=== PATIENT | female | born 1960 | race Caucasian/White ===

== ENCOUNTER → 2018-05-22 16:58 | Outpatient (CLI) | payer MEDICAID, SELFPAY ==
[2018-05-26 14:11] LABS: HPV APTIMA, High Risk Negative (Negative)
== END ==
PROVIDERS: Obstetrics & Gynecology; Family Provider Family Medicine; PCP Family Medicine; Referring Provider Nurse Practitioner Women's Health; Visit Provider Nurse Practitioner Women's Health
DX: N39.45 Continuous leakage (principal); Z12.4 Encounter for screening for malignant neoplasm of cervix
CPT/HCPCS: 87077; 87086; 87088; 87186; 87624; 88175; G0145

== ENCOUNTER → 2018-08-23 12:11 | Outpatient (CLI) | payer MEDICAID, SELFPAY ==
--- NOTE | 2018-08-23 12:15 | BI_ITS ---
MAMMOGRAPHY - BILATERAL SCREENING REASON FOR EXAM: Female, 58 years old. Routine annual screening examination. PERTINENT HISTORY: Sister with breast cancer. TECHNIQUE: Digital bilateral breast nathan (3D mammographic acquisition) in the CC and MLO projections. 2-D mediolateral oblique (MLO) and craniocaudad (CC) views of both breasts were obtained. CAD: Full Field Digital Mammography with Computer Added Detection was performed. COMPARISON: Comparison is made with prior study dated May 10, 2017 and November 27, 2015. FINDINGS: Breast Composition: The breasts are almost entirely fatty. There are no dominant masses or suspicious calcifications. No other significant abnormalities are identified. There has been no significant change since the prior study. BI/SCREENING MAMM (CAD), BILAT IMPRESSION: Stable bilateral screening mammogram. Yearly follow-up mammogram recommended. (A) ASSESSMENT CATEGORY: BIRADS Category 1: Negative. A letter regarding these results will be sent to the patient by the facility within 30 days. Approximately 10% of breast cancers are not detected by mammography. A normal mammogram should not delay biopsy of a clinically suspicious abnormality. [id number] Electronically Signed: Marvel Pierce MD at 14:19 EST , Service support ,
== END ==
PROVIDERS: Family Provider Family Medicine; PCP Family Medicine; Referring Provider Obstetrics & Gynecology; Visit Provider Obstetrics & Gynecology
DX: Z12.31 Encounter for screening mammogram for malignant neoplasm of breast (principal)
CPT/HCPCS: 77063; 77067

== ENCOUNTER → 2018-11-08 | Outpatient (CLI) | payer MEDICAID, SELFPAY ==
[2018-05-22 14:18] VITALS: BMI 43.9
--- NOTE | 2018-11-08 14:40 | NEURO ---
NCS and/or EMG Patient Report Ordering Doctor: Meagan Yusuf DATE OF SERVICE: 11/08/18 Alejandra Rodriguez is a 58-year-old female presents for electrodiagnostic testing of the left upper kennedy. She reports persistent pain around the left shoulder radiating to the hand. Electrodiagnostic findings: Left median motor nerve demonstrates normal distal latency, amplitude and conduction velocity. Normal left ulnar motor response. Normal left ulnar and median F wave. Sensory responses are within normal limits. Needle EMG testing shows no evidence of denervation in any muscles tested. Motor unit action potentials are of normal amplitude and duration. Electrodiagnostic assessment: This is a normal electrdiagnostic study of the left upper limb. There is no electrodiagnostic evidence for peripheral neuropathy or cervical radiculopathy.
== END | disposition home or self-care (01) ==
LOC: PSN 13:43
PROVIDERS: Family Provider Family Medicine; PCP Family Medicine; Referring Provider Physician Assistant; Visit Provider Physician Assistant
DX: R20.0 Anesthesia of skin (principal); R20.2 Paresthesia of skin
CPT/HCPCS: 95886; 95910

== ENCOUNTER → 2019-01-12 | Outpatient (CLI) | payer MEDICAID, SELFPAY ==
--- NOTE | 2019-01-12 13:46 | CT_ITS ---
STUDY: CT ABDOMEN AND PELVIS WITH AND WITHOUT CONTRAST REASON FOR EXAM: Female, 58 years old. Hematuria RADIATION DOSAGE (If Supplied By Facility): CTDIvol = ( 20.69 ) mGy, DLP = ( 2679.04 ) mGycm TECHNIQUE: Transaxial images were obtained from the dome of the diaphragm to the symphysis pubis without oral contrast. 100 IV Isovue 300 was administered. Sagittal and coronal images were reconstructed. Individualized dose optimization techniques were used for this CT. COMPARISON: None. FINDINGS: There is atelectasis noted at the lung bases. There is a trace pericardial effusion. Normal liver. There are surgical clips in the gallbladder fossa consistent with a prior cholecystectomy. Normal spleen. Normal pancreas. Normal bilateral adrenal glands. Normal right kidney. Normal left kidney. Normal visualized stomach. Normal small intestine. Normal colon. The appendix is visualized and appears normal. There is diffuse atherosclerotic calcification of the abdominal aorta, without a demonstrated aneurysm. Normal inferior vena cava. Normal retroperitoneum. Normal urinary bladder. Normal abdominal wall. Normal osseous structures. CT/CT Abd/Pelvis W/WO Contrast IMPRESSION: No cause for patient's hematuria identified on this study. Trace pericardial effusion. Atherosclerosis. Electronically Signed: Aldo Velasco, at 19:24 EDT Tel , Service support ,
[2019-01-12 14:16] LABS: CREATININE FINGERSTICK 1.2 mg/dL (0.55-1.02)
== END | disposition home or self-care (01) ==
LOC: CT 13:44
PROVIDERS: Family Provider Family Medicine; PCP Family Medicine; Referring Provider Urology; Visit Provider Urology
DX: R31.0 Gross hematuria (principal)
CPT/HCPCS: 74178; Q9967

== ENCOUNTER → 2019-08-21 | Outpatient (CLI) | payer MEDICAID, SELFPAY ==
[2019-08-21 13:50] VITALS: BMI 43.9
[2019-08-21 17:03] LABS: Chlamydia Trachomatis by PCR Negative (Negative); Neisserai gonorrhoeae by PCR Negative (Negative); Probe Check PASS; Specimen Processing Control PASS
[2019-08-21 17:04] LABS: Sample Adequacy Control PASS
== END | disposition home or self-care (01) ==
LOC: LABSPEC 15:18
PROVIDERS: PCP Family Medicine; Referring Provider Nurse Practitioner Women's Health; Visit Provider Nurse Practitioner Women's Health
DX: Z11.3 Encounter for screening for infections with a predominantly sexual mode of transmission (principal)
CPT/HCPCS: 87491; 87591

== ENCOUNTER → 2019-09-18 12:02 | Outpatient (CLI) | payer MEDICAID, SELFPAY ==
[2019-08-21 13:50] VITALS: BMI 43.9
--- NOTE | 2019-09-18 12:03 | BI_ITS ---
MAMMOGRAPHY - BILATERAL SCREENING REASON FOR EXAM: Female, 59 years old. Routine annual screening examination. PERTINENT HISTORY: Sister with breast cancer. Chronic right breast pain. TECHNIQUE: Digital bilateral breast yohannes (3D mammographic acquisition) in the CC and MLO projections. 2-D mediolateral oblique (MLO) and craniocaudad (CC) views of both breasts were obtained. CAD: Full Field Digital Mammography with Computer Added Detection was performed. COMPARISON: Comparison is made with prior study dated August 23, 2018 and May 10, 2017. FINDINGS: Breast Composition: The breasts are almost entirely fatty. There are no dominant masses or suspicious calcifications. No other significant abnormalities are identified. There has been no significant change since the prior study. BI/SCREEN MAMM (CAD) W/YOHANNES BILAT IMPRESSION: Stable bilateral screening mammogram. Yearly follow-up mammogram recommended. (A) ASSESSMENT CATEGORY: BIRADS Category 1: Negative. A letter regarding these results will be sent to the patient by the facility within 30 days. Approximately 10% of breast cancers are not detected by mammography. A normal mammogram should not delay biopsy of a clinically suspicious abnormality. [id number] Electronically Signed: Marvel Pierce, at 12:59 EST , Service support ,
== END ==
PROVIDERS: Family Provider Family Medicine; PCP Family Medicine; Referring Provider Obstetrics & Gynecology; Visit Provider Obstetrics & Gynecology
DX: Z12.31 Encounter for screening mammogram for malignant neoplasm of breast (principal)
CPT/HCPCS: 77063; 77067

== ENCOUNTER 2020-07-01 15:40 | Emergency (ER) | payer MEDICAID, SELFPAY ==
[2019-08-21 13:50] VITALS: BMI 43.9
[2020-07-01 15:41] VITALS: BP 92/68; PULSE 67; RESP 21; TEMP 36.8; O2SAT 97; BMI 44.3
--- NOTE | 2020-07-01 15:45 | EKG12_ITS ---
Test Reason : CP Blood Pressure : / mmHG Vent. Rate : 063 BPM Atrial Rate : 063 BPM P-R Int : 146 ms QRS Dur : 090 ms QT Int : 410 ms P-R-T Axes : 067 030 072 degrees QTc Int : 419 ms Normal sinus rhythm Normal ECG Confirmed by GOLDY GUSTAFSON, MARY ([id number]), index editor JIGNA TERRAZAS ([id number]) on 07/09/2020 10:02:39 AM Referred By: POLA Confirmed By:KETURAH WINSLOW MD
--- NOTE | 2020-07-01 16:09 | RAD_ITS ---
STUDY: X-RAY CHEST REASON FOR EXAM: Female, 60 years old. COUGH,ABD PAIN, BODY ACHES TECHNIQUE: Single AP portable view of the chest. COMPARISON: 07/23/2015 FINDINGS: The lungs are clear and expanded. There is no demonstrated pleural abnormality. Normal size heart. Normal mediastinum and juan josé. Normal visualized pulmonary arteries. Normal visualized aortic arch and descending thoracic aorta. Normal visualized thoracic spine. Normal visualized ribs, clavicles, and shoulders. There is no demonstrated abnormality of the visualized soft tissue structures of the upper abdomen. RAD/Chest 1 View (Portable) IMPRESSION: Normal x-ray examination of the chest. Electronically Signed: Broderick Park MD at 16:26 EST Tel , Service support ,
--- NOTE | 2020-07-01 16:34 | ED.DCSUM_ITS ---
History of Present Illness Informant: Patient Narrative: 60-year-old female with extensive past medical history including morbid obesity, hypertension, diabetes, hyperlipidemia presents with concern for feeling unwell. Patient concerned she has pneumonia. Has had intermittent cough. Denies any fever or chills. Patient has had chest pain for multiple years and being seen at urgent care was sent to the emergency department for this issue. States that her sister has similar symptoms. Denies any nausea, vomiting, diaphoresis. Denies any urinary symptoms. <Guero Lindsay - Last Filed: 07/01/20 17:31> <Fili Hill - Last Filed: 07/01/20 17:47> Chief Complaint: Chest Pain Past Medical History Prior records reviewed: Yes Past Medical History: - - HTN, DM, HLD Surgical History: adenoidectomy, cholecystectomy, rotator cuff repair, tonsillectomy, - - tubal ligation. Excision of a cyst from her L neck Lives: With Family Smoking Status: Current every day smoker Alcohol: None Drugs: None <Guero Lindsay - Last Filed: 07/01/20 17:31> <Fili Hill - Last Filed: 07/01/20 17:47> - Allergies and Home Meds Allergies/Adverse Reactions: Allergies Penicillins Allergy (Intermediate, Verified 07/01/20 15:46) Hives carbamazepine [From Tegretol] Adverse Reaction (Intermediate, Verified 07/01/20 15:46) Nausea benztropine Adverse Reaction (Verified 07/01/20 15:46) Unknown diazepam [From Valium] Adverse Reaction (Verified 07/01/20 15:46) Other Sulfa (Sulfonamide Antibiotics) Adverse Reaction (Verified 07/01/20 15:46) Nausea thioridazine Adverse Reaction (Verified 07/01/20 15:46) Nausea thioridazine HCl [From Mellaril] Adverse Reaction (Verified 07/01/20 15:46) Other Primary Care Physician: Homer Bradford MD [Primary Care Provider] - Review of Systems General: Reports: Malaise. Denies: Chills, Fever, Sweats Eyes: Denies: Visual changes - bilaterally, Diplopia ENT: Denies: Rhinorrhea, Sore throat Cardiovascular: Reports: Chest pain. Denies: Palpitations Respiratory: Reports: Cough. Denies: Dyspnea, Dyspnea on exertion Gastrointestinal: Denies: Abdominal pain, Nausea, Vomiting, Diarrhea, Melena, Hematochezia Genitourinary: Denies: Dysuria, Hematuria, Frequency Musculoskeletal: Denies: Back pain, Extremity Pain Skin: Denies: Rash, Wounds Neurological: Denies: Headache, Weakness, Numbness <Guero Lindsay - Last Filed: 07/01/20 17:31> Physical Exam Vital Signs/Narrative: Vital Signs Temp Pulse Resp BP Pulse Ox 07/01/20 15:41 98.2 F 67 21 H 92/68 97 Inital Vital Signs reviewed: Yes General: Well nourished, Well developed, No Acute Distress Head: Normocephalic, Atraumatic Eyes: Perrl, EOMI ENT: Moist mucous membranes, No rhinorrhea Neck: Supple, Nontender Cardiovascular: Regular rate, Regular rhythm, No murmurs Respiratory: No distress, CTA bilaterally, Chest nontender Abdomen: Soft, Nontender, Nondistended, Normal bowel sounds Back: Nontender, Normal Inspection Extremities: Nontender, No edema Skin: Normal color, No rash Neurological: Alert, Oriented x3, Cranial nerves II-XII grossly intact, Normal Strength, Normal Sensation Psychological: Normal affect, Normal Mood <Guero Lindsay - Last Filed: 07/01/20 17:31> Vital Signs/Narrative: Vital Signs Temp Pulse Resp BP Pulse Ox 07/01/20 17:40 57 L 16 128/77 H 95 07/01/20 15:41 98.2 F 67 21 H 92/68 97 <Fili Hill - Last Filed: 07/01/20 17:47> Diagnostic/Tx/Re-eval Chest X-Ray - ED: 1 View, Read by ED Physician, Read by Radiologist, Normal Clinical Impression(s) from Imaging Studies Chest X-Ray 07/01/20 16:09 IMPRESSION: Normal x-ray examination of the chest. Electronically Signed: Broderick Park MD at 16:26 EST Tel , Service support , Laboratory Data 07/01/20 07/01/20 07/01/20 16:20 16:20 16:20 WBC 12.9 H RBC 4.42 Hgb 14.1 Hct 43.4 MCV 98.2 MCH 31.9 MCHC 32.5 RDW Std Deviation 47.3 H RDW Coeff of Robert 13.2 Plt Count 243 MPV 10.4 Immature Gran % (Auto) 0.300 Neut % (Auto) 77.2 H Lymph % (Auto) 15.0 L Hidalgo % (Auto) 5.7 Eos % (Auto) 1.5 Baso % (Auto) 0.3 Absolute Neuts (auto) 10.0 H Absolute Lymphs (auto) 1.94 Nucleated RBC % 0 Sodium 143 Potassium 4.0 Chloride 111 H Carbon Dioxide 31.0 Anion Gap 1 L BUN 13 Creatinine 1.27 H Estim Creat Clear Calc 39.94 Est GFR (MDRD) Af Amer 56 L Est GFR (MDRD) Non-Af 46 L BUN/Creatinine Ratio 10.2 Glucose 94 Lactic Acid 0.8 Calcium 9.0 Total Bilirubin 0.30 AST 18 ALT 25 Alkaline Phosphatase 64 Troponin I < 0.015 C-React Prot Ext Range 10.30 H Total Protein 6.9 Albumin 3.4 Globulin 3.5 Albumin/Globulin Ratio 1.0 - Rhythm Strip Rhythm Strip: Sinus Rhythm Rate: 63 Ectopy: None - EKG Initial EKG Interpretation: Sinus Rhythm - Sinus rhythm at 63 bpm. OH interval of 146 ms. QTC of 418 ms. No evidence of ST elevation or depression at this time. Unchanged from previous done on 07/23/2015. - Medical Decision Making Patient appears well nontoxic. Vital signs within normal limits. Triage blood pressure of 92 systolic. Repeated on my exam and was 110 systolic. Lab work within normal limits. Chest x-ray shows no acute process. Patient given small fluid bolus. Will be signed out pending coronavirus testing at 1730. Patient stable at time of transition of care. <Guero Lindsay - Last Filed: 07/01/20 17:31> - Medical Decision Making Coronavirus test is negative. Patient will be educated on symptomatic treatment. She will be discharged home to follow-up with her PCP <Fili Hill - Last Filed: 07/01/20 17:47> ED Disposition <Guero Lindsay - Last Filed: 07/01/20 17:31> <Fili Hill - Last Filed: 07/01/20 17:47> - Plan for ED Patient: Disposition: Home or Assisted Living Diagnosis: URI (upper respiratory infection) Instructions: ED URI, Viral, No Abx (Adult) Referrals: Homer Bradford MD [Primary Care Provider] -
[2020-07-01 16:36] LABS: Absolute Lymphocyte Count 1.94 X10^3/uL (0.83-4.51); Basophil# 0.04 X10^3/uL; Basophil% 0.3 % (0-1); Eosinophil# 0.19 X10^3/uL; Eosinophils% 1.5 % (0-5); Hematocrit 43.4 % (37-47); Hemoglobin 14.1 g/dL (12.0-15.0); Lymphocyte # 1.94 X10^3/ul (4.0); Mean Corp Hgb Conc 32.5 g/dL (32-36); Mean Corpuscular Hgb 31.9 pg (27.0-32.0); Mean Corpuscular Volume 98.2 fL (81-99); Mean Platelet Vol. 10.4 fl (6.2-12.0); Monocyte# 0.73 X10^3/uL; Monocyte% 5.7 % (0-10); NRBC Flagged by Analyzer 0 % (0-5); Neutrophil # 9.98 X10^3/uL (2.7-7.7); Neutrophil % 77.2 % (47-70); Platelet Count 243 K/mm3 (150-450); RBC Distribution Width CV 13.2 % (11.6-14.6); RBC Distribution Width SD 47.3 fl (35.1-43.9); Red Blood Count 4.42 M/mm3 (4.2-5.4); White Blood Count 12.9 K/mm3 (4.4-11.0)
[2020-07-01 17:07] LABS: Lactic Acid 0.8 mmol/L (0.4-1.9)
[2020-07-01 17:15] LABS: AST(SGOT) 18 U/L (15-37); Alanine Aminotransfer ALT/SGPT 25 U/L (13-56); Albumin, Serum 3.4 g/dL (3.2-5.0); Alkaline Phosphatase 64 U/L (45-117); Anion Gap 1 (5-15); BUN 13 mg/dL (7-18); BUN/Creat Ratio 10.2 RATIO (10-20); Chloride 111 mmol/L (98-107); Creatinine, Serum 1.27 mg/dL (0.55-1.02); EST Glomerular Filtration Rate 46 mL/min (>60); Est Glom Filt Rate - Afr Amer 56 mL/min (>60); Estimated Creatinine Clearance 39.94 ml/min; Globulin 3.5 g/dL (2.2-4.2); Glucose 94 mg/dL (74-106); Protein, Total 6.9 g/dL (6.4-8.2); Sodium Level 143 mmol/L (136-145)
[2020-07-01 17:40] VITALS: BP 128/77; PULSE 57; RESP 16; O2SAT 95
[2020-07-01 17:53] VITALS: BP 119/71; PULSE 61; RESP 15; O2SAT 96
== END 2020-07-01 18:00 | disposition home or self-care (01) ==
PROVIDERS: Emergency Provider Emergency Medicine; PCP Family Medicine
DX: J06.9 Acute upper respiratory infection, unspecified (principal); I10 Essential (primary) hypertension; E11.9 Type 2 diabetes mellitus without complications; E78.5 Hyperlipidemia, unspecified; E66.01 Morbid (severe) obesity due to excess calories; Z79.82 Long term (current) use of aspirin; Z79.84 Long term (current) use of oral hypoglycemic drugs; Z79.899 Other long term (current) drug therapy
CPT/HCPCS: 71045; 80053; 83605; 84484; 85025; 86140; 87040; 87426; 93005; 96360; 99284; J7040; A4216

== ENCOUNTER 2020-08-26 05:28 | Day surgery (SDC) | payer MEDICAID, SELFPAY ==
[2020-08-26] VITALS (8 sets, daily range): BP systolic 94–120; BP diastolic 59–81; PULSE 62–86; RESP 16–18; TEMP 36.2–36.9; O2SAT 92–97; BMI 44.6
[2020-08-26] MEDS: Lactated Ringers 1,000 ML 100 ML IV (06:23)
[2020-08-26] MEDS: Vancomycin IV 1,000 MG/200 ML BAG 200 MG IV (06:24)
--- NOTE | 2020-08-26 07:30 | RAD_ITS ---
STUDY: X-RAY - PELVIS REASON FOR EXAM: Female, 60 years old. INTERSTIM THERAPY 1 TECHNIQUE: One view of the pelvis was obtained. COMPARISON: None. FINDINGS: Intraoperative imaging provided for InterStim therapy. The tip of the electrode is seen along the superior right posterior aspect of the pelvis. RAD/Pelvis 1 or 2 Views IMPRESSION: The tip of the electrode is seen in the posterior superior aspect of the right hemipelvis. Electronically Signed: Marvel Pierce MD at 13:00 EST , Service support ,
[2020-08-26] MEDS: Lidocaine 2% /Epi 1:100 (50ml) 50 ML Vial (08:00)
[2020-08-26 08:01] LABS: Bedside Glucose 124 mg/dL (70-110)
--- NOTE | 2020-08-26 08:24 | DCINST_ITS ---
Discharge Diet: No Restrictions Discharge Activity: May not drive while taking narcotic pain medications., May Not Shower May resume sexual activity in: 4 weeks Additional Activity Instructions:: Minimize lifting, pushing, pulling, turning and bending. Call your doctor if your incision/area has: Continuous Slow Oozing, Sudden Increased Bleeding, Increased Pain/ Swelling, Foul Smelling Discharge Call your doctor if you observe: Fever of 101 or Higher, Inability to urinate, Inability to have a bowel movement, Calf discomfort, Uncontrolled pain Suture Line Care: Avoid Pulling/Pushing, Avoid Pinching/Bending Cleanse incision/area with: Keep Dressing Clean & Dry Allergies/Adverse Reactions: Allergies Penicillins Allergy (Intermediate, Verified 08/26/20 06:03) Hives carbamazepine [From Tegretol] Adverse Reaction (Intermediate, Verified 08/26/20 06:03) Nausea benztropine Adverse Reaction (Verified 08/26/20 06:03) Unknown diazepam [From Valium] Adverse Reaction (Verified 08/26/20 06:03) Other Sulfa (Sulfonamide Antibiotics) Adverse Reaction (Verified 08/26/20 06:03) Nausea thioridazine Adverse Reaction (Verified 08/26/20 06:03) Nausea thioridazine HCl [From Mellaril] Adverse Reaction (Verified 08/26/20 06:03) Other Medications to take at Discharge albuterol sulfate 90 mcg/actuation aerosol inhaler 1 puff INHALATION Q6H 06/22/17 amantadine HCl 100 mg capsule 100 mg PO BID 06/22/17 aspirin 81 mg tablet,delayed release 81 mg PO QDAY 06/22/17 cholecalciferol (vitamin D3) 25 mcg (1,000 unit) capsule 1,000 unit PO ONCE 06/22/17 fludrocortisone 0.1 mg tablet 0.1 mg PO QDAY 06/22/17 hyoscyamine sulfate 0.375 mg tablet,extended release,12 hr 0.375 mg PO BID 06/22/17 lorazepam 0.5 mg tablet 0.5 mg PO BID 06/22/17 lovastatin 20 mg tablet 20 mg PO QDAY 06/22/17 melatonin 10 mg capsule 10 mg PO HS PRN 06/22/17 metformin 500 mg tablet 500 mg PO DAILY 06/22/17 metoprolol tartrate 25 mg tablet 25 mg PO BID 12/06/17 nitroglycerin 0.4 mg sublingual tablet 0.4 mg SUBLINGUAL Q5M PRN 06/22/17 omeprazole 40 mg capsule,delayed release 40 mg PO QDAY 06/22/17 quetiapine 200 mg tablet 200 mg PO BID 06/22/17 spironolactone 25 mg tablet 25 mg PO QDAY 06/22/17 sumatriptan succinate 25 mg tablet 25 mg PO ONCE 06/22/17 trazodone 100 mg tablet 100 mg PO QHS PRN 06/22/17 acetaminophen 325 mg capsule 325 mg PO Q6H 05/22/18 multivitamin,nx-flho-dcauarnv 1 tab PO DAILY 05/22/18 omega 7-hnq-akz-fish oil 1,000 mg (120 mg-180 mg) capsule 1 cap PO DAILY cap 05/22/18 oxybutynin chloride 15 mg tablet,extended release 24 hr 15 mg PO DAILY 05/22/18 Citalopram [Celexa] 10 mg PO DAILY 08/19/20 Isosorbide Mononitrate [Imdur] 30 mg PO DAILY 08/19/20 Mirabegron [Myrbetriq] 50 mg PO DAILY 08/19/20 Mometasone/Formoterol [Dulera 100 Mcg/5 Mcg Inhaler] 8.8 gm IH BID 08/19/20 Cephalexin [Keflex] 500 mg PO Q12 3 Days #6 cap 08/26/20 Oxycodone HCl/Acetaminophen [Percocet 5/325] 2 tablet PO Q8H PRN PRN 7 Days #20 tablet 08/26/20 Primary Care Physician: Homer Bradford MD [Primary Care Provider] - Test Results: Test results from this visit will be discussed in further detail at your follow- up appointment, if applicable. Please Follow Up With: Jennifer Alba MD When: as scheduled next week Proposed Discharge Date: 08/26/20
--- NOTE | 2020-08-26 08:29 | PCM.OPRPT ---
Problem List (1) Urgency of urination Status: Acute (2) Urge incontinence Status: Acute Report of Operation Date of Procedure: 08/26/20 Pre-Operative Diagnosis: Refractory urgency of urination, urge incontinence Post-Operative Diagnosis: Same Surgery/Procedure Performed:: InterStim stage I Description of Surgical Findings:: right side, S3, curved stylette, good estefani and toe response on all 4 leads. Type of Anesthesia:: MAC Estimated Blood Loss (mL): 5cc Description of Procedure: The patient is a 60-year-old female who has failed level 1 and 2 management for her urgency and urge incontinence. She has also failed PTNS as an outpatient. She now presents for trial InterStim 1 therapy. Informed consent was obtained including a discussion of the risks benefits alternatives to the procedure and the current COVID-19 virus situation. The patient was taken to the operating room and placed in a prone position on the operating room table. She was appropriately secured to the table and dependent areas were padded. Anesthesia monitored the head, neck, airway, IV access and vital signs throughout the case. Once anesthesia was appropriately administered the patient was prepped and draped in usual sterile fashion. Landmarks were identified using fluoroscopy of the pelvis. The skin above the right S3 foramen was infiltrated with 2% lidocaine with epinephrine. The needle was then inserted through the S3 foramen confirmed on lateral view of the sacrum. There was a good estefani and toe response. The guidewire was then passed through the needle and an incision was made in the skin. The dilator was then passed into appropriate position as identified on fluoroscopy. The lead was then inserted into position using the curved stylette. On stimulation all 4 leads received good estefani and toe response. The lead obturator was then removed and the dilator sheath was removed. The pocket site was identified infiltrated with lidocaine and an incision was made. The tunneling device was used to bring the lead into correct position. The tunneling device was used once again to attach to the lead extension with it exiting on the contralateral side. The lead extension was secured using Prolene suture and the lead was dried and inserted into the lead extension and secured using the torque wrench. At this time the pocket site was closed with 3-0 interrupted Vicryl followed by 4-0 subcuticular suturing. The lead insertion site was closed with 4-0 Vicryl and the lead extension exit site was also closed with 4-0 Vicryl. Skin glue was applied to the pocket site and lead insertion sites. Tegaderm was placed followed by cloth tape over the stimulator. The patient was awakened and taken to the recovery room in good condition. There were no complications during this procedure. Grafts/Implants Used: InterStim lead and lead extension - Complications None - Admit VTE Documentation VTE Present on Admission: No VTE Mechan Device Prophylaxis: None VTE Pharm Prophylaxis ordered?: No Reason prophylaxis not ordered:: Treatment Not Indicated
== END 2020-08-26 10:51 | disposition home or self-care (01) ==
LOC: SDC 05:29 → AC 05:29
PROVIDERS: PCP Family Medicine; Referring Provider Urology; Visit Provider Urology
PROC: (CPT 64581; principal; 2020-08-26 07:20)
DX: N39.41 Urge incontinence (principal); Z20.828 Contact with and (suspected) exposure to other viral communicable diseases; I10 Essential (primary) hypertension; J44.9 Chronic obstructive pulmonary disease, unspecified; K21.9 Gastro-esophageal reflux disease without esophagitis; E11.9 Type 2 diabetes mellitus without complications; F41.9 Anxiety disorder, unspecified; F32.9 Major depressive disorder, single episode, unspecified; Z86.2 Personal history of diseases of the blood and blood-forming organs and certain disorders involving the immune mechanism; Z86.73 Personal history of transient ischemic attack (TIA), and cerebral infarction without residual deficits; Z79.84 Long term (current) use of oral hypoglycemic drugs; Z79.899 Other long term (current) drug therapy
CPT/HCPCS: 00400; 64581; 64590; 72170; 76000; 82962; 87426; C9803; J7120; C1820; J2405

== ENCOUNTER 2020-09-09 05:20 | Day surgery (SDC) | payer MEDICAID, SELFPAY ==
[2020-08-26 05:59] VITALS: BMI 44.6
[2020-09-09] VITALS (8 sets, daily range): BP systolic 88–134; BP diastolic 11–73; PULSE 67–74; RESP 16–18; TEMP 36.8–37.2; O2SAT 93–97; BMI 43.6
[2020-09-09] MEDS: Vancomycin IV 1,000 MG/200 ML BAG 200 MG IV (06:14)
[2020-09-09] MEDS: Lactated Ringers 1,000 ML 100 ML IV (06:14)
--- NOTE | 2020-09-09 07:28 | PCM.OPRPT ---
Problem List (1) Urgency of urination Status: Acute (2) Urge incontinence Status: Acute Report of Operation Date of Procedure: 09/09/20 Pre-Operative Diagnosis: Urgency of urination, urge incontinence Post-Operative Diagnosis: same Surgery/Procedure Performed:: Interstim Stage 2 Type of Anesthesia:: MAC Description of Procedure: The patient is a 60-year-old female who has successfully undergone a stage I InterStim and now presents for implantation of the IPG. Informed consent was obtained including a discussion of the risks of COVID-19. She understood and agreed to proceed. The patient was taken to the operating room and placed on the operating room table in a prone position and was appropriately padded and secured to the table. Anesthesia monitored the head, neck, airway, IV access and vital signs throughout the case. Once anesthesia was appropriate ministered the patient was prepped and draped in usual sterile fashion. The lateral aspect of her incision over the pocket site was infiltrated with lidocaine. The incision was opened with a knife followed by hemostats. There is a small amount of clear serous fluid from the pocket site that did not appear infected. The lead was brought into the operative field. Using the torque wrench, the lead was released from the lead extension. The lead extension was cut and removed from the field. The pocket site was enlarged using blunt dissection and Bovie cautery. Hemostasis was achieved with cautery. Care was taken to avoid being close to the lead. The lead was dried and inserted into the IPG, and secured using the torque wrench. The IPG was placed into the pocket site and impedances were tested and found to be appropriate. The incision was closed in 2 layers using 3-0 interrupted Vicryl deep, and 4-0 subcuticular suturing on the skin. Skin glue was then applied and allowed to dry completely. The patient was then awakened and taken to the recovery room in good condition. There were no complications during the procedure. Grafts/Implants Used: IPG Interstim - Complications none - Admit VTE Documentation VTE Present on Admission: Yes VTE Mechan Device Prophylaxis: SCD's VTE Pharm Prophylaxis ordered?: No Reason prophylaxis not ordered:: Treatment Not Indicated
[2020-09-09] MEDS: Lidocaine 1% /Epi 1:100 (20ml) 20 ML Vial (07:41)
--- NOTE | 2020-09-09 08:05 | PCM.DC.URO ---
Discharge Diet: No Restrictions Discharge Activity: May not drive while taking narcotic pain medications., May Shower May resume sexual activity in: 1 week Call your doctor if your incision/area has: Continuous Slow Oozing, Sudden Increased Bleeding, Increased Pain/ Swelling, Increased Redness, Foul Smelling Discharge, Swelling at the incision site Call your doctor if you observe: Fever of 101 or Higher, Inability to urinate, Inability to have a bowel movement, Calf discomfort, Uncontrolled pain Allergies/Adverse Reactions: Allergies Penicillins Allergy (Intermediate, Verified 09/05/20 11:25) Hives carbamazepine [From Tegretol] Adverse Reaction (Intermediate, Verified 09/05/20 11:25) Nausea benztropine Adverse Reaction (Verified 09/05/20 11:25) Unknown diazepam [From Valium] Adverse Reaction (Verified 09/05/20 11:25) Other Sulfa (Sulfonamide Antibiotics) Adverse Reaction (Verified 09/05/20 11:25) Nausea thioridazine Adverse Reaction (Verified 09/05/20 11:25) Nausea thioridazine HCl [From Mellaril] Adverse Reaction (Verified 09/05/20 11:25) Other Medications to take at Discharge albuterol sulfate 90 mcg/actuation aerosol inhaler 1 puff INHALATION Q6H 06/22/17 amantadine HCl 100 mg capsule 100 mg PO BID 06/22/17 aspirin 81 mg tablet,delayed release 81 mg PO QDAY 06/22/17 cholecalciferol (vitamin D3) 25 mcg (1,000 unit) capsule 1,000 unit PO ONCE 06/22/17 fludrocortisone 0.1 mg tablet 0.1 mg PO QDAY 06/22/17 hyoscyamine sulfate 0.375 mg tablet,extended release,12 hr 0.375 mg PO BID 06/22/17 lorazepam 0.5 mg tablet 0.5 mg PO BID 06/22/17 lovastatin 20 mg tablet 20 mg PO QDAY 06/22/17 melatonin 10 mg capsule 10 mg PO HS PRN 06/22/17 metformin 500 mg tablet 500 mg PO DAILY 06/22/17 metoprolol tartrate 25 mg tablet 25 mg PO BID 06/22/17 nitroglycerin 0.4 mg sublingual tablet 0.4 mg SUBLINGUAL Q5M PRN 06/22/17 omeprazole 40 mg capsule,delayed release 40 mg PO QDAY 06/22/17 quetiapine 200 mg tablet 200 mg PO BID 06/22/17 spironolactone 25 mg tablet 25 mg PO QDAY 06/22/17 sumatriptan succinate 25 mg tablet 25 mg PO ONCE 06/22/17 trazodone 100 mg tablet 100 mg PO QHS PRN 06/22/17 acetaminophen 325 mg capsule 325 mg PO Q6H 05/22/18 multivitamin,ig-kekx-zmrcvgwi 1 tab PO DAILY 05/22/18 omega 1-oki-uyh-fish oil 1,000 mg (120 mg-180 mg) capsule 1 cap PO DAILY cap 05/22/18 oxybutynin chloride 15 mg tablet,extended release 24 hr 15 mg PO DAILY 05/22/18 Citalopram [Celexa] 10 mg PO DAILY 08/19/20 Isosorbide Mononitrate [Imdur] 30 mg PO DAILY 08/19/20 Mirabegron [Myrbetriq] 50 mg PO DAILY 08/19/20 Mometasone/Formoterol [Dulera 100 Mcg/5 Mcg Inhaler] 8.8 gm IH BID 08/19/20 Cephalexin [Keflex] 500 mg PO Q12 3 Days #6 cap 09/09/20 Oxycodone HCl/Acetaminophen [Percocet 5/325] 2 tablet PO Q8H PRN PRN 7 Days #20 tablet 09/09/20 The following prescriptions were given: Cephalexin [Keflex] 500 mg PO Q12 3 Days #6 cap Transmission Status: Pending to [place] [address] Oxycodone HCl/Acetaminophen [Percocet 5/325] 2 tablet PO Q8H PRN PRN 7 Days #20 tablet PRN Reason: Pain Transmission Status: Sent to [place] [address] Primary Care Physician: Homer Bradford MD [Primary Care Provider] - Test Results: Test results from this visit will be discussed in further detail at your follow-up appointment, if applicable. Please Follow Up With: Jennifer Alba MD When: call for appt to be seen in 2 weeks Proposed Discharge Date: 09/09/20
--- NOTE | 2020-09-09 08:31 | SUR.PREOP ---
Accucheck of 119 obtained 09/09/2020 at 0640 but did not record time correctly due to computer system update.
[2020-09-09 09:15] LABS: Bedside Glucose 119 mg/dL (70-110)
== END 2020-09-09 09:00 | disposition home or self-care (01) ==
LOC: SDC 05:20 → AC 05:21
PROVIDERS: PCP Family Medicine; Referring Provider Urology; Visit Provider Urology
PROC: (CPT 64581; principal; 2020-09-09 07:20)
DX: N39.41 Urge incontinence (principal); R35.1 Nocturia; Z20.828 Contact with and (suspected) exposure to other viral communicable diseases; I10 Essential (primary) hypertension; J44.9 Chronic obstructive pulmonary disease, unspecified; K21.9 Gastro-esophageal reflux disease without esophagitis; F41.9 Anxiety disorder, unspecified; F32.9 Major depressive disorder, single episode, unspecified; Z86.2 Personal history of diseases of the blood and blood-forming organs and certain disorders involving the immune mechanism; Z79.899 Other long term (current) drug therapy; F17.200 Nicotine dependence, unspecified, uncomplicated
CPT/HCPCS: 64581; 64590; 82962; 87426; C9803; J7120; C1767; J2405

== ENCOUNTER → 2021-06-24 07:55 | Outpatient (CLI) | payer MEDICAID, SELFPAY ==
--- NOTE | 2021-06-24 07:57 | BI_ITS ---
MAMMOGRAPHY - BILATERAL SCREENING REASON FOR EXAM: Female, 61 years old. Routine annual screening examination. PERTINENT HISTORY: Sister with breast cancer. TECHNIQUE: Digital bilateral breast yohannes (3D mammographic acquisition) in the CC and MLO projections. 2-D mediolateral oblique (MLO) and craniocaudad (CC) views of both breasts were obtained. CAD: Full Field Digital Mammography with Computer Added Detection was performed. COMPARISON: Comparison is made with prior study of 09/18/2019 and 08/23/2018. FINDINGS: Breast Composition: The breasts are almost entirely fatty. There are no dominant masses or suspicious calcifications. No other significant abnormalities are identified. There has been no significant change since the prior study. BI/SCRN MAMM (CAD)W/YOHANNES BILAT IMPRESSION: Stable bilateral screening mammogram. Yearly follow-up mammogram recommended. (A) ASSESSMENT CATEGORY: BIRADS Category 1: Negative. A letter regarding these results will be sent to the patient by the facility within 30 days. Approximately 10% of breast cancers are not detected by mammography. A normal mammogram should not delay biopsy of a clinically suspicious abnormality. [id number] Electronically Signed: Marvel Pierce MD at 11:11 EST , Service support ,
== END ==
PROVIDERS: PCP Family Medicine; Visit Provider Obstetrics & Gynecology
DX: Z12.31 Encounter for screening mammogram for malignant neoplasm of breast (principal)
CPT/HCPCS: 77063; 77067

== ENCOUNTER 2021-08-25 15:42 | Inpatient (IN) | payer MEDICAID, SELFPAY ==
[2021-08-25] VITALS (20 sets, daily range): BP systolic 82–151; BP diastolic 51–135; PULSE 82–110; RESP 12–26; TEMP 36.6–37.7; O2SAT 69–95; BMI 51.5; BMI 43.7
--- NOTE | 2021-08-25 16:04 | EKG12_ITS ---
Test Reason : Blood Pressure : / mmHG Vent. Rate : 093 BPM Atrial Rate : 234 BPM P-R Int : 000 ms QRS Dur : 082 ms QT Int : 372 ms P-R-T Axes : 053 010 073 degrees QTc Int : 462 ms Sinus rhythm Abnormal ECG Confirmed by CHEL RUIZ MD ([id number]), publications editor JIGNA TERRAZAS ([id number]) on 08/27/2021 2:32:54 PM Referred By: DAQUAN Confirmed By:CHEL RUIZ MD
--- NOTE | 2021-08-25 16:11 | EDS_ITS ---
HPI History of Present Illness Chief Complaint: Shortness of Breath Detail of Chief Complaint: Shortness of breath, cough RICH Informant: patient and other Onset/Context/Timing Onset: Weeks (Approximately 2 weeks ago) Context: gradual Timing: Continuous Quality: Positive for Dyspnea on exertion; Negative for Orthopnea, PND and Wheez ing Current Severity: Mild (On oxygen at rest) Maximum Severity: Severe Worsened by: Exertion and Coughing Relieved by: Rest and Oxygen Associated Symptoms cough, fever, sore throat and chills Chest Pain: Positive for None Narrative Narrative: Patient is a middle-aged woman who is a smoker with multiple medical problems who presents with shortness of breath. She acknowledges her symptoms started 2 weeks ago. She is having difficulty phonating. Questions were yes and no so that she was able to respond. 7 difficulty responding because her tongue and mouth are very dry. She apparently lives in a mobile home with 2 relatives. intake worker brought her to the emergency room because she appeared short of breath. I was informed by nurse that her pulse ox was 69% on room air and she was cyanotic. Uncertain whether she has been vaccinated for Covid. There is conflicting information regarding if she had Covid or not. It was determined she is never been tested. She denies history of PE. She denies leg pain, swelling discoloration. She denies urinary symptoms. She denies nausea or vomiting. PE Risk Factors: Negative for Cancer, OCP + Smoking + > 35, Prior DVT or PE, Recent immobilization, Recent surgery and Recent travel Prior similar symptoms: No Recent Illness/Hospitalization: No PFSH PFS Medical History (Updated 08/25/21 @ 18:[address] Issa Chapin MD) Arthritis Asthma Diabetes Frequent headaches Gastrointestinal problem Heart disease History of back problems Hyperlipidemia IBS (irritable bowel syndrome) Migraines Stroke Home Medications albuterol sulfate 90 mcg/actuation aerosol inhaler 1 puff INHALATION Q6H 06/22/17 [History Last Taken 09/08/20] amantadine HCl 100 mg capsule 100 mg PO BID 06/22/17 [History Last Taken ] fludrocortisone 0.1 mg tablet 0.1 mg PO QDAY 06/22/17 [History Last Taken 09/08/20] hyoscyamine sulfate 0.375 mg tablet,extended release,12 hr 0.375 mg PO BID 06/22/17 [History Last Taken 09/08/20] lorazepam 0.5 mg tablet 0.5 mg PO BID PRN PRN 06/22/17 [History Last Taken 09/08/20] lovastatin 20 mg tablet 20 mg PO QDAY 06/22/17 [History Last Taken 09/08/20] melatonin 10 mg capsule 10 mg PO HS PRN 06/22/17 [History Last Taken 09/08/20] metformin 500 mg tablet 500 mg PO DAILY 06/22/17 [History Last Taken 09/08/20] metoprolol tartrate 25 mg tablet 25 mg PO BID 06/22/17 [History Last Taken 09/08/20] nitroglycerin 0.4 mg sublingual tablet 0.4 mg SUBLINGUAL Q5M PRN 06/22/17 [History Last Taken 09/08/20] omeprazole 40 mg capsule,delayed release 40 mg PO QDAY 06/22/17 [History Last Taken 09/08/20] quetiapine 200 mg tablet 200 mg PO BID 06/22/17 [History Last Taken 09/08/20] spironolactone 25 mg tablet 25 mg PO QDAY 06/22/17 [History Last Taken 09/08/20] trazodone 100 mg tablet 200 mg PO QHS PRN 06/22/17 [History Last Taken 09/08/20] mirabegron 25 mg PO DAILY 08/19/20 [History Last Taken 09/08/20] citalopram [Celexa] 10 mg PO DAILY 08/25/21 [History Last Taken Unknown] rizatriptan 10 mg PO DAILY 08/25/21 [History Last Taken Unknown] topiramate [Topamax] 25 mg PO BID 08/25/21 [History Last Taken Unknown] Allergy/AdvReac Type Severity Reaction Status Date / Time Penicillins Allergy Intermediate Hives Verified 08/25/21 15:44 carbamazepine [From Tegretol] AdvReac Intermediate Nausea Verified 08/25/21 15:44 benztropine AdvReac Unknown Verified 08/25/21 15:44 diazepam [From Valium] AdvReac Other Verified 08/25/21 15:44 Sulfa (Sulfonamide AdvReac Nausea Verified 08/25/21 15:44 Antibiotics) thioridazine AdvReac Nausea Verified 08/25/21 15:44 thioridazine HCl AdvReac Other Verified 08/25/21 15:44 [From [facility]] Family History Grandmother Cancer stomach Father Cancer lung Sister Breast cancer Surgical History H/O dilation and curettage H/O hand surgery H/O shoulder surgery History of elbow surgery History of tonsillectomy Hx of cholecystectomy Social History (Updated 08/25/21 @ 16:[address] Issa Chapin MD) household members: family housing: other details: Mobile home Smoking Status: Current every day smoker tobacco type: cigarettes alcohol intake: never substance use type: does not use caffeine: Yes what type of physical activity do you participate in: walking seatbelt use: always do you feel safe at home: Yes ROS ROS ED Constitutional Constitutional ED: Reports fever(s) and sweats; Denies chills Eyes Eyes: Denies blurry vision, change in vision or diplopia ENT ENT ED: Reports rhinorrhea and sore throat; Denies ear pain Cardiovascular Cardiovascular: Denies chest pain, orthopnea, palpitations or paroxysmal nocturnal dyspnea Respiratory/Chest Respiratory/Chest: Reports cough, dyspnea and dyspnea on exertion; Denies orthopnea, paroxysmal nocturnal dyspnea or sputum Gastrointestinal Gastrointestinal: Reports nausea; Denies abdominal pain, diarrhea or vomiting Genitourinary Genitourinary ED: Denies dysuria, hematuria or urinary frequency Musculoskeletal Musculoskeletal: Reports myalgias; Denies arthralgias, back pain or neck pain Integumentary Denies rash Neurologic Neurologic: Reports weakness; Denies headache(s) Psychiatric Psychiatric: Reports depression Endocrine Endocrinology: Denies polydipsia, polyphagia or polyuria Hematologic/Lymphatic Hematologic/Lymphatic: Denies easy bleeding or easy bruising EXAM Physical Exam Const Vital Signs: 08/25/21 15:44 08/25/21 15:49 08/25/21 16:22 Temperature 99.9 F H Temperature Source Temporal Pulse Rate 110 H 94 Respiratory Rate 22 H 20 H Respiratory Effort Blood Pressure 151/135 H 82/51 L Blood Pressure Mean 140 61 Pulse Ox 69 90 93 Oxygen Delivery Method Room Air Nasal Cannula Nasal Cannula Oxygen Flow Rate (L/min) 6 8 08/25/21 16:23 08/25/21 16:49 08/25/21 17:49 Temperature 98 F 98 F Temperature Source Temporal Temporal Pulse Rate 90 84 Respiratory Rate 20 H 20 H Respiratory Effort Short of Breath Labored Blood Pressure 105/64 102/57 L Blood Pressure Mean 77 72 Pulse Ox 92 93 Oxygen Delivery Method Nasal Cannula Oxygen Flow Rate (L/min) 08/25/21 18:00 Temperature 98 F Temperature Source Temporal Pulse Rate 82 Respiratory Rate 20 H Respiratory Effort Blood Pressure 102/57 L Blood Pressure Mean 72 Pulse Ox 93 Oxygen Delivery Method Nasal Cannula Oxygen Flow Rate (L/min) Positive well nourished, well developed, obese and unkempt General Appearance ED: unkempt and well developed; Negative for NAD or pallor Nutritional Appearance: obese HEENT Reports TM's clear and dry mucous membranes HEENT Narrative: Nares patent. Ears normal. atraumatic Tympanic Membrane ED: Yes TM's clear Mouth ED: Yes dry mucous membranes Mouth: dry mucous membranes Eyes PERRL and EOMs intact bilaterally General Eye ED: Negative for pale conjunctiva or scleral icterus Neck no lymphadenopathy, supple, no meningeal signs and no JVD Neck Narrative: Trachea is midline. There is no inspiratory expiratory stridor. Resp normal respiratory effort and No clear to auscultation bilaterally Auscultation: rales bilateral base Cardio regular rate, S1 normal heart sound, S2 normal heart sound and no murmurs Rate: tachycardic GI non-tender, non-distended and no masses Auscultation: normoactive bowel sounds Palpation: soft Back/Spine no CVA tenderness and normal to inspection Extremity normal to inspection Extremity Narrative: There is no asymmetry, swelling, discoloration, leg vein distention, palpable cords or tenderness along the distribution of the deep venous system. General Extremety ED: Negative for edema or tenderness General Extremity: Negative for edema Neuro oriented x3, CN's II-XII intact bilaterally and no sensory deficits noted Raysa Coma Scale: document GCS findings Spontaneous Obeys Commands Oriented 15 Sensorium / Orientation: alert Motor Exam: strength 5/5 throughout Psych mental status grossly normal Appearance: unkempt Thought Process: normal thought process Skin no wounds General Skin Exam: Negative for jaundice or pallor Lesions: no lesions Rashes: no rashes MDM MDM MDM Narrative Medical decision making narrative: With bilateral basilar rales hypoxia cough need to evaluate for Covid infection versus bacterial pneumonia. If there is no evidence of infiltrate on x-ray will need a CTA to rule out pulmonary embolus. EKG was obtained to rule out cardiac ischemia. Sepsis work-up was undertaken. VBG was obtained because of concern for for CO2 retention. Antibiotics for commune acquired pneumonia were ordered. Reviewing patient's chart at 1725 reveals a blood pressure of 82/51. An additional liter of normal saline was ordered. If Covid test is negative with a lactate of 4.7 patient has septic shock due to bilateral pneumonia. She was treated with antibiotics for presumed community- acquired pneumonia. Still awaiting results of Covid PCR test. Pages in place to hospitalist since patient will require admission and most likely placed in the ICU. Will inform hospitalist if Covid test is negative patient will require an additional 2 L of saline. Lab Data Attestation: I reviewed the patient's lab results. Lab results narrative: I was informed at 1647.lactate is 4.7. Since there is concern for Covid pneumonia patient will initially receive a 1 L bolus especially since clinically she is dehydrated. If her Covid test is negative will administer the 30 cc/kg bolus which will be approximately 4 L. Labs: Laboratory Results - last 24 hr 08/25/21 08/25/21 08/25/21 16:00 16:00 16:00 WBC 10.7 RBC 4.47 Hgb 14.2 Hct 42.6 MCV 95.3 MCH 31.8 MCHC 33.3 RDW Std Deviation 49.8 H RDW Coeff of Robert 14.0 Plt Count 341 MPV 9.8 Immature Gran % (Auto) 1.700 H Neut % (Auto) 80.2 H Lymph % (Auto) 15.3 L Lyon % (Auto) 2.4 Eos % (Auto) 0.0 Baso % (Auto) 0.4 Absolute Neuts (auto) 8.6 H Absolute Lymphs (auto) 1.64 Nucleated RBC % 2.1 Platelet Estimate ADEQUATE RBC Morphology N CHROM Anisocytosis RARE Macrocytosis RARE Ovalocytes RARE PT 14.0 INR 1.1 APTT 29.2 Sodium 143 Potassium 3.3 L Chloride 107 Carbon Dioxide 27.0 Anion Gap 9 BUN 25 H Creatinine 1.76 H Estim Creat Clear Calc 29.72 Est GFR (MDRD) Af Amer 38 L Est GFR (MDRD) Non-Af 31 L BUN/Creatinine Ratio 14.2 Glucose 103 Lactic Acid Calcium 9.0 Total Bilirubin 1.10 H AST 101 H ALT 57 H Alkaline Phosphatase 189 H Total Protein 6.8 Albumin 2.4 L Globulin 4.4 H Albumin/Globulin Ratio 0.5 L COVID-19 (GERARDO) 08/25/21 08/25/21 16:00 16:20 WBC RBC Hgb Hct MCV MCH MCHC RDW Std Deviation RDW Coeff of Robert Plt Count MPV Immature Gran % (Auto) Neut % (Auto) Lymph % (Auto) Lyon % (Auto) Eos % (Auto) Baso % (Auto) Absolute Neuts (auto) Absolute Lymphs (auto) Nucleated RBC % Platelet Estimate RBC Morphology Anisocytosis Macrocytosis Ovalocytes PT INR APTT Sodium Potassium Chloride Carbon Dioxide Anion Gap BUN Creatinine Estim Creat Clear Calc Est GFR (MDRD) Af Amer Est GFR (MDRD) Non-Af BUN/Creatinine Ratio Glucose Lactic Acid 4.7 H* Calcium Total Bilirubin AST ALT Alkaline Phosphatase Total Protein Albumin Globulin Albumin/Globulin Ratio COVID-19 (GERARDO) Not Detected VBG reveals no evidence of retention. pH is 7.41, PCO2 45, PO2 26, bicarb 29.1 with a base excess of +4.6. Saturation is 49%. ABG Data ABG results: ABG 08/25/21 16:33 Specimen Type TYRON VBG pH 7.42 VBG pO2 26 VBG HCO3 29 H VBG Total CO2 31 VBG O2 Sat (Calc) 49 L VBG Base Excess 5 H POC Mix VBG pCO2 Pt Tmp 45.0 O2 Delivery Device Cannula Liter Flow 8.0 Radiography Chest X-Ray - ED: 1 View (Single view Pillard full chest x-ray reveals bilateral interstitial infiltrates. Borderline cardiomegaly. Hilum is unremarkable. Osseous structures unremarkable. Chest x-ray with interpreted by me at 1628.) Diagnostic Testing: Clinical Impression(s) from Imaging Studies Chest X-Ray 08/25/21 16:25 IMPRESSION: Multilobar pulmonary infiltrates suggesting pneumonia. Electronically Signed: Dwain Yost MD (Brooks) at 16:43 EST Reading Location ID and State: [facility] / [place] , Service support , EKG Initial EKG: Attestation: I personally reviewed and interpreted this EKG as follows: Interpretation: Sinus Rhythm (Ventricular rate is 93. Disagree with computer interpretation of atrial flutter. AR interval is approximately 160 ms. Cures duration 82 ms. QT durations 172 ms. [place] is normal.) Critical Care Time Critical Care Time: Yes Critical care time (excluding procedures): 30-74 minutes (42 minutes), Including time spent: (History, physical, documentation, review of prior records, interpretation of laboratory results and initiation of therapy for sepsis and hypotension), Discussing w/Patient &/or Family/Application Architect Manager, Discussing w/Consultants and Arranging Admission or Transfer Discharge Plan Triage Chief Complaint: Shortness of Breath ED Provider: Issa Chapin Dx/Rx/DC Orders Clinical Impression: Acute respiratory failure with hypoxia, Bilateral interstitial pneumonia, Acute on chronic renal insufficiency, Elevated liver transaminase level, Dehydration, moderate, Acidosis, lactic, Acute hypotension, Septic shock Prescriptions: No Action amantadine HCl 100 mg capsule 100 mg PO BID RF: 0 fludrocortisone 0.1 mg tablet 0.1 mg PO QDAY RF: 0 lorazepam [Ativan] 0.5 mg tablet 0.5 mg PO BID PRN PRN (Reason: Anxiety) RF: 0 lovastatin 20 mg tablet 20 mg PO QDAY RF: 0 melatonin 10 mg capsule 10 mg PO HS PRN (Reason: Sleep) RF: 0 metformin 500 mg tablet 500 mg PO DAILY RF: 0 metoprolol tartrate 25 mg tablet 25 mg PO BID RF: 0 nitroglycerin 0.4 mg tablet, sublingual 0.4 mg SUBLINGUAL Q5M PRN (Reason: CHEST PAIN) RF: 0 omeprazole 40 mg capsule,delayed release(DR/EC) 40 mg PO QDAY RF: 0 hyoscyamine sulfate [Oscimin SR] 0.375 mg tablet extended release 12 hr 0.375 mg PO BID RF: 0 quetiapine [Seroquel] 200 mg tablet 200 mg PO BID RF: 0 spironolactone 25 mg tablet 25 mg PO QDAY RF: 0 trazodone 100 mg tablet 200 mg PO QHS PRN (Reason: Sleep) RF: 0 albuterol sulfate [Ventolin HFA] 90 mcg/actuation HFA aerosol inhaler 1 puff INHALATION Q6H RF: 0 mirabegron 50 MG tablet extended release 24 hr 25 mg PO DAILY RF: 0 citalopram [Celexa] 10 mg Tablet 10 mg PO DAILY RF: 0 rizatriptan 10 mg Tablet 10 mg PO DAILY RF: 0 topiramate [Topamax] 25 mg Tablet 25 mg PO BID RF: 0 Primary Care Provider: Homer Bradford Referrals: Homer Bradford MD [Primary Care Provider] - Disposition Disposition: Acute Care Hospital [facility]
[2021-08-25 16:13] LABS: Absolute Lymphocyte Count 1.64 X10^3/uL (0.83-4.51); Absolute Neutrophil Count 8.6 X10^3/uL (2.0-7.7); Basophil# 0.04 X10^3/uL; Basophil% 0.4 % (0-1); Hematocrit 42.6 % (37-47); Hemoglobin 14.2 g/dL (12.0-15.0); Lymphocyte # 1.64 X10^3/ul (0.83-4.51); Lymphocyte % 15.3 % (19-41); Mean Corp Hgb Conc 33.3 g/dL (32-36); Mean Corpuscular Hgb 31.8 pg (27.0-32.0); Mean Corpuscular Volume 95.3 fL (81-99); Mean Platelet Vol. 9.8 fl (6.2-12.0); Monocyte# 0.26 X10^3/uL; Monocyte% 2.4 % (0-10); NRBC Flagged by Analyzer 2.1 % (0-5); Neutrophil # 8.58 X10^3/uL (2.7-7.7); Neutrophil % 80.2 % (47-70); POSITIVE MORPHOLOGY YES; Platelet Count 341 K/mm3 (150-450); RBC Distribution Width SD 49.8 fl (35.1-43.9); Red Blood Count 4.47 M/mm3 (4.2-5.4); White Blood Count 10.7 K/mm3 (4.4-11.0)
[2021-08-25 16:18] LABS: Differential Indicated SCAN CRITERIA MET
[2021-08-25] MEDS: levoFLOXacin IV 750 MG/150 ML BAG 100 MG IV (16:23)
--- NOTE | 2021-08-25 16:25 | RAD_ITS ---
STUDY: X-RAY CHEST REASON FOR EXAM: Female, 61 years old. Copy shortness of breath TECHNIQUE: AP COMPARISON: 07/01/2020 FINDINGS: Multilobar pulmonary infiltrates involving the bilateral lower lobes, bilateral perihilar regions and left upper lobe are new since prior study. There is no demonstrated pleural abnormality. Normal size heart. Normal mediastinum and juan josé. Normal visualized pulmonary arteries. There is atherosclerotic calcification of the aortic arch with tortuosity. No acute bony process. There is no demonstrated abnormality of the visualized soft tissue structures of the upper abdomen. RAD/Chest 1 View (Portable) IMPRESSION: Multilobar pulmonary infiltrates suggesting pneumonia. Electronically Signed: Dawin Yost MD (Brooks) at 16:43 EST ,
[2021-08-25 16:26] LABS: International Normalized Ratio 1.1
[2021-08-25 16:27] LABS: Partial Thromboplast Time 29.2 Seconds (24.1-36.2)
[2021-08-25] MEDS: 0.9% Normal Saline 1,000 ML 150 ML IV (16:30)
[2021-08-25 16:41] LABS: Blood Gas Specimen Type VEN; O2 Delivery Device Cannula; VBG BASE EXCESS 5 mmol/L (-1.0-3.5); VBG Bicarbonate 29 mmol/L (22-26); VBG PO2 26 mmHg (25-40); VBG SO2 49 % (50-70); VBG TCO2 31 mmol/L (23-33); VBG pH 7.42 (7.32-7.42)
[2021-08-25 16:42] LABS: BUN 25 mg/dL (7-18); Creatinine, Serum 1.76 mg/dL (0.55-1.02); EST Glomerular Filtration Rate 31 mL/min (>60); Estimated Creatinine Clearance 29.72 ml/min; Glucose 103 mg/dL (74-106)
[2021-08-25 16:43] LABS: ALB/GLOB Ratio 0.5 RATIO (0.9-2.4); AST(SGOT) 101 U/L (15-37); Alanine Aminotransfer ALT/SGPT 57 U/L (13-56); Albumin, Serum 2.4 g/dL (3.2-5.0); Alkaline Phosphatase 189 U/L (45-117); Anion Gap 9 (5-15); BUN/Creat Ratio 14.2 RATIO (10-20); Chloride 107 mmol/L (98-107); Est Glom Filt Rate - Afr Amer 38 mL/min (>60); Globulin 4.4 g/dL (2.2-4.2); Potassium 3.3 mmol/L (3.5-5.1); Protein, Total 6.8 g/dL (6.4-8.2); Sodium Level 143 mmol/L (136-145)
[2021-08-25 16:49] LABS: Lactic Acid 4.7 mmol/L (0.4-1.9)
[2021-08-25 16:53] LABS: Anisocytosis RARE; Platelet Estimate ADEQUATE (ADEQ); Red Cell Morphology N CHROM NORMAL (NORM C&C)
[2021-08-25 16:54] LABS: Macrocytosis RARE; Ovalocyte RARE
[2021-08-25] MEDS: 0.9% Normal Saline 1,000 ML 1000 ML IV ×4 (17:08→20:20)
--- NOTE | 2021-08-25 19:30 | CASEMGMT ---
OMARI DE SANTIAGO note: RN CM to room to meet with patient for initial transition planning/care coordination assessment. RN CM introduced self and role at [facility]. Patient is alert but appears somewhat slow to respond. Patient wearing high-flow oxygen and BP low. Patient's primary RN at bedside. Mouth appears very dry and patient's speech (short phrases) difficult to understand. Patient able to answer that she is in the hospital. When questioned who she lives with and after a long pause, patient states, My sister lives with me... and my friend Ahmet. Unable to obtain further answers. RN CM asks patient if okay to call sister Brianne listed on demographics to obtain further information and patient answers yes. RN CM placed call to telephone number listed on demographics for sister Brianne Valladares and female voice answers. RN CM introduced self and role at [facility] but female states she is not Brianne. When RN CM asked if Brianne was available, female states, You got the wrong number. No alternate number listed for sister and no other automotive parts person provided. RN CM to room to verify sister's telephone number with patient. Patient attempts to use cellular telephone to confirm sister's number but cell phone has no charge, unable to power on. According to provider note, patient was brought to ER by workers compensation consultant. No telephone number available on chart. RN JONNATHAN placed call to [facility] to request call back from on-call script worker. OMARI Thornton CM
--- NOTE | 2021-08-25 19:34 | HP.PCM_ITS ---
Documented by User: GAY Tobin 08/25/21 19:54 HPI - General General Date of Admission: 08/25/21 Date of Service: 08/25/21 Chief Complaint: Shortness of breath HPI Narrative PERNELL FISHER, is a 61 F who presents with complaints of shortness of breath. Patient symptoms reportedly started approximately 2 weeks ago however patient is unable to clearly answer questions. It is noted that patient's pulse ox is 69% on room air upon arrival to ER. Patient currently on 10 L nasal cannula satting 92 to 94%. Covid PCR completed in ER negative. Patient is unable to contribute her medical history or medications that she is currently on. [facility] Medical History (Updated 08/25/21 @ 19:44 by GAY Tobin) Arthritis Asthma Diabetes Frequent headaches Gastrointestinal problem Heart disease History of back problems Hyperlipidemia IBS (irritable bowel syndrome) Migraines Stroke Home Medications albuterol sulfate 90 mcg/actuation aerosol inhaler 1 puff INHALATION Q6H 06/22/17 [History Last Taken 09/08/20] amantadine HCl 100 mg capsule 100 mg PO BID 06/22/17 [History Last Taken 09/08/20] fludrocortisone 0.1 mg tablet 0.1 mg PO QDAY 06/22/17 [History Last Taken 09/08/20] hyoscyamine sulfate 0.375 mg tablet,extended release,12 hr 0.375 mg PO BID 06/22/17 [History Last Taken 09/08/20] lorazepam 0.5 mg tablet 0.5 mg PO BID PRN PRN 06/22/17 [History Last Taken 09/08/20] lovastatin 20 mg tablet 20 mg PO QDAY 06/22/17 [History Last Taken 09/08/20] melatonin 10 mg capsule 10 mg PO HS PRN 06/22/17 [History Last Taken 09/08/20] metformin 500 mg tablet 500 mg PO DAILY 06/22/17 [History Last Taken 09/08/20] metoprolol tartrate 25 mg tablet 25 mg PO BID 06/22/17 [History Last Taken 09/08] nitroglycerin 0.4 mg sublingual tablet 0.4 mg SUBLINGUAL Q5M PRN 06/22/17 [History Last Taken 09/08/20] omeprazole 40 mg capsule,delayed release 40 mg PO QDAY 06/22/17 [History Last Taken 09/08/20] quetiapine 200 mg tablet 200 mg PO BID 06/22/17 [History Last Taken 09/08/20] spironolactone 25 mg tablet 25 mg PO QDAY 06/22/17 [History Last Taken 09/08/20] trazodone 100 mg tablet 200 mg PO QHS PRN 06/22/17 [History Last Taken 09/08/20] mirabegron 25 mg PO DAILY 08/19/20 [History Last Taken 09/08/20] citalopram [Celexa] 10 mg PO DAILY 08/25/21 [History Last Taken Unknown] rizatriptan 10 mg PO DAILY 08/25/21 [History Last Taken Unknown] topiramate [Topamax] 25 mg PO BID 08/25/21 [History Last Taken Unknown] Allergy/AdvReac Type Severity Reaction Status Date / Time Penicillins Allergy Intermediate Hives Verified 08/25/21 15:44 carbamazepine [From Tegretol] AdvReac Intermediate Nausea Verified 08/25/21 15:44 benztropine AdvReac Unknown Verified 08/25/21 15:44 diazepam [From Valium] AdvReac Other Verified 08/25/21 15:44 Sulfa (Sulfonamide AdvReac Nausea Verified 08/25/21 15:44 Antibiotics) thioridazine AdvReac Nausea Verified 08/25/21 15:44 thioridazine HCl AdvReac Other Verified 08/25/21 15:44 [From Mellaril] Family History Grandmother Cancer stomach Father Cancer lung Sister Breast cancer Surgical History H/O dilation and curettage H/O hand surgery H/O shoulder surgery History of elbow surgery History of tonsillectomy Hx of cholecystectomy Social History household members: family housing: other details: Mobile home Smoking Status: Current every day smoker tobacco type: cigarettes alcohol intake: never substance use type: does not use caffeine: Yes what type of physical activity do you participate in: walking seatbelt use: always do you feel safe at home: Yes ROS Review of Systems ROS Unobtainable: due to mental status Vital Signs Vital Signs Vital Signs: 08/25/21 15:44 08/25/21 15:49 08/25/21 16:22 Temperature 99.9 F H Temperature Source Temporal Pulse Rate 110 H 94 Respiratory Rate 22 H 20 H Respiratory Effort Blood Pressure 151/135 H 82/51 L Blood Pressure Mean 140 61 Pulse Ox 69 90 93 Oxygen Delivery Method Room Air Nasal Cannula Nasal Cannula Oxygen Flow Rate (L/min) 6 8 08/25/21 16:23 08/25/21 16:49 08/25/21 17:49 Temperature 98 F 98 F Temperature Source Temporal Temporal Pulse Rate 90 84 Respiratory Rate 20 H 20 H Respiratory Effort Short of Breath Labored Blood Pressure 105/64 102/57 L Blood Pressure Mean 77 72 Pulse Ox 92 93 Oxygen Delivery Method Nasal Cannula Oxygen Flow Rate (L/min) 08/25/21 18:00 08/25/21 19:02 08/25/21 19:15 Temperature 98 F 97.8 F Temperature Source Temporal Oral Pulse Rate 82 92 91 Respiratory Rate 20 H 22 H 20 H Respiratory Effort Blood Pressure 102/57 L 93/76 93/76 Blood Pressure Mean 72 81 81 Pulse Ox 93 92 94 Oxygen Delivery Method Nasal Cannula Nasal Cannula High Flow Oxygen Flow Rate (L/min) 10 6 08/25/21 19:33 Temperature Temperature Source Pulse Rate Respiratory Rate Respiratory Effort Blood Pressure 101/69 Blood Pressure Mean 79 Pulse Ox Oxygen Delivery Method Oxygen Flow Rate (L/min) Weight Weight: 300 lb Body Mass Index (BMI) 51.5 Physical Exam Const alert General Appearance: cooperative Orientation / Consciousness: confused HEENT normocephalic and head/scalp atraumatic Eyes conjunctivae normal and no scleral icterus Neck supple General: trachea midline Lymph Lymphatic: no lymphadenopathy noted Resp clear to auscultation bilaterally Auscultation: wheezes expiratory wheezes, anterior, posterior and throughout Cardio regular rate, regular rhythm, S1 normal heart sound and S2 normal heart sound GI normal to inspection, nondistended, normoactive bowel sounds, soft to palpation and non-tender Extremity normal capillary refill and no clubbing, cyanosis or edema General Extremity: no tenderness to palpation of joints or extremities Skin General Skin Exam: turgor normal Neuro no focal motor deficits and no sensory deficits noted Sensorium / Orientation: orientation impaired and confused Psych Appearance: unkempt Attitude: bizarre Activity / Motor Behavior: restless Results Lab / Micro Data Result Diagrams: 08/25/21 16:00 08/25/21 16:00 Labs: Laboratory Results - last 24 hr 08/25/21 16:00: WBC 10.7, RBC 4.47, Hgb 14.2, Hct 42.6, MCV 95.3, MCH 31.8, MCHC 33.3, RDW Std Deviation 49.8 H, RDW Coeff of Robert 14.0, Plt Count 341, MPV 9.8, Immature Gran % (Auto) 1.700 H, Neut % (Auto) 80.2 H, Lymph % (Auto) 15.3 L, Dunn % (Auto) 2.4, Eos % (Auto) 0.0, Baso % (Auto) 0.4, Absolute Neuts (auto) 8.6 H, Absolute Lymphs (auto) 1.64, Nucleated RBC % 2.1, Platelet Estimate ADEQUATE, RBC Morphology N CHROM, Anisocytosis RARE, Macrocytosis RARE, Ovalocytes RARE 08/25/21 16:00: PT 14.0, INR 1.1, APTT 29.2 08/25/21 16:00: Sodium 143, Potassium 3.3 L, Chloride 107, Carbon Dioxide 27.0, Anion Gap 9, BUN 25 H, Creatinine 1.76 H, Estim Creat Clear Calc 29.72, Est GFR (MDRD) Af Amer 38 L, Est GFR (MDRD) Non-Af 31 L, BUN/Creatinine Ratio 14.2, Glucose 103, Calcium 9.0, Total Bilirubin 1.10 H, AST 101 H, ALT 57 H, Alkaline Phosphatase 189 H, Total Protein 6.8, Albumin 2.4 L, Globulin 4.4 H, Albumin/Globulin Ratio 0.5 L 08/25/21 16:00: Lactic Acid 4.7 H* 08/25/21 16:20: COVID-19 (GERARDO) Not Detected ABG Data ABG results: ABG 08/25/21 16:33 Specimen Type TYRON VBG pH 7.42 VBG pO2 26 VBG HCO3 29 H VBG Total CO2 31 VBG O2 Sat (Calc) 49 L VBG Base Excess 5 H POC Mix VBG pCO2 Pt Tmp 45.0 O2 Delivery Device Cannula Liter Flow 8.0 Radiology Impression Chest X-Ray 08/25/21 16:25 IMPRESSION: Multilobar pulmonary infiltrates suggesting pneumonia. Electronically Signed: Dwain Yost MD ([place]) at 16:43 EST , Assessment & Plan Assessment/Plan (1) Acute respiratory failure with hypoxia: (2) Bilateral interstitial pneumonia: (3) Acute on chronic renal insufficiency: (4) Hypokalemia: (5) Acidosis, lactic: (6) Elevated liver enzymes: PLAN: 1. Acute hypoxic respiratory failure secondary to bilateral interstitial pneumonia -Admit to ICU for continuous cardiac and pulse ox monitoring -Patient received levofloxacin in ER, ceftriaxone and azithromycin ordered -Scheduled duonebs with as needed albuterol nebulizer treatments ordered -IV Solu-Medrol ordered -Covid PCR negative, respiratory panel ordered along with Legionella and strep urine antigens, procalcitonin, BNP, mag -CBC and CMP ordered daily -Sputum culture ordered -Encourage incentive spirometry -Consult pulmonary medicine -MRSA PCR ordered -Oxygen per protocol, patient currently on 10 L nasal cannula 2. Acute on chronic renal insufficiency -Baseline creatinine approximately 1.2-1.3, currently 1.76 -Normal saline 100 mL/h -Daily CMP ordered -We will hold spironolactone, Metformin -Repeat lactic acid ordered per protocol -Patient received 3 L bolus in ER 5. Elevated liver enzymes -Elevated from previous lab 07/01/2020 -Daily CMP ordered 6. Diabetes mellitus type 2 -Hold Metformin at this time -ACH S blood sugars with sliding scale insulin ordered -Consistent carb controlled diet 7. Hypotension -Patient currently hypotension, continue Florinef -Vital signs per protocol, currently no hypotension 8. Bipolar disorder -Continue amantadine, Celexa, hyoscyamine, Topamax -We will hold trazodone, Seroquel, melatonin due to patient's altered mental status upon presentation DVT prophylaxis-SCDs, subcu heparin This patient was seen by Mone Dupont NP-Raúl under the supervision of Dr. Vela 35 minutes spent in clinical coordination of patient's plan of care. - Documented by User: Dr. Lauren Vela MD 08/26/21 00:26 HPI - General General Date of Admission: 08/25/21 [facility] Medical History (Updated 08/25/21 @ 19:44 by Mone Dupont NP-C) Arthritis Asthma Diabetes Frequent headaches Gastrointestinal problem Heart disease History of back problems Hyperlipidemia IBS (irritable bowel syndrome) Migraines Stroke Home Medications albuterol sulfate 90 mcg/actuation aerosol inhaler 1 puff INHALATION Q6H 06/22/17 [History Last Taken 09/08/20] amantadine HCl 100 mg capsule 100 mg PO BID 06/22/17 [History Last Taken 09/08/20] fludrocortisone 0.1 mg tablet 0.1 mg PO QDAY 06/22/17 [History Last Taken 09/08/20] hyoscyamine sulfate 0.375 mg tablet,extended release,12 hr 0.375 mg PO BID 06/22/17 [History Last Taken 09/08/20] lorazepam 0.5 mg tablet 0.5 mg PO BID PRN PRN 06/22/17 [History Last Taken 09/08/20] lovastatin 20 mg tablet 20 mg PO QDAY 06/22/17 [History Last Taken 09/08/20] melatonin 10 mg capsule 10 mg PO HS PRN 06/22/17 [History Last Taken 09/08/20] metformin 500 mg tablet 500 mg PO DAILY 06/22/17 [History Last Taken 09/08/20] metoprolol tartrate 25 mg tablet 25 mg PO BID 06/22/17 [History Last Taken 09/08/20] nitroglycerin 0.4 mg sublingual tablet 0.4 mg SUBLINGUAL Q5M PRN 06/22/17 [History Last Taken 09/08/20] omeprazole 40 mg capsule,delayed release 40 mg PO QDAY 06/22/17 [History Last Taken 09/08/20] quetiapine 200 mg tablet 200 mg PO BID 06/22/17 [History Last Taken 09/08/20] spironolactone 25 mg tablet 25 mg PO QDAY 06/22/17 [History Last Taken 09/08/20] trazodone 100 mg tablet 200 mg PO QHS PRN 06/22/17 [History Last Taken 09/08/20] mirabegron 25 mg PO DAILY 08/19/20 [History Last Taken 09/08/20] citalopram [Celexa] 10 mg PO DAILY 08/25/21 [History Last Taken Unknown] rizatriptan 10 mg PO DAILY 08/25/21 [History Last Taken Unknown] topiramate [Topamax] 25 mg PO BID 08/25/21 [History Last Taken Unknown] Allergy/AdvReac Type Severity Reaction Status Date / Time Penicillins Allergy Intermediate Hives Verified 08/25/21 15:44 carbamazepine [From Tegretol] AdvReac Intermediate Nausea Verified 08/25/21 15:44 benztropine AdvReac Unknown Verified 08/25/21 15:44 diazepam [From Valium] AdvReac Other Verified 08/25/21 15:44 Sulfa (Sulfonamide AdvReac Nausea Verified 08/25/21 15:44 Antibiotics) thioridazine AdvReac Nausea Verified 08/25/21 15:44 thioridazine HCl AdvReac Other Verified 08/25/21 15:44 [From Mellaril] Family History Grandmother Cancer stomach Father Cancer lung Sister Breast cancer Surgical History H/O dilation and curettage H/O hand surgery H/O shoulder surgery History of elbow surgery History of tonsillectomy Hx of cholecystectomy Social History household members: family housing: other details: Mobile home Smoking Status: Current every day smoker tobacco type: cigarettes alcohol intake: never substance use type: does not use caffeine: Yes what type of physical activity do you participate in: walking seatbelt use: always do you feel safe at home: Yes Results Lab / Micro Data Result Diagrams: 08/25/21 16:00 08/25/21 16:00
[2021-08-25 20:09] LABS: Reflex Lactate? Y
--- NOTE | 2021-08-25 20:55 | CASEMGMT ---
Addendum entered by Kira Moran 08/25/21 21:03: 2100- Attempt to contact Brianne Valladares using telephone number provided by [facility] tree and shrub worker with no answer. Original Note: OMARI DE SANTIAGO note: Call back received from on-call tree and shrub worker Olivia Nam. Per Olivia, patient was not brought to ER by tree and shrub worker from the [facility] today. Telephone number provided for Brianne Valladares (listed as a friend per [facility] records) is [phone]. Olivia reports patient has history of schizoaffective disorder and anxiety, most recently evaluated on 07/27/21. Patient's counter caser at [facility] is Nicolasa Alaniz. [facility] will fax current medication list to this RN CM. -OMARI Navarro CM
--- NOTE | 2021-08-25 21:10 | CASEMGMT ---
RN JONNATHAN note: Recent medication list received per fax from [facility] and handed to ICU nurse Elsie at bedside. OMARI Thornton CM
[2021-08-25] MEDS: 0.9% Normal Saline 1,000 ML 100 ML IV (21:20)
[2021-08-25] MEDS: MethylPREDNISolone 125 MG/2 ML Vial IV (21:45)
[2021-08-25 22:00] LABS: BNP,B-Type NATRIURETIC PEPTIDE 124.5 pg/mL (0-100)
[2021-08-25 22:09] LABS: Lactic Acid 1.3 mmol/L (0.4-1.9); Procalcitonin 0.15 ng/mL (0.00-0.09)
[2021-08-25] MEDS: Heparin Injection (Vial) 5,000 UNIT/ML VIAL 5000 UNIT SC (22:39)
[2021-08-25] MEDS: Potassium Chloride Oral Tablet 20 MEQ 40 MEQ PO (22:42)
[2021-08-25] MEDS: Topiramate 25 MG Tablet PO (22:42)
[2021-08-25] MEDS: Amantadine 100 MG Capsule PO (22:43)
[2021-08-25] MEDS: Ipratropium/Albuterol Sulfate 3 ML AMPUL.NEB INHALATION (22:51)
[2021-08-25 23:06] LABS: Bedside Glucose 92 mg/dL (70-110)
[2021-08-25 23:17] LABS: Mucous, Urine 0 SEEN /hpf (<or=2+); Red Blood Cells-Urine 0 SEEN /hpf (0-5); Squamous Epithelial Cells - UA 0 SEEN /hpf (5-10)
[2021-08-25 23:19] LABS: Color, Urine Yellow (Yellow); Glucose, Dipstick Normal (Normal); Ketone-Dipstick Negative (Negative); Leukocyte Esterase-Dipstick Negative /ul (Negative); Nitrite-Dipstick Positive (Negative); Occult Blood-Urine 10 /ul (Negative); Protein-Dipstick 15 mg/dl (Negative); Urine Bilirubin Dipstick Negative (Negative); Urine Clarity Clear (Clear); Urine Urobilinogen 1 mg/dl (Normal)
[2021-08-25 23:28] LABS: Bacteria 3+ /hpf (None Seen); White Blood Cells 0-5 SEEN /hpf (0-5)
[2021-08-26] VITALS (31 sets, daily range): BP systolic 103–128; BP diastolic 57–102; PULSE 90–147; RESP 12–30; TEMP 36.3–37.2; O2SAT 88–98
[2021-08-26 00:10] LABS: M R Staph aureus DNA By PCR Negative (Negative); Probe Check PASS; Specimen Processing Control PASS
[2021-08-26] MEDS: 0.9% Saline Lock 10 ML Syringe IV ×2 (05:22→21:21)
[2021-08-26] MEDS: Heparin Injection (Vial) 5,000 UNIT/ML VIAL 5000 UNIT SC ×3 (05:23→21:21)
[2021-08-26 05:25] LABS: Absolute Lymphocyte Count 0.67 X10^3/uL (0.83-4.51); Absolute Neutrophil Count 7.9 X10^3/uL (2.0-7.7); Basophil# 0.01 X10^3/uL; Basophil% 0.1 % (0-1); Hematocrit 36.9 % (37-47); Hemoglobin 11.7 g/dL (12.0-15.0); Lymphocyte # 0.67 X10^3/ul (0.83-4.51); Lymphocyte % 7.6 % (19-41); Mean Corp Hgb Conc 31.7 g/dL (32-36); Mean Corpuscular Volume 97.9 fL (81-99); Mean Platelet Vol. 9.8 fl (6.2-12.0); Monocyte# 0.13 X10^3/uL; Monocyte% 1.5 % (0-10); NRBC Flagged by Analyzer 1.7 % (0-5); Neutrophil # 7.93 X10^3/uL (2.7-7.7); Neutrophil % 89.7 % (47-70); POSITIVE MORPHOLOGY YES; Platelet Count 270 K/mm3 (150-450); RBC Distribution Width CV 14.2 % (11.6-14.6); RBC Distribution Width SD 51.3 fl (35.1-43.9); Red Blood Count 3.77 M/mm3 (4.2-5.4); White Blood Count 8.8 K/mm3 (4.4-11.0)
[2021-08-26 05:27] LABS: Differential Indicated SCAN CRITERIA MET
[2021-08-26 05:49] LABS: Atypical Lymphocyte 1+ %
--- NOTE | 2021-08-26 06:21 | CON.PCM.CC_ITS ---
Assessment & Plan Assessment/Plan (1) Sepsis: PLAN: RECOMMENDATIONS: 1. Wean supplemental oxygen to maintain saturations at or above 90%. 2. Recommend empiric use of BiPAP therapy with naps and nightly. 3. Continue empiric antimicrobials. 4. Continue scheduled bronchodilators and IV steroids. 5. Check D-dimer. 6. Await results of blood and urine cultures. 7. Continue appropriate DVT prophylaxis. IMPRESSIONS: 1. Sepsis Sepsis due to suspected pneumonia with acute sepsis related organ dysfunction as evidenced by acute respiratory failure necessitating noninvasive positive pressure ventilatory support, acute kidney injury and lactic acidemia. The patient does have an extensive smoking history and likely has an underlying unknown of obstructive lung disease. For now, it is reasonable to continue antimicrobials along with scheduled bronchodilators and steroids. Plan to continue to wean supplemental oxygen to maintain saturations at or above 90%. Encourage incentive spirometer use and mobilize patient as tolerated. 2. Acute on chronic kidney disease Likely prerenal in etiology and related to #1. Anticipate improvement with volume expansion. Continue to monitor urine output. No current indication for renal replacement therapy. 3. Chronic tobacco dependency/questionable obstructive lung disease I personally spent 3 minutes discussing the deleterious effects of continued tobacco use with the patient, including modalities which can be utilized to achieve a smoke-free lifestyle. Nicotine replacement therapy can be offered to the patient while admitted to the hospital. The patient will be continued on supplemental oxygen along with scheduled bronchodilators and steroids. 4. Morbid obesity/hypertension/hyperlipidemia/diabetes mellitus/GERD/bipolar disorder Complicates care, management, recovery and prognosis. Continue home medications as indicated. This note was generated with [employer] dictation software. It may contain incorrect words, spelling, and punctuation that were not noted in checking the note before signing. HPI Consult Data Date of Consult: 08/27/21 HPI Narrative Reason for Consultation: Respiratory failure HPI Narrative: The patient is a 61-year-old female, with a history as outlined below, who presented to the emergency department on August 25 with progressive shortness of breath and hypoxemia. The patient has a number of comorbid medical conditions including tobacco dependency, questionable COPD, diabetes mellitus, bipolar disorder and questionable prior CVA. On presentation to the emergency department, the patient was noted to have a l ow-grade fever but was otherwise hemodynamically stable. She was notably hypoxemic on room air. Initial laboratory evaluation demonstrated no evidence of a leukocytosis. Coagulation profile was within normal limits. Chemistry profile was notable for a potassium of 3.3 and creatinine of 1.76. Lactate was elevated to 4.7. Total bili was increased at 1.1 with an AST of 101, ALT of 57 and alkaline phosphatase of 189. Procalcitonin was noted to be 0.15. Urine analysis was positive for nitrites and 3+ urine bacteria. Covid PCR was negative. MRSA screen was negative. Chest x-ray demonstrated bilateral airspace infiltrates. The patient did ultimately become hypotensive in the emergency department, for which she received fluid resuscitation. She was also started on BiPAP. Overnight, the patient was stable from a clinical perspective. She never had to be initiated on vasopressor support. She was able to be weaned to 12 L/min high flow cannula this morning. [facility] Medical History (Updated 08/26/21 @ 06:[address] Dallin Christopher, ) Arthritis Asthma Diabetes Frequent headaches Gastrointestinal problem Heart disease History of back problems Hyperlipidemia IBS (irritable bowel syndrome) Migraines Stroke Home Medications albuterol sulfate 90 mcg/actuation aerosol inhaler 1 puff INHALATION Q6H 06/22/17 [History Last Taken 09/08/20] amantadine HCl 100 mg capsule 100 mg PO BID 06/22/17 [History Last Taken 09/08/20] fludrocortisone 0.1 mg tablet 0.1 mg PO QDAY 06/22/17 [History Last Taken 09/08/20] hyoscyamine sulfate 0.375 mg tablet,extended release,12 hr 0.375 mg PO BID [History Last Taken 09/08/20] lorazepam 0.5 mg tablet 0.5 mg PO BID PRN PRN 06/22/17 [History Last Taken 09/08/20] lovastatin 20 mg tablet 20 mg PO QDAY 06/22/17 [History Last Taken 09/08/20] melatonin 10 mg capsule 10 mg PO HS PRN 06/22/17 [History Last Taken 09/08/20] metformin 500 mg tablet 500 mg PO DAILY 06/22/17 [History Last Taken 09/08/20] metoprolol tartrate 25 mg tablet 25 mg PO BID 06/22/17 [History Last Taken 09/08/20] nitroglycerin 0.4 mg sublingual tablet 0.4 mg SUBLINGUAL Q5M PRN 06/22/17 [History Last Taken 09/08/20] omeprazole 40 mg capsule,delayed release 40 mg PO QDAY 06/22/17 [History Last Taken 09/08/20] quetiapine 200 mg tablet 200 mg PO BID 06/22/17 [History Last Taken 09/08/20] spironolactone 25 mg tablet 25 mg PO QDAY 06/22/17 [History Last Taken 09/08/20] trazodone 100 mg tablet 200 mg PO QHS PRN 06/22/17 [History Last Taken 09/08/20] mirabegron 25 mg PO DAILY 08/19/20 [History Last Taken 09/08/20] citalopram [Celexa] 10 mg PO DAILY 08/25/21 [History Last Taken Unknown] rizatriptan 10 mg PO DAILY 08/25/21 [History Last Taken Unknown] topiramate [Topamax] 25 mg PO BID 08/25/21 [History Last Taken Unknown] Allergy/AdvReac Type Severity Reaction Status Date / Time Penicillins Allergy Intermediate Hives Verified 08/25/21 15:44 carbamazepine [From Tegretol] AdvReac Intermediate Nausea Verified 08/25/21 15:44 benztropine AdvReac Unknown Verified 08/25/21 15:44 diazepam [From Valium] AdvReac Other Verified 08/25/21 15:44 Sulfa (Sulfonamide AdvReac Nausea Verified 08/25/21 15:44 Antibiotics) thioridazine AdvReac Nausea Verified 08/25/21 15:44 thioridazine HCl AdvReac Other Verified 08/25/21 15:44 [From Mellaril] Family History Grandmother Cancer stomach Father Cancer lung Sister Breast cancer Surgical History H/O dilation and curettage H/O hand surgery H/O shoulder surgery History of elbow surgery History of tonsillectomy Hx of cholecystectomy Social History household members: family housing: other details: Mobile home Smoking Status: Current every day smoker tobacco type: cigarettes alcohol intake: never substance use type: does not use caffeine: Yes what type of physical activity do you participate in: walking seatbelt use: always do you feel safe at home: Yes ROS Constitutional Constitutional: Denies body ache(s), fatigue or fever(s) Eyes Eyes: Denies blurry vision or change in vision ENT HEENT: Denies headache(s), loss taste/smell or nasal congestion Cardiovascular Cardiovascular: Denies chest pain or lightheadedness Respiratory/Chest Respiratory/Chest: Reports cough and dyspnea Gastrointestinal Gastrointestinal: Reports dyspepsia Genitourinary Genitourinary: Denies difficulty urinating or dysuria Musculoskeletal Musculoskeletal: Denies arthralgias, back pain or joint pain Integumentary Integumentary: Denies lesions, rash or skin ulcer Neurologic Neurologic: Denies abnormal gait or abnormal speech Psychiatric Psychiatric: Reports anxiety and depression Endocrine Endocrinology: Reports fatigue Hematologic/Lymphatic Hematologic/Lymphatic: Denies easy bleeding or easy bruising Physical Exam Const alert and no apparent distress General Appearance: cooperative Orientation / Consciousness: confused Nutritional Appearance: morbidly obese HEENT normocephalic and head/scalp atraumatic Eyes PERRL, EOMs intact bilaterally and conjunctivae normal Neck supple General: trachea midline Resp Effort and Inspection: tachypneic Auscultation: diminished lung sounds; Negative for rales, rhonchi or wheezes Cardio S1 normal heart sound and S2 normal heart sound Rate: tachycardic GI normal to inspection, nondistended, normoactive bowel sounds Extremity General Extremity: edema bilateral lower extremity Skin no rashes or lesions noted Neuro CN's II-XII intact bilaterally and no focal motor deficits Psych Mood & Affect: flat affect Lab / Micro Data Result Diagrams: 08/27/21 05:20 08/27/21 05:20 Labs: Laboratory Results - last 24 hr 08/25/21 16:00: WBC 10.7, RBC 4.47, Hgb 14.2, Hct 42.6, MCV 95.3, MCH 31.8, MCHC 33.3, RDW Std Deviation 49.8 H, RDW Coeff of Robert 14.0, Plt Count 341, MPV 9.8, Immature Gran % (Auto) 1.700 H, Neut % (Auto) 80.2 H, Lymph % (Auto) 15.3 L, [place] % (Auto) 2.4, Eos % (Auto) 0.0, Baso % (Auto) 0.4, Absolute Neuts (auto) 8. 6 H, Absolute Lymphs (auto) 1.64, Nucleated RBC % 2.1, Platelet Estimate ADEQUATE, RBC Morphology N CHROM, Anisocytosis RARE, Macrocytosis RARE, Ovalocytes RARE 08/25/21 16:00: PT 14.0, INR 1.1, APTT 29.2 08/25/21 16:00: Sodium 143, Potassium 3.3 L, Chloride 107, Carbon Dioxide 27.0, Anion Gap 9, BUN 25 H, Creatinine 1.76 H, Estim Creat Clear Calc 29.72, Est GFR (MDRD) Af Amer 38 L, Est GFR (MDRD) Non-Af 31 L, BUN/Creatinine Ratio 14.2, Glucose 103, Calcium 9.0, Total Bilirubin 1.10 H, AST 101 H, ALT 57 H, Alkaline Phosphatase 189 H, Total Protein 6.8, Albumin 2.4 L, Globulin 4.4 H, Albumin/Globulin Ratio 0.5 L 08/25/21 16:00: Lactic Acid 4.7 H* 08/25/21 16:20: COVID-19 ([place]ARD[place]) Not Detected 08/25/21 21:20: B-Natriuretic Peptide 124.5 H 08/25/21 21:20: Procalcitonin 0.15 H 08/25/21 21:20: Lactic Acid 1.3 08/25/21 22:38: MRSA (PCR) Negative 08/25/21 22:48: POC Glucose 92 08/25/21 23:00: Urine Color Yellow, Urine Clarity Clear, Urine pH 6.0, Ur Specific [place] 1.010, Urine Protein 15 H, Urine Glucose (UA) Normal, Urine Ketones Negative, Urine Occult Blood 10 H, Urine Nitrite Positive H, Urine Bilirubin Negative, Urine Urobilinogen 1 H, Ur Leukocyte Esterase Negative, Urine RBC 0 SEEN, Urine WBC 0-5 SEEN, Ur Squamous Epith Cells 0 SEEN, Urine Bacteria 3+, Urine Mucus 0 SEEN 08/26/21 05:15: WBC 8.8, RBC 3.77 L, Hgb 11.7 L, Hct 36.9 L, MCV 97.9, MCH 31.0, MCHC 31.7 L, RDW Std Deviation 51.3 H, RDW Coeff of Robert 14.2, Plt Count 270, MPV 9.8, Immature Gran % (Auto) 1.100 H, Neut % (Auto) 89.7 H, Lymph % (Auto) 7.6 L, [place] % (Auto) 1.5, Eos % (Auto) 0.0, Baso % (Auto) 0.1, Absolute Neuts (auto) 7.9 H, Absolute Lymphs (auto) 0.67 L, Nucleated RBC % 1.7, Atypical Lymphocytes 1+ Micro: Microbiology 08/25/21 Unknown Mucosa - Nasopharyngeal Respiratory Panel (PCR) - Final 08/25/21 23:00 Urine Catheter - Catheter Legionella Antigen - Final 08/25/21 23:00 Urine Catheter - Catheter Streptococcus pneumoniae Antigen (M - Final ABG Data ABG results: ABG 08/25/21 16:33 Specimen Type TYRON VBG pH 7.42 VBG pO2 26 VBG HCO3 29 H VBG Total CO2 31 VBG O2 Sat (Calc) 49 L VBG Base Excess 5 H POC Mix VBG pCO2 Pt Tmp 45.0 O2 Delivery Device Cannula Liter Flow 8.0 Radiology Impression Chest X-Ray 08/25/21 16:25 IMPRESSION: Multilobar pulmonary infiltrates suggesting pneumonia. Electronically Signed: Dwain Yost MD (Brooks) at 16:43 EST Reading Location ID and State: [facility] / [place] , Service support , Charges/Coding Visit Charges Inpatient E&M: 43123 Init Hosp L3 Behavior Interventions Behavior Intervention: 63288 Smoking Cessation 3-10 min
[2021-08-26 06:30] LABS: ALB/GLOB Ratio 0.5 RATIO (0.9-2.4); AST(SGOT) 75 U/L (15-37); Alanine Aminotransfer ALT/SGPT 42 U/L (13-56); Albumin, Serum 1.7 g/dL (3.2-5.0); Alkaline Phosphatase 73 U/L (45-117); Anion Gap 4 (5-15); BUN 17 mg/dL (7-18); Calcium,Total 7.4 mg/dL (8.5-10.1); Chloride 117 mmol/L (98-107); EST Glomerular Filtration Rate 60 mL/min (>60); Est Glom Filt Rate - Afr Amer 73 mL/min (>60); Estimated Creatinine Clearance 50.11 ml/min; Globulin 3.7 g/dL (2.2-4.2); Glucose 101 mg/dL (74-106); Potassium 3.6 mmol/L (3.5-5.1); Protein, Total 5.4 g/dL (6.4-8.2); Sodium Level 147 mmol/L (136-145)
[2021-08-26] MEDS: Ipratropium/Albuterol Sulfate 3 ML AMPUL.NEB INHALATION ×4 (07:05→19:22)
--- NOTE | 2021-08-26 07:11 | CPS ---
Bumped flow up to 14L, SaO2 was around 88
--- NOTE | 2021-08-26 09:36 | PN.HOSP_ITS ---
Subjective Subjective Patient seen and examined. She is quite confused and lethargic, and is unable to give any history or do review of systems. Review of systems is otherwise negative. She is on 13L of oxygen. She is a bit tachycardic and tachypneic. Objective Data Objective Data Vital Signs: Vital Signs Temp Pulse Resp BP Pulse Ox 98 F 109 H 24 H 123/71 H 88 08/26/21 04:00 08/26/21 08:00 08/26/21 07:06 08/26/21 06:00 08/26/21 07:06 Oxygen Flow Rate (L/min) 14 Oxygen Delivery Method High Flow Weight: 249 lb 9.012 oz Body Mass Index (BMI) 43.7 Intake & Output: Intake and Output for Last 24 Hours 08/24/21 08/25/21 08/26/21 23:59 23:59 23:59 Intake Total 4295 / 4295 1105 / 1105 Output Total 390 / 390 Balance 3905 / 3905 1105 / 1105 Lab / Micro Data Result Diagrams: 08/26/21 05:15 08/26/21 05:15 Labs: Laboratory Results - last 24 hr 08/25/21 16:00: WBC 10.7, RBC 4.47, Hgb 14.2, Hct 42.6, MCV 95.3, MCH 31.8, MCHC 33.3, RDW Std Deviation 49.8 H, RDW Coeff of Robert 14.0, Plt Count 341, MPV 9.8, Immature Gran % (Auto) 1.700 H, Neut % (Auto) 80.2 H, Lymph % (Auto) 15.3 L, [place] % (Auto) 2.4, Eos % (Auto) 0.0, Baso % (Auto) 0.4, Absolute Neuts (auto) 8.6 H, Absolute Lymphs (auto) 1.64, Nucleated RBC % 2.1, Platelet Estimate ADEQUATE, RBC Morphology N CHROM, Anisocytosis RARE, Macrocytosis RARE, Ovalocytes RARE 08/25/21 16:00: PT 14.0, INR 1.1, APTT 29.2 08/25/21 16:00: Sodium 143, Potassium 3.3 L, Chloride 107, Carbon Dioxide 27.0, Anion Gap 9, BUN 25 H, Creatinine 1.76 H, Estim Creat Clear Calc 29.72, Est GFR (MDRD) Af Amer 38 L, Est GFR (MDRD) Non-Af 31 L, BUN/Creatinine Ratio 14.2, Glucose 103, Calcium 9.0, Total Bilirubin 1.10 H, AST 101 H, ALT 57 H, Alkaline Phosphatase 189 H, Total Protein 6.8, Albumin 2.4 L, Globulin 4.4 H, Albumin/Globulin Ratio 0.5 L 08/25/21 16:00: Lactic Acid 4.7 H* 08/25/21 16:20: COVID-19 ([place]) Not Detected 08/25/21 21:20: B-Natriuretic Peptide 124.5 H 08/25/21 21:20: Procalcitonin 0.15 H 08/25/21 21:20: Lactic Acid 1.3 08/25/21 22:38: MRSA (PCR) Negative 08/25/21 22:48: POC Glucose 92 08/25/21 23:00: Urine Color Yellow, Urine Clarity Clear, Urine pH 6.0, Ur Specific [place] 1.010, Urine Protein 15 H, Urine Glucose (UA) Normal, Urine Ketones Negative, Urine Occult Blood 10 H, Urine Nitrite Positive H, Urine Bilirubin Negative, Urine Urobilinogen 1 H, Ur Leukocyte Esterase Negative, Urine RBC 0 SEEN, Urine WBC 0-5 SEEN, Ur Squamous Epith Cells 0 SEEN, Urine Bacteria 3+, Urine Mucus 0 SEEN 08/26/21 05:15: WBC 8.8, RBC 3.77 L, Hgb 11.7 L, Hct 36.9 L, MCV 97.9, MCH 31.0, MCHC 31.7 L, RDW Std Deviation 51.3 H, RDW Coeff of Robert 14.2, Plt Count 270, MPV 9.8, Immature Gran % (Auto) 1.100 H, Neut % (Auto) 89.7 H, Lymph % (Auto) 7.6 L, [place] % (Auto) 1.5, Eos % (Auto) 0.0, Baso % (Auto) 0.1, Absolute Neuts (auto) 7.9 H, Absolute Lymphs (auto) 0.67 L, Nucleated RBC % 1.7, Atypical Lymphocytes 1+ 08/26/21 05:15: Sodium 147 H, Potassium 3.6, Chloride 117 H, Carbon Dioxide 26.0, Anion Gap 4 L, BUN 17, Creatinine 1.00, Estim Creat Clear Calc 50.11, Est GFR (MDRD) Af Amer 73, Est GFR (MDRD) Non-Af 60, BUN/Creatinine Ratio 17.0, Glu cose 101, Calcium 7.4 L, Total Bilirubin 0.70, AST 75 H, ALT 42, Alkaline Phosphatase 73, Total Protein 5.4 L, Albumin 1.7 L, Globulin 3.7, Albumin/Globulin Ratio 0.5 L Micro: Microbiology 08/25/21 Unknown Mucosa - Nasopharyngeal Respiratory Panel (PCR) - Final 08/25/21 23:00 Urine Catheter - Catheter Legionella Antigen - Final 08/25/21 23:00 Urine Catheter - Catheter Streptococcus pneumoniae Antigen (M - Final ABG Data ABG results: ABG 08/25/21 16:33 Specimen Type TYRON VBG pH 7.42 VBG pO2 26 VBG HCO3 29 H VBG Total CO2 31 VBG O2 Sat (Calc) 49 L VBG Base Excess 5 H POC Mix VBG pCO2 Pt Tmp 45.0 O2 Delivery Device Cannula Liter Flow 8.0 Radiography Diagnostic Testing: Radiology Impression Chest X-Ray 08/25/21 16:25 IMPRESSION: Multilobar pulmonary infiltrates suggesting pneumonia. Electronically Signed: Dwain Yost MD (Brooks) at 16:43 EST Reading Location ID and State: [facility] / [place] , Service support , Physical Exam Const alert Orientation / Consciousness: lethargic Exam Limitations: altered mental status HEENT head/scalp atraumatic Head and Scalp: normocephalic Mouth: dry mucous membranes Eyes PERRL, EOMs intact bilaterally and conjunctivae normal Neck no lymphadenopathy and supple Resp Resp Narrative: tachypneic, coarse crackles bibasally, no wheezes. On 14L of oxygen by nasal canula Cardio regular rhythm, S1 normal heart sound, S2 normal heart sound and no murmurs Cardio Narrative: tachypneic GI normal to inspection, nondistended, normoactive bowel sounds, soft to palpation, non-tender and non-distended Extremity normal to inspection, full ROM and no clubbing, cyanosis or edema Peripheral Pulses: Yes pulses 2+ throughout Skin no rashes or lesions noted Neuro CN's II-XII intact bilaterally and moves all extremities Neuro Narrative: lethargy Sensorium / Orientation: awake Psych Psych Narrative: confused Assessment & Plan Assessment/Plan (1) Acute respiratory failure with hypoxia: (2) Bilateral interstitial pneumonia: PLAN: #Acute hypoxic respiratory failure due to bilateral pneumonia * on 14L of oxygen by nasal canula. weaned off bipap overnight * on IV ceftriaxone and azithromycin. Sputum and blood cultures ordered * on IV solumedrol * critical care on board * titrate oxygen to maintain sats >90% * #Acute metabolic encephalopathy due to bilateral pneumonia and acute hypoxic respiratory failure * Patient still remains very confused. * management as above. PT.OT on board. Fall precautions * #Sepsis due to bilateral pneumonia and UTI * on IV ceftriaxone and azithromycin. * blood and urine cultures pending * covid test was negative * #STEVEN on CKD 3: resolved. Cr is down to 1. Cr was 1.76, with a baseline of 1.2. #Elevated liver enzymes * Have trended downwards. Total bilirubin is down to 0.7 from 1.1 and AST and ALT have also trended downwards and normalized * #Hypernatremia: sodium is 147 today. likely due to IVF administration. IVF discontinued #Hypotension: BP meds on hold. #Lactic acidosis: resolved. #Bipolar disorder and depression: on citalopram and topiramate #Type 2 diabetes mellitus: metformin on hold due to lactic acidosis DVT prophylaxis: heparin Charges/Coding Visit Charges Inpatient E&M: 62407 [facility] Hosp L3
[2021-08-26 09:49] LABS: D-Dimer Quantitative (DVT/PE) 12.66 FEU/ug/m (0.27-0.49)
--- NOTE | 2021-08-26 09:57 | CT_ITS ---
STUDY: CTA CHEST REASON FOR EXAM: Female, 61 years old. Elevated D dimer, Respiratory Failure RADIATION DOSAGE (If Supplied By Facility): CTDIvol = ( 11.46 ) mGy, DLP = ( 519.74 ) mGycm TECHNIQUE: The examination was performed with the intravenous administration of IV 100mL Isovue-370. Post-processing of the angiographic images was performed, with multiplanar reformation and 3D reconstruction. Individualized dose optimization techniques were used for this CT. COMPARISON: Comparison is made with prior chest radiograph dated 08/25/2021. FINDINGS: Normal enhancement of the main pulmonary artery and right and left pulmonary arteries. Normal enhancement of the bilateral peripheral pulmonary arteries. There is no demonstrated pulmonary embolism. There is atherosclerotic calcification of the aortic arch with tortuosity. There is no demonstrated aortic dissection. There are calcifications of the coronary arteries. Normal mediastinum. Normal hilar regions. Normal visualized trachea and bronchi. The lungs are well expanded. There are diffuse bilateral pulmonary infiltrates involving both lungs worse in the upper lobes. Pneumonitis associated with Covid should be ruled out. Normal pleura. Normal chest wall structures. There are degenerative changes of thoracic spine. Normal visualized upper abdomen. CT/CTA Chest W/WO Contrast IMPRESSION: No evidence of pulmonary embolism. Diffuse bilateral pulmonary infiltrates as described. Electronically Signed: Marvel Pierce MD at 11:18 EST ,
--- NOTE | 2021-08-26 10:03 | CASEMGMT ---
Addendum entered by Debra Garrett 08/26/21 14:28: Social Work Second phone call placed to number listed for Brianne Valladares and VM left. Second phone call to [facility] to speak to case supervisor. VM left. Pt home number is not inservice and cell number inbox is full. SW will await return call from Brianne Valladares and [facility]. BILL Siegel Original Note: Social Work SW attended ICU rounds. Staff has been unable to reach patients next of kin. Pt is currently not good historian. Brianne Valladares listed as pt sister. SW placed call to phone number on demographic sheet and person who answered states this is a wrong number. Number removed from demographics. ED RNCM had spoke to dye worker last evening and obtained new number [phone]. SW called this number and left requesting return call. Prior demo sheets of pt had a different number for Brianne, this number called and is disconnected. Phone call to PCP Dr. Bradford's office. No additional contact information. Phone call to [facility] and spoke with corporate receptionist, pt does have a case supervisor but uncertain who as previous CM has resigned. SW left a message for Alvin Easton, Food Preparation Kitchen Aide. Will await return call. BILL Siegel
[2021-08-26] MEDS: Ceftriaxone 1 GM/50 ML BAG IV (12:01)
[2021-08-26] MEDS: Citalopram 10 MG Tablet PO (12:18)
[2021-08-26] MEDS: Fludrocortisone Acetate 0.1 MG Tablet PO (12:18)
[2021-08-26] MEDS: Mirabegron 25 MG TAB.ER.24H PO (12:19)
[2021-08-26] MEDS: Amantadine 100 MG Capsule PO ×2 (12:19→21:20)
[2021-08-26] MEDS: Pantoprazole Sodium 40 MG Tablet PO (12:19)
[2021-08-26] MEDS: Topiramate 25 MG Tablet PO ×2 (12:20→21:21)
[2021-08-26 12:25] LABS: Bedside Glucose 117 mg/dL (70-110)
--- NOTE | 2021-08-26 15:27 | CHAPLAIN ---
Type of Pastoral Visit _x__ Initial Visit ___ Follow-up Visit ___ On-call Visit ___ General Patient Visit ___ Spiritual Assessment ___ Family Conference ___ Bereavement ___ Rapid Response ___ Code Blue ___ Other (describe below) Pastoral Care Referral From _x__ Patient ___ Family ___ Nurse ___ Physician ___ Pharmacists ___ Travel Med Surg Rn ___ Other (describe below) Sacrament/Intervention _x__ Active listening ___ Anointing ___ Baptist ___ Bereavement ___ Communion ___ Kendy exploration ___ ___ Life review _x__ Prayer ___ Reconciliation ___ Sacrament of Sick _x__ Supportive presence ___ Wedding ___ Other (describe below) Pastoral Comments patient is sitting up with lunch tray before her; pt answers questions and does know where she is at this time but is also somewhat slow to continue conversation; pt states that she just wants to get home and that she has a sister and a friend; pt welcomes prayer and also gives an audible prayer; encouraged patient to have a bite to eat or something to drink; pt took sprite can with shaky hands and did drink sips in presence of this warp spinner
--- NOTE | 2021-08-26 16:05 | NURSING ---
Nicolasa Alaniz, current pillowcase folder at [facility], called in and updated. Nicolasa work number is [phone] ext [phone].
--- NOTE | 2021-08-26 16:11 | CPS ---
Pt had a lot of anxiety when placed on airvo, flow decreased for pt comfort.
--- NOTE | 2021-08-26 16:14 | CASEMGMT ---
RN CM NOTE: Per ICU personal secretary, pt's sister, Brianne Valladares, # was retrieved from pt's phone and it is [phone]. This # was listed updated in demographics at this time. Walt KELLEYN RN CM
[2021-08-26 18:25] LABS: Bedside Glucose 149 mg/dL (70-110)
[2021-08-26] MEDS: Insulin Lispro 100 UNIT/ML INSULN.PEN SC (21:21)
[2021-08-26 21:36] LABS: Bedside Glucose 185 mg/dL (70-110)
[2021-08-27] VITALS (35 sets, daily range): BP systolic 95–132; BP diastolic 43–113; PULSE 78–165; RESP 17–33; TEMP 36.6–37.2; O2SAT 90–98
[2021-08-27 05:33] LABS: Absolute Neutrophil Count 17.5 X10^3/uL (2.0-7.7); Basophil# 0.06 X10^3/uL; Basophil% 0.3 % (0-1); Hematocrit 38.7 % (37-47); Hemoglobin 12.7 g/dL (12.0-15.0); Lymphocyte % 6.7 % (19-41); Mean Corp Hgb Conc 32.8 g/dL (32-36); Mean Corpuscular Hgb 31.5 pg (27.0-32.0); Mean Platelet Vol. 10.2 fl (6.2-12.0); Monocyte# 0.29 X10^3/uL; Monocyte% 1.5 % (0-10); NRBC Flagged by Analyzer 0.9 % (0-5); Neutrophil % 90.6 % (47-70); POSITIVE MORPHOLOGY YES; Platelet Count 330 K/mm3 (150-450); RBC Distribution Width CV 14.1 % (11.6-14.6); RBC Distribution Width SD 50.1 fl (35.1-43.9); Red Blood Count 4.03 M/mm3 (4.2-5.4); White Blood Count 19.3 K/mm3 (4.4-11.0)
[2021-08-27 05:47] LABS: Differential Indicated SCAN CRITERIA MET
[2021-08-27 05:53] LABS: ALB/GLOB Ratio 0.5 RATIO (0.9-2.4); AST(SGOT) 67 U/L (15-37); Alanine Aminotransfer ALT/SGPT 43 U/L (13-56); Albumin, Serum 1.9 g/dL (3.2-5.0); Alkaline Phosphatase 97 U/L (45-117); Anion Gap 4 (5-15); BUN 19 mg/dL (7-18); BUN/Creat Ratio 18.4 RATIO (10-20); Calcium,Total 8.4 mg/dL (8.5-10.1); Chloride 115 mmol/L (98-107); Creatinine, Serum 1.03 mg/dL (0.55-1.02); EST Glomerular Filtration Rate 58 mL/min (>60); Est Glom Filt Rate - Afr Amer 70 mL/min (>60); Estimated Creatinine Clearance 48.65 ml/min; Globulin 4.2 g/dL (2.2-4.2); Glucose 164 mg/dL (74-106); Potassium 3.8 mmol/L (3.5-5.1); Protein, Total 6.1 g/dL (6.4-8.2); Sodium Level 145 mmol/L (136-145)
[2021-08-27] MEDS: Heparin Injection (Vial) 5,000 UNIT/ML VIAL 5000 UNIT SC ×3 (06:22→21:48)
[2021-08-27] MEDS: 0.9% Saline Lock 10 ML Syringe IV (06:24)
[2021-08-27] MEDS: Insulin Lispro 100 UNIT/ML INSULN.PEN SC ×2 (06:25→11:47)
[2021-08-27] MEDS: Metoprolol Tartrate 5 MG/5 ML Vial IV ×3 (06:25→17:28)
--- NOTE | 2021-08-27 06:43 | PCM.PN.INT ---
Assessment & Plan Assessment/Plan (1) Sepsis: PLAN: RECOMMENDATIONS: 1. Continue heated high flow oxygen and wean FiO2 for saturations greater than 90%. 2. Broaden antimicrobials. 3. Maintain n.p.o. status, pending evaluation by speech therapy. 4. Await results of Covid antibody profile. 5. Attempt gentle diuresis as tolerated by hemodynamics and renal function. 6. Recommend empiric use of BiPAP therapy with naps and nightly. 7. Continue scheduled bronchodilators and IV steroids. 8. Continue appropriate DVT prophylaxis. IMPRESSIONS: 1. Sepsis Sepsis due to suspected pneumonia with acute sepsis related organ dysfunction as evidenced by acute respiratory failure necessitating noninvasive positive pressure ventilatory support, acute kidney injury and lactic acidemia. The patient does have an extensive smoking history and likely has underlying obstructive lung disease. For now, it is reasonable to continue antimicrobials along with scheduled bronchodilators and steroids. Plan to continue to wean supplemental oxygen to maintain saturations at or above 90%. Encourage incentive spirometer use and mobilize patient as tolerated. Over concerns for aspiration, the patient was made n.p.o., pending evaluation by speech therapy. Her antimicrobials were also broadened this morning. IV Lasix will also be administered today. 2. Acute on chronic kidney disease Resolved. Likely prerenal in etiology and related to #1. Continue to monitor urine output. No current indication for renal replacement therapy. 3. Chronic tobacco dependency/questionable obstructive lung disease Smoking cessation counseling was provided. Nicotine replacement therapy can be offered to the patient while admitted to the hospital. The patient will be continued on supplemental oxygen along with scheduled bronchodilators and steroids. 4. Morbid obesity/hypertension/hyperlipidemia/diabetes mellitus/GERD/bipolar disorder Complicates care, management, recovery and prognosis. Continue home medications as indicated. This note was generated with [employer] dictation software. It may contain incorrect words, spelling, and punctuation that were not noted in checking the note before signing. Subjective Subjective The patient was seen and examined at the bedside this morning. Events from the last 24 hours have been reviewed. The patient is currently afebrile, hemodynamically stable and maintaining appropriate oxygen saturations on Airvo heated high flow with an FiO2 requirement of 70% and flow rate of 35 L/min. Nursing staff did report that the patient has been experiencing intermittent episodes of atrial fibrillation. The patient did have an elevated D-dimer yesterday, for which a CTA chest was completed. Although no PE was identified, there was evidence of diffuse bilateral groundglass opacities. Given that the patient had a negative Covid PCR, an antibody profile was sent. The patient is currently documented to be overall net +5.7 L. She remains on antimicrobials, scheduled bronchodilators and steroids. In light of her worsening oxygenation status, her antimicrobials were broadened this morning. Per nursing report, the patient did apparently cough this morning with ingestion of food. Accordingly, she was made n.p.o. and speech therapy was consulted. Objective Data Objective Data The patient's most recent lab work, culture data and imaging studies have all been personally reviewed. Covid PCR was negative. Respiratory viral panel was negative. Strep and urine Legionella antigens were negative. Blood and urine cultures are pending. Vital Signs: Vital Signs Temp Pulse Resp BP Pulse Ox 98.8 F 103 H 30 H 124/61 H 90 08/27/21 04:00 08/27/21 06:25 08/27/21 06:00 08/27/21 06:25 08/27/21 06:00 Oxygen Flow Rate (L/min) 35 Oxygen Delivery Method Airvo Weight: 114.5 kg Body Mass Index (BMI) 43.7 Intake & Output: Intake and Output for Last 24 Hours 08/25/21 08/26/21 08/27/21 23:59 23:59 23:59 Intake Total 4295 / 4295 2050 / 2050 Output Total 390 / 390 200 / 200 Balance 3905 / 3905 1850 / 1850 Lab / Micro Data Attestation: I reviewed the patient's lab results. Result Diagrams: 08/27/21 05:20 08/27/21 05:20 Labs: Laboratory Results - last 24 hr 08/26/21 08:30: D-Dimer Quant (PE/DVT) 12.66 H* 08/26/21 11:59: POC Glucose 117 H 08/26/21 14:45: SARS-CoV-2 IgG Ab 0.88 08/26/21 18:23: POC Glucose 149 H 08/26/21 21:16: POC Glucose 185 H 08/27/21 05:20: WBC 19.3 H, RBC 4.03 L, Hgb 12.7, Hct 38.7, MCV 96.0, MCH 31.5, MCHC 32.8, RDW Std Deviation 50.1 H, RDW Coeff of Robert 14.1, Plt Count 330, MPV 10.2, Immature Gran % (Auto) 0.900, Neut % (Auto) 90.6 H, Lymph % (Auto) 6.7 L, [place] % (Auto) 1.5, Eos % (Auto) 0.0, Baso % (Auto) 0.3, Absolute Neuts (auto) 17.5 H, Absolute Lymphs (auto) 1.30, Nucleated RBC % 0.9 08/27/21 05:20: Sodium 145, Potassium 3.8, Chloride 115 H, Carbon Dioxide 26.0, Anion Gap 4 L, BUN 19 H, Creatinine 1.03 H, Estim Creat Clear Calc 48.65, Est GFR (MDRD) Af Amer 70, Est GFR (MDRD) Non-Af 58 L, BUN/Creatinine Ratio 18.4, Glucose 164 H, Calcium 8.4 L, Total Bilirubin 0.60, AST 67 H, ALT 43, Alkaline Phosphatase 97, Total Protein 6.1 L, Albumin 1.9 L, Globulin 4.2, Albumin/Globulin Ratio 0.5 L Micro: Microbiology 08/25/21 Unknown Mucosa - Nasopharyngeal Respiratory Panel (PCR) - Final 08/25/21 23:00 Urine Catheter - Catheter Legionella Antigen - Final 08/25/21 23:00 Urine Catheter - Catheter Streptococcus pneumoniae Antigen (M - Final Radiography Diagnostic Testing: Radiology Impression Chest CTA 08/26/21 09:57 IMPRESSION: No evidence of pulmonary embolism. Diffuse bilateral pulmonary infiltrates as described. Electronically Signed: Marvel Pierce MD at 11:18 EST , Physical Exam Const alert General Appearance: cooperative and ill appearing Orientation / Consciousness: confused and disoriented Nutritional Appearance: morbidly obese HEENT normocephalic and head/scalp atraumatic Eyes PERRL, EOMs intact bilaterally and conjunctivae normal Neck supple General: trachea midline Resp Effort and Inspection: tachypneic Auscultation: diminished lung sounds; Negative for rales, rhonchi or wheezes Cardio regular rate, regular rhythm, S1 normal heart sound and S2 normal heart sound GI normal to inspection, nondistended, normoactive bowel sounds Extremity General Extremity: edema bilateral lower extremity Skin no rashes or lesions noted Neuro CN's II-XII intact bilaterally and no focal motor deficits Psych Mood & Affect: flat affect Charges/Coding Visit Charges Inpatient E&M: 60822 Subs Hosp L3
[2021-08-27] MEDS: Ipratropium/Albuterol Sulfate 3 ML AMPUL.NEB INHALATION ×4 (07:09→19:21)
[2021-08-27] MEDS: Furosemide 40 MG/4 ML Vial IV (08:21)
[2021-08-27] MEDS: Pantoprazole Sodium 40 MG Tablet PO (08:24)
[2021-08-27] MEDS: Mirabegron 25 MG TAB.ER.24H PO (08:24)
[2021-08-27] MEDS: Fludrocortisone Acetate 0.1 MG Tablet PO (08:24)
[2021-08-27] MEDS: Citalopram 10 MG Tablet PO (08:24)
[2021-08-27] MEDS: Topiramate 25 MG Tablet PO ×2 (08:25→21:49)
[2021-08-27] MEDS: Amantadine 100 MG Capsule PO ×2 (08:25→21:49)
--- NOTE | 2021-08-27 09:49 | CASEMGMT ---
Social Work Pt's nurse brought this SW pt phone on which pt sister Brianne Valladares was on the line. Brianne stating she and a friend Ahmet live with pt at address listed on demographic sheet. Brianne states she does not know Ahmet's last name. SW attempted to medical information from Alison however, Alison with low medical literacy and having difficulty answering questions. Alison did state pt does not leave the home except for appointments and her case making machine operator transports her. Alison states pt does have urinary problems and wears double diapers but still wets through her clothes. Alison also states pt has been confused over the last two months. SW inquired if pt had a HCPOA and Alison does not think. Pt is and has 3 children but Alison does not know last names or contact numbers. Pt demo sheet updated with Chuck correct phone number. ANGI spoke with Nicolasa Alaniz, manager channel from [facility]. Pt had a case making machine operator that knew pt well however she recently resigned. Nicolasa is new case making machine operator and does not know pt well or living situation. She did state that pt sees Dr. Bradford - PCP, Dr. Cameron - psychaitrist, Dr. Alba - urologist and a mixer operator. Per Nicolasa, pt fell last week and Ahmet called the EMS. Pt refused to be transferred to hospital. Nicolasa picked pt up for an appointment on 08/25 and persuaded pt to go to hospital. ANGI met with pt in room and introduced self. Pt orientation much improved at this time. Pt is able to tell ANGI that she is in [place] and in a hospital, but uncertain why she is here. She is able to explain her living situation. Pt lives in a mobile home with her sister Alison and friend Ahmet. Pt states she does not leave the house except for appointments. Alison and Ahmet get groceries and all three can prepare their own meals. Pt has a walker and a cane and uses the walker for ambulation. Pt states she takes her meds appropriately and does not require help with this. Pt confirms she does not have a HCPOA and is . She has three children. A son Heriberto who is in senior living. A daughter Pedro who she does not talk to. and a daughter Shira that she tries to help out. SW inquired if SW can call Shira and pt declined stating she does not have Shira's phone number and Shira calls pt if she wants to talk but pt cannot get in touch with Shira. Nurse updated on information obtained. SW will continue to follow for support and discharge planning. BILL Siegel
--- NOTE | 2021-08-27 10:26 | PN.HOSP_ITS ---
Subjective Subjective Patient seen and examined. She was now on AirVo as her oxygen sats had worsened overnight. She says she wants to go home. She denied any chest pain, palpitations, dizziness, nausea or vomiting. Review of systems is otherwise negative. Objective Data Objective Data Vital Signs: Vital Signs Temp Pulse Resp BP Pulse Ox 98.8 F 86 24 H 124/61 H 94 08/27/21 04:00 08/27/21 08:00 08/27/21 07:09 08/27/21 06:25 08/27/21 08:00 Oxygen Flow Rate (L/min) 35 Oxygen Delivery Method Airvo Weight: 252 lb 6.868 oz Body Mass Index (BMI) 43.7 Intake & Output: Intake and Output for Last 24 Hours 08/25/21 08/26/21 08/27/21 23:59 23:59 23:59 Intake Total 4295 / 4295 2049 / 2049 Output Total 390 / 390 200 / 200 Balance 3905 / 3905 1850 / 1850 Lab / Micro Data Result Diagrams: 08/27/21 05:20 08/27/21 05:20 Labs: Laboratory Results - last 24 hr 08/26/21 11:59: POC Glucose 117 H 08/26/21 14:45: SARS-CoV-2 IgG Ab 0.88 08/26/21 18:23: POC Glucose 149 H 08/26/21 21:16: POC Glucose 185 H 08/27/21 05:20: WBC 19.3 H, RBC 4.03 L, Hgb 12.7, Hct 38.7, MCV 96.0, MCH 31.5, MCHC 32.8, RDW Std Deviation 50.1 H, RDW Coeff of Robert 14.1, Plt Count 330, MPV 10.2, Immature Gran % (Auto) 0.900, Neut % (Auto) 90.6 H, Lymph % (Auto) 6.7 L, [place] % (Auto) 1.5, Eos % (Auto) 0.0, Baso % (Auto) 0.3, Absolute Neuts (auto) 17.5 H, Absolute Lymphs (auto) 1.30, Nucleated RBC % 0.9 08/27/21 05:20: Sodium 145, Potassium 3.8, Chloride 115 H, Carbon Dioxide 26.0, Anion Gap 4 L, BUN 19 H, Creatinine 1.03 H, Estim Creat Clear Calc 48.65, Est GFR (MDRD) Af Amer 70, Est GFR (MDRD) Non-Af 58 L, BUN/Creatinine Ratio 18.4, Glucose 164 H, Calcium 8.4 L, Total Bilirubin 0.60, AST 67 H, ALT 43, Alkaline Phosphatase 97, Total Protein 6.1 L, Albumin 1.9 L, Globulin 4.2, Albumin/Globulin Ratio 0.5 L Micro: Microbiology 08/25/21 23:00 Urine, Catheterized Urine Culture - Preliminary Culture exhibits no growth. 08/25/21 Unknown Mucosa - Nasopharyngeal Respiratory Panel (PCR) - Final 08/25/21 23:00 Urine Catheter - Catheter Legionella Antigen - Final 08/25/21 23:00 Urine Catheter - Catheter Streptococcus pneumoniae Antigen (M - Final Radiography Diagnostic Testing: Radiology Impression Chest CTA 08/26/21 09:57 IMPRESSION: No evidence of pulmonary embolism. Diffuse bilateral pulmonary infiltrates as described. Electronically Signed: Marvel Pierce MD at 11:18 EST , Physical Exam Const alert General Appearance: cooperative Orientation / Consciousness: confused Exam Limitations: altered mental status HEENT normocephalic and head/scalp atraumatic Head and Scalp: normocephalic Mouth: dry mucous membranes Eyes PERRL, EOMs intact bilaterally, conjunctivae normal and no scleral icterus Neck no lymphadenopathy and supple General: trachea midline Lymph Lymphatic: no lymphadenopathy noted Resp clear to auscultation bilaterally Resp Narrative: tachypneic, coarse crackles bibasally, no wheezes. On AirVo Auscultation: wheezes expiratory wheezes, anterior, posterior and throughout Cardio regular rate, regular rhythm, S1 normal heart sound, S2 normal heart sound and no murmurs Cardio Narrative: tachypneic GI normal to inspection, nondistended, normoactive bowel sounds, soft to palpation, non-tender and non-distended Extremity normal to inspection, full ROM, normal capillary refill and no clubbing, cyanosis or edema General Extremity: no tenderness to palpation of joints or extremities Peripheral Pulses: Yes pulses 2+ throughout Skin no rashes or lesions noted General Skin Exam: turgor normal Neuro CN's II-XII intact bilaterally, moves all extremities, no focal motor deficits and no sensory deficits noted Sensorium / Orientation: awake, orientation impaired and confused Psych Psych Narrative: confused Appearance: unkempt Attitude: bizarre Activity / Motor Behavior: restless Assessment & Plan Assessment/Plan (1) Acute respiratory failure with hypoxia: (2) Bilateral interstitial pneumonia: PLAN: #Acute hypoxic respiratory failure due to bilateral pneumonia * now on AirVo * antibiotics broadened to meropenem. * blood and sputum cultures ordered. * on IV ceftriaxone and azithromycin. * on IV solumedrol * critical care on board * titrate oxygen to maintain sats >90% * #Acute metabolic encephalopathy due to bilateral pneumonia and acute hypoxic respiratory failure * Patient still remains very confused. * management as above. PT.OT on board. Fall precautions * currently NPO; awaiting speech therapy evaluation due to concerns about aspiration * covid antibody test ordered and pending. * #Sepsis due to bilateral pneumonia and UTI * now on IV meropenem * blood and urine cultures pending * covid test was negative * * #Elevated D dimer: CTA was negative for PE. #Atrial fibrillation * patient noted to be going into intermittent afib per nurses. Patient in sinus tachycardia at time of my review today * will monitor per telemetry for afib. * order 2D echo * #STEVEN on CKD 3: resolved. CR is 1.03 today. #Elevated liver enzymes * resolved. * #Hypernatremia: resolved. Na is down to 145 today. #Hypotension: Resovlved. Will continue holding BP meds for now. #Lactic acidosis: resolved. #Bipolar disorder and depression: on citalopram and topiramate #Type 2 diabetes mellitus: metformin on hold due to lactic acidosis DVT prophylaxis: heparin Charges/Coding Visit Charges Inpatient E&M: 27216 Subs Hosp L3
[2021-08-27 10:37] LABS: MG Sendout 2.2 mg/dL (1.6-2.3)
--- NOTE | 2021-08-27 10:42 | ECHOD_ITS ---
Reason For Study: AFIB/FLUTTER Procedure This was a 2D Doppler, Color Flow transthoracic echocardiogram. The study was technically difficult. Pt had heightening anxiety during echo- DID NOT WANT TO CONTINUE. Exam performed portable in ICU/CCU. Left Ventricle Normal left ventricle. The estimated ejection fraction is 55-60 %. Right Ventricle Normal right ventricle. Normal systolic function. Atria Normal left atrium. Normal right atrium. Mitral Valve The mitral valve chordae are thickened and/or calcified. Trivial mitral valve insufficiency. Tricuspid Valve Normal tricuspid valve. Mild tricuspid valve insufficiency. Aortic Valve Normal aortic valve. Pulmonic Valve The pulmonic valve is not well visualized. Great Vessels Normal aortic root. Pericardium/Pleural Small pericardial effusion. MMode/2D Measurements & Calculations LVIDd: 4.9 cm IVSd: 1.2 cm Ao root diam: 3.1 cm LVIDs: 3.3 cm LVPWd: 1.3 cm RVDd: 3.5 cm FS: 31.6 % LAV(MOD-bp): 48.3 ml LVAd ap4: 25.1 cm2 SV(MOD-sp4): 39.9 ml LAV(MOD-bp) Indexed: 22.7 ml/m2 LVLd ap4: 7.3 cm LAV(MOD-sp2): 48.0 ml EDV(MOD-sp4): 70.1 ml LAV(MOD-sp4): 46.5 ml EDV(sp4-el): 73.0 ml LVAs ap4: 14.5 cm2 LVLs ap4: 6.0 cm ESV(MOD-sp4): 30.2 ml ESV(sp4-el): 30.0 ml EF(MOD-sp4): 56.9 % EF(sp4-el): 58.9 % SV(sp4-el): 43.0 ml LA A4 area: 16.5 cm2 LA dimension(2D): 3.7 cm RA A4 area: 15.2 cm2 Doppler Measurements & Calculations MV E max ricky: 60.9 cm/sec Lat Peak E' Ricky: 7.9 cm/sec Med Peak E' Ricky: 6.4 cm/sec MV A max ricky: 82.2 cm/sec E/E' lat: 7.7 E/E' med: 9.5 MV E/A: 0.74 Ao V2 max: 136.5 cm/sec LV V1 max: 106.3 cm/sec Ao max P.5 mmHg LV V1 max P.5 mmHg ECHO/Echo Complete Interpretation Summary The estimated ejection fraction is 55-60 %. No significant changes from prior echo in 01/14/2014 Ordering Physician: Shani Pelaez Referring Physician: JOSE LAZAR Performed By: Clair Grewal, RDCS, RVT
[2021-08-27 11:51] LABS: Bedside Glucose 151 mg/dL (70-110)
[2021-08-27 16:30] LABS: Bedside Glucose 138 mg/dL (70-110)
[2021-08-27 22:06] LABS: Bedside Glucose 142 mg/dL (70-110)
[2021-08-28] VITALS (30 sets, daily range): BP systolic 95–125; BP diastolic 46–76; PULSE 66–106; RESP 17–29; TEMP 36.3–36.7; O2SAT 74–97
[2021-08-28] MEDS: Metoprolol Tartrate 5 MG/5 ML Vial IV ×2 (00:03→06:14)
[2021-08-28 06:36] LABS: Bedside Glucose 148 mg/dL (70-110)
[2021-08-28 06:36] LABS: Absolute Lymphocyte Count 1.34 X10^3/uL (0.83-4.51); Absolute Neutrophil Count 13.4 X10^3/uL (2.0-7.7); Basophil# 0.05 X10^3/uL; Basophil% 0.3 % (0-1); Hematocrit 39.2 % (37-47); Hemoglobin 12.8 g/dL (12.0-15.0); Lymphocyte # 1.34 X10^3/ul (0.83-4.51); Lymphocyte % 8.8 % (19-41); Mean Corp Hgb Conc 32.7 g/dL (32-36); Mean Corpuscular Hgb 31.4 pg (27.0-32.0); Mean Corpuscular Volume 96.1 fL (81-99); Mean Platelet Vol. 10.2 fl (6.2-12.0); Monocyte# 0.36 X10^3/uL; Monocyte% 2.4 % (0-10); NRBC Flagged by Analyzer 0.3 % (0-5); Neutrophil # 13.44 X10^3/uL (2.7-7.7); Neutrophil % 87.7 % (47-70); POSITIVE MORPHOLOGY YES; Platelet Count 350 K/mm3 (150-450); RBC Distribution Width SD 49.6 fl (35.1-43.9); Red Blood Count 4.08 M/mm3 (4.2-5.4); White Blood Count 15.3 K/mm3 (4.4-11.0)
[2021-08-28 06:40] LABS: Differential Indicated SCAN CRITERIA MET
[2021-08-28 06:48] LABS: Atypical Lymphocyte 1+ %
[2021-08-28 06:51] LABS: ALB/GLOB Ratio 0.5 RATIO (0.9-2.4); AST(SGOT) 64 U/L (15-37); Alanine Aminotransfer ALT/SGPT 42 U/L (13-56); Albumin, Serum 1.9 g/dL (3.2-5.0); Alkaline Phosphatase 92 U/L (45-117); Anion Gap 4 (5-15); BUN 22 mg/dL (7-18); BUN/Creat Ratio 21.4 RATIO (10-20); Calcium,Total 8.3 mg/dL (8.5-10.1); Chloride 115 mmol/L (98-107); Creatinine, Serum 1.03 mg/dL (0.55-1.02); EST Glomerular Filtration Rate 58 mL/min (>60); Est Glom Filt Rate - Afr Amer 70 mL/min (>60); Estimated Creatinine Clearance 48.65 ml/min; Globulin 3.9 g/dL (2.2-4.2); Glucose 129 mg/dL (74-106); Potassium 3.6 mmol/L (3.5-5.1); Protein, Total 5.8 g/dL (6.4-8.2); Sodium Level 148 mmol/L (136-145)
[2021-08-28] MEDS: Ipratropium/Albuterol Sulfate 3 ML AMPUL.NEB INHALATION ×4 (07:02→19:45)
[2021-08-28] MEDS: Pantoprazole Sodium 40 MG Tablet PO (09:22)
[2021-08-28] MEDS: Topiramate 25 MG Tablet PO ×2 (09:22→20:30)
[2021-08-28] MEDS: Mirabegron 25 MG TAB.ER.24H PO (09:22)
[2021-08-28] MEDS: Citalopram 10 MG Tablet PO (09:22)
[2021-08-28] MEDS: Fludrocortisone Acetate 0.1 MG Tablet PO (09:22)
[2021-08-28] MEDS: Amantadine 100 MG Capsule PO ×2 (09:22→20:30)
[2021-08-28 09:31] LABS: Bedside Glucose 130 mg/dL (70-110)
--- NOTE | 2021-08-28 09:36 | PN.CC_ITS ---
Subjective Subjective The patient was seen and examined at the bedside this morning. Events from the last 24 hours have been reviewed. The patient is currently afebrile, hemodynamically stable and maintaining appropriate oxygen saturations on Airvo heated high flow with an FiO2 requirement of 60% and flow rate of 35 L/min. The patient has refused to utilize BiPAP therapy. She is insistent this morning that she would like to go home. However, she seems to lack insight into the fact that this decision would have serious negative health implications. She is currently documented to be overall net +3.4 L for the hospitalization. She remains on antimicrobials, scheduled bronchodilators and steroids. The patient is currently being followed by speech therapy over concerns for potential aspiration. Objective Data Objective Data The patient's most recent lab work, culture data and imaging studies have all been personally reviewed. Covid PCR was negative. Respiratory viral panel was negative. Strep and urine Legionella antigens were negative. Blood and urine cultures are pending. Vital Signs: Vital Signs Temp Pulse Resp BP Pulse Ox 97.9 F 94 22 H 114/57 L 88 08/28/21 08:00 08/28/21 08:00 08/28/21 08:00 08/28/21 08:00 08/28/21 08:00 Oxygen Flow Rate (L/min) 35 Oxygen Delivery Method Airvo Weight: 113.4 kg Body Mass Index (BMI) 43.7 Intake & Output: Intake and Output for Last 24 Hours 08/26/21 08/27/21 08/28/21 23:59 23:59 23:59 Intake Total 2049 120 / 120 184 / 184 Output Total 200 / 200 2175 / 2425 400 / 400 Balance 1850 / 1850 -2055 / -2305 -216 / -216 Lab / Micro Data Attestation: I reviewed the patient's lab results. Result Diagrams: 08/28/21 06:25 08/28/21 06:25 Labs: Laboratory Results - last 24 hr 08/25/21 21:20: Magnesium 2.2 08/27/21 11:45: POC Glucose 151 H 08/27/21 16:24: POC Glucose 138 H 08/27/21 21:55: POC Glucose 142 H 08/28/21 06:25: WBC 15.3 H, RBC 4.08 L, Hgb 12.8, Hct 39.2, MCV 96.1, MCH 31.4, MCHC 32.7, RDW Std Deviation 49.6 H, RDW Coeff of Robert 14.0, Plt Count 350, MPV 10.2, Immature Gran % (Auto) 0.800, Neut % (Auto) 87.7 H, Lymph % (Auto) 8.8 L, [place] % (Auto) 2.4, Eos % (Auto) 0.0, Baso % (Auto) 0.3, Absolute Neuts (auto) 13.4 H, Absolute Lymphs (auto) 1.34, Nucleated RBC % 0.3, Atypical Lymphocytes 1+ 08/28/21 06:25: Sodium 148 H, Potassium 3.6, Chloride 115 H, Carbon Dioxide 29.0, Anion Gap 4 L, BUN 22 H, Creatinine 1.03 H, Estim Creat Clear Calc 48.65, Est GFR (MDRD) Af Amer 70, Est GFR (MDRD) Non-Af 58 L, BUN/Creatinine Ratio 21.4 H, Glucose 129 H, Calcium 8.3 L, Total Bilirubin 0.70, AST 64 H, ALT 42, Alkaline Phosphatase 92, Total Protein 5.8 L, Albumin 1.9 L, Globulin 3.9, Albumin/Globulin Ratio 0.5 L 08/28/21 06:29: POC Glucose 148 H 08/28/21 09:20: POC Glucose 130 H Micro: Microbiology 08/25/21 23:00 Urine, Catheterized Urine Culture - Final Culture exhibits no growth. 08/25/21 Unknown Mucosa - Nasopharyngeal Respiratory Panel (PCR) - Final 08/25/21 23:00 Urine Catheter - Catheter Legionella Antigen - Final 08/25/21 23:00 Urine Catheter - Catheter Streptococcus pneumoniae Antigen (M - Final Physical Exam Const alert General Appearance: cooperative Orientation / Consciousness: confused Nutritional Appearance: morbidly obese HEENT normocephalic and head/scalp atraumatic Eyes PERRL, EOMs intact bilaterally and conjunctivae normal Neck supple General: trachea midline Resp Effort and Inspection: tachypneic Auscultation: diminished lung sounds; Negative for rales, rhonchi or wheezes Cardio regular rate, regular rhythm, S1 normal heart sound and S2 normal heart sound GI normal to inspection, nondistended, normoactive bowel sounds Extremity General Extremity: edema bilateral lower extremity Skin no rashes or lesions noted Neuro CN's II-XII intact bilaterally and no focal motor deficits Psych Mood & Affect: anxious and flat affect Charges/Coding Visit Charges Inpatient E&M: 07296 Subs Hosp L3 Assessment/Plan Assessment/Plan (1) Acute respiratory failure with hypoxia: CODE(S): J96.01 - Acute respiratory failure with hypoxia PLAN: RECOMMENDATIONS: 1. Continue heated high flow oxygen and wean FiO2 for saturations greater than 90%. 2. Continue broad-spectrum antimicrobials. 3. Dietary advancement per speech therapy recommendations. 4. Await results of Covid antibody profile. 5. Recommend empiric use of BiPAP therapy with naps and nightly. 6. Continue scheduled bronchodilators and IV steroids. 7. Continue appropriate DVT prophylaxis. IMPRESSIONS: 1. Sepsis Sepsis due to suspected pneumonia with acute sepsis related organ dysfunction as evidenced by acute respiratory failure necessitating noninvasive positive pressure ventilatory support, acute kidney injury and lactic acidemia. The patient does have an extensive smoking history and likely has underlying obstructive lung disease. For now, it is reasonable to continue antimicrobials along with scheduled bronchodilators and steroids. Plan to continue to wean supplemental oxygen to maintain saturations at or above 90%. Encourage incentive spirometer use and mobilize patient as tolerated. Over concerns for aspiration, the patient is currently on a modified diet and being followed by speech therapy. Plan to continue broad-spectrum antimicrobials as ordered. 2. Acute on chronic kidney disease Resolved. Likely prerenal in etiology and related to #1. Continue to monitor urine output. No current indication for renal replacement therapy. 3. Chronic tobacco dependency/questionable obstructive lung disease Smoking cessation counseling was provided. Nicotine replacement therapy can be offered to the patient while admitted to the hospital. The patient will be continued on supplemental oxygen along with scheduled bronchodilators and steroids. 4. Morbid obesity/hypertension/hyperlipidemia/diabetes mellitus/GERD/bipolar disorder Complicates care, management, recovery and prognosis. Continue home medications as indicated. This note was generated with [employer] dictation software. It may contain incorrect words, spelling, and punctuation that were not noted in checking the note before signing.
--- NOTE | 2021-08-28 10:33 | PN.HOSP_ITS ---
Subjective Subjective Patient seen and examined. She remains on AirVo. She complains of lying in bed for too long and wants to get out of bed and sit in a chair. Patient is quite restless. She admits to coughing but is nonproductive. She denies any fever or chills, nausea vomiting or diarrhea. She remains on air Vo. Review of systems otherwise negative. Objective Data Objective Data Vital Signs: Vital Signs Temp Pulse Resp BP Pulse Ox 98.1 F 83 20 H 119/68 94 08/28/21 10:00 08/28/21 10:00 08/28/21 10:00 08/28/21 10:00 08/28/21 10:00 Oxygen Flow Rate (L/min) 35 Oxygen Delivery Method Airvo Weight: 250 lb 0.067 oz Body Mass Index (BMI) 43.7 Intake & Output: Intake and Output for Last 24 Hours 08/26/21 08/27/21 08/28/21 23:59 23:59 23:59 Intake Total 2049 / 2049 120 / 120 184 / 184 Output Total 200 / 200 2175 / 2425 400 / 400 Balance 1850 / 1850 -2055 / -2305 -216 / -216 Lab / Micro Data Result Diagrams: 08/28/21 06:25 08/28/21 06:25 Labs: Laboratory Results - last 24 hr 08/25/21 21:20: Magnesium 2.2 08/27/21 11:45: POC Glucose 151 H 08/27/21 16:24: POC Glucose 138 H 08/27/21 21:55: POC Glucose 142 H 08/28/21 06:25: WBC 15.3 H, RBC 4.08 L, Hgb 12.8, Hct 39.2, MCV 96.1, MCH 31.4, MCHC 32.7, RDW Std Deviation 49.6 H, RDW Coeff of Robert 14.0, Plt Count 350, MPV 10.2, Immature Gran % (Auto) 0.800, Neut % (Auto) 87.7 H, Lymph % (Auto) 8.8 L, [place] % (Auto) 2.4, Eos % (Auto) 0.0, Baso % (Auto) 0.3, Absolute Neuts (auto) 13.4 H, Absolute Lymphs (auto) 1.34, Nucleated RBC % 0.3, Atypical Lymphocytes 1+ 08/28/21 06:25: Sodium 148 H, Potassium 3.6, Chloride 115 H, Carbon Dioxide 29.0, Anion Gap 4 L, BUN 22 H, Creatinine 1.03 H, Estim Creat Clear Calc 48.65, Est GFR (MDRD) Af Amer 70, Est GFR (MDRD) Non-Af 58 L, BUN/Creatinine Ratio 21.4 H, Glucose 129 H, Calcium 8.3 L, Total Bilirubin 0.70, AST 64 H, ALT 42, Alkaline Phosphatase 92, Total Protein 5.8 L, Albumin 1.9 L, Globulin 3.9, Albumin/Globulin Ratio 0.5 L 08/28/21 06:29: POC Glucose 148 H 08/28/21 09:20: POC Glucose 130 H Micro: Microbiology 08/25/21 23:00 Urine, Catheterized Urine Culture - Final Culture exhibits no growth. 08/25/21 Unknown Mucosa - Nasopharyngeal Respiratory Panel (PCR) - Final 08/25/21 23:00 Urine Catheter - Catheter Legionella Antigen - Final 08/25/21 23:00 Urine Catheter - Catheter Streptococcus pneumoniae Antigen (M - Final Physical Exam Const alert and oriented x3 Constitutional Narrative: restless General Appearance: cooperative Exam Limitations: no limitations Nutritional Appearance: obese HEENT normocephalic and head/scalp atraumatic Head and Scalp: normocephalic Eyes PERRL, EOMs intact bilaterally, conjunctivae normal and no scleral icterus Neck no lymphadenopathy and supple General: trachea midline Lymph Lymphatic: no lymphadenopathy noted Resp clear to auscultation bilaterally Resp Narrative: tachypneic, coarse crackles bibasally, no wheezes. On AirVo at FiO2 of 65% and 35L/min of oxygen. Auscultation: wheezes expiratory wheezes, anterior, posterior and throughout Cardio regular rate, regular rhythm, S1 normal heart sound, S2 normal heart sound and no murmurs GI normal to inspection, nondistended, normoactive bowel sounds, soft to palpation, non-tender and non-distended Extremity normal to inspection, full ROM, normal capillary refill and no clubbing, cyanosis or edema General Extremity: no tenderness to palpation of joints or extremities Peripheral Pulses: Yes pulses 2+ throughout Skin no rashes or lesions noted General Skin Exam: turgor normal Neuro CN's II-XII intact bilaterally, moves all extremities, no focal motor deficits and no sensory deficits noted Sensorium / Orientation: awake, orientation impaired and confused Psych Psych Narrative: restless Appearance: unkempt Attitude: bizarre Activity / Motor Behavior: restless Charges/Coding Addendum Addendum: Assessment and plan #Acute hypoxic respiratory failure due to bilateral pneumonia * remains on AirVo * remains on meropenem * on IV solumedrol * breathing treatments with bronchodilators * titrate oxygen to maintain sats >90% * blood cultures pending * #Acute metabolic encephalopathy due to bilateral pneumonia and acute hypoxic respiratory failure * patient less confused today, but restless and wants to get out of bed. * PT/OT on board. Fall precautions * currently NPO; awaiting speech therapy evaluation due to concerns about aspiration covid antibody test ordered and pending. #Sepsis due to bilateral pneumonia and UTI * on IV meropenem * blood and urine cultures pending * covid test was negative * #Elevated D dimer: CTA was negative for PE. #Paroxysmal Atrial fibrillation * patient noted to be going into intermittent afib per nurses yesterday. Appears to be in sinus rhythm since then. * 2D echo done: read is pending * #STEVEN on CKD 3: resolved. #Hypernatremia: Na is 148 today. Will start on D5W to help with hypernatremia #Hypotension: Resolved. Will continue holding BP meds for now. #Lactic acidosis: resolved. #Bipolar disorder and depression: on citalopram and topiramate #Type 2 diabetes mellitus: metformin on hold due to lactic acidosis DVT prophylaxis: heparin Disposition: transfer out of ICU to PCU Visit Charges Inpatient E&M: 47272 [facility] L3
[2021-08-28 12:05] LABS: Bedside Glucose 121 mg/dL (70-110)
--- NOTE | 2021-08-28 13:17 | CASEMGMT ---
Social Work SW attended ICU rounds. Pt requesting to go home. Nursing and physicians have explained to pt her need to be in hospital. SW placed call to Radha Alaniz CM at [facility] and updated on pt. Radha states she is able to transport pt home but will not take pt home until she is medically ready. SW met with pt in room. Pt is not anxious nor requesting to go home. Pt restless in chair. Per pt request, SW assisted pt in attempting to call her sister with no answer. ANGI will remain available for support if continued needs arise. BILL Siegel
[2021-08-28] MEDS: Heparin Injection (Vial) 5,000 UNIT/ML VIAL 5000 UNIT SC ×2 (13:53→20:28)
[2021-08-28 14:13] LABS: SAR-COV-2 IGM ANTIBODY Negative (Negative)
--- NOTE | 2021-08-28 16:10 | CASEMGMT ---
This RN CM to room and pt up in chair on airvo and very anxious. Oxygen sats between 89-91% at this time on airvo. Shyann SALCIDO aware. Pt provided with list of [facility] providers including quality and resource use data and consistent with the pt's preferred geographic region, medical needs, and insurance network. CM to follow. Hay SALCIDO CM
[2021-08-28 16:31] LABS: Bedside Glucose 104 mg/dL (70-110)
[2021-08-28] MEDS: QUEtiapine 100 MG Tablet 200 MG PO (20:27)
--- NOTE | 2021-08-28 20:40 | NURSING ---
patient requested mediations early
[2021-08-28 20:41] LABS: Bedside Glucose 120 mg/dL (70-110)
[2021-08-28] MEDS: 0.9% Saline Lock 10 ML Syringe IV (23:19)
[2021-08-28] MEDS: LORazepam 0.5 MG Tablet PO (23:20)
[2021-08-29] VITALS (16 sets, daily range): BP systolic 113–122; BP diastolic 54–78; PULSE 71–108; RESP 15–26; TEMP 36.4–36.8; O2SAT 90–97
[2021-08-29] MEDS: Heparin Injection (Vial) 5,000 UNIT/ML VIAL 5000 UNIT SC ×3 (05:23→21:32)
[2021-08-29 06:10] LABS: Basophil# 0.02 X10^3/uL; Basophil% 0.2 % (0-1); Hematocrit 37.5 % (37-47); Lymphocyte % 10.8 % (19-41); Mean Corpuscular Hgb 30.7 pg (27.0-32.0); Mean Corpuscular Volume 95.9 fL (81-99); Mean Platelet Vol. 10.4 fl (6.2-12.0); Monocyte# 0.21 X10^3/uL; Monocyte% 2.3 % (0-10); NRBC Flagged by Analyzer 0.3 % (0-5); Neutrophil # 7.96 X10^3/uL (2.7-7.7); Neutrophil % 85.8 % (47-70); POSITIVE MORPHOLOGY YES; Platelet Count 341 K/mm3 (150-450); RBC Distribution Width CV 14.1 % (11.6-14.6); Red Blood Count 3.91 M/mm3 (4.2-5.4); White Blood Count 9.3 K/mm3 (4.4-11.0)
[2021-08-29 06:14] LABS: Differential Indicated SCAN CRITERIA MET
[2021-08-29 06:50] LABS: Differential Comment SCANNED
--- NOTE | 2021-08-29 06:52 | PCM.PN.INT ---
Assessment & Plan Assessment/Plan (1) Sepsis: PLAN: RECOMMENDATIONS: 1. Continue heated high flow oxygen and wean FiO2 for saturations greater than 90%. 2. Continue broad-spectrum antimicrobials. 3. Dietary advancement per speech therapy recommendations. 4. Recommend empiric use of BiPAP therapy with naps and nightly. 5. Continue scheduled bronchodilators and IV steroids. 6. Continue appropriate DVT prophylaxis. 7. Administer IV Lasix today. IMPRESSIONS: 1. Sepsis Sepsis due to suspected pneumonia with acute sepsis related organ dysfunction as evidenced by acute respiratory failure necessitating noninvasive positive pressure ventilatory support, acute kidney injury and lactic acidemia. The patient does have an extensive smoking history and likely has underlying obstructive lung disease. For now, it is reasonable to continue antimicrobials along with scheduled bronchodilators and steroids. Plan to continue to wean supplemental oxygen to maintain saturations at or above 90%. Encourage incentive spirometer use and mobilize patient as tolerated. Over concerns for aspiration, the patient is currently on a modified diet and being followed by speech therapy. Plan to continue broad-spectrum antimicrobials as ordered. 2. Acute on chronic kidney disease Resolved. Likely prerenal in etiology and related to #1. Continue to monitor urine output. No current indication for renal replacement therapy. 3. Chronic tobacco dependency/questionable obstructive lung disease Smoking cessation counseling was provided. Nicotine replacement therapy can be offered to the patient while admitted to the hospital. The patient will be continued on supplemental oxygen along with scheduled bronchodilators and steroids. 4. Morbid obesity/hypertension/hyperlipidemia/diabetes mellitus/GERD/bipolar disorder Complicates care, management, recovery and prognosis. Continue home medications as indicated. This note was generated with [employer] dictation software. It may contain incorrect words, spelling, and punctuation that were not noted in checking the note before signing. Subjective Subjective The patient was seen and examined at the bedside this morning. Events from the last 24 hours have been reviewed. The patient is currently afebrile, hemodynamically stable and maintaining appropriate oxygen saturations on Airvo heated high flow with an FiO2 requirement of 55%. The patient is documented to be overall net +3.6 L for the hospitalization. She remains on antimicrobials, bronchodilators and steroids. Objective Data Objective Data The patient's most recent lab work, culture data and imaging studies have all been personally reviewed. Covid PCR was negative. Respiratory viral panel was negative. Strep and urine Legionella antigens were negative. Blood and urine cultures have demonstrated no growth to date. Vital Signs: Vital Signs Temp Pulse Resp BP Pulse Ox 97.5 F L 95 18 114/78 94 08/29/21 04:20 08/29/21 04:20 08/29/21 04:20 08/29/21 04:20 08/29/21 04:20 Oxygen Flow Rate (L/min) 55 Oxygen Delivery Method Airvo Weight: 113.4 kg Body Mass Index (BMI) 43.7 Intake & Output: Intake and Output for Last 24 Hours 08/27/21 08/28/21 08/29/21 23:59 23:59 23:59 Intake Total 120 / 120 1024 / 1024 120 / 120 Output Total 2175 / 2425 675 / 975 500 / 500 Balance -2055 / -2305 349 / 49 -380 / -380 Lab / Micro Data Attestation: I reviewed the patient's lab results. Result Diagrams: 08/29/21 05:20 08/29/21 05:20 Labs: Laboratory Results - last 24 hr 08/26/21 14:45: SARS-CoV-2 IgM Ab Negative 08/28/21 09:20: POC Glucose 130 H 08/28/21 12:00: POC Glucose 121 H 08/28/21 16:22: POC Glucose 104 08/28/21 20:35: POC Glucose 120 H 08/29/21 05:20: WBC 9.3, RBC 3.91 L, Hgb 12.0, Hct 37.5, MCV 95.9, MCH 30.7, MCHC 32.0, RDW Std Deviation 50.0 H, RDW Coeff of Robert 14.1, Plt Count 341, MPV 10.4, Immature Gran % (Auto) 0.900, Neut % (Auto) 85.8 H, Lymph % (Auto) 10.8 L, [place] % (Auto) 2.3, Eos % (Auto) 0.0, Baso % (Auto) 0.2, Absolute Neuts (auto) 8.0 H, Absolute Lymphs (auto) 1.00, Nucleated RBC % 0.3, Differential Comment SCANNED Micro: Microbiology 08/25/21 16:00 Blood Culture (Wb) - Anticubital Right Blood Culture - Preliminary No growth in 48 hours. 08/25/21 16:00 Blood Culture (Wb) - Anticubital Right Blood Culture - Preliminary No growth in 48 hours. 08/25/21 23:00 Urine, Catheterized Urine Culture - Final Culture exhibits no growth. 08/25/21 Unknown Mucosa - Nasopharyngeal Respiratory Panel (PCR) - Final 08/25/21 23:00 Urine Catheter - Catheter Legionella Antigen - Final 08/25/21 23:00 Urine Catheter - Catheter Streptococcus pneumoniae Antigen (M - Final Radiography Diagnostic Testing: Radiology Impression Echocardiogram 08/27/21 10:42 Interpretation Summary The estimated ejection fraction is 55-60 %. No significant changes from prior echo in 01/14/2014 Ordering Physician: Shani Pelaez Referring Physician: JOSE LAZAR Performed By: Clair Grewal, TESSA, RVT Physical Exam Const alert General Appearance: cooperative Nutritional Appearance: morbidly obese HEENT normocephalic and head/scalp atraumatic Eyes PERRL, EOMs intact bilaterally and conjunctivae normal Neck supple General: trachea midline Resp Auscultation: diminished lung sounds; Negative for rales, rhonchi or wheezes Cardio regular rate, regular rhythm, S1 normal heart sound and S2 normal heart sound GI normal to inspection, nondistended, normoactive bowel sounds Extremity General Extremity: edema bilateral lower extremity Skin no rashes or lesions noted Neuro CN's II-XII intact bilaterally and no focal motor deficits Psych Mood & Affect: flat affect Charges/Coding Visit Charges Inpatient E&M: 09735 Subs Hosp L3
[2021-08-29 07:04] LABS: ALB/GLOB Ratio 0.5 RATIO (0.9-2.4); AST(SGOT) 76 U/L (15-37); Alanine Aminotransfer ALT/SGPT 49 U/L (13-56); Alkaline Phosphatase 96 U/L (45-117); Anion Gap 5 (5-15); BUN 24 mg/dL (7-18); BUN/Creat Ratio 28.2 RATIO (10-20); Calcium,Total 8.6 mg/dL (8.5-10.1); Chloride 111 mmol/L (98-107); Creatinine, Serum 0.85 mg/dL (0.55-1.02); EST Glomerular Filtration Rate 73 mL/min (>60); Est Glom Filt Rate - Afr Amer 88 mL/min (>60); Estimated Creatinine Clearance 58.95 ml/min; Globulin 3.7 g/dL (2.2-4.2); Glucose 131 mg/dL (74-106); Potassium 3.9 mmol/L (3.5-5.1); Protein, Total 5.7 g/dL (6.4-8.2); Sodium Level 145 mmol/L (136-145)
[2021-08-29 07:06] LABS: Bedside Glucose 134 mg/dL (70-110)
[2021-08-29] MEDS: Fludrocortisone Acetate 0.1 MG Tablet PO (11:16)
[2021-08-29] MEDS: Amantadine 100 MG Capsule PO ×2 (11:17→21:32)
[2021-08-29] MEDS: Citalopram 10 MG Tablet PO (11:17)
[2021-08-29] MEDS: QUEtiapine 100 MG Tablet 200 MG PO ×2 (11:18→21:32)
[2021-08-29] MEDS: Topiramate 25 MG Tablet PO ×2 (11:19→21:32)
[2021-08-29] MEDS: Pantoprazole Sodium 40 MG Tablet PO (11:21)
[2021-08-29] MEDS: Mirabegron 25 MG TAB.ER.24H PO (11:21)
[2021-08-29] MEDS: Furosemide 40 MG/4 ML Vial IV (11:24)
[2021-08-29] MEDS: 0.9% Saline Lock 10 ML Syringe IV ×2 (11:25→21:32)
[2021-08-29] MEDS: LORazepam 0.5 MG Tablet PO ×2 (12:28→21:32)
--- NOTE | 2021-08-29 12:28 | PN.HOSP_ITS ---
Subjective Subjective Patient seen and examined. She remains on air Vo. She had no active complaints today. Patient does remain a bit agitated and has periods of confusion. Review of systems otherwise negative. Objective Data Objective Data Vital Signs: Vital Signs Temp Pulse Resp BP Pulse Ox 97.9 F 71 15 122/73 H 93 08/29/21 10:20 08/29/21 10:33 08/29/21 10:33 08/29/21 10:20 08/29/21 10:33 Oxygen Flow Rate (L/min) 55 Oxygen Delivery Method Airvo Weight: 250 lb 0.067 oz Body Mass Index (BMI) 43.7 Intake & Output: Intake and Output for Last 24 Hours 08/27/21 08/28/21 08/29/21 23:59 23:59 23:59 Intake Total 120 / 120 1024 / 1024 120 / 120 Output Total 2175 / 2425 675 / 975 500 / 500 Balance -2055 / -2305 349 / 49 -380 / -380 Lab / Micro Data Result Diagrams: 08/29/21 05:20 08/29/21 05:20 Labs: Laboratory Results - last 24 hr 08/26/21 14:45: SARS-CoV-2 IgM Ab Negative 08/28/21 16:22: POC Glucose 104 08/28/21 20:35: POC Glucose 120 H 08/29/21 05:20: WBC 9.3, RBC 3.91 L, Hgb 12.0, Hct 37.5, MCV 95.9, MCH 30.7, MCHC 32.0, RDW Std Deviation 50.0 H, RDW Coeff of Robert 14.1, Plt Count 341, MPV 10.4, Immature Gran % (Auto) 0.900, Neut % (Auto) 85.8 H, Lymph % (Auto) 10.8 L, [place] % (Auto) 2.3, Eos % (Auto) 0.0, Baso % (Auto) 0.2, Absolute Neuts (auto) 8.0 H, Absolute Lymphs (auto) 1.00, Nucleated RBC % 0.3, Differential Comment SCANNED 08/29/21 05:20: Sodium 145, Potassium 3.9, Chloride 111 H, Carbon Dioxide 29.0, Anion Gap 5, BUN 24 H, Creatinine 0.85, Estim Creat Clear Calc 58.95, Est GFR (MDRD) Af Amer 88, Est GFR (MDRD) Non-Af 73, BUN/Creatinine Ratio 28.2 H, Glucose 131 H, Calcium 8.6, Total Bilirubin 0.60, AST 76 H, ALT 49, Alkaline Phosphatase 96, Total Protein 5.7 L, Albumin 2.0 L, Globulin 3.7, Albumin/Globulin Ratio 0.5 L 08/29/21 06:55: POC Glucose 134 H Micro: Microbiology 08/25/21 16:00 Blood Culture (Wb) - Anticubital Right Blood Culture - Preliminary No growth in 48 hours. 08/25/21 16:00 Blood Culture (Wb) - Anticubital Right Blood Culture - Preliminary No growth in 48 hours. 08/25/21 23:00 Urine, Catheterized Urine Culture - Final Culture exhibits no growth. 08/25/21 Unknown Mucosa - Nasopharyngeal Respiratory Panel (PCR) - Final 08/25/21 23:00 Urine Catheter - Catheter Legionella Antigen - Final 08/25/21 23:00 Urine Catheter - Catheter Streptococcus pneumoniae Antigen (M - Final Physical Exam Const alert, oriented x3 and no apparent distress Constitutional Narrative: restless General Appearance: cooperative Orientation / Consciousness: confused Exam Limitations: no limitations Nutritional Appearance: obese HEENT normocephalic and head/scalp atraumatic Head and Scalp: normocephalic Eyes PERRL, EOMs intact bilaterally, conjunctivae normal and no scleral icterus Neck no lymphadenopathy and supple General: trachea midline Lymph Lymphatic: no lymphadenopathy noted Resp clear to auscultation bilaterally Resp Narrative: tachypneic, coarse crackles bibasally, no wheezes. On AirVo at FiO2 of 65% and 35L/min of oxygen. Auscultation: wheezes expiratory wheezes, anterior, posterior and throughout Cardio regular rate, regular rhythm, S1 normal heart sound, S2 normal heart sound and no murmurs GI normal to inspection, nondistended, normoactive bowel sounds, soft to palpation, non-tender and non-distended Extremity normal to inspection, full ROM, normal capillary refill and no clubbing, cyanosis or edema General Extremity: no tenderness to palpation of joints or extremities Peripheral Pulses: Yes pulses 2+ throughout Skin no rashes or lesions noted General Skin Exam: turgor normal Neuro CN's II-XII intact bilaterally, moves all extremities, no focal motor deficits and no sensory deficits noted Sensorium / Orientation: awake, orientation impaired and confused Psych Psych Narrative: restless, episodes of confusion Appearance: unkempt Attitude: bizarre Activity / Motor Behavior: restless Assessment & Plan Assessment/Plan (1) Acute respiratory failure with hypoxia: (2) Bilateral interstitial pneumonia: PLAN: #Acute hypoxic respiratory failure due to bilateral pneumonia * still on AirVo * remains on meropenem * blood and sputum cultures show no growth so far. * on IV solumedrol * critical care on board * titrate oxygen to maintain sats >90% * IV lasix started today. * #Acute metabolic encephalopathy due to bilateral pneumonia and acute hypoxic respiratory failure * patient's mentation is improving. * management as above. PT.OT on board. Fall precautions * * #Sepsis due to bilateral pneumonia and UTI * now on IV meropenem * blood and urine cultures negative so far. * covid test was negative * * #Elevated D dimer: CTA was negative for PE. #Atrial fibrillation * patient noted to be going into intermittent afib per nurses. Patient in sinus tachycardia at time of my review today * will monitor per telemetry for afib. * 2D echo showed EF of 55-60%, with normal left ventricle and normal right ventricle and still function. * Has not been noted to be in A. fib again. * #STEVEN on CKD 3: resolved # * #Hypernatremia: resolved. #Hypotension: Resolved. Will continue holding BP meds for now. #Lactic acidosis: resolved. #Bipolar disorder and depression: on citalopram and topiramate #Type 2 diabetes mellitus: metformin on hold due to lactic acidosis DVT prophylaxis: heparin Charges/Coding Visit Charges Inpatient E&M: 59028 Subs Hosp L2
[2021-08-29 12:36] LABS: Bedside Glucose 124 mg/dL (70-110)
[2021-08-29] MEDS: Insulin Lispro 100 UNIT/ML INSULN.PEN SC ×2 (17:18→21:33)
[2021-08-29 17:31] LABS: Bedside Glucose 179 mg/dL (70-110)
[2021-08-29] MEDS: Ipratropium/Albuterol Sulfate 3 ML AMPUL.NEB INHALATION (19:16)
[2021-08-29 21:46] LABS: Bedside Glucose 175 mg/dL (70-110)
[2021-08-30] VITALS (32 sets, daily range): BP systolic 88–121; BP diastolic 51–102; PULSE 61–125; RESP 18–24; TEMP 36.3–36.8; O2SAT 90–99
[2021-08-30] MEDS: Heparin Injection (Vial) 5,000 UNIT/ML VIAL 5000 UNIT SC ×2 (05:06→14:39)
[2021-08-30] MEDS: 0.9% Saline Lock 10 ML Syringe IV ×8 (05:06→22:26)
[2021-08-30] MEDS: Insulin Lispro 100 UNIT/ML INSULN.PEN SC ×4 (05:07→22:37)
[2021-08-30 05:45] LABS: Bedside Glucose 184 mg/dL (70-110)
[2021-08-30 05:56] LABS: Absolute Lymphocyte Count 1.19 X10^3/uL (0.83-4.51); Absolute Neutrophil Count 8.7 X10^3/uL (2.0-7.7); Basophil# 0.03 X10^3/uL; Basophil% 0.3 % (0-1); Hematocrit 40.6 % (37-47); Hemoglobin 13.3 g/dL (12.0-15.0); Lymphocyte # 1.19 X10^3/ul (0.83-4.51); Lymphocyte % 11.5 % (19-41); Mean Corp Hgb Conc 32.8 g/dL (32-36); Mean Corpuscular Hgb 31.7 pg (27.0-32.0); Mean Corpuscular Volume 96.9 fL (81-99); Mean Platelet Vol. 10.6 fl (6.2-12.0); Monocyte% 2.9 % (0-10); NRBC Flagged by Analyzer 0 % (0-5); Neutrophil # 8.73 X10^3/uL (2.7-7.7); Neutrophil % 84.3 % (47-70); POSITIVE MORPHOLOGY YES; Platelet Count 355 K/mm3 (150-450); RBC Distribution Width CV 13.7 % (11.6-14.6); RBC Distribution Width SD 48.9 fl (35.1-43.9); Red Blood Count 4.19 M/mm3 (4.2-5.4); White Blood Count 10.4 K/mm3 (4.4-11.0)
[2021-08-30 06:00] LABS: Differential Indicated SCAN CRITERIA MET
--- NOTE | 2021-08-30 06:40 | PCM.PN.INT ---
Assessment & Plan Assessment/Plan (1) Sepsis: PLAN: RECOMMENDATIONS: 1. Continue to wean supplemental oxygen to maintain saturations at or above 90%. 2. Continue broad-spectrum antimicrobials. 3. Dietary advancement per speech therapy recommendations. 4. Recommend empiric use of BiPAP therapy with naps and nightly. 5. Continue scheduled bronchodilators and steroids. 6. Continue appropriate DVT prophylaxis. IMPRESSIONS: 1. Sepsis Sepsis due to suspected pneumonia with acute sepsis related organ dysfunction as evidenced by acute respiratory failure necessitating noninvasive positive pressure ventilatory support, acute kidney injury and lactic acidemia. The patient does have an extensive smoking history and likely has underlying obstructive lung disease. For now, it is reasonable to continue antimicrobials along with scheduled bronchodilators and steroids. Plan to continue to wean supplemental oxygen to maintain saturations at or above 90%. Encourage incentive spirometer use and mobilize patient as tolerated. Over concerns for aspiration, the patient is currently on a modified diet and being followed by speech therapy. Plan to continue broad-spectrum antimicrobials as ordered. 2. Acute on chronic kidney disease Resolved. Likely prerenal in etiology and related to #1. Continue to monitor urine output. No current indication for renal replacement therapy. 3. Chronic tobacco dependency/questionable obstructive lung disease Smoking cessation counseling was provided. Nicotine replacement therapy can be offered to the patient while admitted to the hospital. The patient will be continued on supplemental oxygen along with scheduled bronchodilators and steroids. 4. Morbid obesity/hypertension/hyperlipidemia/diabetes mellitus/GERD/bipolar disorder Complicates care, management, recovery and prognosis. Continue home medications as indicated. This note was generated with [employer] dictation software. It may contain incorrect words, spelling, and punctuation that were not noted in checking the note before signing. Subjective Subjective The patient was seen and examined at the bedside this morning. Events from the last 24 hours have been reviewed. The patient is currently afebrile, hemodynamically stable and maintaining appropriate oxygen saturations on 10 L/min high flow nasal cannula. She is currently documented to be overall net +3.3 L for the hospitalization. The patient remains on antimicrobials, bronchodilators and steroids. Objective Data Objective Data The patient's most recent lab work, culture data and imaging studies have all been personally reviewed. Covid PCR was negative. Respiratory viral panel was negative. Strep and urine Legionella antigens were negative. Blood and urine cultures have demonstrated no growth to date. Vital Signs: Vital Signs Temp Pulse Resp BP Pulse Ox 98.3 F 79 18 117/87 H 94 08/30/21 03:30 08/30/21 03:30 08/30/21 03:30 08/30/21 03:30 08/30/21 03:30 Oxygen Flow Rate (L/min) 10 Oxygen Delivery Method High Flow Weight: 112.2 kg Body Mass Index (BMI) 43.7 Intake & Output: Intake and Output for Last 24 Hours 08/28/21 08/29/21 08/30/21 23:59 23:59 23:59 Intake Total 1024 / 1024 480 / 480 480 / 480 Output Total 675 / 975 1400 / 1400 300 / 300 Balance 349 / 49 -920 / -920 180 / 180 Lab / Micro Data Attestation: I reviewed the patient's lab results. Result Diagrams: 08/30/21 05:18 08/30/21 05:18 Labs: Laboratory Results - last 24 hr 08/29/21 05:20: Differential Comment SCANNED 08/29/21 05:20: Sodium 145, Potassium 3.9, Chloride 111 H, Carbon Dioxide 29.0, Anion Gap 5, BUN 24 H, Creatinine 0.85, Estim Creat Clear Calc 58.95, Est GFR (MDRD) Af Amer 88, Est GFR (MDRD) Non-Af 73, BUN/Creatinine Ratio 28.2 H, Glucose 131 H, Calcium 8.6, Total Bilirubin 0.60, AST 76 H, ALT 49, Alkaline Phosphatase 96, Total Protein 5.7 L, Albumin 2.0 L, Globulin 3.7, Albumin/Globulin Ratio 0.5 L 08/29/21 06:55: POC Glucose 134 H 08/29/21 12:26: POC Glucose 124 H 08/29/21 17:12: POC Glucose 179 H 08/29/21 21:31: POC Glucose 175 H 08/30/21 05:03: POC Glucose 184 H 08/30/21 05:18: WBC 10.4, RBC 4.19 L, Hgb 13.3, Hct 40.6, MCV 96.9, MCH 31.7, MCHC 32.8, RDW Std Deviation 48.9 H, RDW Coeff of Robert 13.7, Plt Count 355, MPV 10.6, Immature Gran % (Auto) 1.000 H, Neut % (Auto) 84.3 H, Lymph % (Auto) 11.5 L, [place] % (Auto) 2.9, Eos % (Auto) 0.0, Baso % (Auto) 0.3, Absolute Neuts (auto) 8.7 H, Absolute Lymphs (auto) 1.19, Nucleated RBC % 0 Micro: Microbiology 08/25/21 16:00 Blood Culture (Wb) - Anticubital Right Blood Culture - Preliminary No growth in 48 hours. 08/25/21 16:00 Blood Culture (Wb) - Anticubital Right Blood Culture - Preliminary No growth in 48 hours. 08/25/21 23:00 Urine, Catheterized Urine Culture - Final Culture exhibits no growth. 08/25/21 Unknown Mucosa - Nasopharyngeal Respiratory Panel (PCR) - Final 08/25/21 23:00 Urine Catheter - Catheter Legionella Antigen - Final 08/25/21 23:00 Urine Catheter - Catheter Streptococcus pneumoniae Antigen (M - Final Physical Exam Const alert General Appearance: cooperative Nutritional Appearance: morbidly obese HEENT normocephalic and head/scalp atraumatic Eyes PERRL, EOMs intact bilaterally and conjunctivae normal Neck supple General: trachea midline Resp Auscultation: diminished lung sounds; Negative for rales, rhonchi or wheezes Cardio regular rate, regular rhythm, S1 normal heart sound and S2 normal heart sound GI normal to inspection, nondistended, normoactive bowel sounds Extremity General Extremity: edema bilateral lower extremity Skin no rashes or lesions noted Neuro CN's II-XII intact bilaterally and no focal motor deficits Psych Mood & Affect: flat affect Charges/Coding Visit Charges Inpatient E&M: 56848 Subs Hosp L2
[2021-08-30 06:54] LABS: ALB/GLOB Ratio 0.6 RATIO (0.9-2.4); AST(SGOT) 79 U/L (15-37); Alanine Aminotransfer ALT/SGPT 66 U/L (13-56); Albumin, Serum 2.2 g/dL (3.2-5.0); Alkaline Phosphatase 86 U/L (45-117); Anion Gap 6 (5-15); BUN 30 mg/dL (7-18); BUN/Creat Ratio 28.3 RATIO (10-20); Calcium,Total 8.7 mg/dL (8.5-10.1); Chloride 109 mmol/L (98-107); Creatinine, Serum 1.06 mg/dL (0.55-1.02); EST Glomerular Filtration Rate 56 mL/min (>60); Est Glom Filt Rate - Afr Amer 68 mL/min (>60); Estimated Creatinine Clearance 47.27 ml/min; Glucose 168 mg/dL (74-106); Potassium 4.2 mmol/L (3.5-5.1); Protein, Total 6.2 g/dL (6.4-8.2); Sodium Level 142 mmol/L (136-145)
[2021-08-30] MEDS: Citalopram 10 MG Tablet PO (08:10)
[2021-08-30] MEDS: Fludrocortisone Acetate 0.1 MG Tablet PO (08:10)
[2021-08-30] MEDS: Amantadine 100 MG Capsule PO ×2 (08:11→22:29)
[2021-08-30] MEDS: QUEtiapine 100 MG Tablet 200 MG PO ×2 (08:11→22:29)
[2021-08-30] MEDS: Mirabegron 25 MG TAB.ER.24H PO (08:11)
[2021-08-30] MEDS: Pantoprazole Sodium 40 MG Tablet PO (08:11)
[2021-08-30] MEDS: Topiramate 25 MG Tablet PO ×2 (08:11→22:29)
[2021-08-30] MEDS: LORazepam 0.5 MG Tablet PO (09:31)
[2021-08-30 11:10] LABS: Bedside Glucose 177 mg/dL (70-110)
--- NOTE | 2021-08-30 11:49 | PN.HOSP_ITS ---
Subjective Subjective Patient seen and examined. She is feeling much better today. She has been weaned down to 10 L of oxygen by nasal cannula. She denies any cough, chest pain, palpitations, dizziness, nausea vomiting or diarrhea. Review of systems otherwise negative. Objective Data Objective Data Vital Signs: Vital Signs Temp Pulse Resp BP Pulse Ox 97.4 F L 86 18 115/91 H 94 08/30/21 09:30 08/30/21 09:30 08/30/21 09:30 08/30/21 09:30 08/30/21 09:30 Oxygen Flow Rate (L/min) 10 Oxygen Delivery Method High Flow Weight: 247 lb 5.738 oz Body Mass Index (BMI) 43.7 Intake & Output: Intake and Output for Last 24 Hours 08/28/21 08/29/21 08/30/21 23:59 23:59 23:59 Intake Total 1024 / 1024 480 / 480 480 / 480 Output Total 675 / 975 1400 / 1400 300 / 300 Balance 349 / 49 -920 / -920 180 / 180 Lab / Micro Data Result Diagrams: 08/30/21 05:18 08/30/21 05:18 Labs: Laboratory Results - last 24 hr 08/29/21 12:26: POC Glucose 124 H 08/29/21 17:12: POC Glucose 179 H 08/29/21 21:31: POC Glucose 175 H 08/30/21 05:03: POC Glucose 184 H 08/30/21 05:18: WBC 10.4, RBC 4.19 L, Hgb 13.3, Hct 40.6, MCV 96.9, MCH 31.7, MCHC 32.8, RDW Std Deviation 48.9 H, RDW Coeff of Robert 13.7, Plt Count 355, MPV 10.6, Immature Gran % (Auto) 1.000 H, Neut % (Auto) 84.3 H, Lymph % (Auto) 11.5 L, [place] % (Auto) 2.9, Eos % (Auto) 0.0, Baso % (Auto) 0.3, Absolute Neuts (auto) 8.7 H, Absolute Lymphs (auto) 1.19, Nucleated RBC % 0 08/30/21 05:18: Sodium 142, Potassium 4.2, Chloride 109 H, Carbon Dioxide 27.0, Anion Gap 6, BUN 30 H, Creatinine 1.06 H, Estim Creat Clear Calc 47.27, Est GFR (MDRD) Af Amer 68, Est GFR (MDRD) Non-Af 56 L, BUN/Creatinine Ratio 28.3 H, Glu cose 168 H, Calcium 8.7, Total Bilirubin 0.70, AST 79 H, ALT 66 H, Alkaline Phosphatase 86, Total Protein 6.2 L, Albumin 2.2 L, Globulin 4.0, Albumin/Globulin Ratio 0.6 L 08/30/21 11:06: POC Glucose 177 H Micro: Microbiology 08/25/21 16:00 Blood Culture (Wb) - Anticubital Right Blood Culture - Preliminary No growth in 48 hours. 08/25/21 16:00 Blood Culture (Wb) - Anticubital Right Blood Culture - Preliminary No growth in 48 hours. 08/25/21 23:00 Urine, Catheterized Urine Culture - Final Culture exhibits no growth. 08/25/21 Unknown Mucosa - Nasopharyngeal Respiratory Panel (PCR) - Final 08/25/21 23:00 Urine Catheter - Catheter Legionella Antigen - Final 08/25/21 23:00 Urine Catheter - Catheter Streptococcus pneumoniae Antigen (M - Final Physical Exam Const alert, oriented x3 and no apparent distress Constitutional Narrative: restless General Appearance: cooperative Exam Limitations: no limitations Nutritional Appearance: obese HEENT normocephalic and head/scalp atraumatic Head and Scalp: normocephalic Eyes PERRL, EOMs intact bilaterally, conjunctivae normal and no scleral icterus Neck no lymphadenopathy and supple General: trachea midline Lymph Lymphatic: no lymphadenopathy noted Resp clear to auscultation bilaterally Resp Narrative: Mildly diminished breath sounds bibasilarly. No wheezes or crackles. On 10L of oxygen by nasal canula Auscultation: wheezes expiratory wheezes, anterior, posterior and throughout Cardio regular rate, regular rhythm, S1 normal heart sound, S2 normal heart sound and no murmurs GI normal to inspection, nondistended, normoactive bowel sounds, soft to palpation, non-tender and non-distended Extremity normal to inspection, full ROM, normal capillary refill and no clubbing, cyanosis or edema General Extremity: no tenderness to palpation of joints or extremities Peripheral Pulses: Yes pulses 2+ throughout Skin no rashes or lesions noted General Skin Exam: turgor normal Neuro CN's II-XII intact bilaterally, moves all extremities, no focal motor deficits and no sensory deficits noted Sensorium / Orientation: awake, alert, orientation impaired and confused Psych Psych Narrative: restless, though she is much calmer now Appearance: unkempt Attitude: bizarre Activity / Motor Behavior: restless Assessment & Plan Assessment/Plan (1) Acute respiratory failure with hypoxia: (2) Bilateral interstitial pneumonia: PLAN: #Acute hypoxic respiratory failure due to bilateral pneumonia * Has been weaned down to 10 L of oxygen by nasal cannula * on meropenem * blood and sputum cultures show no growth so far. * on IV solumedrol * critical care on board * titrate oxygen to maintain sats >90% * Was given some Lasix yesterday. * In cumulative positive balance by 2.3 L. We will give some more Lasix today. * #Acute metabolic encephalopathy due to bilateral pneumonia and acute hypoxic res piratory failure * patient's mentation is improving. * management as above. PT.OT on board. Fall precautions * #Sepsis due to bilateral pneumonia and UTI * now on IV meropenem * blood and urine cultures negative so far. * covid test was negative * * #Elevated D dimer: CTA was negative for PE. #Paroxysmal Atrial fibrillation * patient noted to be going into intermittent afib per nurses. Patient in sinus tachycardia at time of my review today * will monitor per telemetry for afib. * 2D echo showed EF of 55-60%, with normal left ventricle and normal right ventricle and still function. * Has not been noted to be in A. fib again. * #STEVEN on CKD 3: resolved #Hypernatremia: resolved. #Hypotension: * Resolved. Blood pressure has been 110-120 systolic. * We will therefore keep on holding blood pressure medications for now. #Lactic acidosis: resolved. #Bipolar disorder and depression: on citalopram and topiramate #Type 2 diabetes mellitus: metformin on hold due to lactic acidosis DVT prophylaxis: heparin Charges/Coding Visit Charges Inpatient E&M: 25302 Subs Hosp L2
[2021-08-30] MEDS: Ipratropium/Albuterol Sulfate 3 ML AMPUL.NEB INHALATION ×2 (14:10→19:33)
--- NOTE | 2021-08-30 15:38 | EKG12_ITS ---
Test Reason : HIGH HR Blood Pressure : / mmHG Vent. Rate : 160 BPM Atrial Rate : 178 BPM P-R Int : 000 ms QRS Dur : 082 ms QT Int : 266 ms P-R-T Axes : 000 005 011 degrees QTc Int : 434 ms Atrial fibrillation Nonspecific ST abnormality Abnormal ECG Confirmed by LUH GUSTAFSON, KATARZYNA ([id number]), news videotape editor JIGNA TERRAZAS ([id number]) on 09/01/2021 1:20:25 PM Referred By: INES Confirmed By:KATARZYNA ARVIZU MD
[2021-08-30] MEDS: dilTIAZem 25 MG/5 ML Vial 20 MG IV BOLUS (16:13)
[2021-08-30] MEDS: Metoprolol Tartrate 25 MG Tablet PO (16:28)
[2021-08-30] MEDS: APIXABAN 5 MG TABLET PO ×2 (16:28→22:28)
[2021-08-30 16:40] LABS: Bedside Glucose 178 mg/dL (70-110)
[2021-08-30] MEDS: Furosemide 40 MG/4 ML Vial IV (16:40)
[2021-08-30] MEDS: Sodium Chloride 0.65% 1 SPRAY SPRAY.BTL 2 SPRAY NASAL (21:05)
[2021-08-30] MEDS: Menthol/Lanolin/Calamine/Znox 113 GM Tube 1 APPLIC TOPICAL (21:05)
[2021-08-30 22:45] LABS: Bedside Glucose 195 mg/dL (70-110)
[2021-08-31] VITALS (28 sets, daily range): BP systolic 91–111; BP diastolic 53–98; PULSE 55–98; RESP 13–24; TEMP 36–36.6; O2SAT 87–97
[2021-08-31] MEDS: LORazepam 0.5 MG Tablet PO (04:00)
[2021-08-31] MEDS: 0.9% Saline Lock 10 ML Syringe IV ×3 (05:52→21:11)
[2021-08-31 06:23] LABS: Absolute Lymphocyte Count 1.07 X10^3/uL (0.83-4.51); Absolute Neutrophil Count 9.5 X10^3/uL (2.0-7.7); Basophil# 0.03 X10^3/uL; Basophil% 0.3 % (0-1); Hematocrit 41.5 % (37-47); Hemoglobin 13.5 g/dL (12.0-15.0); Lymphocyte # 1.07 X10^3/ul (0.83-4.51); Lymphocyte % 9.7 % (19-41); Mean Corp Hgb Conc 32.5 g/dL (32-36); Mean Corpuscular Volume 95.4 fL (81-99); Mean Platelet Vol. 10.9 fl (6.2-12.0); Monocyte# 0.32 X10^3/uL; Monocyte% 2.9 % (0-10); NRBC Flagged by Analyzer 0 % (0-5); Neutrophil # 9.46 X10^3/uL (2.7-7.7); Neutrophil % 85.7 % (47-70); POSITIVE MORPHOLOGY YES; Platelet Count 349 K/mm3 (150-450); RBC Distribution Width CV 13.4 % (11.6-14.6); RBC Distribution Width SD 47.3 fl (35.1-43.9); Red Blood Count 4.35 M/mm3 (4.2-5.4)
[2021-08-31 06:27] LABS: Differential Indicated SCAN CRITERIA MET
[2021-08-31 06:51] LABS: ALB/GLOB Ratio 0.6 RATIO (0.9-2.4); AST(SGOT) 65 U/L (15-37); Alanine Aminotransfer ALT/SGPT 64 U/L (13-56); Albumin, Serum 2.1 g/dL (3.2-5.0); Alkaline Phosphatase 90 U/L (45-117); Anion Gap 6 (5-15); BUN 31 mg/dL (7-18); BUN/Creat Ratio 35.3 RATIO (10-20); Calcium,Total 8.6 mg/dL (8.5-10.1); Chloride 107 mmol/L (98-107); Creatinine, Serum 0.88 mg/dL (0.55-1.02); EST Glomerular Filtration Rate 70 mL/min (>60); Est Glom Filt Rate - Afr Amer 85 mL/min (>60); Estimated Creatinine Clearance 56.94 ml/min; Globulin 3.8 g/dL (2.2-4.2); Glucose 144 mg/dL (74-106); Potassium 4.5 mmol/L (3.5-5.1); Protein, Total 5.9 g/dL (6.4-8.2); Sodium Level 141 mmol/L (136-145)
[2021-08-31] MEDS: Insulin Lispro 100 UNIT/ML INSULN.PEN SC ×4 (07:00→21:27)
[2021-08-31 07:01] LABS: Differential Comment SCANNED
[2021-08-31 07:05] LABS: Bedside Glucose 164 mg/dL (70-110)
--- NOTE | 2021-08-31 10:01 | PN.CC_ITS ---
Assessment & Plan Assessment/Plan (1) Sepsis: PLAN: RECOMMENDATIONS: 1. Continue to wean supplemental oxygen to maintain saturations at or above 90%. 2. Continue broad-spectrum antimicrobials to complete 7 days. 3. Dietary advancement per speech therapy recommendations. 4. Recommend empiric use of BiPAP therapy with naps and nightly. 5. Continue scheduled bronchodilators and steroids. 6. Continue appropriate DVT prophylaxis. IMPRESSIONS: 1. Sepsis Sepsis due to suspected pneumonia with acute sepsis related organ dysfu nction as evidenced by acute respiratory failure necessitating noninvasive positive pressure ventilatory support, acute kidney injury and lactic acidemia. The patient does have an extensive smoking history and likely has underlying obstructive lung disease. For now, it is reasonable to continue antimicrobials for 7 days along with scheduled bronchodilators and steroids. Likely wean steroids once oxygenation improves. Plan to continue to wean supplemental oxygen to maintain saturations at or above 90%. Encourage incentive spirometer use and mobilize patient as tolerated. Over concerns for aspiration, the patient is currently on a modified diet and being followed by speech therapy. 2. Acute on chronic kidney disease Resolved. Likely prerenal in etiology and related to #1. Continue to monitor urine output. No current indication for renal replacement therapy. Diuretic therapy is somewhat complicated given patient's marginal blood pressures. 3. Chronic tobacco dependency/questionable obstructive lung disease Smoking cessation counseling was provided. Nicotine replacement therapy can be offered to the patient while admitted to the hospital. The patient will be continued on supplemental oxygen along with scheduled bronchodilators and steroids. Patient likely will require a 12 to 14-day taper with outpatient follow-up for quantification clarification of lung function. 4. Morbid obesity/hypertension/hyperlipidemia/diabetes mellitus/GERD/bipolar disorder Complicates care, management, recovery and prognosis. Continue home medications as indicated. This note was generated with [employer] dictation software. It may contain incorrect words, spelling, and punctuation that were not noted in checking the note before signing. Subjective Subjective Patient did okay overnight. Patient subjectively feels improved compared to yesterday. Patient still has dyspnea on exertion, but overall feels her breathing is improved. Patient is not reporting any significant cough. Patient's oxygen requirements have improved overnight. Objective Data Objective Data Vital Signs: Vital Signs Temp Pulse Resp BP Pulse Ox 36.6 C 73 13 91/58 L 90 08/31/21 03:00 08/31/21 09:00 08/31/21 09:00 08/31/21 09:00 08/31/21 09:00 Oxygen Flow Rate (L/min) 9 Oxygen Delivery Method High Flow Weight: 114.2 kg Body Mass Index (BMI) 43.7 Intake & Output: Intake and Output for Last 24 Hours 08/29/21 08/30/21 08/31/21 23:59 23:59 23:59 Intake Total 480 / 480 853.25 / 863.25 435.00 / 435.00 Output Total 1400 / 1400 1850 / 1850 1150 / 1150 Balance -920 / -920 -996.75 / -986.75 -715.00 / -715.00 Lab / Micro Data Result Diagrams: 08/31/21 05:25 08/31/21 05:25 Labs: Laboratory Results - last 24 hr 08/30/21 11:06: POC Glucose 177 H 08/30/21 16:33: POC Glucose 178 H 08/30/21 22:36: POC Glucose 195 H 08/31/21 05:25: WBC 11.0, RBC 4.35, Hgb 13.5, Hct 41.5, MCV 95.4, MCH 31.0, MCHC 32.5, RDW Std Deviation 47.3 H, RDW Coeff of Robert 13.4, Plt Count 349, MPV 10.9, Immature Gran % (Auto) 1.400 H, Neut % (Auto) 85.7 H, Lymph % (Auto) 9.7 L, [place] % (Auto) 2.9, Eos % (Auto) 0.0, Baso % (Auto) 0.3, Absolute Neuts (auto) 9.5 H, Absolute Lymphs (auto) 1.07, Nucleated RBC % 0, Differential Comment SCANNED 08/31/21 05:25: Sodium 141, Potassium 4.5, Chloride 107, Carbon Dioxide 28.0, Anion Gap 6, BUN 31 H, Creatinine 0.88, Estim Creat Clear Calc 56.94, Est GFR (MDRD) Af Amer 85, Est GFR (MDRD) Non-Af 70, BUN/Creatinine Ratio 35.3 H, Glucose 144 H, Calcium 8.6, Total Bilirubin 0.60, AST 65 H, ALT 64 H, Alkaline Phosphatase 90, Total Protein 5.9 L, Albumin 2.1 L, Globulin 3.8, Albumin/Globulin Ratio 0.6 L 08/31/21 06:59: POC Glucose 164 H Micro: Microbiology 08/25/21 16:00 Blood Culture (Wb) - Anticubital Right Blood Culture - Final No growth in 5 days. 08/25/21 16:00 Blood Culture (Wb) - Anticubital Right Blood Culture - Final No growth in 5 days. 08/25/21 23:00 Urine, Catheterized Urine Culture - Final Culture exhibits no growth. 08/25/21 Unknown Mucosa - Nasopharyngeal Respiratory Panel (PCR) - Final 08/25/21 23:00 Urine Catheter - Catheter Legionella Antigen - Final 08/25/21 23:00 Urine Catheter - Catheter Streptococcus pneumoniae Antigen (M - Final Physical Exam Const alert General Appearance: cooperative Nutritional Appearance: morbidly obese HEENT normocephalic and head/scalp atraumatic Eyes PERRL, EOMs intact bilaterally and conjunctivae normal Neck supple General: trachea midline Chest inspection of chest normal Resp Auscultation: diminished lung sounds; Negative for rales, rhonchi or wheezes Cardio regular rate, regular rhythm, S1 normal heart sound and S2 normal heart sound GI normal to inspection, nondistended, normoactive bowel sounds Extremity General Extremity: edema bilateral lower extremity; Negative for clubbing or cyanosis Skin no rashes or lesions noted Neuro CN's II-XII intact bilaterally and no focal motor deficits Psych Mood & Affect: flat affect Charges/Coding Visit Charges Inpatient E&M: 14481 Subs Hosp L2
[2021-08-31] MEDS: Amantadine 100 MG Capsule PO ×2 (10:02→21:18)
[2021-08-31] MEDS: Pantoprazole Sodium 40 MG Tablet PO (10:02)
[2021-08-31] MEDS: Fludrocortisone Acetate 0.1 MG Tablet PO (10:02)
[2021-08-31] MEDS: Citalopram 10 MG Tablet PO (10:02)
[2021-08-31] MEDS: Mirabegron 25 MG TAB.ER.24H PO (10:03)
[2021-08-31] MEDS: APIXABAN 5 MG TABLET PO ×2 (10:03→21:17)
[2021-08-31] MEDS: Topiramate 25 MG Tablet PO ×2 (10:03→21:16)
[2021-08-31] MEDS: QUEtiapine 100 MG Tablet 200 MG PO ×2 (10:04→21:17)
[2021-08-31] MEDS: Menthol/Lanolin/Calamine/Znox 113 GM Tube 1 APPLIC TOPICAL ×2 (10:04→21:19)
[2021-08-31] MEDS: Ipratropium/Albuterol Sulfate 3 ML AMPUL.NEB INHALATION ×2 (11:24→19:17)
[2021-08-31 12:36] LABS: Bedside Glucose 202 mg/dL (70-110)
--- NOTE | 2021-08-31 15:16 | SP.MBSS_ITS ---
Modified Barium Swallow - Patient Information Study Date: 08/31/21 Study Time: 14:30 Direct Billable Minutes: 80 Total Minutes procedure & reportin Diagnosis: Acute respiratory failure with hypoxia (J96.01) Referring Physician: Guevara Collins Reason for Referral: Objectively assess swallow function, risk for aspiration, and determine recommendations for least restrictive diet texture and compensatory strategies to improve safety of swallow. Medical History: PERNELL FISHER, is a 61 F with PMH below who presented to [facility] ED 08/25/2021 with complaints of shortness of breath. Patient symptoms reportedly started approximately 2 weeks ago however patient is unable to clearly answer questions. It is noted that patient's pulse ox was 69% on room air upon arrival to ER. Patient admitted to manage acute respiratory failure, bilateral interstitial pneumonia, and sepsis. Referred for speech consult to assess aspiration risk. She was recommended for minced and moist textures / thin liquids with direct supervision for all intake to ensure use of aspiration precautions. Pt referred for MBS study to objectively assess aspiration risk. Medical History (Updated 08/25/21 @ 19:44 by Mone Dupont, FUENTES-C) Arthritis Asthma Diabetes Frequent headaches Gastrointestinal problem Heart disease History of back problems Hyperlipidemia IBS (irritable bowel syndrome) Migraines Stroke Chest CTA 08/26/21 09:57 IMPRESSION: No evidence of pulmonary embolism. Diffuse bilateral pulmonary infiltrates as described. Current Diet Ordered: Minced and moist textures / Thin liquids Dentition: WNL Mental Status: WNL Respiratory Status: Oxygenating on 4L/M nasal cannula - 8L O2/min via nasal cannula - Penetration-Aspiration Scale Penetration-Aspiration Scale: OBJECTIVE ASSESSMENT OF SWALLOW FUNCTION (QUANTITATIVE ? PER TRIAL): PENETRATION / ASPIRATION SCALE (RUST): 1 = does not enter airway 2 = enters airway/above vocal folds/ejected 3 = enters airway/above vocal folds/not ejected 4 = enters airway/contacts vocal folds/ejected 5 = enters airway/contacts vocal folds/not ejected 6 = enters airway/below vocal folds/ejected 7 = enters airway/below vocal folds/not ejected despite effort 8 = enters airway/below vocal folds/no effort - Penetration-Aspiration Scale Score Thin Liquid via teaspoon Result: 2= enter airway/above vocal folds/ejected Thin Liquid via teaspoon Trial 2 Result: 7= enters airways/below vocal folds/not ejected despite effort Thin Liquid via small single sip from cup Result: 2= enter airway/above vocal folds/ejected Thin Liquid via small single sip from cup Trial 2 Result: 2= enter airway/above vocal folds/ejected Crows Nest Thick Liquid via small single sip from cup Result: 1= does not enter airway Honey Thick Liquid via small single sip from cup Result: 1= does not enter airway Pudding Result: 1= does not enter airway Cookie Result: 1= does not enter airway Comment: Severely prolonged mastication (~ 1 minute and 40 seconds) for 1/4 Linda Job Shortbread cookie coated in pudding. Thin Liquid via small single sip from cup Trial 3 Result: 2= enter airway/above vocal folds/ejected Thin Liquid via single sip from straw Result: 3= enters airways/above vocal folds/not ejected Thin Liquid via small single sip from cup Trial 4 Result: 5= enters airways/contacts vocal folds/not ejected C[place] Nest Thick Liquid via small single sip from cup Trial 2 Result: 1= does not enter airway [place] Nest Thick Liquid via small single sip from cup Trial 3 Result: 1= does not enter airway - Oral Phase Labial Seal: Escape progressing to mid-chin Tongue Control During Bolus Hold: Posterior escape of greater than half of bolus Bolus Preparation/Mastication: Disorganized chewing/mashing with solid pieces of bolus unchewed Bolus Transport/Lingual Motion: Repetitive/disorganized tongue motion Oral Residue: Residue collection on oral structures - Pharyngeal Phase Initiation of Pharyngeal Swallow: Bolus head in pyriforms Soft Palate Elevation: Trace column of contrast/air between soft palate and pharyngeal wall Laryngeal Elevation: Partial superior movement thyroid cart/partial apprx aryt- epig petiole Anterior Hyoid Excursion: Partial anterior movement Epiglottic Movement: Partial inversion Laryngeal Vestibule Closure at Height of Swallow: Incomplete; narrow column of air/contrast in laryngeal vestibule Pharyngeal Stripping Wave: Present - diminished Pharyngoesophageal Segment Opening: Parital distension and partial duration; parital obstruction of flow Tongue Base Retraction: Narrow column of contrast between tongue base & post. pharyngeal wall Pharyngeal Residue: Collection of residue within or on pharyngeal structures - Diagnosis/Impression Diagnosis: Mild-moderate oropharyngeal phase dysphagia (R13.12) Impression: The oral phase is marked by moderate-severe impairments in mastication. The patient required ~ 1 min and 40 seconds to masticate 1/4 Linda Doone shortbread cookie. She presented with impaired lingual transport characterized by lingual pumping. She had mild-moderate oral residues after the swallow. She has delayed swallow onset with posterior pharyngeal spillage especially noted with thin liquids to the pyriforms. On one occasion, the patient had posterior spillage of sip of thin liquids via tsp to the vocal folds during the swallow with resulting aspiration. The pharyngeal phase is marked by moderate impairments in airway closure. The patient has decreased anterior hyoid excursion and laryngeal elevation. The patient demonstrated aspiration of thin liquids with cough reflex initiated; however, pt unable to eject aspirated contrast from the laryngeal vestibule. She also demonstrated penetration of thin liquids via cup to the vocal folds with no cough reflex initiated to clear the contrast from the laryngeal vestibule. SEE PAS scores above for full details. The patient presents with decreased pharyngeal contraction and UES opening resulting in mild pharyngeal residues after the swallow. - Recommendations Diet: Mechanical Soft Textures - Minced and Moist (IDDSI Level 5) Textures, [place]-thick Liquids Compensatory Strategies: Small Bites, Small Sips, No Straws, Slow Rate - Sips one at a time, Sitting upright, Remain sitting upright for 30 minutes after PO intake Recommend Repeat Modified Barium Swallow: Yes Comment: Repeat MBS study 4-8 weeks after implementation of oropharyngeal exercise program. Need for Skilled Speech Therapy Services: Yes Comment: Will recommend the patient for outpatient dysphagia therapy to address deficits in oropharyngeal swallow function. Would consider the patient for oropharyngeal strengthening to improve lingual control, hyolaryngeal elevation and excursion, tongue base retraction, and duration of UES opening. The patient would benefit from thorough education regarding diet recommendations and recommended compensatory strategies. Would consider the patient for implementation of Maya Free Water Protocol (FFWP) to encourage hydration and promote increased opportunities for swallowing throughout the patient?s day. Education Completed: 1. Described result of evaluation., 7. Pt requires further education on strategies & risks. - Status Active ST Patient: Active - Contact Information [facility] Speech Therapy:: Blanca Galeana M.A. [facility] [facility] Speech-Language Pathologist [facility] [id number] [place] [address] [email or web address] [phone] 08/31/21 15:51
--- NOTE | 2021-08-31 15:43 | PN.HOSP_ITS ---
Subjective Subjective Well, no issues overnight. She has feels better than yesterday she still requiring high amount of oxygen at around 9 L nasal cannula. And she is intermittently getting tachycardic whenever she is getting up and working with physical therapy but otherwise heart rate is controlled. Objective Data Objective Data Vital Signs: Vital Signs Temp Pulse Resp BP Pulse Ox 97 F L 83 20 H 106/56 L 96 08/31/21 14:03 08/31/21 14:03 08/31/21 14:03 08/31/21 14:03 08/31/21 14:03 Oxygen Flow Rate (L/min) 7 Oxygen Delivery Method Nasal Cannula Weight: 251 lb 12.286 oz Body Mass Index (BMI) 43.7 Intake & Output: Intake and Output for Last 24 Hours 08/30/21 08/31/21 09/01/21 03:59 03:59 03:59 Intake Total 480 / 480 893.25 / 903.25 648.75 / 648.75 Output Total 1100 / 1100 1850 / 1850 1450 / 1450 Balance -620 / -620 -956.75 / -946.75 -801.25 / -801.25 Lab / Micro Data Result Diagrams: 08/31/21 05:25 08/31/21 05:25 Labs: Laboratory Results - last 24 hr 08/30/21 16:33: POC Glucose 178 H 08/30/21 22:36: POC Glucose 195 H 08/31/21 05:25: WBC 11.0, RBC 4.35, Hgb 13.5, Hct 41.5, MCV 95.4, MCH 31.0, MCHC 32.5, RDW Std Deviation 47.3 H, RDW Coeff of Robert 13.4, Plt Count 349, MPV 10.9, Immature Gran % (Auto) 1.400 H, Neut % (Auto) 85.7 H, Lymph % (Auto) 9.7 L, [place] % (Auto) 2.9, Eos % (Auto) 0.0, Baso % (Auto) 0.3, Absolute Neuts (auto) 9.5 H, Absolute Lymphs (auto) 1.07, Nucleated RBC % 0, Differential Comment SCANNED 08/31/21 05:25: Sodium 141, Potassium 4.5, Chloride 107, Carbon Dioxide 28.0, Anion Gap 6, BUN 31 H, Creatinine 0.88, Estim Creat Clear Calc 56.94, Est GFR (MDRD) Af Amer 85, Est GFR (MDRD) Non-Af 70, BUN/Creatinine Ratio 35.3 H, Glucose 144 H, Calcium 8.6, Total Bilirubin 0.60, AST 65 H, ALT 64 H, Alkaline Phosphatase 90, Total Protein 5.9 L, Albumin 2.1 L, Globulin 3.8, Albumin/Globu david Ratio 0.6 L 08/31/21 06:59: POC Glucose 164 H 08/31/21 12:12: POC Glucose 202 H Micro: Microbiology 08/25/21 16:00 Blood Culture (Wb) - Anticubital Right Blood Culture - Final No growth in 5 days. 08/25/21 16:00 Blood Culture (Wb) - Anticubital Right Blood Culture - Final No growth in 5 days. 08/25/21 23:00 Urine, Catheterized Urine Culture - Final Culture exhibits no growth. 08/25/21 Unknown Mucosa - Nasopharyngeal Respiratory Panel (PCR) - Final 08/25/21 23:00 Urine Catheter - Catheter Legionella Antigen - Final 08/25/21 23:00 Urine Catheter - Catheter Streptococcus pneumoniae Antigen (M - Final Physical Exam Const alert, oriented x3 and no apparent distress General Appearance: cooperative Nutritional Appearance: morbidly obese HEENT normocephalic and moist oral mucous membranes Eyes PERRL, EOMs intact bilaterally and conjunctivae normal Neck supple and no JVD Resp normal respiratory effort, no retractions and no use of accessory muscles Auscultation: diminished lung sounds; Negative for crackles, rales, rhonchi or wheezes Cardio regular rate, regular rhythm, S1 normal heart sound, S2 normal heart sound and no murmurs GI soft to palpation, non-tender and non-distended; Negative for hepatosplenomegaly Extremity General Extremity: edema; Negative for clubbing or cyanosis Skin no rashes or lesions noted Neuro no focal motor deficits and no sensory deficits noted Psych Mood & Affect: flat affect Assessment & Plan Assessment/Plan (1) Acute respiratory failure with hypoxia: (2) Bilateral interstitial pneumonia: PLAN: #Acute hypoxic respiratory failure due to bilateral pneumonia * Has been weaned down to 7 L of oxygen by nasal cannula * on meropenem, continue for total of 7 days * blood and sputum cultures show no growth so far. * on IV solumedrol * critical care on board * titrate oxygen to maintain sats >90% * Was given some Lasix yesterday and this morning * In cumulative positive balance by 1.5 L. #Acute metabolic encephalopathy due to bilateral pneumonia and acute hypoxic respiratory failure * Encephalopathy has resolved #Sepsis due to bilateral pneumonia/STEVEN on CKD 3a * now on IV meropenem, UTI ruled out * blood and urine cultures negative so far. * covid test was negative * We will continue to monitor, STEVEN has resolved #Elevated D dimer: CTA was negative for PE. #Paroxysmal Atrial fibrillation * patient noted to be going into intermittent afib per nurses. We will discontinue her Cardizem drip and transition to p.o. metoprolol and adjust as necessary * will monitor per telemetry for afib. * 2D echo showed EF of 55-60%, with normal left ventricle and normal right ventricle and still function. * Has not been noted to be in A. fib again. #Bipolar disorder and depression: on citalopram and topiramate #Type 2 diabetes mellitus: metformin on hold due to lactic acidosis * Accu-Cheks AC at bedtime, continue with sliding scale insulin. Will make adjustments as necessary DVT: heparin Charges/Coding Visit Charges Inpatient E&M: 30656 Subs Hosp L2
--- NOTE | 2021-08-31 16:16 | EKG12_ITS ---
Test Reason : RYTHMN CHANGE Blood Pressure : / mmHG Vent. Rate : 071 BPM Atrial Rate : 071 BPM P-R Int : 126 ms QRS Dur : 084 ms QT Int : 398 ms P-R-T Axes : 062 006 053 degrees QTc Int : 432 ms Normal sinus rhythm Normal ECG Confirmed by LUH GUSTAFSON, KATARZYNA ([id number]), fan mail editor JIGNA TERRAZAS ([id number]) on 09/02/2021 12:46:13 PM Referred By: INES Confirmed By:KATARZYNA ARVZIU MD
[2021-08-31 17:06] LABS: Bedside Glucose 223 mg/dL (70-110)
--- NOTE | 2021-08-31 20:21 | CPS ---
o2 increased to 10l/m and water changed
[2021-08-31] MEDS: Metoprolol Tartrate 25 MG Tablet PO (21:16)
[2021-08-31 21:35] LABS: Bedside Glucose 196 mg/dL (70-110)
[2021-09-01] VITALS (17 sets, daily range): BP systolic 103–120; BP diastolic 51–74; PULSE 51–79; RESP 16–24; TEMP 36.1–36.6; O2SAT 93–99
[2021-09-01 06:21] LABS: Absolute Lymphocyte Count 0.95 X10^3/uL (0.83-4.51); Absolute Neutrophil Count 8.4 X10^3/uL (2.0-7.7); Basophil# 0.01 X10^3/uL; Basophil% 0.1 % (0-1); Hemoglobin 12.6 g/dL (12.0-15.0); Lymphocyte # 0.95 X10^3/ul (0.83-4.51); Lymphocyte % 9.5 % (19-41); Mean Corp Hgb Conc 32.3 g/dL (32-36); Mean Corpuscular Hgb 30.5 pg (27.0-32.0); Mean Corpuscular Volume 94.4 fL (81-99); Mean Platelet Vol. 10.9 fl (6.2-12.0); Monocyte# 0.48 X10^3/uL; Monocyte% 4.8 % (0-10); NRBC Flagged by Analyzer 0.2 % (0-5); Neutrophil % 84.5 % (47-70); POSITIVE MORPHOLOGY YES; Platelet Count 344 K/mm3 (150-450); RBC Distribution Width CV 13.5 % (11.6-14.6); RBC Distribution Width SD 47.2 fl (35.1-43.9); Red Blood Count 4.13 M/mm3 (4.2-5.4)
[2021-09-01 06:31] LABS: Differential Indicated SCAN CRITERIA MET
[2021-09-01] MEDS: 0.9% Saline Lock 10 ML Syringe IV ×2 (06:37→10:06)
[2021-09-01 06:38] LABS: Anion Gap 3 (5-15); BUN 32 mg/dL (7-18); BUN/Creat Ratio 36.5 RATIO (10-20); Calcium,Total 8.5 mg/dL (8.5-10.1); Chloride 110 mmol/L (98-107); Creatinine, Serum 0.88 mg/dL (0.55-1.02); EST Glomerular Filtration Rate 70 mL/min (>60); Est Glom Filt Rate - Afr Amer 85 mL/min (>60); Estimated Creatinine Clearance 56.94 ml/min; Glucose 158 mg/dL (74-106); Potassium 4.8 mmol/L (3.5-5.1); Sodium Level 143 mmol/L (136-145)
[2021-09-01] MEDS: Insulin Lispro 100 UNIT/ML INSULN.PEN SC ×4 (06:42→22:33)
[2021-09-01 06:49] LABS: Atypical Lymphocyte RARE %; Differential Comment SCANNED
[2021-09-01 06:50] LABS: Bedside Glucose 165 mg/dL (70-110)
[2021-09-01] MEDS: Ipratropium/Albuterol Sulfate 3 ML AMPUL.NEB INHALATION ×4 (07:14→21:08)
[2021-09-01] MEDS: Citalopram 10 MG Tablet PO (09:59)
[2021-09-01] MEDS: Fludrocortisone Acetate 0.1 MG Tablet PO (09:59)
[2021-09-01] MEDS: Mirabegron 25 MG TAB.ER.24H PO (09:59)
[2021-09-01] MEDS: Amantadine 100 MG Capsule PO ×2 (09:59→22:22)
[2021-09-01] MEDS: Topiramate 25 MG Tablet PO ×2 (10:00→22:14)
[2021-09-01] MEDS: Pantoprazole Sodium 40 MG Tablet PO (10:00)
[2021-09-01] MEDS: QUEtiapine 100 MG Tablet 200 MG PO ×2 (10:00→22:18)
[2021-09-01] MEDS: APIXABAN 5 MG TABLET PO ×2 (10:00→22:15)
[2021-09-01] MEDS: Metoprolol Tartrate 25 MG Tablet PO ×2 (10:01→22:16)
[2021-09-01] MEDS: Menthol/Lanolin/Calamine/Znox 113 GM Tube 1 APPLIC TOPICAL ×2 (10:06→22:15)
--- NOTE | 2021-09-01 10:26 | PN.HOSP_ITS ---
Subjective Subjective Feels better, no issues overnight. She is in normal sinus rhythm now no longer tachycardic. She needs 9 L when sleeping and then she is able to come down to 7 L. She would benefit by wearing BiPAP at night Objective Data Objective Data Vital Signs: Vital Signs Temp Pulse Resp BP Pulse Ox 97.6 F L 64 16 111/52 L 93 09/01/21 08:03 09/01/21 10:01 09/01/21 08:03 09/01/21 10:01 09/01/21 08:03 Oxygen Flow Rate (L/min) 7 Oxygen Delivery Method Nasal Cannula Weight: 248 lb 7.375 oz Body Mass Index (BMI) 43.7 Intake & Output: Intake and Output for Last 24 Hours 08/31/21 09/01/21 09/02/21 03:59 03:59 03:59 Intake Total 893.25 / 903.25 1208.75 / 1208.75 120 / 120 Output Total 1850 / 1850 2220 / 2220 500 / 500 Balance -956.75 / -946.75 -1011.25 / -1011.25 -380 / -380 Lab / Micro Data Result Diagrams: 09/01/21 05:25 09/01/21 05:25 Labs: Laboratory Results - last 24 hr 08/31/21 12:12: POC Glucose 202 H 08/31/21 16:49: POC Glucose 223 H 08/31/21 21:21: POC Glucose 196 H 09/01/21 05:25: WBC 10.0, RBC 4.13 L, Hgb 12.6, Hct 39.0, MCV 94.4, MCH 30.5, MCHC 32.3, RDW Std Deviation 47.2 H, RDW Coeff of Robert 13.5, Plt Count 344, MPV 10.9, Immature Gran % (Auto) 1.100 H, Neut % (Auto) 84.5 H, Lymph % (Auto) 9.5 L , [place] % (Auto) 4.8, Eos % (Auto) 0.0, Baso % (Auto) 0.1, Absolute Neuts (auto) 8.4 H, Absolute Lymphs (auto) 0.95, Nucleated RBC % 0.2, Differential Comment SCANNED, Atypical Lymphocytes RARE 09/01/21 05:25: Sodium 143, Potassium 4.8, Chloride 110 H, Carbon Dioxide 30.0, Anion Gap 3 L, BUN 32 H, Creatinine 0.88, Estim Creat Clear Calc 56.94, Est GFR (MDRD) Af Amer 85, Est GFR (MDRD) Non-Af 70, BUN/Creatinine Ratio 36.5 H, Glucose 158 H, Calcium 8.5 09/01/21 06:41: POC Glucose 165 H Micro: Microbiology 08/25/21 16:00 Blood Culture (Wb) - Anticubital Right Blood Culture - Final No growth in 5 days. 08/25/21 16:00 Blood Culture (Wb) - Anticubital Right Blood Culture - Final No growth in 5 days. 08/25/21 23:00 Urine, Catheterized Urine Culture - Final Culture exhibits no growth. 08/25/21 Unknown Mucosa - Nasopharyngeal Respiratory Panel (PCR) - Final 08/25/21 23:00 Urine Catheter - Catheter Legionella Antigen - Final 08/25/21 23:00 Urine Catheter - Catheter Streptococcus pneumoniae Antigen (M - Final Physical Exam Narrative Const alert, oriented x3 and no apparent distress General Appearance: cooperative Nutritional Appearance: morbidly obese HEENT normocephalic and moist oral mucous membranes Eyes PERRL, EOMs intact bilaterally and conjunctivae normal Neck supple and no JVD Resp normal respiratory effort, no retractions and no use of accessory muscles Auscultation: diminished lung sounds; Negative for crackles, rales, rhonchi or wheezes Cardio regular rate, regular rhythm, S1 normal heart sound, S2 normal heart sound and no murmurs GI soft to palpation, non-tender and non-distended; Negative for hepatosplenomegaly Extremity General Extremity: edema; Negative for clubbing or cyanosis Skin no rashes or lesions noted Neuro no focal motor deficits and no sensory deficits noted Psych Mood & Affect: flat affect Assessment & Plan Assessment/Plan (1) Acute respiratory failure with hypoxia: (2) Bilateral interstitial pneumonia: PLAN: #Acute hypoxic respiratory failure due to bilateral pneumonia * Has been weaned down to 7 L of oxygen by nasal cannula * on meropenem, continue for total of 7 days * blood and sputum cultures show no growth so far. * on IV solumedrol * critical care on board * titrate oxygen to maintain sats >90% * Continue with speech therapy given the risk for continued aspiration #Acute metabolic encephalopathy due to bilateral pneumonia and acute hypoxic respiratory failure * Encephalopathy has resolved #Sepsis due to bilateral pneumonia/STEVEN on CKD 3a * now on IV meropenem, UTI ruled out * blood and urine cultures negative so far. * covid test was negative * We will continue to monitor, STEVEN has resolved #Elevated D dimer: CTA was negative for PE. #Paroxysmal Atrial fibrillation * patient noted to be going into intermittent afib per nurses. Continue with p.o. metoprolol, she is now normal sinus * will monitor per telemetry for afib. * 2D echo showed EF of 55-60%, with normal left ventricle and normal right ventricle and still function. * Has not been noted to be in A. fib again. #Bipolar disorder and depression: on citalopram and topiramate #Type 2 diabetes mellitus: metformin on hold due to lactic acidosis * Accu-Cheks AC at bedtime, continue with sliding scale insulin. Will make adjustments as necessary DVT: heparin Charges/Coding Visit Charges Inpatient E&M: 47319 Subs Hosp L2
--- NOTE | 2021-09-01 10:42 | PCM.PN.INT ---
Assessment & Plan Assessment/Plan (1) Sepsis: PLAN: RECOMMENDATIONS: 1. Continue to wean supplemental oxygen to maintain saturations at or above 90%. 2. Continue broad-spectrum antimicrobials to complete 7 days. 3. Dietary advancement per speech therapy recommendations. Avoid aspiration 4. Recommend empiric use of BiPAP therapy with naps and nightly. 5. Continue scheduled bronchodilators and steroids. 6. Continue appropriate DVT prophylaxis. IMPRESSIONS: 1. Sepsis Sepsis due to suspected pneumonia with acute sepsis related organ dysfunction as evidenced by acute respiratory failure necessitating noninvasive positive pressure ventilatory support, acute kidney injury and lactic acidemia. The patient does have an extensive smoking history and likely has underlying obstructive lung disease. For now, it is reasonable to continue antimicrobials for 7 days along with scheduled bronchodilators and steroids. Likely wean steroids once oxygenation improves. Clinical suspicion for recurrent aspiration leading to current status. Plan to continue to wean supplemental oxygen to maintain saturations at or above 90%. Encourage incentive spirometer use and mobilize patient as tolerated. Over concerns for aspiration, the patient is currently on a modified diet and being followed by speech therapy. 2. Acute on chronic kidney disease Resolved. Likely prerenal in etiology and related to #1. Continue to monitor urine output. No current indication for renal replacement therapy. Diuretic therapy is somewhat complicated given patient's marginal blood pressures. 3. Chronic tobacco dependency/questionable obstructive lung disease Smoking cessation counseling was provided. Nicotine replacement therapy can be offered to the patient while admitted to the hospital. The patient will be continued on supplemental oxygen along with scheduled bronchodilators and steroids. Patient likely will require a 12 to 14-day taper with outpatient follow-up for quantification clarification of lung function. 4. Morbid obesity/hypertension/hyperlipidemia/diabetes mellitus/GERD/bipolar disorder Complicates care, management, recovery and prognosis. Continue home medications as indicated. This note was generated with [employer] dictation software. It may contain incorrect words, spelling, and punctuation that were not noted in checking the note before signing. Subjective Subjective Patient did okay overnight. No acute issues were reported. Patient still requiring significant nasal cannula oxygen to maintain saturations, but states that she is relatively asymptomatic at rest. Patient did get placed on a modified diet yesterday following a swallow study. Patient is not happy with the new consistencies. Objective Data Objective Data Vital Signs: Vital Signs Temp Pulse Resp BP Pulse Ox 36.4 C L 64 16 111/52 L 93 09/01/21 08:03 09/01/21 10:01 09/01/21 08:03 09/01/21 10:01 09/01/21 08:03 Oxygen Flow Rate (L/min) 7 Oxygen Delivery Method Nasal Cannula Weight: 112.7 kg Body Mass Index (BMI) 43.7 Intake & Output: Intake and Output for Last 24 Hours 08/30/21 08/31/21 09/01/21 23:59 23:59 23:59 Intake Total 853.25 / 863.25 1048.75 / 1248.75 440 / 440 Output Total 1850 / 1850 1720 / 2220 1000 / 1000 Balance -996.75 / -986.75 -671.25 / -971.25 -560 / -560 Lab / Micro Data Result Diagrams: 09/01/21 05:25 09/01/21 05:25 Labs: Laboratory Results - last 24 hr 08/31/21 12:12: POC Glucose 202 H 08/31/21 16:49: POC Glucose 223 H 08/31/21 21:21: POC Glucose 196 H 09/01/21 05:25: WBC 10.0, RBC 4.13 L, Hgb 12.6, Hct 39.0, MCV 94.4, MCH 30.5, MCHC 32.3, RDW Std Deviation 47.2 H, RDW Coeff of Robert 13.5, Plt Count 344, MPV 10.9, Immature Gran % (Auto) 1.100 H, Neut % (Auto) 84.5 H, Lymph % (Auto) 9.5 L, [place] % (Auto) 4.8, Eos % (Auto) 0.0, Baso % (Auto) 0.1, Absolute Neuts (auto) 8.4 H, Absolute Lymphs (auto) 0.95, Nucleated RBC % 0.2, Differential Comment SCANNED, Atypical Lymphocytes RARE 09/01/21 05:25: Sodium 143, Potassium 4.8, Chloride 110 H, Carbon Dioxide 30.0, Anion Gap 3 L, BUN 32 H, Creatinine 0.88, Estim Creat Clear Calc 56.94, Est GFR (MDRD) Af Amer 85, Est GFR (MDRD) Non-Af 70, BUN/Creatinine Ratio 36.5 H, Glucose 158 H, Calcium 8.5 09/01/21 06:41: POC Glucose 165 H Micro: Microbiology 08/25/21 16:00 Blood Culture (Wb) - Anticubital Right Blood Culture - Final No growth in 5 days. 08/25/21 16:00 Blood Culture (Wb) - Anticubital Right Blood Culture - Final No growth in 5 days. 08/25/21 23:00 Urine, Catheterized Urine Culture - Final Culture exhibits no growth. 08/25/21 Unknown Mucosa - Nasopharyngeal Respiratory Panel (PCR) - Final 08/25/21 23:00 Urine Catheter - Catheter Legionella Antigen - Final 08/25/21 23:00 Urine Catheter - Catheter Streptococcus pneumoniae Antigen (M - Final Physical Exam Const alert General Appearance: cooperative Nutritional Appearance: morbidly obese HEENT normocephalic and head/scalp atraumatic Eyes PERRL, EOMs intact bilaterally and conjunctivae normal Neck supple General: trachea midline Chest inspection of chest normal Resp Auscultation: diminished lung sounds; Negative for rales, rhonchi or wheezes Cardio regular rate, regular rhythm, S1 normal heart sound and S2 normal heart sound GI normal to inspection, nondistended, normoactive bowel sounds Extremity General Extremity: edema bilateral lower extremity; Negative for clubbing or cyanosis Skin no rashes or lesions noted Neuro CN's II-XII intact bilaterally and no focal motor deficits Psych Mood & Affect: flat affect Charges/Coding Visit Charges Inpatient E&M: 29879 Subs Hosp L2
[2021-09-01 11:56] LABS: Bedside Glucose 170 mg/dL (70-110)
[2021-09-01 17:01] LABS: Bedside Glucose 168 mg/dL (70-110)
[2021-09-01] MEDS: Acetaminophen 325 MG Tablet 650 MG PO (22:13)
[2021-09-01 22:46] LABS: Bedside Glucose 176 mg/dL (70-110)
[2021-09-02] VITALS (21 sets, daily range): BP systolic 95–112; BP diastolic 48–65; PULSE 52–70; RESP 16–20; TEMP 36.1–36.7; O2SAT 92–98
[2021-09-02 05:19] LABS: Absolute Lymphocyte Count 0.81 X10^3/uL (0.83-4.51); Absolute Neutrophil Count 10.1 X10^3/uL (2.0-7.7); Basophil# 0.03 X10^3/uL; Basophil% 0.3 % (0-1); Hematocrit 39.4 % (37-47); Lymphocyte # 0.81 X10^3/ul (0.83-4.51); Lymphocyte % 7.1 % (19-41); Mean Corpuscular Hgb 31.4 pg (27.0-32.0); Mean Corpuscular Volume 95.2 fL (81-99); Monocyte# 0.38 X10^3/uL; Monocyte% 3.3 % (0-10); NRBC Flagged by Analyzer 0 % (0-5); Neutrophil % 88.3 % (47-70); Platelet Count 342 K/mm3 (150-450); RBC Distribution Width CV 13.3 % (11.6-14.6); RBC Distribution Width SD 46.8 fl (35.1-43.9); Red Blood Count 4.14 M/mm3 (4.2-5.4); White Blood Count 11.4 K/mm3 (4.4-11.0)
[2021-09-02 05:53] LABS: Anion Gap 3 (5-15); BUN 35 mg/dL (7-18); BUN/Creat Ratio 38.6 RATIO (10-20); Calcium,Total 8.6 mg/dL (8.5-10.1); Chloride 108 mmol/L (98-107); Creatinine, Serum 0.91 mg/dL (0.55-1.02); EST Glomerular Filtration Rate 67 mL/min (>60); Est Glom Filt Rate - Afr Amer 82 mL/min (>60); Estimated Creatinine Clearance 55.06 ml/min; Glucose 161 mg/dL (74-106); Sodium Level 139 mmol/L (136-145)
[2021-09-02] MEDS: Insulin Lispro 100 UNIT/ML INSULN.PEN SC ×2 (06:22→16:33)
[2021-09-02 06:51] LABS: Bedside Glucose 160 mg/dL (70-110)
[2021-09-02] MEDS: Ipratropium/Albuterol Sulfate 3 ML AMPUL.NEB INHALATION ×2 (07:05→10:54)
--- NOTE | 2021-09-02 09:42 | CASEMGMT ---
SW reviewed chart and noted patient is not doing very well with therapy, she is on O2 which is new, and speech has her on a modified diet. SW met with patient, introduced self and role at [facility]. SW explained to patient that SW and physician are concerned with her going home. SW explained she has several new things going on right now. SW told patient going to a facility for short term will help her recover quicker. She will have therapy see her almost every day. SW reminded her she will likely have to go home on Oxygen and she is on a special diet. Patient said she is going home. She has cats to take care of. SW reminded her she lives with other people who can care for her cats. She said she needs to get a new hot water heater too. Patient said she has things to do at home. SW told her that in her condition she is likely not going to be able to do those things right away. Patient again said she wants to go home. Patient's low health literacy limits her ability to fully understand all of her new health conditions. SW provided a list of SNF providers including quality and resource use data and consistent with the patient?s preferred geographic region, medical needs, and insurance network. SW told patient the facilities marked in pink are the ones she would have to pick from. SW told patient to continue to think about this. Patient gave ANGI permission to talk with her caser Nicolasa. ANGI called Nicolasa at [facility]. SW explained to Nciolasa SW and physician's concerns with patient going home. Nicolasa agrees with the concerns. Nicolasa said she will come in today and talk with patient. SW let her know patient will be ready in the next day or so. Farnaz Jo MSW DIANA
--- NOTE | 2021-09-02 09:44 | PN.HOSP_ITS ---
Subjective Subjective Feels better today, no issues overnight. She has made some improvement in her oxygen requirements she is currently down to 5 L while awake is likely due to the dietary modifications made in the fact that she was likely silently aspirating all this time. Objective Data Objective Data Vital Signs: Vital Signs Temp Pulse Resp BP Pulse Ox 97.0 F L 52 L 16 101/52 L 94 09/02/21 06:12 09/02/21 07:00 09/02/21 06:12 09/02/21 06:12 09/02/21 06:12 Oxygen Flow Rate (L/min) 5 Oxygen Delivery Method High Flow Weight: 253 lb 1.451 oz Body Mass Index (BMI) 43.7 Intake & Output: Intake and Output for Last 24 Hours 09/01/21 09/02/21 09/03/21 03:59 03:59 03:59 Intake Total 1208.75 / 1208.75 1100 / 1100 240 / 240 Output Total 2220 / 2220 875 / 875 Balance -1011.25 / -1011.25 225 / 225 240 / 240 Lab / Micro Data Result Diagrams: 09/02/21 04:01 09/02/21 04:01 Labs: Laboratory Results - last 24 hr 09/01/21 11:40: POC Glucose 170 H 09/01/21 16:52: POC Glucose 168 H 09/01/21 22:32: POC Glucose 176 H 09/02/21 04:01: WBC 11.4 H, RBC 4.14 L, Hgb 13.0, Hct 39.4, MCV 95.2, MCH 31.4, MCHC 33.0, RDW Std Deviation 46.8 H, RDW Coeff of Robert 13.3, Plt Count 342, MPV 11.0, Immature Gran % (Auto) 1.000 H, Neut % (Auto) 88.3 H, Lymph % (Auto) 7.1 L , [place] % (Auto) 3.3, Eos % (Auto) 0.0, Baso % (Auto) 0.3, Absolute Neuts (auto) 10.1 H, Absolute Lymphs (auto) 0.81 L, Nucleated RBC % 0 09/02/21 04:01: Sodium 139, Potassium 5.0, Chloride 108 H, Carbon Dioxide 28.0, Anion Gap 3 L, BUN 35 H, Creatinine 0.91, Estim Creat Clear Calc 55.06, Est GFR (MDRD) Af Amer 82, Est GFR (MDRD) Non-Af 67, BUN/Creatinine Ratio 38.6 H, Glucose 161 H, Calcium 8.6 09/02/21 06:21: POC Glucose 160 H Micro: Microbiology 08/25/21 16:00 Blood Culture (Wb) - Anticubital Right Blood Culture - Final No growth in 5 days. 08/25/21 16:00 Blood Culture (Wb) - Anticubital Right Blood Culture - Final No growth in 5 days. 08/25/21 23:00 Urine, Catheterized Urine Culture - Final Culture exhibits no growth. 08/25/21 Unknown Mucosa - Nasopharyngeal Respiratory Panel (PCR) - Final 08/25/21 23:00 Urine Catheter - Catheter Legionella Antigen - Final 08/25/21 23:00 Urine Catheter - Catheter Streptococcus pneumoniae Antigen (M - Final Physical Exam Narrative Const alert, oriented x3 and no apparent distress General Appearance: cooperative Nutritional Appearance: morbidly obese HEENT normocephalic and moist oral mucous membranes Eyes PERRL, EOMs intact bilaterally and conjunctivae normal Neck supple and no JVD Resp normal respiratory effort, no retractions and no use of accessory muscles Auscultation: diminished lung sounds; Negative for crackles, rales, rhonchi or wheezes Cardio regular rate, regular rhythm, S1 normal heart sound, S2 normal heart sound and no murmurs GI soft to palpation, non-tender and non-distended; Negative for hepatosplenomegaly Extremity General Extremity: edema; Negative for clubbing or cyanosis Skin no rashes or lesions noted Neuro no focal motor deficits and no sensory deficits noted Psych Mood & Affect: flat affect Assessment & Plan Assessment/Plan (1) Acute respiratory failure with hypoxia: (2) Bilateral interstitial pneumonia: PLAN: #Acute hypoxic respiratory failure due to bilateral pneumonia * Has been weaned down to 5 L of oxygen by nasal cannula * on meropenem, continue for total of 7 days * blood and sputum cultures show no growth so far. * on IV solumedrol * critical care on board * titrate oxygen to maintain sats >90% * Continue with speech therapy given the risk for continued aspiration, continued with diet modifications * PT/OT for possible placement #Acute metabolic encephalopathy due to bilateral pneumonia and acute hypoxic respiratory failure * Encephalopathy has resolved #Sepsis due to bilateral pneumonia/STEVEN on CKD 3a * now on IV meropenem, UTI ruled out * blood and urine cultures negative * covid test was negative * We will continue to monitor, STEVEN has resolved #Elevated D dimer: CTA was negative for PE. #Paroxysmal Atrial fibrillation * patient noted to be going into intermittent afib per nurses. Continue with p.o. metoprolol, she is now normal sinus * will monitor per telemetry for afib. * 2D echo showed EF of 55-60%, with normal left ventricle and normal right ventricle and still function. * Has not been noted to be in A. fib again. #Bipolar disorder and depression: on citalopram and topiramate #Type 2 diabetes mellitus: metformin on hold due to lactic acidosis * Accu-Cheks AC at bedtime, continue with sliding scale insulin. Will make adjustments as necessary DVT: heparin Charges/Coding Visit Charges Inpatient E&M: 96599 Subs Hosp L2
--- NOTE | 2021-09-02 09:48 | PN.CC_ITS ---
Assessment & Plan Assessment/Plan (1) Sepsis: PLAN: RECOMMENDATIONS: 1. Continue to wean supplemental oxygen to maintain saturations at or above 90%. 2. Continue broad-spectrum antimicrobials to complete 7 days. 3. Dietary advancement per speech therapy recommendations. Avoid aspiration 4. Recommend empiric use of BiPAP therapy with naps and nightly. Sleep study at discharge 5. Continue scheduled bronchodilators and steroids. 6. Continue appropriate DVT prophylaxis. IMPRESSIONS: 1. Sepsis Sepsis due to suspected pneumonia with acute sepsis related organ dysfunction as evidenced by acute respiratory failure necessitating noninvasive positive pressure ventilatory support, acute kidney injury and lactic acidemia. The patient does have an extensive smoking history and likely has underlying obstructive lung disease. For now, it is reasonable to continue antimicrobials for 7 days along with scheduled bronchodilators and steroids. Likely wean steroids once oxygenation improves. Clinical suspicion for recurrent aspiration leading to current status. Plan to continue to wean supplemental oxygen to maintain saturations at or above 90%. Encourage incentive spirometer use and mobilize patient as tolerated. Over concerns for aspiration, the patient is currently on a modified diet and being followed by speech therapy. 2. Acute on chronic kidney disease Resolved. Likely prerenal in etiology and related to #1. Continue to monitor urine output. No current indication for renal replacement therapy. Diuretic therapy is somewhat complicated given patient's marginal blood pressure s. 3. Chronic tobacco dependency/questionable obstructive lung disease acute hypoxic respiratory insufficiency Smoking cessation counseling was provided. Nicotine replacement therapy can be offered to the patient while admitted to the hospital. The patient will be continued on supplemental oxygen along with scheduled bronchodilators and steroids. Wean steroids today. Possible transition to prednisone tomorrow. Patient likely will require a 12 to 14-day taper with outpatient follow-up for quantification clarification of lung function. 4. Morbid obesity/hypertension/hyperlipidemia/diabetes mellitus/GERD/bipolar disorder Complicates care, management, recovery and prognosis. Continue home medications as indicated. This note was generated with [employer] dictation software. It may contain incorrect words, spelling, and punctuation that were not noted in checking the note before signing. Subjective Subjective Patient did well overnight. No acute issues were reported. Patient has been on the modified diet for over 24 hours and oxygenation has improved significantly. Patient has been tolerating the modified diet well. Objective Data Objective Data Vital Signs: Vital Signs Temp Pulse Resp BP Pulse Ox 36.1 C L 52 L 16 101/52 L 94 09/02/21 06:12 09/02/21 07:00 09/02/21 06:12 09/02/21 06:12 09/02/21 06:12 Oxygen Flow Rate (L/min) 5 Oxygen Delivery Method High Flow Weight: 114.8 kg Body Mass Index (BMI) 43.7 Intake & Output: Intake and Output for Last 24 Hours 08/31/21 09/01/21 09/02/21 23:59 23:59 23:59 Intake Total 1048.75 / 1248.75 800 / 1300 860 / 860 Output Total 1720 / 2220 1375 / 1375 Balance -671.25 / -971.25 -575 / -75 860 / 860 Lab / Micro Data Result Diagrams: 09/02/21 04:01 09/02/21 04:01 Labs: Laboratory Results - last 24 hr 09/01/21 11:40: POC Glucose 170 H 09/01/21 16:52: POC Glucose 168 H 09/01/21 22:32: POC Glucose 176 H 09/02/21 04:01: WBC 11.4 H, RBC 4.14 L, Hgb 13.0, Hct 39.4, MCV 95.2, MCH 31.4, MCHC 33.0, RDW Std Deviation 46.8 H, RDW Coeff of Robert 13.3, Plt Count 342, MPV 11.0, Immature Gran % (Auto) 1.000 H, Neut % (Auto) 88.3 H, Lymph % (Auto) 7.1 L , [place] % (Auto) 3.3, Eos % (Auto) 0.0, Baso % (Auto) 0.3, Absolute Neuts (auto) 10.1 H, Absolute Lymphs (auto) 0.81 L, Nucleated RBC % 0 09/02/21 04:01: Sodium 139, Potassium 5.0, Chloride 108 H, Carbon Dioxide 28.0, Anion Gap 3 L, BUN 35 H, Creatinine 0.91, Estim Creat Clear Calc 55.06, Est GFR (MDRD) Af Amer 82, Est GFR (MDRD) Non-Af 67, BUN/Creatinine Ratio 38.6 H, Glucose 161 H, Calcium 8.6 09/02/21 06:21: POC Glucose 160 H Micro: Microbiology 08/25/21 16:00 Blood Culture (Wb) - Anticubital Right Blood Culture - Final No growth in 5 days. 08/25/21 16:00 Blood Culture (Wb) - Anticubital Right Blood Culture - Final No growth in 5 days. 08/25/21 23:00 Urine, Catheterized Urine Culture - Final Culture exhibits no growth. 08/25/21 Unknown Mucosa - Nasopharyngeal Respiratory Panel (PCR) - Final 08/25/21 23:00 Urine Catheter - Catheter Legionella Antigen - Final 08/25/21 23:00 Urine Catheter - Catheter Streptococcus pneumoniae Antigen (M - Final Physical Exam Const alert, oriented x3 and no apparent distress Constitutional Narrative: No conversational dyspnea General Appearance: cooperative Nutritional Appearance: morbidly obese HEENT normocephalic and head/scalp atraumatic Eyes PERRL, EOMs intact bilaterally and conjunctivae normal Neck supple General: trachea midline Chest inspection of chest normal Resp Auscultation: diminished lung sounds; Negative for rales, rhonchi or wheezes Cardio regular rate, regular rhythm, S1 normal heart sound and S2 normal heart sound GI normal to inspection, nondistended, normoactive bowel sounds Extremity General Extremity: edema bilateral lower extremity; Negative for clubbing or cyanosis Skin no rashes or lesions noted Neuro CN's II-XII intact bilaterally and no focal motor deficits Psych Mood & Affect: flat affect Charges/Coding Visit Charges Inpatient E&M: 95574 Subs Hosp L2
[2021-09-02] MEDS: Fludrocortisone Acetate 0.1 MG Tablet PO (10:04)
[2021-09-02] MEDS: Pantoprazole Sodium 40 MG Tablet PO (10:04)
[2021-09-02] MEDS: Citalopram 10 MG Tablet PO (10:05)
[2021-09-02] MEDS: APIXABAN 5 MG TABLET PO ×2 (10:05→21:49)
[2021-09-02] MEDS: Topiramate 25 MG Tablet PO ×2 (10:08→21:53)
[2021-09-02] MEDS: QUEtiapine 100 MG Tablet 200 MG PO ×2 (10:08→21:51)
[2021-09-02] MEDS: Amantadine 100 MG Capsule PO ×2 (10:09→21:52)
[2021-09-02] MEDS: Mirabegron 25 MG TAB.ER.24H PO (10:09)
[2021-09-02] MEDS: Menthol/Lanolin/Calamine/Znox 113 GM Tube 1 APPLIC TOPICAL ×2 (10:10→21:40)
[2021-09-02] MEDS: 0.9% Saline Lock 10 ML Syringe IV ×2 (10:12→19:36)
[2021-09-02 11:36] LABS: Bedside Glucose 131 mg/dL (70-110)
[2021-09-02 16:41] LABS: Bedside Glucose 174 mg/dL (70-110)
[2021-09-02 22:31] LABS: Bedside Glucose 133 mg/dL (70-110)
[2021-09-03] VITALS (17 sets, daily range): BP systolic 97–116; BP diastolic 54–66; PULSE 53–81; RESP 15–21; TEMP 36.4–36.8; O2SAT 93–99
[2021-09-03 05:33] LABS: Absolute Lymphocyte Count 0.78 X10^3/uL (0.83-4.51); Absolute Neutrophil Count 8.2 X10^3/uL (2.0-7.7); Basophil# 0.01 X10^3/uL; Basophil% 0.1 % (0-1); Hematocrit 39.9 % (37-47); Lymphocyte # 0.78 X10^3/ul (0.83-4.51); Lymphocyte % 8.3 % (19-41); Mean Corp Hgb Conc 32.6 g/dL (32-36); Mean Corpuscular Volume 95.2 fL (81-99); Mean Platelet Vol. 11.1 fl (6.2-12.0); Monocyte% 3.2 % (0-10); NRBC Flagged by Analyzer 0 % (0-5); Neutrophil # 8.19 X10^3/uL (2.7-7.7); Neutrophil % 87.3 % (47-70); Platelet Count 317 K/mm3 (150-450); RBC Distribution Width CV 13.4 % (11.6-14.6); RBC Distribution Width SD 47.5 fl (35.1-43.9); Red Blood Count 4.19 M/mm3 (4.2-5.4); White Blood Count 9.4 K/mm3 (4.4-11.0)
[2021-09-03 05:54] LABS: Anion Gap 2 (5-15); BUN 34 mg/dL (7-18); BUN/Creat Ratio 39.5 RATIO (10-20); Calcium,Total 8.4 mg/dL (8.5-10.1); Chloride 108 mmol/L (98-107); Creatinine, Serum 0.86 mg/dL (0.55-1.02); EST Glomerular Filtration Rate 72 mL/min (>60); Est Glom Filt Rate - Afr Amer 87 mL/min (>60); Estimated Creatinine Clearance 58.26 ml/min; Glucose 152 mg/dL (74-106); Sodium Level 140 mmol/L (136-145)
[2021-09-03 06:46] LABS: Bedside Glucose 144 mg/dL (70-110)
[2021-09-03] MEDS: Ipratropium/Albuterol Sulfate 3 ML AMPUL.NEB INHALATION ×4 (06:56→19:10)
[2021-09-03] MEDS: Fludrocortisone Acetate 0.1 MG Tablet PO (07:38)
--- NOTE | 2021-09-03 08:55 | PCM.PN.INT ---
Assessment & Plan Assessment/Plan (1) Sepsis: PLAN: RECOMMENDATIONS: 1. Continue to wean supplemental oxygen to maintain saturations at or above 90%. 2. Continue broad-spectrum antimicrobials to complete 7 days. Today is the last day 3. Dietary advancement per speech therapy recommendations. Avoid aspiration 4. Recommend empiric use of BiPAP therapy with naps and nightly. Sleep study at discharge 5. Continue scheduled bronchodilators. Transition to prednisone and weaned over 12 to 14 days 6. Continue appropriate DVT prophylaxis. IMPRESSIONS: 1. Sepsis Sepsis due to suspected pneumonia with acute sepsis related organ dysfunction as evidenced by acute respiratory failure necessitating noninvasive positive pressure ventilatory support, acute kidney injury and lactic acidemia. The patient does have an extensive smoking history and likely has underlying obstructive lung disease. For now, it is reasonable to continue antimicrobials for 7 days (09/03/2021) along with scheduled bronchodilators. Steroids will be transitioned to prednisone and weaned over 12 to 14 days. Clinical suspicion for recurrent aspiration leading to current status. Plan to continue to wean supplemental oxygen to maintain saturations at or above 90%. Encourage incentive spirometer use and mobilize patient as tolerated. Over concerns for aspiration, the patient is currently on a modified diet and being followed by speech therapy. 2. Acute on chronic kidney disease Resolved. Likely prerenal in etiology and related to #1. Continue to monitor urine output. No current indication for renal replacement therapy. Diuretic therapy is somewhat complicated given patient's marginal blood pressures. 3. Chronic tobacco dependency/questionable obstructive lung disease acute hypoxic respiratory insufficiency Smoking cessation counseling was provided. Nicotine replacement therapy can be offered to the patient while admitted to the hospital. The patient will be continued on supplemental oxygen along with scheduled bronchodilators and steroids. Patient likely will require a 12 to 14-day taper with outpatient follow-up for quantification clarification of lung function. 4. Morbid obesity/hypertension/hyperlipidemia/diabetes mellitus/GERD/bipolar disorder Complicates care, management, recovery and prognosis. Continue home medications as indicated. This note was generated with [employer] dictation software. It may contain incorrect words, spelling, and punctuation that were not noted in checking the note before signing. Subjective Subjective Patient did okay overnight. No acute issues were reported. Patient subjectively feels unchanged compared to yesterday. Did discuss with the patient about possibility of needing short-term rehab. Patient adamant that she wants to go home. Patient has been able to make it to the chair. Objective Data Objective Data Vital Signs: Vital Signs Temp Pulse Resp BP Pulse Ox 36.8 C 61 18 116/58 L 95 09/03/21 05:00 09/03/21 07:15 09/03/21 06:55 09/03/21 05:00 09/03/21 05:00 Oxygen Flow Rate (L/min) 5 Oxygen Delivery Method Nasal Cannula Weight: 114.4 kg Body Mass Index (BMI) 43.7 Intake & Output: Intake and Output for Last 24 Hours 09/01/21 09/02/21 09/03/21 23:59 23:59 23:59 Intake Total 800 / 1300 980 / 980 120 / 120 Output Total 1375 / 1375 450 / 450 Balance -575 / -75 980 / 980 -330 / -330 Lab / Micro Data Result Diagrams: 09/03/21 04:29 09/03/21 04:29 Labs: Laboratory Results - last 24 hr 09/02/21 11:29: POC Glucose 131 H 09/02/21 16:31: POC Glucose 174 H 09/02/21 21:38: POC Glucose 133 H 09/03/21 04:29: WBC 9.4, RBC 4.19 L, Hgb 13.0, Hct 39.9, MCV 95.2, MCH 31.0, MCHC 32.6, RDW Std Deviation 47.5 H, RDW Coeff of Robert 13.4, Plt Count 317, MPV 11.1, Immature Gran % (Auto) 1.100 H, Neut % (Auto) 87.3 H, Lymph % (Auto) 8.3 L, [place] % (Auto) 3.2, Eos % (Auto) 0.0, Baso % (Auto) 0.1, Absolute Neuts (auto) 8.2 H, Absolute Lymphs (auto) 0.78 L, Nucleated RBC % 0 09/03/21 04:29: Sodium 140, Potassium 5.0, Chloride 108 H, Carbon Dioxide 30.0, Anion Gap 2 L, BUN 34 H, Creatinine 0.86, Estim Creat Clear Calc 58.26, Est GFR (MDRD) Af Amer 87, Est GFR (MDRD) Non-Af 72, BUN/Creatinine Ratio 39.5 H, Glucose 152 H, Calcium 8.4 L 09/03/21 06:09: POC Glucose 144 H Micro: Microbiology 08/25/21 16:00 Blood Culture (Wb) - Anticubital Right Blood Culture - Final No growth in 5 days. 08/25/21 16:00 Blood Culture (Wb) - Anticubital Right Blood Culture - Final No growth in 5 days. 08/25/21 23:00 Urine, Catheterized Urine Culture - Final Culture exhibits no growth. 08/25/21 Unknown Mucosa - Nasopharyngeal Respiratory Panel (PCR) - Final 08/25/21 23:00 Urine Catheter - Catheter Legionella Antigen - Final 08/25/21 23:00 Urine Catheter - Catheter Streptococcus pneumoniae Antigen (M - Final Physical Exam Const alert, oriented x3 and no apparent distress Constitutional Narrative: No conversational dyspnea General Appearance: cooperative Nutritional Appearance: morbidly obese HEENT normocephalic and head/scalp atraumatic Eyes PERRL, EOMs intact bilaterally and conjunctivae normal Neck supple General: trachea midline Chest inspection of chest normal Resp Auscultation: diminished lung sounds; Negative for rales, rhonchi or wheezes Cardio regular rate, regular rhythm, S1 normal heart sound and S2 normal heart sound GI normal to inspection, nondistended, normoactive bowel sounds Extremity General Extremity: edema bilateral lower extremity; Negative for clubbing or cyanosis Skin no rashes or lesions noted Neuro CN's II-XII intact bilaterally and no focal motor deficits Psych Mood & Affect: flat affect Charges/Coding Visit Charges Inpatient E&M: 68567 Subs Hosp L2
[2021-09-03] MEDS: Menthol/Lanolin/Calamine/Znox 113 GM Tube 1 APPLIC TOPICAL ×2 (10:40→21:50)
[2021-09-03] MEDS: predniSONE 20 MG Tablet 40 MG PO (10:40)
[2021-09-03] MEDS: Citalopram 10 MG Tablet PO (10:41)
[2021-09-03] MEDS: APIXABAN 5 MG TABLET PO ×2 (10:41→21:55)
[2021-09-03] MEDS: Mirabegron 25 MG TAB.ER.24H PO (10:44)
[2021-09-03] MEDS: Topiramate 25 MG Tablet PO ×2 (10:44→21:58)
[2021-09-03] MEDS: QUEtiapine 100 MG Tablet 200 MG PO ×2 (10:44→21:55)
[2021-09-03] MEDS: Pantoprazole Sodium 40 MG Tablet PO (10:44)
[2021-09-03] MEDS: Amantadine 100 MG Capsule PO ×2 (10:44→21:56)
[2021-09-03] MEDS: 0.9% Saline Lock 10 ML Syringe IV ×3 (10:45→22:00)
[2021-09-03] MEDS: Furosemide 20 MG Tablet PO ×2 (10:56→17:40)
[2021-09-03 11:20] LABS: Bedside Glucose 101 mg/dL (70-110)
--- NOTE | 2021-09-03 11:30 | ED.RN ---
STUDENT CHARTING REVIEWED BY THIS RN.
--- NOTE | 2021-09-03 11:39 | CASEMGMT ---
Addendum entered by Farnaz Jo 09/03/21 13:02: ANGI called patient's sister, Brianne and made sure she was aware of the amount of assistance patient is requiring. ANGI introduced self and role at [facility]. ANGI explained patient will likely be on home oxygen, she is on a special diet by Speech Therapy, and she is requiring assistance with getting around. ANGI explained to Brianne that [facility] is recommending patient go to a jail facility short term for rehab, but she is not in agreement. Brianne said she can come home and if doesn't work out maybe they can get her to go somewhere. Brianne asked for a list of foods patient is allowed to eat. ANGI told her there will be instructions in her d/c instructions when she is ready for discharge. Plan: At this time patient is refusing to go to a jail facility short term for rehab despite recommendation to do so. Farnaz OTRIZ Original Note: SW spoke with therapy and they are recommending patient go somewhere short term for rehab. SW spoke with patient about this yesterday and she was not in agreement. SW did leave a list in her room. SW went back to patient's room today to discuss this more. Patient was sitting up in her chair. SW discussed going somewhere for rehab and patient said she has to go home so she can write bills. SW told patient that right now she would not be able to get around by herself. SW reminded her she will have oxygen, she is on a special diet where she needs to thicken liquids she drinks, and she is requiring assistance with getting around. Patient feels she can do this with her sister's help. SW asked if her sister knows how much care she needs. Patient said yes. SW asked if patient could call her sister and she was okay with this. SW will try and call patient's sister. Farnaz ORTIZ
--- NOTE | 2021-09-03 13:07 | PN.HOSP_ITS ---
Subjective Subjective Doing well, no issues overnight, still requiring some oxygen but is much improved. She is fairly weak and PT does recommend additional therapy however she is struggling with the idea of going to a [facility] for rehab Objective Data Objective Data Vital Signs: Vital Signs Temp Pulse Resp BP Pulse Ox 97.6 F L 71 18 97/60 99 09/03/21 11:06 09/03/21 12:16 09/03/21 11:06 09/03/21 12:16 09/03/21 11:06 Oxygen Flow Rate (L/min) 4 Oxygen Delivery Method Nasal Cannula Weight: 252 lb 3.341 oz Body Mass Index (BMI) 43.7 Intake & Output: Intake and Output for Last 24 Hours 09/02/21 09/03/21 09/04/21 03:59 03:59 03:59 Intake Total 1100 / 1100 480 / 480 Output Total 875 / 875 450 / 450 Balance 225 / 225 480 / 480 -450 / -450 Lab / Micro Data Result Diagrams: 09/03/21 04:29 09/03/21 04:29 Labs: Laboratory Results - last 24 hr 09/02/21 16:31: POC Glucose 174 H 09/02/21 21:38: POC Glucose 133 H 09/03/21 04:29: WBC 9.4, RBC 4.19 L, Hgb 13.0, Hct 39.9, MCV 95.2, MCH 31.0, MCHC 32.6, RDW Std Deviation 47.5 H, RDW Coeff of Robert 13.4, Plt Count 317, MPV 11.1, Immature Gran % (Auto) 1.100 H, Neut % (Auto) 87.3 H, Lymph % (Auto) 8.3 L , [place] % (Auto) 3.2, Eos % (Auto) 0.0, Baso % (Auto) 0.1, Absolute Neuts (auto) 8.2 H, Absolute Lymphs (auto) 0.78 L, Nucleated RBC % 0 09/03/21 04:29: Sodium 140, Potassium 5.0, Chloride 108 H, Carbon Dioxide 30.0, Anion Gap 2 L, BUN 34 H, Creatinine 0.86, Estim Creat Clear Calc 58.26, Est GFR (MDRD) Af Amer 87, Est GFR (MDRD) Non-Af 72, BUN/Creatinine Ratio 39.5 H, Glucose 152 H, Calcium 8.4 L 09/03/21 06:09: POC Glucose 144 H 09/03/21 10:35: POC Glucose 101 Micro: Microbiology 08/25/21 16:00 Blood Culture (Wb) - Anticubital Right Blood Culture - Final No growth in 5 days. 08/25/21 16:00 Blood Culture (Wb) - Anticubital Right Blood Culture - Final No growth in 5 days. 08/25/21 23:00 Urine, Catheterized Urine Culture - Final Culture exhibits no growth. 08/25/21 Unknown Mucosa - Nasopharyngeal Respiratory Panel (PCR) - Final 08/25/21 23:00 Urine Catheter - Catheter Legionella Antigen - Final 08/25/21 23:00 Urine Catheter - Catheter Streptococcus pneumoniae Antigen (M - Final Physical Exam Narrative Const alert, oriented x3 and no apparent distress General Appearance: cooperative Nutritional Appearance: morbidly obese HEENT normocephalic and moist oral mucous membranes Eyes PERRL, EOMs intact bilaterally and conjunctivae normal Neck supple and no JVD Resp normal respiratory effort, no retractions and no use of accessory muscles Auscultation: diminished lung sounds; Negative for crackles, rales, rhonchi or wheezes Cardio regular rate, regular rhythm, S1 normal heart sound, S2 normal heart sound and no murmurs GI soft to palpation, non-tender and non-distended; Negative for hepatosplenomegaly Extremity General Extremity: edema; Negative for clubbing or cyanosis Skin no rashes or lesions noted Neuro no focal motor deficits and no sensory deficits noted Psych Mood & Affect: flat affect Assessment & Plan Assessment/Plan (1) Acute respiratory failure with hypoxia: (2) Bilateral interstitial pneumonia: PLAN: #Acute hypoxic respiratory failure due to bilateral pneumonia * Has been weaned down to 4 L of oxygen by nasal cannula * on meropenem, continue for total of 7 days * blood and sputum cultures show no growth so far. * Transition to prednisone * critical care on board * titrate oxygen to maintain sats >90% * Continue with speech therapy given the risk for continued aspiration, continued with diet modifications * PT/OT for possible placement, continue to recommend SNF #Acute metabolic encephalopathy due to bilateral pneumonia and acute hypoxic respiratory failure * Encephalopathy has resolved #Sepsis due to bilateral pneumonia/STEVEN on CKD 3a * Completed IV meropenem * blood and urine cultures negative * covid test was negative * We will continue to monitor, STEVEN has resolved #Elevated D dimer: CTA was negative for PE. #Paroxysmal Atrial fibrillation * patient noted to be going into intermittent afib per nurses. Continue with p.o. metoprolol, she is now normal sinus * will monitor per telemetry for afib. * 2D echo showed EF of 55-60%, with normal left ventricle and normal right ventricle and still function. * Has not been noted to be in A. fib again. #Bipolar disorder and depression: on citalopram and topiramate #Type 2 diabetes mellitus: metformin on hold due to lactic acidosis * Accu-Cheks AC at bedtime, continue with sliding scale insulin. Will make adjustments as necessary DVT: heparin Charges/Coding Visit Charges Inpatient E&M: 75407 Subs Hosp L2
[2021-09-03 16:56] LABS: Bedside Glucose 141 mg/dL (70-110)
[2021-09-03] MEDS: Insulin Lispro 100 UNIT/ML INSULN.PEN SC (21:48)
[2021-09-04] VITALS (18 sets, daily range): BP systolic 95–116; BP diastolic 56–75; PULSE 60–98; RESP 14–20; TEMP 36.6–37.1; O2SAT 84–98
[2021-09-04 01:11] LABS: Bedside Glucose 152 mg/dL (70-110)
[2021-09-04 06:11] LABS: Bedside Glucose 82 mg/dL (70-110)
[2021-09-04 06:35] LABS: Anion Gap 4 (5-15); BUN 32 mg/dL (7-18); BUN/Creat Ratio 33.9 RATIO (10-20); Calcium,Total 8.6 mg/dL (8.5-10.1); Chloride 106 mmol/L (98-107); Creatinine, Serum 0.94 mg/dL (0.55-1.02); EST Glomerular Filtration Rate 64 mL/min (>60); Est Glom Filt Rate - Afr Amer 78 mL/min (>60); Estimated Creatinine Clearance 53.31 ml/min; Glucose 85 mg/dL (74-106); Potassium 4.1 mmol/L (3.5-5.1); Sodium Level 140 mmol/L (136-145)
[2021-09-04] MEDS: Ipratropium/Albuterol Sulfate 3 ML AMPUL.NEB INHALATION ×4 (07:08→19:41)
--- NOTE | 2021-09-04 07:23 | PN.CC_ITS ---
Assessment & Plan Assessment/Plan (1) Sepsis: PLAN: RECOMMENDATIONS: 1. Continue to wean supplemental oxygen to maintain saturations at or above 90%. 2. Monitor off antibiotics 3. Maintain modified diet per speech therapy 4. Recommend empiric use of BiPAP therapy with naps and nightly. Sleep study as an outpatient 5. Continue scheduled bronchodilators. Transition to prednisone and weaned over 12 to 14 days 6. Continue appropriate DVT prophylaxis. 7. Continue diuretics pending chemistries IMPRESSIONS: 1. Sepsis Sepsis due to suspected pneumonia with acute sepsis related organ dysfunction as evidenced by acute respiratory failure necessitating noninvasive positive pressure ventilatory support, acute kidney injury and lactic acidemia. The patient does have an extensive smoking history and likely has underlying obstructive lung disease. For now, it is reasonable to continue antimicrobials for 7 days (09/03/2021) along with scheduled bronchodilators. Steroids were transitioned to prednisone and can be weaned over 12 to 14 days. Clinical suspicion for recurrent aspiration leading to current status. Plan to continue to wean supplemental oxygen to maintain saturations at or above 90%. Encourage incentive spirometer use and mobilize patient as tolerated. Over concerns for aspiration, the patient is currently on a modified diet and being followed by speech therapy. Patient should follow-up in our office in 4 weeks with nurse practitioner 2. Acute on chronic kidney disease Resolved. Likely prerenal in etiology and related to #1. Continue to monitor urine output. No current indication for renal replacement therapy. Diuretic therapy is somewhat complicated given patient's marginal blood pressures. 3. Chronic tobacco dependency/questionable obstructive lung disease acute hypoxic respiratory insufficiency Smoking cessation counseling was provided. Nicotine replacement therapy can be offered to the patient while admitted to the hospital. The patient will be continued on supplemental oxygen along with scheduled bronchodilators and st eroids. Patient likely will require a 12 to 14-day taper with outpatient follow-up for quantification clarification of lung function. 4. Morbid obesity/hypertension/hyperlipidemia/diabetes mellitus/GERD/bipolar disorder Complicates care, management, recovery and prognosis. Continue home medications as indicated. This note was generated with [employer] dictation software. It may contain incorrect words, spelling, and punctuation that were not noted in checking the note before signing. Subjective Subjective Patient did well overnight. No acute issues were reported. Patient has been able to go down to 4 L nasal cannula. Patient reportedly is now agreeable to go to an [facility] for rehab. Patient denies any chest pain, epistaxis or hemoptysis. Objective Data Objective Data Vital Signs: Vital Signs Temp Pulse Resp BP Pulse Ox 36.8 C 78 16 110/73 95 09/04/21 04:45 09/04/21 04:45 09/04/21 04:45 09/04/21 04:45 09/04/21 04:45 Oxygen Flow Rate (L/min) 4 Oxygen Delivery Method Nasal Cannula Weight: 112.9 kg Body Mass Index (BMI) 43.7 Intake & Output: Intake and Output for Last 24 Hours 09/02/21 09/03/21 09/04/21 23:59 23:59 23:59 Intake Total 980 / 980 660 / 660 Output Total 800 / 1400 1250 / 1250 Balance 980 / 980 -140 / -740 -1250 / -1250 Lab / Micro Data Result Diagrams: 09/03/21 04:29 09/04/21 06:06 Labs: Laboratory Results - last 24 hr 09/03/21 10:35: POC Glucose 101 09/03/21 16:46: POC Glucose 141 H 09/03/21 21:47: POC Glucose 152 H 09/04/21 06:04: POC Glucose 82 09/04/21 06:06: Sodium 140, Potassium 4.1, Chloride 106, Carbon Dioxide 30.0, Anion Gap 4 L, BUN 32 H, Creatinine 0.94, Estim Creat Clear Calc 53.31, Est GFR (MDRD) Af Amer 78, Est GFR (MDRD) Non-Af 64, BUN/Creatinine Ratio 33.9 H, Glucose 85, Calcium 8.6 Micro: Microbiology 08/25/21 16:00 Blood Culture (Wb) - Anticubital Right Blood Culture - Final No growth in 5 days. 08/25/21 16:00 Blood Culture (Wb) - Anticubital Right Blood Culture - Final No growth in 5 days. 08/25/21 23:00 Urine, Catheterized Urine Culture - Final Culture exhibits no growth. 08/25/21 Unknown Mucosa - Nasopharyngeal Respiratory Panel (PCR) - Final 08/25/21 23:00 Urine Catheter - Catheter Legionella Antigen - Final 08/25/21 23:00 Urine Catheter - Catheter Streptococcus pneumoniae Antigen (M - Final Physical Exam Const alert, oriented x3 and no apparent distress Constitutional Narrative: No conversational dyspnea General Appearance: cooperative Nutritional Appearance: morbidly obese HEENT normocephalic and head/scalp atraumatic Eyes PERRL, EOMs intact bilaterally and conjunctivae normal Neck supple General: trachea midline Chest inspection of chest normal Resp Auscultation: diminished lung sounds; Negative for rales, rhonchi or wheezes Cardio regular rate, regular rhythm, S1 normal heart sound and S2 normal heart sound GI normal to inspection, nondistended, normoactive bowel sounds Extremity General Extremity: Negative for clubbing, cyanosis or edema Skin no rashes or lesions noted Neuro CN's II-XII intact bilaterally and no focal motor deficits Psych Mood & Affect: flat affect Charges/Coding Visit Charges Inpatient E&M: 60547 Subs Hosp L2
[2021-09-04] MEDS: predniSONE 20 MG Tablet 40 MG PO (08:40)
[2021-09-04] MEDS: QUEtiapine 100 MG Tablet 200 MG PO ×2 (08:41→20:17)
[2021-09-04] MEDS: Pantoprazole Sodium 40 MG Tablet PO (08:41)
[2021-09-04] MEDS: Amantadine 100 MG Capsule PO ×2 (08:41→20:17)
[2021-09-04] MEDS: Fludrocortisone Acetate 0.1 MG Tablet PO (08:41)
[2021-09-04] MEDS: Mirabegron 25 MG TAB.ER.24H PO (08:41)
[2021-09-04] MEDS: Furosemide 20 MG Tablet PO ×2 (08:42→17:21)
[2021-09-04] MEDS: Citalopram 10 MG Tablet PO (08:42)
[2021-09-04] MEDS: Metoprolol Tartrate 25 MG Tablet PO ×2 (08:42→20:20)
[2021-09-04] MEDS: APIXABAN 5 MG TABLET PO ×2 (08:42→20:18)
[2021-09-04] MEDS: Topiramate 25 MG Tablet PO ×2 (08:43→20:19)
[2021-09-04] MEDS: Menthol/Lanolin/Calamine/Znox 113 GM Tube 1 APPLIC TOPICAL ×2 (08:44→20:21)
--- NOTE | 2021-09-04 09:01 | CASEMGMT ---
ANGI spoke with patient and she agreed to go to [facility]. ANGI called [facility] and let them know SW is faxing a referral. ANGI faxed referral to [facility]. Await response. Farnaz ORTIZ
--- NOTE | 2021-09-04 11:47 | CASEMGMT ---
Addendum entered by Farnaz Jo 09/04/21 14:41: Erica at [facility] said patient does need a pre-cert. Erica did start the pre-cert. ANGI called Nicolasa patient's caser up and let her know patient did agree to go to [facility]. ANGI explained insurance has to approve her first. ANGI will let her know when patient goes. She thanked ANGI for the update. Plan: Jeffery Villatoro pending pre-cert. Farnaz Jo PLACEMENT MANAGER [employer] REPA[employer] Original Note: ANGI received a call from Erica at [facility] and they can accept patient. Erica will check to see if Cyril is waiving pre-certs. She will get back to ANGI. [facility]. ANGI told her [facility] is checking to see if her insurance has to approve her first. Plan: Jeffery Jo PLACEMENT MANAGER [employer] REPAIRER
[2021-09-04 11:56] LABS: Bedside Glucose 144 mg/dL (70-110)
--- NOTE | 2021-09-04 12:35 | PN.HOSP_ITS ---
Subjective Subjective Doing well, her oxygenation is improved. She has agreed [facility] a [facility] prior to discharge home Objective Data Objective Data Vital Signs: Vital Signs Temp Pulse Resp BP Pulse Ox 98.1 F 66 17 116/56 L 98 09/04/21 08:27 09/04/21 11:36 09/04/21 11:29 09/04/21 08:42 09/04/21 11:29 Oxygen Flow Rate (L/min) [ 4 AMBULATING with Oxygen #3] Oxygen Flow Rate (L/min) [ 3 AMBULATING with Oxygen #2] Oxygen Flow Rate (L/min) [ 2 AMBULATING with Oxygen #1] Oxygen Flow Rate (L/min) 2 Oxygen Delivery Method Nasal Cannula Weight: 248 lb 14.43 oz Body Mass Index (BMI) 43.7 Intake & Output: Intake and Output for Last 24 Hours 09/03/21 09/04/21 09/05/21 03:59 03:59 03:59 Intake Total 480 / 480 540 / 540 480 / 480 Output Total 1400 / 1400 1050 / 1050 Balance 480 / 480 -860 / -860 -570 / -570 Lab / Micro Data Result Diagrams: 09/03/21 04:29 09/04/21 06:06 Labs: Laboratory Results - last 24 hr 09/03/21 16:46: POC Glucose 141 H 09/03/21 21:47: POC Glucose 152 H 09/04/21 06:04: POC Glucose 82 09/04/21 06:06: Sodium 140, Potassium 4.1, Chloride 106, Carbon Dioxide 30.0, Anion Gap 4 L, BUN 32 H, Creatinine 0.94, Estim Creat Clear Calc 53.31, Est GFR (MDRD) Af Amer 78, Est GFR (MDRD) Non-Af 64, BUN/Creatinine Ratio 33.9 H, Glucose 85, Calcium 8.6 09/04/21 11:52: POC Glucose 144 H Micro: Microbiology 08/25/21 16:00 Blood Culture (Wb) - Anticubital Right Blood Culture - Final No growth in 5 days. 08/25/21 16:00 Blood Culture (Wb) - Anticubital Right Blood Culture - Final No growth in 5 days. 08/25/21 23:00 Urine, Catheterized Urine Culture - Final Culture exhibits no growth. 08/25/21 Unknown Mucosa - Nasopharyngeal Respiratory Panel (PCR) - Final 08/25/21 23:00 Urine Catheter - Catheter Legionella Antigen - Final 08/25/21 23:00 Urine Catheter - Catheter Streptococcus pneumoniae Antigen (M - Final Physical Exam Narrative Const alert, oriented x3 and no apparent distress General Appearance: cooperative Nutritional Appearance: morbidly obese HEENT normocephalic and moist oral mucous membranes Eyes PERRL, EOMs intact bilaterally and conjunctivae normal Neck supple and no JVD Resp normal respiratory effort, no retractions and no use of accessory muscles Auscultation: diminished lung sounds; Negative for crackles, rales, rhonchi or wheezes Cardio regular rate, regular rhythm, S1 normal heart sound, S2 normal heart sound and no murmurs GI soft to palpation, non-tender and non-distended; Negative for hepatosplenomegaly Extremity General Extremity: edema; Negative for clubbing or cyanosis Skin no rashes or lesions noted Neuro no focal motor deficits and no sensory deficits noted Psych Mood & Affect: flat affect Assessment & Plan Assessment/Plan (1) Acute respiratory failure with hypoxia: (2) Bilateral interstitial pneumonia: PLAN: #Acute hypoxic respiratory failure due to bilateral pneumonia * Has been weaned down to 4 L of oxygen by nasal cannula * Completed meropenem * blood and sputum cultures show no growth so far. * Transition to prednisone * critical care on board * Continue with diuretics monitor renal function * titrate oxygen to maintain sats >90% * Continue with speech therapy given the risk for continued aspiration, continued with diet modifications * PT/OT for possible placement, continue to recommend SNF #Acute metabolic encephalopathy due to bilateral pneumonia and acute hypoxic respiratory failure * Encephalopathy has resolved #Sepsis due to bilateral pneumonia/STEVEN on CKD 3a * Completed IV meropenem * blood and urine cultures negative * covid test was negative * We will continue to monitor, STEVEN has resolved #Elevated D dimer: CTA was negative for PE. #Paroxysmal Atrial fibrillation * patient noted to be going into intermittent afib per nurses. Continue with p.o. metoprolol, she is now normal sinus * will monitor per telemetry for afib. * 2D echo showed EF of 55-60%, with normal left ventricle and normal right ventricle and still function. * Has not been noted to be in A. fib again. #Bipolar disorder and depression: on citalopram and topiramate #Type 2 diabetes mellitus: metformin on hold due to lactic acidosis * Accu-Cheks AC at bedtime, continue with sliding scale insulin. Will make adjustments as necessary DVT: heparin Charges/Coding Visit Charges Inpatient E&M: 84763 Subs Hosp L2
[2021-09-04 17:50] LABS: Bedside Glucose 140 mg/dL (70-110)
[2021-09-04] MEDS: Insulin Lispro 100 UNIT/ML INSULN.PEN SC (20:23)
[2021-09-04 21:51] LABS: Bedside Glucose 173 mg/dL (70-110)
[2021-09-05] VITALS (12 sets, daily range): BP systolic 92–114; BP diastolic 53–66; PULSE 55–84; RESP 14–21; TEMP 36.6–36.8; O2SAT 91–96
[2021-09-05] MEDS: Ipratropium/Albuterol Sulfate 3 ML AMPUL.NEB INHALATION ×4 (07:42→19:10)
[2021-09-05 07:55] LABS: Anion Gap 2 (5-15); BUN 30 mg/dL (7-18); BUN/Creat Ratio 40.5 RATIO (10-20); Calcium,Total 8.3 mg/dL (8.5-10.1); Chloride 107 mmol/L (98-107); Creatinine, Serum 0.74 mg/dL (0.55-1.02); EST Glomerular Filtration Rate 85 mL/min (>60); Est Glom Filt Rate - Afr Amer 103 mL/min (>60); Estimated Creatinine Clearance 67.71 ml/min; Glucose 69 mg/dL (74-106); Sodium Level 140 mmol/L (136-145)
--- NOTE | 2021-09-05 08:30 | PN.CC_ITS ---
Assessment & Plan Assessment/Plan (1) Sepsis: PLAN: RECOMMENDATIONS: 1. Continue to wean supplemental oxygen to maintain saturations at or above 90%. 2. Monitor off antibiotics 3. Maintain modified diet per speech therapy. Speech therapy working to strengthen swallow 4. Recommend empiric use of BiPAP therapy with naps and nightly. Sleep study as an outpatient if compliant 5. Continue scheduled bronchodilators. Transition to prednisone and weaned over 12 to 14 days 6. Continue appropriate DVT prophylaxis. 7. Okay to transfer to [facility] when available IMPRESSIONS: 1. Sepsis Sepsis due to suspected pneumonia with acute sepsis related organ dysfunction as evidenced by acute respiratory failure necessitating noninvasive positive pressure ventilatory support, acute kidney injury and lactic acidemia. The patient does have an extensive smoking history and likely has underlying obstructive lung disease. Continue scheduled bronchodilators. Completed course of antibiotics. Steroids were transitioned to prednisone and can be weaned over 12 to 14 days. Clinical suspicion for recurrent aspiration leading to current status. Plan to continue to wean supplemental oxygen to maintain saturations at or above 90%. Encourage incentive spirometer use and mobilize patient as tolerated. Over concerns for aspiration, the patient is currently on a modified diet and being followed by speech therapy. Patient should follow-up in our office in 4 weeks with nurse practitioner. 2. Acute on chronic kidney disease Resolved. Likely prerenal in etiology and related to #1. Continue to monitor urine output. No current indication for renal replacement therapy. Diuretic therapy is somewhat complicated given patient's marginal blood pressures. 3. Chronic tobacco dependency/questionable obstructive lung disease acute hypoxic respiratory insufficiency Smoking cessation counseling was provided. Nicotine replacement therapy can be offered to the patient while admitted to the hospital. The patient will be continued on supplemental oxygen along with scheduled bronchodilators and steroids. Patient likely will require a 12 to 14-day taper with outpatient follow-up for quantification clarification of lung function. Patient would likely benefit from evaluation for sleep apnea, but has not been compliant with noninvasive therapy while hospitalized. If patient is not willing to use a BiPAP, unclear if sleep study will be of significant utility. 4. Morbid obesity/hypertension/hyperlipidemia/diabetes mellitus/GERD/bipolar disorder Complicates care, management, recovery and prognosis. Continue home medications as indicated. This note was generated with TranslationExchangeation software. It may contain incorrect words, spelling, and punctuation that were not noted in checking the note before signing. Subjective Subjective Patient did well overnight. No acute issues were reported. Patient subjectively feels that she is improving from respiratory standpoint, but is amazed that how weak my legs are. Patient states she did work with therapy and was able to get to the chair yesterday. Objective Data Objective Data Vital Signs: Vital Signs Temp Pulse Resp BP Pulse Ox 36.8 C 59 L 20 H 105/62 91 09/05/21 03:24 09/05/21 07:42 09/05/21 07:42 09/05/21 03:24 09/05/21 07:42 Oxygen Flow Rate (L/min) [ 4 AMBULATING with Oxygen #3] Oxygen Flow Rate (L/min) [ 3 AMBULATING with Oxygen #2] Oxygen Flow Rate (L/min) [ 2 AMBULATING with Oxygen #1] Oxygen Flow Rate (L/min) 3 Oxygen Delivery Method Nasal Cannula Weight: 112.6 kg Body Mass Index (BMI) 43.7 Intake & Output: Intake and Output for Last 24 Hours 09/03/21 09/04/21 09/05/21 23:59 23:59 23:59 Intake Total 660 / 660 630 / 630 120 / 120 Output Total 800 / 1400 2650 / 2650 Balance -140 / -740 -2020 / -2020 120 / 120 Lab / Micro Data Result Diagrams: 09/03/21 04:29 09/05/21 06:27 Labs: Laboratory Results - last 24 hr 09/04/21 11:52: POC Glucose 144 H 09/04/21 17:18: POC Glucose 140 H 09/04/21 20:22: POC Glucose 173 H 09/05/21 06:27: Sodium 140, Potassium 4.0, Chloride 107, Carbon Dioxide 31.0, Anion Gap 2 L, BUN 30 H, Creatinine 0.74, Estim Creat Clear Calc 67.71, Est GFR (MDRD) Af Amer 103, Est GFR (MDRD) Non-Af 85, BUN/Creatinine Ratio 40.5 H, Glucose 69 L, Calcium 8.3 L Micro: Microbiology 08/25/21 16:00 Blood Culture (Wb) - Anticubital Right Blood Culture - Final No growth in 5 days. 08/25/21 16:00 Blood Culture (Wb) - Anticubital Right Blood Culture - Final No growth in 5 days. 08/25/21 23:00 Urine, Catheterized Urine Culture - Final Culture exhibits no growth. 08/25/21 Unknown Mucosa - Nasopharyngeal Respiratory Panel (PCR) - Final 08/25/21 23:00 Urine Catheter - Catheter Legionella Antigen - Final 08/25/21 23:00 Urine Catheter - Catheter Streptococcus pneumoniae Antigen (M - Final Physical Exam Const alert, oriented x3 and no apparent distress Constitutional Narrative: No conversational dyspnea General Appearance: cooperative Nutritional Appearance: morbidly obese HEENT normocephalic and head/scalp atraumatic Eyes PERRL, EOMs intact bilaterally and conjunctivae normal Neck supple General: trachea midline Chest inspection of chest normal Resp Auscultation: diminished lung sounds; Negative for rales, rhonchi or wheezes Cardio regular rate, regular rhythm, S1 normal heart sound and S2 normal heart sound GI normal to inspection, nondistended, normoactive bowel sounds Extremity General Extremity: Negative for clubbing, cyanosis or edema Skin no rashes or lesions noted Neuro CN's II-XII intact bilaterally and no focal motor deficits Psych Mood & Affect: flat affect Charges/Coding Visit Charges Inpatient E&M: 32488 Subs Hosp L2
--- NOTE | 2021-09-05 09:40 | PN.HOSP_ITS ---
Subjective Subjective Doing well, her oxygen requirements are improving now that she is no longer aspirating with her modified diet Objective Data Objective Data Vital Signs: Vital Signs Temp Pulse Resp BP Pulse Ox 98.1 F 64 16 105/53 L 94 09/05/21 09:12 09/05/21 09:12 09/05/21 09:12 09/05/21 09:12 09/05/21 09:12 Oxygen Flow Rate (L/min) [ 4 AMBULATING with Oxygen #3] Oxygen Flow Rate (L/min) [ 3 AMBULATING with Oxygen #2] Oxygen Flow Rate (L/min) [ 2 AMBULATING with Oxygen #1] Oxygen Flow Rate (L/min) 3 Oxygen Delivery Method Nasal Cannula Weight: 248 lb 3.848 oz Body Mass Index (BMI) 43.7 Intake & Output: Intake and Output for Last 24 Hours 09/04/21 09/05/21 09/06/21 03:59 03:59 03:59 Intake Total 540 / 540 750 / 750 Output Total 1400 / 1400 2049 / 2049 Balance -860 / -860 -1300 / -1300 Lab / Micro Data Result Diagrams: 09/03/21 04:29 09/05/21 06:27 Labs: Laboratory Results - last 24 hr 09/04/21 11:52: POC Glucose 144 H 09/04/21 17:18: POC Glucose 140 H 09/04/21 20:22: POC Glucose 173 H 09/05/21 06:27: Sodium 140, Potassium 4.0, Chloride 107, Carbon Dioxide 31.0, Anion Gap 2 L, BUN 30 H, Creatinine 0.74, Estim Creat Clear Calc 67.71, Est GFR (MDRD) Af Amer 103, Est GFR (MDRD) Non-Af 85, BUN/Creatinine Ratio 40.5 H, Glucose 69 L, Calcium 8.3 L Micro: Microbiology 08/25/21 16:00 Blood Culture (Wb) - Anticubital Right Blood Culture - Final No growth in 5 days. 08/25/21 16:00 Blood Culture (Wb) - Anticubital Right Blood Culture - Final No growth in 5 days. 08/25/21 23:00 Urine, Catheterized Urine Culture - Final Culture exhibits no growth. 08/25/21 Unknown Mucosa - Nasopharyngeal Respiratory Panel (PCR) - Final 08/25/21 23:00 Urine Catheter - Catheter Legionella Antigen - Final 08/25/21 23:00 Urine Catheter - Catheter Streptococcus pneumoniae Antigen (M - Final Physical Exam Narrative Const alert, oriented x3 and no apparent distress General Appearance: cooperative Nutritional Appearance: morbidly obese HEENT normocephalic and moist oral mucous membranes Eyes PERRL, EOMs intact bilaterally and conjunctivae normal Neck supple and no JVD Resp normal respiratory effort, no retractions and no use of accessory muscles Auscultation: diminished lung sounds; Negative for crackles, rales, rhonchi or wheezes Cardio regular rate, regular rhythm, S1 normal heart sound, S2 normal heart sound and no murmurs GI soft to palpation, non-tender and non-distended; Negative for hepatosplenomegaly Extremity General Extremity: edema; Negative for clubbing or cyanosis Skin no rashes or lesions noted Neuro no focal motor deficits and no sensory deficits noted Psych Mood & Affect: flat affect Assessment & Plan Assessment/Plan (1) Acute respiratory failure with hypoxia: (2) Bilateral interstitial pneumonia: PLAN: #Acute hypoxic respiratory failure due to bilateral pneumonia * Has been weaned down to 4 L of oxygen by nasal cannula * Completed meropenem * blood and sputum cultures show no growth so far. * Transition to prednisone * critical care on board * Continue with diuretics monitor renal function * titrate oxygen to maintain sats >90% * Continue with speech therapy given the risk for continued aspiration, continued with diet modifications * PT/OT for possible placement, continue to recommend SNF #Acute metabolic encephalopathy due to bilateral pneumonia and acute hypoxic respiratory failure * Encephalopathy has resolved #Sepsis due to bilateral pneumonia/STEVEN on CKD 3a * Completed IV meropenem * blood and urine cultures negative * covid test was negative * We will continue to monitor, STEVEN has resolved #Elevated D dimer: CTA was negative for PE. #Paroxysmal Atrial fibrillation * patient noted to be going into intermittent afib per nurses. Continue with p.o. metoprolol, she is now normal sinus * will monitor per telemetry for afib. * 2D echo showed EF of 55-60%, with normal left ventricle and normal right ventricle and still function. * Has not been noted to be in A. fib again. #Bipolar disorder and depression: on citalopram and topiramate #Type 2 diabetes mellitus: metformin on hold due to lactic acidosis * Accu-Cheks AC at bedtime, continue with sliding scale insulin. Will make adjustments as necessary DVT: heparin Charges/Coding Visit Charges Inpatient E&M: 39670 Subs Hosp L2
[2021-09-05] MEDS: APIXABAN 5 MG TABLET PO ×2 (10:02→22:55)
[2021-09-05] MEDS: Topiramate 25 MG Tablet PO ×2 (10:02→22:59)
[2021-09-05] MEDS: LORazepam 0.5 MG Tablet PO (10:02)
[2021-09-05] MEDS: predniSONE 20 MG Tablet 40 MG PO (10:03)
[2021-09-05] MEDS: Mirabegron 25 MG TAB.ER.24H PO (10:03)
[2021-09-05] MEDS: Amantadine 100 MG Capsule PO ×2 (10:03→22:58)
[2021-09-05] MEDS: Pantoprazole Sodium 40 MG Tablet PO (10:03)
[2021-09-05] MEDS: QUEtiapine 100 MG Tablet 200 MG PO ×2 (10:03→22:59)
[2021-09-05] MEDS: Furosemide 20 MG Tablet PO ×2 (10:03→16:47)
[2021-09-05] MEDS: Citalopram 10 MG Tablet PO (10:04)
[2021-09-05] MEDS: Menthol/Lanolin/Calamine/Znox 113 GM Tube 1 APPLIC TOPICAL ×2 (10:04→22:50)
[2021-09-05] MEDS: Fludrocortisone Acetate 0.1 MG Tablet PO (10:04)
[2021-09-05 11:46] LABS: Bedside Glucose 91 mg/dL (70-110)
[2021-09-05] MEDS: Insulin Lispro 100 UNIT/ML INSULN.PEN SC (16:47)
[2021-09-05 17:11] LABS: Bedside Glucose 169 mg/dL (70-110)
[2021-09-05] MEDS: Metoprolol Tartrate 25 MG Tablet PO (23:20)
[2021-09-05 23:31] LABS: Bedside Glucose 133 mg/dL (70-110)
[2021-09-06] VITALS (14 sets, daily range): BP systolic 101–112; BP diastolic 55–75; PULSE 54–84; RESP 16–20; TEMP 36.6–36.9; O2SAT 93–96
[2021-09-06] MEDS: Ipratropium/Albuterol Sulfate 3 ML AMPUL.NEB INHALATION ×4 (06:53→19:25)
[2021-09-06 07:01] LABS: Bedside Glucose 96 mg/dL (70-110)
[2021-09-06 07:43] LABS: Anion Gap 4 (5-15); BUN 29 mg/dL (7-18); BUN/Creat Ratio 35.1 RATIO (10-20); Calcium,Total 8.3 mg/dL (8.5-10.1); Chloride 105 mmol/L (98-107); Creatinine, Serum 0.83 mg/dL (0.55-1.02); EST Glomerular Filtration Rate 75 mL/min (>60); Est Glom Filt Rate - Afr Amer 91 mL/min (>60); Estimated Creatinine Clearance 60.37 ml/min; Glucose 105 mg/dL (74-106); Potassium 3.6 mmol/L (3.5-5.1); Sodium Level 140 mmol/L (136-145)
--- NOTE | 2021-09-06 08:27 | PN.CC_ITS ---
Assessment & Plan Assessment/Plan (1) Sepsis: PLAN: RECOMMENDATIONS: 1. Continue to wean supplemental oxygen to maintain saturations at or above 90%. 2. Monitor off antibiotics 3. Maintain modified diet per speech therapy. Speech therapy working to strengthen swallow 4. Recommend empiric use of BiPAP therapy with naps and nightly. Sleep study as an outpatient if compliant 5. Continue scheduled bronchodilators. Transition to prednisone and weaned over 12 to 14 days 6. Continue appropriate DVT prophylaxis. 7. Hemodynamically stable on minimal nasal cannula oxygen. Will sign off from my pulmonary/critical care perspective IMPRESSIONS: 1. Sepsis Sepsis due to suspected pneumonia with acute sepsis related organ d ysfunction as evidenced by acute respiratory failure necessitating noninvasive positive pressure ventilatory support, acute kidney injury and lactic acidemia. The patient does have an extensive smoking history and likely has underlying obstructive lung disease. Continue scheduled bronchodilators. Completed course of antibiotics. Steroids were transitioned to prednisone and can be weaned over 12 to 14 days. Clinical suspicion for recurrent aspiration leading to current status. Plan to continue to wean supplemental oxygen to maintain saturations at or above 90%. Encourage incentive spirometer use and mobilize patient as tolerated. Over concerns for aspiration, the patient is currently on a modified diet and being followed by speech therapy. Patient should follow-up in our office in 4 weeks after discharge from [facility] with nurse practitioner for respiratory work-up. 2. Acute on chronic kidney disease Resolved. Likely prerenal in etiology and related to #1. Continue to monitor urine output. No current indication for renal replacement therapy. Diuretic therapy is somewhat complicated given patient's marginal blood pressures. 3. Chronic tobacco dependency/questionable obstructive lung disease acute hypoxic respiratory insufficiency Smoking cessation counseling was provided. Nicotine replacement therapy can be offered to the patient while admitted to the hospital. The patient will be continued on supplemental oxygen along with scheduled bronchodilators and steroids. Patient likely will require a 12 to 14-day taper with outpatient follow-up for quantification clarification of lung function. Patient would likely benefit from evaluation for sleep apnea, but has not been compliant with noninvasive therapy while hospitalized. If patient is not willing to use a BiPAP, unclear if sleep study will be of significant utility. We will hold additional Lasix therapy. 4. Morbid obesity/hypertension/hyperlipidemia/diabetes mellitus/GERD/bipolar disorder Complicates care, management, recovery and prognosis. Continue home medications as indicated. This note was generated with Prixtelation software. It may contain incorrect words, spelling, and punctuation that were not noted in checking the note before signing. Subjective Subjective Patient did okay overnight. No acute issues were reported. Patient subjectively feels improved compared to previous. Patient still has dyspnea on exertion, but main complaint is weakness of the lower extremities with walking. Patient is currently awaiting precertification for ECF. Objective Data Objective Data Vital Signs: Vital Signs Temp Pulse Resp BP Pulse Ox 36.6 C 64 16 112/75 93 09/06/21 02:47 09/06/21 07:00 09/06/21 06:53 09/06/21 02:47 09/06/21 06:53 Oxygen Flow Rate (L/min) [ 4 AMBULATING with Oxygen #3] Oxygen Flow Rate (L/min) [ 3 AMBULATING with Oxygen #2] Oxygen Flow Rate (L/min) [ 2 AMBULATING with Oxygen #1] Oxygen Flow Rate (L/min) 3 Oxygen Delivery Method Nasal Cannula Weight: 110.9 kg Body Mass Index (BMI) 43.7 Intake & Output: Intake and Output for Last 24 Hours 09/04/21 09/05/21 09/06/21 23:59 23:59 23:59 Intake Total 630 / 630 960 / 960 Output Total 2650 / 2650 1075 / 1275 700 / 700 Balance -2020 / -2020 -115 / -315 -700 / -700 Lab / Micro Data Result Diagrams: 09/03/21 04:29 09/06/21 05:50 Labs: Laboratory Results - last 24 hr 09/05/21 11:41: POC Glucose 91 09/05/21 16:45: POC Glucose 169 H 09/05/21 23:13: POC Glucose 133 H 09/06/21 05:50: Sodium 140, Potassium 3.6, Chloride 105, Carbon Dioxide 31.0, Anion Gap 4 L, BUN 29 H, Creatinine 0.83, Estim Creat Clear Calc 60.37, Est GFR (MDRD) Af Amer 91, Est GFR (MDRD) Non-Af 75, BUN/Creatinine Ratio 35.1 H, Glucose 105, Calcium 8.3 L 09/06/21 06:54: POC Glucose 96 Micro: Microbiology 08/25/21 16:00 Blood Culture (Wb) - Anticubital Right Blood Culture - Final No growth in 5 days. 08/25/21 16:00 Blood Culture (Wb) - Anticubital Right Blood Culture - Final No growth in 5 days. 08/25/21 23:00 Urine, Catheterized Urine Culture - Final Culture exhibits no growth. 08/25/21 Unknown Mucosa - Nasopharyngeal Respiratory Panel (PCR) - Final 08/25/21 23:00 Urine Catheter - Catheter Legionella Antigen - Final 08/25/21 23:00 Urine Catheter - Catheter Streptococcus pneumoniae Antigen (M - Final Physical Exam Const alert, oriented x3 and no apparent distress Constitutional Narrative: No conversational dyspnea General Appearance: cooperative Nutritional Appearance: morbidly obese HEENT normocephalic and head/scalp atraumatic Eyes PERRL, EOMs intact bilaterally and conjunctivae normal Neck supple General: trachea midline Chest inspection of chest normal Resp Auscultation: diminished lung sounds; Negative for rales, rhonchi or wheezes Cardio regular rate, regular rhythm, S1 normal heart sound and S2 normal heart sound GI normal to inspection, nondistended, normoactive bowel sounds Extremity General Extremity: Negative for clubbing, cyanosis or edema Skin no rashes or lesions noted Neuro CN's II-XII intact bilaterally and no focal motor deficits Psych Mood & Affect: flat affect Charges/Coding Visit Charges Inpatient E&M: 73586 Subs Hosp L2
[2021-09-06] MEDS: Fludrocortisone Acetate 0.1 MG Tablet PO (08:55)
[2021-09-06] MEDS: predniSONE 20 MG Tablet 40 MG PO (08:55)
[2021-09-06] MEDS: Menthol/Lanolin/Calamine/Znox 113 GM Tube 1 APPLIC TOPICAL ×2 (08:55→21:58)
[2021-09-06] MEDS: QUEtiapine 100 MG Tablet 200 MG PO ×2 (08:56→22:03)
[2021-09-06] MEDS: Mirabegron 25 MG TAB.ER.24H PO (08:56)
[2021-09-06] MEDS: Citalopram 10 MG Tablet PO (08:56)
[2021-09-06] MEDS: Amantadine 100 MG Capsule PO ×2 (08:56→22:04)
[2021-09-06] MEDS: Pantoprazole Sodium 40 MG Tablet PO (08:56)
[2021-09-06] MEDS: APIXABAN 5 MG TABLET PO ×2 (08:56→21:58)
[2021-09-06] MEDS: Topiramate 25 MG Tablet PO ×2 (08:56→22:04)
[2021-09-06] MEDS: LORazepam 0.5 MG Tablet PO (08:56)
[2021-09-06] MEDS: Furosemide 20 MG Tablet PO ×2 (08:56→17:06)
--- NOTE | 2021-09-06 08:57 | NURSING ---
Scanned all morning medications and then computer crashed as fingerprint authentication was in progress. unable to verify medications given with second user. Manually entered medications administered at this time due to computer failure
--- NOTE | 2021-09-06 09:55 | PN.HOSP_ITS ---
Subjective Subjective Feels well today, awaiting discharge to [facility] Objective Data Objective Data Vital Signs: Vital Signs Temp Pulse Resp BP Pulse Ox 98.4 F 60 16 102/59 L 96 09/06/21 08:45 09/06/21 08:45 09/06/21 08:45 09/06/21 08:45 09/06/21 08:47 Oxygen Flow Rate (L/min) [ 4 AMBULATING with Oxygen #3] Oxygen Flow Rate (L/min) [ 3 AMBULATING with Oxygen #2] Oxygen Flow Rate (L/min) [ 2 AMBULATING with Oxygen #1] Oxygen Flow Rate (L/min) 3 Oxygen Delivery Method Nasal Cannula Weight: 244 lb 7.882 oz Body Mass Index (BMI) 43.7 Intake & Output: Intake and Output for Last 24 Hours 09/05/21 09/06/21 09/07/21 03:59 03:59 03:59 Intake Total 750 / 750 840 / 840 Output Total 0 / 2049 1275 / 1275 500 / 500 Balance -1300 / -1300 -435 / -435 -500 / -500 Lab / Micro Data Result Diagrams: 09/03/21 04:29 09/06/21 05:50 Labs: Laboratory Results - last 24 hr 09/05/21 11:41: POC Glucose 91 09/05/21 16:45: POC Glucose 169 H 09/05/21 23:13: POC Glucose 133 H 09/06/21 05:50: Sodium 140, Potassium 3.6, Chloride 105, Carbon Dioxide 31.0, Anion Gap 4 L, BUN 29 H, Creatinine 0.83, Estim Creat Clear Calc 60.37, Est GFR (MDRD) Af Amer 91, Est GFR (MDRD) Non-Af 75, BUN/Creatinine Ratio 35.1 H, Glucose 105, Calcium 8.3 L 09/06/21 06:54: POC Glucose 96 Micro: Microbiology 08/25/21 16:00 Blood Culture (Wb) - Anticubital Right Blood Culture - Final No growth in 5 days. 08/25/21 16:00 Blood Culture (Wb) - Anticubital Right Blood Culture - Final No growth in 5 days. 08/25/21 23:00 Urine, Catheterized Urine Culture - Final Culture exhibits no growth. 08/25/21 Unknown Mucosa - Nasopharyngeal Respiratory Panel (PCR) - Final 08/25/21 23:00 Urine Catheter - Catheter Legionella Antigen - Final 08/25/21 23:00 Urine Catheter - Catheter Streptococcus pneumoniae Antigen (M - Final Physical Exam Narrative Const alert, oriented x3 and no apparent distress General Appearance: cooperative Nutritional Appearance: morbidly obese HEENT normocephalic and moist oral mucous membranes Eyes PERRL, EOMs intact bilaterally and conjunctivae normal Neck supple and no JVD Resp normal respiratory effort, no retractions and no use of accessory muscles Auscultation: diminished lung sounds; Negative for crackles, rales, rhonchi or wheezes Cardio regular rate, regular rhythm, S1 normal heart sound, S2 normal heart sound and no murmurs GI soft to palpation, non-tender and non-distended; Negative for hepatosplenomegaly Extremity General Extremity: edema; Negative for clubbing or cyanosis Skin no rashes or lesions noted Neuro no focal motor deficits and no sensory deficits noted Psych Mood & Affect: flat affect Assessment & Plan Assessment/Plan (1) Acute respiratory failure with hypoxia: (2) Bilateral interstitial pneumonia: PLAN: #Acute hypoxic respiratory failure due to bilateral pneumonia * Has been weaned down to 2-3 L of oxygen by nasal cannula * Completed meropenem * blood and sputum cultures show no growth so far. * Transition to prednisone * critical care on board * Continue with diuretics monitor renal function * titrate oxygen to maintain sats >90% * Continue with speech therapy given the risk for continued aspiration, continued with diet modifications * PT/OT for possible placement, continue to recommend SNF #Acute metabolic encephalopathy due to bilateral pneumonia and acute hypoxic respiratory failure * Encephalopathy has resolved #Sepsis due to bilateral pneumonia/STEVEN on CKD 3a * Completed IV meropenem * blood and urine cultures negative * covid test was negative * We will continue to monitor, STEVEN has resolved #Elevated D dimer: CTA was negative for PE. #Paroxysmal Atrial fibrillation * patient noted to be going into intermittent afib per nurses. Continue with p.o. metoprolol, she is now normal sinus * will monitor per telemetry for afib. * 2D echo showed EF of 55-60%, with normal left ventricle and normal right ventricle and still function. * Has not been noted to be in A. fib again. #Bipolar disorder and depression: on citalopram and topiramate #Type 2 diabetes mellitus: metformin on hold due to lactic acidosis * Accu-Cheks AC at bedtime, continue with sliding scale insulin. Will make ad justments as necessary DVT: heparin Charges/Coding Visit Charges Inpatient E&M: 70874 Subs Hosp L2
[2021-09-06] MEDS: Insulin Lispro 100 UNIT/ML INSULN.PEN SC ×2 (11:03→17:06)
[2021-09-06 11:16] LABS: Bedside Glucose 163 mg/dL (70-110)
[2021-09-06 16:36] LABS: Bedside Glucose 164 mg/dL (70-110)
[2021-09-06 22:20] LABS: Bedside Glucose 133 mg/dL (70-110)
[2021-09-07] VITALS (8 sets, daily range): BP systolic 89–108; BP diastolic 58–67; PULSE 58–79; RESP 16–20; TEMP 36.6–36.8; O2SAT 92–94
[2021-09-07 05:48] LABS: Anion Gap 3 (5-15); BUN 31 mg/dL (7-18); BUN/Creat Ratio 35.1 RATIO (10-20); Calcium,Total 8.5 mg/dL (8.5-10.1); Chloride 106 mmol/L (98-107); Creatinine, Serum 0.88 mg/dL (0.55-1.02); EST Glomerular Filtration Rate 69 mL/min (>60); Est Glom Filt Rate - Afr Amer 84 mL/min (>60); Estimated Creatinine Clearance 56.94 ml/min; Glucose 77 mg/dL (74-106); Potassium 3.8 mmol/L (3.5-5.1); Sodium Level 140 mmol/L (136-145)
[2021-09-07] MEDS: Ipratropium/Albuterol Sulfate 3 ML AMPUL.NEB INHALATION ×2 (07:07→10:24)
[2021-09-07 07:10] LABS: Bedside Glucose 71 mg/dL (70-110)
--- NOTE | 2021-09-07 07:52 | PN.HOSP_ITS ---
Objective Data Objective Data Vital Signs: Vital Signs Temp Pulse Resp BP Pulse Ox 98.2 F 58 L 17 108/62 94 09/07/21 02:40 09/07/21 06:54 09/07/21 02:40 09/07/21 02:40 09/07/21 02:40 Oxygen Flow Rate (L/min) [ 4 AMBULATING with Oxygen #3] Oxygen Flow Rate (L/min) [ 3 AMBULATING with Oxygen #2] Oxygen Flow Rate (L/min) [ 2 AMBULATING with Oxygen #1] Oxygen Flow Rate (L/min) 2 Oxygen Delivery Method Nasal Cannula Weight: 241 lb 10.026 oz Body Mass Index (BMI) 43.7 Intake & Output: Intake and Output for Last 24 Hours 09/05/21 09/06/21 09/07/21 23:59 23:59 23:59 Intake Total 960 / 960 960 / 960 Output Total 1075 / 1275 1375 / 1600 475 / 475 Balance -115 / -315 -415 / -640 -475 / -475 Lab / Micro Data Result Diagrams: 09/03/21 04:29 09/07/21 04:39 Labs: Laboratory Results - last 24 hr 09/06/21 11:02: POC Glucose 163 H 09/06/21 16:29: POC Glucose 164 H 09/06/21 21:57: POC Glucose 133 H 09/07/21 04:39: Sodium 140, Potassium 3.8, Chloride 106, Carbon Dioxide 31.0, Anion Gap 3 L, BUN 31 H, Creatinine 0.88, Estim Creat Clear Calc 56.94, Est GFR (MDRD) Af Amer 84, Est GFR (MDRD) Non-Af 69, BUN/Creatinine Ratio 35.1 H, Glucose 77, Calcium 8.5 09/07/21 06:38: POC Glucose 71 Micro: Microbiology 08/25/21 16:00 Blood Culture (Wb) - Anticubital Right Blood Culture - Final No growth in 5 days. 08/25/21 16:00 Blood Culture (Wb) - Anticubital Right Blood Culture - Final No growth in 5 days. 08/25/21 23:00 Urine, Catheterized Urine Culture - Final Culture exhibits no growth. 08/25/21 Unknown Mucosa - Nasopharyngeal Respiratory Panel (PCR) - Final 08/25/21 23:00 Urine Catheter - Catheter Legionella Antigen - Final 08/25/21 23:00 Urine Catheter - Catheter Streptococcus pneumoniae Antigen (M - Final Assessment & Plan Assessment/Plan (1) Acute respiratory failure with hypoxia: (2) Bilateral interstitial pneumonia: PLAN: #Acute hypoxic respiratory failure due to bilateral pneumonia * Has been weaned down to 2-3 L of oxygen by nasal cannula * Completed meropenem * blood and sputum cultures show no growth so far. * Transition to prednisone * critical care on board * Continue with diuretics monitor renal function * titrate oxygen to maintain sats >90% * Continue with speech therapy given the risk for continued aspiration, continued with diet modifications * PT/OT for possible placement, continue to recommend SNF #Acute metabolic encephalopathy due to bilateral pneumonia and acute hypoxic respiratory failure * Encephalopathy has resolved #Sepsis due to bilateral pneumonia/STEVEN on CKD 3a * Completed IV meropenem * blood and urine cultures negative * covid test was negative * We will continue to monitor, STEVEN has resolved #Elevated D dimer: CTA was negative for PE. #Paroxysmal Atrial fibrillation * patient noted to be going into intermittent afib per nurses. Continue with p.o. metoprolol, she is now normal sinus * will monitor per telemetry for afib. * 2D echo showed EF of 55-60%, with normal left ventricle and normal right ventricle and still function. * Has not been noted to be in A. fib again. #Bipolar disorder and depression: on citalopram and topiramate #Type 2 diabetes mellitus: metformin on hold due to lactic acidosis * Accu-Cheks AC at bedtime, continue with sliding scale insulin. Will make adjustments as necessary DVT: heparin
--- NOTE | 2021-09-07 09:11 | CASEMGMT ---
ANGI received a call from Erica at [facility]. Patient was approved and can come whenever she is ready. ANGI told her this will likely be today, but SW will let her know. Farnaz ORTIZ
[2021-09-07] MEDS: Topiramate 25 MG Tablet PO (09:13)
[2021-09-07] MEDS: predniSONE 20 MG Tablet 40 MG PO (09:14)
[2021-09-07] MEDS: Amantadine 100 MG Capsule PO (09:14)
[2021-09-07] MEDS: Citalopram 10 MG Tablet PO (09:14)
[2021-09-07] MEDS: APIXABAN 5 MG TABLET PO (09:14)
[2021-09-07] MEDS: Furosemide 20 MG Tablet PO (09:14)
[2021-09-07] MEDS: QUEtiapine 100 MG Tablet 200 MG PO (09:15)
[2021-09-07] MEDS: Pantoprazole Sodium 40 MG Tablet PO (09:15)
[2021-09-07] MEDS: Mirabegron 25 MG TAB.ER.24H PO (09:15)
[2021-09-07] MEDS: Menthol/Lanolin/Calamine/Znox 113 GM Tube 1 APPLIC TOPICAL (09:16)
--- NOTE | 2021-09-07 09:16 | TREXTCAR_ITS ---
Diet 08/25/21 20:41 Diet: Consistent Carb - Calorie Controlled Food consistency:: Mechanical (Minced/Moist) Liquid Consistency:: [place]/Mildly Thick Dietary Modifications:: Cardiac / Heart Healthy Is pt able to select menu?: No Diet Comments: Direct supervision, Sips one at a time How many daily calories?: 1600 calorie Routine Orders/Code Status Suppository Type: Dulcolax 10mg Suppository Frequency: Daily PRN Routine Lab Work: CBC and BMP (CBC and BMP weekly) Code Status: Full Code Therapies Weight Bearing: Weight bearing as tolerated Physical Therapy: Eval and Treat Occupational Therapy: Eval and Treat Speech Therapy: Eval and Treat Problem/Diagnosis (1) Acute respiratory failure with hypoxia: Status: Acute (2) Bilateral interstitial pneumonia: Status: Acute Allergies/Procedures Done in Hospital Allergies Penicillins Allergy (Intermediate, Verified 08/25/21 15:44) Hives carbamazepine [From Tegretol] Adverse Reaction (Intermediate, Verified 08/25/21 15:44) Nausea benztropine Adverse Reaction (Verified 08/25/21 15:44) Unknown diazepam [From Valium] Adverse Reaction (Verified 08/25/21 15:44) Other Sulfa (Sulfonamide Antibiotics) Adverse Reaction (Verified 08/25/21 15:44) Nausea thioridazine Adverse Reaction (Verified 08/25/21 15:44) Nausea thioridazine HCl [From Mellaril] Adverse Reaction (Verified 08/25/21 15:44) Other Type of Care/Length of Stay Estimated LOS: Convalescent Care Less Than 30 days Type of Care Needed: Intermediate Rehab Potential: Good Prognosis: Good Additional Orders/Day of Discharge Day of Discharge: 09/07/21 Dietary and Speech Recommendations Dietitian Recommendations/Changes: continue cardiac, 1600 calorie controlled, consistent CHO diet- texture/consistency per WATER SERVICE DISPATCHER Discharge Plan Admission Admit Date/Time: 08/25/21 19:22 Primary Reason for Your Visit: Bilateral pneumonia Attending Provider: Peter Herbert Primary Care Provider: Homer Bradford Consulting Providers: Dallin Christopher Discharge Orders/Prescriptions Prescriptions: New sodium chloride [Deep Sea Nasal] 0.65 % Aerosol,[place] 2 spray NASAL TID PRN PRN (Reason: NASAL DRYNESS) Qty: 0 RF: 0 metoprolol tartrate 25 mg Tablet 25 mg PO BID Qty: 0 RF: 0 menthol-zinc oxide [Calmoseptine] 0.44-20.6 % Ointment 1 applic topical BID Qty: 0 RF: 0 ipratropium-albuterol 0.5 mg-3 mg(2.5 mg base)/3 mL Solution For Nebulization 3 ml inhalation Q4HWA.RT PRNQty: 0 RF: 0 furosemide 20 mg Tablet 20 mg PO BIDLX Qty: 0 RF: 0 insulin lispro [Humalog KwikPen Insulin] 100 unit/mL Insulin Pen See Protocol unit subcut ACHS Qty: 0 RF: 0 Eliquis 5 mg Tablet 5 mg PO BID Qty: 0 RF: 0 prednisone 10 mg tablet 10 mg PO DAILY Qty: 25 RF: 0 Continued amantadine HCl 100 mg capsule 100 mg PO BID RF: 0 fludrocortisone 0.1 mg tablet 0.1 mg PO QDAY RF: 0 lorazepam [Ativan] 0.5 mg tablet 0.5 mg PO BID PRN PRN (Reason: Anxiety) RF: 0 lovastatin 20 mg tablet 20 mg PO QDAY RF: 0 melatonin 10 mg capsule 10 mg PO HS PRN (Reason: Sleep) RF: 0 metformin 500 mg tablet 500 mg PO DAILY RF: 0 metoprolol tartrate 25 mg tablet 25 mg PO BID RF: 0 nitroglycerin 0.4 mg tablet, sublingual 0.4 mg SUBLINGUAL Q5M PRN (Reason: CHEST PAIN) RF: 0 omeprazole 40 mg capsule,delayed release(DR/EC) 40 mg PO QDAY RF: 0 hyoscyamine sulfate [Oscimin SR] 0.375 mg tablet extended release 12 hr 0.375 mg PO BID RF: 0 quetiapine [Seroquel] 200 mg tablet 200 mg PO BID RF: 0 spironolactone 25 mg tablet 25 mg PO QDAY RF: 0 albuterol sulfate [Ventolin HFA] 90 mcg/actuation HFA aerosol inhaler 1 puff INHALATION Q6H RF: 0 mirabegron 50 MG tablet extended release 24 hr 25 mg PO DAILY RF: 0 citalopram [Celexa] 10 mg Tablet 10 mg PO DAILY RF: 0 topiramate [Topamax] 25 mg Tablet 25 mg PO BID RF: 0 Changed rizatriptan 10 mg Tablet 10 mg PO DAILY PRN (Reason: migraine headache) Qty: 0 RF: 0 Discontinued trazodone 100 mg tablet 200 mg PO QHS PRN (Reason: Sleep) RF: 0 Referrals / Follow Up: Dallin Christopher DO [STAFF PHYSICIAN] - Within 2 Weeks (Undiagnosed COPD, B/L pneumonia) Homer Bradford MD [Primary Care Provider] - In 1 Week Perez Cortez MD [STAFF PHYSICIAN] - Within 1 Month (PAFIB on metoprolol and Eliqiuis) Disposition Disposition (needs filled in before D/C Order can be placed): Care Home Facility
[2021-09-07] MEDS: Fludrocortisone Acetate 0.1 MG Tablet PO (09:20)
--- NOTE | 2021-09-07 11:00 | PCM.DC.SUM ---
Providers Date of Admission: 08/25/21 Date of Discharge: 09/07/21 Primary Care Physician: Dr. Homer Bradford MD Consultations 08/25/21 20:41 Consult: Accounting Intern / Pulmonary Medicine Routine Consulting Provider: Dallin Christopher Reason for Consult: BL PNA, likely septic shock, resp failure EMERGENT Consult: No MD Notified: Yes Date Notified: 08/25/21 Time Notified: 19:28 Method of Notification: Text Reason For Visit: RESP FAILURE, BL PNA Diagnosis Discharge Diagnosis (1) Acute respiratory failure with hypoxia: Status: Acute Code(s): J96.01 - Acute respiratory failure with hypoxia (2) Bilateral interstitial pneumonia: Status: Acute Code(s): J84.9 - Interstitial pulmonary disease, unspecified Medications at Discharge Home Medications albuterol sulfate 90 mcg/actuation aerosol inhaler 1 puff INHALATION Q6H 06/22/17 amantadine HCl 100 mg capsule 100 mg PO BID 06/22/17 fludrocortisone 0.1 mg tablet 0.1 mg PO QDAY 06/22/17 hyoscyamine sulfate 0.375 mg tablet,extended release,12 hr 0.375 mg PO BID 06/22/17 lorazepam 0.5 mg tablet 0.5 mg PO BID PRN PRN 06/22/17 lovastatin 20 mg tablet 20 mg PO QDAY 06/22/17 melatonin 10 mg capsule 10 mg PO HS PRN 06/22/17 metformin 500 mg tablet 500 mg PO DAILY 06/22/17 metoprolol tartrate 25 mg tablet 25 mg PO BID 06/22/17 nitroglycerin 0.4 mg sublingual tablet 0.4 mg SUBLINGUAL Q5M PRN 06/22/17 omeprazole 40 mg capsule,delayed release 40 mg PO QDAY 06/22/17 quetiapine 200 mg tablet 200 mg PO BID 06/22/17 spironolactone 25 mg tablet 25 mg PO QDAY 06/22/17 mirabegron 25 mg PO DAILY 08/19/20 citalopram [Celexa] 10 mg PO DAILY 08/25/21 topiramate [Topamax] 25 mg PO BID 08/25/21 apixaban [Eliquis] 5 mg PO BID #0 tab 09/07/21 furosemide 20 mg PO BIDLX #0 tab 09/07/21 insulin lispro [Humalog KwikPen Insulin] See Protocol SUBCUT ACHS #0 ml 09/07/21 ipratropium-albuterol 3 ml INHALATION Q4HWA.RT PRN #0 ml 09/07/21 menthol-zinc oxide [Calmoseptine] 1 applic TOPICAL BID #0 g 09/07/21 metoprolol tartrate 25 mg PO BID #0 tab 09/07/21 prednisone 10 mg PO DAILY #25 tab 09/07/21 rizatriptan 10 mg PO DAILY PRN #0 tab 09/07/21 sodium chloride [Deep Sea Nasal] 2 spray NASAL TID PRN PRN #0 ml 09/07/21 Hospital Course Summary of Care Provided Hospital Course: This 61-year-old female admitted with shortness of breath for 2 weeks on 10 L of oxygen. Patient COVID-19 PCR negative. Patient is not vaccinated with COVID-19. Patient further admitted in ICU. Detail hospital course as mentioned below. #Acute hypoxic respiratory failure due to bilateral pneumonia and was admitted in ICU and after improvement transferred to PCU. Patient completed meropenem. Wean down to 2 to 3 L of oxygen. Patient was comanaged with turf sales person. Gradual taper off prednisone. Prescription of prednisone given. Patient also on Lasix 20 mg p.o. twice daily. Patient has been transferred to rehab for further physical, speech/swallow and occupational therapy. On modified diet #Acute metabolic encephalopathy due to bilateral pneumonia and acute hypoxic respiratory failure Encephalopathy has resolved #Sepsis due to bilateral pneumonia Completed IV meropenem blood and urine cultures negative covid test was negative STEVEN on CKD 3a: STEVEN resolved. #Elevated D dimer: CTA was negative for PE. #Paroxysmal Atrial fibrillation Patient had intermittent A. fib, noticed on the isotope technician. Continue with p.o. metoprolol, she is now normal sinus. Heart rate is controlled. On metoprolol and Eliquis. 2D echo showed EF of 55-60%, with normal left ventricle and normal right ventricle and still function. #Bipolar disorder and depression: on citalopram and topiramate. Patient also on rizatriptan as needed for migraine headache. #Type 2 diabetes mellitus: metformin on hold due to lactic acidosis Accu-Cheks AC at bedtime, continue with sliding scale insulin. Will make adjustments as necessary Patient on multiple medications including mirabegron, lovastatin, hyoscyamine, and amantadine for multiple other functional diseases including irritable bowel syndrome, dizziness, urinary incontinence, migraine and dyslipidemia. Patient has elevated transaminases which has improved. Probably need further evaluation for NAFLD by PCP Discharge medication reconciliation done. Discharge follow-up instructions completed. Discharge process discussed with the patient and all questions were answered to patient's satisfaction. Patient has long list of home medications. Discharged to SNF. Follow-up with photograph finisher and exhibitions curator. Total time spent, exact 35 minutes on discharge meds reconciliation, examination, coordination of care with nurses and ancillary staff, review of imaging and blood test and discussion with the patient on follow-up instructions Physical Exam Narrative Seen and went. Blood pressure on baseline 90s to low 100s. Afebrile. Heart rate in 60s, sinus rhythm. Are oxygenation much improved currently on 2 L of oxygen. No tachypnea. General: Alert, Oriented x3, Cooperative HEENT: Atraumatic, PERRLA, EOMI, Normocephalic Oral: No Gingival or Mucosal Lesions/ Ulcerations Neck: Supple, No JVD, Negative Carotid Bruits Lungs: Air entry diminished in bilateral lung bases. No crepitation/rhonchi Cardiovascular: Regular rate, Regular Rhythm, Normal S1, Normal S2, No murmurs Abdomen: Bowel Sounds Present, Soft, Non Tender, Non-Distended : No renal angle tenderness. No suprapubic tenderness. Extremities: Mild bilateral leg pitting edema, Capillary Refill Less than 3 Seconds Skin: No rashes, No breakdown Musculoskeletal: Moderate muscle atrophy of upper extremities. No Tenderness to Palpation of Joints or Extremities Neurological: Cranial nerves II-XII grossly intact, DTR 2+/4 and Symmetrical, Neuro grossly intact Psych/Mental Status: Normal Affect, Appropriate. Weight / BMI Weight Weight: 241 lb 10.026 oz Body Mass Index (BMI) 43.7 ABG / Lab / Microbiology Data Result Diagrams: 09/03/21 04:29 09/07/21 04:39 Laboratory: Laboratory Results - last 24 hr 09/06/21 11:02: POC Glucose 163 H 09/06/21 16:29: POC Glucose 164 H 09/06/21 21:57: POC Glucose 133 H 09/07/21 04:39: Sodium 140, Potassium 3.8, Chloride 106, Carbon Dioxide 31.0, Anion Gap 3 L, BUN 31 H, Creatinine 0.88, Estim Creat Clear Calc 56.94, Est GFR (MDRD) Af Amer 84, Est GFR (MDRD) Non-Af 69, BUN/Creatinine Ratio 35.1 H, Glucose 77, Calcium 8.5 09/07/21 06:38: POC Glucose 71 Microbiology: Microbiology 08/25/21 16:00 Blood Culture (Wb) - Anticubital Right Blood Culture - Final No growth in 5 days. 08/25/21 16:00 Blood Culture (Wb) - Anticubital Right Blood Culture - Final No growth in 5 days. 08/25/21 23:00 Urine, Catheterized Urine Culture - Final Culture exhibits no growth. 08/25/21 Unknown Mucosa - Nasopharyngeal Respiratory Panel (PCR) - Final 08/25/21 23:00 Urine Catheter - Catheter Legionella Antigen - Final 08/25/21 23:00 Urine Catheter - Catheter Streptococcus pneumoniae Antigen (M - Final Meaningful Use Info Meaningful Use Diagnoses (Choose all that apply): None applicable Discharge Plan Admission Admit Date/Time: 08/25/21 19:22 Primary Reason for Your Visit: Bilateral pneumonia Attending Provider: Peter Herbert Primary Care Provider: Homer Bradford Consulting Providers: Dallin Christopher Discharge Orders/Prescriptions Prescriptions: New sodium chloride [Deep Sea Nasal] 0.65 % Aerosol,[place] 2 spray NASAL TID PRN PRN (Reason: NASAL DRYNESS) Qty: 0 RF: 0 metoprolol tartrate 25 mg Tablet 25 mg PO BID Qty: 0 RF: 0 menthol-zinc oxide [Calmoseptine] 0.44-20.6 % Ointment 1 applic topical BID Qty: 0 RF: 0 ipratropium-albuterol 0.5 mg-3 mg(2.5 mg base)/3 mL Solution For Nebulization 3 ml inhalation Q4HWA.RT PRNQty: 0 RF: 0 furosemide 20 mg Tablet 20 mg PO BIDLX Qty: 0 RF: 0 insulin lispro [Humalog KwikPen Insulin] 100 unit/mL Insulin Pen See Protocol unit subcut ACHS Qty: 0 RF: 0 Eliquis 5 mg Tablet 5 mg PO BID Qty: 0 RF: 0 prednisone 10 mg tablet 10 mg PO DAILY Qty: 25 RF: 0 Continued amantadine HCl 100 mg capsule 100 mg PO BID RF: 0 fludrocortisone 0.1 mg tablet 0.1 mg PO QDAY RF: 0 lorazepam [Ativan] 0.5 mg tablet 0.5 mg PO BID PRN PRN (Reason: Anxiety) RF: 0 lovastatin 20 mg tablet 20 mg PO QDAY RF: 0 melatonin 10 mg capsule 10 mg PO HS PRN (Reason: Sleep) RF: 0 metformin 500 mg tablet 500 mg PO DAILY RF: 0 metoprolol tartrate 25 mg tablet 25 mg PO BID RF: 0 nitroglycerin 0.4 mg tablet, sublingual 0.4 mg SUBLINGUAL Q5M PRN (Reason: CHEST PAIN) RF: 0 omeprazole 40 mg capsule,delayed release(DR/EC) 40 mg PO QDAY RF: 0 hyoscyamine sulfate [Oscimin SR] 0.375 mg tablet extended release 12 hr 0.375 mg PO BID RF: 0 quetiapine [Seroquel] 200 mg tablet 200 mg PO BID RF: 0 spironolactone 25 mg tablet 25 mg PO QDAY RF: 0 albuterol sulfate [Ventolin HFA] 90 mcg/actuation HFA aerosol inhaler 1 puff INHALATION Q6H RF: 0 mirabegron 50 MG tablet extended release 24 hr 25 mg PO DAILY RF: 0 citalopram [Celexa] 10 mg Tablet 10 mg PO DAILY RF: 0 topiramate [Topamax] 25 mg Tablet 25 mg PO BID RF: 0 Changed rizatriptan 10 mg Tablet 10 mg PO DAILY PRN (Reason: migraine headache) Qty: 0 RF: 0 Discontinued trazodone 100 mg tablet 200 mg PO QHS PRN (Reason: Sleep) RF: 0 Referrals / Follow Up: Dallin Christopher DO [STAFF PHYSICIAN] - Within 2 Weeks (Undiagnosed COPD, B/L pneumonia) Homer Bradford MD [Primary Care Provider] - In 1 Week Perez Cortez MD [STAFF PHYSICIAN] - Within 1 Month (PAFIB on metoprolol and Eliqiuis) Disposition Disposition (needs filled in before D/C Order can be placed): Group Home Facility Charges/Coding Visit Charges Inpatient E&M: 10621 Disch Hosp
[2021-09-07 11:36] LABS: Bedside Glucose 111 mg/dL (70-110)
--- NOTE | 2021-09-07 11:58 | CASEMGMT ---
ANGI arranged for patient to get picked up at 1300 via [facility]. ANGI faxed orders, negative COVID test, and bean picker machine operator time to [facility]. ANGI notified RN, patient, her nurse case manager Nicolasa, and left message for Erica at [facility]. ANGI also called patient's sister, Brianne and left her a voice mail letting her know this information. ANGI completed 7000 on HENS. Plan: d/c to [facility] under intermediate level of care on a convalescent stay. [facility] transported via [facility]. Farnaz Jo OIL WELL CABLE TOOL DRILLER DIANA
== END 2021-09-07 13:29 | disposition skilled nursing facility (03) | DRG 720 ==
LOC: ED 18:56 → ICU 19:33 → PCU 08-28 14:17
PROVIDERS: Family Medicine; Internal Medicine Critical Care Medicine; Student in an Organized Health Care Education/Training Program; Admitting Provider Family Medicine; Emergency Provider Emergency Medicine; PCP Family Medicine; Visit Provider Internal Medicine
DX: A41.9 Sepsis, unspecified organism (principal); J96.01 Acute respiratory failure with hypoxia; G93.41 Metabolic encephalopathy; N17.9 Acute kidney failure, unspecified; J84.9 Interstitial pulmonary disease, unspecified; E11.22 Type 2 diabetes mellitus with diabetic chronic kidney disease; J18.9 Pneumonia, unspecified organism; E87.0 Hyperosmolality and hypernatremia; J44.0 Chronic obstructive pulmonary disease with (acute) lower respiratory infection; F31.9 Bipolar disorder, unspecified; E66.01 Morbid (severe) obesity due to excess calories; R65.20 Severe sepsis without septic shock; I48.0 Paroxysmal atrial fibrillation; Z79.4 Long term (current) use of insulin; Z68.41 Body mass index [BMI] 40.0-44.9, adult; N18.31 Chronic kidney disease, stage 3a; E78.5 Hyperlipidemia, unspecified; I12.9 Hypertensive chronic kidney disease with stage 1 through stage 4 chronic kidney disease, or unspecified chronic kidney disease; F41.9 Anxiety disorder, unspecified; E86.0 Dehydration; K21.9 Gastro-esophageal reflux disease without esophagitis; E87.6 Hypokalemia; F17.210 Nicotine dependence, cigarettes, uncomplicated; K58.9 Irritable bowel syndrome, unspecified; G43.909 Migraine, unspecified, not intractable, without status migrainosus; I95.9 Hypotension, unspecified; Z79.84 Long term (current) use of oral hypoglycemic drugs; Z20.822 Contact with and (suspected) exposure to COVID-19; Z86.73 Personal history of transient ischemic attack (TIA), and cerebral infarction without residual deficits; Z79.899 Other long term (current) drug therapy; R13.12 Dysphagia, oropharyngeal phase
CPT/HCPCS: 36415; 71045; 71275; 74230; 80048; 80053; 81001; 82803; 82962; 83605; 83735; 83880; 84145; 85025; 85379; 85610; 85730; 86769; 87040; 87086; 87426; 87449; 87633; 87635; 87641; 92526; 92610; 92611; 93005; 93306; 94002; 94003; 94640; 94660; 97110; 97162; 97166; 97530; 97535; 97802; 97803; 99251; 99285; 99406; J2185; J7030; J7050; Q9957; Q9967; A4216; G0463; J1940; U0003; U0005

== ENCOUNTER → 2021-12-15 | Outpatient (CLI) | payer MEDICAID, SELFPAY ==
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
== END | disposition home or self-care (01) ==
LOC: RAD 12:49
PROVIDERS: PCP Family Medicine; Referring Provider Internal Medicine; Visit Provider Internal Medicine
DX: R13.10 Dysphagia, unspecified (principal)
CPT/HCPCS: 74230; 92611

== ENCOUNTER 2022-02-11 13:12 | Outpatient (CLI) | payer MEDICAID, SELFPAY ==
--- NOTE | 2022-02-11 13:16 | CT_ITS ---
STUDY: LOW DOSE CT LUNG CANCER SCREENING REASON FOR EXAM: Female, 62 years old. Current smoker 69 pack-year history. RADIATION DOSAGE (If Supplied By Facility): CTDIvol = ( 4.02 ) mGy, DLP = ( 125.87 ) mGycm TECHNIQUE: No contrast was administered. Low dose technique was utilized (average mAS-38 and kVp 120). 1.25 mm axial source images with a slice interval of 1.25-mm were reconstructed in lung windows. 2.5 mm axial source images with a slice interval of 2.5-mm were reconstructed in lung windows. 5.0 mm axial source images with a slice interval of 5.0-mm were reconstructed in soft tissue windows. COMPARISON: CTA of the chest, 08/26/2021. NODULES: Nodule #: 1 Density: Solid Lung location: Right upper lobe: Along the horizontal fissure. Location in series: Series Number: 2 Image: 107 Size - D1 x D2 mm: 1.0 x 0.5 x 0.5 mm: 8 mm average diameter Margin: Irregular Shape: Rectangular Calcification: No Fat: No Temporal comparison: Stable Nodule #: 2 Density: Sella Lung location: Left lower lobe: Along the oblique fissure. Location in series: Series Number: 2 Image: 107 Size - D1 x D2 mm: 5 x 4 mm: 5 mm average diameter Margin: Smooth Shape: Oval Calcification: No Fat: No Temporal comparison: None Total lung nodules (excluding granulomas): 2 Emphysema: There is diffuse emphysematous changes. The patchy infiltrate seen on the prior CTA is no longer present. Endobronchial lesion: None Aorta: Stable atherosclerotic changes. CORONARY ARTERIES: Coronary artery calcification are present Heart: Normal Pulmonary artery: Normal Mediastinal nodes: None Other chest and abdominal findings: CT/Low Dose CT Lung Screening IMPRESSION: Lung-RADS category 2 - Continue annual screening with LDCT in 12 months. IMPORTANT NOTES FOR USE: ACR Lung-RADS Version 1.1 Assessment Categories Release Date: 2018 Category: Coded 0-4 bases on nodule(s) with highest degree of suspicion. Negative screen is defined as categories 1 and 2; a positive screen is defined as categories 3 and 4. Category 3 and 4A nodules that are unchanged on interval CT should be coded as category 2, and individuals returned to screening in 12 months. Category 4X: Category 3 or 4 nodules with additional imaging findings that increase the suspicion of lung cancer, such as spiculation, GGN that doubles in size in 1 year, enlarged lymph notes, etc. Category Modifiers: S (significant finding unrelated to lung cancer) Electronically Signed: Chapo Castro DO at 23:52 EDT Reading Location ID and State: [address] [place] [address] Tel [phone], Service support ,
== END 2022-02-11 23:59 | disposition home or self-care (01) ==
PROVIDERS: PCP Family Medicine; Referring Provider Internal Medicine Critical Care Medicine; Visit Provider Internal Medicine Critical Care Medicine
DX: Z12.2 Encounter for screening for malignant neoplasm of respiratory organs (principal); F17.210 Nicotine dependence, cigarettes, uncomplicated
CPT/HCPCS: 71271

== ENCOUNTER → 2022-02-17 | Outpatient (CLI) | payer MEDICAID, SELFPAY ==
--- NOTE | 2022-02-17 14:13 | PFTCOMP_ITS ---
COMPLETE PULMONARY FUNCTION TEST INTERPRETATION Brief HPI: Patient is a 62-year-old female, currently under the care of Dr. Christopher, who presents to [facility] for complete pulmonary function tests secondary to diagnosis of COPD. Respiratory therapist reports good effort and reproducible results. Interpretation: Forced expiration spirometry shows a moderate large airways obstructive ventilatory defect with an FEV1 of 69% predicted. There is a significant bronchodilator response in FVC by strict ATS criteria. Spirograms are of good quality and plateau slowly, indicating slowly emptying areas of the lungs. The respiratory flow volume loop shows decreased expiratory flow rates at high lung volumes consistent with small airways obstruction. Lung volumes by body plethysmography show a normal total lung capacity at 4.22 L, 88% predicted. FRC and RV are elevated out of proportion. Lung volume measurements are consistent with air-trapping. Diffusion capacity by carbon monoxide is decreased at 48% predicted. The airway resistance is normal. No previous pulmonary function tests were available for review. Impression: Partially reversible moderate large airways obstructive ventilatory defect with a disproportionate reduction diffusion capacity, consistent with patient's diagnosis of COPD.
== END | disposition home or self-care (01) ==
LOC: PSN 06:42
PROVIDERS: PCP Family Medicine; Referring Provider Internal Medicine Critical Care Medicine; Visit Provider Internal Medicine Critical Care Medicine
DX: J44.9 Chronic obstructive pulmonary disease, unspecified (principal)
CPT/HCPCS: 94060; 94726; 94729

== ENCOUNTER → 2022-02-23 | Outpatient (CLI) | payer MEDICAID, SELFPAY ==
[2022-02-23 14:24] VITALS: PULSE 77; PULSE 87; PULSE 89; PULSE 91; PULSE 93; PULSE 95; PULSE 96; O2SAT 89; O2SAT 90; O2SAT 91; O2SAT 93; O2SAT 95; O2SAT 96
--- NOTE | 2022-02-23 14:31 | CPS ---
patient states cannot have oxygen at home due to her smoking and 2 other people smoke in the home. Stopped at 540 into test due to leg discomfort not SOb per patient.
--- NOTE | 2022-02-24 08:42 | PCM.PSN.6M ---
PSN 6 Minute Walk Test 6 Minute Walk Test 6 Minute Walk Test: 6 Minute Walk Test PSN:6-Minute Walk Test Start: 02/23/22 14:24 Freq: Status: Active Protocol: [id number] Document 02/23/22 14:24 FR (Rec: 02/23/22 14:33 FR [id number]) 6 Minute Walk Test Date Performed 02/23/22 Time Performed 14:00 Height 5 ft 3 in Weight: 226 lb Weight in Pounds [address]: Assistive device used: Walker Pre-test Oxygen Delivery Method Room Air Pulse Ox (%) 95 Pulse Rate (60-100 beats/min) 77 Dyspnea Mary Scale (0-10) 2 Exertion Mary Scale (6-20) 8 1st minute Oxygen Delivery Method Room Air Pulse Ox (%) 93 Pulse Rate (60-100 beats/min) 87 2nd minute Oxygen Delivery Method Room Air Pulse Ox (%) 90 Pulse Rate (60-100 beats/min) 87 3rd minute Oxygen Delivery Method Room Air Pulse Ox (%) 91 Pulse Rate (60-100 beats/min) 95 4th minute Oxygen Delivery Method Room Air Pulse Ox (%) 91 Pulse Rate (60-100 beats/min) 96 5th minute Oxygen Delivery Method Room Air Pulse Ox (%) 91 Pulse Rate (60-100 beats/min) 93 Reported Symptoms Increased Work of Breathing 6th minute Oxygen Delivery Method Room Air Pulse Ox (%) 89 Pulse Rate (60-100 beats/min) 91 Dyspnea Mary Scale (0-10) 5 Exertion Mary Scale (6-20) 9 Number of Rests Taken 1 Reported Symptoms Increased Work of Breathing Post-test Oxygen Delivery Method Room Air Pulse Ox (%) 96 Pulse Rate (60-100 beats/min) 89 Full Laps Walked 12 Partial Lap, Number of Tiles Walked 0 Total Distance Walked (ft) 708 02/23/22 14:31 Cardiopulmonary Services by Maria Teresa Bartlett patient states cannot have oxygen at home due to her smoking and 2 other people smoke in the home. Stopped at 540 into test due to leg discomfort not SOb per patient. Initialized on 02/23/22 14:31 - END OF NOTE Interpretation Interpretation: The patient ambulated 780 feet over the course of 6 minutes beginning on room air with the use of a walker. Pretesting oxygen saturation was noted to be 95% on room air. With ambulation, the jose a oxygen saturation was 89%. This represents a significant exertional oxygen desaturation. Recommendations Recommendations: There is no indication for the use of supplemental oxygen at this time. However, close interval follow-up is recommended, given the degree of oxygen desaturation noted during this study.
== END | disposition home or self-care (01) ==
LOC: PSN 14:02
PROVIDERS: PCP Family Medicine; Referring Provider Internal Medicine Critical Care Medicine; Visit Provider Internal Medicine Critical Care Medicine
DX: J44.9 Chronic obstructive pulmonary disease, unspecified (principal)
CPT/HCPCS: 94618

== ENCOUNTER 2022-09-12 10:51 | Emergency (ER) | payer MEDICAID, SELFPAY ==
[2022-09-12 10:53] VITALS: BP 123/56; PULSE 107; RESP 24; TEMP 36.7; O2SAT 100; BMI 50.3
[2022-09-12 11:07] VITALS: BP 126/60; PULSE 98; O2SAT 99
--- NOTE | 2022-09-12 11:11 | EX.ED.DYSGE1 ---
HPI History of Present Illness Chief Complaint: Rash Informant: patient Narrative Narrative: Patient presenting with spontaneous onset of a splotchy red pruritic rash 2 or 3 days. No obvious etiology. No changes in any of her medications recently, no changes in shampoos, soaps, or other topical agents. She states it has been coming and going on various parts of her body. She did have them on her legs and feet but right now she only has it left upper chest and breast and anterior neck. She states it feels like it [place] as well. She denies any systemic symptoms. [facility] Medical History Acute respiratory failure with hypoxia Arthritis Asthma CKD (chronic kidney disease) stage 3, GFR 30-59 ml/min COPD (chronic obstructive pulmonary disease) Diabetes Elevated liver enzymes Frequent headaches Gastrointestinal problem Heart disease History of back problems History of left heart catheterization (LHC) (~12/30/20) Hyperlipidemia IBS (irritable bowel syndrome) Lung nodule Migraines Paroxysmal atrial fibrillation Stroke Home Medications albuterol sulfate 90 mcg/actuation aerosol inhaler (Ventolin HFA) 1 puff inhalation Q6H 06/22/17 [History Last Taken 09/08/20] amantadine HCl 100 mg capsule 100 mg PO BID 06/22/17 [History Last Taken 09/08/20] fludrocortisone 0.1 mg tablet 0.1 mg PO QDAY 06/22/17 [History Last Taken 09/08/20] hyoscyamine sulfate 0.375 mg tablet,extended release,12 hr (Oscimin SR) 0.375 mg PO BID 06/22/17 [History Last Taken 09/08/20] lovastatin 20 mg tablet 20 mg PO QDAY 06/22/17 [History Last Taken 09/08/20] melatonin 10 mg capsule 10 mg PO HS PRN Sleep 06/22/17 [History Last Taken 09/08/20] metformin 500 mg tablet 500 mg PO DAILY 06/22/17 [History Last Taken 09/08/20] nitroglycerin 0.4 mg sublingual tablet 0.4 mg sublingual Q5M PRN CHEST PAIN 06/22/17 [History Last Taken 09/08/20] omeprazole 40 mg capsule,delayed release 40 mg PO QDAY 06/22/17 [History Last Taken 09/08/20] quetiapine 200 mg tablet (Seroquel) 200 mg PO BID 06/22/17 [History Last Taken 09/08/20] spironolactone 25 mg tablet 25 mg PO QDAY 06/22/17 [History Last Taken 09/08/20] mirabegron 50 mg tablet,extended release 24 hr 25 mg PO DAILY 08/19/20 [History Last Taken 09/08/20] citalopram 10 mg tablet (Celexa) 10 mg PO DAILY 08/25/21 [History Last Taken Unknown] topiramate 25 mg tablet (Topamax) 25 mg PO BID 08/25/21 [History Last Taken Unknown] apixaban 5 mg tablet (Eliquis) 5 mg PO BID #0 tabs 09/07/21 [Rx Last Taken Unknown] furosemide 20 mg tablet 20 mg PO BIDLX #0 tabs 09/07/21 [Rx Last Taken Unknown] insulin lispro 100 unit/mL subcutaneous pen (Humalog KwikPen (U-100) Insulin) See Protocol subcut ACHS #0 mL 09/07/21 [Rx Last Taken Unknown] ipratropium 0.5 mg-albuterol 3 mg (2.5 mg base)/3 mL nebulization soln 3 ml inhalation Q4HWA.RT PRN #0 mL 09/07/21 [Rx Last Taken Unknown] menthol 0.44 %-zinc oxide 20.6 % topical ointment (Calmoseptine) 1 applic topical BID #0 grams 09/07/21 [Rx Last Taken Unknown] metoprolol tartrate 25 mg tablet 25 mg PO BID #0 tabs 09/07/21 [Rx Last Taken Unknown] rizatriptan 10 mg tablet 10 mg PO DAILY PRN migraine headache #0 tabs 09/07/21 [Rx Last Taken Unknown] sodium chloride 0.65 % nasal spray aerosol (Deep Sea Nasal) 2 spray NASAL TID PRN PRN NASAL DRYNESS #0 mL 09/07/21 [Rx Last Taken Unknown] bisacodyl 10 mg rectal suppository (Dulcolax (bisacodyl)) 10 mg GA DAILY PRN 09/28/21 [History Last Taken Unknown] lorazepam 0.5 mg tablet (Ativan) 0.5 mg PO Q12H PRN Anxiety 09/28/21 [History Last Taken Unknown] budesonide-formoterol HFA 160 mcg-4.5 mcg/actuation aerosol inhaler (Symbicort) 2 puff inhalation BID #1 ea 02/25/22 [Rx Last Taken Unknown] prednisone 20 mg tablet 20 mg PO DAILY #5 TABLETS 09/12/22 [Rx Last Taken Unknown] Allergy/AdvReac Type Severity Reaction Status Date / Time Penicillins Allergy Intermediate Hives Verified 09/12/22 10:56 carbamazepine [From Tegretol] AdvReac Intermediate Nausea Verified 09/12/22 10:56 benztropine AdvReac Unknown Verified 09/12/22 10:56 diazepam [From Valium] AdvReac Other Verified 09/12/22 10:56 Sulfa (Sulfonamide AdvReac Nausea Verified 09/12/22 10:56 Antibiotics) thioridazine AdvReac Nausea Verified 09/12/22 10:56 thioridazine HCl AdvReac Other Verified 09/12/22 10:56 [From Mellaril] Family History Grandmother Cancer stomach Father Cancer lung Sister Breast cancer Surgical History H/O dilation and curettage H/O hand surgery H/O shoulder surgery History of carpal tunnel surgery History of elbow surgery History of tonsillectomy Hx of cholecystectomy Social History household members: family housing: other details: Mobile home Smoking Status: Current every day smoker tobacco type: cigarettes alcohol intake: never substance use type: does not use caffeine: Yes what type of physical activity do you participate in: walking seatbelt use: always do you feel safe at home: Yes ROS ROS ED Constitutional Constitutional ED: Denies chills or fever(s) Cardiovascular Cardiovascular: Denies chest pain, leg edema or palpitations Respiratory/Chest Respiratory/Chest: Denies dyspnea Musculoskeletal Musculoskeletal: Denies back pain or neck pain Integumentary Reports rash Neurologic Neurologic: Denies headache(s), paresthesias or weakness Allergic/Immunologic Allergic/Immunologic ED: Reports urticaria; Denies mouth swelling or tongue swelling EXAM Physical Exam Const Vital Signs: 09/12/22 10:53 09/12/22 11:07 Temperature 98.0 F Temperature Source Temporal Pulse Rate 107 H 98 Respiratory Rate 24 H Blood Pressure 123/56 H 126/60 H Blood Pressure Mean 78 82 Pulse Ox 100 99 Oxygen Delivery Method Room Air Positive well nourished, well developed and obese General Appearance ED: well developed and NAD Nutritional Appearance: obese Eyes PERRL and EOMs intact bilaterally Resp normal respiratory effort and clear to auscultation bilaterally Effort and Inspection: able to speak in complete sentences Extremity normal to inspection General Extremety ED: Negative for edema, pulses abnormal or tenderness General Extremity: Negative for edema or pulses abnormal Neuro oriented x3, CN's II-XII intact bilaterally and no sensory deficits noted Sensorium / Orientation: awake and alert Motor Exam: strength 5/5 throughout Psych mental status grossly normal Skin no wounds Skin Narrative: Coalescing urticarial left upper chest, more sparse as it progresses into the left anterior shoulder area. Blanches, raised, nontender. No petechia or bullae or other lesions. No other affected areas right now except for around the left breast. Also a patch anterior neck a little to the right, similar in appearance. MDM MDM MDM Narrative Medical decision making narrative: Etiology unknown but it appears to be urticaria and she does not have any systemic symptoms and does not appear toxic. Her vital signs are normal. She is a diabetic so instead of putting her on a full 40 mg daily I am giving her 40 mg here now and then putting her on 20 mg for the next 5 days. Advised to watch her blood sugars and follow-up if she continues to have the rash or develops any systemic symptoms such as dyspnea, throat swelling, edema which she has none of now. Discharge Plan Triage Chief Complaint: Rash ED Provider: Ortiz Pinto Dx/Rx/DC Orders Clinical Impression: Urticaria Instructions: ED Hives (Adult) Prescriptions: New prednisone 20 mg tablet 20 mg PO DAILY Qty: 5 0RF No Action amantadine HCl 100 mg capsule 100 mg PO BID fludrocortisone 0.1 mg tablet 0.1 mg PO QDAY lovastatin 20 mg tablet 20 mg PO QDAY melatonin 10 mg capsule 10 mg PO HS PRN (Reason: Sleep) metformin 500 mg tablet 500 mg PO DAILY nitroglycerin 0.4 mg tablet, sublingual 0.4 mg SUBLINGUAL Q5M PRN (Reason: CHEST PAIN) omeprazole 40 mg capsule,delayed release(DR/EC) 40 mg PO QDAY hyoscyamine sulfate [Oscimin SR] 0.375 mg tablet extended release 12 hr 0.375 mg PO BID quetiapine [Seroquel] 200 mg tablet 200 mg PO BID spironolactone 25 mg tablet 25 mg PO QDAY albuterol sulfate [Ventolin HFA] 90 mcg/actuation HFA aerosol inhaler 1 puff INHALATION Q6H lorazepam [Ativan] 0.5 mg tablet 0.5 mg PO Q12H PRN (Reason: Anxiety) bisacodyl [Dulcolax (bisacodyl)] 10 mg suppository 10 mg GA DAILY PRN budesonide-formoterol [Symbicort] 160-4.5 mcg/actuation HFA aerosol inhaler 2 puff inhalation BID Qty: 1 3RF Rx Instructions: administer with spacer, rinse mouth after each use mirabegron 50 MG tablet extended release 24 hr 25 mg PO DAILY citalopram [Celexa] 10 mg Tablet 10 mg PO DAILY topiramate [Topamax] 25 mg Tablet 25 mg PO BID sodium chloride [Deep Sea Nasal] 0.65 % Aerosol,[place] 2 spray NASAL TID PRN PRN (Reason: NASAL DRYNESS) Qty: 0 0RF metoprolol tartrate 25 mg Tablet 25 mg PO BID Qty: 0 0RF menthol-zinc oxide [Calmoseptine] 0.44-20.6 % Ointment 1 applic topical BID Qty: 0 0RF Protocol: *Topical Application Instructions APPLICATION INSTRUCTIONS: coccyx ipratropium-albuterol 0.5 mg-3 mg(2.5 mg base)/3 mL Solution For Nebulization 3 ml inhalation Q4HWA.RT PRNQty: 0 0RF furosemide 20 mg Tablet 20 mg PO BIDLX Qty: 0 0RF insulin lispro [Humalog KwikPen Insulin] 100 unit/mL Insulin Pen See Protocol subcut ACHS Qty: 0 0RF Protocol: 3. Sliding Scale Insulin Med Dosing Condition: 150-189 mg/dl = 1 unit Condition: 190-229 mg/dl = 2 units Condition: 230-269 mg/dl = 3 units Condition: 270-309 mg/dl = 4 units Condition: 310-349 mg/dl = 5 units Condition: 350-399 mg/dl = 6 units Condition: 400-449 mg/dl = 7 units Condition: Greater than 449 call physician Protocol Text: - Use for Total Daily Dose of Insulin 37-55 units - Obsese, infected, or steroid patients MEDIUM DOSING ALGORITHIM Eliquis 5 mg Tablet 5 mg PO BID Qty: 0 0RF rizatriptan 10 mg Tablet 10 mg PO DAILY PRN (Reason: migraine headache) Qty: 0 0RF Primary Care Provider: Homer Bradford Referrals: Homer Bradford MD [Primary Care Provider] - 3-5 Days if not improving Activity Restrictions/Additional Instructions: Prednisone may make your blood sugars go up since you are a diabetic. Make sure you check your blood sugars at least once daily, if they go over 400, come to the ER. You already received a dose of prednisone for today, so start the prescription tomorrow 09/13. Disposition Disposition: Home, Self Care
[2022-09-12] MEDS: DiphenhydrAMINE 25 MG Capsule 50 MG PO (11:26)
[2022-09-12] MEDS: predniSONE 20 MG Tablet 40 MG PO (11:27)
== END 2022-09-12 11:29 | disposition home or self-care (01) ==
LOC: ED 11:24
PROVIDERS: Emergency Provider Emergency Medicine; PCP Family Medicine; Visit Provider Emergency Medicine
DX: L50.9 Urticaria, unspecified (principal); J44.9 Chronic obstructive pulmonary disease, unspecified; E11.22 Type 2 diabetes mellitus with diabetic chronic kidney disease; I48.0 Paroxysmal atrial fibrillation; Z79.4 Long term (current) use of insulin; N18.30 Chronic kidney disease, stage 3 unspecified; G43.909 Migraine, unspecified, not intractable, without status migrainosus; Z79.899 Other long term (current) drug therapy; Z79.01 Long term (current) use of anticoagulants; F17.210 Nicotine dependence, cigarettes, uncomplicated
CPT/HCPCS: 99283

== ENCOUNTER 2022-12-01 14:25 | Emergency (ER) | payer MEDICAID, SELFPAY ==
[2022-12-01 14:27] VITALS: BP 129/84; PULSE 128; RESP 20; TEMP 36.8; O2SAT 96; BMI 49.6
--- NOTE | 2022-12-01 15:09 | EDS_ITS ---
HPI History of Present Illness Chief Complaint: Rash Informant: patient and spouse/S.O. Narrative Narrative: Presents with hives. They started about 2 days ago. Despite extensive questioning, we cannot sort out anything that is a new exposure. She states she does not feel sick she is just itching. No fevers or chills. No trouble swallowing. No trouble breathing or wheezing. She has had this about 4 times in the last 3 or 4 months. She usually gets medicines and they go away. She has no other complaints. Although her heart rate is up a little bit here in triage it is down more now and she is asymptomatic. She does admit to being quite anxious every time she comes to see doctors. [facility] Medical History Acute respiratory failure with hypoxia Arthritis Asthma CKD (chronic kidney disease) stage 3, GFR 30-59 ml/min COPD (chronic obstructive pulmonary disease) Diabetes Elevated liver enzymes Frequent headaches Gastrointestinal problem Heart disease History of back problems History of left heart catheterization (LHC) (~12/30/20) Hyperlipidemia IBS (irritable bowel syndrome) Lung nodule Migraines Paroxysmal atrial fibrillation Stroke Home Medications albuterol sulfate 90 mcg/actuation aerosol inhaler (Ventolin HFA) 1 puff inhalation Q6H 06/22/17 [History Last Taken 09/08/20] amantadine HCl 100 mg capsule 100 mg PO BID 06/22/17 [History Last Taken 09/08/20] fludrocortisone 0.1 mg tablet 0.1 mg PO QDAY 06/22/17 [History Last Taken 09/08/20] hyoscyamine sulfate 0.375 mg tablet,extended release,12 hr (Oscimin SR) 0.375 mg PO BID 06/22/17 [History Last Taken 09/08/20] lovastatin 20 mg tablet 20 mg PO QDAY 06/22/17 [History Last Taken 09/08/20] melatonin 10 mg capsule 10 mg PO HS PRN Sleep 06/22/17 [History Last Taken 09/08/20] metformin 500 mg tablet 500 mg PO DAILY 06/22/17 [History Last Taken 09/08/20] nitroglycerin 0.4 mg sublingual tablet 0.4 mg sublingual Q5M PRN CHEST PAIN 06/22/17 [History Last Taken 09/08/20] omeprazole 40 mg capsule,delayed release 40 mg PO QDAY 06/22/17 [History Last Taken 09/08/20] quetiapine 200 mg tablet (Seroquel) 200 mg PO BID 06/22/17 [History Last Taken 09/08/20] spironolactone 25 mg tablet 25 mg PO QDAY 06/22/17 [History Last Taken 09/08/20] mirabegron 50 mg tablet,extended release 24 hr 25 mg PO DAILY 08/19/20 [History Last Taken 09/08/20] citalopram 10 mg tablet (Celexa) 10 mg PO DAILY 08/25/21 [History Last Taken Unknown] topiramate 25 mg tablet (Topamax) 25 mg PO BID 08/25/21 [History Last Taken Unknown] apixaban 5 mg tablet (Eliquis) 5 mg PO BID #0 tabs 09/07/21 [Rx Last Taken Unknown] furosemide 20 mg tablet 20 mg PO BIDLX #0 tabs 09/07/21 [Rx Last Taken Unknown] insulin lispro 100 unit/mL subcutaneous pen (Humalog KwikPen (U-100) Insulin) See Protocol subcut ACHS #0 mL 09/07/21 [Rx Last Taken Unknown] ipratropium 0.5 mg-albuterol 3 mg (2.5 mg base)/3 mL nebulization soln 3 ml inhalation Q4HWA.RT PRN #0 mL 09/07/21 [Rx Last Taken Unknown] menthol 0.44 %-zinc oxide 20.6 % topical ointment (Calmoseptine) 1 applic topical BID #0 grams 09/07/21 [Rx Last Taken Unknown] metoprolol tartrate 25 mg tablet 25 mg PO BID #0 tabs 09/07/21 [Rx Last Taken Unknown] rizatriptan 10 mg tablet 10 mg PO DAILY PRN migraine headache #0 tabs 09/07/21 [Rx Last Taken Unknown] sodium chloride 0.65 % nasal spray aerosol (Deep Sea Nasal) 2 spray NASAL TID PRN PRN NASAL DRYNESS #0 mL 09/07/21 [Rx Last Taken Unknown] bisacodyl 10 mg rectal suppository (Dulcolax (bisacodyl)) 10 mg NM DAILY PRN 09/28/21 [History Last Taken Unknown] lorazepam 0.5 mg tablet (Ativan) 0.5 mg PO Q12H PRN Anxiety 09/28/21 [History Last Taken Unknown] budesonide-formoterol HFA 160 mcg-4.5 mcg/actuation aerosol inhaler (Symbicort) 2 puff inhalation BID #1 ea 02/25/22 [Rx Last Taken Unknown] prednisone 20 mg tablet 20 mg PO DAILY #5 TABLETS 09/12/22 [Rx Last Taken Unknown] hydroxyzine HCl 25 mg tablet 25 mg PO TID PRN itching #14 tabs 12/01/22 [Rx Last Taken Unknown] Allergy/AdvReac Type Severity Reaction Status Date / Time Penicillins Allergy Intermediate Hives Verified 12/01/22 14:30 carbamazepine [From Tegretol] AdvReac Intermediate Nausea Verified 12/01/22 14:30 benztropine AdvReac Unknown Verified 12/01/22 14:30 diazepam [From Valium] AdvReac Other Verified 12/01/22 14:30 Sulfa (Sulfonamide AdvReac Nausea Verified 12/01/22 14:30 Antibiotics) thioridazine AdvReac Nausea Verified 12/01/22 14:30 thioridazine HCl AdvReac Other Verified 12/01/22 14:30 [From Mellaril] Family History Grandmother Cancer stomach Father Cancer lung Sister Breast cancer Surgical History H/O dilation and curettage H/O hand surgery H/O shoulder surgery History of carpal tunnel surgery History of elbow surgery History of tonsillectomy Hx of cholecystectomy Social History household members: family housing: other details: Mobile home Smoking Status: Current every day smoker tobacco type: cigarettes alcohol intake: never substance use type: does not use caffeine: Yes what type of physical activity do you participate in: walking seatbelt use: always do you feel safe at home: Yes ROS ROS ED Constitutional Constitutional ED: Denies chills or fever(s) ENT ENT ED: Denies rhinorrhea or sore throat Cardiovascular Cardiovascular: Denies chest pain, palpitations or racing heartbeat Respiratory/Chest Respiratory/Chest: Denies cough or dyspnea Gastrointestinal Gastrointestinal: Denies nausea or vomiting Genitourinary Genitourinary ED: Denies dysuria Musculoskeletal Musculoskeletal: Denies myalgias Integumentary Reports rash Neurologic Neurologic: Denies headache(s), paresthesias or weakness Endocrine Endocrinology: Denies polydipsia or polyuria Hematologic/Lymphatic Hematologic/Lymphatic: Denies easy bleeding or easy bruising Allergic/Immunologic Allergic/Immunologic ED: Reports urticaria EXAM Physical Exam Narrative Exam Narrative: CONSTITUTIONAL: Patient is nontoxic in appearance. The patient looks comfortable but she is itching quite a bit. Work of breathing looks normal. HEENT: No notable trauma. Mucous membranes moist. No petechiae. No swelling. No change in voice. EYES: No conjunctival injection. No proptosis. NECK:No JVD. No stridor. CARDIOVASCULAR: Borderline tachycardic rate now at about 100. Regular rhythm. No notable murmur. No JVD. RESPIRATORY: No respiratory distress. Breathing is unlabored. No wheezes. No rhonchi. No rales. No pain with a deep breath. No chest wall tenderness. GASTROINTESTINAL: Not distended. Bowel sounds are normal. No tenderness. No guarding. No rebound. No palpable mass. No bruit is heard. GENITOURINARY: No tenderness over the bladder. No CVA tenderness. MUSCULOSKELETAL: Atraumatic. No peripheral edema. No cord. No tenderness along the deep venous system. No asymmetry. No distended veins. NEUROLOGICAL: Patient is alert and appropriate. No focal deficit noted. SKIN: Patient does have urticaria on mostly the torso but also on upper extremities and slightly lower. None facial. None on the palms at this time. PSYCHIATRIC: Patient is calm. Mood is appropriate. Const Vital Signs: 12/01/22 14:27 Temperature 98.2 F Temperature Source Temporal Pulse Rate 128 H Respiratory Rate 20 H Blood Pressure 129/84 H Blood Pressure Mean 99 Pulse Ox 96 Oxygen Delivery Method Room Air MDM MDM MDM Narrative Medical decision making narrative: Patient's EKG showed normal sinus rhythm with mild tachycardia at 103. She is asymptomatic. I will start her on meds for the hives. I will give her single dose of Decadron because she states normally when she gets meds her symptoms are gone within a day. I will also write for some Atarax for itch. We discussed reasons to return. EKG Initial EKG: Comments: My independent interpretation of EKG done for mild tachycardia shows a sinus rhythm with tachycardic rate at 102. No ectopy. No acute ST elevation or depression consistent with infarct or ischemia. Mild nonspecific changes. NM interval, QRS and QTc are normal. Discharge Plan Triage Chief Complaint: Rash ED Provider: Frank Monroe Dx/Rx/DC Orders Clinical Impression: Hives Instructions: ED Hives (Adult) Prescriptions: New hydroxyzine HCl 25 mg tablet 25 mg PO TID PRN (Reason: itching) Qty: 14 0RF No Action amantadine HCl 100 mg capsule 100 mg PO BID fludrocortisone 0.1 mg tablet 0.1 mg PO QDAY lovastatin 20 mg tablet 20 mg PO QDAY melatonin 10 mg capsule 10 mg PO HS PRN (Reason: Sleep) metformin 500 mg tablet 500 mg PO DAILY nitroglycerin 0.4 mg tablet, sublingual 0.4 mg SUBLINGUAL Q5M PRN (Reason: CHEST PAIN) omeprazole 40 mg capsule,delayed release(DR/EC) 40 mg PO QDAY hyoscyamine sulfate [Oscimin SR] 0.375 mg tablet extended release 12 hr 0.375 mg PO BID quetiapine [Seroquel] 200 mg tablet 200 mg PO BID spironolactone 25 mg tablet 25 mg PO QDAY albuterol sulfate [Ventolin HFA] 90 mcg/actuation HFA aerosol inhaler 1 puff INHALATION Q6H lorazepam [Ativan] 0.5 mg tablet 0.5 mg PO Q12H PRN (Reason: Anxiety) bisacodyl [Dulcolax (bisacodyl)] 10 mg suppository 10 mg NM DAILY PRN budesonide-formoterol [Symbicort] 160-4.5 mcg/actuation HFA aerosol inhaler 2 puff inhalation BID Qty: 1 3RF Rx Instructions: administer with spacer, rinse mouth after each use mirabegron 50 MG tablet extended release 24 hr 25 mg PO DAILY citalopram [Celexa] 10 mg Tablet 10 mg PO DAILY topiramate [Topamax] 25 mg Tablet 25 mg PO BID sodium chloride [Deep Sea Nasal] 0.65 % Aerosol,[place] 2 spray NASAL TID PRN PRN (Reason: NASAL DRYNESS) Qty: 0 0RF metoprolol tartrate 25 mg Tablet 25 mg PO BID Qty: 0 0RF menthol-zinc oxide [Calmoseptine] 0.44-20.6 % Ointment 1 applic topical BID Qty: 0 0RF Protocol: *Topical Application Instructions APPLICATION INSTRUCTIONS: coccyx ipratropium-albuterol 0.5 mg-3 mg(2.5 mg base)/3 mL Solution For Nebulization 3 ml inhalation Q4HWA.RT PRNQty: 0 0RF furosemide 20 mg Tablet 20 mg PO BIDLX Qty: 0 0RF insulin lispro [Humalog KwikPen Insulin] 100 unit/mL Insulin Pen See Protocol subcut ACHS Qty: 0 0RF Protocol: 3. Sliding Scale Insulin Med Dosing Condition: 150-189 mg/dl = 1 unit Condition: 190-229 mg/dl = 2 units Condition: 230-269 mg/dl = 3 units Condition: 270-309 mg/dl = 4 units Condition: 310-349 mg/dl = 5 units Condition: 350-399 mg/dl = 6 units Condition: 400-449 mg/dl = 7 units Condition: Greater than 449 call physician Protocol Text: - Use for Total Daily Dose of Insulin 37-55 units - Obsese, infected, or steroid patients MEDIUM DOSING ALGORITHIM Eliquis 5 mg Tablet 5 mg PO BID Qty: 0 0RF rizatriptan 10 mg Tablet 10 mg PO DAILY PRN (Reason: migraine headache) Qty: 0 0RF prednisone 20 mg tablet 20 mg PO DAILY Qty: 5 0RF Primary Care Provider: Homer Bradford Referrals: Homer Bradford MD [Primary Care Provider] - 3-5 Days if not improving Disposition Disposition: Home, Self Care
--- NOTE | 2022-12-01 15:16 | EKG12_ITS ---
Test Reason : Blood Pressure : / mmHG Vent. Rate : 102 BPM Atrial Rate : 102 BPM P-R Int : 152 ms QRS Dur : 092 ms QT Int : 358 ms P-R-T Axes : 091 001 062 degrees QTc Int : 466 ms Sinus tachycardia Inferior infarct , age undetermined Abnormal ECG Confirmed by JOSEPH GUSTAFSON, CHEL ([id number]), loan expeditor JIGNA TERRAZAS ([id number]) on 12/03/2022 9:32:07 AM Referred By: PL Confirmed By:CHEL RUIZ MD
[2022-12-01 15:41] VITALS: PULSE 112; RESP 18; O2SAT 96
[2022-12-01] MEDS: dexAMETHasone 4 MG Tablet 10 MG PO (15:49)
== END 2022-12-01 15:52 | disposition home or self-care (01) ==
PROVIDERS: Emergency Provider Emergency Medicine; PCP Family Medicine; Visit Provider Emergency Medicine
DX: L50.9 Urticaria, unspecified (principal); J44.9 Chronic obstructive pulmonary disease, unspecified; E11.22 Type 2 diabetes mellitus with diabetic chronic kidney disease; I48.0 Paroxysmal atrial fibrillation; Z79.4 Long term (current) use of insulin; N18.30 Chronic kidney disease, stage 3 unspecified; E78.5 Hyperlipidemia, unspecified; J45.909 Unspecified asthma, uncomplicated; Z79.899 Other long term (current) drug therapy; K58.9 Irritable bowel syndrome, unspecified; Z79.84 Long term (current) use of oral hypoglycemic drugs; Z79.01 Long term (current) use of anticoagulants; G43.909 Migraine, unspecified, not intractable, without status migrainosus; Z79.51 Long term (current) use of inhaled steroids; F17.210 Nicotine dependence, cigarettes, uncomplicated
CPT/HCPCS: 93005; 99283

== ENCOUNTER → 2023-02-14 | Outpatient (CLI) | payer MEDICAID, SELFPAY ==
--- NOTE | 2023-02-14 13:52 | CT_ITS ---
EXAM: CT CHEST, LUNG CANCER SCREENING WITHOUT INTRAVENOUS CONTRAST CLINICAL INDICATION: smoker and gt; 40 pack years TECHNIQUE: Helically acquired images were obtained of the chest without intravenous contrast using low dose (LDCT) lung cancer screening protocol. This CT exam was performed using one or more of the following dose reduction techniques: automated exposure control, adjustment of the mA and/or kV according to patient size, and/or use of iterative reconstruction technique. COMPARISON: 02/11/2022 FINDINGS: LUNGS AND PLEURAL SPACES: Spiculated nodule in the right upper lobe is present measuring 1.7 x 1.0 x 1.0 This abuts against the fissure. Best seen on series 2 image 105. There is a second nodule present in the fissure in the right upper lobe that measures 7 x 7 x 4 mm. No pleural effusion or thickening. No pneumothorax. HEART: Unremarkable. Heart size is normal. No pericardial effusion. No significant coronary artery calcifications. MEDIASTINUM: Unremarkable. No mediastinal or hilar adenopathy. Esophagus is unremarkable. No hiatal hernia. THYROID: Unremarkable. No thyroid lesions. BONES/JOINTS: Unremarkable. No suspicious lytic or blastic abnormality. VASCULATURE: Unremarkable. Thoracic aorta is non-dilated. LYMPH NODES: Unremarkable. No enlarged lymph nodes. CT/Low Dose CT Lung Screening IMPRESSION: Interval increase in size of nodules in the right upper lobe which abut against the fissure. The largest nodule is slightly spiculated. Lung-RADS score: 4B - Very Suspicious. Recommend chest CT with or without contrast, PET/CT and/or tissue sampling depending on the probability of malignancy and comorbidities. PET/CT may be used when there is a >=8 mm solid component. For new large nodules that develop on an annual repeat screening CT, a 1 month LDCT may be recommended to address potentially infectious or inflammatory conditions. Electronically Signed: Niko Day MD at 0:12 EDT ,
== END | disposition home or self-care (01) ==
LOC: CT 13:50
PROVIDERS: PCP Family Medicine; Referring Provider Nurse Practitioner Acute Care; Visit Provider Nurse Practitioner Acute Care
DX: F17.210 Nicotine dependence, cigarettes, uncomplicated (principal)
CPT/HCPCS: 71271

== ENCOUNTER → 2023-03-04 | Outpatient (CLI) | payer MEDICAID, SELFPAY ==
[2023-03-04 12:37] LABS: Platelet Count 230 K/mm3 (150-450)
[2023-03-04 12:48] LABS: Prothrombin Time (Protime)PT. 13.5 SECONDS (11.7-14.9)
[2023-03-04 12:49] LABS: Partial Thromboplast Time 28.9 Seconds (24.1-36.2)
== END | disposition home or self-care (01) ==
PROVIDERS: PCP Family Medicine; Referring Provider Nurse Practitioner Acute Care; Visit Provider Nurse Practitioner Acute Care
DX: I48.91 Unspecified atrial fibrillation (principal); R06.00 Dyspnea, unspecified
CPT/HCPCS: 36415; 85049; 85610; 85730

== ENCOUNTER → 2023-03-28 | Outpatient (CLI) | payer MEDICAID, SELFPAY ==
[2023-03-28] VITALS (14 sets, daily range): BP systolic 68–157; BP diastolic 41–109; PULSE 78–95; RESP 13–27; TEMP 36.7; O2SAT 93–100; BMI 47.0
--- NOTE | 2023-03-28 | ASPIGT_PTH ---
PATIENT: PERNELL FISHER LOC: CT U#:[id number] AGE/SX: 63/F ROOM: RE03/28/[address]: GAY Collado : 1960 BED: DIS: 03/28/2023 SPEC #: [id number] RECD: 03/28/23 11:26 STATUS: AALIYAH LUPE #: [id number] VINICIO: 03/28/23 00:[address]: Taylor Julian NP DEPT: SURGICAL PATHOLOGY RECD BY: Mukesh Palacios ENTERED: 03/28/23 11:27 SP TYPE: ASP RAD LILLIANA DR: Dr. Homer Bradford MD Tissues: Lung, NOS Procedures: FNA Specimen Adequacy Special Stain Group II Surgery Specimen Level IV Imprint (control) HEADER OPERATION: Right lung biopsy PRE-OP DIAGNOSIS: Right upper lobe lung mass TISSUE SUBMITTED: Right upper lobe lung mass 20-gauge x6 MICROSCOPIC DIAGNOSIS Right upper lobe lung mass, CT-guided core biopsy: Fragments of lung parenchymal tissue, negative for malignancy. See comment. TOSHA:landon 03/29/2023 COMMENT The specimen is evaluated at the time of biopsy by Dr. Salas. Immediate Evaluation = Atypical cells noted. Pneumocyte 2 hyperplasia with mild atypia is noted. Atypical cells predominantly noted in the smears. Correlation with clinical, radiologic findings and appropriate follow up are necessary. Case has been reviewed in consultation with Dr. Kingsley who concurs with the above diagnosis. IDC:AM MICROSCOPIC DESCRIPTION Slides are reviewed. GROSS DESCRIPTION Received in fixative is one container labeled with the patient's name and designated right upper lobe lung. The specimen consists of multiple irregular fragments of calderón soft tissue that in aggregate measure 0.5 x 0.1 x 0.1 cm. The specimen is totally submitted in one cassette. Three touch imprints are prepared at the time of core biopsy. / TOSHA:landon 03/28/2023 TC:5 CPT: 35041, 20649
--- NOTE | 2023-03-28 09:15 | CT_ITS ---
PROCEDURE: CT GUIDED CORE NEEDLE BIOPSY OF A right upper lobe LUNG LESION INDICATION: Female, 63 years old. RU mass PHYSICIAN: Dr. Stan Richard CONSENT: Written informed consent was obtained having explained the risks, benefits and alternatives in detail with the patient who accepted the risks and agreed to proceed. Laboratory review and clinical assessment was performed. CONSCIOUS SEDATION PROTOCOL: The Drugs used were: 2 mg Versed, IV., and 50 mcg Fentanyl, IV. The sedation time was: 30 minutes. Conscious sedation was started at 10:31 AM and terminated at 11:01 AM. The conscious sedation protocol was independently monitored. RADIATION DOSAGE (If Supplied By Facility): CTDIvol = ( 22 ) mGy, DLP = ( 846.22 ) mGycm Individualized dose optimization techniques were used for this CT. TECHNIQUE: The patient was placed in the supine position. A noncontrast CT was performed to localize the lesion in the right upper lobe . The skin surface was prepped and draped in a sterile fashion. 1% lidocaine was used for local anesthesia. Conscious sedation was performed. Using CT guidance, a 20-gauge coaxial biopsy device was advanced to the periphery of the lesion. A total of 7 core specimens were obtained. The specimens were placed in a formalin solution. A post procedure CT demonstrated no adverse sequelae or pneumothorax. The patient tolerated the procedure well without adverse event. A negative biopsy does not exclude malignancy. Further imaging or clinical followup based on patient condition and degree of clinical suspicion for malignancy. Suggest rebiopsy, if biopsy results do not match with clinical scenario. CT/Biopsy/Inj or Needle Placement IMPRESSION: 1. CT directed core needle biopsy of the right upper lobe pulmonary nodule using CT image guidance with image documentation as described. Pathology results are pending. 2. Conscious Sedation protocol utilized with independent monitoring. Electronically Signed: Marvel Pierce MD at 12:40 EDT ,
[2023-03-28 09:19] LABS: Absolute Lymphocyte Count 3.15 X10^3/uL (0.83-4.51); Absolute Neutrophil Count 5.6 X10^3/uL (2.0-7.7); Basophil# 0.04 X10^3/uL; Basophil% 0.4 % (0-1); Eosinophil# 0.25 X10^3/uL; Eosinophils% 2.5 % (0-5); Hemoglobin 14.4 g/dL (12.0-15.0); Lymphocyte # 3.15 X10^3/ul (0.83-4.51); Lymphocyte % 31.7 % (19-41); Mean Corpuscular Hgb 32.1 pg (27.0-32.0); Mean Corpuscular Volume 100.2 fL (81-99); Mean Platelet Vol. 10.3 fl (6.2-12.0); Monocyte# 0.91 X10^3/uL; Monocyte% 9.2 % (0-10); NRBC Flagged by Analyzer 0 % (0-5); Neutrophil # 5.56 X10^3/uL (2.7-7.7); Platelet Count 269 K/mm3 (150-450); RBC Distribution Width CV 13.4 % (11.6-14.6); RBC Distribution Width SD 49.8 fl (35.1-43.9); Red Blood Count 4.49 M/mm3 (4.2-5.4); White Blood Count 9.9 K/mm3 (4.4-11.0)
[2023-03-28 09:31] LABS: Partial Thromboplast Time 27.9 Seconds (24.1-36.2); Prothrombin Time (Protime)PT. 12.8 SECONDS (11.7-14.9)
[2023-03-28] MEDS: 0.9% Normal Saline (250mL Bag) 250 ML 15 ML IV (10:25)
[2023-03-28] MEDS: Midazolam 2 MG/2 ML Syringe IV (10:31)
[2023-03-28] MEDS: fentaNYL 100 MCG/2 ML Ampul IV (10:34)
[2023-03-28] MEDS: Lidocaine 2% (20 ml mdv) 20 ML Vial INFILT (10:50)
--- NOTE | 2023-03-28 11:05 | RAD_ITS ---
STUDY: X-RAY CHEST REASON FOR EXAM: Female, 63 years old. Immediately post lung biopsy -- Immediately post lung biopsy TECHNIQUE: AP inspiration and expiration views. COMPARISON: Comparison is made with prior study of August 25, 2021. FINDINGS: EKG electrodes are seen. There is no evidence of pneumothorax on the immediate post right lung biopsy radiographs. RAD/Chest Insp/Exp 2 View IMPRESSION: No evidence of pneumothorax on the immediate post right lung biopsy radiographs. Electronically Signed: Marvel Pierce MD at 12:52 EDT ,
--- NOTE | 2023-03-28 13:03 | RAD_ITS ---
STUDY: X-RAY CHEST REASON FOR EXAM: Female, 63 years old. 2 hours post lung biopsy TECHNIQUE: AP inspiration and expiration views. COMPARISON: Comparison is made with prior study done earlier today. FINDINGS: There is no evidence of pneumothorax on the two-hour delayed post right lung biopsy radiographs. RAD/Chest Insp/Exp 2 View IMPRESSION: No evidence of pneumothorax on the two-hour delayed post right lung biopsy radiographs. Electronically Signed: Marvel Pierce MD at 13:28 EDT ,
== END | disposition home or self-care (01) ==
PROVIDERS: Radiology Diagnostic Radiology; PCP Family Medicine; Referring Provider Nurse Practitioner Acute Care; Visit Provider Nurse Practitioner Acute Care
DX: Z01.818 Encounter for other preprocedural examination (principal); R91.8 Other nonspecific abnormal finding of lung field; R91.1 Solitary pulmonary nodule
CPT/HCPCS: 32408; J2405; 36415; 71046; 77012; 85025; 85610; 85730; 88172; 88305; 88313; 99156; 99157; J7050; A4216; C2613

== ENCOUNTER → 2023-05-11 | Outpatient (CLI) | payer MEDICAID, SELFPAY ==
--- NOTE | 2023-05-11 13:10 | CT_ITS ---
INDICATION: Fever and cough, lung nodule EXAMINATION: CT CHEST WITHOUT CONTRAST - CT Chest W/O Contrast Injection TECHNIQUE: Helically acquired images were obtained of the chest. A radiation dose optimization technique was used for this scan. IV Contrast dosage and agent: None. COMPARISON: 02/14/2023 FINDINGS: LUNGS, PLEURA AND LARGE AIRWAYS: Lung windows show the lungs to be mildly hyperexpanded with emphysematous blebs noted. Stable appearance of a spiculated right upper lobe nodule again measuring 1.7 cm on axial image 48. This has undergone biopsy in March. Stable appearance also of a 7 mm nodule in the right upper lobe on axial image 45. No pleural effusion or thickening. No new suspicious noncalcified mass or nodule. No organized infiltrate or effusion. THYROID: No thyroid lesions. HEART AND PERICARDIUM: Heart size is normal. No pericardial effusion. CORONARY ARTERIES: Coronary artery calcification is seen. VESSELS: Thoracic aorta is not dilated. MEDIASTINUM AND CHANCE: No suspicious axillary, mediastinal or hilar adenopathy. Esophagus is unremarkable. No hiatal hernia. UPPER ABDOMEN: No acute pathology. BONES: No suspicious lytic or blastic abnormality. Bony structures show degenerative change CT/Chest without Contrast IMPRESSION: Stable noncalcified right upper lobe nodules, the larger has undergone previous biopsy. No new suspicious mass or nodule. Six-month follow-up recommended to assess stability No organized infiltrate or effusion No suspicious adenopathy Degenerative bony changes Electronically Signed: Shaheed Ashby MD at 15:36 EDT ,
== END | disposition home or self-care (01) ==
LOC: CT 13:09
PROVIDERS: PCP Family Medicine; Referring Provider Nurse Practitioner Acute Care; Visit Provider Nurse Practitioner Acute Care
DX: R91.1 Solitary pulmonary nodule (principal)
CPT/HCPCS: 32408; 71250

== ENCOUNTER → 2023-11-15 | Outpatient (CLI) | payer MEDICAID, SELFPAY ==
[2023-11-15 15:38] LABS: Hematocrit 48.2 % (37-47); Hemoglobin 15.9 g/dL (12.0-15.0); Mean Corpuscular Hgb 32.2 pg (27.0-32.0); Mean Corpuscular Volume 97.6 fL (81-99); Mean Platelet Vol. 10.9 fl (6.2-12.0); Platelet Count 264 K/mm3 (150-450); Red Blood Count 4.94 M/mm3 (4.2-5.4); White Blood Count 10.6 K/mm3 (4.4-11.0)
[2023-11-15 16:14] LABS: Anion Gap 6 (5-15); BUN 26 mg/dL (7-18); BUN/Creat Ratio 14.4 RATIO (10-20); Calcium,Total 9.1 mg/dL (8.5-10.1); Chloride 107 mmol/L (98-107); Creatinine, Serum 1.81 mg/dL (0.55-1.02); EST Glomerular Filtration Rate 30 mL/min (>60); Est Glom Filt Rate - Afr Amer 37 mL/min (>60); Glucose 108 mg/dL (74-106); Sodium Level 140 mmol/L (136-145)
== END | disposition home or self-care (01) ==
LOC: MTLAB 14:03
PROVIDERS: PCP Family Medicine; Referring Provider Urology; Visit Provider Urology
DX: R35.1 Nocturia (principal)
CPT/HCPCS: 36415; 80048; 85027

== ENCOUNTER 2023-11-24 09:04 | Day surgery (SDC) | payer MEDICAID, SELFPAY ==
[2023-11-24] VITALS (7 sets, daily range): BP systolic 101–123; BP diastolic 53–72; PULSE 79–84; RESP 16–20; TEMP 36.6–37.4; O2SAT 93–95; BMI 46.5
[2023-11-24] MEDS: Lactated Ringers 1,000 ML 15 ML IV (09:46)
[2023-11-24 10:06] LABS: Bedside Glucose 104 mg/dL (74-106)
[2023-11-24] MEDS: Clindamycin 900 MG/50 ML BAG 75 MG IV (10:59)
[2023-11-24] MEDS: Lidocaine 1% /Epi 1:100 (20ml) 20 ML Vial (11:11)
--- NOTE | 2023-11-24 11:41 | EX.PCM.DISCH ---
Discharge Instructions Diet Discharge Diet: No restrictions Activity Discharge Activity: Return to Normal Activity and May Shower (on Tuesday) May resume sexual activity in: 1 week Dressing / Incision Call your doctor if your incision/area has: Continuous Slow Oozing, Sudden Increased Bleeding, Increased Pain/ Swelling, Increased Redness, Foul Smelling Discharge and Swelling at the incision site Call your doctor if you observe: Fever of 101 or Higher, Inability to urinate and Inability to have a bowel movement Follow Up Care Please Follow Up With: Jennifer Alba MD When: 3-4 weeks in the office. Test Results: Test results from this visit will be discussed in further detail at your follow-up appointment, if applicable. Discharge Plan Admission Attending Provider: Jennifer Alba Primary Care Provider: Homer Bradford Discharge Orders/Prescriptions Prescriptions: New oxycodone-acetaminophen [Percocet] 5-325 mg tablet 1 tab PO Q8H PRN (Reason: pain) 3 Days Qty: 10 0RF cephalexin [cephalexin] 500 mg capsule 500 mg PO Q12 3 Days Qty: 6 0RF Continued lovastatin 20 mg tablet 20 mg PO QDAY melatonin 10 mg capsule 10 mg PO HS PRN (Reason: Sleep) nitroglycerin 0.4 mg tablet, sublingual 0.4 mg SUBLINGUAL Q5M PRN (Reason: CHEST PAIN) hyoscyamine sulfate [Oscimin SR] 0.375 mg tablet extended release 12 hr 0.375 mg PO BID spironolactone 25 mg tablet 25 mg PO QDAY lorazepam [Ativan] 0.5 mg tablet 0.5 mg PO Q12H PRN (Reason: Anxiety) vitamin B complex [B Complex-Vitamin B12] Tablet 1 tab PO BID omega-3 fatty acids-fish oil [Fish Oil] 360-1,200 mg capsule 1 cap PO BID ipratropium-albuterol 0.5 mg-3 mg(2.5 mg base)/3 mL Solution For Nebulization 3 ml inhalation Q4HWA.RT PRN (Reason: shortness of breath or wheezing) Qty: 0 0RF rizatriptan 10 mg Tablet 10 mg PO DAILY PRN (Reason: migraine headache) Qty: 0 0RF Eliquis 5 mg tablet 5 mg PO BID Patient Comments: STOP 2 DAYS PRIOR TO OR citalopram [Celexa] 10 mg tablet 10 mg PO DAILY furosemide 20 mg tablet 20 mg PO BID omeprazole 40 mg capsule,delayed release(DR/EC) 40 mg PO DAILY trazodone 100 mg tablet 200 mg PO QHS albuterol sulfate [Ventolin HFA] 90 mcg/actuation HFA aerosol inhaler 1 puff INHALATION Q6H Qty: 8.5 12RF Referrals / Follow Up: Homer Bradford MD [Primary Care Provider] - Disposition Disposition (needs filled in before D/C Order can be placed): Home, Self Care
--- NOTE | 2023-11-24 11:45 | PCM.OPRPT ---
Report of Operation Date of Procedure: 11/24/23 Pre-Operative Diagnosis: Urge incontinence, nonfunctioning InterStim Post-Operative Diagnosis: Same Surgery/Procedure Performed:: Removal InterStim battery and lead Surgeon: Jennifer Alba Type of Anesthesia: MAC Specimen's removed: None Estimated Blood Loss (mL): 5 cc Description of Procedure: The patient is a 63-year-old female desiring removal of her nonfunctioning InterStim battery and lead. Informed consent was obtained. The patient had her Eliquis held. She was brought to the operating room and placed on an operating room table in a prone position. She was appropriately padded and secured to the table. Anesthesia monitored the head, neck, airway, IV access and vital signs throughout the case. Once anesthesia was appropriately administered, the patient was prepped and draped in usual sterile fashion. The area overlying the battery was infiltrated with lidocaine with epinephrine as was the area overlying the lead insertion site. A 15 blade was used to make an incision over the pocket site and dissection was performed using Bovie cautery and blunt dissection. The lead and the battery were identified and brought into the operative field. The lead was cut with heavy scissors and the battery was removed. An incision was made over the lead insertion site. Using a hemostat, the lead was grasped and the incision and brought into the operative field. It was removed with steady tension using 2 hemostats. It was removed in its entirety. Both incisions were irrigated with sterile water. Bovie cautery was used for hemostasis. Each incision was closed with 3-0 interrupted Vicryl deep and superficial 4-0 Monocryl subcuticular. Both incisions were then covered in skin glue. The patient was then awakened and taken to the recovery room in good condition. There were no complications during this procedure. Grafts/Implants Used: None Complications None Admit VTE Documentation VTE Present on Admission: Yes VTE Mechan Device Prophylaxis: SCD's VTE Pharm Prophylaxis ordered?: Yes
== END 2023-11-24 12:30 | disposition home or self-care (01) ==
LOC: SDC 09:05 → AC 09:07
PROVIDERS: PCP Family Medicine; Referring Provider Urology; Visit Provider Urology
PROC: (CPT 64585; principal; 2023-11-24 10:30)
DX: Z45.42 Encounter for adjustment and management of neurostimulator (principal); J44.9 Chronic obstructive pulmonary disease, unspecified; I48.0 Paroxysmal atrial fibrillation; E11.9 Type 2 diabetes mellitus without complications; N39.41 Urge incontinence; F17.210 Nicotine dependence, cigarettes, uncomplicated; Z86.73 Personal history of transient ischemic attack (TIA), and cerebral infarction without residual deficits; Z79.01 Long term (current) use of anticoagulants; R35.1 Nocturia
CPT/HCPCS: 64585; 82962; J7120; J2405

== ENCOUNTER 2024-09-12 10:24 | Inpatient (IN) | payer MEDICAID, SELFPAY ==
[2024-09-12] VITALS (8 sets, daily range): BP systolic 93–136; BP diastolic 45–83; PULSE 88–105; RESP 15–20; TEMP 35.9–37.8; O2SAT 90–97; BMI 47.6; BMI 45.4
--- NOTE | 2024-09-12 11:01 | EKG12_ITS ---
Test Reason : Blood Pressure : */* mmHG Vent. Rate : 93 BPM Atrial Rate : 93 BPM P-R Int : 162 ms QRS Dur : 88 ms QT Int : 360 ms P-R-T Axes : 57 0 61 degrees QTcB Int : 447 ms Normal sinus rhythm Normal ECG Confirmed by Kam Turk ([id number]), dictionary editor FLORES BOUCHER ([id number]) on 09/13/2024 9:33:48 AM Referred By: TA/TB Confirmed By: Kam Turk
--- NOTE | 2024-09-12 11:01 | RAD_ITS ---
PROCEDURE: CHEST 1 VIEW (PORTABLE) REASON FOR EXAM: Chest pain. Left shoulder pain. TECHNIQUE: Frontal view of the chest. COMPARISON: CT chest dated 05/11/2023 FINDINGS: Lungs: Lungs clear of pneumonia and congestion. Pleura: No pleural effusions, thickening, or pneumothorax. Heart: Normal in size and configuration. Mediastinum/Fide: Unremarkable. Great vessels: Unremarkable. Bones/soft tissues: Unremarkable. Cardiac monitoring leads overlie the chest wall. RAD/Chest 1 View (Portable) IMPRESSION: No active cardiopulmonary disease. Reading Location: [place] [id number]
--- NOTE | 2024-09-12 11:03 | EDS_ITS ---
HPI History of Present Illness Chief Complaint: Chest Pain Narrative Narrative: 64-year-old female past medical history of psychiatric disorder/tar dive dyskinesia presents via EMS with multiple somatic complaints. She states that she was just released from a mental hospital in [place] yesterday. She lives here. She states over the last 3 weeks she has had intermittent fever. Additionally she states that she has had chest pain as well as left shoulder pain that is chronic for her. States her heart hurts and she has history of kidney disease. Her friend who is with her states that she came back to the area and all her primary care providers are here. She once again presents with multiple complaints. [facility] Medical History History of echocardiogram Wears glasses Anxiety Depression Post-menopausal History of renal disease High cholesterol Back pain TIA (transient ischemic attack) Gastric reflux Smoker Shortness of breath on exertion History of pain when walking History of edema Cardiology follow-up encounter History of heart attack Chest pain History of left heart catheterization (LHC) (~12/30/20) CKD (chronic kidney disease) stage 3, GFR 30-59 ml/min Lung nodule COPD (chronic obstructive pulmonary disease) Paroxysmal atrial fibrillation Elevated liver enzymes Acute respiratory failure with hypoxia Stroke IBS (irritable bowel syndrome) Hyperlipidemia Heart disease Migraines Frequent headaches Gastrointestinal problem Diabetes History of back problems Asthma Arthritis Home Medications ?Medication ?Instructions ?Recorded ?Last Taken ?Type hyoscyamine sulfate 0.375 mg 0.375 mg PO BID 06/22/17 09/08/20 History tablet,extended release,12 hr (Oscimin SR) lovastatin 20 mg tablet 20 mg PO QDAY 06/22/1709/08 History ipratropium 0.5 mg-albuterol 3 mg 3 ml inhalation Q4HW A.RT PRN 09/07/21 Unknown Rx (2.5 mg base)/3 mL nebulization shortness of breath or wheezing #0 soln mL lorazepam 0.5 mg tablet (Ativan) 0.5 mg PO Q12H PRN An xiety 09/28/21 Unknown History omega-3 fatty acids-fish oil 360 1 cap PO BID 03/04/23 Unknown History mg-1,200 mg capsule (Fish Oil) vitamin B complex (B 1 tab PO BID 03/04/23 Unknow n History Complex-Vitamin B12 tablet) albuterol sulfate 90 mcg/actuation 1 puff inhalation Q 6H #8.5 grams 05/13/23 Unknown Rx aerosol inhaler (Ventolin HFA) citalopram 10 mg tablet (Celexa) 10 mg PO DAILY Unknown History furosemide 20 mg tablet 20 mg PO BID 11/18/23 Unknow n History omeprazole 40 mg capsule,delayed 40 mg PO DAILY Unknown History release trazodone 100 mg tablet 200 mg PO QHS 11/18/23 Unkno wn History apixaban 5 mg tablet (Eliquis) 5 mg PO Q12H 09/12/24 U nknown History quetiapine 200 mg tablet,extended 200 mg PO BID Unknown History release 24 hr Allergy/AdvReac Type Severity Reaction Status Date / Time Penicillins Allergy Intermediate Hives Verified 09/12/24 10:32 carbamazepine (From Tegretol) AdvReac Intermediate Nausea Verified 09/12/24 10:32 benztropine AdvReac Unknown Verified 09/12/24 10:32 diazepam (From Valium) AdvReac Other Verified 09/12/24 10:32 Sulfa (Sulfonamide AdvReac Nausea Verified 09/12/24 10:32 Antibiotics) thioridazine AdvReac Nausea Verified 09/12/24 10:32 thioridazine HCl (From AdvReac Other Verified 09/12/24 10:32 Mellaril) Family History Grandmother Cancer stomach Father Cancer lung Sister Breast cancer Surgical History Hx of surgical procedure History of carpal tunnel surgery History of elbow surgery H/O shoulder surgery H/O hand surgery H/O dilation and curettage Hx of cholecystectomy History of tonsillectomy Social History household members: family housing: other details: Mobile home Smoking Status: Heavy Smoker (>10/day) alcohol intake: never substance use type: does not use caffeine: Yes what type of physical activity do you participate in: walking seatbelt use: always do you feel safe at home: Yes ROS ROS ED ROS Narrative Constitutional: Positive fever, no chills. HEENT: No sore throat. No neck pain. No loss of vision. No rhinorrhea. Cardiovascular: 3 weeks chest pain. No palpitations. Worsening pedal edema. Respiratory: No cough, no shortness of breath. Abdominal: No abdominal pain. No nausea. No vomiting. Genitourinary: No dysuria. No hematuria. Musculoskeletal: No myalgias. No arthralgias. Neurologic: No headaches. No dizziness. No lightheadedness. Skin: No rash. No change in color. Psychiatric: No depression. No anxiety. EXAM Physical Exam Narrative Exam Narrative: Afebrile. Vital signs noted. Slightly drowsy on examination. Cardiovascular examination reveals mild tachycardia. Lungs clear to auscultation bilaterally. Abdomen soft nontender without guarding or rebound. Trace pedal edema bilateral, equal and symmetric. Const Vital Signs: 09/12/24 10:25 Temperature 98.1 F Temperature Source Temporal Pulse Rate 105 H Respiratory Rate 19 H Blood Pressure 100/65 Blood Pressure Mean 76 Pulse Ox 92 Oxygen Delivery Method Room Air Discharge Plan Triage Chief Complaint: Chest Pain ED Provider: Randy Cabrales Dx/Rx/DC Orders Prescriptions: No Action lovastatin 20 mg tablet 20 mg PO QDAY hyoscyamine sulfate [Oscimin SR] 0.375 mg tablet extended release 12 hr 0.375 mg PO BID lorazepam [Ativan] 0.5 mg tablet 0.5 mg PO Q12H PRN (Reason: Anxiety) vitamin B complex [B Complex-Vitamin B12] Tablet 1 tab PO BID omega-3 fatty acids-fish oil [Fish Oil] 360-1,200 mg capsule 1 cap PO BID ipratropium-albuterol 0.5 mg-3 mg(2.5 mg base)/3 mL Solution For Nebulization 3 ml inhalation Q4HWA.RT PRN (Reason: shortness of breath or wheezing) Qty: 0 0RF quetiapine 200 mg tablet extended release 24 hr 200 mg PO BID Patient Comments: [NO ORIGINAL SIG] Eliquis 5 mg tablet 5 mg PO Q12H citalopram [Celexa] 10 mg tablet 10 mg PO DAILY furosemide 20 mg tablet 20 mg PO BID omeprazole 40 mg capsule,delayed release(DR/EC) 40 mg PO DAILY trazodone 100 mg tablet 200 mg PO QHS albuterol sulfate [Ventolin HFA] 90 mcg/actuation HFA aerosol inhaler 1 puff INHALATION Q6H Qty: 8.5 12RF Primary Care Provider: Homer Bradford Referrals: Homer Bradford MD [Primary Care Provider] - Print Language: Sammarinese
--- NOTE | 2024-09-12 11:03 | EX.ED.DYSGE1 ---
HPI History of Present Illness Chief Complaint: Chest Pain Narrative Narrative: 64-year-old female past medical history of psychiatric disorder/tar dive dyskinesia presents via EMS with multiple somatic complaints. She states that she was just released from a mental hospital in [place] yesterday. She lives here. She states over the last 3 weeks she has had intermittent fever. Additionally she states that she has had chest pain as well as left shoulder pain that is chronic for her. States her heart hurts and she has history of kidney disease. Her friend who is with her states that she came back to the area and all her primary care providers are here. She once again presents with multiple complaints. [facility] Medical History History of echocardiogram Wears glasses Anxiety Depression Post-menopausal History of renal disease High cholesterol Back pain TIA (transient ischemic attack) Gastric reflux Smoker Shortness of breath on exertion History of pain when walking History of edema Cardiology follow-up encounter History of heart attack Chest pain History of left heart catheterization (LHC) (~12/30/20) CKD (chronic kidney disease) stage 3, GFR 30-59 ml/min Lung nodule COPD (chronic obstructive pulmonary disease) Paroxysmal atrial fibrillation Elevated liver enzymes Acute respiratory failure with hypoxia Stroke IBS (irritable bowel syndrome) Hyperlipidemia Heart disease Migraines Frequent headaches Gastrointestinal problem Diabetes History of back problems Asthma Arthritis Home Medications ?Medication ?Instructions ?Recorded ?Last Taken ?Type hyoscyamine sulfate 0.375 mg 0.375 mg PO BID 06/22/17 09/08/20 History tablet,extended release,12 hr (Oscimin SR) lovastatin 20 mg tablet 20 mg PO QDAY 06/22/17 09/08/20 History ipratropium 0.5 mg-albuterol 3 mg 3 ml inhalation Q4HWA.RT PRN 09/07/21 Unknown Rx (2.5 mg base)/3 mL nebulization shortness of breath or wheezing #0 soln mL lorazepam 0.5 mg tablet (Ativan) 0.5 mg PO Q12H PRN Anxiety 09/28/21 Unknown History omega-3 fatty acids-fish oil 360 1 cap PO BID 03/04/23 Unknown History mg-1,200 mg capsule (Fish Oil) vitamin B complex (B 1 tab PO BID 03/04/23 Unknown History Complex-Vitamin B12 tablet) albuterol sulfate 90 mcg/actuation 1 puff inhalation Q6H #8.5 grams 05/13/23 Unknown Rx aerosol inhaler (Ventolin HFA) citalopram 10 mg tablet (Celexa) 10 mg PO DAILY 11/18/23 Unknown History furosemide 20 mg tablet 20 mg PO BID 11/18/23 Unknown History omeprazole 40 mg capsule,delayed 40 mg PO DAILY 11/18/23 Unknown History release trazodone 100 mg tablet 200 mg PO QHS 11/18/23 Unknown History apixaban 5 mg tablet (Eliquis) 5 mg PO Q12H 09/12/24 Unknown History quetiapine 200 mg tablet,extended 200 mg PO BID 09/12/24 Unknown History release 24 hr Allergy/AdvReac Type Severity Reaction Status Date / Time Penicillins Allergy Intermediate Hives Verified 09/12/24 10:32 carbamazepine (From Tegretol) AdvReac Intermediate Nausea Verified 09/12/24 10:32 benztropine AdvReac Unknown Verified 09/12/24 10:32 diazepam (From Valium) AdvReac Other Verified 09/12/24 10:32 Sulfa (Sulfonamide AdvReac Nausea Verified 09/12/24 10:32 Antibiotics) thioridazine AdvReac Nausea Verified 09/12/24 10:32 thioridazine HCl (From AdvReac Other Verified 09/12/24 10:32 Mellaril) Family History Grandmother Cancer stomach Father Cancer lung Sister Breast cancer Surgical History Hx of surgical procedure History of carpal tunnel surgery History of elbow surgery H/O shoulder surgery H/O hand surgery H/O dilation and curettage Hx of cholecystectomy History of tonsillectomy Social History household members: family housing: other details: Mobile home Smoking Status: Heavy Smoker (>10/day) alcohol intake: never substance use type: does not use caffeine: Yes what type of physical activity do you participate in: walking seatbelt use: always do you feel safe at home: Yes ROS ROS ED ROS Narrative Constitutional: Positive fever, no chills. HEENT: No sore throat. No neck pain. No loss of vision. No rhinorrhea. Cardiovascular: 3 weeks chest pain. No palpitations. Worsening pedal edema. Respiratory: No cough, no shortness of breath. Abdominal: No abdominal pain. No nausea. No vomiting. Genitourinary: No dysuria. No hematuria. Musculoskeletal: No myalgias. No arthralgias. Neurologic: No headaches. No dizziness. No lightheadedness. Skin: No rash. No change in color. Psychiatric: No depression. No anxiety. EXAM Physical Exam Narrative Exam Narrative: Afebrile. Vital signs noted. Slightly drowsy on examination. Cardiovascular examination reveals mild tachycardia. Lungs clear to auscultation bilaterally. Abdomen soft nontender without guarding or rebound. Trace pedal edema bilateral, equal and symmetric. Const Vital Signs: 09/12/24 10:25 09/12/24 11:04 09/12/24 11:35 Temperature 98.1 F Temperature Source Temporal Pulse Rate 105 H 101 H Respiratory Rate 19 H 15 Blood Pressure 100/65 113/66 Blood Pressure Mean 76 81 Pulse Ox 92 90 Oxygen Delivery Method Room Air Room Air Room Air 09/12/24 13:00 09/12/24 15:00 Temperature 99.4 F H Temperature Source Pulse Rate 102 H 101 H Respiratory Rate 20 H 20 H Blood Pressure 136/83 H 93/56 L Blood Pressure Mean 98 68 Pulse Ox 93 97 Oxygen Delivery Method MDM MDM MDM Narrative Medical decision making narrative: Differential diagnosis includes but not limited to COPD exacerbation versus exacerbation of her tardive dyskinesia versus ACS versus pneumonia versus pneumothorax. Comprehensive workup was pursued. EKG obtained and interpreted by myself independently as normal sinus rhythm at 93 bpm without ectopy or acute ST changes. No STEMI. I reviewed her laboratory work and she has a white count of 9.0 with hemoglobin 14.0, hematocrit 42.9, platelet count 231. INR 1.3 with a PTT 30.9. Her creatinine is elevated at 1.4 but when compared to prior labs has been as high as 1.8. She does have history of chronic kidney disease. Initial high-sensitivity troponin is 23 with repeat at 2 hours being 19. I find this unacceptable delta troponin and feel that she has been ruled out with biomarkers for ACS. BNP is normal at 130 so I doubt CHF. Urinalysis obtained and is negative for ketones, negative for infection. I do not feel antibiotics are indicated. Her friend thought that maybe she had recent slurring of her speech. I obtained a CT of the brain and there is an area of concern in the left basal ganglia with low-attenuation concerning for recent stroke. I find this more of an incidental finding and do not feel that stroke team needed to be activated and I do not feel she is a TNK candidate because there is no last known well time and it may be more subacute in nature. Given her borderline hypoxia at 92 to 93% on room air, and that she dipped down to 90% on room air, she was placed on nasal cannula oxygen and administered dexamethasone 6 mg intravenously. I do feel that she merits observation for possible ganglia stroke as well as the COVID and borderline. Patient was discussed with the hospitalist. She is in stable condition. History & Record Review Discussion w/independent historian: Patient and Friend Lab Data Attestation: I reviewed the patient's lab results. Labs: Laboratory Results - last 24 hr 09/12/24 09/12/24 09/12/24 11:22 12:30 12:58 WBC 9.0 RBC 4.46 Hgb 14.0 Hct 42.9 MCV 96.2 MCH 31.4 MCHC 32.6 RDW Std Deviation 47.2 H RDW Coeff of Robert 13.2 Plt Count 231 MPV 10.4 Immature Gran % (Auto) 0.300 Neut % (Auto) 85.1 H Lymph % (Auto) 5.9 L Yates % (Auto) 8.4 Eos % (Auto) 0.1 Baso % (Auto) 0.2 Absolute Neuts (auto) 7.7 Absolute Lymphs (auto) 0.53 L Nucleated RBC % 0 PT 16.1 H INR 1.3 APTT 30.9 Sodium 139 Potassium 3.6 Chloride Direct 103 Carbon Dioxide 24.2 Anion Gap 12 BUN 14 Creatinine 1.4 H Estim Creat Clear Calc 53.30 Est GFR (MDRD) Non-Af 44 L BUN/Creatinine Ratio 10.2 Glucose 117 H Lactic Acid 1.6 Calcium 9.0 Total Bilirubin 0.69 AST 28 ALT 17 Alkaline Phosphatase 78 Troponin T High Sens 23 H Delta Troponin T 4 Troponin T Hi Sens 2 Hr 19 H Troponin T Hi Sens 4Hr NT pro BNP II 130 Total Protein 6.5 Albumin 3.9 Globulin 2.6 Albumin/Globulin Ratio 1.5 Urine Color Yellow Urine Clarity Clear Urine pH 6.0 Ur Specific Williamson 1.010 Urine Protein Negative Urine Glucose (UA) Normal Urine Ketones Negative Urine Occult Blood 50 H Urine Nitrite Negative Urine Bilirubin Negative Urine Urobilinogen Normal Ur Leukocyte Esterase Negative Urine RBC 0-5 SEEN Urine WBC 0 SEEN Ur Squamous Epith Cells 0 SEEN Urine Bacteria 0 SEEN Urine Mucus 0 SEEN 09/12/24 13:30 WBC RBC Hgb Hct MCV MCH MCHC RDW Std Deviation RDW Coeff of Robert Plt Count MPV Immature Gran % (Auto) Neut % (Auto) Lymph % (Auto) Yates % (Auto) Eos % (Auto) Baso % (Auto) Absolute Neuts (auto) Absolute Lymphs (auto) Nucleated RBC % PT INR APTT Sodium Potassium Chloride Direct Carbon Dioxide Anion Gap BUN Creatinine Estim Creat Clear Calc Est GFR (MDRD) Non-Af BUN/Creatinine Ratio Glucose Lactic Acid Calcium Total Bilirubin AST ALT Alkaline Phosphatase Troponin T High Sens Delta Troponin T Troponin T Hi Sens 2 Hr Troponin T Hi Sens 4Hr 20 H NT pro BNP II Total Protein Albumin Globulin Albumin/Globulin Ratio Urine Color Urine Clarity Urine pH Ur Specific Williamson Urine Protein Urine Glucose (UA) Urine Ketones Urine Occult Blood Urine Nitrite Urine Bilirubin Urine Urobilinogen Ur Leukocyte Esterase Urine RBC Urine WBC Ur Squamous Epith Cells Urine Bacteria Urine Mucus Radiography Diagnostic Testing: Clinical Impression(s) from Imaging Studies Chest X-Ray 09/12/24 11:01 IMPRESSION: No active cardiopulmonary disease. Reading Location: [facility] 09/12/24 11:40 IMPRESSION: 1. Left basal ganglia area of diminished attenuation concerning for recent area of ischemic infarction. 2. Bilateral maxillary sinus inflammation. Reading Location: [facility] Management Discussion w/another healthcare provider: Hospitalist (Dr. Denton) Discharge Plan Dx/Rx/DC Orders Clinical Impression: COVID, Chest pain, COPD exacerbation, CKD (chronic kidney disease) stage 3, GFR 30-59 ml/min Disposition [facility]
[2024-09-12 11:35] LABS: Absolute Lymphocyte Count 0.53 X10^3/uL (0.83-4.51); Absolute Neutrophil Count 7.7 X10^3/uL (2.0-7.7); Basophil# 0.02 X10^3/uL; Basophil% 0.2 % (0-1); Eosinophil# 0.01 X10^3/uL; Eosinophils% 0.1 % (0-5); Hematocrit 42.9 % (37-47); Lymphocyte # 0.53 X10^3/ul (0.83-4.51); Lymphocyte % 5.9 % (19-41); Mean Corp Hgb Conc 32.6 g/dL (32-36); Mean Corpuscular Hgb 31.4 pg (27.0-32.0); Mean Corpuscular Volume 96.2 fL (81-99); Mean Platelet Vol. 10.4 fl (6.2-12.0); Monocyte# 0.76 X10^3/uL; Monocyte% 8.4 % (0-10); NRBC Flagged by Analyzer 0 % (0-5); Neutrophil # 7.69 X10^3/uL (2.7-7.7); Neutrophil % 85.1 % (47-70); POSITIVE DIFFERENTIAL YES; Platelet Count 231 K/mm3 (150-450); RBC Distribution Width CV 13.2 % (11.6-14.6); RBC Distribution Width SD 47.2 fl (35.1-43.9); Red Blood Count 4.46 M/mm3 (4.2-5.4)
--- NOTE | 2024-09-12 11:40 | CT_ITS ---
EXAM: CT BRAIN WITHOUT CONTRAST CLINICAL HISTORY: MENTAL STATUS CHANGE. EVALUATE FOR CVA. COMPARISON: NO RELEVANT PRIOR. TECHNIQUE: Contiguous axial scans of 3.75 mm slice thicknesses with sagittal and coronal reconstruction images. One or more dose reduction techniques were utilized (e.g., automated exposure control, adjustment of mA and/or kv according to patient size, use of iterative reconstruction technique). FINDINGS: Cerebrum: No intraparenchymal hemorrhage. A 0.9 cm area of decreased attenuation is demonstrated in the left basal ganglia, axial image 19. No mass effect or midline shift. Cheng-white matter differentiation is normal. Ventricles and cisterns: Appropriate size for patient's age. Extra-axial fluid: Unremarkable. Posterior fossa: Unremarkable cerebellum. Punctate calcification in the left cerebellar hemisphere, axial image 12. No abnormalities involving the brainstem. Paranasal sinuses: Mild mucoperiosteal thickening in the maxillary sinuses.. Vasculature: Unremarkable. Mastoid air cells: Normal. Calvarium: Unremarkable. Soft tissues: Unremarkable. CT/Brain/Head without Contrast IMPRESSION: 1. Left basal ganglia area of diminished attenuation concerning for recent are a of ischemic infarction. 2. Bilateral maxillary sinus inflammation. Reading Location[facility]
[2024-09-12 11:48] LABS: International Normalized Ratio 1.3; Prothrombin Time (Protime)PT. 16.1 SECONDS (11.7-14.9)
[2024-09-12 11:53] LABS: Partial Thromboplast Time 30.9 Seconds (24.1-36.2)
[2024-09-12 12:02] LABS: Pro- Brain NATRIURETIC PEPTIDE 130 pg/mL (<=900)
[2024-09-12 12:19] LABS: Lactic Acid 1.6 mmol/L (0.0-2.0)
[2024-09-12] MEDS: 0.9% Normal Saline (1000mL) 1,000 ML 999 ML IV (12:25)
[2024-09-12 12:38] LABS: ALB/GLOB Ratio 1.5 RATIO (0.9-2.4); AST(SGOT) 28 U/L (<=31); Alanine Aminotransfer ALT/SGPT 17 U/L (<=34); Albumin, Serum 3.9 g/dL (3.4-4.8); Alkaline Phosphatase 78 U/L (35-104); Anion Gap 12 (5-15); BUN 14 mg/dL (4-19); BUN/Creat Ratio 10.2 RATIO (10-20); Carbon Dioxide 24.2 mmol/L (22.0-29.0); Chloride 103 mmol/L (96-108); Creatinine, Serum 1.4 mg/dL (0.6-1.0); EST Glomerular Filtration Rate 44 (>60); Globulin 2.6 g/dL (2.2-4.2); Glucose 117 mg/dL (70-99); Potassium 3.6 mmol/L (3.3-5.1); Protein, Total 6.5 g/dL (5.9-8.4); Sodium Level 139 mmol/L (133-145); Total Bilirubin 0.69 mg/dL (0.00-1.30)
[2024-09-12 12:45] LABS: Bacteria 0 SEEN /hpf (None Seen); Mucous, Urine 0 SEEN /hpf (<or=2+); Squamous Epithelial Cells - UA 0 SEEN /hpf (5-10); White Blood Cells 0 SEEN /hpf (0-5)
[2024-09-12 12:46] LABS: Color, Urine Yellow (Yellow); Glucose, Dipstick Normal (Normal); Ketone-Dipstick Negative (Negative); Leukocyte Esterase-Dipstick Negative /ul (Negative); Nitrite-Dipstick Negative (Negative); Occult Blood-Urine 50 /ul (Negative); Protein-Dipstick Negative (Negative); Urine Bilirubin Dipstick Negative (Negative); Urine Clarity Clear (Clear); Urine Urobilinogen Normal (Normal)
[2024-09-12 12:53] LABS: Troponin T High Sensitivity 23 ng/L (<=14)
[2024-09-12 12:53] LABS: Red Blood Cells-Urine 0-5 SEEN /hpf (0-5)
[2024-09-12] MEDS: dexAMETHasone 10 MG/ML Vial 6 MG IV (12:53)
[2024-09-12 13:29] LABS: TROPONIN VARIANCE 2 HR 4; Troponin T High Sens 2 HR 19 ng/L (<=14)
[2024-09-12 14:11] LABS: TROPONIN VARIANCE 4 HR 3; Troponin T High Sens 4 HR 20 ng/L (<=14)
--- NOTE | 2024-09-12 14:59 | PCM.HP.STD ---
[facility] - General General Date of Service: 09/12/24 Chief Complaint: difficulty speaking. [facility] Narrative PERNELL FISHER, is a 64 F who presents with difficulty speaking. Patient was recently admitted in a psychiatric facility in [facility] from the beginning of August to yesterday. The circumstances of that hospitalization are not known to the patient nor the family friend who is at bedside. He states that the patient was admitted there for concern for a blood clot but that likely did michael and switch admitted to a psychiatric facility for unclear reasons. While she was there her medication was discontinued and then she was sent home. Patient has been weak and then today when going to breakfast she had difficulty speaking which was concerning and brought her to the emergency room. In the emergency room, patient was noted to have COVID-19 and she had a head CT That showed a left basal ganglier area diminished attenuation concerning for recent area of ischemic infarction. Also showing bilateral maxillary sinus inflammation. Patient is a rather poor historian so much of the history is obtained to the emergency room physician as well as the patient's friend at bedside. Patient is confabulates at bedside and goes off on tangents that are not germane to the questions. [facility] Medical History (Updated 09/12/24 @ 15:[address] Wilfredo Denton, DO) History of echocardiogram Wears glasses Anxiety Depression Post-menopausal History of renal disease High cholesterol Back pain TIA (transient ischemic attack) Gastric reflux Smoker Shortness of breath on exertion History of pain when walking History of edema Cardiology follow-up encounter History of heart attack Chest pain History of left heart catheterization (LHC) (~12/30/20) CKD (chronic kidney disease) stage 3, GFR 30-59 ml/min Lung nodule COPD (chronic obstructive pulmonary disease) Paroxysmal atrial fibrillation Elevated liver enzymes Acute respiratory failure with hypoxia Stroke IBS (irritable bowel syndrome) Hyperlipidemia Heart disease Migraines Frequent headaches Gastrointestinal problem Diabetes History of back problems Asthma Arthritis Home Medications ?Medication ?Instructions ?Recorded ?Last Taken ?Type hyoscyamine sulfate 0.375 mg 0.375 mg PO BID 06/22/17 09/08/20 History tablet,extended release,12 hr (Oscimin SR) lovastatin 20 mg tablet 20 mg PO QDAY 06/22/17 09/08/20 History ipratropium 0.5 mg-albuterol 3 mg 3 ml inhalation Q4HWA.RT PRN 09/07/21 Unknown Rx (2.5 mg base)/3 mL nebulization shortness of breath or wheezing #0 soln mL lorazepam 0.5 mg tablet (Ativan) 0.5 mg PO Q12H PRN Anxiety 09/28/21 Unknown History omega-3 fatty acids-fish oil 360 1 cap PO BID 03/04/23 Unknown History mg-1,200 mg capsule (Fish Oil) vitamin B complex (B 1 tab PO BID 03/04/23 Unknown History Complex-Vitamin B12 tablet) albuterol sulfate 90 mcg/actuation 1 puff inhalation Q6H #8.5 grams 05/13/23 Unknown Rx aerosol inhaler (Ventolin HFA) citalopram 10 mg tablet (Celexa) 10 mg PO DAILY 11/18/23 Unknown History furosemide 20 mg tablet 20 mg PO BID 11/18/23 Unknown History omeprazole 40 mg capsule,delayed 40 mg PO DAILY 11/18/23 Unknown History release trazodone 100 mg tablet 200 mg PO QHS 11/18/23 Unknown History apixaban 5 mg tablet (Eliquis) 5 mg PO Q12H 09/12/24 Unknown History quetiapine 200 mg tablet,extended 200 mg PO BID 09/12/24 Unknown History release 24 hr Allergy/AdvReac Type Severity Reaction Status Date / Time Penicillins Allergy Intermediate Hives Verified 09/12/24 10:32 carbamazepine (From Tegretol) AdvReac Intermediate Nausea Verified 09/12/24 10:32 benztropine AdvReac Unknown Verified 09/12/24 10:32 diazepam (From Valium) AdvReac Other Verified 09/12/24 10:32 Sulfa (Sulfonamide AdvReac Nausea Verified 09/12/24 10:32 Antibiotics) thioridazine AdvReac Nausea Verified 09/12/24 10:32 thioridazine HCl (From AdvReac Other Verified 09/12/24 10:32 Mellaril) Family History Grandmother Cancer stomach Father Cancer lung Sister Breast cancer Surgical History Hx of surgical procedure History of carpal tunnel surgery History of elbow surgery H/O shoulder surgery H/O hand surgery H/O dilation and curettage Hx of cholecystectomy History of tonsillectomy Social History household members: family housing: other details: Mobile home Smoking Status: Heavy Smoker (>10/day) alcohol intake: never substance use type: does not use caffeine: Yes what type of physical activity do you participate in: walking seatbelt use: always do you feel safe at home: Yes ROS ROS Narrative Feeling chilled, cough, shortness of breath. All review of systems were negative except as mentioned above in the history of present illness and the other review of systems. Vital Signs Vital Signs Vital Signs: 09/12/24 10:25 09/12/24 11:04 09/12/24 11:35 Temperature 36.7 C Temperature Source Temporal Pulse Rate 105 H 101 H Respiratory Rate 19 H 15 Blood Pressure 100/65 113/66 Blood Pressure Mean 76 81 Pulse Ox 92 90 Oxygen Delivery Method Room Air Room Air Room Air 09/12/24 13:00 Temperature Temperature Source Pulse Rate 102 H Respiratory Rate 20 H Blood Pressure 136/83 H Blood Pressure Mean 98 Pulse Ox 93 Oxygen Delivery Method Weight Weight: 124 kg Body Mass Index (BMI) 47.6 Physical Exam Const alert and no apparent distress HEENT normocephalic, head/scalp atraumatic and hearing grossly normal bilaterally Mouth: moist mucous membranes abnormal parched Eyes PERRL and EOMs intact bilaterally Neck no lymphadenopathy Neck Narrative: No thyromegaly Resp normal respiratory effort, no retractions, no use of accessory muscles and clear to auscultation bilaterally Cardio regular rate, regular rhythm, S1 normal heart sound and S2 normal heart sound GI normal to inspection, nondistended, normoactive bowel sounds, soft to palpation, non-tender, non-distended and hepatosplenomegaly Extremity normal to inspection and full ROM Skin Skin Narrative: No rashes or lesions Neuro oriented x3, CN's II-XII intact bilaterally, moves all extremities and no focal motor deficits Sensorium / Orientation: awake, alert, oriented to person, oriented to place and oriented to time Speech: speech normal Motor Exam: strength 5/5 throughout Psych Mood & Affect: anxious Results Lab / Micro Data Attestation: I reviewed the patient's lab results. 09/12/24 11:22 09/12/24 11:22 Labs: Laboratory Results - last 24 hr 09/12/24 11:22: WBC 9.0, RBC 4.46, Hgb 14.0, Hct 42.9, MCV 96.2, MCH 31.4, MCHC 32.6, RDW Std Deviation 47.2 H, RDW Coeff of Robert 13.2, Plt Count 231, MPV 10.4, Immature Gran % (Auto) 0.300, Neut % (Auto) 85.1 H, Lymph % (Auto) 5.9 L, Park % (Auto) 8.4, Eos % (Auto) 0.1, Baso % (Auto) 0.2, Absolute Neuts (auto) 7.7, Absolute Lymphs (auto) 0.53 L, Nucleated RBC % 0, PT 16.1 H, INR 1.3, APTT 30.9, Sodium 139, Potassium 3.6, Chloride Direct 103, Carbon Dioxide 24.2, Anion Gap 12, BUN 14, Creatinine 1.4 H, Estim Creat Clear Calc 53.30, Est GFR (MDRD) Non-Af 44 L, BUN/Creatinine Ratio 10.2, Glucose 117 H, Lactic Acid 1.6, Calcium 9.0, Total Bilirubin 0.69, AST 28, ALT 17, Alkaline Phosphatase 78, Troponin T High Sens 23 H, NT pro BNP II 130, Total Protein 6.5, Albumin 3.9, Globulin 2.6, Albumin/Globulin Ratio 1.5 09/12/24 12:30: Urine Color Yellow, Urine Clarity Clear, Urine pH 6.0, Ur Specific [place] 1.010, Urine Protein Negative, Urine Glucose (UA) Normal, Urine Ketones Negative, Urine Occult Blood 50 H, Urine Nitrite Negative, Urine Bilirubin Negative, Urine Urobilinogen Normal, Ur Leukocyte Esterase Negative, Urine RBC 0-5 SEEN, Urine WBC 0 SEEN, Ur Squamous Epith Cells 0 SEEN, Urine Bacteria 0 SEEN, Urine Mucus 0 SEEN 09/12/24 12:58: Delta Troponin T 4, Troponin T Hi Sens 2 Hr 19 H 09/12/24 13:30: Troponin T Hi Sens 4Hr 20 H Micro: Microbiology 09/12/24 11:22 Mucosa - Nose SARS-CoV-2, Influenza & RSV (PCR) - Final SARS-CoV-2 (COVID 19) Imaging Radiology Impression Chest X-Ray 09/12/24 11:01 IMPRESSION: No active cardiopulmonary disease. Reading Location: [facility] 09/12/24 11:40 IMPRESSION: 1. Left basal ganglia area of diminished attenuation concerning for recent area of ischemic infarction. 2. Bilateral maxillary sinus inflammation. Reading Location: [facility] Assessment & Plan Assessment/Plan (1) Stroke: PLAN: Patient has a history of stroke but no prior imaging in our system. CAT scan showed recent basal ganglier infarct. Will start aspirin. Check an MRI of the brain, MRA of the head and neck. NIH is currently 0 and not a candidate for TNK. Additionally check an echo, physical, occupational and speech therapy evaluation. (2) COVID: PLAN: Unclear time of onset as patient is poor historian so we will take today is day 0. Patient received dexamethasone emergency room and will continue for 9 more days. Patient appears dry and her creatinine is elevated though seems lower than her baseline. Will hold off on remdesivir at this time. PLAN: Plan Homeless: New development. Patient just discharged from the psychiatric facility. Case management to assist. Anticipate the patient may require senior living facility when she is medically ready for discharge. Recent psychiatric hospitalization for roughly 20 days in [facility]. Will request records if were able to get those to see what actually was going on. Patient has bipolar disorder. Chronic conditions Obesity class III: Complicates care and recovery. Diabetes mellitus type 2: Sign scale insulin. Check an A1c. Paroxysmal atrial fibrillation: Continue with anticoagulation with apixaban VTE prophylaxis: Not indicated as patient is on apixaban CODE STATUS: Addressed with the patient. Patient should be full code. Disposition: To be determined. When patient is medically ready anticipate patient would likely require senior living facility. Charges/Coding Visit Charges Inpatient E&M: 21037 Init Hosp L3
--- NOTE | 2024-09-12 15:01 | MRI_ITS ---
PROCEDURE: Noncontrast MRA of the neck. REASON FOR EXAM: Stroke. Abnormal head CT. COMPARISON: Noncontrast CT brain 09/12/2024 TECHNIQUE: Axial contiguous axial MRA images of the brain were obtained without IV contrast. Multi planar reformatted images were created and reviewed. FINDINGS: The basilar and distal vertebral arteries are patent. There is persistent origin of the right posterior cerebral artery. The major components of the posterior circulation are grossly patent, although detail is limited. Diminutive caliber of the distal right vertebral artery may be congenital/developmental. The distal internal carotid arteries are patent. The major components of the anterior circulation are patent, without focal aneurysm formation or hemodynamically significant stenosis. MRI/MRA Head ONLY without Contrast IMPRESSION: Diminutive caliber of the distal right vertebral artery may be congenital or de velopmental. Otherwise, negative MRA of the brain. Persistent origin of the right posterior cerebral artery. Reading Location: [facility]
--- NOTE | 2024-09-12 15:01 | MRI_ITS ---
PROCEDURE: Noncontrast MRA of the neck. REASON FOR EXAM: Stroke. Abnormal head CT TECHNIQUE: Axial 2D [id number] noncontrast MRA images of the neck were obtained. Multi planar reformatted images were created and reviewed. COMPARISON: None. FINDINGS: The left vertebral artery is dominant. Both vertebral arteries appear patent to the skull base. The origins of the arch vessels are grossly patent, although evaluation is limited on this study. The examination is suboptimal due to artifact. The common carotid arteries appear patent to the bifurcations. There appears to be less than 50% stenosis of the carotid bulbs and proximal internal carotid arteries. Both internal carotid arteries appear to be patent. MRI/MRA Neck without Contrast IMPRESSION: Suboptimal examination due to artifact. There appears to be less than 50% sten osis of the carotid bulbs and proximal internal carotid arteries, although evaluation of the left carotid bulb and proximal lef t internal carotid artery is less than ideal. Follow-up contrast-enhanced CTA evaluation may be considered for more accurate evaluation of the carotid bulbs and proximal internal carotid arteries. Both vertebral arteries appear to be patent. [facility]
--- NOTE | 2024-09-12 16:02 | ECHOD_ITS ---
Reason For Study Reason For Study: TIA/CVA Procedure This was a 2D Doppler, Color Flow transthoracic echocardiogram. Exam performed portable in patient room. The exam was abbreviated due to the COVID 19 protocol. Left Ventricle Normal LV size. The estimated ejection fraction is 65 %. No evidence for diastolic dysfunction. No regional wall motion abnormalities noted. Right Ventricle Normal RV size. Normal systolic function. Atria The left and right atria are normal. Bubble contrast study is negative for PFO/ASD. No doppler evidence for ASD. Mitral Valve There is no mitral valve stenosis. Trivial mitral valve insufficiency. Tricuspid Valve There is no tricuspid stenosis. Trivial tricuspid valve insufficiency. Unable to estimate RV systolic pressure due to insufficient tricuspid regurgitant envelope. Aortic Valve Trisinus/trileaflet aortic valve. There is no aortic stenosis. No aortic valve insufficiency. Pulmonic Valve There is no pulmonic valvular stenosis. Trivial pulmonic valve insufficiency. Great Vessels Normal sized aortic root. Pericardium/Pleural No pericardial effusion. Medication Performed a rapid injection of agitated mix of 9 cc saline and 1cc air to assess for atrial septal defect. MMode/2D Measurements & Calculations LVIDd: 4.5 cm IVSd: 1.3 cm LAV(MOD-sp4): 33.6 ml LVIDs: 3.0 cm LVPWd: 1.5 cm FS: 33.0 % LVAd ap4: 18.5 cm2 SV(MOD-sp4): 31.2 ml SV(sp4-el): 32.4 ml LVLd ap4: 6.6 cm SI(MOD-sp4): 14.1 ml/m2 EDV(MOD-sp4): 42.6 ml EDV(sp4-el): 43.5 ml LVAs ap4: 8.3 cm2 LVLs ap4: 5.3 cm ESV(MOD-sp4): 11.4 ml ESV(sp4-el): 11.1 ml EF(MOD-sp4): 73.3 % EF(sp4-el): 74.4 % LA A4 area: 13.8 cm2 LA dimension(2D): 4.5 cm RA A4 area: 14.8 cm2 ECHO/Echo Complete Interpretation Summary The estimated ejection fraction is 65 %. Trivial mitral valve insufficiency. Ordering Physician: Wilfredo Denton Referring Physician: JOSE LAZAR Performed By: Munira Saldana RCS
--- NOTE | 2024-09-12 16:02 | MRI_ITS ---
PROCEDURE: Noncontrast MRI of the brain. REASON FOR EXAM: Stroke. TECHNIQUE: Multiplanar, multisequence MRI images of the brain were obtained without IV contrast. COMPARISON: Noncontrast CT of the brain from the same day FINDINGS: Some sequences are suboptimal due to motion artifact. Bones of the calvarium are intact. Extracranial soft tissues show no specific abnormality. Included upper cervical spinal cord unremarkable. There is a partially empty sella. The orbits, sella, and parasellar structures are grossly unremarkable. Mastoid air cells are clear. Minimal partial opacification right maxillary sinus and ethmoid air cells. No paranasal sinus air-fluid levels. No extra-axial fluid collection or midline shift. The yung-white matter differentiation is maintained. The ventricles are normal in caliber and configuration. Basilar cisterns are clear. No areas of restricted diffusion. There is some mild patchy areas of increased T2/FLAIR signal involving the deep and subcortical white matter of the frontal lobes. The cerebellar tonsils are low lying, extending to the level of the foramen magnum. MRI/Brain without Contrast IMPRESSION: No acute intracranial abnormality. No evidence of acute infarction to correspo nd to the area of decreased attenuation in the left basal ganglia on same day noncontrast head CT. This may represent a promi nent perivascular space. Patchy white matter hyperintensities in both cerebral hemispheres as above, whi ch may be on the basis of chronic small-vessel ischemic disease. Mild paranasal sinus disease, as above. Partially empty sella. Reading Location[facility]
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
[2024-09-12] MEDS: Aspirin 325 MG Tablet PO (19:57)
[2024-09-12] MEDS: APIXABAN 5 MG TABLET PO (19:57)
[2024-09-12] MEDS: traZODone 100 MG Tablet 200 MG PO (19:58)
[2024-09-12] MEDS: Atorvastatin Calcium 10 MG Tablet 5 MG PO (19:58)
[2024-09-12] MEDS: QUEtiapine 100 MG Tablet PO (19:58)
[2024-09-12] MEDS: 0.9% Normal Saline (1000mL) 1,000 ML 150 ML IV (19:59)
[2024-09-12] MEDS: 0.9% Saline Lock 10 ML Syringe IV (19:59)
[2024-09-12] MEDS: LORazepam 0.5 MG Tablet PO (20:05)
[2024-09-12 20:34] LABS: Bedside Glucose 141 mg/dL (74-106)
[2024-09-13] VITALS (13 sets, daily range): BP systolic 100–110; BP diastolic 40–49; PULSE 65–100; RESP 16–18; TEMP 36–36.3; O2SAT 84–95; BMI 45.4
[2024-09-13] MEDS: QUEtiapine 100 MG Tablet PO ×4 (06:19→23:19)
[2024-09-13 06:22] LABS: Absolute Lymphocyte Count 0.76 X10^3/uL (0.83-4.51); Absolute Neutrophil Count 6.1 X10^3/uL (2.0-7.7); Basophil# 0.01 X10^3/uL; Basophil% 0.1 % (0-1); Hematocrit 39.3 % (37-47); Hemoglobin 12.9 g/dL (12.0-15.0); Lymphocyte # 0.76 X10^3/ul (0.83-4.51); Mean Corp Hgb Conc 32.8 g/dL (32-36); Mean Corpuscular Hgb 31.7 pg (27.0-32.0); Mean Corpuscular Volume 96.6 fL (81-99); Mean Platelet Vol. 10.6 fl (6.2-12.0); Monocyte# 0.72 X10^3/uL; Monocyte% 9.5 % (0-10); NRBC Flagged by Analyzer 0 % (0-5); Neutrophil # 6.07 X10^3/uL (2.7-7.7); Neutrophil % 79.9 % (47-70); Platelet Count 225 K/mm3 (150-450); RBC Distribution Width CV 13.1 % (11.6-14.6); RBC Distribution Width SD 47.2 fl (35.1-43.9); Red Blood Count 4.07 M/mm3 (4.2-5.4); White Blood Count 7.6 K/mm3 (4.4-11.0)
[2024-09-13 06:40] LABS: Bedside Glucose 128 mg/dL (74-106)
[2024-09-13 07:04] LABS: Anion Gap 10 (5-15); BUN 14 mg/dL (4-19); BUN/Creat Ratio 11.3 RATIO (10-20); Calcium 8.4 mg/dL (7.6-11.0); Carbon Dioxide 21.1 mmol/L (22.0-29.0); Chloride 109 mmol/L (96-108); Cholesterol 94 mg/dL (<=200); Creatinine, Serum 1.3 mg/dL (0.6-1.0); EST Glomerular Filtration Rate 48 (>60); Estimated Creatinine Clearance 55.79 ml/min; Glucose 130 mg/dL (70-99); High Density Lipoprotein 47 mg/dL; Low Density Lipoprotein Calc. 33 mg/dL; Potassium 3.9 mmol/L (3.3-5.1); Sodium Level 140 mmol/L (133-145); Thyroid Stim Hormone (TSH) 0.483 uIU/mL (0.300-4.200); Triglycerides 71 mg/dL; Very Low Density Lipoprotein 14 mg/dL (5-40)
[2024-09-13] MEDS: Albuterol 2.5 MG/3 ML VIAL.NEB. INHALATION ×3 (07:17→20:42)
[2024-09-13] MEDS: Aspirin 81 MG TAB.CHEW PO (08:26)
[2024-09-13] MEDS: dexAMETHasone 4 MG Tablet 6 MG PO (08:26)
[2024-09-13] MEDS: Citalopram 10 MG Tablet PO (08:27)
[2024-09-13] MEDS: APIXABAN 5 MG TABLET PO ×2 (08:27→23:20)
[2024-09-13] MEDS: Pantoprazole Sodium 40 MG Tablet PO (08:27)
[2024-09-13] MEDS: Nystatin Powder 15gm Bottle 1 APPLIC TOPICAL ×2 (11:25→23:20)
[2024-09-13] MEDS: Insulin Lispro 100 UNIT/ML INSULN.PEN SC (11:33)
[2024-09-13 12:07] LABS: Bedside Glucose 195 mg/dL (74-106)
--- NOTE | 2024-09-13 13:00 | CASEMGMT ---
SW was informed patient was interested in going to [facility] at discharge. ANGI asked Hannah to send a referral. Farnaz Jo MSW DIANA
--- NOTE | 2024-09-13 13:16 | CASEMGMT ---
Discharge Planning Referral sent to [facility]. Hannah Whiting DC Planning Asst.
--- NOTE | 2024-09-13 14:13 | NEURO.CONS ---
Assessment and Plan: Neuro Assessment/Plan 64 y/o woman with h/o Afib on AC, recent admission to psych facility for concern for blood clot p/w difficult speaking. In ER, noted to be COVID positive. CT Head - concern for left BG stroke. CTA - shows no LVO but shows lymphadenopathy. MRI brain- no acute stroke. LDL-84. A1c-5.4. NPB-QI-02-65%. Today, she reports feeling better with NIHSS-0. 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 I personally attended this patient and spent a total time of 50 minutes evaluating this patient including clinical assessment, review of chart, medical history imaging, and determining appropriate treatment and workup. HPI Consult Data Date of Consult: 09/13/24 HPI Narrative HPI Narrative: 64 y/o woman with h/o Afib on AC, recent admission to psych facility for concern for blood clot p/w difficult speaking. In ER, noted to be COVID positive. CT Head - concern for left BG stroke. CTA - shows no LVO but shows lymphadenopathy. MRI brain- no acute stroke. LDL-84. A1c-5.4. LII-GO-50-65%. Today, she reports feeling better with NIHSS-0. PFSH Medical History (Updated 09/12/24 @ 15:[address] Wilfredo Denton, DO) History of echocardiogram Wears glasses Anxiety Depression Post-menopausal History of renal disease High cholesterol Back pain TIA (transient ischemic attack) Gastric reflux Smoker Shortness of breath on exertion History of pain when walking History of edema Cardiology follow-up encounter History of heart attack Chest pain History of left heart catheterization (LHC) (~12/30/20) CKD (chronic kidney disease) stage 3, GFR 30-59 ml/min Lung nodule COPD (chronic obstructive pulmonary disease) Paroxysmal atrial fibrillation Elevated liver enzymes Acute respiratory failure with hypoxia Stroke IBS (irritable bowel syndrome) Hyperlipidemia Heart disease Migraines Frequent headaches Gastrointestinal problem Diabetes History of back problems Asthma Arthritis Home Medications ?Medication ?Instructions ?Recorded ?Last Taken ?Type hyoscyamine sulfate 0.375 mg 0.375 mg PO BID 06/22/17 09/08/20 History tablet,extended release,12 hr (Oscimin SR) lovastatin 20 mg tablet 20 mg PO QDAY cholesterol 06/22/17 09/11/24 History ipratropium 0.5 mg-albuterol 3 mg 3 ml inhalation Q4HWA.RT PRN 09/07/21 09/08/24 Rx (2.5 mg base)/3 mL nebulization shortness of breath or wheezing #0 soln mL lorazepam 0.5 mg tablet (Ativan) 0.5 mg PO Q12H PRN Anxiety 09/28/21 09/11/24 History omega-3 fatty acids-fish oil 360 1 cap PO BID Joints 03/04/23 09/11/24 History mg-1,200 mg capsule (Fish Oil) vitamin B complex (B 1 tab PO BID General health 03/04/23 09/11/24 History Complex-Vitamin B12 tablet) albuterol sulfate 90 mcg/actuation 1 puff inhalation Q6H #8.5 grams 05/13/23 Unknown Rx aerosol inhaler (Ventolin HFA) citalopram 10 mg tablet (Celexa) 10 mg PO DAILY depression 11/18/23 09/11/24 History furosemide 20 mg tablet 20 mg PO BID Diuretic 11/18/23 09/11/24 History omeprazole 40 mg capsule,delayed 40 mg PO DAILY Gerd 11/18/23 09/11/24 History release trazodone 100 mg tablet 200 mg PO QHS Sleep 11/18/23 09/11/24 History apixaban 5 mg tablet (Eliquis) 5 mg PO Q12H anticoagulant 09/12/24 09/12/24 History quetiapine 200 mg tablet,extended 200 mg PO BID Bipolar 09/12/24 09/11/24 History release 24 hr Allergy/AdvReac Type Severity Reaction Status Date / Time Penicillins Allergy Intermediate Hives Verified 09/12/24 10:32 carbamazepine (From Tegretol) AdvReac Intermediate Nausea Verified 09/12/24 10:32 benztropine AdvReac Unknown Verified 09/12/24 10:32 diazepam (From Valium) AdvReac Other Verified 09/12/24 10:32 Sulfa (Sulfonamide AdvReac Nausea Verified 09/12/24 10:32 Antibiotics) thioridazine AdvReac Nausea Verified 09/12/24 10:32 thioridazine HCl (From AdvReac Other Verified 09/12/24 10:32 Mellaril) Family History Grandmother Cancer stomach Father Cancer lung Sister Breast cancer Surgical History Hx of surgical procedure History of carpal tunnel surgery History of elbow surgery H/O shoulder surgery H/O hand surgery H/O dilation and curettage Hx of cholecystectomy History of tonsillectomy Social History household members: family housing: other details: Mobile home Smoking Status: Heavy Smoker (>10/day) alcohol intake: never substance use type: does not use caffeine: Yes what type of physical activity do you participate in: walking seatbelt use: always do you feel safe at home: Yes Vital Signs Vital Signs Vital Signs: 09/12/24 15:00 09/12/24 17:00 09/12/24 17:20 Temperature 99.4 F H 100.1 F H Temperature Source Oral Pulse Rate 101 H 101 H Pulse Strength Respiratory Rate 20 H 18 Respiratory Effort Respiratory Depth Respiratory Pattern Blood Pressure 93/56 L 107/53 L Blood Pressure Mean 68 71 Blood Pressure Source Monitor Blood Pressure Position Semi-Fowlers Blood Pressure Location Right Arm Pulse Ox 97 92 Oxygen Delivery Method Nasal Cannula Nasal Cannula Oxygen Flow Rate (L/min) 2 2 09/12/24 19:48 09/12/24 20:00 09/12/24 20:00 Temperature 96.6 F L Temperature Source Temporal Pulse Rate 93 Pulse Strength Normal (2+) Respiratory Rate 18 Respiratory Effort Respiratory Depth Respiratory Pattern Blood Pressure 112/50 L Blood Pressure Mean 70 Blood Pressure Source Monitor Blood Pressure Position Semi-Fowlers Blood Pressure Location Right Arm Pulse Ox 95 95 Oxygen Delivery Method Room Air Room Air Oxygen Flow Rate (L/min) 09/12/24 20:00 09/12/24 23:55 09/13/24 00:00 Temperature 97.2 F L 97.2 F L Temperature Source Temporal Temporal Pulse Rate 88 88 Pulse Strength Respiratory Rate 16 16 Respiratory Effort Normal Non-Labored Respiratory Depth Normal Respiratory Pattern Normal Blood Pressure 100/45 L 100/45 L Blood Pressure Mean 63 63 Blood Pressure Source Monitor Blood Pressure Position Semi-Fowlers Blood Pressure Location Right Arm Pulse Ox 92 92 Oxygen Delivery Method Room Air Room Air Room Air Oxygen Flow Rate (L/min) 09/13/24 04:00 09/13/24 04:00 09/13/24 07:17 Temperature 97.4 F L Temperature Source Oral Pulse Rate 82 65 Pulse Strength Respiratory Rate 18 16 Respiratory Effort Normal Non-Labored Respiratory Depth Normal Respiratory Pattern Normal Blood Pressure 101/49 L Blood Pressure Mean 66 Blood Pressure Source Monitor Blood Pressure Position Semi-Fowlers Blood Pressure Location Left Arm Pulse Ox 94 Oxygen Delivery Method Nasal Cannula Nasal Cannula Oxygen Flow Rate (L/min) 2 2 09/13/24 07:17 09/13/24 07:17 09/13/24 08:12 Temperature Temperature Source Pulse Rate Pulse Strength Respiratory Rate 16 Respiratory Effort Normal Normal Non-Labored Respiratory Depth Normal Normal Respiratory Pattern Normal Normal Blood Pressure Blood Pressure Mean Blood Pressure Source Blood Pressure Position Blood Pressure Location Pulse Ox 94 94 Oxygen Delivery Method Nasal Cannula Nasal Cannula Nasal Cannula Oxygen Flow Rate (L/min) 2 2 2 09/13/24 08:15 09/13/24 08:24 09/13/24 10:00 Temperature 96.8 F L Temperature Source Oral Pulse Rate 84 Pulse Strength Normal (2+) Respiratory Rate 18 Respiratory Effort Respiratory Depth Respiratory Pattern Blood Pressure 104/46 L Blood Pressure Mean 65 Blood Pressure Source Monitor Blood Pressure Position Semi-Fowlers Blood Pressure Location Left Forearm Pulse Ox 84 94 Oxygen Delivery Method Nasal Cannula Oxygen Flow Rate (L/min) 2 2 09/13/24 10:11 09/13/24 13:25 09/13/24 13:25 Temperature Temperature Source Pulse Rate 65 Pulse Strength Respiratory Rate 16 Respiratory Effort Respiratory Depth Respiratory Pattern Blood Pressure Blood Pressure Mean Blood Pressure Source Blood Pressure Position Blood Pressure Location Pulse Ox 94 93 Oxygen Delivery Method Room Air Oxygen Flow Rate (L/min) 2 Weight Weight: 118.3 kg Body Mass Index (BMI) 45.4 EEG Results Procedure Details EEG Procedure Details: PERNELL FISHER is a 64 year old F with a past medical history of , who presents for evaluation of Electroencephalogram on DATE at TIME NIHSS NIHSS Nursing Documentation NIHSS Nursing Documentation: NIHSS: Ischemic Stroke/TIA Start: 09/12/24 16:02 Text: For ICU Patients: NIH sroke scale at Status: Complete presentation and every 2 hours or with change in RN caregiver Freq: [id number] Protocol: Activity Type Activity Date Activity User E-sign Co-sign Detail Recorded Client Recorded Date Recorded By Document 09/12/24 17:30 SHANIKA [id number] 09/12/24 17:32 SHANIKA 09/12/24 17:30 NIH Stroke Scale [NIHSS] A score of 0 is normal or asymptomatic . Total possible score is 42. Inpatient: RN or Physician to activate a stroke alert for onset of new stroke symptoms or with NIHSS increase >/= 3 points. Following change in neurological status, NIHSS will be performed per physician order or more frequently PRN. -1a. Level of Consciousness Alert; keenly responsive -1b. LOC Questions Answers BOTH questions correctly. -1c. LOC Commands Performs both tasks correctly . -2. Best Gaze Normal -3. Visual No visual loss -4. Facial Palsy Normal symmetrical movements -5a. Left Arm No drift; arm holds 90 (or 45 ) degrees for full 10 seconds -5b. Right Arm No drift; arm holds 90 (or 45 ) degrees for full 10 seconds -6a. Left Leg No drift; leg holds 30-degree position for full 5 seconds -6b. Right Leg No drift; leg holds 30-degree position for full 5 seconds -7. Limb Ataxia Absent -8. Sensory Normal; no sensory loss -9. Best Language No aphasia; normal -10. Dysarthria Normal -11. Extinction and Inattention No abnormality -Total 0 Query Text:A score of 0 is normal or asymptomatic. Total possible score is 42 . ED: Notify Physician for NIHSS increase by > / = 3 points. Inpatient: RN or Physician to activate a stroke alert for NIHSS increase of > / = 3 points. Coma Scale [Assess] -Eye Opening Spontaneous -Motor Obeys Commands -Verbal Oriented [Total] -Coma Scale Total 15 NIHSS: Ischemic Stroke/TIA Start: 09/12/24 16:02 Text: For PCU Patients: NIH and Neuro Check every 4 Status: Complete hours, PRN and with change in RN caregiver. Freq: [id number] Protocol: Activity Type Activity Date Activity User E-sign Co-sign Detail Recorded Client Recorded Date Recorded By Document 09/13/24 04:00 DOREEN [id number] 09/13/24 04:05 DOREEN 09/13/24 04:00 NIH Stroke Scale [NIHSS] A score of 0 is normal or asymptomatic . Total possible score is 42. Inpatient: RN or Physician to activate a stroke alert for onset of new stroke symptoms or with NIHSS increase >/= 3 points. Following change in neurological status, NIHSS will be performed per physician order or more frequently PRN. -1a. Level of Consciousness Alert; keenly responsive -1b. LOC Questions Answers BOTH questions correctly. -1c. LOC Commands Performs both tasks correctly . -2. Best Gaze Normal -3. Visual No visual loss -4. Facial Palsy Normal symmetrical movements -5a. Left Arm No drift; arm holds 90 (or 45 ) degrees for full 10 seconds -5b. Right Arm No drift; arm holds 90 (or 45 ) degrees for full 10 seconds -6a. Left Leg No drift; leg holds 30-degree position for full 5 seconds -6b. Right Leg No drift; leg holds 30-degree position for full 5 seconds -7. Limb Ataxia Absent -8. Sensory Normal; no sensory loss -9. Best Language No aphasia; normal -10. Dysarthria Normal -11. Extinction and Inattention No abnormality -Total 0 Query Text:A score of 0 is normal or asymptomatic. Total possible score is 42 . ED: Notify Physician for NIHSS increase by > / = 3 points. Inpatient: RN or Physician to activate a stroke alert for NIHSS increase of > / = 3 points. Coma Scale [Assess] -Eye Opening Spontaneous -Motor Obeys Commands -Verbal Oriented [Total] -Coma Scale Total 15 NIHSS 1a. Level of Consciousness: Alert; keenly responsive 1b. LOC Questions: Answers BOTH questions correctly. 1c. LOC Commands: Performs both tasks correctly. 2. Best Gaze: Normal 3. Visual: No visual loss 4. Facial Palsy: Normal symmetrical movements 5a. Left Arm: No drift; arm holds 90 (or 45) degrees for full 10 seconds 5b. Right Arm: No drift; arm holds 90 (or 45) degrees for full 10 seconds 6a. Left Leg: No drift; leg holds 30-degree position for full 5 seconds 6b. Right Leg: No drift; leg holds 30-degree position for full 5 seconds 7. Limb Ataxia: Absent 8. Sensory: Normal; no sensory loss 9. Best Language: No aphasia; normal 10. Dysarthria: Normal 11. Extinction and Inattention: No abnormality Total: 0 Physical Exam Narrative General: The patient appears nutritionally appropriate, well-groomed, and appears comfortable in no acute distress. Mental Status:? The patient?s mental status was normal including orientation.? Language was intact.? Cranial nerves:? Visual lloyd full, and extra-ocular motion was intact. Symmetric face. Motor: Normal strength in all extremities. Sensation: Intact to touch in all extremities.? Coordination:? Bilateral finger to nose was normal.? There was no dysmetria. Gait:? deferred. Lab / Micro Data 09/13/24 05:54 09/14/24 06:00 Labs: Laboratory Results - last 24 hr 09/12/24 19:55: POC Glucose 141 H 09/13/24 05:54: WBC 7.6, RBC 4.07 L, Hgb 12.9, Hct 39.3, MCV 96.6, MCH 31.7, MCHC 32.8, RDW Std Deviation 47.2 H, RDW Coeff of Robert 13.1, Plt Count 225, MPV 10.6, Immature Gran % (Auto) 0.500, Neut % (Auto) 79.9 H, Lymph % (Auto) 10.0 L, [place] % (Auto) 9.5, Eos % (Auto) 0.0, Baso % (Auto) 0.1, Absolute Neuts (auto) 6.1, Absolute Lymphs (auto) 0.76 L, Nucleated RBC % 0, Sodium 140, Potassium 3.9, Chloride Direct 109 H, Carbon Dioxide 21.1 L, Anion Gap 10, BUN 14, Creatinine 1.3 H, Estim Creat Clear Calc 55.79, Est GFR (MDRD) Non-Af 48 L, BUN/Creatinine Ratio 11.3, Glucose 130 H, Hemoglobin A1c 6.0, Calcium 8.4, Triglycerides 71, Cholesterol 94, VLDL Cholesterol 14, HDL Cholesterol 47, Cholesterol/HDL Ratio 2.00, TSH 0.483 09/13/24 06:18: POC Glucose 128 H 09/13/24 11:28: POC Glucose 195 H Micro: Microbiology 09/12/24 11:22 Mucosa - Nose SARS-CoV-2, Influenza & RSV (PCR) - Final SARS-CoV-2 (COVID 19) Imaging Radiology Impression Head MRA 09/12/24 15:01 IMPRESSION: Diminutive caliber of the distal right vertebral artery may be congenital or developmental. Otherwise, negative MRA of the brain. Persistent origin of the right posterior cerebral artery. Reading [facility] Neck MRA 09/12/24 15:01 IMPRESSION: Suboptimal examination due to artifact. There appears to be less than 50% stenosis of the carotid bulbs and proximal internal carotid arteries, although evaluation of the left carotid bulb and proximal left internal carotid artery is less than ideal. Follow-up contrast-enhanced CTA evaluation may be considered for more accurate evaluation of the carotid bulbs and proximal internal carotid arteries. Both vertebral arteries appear to be patent. Reading Location[facility] Brain MRI 09/12/24 16:02 IMPRESSION: No acute intracranial abnormality. No evidence of acute infarction to correspond to the area of decreased attenuation in the left basal ganglia on same day noncontrast head CT. This may represent a prominent perivascular space. Patchy white matter hyperintensities in both cerebral hemispheres as above, which may be on the basis of chronic small-vessel ischemic disease. Mild paranasal sinus disease, as above. Partially empty sella. Reading [facility] Active Medications Active Medications Active Medications: Current Medications Generic Name Dose Route Start Last Admin Trade Name Freq PRN Reason Stop Dose Admin Acetaminophen 650 mg 09/12/24 16:02 Acetaminophen 325 Mg Tablet PO Q6H PRN PRN Pain 1-10 Or Fever >100.7 Albuterol Sulfate 2.5 mg 09/12/24 16:30 09/13/24 13:24 Albuterol 2.5 Mg/3 Ml Vial.Neb. INHALATION 2.5 mg Q6H.RT MARIA DEL CARMEN Administration Albuterol/Ipratropium 3 ml 09/12/24 16:02 Ipratropium/Albuterol Sulfate 3 Ml Ampul.Neb INHALATION Q4HWA.RT PRN shortness of breath or wheezing Apixaban 5 mg 09/12/24 22:00 09/13/24 08:27 Apixaban 5 Mg Tablet PO 5 mg Q12 MARIA DEL CARMEN Administration Aspirin 81 mg 09/13/24 08:00 09/13/24 08:26 Aspirin 81 Mg Tab.Chew PO 81 mg BREAKFAST MARIA DEL CARMEN Administration Atorvastatin Calcium 5 mg 09/12/24 22:00 09/12/24 19:58 Atorvastatin Calcium 10 Mg Tablet PO 5 mg QHS MARIA DEL CARMEN Administration Citalopram Hydrobromide 10 mg 09/13/24 10:00 09/13/24 08:27 Citalopram 10 Mg Tablet PO 10 mg DAILY MARIA DEL CARMEN Administration Dexamethasone 6 mg 09/13/24 08:00 09/13/24 08:26 Dexamethasone 4 Mg Tablet PO 09/22/24 08:01 6 mg DAILY@0800 MARIA DEL CARMEN Administration Glucagon 1 mg 09/12/24 16:02 Glucagon 1 Mg/Ml Syringe IM X1 PRN Hypoglycemia Protocol Hydralazine HCl 5 mg 09/12/24 16:02 Hydralazine 20 Mg/Ml Vial IV 09/13/24 16:02 Q30M PRN maintain BP parameters with HR <60 Dextrose 250 mls @ 0 mls/hr 09/12/24 16:02 Dextrose 10%-Water IV .Q0M PRN HYPOGLYCEMIA Protocol As Directed Sodium Chloride 100 mls @ 15 mls/hr 09/12/24 16:07 IV .Q6H40M PRN SALINE FLUSH Insulin Human Lispro 0 unit 09/12/24 16:02 09/13/24 11:33 Insulin Lispro 100 Unit/Ml Insuln.Pen SC 2 u ACHS MARIA DEL CARMEN Administration Protocol Labetalol HCl 10 - 20 mg 09/12/24 16:02 Labetalol 20mg/4ml Syringe IV 09/13/24 16:02 Q10M PRN PRN maintain BP parameters with HR >/=60 Lorazepam 0.5 mg 09/12/24 16:02 09/12/24 20:05 Lorazepam 0.5 Mg Tablet PO 0.5 mg Q12H PRN Administration Anxiety Nystatin 1 applic 09/13/24 10:00 09/13/24 11:25 Nystatin Powder 15gm Bottle TOPICAL 1 applic BID MARIA DEL CARMEN Administration Protocol Ondansetron HCl 4 mg 09/12/24 16:02 Ondansetron 4 Mg/2 Ml Vial IV Q8H PRN PRN NAUSEA/VOMITING Pantoprazole Sodium 40 mg 09/13/24 10:00 09/13/24 08:27 Pantoprazole Sodium 40 Mg Tablet PO 40 mg DAILY MARIA DEL CARMEN Administration Quetiapine Fumarate 100 mg 09/12/24 18:00 09/13/24 11:25 Quetiapine 100 Mg Tablet PO 100 mg Q6 MARIA DEL CARMEN Administration Sodium Chloride 10 - 40 ml 09/12/24 16:07 09/12/24 19:59 0.9% Saline Lock 10 Ml Syringe IV 10 ml UD PRN Administration SALINE FLUSH Trazodone HCl 200 mg 09/12/24 22:00 09/12/24 19:58 Trazodone 100 Mg Tablet PO 200 mg QHS MARIA DEL CARMEN Administration
--- NOTE | 2024-09-13 15:47 | CASEMGMT ---
[facility] could [facility] patient, but not until September 22 due to her Covid diagnosis. SW will take patient a SNF list and see if she would be willing to go to another SNF that could take her sooner than September 22. Farnaz Jo METAL WEATHER STRIPPER DIANA
--- NOTE | 2024-09-13 16:12 | CASEMGMT ---
Discharge Planning A list of?SNF providers including quality and resource use data and consistent with the patient's preferred geographic region, medical needs, and insurance network was created in [facility] Guide.? This list was provided to the SW. Hannah Whiting Discharge Planning Asst.
--- NOTE | 2024-09-13 16:46 | CASEMGMT ---
SW met with patient. Introduced self and role at [facility]. SW let patient know that [facility] could take her, but because she has Covid she wouldn't be able to go until September 22. ANGI told patient she is ready for discharge so she would need to review the fpc list and choose 3 or 4 other facilities. SW will then take care of contacting the facilities. SW asked patient if she has family in the area and she said she has a brother in [place]. His name is Jakob Rico. Patient said she needs to talk with him as she is worried about her sister who is still in [place] with her niece. SW told patient SW can try and find some information for her, but cannot promise. Patient said she might be able to go stay with him if she can talk with him. SW asked patient to review the list and SW will check back with her tomorrow. Farnaz ORTIZ
--- NOTE | 2024-09-13 17:18 | PN.HOSP_ITS ---
Subjective Subjective Doing well, no issues overnight. NIH is 0 Objective Data Objective Data Vital Signs: Vital Signs Temp Pulse Resp BP Pulse Ox O2 Del Method O2 Flow Rate 97.2 F L 71 16 104/44 L 94 Room Air 2 09/13/24 17:04 09/13/24 17:04 09/13/24 17:04 09/13/24 17:04 09/13/24 17:04 09/13/24 17:04 09/13/24 10:11 Oxygen Flow Rate (L/min) 2 Oxygen Delivery Method Room Air Weight: 260 lb 12.909 oz Body Mass Index (BMI) 45.4 Intake & Output: Intake and Output for Last 24 Hours 09/12/24 09/13/24 09/14/24 03:59 03:59 03:59 Intake Total 2220 / 2220 Output Total 1850 / 1850 700 / 700 Balance 370 / 370 -700 / -700 Lab / Micro Data 09/13/24 05:54 09/13/24 05:54 Labs: Laboratory Results - last 24 hr 09/12/24 19:55: POC Glucose 141 H 09/13/24 05:54: WBC 7.6, RBC 4.07 L, Hgb 12.9, Hct 39.3, MCV 96.6, MCH 31.7, MCHC 32.8, RDW Std Deviation 47.2 H, RDW Coeff of Robert 13.1, Plt Count 225, MPV 10.6, Immature Gran % (Auto) 0.500, Neut % (Auto) 79.9 H, Lymph % (Auto) 10.0 L, [place] % (Auto) 9.5, Eos % (Auto) 0.0, Baso % (Auto) 0.1, Absolute Neuts (auto) 6.1, Absolute Lymphs (auto) 0.76 L, Nucleated RBC % 0, Sodium 140, Potassium 3.9, Chloride Direct 109 H, Carbon Dioxide 21.1 L, Anion Gap 10, BUN 14, C reatinine 1.3 H, Estim Creat Clear Calc 55.79, Est GFR (MDRD) Non-Af 48 L, BUN/Creatinine Ratio 11.3, Glucose 130 H, Hemoglobin A1c 6.0, Calcium 8.4, Triglycerides 71, Cholesterol 94, VLDL Cholesterol 14, HDL Cholesterol 47, Cholesterol/HDL Ratio 2.00, TSH 0.483 09/13/24 06:18: POC Glucose 128 H 09/13/24 11:28: POC Glucose 195 H Micro: Microbiology 09/12/24 11:22 Mucosa - Nose SARS-CoV-2, Influenza & RSV (PCR) - Final SARS-CoV-2 (COVID 19) Radiography Diagnostic Testing: Radiology Impression Head MRA 09/12/24 15:01 IMPRESSION: Diminutive caliber of the distal right vertebral artery may be congenital or developmental. Otherwise, negative MRA of the brain. Persistent origin of the right posterior cerebral artery. Reading [facility] Neck MRA 09/12/24 15:01 IMPRESSION: Suboptimal examination due to artifact. There appears to be less than 50% stenosis of the carotid bulbs and proximal internal carotid arteries, although evaluation of the left carotid bulb and proximal left internal carotid artery is less than ideal. Follow-up contrast-enhanced CTA evaluation may be considered for more accurate evaluation of the carotid bulbs and proximal internal carotid arteries. Both vertebral arteries appear to be patent. Reading Location[facility] Brain MRI 09/12/24 16:02 IMPRESSION: No acute intracranial abnormality. No evidence of acute infarction to correspond to the area of decreased attenuation in the left basal ganglia on same day noncontrast head CT. This may represent a prominent perivascular space. Patchy white matter hyperintensities in both cerebral hemispheres as above, which may be on the basis of chronic small-vessel ischemic disease. Mild paranasal sinus disease, as above. Partially empty sella. Reading Location[facility] Echocardiogram 09/12/24 16:02 Interpretation Summary The estimated ejection fraction is 65 %. Trivial mitral valve insufficiency. Ordering Physician: Wilfredo Denton Referring Physician: JOSE LAZAR Performed By: Munira Saldana RCS Physical Exam Narrative General: Alert, Oriented x3, Cooperative, No apparent distress HEENT: Atraumatic, PERRLA, EOMI, Normocephalic Oral: Moist Mucosa Neck: Supple, No JVD Lungs: Diminished, Normal air movement, No rhonchi, No wheeze, No rales Cardiovascular: Regular rate, Regular Rhythm, Normal S1, Normal S2, No murmurs Abdomen: Soft, Non Tender, Non-Distended, No Hepato-splenomegaly Extremities: No edema, Capillary Refill Less than 3 Seconds Skin: No rashes, No breakdown Musculoskeletal: No Tenderness to Palpation of Joints or Extremities Neurological: No focal neurological deficits, Motor Exam 5/5 strength throughout, Sensory exam intact to light touch and pain Psych/Mental Status: Flat Assessment & Plan Assessment/Plan (1) Stroke: (2) COVID: PLAN: Plan 1. TIA ? MRI is negative ? Echo is unremarkable ? Continue with Lipitor and Eliquis as well as aspirin ? Appreciate neurology's assistance ? She has no deficits currently 2. COVID ? Does not appear to be hypoxic at the moment ? She was 89% on room air with ambulation ? Continue with Decadron ? Given her homelessness attempting placement however they are hesitant secondary to her COVID diagnosis 3. Essential HTN/HLD/paroxysmal A-fib ? Continue with Eliquis ? Continue with her home blood pressure medications ? Will monitor make adjustments as necessary ? Can restart Lasix tomorrow as her kidney function is improving 4. GERD ? Stable ? Continue with PPI Homeless: New development. Patient just discharged from the psychiatric facility. Case management to assist. Anticipate the patient may require [facility] facility when she is medically ready for discharge. Recent psychiatric hospitalization for roughly 20 days in [facility]. Continue with Seroquel and Ativan DVT: Eliquis Charges/Coding Visit Charges Inpatient E&M: 37051 Subs Hosp L2
[2024-09-13 17:27] LABS: Bedside Glucose 148 mg/dL (74-106)
[2024-09-13] MEDS: traZODone 100 MG Tablet 200 MG PO (23:19)
[2024-09-13] MEDS: Atorvastatin Calcium 10 MG Tablet 5 MG PO (23:19)
[2024-09-13] MEDS: LORazepam 0.5 MG Tablet PO (23:29)
[2024-09-13 23:51] LABS: Bedside Glucose 129 mg/dL (74-106)
[2024-09-14] VITALS (10 sets, daily range): BP systolic 103–131; BP diastolic 44–52; PULSE 65–83; RESP 16–20; TEMP 35.6–36.2; O2SAT 93–97; BMI 45.4
[2024-09-14] MEDS: QUEtiapine 100 MG Tablet PO ×4 (06:06→23:08)
[2024-09-14 06:52] LABS: Bedside Glucose 130 mg/dL (74-106)
[2024-09-14 07:07] LABS: Anion Gap 10 (5-15); BUN 19 mg/dL (4-19); BUN/Creat Ratio 15.8 RATIO (10-20); Calcium 8.7 mg/dL (7.6-11.0); Carbon Dioxide 21.7 mmol/L (22.0-29.0); Chloride 108 mmol/L (96-108); EST Glomerular Filtration Rate 51 (>60); Estimated Creatinine Clearance 60.44 ml/min; Glucose 132 mg/dL (70-99); Potassium 4.1 mmol/L (3.3-5.1); Sodium Level 140 mmol/L (133-145)
[2024-09-14] MEDS: Albuterol 2.5 MG/3 ML VIAL.NEB. INHALATION ×3 (07:40→20:29)
[2024-09-14] MEDS: Aspirin 81 MG TAB.CHEW PO (08:04)
[2024-09-14] MEDS: dexAMETHasone 4 MG Tablet 6 MG PO (08:04)
[2024-09-14] MEDS: Pantoprazole Sodium 40 MG Tablet PO (09:42)
[2024-09-14] MEDS: Citalopram 10 MG Tablet PO (09:42)
[2024-09-14] MEDS: APIXABAN 5 MG TABLET PO ×2 (09:42→23:04)
[2024-09-14] MEDS: Nystatin Powder 15gm Bottle 1 APPLIC TOPICAL ×2 (09:43→22:58)
--- NOTE | 2024-09-14 09:47 | CASEMGMT ---
SW met with patient to see if she has chosen any other facilities. Patient said she would like [facility]. SW asked patient for more choices and patient said that is the only place she is willing to go to. SW told patient she really needs to look at the list for other options and in the meantime SW will have a referral sent to [facility]. SW asked Hannah to please send a referral to [facility]. Plan: SNF pending accepting facility. Farnaz ORTIZ
--- NOTE | 2024-09-14 09:54 | CASEMGMT ---
Addendum entered by Hannah Whiting 09/14/24 13:44: CC declined referral. SW updated. Hannah Whiting DC Planning Asst Original Note: Discharge Planning Referral sent and call placed to Pippa @ [facility]. Hannah Whiting DC Planning Asst.
[2024-09-14] MEDS: Insulin Lispro 100 UNIT/ML INSULN.PEN SC ×2 (11:40→17:00)
[2024-09-14 12:07] LABS: Bedside Glucose 210 mg/dL (74-106)
--- NOTE | 2024-09-14 12:40 | CASEMGMT ---
ANGI called [facility] in [place] to see if they would be able to accept someone that has Covid. Unfortunately they would not be able to. ANGI called [facility] and spoke with Elsie Barajas. Elsie suggested patient go to [facility] and Tuesday or Tuesday a mental health agency could follow up with patient there to get her set up with services and possible housing or temporary housing. [facility] may also have openings. However, patient has Covid so these agencies are not going to be able to take patient. ANGI did call [facility] and they do not have any availability for a female. ANGI will wait to see if [facility] is willing to take patient. Farnaz Jo ENGRAVED ROLLER INSPECTOR DIANA
--- NOTE | 2024-09-14 13:53 | CASEMGMT ---
[facility] declined patient. SW met with patient letting her know. Patient's next choices were [facility] and [facility]. SW asked Hannah to please send referrals out to both facilities. Farnaz ORTIZ
--- NOTE | 2024-09-14 14:09 | CHAPLAIN ---
Type of Pastoral Visit ___ Initial Visit ___ Follow-up Visit ___ On-call Visit ___ General Patient Visit ___ Spiritual Assessment ___ Family Conference ___ Bereavement ___ Rapid Response ___ Code Blue ___ Other (describe below) Pastoral Care Referral From ___ Patient ___ Family ___ Nurse ___ Physician ___ Pressed Or Blown Glass Worker ___ Journeyman Pipefitter ___ Other (describe below) Sacrament/Intervention ___ Active listening ___ Anointing ___ Yarsani ___ Bereavement ___ Communion ___ Kendy exploration ___ ___ Life review ___ Prayer ___ Reconciliation ___ Sacrament of Sick ___ Supportive presence ___ Wedding ___ Other (describe below) Pastoral Comments phone call made into isolation room and the phone goes to voicemail stating that the patient is unavailable at this time
--- NOTE | 2024-09-14 14:11 | CASEMGMT ---
ANGI provided patient with information on housing assistance, shelters, food assistance, and transportation assistance. Patient said she will call [facility] about their program. Farnaz ORTIZ
--- NOTE | 2024-09-14 14:37 | CASEMGMT ---
Discharge Planning Referral sent to [facility] and [facility]. Hannah Whiting DC Planning Asst.
--- NOTE | 2024-09-14 15:46 | PN.HOSP_ITS ---
Subjective Subjective Doing well, no issues overnight. Maintaining her oxygen saturations on room air Objective Data Objective Data Vital Signs: Vital Signs Temp Pulse Resp BP Pulse Ox O2 Del Method O2 Flow Rate 96.4 F L 83 16 108/51 L 93 Room Air 2 09/14/24 15:20 09/14/24 15:20 09/14/24 15:20 09/14/24 15:20 09/14/24 15:20 09/14/24 15:20 09/13/24 10:11 Oxygen Flow Rate (L/min) 2 Oxygen Delivery Method Room Air Weight: 260 lb 12.909 oz Body Mass Index (BMI) 45.4 Intake & Output: Intake and Output for Last 24 Hours 09/13/24 09/14/24 09/15/24 03:59 03:59 03:59 Intake Total 2220 / 2220 240 / 240 150 / 150 Output Total 1850 / 1850 700 / 700 450 / 450 Balance 370 / 370 -460 / -460 -300 / -300 Lab / Micro Data 09/13/24 05:54 09/14/24 06:00 Labs: Laboratory Results - last 24 hr 09/13/24 17:01: POC Glucose 148 H 09/13/24 23:13: POC Glucose 129 H 09/14/24 06:00: Sodium 140, Potassium 4.1, Chloride Direct 108, Carbon Dioxide 21.7 L, Anion Gap 10, BUN 19, Creatinine 1.20, Estim Creat Clear Calc 60.44, Est GFR (MDRD) Non-Af 51 L, BUN/Creatinine Ratio 15.8, Glucose 132 H, Calcium 8.7 09/14/24 06:04: POC Glucose 130 H 09/14/24 11:39: POC Glucose 210 H Micro: Microbiology 09/12/24 12:30 Urine, Catheterized Urine Culture - Final Culture exhibits no growth. 09/12/24 14:25 Blood Culture (Wb) - Anticubital Left Blood Culture - Preliminary No growth in 48 hours. 09/12/24 12:00 Blood Culture (Wb) - Right Hand Blood Culture - Preliminary No growth in 48 hours. 09/12/24 11:22 Mucosa - Nose SARS-CoV-2, Influenza & RSV (PCR) - Final SARS-CoV-2 (COVID 19) Social Homelessness:: Unsheltered Physical Exam Narrative General: Alert, Oriented x3, Cooperative, No apparent distress HEENT: Atraumatic, PERRLA, EOMI, Normocephalic Oral: Moist Mucosa Neck: Supple, No JVD Lungs: Diminished, Normal air movement, No rhonchi, No wheeze, No rales Cardiovascular: Regular rate, Regular Rhythm, Normal S1, Normal S2, No murmurs Abdomen: Soft, Non Tender, Non-Distended, No Hepato-splenomegaly Extremities: No edema, Capillary Refill Less than 3 Seconds Skin: No rashes, No breakdown Musculoskeletal: No Tenderness to Palpation of Joints or Extremities Neurological: No focal neurological deficits, Motor Exam 5/5 strength throughout, Sensory exam intact to light touch and pain Psych/Mental Status: Normal affect, appropriate Assessment & Plan Assessment/Plan (1) Stroke: (2) COVID: PLAN: Plan 1. TIA ? MRI is negative ? Echo is unremarkable ? Continue with Lipitor and Eliquis as well as aspirin ? Appreciate neurology's assistance ? She has no deficits currently ? PT/OT 2. COVID ? Does not appear to be hypoxic at the moment ? Continue with Decadron ? Given her homelessness attempting placement however they are hesitant secondary to her COVID diagnosis 3. Essential HTN/HLD/paroxysmal A-fib ? Continue with Eliquis ? Continue with her home blood pressure medications ? Will monitor make adjustments as necessary ? Can restart Lasix tomorrow as her kidney function is improving 4. GERD ? Stable ? Continue with PPI Homeless: New development. Patient just discharged from the psychiatric facility. Case management to assist. Anticipate the [place] [facility] when she is medically ready for discharge. Recent psychiatric hospitalization for roughly [address] [facility]. Continue with Seroquel and Ativan DVT: Eliquis Charges/Coding Visit Charges Inpatient E&M: 21740 Subs Hosp L2
[2024-09-14 17:19] LABS: Bedside Glucose 185 mg/dL (74-106)
[2024-09-14] MEDS: BENZOCAINE/MENTHOL 1 LOZENGE MUCOUS MEM (18:09)
[2024-09-14] MEDS: Furosemide 20 MG Tablet PO (22:59)
[2024-09-14] MEDS: Atorvastatin Calcium 10 MG Tablet 5 MG PO (22:59)
[2024-09-14] MEDS: traZODone 100 MG Tablet 200 MG PO (23:05)
[2024-09-14] MEDS: LORazepam 0.5 MG Tablet PO (23:05)
[2024-09-14] MEDS: 0.9% Saline Lock 10 ML Syringe IV (23:28)
[2024-09-15] VITALS (8 sets, daily range): BP systolic 105–119; BP diastolic 49–58; PULSE 65–86; RESP 16–22; TEMP 35.8–36.6; O2SAT 92–94; BMI 45.4
[2024-09-15] LABS: Bedside Glucose 145 mg/dL (74-106)
[2024-09-15] MEDS: QUEtiapine 100 MG Tablet PO ×3 (06:56→17:13)
[2024-09-15 07:19] LABS: Bedside Glucose 117 mg/dL (74-106)
[2024-09-15] MEDS: Albuterol 2.5 MG/3 ML VIAL.NEB. INHALATION ×2 (08:15→14:08)
--- NOTE | 2024-09-15 09:21 | PN.HOSP_ITS ---
Subjective Subjective Doing well, no issues overnight. She is feeling a little bit bloated and would like a stool softener Objective Data Objective Data Vital Signs: Vital Signs Temp Pulse Resp BP Pulse Ox O2 Del Method O2 Flow Rate 97.1 F L 86 18 119/49 L 94 Room Air 3 09/15/24 04:25 09/15/24 08:15 09/15/24 08:15 09/15/24 04:25 09/15/24 08:15 09/15/24 08:15 09/14/24 20:30 Oxygen Flow Rate (L/min) 3 Oxygen Delivery Method Room Air Weight: 260 lb 12.909 oz Body Mass Index (BMI) 45.4 Intake & Output: Intake and Output for Last 24 Hours 09/14/24 09/15/24 09/16/24 03:59 03:59 03:59 Intake Total 240 / 240 150 / 150 225 / 225 Output Total 700 / 700 1250 / 1250 Balance -460 / -460 -1100 / -1100 225 / 225 Lab / Micro Data 09/13/24 05:54 09/14/24 06:00 Labs: Laboratory Results - last 24 hr 09/14/24 11:39: POC Glucose 210 H 09/14/24 16:59: POC Glucose 185 H 09/14/24 22:53: POC Glucose 145 H 09/15/24 06:54: POC Glucose 117 H Micro: Microbiology 09/12/24 12:30 Urine, Catheterized Urine Culture - Final Culture exhibits no growth. 09/12/24 14:25 Blood Culture (Wb) - Anticubital Left Blood Culture - Preliminary No growth in 48 hours. 09/12/24 12:00 Blood Culture (Wb) - Right Hand Blood Culture - Preliminary No growth in 48 hours. 09/12/24 11:22 Mucosa - Nose SARS-CoV-2, Influenza & RSV (PCR) - Final SARS-CoV-2 (COVID 19) Social Homelessness:: Unsheltered Physical Exam Narrative General: Alert, Oriented x3, Cooperative, No apparent distress HEENT: Atraumatic, PERRLA, EOMI, Normocephalic Oral: Moist Mucosa Neck: Supple, No JVD Lungs: Diminished, Normal air movement, No rhonchi, No wheeze, No rales Cardiovascular: Regular rate, Regular Rhythm, Normal S1, Normal S2, No murmurs Abdomen: Soft, Non Tender, Non-Distended, No Hepato-splenomegaly Extremities: No edema, Capillary Refill Less than 3 Seconds Skin: No rashes, No breakdown Musculoskeletal: No Tenderness to Palpation of Joints or Extremities Neurological: No focal neurological deficits, Motor Exam 5/5 strength throughout, Sensory exam intact to light touch and pain Psych/Mental Status: Normal affect, appropriate Assessment & Plan Assessment/Plan (1) Stroke: (2) COVID: PLAN: Plan 1. TIA ? MRI is negative ? Echo is unremarkable ? Continue with Lipitor and Eliquis as well as aspirin ? Appreciate neurology's assistance ? She has no deficits currently ? PT/OT 2. COVID ? Does not appear to be hypoxic at the moment ? Continue with Decadron ? Given her homelessness attempting placement however they are hesitant secondary to her COVID diagnosis 3. Essential HTN/HLD/paroxysmal A-fib ? Continue with Eliquis ? Continue with her home blood pressure medications ? Will monitor make adjustments as necessary ? Can restart Lasix tomorrow as her kidney function is improving 4. GERD ? Stable ? Continue with PPI Homeless: New development. Patient just discharged from the psychiatric facility. Case management to assist. Anticipate the patient may require [facility] facility when she is medically ready for discharge. Recent psychiatric hospitalization for roughly 20 days in [facility]. Continue with Seroquel and Ativan DVT: Eliquis Charges/Coding Visit Charges Inpatient E&M: 65827 Subs Hosp L2
[2024-09-15] MEDS: Aspirin 81 MG TAB.CHEW PO (11:42)
[2024-09-15] MEDS: Nystatin Powder 15gm Bottle 1 APPLIC TOPICAL ×2 (11:43→22:45)
[2024-09-15] MEDS: APIXABAN 5 MG TABLET PO ×2 (11:43→22:45)
[2024-09-15] MEDS: Furosemide 20 MG Tablet PO ×2 (11:43→22:45)
[2024-09-15] MEDS: dexAMETHasone 4 MG Tablet 6 MG PO (11:43)
[2024-09-15] MEDS: Pantoprazole Sodium 40 MG Tablet PO (11:43)
[2024-09-15] MEDS: Citalopram 10 MG Tablet PO (11:43)
[2024-09-15] MEDS: Polyethylene Glycol 3350 17 GM PACKET PO ×2 (11:47→22:45)
[2024-09-15 12:18] LABS: Bedside Glucose 118 mg/dL (74-106)
--- NOTE | 2024-09-15 12:31 | CASEMGMT ---
Social Work [facility] and [facility] are unable to accept pt. SW met with pt and assisted in reviewing SNF list for additional choices. Pt next preferences are [facility] and [facility]. Referral sent to these two facilities. SW will await determination of acceptance. BILL Siegel
[2024-09-15 17:45] LABS: Bedside Glucose 141 mg/dL (74-106)
[2024-09-15 22:08] LABS: Bedside Glucose 143 mg/dL (74-106)
[2024-09-15] MEDS: traZODone 100 MG Tablet 200 MG PO (22:44)
[2024-09-15] MEDS: Atorvastatin Calcium 10 MG Tablet 5 MG PO (22:45)
[2024-09-16] VITALS (7 sets, daily range): BP systolic 109–114; BP diastolic 56–63; PULSE 58–65; RESP 16–18; TEMP 36.2–36.3; O2SAT 92–93; BMI 45.4
[2024-09-16] MEDS: QUEtiapine 100 MG Tablet PO ×5 (00:59→23:45)
[2024-09-16] MEDS: LORazepam 0.5 MG Tablet PO ×2 (00:59→21:13)
[2024-09-16 06:21] LABS: Absolute Lymphocyte Count 1.02 X10^3/uL (0.83-4.51); Absolute Neutrophil Count 7.2 X10^3/uL (2.0-7.7); Basophil# 0.01 X10^3/uL; Basophil% 0.1 % (0-1); Hematocrit 41.8 % (37-47); Hemoglobin 13.7 g/dL (12.0-15.0); Lymphocyte # 1.02 X10^3/ul (0.83-4.51); Lymphocyte % 11.4 % (19-41); Mean Corp Hgb Conc 32.8 g/dL (32-36); Mean Corpuscular Hgb 30.9 pg (27.0-32.0); Mean Corpuscular Volume 94.4 fL (81-99); Mean Platelet Vol. 10.4 fl (6.2-12.0); Monocyte# 0.63 X10^3/uL; Monocyte% 7.1 % (0-10); NRBC Flagged by Analyzer 0 % (0-5); Neutrophil # 7.24 X10^3/uL (2.7-7.7); Neutrophil % 81.1 % (47-70); Platelet Count 263 K/mm3 (150-450); RBC Distribution Width CV 13.1 % (11.6-14.6); RBC Distribution Width SD 45.6 fl (35.1-43.9); Red Blood Count 4.43 M/mm3 (4.2-5.4); White Blood Count 8.9 K/mm3 (4.4-11.0)
[2024-09-16 06:55] LABS: Bedside Glucose 135 mg/dL (74-106)
[2024-09-16 07:02] LABS: Anion Gap 11 (5-15); BUN 31 mg/dL (4-19); BUN/Creat Ratio 23.4 RATIO (10-20); Calcium 9.2 mg/dL (7.6-11.0); Carbon Dioxide 25.6 mmol/L (22.0-29.0); Chloride 104 mmol/L (96-108); Creatinine, Serum 1.32 mg/dL (0.70-1.20); EST Glomerular Filtration Rate 46 (>60); Estimated Creatinine Clearance 54.94 ml/min (50-250); Glucose 136 mg/dL (70-99); Potassium 4.3 mmol/L (3.3-5.1); Sodium Level 140 mmol/L (133-145)
[2024-09-16] MEDS: Albuterol 2.5 MG/3 ML VIAL.NEB. INHALATION ×2 (08:17→13:29)
--- NOTE | 2024-09-16 09:25 | PCM.PN.HOSP ---
Subjective Subjective No issues overnight, maintaining oxygen saturations on room air Objective Data Objective Data Vital Signs: Vital Signs Temp Pulse Resp BP Pulse Ox O2 Del Method O2 Flow Rate 97.1 F L 59 L 16 110/56 L 93 Room Air 3 09/16/24 01:02 09/16/24 08:18 09/16/24 08:18 09/16/24 01:02 09/16/24 08:18 09/16/24 08:18 09/14/24 20:30 Oxygen Flow Rate (L/min) 3 Oxygen Delivery Method Room Air Weight: 260 lb 12.909 oz Body Mass Index (BMI) 45.4 Intake & Output: Intake and Output for Last 24 Hours 09/15/24 09/16/24 09/17/24 03:59 03:59 03:59 Intake Total 150 / 150 825 / 825 600 / 600 Output Total 1250 / 1250 2200 / 2200 Balance -1100 / -1100 825 / 825 -1600 / -1600 Lab / Micro Data 09/16/24 06:05 09/16/24 06:05 Labs: Laboratory Results - last 24 hr 09/15/24 11:50: POC Glucose 118 H 09/15/24 17:12: POC Glucose 141 H 09/15/24 21:47: POC Glucose 143 H 09/16/24 06:05: WBC 8.9, RBC 4.43, Hgb 13.7, Hct 41.8, MCV 94.4, MCH 30.9, MCHC 32.8, RDW Std Deviation 45.6 H, RDW Coeff of Robert 13.1, Plt Count 263, MPV 10.4, Immature Gran % (Auto) 0.300, Neut % (Auto) 81.1 H, Lymph % (Auto) 11.4 L, Allen % (Auto) 7.1, Eos % (Auto) 0.0, Baso % (Auto) 0.1, Absolute Neuts (auto) 7.2, Absolute Lymphs (auto) 1.02, Nucleated RBC % 0, Sodium 140, Potassium 4.3, Chloride Direct 104, Carbon Dioxide 25.6, Anion Gap 11, BUN 31 H, Creatinine 1.32 H, Estim Creat Clear Calc 54.94, Est GFR (MDRD) Non-Af 46 L, BUN/Creatinine Ratio 23.4 H, Glucose 136 H, Calcium 9.2 09/16/24 06:29: POC Glucose 135 H Micro: Microbiology 09/12/24 12:30 Urine, Catheterized Urine Culture - Final Culture exhibits no growth. 09/12/24 14:25 Blood Culture (Wb) - Anticubital Left Blood Culture - Preliminary No growth in 48 hours. 09/12/24 12:00 Blood Culture (Wb) - Right Hand Blood Culture - Preliminary No growth in 48 hours. 09/12/24 11:22 Mucosa - Nose SARS-CoV-2, Influenza & RSV (PCR) - Final SARS-CoV-2 (COVID 19) Social Homelessness:: Unsheltered Physical Exam Narrative General: Alert, Oriented x3, Cooperative, No apparent distress HEENT: Atraumatic, PERRLA, EOMI, Normocephalic Oral: Moist Mucosa Neck: Supple, No JVD Lungs: Diminished, Normal air movement, No rhonchi, No wheeze, No rales Cardiovascular: Regular rate, Regular Rhythm, Normal S1, Normal S2, No murmurs Abdomen: Soft, Non Tender, Non-Distended, No Hepato-splenomegaly Extremities: No edema, Capillary Refill Less than 3 Seconds Skin: No rashes, No breakdown Musculoskeletal: No Tenderness to Palpation of Joints or Extremities Neurological: No focal neurological deficits, Motor Exam 5/5 strength throughout, Sensory exam intact to light touch and pain Psych/Mental Status: Normal affect, appropriate Assessment & Plan Assessment/Plan (1) Stroke: (2) COVID: PLAN: Plan 1. TIA ? MRI is negative ? Echo is unremarkable ? Continue with Lipitor and Eliquis as well as aspirin ? Appreciate neurology's assistance ? She has no deficits currently ? PT/OT 2. COVID ? Does not appear to be hypoxic at the moment ? Continue with Decadron ? Given her homelessness attempting placement however they are hesitant secondary to her COVID diagnosis 3. Essential HTN/HLD/paroxysmal A-fib ? Continue with Eliquis ? Continue with her home blood pressure medications ? Will monitor make adjustments as necessary ?Continue with Lasix and monitor renal function 4. GERD ? Stable ? Continue with PPI Homeless: New development. Patient just discharged from the psychiatric facility. Case management to assist. Anticipate the patient may require detention facility when she is medically ready for discharge. Recent psychiatric hospitalization for roughly 20 days in [facility]. Continue with Seroquel and Ativan DVT: Eliquis Charges/Coding Visit Charges Inpatient E&M: 89168 Subs Hosp L2
[2024-09-16] MEDS: Aspirin 81 MG TAB.CHEW PO (09:33)
[2024-09-16] MEDS: dexAMETHasone 4 MG Tablet 6 MG PO (09:34)
[2024-09-16] MEDS: APIXABAN 5 MG TABLET PO ×2 (09:35→21:12)
[2024-09-16] MEDS: Citalopram 10 MG Tablet PO (09:35)
[2024-09-16] MEDS: Furosemide 20 MG Tablet PO ×2 (09:35→21:11)
[2024-09-16] MEDS: Nystatin Powder 15gm Bottle 1 APPLIC TOPICAL (09:36)
[2024-09-16] MEDS: Polyethylene Glycol 3350 17 GM PACKET PO ×2 (09:36→21:12)
[2024-09-16] MEDS: Pantoprazole Sodium 40 MG Tablet PO (09:37)
[2024-09-16] MEDS: Insulin Lispro 100 UNIT/ML INSULN.PEN SC ×3 (12:13→21:13)
[2024-09-16 12:35] LABS: Bedside Glucose 151 mg/dL (74-106)
[2024-09-16 17:53] LABS: Bedside Glucose 196 mg/dL (74-106)
[2024-09-16] MEDS: Acetaminophen 325 MG Tablet 650 MG PO (21:11)
[2024-09-16] MEDS: traZODone 100 MG Tablet 200 MG PO (21:11)
[2024-09-16] MEDS: Atorvastatin Calcium 10 MG Tablet 5 MG PO (21:12)
[2024-09-16 21:34] LABS: Bedside Glucose 172 mg/dL (74-106)
--- NOTE | 2024-09-17 01:39 | NURSING ---
This RN taking over care at this time
[2024-09-17 03:00] VITALS: BP 111/51; PULSE 57; RESP 16; TEMP 36.4; O2SAT 92
[2024-09-17] MEDS: QUEtiapine 100 MG Tablet PO ×3 (06:30→17:04)
[2024-09-17 06:49] LABS: Bedside Glucose 136 mg/dL (74-106)
[2024-09-17 07:47] VITALS: PULSE 68; RESP 20; O2SAT 92
[2024-09-17] MEDS: Ipratropium/Albuterol Sulfate 3 ML AMPUL.NEB INHALATION (07:47)
[2024-09-17 08:17] LABS: Anion Gap 13 (5-15); BUN 43 mg/dL (4-19); BUN/Creat Ratio 30.4 RATIO (10-20); Calcium 8.8 mg/dL (7.6-11.0); Carbon Dioxide 24.7 mmol/L (22.0-29.0); Chloride 101 mmol/L (96-108); Creatinine, Serum 1.41 mg/dL (0.70-1.20); EST Glomerular Filtration Rate 42 (>60); Estimated Creatinine Clearance 51.44 ml/min (50-250); Glucose 131 mg/dL (70-99); Potassium 4.2 mmol/L (3.3-5.1); Sodium Level 138 mmol/L (133-145)
--- NOTE | 2024-09-17 08:29 | CASEMGMT ---
Discharge Planning Updates sent to [facility]. Hannah Whiting DC Planning Asst.
[2024-09-17 08:53] VITALS: BP 106/83; PULSE 77; RESP 20; TEMP 36; O2SAT 93
[2024-09-17] MEDS: Aspirin 81 MG TAB.CHEW PO (08:53)
[2024-09-17] MEDS: dexAMETHasone 4 MG Tablet 6 MG PO (08:54)
[2024-09-17] MEDS: Nystatin Powder 15gm Bottle 1 APPLIC TOPICAL ×2 (08:54→21:50)
[2024-09-17] MEDS: Pantoprazole Sodium 40 MG Tablet PO (08:54)
[2024-09-17] MEDS: Citalopram 10 MG Tablet PO (08:54)
[2024-09-17] MEDS: Furosemide 20 MG Tablet PO (08:54)
[2024-09-17] MEDS: Polyethylene Glycol 3350 17 GM PACKET PO ×2 (08:54→21:42)
[2024-09-17] MEDS: APIXABAN 5 MG TABLET PO ×2 (08:54→21:39)
[2024-09-17] MEDS: LORazepam 0.5 MG Tablet PO ×2 (08:57→21:45)
[2024-09-17 10:30] VITALS: BMI 45.4
--- NOTE | 2024-09-17 10:34 | PN.HOSP_ITS ---
Subjective Subjective No issues overnight, awaiting placement Objective Data Objective Data Vital Signs: Vital Signs Temp Pulse Resp BP Pulse Ox O2 Del Method O2 Flow Rate 96.8 F L 77 20 H 106/83 H 93 Room Air 3 09/17/24 08:53 09/17/24 08:53 09/17/24 08:53 09/17/24 08:53 09/17/24 08:53 09/17/24 08:55 09/14/24 20:30 Oxygen Flow Rate (L/min) 3 Oxygen Delivery Method Room Air Weight: 260 lb 12.909 oz Body Mass Index (BMI) 45.4 Intake & Output: Intake and Output for Last 24 Hours 09/16/24 09/17/24 09/18/24 03:59 03:59 03:59 Intake Total 825 / 825 1320 / 1320 0 / 0 Output Total 2200 / 2200 1350 / 1350 Balance 825 / 825 -880 / -880 -1350 / -1350 Lab / Micro Data 09/16/24 06:05 09/17/24 05:46 Labs: Laboratory Results - last 24 hr 09/16/24 12:10: POC Glucose 151 H 09/16/24 17:31: POC Glucose 196 H 09/16/24 20:53: POC Glucose 172 H 09/17/24 05:46: Sodium 138, Potassium 4.2, Chloride Direct 101, Carbon Dioxide 24.7, Anion Gap 13, BUN 43 H, Creatinine 1.41 H, Estim Creat Clear Calc 51.44, E st GFR (MDRD) Non-Af 42 L, BUN/Creatinine Ratio 30.4 H, Glucose 131 H, Calcium 8.8 09/17/24 06:29: POC Glucose 136 H Micro: Microbiology 09/12/24 12:30 Urine, Catheterized Urine Culture - Final Culture exhibits no growth. 09/12/24 14:25 Blood Culture (Wb) - Anticubital Left Blood Culture - Preliminary No growth in 48 hours. 09/12/24 12:00 Blood Culture (Wb) - Right Hand Blood Culture - Preliminary No growth in 48 hours. 09/12/24 11:22 Mucosa - Nose SARS-CoV-2, Influenza & RSV (PCR) - Final SARS-CoV-2 (COVID 19) Social Homelessness:: Unsheltered Physical Exam Narrative General: Alert, Oriented x3, Cooperative, No apparent distress HEENT: Atraumatic, PERRLA, EOMI, Normocephalic Oral: Moist Mucosa Neck: Supple, No JVD Lungs: Diminished, Normal air movement, No rhonchi, No wheeze, No rales Cardiovascular: Regular rate, Regular Rhythm, Normal S1, Normal S2, No murmurs Abdomen: Soft, Non Tender, Non-Distended, No Hepato-splenomegaly Extremities: No edema, Capillary Refill Less than 3 Seconds Skin: No rashes, No breakdown Musculoskeletal: No Tenderness to Palpation of Joints or Extremities Neurological: No focal neurological deficits, Motor Exam 5/5 strength throughout, Sensory exam intact to light touch and pain Psych/Mental Status: Normal affect, appropriate Assessment & Plan Assessment/Plan (1) Stroke: (2) COVID: PLAN: Plan 1. TIA ? MRI is negative ? Echo is unremarkable ? Continue with Lipitor and Eliquis as well as aspirin ? Appreciate neurology's assistance ? She has no deficits currently ? PT/OT 2. COVID ? Does not appear to be hypoxic at the moment ? Continue with Decadron ? Given her homelessness attempting placement however they are hesitant secondary to her COVID diagnosis 3. Essential HTN/HLD/paroxysmal A-fib ? Continue with Eliquis ? Continue with her home blood pressure medications ? Will monitor make adjustments as necessary ? Renal function is climbing so we will hold Lasix 4. GERD ? Stable ? Continue with PPI Homeless: New development. Patient just discharged from the psychiatric facility. Case management to assist. Anticipate the patient may require halfway facility when she is medically ready for discharge. Recent psychiatric hospitalization for roughly 20 days in [facility]. Continue with Seroquel and Ativan DVT: Eliquis Charges/Coding Visit Charges Inpatient E&M: 51175 Subs Hosp L2
[2024-09-17 10:56] LABS: Absolute Lymphocyte Count 1.69 X10^3/uL (0.83-4.51); Absolute Neutrophil Count 10.2 X10^3/uL (2.0-7.7); Basophil# 0.01 X10^3/uL; Basophil% 0.1 % (0-1); Hematocrit 42.4 % (37-47); Hemoglobin 14.1 g/dL (12.0-15.0); Lymphocyte # 1.69 X10^3/ul (0.83-4.51); Lymphocyte % 13.2 % (19-41); Mean Corp Hgb Conc 33.3 g/dL (32-36); Mean Corpuscular Hgb 31.1 pg (27.0-32.0); Mean Corpuscular Volume 93.6 fL (81-99); Mean Platelet Vol. 10.6 fl (6.2-12.0); Monocyte# 0.85 X10^3/uL; Monocyte% 6.6 % (0-10); NRBC Flagged by Analyzer 0 % (0-5); Neutrophil # 10.22 X10^3/uL (2.7-7.7); Neutrophil % 79.6 % (47-70); Platelet Count 291 K/mm3 (150-450); RBC Distribution Width SD 45.1 fl (35.1-43.9); Red Blood Count 4.53 M/mm3 (4.2-5.4); White Blood Count 12.8 K/mm3 (4.4-11.0)
[2024-09-17 12:08] LABS: Bedside Glucose 144 mg/dL (74-106)
--- NOTE | 2024-09-17 12:44 | CASEMGMT ---
Blanca asked if they could do an onsite and come see patient in the hospital before accepting her. ANGI told them that is fine. They requested to do this tomorrow. However, ANGI asked if they could do it today as patient is ready for discharge. Farnaz Jo SHARPLES MACHINE OPERATOR DIANA
--- NOTE | 2024-09-17 14:02 | CASEMGMT ---
Blanca said they could take patient, but it would have to be 10 days out from her positive test which would be Sat September 22. SW spoke with patient and asked if she would be willing to go anywhere else. Patient said she was trying to get a hold of her cousin to see if he could rent her a room. Patient has tried to call him from her room phone, but it was not going through. SW assisted patient in calling the number and a recording said the call did not go through try again later. SW also tried from 's portable phone and the desk phone and the same recording came on. Patient was agreeable to a referral being made to [facility] in [place]. ANGI asked Hannah to please send a referral to [facility]. Farnaz Jo CENTRAL STORES ATTENDANT DIANA
--- NOTE | 2024-09-17 14:38 | CASEMGMT ---
Discharge Planning Referrals sent to [facility]. Hannah Whiting DC Planning Asst.
[2024-09-17 14:43] VITALS: BP 100/52; PULSE 67; RESP 20; TEMP 36.5; O2SAT 94
--- NOTE | 2024-09-17 15:38 | CASEMGMT ---
ANGI was able to locate a phone number for patient's brother Jakob Rico who lives in [place]. However, ANGI has tried to call the number several times and no one answers. The voice mail has not been set up. Santiago is reviewing referral now. Farnaz Jo TAILING MACHINE OPERATOR DIANA
[2024-09-17] MEDS: Insulin Lispro 100 UNIT/ML INSULN.PEN SC ×2 (17:02→21:39)
[2024-09-17 17:27] LABS: Bedside Glucose 238 mg/dL (74-106)
[2024-09-17] MEDS: traZODone 100 MG Tablet 200 MG PO (21:39)
[2024-09-17] MEDS: Atorvastatin Calcium 10 MG Tablet 5 MG PO (21:41)
[2024-09-17 21:51] VITALS: BP 106/55; PULSE 54; RESP 18; TEMP 36.7; O2SAT 91
[2024-09-17 22:42] LABS: Bedside Glucose 156 mg/dL (74-106)
[2024-09-18] VITALS (7 sets, daily range): BP systolic 101–125; BP diastolic 50–56; PULSE 54–74; RESP 16–20; TEMP 36.2–36.6; O2SAT 88–95; BMI 45.4
[2024-09-18] MEDS: QUEtiapine 100 MG Tablet PO ×5 (00:54→23:00)
[2024-09-18 06:51] LABS: Bedside Glucose 127 mg/dL (74-106)
[2024-09-18] MEDS: Albuterol 2.5 MG/3 ML VIAL.NEB. INHALATION ×2 (06:52→19:46)
[2024-09-18] MEDS: Polyethylene Glycol 3350 17 GM PACKET PO ×2 (08:05→23:00)
[2024-09-18] MEDS: Citalopram 10 MG Tablet PO (08:06)
[2024-09-18] MEDS: Aspirin 81 MG TAB.CHEW PO (08:06)
[2024-09-18] MEDS: Nystatin Powder 15gm Bottle 1 APPLIC TOPICAL ×2 (08:06→23:01)
[2024-09-18] MEDS: APIXABAN 5 MG TABLET PO ×2 (08:06→23:00)
[2024-09-18] MEDS: dexAMETHasone 4 MG Tablet 6 MG PO (08:06)
[2024-09-18] MEDS: Pantoprazole Sodium 40 MG Tablet PO (08:06)
[2024-09-18 08:53] LABS: Anion Gap 12 (5-15); BUN 43 mg/dL (4-19); BUN/Creat Ratio 30.9 RATIO (10-20); Calcium 8.9 mg/dL (7.6-11.0); Carbon Dioxide 24.3 mmol/L (22.0-29.0); Chloride 103 mmol/L (96-108); Creatinine, Serum 1.39 mg/dL (0.70-1.20); EST Glomerular Filtration Rate 43 (>60); Estimated Creatinine Clearance 52.18 ml/min (50-250); Glucose 124 mg/dL (70-99); Potassium 4.5 mmol/L (3.3-5.1); Sodium Level 139 mmol/L (133-145)
--- NOTE | 2024-09-18 09:56 | CASEMGMT ---
SW attempted to call patient's cousin again, but the same recording came on indicating call did not go through. SW also tried to call patient's brother, but there was no answer and no voice mail set up. SW will check back with patient to see if she has any updates. Farnaz Jo COMPOSITE TECHNICIAN DIANA
--- NOTE | 2024-09-18 10:05 | CASEMGMT ---
Addendum entered by Farnaz Jo 09/18/24 10:11: Saturnino WHITLEY with [facility] [phone] Farnaz Jo GEOLOGIC TECHNICIAN VP DATA Original Note: ANGI received a voice mail from Preethi, high school social science teacher with [employer] requesting a return call. ANGI called Preethi and left her a voice mail requesting a return call. Farnaz Jo GEOLOGIC TECHNICIAN VP DATA
--- NOTE | 2024-09-18 10:14 | CASEMGMT ---
ANGI received [facility] She asked for an update. ANGI explained cannot get patient to a penitentiary as she has Covid. Many nursing homes have declined patient, but there are a couple who would be able to take patient, but not until Tuesday 3-8 as this would be 10 days out from her positive test. There is one other senior care reviewing patient's referral. Patient is not currently active with a mental health agency in the area so she would not be able to access any [facility] funds. Farnaz ORTIZ
--- NOTE | 2024-09-18 10:28 | CASEMGMT ---
Discharge Planning Requested updates sent to [facility]. Hannah Whiting DC Planning Asst.
--- NOTE | 2024-09-18 10:55 | PCM.PN.HOSP ---
Subjective Subjective No issues overnight, continue to await placement Objective Data Objective Data Vital Signs: Vital Signs Temp Pulse Resp BP Pulse Ox O2 Del Method O2 Flow Rate 97.2 F L 60 18 104/54 L 91 Nasal Cannula 2 09/18/24 08:05 09/18/24 08:05 09/18/24 08:05 09/18/24 08:05 09/18/24 08:05 09/18/24 08:05 09/18/24 08:25 Oxygen Flow Rate (L/min) 2 Oxygen Delivery Method Nasal Cannula Weight: 260 lb 12.909 oz Body Mass Index (BMI) 45.4 Intake & Output: Intake and Output for Last 24 Hours 09/17/24 09/18/24 09/19/24 03:59 03:59 03:59 Intake Total 1320 / 1320 1320 / 1320 120 / 120 Output Total 2200 / 2200 1350 / 1350 Balance -880 / -880 -30 / -30 120 / 120 Lab / Micro Data 09/17/24 05:46 09/18/24 06:28 Labs: Laboratory Results - last 24 hr 09/13/24 05:54: Sodium 140, Potassium 3.9, Chloride Direct 109 H, Carbon Dioxide 21.1 L, Anion Gap 10, BUN 14, Creatinine 1.3 H, Estim Creat Clear Calc 55.79, Est GFR (MDRD) Non-Af 48 L, BUN/Creatinine Ratio 11.3, Glucose 130 H, Calcium 8.4, Triglycerides 71, Cholesterol 94, LDL Cholesterol, Calc 33, VLDL Cholesterol 14, HDL Cholesterol 47, Cholesterol/HDL Ratio 2.00, TSH 0.483 09/17/24 05:46: WBC 12.8 H, RBC 4.53, Hgb 14.1, Hct 42.4, MCV 93.6, MCH 31.1, MCHC 33.3, RDW Std Deviation 45.1 H, RDW Coeff of Robert 13.0, Plt Count 291, MPV 10.6, Immature Gran % (Auto) 0.500, Neut % (Auto) 79.6 H, Lymph % (Auto) 13.2 L, [place] % (Auto) 6.6, Eos % (Auto) 0.0, Baso % (Auto) 0.1, Absolute Neuts (auto) 10.2 H, Absolute Lymphs (auto) 1.69, Nucleated RBC % 0 09/17/24 11:34: POC Glucose 144 H 09/17/24 16:58: POC Glucose 238 H 09/17/24 21:38: POC Glucose 156 H 09/18/24 06:28: Sodium 139, Potassium 4.5, Chloride Direct 103, Carbon Dioxide 24.3, Anion Gap 12, BUN 43 H, Creatinine 1.39 H, Estim Creat Clear Calc 52.18, Est GFR (MDRD) Non-Af 43 L, BUN/Creatinine Ratio 30.9 H, Glucose 124 H, Calcium 8.9 09/18/24 06:30: POC Glucose 127 H Micro: Microbiology 09/12/24 12:00 Blood Culture (Wb) - Right Hand Blood Culture - Final No growth in 5 days. 09/12/24 14:25 Blood Culture (Wb) - Anticubital Left Blood Culture - Final No growth in 5 days. 09/12/24 12:30 Urine, Catheterized Urine Culture - Final Culture exhibits no growth. 09/12/24 11:22 Mucosa - Nose SARS-CoV-2, Influenza & RSV (PCR) - Final SARS-CoV-2 (COVID 19) Social Homelessness:: Unsheltered Physical Exam Narrative General: Alert, Oriented x3, Cooperative, No apparent distress HEENT: Atraumatic, PERRLA, EOMI, Normocephalic Oral: Moist Mucosa Neck: Supple, No JVD Lungs: Diminished, Normal air movement, No rhonchi, No wheeze, No rales Cardiovascular: Regular rate, Regular Rhythm, Normal S1, Normal S2, No murmurs Abdomen: Soft, Non Tender, Non-Distended, No Hepato-splenomegaly Extremities: No edema, Capillary Refill Less than 3 Seconds Skin: No rashes, No breakdown Musculoskeletal: No Tenderness to Palpation of Joints or Extremities Neurological: No focal neurological deficits, Motor Exam 5/5 strength throughout, Sensory exam intact to light touch and pain Psych/Mental Status: Normal affect, appropriate Assessment & Plan Assessment/Plan (1) Stroke: (2) COVID: PLAN: Plan 1. TIA ? MRI is negative ? Echo is unremarkable ? Continue with Lipitor and Eliquis as well as aspirin ? Appreciate neurology's assistance ? She has no deficits currently ? PT/OT 2. COVID ? intermittently requires oxygen though it is inconsistent ? Continue with Decadron ? Given her homelessness attempting placement however they are hesitant secondary to her COVID diagnosis 3. Essential HTN/HLD/paroxysmal A-fib ? Continue with Eliquis ? Continue with her home blood pressure medications ? Will monitor make adjustments as necessary ? Renal function is climbing so we will hold Lasix 4. GERD ? Stable ? Continue with PPI Homeless: New development. Patient just discharged from the psychiatric facility. Case management to assist. Anticipate the patient may require shelter facility when she is medically ready for discharge. Recent psychiatric hospitalization for roughly 20 days in [facility]. Continue with Seroquel and Ativan DVT: Leoncio Charges/Coding Visit Charges Inpatient E&M: 99383 Subs Hosp L1
--- NOTE | 2024-09-18 11:17 | CASEMGMT ---
SW checked in with patient letting her know that SW is still waiting on [facility] to get back regarding whether or not they can take patient. Patient said she needs to go to [employer] before she does any of that. SW explained to patient that if ANGI gets a nursing facility to take her she will go right from [facility] to the facility. Patient said she is waiting on someone to give her a call back with a phone number for another friend. SW told patient ANGI will update patient when SW has more information. Farnaz Jo MEDICAL DEVICE SALES REPRESENTATIVEBethel ORTIZ
[2024-09-18] MEDS: Insulin Lispro 100 UNIT/ML INSULN.PEN SC ×2 (11:47→23:03)
--- NOTE | 2024-09-18 12:00 | CASEMGMT ---
SW spoke with patient letting her know [facility] is not able to take her. SW asked patient if she would be okay if SW sent a referral to the facility on her list that is in [place]. Patient told SW no. Patient said she just needs to get to [place] so she can talk with her brother. SW told patient what if she gets to her brothers or cousins and they won't allow her to stay with them. What will she do? Patient did not have an answer other than they will probably let her stay with them. Patient said she needs to get out of here and go to the bank and JFS. SW told patient that is fine, but then where is she going to go. Patient did not have an answer. Farnaz Jo MSW DIANA
[2024-09-18 12:17] LABS: Bedside Glucose 165 mg/dL (74-106)
--- NOTE | 2024-09-18 13:34 | CASEMGMT ---
Discharge Planning [facility] has declined referral Hannah Whiting DC Planning Asst.
--- NOTE | 2024-09-18 13:54 | CASEMGMT ---
ANGI was able to reach patient's brother's (Jakob Rico) home. ANGI spoke with his Heavenly. ANGI explained patient is in the hospital and has no place to go would she be able to come there. Heavenly said no. They do not want anything to do with patient. Heavenly asked that SW not give this phone number to patient. ANGI asked Heavenly about patient's cousin Dereck. Heavenly said she does not know if Dereck would allow her to stay there. Heavenly did not know Dereck's phone number. ANGI thanked her for her time. Farnaz Jo TECHNICAL BUYER DIANA
[2024-09-18 17:03] LABS: Bedside Glucose 145 mg/dL (74-106)
[2024-09-18] MEDS: BENZOCAINE/MENTHOL 1 LOZENGE MUCOUS MEM (17:22)
[2024-09-18] MEDS: LORazepam 0.5 MG Tablet PO (22:59)
[2024-09-18] MEDS: Atorvastatin Calcium 10 MG Tablet 5 MG PO (23:00)
[2024-09-18] MEDS: traZODone 100 MG Tablet 200 MG PO (23:00)
[2024-09-18] MEDS: 0.9% Saline Lock 10 ML Syringe IV (23:00)
[2024-09-18 23:32] LABS: Bedside Glucose 185 mg/dL (74-106)
[2024-09-19] VITALS (8 sets, daily range): BP systolic 100–114; BP diastolic 44–60; PULSE 52–70; RESP 16–20; TEMP 36.2–36.6; O2SAT 91–95
[2024-09-19] MEDS: QUEtiapine 100 MG Tablet PO ×4 (06:21→23:13)
[2024-09-19 06:24] LABS: Absolute Lymphocyte Count 2.12 X10^3/uL (0.83-4.51); Absolute Neutrophil Count 14.6 X10^3/uL (2.0-7.7); Basophil# 0.03 X10^3/uL; Basophil% 0.2 % (0-1); Hematocrit 42.3 % (37-47); Hemoglobin 14.1 g/dL (12.0-15.0); Lymphocyte # 2.12 X10^3/ul (0.83-4.51); Lymphocyte % 11.7 % (19-41); Mean Corp Hgb Conc 33.3 g/dL (32-36); Mean Platelet Vol. 10.1 fl (6.2-12.0); Monocyte# 1.15 X10^3/uL; Monocyte% 6.4 % (0-10); NRBC Flagged by Analyzer 0 % (0-5); Neutrophil # 14.58 X10^3/uL (2.7-7.7); Neutrophil % 80.7 % (47-70); Platelet Count 302 K/mm3 (150-450); RBC Distribution Width SD 44.3 fl (35.1-43.9); Red Blood Count 4.55 M/mm3 (4.2-5.4); White Blood Count 18.1 K/mm3 (4.4-11.0)
[2024-09-19 06:49] LABS: Anion Gap 11 (5-15); BUN 42 mg/dL (4-19); BUN/Creat Ratio 29.4 RATIO (10-20); Calcium,Total 8.7 mg/dL (7.6-11.0); Carbon Dioxide 23.5 mmol/L (21.0-32.0); Chloride 102 mmol/L (98-108); Creatinine, Serum 1.43 mg/dL (0.70-1.20); EST Glomerular Filtration Rate 41 (>60); Estimated Creatinine Clearance 50.72 ml/min (50-250); Glucose 128 mg/dL (70-99); Potassium 4.9 mmol/L (3.3-5.1); Sodium Level 136 mmol/L (133-145)
[2024-09-19 07:03] LABS: Bedside Glucose 127 mg/dL (74-106)
[2024-09-19] MEDS: Citalopram 10 MG Tablet PO (07:56)
[2024-09-19] MEDS: Aspirin 81 MG TAB.CHEW PO (07:56)
[2024-09-19] MEDS: Nystatin Powder 15gm Bottle 1 APPLIC TOPICAL ×2 (07:56→23:13)
[2024-09-19] MEDS: Pantoprazole Sodium 40 MG Tablet PO (07:56)
[2024-09-19] MEDS: APIXABAN 5 MG TABLET PO ×2 (07:56→23:12)
[2024-09-19] MEDS: dexAMETHasone 4 MG Tablet 6 MG PO (07:56)
[2024-09-19] MEDS: Polyethylene Glycol 3350 17 GM PACKET PO (07:56)
[2024-09-19] MEDS: Insulin Lispro 100 UNIT/ML INSULN.PEN SC ×2 (11:49→23:14)
[2024-09-19 12:15] LABS: Bedside Glucose 172 mg/dL (74-106)
--- NOTE | 2024-09-19 12:36 | CASEMGMT ---
SW spoke with patient and she still has not heard from one of her friends. SW asked patient if she still has a case briefer at [facility]. Patient said they don't have case hardener anymore. SW asked patient if she gets any services from [facility]. Patient said she sees a Psychiatrist. SW called [facility] and patient is still active with them. ANGI asked if patient still has a case briefer and SW was transferred to Blanca Harris, the manager life sciences of [facility]. ANGI left Blanca a voice mail requesting a return call. Farnaz ORTIZ
--- NOTE | 2024-09-19 13:13 | PCM.PN.HOSP ---
Reason for Visit Reason for Visit: Diagnoses Cerebral infarction, unspecified (09/12/24) COVID-19 (09/12/24) Subjective Subjective Mild headaches, easily awaiting transfer to [facility] Objective Data Objective Data Vital Signs: Vital Signs Temp Pulse Resp BP Pulse Ox O2 Del Method O2 Flow Rate 97.3 F L 66 18 108/60 93 Room Air 2 09/19/24 07:54 09/19/24 07:54 09/19/24 07:54 09/19/24 07:54 09/19/24 07:54 09/19/24 07:54 09/18/24 15:42 Oxygen Flow Rate (L/min) 2 Oxygen Delivery Method Room Air Weight: 260 lb 12.909 oz Body Mass Index (BMI) 45.4 Intake & Output: Intake and Output for Last 24 Hours 09/17/24 09/18/24 09/19/24 23:59 23:59 23:59 Intake Total 1800 / 2040 710 / 710 500 / 500 Output Total 1350 / 1350 600 / 600 Balance 450 / 690 710 / 710 -100 / -100 Lab / Micro Data 09/19/24 05:12 09/19/24 05:12 Labs: Laboratory Results - last 24 hr 09/18/24 16:30: POC Glucose 145 H 09/18/24 23:02: POC Glucose 185 H 09/19/24 05:12: WBC 18.1 H, RBC 4.55, Hgb 14.1, Hct 42.3, MCV 93.0, MCH 31.0, MCHC 33.3, RDW Std Deviation 44.3 H, RDW Coeff of Robert 13.0, Plt Count 302, MPV 10.1, Immature Gran % (Auto) 1.000 H, Neut % (Auto) 80.7 H, Lymph % (Auto) 11.7 L, [place] % (Auto) 6.4, Eos % (Auto) 0.0, Baso % (Auto) 0.2, Absolute Neuts (auto) 14.6 H, Absolute Lymphs (auto) 2.12, Nucleated RBC % 0, Sodium 136, Potassium 4.9, Chloride 102, Carbon Dioxide 23.5, Anion Gap 11, BUN 42 H, Creatinine 1.43 H, Estim Creat Clear Calc 50.72, Est GFR (MDRD) Non-Af 41 L, BUN/Creatinine Ratio 29.4 H, Glucose 128 H, Calcium 8.7 09/19/24 06:20: POC Glucose 127 H 09/19/24 11:48: POC Glucose 172 H Micro: Microbiology 09/12/24 12:00 Blood Culture (Wb) - Right Hand Blood Culture - Final No growth in 5 days. 09/12/24 14:25 Blood Culture (Wb) - Anticubital Left Blood Culture - Final No growth in 5 days. 09/12/24 12:30 Urine, Catheterized Urine Culture - Final Culture exhibits no growth. 09/12/24 11:22 Mucosa - Nose SARS-CoV-2, Influenza & RSV (PCR) - Final SARS-CoV-2 (COVID 19) Social Homelessness:: Unsheltered Physical Exam Const alert, oriented x3 and no apparent distress HEENT head/scalp atraumatic Mouth: oral and palatal mucosa normal Neck no lymphadenopathy Resp normal respiratory effort Cardio regular rate and regular rhythm GI normal to inspection, nondistended, normoactive bowel sounds Extremity normal to inspection Neuro oriented x3 and CN's II-XII intact bilaterally Psych affect normal Assessment & Plan Assessment/Plan (1) Stroke: PLAN: Plan 64-year-old female here for concerns regarding difficulty in speaking and evaluation for TIA. She is presently waiting bed placement 1. TIA ? MRI is negative ? Echo is unremarkable ? Continue with Lipitor and Eliquis as well as aspirin ? Appreciate neurology's assistance ? She has no deficits currently ? PT/OT 2. COVID ? intermittently requires oxygen though it is inconsistent ? Continue with Decadron ? Given her homelessness attempting placement however they are hesitant secondary to her COVID diagnosis 3. Essential HTN/HLD/paroxysmal A-fib ? Continue with Eliquis ? Continue with her home blood pressure medications ? Will monitor make adjustments as necessary ? Renal function is climbing so we will hold Lasix 4. GERD ? Stable ? Continue with PPI Homeless: New development. Patient just discharged from the psychiatric facility. Case management to assist. Anticipate the [place] when she is medically ready for discharge. Recent psychiatric hospitalization for roughly 20 days in [facility]. Continue with Seroquel and Ativan DVT: Eliquis Charges/Coding Visit Charges Inpatient E&M: 39654 Init Hosp L1
--- NOTE | 2024-09-19 14:23 | CASEMGMT ---
ANGI received a return call from [facility] ([facility]) medical records. She said she will fax a release of information to SW. SW received the release of information from [facility]. ANGI had patient sign the release of information. ANGI is still waiting for a call back from Blanca Harris the manager books of [facility] case management dept. Farnaz Jo INSPECTOR SCALESBethel ORTIZ
--- NOTE | 2024-09-19 14:28 | CASEMGMT ---
Jeffery Villatoro responded in [facility] that they are not able to accept patient. Farnaz Jo TAMPING MACHINE OPERATOR ROAD FORMS DIANA
--- NOTE | 2024-09-19 15:14 | CASEMGMT ---
ANGI spoke with Blanca Recio at [facility] and she said patient has not had a case making machine operator since 2021. Blanca also said patient won't qualify for the Access to Wellness program through [facility] since she has not had 2 psychiatric admissions in the last year. Blanca said if patient would go to [facility] they could connect with patient there and get her set up with a case making machine operator. Blanca asked that SW let her know where patient ends up going at d/c. ANGI called [facility] and spoke with Jennifer. ANGI did not say patient's name, but she knew who SW was talking about. Jennifer said they would not be able to take patient as when she was there before she could not take care of herself and needed a lot of help. The individuals there have to leave every morning and evening. They feel this would be too much for patient. Jennifer said [facility] may have a female bed open. ANGI called [facility] and was informed they do not have any female beds available. They do not know when they will have one. ANGI called [facility]'s housing program and left a message for Taylor who is in charge of the housing program. ANGI requested a return call regarding patient. ANGI will continue to try and find a place for patient. Farnaz Jo GUSSET MAKER DIANA
[2024-09-19 17:12] LABS: Bedside Glucose 142 mg/dL (74-106)
[2024-09-19] MEDS: Acetaminophen 325 MG Tablet 650 MG PO (18:52)
[2024-09-19] MEDS: Albuterol 2.5 MG/3 ML VIAL.NEB. INHALATION (19:58)
[2024-09-19] MEDS: BENZOCAINE/MENTHOL 1 LOZENGE MUCOUS MEM (20:37)
[2024-09-19] MEDS: traZODone 100 MG Tablet 200 MG PO (23:13)
[2024-09-19] MEDS: Atorvastatin Calcium 10 MG Tablet 5 MG PO (23:13)
[2024-09-19] MEDS: 0.9% Saline Lock 10 ML Syringe IV (23:14)
[2024-09-19 23:43] LABS: Bedside Glucose 208 mg/dL (74-106)
[2024-09-20 02:44] VITALS: BMI 45.4
[2024-09-20 06:00] VITALS: BP 99/51; PULSE 58; RESP 18; TEMP 36.2; O2SAT 94
[2024-09-20] MEDS: QUEtiapine 100 MG Tablet PO ×4 (06:05→23:45)
[2024-09-20 06:58] LABS: Bedside Glucose 119 mg/dL (74-106)
[2024-09-20 10:16] VITALS: BP 101/44; PULSE 63; RESP 18; TEMP 36.1; O2SAT 92
[2024-09-20] MEDS: Citalopram 10 MG Tablet PO (10:22)
[2024-09-20] MEDS: dexAMETHasone 4 MG Tablet 6 MG PO (10:22)
[2024-09-20] MEDS: Pantoprazole Sodium 40 MG Tablet PO (10:24)
[2024-09-20] MEDS: Aspirin 81 MG TAB.CHEW PO (10:24)
[2024-09-20] MEDS: APIXABAN 5 MG TABLET PO ×2 (10:24→22:09)
[2024-09-20] MEDS: Nystatin Powder 15gm Bottle 1 APPLIC TOPICAL ×2 (10:26→22:08)
[2024-09-20] MEDS: LORazepam 0.5 MG Tablet PO ×2 (10:29→23:45)
--- NOTE | 2024-09-20 11:55 | PCM.PN.HOSP ---
Reason for Visit Reason for Visit: Diagnoses Cerebral infarction, unspecified (09/12/24) COVID-19 (09/12/24) Subjective Subjective Overall doing well, no active symptoms Would like to get discharged along with a ride to [place] to meet her brother if possible. Upon case management evaluation the brother declined taking care of her after discharge. Objective Data Objective Data Vital Signs: Vital Signs Temp Pulse Resp BP Pulse Ox O2 Del Method O2 Flow Rate 97.0 F L 63 18 101/44 L 92 Room Air 2 09/20/24 10:16 09/20/24 10:16 09/20/24 10:16 09/20/24 10:16 09/20/24 10:16 09/20/24 10:16 09/18/24 15:42 Oxygen Flow Rate (L/min) 2 Oxygen Delivery Method Room Air Weight: 260 lb 12.909 oz Body Mass Index (BMI) 45.4 Intake & Output: Intake and Output for Last 24 Hours 09/18/24 09/19/24 09/20/24 23:59 23:59 23:59 Intake Total 710 / 710 750 / 750 200 / 200 Output Total 600 / 600 600 / 600 Balance 710 / 710 150 / 150 -400 / -400 Lab / Micro Data Attestation: I reviewed the patient's lab results. 09/19/24 05:12 09/19/24 05:12 Labs: Laboratory Results - last 24 hr 09/19/24 11:48: POC Glucose 172 H 09/19/24 16:44: POC Glucose 142 H 09/19/24 23:11: POC Glucose 208 H 09/20/24 06:03: POC Glucose 119 H Micro: Microbiology 09/12/24 12:00 Blood Culture (Wb) - Right Hand Blood Culture - Final No growth in 5 days. 09/12/24 14:25 Blood Culture (Wb) - Anticubital Left Blood Culture - Final No growth in 5 days. 09/12/24 12:30 Urine, Catheterized Urine Culture - Final Culture exhibits no growth. 09/12/24 11:22 Mucosa - Nose SARS-CoV-2, Influenza & RSV (PCR) - Final SARS-CoV-2 (COVID 19) Social Homelessness:: Unsheltered Physical Exam Const alert and oriented x3 HEENT head/scalp atraumatic Eyes PERRL and EOMs intact bilaterally Neck no lymphadenopathy Cardio regular rate and regular rhythm GI normal to inspection, nondistended, normoactive bowel sounds Extremity normal to inspection and full ROM Neuro oriented x3 and CN's II-XII intact bilaterally Assessment & Plan Assessment/Plan (1) Stroke: PLAN: Plan 64-year-old female here for concerns regarding difficulty in speaking and evaluation for TIA. She is presently waiting bed placement to a homeless [facility]. 1. TIA ? MRI is negative ? Echo is unremarkable ? Continue with Lipitor and Eliquis as well as aspirin ? Appreciate neurology's assistance ? She has no deficits currently ? PT/OT evaluation 2. COVID ? Doing well on room air ?Continue Decadron till 09/22/2024 ? Given her homelessness attempting placement however they are hesitant secondary to her COVID diagnosis 3. Essential HTN/HLD/paroxysmal A-fib ? Continue with Eliquis ? Continue with her home blood pressure medications ? Will monitor make adjustments as necessary ? Renal function is climbing so we will hold Lasix 4. GERD ? Stable ? Continue with PPI Charges/Coding Visit Charges Inpatient E&M: 70645 Subs Hosp L1
[2024-09-20] MEDS: Insulin Lispro 100 UNIT/ML INSULN.PEN SC ×3 (12:27→22:08)
[2024-09-20 12:54] LABS: Bedside Glucose 160 mg/dL (74-106)
--- NOTE | 2024-09-20 13:53 | CASEMGMT ---
Social Work Phone call to [facility] and [facility] and neither group home has a bed available. Phone call to [facility] in [place] and they would have bed availability. SW met with pt to discuss discharge options. SW explained that local shelters have no availability but a group home in [place] would have an opening. Pt adamantly refusing to go to any group home out of the area. Pt was brought to the ED by a friend Ahmet Alexandra. SW inquired if pt could stay with him at discharge. Pt denied stating pt is homeless. Pt states she has other friends, but they all live in housing that does not allow others to stay. Pt states she just needs a ride to the bank, then to the place to get her cell phone fixed, then to [employer] for her food stamps, then to [employer] to her brothers house. ANGI inquired if pt has spoke with brother but pt denies she has and just needs to knock on his door and brother Jakob and Heavenly will be happy to take her in. Pt is fixated on this plan and is unable/unwilling to discuss other options. ANGI inquired about staying in a hotel. Pt states she does have money in her bank account from September's payment. Pt [facility] and could possibly do this again but for a very short time as it is expensive. ANGI did speak with Taylor with [facility] housing program. Taylor recommending out of town shelters and [facility] a longer [facility] solution and there is nothing they can do in the immediate time to assist. Message sent to [facility] to see if pt could admit under an intermediate level of care. BILL Siegel
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
--- NOTE | 2024-09-20 15:57 | CHAPLAIN ---
Type of Pastoral Visit ___ Initial Visit ___ Follow-up Visit ___ On-call Visit ___ General Patient Visit ___ Spiritual Assessment ___ Family Conference ___ Bereavement ___ Rapid Response ___ Code Blue _x__ Other (describe below) Pastoral Care Referral From _x__ Patient ___ Family ___ Nurse ___ Physician ___ Consulting Property Manager ___ Career And Technology Education Teacher ___ Other (describe below) Sacrament/Intervention _x__ Active listening ___ Anointing ___ Anglican ___ Bereavement ___ Communion ___ Kendy exploration ___ ___ Life review _x__ Prayer ___ Reconciliation ___ Sacrament of Sick ___ Supportive presence ___ Wedding ___ Other (describe below) Pastoral Comments patient has been in an isolation room and previously was unable to have phone calls; phone call placed today and the patient was able to answer and to talk freely; pt expresses that she should be discharged tomorrow and will be going to SNF; pt says that she is doing better and appreciated the help given; pt would like a prayer to be said for her support at this time
[2024-09-20 16:25] VITALS: BMI 45.4
[2024-09-20 17:44] LABS: Bedside Glucose 208 mg/dL (74-106)
[2024-09-20 22:00] VITALS: BP 100/48; PULSE 63; RESP 16; TEMP 36.6; O2SAT 96
[2024-09-20] MEDS: Atorvastatin Calcium 10 MG Tablet 5 MG PO (22:08)
[2024-09-20] MEDS: traZODone 100 MG Tablet 200 MG PO (22:08)
[2024-09-20 22:36] LABS: Bedside Glucose 216 mg/dL (74-106)
[2024-09-21 04:00] VITALS: BP 100/48; PULSE 66; RESP 16; TEMP 36; O2SAT 94
[2024-09-21] MEDS: QUEtiapine 100 MG Tablet PO ×2 (05:46→12:06)
[2024-09-21] MEDS: Insulin Lispro 100 UNIT/ML INSULN.PEN SC ×2 (05:48→12:06)
[2024-09-21 06:08] LABS: Bedside Glucose 177 mg/dL (74-106)
[2024-09-21 07:30] VITALS: PULSE 77; RESP 20
[2024-09-21] MEDS: Ipratropium/Albuterol Sulfate 3 ML AMPUL.NEB INHALATION (07:32)
[2024-09-21] MEDS: dexAMETHasone 4 MG Tablet 6 MG PO (09:26)
[2024-09-21] MEDS: Aspirin 81 MG TAB.CHEW PO (09:27)
[2024-09-21] MEDS: Pantoprazole Sodium 40 MG Tablet PO (09:27)
[2024-09-21] MEDS: APIXABAN 5 MG TABLET PO (09:27)
[2024-09-21] MEDS: Citalopram 10 MG Tablet PO (09:27)
[2024-09-21] MEDS: Nystatin Powder 15gm Bottle 1 APPLIC TOPICAL (09:29)
[2024-09-21 09:30] VITALS: BP 110/46; PULSE 67; RESP 17; TEMP 36.6; O2SAT 93
[2024-09-21] MEDS: LORazepam 0.5 MG Tablet PO (09:35)
[2024-09-21 12:26] LABS: Bedside Glucose 175 mg/dL (74-106)
--- NOTE | 2024-09-21 12:28 | PCM.DC.SUM ---
Providers Date of Admission: 09/12/24 Date of Discharge: 09/21/24 Primary Care Physician: Dr. Homer Bradford MD Consultations 09/12/24 16:02 Consult: Tele-Neurology Routine Consulting Provider: [facility] Reason for Consult: Acute Ischemic Stroke/TIA EMERGENT Consult: No MD Notified: Yes Date Notified: 09/12/24 Time Notified: 16:21 Method of Notification: Answering Service Nursing Unit Staff Notify [facility] of Tele-Neurology Consult: Yes Reason For Visit: CVA, COVID Diagnosis Discharge Diagnosis (1) Stroke: Status: Acute Code(s): I63.9 - Cerebral infarction, unspecified Plan 1. TIA ? MRI is negative ? Echo is unremarkable ? Continue with Lipitor and Eliquis as well as aspirin 2. COVID ? Doing well on room air ? Received Decadron 12 09/21/2024 3. Essential HTN/HLD/paroxysmal A-fib ? Continue with Eliquis ? Continue with her home blood pressure medications ? Will monitor make adjustments as necessary ? Renal function is climbing so we will hold Lasix 4. GERD ? Stable ? Continue with PPI Medications at Discharge Home Medications lovastatin 20 mg tablet 20 mg PO QDAY cholesterol 06/22/17 ipratropium 0.5 mg-albuterol 3 mg (2.5 mg base)/3 mL nebulization soln 3 ml inhalation Q4HWA.RT PRN shortness of breath or wheezing #0 mL 09/07/21 omega-3 fatty acids-fish oil 360 mg-1,200 mg capsule (Fish Oil) 1 cap PO BID Joints 03/04/23 omeprazole 40 mg capsule,delayed release 40 mg PO DAILY Gerd 11/18/23 albuterol sulfate 90 mcg/actuation aerosol inhaler (Ventolin HFA) 1 puff inhalation Q6H 30 days #8.5 grams 09/21/24 apixaban 5 mg tablet (Eliquis) 5 mg PO Q12H anticoagulant 30 days #60 tabs 09/21/24 aspirin 81 mg chewable tablet 81 mg PO BREAKFAST 30 days #30 tabs 09/21/24 citalopram 10 mg tablet (Celexa) 10 mg PO DAILY depression 30 days #30 tabs 09/21/24 furosemide 20 mg tablet 20 mg PO BID Diuretic 30 days #60 tabs 09/21/24 lorazepam 0.5 mg tablet (Ativan) 0.5 mg PO Q12H PRN Anxiety 30 days #60 tabs 09/21/24 quetiapine 200 mg tablet,extended release 24 hr 200 mg PO BID Bipolar 30 days #30 tabs 09/21/24 trazodone 100 mg tablet 200 mg (2 x 100 mg) PO QHS Sleep 30 days #30 tabs 09/21/24 Hospital Course Operations None Procedures None Summary of Care Provided Minutes Spent on Discharge: 20 Hospital Course: 64-year-old female here for concerns regarding difficulty in speaking and evaluation for TIA. Stroke evaluation was negative, she was waiting for a bed as she is homeless. She is continue with home cardiovascular medication and is now being discharged to [facility]. Physical Exam Const alert, oriented x3 and no apparent distress General Appearance: cooperative and comfortable HEENT normocephalic Eyes PERRL Neck no lymphadenopathy Resp normal respiratory effort Cardio regular rate and regular rhythm GI normal to inspection, nondistended, normoactive bowel sounds Extremity normal to inspection Skin no rashes or lesions noted Neuro oriented x3, CN's II-XII intact bilaterally and moves all extremities Medical Records Data Homelessness:: Unsheltered Weight / BMI Weight Weight: 260 lb 12.909 oz Body Mass Index (BMI) 45.4 ABG / Lab / Microbiology Data 09/19/24 05:12 09/19/24 05:12 Laboratory: Laboratory Results - last 24 hr 09/20/24 17:22: POC Glucose 208 H 09/20/24 22:06: POC Glucose 216 H 09/21/24 05:48: POC Glucose 177 H 09/21/24 12:04: POC Glucose 175 H Microbiology: Microbiology 09/12/24 12:00 Blood Culture (Wb) - Right Hand Blood Culture - Final No growth in 5 days. 09/12/24 14:25 Blood Culture (Wb) - Anticubital Left Blood Culture - Final No growth in 5 days. 09/12/24 12:30 Urine, Catheterized Urine Culture - Final Culture exhibits no growth. 09/12/24 11:22 Mucosa - Nose SARS-CoV-2, Influenza & RSV (PCR) - Final SARS-CoV-2 (COVID 19) D/C Instructions Discharge Diet: No restrictions DC O2, CPAP, BIPAP Needs Home O2 Discharge instructions: No DC home with Oxygen: No Meaningful Use Info Meaningful Use Meaningful Use Diagnoses (Choose all that apply): None applicable Ischemic Stroke Statin Dosing Therapy Reference: STATIN DOSE THERAPY REFERENCE: * Patients > 75 years receive moderate or high dose statin therapy. * Patients 75 years or YOUNGER should receive HIGH intensity statin dose unless contraindicated. You will be required to document reason for non-treatment if statin daily dose does not meet guidelines. HIGH DOSE STATIN THERAPY DAILY Atorvastatin > than or = to 40 mg Rosuvastatin > than or = to 20 mg Amlodipine + Atorvastatin > than or = to 2.5/40 mg Ezetimibe + Simvastatin 10/80 mg Simvastatin 80mg Discharge Plan Admission Admit Date/Time: 09/12/24 14:50 Primary Reason for Your Visit: Dizziness Attending Provider: Marco Jones Primary Care Provider: Homer Bradford Consulting Providers: oJnathan Butcher; Kristen Simons; Leyda Celis; Hodan Chapa; Leah Hartman; Long Zamarripa; Faustina Bach; Tomás Willis; Stuart Balbuena; Kamar Redmond; Chioma Hsieh; Dennys Ryan; Lori Jacobs; Elisabeth Yung; Jovanny García; Frank Yusuf; Ariella Morrison; Sandor Zaldivar; Flores Pruitt; Martha Irene; Wilfredo Denton; Guevara Collins Discharge Orders/Prescriptions Prescriptions: New aspirin 81 mg Tablet,Chewable 81 mg PO BREAKFAST 30 Days Qty: 30 0RF Continued lovastatin 20 mg tablet 20 mg PO QDAY omega-3 fatty acids-fish oil [Fish Oil] 360-1,200 mg capsule 1 cap PO BID ipratropium-albuterol 0.5 mg-3 mg(2.5 mg base)/3 mL Solution For Nebulization 3 ml inhalation Q4HWA.RT PRN (Reason: shortness of breath or wheezing) Qty: 0 0RF citalopram [Celexa] 10 mg tablet 10 mg PO DAILY 30 Days Qty: 30 0RF lorazepam [Ativan] 0.5 mg tablet 0.5 mg PO Q12H PRN (Reason: Anxiety) 30 Days Qty: 60 0RF trazodone 100 mg tablet 200 mg PO QHS 30 Days Qty: 30 0RF furosemide 20 mg tablet 20 mg PO BID 30 Days Qty: 60 0RF albuterol sulfate [Ventolin HFA] 90 mcg/actuation HFA aerosol inhaler 1 puff INHALATION Q6H 30 Days Qty: 8.5 12RF quetiapine 200 mg tablet extended release 24 hr 200 mg PO BID 30 Days Qty: 30 0RF Patient Comments: [NO ORIGINAL SIG] Eliquis 5 mg tablet 5 mg PO Q12H 30 Days Qty: 60 0RF omeprazole 40 mg capsule,delayed release(DR/EC) 40 mg PO DAILY Discontinued hyoscyamine sulfate [Oscimin SR] 0.375 mg tablet extended release 12 hr 0.375 mg PO BID vitamin B complex [B Complex-Vitamin B12] Tablet 1 tab PO BID Referrals / Follow Up: Homer Bradford MD [Primary Care Provider] - Disposition Disposition (needs filled in before D/C Order can be placed): Home, Self Care
--- NOTE | 2024-09-21 13:24 | CASEMGMT ---
Social Work ANGI met with pt and discussed discharge plan at length. Pt is ready for discharge today and agreeable with the discharge plan set forth. SW assisted pt in calling the [facility] and pt reserved a week at the hotel. [facility] Van arranged and will pick pt up at 3:30 today and take her the the [facility] downtown where pt will be able to unfreeze her account, get money and get a new Debit Card. ANGI provided pt with list of Taxi's and phone numbers. Pt to call a Taxi from the bank and obtain transportation to [facility]. Pt has no medications as they were all left in [place] with pt's niece when she was there. ANGI called [facility] and spoke with Zoila who states pt has refills available on all meds and [facility] will fill the prescriptions and deliver them to the [facility] at 5pm. Pt notified that she must be present to obtain medications and pt expresses understanding. Discharging med list faxed to [facility]. Nursing updated and to provide a couple frozen meals and toiletries to pt. ANGI provided written information with phone numbers on area shelters, transportation, [facility] Housing program, [facility], [employer] [facility] [employer], and [employer] info. ANGI phoned Blanca at [facility] and updated on discharge plan and requested pt be seen to establish with case management services. Blanca requested to speak with pt and phone call transferred to pt. Pt confirms she spoke with Blanca on the phone. SW reviewed discharge plan with pt and pt is able to correctly state back transportation providers and how she will get to the [facility]. Pt appreciative of assistance with discharge. Physician and nursing notified of dc plan. BILL Siegel
[2024-09-21 15:12] VITALS: BP 125/56; PULSE 84; RESP 17; TEMP 36.6; O2SAT 92
[2024-09-21 15:16] VITALS: BMI 45.4
== END 2024-09-21 15:30 | disposition home or self-care (01) | DRG 45 ==
LOC: ED 13:57 → PCU 09-13 07:05
PROVIDERS: Family Medicine; Emergency Provider Emergency Medicine; PCP Family Medicine; Visit Provider Internal Medicine
DX: I63.9 Cerebral infarction, unspecified (principal); U07.1 COVID-19; F31.9 Bipolar disorder, unspecified; E11.22 Type 2 diabetes mellitus with diabetic chronic kidney disease; N18.30 Chronic kidney disease, stage 3 unspecified; J44.9 Chronic obstructive pulmonary disease, unspecified; E66.813 Obesity, class 3; I48.0 Paroxysmal atrial fibrillation; F17.200 Nicotine dependence, unspecified, uncomplicated; E78.00 Pure hypercholesterolemia, unspecified; K21.9 Gastro-esophageal reflux disease without esophagitis; F41.9 Anxiety disorder, unspecified; Z68.42 Body mass index [BMI] 45.0-49.9, adult; R14.0 Abdominal distension (gaseous); Z86.73 Personal history of transient ischemic attack (TIA), and cerebral infarction without residual deficits; Z79.01 Long term (current) use of anticoagulants; Z79.82 Long term (current) use of aspirin; Z59.02 Unsheltered homelessness; Z79.899 Other long term (current) drug therapy; Z90.49 Acquired absence of other specified parts of digestive tract
CPT/HCPCS: 36415; 51702; 70450; 70544; 70547; 70551; 71045; 80048; 80053; 80061; 81001; 82962; 83036; 83605; 83880; 84443; 84484; 85025; 85610; 85730; 87040; 87086; 87631; 93005; 93306; 94640; 94668; 97110; 97116; 97162; 97166; 97530; 97535; 99252; 99285; 99406; A4216; G0463

== ENCOUNTER 2024-11-04 12:29 | Inpatient (IN) | payer MEDICAID, SELFPAY ==
[2024-11-04] VITALS (8 sets, daily range): BP systolic 89–109; BP diastolic 57–78; PULSE 86–96; RESP 16–20; TEMP 36.1–36.8; O2SAT 95–99; BMI 47.1; BMI 46.3
--- NOTE | 2024-11-04 12:46 | ED.RN ---
Social work notified of patient's need for placement.
--- NOTE | 2024-11-04 12:53 | EDS_ITS ---
HPI <YADIRA Rajan - Last Filed: 11/04/24 15:04> History of Present Illness Chief Complaint: Weakness Narrative Narrative: Patient presenting today due to failure to thrive. She is currently living with friends who are moving out of the house they have been staying at today, she will not have any place to stay once they leave. She has been unable to take care of herself over the last several weeks as she cannot stand up due to weakness and pain in her legs. The people she is staying with have to help her stand up so that she can change her briefs, but she does not change them regularly and has not been changed since last night. She admits that she has not had a bath in about 2 weeks. She has a PMH of COPD, CKD, T2DM, bipolar disorder. PFSH <YADIRA Rajan - Last Filed: 11/04/24 15:04> PFSH Medical History History of echocardiogram Wears glasses Anxiety Depression Post-menopausal History of renal disease High cholesterol Back pain TIA (transient ischemic attack) Gastric reflux Smoker Shortness of breath on exertion History of pain when walking History of edema Cardiology follow-up encounter History of heart attack Chest pain History of left heart catheterization (LHC) (~12/30/20) CKD (chronic kidney disease) stage 3, GFR 30-59 ml/min Lung nodule COPD (chronic obstructive pulmonary disease) Paroxysmal atrial fibrillation Elevated liver enzymes Acute respiratory failure with hypoxia Stroke IBS (irritable bowel syndrome) Hyperlipidemia Heart disease Migraines Frequent headaches Gastrointestinal problem Diabetes History of back problems Asthma Arthritis Home Medications ?Medication ?Instructions ?Recorded ?Last Taken ?Type lovastatin 20 mg tablet 20 mg PO QDAY cholesterol 09/11/24 History ipratropium 0.5 mg-albuterol 3 mg 3 ml inhalation Q4HW A.RT PRN 09/07/21 09/08/24 Rx (2.5 mg base)/3 mL nebulization shortness of breath or wheezing #0 soln mL omega-3 fatty acids-fish oil 360 1 cap PO BID Joints 0 03/04/23 09/11/24 History mg-1,200 mg capsule (Fish Oil) omeprazole 40 mg capsule,delayed 40 mg PO DAILY Gerd 0 11/18/23 09/11/24 History release albuterol sulfate 90 mcg/actuation 1 puff inhalation Q 6H 30 days #8.5 09/21/24 Unknown Rx aerosol inhaler (Ventolin HFA) grams apixaban 5 mg tablet (Eliquis) 5 mg PO Q12H anticoagul ant 30 days 09/21/24 09/12/24 Rx #60 tabs aspirin 81 mg chewable tablet 81 mg PO BREAKFAST 30 da ys #30 tabs 09/21/24 Unknown Rx citalopram 10 mg tablet (Celexa) 10 mg PO DAILY depres lukas 30 days 09/21/24 09/11/24 Rx #30 tabs furosemide 20 mg tablet 20 mg PO BID Diuretic 30 day s #60 09/21/24 09/11/24 Rx tabs lorazepam 0.5 mg tablet (Ativan) 0.5 mg PO Q12H PRN An xiety 30 days 09/21/24 09/11/24 Rx #60 tabs quetiapine 200 mg tablet,extended 200 mg PO BID Bipola r 30 days #30 09/21/24 09/11/24 Rx release 24 hr tabs trazodone 100 mg tablet 200 mg (2 x 100 mg) PO QHS S leep 09/21/24 09/11/24 Rx 30 days #30 tabs Allergy/AdvReac Type Severity Reaction Status Date / Time Penicillins Allergy Intermediate Hives Verified 09/12/24 10:32 carbamazepine (From Tegretol) AdvReac Intermediate Nausea Verified 09/12/24 10:32 benztropine AdvReac Unknown Verified 09/12/24 10:32 diazepam (From Valium) AdvReac Other Verified 09/12/24 10:32 Sulfa (Sulfonamide AdvReac Nausea Verified 09/12/24 10:32 Antibiotics) thioridazine AdvReac Nausea Verified 09/12/24 10:32 thioridazine HCl (From AdvReac Other Verified 09/12/24 10:32 Mellaril) Family History Grandmother Cancer stomach Father Cancer lung Sister Breast cancer Surgical History Hx of surgical procedure History of carpal tunnel surgery History of elbow surgery H/O shoulder surgery H/O hand surgery H/O dilation and curettage Hx of cholecystectomy History of tonsillectomy Social History (Updated 11/04/24 @ 14:[address] Lauren Vela MD) household members: other details: Living in apt with friends, now moving out without home at discharge. housing: homeless Smoking Status: Heavy Smoker (>10/day) alcohol intake: never substance use type: does not use caffeine: Yes what type of physical activity do you participate in: walking seatbelt use: always do you feel safe at home: Yes ROS <YADIRA Rajan - Last Filed: 11/04/24 15:04> ROS ED Constitutional Constitutional ED: Denies chills or fever(s) Cardiovascular Cardiovascular: Denies chest pain Respiratory/Chest Respiratory/Chest: Denies dyspnea Gastrointestinal Gastrointestinal: Denies abdominal pain, nausea or vomiting Musculoskeletal Musculoskeletal: Reports arthralgias Integumentary Denies rash Neurologic Neurologic: Reports weakness EXAM <YADIRA Rajan - Last Filed: 11/04/24 15:04> Physical Exam Const Vital Signs: 11/04/24 12:30 11/04/24 14:30 11/04/24 14:54 Temperature 97.9 F 97.8 F Temperature Source Oral Pulse Rate 96 91 90 Respiratory Rate 20 H 16 16 Blood Pressure 89/57 L 95/78 95/78 Blood Pressure Mean 67 83 83 Pulse Ox 95 95 99 Oxygen Delivery Method Room Air Room Air 11/04/24 14:55 Temperature 97.8 F Temperature Source Oral Pulse Rate 93 Respiratory Rate 16 Blood Pressure 109/70 Blood Pressure Mean 83 Pulse Ox 96 Oxygen Delivery Method Room Air Positive well nourished, well developed and no apparent distress General Appearance ED: well developed HEENT Reports normocephalic, head/scalp atraumatic and dry mucous membranes Mouth ED: Yes dry mucous membranes Mouth: dry mucous membranes Eyes PERRL and EOMs intact bilaterally Neck full ROM and supple Chest Wall inspection of chest normal Resp normal respiratory effort and clear to auscultation bilaterally Cardio regular rate and regular rhythm GI soft to palpation, non-tender, non-distended and no masses Back/Spine normal ROM and normal to inspection Extremity normal to inspection and full ROM Neuro oriented x3, CN's II-XII intact bilaterally, moves all extremities, no focal motor deficits and no sensory deficits noted Sensorium / Orientation: awake and alert Psych mental status grossly normal and thought process normal Skin no rashes or lesions noted and no wounds <Dr. Issa Chapin MD - Last Filed: 11/04/24 15:15> Physical Exam Const Vital Signs: 11/04/24 12:30 11/04/24 14:30 11/04/24 14:54 Temperature 97.9 F 97.8 F Temperature Source Oral Pulse Rate 96 91 90 Respiratory Rate 20 H 16 16 Blood Pressure 89/57 L 95/78 95/78 Blood Pressure Mean 67 83 83 Pulse Ox 95 95 99 Oxygen Delivery Method Room Air Room Air 11/04/24 14:55 Temperature 97.8 F Temperature Source Oral Pulse Rate 93 Respiratory Rate 16 Blood Pressure 109/70 Blood Pressure Mean 83 Pulse Ox 96 Oxygen Delivery Method Room Air Sepsis Attestation <Dr. Issa Chapin MD - Last Filed: 11/04/24 15:15> Date exam was performed: 11/04/24 Time exam was performed: 13:49 Possible Source of Sepsis: Genitourinary Fluid Resuscitation Fluid resuscitation indicated?: Yes Fluid Resuscitation ordered: Lesser volume fluid bolus ordered Amount of fluid ordered: 1,000 Reason for lesser fluid bolus:: Renal Failure Sepsis Note Date exam was performed: 11/04/24 Time exam was performed: 14:17 Sepsis Attestation: Sepsis re-evaluation was performed Response to fluids: Fluid responsive hypotension (Patient responded to 1 L.) [facility] <YADIRA Rajan - Last Filed: 11/04/24 15:04> [facility] Narrative Medical decision making narrative: Patient presenting today with failure to thrive. She smell strongly of urine and has not had a bath in over 2 weeks. She does appear dry and has been given IV fluids. Initially her blood pressure was low at 89/57 but this did significantly improve after the IV fluids around 130 systolic. Labs were obtained, CBC unremarkable, BMP consistent with CKD with a creatinine of 1.48. UA is consistent with a UTI, urinary culture obtained and patient given IV Levaquin. Patient is not septic. Social work was consulted, she will be admitted for treatment of her UTI and probable placement to a SNF for rehab. I spoke with the hospitalist and patient admitted in stable condition. I have personally performed a face to face assessment of the patient and have reviewed the ASHELE Note. I performed a substantive portion of the visit including all aspects of the following. My roth findings include: History is remarkable for inability to care for herself. Patient smells of urine. Adriana stated she was lying on the floor unable to get up in her own urine uncertain whether there was feces as well. The person that tries to care for her is moving out of the house/unit she resides in. She has no one that lives locally. Patient believes she can go home. There is a past medical history of COPD with bronchospasm, peripheral vascular disease, hyperlipidemia, BMI of 47.1, type 2 diabetes, tardive dyskinesia, stage III kidney disease. She is not a good informant. She lacks insight. She believes she can go home. When asked how she was going to go home she states she contact her daughter. She wants to go the [facility]. She believes her daughter will come by every so often to check on her. Exam is vitals are marked for hypotension with a pressure 89/57. HEENT is remarkable dry mucosa. She is a dentulous. Patient smells of urine. HEENT is unremarkable with the dry mucosa. Lungs are clear to auscultation. Heart is regular. Rate is normal. There is no murmur, gallop or rub. Abdomen is flabby soft nontender. She is not oriented. Cranials 2 through 12 are intact. Moves all extremities. There is no clonus or Babinski sign noted. Medical Decision Making clinically patient is dehydrated and hypotensive. 1 L of normal saline was ordered. Appropriate blood work was obtained to assess renal function, electrolytes, H&H and rule out infectious cause as well. Patient will require admission for failure to thrive and inability to care for self at the minimum. Other additions or changes: [None] Lab Data Attestation: I reviewed the patient's lab results. Labs: Laboratory Results - last 24 hr 11/04/24 11/04/24 13:00 13:10 WBC 9.9 RBC 4.62 Hgb 14.4 Hct 43.9 MCV 95.0 MCH 31.2 MCHC 32.8 RDW Std Deviation 46.8 H RDW Coeff of Robert 13.2 Plt Count 261 MPV 10.3 Immature Gran % (Auto) 0.200 Neut % (Auto) 70.2 H Lymph % (Auto) 19.2 Pope % (Auto) 7.3 Eos % (Auto) 2.9 Baso % (Auto) 0.2 Absolute Neuts (auto) 6.9 Absolute Lymphs (auto) 1.90 Nucleated RBC % 0 Sodium 142 Potassium 3.7 Chloride 105 Carbon Dioxide 26.2 Anion Gap 11 BUN 13 Creatinine 1.48 H Estim Creat Clear Calc 47.80 L Est GFR (MDRD) Non-Af 40 L BUN/Creatinine Ratio 8.9 L Glucose 117 H Calcium 9.3 Phosphorus 4.0 Magnesium 1.9 Urine Color Yellow Urine Clarity Sl. Cloudy Urine pH 5.0 Ur Specific [place] 1.020 Urine Protein 15 H Urine Glucose (UA) Normal Urine Ketones Negative Urine Occult Blood 50 H Urine Nitrite Positive H Urine Bilirubin Negative Urine Urobilinogen 1 H Ur Leukocyte Esterase 500 H Urine RBC 0 SEEN Urine WBC 25-50 SEEN Ur Squamous Epith Cells 0 SEEN Urine Bacteria 3+ Urine Mucus 0 SEEN <Dr. Issa Chapin MD - Last Filed: 11/04/24 15:15> MDM MDM Narrative Medical decision making narrative: I have personally performed a face to face assessment of the patient and have reviewed the ASHLEE Note. I performed a substantive portion of the visit including all aspects of the following. My roth findings include: History is remarkable for inability to care for herself. Patient smells of urine. Squad stated she was lying on the floor unable to get up in her own urine uncertain whether there was feces as well. The person that tries to care for her is moving out of the house/unit she resides in. She has no one that lives locally. Patient believes she can go home. There is a past medical history of COPD with bronchospasm, peripheral vascular disease, hyperlipidemia, BMI of 47.1, type 2 diabetes, tardive dyskinesia, stage III kidney disease. She is not a good informant. She lacks insight. She believes she can go home. When asked how she was going to go home she states she contact her daughter. She wants to go the [facility] [place]. She believes her daughter will come by every so often to check on her. Exam is vitals are marked for hypotension with a pressure 89/57. HEENT is remarkable dry mucosa. She is a dentulous. Patient smells of urine. HEENT is unremarkable with the dry mucosa. Lungs are clear to auscultation. Heart is regular. Rate is normal. There is no murmur, gallop or rub. Abdomen is flabby soft nontender. She is not oriented. Cranials 2 through 12 are intact. Moves all extremities. There is no clonus or Babinski sign noted. Medical Decision Making clinically patient is dehydrated and hypotensive. 1 L of normal saline was ordered. Appropriate blood work was obtained to assess renal function, electrolytes, H&H and rule out infectious cause as well. Patient will require admission for failure to thrive and inability to care for self at the minimum. Other additions or changes: [None] Lab Data Labs: Laboratory Results - last 24 hr 11/04/24 11/04/24 13:00 13:10 WBC 9.9 RBC 4.62 Hgb 14.4 Hct 43.9 MCV 95.0 MCH 31.2 MCHC 32.8 RDW Std Deviation 46.8 H RDW Coeff of Robert 13.2 Plt Count 261 MPV 10.3 Immature Gran % (Auto) 0.200 Neut % (Auto) 70.2 H Lymph % (Auto) 19.2 Pope % (Auto) 7.3 Eos % (Auto) 2.9 Baso % (Auto) 0.2 Absolute Neuts (auto) 6.9 Absolute Lymphs (auto) 1.90 Nucleated RBC % 0 Sodium 142 Potassium 3.7 Chloride 105 Carbon Dioxide 26.2 Anion Gap 11 BUN 13 Creatinine 1.48 H Estim Creat Clear Calc 47.80 L Est GFR (MDRD) Non-Af 40 L BUN/Creatinine Ratio 8.9 L Glucose 117 H Calcium 9.3 Phosphorus 4.0 Magnesium 1.9 Urine Color Yellow Urine Clarity Sl. Cloudy Urine pH 5.0 Ur Specific [place] 1.020 Urine Protein 15 H Urine Glucose (UA) Normal Urine Ketones Negative Urine Occult Blood 50 H Urine Nitrite Positive H Urine Bilirubin Negative Urine Urobilinogen 1 H Ur Leukocyte Esterase 500 H Urine RBC 0 SEEN Urine WBC 25-50 SEEN Ur Squamous Epith Cells 0 SEEN Urine Bacteria 3+ Urine Mucus 0 SEEN Management Discussion w/another healthcare provider: Hospitalist (Patient discussed with Dr. Vela. She admitted patient.) Discharge Plan Dx/Rx/DC Orders Clinical Impression: Urinary tract infection, DM (diabetes mellitus), type 2, Obesity, morbid, BMI 40.0-49.9, Acute hypotension, Acute alteration in mental status, 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 mellitus, Acute hyperglycemia Disposition Disposition: Acute Care Hospital [facility]
[2024-11-04 13:18] LABS: Absolute Neutrophil Count 6.9 X10^3/uL (2.0-7.7); Basophil# 0.02 X10^3/uL; Basophil% 0.2 % (0-1); Eosinophil# 0.29 X10^3/uL; Eosinophils% 2.9 % (0-5); Hematocrit 43.9 % (37-47); Hemoglobin 14.4 g/dL (12.0-15.0); Lymphocyte % 19.2 % (19-41); Mean Corp Hgb Conc 32.8 g/dL (32-36); Mean Corpuscular Hgb 31.2 pg (27.0-32.0); Mean Platelet Vol. 10.3 fl (6.2-12.0); Monocyte# 0.72 X10^3/uL; Monocyte% 7.3 % (0-10); NRBC Flagged by Analyzer 0 % (0-5); Neutrophil # 6.93 X10^3/uL (2.7-7.7); Neutrophil % 70.2 % (47-70); Platelet Count 261 K/mm3 (150-450); RBC Distribution Width CV 13.2 % (11.6-14.6); RBC Distribution Width SD 46.8 fl (35.1-43.9); Red Blood Count 4.62 M/mm3 (4.2-5.4); White Blood Count 9.9 K/mm3 (4.4-11.0)
[2024-11-04] MEDS: 0.9% Normal Saline (1000mL) 1,000 ML 999 ML IV (13:23)
[2024-11-04 13:32] LABS: Anion Gap 11 (5-15); BUN 13 mg/dL (4-19); BUN/Creat Ratio 8.9 RATIO (10-20); Calcium,Total 9.3 mg/dL (7.6-11.0); Carbon Dioxide 26.2 mmol/L (21.0-32.0); Chloride 105 mmol/L (98-108); Creatinine, Serum 1.48 mg/dL (0.70-1.20); EST Glomerular Filtration Rate 40 (>60); Glucose 117 mg/dL (70-99); Potassium 3.7 mmol/L (3.3-5.1); Sodium Level 142 mmol/L (133-145)
[2024-11-04 13:36] LABS: Mucous, Urine 0 SEEN /hpf (<or=2+); Red Blood Cells-Urine 0 SEEN /hpf (0-5); Squamous Epithelial Cells - UA 0 SEEN /hpf (5-10)
[2024-11-04 13:38] LABS: Color, Urine Yellow (Yellow); Glucose, Dipstick Normal (Normal); Ketone-Dipstick Negative (Negative); Leukocyte Esterase-Dipstick 500 /ul (Negative); Nitrite-Dipstick Positive (Negative); Occult Blood-Urine 50 /ul (Negative); Protein-Dipstick 15 mg/dl (Negative); Urine Bilirubin Dipstick Negative (Negative); Urine Clarity Sl. Cloudy (Clear); Urine Urobilinogen 1 mg/dl (Normal)
[2024-11-04 13:46] LABS: Bacteria 3+ /hpf (None Seen); White Blood Cells 25-50 SEEN /hpf (0-5)
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
--- NOTE | 2024-11-04 14:29 | HP.PCM.HOS_ITS ---
HPI - General General Date of Service: 11/04/24 Chief Complaint: Debility, weakness, adult FTT HPI Narrative The patient is a 64 y/o F w/ PMHx: Diabetes mellitus type II, COPD/Asthma, CKD stage III unclear subtype per GFR trending, PAF, HTN, HLD, Anxiety and Depression/bipolar disorder, Tobacco use, Morbid obesity, GERD who presents to the [facility] ED on 11/04/2024 with history of myriad of complaints noting that she is currently living with a friend who are moving out of the house that they have been staying at and she does not have a place to stay unable to care for herself noting significant weakness and debility over the last several weeks with difficulty walking because of her weakness with inability to even bathe with or maintain appropriate hygiene prompting eventual transition to the ED to assure evaluation and care. She does report increased urinary frequency, mild suprapubic discomfort and dysuria. She notes she has been incontinent but a big part of this she notes that she cannot really function to get to the restroom. Workup in the ED included T97.9, heart rate 96, BP 89/57, respiratory rate 20, 95% room air, CBC with WC 9.9, hemoglobin 14.4, platelets 261 without shift, BMP with BUN/creatinine 13/1.48, GFR 40, glucose 117, urinalysis with cloudy appearing urine, specific gravity mildly elevated 1.020, protein 15, occult blood 50, positive nitrate, leukocyte Estrace 500 with urine WBCs 25-50 with 3+ urine bacteria, urine culture pending per ED, blood culture pending per ED. From review of cultures very remotely in 2017 patient had an E. coli greater than 100,000 culture which was pansensitive and in 2014 had a Klebsiella pneumonia greater than 100,000 that was resistant only to ampicillin otherwise pansensitive. In the ED patient administered 1 L normal saline as well as Levaquin 750 mg IV x 1. [facility] History History of echocardiogram Wears glasses Anxiety Depression Post-menopausal History of renal disease High cholesterol Back pain TIA (transient ischemic attack) Gastric reflux Smoker Shortness of breath on exertion History of pain when walking History of edema Cardiology follow-up encounter History of heart attack Chest pain History of left heart catheterization (LHC) (~12/30/20) CKD (chronic kidney disease) stage 3, GFR 30-59 ml/min Lung nodule COPD (chronic obstructive pulmonary disease) Paroxysmal atrial fibrillation Elevated liver enzymes Acute respiratory failure with hypoxia Stroke IBS (irritable bowel syndrome) Hyperlipidemia Heart disease Migraines Frequent headaches Gastrointestinal problem Diabetes History of back problems Asthma Arthritis Home Medications ?Medication ?Instructions ?Recorded ?Last Taken ?Type lovastatin 20 mg tablet 20 mg PO QDAY cholesterol 09/11/24 History ipratropium 0.5 mg-albuterol 3 mg 3 ml inhalation Q4HW A.RT PRN 09/07/21 09/08/24 Rx (2.5 mg base)/3 mL nebulization shortness of breath or wheezing #0 soln mL omega-3 fatty acids-fish oil 360 1 cap PO BID Joints 0 03/04/23 09/11/24 History mg-1,200 mg capsule (Fish Oil) omeprazole 40 mg capsule,delayed 40 mg PO DAILY Gerd 0 11/18/23 09/11/24 History release albuterol sulfate 90 mcg/actuation 1 puff inhalation Q 6H 30 days #8.5 09/21/24 Unknown Rx aerosol inhaler (Ventolin HFA) grams apixaban 5 mg tablet (Eliquis) 5 mg PO Q12H anticoagul ant 30 days 09/21/24 09/12/24 Rx #60 tabs aspirin 81 mg chewable tablet 81 mg PO BREAKFAST 30 da ys #30 tabs 09/21/24 Unknown Rx citalopram 10 mg tablet (Celexa) 10 mg PO DAILY depres lukas 30 days 09/21/24 09/11/24 Rx #30 tabs furosemide 20 mg tablet 20 mg PO BID Diuretic 30 day s #60 09/21/24 09/11/24 Rx tabs lorazepam 0.5 mg tablet (Ativan) 0.5 mg PO Q12H PRN An xiety 30 days 09/21/24 09/11/24 Rx #60 tabs quetiapine 200 mg tablet,extended 200 mg PO BID Bipola r 30 days #30 09/21/24 09/11/24 Rx release 24 hr tabs trazodone 100 mg tablet 200 mg (2 x 100 mg) PO QHS S leep 09/21/24 09/11/24 Rx 30 days #30 tabs Allergy/AdvReac Type Severity Reaction Status Date / Time Penicillins Allergy Intermediate Hives Verified 09/12/24 10:32 carbamazepine (From Tegretol) AdvReac Intermediate Nausea Verified 09/12/24 10:32 benztropine AdvReac Unknown Verified 09/12/24 10:32 diazepam (From Valium) AdvReac Other Verified 09/12/24 10:32 Sulfa (Sulfonamide AdvReac Nausea Verified 09/12/24 10:32 Antibiotics) thioridazine AdvReac Nausea Verified 09/12/24 10:32 thioridazine HCl (From AdvReac Other Verified 09/12/24 10:32 Mellaril) Family History Grandmother Cancer stomach Father Cancer lung Sister Breast cancer Surgical History Hx of surgical procedure History of carpal tunnel surgery History of elbow surgery H/O shoulder surgery H/O hand surgery H/O dilation and curettage Hx of cholecystectomy History of tonsillectomy Social History (Updated 11/04/24 @ 14:[address] Lauren Vela MD) household members: other details: Living in apt with friends, now moving out without home at discharge. housing: homeless Smoking Status: Heavy Smoker (>10/day) alcohol intake: never substance use type: does not use caffeine: Yes what type of physical activity do you participate in: walking seatbelt use: always do you feel safe at home: Yes ROS ROS Narrative Admission Review of Systems: CONSTITUTIONAL: No weight loss, fever, chills, + weakness or fatigue. HEENT: Eyes: No visual loss, blurred vision, double vision or yellow sclerae. Ears, Nose, Throat: No hearing loss, sneezing, congestion, runny nose or sore throat. SKIN: No rash or itching, lesions except significant + intertrigo, very staged ecchymoses, abrasion. CARDIOVASCULAR: No chest pain, chest pressure or chest discomfort, palpitations, edema, orthopnea, syncopal events. RESPIRATORY: + Chronic dyspnea, occasional cough, occasional wheezing. No current marked productive sputum, hemoptysis. GASTROINTESTINAL: No anorexia, nausea, vomiting or diarrhea, abdominal pain, melena, BRBPR. GENITOURINARY: + Dysuria, frequency, incontinence, suprapubic discomfort. No retention. NEUROLOGICAL: + Diffuse debilitating weakness, unable to ambulate well. No headache, dizziness, syncope, paralysis, ataxia, numbness or tingling in the extremities, focal weakness, change in bowel or bladder control, seizure. MUSCULOSKELETAL: + muscle, back pain, joint pain or stiffness. HEMATOLOGIC: No anemia, bleeding or bruising. LYMPHATICS: No enlarged nodes. No history of splenectomy. PSYCHIATRIC: + History of anxiety and depression/bipolar disorder. ENDOCRINOLOGIC: No reports of sweating, cold or heat intolerance. No polyuria or polydipsia. ALLERGIES: + History of asthma, hives, allergic rhinitis. Vital Signs Vital Signs Vital Signs: 11/04/24 12:30 Temperature 97.9 F Temperature Source Oral Pulse Rate 96 Respiratory Rate 20 H Blood Pressure 89/57 L Blood Pressure Mean 67 Pulse Ox 95 Oxygen Delivery Method Room Air Weight Weight: 257 lb 11.526 oz Body Mass Index (BMI) 47.1 Physical Exam Narrative Physical Examination: General: Awake, alert, oriented x 3 and cooperative, laying in ED bed, tearful with discussions about recent situations, homelessness status. Skin: Normal color, normal turgor, no icterus, no cyanosis except occasional stage ecchymoses, abrasion, notable intertrigo especially groin folds. HEENT: AT/NC, EOMI, PERRLA, moderately dry MM, mild thrush evident, no carotid bruits or JVD noted. Lungs: Diminished, greater bases, distant likely secondary to habitus, no evidence of distress, no rales, ronchi or wheezing. Heart: Regular rate and rhythm; no gallop, rub audible. Abdomen: Soft, morbidly obese, NTTP except mild discomfort with suprapubic palpation, distant BS, difficult to discern distention and HSM given habitus ND, normal BS, no HSM. Extremities: No cyanosis, no clubbing, no marked distal pitting edema. Neurological: Patient awake, alert, oriented as noted, cognitive function intact; pupils equally reactive to light and accommodation, cranial nerves gross normal, moving all 4 extremities, strength severely globally decreased Psychiatric: Affect appears fatigued, tearful with discussions, does have underlying anxiety and depression/bipolar disorder. Results Lab / Micro Data 11/04/24 13:10 11/04/24 13:10 Labs: Laboratory Results - last 24 hr 11/04/24 13:00: Urine Color Yellow, Urine Clarity Sl. Cloudy, Urine pH 5.0, Ur Specific [place] 1.020, Urine Protein 15 H, Urine Glucose (UA) Normal, Urine Ketones Negative, Urine Occult Blood 50 H, Urine Nitrite Positive H, Urine Bilirubin Negative, Urine Urobilinogen 1 H, Ur Leukocyte Esterase 500 H, Urine RBC 0 SEEN, Urine WBC 25-50 SEEN, Ur Squamous Epith Cells 0 SEEN, Urine Bacteria 3+, Urine Mucus 0 SEEN 11/04/24 13:10: WBC 9.9, RBC 4.62, Hgb 14.4, Hct 43.9, MCV 95.0, MCH 31.2, MCHC 32.8, RDW Std Deviation 46.8 H, RDW Coeff of Robert 13.2, Plt Count 261, MPV 10.3, Immature Gran % (Auto) 0.200, Neut % (Auto) 70.2 H, Lymph % (Auto) 19.2, [place] % (Auto) 7.3, Eos % (Auto) 2.9, Baso % (Auto) 0.2, Absolute Neuts (auto) 6.9, Absolute Lymphs (auto) 1.90, Nucleated RBC % 0, Sodium 142, Potassium 3.7, Chloride 105, Carbon Dioxide 26.2, Anion Gap 11, BUN 13, Creatinine 1.48 H, E stim Creat Clear Calc 47.80 L, Est GFR (MDRD) Non-Af 40 L, BUN/Creatinine Ratio 8.9 L, Glucose 117 H, Calcium 9.3 Assessment & Plan Assessment/Plan (1) Urinary tract infection: PLAN: Plan The patient is a 64 y/o F w/ PMHx: Diabetes mellitus type II, COPD/Asthma, CKD stage III unclear subtype per GFR trending, PAF, HTN, HLD, Anxiety and Depression/bipolar disorder, Tobacco use, Morbid obesity, GERD who presents to the [facility] ED on 11/04/2024 with history of myriad of complaints noting that she is currently living with a friend who are moving out of the house that they have been staying at and she does not have a place to stay unable to care for herself noting significant weakness and debility over the last several weeks with difficulty walking because of her weakness with inability to even bathe with or maintain appropriate hygiene prompting eventual transition to the ED to assure evaluation and care. #1. Acute Debility, Adult FTT secondary to Acute Complicated Urinary Tract Infection with high risk for fall, inability to care for self, suspect skilled needs: Will admit to [facility] upon ED evaluation remarkable, pending UCx, will give additional IV fluid bolus and continue due to IVFs, monitor I/Os, continue IV Rocephin w/ transition as able pending sensitivities and speciation. Bld cx x 2 obtained in the ED. PT/OT/case management consult for discharge planning with skilled facility needs at this time apparent. #2. Diabetes mellitus type II: Noted history, per current list does not appear to be on regimen, clarifying, hemoglobin A1c requested, maintain on in the interim ADA diet, accu checks w/ ISS. #3. Chronic COPD/asthma: Will temporally hold home inhalers in the interim placed on ATC budesonide therapy, PRN albuterol, HOB, IS parameters. Will also start oral nystatin swish and swallow for suspected mild thrush on examination suspected likely secondary to usage of her inhalers without rinsing her mouth. #4. Chronic Kidney Disease Stage III, unclear subtype per GFR trend: Admission BUN/Cr 13/1.48, GFR 40, baseline renal function primarily 1.3-1.4, repeat BMP in AM. #5. PAF: Per current list does not appear to be on rate or rhythm agent, will continue patient home Eliquis regimen #6. Hypertension: Given low BP upon presentation we will continue to hydrate, temporally hold Lasix, add back once clinically appropriate. PRN hydralazine. #7. Hyperlipidemia: Will continue patient on statin therapy. #8. Anxiety and depression/bipolar disorder: Will continue patient home trazodone, Seroquel, low-dose as needed lorazepam and Celexa regimen with hold for sedation as needed. #9. Tobacco Abuse: Encouraged cessation, inpatient consultation per RT, NR if desired. #10. Morbid Obesity: Weight loss and lifestyle changes encouraged. #11. GERD: Working patient on PPI. #12. Homelessness: Patient had previously been living in a trailer with her family and then transition to an apartment with friends but unfortunately they are moving out and she currently has no home at discharge, high risk for nonadherence to treatment and subsequent increased risk for complications and readmission, not clinically appropriate for consideration for long-term. #13. DVT prophylaxis: Will continue patient home Eliquis regimen. #14. CODE status: Patient does not have healthcare power of corporate associate attorney or living will in place but she specifically notes she would want her niece Felecia to be her medical decision-maker if necessary. She does have daughters but she does specifically state that she wants her niece to be the decision-maker if it was necessary not her children. Discussed CODE status at length including difference between FULL code, DNR-CCA and DNR-CC status. Following discussions about the differences in these status, requested Full Code status. Advanced Care Planning Face to Face Time: 16 minutes. Charges/Coding Visit Charges Inpatient E&M: 74248 Init Hosp L3 Procedures Hospitalists Procedures: 32549 Advncd Care Plan 30 Min
[2024-11-04] MEDS: levoFLOXacin IV 750 MG/150 ML BAG 100 MG IV (14:44)
[2024-11-04 15:06] LABS: Magnesium 1.9 mg/dL (1.5-2.2)
[2024-11-04] MEDS: 0.9% Normal Saline (1000mL) 1,000 ML 100 ML IV (17:05)
[2024-11-04] MEDS: Menthol/Lanolin/Calamine/Znox 113 GM Tube 1 APPLIC TOPICAL ×2 (17:06→20:40)
[2024-11-04] MEDS: Nystatin Powder 15gm Bottle 1 APPLIC TOPICAL ×2 (17:07→20:40)
[2024-11-04] MEDS: APIXABAN 5 MG TABLET PO (17:08)
[2024-11-04] MEDS: NYSTATIN 500,000 UNIT/5 ML UDC 500000 UNIT PO ×2 (17:08→20:42)
[2024-11-04 17:37] LABS: Bedside Glucose 94 mg/dL (74-106)
[2024-11-04] MEDS: Budesonide Respules 0.5 MG/2 ML AMPUL.NEB. INHALATION (19:45)
[2024-11-04] MEDS: traZODone 100 MG Tablet 200 MG PO (20:41)
--- NOTE | 2024-11-04 21:16 | CM.ED ---
Social Work: worker's compensation claims examiner made a referral to APS due to all concerns outlined in completed assessment. Kelsie Lundberg, PHYSICIAN OFFICE SPECIALIST, ABA THERAPIST
[2024-11-04 21:42] LABS: Bedside Glucose 114 mg/dL (74-106)
[2024-11-04] MEDS: LORazepam 0.5 MG Tablet PO (22:26)
[2024-11-05] VITALS (9 sets, daily range): BP systolic 104–126; BP diastolic 48–69; PULSE 76–88; RESP 16–18; TEMP 36.6–36.8; O2SAT 91–95; BMI 46.3
[2024-11-05] MEDS: Albuterol 2.5 MG/3 ML VIAL.NEB. INHALATION (02:13)
[2024-11-05] MEDS: Nystatin Powder 15gm Bottle 1 APPLIC TOPICAL ×3 (06:22→21:33)
[2024-11-05] MEDS: Budesonide Respules 0.5 MG/2 ML AMPUL.NEB. INHALATION ×2 (06:43→19:25)
[2024-11-05 07:01] LABS: Bedside Glucose 103 mg/dL (74-106)
[2024-11-05 07:38] LABS: Absolute Lymphocyte Count 2.47 X10^3/uL (0.83-4.51); Absolute Neutrophil Count 4.3 X10^3/uL (2.0-7.7); Basophil# 0.02 X10^3/uL; Basophil% 0.3 % (0-1); Eosinophil# 0.38 X10^3/uL; Eosinophils% 4.9 % (0-5); Hematocrit 38.7 % (37-47); Hemoglobin 12.4 g/dL (12.0-15.0); Lymphocyte # 2.47 X10^3/ul (0.83-4.51); Lymphocyte % 31.5 % (19-41); Mean Corpuscular Hgb 30.7 pg (27.0-32.0); Mean Corpuscular Volume 95.8 fL (81-99); Mean Platelet Vol. 10.8 fl (6.2-12.0); Monocyte# 0.69 X10^3/uL; Monocyte% 8.8 % (0-10); NRBC Flagged by Analyzer 0 % (0-5); Neutrophil # 4.25 X10^3/uL (2.7-7.7); Neutrophil % 54.2 % (47-70); Platelet Count 243 K/mm3 (150-450); RBC Distribution Width CV 13.3 % (11.6-14.6); RBC Distribution Width SD 47.1 fl (35.1-43.9); Red Blood Count 4.04 M/mm3 (4.2-5.4); White Blood Count 7.8 K/mm3 (4.4-11.0)
[2024-11-05 08:07] LABS: ALB/GLOB Ratio 1.2 RATIO (0.9-2.4); AST(SGOT) 19 U/L (<=31); Alanine Aminotransfer ALT/SGPT 12 U/L (<=34); Albumin, Serum 3.3 g/dL (3.4-4.8); Alkaline Phosphatase 65 U/L (35-104); Anion Gap 12 (5-15); BUN 15 mg/dL (4-19); BUN/Creat Ratio 10.6 RATIO (10-20); Calcium,Total 8.7 mg/dL (7.6-11.0); Carbon Dioxide 21.1 mmol/L (21.0-32.0); Chloride 107 mmol/L (98-108); Creatinine, Serum 1.37 mg/dL (0.70-1.20); EST Glomerular Filtration Rate 44 (>60); Estimated Creatinine Clearance 50.91 ml/min (50-250); Globulin 2.7 g/dL (2.2-4.2); Glucose 96 mg/dL (70-99); Potassium 3.4 mmol/L (3.3-5.1); Sodium Level 140 mmol/L (133-145); Total Bilirubin 0.73 mg/dL (0.00-1.30)
[2024-11-05] MEDS: Acetaminophen 325 MG Tablet 650 MG PO (08:19)
[2024-11-05] MEDS: APIXABAN 5 MG TABLET PO ×2 (09:34→21:33)
[2024-11-05] MEDS: Citalopram 10 MG Tablet PO (09:34)
[2024-11-05] MEDS: Atorvastatin Calcium 10 MG Tablet 5 MG PO (09:34)
[2024-11-05] MEDS: Pantoprazole Sodium 40 MG Tablet PO (09:35)
[2024-11-05] MEDS: NYSTATIN 500,000 UNIT/5 ML UDC 500000 UNIT PO ×4 (09:35→21:33)
[2024-11-05] MEDS: Ceftriaxone 1 GM/50 ML BAG IV (09:37)
[2024-11-05] MEDS: Menthol/Lanolin/Calamine/Znox 113 GM Tube 1 APPLIC TOPICAL ×2 (09:37→13:03)
[2024-11-05 11:31] LABS: Bedside Glucose 120 mg/dL (74-106)
--- NOTE | 2024-11-05 12:29 | CASEMGMT ---
Social Work SW received call from Eduard with APS due to a referral that was placed over the weekend. Eduard stated that she currently has an active case with patient. Eduard asked that a SW call her back if patient is discharged back to the community after her hospital stay. Lorena Tovar, MANAGER OF SCHOOL, CASE OPERATOR
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
[2024-11-05] MEDS: MENTHOL 226.8 GM JAR 1 APPLIC TOPICAL (15:34)
--- NOTE | 2024-11-05 15:38 | CASEMGMT ---
Addendum entered by Hannah Whiting 11/06/24 15:20: [facility] declined d/t capacity. SW updated. Hannah Whiting DC Planning Asst. Original Note: Discharge Planning Referral sent to [facility]. Hannah Whiting DC Planning Asst.
--- NOTE | 2024-11-05 15:45 | CASEMGMT ---
Addendum entered by Bren Hughes 11/05/24 16:00: ANGI completed referral to [facility] per pt request. BILL Roland Original Note: Social Work- SW met with pt to conduct SDOH. Pt provided with resources as outlined in assessment. ANGI discussed pt needs at discharge. Pt is open to discharge for skilled therapy but will not discharge to a traditional SNF. Pt is open to TCUs. Pt agreeable to referral to [facility]. ANGI notified DCA of request. ANGI remains available to follow. BILL Roland
[2024-11-05 16:32] LABS: Bedside Glucose 111 mg/dL (74-106)
--- NOTE | 2024-11-05 17:41 | PCM.PN.HOSP ---
Reason for Visit Reason for Visit: Diagnoses Urinary tract infection, site not specified (11/04/24) Subjective Subjective Patient was seen and examined today, she voices complaints of back pain and requests topical analgesic cream be ordered for her. Patient was admitted after she became weak at a friend's house and was unable to care for herself, it appears that the friend is moving and patient will not have a residence to live at. Objective Data Objective Data Vital Signs: Vital Signs Temp Pulse Resp BP Pulse Ox O2 Del Method 97.8 F 83 16 105/64 93 Room Air 11/05/24 15:00 11/05/24 15:00 11/05/24 15:00 11/05/24 15:00 11/05/24 15:00 11/05/24 15:00 Oxygen Delivery Method Room Air Weight: 114.2 kg Body Mass Index (BMI) 46.3 Intake & Output: Intake and Output for Last 24 Hours 11/03/24 11/04/24 11/05/24 23:59 23:59 23:59 Intake Total 1330 / 1330 1950 / 1950 Balance 1330 / 1330 1950 / 1950 Lab / Micro Data 11/05/24 06:50 11/05/24 06:50 Labs: Laboratory Results - last 24 hr 11/04/24 20:39: POC Glucose 114 H 11/05/24 06:18: POC Glucose 103 11/05/24 06:50: WBC 7.8, RBC 4.04 L, Hgb 12.4, Hct 38.7, MCV 95.8, MCH 30.7, MCHC 32.0, RDW Std Deviation 47.1 H, RDW Coeff of Robert 13.3, Plt Count 243, MPV 10.8, Immature Gran % (Auto) 0.300, Neut % (Auto) 54.2, Lymph % (Auto) 31.5, Dane % (Auto) 8.8, Eos % (Auto) 4.9, Baso % (Auto) 0.3, Absolute Neuts (auto) 4.3, Absolute Lymphs (auto) 2.47, Nucleated RBC % 0, Sodium 140, Potassium 3.4, Chloride 107, Carbon Dioxide 21.1, Anion Gap 12, BUN 15, Creatinine 1.37 H, Estim Creat Clear Calc 50.91, Est GFR (MDRD) Non-Af 44 L, BUN/Creatinine Ratio 10.6, Glucose 96, Hemoglobin A1c 6.0 H, Calcium 8.7, Total Bilirubin 0.73, AST 19, ALT 12, Alkaline Phosphatase 65, Total Protein 6.0, Albumin 3.3 L, Globulin 2.7, Albumin/Globulin Ratio 1.2 11/05/24 11:08: POC Glucose 120 H 11/05/24 16:12: POC Glucose 111 H Micro: Microbiology 11/04/24 13:00 Urine, Clean Catch Urine Culture - Preliminary GNR lactose slaughterer 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 Physical Exam Const alert, oriented x3 and no apparent distress Constitutional Narrative: Patient has class III obesity General Appearance: cooperative and well developed Orientation / Consciousness: awake, oriented to person, oriented to place and oriented to time HEENT normocephalic, head/scalp atraumatic and moist oral mucous membranes Eyes PERRL, EOMs intact bilaterally and conjunctivae normal Neck supple, no JVD, thyroid normal and no carotid bruits General: trachea midline Resp normal respiratory effort, no retractions, no use of accessory muscles and clear to auscultation bilaterally Auscultation: Negative for rales, rhonchi or wheezes Cardio regular rate, regular rhythm, S1 normal heart sound, S2 normal heart sound, no murmurs, no rub and no gallops GI normal to inspection, nondistended, normoactive bowel sounds, soft to palpation, non-tender and non-distended Extremity no clubbing, cyanosis or edema Skin no rashes or lesions noted General Skin Exam: no breakdown Neuro oriented x3, CN's II-XII intact bilaterally, moves all extremities, no focal motor deficits and no sensory deficits noted Sensorium / Orientation: awake and alert Speech: speech normal Psych affect normal Assessment & Plan Assessment/Plan (1) Urinary tract infection: PLAN: Plan 1. Acute cystitis-patient will remain on IV Rocephin at this time, final culture results are pending at this time #2 acute on chronic debility secondary to multiple medical problems including bipolar disorder, type 2 diabetes, morbid obesity, and chronic obstructive pulmonary disease with a backdrop of acute cystitis-PT and OT will continue to work with the patient, she will need placement in a snf facility for at least short-term rehab services. #3 type 2 diabetes-patient's blood sugars will be monitored and sliding scale insulin will be administered as needed #4 morbid obesity-complicates care, management, recovery, and prognosis #5 chronic kidney disease stage IIIb secondary to type 2 diabetes-complicates care, management, recovery, and prognosis Total clinical time spent by myself addressing the patient's medical issues, reviewing all of her data, and collaborating with patient's care team: 35 minutes Charges/Coding Visit Charges Inpatient E&M: 69034 Subs Hosp L2
[2024-11-05] MEDS: traZODone 100 MG Tablet 200 MG PO (21:33)
--- NOTE | 2024-11-05 22:19 | NURSING ---
Pt called out asking for ativan PRN; pt anxious and when this RN entered room pt mobile phone ringing. Pt stated, Stop calling me! I know it's fake. Lele Herr is calling me asking for more money. I already have sent him $100.00 and he keeps messaging me and calling me wanting me to give him more. I just can't do it no more. Pt phone starts ding again. Pt stated, Ugh, now Kahlil Bradley is messaging me. Pt turned phone off and asked this RN to plug into charging station.
[2024-11-05] MEDS: LORazepam 0.5 MG Tablet PO (22:20)
[2024-11-05 22:33] LABS: Bedside Glucose 101 mg/dL (74-106)
[2024-11-06] VITALS (8 sets, daily range): BP systolic 102–113; BP diastolic 52–94; PULSE 65–84; RESP 16–20; TEMP 36.4–36.6; O2SAT 90–100; BMI 48.2
[2024-11-06] MEDS: Nystatin Powder 15gm Bottle 1 APPLIC TOPICAL ×3 (06:33→21:32)
[2024-11-06 06:53] LABS: Bedside Glucose 104 mg/dL (74-106)
[2024-11-06] MEDS: Budesonide Respules 0.5 MG/2 ML AMPUL.NEB. INHALATION ×2 (07:59→19:56)
[2024-11-06] MEDS: Atorvastatin Calcium 10 MG Tablet 5 MG PO (09:36)
[2024-11-06] MEDS: Citalopram 10 MG Tablet PO (09:36)
[2024-11-06] MEDS: APIXABAN 5 MG TABLET PO ×2 (09:36→21:32)
[2024-11-06] MEDS: NYSTATIN 500,000 UNIT/5 ML UDC 500000 UNIT PO ×4 (09:37→21:34)
[2024-11-06] MEDS: Pantoprazole Sodium 40 MG Tablet PO (09:37)
[2024-11-06] MEDS: Ceftriaxone 1 GM/50 ML BAG IV (09:44)
[2024-11-06] MEDS: 0.9% Saline Lock 10 ML Syringe IV ×2 (09:52→21:30)
[2024-11-06] MEDS: QUEtiapine 100 MG Tablet PO ×2 (10:39→16:15)
[2024-11-06 11:56] LABS: Bedside Glucose 124 mg/dL (74-106)
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
--- NOTE | 2024-11-06 15:55 | PCM.PN.HOSP ---
Reason for Visit Reason for Visit: Diagnoses Urinary tract infection, site not specified (11/04/24) Subjective Subjective Patient was seen and examined today, she voices no complaints, urine culture grew out Klebsiella pneumoniae, I switched her antibiotics from IV Rocephin to oral Keflex. Objective Data Objective Data Vital Signs: Vital Signs Temp Pulse Resp BP Pulse Ox O2 Del Method 97.6 F L 71 16 102/55 L 90 Room Air 11/06/24 09:26 11/06/24 09:26 11/06/24 09:26 11/06/24 09:26 11/06/24 15:27 11/06/24 09:33 Oxygen Delivery Method Room Air Weight: 118.9 kg Body Mass Index (BMI) 48.2 Intake & Output: Intake and Output for Last 24 Hours 11/04/24 11/05/24 11/06/24 23:59 23:59 23:59 Intake Total 1330 / 1330 2250 / 2250 750 / 750 Output Total 300 / 300 Balance 1330 / 1330 2250 / 2250 450 / 450 Lab / Micro Data 11/05/24 06:50 11/05/24 06:50 Labs: Laboratory Results - last 24 hr 11/05/24 16:12: POC Glucose 111 H 11/05/24 21:37: POC Glucose 101 11/06/24 06:30: POC Glucose 104 11/06/24 11:15: POC Glucose 124 H Micro: Microbiology 11/04/24 14:31 Blood Culture (Wb) - Anticubital Right Blood Culture - Preliminary No growth in 48 hours. 11/04/24 14:10 Blood Culture (Wb) - Anticubital Left Blood Culture - Preliminary No growth in 48 hours. 11/04/24 13:00 Urine, Clean Catch Urine Culture - Final Klebsiella pneumoniae sp pneum Physical Exam Narrative alert, oriented x3 and no apparent distress Constitutional Narrative: Patient has class III obesity General Appearance: cooperative and well developed Orientation / Consciousness: awake, oriented to person, oriented to place and oriented to time HEENT normocephalic, head/scalp atraumatic and moist oral mucous membranes Eyes PERRL, EOMs intact bilaterally and conjunctivae normal Neck supple, no JVD, thyroid normal and no carotid bruits General: trachea midline Resp normal respiratory effort, no retractions, no use of accessory muscles and clear to auscultation bilaterally Auscultation: Negative for rales, rhonchi or wheezes Cardio regular rate, regular rhythm, S1 normal heart sound, S2 normal heart sound, no murmurs, no rub and no gallops GI normal to inspection, nondistended, normoactive bowel sounds, soft to palpation, non-tender and non-distended Extremity no clubbing, cyanosis or edema Skin no rashes or lesions noted General Skin Exam: no breakdown Neuro oriented x3, CN's II-XII intact bilaterally, moves all extremities, no focal motor deficits and no sensory deficits noted Sensorium / Orientation: awake and alert Speech: speech normal Psych affect normal Assessment & Plan Assessment/Plan (1) Urinary tract infection: PLAN: Plan 1. Acute cystitis from Klebsiella pneumoniae-patient was changed to oral Keflex today and her IV Rocephin was stopped #2 acute on chronic debility secondary to multiple medical problems including bipolar disorder, type 2 diabetes, morbid obesity, and chronic obstructive pulmonary disease with a backdrop of acute cystitis-PT and OT will continue to work with the patient, she will need placement in a retirement facility for at least short-term rehab services. #3 type 2 diabetes-patient's blood sugars will be monitored and sliding scale insulin will be administered as needed #4 morbid obesity-complicates care, management, recovery, and prognosis #5 chronic kidney disease stage IIIb secondary to type 2 diabetes-complicates care, management, recovery, and prognosis Total clinical time spent by myself addressing the patient's medical issues, reviewing all of her data, and collaborating with patient's care team: 35 minutes Charges/Coding Visit Charges Inpatient E&M: 21484 Subs Hosp L2
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
[2024-11-06] MEDS: Acetaminophen 325 MG Tablet 650 MG PO (17:29)
[2024-11-06 21:06] LABS: Bedside Glucose 110 mg/dL (74-106)
[2024-11-06] MEDS: traZODone 100 MG Tablet 200 MG PO (21:32)
[2024-11-06] MEDS: QUEtiapine 100 MG Tablet 200 MG PO (21:33)
[2024-11-06 21:54] LABS: Bedside Glucose 99 mg/dL (74-106)
[2024-11-07 05:03] VITALS: BP 92/58; PULSE 58; RESP 16; TEMP 36.4; O2SAT 96
[2024-11-07 06:00] VITALS: BMI 48.4
[2024-11-07] MEDS: Cephalexin 500 MG Capsule PO ×2 (06:31→13:08)
[2024-11-07] MEDS: Nystatin Powder 15gm Bottle 1 APPLIC TOPICAL ×2 (06:31→13:08)
[2024-11-07 06:52] LABS: Bedside Glucose 100 mg/dL (74-106)
[2024-11-07] MEDS: Budesonide Respules 0.5 MG/2 ML AMPUL.NEB. INHALATION (06:57)
[2024-11-07 07:10] VITALS: PULSE 76; RESP 17
[2024-11-07] MEDS: Pantoprazole Sodium 40 MG Tablet PO (08:17)
[2024-11-07] MEDS: QUEtiapine 100 MG Tablet PO ×2 (08:17→14:57)
[2024-11-07] MEDS: Atorvastatin Calcium 10 MG Tablet 5 MG PO (08:18)
[2024-11-07] MEDS: APIXABAN 5 MG TABLET PO (08:18)
[2024-11-07] MEDS: Citalopram 10 MG Tablet PO (08:18)
[2024-11-07] MEDS: NYSTATIN 500,000 UNIT/5 ML UDC 500000 UNIT PO ×2 (08:19→13:07)
[2024-11-07 08:55] VITALS: BP 107/50; PULSE 56; RESP 16; TEMP 36.8; O2SAT 93
[2024-11-07 11:15] VITALS: BP 111/47; PULSE 80; RESP 16; TEMP 36.8; O2SAT 94
[2024-11-07 11:25] LABS: Bedside Glucose 117 mg/dL (74-106)
--- NOTE | 2024-11-07 14:27 | CASEMGMT ---
Social Work- SW met with pt to continue discussions regarding discharge planning. SW again offer SNF placement at d/c. Pt continues to refuse. SW provided education on shelters; pt declines. Pt reports that she is a . SW called [facility] who report that they were unable to find her running her social security number two different ways. [facility] also report that they do not offer an emergency housing program for assistance with hotels for short stays. Pt reports that she has her W-2 in her belongings. SW questioned if pt meant her DD-214; pt affirmed. Pt again tried to call Ildefonso in regards to her belongings. Ildefonso did not answer. Pt texted Ildefonso; no response at this time. SW remains available to follow. BILL Roland
--- NOTE | 2024-11-07 15:10 | CASEMGMT ---
Social Work- ANGI received a voicemail from Cyril Sung CM [phone] to discuss discharge plans. ANGI left Ana Lilia a voicemail updating her on d/c planning. BILL Roland
[2024-11-07 15:19] LABS: Bedside Glucose 118 mg/dL (74-106)
--- NOTE | 2024-11-07 16:33 | CASEMGMT ---
Addendum entered by Elizabeth Qiu 11/07/24 16:43: OMARI DE SANTIAGO into pt room, pt agreeable to [facility] for rx. Pt would like meds to be delivered to the room. Pt is aware that she will be given a pair of shoes as well. Pt dinner being delivered to room currently. Original Note: TC to [facility], they have a size 9 female shoe for pt. FLATWORK FINISHER will obtain from the Rehab unit. SW aware.
--- NOTE | 2024-11-07 16:34 | PCM.DC ---
Discharge Instructions Diet Discharge Diet: No restrictions DC O2, CPAP, BIPAP needs Home O2 Discharge instructions: No Dressing / Incision Discharge Activity: Return to Normal Activity Weight Bearing Status: Full weight bearing Follow Up Care Test Results: Test results from this visit will be discussed in further detail at your follow-up appointment, if applicable. Discharge Plan Admission Admit Date/Time: 11/04/24 14:30 Primary Reason for Your Visit: Debility Attending Provider: Azam Guillen Primary Care Provider: Homer Bradford Consulting Providers: Lauren Vela Discharge Orders/Prescriptions Prescriptions: New albuterol sulfate 90 mcg/actuation HFA aerosol inhaler 2 puff inhalation Q6H PRN (Reason: shortness of breath or wheezing) Qty: 6.7 0RF citalopram 10 mg Tablet 10 mg PO DAILY Qty: 30 0RF Eliquis 5 mg Tablet 5 mg PO Q12 Qty: 60 0RF cefdinir 300 mg capsule 600 mg PO DAILY Qty: 10 0RF atorvastatin 10 mg Tablet 10 mg PO DAILY Qty: 30 0RF quetiapine 100 mg Tablet 200 mg PO BID Qty: 120 0RF trazodone 100 mg Tablet 200 mg PO QHS Qty: 60 0RF pantoprazole 40 mg Tablet,Delayed Release (Dr/Ec) 40 mg PO DAILY Qty: 30 0RF Gemtesa 75 mg tablet 75 mg PO DAILY Qty: 30 0RF Discontinued lovastatin 20 mg tablet 40 mg PO QDAY omega-3 fatty acids-fish oil [Fish Oil] 360-1,200 mg capsule 1 cap PO BID ipratropium-albuterol 0.5 mg-3 mg(2.5 mg base)/3 mL Solution For Nebulization 3 ml inhalation Q4HWA.RT PRN (Reason: shortness of breath or wheezing) Qty: 0 0RF citalopram [Celexa] 10 mg tablet 10 mg PO DAILY 30 Days Qty: 30 0RF lorazepam [Ativan] 0.5 mg tablet 0.5 mg PO Q12H PRN (Reason: Anxiety) 30 Days Qty: 60 0RF albuterol sulfate [Ventolin HFA] 90 mcg/actuation HFA aerosol inhaler 1 puff INHALATION Q6H 30 Days Qty: 8.5 12RF quetiapine 200 mg tablet extended release 24 hr 200 mg PO BID 30 Days Qty: 30 0RF Patient Comments: [NO ORIGINAL SIG] omeprazole 40 mg capsule,delayed release(DR/EC) 40 mg PO DAILY fesoterodine [Toviaz] 4 mg tablet extended release 24 hr 4 mg PO DAILY spironolactone 25 mg tablet 25 mg PO DAILY Gemtesa 75 mg tablet 75 mg PO DAILY trazodone 100 mg tablet 200 mg PO QHS PRN (Reason: Sleep) Referrals / Follow Up: Homer Bradford MD [Primary Care Provider] - Within 2 Weeks Disposition Disposition (needs filled in before D/C Order can be placed): Home, Self Care
--- NOTE | 2024-11-07 16:48 | PCM.DC.SUM ---
Providers Date of Admission: 11/04/24 Date of Discharge: 11/07/24 Primary Care Physician: Dr. Homer Bradford MD Reason For Visit: ADULT FTT, DEBILITY, UTI Diagnosis Discharge Diagnosis (1) Urinary tract infection: Status: Acute Code(s): N39.0 - Urinary tract infection, site not specified Plan 1. Acute cystitis from Klebsiella pneumoniae-patient was changed to oral Keflex today and her IV Rocephin was stopped #2 acute on chronic debility secondary to multiple medical problems including bipolar disorder, type 2 diabetes, morbid obesity, and chronic obstructive pulmonary disease with a backdrop of acute cystitis-PT and OT will continue to work with the patient, she will need placement in a detention facility for at least short-term rehab services. #3 type 2 diabetes-patient's blood sugars will be monitored and sliding scale insulin will be administered as needed #4 morbid obesity-complicates care, management, recovery, and prognosis #5 chronic kidney disease stage IIIb secondary to type 2 diabetes-complicates care, management, recovery, and prognosis #6 homelessness Total clinical time spent by myself addressing the patient's medical issues, reviewing all of her data, and collaborating with patient's care team: 35 minutes Medications at Discharge Home Medications albuterol sulfate 90 mcg/actuation aerosol inhaler 2 puff inhalation Q6H PRN shortness of breath or wheezing #6.7 grams 11/07/24 apixaban 5 mg tablet (Eliquis) 5 mg PO Q12 #60 tabs 11/07/24 atorvastatin 10 mg tablet 10 mg PO DAILY #30 tabs 11/07/24 cefdinir 300 mg capsule 600 mg (2 x 300 mg) PO DAILY #10 caps 11/07/24 citalopram 10 mg tablet 10 mg PO DAILY #30 tabs 11/07/24 pantoprazole 40 mg tablet,delayed release 40 mg PO DAILY #30 tabs 11/07/24 quetiapine 100 mg tablet 200 mg (2 x 100 mg) PO BID #120 tabs 11/07/24 trazodone 100 mg tablet 200 mg (2 x 100 mg) PO QHS #60 tabs 11/07/24 vibegron 75 mg tablet (Gemtesa) 75 mg PO DAILY #30 tabs 11/07/24 Hospital Course Operations None Procedures None Summary of Care Provided Minutes Spent on Discharge: 32 Hospital Course: This 64-year-old white female was seen in the emergency room at [facility] with complaints of generalized debility and lack of ability to perform ADLs at home. Patient also stated that she was no longer able to live in the home that she was living at due to the fact her friends who she stays with are moving. Labs obtained in the emergency room were abnormal for creatinine of 1.48, CBC was unremarkable, urinalysis was positive for nitrites, +3 bacteria, and 25-50 WBCs. Patient was admitted to [place] [address] and placed on IV antibiotics for acute cystitis, she was seen by PT and OT, discussions were carried out with case management, patient refused to go to a nursing facility and refused to go to a women's residential or similar facility. Urine culture grew out Klebsiella pneumoniae. On, patient was seen and examined:alert, oriented x3 and no apparent distress Constitutional Narrative: Patient has class III obesity General Appearance: cooperative and well developed Orientation / Consciousness: awake, oriented to person, oriented to place and oriented to time HEENT normocephalic, head/scalp atraumatic and moist oral mucous membranes Eyes PERRL, EOMs intact bilaterally and conjunctivae normal Neck supple, no JVD, thyroid normal and no carotid bruits General: trachea midline Resp normal respiratory effort, no retractions, no use of accessory muscles and clear to auscultation bilaterally Auscultation: Negative for rales, rhonchi or wheezes Cardio regular rate, regular rhythm, S1 normal heart sound, S2 normal heart sound, no murmurs, no rub and no gallops GI normal to inspection, nondistended, normoactive bowel sounds, soft to palpation, non-tender and non-distended Extremity no clubbing, cyanosis or edema Skin no rashes or lesions noted General Skin Exam: no breakdown Neuro oriented x3, CN's II-XII intact bilaterally, moves all extremities, no focal motor deficits and no sensory deficits noted Sensorium / Orientation: awake and alert Speech: speech normal Psych affect normal Patient was discharged on 11/07/2024 in stable condition. Weight / BMI Weight Weight: 119.3 kg Body Mass Index (BMI) 48.4 ABG / Lab / Microbiology Data 11/05/24 06:50 11/05/24 06:50 Laboratory: Laboratory Results - last 24 hr 11/07/24 11:08: POC Glucose 117 H 11/07/24 15:00: POC Glucose 118 H Microbiology: Microbiology 11/04/24 14:31 Blood Culture (Wb) - Anticubital Right Blood Culture - Preliminary No growth in 48 hours. 11/04/24 14:10 Blood Culture (Wb) - Anticubital Left Blood Culture - Preliminary No growth in 48 hours. 11/04/24 13:00 Urine, Clean Catch Urine Culture - Final Klebsiella pneumoniae sp pneum D/C Instructions Discharge Diet: No restrictions Weight Bearing Status: Full weight bearing DC O2, CPAP, BIPAP Needs Home O2 Discharge instructions: No Meaningful Use Info Meaningful Use Meaningful Use Diagnoses (Choose all that apply): None applicable Ischemic Stroke Statin Dosing Therapy Reference: STATIN DOSE THERAPY REFERENCE: * Patients > 75 years receive moderate or high dose statin therapy. * Patients 75 years or YOUNGER should receive HIGH intensity statin dose unless contraindicated. You will be required to document reason for non-treatment if statin daily dose does not meet guidelines. HIGH DOSE STATIN THERAPY DAILY Atorvastatin > than or = to 40 mg Rosuvastatin > than or = to 20 mg Amlodipine + Atorvastatin > than or = to 2.5/40 mg Ezetimibe + Simvastatin 10/80 mg Simvastatin 80mg Discharge Plan Admission Admit Date/Time: 11/04/24 14:30 Primary Reason for Your Visit: Debility Attending Provider: Azam Guillen Primary Care Provider: Homer Bradford Consulting Providers: Lauren Vela Discharge Orders/Prescriptions Prescriptions: New albuterol sulfate 90 mcg/actuation HFA aerosol inhaler 2 puff inhalation Q6H PRN (Reason: shortness of breath or wheezing) Qty: 6.7 0RF citalopram 10 mg Tablet 10 mg PO DAILY Qty: 30 0RF Eliquis 5 mg Tablet 5 mg PO Q12 Qty: 60 0RF cefdinir 300 mg capsule 600 mg PO DAILY Qty: 10 0RF atorvastatin 10 mg Tablet 10 mg PO DAILY Qty: 30 0RF quetiapine 100 mg Tablet 200 mg PO BID Qty: 120 0RF trazodone 100 mg Tablet 200 mg PO QHS Qty: 60 0RF pantoprazole 40 mg Tablet,Delayed Release (Dr/Ec) 40 mg PO DAILY Qty: 30 0RF Gemtesa 75 mg tablet 75 mg PO DAILY Qty: 30 0RF Discontinued lovastatin 20 mg tablet 40 mg PO QDAY omega-3 fatty acids-fish oil [Fish Oil] 360-1,200 mg capsule 1 cap PO BID ipratropium-albuterol 0.5 mg-3 mg(2.5 mg base)/3 mL Solution For Nebulization 3 ml inhalation Q4HWA.RT PRN (Reason: shortness of breath or wheezing) Qty: 0 0RF citalopram [Celexa] 10 mg tablet 10 mg PO DAILY 30 Days Qty: 30 0RF lorazepam [Ativan] 0.5 mg tablet 0.5 mg PO Q12H PRN (Reason: Anxiety) 30 Days Qty: 60 0RF albuterol sulfate [Ventolin HFA] 90 mcg/actuation HFA aerosol inhaler 1 puff INHALATION Q6H 30 Days Qty: 8.5 12RF quetiapine 200 mg tablet extended release 24 hr 200 mg PO BID 30 Days Qty: 30 0RF Patient Comments: [NO ORIGINAL SIG] omeprazole 40 mg capsule,delayed release(DR/EC) 40 mg PO DAILY fesoterodine [Toviaz] 4 mg tablet extended release 24 hr 4 mg PO DAILY spironolactone 25 mg tablet 25 mg PO DAILY Gemtesa 75 mg tablet 75 mg PO DAILY trazodone 100 mg tablet 200 mg PO QHS PRN (Reason: Sleep) Referrals / Follow Up: Homer Bradford MD [Primary Care Provider] - Within 2 Weeks Disposition Disposition (needs filled in before D/C Order can be placed): Home, Self Care Charges/Coding Visit Charges Inpatient E&M: 64515 Disch Hosp >30min
--- NOTE | 2024-11-07 17:37 | CASEMGMT ---
Social Work- ANGI updated pt that physician plans to discharge. SW encouraged pt to consider SNF. Pt is adamant that she will not go to a SNF. Pt reports that they aren't good for me and she doesn't like to be around people. SW tried reasoning with pt that the streets are not good for pt either. SW encouraged pt to consider a senior living. Pt again refused. SW offered to call [facility] with pt; pt refused. ANGI called [facility] to verify availability of bed; they are full. Pt reports that she would not go to a senior living anyway. SW called [employer] to see about emergency housing funds; no funds are available at this date. ANGI called [employer] and [facility] to see if they are aware of any funding; no funding available at this date. ANGI updated pt. Pt reports that she wants to d/c to [facility]. as she needs to handle banking matters due to her account being hacked. Pt did not have shoes. ANGI collaborated with hospital staff to obtain shoes from the clothing closet for pt. ANGI called [employer] to obtain prescription information; scripts last filled 10/22. Current meds match with prescribed meds. ANGI collaborated with nursing on pt meds from [facility] pharmacy. Pt requests a walker. SW coordinated walker from [facility] for pt. ANGI and nursing both repeatedly discussed the concerns from staff about pt choice to discharge to the streets versus a senior living or SNF. Pt repeatedly declined SNF or senior living and denied having any concerns regarding discharge plan. Pt is her own guardian and able to make her own choices at this date. ANGI called [employer] and set up transport for 4-6PM for pt. [facility] transport number [phone]. Pt reports that she didn't know that her insurance provided transportation. SW redirected pt back to printables provided previously. SW to follow up with [facility] at discharge. BILL Roland
--- NOTE | 2024-11-07 18:21 | NURSING ---
provide a ride called with an updated pickling tank operator time [phone] at the ER enterance. primary RN updated
--- NOTE | 2024-11-08 11:28 | CASEMGMT ---
Social Work- ANGI called [facility], to notify of pt discharge. ANGI left a voicemail on her secure line. BILL Roland
== END 2024-11-07 19:50 | disposition home or self-care (01) | DRG 463 ==
LOC: ED 14:39 → MS3 15:20
PROVIDERS: Physician Assistant; Admitting Provider Family Medicine; Emergency Provider Emergency Medicine; PCP Family Medicine; Visit Provider Internal Medicine
DX: N30.00 Acute cystitis without hematuria (principal); B37.0 Candidal stomatitis; R62.7 Adult failure to thrive; Z59.00 Homelessness unspecified; E11.22 Type 2 diabetes mellitus with diabetic chronic kidney disease; Z68.42 Body mass index [BMI] 45.0-49.9, adult; N18.32 Chronic kidney disease, stage 3b; J44.89 Other specified chronic obstructive pulmonary disease; I48.0 Paroxysmal atrial fibrillation; E11.65 Type 2 diabetes mellitus with hyperglycemia; E78.00 Pure hypercholesterolemia, unspecified; K21.9 Gastro-esophageal reflux disease without esophagitis; F17.200 Nicotine dependence, unspecified, uncomplicated; I25.2 Old myocardial infarction; F41.8 Other specified anxiety disorders; B96.1 Klebsiella pneumoniae [K. pneumoniae] as the cause of diseases classified elsewhere; Z79.82 Long term (current) use of aspirin; Z79.01 Long term (current) use of anticoagulants; R53.81 Other malaise; E66.813 Obesity, class 3; Z86.73 Personal history of transient ischemic attack (TIA), and cerebral infarction without residual deficits; Z79.899 Other long term (current) drug therapy; Z90.49 Acquired absence of other specified parts of digestive tract
CPT/HCPCS: 36415; 80048; 80053; 81001; 82962; 83036; 83735; 84100; 85025; 87040; 87077; 87086; 87088; 87186; 94640; 97162; 97165; 97530; 97535; 99285; 99406; P9612; A4216

== ENCOUNTER 2024-11-12 02:26 | Emergency (ER) | payer MEDICAID, SELFPAY ==
[2024-11-12 02:26] VITALS: BP 111/83; PULSE 98; RESP 20; TEMP 36.5; O2SAT 95; BMI 47.8
--- NOTE | 2024-11-12 02:37 | EX.ED.DYSGE1 ---
HPI History of Present Illness Chief Complaint: Complaint Narrative Narrative: 64-year-old female past medical history of bipolar disorder, tar dive dyskinesia, COPD, CKD presents via EMS with 2 complaints. She states that she has not urinated all day, and only leaked a little when she was in the ambulance. Of note, she was recently treated for UTI, was admitted to the hospital, but discharged approximately 4 days ago when she refused to go to a [place] facility. Initially she had been admitted because of a UTI, and the place where she was staying with friends she could no longer inhabit because they were moving. She has been homeless ever since. She was outside sitting when she had not been able to urinate all day, and she has a sore on the side of her right hip that is hurting her. No recent fevers or chills, no nausea or vomiting, no exacerbating or alleviating factors. [facility] Medical History History of echocardiogram Wears glasses Anxiety Depression Post-menopausal History of renal disease High cholesterol Back pain TIA (transient ischemic attack) Gastric reflux Smoker Shortness of breath on exertion History of pain when walking History of edema Cardiology follow-up encounter History of heart attack Chest pain History of left heart catheterization (LHC) (~12/30/20) CKD (chronic kidney disease) stage 3, GFR 30-59 ml/min Lung nodule COPD (chronic obstructive pulmonary disease) Paroxysmal atrial fibrillation Elevated liver enzymes Acute respiratory failure with hypoxia Stroke IBS (irritable bowel syndrome) Hyperlipidemia Heart disease Migraines Frequent headaches Gastrointestinal problem Diabetes History of back problems Asthma Arthritis Home Medications ?Medication ?Instructions ?Recorded ?Last Taken ?Type albuterol sulfate 90 mcg/actuation 2 puff inhalation Q6H PRN 11/07/24 Unknown Rx aerosol inhaler shortness of breath or wheezing #6.7 grams apixaban 5 mg tablet (Eliquis) 5 mg PO Q12 #60 tabs 11/07/24 Unknown Rx atorvastatin 10 mg tablet 10 mg PO DAILY #30 tabs 11/07/24 Unknown Rx cefdinir 300 mg capsule 600 mg (2 x 300 mg) PO DAILY #10 11/07/24 Unknown Rx caps citalopram 10 mg tablet 10 mg PO DAILY #30 tabs 11/07/24 Unknown Rx pantoprazole 40 mg tablet,delayed 40 mg PO DAILY #30 tabs 11/07/24 Unknown Rx release quetiapine 100 mg tablet 200 mg (2 x 100 mg) PO BID #120 11/07/24 Unknown Rx tabs trazodone 100 mg tablet 200 mg (2 x 100 mg) PO QHS #60 tabs 11/07/24 Unknown Rx vibegron 75 mg tablet (Gemtesa) 75 mg PO DAILY #30 tabs 11/07/24 Unknown Rx Allergy/AdvReac Type Severity Reaction Status Date / Time Penicillins Allergy Intermediate Hives Verified 09/12/24 10:32 carbamazepine (From Tegretol) AdvReac Intermediate Nausea Verified 09/12/24 10:32 benztropine AdvReac Unknown Verified 09/12/24 10:32 diazepam (From Valium) AdvReac Other Verified 09/12/24 10:32 Sulfa (Sulfonamide AdvReac Nausea Verified 09/12/24 10:32 Antibiotics) thioridazine AdvReac Nausea Verified 09/12/24 10:32 thioridazine HCl (From AdvReac Other Verified 09/12/24 10:32 Mellaril) Family History Grandmother Cancer stomach Father Cancer lung Sister Breast cancer Surgical History Hx of surgical procedure History of carpal tunnel surgery History of elbow surgery H/O shoulder surgery H/O hand surgery H/O dilation and curettage Hx of cholecystectomy History of tonsillectomy Social History household members: other details: Living in apt with friends, now moving out without home at discharge. housing: homeless Smoking Status: Heavy Smoker (>10/day) alcohol intake: never substance use type: does not use caffeine: Yes what type of physical activity do you participate in: walking seatbelt use: always do you feel safe at home: Yes ROS ROS ED ROS Narrative Review of systems positive for right hip pain/wound. Positive urinary retention. No fevers or chills, no nausea or vomiting. Denies other symptoms. EXAM Physical Exam Narrative Exam Narrative: Afebrile. Vital signs noted. Nontoxic-appearing. Cardiovascular examination regular rate and rhythm. Lungs clear to auscultation bilaterally. Abdomen soft, obese, nontender without guarding or rebound. Positive bowel sounds. Inspection of the right hip does show epidermal skin breakdown/abrasion without active bleeding. Neurological examination is consistent with tar dive dyskinesia, but she is awake, alert, and oriented. Moves all extremities. Const Vital Signs: 11/12/24 02:26 11/12/24 03:51 11/12/24 03:53 Temperature 97.7 F L 97.7 F L Temperature Source Oral Pulse Rate 98 90 90 Respiratory Rate 20 H 18 18 Blood Pressure 111/83 H 96/68 96/68 Blood Pressure Mean 92 77 77 Pulse Ox 95 98 94 Oxygen Delivery Method Room Air Room Air MDM MDM MDM Narrative Medical decision making narrative: Differential diagnosis includes urinary retention versus decreased urine output versus UTI. Regarding her epidermal skin tears on her right hip, they were cleansed and dressed with bacitracin and nonadherent dressing by RN. She will be straight cathed for urine and I will check her laboratory work again. I did review her discharge summary, and patient had been admitted as stated in the HPI for failure to thrive and UTI. She did have Klebsiella and was changed to Keflex. She states she is taking her antibiotics. I asked her again if she would like to be admitted for [place] [facility] [place] placement, but as she had stated for the discharge summary, she is refusing. She states that she is here to get her right hip wound checked, and why she has not urinated today. She states that she will go to the [facility] at 10 AM, approximately 7 hours from now. Per RN, when they attempted to straight catheterize her, patient had a large amount of urine leak around the catheter, almost 1 L. Her urinary retention may be psychogenic versus from her medications/psychiatric medications. I reviewed her laboratory work and she has slight elevation of her white count of 11.6 which is nonspecific with hemoglobin 13.6, hematocrit 42.0, platelet count 325. I reviewed her BMP and she has normal sodium and normal potassium with BUN of 16 and creatinine 1.26, only slightly elevated. Urinalysis shows no evidence of infection with 0 WBCs and no bacteria. At this point in time, I feel she can be discharged to follow-up. Once again, I discussed with her the possibility of observation or admission for longterm placement and she declines. I feel she has the capacity to make this decision as she had been refusing previously when she was admitted as an inpatient. Patient reiterates that she does not want to go to a [place] facility. She states that she is supposed to be at the [facility] at 10 AM. She is unsure as to how she is going to get there. Additionally, she said that if she could not be accepted there currently at 3:45 AM, that she would return to the [facility]. However, she cannot walk that far and would have to find a ride. Given her situation, I do feel that she can be observed here in the emergency department until social work can be consulted to help with discharge planning. Currently, patient is in stable condition. Additionally, should she decide that she would like to be discharged or find a ride to the [facility], she will be discharged to follow-up with her primary care provider. Otherwise, she will be signed out to the oncoming physician in the morning. History & Record Review Discussion w/independent historian: Patient Additional record(s) reviewed:: Prior inpatient record and Prior labs Lab Data Attestation: I reviewed the patient's lab results. Labs: Laboratory Results - last 24 hr 11/12/24 11/12/24 02:50 02:51 WBC 11.6 H RBC 4.43 Hgb 13.6 Hct 42.0 MCV 94.8 MCH 30.7 MCHC 32.4 RDW Std Deviation 47.3 H RDW Coeff of Robert 13.4 Plt Count 325 MPV 10.2 Immature Gran % (Auto) 0.300 Neut % (Auto) 64.4 Lymph % (Auto) 24.2 Kent % (Auto) 7.9 Eos % (Auto) 2.8 Baso % (Auto) 0.4 Absolute Neuts (auto) 7.5 Absolute Lymphs (auto) 2.81 Nucleated RBC % 0 Sodium 140 Potassium 3.8 Chloride 105 Carbon Dioxide 23.7 Anion Gap 11 BUN 16 Creatinine 1.26 H Estim Creat Clear Calc 56.64 Est GFR (MDRD) Non-Af 48 L BUN/Creatinine Ratio 12.8 Glucose 136 H Calcium 9.4 Urine Color Yellow Urine Clarity Clear Urine pH 5.0 Ur Specific Chapin 1.020 Urine Protein 30 H Urine Glucose (UA) Normal Urine Ketones Negative Urine Occult Blood 10 H Urine Nitrite Negative Urine Bilirubin Negative Urine Urobilinogen Normal Ur Leukocyte Esterase Negative Urine RBC 0 SEEN Urine WBC 0 SEEN Ur Squamous Epith Cells 0 SEEN Urine Bacteria 0 SEEN Urine Mucus 0 SEEN Discharge Plan Triage Chief Complaint: Complaint ED Provider: Randy Cabrales Dx/Rx/DC Orders Clinical Impression: Urinary retention, Skin breakdown, Homelessness Instructions: Nonspecific Skin Rash, ED Urinary Retention, Female Prescriptions: No Action albuterol sulfate 90 mcg/actuation HFA aerosol inhaler 2 puff inhalation Q6H PRN (Reason: shortness of breath or wheezing) Qty: 6.7 0RF citalopram 10 mg Tablet 10 mg PO DAILY Qty: 30 0RF Eliquis 5 mg Tablet 5 mg PO Q12 Qty: 60 0RF cefdinir 300 mg capsule 600 mg PO DAILY Qty: 10 0RF atorvastatin 10 mg Tablet 10 mg PO DAILY Qty: 30 0RF quetiapine 100 mg Tablet 200 mg PO BID Qty: 120 0RF trazodone 100 mg Tablet 200 mg PO QHS Qty: 60 0RF pantoprazole 40 mg Tablet,Delayed Release (Dr/Ec) 40 mg PO DAILY Qty: 30 0RF Gemtesa 75 mg tablet 75 mg PO DAILY Qty: 30 0RF Primary Care Provider: Homer Bradford Referrals: Homer Bradford MD [Primary Care Provider] - 3-5 Days Print Language: Mauritian Disposition Disposition: Home, Self Care
[2024-11-12 03:01] LABS: Bacteria 0 SEEN /hpf (None Seen); Mucous, Urine 0 SEEN /hpf (<or=2+); Red Blood Cells-Urine 0 SEEN /hpf (0-5); Squamous Epithelial Cells - UA 0 SEEN /hpf (5-10); White Blood Cells 0 SEEN /hpf (0-5)
[2024-11-12 03:03] LABS: Absolute Lymphocyte Count 2.81 X10^3/uL (0.83-4.51); Absolute Neutrophil Count 7.5 X10^3/uL (2.0-7.7); Basophil# 0.05 X10^3/uL; Basophil% 0.4 % (0-1); Eosinophil# 0.32 X10^3/uL; Eosinophils% 2.8 % (0-5); Hemoglobin 13.6 g/dL (12.0-15.0); Lymphocyte # 2.81 X10^3/ul (0.83-4.51); Lymphocyte % 24.2 % (19-41); Mean Corp Hgb Conc 32.4 g/dL (32-36); Mean Corpuscular Hgb 30.7 pg (27.0-32.0); Mean Corpuscular Volume 94.8 fL (81-99); Mean Platelet Vol. 10.2 fl (6.2-12.0); Monocyte# 0.92 X10^3/uL; Monocyte% 7.9 % (0-10); NRBC Flagged by Analyzer 0 % (0-5); Neutrophil # 7.48 X10^3/uL (2.7-7.7); Neutrophil % 64.4 % (47-70); Platelet Count 325 K/mm3 (150-450); RBC Distribution Width CV 13.4 % (11.6-14.6); RBC Distribution Width SD 47.3 fl (35.1-43.9); Red Blood Count 4.43 M/mm3 (4.2-5.4); White Blood Count 11.6 K/mm3 (4.4-11.0)
[2024-11-12 03:07] LABS: Glucose, Dipstick Normal (Normal); Ketone-Dipstick Negative (Negative); Leukocyte Esterase-Dipstick Negative /ul (Negative); Nitrite-Dipstick Negative (Negative); Occult Blood-Urine 10 /ul (Negative); Protein-Dipstick 30 mg/dl (Negative); Urine Bilirubin Dipstick Negative (Negative); Urine Urobilinogen Normal (Normal)
[2024-11-12 03:20] LABS: Color, Urine Yellow (Yellow); Urine Clarity Clear (Clear)
[2024-11-12 03:36] LABS: Anion Gap 11 (5-15); BUN 16 mg/dL (4-19); BUN/Creat Ratio 12.8 RATIO (10-20); Calcium,Total 9.4 mg/dL (7.6-11.0); Carbon Dioxide 23.7 mmol/L (21.0-32.0); Chloride 105 mmol/L (98-108); Creatinine, Serum 1.26 mg/dL (0.70-1.20); EST Glomerular Filtration Rate 48 (>60); Estimated Creatinine Clearance 56.64 ml/min (50-250); Glucose 136 mg/dL (70-99); Potassium 3.8 mmol/L (3.3-5.1); Sodium Level 140 mmol/L (133-145)
[2024-11-12 03:51] VITALS: BP 96/68; PULSE 90; RESP 18; TEMP 36.5; O2SAT 98
[2024-11-12 03:53] VITALS: BP 96/68; PULSE 90; RESP 18; O2SAT 94
== END 2024-11-12 08:09 | disposition home or self-care (01) ==
LOC: ED 03:33
PROVIDERS: Emergency Provider Emergency Medicine; PCP Family Medicine; Visit Provider Emergency Medicine
DX: R33.9 Retention of urine, unspecified (principal); F31.9 Bipolar disorder, unspecified; J44.9 Chronic obstructive pulmonary disease, unspecified; I48.0 Paroxysmal atrial fibrillation; E11.22 Type 2 diabetes mellitus with diabetic chronic kidney disease; N18.30 Chronic kidney disease, stage 3 unspecified; Z59.00 Homelessness unspecified; F17.200 Nicotine dependence, unspecified, uncomplicated; E78.00 Pure hypercholesterolemia, unspecified; Z86.73 Personal history of transient ischemic attack (TIA), and cerebral infarction without residual deficits; Z79.01 Long term (current) use of anticoagulants; Z79.899 Other long term (current) drug therapy; K21.9 Gastro-esophageal reflux disease without esophagitis; Z90.49 Acquired absence of other specified parts of digestive tract; S71.011A Laceration without foreign body, right hip, initial encounter
CPT/HCPCS: 51701; 80048; 81001; 85025; 87086; 99285; P9612; A4216

== ENCOUNTER 2024-11-14 06:49 | Emergency (ER) | payer MEDICAID, SELFPAY ==
[2024-11-14] VITALS (8 sets, daily range): BP systolic 94–131; BP diastolic 60–82; PULSE 78–99; RESP 12–18; TEMP 36.5–37.2; O2SAT 91–98; BMI 49.8
--- NOTE | 2024-11-14 07:13 | EX.ED.DYSGE1 ---
HPI History of Present Illness Chief Complaint: Abd Pain Narrative Narrative: Chief complaint and HPI: Right lower quadrant abdominal pain. 64-year-old female with past medical history of bipolar disorder, tardive dyskinesia, COPD, DM2, CKD presents for evaluation of right lower quadrant abdominal pain. History taken by patient as well as medical record. Patient was recently discharged from our hospital on 11/07/2024 due to acute cystitis from Klebsiella pneumonia. She was treated with Rocephin and discharged home on Keflex. She states that she took all of her antibiotics. Patient states for the past several days she has been having right lower quadrant abdominal pain. She was seen in our emergency department for same complaint on 11/12. She also endorses that she is homeless. She denies any fever, chills, shortness of breath, chest pain, nausea, vomiting, dysuria, constipation, diarrhea. On chart review, patient had laboratory workup performed on 11/[address] abdomen pelvis. Review of systems: See HPI Medications: As listed on the chart Allergies: As listed on the chart PFSH: Per chart Vital signs: As listed on the chart. Reviewed. Physical exam: Gen: A&O x3, NAD Head: Normocephalic, atraumatic Eyes: No sclera icterus, conjunctiva clear ENT: Moist mucous membranes Neck: Trachea midline, No JVD CV: RRR, no murmurs, no peripheral edema Resp: Lungs CTA BL, no w/r/c GI: Obese, abd soft, non-distended, tender to palpation of the right lower quadrant, has skin abrasion to the right flank without signs of cellulitis or infection, no r/r/g : No CVA tenderness Musc: Full ROM, no deformity Skin: Warm, dry Neuro: Alert, oriented, grossly intact, sensation intact Psych: Cooperative, appropriate mood and affect [facility] Medical History History of echocardiogram Wears glasses Anxiety Depression Post-menopausal History of renal disease High cholesterol Back pain TIA (transient ischemic attack) Gastric reflux Smoker Shortness of breath on exertion History of pain when walking History of edema Cardiology follow-up encounter History of heart attack Chest pain History of left heart catheterization (LHC) (~12/30/20) CKD (chronic kidney disease) stage 3, GFR 30-59 ml/min Lung nodule COPD (chronic obstructive pulmonary disease) Paroxysmal atrial fibrillation Elevated liver enzymes Acute respiratory failure with hypoxia Stroke IBS (irritable bowel syndrome) Hyperlipidemia Heart disease Migraines Frequent headaches Gastrointestinal problem Diabetes History of back problems Asthma Arthritis Home Medications ?Medication ?Instructions ?Recorded ?Last Taken ?Type albuterol sulfate 90 mcg/actuation 2 puff inhalation Q6H PRN 11/07/24 Unknown Rx aerosol inhaler shortness of breath or wheezing #6.7 grams apixaban 5 mg tablet (Eliquis) 5 mg PO Q12 #60 tabs 11/07/24 Unknown Rx atorvastatin 10 mg tablet 10 mg PO DAILY #30 tabs 11/07/24 Unknown Rx cefdinir 300 mg capsule 600 mg (2 x 300 mg) PO DAILY #10 11/07/24 Unknown Rx caps citalopram 10 mg tablet 10 mg PO DAILY #30 tabs 11/07/24 Unknown Rx pantoprazole 40 mg tablet,delayed 40 mg PO DAILY #30 tabs 11/07/24 Unknown Rx release quetiapine 100 mg tablet 200 mg (2 x 100 mg) PO BID #120 11/07/24 Unknown Rx tabs trazodone 100 mg tablet 200 mg (2 x 100 mg) PO QHS #60 tabs 11/07/24 Unknown Rx vibegron 75 mg tablet (Gemtesa) 75 mg PO DAILY #30 tabs 11/07/24 Unknown Rx fesoterodine 4 mg tablet,extended 4 mg PO DAILY 11/14/24 Unknown History release 24 hr (Toviaz) hyoscyamine sulfate 0.375 mg PO 11/14/24 Unknown History tablet,extended release,12 hr lorazepam 0.5 mg tablet PO 11/14/24 Unknown History lovastatin 40 mg tablet 40 mg PO DAILY 11/14/24 Unknown History omeprazole 40 mg capsule,delayed 40 mg PO DAILY 11/14/24 Unknown History release quetiapine 200 mg tablet,extended PO 11/14/24 Unknown History release 24 hr sennosides 8.6 mg-docusate sodium 1 tab-cap PO DAILY 14 days #14 tabs 11/14/24 Unknown Rx 50 mg tablet (Senna with Docusate Sodium) spironolactone 25 mg tablet 25 mg PO DAILY 11/14/24 Unknown History Allergy/AdvReac Type Severity Reaction Status Date / Time Penicillins Allergy Intermediate Hives Verified 11/14/24 06:50 carbamazepine (From Tegretol) AdvReac Intermediate Nausea Verified 11/14/24 06:50 benztropine AdvReac Unknown Verified 11/14/24 06:50 diazepam (From Valium) AdvReac Other Verified 11/14/24 06:50 Sulfa (Sulfonamide AdvReac Nausea Verified 11/14/24 06:50 Antibiotics) thioridazine AdvReac Nausea Verified 11/14/24 06:50 thioridazine HCl (From AdvReac Other Verified 11/14/24 06:50 Mellaril) Family History Grandmother Cancer stomach Father Cancer lung Sister Breast cancer Surgical History Hx of surgical procedure History of carpal tunnel surgery History of elbow surgery H/O shoulder surgery H/O hand surgery H/O dilation and curettage Hx of cholecystectomy History of tonsillectomy Social History household members: other details: Living in apt with friends, now moving out without home at discharge. housing: homeless Smoking Status: Heavy Smoker (>10/day) alcohol intake: never substance use type: does not use caffeine: Yes what type of physical activity do you participate in: walking seatbelt use: always do you feel safe at home: Yes EXAM Physical Exam Const Vital Signs: 11/14/24 06:51 11/14/24 06:54 11/14/24 07:54 Temperature 97.7 F L 97.7 F L 98.9 F Temperature Source Oral Oral Oral Pulse Rate 99 93 89 Respiratory Rate 17 17 16 Blood Pressure 131/80 H 131/80 H 118/78 Blood Pressure Mean 97 97 91 Pulse Ox 98 98 95 Oxygen Delivery Method Room Air Room Air Room Air 11/14/24 09:00 11/14/24 09:25 11/14/24 10:00 Temperature 98.7 F 98.7 F Temperature Source Oral Oral Pulse Rate 92 79 78 Respiratory Rate 16 12 18 Blood Pressure 100/60 94/82 H 114/65 Blood Pressure Mean 73 86 81 Pulse Ox 91 91 92 Oxygen Delivery Method Room Air Room Air Room Air 11/14/24 11:00 Temperature 98.2 F Temperature Source Oral Pulse Rate 92 Respiratory Rate 16 Blood Pressure 117/71 Blood Pressure Mean 86 Pulse Ox 94 Oxygen Delivery Method Room Air MDM MDM MDM Narrative Medical decision making narrative: 64-year-old female with past medical history of bipolar disorder, tardive dyskinesia, COPD, DM2, CKD presents for evaluation of right lower quadrant abdominal pain. Patient was seen in the emergency department on 11/12 for same complaint. Recently admitted for UTI. Differential diagnosis includes but is not limited to UTI, pyelonephritis, appendicitis, gastroenteritis, electrolyte abnormality. NS bolus, Zofran, morphine ordered for symptoms. Abdominal pain workup ordere including CT abdomen pelvis. CBC without leukocytosis or anemia. CMP shows baseline CKD. No transaminitis. Lipase unremarkable. UA negative for UTI. CT abdomen pelvis shows mildly dilated appendix at 11 mm but is partially gas-filled without appreciable inflammation. Suspect normal variant. She has a partially imaged at least 1.6 cm right upper lobe nodule with mild mediastinal lymphadenopathy. Recommend nonurgent CT chest. Trace pelvic free fluid, nonspecific. Tiny hypodensity in the right kidney, likely a cyst. On reevaluation, patient states her pain is improved but still endorsing some pain in the right lower quadrant. Given that this is her second presentation for her symptoms as well as mildly enlarged dilated appendix, general surgery, Dr. Ham was consulted and patient was discussed. Low suspicion for appendicitis given location of her appendix as well as no leukocytosis or inflammation. Suspect it may be secondary to constipation. Plan is to discharge home on stool softeners and follow-up in our office. Patient was updated of all the results and the plan. She confirmed understanding. Strict return precautions were given. Patient's blood pressure became soft secondary to the morphine in the emergency department however this did improve. She was educated on her incidental findings and told to follow-up with PCP for this. Given patient is homeless, social work was consulted. Patient does not want any placement but in agreement to going to a homeless intermediate. Social work reached out to homeless shelters. Results pending. Patient will be monitored until further plan. Patient was declined a [facility] [place]. Patient will be discharged. She confirmed understanding. On reevaluation her pain has improved. Impression: 1. Right lower quadrant abdominal pain 2. Constipation Lab Data Labs: Laboratory Results - last 24 hr 04/30/25 04/30/25 04/30/25 06:57 06:57 07:30 WBC 8.8 Corrected WBC CERTIFIED TUMOR REGISTRAR RBC 4.56 Hgb 14.1 Hct 43.3 MCV 95.0 MCH 30.9 MCHC 32.6 RDW Std Deviation 47.9 H RDW Coeff of Robert 13.8 Plt Count 325 MPV 10.5 Immature Gran % (Auto) 0.200 Neut % (Auto) 68.6 Lymph % (Auto) 20.8 Wheeler % (Auto) 7.6 Eos % (Auto) 2.5 Baso % (Auto) 0.3 Absolute Neuts (auto) 6.0 Absolute Lymphs (auto) 1.83 Total Counted CERTIFIED TUMOR REGISTRAR Neutrophils % (Manual) CERTIFIED TUMOR REGISTRAR Band Neutrophils % CERTIFIED TUMOR REGISTRAR Lymphocytes % (Manual) CERTIFIED TUMOR REGISTRAR Monocytes % (Manual) CERTIFIED TUMOR REGISTRAR Eosinophils % (Manual) CERTIFIED TUMOR REGISTRAR Basophils % (Manual) CERTIFIED TUMOR REGISTRAR Metamyelocytes % CERTIFIED TUMOR REGISTRAR Myelocytes % CERTIFIED TUMOR REGISTRAR Promyelocytes % CERTIFIED TUMOR REGISTRAR Blast Cells % CERTIFIED TUMOR REGISTRAR Plasma Cell % (Manual) CERTIFIED TUMOR REGISTRAR Other Cells % CERTIFIED TUMOR REGISTRAR Nucleated RBC % 0 Nucleated RBCs/100 WBC CERTIFIED TUMOR REGISTRAR Differential Comment CERTIFIED TUMOR REGISTRAR Diff Path Review CERTIFIED TUMOR REGISTRAR Hypersegmented Neuts CERTIFIED TUMOR REGISTRAR Atypical Lymphocytes CERTIFIED TUMOR REGISTRAR Reactive Lymphocytes CERTIFIED TUMOR REGISTRAR Smudge Cells CERTIFIED TUMOR REGISTRAR Toxic Granulation CERTIFIED TUMOR REGISTRAR Toxic Vacuolation CERTIFIED TUMOR REGISTRAR Dohle Bodies CERTIFIED TUMOR REGISTRAR Debra Rods CERTIFIED TUMOR REGISTRAR Platelet Estimate CERTIFIED TUMOR REGISTRAR Plt Morphology Comment CERTIFIED TUMOR REGISTRAR RBC Morphology CERTIFIED TUMOR REGISTRAR CERTIFIED TUMOR REGISTRAR Polychromasia CERTIFIED TUMOR REGISTRAR Hypochromasia CERTIFIED TUMOR REGISTRAR Basophilic Stippling CERTIFIED TUMOR REGISTRAR Anisocytosis CERTIFIED TUMOR REGISTRAR Microcytosis CERTIFIED TUMOR REGISTRAR Macrocytosis CERTIFIED TUMOR REGISTRAR Spherocytes CERTIFIED TUMOR REGISTRAR Sickle Cells CERTIFIED TUMOR REGISTRAR Target Cells CERTIFIED TUMOR REGISTRAR Tear Drop Cells CERTIFIED TUMOR REGISTRAR Ovalocytes CERTIFIED TUMOR REGISTRAR Stomatocytes CERTIFIED TUMOR REGISTRAR Lam[place] Bodies CERTIFIED TUMOR REGISTRAR [place] Cells CERTIFIED TUMOR REGISTRAR Bite Cells CERTIFIED TUMOR REGISTRAR Crenated Cell CERTIFIED TUMOR REGISTRAR Acanthocytes (Spur) CERTIFIED TUMOR REGISTRAR Rouleaux CERTIFIED TUMOR REGISTRAR Schistocytes CERTIFIED TUMOR REGISTRAR Sodium 140 Potassium 4.2 Chloride 105 Carbon Dioxide 22.5 Anion Gap 12 BUN 17 Creatinine 1.31 H Estim Creat Clear Calc 55.91 Est GFR (MDRD) Non-Af 46 L BUN/Creatinine Ratio 12.9 Glucose 117 H Calcium 9.7 Total Bilirubin 0.41 AST 27 ALT 19 Alkaline Phosphatase 79 Total Protein 7.4 Albumin 4.2 Globulin 3.2 Albumin/Globulin Ratio 1.3 Lipase 24 Urine Color Yellow Urine Clarity Clear Urine pH 6.0 Ur Specific [place] 1.015 Urine Protein TNP Urine Glucose (UA) Normal Urine Ketones Negative Urine Occult Blood Negative Urine Nitrite Negative Urine Bilirubin Negative Urine Urobilinogen Normal Ur Leukocyte Esterase Negative Urine RBC 0 SEEN Urine WBC 0 SEEN Ur Squamous Epith Cells 0-5 SEEN Urine Bacteria 0 SEEN Urine Mucus 0 SEEN U Random Total Protein 6.9 Radiography Diagnostic Testing: Clinical Impression(s) from Imaging Studies Abdomen/Pelvis CT 11/14/24 08:35 IMPRESSION: 1. Appendix is technically mildly dilated but is partially gas-filled and without appreciable inflammation, suspect normal variant. Correlation with presentation and exam is necessary. 2. Partially imaged at least 1.6 cm RIGHT upper lobe nodule with mild mediastinal lymphadenopathy. Recommend nonurgent CT chest for complete visualization, ideally with IV contrast. 3. Trace pelvic free fluid, nonspecific but unexpected in a postmenopausal female. 4. Additional description as above. Reading Location: [id number] Discharge Plan Triage Chief Complaint: Abd Pain ED Provider: Wyatt Amos Dx/Rx/DC Orders Clinical Impression: Constipation, Abdominal pain, right lower quadrant Instructions: ED Constipation (Adult) Prescriptions: New sennosides-docusate sodium [Senna with Docusate Sodium] 8.6-50 mg tablet 1 tab-cap PO DAILY 14 Days Qty: 14 0RF No Action albuterol sulfate 90 mcg/actuation HFA aerosol inhaler 2 puff inhalation Q6H PRN (Reason: shortness of breath or wheezing) Qty: 6.7 0RF citalopram 10 mg Tablet 10 mg PO DAILY Qty: 30 0RF Eliquis 5 mg Tablet 5 mg PO Q12 Qty: 60 0RF cefdinir 300 mg capsule 600 mg PO DAILY Qty: 10 0RF atorvastatin 10 mg Tablet 10 mg PO DAILY Qty: 30 0RF quetiapine 100 mg Tablet 200 mg PO BID Qty: 120 0RF trazodone 100 mg Tablet 200 mg PO QHS Qty: 60 0RF pantoprazole 40 mg Tablet,Delayed Release (Dr/Ec) 40 mg PO DAILY Qty: 30 0RF Gemtesa 75 mg tablet 75 mg PO DAILY Qty: 30 0RF lovastatin 40 mg tablet 40 mg PO DAILY omeprazole 40 mg capsule,delayed release(DR/EC) 40 mg PO DAILY spironolactone 25 mg tablet 25 mg PO DAILY lorazepam 0.5 mg tablet PO hyoscyamine sulfate 0.375 mg tablet extended release 12 hr PO quetiapine 200 mg tablet extended release 24 hr PO fesoterodine [Toviaz] 4 mg tablet extended release 24 hr 4 mg PO DAILY Primary Care Provider: Homer Bradford Referrals: Homer Bradford MD [Primary Care Provider] - 3-5 Days Caitlyn Ham MD [Med Staff - Active Staff] - 3-5 Days Activity Restrictions/Additional Instructions: Follow-up with general surgery. Take all of your stool softeners. Return back to the ED if symptoms change or worsen. Your CT imaging showed a partially imaged 1.6 cm right upper lobe nodule with mild mediastinal lymphadenopathy. Recommend nonurgent CT chest outpatient. Follow-up with your primary care physician for this. You have a tiny hypodensity in the right kidney, likely cyst. Print Language: Indonesian Disposition Disposition: Home, Self Care
[2024-11-14] MEDS: Ondansetron 4 MG/2 ML Vial IV (07:16)
[2024-11-14] MEDS: 0.9% Normal Saline (1000mL) 1,000 ML 999 ML IV (07:16)
[2024-11-14] MEDS: Morphine 4 MG/ML Syringe IV (07:16)
[2024-11-14 07:23] LABS: Absolute Lymphocyte Count 1.83 X10^3/uL (0.83-4.51); Basophil# 0.03 X10^3/uL; Basophil% 0.3 % (0-1); Eosinophil# 0.22 X10^3/uL; Eosinophils% 2.5 % (0-5); Hematocrit 43.3 % (37-47); Hemoglobin 14.1 g/dL (12.0-15.0); Lymphocyte # 1.83 X10^3/ul (0.83-4.51); Lymphocyte % 20.8 % (19-41); Mean Corp Hgb Conc 32.6 g/dL (32-36); Mean Corpuscular Hgb 30.9 pg (27.0-32.0); Mean Platelet Vol. 10.5 fl (6.2-12.0); Monocyte# 0.67 X10^3/uL; Monocyte% 7.6 % (0-10); NRBC Flagged by Analyzer 0 % (0-5); Neutrophil # 6.03 X10^3/uL (2.7-7.7); Neutrophil % 68.6 % (47-70); Platelet Count 325 K/mm3 (150-450); RBC Distribution Width CV 13.8 % (11.6-14.6); RBC Distribution Width SD 47.9 fl (35.1-43.9); Red Blood Count 4.56 M/mm3 (4.2-5.4); White Blood Count 8.8 K/mm3 (4.4-11.0)
[2024-11-14 07:37] LABS: Bacteria 0 SEEN /hpf (None Seen); Mucous, Urine 0 SEEN /hpf (<or=2+); Red Blood Cells-Urine 0 SEEN /hpf (0-5); White Blood Cells 0 SEEN /hpf (0-5)
[2024-11-14 07:55] LABS: ALB/GLOB Ratio 1.3 RATIO (0.9-2.4); AST(SGOT) 27 U/L (<=31); Alanine Aminotransfer ALT/SGPT 19 U/L (<=34); Albumin, Serum 4.2 g/dL (3.4-4.8); Alkaline Phosphatase 79 U/L (35-104); Anion Gap 12 (5-15); BUN 17 mg/dL (4-19); BUN/Creat Ratio 12.9 RATIO (10-20); Calcium,Total 9.7 mg/dL (7.6-11.0); Carbon Dioxide 22.5 mmol/L (21.0-32.0); Chloride 105 mmol/L (98-108); Creatinine, Serum 1.31 mg/dL (0.70-1.20); EST Glomerular Filtration Rate 46 (>60); Estimated Creatinine Clearance 55.91 ml/min (50-250); Globulin 3.2 g/dL (2.2-4.2); Glucose 117 mg/dL (70-99); Lipase 24 U/L (13-75); Potassium 4.2 mmol/L (3.3-5.1); Protein, Total 7.4 g/dL (5.9-8.4); Sodium Level 140 mmol/L (133-145); Total Bilirubin 0.41 mg/dL (0.00-1.30)
--- NOTE | 2024-11-14 08:35 | CT_ITS ---
PROCEDURE: ABDOMEN/PELVIS W IV CONT ONLY 11/14/2024 REASON FOR EXAM: RIGHT LOWER QUADRANT PAIN TECHNIQUE: Abdomen and pelvis CT with intravenous contrast. Coronal and Sagittal reconstruction series were provided. PATIENT PREPARATION: Per protocol ORAL CONTRAST TYPE: None. CONTRAST: Isovue-300 VOLUME: 98 mL One or more dose reduction techniques were used (e.g., Automated exposure control, adjustment of the mA and/or kV according to patient size, use of iterative reconstruction technique. RADIATION DOSE SUMMARY: CTDlvol: 15.19+ 22.50 mGy DLP: 1227.86 mGycm COMPARISON: 01/12/2019; note that images only are available for review, the report is not available at the time of the dictation. FINDINGS: Exam limited by generalized photon starvation. Lung bases: Aortic annular calcification. Multivessel coronary atherosclerosis and/or stents. Partially imaged at least 1.3 x 1.6 cm nodular opacity in the RIGHT upper lobe abutting the scarring fissure. Subcarinal node, 16 mm short axis. Trace pericardial fluid. Elevated LEFT hemidiaphragm. Minimal atelectasis/scarring. Liver: Unremarkable. Spleen: Unremarkable. Gallbladder: Cholecystectomy. Similar mild dilatation of the CBD to 12 mm, likely post cholecystectomy effect. Pancreas: Unremarkable. Adrenals: Unremarkable. Kidneys: Tiny hypodensity on the RIGHT too small to characterize, likely a cyst.. Bowel: Minimal diverticulosis.. Appendix is technically mildly dilated to 11 mm but is partially gas-filled and without appreciable inflammation. Lymph nodes: Unremarkable. Vasculature: Moderate to advanced atherosclerosis.. Peritoneum: Trace pelvic free fluid. Bladder: Underdistended and suboptimally evaluated, grossly unremarkable. Reproductive Organs: Unremarkable. Body Wall: Unremarkable. Bones: Mild spondylosis. Suspect demineralization.. CT/Abdomen/Pelvis W IV Cont ONLY IMPRESSION: 1. Appendix is technically mildly dilated but is partially gas-filled and witho ut appreciable inflammation, suspect normal variant. Correlation with presentation and exam is necessary. 2. Partially imaged at least 1.6 cm RIGHT upper lobe nodule with mild mediastin al lymphadenopathy. Recommend nonurgent CT chest for complete visualization, ideally with IV contrast. 3. Trace pelvic free fluid, nonspecific but unexpected in a postmenopausal fema le. 4. Additional description as above. Reading Location: [id number]
[2024-11-14 08:52] LABS: Color, Urine Yellow (Yellow); Glucose, Dipstick Normal (Normal); Ketone-Dipstick Negative (Negative); Leukocyte Esterase-Dipstick Negative /ul (Negative); Nitrite-Dipstick Negative (Negative); Occult Blood-Urine Negative /ul (Negative); Specific Gravity, Urine 1.015 (1.002-1.030); Urine Bilirubin Dipstick Negative (Negative); Urine Clarity Clear (Clear); Urine Urobilinogen Normal (Normal)
[2024-11-14 09:03] LABS: Squamous Epithelial Cells - UA 0-5 SEEN /hpf (5-10)
[2024-11-14 10:27] LABS: Protein, Urine (Random) 6.9 mg/dL (0.0-12.0)
--- NOTE | 2024-11-14 11:34 | CM.ED ---
Social Work SW met with patient who denies need for assistance at this time. Sw did speak with patient regarding where she was sleeping, patient stated she was sleeping on the streets but she would rather do that than go to a long-term. When asked why, patient stated she knows what goes on in there and she doesnt want any part of it. SW asked about the availability of staying with family or friends, patient denied having anyone she would be able to stay with. Patient did agree for SW to contact [facility] and [facility] to see if there were any beds available. [facility] stated patient was not able to stay with them due to patients medical concerns. SW waiting animal surgeon back from [facility]. Lorena Tovar, SPOOLING OPERATOR, STAMPING DIE MAKER BENCH
--- NOTE | 2024-11-14 18:02 | CM.ED ---
Social Work SW contacted [facility] again and was told that they did not have a bed available for patient. Patient requesting to discharge to [facility]. SW confirmed that patient still had medication, shoes, and walker that were provided to her prior to discharge from last hospital stay. SW spoke with APS regarding patient discharging to [facility], APS asked SW to remind patient to watch for a call from [facility] as they were trying to reach patient. Patient also agreeable to contacting [facility] and requesting a showcase maker. SW helped patient make the call to [facility] and the initial referral has been made. [facility] van contacted and unable to provide ride for patient. [facility] transportation was contacted for flower buncher or picker, [facility] confirmed ability to flower buncher or picker patient within 2 hours. Confirmation number for ride: # [id number]. Lorena Tovar, ADMISSIONS MANAGER RN, DOCUMENT PROCESSOR
== END 2024-11-14 13:42 | disposition home or self-care (01) ==
PROVIDERS: Emergency Provider Surgery; PCP Family Medicine; Visit Provider Surgery
DX: R10.31 Right lower quadrant pain (principal); F31.9 Bipolar disorder, unspecified; J44.9 Chronic obstructive pulmonary disease, unspecified; I48.0 Paroxysmal atrial fibrillation; E11.22 Type 2 diabetes mellitus with diabetic chronic kidney disease; N18.30 Chronic kidney disease, stage 3 unspecified; E78.00 Pure hypercholesterolemia, unspecified; F17.200 Nicotine dependence, unspecified, uncomplicated; K59.00 Constipation, unspecified; Z59.00 Homelessness unspecified; Z86.73 Personal history of transient ischemic attack (TIA), and cerebral infarction without residual deficits; Z79.01 Long term (current) use of anticoagulants; Z79.899 Other long term (current) drug therapy; K21.9 Gastro-esophageal reflux disease without esophagitis; Z90.49 Acquired absence of other specified parts of digestive tract
CPT/HCPCS: 74177; 80053; 81001; 83690; 84156; 85025; 96361; 96374; 96375; 99284; Q9967; J2405

== ENCOUNTER 2025-01-08 16:27 | Inpatient (IN) | payer MEDICAID, SELFPAY ==
[2025-01-08] VITALS (20 sets, daily range): BP systolic 76–140; BP diastolic 40–87; PULSE 83–144; RESP 12–20; TEMP 36.6–39.6; O2SAT 90–100; BMI 46.7; BMI 45.8
--- NOTE | 2025-01-08 16:37 | EKG12_ITS ---
Test Reason : Blood Pressure : */* mmHG Vent. Rate : 131 BPM Atrial Rate : * BPM P-R Int : * ms QRS Dur : 90 ms QT Int : 408 ms P-R-T Axes : * 29 67 degrees QTcB Int : 602 ms Critical Test Result: Long QTc Sinus tachycardia Nonspecific ST abnormality Abnormal ECG Confirmed by JOSEPH GUSTAFSON, CHEL ([id number]), scientific editor JIGNA TERRAZAS ([id number]) on 01/09/2025 11:10:57 AM Referred By: Confirmed By: CHEL RUIZ MD
[2025-01-08] MEDS: 0.9% Normal Saline (1000mL) 1,000 ML 1000 ML IV ×3 (16:42→21:41)
--- NOTE | 2025-01-08 16:49 | EX.ED.CRITCA ---
HPI History of Present Illness Chief Complaint: Alt LOC Detail of Chief Complaint: Altered mental status, found down [place] Informant: EMS Onset/Context/Timing Onset: - (Patient with altered mental status. Lives at the [facility]) Quality: Altered mental status, tachycardia, febrile and hypoxic Mechanism/Context: Yes other Current Severity: Severe Maximum Severity: Severe Worsened by: Poor p.o. intake, environmental exposure on Lexapro Associated Symptoms Associated Symptoms: abdominal pain Narrative Narrative: Patient is a 64-year-old woman. She has history of stage III kidney disease due to type 1 diabetes, COPD with overlap with asthma, peripheral vascular disease, hyperlipidemia, bipolar affective disorder, BMI 46.8, tardive dyskinesia, nicotine addiction and history of paroxysmal atrial fibrillation. EKG that was transmitted from [facility] [facility] revealed a rate of 154 which raise concern for possible ability of atrial for flutter. EKG in the department shows a narrow complex tachycardia that I believe is sinus mechanism. QT is prolonged. There is nonseptic changes noted as well. [facility] Medical History Urinary tract infection History of echocardiogram Wears glasses Anxiety Depression Post-menopausal History of renal disease High cholesterol Back pain TIA (transient ischemic attack) Gastric reflux Smoker Shortness of breath on exertion History of pain when walking History of edema Cardiology follow-up encounter History of heart attack Chest pain History of left heart catheterization (LHC) (~12/30/20) CKD (chronic kidney disease) stage 3, GFR 30-59 ml/min Lung nodule COPD (chronic obstructive pulmonary disease) Paroxysmal atrial fibrillation Elevated liver enzymes Acute respiratory failure with hypoxia Stroke IBS (irritable bowel syndrome) Hyperlipidemia Heart disease Migraines Frequent headaches Gastrointestinal problem Diabetes History of back problems Asthma Arthritis Home Medications ?Medication ?Instructions ?Recorded ?Last Taken ?Type albuterol sulfate 90 mcg/actuation 2 puff inhalation Q6H PRN 11/07/24 Unknown Rx aerosol inhaler shortness of breath or wheezing #6.7 grams apixaban 5 mg tablet (Eliquis) 5 mg PO Q12 #60 tabs 11/07/24 Unknown Rx citalopram 10 mg tablet 10 mg PO DAILY #30 tabs 11/07/24 Unknown Rx quetiapine 100 mg tablet 200 mg (2 x 100 mg) PO BID #120 11/07/24 Unknown Rx tabs trazodone 100 mg tablet 200 mg (2 x 100 mg) PO QHS #60 tabs 11/07/24 Unknown Rx lorazepam 0.5 mg tablet 0.5 mg PO Q12H PRN anxiety 11/14/24 Unknown History lovastatin 40 mg tablet 20 mg PO QHS 11/14/24 Unknown History omeprazole 40 mg capsule,delayed 40 mg PO DAILY 11/14/24 Unknown History release aspirin 81 mg capsule 81 mg PO DAILY 01/08/25 Unknown History furosemide 20 mg tablet 20 mg PO BID 01/08/25 Unknown History ipratropium 0.5 mg-albuterol 3 mg 3 ml inhalation Q20M PRN shortness 01/08/25 Unknown History (2.5 mg base)/3 mL nebulization of breath soln Allergy/AdvReac Type Severity Reaction Status Date / Time Penicillins Allergy Intermediate Hives Verified 01/08/25 16:28 carbamazepine (From Tegretol) AdvReac Intermediate Nausea Verified 01/08/25 16:28 benztropine AdvReac Unknown Verified 01/08/25 16:28 diazepam (From Valium) AdvReac Other Verified 01/08/25 16:28 Sulfa (Sulfonamide AdvReac Nausea Verified 01/08/25 16:28 Antibiotics) thioridazine AdvReac Nausea Verified 01/08/25 16:28 thioridazine HCl (From AdvReac Other Verified 01/08/25 16:28 Mellar[place]) Family History Grandmother Cancer stomach Father Cancer lung Sister Breast cancer Surgical History Hx of surgical procedure History of carpal tunnel surgery History of elbow surgery H/O shoulder surgery H/O hand surgery H/O dilation and curettage Hx of cholecystectomy History of tonsillectomy Social History household members: other details: Living in apt with friends, now moving out without home at discharge. housing: homeless Smoking Status: Heavy Smoker (>10/day) alcohol intake: never substance use type: does not use caffeine: Yes what type of physical activity do you participate in: walking seatbelt use: always do you feel safe at home: Yes ROS ROS ED Review of Systems ROS Unobtainable: due to mental status EXAM Physical Exam Const Vital Signs: 01/08/25 16:29 01/08/25 16:34 01/08/25 17:00 Temperature 103.3 F H 103.3 F H Temperature Source Axillary Oral Pulse Rate 144 H 142 H Respiratory Rate 18 20 H Blood Pressure 129/55 H 129/55 H Blood Pressure Mean 79 79 Pulse Ox 90 92 Oxygen Delivery Method Nasal Cannula Nasal Cannula Nasal Cannula Oxygen Flow Rate (L/min) 3 3 3 01/08/25 17:02 01/08/25 17:32 01/08/25 18:00 Temperature 102.1 F H 100.5 F H 99.2 F H Temperature Source Core Oral Core Pulse Rate 114 H 105 H 103 H Respiratory Rate 19 H 15 15 Blood Pressure 95/81 H 100/65 104/76 Blood Pressure Mean 85 76 85 Pulse Ox 94 93 95 Oxygen Delivery Method Nasal Cannula Nasal Cannula Nasal Cannula Oxygen Flow Rate (L/min) 3 3 3 01/08/25 18:30 01/08/25 19:00 01/08/25 19:30 Temperature 98.7 F 98.5 F 98.4 F Temperature Source Core Core Core Pulse Rate 96 95 94 Respiratory Rate 12 16 18 Blood Pressure 126/86 H 131/82 H 108/56 L Blood Pressure Mean 99 98 73 Pulse Ox 100 100 100 Oxygen Delivery Method Nasal Cannula Nasal Cannula Nasal Cannula Oxygen Flow Rate (L/min) 3 3 3 01/08/25 19:30 Temperature 98.4 F Temperature Source Pulse Rate 93 Respiratory Rate 18 Blood Pressure 108/56 L Blood Pressure Mean 73 Pulse Ox 100 Oxygen Delivery Method Oxygen Flow Rate (L/min) Positive well nourished, well developed and obese Constitutional Narrative: Patient sunburn. Altered mental status. Clinically dehydrated. General Appearance ED: well developed; Negative for pallor Nutritional Appearance: obese HEENT HEENT Narrative: Mucosa is dry. normocephalic and atraumatic; Negative for cyanosis of lips/distal nose Eyes PERRL and EOMs intact bilaterally General Eye ED: Negative for pale conjunctiva or scleral icterus Neck full ROM, no lymphadenopathy and supple Chest Wall Chest Narrative: Unremarkable. From the bra line up patient is sunburned. Resp Resp Narrative: Diminished breath sounds bilaterally with bibasilar rales. Cardio regular rhythm, S1 normal heart sound, S2 normal heart sound and no murmurs Rate: tachycardic GI non-tender, non-distended and no masses Inspection: Negative for abdominal distention Palpation: soft Extremity Extremity Narrative: There is no clubbing or cyanosis. Capillary fill is normal. Do not appreciate PT pulse either side. Neuro No oriented x3, CN's II-XII intact bilaterally and no sensory deficits noted Neuro Narrative: Patient is not awake. She is very slow to respond. She does not know her age. She does not know the month. She does know the year. Sensorium / Orientation: oriented to person, oriented to place and confused; Negative for alert Psych Negative for mental status grossly normal Skin General Skin Exam: Negative for jaundice or pallor Lesions: no lesions Rashes: no rashes Sepsis Attestation Sepsis Alert: Yes Date exam was performed: 01/08/25 Time exam was performed: 18:16 (Made aware of alert however no obvious source and there is other potential causes for her presentation.) Possible Source of Sepsis: Genitourinary Sepsis Organ Dysfunction Criteria Present: Lactic Acid > 2 mmol/L and New/Unexplained change in mental status Supportive Findings: Suspect this is due to environmental exposure unless her urine is indicative of infection. Time of this entry 1815. Fluid Resuscitation Fluid resuscitation indicated?: Yes Fluid Resuscitation ordered: 30 ml/kg fluid bolus ordered Amount of fluid ordered: 3,350 MDM MDM MDM Narrative Medical decision making narrative: Fact the patient was found down on Eliquis need to evaluate for intracranial bleed, need to evaluate for infectious and metabolic cause. There is also concern for heatstroke. Cooling blanket was applied. Patient had ice in her axillas and groin. History & Record Review Additional record(s) reviewed:: Prior outpatient record (22 page correspondence from outside facility was reviewed. Patient was admitted for failure to thrive and multiple other medical problems. Most recent med list was given to her primary care nurse. Will compare today's lab results to lab results from [facility] Prior ED visit and Prior labs Lab Data Attestation: I reviewed the patient's lab results. Lab results narrative: Comprehensive metabolic panel is remarkable for a BUN of 17 and a creatinine of 1.82. Baseline creatinine is 1.3. CBC is unremarkable. Coags are normal. Tox screen is presumptive positive for benzos. Macro urine is positive for bilirubin, urobilinogen, leukoesterase, blood and negative for nitrites. Urine is slightly cloudy with a Cerva gravity of 1.02. Labs: Laboratory Results - last 24 hr 01/08/25 16:41 WBC 9.8 RBC 4.42 Hgb 13.5 Hct 41.1 MCV 93.0 MCH 30.5 MCHC 32.8 RDW Std Deviation 46.9 H RDW Coeff of Robert 13.7 Plt Count 245 MPV 10.5 Immature Gran % (Auto) 0.100 Neut % (Auto) 76.0 H Lymph % (Auto) 15.8 L [place] % (Auto) 6.6 Eos % (Auto) 1.3 Baso % (Auto) 0.2 Absolute Neuts (auto) 7.4 Absolute Lymphs (auto) 1.55 Nucleated RBC % 0 PT 14.3 INR 1.1 APTT 27.1 Sodium 140 Potassium 3.4 Chloride 105 Carbon Dioxide 18.9 L Anion Gap 16 H BUN 17 Creatinine 1.82 H Estim Creat Clear Calc 38.69 L Est GFR (MDRD) Non-Af 31 L BUN/Creatinine Ratio 9.2 L Glucose 138 H Lactic Acid 3.9 H* Calcium 8.7 Total Bilirubin 0.39 AST 18 ALT 8 Alkaline Phosphatase 77 Total Protein 6.4 Albumin 3.7 Globulin 2.7 Albumin/Globulin Ratio 1.4 Lipase 22 Urine Color Yellow Urine Clarity Sl. Cloudy Urine pH 6.0 Ur Specific [place] 1.020 Urine Protein 30 H Urine Glucose (UA) Normal Urine Ketones Negative Urine Occult Blood 25 H Urine Nitrite Negative Urine Bilirubin 1 H Urine Urobilinogen 1 H Ur Leukocyte Esterase 100 H Urine RBC 0-5 SEEN Urine WBC 25-50 SEEN Ur Squamous Epith Cells 5-10 SEEN Ur Transition Epith Cell 0-5 SEEN Urine Bacteria 2+ Urine Mucus 0 SEEN Urine Opiates Screen NEGATIVE U Buprenorphine Qual NEGATIVE Ur Oxycodone Screen NEGATIVE Urine Methadone Screen NEGATIVE Urine Fentanyl Screen NEGATIVE Ur Barbiturates Screen NEGATIVE Ur Phencyclidine Scrn NEGATIVE Ur Amphetamines Screen NEGATIVE U Benzodiazepines Scrn PRESUMPTIVE POSITIVE Urine Cocaine Screen NEGATIVE U Cannabinoids Screen NEGATIVE Ethyl Alcohol < 10.1 ABG Data Attestation: I personally reviewed and interpreted this ABG as follows: Interpretation: ABG reveals an increased AA gradient. Patient's oxygen was increased to 4.5 L. pH is elevated slightly. Bicarb is slightly low. CO2 is elevated. This is a mixed acid-base picture. ABG results: ABG 01/08/25 16:58 Specimen Type ART Sample Site R BRACHIAL pH 7.46 H Bicarbonate Actual 21.1 L Total CO2 22 Base Excess -3 L O2 Saturation 91 L ABG pCO2 29.6 L ABG pO2 55 L Liter Flow 3.0 Radiography Chest X-Ray - ED: 1 View and Read by ED Physician (Patient is rotated. No obvious infiltrate or effusion. No mention of pneumothorax. Cardiac silhouette is normal. Difficult to assess size. Osseous structures appear unremarkable. There is no evidence of pneumothorax. Independent review interpreted by ma at 1719.) Diagnostic Testing: Clinical Impression(s) from Imaging Studies Brain CT 01/08/25 16:50 IMPRESSION: Slightly limited exam, without evidence of an acute intracranial abnormality. Senescent changes. Reading Location: [id number] Chest X-Ray 01/08/25 17:00 IMPRESSION: Slightly limited exam, without definite evidence of an acute cardiopulmonary abnormality. Reading Location: [id number] CT of the head was reviewed by me at 1700. There is no evidence of subdural hematoma, epidural hematoma, parenchymal contusion or subarachnoid hemorrhage. There is no fluid in the sinuses. There is no extracranial hematoma noted. EKG Initial EKG: Attestation: I personally reviewed and interpreted this EKG as follows: Interpretation: Sinus Tachycardia Management Discussion w/another healthcare provider: Hospitalist (Spoke to Dr. Vela. Due to the patient's complex that he and altered mental status and sepsis will admit to ICU) Treatment and Re-Evaluation Narrative: Since patient does not have a white count she was not started on antibiotics. If urine micro is suggestive of an infection we will treat with appropriate antibiotics. She has hives to penicillin and nausea to sulfa. Patient's heart rate has improved with IV fluids. She has had a drop in her blood pressure. Systolic and mean arterial are above 90 and 65 respectively. Uncertain why she is hypoxic. She may have aspirated. Since patient's heart rate and temperature improved with therapy suspect this is due to environmental exposure with heat index of approximately 100. UA results were available and reviewed at 1849. UA is consistent with infection. Since patient has elevated lactate will obtain blood cultures x 2 and sent urine culture. Will obtain cultures prior to administration of levofloxacin. 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
--- NOTE | 2025-01-08 16:50 | CT_ITS ---
PROCEDURE: BRAIN/HEAD WITHOUT CONTRAST 01/08/2025 REASON FOR EXAM: ALTERED MENTAL STATUS, ON ANTICOAGULANT TECHNIQUE: BRAIN/HEAD WITHOUT CONTRAST Coronal and Sagittal reconstruction series were provided. One or more dose reduction techniques were used (e.g., Automated exposure control, adjustment of the mA and/or kV according to patient size, use of iterative reconstruction technique. RADIATION DOSE SUMMARY: CTDlvol: 47.1 mGy DLP: 890 mGycm COMPARISON: MRI brain and CT head 09/12/2024 FINDINGS: Streak artifact limits evaluation of the skull base, to include the brainstem and posterior fossa. Brain: No acute intracranial hemorrhage, mass effect, or midline shift. Unchanged hypodensity in the left basal ganglia. [id number] chronic microvascular ischemic changes. CSF Spaces: Mild generalized cerebral atrophy Sinuses/Mastoids: Clear at visualized levels Bones: Unremarkable CT/Brain/Head without Contrast IMPRESSION: Slightly limited exam, without evidence of an acute intracranial abnormality. Senescent changes. Reading Location: [facility]
[2025-01-08 16:59] LABS: Mucous, Urine 0 SEEN /hpf (<or=2+)
--- NOTE | 2025-01-08 17:00 | RAD_ITS ---
PROCEDURE: CHEST 1 VIEW (PORTABLE) 01/08/2025 REASON FOR EXAM: TACHYPNEA AND HYPOXIA TECHNIQUE: Frontal view of the chest. COMPARISON: Chest radiograph on 09/12/2024 FINDINGS: Hardware: None Heart: Cardiac and mediastinal contours are unchanged. Aortic atherosclerosis Lungs: Limited evaluation due to patient rotation. No definite focal consolidation or pleural effusion. Bones: Surgical anchor in the right humeral head. Degenerative changes of the shoulders and spine. RAD/Chest 1 View (Portable) IMPRESSION: Slightly limited exam, without definite evidence of an acute cardiopulmonary ab normality. Reading Location: [id number]
[2025-01-08 17:03] LABS: Absolute Lymphocyte Count 1.55 X10^3/uL (0.83-4.51); Absolute Neutrophil Count 7.4 X10^3/uL (2.0-7.7); Basophil# 0.02 X10^3/uL; Basophil% 0.2 % (0-1); Eosinophil# 0.13 X10^3/uL; Eosinophils% 1.3 % (0-5); Hematocrit 41.1 % (37-47); Hemoglobin 13.5 g/dL (12.0-15.0); Lymphocyte # 1.55 X10^3/ul (0.83-4.51); Lymphocyte % 15.8 % (19-41); Mean Corp Hgb Conc 32.8 g/dL (32-36); Mean Corpuscular Hgb 30.5 pg (27.0-32.0); Mean Platelet Vol. 10.5 fl (6.2-12.0); Monocyte# 0.65 X10^3/uL; Monocyte% 6.6 % (0-10); NRBC Flagged by Analyzer 0 % (0-5); Neutrophil # 7.42 X10^3/uL (2.7-7.7); Platelet Count 245 K/mm3 (150-450); RBC Distribution Width CV 13.7 % (11.6-14.6); RBC Distribution Width SD 46.9 fl (35.1-43.9); Red Blood Count 4.42 M/mm3 (4.2-5.4); White Blood Count 9.8 K/mm3 (4.4-11.0)
[2025-01-08 17:07] LABS: Color, Urine Yellow (Yellow); Glucose, Dipstick Normal (Normal); Ketone-Dipstick Negative (Negative); Leukocyte Esterase-Dipstick 100 /ul (Negative); Nitrite-Dipstick Negative (Negative); Occult Blood-Urine 25 /ul (Negative); Protein-Dipstick 30 mg/dl (Negative); Urine Clarity Sl. Cloudy (Clear); Urine Urobilinogen 1 mg/dl (Normal)
[2025-01-08 17:14] LABS: International Normalized Ratio 1.1; Prothrombin Time (Protime)PT. 14.3 SECONDS (11.7-14.9)
[2025-01-08 17:15] LABS: Partial Thromboplast Time 27.1 Seconds (24.1-36.2)
[2025-01-08 17:22] LABS: Alcohol, Blood (Medical)-Serum < 10.1 mg/dL (<=10.0); Amphetamine Urine NEGATIVE (<1000 ng/mL); Barbiturate Urine NEGATIVE (< 200 ng/mL); Benzodiazepine Urine PRESUMPTIVE POSITIVE (< 200 ng/mL); Buprenorphine Urine NEGATIVE (< 200 ng/mL); Cocaine Urine NEGATIVE (< 300 ng/mL); Fentanyl, Urine NEGATIVE; Methadone Urine NEGATIVE (< 300 ng/mL); Opiates Urine NEGATIVE (< 300 ng/mL); Oxycodone, Urine NEGATIVE (< 100 ng/mL); PCP Urine NEGATIVE (< 25 ng/mL); THC Urine NEGATIVE (< 50 ng/mL)
[2025-01-08 17:23] LABS: ALB/GLOB Ratio 1.4 RATIO (0.9-2.4); AST(SGOT) 18 U/L (<=31); Alanine Aminotransfer ALT/SGPT 8 U/L (<=34); Albumin, Serum 3.7 g/dL (3.4-4.8); Alkaline Phosphatase 77 U/L (35-104); Anion Gap 16 (5-15); BUN 17 mg/dL (4-19); BUN/Creat Ratio 9.2 RATIO (10-20); Calcium,Total 8.7 mg/dL (7.6-11.0); Carbon Dioxide 18.9 mmol/L (21.0-32.0); Chloride 105 mmol/L (98-108); Creatinine, Serum 1.82 mg/dL (0.70-1.20); EST Glomerular Filtration Rate 31 (>60); Estimated Creatinine Clearance 38.69 ml/min (50-250); Globulin 2.7 g/dL (2.2-4.2); Glucose 138 mg/dL (70-99); Lipase 22 U/L (13-75); Potassium 3.4 mmol/L (3.3-5.1); Protein, Total 6.4 g/dL (5.9-8.4); Sodium Level 140 mmol/L (133-145); Total Bilirubin 0.39 mg/dL (0.00-1.30)
[2025-01-08 17:35] LABS: Urine Bilirubin Dipstick 1 mg/dL (Negative)
[2025-01-08 17:46] LABS: Base Excess -3 mmol/L (-2 to +2); Bicarbonate 21.1 mmol/L (22-26); Blood Gas Specimen Type ART; PO2 55 mmHG (75-100); SITE R BRACHIAL; SO2 91 % (95-99); Total Carbon Dioxide 22 mmol/L; pCO2 29.6 mmHg (35-45); pH 7.46 (7.35-7.45)
[2025-01-08 17:59] LABS: Lactic Acid 3.9 mmol/L (0.0-2.0)
[2025-01-08 18:31] LABS: White Blood Cells 25-50 SEEN /hpf (0-5)
[2025-01-08 18:32] LABS: Squamous Epithelial Cells - UA 5-10 SEEN /hpf (5-10)
[2025-01-08 18:33] LABS: Bacteria 2+ /hpf (None Seen); Transitional Epithelial - Ur 0-5 SEEN /hpf (0-5)
[2025-01-08 18:34] LABS: Red Blood Cells-Urine 0-5 SEEN /hpf (0-5)
--- NOTE | 2025-01-08 19:14 | HP.PCM.HOS_ITS ---
HPI - General General Date of Admission: 01/08/25 Date of Service: 01/08/25 Chief Complaint: Confusion HPI Narrative The patient is a 64 y/o F w/ PMHx: Morbidly obese, HTN, HLD, CKD stage III unclear subtype, Hx TIA, Anxiety and Depression/bipolar disorder, PAF, GERD, Tobacco use, Chronic COPD/asthma who presents to the [facility] ED on 01/08/25 with history of altered mental status found at the [facility] where she has been living secondary to homeless status noted to be confused, tachycardic, hypoxic and febrile upon EMS evaluation with possibly generalized abdominal discomfort but uncertain as patient was a poor historian upon initial ED evaluation prompting EMS to bring her to the hospital for evaluation. Workup in the ED included T103.3, heart rate 144, BP 129/55, respiratory rate 18, 90% on 3 L nasal cannula with most recent repeat vitals T99.2, heart rate 103, BP 104/76, respiratory rate 15, 95% on 3 L nasal cannula, CBC with WBC 9.8, human 13.5, platelet 245 without marked shift, unremarkable coags, ABG with pH 7.46, bicarb 21.1, O2 saturation 91%, pCO2 29.6, PO255 on 3 L, CMP with carbon oxide 18.9, anion gap 16, BUN/creatinine 17/1.82, GFR 31, glucose 138, initial lactic acid 3.9 with repeat less than 1 following ED initiated 30 cc/kg IV fluid bolus, unremarkable hepatic profile, urine noted to be cloudy, specific roughly 1.20, urine protein 30, occult blood 25, negative nitrite, leukocyte Estrace 100 with urine RBCs 25-50, 2+ urine bacteria, urine culture pending per ED, UDS with presumptive positive benzodiazepines, ethyl alcohol level less than 10.1, CT brain with no acute intracranial finding, chest x-ray with no acute cardiopulmonary findings, EKG with sinus tachycardia with no acute evidence of ischemia. In the ED patient ministered 30 cc/kg IV fluids, Levaquin 750 mg IV x 1 given allergy history. [facility] Medical History Urinary tract infection History of echocardiogram Wears glasses Anxiety Depression Post-menopausal History of renal disease High cholesterol Back pain TIA (transient ischemic attack) Gastric reflux Smoker Shortness of breath on exertion History of pain when walking History of edema Cardiology follow-up encounter History of heart attack Chest pain History of left heart catheterization (LHC) (~12/30/20) CKD (chronic kidney disease) stage 3, GFR 30-59 ml/min Lung nodule COPD (chronic obstructive pulmonary disease) Paroxysmal atrial fibrillation Elevated liver enzymes Acute respiratory failure with hypoxia Stroke IBS (irritable bowel syndrome) Hyperlipidemia Heart disease Migraines Frequent headaches Gastrointestinal problem Diabetes History of back problems Asthma Arthritis Home Medications ?Medication ?Instructions ?Recorded ?Last Taken ?Type albuterol sulfate 90 mcg/actuation 2 puff inhalation Q 6H PRN 11/07/24 Unknown Rx aerosol inhaler shortness of breath or wheez ing #6.7 grams apixaban 5 mg tablet (Eliquis) 5 mg PO Q12 #60 tabs Unknown Rx citalopram 10 mg tablet 10 mg PO DAILY #30 tabs 10/17 10/09 Unknown Rx quetiapine 100 mg tablet 200 mg (2 x 100 mg) PO BID # 120 11/07/24 Unknown Rx tabs trazodone 100 mg tablet 200 mg (2 x 100 mg) PO QHS # 60 tabs 11/07/24 Unknown Rx lorazepam 0.5 mg tablet 0.5 mg PO Q12H PRN anxiety 0 11/14/24 Unknown History lovastatin 40 mg tablet 20 mg PO QHS 11/14/24 Unknow n History omeprazole 40 mg capsule,delayed 40 mg PO DAILY Unknown History release aspirin 81 mg capsule 81 mg PO DAILY 01/08/25 Unkn own History furosemide 20 mg tablet 20 mg PO BID 01/08/25 Unknow n History ipratropium 0.5 mg-albuterol 3 mg 3 ml inhalation Q20M PRN shortness 01/08/25 Unknown History (2.5 mg base)/3 mL nebulization of breath soln Allergy/AdvReac Type Severity Reaction Status Date / Time Penicillins Allergy Intermediate Hives Verified 01/08/25 16:28 carbamazepine (From Tegretol) AdvReac Intermediate Nausea Verified 01/08/25 16:28 benztropine AdvReac Unknown Verified 01/08/25 16:28 diazepam (From Valium) AdvReac Other Verified 01/08/25 16:28 Sulfa (Sulfonamide AdvReac Nausea Verified 01/08/25 16:28 Antibiotics) thioridazine AdvReac Nausea Verified 01/08/25 16:28 thioridazine HCl (From AdvReac Other Verified 01/08/25 16:28 Mellaril) Family History Grandmother Cancer stomach Father Cancer lung Sister Breast cancer Surgical History Hx of surgical procedure History of carpal tunnel surgery History of elbow surgery H/O shoulder surgery H/O hand surgery H/O dilation and curettage Hx of cholecystectomy History of tonsillectomy Social History household members: other details: Living in apt with friends, now moving out without home at discharge. housing: homeless Smoking Status: Heavy Smoker (>10/day) alcohol intake: never substance use type: does not use caffeine: Yes what type of physical activity do you participate in: walking seatbelt use: always do you feel safe at home: Yes ROS ROS Narrative Admission Review of Systems: CONSTITUTIONAL: No weight loss, + fever, chills, weakness or fatigue. HEENT: Eyes: No visual loss, blurred vision, double vision or yellow sclerae. Ears, Nose, Throat: No hearing loss, sneezing, congestion, runny nose or sore throat. SKIN: No rash or itching, lesions, wounds except for + occasional stage ecchymoses, abrasions. CARDIOVASCULAR: + Palpitations. No chest pain, chest pressure or chest discomfort, edema, orthopnea, syncopal events. RESPIRATORY: + Chronic dyspnea, worse with exertion, occasional wheezing. No recent productive cough, hemoptysis. GASTROINTESTINAL: No anorexia, nausea, vomiting or diarrhea, abdominal pain, melena, BRBPR. GENITOURINARY: + Dysuria, increased urinary frequency. No urgency or retention. NEUROLOGICAL: + Transient confusion. No headache, dizziness, syncope, paralysis, ataxia, numbness or tingling in the extremities, focal weakness, change in bowel or bladder control, seizure. MUSCULOSKELETAL: + muscle, back pain, joint pain or stiffness. HEMATOLOGIC: No anemia, bleeding or bruising. LYMPHATICS: No enlarged nodes. No history of splenectomy. PSYCHIATRIC: + History of anxiety and depression/bipolar disorder. ENDOCRINOLOGIC: No reports of sweating, cold or heat intolerance. No polyuria or polydipsia. ALLERGIES: + History of asthma. Vital Signs Vital Signs Vital Signs: 01/08/25 16:29 01/08/25 16:34 01/08/25 17:00 Temperature 103.3 F H 103.3 F H Temperature Source Axillary Oral Pulse Rate 144 H 142 H Respiratory Rate 18 20 H Blood Pressure 129/55 H 129/55 H Blood Pressure Mean 79 79 Pulse Ox 90 92 Oxygen Delivery Method Nasal Cannula Nasal Cannula Nasal Cannula Oxygen Flow Rate (L/min) 3 3 3 01/08/25 17:02 01/08/25 17:32 01/08/25 18:00 Temperature 102.1 F H 100.5 F H 99.2 F H Temperature Source Core Oral Core Pulse Rate 114 H 105 H 103 H Respiratory Rate 19 H 15 15 Blood Pressure 95/81 H 100/65 104/76 Blood Pressure Mean 85 76 85 Pulse Ox 94 93 95 Oxygen Delivery Method Nasal Cannula Nasal Cannula Nasal Cannula Oxygen Flow Rate (L/min) 3 3 3 01/08/25 18:30 Temperature 98.7 F Temperature Source Core Pulse Rate 96 Respiratory Rate 12 Blood Pressure 126/86 H Blood Pressure Mean 99 Pulse Ox 100 Oxygen Delivery Method Nasal Cannula Oxygen Flow Rate (L/min) 3 Weight Weight: 255 lb 11.779 oz Body Mass Index (BMI) 46.7 Physical Exam Narrative Physical Examination: General: Patient with improved mental status, alert, awake, oriented to self, place and some recent events, currently no acute distress but fatigued. Skin: Normal color, normal turgor, no icterus, no cyanosis except for occasional stage ecchymoses, abrasions. HEENT: AT/NC, EOMI, PERRLA, dry MM, no carotid bruits or JVD noted. Lungs: Mildly diminished, greater bases, occasional end expiratory wheeze, no evidence of any distress, no rales or rhonchi. Heart: Mildly tachycardic with regular rhythm; no gallop, rub audible. Abdomen: Soft, morbidly obese, mild tenderness to palpation of the suprapubic region otherwise abdomen NTTP, mildly hyperactive BS, difficult to discern distention HSM given habitus Extremities: No cyanosis, no clubbing, mild ankle to distal candelaria not markedly pitting edema. Neurological: Patient awake, alert, oriented as noted, clinically improved, cognitive function suspect nearing baseline intact, pupils equally reactive to light and accommodation, cranial nerves gross normal, moving all 4 extremities, no focal deficits, strength moderately to severely global decreased. Psychiatric: Affect appears flat, fatigued, no acute evidence of depressive or anxiety feelings but does have underlying history. Results Lab / Micro Data 01/08/25 16:41 01/08/25 16:41 Labs: Laboratory Results - last 24 hr 01/08/25 16:41: WBC 9.8, RBC 4.42, Hgb 13.5, Hct 41.1, MCV 93.0, MCH 30.5, MCHC 32.8, RDW Std Deviation 46.9 H, RDW Coeff of Robert 13.7, Plt Count 245, MPV 10.5, Immature Gran % (Auto) 0.100, Neut % (Auto) 76.0 H, Lymph % (Auto) 15.8 L, Tyler % (Auto) 6.6, Eos % (Auto) 1.3, Baso % (Auto) 0.2, Absolute Neuts (auto) 7.4, Absolute Lymphs (auto) 1.55, Nucleated RBC % 0, PT 14.3, INR 1.1, APTT 27.1, Sodium 140, Potassium 3.4, Chloride 105, Carbon Dioxide 18.9 L, Anion Gap 16 H, BUN 17, Creatinine 1.82 H, Estim Creat Clear Calc 38.69 L, Est GFR (MDRD) Non-Af 31 L, BUN/Creatinine Ratio 9.2 L, Glucose 138 H, Lactic Acid 3.9 H*, Calcium 8.7, Total Bilirubin 0.39, AST 18, ALT 8, Alkaline Phosphatase 77, Total Protein 6.4, Albumin 3.7, Globulin 2.7, Albumin/Globulin Ratio 1.4, Lipase 22, Urine Color Yellow, Urine Clarity Sl. Cloudy, Urine pH 6.0, Ur Specific Elsie 1.020, Urine Protein 30 H, Urine Glucose (UA) Normal, Urine Ketones Negative, Urine Occult Blood 25 H, Urine Nitrite Negative, Urine Bilirubin 1 H, Urine Urobilinogen 1 H, Ur Leukocyte Esterase 100 H, Urine RBC 0-5 SEEN, Urine WBC 25- 50 SEEN, Ur Squamous Epith Cells 5-10 SEEN, Ur Transition Epith Cell 0-5 SEEN, Urine Bacteria 2+, Urine Mucus 0 SEEN, Urine Opiates Screen NEGATIVE, U Buprenorphine Qual NEGATIVE, Ur Oxycodone Screen NEGATIVE, Urine Methadone Screen NEGATIVE, Urine Fentanyl Screen NEGATIVE, Ur Barbiturates Screen NEGATIVE, Ur Phencyclidine Scrn NEGATIVE, Ur Amphetamines Screen NEGATIVE, U Benzodiazepines Scrn PRESUMPTIVE POSITIVE, Urine Cocaine Screen NEGATIVE, U Cannabinoids Screen NEGATIVE, Ethyl Alcohol < 10.1 ABG Data ABG results: ABG 01/08/25 16:58 Specimen Type ART Sample Site R BRACHIAL pH 7.46 H Bicarbonate Actual 21.1 L Total CO2 22 Base Excess -3 L O2 Saturation 91 L ABG pCO2 29.6 L ABG pO2 55 L Liter Flow 3.0 Imaging Radiology Impression Brain CT 01/08/25 16:50 IMPRESSION: Slightly limited exam, without evidence of an acute intracranial abnormality. Senescent changes. Reading Location: [id number] Chest X-Ray 01/08/25 17:00 IMPRESSION: Slightly limited exam, without definite evidence of an acute cardiopulmonary abnormality. Reading Location: [id number] Assessment & Plan Assessment/Plan (1) Sepsis: (2) Complicated urinary tract infection: PLAN: Plan The patient is a 64 y/o F w/ PMHx: Morbidly obese, HTN, HLD, CKD stage III unclear subtype, Hx TIA, Anxiety and Depression/bipolar disorder, PAF, GERD, Tobacco use, Chronic COPD/asthma who presents to the [facility] ED on 01/08/25 with history of altered mental status found at the [facility] where she has been living secondary to homeless status noted to be confused, tachycardic, hypoxic and febrile upon EMS evaluation with possibly generalized abdominal discomfort but uncertain as patient was a poor historian upon initial ED evaluation prompting EMS to bring her to the hospital for evaluation. #1. Acute Sepsis secondary to Acute Encephalopathy secondary to Acute Complicated Urinary Tract Infection (hypoxia, tachycardia, tachypnea, encephalopathy, significant lactic acidosis, renal insufficiency) complicated by acute hypoxia suspected secondary to primary acute infectious presentation with underlying COPD concurrently as noted: Will admit to the ICU, UA upon ED evaluation remarkable, pending UCx, will continue aggressive IV fluids with 30 cc per Cloderm IV fluid bolus ongoing per ED, will maintain on IV Levaquin given allergy history with last noted urine culture result that was positive with Klebsiella sensitive to Levaquin at that time, will consult assistant store manager trainee per protocol, will monitor I/Os, lactic acidosis normalized upon repeat lactic acid checked per facility protocol following ED initiated IV fluids, if clinically deteriorates or worsens low threshold to initiate pressor therapy, transition antibiotics as able pending sensitivities and speciation. Bld cx x 2 obtained in the ED. #2. Acute renal insufficiency/increased creatinine on CKD stage III, unclear subtype: Admission BUN/: 17/1.82, GFR 31, baseline creatinine primarily 1.3-1.4, will continue to hydrate with 30 cc/kg IV fluid bolus initiated per ED and repeat CMP in AM. #3. Chronic COPD/asthma with as noted above acute hypoxia: Will maintain on oxygen with wean as tolerated to room air as noted above, likely secondary to acute septic presentation, will maintain onATC duonebs, PRN albuterol, HOB, IS parameters. #4. PAF: Not on rate or rhythm agent, will continue patient home Eliquis regimen. #5. Diabetes mellitus type II: Noted chart history, not on regimen per current list, hemoglobin A1c requested, maintain on ADA diet, accu checks w/ ISS. #6. Hypertension: Temporarily holding Lasix given low BP in the ED with septic presentation, add back once clinically appropriate. #7. Hyperlipidemia: Will continue patient on statin therapy. #8. Tobacco Abuse: Encouraged cessation, inpatient consultation per RT, NR if desired. #9. Anxiety and depression/bipolar disorder: Will continue patient home citalopram regimen. Temporarily holding high dose Seroquel and lorazepam given encephalopathy in the ED. #10. History TIA: Will continue Eliquis, statin therapy, temporally holding hypertensive regimen as noted. #11. GERD: Will continue patient on PPI. #12. Homelessness: Complicates presentation, patient without long term at discharge aside from possibly [facility] however the depending on what patient needs this may be limited, high risk for nonadherence to treatment with subsequent increased risk for complications of readmission given homelessness status. Case management consulted. #13. Morbid Obesity: Weight loss and lifestyle changes encouraged. #14. DVT prophylaxis: Continue home Eliquis regimen. #15. CODE status: Patient does not have healthcare power of general manager or living will in place and is uncertain of who she would name at this point. Discussed CODE status at length including difference between FULL code, DNR-CCA and DNR-CC status. Following discussions about the differences in these status, requested Full Code status. Advanced Care Planning Face to Face Time: 16 minutes. Charges/Coding Visit Charges Inpatient E&M: 19201 Init Hosp L3 Procedures Hospitalists Procedures: 71002 Advncd Care Plan 30 Min
[2025-01-08] MEDS: levoFLOXacin IV 750 MG/150 ML BAG 100 MG IV (19:33)
[2025-01-08] MEDS: VIAFLEX IV (19:33)
[2025-01-08] MEDS: NORMAL SALINE IV (19:33)
[2025-01-08 20:57] LABS: Reflex Lactate? Y
[2025-01-08] MEDS: Acetaminophen 325 MG Tablet 650 MG PO (21:44)
[2025-01-08] MEDS: APIXABAN 5 MG TABLET PO (21:44)
[2025-01-08] MEDS: Menthol/Lanolin/Calamine/Znox 113 GM Tube 1 APPLIC TOPICAL (21:45)
[2025-01-08] MEDS: QUEtiapine 100 MG Tablet 200 MG PO (21:51)
[2025-01-08] MEDS: Atorvastatin Calcium 10 MG Tablet 5 MG PO (21:51)
[2025-01-08] MEDS: 0.9% Normal Saline (1000mL) 1,000 ML 100 ML IV (21:51)
[2025-01-08 22:05] LABS: Lactic Acid < 1.0 mmol/L (0.0-2.0)
[2025-01-08] MEDS: Norepinephrine 8 MG in 0.9% Normal Saline (250mL Bag) 242 ML 9.4 MG CONT INF (23:10)
[2025-01-09] VITALS (38 sets, daily range): BP systolic 91–145; BP diastolic 49–124; PULSE 65–86; RESP 12–23; TEMP 36.4–37; O2SAT 92–100; BMI 45.8
[2025-01-09 00:06] LABS: Bedside Glucose 108 mg/dL (74-106)
[2025-01-09] MEDS: Lactated Ringers 1,000 ML 500 ML IV (01:15)
--- NOTE | 2025-01-09 01:41 | CON.PCM.CC_ITS ---
HPI Consult Data Date of Consult: 01/09/25 HPI Narrative Reason for Consultation: Sepsis and shock HPI Narrative: PERNELL FISHER, is a 64 F who presents as brought in by responders after having been found confused at homeless long-term. Patient is a poor participant in HPI and is slurring her speech and falling asleep to the point where she is unintelligble for HPI. Collateral info is thus obtained from review of the EMR and speaking with onsite staff. UA showing UTI. She is on 6mcg/min of norepinephrine drip. She recieved 30cc/kg IVF bolus, but has dumped about 600mL urine into Sorto bag. She is on 2Lm NC O2. [facility] Medical History Urinary tract infection History of echocardiogram Wears glasses Anxiety Depression Post-menopausal History of renal disease High cholesterol Back pain TIA (transient ischemic attack) Gastric reflux Smoker Shortness of breath on exertion History of pain when walking History of edema Cardiology follow-up encounter History of heart attack Chest pain History of left heart catheterization (LHC) (~12/30/20) CKD (chronic kidney disease) stage 3, GFR 30-59 ml/min Lung nodule COPD (chronic obstructive pulmonary disease) Paroxysmal atrial fibrillation Elevated liver enzymes Acute respiratory failure with hypoxia Stroke IBS (irritable bowel syndrome) Hyperlipidemia Heart disease Migraines Frequent headaches Gastrointestinal problem Diabetes History of back problems Asthma Arthritis Home Medications ?Medication ?Instructions ?Recorded ?Last Taken ?Type albuterol sulfate 90 mcg/actuation 2 puff inhalation Q 6H PRN 11/07/24 Unknown Rx aerosol inhaler shortness of breath or wheez ing #6.7 grams apixaban 5 mg tablet (Eliquis) 5 mg PO Q12 #60 tabs Unknown Rx citalopram 10 mg tablet 10 mg PO DAILY #30 tabs 10/17 10/09 Unknown Rx quetiapine 100 mg tablet 200 mg (2 x 100 mg) PO BID # 120 11/07/24 Unknown Rx tabs trazodone 100 mg tablet 200 mg (2 x 100 mg) PO QHS # 60 tabs 11/07/24 Unknown Rx lorazepam 0.5 mg tablet 0.5 mg PO Q12H PRN anxiety 0 11/14/24 Unknown History lovastatin 40 mg tablet 20 mg PO QHS 11/14/24 Unknow n History omeprazole 40 mg capsule,delayed 40 mg PO DAILY Unknown History release aspirin 81 mg capsule 81 mg PO DAILY 01/08/25 Unkn own History furosemide 20 mg tablet 20 mg PO BID 01/08/25 Unknow n History ipratropium 0.5 mg-albuterol 3 mg 3 ml inhalation Q20M PRN shortness 01/08/25 Unknown History (2.5 mg base)/3 mL nebulization of breath soln Allergy/AdvReac Type Severity Reaction Status Date / Time Penicillins Allergy Intermediate Hives Verified 01/08/25 16:28 carbamazepine (From Tegretol) AdvReac Intermediate Nausea Verified 01/08/25 16:28 benztropine AdvReac Unknown Verified 01/08/25 16:28 diazepam (From Valium) AdvReac Other Verified 01/08/25 16:28 Sulfa (Sulfonamide AdvReac Nausea Verified 01/08/25 16:28 Antibiotics) thioridazine AdvReac Nausea Verified 01/08/25 16:28 thioridazine HCl (From AdvReac Other Verified 01/08/25 16:28 Mellaril) Family History Grandmother Cancer stomach Father Cancer lung Sister Breast cancer Surgical History Hx of surgical procedure History of carpal tunnel surgery History of elbow surgery H/O shoulder surgery H/O hand surgery H/O dilation and curettage Hx of cholecystectomy History of tonsillectomy Social History household members: other details: Living in apt with friends, now moving out without home at discharge. housing: homeless Smoking Status: Heavy Smoker (>10/day) alcohol intake: never substance use type: does not use caffeine: Yes what type of physical activity do you participate in: walking seatbelt use: always do you feel safe at home: Yes ROS ROS Narrative Could not obtain 12 ore more systems 2/2 encephalopathy Review of Systems ROS Unobtainable: due to mental status; Denies due to endotracheal tube Objective Data Objective Data Vital Signs: Vital Signs Last response 3 Temperature 36.4 C L 01/09/25 00:00 Temperature Source Core 01/09/25 00:00 Pulse Rate 78 01/09/25 01:00 Respiratory Rate 14 01/09/25 01:00 Blood Pressure 108/52 L 01/09/25 01:00 Blood Pressure Mean 70 01/09/25 01:00 Blood Pressure Source Monitor 01/09/25 01:00 Blood Pressure Position Semi-Fowlers 01/08/25 23:00 Blood Pressure Location Right Arm 01/08/25 23:00 Pulse Ox 94 01/09/25 01:00 Oxygen Delivery Method Nasal Cannula 01/09/25 01:00 Oxygen Flow Rate (L/min) 2 01/09/25 01:00 I&O: I&O Last 24 Hours 3 01/08/25 01/08/25 01/09/25 11:59 23:59 11:59 Intake Total 3806.44 / 3809.27 14.14 / 14.14 Balance 3806.44 / 3809.27 14.14 / 14.14 I&O: Total Stay 3 01/08/25 16:27 thru 01/09/25 01:00 Intake Total 3820.58 Balance 3820.58 Current Meds Ordered / Administered: Current meds ordered / Administered 3 Generic Name Dose Route Start Last Admin Trade Name Freq PRN Reason Stop Dose Admin Acetaminophen 650 mg 01/08/25 20:32 01/08/25 21:44 Acetaminophen 325 Mg Tablet PO 650 mg Q4H PRN PRN Administration Fever, pain 1-10/10 Al Hydroxide/Mg Hydroxide 30 ml 01/08/25 20:32 Mag Hydrox/Al Hydrox/Simeth 30 Ml Udc PO Q6H PRN PRN Gastric Burning Albuterol Sulfate 2.5 mg 01/08/25 20:32 Albuterol 2.5 Mg/3 Ml Vial.Neb. INHALATION Q2H PRN PRN Dyspnea, wheezing Albuterol/Ipratropium 3 ml 01/08/25 20:32 Ipratropium/Albuterol Sulfate 3 Ml Ampul.Neb INHALATION Q6HWA.RT MARIA DEL CARMEN Apixaban 5 mg 01/08/25 22:00 01/08/25 21:44 Apixaban 5 Mg Tablet PO 5 mg Q12 MARIA DEL CARMEN Administration Aspirin 81 mg 01/09/25 08:00 Aspirin 81 Mg Tab.Chew PO BREAKFAST MARIA DEL CARMEN Atorvastatin Calcium 5 mg 01/08/25 22:00 01/08/25 21:51 Atorvastatin Calcium 10 Mg Tablet PO 5 mg QHS MARIA DEL CARMEN Administration Calamine/Phenol 1 applic 01/08/25 22:00 01/08/25 21:45 Menthol/Lanolin/Calamine/Znox 113 Gm Tube TOPICAL 1 applic 4X/DAY MARIA DEL CARMEN Administration Protocol Citalopram Hydrobromide 10 mg 01/09/25 10:00 Citalopram 10 Mg Tablet PO DAILY MARIA DEL CARMEN Glucagon 1 mg 01/08/25 23:19 Glucagon 1 Mg/Ml Syringe IM X1 PRN Hypoglycemia Protocol Guaifenesin 10 ml 01/08/25 20:32 Guaifenesin 10 Ml Udc (200mg/10ml) PO Q4H PRN PRN COUGH Sodium Chloride 1,000 mls @ 100 mls/hr 01/08/25 20:32 01/08/25 21:51 IV 01/09/25 11:31 100 mls/hr .Q10H MARIA DEL CARMEN Administration Norepinephrine Bitartrate 8 mg 250 mls @ 9.375 mls/hr 01/08/25 22:55 01/09/25 01:00 / Sodium Chloride CONT INF 6 mcg/min .[id number] MARIA DEL CARMEN 11.3 mls/hr Titration Protocol 5 MCG/MIN Sodium Chloride 250 mls @ 15 mls/hr 01/08/25 23:16 IV .[id number] PRN Saline Flush Sodium Chloride 250 mls @ 15 mls/hr 01/08/25 23:16 IV .[id number] PRN Additional IVPB Infusion Dextrose 250 mls @ 0 mls/hr 01/08/25 23:19 Dextrose 10%-Water IV .Q0M PRN HYPOGLYCEMIA Protocol As Directed Lactated Ringer's 1,000 mls @ 500 mls/hr 01/09/25 00:45 01/09/25 01:15 IV 01/09/25 02:44 500 mls/hr .Q2H MARIA DEL CARMEN Administration Insulin Human Lispro 0 unit 01/09/25 07:00 Insulin Lispro 100 Unit/Ml Insuln.Pen SC ACHS MARIA DEL CARMEN Protocol Levofloxacin 750 mg 01/10/25 22:00 Levofloxacin 750 Mg Tablet PO Q48@2200 MARIA DEL CARMEN Melatonin 3 mg 01/08/25 20:32 Melatonin 3 Mg Tablet PO QHS PRN PRN INSOMNIA Midodrine 10 mg 01/09/25 08:00 Midodrine Hcl 5 Mg Tablet PO 01/12/25 23:59 TIDCM MARIA DEL CARMEN Ondansetron HCl 4 mg 01/08/25 20:32 Ondansetron 4 Mg/2 Ml Vial IV Q8H PRN PRN NAUSEA/VOMITING Pantoprazole Sodium 40 mg 01/09/25 10:00 Pantoprazole Sodium 40 Mg Tablet PO DAILY MARIA DEL CARMEN Prochlorperazine Edisylate 5 mg 01/08/25 20:32 Prochlorperazine 10 Mg/2 Ml Vial IV Q4H PRN PRN Breakthrough Nausea/Vomiting Quetiapine Fumarate 200 mg 01/08/25 22:00 01/08/25 21:51 Quetiapine 100 Mg Tablet PO 200 mg BID [facility] Administration Protocol Senna/Docusate Sodium 2 tablet 01/08/25 20:32 Senna/Docusate Sodium 1 Tablet PO BID PRN PRN Constipation Sodium Chloride 10 - 40 ml 01/08/25 23:16 0.9% Saline Lock 10 Ml Syringe IV UD PRN SALINE FLUSH Physical Exam Const General Appearance: lethargic, ill appearing and frail Orientation / Consciousness: obtunded HEENT normocephalic and head/scalp atraumatic Eyes PERRL and no scleral icterus Neck no JVD Resp no use of accessory muscles Auscultation: clear to auscultation bilaterally Cardio regular rate and regular rhythm GI soft to palpation and non-tender no CVA tenderness Extremity no clubbing, cyanosis or edema Skin no rashes or lesions noted Psych Appearance: unkempt Lab / Micro Data Attestation: I reviewed the patient's lab results. 01/08/25 16:41 01/08/25 16:41 Labs: Laboratory Results - last 24 hr 01/08/25 16:41: WBC 9.8, RBC 4.42, Hgb 13.5, Hct 41.1, MCV 93.0, MCH 30.5, MCHC 32.8, RDW Std Deviation 46.9 H, RDW Coeff of Robert 13.7, Plt Count 245, MPV 10.5, Immature Gran % (Auto) 0.100, Neut % (Auto) 76.0 H, Lymph % (Auto) 15.8 L, [place] % (Auto) 6.6, Eos % (Auto) 1.3, Baso % (Auto) 0.2, Absolute Neuts (auto) 7.4, Absolute Lymphs (auto) 1.55, Nucleated RBC % 0, PT 14.3, INR 1.1, APTT 27.1, Sodium 140, Potassium 3.4, Chloride 105, Carbon Dioxide 18.9 L, Anion Gap 16 H, BUN 17, Creatinine 1.82 H, Estim Creat Clear Calc 38.69 L, Est GFR (MDRD) Non-Af 31 L, BUN/Creatinine Ratio 9.2 L, Glucose 138 H, Lactic Acid 3.9 H*, Calcium 8.7, Total Bilirubin 0.39, AST 18, ALT 8, Alkaline Phosphatase 77, Total Protein 6.4, Albumin 3.7, Globulin 2.7, Albumin/Globulin Ratio 1.4, Lipase 22, Urine Color Yellow, Urine Clarity Sl. Cloudy, Urine pH 6.0, Ur Specific [place] 1.020, Urine Protein 30 H, Urine Glucose (UA) Normal, Urine Ketones Negative, Urine Occult Blood 25 H, Urine Nitrite Negative, Urine Bilirubin 1 H, Urine Urobilinogen 1 H, Ur Leukocyte Esterase 100 H, Urine RBC 0-5 SEEN, Urine WBC 25- 50 SEEN, Ur Squamous Epith Cells 5-10 SEEN, Ur Transition Epith Cell 0-5 SEEN, Urine Bacteria 2+, Urine Mucus 0 SEEN, Urine Opiates Screen NEGATIVE, U Buprenorphine Qual NEGATIVE, Ur Oxycodone Screen NEGATIVE, Urine Methadone Screen NEGATIVE, Urine Fentanyl Screen NEGATIVE, Ur Barbiturates Screen NEGATIVE, Ur Phencyclidine Scrn NEGATIVE, Ur Amphetamines Screen NEGATIVE, U Benzodiazepines Scrn PRESUMPTIVE POSITIVE, Urine Cocaine Screen NEGATIVE, U Cannabinoids Screen NEGATIVE, Ethyl Alcohol < 10.1 01/08/25 21:20: Lactic Acid < 1.0 01/08/25 23:40: POC Glucose 108 H ABG Data ABG results: ABG 01/08/25 16:58 Specimen Type ART Sample Site R BRACHIAL pH 7.46 H Bicarbonate Actual 21.1 L Total CO2 22 Base Excess -3 L O2 Saturation 91 L ABG pCO2 29.6 L ABG pO2 55 L Liter Flow 3.0 Imaging Radiology Impression Brain CT 01/08/25 16:50 IMPRESSION: Slightly limited exam, without evidence of an acute intracranial abnormality. Senescent changes. Reading Location: [facility] Chest X-Ray 01/08/25 17:00 IMPRESSION: Slightly limited exam, without definite evidence of an acute cardiopulmonary abnormality. Reading Location: [facility] CXR reviewed Assessment and Plan . Assessment and plan: ICU Problem List: septic shock acute metabolic encephalopathy morbid obesity obstructive uropathy Plan: maintain Sorto titraet norepinephrine to MAP 65 torr repeat LA better, but due to diuresis, will add aother 1L IVF bolus over 2 hours meropenem or cefepime for UTI empirically given h/o UTI PO midodrine 10mg q8h can add on hydrocortsone 50mg IV q8h if adrenal insufficiency suspected, but would hold off untl 2nd pressor needed Jovani Wynn MD PCCM [facility] 65 minTime: The entirety of this encounter was done via Telemedicine
[2025-01-09] MEDS: TITRATION PARAMETER CHANGE 1 EACH IV (03:23)
[2025-01-09 04:37] LABS: Absolute Lymphocyte Count 2.69 X10^3/uL (0.83-4.51); Absolute Neutrophil Count 6.7 X10^3/uL (2.0-7.7); Basophil# 0.02 X10^3/uL; Basophil% 0.2 % (0-1); Eosinophil# 0.13 X10^3/uL; Eosinophils% 1.2 % (0-5); Hematocrit 39.9 % (37-47); Hemoglobin 12.9 g/dL (12.0-15.0); Lymphocyte # 2.69 X10^3/ul (0.83-4.51); Lymphocyte % 25.4 % (19-41); Mean Corp Hgb Conc 32.3 g/dL (32-36); Mean Corpuscular Hgb 30.6 pg (27.0-32.0); Mean Corpuscular Volume 94.8 fL (81-99); Mean Platelet Vol. 10.3 fl (6.2-12.0); Monocyte# 1.01 X10^3/uL; Monocyte% 9.5 % (0-10); NRBC Flagged by Analyzer 0 % (0-5); Neutrophil # 6.73 X10^3/uL (2.7-7.7); Neutrophil % 63.5 % (47-70); Platelet Count 223 K/mm3 (150-450); RBC Distribution Width CV 13.9 % (11.6-14.6); RBC Distribution Width SD 48.2 fl (35.1-43.9); Red Blood Count 4.21 M/mm3 (4.2-5.4); White Blood Count 10.6 K/mm3 (4.4-11.0)
[2025-01-09] MEDS: 0.9% Normal Saline (1000mL) 1,000 ML 100 ML IV (06:50)
[2025-01-09] MEDS: Ipratropium/Albuterol Sulfate 3 ML AMPUL.NEB INHALATION ×3 (06:54→20:00)
[2025-01-09 07:11] LABS: ALB/GLOB Ratio 1.3 RATIO (0.9-2.4); AST(SGOT) 32 U/L (<=31); Alanine Aminotransfer ALT/SGPT 9 U/L (<=34); Albumin, Serum 3.2 g/dL (3.4-4.8); Alkaline Phosphatase 69 U/L (35-104); Anion Gap 13 (5-15); BUN 13 mg/dL (4-19); BUN/Creat Ratio 9.3 RATIO (10-20); Calcium,Total 8.2 mg/dL (7.6-11.0); Carbon Dioxide 19.4 mmol/L (21.0-32.0); Chloride 114 mmol/L (98-108); Creatinine, Serum 1.36 mg/dL (0.70-1.20); EST Glomerular Filtration Rate 44 (>60); Estimated Creatinine Clearance 51.12 ml/min (50-250); Globulin 2.5 g/dL (2.2-4.2); Glucose 101 mg/dL (70-99); Potassium 3.6 mmol/L (3.3-5.1); Protein, Total 5.8 g/dL (5.9-8.4); Sodium Level 146 mmol/L (133-145); Total Bilirubin 0.41 mg/dL (0.00-1.30)
--- NOTE | 2025-01-09 08:18 | US_ITS ---
PROCEDURE: KIDNEY AND BLADDER 01/09/2025 REASON FOR EXAM: UROSEPSIS, EVAL FOR PYELO TECHNIQUE: KIDNEY AND BLADDER COMPARISON: Prior CT scan dated November 14, 2024. FINDINGS: Kidneys: 5 mm x 5 mm x 4 mm nonobstructive right intrarenal calculus. Nonobstructive 6 mm x 6 mm x 4 mm left intrarenal calculus. [place]: No evidence of hydronephrosis Cysts or Masses: No cyst or mass is seen. RIGHT Kidney Size: 8.4 cm x 4.6 cm x 4 cm Volume: 80.88 mL Cortical Thickness (if discernible): 9 mm (>6mm is normal) LEFT Kidney Size: 9.9 cm x 4.8 cm x 4.6 cm Volume: 113.99 mL Cortical Thickness (if discernible): 10 mm (>6mm is normal) US/Kidney and Bladder IMPRESSION: Small nonobstructive bilateral intrarenal calculi. Reading Location: [id number]
[2025-01-09] MEDS: Aspirin 81 MG TAB.CHEW PO (08:30)
[2025-01-09] MEDS: Pantoprazole Sodium 40 MG Tablet PO (08:30)
[2025-01-09] MEDS: QUEtiapine 100 MG Tablet 200 MG PO ×2 (08:30→21:00)
[2025-01-09] MEDS: Citalopram 10 MG Tablet PO (08:30)
[2025-01-09] MEDS: Midodrine HCl 5 MG Tablet 10 MG PO ×3 (08:30→17:51)
[2025-01-09] MEDS: APIXABAN 5 MG TABLET PO ×2 (08:30→21:00)
[2025-01-09 08:56] LABS: Bedside Glucose 110 mg/dL (74-106)
--- NOTE | 2025-01-09 12:09 | PCM.PN.HOSP ---
Reason for Visit Reason for Visit: Diagnoses Sepsis, unspecified organism (01/08/25) Urinary tract infection, site not specified (01/08/25) Subjective Subjective Saw patient at bedside this morning. Patient was fatigued appearing but was alert and oriented x 3 and answering questions with short appropriate responses. She denied any acute pain or discomfort currently. Was able to tell me that she was feeling well a few days ago but progressively felt more weak and tired over the past day or so. She denies any UTI symptoms at this point. No other acute concerns currently. Objective Data Objective Data Vital Signs: Vital Signs Temp Pulse Resp BP Pulse Ox O2 Del Method O2 Flow Rate 98.5 F 83 13 99/55 L 94 Nasal Cannula 2 01/09/25 11:00 01/09/25 11:00 01/09/25 11:00 01/09/25 11:00 01/09/25 11:00 01/09/25 11:00 01/09/25 11:00 Oxygen Flow Rate (L/min) 2 Oxygen Delivery Method Nasal Cannula Weight: 113.6 kg Body Mass Index (BMI) 45.8 Intake & Output: Intake and Output for Last 24 Hours 01/07/25 01/08/25 01/09/25 23:59 23:59 23:59 Intake Total 3806.44 / 3809.27 1959.18 / 1959.18 Output Total 1800 / 1800 Balance 3806.44 / 3009.27 159.18 / 159.18 Lab / Micro Data 01/09/25 04:25 01/09/25 Unknown Labs: Laboratory Results - last 24 hr 01/08/25 16:41: WBC 9.8, RBC 4.42, Hgb 13.5, Hct 41.1, MCV 93.0, MCH 30.5, MCHC 32.8, RDW Std Deviation 46.9 H, RDW Coeff of Robert 13.7, Plt Count 245, MPV 10.5, Immature Gran % (Auto) 0.100, Neut % (Auto) 76.0 H, Lymph % (Auto) 15.8 L, [place] % (Auto) 6.6, Eos % (Auto) 1.3, Baso % (Auto) 0.2, Absolute Neuts (auto) 7.4, Absolute Lymphs (auto) 1.55, Nucleated RBC % 0, PT 14.3, INR 1.1, APTT 27.1, Sodium 140, Potassium 3.4, Chloride 105, Carbon Dioxide 18.9 L, Anion Gap 16 H, BUN 17, Creatinine 1.82 H, Estim Creat Clear Calc 38.69 L, Est GFR (MDRD) Non-Af 31 L, BUN/Creatinine Ratio 9.2 L, Glucose 138 H, Lactic Acid 3.9 H*, Calcium 8.7, Total Bilirubin 0.39, AST 18, ALT 8, Alkaline Phosphatase 77, Total Protein 6.4, Albumin 3.7, Globulin 2.7, Albumin/Globulin Ratio 1.4, Lipase 22, Urine Color Yellow, Urine Clarity Sl. Cloudy, Urine pH 6.0, Ur Specific [place] 1.020, Urine Protein 30 H, Urine Glucose (UA) Normal, Urine Ketones Negative, Urine Occult Blood 25 H, Urine Nitrite Negative, Urine Bilirubin 1 H, Urine Urobilinogen 1 H, Ur Leukocyte Esterase 100 H, Urine RBC 0-5 SEEN, Urine WBC 25-50 SEEN, Ur Squamous Epith Cells 5-10 SEEN, Ur Transition Epith Cell 0-5 SEEN, Urine Bacteria 2+, Urine Mucus 0 SEEN, Urine Opiates Screen NEGATIVE, U Buprenorphine Qual NEGATIVE, Ur Oxycodone Screen NEGATIVE, Urine Methadone Screen NEGATIVE, Urine Fentanyl Screen NEGATIVE, Ur Barbiturates Screen NEGATIVE, Ur Phencyclidine Scrn NEGATIVE, Ur Amphetamines Screen NEGATIVE, U Benzodiazepines Scrn PRESUMPTIVE POSITIVE, Urine Cocaine Screen NEGATIVE, U Cannabinoids Screen NEGATIVE, Ethyl Alcohol < 10.1 01/08/25 21:20: Lactic Acid < 1.0 01/08/25 23:40: POC Glucose 108 H 01/09/25 04:25: WBC 10.6, RBC 4.21, Hgb 12.9, Hct 39.9, MCV 94.8, MCH 30.6, MCHC 32.3, RDW Std Deviation 48.2 H, RDW Coeff of Robert 13.9, Plt Count 223, MPV 10.3, Immature Gran % (Auto) 0.200, Neut % (Auto) 63.5, Lymph % (Auto) 25.4, [place] % (Auto) 9.5, Eos % (Auto) 1.2, Baso % (Auto) 0.2, Absolute Neuts (auto) 6.7, Absolute Lymphs (auto) 2.69, Nucleated RBC % 0, Hemoglobin A1c 6.0 H 01/09/25 08:25: POC Glucose 110 H 01/09/25 : Sodium 146 H, Potassium 3.6, Chloride 114 H, Carbon Dioxide 19.4 L, Anion Gap 13, BUN 13, Creatinine 1.36 H, Estim Creat Clear Calc 51.12, Est GFR (MDRD) Non-Af 44 L, BUN/Creatinine Ratio 9.3 L, Glucose 101 H, Calcium 8.2, Total Bilirubin 0.41, AST 32, ALT 9, Alkaline Phosphatase 69, Total Protein 5.8 L, Albumin 3.2 L, Globulin 2.5, Albumin/Globulin Ratio 1.3 ABG Data ABG results: ABG 01/08/25 16:58 Specimen Type ART Sample Site R BRACHIAL pH 7.46 H Bicarbonate Actual 21.1 L Total CO2 22 Base Excess -3 L O2 Saturation 91 L ABG pCO2 29.6 L ABG pO2 55 L Liter Flow 3.0 Radiography Diagnostic Testing: Radiology Impression Brain CT 01/08/25 16:50 IMPRESSION: Slightly limited exam, without evidence of an acute intracranial abnormality. Senescent changes. Reading Location: [facility] Chest X-Ray 01/08/25 17:00 IMPRESSION: Slightly limited exam, without definite evidence of an acute cardiopulmonary abnormality. Reading Location: [id number] Physical Exam Const alert, oriented x3 and no apparent distress Constitutional Narrative: Upper middle-aged female, class III obesity, fatigued appearing but alert and oriented x 3, laying back comfortably in bed, answering questions appropriately. General Appearance: cooperative and comfortable HEENT normocephalic, head/scalp atraumatic, hearing grossly normal bilaterally, nasal mucous membranes and turbinates normal and moist oral mucous membranes Eyes PERRL, EOMs intact bilaterally and conjunctivae normal Neck full ROM Chest inspection of chest normal Resp normal respiratory effort, normal air movement, no use of accessory muscles and clear to auscultation bilaterally Cardio regular rate, regular rhythm, no murmurs and peripheral pulses 2+ throughout GI normal to inspection, nondistended, normoactive bowel sounds, soft to palpation, non-tender and non-distended Back/Spine normal ROM Extremity normal to inspection, full ROM and no pedal edema Skin no rashes or lesions noted Psych mental status grossly normal Assessment & Plan Assessment/Plan (1) Sepsis: PLAN: Plan Patient is a 64-year-old female who presented to [facility] ED on 01/08/2025 with altered mentation. 1. Sepsis suspected secondary to UTI ? Clay Carman following. Met sepsis criteria on admit with tachycardia, tachypnea, hypotension, lactic acidosis, encephalopathy and renal insufficiency with suspected urinary source. Hypotension was fluid responsive, did not require pressors on admit. UA with 100 leukocyte esterase, negative nitrates, 25-50 WBCs, 2+ bacteria. Renal ultrasound with small nonobstructing stones, otherwise normal. Chest x-ray unremarkable. Urine culture and blood cultures pending. Notably urine culture in October grew Klebsiella sensitive to everything but ampicillin. Continue treatment with IV Levaquin. Continue to monitor closely. 2. Acute metabolic encephalopathy, improving ? Suspected secondary to sepsis as above. CT brain negative on admit. Much improved on hospital day 2, fatigued but alert and oriented x 3. Continue treatment as above. Avoid sedating medications as able. 3. Mild creatinine elevation in setting of CKD stage IIIb, resolved ? Creatinine 1.8 on admit, baseline around 1.3. Resolved back to baseline on hospital day 2 after IV fluid resuscitation. 4. Acute on chronic debility, poor social situation with homelessness ? PT/OT/case management consulted. Patient has reportedly been staying with a friend in [place] recently and has been applying for housing. Appreciate therapy and case management assistance. 5. COPD/asthma with acute hypoxia ? Patient requiring 2 L nasal cannula on admit to maintain appropriate oxygen saturations. Chest x-ray on admit unremarkable. Suspect patient may be close to her baseline. Continue home inhalers and wean supplemental oxygen as able. Chronic medical conditions: ? Class III obesity: BMI 45 on admit. Complicates hospital course, care and prognosis. ? Paroxysmal A-fib, hypertension, hyperlipidemia: Continue home Eliquis, aspirin and statin. Holding home Lasix for now given sepsis as above. ? Type 2 diabetes mellitus: A1c 6.0% on admit. Not on home indication. Will treat with sliding scale insulin with meals while inpatient, adjust as needed. ? Tobacco abuse: NRT available per patient request. Discussed cessation on discharge. ? Anxiety/depression/bipolar disorder: Continue home citalopram, Seroquel, Ativan twice daily as needed and trazodone at night as needed. ? GERD: Continue home PPI. DVT prophylaxis: Not indicated, on Eliquis CODE STATUS: Full code, verified Expected disposition: TBD Total clinical time spent by myself addressing the patient's medical issues, reviewing all the data, and collaborating with patient's care team: 35 minutes. Charges/Coding Visit Charges Inpatient E&M: 81864 Subs Hosp L2
[2025-01-09] MEDS: Menthol/Lanolin/Calamine/Znox 113 GM Tube 1 APPLIC TOPICAL ×3 (12:17→21:00)
[2025-01-09] MEDS: levoFLOXacin IV 750 MG/150 ML BAG 100 MG IV (13:27)
[2025-01-09] MEDS: Acetaminophen 325 MG Tablet 650 MG PO (13:34)
--- NOTE | 2025-01-09 14:55 | CHAPLAIN ---
Type of Pastoral Visit _x__ Initial Visit ___ Follow-up Visit ___ On-call Visit ___ General Patient Visit ___ Spiritual Assessment ___ Family Conference ___ Bereavement ___ Rapid Response ___ Code Blue ___ Other (describe below) Pastoral Care Referral From _x__ Patient ___ Family ___ Nurse ___ Physician ___ Ground Support Agent ___ Dinkey Skinner ___ Other (describe below) Sacrament/Intervention _x__ Active listening ___ Anointing ___ Judaism ___ Bereavement ___ Communion ___ Kendy exploration ___ ___ Life review _x__ Prayer ___ Reconciliation ___ Sacrament of Sick _x__ Supportive presence ___ Wedding ___ Other (describe below) Pastoral Comments
--- NOTE | 2025-01-09 15:33 | CASEMGMT ---
Social Work SW met w/pt in room in regard to prior level of function and anticipated discharge plan. PCP: Dr. Bradford Specialists: Dr. Christopher, pulmonology. Dr. Contreras, psychiatry. Pt states was to see a bundle tier but did not get to appt due to transportation. Pharmacy: [facility](gets medications delivered) Insurance/Prescription benefit: [employer] LNOK: Pt is , has three children but is not on speaking terms w/them. Pt has a brother who was contacted in the recent past, his had informed SW they do not want anything to do w/pt. LW/POA: Pt has not completed, not interested in completing at this time. Living arrangements: Pt is staying w/her friend Marimar on [facility] at present, and plans to return. At this time, Marimar does plan on letting her return to her home. Pt is caring for herself. Pt states initially Marimar had said she would leave in a couple of weeks but recently said she can stay. Pt has applied for Section 8 Housing and states is working w/the [place] and [employer] to secure housing. Transportation: This is a difficulty for pt, she states has not gotten to the bundle tier or to the psychiatrist due to not having transportation. Pt is open to SW helping pt get a psychiatry appt set up. Resources given for transportation. DME: Pt states the hospital lost her cane. She has a walker but wants a rollator. She has a shower chair. Pt lost her nebulizer. SNF: Pt has been to [facility] in the past, she has not had home health. Plan: Pt would like to return to [facility] at discharge. SW to follow up to get pt an appt w/Dr. Contreras and set up transportation. SW also to follow up w/pt regarding rollator and nebulizer--though pt did get a walker on last admission so will educate pt that she cannot get a rollator now under insurance. As per pt, [facility] and [facility] did not follow up w/her, SW will reach back out to both agencies. SW to make [facility] referral if needed. REJI Kate
[2025-01-09 16:40] LABS: Bedside Glucose 115 mg/dL (74-106)
[2025-01-09 16:40] LABS: Bedside Glucose 96 mg/dL (74-106)
[2025-01-09] MEDS: Atorvastatin Calcium 10 MG Tablet 5 MG PO (21:01)
[2025-01-09 21:22] LABS: Bedside Glucose 96 mg/dL (74-106)
[2025-01-10] VITALS (8 sets, daily range): BP systolic 98–123; BP diastolic 54–82; PULSE 64–81; RESP 16–18; TEMP 36.4–36.6; O2SAT 92–95; BMI 45.8
[2025-01-10 05:41] LABS: Hematocrit 37.8 % (37-47); Hemoglobin 12.3 g/dL (12.0-15.0); Mean Corp Hgb Conc 32.5 g/dL (32-36); Mean Corpuscular Hgb 30.9 pg (27.0-32.0); Mean Platelet Vol. 10.4 fl (6.2-12.0); Platelet Count 216 K/mm3 (150-450); RBC Distribution Width CV 13.7 % (11.6-14.6); RBC Distribution Width SD 48.2 fl (35.1-43.9); Red Blood Count 3.98 M/mm3 (4.2-5.4); White Blood Count 9.3 K/mm3 (4.4-11.0)
[2025-01-10 06:36] LABS: Anion Gap 12 (5-15); BUN 12 mg/dL (4-19); BUN/Creat Ratio 9.7 RATIO (10-20); Calcium,Total 8.9 mg/dL (7.6-11.0); Carbon Dioxide 19.9 mmol/L (21.0-32.0); Chloride 112 mmol/L (98-108); Creatinine, Serum 1.25 mg/dL (0.70-1.20); EST Glomerular Filtration Rate 49 (>60); Estimated Creatinine Clearance 55.62 ml/min (50-250); Glucose 92 mg/dL (70-99); Potassium 3.5 mmol/L (3.3-5.1); Sodium Level 144 mmol/L (133-145)
[2025-01-10 07:07] LABS: Bedside Glucose 90 mg/dL (74-106)
[2025-01-10] MEDS: Ipratropium/Albuterol Sulfate 3 ML AMPUL.NEB INHALATION ×3 (07:13→19:54)
--- NOTE | 2025-01-10 07:31 | PCM.PN.HOSP ---
Reason for Visit Reason for Visit: Diagnoses Sepsis, unspecified organism (01/08/25) Urinary tract infection, site not specified (01/08/25) Objective Data Objective Data Vital Signs: Vital Signs Temp Pulse Resp BP Pulse Ox O2 Del Method O2 Flow Rate 97.6 F L 79 17 111/79 95 Room Air 2 01/10/25 06:00 01/10/25 07:14 01/10/25 07:14 01/10/25 06:00 01/10/25 07:14 01/10/25 07:14 01/09/25 17:00 Oxygen Flow Rate (L/min) 2 Oxygen Delivery Method Room Air Weight: 249 lb Body Mass Index (BMI) 45.8 Intake & Output: Intake and Output for Last 24 Hours 01/08/25 01/09/25 01/10/25 23:59 23:59 23:59 Intake Total 3806.44 / 3809.27 3109.18 / 3109.18 0 / 0 Output Total 2625 / 2625 Balance 3806.44 / 3009.27 484.18 / 484.18 0 / 0 Lab / Micro Data 01/10/25 05:30 01/10/25 05:30 Labs: Laboratory Results - last 24 hr 01/09/25 08:25: POC Glucose 110 H 01/09/25 12:13: POC Glucose 115 H 01/09/25 16:22: POC Glucose 96 01/09/25 20:59: POC Glucose 96 01/10/25 05:30: WBC 9.3, RBC 3.98 L, Hgb 12.3, Hct 37.8, MCV 95.0, MCH 30.9, MCHC 32.5, RDW Std Deviation 48.2 H, RDW Coeff of Robert 13.7, Plt Count 216, MPV 10.4, Sodium 144, Potassium 3.5, Chloride 112 H, Carbon Dioxide 19.9 L, Anion Gap 12, BUN 12, Creatinine 1.25 H, Estim Creat Clear Calc 55.62, Est GFR (MDRD) Non-Af 49 L, BUN/Creatinine Ratio 9.7 L, Glucose 92, Calcium 8.9 01/10/25 06:49: POC Glucose 90 Radiography Diagnostic Testing: Radiology Impression Renal Ultrasound 01/09/25 08:18 IMPRESSION: Small nonobstructive bilateral intrarenal calculi. Reading Location: [id number] Physical Exam Narrative Seen and examined. Patient was admitted with confusion and suspicion for sepsis due to UTI. History of recurrent UTI. This time she denies new burning micturition or acute LUTS. States she has mild abrasion of the bellybutton due to diaper Physical exam General: Alert, Oriented x3, Cooperative. BMI 45.5 kg/m? HEENT: Atraumatic, PERRLA, EOMI, Normocephalic. Oral: No Gingival or Mucosal Lesions/ Ulcerations Neck: Supple, No JVD, Negative Carotid Bruits Chest wall/Lungs: Air entry diminished in bilateral lung bases. No crepitation/rhonchi Cardiovascular: Regular rate and rhythm, Normal S1,S2, No M/G/R Abdomen: Bowel Sounds Present, Soft, Non Tender, Non-Distended : Urine output 2625 mL no renal angle tenderness. No suprapubic tenderness. Extremities: No edema, Capillary Refill Less than 3 Seconds Skin: Small superficial left leg wound. Left leg more swollen than right, chronic as per Musculoskeletal: No Tenderness to Palpation of Joints or Extremities. ROM mild restriction at his Neurological: Cranial nerves II-XII grossly intact, DTR 2+/4. No acute focal neurological deficit. Psych/Mental Status: Flat affect Assessment & Plan Assessment/Plan (1) Sepsis: PLAN: Plan Patient is a 64-year-old female who presented to [facility] ED on 01/08/2025 with altered mentation. 1. Sepsis suspected secondary to UTI ? Ornithology Teacher following. Met sepsis criteria on admit with tachycardia, tachypnea, hypotension, lactic acidosis, encephalopathy and renal insufficiency with suspected urinary source. Hypotension was fluid responsive, did not require pressors on admit. UA with 100 leukocyte esterase, negative nitrates, 25-50 WBCs, 2+ bacteria. Renal ultrasound with small nonobstructing stones, otherwise normal. Chest x-ray unremarkable. Urine culture and blood cultures pending. Notably urine culture in October grew Klebsiella sensitive to everything but ampicillin. Continue treatment with IV Levaquin. Continue to monitor closely. 01/10: Blood and urine cultures are pending. Previous urine culture on 11/12 was negative. Laboratory Results 01/09/25 08:25: POC Glucose 110 H 01/09/25 12:13: POC Glucose 115 H 01/09/25 16:22: POC Glucose 96 01/09/25 20:59: POC Glucose 96 01/10/25 05:30: WBC 9.3, RBC 3.98 L, Hgb 12.3, Hct 37.8, MCV 95.0, MCH 30.9, MCHC 32.5, RDW Std Deviation 48.2 H, RDW Coeff of Robert 13.7, Plt Count 216, MPV 10.4, Sodium 144, Potassium 3.5, Chloride 112 H, Carbon Dioxide 19.9 L, Anion Gap 12, BUN 12, Creatinine 1.25 H, Estim Creat Clear Calc 55.62, Est GFR (MDRD) Non-Af 49 L, BUN/Creatinine Ratio 9.7 L, Glucose 92, Calcium 8.9 01/10/25 06:49: POC Glucose 90 2. Acute metabolic encephalopathy, improving ? Suspected secondary to sepsis as above. CT brain negative on admit. Much improved on hospital day 2, fatigued but alert and oriented x 3. Continue treatment as above. Avoid sedating medications as able. 01/10: Metabolic encephalopathy resolved. 3. STEVEN on CKD stage IIIb, resolved ? Creatinine 1.8 on admit, baseline around 1.3. Resolved back to baseline on hospital day 2 after IV fluid resuscitation. 01/10: BUN/creatinine 12/1.25. AG 12. Bicarb 20. Creatinine back on the baseline. STEVEN resolved 4. Acute on chronic debility, poor social situation with homelessness ? PT/OT/case management consulted. Patient has reportedly been staying with a friend in [place] recently and has been applying for housing. Appreciate therapy and case management assistance. 5. COPD/asthma with acute hypoxia ? Patient requiring 2 L nasal cannula on admit to maintain appropriate oxygen saturations. Chest x-ray on admit unremarkable. Suspect patient may be close to her baseline. Continue home inhalers and wean supplemental oxygen as able. Chronic medical conditions: ? Class III obesity: BMI 45 on admit. Complicates hospital course, care and prognosis. ? Paroxysmal A-fib, hypertension, hyperlipidemia: Continue home Eliquis, aspirin and statin. Holding home Lasix for now given sepsis as above. ? Type 2 diabetes mellitus: A1c 6.0% on admit. Not on home indication. Will treat with sliding scale insulin with meals while inpatient, adjust as needed. ? Tobacco abuse: NRT available per patient request. Discussed cessation on discharge. ? Anxiety/depression/bipolar disorder: Continue home citalopram, Seroquel, Ativan twice daily as needed and trazodone at night as needed. ? GERD: Continue home PPI. DVT prophylaxis: Not indicated, on Eliquis CODE STATUS: Full code, verified Charges/Coding Visit Charges Inpatient E&M: 88102 Subs Hosp L2
--- NOTE | 2025-01-10 08:09 | PN.CC_ITS ---
Assessment & Plan Assessment/Plan (1) Sepsis: PLAN: Plan RECOMMENDATIONS: 1. Continue antimicrobials, pending finalized culture results. 2. Continue scheduled bronchodilators. 3. Supplemental oxygen, if needed, to maintain saturations at or above 90%. 4. Continue Eliquis per home regimen. 5. Encourage incentive spirometer use and mobilize patient as tolerated. 6. Will sign off at this time from a critical care perspective. Please call with any additional questions. IMPRESSIONS: 1. Sepsis Clinical concern for underlying urinary tract source of infection. Although the patient was initially hypotensive, she did respond to IV fluid resuscitation without the need for vasopressor support. Recommend continuing antimicrobials, pending finalized culture results. The patient is otherwise clinically stable. 2. Metabolic encephalopathy Resolved. Likely related to presenting sepsis. The patient is mentating appropriately. No further workup is indicated. 3. History of COPD/chronic tobacco dependency/history of homelessness/paroxysmal atrial fibrillation/diabetes mellitus Complicates care, management, recovery and prognosis. Continue aerosol treatments as ordered. Encourage incentive spirometer use and mobilize patient as tolerated. This note was generated with [employer] dictation software. It may contain incorrect words, spelling, and punctuation that were not noted in checking the note before signing. Subjective Subjective The patient was seen and examined at the bedside this morning. Events from the last 24 hours have been reviewed. The patient is currently afebrile, hemodynamically stable and maintaining appropriate oxygen saturations on room air. White blood cell count is normal. Hemoglobin and platelet count are stable. Creatinine has improved to 1.25. Objective Data Objective Data The patient's most recent lab work, culture data and imaging studies have all been personally reviewed. Blood and urine cultures are pending. Vital Signs: Vital Signs Temp Pulse Resp BP Pulse Ox O2 Del Method O2 Flow Rate 97.6 F L 79 17 111/79 95 Room Air 2 01/10/25 06:00 01/10/25 07:14 01/10/25 07:14 01/10/25 06:00 01/10/25 07:14 01/10/25 07:14 01/09/25 17:00 Oxygen Flow Rate (L/min) 2 Oxygen Delivery Method Room Air Weight: 249 lb Body Mass Index (BMI) 45.8 Intake & Output: Intake and Output for Last 24 Hours 01/08/25 01/09/25 01/10/25 23:59 23:59 23:59 Intake Total 3806.44 / 3809.27 3109.18 / 3109.18 0 / 0 Output Total 2625 / 2625 Balance 3806.44 / 3009.27 484.18 / 484.18 0 / 0 Lab / Micro Data Attestation: I reviewed the patient's lab results. 01/10/25 05:30 01/10/25 05:30 Labs: Laboratory Results - last 24 hr 01/09/25 08:25: POC Glucose 110 H 01/09/25 12:13: POC Glucose 115 H 01/09/25 16:22: POC Glucose 96 01/09/25 20:59: POC Glucose 96 01/10/25 05:30: WBC 9.3, RBC 3.98 L, Hgb 12.3, Hct 37.8, MCV 95.0, MCH 30.9, MCHC 32.5, RDW Std Deviation 48.2 H, RDW Coeff of Robert 13.7, Plt Count 216, MPV 10.4, Sodium 144, Potassium 3.5, Chloride 112 H, Carbon Dioxide 19.9 L, Anion Gap 12, BUN 12, Creatinine 1.25 H, Estim Creat Clear Calc 55.62, Est GFR (MDRD) Non-Af 49 L, BUN/Creatinine Ratio 9.7 L, Glucose 92, Calcium 8.9 01/10/25 06:49: POC Glucose 90 Radiography Diagnostic Testing: Radiology Impression Renal Ultrasound 01/09/25 08:18 IMPRESSION: Small nonobstructive bilateral intrarenal calculi. Reading Location: [facility] Physical Exam Const alert, oriented x3 and no apparent distress Constitutional Narrative: Sitting in bedside recliner receiving aerosol treatment. General Appearance: cooperative HEENT normocephalic, head/scalp atraumatic and moist oral mucous membranes Eyes PERRL, EOMs intact bilaterally and conjunctivae normal Neck supple General: trachea midline Chest inspection of chest normal Resp normal respiratory effort Auscultation: diminished lung sounds; Negative for rales, rhonchi or wheezes Cardio regular rate and regular rhythm GI normal to inspection, nondistended, normoactive bowel sounds Extremity no clubbing, cyanosis or edema Skin no rashes or lesions noted Neuro CN's II-XII intact bilaterally, moves all extremities and no focal motor deficits Psych cooperative and affect normal Charges/Coding Visit Charges Inpatient E&M: 30038 Subs Hosp L2
--- NOTE | 2025-01-10 08:29 | VDLE_ITS ---
Reason For Study Reason For Study: SWELLING RIGHT LEFT GSV is normal. GSV is normal. CFV is compressible, spontaneous, phasic, competent CFV is compressible, spontaneous, phasic, competent, and demonstrates normal augmentation. and demonstrates normal augmentation. FV is compressible, spontaneous, phasic, competent FV is compressible, spontaneous, phasic, competent and demonstrates normal augmentation. and demonstrates normal augmentation. POP V is compressible, spontaneous, phasic, competent POP V is compressible, spontaneous, phasic, competent and demonstrates normal augmentation. and demonstrates normal augmentation. T/P Trunk is compressible. T/P Trunk is compressible. PTV is compressible. PTV is compressible. RT PerV is compressible. LT PerV is compressible. Procedure This is a venous duplex using B-mode, color flow and spectral Doppler. Exam performed portable in patient room. A preliminary report was called and/or faxed to ICU @ 10:20 AM. VL/Venous Duplex US - Bruce Extrem Interpretation Summary Deep veins of the bilateral lower extremities are patent and compressible segme ntally. There is no evidence of bilateral lower extremity deep vein thrombosis. The bilateral great saphenous veins appea r patent and compressible segmentally. Ordering Physician: Peter Herbert Referring Physician: Homer Bradford Performed By: Sintia Tavarez, TESSA, RVT
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
[2025-01-10] MEDS: Aspirin 81 MG TAB.CHEW PO (09:30)
[2025-01-10] MEDS: Midodrine HCl 5 MG Tablet 10 MG PO ×3 (09:30→16:33)
[2025-01-10] MEDS: Citalopram 10 MG Tablet PO (09:30)
[2025-01-10] MEDS: QUEtiapine 100 MG Tablet 200 MG PO ×2 (09:31→20:52)
[2025-01-10] MEDS: APIXABAN 5 MG TABLET PO ×2 (09:31→20:53)
[2025-01-10] MEDS: Pantoprazole Sodium 40 MG Tablet PO (09:31)
[2025-01-10] MEDS: levoFLOXacin IV 750 MG/150 ML BAG 100 MG IV (09:34)
[2025-01-10] MEDS: Menthol/Lanolin/Calamine/Znox 113 GM Tube 1 APPLIC TOPICAL ×3 (09:35→16:33)
--- NOTE | 2025-01-10 09:59 | WOUNDNOTE ---
skin photo: left lateral lower leg
--- NOTE | 2025-01-10 11:19 | CASEMGMT ---
Social Work SW attempted to verify pt's address, it did not come up as a residence. SW asked pt again, she thinks she gave SW the correct address. Pt is agreeable to SW calling [facility] to verify address as they deliver her medication. SW called [facility], address is [address], and this does come up as a 2 story home. SW also asked pt about a nebulizer, she states Dr. Christopher is going to write a script for one when she leaves here. She states she did get a nebulizer in the past through insurance, but it was a long time ago. SW did verify w/pt that she is able to read, as there was concern about pt's literacy. SW did witness pt looking through notebooks where she had taken notes and was reading through them. Pt is not going to be discharged today. Pt will need assist w/attaining a nebulizer, getting needed appts set up w/transportation, referral to [facility], and possibly a ride home. REJI Kate
--- NOTE | 2025-01-10 12:00 | CASEMGMT ---
Social Work SW called [facility] and left a message. SW sent a new referral to [facility] for pt, and put in the referral that pt may be a good candidate for the AL waiver. SW set up an appt w/Dr. Contreras for 02/26/25 at 12pm, and set up transportation to take pt to and from the appt w/[facility]. SW added this appt to pt's discharge instructions and let pt know. Pt also asked RN about getting a nebulizer, SW spoke w/pt about this just a short time ago. SW reiterated to pt that we will work on getting her a nebulizer when she is discharged. Pt also informed SW she is not going home today. SW spoke w/pt about this already when SW was in to see pt a short time ago. SW let pt know made a referral to [facility] again and had put in there that she may be a good candidate for AL. Pt states no, she does not want to go to AL. SW explained when they call they can also see if she qualifies for any other services. Pt then informed SW that Jose Cruz Worthy from the [employer] is working w/housing to secure her housing. (Yesterday pt had informed SW that she was working with the [facility]). Pt states she will go home to her friend [place] at discharge, and states she may pick her up at discharge. Pt will still need assist for any additional appts to be set up, w/transportation, will need assist in getting a nebulizer and possibly a ride home. Pt does not want to go anywhere except back to Marimar's home. [facility] also needs to be contacted once pt does go back to [facility], so they can follow up w/her there. REJI Kate
[2025-01-10 12:31] LABS: Bedside Glucose 108 mg/dL (74-106)
[2025-01-10 16:55] LABS: Bedside Glucose 96 mg/dL (74-106)
[2025-01-10] MEDS: Atorvastatin Calcium 10 MG Tablet 5 MG PO (20:53)
[2025-01-10 21:37] LABS: Bedside Glucose 107 mg/dL (74-106)
[2025-01-11 02:00] VITALS: BP 109/68; PULSE 81; RESP 20; TEMP 36.8; O2SAT 94
[2025-01-11 05:48] VITALS: BMI 46.7
[2025-01-11 07:16] LABS: Bedside Glucose 88 mg/dL (74-106)
[2025-01-11] MEDS: Ipratropium/Albuterol Sulfate 3 ML AMPUL.NEB INHALATION (07:26)
[2025-01-11 07:28] VITALS: PULSE 72; RESP 16; O2SAT 97
[2025-01-11 08:00] VITALS: BP 82/37; PULSE 71; RESP 12; TEMP 36.7; O2SAT 92
--- NOTE | 2025-01-11 08:42 | CASEMGMT ---
Social Work Eduard from [facility] left SW a message, SW left a message back requesting a return call. REJI Kate
[2025-01-11] MEDS: Citalopram 10 MG Tablet PO (08:46)
[2025-01-11] MEDS: QUEtiapine 100 MG Tablet 200 MG PO (08:46)
[2025-01-11] MEDS: Aspirin 81 MG TAB.CHEW PO (08:46)
[2025-01-11] MEDS: Pantoprazole Sodium 40 MG Tablet PO (08:46)
[2025-01-11] MEDS: APIXABAN 5 MG TABLET PO (08:46)
[2025-01-11] MEDS: Midodrine HCl 5 MG Tablet 10 MG PO ×2 (08:46→11:53)
[2025-01-11] MEDS: 0.9% Normal Saline (250mL Bag) 250 ML 15 ML IV (09:40)
[2025-01-11] MEDS: 0.9% Saline Lock 10 ML Syringe IV (09:43)
[2025-01-11] MEDS: levoFLOXacin IV 750 MG/150 ML BAG 100 MG IV (09:43)
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
--- NOTE | 2025-01-11 10:16 | PCM.DC ---
Discharge Instructions DC O2, CPAP, BIPAP needs Home O2 Discharge instructions: No Follow Up Care Test Results: Test results from this visit will be discussed in further detail at your follow-up appointment, if applicable. Discharge Plan Admission Admit Date/Time: 01/08/25 19:23 Attending Provider: Peter Herbert Primary Care Provider: Homer Bradford Consulting Providers: Lauren Vela; Luis Antonio Navarro Discharge Orders/Prescriptions Prescriptions: New midodrine 10 mg tablet 10 mg PO TIDCM 30 Days Qty: 90 0RF levofloxacin 500 mg tablet 500 mg PO DAILY 1 Days Qty: 1 0RF dextromethorphan-guaifenesin [Mucinex DM] 60-1,200 mg tablet extended release 12 hr 1 tab PO Q12H 7 Days Qty: 14 0RF Continued albuterol sulfate 90 mcg/actuation HFA aerosol inhaler 2 puff inhalation Q6H PRN (Reason: shortness of breath or wheezing) Qty: 6.7 0RF citalopram 10 mg Tablet 10 mg PO DAILY Qty: 30 0RF Eliquis 5 mg Tablet 5 mg PO Q12 Qty: 60 0RF lovastatin 40 mg tablet 20 mg PO QHS omeprazole 40 mg capsule,delayed release(DR/EC) 40 mg PO DAILY lorazepam 0.5 mg tablet 0.5 mg PO Q12H PRN (Reason: anxiety) aspirin 81 mg capsule 81 mg PO DAILY furosemide 20 mg tablet 20 mg PO BID ipratropium-albuterol 0.5 mg-3 mg(2.5 mg base)/3 mL solution for nebulization 3 ml inhalation Q20M PRN (Reason: shortness of breath) 30 Days Qty: 90 0RF Rx Instructions: for 3 doses Held quetiapine 100 mg Tablet 200 mg PO BID Qty: 120 0RF Hold Instructions: Hold while taking Levaquin only for tomorrow trazodone 100 mg Tablet 200 mg PO QHS Qty: 60 0RF Hold Instructions: Hold while taking Levaquin tomorrow. Referrals / Follow Up: Homer Bradford MD [Primary Care Provider] - 01/17/25 11:40 am Jovana Contreras MD [Non-Staff] - 02/26/25 12:00 pm ([facility]([phone]) will pick you up at 11-11:30, and will pick you up from [facility] at 1pm after the appt.) Dallin Christopher, [Med Staff - Active Staff] - Within 2 Weeks Disposition Disposition (needs filled in before D/C Order can be placed): Home, Self Care
--- NOTE | 2025-01-11 11:36 | WOUNDNOTE ---
Redness improved to the left lateral lower leg. small blisters still intact. pt states she is being discharged today. denies further needs at this time.
[2025-01-11 11:45] LABS: Bedside Glucose 121 mg/dL (74-106)
--- NOTE | 2025-01-11 11:47 | CASEMGMT ---
Social Work- SW met with pt to discuss discharge planning. SW introduced self and role; pt agreeable to meet. Pt provided contact for Marimar, friend and asked SW to call Marimar to arrange d/c transport. SW spoke with Marimar who reports that she can fiber picker pt at or before 12:30. Marimar would like pt to be at the main entrance, as Marimar is short on time due to work. ANGI notified bedside nurse and community development director. BILL Roland
[2025-01-11 11:56] VITALS: BP 113/66; PULSE 73; RESP 16; TEMP 36.3; O2SAT 93; O2SAT 95
--- NOTE | 2025-01-11 11:56 | CASEMGMT ---
Addendum entered by Shyla Stack 01/11/25 16:39: Noted Rx for albuterol inhaler was sent to [facility] retail pharmacy and Rx for DuoNeb was sent to [facility]. Call placed to [facility] retail pharmacy and asked for Rx for DuoNeb be transferred to [facility] pharmacy from [facility], as pt's friend wishes to pick both of them up tomorrow @ [facility] retail pharmacy. Addendum entered by Shyla Stack 01/11/25 13:40: 12:40 PM: Per [facility] retail pharmacy there are 3 Rx's ready to be picked up now. Rx's for inhaler and nebulizer solution have not been sent to [facility] retail pharmacy yet and pt's ride waiting outside to take her home. OMARI DE SANTIAGO spoke w/Dr Herbert again about this & made aware pt is requesting Rx's for both inhaler and neb mirtha't. Pt made aware. She states she needs to leave now. OMARI DE SANTIAGO inquired if her friend could pick them up later today, she states her friend has to go to work and is unable to come back later. She states, however, that she may be able to come pick them up tomorrow. Pt discharged and taken via W/C to hospital entrance by staff. OMARI DE SANTIAGO followed pt down to the entrance. Pt's friend, Marimar, in her car awaiting to take pt home. OMARI DE SANTIAGO spoke w/her re: Rx's. She was made aware 3 Rx's ready to be picked up now. She states she can go through the drive-thru and pick them up now. Made aware there should be 2 Rx's ready to be picked up tomorrow. She states she can come pick those up tomorrow as well. She was made aware the pharmacy does close @ 1 PM on Sat. Addendum entered by Shyla Stack 01/11/25 12:23: Per Saundra SALCIDO, ambulatory pulse ox testing has been completed. Pt had walked stairs w/therapy and then walked for the ambulatory testing. Per Saundra, pulse ox dropped down to 87% on RA and then came back right back up to 90/91% very quickly/within seconds, after pt sat down. OMARI DE SANTIAGO to room to discuss home O2. Pt states she does not want any home oxygen set up, stating That's why I use my inhaler. Dr Herbert made aware. Heath has delivered nebulizer to pt's room. Original Note: OMARI DE SANTIAGO NOTE: OMARI DE SANTIAOG informed pt needs a nebulizer. RN CM to room. Pt sitting up in chair. She verifies she does need a nebulizer, stating she lost it. She denies having preference of DME co., made aware [employer] is affiliated /[facility], and she states to use [employer]. Script obtained from Dr Herbert, sent to [employer] via [employer] and call placed to Heath @ [facility], who states he will bring that up to pt's room now. Pt also informed this OMARI DE SANTIAGO that she needs a new Rx for a Ventolin inhaler and also needs nebulizer solution, stating she also lost all of that. Dr Herbert made aware. Walt KELLEYN OMARI CM
[2025-01-11 12:05] VITALS: O2SAT 87; O2SAT 91; O2SAT 99
--- NOTE | 2025-01-11 12:05 | PCM.DC.SUM ---
Providers Date of Admission: 01/08/25 Date of Discharge: 01/11/25 Primary Care Physician: Dr. Homer Bradford MD Consultations 01/08/25 20:32 Consult: Signaler / Pulmonary Medicine Routine Consulting Provider: Intensivists/Pulmonary Med Reason for Consult: Sepsis, Encephalopathy, UTI EMERGENT Consult: No MD Notified: Yes Date Notified: 01/09/25 Time Notified: 08:00 Method of Notification: Verbal 01/10/25 08:29 Consult: Onc/Wound/sap bi developer Routine Comment: Reason for Consult:: Left lg worund, swelling/venous HTN Reason For Visit: SEPSIS UTI Diagnosis Discharge Diagnosis (1) Sepsis: Status: Acute Code(s): A41.9 - Sepsis, unspecified organism Plan Patient is a 64-year-old female who presented to [facility] ED on 01/08/2025 with altered mentation. 1. Sepsis suspected secondary to UTI ? Signaler following. Met sepsis criteria on admit with tachycardia, tachypnea, hypotension, lactic acidosis, encephalopathy and renal insufficiency with suspected urinary source. Hypotension was fluid responsive, did not require pressors on admit. UA with 100 leukocyte esterase, negative nitrates, 25-50 WBCs, 2+ bacteria. Renal ultrasound with small nonobstructing stones, otherwise normal. Chest x-ray unremarkable. Urine culture and blood cultures pending. Notably urine culture in October grew Klebsiella sensitive to everything but ampicillin. Continue treatment with IV Levaquin. Continue to monitor closely. 01/10: Blood and urine cultures are pending. Previous urine culture on 11/12 was negative. 01/11 her cultures are negative. Sepsis resolved. Since her infectious workup was negative, total of 5 days of antibiotic duration. 1 more tablet of Levaquin prescribed. Hold Seroquel and trazodone while taking Levaquin. Follow-up in pulmonary clinic. 2. Acute metabolic encephalopathy, improving ? Suspected secondary to sepsis as above. CT brain negative on admit. Much improved on hospital day 2, fatigued but alert and oriented x 3. Continue treatment as above. Avoid sedating medications as able. 01/10: Metabolic encephalopathy resolved. 3. STEVEN on CKD stage IIIb, resolved ? Creatinine 1.8 on admit, baseline around 1.3. Resolved back to baseline on hospital day 2 after IV fluid resuscitation. 01/10: BUN/creatinine 12/1.25. AG 12. Bicarb 20. Creatinine back on the baseline. STEVEN resolved 4. Acute on chronic debility, poor social situation with homelessness ? PT/OT/case management consulted. Patient has reportedly been staying with a friend in [place] recently and has been applying for housing. Appreciate therapy and case management assistance. 5. COPD/asthma with acute hypoxia ? Patient requiring 2 L nasal cannula on admit to maintain appropriate oxygen saturations. Chest x-ray on admit unremarkable. Suspect patient may be close to her baseline. Continue home inhalers and wean supplemental oxygen as able. 01/11: Prescription given for DuoNeb nebulization and Mucinex DM. Continue incentive spirometry and PEP for 1 week Chronic medical conditions: ? Class III obesity: BMI 45 on admit. Complicates hospital course, care and prognosis. ? Paroxysmal A-fib, hypertension, hyperlipidemia: Continue home Eliquis, aspirin and statin. Holding home Lasix for now given sepsis as above. ? Type 2 diabetes mellitus: A1c 6.0% on admit. Not on home indication. Will treat with sliding scale insulin with meals while inpatient, adjust as needed. ? Tobacco abuse: NRT available per patient request. Discussed cessation on discharge. ? Anxiety/depression/bipolar disorder: Continue home citalopram, Seroquel, Ativan twice daily as needed and trazodone at night as needed. ? GERD: Continue home PPI. DVT prophylaxis: Not indicated, on Eliquis CODE STATUS: Full code, verified Discharge medication reconciliation done. Discharge follow-up instructions completed. Discharge process discussed with the patient and all questions were answered to patient's satisfaction. Follow with PCP in 1 to 2 weeks Total time spent, exact 35 minutes on discharge meds reconciliation, examination, coordination of care with nurses and ancillary staff, review of imaging and blood test and discussion with the patient on follow-up instructions. Laboratory Results 01/09/25 08:25: POC Glucose 110 H 01/09/25 12:13: POC Glucose 115 H 01/09/25 16:22: POC Glucose 96 01/09/25 20:59: POC Glucose 96 01/10/25 05:30: WBC 9.3, RBC 3.98 L, Hgb 12.3, Hct 37.8, MCV 95.0, MCH 30.9, MCHC 32.5, RDW Std Deviation 48.2 H, RDW Coeff of Robert 13.7, Plt Count 216, MPV 10.4, Sodium 144, Potassium 3.5, Chloride 112 H, Carbon Dioxide 19.9 L, Anion Gap 12, BUN 12, Creatinine 1.25 H, Estim Creat Clear Calc 55.62, Est GFR (MDRD) Non-Af 49 L, BUN/Creatinine Ratio 9.7 L, Glucose 92, Calcium 8.9 01/10/25 06:49: POC Glucose 90 Medications at Discharge Home Medications albuterol sulfate 90 mcg/actuation aerosol inhaler 2 puff inhalation Q6H PRN shortness of breath or wheezing #6.7 grams 11/07/24 apixaban 5 mg tablet (Eliquis) 5 mg PO Q12 #60 tabs 11/07/24 citalopram 10 mg tablet 10 mg PO DAILY #30 tabs 11/07/24 quetiapine 100 mg tablet 200 mg (2 x 100 mg) PO BID #120 tabs 11/07/24 Held on 01/11/25. Instructions: Hold while taking Levaquin only for tomorrow trazodone 100 mg tablet 200 mg (2 x 100 mg) PO QHS #60 tabs 11/07/24 Held on 01/11/25. Instructions: Hold while taking Levaquin tomorrow. lorazepam 0.5 mg tablet 0.5 mg PO Q12H PRN anxiety 11/14/24 lovastatin 40 mg tablet 20 mg PO QHS 11/14/24 omeprazole 40 mg capsule,delayed release 40 mg PO DAILY 11/14/24 aspirin 81 mg capsule 81 mg PO DAILY 01/08/25 furosemide 20 mg tablet 20 mg PO BID 01/08/25 dextromethorphan-guaifenesin ER 60 mg-1,200 mg tab,extend release,12hr (Mucinex DM) 1 tab PO Q12H 7 days #14 tabs 01/11/25 ipratropium 0.5 mg-albuterol 3 mg (2.5 mg base)/3 mL nebulization soln 3 ml inhalation Q20M PRN shortness of breath 1 month #90 mL 01/11/25 levofloxacin 500 mg tablet 500 mg PO DAILY 1 day #1 TAB 01/11/25 midodrine 10 mg tablet 10 mg PO TIDCM 30 days #90 tabs 01/11/25 Physical Exam Narrative Seen and examined. Confusion has resolved Cultures are negative. UTI ruled out. This time she denies new burning micturition or acute LUTS. States she has mild abrasion of the bellybutton due to diaper Physical exam General: Alert, Oriented x3, Cooperative. BMI 45.5 kg/m? HEENT: Atraumatic, PERRLA, EOMI, Normocephalic. Oral: No Gingival or Mucosal Lesions/ Ulcerations Neck: Supple, No JVD, Negative Carotid Bruits Chest wall/Lungs: Air entry diminished in bilateral lung bases. No crepitation/rhonchi Cardiovascular: Regular rate and rhythm, Normal S1,S2, No M/G/R Abdomen: Bowel Sounds Present, Soft, Non Tender, Non-Distended : Good urine output. No renal angle tenderness. No suprapubic tenderness. Extremities: No edema, Capillary Refill Less than 3 Seconds Skin: Small superficial left leg wound. Left leg more swollen than right, chronic as per Musculoskeletal: No Tenderness to Palpation of Joints or Extremities. ROM mild restriction at his Neurological: Cranial nerves II-XII grossly intact, DTR 2+/4. No acute focal neurological deficit. Psych/Mental Status: Flat affect Weight / BMI Weight Weight: 253 lb 12.033 oz Body Mass Index (BMI) 46.7 ABG / Lab / Microbiology Data 01/10/25 05:30 01/10/25 05:30 Laboratory: Laboratory Results - last 24 hr 01/10/25 11:43: POC Glucose 108 H 01/10/25 16:32: POC Glucose 96 01/10/25 20:59: POC Glucose 107 H 01/11/25 06:11: POC Glucose 88 01/11/25 11:17: POC Glucose 121 H Microbiology: Microbiology 01/08/25 19:00 Blood Culture (Wb) - Right Wrist Blood Culture - Preliminary No growth in 48 hours. 01/08/25 19:00 Blood Culture (Wb) - Anticubital Left Blood Culture - Preliminary No growth in 48 hours. 01/08/25 21:20 Urine Catheter - Sorto Urine Culture - Final Culture exhibits no growth. Radiography Diagnostic Testing: Radiology Impression Venous Doppler Study 01/10/25 08:29 Interpretation Summary Deep veins of the bilateral lower extremities are patent and compressible segmentally. There is no evidence of bilateral lower extremity deep vein thrombosis. The bilateral great saphenous veins appear patent and compressible segmentally. Ordering Physician: Peter Herbert Referring Physician: Homer Bradford Performed By: Sintia Tavarez, RDTIGIST, RVT D/C Instructions DC O2, CPAP, BIPAP Needs Home O2 Discharge instructions: No Meaningful Use Info Meaningful Use Meaningful Use Diagnoses (Choose all that apply): None applicable Ischemic Stroke Statin Dosing Therapy Reference: STATIN DOSE THERAPY REFERENCE: * Patients > 75 years receive moderate or high dose statin therapy. * Patients 75 years or YOUNGER should receive HIGH intensity statin dose unless contraindicated. You will be required to document reason for non-treatment if statin daily dose does not meet guidelines. HIGH DOSE STATIN THERAPY DAILY Atorvastatin > than or = to 40 mg Rosuvastatin > than or = to 20 mg Amlodipine + Atorvastatin > than or = to 2.5/40 mg Ezetimibe + Simvastatin 10/80 mg Simvastatin 80mg Discharge Plan Admission Admit Date/Time: 01/08/25 19:23 Attending Provider: Peter Herbert Primary Care Provider: Homer Bradford Consulting Providers: Lauren Vela; Luis Antonio Navarro Discharge Orders/Prescriptions Prescriptions: New midodrine 10 mg tablet 10 mg PO TIDCM 30 Days Qty: 90 0RF levofloxacin 500 mg tablet 500 mg PO DAILY 1 Days Qty: 1 0RF dextromethorphan-guaifenesin [Mucinex DM] 60-1,200 mg tablet extended release 12 hr 1 tab PO Q12H 7 Days Qty: 14 0RF Continued albuterol sulfate 90 mcg/actuation HFA aerosol inhaler 2 puff inhalation Q6H PRN (Reason: shortness of breath or wheezing) Qty: 6.7 0RF citalopram 10 mg Tablet 10 mg PO DAILY Qty: 30 0RF Eliquis 5 mg Tablet 5 mg PO Q12 Qty: 60 0RF lovastatin 40 mg tablet 20 mg PO QHS omeprazole 40 mg capsule,delayed release(DR/EC) 40 mg PO DAILY lorazepam 0.5 mg tablet 0.5 mg PO Q12H PRN (Reason: anxiety) aspirin 81 mg capsule 81 mg PO DAILY furosemide 20 mg tablet 20 mg PO BID ipratropium-albuterol 0.5 mg-3 mg(2.5 mg base)/3 mL solution for nebulization 3 ml inhalation Q20M PRN (Reason: shortness of breath) 30 Days Qty: 90 0RF Rx Instructions: for 3 doses Held quetiapine 100 mg Tablet 200 mg PO BID Qty: 120 0RF Hold Instructions: Hold while taking Levaquin only for tomorrow trazodone 100 mg Tablet 200 mg PO QHS Qty: 60 0RF Hold Instructions: Hold while taking Levaquin tomorrow. Referrals / Follow Up: Dallin Christopher DO [Med Staff - Active Staff] - Within 2 Weeks Homer Bradford MD [Primary Care Provider] - 01/17/25 11:40 am Jovana Contreras MD [Non-Staff] - 02/26/25 12:00 pm ([facility]([phone]) will pick you up at 11-11:30, and will pick you up from [facility] at 1pm after the appt.) Disposition Disposition (needs filled in before D/C Order can be placed): Home, Self Care Charges/Coding Visit Charges Inpatient E&M: 86570 Disch Hosp >30min
--- NOTE | 2025-01-11 12:33 | CASEMGMT ---
Social Work Pt's appts are set for Dr. Contreras, Dr. Bradford and Dr. Christopher. SW set up transport for all three appts w/[facility] [employer] [facility]. SW wrote out and gave pt all of the information for the appts and pickup and drop off times, with phone numbers for the doctor offices and [facility] [facility], reviewed it w/pt. Pt states she doesn't need to follow up w/Dr. Bradford as soon as possible, but in February. SW explained the doctor wants her to see her PCP next week since she was in the hospital. SW let pt know if she does not plan to attend the appt to cancel the appt and transportation. REJI Kate
--- NOTE | 2025-01-11 14:09 | CASEMGMT ---
Social Work SW received an email from [facility] stating pt had informed them she did not want assist with finding assisted living, [facility]. SW emailed back requesting they assess her to see if she would qualify for any aide services at home. REJI Kate
== END 2025-01-11 12:43 | disposition home or self-care (01) | DRG 720 ==
LOC: ED 17:14 → ICU 22:01 → MS3 01-10 18:53
PROVIDERS: Hospitalist; Admitting Provider Family Medicine; Emergency Provider Emergency Medicine; PCP Family Medicine; Visit Provider Internal Medicine
DX: A41.9 Sepsis, unspecified organism (principal); R65.21 Severe sepsis with septic shock; G93.41 Metabolic encephalopathy; Z59.02 Unsheltered homelessness; E66.01 Morbid (severe) obesity due to excess calories; J44.9 Chronic obstructive pulmonary disease, unspecified; F31.9 Bipolar disorder, unspecified; E11.22 Type 2 diabetes mellitus with diabetic chronic kidney disease; N18.32 Chronic kidney disease, stage 3b; I12.9 Hypertensive chronic kidney disease with stage 1 through stage 4 chronic kidney disease, or unspecified chronic kidney disease; I48.0 Paroxysmal atrial fibrillation; Z68.42 Body mass index [BMI] 45.0-49.9, adult; F17.200 Nicotine dependence, unspecified, uncomplicated; K21.9 Gastro-esophageal reflux disease without esophagitis; E78.00 Pure hypercholesterolemia, unspecified; F41.9 Anxiety disorder, unspecified; S89.92XA Unspecified injury of left lower leg, initial encounter; Z79.01 Long term (current) use of anticoagulants; Z79.82 Long term (current) use of aspirin; N13.9 Obstructive and reflux uropathy, unspecified; N39.0 Urinary tract infection, site not specified; E66.813 Obesity, class 3; R09.02 Hypoxemia; Z86.73 Personal history of transient ischemic attack (TIA), and cerebral infarction without residual deficits; Z79.899 Other long term (current) drug therapy; Z90.49 Acquired absence of other specified parts of digestive tract; R53.81 Other malaise
CPT/HCPCS: 36600; 51702; 70450; 71045; 76770; 80048; 80053; 80307; 81001; 82077; 82803; 82962; 83036; 83605; 83690; 85025; 85027; 85610; 85730; 87040; 87086; 93005; 93970; 94640; 94668; 97162; 97166; 99285; A4216

== ENCOUNTER 2025-01-29 09:56 | Outpatient (RCR) | payer MEDICAID, SELFPAY ==
[2025-01-29 10:17] VITALS: BP 110/65; PULSE 89; RESP 16; TEMP 35.9; BMI 44.9
--- NOTE | 2025-01-30 13:39 | WC ---
PHOTO 01/29/25 RIGHT BUTTOCK
--- NOTE | 2025-01-30 13:39 | WC ---
PHOTO 01/29/25 RIGHT BUTTOCK
--- NOTE | 2025-01-31 11:52 | PCM.WC.HP ---
History of Present Illness Date of Service: 01/29/25 Chief Complaint: Right buttock ulceration History of Wound: This is a 65-year-old female with multiple pre-existing medical conditions, who presented with a small ulceration on her right buttock. It has reportedly been present for approximately 3 weeks. The patient has a history of type 2 diabetes mellitus, chronic kidney disease, morbid obesity, atherosclerotic heart disease, cerebrovascular accident, COPD, hyperlipidemia, and bipolar disorder. She is also known to be a smoker, and smokes 2 packs of cigarettes per day for 50 years. [facility] Medical History Decubitus ulcer of buttock, stage 1 Encounter for smoking cessation counseling History of COPD Urinary tract infection History of echocardiogram Wears glasses Anxiety Depression Post-menopausal History of renal disease High cholesterol Back pain TIA (transient ischemic attack) Gastric reflux Smoker Shortness of breath on exertion History of pain when walking History of edema Cardiology follow-up encounter History of heart attack Chest pain History of left heart catheterization (LHC) (~12/30/20) CKD (chronic kidney disease) stage 3, GFR 30-59 ml/min Lung nodule COPD (chronic obstructive pulmonary disease) Paroxysmal atrial fibrillation Elevated liver enzymes Acute respiratory failure with hypoxia Stroke IBS (irritable bowel syndrome) Hyperlipidemia Heart disease Migraines Frequent headaches Gastrointestinal problem Diabetes History of back problems Asthma Arthritis Home Medications ?Medication ?Instructions ?Recorded ?Last Taken ?Type apixaban 5 mg tablet (Eliquis) 5 mg PO Q12 #60 tabs 11/07/24 Unknown Rx citalopram 10 mg tablet 10 mg PO DAILY #30 tabs 11/07/24 Unknown Rx quetiapine 100 mg tablet 200 mg (2 x 100 mg) PO BID #120 11/07/24 Unknown Rx Held on 01/11/25. tabs Instructions: Hold while taking Levaquin only for tomorrow trazodone 100 mg tablet 200 mg (2 x 100 mg) PO QHS #60 tabs 11/07/24 Unknown Rx Held on 01/11/25. Instructions: Hold while taking Levaquin tomorrow. lorazepam 0.5 mg tablet 0.5 mg PO Q12H PRN anxiety 11/14/24 Unknown History lovastatin 40 mg tablet 20 mg PO QHS 11/14/24 Unknown History omeprazole 40 mg capsule,delayed 40 mg PO DAILY 11/14/24 Unknown History release aspirin 81 mg capsule 81 mg PO DAILY 01/08/25 Unknown History furosemide 20 mg tablet 20 mg PO BID 01/08/25 Unknown History albuterol sulfate 90 mcg/actuation 2 puff inhalation Q6H PRN 01/11/25 Unknown Rx aerosol inhaler shortness of breath or wheezing #8.5 grams dextromethorphan-guaifenesin ER 60 1 tab PO Q12H 7 days #14 tabs 01/11/25 Unknown Rx mg-1,200 mg tab,extend release,12hr (Mucinex DM) ipratropium 0.5 mg-albuterol 3 mg 3 ml inhalation Q20M PRN shortness 01/11/25 Unknown Rx (2.5 mg base)/3 mL nebulization of breath 1 month #90 mL soln levofloxacin 500 mg tablet 500 mg PO DAILY 1 day #1 TAB 01/11/25 Unknown Rx midodrine 10 mg tablet 10 mg PO TIDCM 30 days #90 tabs 01/11/25 Unknown Rx fesoterodine 4 mg tablet,extended 4 mg PO DAILY 01/29/25 Unknown History release 24 hr mupirocin 2 % topical ointment 1 applic topical TID 01/29/25 Unknown History nitrofurantoin 1 cap PO BID 01/29/25 Unknown History monohydrate/macrocrystals 100 mg capsule quetiapine 200 mg tablet,extended PO 01/29/25 Unknown History release 24 hr spironolactone 25 mg tablet 25 mg PO DAILY 01/29/25 Unknown History vibegron 75 mg tablet (Gemtesa) 75 mg PO DAILY 01/29/25 Unknown History Allergy/AdvReac Type Severity Reaction Status Date / Time Penicillins Allergy Intermediate Hives Verified 01/29/25 10:27 carbamazepine (From Tegretol) AdvReac Intermediate Nausea Verified 01/29/25 10:27 benztropine AdvReac Unknown Verified 01/29/25 10:27 diazepam (From Valium) AdvReac Other Verified 01/29/25 10:27 Sulfa (Sulfonamide AdvReac Nausea Verified 01/29/25 10:27 Antibiotics) thioridazine AdvReac Nausea Verified 01/29/25 10:27 thioridazine HCl (From AdvReac Other Verified 01/29/25 10:27 Mellaril) Family History Grandmother Cancer stomach Father Cancer lung Sister Breast cancer Surgical History Hx of surgical procedure History of carpal tunnel surgery History of elbow surgery H/O shoulder surgery H/O hand surgery H/O dilation and curettage Hx of cholecystectomy History of tonsillectomy Social History household members: other details: Living in apt with friends, now moving out without home at discharge. housing: homeless Smoking Status: Heavy Smoker (>10/day) alcohol intake: never substance use type: does not use caffeine: Yes what type of physical activity do you participate in: walking seatbelt use: always do you feel safe at home: Yes Vital Signs Vital Signs Vital Signs: Weight Weight: 246 lb Body Mass Index (BMI) 44.9 Physical Exam Const alert, oriented x3, no apparent distress and well nourished Constitutional Narrative: The patient is morbidly obese. Her BMI is 45.0. General Appearance: cooperative, comfortable and well developed Orientation / Consciousness: awake, oriented to person, oriented to place and oriented to time Exam Limitations: no limitations HEENT normocephalic and head/scalp atraumatic Head and Scalp: normal to inspection, normocephalic and atraumatic Face and Sinus: normal facial exam Nose: external nose normal External Ear: external ears normal Eyes EOMs intact bilaterally General Eye: normal appearance of both eyes Neck full ROM Resp normal respiratory effort, normal air movement, no retractions and no use of accessory muscles Effort and Inspection: able to speak in complete sentences Extremity no calf tenderness Skin Wound Narrative: A very superficial ulceration is noted on the right upper buttock. There is no sign of infection or cellulitis. The ulceration is smaller in size. Dimensions are documented elsewhere. The ulceration consists of a clustered area of superficial eschar, which is very firmly attached, and does not disengage even with an attempt to unroof using a sterile curette. Neuro oriented x3, CN's II-XII intact bilaterally, moves all extremities and no focal motor deficits Sensorium / Orientation: awake, alert, oriented to person, oriented to place and oriented to time Psych Appearance: grossly normal and appropriate Attitude: calm Activity / Motor Behavior: appropriate eye contact Speech: normal speech Mood & Affect: euthymic mood Thought Process: normal thought process Thought Content: normal thought content Attention / Concentration: attention grossly intact Debridement Note Debridement Note Debridement Free Text: Technically, debridement was not performed. Initial attempt was made to unroof the clustered eschar over the small, superficial ulceration. However, the eschar was somewhat superficial, and the decision was made to forego a formal debridement, but rather to temporize, even expectation that the eschar may slough over the next 10 to 14 days. No debridement was completed: No debridement was completed today Post-Debridement Measurements and Additional Note: Post-Debridement Measurements/Treatment - Nurse 1 - General Ulcer Assessment Start: 01/29/25 10:15 Freq: Status: Active Protocol: GABRIELLA Activity Type Activity Date Activity User E-sign Co-sign Detail Recorded Client Recorded Date Recorded By Document 01/29/25 10:17 KW [id number] 01/29/25 10:25 01/29/25 10:17 - Today's Visit Information Type of service Initial Visit Arrival Mode Ambulatory Patient Identification Verified (Name & Yes ) Height and Weight Height 5 ft 2 in Weight 246 lb Weight in Pounds 246.0 lbs Body Mass Index (BMI) 44.9 BMI Classification Obese Vital Signs Temperature (97.8 F-99.1 F) 96.6 F L Temperature Source Temporal Pulse Rate (60-100) 89 Pulse Location Monitor Respiratory Rate (12-18) 16 Respiratory rate source Observation Blood Pressure (90/60-120/80) 110/65 Blood Pressure Mean 80 Source Monitor Position Sitting Blood Pressure Location Right Arm History Since Last Visit- (Skip if this is Patient's initial visit) Left Footwear Regular Shoe Right Footwear Regular Shoe Pain Scale: 0-10 Numeric Is Patient Pain Free? Yes - Nurse 1 - General Ulcer Measurement Start: 01/29/25 10:15 Freq: Status: Active Protocol: Activity Type Activity Date Activity User E-sign Co-sign Detail Recorded Client Recorded Date Recorded By Document 01/29/25 10:17 KW [id number] 01/29/25 10:25 01/29/25 10:17 Wound Center Nurse 1 #1 rt buttock -Current Size (cm) - Length 1 -Current Size (cm) - Width 1 -Current Size (cm) - Depth 0.1 -Total Square Cm 1 -Date of Last Picture (Recall this 01/29/25 field) -Exudate Amt None Present -Texture (Chelsea-wound Skin Appearance) Assessed -Moisture (Chelsea-wound Skin Appearance) Assessed -Color (Chelsea-wound Skin Appearance) Assessed -Temperature (Chelsea-wound Skin No Abnormality Appearance) (Pt Warm) -Tenderness on Palpation (Chelsea-wound No Skin Appearance) -Ulcer Cleansing Soap and Water -Foul Odor after Cleansing No -Anesthetic Used 5% Lidocaine Gel -Wound Comment(s) scabbed WC - Nurse 2 - General Ulcer CM Notes Start: 01/29/25 10:15 Freq: Status: Active Protocol: Activity Type Activity Date Activity User E-sign Co-sign Detail Recorded Client Recorded Date Recorded By Document 01/29/25 10:45 [email or web address] [id number] 01/29/25 10:48 DS 01/29/25 10:45 Wound Center Nurse 2 -Time 10:45 -Correct Patient Yes -Correct Side, Site, Position Yes -Procedure Performed No -Post Debridement (cm) - Length 2.0 -Post Debridement (cm) - Width 0.3 -Post Debridement (cm) - Depth 0.1 -Total Square (Post) (cm) 0.60 -Area of Debridement (cm) - Length 2.0 -Area of Debridement (cm) - Width 0.3 -Total Square (Area) (cm) 0.60 -Tunneling No -Undermining/Tunneling No -Circular Undermining No -Wound/Ulcer Outcome Not Healed -Foul Odor after Cleansing No -Bioengineered Tissue No Pain Scale: 0-10 Numeric Is Patient Pain Free? Yes - Nurse 3 - General Ulcer D/C NN Start: 01/29/25 10:15 Freq: Status: Active Protocol: Activity Type Activity Date Activity User E-sign Co-sign Detail Recorded Client Recorded Date Recorded By Document 01/29/25 11:02 MELLISA [id number] 01/29/25 11:02 MELLISA 01/29/25 11:02 Wound Care Center Nurse 3 #1 rt buttock -Ulcer Cleansing Rinsed/ Irrigated with Saline -Foul Odor after Cleansing No -Primary Dressing Applied C Hydrogel -Primary Dressing Covered/Secured with Dry Gauze, Secured with Tape -Hydrogel 1 Pain Scale: 0-10 Numeric Is Patient Pain Free? Yes WC - Visit Discharge Discharge Condition Stable Ambulatory Status Ambulatory Transportation Private Auto Medication Reconcilliation completed & Yes provided to patient/care provider Clinical Summary of Care Provided Yes Charges/Coding Visit Charges Office Visits / Consults: 65091 OV L4 New 45min Assessment/Plan Assessment/Plan (1) Decubitus ulcer of buttock, stage 1: CODE(S): L89.301 - Pressure ulcer of unspecified buttock, stage 1 QUALIFIERS: Laterality: right Qualified Code(s): L89.311 - Pressure ulcer of right buttock, stage 1 (2) DM (diabetes mellitus), type 2: CODE(S): E11.9 - Type 2 diabetes mellitus without complications (3) 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 mellitus: CODE(S): E10.22 - Type 1 diabetes mellitus with diabetic chronic kidney disease; N18.30 - Chronic kidney disease, stage 3 unspecified (4) Asthma-COPD overlap syndrome: CODE(S): J44.9 - Chronic obstructive pulmonary disease, unspecified (5) Nicotine addiction: CODE(S): F17.200 - Nicotine dependence, unspecified, uncomplicated (6) Smoking greater than 40 pack years: CODE(S): F17.210 - Nicotine dependence, cigarettes, uncomplicated (7) Encounter for smoking cessation counseling: CODE(S): Z71.6 - Tobacco abuse counseling (8) Urinary incontinence: CODE(S): R32 - Unspecified urinary incontinence QUALIFIERS: Urinary Incontinence type: continuous leakage Qualified Code(s): N39.45 - Continuous leakage (9) PVD (peripheral vascular disease): CODE(S): I73.9 - Peripheral vascular disease, unspecified (10) HLD (hyperlipidemia): CODE(S): E78.5 - Hyperlipidemia, unspecified (11) Paroxysmal atrial fibrillation: CODE(S): I48.0 - Paroxysmal atrial fibrillation (12) COPD (chronic obstructive pulmonary disease): CODE(S): J44.9 - Chronic obstructive pulmonary disease, unspecified QUALIFIERS: COPD type: unspecified COPD Qualified Code(s): J44.9 - Chronic obstructive pulmonary disease, unspecified (13) CKD (chronic kidney disease) stage 3, GFR 30-59 ml/min: CODE(S): N18.30 - Chronic kidney disease, stage 3 unspecified (14) Tardive dyskinesia: CODE(S): G24.01 - Drug induced subacute dyskinesia (15) Asthmatic bronchitis , chronic: CODE(S): J44.9 - Chronic obstructive pulmonary disease, unspecified; J45.909 - Unspecified asthma, uncomplicated (16) Obesity, morbid, BMI 40.0-49.9: CODE(S): E66.01 - Morbid (severe) obesity due to excess calories (17) Bipolar disorder: CODE(S): F31.9 - Bipolar disorder, unspecified QUALIFIERS: Active/Remission status: remission status unspecified Qualified Code(s): F31.9 - Bipolar disorder, unspecified PLAN: Plan This is a morbidly obese, diabetic 65-year-old female who presented with a small, superficial ulceration of the right upper buttock. The ulceration appears to have been present for approximately 3 weeks. An initial attempt at debridement demonstrated the eschar to be firmly attached, but resistant to elevation from the underlying ulcer. Therefore, the eschar was left in place, anticipating that it may spontaneously slough over the next 10 to 14 days. The patient has been instructed to implement offloading measures. These measures have been discussed in detail. Patient has been counseled to discontinue her smoking habit. She has been encouraged to optimize her nutritional intake. We are to implement the use of collagen hydrogel topically to the ulceration on a daily basis, covered with gauze. The patient is to return in 2 weeks for reevaluation. Total time: 48 minutes
== END 2025-02-14 23:59 | disposition home or self-care (01) ==
LOC: WC 09:56
PROVIDERS: PCP Family Medicine; Referring Provider Physician Assistant; Visit Provider Surgery
DX: L89.311 Pressure ulcer of right buttock, stage 1 (principal); F31.9 Bipolar disorder, unspecified; J44.9 Chronic obstructive pulmonary disease, unspecified; I48.0 Paroxysmal atrial fibrillation; Z68.42 Body mass index [BMI] 45.0-49.9, adult; E66.01 Morbid (severe) obesity due to excess calories; E11.22 Type 2 diabetes mellitus with diabetic chronic kidney disease; E11.51 Type 2 diabetes mellitus with diabetic peripheral angiopathy without gangrene; N18.30 Chronic kidney disease, stage 3 unspecified; Z71.6 Tobacco abuse counseling; I25.10 Atherosclerotic heart disease of native coronary artery without angina pectoris; E78.5 Hyperlipidemia, unspecified; G24.01 Drug induced subacute dyskinesia; R32 Unspecified urinary incontinence; F17.210 Nicotine dependence, cigarettes, uncomplicated; Z79.01 Long term (current) use of anticoagulants; Z86.73 Personal history of transient ischemic attack (TIA), and cerebral infarction without residual deficits
CPT/HCPCS: 99213; G0463

== ENCOUNTER 2025-02-19 08:25 | Outpatient (RCR) | payer MEDICAID, SELFPAY | END 2025-03-17 23:59 | disposition home or self-care (01) | LOC: WC 08:25 | PROVIDERS: PCP Family Medicine; Referring Provider Physician Assistant; Visit Provider Surgery | DX: Z09 Encounter for follow-up examination after completed treatment for conditions other than malignant neoplasm (principal) ==

== ENCOUNTER 2025-03-19 11:23 | Outpatient (RCR) | payer MEDICAID, SELFPAY | END 2025-04-16 23:59 | disposition home or self-care (01) | LOC: WC 11:23 | PROVIDERS: PCP Family Medicine; Referring Provider Physician Assistant; Visit Provider Surgery | DX: Z09 Encounter for follow-up examination after completed treatment for conditions other than malignant neoplasm (principal) ==

== ENCOUNTER 2025-04-30 17:46 | Emergency (ER) | payer MEDICAID, SELFPAY ==
[2025-04-30] VITALS (9 sets, daily range): BP systolic 95–121; BP diastolic 57–75; PULSE 71–95; RESP 16–30; TEMP 36.2–36.8; O2SAT 91–96; BMI 44.4
--- NOTE | 2025-04-30 17:58 | EKG12_ITS ---
Test Reason : SOB Blood Pressure : */* mmHG Vent. Rate : 83 BPM Atrial Rate : 83 BPM P-R Int : 160 ms QRS Dur : 92 ms QT Int : 370 ms P-R-T Axes : 71 -7 50 degrees QTcB Int : 434 ms Normal sinus rhythm Normal ECG Confirmed by JOSEPH GUSTAFSON, CHEL ([id number]), publication editor FLORES BOUCHER ([id number]) on 05/01/2025 10:54:59 AM Referred By: EM Confirmed By: CHEL RUIZ MD
--- NOTE | 2025-04-30 18:00 | EDS_ITS ---
HPI History of Present Illness Chief Complaint: Chest Pain Informant: patient and EMS Narrative Narrative: Patient is a 65-year-old female with a history of COPD, asthma, and prior MIs, presenting to the ED with chest pain, dyspnea, and cough. - Reports chest pain, dyspnea, and cough for 2.5 weeks. - Chest pain began today, approximately 30 minutes before EMS arrival; described as lower left-sided pain, exacerbated by breathing. - Pain onset followed a severe coughing episode, which also induced nausea. - Denies known fevers or lower extremity swelling. - Evaluated at an urgent care clinic yesterday, diagnosed with pneumonia based on lung auscultation, and prescribed doxycycline. - Took doxycycline today, which induced nausea. - Has a history of multiple MIs and a prior pulmonary embolism; currently on aspirin 81 mg daily. - Diagnosed with both COPD and asthma; uses a nebulizer but reports limited use due to fdc restrictions. - Has a maintenance inhaler with a red top but lacks a rescue inhaler. - Reports increased wheezing and frequent coughing. - Currently residing in a homeless fdc. [facility] Medical History Urinary tract infection Overactive bladder Decubitus ulcer of buttock, stage 1 Encounter for smoking cessation counseling History of COPD History of echocardiogram Wears glasses Anxiety Depression Post-menopausal History of renal disease High cholesterol Back pain TIA (transient ischemic attack) Gastric reflux Smoker Shortness of breath on exertion History of pain when walking History of edema Cardiology follow-up encounter History of heart attack Chest pain History of left heart catheterization (LHC) (~12/30/20) CKD (chronic kidney disease) stage 3, GFR 30-59 ml/min Lung nodule COPD (chronic obstructive pulmonary disease) Paroxysmal atrial fibrillation Elevated liver enzymes Acute respiratory failure with hypoxia Stroke IBS (irritable bowel syndrome) Hyperlipidemia Heart disease Migraines Frequent headaches Gastrointestinal problem Diabetes History of back problems Asthma Arthritis Home Medications ?Medication ?Instructions ?Recorded ?Last Taken ?Type apixaban 5 mg tablet (Eliquis) 5 mg PO Q12 #60 tabs Unknown Rx quetiapine 100 mg tablet 200 mg (2 x 100 mg) PO BID # 120 11/07/24 Unknown Rx Held on 01/11/25. tabs Instructions: Hold while taking Levaquin only for tomorrow trazodone 100 mg tablet 200 mg (2 x 100 mg) PO QHS # 60 tabs 11/07/24 Unknown Rx Held on 01/11/25. Instructions: Hold while taking Levaquin tomorrow. lorazepam 0.5 mg tablet 0.5 mg PO Q12H PRN anxiety 0 11/14/24 Unknown History lovastatin 40 mg tablet 20 mg PO QHS 11/14/24 Unknow n History omeprazole 40 mg capsule,delayed 40 mg PO DAILY Unknown History release aspirin 81 mg capsule 81 mg PO DAILY 01/08/25 Unkn own History furosemide 20 mg tablet 20 mg PO BID 01/08/25 Unknow n History levofloxacin 500 mg tablet 500 mg PO DAILY 1 day #1 TA B 01/11/25 Unknown Rx mupirocin 2 % topical ointment 1 applic topical TID Unknown History nitrofurantoin 1 cap PO BID 01/29/25 Unknow n History monohydrate/macrocrystals 100 mg capsule quetiapine 200 mg tablet,extended PO 01/29/25 Unknown History release 24 hr spironolactone 25 mg tablet 25 mg PO DAILY 01/29/25 Un known History vibegron 75 mg tablet (Gemtesa) 75 mg PO DAILY 5 Unknown History citalopram 10 mg tablet 10 mg PO DAILY 01/31/25 Unkn own History ipratropium 0.5 mg-albuterol 3 mg 3 ml continuous nebu lization ONCE 01/31/25 Unknown Clinic (2.5 mg base)/3 mL nebulization shortness of breath #3 mL soln ipratropium 0.5 mg-albuterol 3 mg 3 ml inhalation Q20M PRN shortness 01/31/25 Unknown Rx (2.5 mg base)/3 mL nebulization of breath 1 month #90 mL soln nitroglycerin 0.4 mg sublingual 0.4 mg sublingual ELZA Y 01/31/25 Unknown History
--- NOTE | 2025-04-30 18:00 | ED.VIS.CHEST ---
HPI History of Present Illness Chief Complaint: Chest Pain Informant: patient and EMS Narrative Narrative: Patient is a 65-year-old female with a history of COPD, asthma, and prior MIs, presenting to the ED with chest pain, dyspnea, and cough. - Reports chest pain, dyspnea, and cough for 2.5 weeks. - Chest pain began today, approximately 30 minutes before EMS arrival; described as lower left-sided pain, exacerbated by breathing. - Pain onset followed a severe coughing episode, which also induced nausea. - Denies known fevers or lower extremity swelling. - Evaluated at an urgent care clinic yesterday, diagnosed with pneumonia based on lung auscultation, and prescribed doxycycline. - Took doxycycline today, which induced nausea. - Has a history of multiple MIs and a prior pulmonary embolism; currently on aspirin 81 mg daily. - Diagnosed with both COPD and asthma; uses a nebulizer but reports limited use due to jail restrictions. - Has a maintenance inhaler with a red top but lacks a rescue inhaler. - Reports increased wheezing and frequent coughing. - Currently residing in a homeless [facility]. [facility] Medical History Urinary tract infection Overactive bladder Decubitus ulcer of buttock, stage 1 Encounter for smoking cessation counseling History of COPD History of echocardiogram Wears glasses Anxiety Depression Post-menopausal History of renal disease High cholesterol Back pain TIA (transient ischemic attack) Gastric reflux Smoker Shortness of breath on exertion History of pain when walking History of edema Cardiology follow-up encounter History of heart attack Chest pain History of left heart catheterization (LHC) (~12/30/20) CKD (chronic kidney disease) stage 3, GFR 30-59 ml/min Lung nodule COPD (chronic obstructive pulmonary disease) Paroxysmal atrial fibrillation Elevated liver enzymes Acute respiratory failure with hypoxia Stroke IBS (irritable bowel syndrome) Hyperlipidemia Heart disease Migraines Frequent headaches Gastrointestinal problem Diabetes History of back problems Asthma Arthritis Home Medications ?Medication ?Instructions ?Recorded ?Last Taken ?Type apixaban 5 mg tablet (Eliquis) 5 mg PO Q12 #60 tabs 11/07/24 Unknown Rx quetiapine 100 mg tablet 200 mg (2 x 100 mg) PO BID #120 11/07/24 Unknown Rx Held on 01/11/25. tabs Instructions: Hold while taking Levaquin only for tomorrow trazodone 100 mg tablet 200 mg (2 x 100 mg) PO QHS #60 tabs 11/07/24 Unknown Rx Held on 01/11/25. Instructions: Hold while taking Levaquin tomorrow. lorazepam 0.5 mg tablet 0.5 mg PO Q12H PRN anxiety 11/14/24 Unknown History lovastatin 40 mg tablet 20 mg PO QHS 11/14/24 Unknown History omeprazole 40 mg capsule,delayed 40 mg PO DAILY 11/14/24 Unknown History release aspirin 81 mg capsule 81 mg PO DAILY 01/08/25 Unknown History furosemide 20 mg tablet 20 mg PO BID 01/08/25 Unknown History levofloxacin 500 mg tablet 500 mg PO DAILY 1 day #1 TAB 01/11/25 Unknown Rx mupirocin 2 % topical ointment 1 applic topical TID 01/29/25 Unknown History nitrofurantoin 1 cap PO BID 01/29/25 Unknown History monohydrate/macrocrystals 100 mg capsule quetiapine 200 mg tablet,extended PO 01/29/25 Unknown History release 24 hr spironolactone 25 mg tablet 25 mg PO DAILY 01/29/25 Unknown History vibegron 75 mg tablet (Gemtesa) 75 mg PO DAILY 01/29/25 Unknown History citalopram 10 mg tablet 10 mg PO DAILY 01/31/25 Unknown History ipratropium 0.5 mg-albuterol 3 mg 3 ml continuous nebulization ONCE 01/31/25 Unknown Clinic (2.5 mg base)/3 mL nebulization shortness of breath #3 mL soln ipratropium 0.5 mg-albuterol 3 mg 3 ml inhalation Q20M PRN shortness 01/31/25 Unknown Rx (2.5 mg base)/3 mL nebulization of breath 1 month #90 mL soln nitroglycerin 0.4 mg sublingual 0.4 mg sublingual DAILY 01/31/25 Unknown History tablet Gemtesa 75 mg tablet (vibegron) 75 mg PO QDAY #90 tabs 02/27/25 Unknown Rx methenamine hippurate 1 gram tablet 1 g PO BID #180 tabs 02/27/25 Unknown Rx albuterol sulfate 90 mcg/actuation 2 puff inhalation Q6H PRN 04/24/25 Unknown Rx aerosol inhaler shortness of breath or wheezing #8.5 grams albuterol sulfate 90 mcg/actuation 1 - 2 puff inhalation Q4H PRN PRN 04/30/25 Unknown Rx aerosol inhaler (Ventolin HFA) Wheezing ##1 prednisone 20 mg tablet 20 mg PO DAILY 7 days #7 tabs 04/30/25 Unknown Rx Allergy/AdvReac Type Severity Reaction Status Date / Time Penicillins Allergy Intermediate Hives Verified 04/30/25 17:47 carbamazepine (From Tegretol) AdvReac Intermediate Nausea Verified 04/30/25 17:47 benztropine AdvReac Unknown Verified 04/30/25 17:47 diazepam (From Valium) AdvReac Other Verified 04/30/25 17:47 Sulfa (Sulfonamide AdvReac Nausea Verified 04/30/25 17:47 Antibiotics) thioridazine AdvReac Nausea Verified 04/30/25 17:47 thioridazine HCl (From AdvReac Other Verified 04/30/25 17:47 Mellaril) Family History Grandmother Cancer stomach Father Cancer lung Sister Breast cancer Surgical History Hx of surgical procedure History of carpal tunnel surgery History of elbow surgery H/O shoulder surgery H/O hand surgery H/O dilation and curettage Hx of cholecystectomy History of tonsillectomy Social History (Updated 04/30/25 @ 18:[address] Ortiz Pinto MD) housing: homeless Smoking Status: Heavy Smoker (>10/day) alcohol intake: never substance use type: does not use caffeine: Yes what type of physical activity do you participate in: walking seatbelt use: always do you feel safe at home: Yes ROS ROS ED Constitutional Constitutional ED: Denies chills or fever(s) Eyes Eyes: Denies change in vision or diplopia ENT ENT ED: Denies rhinorrhea or sore throat Cardiovascular Cardiovascular: Reports as per HPI and chest pain; Denies leg edema or palpitations Respiratory/Chest Respiratory/Chest: Reports cough, dyspnea, dyspnea on exertion and wheezing Gastrointestinal Gastrointestinal: Reports nausea; Denies abdominal pain, diarrhea or vomiting Genitourinary Genitourinary ED: Denies dysuria or hematuria Musculoskeletal Musculoskeletal: Denies back pain or neck pain Integumentary Denies abscess or rash Neurologic Neurologic: Denies headache(s), paresthesias or weakness Psychiatric Psychiatric: Denies anxiety or suicidal thoughts EXAM Physical Exam Const Vital Signs: 04/30/25 17:48 04/30/25 17:49 04/30/25 17:51 Temperature 98.3 F Temperature Source Oral Pulse Rate 83 Respiratory Rate 18 Respiratory Effort Short of Breath Respiratory Pattern Blood Pressure 109/65 Blood Pressure Mean 79 Pulse Ox 91 95 Oxygen Delivery Method Room Air Nasal Cannula Oxygen Flow Rate (L/min) 2 04/30/25 18:06 04/30/25 18:07 04/30/25 18:16 Temperature Temperature Source Pulse Rate 81 84 Respiratory Rate 16 18 Respiratory Effort Respiratory Pattern Normal Blood Pressure 109/64 Blood Pressure Mean 79 Pulse Ox 96 Oxygen Delivery Method Nasal Cannula Nasal Cannula Oxygen Flow Rate (L/min) 2 04/30/25 18:44 04/30/25 19:14 04/30/25 20:00 Temperature 97.7 F L Temperature Source Oral Pulse Rate 89 84 71 Respiratory Rate 22 H 20 H 22 H Respiratory Effort Respiratory Pattern Blood Pressure 121/75 H 95/59 L 112/57 L Blood Pressure Mean 90 71 75 Pulse Ox 94 94 95 Oxygen Delivery Method Nasal Cannula Nasal Cannula Nasal Cannula Oxygen Flow Rate (L/min) 2 2 04/30/25 21:00 Temperature Temperature Source Pulse Rate 66 Respiratory Rate 12 Respiratory Effort Respiratory Pattern Blood Pressure 106/47 L Blood Pressure Mean 66 Pulse Ox 97 Oxygen Delivery Method Nasal Cannula Oxygen Flow Rate (L/min) Positive well nourished, well developed and obese General Appearance ED: well developed and NAD Nutritional Appearance: obese HEENT Reports moist mucous membranes normocephalic and atraumatic Eyes PERRL and EOMs intact bilaterally Neck full ROM, no lymphadenopathy, supple and no JVD Chest Wall Chest Narrative: Mild left lower rib cage/chest wall tenderness without crepitance or subcutaneous emphysema Resp normal respiratory effort Auscultation: wheezes expiratory wheezes and throughout (Without rales or rhonchi) Cardio regular rate, regular rhythm and no murmurs GI non-tender and non-distended Auscultation: normoactive bowel sounds Palpation: soft Back/Spine no CVA tenderness General Back: other FROM Extremity normal to inspection General Extremety ED: Negative for edema, pulses abnormal or tenderness General Extremity: Negative for edema or pulses abnormal Neuro oriented x3, CN's II-XII intact bilaterally and no sensory deficits noted Sensorium / Orientation: awake and alert Motor Exam: strength 5/5 throughout Psych Mood & Affect: anxious Skin no rashes or lesions noted and no wounds Heart Score History: Slightly/Non-Suspicious ECG: Normal Age: >45 - <65 years Risk Factors: 1 or 2 Risk Factors Troponin: </= Normal Limit Score: 2 MDM MDM MDM Narrative Medical decision making narrative: Assessment: The patient is a 65-year-old female with PMH of COPD, chronic renal insufficiency, and significant smoking history presenting for acute left lower anterior chest pain and shortness of breath. Prior studies reviewed today include a normal EF 65% echocardiogram from 09/12/2024 and a 12/30/2020 coronary angiogram without obstructive CAD, which places her at low risk for acute coronary syndrome. Initial troponin 18 with 2-hour delta 16 and a normal EKG further reduce concern for ACS, correlating with his low HEART score of 2. Clinical picture is most consistent with viral URI?triggered COPD exacerbation and resultant musculoskeletal chest wall strain from forceful coughing; pneumonia is unlikely as chest X-ray shows nonspecific basilar findings and on exam she has wheezing but otherwise clear lungs. Plan: - Administered nebulizer bronchodilator treatment in ED with symptomatic improvement - Gave empiric IV/PO steroids for COPD exacerbation - Administered ondansetron for doxycycline-related nausea - Continue current doxycycline course started yesterday - Prescribed oral prednisone on discharge - Reassured patient; discussed low cardiac risk and home management of COPD flare Diagnostics: - EKG interpreted: normal sinus rhythm, no ischemic changes. Independently interpreted by , Ortiz Pinto. - Labs: Troponin I 18 ng/L; 2-hour delta 16 ng/L. - Chest X-ray: clear lungs, no infiltrate or consolidation. - Prior echocardiogram 09/12/2024 reviewed: EF 65%, no wall-motion abnormalities, trivial MR. - Prior coronary angiogram 12/30/2020 reviewed: no obstructive coronary disease. Reevaluations: - Patient reports improved breathing and reduced chest pain after nebulizer and steroids; remains hemodynamically stable. History & Record Review Additional record(s) reviewed:: Prior outpatient record Lab Data Attestation: I reviewed the patient's lab results. Labs: Laboratory Results - last 24 hr 04/30/25 04/30/25 18:00 20:00 WBC 8.7 RBC 5.19 Hgb 15.9 H Hct 49.5 H MCV 95.4 MCH 30.6 MCHC 32.1 RDW Std Deviation 50.4 H RDW Coeff of Robert 14.4 Plt Count 275 MPV 10.3 Immature Gran % (Auto) 0.100 Neut % (Auto) 55.4 Lymph % (Auto) 31.2 Bacon % (Auto) 8.0 Eos % (Auto) 5.1 H Baso % (Auto) 0.2 Absolute Neuts (auto) 4.8 Absolute Lymphs (auto) 2.70 Nucleated RBC % 0 Sodium 140 Potassium 3.6 Chloride 100 Carbon Dioxide 26.2 Anion Gap 14 BUN 18 Creatinine 1.69 H Estim Creat Clear Calc 39.90 L Est GFR (MDRD) Non-Af 34 L BUN/Creatinine Ratio 10.6 Glucose 103 H Calcium 9.6 Troponin T High Sens 18 H D Troponin T Hi Sens 2 Hr 16 H Radiography Diagnostic Testing: Clinical Impression(s) from Imaging Studies Chest X-Ray 04/30/25 18:20 IMPRESSION: Small right pleural effusion/atelectasis. Underlying consolidation not excluded. Reading Location: [facility] Rhythm Strip Rhythm Strip: Sinus Rhythm Rate: 83 Ectopy: None EKG Initial EKG: Attestation: I personally reviewed and interpreted this EKG as follows: Interpretation: Sinus Rhythm and No Acute Injury Pattern Comments: Nml axis & intervals; nml EKG Discharge Plan Triage Chief Complaint: Chest Pain ED Provider: Ortiz Pinto Dx/Rx/DC Orders Clinical Impression: Acute exacerbation of chronic obstructive pulmonary disease (COPD), Viral upper respiratory infection, Strain of chest wall, CKD (chronic kidney disease) stage 3, GFR 30-59 ml/min, Anticoagulated on Eliquis Instructions: ED COPD Flare Prescriptions: New prednisone 20 mg tablet 20 mg PO DAILY 7 Days Qty: 7 0RF albuterol sulfate [Ventolin HFA] 90 mcg/actuation HFA aerosol inhaler 1 - 2 puff inhalation Q4H PRN PRN (Reason: Wheezing) Qty: 1 0RF No Action ipratropium-albuterol 0.5 mg-3 mg(2.5 mg base)/3 mL solution for nebulization 3 ml continuous nebulization ONCE Qty: 3 0RF nitroglycerin 0.4 mg tablet, sublingual 0.4 mg sublingual DAILY citalopram 10 mg tablet 10 mg PO DAILY ipratropium-albuterol 0.5 mg-3 mg(2.5 mg base)/3 mL solution for nebulization 3 ml inhalation Q20M PRN (Reason: shortness of breath) 30 Days Qty: 90 0RF Rx Instructions: for 3 doses methenamine hippurate 1 gram tablet 1 g PO BID Qty: 180 3RF Gemtesa 75 mg tablet 75 mg PO QDAY Qty: 90 3RF spironolactone 25 mg tablet 25 mg PO DAILY mupirocin 2 % ointment 1 applic topical TID nitrofurantoin monohyd/m-cryst 100 mg capsule 1 cap PO BID quetiapine 200 mg tablet extended release 24 hr PO Gemtesa 75 mg tablet 75 mg PO DAILY Eliquis 5 mg Tablet 5 mg PO Q12 Qty: 60 0RF quetiapine 100 mg Tablet 200 mg PO BID Qty: 120 0RF trazodone 100 mg Tablet 200 mg PO QHS Qty: 60 0RF lovastatin 40 mg tablet 20 mg PO QHS omeprazole 40 mg capsule,delayed release(DR/EC) 40 mg PO DAILY lorazepam 0.5 mg tablet 0.5 mg PO Q12H PRN (Reason: anxiety) aspirin 81 mg capsule 81 mg PO DAILY furosemide 20 mg tablet 20 mg PO BID levofloxacin 500 mg tablet 500 mg PO DAILY 1 Days Qty: 1 0RF albuterol sulfate 90 mcg/actuation HFA aerosol inhaler 2 puff inhalation Q6H PRN (Reason: shortness of breath or wheezing) Qty: 8.5 0RF Primary Care Provider: Homer Bradford Referrals: Homer Bradford MD [Primary Care Provider, Family Practice] - 1 Week if not improving Activity Restrictions/Additional Instructions: - Continue taking the full course of doxycycline exactly as prescribed, if able. - Start the prescribed prednisone tomorrow 05/01 to help reduce airway inflammation. - Use your nebulizer at home whenever you feel short of breath. Alternatively we prescribed you a rescue inhaler that you could also use if you are having trouble with access to your nebulizer. Print Language: Albanian Disposition Disposition: Home, Self Care
[2025-04-30 18:08] LABS: Hematocrit 49.5 % (37-47); Hemoglobin 15.9 g/dL (12.0-15.0); Immature Granulocytes Count 0.010 X10^3/uL (0.0-0.0); Mean Corp Hgb Conc 32.1 g/dL (32-36); Mean Corpuscular Volume 95.4 fL (81-99); Mean Platelet Vol. 10.3 fl (6.2-12.0); NRBC Flagged by Analyzer 0 % (0-5); Platelet Count 275 K/mm3 (150-450); RBC Distribution Width CV 14.4 % (11.6-14.6); RBC Distribution Width SD 50.4 fl (35.1-43.9); Red Blood Count 5.19 M/mm3 (4.2-5.4); White Blood Count 8.7 K/mm3 (4.4-11.0)
--- NOTE | 2025-04-30 18:20 | RAD_ITS ---
PROCEDURE: CHEST PA AND LATERAL 04/30/2025 REASON FOR EXAM: CP, SOB, COUGH, COPD TECHNIQUE: Procedure Code: RADCXR Modality: DX Procedure: CHEST PA AND LATERAL COMPARISON: 01/08/2025 FINDINGS: Lungs/Pleura: Small right pleural effusion/atelectasis. Underlying consolidation not excluded. No sizable pleural effusion on the left. No pneumothorax. Heart/Mediastinum: Within normal limits. Aortic arch calcification. Bones/Soft tissues: Mild degenerative changes of the spine. Right humeral head anchor screw. RAD/Chest PA and Lateral IMPRESSION: Small right pleural effusion/atelectasis. Underlying consolidation not exclude d. Reading Location: [id number]
[2025-04-30 18:31] LABS: Anion Gap 14 (5-15); BUN 18 mg/dL (4-19); BUN/Creat Ratio 10.6 RATIO (10-20); Calcium,Total 9.6 mg/dL (7.6-11.0); Carbon Dioxide 26.2 mmol/L (21.0-32.0); Chloride 100 mmol/L (98-108); Estimated Creatinine Clearance 39.90 ml/min (50-250); Glucose 103 mg/dL (70-99); Potassium 3.6 mmol/L (3.3-5.1); Troponin T High Sensitivity 18 ng/L (<=14)
[2025-04-30 20:40] LABS: Troponin T High Sens 2 HR 16 ng/L (<=14)
== END 2025-04-30 21:27 | disposition home or self-care (01) ==
PROVIDERS: Emergency Provider Emergency Medicine; PCP Family Medicine; Visit Provider Emergency Medicine
DX: J44.1 Chronic obstructive pulmonary disease with (acute) exacerbation (principal); I48.0 Paroxysmal atrial fibrillation; E11.22 Type 2 diabetes mellitus with diabetic chronic kidney disease; N18.30 Chronic kidney disease, stage 3 unspecified; E78.00 Pure hypercholesterolemia, unspecified; Z86.711 Personal history of pulmonary embolism; F17.200 Nicotine dependence, unspecified, uncomplicated; I25.2 Old myocardial infarction; Z86.73 Personal history of transient ischemic attack (TIA), and cerebral infarction without residual deficits; Z79.01 Long term (current) use of anticoagulants; F32.A Depression, unspecified; Z79.899 Other long term (current) drug therapy; F41.9 Anxiety disorder, unspecified; K21.9 Gastro-esophageal reflux disease without esophagitis; Z79.82 Long term (current) use of aspirin; Z90.49 Acquired absence of other specified parts of digestive tract; J06.9 Acute upper respiratory infection, unspecified; S29.019A Strain of muscle and tendon of unspecified wall of thorax, initial encounter
CPT/HCPCS: 71046; 80048; 84484; 85025; 87631; 93005; 94640; 96374; 99285; A4216

== ENCOUNTER 2025-05-24 13:59 | Inpatient (IN) | payer MEDICAID, SELFPAY ==
[2025-05-24] VITALS (16 sets, daily range): BP systolic 97–112; BP diastolic 56–74; PULSE 82–90; RESP 13–22; TEMP 36.6–36.9; O2SAT 86–98; BMI 43.5
--- NOTE | 2025-05-24 15:23 | RAD_ITS ---
PROCEDURE: CHEST PA AND LATERAL 05/24/2025 REASON FOR EXAM: COUGH TECHNIQUE: Procedure Code: RADCXR Modality: DX Procedure: CHEST PA AND LATERAL COMPARISON: 04/30/2025 FINDINGS: Small-moderate right pleural effusion with adjacent atelectasis, not substantially changed from prior exam. No focal consolidation or sizable pleural effusion on the left. No pneumothorax. Aortic silhouette appears normal in size. Aortic arch calcification. Degenerative changes of the spine. Right humeral head anchor screw. RAD/Chest PA and Lateral IMPRESSION: Small-moderate right pleural effusion/atelectasis, no significant interval kumar ge. Reading Location: [id number]
--- NOTE | 2025-05-24 15:23 | EKG12_ITS ---
Test Reason : COUGH Blood Pressure : */* mmHG Vent. Rate : 86 BPM Atrial Rate : 86 BPM P-R Int : 152 ms QRS Dur : 90 ms QT Int : 402 ms P-R-T Axes : 75 16 77 degrees QTcB Int : 481 ms Normal sinus rhythm QTcB >= 480 msec Abnormal ECG Confirmed by Kam Turk ([id number]), script editor JIGNA TERRAZAS ([id number]) on 05/29/2025 5:54:54 AM Referred By: Confirmed By: Kam Turk
--- NOTE | 2025-05-24 15:24 | EDS_ITS ---
HPI History of Present Illness Chief Complaint: Cough Informant: patient Onset/Context/Timing Onset: Weeks (3) Context: gradual Timing: Continuous Quality: Positive for Dyspnea on exertion and Wheezing Worsened by: - (Smoking) Relieved by: Rest Associated Symptoms cough and green sputum; Negative for rhinorrhea, post nasal drip, ear pain, fever, sore throat, chills, sweats, clear sputum, white sputum or yellow sputum Chest Pain: Positive for Dull and Aching Narrative Narrative: Patient presents with shortness of breath that has been getting worse over the past 3 weeks. Patient states she went to urgent care and was diagnosed with pneumonia. Patient was given an antibiotic at that time. Patient states she took 1 dose of this and then developed nausea and vomiting. Patient states she stopped taking the antibiotic. Patient came to the emergency department after that and was given a prescription for prednisone. Patient states this helped but she is now out of it. Patient admits to a cough with some green sputum. Patient denies any fevers or chills. Patient states her breathing is worse with any exertion. Patient states it is also worse with smoking. Patient states it is better with rest. Patient states she saw her primary care physician today and she was referred to the emergency department. [facility] Medical History CKD stage 3b, GFR 30-44 ml/min Urinary tract infection Overactive bladder Decubitus ulcer of buttock, stage 1 Encounter for smoking cessation counseling History of COPD History of echocardiogram Wears glasses Anxiety Depression Post-menopausal History of renal disease High cholesterol Back pain TIA (transient ischemic attack) Gastric reflux Smoker Shortness of breath on exertion History of pain when walking History of edema Cardiology follow-up encounter History of heart attack Chest pain History of left heart catheterization (LHC) (~12/30/20) CKD (chronic kidney disease) stage 3, GFR 30-59 ml/min Lung nodule COPD (chronic obstructive pulmonary disease) Paroxysmal atrial fibrillation Elevated liver enzymes Acute respiratory failure with hypoxia Stroke IBS (irritable bowel syndrome) Hyperlipidemia Heart disease Migraines Frequent headaches Gastrointestinal problem Diabetes History of back problems Asthma Arthritis Home Medications ?Medication ?Instructions ?Recorded ?Last Taken ?Type apixaban 5 mg tablet (Eliquis) 5 mg PO Q12 #60 tabs Unknown Rx quetiapine 100 mg tablet 200 mg (2 x 100 mg) PO BID # 120 11/07/24 Unknown Rx Held on 01/11/25. tabs Instructions: Hold while taking Levaquin only for tomorrow lorazepam 0.5 mg tablet 0.5 mg PO Q12H PRN anxiety 0 11/14/24 Unknown History lovastatin 40 mg tablet 20 mg PO QHS 11/14/24 Unknow n History omeprazole 40 mg capsule,delayed 40 mg PO DAILY Unknown History release aspirin 81 mg capsule 81 mg PO DAILY 01/08/25 Unkn own History furosemide 20 mg tablet 20 mg PO BID 01/08/25 Unknow n History mupirocin 2 % topical ointment 1 applic topical TID Unknown History nitrofurantoin 1 cap PO BID 01/29/25 Unknow n History monohydrate/macrocrystals 100 mg capsule quetiapine 200 mg tablet,extended PO 01/29/25 Unknown History release 24 hr spironolactone 25 mg tablet 25 mg PO DAILY 01/29/25 Un known History vibegron 75 mg tablet (Gemtesa) 75 mg PO DAILY 5 Unknown History citalopram 10 mg tablet 10 mg PO DAILY 01/31/25 Unkn own History ipratropium 0.5 mg-albuterol 3 mg 3 ml continuous nebu lization ONCE 01/31/25 Unknown Clinic (2.5 mg base)/3 mL nebulization shortness of breath #3 mL soln ipratropium 0.5 mg-albuterol 3 mg 3 ml inhalation Q20M PRN shortness 01/31/25 Unknown Rx (2.5 mg base)/3 mL nebulization of breath 1 month #90 mL soln nitroglycerin 0.4 mg sublingual 0.4 mg sublingual ELZA Y 01/31/25 Unknown History tablet Gemtesa 75 mg tablet (vibegron) 75 mg PO QDAY #90 tabs 02/27/25 Unknown Rx methenamine hippurate 1 gram tablet 1 g PO BID #180 ta bs 02/27/25 Unknown Rx albuterol sulfate 90 mcg/actuation 2 puff inhalation Q 6H PRN 04/24/25 Unknown Rx aerosol inhaler shortness of breath or wheez ing #8.5 grams albuterol sulfate 90 mcg/actuation 1 - 2 puff inhalati on Q4H PRN PRN 04/30/25 Unknown Rx aerosol inhaler (Ventolin HFA) Wheezing ##1 trazodone 100 mg tablet 100 mg PO QHS 05/24/25 Unkno wn History Held on 01/11/25. Instructions: Hold while taking Levaquin tomorrow. Allergy/AdvReac Type Severity Reaction Status Date / Time Penicillins Allergy Intermediate Hives Verified 05/24/25 14:05 carbamazepine (From Tegretol) AdvReac Intermediate Nausea Verified 05/24/25 14:05 benztropine AdvReac Unknown Verified 05/24/25 14:05 diazepam (From Valium) AdvReac Other Verified 05/24/25 14:05 Sulfa (Sulfonamide AdvReac Nausea Verified 05/24/25 14:05 Antibiotics) thioridazine AdvReac Nausea Verified 05/24/25 14:05 thioridazine HCl (From AdvReac Other Verified 05/24/25 14:05 M[place]) Family History Grandmother Cancer stomach Father Cancer lung Sister Breast cancer Surgical History Hx of surgical procedure History of carpal tunnel surgery History of elbow surgery H/O shoulder surgery H/O hand surgery H/O dilation and curettage Hx of cholecystectomy History of tonsillectomy Social History housing: homeless Smoking Status: Heavy Smoker (>10/day) alcohol intake: never substance use type: does not use caffeine: Yes what type of physical activity do you participate in: walking seatbelt use: always do you feel safe at home: Yes ROS ROS ED Constitutional Constitutional ED: Denies chills or fever(s) Eyes Eyes: Denies blurry vision or change in vision ENT ENT ED: Denies rhinorrhea or sore throat Cardiovascular Cardiovascular: Reports chest pain; Denies palpitations Respiratory/Chest Respiratory/Chest: Reports cough and dyspnea Gastrointestinal Gastrointestinal: Reports nausea; Denies vomiting Genitourinary Genitourinary ED: Denies dysuria or hematuria Musculoskeletal Musculoskeletal: Denies back pain or neck pain Integumentary Denies abscess or rash Neurologic Neurologic: Reports headache(s); Denies weakness Allergic/Immunologic Allergic/Immunologic ED: Denies mouth swelling or urticaria EXAM Physical Exam Const Vital Signs: 05/24/25 14:00 05/24/25 14:05 05/24/25 14:32 Temperature 98.5 F 98.2 F Temperature Source Oral Oral Pulse Rate 90 88 Respiratory Rate 18 18 Respiratory Effort Respiratory Depth Respiratory Pattern Blood Pressure 103/64 100/65 Blood Pressure Mean 77 76 Pulse Ox 86 92 94 Oxygen Delivery Method Room Air Nasal Cannula Nasal Cannula Oxygen Flow Rate (L/min) 2 2 05/24/25 14:35 05/24/25 14:38 05/24/25 15:05 Temperature 98 F Temperature Source Oral Pulse Rate 85 Respiratory Rate 20 H Respiratory Effort Normal Short of Breath Normal Short of Breath Respiratory Depth Normal Respiratory Pattern Normal Blood Pressure 111/58 L Blood Pressure Mean 75 Pulse Ox 94 Oxygen Delivery Method Nasal Cannula Nasal Cannula Oxygen Flow Rate (L/min) 2 2 05/24/25 15:34 05/24/25 16:00 05/24/25 17:10 Temperature 97.9 F Temperature Source Oral Pulse Rate 85 89 90 Respiratory Rate 22 H 21 H 17 Respiratory Effort Respiratory Depth Respiratory Pattern Tachypnea Blood Pressure 111/74 106/59 L Blood Pressure Mean 86 74 Pulse Ox 98 98 Oxygen Delivery Method Nasal Cannula Nasal Cannula Oxygen Flow Rate (L/min) 3 2 05/24/25 19:13 05/24/25 20:00 05/24/25 20:30 Temperature Temperature Source Pulse Rate 90 89 86 Respiratory Rate 18 16 13 Respiratory Effort Respiratory Depth Respiratory Pattern Blood Pressure 112/69 104/65 97/60 Blood Pressure Mean 83 78 72 Pulse Ox 96 96 96 Oxygen Delivery Method Nasal Cannula Nasal Cannula Oxygen Flow Rate (L/min) 2 2 05/24/25 21:00 Temperature Temperature Source Pulse Rate 82 Respiratory Rate 14 Respiratory Effort Respiratory Depth Respiratory Pattern Blood Pressure 99/61 Blood Pressure Mean 73 Pulse Ox 96 Oxygen Delivery Method Nasal Cannula Oxygen Flow Rate (L/min) 2 Positive well nourished and well developed General Appearance ED: well developed and NAD HEENT Reports dry mucous membranes atraumatic Mouth ED: Yes dry mucous membranes Mouth: dry mucous membranes Neck supple and no JVD Resp normal respiratory effort Auscultation: wheezes expiratory wheezes and throughout Cardio regular rate and regular rhythm GI non-tender and non-distended Palpation: soft Neuro oriented x3, CN's II-XII intact bilaterally and no sensory deficits noted [place] Coma Scale: document GCS findings Spontaneous Obeys Commands Oriented 15 Sensorium / Orientation: alert Speech: speech normal Motor Exam: strength 5/5 throughout Psych mental status grossly normal MDM MDM MDM Narrative Medical decision making narrative: Differential diagnosis includes pneumonia, bronchitis, pulmonary embolism, cardiac dysrhythmia, cardiac ischemia, congestive heart failure, viral upper res piratory infection, and anxiety. EKG will be obtained to assess for cardiac dysrhythmia and cardiac ischemia. Chest x-ray will be obtained to assess for pneumonia or bronchitis. COVID-19, influenza, RSV PCR will be obtained to assess for viral illness. CBC will be obtained to assess for leukocytosis and anemia. Basic metabolic profile will be obtained to assess for electrolyte abnormalities and renal function. Serum lactate will be obtained to assess for sepsis. BNP will be obtained to assess for congestive heart failure. D-dimer will be obtained to assess for pulmonary embolism. PT with INR and PTT will be obtained to assess for coagulopathy. High-sensitivity troponin will be obtained to assess for cardiac ischemia. 2-hour repeat high-sensitivity troponin will be obtained to assess for ongoing cardiac ischemia. Urinalysis will be obtained to assess for urinary tract infection and hematuria. History & Record Review Additional record(s) reviewed:: Prior outpatient record, Prior ED visit and Prior labs Lab Data Attestation: I reviewed the patient's lab results. Lab results narrative: CBC was reviewed. Hemoglobin was slightly elevated at 15.6. The remainder was essentially within normal limits. Basic metabolic profile was reviewed. Potassium was slightly low at 3.1. Creatinine was slightly elevated at 1.53. This is consistent with previous result. PT with INR and PTT were reviewed and were within normal limits. D-dimer was reviewed and was mildly elevated at 1.43. Serum lactate was reviewed and was normal at 1.1. Initial high- sensitivity troponin was reviewed and was 19. 2-hour repeat high-sensitivity troponin was reviewed and was 18. 4-hour repeat high-sensitivity troponin was reviewed and was 19. proBNP was reviewed and was normal at 86. Urinalysis was reviewed. There is no evidence of urinary tract infection or hematuria. COVID- 19 PCR was reviewed and was negative. Influenza PCR was reviewed and was negative for influenza A and influenza B. RSV PCR was reviewed and was negative. Labs: Laboratory Results - last 24 hr 05/24/25 05/24/25 05/24/25 14:33 15:43 17:02 WBC 7.5 RBC 4.98 Hgb 15.6 H Hct 46.2 MCV 92.8 MCH 31.3 MCHC 33.8 RDW Std Deviation 47.8 H RDW Coeff of Robert 14.0 Plt Count 238 MPV 11.3 Immature Gran % (Auto) 0.100 Neut % (Auto) 61.8 Lymph % (Auto) 25.8 [place] % (Auto) 9.1 Eos % (Auto) 2.7 Baso % (Auto) 0.5 Absolute Neuts (auto) 4.6 Absolute Lymphs (auto) 1.94 Nucleated RBC % 0 PT 13.6 INR 1.0 APTT 27.4 D-Dimer Quant (PE/DVT) 1.43 H* Sodium 141 Potassium 3.1 L Chloride 104 Carbon Dioxide 25.4 Anion Gap 12 BUN 16 Creatinine 1.53 H Estim Creat Clear Calc 43.53 L Est GFR (MDRD) Non-Af 38 L BUN/Creatinine Ratio 10.5 Glucose 104 H Lactic Acid 1.1 Calcium 9.1 Troponin T High Sens 19 H Troponin T Hi Sens 2 Hr Troponin T Hi Sens 4Hr NT pro BNP II 86 Urine Color Yellow Urine Clarity Clear Urine pH 6.0 Ur Specific [place] 1.015 Urine Protein 15 H Urine Glucose (UA) Normal Urine Ketones Negative Urine Occult Blood Negative Urine Nitrite Negative Urine Bilirubin Negative Urine Urobilinogen Normal Ur Leukocyte Esterase Negative Urine RBC 0 SEEN Urine WBC 0-5 SEEN Ur Squamous Epith Cells 0-5 SEEN Urine Bacteria 1+ Hyaline Casts 0-5 SEEN Urine Mucus 0 SEEN 05/24/25 05/24/25 17:09 19:05 WBC RBC Hgb Hct MCV MCH MCHC RDW Std Deviation RDW Coeff of Robert Plt Count MPV Immature Gran % (Auto) Neut % (Auto) Lymph % (Auto) [place] % (Auto) Eos % (Auto) Baso % (Auto) Absolute Neuts (auto) Absolute Lymphs (auto) Nucleated RBC % PT INR APTT D-Dimer Quant (PE/DVT) Sodium Potassium Chloride Carbon Dioxide Anion Gap BUN Creatinine Estim Creat Clear Calc Est GFR (MDRD) Non-Af BUN/Creatinine Ratio Glucose Lactic Acid Calcium Troponin T High Sens Troponin T Hi Sens 2 Hr 18 H Troponin T Hi Sens 4Hr 19 H NT pro BNP II Urine Color Urine Clarity Urine pH Ur Specific [place] Urine Protein Urine Glucose (UA) Urine Ketones Urine Occult Blood Urine Nitrite Urine Bilirubin Urine Urobilinogen Ur Leukocyte Esterase Urine RBC Urine WBC Ur Squamous Epith Cells Urine Bacteria Hyaline Casts Urine Mucus Radiography Diagnostic Testing: Clinical Impression(s) from Imaging Studies Chest X-Ray 05/24/25 15:23 IMPRESSION: Small-moderate right pleural effusion/atelectasis, no significant interval change. Reading Location: [facility] Chest CTA 05/24/25 17:15 IMPRESSION: 1. No evidence of pulmonary embolism. 2. Spiculated 1.6 x 1.3 cm right upper lobe pulmonary mass, likely previously biopsied. 3. Dilated main pulmonary artery compatible with pulmonary arterial hypertension. 4. Moderate right pleural effusion. Diffuse pulmonary vascular congestion. Reading Location: [facility] [place] and lateral chest x-ray was obtained. There are 2 views. On my independent interpretation, lung lloyd show a moderate right pleural effusion and atelectasis. There is normal cardiac silhouette. Bony thorax is normal. Radiologist also interpreted the x-ray and agrees. Because of the elevated D-dimer, CTA of the chest was obtained. There is no evidence of pulmonary embolism. There is a 1.6 x 1.3 cm spiculated right upper lobe mass that was previously biopsied. There is moderate right pleural effusion and diffuse pulmonary vascular congestion. EKG Initial EKG: Attestation: I personally reviewed and interpreted this EKG as follows: Interpretation: Sinus Rhythm (86) and No Acute Injury Pattern Comments: EKG was obtained. On my independent interpretation, it showed a normal sinus rhythm with a rate of 86. ND interval, QRS interval, and QTc intervals were all normal. [place] was normal. There are no acute ST or T wave changes. Prior EKG tracings: available for review Prior: Unchanged (04/30/2025) Treatment and Re-Evaluation :: Patient was given IV fluids. Patient was given a DuoNeb aerosol. Patient was feeling tired on reevaluation. Patient was given a dose of oral potassium. Patient was advised of her findings. Patient was given a dose of Lasix here for the pleural effusion. Case was discussed with the hospitalist. She will admit the patient to her service. Patient understood and was agreeable with plan. All questions were answered. Discharge Plan Dx/Rx/DC Orders Clinical Impression: Acute exacerbation of COPD with asthma, Pleural effusion on right, CKD (chronic kidney disease) stage 3, GFR 30-59 ml/min, Smoker Disposition Disposition: Acute Care [facility]
[2025-05-24] MEDS: 0.9% Normal Saline (1000mL) 1,000 ML 1000 ML IV (16:14)
[2025-05-24 16:16] LABS: Hematocrit 46.2 % (37-47); Hemoglobin 15.6 g/dL (12.0-15.0); Immature Granulocytes Count 0.010 X10^3/uL (0.0-0.0); Mean Corp Hgb Conc 33.8 g/dL (32-36); Mean Corpuscular Volume 92.8 fL (81-99); Mean Platelet Vol. 11.3 fl (6.2-12.0); NRBC Flagged by Analyzer 0 % (0-5); Platelet Count 238 K/mm3 (150-450); RBC Distribution Width CV 14.0 % (11.6-14.6); RBC Distribution Width SD 47.8 fl (35.1-43.9); Red Blood Count 4.98 M/mm3 (4.2-5.4); White Blood Count 7.5 K/mm3 (4.4-11.0)
[2025-05-24 16:44] LABS: Anion Gap 12 (5-15); BUN 16 mg/dL (4-19); BUN/Creat Ratio 10.5 RATIO (10-20); Calcium,Total 9.1 mg/dL (7.6-11.0); Carbon Dioxide 25.4 mmol/L (21.0-32.0); Chloride 104 mmol/L (98-108); D-Dimer Quantitative (DVT/PE) 1.43 FEU/ug/m (0.27-0.49); Estimated Creatinine Clearance 43.53 ml/min (50-250); Glucose 104 mg/dL (70-99); Potassium 3.1 mmol/L (3.3-5.1); Pro- Brain NATRIURETIC PEPTIDE 86 pg/mL (<=900)
[2025-05-24 16:49] LABS: Partial Thromboplast Time 27.4 Seconds (24.1-36.2); Prothrombin Time (Protime)PT. 13.6 SECONDS (11.7-14.9)
[2025-05-24 16:57] LABS: Troponin T High Sensitivity 19 ng/L (<=14)
[2025-05-24 17:07] LABS: Mucous, Urine 0 SEEN /hpf (<or=2+); Red Blood Cells-Urine 0 SEEN /hpf (0-5)
--- NOTE | 2025-05-24 17:15 | CT_ITS ---
PROCEDURE: CTA CHEST W/WO CONTRAST 05/24/2025 REASON FOR EXAM: ELEVATED D-DIMER TECHNIQUE: Procedure Code: [id number] Modality: CT Procedure: CTA CHEST W/WO CONTRAST Multiplanar Sagittal and Coronal images were obtained. CONTRAST: 100 cc of Isovue 370 One or more dose reduction techniques were used (e.g., Automated exposure control, adjustment of the mA and/or kV according to patient size, use of iterative reconstruction technique). COMPARISON: Chest x-ray 05/24/2025 FINDINGS: Hardware: None. Lymph nodes: No enlarged mediastinal, hilar, or axillary lymph nodes. Heart: Nonenlarged. No pericardial effusion. RV/LV Diameter Ratio: Thoracic Aorta: No thoracic aortic aneurysm or dissection. Pulmonary Vessels: No evidence of acute pulmonary emboli through the major subsegmental branches. Dilated main pulmonary artery measuring 3.5 cm, findings suggest pulmonary arterial hypertension. Most Proximal Level of Embolus (if embolus present): Lungs and Airways: Mild pulmonary vascular congestion. Right upper lobe spiculated pulmonary mass measuring 1.6 x 1.3 cm. No other pulmonary nodules identified. Airways are patent. Pleura: Moderate right pleural effusion. No pneumothorax. Upper Abdomen: Visualized portions of the upper abdominal viscera are unremarkable. Bones: Moderate degenerate changes and kyphosis of the visualized spine. No destructive osseous lesions. No acute fractures. CT/CTA Chest W/WO Contrast IMPRESSION: 1. No evidence of pulmonary embolism. 2. Spiculated 1.6 x 1.3 cm right upper lobe pulmonary mass, likely previously b iopsied. 3. Dilated main pulmonary artery compatible with pulmonary arterial hypertensio n. 4. Moderate right pleural effusion. Diffuse pulmonary vascular congestion. Reading Location: [facility]
[2025-05-24 17:17] LABS: Color, Urine Yellow (Yellow); Glucose, Dipstick Normal (Normal); Ketone-Dipstick Negative (Negative); Leukocyte Esterase-Dipstick Negative /ul (Negative); Nitrite-Dipstick Negative (Negative); Occult Blood-Urine Negative /ul (Negative); Protein-Dipstick 15 mg/dl (Negative); Specific Gravity, Urine 1.015 (1.002-1.030); Urine Bilirubin Dipstick Negative (Negative)
[2025-05-24 17:40] LABS: Troponin T High Sens 2 HR 18 ng/L (<=14)
[2025-05-24] MEDS: Potassium Chloride Oral Tablet 20 MEQ 40 MEQ PO (17:53)
[2025-05-24 19:11] LABS: Squamous Epithelial Cells - UA 0-5 SEEN /hpf (5-10)
[2025-05-24 19:30] LABS: Troponin T High Sens 4 HR 19 ng/L (<=14)
--- NOTE | 2025-05-24 22:00 | HP.PCM.HOS_ITS ---
HPI - General General Date of Admission: 05/24/25 Date of Service: 05/24/25 Chief Complaint: Shortness of breath/cough HPI Narrative PERNELL FISHER, is a 65 F who presented to the emergency department at [facility] on 05/24/2025 with chief complaint of shortness of breath and wheezing. The patient has a history of COPD and follows with Dr. Dallin Christopher's office. She is not oxygen dependent at baseline. She states for about 2 to 3 weeks now she has had worsening shortness of breath and wheezing. She was seen by an urgent care several days ago and placed on antibiotic. She states she took 1 dose of antibiotic and had nausea vomiting so she stopped taking it. I reviewed her external med fill history and it appears it was doxycycline. She was also given a prednisone taper and completed that. She stated that while she was on the prednisone her symptoms improved but she is out and her symptoms got worse again. She states now she has a cough productive of greenish sputum. She states at baseline she has a chronic cough that is not productive of sputum. She has had no fever or chills. She does have worsening symptoms with exertion. She is currently smoking about 8 cigarettes daily. She saw her primary care physician today and they referred her to the emergency department. Vital signs on presentation showed temperature of 98.5, heart rate 90, respiratory was 18, blood pressure was 103/64 and pulse ox was 86% on room air. She was placed on 2 L nasal cannula with improvement in her oxygen saturation 92%. CBC shows a chronic erythrocytosis with a hemoglobin of 15.6 but is otherwise unremarkable. She does not have a white count or left shift. Coags were normal but D-dimer was elevated at 1.43. Chemistry panel showed hypokalemia but was otherwise unremarkable having stable CKD stage III and a creatinine of 1.53. Lactic acid was normal at 1.1. Initial troponin was 19 with a delta of 18 and a 4-hour troponin of 19. This is consistent with her previous troponins from earlier this month and earlier this year. proBNP was 86. Urine is not consistent with infection. She does appear to have chronic bacteriuria. Given her D-dimer elevation a CT of the chest was performed and showed a moderate right pleural effusion with a spiculated mass in the right upper lobe and on upon review this has been previously biopsied and being followed by pulmonary medicine. COVID/flu/RSV was negative. In the emergency department she was given potassium for hypokalemia, aerosol, and a dose of Lasix given her large right pleural effusion. [facility] Medical History CKD stage 3b, GFR 30-44 ml/min Urinary tract infection Overactive bladder Decubitus ulcer of buttock, stage 1 Encounter for smoking cessation counseling History of COPD History of echocardiogram Wears glasses Anxiety Depression Post-menopausal History of renal disease High cholesterol Back pain TIA (transient ischemic attack) Gastric reflux Smoker Shortness of breath on exertion History of pain when walking History of edema Cardiology follow-up encounter History of heart attack Chest pain History of left heart catheterization (LHC) (~12/30/20) CKD (chronic kidney disease) stage 3, GFR 30-59 ml/min Lung nodule COPD (chronic obstructive pulmonary disease) Paroxysmal atrial fibrillation Elevated liver enzymes Acute respiratory failure with hypoxia Stroke IBS (irritable bowel syndrome) Hyperlipidemia Heart disease Migraines Frequent headaches Gastrointestinal problem Diabetes History of back problems Asthma Arthritis Home Medications ?Medication ?Instructions ?Recorded ?Last Taken ?Type apixaban 5 mg tablet (Eliquis) 5 mg PO Q12 #60 tabs Unknown Rx quetiapine 100 mg tablet 200 mg (2 x 100 mg) PO BID # 120 11/07/24 Unknown Rx Held on 01/11/25. tabs Instructions: Hold while taking Levaquin only for tomorrow lorazepam 0.5 mg tablet 0.5 mg PO Q12H PRN anxiety 0 11/14/24 Unknown History lovastatin 40 mg tablet 20 mg PO QHS 11/14/24 Unknow n History omeprazole 40 mg capsule,delayed 40 mg PO DAILY Unknown History release aspirin 81 mg capsule 81 mg PO DAILY 01/08/25 Unkn own History furosemide 20 mg tablet 20 mg PO BID 01/08/25 Unknow n History mupirocin 2 % topical ointment 1 applic topical TID Unknown History nitrofurantoin 1 cap PO BID 01/29/25 Unknow n History monohydrate/macrocrystals 100 mg capsule quetiapine 200 mg tablet,extended PO 01/29/25 Unknown History release 24 hr spironolactone 25 mg tablet 25 mg PO DAILY 01/29/25 Un known History vibegron 75 mg tablet (Gemtesa) 75 mg PO DAILY 5 Unknown History citalopram 10 mg tablet 10 mg PO DAILY 01/31/25 Unkn own History ipratropium 0.5 mg-albuterol 3 mg 3 ml continuous nebu lization ONCE 01/31/25 Unknown Clinic (2.5 mg base)/3 mL nebulization shortness of breath #3 mL soln ipratropium 0.5 mg-albuterol 3 mg 3 ml inhalation Q20M PRN shortness 01/31/25 Unknown Rx (2.5 mg base)/3 mL nebulization of breath 1 month #90 mL soln nitroglycerin 0.4 mg sublingual 0.4 mg sublingual ELZA Y 01/31/25 Unknown History tablet Gemtesa 75 mg tablet (vibegron) 75 mg PO QDAY #90 tabs 02/27/25 Unknown Rx methenamine hippurate 1 gram tablet 1 g PO BID #180 ta bs 02/27/25 Unknown Rx albuterol sulfate 90 mcg/actuation 2 puff inhalation Q 6H PRN 04/24/25 Unknown Rx aerosol inhaler shortness of breath or wheez ing #8.5 grams albuterol sulfate 90 mcg/actuation 1 - 2 puff inhalati on Q4H PRN PRN 04/30/25 Unknown Rx aerosol inhaler (Ventolin HFA) Wheezing ##1 trazodone 100 mg tablet 100 mg PO QHS 05/24/25 Unkno wn History Held on 01/11/25. Instructions: Hold while taking Levaquin tomorrow. Allergy/AdvReac Type Severity Reaction Status Date / Time Penicillins Allergy Intermediate Hives Verified 05/24/25 14:05 carbamazepine (From Tegretol) AdvReac Intermediate Nausea Verified 05/24/25 14:05 benztropine AdvReac Unknown Verified 05/24/25 14:05 diazepam (From Valium) AdvReac Other Verified 05/24/25 14:05 Sulfa (Sulfonamide AdvReac Nausea Verified 05/24/25 14:05 Antibiotics) thioridazine AdvReac Nausea Verified 05/24/25 14:05 thioridazine HCl (From AdvReac Other Verified 05/24/25 14:05 Mellaril) Family History Grandmother Cancer stomach Father Cancer lung Sister Breast cancer Surgical History Hx of surgical procedure History of carpal tunnel surgery History of elbow surgery H/O shoulder surgery H/O hand surgery H/O dilation and curettage Hx of cholecystectomy History of tonsillectomy Social History housing: homeless Smoking Status: Heavy Smoker (>10/day) alcohol intake: never substance use type: does not use caffeine: Yes what type of physical activity do you participate in: walking seatbelt use: always do you feel safe at home: Yes ROS Constitutional Constitutional: Reports fatigue, malaise and weakness; Denies anorexia, change in weight, chills, fever(s), night sweats or other Eyes Eyes: Denies blurry vision, change in eye color, change in vision, discharge from eye(s), double vision, erythema, eye pain, loss of vision or other ENT HEENT: Denies abnormal hearing, dysphagia, ear pain, epistaxis, headache(s), hearing loss, nasal congestion, nasal discharge, post nasal drip, sinus pressure, sore throat or other Cardiovascular Cardiovascular: Reports chest pain and dyspnea on exertion; Denies claudication, edema, lightheadedness, orthopnea, palpitations, paroxysmal nocturnal dyspnea, rapid heart rate, syncope or other Respiratory/Chest Respiratory/Chest: Reports cough, dyspnea, excessive phlegm production, productive cough, shortness of breath at rest, shortness of breath with exertion and wheezing; Denies hemoptysis or other Gastrointestinal Gastrointestinal: Denies abdominal pain, coffee ground emesis, constipation, diarrhea, dyspepsia, hematemesis, hematochezia, loose stools, melena, nausea, vomiting or other Genitourinary Genitourinary: Reports urinary frequency and urinary incontinence; Denies burning urination, difficulty urinating, dysuria, hematuria, nocturia, urinary hesitancy, urinary urgency or other Musculoskeletal Musculoskeletal: Reports joint pain and joint stiffness; Denies arthralgias, back pain, joint swelling, myalgias, neck pain or other Neurologic Neurologic: Denies abnormal gait, abnormal speech, confusion, disequilibrium, dizziness, focal weakness, headache(s), numbness, paresthesias, seizure-like activity, seizures, syncope, tingling, tremor(s) or other Psychiatric Psychiatric: Reports anxiety and depression; Denies homicidal ideation, suicidal ideation or other Endocrine Endocrinology: Denies change in body appearance, cold intolerance, excessive sweating, heat intolerance, polydipsia, polyuria or other Hematologic/Lymphatic Hematologic/Lymphatic: Denies anemia, easy bleeding, easy bruising, lymphadenopathy or other Allergic/Immunologic Allergic/Immunologic: Denies rhinitis, hives, eczemia, asthma or other Vital Signs Vital Signs Vital Signs: 05/24/25 14:00 05/24/25 14:05 05/24/25 14:32 Temperature 98.5 F 98.2 F Temperature Source Oral Oral Pulse Rate 90 88 Respiratory Rate 18 18 Respiratory Effort Respiratory Depth Respiratory Pattern Blood Pressure 103/64 100/65 Blood Pressure Mean 77 76 Pulse Ox 86 92 94 Oxygen Delivery Method Room Air Nasal Cannula Nasal Cannula Oxygen Flow Rate (L/min) 2 2 05/24/25 14:35 05/24/25 14:38 05/24/25 15:05 Temperature 98 F Temperature Source Oral Pulse Rate 85 Respiratory Rate 20 H Respiratory Effort Normal Short of Breath Normal Short of Breath Respiratory Depth Normal Respiratory Pattern Normal Blood Pressure 111/58 L Blood Pressure Mean 75 Pulse Ox 94 Oxygen Delivery Method Nasal Cannula Nasal Cannula Oxygen Flow Rate (L/min) 2 2 05/24/25 15:34 05/24/25 16:00 05/24/25 17:10 Temperature 97.9 F Temperature Source Oral Pulse Rate 85 89 90 Respiratory Rate 22 H 21 H 17 Respiratory Effort Respiratory Depth Respiratory Pattern Tachypnea Blood Pressure 111/74 106/59 L Blood Pressure Mean 86 74 Pulse Ox 98 98 Oxygen Delivery Method Nasal Cannula Nasal Cannula Oxygen Flow Rate (L/min) 3 2 05/24/25 19:13 05/24/25 20:00 05/24/25 20:30 Temperature Temperature Source Pulse Rate 90 89 86 Respiratory Rate 18 16 13 Respiratory Effort Respiratory Depth Respiratory Pattern Blood Pressure 112/69 104/65 97/60 Blood Pressure Mean 83 78 72 Pulse Ox 96 96 96 Oxygen Delivery Method Nasal Cannula Nasal Cannula Oxygen Flow Rate (L/min) 2 2 05/24/25 21:00 05/24/25 21:45 Temperature Temperature Source Pulse Rate 82 82 Respiratory Rate 14 15 Respiratory Effort Respiratory Depth Respiratory Pattern Blood Pressure 99/61 109/65 Blood Pressure Mean 73 79 Pulse Ox 96 96 Oxygen Delivery Method Nasal Cannula Nasal Cannula Oxygen Flow Rate (L/min) 2 2 Weight Weight: 108 kg Body Mass Index (BMI) 43.5 Physical Exam Const alert, oriented x3 and well nourished; Negative for average body habitus or healthy appearing Constitutional Narrative: Morbidly obese, upper middle-aged, white female, appears older than stated age, sitting up in bed on 2 L nasal cannula watching television, appears comfortable at rest, does have conversational dyspnea General Appearance: cooperative HEENT normocephalic, head/scalp atraumatic, hearing grossly normal bilaterally and moist oral mucous membranes HEENT Narrative: Edentulous, Mallampati is 3-4, no thrush Eyes EOMs intact bilaterally and conjunctivae normal Eyes Narrative: No scleral icterus Neck supple Neck Narrative: Neck is short and thick, trachea midline Resp No normal respiratory effort, no retractions, no use of accessory muscles and No clear to auscultation bilaterally Resp Narrative: Diffuse scattered and expiratory wheezes, conversational dyspnea, no signs of extremis, currently stable on 2 L nasal cannula, diminished in the right base Auscultation: wheezes; Negative for rales or rhonchi Cardio regular rate, regular rhythm, S1 normal heart sound, S2 normal heart sound, no murmurs, no rub, no gallops and no clicks GI normal to inspection, nondistended, normoactive bowel sounds, soft to palpation and non-tender GI Narrative: Protuberant abdomen Extremity no clubbing, cyanosis or edema Extremity Narrative: 2+ pedal and radial pulses Neuro oriented x3, moves all extremities and no focal motor deficits Speech: speech normal Psych affect normal Psych Narrative: Eye contact is good and patient interacts appropriately Results Lab / Micro Data 05/24/25 14:33 05/24/25 14:33 Labs: Laboratory Results - last 24 hr 05/24/25 14:33: WBC 7.5, RBC 4.98, Hgb 15.6 H, Hct 46.2, MCV 92.8, MCH 31.3, MCHC 33.8, RDW Std Deviation 47.8 H, RDW Coeff of Robert 14.0, Plt Count 238, MPV 11.3, Immature Gran % (Auto) 0.100, Neut % (Auto) 61.8, Lymph % (Auto) 25.8, Rincon % (Auto) 9.1, Eos % (Auto) 2.7, Baso % (Auto) 0.5, Absolute Neuts (auto) 4.6, Absolute Lymphs (auto) 1.94, Nucleated RBC % 0, PT 13.6, INR 1.0, APTT 27.4, D-Dimer Quant (PE/DVT) 1.43 H*, Sodium 141, Potassium 3.1 L, Chloride 104, Carbon Dioxide 25.4, Anion Gap 12, BUN 16, Creatinine 1.53 H, Estim Creat Clear Calc 43.53 L, Est GFR (MDRD) Non-Af 38 L, BUN/Creatinine Ratio 10.5, Glucose 104 H, Calcium 9.1, Troponin T High Sens 19 H, NT pro BNP II 86 05/24/25 15:43: Lactic Acid 1.1 05/24/25 17:02: Urine Color Yellow, Urine Clarity Clear, Urine pH 6.0, Ur Specific Bonham 1.015, Urine Protein 15 H, Urine Glucose (UA) Normal, Urine Ketones Negative, Urine Occult Blood Negative, Urine Nitrite Negative, Urine Bilirubin Negative, Urine Urobilinogen Normal, Ur Leukocyte Esterase Negative, Urine RBC 0 SEEN, Urine WBC 0-5 SEEN, Ur Squamous Epith Cells 0-5 SEEN, Urine Bacteria 1+, Hyaline Casts 0-5 SEEN, Urine Mucus 0 SEEN 05/24/25 17:09: Troponin T Hi Sens 2 Hr 18 H 05/24/25 19:05: Troponin T Hi Sens 4Hr 19 H Micro: Microbiology 05/24/25 15:56 Mucosa - Nose SARS-CoV-2, Influenza & RSV (PCR) - Final Imaging Radiology Impression Chest X-Ray 05/24/25 15:23 IMPRESSION: Small-moderate right pleural effusion/atelectasis, no significant interval change. Reading Location: [facility] Chest CTA 05/24/25 17:15 IMPRESSION: 1. No evidence of pulmonary embolism. 2. Spiculated 1.6 x 1.3 cm right upper lobe pulmonary mass, likely previously biopsied. 3. Dilated main pulmonary artery compatible with pulmonary arterial hypertension. 4. Moderate right pleural effusion. Diffuse pulmonary vascular congestion. Reading Location: [facility] Assessment & Plan Assessment/Plan (1) Pleural effusion, right: (2) Acute exacerbation of COPD with asthma: (3) Hypoxia: (4) Erythrocytosis: (5) Elevated d-dimer: (6) Elevated troponin: PLAN: Plan Acute hypoxia secondary to acute exacerbation of COPD - Patient does have some conversational dyspnea on exam and marked wheeze diffusely - Patient with change in volume and color of sputum so we will go ahead and place on antibiotics with Levaquin - Aggressive pulmonary toilet with scheduled and as needed nebulizers - Solu-Medrol 40 every 8 - Check sputum culture - COVID/flu/RSV were negative - Will defer strep pneumo and Legionella antigens at this time as I think the likelihood of them being positive is extremely low given presentation and imaging - Check respiratory viral panel - CT does not show infiltrate however she does have a large right pleural effusion which could be masking infiltrate and could potentially be consistent with parapneumonic effusion - she does not have fever or leukocytosis so pneumonia is overall well on my differential - Mucinex 1200 twice daily - Cough syrup is available - Would recommend close outpatient follow-up with pulmonary medicine after discharge-patient does follow with Dr. Christopher's office here at [place] Moderate right pleural effusion - Could be parapneumonic with sputum changes - Levaquin as noted above - Thoracentesis ordered and will likely be done on Tuesday - Cultures and fluid studies were ordered for analysis Hypokalemia - P.o. potassium given - Recheck a.m. - Check a.m. magnesium level Elevated D-dimer - Patient on Eliquis at baseline so likelihood of PE was low - CTA was negative as well - Suspect overall it is related to decreased clearance because of CKD Troponin elevation - Appears patient has chronically elevated troponin in the setting of CKD - Currently within her baseline range - Had echocardiogram done previously without any wall motion or maladies and EF was normal - No further workup at this time Erythrocytosis - Suspect related to ongoing tobacco abuse - May benefit from room air ABG in the outpatient setting and pulse oximetry assessment as chronic oxygen may be beneficial Lung nodule - Right upper lobe noted on CT - Appears previous biopsy has been done - Continue outpatient follow-up with pulmonary medicine History of homelessness - Case management/social work consultation for assistance with discharge planning History of atrial flutter - Currently sinus rhythm - Continue anticoagulation History of recurrent UTIs/overactive bladder/urge incontinence - Plan continue home Gemtesa - No current signs or symptoms of urinary tract infection CKD stage IIIb - Serum creatinine is at baseline - Baseline appears to be between 1.4 and 1.6 - Can continue to monitor GERD - Continue home PPI History of TIA - No deficits - Continue aspirin and Eliquis Essential hypertension/hyperlipidemia - Continue scheduled Lasix - Continue home lovastatin Depression/anxiety - Continue home Seroquel - Continue home lorazepam - Continue home Celexa Morbid obesity - BMI is 43.5 - Recommend weight loss - Complicates treatment, prognosis, outcomes Tobacco abuse - Patient has ongoing tobacco abuse and currently states she is smoking about 8 cigarettes daily - Declines need for nicotine replacement therapy on admission DVT prophylaxis - Continue home Eliquis CODE STATUS - Full code as per discussion with patient prior to admission Charges/Coding Visit Charges Inpatient E&M: 51958 Init Hosp L3
--- OUTSIDE RECORDS SUMMARY | 2025-05-24 22:57 | XMS RPT_ITS | CCD ---
Author Organization [place] [facility] Care Team Providers Care Bottom Man Name Role Phone Dorothy Fletcher MD Unavailable [phone] Homer Bradford MD Primary Care Provider Dr. Homer Bradford Primary Care Provider Dr. Issa Chapin Emergency Provider Dr. Lauren Vela Admit Provider Dr. Lauren Vela Attending Provider Dr. Lauren Vela Other Provider Dr. Dallin Christopher Other Provider Dr. Lauren Vela Referring Provider Dr. Dallin Christopher Attending Provider Dr. Shani Pelaez Other Provider Dr. Shani Pelaez Attending Provider Dr. Qi Roy Attending Provider Dr. Perez Cortez Attending Provider Dr. Shani Pelaez Referring Provider Dr. Guevara Collins Other Provider Dr. Shahram Sarmiento Attending Provider Dr. Guevara Collins Attending Provider Dr. Peter Herbert Attending Provider Dr. Peter Herbert Other Provider Dr. Homer Bradford Referring Provider Eliel DILL, CATEGORY DEVELOPMENT MANAGER-C Taylor Attending Provider HOMER BRADFORD MD Primary Care Physician Dr. Homer Bradford Primary Care Provider Dr. Dallin Christopher Attending Provider Dr. Dallin Christopher Referring Provider Dr. Dallin Christopher Other Provider Dr. Shahram Sarmiento Attending Provider Dr. Homer Bradford Referring Provider Eliel DILL, CATEGORY DEVELOPMENT MANAGER-C Taylor Attending Provider Homer Bradford MD Primary Care Provider Homer Bradford MD Primary Care Provider Dr. Homer Bradford Primary Care Provider Dr. Homer Bradford Referring Provider Eliel DILL, CATEGORY DEVELOPMENT MANAGER-C Taylor Attending Provider Homer Bradford MD Primary Care Provider Homer Bradford MD Primary Care Provider Kiah MEJIA.WAFFLE MACHINE OPERATOR, Mone Unavailable Meagan Yusuf PA-C Unavailable Broderick Minor Primary Care Provider [phone] Dr. Homer Bradford MD Primary Care Provider Randy Cabrales MD Emergency Provider Dr. Wilfredo Denton DO Admit Provider Dr. Wilfredo Denton DO Other Provider Jonathan Butcher MD Other Provider Unavailable Ronak GUSTAFSON, Dr. Peterson Other Provider Leyda Celis MD Other Provider Unavailable Dr. Hodan Chapa DO Other Provider Dr. Leah Hartman MD Other Provider Marilou GUSTAFSON, Dr. Alves Other Provider Isreal GUSTAFSON, Dr. Weems Other Provider Alba GUSTAFSON, Dr. England Other Provider [phone] Sree GUSTAFSON, Dr. Granger Other Provider Ruy GUSTAFSON, Dr. Galvin Other Provider Jori GUSTAFSON, Chioma Other Provider Connor GUSTAFSON, Dr. Noyola Other Provider Reynaldo GUSTAFSON, Dr. Sandoval Other Provider Aga GUSTAFSON, Dr. Barber Other Provider Raquel GUSTAFSON, Dr. Jovanny Herndon Other Provider Paramjit GUSTAFSON, Dr. Marie Other Provider Prince GUSTAFSON, Dr. Krishnan Other Provider Zen GUSTAFSON, Dr. Patten Other Provider Edmond GUSTAFSON, Dr. Tanner Other Provider Unavailable Teto GUSTAFSON, Martha Other Provider Unavailable Robert GUSTAFSON, Dr. Lara Attending Provider Unavai kay Collins MD, Dr. Guevara Mcgill Other Provider Dr. Wilfredo Denton DO Attending Provider Dr. Genoveva Garcia MD Attending Provider Dr. Guevara Collins MD Attending Provider Robert GUSTAFSON, Dr. Lara Other Provider Unavailab Broderick Ruiz Primary Care Provider Sanchez GUSTAFSON, Dr. Coronel Primary Care Provider Randy Cabrales MD Emergency Provider Dr. Wilfredo Denton DO Admit Provider Dr. Wilfredo Denton DO Other Provider Hadley GUSTAFSON, Jonathan Other Provider Unavailable Ronak GUSTAFSON, Dr. Peterson Other Provider Vimal GUSTAFSON, Leyda Other Provider Unavailable Dr. Hodan Chapa DO Other Provider Minnie GUSTAFSON, Dr. Lynn Other Provider [phone] Marilou GUSTAFSON, Dr. Alves Other Provider Isreal GUSTAFSON, Dr. Weems Other Provider Alba GUSTAFSON, Dr. England Other Provider [phone] Sree GUSTAFSON, Dr. Granger Other Provider Ruy GUSTAFSON, Dr. Galvin Other Provider Jori GUSTAFSON, Chioma Other Provider Connor GUSTAFSON, Dr. Noyola Other Provider Reynaldo GUSTAFSON, Dr. Sandoval Other Provider Aga GUSTAFSON, Dr. Barber Other Provider Raquel GUSTAFSON, Dr. Jovanny Herndon Other Provider Paramjit GUSTAFSON, Dr. Marie Other Provider Prince GUSTAFSON, Dr. Krishnan Other Provider Zen GUSTAFSON, Dr. Patten Other Provider Edmond GUSTAFSON, Dr. Tanner Other Provider Unavailable Teto GUSTAFSON, Martha Other Provider Unavailable Dr. Marco Jones MD Attending Provider Freida Collins MD, Dr. Guevara Mcgill Other Provider Dr. Wilfredo Denton DO Attending Provider Radha GUSTAFSON, Dr. Tomas Attending Provider Karina GUSTAFSON, Dr. Guevara Mcgill Attending Provider Robert GUSTAFSON, Dr. Lara Other Provider Unavailab Dr. Issa Engel MD Emergency Provider Dane GUSTAFSON, Dr. Lauren L Attending Provider Dane GUSTAFSON, Dr. Lauren Barajas Admit Provider Sanchez GUSTAFSON, Homer Trujillo Primary Care Provider [phone] Kiah MEJIA.WAFFLE MACHINE OPERATOR, Mone Unavailable Paramjit CORRALES, Meagan Unavailable Broderick Minor Primary Care Provider Sanchez GUSTAFSON, Dr. Coronel Primary Care Provider Samra GUSTAFSON, Randy Emergency Provider Corrie NOVAK, Dr. Villalobos Admit Provider Corrie NOVAK, Dr. Villalobos Other Provider Hadley GUSTAFSON, Jonathan Other Provider Unavailable Ronak GUSTAFSON, Dr. Peterson Other Provider Vimal GUSTAFSON, Leyda Other Provider Unavailable Dr. Hodan Chapa DO Other Provider Minnie GUSTAFSON, Dr. Lynn Other Provider [phone] Marilou GUSTAFSON, Dr. Alves Other Provider Isreal GUSTAFSON, Dr. Weems Other Provider Alba GUSTAFSON, Dr. England Other Provider [phone] Dr. Stuart Balbuena MD Other Provider Ruy GUSTAFSON, Dr. Galvin Other Provider Chioma Hsieh MD Other Provider Connor GUSTAFSON, Dr. Noyola Other Provider Reynaldo GUSTAFSON, Dr. Sandoval Other Provider Aga GUSTAFSON, Dr. Barber Other Provider Raquel GUSTAFSON, Dr. Jovanny Herndon Other Provider Paramjit GUSTAFSON, Dr. Marie Other Provider Prince GUSTAFSON, Dr. Krishnan Other Provider Zen GUSTAFSON, Dr. Patten Other Provider Edmond GUSTAFSON, Dr. Tanner Other Provider Unavailable Teto GUSTAFSON, Martha Other Provider Unavailable Robert GUSTAFSON, Dr. Lara Attending Provider Freida Collins MD, Dr. Guevara Mcgill Other Provider Dr. Wilfredo Denton DO Attending Provider Radha GUSTAFSON, Dr. Tomas Attending Provider Karina GUSTAFSON, Dr. Guevara Mcgill Attending Provider Robert GUSTAFSON, Dr. Lara Other Provider Unavailab raudel Chapin MD, Dr. Parsons Emergency Provider Dane GUSTAFSON, Dr. Lauren Barajas Attending Provider Dane GUSTAFSON, Dr. Lauren Barajas Admit Provider Dane GUSTAFSON, Dr. Lauren Barajas Other Provider Wilmer NOVAK, Dr. Nascimento Attending Provider Wilmer NOVAK, Dr. Nascimento Other Provider Randy Cabrales MD Attending Provider Dandre NOVAK, Dr. Schneider Attending Provider Dandre NOVAK, Dr. Schneider Emergency Provider Keon GUSTAFSON, Dr. Green Attending Provider Ramon NOVAK, Dr. Salmon Other Provider Dr. Luis Antonio Navarro DO Attending Provider Lou GUSTAFSON, Dr. Nava Other Provider Teri GUSTAFSON, Dr. Bowman Other Provider Torsten GUSTAFSON, Dr. Omalley Other Provider [phone] Dallin Christopher DO Other Provider Marc GUSTAFSON, Dr. Matt Candelario Other Provider Lilia GUSTAFSON, Dr. Gutierrez Other Provider Tom GUSTAFSON, Dr. Quintero Other Provider [phone] Blake GUSTAFSON, Dr. Celis Other Provider Khushi GUSTAFSON, Dr. Wright Other Provider [phone] Khari GUSTAFSON, Dr. Galvez Other Provider [phone] Kingsley GUSTAFSON, Dr. Hahn Other Provider Jourdan GUSTAFSON, Dr. Garcia Other Provider Rishabh GUSTAFSON, Dr. Ludwig Other [facility] Lamb MD, Dr. Terry Other Provider [phone] Chuck GUSTAFSON, Dr. Avelar Other Provider Bakari GUSTAFSON, Dr. Marte Other Provider Guille GUSTAFSON, Dr. Carter Other Provider Elisabeth NOVAK, Dr. Bush Other Provider Rosalinda GUSTAFSON, Dr. Sotelo Other Provider Aaron GUSTAFSON, Dr. Waldrop Other Provider Magy NOVAK, Dr. Salazar Other Provider Sergio GUSTAFSON, Dr. Dhillon Other Provider Jesus GUSTAFSON, Dr. Perry Other Provider [phone] Keon GUSTAFSON, Dr. Green Other Provider Dr. Dallin Christopher DO Attending Provider Afsaneh GUSTAFSON, Dr. Villalobos Attending Provider Sanchez GUSTAFSON, Dr. Coronel Primary Care Provider Samra GUSTAFSON, Randy Emergency Provider [phone] Luis Antonio Navarro DO Referring Provider Keon GUSTAFSON, Dr. Green Referring Provider Kate GUSTAFSON, Dr. Vijay Trujillo Attending Provider Meagan Heredia Referring Provider Kate GUSTAFSON, Dr. Vijay Trujillo Other Provider Sanchez GUSTAFSON, Dr. Coronel Referring Provider Eliel CATEGORY DEVELOPMENT MANAGER-C, Taylor Attending Provider Anjali GUSTAFSON, Dr. Rodriguez Attending Provider Anjali GUSTAFSON, Dr. Rodriguez Attending Provider Kate GUSTAFSON, Dr. Vijay Trujillo Other Provider Sanchez GUSTAFSON, Dr. Coronel Primary Care Provider Tavares GUSTAFSON, Dr. Parsons Emergency Provider Dane GUSTAFSON, Dr. Lauren Barajas Admit Provider Dane GUSTAFSON, Dr. Lauren Barajas Other Provider Sancehz GUSTAFSON, Dr. Coronel Primary Care Provider Tavares GUSTAFSON, Dr. Parsons Emergency Provider Dane GUSTAFSON, Dr. Lauren Barajas Admit Provider Dane GUSTAFSON, Dr. Lauren Barajas Other Provider Keon GUSTAFSON, Dr. Green Attending Provider Ramon NOVAK, Dr. Salmon Other Provider Dr. Luis Antonio Navarro DO Attending Provider Lou GUSTAFSON, Dr. Nava Other Provider Teri GUSTAFSON, Dr. Bowman Other Provider Torsten GUSTAFSON, Dr. Omalley Other Provider Dr. Dallin Christopher DO Other Provider Marc GUSTAFSON, Dr. Matt Candelario Other Provider Lilia GUSTAFSON, Dr. Gutierrez Other Provider [phone] Tom GUSTAFSON, Dr. Quintero Other Provider Blake GUSTAFSON, Dr. Celis Other Provider Khushi GUSTAFSON, Dr. Wright Other Provider Khari GUSTAFSON, Dr. Galvez Other Provider [phone] Queta Wynn MD, Dr. Hahn Other Provider Jourdan GUSTAFSON, Dr. aGrcia Other Provider Rishabh GUSTAFSON, Dr. Ludwig Other Provider Unavailricha Lamb MD, Dr. Terry Other Provider [phone] Chuck GUSTAFSON, Dr. Avelar Other Provider [phone] Bakari GUSTAFSON, Dr. Marte Other Provider Guille GUSTAFSON, Dr. Carter Other Provider Elisabeth NOVAK, Dr. Bush Other Provider Rosalinda GUSTAFSON, Dr. Sotelo Other Provider Aaron GUSTAFSON, Dr. Waldrop Other Provider Magy NOVAK, Dr. Salazar Other Provider Sergio GUSTAFSON, Dr. Dhillon Other Provider Jesus GUSTAFSON, Dr. Perry Other Provider [phone] Keon GUSTAFSON, Dr. Green Other Provider Dr. Luis Antonio Navarro DO Referring Provider Ashwin NOVAK, Dr. Zamarripa Attending Provider Asfaneh GUSTAFSON, Dr. Villalobos Attending Provider Keon GUSTAFSON, Dr. Green Referring Provider Anjali GUSTAFSON, Dr. Rodriguez Attending Provider Kate GUSTAFSON, Dr. Vijay Trujillo Attending Provider Meagan Heredia Referring Provider Dr. Vijay Love MD Other Provider Sanchez GUSTAFSON, Dr. Coronel Referring Provider Taylor Regan Attending Provider Broderick Minor Primary Care Physician Sanchez GUSTAFSON, Dr. Coronel Primary Care Physician [phone] Dr. Issa Chapin MD Emergency Department Physician Dane GUSTAFSON, Dr. Lauren Barajas Admitting Physician Dane GUSTAFSON, Dr. Lauren Barajas Nurse Practitioner Keon GUSTAFSON, Dr. Green Attending Physician Ramon NOVAK, Dr. Salmon Nurse Practitioner Ramon NOVAK, Dr. Salmon Attending Physician Lou GUSTAFSON, Dr. Nava Nurse Practitioner [phone] Teri GUSTAFSON, Dr. Bowman Nurse Practitioner [phone] Torsten GUSTAFSON, Dr. Omalley Nurse Practitioner [phone] Ashwin NOVAK, Dr. Zamarripa Nurse Practitioner [phone] Marc GUSTAFSON, Dr. Matt Candelario Nurse Practitioner [phone] Lilia GUSTAFSON, Dr. Gutierrez Nurse Practitioner Tom GUSTAFSON, Dr. Quintero Nurse Practitioner [phone] Blake GUSTAFSON, Dr. Celis Nurse Practitioner Khushi GUSTAFSON, Dr. Wright Nurse Practitioner [phone] Khari GUSTAFSON, Dr. Galvez Nurse Practitioner [phone] Kingsley GUSTAFSON, Dr. Hahn Nurse Practitioner [phone] Jourdan GUSTAFSON, Dr. Garcia Nurse Practitioner [phone] Rishabh GUSTAFSON, Dr. Ludwig Nurse Practitioner [facility] Zainab GUSTAFSON, Dr. Terry Nurse Practitioner [phone] Chuck GUSTAFSON, Dr. Avelar Nurse Practitioner [phone] Bakari GUSTAFSON, Dr. Marte Nurse Practitioner Guille GUSTAFSON, Dr. Carter Nurse Practitioner [phone] Elisabeth NOVAK, Dr. Bush Nurse Practitioner Rosalinda GUSTAFSON, Dr. Sotelo Nurse Practitioner [phone] Aaron GUSTAFSON, Dr. Waldrop Nurse Practitioner Magy NOVAK, Dr. Salazar Nurse Practitioner [phone] Sergio GUSTAFSON, Dr. Dhillon Nurse Practitioner [phone] Jesus GUSTAFSON, Dr. Perry Nurse Practitioner Keon GUSTAFSON, Dr. Green Nurse Practitioner Ashwin NOVAK, Dr. Zamarripa Attending Physician Afsaneh GUTSAFSON, Dr. Villalobos Attending Physician Anjali GUSTAFSON, Dr. Rodriguez Attending Physician Kate GUSTAFSON, Dr. Vijay Trujillo Attending Physician Kate GUSTAFSON, Dr. Vijay Trujillo Nurse Practitioner Eliel CATEGORY DEVELOPMENT MANAGER-C, Taylor Attending Physician HOMER BRADFORD Attending Unavailable SANCHEZ, HOMER A Primary Care Unavailable ALIZE WILCOX Attending Unavailable SANCHEZ, HOMER A Referring Unavailable SANCHEZ, HOMER A Primary Care Unavailable MEAGAN YUSUF Referring Unavailable SANCHEZ, HOMER A Primary Care Unavailable SANCHEZ, HOMER A Referring Unavailable SANCHEZ, HOMER A Primary Care Unavailable MEAGAN YUSUF Attending Unavailable SANCHEZ, HOMER A Primary Care Unavailable ORTIZ MASSEY Attending Unavailable SANCHEZ, HOMER A Referring Unavailable SANCHEZ, HOMER A Primary Care Unavailable SANCHEZ, HOMER A Attending Unavailable SANCHEZ, HOMER A Primary Care Unavailable MEAGAN YUSUF Attending Unavailable SANCHEZ, HOMER A Primary Care Unavailable Sanchez GUSTAFSON, Dr. Coronel Primary Care Physician [phone] Blair GUSTAFSON, Dr. Alcantar Attending Physician Blair GUSTAFSON, Dr. Alcantar Emergency Department Phys ician Sanchez, Homer Primary Care Unavailable Genoveva Garcia Attending Unavailabl e Sanchez, Homer Primary Care Unavailable White, Lauren L Consulting Unavailable White, Lauren L Admitting Unavailable Peter Herbert Attending Unavailable Luis Antonio Navarro Consulting Unavailable Sanchez, Homer Primary Care Unavailable Vijay Love Attending Unavailable Meagan Heredia Referring Unavailable Sanchez, Homer Primary Care Unavailable Vijay Love Attending Unavailable Meagan Heredia Referring Unavailable Sanchez, Homer Primary Care Unavailable Vijay Love Attending Unavailable Meagan Heredia Referring Unavailable Sanchez, Homer Primary Care Unavailable White, Lauren L Consulting Unavailable White, Lauren L Admitting Unavailable Azam Guillen Attending Unavailable Sanchez, Homer Primary Care Unavailable Jonathan Butcher Consulting Unavailable Jay Jonesya Attending Unavailable Wilfredo Denton Admitting Unavailable AdeKristen rahman Consulting Unavailable Leyda Celis Consulting Unavailable Hodan Chapa Consulting Unavailable Leah Hartman Consulting Unavailable Long Zamarripa Consulting Unavailable Faustina Bach Consulting Unavailable Tomás Willis Consulting Unavailable Stuart Balbuena Consulting Unavailable Kamar Redmond Consulting Unavailable Chioma Hsieh Consulting Unavailable Dennys Ryan Consulting Unavailable Lori Jacobs Consulting Unavailable Elisabeth Yung Consulting Unavailable Jovanny García Consulting UnavailFrank Bradley Consulting Unavailable Ariella Morrison Consulting Unavailable Sandor Zaldivar Consulting Unavailable Flores Pruitt Consulting Unavailable Martha Irene Consulting Unavailable Wilfredo Denton Consulting Unavailable Guevara Collins Consulting Unavailable Jones, Achintya Consulting Unavailable Sanchez, Homer Primary Care Unavailable Sanchez, Homer Referring Unavailable Jennifer Alba Attending Unavailable Sanchez, Homer Primary Care Unavailable Sanchez, Homer Referring Unavailable Eliel DILL, Taylor Attending Unavailable Sanchez, Homer Primary Care Unavailable Wilfredo Shelby Attending Unavailable Keon, Peter Referring Unavailable Guevara Collins Attending Unavailable Sanchez, Homer Primary Care Unavailable Sanchez, Homer Referring Unavailable Jennifer Alba Attending Unavailable Sanchez, Homer Primary Care Unavailable White, Lauren L Consulting Unavailable White, Lauren L Admitting Unavailable Dallin Christopher Attending Unavailable Luis Antonio Navarro Referring Unavailable Luis Antonio Navarro Consulting Unavailable Keon, Peter Consulting Unavailable Keon, Peter Attending Unavailable Sanchez, Homer Primary Care Unavailable Randy Cabrales Attending Unavailable Sanchez, Homer Primary Care Unavailable Wyatt Amos Attending Unavailricha blanc Sanchez, Homer Primary Care Unavailable Ortiz Pinto Attending Unavailable Sanchez, Homer Primary Care Unavailable WhiteLauren L Attending Unavailable Sanchez, Homer Primary Care Unavailable White, Lauren L Consulting Unavailable White, Lauren L Admitting Unavailable Azam Guillen Attending Unavailable Wilmer, Azam Consulting Unavailable Sanchez, Homer Primary Care Unavailable Sanchez, Homer Referring Unavailable Taylor Julian NP Attending Unavailable Sanchez, Homer Primary Care Unavailable Wilfredo Denton Attending Unavailable Lauren Vela Attending Unavailable Luis Antonio Navarro Attending Unavailable Elijah Blake Consulting Unavailable Colby Williamson Consulting Unavailable Shahram Sarmiento Consulting Unavailable Dallin Christopher Consulting Unavailable Matt Tran Consulting Unavailable Matt Rodrigues Consulting Unavailable Leon Santos Consulting Unavailable Lalita Lozano Consulting UnavailKyle Cuevas Consulting Unavailable Lenny Lucia Consulting Unavailable Jovani Wynn Consulting Unavailable Radha Soliman Consulting Unavailable Oziel Keating Consulting Unavailable Mara Lamb Consulting Unavailable Valentino Woods Consulting Unavailable Estuardo Villegas Consulting Unavailable Raul Han Consulting Unavailable Eleazar Barber Consulting Unavailable Deepak Tellez Consulting Unavailable Palma Walker Consulting Unavailable Martin Bhatti Consulting Unavailable Alejo Hill Consulting Unavailable Orlando Lee Consulting Unavailable Homer Bradford Primary Care Unavailable Vijay Love Attending Unavailable Meagan Heredia Referring Unavailable Homer Bradford Primary Care Unavailable Marco Jones Attending Unavailable Wilfredo Denton Admitting Unavailable Jonathan Butcher Consulting Unavailable Kristen Simons Consulting Unavailable Hindgabriel Leyda Consulting Unavailable Hodan Chapa Consulting Unavailable Leah Hartman Consulting Unavailable Long Zamarripa Consulting Unavailable Faustina Bach Consulting Unavailable Tomás Willis Consulting Unavailable Stuart Balbuena Consulting Unavailable Kamar Redmond Consulting Unavailable Chioma Hsieh Consulting Unavailable Dennys Ryan Consulting Unavailable Lori Jacobs Consulting Unavailable lEisabeth Yung Consulting Unavailable Jovanny García Consulting UnavailFrank Bradley Consulting Unavailable Ariella Morrison Consulting Unavailable Sandor Zaldivar Consulting Unavailable Flores Pruitt Consulting Unavailable Martha Irene Consulting Unavailable Wilfredo Denton Consulting Unavailable Guevara Collins Consulting Unavailable Allergies Allergy Classification Reported Allergen(s) Allergy Type Date of Onset Reaction(s) Facility Anti-Epileptic Agents (1 source) carBAMazepine Drug Allergy 02-13-20 14 GI Upset [facility] Anticholinergics (1 source) Benztropine Drug Allergy 02-13-20 14 Unknown [facility] Aspirin (1 source) Aspirin Drug Allergy 01-05-20 23 Unknown [facility] Work Phone: Benzodiazepines (1 source) diazePAM Drug Allergy 02-13-20 14 Unknown [facility] Opioid Agonists (1 source) Loperamide Drug Allergy 05-23-20 18 Other: See Comments [facility] Penicillins (antibiotic) (1 source) Penicillins Drug Allergy 03-30-20 06 Hives [facility] Streptococcus pneumoniae type 1 capsular polysaccharide antigen / Streptococcus pneumoniae type 10A capsular polysaccharide antigen / Streptococcus pneumoniae type 11A capsular polysaccharide antigen / Streptococcus pneumoniae type 12F capsular polysaccharide antigen / Streptococcus pneumoniae type 14 capsular polysaccharide antigen / Streptococcus pneumoniae type 15B capsular polysaccharide antigen / Streptococcus pneumoniae type 17F capsular polysaccharide antigen / Streptococcus pneumoniae type 18C capsular polysaccharide antigen / Streptococcus pneumoniae type 19A capsular polysaccharide antigen / Streptococcus pneumoniae type 19F capsular polysaccharide antigen / Streptococcus pneumoniae type 2 capsular polysaccharide antigen / Streptococcus pneumoniae type 20 capsular polysaccharide antigen / Streptococcus pneumoniae type 22F capsular polysaccharide antigen / Streptococcus pneumoniae type 23F capsular polysaccharide antigen / Streptococcus pneumoniae type 3 capsular polysaccharide antigen / Streptococcus pneumoniae type 33F capsular polysaccharide antigen / Streptococcus pneumoniae type 4 capsular polysaccharide antigen / Streptococcus pneumoniae type 5 capsular polysaccharide antigen / Streptococcus pneumoniae type 6B capsular polysaccharide antigen / Streptococcus pneumoniae type 7F capsular polysaccharide antigen / Streptococcus pneumoniae type 8 capsular polysaccharide antigen / Streptococcus pneumoniae type 9N capsular polysaccharide antigen / Streptococcus pneumoniae type 9V capsular polysaccharide antigen (1 source) Streptococcus pneumoniae type 1 capsular polysaccharide antigen / Streptococcus pneumoniae type 10A capsular polysaccharide antigen / Streptococcus pneumoniae type 11A capsular polysaccharide antigen / Streptococcus pneumoniae type 12F capsular polysaccharide antigen / Streptococcus pneumoniae type 14 capsular polysaccharide antigen / Streptococcus pneumoniae type 15B capsular polysaccharide antigen / Streptococcus pneumoniae type 17F capsular polysaccharide antigen / Streptococcus pneumoniae type 18C capsular polysaccharide antigen / Streptococcus pneumoniae type 19A capsular polysaccharide antigen / Streptococcus pneumoniae type 19F capsular polysaccharide antigen / Streptococcus pneumoniae type 2 capsular polysaccharide antigen / Streptococcus pneumoniae type 20 capsular polysaccharide antigen / Streptococcus pneumoniae type 22F capsular polysaccharide antigen / Streptococcus pneumoniae type 23F capsular polysaccharide antigen / Streptococcus pneumoniae type 3 capsular polysaccharide antigen / Streptococcus pneumoniae type 33F capsular polysaccharide antigen / Streptococcus pneumoniae type 4 capsular polysaccharide antigen / Streptococcus pneumoniae type 5 capsular polysaccharide antigen / Streptococcus pneumoniae type 6B capsular polysaccharide antigen / Streptococcus pneumoniae type 7F capsular polysaccharide antigen / Streptococcus pneumoniae type 8 capsular polysaccharide antigen / Streptococcus pneumoniae type 9N capsular polysaccharide antigen / Streptococcus pneumoniae type 9V capsular polysaccharide antigen Drug Allergy 12-26-19 15 Intolerance [facility] Sulfonamides (antibiotic) (1 source) Sulfonamides (Antibiotic) Drug Allergy 11-24-19 16 GI Upset [facility] Thioridazine (1 source) Thioridazine Drug Allergy 02-13-20 14 GI Upset [facility] (20 sources) Benztropine; Translations: [BENZTROPINE] Drug Allergy 02-13-20 14 Unknown [facility] Work Phone: (20 sources) carBAMazepine; Translations: [CARBAMAZEPINE] Drug Allergy 02-13-20 14 GI Upset [facility] Work Phone: (20 sources) diazePAM; Translations: [DIAZEPAM] Drug Allergy 02-13-20 14 Unknown [facility] Work Phone: (20 sources) Loperamide; Translations: [loperamide] Drug Allergy 05-23-20 18 Other: See Comments [facility] Work Phone: (20 sources) Penicillins; Translations: [penicillins] Drug Allergy 03-30-20 06 Hives [facility] Work Phone: (20 sources) Streptococcus pneumoniae type 1 capsular polysaccharide antigen / Streptococcus pneumoniae type 10A capsular polysaccharide antigen / Streptococcus pneumoniae type 11A capsular polysaccharide antigen / Streptococcus pneumoniae type 12F capsular polysaccharide antigen / Streptococcus pneumoniae type 14 capsular polysaccharide antigen / Streptococcus pneumoniae type 15B capsular polysaccharide antigen / Streptococcus pneumoniae type 17F capsular polysaccharide antigen / Streptococcus pneumoniae type 18C capsular polysaccharide antigen / Streptococcus pneumoniae type 19A capsular polysaccharide antigen / Streptococcus pneumoniae type 19F capsular polysaccharide antigen / Streptococcus pneumoniae type 2 capsular polysaccharide antigen / Streptococcus pneumoniae type 20 capsular polysaccharide antigen / Streptococcus pneumoniae type 22F capsular polysaccharide antigen / Streptococcus pneumoniae type 23F capsular polysaccharide antigen / Streptococcus pneumoniae type 3 capsular polysaccharide antigen / Streptococcus pneumoniae type 33F capsular polysaccharide antigen / Streptococcus pneumoniae type 4 capsular polysaccharide antigen / Streptococcus pneumoniae type 5 capsular polysaccharide antigen / Streptococcus pneumoniae type 6B capsular polysaccharide antigen / Streptococcus pneumoniae type 7F capsular polysaccharide antigen / Streptococcus pneumoniae type 8 capsular polysaccharide antigen / Streptococcus pneumoniae type 9N capsular polysaccharide antigen / Streptococcus pneumoniae type 9V capsular polysaccharide antigen; Translations: [PNEUMOCOCCAL 23-SHARLA PS VACCINE] Drug Allergy 12-26-19 15 Intolerance [facility] Work Phone: (20 sources) Sulfonamides (Antibiotic); Translations: [sulfa drugs] Drug Intolerance 11-24-19 16 GI Upset [facility] Work Phone: (20 sources) Thioridazine; Translations: [THIORIDAZINE] Drug Allergy 02-13-20 14 GI Upset [facility] Work Phone: (20 sources) Tetanus, Diphtheria Tox Absorb Adult,Child Booster; Translations: [TETANUS, DIPHTHERIA TOX ABSORB ADULT,CHILD BOOSTER] Drug Allergy 12-29-19 15 Swelling [facility] Work Phone: (20 sources) Thioridazine; Translations: [thioridazine HCl] Drug Allergy 08-25-19 22 Other [facility] (20 sources) Aspirin; Translations: [aspirin] Drug Allergy 01-05-20 23 [facility] Comment on above: Rash if aspirin is n ot coated (20 sources) Penicillins Drug Allergy 03-30-20 06 [facility] Work Phone: (17 sources) Penicillins Allergy to substance 09-12-19 23 [facility] (17 sources) Sulfonamides (Antibiotic) Propensity to adverse reactions 09-12-19 23 Nausea [facility] (20 sources) Penicillins Drug Allergy 03-30-20 [facility] (1 source) Benztropine Drug Allergy 04-30-20 [facility] (1 source) carBAMazepine Drug Allergy 04-30-20 25 [facility] (1 source) diazePAM Drug Allergy 04-30-20 25 [facility] (1 source) Penicillins Drug allergy (disorder) 04-30-20 25 [facility] (1 source) Sulfonamides (Antibiotic) Drug allergy (disorder) 04-30-20 25 [facility] (1 source) Thioridazine Drug Allergy 04-30-20 25 [facility] Medications Current Medications Medication Drug Class(es) Dates Sig (Normalized) Sig (Original) [id number] 200 actuat albuterol 0.09 mg/actuat metered dose inhaler (20 sources) beta2-Adrenergic Agonist Start: 04-30-2025 Start: 05-13-2023 End: 04-24-2025 Albuterol Sulfate 90 mcg/act uation HFA aerosol inhaler Discontinued 2 NMA INHALATION EVERY 6 HOURS as needed for shortness of breath or wheezing 8.5 0 January 11, 2025 4:23pm January 31, 2025 1:08pm Start: 05-13-2023 End: 01-31-2025 Start: 05-13-2023 take 1 puff(s) by in halation every six hours Albuterol Sulfate (Ventolin Hfa) 90 mcg/actuation HFA aerosol inhaler Active 1 PUFF INHALATION EVERY 6 HOURS 8.5 May 13, 2023 1:09pm Start: 12-04-2019 End: 11-14-2023 take 2 puff(s) by inhalation every four hours as needed albuterol HFA (VENTOLIN HFA) 90 mcg/actuation inhaler INHALE 2 PUFFS INSTRUCTED EVERY FOUR HOURS NEEDED. Dr. Christopher: Lee 1 Each 3 11/14/2023 Active Start: 06-22-2017 End: 05-13-2023 Albuterol Sulfate (Ventolin Hfa) 90 mcg/actuation HFA aerosol inhaler Discontinued 1 NMA INHALATION EVERY 6 HOURS June 22, 2017 1:00am May 13, 2023 1:10pm Start: 06-22-2017 End: 05-13-2023 Start: 06-22-2017 End: 05-13-2023 take 1 puff(s) by inhalation every six hours Albuterol Sulfate (Ventolin Hfa) 90 mcg/actuation HFA aerosol inhaler Discontinued 1 PUFF INHALATION EVERY 6 HOURS June 22, 2017 1:00am May 13, 2023 1:10pm Comment on above: INHALE 2 PUFFS IN STRUCTED EVERY FOUR HOURS NEEDED albuterol MDI (90 mcg/inh) CFC free inhalation aerosol (1 source) Start: 0 take 1 puff(s) by inhalation once as needed for wheezing albuterol MDI (90 mcg/inh) CFC free inhalation aerosol 1 puff(s), Inhalation, Once, PRN as needed for wheezing, # 18 gram(s), 0 Refill(s) Start Date: 02/05/20 Status: Ordered apixaban 5 mg oral tablet (20 sources) Factor Xa Inhibitor Start: 5 take 1 tablet by mouth every twelve hours Start: 09-07-2021 End: 11-04-2024 take 1 tablet by mouth every twelve hours Apixaban (Eliquis) 5 mg tablet Discontinued 5 mg PO Q12H 60 30 0 September 21, 2024 1:57pm November 04, 2024 5:23pm anticoagulant Start: 09-07-2021 End: 09-12-2024 take 1 tablet by mouth twice daily Apixaban (Eliquis) 5 mg tablet Discontinued 5 mg PO TWICE A DAY November 18, 2023 12:00am September 12, 2024 11:33am Comment on above: Take 1 tablet by spencer twice daily. Take by mouth twice daily. Take 1 tablet by spencer twice daily. Per Cardio, Fish aspirin 81 mg oral tablet (20 sources) Platelet Aggregation Inhibitor, Nonsteroidal Anti-inflammatory Drug Start: 01-08-2025 take 1 capsule by mouth once daily Start: 01-08-2025 Start: 09-21-2024 End: 11-04-2024 take 1 tablet by mouth at breakfast Aspirin 81 mg Tablet,Chewable Discontinued 81 mg PO WITH BREAKFAST September 21, 2024 1:00am November 04, 2024 5:23pm Start: 11-11-2014 End: 10-14-2021 take 1 tablet by mouth once daily aspirin, enteric coated (ASPIRIN, ENTERIC COATED) 81 mg EC tablet Take 81 mg by mouth once daily. 02/05/2020 Active Start: 01-14-2014 End: 06-22-2017 take 1 tablet by mouth once daily Aspirin 81 MG tablet,chewable Discontinued 81 mg PO DAILY January 14, 2014 12:00am June 22, 2017 2:45pm Comment on above: Take 1 tablet by spencer once daily. benoxinate hydrochloride 4 mg/ml / fluorescein sodium 3 mg/ml ophthalmic solution (1 source) Diagnostic Dye Start: 025 End: fluorescein-benoxinate 0.3-0.4 % 1 drop (FLURESS) cetirizine hydrochloride 10 mg oral tablet (1 source) Histamine-1 Receptor Antagonist Start: cetirizine 10 mg oral tablet (NF) Dose : 10 mg = 1 tab(s), Oral, qDay, PRN as needed for allergy symptoms, # 10 tab(s), 0 Refill(s) Start Date: 08/13/15 Status: Ordered COMPOUNDED PRESCRIPTION (20 sources) Start: 019 COMPOUNDED PRESCRIPTION Indications: Urinary incontinence, unspecified type , Incontinence of feces, unspecified fecal incontinence type Adult diapers size XL Change diaper up to seven times a day. # 210 diapers With 5 refills Dx: R32 and R15.9 210 Device 5 04/18/2019 Active Comment on above: Adult diapers size X L Change diaper up to seven times a day. # 210 diapers With 5 refills Dx: R32 and R15.9 diphenhydrAMINE hydrochloride 25 mg oral capsule (3 sources) Histamine-1 Receptor Antagonist Start: 023 End: 023 take 1-2 capsules by mouth every four hours as needed diphenhydrAMINE (BENADRYL) 25 mg capsule Indications: Rash Take 1-2 capsules by mouth every 4 hours as needed for itching/rash for up to 14 days. 28 capsule 2 10/04/2022 10/18/2022 Active Start: 09-15-2022 End: 09-29-2022 take 1-2 capsules by mouth every four hours as needed diphenhydrAMINE (BENADRYL) 25 mg capsule Indications: Rash Take 1-2 capsules by mouth every 4 hours as needed for up to 14 days. 28 capsule 0 09/15/2022 09/29/2022 Active Comment on above: Take 1-2 capsules by mouth every 4 hours as needed for up to 14 days. Take 1-2 capsules by mouth every 4 hours as needed for itching/rash for up to 14 days. erythromycin 0.005 mg/mg ophthalmic ointment (1 source) Macrolide, Macrolide Antimicrobial Start: 023 End: 023 erythromycin (ROMYCIN) 5 mg/gram (0.5 %) ophthalmic ointment Use 1 application in the right eye twice daily for 7 days. 3.5 g 0 01/04/2023 01/11/2023 Active Comment on above: Use 1 application in the right eye twice daily for 7 days. Fish Oils (1 source) Start: 021 Fish Oil 1000 mg oral capsule Dose : 1,000 mg = 1 cap(s), Oral, BID, # 60 cap(s), 0 Refill(s) Start Date: 12/30/20 Status: Ordered lidocaine 0.05 mg/mg medicated patch (3 sources) Antiarrhythmic, Amide Local Anesthetic Start: 025 apply 1 dose transdermal route once daily lidocaine (LIDODERM) 5 % Apply 1 patch as directed once daily. REMOVE AFTER 12 HOURS. 10 patch 03/28/2025 Active Start: 11-11-2023 End: 11-11-2023 lidocaine (PF) 10 mg/mL (1 % ) 4 mL injection (XYLOCAINE) Lopressor 25mg--USE metoprolol tartrate 25 mg oral tablet (1 source) Start: 12-09-2021 take 1 tablet by mouth once daily at bedtime Lopressor 25mg--USE metoprolol tartrate 25 mg oral tablet 1 tab(s), Oral, qDay, at bedtime, # 30 tab(s), 5 Refill(s), Pharmacy: [facility] [id number], 160, cm, 12/09/21 15:05:00 EDT, Height, kg, 12/09/21 15:05:00 EDT, Dosing Weight Start Date: 12/09/21 Status: Ordered LORazepam 0.5 mg oral tablet (20 sources) Benzodiazepine Start: 11-14-2024 take 1 tablet by mouth every twelve hours as needed for anxiety Start: 06-22-2017 End: 11-07-2024 take 1 tablet by mouth every twelve hours as needed for anxiety Lorazepam (Ativan) 0.5 mg tablet Discontinued 0.5 mg PO Q12H as needed for Anxiety 60 30 0 September 21, 2024 1:57pm November 07, 2024 4:42pm Start: 12-03-2015 End: 05-15-2024 take 1 tablet by mouth twice daily as needed for anxiety Lorazepam (Ativan) 0.5 mg tablet Discontinued 0.5 mg PO TWICE DAILY NEEDED as needed for Anxiety June 22, 2017 1:00am September 28, 2021 10:20am Comment on above: Take 1 tablet by spencer th twice daily as needed (anxiety). lovastatin 40 mg oral tablet (20 sources) HMG-CoA Reductase Inhibitor Start: 11-14-2024 Start: 11-14-2023 End: 01-07-2025 take 1 tablet by mouth once daily at bedtime for hyperlipidemia lovastatin 40 mg tablet TAKE 1 TABLET BY MOUTH DAILY AT BEDTIME. FOR CHOLESTEROL. 90 tablet 1 01/07/2025 Active Start: 06-22-2017 End: 11-07-2024 take 2 tablets by mouth once daily Lovastatin 20 mg ta blet Discontinued 40 mg PO daily June 22, 2017 1:00am November 07, 2024 4:42pm cholesterol Start: 01-14-2014 End: 11-07-2024 take 1 tablet by mouth once daily Lovastatin 20 MG tab let Discontinued 20 mg PO DAILY January 14, 2014 12:00am June 22, 2017 2:45pm Comment on above: TAKE 1 TABLET BY SPENCER TH DAILY AT BEDTIME. FOR CHOLESTEROL. MEDICAL SUPPLY (20 sources) Start: 12-11-2024 MEDICAL SUPPLY Adult Size Pull On XXL/Bariatric needs 6 a day, Dx: N39.46, R15.9 and M62.81 240 each 12/11/2024 Active Start: 01-31-2024 MEDICAL SUPPLY Indications: Mixed incontinence urge and stress (male)(female) , Incontinence of feces, unspecified fecal incontinence type Please replace pull up every 1.5-2 hrs while awake and 1-3 times a night to reduce risk of skin break down and secondary infections. #240 a month Dx: N39.46 and R15.9 240 Each 11 01/31/2024 Active Start: 06-09-2022 End: 01-30-2024 MEDICAL SUPPLY Indications: Mixed incontinence urge and stress (male)(female) , Incontinence of feces, unspecified fecal incontinence type Please replace pull up every 1.5-2 hrs while awake and 1-3 times a night to reduce risk of skin break down and secondary infections. #240 a month Dx: N39.46 and R15.9 240 Each 11 06/09/2022 01/30/2024 Discontinued Start: 06-09-2022 MEDICAL SUPPLY Indications: Mixed incontinence urge and stress (male)(female) , Incontinence of feces, unspecified fecal incontinence type Please replace pull up every 1.5-2 hrs while awake and 1-3 times a night to reduce risk of skin break down and secondary infections. #240 a month Dx: N39.46 and R15.9 240 Each 11 06/09/2022 Active Comment on above: Please replace pull up every 1.5-2 hrs while awake and 1-3 times a night to reduce risk of skin break down and secondary infections. #240 a month Dx: N39.46 and R15.9 Menthol / Zinc Oxide (14 sources) Start: 09-07-2021 Menthol-Zinc Oxide (Calmoseptine) 0.44-20.6 % Ointment Active 1 APPLIC TOPICAL TWICE A DAY 0 September 07, 2021 11:40am Start: 09-07-2021 End: 11-18-2023 Menthol-Zinc Oxide (Calmosep cris) 0.44-20.6 % Ointment Discontinued 1 NMA TOPICAL TWICE A DAY 0 0 September 07, 2021 1:00am November 18, 2023 11:24am On Hold: Order Completed Please contact the information source for Protocol details. Start: 09-07-2021 End: 11-18-2023 Menthol-Zinc Oxide (Calmosep cris) 0.44-20.6 % Ointment Discontinued 1 NMA TOPICAL TWICE A DAY 0 0 September 07, 2021 1:00am November 18, 2023 11:24am On Hold: Order Completed Please contact the information source for Protocol details. Start: 09-07-2021 End: 11-18-2023 Menthol-Zinc Oxide (Calmosep cris) 0.44-20.6 % Ointment Discontinued 1 NMA TOPICAL TWICE A DAY 0 September 07, 2021 1:00am November 18, 2023 11:24am On Hold: Order Completed Please contact the information source for Protocol details. Start: 09-07-2021 End: 11-18-2023 Menthol-Zinc Oxide (Calmosep cris) 0.44-20.6 % Ointment Discontinued 1 NMA TOPICAL TWICE A DAY 0 September 07, 2021 12:00am November 18, 2023 10:24am On Hold: Order Completed Please contact the information source for Protocol details. Start: 09-07-2021 End: 11-18-2023 Menthol-Zinc Oxide (Calmosep cris) 0.44-20.6 % Ointment Discontinued 1 APPLIC TOPICAL TWICE A DAY 0 September 07, 2021 1:00am November 18, 2023 11:24am Start: 09-07-2021 Menthol-Zinc O xide (Calmoseptine) 0.44-20.6 % Ointment Active 1 APPLIC TOPICAL TWICE A DAY 0 September 07, 2021 12:00am Start: 09-07-2021 Menthol-Zinc O xide (Calmoseptine) 0.44-20.6 % Ointment Active 1 APPLIC TOPICAL TWICE A DAY 0 September 07, 2021 1:00am methenamine hippurate 1000 m g oral tablet (5 sources) Start: 02-27-2025 mupirocin 0.02 mg/mg topical ointment (19 sources) RNA Synthetase Inhibitor Antibacterial Start: 2025 Start: 01-25-2025 mupirocin (ESTEFANÍA TROBAN) 2 % ointment Apply 2 FTUs to affected area three times a day x7 days 15 g 01/25/2025 Active nitrofurantoin, macrocrystals 25 mg / nitrofurantoin, monohydrate 75 mg oral capsule (10 sources) Nitrofuran Antibacterial Start: 01-25-2025 End: 02-01-2025 take 1 capsule by mouth twice daily nitroglycerin 0.4 mg sublingual tablet (20 sources) Nitrate Vasodilator Start: 01-31-2025 take 1 tablet under the tongue once daily Start: 06-22-2017 End: 09-12-2024 Nitroglycerin 0.4 mg tablet, sublingual Discontinued 0.4 mg SL Q5M as needed for CHEST PAIN June 22, 2017 1:00am September 12, 2024 11:34am Start: 06-22-2017 End: 12-18-2024 nitroglycerin sublingual (NI TROQUICK) 0.4 mg SL tablet Dissolve 1 tablet under the tongue every 5 minutes as needed for chest pain. 25 tablet 1 12/18/2024 Active Start: 06-22-2017 nitroglycerin 0.4 mg sublingual tablet 0.4 mg Dose = 1 tab(s), Sublingual, q5min, PRN for chest pain, # 25 tab(s), 0 Refill(s) Start Date: 12/30/20 Status: Ordered Comment on above: Dissolve 1 tablet un flower the tongue every 5 minutes as needed for chest pain. Nitroglycerin 0.4 mg tablet, sublingual (1 source) Start: take 1 tablet under the tongue once daily Nitroglycerin 0.4 mg tablet, sublingual Active 0.4 mg SL DAILY January 31, 2025 12:00am omeprazole 40 mg delayed release oral capsule (20 sources) Proton Pump Inhibitor Start: take 1 capsule by mouth once daily Start: 08-13-2015 End: 11-07-2024 take 1 capsule by mouth once daily Omeprazole 40 mg capsule,delayed release(DR/EC) Discontinued 40 mg PO DAILY November 18, 2023 12:00am November 07, 2024 4:43pm Gerd Comment on above: Take 1 capsule by [facility] once daily. phenylephrine hydrochloride 25 mg/ml ophthalmic solution (2 sources) alpha-1 Adrenergic Agonist Start: 03-21-2025 End: 03-22-2025 PHENYLephrine 2.5 % 1 drop (AK-DILATE, YELENA-SYNEPHRINE) Start: 01-04-2023 End: 01-05-2023 PHENYLephrine 2.5 % 1 Drop ( AK-DILATE, YELENA-SYNEPHRINE) microencapsulated potassium chloride 20 meq extended release oral tablet (1 source) Start: 12-28-2021 End: 01-04-2022 take 1 tablet by mouth once daily potassium chloride ER (KLOR-CON M20) 20 mEq tablet Indications: Hypokalemia Take 1 tablet by mouth once daily for 7 days. 7 tablet 0 12/28/2021 01/04/2022 Active Comment on above: [facility] for 7 days. predniSONE 20 mg oral tablet (20 sources) Start: 04-30-2025 take 1 tablet by mouth once daily Start: 10-04-2022 End: 10-19-2022 predniSONE (DELTASONE) 10 mg tablet Indications: Rash Take 4 tabs daily x5 days, then 2 tabs daily for 5 days, then 1 tab daily for 5 days. 35 tablet 0 10/04/2022 10/19/2022 Active Start: 09-15-2022 End: 09-24-2022 predniSONE (DELTASONE) 10 mg tablet Indications: Rash Take 4 tabs daily for 3 days, then 2 tabs daily for 3 days, then 1 tab daily for 3 days with food. 21 tablet 0 09/15/2022 09/24/2022 Active Start: 09-12-2022 End: 03-04-2023 take 1 tablet by mouth once daily Prednisone 20 mg tablet Discontinued 20 mg PO DAILY 5 September 12, 2022 1:00am March 04, 2023 11:23am Start: 09-07-2021 End: 09-28-2021 Prednisone 10 mg tablet Disc ontinued 10 mg PO DAILY 25 September 07, 2021 1:00am September 28, 2021 10:20am 30 mg for 4 days, 20 mg for 4 days, and 10 mg for 5 days Start: 09-07-2021 End: 09-28-2021 Start: 09-07-2021 End: 09-28-2021 Prednisone Discontinued 10 M G PO DAILY September 07, 2021 1:00am September 28, 2021 10:20am 30 mg for 4 days, 20 mg for 4 days, and 10 mg for 5 days Comment on above: Take 4 tabs daily fo r 3 days, then 2 tabs daily for 3 days, then 1 tab daily for 3 days with food. Take 4 tabs daily x5 days, then 2 tabs daily for 5 days, then 1 tab daily for 5 days. proparacaine hydrochloride 5 mg/ml ophthalmic solution (1 source) Local Anesthetic Start: 01-05-20 End: 01-06-20 proparacaine 0.5 % 1 Drop (ALCAINE) 24 hr QUEtiapine 200 mg extended release oral tablet (20 sources) Atypical Antipsychotic Start: 01-30-20 take 1 tablet by mouth every twenty-four hours Start: 11-14-2024 End: 01-08-2025 take 1 tablet by mouth every twenty-four hours Quetiapine 200 mg tablet extended release 24 hr Discontinued PO November 14, 2024 12:00am January 08, 2025 5:24pm Start: 11-07-2024 take 2 tablets by mo [facility] twice daily Start: 09-12-2024 End: 11-07-2024 take 1 tablet by mouth twice daily Quetiapine 200 mg tablet extended release 24 hr Discontinued 200 mg PO TWICE A DAY September 21, 2024 1:57pm November 07, 2024 4:44pm Bipolar Start: 11-23-2021 End: 11-17-2023 QUEtiapine ER (SEROQUEL XR) 200 mg 24 hr tablet Take 1 tablet by mouth two times a day. Per psych, Dr. Negrete, not on as of 11/16/2023 11/17/2023 Active Start: 04-28-2017 End: 11-20-2021 QUEtiapine ER (SEROQUEL XR) 200 mg 24 hr tablet Take 1 tablet by mouth twice daily. Per psych 0 04/28/2017 10/14/2021 Discontinued Start: 08-13-2015 End: 11-18-2023 take 1 tablet by mouth twice daily Quetiapine (Seroquel) 200 mg tablet Discontinued 200 mg PO TWICE A DAY June 22, 2017 1:00am November 18, 2023 11:25am Start: 10-03-2014 End: 06-22-2017 take 1 tablet by mouth twice daily Quetiapine 200 MG tablet extended release 24 hr Discontinued 200 mg PO TWICE A DAY October 03, 2014 12:00am June 22, 2017 2:44pm Comment on above: Take 1 tablet by spencer th twice daily. Per psych Take 1 tablet by spencer th twice daily. Per psych, Dr. Negrete tropicamide 10 mg/ml ophthalmic solution (2 sources) Anticholinergic Start: 03-21-2025 End: 03-22-2025 tropicamide 1 % 1 drop (MYDRIACYL) Start: 01-04-2023 End: 01-05-2023 tropicamide 1 % 1 Drop (MYDR IACYL) Vibegron (20 sources) Start: 02-27-2025 take 1 tablet by mouth once da wilver Start: 02-27-2025 take 1 tablet by spencer th once daily Vibegron (Gemtesa) 75 mg tablet Active 75 mg PO daily 3 February 27, 2025 12:00am Start: 02-27-2025 Start: 2025 take 1 tablet by spencer th once daily Start: 2025 take 1 tablet by spencer th once daily Vibegron (Vibegron 75 Mg Tablet) 75 mg tablet Active 75 mg PO DAILY 2025 12:00am Start: 2025 Start: 11-07-2024 End: 01-08-2025 take 1 tablet by mouth once daily Vibegron (Gemtesa) 75 mg tablet Discontinued 75 mg PO DAILY 30 0 November 07, 2024 12:00am January 08, 2025 5:24pm Start: 11-07-2024 End: 01-08-2025 Start: 11-04-2024 End: 11-07-2024 take 1 tablet by mouth once daily Vibegron (Gemtesa) 75 mg tablet Discontinued 75 mg PO DAILY November 04, 2024 12:00am November 07, 2024 4:45pm . Start: 11-04-2024 End: 11-07-2024 vibegron (GEMTESA) 75 mg tablet (9 sources) Start: 11-07-2024 take 1 tablet by mouth once daily vibegron (GEMTESA) 75 mg tablet Take 75 mg by mouth once daily. 11/07/2024 Active (20 sources) Start: 01-31-2025 Start: 2025 End: 01-31-2025 Start: 11-14-2024 End: 01-08-2025 Start: 11-04-2024 End: 11-07-2024 Start: 03-04-2023 End: 09-21-2024 Start: 09-07-2021 End: 11-18-2023 Start: 08-19-2020 End: 11-18-2023 Start: 10-03-2014 End: 06-22-2017 Start: 01-14-2014 End: 06-22-2017 Completed/Discontinued Medications Medication Drug Class(es) Dates Sig (Normalized) Sig (Original) acetaminophen 325 mg / oxyCODONE hydrochloride 5 mg oral tablet (20 sources) Opioid Agonist Start: 11-24-2023 End: 09-12-2024 Oxycodone-Acetamino phen (Percocet) 5-325 mg tablet Discontinued 1 {tbl} PO Q8H as needed for pain 10 3 0 November 24, 2023 September 12, 2024 11:35am Urinary incontinence Unspecified urinary incontinence Start: 11-24-2023 End: 09-12-2024 Start: 09-09-2020 End: 09-16-2020 Oxycodone-Acetaminophen 1 TA BLET tablet Discontinued 2 {tbl} PO EVERY 8 HOURS NEEDED as needed for Pain 20 7 0 September 09, 2020 September 15, 2020 1:00am September 16, 2020 1:03am Urinary incontinence Unspecified urinary incontinence Start: 09-09-2020 End: 09-16-2020 Start: 09-09-2020 End: 09-16-2020 take 2 tablets by mouth every eight hours as needed Oxycodone-Acetaminophen Discontinued 2 TABLET PO EVERY 8 HOURS NEEDED 03 02September 09, 2020 September 16, 2020 1:03am Start: 08-26-2020 End: 09-02-2020 Oxycodone-Acetaminophen 1 TA BLET tablet Discontinued 2 {tbl} PO EVERY 8 HOURS NEEDED as needed for Pain 7 0 August 26, 2020 September 01, 2020 1:00am September 02, 2020 1:03am Urinary incontinence Unspecified urinary incontinence Start: 08-26-2020 End: 09-02-2020 Start: 08-26-2020 End: 09-02-2020 take 2 tablets by mouth every eight hours as needed Oxycodone-Acetaminophen Discontinued 2 TABLET PO EVERY 8 HOURS NEEDED 03 02August 26, 2020 September 02, 2020 1:03am ACETAMINOPHEN, BULK, MISC (2 sources) End: 10-14-2021 ACETAMINOPHEN, BULK, MISC Discontinued End: 10-14-2021 ACETAMINOPHEN, BULK, MISC albuterol 0.833 mg/ml / ipratropium bromide 0.167 mg/ml inhalation solution (20 sources) Anticholinergic, beta2-Adrenergic Agonist Start: 01-08-2025 End: 01-31-2025 Ipratropium-Albuterol 0.5 mg-3 mg(2.5 mg base)/3 mL solution for nebulization Discontinued 3 mL INHALATION Q20M as needed for shortness of breath 90 30 0 January 11, 2025 12:03pm January 31, 2025 1:08pm for 3 doses Start: 10-14-2021 End: 01-17-2025 take 3 mL by inhalation every three hours as needed ipratropium-albuterol (DUONEB) 0.5 mg-3 mg(2.5 mg base)/3 mL nebu Inhale 3 mL as instructed every 3 hours as needed for wheezing/shortness of breath. For SOB related to ACUTE RESPIRATORY FAILURE WITH HYPOXIA (J96.01) while awake, Dr. Dallin Christopher: Pulm. not on as of 11/16/2023 40 Each 1 11/17/2023 01/17/2025 Discontinued Start: 09-07-2021 End: 11-07-2024 take 1 mL by inhalation every four hours as needed for wheezing Ipratropium-Albuterol 0.5 mg-3 mg(2.5 mg base)/3 mL Solution For Nebulization Discontinued 3 mL INHALATION EVERY 4 HOURS WHILE AWAKE as needed for shortness of breath or wheezing 0 September 07, 2021 1:00am November 07, 2024 4:42pm Start: 09-07-2021 End: 11-07-2024 Start: 09-07-2021 take 1 mL by inhalat ion every four hours Ipratropium-Albuterol Active 3 ML INHALATION EVERY 4 HOURS WHILE AWAKE 0 September 07, 2021 1:00am Start: 06-22-2017 End: 05-22-2018 take 20-100 ug by inhalation every six hours Ipratropium-Albuterol (Combivent Respimat) 20-100 mcg/actuation mist Discontinued 1 NMA INHALATION EVERY 6 HOURS June 22, 2017 1:00am May 22, 2018 3:22pm Start: 06-22-2017 End: 05-22-2018 Start: 06-22-2017 End: 05-22-2018 take 20-100 ug by inhalation every six hours Ipratropium-Albuterol (Combivent Respimat) 20-100 mcg/actuation mist Discontinued 1 PUFF INHALATION EVERY 6 HOURS June 22, 2017 1:00am May 22, 2018 3:22pm ipratropium-albu terol (DUONEB) 0.5 mg-3 mg(2.5 mg base)/3 mL nebu 3 mL every 6 hours as needed for wheezing/shortness of breath. Active Comment on above: Inhale 3 mL as instr ucted every 3 hours as needed for wheezing/shortness of breath. For SOB related to ACUTE RESPIRATORY FAILURE WITH HYPOXIA (J96.01) while awake amantadine hydrochloride 100 mg oral capsule (20 sources) Influenza A M2 Protein Inhibitor Start: 016 End: 024 take 1 capsule by mouth twice daily Amantadine Hcl 100 mg capsule Discontinued 100 mg PO TWICE A DAY June 22, 2017 1:00am November 18, 2023 11:24am Start: 12-01-2015 End: 01-17-2025 Start: 08-13-2015 End: 08-23-2015 amantadine 100 mg oral capsu le Dose : 100 mg = 1 cap(s), Oral, BID, 0 Refill(s) Start Date: 08/13/15 Stop Date: 08/23/15 Status: Ordered Comment on above: Take 1 capsule by [facility] twice daily. Take 1 capsule by mo [facility] once daily. Take 1 capsule by [facility] twice daily. Per Neuro, Dr. Calderón atorvastatin 10 mg oral tablet (9 sources) HMG-CoA Reductase Inhibitor Start: 11-08-19 End: 01-09-20 take 1 tablet by mouth once daily Atorvastatin 10 mg Tablet Discontinued 10 mg PO DAILY 30 0 November 07, 2024 12:00am January 08, 2025 5:24pm baclofen 10 mg oral tablet (20 sources) gamma-Aminobutyric Acid-ergic Agonist Start: 07-15-20 End: 09-27-19 take 1 tablet by mouth every twelve hours as needed baclofen 10 mg tablet Take 1 tablet by mouth twice daily as needed (muscle spasms). For leg cramps 60 tablet 2 02/28/2023 09/27/2023 Discontinued Comment on above: Take [facility] tablet [facility] daily as needed (muscle spasms). For leg cramps betamethasone 3 mg/ml / betamethasone acetate 3 mg/ml injectable suspension (2 sources) Corticosteroid Start: 11-11-19 End: 11-11-19 betamethasone acetate-betamethason e sodium phosphate 6 mg injection (CELESTONE) bisacodyl 10 mg rectal suppository (20 sources) Stimulant Laxative Start: 09-29-19 End: 11-18-19 Bisacodyl (Dulcolax (Bisacodyl)) 10 mg suppository Discontinued 10 mg RC DAILY as needed for constipation September 28, 2021 12:00am November 18, 2023 11:24am Comment on above: 1 Suppository by REC ASIF route once daily as needed for constipation. 10 mg by RECTAL rout e once daily as needed for constipation. bismuth subsalicylate 17.5 mg/ml oral suspension (2 sources) Bismuth End: 10-15-19 take 15 mL by mouth every six hours as needed bismuth subsalicylate (PEPTO-BISMOL) 262 mg/15 mL suspension Take 15 mL by mouth every 6 hours as needed. 10/14/2021 Discontinued Comment on above: Take 15 mL by mouth every 6 hours as needed. Blood Pressure Cuff - Home Use (1 source) Start: 11-12-19 End: 05-29-20 Blood Pressure Cuff - Home Use BLOOD PRESSURE CUFF FOR HOME USE. DX: LABILE BLOOD PRESSURE 1 Device 0 11/11/2014 05/29/2021 Discontinued Blood-Glucose Meter (FREESTYLE LITE METER) monitoring kit (1 source) Start: 06-12-20 End: 05-29-20 Blood-Glucose Meter (FREESTYLE LITE METER) monitoring kit Indications: DM type 2 (diabetes mellitus, type 2) ([facility]) Freestyle LITE Meter Kit - 1 Each 0 06/12/2014 05/29/2021 Discontinued Blood-Glucose Meter monitoring kit (4 sources) Start: 11-28-19 End: 11-29-19 Blood-Glucose Meter monitoring kit Glucose Meter of Choice - Kit - Dx: Type 2 DM - Controlled E11.9 No insulin 1 Each 0 11/27/2021 11/28/2021 Start: 10-20-2021 End: 10-21-2021 Blood-Glucose Meter monitori ng kit Glucose Meter of Choice - Kit - Dx: Type 2 DM - Controlled E11.9, No insulin 1 Each 0 10/20/2021 10/21/2021 Active Start: 10-27-2017 End: 10-14-2021 Blood-Glucose Meter monitori ng kit Indications: Type 2 diabetes mellitus without complication, without long-term current use of insulin ([facility]) Glucose Meter of Choice - Kit - Dx: Type 2 DM - Controlled E11.9 1 Each 10/27/2017 10/14/2021 Discontinued Start: 10-27-2017 End: 10-14-2021 Blood-Glucose Meter monitori ng kit Indications: Type 2 diabetes mellitus without complication, without long-term current use of insulin ([facility]) Glucose Meter of Choice - Kit - Dx: Type 2 DM - Controlled E11.9 1 Each 0 10/27/2017 10/14/2021 Discontinued Comment on above: Glucose Meter of [place] ice - Kit - Dx: Type 2 DM - Controlled E11.9 Glucose Meter of Cho ice - Kit - Dx: Type 2 DM - Controlled E11.9, No insulin Glucose Meter of [place] ice - Kit - Dx: Type 2 DM - Controlled E11.9 No insulin Budesonide-Formoterol (20 sources) Corticosteroid, beta2-Adrenergic Agonist Start: 02-25-2022 End: 03-04-2023 Budesonide-Formoterol (Symbicort) 160-4.5 mcg/actuation HFA aerosol inhaler Discontinued 2 NMA INHALATION TWICE A DAY 1 3 February 25, 2022 12:00am March 04, 2023 11:23am Smoking greater than 40 pack years Nicotine dependence, cigarettes, uncomplicated administer with spacer, rinse mouth after each use Start: 02-25-2022 End: 03-04-2023 Start: 02-25-2022 End: 03-04-2023 Budesonide-Formoterol (Symbi steve) 160-4.5 mcg/actuation HFA aerosol inhaler Discontinued 2 NMA INHALATION TWICE A DAY 1 February 25, 2022 12:00am March 04, 2023 11:23am administer with spacer, rinse mouth after each use Start: 02-25-2022 End: 03-04-2023 Budesonide-Formoterol (Symbi steve) 160-4.5 mcg/actuation HFA aerosol inhaler Discontinued 2 NMA INHALATION TWICE A DAY February 24, 2022 11:00pm March 04, 2023 10:23am administer with spacer, rinse mouth after each use Start: 02-25-2022 End: 03-04-2023 take 1 puff(s) by mouth twice daily Budesonide-Formoterol (Symbicort) 160-4.5 mcg/actuation HFA aerosol inhaler Discontinued 2 PUFF INHALATION TWICE A DAY 1 February 25, 2022 12:00am March 04, 2023 11:23am administer with spacer, rinse mouth after each use Start: 02-25-2022 take 1 puff(s) by mo [facility] twice daily Budesonide-Formoterol (Symbicort) 160-4.5 mcg/actuation HFA aerosol inhaler Active 2 PUFF INHALATION TWICE A DAY February 24, 2022 11:00pm administer with spacer, rinse mouth after each use Start: 02-25-2022 take 1 puff(s) by mo [facility] twice daily Budesonide-Formoterol (Symbicort) 160-4.5 mcg/actuation HFA aerosol inhaler Active 2 PUFF INHALATION TWICE A DAY February 25, 2022 12:00am administer with spacer, rinse mouth after each use Start: 06-22-2017 End: 05-22-2018 Budesonide-Formoterol (Symbi steve) 160-4.5 mcg/actuation HFA aerosol inhaler Discontinued 2 NMA INHALATION Q12H June 22, 2017 1:00am May 22, 2018 3:21pm Start: 06-22-2017 End: 05-22-2018 Budesonide-Formoterol (Symbi steve) 160-4.5 mcg/actuation HFA aerosol inhaler Discontinued 2 INH INHALATION Q1June 22, 2017 1:00am May 22, 2018 3:21pm Start: 01-14-2014 End: 06-22-2017 Budesonide-Formoterol 1 INHA LER inhaler Discontinued 2 NMA INHALATION TWICE A DAY January 14, 2014 12:00am June 22, 2017 2:45pm Start: 01-14-2014 End: 05-22-2018 Start: 01-14-2014 End: 06-22-2017 take 1 puff(s) by inhalation twice daily Budesonide-Formoterol Discontinued 2 PUFF INHALATION TWICE A DAY January 14, 2014 12:00am June 22, 2017 2:45pm 30 ml bupivacaine hydrochloride 5 mg/ml injection (2 sources) Amide Local Anesthetic Start: 11-11-2023 End: 11-11-2023 BUPivacaine (PF) 0.5 % (5 mg/mL) 4 mL injection calcium carbonate 1500 mg oral tablet (20 sources) Start: 06-22-2017 End: 05-22-2018 take 1 tablet by mouth once daily Calcium Carbonate (Calcium 600) 600 mg calcium (1,500 mg) tablet Discontinued 600 mg PO daily June 22, 2017 1:00am May 22, 2018 3:21pm cefdinir 300 mg oral capsule (9 sources) Cephalosporin Antibacterial Start: 11-07-2024 End: 01-08-2025 take 2 capsules by mouth once daily Cefdinir 300 mg capsule Discontinued 600 mg PO DAILY November 07, 2024 12:00am January 08, 2025 5:24pm cephalexin 500 mg oral capsule (20 sources) Cephalosporin Antibacterial Start: 11-24-2023 End: 09-12-2024 take 1 capsule by mouth every twelve hours Cephalexin 500 mg capsule Discontinued 500 mg PO EVERY 12 HOURS 6 3 0 November 24, 2023 12:00am September 12, 2024 11:33am post-operative Start: 09-09-2020 End: 09-12-2020 take 1 capsule by mouth every twelve hours Cephalexin 500 MG capsule Discontinued 500 mg PO EVERY 12 HOURS 6 3 0 September 09, 2020 1:00am September 11, 2020 1:00am September 12, 2020 1:03am post-operative Start: 08-26-2020 End: 08-29-2020 take 1 capsule by mouth every twelve hours Cephalexin 500 MG capsule Discontinued 500 mg PO EVERY 12 HOURS 6 3 0 August 26, 2020 1:00am August 28, 2020 1:00am August 29, 2020 1:03am post-operative ciprofloxacin 500 mg oral tablet (20 sources) Quinolone Antimicrobial Start: 05-22-2018 End: 05-25-2018 take 1 tablet by mouth twice daily Ciprofloxacin Hcl (Cipro) 500 mg tablet Discontinued 500 mg PO TWICE A DAY 6 3 0 May 22, 2018 1:00am May 24, 2018 1:00am May 25, 2018 1:09am citalopram 10 mg oral tablet (20 sources) Serotonin Reuptake Inhibitor Start: 08-25-2021 End: 01-31-2025 take 1 tablet by mouth once daily Citalopram 10 mg Tablet Discontinued 10 mg PO DAILY 30 0 November 07, 2024 12:00am January 31, 2025 12:44pm Comment on above: Take 1 tablet by [facility] once daily. Take 10 mg by mouth once daily. Take 1 tablet by [facility] once daily. Per psych, Dr. Negrete 12 hr dextromethorphan hydrobromide 60 mg / guaiFENesin 1200 mg extended release oral tablet (8 sources) Uncompetitive A-ffgzfi-F-aspartat e Receptor Antagonist, Sigma-1 Agonist Start: 01-11-2025 End: 01-31-2025 take 60-1200 mg by mouth every twelve hours Dextromethorphan-G uaifenesin (Mucinex Dm) 60-1,200 mg tablet extended release 12 hr Discontinued 1 {tbl} PO Q12H 14 7 0 January 11, 2025 12:00am January 31, 2025 12:44pm Start: 01-11-2025 End: 01-31-2025 docosahexaenoic acid 120 mg / eicosapentaenoic acid 180 mg oral capsule (20 sources) End: 11-14-2023 take 1 capsule by mouth once daily Docosahexanoic Acid-Eicosapent (FISH OIL) 120-180 mg capsule Take 2 g by mouth once daily. 0 11/14/2023 Discontinued Comment on above: Take 2 g by mouth on ce daily. docosahexaenoic acid 144 mg / eicosapentaenoic acid 216 mg / vitamin e 2 unt oral capsule (15 sources) Start: 03-04-2023 End: 11-07-2024 [place]-3 Fatty Acids-Fish Oil (Fish Oil) 360-1,200 mg capsule Discontinued 1 NMA PO TWICE A DAY March 04, 2023 12:00am November 07, 2024 4:43pm Joints Start: 03-04-2023 End: 11-07-2024 Start: 03-04-2023 take 1 capsule by mouth once d aily [place]-3 Fatty Acids-Fish Oil (Fish Oil) 360-1,200 mg capsule Active 1 CAP PO DAILY March 04, 2023 12:00am docusate sodium 50 mg / sennosides, longterm 8.6 mg oral tablet (9 sources) Start: 11-14-2024 End: 01-08-2025 Sennosides-Docusate Sodium ( Senna With Docusate Sodium) 8.6-50 mg tablet Discontinued 1 NMA PO DAILY 14 14 0 November 14, 2024 12:00am January 08, 2025 5:24pm Start: 11-14-2024 End: 01-08-2025 24 hr fesoterodine fumarate 4 mg extended release oral tablet (20 sources) Start: 2025 End: 01-31-2025 take 1 tablet by mouth once daily Fesoterodine 4 mg tablet extended release 24 hr Discontinued 4 mg PO DAILY 2025 12:00am January 31, 2025 12:45pm Start: 11-14-2024 End: 01-08-2025 take 1 tablet by mouth once daily, then take 1 tablet by mouth every twenty-four hours Fesoterodine (Fesoterodine 4 Mg Tablet,Extended Release 24 Hr) 4 mg tablet extended release 24 hr Discontinued 4 mg PO DAILY November 14, 2024 12:00am January 08, 2025 5:24pm Start: 11-04-2024 End: 11-07-2024 take 1 tablet by mouth once daily Fesoterodine (Toviaz) 4 mg tablet extended release 24 hr Discontinued 4 mg PO DAILY November 04, 2024 12:00am November 07, 2024 4:42pm urine fludrocortisone acetate 0.1 mg oral tablet (20 sources) Start: 10-03-2014 End: 01-17-2025 take 1 tablet by mouth once daily Fludrocortisone 0.1 mg tablet Discontinued 0.1 mg PO daily June 22, 2017 1:00am November 18, 2023 11:24am Comment on above: Take 1 tablet by [facility] once daily. Take 1 tablet by [facility] once daily. Per Neuro, Dr. Calderón 60 actuat formoterol fumarate 0.005 mg/actuat / mometasone furoate 0.1 mg/actuat metered dose inhaler (2 sources) Corticosteroi d, beta2-Adrener gic Agonist Start: 05-14-2021 End: 10-14-2021 take 2 puff(s) by inhalation twice daily mometasone-formotero l (DULERA) 100-5 mcg/actuation inhaler Inhale 2 Puffs as instructed twice daily. 13 g 5 05/14/2021 10/14/2021 Discontinued Start: 11-20-2020 End: 05-14-2021 take 2 puff(s) by inhalation twice daily mometasone-formoterol (DULERA) 100-5 mcg/actuation inhaler Inhale 2 Puffs as instructed twice daily. 1 Inhaler 5 11/20/2020 05/14/2021 Discontinued Comment on above: Inhale 2 Puffs as in structed twice daily. furosemide 20 mg oral tablet (20 sources) Loop Diuretic Start: End: take 1 tablet by mouth twice daily Furosemide 20 mg tablet Discontinued 20 mg PO TWICE A DAY November 18, 2023 12:00am September 21, 2024 1:57pm Diuretic Start: 02-15-2022 End: 11-14-2023 furosemide (LASIX) 20 mg tab let Take 1 tablet by mouth two times a day. Per Rajani Goins: cadio 0 11/14/2023 Active Start: 12-06-2021 End: 02-12-2022 take 1 tablet by mouth once furosemide (LASIX) 20 mg t ablet Take 1 tablet by mouth once daily. Per camacho Fish 30 tablet 1 12/07/2021 02/12/2022 Discontinued Start: 09-07-2021 End: 03-04-2023 take 1 tablet by mouth twice daily Furosemide 20 mg Tablet Discontinued 20 mg PO TWICE DAILY 0 0 September 07, 2021 1:00am March 04, 2023 11:24am Comment on above: Take 1 tablet by spencer [facility] twice daily. Take 20 mg by mouth twice daily. Take 1 tablet by spencer [facility] twice daily. Per camacho, Fish Take 1 tablet by spencer [facility] once daily. Per cardio, Fish Take 1 tablet by spencer [facility] once daily. Take 1 tablet by spencer [facility] two times a day. Per Rajani Goins hydrocortisone 25 mg/ml topical cream (20 sources) Corticosteroid Start: 021 End: apply 15 g rectal route twice daily hydrocortisone (ANUSOL-HC) 2.5 % rectal cream by RECTAL route twice daily. 15 g 1 05/29/2021 09/27/2023 Discontinued Comment on above: by RECTAL route twic e daily. hydrOXYzine hydrochloride 25 mg oral tablet (16 sources) Antihistamine Start: 023 End: take 1 tablet by mouth three times daily as needed Hydroxyzine Hcl 25 mg tablet Discontinued 25 mg PO THREE TIMES A DAY as needed for itching 14 0 December 01, 2022 12:00am November 18, 2023 11:24am 12 hr hyoscyamine sulfate 0.375 mg extended release oral tablet (20 sources) Start: 025 End: take 1 tablet by mouth every twelve hours Hyoscyamine Sulfate 0.375 mg tablet extended release 12 hr Discontinued PO November 14, 2024 12:00am January 08, 2025 5:24pm Start: 01-14-2014 End: 01-08-2025 take 1 tablet by mouth twice daily Hyoscyamine Sulfate (Oscimin Sr) 0.375 mg tablet extended release 12 hr Discontinued 0.375 mg PO TWICE A DAY June 22, 2017 1:00am September 21, 2024 1:31pm Comment on above: Take 1 tablet by [facility] twice daily. Take 1 tablet by [facility] two times a day. 3 ml insulin lispro 100 unt/ml pen injector (20 sources) Insulin Analog Start: 09-07-2021 End: 03-04-2023 Insulin Lispro (Humalog Kwikpen Insulin) 100 unit/mL Insulin Pen Discontinued 0 U SC BEFORE MEALS AND AT BEDTIME Protocol: - Use for Total Daily Dose of Insulin 37-55 units- Obsese, infected, or steroid patientsMEDIUM DOSING ALGORITHIM Condition: 150-189 mg/dl = 1 unit Condition: 190-229 mg/dl = 2 units Condition: 230-269 mg/dl = 3 units Condition: 270-309 mg/dl = 4 units Condition: 310-349 mg/dl = 5 units Condition: 350-399 mg/dl = 6 units Condition: 400-449 mg/dl = 7 units Condition: Greater than 449 call physician 0 0 September 07, 2021 1:00am March 04, 2023 11:24am Please contact the information source for Protocol details. Start: 09-07-2021 End: 03-04-2023 Insulin Lispro (Humalog Kwik pen Insulin) 100 unit/mL Insulin Pen Discontinued 0 U SC BEFORE MEALS AND AT BEDTIME 0 0 September 07, 2021 1:00am March 04, 2023 11:24am Please contact the information source for Protocol details. End: 10-14-2021 inject 3 [IU] by subcutaneous injection three times daily before mealtime insulin lispro (HUMALOG KWIKPEN) 100 unit/mL pen Inject subcutaneously three times daily before meals. Inject as per sliding scale: If 150 - 189 = 1 unit; 190 - 229 = 2 units; 230 -269 = 3 units; 270 - 309 = 4 units; 310 - 349 = 5 units; 350 - 399 = 6 units; 400 - 449 = 7 units > call Physician, subcutaneously three times a day for DM 0 10/14/2021 Discontinued Comment on above: Inject as per sliding scale: If 150 - 18 9 = 1 unit; 190 - 229 = 2 units; 230 -269 = 3 units; 270 - 309 = 4 units; 310 - 349 = 5 units; 350 - 399 = 6 units; 400 - 449 = 7 units > call Physician, subcutaneously three times a day for DM Inject subcutaneousl y three times daily before meals. Inject as per sliding scale: If 150 - 189 = 1 unit; 190 - 229 = 2 units; 230 -269 = 3 units; 270 - 309 = 4 units; 310 - 349 = 5 units; 350 - 399 = 6 units; 400 - 449 = 7 units > call Physician, subcutaneously three times a day for DM insulin lispro (HUMALOG KWIKPEN) 100 unit/mL (8 sources) Start: 10-15-19 End: 10-22-19 inject 3 [IU] by subcutaneous injection once daily insulin lispro (HUMALOG KWIKPEN) 100 unit/mL Inject as per sliding scale: If 150 - 189 = 1 unit; 190 - 229 = 2 units; 230 -269 = 3 units; 270 - 309 = 4 units; 310 - 349 = 5 units; 350 - 399 = 6 units; 400 - 449 = 7 units > call Physician, subcutaneously three times a day for DM 5 Pen 1 10/14/2021 10/21/2022 Discontinued Start: 10-14-2021 inject 3 [IU] by sub cutaneous injection once daily insulin lispro (HUMALOG KWIKPEN) 100 unit/mL Inject as per sliding scale: If 150 - 189 = 1 unit; 190 - 229 = 2 units; 230 -269 = 3 units; 270 - 309 = 4 units; 310 - 349 = 5 units; 350 - 399 = 6 units; 400 - 449 = 7 units > call Physician, subcutaneously three times a day for DM 5 Pen 1 10/14/2021 Active Comment on above: Inject as per slidin g scale: If 150 - 189 = 1 unit; 190 - 229 = 2 units; 230 -269 = 3 units; 270 - 309 = 4 units; 310 - 349 = 5 units; 350 - 399 = 6 units; 400 - 449 = 7 units > call Physician, subcutaneously three times a day for DM levoFLOXacin 500 mg oral tablet (12 sources) Quinolone Antimicrobial Start: 01-12-20 End: 03-05-20 take 1 tablet by mouth once daily Levofloxacin 500 mg tablet Discontinued 500 mg PO daily 5 5 0 February 28, 2025 12:00am March 04, 2025 12:00am March 05, 2025 12:10am melatonin 10 mg oral capsule (20 sources) Start: 10-01-19 melatonin 10 mg oral tablet Dose : 10 mg = 1 tab(s), Oral, qHS, PRN as needed for insomnia, # 200 tab(s), 0 Refill(s) Start Date: 09/30/21 Status: Ordered Start: 10-27-2016 End: 09-12-2024 take 1 capsule by mouth at bedtime as needed for sleep Melatonin 10 mg capsule Discontinued 10 mg PO BEDTIME as needed for Sleep June 22, 2017 1:00am September 12, 2024 11:34am End: 01-17-2025 melatonin (MELATIN ORAL) Dustin e by mouth as directed. 01/17/2025 Discontinued melatonin (OTTO IN ORAL) Take by mouth as directed. Active melatonin (OTTO IN ORAL) Take by mouth as directed. 0 Active Comment on above: Take 1 capsule by mo uth daily at bedtime. Take 1 capsule by mo uth daily at bedtime. Per Dr. Stone Take 1 capsule by mo uth daily at bedtime. Per Neuro, Dr. Calderón Take by mouth as dir ected. menthol 0.05 mg/mg topical gel (1 source) Start: 0 End: 1 menthol (BENGAY COLD THERAPY) 5 % gel Apply to affected area four times daily as needed. 120 g 1 11/08/2019 05/29/2021 Discontinued metFORMIN hydrochloride 500 mg oral tablet (20 sources) Biguanide Start: 4 End: 3 take 1 tablet by mouth once daily Metformin 500 mg tablet Discontinued 500 mg PO DAILY June 22, 2017 1:00am March 04, 2023 11:24am Comment on above: Take 1 tablet by spencer [facility] daily with breakfast. metoprolol tartrate 25 mg oral tablet (20 sources) beta-Adrenergic Viri Start: 7 End: 4 take 1 tablet by mouth twice daily Metoprolol Tartrate 25 mg Tablet Discontinued 25 mg PO TWICE A DAY 0 0 September 07, 2021 1:00am November 18, 2023 11:25am On Hold: Order Changed Comment on above: Take 1 tablet by spencer th twice daily. Take 1 tablet by spencer th twice daily. Per Cardio, Fish midodrine hydrochloride 10 mg oral tablet (20 sources) alpha-Adrenergic Agonist Start: 5 End: 5 take 1 tablet by mouth three times daily at mealtime Midodrine 10 mg tablet Discontinued 10 mg PO 3 TIMES DAILY WITH MEALS 90 30 0 January 11, 2025 12:00am January 31, 2025 12:47pm 24 hr mirabegron 50 mg extended release oral tablet (20 sources) beta3-Adrenergic Agonist Start: 1 End: 4 take 1 tablet by mouth once daily Mirabegron 50 MG tablet extended release 24 hr Discontinued 25 mg PO DAILY August 19, 2020 1:00am November 18, 2023 11:25am On Hold: Order Changed Start: 02-27-2019 End: 11-18-2023 take 1 tablet by mouth once daily Mirabegron 50 MG tablet extended release 24 hr Discontinued 25 mg PO DAILY August 19, 2020 1:00am November 18, 2023 11:25am On Hold: Order Changed Comment on above: Take 1 tablet by spencer th once daily. Take 1 tablet by spencer th once daily. Per urology Dr. Alba multivitamin (DAILY-JG) tablet (20 sources) Start: 1 End: 3 take 1 tablet by mouth once daily in the morning multivitamin (DAILY-JG) tablet Take 1 tablet by mouth every morning. 30 tablet 5 05/14/2021 10/21/2022 Discontinued Start: 05-14-2021 take 1 tablet by spencer th once daily in the morning multivitamin (DAILY-JG) tablet Take 1 tablet by mouth every morning. 30 tablet 5 05/14/2021 Active Start: 11-20-2020 End: 05-14-2021 take 1 tablet by mouth once daily in the morning multivitamin (DAILY-JG) tablet Take 1 tablet by mouth every morning. 30 tablet 5 11/20/2020 05/14/2021 Discontinued Comment on above: Take 1 tablet by spencer th every morning. Multivitamin With Folic Acid (9 sources) Start: 5 End: 7 take 1 tablet by mouth once daily Multivitamin With Folic Acid Discontinued 1 TABLET PO DAILY October 03, 2014 1:16pm June 22, 2017 2:44pm Start: 10-03-2014 End: 06-22-2017 take 1 tablet by mouth once daily Multivitamin With Folic Acid Discontinued 1 TABLET PO DAILY October 02, 2014 11:00pm June 22, 2017 1:44pm Start: 10-03-2014 End: 06-22-2017 take 1 tablet by mouth once daily Multivitamin With Folic Acid Discontinued 1 TABLET PO DAILY October 03, 2014 12:00am June 22, 2017 2:44pm Multivitamin With Folic Acid 1 TABLET tablet (5 sources) Start: 10-03-2014 End: 06-22-2017 take 1 tablet by mouth once daily Multivitamin With Folic Acid 1 TABLET tablet Discontinued 1 {tbl} PO DAILY October 03, 2014 12:00am June 22, 2017 2:44pm Start: 10-03-2014 End: 06-22-2017 take 1 tablet by mouth once daily Multivitamin With Folic Acid 1 TABLET tablet Discontinued 1 {tbl} PO DAILY October 02, 2014 11:00pm June 22, 2017 1:44pm Drug Treatment Unknown - unknown (3 sources) No information available. nystatin [id number] unt/ml topical cream (1 source) Polyene Antifungal Start: 1 End: 1 nystatin (MYCOSTATIN) cream Apply 1 application to affected area twice daily. 45 g 2 11/20/2020 02/18/2021 omega-3 fatty acids 1,000 mg cap (20 sources) Start: 8 End: 5 take 2 capsules by mouth once daily omega-3 fatty acids 1,000 mg cap Take 2 capsules by mouth once daily. 11/02/2017 01/17/2025 Discontinued Start: 11-02-2017 take 2 capsules by m outh once daily omega-3 fatty acids 1,000 mg cap Take 2 capsules by mouth once daily. 11/02/2017 Active Start: 11-02-2017 take 2 capsules by m outh once daily omega-3 fatty acids 1,000 mg cap Take 2 capsules by mouth once daily. 0 11/02/2017 Active Comment on above: Take 2 capsules by m outh once daily. 24 hr oxybutynin chloride 15 mg extended release oral tablet (20 sources) Cholinergic Muscarinic Antagonist Start: 1 End: 2 take 1 tablet by mouth once daily oxybutynin ER (DITROPAN XL) 15 mg 24 hr Extended Rel Tab Take 1 tablet by mouth once daily. 30 tablet 5 05/14/2021 10/14/2021 Discontinued (Duplicate Entry) Start: 08-13-2015 take 1 tablet by spencer th every hour, then take 1 tablet by mouth once daily oxybutynin 15 mg/24 hr oral tablet, extended release Dose : 15 mg = 1 tab(s), Oral, qDay, # 30 tab(s), 0 Refill(s) Start Date: 08/13/15 Status: Ordered Start: 01-14-2014 End: 06-22-2017 take 10 mg by mouth once daily Oxybutynin Chloride 10 MG tablet extended release 24 hr Discontinued 15 mg PO DAILY January 14, 2014 12:00am June 22, 2017 2:44pm Start: 01-14-2014 End: 06-22-2017 take 15 mg by mouth once daily Oxybutynin Chloride Dis continued 15 MG PO DAILY January 14, 2014 12:00am June 22, 2017 2:44pm Comment on above: Take 1 tablet by spencer th once daily. pantoprazole 40 mg delayed release oral tablet (9 sources) Proton Pump Inhibitor Start: 5 End: 5 take 1 tablet by mouth once daily Pantoprazole 40 mg Tablet,Delayed Release (Dr/Ec) Discontinued 40 mg PO DAILY 30 0 November 07, 2024 12:00am January 08, 2025 5:23pm polyethylene glycol 3350 11371 mg powder for oral solution (20 sources) Osmotic Laxative Start: 9 End: 1 polyethylene glycol 3350 (MIRALAX) 17 gram/dose powder Take 17 g daily as needed for constipation 1 Bottle 1 09/18/2018 05/29/2021 Discontinued Start: 06-22-2017 End: 05-22-2018 take 17 g by mouth once daily as needed Polyethylene Glycol 3350 17 gram/dose powder Discontinued 17 g PO daily as needed June 22, 2017 1:00am May 22, 2018 3:22pm promethazine hydrochloride 25 mg oral tablet (20 sources) Phenothiazine Start: 06-27-2018 End: 10-14-2021 take 1 tablet by mouth every four hours as needed promethazine (PHENERGAN) 25 mg tablet Take 1 tablet by mouth every 4 hours as needed. Per Neurology Dr. Stone 06/27/2018 10/14/2021 Discontinued Start: 06-22-2017 End: 05-22-2018 take 1 tablet by mouth every six hours as needed Promethazine 25 mg tablet Discontinued 25 mg PO EVERY 6 HOURS as needed June 22, 2017 1:00am May 22, 2018 3:23pm Start: 06-22-2017 End: 05-22-2018 Comment on above: Take 1 tablet by spencer th every 4 hours as needed. Per Neurology Dr. Stone rimegepant 75 mg disintegrating oral tablet (20 sources) Start: 10-05-19 End: 01-18-20 take 1 tablet by mouth once daily as needed rimegepant (NURTEC ODT) 75 mg disintegrating tablet Take 1 tablet by mouth once daily as needed. Per Neuro, not on as of 11/16/2023 11/17/2023 01/17/2025 Discontinued Comment on above: Take 1 tablet by spencer th once daily as needed. rizatriptan 10 mg oral tablet (20 sources) Serotonin-1b and Serotonin-1d Receptor Agonist Start: 08-25-19 End: 09-12-19 take 1 tablet by mouth once daily as needed for headache Rizatriptan 10 mg Tablet Discontinued 10 mg PO DAILY as needed for migraine headache 0 0 September 07, 2021 11:50am September 12, 2024 11:35am Start: 05-23-2018 End: 10-21-2022 take 1 tablet by mouth every two hours, then take 2 tablets by mouth every twenty-four hours rizatriptan (MAXALT) 10 mg tablet Take 1 tablet by oral route every 2 hours no more than 2 in 24 hours 05/23/2018 10/14/2021 Discontinued Comment on above: Take 1 tablet by ora l route every 2 hours no more than 2 in 24 hours sodium chloride 0.154 meq/ml nasal solution (20 sources) Start: 10-14-2021 End: 10-21-2022 sodium chloride 0.9 % soln Use 2 Sprays in the nose every 6 hours as needed. 15 mL 1 10/14/2021 10/21/2022 Discontinued Start: 09-07-2021 End: 03-04-2023 Sodium Chloride ([place]) 0.65 % Aerosol,[place] Discontinued 2 NMA NASAL 3 TIMES DAILY NEEDED as needed for NASAL DRYNESS 0 0 September 07, 2021 1:00am March 04, 2023 11:23am Start: 09-07-2021 End: 03-04-2023 Sodium Chloride ([place]) 0.65 % Aerosol,[place] Discontinued 2 SPRAY NASAL 3 TIMES DAILY NEEDED 0 September 07, 2021 1:00am March 04, 2023 11:23am Comment on above: Use 2 Sprays in the nose every 6 hours as needed. spironolactone 25 mg oral tablet (20 sources) Aldosterone Antagonist Start: 12-01-19 End: 03-26-20 take 1 tablet by mouth once daily Spironolactone 25 mg tablet Discontinued 25 mg PO DAILY November 14, 2024 12:00am January 08, 2025 5:24pm Start: 12-01-2015 End: 06-22-2017 Spironolactone 25 MG tablet Discontinued 12.5 mg PO DAILY December 01, 2015 12:00am June 22, 2017 2:43pm Start: 12-01-2015 End: 09-12-2024 take 0.5 tablet by mouth once daily spironolactone (ALDACTONE) 25 mg tablet Take 0.5 tablets by mouth once daily. 45 tablet 3 10/11/2018 10/14/2021 Discontinued Start: 12-01-2015 End: 06-22-2017 take 12.5 mg by mouth once daily Spironolactone Discontinued 12.5 MG PO DAILY December 01, 2015 12:00am June 22, 2017 2:43pm Comment on above: Take 1 tablet by spencer th once daily. Take 0.5 tablets by mouth once daily. Take 1 tablet by spencer th once daily. Per Rajani Goins tiotropium 0.018 mg inhalation powder (20 sources) Anticholinergic Start: 01-14-2014 End: 06-22-2017 Tiotropium [place] 1 PUFF inhaler Discontinued 1 NMA INHALATION DAILY January 14, 2014 12:00am June 22, 2017 2:44pm Start: 01-14-2014 End: 06-22-2017 Start: 01-14-2014 End: 06-22-2017 take 1 puff(s) by inhalation once daily Tiotropium [place] Discontinued 1 PUFF INHALATION DAILY January 14, 2014 12:00am June 22, 2017 2:44pm topiramate 25 mg oral tablet (20 sources) Start: 08-25-2021 End: 03-04-2023 take 1 tablet by mouth twice daily Topiramate (Topamax) 25 mg Tablet Discontinued 25 mg PO TWICE A DAY August 25, 2021 1:00am March 04, 2023 11:25am Comment on above: Take 1 tablet by spencer th twice daily. Take 25 mg by mouth twice daily. Take 1 tablet by spencer th twice daily. Per Neurology, Dr. Calderón traZODone hydrochloride 100 mg oral tablet (20 sources) Serotonin Reuptake Inhibitor Start: 11-18-2023 End: 11-07-2024 take 2 tablets by mouth at bedtime as needed for sleep Trazodone 100 mg tablet Discontinued 200 mg PO AT BEDTIME as needed for Sleep November 04, 2024 12:00am November 07, 2024 4:44pm Start: 11-18-2023 take 200 mg by mouth at bedtim e Trazodone Active 200 MG PO AT BEDTIME November 18, 2023 12:00am Start: 06-22-2017 End: 09-07-2021 take 200 mg by mouth at bedtime Trazodone Discontinued 200 MG PO AT BEDTIME June 22, 2017 1:00am September 07, 2021 11:43am Start: 12-03-2015 End: 10-14-2021 take 2 tablets by mouth at bedtime as needed for sleep Trazodone 100 mg tablet Discontinued 200 mg PO AT BEDTIME as needed for Sleep June 22, 2017 1:00am September 07, 2021 11:43am Start: 08-13-2015 End: 11-07-2024 traZODone (DESYREL) 100 mg t ablet 1 tablet daily at bedtime. Per psych: Dr. Alvarez, not on as of 11/16/2023 11/17/2023 Active Start: 01-14-2014 End: 06-22-2017 Trazodone 150 MG tablet Disc ontinued 200 mg PO AT BEDTIME January 14, 2014 12:00am June 22, 2017 2:45pm Start: 01-14-2014 End: 06-22-2017 Start: 01-14-2014 End: 06-22-2017 take 200 mg by mouth at bedtime Trazodone Discontinued 200 MG PO AT BEDTIME January 14, 2014 12:00am June 22, 2017 2:45pm Comment on above: Take 1-2 tabs before bed prn daily at bedtime. trolamine salicylate 100 mg/ml topical lotion (2 sources) End: 10-14-2021 Trolamine Salicylate (ASPERCREME) 10 % lotn Apply to affected area. 10/14/2021 Discontinued Comment on above: Apply to affected ar ea. Vitamin B Complex (B Complex-Vitamin B12) tablet (9 sources) Start: 03-04-2023 End: 09-21-2024 Vitamin B Complex (B Complex-Vitamin B12) tablet Discontinued 1 {tbl} PO TWICE A DAY March 04, 2023 12:00am September 21, 2024 1:32pm General health Start: 03-04-2023 End: 09-21-2024 Vitamin B Complex (B Complex -Vitamin B12) tablet Discontinued 1 {tbl} PO TWICE A DAY March 04, 2023 12:00am September 21, 2024 1:32pm Start: 03-04-2023 End: 09-21-2024 Vitamin B Complex (B Complex -Vitamin B12) tablet Discontinued 1 {tbl} PO TWICE A DAY March 03, 2023 11:00pm September 21, 2024 12:32pm Start: 03-04-2023 take 1 tablet by spencer th twice daily Vitamin B Complex (B Complex-Vitamin B12) tablet Active 1 TABLET PO TWICE A DAY March 04, 2023 12:00am Start: 03-04-2023 take 1 tablet by spencer th once daily Vitamin B Complex (B Complex-Vitamin B12) tablet Active 1 TABLET PO DAILY March 04, 2023 12:00am vitamin b12 0.5 mg oral tablet (20 sources) Vitamin B12 Start: 07-16-2022 End: 01-17-2025 take 1 tablet by mouth once daily cyanocobalamin (VITAMIN B-12) 500 mcg tablet Take 1 tablet by mouth once daily. not on as of 11/16/2023 11/17/2023 01/17/2025 Discontinued Comment on above: Take 1 tablet by mouth once daily. Problems Active Problems Problem Classification Problem Date Documented Da te Episodic/Chronic Acute and unspecified renal failure (17 sources) [id number] renal failure; Translations: [Acute kidney failure, unspecified] 01-08-2025 Episodic Acute cerebrovascular disease (17 sources) Cerebrovascular accident; Translations: [Cerebral infarction, unspecified] Onset: 5 09-12-2024 Chronic Administrative/social admission (11 sources) Homeless; Translations: [Homeless] Onset: 5 11-20-2024 Episodic Allergic reactions (20 sources) Urticaria; Translations: [Urticaria, unspecified] Onset: 4 05-21-2019 Episodic Asthma (20 sources) Asthma-chronic obstructive pulmonary disease overlap syndrome; Translations: [Chronic obstructive airway disease with asthma] Onset: 5 07-01-2020 Chronic Comment on above: FEV1 69% Blindness and vision defects (5 sources) Presbyopia; Translations: [Presbyopia] Onset: 5 Episodic Cardiac dysrhythmias (20 sources) Paroxysmal atrial fibrillation; Translations: [Paroxysmal atrial fibrillation] Onset: 2 Chronic Cardiac dysrhythmias (17 sources) ECG: sinus tachycardia; Translations: [Tachycardia, unspecified] 01-08-2025 Episodic Cataract (3 sources) Nuclear sclerosis; Translations: [Age-related nuclear cataract, bilateral] Onset: 5 Chronic Chronic kidney disease (20 sources) Chronic kidney disease stage 3B ; Translations: [Stage 3b chronic kidney disease] Onset: 1 11-24-2020 Chronic Chronic kidney disease (3 sources) Chronic kidney disease; Translations: [Stage 3b chronic kidney disease (HCC)] Onset: 2 Chronic obstructive pulmonary disease and bronchiectasis (20 sources) Chronic obstructive lung disease; Translations: [Chronic obstructive pulmonary disease, unspecified] Onset: 5 Chronic Chronic ulcer of skin (20 sources) Pressure ulcer of sacral region, stage 2; Translations: [Pressure ulcer, lower back] Onset: 5 01-25-2025 Chronic Congestive heart failure; nonhypertensive (1 source) Diastolic dysfunction 08-10-2019 Chronic Coronary atherosclerosis and other heart disease (20 sources) Coronary arteriosclerosis; Translations: [Atherosclerotic heart disease of [place] coronary artery without angina pectoris] Onset: 5 10-27-2017 Chronic Comment on above: 2011 Diabetes mellitus with complications (20 sources) Diabetic foot; Translations: [Type 2 diabetes mellitus with unspecified complications] Onset: 4 10-27-2016 Chronic Diabetes mellitus without complication (20 sources) Type 2 diabetes mellitus without complication; Translations: [Type 2 diabetes mellitus without complications] Onset: 5 Chronic Diabetes mellitus without complication (10 sources) Acute hyperglycemia; Translations: [Hyperglycemia, unspecified] 11-04-2024 Episodic Diabetes mellitus without complication (1 source) Diabetes mellitus without complication; Translations: [Type 2 diabetes mellitus with stage 3b chronic kidney disease, without long-term current use of insulin (HCC)] Onset: 4 Disorders of lipid metabolism (20 sources) Mixed hyperlipidemia; Translations: [Mixed hyperlipidemia] Onset: 4 04-25-2015 Chronic E Codes: Fall (20 sources) Fall; Translations: [Unspecified fall, initial encounter] 12-01-2015 Episodic Esophageal disorders (20 sources) Gastroesophageal reflux disease without esophagitis; Translations: [Gastro-esophageal reflux disease without esophagitis] Onset: 5 Chronic Fever of unknown origin (17 sources) Body temperature above reference range; Translations: [Fever, unspecified] 01-08-2025 Episodic Fluid and electrolyte disorders (20 sources) Hypokalemia; Translations: [Hypokalemia] Onset: 5 07-23-2014 Episodic Genitourinary symptoms and ill-defined conditions (20 sources) Urinary incontinence; Translations: [Unspecified urinary incontinence] Onset: 7 Resolved: 2 11-29-2019 Chronic Comment on above: recommend urogynecol ogist Headache; including migraine (20 sources) Migraine without aura, not refractory ; Translations: [Migraine without aura, not intractable, without status migrainosus] Onset: 7 03-12-2020 Chronic Inflammation; infection of eye (except that caused by tuberculosis or sexually transmitteddisease) (1 source) Hordeolum externum of lower eyelid of right eye; Translations: [Hordeolum externum right lower eyelid] Episodic Menopausal disorders (3 sources) Postmenopausal bleeding; Translations: [Postmenopausal bleeding] Onset: 7 04-26-2017 Chronic Miscellaneous mental health disorders (20 sources) Chronic insomnia; Translations: [Psychophysiologic insomnia] Onset: 0 03-12-2020 Chronic Mood disorders (20 sources) Bipolar disorder; Translations: [Bipolar disorder, unspecified] Onset: 5 07-13-2021 Chronic Mycoses (3 sources) Onychomycosis; Translations: [Tinea unguium] Episodic Other aftercare (20 sources) Patient encounter status; Translations: [Other jail (current) drug therapy] Onset: 7 11-20-2020 Episodic Other aftercare (1 source) 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; Translations: [[facility] (current) use of anticoagulants] 05-08-2025 Episodic Other aftercare (1 source) Encounter for follow-up examination after completed treatment for conditions other than malignant neoplasm; Translations: [Encounter for follow-up examination after completed treatment for conditions other than malignant neoplasm] Onset: 5 Episodic Other circulatory disease (20 sources) Low blood pressure; Translations: [Hypotension, unspecified] Onset: 4 03-12-2020 Episodic Other circulatory disease (2 sources) Abnormal peripheral pulse; Translations: [Other specified symptoms and signs involving the circulatory and respiratory systems] Episodic Other connective tissue disease (3 sources) Pain of toe of left foot; Translations: [Pain in left toe(s)] Episodic Other connective tissue disease (3 sources) Pain of toe of right foot; Translations: [Pain in right toe(s)] Episodic Other connective tissue disease (1 source) Adhesive capsulitis of left shoulder; Translations: [Adhesive capsulitis of left shoulder] Onset: 5 Episodic Other diseases of bladder and urethra (8 sources) Overactive bladder; Translations: [Overactive bladder] 03-11-2025 Chronic Other diseases of kidney and ureters (20 sources) Chronic renal insufficiency; Translations: [Disorder of kidney and ureter, unspecified] 08-25-2021 Episodic Other diseases of kidney and ureters (1 source) Disorder of kidney and ureter, unspecified; Translations: [Unspecified disorder of kidney and ureter] Episodic Other eye disorders (2 sources) Meibomian gland dysfunction of bilateral eyes; Translations: [Meibomian gland dysfunction right eye, upper and lower eyelids] Episodic Other eye disorders (1 source) Meibomian gland dysfunction right eye, upper and lower eyelids; Translations: [Meibomian gland dysfunction (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 eyes] Onset: 5 Episodic Other eye disorders (1 source) Meibomian gland dysfunction left eye, upper and lower eyelids; Translations: [Meibomian gland dysfunction (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 eyes] Onset: 5 Episodic Other gastrointestinal disorders (20 sources) Irritable bowel syndrome; Translations: [Mixed irritable bowel syndrome] Onset: 7 Chronic Other gastrointestinal disorders (1 source) Dysphagia; Translations: [Dysphagia, unspecified] Episodic Other gastrointestinal disorders (1 source) Oropharyngeal dysphagia; Translations: [Dysphagia, oropharyngeal phase] Episodic Other gastrointestinal disorders (9 sources) Constipation; Translations: [Constipation, unspecified] 11-22-2024 Episodic Other hereditary and degenerative nervous system conditions (20 sources) Extrapyramidal disease; Translations: [Extrapyramidal and movement disorder, unspecified] Onset: 4 01-14-2014 Chronic Other hereditary and degenerative nervous system conditions (1 source) Movement disorder; Translations: [Extrapyramidal and movement disorder, unspecified] Onset: 2 Chronic Other hereditary and degenerative nervous system conditions (20 sources) Tardive dyskinesia; Translations: [Drug induced subacute dyskinesia] Onset: 0 03-12-2020 Episodic Other hereditary and degenerative nervous system conditions (3 sources) Drug induced subacute dyskinesia; Translations: [Tardive dyskinesia] Onset: 0 Episodic Other lower respiratory disease (20 sources) Interstitial pneumonia; Translations: [Interstitial pulmonary disease, unspecified] 09-15-2021 Chronic Other lower respiratory disease (1 source) Interstitial pulmonary disease, unspecified; Translations: [Other specified alveolar and parietoalveolar pneumonopathies] Chronic Other lower respiratory disease (1 source) H/O: pneumonia; Translations: [Personal history of pneumonia (recurrent)] Episodic Other lower respiratory disease (1 source) H/O: respiratory disease; Translations: [Personal history of other diseases of the respiratory system] Episodic Other lower respiratory disease (20 sources) Nodule of lung; Translations: [Solitary pulmonary nodule] Onset: 6 10-01-2018 Episodic Other lower respiratory disease (20 sources) Dyspnea; Translations: [Dyspnea, unspecified] 08-10-2019 Episodic Other lower respiratory disease (2 sources) Dyspnea, unspecified; Translations: [Other respiratory abnormalities] 03-04-2023 Episodic Other lower respiratory disease (1 source) Cough; Translations: [Subacute cough] 03-22-2024 Episodic Other lower respiratory disease (17 sources) History of chronic obstructive airway disease; Translations: [Personal history of other diseases of the respiratory system] 01-08-2025 Episodic Other nervous system disorders (20 sources) Chronic pain; Translations: [Other chronic pain] Onset: 4 10-27-2016 Chronic Other non-traumatic joint disorders (2 sources) Bilateral chronic pain of upper limbs; Translations: [Pain in right shoulder] 09-27-2023 Episodic Other non-traumatic joint disorders (1 source) Pain in left shoulder; Translations: [Pain in joint, shoulder region] 03-14-2025 Episodic Other nutritional; endocrine; and metabolic disorders (20 sources) Morbid obesity; Translations: [Morbid (severe) obesity due to excess calories] Onset: 7 10-27-2016 Chronic Other nutritional; endocrine; and metabolic disorders (20 sources) Body mass index 40+ - severely obese; Translations: [Morbid (severe) obesity due to excess calories] Onset: 4 07-01-2020 Chronic Other nutritional; endocrine; and metabolic disorders (4 sources) Morbid (severe) obesity due to excess calories; Translations: [Morbid obesity] Onset: 5 Chronic Other skin disorders (2 sources) Keratosis; Translations: [Epidermal thickening, unspecified] Episodic Other skin disorders (2 sources) Eruption; Translations: [Rash and other nonspecific skin eruption] Episodic Other skin disorders (9 sources) Broken skin; Translations: [Other skin changes] 11-20-2024 Episodic Other upper respiratory infections (20 sources) Upper respiratory infection; Translations: [Acute upper respiratory infection, unspecified] 07-02-2020 Episodic Peripheral and visceral atherosclerosis (9 sources) Peripheral vascular disease; Translations: [Peripheral vascular disease, unspecified] Onset: 5 2025 Chronic Prolapse of female genital organs (3 sources) Incomplete uterovaginal prolapse; Translations: [Incomplete uterovaginal prolapse] Onset: 7 04-26-2017 Chronic Residual codes; unclassified (20 sources) Family history of cardiac disorder; Translations: [Family history of ischemic heart disease and other diseases of the circulatory system] 07-01-2020 Episodic Residual codes; unclassified (20 sources) Altered mental status; Translations: [Altered mental status, unspecified] 11-04-2024 Episodic Residual codes; unclassified (7 sources) History of operative procedure on shoulder; Translations: [Other specified postprocedural states] 01-31-2025 Episodic Residual codes; unclassified (7 sources) History of operative procedure on elbow; Translations: [Other specified postprocedural states] 01-31-2025 Episodic Respiratory failure; insufficiency; arrest (adult) (17 sources) Acute hypoxemic respiratory failure; Translations: [Acute respiratory failure with hypoxia] 01-08-2025 Episodic Sprains and strains (20 sources) Low back strain; Translations: [Strain of muscle, fascia and tendon of lower back, initial encounter] 12-01-2015 Episodic Substance-related disorders (20 sources) Smoker; Translations: [Nicotine dependence, unspecified, uncomplicated] Onset: 1 11-20-2020 Chronic Comment on above: Ordered and due in [facility] 2022 1 PPD FOR 47 YRS Syncope (2 sources) Syncope and collapse; Translations: [Vasovagal syncope] 08-10-2019 Episodic Unclassified (2 sources) Screening mammography ; Translations: [Encounter for screening mammogram for malignant neoplasm of breast] Onset: 7 05-05-2017 Unclassified (3 sources) Gynecologic examination ; Translations: [Encounter for gynecological examination (general) (routine) with abnormal findings] Onset: 7 04-26-2017 Unclassified (1 source) Patient encounter status 12-18-2024 Unclassified (1 source) Left shoulder pain, unspecified chronicity 03-14-2025 Unclassified (2 sources) Appt will be with Taylor DILL. Unclassified (1 source) [facility]([phone]) will pick you up at 11-11:30, and will pick you up from [facility] at 1pm after the appt. Unclassified (1 source) Obesity, Class III, BMI 40-49.9 (morbid obesity) (HCC); Translations: [Obesity, Class III, BMI 40-49.9 (morbid obesity) (HCC)] Onset: 4 Unclassified (1 source) Homelessness unspecified; Translations: [Homelessness unspecified] Onset: 5 Unclassified (1 source) Obesity, Class III, BMI 40-49.9 (morbid obesity); Translations: [Obesity, Class III, BMI 40-49.9 (morbid obesity)] Onset: 4 Viral infection (15 sources) Disease caused by 2019-nCoV; Translations: [COVID-19] 09-12-2024 Episodic Viral infection (1 source) COVID-19; Translations: [COVID-19] Onset: 5 Past or Other Problems Problem Classification Problem Date Documented Da te Episodic/Chronic Abdominal pain (10 sources) Right lower quadrant pain; Translations: [Right lower quadrant pain] Onset: 11-20-2024 11-22-2024 Episodic Genitourinary symptoms and ill-defined conditions (20 sources) Urgent desire to urinate; Translations: [Urgency of urination] Onset: 11-14-2024 08-26-2020 Episodic Malaise and fatigue (20 sources) Physical deconditioning; Translations: [Other malaise] Onset: 04-02-2015 Episodic Nonspecific chest pain (20 sources) Chest pain; Translations: [Chest pain, unspecified] Onset: 02-14-2014 05-23-2018 Episodic Nutritional deficiencies (20 sources) Decreased vitamin B12 level; Translations: [Deficiency of other specified B group vitamins] Onset: 07-16-2022 07-16-2022 Episodic Open wounds of extremities (2 sources) Injury of left leg; Translations: [Unspecified open wound, left lower leg, subsequent encounter] Onset: 01-17-2025 01-17-2025 Episodic Other aftercare (19 sources) Drug therapy finding; Translations: [Other jail (current) drug therapy] Onset: 10-11-2017 10-11-2017 Episodic Other aftercare (1 source) Other jail (current) drug therapy; Translations: [Medication management] Onset: 11-20-2020 Episodic Other circulatory disease (20 sources) History of cerebrovascular accident; Translations: [Personal history of transient ischemic attack (TIA), and cerebral infarction without residual deficits] Onset: 04-25-2015 03-12-2020 Episodic Other circulatory disease (2 sources) Hypotension, unspecified; Translations: [Hypotension, unspecified] Onset: 03-12-2020 Episodic Other circulatory disease (1 source) Personal history of transient ischemic attack (TIA), and cerebral infarction without residual deficits; Translations: [History of CVA (cerebrovascular accident)] Onset: 03-12-2020 Episodic Other connective tissue disease (20 sources) Muscle weakness; Translations: [Muscle weakness (generalized)] Onset: 07-25-2018 Episodic Other connective tissue disease (20 sources) Myofascial pain; Translations: [Myalgia, other site] Onset: 04-16-2014 04-26-2016 Episodic Other connective tissue disease (20 sources) Trochanteric bursitis of left hip; Translations: [Trochanteric bursitis, left hip] Onset: 01-30-2021 01-30-2021 Episodic Other connective tissue disease (20 sources) Cramp in lower limb; Translations: [Cramp and spasm] Onset: 06-09-2022 Episodic Other connective tissue disease (20 sources) Disorder of rotator cuff; Translations: [Unspecified disorder of synovium and tendon, left shoulder] Onset: 11-29-2023 11-11-2023 Episodic Other connective tissue disease (1 source) Unspecified disorder of synovium and tendon, left shoulder; Translations: [Rotator cuff disorder, left] Onset: 11-29-2023 Episodic Other gastrointestinal disorders (20 sources) Incontinence of feces; Translations: [Full incontinence of feces] Onset: 07-08-2017 07-08-2017 Episodic Other lower respiratory disease (3 sources) Solitary pulmonary nodule; Translations: [Solitary pulmonary nodule] Onset: 10-01-2018 03-04-2023 Episodic Other lower respiratory disease (1 source) Other forms of dyspnea; Translations: [Other forms of dyspnea] Onset: 01-31-2025 Episodic Other non-traumatic joint disorders (20 sources) Hip pain; Translations: [Pain in left hip] Onset: 01-30-2021 01-30-2021 Episodic Other screening for suspected conditions (not mental disorders or infectious disease) (1 source) Other specified abnormal findings of blood chemistry; Translations: [Low vitamin B12 level] Onset: 07-16-2022 Episodic Other skin disorders (20 sources) Callosity; Translations: [Corns and callosities] Onset: 11-16-2015 04-26-2016 Episodic Otitis media and related conditions (20 sources) Perforation of left tympanic membrane; Translations: [Unspecified perforation of tympanic membrane, left ear] Onset: 05-21-2019 05-21-2019 Episodic Residual codes; unclassified (20 sources) Bilateral lower limb edema; Translations: [Localized edema] Onset: 04-25-2015 04-26-2016 Episodic Residual codes; unclassified (20 sources) History of cardiac catheterization; Translations: [Other specified postprocedural states] Onset: 12-16-2020 09-25-2021 Episodic Comment on above: Non obstructive CAD per cardiac cath @ [facility] 12/30/20 Residual codes; unclassified (1 source) Localized edema; Translations: [Bilateral leg edema] Onset: 04-26-2016 Episodic Septicemia (except in labor) (20 sources) Septic shock; Translations: [Sepsis, unspecified organism] Onset: 01-17-2025 Episodic Spondylosis; intervertebral disc disorders; other back problems (20 sources) Low back pain; Translations: [Low back pain] Onset: 01-14-2014 04-26-2016 Episodic Urinary tract infections (20 sources) Urinary tract infectious disease; Translations: [Urinary tract infection, site not specified] Onset: 11-14-2024 11-04-2024 Episodic Results Test Name Value Interpretation Reference Range Facility 12 Lead EKGon 04-30-2025 12 Lead EKG Normal [facility] Absolute lymphocyte countOrd ered By: Ortiz Pinto on 04-30-2025 Lymphocytes Auto (Unsp spec) [#/Vol] 2.70 10*3/uL 0.83-4.51 [facility] Absolute neutrophil countOrd ered By: Ortiz Pinto on 04-30-2025 Neutrophils (Bld) [#/Vol] 4.8 10*3/uL 2.0-7.7 [facility] Anion gap in Serum or Plasma Ordered By: Ortiz Pinto on 04-30-2025 Anion gap [Moles/Vol] 14 mmol/L 11-29 [facility] Automated blood erythrocyte countOrdered By: Ortiz Pinto on 04-30-2025 RBC (Bld) [#/Vol] 5.19 10*6/uL Normal 4.2-5.4 [facility] Comment on above: Performed By: #### L 100.0100, L500.2500, L501.4021 ####[facility] [address] [place], [address] Automated blood hematocrit ( percentage)Ordered By: Ortiz Pinto on 04-30-2025 Hematocrit (Bld) [Volume fraction] 49.5 % High 37-47 [facility] Comment on above: Performed By: #### L 100.0100, L500.2500, L501.4021 ####[facility] [address] [place], [address] Automated lymphocyte count a s percentage of total leukocytesOrdered By: Ortiz Pinto on 04-30-2025 Lymphocytes/100 WBC Auto (Unsp spec) 31.2 % [facility] BUN/creatinine ratioOrdered By: Ortiz Pinto on 04-30-2025 Urea nitrogen/Creatinine [Mass ratio] 10.6 mg/mg 05-06 [facility] Basic Metabolic Profile (BMP )on 04-30-2025 BUN/CRE 10.6 RATIO Normal 05-06 [facility] Comment on above: Performed By: #### L 100.0100, L500.2500, L501.4021 ####[facility] [address] [place], [address] ECRCL 39.90 ml/min Low 50-250 [facility] Comment on above: Performed By: #### L 100.0100, L500.2500, L501.4021 ####[facility] [address] [place], [address] GAP 14 Normal 11-29 [facility] Comment on above: Performed By: #### L 100.0100, L500.2500, L501.4021 ####[facility] [address] [place], [address] Potassium [Moles/Vol] 3.6 mmol/L Normal 3.3-5.1 [facility] Comment on above: Performed By: #### L 100.0100, L500.2500, L501.4021 ####[facility] [address] [place], [address] Basophil percentageOrdered B y: Ortiz Pinto on 04-30-2025 Basophils/100 WBC (Bld) 0.2 % Normal 0-1 [facility] Comment on above: Performed By: #### L 100.0100, L500.2500, L501.4021 ####[facility] [address] [place], [address] CBC W/Diff, Automatedon 04-17 Absolute Lymph 2.70 X10 3/uL Normal 0.83-4.51 [facility] Comment on above: Performed By: #### L 100.0100, L500.2500, L501.4021 ####[facility] [address] [place], [address] Absolute Neut 4.8 X10 3/uL Normal 2.0-7.7 [facility] Comment on above: Performed By: #### L 100.0100, L500.2500, L501.4021 ####[facility] [address] [place], [address] IG% 0.100 Normal 0.0-0.9 [facility] Comment on above: Result Comment: IG% - Immature Granulocytes (promyelocytes, myelocytes andmetamyelocytes) > 1% indicates that a LEFT SHIFT is Present. Performed By: #### L 100.0100, L500.2500, L501.4021 ####[facility] [address] [place], [address] Lymphocytes/100 WBC (Bld) 31.2 % Normal 19-41 [facility] Comment on above: Performed By: #### L 100.0100, L500.2500, L501.4021 ####[facility] [address] [place], [address] Nucleated RBC (Bld) [#/Vol] 0 10*3/uL Normal 0-5 [facility] Comment on above: Performed By: #### L 100.0100, L500.2500, L501.4021 ####[facility] [address] [place], [address] RDW SD 50.4 fl High 35.1-43.9 [facility] Comment on above: Performed By: #### L 100.0100, L500.2500, L501.4021 ####[facility] [address] [place], [address] Carbon dioxide, total [Moles /volume] in Central venous bloodOrdered By: Ortiz Pinto on 04-30-2025 CO2 [Moles/Vol] 26.2 mmol/L Normal 21.0-32.0 [facility] Comment on above: Performed By: #### L 100.0100, L500.2500, L501.4021 ####[facility] [address] [place], [address] Chest PA and Lateralon 04-30 Chest PA and Lateral Normal [facility] Chloride assayOrdered By: Rudy Pinto on 04-30-2025 Chloride [Moles/Vol] 100 mmol/L Normal 98-108 [facility] Comment on above: Performed By: #### L 100.0100, L500.2500, L501.4021 ####[facility] [address] [place], [address] Electrocardiogram reportOrde red By: Az Engle on 04-30-2025 EKG study [facility] [address] [place] [address] 12 Lead EKG 04/30/25 1812 MR#: [id number] Acct: [id number] Name: PERNELL RODRIGUEZ Rep #:[id number] : 1960 65 From: Az Engle MD Attending Dr: Status: DEP E R Ordering Dr: Ortiz Pinto MD Date: 04/30/25 Location: ED Sex: F C Admitted: Test Reason : SOB Blood Pressure : */* mmHG Vent. Rate : 83 BPM Atrial Rate : 83 BPM P-R Int : 160 ms QRS Dur : 92 ms QT Int : 370 ms P-R-T Axes : 71 -7 50 degrees QTcB Int : 434 ms Normal sinus rhythm Normal ECG Confirmed by JOSEPH GUSTAFSON, [place] ([id number]), loan expeditor FLORES BOUCHER ([id number]) on 0:54:59 AM Referred By: JW Confirmed By: AZ ENGLE MD 05/01/25 1055 Date _ Az Engle MD CC: Dr. Ortiz Pinto MD; Dr. Homer Bradford MD ~ Signed [facility] Other Emergency Department Summary on 04-30-2025 Emergency Department Summary Normal [facility] Eosinophil percentageOrdered By: Ortiz Pinto on 04-30-2025 Eosinophils/100 WBC (Bld) 5.1 % High 0-5 [facility] Comment on above: Performed By: #### L 100.0100, L500.2500, L501.4021 ####[facility] [address] [place], [address] Erythrocyte distribution wid th ratioOrdered By: Ortiz Pinto on 04-30-2025 Erythrocyte distribution width (RBC) [Ratio] 14.4 % Normal 11.6-14.6 [facility] Comment on above: Performed By: #### L 100.0100, L500.2500, L501.4021 ####[facility] [address] [place], [address] Erythrocyte distribution wid th standard deviationOrdered By: Ortiz Pinto on 04-30-2025 Erythrocyte distribution width (RBC) [Ratio] 50.4 fl High 35.1-43.9 [facility] Glomerular filtration rate ( GFR) estimation/1.73 sq m using serum, plasma, or whole bOrdered By: Ortiz Pinto on 04-30-2025 GFR/1.73 sq M.predicted among non-blacks MDRD (S/P/Bld) [Vol rate/Area] 34 mL/min/{1.73_m2} Low >60 [facility] Comment on above: mL/min/1.73m2 CKD-EP I Creatinine Equation (2020) Result Comment: mL/m in/1.73m2 CKD-EPI Creatinine Equation (2020) Performed By: #### L 100.0100, L500.2500, L501.4021 ####[facility] [address] [place], [address] Hemoglobin measurementOrdere d By: Ortiz Pinto on 04-30-2025 Hemoglobin (Bld) [Mass/Vol] 15.9 g/dL High 12.0-15.0 [facility] Comment on above: Performed By: #### L 100.0100, L500.2500, L501.4021 ####[facility] [address] [place], [address] Immature granulocytes/100 WB C Auto (Bld)Ordered By: Ortiz Pinto on 04-30-2025 Immature granulocytes/100 WBC (Bld) 0.100 % 0.0-0.9 [facility] Comment on above: IG% - Immature Granu locytes (promyelocytes, myelocytes and metamyelocytes) > 1% indicates that a LEFT SHIFT is Present. Influenza virus A and B and SARS-CoV-2 (COVID-19) and Respiratory syncytial virus RNAOrdered By: Ortiz Pinto on 04-30-2025 SARS-CoV-2 (COVID-19) RNA GERARDO+probe Ql (Unsp spec) [facility] L501.4021on 04-30-2025 Trop T High Sen 18 ng/L High <=14 [facility] Comment on above: Performed By: #### L 100.0100, L500.2500, L501.4021 ####[facility] [address] [place], [address] M100.678on 04-30-2025 M100.678 SARS-CoV-2 (COVID 19 ) Negative INFLUENZA A Negative INFLUENZA B Negative RSV PCR Negative Normal [facility] Comment on above: Performed By: #### M 100.678 ####[facility] [address] [place], [address] MCV (mean corpuscular volume ) determinationOrdered By: Ortiz Pinto on 04-30-2025 MCV (RBC) [Entitic vol] 95.4 fL Normal 81-99 [facility] Comment on above: Performed By: #### L 100.0100, L500.2500, L501.4021 ####[facility] [address] [place], [address] Mean corpuscular hemoglobin (MCH) determinationOrdered By: Ortiz Pinto on 04-30-2025 MCH (RBC) [Entitic mass] 30.6 pg Normal 27.0-32.0 [facility] Comment on above: Performed By: #### L 100.0100, L500.2500, L501.4021 ####[facility] [address] [place], [address] Mean corpuscular hemoglobin concentration (MCHC) determinationOrdered By: Ortiz Pinto on 04-30-2025 MCHC (RBC) [Mass/Vol] 32.1 g/dL Normal 32-36 [facility] Comment on above: Performed By: #### L 100.0100, L500.2500, L501.4021 ####[facility] [address] [place], [address] Mean platelet volume determi nationOrdered By: Ortiz Pinto on 04-30-2025 Platelet mean volume (Bld) [Entitic vol] 10.3 fL Normal 6.2-12.0 [facility] Comment on above: Performed By: #### L 100.0100, L500.2500, L501.4021 ####[facility] [address] [place], [address] Monocyte percentageOrdered B y: Ortiz Pinto on 04-30-2025 Monocytes/100 WBC (Bld) 8.0 % Normal 0-10 [facility] Comment on above: Performed By: #### L 100.0100, L500.2500, L501.4021 ####[facility] [address] [place], [address] Neutrophil percentageOrdered By: Ortiz Pinto on 04-30-2025 Neutrophils/100 WBC (Bld) 55.4 % Normal 47-70 [facility] Comment on above: Performed By: #### L 100.0100, L500.2500, L501.4021 ####[facility] [address] [place], [address] Nucleated red blood cell per centageOrdered By: Ortiz Pinto on 04-30-2025 Nucleated RBC/100 WBC (Bld) [Ratio] 0 % 0-5 [facility] Platelet countOrdered By: Rudy Pinto on 04-30-2025 Platelets (Bld) [#/Vol] 275 10*3/uL Normal 150-450 [facility] Comment on above: Performed By: #### L 100.0100, L500.2500, L501.4021 ####[facility] [address] [place], [address] Potassium measurement (mass/ volume)Ordered By: Ortiz Pinto on 04-30-2025 Potassium (Unsp spec) [Mass/Vol] 3.6 mmol/L 3.3-5.1 [facility] Serum creatinine measurement (mass/volume)Ordered By: Ortiz Pinto on 04-30-2025 Creatinine [Mass/Vol] 1.69 mg/dL High 0.70-1.20 [facility] Comment on above: Performed By: #### L 100.0100, L500.2500, L501.4021 ####[facility] [address] [place], [address] Serum glucose measurement (m ass/volume)Ordered By: Ortiz Pinto on 04-30-2025 Glucose [Mass/Vol] 103 mg/dL High 70-99 [facility] Comment on above: Performed By: #### L 100.0100, L500.2500, L501.4021 ####[facility] [address] [place], [address] Serum or plasma calcium dane urement (mass/volume)Ordered By: Ortiz Pinto on 04-30-2025 Calcium [Mass/Vol] 9.6 mg/dL Normal 7.6-11.0 [facility] Comment on above: Performed By: #### L 100.0100, L500.2500, L501.4021 ####[facility] [address] [place], [address] Serum or plasma urea nitroge n measurement (mass/volume)Ordered By: Ortiz Pinto on 04-30-2025 Urea nitrogen [Mass/Vol] 18 mg/dL Normal 4-19 [facility] Comment on above: Performed By: #### L 100.0100, L500.2500, L501.4021 ####[facility] [address] [place], [address] Sodium levelOrdered By: Carlos Pinto on 04-30-2025 Sodium [Moles/Vol] 140 mmol/L Normal 133-145 [facility] Comment on above: Performed By: #### L 100.0100, L500.2500, L501.4021 ####[facility] [address] [place], [address] Troponin T HS 2 HRon 025 Trop T High Sen 16 ng/L High <=14 [facility] Comment on above: Performed By: #### L 499.0042 ####[facility] [address] [place], [address] Troponin T HS 4 HRon 025 Trop T High Sen Normal <=14 [facility] Comment on above: Result Comment: Canc elled via OM: Order cancelled - Patient discharged Performed By: #### L 499.0043 ####[facility] [address] [place], [address] Troponin T.cardiac [Mass/vol ume] in Serum or Plasma by High sensitivity methodOrdered By: Ortiz Pinto on 04-30-2025 Troponin T.cardiac High sensitivity method [Mass/Vol] 16 ng/L High <14 [facility] Troponin T.cardiac High sensitivity method [Mass/Vol] 18 ng/L High <14 [facility] Comment on above: Delta: 23 on 5-1122 White blood cell (WBC) count Ordered By: Ortiz Pinto on 04-30-2025 WBC (Bld) [#/Vol] 8.7 10*3/uL Normal 4.4-11.0 [facility] Comment on above: Performed By: #### L 100.0100, L500.2500, L501.4021 ####[facility] [address] [place], [address] CNOVon 04-04-2025 CNOV Office Visit (ORTHWS ) PERNELL RODRIGUEZ ([id number]) 1960 F Date Time Provider Department 04/04/25 11:20 AM ORTIZ AMSSEY During your visit today, we recorded the following information about you: Ortiz Massey MD 04/05/2025 11:29 AM Signed Ortiz Massey MD Department of Orthopaedics Orth[facility] [address] [place] [id number] Dept: [phone] Dept April 04, 2025 CHIEF COMPLAINT: New and Pain of the Left Shoulder (Referred by Dr Bradford) Patient here for left shoulder pain. Patient denies any pain. Patient states she had a cortisone injection 2 years ago and did not help. Was told she would need surgery for that surgery. States it made it hurt worse. States her pain is getting worse and is unable to use her left arm. Patient has using a pain patch and aspercreme for the pain. Patient states the heating pad works as well. LI Rodriguez is a 65-year-old female with a history of right rotator cuff repair, presenting with left shoulder pain and limited range of motion. Pernell reports chronic left shoulder pain and significant restriction in range of motion, which has progressively worsened over the past year. She is unable to reach overhead or behind her back and experiences pain radiating from the shoulder to the back of the neck. She has been using pain patches prescribed by Dr. Reynolds, applying them 24 hours on and 24 hours off, with minimal relief. She previously received a cortisone injection from Dr. Godwin last year, which exacerbated her pain and caused emesis. She also attempted physical therapy with [facility] last year but discontinued due to increased soreness, lack of transportation, and eviction. Pernell was reportedly told she had a torn rotator cuff approximately 6 months ago, but no imaging was performed to confirm this diagnosis. She has a history of right rotator cuff repair in 2003 and bilateral carpal tunnel release. She also has a history of diabetes, which precludes the use of prednisone, and is unable to take anti-inflammatories due to renal issues. She is a current smoker, which may impact healing and surgical outcomes. ASSESSMENT: M75.02 Adhesive capsulitis of left shoulder (primary encounter diagnosis) M67.912 Rotator cuff disorder, left F17.210 Nicotine dependence, cigarettes, uncomplicated E11.9 Type 2 diabetes mellitus without complication, without long-term current use of insulin (HCC) 1. Adhesive capsulitis of left shoulder (M75.02) 2. Rotator cuff disorder, left (M67.912) Severe adhesive capsulitis of the left shoulder with significant restriction in range of motion and pain, persisting for over a year. Prior corticosteroid injection provided no relief and worsened symptoms. Differential includes possible rotator cuff tear, but diagnosis cannot be confirmed without MRI or ultrasound due to limited mobility. - Ordered MRI of the left shoulder to evaluate for rotator cuff tear and further assess adhesive capsulitis; explained that [employer] insurance may require additional physical therapy sessions before approving MRI. - Advised patient to attempt a few more physical therapy sessions to meet insurance requirements for MRI approval. - Discussed that surgery is not currently an option due to medical comorbidities and smoking status. - Educated patient on the importance of physical therapy for improving shoulder mobility and the potential for improvement with therapy. - Discussed possible in-office procedure for frozen shoulder (hydrodilatation) if MRI is approved and confirms diagnosis. - Advised patient to obtain a new X-ray of the left shoulder when available to assess for any significant changes since last year. 3. Nicotine dependence, cigarettes, uncomplicated (F17.210) Ongoing nicotine dependence; current smoking status negatively impacts healing and surgical candidacy. - Advised patient on the detrimental effects of smoking on healing and surgical outcomes. 4. Type 2 diabetes mellitus without complication, without long-term current use of insulin (HCC) (E11.9) Type 2 diabetes mellitus; corticosteroids contraindicated due to diabetes. - Discussed contraindication of corticosteroids due to diabetes. Will continue to monitor patient for Adhesive capsulitis of left shoulder (primary encounter diagnosis) Rotator cuff disorder, left Nicotine dependence, cigarettes, uncomplicated Type 2 diabetes mellitus without complication, without long-term current use of insulin (hcc), patient to schedule visit as per follow up discussed. OBJECTIVE: Ms. Pernell Rodriguez is a pleasant 65 year old in no apparent distress. Gen:LMP 02/22/2006 nl development, obese, no deformities ENT: Normocephalic, normal hearing, moist mucosa CV: Pulses:Radial= 2+ and symmetric, capillary refill < 2 secs, no peripheral edema/v (more content not included)... Normal [facility] [place] 03-27-2025 [facility] Telephone ([facility]) PHILLIPPERNELL ([id number]) 1960 F Date Time Provider Department 03/27/25 HOMER BRADFORD During your visit today, we recorded the following information about you: Erwin Harvey, OMARI 03/27/2025 2:22 PM Signed Pt reports she picked up the letter in Medical Records and now the [facility] wants a letter from pcp stating all of patient's diagnoses and the names of all the doctors who treat her. Pt would like pcp office to fax this letter to [facility]. Pt will call back with fax number. Homer Bradford MD 03/28/2025 8:21 AM Signed See if Pernell can give us the name and number of a shipping lead person at the [facility]. Then let them know know they need to fax a letter with what they want and a signed release of medical information by Pernell or else it's a HIPA violation. Jose Jarrell MA 03/28/2025 9:44 AM Signed Called and left message on patients voicemail to return call to the office and ask to speak with a triage nurse. When pt returns call please obtain information below. Once information obtained, can we please call and notify them we need the information PCP is asking for, thanks. TAMRA Mendoza M Robin, RN 03/28/2025 2:19 PM Signed Patient phoned and informed pt doctor would like to have the name and phone number phone number of a shipping lead person at the [facility] so that we may contact them. Pt looked for it and states she can't find it, but will call back with that information and give to nurse. Pt asking if pcp can send her an Rx for lidocaine patch to [facility]. Reports she needs an Rx in order for insurance to cover it. States her shoulder hurts and she is not scheduled with ortho until 04/04/25. Homer Bradford MD 03/28/2025 2:57 PM Signed The following approved medication requests have been transmitted electronically. Requested Prescriptions Signed Prescriptions Disp Refills lidocaine (LIDODERM) 5 % 10 patch 0 Sig: Apply 1 patch as directed once daily. REMOVE AFTER 12 HOURS. Authorizing Provider: HOMER BRADFORD MD Allergies As of Date: 03/27/2025 Noted Allergy Reaction PENICILLINS 03/30/2006 4 - Hives TETANUS, DIPHTHERIA TOX ABSORB AD*12/28/2014 7 - Swelling Comments: local reaction ASPIRIN 01/04/2023 16 - Unknown BENZTROPINE 02/12/2014 16 - Unknown DIAZEPAM 02/12/2014 16 - Unknown IMODIUM (LOPERAMIDE) 05/23/2018 14 - Other: See Comments Comments: Chest pain MELLARIL (THIORIDAZINE) 02/12/2014 8 - GI Upset PNEUMOVAX 23 (PNEUMOCOCCAL 23-SHARLA*12/25/2014 5 - Intolerance SULFA (SULFONAMIDE ANTIBIOTICS) 11/24/2015 8 - GI Upset Comments: Causes vomiting and rash TEGRETOL (CARBAMAZEPINE) 02/12/2014 8 - GI Upset Date Reviewed: 03/21/2025 Reviewed by: Dilma Beck OA - Fully Assessed Reason for Visit: Letter [Other] Order(s):lidocaine (LIDODERM) 5 %Apply 1 patch as directed once daily. REMOVE AFTER 12 HOURS.Disp: 10 patchRfl: 0 Prescriptions as of 03/28/2025 - lidocaine (LIDODERM) 5 % Apply 1 patch as directed once daily. REMOVE AFTER 12 HOURS. - spironolactone (ALDACTONE) 25 mg tablet Take 1 tablet by mouth once daily. To get her to her appt with cardio - furosemide (LASIX) 20 mg tablet Take 1 tablet by mouth two times a day. To get her to her appt with cardio - aspirin, enteric coated (ASPIRIN, ENTERIC COATED) 81 mg EC tablet Take 81 mg by mouth once daily. - ipratropium-albuterol (DUONEB) 0.5 mg-3 mg(2.5 mg base)/3 mL nebu 3 mL every 6 hours as needed for wheezing/shortness of breath. - vibegron (GEMTESA) 75 mg tablet Take 75 mg by mouth once daily. - omeprazole (PRILOSEC) 40 mg capsule Take 1 capsule by mouth once daily. - mupirocin (BACTROBAN) 2 % ointment Apply 2 FTUs to affected area three times a day x7 days - midodrine (PROAMATINE) 10 mg tablet Take 10 mg by mouth three times a day. - lovastatin 40 mg tablet TAKE 1 TABLET BY MOUTH DAILY AT BEDTIME. FOR CHOLESTEROL. - LORazepam (ATIVAN) 0.5 mg Take by mouth two times a day as needed. - fesoterodine (TOVIAZ) 4 mg Tb24 extended release tablet Take 4 mg by mouth once daily. - nitroglycerin sublingual (NITROQUICK) 0.4 mg SL tablet Dissolve 1 tablet under the tongue every 5 minutes as needed for chest pain. - MEDICAL SUPPLY Adult Size Pull On XXL/Bariatric needs 6 a day, Dx: N39.46, R15.9 and M62.81 - hyoscyamine SR (LEVBID) 0.375 mg 12 hr tablet Take 1 tablet by mouth two times a day. - MEDICAL SUPPLY Please replace pull up every 1.5-2 hrs while awake and 1-3 times a night to reduce risk of skin break down and secondary infections. #240 a month Dx: N39.46 and R15.9 - traZODone (DESYREL) 100 mg tablet 1 tablet daily at bedtime. Per psych: Dr. Alvarez, not on as of 11/16/2023 - QUEtiapine ER (SEROQUEL XR) 200 mg 24 hr tablet Take 1 tablet b (more content not included)... Normal [facility] 03-25-2025 [facility] Telephone (CAMILA) PERNELL RODRIGUEZ ([id number]) 1960 F Date Time Provider Department 03/25/25 [facility] During your visit today, we recorded the following information about you: Mary Ann Rodriguez LPN 03/25/2025 9:28 AM Signed Patient calling asking for a letter from PCP saying he agrees would be good idea for her to go into Assisted Living per [facility]. Patient said [address] on [address] the [facility] area, did not know the name. Please call patient when ready for pick pulling machine tender. Please advise Mary Ann Rodriguez LPN 03/25/2025 10:15 AM Signed Patient calling back said assisted living is called [facility]. Homer Bradford MD 03/25/2025 4:10 PM Signed Let patient know letter ready for pick pulling machine tender. Jose Jarrell MA 03/25/2025 4:18 PM Signed Call to pt and notified her letter is ready for pick pulling machine tender at [facility]. Pt will be her tomorrow to pick pulling machine tender. Jose Jarrell MA Allergies As of Date: 03/25/2025 Noted Allergy Reaction PENICILLINS 03/30/2006 4 - Hives TETANUS, DIPHTHERIA TOX ABSORB AD*12/28/2014 7 - Swelling Comments: local reaction ASPIRIN 01/04/2023 16 - Unknown BENZTROPINE 02/12/2014 16 - Unknown DIAZEPAM 02/12/2014 16 - Unknown IMODIUM (LOPERAMIDE) 05/23/2018 14 - Other: See Comments Comments: Chest pain MELLARIL (THIORIDAZINE) 02/12/2014 8 - GI Upset PNEUMOVAX 23 (PNEUMOCOCCAL 23-SHARLA*12/25/2014 5 - Intolerance SULFA (SULFONAMIDE ANTIBIOTICS) 11/24/2015 8 - GI Upset Comments: Causes vomiting and rash TEGRETOL (CARBAMAZEPINE) 02/12/2014 8 - GI Upset Date Reviewed: 03/21/2025 Reviewed by: Dilma Beck OA - Fully Assessed Reason for Visit: Letter [264] Prescriptions as of 03/25/2025 - furosemide (LASIX) 20 mg tablet Take 1 tablet by mouth two times a day. To get her to her appt with cardio - spironolactone (ALDACTONE) 25 mg tablet Take 1 tablet by mouth once daily. To get her to her appt with cardio - aspirin, enteric coated (ASPIRIN, ENTERIC COATED) 81 mg EC tablet Take 81 mg by mouth once daily. - ipratropium-albuterol (DUONEB) 0.5 mg-3 mg(2.5 mg base)/3 mL nebu 3 mL every 6 hours as needed for wheezing/shortness of breath. - vibegron (GEMTESA) 75 mg tablet Take 75 mg by mouth once daily. - omeprazole (PRILOSEC) 40 mg capsule Take 1 capsule by mouth once daily. - mupirocin (BACTROBAN) 2 % ointment Apply 2 FTUs to affected area three times a day x7 days - midodrine (PROAMATINE) 10 mg tablet Take 10 mg by mouth three times a day. - lovastatin 40 mg tablet TAKE 1 TABLET BY MOUTH DAILY AT BEDTIME. FOR CHOLESTEROL. - LORazepam (ATIVAN) 0.5 mg Take by mouth two times a day as needed. - fesoterodine (TOVIAZ) 4 mg Tb24 extended release tablet Take 4 mg by mouth once daily. - nitroglycerin sublingual (NITROQUICK) 0.4 mg SL tablet Dissolve 1 tablet under the tongue every 5 minutes as needed for chest pain. - MEDICAL SUPPLY Adult Size Pull On XXL/Bariatric needs 6 a day, Dx: N39.46, R15.9 and M62.81 - hyoscyamine SR (LEVBID) 0.375 mg 12 hr tablet Take 1 tablet by mouth two times a day. - MEDICAL SUPPLY Please replace pull up every 1.5-2 hrs while awake and 1-3 times a night to reduce risk of skin break down and secondary infections. #240 a month Dx: N39.46 and R15.9 - traZODone (DESYREL) 100 mg tablet 1 tablet daily at bedtime. Per psych: Dr. Alvarez, not on as of 11/16/2023 - QUEtiapine ER (SEROQUEL XR) 200 mg 24 hr tablet Take 1 tablet by mouth two times a day. Per psych, Dr. Negrete, not on as of 11/16/2023 - citalopram hydrobromide (CELEXA) 10 mg tablet Take 1 tablet by mouth once daily. Per psych, Dr. Negrete, - albuterol HFA (VENTOLIN HFA) 90 mcg/actuation inhaler INHALE 2 PUFFS INSTRUCTED EVERY FOUR HOURS NEEDED. Dr. Christopher: Pulm - apixaban (ELIQUIS) 5 mg tab(s) Take 1 tablet by mouth twice daily. Per Cardio, Fish - COMPOUNDED PRESCRIPTION Adult diapers size XL Change diaper up to seven times a day. # 210 diapers With 5 refills Dx: R32 and R15.9 Problem List As Of Date 03/25/2025 Noted Resolved Hives [L50.9] 01/14/2014 Extrapyramidal reaction [G25.9] 01/14/2014 Hypotension [I95.9] 01/14/2014 Diabetic eye exam (HCC) [Z01.00, E11.9] 01/14/2014 Chronic pain [G89.29] 01/14/2014 Diabetic foot (HCC) [E11.8] 01/14/2014 Low back pain [M54.50] 01/14/2014 Mixed hyperlipidemia [E78.2] 01/14/2014 Chest pain [R07.9] 02/14/2014 Lumbosacral neuritis [M54.17] 04/16/2014 Myofascial pain [M79.18] 04/16/2014 Hypokalemia [E87.6] 07/23/2014 ASHD (arteriosclerotic heart disease) [I25.10] 10/25/2014 Physical deconditioning [R53.81] 04/02/2015 Chronic back pain greater than 3 months duratio*04/02/2015 Type 2 diabetes mellitus with stage 3b chronic *04/25/2015 Gastroesophageal reflux disease without esophag*04/25/2015 Chronic obstructive pulmonary disease (HCC) [J4*04/25/2015 History of CVA (cerebrovascular accident) [Z86.*04/25/2015 (more content not included)... Normal [facility] [place] [facility] PERNELL RODRIGUEZ ([id number]) 1960 F Date Time Provider Department 03/19/25 ZOILA SAGE During your visit today, we recorded the following information about you: Zoila Sage, CASTING WHEEL OPERATOR 03/19/2025 9:59 AM Signed Sw received message from patient asking about name of worker from [employer] that was helping patient with housing assistance. Sw called patient back and left message with Elsie Green name and noted that she is the [facility] Manager for [facility] [employer]. Sw also left number for [employer] Chaitanya oneil [phone]. Allergies As of Date: 03/19/2025 Noted Allergy Reaction PENICILLINS 03/30/2006 4 - Hives TETANUS, DIPHTHERIA TOX ABSORB AD*12/28/2014 7 - Swelling Comments: local reaction ASPIRIN 01/04/2023 16 - Unknown BENZTROPINE 02/12/2014 16 - Unknown DIAZEPAM 02/12/2014 16 - Unknown IMODIUM (LOPERAMIDE) 05/23/2018 14 - Other: See Comments Comments: Chest pain MELLARIL (THIORIDAZINE) 02/12/2014 8 - GI Upset PNEUMOVAX 23 (PNEUMOCOCCAL 23-SHARLA*12/25/2014 5 - Intolerance SULFA (SULFONAMIDE ANTIBIOTICS) 11/24/2015 8 - GI Upset Comments: Causes vomiting and rash TEGRETOL (CARBAMAZEPINE) 02/12/2014 8 - GI Upset Date Reviewed: 02/21/2025 Reviewed by: Homer Bradford MD - Fully Assessed Prescriptions as of 03/19/2025 - furosemide (LASIX) 20 mg tablet Take 1 tablet by mouth two times a day. To get her to her appt with cardio - spironolactone (ALDACTONE) 25 mg tablet Take 1 tablet by mouth once daily. To get her to her appt with cardio - aspirin, enteric coated (ASPIRIN, ENTERIC COATED) 81 mg EC tablet Take 81 mg by mouth once daily. - ipratropium-albuterol (DUONEB) 0.5 mg-3 mg(2.5 mg base)/3 mL nebu 3 mL every 6 hours as needed for wheezing/shortness of breath. - vibegron (GEMTESA) 75 mg tablet Take 75 mg by mouth once daily. - omeprazole (PRILOSEC) 40 mg capsule Take 1 capsule by mouth once daily. - mupirocin (BACTROBAN) 2 % ointment Apply 2 FTUs to affected area three times a day x7 days - midodrine (PROAMATINE) 10 mg tablet Take 10 mg by mouth three times a day. - lovastatin 40 mg tablet TAKE 1 TABLET BY MOUTH DAILY AT BEDTIME. FOR CHOLESTEROL. - LORazepam (ATIVAN) 0.5 mg Take by mouth two times a day as needed. - fesoterodine (TOVIAZ) 4 mg Tb24 extended release tablet Take 4 mg by mouth once daily. - nitroglycerin sublingual (NITROQUICK) 0.4 mg SL tablet Dissolve 1 tablet under the tongue every 5 minutes as needed for chest pain. - MEDICAL SUPPLY Adult Size Pull On XXL/Bariatric needs 6 a day, Dx: N39.46, R15.9 and M62.81 - hyoscyamine SR (LEVBID) 0.375 mg 12 hr tablet Take 1 tablet by mouth two times a day. - MEDICAL SUPPLY Please replace pull up every 1.5-2 hrs while awake and 1-3 times a night to reduce risk of skin break down and secondary infections. #240 a month Dx: N39.46 and R15.9 - traZODone (DESYREL) 100 mg tablet 1 tablet daily at bedtime. Per psych: Dr. Alvarez, not on as of 11/16/2023 - QUEtiapine ER (SEROQUEL XR) 200 mg 24 hr tablet Take 1 tablet by mouth two times a day. Per psych, Dr. Negrete, not on as of 11/16/2023 - citalopram hydrobromide (CELEXA) 10 mg tablet Take 1 tablet by mouth once daily. Per psych, Dr. Negrete, - albuterol HFA (VENTOLIN HFA) 90 mcg/actuation inhaler INHALE 2 PUFFS INSTRUCTED EVERY FOUR HOU[address]. Christopher: Pulm - apixaban (ELIQUIS) 5 mg tab(s) Take 1 tablet by mouth twice daily. Per Cardio, Fish - COMPOUNDED PRESCRIPTION Adult diapers size XL Change diaper up to seven times a day. # 210 diapers With 5 refills Dx: R32 and R15.9 Problem List As Of Date 03/19/2025 Noted Resolved Hives [L50.9] 01/14/2014 Extrapyramidal reaction [G25.9] 01/14/2014 Hypotension [I95.9] 01/14/2014 Diabetic eye exam (HCC) [Z01.00, E11.9] 01/14/2014 Chronic pain [G89.29] 01/14/2014 Diabetic foot (HCC) [E11.8] 01/14/2014 Low back pain [M54.50] 01/14/2014 Mixed hyperlipidemia [E78.2] 01/14/2014 Chest pain [R07.9] 02/14/2014 Lumbosacral neuritis [M54.17] 04/16/2014 Myofascial pain [M79.18] 04/16/2014 Hypokalemia [E87.6] 07/23/2014 ASHD (arteriosclerotic heart disease) [I25.10] 10/25/2014 Physical deconditioning [R53.81] 04/02/2015 Chronic back pain greater than 3 months duratio*04/02/2015 Type 2 diabetes mellitus with stage 3b chronic *04/25/2015 Gastroesophageal reflux disease without esophag*04/25/2015 Chronic obstructive pulmonary disease (HCC) [J4*04/25/2015 History of CVA (cerebrovascular accident) [Z86.*04/25/2015 Bilateral leg edema [R60.0] 04/25/2015 Bipolar affective disorder (HCC) [F31.9] 04/25/2015 Major depressive disorder, recurrent episode, m*04/25/2015 [place] or callus [L84] 11/16/2015 Nodule of left lung [R91.1] 12/17/2015 Well adult exam [Z00.00] 10/27/2016 Colon cancer screening [Z12.11] 10/27/2016 Migraine without aura and without status m (more content not included)... Normal [facility] - Chemistry and C hemistry - challengeOrdered By: Jennifer Alba on 03-11-2025 Bilirubin Ql (U) Negative [facility] Glucose Ql (U) Negative [facility] Ketones Ql (U) Negative [facility] pH (U) 6 [pH] [facility] Specific gravity (U) [Rel density] 1.015 [facility] Urobilinogen (U) [Mass/Vol] Negative [facility] Laboratory - Hematology and Cell countsOrdered By: Jennifer Alba on 03-11-2025 Hemoglobin Ql (U) Negative [facility] - UrinalysisOrder ed By: Jennifer Alba on 03-11-2025 Nitrite Ql (U) Negative [facility] Protein Ql (U) Negative [facility] MR/BMS.CONCETTAon 03-11-2025 MR/BMS.BUS Normal [facility] No Panel InformationOrdered By: Jennifer Alba on 03-11-2025 Urine Leukocytes Negatve [facility] Urine Non-Hemolyzed Blood Negative [facility] CNPNon 03-05-2025 CNPN Telephone (TA[place]NAWST) PERNELL RODRIGUEZ ([id number]) 1960 F Date Time Provider Department 03/05/25 ZOILA SAGE During your visit today, we recorded the following information about you: Zoila Sage, CASTING WHEEL OPERATOR 03/05/2025 3:42 PM Signed Patient and Sw spoke regarding [employer] and patient is going to give them a call to see what type of housing resource help they may offer. Sw will check back in with patient tomorrow and see what [employer] had to say to patient. Zoila Sage, CASTING WHEEL OPERATOR 03/06/2025 10:33 AM Signed Patient spoke with Sw and told her that she has not yet called [employer]. Patient states that she will call them now and see what type of help they can provide through Medicaid Waiver for housing support. Zoila Sage, CASTING WHEEL OPERATOR 03/13/2025 10:01 AM Signed Aaron left patient message to return Sw call to check in with patient regarding housing assistance needs. Allergies As of Date: 03/05/2025 Noted Allergy Reaction PENICILLINS 03/30/2006 4 - Hives TETANUS, DIPHTHERIA TOX ABSORB AD*12/28/2014 7 - Swelling Comments: local reaction ASPIRIN 01/04/2023 16 - Unknown BENZTROPINE 02/12/2014 16 - Unknown DIAZEPAM 02/12/2014 16 - Unknown IMODIUM (LOPERAMIDE) 05/23/2018 14 - Other: See Comments Comments: Chest pain MELLARIL (THIORIDAZINE) 02/12/2014 8 - GI Upset PNEUMOVAX 23 (PNEUMOCOCCAL 23-SHARLA*12/25/2014 5 - Intolerance SULFA (SULFONAMIDE ANTIBIOTICS) 11/24/2015 8 - GI Upset Comments: Causes vomiting and rash TEGRETOL (CARBAMAZEPINE) 02/12/2014 8 - GI Upset Date Reviewed: 02/21/2025 Reviewed by: Homer Bradford MD - Fully Assessed Prescriptions as of 03/15/2025 - furosemide (LASIX) 20 mg tablet Take 1 tablet by mouth two times a day. To get her to her appt with cardio - spironolactone (ALDACTONE) 25 mg tablet Take 1 tablet by mouth once daily. To get her to her appt with cardio - aspirin, enteric coated (ASPIRIN, ENTERIC COATED) 81 mg EC tablet Take 81 mg by mouth once daily. - ipratropium-albuterol (DUONEB) 0.5 mg-3 mg(2.5 mg base)/3 mL nebu 3 mL every 6 hours as needed for wheezing/shortness of breath. - vibegron (GEMTESA) 75 mg tablet Take 75 mg by mouth once daily. - omeprazole (PRILOSEC) 40 mg capsule Take 1 capsule by mouth once daily. - mupirocin (BACTROBAN) 2 % ointment Apply 2 FTUs to affected area three times a day x7 days - midodrine (PROAMATINE) 10 mg tablet Take 10 mg by mouth three times a day. - lovastatin 40 mg tablet TAKE 1 TABLET BY MOUTH DAILY AT BEDTIME. FOR CHOLESTEROL. - LORazepam (ATIVAN) 0.5 mg Take by mouth two times a day as needed. - fesoterodine (TOVIAZ) 4 mg Tb24 extended release tablet Take 4 mg by mouth once daily. - nitroglycerin sublingual (NITROQUICK) 0.4 mg SL tablet Dissolve 1 tablet under the tongue every 5 minutes as needed for chest pain. - MEDICAL SUPPLY Adult Size Pull On XXL/Bariatric needs 6 a day, Dx: N39.46, R15.9 and M62.81 - hyoscyamine SR (LEVBID) 0.375 mg 12 hr tablet Take 1 tablet by mouth two times a day. - MEDICAL SUPPLY Please replace pull up every 1.5-2 hrs while awake and 1-3 times a night to reduce risk of skin break down and secondary infections. #240 a month Dx: N39.46 and R15.9 - traZODone (DESYREL) 100 mg tablet 1 tablet daily at bedtime. Per psych: Dr. Alvarez, not on as of 11/16/2023 - QUEtiapine ER (SEROQUEL XR) 200 mg 24 hr tablet Take 1 tablet by mouth two times a day. Per psych, Dr. Negrete, not on as of 11/16/2023 - citalopram hydrobromide (CELEXA) 10 mg tablet Take 1 tablet by mouth once daily. Per psych, Dr. Negrete, - albuterol HFA (VENTOLIN HFA) 90 mcg/actuation inhaler INHALE 2 PUFFS INSTRUCTED EVERY FOUR [address] Christopher: Pulm - apixaban (ELIQUIS) 5 mg tab(s) Take 1 tablet by mouth twice daily. Per Cardio, Fish - COMPOUNDED PRESCRIPTION Adult diapers size XL Change diaper up to seven times a day. # 210 diapers With 5 refills Dx: R32 and R15.9 Problem List As Of Date 03/05/2025 Noted Resolved Hives [L50.9] 01/14/2014 Extrapyramidal reaction [G25.9] 01/14/2014 Hypotension [I95.9] 01/14/2014 Diabetic eye exam (HCC) [Z01.00, E11.9] 01/14/2014 Chronic pain [G89.29] 01/14/2014 Diabetic foot (HCC) [E11.8] 01/14/2014 Low back pain [M54.50] 01/14/2014 Mixed hyperlipidemia [E78.2] 01/14/2014 Chest pain [R07.9] 02/14/2014 Lumbosacral neuritis [M54.17] 04/16/2014 Myofascial pain [M79.18] 04/16/2014 Hypokalemia [E87.6] 07/23/2014 ASHD (arteriosclerotic heart disease) [I25.10] 10/25/2014 Physical deconditioning [R53.81] 04/02/2015 Chronic back pain greater than 3 months duratio*04/02/2015 Type 2 diabetes mellitus with stage 3b chronic *04/25/2015 Gastroesophageal reflux disease without esophag*04/25/2015 Chronic obstructive pulmonary disease (HCC) [J4*04/25/2015 History of CVA (cerebrovascular accident) [Z86.*04/25/2015 Bilateral leg edema [ (more content not included)... Normal [facility] CNPNon 03-04-2025 CNPN Telephone (NAVWST) PERNELL RODRIGUEZ ([id number]) 1960 F Date Time Provider Department 03/04/25 ZOILA SAGE During your visit today, we recorded the following information about you: Zoila Sage MSW 03/04/2025 12:51 PM Signed Patient called Aaron and said that the lady she is currently living with wants her to move out this weekend. Aaron asked if patient and Jimy Zimmerman, had been working on housing with her and patient said that she tried to get to [employer], but couldn't find her walker. Patient asked if Sw for have Elsie give her a call again. Aaron called and left Jimy Zimmerman a message asking that she call back to discuss. Zoila Sage MSW 03/05/2025 12:00 PM Signed Aaron spoke with Jimy Zimmerman, Senior Outreach. Elsie reports that she will call patient this afternoon to discuss housing needs. Allergies As of Date: 03/04/2025 Noted Allergy Reaction PENICILLINS 03/30/2006 4 - Hives TETANUS, DIPHTHERIA TOX ABSORB AD*12/28/2014 7 - Swelling Comments: local reaction ASPIRIN 01/04/2023 16 - Unknown BENZTROPINE 02/12/2014 16 - Unknown DIAZEPAM 02/12/2014 16 - Unknown IMODIUM (LOPERAMIDE) 05/23/2018 14 - Other: See Comments Comments: Chest pain MELLARIL (THIORIDAZINE) 02/12/2014 8 - GI Upset PNEUMOVAX 23 (PNEUMOCOCCAL 23-SHARLA*12/25/2014 5 - Intolerance SULFA (SULFONAMIDE ANTIBIOTICS) 11/24/2015 8 - GI Upset Comments: Causes vomiting and rash TEGRETOL (CARBAMAZEPINE) 02/12/2014 8 - GI Upset Date Reviewed: 02/21/2025 Reviewed by: Homer Bradford MD - Fully Assessed Prescriptions as of 03/05/2025 - furosemide (LASIX) 20 mg tablet Take 1 tablet by mouth two times a day. To get her to her appt with cardio - spironolactone (ALDACTONE) 25 mg tablet Take 1 tablet by mouth once daily. To get her to her appt with cardio - aspirin, enteric coated (ASPIRIN, ENTERIC COATED) 81 mg EC tablet Take 81 mg by mouth once daily. - ipratropium-albuterol (DUONEB) 0.5 mg-3 mg(2.5 mg base)/3 mL nebu 3 mL every 6 hours as needed for wheezing/shortness of breath. - vibegron (GEMTESA) 75 mg tablet Take 75 mg by mouth once daily. - omeprazole (PRILOSEC) 40 mg capsule Take 1 capsule by mouth once daily. - mupirocin (BACTROBAN) 2 % ointment Apply 2 FTUs to affected area three times a day x7 days - midodrine (PROAMATINE) 10 mg tablet Take 10 mg by mouth three times a day. - lovastatin 40 mg tablet TAKE 1 TABLET BY MOUTH DAILY AT BEDTIME. FOR CHOLESTEROL. - LORazepam (ATIVAN) 0.5 mg Take by mouth two times a day as needed. - fesoterodine (TOVIAZ) 4 mg Tb24 extended release tablet Take 4 mg by mouth once daily. - nitroglycerin sublingual (NITROQUICK) 0.4 mg SL tablet Dissolve 1 tablet under the tongue every 5 minutes as needed for chest pain. - MEDICAL SUPPLY Adult Size Pull On XXL/Bariatric needs 6 a day, Dx: N39.46, R15.9 and M62.81 - hyoscyamine SR (LEVBID) 0.375 mg 12 hr tablet Take 1 tablet by mouth two times a day. - MEDICAL SUPPLY Please replace pull up every 1.5-2 hrs while awake and 1-3 times a night to reduce risk of skin break down and secondary infections. #240 a month Dx: N39.46 and R15.9 - traZODone (DESYREL) 100 mg tablet 1 tablet daily at bedtime. Per psych: Dr. Alvarez, not on as of 11/16/2023 - QUEtiapine ER (SEROQUEL XR) 200 mg 24 hr tablet Take 1 tablet by mouth two times a day. Per psych, Dr. Negrete, not on as of 11/16/2023 - citalopram hydrobromide (CELEXA) 10 mg tablet Take 1 tablet by mouth once daily. Per psych, Dr. Negrete, - albuterol HFA (VENTOLIN HFA) 90 mcg/actuation inhaler INHALE 2 PUFFS INSTRUCTED EVERY FOUR HOU[address]. Christopher: Pulm - apixaban (ELIQUIS) 5 mg tab(s) Take 1 tablet by mouth twice daily. Per Cardio, Fish - COMPOUNDED PRESCRIPTION Adult diapers size XL Change diaper up to seven times a day. # 210 diapers With 5 refills Dx: R32 and R15.9 Problem List As Of Date 03/04/2025 Noted Resolved Hives [L50.9] 01/14/2014 Extrapyramidal reaction [G25.9] 01/14/2014 Hypotension [I95.9] 01/14/2014 Diabetic eye exam (HCC) [Z01.00, E11.9] 01/14/2014 Chronic pain [G89.29] 01/14/2014 Diabetic foot (HCC) [E11.8] 01/14/2014 Low back pain [M54.50] 01/14/2014 Mixed hyperlipidemia [E78.2] 01/14/2014 Chest pain [R07.9] 02/14/2014 Lumbosacral neuritis [M54.17] 04/16/2014 Myofascial pain [M79.18] 04/16/2014 Hypokalemia [E87.6] 07/23/2014 ASHD (arteriosclerotic heart disease) [I25.10] 10/25/2014 Physical deconditioning [R53.81] 04/02/2015 Chronic back pain greater than 3 months duratio*04/02/2015 Type 2 diabetes mellitus with stage 3b chronic *04/25/2015 Gastroesophageal reflux disease without esophag*04/25/2015 Chronic obstructive pulmonary disease (HCC) [J4*04/25/2015 History of CVA (cerebrovascular accident) [Z86.*04/25/2015 Bilateral leg edema [R60.0] 04/25/2015 Bipolar affe (more content not included)... Normal [facility] - Chemistry and C hemistry - challengeOrdered By: Jennifer Alba on 02-27-2025 Bilirubin Ql (U) Negative [facility] Glucose Ql (U) Negative [facility] Ketones Ql (U) Negative [facility] pH (U) 5 [pH] [facility] Specific gravity (U) [Rel density] 1.010 [facility] Urobilinogen (U) [Mass/Vol] 2 mg/dL [facility] - Hematology and Cell countsOrdered By: Jennifer Alba on 02-27-2025 Hemoglobin Ql (U) Negative [facility] - UrinalysisOrder ed By: Jennifer Alba on 02-27-2025 Nitrite Ql (U) Negative [facility] Protein Ql (U) Negative [facility] MR/BMS.BUSon 02-27-2025 MR/BMS.BUS Normal [facility] No Panel InformationOrdered By: Jennifer Alba on 02-27-2025 Urine Leukocytes Positive [facility] Urine Non-Hemolyzed Blood Negative [facility] Negative [facility] 2 mg/dL [facility] 1.010 [facility] 5 [facility] Positive [facility] CNOVon 02-21-2025 CNOV Office Visit (FAMPWS ) PERNELL RODRIGUEZ ([id number]) 1960 F Date Time Provider Department 02/21/25 1:00 PM HOMER BRADFORD FAMPWS During your visit today, we recorded the following information about you: Pulse Blood pressure Weight Height 92/minute 87/52 112.9 kg 1.575 m Homer Bradford MD 02/21/2025 8:17 PM Signed Chief Complaint Patient presents with: Follow Up: Mentions an anal gland odor LESION, SKIN: Has sore on buttocks. Mentioned at last OV 01/25/25 Pain (Shoulder Pain): Left shoulder pain HPI Pernell Rodriguez is a 65 year old female who presents here today for a 2 month follow up. Patient with very extensive complex medical Hx as reviewed on problem list. Her mental health issues and being homeless do affect her ability for care and being compliant. Pt following up from previous office. Since last visit pt has been seen twice for a Hospital f/u, urinary frequency, and pressure injury sacral area. Pernell Rodriguez is a 65-year-old female with a history of homelessness, presenting for follow-up on multiple chronic conditions and acute concerns. Pernell reports ongoing issues with a sore on her buttocks, which has increased in size. She is under the care of a cycle specialist, who removed the scab, but she missed a recent appointment due to transportation issues. She also reports a history of a sore on the front of her leg, which was deemed perfect by her cycle specialist. She denies recent fevers or chills. She has a history of a injured rotator cuff in her shoulder. She received a corticosteroid injection and attended one physical therapy session but was unable to continue due to transportation issues. She requests a sling to support her arm. She reports episodes of foot swelling and redness. She denies any lumps or swelling in her neck. She has a history of low blood pressure, managed by Dr. Calderón, a neurologist, who prescribed Florinef. She missed a recent appointment with Dr. Calderón and needs to reschedule. She denies wheezing, dyspnea, hemoptysis, chest pain, or palpitations. She reports three episodes of diarrhea and emesis in the past month, with the last episode occurring last week. She has since modified her diet to include yogurt and dora barrett, which she believes has helped. She denies dysuria or hematuria but has a history of frequent UTIs and needs to contact her bladder specialist, Dr. Melgoza, whose office was closed for renovations. She reports occasional symptoms of hypoglycemia, including shakiness, jitteriness, nausea, and diaphoresis. She denies frequent cephalalgia, syncope, or seizures. She notes a recent issue with her eye, describing a sensation of something in the corner, which she managed with a cold washcloth. She is currently smoking approximately once daily and has a history of quitting for about a week but resumed due to stress. She has a nebulizer at home and has an upcoming appointment with her instrument repairer, Dr. Christopher, on the . She is also trying to get more exercise and uses a roller walker for mobility. 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 She is currently staying with a friend and sleeps in a chair due to limited space. She is looking for a two-bedroom apartment on one floor. She denies any current contacts for emergencies or support. Past medical history, appointments, medications, allergies reviewed. Previous Medical History PAST MEDICAL HISTORY Diagnosis Date ASHD (arteriosclerotic heart disease) 10/25/[address] Goins Bilateral leg edema 04/25/2015 Bipolar affective disorder (HCC) 04/25/[address] Colindres Chest pain 02/14/[address] Jacob in [facility]. Had a normal cardiac CTA in 2009 with no calcium. Chronic back pain greater than 3 months duration 04/02/2015 Chronic insomnia 03/12/2020 Ilya Calderón ([facility]) on melatonin. Chronic obstructive pulmonary disease (HCC) 04/25/2015 Chronic pain 01/14/2014 Constipation 02/12/2014 [place] or callus 11/16/2015 Current use of proton pump inhibitor 10/11/2017 CVA (cerebral infarction) 01/14/2014 Diabetic eye exam (HCC) 01/14/[address] Sanchez last done 03/02/2019 Diabetic foot ([facility]) 01/14/[address] Martins Extrapyramidal reaction 01/14/2014 Gastroesophageal reflux disease without esophagitis 04/25/2015 History of CVA (cerebrovascular accident) 04/25/[address] Ilya Calderón ([facility]) Hives 01/14/2014 Hypotension 01/14/2014 Sees Ilya Calderón ([facility]) and has her on fludrocortisone Incontinence of feces 07/08/2017 Irritable bowel syndrome with both constipation and diarrhea 04/28/2017 Low back pain 01/14/2014 Low vitamin B12 level 07/16/2022 Lumbosacral neuritis 04/16/2014 Major depressive disorder, recurrent episode, moderate (HCC) 04/25/2015 On disability Migraine wit (more content not included)... Normal [facility] CNPNon 02-21-2025 CNPN Telephone (NAVWST) PERNELL RODRIGUEZ ([id number]) 1960 F Date Time Provider Department 02/21/25 ZOILA SAGE During your visit today, we recorded the following information about you: Zoila Sage MSW 02/21/2025 4:32 PM Signed Patient is currently staying with a lady at [address] [place] [address]. Patient notes that she has stayed therelonger then she should. Patient looking for a 2 bedroom apt. Patient reports that she will not go back to [facility]. Patient reports that she checked with [facility], but they do not have an open bed. Patient reports that she also had to pay $10.00 for taxi cab to get to doctor appt today. Sw asked patient if she knew about [employer] and their new curb to curb service. Patient reports that she is not aware of the new transportation program. Sw asked patient if she would like Sw to reach out to Jimy Zimmerman, [employer] to help with housing and transportation needs. Patient notes that would be helpful. [employer] also has the housing and support services program that used to be at 180. Zoila Sage MSW 02/21/2025 4:32 PM Signed Aaron called and spoke with Jimy Zimmerman, [employer]. Elsie reports that she will reach out to patient and help with housing and transportation linkage. Allergies As of Date: 02/21/2025 Noted Allergy Reaction PENICILLINS 03/30/2006 4 - Hives TETANUS, DIPHTHERIA TOX ABSORB AD*12/28/2014 7 - Swelling Comments: local reaction ASPIRIN 01/04/2023 16 - Unknown BENZTROPINE 02/12/2014 16 - Unknown DIAZEPAM 02/12/2014 16 - Unknown IMODIUM (LOPERAMIDE) 05/23/2018 14 - Other: See Comments Comments: Chest pain MELLARIL (THIORIDAZINE) 02/12/2014 8 - GI Upset PNEUMOVAX 23 (PNEUMOCOCCAL 23-SHARLA*12/25/2014 5 - Intolerance SULFA (SULFONAMIDE ANTIBIOTICS) 11/24/2015 8 - GI Upset Comments: Causes vomiting and rash TEGRETOL (CARBAMAZEPINE) 02/12/2014 8 - GI Upset Date Reviewed: 02/21/2025 Reviewed by: Homer Bradford MD - Fully Assessed Reason for Visit: Social Work Services [507] Prescriptions as of 02/22/2025 - aspirin, enteric coated (ASPIRIN, ENTERIC COATED) 81 mg EC tablet Take 81 mg by mouth once daily. - ipratropium-albuterol (DUONEB) 0.5 mg-3 mg(2.5 mg base)/3 mL nebu 3 mL every 6 hours as needed for wheezing/shortness of breath. - vibegron (GEMTESA) 75 mg tablet Take 75 mg by mouth once daily. - omeprazole (PRILOSEC) 40 mg capsule Take 1 capsule by mouth once daily. - furosemide (LASIX) 20 mg tablet Take 1 tablet by mouth two times a day. To get her to her appt with cardio - spironolactone (ALDACTONE) 25 mg tablet Take 1 tablet by mouth once daily. To get her to her appt with cardio - mupirocin (BACTROBAN) 2 % ointment Apply 2 FTUs to affected area three times a day x7 days - midodrine (PROAMATINE) 10 mg tablet Take 10 mg by mouth three times a day. - lovastatin 40 mg tablet TAKE 1 TABLET BY MOUTH DAILY AT BEDTIME. FOR CHOLESTEROL. - LORazepam (ATIVAN) 0.5 mg Take by mouth two times a day as needed. - fesoterodine (TOVIAZ) 4 mg Tb24 extended release tablet Take 4 mg by mouth once daily. - nitroglycerin sublingual (NITROQUICK) 0.4 mg SL tablet Dissolve 1 tablet under the tongue every 5 minutes as needed for chest pain. - MEDICAL SUPPLY Adult Size Pull On XXL/Bariatric needs 6 a day, Dx: N39.46, R15.9 and M62.81 - hyoscyamine SR (LEVBID) 0.375 mg 12 hr tablet Take 1 tablet by mouth two times a day. - MEDICAL SUPPLY Please replace pull up every 1.5-2 hrs while awake and 1-3 times a night to reduce risk of skin break down and secondary infections. #240 a month Dx: N39.46 and R15.9 - traZODone (DESYREL) 100 mg tablet 1 tablet daily at bedtime. Per psych: Dr. Alvarez, not on as of 11/16/2023 - QUEtiapine ER (SEROQUEL XR) 200 mg 24 hr tablet Take 1 tablet by mouth two times a day. Per psych, Dr. Negrete, not on as of 11/16/2023 - citalopram hydrobromide (CELEXA) 10 mg tablet Take 1 tablet by mouth once daily. Per psych, Dr. Negrete, - albuterol HFA (VENTOLIN HFA) 90 mcg/actuation inhaler INHALE 2 PUFFS INSTRUCTED EVERY FOUR HOURS NEEDED. Dr. Christopher: Pulm - apixaban (ELIQUIS) 5 mg tab(s) Take 1 tablet by mouth twice daily. Per Cardio, Fish - COMPOUNDED PRESCRIPTION Adult diapers size XL Change diaper up to seven times a day. # 210 diapers With 5 refills Dx: R32 and R15.9 Problem List As Of Date 02/21/2025 Noted Resolved Hives [L50.9] 01/14/2014 Extrapyramidal reaction [G25.9] 01/14/2014 Hypotension [I95.9] 01/14/2014 Diabetic eye exam (HCC) [Z01.00, E11.9] 01/14/2014 Chronic pain [G89.29] 01/14/2014 Diabetic foot (HCC) [E11.8] 01/14/2014 Low back pain [M54.50] 01/14/2014 Mixed hyperlipidemia [E78.2] 01/14/2014 Chest pain [R07.9] 02/14/2014 Lumbosacral neuritis [M54.17] 04/16/2014 Myofascial pain [M79.18] 04/16/2014 Hyp (more content not included)... Normal [facility] Pulmonary Visit Reporton Pulmonary Visit Report Normal [facility] Wound Ctr History AND Physic lesley 01-31-2025 Wound Ctr History & Physical Normal [facility] Bacteria Ur Culton Bacteria identified Cx Nom (U) ORGANISM ID: 1 50,000-<100,000 CFU/ml Normal urogenital maik Normal [facility] Comment on above: Performed By: #### 6 30-4 ####[facility] [id number] [address] OF [facility] CNOVon 01-25-2025 CNOV Office Visit (FAMPWS ) PERNELL RODRIGUEZ ([id number]) 1960 F Date Time Provider Department 01/25/25 11:40 AM [facility] During your visit today, we recorded the following information about you: Temperature Pulse Respiration Blood pressure 98.2 degrees 85/minute 18/minute 110/70 Weight 112 kg Meaagn Yusuf PA-C 01/25/2025 11:00 AM Signed Chief Complaint No chief complaint on file. HPI Pernellbrendan Rodriguez is a 64 year old female who presents here today for Urinary frequency. Urinary Frequency: - Increased urinary frequency for the past few days. - Denies hematuria. - Lower abdominal pain present. - Previous episode of similar symptoms; urine showed a small amount of blood. Buttocks Sore: - Pernell noticed a sore on the buttocks about a week ago. - Unable to see the sore but can feel it; located in the middle of the buttocks. - No cream or ointment applied. Allergies: - Pernell is allergic to penicillins and sulfa drugs. Past medical history, appointments, medications, allergies reviewed. Previous Medical History PAST MEDICAL HISTORY Diagnosis Date ASHD (arteriosclerotic heart disease) 10/25/[address] Goins Bilateral leg edema 04/25/2015 Bipolar affective disorder (HCC) 04/25/[address] Colindres Chest pain 02/14/[address] Jacob in [facility]. Had a normal cardiac CTA in 2009 with no calcium. Chronic back pain greater than 3 months duration 04/02/2015 Chronic insomnia 03/12/2020 Ilya Calderón ([facility]) on melatonin. Chronic obstructive pulmonary disease (HCC) 04/25/2015 Chronic pain 01/14/2014 Constipation 02/12/2014 [place] or callus 11/16/2015 Current use of proton pump inhibitor 10/11/2017 CVA (cerebral infarction) 01/14/2014 Diabetic eye exam ([facility]) 01/14/[address] Sanchez last done 03/02/2019 Diabetic foot ([facility]) 01/14/[address] Martins Extrapyramidal reaction 01/14/2014 Gastroesophageal reflux disease without esophagitis 04/25/2015 History of CVA (cerebrovascular accident) 04/25/[address] Ilya Calderón ([facility]) Hives 01/14/2014 Hypotension 01/14/2014 Sees Ilya Calderón ([facility]) and has her on fludrocortisone Incontinence of feces 07/08/2017 Irritable bowel syndrome with both constipation and diarrhea 04/28/2017 Low back pain 01/14/2014 Low vitamin B12 level 07/16/2022 Lumbosacral neuritis 04/16/2014 Major depressive disorder, recurrent episode, moderate ([facility]) 04/25/2015 On disability Migraine without aura and without status migrainosus, not intractable 04/28/[address] Calderón Mixed hyperlipidemia 01/14/2014 Mixed incontinence urge and stress (male)(female) 07/25/2018 Morbid obesity due to excess calories ([facility]) 10/27/2016 Muscle weakness (generalized) 07/25/2018 Myofascial pain 04/16/2014 Nodule of left lung 12/17/2015 CT 09/2018 still stable, no further CT's needed. Seen on CT of abd/pelv 11/2015. 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 Physical deconditioning 04/02/2015 PMH - PAST MEDICAL HISTORY OF ovarian cysts PMH - PAST MEDICAL HISTORY OF bladder tipped, has incontience PMH - PAST MEDICAL HISTORY OF irregular heart beat Smoker 11/20/2020 Started age 15 at 1.5 PPD Stage 3b chronic kidney disease (HCC) 11/24/2020 Tardive dyskinesia 03/12/2020 Ilya Calderón ([facility]) Type 2 diabetes mellitus with stage 3b chronic kidney disease (HCC) 04/25/2015 Type 2 diabetes mellitus without complication (HCC) 04/25/2015 Urinary incontinence 07/08/2017 Well adult exam 10/27/2016 last done: 06/09/2022 Previous Surgical History PAST SURGICAL HISTORY Procedure Laterality Date *STRESS TEST PC 05/06/2016 WNL 2D ECHO (EXEP) 01/14/2014 EF=65% Trival [place], [place], PI, LA enlarged. CARPAL TUNNEL Bilateral 08/28 and 09/25 COLONOSCOPY FLX DX W/COLLJ SPEC WHEN PFRMD 2011 tahir baron Colonoscopy, no polyps repeat 10 yrs CRYOCAUTERY OF CERVIX or 1990s twice DILATION AND CURETTAGE DXAND/THER NONOBSTETRIC Dilation AND curettage ESOPHAGOGASTRODUODENO SCOPY TRANSORAL DIAGNOSTIC EGD LIG/TRNSXJ FLP TUBE ABDL/VAG APPR UNI/BI Tubal ligation PAST SURGICAL HISTORY OF 07/2015 had left medial elbow sugery but can't explain for what. PAST SURGICAL HISTORY OF Right 2012 repair rotator cuff and bone spurs PAST SURGICAL HISTORY OF 09/09/2020 bladder interstim for overactive bladder per Dr. Alba PAST SURGICAL HISTORY OF cholecystectomy PT ED UROLOGY 08/2020 IPG Family History FAMILY HISTORY Problem Relation Age of Onset Hypertension Mother Diabetes Mother other (hysterectomy) Mother fibroids other (hysterectomy) Maternal Grandmother fibroids Heart Son irregular heart beat Cancer Paternal Aunt No Ocular Disease No (more content not included)... Normal [facility] UA DIP, URINE (POC)on 2024 BILIRUBIN UA (POCT) Negative Negative [facility] CLARITY [facility] (POCT) [facility]) Yellow [facility] GLUCOSE UA (POCT) Negative Negative mg/dL [facility] Hemoglobin Ql (U) Trace-intact Abnormal Negative [facility] Interpretation and review of laboratory results Abnormal [facility] KETONE UA (POCT) Negative Negative mg/dL [facility] LEUKOCYTES UA (POCT) Negative Negative [facility] NITRITE UA (POCT) Negative Negative [facility] PH UA (POCT) 6 4.5 - 8.0 [facility] Protein Ql (U) Negative Negative mg/dL [facility] SPECIFIC GRAVITY UA (POCT) 1.02 1.005 - 1.030 [facility] UROBILINOGEN UA (POCT) 0.2 Yolanda l E.U./dL [facility] Location:[facility], [address] [place] [address], [place], [place], [id number] [place] [address] POINT OF CARE [facility] Basic metabolic 2000 panelon 01-17-2025 Anion gap [Moles/Vol] 14 mmol/L Normal 8-15 [facility] Comment on above: Order Comment: Speci men Type: BLOOD SPECIMEN Ordering Facility: [facility] Address: [address] [place] [address] Performed By: #### 5 5454-3 #### [facility] CLIA [id number] [address] [place] [address] [place] Calcium [Mass/Vol] 9.8 mg/dL Normal 8.5-10.2 [facility] Comment on above: Order Comment: Speci men Type: BLOOD SPECIMEN Ordering Facility: [facility] Address: [address] [place] [address] Performed By: #### 5 5454-3 #### [facility] CLIA [id number] [address] [place] [address] [place] Chloride [Moles/Vol] 100 mmol/L Normal 98-107 [facility] Comment on above: Order Comment: Speci men Type: BLOOD SPECIMEN Ordering Facility: [facility] Address: [address] [place] [address] Performed By: #### 5 5454-3 #### [facility] CLIA [id number] [address] [place] [address] [place] CO2 [Moles/Vol] 26 mmol/L Normal 22-30 [facility] Comment on above: Order Comment: Speci men Type: BLOOD SPECIMEN Ordering Facility: [facility] Address: [address] [place] [address] Performed By: #### 5 5454-3 #### [facility] CLIA [id number] [address] [place] [address] [place] Creatinine [Mass/Vol] 1.54 mg/dL High 0.58-0.96 [facility] Comment on above: Order Comment: Speci men Type: BLOOD SPECIMEN Ordering Facility: [facility] Address: [address] [place] [address] Performed By: #### 5 5454-3 #### [facility] CLIA [id number] [address] [place] [address] [place] [facility] Creatinine and Glomerular filtration rate.predicted panel (S/P/Bld) 38 mL/min/1.73m??? Low >=60 [facility] Comment on above: Order Comment: Speci men Type: BLOOD SPECIMEN Ordering Facility: [facility] Address: [address] [place] [address] Result Comment: Maurilio mated Glomerular Filtration Rate (eGFR) is calculated using the 2020 CKD-EPI creatinine equation. This equation utilizes serum creatinine, sex, and age as parameters. The creatinine assay has traceable calibration to isotope dilution-mass spectrometry. Refer to KDIGO guidelines for clinical interpretation. In patients with unstable renal function, e.g. those with acute kidney injury, the eGFR may not accurately reflect actual GFR. Performed By: #### 5 5454-3 #### [facility] CLIA [id number] [address] [place] [address] [place] Glucose [Mass/Vol] 75 mg/dL Normal 74-99 [facility] Comment on above: Order Comment: Speci men Type: BLOOD SPECIMEN Ordering Facility: [facility] Address: [address] [place] [address] Result Comment: The [place] Diabetes Association (ADA) provides guidance for cutoff values for fasting glucose and random glucose. The ADA defines fasting as no caloric intake for at least 8 hours. Fasting plasma glucose results between 100 to 125 mg/dL indicate increased risk for diabetes (prediabetes). Fasting plasma glucose results greater than or equal to 126 mg/dL meet the criteria for diagnosis of diabetes. In the absence of unequivocal hyperglycemia, results should be confirmed by repeat testing. In a patient with classic symptoms of hyperglycemia or hyperglycemic crisis, random plasma glucose results greater than or equal to 200 mg/dL meet the criteria for diagnosis of diabetes. Reference: Standards of Medical Care in Diabetes 2016, [place] Diabetes Association. Diabetes Care. 2016.39(Suppl 1). Performed By: #### 5 5454-3 #### [facility] CLIA [id number] [address] [place] [address] [place] Potassium [Moles/Vol] 3.9 mmol/L Normal 3.7-5.1 [facility] Comment on above: Order Comment: Speci men Type: BLOOD SPECIMEN Ordering Facility: [facility] Address: [address] [place] [address] Performed By: #### 5 5454-3 #### [facility] CLIA [id number] [address] [place] [address] [place] Sodium [Moles/Vol] 140 mmol/L Normal 136-144 [facility] Comment on above: Order Comment: Savannai deandre Type: BLOOD SPECIMEN Ordering Facility: [facility] Address: [address] [place] [address] Performed By: #### 5 5454-3 #### [facility] CLIA [id number] [address] [place] [address] [place] Urea nitrogen [Mass/Vol] 17 mg/dL Normal 7-21 [facility] Comment on above: Order Comment: Savannai men Type: BLOOD SPECIMEN Ordering Facility: [facility] Address: [address] [place] [address] Performed By: #### 5 5454-3 #### [facility] CLIA [id number] [facility] [place] [address] [place] CBC W Auto Differential pane l (Bld)on 01-17-2025 Basophils (Bld) [#/Vol] 0.05 10*3/uL [facility] Basophils/100 WBC (Bld) 0.5 % [facility] Differential cell count method Nom (Bld) Auto [facility] Eosinophils (Bld) [#/Vol] 0.22 10*3/uL [facility] Eosinophils/100 WBC (Bld) 2.3 % [facility] Erythrocyte distribution width (RBC) [Ratio] 13.9 % 11.5 - 15.0 % [facility] Hematocrit (Bld) [Volume fraction] 45.2 % 36.0 - 46.0 % [facility] Hemoglobin (Bld) [Mass/Vol] 14.5 g/dL 11.5 - 15.5 g/dL [facility] Immature granulocytes (Bld) [#/Vol] 0.03 10*3/uL [facility] Immature granulocytes/100 WBC (Bld) 0.3 % [facility] Interpretation and review of laboratory results Abnormal [facility] Lymphocytes (Bld) [#/Vol] 2.28 10*3/uL [facility] Lymphocytes/100 WBC (Bld) 23.8 % [facility] MCH (RBC) [Entitic mass] 30.7 pg 26. 0 - 34.0 pg [facility] MCHC (RBC) [Mass/Vol] 32.1 g/dL 30.5 - 36.0 g/dL [facility] MCV (RBC) [Entitic vol] 95.6 fL 80.0 - 100.0 fL [facility] Monocytes (Bld) [#/Vol] 0.87 10*3/uL High [facility] Monocytes/100 WBC (Bld) 9.1 % [facility] Neutrophils (Bld) [#/Vol] 6.11 10*3/uL [facility] Neutrophils/100 WBC (Bld) 64 % [facility] Nucleated RBC (Bld) [#/Vol] [facility] Nucleated RBC/100 WBC (Bld) [Ratio] 0 % /100 WBC [facility] Platelet mean volume (Bld) [Entitic vol] 11.1 fL 9.0 - 12.7 fL [facility] Platelets (Bld) [#/Vol] 277 10*3/uL [facility] RBC (Bld) [#/Vol] 4.73 10*6/uL 3.90 - 5.2 0 m/uL [facility] WBC (Bld) [#/Vol] 9.56 10*3/uL [facility] Basophils (Bld) [#/Vol] 0.05 10*3/uL Normal <0.11 [facility] Comment on above: Order Comment: Speci men Type: BLOOD SPECIMEN Ordering Facility: [facility] Address: [address] [place] [address] Performed By: #### 5 7021-8 #### [facility] CLIA [id number] [address] [place] [address] [place] Basophils/100 WBC (Bld) 0.5 % Normal C [facility] Comment on above: Order Comment: Speci men Type: BLOOD SPECIMEN Ordering Facility: [facility] Address: [address] [place] [address] Performed By: #### 5 7021-8 #### [facility] CLIA [id number] [address] [place] [address] [place] Differential cell count method Nom (Bld) Auto Normal [facility] Comment on above: Order Comment: Speci men Type: BLOOD SPECIMEN Ordering Facility: [facility] Address: [address] [place] [address] Performed By: #### 5 7021-8 #### [facility] CLIA [id number] [address] [place] [address] [place] Eosinophils (Bld) [#/Vol] 0.22 10*3/uL Normal <0.46 [facility] Comment on above: Order Comment: Speci men Type: BLOOD SPECIMEN Ordering Facility: [facility] Address: [address] [place] [address] Performed By: #### 5 7021-8 #### [facility] CLIA [id number] [address] [place] [address] [place] Eosinophils/100 WBC (Bld) 2.3 % Normal [facility] Comment on above: Order Comment: Speci men Type: BLOOD SPECIMEN Ordering Facility: [facility] Address: [address] [place] [address] Performed By: #### 5 7021-8 #### [facility] CLIA [id number] [address] [place] [address] [place] Erythrocyte distribution width (RBC) [Ratio] 13.9 % Normal 11.5-15.0 [facility] Comment on above: Order Comment: Speci men Type: BLOOD SPECIMEN Ordering Facility: [facility] Address: [address] [place] [address] Performed By: #### 5 7021-8 #### [facility] CLIA [id number] [address] [place] [address] [place] Hematocrit (Bld) [Volume fraction] 45.2 % Normal 36.0-46.0 [facility] Comment on above: Order Comment: Speci men Type: BLOOD SPECIMEN Ordering Facility: [facility] Address: [address] [place] [address] Performed By: #### 5 7021-8 #### [facility] CLIA [id number] [address] [place] [address] [place] Hemoglobin (Bld) [Mass/Vol] 14.5 g/dL Normal 11.5-15.5 [facility] Comment on above: Order Comment: Speci men Type: BLOOD SPECIMEN Ordering Facility: [facility] Address: [address] [place] [address] Performed By: #### 5 7021-8 #### [facility] CLIA [id number] [address] [place] [address] [place] Immature granulocytes (Bld) [#/Vol] 0.03 10*3/uL Normal <0.10 [facility] Comment on above: Order Comment: Speci men Type: BLOOD SPECIMEN Ordering Facility: [facility] Address: [address] [place] [address] Performed By: #### 5 7021-8 #### [facility] CLIA [id number] [address] [place] [address] [place] Immature granulocytes/100 WBC (Bld) 0.3 % Normal [facility] Comment on above: Order Comment: Speci men Type: BLOOD SPECIMEN Ordering Facility: [facility] Address: [address] [place] [address] Performed By: #### 5 7021-8 #### [facility] CLIA [id number] [address] [place] [address] [place] Lymphocytes (Bld) [#/Vol] 2.28 10*3/uL Normal 1.00-4.00 [facility] Comment on above: Order Comment: Speci men Type: BLOOD SPECIMEN Ordering Facility: [facility] Address: [address] [place] [address] Performed By: #### 5 7021-8 #### [facility] CLIA [id number] [address] [place] [address] [place] Lymphocytes/100 WBC (Bld) 23.8 % Normal [facility] Comment on above: Order Comment: Speci men Type: BLOOD SPECIMEN Ordering Facility: [facility] Address: [address] [place] [address] Performed By: #### 5 7021-8 #### [facility] CLIA [id number] [address] [place] [address] [place] MCH (RBC) [Entitic mass] 30.7 pg Normal 26.0-34.0 [facility] Comment on above: Order Comment: Speci men Type: BLOOD SPECIMEN Ordering Facility: [facility] Address: [address] [place] [address] Performed By: #### 5 7021-8 #### [facility] CLIA [id number] [address] [place] [address] [place] MCHC (RBC) [Mass/Vol] 32.1 g/dL Normal 30.5-36.0 [facility] Comment on above: Order Comment: Speci men Type: BLOOD SPECIMEN Ordering Facility: [facility] Address: [address] [place] [address] Performed By: #### 5 7021-8 #### [facility] CLIA [id number] [address] [place] [address] [place] MCV (RBC) [Entitic vol] 95.6 fL Normal 80.0-100.0 [facility] Comment on above: Order Comment: Speci men Type: BLOOD SPECIMEN Ordering Facility: [facility] Address: [address] [place] [address] Performed By: #### 5 7021-8 #### [facility] CLIA [id number] [address] [place] [address] [place] Monocytes (Bld) [#/Vol] 0.87 10*3/uL High <0.87 [facility] Comment on above: Order Comment: Speci men Type: BLOOD SPECIMEN Ordering Facility: [facility] Address: [address] [place] [address] Performed By: #### 5 7021-8 #### [facility] CLIA [id number] [address] [place] [address] [place] Monocytes/100 WBC (Bld) 9.1 % Normal [facility] Comment on above: Order Comment: Speci men Type: BLOOD SPECIMEN Ordering Facility: [facility] Address: [address] [place] [address] Performed By: #### 5 7021-8 #### [facility] CLIA [id number] [address] [place] [address] [place] Neutrophils (Bld) [#/Vol] 6.11 10*3/uL Normal 1.45-7.50 [facility] Comment on above: Order Comment: Speci men Type: BLOOD SPECIMEN Ordering Facility: [facility] Address: [address] [place] [address] Performed By: #### 5 7021-8 #### [facility] CLIA [id number] [address] [place] [address] [place] Neutrophils/100 WBC (Bld) 64.0 % Normal [facility] Comment on above: Order Comment: Speci men Type: BLOOD SPECIMEN Ordering Facility: [facility] Address: [address] [place] [address] Performed By: #### 5 7021-8 #### [facility] CLIA [id number] [address] [place] [address] [place] Nucleated RBC (Bld) [#/Vol] 10*3/uL Normal <0.01 [facility] Comment on above: Order Comment: Speci men Type: BLOOD SPECIMEN Ordering Facility: [facility] Address: [address] [place] [address] Performed By: #### 5 7021-8 #### [facility] CLIA [id number] [address] [place] [address] [place] Nucleated RBC/100 WBC (Bld) [Ratio] 0.0 /100 WBC Normal [facility] Comment on above: Order Comment: Speci men Type: BLOOD SPECIMEN Ordering Facility: [facility] Address: [address] [place] [address] Performed By: #### 5 7021-8 #### [facility] CLIA [id number] [address] [place] [address] [place] Platelet mean volume (Bld) [Entitic vol] 11.1 fL Normal 9.0-12.7 [facility] Comment on above: Order Comment: Speci men Type: BLOOD SPECIMEN Ordering Facility: [facility] Address: [address] [place] [address] Performed By: #### 5 7021-8 #### [facility] CLIA [id number] [address] [place] [address] [place] Platelets (Bld) [#/Vol] 277 10*3/uL Normal 150-400 [facility] Comment on above: Order Comment: Speci men Type: BLOOD SPECIMEN Ordering Facility: [facility] Address: [address] [place] [address] Performed By: #### 5 7021-8 #### [facility] CLIA [id number] [address] [place] [address] [place] RBC (Bld) [#/Vol] 4.73 10*6/uL Normal 3.90-5.[address] [facility] Comment on above: Order Comment: Speci men Type: BLOOD SPECIMEN Ordering Facility: [facility] Address: [address] [place] [address] Performed By: #### 5 7021-8 #### [facility] CLIA [id number] [address] [place] [address] [place] WBC (Bld) [#/Vol] 9.56 10*3/uL Normal 3.70-11.[address] [facility] Comment on above: Order Comment: Speci men Type: BLOOD SPECIMEN Ordering Facility: [facility] Address: [address] [place] [address] Performed By: #### 5 7021-8 #### [facility] IA [id number] [address] [place] [address] [place] CNOVon 01-17-2025 CNOV Office Visit (FAMPWS ) PERNELL RODRIGUEZ ([id number]) 1960 F Date Time Provider Department 01/17/25 11:40 AM MEAGAN YUSUF During your visit today, we recorded the following information about you: Temperature Pulse Respiration Blood pressure 99.5 degrees 79/minute 18/minute 120/68 Weight 111.6 kg Meagan Yusuf PA-C 01/17/2025 12:02 PM Signed Chief Complaint Patient presents with: Hospital F/U HPI Pernell Rodriguez is a 64 year old female who presents here today for Hospital Discharge Follow up.. Heat Stroke: - Hospitalized from January 08 to January 11 after passing out while walking to the bank; patient states she was diagnosed with heat stroke. - Reports a previous incident where she experienced chest pain and a blood clot that popped and caused a late stroke. - CT brain was negative. - Urine and blood cultures were negative, but Pernell met criteria for sepsis and was treated with antibiotics. - A1c was 6% during hospitalization. - Has been working on getting her speciality appts scheduled. Homelessness: - Homeless since July; staying with a friend but will move to [employer] around the or . 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 Wound on Left Leg: - Pernell has a wound on the back of the left leg; unaware of its presence until recently. - Ultrasound performed on both legs due to significant swelling. - No appointments scheduled with the wound center. Renal Injury: - Experienced a kidney injury during hospitalization, which improved with fluids. - Has seen Dr. St before but has no current appointment scheduled. - Needs blood tests done before seeing Dr. St. Psychiatric Care: - Psychiatrist is Dr. negrete; has an appointment in February. Cardiology: - Has been trying to get in touch with supervisor electronics assembly Deann Goins NP, but has had difficulty reaching her office. Past medical history, appointments, medications, allergies reviewed. Previous Medical History PAST MEDICAL HISTORY Diagnosis Date ASHD (arteriosclerotic heart disease) 10/25/[address] Goins Bilateral leg edema 04/25/2015 Bipolar affective disorder (HCC) 04/25/[address] Colindres Chest pain 02/14/[address] Jacob in [place]. Had a normal cardiac CTA in 2009 with no calcium. Chronic back pain greater than 3 months duration 04/02/2015 Chronic insomnia 03/12/2020 Ilya Calderón ([facility]) on melatonin. Chronic obstructive pulmonary disease (HCC) 04/25/2015 Chronic pain 01/14/2014 Constipation 02/12/2014 [place] or callus 11/16/2015 Current use of proton pump inhibitor 10/11/2017 CVA (cerebral infarction) 01/14/2014 Diabetic eye exam (HCC) 01/14/[address] Sanchez last done 03/02/2019 Diabetic foot ([facility]) 01/14/[address] Martins Extrapyramidal reaction 01/14/2014 Gastroesophageal reflux disease without esophagitis 04/25/2015 History of CVA (cerebrovascular accident) 04/25/[address] Ilya Calderón ([facility]) Hives 01/14/2014 Hypotension 01/14/2014 Sees Ilya Calderón ([facility]) and has her on fludrocortisone Incontinence of feces 07/08/2017 Irritable bowel syndrome with both constipation and diarrhea 04/28/2017 Low back pain 01/14/2014 Low vitamin B12 level 07/16/2022 Lumbosacral neuritis 04/16/2014 Major depressive disorder, recurrent episode, moderate ([facility]) 04/25/2015 On disability Migraine without aura and without status migrainosus, not intractable 04/28/[address] Calderón Mixed hyperlipidemia 01/14/2014 Mixed incontinence urge and stress (male)(female) 07/25/2018 Morbid obesity due to excess calories ([facility]) 10/27/2016 Muscle weakness (generalized) 07/25/2018 Myofascial pain 04/16/2014 Nodule of left lung 12/17/2015 CT 09/2018 still stable, no further CT's needed. Seen on CT of abd/pelv 11/2015. 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 Physical deconditioning 04/02/2015 PMH - PAST MEDICAL HISTORY OF ovarian cysts PMH - PAST MEDICAL HISTORY OF bladder tipped, has incontience PMH - PAST MEDICAL HISTORY OF irregular heart beat Smoker 11/20/2020 Started age 15 at 1.5 PPD Stage 3b chronic kidney disease (HCC) 11/24/2020 Tardive dyskinesia 03/12/2020 Ilya Stephane ([facility]) Type 2 diabetes mellitus with stage 3b chronic kidney disease (HCC) 04/25/2015 Type 2 diabetes mellitus without complication (HCC) 04/25/2015 Urinary incontinence 07/08/2017 Well adult exam 10/27/2016 last done: 06/09/2022 Previous Surgical History PAST SURGICAL HISTORY Procedure Laterality Date *STRESS TEST PC (more content not included)... Normal [facility] Culture, Blood (WB)on 2024 CUB Blood cultures x2, from two different sites No growth in 5 days. Normal [facility] Comment on above: Performed By: #### M 200.1000 ####[facility] [address] [place], [place], [address] Bedside Glucoseon 01-11-2025 FINGERSTICK GLU 121 mg/dL High 74-106 [facility] Comment on above: Result Comment: BJ GEMENT OF PATIENT CARE PER NURSING PROTOCOL Performed By: #### L 501.080 ####[facility] [address] [place], [place], [address] FINGERSTICK GLU 88 mg/dL Normal 74-106 [facility] Comment on above: Result Comment: BJ GEMENT OF PATIENT CARE PER NURSING PROTOCOL Performed By: #### L 501.080 ####[facility] [address] [place], [address] CNPNon 01-11-2025 CNPN Telephone (FAMPWS) PERNELL RODRIGUEZ ([id number]) 1960 F IPA Date Time Provider Department 01/11/25 HOMER BRADFORD During your visit today, we recorded the following information about you: Jose Jarrell MA 01/11/2025 3:49 PM Signed Type of form: Medical Necessity - received from [facility] Delivery Form received via fax When form is completed, Fax form to [phone] Form has been forwarded to Physician Desk: TAMRA Reynolds Rilee, MA 01/11/2025 3:53 PM Signed Provider signed and faxed back to number below. Jose Jarrell MA Allergies As of Date: 01/11/2025 Noted Allergy Reaction PENICILLINS 03/30/2006 4 - Hives TETANUS, DIPHTHERIA TOX ABSORB AD*12/28/2014 7 - Swelling Comments: local reaction ASPIRIN 01/04/2023 16 - Unknown BENZTROPINE 02/12/2014 16 - Unknown DIAZEPAM 02/12/2014 16 - Unknown IMODIUM (LOPERAMIDE) 05/23/2018 14 - Other: See Comments Comments: Chest pain MELLARIL (THIORIDAZINE) 02/12/2014 8 - GI Upset PNEUMOVAX 23 (PNEUMOCOCCAL 23-SHARLA*12/25/2014 5 - Intolerance SULFA (SULFONAMIDE ANTIBIOTICS) 11/24/2015 8 - GI Upset Comments: Causes vomiting and rash TEGRETOL (CARBAMAZEPINE) 02/12/2014 8 - GI Upset Date Reviewed: 12/18/2024 Reviewed by: Homer Bradford MD - Fully Assessed Reason for Visit: Forms [913] Cmt: CMN Prescriptions as of 01/11/2025 - lovastatin 40 mg tablet TAKE 1 TABLET BY MOUTH DAILY AT BEDTIME. FOR CHOLESTEROL. - LORazepam (ATIVAN) 0.5 mg Take by mouth two times a day as needed. - fesoterodine (TOVIAZ) 4 mg Tb24 extended release tablet Take 4 mg by mouth once daily. - spironolactone (ALDACTONE) 25 mg tablet Take 1 tablet by mouth once daily. To get her to her appt with cardio - furosemide (LASIX) 20 mg tablet Take 1 tablet by mouth two times a day. To get her to her appt with cardio - nitroglycerin sublingual (NITROQUICK) 0.4 mg SL tablet Dissolve 1 tablet under the tongue every 5 minutes as needed for chest pain. - MEDICAL SUPPLY Adult Size Pull On XXL/Bariatric needs 6 a day, Dx: N39.46, R15.9 and M62.81 - omeprazole (PRILOSEC) 40 mg capsule Take 1 capsule by mouth once daily. - hyoscyamine SR (LEVBID) 0.375 mg 12 hr tablet Take 1 tablet by mouth two times a day. - MEDICAL SUPPLY Please replace pull up every 1.5-2 hrs while awake and 1-3 times a night to reduce risk of skin break down and secondary infections. #240 a month Dx: N39.46 and R15.9 - traZODone (DESYREL) 100 mg tablet 1 tablet daily at bedtime. Per psych: Dr. Alvarez, not on as of 11/16/2023 - ipratropium-albuterol (DUONEB) 0.5 mg-3 mg(2.5 mg base)/3 mL nebu Inhale 3 mL as instructed every 3 hours as needed for wheezing/shortness of breath. For SOB related to ACUTE RESPIRATORY FAILURE WITH HYPOXIA (J96.01) while awake, Dr. Dallin Christopher: Pulm. not on as of 11/16/2023 - rimegepant (NURTEC ODT) 75 mg disintegrating tablet Take 1 tablet by mouth once daily as needed. Per Neuro, not on as of 11/16/2023 - cyanocobalamin (VITAMIN B-12) 500 mcg tablet Take 1 tablet by mouth once daily. not on as of 11/16/2023 - amantadine HCl (SYMMETREL) 100 mg capsule Take 1 capsule by mouth two times a day. Per Neuro, Dr. Calderón, not on as of 11/16/2023 - fludrocortisone (FLORINEF) 0.1 mg tablet Take 1 tablet by mouth once daily. Per Neuro, Dr. Calderón, not on as of 11/16/2023 - QUEtiapine ER (SEROQUEL XR) 200 mg 24 hr tablet Take 1 tablet by mouth two times a day. Per psych, Dr. Negrete, not on as of 11/16/2023 - citalopram hydrobromide (CELEXA) 10 mg tablet Take 1 tablet by mouth once daily. Per psych, Dr. Negrete, - albuterol HFA (VENTOLIN HFA) 90 mcg/actuation inhaler INHALE 2 PUFFS INSTRUCTED EVERY FOUR HOURS NEEDED. Dr. Christopher: Pulm - melatonin (MELATIN ORAL) Take by mouth as directed. - apixaban (ELIQUIS) 5 mg tab(s) Take 1 tablet by mouth twice daily. Per Cardio, Fish - COMPOUNDED PRESCRIPTION Adult diapers size XL Change diaper up to seven times a day. # 210 diapers With 5 refills Dx: R32 and R15.9 - omega-3 fatty acids 1,000 mg cap Take 2 capsules by mouth once daily. Problem List As Of Date 01/11/2025 Noted Resolved Hives [L50.9] 01/14/2014 Extrapyramidal reaction [G25.9] 01/14/2014 Hypotension [I95.9] 01/14/2014 Diabetic eye exam (HCC) [Z01.00, E11.9] 01/14/2014 Chronic pain [G89.29] 01/14/2014 Diabetic foot (HCC) [E11.8] 01/14/2014 Low back pain [M54.50] 01/14/2014 Mixed hyperlipidemia [E78.2] 01/14/2014 Chest pain [R07.9] 02/14/2014 Lumbosacral neuritis [M54.17] 04/16/2014 Myofascial pain [M79.18] 04/16/2014 Hypokalemia [E87.6] 07/23/2014 ASHD (arteriosclerotic heart disease) [I25.10] 10/25/2014 Physical deconditioning [R53.81] 04/02/2015 Chronic back pain greater than 3 months duratio*04/02/2015 Type 2 diabetes mellitus with stage 3b chronic *04/25/2015 Gastroesophageal reflux disease without esophag*04/25/2015 Chronic ob (more content not included)... Normal [facility] Discharge Instructionon 12-17 Discharge Instruction Normal [facility] Glucose measurement at [facility] deOrdered By: Peter Herbert on 01-11-2025 Glucose [Mass/Vol] 121 mg/dL High 74-106 [facility] Comment on above: MANAGEMENT OF PATIEN T CARE PER NURSING PROTOCOL Anion gap in Serum or Plasma Ordered By: Luis Antonio Navraro on 01-10-2025 Anion gap [Moles/Vol] 12 mmol/L 5-15 [facility] BUN/creatinine ratioOrdered By: Luis Antonio Navarro on 01-10-2025 Urea nitrogen/Creatinine [Mass ratio] 9.7 mg/mg Low 10-20 [facility] Basic Metabolic Profile (BMP )on 01-10-2025 BUN/CRE 9.7 RATIO Low 10-20 [facility] Comment on above: Performed By: #### L 500.2500, L100.0500 ####[facility] [address] [place], [address] Calcium [Mass/Vol] 8.9 mg/dL Normal 7.6-11.0 [facility] Comment on above: Performed By: #### L 500.2500, L100.0500 ####[facility] [address] [place], [address] Chloride [Moles/Vol] 112 mmol/L High 98-108 [facility] Comment on above: Performed By: #### L 500.2500, L100.0500 ####[facility] [address] [place], [address] CO2 [Moles/Vol] 19.9 mmol/L Low 21.0-32.0 [facility] Comment on above: Performed By: #### L 500.2500, L100.0500 ####[facility] [address] [place], [address] Creatinine [Mass/Vol] 1.25 mg/dL High 0.70-1.20 [facility] Comment on above: Performed By: #### L 500.2500, L100.0500 ####[facility] [address] [place], [address] ECRCL 55.62 ml/min Normal 50-250 [facility] Comment on above: Performed By: #### L 500.2500, L100.0500 ####[facility] [address] [place], [address] GAP 12 Normal 5-15 [facility] Comment on above: Performed By: #### L 500.2500, L100.0500 ####[facility] [address] [place], [address] GFR/1.73 sq M.predicted among non-blacks MDRD (S/P/Bld) [Vol rate/Area] 49 mL/min/{1.73_m2} Low >60 [facility] Comment on above: Result Comment: mL/m in/1.73m2 CKD-EPI Creatinine Equation (2020) Performed By: #### L 500.2500, L100.0500 ####[facility] [address] [place], [address] Glucose [Mass/Vol] 92 mg/dL Normal 70-99 [facility] Comment on above: Performed By: #### L 500.2500, L100.0500 ####[facility] [address] [place], [address] Potassium [Moles/Vol] 3.5 mmol/L Normal 3.3-5.1 [facility] Comment on above: Performed By: #### L 500.2500, L100.0500 ####[facility] [address] [place], [address] Sodium [Moles/Vol] 144 mmol/L Normal 133-145 [facility] Comment on above: Performed By: #### L 500.2500, L100.0500 ####[facility] [address] [place], [address] Urea nitrogen [Mass/Vol] 12 mg/dL Normal 4-19 [facility] Comment on above: Performed By: #### L 500.2500, L100.0500 ####[facility] [address] [place], [address] Bedside Glucoseon 01-10-2025 FINGERSTICK GLU 107 mg/dL High 74-106 [facility] Comment on above: Result Comment: BJ GEMENT OF PATIENT CARE PER NURSING PROTOCOL Performed By: #### L 501.080 ####[facility] [address] [place], [address] FINGERSTICK GLU 96 mg/dL Normal 74-106 [facility] Comment on above: Result Comment: BJ GEMENT OF PATIENT CARE PER NURSING PROTOCOL Performed By: #### L 501.080 ####[facility] [address] [place], [address] FINGERSTICK GLU 108 mg/dL High 74-106 [facility] Comment on above: Result Comment: BJ GEMENT OF PATIENT CARE PER NURSING PROTOCOL Performed By: #### L 501.080 ####[facility] [address] [place], [address] FINGERSTICK GLU 90 mg/dL Normal 74-106 [facility] Comment on above: Result Comment: BJ GEMENT OF PATIENT CARE PER NURSING PROTOCOL Performed By: #### L 501.080 ####[facility] [address] [place], [address] CBC-Complete Blood Cnt No Di ffon 01-10-2025 Erythrocyte distribution width (RBC) [Ratio] 13.7 % Normal 11.6-14.6 [facility] Comment on above: Performed By: #### L 500.2500, L100.0500 ####[facility] [address] [place], [address] Hematocrit (Bld) [Volume fraction] 37.8 % Normal 37-47 [facility] Comment on above: Performed By: #### L 500.2500, L100.0500 ####[facility] [address] [place], [address] Hemoglobin (Bld) [Mass/Vol] 12.3 g/dL Normal 12.0-15.0 [facility] Comment on above: Performed By: #### L 500.2500, L100.0500 ####[facility] [address] [place], [address] MCH (RBC) [Entitic mass] 30.9 pg Normal 27.0-32.0 [facility] Comment on above: Performed By: #### L 500.2500, L100.0500 ####[facility] [address] [place], [address] MCHC (RBC) [Mass/Vol] 32.5 g/dL Normal 32-36 [facility] Comment on above: Performed By: #### L 500.2500, L100.0500 ####[facility] [address] [place], [id number] MCV (RBC) [Entitic vol] 95.0 fL Normal 81-99 [facility] Comment on above: Performed By: #### L 500.2500, L100.0500 ####[facility] [address] [place], [address] Platelet mean volume (Bld) [Entitic vol] 10.4 fL Normal 6.2-12.0 [facility] Comment on above: Performed By: #### L 500.2500, L100.0500 ####[facility] [address] [place], [address] Platelets (Bld) [#/Vol] 216 10*3/uL Normal 150-450 [facility] Comment on above: Performed By: #### L 500.2500, L100.0500 ####[facility] [address] [place], [address] RBC (Bld) [#/Vol] 3.98 10*6/uL Low 4.2-5.4 [facility] Comment on above: Performed By: #### L 500.2500, L100.0500 ####[facility] [address] [place], [address] RDW SD 48.2 fl High 35.1-43.9 [facility] Comment on above: Performed By: #### L 500.2500, L100.0500 ####[facility] [address] [place], [address] WBC (Bld) [#/Vol] 9.3 10*3/uL Normal 4.4-11.0 [facility] Comment on above: Performed By: #### L 500.2500, L100.0500 ####[facility] [address] [place], [address] Carbon dioxide, total [Moles /volume] in Central venous bloodOrdered By: Luis Antonio Navarro on 01-10-2025 CO2 [Moles/Vol] 19.9 mmol/L Low 21.0-32.0 [facility] Chloride assayOrdered By: Garry Navarro on 01-10-2025 Chloride [Moles/Vol] 112 mmol/L High 98-108 [facility] Erythrocyte distribution wid th ratioOrdered By: Luis Antonio Navarro on 01-10-2025 Erythrocyte distribution width (RBC) [Ratio] 13.7 % 11.6-14.6 [facility] Erythrocyte distribution wid th standard deviationOrdered By: Luis Antonio Navarro on 01-10-2025 Erythrocyte distribution width (RBC) [Ratio] 48.2 fl High 35.1-43.9 [facility] Glomerular filtration rate ( GFR) estimation/1.73 sq m using serum, plasma, or whole bOrdered By: Luis Antonio Navarro on 01-10-2025 GFR/1.73 sq M.predicted among non-blacks MDRD (S/P/Bld) [Vol rate/Area] 49 mL/min/{1.73_m2} Low >60 [facility] Comment on above: mL/min/1.73m2 CKD-EP I Creatinine Equation (2020) Hematocrit Auto (Bld) [Volum e fraction]Ordered By: Luis Antonio Navarro on 01-10-2025 Hematocrit (Bld) [Volume fraction] 37.8 % 37-47 [facility] Hemoglobin measurementOrdere d By: Luis Antonio Navarro on 01-10-2025 Hemoglobin (Bld) [Mass/Vol] 12.3 g/dL 12.0-15.0 [facility] MCV (mean corpuscular volume ) determinationOrdered By: Luis Antonio Navarro on 01-10-2025 MCV (RBC) [Entitic vol] 95.0 fL 81-99 [facility] Mean corpuscular hemoglobin (MCH) determinationOrdered By: Luis Antonio Navarro on 01-10-2025 MCH (RBC) [Entitic mass] 30.9 pg 27.0-32.0 [facility] Mean corpuscular hemoglobin concentration (MCHC) determinationOrdered By: Luis Antonio Navarro on 01-10-2025 MCHC (RBC) [Mass/Vol] 32.5 g/dL 32-36 [facility] Mean platelet volume determi nationOrdered By: Luis Antonio Navarro on 01-10-2025 Platelet mean volume (Bld) [Entitic vol] 10.4 fL 6.2-12.0 [facility] Platelet countOrdered By: Garry Navarro on 01-10-2025 Platelets (Bld) [#/Vol] 216 10*3/uL 150-450 [facility] Potassium measurement (mass/ volume)Ordered By: Luis Antonio Navarro on 01-10-2025 Potassium (Unsp spec) [Mass/Vol] 3.5 mmol/L 3.3-5.1 [facility] RBC Auto (Bld) [#/Vol]Ordere d By: Luis Antonio Navarro on 01-10-2025 RBC (Bld) [#/Vol] 3.98 10*6/uL Low 4.2-5.4 [facility] Serum creatinine measurement (mass/volume)Ordered By: Luis Antonio Navarro on 01-10-2025 Creatinine [Mass/Vol] 1.25 mg/dL High 0.70-1.20 [facility] Serum glucose measurement (m ass/volume)Ordered By: Luis Antonio Navarro on 01-10-2025 Glucose [Mass/Vol] 92 mg/dL 70-99 [facility] Serum or plasma calcium dane urement (mass/volume)Ordered By: Luis Antonio Navarro on 01-10-2025 Calcium [Mass/Vol] 8.9 mg/dL 7.6-11.0 [facility] Serum or plasma urea nitroge n measurement (mass/volume)Ordered By: Luis Antonio Navarro on 01-10-2025 Urea nitrogen [Mass/Vol] 12 mg/dL 4-19 [facility] Sodium levelOrdered By: Randy Navarro on 01-10-2025 Sodium [Moles/Vol] 144 mmol/L 133-145 [facility] Venous Duplex US - Bruce Extre mon 01-10-2025 Venous Duplex US - Bruce Extrem Normal [facility] Venous duplex ultrasound rep ortOrdered By: Wilfredo Shelby on 01-10-2025 US Vein [facility] Work Phone: White blood cell (WBC) count Ordered By: Luis Antonio Navarro on 01-10-2025 WBC (Bld) [#/Vol] 9.3 10*3/uL 4.4-11.0 [facility] Absolute lymphocyte countOrd ered By: Lauren White on 01-09-2025 Lymphocytes Auto (Unsp spec) [#/Vol] 2.69 10*3/uL 0.83-4.51 [facility] Absolute neutrophil countOrd ered By: White on 01-09-2025 Neutrophils (Bld) [#/Vol] 6.7 10*3/uL 2.0-7.7 [facility] Automated lymphocyte count a s percentage of total leukocytesOrdered By: White on 01-09-2025 Lymphocytes/100 WBC Auto (Unsp spec) 25.4 % 19-41 [facility] Basophil percentageOrdered B y: White on 01-09-2025 Basophils/100 WBC (Bld) 0.2 % 0-1 [facility] Bedside Glucoseon 01-09-2025 FINGERSTICK GLU 96 mg/dL Normal 74-106 [facility] Comment on above: Result Comment: BJ MOURA OF PATIENT CARE PER NURSING PROTOCOL Performed By: #### L 501.080 ####[facility] [address] [place], [address] FINGERSTICK GLU 96 mg/dL Normal 74-106 [facility] Comment on above: Result Comment: BJ RODRIGEZENT OF PATIENT CARE PER NURSING PROTOCOL Performed By: #### L 501.080 ####[facility] [address] [place], [address] FINGERSTICK GLU 115 mg/dL High 74-106 [facility] Comment on above: Result Comment: BJ GEMENT OF PATIENT CARE PER NURSING PROTOCOL Performed By: #### L 501.080 ####[facility] [address] [place], [address] FINGERSTICK GLU 110 mg/dL High 74-106 [facility] Comment on above: Result Comment: BJ GEMENT OF PATIENT CARE PER NURSING PROTOCOL Performed By: #### L 501.080 ####[facility] [address] [place], [address] FINGERSTICK GLU 108 mg/dL High 74-106 [facility] Comment on above: Result Comment: BJ GEMENT OF PATIENT CARE PER NURSING PROTOCOL Performed By: #### L 501.080 ####[facility] [address] [place], [address] Bilirubin, totalOrdered By: Lauren Vela on 01-09-2025 Bilirubin [Mass/Vol] 0.41 mg/dL 0.00-1.30 [facility] CBC W/Diff, Automatedon 12-17 Absolute Lymph 2.69 X10 3/uL Normal 0.83-4.51 [facility] Comment on above: Performed By: #### L 501.9985, L500.4050, L100.0100 ####[facility] [address] [place], [address] Absolute Neut 6.7 X10 3/uL Normal 2.0-7.7 [facility] Comment on above: Performed By: #### L 501.9985, L500.4050, L100.0100 ####[facility] [address] [place], [address] Basophils/100 WBC (Bld) 0.2 % Normal 0-1 [facility] Comment on above: Performed By: #### L 501.9985, L500.4050, L100.0100 ####[facility] [address] [place], [address] Eosinophils/100 WBC (Bld) 1.2 % Normal 0-5 [facility] Comment on above: Performed By: #### L 501.9985, L500.4050, L100.0100 ####[facility] [address] [place], [address] Erythrocyte distribution width (RBC) [Ratio] 13.9 % Normal 11.6-14.6 [facility] Comment on above: Performed By: #### L 501.9985, L500.4050, L100.0100 ####[facility] [address] [place], [address] Hematocrit (Bld) [Volume fraction] 39.9 % Normal 37-47 [facility] Comment on above: Performed By: #### L 501.9985, L500.4050, L100.0100 ####[facility] [address] [place], [address] Hemoglobin (Bld) [Mass/Vol] 12.9 g/dL Normal 12.0-15.0 [facility] Comment on above: Performed By: #### L 501.9985, L500.4050, L100.0100 ####[facility] [address] [place], [address] IG% 0.200 Normal 0.0-0.9 [facility] Comment on above: Result Comment: IG% - Immature Granulocytes (promyelocytes, myelocytes andmetamyelocytes) > 1% indicates that a LEFT SHIFT is Present. Performed By: #### L 501.9985, L500.4050, L100.0100 ####[facility] [address] [place], [address] Lymphocytes/100 WBC (Bld) 25.4 % Normal 19-41 [facility] Comment on above: Performed By: #### L 501.9985, L500.4050, L100.0100 ####[facility] [address] [place], [address] MCH (RBC) [Entitic mass] 30.6 pg Normal 27.0-32.0 [facility] Comment on above: Performed By: #### L 501.9985, L500.4050, L100.0100 ####[facility] [address] [place], [address] MCHC (RBC) [Mass/Vol] 32.3 g/dL Normal 32-36 [facility] Comment on above: Performed By: #### L 501.9985, L500.4050, L100.0100 ####[facility] [address] [place], [address] MCV (RBC) [Entitic vol] 94.8 fL Normal 81-99 [facility] Comment on above: Performed By: #### L 501.9985, L500.4050, L100.0100 ####[facility] [address] [place], [address] Monocytes/100 WBC (Bld) 9.5 % Normal 0-10 [facility] Comment on above: Performed By: #### L 501.9985, L500.4050, L100.0100 ####[facility] [address] [place], [address] Neutrophils/100 WBC (Bld) 63.5 % Normal 47-70 [facility] Comment on above: Performed By: #### L 501.9985, L500.4050, L100.0100 ####[facility] [address] [place], [address] Nucleated RBC (Bld) [#/Vol] 0 10*3/uL Normal 0-5 [facility] Comment on above: Performed By: #### L 501.9985, L500.4050, L100.0100 ####[facility] [address] [place], [address] Platelet mean volume (Bld) [Entitic vol] 10.3 fL Normal 6.2-12.0 [facility] Comment on above: Performed By: #### L 501.9985, L500.4050, L100.0100 ####[facility] [address] [place], [address] Platelets (Bld) [#/Vol] 223 10*3/uL Normal 150-450 [facility] Comment on above: Performed By: #### L 501.9985, L500.4050, L100.0100 ####[facility] [address] [place], [address] RBC (Bld) [#/Vol] 4.21 10*6/uL Normal 4.2-5.4 [facility] Comment on above: Performed By: #### L 501.9985, L500.4050, L100.0100 ####[facility] [address] [place], [address] RDW SD 48.2 fl High 35.1-43.9 [facility] Comment on above: Performed By: #### L 501.9985, L500.4050, L100.0100 ####[facility] [address] [place], [address] WBC (Bld) [#/Vol] 10.6 10*3/uL Normal 4.4-11.0 [facility] Comment on above: Performed By: #### L 501.9985, L500.4050, L100.0100 ####[facility] [address] [place], [address] Comprehensive Metabolic Prof ksmarkos 01-09-2025 Albumin [Mass/Vol] 3.2 g/dL Low 3.4-4.8 [facility] Comment on above: Performed By: #### L 501.9985, L500.4050, L100.0100 ####[facility] [address] [place], [address] Albumin/Globulin [Mass ratio] 1.3 {ratio} Normal 0.9-2.4 [facility] Comment on above: Performed By: #### L 501.9985, L500.4050, L100.0100 ####[facility] [address] [place], [address] ALK PHOS 69 U/L Normal 35-104 [facility] Comment on above: Performed By: #### L 501.9985, L500.4050, L100.0100 ####[facility] [address] [place], [address] ALT [Catalytic activity/Vol] 9 U/L Normal <=34 [facility] Comment on above: Performed By: #### L 501.9985, L500.4050, L100.0100 ####[facility] [address] [place], [address] AST [Catalytic activity/Vol] 32 U/L Normal <=31 [facility] Comment on above: Performed By: #### L 501.9985, L500.4050, L100.0100 ####[facility] [address] [place], [address] Bilirubin [Mass/Vol] 0.41 mg/dL Normal 0.00-1.30 [facility] Comment on above: Performed By: #### L 501.9985, L500.4050, L100.0100 ####[facility] [address] [place], [address] BUN/CRE 9.3 RATIO Low 10-20 [facility] Comment on above: Performed By: #### L 501.9985, L500.4050, L100.0100 ####[facility] [address] [place], [address] Calcium [Mass/Vol] 8.2 mg/dL Normal 7.6-11.0 [facility] Comment on above: Performed By: #### L 501.9985, L500.4050, L100.0100 ####[facility] [address] [place], [address] Chloride [Moles/Vol] 114 mmol/L High 98-108 [facility] Comment on above: Performed By: #### L 501.9985, L500.4050, L100.0100 ####[facility] [address] [place], [address] CO2 [Moles/Vol] 19.4 mmol/L Low 21.0-32.0 [facility] Comment on above: Performed By: #### L 501.9985, L500.4050, L100.0100 ####[facility] [address] [place], [address] Creatinine [Mass/Vol] 1.36 mg/dL High 0.70-1.20 [facility] Comment on above: Performed By: #### L 501.9985, L500.4050, L100.0100 ####[facility] [address] [place], [address] ECRCL 51.12 ml/min Normal 50-250 [facility] Comment on above: Performed By: #### L 501.9985, L500.4050, L100.0100 ####[facility] [address] [place], [address] GAP 13 Normal 5-15 [facility] Comment on above: Performed By: #### L 501.9985, L500.4050, L100.0100 ####[facility] [address] [place], [address] GFR/1.73 sq M.predicted among non-blacks MDRD (S/P/Bld) [Vol rate/Area] 44 mL/min/{1.73_m2} Low >60 [facility] Comment on above: Result Comment: mL/m in/1.73m2 CKD-EPI Creatinine Equation (2020) Performed By: #### L 501.9985, L500.4050, L100.0100 ####[facility] [address] [place], [address] Globulin (S) [Mass/Vol] 2.5 g/dL Normal 2.2-4.2 [facility] Comment on above: Performed By: #### L 501.9985, L500.4050, L100.0100 ####[facility] [address] [place], [address] Glucose [Mass/Vol] 101 mg/dL High 70-99 [facility] Comment on above: Performed By: #### L 501.9985, L500.4050, L100.0100 ####[facility] [address] [place], [address] Potassium [Moles/Vol] 3.6 mmol/L Normal 3.3-5.1 [facility] Comment on above: Performed By: #### L 501.9985, L500.4050, L100.0100 ####[facility] [address] [place], [address] Sodium [Moles/Vol] 146 mmol/L High 133-145 [facility] Comment on above: Performed By: #### L 501.9985, L500.4050, L100.0100 ####[facility] [address] [place], [address] T PROT 5.8 g/dL Low 5.9-8.4 [facility] Comment on above: Performed By: #### L 501.9985, L500.4050, L100.0100 ####[facility] [address] [place], [address] Urea nitrogen [Mass/Vol] 13 mg/dL Normal 4-19 [facility] Comment on above: Performed By: #### L 501.9985, L500.4050, L100.0100 ####[facility] [address] [place], [address] Consultation - Intensiviston 01-09-2025 Consultation - Legal Officer Normal [facility] Electrocardiogram reportOrde red By: Az Engle on 01-09-2025 EKG study [facility] Other Eosinophil percentageOrdered By: Lauren Vela on 01-09-2025 Eosinophils/100 WBC (Bld) 1.2 % 0-5 [facility] Hemoglobin A1con 01-09-2025 HbA1c (Bld) [Mass fraction] 6.0 % High <=5.6 [facility] Comment on above: Result Comment: Norm al < 5.7 % Prediabetic 5.7 - 6.4 % Diabetic >or= 6.5 % Please note range changes. Performed By: #### L 501.9985, L500.4050, L100.0100 ####[facility] [address] [place], [address] Hemoglobin A1c percentageOrd ered By: Lauren Vela on 01-09-2025 HbA1c (Bld) [Mass fraction] 6.0 % High <5.7 [facility] Comment on above: Normal < 5.7 % Predi abetic 5.7 - 6.4 % Diabetic >or= 6.5 % Please note range changes. Immature granulocytes/100 WB C Auto (Bld)Ordered By: Lauren Vela on 01-09-2025 Immature granulocytes/100 WBC (Bld) 0.200 % 0.0-0.9 [facility] Comment on above: IG% - Immature Granu locytes (promyelocytes, myelocytes and metamyelocytes) > 1% indicates that a LEFT SHIFT is Present. Kidney and Bladderon 0[address] [facility] Laboratory - Chemistry and C hemistry - challengeOrdered By: Lauren Vela on 01-09-2025 AST [Catalytic activity/Vol] 32 U/L <32 [facility] Monocyte percentageOrdered B y: Lauren Dane on 01-09-2025 Monocytes/100 WBC (Bld) 9.5 % 0-10 [facility] Neutrophil percentageOrdered By: Lauren Dane on 01-09-2025 Neutrophils/100 WBC (Bld) 63.5 % 47-70 [facility] No Panel InformationOrdered By: Lauren Dane on 01-09-2025 32 U/L <32 [facility] Nucleated red blood cell per centageOrdered By: Lauren Dane on 01-09-2025 Nucleated RBC/100 WBC (Bld) [Ratio] 0 % 0-5 [facility] Serum globulin measurementOr dered By: Lauren Vela on 01-09-2025 Globulin (S) [Mass/Vol] 2.5 g/dL 2.2-4.2 [facility] Serum or plasma alanine obregon otransferase (ALT) measurementOrdered By: Lauren Dane on 01-09-2025 ALT [Catalytic activity/Vol] 9 U/L <35 [facility] Serum or plasma albumin dane urement (mass/volume)Ordered By: Lauren Dane on 01-09-2025 Albumin [Mass/Vol] 3.2 g/dL Low 3.4-4.8 [facility] Serum or plasma albumin/glob ulin mass ratioOrdered By: Lauren Dane on 01-09-2025 Albumin/Globulin [Mass ratio] 1.3 {ratio} 0.9-2.4 [facility] Serum or plasma alkaline ruddy sphatase measurementOrdered By: Lauren Dane on 01-09-2025 ALP [Catalytic activity/Vol] 69 U/L 35-104 [facility] Total proteinOrdered By: Aut umn Dane on 01-09-2025 Protein [Mass/Vol] 5.8 g/dL Low 5.9-8.4 [facility] Urine Cultureon 01-09-2025 URC Culture exhibits no growth. Normal [facility] Comment on above: Performed By: #### M 100.2200 ####[facility] [address] [place], [place], [id number] 12 Lead EKGon 01-08-2025 12 Lead EKG Normal [facility] Absolute lymphocyte countOrd ered By: Issa Chapin on 01-08-2025 Lymphocytes Auto (Unsp spec) [#/Vol] 1.55 10*3/uL 0.83-4.51 [facility] Activated partial thrombopla stin time (aPTT) in platelet poor plasma by coagulation aOrdered By: Issa Chapin on 01-08-2025 aPTT Coag (PPP) [Time] 27.1 s 24.1-36.2 [facility] Alcohol, Blood (Medical)-Ser umon 01-08-2025 SERUM ETOH < 10.1 Normal <=10.0 [facility] Comment on above: Result Comment: This test is for medical purposes only. The legaldefinition of intoxication varies according to local law. Performed By: #### L 300.4310, L500.4050, L100.0100, L505.5000, L501.9100, L300.3900, L501.2450, L503.6005 ####[facility] [address] [place], [place], [address] Amphetamine detection with 1 000 ng/mL as cutoffOrdered By: Issa Chapin on 01-08-2025 Amphetamines Screen method >1000 ng/mL Ql (U) Negative < 200 ng/mL [facility] Anion gap in Serum or Plasma Ordered By: Issa Chapin on 01-08-2025 Anion gap [Moles/Vol] 16 mmol/L High 5-15 [facility] Automated lymphocyte count a s percentage of total leukocytesOrdered By: Issa Chapin on 01-08-2025 Lymphocytes/100 WBC Auto (Unsp spec) 15.8 % Low 19-41 [facility] BUN/creatinine ratioOrdered By: Issa Chapin on 01-08-2025 Urea nitrogen/Creatinine [Mass ratio] 9.2 mg/mg Low 10-20 [facility] Basophil percentageOrdered B y: Issa Chapin on 01-08-2025 Basophils/100 WBC (Bld) 0.2 % 0-1 [facility] Bilirubin Test strip Ql (U)O rdered By: Issa Chapin on 01-08-2025 Bilirubin Ql (U) 1 mg/dL High Negative [facility] Comment on above: COLOR OF URINE MAY A FFECT DIPSTICK RESULTS. Bilirubin, totalOrdered By: Issa Chapin on 01-08-2025 Bilirubin [Mass/Vol] 0.39 mg/dL 0.00-1.30 [facility] Blood Gases by CPSon 025 Base excess Calc (Bld) [Moles/Vol] -3 mmol/L Low -2 to +2 [facility] Comment on above: Order Comment: Resul ts manually entered by Amber and verified by [facility]01/08/25 at 1747 Performed By: #### L 9000.0800 ####[facility] [address] [place], [address] Blood Gas Type ART Normal [facility] Comment on above: Order Comment: Resul ts manually entered by Amber and verified by [facility]01/08/25 at 1747 Performed By: #### L 9000.0800 ####[facility] [address] [place], [address] CO2 [Moles/Vol] 22 mmol/L Normal [facility] Comment on above: Order Comment: Resul ts manually entered by Amber and verified by [facility]01/08/25 at 1747 Performed By: #### L 9000.0800 ####[facility] [address] [place], [address] HCO3 (Bld) [Moles/Vol] 21.1 mmol/L Low 22-26 [facility] Comment on above: Order Comment: Resul ts manually entered by Amber and verified by [facility]01/08/25 at 1747 Performed By: #### L 9000.0800 ####[facility] [address] [place], [address] LPM 3.0 Normal [facility] Comment on above: Order Comment: Resul ts manually entered by Amber and verified by [facility]01/08/25 at 1747 Performed By: #### L 9000.0800 ####[facility] [address] [place], [address] pCO2 29.6 mmHg Low 35-45 [facility] Comment on above: Order Comment: Resul ts manually entered by Amber and verified by [facility]01/08/25 at 1747 Performed By: #### L 9000.0800 ####[facility] [address] [place], [address] pH (Bld) 7.46 [pH] High 7.35-7.45 [facility] Comment on above: Order Comment: Resul ts manually entered by Amber and verified by [facility]01/08/25 at 1747 Performed By: #### L 9000.0800 ####[facility] [address] [place], [address] PO2 55 mmHG Low 75-100 [facility] Comment on above: Order Comment: Resul ts manually entered by Amber and verified by [facility]01/08/25 at 1747 Performed By: #### L 9000.0800 ####[facility] [address] [place], [address] SITE R BRACHIAL Normal [facility] Comment on above: Order Comment: Resul ts manually entered by Amber and verified by [facility]01/08/25 at 1747 Performed By: #### L 9000.0800 ####[facility] [address] [place], [address] SO2 91 Low 95-99 [facility] Comment on above: Order Comment: Resul ts manually entered by Amber and verified by [facility]01/08/25 at 1747 Performed By: #### L 9000.0800 ####[facility] [address] [place], [place], [id number] Blood base excess determinat ionOrdered By: Issa Chapin on 01-08-2025 Base excess Calc (BldV) [Moles/Vol] -3 mmol/L Low -2-2 [facility] Blood bicarbonate measuremen tOrdered By: Issa Chapin on 01-08-2025 HCO3 (Bld) [Moles/Vol] 21.1 mmol/L Low 22-26 [facility] Blood cultureOrdered By: Issa Chapin on 01-08-2025 Bacteria identified Cx Nom (Bld) No growth in 5 days. [facility] Brain/Head without Contrasto n 01-08-2025 Brain/Head without Contrast Normal [facility] CBC W/Diff, Automatedon 12-17 Absolute Lymph 1.55 X10 3/uL Normal 0.83-4.51 [facility] Comment on above: Performed By: #### L 300.4310, L500.4050, L100.0100, L505.5000, L501.9100, L300.3900, L501.2450, L503.6005 ####[facility] [address] [place], [address] Absolute Neut 7.4 X10 3/uL Normal 2.0-7.7 [facility] Comment on above: Performed By: #### L 300.4310, L500.4050, L100.0100, L505.5000, L501.9100, L300.3900, L501.2450, L503.6005 ####[facility] [address] [place], [address] Basophils/100 WBC (Bld) 0.2 % Normal 0-1 [facility] Comment on above: Performed By: #### L 300.4310, L500.4050, L100.0100, L505.5000, L501.9100, L300.3900, L501.2450, L503.6005 ####[facility] [address] [place], [address] Eosinophils/100 WBC (Bld) 1.3 % Normal 0-5 [facility] Comment on above: Performed By: #### L 300.4310, L500.4050, L100.0100, L505.5000, L501.9100, L300.3900, L501.2450, L503.6005 ####[facility] [address] [place], [address] Erythrocyte distribution width (RBC) [Ratio] 13.7 % Normal 11.6-14.6 [facility] Comment on above: Performed By: #### L 300.4310, L500.4050, L100.0100, L505.5000, L501.9100, L300.3900, L501.2450, L503.6005 ####[facility] [address] [place], [address] Hematocrit (Bld) [Volume fraction] 41.1 % Normal 37-47 [facility] Comment on above: Performed By: #### L 300.4310, L500.4050, L100.0100, L505.5000, L501.9100, L300.3900, L501.2450, L503.6005 ####[facility] [address] [place], [address] Hemoglobin (Bld) [Mass/Vol] 13.5 g/dL Normal 12.0-15.0 [facility] Comment on above: Performed By: #### L 300.4310, L500.4050, L100.0100, L505.5000, L501.9100, L300.3900, L501.2450, L503.6005 ####[facility] [address] [place], [address] IG% 0.100 Normal 0.0-0.9 [facility] Comment on above: Result Comment: IG% - Immature Granulocytes (promyelocytes, myelocytes andmetamyelocytes) > 1% indicates that a LEFT SHIFT is Present. Performed By: #### L 300.4310, L500.4050, L100.0100, L505.5000, L501.9100, L300.3900, L501.2450, L503.6005 ####[facility] [address] [place], [address] Lymphocytes/100 WBC (Bld) 15.8 % Low 19-41 [facility] Comment on above: Performed By: #### L 300.4310, L500.4050, L100.0100, L505.5000, L501.9100, L300.3900, L501.2450, L503.6005 ####[facility] [address] [place], [address] MCH (RBC) [Entitic mass] 30.5 pg Normal 27.0-32.0 [facility] Comment on above: Performed By: #### L 300.4310, L500.4050, L100.0100, L505.5000, L501.9100, L300.3900, L501.2450, L503.6005 ####[facility] [address] [place], [address] MCHC (RBC) [Mass/Vol] 32.8 g/dL Normal 32-36 [facility] Comment on above: Performed By: #### L 300.4310, L500.4050, L100.0100, L505.5000, L501.9100, L300.3900, L501.2450, L503.6005 ####[facility] [address] [place], [address] MCV (RBC) [Entitic vol] 93.0 fL Normal 81-99 [facility] Comment on above: Performed By: #### L 300.4310, L500.4050, L100.0100, L505.5000, L501.9100, L300.3900, L501.2450, L503.6005 ####[facility] [address] [place], [address] Monocytes/100 WBC (Bld) 6.6 % Normal 0-10 [facility] Comment on above: Performed By: #### L 300.4310, L500.4050, L100.0100, L505.5000, L501.9100, L300.3900, L501.2450, L503.6005 ####[facility] [address] [place], [address] Neutrophils/100 WBC (Bld) 76.0 % High 47-70 [facility] Comment on above: Performed By: #### L 300.4310, L500.4050, L100.0100, L505.5000, L501.9100, L300.3900, L501.2450, L503.6005 ####[facility] [address] [place], [address] Nucleated RBC (Bld) [#/Vol] 0 10*3/uL Normal 0-5 [facility] Comment on above: Performed By: #### L 300.4310, L500.4050, L100.0100, L505.5000, L501.9100, L300.3900, L501.2450, L503.6005 ####[facility] [address] [place], [address] Platelet mean volume (Bld) [Entitic vol] 10.5 fL Normal 6.2-12.0 [facility] Comment on above: Performed By: #### L 300.4310, L500.4050, L100.0100, L505.5000, L501.9100, L300.3900, L501.2450, L503.6005 ####[facility] [address] [place], [address] Platelets (Bld) [#/Vol] 245 10*3/uL Normal 150-450 [facility] Comment on above: Performed By: #### L 300.4310, L500.4050, L100.0100, L505.5000, L501.9100, L300.3900, L501.2450, L503.6005 ####[facility] [address] [place], [address] RBC (Bld) [#/Vol] 4.42 10*6/uL Normal 4.2-5.4 [facility] Comment on above: Performed By: #### L 300.4310, L500.4050, L100.0100, L505.5000, L501.9100, L300.3900, L501.2450, L503.6005 ####[facility] [address] [place], [address] RDW SD 46.9 fl High 35.1-43.9 [facility] Comment on above: Performed By: #### L 300.4310, L500.4050, L100.0100, L505.5000, L501.9100, L300.3900, L501.2450, L503.6005 ####[facility] [address] [place], [address] WBC (Bld) [#/Vol] 9.8 10*3/uL Normal 4.4-11.0 [facility] Comment on above: Performed By: #### L 300.4310, L500.4050, L100.0100, L505.5000, L501.9100, L300.3900, L501.2450, L503.6005 ####[facility] [address] [place], [address] Carbon dioxide, total [Moles /volume] in Central venous bloodOrdered By: Issa Chapin on 01-08-2025 CO2 [Moles/Vol] 18.9 mmol/L Low 21.0-32.0 [facility] Chest 1 View (Portable)on Chest 1 View (Portable) Normal [facility] Chloride assayOrdered By: Sagar Chapin on 01-08-2025 Chloride [Moles/Vol] 105 mmol/L 98-108 [facility] Comprehensive Metabolic Prof ilon 01-08-2025 Albumin [Mass/Vol] 3.7 g/dL Normal 3.4-4.8 [facility] Comment on above: Performed By: #### L 300.4310, L500.4050, L100.0100, L505.5000, L501.9100, L300.3900, L501.2450, L503.6005 ####[facility] [address] [place], [place], [phone] Albumin/Globulin [Mass ratio] 1.4 {ratio} Normal 0.9-2.4 [facility] Comment on above: Performed By: #### L 300.4310, L500.4050, L100.0100, L505.5000, L501.9100, L300.3900, L501.2450, L503.6005 ####[facility] [address] [place], [place], [id number] ALK PHOS 77 U/L Normal 35-104 [facility] Comment on above: Performed By: #### L 300.4310, L500.4050, L100.0100, L505.5000, L501.9100, L300.3900, L501.2450, L503.6005 ####[facility] [address] [place], [place], [phone] ALT [Catalytic activity/Vol] 8 U/L Normal <=34 [facility] Comment on above: Performed By: #### L 300.4310, L500.4050, L100.0100, L505.5000, L501.9100, L300.3900, L501.2450, L503.6005 ####[facility] [address] [place], [address] AST [Catalytic activity/Vol] 18 U/L Normal <=31 [facility] Comment on above: Performed By: #### L 300.4310, L500.4050, L100.0100, L505.5000, L501.9100, L300.3900, L501.2450, L503.6005 ####[facility] [address] [place], [place], [phone]280) Bilirubin [Mass/Vol] 0.39 mg/dL Normal 0.00-1.30 [facility] Comment on above: Performed By: #### L 300.4310, L500.4050, L100.0100, L505.5000, L501.9100, L300.3900, L501.2450, L503.6005 ####[facility] [address] [place], [address](869) BUN/CRE 9.2 RATIO Low 10-20 [facility] Comment on above: Performed By: #### L 300.4310, L500.4050, L100.0100, L505.5000, L501.9100, L300.3900, L501.2450, L503.6005 ####[facility] [address] [place], [place], [phone](701) Calcium [Mass/Vol] 8.7 mg/dL Normal 7.6-11.0 [facility] Comment on above: Performed By: #### L 300.4310, L500.4050, L100.0100, L505.5000, L501.9100, L300.3900, L501.2450, L503.6005 ####[facility] [address] [place], [address] Chloride [Moles/Vol] 105 mmol/L Normal 98-108 [facility] Comment on above: Performed By: #### L 300.4310, L500.4050, L100.0100, L505.5000, L501.9100, L300.3900, L501.2450, L503.6005 ####[facility] [address] [place], [place], [phone] CO2 [Moles/Vol] 18.9 mmol/L Low 21.0-32.0 [facility] Comment on above: Performed By: #### L 300.4310, L500.4050, L100.0100, L505.5000, L501.9100, L300.3900, L501.2450, L503.6005 ####[facility] [address] [place], [place], [phone] Creatinine [Mass/Vol] 1.82 mg/dL High 0.70-1.20 [facility] Comment on above: Performed By: #### L 300.4310, L500.4050, L100.0100, L505.5000, L501.9100, L300.3900, L501.2450, L503.6005 ####[facility] [address] [place], [place], [phone] ECRCL 38.69 ml/min Low 50-250 [facility] Comment on above: Performed By: #### L 300.4310, L500.4050, L100.0100, L505.5000, L501.9100, L300.3900, L501.2450, L503.6005 ####[facility] [address] [place], [place], [phone] GAP 16 High 5-15 [facility] Comment on above: Performed By: #### L 300.4310, L500.4050, L100.0100, L505.5000, L501.9100, L300.3900, L501.2450, L503.6005 ####[facility] [address] [place], [place], [id number] GFR/1.73 sq M.predicted among non-blacks MDRD (S/P/Bld) [Vol rate/Area] 31 mL/min/{1.73_m2} Low >60 [facility] Comment on above: Result Comment: mL/m in/1.73m2 CKD-EPI Creatinine Equation (2020) Performed By: #### L 300.4310, L500.4050, L100.0100, L505.5000, L501.9100, L300.3900, L501.2450, L503.6005 ####[facility] [address] [place], [address] Globulin (S) [Mass/Vol] 2.7 g/dL Normal 2.2-4.2 [facility] Comment on above: Performed By: #### L 300.4310, L500.4050, L100.0100, L505.5000, L501.9100, L300.3900, L501.2450, L503.6005 ####[facility] [address] [place], [address] Glucose [Mass/Vol] 138 mg/dL High 70-99 [facility] Comment on above: Performed By: #### L 300.4310, L500.4050, L100.0100, L505.5000, L501.9100, L300.3900, L501.2450, L503.6005 ####[facility] [address] [place], [address] Potassium [Moles/Vol] 3.4 mmol/L Normal 3.3-5.1 [facility] Comment on above: Performed By: #### L 300.4310, L500.4050, L100.0100, L505.5000, L501.9100, L300.3900, L501.2450, L503.6005 ####[facility] [address] [place], [address] Sodium [Moles/Vol] 140 mmol/L Normal 133-145 [facility] Comment on above: Performed By: #### L 300.4310, L500.4050, L100.0100, L505.5000, L501.9100, L300.3900, L501.2450, L503.6005 ####[facility] [address] [place], [place], [phone] T PROT 6.4 g/dL Normal 5.9-8.4 [facility] Comment on above: Performed By: #### L 300.4310, L500.4050, L100.0100, L505.5000, L501.9100, L300.3900, L501.2450, L503.6005 ####[facility] [address] [place], [address] Urea nitrogen [Mass/Vol] 17 mg/dL Normal 4-19 [facility] Comment on above: Performed By: #### L 300.4310, L500.4050, L100.0100, L505.5000, L501.9100, L300.3900, L501.2450, L503.6005 ####[facility] [address] [place], [address] Emergency Department Summary on 01-08-2025 Emergency Department Summary Normal [facility] Eosinophil percentageOrdered By: Issa Chapin on 01-08-2025 Eosinophils/100 WBC (Bld) 1.3 % 0-5 [facility] Erythrocyte distribution wid th ratioOrdered By: Issa Chapin on 01-08-2025 Erythrocyte distribution width (RBC) [Ratio] 13.7 % 11.6-14.6 [facility] Erythrocyte distribution wid th standard deviationOrdered By: Issa Chapin on 01-08-2025 Erythrocyte distribution width (RBC) [Ratio] 46.9 fl High 35.1-43.9 [facility] Glomerular filtration rate ( GFR) estimation/1.73 sq m using serum, plasma, or whole bOrdered By: Issa Chapin on 01-08-2025 GFR/1.73 sq M.predicted among non-blacks MDRD (S/P/Bld) [Vol rate/Area] 31 mL/min/{1.73_m2} Low >60 [facility] H AND P Exam - Hospitaliston 01-08-2025 H&P Exam - Hospitalist Normal [facility] Hematocrit Auto (Bld) [Volum e fraction]Ordered By: Issakirit Chapin on 01-08-2025 Hematocrit (Bld) [Volume fraction] 41.1 % 37-47 [facility] Hemoglobin [facility]Ordere d [facility]: [facility] Hemoglobin (Bld) [Mass/Vol] 13.5 g/dL 12.0-15.0 [facility] Immature granulocytes/100 WB C Auto (Bld)Ordered By: [facility] on 01-08-2025 Immature granulocytes/100 WBC (Bld) 0.100 % 0.0-0.9 [facility] International normalized rat io (INR) calculationOrdered By: [facility] on 01-08-2025 INR Coag (Bld) [Relative time] 1.1 {INR} [facility] Ketones Test strip Ql (U)Ord ered By[facility] 01-[facility] Ketones Ql (U) Negative Negative [facility] Lactic Acidon 01-08-2025 Lactate [Moles/Vol] mmol/L Normal 0.0-2.0 [facility] Comment on above: Performed By: #### L 503.6008 ####[facility] [address] [place], [place], [phone] Lactate [Moles/Vol] 3.9 mmol/L Invalid Interpretation Code 0.0-2.0 [facility] Comment on above: Order Comment: Y Result Comment: Crit ical Result(s) Called JADYNMALIA at: 1759 by:NIKOLAY??Results read back by same. Performed By: #### L 300.4310, L500.4050, L100.0100, L505.5000, L501.9100, L300.3900, L501.2450, L503.6005 ####[facility] [address] [place], [place], [phone] Lactic acid measurementOrder ed By: Issa Chapin on 01-08-2025 Lactate [Moles/Vol] mmol/L 0.0-2.0 [facility] Lipaseon 01-08-2025 Lipase [Catalytic activity/Vol] 22 U/L Normal - [facility] Comment on above: Result Comment: Mahin yoon note:LIPASE revised reference range effective 22.New Lipase methodology. Expected to produce lower valuesthan the previous assay method.NEW Reference Range: 13 - 75 U/L Performed By: #### L 300.4310, L500.4050, L100.0100, L505.5000, L501.9100, L300.3900, L501.2450, L503.6005 ####[facility] [address] [place], [address] Lipase measurementOrdered By : Issa Chapin on 01-08-2025 Lipase [Catalytic activity/Vol] 22 U/L - [facility] Comment on above: Please note:LIPASE r evised reference range effective 22. New Lipase methodology. Expected to produce lower values than the previous assay method. NEW Reference Range: 13 - 75 U/L MCV (mean corpuscular volume ) determinationOrdered By: Issa Chapin on 01-08-2025 MCV (RBC) [Entitic vol] 93.0 fL 81-99 [facility] Mean corpuscular hemoglobin (MCH) determinationOrdered By: Issa Chapin on 01-08-2025 MCH (RBC) [Entitic mass] 30.5 pg 27.0-32.0 [facility] Measurement, pHOrdered By: Rony Chapin on 01-08-2025 pH (Unsp spec) 7.46 [pH] High 7.35-7.45 [facility] Microscopic analysis of urin e for red blood cells (RBC)Ordered By: Issa Chapin on 01-08-2025 Microscopic analysis of urine for red blood cells (RBC) 0-5 SEEN /hpf 0-5 [facility] Monocyte percentageOrdered B y: Issa Chapin on 01-08-2025 Monocytes/100 WBC (Bld) 6.6 % 0-10 [facility] Mucus LM Ql (Urine sed)Order ed By: Issa Chapin on 01-08-2025 Mucus Ql (Urine sed) 0 SEEN /hpf [facility] Neutrophil percentageOrdered By: Issa Chapin on 01-08-2025 Neutrophils/100 WBC (Bld) 76.0 % High 47-70 [facility] Nitrite Test strip Ql (U)Ord ered By: Issa Chapin on 01-08-2025 Nitrite Ql (U) Negative Negative [facility] No Panel InformationOrdered By: Issa Chapin on 01-08-2025 Blood Gas Liter Flow 3.0 [facility] Blood Gas Sample Site R [facility] Blood Gas Specimen Type ART [facility] ART [facility] R BRACHIAL [facility] 3.0 [facility] Urine Buprenorphine Qualitative Negative < 200 ng/mL [facility] Urine Oxycodone Screen Negative < 100 ng/mL [facility] 18 U/L <32 [facility] Negative < 200 ng/mL [facility] Partial Thromboplast Timeon 01-08-2025 aPTT Coag (Bld) [Time] 27.1 s Normal 24.1-36.2 [facility] Comment on above: Performed By: #### L 300.4310, L500.4050, L100.0100, L505.5000, L501.9100, L300.3900, L501.2450, L503.6005 ####[facility] [address] [place], [address] Platelet countOrdered By: Sagar Chapin on 01-08-2025 Platelets (Bld) [#/Vol] 245 10*3/uL 150-450 [facility] Potassium measurement (mass/ volume)Ordered By: Issa Chapin on 01-08-2025 Potassium (Unsp spec) [Mass/Vol] 3.4 mmol/L 3.3-5.1 [facility] Protein Test strip Ql (U)Ord ered By: Issa Chapin on 01-08-2025 Protein Ql (U) 30 mg/dl High Negative [facility] Prothrombin Time w/INRon INR Coag (PPP) [Relative time] 1.1 {INR} Normal [facility] Comment on above: Performed By: #### L 300.4310, L500.4050, L100.0100, L505.5000, L501.9100, L300.3900, L501.2450, L503.6005 ####[facility] [address] [place], [place], [phone] PT Coag (PPP) [Time] 14.3 s Normal 11.7-14.9 [facility] Comment on above: Performed By: #### L 300.4310, L500.4050, L100.0100, L505.5000, L501.9100, L300.3900, L501.2450, L503.6005 ####[facility] [address] [place], [place], [phone] Prothrombin timeOrdered By: Issa Chapin on 01-08-2025 PT Coag (PPP) [Time] 14.3 s 11.7-14.9 [facility] Quantitative urine opiates m easurementOrdered By: Issa Chapin on 01-08-2025 Opiates Ql (U) Negative < 300 ng/mL [facility] RBC Auto (Bld) [#/Vol]Ordere d By: Issa Chapin on 01-08-2025 RBC (Bld) [#/Vol] 4.42 10*6/uL 4.2-5.4 [facility] Screening urine fentanyl tito surementOrdered By: Issa Chapin on 01-08-2025 fentaNYL Screen Ql (U) Negative [facility] Serum creatinine measurement (mass/volume)Ordered By: Issa Chapin on 01-08-2025 Creatinine [Mass/Vol] 1.82 mg/dL High 0.70-1.20 [facility] Serum globulin measurementOr dered By: Issa Chapin on 01-08-2025 Globulin (S) [Mass/Vol] 2.7 g/dL 2.2-4.2 [facility] Serum glucose measurement (m ass/volume)Ordered By: Issa Chapin on 01-08-2025 Glucose [Mass/Vol] 138 mg/dL High 70-99 [facility] Serum or plasma alanine obregon otransferase (ALT) measurementOrdered By: Issa Chapin on 01-08-2025 ALT [Catalytic activity/Vol] 8 U/L <35 [facility] Serum or plasma albumin dane urement (mass/volume)Ordered By: Issa Chapin on 01-08-2025 Albumin [Mass/Vol] 3.7 g/dL 3.4-4.8 [facility] Serum or plasma albumin/glob ulin mass ratioOrdered By: Issa Chapin on 01-08-2025 Albumin/Globulin [Mass ratio] 1.4 {ratio} 0.9-2.4 [facility] Serum or plasma alkaline ruddy sphatase measurementOrdered By: Issa Chapin on 01-08-2025 ALP [Catalytic activity/Vol] 77 U/L 35-104 [facility] Serum or plasma calcium dane urement (mass/volume)Ordered By: Issa Chapin 01-08-2025 Calcium [Mass/Vol] 8.7 mg/dL 7.6-11.0 [facility] Serum or plasma ethanol dane urement (mass/volume)Ordered By: Issa Chapin on 01-08-2025 Ethanol [Mass/Vol] mg/dL <10.1 [facility] Comment on above: This test is for med ical purposes only. The legal definition of intoxication varies according to local law. Serum or plasma urea nitroge n measurement (mass/volume)Ordered By: Issa Chapin on 01-08-2025 Urea nitrogen [Mass/Vol] 17 mg/dL 4-19 [facility] Sodium levelOrdered By: Issa Chapin 01-08-2025 Sodium [Moles/Vol] 140 mmol/L 133-145 [facility] Squamous epithelial cells de tection in urine sediment by light microscopyOrdered By: Issa Chapin on 01-08-2025 Epithelial cells.squamous LM Ql (Urine sed) 5-10 SEEN /hpf 5-10 [facility] Total carbon dioxide measure mentOrdered By: Issa Chapin on 01-08-2025 CO2 [Moles/Vol] 22 mmol/L [facility] Total proteinOrdered By: Issa Chapin on 01-08-2025 Protein [Mass/Vol] 6.4 g/dL 5.9-8.4 [facility] Transitional cells detection in urine sediment by light microscopyOrdered By: Issa Chapin on 01-08-2025 Transitional cells LM Ql (Urine sed) 0-5 SEEN /hpf 0-5 [facility] Urinalysis, Completeon 01-08 RBC 0-5 SEEN Normal 0-5 [facility] Comment on above: Order Comment: JASON TER SPECIMEN Performed By: #### L 400.0001 ####[facility] [address] [place], [address] BACTERIA 2+ /hpf Normal None Seen [facility] Comment on above: Order Comment: JASON TER SPECIMEN Performed By: #### L 400.0001 ####[facility] [address] [place], [address] EPI,TRANSITION 0-5 SEEN Normal 0-5 [facility] Comment on above: Order Comment: JASON TER SPECIMEN Performed By: #### L 400.0001 ####[facility] [address] [place], [address] EPI,SQUAMOUS 5-10 SEEN Normal 5-10 [facility] Comment on above: Order Comment: JASON TER SPECIMEN Performed By: #### L 400.0001 ####[facility] [address] [place], [address] WBC 25-50 SEEN Normal 0-5 [facility] Comment on above: Order Comment: JASON TER SPECIMEN Performed By: #### L 400.0001 ####[facility] [address] [place], [address] Mucus Ql (Urine sed) 0 SEEN Normal [facility] Comment on above: Order Comment: JASON TER SPECIMEN Performed By: #### L 400.0001 ####[facility] [address] [place], [address] Urine Drug Screen (VISTA)on 01-08-2025 AMPHETAMINES Negative Normal <1000 ng/mL [facility] Comment on above: Performed By: #### L 300.4310, L500.4050, L100.0100, L505.5000, L501.9100, L300.3900, L501.2450, L503.6005 ####[facility] [address] [place], [address] BARBITIURATES Negative Normal < 200 ng/mL [facility] Comment on above: Performed By: #### L 300.4310, L500.4050, L100.0100, L505.5000, L501.9100, L300.3900, L501.2450, L503.6005 ####[facility] [address] [place], [address] BENZODIAZIPINE Positive Normal < 200 ng/mL [facility] Comment on above: Result Comment: If c onfirmation testing is needed, a separate order will berequired to send out testing to the reference laboratory. Performed By: #### L 300.4310, L500.4050, L100.0100, L505.5000, L501.9100, L300.3900, L501.2450, L503.6005 ####[facility] [address] [place], [place], [id number] BUP Ur Drug Scr Negative Normal < 200 ng/mL [facility] [facility] Comment on above: Performed By: #### L 300.4310, L500.4050, L100.0100, L505.5000, L501.9100, L300.3900, L501.2450, L503.6005 ####[facility] [address] [place], [address] COCAINE Negative Normal < 300 ng/mL [facility] Comment on above: Performed By: #### L 300.4310, L500.4050, L100.0100, L505.5000, L501.9100, L300.3900, L501.2450, L503.6005 ####[facility] [address] [place], [address] Fentanyl Negative Normal [facility] Comment on above: Performed By: #### L 300.4310, L500.4050, L100.0100, L505.5000, L501.9100, L300.3900, L501.2450, L503.6005 ####[facility] [address] [place], [address] METHADONE Negative Normal < 300 ng/mL [facility] Comment on above: Performed By: #### L 300.4310, L500.4050, L100.0100, L505.5000, L501.9100, L300.3900, L501.2450, L503.6005 ####[facility] [address] [place], [place], [phone] OPIATES Negative Normal < 300 ng/mL [facility] Comment on above: Performed By: #### L 300.4310, L500.4050, L100.0100, L505.5000, L501.9100, L300.3900, L501.2450, L503.6005 ####[facility] [address] [place], [place], [phone] OXYCODONE Negative Normal < 100 ng/mL [facility] Comment on above: Performed By: #### L 300.4310, L500.4050, L100.0100, L505.5000, L501.9100, L300.3900, L501.2450, L503.6005 ####[facility] [address] [place], [address] PCP Negative Normal < 25 ng/mL [facility] Comment on above: Performed By: #### L 300.4310, L500.4050, L100.0100, L505.5000, L501.9100, L300.3900, L501.2450, L503.6005 ####[facility] [address] [place], [place], [phone] THC Negative Normal < 50 ng/mL [facility] Comment on above: Performed By: #### L 300.4310, L500.4050, L100.0100, L505.5000, L501.9100, L300.3900, L501.2450, L503.6005 ####[facility] [address] [place], [address] Urine benzodiazepine levelOr dered By: Issa Chapin on 01-08-2025 Benzodiazepines Ql (U) Positive < 200 ng/mL [facility] Comment on above: If confirmation test ing is needed, a separate order will be required to send out testing to the reference laboratory. Urine clarityOrdered By: Issa Chapin on 01-08-2025 Clarity (U) Sl. Cloudy Clear [facility] Urine cocaine levelOrdered B y: Issa Chapin on 01-08-2025 Cocaine Ql (U) Negative < 300 ng/mL [facility] Urine color determinationOrd ered By: Issa Chapin on 01-08-2025 Color (U) Yellow Yellow [facility] Urine cultureOrdered By: Issa Chapin on 01-08-2025 Bacteria identified Cx Nom (U) Culture exhibits no growth. [facility] Urine zokwf-2-sceffxaewwlawq abinol (THC) measurementOrdered By: Issa Chapin on 01-08-2025 Cannabinoids Screen Ql (U) Negative < 50 ng/mL [facility] Urine glucose detectionOrder ed By: Issa Chapin on 01-08-2025 Glucose Ql (U) Normal mg/dl Normal [facility] Urine leukocyte esterase det ection by dipstickOrdered By: Issa Chapin on 01-08-2025 Leukocyte esterase Test strip Ql (U) 100 /ul High Negative [facility] Urine pHOrdered By: Issa beth on 01-08-2025 pH (U) 6.0 [pH] 5.0 - 8.0 [facility] Urine phencyclidine (PCP) de tectionOrdered By: Issa Chapin on 01-08-2025 Phencyclidine Ql (U) Negative < 25 ng/mL [facility] Urine sediment bacteria coun t by microscopy (number/high power field)Ordered By: Issa Chapin on 01-08-2025 Bacteria LM.HPF (Urine sed) [#/Area] 2 /[HPF] None Seen [facility] Urine specific gravity measu rementOrdered By: Issakirit Chapin on 01-08-2025 Specific gravity (U) [Rel density] 1.020 1.002-1.030 [facility] Urine urobilinogen measureme ntOrdered By: Issakirit Chapin on 01-08-2025 Urobilinogen Ql (U) 1 mg/dl High Normal [facility] White blood cell (WBC) count Ordered By: Issa Chapin on 01-08-2025 WBC (Bld) [#/Vol] 9.8 10*3/uL 4.4-11.0 [facility] White blood cell countOrdere d By: Issa Chapin on 01-08-2025 White blood cell count 25-50 SEEN /hpf 0-5 [facility] CNPNon 12-25-2024 CNPN Telephone (FAMPWS) PERNELL RODRIGUEZ ([id number]) 1960 F IPA Date Time Provider Department 12/25/24 HOMER BRADFORD [facility] During your visit today, we recorded the following information about you: Priyanka Chavez RN 12/25/2024 2:19 PM Signed Patient requesting PCP to advise on recent lab results, when able. OMARI Molina Jeffrey A, MD 12/25/2024 5:34 PM Signed Let patient know A1c A1c was good at 5.9%. Her kidney functions are improved. Her lipid panel, electrolytes, B12, CBC and Mg were all ok. She needs to come in and complete her urine tests. Priyanka Chavez RN 12/26/2024 8:43 AM Signed Attempted to contact patient. No answer and VM box is not set up. Please try contacting patient again. [employer] message with provider's response sent to patient as well. OMARI Molina Rilee, MA 12/28/2024 11:57 AM Signed Attempted to reach pt, unable to reach and unable to LM. Letter being sent to pt to contact office regarding her recent lab results. Did not read [employer] message. Letter mailed to pt asking for a call back. TAMRA Mendoza Rilee, MA 01/09/2025 3:01 PM Signed Pt has been admitted into the Hospital. Jose Jarrell MA Allergies As of Date: 12/25/2024 Noted Allergy Reaction PENICILLINS 03/30/2006 4 - Hives TETANUS, DIPHTHERIA TOX ABSORB AD*12/28/2014 7 - Swelling Comments: local reaction ASPIRIN 01/04/2023 16 - Unknown BENZTROPINE 02/12/2014 16 - Unknown DIAZEPAM 02/12/2014 16 - Unknown IMODIUM (LOPERAMIDE) 05/23/2018 14 - Other: See Comments Comments: Chest pain MELLARIL (THIORIDAZINE) 02/12/2014 8 - GI Upset PNEUMOVAX 23 (PNEUMOCOCCAL 23-SHARLA*12/25/2014 5 - Intolerance SULFA (SULFONAMIDE ANTIBIOTICS) 11/24/2015 8 - GI Upset Comments: Causes vomiting and rash TEGRETOL (CARBAMAZEPINE) 02/12/2014 8 - GI Upset Date Reviewed: 12/18/2024 Reviewed by: Homer Bradford MD - Fully Assessed Reason for Visit: Results [95] Prescriptions as of 01/09/2025 - lovastatin 40 mg tablet TAKE 1 TABLET BY MOUTH DAILY AT BEDTIME. FOR CHOLESTEROL. - LORazepam (ATIVAN) 0.5 mg Take by mouth two times a day as needed. - fesoterodine (TOVIAZ) 4 mg Tb24 extended release tablet Take 4 mg by mouth once daily. - spironolactone (ALDACTONE) 25 mg tablet Take 1 tablet by mouth once daily. To get her to her appt with cardio - furosemide (LASIX) 20 mg tablet Take 1 tablet by mouth two times a day. To get her to her appt with cardio - nitroglycerin sublingual (NITROQUICK) 0.4 mg SL tablet Dissolve 1 tablet under the tongue every 5 minutes as needed for chest pain. - MEDICAL SUPPLY Adult Size Pull On XXL/Bariatric needs 6 a day, Dx: N39.46, R15.9 and M62.81 - omeprazole (PRILOSEC) 40 mg capsule Take 1 capsule by mouth once daily. - hyoscyamine SR (LEVBID) 0.375 mg 12 hr tablet Take 1 tablet by mouth two times a day. - MEDICAL SUPPLY Please replace pull up every 1.5-2 hrs while awake and 1-3 times a night to reduce risk of skin break down and secondary infections. #240 a month Dx: N39.46 and R15.9 - traZODone (DESYREL) 100 mg tablet 1 tablet daily at bedtime. Per psych: Dr. Alvarez, not on as of 11/16/2023 - ipratropium-albuterol (DUONEB) 0.5 mg-3 mg(2.5 mg base)/3 mL nebu Inhale 3 mL as instructed every 3 hours as needed for wheezing/shortness of breath. For SOB related to ACUTE RESPIRATORY FAILURE WITH HYPOXIA (J96.01) while awake, Dr. Dallin Christopher: Pulm. not on as of 11/16/2023 - rimegepant (NURTEC ODT) 75 mg disintegrating tablet Take 1 tablet by mouth once daily as needed. Per Neuro, not on as of 11/16/2023 - cyanocobalamin (VITAMIN B-12) 500 mcg tablet Take 1 tablet by mouth once daily. not on as of 11/16/2023 - amantadine HCl (SYMMETREL) 100 mg capsule Take 1 capsule by mouth two times a day. Per Neuro, Dr. Calderón, not on as of 11/16/2023 - fludrocortisone (FLORINEF) 0.1 mg tablet Take 1 tablet by mouth once daily. Per Neuro, Dr. Calderón, not on as of 11/16/2023 - QUEtiapine ER (SEROQUEL XR) 200 mg 24 hr tablet Take 1 tablet by mouth two times a day. Per psych, Dr. Negrete, not on as of 11/16/2023 - citalopram hydrobromide (CELEXA) 10 mg tablet Take 1 tablet by mouth once daily. Per psych, Dr. Negrete, - albuterol HFA (VENTOLIN HFA) 90 mcg/actuation inhaler INHALE 2 PUFFS INSTRUCTED EVERY FOUR HOURS NEEDED. Dr. Christopher: Pulm - melatonin (MELATIN ORAL) Take by mouth as directed. - apixaban (ELIQUIS) 5 mg tab(s) Take 1 tablet by mouth twice daily. Per Cardio, Fish - COMPOUNDED PRESCRIPTION Adult diapers size XL Change diaper up to seven times a day. # 210 diapers With 5 refills Dx: R32 and R15.9 - omega-3 fatty acids 1,000 mg cap Take 2 capsules by mouth once daily. Problem List As Of Date 12/25/2024 Noted Resolved Hives [L50.9] 01/14/2014 Extrapyramidal reaction [G25.9] 01/14/2014 Hypotension [I95.9] 01/14/2014 Diabetic eye exam (HCC) [Z01.0 (more content not included)... Normal [facility] CBC W Auto Differential pane l (Bld)on 12-18-2024 Basophils (Bld) [#/Vol] 0.03 10*3/uL [facility] Basophils/100 WBC (Bld) 0.4 % [facility] Differential cell count method Nom (Bld) Auto [facility] Eosinophils (Bld) [#/Vol] 0.24 10*3/uL [facility] Eosinophils/100 WBC (Bld) 3.1 % [facility] Erythrocyte distribution width (RBC) [Ratio] 13.8 % 11.5 - 15.0 % [facility] Hematocrit (Bld) [Volume fraction] 44.6 % 36.0 - 46.0 % [facility] Hemoglobin (Bld) [Mass/Vol] 13.8 g/dL 11.5 - 15.5 g/dL [facility] Immature granulocytes (Bld) [#/Vol] [facility] Immature granulocytes/100 WBC (Bld) 0.1 % [facility] Lymphocytes (Bld) [#/Vol] 2.33 10*3/uL [facility] Lymphocytes/100 WBC (Bld) 29.7 % [facility] MCH (RBC) [Entitic mass] 30.1 pg 26. 0 - 34.0 pg [facility] MCHC (RBC) [Mass/Vol] 30.9 g/dL 30.5 - 36.0 g/dL [facility] MCV (RBC) [Entitic vol] 97.4 fL 80.0 - 100.0 fL [facility] Monocytes (Bld) [#/Vol] 0.61 10*3/uL [facility] Monocytes/100 WBC (Bld) 7.8 % [facility] Neutrophils (Bld) [#/Vol] 4.62 10*3/uL [facility] Neutrophils/100 WBC (Bld) 58.9 % [facility] Nucleated RBC (Bld) [#/Vol] NINF [facility] Nucleated RBC/100 WBC (Bld) [Ratio] 0 % /100 WBC [facility] Platelet mean volume (Bld) [Entitic vol] 10.9 fL 9.0 - 12.7 fL [facility] Platelets (Bld) [#/Vol] 281 10*3/uL [facility] RBC (Bld) [#/Vol] 4.58 10*6/uL 3.90 - 5.2 0 m/uL [facility] WBC (Bld) [#/Vol] 7.84 10*3/uL [facility] Basophils (Bld) [#/Vol] 0.03 10*3/uL Normal <0.11 [facility] Comment on above: Order Comment: Speci men Type: BLOOD SPECIMENOrdering Facility: [facility] Address: [address] [place] [address] Performed By: #### 5 7021-8 ####[facility] LABCLIA [id number] [address] [place] Basophils/100 WBC (Bld) 0.4 % Normal [facility] Comment on above: Order Comment: Speci men Type: BLOOD SPECIMENOrdering Facility: [facility] Address: [address] [place] [address] Performed By: #### 5 7021-8 ####[facility] LABCLIA [id number] [place] [address] [place] Differential cell count method Nom (Bld) Auto Normal [facility] Comment on above: Order Comment: Speci men Type: BLOOD SPECIMENOrdering Facility: [facility] Address: [address] [place] [address] Performed By: #### 5 7021-8 ####[facility] LABCLIA [id number] [place] [address] [place] Eosinophils (Bld) [#/Vol] 0.24 10*3/uL Normal <0.46 [facility] Comment on above: Order Comment: Speci men Type: BLOOD SPECIMENOrdering Facility: [facility] Address: [address] [place] [address] Performed By: #### 5 7021-8 ####[facility] LABCLIA [id number] [place] [address] [place] Eosinophils/100 WBC (Bld) 3.1 % Normal [facility] Comment on above: Order Comment: Speci men Type: BLOOD SPECIMENOrdering Facility: [facility] Address: [address] [place] [address] Performed By: #### 5 7021-8 ####[facility] LABCLIA [id number] [place] [address] [place] Erythrocyte distribution width (RBC) [Ratio] 13.8 % Normal 11.5-15.0 [facility] Comment on above: Order Comment: Speci men Type: BLOOD SPECIMENOrdering Facility: [facility] Address: [address] [place] [address] Performed By: #### 5 7021-8 ####[facility] LABCLIA [id number] [place] [address] [place] Hematocrit (Bld) [Volume fraction] 44.6 % Normal 36.0-46.0 [facility] Comment on above: Order Comment: Speci men Type: BLOOD SPECIMENOrdering Facility: [facility] Address: [address] [place] [address] Performed By: #### 5 7021-8 ####[facility] LABCLIA [id number] [place] [address] [place] Hemoglobin (Bld) [Mass/Vol] 13.8 g/dL Normal 11.5-15.5 [facility] Comment on above: Order Comment: Speci men Type: BLOOD SPECIMENOrdering Facility: [facility] Address: [address] [place] [address] Performed By: #### 5 7021-8 ####[facility] LABCLIA [id number] [place] [address] [place] Immature granulocytes (Bld) [#/Vol] 10*3/uL Normal <0.10 [facility] Comment on above: Order Comment: Speci men Type: BLOOD SPECIMENOrdering Facility: [facility] Address: [address] [place] [address] Performed By: #### 5 7021-8 ####[facility] LABCLIA [id number] [place] [address] [place] Immature granulocytes/100 WBC (Bld) 0.1 % Normal [facility] Comment on above: Order Comment: Speci men Type: BLOOD SPECIMENOrdering Facility: [facility] Address: [address] [place] [address] Performed By: #### 5 7021-8 ####[facility] LABCLIA [id number] [place] [address] [place] Lymphocytes (Bld) [#/Vol] 2.33 10*3/uL Normal 1.00-4.00 [facility] Comment on above: Order Comment: Speci men Type: BLOOD SPECIMENOrdering Facility: [facility] Address: [address] [place] [address] Performed By: #### 5 7021-8 ####[facility] LABCLIA [id number] [address] [place] Lymphocytes/100 WBC (Bld) 29.7 % Normal [facility] Comment on above: Order Comment: Speci men Type: BLOOD SPECIMENOrdering Facility: [facility] Address: [address] [place] [address] Performed By: #### 5 7021-8 ####[facility] LABCLIA [id number] [place] [address] [place] MCH (RBC) [Entitic mass] 30.1 pg Normal 26.0-34.0 [facility] Comment on above: Order Comment: Speci men Type: BLOOD SPECIMENOrdering Facility: [facility] Address: [address] [place] [address] Performed By: #### 5 7021-8 ####[facility] LABIA [id number] [address] [place] MCHC (RBC) [Mass/Vol] 30.9 g/dL Normal 30.5-36.0 [facility] Comment on above: Order Comment: Speci men Type: BLOOD SPECIMENOrdering Facility: [facility] Address: [address] [place] [address] Performed By: #### 5 7021-8 ####[facility] LABIA [id number] [place] [address] [place] MCV (RBC) [Entitic vol] 97.4 fL Normal 80.0-100.0 [facility] Comment on above: Order Comment: Speci men Type: BLOOD SPECIMENOrdering Facility: [facility] Address: [address] [place] [address] Performed By: #### 5 7021-8 ####[facility] LABCLIA [id number] [place] [address] [place] Monocytes (Bld) [#/Vol] 0.61 10*3/uL Normal <0.87 [facility] Comment on above: Order Comment: Speci men Type: BLOOD SPECIMENOrdering Facility: [facility] Address: [address] [place] [address] Performed By: #### 5 7021-8 ####[facility] LABCLIA [id number] [address] [address] [place] Monocytes/100 WBC (Bld) 7.8 % Normal [facility] Comment on above: Order Comment: Speci men Type: BLOOD SPECIMENOrdering Facility: [facility] Address: [address] [place] [address] Performed By: #### 5 7021-8 ####[facility] LABCLIA [id number] [place] [address] [place] Neutrophils (Bld) [#/Vol] 4.62 10*3/uL Normal 1.45-7.50 [facility] Comment on above: Order Comment: Speci men Type: BLOOD SPECIMENOrdering Facility: [facility] Address: [address] [place] [address] Performed By: #### 5 7021-8 ####[facility] LABCLIA [id number] [address] [place] Neutrophils/100 WBC (Bld) 58.9 % Normal [facility] Comment on above: Order Comment: Speci men Type: BLOOD SPECIMENOrdering Facility: [facility] Address: [address] [place] [address] Performed By: #### 5 7021-8 ####[facility] LABCLIA [id number] [address] [address] [place] Nucleated RBC (Bld) [#/Vol] 10*3/uL Normal <0.01 [facility] Comment on above: Order Comment: Speci men Type: BLOOD SPECIMENOrdering Facility: [facility] Address: [address] [place] [address] Performed By: #### 5 7021-8 ####[facility] LABCLIA [id number] [place] [address] [place] Nucleated RBC/100 WBC (Bld) [Ratio] 0.0 /100 WBC Normal [facility] Comment on above: Order Comment: Speci men Type: BLOOD SPECIMENOrdering Facility: [facility] Address: [address] [place] [address] Performed By: #### 5 7021-8 ####[facility] LABIA [id number] [place] [address] [place] Platelet mean volume (Bld) [Entitic vol] 10.9 fL Normal 9.0-12.7 [facility] Comment on above: Order Comment: Speci men Type: BLOOD SPECIMENOrdering Facility: [facility] Address: [address] [place] [address] Performed By: #### 5 7021-8 ####[facility] LABIA [id number] [place] [address] [place] Platelets (Bld) [#/Vol] 281 10*3/uL Normal 150-400 [facility] Comment on above: Order Comment: Speci men Type: BLOOD SPECIMENOrdering Facility: [facility] Address: [address] [place] [address] Performed By: #### 5 7021-8 ####[facility] LABIA [id number] [place] [address] [place] RBC (Bld) [#/Vol] 4.58 10*6/uL Normal 3.90-5.[address] [facility] Comment on above: Order Comment: Speci men Type: BLOOD SPECIMENOrdering Facility: [facility] Address: [address] [place] [address] Performed By: #### 5 7021-8 ####[facility] LABCLIA [id number] [address], [facility] [place] WBC (Bld) [#/Vol] 7.84 10*3/uL Normal 3.70-11.[address] [facility] Comment on above: Order Comment: Speci men Type: BLOOD SPECIMENOrdering Facility: [facility] Address: [address] [place] [address] Performed By: #### 5 7021-8 ####[facility] LABCLIA [id number] [address] OF [facility] CNOVon 12-18-2024 CNOV Office Visit (FAMPWS ) PERNELL RODRIGUEZ ([id number]) 1960 F Date Time Provider Department 12/18/24 11:20 AM [facility] your visit today, we recorded the following information about you: Pulse Respiration Blood pressure Weight 87/minute 18/minute 104/70 114.8 kg Homer Bradford MD 12/18/2024 9:43 PM Signed Chief Complaint Patient presents with: Hospital Follow Up HPI Pernell Rodriguez is a 64 year old female who presents here today for Hospital Discharge Follow up.. Hospital 09/12/2024 through 09/21/2024 ER visit 11/04/2024 ER visit 11/12/2024 ER 11/14/2024: After each of these visits the Pernell was instructed to f/u with PCP and never did. The nodule in the right upper lobe was new compared to a known lung nodule on the left. Patient has not see cardio in the past 2-3 years, Pulmonary in the past 3-4 years. 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 Pernell is a 64-year-old female with a history of multiple chronic conditions, including cardiovascular and pulmonary issues, presenting for follow-up after several hospitalizations and a period of homelessness. She is accompanied by her caregiver, who is providing history on her behalf. Pernell has been living on the streets and has had multiple hospitalizations in the past few months. She was first admitted to [facility] on 09/12/2023, after returning from [place], for a blood clot and was discharged with a 30-day prescription for Eliquis. She has not followed up with her primary care physician or specialists since then and has been off Eliquis for 2-3 months. 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 She has been living with a friend temporarily but does not have a permanent place to live and is technically still homeless. 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 She has been experiencing anxiety and panic attacks and has been relying on her caregiver for support. She has not been taking her medications regularly and has been missing doctor's appointments. She has been experiencing swelling in her legs, coughing, and difficulty walking. She has also been experiencing lumps in her neck and collarbones. She has not been experiencing chest pain, heartburn, or discomfort when urinating. She has not been experiencing seizures or tremors. She has been experiencing pain in her shoulder and has not been able to do physical therapy exercises. She has been experiencing memory loss and difficulty remembering appointments. She has been experiencing skin irritation and breakdown due to incontinence and obesity. She has been experiencing difficulty tolerating heat and cold. She has not been experiencing symptoms of low blood sugar or passing out. She has been experiencing difficulty breathing and has not been using a nebulizer. She has been experiencing difficulty sleeping and has been using a walker. She has been experiencing difficulty managing her finances and has been relying on her caregiver for support. She has been experiencing difficulty managing her medications and has been relying on her caregiver for support. She has been experiencing difficulty managing her appointments and has been relying on her caregiver for support. She has been experiencing difficulty managing her living situation and has been relying on her caregiver for support. She has been experiencing difficulty managing her health and has been relying on her caregiver for support. Past medical history, appointments, medications, allergies reviewed. Previous Medical History PAST MEDICAL HISTORY Diagnosis Date ASHD (arteriosclerotic heart disease) 10/25/[address] Goins Bilateral leg edema 04/25/2015 Bipolar affective disorder (HCC) 04/25/[address] Colindres Chest pain 02/14/[address] Jacob in [facility]. Had a normal cardiac CTA in 2009 with no calcium. Chronic back pain greater than 3 months duration 04/02/2015 Chronic insomnia 03/12/2020 Ilya Calderón ([facility]) on melatonin. Chronic obstructive pulmonary disease (HCC) 04/25/2015 Chronic pain 01/14/2014 Constipation 02/12/2014 [place] or callus 11/16/2015 Current use of proton pump inhibitor 10/11/2017 CVA (cerebral infarction) 01/14/2014 Diabetic eye exam ([facility]) 01/14/[address] Sanchez last done 03/02/2019 Diabetic foot ([facility]) 01/14/[address] Martins Extrapyramidal reaction 01/14/2014 Gastroesophageal reflux disease without esophagitis 04/25/2015 History of CVA (cerebrovascular accident) 04/25/[address] Ilya Calderón ([facility]) Hives (more content not included)... Normal [facility] Comprehensive metabolic 2000 panelon 12-18-2024 Albumin [Mass/Vol] 3.8 g/dL Low 3.9-4.9 [facility] Comment on above: Order Comment: Speci men Type: BLOOD SPECIMEN Ordering Facility: [facility] Address: [address] [place] [address] Performed By: #### 5 5454-3 #### [facility] CLIA [id number] [address] [place] [address] [place] ALP [Catalytic activity/Vol] 79 U/L Normal 34-123 [facility] Comment on above: Order Comment: Speci men Type: BLOOD SPECIMEN Ordering Facility: [facility] Address: [address] [place] [address] Performed By: #### 5 5454-3 #### [facility] CLIA [id number] [address] [place] [address] [place] ALT [Catalytic activity/Vol] 10 U/L Normal 7-38 [facility] Comment on above: Order Comment: Speci men Type: BLOOD SPECIMEN Ordering Facility: [facility] Address: [address] [place], [place] [address] Performed By: #### 5 5454-3 #### [facility] CLIA [id number] [address] [place], [place] [address] [place] Anion gap [Moles/Vol] 7 mmol/L Low 8-15 [facility] Comment on above: Order Comment: Speci men Type: BLOOD SPECIMEN Ordering Facility: [facility] Address: [address] [place] [address] Performed By: #### 5 5454-3 #### [facility] CLIA [id number] [address] [place] [address] [place] AST [Catalytic activity/Vol] 16 U/L Normal 13-35 [facility] Comment on above: Order Comment: Speci men Type: BLOOD SPECIMEN Ordering Facility: [facility] Address: [address] [place] [address] Performed By: #### 5 5454-3 #### [facility] CLIA [id number] [address] [place] [address] [place] Bilirubin [Mass/Vol] 0.3 mg/dL Normal 0.2-1.3 [facility] Comment on above: Order Comment: Speci men Type: BLOOD SPECIMEN Ordering Facility: [facility] Address: [address] [place], [place] [address] Performed By: #### 5 5454-3 #### [facility] CLIA [id number] [address] [place], [place] [address] [place] Calcium [Mass/Vol] 9.5 mg/dL Normal 8.5-10.2 [facility] Comment on above: Order Comment: Speci men Type: BLOOD SPECIMEN Ordering Facility: [facility] Address: [address] [place], [place] [address] Performed By: #### 5 5454-3 #### [facility] CLIA [id number] [address] [place] [address] [place] Chloride [Moles/Vol] 110 mmol/L High 98-107 [facility] Comment on above: Order Comment: Speci men Type: BLOOD SPECIMEN Ordering Facility: [facility] Address: [address] [place] [address] Performed By: #### 5 5454-3 #### [facility] CLIA [id number] [address] [place] [address] [place] CO2 [Moles/Vol] 26 mmol/L Normal 22-30 [facility] Comment on above: Order Comment: Speci men Type: BLOOD SPECIMEN Ordering Facility: [facility] Address: [address] [place] [address] Performed By: #### 5 5454-3 #### [facility] CLIA [id number] [address] [place] [address] [place] Creatinine [Mass/Vol] 1.21 mg/dL High 0.58-0.96 [facility] Comment on above: Order Comment: Speci men Type: BLOOD SPECIMEN Ordering Facility: [facility] Address: [address] [place] [address] Performed By: #### 5 5454-3 #### [facility] CLIA [id number] [address] [place] [address] [place] Creatinine and Glomerular filtration rate.predicted panel (S/P/Bld) 51 mL/min/1.73m??? Low >=60 [facility] Comment on above: Order Comment: Speci men Type: BLOOD SPECIMEN Ordering Facility: [facility] Address: [address] [place] [address] Result Comment: Maurilio mated Glomerular Filtration Rate (eGFR) is calculated using the 2020 CKD-EPI creatinine equation. This equation utilizes serum creatinine, sex, and age as parameters. The creatinine assay has traceable calibration to isotope dilution-mass spectrometry. Refer to KDIGO guidelines for clinical interpretation. In patients with unstable renal function, e.g. those with acute kidney injury, the eGFR may not accurately reflect actual GFR. Performed By: #### 5 5454-3 #### [facility] IA [id number] [address] [place] [address] [place] Glucose [Mass/Vol] 94 mg/dL Normal 74-99 [facility] Comment on above: Order Comment: Speci men Type: BLOOD SPECIMEN Ordering Facility: [facility] Address: [address] [place] [address] Result Comment: The [place] Diabetes Association (ADA) provides guidance for cutoff values for fasting glucose and random glucose. The ADA defines fasting as no caloric intake for at least 8 hours. Fasting plasma glucose results between 100 to 125 mg/dL indicate increased risk for diabetes (prediabetes). Fasting plasma glucose results greater than or equal to 126 mg/dL meet the criteria for diagnosis of diabetes. In the absence of unequivocal hyperglycemia, results should be confirmed by repeat testing. In a patient with classic symptoms of hyperglycemia or hyperglycemic crisis, random plasma glucose results greater than or equal to 200 mg/dL meet the criteria for diagnosis of diabetes. Reference: Standards of Medical Care in Diabetes 2016, [place] Diabetes Association. Diabetes Care. 2016.39(Suppl 1). Performed By: #### 5 5454-3 #### [facility] CLIA [id number] [address] [place] [address] [place] Potassium [Moles/Vol] 4.4 mmol/L Normal 3.7-5.1 [facility] Comment on above: Order Comment: Speci men Type: BLOOD SPECIMEN Ordering Facility: [facility] Address: [address] [place] [address] Performed By: #### 5 5454-3 #### [facility] IA [id number] [address] [place] [address] [place] Protein [Mass/Vol] 6.3 g/dL Normal 6.3-8.0 [facility] Comment on above: Order Comment: Speci men Type: BLOOD SPECIMEN Ordering Facility: [facility] Address: [address] [place], [place] [address] Performed By: #### 5 5454-3 #### [facility] CLIA [id number] [address] [place] [address] [place] Sodium [Moles/Vol] 143 mmol/L Normal 136-144 [facility] Comment on above: Order Comment: Speci men Type: BLOOD SPECIMEN Ordering Facility: [facility] Address: [address] [place] [address] Performed By: #### 5 5454-3 #### [facility] CLIA [id number] [address] [place] [address] [place] Urea nitrogen [Mass/Vol] 16 mg/dL Normal 7-21 [facility] Comment on above: Order Comment: Savannai men Type: BLOOD SPECIMEN Ordering Facility: [facility] Address: [address] [place] [address] Performed By: #### 5 5454-3 #### [facility] CLIA [id number] [address] [place] [address] [place] HbA1c (Bld)on 12-18-2024 Average glucose Estimated from glycated hemoglobin (Bld) [Mass/Vol] 123 mg/dL [facility] Comment on above: eAG: (Estimated aver age glucose) is a calculated value from HgbA1c and is school admissions representative of the average blood glucose level in the last 2-3 month period. HbA1c (Bld) [Mass fraction] 5.9 % High 4.3 - 5.6 % [facility] Comment on above: [place] Diabetes As sociation guidelines indicate that patients with HgbA1c in the range 5.7-6.4% are at increased risk for development of diabetes, and intervention by lifestyle modification may be beneficial. HgbA1c greater or equal to 6.5% is considered diagnostic of diabetes. Interpretation and review of laboratory results Abnormal [facility] Average glucose Estimated from glycated hemoglobin (Bld) [Mass/Vol] 123 mg/dL Normal [facility] Comment on above: Order Comment: Speci men Type: BLOOD SPECIMEN Ordering Facility: [facility] Address: [address] [place], [place] [address] Result Comment: eAG: (Estimated average glucose) is a calculated value from HgbA1c and is school admissions representative of the average blood glucose level in the last 2-3 month period. Performed By: #### 5 5454-3 #### [facility] CLIA [id number] [address] [place] [address] [place] HbA1c (Bld) [Mass fraction] 5.9 % High 4.3-5.6 [facility] Comment on above: Order Comment: César carrera Type: BLOOD SPECIMEN Ordering Facility: [facility] Address: [address] [place] [address] Result Comment: [place] Diabetes Association guidelines indicate that patients with HgbA1c in the range 5.7-6.4% are at increased risk for development of diabetes, and intervention by lifestyle modification may be beneficial. HgbA1c greater or equal to 6.5% is considered diagnostic of diabetes. Performed By: #### 5 5454-3 #### [facility] CLIA [id number] [address] [place] [address] [place] LIPID PANEL, NONFASTINGon Cholesterol [Mass/Vol] 129 mg/dL Normal <200 [facility] Comment on above: Order Comment: César carrera Type: BLOOD SPECIMEN Ordering Facility: [facility] Address: [address] [place] [address] Result Comment: <200 mg/dL, Desirable 200-239 mg/dL, Borderline high >239 mg/dL, High Performed By: #### 5 5454-3 #### [facility] CLIA [id number] [address] [place] [address] [place] HDL CHOLESTEROL, NF 41 mg/dL Normal >[address] [facility] Comment on above: Order Comment: César carrera Type: BLOOD SPECIMEN Ordering Facility: [facility] Address: [address] [place] [address] Result Comment: 40-5 9 mg/dL, Acceptable >59 mg/dL, High: Negative risk factor for coronary heart disease <40 mg/dL, Low: Positive risk factor for coronary heart disease Performed By: #### 5 5454-3 #### [facility] CLIA [id number] [address] [place] [address] [place] LDL CHOLESTEROL CALCULATED, NF 67 mg/dL Normal <100 [facility] Comment on above: Order Comment: Speci men Type: BLOOD SPECIMEN Ordering Facility: [facility] Address: [address] [place] [address] Result Comment: <100 mg/dL, Optimal 100-129 mg/dL, Near optimal/above optimal 130-159 mg/dL, Borderline high 160-189 mg/dL, High >189 mg/dL, Very high Secondary prevention optimal LDL Cholesterol levels are recommended to be <70 mg/dL LDL cholesterol is calculated using the Raya-NIH equation. Performed By: #### 5 5454-3 #### [facility] CLIA [id number] [address] [place] [address] [place] LDL/HDL RATIO, NF 1.63 mg/dL Normal <2.54 [facility] Comment on above: Order Comment: César men Type: BLOOD SPECIMEN Ordering Facility: [facility] Address: [address] [place] [address] Result Comment: Flex collazo: 1. National Cholesterol Education Program ATP III Guideline At-A-Glance Quick Desk Reference: National Heart, Lung, and Blood [place]. National Institutes of Health. 2001: NIH Publication No. 01-3305. 2. An International Atherosclerosis Society position paper: global recommendations for the management of dyslipidemia: executive summary, Atherosclerosis. 2014: 232(2):410-413. Performed By: #### 5 5454-3 #### [facility] CLIA [id number] [address] [place] [address] [place] NON HDL CHOL, NF 88 mg/dL Normal <130 [facility] Comment on above: Order Comment: César deandre Type: BLOOD SPECIMEN Ordering Facility: [facility] Address: [address] [place] [address] Result Comment: <130 mg/dL, Optimal 130-159 mg/dL, Near optimal/above optimal 160-189 mg/dL, Borderline high 190-219 mg/dL, High >219 mg/dL, Very high Secondary prevention optimal non HDL Cholesterol levels are recommended to be <100 mg/dL Performed By: #### 5 5454-3 #### [facility] CLIA [id number] [address] [place], [place] [address] [place] T CHOL/HDL RATIO NF 3.15 mg/dL Normal <5.[address] [facility] Comment on above: Order Comment: Speci men Type: BLOOD SPECIMEN Ordering Facility: [facility] Address: [address] [place] [address] Performed By: #### 5 5454-3 #### [facility] CLIA [id number] [address] [place] [address] [place] TRIGLYCERIDES, NF 113 mg/dL Normal <150 [facility] Comment on above: Order Comment: Speci men Type: BLOOD SPECIMEN Ordering Facility: [facility] Address: [address] [place] [address] Result Comment: <150 mg/dL, Normal 150-199 mg/dL, Borderline high 200-499 mg/dL, High >499 mg/dL, Very high Performed By: #### 5 5454-3 #### [facility] CLIA [id number] [address] [place] [address] [place] VLDL CHOLESTEROL, NF 17 mg/dL Normal <30 [facility] Comment on above: Order Comment: Speci men Type: BLOOD SPECIMEN Ordering Facility: [facility] Address: [address] [place] [address] Performed By: #### 5 5454-3 #### [facility] CLIA [id number] [address] [place], [place] [address] [place] Magnesium SerPl-mCncon 12-18 Magnesium [Mass/Vol] 2.1 mg/dL Normal 1.7-2.3 [facility] Comment on above: Order Comment: Speci men Type: BLOOD SPECIMEN Ordering Facility: [facility] Address: [address] [place] [address] Performed By: #### 5 5454-3 #### [facility] CLIA [id number] [address] [place] [address] [place] Vit B12 SerPl-mCncon 025 Cobalamin (Vitamin B12) [Mass/Vol] 428 pg/mL Normal 232-1245 [facility] Comment on above: Order Comment: Speci men Type: BLOOD SPECIMEN Ordering Facility: [facility] Address: [address] [place] [address] Performed By: #### 5 5454-3 #### [facility] CLIA [id number] [address] [place] [address] OF [place] CNPNon 12-07-2024 [facility]N Telephone [facility] PERNELL RODRIGUEZ ([id number]) 1960 F Date Time Provider Department 12/07/24 [facility] During your visit today, we recorded the following information about you: Shanti Monreal RN 12/07/2024 2:50 PM Signed Pernell calls to report that she needs an order for incontinence supplies (2 XL pull ups) faxed to [facility] at [phone]. Patient reports that the full size briefs are bulky and causing too much skin irritation. Patient has an appointment on 12/11/2024 but reports she needs pull ups ordered today. Please review and advise, OMARI Farrell Jeffrey A, MD 12/07/2024 3:59 PM Signed So patient's past scripts have been for size XXL. Is she wanting just XL Shanti Monreal RN 12/07/2024 4:28 PM Signed She is asking for the XXL. OMARI Farrell Roxanne, MA 12/11/2024 9:44 AM Signed Spoke with patient today and she will be out soon. Please file order. TAMRA Aldirch Jeffrey A, MD 12/11/2024 11:06 AM Signed Order ready to be faxed. Rajani Granger MA 12/11/2024 11:33 AM Signed Attempted to contact patient to let her know order for pull ups has been faxed. Faxed order. TAMRA Aldrich Barbara, RN 12/11/2024 1:58 PM Signed Pt calling in to check on status of order. Let her know order was faxed this morning. Pt states she will since order has been sent. Allergies As of Date: 12/07/2024 Noted Allergy Reaction PENICILLINS 03/30/2006 4 - Hives TETANUS, DIPHTHERIA TOX ABSORB AD*12/28/2014 7 - Swelling Comments: local reaction ASPIRIN 01/04/2023 16 - Unknown BENZTROPINE 02/12/2014 16 - Unknown DIAZEPAM 02/12/2014 16 - Unknown IMODIUM (LOPERAMIDE) 05/23/2018 14 - Other: See Comments Comments: Chest pain MELLARIL (THIORIDAZINE) 02/12/2014 8 - GI Upset PNEUMOVAX 23 (PNEUMOCOCCAL 23-SHARLA*12/25/2014 5 - Intolerance SULFA (SULFONAMIDE ANTIBIOTICS) 11/24/2015 8 - GI Upset Comments: Causes vomiting and rash TEGRETOL (CARBAMAZEPINE) 02/12/2014 8 - GI Upset Date Reviewed: 03/22/2024 Reviewed by: Aspen Bell LPN - Fully Assessed Reason for Visit: Orders [681] Cmt: for incontinence supplies Primary Visit Diagnosis:Mixed incontinence urge and stress (male)(female) [N39.46] Other Visit Diagnoses:Muscle weakness (generalized) [M62.81] Incontinence of feces, unspecified fecal incontinence type [R15.9] Order(s):MEDICAL SUPPLYAdult Size Pull On XXL/Bariatric needs 6 a day, Dx: N39.46, R15.9 and M62.81Disp: 240 eachRfl: 11 Prescriptions as of 12/11/2024 - MEDICAL SUPPLY Adult Size Pull On XXL/Bariatric needs 6 a day, Dx: N39.46, R15.9 and M62.81 - omeprazole (PRILOSEC) 40 mg capsule Take 1 capsule by mouth once daily. - hyoscyamine SR (LEVBID) 0.375 mg 12 hr tablet Take 1 tablet by mouth two times a day. - lovastatin 40 mg tablet TAKE 1 TABLET BY MOUTH DAILY AT BEDTIME. FOR CHOLESTEROL. - MEDICAL SUPPLY Please replace pull up every 1.5-2 hrs while awake and 1-3 times a night to reduce risk of skin break down and secondary infections. #240 a month Dx: N39.46 and R15.9 - traZODone (DESYREL) 100 mg tablet 1 tablet daily at bedtime. Per psych: Dr. Alvarez, not on as of 11/16/2023 - ipratropium-albuterol (DUONEB) 0.5 mg-3 mg(2.5 mg base)/3 mL nebu Inhale 3 mL as instructed every 3 hours as needed for wheezing/shortness of breath. For SOB related to ACUTE RESPIRATORY FAILURE WITH HYPOXIA (J96.01) while awake, Dr. Dallin Christopher: Pulm. not on as of 11/16/2023 - rimegepant (NURTEC ODT) 75 mg disintegrating tablet Take 1 tablet by mouth once daily as needed. Per Neuro, not on as of 11/16/2023 - cyanocobalamin (VITAMIN B-12) 500 mcg tablet Take 1 tablet by mouth once daily. not on as of 11/16/2023 - amantadine HCl (SYMMETREL) 100 mg capsule Take 1 capsule by mouth two times a day. Per Neuro, Dr. Calderón, not on as of 11/16/2023 - fludrocortisone (FLORINEF) 0.1 mg tablet Take 1 tablet by mouth once daily. Per Neuro, Dr. Calderón, not on as of 11/16/2023 - QUEtiapine ER (SEROQUEL XR) 200 mg 24 hr tablet Take 1 tablet by mouth two times a day. Per psych, Dr. Negrete, not on as of 11/16/2023 - citalopram hydrobromide (CELEXA) 10 mg tablet Take 1 tablet by mouth once daily. Per psych, Dr. Negrete, - albuterol HFA (VENTOLIN HFA) 90 mcg/actuation inhaler INHALE 2 PUFFS INSTRUCTED EVERY FOUR HOURS NEEDED. Dr. Christopher: Pulm - furosemide (LASIX) 20 mg tablet Take 1 tablet by mouth two times a day. Per Rajani Fish: cadio - spironolactone (ALDACTONE) 25 mg tablet Take 1 tablet by mouth once daily. Per Rajani Fish: cardio - melatonin (MELATIN ORAL) Take by mouth as directed. - nitroglycerin sublingual (NITROQUICK) 0.4 mg SL tablet Dissolve 1 tablet under the tongue every 5 minutes as needed for chest pain. - apixaban (ELIQUIS) 5 mg tab(s) Take 1 tablet by mouth twice daily. Per Cardio, Fish - COMPO (more content not included)... Normal [facility] Abdomen/Pelvis W IV Cont ONL Yon 11-14-2024 Abdomen/Pelvis W IV Cont ONLY Normal [facility] Absolute lymphocyte countOrd ered By: Wyatt Amos on 11-14-2024 Lymphocytes Auto (Unsp spec) [#/Vol] 1.83 10*3/uL 0.83-4.51 [facility] Anion gap in Serum or Plasma Ordered By: Wyatt Amos on 11-14-2024 Anion gap [Moles/Vol] 12 mmol/L 5-15 [facility] Anisocytosis LM Ql (Bld)Orde red By: Wyatt Amos on 11-14-2024 Anisocytosis Ql (Bld) CATEGORY DEVELOPMENT MANAGER [facility] Automated lymphocyte count a s percentage of total leukocytesOrdered By: Wyatt Amos on 11-14-2024 Lymphocytes/100 WBC Auto (Unsp spec) 20.8 % 19- [facility] BUN/creatinine ratioOrdered By: Wyatt Amos on 11-14-2024 Urea nitrogen/Creatinine [Mass ratio] 12.9 mg/mg 10-20 [facility] Band neutrophils %Ordered By : Wyatt Amos on 11-14-2024 Band neutrophils % CATEGORY DEVELOPMENT MANAGER [facility] Basophil percentageOrdered B y: Wyatt Amos on 11-14-2024 Basophils/100 WBC (Bld) 0.3 % 0-1 [facility] Basophils/100 WBC Manual cnt (Unsp spec)Ordered By: Wyatt Amos on 11-14-2024 Basophils/100 WBC (Unsp spec) CATEGORY DEVELOPMENT MANAGER [facility] Bilirubin Test strip Ql (U)O rdered By: Wyatt Amos on 11-14-2024 Bilirubin Ql (U) Negative Negative [facility] Bilirubin, totalOrdered By: Wyatt Amos on 11-14-2024 Bilirubin [Mass/Vol] 0.41 mg/dL 0.00-1.30 [facility] Bite cells detectionOrdered By: Wyatt Amos on 11-14-2024 Bite cells LM Ql (Bld) CATEGORY DEVELOPMENT MANAGER [facility] Blood Debra rods detection by light microscopyOrdered By: Wyatt Amos on 11-14-2024 Debra rods LM Ql (Bld) CATEGORY DEVELOPMENT MANAGER [facility] Blood acanthocytes detection by light microscopyOrdered By: Wyatt Amos on 11-14-2024 Acanthocytes LM Ql (Bld) [facility] Blood basophilic stippling d etection by light microscopyOrdered By: Wyatt Amos on 11-14-2024 Basophilic stippling LM Ql (Bld) [facility] Blood maksim cells detection b y light microscopyOrdered By: Wyatt Amos on 11-14-2024 [place] cells LM Ql (Bld) CATEGORY DEVELOPMENT MANAGER [facility] Blood dohle body detection b y light microscopyOrdered By: Wyatt Amos on 11-14-2024 Dohle body LM Ql (Bld) CATEGORY DEVELOPMENT MANAGER [facility] Blood leukocytes count corre cted for nucleated erythrocytes (number/volume)Ordered By: Wyatt Amos on 11-14-2024 WBC corrected for nucl RBC (Bld) [#/Vol] CATEGORY DEVELOPMENT MANAGER [facility] Blood manual differential co mment interpretation (narrative result)Ordered By: Wyatt Amos on 11-14-2024 Manual differential comment Jacobo (Bld) [Interp] CATEGORY DEVELOPMENT MANAGER [facility] Blood platelet morphology de termination (nominal result)Ordered By: Wyatt Amos on 11-14-2024 Platelet morphology finding Nom (Bld) CATEGORY DEVELOPMENT MANAGER [facility] Blood polychromasia detectio n by light microscopyOrdered By: Wyatt Mariscal on 11-14-2024 Polychromasia LM Ql (Bld) CATEGORY DEVELOPMENT MANAGER [facility] Blood rouleaux detection by light microscopyOrdered By: Wyatt Amos on 11-14-2024 Rouleaux LM Ql (Bld) CATEGORY DEVELOPMENT MANAGER [facility] Blood schistocyte detection by light microscopyOrdered By: Wyatt Amos on 11-14-2024 Schistocytes LM Ql (Bld) CATEGORY DEVELOPMENT MANAGER [facility] Blood spherocyte detection b y light microscopyOrdered By: Wyatt Amos on 11-14-2024 Spherocytes LM Ql (Bld) CATEGORY DEVELOPMENT MANAGER [facility] Blood vacuolated neutrophils detection by light microscopyOrdered By: Wyatt Amos on 11-14-2024 Neutrophils.vacuolated LM Ql (Bld) CATEGORY DEVELOPMENT MANAGER [facility] CBC W/Diff, Automatedon 10-18 Absolute Lymph 1.83 X10 3/uL Normal 0.83-4.51 [facility] Comment on above: Result Comment: DIFF INCORRECT Performed By: #### L 100.0100, L501.2450, L500.4050 ####[facility] [address] [place], [address] Absolute Neut 6.0 X10 3/uL Normal 2.0-7.7 [facility] Comment on above: Result Comment: DIFF INCORRECT Performed By: #### L 100.0100, L501.2450, L500.4050 ####[facility] [address] [place], [address] Basophils/100 WBC (Bld) 0.3 % Normal 0-1 [facility] Comment on above: Result Comment: DIFF INCORRECT Performed By: #### L 100.0100, L501.2450, L500.4050 ####[facility] [address] [place], [address] Eosinophils/100 WBC (Bld) 2.5 % Normal 0-5 [facility] Comment on above: Result Comment: DIFF INCORRECT Performed By: #### L 100.0100, L501.2450, L500.4050 ####[facility] [address] [place], [address] Erythrocyte distribution width (RBC) [Ratio] 13.8 % Normal 11.6-14.6 [facility] Comment on above: Result Comment: DIFF INCORRECT Performed By: #### L 100.0100, L501.2450, L500.4050 ####[facility] [address] [place], [address] Hematocrit (Bld) [Volume fraction] 43.3 % Normal 37-47 [facility] Comment on above: Result Comment: DIFF INCORRECT Performed By: #### L 100.0100, L501.2450, L500.4050 ####[facility] [address] [place], [address] Hemoglobin (Bld) [Mass/Vol] 14.1 g/dL Normal 12.0-15.0 [facility] Comment on above: Result Comment: DIFF INCORRECT Performed By: #### L 100.0100, L501.2450, L500.4050 ####[facility] [address] [place], [address] IG% 0.200 Normal 0.0-0.9 [facility] Comment on above: Result Comment: IG% - Immature Granulocytes (promyelocytes, myelocytes andmetamyelocytes) > 1% indicates that a LEFT SHIFT is Present. Performed By: #### L 100.0100, L501.2450, L500.4050 ####[facility] [address] [place], [address] Lymphocytes/100 WBC (Bld) 20.8 % Normal 19-41 [facility] Comment on above: Result Comment: DIFF INCORRECT Performed By: #### L 100.0100, L501.2450, L500.4050 ####[facility] [address] [place], [id number] MCH (RBC) [Entitic mass] 30.9 pg Normal 27.0-32.0 [facility] Comment on above: Result Comment: DIFF INCORRECT Performed By: #### L 100.0100, L501.2450, L500.4050 ####[facility] [address] [place], [id number] MCHC (RBC) [Mass/Vol] 32.6 g/dL Normal 32-36 [facility] Comment on above: Result Comment: DIFF INCORRECT Performed By: #### L 100.0100, L501.2450, L500.4050 ####[facility] [address] [place], [id number] MCV (RBC) [Entitic vol] 95.0 fL Normal 81-99 [facility] Comment on above: Result Comment: DIFF INCORRECT Performed By: #### L 100.0100, L501.2450, L500.4050 ####[facility] [address] [place], [id number] Monocytes/100 WBC (Bld) 7.6 % Normal 0-10 [facility] Comment on above: Result Comment: DIFF INCORRECT Performed By: #### L 100.0100, L501.2450, L500.4050 ####[facility] [address] [place], [id number] Neutrophils/100 WBC (Bld) 68.6 % Normal 47-70 [facility] Comment on above: Result Comment: DIFF INCORRECT Performed By: #### L 100.0100, L501.2450, L500.4050 ####[facility] [address] [place], [address] Nucleated RBC (Bld) [#/Vol] 0 10*3/uL Normal 0-5 [facility] Comment on above: Result Comment: DIFF INCORRECT Performed By: #### L 100.0100, L501.2450, L500.4050 ####[facility] [address] [place], [address] Platelet mean volume (Bld) [Entitic vol] 10.5 fL Normal 6.2-12.0 [facility] Comment on above: Result Comment: DIFF INCORRECT Performed By: #### L 100.0100, L501.2450, L500.4050 ####[facility] [address] [place], [id number] Platelets (Bld) [#/Vol] 325 10*3/uL Normal 150-450 [facility] Comment on above: Result Comment: DIFF INCORRECT Performed By: #### L 100.0100, L501.2450, L500.4050 ####[facility] [address] [place], [id number] RBC (Bld) [#/Vol] 4.56 10*6/uL Normal 4.2-5.4 [facility] Comment on above: Result Comment: DIFF INCORRECT Performed By: #### L 100.0100, L501.2450, L500.4050 ####[facility] [address] [place], [address] RDW SD 47.9 fl High 35.1-43.9 [facility] Comment on above: Result Comment: DIFF INCORRECT Performed By: #### L 100.0100, L501.2450, L500.4050 ####[facility] [address] [place], [id number] WBC (Bld) [#/Vol] 8.8 10*3/uL Normal 4.4-11.0 [facility] Comment on above: Result Comment: DIFF INCORRECT Performed By: #### L 100.0100, L501.2450, L500.4050 ####[facility] [address] [place], [address] Carbon dioxide, total [Moles /volume] in Central venous bloodOrdered By: Wyatt Amos on 11-14-2024 CO2 [Moles/Vol] 22.5 mmol/L 21.0-32.0 [facility] Chloride assayOrdered By: Keshav Amos on 11-14-2024 Chloride [Moles/Vol] 105 mmol/L 98-108 [facility] Comprehensive Metabolic Prof ilon 11-14-2024 Albumin [Mass/Vol] 4.2 g/dL Normal 3.4-4.8 [facility] Comment on above: Performed By: #### L 100.0100, L501.2450, L500.4050 ####[facility] [address] [place], [address] Albumin/Globulin [Mass ratio] 1.3 {ratio} Normal 0.9-2.4 [facility] Comment on above: Performed By: #### L 100.0100, L501.2450, L500.4050 ####[facility] [address] [place], [address] ALK PHOS 79 U/L Normal 35-104 [facility] Comment on above: Performed By: #### L 100.0100, L501.2450, L500.4050 ####[facility] [address] [place], [id number] ALT [Catalytic activity/Vol] 19 U/L Normal <=34 [facility] Comment on above: Performed By: #### L 100.0100, L501.2450, L500.4050 ####[facility] [address] [place], [id number] AST [Catalytic activity/Vol] 27 U/L Normal <=31 [facility] Comment on above: Performed By: #### L 100.0100, L501.2450, L500.4050 ####[facility] [address] [place], [address] Bilirubin [Mass/Vol] 0.41 mg/dL Normal 0.00-1.30 [facility] Comment on above: Performed By: #### L 100.0100, L501.2450, L500.4050 ####[facility] [address] [place], [id number] BUN/CRE 12.9 RATIO Normal 10-20 [facility] Comment on above: Performed By: #### L 100.0100, L501.2450, L500.4050 ####[facility] [address] [place], [address] Calcium [Mass/Vol] 9.7 mg/dL Normal 7.6-11.0 [facility] Comment on above: Performed By: #### L 100.0100, L501.2450, L500.4050 ####[facility] [address] [place], [address] Chloride [Moles/Vol] 105 mmol/L Normal 98-108 [facility] Comment on above: Performed By: #### L 100.0100, L501.2450, L500.4050 ####[facility] [address] [place], [address] CO2 [Moles/Vol] 22.5 mmol/L Normal 21.0-32.0 [facility] Comment on above: Performed By: #### L 100.0100, L501.2450, L500.4050 ####[facility] [address] [place], [address] Creatinine [Mass/Vol] 1.31 mg/dL High 0.70-1.20 [facility] Comment on above: Performed By: #### L 100.0100, L501.2450, L500.4050 ####[facility] [address] [place], [address] ECRCL 55.91 ml/min Normal 50-250 [facility] Comment on above: Performed By: #### L 100.0100, L501.2450, L500.4050 ####[facility] [address] [place], [address] GAP 12 Normal 5-15 [facility] Comment on above: Performed By: #### L 100.0100, L501.2450, L500.4050 ####[facility] [address] [place], [address] GFR/1.73 sq M.predicted among non-blacks MDRD (S/P/Bld) [Vol rate/Area] 46 mL/min/{1.73_m2} Low >60 [facility] Comment on above: Result Comment: mL/m in/1.73m2 CKD-EPI Creatinine Equation (2020) Performed By: #### L 100.0100, L501.2450, L500.4050 ####[facility] [address] [place], [address] Globulin (S) [Mass/Vol] 3.2 g/dL Normal 2.2-4.2 [facility] Comment on above: Performed By: #### L 100.0100, L501.2450, L500.4050 ####[facility] [address] [place], [address] Glucose [Mass/Vol] 117 mg/dL High 70-99 [facility] Comment on above: Performed By: #### L 100.0100, L501.2450, L500.4050 ####[facility] [address] [place], [address] Potassium [Moles/Vol] 4.2 mmol/L Normal 3.3-5.1 [facility] Comment on above: Performed By: #### L 100.0100, L501.2450, L500.4050 ####[facility] [address] [place], [address] Sodium [Moles/Vol] 140 mmol/L Normal 133-145 [facility] Comment on above: Performed By: #### L 100.0100, L501.2450, L500.4050 ####[facility] [address] [place], [address] T PROT 7.4 g/dL Normal 5.9-8.4 [facility] Comment on above: Performed By: #### L 100.0100, L501.2450, L500.4050 ####[facility] [address] [place], [address] Urea nitrogen [Mass/Vol] 17 mg/dL Normal 4-19 [facility] Comment on above: Performed By: #### L 100.0100, L501.2450, L500.4050 ####[facility] [address] [place], [address] Emergency Department Summary on 11-14-2024 Emergency Department Summary Normal [facility] Eosinophil percentageOrdered By: Wyatt Amos on 11-14-2024 Eosinophils/100 WBC (Bld) 2.5 % 0-5 [facility] Erythrocyte Lam-Hutchins bod y detectionOrdered By: Wyatt Amos on 11-14-2024 Lam-Hutchins bodies LM Ql (Bld) CATEGORY DEVELOPMENT MANAGER [facility] Erythrocyte distribution wid th ratioOrdered By: Wyatt Amos on 11-14-2024 Erythrocyte distribution width (RBC) [Ratio] 13.8 % 11.6-14.6 [facility] Erythrocyte distribution wid th standard deviationOrdered By: Wyatt Mariscal on 11-14-2024 Erythrocyte distribution width (RBC) [Ratio] 47.9 fl High 35.1-43.9 [facility] Erythrocyte sickle cell dete ctionOrdered By: Wyatt Amos on 11-14-2024 Sickle cells LM Ql (Bld) CATEGORY DEVELOPMENT MANAGER [facility] Glomerular filtration rate ( GFR) estimation/1.73 sq m using serum, plasma, or whole bOrdered By: Wyatt Amos on 11-14-2024 GFR/1.73 sq M.predicted among non-blacks MDRD (S/P/Bld) [Vol rate/Area] 46 mL/min/{1.73_m2} Low >60 [facility] Hematocrit Auto (Bld) [Volum e fraction]Ordered By: Wyatt Amos on 11-14-2024 Hematocrit (Bld) [Volume fraction] 43.3 % 37-47 [facility] Hemoglobin measurementOrdere d By: Wyatt Amos on 11-14-2024 Hemoglobin (Bld) [Mass/Vol] 14.1 g/dL 12.0-15.0 [facility] Hypochromia LM Ql (Bld)Order ed By: Wyatt Amos on 11-14-2024 Hypochromia Ql (Bld) CATEGORY DEVELOPMENT MANAGER [facility] Immature granulocytes/100 WB C Auto (Bld)Ordered By: Wyatt Amos on 11-14-2024 Immature granulocytes/100 WBC (Bld) 0.200 % 0.0-0.9 [facility] Ketones Test strip Ql (U)Ord ered By: Wyatt Amos on 11-14-2024 Ketones Ql (U) Negative Negative [facility] Lipaseon 11-14-2024 Lipase [Catalytic activity/Vol] 24 U/L Normal 13-75 [facility] Comment on above: Result Comment: Mahin yoon note:LIPASE revised reference range effective 22.New Lipase methodology. Expected to produce lower valuesthan the previous assay method.NEW Reference Range: 13 - 75 U/L Performed By: #### L 100.0100, L501.2450, L500.4050 ####[facility] [address] [place], [address] MCV (mean corpuscular volume ) determinationOrdered By: Wyatt Amos on 11-14-2024 MCV (RBC) [Entitic vol] 95.0 fL 81-99 [facility] Macrocytes detectionOrdered By: Wyatt Amos on 11-14-2024 Macrocytes Ql (Bld) CATEGORY DEVELOPMENT MANAGER [facility] Mean corpuscular hemoglobin (MCH) determinationOrdered By: Wyatt Amos on 11-14-2024 MCH (RBC) [Entitic mass] 30.9 pg 27.0-32.0 [facility] Monocyte percentageOrdered B y: Wyatt Amos on 11-14-2024 Monocytes/100 WBC (Bld) 7.6 % 0-10 [facility] Mucus LM Ql (Urine sed)Order ed By: Wyatt Amos on 11-14-2024 Mucus Ql (Urine sed) 0 SEEN /hpf [facility] Neutrophil percentageOrdered By: Wyatt Dandre on 11-14-2024 Neutrophils/100 WBC (Bld) 68.6 % 47-70 [facility] Nitrite Test strip Ql (U)Ord ered By: Wyatt Amos on 11-14-2024 Nitrite Ql (U) Negative Negative [facility] No Panel InformationOrdered By: Wyatt Amos on 11-14-2024 27 U/L <32 [facility] Nucleated red blood cell cou ntOrdered By: Wyatt Amos on 11-14-2024 Nucleated red blood cell count CATEGORY DEVELOPMENT MANAGER [facility] Pathologist review of result s (narrative result)Ordered By: Wyatt Amos on 11-14-2024 Pathologist review Jacobo (Unsp spec) [Interp] CATEGORY DEVELOPMENT MANAGER [facility] Platelet countOrdered By: Keshav Amos on 11-14-2024 Platelets (Bld) [#/Vol] 325 10*3/uL 150-450 [facility] Platelet estimateOrdered By: Wyatt Amos on 11-14-2024 Platelets LM Ql (Bld) CATEGORY DEVELOPMENT MANAGER [facility] Potassium measurement (mass/ volume)Ordered By: Wyatt Amos on 11-14-2024 Potassium (Unsp spec) [Mass/Vol] 4.2 mmol/L 3.3-5.1 [facility] Protein Test strip Ql (U)Ord ered By: Wyatt Amos on 11-14-2024 Protein Ql (U) TNP [facility] Protein, Urine (Random)on Protein (U) [Mass/Vol] 6.9 mg/dL Normal 0.0-12.0 [facility] Comment on above: Performed By: #### L 400.0001, L501.1930 ####[facility] [address] [place], [address] RBC Auto (Bld) [#/Vol]Ordere d By: Wyatt Amos on 11-14-2024 RBC (Bld) [#/Vol] 4.56 10*6/uL 4.2-5.4 [facility] Red blood cell stomatocyte d etectionOrdered By: Wyatt Amos on 11-14-2024 Stomatocytes LM Ql (Bld) CATEGORY DEVELOPMENT MANAGER [facility] Serum creatinine measurement (mass/volume)Ordered By: Wyatt Amos on 11-14-2024 Creatinine [Mass/Vol] 1.31 mg/dL High 0.70-1.20 [facility] Serum globulin measurementOr dered By: Wyatt Amos on 11-14-2024 Globulin (S) [Mass/Vol] 3.2 g/dL 2.2-4.2 [facility] Serum glucose measurement (m ass/volume)Ordered By: Wyatt Amos on 11-14-2024 Glucose [Mass/Vol] 117 mg/dL High 70-99 [facility] Serum or plasma alanine ob[place] otransferase (ALT) measurementOrdered By: Wyatt Amos on 11-14-2024 ALT [Catalytic activity/Vol] 19 U/L <35 [facility] Serum or plasma albumin dane urement (mass/volume)Ordered By: Wyatt Mariscal on 11-14-2024 Albumin [Mass/Vol] 4.2 g/dL 3.4-4.8 [facility] Serum or plasma albumin/glob ulin mass ratioOrdered By: Wyatt Amos on 11-14-2024 Albumin/Globulin [Mass ratio] 1.3 {ratio} 0.9-2.4 [facility] Serum or plasma alkaline ruddy sphatase measurementOrdered By: Wyatt Amos on 11-14-2024 ALP [Catalytic activity/Vol] 79 U/L 35-104 [facility] Serum or plasma calcium dane urement (mass/volume)Ordered By: Waytt Mariscal on 11-14-2024 Calcium [Mass/Vol] 9.7 mg/dL 7.6-11.0 [facility] Serum or plasma urea nitroge n measurement (mass/volume)Ordered By: Wyatt Amos on 11-14-2024 Urea nitrogen [Mass/Vol] 17 mg/dL 4-19 [facility] Sodium levelOrdered By: Nathanael Amos on 11-14-2024 Sodium [Moles/Vol] 140 mmol/L 133-145 [facility] Squamous epithelial cells de tection in urine sediment by light microscopyOrdered By: Wyatt Amos on 11-14-2024 Epithelial cells.squamous LM Ql (Urine sed) 0-5 SEEN /hpf 5-10 [facility] Teardrop cell detectionOrder ed By: Wyatt Amos on 11-14-2024 Dacrocytes LM Ql (Bld) CATEGORY DEVELOPMENT MANAGER [facility] Total cell countOrdered By: Wyatt Amos on 11-14-2024 Cells counted Molgen (Bld/Tiss) [#] CATEGORY DEVELOPMENT MANAGER [facility] Total proteinOrdered By: Arron Amos on 11-14-2024 Protein [Mass/Vol] 7.4 g/dL 5.9-8.4 [facility] Toxic leukocyte granulation detectionOrdered By: Wyatt Amos on 11-14-2024 Toxic granules LM Ql (Bld) CATEGORY DEVELOPMENT MANAGER [facility] Urinalysis, Completeon 11-14 EPI,SQUAMOUS 0-5 SEEN Normal 5-10 [facility] Comment on above: Order Comment: BRUCE CTOR TO SPECIFY Performed By: #### L 400.0001, L5.0 ####[facility] [address] [place], [address] BACTERIA 0 SEEN Normal None Seen [facility] Comment on above: Order Comment: BRUCE CTOR TO SPECIFY Performed By: #### L 400.0001, L5.0 ####[facility] [address] [place], [address] Mucus Ql (Urine sed) 0 SEEN Normal [facility] Comment on above: Order Comment: BRUCE CTOR TO SPECIFY Performed By: #### L 400.0001, L5.0 ####[facility] [address] [place], [address] RBC 0 SEEN Normal 0-5 [facility] Comment on above: Order Comment: BRUCE CTOR TO SPECIFY Performed By: #### L 400.0001, L50 ####[facility] [address] [place], [address] WBC 0 SEEN Normal 0-5 [facility] Comment on above: Order Comment: BRUCE CTOR TO SPECIFY Performed By: #### L 400.0001, L5 ####[facility] [address] [place], [address] Urine clarityOrdered By: Arron Amos on 11-14-2024 Clarity (U) Clear Clear [facility] Urine color determinationOrd ered By: Wyatt Amos on 11-14-2024 Color (U) Yellow Yellow [facility] Urine glucose detectionOrder ed By: Wyatt Amos on 11-14-2024 Glucose Ql (U) Normal mg/dl Normal [facility] Urine leukocyte esterase det ection by dipstickOrdered By: Wyatt Amos on 11-14-2024 Leukocyte esterase Test strip Ql (U) Negative Negative [facility] Urine pHOrdered By: Wyatt Posada on 11-14-2024 pH (U) 6.0 [pH] 5.0 - 8.0 [facility] Urine protein measurement (m ass/volume)Ordered By: Wyatt Amos on 11-14-2024 Protein (U) [Mass/Vol] 6.9 mg/dL 0.0-12.0 [facility] Urine sediment bacteria coun t by microscopy (number/high power field)Ordered By: Wyatt Amos on 11-14-2024 Bacteria LM.HPF (Urine sed) [#/Area] 0 /[HPF] None Seen [facility] Urine specific gravity measu rementOrdered By: Wyatt Amos on 11-14-2024 Specific gravity (U) [Rel density] 1.015 1.002-1.030 [facility] Urine urobilinogen measureme ntOrdered By: Wyatt Amos on 11-14-2024 Urobilinogen Ql (U) Normal mg/dl Normal [facility] White blood cell (WBC) count Ordered By: Wyatt Amos on 11-14-2024 WBC (Bld) [#/Vol] 8.8 10*3/uL 4.4-11.0 [facility] White blood cell countOrdere d By: Wyatt Amos on 11-14-2024 White blood cell count 0 SEEN /hpf 0-5 [facility] Whole blood erythrocyte morp hology identificationOrdered By: Wyatt Mariscal on 11-14-2024 RBC morphology finding Nom (Bld) CATEGORY DEVELOPMENT MANAGER [facility] Whole blood hypersegmented n eutrophils detection by light microscopyOrdered By: Wyatt Amos on 11-14-2024 Neutrophils.hypersegment ed LM Ql (Bld) CATEGORY DEVELOPMENT MANAGER [facility] Whole blood ovalocyte detect ion by light microscopyOrdered By: [facility] on 11-14-2024 Ovalocytes LM Ql (Bld) CATEGORY DEVELOPMENT MANAGER [facility] Whole blood smudge cell dete ction by light microscopyOrdered By: [facility] on 11-14-2024 Smudge cells LM Ql (Bld) CATEGORY DEVELOPMENT MANAGER [facility] Whole blood target cell dete ction by light microscopyOrdered By: [facility] Hospital[facility] Mariscal on 11-14-2024 Target cells LM Ql (Bld) CATEGORY DEVELOPMENT MANAGER [facility] Urine Cultureon 11-13-2024 URC Culture exhibits no growth. Normal [facility] Comment on above: Performed By: #### M 100.2200, L400.0001 ####[facility] [address] [place], [place], [id number] Absolute lymphocyte countOrd ered By: Randy Cabrales on 11-12-2024 Lymphocytes Auto (Unsp spec) [#/Vol] 2.81 10*3/uL 0.83-4.51 [facility] Anion gap in Serum or Plasma Ordered By: Randy Cabrales on 11-12-2024 Anion gap [Moles/Vol] 11 mmol/L 5-15 [facility] Automated lymphocyte count a s percentage of total leukocytesOrdered By: Randy Cabrales on 11-12-2024 Lymphocytes/100 WBC Auto (Unsp spec) 24.2 % 19-41 [facility] BUN/creatinine ratioOrdered By: Randy Cabrales on 11-12-2024 Urea nitrogen/Creatinine [Mass ratio] 12.8 mg/mg 10- [facility] Basic Metabolic Profile (BMP )on 11-12-2024 BUN/CRE 12.8 RATIO Normal - [facility] Comment on above: Performed By: #### L 500.2500, L100.0100 ####[facility] [address] [place], [place], [id number] Calcium [Mass/Vol] 9.4 mg/dL Normal 7.6-11.0 [facility] Comment on above: Performed By: #### L 500.2500, L100.0100 ####[facility] [address] [place], [address] Chloride [Moles/Vol] 105 mmol/L Normal 98-108 [facility] Comment on above: Performed By: #### L 500.2500, L100.0100 ####[facility] [address] [place], [address] CO2 [Moles/Vol] 23.7 mmol/L Normal 21.0-32.0 [facility] Comment on above: Performed By: #### L 500.2500, L100.0100 ####[facility] [address] [place], [address] Creatinine [Mass/Vol] 1.26 mg/dL High 0.70-1.20 [facility] Comment on above: Performed By: #### L 500.2500, L100.0100 ####[facility] [address] [place], [address] ECRCL 56.64 ml/min Normal 50-250 [facility] Comment on above: Performed By: #### L 500.2500, L100.0100 ####[facility] [address] [place], [address] GAP 11 Normal 5-15 [facility] Comment on above: Performed By: #### L 500.2500, L100.0100 ####[facility] [address] [place], [address] GFR/1.73 sq M.predicted among non-blacks MDRD (S/P/Bld) [Vol rate/Area] 48 mL/min/{1.73_m2} Low >60 [facility] Comment on above: Result Comment: mL/m in/1.73m2 CKD-EPI Creatinine Equation (2020) Performed By: #### L 500.2500, L100.0100 ####[facility] [address] [place], [address] Glucose [Mass/Vol] 136 mg/dL High 70-99 [facility] Comment on above: Performed By: #### L 500.2500, L100.0100 ####[facility] [address] [place], [address] Potassium [Moles/Vol] 3.8 mmol/L Normal 3.3-5.1 [facility] Comment on above: Performed By: #### L 500.2500, L100.0100 ####[facility] [address] [place], [address] Sodium [Moles/Vol] 140 mmol/L Normal 133-145 [facility] Comment on above: Performed By: #### L 500.2500, L100.0100 ####[facility] [address] [place], [address] Urea nitrogen [Mass/Vol] 16 mg/dL Normal 4-19 [facility] Comment on above: Performed By: #### L 500.2500, L100.0100 ####[facility] [address] [place], [address] Basophil percentageOrdered B y: Randy Cabrales on 11-12-2024 Basophils/100 WBC (Bld) 0.4 % 0-1 [facility] Bilirubin Test strip Ql (U)O rdered By: Randy Cabrales on 11-12-2024 Bilirubin Ql (U) Negative Negative [facility] CBC W/Diff, Automatedon - Absolute Lymph 2.81 X10 3/uL Normal 0.83-4.51 [facility] Comment on above: Performed By: #### L 500.2500, L100.0100 ####[facility] [address] [place], [address] Absolute Neut 7.5 X10 3/uL Normal 2.0-7.7 [facility] Comment on above: Performed By: #### L 500.2500, L100.0100 ####[facility] [address] [place], [address] Basophils/100 WBC (Bld) 0.4 % Normal 0-1 [facility] Comment on above: Performed By: #### L 500.2500, L100.0100 ####[facility] [address] [place], [address] Eosinophils/100 WBC (Bld) 2.8 % Normal 0-5 [facility] Comment on above: Performed By: #### L 500.2500, L100.0100 ####[facility] [address] [place], [address] Erythrocyte distribution width (RBC) [Ratio] 13.4 % Normal 11.6-14.6 [facility] Comment on above: Performed By: #### L 500.2500, L100.0100 ####[facility] [address] [place], [address] Hematocrit (Bld) [Volume fraction] 42.0 % Normal 37-47 [facility] Comment on above: Performed By: #### L 500.2500, L100.0100 ####[facility] [address] [place], [address] Hemoglobin (Bld) [Mass/Vol] 13.6 g/dL Normal 12.0-15.0 [facility] Comment on above: Performed By: #### L 500.2500, L100.0100 ####[facility] [address] [place], [address] IG% 0.300 Normal 0.0-0.9 [facility] Comment on above: Result Comment: IG% - Immature Granulocytes (promyelocytes, myelocytes andmetamyelocytes) > 1% indicates that a LEFT SHIFT is Present. Performed By: #### L 500.2500, L100.0100 ####[facility] [address] [place], [address] Lymphocytes/100 WBC (Bld) 24.2 % Normal 19-41 [facility] Comment on above: Performed By: #### L 500.2500, L100.0100 ####[facility] [address] [place], [address] MCH (RBC) [Entitic mass] 30.7 pg Normal 27.0-32.0 [facility] Comment on above: Performed By: #### L 500.2500, L100.0100 ####[facility] [address] [place], [address] MCHC (RBC) [Mass/Vol] 32.4 g/dL Normal 32-36 [facility] Comment on above: Performed By: #### L 500.2500, L100.0100 ####[facility] [address] [place], [address] MCV (RBC) [Entitic vol] 94.8 fL Normal 81-99 [facility] Comment on above: Performed By: #### L 500.2500, L100.0100 ####[facility] [address] [place], [address] Monocytes/100 WBC (Bld) 7.9 % Normal 0-10 [facility] Comment on above: Performed By: #### L 500.2500, L100.0100 ####[facility] [address] [place], [address] Neutrophils/100 WBC (Bld) 64.4 % Normal 47-70 [facility] Comment on above: Performed By: #### L 500.2500, L100.0100 ####[facility] [address] [place], [address] Nucleated RBC (Bld) [#/Vol] 0 10*3/uL Normal 0-5 [facility] Comment on above: Performed By: #### L 500.2500, L100.0100 ####[facility] [address] [place], [address] Platelet mean volume (Bld) [Entitic vol] 10.2 fL Normal 6.2-12.0 [facility] Comment on above: Performed By: #### L 500.2500, L100.0100 ####[facility] [address] [place], [address] Platelets (Bld) [#/Vol] 325 10*3/uL Normal 150-450 [facility] Comment on above: Performed By: #### L 500.2500, L100.0100 ####[facility] [address] [place], [address] RBC (Bld) [#/Vol] 4.43 10*6/uL Normal 4.2-5.4 [facility] Comment on above: Performed By: #### L 500.2500, L100.0100 ####[facility] [address] [place], [address] RDW SD 47.3 fl High 35.1-43.9 [facility] Comment on above: Performed By: #### L 500.2500, L100.0100 ####[facility] [address] [place], [address] WBC (Bld) [#/Vol] 11.6 10*3/uL High 4.4-11.0 [facility] Comment on above: Performed By: #### L 500.2500, L100.0100 ####[facility] [address] [place], [address] Carbon dioxide, total [Moles /volume] in Central venous bloodOrdered By: Randy Cabrales on 11-12-2024 CO2 [Moles/Vol] 23.7 mmol/L 21.0-32.0 [facility] Chloride assayOrdered By: Garry Cabrales on 11-12-2024 Chloride [Moles/Vol] 105 mmol/L 98-108 [facility] Emergency Department Summary on 11-12-2024 Emergency Department Summary Normal [facility] Eosinophil percentageOrdered By: Randy Cabrales on 11-12-2024 Eosinophils/100 WBC (Bld) 2.8 % 0-5 [facility] Erythrocyte distribution wid th ratioOrdered By: Randy Cabrales on 11-12-2024 Erythrocyte distribution width (RBC) [Ratio] 13.4 % 11.6-14.6 [facility] Erythrocyte distribution wid th standard deviationOrdered By: Randy Cabrales on 11-12-2024 Erythrocyte distribution width (RBC) [Ratio] 47.3 fl High 35.1-43.9 [facility] Glomerular filtration rate ( GFR) estimation/1.73 sq m using serum, plasma, or whole bOrdered By: Randy Cabrales on 11-12-2024 GFR/1.73 sq M.predicted among non-blacks MDRD (S/P/Bld) [Vol rate/Area] 48 mL/min/{1.73_m2} Low >60 [facility] Hematocrit Auto (Bld) [Volum e fraction]Ordered By: Randy Cabrales on 11-12-2024 Hematocrit (Bld) [Volume fraction] 42.0 % 37-47 [facility] Hemoglobin measurementOrdere d By: Randy Cabrales on 11-12-2024 Hemoglobin (Bld) [Mass/Vol] 13.6 g/dL 12.0-15.0 [facility] Immature granulocytes/100 WB C Auto (Bld)Ordered By: Randy Cabrales on 11-12-2024 Immature granulocytes/100 WBC (Bld) 0.300 % 0.0-0.9 [facility] Ketones Test strip Ql (U)Ord ered By: Randy Cabrales on 11-12-2024 Ketones Ql (U) Negative Negative [facility] MCV (mean corpuscular volume ) determinationOrdered By: Randy Cabrales on 11-12-2024 MCV (RBC) [Entitic vol] 94.8 fL 81-99 [facility] Mean corpuscular hemoglobin (MCH) determinationOrdered By: Randy Cabrales on 11-12-2024 MCH (RBC) [Entitic mass] 30.7 pg 27.0-32.0 [facility] Monocyte percentageOrdered B y: Randy Cabrales on 11-12-2024 Monocytes/100 WBC (Bld) 7.9 % 0-10 [facility] Mucus LM Ql (Urine sed)Order ed By: Randy Cabrales on 11-12-2024 Mucus Ql (Urine sed) 0 SEEN /hpf [facility] Neutrophil percentageOrdered By: Randy Cabrales on 11-12-2024 Neutrophils/100 WBC (Bld) 64.4 % 47-70 [facility] Nitrite Test strip Ql (U)Ord ered By: Randy Cabrales on 11-12-2024 Nitrite Ql (U) Negative Negative [facility] Platelet countOrdered By: Garry Cabrales on 11-12-2024 Platelets (Bld) [#/Vol] 325 10*3/uL 150-450 [facility] Potassium measurement (mass/ volume)Ordered By: Randy Cabrales on 11-12-2024 Potassium (Unsp spec) [Mass/Vol] 3.8 mmol/L 3.3-5.1 [facility] Protein Test strip Ql (U)Ord ered By: Randy Cabrales on 11-12-2024 Protein Ql (U) 30 mg/dl High Negative [facility] RBC Auto (Bld) [#/Vol]Ordere d By: Randy Cabrales on 11-12-2024 RBC (Bld) [#/Vol] 4.43 10*6/uL 4.2-5.4 [facility] Serum creatinine measurement (mass/volume)Ordered By: Randy Cabrales on 11-12-2024 Creatinine [Mass/Vol] 1.26 mg/dL High 0.70-1.20 [facility] Serum glucose measurement (m ass/volume)Ordered By: Randy Cabrales on 11-12-2024 Glucose [Mass/Vol] 136 mg/dL High 70-99 [facility] Serum or plasma calcium dane urement (mass/volume)Ordered By: Randy Cabrales on 11-12-2024 Calcium [Mass/Vol] 9.4 mg/dL 7.6-11.0 [facility] Serum or plasma urea nitroge n measurement (mass/volume)Ordered By: Randy Cabrales on 11-12-2024 Urea nitrogen [Mass/Vol] 16 mg/dL 4-19 [facility] Sodium levelOrdered By: Randy Cabrales on 11-12-2024 Sodium [Moles/Vol] 140 mmol/L 133-145 [facility] Squamous epithelial cells de tection in urine sediment by light microscopyOrdered By: Randy Cabrales on 11-12-2024 Epithelial cells.squamous LM Ql (Urine sed) 0 SEEN /hpf - [facility] Urinalysis, Completeon 11-12 BACTERIA 0 SEEN Normal None Seen [facility] Comment on above: Order Comment: BRUCE CTOR TO SPECIFY Performed By: #### M 100.2200, L400.0001 ####[facility] [address] [place], [address] EPI,SQUAMOUS 0 SEEN Normal - [facility] Comment on above: Order Comment: BRUCE CTOR TO SPECIFY Performed By: #### M 100.2200, L400.0001 ####[facility] [address] [place], [address] Mucus Ql (Urine sed) 0 SEEN Normal [facility] Comment on above: Order Comment: BRUCE CTOR TO SPECIFY Performed By: #### M 100.2200, L400.0001 ####[facility] [address] [place], [address] RBC 0 SEEN Normal 0-5 [facility] Comment on above: Order Comment: BRUCE CTOR TO SPECIFY Performed By: #### M 100.2200, L400.0001 ####[facility] [address] [place], [address] WBC 0 SEEN Normal 0-5 [facility] Comment on above: Order Comment: BRUCE CTOR TO SPECIFY Performed By: #### M 100.2200, L400.0001 ####[facility] [address] [place], [address] Urine clarityOrdered By: Barrett Cabrales on 11-12-2024 Clarity (U) Clear Clear [facility] Urine color determinationOrd ered By: Randy Cabrales on 11-12-2024 Color (U) Yellow Yellow [facility] Urine cultureOrdered By: Barrett Cabrales on 11-12-2024 Bacteria identified Cx Nom (U) Culture exhibits no growth. [facility] Urine glucose detectionOrder ed By: Randy Cabrales on 11-12-2024 Glucose Ql (U) Normal mg/dl Normal [facility] Urine leukocyte esterase det ection by dipstickOrdered By: Randy Cabrales on 11-12-2024 Leukocyte esterase Test strip Ql (U) Negative Negative [facility] Urine pHOrdered By: Randy gale on 11-12-2024 pH (U) 5.0 [pH] 5.0 - 8.0 [facility] Urine sediment bacteria coun t by microscopy (number/high power field)Ordered By: Randy Cabrales on 11-12-2024 Bacteria LM.HPF (Urine sed) [#/Area] 0 /[HPF] None Seen [facility] Urine specific gravity measu rementOrdered By: Randy Cabrales on 11-12-2024 Specific gravity (U) [Rel density] 1.020 1.002-1.030 [facility] Urine urobilinogen measureme ntOrdered By: Randy Cabrales on 11-12-2024 Urobilinogen Ql (U) Normal mg/dl Normal [facility] White blood cell (WBC) count Ordered By: Randy Cabrales on 11-12-2024 WBC (Bld) [#/Vol] 11.6 10*3/uL High 4.4-11.0 [facility] White blood cell countOrdere d By: Randy Cabrales on 11-12-2024 White blood cell count 0 SEEN /hpf 0-5 [facility] Culture, Blood (WB)on 2024 CUB Blood cultures x2, from two different sites No growth in 5 days. Normal [facility] Comment on above: Performed By: #### M 200.1000 ####[facility] [address] [place], [address] Bedside Glucoseon 11-07-2024 FINGERSTICK GLU 118 mg/dL High 74-106 [facility] Comment on above: Result Comment: BJ GEMENT OF PATIENT CARE PER NURSING PROTOCOL Performed By: #### L 501.080 ####[facility] [address] [facility] [address] FINGERSTICK GLU 117 mg/dL High 74-106 [facility] Comment on above: Result Comment: BJ GEMENT OF PATIENT CARE PER NURSING PROTOCOL Performed By: #### L 501.080 ####[facility] [address] [facility] [address] FINGERSTICK GLU 100 mg/dL Normal 74-106 [facility] Comment on above: Result Comment: BJ GEMENT OF PATIENT CARE PER NURSING PROTOCOL Performed By: #### L 501.080 ####[facility] [address] [facility] [address] Discharge Instructionon 10-17 Discharge Instruction Normal [facility] Glucose measurement at [facility] deOrdered By: Azam Guillen on 11-07-2024 Glucose [Mass/Vol] 118 mg/dL High 74-106 [facility] Bedside Glucoseon 11-06-2024 FINGERSTICK GLU 99 mg/dL Normal 74-106 [facility] Comment on above: Result Comment: BJ GEMENT OF PATIENT CARE PER NURSING PROTOCOL Performed By: #### L 501.080 ####[facility] [address] [facility] [address] FINGERSTICK GLU 110 mg/dL High 74-106 [facility] Comment on above: Result Comment: BJ GEMENT OF PATIENT CARE PER NURSING PROTOCOL Performed By: #### L 501.080 ####[facility] [address] [facility] [address] FINGERSTICK GLU 124 mg/dL High 74-106 [facility] Comment on above: Result Comment: BJ GEMENT OF PATIENT CARE PER NURSING PROTOCOL Performed By: #### L 501.080 ####[facility] [address] [place], [address] FINGERSTICK GLU 104 mg/dL Normal 74-106 [facility] Comment on above: Result Comment: BJ GEMENT OF PATIENT CARE PER NURSING PROTOCOL Performed By: #### L 501.080 ####[facility] [address] [place], [address] Urine Cultureon 11-06-2024 URC Normal [facility] Comment on above: Performed By: #### M 100.2200 ####[facility] [address] [place], [address] Absolute lymphocyte countOrd ered By: Lauren Vela on 11-05-2024 Lymphocytes Auto (Unsp spec) [#/Vol] 2.47 10*3/uL 0.83-4.51 [facility] Anion gap in Serum or Plasma Ordered By: Lauren Dane on 11-05-2024 Anion gap [Moles/Vol] 12 mmol/L 5-15 [facility] Automated lymphocyte count a s percentage of total leukocytesOrdered By: Lauren Dane on 11-05-2024 Lymphocytes/100 WBC Auto (Unsp spec) 31.5 % 19-41 [facility] BUN/creatinine ratioOrdered By: [facility] Dane on 11-05-2024 Urea nitrogen/Creatinine [Mass ratio] 10.6 mg/mg 10-20 [facility] Basophil percentageOrdered B y: Lauren Vela on 11-05-2024 Basophils/100 WBC (Bld) 0.3 % 0-1 [facility] Bedside Glucoseon 11-05-2024 FINGERSTICK GLU 101 mg/dL Normal 74-106 [facility] Comment on above: Result Comment: BJ GEMENT OF PATIENT CARE PER NURSING PROTOCOL Performed By: #### L 501.080 ####[facility] [address] [place], [address] FINGERSTICK GLU 111 mg/dL High 74-106 [facility] Comment on above: Result Comment: BJ GEMENT OF PATIENT CARE PER NURSING PROTOCOL Performed By: #### L 501.080 ####[facility] [address] [place], [address] FINGERSTICK GLU 120 mg/dL High 74-106 [facility] Comment on above: Result Comment: BJ GEMENT OF PATIENT CARE PER NURSING PROTOCOL Performed By: #### L 501.080 ####[facility] [address] [place], [address] FINGERSTICK GLU 103 mg/dL Normal 74-106 [facility] Comment on above: Result Comment: BJ GEMENT OF PATIENT CARE PER NURSING PROTOCOL Performed By: #### L 501.080 ####[facility] [address] [place], [address] Bilirubin, totalOrdered By: Lauren Vela on 11-05-2024 Bilirubin [Mass/Vol] 0.73 mg/dL 0.00-1.30 [facility] CBC W/Diff, Automatedon 10-17 Absolute Lymph 2.47 X10 3/uL Normal 0.83-4.51 [facility] Comment on above: Performed By: #### L 501.9985, L500.4050, L100.0100 ####[facility] [address] [place], [address] Absolute Neut 4.3 X10 3/uL Normal 2.0-7.7 [facility] Comment on above: Performed By: #### L 501.9985, L500.4050, L100.0100 ####[facility] [address] [place], [address] Basophils/100 WBC (Bld) 0.3 % Normal 0-1 [facility] Comment on above: Performed By: #### L 501.9985, L500.4050, L100.0100 ####[facility] [address] [place], [address] Eosinophils/100 WBC (Bld) 4.9 % Normal 0-5 [facility] Comment on above: Performed By: #### L 501.9985, L500.4050, L100.0100 ####[facility] [address] [place], [address] Erythrocyte distribution width (RBC) [Ratio] 13.3 % Normal 11.6-14.6 [facility] Comment on above: Performed By: #### L 501.9985, L500.4050, L100.0100 ####[facility] [address] [place], [address] Hematocrit (Bld) [Volume fraction] 38.7 % Normal 37-47 [facility] Comment on above: Performed By: #### L 501.9985, L500.4050, L100.0100 ####[facility] [address] [place], [address] Hemoglobin (Bld) [Mass/Vol] 12.4 g/dL Normal 12.0-15.0 [facility] Comment on above: Performed By: #### L 501.9985, L500.4050, L100.0100 ####[facility] [address] [place], [address] IG% 0.300 Normal 0.0-0.9 [facility] Comment on above: Result Comment: IG% - Immature Granulocytes (promyelocytes, myelocytes andmetamyelocytes) > 1% indicates that a LEFT SHIFT is Present. Performed By: #### L 501.9985, L500.4050, L100.0100 ####[facility] [address] [place], [address] Lymphocytes/100 WBC (Bld) 31.5 % Normal 19-41 [facility] Comment on above: Performed By: #### L 501.9985, L500.4050, L100.0100 ####[facility] [address] [place], [address] MCH (RBC) [Entitic mass] 30.7 pg Normal 27.0-32.0 [facility] Comment on above: Performed By: #### L 501.9985, L500.4050, L100.0100 ####[facility] [address] [place], [address] MCHC (RBC) [Mass/Vol] 32.0 g/dL Normal 32-36 [facility] Comment on above: Performed By: #### L 501.9985, L500.4050, L100.0100 ####[facility] [address] [place], [address] MCV (RBC) [Entitic vol] 95.8 fL Normal 81-99 [facility] Comment on above: Performed By: #### L 501.9985, L500.4050, L100.0100 ####[facility] [address] [place], [address] Monocytes/100 WBC (Bld) 8.8 % Normal 0-10 [facility] Comment on above: Performed By: #### L 501.9985, L500.4050, L100.0100 ####[facility] [address] [place], [address] Neutrophils/100 WBC (Bld) 54.2 % Normal 47-70 [facility] Comment on above: Performed By: #### L 501.9985, L500.4050, L100.0100 ####[facility] [address] [place], [address] Nucleated RBC (Bld) [#/Vol] 0 10*3/uL Normal 0-5 [facility] Comment on above: Performed By: #### L 501.9985, L500.4050, L100.0100 ####[facility] [address] [place], [address] Platelet mean volume (Bld) [Entitic vol] 10.8 fL Normal 6.2-12.0 [facility] Comment on above: Performed By: #### L 501.9985, L500.4050, L100.0100 ####[facility] [address] [place], [address] Platelets (Bld) [#/Vol] 243 10*3/uL Normal 150-450 [facility] Comment on above: Performed By: #### L 501.9985, L500.4050, L100.0100 ####[facility] [address] [place], [address] RBC (Bld) [#/Vol] 4.04 10*6/uL Low 4.2-5.4 [facility] Comment on above: Performed By: #### L 501.9985, L500.4050, L100.0100 ####[facility] [address] [place], [address] RDW SD 47.1 fl High 35.1-43.9 [facility] Comment on above: Performed By: #### L 501.9985, L500.4050, L100.0100 ####[facility] [address] [place], [address] WBC (Bld) [#/Vol] 7.8 10*3/uL Normal 4.4-11.0 [facility] Comment on above: Performed By: #### L 501.9985, L500.4050, L100.0100 ####[facility] [address] [place], [address] Carbon dioxide, total [Moles /volume] in Central venous bloodOrdered By: Lauren Vela on 11-05-2024 CO2 [Moles/Vol] 21.1 mmol/L 21.0-32.0 [facility] Chloride assayOrdered By: Nano Vela on 11-05-2024 Chloride [Moles/Vol] 107 mmol/L 98-108 [facility] Comprehensive Metabolic Prof ilon 11-05-2024 Albumin [Mass/Vol] 3.3 g/dL Low 3.4-4.8 [facility] Comment on above: Performed By: #### L 501.9985, L500.4050, L100.0100 ####[facility] [address] [place], [address] Albumin/Globulin [Mass ratio] 1.2 {ratio} Normal 0.9-2.4 [facility] Comment on above: Performed By: #### L 501.9985, L500.4050, L100.0100 ####[facility] [address] [place], [address] ALK PHOS 65 U/L Normal 35-104 [facility] Comment on above: Performed By: #### L 501.9985, L500.4050, L100.0100 ####[facility] [address] [place], [address] ALT [Catalytic activity/Vol] 12 U/L Normal <=34 [facility] Comment on above: Performed By: #### L 501.9985, L500.4050, L100.0100 ####[facility] [address] [place], [address] AST [Catalytic activity/Vol] 19 U/L Normal <=31 [facility] Comment on above: Performed By: #### L 501.9985, L500.4050, L100.0100 ####[facility] [address] [place], [address] Bilirubin [Mass/Vol] 0.73 mg/dL Normal 0.00-1.30 [facility] Comment on above: Performed By: #### L 501.9985, L500.4050, L100.0100 ####[facility] [address] [place], [address] BUN/CRE 10.6 RATIO Normal 10-20 [facility] Comment on above: Performed By: #### L 501.9985, L500.4050, L100.0100 ####[facility] [address] [place], [address] Calcium [Mass/Vol] 8.7 mg/dL Normal 7.6-11.0 [facility] Comment on above: Performed By: #### L 501.9985, L500.4050, L100.0100 ####[facility] [address] [place], [address] Chloride [Moles/Vol] 107 mmol/L Normal 98-108 [facility] Comment on above: Performed By: #### L 501.9985, L500.4050, L100.0100 ####[facility] [address] [place], [address] CO2 [Moles/Vol] 21.1 mmol/L Normal 21.0-32.0 [facility] Comment on above: Performed By: #### L 501.9985, L500.4050, L100.0100 ####[facility] [address] [place], [address] Creatinine [Mass/Vol] 1.37 mg/dL High 0.70-1.20 [facility] Comment on above: Performed By: #### L 501.9985, L500.4050, L100.0100 ####[facility] [address] [place], [address] ECRCL 50.91 ml/min Normal 50-250 [facility] Comment on above: Performed By: #### L 501.9985, L500.4050, L100.0100 ####[facility] [address] [place], [address] GAP 12 Normal 5-15 [facility] Comment on above: Performed By: #### L 501.9985, L500.4050, L100.0100 ####[facility] [address] [place], [address] GFR/1.73 sq M.predicted among non-blacks MDRD (S/P/Bld) [Vol rate/Area] 44 mL/min/{1.73_m2} Low >60 [facility] Comment on above: Result Comment: mL/m in/1.73m2 CKD-EPI Creatinine Equation (2020) Performed By: #### L 501.9985, L500.4050, L100.0100 ####[facility] [address] [place], [address] Globulin (S) [Mass/Vol] 2.7 g/dL Normal 2.2-4.2 [facility] Comment on above: Performed By: #### L 501.9985, L500.4050, L100.0100 ####[facility] [address] [place], [address] Glucose [Mass/Vol] 96 mg/dL Normal 70-99 [facility] Comment on above: Performed By: #### L 501.9985, L500.4050, L100.0100 ####[facility] [address] [place], [address] Potassium [Moles/Vol] 3.4 mmol/L Normal 3.3-5.1 [facility] Comment on above: Performed By: #### L 501.9985, L500.4050, L100.0100 ####[facility] [address] [place], [address] Sodium [Moles/Vol] 140 mmol/L Normal 133-145 [facility] Comment on above: Performed By: #### L 501.9985, L500.4050, L100.0100 ####[facility] [address] [place], [address] T PROT 6.0 g/dL Normal 5.9-8.4 [facility] Comment on above: Performed By: #### L 501.9985, L500.4050, L100.0100 ####[facility] [address] [place], [place], [id number] Urea nitrogen [Mass/Vol] 15 mg/dL Normal 4-19 [facility] Comment on above: Performed By: #### L 501.9985, L500.4050, L100.0100 ####[facility] [address] [place], [place], [id number] Eosinophil percentageOrdered By: Lauren Dane on 11-05-2024 Eosinophils/100 WBC (Bld) 4.9 % 0-5 [facility] Erythrocyte distribution wid th ratioOrdered By: [facility] Dane on 11-05-2024 Erythrocyte distribution width (RBC) [Ratio] 13.3 % 11.6-14.6 [facility] Erythrocyte distribution wid th standard deviationOrdered By: [facility] Dane on 11-05-2024 Erythrocyte distribution width (RBC) [Ratio] 47.1 fl High 35.1-43.9 [facility] Glomerular filtration rate ( GFR) estimation/1.73 sq m using serum, plasma, or whole bOrdered By: [facility] Dane on 11-05-2024 GFR/1.73 sq M.predicted among non-blacks MDRD (S/P/Bld) [Vol rate/Area] 44 mL/min/{1.73_m2} Low >60 [facility] Hematocrit Auto (Bld) [Volum e fraction]Ordered By: Lauren Dane on 11-05-2024 Hematocrit (Bld) [Volume fraction] 38.7 % 37-47 [facility] Hemoglobin A1con 11-05-2024 HbA1c (Bld) [Mass fraction] 6.0 % High <=5.6 [facility] Comment on above: Result Comment: Norm al < 5.7 % Prediabetic 5.7 - 6.4 % Diabetic >or= 6.5 % Please note range changes. Performed By: #### L 501.9985, L500.4050, L100.0100 ####[facility] [address] [place], [address] Hemoglobin A1c percentageOrd ered By: Lauren Dane on 11-05-2024 HbA1c (Bld) [Mass fraction] 6.0 % High <5.7 [facility] Hemoglobin measurementOrdere d By: Dane on 11-05-2024 Hemoglobin (Bld) [Mass/Vol] 12.4 g/dL 12.0-15.0 [facility] Immature granulocytes/100 WB C Auto (Bld)Ordered By: Lauren Dane on 11-05-2024 Immature granulocytes/100 WBC (Bld) 0.300 % 0.0-0.9 [facility] MCV (mean corpuscular volume ) determinationOrdered By: Lauren Dane on 11-05-2024 MCV (RBC) [Entitic vol] 95.8 fL 81-99 [facility] Mean corpuscular hemoglobin (MCH) determinationOrdered By: Dane on 11-05-2024 MCH (RBC) [Entitic mass] 30.7 pg 27.0-32.0 [facility] Monocyte percentageOrdered B y: White on 11-05-2024 Monocytes/100 WBC (Bld) 8.8 % 0-10 [facility] Neutrophil percentageOrdered By: on 11-05-2024 Neutrophils/100 WBC (Bld) 54.2 % 47-70 [facility] No Panel InformationOrdered By: Lauren Dane on 11-05-2024 19 U/L <32 [facility] Platelet countOrdered By: Nano dianaandres Vela on 11-05-2024 Platelets (Bld) [#/Vol] 243 10*3/uL 150-450 [facility] Potassium measurement (mass/ volume)Ordered By: Dane on 11-05-2024 Potassium (Unsp spec) [Mass/Vol] 3.4 mmol/L 3.3-5.1 [facility] RBC Auto (Bld) [#/Vol]Ordere d By: Lauren White on 11-05-2024 RBC (Bld) [#/Vol] 4.04 10*6/uL Low 4.2-5.4 [facility] Serum creatinine measurement (mass/volume)Ordered By: Lauren Vela on 11-05-2024 Creatinine [Mass/Vol] 1.37 mg/dL High 0.70-1.20 [facility] Serum globulin measurementOr dered By: Lauren Vela on 11-05-2024 Globulin (S) [Mass/Vol] 2.7 g/dL 2.2-4.2 [facility] Serum glucose measurement (m ass/volume)Ordered By: Lauren Vela on 11-05-2024 Glucose [Mass/Vol] 96 mg/dL 70-99 [facility] Serum or plasma alanine obregon otransferase (ALT) measurementOrdered By: Lauren Vela on 11-05-2024 ALT [Catalytic activity/Vol] 12 U/L <35 [facility] Serum or plasma albumin dane urement (mass/volume)Ordered By: Lauren Vela on 11-05-2024 Albumin [Mass/Vol] 3.3 g/dL Low 3.4-4.8 [facility] Serum or plasma albumin/glob ulin mass ratioOrdered By: Lauren Vela on 11-05-2024 Albumin/Globulin [Mass ratio] 1.2 {ratio} 0.9-2.4 [facility] Serum or plasma alkaline ruddy sphatase measurementOrdered By: Lauren Vela on 11-05-2024 ALP [Catalytic activity/Vol] 65 U/L 35-104 [facility] Serum or plasma calcium dane urement (mass/volume)Ordered By: Lauren Vela on 11-05-2024 Calcium [Mass/Vol] 8.7 mg/dL 7.6-11.0 [facility] Serum or plasma urea nitroge n measurement (mass/volume)Ordered By: Lauren Vela on 11-05-2024 Urea nitrogen [Mass/Vol] 15 mg/dL 4-19 [facility] Sodium levelOrdered By: Autu mn Dane on 11-05-2024 Sodium [Moles/Vol] 140 mmol/L 133-145 [facility] Total proteinOrdered By: Aut umn Dane on 11-05-2024 Protein [Mass/Vol] 6.0 g/dL 5.9-8.4 [facility] White blood cell (WBC) count Ordered By: Lauren Vela on 11-05-2024 WBC (Bld) [#/Vol] 7.8 10*3/uL 4.4-11.0 [facility] Absolute neutrophil countOrd ered By: Rebecca De Santiago on 11-04-2024 Neutrophils (Bld) [#/Vol] 6.9 10*3/uL 2.0-7.7 [facility] Anion gap in Serum or Plasma Ordered By: Rebecca De Santiago on 11-04-2024 Anion gap [Moles/Vol] 11 mmol/L 5-15 [facility] BUN/creatinine ratioOrdered By: Rebecca De Santiago on 11-04-2024 Urea nitrogen/Creatinine [Mass ratio] 8.9 mg/mg Low 05-06 [facility] Basic Metabolic Profile (BMP )on 11-04-2024 BUN/CRE 8.9 RATIO Low 05-06 [facility] Comment on above: Performed By: #### L 500.2500, L100.0100 ####[facility] [address] [place], [address] Calcium [Mass/Vol] 9.3 mg/dL Normal 7.6-11.0 [facility] Comment on above: Performed By: #### L 500.2500, L100.0100 ####[facility] [address] [place], [address] Chloride [Moles/Vol] 105 mmol/L Normal 98-108 [facility] Comment on above: Performed By: #### L 500.2500, L100.0100 ####[facility] [address] [place], [address] CO2 [Moles/Vol] 26.2 mmol/L Normal 21.0-32.0 [facility] Comment on above: Performed By: #### L 500.2500, L100.0100 ####[facility] [address] [place], [address] Creatinine [Mass/Vol] 1.48 mg/dL High 0.70-1.20 [facility] Comment on above: Performed By: #### L 500.2500, L100.0100 ####[facility] [address] [place], [address] ECRCL 47.80 ml/min Low 50-250 [facility] Comment on above: Performed By: #### L 500.2500, L100.0100 ####[facility] [address] [place], [address] GAP 11 Normal 5-15 [facility] Comment on above: Performed By: #### L 500.2500, L100.0100 ####[facility] [address] [place], [address] GFR/1.73 sq M.predicted among non-blacks MDRD (S/P/Bld) [Vol rate/Area] 40 mL/min/{1.73_m2} Low >60 [facility] Comment on above: Result Comment: mL/m in/1.73m2 CKD-EPI Creatinine Equation (2020) Performed By: #### L 500.2500, L100.0100 ####[facility] [address] [place], [address] Glucose [Mass/Vol] 117 mg/dL High 70-99 [facility] Comment on above: Performed By: #### L 500.2500, L100.0100 ####[facility] [address] [place], [address] Potassium [Moles/Vol] 3.7 mmol/L Normal 3.3-5.1 [facility] Comment on above: Performed By: #### L 500.2500, L100.0100 ####[facility] [address] [place], [address] Sodium [Moles/Vol] 142 mmol/L Normal 133-145 [facility] Comment on above: Performed By: #### L 500.2500, L100.0100 ####[facility] [address] [place], [address] Urea nitrogen [Mass/Vol] 13 mg/dL Normal 4-19 [facility] Comment on above: Performed By: #### L 500.2500, L100.0100 ####[facility] [address] [place], [address] Basophil percentageOrdered B y: Rebecca De Santiago on 11-04-2024 Basophils/100 WBC (Bld) 0.2 % 0-1 [facility] Bedside Glucoseon 11-04-2024 FINGERSTICK GLU 114 mg/dL High 74-106 [facility] Comment on above: Result Comment: BJ GEMENT OF PATIENT CARE PER NURSING PROTOCOL Performed By: #### L 501.080 ####[facility] [address] [place], [address] FINGERSTICK GLU 94 mg/dL Normal 74-106 [facility] Comment on above: Result Comment: BJ GEMENT OF PATIENT CARE PER NURSING PROTOCOL Performed By: #### L 501.080 ####[facility] [address] [place], [address] Bilirubin Test strip Ql (U)O rdered By: Rebecca De Santiago on 11-04-2024 Bilirubin Ql (U) Negative Negative [facility] Blood cultureOrdered By: Issa Chapin on 11-04-2024 Bacteria identified Cx Nom (Bld) No growth in 5 days. [facility] Bacteria identified Cx Nom (Bld) No growth in 5 days. [facility] CBC W/Diff, Automatedon 10-17 Absolute Lymph 1.90 X10 3/uL Normal 0.83-4.51 [facility] Comment on above: Performed By: #### L 500.2500, L100.0100 ####[facility] [address] [place], [address] Absolute Neut 6.9 X10 3/uL Normal 2.0-7.7 [facility] Comment on above: Performed By: #### L 500.2500, L100.0100 ####[facility] [address] [place], [address] Basophils/100 WBC (Bld) 0.2 % Normal 0-1 [facility] Comment on above: Performed By: #### L 500.2500, L100.0100 ####[facility] [address] [place], [address] Eosinophils/100 WBC (Bld) 2.9 % Normal 0-5 [facility] Comment on above: Performed By: #### L 500.2500, L100.0100 ####[facility] [address] [place], [address] Erythrocyte distribution width (RBC) [Ratio] 13.2 % Normal 11.6-14.6 [facility] Comment on above: Performed By: #### L 500.2500, L100.0100 ####[facility] [address] [place], [address] Hematocrit (Bld) [Volume fraction] 43.9 % Normal 37-47 [facility] Comment on above: Performed By: #### L 500.2500, L100.0100 ####[facility] [address] [place], [address] Hemoglobin (Bld) [Mass/Vol] 14.4 g/dL Normal 12.0-15.0 [facility] Comment on above: Performed By: #### L 500.2500, L100.0100 ####[facility] [address] [place], [address] IG% 0.200 Normal 0.0-0.9 [facility] Comment on above: Result Comment: IG% - Immature Granulocytes (promyelocytes, myelocytes andmetamyelocytes) > 1% indicates that a LEFT SHIFT is Present. Performed By: #### L 500.2500, L100.0100 ####[facility] [address] [place], [address] Lymphocytes/100 WBC (Bld) 19.2 % Normal 19-41 [facility] Comment on above: Performed By: #### L 500.2500, L100.0100 ####[facility] [address] [place], [address] MCH (RBC) [Entitic mass] 31.2 pg Normal 27.0-32.0 [facility] Comment on above: Performed By: #### L 500.2500, L100.0100 ####[facility] [address] [place], [address] MCHC (RBC) [Mass/Vol] 32.8 g/dL Normal 32-36 [facility] Comment on above: Performed By: #### L 500.2500, L100.0100 ####[facility] [address] [place], [address] MCV (RBC) [Entitic vol] 95.0 fL Normal 81-99 [facility] Comment on above: Performed By: #### L 500.2500, L100.0100 ####[facility] [address] [place], [address] Monocytes/100 WBC (Bld) 7.3 % Normal 0-10 [facility] Comment on above: Performed By: #### L 500.2500, L100.0100 ####[facility] [address] [place], [address] Neutrophils/100 WBC (Bld) 70.2 % High 47-70 [facility] Comment on above: Performed By: #### L 500.2500, L100.0100 ####[facility] [address] [place], [address] Nucleated RBC (Bld) [#/Vol] 0 10*3/uL Normal 0-5 [facility] Comment on above: Performed By: #### L 500.2500, L100.0100 ####[facility] [address] [place], [address] Platelet mean volume (Bld) [Entitic vol] 10.3 fL Normal 6.2-12.0 [facility] Comment on above: Performed By: #### L 500.2500, L100.0100 ####[facility] [address] [place], [address] Platelets (Bld) [#/Vol] 261 10*3/uL Normal 150-450 [facility] Comment on above: Performed By: #### L 500.2500, L100.0100 ####[facility] [address] [place], [address] RBC (Bld) [#/Vol] 4.62 10*6/uL Normal 4.2-5.4 [facility] Comment on above: Performed By: #### L 500.2500, L100.0100 ####[facility] [address] [place], [address] RDW SD 46.8 fl High 35.1-43.9 [facility] Comment on above: Performed By: #### L 500.2500, L100.0100 ####[facility] [address] [place], [address] WBC (Bld) [#/Vol] 9.9 10*3/uL Normal 4.4-11.0 [facility] Comment on above: Performed By: #### L 500.2500, L100.0100 ####[facility] [address] [place], [address] Carbon dioxide, total [Moles /volume] in Central venous bloodOrdered By: Rebecca De Santiago on 11-04-2024 CO2 [Moles/Vol] 26.2 mmol/L 21.0-32.0 [facility] Chloride assayOrdered By: Latisha De Santiago on 11-04-2024 Chloride [Moles/Vol] 105 mmol/L 98-108 [facility] Emergency Department Summary on 11-04-2024 Emergency Department Summary Normal [facility] Eosinophil percentageOrdered By: Rebecca De Santiago on 11-04-2024 Eosinophils/100 WBC (Bld) 2.9 % 0-5 [facility] Epithelial cells.squamous LM Ql (Urine sed)Ordered By: Rebecca De Santiago on 11-04-2024 Epithelial cells.squamous LM.HPF (Urine sed) [#/Area] 0 /[HPF] 5-10 [facility] Erythrocyte distribution wid th (RBC) [Ratio]Ordered By: Rebecca De Santiago on 11-04-2024 Erythrocyte distribution width (RBC) [Entitic vol] 46.8 fL High 35.1-43.9 [facility] Erythrocyte distribution wid th ratioOrdered By: Rebecca De Santiago on 11-04-2024 Erythrocyte distribution width (RBC) [Ratio] 13.2 % 11.6-14.6 [facility] Estimation of creatinine julee aranceOrdered By: Rebecca De Santiago on 11-04-2024 Estimated Creatinine Clearance Calc 47.80 ml/min Low 50-250 [facility] GFR/1.73 sq M.predicted yu g non-blacks MDRD (S/P/Bld) [Vol rate/Area]Ordered By: Rebecca De Santiago on 11-04-2024 Estimated GFR (MDRD) Non-Af Amer 40 Low >60 [facility] Comment on above: mL/min/1.73m2 CKD-EP I Creatinine Equation (2020) Glucose Ql (U)Ordered By: Latisha De Santiago on 11-04-2024 Urine Glucose (UA) Normal mg/dl Normal [facility] H AND P Exam - Hospitaliston 11-04-2024 H&P Exam - Hospitalist [facility] Hematocrit Auto (Bld) [Volum e fraction]Ordered By: Rebecca De Santiago on 11-04-2024 Hematocrit (Bld) [Volume fraction] 43.9 % 37-47 [facility] Hemoglobin measurementOrdere d By: Rebecca De Santiago on 11-04-2024 Hemoglobin (Bld) [Mass/Vol] 14.4 g/dL 12.0-15.0 [facility] Immature granulocytes/100 WB C Auto (Bld)Ordered By: Rebecca De Santiago on 11-04-2024 Immature granulocytes/100 WBC (Bld) 0.200 % 0.0-0.9 [facility] Comment on above: IG% - Immature Granu locytes (promyelocytes, myelocytes and metamyelocytes) > 1% indicates that a LEFT SHIFT is Present. Ketones Test strip Ql (U)Ord ered By: Rebecca De Santiago on 11-04-2024 Ketones Ql (U) Negative Negative [facility] Lymphocytes Auto (Unsp spec) [#/Vol]Ordered By: Rebecca De Santiago on 11-04-2024 Lymphocytes (Bld) [#/Vol] 1.90 10*3/uL 0.83-4.51 [facility] Lymphocytes/100 WBC Auto (Un sp spec)Ordered By: Rebecca De Santiago on 11-04-2024 Lymphocytes/100 WBC (Bld) 19.2 % 19-41 [facility] MCV (mean corpuscular volume ) determinationOrdered By: Rebecca De Santiago on 11-04-2024 MCV (RBC) [Entitic vol] 95.0 fL 81-99 [facility] Magnesiumon 11-04-2024 Magnesium [Mass/Vol] 1.9 mg/dL Normal 1.5-2.2 [facility] Comment on above: Order Comment: Comme nts: May add to ED labsComments: may add to ED labs Performed By: #### L 501.2300, L501.5200 ####[facility] [address] [place], [address] Magnesium (Unsp spec) [Mass/ Vol]Ordered By: Lauren Vela on 11-04-2024 Magnesium [Mass/Vol] 1.9 mg/dL 1.5-2.2 [facility] Magnesium measurement (mass/ volume)Ordered By: Lauren Vela on 11-04-2024 Magnesium (Unsp spec) [Mass/Vol] 1.9 mg/dL 1.5-2.2 [facility] Mean corpuscular hemoglobin (MCH) determinationOrdered By: Rebecca De Santiago on 11-04-2024 MCH (RBC) [Entitic mass] 31.2 pg 27.0-32.0 [facility] Mean corpuscular hemoglobin concentration (MCHC) determinationOrdered By: Rebecca De Santiago on 11-04-2024 MCHC (RBC) [Mass/Vol] 32.8 g/dL 32-36 [facility] Mean platelet volume determi nationOrdered By: Rebecca De Santiago on 11-04-2024 Platelet mean volume (Bld) [Entitic vol] 10.3 fL 6.2-12.0 [facility] Microscopic analysis of urin e for red blood cells (RBC)Ordered By: Rebecca De Santiago on 11-04-2024 Urine RBC 0 SEEN /hpf 0-5 [facility] Monocyte percentageOrdered B y: Rebecca De Santiago on 11-04-2024 Monocytes/100 WBC (Bld) 7.3 % 0-10 [facility] Mucus LM Ql (Urine sed)Order ed By: Rebecca De Santiago on 11-04-2024 Mucus Ql (Urine sed) 0 SEEN /hpf [facility] Neutrophil percentageOrdered By: Rebecca De Santiago on 11-04-2024 Neutrophils/100 WBC (Bld) 70.2 % High 47-70 [facility] Nitrite Test strip Ql (U)Ord ered By: Rebecca De Santiago on 11-04-2024 Nitrite Ql (U) Positive High Negative [facility] Nucleated red blood cell per centageOrdered By: Rebecca De Santiago on 11-04-2024 Nucleated RBC/100 WBC (Bld) [Ratio] 0 % 0-5 [facility] Phosphoruson 11-04-2024 Phosphate [Mass/Vol] 4.0 mg/dL Normal 2.7-4.5 [facility] Comment on above: Order Comment: Comme nts: May add to ED labsComments: may add to ED labs Performed By: #### L 501.2300, L501.5200 ####[facility] [address] [place], [address] Platelet countOrdered By: Latisha De Santiago on 11-04-2024 Platelets (Bld) [#/Vol] 261 10*3/uL 150-450 [facility] Potassium (Unsp spec) [Mass/ Vol]Ordered By: Rebecca De Santiago on 11-04-2024 Potassium [Moles/Vol] 3.7 mmol/L 3.3-5.1 [facility] Protein Test strip Ql (U)Ord ered By: Rebecca De Santiago on 11-04-2024 Protein Ql (U) 15 mg/dl High Negative [facility] RBC Auto (Bld) [#/Vol]Ordere d By: Rebecca De Santiago on 11-04-2024 RBC (Bld) [#/Vol] 4.62 10*6/uL 4.2-5.4 [facility] Serum creatinine measurement (mass/volume)Ordered By: Rebecca De Santiago on 11-04-2024 Creatinine [Mass/Vol] 1.48 mg/dL High 0.70-1.20 [facility] Serum glucose measurement (m ass/volume)Ordered By: Rebecca De Santiago on 11-04-2024 Glucose [Mass/Vol] 117 mg/dL High 70-99 [facility] Serum or plasma calcium dane urement (mass/volume)Ordered By: Rebecca De Santiago on 11-04-2024 Calcium [Mass/Vol] 9.3 mg/dL 7.6-11.0 [facility] Serum or plasma urea nitroge n measurement (mass/volume)Ordered By: Rebecca De Santiago on 11-04-2024 Urea nitrogen [Mass/Vol] 13 mg/dL 4-19 [facility] Serum phosphorus measurement Ordered By: Lauren Vela on 11-04-2024 Phosphorus Level 4.0 mg/dL 2.7-4.5 [facility] Sodium levelOrdered By: Sergio De Santiago on 11-04-2024 Sodium [Moles/Vol] 142 mmol/L 133-145 [facility] Squamous epithelial cells de tection in urine sediment by light microscopyOrdered By: Rebecca De Santiago on 11-04-2024 Epithelial cells.squamous LM Ql (Urine sed) 0 SEEN /hpf 5-10 [facility] Urinalysis, Completeon 11-04 BACTERIA 3+ /hpf Normal None Seen [facility] Comment on above: Order Comment: JASON TER SPECIMEN Performed By: #### L 400.0001 ####[facility] [address] [place], [address] WBC 25-50 SEEN Normal 0-5 [facility] Comment on above: Order Comment: JASON TER SPECIMEN Performed By: #### L 400.0001 ####[facility] [address] [place], [address] EPI,SQUAMOUS 0 SEEN Normal 5-10 [facility] Comment on above: Order Comment: JASON TER SPECIMEN Performed By: #### L 400.0001 ####[facility] [address] [place], [address] Mucus Ql (Urine sed) 0 SEEN Normal [facility] Comment on above: Order Comment: JASON TER SPECIMEN Performed By: #### L 400.0001 ####[facility] [address] [place], [address] RBC 0 SEEN Normal 0-5 [facility] Comment on above: Order Comment: JASON TER SPECIMEN Performed By: #### L 400.0001 ####[facility] [address] [place], [address] Urine blood detectionOrdered By: Rebecca De Santiago on 11-04-2024 Urine Occult Blood 50 /ul High Negative [facility] Urine clarityOrdered By: Chinmay De Santiago on 11-04-2024 Clarity (U) Sl. Cloudy Clear [facility] Urine color determinationOrd ered By: Rebecca De Sanitago on 11-04-2024 Color (U) Yellow Yellow [facility] Urine cultureOrdered By: Issa Chapin on 11-04-2024 Bacteria identified Cx Nom (U) Klebsiella pneumoniae sp pneum Abnormal [facility] Urine glucose detectionOrder ed By: Rebecca De Santiago on 11-04-2024 Glucose Ql (U) Normal mg/dl Normal [facility] Urine leukocyte esterase det ection by dipstickOrdered By: Rebecca De Santiago on 11-04-2024 Leukocyte esterase Test strip Ql (U) 500 /ul High Negative [facility] Urine pHOrdered By: Jayleen De Santiago on 11-04-2024 pH (U) 5.0 [pH] 5.0 - 8.0 [facility] Urine sediment bacteria coun t by microscopy (number/high power field)Ordered By: Rebecca De Santiago on 11-04-2024 Bacteria LM.HPF (Urine sed) [#/Area] 3 /[HPF] None Seen [facility] Urine specific gravity measu rementOrdered By: Rebecca De Santiago on 11-04-2024 Specific gravity (U) [Rel density] 1.020 1.002-1.030 [facility] Urine urobilinogen measureme ntOrdered By: Rebecca De Santiago on 11-04-2024 Urobilinogen Ql (U) 1 mg/dl High Normal [facility] Urobilinogen Ql (U)Ordered B y: Rebecca De Santiago on 11-04-2024 Urobilinogen (U) [Mass/Vol] 1 mg/dL High Normal [facility] White blood cell (WBC) count Ordered By: Rebecca De Santiago on 11-04-2024 WBC (Bld) [#/Vol] 9.9 10*3/uL 4.4-11.0 [facility] White blood cell countOrdere d By: Rebecca De Santiago on 11-04-2024 Urine WBC 25-50 SEEN /hpf 0-5 [facility] White blood cell count 25-50 SEEN /hpf 0-5 [facility] Bedside Glucoseon 09-21-2024 FINGERSTICK GLU 175 mg/dL High 74-106 [facility] Comment on above: Result Comment: BJ GEMENT OF PATIENT CARE PER NURSING PROTOCOL Performed By: #### L 501.080 ####[facility] [address] [place], [place], [id number] FINGERSTICK GLU 177 mg/dL High 74-106 [facility] Comment on above: Result Comment: BJ GEMENT OF PATIENT CARE PER NURSING PROTOCOL Performed By: #### L 501.080 ####[facility] [address] [place], [place], [id number] [facility] deOrdered By: Marco Jones on 09-21-2024 Bedside Glucose (Misc Panel) 175 mg/dL High 74-106 [facility] Comment on above: MANAGEMENT OF PATIEN T CARE PER NURSING PROTOCOL Glucose [Mass/Vol] 175 mg/dL High 74-106 [facility] Bedside Glucoseon 09-20-2024 FINGERSTICK GLU 216 mg/dL High [facility]106 [facility] Comment on above: Result Comment: BJ GEMENT OF PATIENT CARE PER NURSING PROTOCOL Performed By: #### L 501.080 ####[facility] [address] [facility] [address] FINGERSTICK GLU 208 mg/dL High [address] [place] [address] Comment on above: Result Comment: BJ GEMENT OF PATIENT CARE PER NURSING PROTOCOL Performed By: #### L 501.080 ####[facility] [address] [facility] [address] FINGERSTICK GLU 160 mg/dL [address] Comment on above: Result Comment: BJ GEMENT OF PATIENT CARE PER NURSING PROTOCOL Performed By: #### L 501.080 ####[facility] [address] [place], [address] FINGERSTICK GLU 119 mg/dL [address] [facility] Comment on above: Result Comment: BJ GEMENT OF PATIENT CARE PER NURSING PROTOCOL Performed By: #### L 501.080 ####[facility] [address] [place], [address] Absolute lymphocyte countOrd ered By: Guevara Collins on 09-19-2024 Lymphocytes Auto (Unsp spec) [#/Vol] 2.12 10*3/uL 0.83-4.51 [facility] Absolute neutrophil countOrd ered By: Guevara Collins on 09-19-2024 Neutrophils (Bld) [#/Vol] 14.6 10*3/uL High 2.0-7.7 [facility] Anion gap in Serum or Plasma Ordered By: Guevara Collins on 09-19-2024 Anion gap [Moles/Vol] 11 mmol/L 5-15 [facility] Automated lymphocyte count a s percentage of total leukocytesOrdered By: Guevara Collins on 09-19-2024 Lymphocytes/100 WBC Auto (Unsp spec) 11.7 % Low 19-41 [facility] BUN/creatinine ratioOrdered By: Guevara Collins on 09-19-2024 Urea nitrogen/Creatinine [Mass ratio] 29.4 mg/mg High 10-20 [facility] Basic Metabolic Profile (BMP )on 09-19-2024 BUN/CRE 29.4 RATIO High 10- [facility] Comment on above: Performed By: #### L 500.2500, L100.0100 ####[facility] [address] [place], [address] Calcium [Mass/Vol] 8.7 mg/dL Normal 7.6-11.0 [facility] Comment on above: Performed By: #### L 500.2500, L100.0100 ####[facility] [address] [place], [address] Chloride [Moles/Vol] 102 mmol/L Normal 98-108 [facility] Comment on above: Performed By: #### L 500.2500, L100.0100 ####[facility] [address] [place], [address] CO2 [Moles/Vol] 23.5 mmol/L Normal 21.0-32.0 [facility] Comment on above: Performed By: #### L 500.2500, L100.0100 ####[facility] [address] [place], [address] Creatinine [Mass/Vol] 1.43 mg/dL High 0.70-1.20 [facility] Comment on above: Performed By: #### L 500.2500, L100.0100 ####[facility] [address] [place], [address] ECRCL 50.72 ml/min Normal 50-250 [facility] Comment on above: Performed By: #### L 500.2500, L100.0100 ####[facility] [address] [place], [address] GAP 11 Normal 5-15 [facility] Comment on above: Performed By: #### L 500.2500, L100.0100 ####[facility] [address] [place], [address] GFR/1.73 sq M.predicted among non-blacks MDRD (S/P/Bld) [Vol rate/Area] 41 mL/min/{1.73_m2} Low >60 [facility] Comment on above: Result Comment: mL/m in/1.73m2 CKD-EPI Creatinine Equation (2020) Performed By: #### L 500.2500, L100.0100 ####[facility] [address] [place], [address] Glucose [Mass/Vol] 128 mg/dL High 70-99 [facility] Comment on above: Performed By: #### L 500.2500, L100.0100 ####[facility] [address] [place], [address] Potassium [Moles/Vol] 4.9 mmol/L Normal 3.3-5.1 [facility] Comment on above: Result Comment: Hemo lysis present, Results??could be affected.?? Performed By: #### L 500.2500, L100.0100 ####[facility] [address] [place], [address] Sodium [Moles/Vol] 136 mmol/L Normal 133-145 [facility] Comment on above: Performed By: #### L 500.2500, L100.0100 ####[facility] [address] [place], [address] Urea nitrogen [Mass/Vol] 42 mg/dL High 4-19 [facility] Comment on above: Performed By: #### L 500.2500, L100.0100 ####[facility] [address] [place], [address] Basophil percentageOrdered B y: Guevara Collins on 09-19-2024 Basophils/100 WBC (Bld) 0.2 % 0-1 [facility] Bedside Glucoseon 09-19-2024 FINGERSTICK GLU 208 mg/dL High 74-106 [facility] Comment on above: Result Comment: BJ GEMENT OF PATIENT CARE PER NURSING PROTOCOL Performed By: #### L 501.080 ####[facility] [address] [place], [address] FINGERSTICK GLU 142 mg/dL High 74-106 [facility] Comment on above: Result Comment: BJ GEMENT OF PATIENT CARE PER NURSING PROTOCOL Performed By: #### L 501.080 ####[facility] [address] [place], [address] FINGERSTICK GLU 172 mg/dL High 74-106 [facility] Comment on above: Result Comment: BJ GEMENT OF PATIENT CARE PER NURSING PROTOCOL Performed By: #### L 501.080 ####[facility] [address] [place], [address] FINGERSTICK GLU 127 mg/dL High 74-106 [facility] Comment on above: Result Comment: BJ GEMENT OF PATIENT CARE PER NURSING PROTOCOL Performed By: #### L 501.080 ####[facility] [address] [place], [address] CBC W/Diff, Automatedon Absolute Lymph 2.12 X10 3/uL Normal 0.83-4.51 [facility] Comment on above: Performed By: #### L 500.2500, L100.0100 ####[facility] [address] [place], [address] Absolute Neut 14.6 X10 3/uL High 2.0-7.7 [facility] Comment on above: Performed By: #### L 500.2500, L100.0100 ####[facility] [address] [place], [address] Basophils/100 WBC (Bld) 0.2 % Normal 0-1 [facility] Comment on above: Performed By: #### L 500.2500, L100.0100 ####[facility] [address] [place], [address] Eosinophils/100 WBC (Bld) 0.0 % Normal 0-5 [facility] Comment on above: Performed By: #### L 500.2500, L100.0100 ####[facility] [address] [place], [address] Erythrocyte distribution width (RBC) [Ratio] 13.0 % Normal 11.6-14.6 [facility] Comment on above: Performed By: #### L 500.2500, L100.0100 ####[facility] [address] [place], [address] Hematocrit (Bld) [Volume fraction] 42.3 % Normal 37-47 [facility] Comment on above: Performed By: #### L 500.2500, L100.0100 ####[facility] [address] [place], [address] Hemoglobin (Bld) [Mass/Vol] 14.1 g/dL Normal 12.0-15.0 [facility] Comment on above: Performed By: #### L 500.2500, L100.0100 ####[facility] [address] [place], [address] IG% 1.000 High 0.0-0.9 [facility] Comment on above: Result Comment: IG% - Immature Granulocytes (promyelocytes, myelocytes andmetamyelocytes) > 1% indicates that a LEFT SHIFT is Present. Performed By: #### L 500.2500, L100.0100 ####[facility] [address] [place], [address] Lymphocytes/100 WBC (Bld) 11.7 % Low 19-41 [facility] Comment on above: Performed By: #### L 500.2500, L100.0100 ####[facility] [address] [place], [address] MCH (RBC) [Entitic mass] 31.0 pg Normal 27.0-32.0 [facility] Comment on above: Performed By: #### L 500.2500, L100.0100 ####[facility] [address] [place], [address] MCHC (RBC) [Mass/Vol] 33.3 g/dL Normal 32-36 [facility] Comment on above: Performed By: #### L 500.2500, L100.0100 ####[facility] [address] [place], [address] MCV (RBC) [Entitic vol] 93.0 fL Normal 81-99 [facility] Comment on above: Performed By: #### L 500.2500, L100.0100 ####[facility] [address] [place], [address] Monocytes/100 WBC (Bld) 6.4 % Normal 0-10 [facility] Comment on above: Performed By: #### L 500.2500, L100.0100 ####[facility] [address] [place], [address] Neutrophils/100 WBC (Bld) 80.7 % High 47-70 [facility] Comment on above: Performed By: #### L 500.2500, L100.0100 ####[facility] [address] [place], [address] Nucleated RBC (Bld) [#/Vol] 0 10*3/uL Normal 0-5 [facility] Comment on above: Performed By: #### L 500.2500, L100.0100 ####[facility] [address] [place], [address] Platelet mean volume (Bld) [Entitic vol] 10.1 fL Normal 6.2-12.0 [facility] Comment on above: Performed By: #### L 500.2500, L100.0100 ####[facility] [address] [place], [address] Platelets (Bld) [#/Vol] 302 10*3/uL Normal 150-450 [facility] Comment on above: Performed By: #### L 500.2500, L100.0100 ####[facility] [address] [place], [address] RBC (Bld) [#/Vol] 4.55 10*6/uL Normal 4.2-5.4 [facility] Comment on above: Performed By: #### L 500.2500, L100.0100 ####[facility] [address] [place], [address] RDW SD 44.3 fl High 35.1-43.9 [facility] Comment on above: Performed By: #### L 500.2500, L100.0100 ####[facility] [address] [place], [address] WBC (Bld) [#/Vol] 18.1 10*3/uL High 4.4-11.0 [facility] Comment on above: Performed By: #### L 500.2500, L100.0100 ####[facility] [address] [place], [address] Carbon dioxide, total [Moles /volume] in Central venous bloodOrdered By: Guevara Collins on 09-19-2024 CO2 [Moles/Vol] 23.5 mmol/L 21.0-32.0 [facility] Chloride assayOrdered By: Latisha Collins on 09-19-2024 Chloride [Moles/Vol] 102 mmol/L 98-108 [facility] Eosinophil percentageOrdered By: Guevara Collins on 09-19-2024 Eosinophils/100 WBC (Bld) 0.0 % 0-5 [facility] Erythrocyte distribution wid th ratioOrdered By: Guevara Collins on 09-19-2024 Erythrocyte distribution width (RBC) [Ratio] 13.0 % 11.6-14.6 [facility] Erythrocyte distribution wid th standard deviationOrdered By: Guevara Collins on 09-19-2024 Erythrocyte distribution width (RBC) [Entitic vol] 44.3 fL High 35.1-43.9 [facility] Erythrocyte distribution width (RBC) [Ratio] 44.3 fl High 35.1-43.9 [facility] Estimation of creatinine julee aranceOrdered By: Guevara Collins on 09-19-2024 Estimated Creatinine Clearance Calc 50.72 ml/min 50-250 [facility] GFR/1.73 sq M.predicted yu g non-blacks MDRD (S/P/Bld) [Vol rate/Area]Ordered By: Guevara Collins on 09-19-2024 Estimated GFR (MDRD) Non-Af Amer 41 Low >60 [facility] Comment on above: mL/min/1.73m2 CKD-EP I Creatinine Equation (2020) Glomerular filtration rate ( GFR) estimation/1.73 sq m using serum, plasma, or whole bOrdered By: Guevara Collins on 09-19-2024 GFR/1.73 sq M.predicted among non-blacks MDRD (S/P/Bld) [Vol rate/Area] 41 mL/min/{1.73_m2} Low >60 [facility] Hematocrit Auto (Bld) [Volum e fraction]Ordered By: Guevara Collins on 09-19-2024 Hematocrit (Bld) [Volume fraction] 42.3 % 37-47 [facility] Hemoglobin measurementOrdere d By: Guevara Collins on 09-19-2024 Hemoglobin (Bld) [Mass/Vol] 14.1 g/dL 12.0-15.0 [facility] Immature granulocytes/100 WB C Auto (Bld)Ordered By: Guevara Collins on 09-19-2024 Immature granulocytes/100 WBC (Bld) 1.000 % High 0.0-0.9 [facility] Comment on above: IG% - Immature Granu locytes (promyelocytes, myelocytes and metamyelocytes) > 1% indicates that a LEFT SHIFT is Present. Lymphocytes Auto (Unsp spec) [#/Vol]Ordered By: Guevara Collins on 09-19-2024 Lymphocytes (Bld) [#/Vol] 2.12 10*3/uL 0.83-4.51 [facility] Lymphocytes/100 WBC Auto (Un sp spec)Ordered By: Guevara Collins on 09-19-2024 Lymphocytes/100 WBC (Bld) 11.7 % Low 19-41 [facility] MCV (mean corpuscular volume ) determinationOrdered By: Guevara Collins on 09-19-2024 MCV (RBC) [Entitic vol] 93.0 fL 81-99 [facility] Mean corpuscular hemoglobin (MCH) determinationOrdered By: Guevara Collins on 09-19-2024 MCH (RBC) [Entitic mass] 31.0 pg 27.0-32.0 [facility] Mean corpuscular hemoglobin concentration (MCHC) determinationOrdered By: Guevara Collins on 09-19-2024 MCHC (RBC) [Mass/Vol] 33.3 g/dL 32-36 [facility] Mean platelet volume determi nationOrdered By: Guevara Collins on 09-19-2024 Platelet mean volume (Bld) [Entitic vol] 10.1 fL 6.2-12.0 [facility] Monocyte percentageOrdered B y: Guevara Collins on 09-19-2024 Monocytes/100 WBC (Bld) 6.4 % 0-10 [facility] Neutrophil percentageOrdered By: Guevara Collins on 09-19-2024 Neutrophils/100 WBC (Bld) 80.7 % High 47-70 [facility] Nucleated red blood cell per centageOrdered By: Guevara Collins on 09-19-2024 Nucleated RBC/100 WBC (Bld) [Ratio] 0 % 0-5 [facility] Platelet countOrdered By: Latisha Collins on 09-19-2024 Platelets (Bld) [#/Vol] 302 10*3/uL 150-450 [facility] Potassium (Unsp spec) [Mass/ Vol]Ordered By: Guevara Collins on 09-19-2024 Potassium [Moles/Vol] 4.9 mmol/L 3.3-5.1 [facility] Comment on above: Hemolysis present, R esults could be affected. Potassium measurement (mass/ volume)Ordered By: Guevara Collins on 09-19-2024 Potassium (Unsp spec) [Mass/Vol] 4.9 mmol/L 3.3-5.1 [facility] RBC Auto (Bld) [#/Vol]Ordere d By: Guevara Collins on 09-19-2024 RBC (Bld) [#/Vol] 4.55 10*6/uL 4.2-5.4 [facility] Serum creatinine measurement (mass/volume)Ordered By: Guevara Collins on 09-19-2024 Creatinine [Mass/Vol] 1.43 mg/dL High 0.70-1.20 [facility] Serum glucose measurement (m ass/volume)Ordered By: Guevara Collins on 09-19-2024 Glucose [Mass/Vol] 128 mg/dL High 70-99 [facility] Serum or plasma calcium dane urement (mass/volume)Ordered By: Guevara Collins on 09-19-2024 Calcium [Mass/Vol] 8.7 mg/dL 7.6-11.0 [facility] Serum or plasma urea nitroge n measurement (mass/volume)Ordered By: Guevara Collins on 09-19-2024 Urea nitrogen [Mass/Vol] 42 mg/dL High 4-19 [facility] Sodium levelOrdered By: Krishna Collins on 09-19-2024 Sodium [Moles/Vol] 136 mmol/L 133-145 [facility] White blood cell (WBC) count Ordered By: Guevara Collins on 09-19-2024 WBC (Bld) [#/Vol] 18.1 10*3/uL High 4.4-11.0 [facility] Basic Metabolic Profile (BMP )on 09-18-2024 Anion gap [Moles/Vol] 12 mmol/L Normal 5-15 [facility] Comment on above: Performed By: #### L 500.2500 ####[facility] [address] [place], [address] BUN/CRE 30.9 RATIO High 10-20 [facility] Comment on above: Performed By: #### L 500.2500 ####[facility] [address] [place], [address] Calcium [Mass/Vol] 8.9 mg/dL Normal 7.6-11.0 [facility] Comment on above: Performed By: #### L 500.2500 ####[facility] [address] [place], [address] Chloride [Moles/Vol] 103 mmol/L Normal 96-108 [facility] Comment on above: Performed By: #### L 500.2500 ####[facility] [address] [place], [address] CO2 [Moles/Vol] 24.3 mmol/L Normal 22.0-29.0 [facility] Comment on above: Performed By: #### L 500.2500 ####[facility] [address] [place], [address] Creatinine [Mass/Vol] 1.39 mg/dL High 0.70-1.20 [facility] Comment on above: Performed By: #### L 500.2500 ####[facility] [address] [place], [address] ECRCL 52.18 ml/min Normal 50-250 [facility] Comment on above: Performed By: #### L 500.2500 ####[facility] [address] [place], [address] GFR/1.73 sq M.predicted among non-blacks MDRD (S/P/Bld) [Vol rate/Area] 43 mL/min/{1.73_m2} Low >60 [facility] Comment on above: Result Comment: mL/m in/1.73m2 CKD-EPI Creatinine Equation (2020) Performed By: #### L 500.2500 ####[facility] [address] [place], [address] Glucose [Mass/Vol] 124 mg/dL High 70-99 [facility] Comment on above: Performed By: #### L 500.2500 ####[facility] [address] [place], [address] Potassium [Moles/Vol] 4.5 mmol/L Normal 3.3-5.1 [facility] Comment on above: Performed By: #### L 500.2500 ####[facility] [address] [place], [address] Sodium [Moles/Vol] 139 mmol/L Normal 133-145 [facility] Comment on above: Performed By: #### L 500.2500 ####[facility] [address] [place], [address] Urea nitrogen [Mass/Vol] 43 mg/dL High 4-19 [facility] Comment on above: Performed By: #### L 500.2500 ####[facility] [address] [place], [address] Bedside Glucoseon 09-18-2024 FINGERSTICK GLU 185 mg/dL High 74-106 [facility] Comment on above: Result Comment: BJ ZENY OF PATIENT CARE PER NURSING PROTOCOL Performed By: #### L 501.080 ####[facility] [address] [place], [address] FINGERSTICK GLU 145 mg/dL High 74-106 [facility] Comment on above: Result Comment: BJ GEMENT OF PATIENT CARE PER NURSING PROTOCOL Performed By: #### L 501.080 ####[facility] [address] [place], [address] FINGERSTICK GLU 165 mg/dL High 74-106 [facility] Comment on above: Result Comment: Dext jose 50 GivenDr Orders FollowedSnack GivenMANAGEMENT OF PATIENT CARE PER NURSING PROTOCOL Performed By: #### L 501.080 ####[facility] [address] [place], [address] FINGERSTICK GLU 127 mg/dL High 74-106 [facility] Comment on above: Result Comment: BJ GEMENT OF PATIENT CARE PER NURSING PROTOCOL Performed By: #### L 501.080 ####[facility] [address] [place], [address] Chloride measurementOrdered By: Guevara Collins on 09-18-2024 Chloride [Moles/Vol] 103 mmol/L 96-108 [facility] Basic Metabolic Profile (BMP )on 09-17-2024 Anion gap [Moles/Vol] 13 mmol/L Normal 5-15 [facility] Comment on above: Performed By: #### L 500.2500 ####[facility] [address] [place], [address] BUN/CRE 30.4 RATIO High 10-20 [facility] Comment on above: Performed By: #### L 500.2500 ####[facility] [address] [place], [address] Calcium [Mass/Vol] 8.8 mg/dL Normal 7.6-11.0 [facility] Comment on above: Performed By: #### L 500.2500 ####[facility] [address] [place], [address] Chloride [Moles/Vol] 101 mmol/L Normal 96-108 [facility] Comment on above: Performed By: #### L 500.2500 ####[facility] [address] [place], [address] CO2 [Moles/Vol] 24.7 mmol/L Normal 22.0-29.0 [facility] Comment on above: Performed By: #### L 500.2500 ####[facility] [address] [place], [address] Creatinine [Mass/Vol] 1.41 mg/dL High 0.70-1.20 [facility] Comment on above: Performed By: #### L 500.2500 ####[facility] [address] [place], [address] ECRCL 51.44 ml/min Normal 50-250 [facility] Comment on above: Performed By: #### L 500.2500 ####[facility] [address] [place], [address] GFR/1.73 sq M.predicted among non-blacks MDRD (S/P/Bld) [Vol rate/Area] 42 mL/min/{1.73_m2} Low >60 [facility] Comment on above: Result Comment: mL/m in/1.73m2 CKD-EPI Creatinine Equation (2020) Performed By: #### L 500.2500 ####[facility] [address] [place], [address] Glucose [Mass/Vol] 131 mg/dL High 70-99 [facility] Comment on above: Performed By: #### L 500.2500 ####[facility] [address] [place], [address] Potassium [Moles/Vol] 4.2 mmol/L Normal 3.3-5.1 [facility] Comment on above: Result Comment: Hemo lysis present, Results??could be affected.?? Performed By: #### L 500.2500 ####[facility] [address] [place], [address] Sodium [Moles/Vol] 138 mmol/L Normal 133-145 [facility] Comment on above: Performed By: #### L 500.2500 ####[facility] [address] [place], [address] Urea nitrogen [Mass/Vol] 43 mg/dL High 4-19 [facility] Comment on above: Performed By: #### L 500.2500 ####[facility] [address] [place], [address] Bedside Glucoseon 09-17-2024 FINGERSTICK GLU 156 mg/dL High 74-106 [facility] Comment on above: Result Comment: BJ GEMENT OF PATIENT CARE PER NURSING PROTOCOL Performed By: #### L 501.080 ####[facility] [address] [place], [address] FINGERSTICK GLU 238 mg/dL High 74-106 [facility] Comment on above: Result Comment: BJ GEMENT OF PATIENT CARE PER NURSING PROTOCOL Performed By: #### L 501.080 ####[facility] [address] [place], [address] FINGERSTICK GLU 144 mg/dL High 74-106 [facility] [facility] Comment on above: Result Comment: BJ GEMENT OF PATIENT CARE PER NURSING PROTOCOL Performed By: #### L 501.080 ####[facility] [address] [place], [address] FINGERSTICK GLU 136 mg/dL High 74-106 [facility] Comment on above: Result Comment: BJ GEMENT OF PATIENT CARE PER NURSING PROTOCOL Performed By: #### L 501.080 ####[facility] [address] [place], [address] CBC W/Diff, Automatedon 03-0 3-2024 Absolute Lymph 1.69 X10 3/uL Normal 0.83-4.51 [facility] Comment on above: Performed By: #### L 100.0100 ####[facility] [address] [place], [address] Absolute Neut 10.2 X10 3/uL High 2.0-7.7 [facility] Comment on above: Performed By: #### L 100.0100 ####[facility] [address] [place], [address] Basophils/100 WBC (Bld) 0.1 % Normal 0-1 [facility] Comment on above: Performed By: #### L 100.0100 ####[facility] [address] [place], [address] Eosinophils/100 WBC (Bld) 0.0 % Normal 0-5 [facility] Comment on above: Performed By: #### L 100.0100 ####[facility] [address] [place], [address] Erythrocyte distribution width (RBC) [Ratio] 13.0 % Normal 11.6-14.6 [facility] Comment on above: Performed By: #### L 100.0100 ####[facility] [address] [place], [address] Hematocrit (Bld) [Volume fraction] 42.4 % Normal 37-47 [facility] Comment on above: Performed By: #### L 100.0100 ####[facility] [address] [place], [address] Hemoglobin (Bld) [Mass/Vol] 14.1 g/dL Normal 12.0-15.0 [facility] Comment on above: Performed By: #### L 100.0100 ####[facility] [address] [place], [address] IG% 0.500 Normal 0.0-0.9 [facility] Comment on above: Result Comment: IG% - Immature Granulocytes (promyelocytes, myelocytes andmetamyelocytes) > 1% indicates that a LEFT SHIFT is Present. Performed By: #### L 100.0100 ####[facility] [address] [place], [id number] Lymphocytes/100 WBC (Bld) 13.2 % Low 19-41 [facility] Comment on above: Performed By: #### L 100.0100 ####[facility] [address] [place], [id number] MCH (RBC) [Entitic mass] 31.1 pg Normal 27.0-32.0 [facility] Comment on above: Performed By: #### L 100.0100 ####[facility] [address] [place], [id number] MCHC (RBC) [Mass/Vol] 33.3 g/dL Normal 32-36 [facility] Comment on above: Performed By: #### L 100.0100 ####[facility] [address] [place], [id number] MCV (RBC) [Entitic vol] 93.6 fL Normal 81-99 [facility] Comment on above: Performed By: #### L 100.0100 ####[facility] [address] [place], [address] Monocytes/100 WBC (Bld) 6.6 % Normal 0-10 [facility] Comment on above: Performed By: #### L 100.0100 ####[facility] [address] [place], [id number] Neutrophils/100 WBC (Bld) 79.6 % High 47-70 [facility] Comment on above: Performed By: #### L 100.0100 ####[facility] [address] [place], [id number] Nucleated RBC (Bld) [#/Vol] 0 10*3/uL Normal 0-5 [facility] Comment on above: Performed By: #### L 100.0100 ####[facility] [address] [place], [id number] Platelet mean volume (Bld) [Entitic vol] 10.6 fL Normal 6.2-12.0 [facility] Comment on above: Performed By: #### L 100.0100 ####[facility] [address] [place], [id number] Platelets (Bld) [#/Vol] 291 10*3/uL Normal 150-450 [facility] Comment on above: Performed By: #### L 100.0100 ####[facility] [address] [place], [id number] RBC (Bld) [#/Vol] 4.53 10*6/uL Normal 4.2-5.4 [facility] Comment on above: Performed By: #### L 100.0100 ####[facility] [address] [place], [id number] RDW SD 45.1 fl High 35.1-43.9 [facility] Comment on above: Performed By: #### L 100.0100 ####[facility] [address] [place], [id number] WBC (Bld) [#/Vol] 12.8 10*3/uL High 4.4-11.0 [facility] Comment on above: Performed By: #### L 100.0100 ####[facility] [address] [place], [address] Culture, Blood (WB)on 2024 CUB Blood cultures x2, from two different sites No growth in 5 days. Normal [facility] Comment on above: Performed By: #### L 300.4310, L100.0100, M200.1000, L300.3900, L500.4050, L503.6005 ####[facility] [address] [place], [address] Basic Metabolic Profile (BMP )on 09-16-2024 Anion gap [Moles/Vol] 11 mmol/L Normal 5-15 [facility] Comment on above: Performed By: #### L 500.2500, L100.0100 ####[facility] [address] [place], [address] BUN/CRE 23.4 RATIO High 10-20 [facility] Comment on above: Performed By: #### L 500.2500, L100.0100 ####[facility] [address] [place], [address] Calcium [Mass/Vol] 9.2 mg/dL Normal 7.6-11.0 [facility] Comment on above: Performed By: #### L 500.2500, L100.0100 ####[facility] [address] [place], [address] Chloride [Moles/Vol] 104 mmol/L Normal 96-108 [facility] Comment on above: Performed By: #### L 500.2500, L100.0100 ####[facility] [address] [place], [address] CO2 [Moles/Vol] 25.6 mmol/L Normal 22.0-29.0 [facility] Comment on above: Performed By: #### L 500.2500, L100.0100 ####[facility] [address] [place], [address] Creatinine [Mass/Vol] 1.32 mg/dL High 0.70-1.20 [facility] Comment on above: Performed By: #### L 500.2500, L100.0100 ####[facility] [address] [place], [address] ECRCL 54.94 ml/min Normal 50-250 [facility] Comment on above: Performed By: #### L 500.2500, L100.0100 ####[facility] [address] [place], [address] GFR/1.73 sq M.predicted among non-blacks MDRD (S/P/Bld) [Vol rate/Area] 46 mL/min/{1.73_m2} Low >60 [facility] Comment on above: Result Comment: mL/m in/1.73m2 CKD-EPI Creatinine Equation (2020) Performed By: #### L 500.2500, L100.0100 ####[facility] [address] [place], [address] Glucose [Mass/Vol] 136 mg/dL High 70-99 [facility] Comment on above: Performed By: #### L 500.2500, L100.0100 ####[facility] [address] [place], [address] Potassium [Moles/Vol] 4.3 mmol/L Normal 3.3-5.1 [facility] Comment on above: Performed By: #### L 500.2500, L100.0100 ####[facility] [address] [place], [address] Sodium [Moles/Vol] 140 mmol/L Normal 133-145 [facility] Comment on above: Performed By: #### L 500.2500, L100.0100 ####[facility] [address] [place], [address] Urea nitrogen [Mass/Vol] 31 mg/dL High 4-19 [facility] Comment on above: Performed By: #### L 500.2500, L100.0100 ####[facility] [address] [place], [address] Bedside Glucoseon 09-16-2024 FINGERSTICK GLU 172 mg/dL High 74-106 [facility] Comment on above: Result Comment: BJ GEMENT OF PATIENT CARE PER NURSING PROTOCOL Performed By: #### L 501.080 ####[facility] [address] [place], [address] FINGERSTICK GLU 196 mg/dL High 74-106 [facility] Comment on above: Result Comment: BJ GEMENT OF PATIENT CARE PER NURSING PROTOCOL Performed By: #### L 501.080 ####[facility] [address] [place], [address] FINGERSTICK GLU 151 mg/dL High -106 [facility] Comment on above: Result Comment: BJ GEMENT OF PATIENT CARE PER NURSING PROTOCOL Performed By: #### L 501.080 ####[facility] [address] [place], [address] FINGERSTICK GLU 135 mg/dL High -106 [facility] Comment on above: Result Comment: BJ GEMENT OF PATIENT CARE PER NURSING PROTOCOL Performed By: #### L 501.080 ####[facility] [address] [place], [address] CBC W/Diff, Automatedon 03-0 Absolute Lymph 1.02 X10 3/uL Normal 0.83-4.51 [facility] Comment on above: Performed By: #### L 500.2500, L100.0100 ####[facility] [address] [place], [address] Absolute Neut 7.2 X10 3/uL Normal 2.0-7.7 [facility] Comment on above: Performed By: #### L 500.2500, L100.0100 ####[facility] [address] [place], [address] Basophils/100 WBC (Bld) 0.1 % Normal 0-1 [facility] Comment on above: Performed By: #### L 500.2500, L100.0100 ####[facility] [address] [place], [address] Eosinophils/100 WBC (Bld) 0.0 % Normal 0-5 [facility] Comment on above: Performed By: #### L 500.2500, L100.0100 ####[facility] [address] [place], [address] Erythrocyte distribution width (RBC) [Ratio] 13.1 % Normal 11.6-14.6 [facility] Comment on above: Performed By: #### L 500.2500, L100.0100 ####[facility] [address] [place], [address] Hematocrit (Bld) [Volume fraction] 41.8 % Normal 37-47 [facility] Comment on above: Performed By: #### L 500.2500, L100.0100 ####[facility] [address] [place], [address] Hemoglobin (Bld) [Mass/Vol] 13.7 g/dL Normal 12.0-15.0 [facility] Comment on above: Performed By: #### L 500.2500, L100.0100 ####[facility] [address] [place], [address] IG% 0.300 Normal 0.0-0.9 [facility] Comment on above: Result Comment: IG% - Immature Granulocytes (promyelocytes, myelocytes andmetamyelocytes) > 1% indicates that a LEFT SHIFT is Present. Performed By: #### L 500.2500, L100.0100 ####[facility] [address] [place], [address] Lymphocytes/100 WBC (Bld) 11.4 % Low 19-41 [facility] Comment on above: Performed By: #### L 500.2500, L100.0100 ####[facility] [address] [place], [address] MCH (RBC) [Entitic mass] 30.9 pg Normal 27.0-32.0 [facility] Comment on above: Performed By: #### L 500.2500, L100.0100 ####[facility] [address] [place], [address] MCHC (RBC) [Mass/Vol] 32.8 g/dL Normal 32-36 [facility] Comment on above: Performed By: #### L 500.2500, L100.0100 ####[facility] [address] [place], [address] MCV (RBC) [Entitic vol] 94.4 fL Normal 81-99 [facility] Comment on above: Performed By: #### L 500.2500, L100.0100 ####[facility] [address] [place], [address] Monocytes/100 WBC (Bld) 7.1 % Normal 0-10 [facility] Comment on above: Performed By: #### L 500.2500, L100.0100 ####[facility] [address] [place], [address] Neutrophils/100 WBC (Bld) 81.1 % High 47-70 [facility] Comment on above: Performed By: #### L 500.2500, L100.0100 ####[facility] [address] [place], [address] Nucleated RBC (Bld) [#/Vol] 0 10*3/uL Normal 0-5 [facility] Comment on above: Performed By: #### L 500.2500, L100.0100 ####[facility] [address] [place], [address] Platelet mean volume (Bld) [Entitic vol] 10.4 fL Normal 6.2-12.0 [facility] Comment on above: Performed By: #### L 500.2500, L100.0100 ####[facility] [address] [place], [address] Platelets (Bld) [#/Vol] 263 10*3/uL Normal 150-450 [facility] Comment on above: Performed By: #### L 500.2500, L100.0100 ####[facility] [address] [place], [address] RBC (Bld) [#/Vol] 4.43 10*6/uL Normal 4.2-5.4 [facility] Comment on above: Performed By: #### L 500.2500, L100.0100 ####[facility] [address] [place], [address] RDW SD 45.6 fl High 35.1-43.9 [facility] Comment on above: Performed By: #### L 500.2500, L100.0100 ####[facility] [address] [place], [address] WBC (Bld) [#/Vol] 8.9 10*3/uL Normal 4.4-11.0 [facility] Comment on above: Performed By: #### L 500.2500, L100.0100 ####[facility] [address] [place], [address] Bedside Glucoseon 09-15-2024 FINGERSTICK GLU 143 mg/dL High 74-106 [facility] Comment on above: Result Comment: BJ GEMENT OF PATIENT CARE PER NURSING PROTOCOL Performed By: #### L 501.080 ####[facility] [address] [place], [address] FINGERSTICK GLU 141 mg/dL High 74-106 [facility] Comment on above: Result Comment: BJ GEMENT OF PATIENT CARE PER NURSING PROTOCOL Performed By: #### L 501.080 ####[facility] [address] [place], [address] FINGERSTICK GLU 118 mg/dL High 74-106 [facility] Comment on above: Result Comment: BJ GEMENT OF PATIENT CARE PER NURSING PROTOCOL Performed By: #### L 501.080 ####[facility] [address] [place], [address] FINGERSTICK GLU 117 mg/dL High 74-106 [facility] Comment on above: Result Comment: BJ GEMENT OF PATIENT CARE PER NURSING PROTOCOL Performed By: #### L 501.080 ####[facility] [address] [place], [address] FINGERSTICK GLU 145 mg/dL High 74-106 [facility] Comment on above: Result Comment: BJ GEMENT OF PATIENT CARE PER NURSING PROTOCOL Performed By: #### L 501.080 ####[facility] [address] [place], [address] Basic Metabolic Profile (BMP )on 09-14-2024 Anion gap [Moles/Vol] 10 mmol/L Normal 5-15 [facility] Comment on above: Performed By: #### L 500.2500 ####[facility] [address] [place], [address] BUN/CRE 15.8 RATIO Normal 10-20 [facility] Comment on above: Performed By: #### L 500.2500 ####[facility] [address] [place], [address] Calcium [Mass/Vol] 8.7 mg/dL Normal 7.6-11.0 [facility] Comment on above: Performed By: #### L 500.2500 ####[facility] [address] [place], [address] Chloride [Moles/Vol] 108 mmol/L Normal 96-108 [facility] Comment on above: Performed By: #### L 500.2500 ####[facility] [address] [place], [address] CO2 [Moles/Vol] 21.7 mmol/L Low 22.0-29.0 [facility] Comment on above: Performed By: #### L 500.2500 ####[facility] [address] [place], [address] Creatinine [Mass/Vol] 1.20 mg/dL Normal 0.70-1.20 [facility] Comment on above: Performed By: #### L 500.2500 ####[facility] [address] [place], [address] ECRCL 60.44 ml/min Normal [facility] Comment on above: Performed By: #### L 500.2500 ####[facility] [address] [place], [address] GFR/1.73 sq M.predicted among non-blacks MDRD (S/P/Bld) [Vol rate/Area] 51 mL/min/{1.73_m2} Low >60 [facility] Comment on above: Result Comment: mL/m in/1.73m2 CKD-EPI Creatinine Equation (2020) Performed By: #### L 500.2500 ####[facility] [address] [place], [address] Glucose [Mass/Vol] 132 mg/dL High 70-99 [facility] Comment on above: Performed By: #### L 500.2500 ####[facility] [address] [place], [address] Potassium [Moles/Vol] 4.1 mmol/L Normal 3.3-5.1 [facility] Comment on above: Performed By: #### L 500.2500 ####[facility] [address] [place], [address] Sodium [Moles/Vol] 140 mmol/L Normal 133-145 [facility] Comment on above: Performed By: #### L 500.2500 ####[facility] [address] [place], [address] Urea nitrogen [Mass/Vol] 19 mg/dL Normal 4-19 [facility] Comment on above: Performed By: #### L 500.2500 ####[facility] [address] [place], [address] Bedside Glucoseon 09-14-2024 FINGERSTICK GLU 185 mg/dL High 74-106 [facility] Comment on above: Result Comment: BJ GEMENT OF PATIENT CARE PER NURSING PROTOCOL Performed By: #### L 501.080 ####[facility] [address] [place], [address] FINGERSTICK GLU 210 mg/dL High 74-106 [facility] Comment on above: Result Comment: BJ GEMENT OF PATIENT CARE PER NURSING PROTOCOL Performed By: #### L 501.080 ####[facility] [address] [place], [address] FINGERSTICK GLU 130 mg/dL High 74-106 [facility] Comment on above: Result Comment: BJ GEMENT OF PATIENT CARE PER NURSING PROTOCOL Performed By: #### L 501.080 ####[facility] [address] [place], [address] Basic Metabolic Profile (BMP )on 09-13-2024 Anion gap [Moles/Vol] 10 mmol/L Normal 5-15 [facility] Comment on above: Order Comment: Comme nts: NPO at [place] prior to lipid panel Performed By: #### L 501.9985, L501.9520, L500.2500, L500.4100, L100.0100 ####[facility] [address] [place], [address] BUN/CRE 11.3 RATIO Normal 10-20 [facility] Comment on above: Order Comment: Comme nts: NPO at [place] prior to lipid panel Performed By: #### L 501.9985, L501.9520, L500.2500, L500.4100, L100.0100 ####[facility] [address] [place], [address] Calcium [Mass/Vol] 8.4 mg/dL Normal 7.6-11.0 [facility] Comment on above: Order Comment: Comme nts: NPO at [place] prior to lipid panel Performed By: #### L 501.9985, L501.9520, L500.2500, L500.4100, L100.0100 ####[facility] [address] [place], [address] Chloride [Moles/Vol] 109 mmol/L High 96-108 [facility] Comment on above: Order Comment: Comme nts: NPO at [place] prior to lipid panel Performed By: #### L 501.9985, L501.9520, L500.2500, L500.4100, L100.0100 ####[facility] [address] [place], [address] CO2 [Moles/Vol] 21.1 mmol/L Low 22.0-29.0 [facility] Comment on above: Order Comment: Comme nts: NPO at [place] prior to lipid panel Performed By: #### L 501.9985, L501.9520, L500.2500, L500.4100, L100.0100 ####[facility] [address] [place], [address] Creatinine [Mass/Vol] 1.3 mg/dL High 0.6-1.0 [facility] Comment on above: Order Comment: Comme nts: NPO at [place] prior to lipid panel Performed By: #### L 501.9985, L501.9520, L500.2500, L500.4100, L100.0100 ####[facility] [address] [place], [address] ECRCL 55.79 ml/min Normal [facility] Comment on above: Order Comment: Comme nts: NPO at [place] prior to lipid panel Performed By: #### L 501.9985, L501.9520, L500.2500, L500.4100, L100.0100 ####[facility] [address] [place], [address] GFR/1.73 sq M.predicted among non-blacks MDRD (S/P/Bld) [Vol rate/Area] 48 mL/min/{1.73_m2} Low >60 [facility] Comment on above: Order Comment: Comme nts: NPO at [place] prior to lipid panel Result Comment: mL/m in/1.73m2 CKD-EPI Creatinine Equation (2020) Performed By: #### L 501.9985, L501.9520, L500.2500, L500.4100, L100.0100 ####[facility] [address] [place], [address] Glucose [Mass/Vol] 130 mg/dL High 70-99 [facility] Comment on above: Order Comment: Comme nts: NPO at [place] prior to lipid panel Performed By: #### L 501.9985, L501.9520, L500.2500, L500.4100, L100.0100 ####[facility] [address] [place], [address] Potassium [Moles/Vol] 3.9 mmol/L Normal 3.3-5.1 [facility] Comment on above: Order Comment: Comme nts: NPO at [place] prior to lipid panel Performed By: #### L 501.9985, L501.9520, L500.2500, L500.4100, L100.0100 ####[facility] [address] [place], [address] Sodium [Moles/Vol] 140 mmol/L Normal 133-145 [facility] Comment on above: Order Comment: Comme nts: NPO at [place] prior to lipid panel Performed By: #### L 501.9985, L501.9520, L500.2500, L500.4100, L100.0100 ####[facility] [address] [place], [address] Urea nitrogen [Mass/Vol] 14 mg/dL Normal 4-19 [facility] Comment on above: Order Comment: Comme nts: NPO at [place] prior to lipid panel Performed By: #### L 501.9985, L501.9520, L500.2500, L500.4100, L100.0100 ####[facility] [address] [place], [address] Bedside Glucoseon 09-13-2024 FINGERSTICK GLU 129 mg/dL High 74-106 [facility] Comment on above: Result Comment: BJ GEMENT OF PATIENT CARE PER NURSING PROTOCOL Performed By: #### L 501.080 ####[facility] [address] [place], [address] FINGERSTICK GLU 148 mg/dL High 74-106 [facility] Comment on above: Result Comment: BJ GEMENT OF PATIENT CARE PER NURSING PROTOCOL Performed By: #### L 501.080 ####[facility] [address] [place], [address] FINGERSTICK GLU 195 mg/dL High 74-106 [facility] Comment on above: Result Comment: BJ GEMENT OF PATIENT CARE PER NURSING PROTOCOL Performed By: #### L 501.080 ####[facility] [address] [place], [address] FINGERSTICK GLU 128 mg/dL High 74-106 [facility] Comment on above: Result Comment: BJ GEMENT OF PATIENT CARE PER NURSING PROTOCOL Performed By: #### L 501.080 ####[facility] [address] [place], [address] CBC W/Diff, Automatedon 02- Absolute Lymph 0.76 X10 3/uL Low 0.83-4.51 [facility] Comment on above: Performed By: #### L 501.9985, L501.9520, L500.2500, L500.4100, L100.0100 ####[facility] [address] [place], [address] Absolute Neut 6.1 X10 3/uL Normal 2.0-7.7 [facility] Comment on above: Performed By: #### L 501.9985, L501.9520, L500.2500, L500.4100, L100.0100 ####[facility] [address] [place], [address] Basophils/100 WBC (Bld) 0.1 % Normal 0-1 [facility] Comment on above: Performed By: #### L 501.9985, L501.9520, L500.2500, L500.4100, L100.0100 ####[facility] [address] [place], [address] Eosinophils/100 WBC (Bld) 0.0 % Normal 0-5 [facility] Comment on above: Performed By: #### L 501.9985, L501.9520, L500.2500, L500.4100, L100.0100 ####[facility] [address] [place], [address] Erythrocyte distribution width (RBC) [Ratio] 13.1 % Normal 11.6-14.6 [facility] Comment on above: Performed By: #### L 501.9985, L501.9520, L500.2500, L500.4100, L100.0100 ####[facility] [address] [place], [address] Hematocrit (Bld) [Volume fraction] 39.3 % Normal 37-47 [facility] Comment on above: Performed By: #### L 501.9985, L501.9520, L500.2500, L500.4100, L100.0100 ####[facility] [address] [place], [address] Hemoglobin (Bld) [Mass/Vol] 12.9 g/dL Normal 12.0-15.0 [facility] Comment on above: Performed By: #### L 501.9985, L501.9520, L500.2500, L500.4100, L100.0100 ####[facility] [address] [place], [address] IG% 0.500 Normal 0.0-0.9 [facility] Comment on above: Result Comment: IG% - Immature Granulocytes (promyelocytes, myelocytes andmetamyelocytes) > 1% indicates that a LEFT SHIFT is Present. Performed By: #### L 501.9985, L501.9520, L500.2500, L500.4100, L100.0100 ####[facility] [address] [place], [address] Lymphocytes/100 WBC (Bld) 10.0 % Low 19-41 [facility] Comment on above: Performed By: #### L 501.9985, L501.9520, L500.2500, L500.4100, L100.0100 ####[facility] [address] [place], [address] MCH (RBC) [Entitic mass] 31.7 pg Normal 27.0-32.0 [facility] Comment on above: Performed By: #### L 501.9985, L501.9520, L500.2500, L500.4100, L100.0100 ####[facility] [address] [place], [address] MCHC (RBC) [Mass/Vol] 32.8 g/dL Normal 32-36 [facility] Comment on above: Performed By: #### L 501.9985, L501.9520, L500.2500, L500.4100, L100.0100 ####[facility] [address] [place], [address] MCV (RBC) [Entitic vol] 96.6 fL Normal 81-99 [facility] Comment on above: Performed By: #### L 501.9985, L501.9520, L500.2500, L500.4100, L100.0100 ####[facility] [address] [place], [address] Monocytes/100 WBC (Bld) 9.5 % Normal 0-10 [facility] Comment on above: Performed By: #### L 501.9985, L501.9520, L500.2500, L500.4100, L100.0100 ####[facility] [address] [place], [address] Neutrophils/100 WBC (Bld) 79.9 % High 47-70 [facility] Comment on above: Performed By: #### L 501.9985, L501.9520, L500.2500, L500.4100, L100.0100 ####[facility] [address] [place], [address] Nucleated RBC (Bld) [#/Vol] 0 10*3/uL Normal 0-5 [facility] Comment on above: Performed By: #### L 501.9985, L501.9520, L500.2500, L500.4100, L100.0100 ####[facility] [address] [place], [address] Platelet mean volume (Bld) [Entitic vol] 10.6 fL Normal 6.2-12.0 [facility] Comment on above: Performed By: #### L 501.9985, L501.9520, L500.2500, L500.4100, L100.0100 ####[facility] [address] [place], [address] Platelets (Bld) [#/Vol] 225 10*3/uL Normal 150-450 [facility] Comment on above: Performed By: #### L 501.9985, L501.9520, L500.2500, L500.4100, L100.0100 ####[facility] [address] [place], [address] RBC (Bld) [#/Vol] 4.07 10*6/uL Low 4.2-5.4 [facility] Comment on above: Performed By: #### L 501.9985, L501.9520, L500.2500, L500.4100, L100.0100 ####[facility] [address] [place], [address] RDW SD 47.2 fl High 35.1-43.9 [facility] Comment on above: Performed By: #### L 501.9985, L501.9520, L500.2500, L500.4100, L100.0100 ####[facility] [address] [place], [address] WBC (Bld) [#/Vol] 7.6 10*3/uL Normal 4.4-11.0 [facility] Comment on above: Performed By: #### L 501.9985, L501.9520, L500.2500, L500.4100, L100.0100 ####[facility] [address] [place], [address] Calculated very low density lipoprotein (VLDL) cholesterol measurementOrdered By: Wilfredo Denton on 09-13-2024 Calculated very low density lipoprotein (VLDL) cholesterol measurement 14 mg/dL 5-40 [facility] VLDL Cholesterol 14 mg/dL -40 [facility] Echocardiogram study reportO rdered By: Genoveva Garcia on 09-13-2024 Study report [facility] [address] [facility] [place] [address] Echo Complete 09/13/24 1506 MR#: [id number] Acct: [id number] Name: PERNELL RODRIGUEZ Rep #:[id number] : 1960 64 From: Genoveva reaves MD Attending Dr: Dr. Guevara Collins MD Status: ADM IN Ordering Dr: Wilfredo Denton DO Date: Location: [facility] Sex: F C Admitted: 09/12/24 Reason For Study Reason For Study: TIA/CVA Procedure This was a 2D Doppler, Color Flow transthoracic echocardiogram. Exam performed portable in patient room. The exam was abbreviated due to the COVID 19 protocol. Left Ventricle Normal LV size. The estimated ejection fraction is 65 %. No evidence for diastolic dysfunction. No regional wall motion abnormalities noted. Right Ventricle Normal RV size. Normal systolic function. Atria The left and right atria are normal. Bubble contrast study is negative for PFO/ASD. No doppler evidence for ASD. Mitral Valve There is no mitral valve stenosis. Trivial mitral valve insufficiency. Tricuspid Valve There is no tricuspid stenosis. Trivial tricuspid valve insufficiency. Unable toestimate RV systolic pressure due to insufficient tricuspid regurgitant envelope. Aortic Valve Trisinus/trileaflet aortic valve. There is no aortic stenosis. No aortic valve insufficiency. Pulmonic Valve There is no pulmonic valvular stenosis. Trivial pulmonic valve insufficiency. Great Vessels Normal sized aortic root. Pericardium/Pleural No pericardial effusion. Medication Performed a rapid injection of agitated mix of 9 cc saline and 1cc air to assessfor atrial septal defect. MMode/2D Measurements & Calculations LVIDd: 4.5 cm IVSd: 1.3 cm LAV(MOD-sp4): 33.6 ml LVIDs: 3.0 cm LVPWd: 1.5 cm FS: 33.0 % LVAd ap4: 18.5 cm2 SV(MOD-sp4): 31.2 ml SV(sp4-el): 32.4 ml LVLd ap4: 6.6 cm SI(MOD-sp4): 14.1 ml/m2 EDV(MOD-sp4): 42.6 ml EDV(sp4-el): 43.5 ml LVAs ap4: 8.3 cm2 LVLs ap4: 5.3 cm ESV(MOD-sp4): 11.4 ml ESV(sp4-el): 11.1 ml EF(MOD-sp4): 73.3 % EF(sp4-el): 74.4 % LA A4 area: 13.8 cm2 LA dimension(2D): 4.5 cm RA A4 area: 14.8 cm2 ECHO/Echo Complete Interpretation Summary The estimated ejection fraction is 65 %. Trivial mitral valve insufficiency. Ordering Physician: Wilfredo Denton Referring Physician: HOMER BRADFORD Performed By: Munira Saldana RCS 09/13/24 1542 Date _ Genoveva Garcia MD CC: Dr. Wilfredo Denton DO; Dr. Homer Bradford MD; Dr. Guevara Collins MD ~ Date Dictated: 09/13/24 1506 Date Transcribed: 09/13/24 1542 Train Announcer: Signed [facility] Work Phone: Electrocardiogram reportOrde red By: Kam Turk on 09-13-2024 EKG study [facility] [address] [place] [address] 12 Lead EKG 09/12/24 1113 MR#: [id number] Acct: [id number] Name: PERNELL RODRIGUEZ Rep #:[id number] : 1960 64 From: Kam chan MD Attending Dr: Dr. Guevara Collins MD Status: ADM IN Ordering Dr: Randy Cabrales MD Date: Location: [facility] Sex: F C Admitted: 09/12/24 Test Reason : Blood Pressure : */* mmHG Vent. Rate : 93 BPM Atrial Rate : 93 BPM P-R Int : 162 ms QRS Dur : 88 ms QT Int : 360 ms P-R-T Axes : 57 0 61 degrees QTcB Int : 447 ms Normal sinus rhythm Normal ECG Confirmed by Kam Turk ([id number]), loan expeditor FLORES BOUCHER ([id number]) on 09/13/2024 9:33:48 AM Referred By: TA/TB Confirmed By: Kam Turk 09/13/24 0933 Date _ Kam Turk MD CC: Dr. Randy Cabrales MD; Dr. Homer Bradford MD; Dr. Guevara Collins MD ~ Signed [facility] Other Hemoglobin A1con 09-13-2024 HbA1c (Bld) [Mass fraction] 6.0 % Normal <=5.6 [facility] Comment on above: Performed By: #### L 501.9907, L501.2475, L500.2500, L500.4100, L100.0100 ####[facility] [address] [place], [address] Hemoglobin A1c percentageOrd ered By: Wilfredo Denton on 09-13-2024 HbA1c (Bld) [Mass fraction] 6.0 % >5.7 [facility] LDL calc ser/plasOrdered By: Wilfredo Denton on 09-13-2024 Cholesterol in LDL [Mass/Vol] 33 mg/dL [facility] LDL Cholesterol, Calculated 33 mg/dL [facility] Comment on above: Hwcoesfcxz=199-306 m g/dL & Higher Vgkw=309 mg/dL or greater Lipid Profileon 09-13-2024 CHOL:HDL 2.00 Normal [facility] Comment on above: Order Comment: Comme nts: NPO at [place] prior to lipid panel Performed By: #### L 501.9985, L501.9520, L500.2500, L500.4100, L100.0100 ####[facility] [address] [place], [address] Cholesterol [Mass/Vol] 94 mg/dL Normal <=200 [facility] Comment on above: Order Comment: Comme nts: NPO at [place] prior to lipid panel Result Comment: Chol esterol level, Desirable <200 mg/dLBorderline high cholesterol 200-239 mg/dLHigh cholesterol >=240 mg/dLRecommendations of the NCEP Adult Treatment Panel for thefollowing risk-cutoff thresholds for the [place] Americanpopulation. Performed By: #### L 501.9985, L501.9520, L500.2500, L500.4100, L100.0100 ####[facility] [address] [place], [address] Cholesterol in HDL [Mass/Vol] 47 mg/dL Normal [facility] Comment on above: Order Comment: Comme nts: NPO at [place] prior to lipid panel Result Comment: Licha onal Cholesterol Education Program (NCEP) guidelines:<40 mg/dL: Low HDL-cholesterol (major risk factor for CHD)>= 60 mg/dL: High HDL-cholesterol (negative risk factor forCHD)HDL-cholesterol is affected by a number of factors, e.g.smoking, exercise, hormones, sex and age. Performed By: #### L 501.9985, L501.9520, L500.2500, L500.4100, L100.0100 ####[facility] [address] [place], [address] Cholesterol in LDL [Mass/Vol] 33 mg/dL Normal [facility] Comment on above: Order Comment: Comme nts: NPO at [place] prior to lipid panel Result Comment: Bord umpzqr=834-867 mg/dL Higher Ymlv=856 mg/dL or greater Performed By: #### L 501.9985, L501.9520, L500.2500, L500.4100, L100.0100 ####[facility] [address] [place], [address] Cholesterol in VLDL [Mass/Vol] 14 mg/dL Normal 5-40 [facility] Comment on above: Order Comment: Comme nts: NPO at [place] prior to lipid panel Performed By: #### L 501.9985, L501.9520, L500.2500, L500.4100, L100.0100 ####[facility] [address] [place], [address] Triglyceride [Mass/Vol] 71 mg/dL Normal [facility] Comment on above: Order Comment: Comme nts: NPO at [place] prior to lipid panel Result Comment: The drugs N-Acetylcysteine and Metamizole may falselydepress this assay.Normal range: <150 mg/dLBorderline High: 150-199 mg/dLHigh: 200-499 mg/dLVery High: >500 mg/dL Performed By: #### L 501.9985, L501.9520, L500.2500, L500.4100, L100.0100 ####[facility] [address] [place], [address] MR/CON.PCM.NEon 09-13-2024 MR/CON.PCM.NE Normal [facility] Screening total cholesterol/ high density lipoprotein (HDL) cholesterol ratioOrdered By: Wilfredo Denton on 09-13-2024 Cholesterol.total/Choles terol in HDL [Mass ratio] 2.00 {ratio} [facility] Serum or plasma cholesterol in HDL measurement (mass/volume)Ordered By: Wilfredo Denton on 09-13-2024 Cholesterol in HDL [Mass/Vol] 47 mg/dL >40 [facility] Comment on above: National Cholesterol Education Program (NCEP) guidelines:<40 mg/dL: Low HDL-cholesterol (major risk factor for CHD)>= 60 mg/dL: High HDL-cholesterol (negative risk factor for CHD)HDL-cholesterol is affected by a number of factors, e.g. smoking, exercise, hormones, sex and age. Serum or plasma cholesterol measurement (mass/volume)Ordered By: Wilfredo Denton on 09-13-2024 Cholesterol [Mass/Vol] 94 mg/dL <201 [facility] Comment on above: Cholesterol level, D esirable <200 mg/dLBorderline high cholesterol 200-239 mg/dLHigh cholesterol >=240 mg/dLRecommendations of the NCEP Adult Treatment Panel for the following risk-cutoff thresholds for the [place] population. TSH DL <= 0.005 mIU/L QnOrde red By: Wilfredo Denton on 09-13-2024 Thyroid Stimulating Hormone (TSH) 0.483 uIU/mL 0.300-4.200 [facility] TSH Qn 0.483 uIU/mL 0.300-4.200 [facility] Thyroid Stim Hormone (TSH)on 09-13-2024 TSH 0.483 uIU/mL Normal 0.300-4.200 [facility] Comment on above: Order Comment: Comme nts: NPO at [place] prior to lipid panel Performed By: #### L 501.9958, L501.9520, L500.2500, L500.4100, L100.0100 ####[facility] [address] [place], [place], [id number] Triglycerides measurementOrd ered By: Wilfredo Denton on 09-13-2024 Triglyceride [Mass/Vol] 71 mg/dL <199 [facility] Comment on above: The drugs N-Acetylcy steine and Metamizole may falsely depress this assay. Normal range: <150 mg/dLBorderline High: 150-199 mg/dLHigh: 200-499 mg/dLVery High: >500 mg/dL Urine Cultureon 09-13-2024 URC Culture exhibits no growth. Normal [facility] Comment on above: Performed By: #### M 100.678, L400.0001, M100.2200 ####[facility] [address] [place], [place], [address] 12 Lead EKGon 09-12-2024 12 Lead EKG Normal [facility] Activated partial thrombopla stin time (aPTT) in platelet poor plasma by coagulation aOrdered By: Randy Cabrales on 09-12-2024 aPTT Coag (PPP) [Time] 30.9 s 24.1-36.2 [facility] Bedside Glucoseon 09-12-2024 FINGERSTICK GLU 141 mg/dL High 74-106 [facility] Comment on above: Result Comment: BJ RODRIGEZENT OF PATIENT CARE PER NURSING PROTOCOL Performed By: #### L 501.080 ####[facility] [address] [place], [place], [address] Bilirubin Test strip Ql (U)O rdered By: Randy Cabrales on 09-12-2024 Bilirubin Ql (U) Negative Negative [facility] Bilirubin, totalOrdered By: Randy Cabrales on 09-12-2024 Bilirubin [Mass/Vol] 0.69 mg/dL 0.00-1.30 [facility] Blood cultureOrdered By: Barrett Cabrales on 09-12-2024 Bacteria identified Cx Nom (Bld) No growth in 5 days. [facility] Bacteria identified Cx Nom (Bld) No growth in 5 days. [facility] Brain without Contraston Brain without Contrast Normal [facility] Brain/Head without Contrasto n 09-12-2024 Brain/Head without Contrast Normal [facility] CBC W/Diff, Automatedon 02-2 6-2025 Absolute Lymph 0.53 X10 3/uL Low 0.83-4.51 [facility] Comment on above: Performed By: #### L 300.4310, L100.0100, M200.1000, L300.3900, L500.4050, L503.6005 ####[facility] [address] [place], [address] Absolute Neut 7.7 X10 3/uL Normal 2.0-7.7 [facility] Comment on above: Performed By: #### L 300.4310, L100.0100, M200.1000, L300.3900, L500.4050, L503.6005 ####[facility] [address] [place], [address] Basophils/100 WBC (Bld) 0.2 % Normal 0-1 [facility] Comment on above: Performed By: #### L 300.4310, L100.0100, M200.1000, L300.3900, L500.4050, L503.6005 ####[facility] [address] [place], [address] Eosinophils/100 WBC (Bld) 0.1 % Normal 0-5 [facility] Comment on above: Performed By: #### L 300.4310, L100.0100, M200.1000, L300.3900, L500.4050, L503.6005 ####[facility] [address] [place], [address] Erythrocyte distribution width (RBC) [Ratio] 13.2 % Normal 11.6-14.6 [facility] Comment on above: Performed By: #### L 300.4310, L100.0100, M200.1000, L300.3900, L500.4050, L503.6005 ####[facility] [address] [place], [address] Hematocrit (Bld) [Volume fraction] 42.9 % Normal 37-47 [facility] Comment on above: Performed By: #### L 300.4310, L100.0100, M200.1000, L300.3900, L500.4050, L503.6005 ####[facility] [address] [place], [address] Hemoglobin (Bld) [Mass/Vol] 14.0 g/dL Normal 12.0-15.0 [facility] Comment on above: Performed By: #### L 300.4310, L100.0100, M200.1000, L300.3900, L500.4050, L503.6005 ####[facility] [address] [place], [address] IG% 0.300 Normal 0.0-0.9 [facility] Comment on above: Result Comment: IG% - Immature Granulocytes (promyelocytes, myelocytes andmetamyelocytes) > 1% indicates that a LEFT SHIFT is Present. Performed By: #### L 300.4310, L100.0100, M200.1000, L300.3900, L500.4050, L503.6005 ####[facility] [address] [place], [address] Lymphocytes/100 WBC (Bld) 5.9 % Low 19-41 [facility] Comment on above: Performed By: #### L 300.4310, L100.0100, M200.1000, L300.3900, L500.4050, L503.6005 ####[facility] [address] [place], [address] MCH (RBC) [Entitic mass] 31.4 pg Normal 27.0-32.0 [facility] Comment on above: Performed By: #### L 300.4310, L100.0100, M200.1000, L300.3900, L500.4050, L503.6005 ####[facility] [address] [place], [address] MCHC (RBC) [Mass/Vol] 32.6 g/dL Normal 32-36 [facility] Comment on above: Performed By: #### L 300.4310, L100.0100, M200.1000, L300.3900, L500.4050, L503.6005 ####[facility] [address] [place], [address] MCV (RBC) [Entitic vol] 96.2 fL Normal 81-99 [facility] Comment on above: Performed By: #### L 300.4310, L100.0100, M200.1000, L300.3900, L500.4050, L503.6005 ####[facility] [address] [place], [address] Monocytes/100 WBC (Bld) 8.4 % Normal 0-10 [facility] Comment on above: Performed By: #### L 300.4310, L100.0100, M200.1000, L300.3900, L500.4050, L503.6005 ####[facility] [address] [place], [address] Neutrophils/100 WBC (Bld) 85.1 % High 47-70 [facility] Comment on above: Performed By: #### L 300.4310, L100.0100, M200.1000, L300.3900, L500.4050, L503.6005 ####[facility] [address] [place], [address] Nucleated RBC (Bld) [#/Vol] 0 10*3/uL Normal 0-5 [facility] Comment on above: Performed By: #### L 300.4310, L100.0100, M200.1000, L300.3900, L500.4050, L503.6005 ####[facility] [address] [place], [address] Platelet mean volume (Bld) [Entitic vol] 10.4 fL Normal 6.2-12.0 [facility] Comment on above: Performed By: #### L 300.4310, L100.0100, M200.1000, L300.3900, L500.4050, L503.6005 ####[facility] [address] [place], [address] Platelets (Bld) [#/Vol] 231 10*3/uL Normal 150-450 [facility] Comment on above: Performed By: #### L 300.4310, L100.0100, M200.1000, L300.3900, L500.4050, L503.6005 ####[facility] [address] [place], [address] RBC (Bld) [#/Vol] 4.46 10*6/uL Normal 4.2-5.4 [facility] Comment on above: Performed By: #### L 300.4310, L100.0100, M200.1000, L300.3900, L500.4050, L503.6005 ####[facility] [address] [place], [address] RDW SD 47.2 fl High 35.1-43.9 [facility] Comment on above: Performed By: #### L 300.4310, L100.0100, M200.1000, L300.3900, L500.4050, L503.6005 ####[facility] [address] [place], [address] WBC (Bld) [#/Vol] 9.0 10*3/uL Normal 4.4-11.0 [facility] Comment on above: Performed By: #### L 300.4310, L100.0100, M200.1000, L300.3900, L500.4050, L503.6005 ####[facility] [address] [place], [address] Chest 1 View (Portable)on Chest 1 View (Portable) Normal [facility] Comprehensive Metabolic Prof ilon 09-12-2024 Albumin [Mass/Vol] 3.9 g/dL Normal 3.4-4.8 [facility] Comment on above: Performed By: #### L 300.4310, L100.0100, M200.1000, L300.3900, L500.4050, L503.6005 ####[facility] [address] [place], [address] Albumin/Globulin [Mass ratio] 1.5 {ratio} Normal 0.9-2.4 [facility] Comment on above: Performed By: #### L 300.4310, L100.0100, M200.1000, L300.3900, L500.4050, L503.6005 ####[facility] [address] [place], [address] ALK PHOS 78 U/L Normal 35-104 [facility] Comment on above: Performed By: #### L 300.4310, L100.0100, M200.1000, L300.3900, L500.4050, L503.6005 ####[facility] [address] [place], [address] ALT [Catalytic activity/Vol] 17 U/L Normal <=34 [facility] Comment on above: Performed By: #### L 300.4310, L100.0100, M200.1000, L300.3900, L500.4050, L503.6005 ####[facility] [address] [place], [address] Anion gap [Moles/Vol] 12 mmol/L Normal 5-15 [facility] Comment on above: Performed By: #### L 300.4310, L100.0100, M200.1000, L300.3900, L500.4050, L503.6005 ####[facility] [address] [place], [address] AST [Catalytic activity/Vol] 28 U/L Normal <=31 [facility] Comment on above: Performed By: #### L 300.4310, L100.0100, M200.1000, L300.3900, L500.4050, L503.6005 ####[facility] [address] [place], [address] Bilirubin [Mass/Vol] 0.69 mg/dL Normal 0.00-1.30 [facility] Comment on above: Performed By: #### L 300.4310, L100.0100, M200.1000, L300.3900, L500.4050, L503.6005 ####[facility] [address] [place], [address] BUN/CRE 10.2 RATIO Normal 10-20 [facility] Comment on above: Performed By: #### L 300.4310, L100.0100, M200.1000, L300.3900, L500.4050, L503.6005 ####[facility] [address] [place], [address] Calcium [Mass/Vol] 9.0 mg/dL Normal 7.6-11.0 [facility] Comment on above: Performed By: #### L 300.4310, L100.0100, M200.1000, L300.3900, L500.4050, L503.6005 ####[facility] [address] [place], [address] Chloride [Moles/Vol] 103 mmol/L Normal 96-108 [facility] Comment on above: Performed By: #### L 300.4310, L100.0100, M200.1000, L300.3900, L500.4050, L503.6005 ####[facility] [address] [place], [address] CO2 [Moles/Vol] 24.2 mmol/L Normal 22.0-29.0 [facility] Comment on above: Performed By: #### L 300.4310, L100.0100, M200.1000, L300.3900, L500.4050, L503.6005 ####[facility] [address] [place], [address] Creatinine [Mass/Vol] 1.4 mg/dL High 0.6-1.0 [facility] Comment on above: Performed By: #### L 300.4310, L100.0100, M200.1000, L300.3900, L500.4050, L503.6005 ####[facility] [address] [place], [address] ECRCL 53.30 ml/min Normal [facility] Comment on above: Performed By: #### L 300.4310, L100.0100, M200.1000, L300.3900, L500.4050, L503.6005 ####[facility] [address] [place], [address] GFR/1.73 sq M.predicted among non-blacks MDRD (S/P/Bld) [Vol rate/Area] 44 mL/min/{1.73_m2} Low >60 [facility] Comment on above: Result Comment: mL/m in/1.73m2 CKD-EPI Creatinine Equation (2020) Performed By: #### L 300.4310, L100.0100, M200.1000, L300.3900, L500.4050, L503.6005 ####[facility] [address] [place], [address] Globulin (S) [Mass/Vol] 2.6 g/dL Normal 2.2-4.2 [facility] Comment on above: Performed By: #### L 300.4310, L100.0100, M200.1000, L300.3900, L500.4050, L503.6005 ####[facility] [address] [place], [address] Glucose [Mass/Vol] 117 mg/dL High 70-99 [facility] Comment on above: Performed By: #### L 300.4310, L100.0100, M200.1000, L300.3900, L500.4050, L503.6005 ####[facility] [id number] [place], [address] Potassium [Moles/Vol] 3.6 mmol/L Normal 3.3-5.1 [facility] Comment on above: Performed By: #### L 300.4310, L100.0100, M200.1000, L300.3900, L500.4050, L503.6005 ####[facility] [id number] [place], [address] Sodium [Moles/Vol] 139 mmol/L Normal 133-145 [facility] Comment on above: Performed By: #### L 300.4310, L100.0100, M200.1000, L300.3900, L500.4050, L503.6005 ####[facility] [address] [place], [address] T PROT 6.5 g/dL Normal 5.9-8.4 [facility] Comment on above: Performed By: #### L 300.4310, L100.0100, M200.1000, L300.3900, L500.4050, L503.6005 ####[facility] [address] [place], [address] Urea nitrogen [Mass/Vol] 14 mg/dL Normal 4-19 [facility] Comment on above: Performed By: #### L 300.4310, L100.0100, M200.1000, L300.3900, L500.4050, L503.6005 ####[facility] [address] [place], [address] Echo Completeon 09-12-2024 Echo Complete Normal [facility] Emergency Department Summary on 09-12-2024 Emergency Department Summary Normal [facility] Epithelial cells.squamous LM Ql (Urine sed)Ordered By: Randy Cabrales on 09-12-2024 Epithelial cells.squamous LM.HPF (Urine sed) [#/Area] 0 /[HPF] 5-10 [facility] Glucose Ql (U)Ordered By: Garry Cabrales on 09-12-2024 Urine Glucose (UA) Normal mg/dl Normal [facility] H AND P Exam - Hospitaliston 09-12-2024 H&P Exam - Hospitalist [facility] Influenza virus A and B and SARS-CoV-2 (COVID-19) and Respiratory syncytial virus RNAOrdered By: Randy Cabrales on 09-12-2024 SARS-CoV-2 (COVID-19) RNA GERARDO+probe Ql (Unsp spec) SARS-CoV-2 (COVID 19) Abnormal [facility] SARS-CoV-2 (COVID-19) RNA GERARDO+probe Ql (Unsp spec) SARS-CoV-2 (COVID 19) Abnormal [facility] International normalized rat io (INR) calculationOrdered By: Randy Cabrales on 09-12-2024 INR Coag (Bld) [Relative time] 1.3 {INR} [facility] Ketones Test strip Ql (U)Ord ered By: Randy Cabrales on 09-12-2024 Ketones Ql (U) Negative Negative [facility] L499.0042on 09-12-2024 Trop T Delta 4 Normal [facility] Comment on above: Result Comment: If c linical suspicion for ACS is high, suggest getting athird troponin. Otherwise, stress test or CTCA. Performed By: #### L 499.0042 ####[facility] [address] [place], [address] Trop T High Sen 19 ng/L High <=14 [facility] Comment on above: Performed By: #### L 499.0042 ####[facility] [address] [place], [address] L499.0043on 09-12-2024 Trop T Delta 3 Normal [facility] Comment on above: Result Comment: Down stream testing and, if negative, consider otheretiologies for elevated troponin. Performed By: #### L 499.0043 ####[facility] [address] [place], [address] Trop T High Sen 20 ng/L High <=14 [facility] Comment on above: Performed By: #### L 499.0043 ####[facility] [address] [place], [place], [address] L501.4021on 09-12-2024 Trop T High Sen 23 ng/L High <=14 [facility] Comment on above: Performed By: #### L 501.4021 ####[facility] [address] [place], [address] L503.7505on 09-12-2024 Natriuretic peptide B (Bld) [Mass/Vol] 130 pg/mL Normal <=900 [facility] Comment on above: Result Comment: Hear t Failure Unlikely: < 300 pg/mLHeart Failure Likely< 50 Years: > 450 pg/mL50-75 Years: > 900 pg/mL>75 Years: > 1800 pg/mL HF Unlikely: <300 pg/mL HF Likely: <50 years: >450 pg/mL 50 - 75 years: >900 pg/mL >75 years: >1800 pg/mL Performed By: #### L 503.7505 ####[facility] [address] [place], [place], [id number] Laboratory - Chemistry and C hemistry - challengeOrdered By: Randy Cabrales on 09-12-2024 AST [Catalytic activity/Vol] 28 U/L <32 [facility] Natriuretic peptide B (Bld) [Mass/Vol] 130 pg/mL <900 [facility] Comment on above: Heart Failure Unlike ly: < 300 pg/mLHeart Failure Likely< 50 Years: > 450 pg/mL50-75 Years: > 900 pg/mL>75 Years: > 1800 pg/mL HF Unlikely: <300 pg/mL HF Likely: <50 years: >450 pg/mL 50 - 75 years: >900 pg/mL >75 years: >1800 pg/mL Lactic Acidon 09-12-2024 Lactate [Moles/Vol] 1.6 mmol/L Normal 0.0-2.0 [facility] Comment on above: Order Comment: Y Performed By: #### L 300.4310, L100.0100, M200.1000, L300.3900, L500.4050, L503.6005 ####[facility] [address] [place], [address] Lactic acid measurementOrder ed By: Randy Cabrales on 09-12-2024 Lactate [Moles/Vol] 1.6 mmol/L 0.0-2.0 [facility] M100.678on 09-12-2024 M100.678 Normal [facility] Comment on above: Performed By: #### M 100.678, L400.0001, M100.2200 ####[facility] [address] [place], [address] MRA Head ONLY without Contra ston 09-12-2024 MRA Head ONLY without Contrast Normal [facility] MRA Neck without Contraston 09-12-2024 MRA Neck without Contrast Normal [facility] Magnetic resonance imaging r eportOrdered By: Elijah Rodriguez on 09-12-2024 Study report [facility] Imaging Services [address] [place], [place] [address] Brain without Contrast MR#: [id number] Acct: [id number] Name: PERNELL RODRIGUEZ CHEKO Rep #: [id number] 1 : 1960 F 64 From: Thuy Rodriguez DO PCP: Dr. Homer Bradford MD Status: ADM IN Study:Brain without Contrast Date of Exam: 09/12/24 Exam# [id number] Ordering Dr: Wilfredo Denton DO PROCEDURE: Noncontrast MRI of the brain. REASON FOR EXAM: Stroke. TECHNIQUE: Multiplanar, multisequence MRI images of the brain were obtained without IV contrast. COMPARISON: Noncontrast CT of the brain from the same day FINDINGS: Some sequences are suboptimal due to motion artifact. Bones of the calvarium are intact. Extracranial soft tissues show no specific abnormality. Included upper cervical spinal cord unremarkable. There is a partially empty sella. The orbits, sella, and parasellar structures are grossly unremarkable. Mastoid air cells are clear. Minimal partial opacification right maxillary sinus and ethmoid air cells. No paranasal sinus air-fluid levels. No extra-axial fluid collection or midline shift. The yung-white matter differentiation is maintained. The ventricles are normal in caliber and configuration. Basilar cisterns are clear. No areas of restricted diffusion. There is some mild patchy areas of increased T2/FLAIR signal involving the deep and subcortical white matter of the frontal lobes. The cerebellar tonsils are low lying, extending to the level of the foramen magnum. MRI/Brain without Contrast IMPRESSION: No acute intracranial abnormality. No evidence of acute infarction to correspond to the area of decreased attenuation in the left basal ganglia on same day noncontrast head CT. This may represent a prominent perivascular space. Patchy white matter hyperintensities in both cerebral hemispheres as above, which may be on the basis of chronic small-vessel ischemic disease. Mild paranasal sinus disease, as above. Partially empty sella. Reading Location: [facility] CC: Dr. Wilfredo Denton DO; Dr. Homer Bradford MD ~ Train Announcer: Signed [facility] Study report [facility] Imaging Services [address] [place] [id number] MRA Neck without Contrast MR#: [id number] Acct: [id number] Name: PERNELL RODRIGUEZ Rep #: [id number] : 1960 F 64 From: Thuy Rodriguez DO PCP: Dr. Homer Bradford MD Status: ADM IN Study:MRA Neck without Contrast Date of Exam: 09/12/24 Exam# [id number] Ordering Dr: Wilfredo Denton DO PROCEDURE: Noncontrast MRA of the neck. REASON FOR EXAM: Stroke. Abnormal head CT TECHNIQUE: Axial 2D ucoc-ox-fenetm noncontrast MRA images of the neck were obtained. Multiplanar reformatted images were created and reviewed. COMPARISON: None. FINDINGS: The left vertebral artery is dominant. Both vertebral arteries appear patent tothe skull base. The origins of the arch vessels are grossly patent, although evaluation is limited on this study. The examination is suboptimal due to artifact. The common carotid arteries appear patent to the bifurcations. There appears to be less than 50% stenosis of the carotid bulbs and proximal internal carotid arteries. Both internal carotid arteries appear to be patent. MRI/MRA Neck without Contrast IMPRESSION: Suboptimal examination due to artifact. There appears to be less than 50% stenosis of the carotid bulbs and proximal internal carotid arteries, although evaluation of the left carotid bulb and proximal leftinternal carotid artery is less than ideal. Follow-up contrast-enhanced CTA evaluation may be considered for more accurate evaluation of the carotid bulbs and proximal internal carotid arteries. Both vertebral arteries appear to be patent. [facility] CC: Dr. Wilfredo Denton DO; Dr. Homer Bradford MD ~ Train Announcer: Signed [facility] Study report [facility] Imaging Services [address] [place] [id number] MRA Head ONLY without Contrast MR#: [id number] Acct: [id number] Name: PERNELL RODRIGUEZ Rep #: [id number] : 1960 F 64 From: Thuy Rodriguez DO PCP: Dr. Homer Bradford MD Status: ADM IN Study:MRA Head ONLY without Contrast Date of Exam: 09/12/24 Exam# [id number] Ordering Dr: Wilfredo Denton DO PROCEDURE: Noncontrast MRA of the neck. REASON FOR EXAM: Stroke. Abnormal head CT. COMPARISON: Noncontrast CT brain 09/12/2024 TECHNIQUE: Axial contiguous axial MRA images of the brain were obtained without IV contrast. Multi planar reformatted images were created and reviewed. FINDINGS: The basilar and distal vertebral arteries are patent. There is persistent fetalorigin of the right posterior cerebral artery. The major components of the posterior circulation are grossly patent, although detail is limited. Diminutive caliber of the distal right vertebral artery may be congenital/developmen asif. The distal internal carotid arteries are patent. The major components of the anterior circulation are patent, without focal aneurysm formation or hemodynamically significant stenosis. MRI/MRA Head ONLY without Contrast IMPRESSION: Diminutive caliber of the distal right vertebral artery may be congenital or developmental. Otherwise, negative MRA of the brain. Persistent origin of the right posterior cerebral artery. Reading Location: [facility] CC: Dr. Wilfredo Denton DO; Dr. Homer Bradford MD ~ Train Announcer: Signed [facility] Microscopic analysis of urin e for red blood cells (RBC)Ordered By: Randy Cabrales on 09-12-2024 Urine RBC 0-5 SEEN /hpf 0-5 [facility] Mucus LM Ql (Urine sed)Order ed By: Randy Cabrales on 09-12-2024 Mucus Ql (Urine sed) 0 SEEN /hpf [facility] Nitrite Test strip Ql (U)Ord ered By: Randy Cabrales on 09-12-2024 Nitrite Ql (U) Negative Negative [facility] No Panel InformationOrdered By: Randy Cabrales on 09-12-2024 Delta Troponin T 4 [facility] Comment on above: If clinical suspicio n for ACS is high, suggest getting a third troponin. Otherwise, stress test or CTCA. 4 [facility] Troponin T High Sensitivity 23 ng/L High <14 [facility] 23 ng/L High <14 [facility] 28 U/L <32 [facility] 130 pg/mL <900 [facility] Partial Thromboplast Timeon 09-12-2024 aPTT Coag (Bld) [Time] 30.9 s Normal 24.1-36.2 [facility] Comment on above: Performed By: #### L 300.4310, L100.0100, M200.1000, L300.3900, L500.4050, L503.6005 ####[facility] [address] [place], [place], [id number] Protein Test strip Ql (U)Ord ered By: Randy Cabrales on 09-12-2024 Protein Ql (U) Negative Negative [facility] Prothrombin Time w/INRon INR Coag (PPP) [Relative time] 1.3 {INR} Normal [facility] Comment on above: Performed By: #### L 300.4310, L100.0100, M200.1000, L300.3900, L500.4050, L503.6005 ####[facility] [address] [place], [place], [phone] PT Coag (PPP) [Time] 16.1 s High 11.7-14.9 [facility] Comment on above: Performed By: #### L 300.4310, L100.0100, M200.1000, L300.3900, L500.4050, L503.6005 ####[facility] [address] [place], [place], [id number] Prothrombin timeOrdered By: Randy Cabrales on 09-12-2024 PT Coag (PPP) [Time] 16.1 s High 11.7-14.9 [facility] Serum globulin measurementOr dered By: Randy Cabrales on 09-12-2024 Globulin (S) [Mass/Vol] 2.6 g/dL 2.2-4.2 [facility] Serum or plasma alanine obregon otransferase (ALT) measurementOrdered By: Randy Cabrales on 09-12-2024 ALT [Catalytic activity/Vol] 17 U/L <35 [facility] Serum or plasma albumin dane urement (mass/volume)Ordered By: Randy Cabrales on 09-12-2024 Albumin [Mass/Vol] 3.9 g/dL 3.4-4.8 [facility] Serum or plasma albumin/glob ulin mass ratioOrdered By: Randy Cabrales on 02-26-2025 Albumin/Globulin [Mass ratio] 1.5 {ratio} 0.9-2.4 [facility] Serum or plasma alkaline ruddy sphatase measurementOrdered By: Randy Cabrales on 09-12-2024 ALP [Catalytic activity/Vol] 78 U/L 35-104 [facility] Squamous epithelial cells de tection in urine sediment by light microscopyOrdered By: Randy Cabrales on 09-12-2024 Epithelial cells.squamous LM Ql (Urine sed) 0 SEEN /hpf 5-10 [facility] Total proteinOrdered By: Barrett Cabrales on 09-12-2024 Protein [Mass/Vol] 6.5 g/dL 5.9-8.4 [facility] Troponin T.cardiac High sens itivity method [Mass/Vol]Ordered By: Randy Cabrales on 09-12-2024 Troponin T High Sensitivity 4 Hour 20 ng/L High <14 [facility] Troponin T High Sensitivity 2 Hour 19 ng/L High <14 [facility] Troponin T.cardiac [Mass/vol ume] in Serum or Plasma by High sensitivity methodOrdered By: Randy Cabrales on 09-12-2024 Troponin T.cardiac High sensitivity method [Mass/Vol] 20 ng/L High <14 [facility] Troponin T.cardiac High sensitivity method [Mass/Vol] 19 ng/L High <14 [facility] Urinalysis, Completeon 09-12 RBC 0-5 SEEN Normal 0-5 [facility] Comment on above: Order Comment: BRUCE CTOR TO SPECIFY Performed By: #### M 100.678, L400.0001, M1 ####[facility] [address] [place], [place], [address] BACTERIA 0 SEEN Normal None Seen [facility] Comment on above: Order Comment: BRUCE CTOR TO SPECIFY Performed By: #### M 100.678, L400.0001, M1 ####[facility] [address] [place], [address] EPI,SQUAMOUS 0 SEEN Normal 5-10 [facility] Comment on above: Order Comment: BRUCE CTOR TO SPECIFY Performed By: #### M 100.678, L400.0001, M1.2200 ####[facility] [address] [place], [address] Mucus Ql (Urine sed) 0 SEEN Normal [facility] Comment on above: Order Comment: COLLE CTOR TO SPECIFY Performed By: #### M 100.678, L400.0001, M100.2200 ####[facility] [address] [place], [address] WBC 0 SEEN Normal 0-5 [facility] Comment on above: Order Comment: COLLE CTOR TO SPECIFY Performed By: #### M 100.678, L400.0001, M100.2200 ####[facility] [address] [place], [address] Urine blood detectionOrdered By: Randy Cabrales on 09-12-2024 Urine Occult Blood 50 /ul High Negative [facility] Urine clarityOrdered By: Barrett Cabrales on 09-12-2024 Clarity (U) Clear Clear [facility] Urine color determinationOrd ered By: Randy Cabrales on 09-12-2024 Color (U) Yellow Yellow [facility] Urine cultureOrdered By: Barrett Cabrales on 09-12-2024 Bacteria identified Cx Nom (U) Culture exhibits no growth. [facility] Bacteria identified Cx Nom (U) Culture exhibits no growth. [facility] Urine glucose detectionOrder ed By: Randy Cabrales on 09-12-2024 Glucose Ql (U) Normal mg/dl Normal [facility] Urine leukocyte esterase det ection by dipstickOrdered By: Randy Cabrales on 09-12-2024 Leukocyte esterase Test strip Ql (U) Negative Negative [facility] Urine pHOrdered By: Randy gale on 09-12-2024 pH (U) 6.0 [pH] 5.0 - 8.0 [facility] Urine sediment bacteria coun t by microscopy (number/high power field)Ordered By: Randy Cabrales on 09-12-2024 Bacteria LM.HPF (Urine sed) [#/Area] 0 /[HPF] None Seen [facility] Urine specific gravity measu rementOrdered By: Randy Cabrales on 09-12-2024 Specific gravity (U) [Rel density] 1.010 1.002-1.030 [facility] Urine urobilinogen measureme ntOrdered By: Randy Cabrales on 09-12-2024 Urobilinogen Ql (U) Normal mg/dl Normal [facility] Urobilinogen Ql (U)Ordered B y: Randy Cabrales on 09-12-2024 Urine Urobilinogen Normal mg/dl Normal [facility] White blood cell countOrdere d By: Randy Cabrales on 09-12-2024 Urine WBC 0 SEEN /hpf 0-5 [facility] White blood cell count 0 SEEN /hpf 0-5 [facility] aPTT Coag (PPP) [Time]Ordere d By: Randy Cabrales on 09-12-2024 aPTT Coag (Bld) [Time] 30.9 s 24.1-36.2 [facility] Thin prep Papanicolaou smear with manual screeningOrdered By: Jennifer Alba on 11-24-2023 Thin prep Papanicolaou smear with manual screening 104 mg/dL 74-106 [facility] Comment on above: MANAGEMENT OF PATIEN T CARE PER NURSING PROTOCOL Basophil percentageOrdered B y: Jennifer Alba on 11-15-2023 Chloride [Moles/Vol] 107 mmol/L 98-107 [facility] Glucose [Mass/Vol] 108 mg/dL 74-106 [facility] Comment on above: Fasting Glucose resu lt from 100 to 125 mg/dL suggests IMPAIRED HOMEOSTASIS per A.D.A. criteria. Hemoglobin (Bld) [Mass/Vol] 15.9 g/dL 12.0-15.0 [facility] Potassium [Moles/Vol] 4.0 mmol/L 3.5-5.1 [facility] Comment on above: Slight Hemolysis, Re sult may be falsely increased. Sodium [Moles/Vol] 140 mmol/L 136-145 [facility] WBC (Bld) [#/Vol] 10.6 10*3/uL 4.4-11.0 [facility] Determination of erythrocyte mean corpuscular volume (MCV)Ordered By: Jennifer Alba on 11-15-2023 MCV (RBC) [Entitic vol] 97.6 fL 81-99 [facility] Erythrocyte distribution wid th ratioOrdered By: Jennifer Alba on 11-15-2023 Erythrocyte distribution width (RBC) [Ratio] 13.0 % 11.6-14.6 [facility] Erythrocyte distribution wid th standard deviationOrdered By: Jennifer Alba on 11-15-2023 Erythrocyte distribution width (RBC) [Entitic vol] 46.0 fL 35.1-43.9 [facility] Hematocrit Auto (Bld) [Volum e fraction]Ordered By: Jennifer Alba on 11-15-2023 Hematocrit (Bld) [Volume fraction] 48.2 % 37-47 [facility] Laboratory - Chemistry and C hemistry - challengeOrdered By: Jennifer Alba on 11-15-2023 CO2 [Moles/Vol] 27.0 mmol/L 21.0-32.0 [facility] Urea nitrogen/Creatinine [Mass ratio] 14.4 mg/mg 10-20 [facility] Laboratory - Hematology and Cell countsOrdered By: Jennifer Alba on 11-15-2023 MCH (RBC) [Entitic mass] 32.2 pg 27.0-32.0 [facility] MCHC (RBC) [Mass/Vol] 33.0 g/dL 32-36 [facility] Platelet mean volume (Bld) [Entitic vol] 10.9 fL 6.2-12.0 [facility] Platelets (Bld) [#/Vol] 264 10*3/uL 150-450 [facility] No Panel InformationOrdered By: Jennifer Alba on 11-15-2023 Estimated GFR (MDRD) Amer 37 mL/min >60 [facility] Comment on above: GFR Calc Estimated GFR (MDRD) Non-Af Amer 30 mL/min >60 [facility] Comment on above: Non- GFR Calc RBC Auto (Bld) [#/Vol]Ordere d By: Jennifer Alba on 11-15-2023 RBC (Bld) [#/Vol] 4.94 10*6/uL 4.2-5.4 [facility] Serum or plasma calcium dane urement (mass/volume)Ordered By: Jennifer Alba on 11-15-2023 Calcium [Mass/Vol] 9.1 mg/dL 8.5-10.1 [facility] Serum or plasma creatinine m easurement (mass/volume)Ordered By: Jennifer Alba on 11-15-2023 Creatinine [Mass/Vol] 1.81 mg/dL 0.55-1.02 [facility] Comment on above: The validity of the calculated GFR & GFRAA in patients over 70 years has not been determined. Clinical correlation is essential. Serum or plasma urea nitroge n measurement (mass/volume)Ordered By: Jennifer Alba on 11-15-2023 Urea nitrogen [Mass/Vol] 26 mg/dL 7-18 [facility] Thin prep Papanicolaou smear with manual screeningOrdered By: Jennifer Alba on 11-15-2023 Thin prep Papanicolaou smear with manual screening 6 5-15 [facility] Large Joint Arthro/Inj: L anupama simon jointon 11-11-2023 Jarod Godwin V, DO 11/11/2023 2:28 PM Large Joint Arthro/Inj: L shoulder joint Informed Consent Consent Obtained: Verbal [place] Protocol A moment to CARE was completed. SIGN IN TIME OUT 11/11/2023 2:25 PM The procedure site was prepped in the usual sterile fashion. Site: L shoulder joint Medications: 6 mg betamethasone acetate-betamethasone sodium phosphate 6 mg/mL Anesthetics: 4 mL lidocaine (PF) 10 mg/mL (1 %); 4 mL BUPivacaine (PF) 0.5 % (5 mg/mL) Outcome: Post-injection instructions were reviewed with the patient and the patient voiced understanding of these instructions. [facility] ALBUMIN/CREAT RATIO RND URon 09-27-2023 Albumin DL <= 20 mg/L (U) [Mass/Vol] [facility] Albumin/Creatinine (U) [Mass ratio] <30 mg/g [facility] Creatinine (U) [Mass/Vol] 165.2 mg/dL 20.0 - 300.0 mg/dL [facility] CBC W Auto Differential pane l (Bld)on 09-27-2023 Basophils (Bld) [#/Vol] 0.03 10*3/uL <0.11 k/uL [facility] Basophils/100 WBC (Bld) 0.4 % [facility] Differential cell count method Nom (Bld) Auto [facility] Eosinophils (Bld) [#/Vol] 0.19 10*3/uL <0.46 k/uL [facility] Eosinophils/100 WBC (Bld) 2.5 % [facility] Erythrocyte distribution width (RBC) [Ratio] 13.1 % 11.5 - 15.0 % [facility] Hematocrit (Bld) [Volume fraction] 46.7 % High 36.0 - 46.0 % [facility] Hemoglobin (Bld) [Mass/Vol] 15.2 g/dL 11.5 - 15.5 g/dL [facility] Immature granulocytes (Bld) [#/Vol] <0.10 k/uL [facility] Immature granulocytes/100 WBC (Bld) 0.3 % [facility] Lymphocytes (Bld) [#/Vol] 2.36 10*3/uL 1.00 - 4.00 k/uL [facility] Lymphocytes/100 WBC (Bld) 30.9 % [facility] MCH (RBC) [Entitic mass] 31.9 pg 26. 0 - 34.0 pg [facility] MCHC (RBC) [Mass/Vol] 32.5 g/dL 30.5 - 36.0 g/dL [facility] MCV (RBC) [Entitic vol] 97.9 fL 80.0 - 100.0 fL [facility] Monocytes (Bld) [#/Vol] 0.82 10*3/uL <0.87 k/uL [facility] Monocytes/100 WBC (Bld) 10.7 % [facility] Neutrophils (Bld) [#/Vol] 4.22 10*3/uL 1.45 - 7.50 k/uL [facility] Neutrophils/100 WBC (Bld) 55.2 % [facility] Nucleated RBC (Bld) [#/Vol] <0.01 k/uL [facility] Nucleated RBC/100 WBC (Bld) [Ratio] 0.0 /100 WBC [facility] Platelet mean volume (Bld) [Entitic vol] 11.0 fL 9.0 - 12.7 fL [facility] Platelets (Bld) [#/Vol] 276 10*3/uL 150 - 400 k/uL [facility] RBC (Bld) [#/Vol] 4.77 10*6/uL 3.90 - 5.2 0 m/uL [facility] WBC (Bld) [#/Vol] 7.64 10*3/uL 3.70 - 11.00 k/uL [facility] Comprehensive metabolic 2000 panelon 09-27-2023 Albumin [Mass/Vol] 4.0 g/dL 3.9 - 4.9 g/dL [facility] ALP [Catalytic activity/Vol] 67 U/L 34 - 123 U/L [facility] ALT [Catalytic activity/Vol] 19 U/L 7 - 38 U/L [facility] Anion gap [Moles/Vol] 11 mmol/L 9 - 18 mmol/L [facility] AST [Catalytic activity/Vol] 25 U/L 13 - 35 U/L [facility] Bilirubin [Mass/Vol] 0.4 mg/dL 0.2 - 1 .3 mg/dL [facility] Calcium [Mass/Vol] 9.2 mg/dL 8.5 - 10. 2 mg/dL [facility] Chloride [Moles/Vol] 103 mmol/L 97 - 10 5 mmol/L [facility] CO2 [Moles/Vol] 27 mmol/L 22 - 30 mmol/L [facility] Creatinine [Mass/Vol] 1.66 mg/dL High 0.58 - 0.96 mg/dL [facility] Estimated Glomerular Filtration Rate 35 mL/min/1.73m Low >=60 mL/min/1.73 m [facility] Glucose [Mass/Vol] 99 mg/dL 74 - 99 mg/dL [facility] Potassium [Moles/Vol] 4.1 mmol/L 3.7 - 5.1 mmol/L [facility] Protein [Mass/Vol] 6.8 g/dL 6.3 - 8.0 g/dL [facility] Sodium [Moles/Vol] 141 mmol/L 136 - 144 mmol/L [facility] Urea nitrogen [Mass/Vol] 18 mg/dL 7 - 21 mg/dL [facility] LIPID PANEL, NONFASTINGon Cholesterol [Mass/Vol] 161 mg/dL <200 mg/dL [facility] HDL Cholesterol, Nonfasting 44 mg/dL >39 mg/dL [facility] LDL Cholesterol, Nonfasting 87 mg/dL <100 mg/dL [facility] LDL/HDL Ratio, Nonfasting 1.98 mg/dL <2.54 mg/dL [facility] Non HDL Cholesterol, Nonfasting 117 mg/dL <130 mg/dL [facility] Total Chol/HDL Ratio, Nonfasting 3.66 mg/dL <5.10 mg/dL [facility] Triglycerides, Nonfasting 152 mg/dL High <150 mg/dL [facility] VLDL Cholesterol, Nonfasting 30 mg/dL High <30 mg/dL [facility] Urinalysis complete panel (U )on 09-27-2023 Bacteria uL 2677.7 uL High Negative uL [facility] Bilirubin Ql (U) Negative Negative [facility] Calcium Oxalate Crystals Few Abnormal Non e Seen /HPF [facility] Clarity (Unsp spec) Clear Clear [facility] Color (U) Yellow Yellow [facility] Epithelial cells LM.HPF (Urine sed) [#/Area] Few [facility] Glucose Test strip (U) [Mass/Vol] Negative Negative [facility] Hemoglobin Ql (U) Negative Negative [facility] Hyaline casts (Urine sed) [#/Area] 1-3 /LPF Abnormal 0 /LPF [facility] Ketones Ql (U) Negative Negative [facility] Leukocyte esterase Test strip Ql (U) 1+ Abnormal Negative [facility] Nitrite Ql (U) Negative Negative [facility] pH (U) 5.5 [pH] <8.5 [facility] Protein (U) [Mass/Vol] Negative Negative [facility] RBC LM.HPF (Urine sed) [#/Area] 3-5 /HPF Abnormal 0-2 /HPF [facility] Specific gravity (U) [Rel density] 1.017 1.005 - 1.030 [facility] Urobilinogen Ql (U) 1.0 EU/dL 0.2-1.0 EU/dL [facility] WBC LM.HPF (Urine sed) [#/Area] 11-20 /HPF Abnormal 0-5 /HPF [facility] Absolute lymphocyte countOrd ered By: Marvel Pierce on 03-28-2023 Lymphocytes Auto (Unsp spec) [#/Vol] 3.15 10*3/uL 0.83-4.51 [facility] Basophil percentageOrdered B y: Marvel Pierce on 03-28-2023 Basophils/100 WBC (Bld) 0.4 % 0-1 [facility] Eosinophils/100 WBC (Bld) 2.5 % 0-5 [facility] Neutrophils (Bld) [#/Vol] 5.6 10*3/uL 2.0-7.7 [facility] Neutrophils/100 WBC (Bld) 56.0 % 47-70 [facility] WBC (Bld) [#/Vol] 9.9 10*3/uL 4.4-11.0 [facility] Blood erythrocytes count (nu mber/volume)Ordered By: Marvel Pierce on 03-28-2023 RBC (Bld) [#/Vol] 4.49 10*6/uL 4.2-5.4 [facility] Blood hemoglobin measurement (mass/volume)Ordered By: Marvel Pierce on 03-28-2023 Hemoglobin (Bld) [Mass/Vol] 14.4 g/dL 12.0-15.0 [facility] Blood lymphocytes/100 leukoc ytesOrdered By: Marvel Pierce on 03-28-2023 Lymphocytes/100 WBC (Bld) 31.7 % 19-41 [facility] Blood monocytes/100 leukocyt esOrdered By: Marvel Pierce on 03-28-2023 Monocytes/100 WBC (Bld) 9.2 % 0-10 [facility] Blood platelet mean volumeOr dered By: Marvel Pierce on 03-28-2023 Platelet mean volume (Bld) [Entitic vol] 10.3 fL 6.2-12.0 [facility] Determination of erythrocyte mean corpuscular volume (MCV)Ordered By: Marvel Pierce on 03-28-2023 MCV (RBC) [Entitic vol] 100.2 fL 81-99 [facility] Hematocrit Auto (Bld) [Volum e fraction]Ordered By: Marvel Pierce on 03-28-2023 Hematocrit (Bld) [Volume fraction] 45.0 % 37-47 [facility] INR in Blood by Coagulation assayOrdered By: Marvel Pirece on 03-28-2023 INR Coag (Bld) [Relative time] 1.0 {INR} [facility] Laboratory - CoagulationOrde red By: Marvel Pierce on 03-28-2023 aPTT Coag (Bld) [Time] 27.9 s 24.1-36.2 [facility] PT Coag (PPP) [Time] 12.8 s 11.7-14.9 [facility] - Hematology and Cell countsOrdered By: Marvel Pierce on 03-28-2023 Erythrocyte distribution width (RBC) [Entitic vol] 49.8 fL 35.1-43.9 [facility] Erythrocyte distribution width (RBC) [Ratio] 13.4 % 11.6-14.6 [facility] Immature granulocytes/100 WBC (Bld) 0.200 % 0.0-0.9 [facility] Comment on above: IG% - Immature Granu locytes (promyelocytes, myelocytes and metamyelocytes) > 1% indicates that a LEFT SHIFT is Present. MCH (RBC) [Entitic mass] 32.1 pg 27.0-32.0 [facility] Nucleated RBC/100 WBC (Bld) [Ratio] 0 % 0-5 [facility] MCHC Auto (RBC) [Mass/Vol]Or dered By: Marvel Pierce on 03-28-2023 MCHC (RBC) [Mass/Vol] 32.0 g/dL 32-36 [facility] Platelets bldOrdered By: Ye Pierce on 03-28-2023 Platelets (Bld) [#/Vol] 269 10*3/uL 150-450 [facility] INR in Blood by Coagulation assayOrdered By: Taylor Julian on 03-04-2023 INR Coag (Bld) [Relative time] 1.0 {INR} [facility] Laboratory - CoagulationOrde red By: Taylor Julian on 03-04-2023 aPTT Coag (Bld) [Time] 28.9 s 24.1-36.2 [facility] PT Coag (PPP) [Time] 13.5 s 11.7-14.9 [facility] Platelets bldOrdered By: Jesus Julian on 03-04-2023 Platelets (Bld) [#/Vol] 230 10*3/uL 150-450 [facility] HbA1c (Bld)on 02-28-2023 Average glucose Estimated from glycated hemoglobin (Bld) [Mass/Vol] 123 mg/dL [facility] HbA1c (Bld) [Mass fraction] 5.9 % High 4.3 - 5.6 % [facility] .Auto Diffon 12-21-2021 Basophil, Absolute 0.0 10 3/mcL Normal 0.0-0.2 [facility] ([place]) Comment on above: Performed By: #### Elda TALAVERA, BMP #### [address] [address] Basophils/100 WBC (Bld) 0.3 % Normal 0.0-2.5 [facility] ([place]) Comment on above: Performed By: #### Elda TALAVREA, BMP #### [address] [address] Eosinophil, Absolute 0.1 10 3/mcL Normal 0.0-0.4 [facility] ([place]) Comment on above: Performed By: #### Elda TALAVERA, BMP #### [address] [address] Eosinophils/100 WBC (Bld) 0.6 % Normal 0.0-7.0 [facility] ([place]) Comment on above: Performed By: #### Elda TALAVERA, BMP #### [address] [address] Lymphocyte, Absolute 2.8 10 3/mcL Normal 0.8-3.9 [facility] [place] Comment on above: Performed By: #### Elda TALAVERA, BMP #### [address] [address] Lymphocytes/100 WBC (Bld) 20.6 % Normal 10.0-50.0 [facility] ([place] Comment on above: Performed By: #### Elda TALAVERA, BMP #### [address] [address] Monocyte, Absolute 1.5 10 3/mcL High 0.2-1.0 [facility] ([place]) Comment on above: Performed By: #### G FR, BMP #### [address] [address] Monocytes/100 WBC (Bld) 11.4 % Normal 1.7-13.0 [facility] ([place]) Comment on above: Performed By: #### G FR, BMP #### [address] [address] Neutrophils/100 WBC (Bld) 67.1 % Normal 37.0-80.0 [facility] ([place]) Comment on above: Performed By: #### G FR, BMP #### [address] [address] .GFRon 12-21-2021 GFR Non- 25 ml/min/1.73sqm Normal [facility] ([place]) Comment on above: Result Comment: GFR Population mean for , Non- Americans Ages 20-29 = 116 mL/min/1.73 sq.m. Ages 30-39 = 107 mL/min/1.73 sq.m. Ages 40-49 = 99 mL/min/1.73 sq.m. Ages 50-59 = 93 mL/min/1.73 sq.m. Ages 60-69 = 85 mL/min/1.73 sq.m. Ages 70+ = 75 mL/min/1.73 sq.m. Chronic Kidney Disease: Less than 60 mL/min/1.73 square meters End Stage Renal Disease: Less than 15 mL/min/1.73 square meters Performed By: #### G , BMP #### [address] [address] GFR 30 ml/min/1.73sqm Normal [facility] ([place]) Comment on above: Result Comment: GFR Population mean for , Non- Americans Ages 20-29 = 116 mL/min/1.73 sq.m. Ages 30-39 = 107 mL/min/1.73 sq.m. Ages 40-49 = 99 mL/min/1.73 sq.m. Ages 50-59 = 93 mL/min/1.73 sq.m. Ages 60-69 = 85 mL/min/1.73 sq.m. Ages 70+ = 75 mL/min/1.73 sq.m. Chronic Kidney Disease: Less than 60 mL/min/1.73 square meters End Stage Renal Disease: Less than 15 mL/min/1.73 square meters Performed By: #### Elda TALAVERA, BMP #### [address] [address] .MDWon 12-21-2021 Monocyte Distribution Width 15.87 Normal 0.00-20.00 [facility] ([place] Comment on above: Result Comment: For ED adult patients suspected of sepsis, MDW<=20.0 does not rule out sepsis or risk of sepsis Performed By: #### Elda TALAVERA, BMP #### [address] [address] .NEUABSon 12-21-2021 Neutrophil, Absolute 9.0 10 3/mcL High 2.9-6.2 [facility] [place] Comment on above: Performed By: #### Elda TALAVERA, BMP #### [address] [address] BMPon 12-21-2021 BUN/Creatinine Ratio 9 ratio Normal 7-27 [facility] ([place]) Comment on above: Performed By: #### Elda TALAVERA, BMP #### [address] [address] Calcium [Mass/Vol] 10.3 mg/dL High 8.4-10.2 [facility] ([place]) Comment on above: Performed By: #### Elda TALAVERA, BMP #### [address] [address] Chloride [Moles/Vol] 108 mmol/L High 98-107 [facility] ([place]) Comment on above: Performed By: #### Elda TALAVERA, BMP #### [address] [address] CO2 [Moles/Vol] 21 mmol/L Low 22-29 [facility] ([place] Comment on above: Performed By: #### Elda TALAVERA, BMP #### [address] [address] Creatinine [Mass/Vol] 2.07 mg/dL High 0.55-1.02 [facility] ([place]) Comment on above: Performed By: #### G FR, BMP #### [address] [address] Electrolyte Balance 16.0 mEq/L High 4.0-15.0 [facility] ([place]) Comment on above: Performed By: #### G FR, BMP #### [address] [address] Glucose [Mass/Vol] 118 mg/dL High 70-105 [facility] ([place]) Comment on above: Performed By: #### G , BMP #### [address] [address] Potassium [Moles/Vol] 3.4 mmol/L Low 3.5-5.1 [facility] ([place]) Comment on above: Performed By: #### Elda TALAVERA, BMP #### [address] [address] Sodium [Moles/Vol] 145 mmol/L Normal 136-145 [facility] ([place]) Comment on above: Performed By: #### G , BMP #### [address] [address] Urea nitrogen [Mass/Vol] 19 mg/dL High 7-18 [facility] ([place]) Comment on above: Performed By: #### G , BMP #### [address] [address] CBCon 12-21-2021 Erythrocyte distribution width (RBC) [Ratio] 13.2 % Normal 11.5-14.5 [facility] ([place]) Comment on above: Performed By: #### G FR, BMP #### [address] [address] Hematocrit (Bld) [Volume fraction] 43.7 % Normal 37.0-47.0 [facility] ([place] Comment on above: Performed By: #### G FR, BMP #### [address] [address] Hgb 14.4 G/dL Normal 12.0-16.0 [facility] ([place] Comment on above: Performed By: #### G , BMP #### [address] [address] MCH (RBC) [Entitic mass] 31.5 pg High 27.0-31.2 [facility] ([place] Comment on above: Performed By: #### G , BMP #### [address] [address] MCHC 32.9 G/dL Low 33.0-37.0 [facility] ([place] Comment on above: Performed By: #### G , BMP #### [address] [address] MCV (RBC) [Entitic vol] 95.8 fL High 80.0-94.0 [facility] ([place]) Comment on above: Performed By: #### Elda TALAVERA, BMP #### [address] [address] Platelet 272 10 3/mcL Normal 130-400 [facility] ([place] Comment on above: Performed By: #### G , BMP #### [address] [address] Platelet mean volume (Bld) [Entitic vol] 9.0 fL Normal 7.4-10.4 [facility] ([place]) Comment on above: Performed By: #### Elda FR, BMP #### [address] [address] RBC 4.56 10 6/mcL Normal 4.20-5.40 [facility] ([place] Comment on above: Performed By: #### G FR, BMP #### [address] [address] WBC 13.5 10 3/mcL High 4.6-10.8 [facility] ([place] Comment on above: Performed By: #### Elda FR, BMP #### [address] [address] LABORATORYOrdered By: Dior Marshall on 12-21-2021 Basophil, Absolute 0.0 103/mcL Invalid Interpretation Code 0.0 - 0.2 10^3/mcL AO Workflow SS Basophils/100 WBC (Bld) 0.3 % Invalid Interpretation Code 0.0 - 2.5 % AO Workflow SS Eosinophil, Absolute 0.1 103/mcL Invalid Interpretation Code 0.0 - 0.4 10^3/mcL AO Workflow SS Eosinophils/100 WBC (Bld) 0.6 % Invalid Interpretation Code 0.0 - 7.0 % AO Workflow SS Erythrocyte distribution width (RBC) [Ratio] 13.2 % Invalid Interpretation Code 11.5 - 14.5 % AO Workflow SS Hematocrit (Bld) [Volume fraction] 43.7 % Invalid Interpretation Code 37.0 - 47.0 % AO Workflow SS Hgb 14.4 G/dL Invalid Interpretation Code 12.0 - 16.0 G/dL AO Workflow SS Lymphocyte, Absolute 2.8 103/mcL Invalid Interpretation Code 0.8 - 3.9 10^3/mcL AO Workflow SS Lymphocytes/100 WBC (Bld) 20.6 % Invalid Interpretation Code 10.0 - 50.0 % AO Workflow SS MCH (RBC) [Entitic mass] 31.5 pg Invalid Interpretation Code 27.0 - 31.2 pg AO Workflow SS MCHC 32.9 G/dL Invalid Interpretation Code 33.0 - 37.0 G/dL AO Workflow SS MCV (RBC) [Entitic vol] 95.8 fL Invalid Interpretation Code 80.0 - 94.0 fL AO Workflow SS Monocyte distribution width Auto (Bld) [Entitic vol] 15.87 Invalid Interpretation Code 0.00 - 20.00 AO Workflow SS Comment on above: Result Comment: For ED adult patients suspected of sepsis, MDW<=20.0 does not rule out sepsis or risk of sepsis Monocyte, Absolute 1.5 103/mcL Invalid Interpretation Code 0.2 - 1.0 10^3/mcL AO Workflow SS Monocytes/100 WBC (Bld) 11.4 % Invalid Interpretation Code 1.7 - 13.0 % AO Workflow SS Neutrophil, Absolute 9.0 103/mcL Invalid Interpretation Code 2.9 - 6.2 10^3/mcL AO Workflow SS Neutrophils/100 WBC (Bld) 67.1 % Invalid Interpretation Code 37.0 - 80.0 % AO Workflow SS Platelet 272 103/mcL Invalid Interpretation Code 130 - 400 10^3/mcL AO Workflow SS Platelet mean volume (Bld) [Entitic vol] 9.0 fL Invalid Interpretation Code 7.4 - 10.4 fL AO Workflow SS RBC 4.56 106/mcL Invalid Interpretation Code 4.20 - 5.40 10^6/mcL AO Workflow SS WBC 13.5 103/mcL Invalid Interpretation Code 4.6 - 10.8 10^3/mcL AO Workflow SS LABORATORYOrdered By: Citlali Latham on 12-21-2021 Calcium [Mass/Vol] 10.3 mg/dL Invalid Interpretation Code 8.4 - 10.2 mg/dL AO ADM SS Chloride [Moles/Vol] 108 mmol/L Invalid Interpretation Code 98 - 107 mmol/L AO ADM SS CO2 [Moles/Vol] 21 mmol/L Invalid Interpretation Code 22 - 29 mmol/L AO ADM SS Creatinine [Mass/Vol] 2.07 mg/dL Invalid Interpretation Code 0.55 - 1.02 mg/dL AO ADM SS Electrolyte Balance 16.0 mEq/L Invalid Interpretation Code 4.0 - 15.0 mEq/L AO ADM SS Glucose [Mass/Vol] 118 mg/dL Invalid Interpretation Code 70 - 105 mg/dL AO ADM SS Potassium [Moles/Vol] 3.4 mmol/L Invalid Interpretation Code 3.5 - 5.1 mmol/L AO ADM SS Sodium [Moles/Vol] 145 mmol/L Invalid Interpretation Code 136 - 145 mmol/L AO ADM SS Urea nitrogen [Mass/Vol] 19 mg/dL Invalid Interpretation Code 7 - 18 mg/dL AO ADM SS Urea nitrogen/Creatinine [Mass ratio] 9 ratio Invalid Interpretation Code 7 - 27 ratio AO ADM SS LABORATORYOrdered By: SYSTEM SYSTEM on 12-21-2021 GFR 30 ml/min/1.73sqm Invalid Interpretation Code AO Chemistry S GFR Non- 25 ml/min/1.73sqm Inval id Interpretation Code AO Chemistry S Basophil percentageon 2021 Chloride [Moles/Vol] 106 mmol/L 98-[address] [facility] Work Phone: Glucose [Mass/Vol] 77 mg/dL 74-106 [place] [facility] Work Phone: Potassium [Moles/Vol] 3.8 mmol/L 3.5-5.1 [facility] Work Phone: Sodium [Moles/Vol] 140 mmol/L 136-145 [facility] Work Phone: Glucose Glucometer (BldC) [M ass/Vol]on 09-07-2021 Glucose [Mass/Vol] 111 mg/dL 70-110 [facility] Work Phone: Comment on above: MANAGEMENT OF PATIEN T CARE PER NURSING PROTOCOL Laboratory - Chemistry and C hemistry - challengeon 09-07-2021 CO2 [Moles/Vol] 31.0 mmol/L 21.0-32.0 [facility] Work Phone: Urea nitrogen/Creatinine [Mass ratio] 35.1 mg/mg 10-20 [facility] Work Phone: No Panel Informationon 09-07 SARS-CoV-2 Antigen (Rapid) [facility] Work Phone: Estimated Creatinine Clearance Calc 56.94 ml/min [facility] Work Phone: Estimated GFR (MDRD) Amer 84 mL/min >60 [facility] Work Phone: Comment on above: GFR Calc Estimated GFR (MDRD) Non-Af Amer 69 mL/min >60 [facility] Work Phone: Comment on above: Non- GFR Calc Serum or plasma calcium dane urement (mass/volume)on 09-07-2021 Calcium [Mass/Vol] 8.5 mg/dL 8.5-10.1 [facility] Work Phone: Serum or plasma creatinine m easurement (mass/volume)on 09-07-2021 Creatinine [Mass/Vol] 0.88 mg/dL 0.55-1.02 [facility] Work Phone: Comment on above: The validity of the calculated GFR & GFRAA in patients over 70 years has not been determined. Clinical correlation is essential. Serum or plasma urea nitroge n measurement (mass/volume)on 09-07-2021 Urea nitrogen [Mass/Vol] 31 mg/dL 7-18 [facility] Work Phone: Thin prep Papanicolaou smear with manual screeningon 09-07-2021 Thin prep Papanicolaou smear with manual screening 3 5-15 [facility] Work Phone: Absolute lymphocyte counton 09-03-2021 Lymphocytes Auto (Unsp spec) [#/Vol] 0.78 10*3/uL 0.83-4.51 [facility] Work Phone: Basophil percentageon 2021 Basophils/100 WBC (Bld) 0.1 % 0-1 [facility] Work Phone: Eosinophils/100 WBC (Bld) 0.0 % 0-5 [facility] Work Phone: Neutrophils (Bld) [#/Vol] 8.2 10*3/uL 2.0-7.7 [facility] Work Phone: Neutrophils/100 WBC (Bld) 87.3 % 47-70 [facility] Work Phone: [phone] WBC (Bld) [#/Vol] 9.4 10*3/uL 4.4-11.0 [facility] Work Phone: Blood erythrocytes count (nu mber/volume)on 09-03-2021 RBC (Bld) [#/Vol] 4.19 10*6/uL 4.2-5.4 [facility] Work Phone: Blood hemoglobin measurement (mass/volume)on 09-03-2021 Hemoglobin (Bld) [Mass/Vol] 13.0 g/dL 12.0-15.0 [facility] Work Phone: [phone] Blood lymphocytes/100 leukoc yteson 09-03-2021 Lymphocytes/100 WBC (Bld) 8.3 % 19-41 [facility] Work Phone: [phone] Blood monocytes/100 leukocyt eson 09-03-2021 Monocytes/100 WBC (Bld) 3.2 % 0-10 [facility] Work Phone: Blood platelet mean volumeon 09-03-2021 Platelet mean volume (Bld) [Entitic vol] 11.1 fL 6.2-12.0 [facility] Work Phone: Determination of erythrocyte mean corpuscular volume (MCV)on 09-03-2021 MCV (RBC) [Entitic vol] 95.2 fL 81-99 [facility] Work Phone: Hematocrit Auto (Bld) [Volum e fraction]on 09-03-2021 Hematocrit (Bld) [Volume fraction] 39.9 % 37-47 [facility] Work Phone: Laboratory - Hematology and Cell countson 09-03-2021 Erythrocyte distribution width (RBC) [Entitic vol] 47.5 fL 35.1-43.9 [facility] Work Phone: Erythrocyte distribution width (RBC) [Ratio] 13.4 % 11.6-14.6 [facility] Work Phone: Immature granulocytes/100 WBC (Bld) 1.100 % 0.0-0.9 [facility] Work Phone: Comment on above: IG% - Immature Granu locytes (promyelocytes, myelocytes and metamyelocytes) > 1% indicates that a LEFT SHIFT is Present. MCH (RBC) [Entitic mass] 31.0 pg 27.0-32.0 [facility] Work Phone: Nucleated RBC/100 WBC (Bld) [Ratio] 0 % 0-5 [facility] Work Phone: MCHC Auto (RBC) [Mass/Vol]on 09-03-2021 MCHC (RBC) [Mass/Vol] 32.6 g/dL 32-36 [facility] Work Phone: Platelets bldon 09-03-2021 Platelets (Bld) [#/Vol] 317 10*3/uL 150-450 [facility] Work Phone: Blood manual differential co mment interpretation (narrative result)on 09-01-2021 Manual differential comment Jacobo (Bld) [Interp] SCANNED [facility] Work Phone: No Panel Informationon 09-01 Atypical Lymphocytes RARE % [facility] Work Phone: Basophil percentageon 2021 Bilirubin [Mass/Vol] 0.60 mg/dL 0.20-1.00 [facility] Work Phone: Comment on above: For patients on eltr ombopag therapy, use of Dimension Glidden TBIL is not recommended. Protein [Mass/Vol] 5.9 g/dL 6.4-8.2 [facility] Work Phone: Laboratory - Chemistry and C hemistry - challengeon 08-31-2021 ALP [Catalytic activity/Vol] 90 U/L 45-117 [facility] Work Phone: ALT [Catalytic activity/Vol] 64 U/L 13-56 [facility] Work Phone: Globulin (S) [Mass/Vol] 3.8 g/dL 2.2-4.2 [facility] Work Phone: Serum or plasma albumin dane urement (mass/volume)on 08-31-2021 Albumin [Mass/Vol] 2.1 g/dL 3.2-5.0 [facility] Work Phone: Serum or plasma albumin/glob ulin mass ratioon 08-31-2021 Albumin/Globulin [Mass ratio] 0.6 {ratio} 0.9-2.4 [facility] Work Phone: Thin prep Papanicolaou smear with manual screeningon 08-31-2021 Thin prep Papanicolaou smear with manual screening 65 U/L 15-37 [facility] Work Phone: No Panel Informationon 08-26 SARS-CoV-2 IgM Antibody Negative Negative [facility] Work Phone: Comment on above: This sample does not contain detectable SARS-CoV-2 IgMantibodies. This negative result does not rule out SARS-CoV-2 infection. Correlation with epidemiologic risk factorsand other clinical and laboratory findings is recommended.Serologic results should not be used as the sole basis todiagnose or exclude recent SARS-CoV-2 infection.This assay detects antibodies against SARS-CoV-2 spikeprotein including the receptor binding domain (RBD).Performed at: [address] [id number] Director: Chris Guy PhD, Phone: [phone] D-Dimer Quantitative (PE/DVT) 12.66 FEU/ug/m 0.27-0.49 [facility] Work Phone: Comment on above: CRITICAL VALUE VERIF IED. CALLED TO VIVI HOLDER08/26/21 0946 Annie Saleh.RESULTS READ BACK BY SAME . D-Dimer ELEVATED (>0.49): Additional studies and clinicalassessments are indicated to conclude diagnosis of:Deep Vein Thrombosis (DVT) or Pulmonary Embolism (PE) Serum or plasma severe acute respiratory syndrome coronavirus 2 (SARS-CoV-2) IgG antion 08-26-2021 SARS-CoV-2 (COVID-19) IgG IA Ql 0.88 INDEX 0.00-0.99 [facility] Work Phone: Comment on above: It is yet undetermin ed what level of antibody to SARS-CoV-2 spike protein correlates to immunity against developing symptomatic SARS-CoV-2 disease. Studies are underway to measure the quantitative levels of specific SARS-CoV-2 antibodies following vaccination. Such studies will provide valuable insights into the correlation between protection from vaccination and antibody levels. Interpretation: Negative < 1.0 Positive > or = 1.0Method: [employer] IM SARS SEMI-QUANT IGG ABS * This test has not been reviewed by the FDA* Use of this test is limited to laboratories that are certified under Clinical Laboratory Improvement Amendments of 1988 (CLIA) to perform high-complexity testing.* Negative results do not preclude acute SARS-CoV-2 infection. If acute infection is suspected, direct testing for SARS-CoV-2 is necessary.* Results from antibody testing should not be used to diagnose or exclude acute SARS-CoV-2 infection.* Positive results may be due to past or present infection with [id number] coronovirus strains, such as coronavirus HKU1, NL63, OC43, or 229E. Basophil percentageon 2021 Basophil percentage 0-5 SEEN /[facility] Work Phone: Lactate [Moles/Vol] 1.3 mmol/L 0.4-2.0 [place] [facility] Work Phone: Bilirubin Test strip Ql (U)o n 08-25-2021 Bilirubin Ql (U) Negative Negative [facility] Work Phone: Blood platelet adequacy dete ction by light microscopyon 08-25-2021 Platelets LM Ql (Bld) ADEQUATE ADEQ [facility] Work Phone: Culture, urineon 08-25-2021 Bacteria identified Cx Nom (U) Culture exhibits no growth. [facility] Work Phone: HCO3 (BldA) [Moles/Vol]on HCO3 (Bld) [Moles/Vol] 29 mmol/L 22-26 [facility] Work Phone: INR in Blood by Coagulation assayon 08-25-2021 INR Coag (Bld) [Relative time] 1.1 {INR} [facility] Work Phone: Ketones Test strip Ql (U)on 08-25-2021 Ketones Ql (U) Negative Negative [facility] Work Phone: Laboratory - Chemistry and C hemistry - challengeon 08-25-2021 Magnesium [Mass/Vol] 2.2 mg/dL [facility] Work Phone: Comment on above: Performed at: [facility] mondragon [address] [id number] Director: Chris Guy PhD, Phone: [phone] Natriuretic peptide B (Bld) [Mass/Vol] 124.5 pg/mL 0-100 [facility] Work Phone: CO2 [Moles/Vol] 31 mmol/L 23-33 [facility] Work Phone: Laboratory - Coagulationon 0 08-25-2021 aPTT Coag (Bld) [Time] 29.2 s 24.1-36.2 [facility] Work Phone: PT Coag (PPP) [Time] 14.0 [facility] - Hematology and Cell countson 08-25-2021 Anisocytosis Ql (Bld) RARE [facility] Work Phone: Laboratory - Microbiology an d Antimicrobial susceptibilityon 08-25-2021 SARS-CoV-2 (COVID-19) RNA GERARDO+probe Ql (Unsp spec) Not detected Not Detect [facility] Work Phone: Comment on above: Normal Reference Ran ge: Not DetectedMethod:(RT-PCR) real-time reverse transcriptase PCRLuminex DWAYNE Instrument*The Food and Drug Administration (FDA) has issued an Emergency Use Authorization (EAU) for the DWAYNE SARS-CoV-2 Assay for the rapid detection of the virus that causes COVID-19. This test has been validated, but the FDAs independent review of this validation is pending.*Negative results do not preclude infection and should not be used as the sole basis for treatment or patient management. Optimum specimen types and timing for peak viral levels during infections caused by SARS-CoV-2 have not been determined. Collection of multiple specimens from the same patient may be necessary to detect the virus. The possibility of a false negative result should be considered if the patient has clinical presentation or has had recent exposure. Bacteria identified Cx Nom (Bld) No growth in 5 days. [facility] Work Phone: Macrocytes detectionon 08-25 Macrocytes Ql (Bld) RARE [facility] Work Phone: Mucus LM Ql (Urine sed)on Mucus Ql (Urine sed) 0 SEEN /hpf [facility] Work Phone: Nitrite Test strip Ql (U)on 08-25-2021 Nitrite Ql (U) Positive Negative [facility] Work Phone: No Panel Informationon 08-25 Methicillin-Resist S.aureus DNA PCR Negative Negative [facility] Work Phone: Bed Mix Venous Bld PCO2 at Pat Temp 45.0 mmHg 41-51 [facility] Work Phone: Blood Gas Liter Flow 8.0 /min [facility] Work Phone: Blood Gas Specimen Type TYRON [facility] Work Phone: Oxygen Delivery Device [facility] Work Phone: Venous Blood Base Excess 5 mmol/L -1.0-3.5 [facility] Work Phone: Ovalocyte detectionon 2021 Ovalocytes LM Ql (Bld) RARE Wo [facility] Work Phone: PO2 venouson 08-25-2021 Oxygen (BldV) [Partial pressure] 26 mm[Hg] 25-40 [facility] Work Phone: Protein Test strip Ql (U)on 08-25-2021 Protein Ql (U) 15 mg/dl Negative [facility] Work Phone: RBC morphologyon 08-25-2021 RBC morphology finding Nom (Bld) N CHROM NORMAL NORM C&C [facility] Work Phone: Serum procalcitonin measurem enton 08-25-2021 Procalcitonin [Mass/Vol] 0.15 ng/mL 0.00-0.09 [facility] Work Phone: Comment on above: A procalcitonin (PCT ) level above 2.0 ng/mL on the first day of ICU admission is associated with a high risk for progression to severe sepsis and/or septic shock. A PCT level below 0.5 ng/mL on the first day of ICU admission is associated with a low risk for progression to severe and/or septic shock. Note: Concentrations <0.5 ng/mL do not exclude an infection on account of localized infections (without systemic signs) which can be associated with such low concentrations, or a systemic infection in its initial stages (<6 hours). Furthermore, increased procalcitonin can occur without infection. PCT concentrations between 0.5 and 2.0 ng/mL should be interpreted taking into account the patient's history. It is recommended to retest PCT within 6-24 hours if any concentrations <2 ng/mL are obtained. Squamous epithelial cells de tection in urine sediment by light microscopyon 08-25-2021 Epithelial cells.squamous LM Ql (Urine sed) 0 SEEN /hpf [facility] Work Phone: Urine blood detectionon RBC Ql (U) 10 /ul Negative [facility] Work Phone: RBC Ql (U) 0 SEEN /hpf [facility] Work Phone: Urine clarityon 08-25-2021 Clarity (U) Clear Clear [facility] Work Phone: Urine color determinationon 08-25-2021 Color (U) Yellow Yellow [facility] Work Phone: Urine glucose detectionon Glucose Ql (U) Normal mg/dl Normal [facility] Work Phone: Urine leukocyte esterase det ection by dipstickon 08-25-2021 Leukocyte esterase Test strip Ql (U) Negative Negative [facility] Work Phone: Urine pHon 08-25-2021 pH (U) 6.0 [pH] [facility] Work Phone: Urine sediment bacteria coun t by microscopy (number/high power field)on 08-25-2021 Bacteria LM.HPF (Urine sed) [#/Area] 3 /[HPF] None Seen [facility] Work Phone: Urine specific gravity measu rementon 08-25-2021 Specific gravity (U) [Rel density] 1.010 [facility] Work Phone: Urobilinogen Auto test strip Ql (U)on 08-25-2021 Urobilinogen Ql (U) 1 mg/dl Normal [facility] Work Phone: Vital signson 08-25-2021 Oxygen saturation in Blood 49 % 50-70 [facility] Work Phone: pH measurementon 08-25-2021 pH (Unsp spec) 7.42 [pH] 7.32-7.42 [facility] Work Phone: .GFRon 02-11-2021 GFR 43 ml/min/1.73sqm Normal [facility] ([place]) Comment on above: Result Comment: GFR Population mean for , Non- Americans Ages 20-29 = 116 mL/min/1.73 sq.m. Ages 30-39 = 107 mL/min/1.73 sq.m. Ages 40-49 = 99 mL/min/1.73 sq.m. Ages 50-59 = 93 mL/min/1.73 sq.m. Ages 60-69 = 85 mL/min/1.73 sq.m. Ages 70+ = 75 mL/min/1.73 sq.m. Chronic Kidney Disease: Less than 60 mL/min/1.73 square meters End Stage Renal Disease: Less than 15 mL/min/1.73 square meters Performed By: #### B MP, GFR #### [place] [address] GFR Non- 35 ml/min/1.73sqm Normal [facility] ([place]) Comment on above: Result Comment: GFR Population mean for , Non- Americans Ages 20-29 = 116 mL/min/1.73 sq.m. Ages 30-39 = 107 mL/min/1.73 sq.m. Ages 40-49 = 99 mL/min/1.73 sq.m. Ages 50-59 = 93 mL/min/1.73 sq.m. Ages 60-69 = 85 mL/min/1.73 sq.m. Ages 70+ = 75 mL/min/1.73 sq.m. Chronic Kidney Disease: Less than 60 mL/min/1.73 square meters End Stage Renal Disease: Less than 15 mL/min/1.73 square meters Performed By: #### B MP, GFR #### [address] [address] BMPon 02-11-2021 BUN/Creatinine Ratio 13 ratio Normal 7-27 [facility] ([place]) Comment on above: Performed By: #### B MP, GFR #### [address] [address] Calcium [Mass/Vol] 9.6 mg/dL Normal 8.4-10.2 [facility] ([place]) Comment on above: Performed By: #### B MP, GFR #### [address] [address] Chloride [Moles/Vol] 106 mmol/L Normal 98-107 [facility] ([place]) Comment on above: Performed By: #### B MP, GFR #### [address] [address] CO2 [Moles/Vol] 30 mmol/L High 22-29 [facility] ([place]) Comment on above: Performed By: #### B MP, GFR #### [address] [address] Creatinine [Mass/Vol] 1.51 mg/dL High 0.55-1.02 [facility] ([place]) Comment on above: Performed By: #### B MP, GFR #### [address] [address] Electrolyte Balance 6.0 mEq/L Normal [facility] ([place]) Comment on above: Performed By: #### B MP, GFR #### [address] [address] Glucose [Mass/Vol] 99 mg/dL Normal 70-105 [facility] ([place]) Comment on above: Performed By: #### B MP, GFR #### [address] [address] Potassium [Moles/Vol] 5.8 mmol/L High 3.5-5.1 [facility] ([place]) Comment on above: Performed By: #### B MP, GFR #### [address] [address] Sodium [Moles/Vol] 142 mmol/L Normal 136-145 [facility] ([place]) Comment on above: Performed By: #### B MP, GFR #### [facility] [address] [place] [id number] Urea nitrogen [Mass/Vol] 19 mg/dL High 7-18 [facility] ([place]) Comment on above: Performed By: #### B MP, GFR #### [facility] [address] [place] [address] XR Pelvis and Hip - left AP and Lateral frogon 11-20-2020 IMPRESSION: 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 Correlation with patient history and additional evaluation with bone scan may be helpful. Train Announcer: PSCB Transcribe Date/Time: Nov 20 2020 5:57P Dictated by : ALTAGRACIA WEIR MD This examination was interpreted and the report reviewed and electronically signed by: ALTAGRACIA WEIR MD on Nov 20 2020 6:01PM [facility] DIVISION OF RADIOLOGY * * *Final Report* * * DATE OF EXAM: Nov 20 2020 4:19PM [id number] - XR HIP 3V PELV+ AP/LAT LT / PROCEDURE REASON: Left hip pain * * * * Physician Interpretation * * * * Pelvis and left hip radiograph HISTORY: 60 years old Clinical information: Left hip pain Left posterior hip pain since having a bladder stimulater placed in [facility]. TECHNIQUE: Images: XR HIP 3V PELV+ AP/LAT LT Comparison: 12/16/2017 RESULT: Findings: Stimulator device overlying the right iliac bone and lead extending into the right sacrum. Superior left hip joint space is maintained. No fracture or dislocation. Superior right hip joint space is maintained. Osteophyte formation involving the right superior acetabulum. Areas of sclerosis involving the left ischium. Single focus of sclerosis is seen on the 12/16/2017 CT. Remainder of the imaged bony pelvis appears to be intact. Pubic symphysis and SI joints are intact. DIVISION OF RADIOLOGY Provider, [facility] - 11/20/2020 * * *Final Report* * * DATE OF EXAM: Nov 20 2020 4:19PM WOX [id number] - XR HIP 3V PELV+ AP/LAT LT / PROCEDURE REASON: Left hip pain * * * * Physician Interpretation * * * * Pelvis and left hip radiograph HISTORY: 60 years old Clinical information: Left hip pain Left posterior hip pain since having a bladder stimulater placed in [facility]. TECHNIQUE: Images: XR HIP 3V PELV+ AP/LAT LT Comparison: 12/16/2017 RESULT: Findings: Stimulator device overlying the right iliac bone and lead extending into the right sacrum. Superior left hip joint space is maintained. No fracture or dislocation. Superior right hip joint space is maintained. Osteophyte formation involving the right superior acetabulum. Areas of sclerosis involving the left ischium. Single focus of sclerosis is seen on the 12/16/2017 CT. Remainder of the imaged bony pelvis appears to be intact. Pubic symphysis and SI joints are intact. IMPRESSION IMPRESSION: 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 Correlation with patient history and additional evaluation with bone scan may be helpful. Train Announcer: [facility] Transcribe Date/Time: Nov 20 2020 5:57P Dictated by : ALTAGRACIA WEIR MD This examination was interpreted and the report reviewed and electronically signed by: ALTAGRACIA WEIR MD on Nov 20 2020 6:01PM [facility] Radiology Study observation (narrative) Anisa arthur [facility] XR Pelvis and Hip - left AP and Lateral frogOrdered By: [facility] Provider on 11-20-2020 [facility] BUNon 01-06-2019 Urea nitrogen mass conc 13 mg/dL Normal 7-21 [facility] Reference Lab Comment on above: Performed By: #### B SAYRA, CRET1 #### [facility] Laboratories Routine Lab [address] [place] [address] Creatinineon 01-06-2019 Creatinine mass conc 1.06 mg/dL High 0.58-0.96 [facility] Reference Lab Comment on above: Performed By: #### B SAYRA, CRET1 #### [facility] Laboratories Routine Lab [address] [place] [id number] Creatinine mass conc mg/dL Normal [facility] Reference Lab Comment on above: Performed By: #### B SAYRA CRET1 #### [facility] Routine Lab [address] [place], [place] [address] Creatinine mass conc 54 . Normal [facility] Reference Lab Comment on above: Performed By: #### B SAYRA, CREDoron #### [facility] Laboratories Routine Lab [address] [place], [place] [address] Office Visit: est annualon 1 Fall risk assessment No Invalid Interpretation Code [facility] Tobacco smoking status NHIS Never Invalid Interpretation Code [facility] Tobacco use CPHS Current every day smoker Invalid Interpretation Code [facility] Office Visit: est annualon 0 10-17-2015 Breast Mammogram screening Normal Bilateral Invalid Interpretation Code [facility] Office Visit: est annualon 0 07-18-2014 General categories [Interpretation] of Cervical or vaginal smear or scraping by Cyto stain Normal Invalid Interpretation Code [facility] Vital Signs Date Time Vital Sign Value Performing Clinician Facility 04-30-2025 21:26-0400 Body temperature 97.2 [degF] Broderick [employer] Work Phone: [facility] 04-30-2025 21:26-0400 Diastolic blood pressure 61 mm[Hg] Broderick Arteagakins Work Phone: [facility] 04-30-2025 21:26-0400 Heart rate 95 /min Broderick Suazopkins Work Phone: [facility] 04-30-2025 21:26-0400 Respiratory rate 30 /min Broderick [employer]agak[employer] Work Phone: [facility] 04-30-2025 21:26-0400 SaO2% (BldA) [Mass fraction] 91 % Broderick Ar[employer]agak[employer] Work Phone: [facility] 04-30-2025 21:26-0400 Systolic blood pressure 108 mm[Hg] Broderick [employer] Work Phone: [facility] 04-30-2025 19:14-0400 Inhaled oxygen flow rate 2 L/min Broderick [employer] Work Phone: [facility] 04-30-2025 17:49-0400 Body height 157.48 cm Broderick Minor Work Phone: [facility] 04-30-2025 17:49-0400 Body mass index (BMI) [Ratio] 44.4 kg/m2 Broderick Suazopkins Work Phone: [facility] 04-30-2025 17:49-0400 Body weight 110.3 kg Broderick Minor Work Phone: [facility] 03-11-2025 11:21-0400 Body height 157.48 cm Broderick Suazopkins Work Phone: [facility] 03-11-2025 11:21-0400 Body mass index (BMI) [Ratio] 44.8 kg/m2 Broderick [place] Work Phone: [facility] 03-11-2025 11:21-0400 Body weight 111.13 kg Broderick Minor Work Phone: [facility] 03-11-2025 11:21-0400 Diastolic blood pressure 76 mm[Hg] Broderick Arteagakins Work Phone: [facility] 03-11-2025 11:21-0400 Heart rate 104 /min Broderick Minor Work Phone: [facility] 03-11-2025 11:21-0400 Systolic blood pressure 107 mm[Hg] Broderick Minor Work Phone: [facility] 02-27-2025 14:51-0400 Body height 157.48 cm Broderick Minor Work Phone: [facility] 02-27-2025 14:51-0400 Body mass index (BMI) [Ratio] 44.8 kg/m2 Broderick Suazopkins Work Phone: [facility] 02-27-2025 14:51-0400 Body weight 111.13 kg Broderick Suazopkins Work Phone: [facility] 02-27-2025 14:51-0400 Diastolic blood pressure 85 mm[Hg] Broderick Suazopkins Work Phone: [facility] 02-27-2025 14:51-0400 Heart rate 85 /min Broderick Suazopkins Work Phone: [facility] 02-27-2025 14:51-0400 Systolic blood pressure 114 mm[Hg] Broderick Suazopkins Work Phone: [facility] 01-31-2025 10:00-0400 Body height 157.48 cm Broderick Suazopkins Work Phone: [facility] 01-31-2025 10:00-0400 Body mass index (BMI) [Ratio] 44.8 kg/m2 Broderick Suazopkins Work Phone: [facility] 01-31-2025 10:00-0400 Body temperature 97.4 [degF] Broderick [place] Work Phone: [facility] 01-31-2025 10:00-0400 Body weight 111.13 kg Broderick Suazopkins Work Phone: [facility] 01-31-2025 10:00-0400 Diastolic blood pressure 76 mm[Hg] Broderick Suazopkins Work Phone: [facility] 01-31-2025 10:00-0400 Heart rate 88 /min Broderick Suazopkins Work Phone: [facility] 01-31-2025 10:00-0400 Respiratory rate 18 /min Broderick Suazopkins Work Phone: [facility] 01-31-2025 10:00-0400 SaO2% (BldA) [Mass fraction] 93 % Broderick Suazopkins Work Phone: [facility] 01-31-2025 10:00-0400 Systolic blood pressure 115 mm[Hg] Broderick [place] Work Phone: [facility] 2025 10:17-0400 Body mass index (BMI) [Ratio] 44.9 kg/m2 Broderick Suazopkins Work Phone: [facility] 2025 10:17-0400 Body temperature 96.6 [degF] Broderick [place] Work Phone: [facility] 2025 10:17-0400 Body weight 111.58 kg Broderick Minor Work Phone: [facility] 2025 10:17-0400 Diastolic blood pressure 65 mm[Hg] Broderick Minor Work Phone: [facility] 2025 10:17-0400 Heart rate 89 /min Broderick Minor Work Phone: [facility] 2025 10:17-0400 Respiratory rate 16 /min Broderick Minor Work Phone: [facility] 2025 10:17-0400 Systolic blood pressure 110 mm[Hg] Broderick Minor Work Phone: [facility] 01-25-2025 10:11-0400 Body mass index (BMI) [Ratio] 44.04 kg/m2 Meagan MAY-C Work Phone: [facility] 01-25-2025 10:11-0400 Body temperature 98.2 [degF] Meagan Yusuf PA-C Work Phone: [facility] 01-25-2025 10:11-0400 Body weight 112.04 kg Meagan Yusuf PA-C Work Phone: [facility] 01-25-2025 10:11-0400 Diastolic blood pressure 70 mm[Hg] Meagan Yusuf PA-C Work Phone: [facility] 01-25-2025 10:11-0400 Heart rate 85 /min Meagan Yusuf PA-C Work Phone: [facility] 01-25-2025 10:11-0400 Respiratory rate 18 /min Meagan Yusuf PA-C Work Phone: [facility] 01-25-2025 10:11-0400 SaO2% (BldA) [Mass fraction] 93 % Meagan Yusuf PA-C Work Phone: [facility] 01-25-2025 10:11-0400 Systolic blood pressure 110 mm[Hg] Meagan Yusuf PA-C Work Phone: [facility] 01-17-2025 11:18-0400 Body mass index (BMI) [Ratio] 43.86 kg/m2 Meagan Yusuf PA-C Work Phone: [facility] 01-17-2025 11:18-0400 Body temperature 99.5 [degF] Meagan Yusuf PA-C Work Phone: [facility] 01-17-2025 11:18-0400 Body weight 111.58 kg Meagan Yusuf PA-C Work Phone: [facility] 01-17-2025 11:18-0400 Diastolic blood pressure 68 mm[Hg] Meagan Yusuf PA-C Work Phone: [facility] 01-17-2025 11:18-0400 Heart rate 79 /min Meagan Yusuf PA-C Work Phone: [facility] 01-17-2025 11:18-0400 Respiratory rate 18 /min Meagan Yusuf PA-C Work Phone: [facility] 01-17-2025 11:18-0400 SaO2% (BldA) [Mass fraction] 93 % Meagan Yusuf PA-C Work Phone: [facility] 01-17-2025 11:18-0400 Systolic blood pressure 120 mm[Hg] Meagan Yusuf PA-C Work Phone: [facility] 01-11-2025 11:56-0400 Body temperature 97.4 [degF] Broderick Minor Work Phone: [facility] 01-11-2025 11:56-0400 Diastolic blood pressure 66 mm[Hg] Broderick Minor Work Phone: [facility] 01-11-2025 11:56-0400 Heart rate 73 /min Broderick Minor Work Phone: [facility] 01-11-2025 11:56-0400 Respiratory rate 16 /min Broderick Minor Work Phone: [facility] 01-11-2025 11:56-0400 SaO2% (BldA) [Mass fraction] 95 % Broderick Minor Work Phone: [facility] 01-11-2025 11:56-0400 Systolic blood pressure 113 mm[Hg] Broderick Suazopkins Work Phone: [facility] 01-11-2025 05:48-0400 Body mass index (BMI) [Ratio] 46.7 kg/m2 Broderick Minor Work Phone: [facility] 01-11-2025 05:48-0400 Body weight 115.1 kg Broderick Suazopkins Work Phone: [facility] 01-09-2025 17:00-0400 Inhaled oxygen flow rate 2 L/min Broderick Suazopkins Work Phone: [facility] 01-09-2025 11:12-0400 Body height 157.48 cm Broderick Suazopkins Work Phone: [facility] 01-08-2025 20:00-0400 Body temperature 98.2 [degF] Broderick Suazopkins Work Phone: [facility] 01-08-2025 20:00-0400 Diastolic blood pressure 72 mm[Hg] Broderick Suazopkins Work Phone: [facility] 01-08-2025 20:00-0400 Heart rate 87 /min Broderick Suazopkins Work Phone: [facility] 01-08-2025 20:00-0400 Inhaled oxygen flow rate 2 L/min Broderick Suazopkins Work Phone: [facility] 01-08-2025 20:00-0400 Respiratory rate 18 /min Broderick Suazopkins Work Phone: [facility] 01-08-2025 20:00-0400 SaO2% (BldA) [Mass fraction] 100 % Broderick Suazopkins Work Phone: [facility] 01-08-2025 20:00-0400 Systolic blood pressure 114 mm[Hg] Broderick Suazopkins Work Phone: [facility] 01-08-2025 16:29-0400 Body height 157.48 cm Broderick Suazopkins Work Phone: [facility] 01-08-2025 16:29-0400 Body mass index (BMI) [Ratio] 46.7 kg/m2 Broderick Suazopkins Work Phone: [facility] 01-08-2025 16:29-0400 Body weight 116 kg Broderick Suazopkins Work Phone: [facility] 12-18-2024 11:52-0400 Body mass index (BMI) [Ratio] 45.11 kg/m2 Homer Bradford MD Work Phone: [facility] 12-18-2024 11:52-0400 Body weight 114.76 kg Homer Bradford MD Work Phone: [facility] 12-18-2024 11:52-0400 Diastolic blood pressure 70 mm[Hg] Homer Bradford MD Work Phone: [facility] 12-18-2024 11:52-0400 Heart rate 87 /min Homer Bradford MD Work Phone: [facility] 12-18-2024 11:52-0400 Respiratory rate 18 /min Homer Bradford MD Work Phone: [facility] 12-18-2024 11:52-0400 SaO2% (BldA) [Mass fraction] 94 % Homer Bradford MD Work Phone: [facility] 12-18-2024 11:52-0400 Systolic blood pressure 104 mm[Hg] Homer Bradford MD Work Phone: [facility] 11-14-2024 13:09-0400 Body temperature 98.7 [degF] Broderick Minor Work Phone: [facility] 11-14-2024 13:09-0400 Diastolic blood pressure 64 mm[Hg] Broderick Minor Work Phone: [facility] 11-14-2024 13:09-0400 Heart rate 87 /min Broderick Minor Work Phone: [facility] 11-14-2024 13:09-0400 Respiratory rate 16 /min Broderick Minor Work Phone: [facility] 11-14-2024 13:09-0400 SaO2% (BldA) [Mass fraction] 97 % Broderick Minor Work Phone: [facility] 11-14-2024 13:09-0400 Systolic blood pressure 105 mm[Hg] Broderick Minor Work Phone: [facility] 11-14-2024 06:51-0400 Body mass index (BMI) [Ratio] 49.8 kg/m2 Broderick Suazopkins Work Phone: [facility] 11-14-2024 06:51-0400 Body weight 123.7 kg Broderick Suazopkins Work Phone: [facility] 11-12-2024 03:53-0400 Diastolic blood pressure 68 mm[Hg] Broderick Minor Work Phone: [facility] 11-12-2024 03:53-0400 Heart rate 90 /min Broderick Minor Work Phone: [facility] 11-12-2024 03:53-0400 Respiratory rate 18 /min Broderick Minor Work Phone: [facility] 11-12-2024 03:53-0400 SaO2% (BldA) [Mass fraction] 94 % Broderick Suazopkins Work Phone: [facility] 11-12-2024 03:53-0400 Systolic blood pressure 96 mm[Hg] Broderick Mily Work Phone: [facility] 11-12-2024 03:51-0400 Body temperature 97.7 [degF] Broderick [place] Work Phone: [facility] 11-12-2024 02:26-0400 Body mass index (BMI) [Ratio] 47.8 kg/m2 Broderick Minor Work Phone: [facility] 11-12-2024 02:26-0400 Body weight 118.6 kg Broderick Minor Work Phone: [facility] 11-07-2024 11:15-0400 Body temperature 98.2 [degF] Broderick Minor Work Phone: [facility] 11-07-2024 11:15-0400 Diastolic blood pressure 47 mm[Hg] Broderick Suazopkins Work Phone: [facility] 11-07-2024 11:15-0400 Heart rate 80 /min Broderick Suazopkins Work Phone: [facility] 11-07-2024 11:15-0400 Respiratory rate 16 /min Broderick Suazopkins Work Phone: [facility] 11-07-2024 11:15-0400 SaO2% (BldA) [Mass fraction] 94 % Broderick Suazopkins Work Phone: [facility] 11-07-2024 11:15-0400 Systolic blood pressure 111 mm[Hg] Broderick Suazopkins Work Phone: [facility] 11-07-2024 06:00-0400 Body mass index (BMI) [Ratio] 48.4 kg/m2 Broderick Suazopkins Work Phone: [facility] 11-07-2024 06:00-0400 Body weight 119.3 kg Broderick Suazopkins Work Phone: [facility] 11-04-2024 14:55-0400 Body temperature 97.8 [degF] Broderick [place] Work Phone: [facility] 11-04-2024 14:55-0400 Diastolic blood pressure 70 mm[Hg] Broderick Mily Work Phone: [facility] 11-04-2024 14:55-0400 Heart rate 93 /min Broderick [place] Work Phone: [facility] 11-04-2024 14:55-0400 Respiratory rate 16 /min Broderick Minor Work Phone: [facility] 11-04-2024 14:55-0400 SaO2% (BldA) [Mass fraction] 96 % Broderick Minor Work Phone: [facility] 11-04-2024 14:55-0400 Systolic blood pressure 109 mm[Hg] Broderick Minor Work Phone: [facility] 11-04-2024 12:30-0400 Body height 157.48 cm Broderick Minor Work Phone: [facility] 11-04-2024 12:30-0400 Body mass index (BMI) [Ratio] 47.1 kg/m2 Broderick Minor Work Phone: [facility] 11-04-2024 12:30-0400 Body weight 116.9 kg Broderick Minor Work Phone: [facility] 09-21-2024 15:16-0500 Body mass index (BMI) [Ratio] 45.4 kg/m2 Broderick Minor Work Phone: [facility] 09-21-2024 15:12-0500 Body temperature 98 [degF] Broderick Minor Work Phone: [facility] 09-21-2024 15:12-0500 Diastolic blood pressure 56 mm[Hg] Broderick Suazopkins Work Phone: [facility] 09-21-2024 15:12-0500 Heart rate 84 /min Broderick Minor Work Phone: [facility] 09-21-2024 15:12-0500 Respiratory rate 17 /min Broderick Suazopkins Work Phone: [facility] 09-21-2024 15:12-0500 SaO2% (BldA) [Mass fraction] 92 % Broderick Suazopkins Work Phone: [facility] 09-21-2024 15:12-0500 Systolic blood pressure 125 mm[Hg] Broderick Mily Work Phone: [facility] 09-18-2024 15:49-0500 Body height 161.29 cm Broderick Minor Work Phone: [facility] 09-18-2024 15:49-0500 Body weight 118.3 kg Broderick Minor Work Phone: [facility] 09-18-2024 15:42-0500 Inhaled oxygen flow rate 2 L/min Broderick Minor Work Phone: [facility] 03-22-2024 12:58-0400 Body height 159.5 cm Meagan Yusuf PA-C Work Phone: [facility] 03-22-2024 12:58-0400 Body mass index (BMI) [Ratio] 47.78 kg/m2 Meagan Yusuf PA-C Work Phone: [facility] 03-22-2024 12:58-0400 Body temperature 97.5 [degF] Meagan Yusuf PA-C Work Phone: [facility] 03-22-2024 12:58-0400 Body weight 121.56 kg Meagan Yusuf PA-C Work Phone: [facility] 03-22-2024 12:58-0400 Diastolic blood pressure 72 mm[Hg] Meagan Yusuf PA-C Work Phone: [facility] 03-22-2024 12:58-0400 Heart rate 90 /min Meagan Yusuf PA-C Work Phone: [facility] 03-22-2024 12:58-0400 Respiratory rate 20 /min Meagan Yusuf PA-C Work Phone: [facility] 03-22-2024 12:58-0400 SaO2% (BldA) [Mass fraction] 93 % Meagan Yusuf PA-C Work Phone: [facility] 03-22-2024 12:58-0400 Systolic blood pressure 122 mm[Hg] Meagan Yusuf PA-C Work Phone: [facility] 11-24-2023 11:52-0400 Body temperature 98 [degF] [facility] 11-24-2023 11:52-0400 Diastolic blood pressure 53 mm[Hg] [facility] 11-24-2023 11:52-0400 Heart rate 80 /min [facility] 11-24-2023 11:52-0400 Respiratory rate 16 /min [facility] 11-24-2023 11:52-0400 SaO2% (BldA) [Mass fraction] 93 % [facility] 11-24-2023 11:52-0400 Systolic blood pressure 101 mm[Hg] [facility] 11-24-2023 09:25-0400 Body height 161.29 cm [facility] 11-24-2023 09:25-0400 Body mass index (BMI) [Ratio] 46.5 kg/m2 [facility] 11-24-2023 09:25-0400 Body weight 121 kg [facility] 11-14-2023 14:03-0400 Body mass index (BMI) [Ratio] 46.73 kg/m2 Homer Bradford MD Work Phone: [facility] 11-14-2023 14:03-0400 Body weight 121.56 kg Homer Bradford MD Work Phone: [facility] 11-14-2023 14:03-0400 Diastolic blood pressure 64 mm[Hg] Homer Bradford MD Work Phone: [facility] 11-14-2023 14:03-0400 Heart rate 70 /min Homer Bradford MD Work Phone: [facility] 11-14-2023 14:03-0400 Respiratory rate 16 /min Homer Bradford MD Work Phone: [facility] 11-14-2023 14:03-0400 Systolic blood pressure 104 mm[Hg] Homer Bradford MD Work Phone: [facility] 09-27-2023 13:16-0400 Body height 161.3 cm Meagan Yusuf PA-C Work Phone: [facility] 09-27-2023 13:16-0400 Body temperature 98.6 [degF] Meagan Yusuf PA-C Work Phone: [facility] 09-27-2023 13:16-0400 Body weight 120.66 kg Meagan Yusuf PA-C Work Phone: [facility] 09-27-2023 13:16-0400 Diastolic blood pressure 70 mm[Hg] Meagan Yusuf PA-C Work Phone: [facility] 09-27-2023 13:16-0400 Heart rate 95 /min Meagan Yusuf PA-C Work Phone: [facility] 09-27-2023 13:16-0400 Respiratory rate 18 /min Meagan Yusuf PA-C Work Phone: [facility] 09-27-2023 13:16-0400 Systolic blood pressure 102 mm[Hg] Meagan Yusuf PA-C Work Phone: [facility] 03-28-2023 13:07-0400 Diastolic blood pressure 57 mm[Hg] Dr. Homer Bradford Work Phone: [facility] 03-28-2023 13:07-0400 Heart rate 86 /min Dr. Homer Bradford Work Phone: [facility] 03-28-2023 13:07-0400 Respiratory rate 15 /min Dr. Homer Bradford Work Phone: [facility] 03-28-2023 13:07-0400 SaO2% (BldA) [Mass fraction] 98 % Dr. Homer Bradford Work Phone: [facility] 03-28-2023 13:07-0400 Systolic blood pressure 112 mm[Hg] Dr. Homer Bradford Work Phone: [facility] 03-28-2023 10:30-0400 Inhaled oxygen flow rate 2 L/min Dr. Homer Bradford Work Phone: [facility] 03-28-2023 10:10-0400 Body height 161.[address] Homer Bradford Work Phone: [facility] 03-28-2023 10:10-0400 Body mass index (BMI) [Ratio] 47 kg/m2 Dr. Homer Bradford Work Phone: [facility] 03-28-2023 10:10-0400 Body temperature 98.1 [degF] Dr. Homer Bradford Work Phone: [facility] 03-28-2023 10:10-0400 Body weight 122.[address] Homer Bradford Work Phone: [facility] 03-11-2023 13:45-0400 Body height 161.3 cm Caterina Anjelica PA-C Work Phone: [facility] 03-11-2023 13:45-0400 Body temperature 97 [degF] Caterina Applewood PA-C Work Phone: [facility] 03-11-2023 13:45-0400 Body weight 122.47 kg Caterina Applewood PA-C Work Phone: [facility] 03-11-2023 13:45-0400 Diastolic blood pressure 72 mm[Hg] Caterina Anjelica PA-C Work Phone: [facility] 03-11-2023 13:45-0400 Heart rate 84 /min Caterina Applewood PA-C Work Phone: [facility] 03-11-2023 13:45-0400 Respiratory rate 22 /min Caterina Applewood PA-C Work Phone: [facility] 03-11-2023 13:45-0400 SaO2% (BldA) [Mass fraction] 95 % Caterina Applewood PA-C Work Phone: [facility] 03-11-2023 13:45-0400 Systolic blood pressure 112 mm[Hg] Caterina Applewood PA-C Work Phone: [facility] 03-04-2023 09:06-0400 Body height 160.[address] Homer Bradford Work Phone: [facility] 03-04-2023 09:06-0400 Body mass index (BMI) [Ratio] 47.5 kg/m2 Dr. Homer Bradford Work Phone: [facility] 03-04-2023 09:06-0400 Body temperature 97.2 [degF] Dr. Homer Bradford Work Phone: [facility] 03-04-2023 09:06-0400 Body weight 121.[address] Homer Bradford Work Phone: [facility] 03-04-2023 09:06-0400 Diastolic blood pressure 69 mm[Hg] Dr. Homer Bradford Work Phone: [facility] 03-04-2023 09:06-0400 Heart rate 92 /min Dr. Homer Bradford Work Phone: [facility] 03-04-2023 09:06-0400 Respiratory rate 22 /min Dr. Homer Bradford Work Phone: [facility] 03-04-2023 09:06-0400 SaO2% (BldA) [Mass fraction] 97 % Dr. Homer Bradford Work Phone: [facility] 03-04-2023 09:06-0400 Systolic blood pressure 103 mm[Hg] Dr. Homer Bradford Work Phone: [facility] 02-28-2023 13:58-0400 Body temperature 98.1 [degF] Meagan MAY-C Work Phone: [facility] 02-28-2023 13:58-0400 Body weight 122.47 kg Meagan MAY-C Work Phone: [facility] 02-28-2023 13:58-0400 Diastolic blood pressure 66 mm[Hg] Meagan MAY-C Work Phone: [facility] 02-28-2023 13:58-0400 Heart rate 90 /min Meagan MAY-C Work Phone: [facility] 02-28-2023 13:58-0400 Respiratory rate 20 /min Meagan Yusuf PA-C Work Phone: [facility] 02-28-2023 13:58-0400 SaO2% (BldA) [Mass fraction] 92 % Meagan Yusuf PA-C Work Phone: [facility] 02-28-2023 13:58-0400 Systolic blood pressure 100 mm[Hg] Meagan Yusuf PA-C Work Phone: [facility] 12-01-2022 15:41-0400 Heart rate 112 /min [facility] 12-01-2022 15:41-0400 Respiratory rate 18 /min [facility] 12-01-2022 15:41-0400 SaO2% (BldA) [Mass fraction] 96 % [facility] 12-01-2022 14:27-0400 Body height 160.02 cm [facility] 12-01-2022 14:27-0400 Body mass index (BMI) [Ratio] 49.6 kg/m2 [facility] 12-01-2022 14:27-0400 Body temperature 98.2 [degF] [facility] 12-01-2022 14:27-0400 Body weight 127 kg [facility] 12-01-2022 14:27-0400 Diastolic blood pressure 84 mm[Hg] [facility] 12-01-2022 14:27-0400 Systolic blood pressure 129 mm[Hg] [facility] 10-21-2022 12:24-0400 Body temperature 98.4 [degF] Meagan Yusuf PA-C Work Phone: [facility] 10-21-2022 12:24-0400 Diastolic blood pressure 76 mm[Hg] Meagan Yusuf PA-C Work Phone: [facility] 10-21-2022 12:24-0400 Heart rate 96 /min Meagan Yusuf PA-C Work Phone: [facility] 10-21-2022 12:24-0400 Respiratory rate 20 /min Meagan Yusuf PA-C Work Phone: [facility] 10-21-2022 12:24-0400 Systolic blood pressure 124 mm[Hg] Meagan Yusuf PA-C Work Phone: [facility] 10-04-2022 18:18-0400 Body weight 123.38 kg Azam Fam MD Work Phone: [facility] 10-04-2022 18:18-0400 Diastolic blood pressure 78 mm[Hg] Azam Fam MD Work Phone: [facility] 10-04-2022 18:18-0400 Heart rate 90 /min Azam Fam MD Work Phone: [facility] 10-04-2022 18:18-0400 Respiratory rate 20 /min Azam Fam MD Work Phone: [facility] 10-04-2022 18:18-0400 Systolic blood pressure 124 mm[Hg] Azam Fam MD Work Phone: [facility] 09-12-2022 11:07-0500 Diastolic blood pressure 60 mm[Hg] [facility] 09-12-2022 11:07-0500 Heart rate 98 /min [facility] 09-12-2022 11:07-0500 SaO2% (BldA) [Mass fraction] 99 % [facility] 09-12-2022 11:07-0500 Systolic blood pressure 126 mm[Hg] [facility] 09-12-2022 10:53-0500 Body height 157.48 cm [facility] 09-12-2022 10:53-0500 Body mass index (BMI) [Ratio] 50.3 kg/m2 [facility] 09-12-2022 10:53-0500 Body temperature 98 [degF] [facility] 09-12-2022 10:53-0500 Body weight 124.73 kg [facility] 09-12-2022 10:53-0500 Respiratory rate 24 /min [facility] 07-15-2022 13:48-0500 Body weight 119.3 kg Meagan Yusuf PA-C Work Phone: [facility] 07-15-2022 13:48-0500 Diastolic blood pressure 60 mm[Hg] Meagan Yusuf PA-C Work Phone: [facility] 07-15-2022 13:48-0500 Heart rate 76 /min Meagan Yusuf PA-C Work Phone: [facility] 07-15-2022 13:48-0500 Respiratory rate 18 /min Meagan Yusuf PA-C Work Phone: [facility] 07-15-2022 13:48-0500 Systolic blood pressure 102 mm[Hg] Meagan Yusuf PA-C Work Phone: [facility] 06-09-2022 15:03-0500 Body height 162.6 cm Homer Bradford MD Work Phone: [facility] 06-09-2022 15:03-0500 Body weight 119.3 kg Homer Bradford MD Work Phone: [facility] 06-09-2022 15:03-0500 Diastolic blood pressure 60 mm[Hg] Homer Bradford MD Work Phone: [facility] 06-09-2022 15:03-0500 Heart rate 72 /min Homer Bradford MD Work Phone: [facility] 06-09-2022 15:03-0500 Respiratory rate 18 /min Homer Bradford MD Work Phone: [facility] 06-09-2022 15:03-0500 Systolic blood pressure 104 mm[Hg] Homer Bradford MD Work Phone: [facility] 02-25-2022 09:48-0400 Body height 160.[address] Homer Bradford Work Phone: [facility] Work Phone: 02-25-2022 09:48-0400 Body mass index (BMI) [Ratio] 43.5 kg/m2 Dr. Homer Bradford Work Phone: [facility] Work Phone: 02-25-2022 09:48-0400 Body temperature 97.2 [degF] Dr. Homer Bradford Work Phone: [facility] Work Phone: 02-25-2022 09:48-0400 Body weight 111.[address] Homer Bradford Work Phone: [facility] Work Phone: 02-25-2022 09:48-0400 Diastolic blood pressure 56 mm[Hg] Dr. Homer Bradford Work Phone: [facility] Work Phone: 02-25-2022 09:48-0400 Heart rate 79 /min Dr. Homer Bradford Work Phone: [facility] Work Phone: 02-25-2022 09:48-0400 Respiratory rate 19 /min Dr. Homer Bradford Work Phone: [facility] Work Phone: 02-25-2022 09:48-0400 SaO2% (BldA) [Mass fraction] 96 % Dr. Homer Bradford Work Phone: [facility] Work Phone: 02-25-2022 09:48-0400 Systolic blood pressure 92 mm[Hg] Dr. Homer Bradford Work Phone: [facility] Work Phone: 02-23-2022 14:24-0400 Body weight 102.[address] Homer Bradford Work Phone: [facility] Work Phone: 02-23-2022 14:24-0400 Heart rate 77 /min Dr. Homer Bradford Work Phone: [facility] Work Phone: 02-23-2022 14:24-0400 SaO2% (BldA) [Mass fraction] 95 % Dr. Homer Bradford Work Phone: [facility] Work Phone: 01-05-2022 06:21-0400 Body height 160.[address] Homer Bradford Work Phone: [facility] Work Phone: 01-05-2022 06:21-0400 Body mass index (BMI) [Ratio] 41.1 kg/m2 Dr. Homer Bradford Work Phone: [facility] Work Phone: 01-05-2022 06:21-0400 Body temperature 98.2 [degF] Dr. Homer Bradford Work Phone: [facility] Work Phone: 01-05-2022 06:21-0400 Body weight 105.[address] Homer Bradford Work Phone: [facility] Work Phone: 01-05-2022 06:21-0400 Diastolic blood pressure 56 mm[Hg] Dr. Homer Bradford Work Phone: [facility] Work Phone: 01-05-2022 06:21-0400 Heart rate 75 /min Dr. Homer Bradford Work Phone: [facility] Work Phone: 01-05-2022 06:21-0400 Respiratory rate 18 /min Dr. Homer Bradford Work Phone: [facility] Work Phone: 01-05-2022 06:21-0400 SaO2% (BldA) [Mass fraction] 92 % Dr. Homer Bradford Work Phone: [facility] Work Phone: 01-05-2022 06:21-0400 Systolic blood pressure 107 mm[Hg] Dr. Homer Bradford Work Phone: [facility] Work Phone: 12-21-2021 15:57-0400 Body height 167.7 cm ROMEO SIERRA MD [facility] 12-21-2021 15:57-0400 Body temperature 98.6 [degF] ROMEO SIERRA MD [facility] 12-21-2021 15:57-0400 Body weight 104.5 kg ROMEO SIERRA MD [facility] 12-21-2021 15:57-0400 Diastolic blood pressure 66 mm[Hg] ROMEO SIERRA MD [facility] 12-21-2021 15:57-0400 Heart rate 116 /min ROMEO SIERRA MD [facility] 12-21-2021 15:57-0400 Respiratory rate 24 /min ROMEO SIERRA MD [facility] 12-21-2021 15:57-0400 Systolic blood pressure 137 mm[Hg] ROMEO SIERRA MD [facility] 11-27-2021 14:13-0400 Body temperature 98.2 [degF] Homer Bradford MD Work Phone: [facility] 11-27-2021 14:13-0400 Body weight 106.05 kg Homer Bradford MD Work Phone: [facility] 11-27-2021 14:13-0400 Diastolic blood pressure 64 mm[Hg] Homer Bradford MD Work Phone: [facility] 11-27-2021 14:13-0400 Heart rate 68 /min Homer Bradford MD Work Phone: [facility] 11-27-2021 14:13-0400 Respiratory rate 20 /min Homer Bradford MD Work Phone: [facility] 11-27-2021 14:13-0400 Systolic blood pressure 96 mm[Hg] Homer Bradford MD Work Phone: [facility] 10-14-2021 16:24-0400 Body temperature 97.2 [degF] Dick Dodd MD Work Phone: [facility] 10-14-2021 16:24-0400 Body weight 108.68 kg Dick Dodd MD Work Phone: [facility] 10-14-2021 16:24-0400 Diastolic blood pressure 62 mm[Hg] Dick Dodd MD Work Phone: [facility] 10-14-2021 16:24-0400 Heart rate 76 /min Dick Dodd MD Work Phone: [facility] 10-14-2021 16:24-0400 Respiratory rate 18 /min Dick Dodd MD Work Phone: [facility] 10-14-2021 16:24-0400 SaO2% (BldA) [Mass fraction] 95 % Dick Dodd MD Work Phone: [facility] 10-14-2021 16:24-0400 Systolic blood pressure 112 mm[Hg] Dick Dodd MD Work Phone: [facility] 09-28-2021 10:03-0400 Body height 160.[address] Homer Bradford Work Phone: [facility] Work Phone: 09-28-2021 10:03-0400 Body mass index (BMI) [Ratio] 42.5 kg/m2 Dr. Homer Bradford Work Phone: [facility] Work Phone: 09-28-2021 10:03-0400 Body temperature 98.6 [degF] Dr. Homer Bradford Work Phone: [facility] Work Phone: 09-28-2021 10:03-0400 Body weight 108.[address] Homer Bradford Work Phone: [facility] Work Phone: 09-28-2021 10:03-0400 Diastolic blood pressure 76 mm[Hg] Dr. Homer Bradford Work Phone: [facility] Work Phone: 09-28-2021 10:03-0400 Heart rate 82 /min Dr. Homer Bradford Work Phone: [facility] Work Phone: 09-28-2021 10:03-0400 Respiratory rate 19 /min Dr. Homer Bradford Work Phone: [facility] Work Phone: 09-28-2021 10:03-0400 SaO2% (BldA) [Mass fraction] 94 % Dr. Homer Bradford Work Phone: [facility] Work Phone: 09-28-2021 10:03-0400 Systolic blood pressure 117 mm[Hg] Dr. Homer Bradford Work Phone: [facility] Work Phone: 09-07-2021 10:31-0500 Body temperature 97.8 [degF] Dr. Homer Bradford Work Phone: [facility] Work Phone: 09-07-2021 10:31-0500 Diastolic blood pressure 67 mm[Hg] Dr. Homer Bradford Work Phone: [facility] Work Phone: 09-07-2021 10:31-0500 Heart rate 69 /min Dr. Homer Bradford Work Phone: [facility] Work Phone: 09-07-2021 10:31-0500 Respiratory rate 17 /min Dr. Homer Bradford Work Phone: [facility] Work Phone: 09-07-2021 10:31-0500 SaO2% (BldA) [Mass fraction] 94 % Dr. Homer Bradford Work Phone: [facility] Work Phone: 09-07-2021 10:31-0500 Systolic blood pressure 89 mm[Hg] Dr. Homer Bradford Work Phone: [facility] Work Phone: 09-07-2021 04:04-0500 Body weight 109.[address] Homer Bradford Work Phone: [facility] Work Phone: 08-29-2021 09:33-0500 Inhaled oxygen concentration 45 % Dr. Homer Bradford Work Phone: [facility] Work Phone: 08-25-2021 19:16-0500 Body mass index (BMI) [Ratio] 43.7 kg/m2 Dr. Homer Bradford Work Phone: [facility] Work Phone: 04-26-2017 14:20-0400 BMI (Body Mass Index) 42.62 kg/m2 Dorothy Fletcher MD [facility] 04-26-2017 14:20-0400 Body Temperature 97.4 [degF] Dorothy Fletcher MD [facility] 04-26-2017 14:20-0400 Body Temperature 97.39 [degF] Dorothy Fletcher MD [facility] 04-26-2017 14:20-0400 BP Diastolic 81 mm[Hg] Dorothy Fletcher MD [facility] 04-26-2017 14:20-0400 BP Systolic 123 mm[Hg] Dorothy Fletcher MD [facility] 04-26-2017 14:20-0400 Height 160.02 cm Dorothy Fletcher MD [facility] 04-26-2017 14:20-0400 Pulse (Heart Rate) 58 /min Dorothy Fletcher MD [facility] 04-26-2017 14:20-0400 Respiratory Rate 16 /min Dorothy Fletcher MD [facility] 04-26-2017 14:20-0400 Weight 109.14 kg Dorothy Fletcher MD [facility] 04-26-2017 [id number] Weight 109.[address] [facility] Encounters Encounter Date Encounter Type Care Provider Facility Start: 05-06-2025 ambulatory Homer Geronimoey Facility :[facility] Start: 04-30-2025 End: 04-30-2025 Emergency department patient visit Dr. Ortiz Pinto MD -Emergency Department Work Phone: Start: 04-27-2025 ambulatory Homer Bradford Facility :[facility] Start: 04-04-2025 End: 04-04-2025 ambulatory ORTIZ MASSEY Facility:[facility] Start: 03-27-2025 End: 03-28-2025 Telephone encounter Homer Bradford MD Work Phone: [facility] Comment on above: Letter Start: 03-26-2025 End: 03-26-2025 Refill Homer Bradford MD Work Phone: [facility] Comment on above: Refill Request Start: 03-25-2025 End: 03-25-2025 Telephone encounter Homer Bradford MD Work Phone: [facility] Comment on above: Letter Start: 03-21-2025 End: 03-21-2025 Patient encounter procedure Alize Wilcox OD Work Phone: Ophthalmology Comment on above: Type 2 diabetes elroy itus without retinopathy (HCC) (Primary Dx); Nuclear sclerosis of both eyes; Regular astigmatism of both eyes; Presbyopia; Meibomian gland dysfunction (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 eyes Start: 03-21-2025 End: 03-21-2025 ambulatory ALIZE WILCOX Facility:[facility] Start: 03-19-2025 End: 03-19-2025 Telephone encounter Zoila Palaciosmurali CASTING WHEEL OPERATOR Navigation Start: 03-19-2025 End: 04-16-[address] Vijay Love MD -[facility] Work Phone: Start: 03-19-2025 End: 04-16-2025 ambulatory Broderick Minor Work Phone: -[facility] Start: 03-14-2025 End: 03-14-2025 Orders Only Ortiz Massey MD Work Phone: Orthopaedics Comment on above: Left shoulder pain, unspecified chronicity (Primary Dx) Start: 03-11-2025 End: 03-11-[address] Jennifer Alba MD -[facility] Work Phone: Start: 03-11-2025 End: 03-11-2025 Dr. Jennifer Alba MD -[facility] Work Phone: Start: 03-11-2025 End: 03-11-2025 ambulatory Broderick Suazopkins Work Phone: -[facility] Start: 03-05-2025 End: 03-15-2025 Telephone encounter Zoilakrunal Robbinsbárbara CASTING WHEEL OPERATOR Navigation Start: 03-04-2025 End: 03-05-2025 Telephone encounter Zoila Schlecjose cruzy CASTING WHEEL OPERATOR Navigation Start: 03-01-2025 End: 03-02-2025 Refill Homer Bradford MD Work Phone: [facility] Comment on above: Refill Request Start: 02-27-2025 End: 02-27-[address] Jennifer Alba MD -[facility] Work Phone: Start: 02-27-2025 End: 02-27-2025 Dr. Jennifer Alba MD -[facility] Work Phone: Start: 02-27-2025 End: 02-27-2025 ambulatory Broderick Suazopkins Work Phone: -[facility] Start: 02-21-2025 Encounter for genera l adult medical examination without abnormal findings HOMER BRADFORD [facility] Start: 02-21-2025 Patient encounter status Jatinder Bradford MD Work Phone: [facility] Start: 02-21-2025 End: 02-21-2025 ambulatory HOMER BRADFORD Facility:[facility] Start: 02-19-2025 End: 03-17-[address] Vijay Love MD -Wound Healing [facility] Work Phone: Start: 02-19-2025 Dr. Vijay Love MD -[facility] Work Phone: Start: 02-19-2025 End: 03-17-2025 ambulatory Broderick Minor Work Phone: -[facility] Start: 01-31-2025 End: 01-31-2025 Patient encounter procedure Taylor RASHID -[facility] Work Phone: Start: 01-31-2025 End: 01-31-2025 ambulatory Broderick Minor Work Phone: -[facility] Start: 01-31-2025 End: 01-31-2025 Taylor [facility]ASHID [facility] Work Phone: Start: 2025 Non-patient / Non-visit Dr. Vijay Love MD -[facility] Start: 2025 Dr. Vijay Love MD -[facility] Start: 2025 End: 02-14-[address] Vijay Love MD -[facility] Work Phone: Start: 2025 End: 02-14-2025 Dr. Vijay Love MD -W[facility] He[facility] Work Phone: Start: 2025 End: 02-14-2025 Refill Homer Bradford MD Work Phone: [facility] Comment on above: Refill Request Start: 01-28-2025 End: 2025 Follow-up encounter Meagan Yusuf PA-C Work Phone: [facility] [place] Start: 01-25-2025 End: 01-25-2025 Office outpatient visit 15 minutes Meagan Yusuf PA-C Work Phone: [facility] [place] Comment on above: Urinary frequency (P rimary Dx); Dysuria; Pressure injury of sacral region, stage 2 (HCC) Start: 01-25-2025 End: 01-25-2025 ambulatory MEAGAN YUSUF Facility:[facility] Start: 01-21-2025 End: 01-25-2025 Follow-up encounter Meagan Yusuf PA-C Work Phone: [facility] [place] Comment on above: Results Refill Request Start: 01-17-2025 End: 01-17-2025 [facility] Facility:[facility] Start: 01-17-2025 End: 01-17-2025 Office outpatient visit 25 minutes Meagan Yusuf PA-C Work Phone: [facility] [place] Comment on above: Sepsis, due to unspe cified organism, unspecified whether acute organ dysfunction present (HCC) (Primary Dx); ASHD (arteriosclerotic heart disease); Chronic obstructive pulmonary disease, unspecified COPD type (HCC); Wound of left lower extremity, subsequent encounter; Type 2 diabetes mellitus with stage 3b chronic kidney disease, without long-term current use of insulin (HCC); Paroxysmal atrial fibrillation (HCC); Mixed hyperlipidemia; Stage 3b chronic kidney disease (HCC) Start: 01-17-2025 End: 01-17-2025 ambulatory MEAGAN LANCASTER Facility:[facility] Start: 01-15-2025 Non-patient / Non-visit Dr. Jennifer bermudez MD -[facility] Work Phone: Start: 01-15-2025 Dr. Jennifer Alba MD -[facility] Work Phone: Start: 01-11-2025 End: 01-11-2025 Telephone encounter Homer Bradford MD Work Phone: [facility] [place] Comment on above: Forms (CMN) Start: 01-11-2025 Non-patient / Non-visit Dr. Peter Herbert MD -[facility] Work Phone: Start: 01-11-2025 Dr. Peter Herbert MD -[facility] Work Phone: Start: 01-10-2025 ambulatory Homer Bradford Facility :[facility] Start: 01-10-2025 Non-patient / Non-visit Dr. Wilfredo vallejo MD -[facility] Start: 01-10-2025 Dr. Wilfredo Shelby MD -[facility] Start: 01-10-2025 Non-patient / Non-visit Dr. Dallin camargo DO -[facility] Start: 01-10-2025 Dr. Dallin Christopher DO [facility] -[facility] Start: 01-09-2025 End: 01-09-2025 Chart abstracting Homer Bradford MD Work Phone: [facility] Comment on above: Received Outside Med ical Records ([facility] Admission records) Start: 01-09-2025 Non-patient / Non-visit Dr. Guevara [facility] Work Phone: Start: 01-09-2025 Dr. Luis Antonio Navarro [facility] Work Phone: Start: 01-08-2025 ambulatory Homer Bradford Facility :[facility] Start: 01-08-2025 End: 01-11-2025 Evaluation and management of inpatient Broderick Minor Work Phone: [facility] Work Phone: Start: 01-08-2025 End: 01-11-2025 Dr. Lauren Vela MD -Intensive Care Un it Work Phone: Start: 01-07-2025 End: 01-07-2025 Refill Homer Bradford MD Work Phone: [facility] Comment on above: Refill Request Start: 12-26-2024 End: 12-26-2024 ambulatory Homer Bradford MD Work Phone: [facility] [place] Comment on above: A Message from Dr. Lianne murguia Start: 12-26-2024 End: 12-26-2024 E-mail encounter from caregiver Homer Bradford MD Work Phone: Family [facility] [place] Start: 12-25-2024 End: 01-04-2025 Telephone encounter Homer Bradford MD Work Phone: Family [facility] [place] Comment on above: Results Start: 12-18-2024 End: 12-18-2024 ambulatory HOMER BRADFORD Facility:[facility] Start: 12-18-2024 End: 12-18-2024 Ophthalmic examination and evaluation Homer Bradford MD Work Phone: [facility] Start: 12-18-2024 End: 12-18-2024 Patient encounter procedure Homer Bradford MD Work Phone: [facility] [place] Comment on above: Type 2 diabetes elroy itus with stage 3b chronic kidney disease, without long-term current use of insulin ([facility]) (Primary Dx); Diabetic eye exam ([facility]); Mixed hyperlipidemia; History of CVA (cerebrovascular accident); Chronic obstructive pulmonary disease, unspecified COPD type ([facility]); Nodule of left lung; Chronic insomnia; Migraine without aura and without status migrainosus, not intractable; Tardive dyskinesia; Hypotension, unspecified hypotension type; Gastroesophageal reflux disease without esophagitis; ASHD (arteriosclerotic heart disease); Paroxysmal atrial fibrillation ([facility]); Stage 3b chronic kidney disease ([facility]); Bilateral leg edema; Bipolar affective disorder, remission status unspecified ([facility]); Major depressive disorder, recurrent episode, moderate ([facility]); Low vitamin B12 level; Obesity, Class III, BMI >= 40; Smoker; Mixed incontinence urge and stress (male)(female); Medication management Start: 12-18-2024 End: 12-18-2024 ambulatory HOMER BRADFORD Facility:[facility] Start: 12-07-2024 End: 12-11-2024 Telephone encounter Homer Bradford MD Work Phone: [facility] [place] Comment on above: Orders (for incontin ence supplies) Start: 11-29-2024 End: 11-29-2024 Chart abstracting Rajani Stuart [facility] Comment on above: ER F/U ([facility] ER ) Start: 11-14-2024 End: 11-14-2024 Dr. Wyatt Amos DO -Emergency Department Work Phone: Start: 11-14-2024 End: 11-14-2024 Emergency department patient visit Homer Sanchez Facility:[facility] Start: 11-13-2024 End: 11-13-2024 Chart abstracting Rajani Gr[facility] Comment on above: ER F/U ([facility] 11/13/19 25) Start: 11-12-2024 End: 11-12-2024 Dr. [facility] Work Phone: Start: 11-12-2024 End: 11-12-2024 Emergency department patient visit Homer Sanchez Facility:[facility] Start: 11-07-2024 Dr. Azam kevin DO -[facility] Work Phone: Start: 11-06-2024 Dr. Azam kevin -[facility] Work Phone: Start: 11-05-2024 Dr. Azam kevin [facility] Work Phone: Start: 11-05-2024 End: 11-05-2024 Chart abstracting Homer Bradford MD Work Phone: [facility] Comment on above: ER Discharge Summary (H&P/) Start: 11-04-2024 End: 11-07-2024 Evaluation and management of inpatient Dr. Lauren Vela MD -Medical Surgical 3 Work Phone: Start: 11-04-2024 ambulatory [facility] Facility :[facility] Start: 11-04-2024 Non-patient / Non-visit Dr. Lauren Vela MD -[facility] Work Phone: Start: 11-04-2024 End: 11-07-2024 Dr. Azam Guillen DO -Medical Surgical 3 Work Phone: Start: 09-21-2024 Non-patient / Non-visit Dr. Marco Jones MD [facility] Work Phone: Start: 09-21-2024 Dr. Marco Jones MD [facility] Work Phone: Start: 09-20-2024 Non-patient / Non-visit Dr. Marco Jones MD [facility] Work Phone: Start: 09-20-2024 Dr. Marco Jones MD [facility] Work Phone: Start: 09-19-2024 Non-patient / Non-visit Dr. Marco Jones MD [facility] Work Phone: Start: 09-19-2024 Dr. Marco Jones MD [facility] Work Phone: Start: 09-18-2024 Non-patient / Non-visit Dr. Latisha Collins MD [facility] Work Phone: Start: 09-18-2024 Dr. Guevara Collins MD [facility] Work Phone: Start: 09-17-2024 End: 09-17-2024 Chart abstracting Homer Bradford MD Work Phone: [facility] Comment on above: Outside Neurology Start: 09-17-2024 Non-patient / Non-visit Dr. Latisha Collins MD [facility] Work Phone: Start: 09-17-2024 Dr. Guevara Collins MD [facility] Work Phone: Start: 09-16-2024 Non-patient / Non-visit Dr. Latisha Collins MD [facility] Work Phone: Start: 09-16-2024 Dr. Guevara Collins MD [facility] Work Phone: Start: 09-15-2024 Non-patient / Non-visit Dr. Latisha Collins MD [facility] Work Phone: Start: 09-15-2024 Dr. Guevara Collins MD [facility] Work Phone: Start: 09-14-2024 Non-patient / Non-visit Dr. Latisha Collins MD [facility] Work Phone: Start: 09-14-2024 Dr. Guevara Collins MD [facility] Work Phone: Start: 09-13-2024 Non-patient / Non-visit Dr. Latisha Collins MD [facility] Work Phone: Start: 09-13-2024 Dr. Guevara Collins MD [facility] Work Phone: Start: 09-13-2024 ambulatory [facility] Facility :[facility] Start: 09-13-2024 Non-patient / Non-visit Dr. Osiris Garcia MD [facility] Start: 09-13-2024 Dr. Genoveva Garcia MD [facility] Start: 09-13-2024 End: 09-13-2024 Chart abstracting Homer Bradford MD Work Phone: [facility] Comment on above: ER Discharge Summary (H&P) Start: 09-12-2024 Non-patient / Non-visit Dr. Wilfredo rendon [facility] Work Phone: Start: 09-12-2024 ambulatory [facility] Facility :[facility] Start: 09-12-2024 End: 09-21-2024 Evaluation and management of inpatient Dr. Marco Jones MD -Progressive Care Unit Work Phone: Start: 09-12-2024 End: 09-21-2024 Dr. Marco Jones MD -[facility] Work Phone: Start: 06-20-2024 End: 06-20-2024 Refill Homer Bradford MD Work Phone: [facility] [place] Comment on above: Refill Request Start: 04-27-2024 End: 04-28-2024 Refill Homer Bradford MD Work Phone: [facility] [place] Comment on above: Refill Request Start: 03-29-2024 End: 03-29-2024 Refill Homer Bradford MD Work Phone: [facility] [place] Comment on above: Refill Request Start: 03-26-2024 End: 03-26-2024 Chart abstracting Homer Bradford MD Work Phone: [facility] [place] Comment on above: Outside Derm Start: 03-23-2024 End: 03-26-2024 Telephone encounter Meagan Yusuf PA-C Work Phone: [facility] [place] Comment on above: Results Start: 03-22-2024 End: 03-22-2024 Patient encounter procedure Meagan Yusuf PA-C Work Phone: [facility] [place] Comment on above: Well adult exam (Lara radhika Dx); Stage 3b chronic kidney disease (HCC); Type 2 diabetes mellitus with stage 3b chronic kidney disease, without long-term current use of insulin (HCC); Gastroesophageal reflux disease without esophagitis; Chronic obstructive pulmonary disease, unspecified COPD type (HCC); Paroxysmal atrial fibrillation (HCC); Mixed hyperlipidemia; Low vitamin B12 level; Obesity, Class III, BMI >= 40; Medication management; Subacute cough Start: 03-22-2024 End: 03-22-2024 Patient encounter status Meagan Yusuf PA-C Work Phone: [facility] Work Phone: Start: 03-02-2024 End: 03-05-2024 Telephone encounter Homer Bradford MD Work Phone: [facility] [place] Comment on above: CMN for incontinent supplies Start: 02-01-2024 Telephone encounter Homer Bradford MD Work Phone: [facility] [place] Comment on above: re-fax form Home Car e Delivered Start: 01-30-2024 Telephone encounter Homer Bradford MD Work Phone: [facility] Comment on above: Orders Start: 01-18-2024 Telephone encounter Rajanisterling Granger MA [facility] Comment on above: Orders (HomeCare Del ivered ) Start: 01-04-2024 Refill Homer helms MD Work Phone: [facility] Comment on above: Refill Request Start: 12-24-2023 Telephone encounter Homer Bradford MD Work Phone: [facility] Comment on above: Results Start: 12-23-2023 Documentation procedure Mammog marcelo Coordinator [facility] Department Start: 12-23-2023 Letter encounter Mammography Coordinator [facility] Department Start: 12-22-2023 End: 12-22-2023 Subsequent hospital visit by physician Screen Mammo [facility] Mamm[facility] Comment on above: Encounter for screen ing mammogram for breast cancer [Z12.31] Start: 11-29-2023 End: 11-29-2023 OT/PT/Speech Visit Antwan Cope PT Work Phone: [facility] Comment on above: Rotator cuff disorde r, left Start: 11-25-2023 Chart abstracting Homer epps MD Work Phone: [facility] Comment on above: Ext / Labs, D/C repo rt & Op report Start: 11-24-2023 End: 11-24-2023 Admission to same day surgery center [facility] Start: 11-24-2023 End: 11-24-2023 ambulatory [facility] Work Phone: Start: 11-17-2023 ambulatory Homer helms MD Work Phone: [facility] Start: 11-16-2023 Telephone encounter Meagan mitchell PA-C Work Phone: [facility] Comment on above: Results Start: 11-15-2023 End: 11-15-2023 ambulatory [facility] Work Phone: Start: 11-15-2023 End: 11-15-2023 Patient encounter procedure [facility] [place] Work Phone: Start: 11-15-2023 Telephone encounter Rajani Granger MA [facility] [place] Comment on above: Patient Update Start: 11-14-2023 End: 11-14-2023 Ophthalmic examination and evaluation Homer Bradford MD Work Phone: [facility] Start: 11-14-2023 End: 11-14-2023 Patient encounter procedure Homer Bradford MD Work Phone: [facility] [place] Comment on above: Type 2 diabetes elroy itus with stage 3b chronic kidney disease, without long-term current use of insulin (HCC) (Primary Dx); Diabetic eye exam ([facility]); Mixed hyperlipidemia; Hypotension, unspecified hypotension type; ASHD (arteriosclerotic heart disease); Paroxysmal atrial fibrillation ([facility]); Bilateral leg edema; Gastroesophageal reflux disease without esophagitis; History of CVA (cerebrovascular accident); Chronic obstructive pulmonary disease, unspecified COPD type ([facility]); Stage 3b chronic kidney disease ([facility]); Migraine without aura and without status migrainosus, not intractable; Bipolar affective disorder, remission status unspecified ([facility]); Major depressive disorder, recurrent episode, moderate ([facility]); Extrapyramidal reaction; Tardive dyskinesia; Chronic insomnia; Smoker; Low vitamin B12 level; Mixed incontinence urge and stress (male)(female); Diabetic foot ([facility]); Obesity, Class III, BMI >= 40; Encounter for screening mammogram for breast cancer Start: 11-11-2023 End: 11-11-2023 Patient encounter procedure Jarod Godwin DO Work Phone: [facility] [place] Comment on above: Rotator cuff disorde r, left (Primary Dx); Obesity, Class III, BMI >= 40 Start: 11-11-2023 End: 11-11-2023 Subsequent hospital visit by physician Nieves [facility] [place]ar Work Phone: Radiology Comment on above: Chronic pain of both shoulders [M25.511, G89.29, M25.512] Start: 09-30-2023 Telephone encounter Homer Bradford MD Work Phone: [facility] [place] Comment on above: Patient Update Start: 09-28-2023 Telephone encounter Meagan mitchell PA-C Work Phone: [facility] Comment on above: Results Start: 09-27-2023 End: 09-27-2023 Patient encounter procedure Meagan Yusuf PA-C Work Phone: [facility] Comment on above: Chronic pain of both shoulders (Primary Dx); Type 2 diabetes mellitus without complication, without long-term current use of insulin (HCC); Major depressive disorder, recurrent episode, moderate (HCC); Gastroesophageal reflux disease without esophagitis; Mixed hyperlipidemia Start: 09-15-2023 Refill Homer helms MD Work Phone: [facility] Comment on above: Refill Request Start: 07-20-2023 ambulatory Homer helms MD Work Phone: Internal [facility] [place] Start: 05-12-2023 Chart abstracting Homer epps MD Work Phone: [facility] Comment on above: Outside Imaging Start: 05-11-2023 End: 05-11-[address] Homer Bradford Work Phone: [facility] Work Phone: Start: 05-11-2023 End: 05-11-[address] Homer Bradford Work Phone: [facility] Work Phone: Start: 05-06-2023 Telephone encounter Homer Bradford MD Work Phone: [facility] Comment on above: Patient Question Start: 04-29-2023 Refill Homer helms MD Work Phone: [facility] Comment on above: Refill Request Start: 04-01-2023 Refill Homer helms MD Work Phone: [facility] Comment on above: Refill Request Start: 03-28-2023 Chart abstracting Homer epps MD Work Phone: [facility] Comment on above: ext document Start: 03-28-2023 End: 03-28-[address] Homer Bradford [facility] Work Phone: Start: 03-11-2023 End: 03-11-2023 Patient encounter procedure Caterina Dejesus PA-C Work Phone: General Surgery Comment on above: Screening for colon cancer Start: 03-04-2023 Telephone encounter Meagan mitchell PA-C Work Phone: [facility] Comment on above: Results Start: 03-04-2023 End: 03-04-[address] Homer Bradford Work Phone: [facility] Work Phone: Start: 03-04-2023 End: 03-04-[address] Homer Bradford Work Phone: [facility]-Pulmonary Medicine [facility] Work Phone: Start: 02-28-2023 Telephone encounter Meagan mitchell PA-C Work Phone: [facility] Comment on above: Pulmonology CT Scan Start: 02-28-2023 End: 02-28-2023 Patient encounter procedure Meagan Yusuf PA-C Work Phone: [facility] Comment on above: Mixed hyperlipidemia (Primary Dx); Type 2 diabetes mellitus without complication, with long-term current use of insulin (HCC); Chronic obstructive pulmonary disease, unspecified COPD type (HCC); Morbid obesity due to excess calories (HCC); Stage 3b chronic kidney disease (HCC); Screening for colon cancer Start: 02-15-2023 Chart abstracting Homer epps MD Work Phone: [facility] Comment on above: Outside Imaging Start: 02-14-2023 End: 02-14-2023 ambulatory [facility] Work Phone: Start: 02-14-2023 End: 02-14-2023 Patient encounter procedure [facility]-Cat Scan, [facility] Work Phone: Start: 02-03-2023 Telephone encounter Dennys Knapp Work Phone: Podiatry Comment on above: Results Start: 02-01-2023 Refill Homer helms MD Work Phone: [facility] Comment on above: Refill Request Start: 01-12-2023 End: 01-12-2023 Patient encounter procedure Dennys Pool Work Phone: Podiatry Comment on above: Other diabetic neuro logical complication associated with type 2 diabetes mellitus (HCC) (Primary Dx); Onychomycosis; Pain in toe of left foot; Pain in toe of right foot; Hyperkeratosis; Diminished pulses in lower extremity Start: 01-04-2023 End: 01-04-2023 Patient encounter procedure Alize Wilcox OD Work Phone: Ophthalmology Comment on above: Hordeolum externum o f right lower eyelid (Primary Dx); Meibomian gland dysfunction (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 eyes; Type 2 diabetes mellitus without retinopathy (HCC); Nuclear sclerosis of both eyes; Presbyopia Start: 12-01-2022 End: 12-01-2022 Emergency department patient visit [facility]-Emergency Department Work Phone: Start: 11-18-2022 Refill Homer helms MD Work Phone: [facility] Comment on above: Refill Request Start: 10-22-2022 Telephone encounter Homer Bradford MD Work Phone: [facility] Comment on above: Results Start: 10-21-2022 End: 10-21-2022 Refill Homer Bradford MD Work Phone: [facility] Comment on above: Refill Request Leg cramps (Primary Dx) Start: 10-04-2022 End: 10-04-2022 Patient encounter procedure Azam Fam MD Work Phone: [facility] Comment on above: Rash (Primary Dx); Hives Start: 10-04-2022 ambulatory Homer helms MD Work Phone: [facility] Comment on above: Rash Start: 10-02-2022 Chart abstracting Homer epps MD Work Phone: [facility] Comment on above: Consult (Neurology / ) Start: 09-17-2022 Chart abstracting Homer epps MD Work Phone: [facility] Comment on above: ER F/U ([facility] ) Start: 09-16-2022 Telephone encounter 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 Work 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: [facility] Comment on above: Orders Start: 09-12-2022 End: 09-12-2022 [facility] Start: 08-05-2022 End: 08-05-2022 Patient encounter procedure Dennys Pool Work Phone: Podiatry Comment on above: Other diabetic neuro logical complication associated with type 2 diabetes mellitus (HCC) (Primary Dx); Onychomycosis; Pain in toe of left foot; Pain in toe of right foot; Hyperkeratosis Start: 07-28-2022 ambulatory Homer helms MD Work Phone: Internal Medicine [facility] [place] Start: 07-16-2022 Telephone encounter Homer Bradford MD Work Phone: [facility] Comment on above: Results Start: 07-15-2022 Telephone encounter Homer Bradford MD Work Phone: [facility] Comment on above: Fax for Incontinence Supplies Start: 07-15-2022 End: 07-20-2022 Patient encounter procedure Meagan Yusuf PA-C Work Phone: [facility] Comment on above: Leg cramps (Primary Dx) Start: 07-07-2022 Telephone encounter Zoila Hood [facility] Comment on above: Transportation Start: 06-14-2022 Telephone encounter Homer Bradford MD Work Phone: [facility] Comment on above: Medication Question Social Work Services Start: 06-09-2022 End: 06-09-2022 Ophthalmic examination and evaluation Homer Bradford MD Work Phone: [facility] Start: 06-09-2022 End: 06-09-2022 Patient encounter procedure Homer Bradford MD Work Phone: [facility] Comment on above: Well adult exam (Lara garrido Dx); Type 2 diabetes mellitus without complication, with long-term current use of insulin (HCC); Diabetic eye exam (HCC); Diabetic foot ([facility]); Mixed hyperlipidemia; Gastroesophageal reflux disease without esophagitis; Hypotension, unspecified hypotension type; Migraine without aura and without status migrainosus, not intractable; Tardive dyskinesia; Chronic insomnia; Chronic obstructive pulmonary disease, unspecified COPD type ([facility]); ASHD (arteriosclerotic heart disease); Paroxysmal atrial fibrillation ([facility]); Bilateral leg edema; Stage 3b chronic kidney disease ([facility]); History of CVA (cerebrovascular accident); Mixed incontinence urge and stress (male)(female); Incontinence of feces, unspecified fecal incontinence type; Smoker; Bipolar affective disorder, remission status unspecified ([facility]); Major depressive disorder, recurrent episode, moderate ([facility]); [place] or callus; Colon cancer screening; Medication management; Leg cramps Start: 06-09-2022 End: 06-09-2022 Patient encounter status Homer Bradford MD Work Phone: [facility] Start: 05-05-2022 Refill Homer helms MD Work Phone: [facility] Comment on above: Refill Request Start: 04-16-2022 Telephone encounter Homer Bradford MD Work Phone: [facility] Comment on above: Orders Start: 02-25-2022 End: 02-25-[address] Homer Bradford [facility] Start: 02-24-2022 Non-patient / Non-visit Dr. Edison Bradford Work Phone: [facility] Start: 02-23-2022 End: 02-23-[address] Homer Bradford Work Phone: [facility]-Pulmonary Services/Neurology Start: 02-17-2022 Non-patient / Non-visit Dr. Edison Bradford Work Phone: [facility] Start: 02-17-2022 End: 02-17-[address] Homer Bradford Work Phone: [facility]-Pulmonary Services/Neurology Start: 02-12-2022 End: 02-12-2022 Patient encounter procedure Dennys Yrn Work Phone: Podiatry Comment on above: Onychomycosis (Prima ry Dx); Pain in toe of left foot; Pain in toe of right foot; Diminished pulses in lower extremity; Other diabetic neurological complication associated with type 2 diabetes mellitus (HCC) Refill Request Start: 02-11-2022 End: 02-11-[address] Homer Bradford Work Phone: [facility] Start: 02-05-2022 Telephone encounter Meagan mitchell PA-C Work Phone: [facility] Comment on above: Results Start: 01-05-2022 End: 01-05-[address] Homer Bradford [facility] Start: 12-28-2021 Telephone encounter Meagan mitchell PA-C Work Phone: [facility] Comment on above: Results Start: 12-21-2021 End: 12-21-2021 Emergency department patient visit ROMEO SIERRA MD [facility] Start: 12-21-2021 Telephone encounter Meagan mitchell PA-C Work Phone: [facility] Comment on above: repeat lab results Start: 12-16-2021 Telephone encounter Homer Bradford MD Work Phone: [facility] Comment on above: Results Start: 12-15-2021 Telephone encounter [facility] Comment on above: Patient Update Start: 12-15-2021 End: 12-15-[address] Homer Bradford Work Phone: [facility]-Radiology, [facility] Start: 12-11-2021 Telephone encounter Homer Bradford MD Work Phone: [facility] Comment on above: Orders Question Start: 12-06-2021 Telephone encounter Homer Bradford MD Work Phone: [facility] Comment on above: Results Start: 11-27-2021 End: 11-27-2021 Ophthalmic examination and evaluation Homer Bradford MD [facility] Start: 11-27-2021 End: 11-27-2021 Patient encounter procedure Homer Bradford MD Work Phone: [facility] Comment on above: Type 2 diabetes elroy itus without complication, with long-term current use of insulin ([facility]) (Primary Dx); Diabetic eye exam ([facility]); Mixed hyperlipidemia; Gastroesophageal reflux disease without esophagitis; Stage 3b chronic kidney disease ([facility]); Bilateral leg edema; Bipolar affective disorder, remission status unspecified ([facility]); Major depressive disorder, recurrent episode, moderate ([facility]); Paroxysmal atrial fibrillation ([facility]); ASHD (arteriosclerotic heart disease); Chronic obstructive pulmonary disease, unspecified COPD type ([facility]); Migraine without aura and without status migrainosus, not intractable; Hypotension, unspecified hypotension type; History of CVA (cerebrovascular accident); Chronic insomnia; Tardive dyskinesia; Morbid obesity due to excess calories ([facility]); Smoker; Extrapyramidal reaction; Mixed incontinence urge and stress (male)(female) Start: 11-20-2021 Refill Homer helms MD [facility] Comment on above: Refill Request Start: 11-19-2021 Telephone encounter Homer Bradford [facility] Comment on above: Orders Start: 10-20-2021 Telephone encounter Homer Bradford MD Work Phone: [facility] Comment on above: Supplies Needed Start: 10-19-2021 Telephone encounter Homer Bradford MD Work Phone: Internal Medicine [place] Comment on above: DME company and supp lies. Start: 10-15-2021 Refill Homer helms MD Work Phone: [facility] Comment on above: Refill Request Start: 10-14-2021 End: 10-14-2021 Patient encounter procedure Dick Dodd MD Work Phone: [facility] Comment on above: History of recent pn eumonia (Primary Dx); History of respiratory failure; Physical deconditioning; Muscle weakness (generalized); Dysphagia, unspecified type; Type 2 diabetes mellitus without complication, with long-term current use of insulin (HCC); Gastroesophageal reflux disease without esophagitis; Chronic obstructive pulmonary disease, unspecified COPD type ([facility]); Irritable bowel syndrome with both constipation and diarrhea Start: 09-28-2021 End: 09-28-[address] Homer Bradford [facility] Start: 09-07-2021 Non-patient / Non-visit Dr. Edison Bradford Work Phone: [facility] Inpatient Physicians Start: 09-06-2021 Non-patient / Non-visit Dr. Edison Bradford Work Phone: [facility] Start: 09-06-2021 Non-patient / Non-visit Dr. Edison Bradford Work Phone: [facility] Start: 09-05-2021 Non-patient / Non-visit Dr. Edison Bradford Work Phone: [facility] Start: 09-05-2021 Non-patient / Non-visit Dr. Edison Bradford Work Phone: [facility] Start: 09-04-2021 Non-patient / Non-visit Dr. Edison Bradford Work Phone: [facility] Start: 09-04-2021 Non-patient / Non-visit Dr. Edison Bradford Work Phone: [facility] Start: 09-03-2021 Non-patient / Non-visit Dr. Edison Bradford Work Phone: [facility] Start: 09-03-2021 Non-patient / Non-visit Dr. Edison Bradford Work Phone: [facility] Start: 09-02-2021 Non-patient / Non-visit Dr. Edison Bradford Work Phone: [facility] Start: 09-01-2021 Non-patient / Non-visit Dr. Edison Bradford Work Phone: [phone] [place] [address] Start: 08-31-2021 Non-patient / Non-visit Dr. Edison Bradford Work Phone: [facility] Start: 08-31-2021 Non-patient / Non-visit Dr. Edison Bradford Work Phone: [facility] Start: 08-30-2021 Non-patient / Non-visit Dr. Edison Bradford Work Phone: [facility] Start: 08-29-2021 Non-patient / Non-visit Dr. Edison Bradford Work Phone: [facility] Start: 08-28-2021 Non-patient / Non-visit Dr. Edison Bradford Work Phone: [facility] Start: 08-27-2021 Non-patient / Non-visit Dr. Edison Bradford Work Phone: [facility] Start: 08-27-2021 Non-patient / Non-visit Dr. Edison Bradford Work Phone: [facility] Start: 08-27-2021 Non-patient / Non-visit Dr. Edison Bradford Work Phone: [facility] Start: 08-26-2021 Non-patient / Non-visit Dr. Edison Bradford Work Phone: [facility] Start: 08-26-2021 Non-patient / Non-visit Dr. Edison Bradford Work Phone: [facility] Start: 08-25-2021 Non-patient / Non-visit Dr. Edison Bradford Work Phone: [facility] Start: 08-25-2021 End: 09-07-2021 Evaluation and management of inpatient Dr. Homer Bradford Work Phone: [facility]-Progressive Care Unit Start: 11-20-2020 End: 11-20-2020 Subsequent hospital visit by physician Xr [facility] Work Phone: Radiology Comment on above: Left hip pain [M25.5 52] Start: 03-12-2019 Ophthalmic examinati on and evaluation HOMER BRADFORD [facility] Work Phone: Start: 11-16-2018 Patient encounter status Concetta Dodd MD Work Phone: [facility] Work Phone: Start: 01-07-2012 Evaluation and management of inpatient Dr. Homer Bradford Work Phone: [facility]- Start: 01-07-2012 Broderick hawkins Work Phone: - Procedures Date Procedure Procedure Detail Performing Clinician Start: 04-30-2025 Radiologic exam ches t 2 views Broderick Minor Work Phone: Start: 04-30-2025 Estimated creatinine clearance Broderick Minor Work Phone: Start: 04-30-2025 SARS-CoV-2, Influenz a & RSV (PCR) Broderick Minor Work Phone: Start: 01-25-2025 Urnls dip stick/tabl et rgnt auto w/o microscopy Meagan Yusuf PA-C Work Phone: Start: 01-10-2025 Estimated creatinine clearance Broderick Minor Work Phone: Start: 01-10-2025 Mean corpuscular hem oglobin concentration determination Broderick Minor Work Phone: Start: 01-10-2025 Platelet mean volume determination Broderick Minor Work Phone: Start: 01-09-2025 Complete ultrasound of kidneys and bladder Broderick Minor Work Phone: Start: 01-09-2025 Blood count smear mc rscp w/mnl difrntl wbc count Broderick Minor Work Phone: Start: 01-09-2025 Nucleated red blood cell count procedure Broderick Minor Work Phone: Start: 01-08-2025 Assay of lactate Toño Minor Work Phone: Start: 01-08-2025 Plain chest X-ray Maritza valdes Mily Work Phone: Start: 01-08-2025 Carbon dioxide measu rement, partial pressure Broderick Minor Work Phone: Start: 01-08-2025 Gases blood o2 satur ation only direct dane Broderick Minor Work Phone: Start: 01-08-2025 Measurement of parti al pressure of oxygen in blood Broderick Minor Work Phone: Start: 01-08-2025 Oxygen saturation measurement Broderick Minor Work Phone: Start: 01-08-2025 CT of head without contrast Broderick Minor Work Phone: Start: 01-08-2025 Benzodiazepine measu rement, urine Broderick Minor Work Phone: Start: 01-08-2025 Blood count smear mc rscp w/mnl difrntl wbc count Broderick Minor Work Phone: Start: 01-08-2025 Calculation of inter national normalized ratio Broderick Minor Work Phone: Start: 01-08-2025 Cocaine measurement, urine Broderick Minor Work Phone: Start: 01-08-2025 Estimated creatinine clearance Broderick Minor Work Phone: Start: 01-08-2025 Mean corpuscular hem oglobin concentration determination Broderick Minor Work Phone: Start: 01-08-2025 Methadone measurement, urine Broderick Minor Work Phone: Start: 01-08-2025 Nucleated red blood cell count procedure Broderick Minor Work Phone: Start: 01-08-2025 Platelet mean volume determination Broderick Minor Work Phone: Start: 01-08-2025 Triacylglycerol lipa se measurement Broderick Minor Work Phone: Start: 01-08-2025 Urine cannabinoid measurement Broderick Minor Work Phone: Start: 01-08-2025 Urine microscopy: red cells Broderick Minor Work Phone: Start: 01-08-2025 Urine opiate measurement Broderick Minor Work Phone: Start: 01-08-2025 Urnls dip stick/tabl et reagent auto microscopy Broderick Minor Work Phone: Start: 01-08-2025 Blood culture Broderick ponce Work Phone: Start: 01-08-2025 Urine culture Broderick ponce Work Phone: Start: 11-14-2024 Computed tomography of abdomen and pelvis with intravenous contrast Broderick Minor Work Phone: Start: 11-14-2024 Urine microscopy: red cells Broderick Minor Work Phone: Start: 11-14-2024 Urnls dip stick/tabl et reagent auto microscopy Broderick Minor Work Phone: Start: 11-14-2024 Blast cell count procedure Broderick Minor Work Phone: Start: 11-14-2024 Blood count smear mc rscp w/mnl difrntl wbc count Broderick Minor Work Phone: Start: 11-14-2024 Blood disorder - ini tial assessment Broderick Minor Work Phone: Start: 11-14-2024 Cell count Broderick matta Work Phone: Start: 11-14-2024 Estimated creatinine clearance Broderick Minor Work Phone: Start: 11-14-2024 Lymphocyte percent differential count Broderick Minor Work Phone: Start: 11-14-2024 Mean corpuscular hem oglobin concentration determination Broderick Minor Work Phone: Start: 11-14-2024 Metamyelocyte percen t differential count Broderick Minor Work Phone: Start: 11-14-2024 Monocyte percent differential count Broderick Minor Work Phone: Start: 11-14-2024 Myelocyte percent differential count Broderick Minor Work Phone: Start: 11-14-2024 Neutrophil percent differential count Broderick Minor Work Phone: Start: 11-14-2024 Nucleated red blood cell count procedure Broderick Minor Work Phone: Start: 11-14-2024 Percentage plasma cell count Broderick Minor Work Phone: Start: 11-14-2024 Platelet mean volume determination Broderick Minor Work Phone: Start: 11-14-2024 Promyelocyte count, blood Broderick Minor Work Phone: Start: 11-14-2024 Reactive lymphocyte count Broderick Minor Work Phone: Start: 11-14-2024 Triacylglycerol lipa se measurement Broderick Minor Work Phone: Start: 11-12-2024 Urine culture Broderick ponce Work Phone: Start: 11-12-2024 Urine microscopy: red cells Broderick Minor Work Phone: Start: 11-12-2024 Urnls dip stick/tabl et reagent auto microscopy Broderick Minor Work Phone: Start: 11-12-2024 Blood count smear mc rscp w/mnl difrntl wbc count Broderick Minor Work Phone: Start: 11-12-2024 Estimated creatinine clearance Broderick Minor Work Phone: Start: 11-12-2024 Mean corpuscular hem oglobin concentration determination Broderick Minor Work Phone: Start: 11-12-2024 Nucleated red blood cell count procedure Broderick Minor Work Phone: Start: 11-12-2024 Platelet mean volume determination Broderick Minor Work Phone: Start: 11-05-2024 Blood count smear mc rscp w/mnl difrntl wbc count Broderick Minor Work Phone: Start: 11-05-2024 Estimated creatinine clearance Broderick Minor Work Phone: Start: 11-05-2024 Mean corpuscular hem oglobin concentration determination Broderick Minor Work Phone: Start: 11-05-2024 Nucleated red blood cell count procedure Broderick Minor Work Phone: Start: 11-05-2024 Platelet mean volume determination Broderick Minor Work Phone: Start: 11-04-2024 Blood culture Broderick ponce Work Phone: Start: 11-04-2024 Urine culture Broderick ponce Work Phone: Start: 11-04-2024 Serum inorganic phos phate measurement Broderick Minor Work Phone: Start: 11-04-2024 Urine microscopy: red cells Broderick Minor Work Phone: Start: 11-04-2024 Urnls dip stick/tabl et reagent auto microscopy Broderick Minor Work Phone: Start: 09-19-2024 Blood count smear mc rscp w/mnl difrntl wbc count Broderick Minor Work Phone: Start: 09-19-2024 Estimated creatinine clearance Broderick Minor Work Phone: Start: 09-19-2024 Mean corpuscular hem oglobin concentration determination Broderick Minor Work Phone: Start: 09-19-2024 Nucleated red blood cell count procedure Broderick Minor Work Phone: Start: 09-19-2024 Platelet mean volume determination Broderick Minor Work Phone: Start: 09-13-2024 Assay of triglycerides Broderick Minor Work Phone: Start: 09-13-2024 Total cholesterol:HD L ratio measurement Broderick Minor Work Phone: Start: 09-12-2024 MRI of brain without contrast Broderick Minor Work Phone: Start: 09-12-2024 Magnetic resonance angiography of head without contrast Broderick Minor Work Phone: Start: 09-12-2024 Magnetic resonance angiography of neck without contrast Broderick Minor Work Phone: Start: 09-12-2024 Blood culture Broderick ponce Work Phone: Start: 09-12-2024 SARS-CoV-2, Influenz a & RSV (PCR) Broderick Minor Work Phone: Start: 09-12-2024 Urine culture Broderick ponce Work Phone: Start: 09-12-2024 Broderick matta Work Phone: Start: 09-12-2024 Urine microscopy: red cells Broderick Minor Work Phone: Start: 09-12-2024 Urnls dip stick/tabl et reagent auto microscopy Broderick Minor Work Phone: Start: 09-12-2024 CT of head without contrast Broderick Minor Work Phone: Start: 09-12-2024 Assay of lactate Toño Minor Work Phone: Start: 09-12-2024 Calculation of inter national normalized ratio Broderick Minor Work Phone: Start: 09-12-2024 Plain chest X-ray Maritza keisha Mily Work Phone: Start: 11-24-2023 Implantation of sacr al nerve stimulator Start: 11-11-2023 Arthrocentesis aspir &/inj major jt/bursa w/o us Jarod Godwin DO Work Phone: Start: 05-11-2023 CT of chest without contrast Dr. Homer Bradford Work Phone: Start: 03-28-2023 Plain chest X-ray Dr. Pepe Bradford Work Phone: Start: 03-28-2023 Plain chest X-ray Dr. Pepe Bradford Work Phone: Start: 03-28-2023 Biopsy/Inj or Needle Placement Dr. Homer Bradford Work Phone: Start: 02-14-2023 CT of chest Start: 02-11-[address] Art Bradford Work Phone: Start: 12-15-[address] Art Bradford Work Phone: Start: 09-07-2021 SARS-CoV-2 Antigen (Rapid) Dr. Homer Bradford Work Phone: Start: 08-31-[address] Art Bradford Work Phone: Start: 08-26-2021 CT angiography of ch est with contrast Dr. Homer Bradford Work Phone: Start: 08-25-2021 Plain chest X-ray Dr. Pepe Bradford Work Phone: Start: 08-25-2021 Bacteria identified in Blood by Culture Dr. Homer Bradford Work Phone: Start: 08-25-[address] Jatinder Bradford Work Phone: Start: 06-24-2021 Mammography Dick Escobar MD Work Phone: Start: 12-30-2020 Cardiac catheterization ROMEO SIERRA MD Comment on above: Non obstructive CAD Start: 11-20-2020 Radex hip unilateral with pelvis 2-3 views Homer Bradford MD Work Phone: Start: 09-28-2011 Colonoscopy Dick Escobar MD Work Phone: Arthroscopic repair of rotator cuff ROMEO SIERRA MD H/O: surgery Broderick adams Work Phone: History of cholecystectomy R yael Minor Work Phone: History of decompres lukas of median nerve Broderick Minor Work Phone: History of tonsillectomy Chauncey luis Minor Work Phone: Plan of Treatment Date Care Activity Detail Author Start: 03-25-2026 End: 03-25-2026 Patient encounter procedure 03/25/2026 1:00 PM EDT Office Visit [facility] [address] [place], [place] [id number] Alize Wilcox, OD [address] [place] [address] Diagnostics[facility] [address] [place] [address] 1 YR F/U for diabetic eye exam. Ophthalmology Comment on above: 1 YR F/U for diabetic eye exam. Start: 03-21-2026 Glaucoma screening Dilated Retinal Exam [facility] Start: 02-21-2026 Annual PCP Team Chronic Disease Visit Annual PCP Team Chronic Disease Visit [facility] Start: 01-25-2026 Annual PCP Team Chronic Disease Visit Annual PCP Team Chronic Disease Visit [facility] Start: 01-17-2026 Annual PCP Team Chronic Disease Visit Annual PCP Team Chronic Disease Visit [facility] Start: 01-17-2026 Complete blood count Hemoglobin/Hematocrit [facility] Start: 01-17-2026 Creatinine measurement Serum Creatinine [facility] Start: 12-18-2025 Annual PCP Team Chronic Disease Visit Annual PCP Team Chronic Disease Visit [facility] Start: 12-18-2025 Complete blood count Hemoglobin/Hematocrit [facility] Start: 12-18-2025 Creatinine measurement Serum Creatinine [facility] Start: 12-18-2025 Hepatitis B surface antibody level LDL Cholesterol [facility] Start: 06-19-2025 Hemoglobin A1c measurement HbA1C [facility] Start: 05-24-2025 End: 05-24-2025 Patient encounter procedure 05/24/2025 12:20 PM EST Office Visit Family Nydia Sadler [address] [place] [id number] Meagan Yusuf PA-C [address] [place] [id number] 3 month follow up [facility]o Comment on above: 3 month follow up Start: 04-30-2025 [facility] Start: 04-30-2025 [facility] Start: 04-04-2025 End: 04-04-2025 Patient encounter procedure 04/04/2025 11:20 AM EDT Office Visit Orthopaedics [address] [place] [address] Ortiz Massey MD [address] [place] [address] Rotator cuff disorder, left [M67.912] Orthopaedics Comment on above: Rotator cuff disorder, left [M67.912] Start: 04-03-2025 End: 04-03-2025 Patient encounter procedure 04/03/2025 3:00 PM EDT Appointment Mammogram [address] [place] [address] Dx: Encounter for screening mammogram for breast cancer [Z12.31] Mammogram Comment on above: Dx: Encounter for screening mammogram fo r breast cancer [Z12.31] Start: 03-22-2025 Annual PCP Team Chronic Disease Visit Annual PCP Team Chronic Disease Visit [facility] Start: 03-22-2025 Creatinine measurement Serum Creatinine [facility] Start: 03-22-2025 Diabetic foot examination Diabetic Foot Exam [facility] Start: 03-22-2025 Hepatitis B surface antibody level LDL Cholesterol [facility] Start: 03-21-2025 End: 03-21-2025 Patient encounter procedure 03/21/2025 1:30 PM EDT Office Visit [facility] [address] [place] [address] Alize Wilcox, OD [address] [place] [address] [facility] [address] [address] Dx: Diabetic eye exam (HCC) [Z01.00, E11.9] Ophthalmology Comment on above: Dx: Diabetic eye exam (HCC) [Z01.00, E11 .9] Start: 03-18-2025 Screening for malignant neoplasm of colon Colorectal Cancer Screening [facility] Comment on above: Postponed from 2007 (Declined at t his time) Start: 03-11-2025 US scan of bladder [facility] Start: 03-04-2025 End: 03-04-2025 Patient encounter procedure 03/04/2025 1:15 PM EDT Office Visit [facility] [address] [place] [address] Alize Wilcox, OD [address] [place] [address] [facility] [address] [address] Dx: Diabetic eye exam (HCC) [Z01.00, E11.9] Ophthalmology Comment on above: Dx: Diabetic eye exam (HCC) [Z01.00, E11 .9] Start: 02-21-2025 End: 02-21-2025 Patient encounter procedure 02/21/2025 1:00 PM EDT Office Visit [facility] [place] [address] [facility] [place] [address] Homer Bradford MD [address] [place] [address] 2 month follow up 4 complexity [facility] Comment on above: 2 month follow up 4 complexity Start: 01-31-2025 [facility] Start: 01-25-2025 End: 04-26-2025 Bacteria identified in Urine by Culture [facility] Work Phone: Comment on above: Expected: 01/25/2025, Expires: Start: 01-25-2025 End: 01-25-2025 Patient encounter procedure 01/25/2025 11:40 AM EDT Office Visit [facility] [place] [address] [place] [address] Meagan Yusuf PA-C [address] [facility] [place] [id number] rescheduled from 01/22 [facility] Comment on above: rescheduled from 01/22 Start: 01-17-2025 End: 04-18-2025 Basic metabolic 2000 panel - Serum or Plasma [facility] Work Phone: Comment on above: Expected: 01/17/2025, Expires: Start: 01-17-2025 End: 01-17-2025 Patient encounter procedure 01/17/2025 11:40 AM EDT Office Visit [facility] [place] [address] [place] [address] Meagan Yusuf PA-C [address] [facility] [place] [id number] [facility] Medsurg for Sepsis and UTI 01/08-01/11 [facility] Comment on above: [facility] Medsurg for Sepsis and UTI Start: 01-11-2025 Patient discharge [facility] Start: 01-10-2025 Consultation for treatment [facility] Start: 01-10-2025 Physiotherapy of chest [facility] Start: 01-09-2025 [facility] Start: 01-08-2025 Care regimes management [facility] Start: 01-08-2025 Notification of physician [facility] Start: 01-08-2025 Following clinical pathway protocol [facility] Start: 01-08-2025 Aspiration precautions [facility] Start: 01-08-2025 Assessment of risk of venous thromboembolism [facility] Start: 01-08-2025 Fall prevention [facility] Start: 01-08-2025 Insertion of catheter into peripheral vein [facility] Start: 01-08-2025 Introduction of urinary catheter [facility] Start: 01-08-2025 Measuring intake and output [facility] Start: 01-08-2025 Oxygen therapy [facility] Start: 01-08-2025 Providing care according to standard [facility] Start: 01-08-2025 Provision of activity privileges [facility] Start: 01-08-2025 Referral for physical therapy [facility] Start: 01-08-2025 Referral to occupational therapist [facility] Start: 01-08-2025 Referral to service [facility] Start: 01-08-2025 Tobacco use cessation education [facility] Start: 01-08-2025 Vital signs measurements [facility] Start: 01-08-2025 Admission procedure [facility] Start: 01-08-2025 Hospital admission, emergency, from emergency room, medical nature [facility] Start: 01-08-2025 End: 01-08-2025 [facility] Start: 01-08-2025 Blood culture [facility] Start: 01-08-2025 Consultation [facility] Start: 01-08-2025 Inhalation therapy procedure [facility] Start: 01-08-2025 Patient referral to dietitian [facility] Start: 12-21-2024 Screening for malignant neoplasm of breast Mammogram Screening [facility] Start: 12-18-2024 End: 03-19-2025 Cobalamin (Vitamin B12) [Mass/volume] in Serum or Plasma [facility] Work Phone: Comment on above: Expected: 12/18/2024, Expires: Start: 12-18-2024 End: 03-19-2025 Comprehensive metabolic 2000 panel - Serum or Plasma [facility] Comment on above: Expected: 12/18/2024, Expires: Start: 12-18-2024 End: 03-19-2025 LIPID PANEL, NONFASTING [facility] Comment on above: Expected: 12/18/2024, Expires: Start: 12-18-2024 End: 03-19-2025 Magnesium [Mass/volume] in Serum or Plasma [facility] Comment on above: Expected: 12/18/2024, Expires: Start: 12-18-2024 End: 03-19-2025 Microalbumin/Creatinine [Mass Ratio] in Urine ALBUMIN/CREATININE RATIO, URINE Lab Routine Type 2 diabetes mellitus with stage 3b chronic kidney disease, without long-term current use of insulin (HCC) Expected: 12/18/2024, Expires: 03/19/2025 [facility] Comment on above: Expected: 12/18/2024, Expires: Start: 12-18-2024 End: 03-19-2025 Urinalysis complete panel - Urine URINALYSIS, WITH MICROSCOPIC Lab Routine Type 2 diabetes mellitus with stage 3b chronic kidney disease, without long-term current use of insulin (HCC) Mixed hyperlipidemia Stage 3b chronic kidney disease (HCC) Expected: 12/18/2024, Expires: 03/19/2025 [facility] Comment on above: Expected: 12/18/2024, Expires: Start: 12-18-2024 End: 12-18-2024 Patient encounter procedure 12/18/2024 11:20 AM EDT Office Visit Family [facility] [address] [facility] [place] [address] Homer Bradford MD [address] [place] [address] hospital follow up [facility] Comment on above: hospital follow up Start: 11-14-2024 End: 11-14-2024 [facility] Start: 11-14-2024 Consultation [facility] Start: 11-13-2024 Annual PCP Team Chronic Disease Visit Annual PCP Team Chronic Disease Visit [facility] Start: 11-12-2024 Insj non-ndwellg bladder catheter [facility] Start: 11-12-2024 [facility] Start: 11-12-2024 Consultation [facility] Start: 11-07-2024 End: 11-07-2024 Patient encounter procedure 11/07/2024 7:00 PM EDT Office Visit [facility] [place] [address] [place] [address] Homer Bradford MD [address] [place], [place] [address] [facility] follow up PE? had COVID [facility] [place] Comment on above: [facility] follow up PE? had COVID Start: 11-07-2024 Patient discharge [facility] Start: 11-07-2024 [facility] Start: 11-05-2024 [facility] Start: 11-04-2024 End: 11-04-2024 Following clinical pathway protocol [facility] Start: 11-04-2024 Assessment of risk of venous thromboembolism [facility] Start: 11-04-2024 Care regimes management [facility] Start: 11-04-2024 Fall prevention [facility] Start: 11-04-2024 Inhalation therapy procedure [facility] Start: 11-04-2024 Insertion of catheter into peripheral vein [facility] Start: 11-04-2024 Introduction of urinary catheter [facility] Start: 11-04-2024 Measuring intake and output [facility] Start: 11-04-2024 Notification of physician [facility] Start: 11-04-2024 Providing care according to standard [facility] Start: 11-04-2024 Provision of activity privileges [facility] Start: 11-04-2024 Referral to occupational therapist [facility] Start: 11-04-2024 Referral to service [facility] Start: 11-04-2024 Tobacco use cessation education [facility] Start: 11-04-2024 End: 11-04-2024 [facility] Start: 11-04-2024 Verification routine [facility] Start: 11-04-2024 End: 11-04-2024 [facility] Start: 11-04-2024 Admission procedure [facility] Start: 11-04-2024 Hospital admission, emergency, from emergency room, medical nature [facility] Start: 11-04-2024 Bacteria identified in Blood by Culture Blood Culture [facility] Start: 11-04-2024 Bacteria identified in Urine by Culture Urine Culture [facility] Start: 11-04-2024 Consultation [facility] Start: 09-26-2024 Annual PCP Team Chronic Disease Visit Annual PCP Team Chronic Disease Visit [facility] Start: 09-26-2024 Complete blood count Hemoglobin/Hematocrit [facility] Start: 09-26-2024 Creatinine measurement Serum Creatinine [facility] Start: 09-26-2024 Hepatitis B screening Urine Albumin:Creatinine Ratio [facility] Start: 09-26-2024 Hepatitis B surface antibody level LDL Cholesterol [facility] Start: 09-21-2024 Patient discharge [facility] Start: 09-20-2024 Care planning and problem solving actions [facility] Start: 09-20-2024 End: 09-20-2024 Patient encounter procedure 09/20/2024 10:20 AM EST Office Visit [facility] [place] [address] [place] [address] Homer Bradford MD [address] [place] [address] 6 month f/u [facility] [place] Comment on above: 6 month f/u Start: 09-19-2024 Hemoglobin A1c measurement HbA1C [facility] Start: 09-16-2024 [facility] Start: 09-13-2024 [facility] Start: 09-13-2024 Inhalation therapy procedure [facility] Start: 09-12-2024 Following clinical pathway protocol [facility] Start: 09-12-2024 Transfusion of blood product [facility] Start: 09-12-2024 Aspiration precautions [facility] Start: 09-12-2024 Assessment of risk of venous thromboembolism [facility] Start: 09-12-2024 Cardiac monitoring [facility] Start: 09-12-2024 Care regimes management [facility] Start: 09-12-2024 Catheterization of vein [facility] Start: 09-12-2024 Consultation [facility] Start: 09-12-2024 Elevation of head of bed [facility] Start: 09-12-2024 Exercises [facility] Start: 09-12-2024 Insertion of catheter into peripheral vein [facility] Start: 09-12-2024 Measuring intake and output [facility] Start: 09-12-2024 Notification of physician [facility] Start: 09-12-2024 Oxygen therapy [facility] Start: 09-12-2024 Patient referral to dietitian [facility] Start: 09-12-2024 Providing care according to standard [facility] Start: 09-12-2024 Provision of activity privileges [facility] Start: 09-12-2024 Referral to occupational therapist [facility] Start: 09-12-2024 Referral to service [facility] Start: 09-12-2024 Speech therapy assessment [facility] Start: 09-12-2024 Telemedicine consultation with patient [facility] Start: 09-12-2024 Tobacco use cessation education [facility] Start: 09-12-2024 End: 09-12-2024 [facility] Start: 09-12-2024 Vital signs measurements [facility] Start: 09-12-2024 Verification routine [facility] Start: 09-12-2024 Admission procedure [facility] Start: 09-12-2024 [facility] Start: 09-12-2024 [facility] Start: 09-12-2024 Consultation [facility] Start: 07-05-2024 End: 07-05-2024 Patient encounter procedure 07/05/2024 1:00 PM EST Office Visit [facility] [address] [place] [address] Alize Wilcox, OD [address] [place] [address] Type 2 diabetes mellitus with stage 3b chronic kidney disease, without long-term... Ophthalmology Comment on above: Type 2 diabetes mellitus with stage 3b c hronic kidney disease, without long-term... Start: 06-05-2024 End: 06-05-2024 Patient encounter procedure 06/05/2024 2:30 PM EST Office Visit [facility] [address] [place] [address] Alize Wilcox, OD [address] [place] [address] Type 2 diabetes mellitus with stage 3b chronic kidney disease, without long-term... Ophthalmology Comment on above: Type 2 diabetes mellitus with stage 3b c hronic kidney disease, without long-term... Start: 05-16-2024 Creatinine measurement Serum Creatinine [facility] Start: 04-06-2024 End: 04-06-2024 ambulatory 04/06/2024 1:30 PM EDT OT/PT/Speech Visit [facility] [address] [place] [address] Antwan Cope, PT [address] [place] [id number] rt shoulder [facility] Comment on above: rt shoulder Start: 03-30-2024 End: 03-30-2024 Patient encounter procedure 03/30/2024 1:00 PM EDT Office Visit Podiatry [address] [place] [address] Dennys Pool [address] [place] [address] [facility] Podiat[facility] Comment on above: Diab Foor F/u Start: 03-29-2024 Hemoglobin A1c measurement HbA1C [facility] Start: 03-22-2024 End: 06-21-2024 Comprehensive metabolic 2000 panel - Serum or Plasma [facility] Comment on above: Expected: 03/22/2024, Expires: Start: 03-22-2024 End: 06-21-2024 Hemoglobin A1c in Blood [facility] Work Phone: Comment on above: Expected: 03/22/2024, Expires: Start: 03-22-2024 End: 06-21-2024 LIPID PANEL, NONFASTING [facility] Comment on above: Expected: 03/22/2024, Expires: Start: 03-22-2024 End: 03-22-2024 Patient encounter procedure 03/22/2024 12:40 PM EDT Office Visit [facility] [place] [address] [place], [place] [address] Meagan Yusuf PA-C [address] [place], [place] [id number] medicare wellness [facility] [place] Comment on above: medicare wellness Start: 03-18-2024 Covid-19 Vaccine () Covid-19 Vaccine () [facility] Start: 03-18-2024 Covid-19 Vaccine () Covid-19 Vaccine () [facility] Start: 03-16-2024 End: 03-16-2024 Patient encounter procedure 03/16/2024 1:40 PM EDT Office Visit [facility] [place] [address] [place] [address] Homer Bradford MD [address] [place] [address] medicare wellness [facility] [place] Comment on above: medicare wellness Start: 03-15-2024 End: 03-15-2024 ambulatory 03/15/2024 2:00 PM EDT OT/PT/Speech Visit [facility] [address] [place] [address] Antwan Cope PT [address] [facility] [place] [id number] rt shoulder [facility] Comment on above: rt shoulder Start: 02-29-2024 ANNUAL PCP TEAM CHRONIC DISEASE VISIT ANNUAL PCP TEAM CHRONIC DISEASE VISIT [facility] Start: 02-29-2024 Hepatitis B surface antibody level LDL CHOLESTEROL [facility] Start: 02-29-2024 SERUM CREATININE SERUM CREATININE [facility] Start: 01-09-2024 End: 01-09-2024 OT/PT/Speech Visit 01/09/2024 2:00 PM EDT OT/PT/Speech Visit [facility] [address] [place] [address] Antwan Cope, PT [address] [facility] [place] [address] Rotator cuff disorder, left [M67.912] [facility] Comment on above: Rotator cuff disorder, left [M67.912] Start: 01-05-2024 Glaucoma screening Dilated Retinal Exam [facility] Start: 01-05-2024 Hepatitis C antibody, confirmatory test DILATED RETINAL EXAM [facility] Start: 12-16-2023 End: 12-16-2023 Patient encounter procedure Podiatry Comment on above: Chronic pain of both shoulders [M25.511, G89.29, M25.512] [facility]ail care Start: 11-29-2023 End: 11-29-2023 OT/PT/Speech Visit 11/29/2023 4:30 PM EDT OT/PT/Speech Visit [facility] [address] [place] [address] Antwan Cope, PT [address] [facility] [place] [address] Rotator cuff disorder, left [M67.912] [facility] Comment on above: Rotator cuff disorder, left [M67.912] Start: 11-24-2023 Patient discharge [facility] Start: 11-16-2023 End: 11-16-2023 Patient encounter procedure 11/16/2023 1:50 PM EDT Appointment Mammogram [address] [place] [address] Encounter for screening mammogram for breast cancer [Z12.31 Mammogram Comment on above: Encounter for screening mammogram for br east cancer [Z12.31 Start: 11-14-2023 End: 11-14-2023 Patient encounter procedure 11/14/2023 2:00 PM EDT Office Visit [facility] [place] [address] [place] [address] Homer Bradford MD [address] [place] [address] Lab results [facility] [place] Comment on above: Lab results Start: 11-03-2023 Complete blood count Hemoglobin/Hematocrit [facility] Start: 11-03-2023 HEMOGLOBIN/HEMATOCRIT HEMOGLOBIN/HEMATOCRIT [facility] Start: 11-03-2023 SERUM CREATININE SERUM CREATININE [facility] Start: 10-22-2023 ANNUAL PCP TEAM CHRONIC DISEASE VISIT ANNUAL PCP TEAM CHRONIC DISEASE VISIT [facility] Start: 10-22-2023 COVID-19 VACCINE (#1) COVID-19 VACCINE (#1) [facility] Comment on above: Postponed from 1962 (Declined at t his time) Start: 10-05-2023 ANNUAL PCP TEAM CHRONIC DISEASE VISIT ANNUAL PCP TEAM CHRONIC DISEASE VISIT [facility] Start: 09-27-2023 End: 12-27-2023 Hemoglobin A1c in Blood [facility] Work Phone: Comment on above: Expected: 09/27/2023, Expires: Start: 09-16-2023 ANNUAL PCP TEAM CHRONIC DISEASE VISIT ANNUAL PCP TEAM CHRONIC DISEASE VISIT [facility] Start: 09-16-2023 SERUM CREATININE SERUM CREATININE [facility] Start: 08-31-2023 Hemoglobin A1c measurement HbA1C [facility] Start: 08-31-2023 Hemoglobin A1c/Hemoglobin.total in Blood HBA1C [facility] Start: 07-15-2023 ANNUAL PCP TEAM CHRONIC DISEASE VISIT ANNUAL PCP TEAM CHRONIC DISEASE VISIT [facility] Start: 07-15-2023 HEMOGLOBIN/HEMATOCRIT HEMOGLOBIN/HEMATOCRIT [facility] Start: 07-15-2023 Hepatitis B surface antibody level LDL CHOLESTEROL [facility] Start: 07-15-2023 SERUM CREATININE SERUM CREATININE [facility] Start: 06-09-2023 3 comp foot exam completed DIABETIC FOOT EXAM [facility] Start: 06-09-2023 ANNUAL PCP TEAM CHRONIC DISEASE VISIT ANNUAL PCP TEAM CHRONIC DISEASE VISIT [facility] Start: 06-09-2023 Diabetic foot examination Diabetic Foot Exam [facility] Start: 06-09-2023 SHINGRIX VACCINE (1 of 2) SHINGRIX VACCINE (1 of 2) [facility] Comment on above: Postponed from 01/30/2012 (Insurance Cov erage) Start: 05-22-2023 HPV TESTING HPV TESTING [facility] Start: 05-22-2023 PAP TESTING PAP TESTING [facility] Start: 05-22-2023 Screening for malignant neoplasm of cervix [facility] Start: 05-11-2023 CORE NDL BX LNG/MED PERQ CORE NDL BX LNG/MED PERQ [facility] Start: 03-28-2023 Following clinical pathway protocol [facility] Start: 03-28-2023 Catheterization of vein [facility] Start: 03-28-2023 Oxygen therapy [facility] Start: 03-28-2023 Patient discharge [facility] Start: 03-28-2023 Vital signs measurements [facility] Start: 03-18-2023 Covid-19 Vaccine () Covid-19 Vaccine () [facility] Start: 02-28-2023 End: 04-30-2023 Comprehensive metabolic 2000 panel - Serum or Plasma [facility] Work Phone: Comment on above: Expected: 02/28/2023, Expires: 3 Start: 02-28-2023 End: 04-30-2023 LIPID PANEL, NONFASTING [facility] Work Phone: Comment on above: Expected: 02/28/2023, Expires: 3 Start: 02-28-2023 End: 04-30-2023 Thyrotropin [Units/volume] in Serum or Plasma [facility] Work Phone: Comment on above: Expected: 02/28/2023, Expires: 3 Start: 01-13-2023 Hemoglobin A1c/Hemoglobin.total in Blood HBA1C [facility] Start: 12-15-2022 SERUM CREATININE SERUM CREATININE [facility] Start: 12-05-2022 Hepatitis B screening URINE ALBUMIN:CREATININE RATIO [facility] Start: 12-04-2022 Hepatitis B surface antibody level LDL CHOLESTEROL [facility] Start: 12-04-2022 SERUM CREATININE SERUM CREATININE [facility] Start: 11-27-2022 ANNUAL PCP TEAM CHRONIC DISEASE VISIT ANNUAL PCP TEAM CHRONIC DISEASE VISIT [facility] Start: 10-14-2022 ANNUAL PCP TEAM CHRONIC DISEASE VISIT ANNUAL PCP TEAM CHRONIC DISEASE VISIT [facility] Start: 09-16-2022 End: 11-16-2022 Erythrocyte sedimentation rate SED RATE WESTERGREN Lab Routine Rash Expected: 09/16/2022, Expires: 11/16/2022 [facility] Work Phone: Comment on above: Expected: 09/16/2022, Expires: 3 Start: 06-24-2022 Mammography [facility] Start: 06-24-2022 Screening for malignant neoplasm of breast Mammogram Screening [facility] Start: 06-09-2022 End: 08-09-2022 CBC W Auto Differential panel - Blood CBC + DIFF Lab Routine Stage 3b chronic kidney disease (HCC) Type 2 diabetes mellitus without complication, with long-term current use of insulin (HCC) Medication management Expected: 06/09/2022, Expires: 08/09/2022 [facility] Work Phone: Comment on above: Expected: 06/09/2022, Expires: 3 Start: 06-09-2022 End: 08-09-2022 Cobalamin (Vitamin B12) [Mass/volume] in Serum or Plasma VITAMIN B12 BLOOD Lab Routine Gastroesophageal reflux disease without esophagitis Medication management Expected: 06/09/2022, Expires: 08/09/2022 [facility] Work Phone: Comment on above: Expected: 06/09/2022, Expires: 3 Start: 06-09-2022 End: 08-09-2022 Comprehensive metabolic 2000 panel - Serum or Plasma COMP METABOLIC PANEL Lab Routine Type 2 diabetes mellitus without complication, with long-term current use of insulin (HCC) Mixed hyperlipidemia Expected: 06/09/2022, Expires: 08/09/2022 [facility] Work Phone: Comment on above: Expected: 06/09/2022, Expires: 3 Start: 06-09-2022 End: 08-09-2022 Hemoglobin A1c in Blood HGB A1C Lab Routine Type 2 diabetes mellitus without complication, with long-term current use of insulin (HCC) Expected: 06/09/2022, Expires: 08/09/2022 [facility] Work Phone: Comment on above: Expected: 06/09/2022, Expires: 3 Start: 06-09-2022 End: 08-09-2022 LIPID PANEL, NONFASTING LIPID PANEL, NONFASTING Lab Routine Type 2 diabetes mellitus without complication, with long-term current use of insulin (HCC) Mixed hyperlipidemia ASHD (arteriosclerotic heart disease) Expected: 06/09/2022, Expires: 08/09/2022 [facility] Work Phone: Comment on above: Expected: 06/09/2022, Expires: 3 Start: 06-09-2022 End: 08-09-2022 Magnesium [Mass/volume] in Serum or Plasma MAGNESIUM BLD Lab Routine Gastroesophageal reflux disease without esophagitis Medication management Leg cramps Expected: 06/09/2022, Expires: 08/09/2022 [facility] Work Phone: Comment on above: Expected: 06/09/2022, Expires: 3 Start: 06-06-2022 Hemoglobin A1c/Hemoglobin.total in Blood HBA1C [facility] Start: 05-29-2022 3 comp foot exam completed DIABETIC FOOT EXAM [facility] Start: 05-29-2022 COVID-19 VACCINE (#1) COVID-19 VACCINE (#1) [facility] Comment on above: Postponed from 1967 (Declined at t his time) Postponed from 08/01 (Declined at this time) Start: 05-29-2022 COVID-19 VACCINE (1) COVID-19 VACCINE (1) [facility] Comment on above: Postponed from 1967 (Declined at t his time) Start: 05-29-2022 Hepatitis B surface antibody level LDL CHOLESTEROL [facility] Start: 05-29-2022 SERUM CREATININE SERUM CREATININE [facility] Start: 2022 Hepatitis B Vaccine (1 of 3 - Risk 3-dose series) Hepatitis B Vaccine (1 of 3 - Risk 3-dose series) [facility] Start: 2022 RSV Vaccine (1 - 1-dose 60+ series) RSV Vaccine (1 - 1-dose 60+ series) [facility] Start: 2022 RSV Vaccine (1 - Risk 60-74 years 1-dose series) RSV Vaccine (1 - Risk 60-74 years 1-dose series) [facility] Start: 01-07-2022 End: 03-09-2022 POTASSIUM BLD POTASSIUM BLD Lab Routine Hypokalemia Expected: 01/07/2022, Expires: 03/09/2022 [facility] Work Phone: Comment on above: Expected: 01/07/2022, Expires: 2 Start: 12-21-2021 End: 02-20-2022 POTASSIUM BLD POTASSIUM BLD Lab Routine Hypokalemia Expected: 12/21/2021, Expires: 02/20/2022 [facility] Work Phone: Comment on above: Expected: 12/21/2021, Expires: 2 Start: 12-16-2021 End: 02-15-2022 POTASSIUM BLD POTASSIUM BLD Lab Routine Hypokalemia Expected: 12/16/2021, Expires: 02/15/2022 [facility] Work Phone: Comment on above: Expected: 12/16/2021, Expires: 2 Start: 12-08-2021 HEMOGLOBIN/HEMATOCRIT HEMOGLOBIN/HEMATOCRIT [facility] Start: 12-06-2021 End: 02-05-2022 Basic metabolic 2000 panel - Serum or Plasma BASIC METABOLIC PNL Lab Routine Stage 3b chronic kidney disease (HCC) Expected: 12/06/2021, Expires: 02/05/2022 [facility] Work Phone: Comment on above: Expected: 12/06/2021, Expires: 2 Start: 11-27-2021 End: 01-27-2022 ALBUMIN/CREAT RATIO RND UR ALBUMIN/CREAT RATIO RND UR Lab Routine Type 2 diabetes mellitus without complication, with long-term current use of insulin (HCC) Expected: 11/27/2021, Expires: 01/27/2022 [facility] Work Phone: Comment on above: Expected: 11/27/2021, Expires: 2 Start: 11-27-2021 End: 01-27-2022 Comprehensive metabolic 2000 panel - Serum or Plasma COMP METABOLIC PANEL Lab Routine Type 2 diabetes mellitus without complication, with long-term current use of insulin (HCC) Mixed hyperlipidemia Stage 3b chronic kidney disease (HCC) Expected: 11/27/2021, Expires: 01/27/2022 [facility] Work Phone: Comment on above: Expected: 11/27/2021, Expires: 2 Start: 11-27-2021 End: 01-27-2022 Hemoglobin A1c/Hemoglobin.total in Blood HGB A1C Lab Routine Type 2 diabetes mellitus without complication, with long-term current use of insulin (HCC) Expected: 11/27/2021, Expires: 01/27/2022 [facility] Work Phone: Comment on above: Expected: 11/27/2021, Expires: 2 Start: 11-27-2021 End: 01-27-2022 LIPID PANEL, NONFASTING LIPID PANEL, NONFASTING Lab Routine Type 2 diabetes mellitus without complication, with long-term current use of insulin (HCC) Mixed hyperlipidemia Expected: 11/27/2021, Expires: 01/27/2022 [facility] Work Phone: Comment on above: Expected: 11/27/2021, Expires: 2 Start: 11-26-2021 Hemoglobin A1c/Hemoglobin.total in Blood HBA1C [facility] Start: 11-25-2021 Hepatitis B screening URINE ALBUMIN:CREATININE RATIO [facility] Start: 11-25-2021 Hepatitis C antibody, confirmatory test DILATED RETINAL EXAM [facility] Start: 11-20-2021 SHINGRIX VACCINE (1 of 2) SHINGRIX VACCINE (1 of 2) [facility] Comment on above: Postponed from 01/30/2012 (Insurance Cov erage) Start: 09-27-2021 Colonoscopy COLONOSCOPY [facility] Start: 09-27-2021 COLORECTAL CANCER SCREENING COLORECTAL CANCER SCREENING [facility] Start: 09-27-2021 Screening for malignant neoplasm of colon [facility] Start: 09-30-2019 Influenza vaccination LUNG CANCER SCREENING [facility] Start: 05-05-2017 End: 05-05-2017 Mammogram, screening Mammogram, Screening, both breasts [facility] Start: 04-26-2017 End: 04-26-2017 Endometrial bx w/wo endocervix bx w/o dilat spx Endometrial Biopsy [facility] Start: 04-26-2017 End: 04-26-[address] [facility] Start: 04-26-2017 End: 04-26-2017 Us pelvic nonobstetric real-time image complete US Pelvis [facility] Start: 04-26-2017 End: 04-26-2017 Us transvaginal US Transvaginal [facility] Start: 07-18-2012 Pneumococcal Vaccine: 50+ (2 of 2 - PCV) Pneumococcal Vaccine: 50+ (2 of 2 - PCV) [facility] Start: 01-30-2012 SHINGRIX VACCINE (1 of 2) SHINGRIX VACCINE (1 of 2) [facility] Start: 2007 COLOGUARD (FIT-DNA) COLOGUARD (FIT-DNA) [facility] Start: [address] COLONOGRAPHY [facility] Start: 2007 FECAL OCCULT BLOOD FECAL OCCULT BLOOD [facility] Start: 2007 Screening for malignant neoplasm of colon [facility] Start: 2007 SIGMOIDOSCOPY SIGMOIDOSCOPY [facility] Start: 01-30-1992 Zoledronic acid therapy ALPHA-1 ANTITRYPSIN DEFICIENCY SCREENING [facility] Start: 1981 HEPATITIS B (1 of 3 - Risk 3-dose series) HEPATITIS B (1 of 3 - Risk 3-dose series) [facility] Start: 01-30-1980 Anxiety Screening Anxiety Screening [facility] Start: 1960 COVID-19 VACCINE (#1) COVID-19 VACCINE (#1) [facility] COVID & INFLUENZA A/ B & RSV PCR, ROUTINE COVID & INFLUENZA A/B & RSV PCR, ROUTINE Microbiology Routine Subacute cough 03/22/2024 1:38 PM EDT [facility] CT Chest [facility] Work Phone: Exercise tolerance test [facility] Work Phone: Hemoglobin.gastroint maurilio nal.lower [Presence] in Stool by Immunoassay FECAL OCCULT BLOOD TEST Lab Routine Well adult exam Colon cancer screening Ordered: 06/09/2022 [facility] Work Phone: Comment on above: Ordered: 06/09/2022 End: 08-27-2023 JACI SCREENING JACI SCREENING Radiology Routine Encounter for screening mammogram for breast cancer 1 Occurrences starting 07/28/2022 until 08/27/2023 [facility] Work Phone: Comment on above: 1 Occurrences starting 07/28/2022 until 08/27/2023 End: 08-18-2024 JACI SCREENING JACI SCREENING Radiology Routine Encounter for screening mammogram for breast cancer 1 Occurrences starting 07/20/2023 until 08/18/2024 [facility] Work Phone: Comment on above: 1 Occurrences starting 07/20/2023 until 08/18/2024 Measurement of respiratory function [facility] Work Phone: End: 12-13-2024 MG Breast Screening JACI SCREENING Radiology Routine Encounter for screening mammogram for breast cancer 1 Occurrences starting 11/14/2023 until 12/13/2024 [facility] Work Phone: Comment on above: 1 Occurrences starting 11/14/2023 until 12/13/2024 MG Breast Screening JACI SCREENIN G Radiology Routine Encounter for screening mammogram for breast cancer 12/22/2023 12:53 PM EDT [facility] Work Phone: Patient Education [facility] Work Phone: Patient referral [facility] Work Phone: End: 01-13-2024 PVR ANK [facility] Vascular Lab Routine Diminished pulses in lower extremity 1 Occurrences starting 01/12/2023 until 01/13/2024 [facility] Work Phone: Comment on above: 1 Occurrences starting 01/12/2023 until 01/13/2024 SWALLOW EVALUATION SWALLOW EVALU ATION Procedures Routine Dysphagia, unspecified type Ordered: 10/14/2021 [facility] Work Phone: Comment on above: Ordered: 10/14/2021 Urine culture [facility] Urine culture [facility] End: 10-26-2024 XR Shoulder - left 3 Views XR SHOULDER GENERAL 3V OR MORE AP/TRUE AP/OTHER LEFT Radiology Routine Chronic pain of both shoulders 1 Occurrences starting 09/27/2023 until 10/26/2024 [facility] Work Phone: Comment on above: 1 Occurrences starting 09/27/2023 until 10/26/2024 XR Shoulder - left 3 Views XR SHOULDER GENERAL 3V OR MORE AP/TRUE AP/OTHER LEFT Radiology Routine Chronic pain of both shoulders 11/11/2023 1:47 PM EDT [facility] Work Phone: End: 04-13-2026 XR Shoulder - left 3 Views XR SHOULDER GENERAL 3V OR MORE AP/TRUE AP/OTHER LEFT Radiology Routine Left shoulder pain, unspecified chronicity 1 Occurrences starting 03/14/2025 until 04/13/2026 [facility] Work Phone: Comment on above: 1 Occurrences starting 03/14/2025 until 04/13/2026 End: 10-26-2024 XR Shoulder - right 3 Views XR SHOULDER GENERAL 3V OR MORE AP/TRUE AP/OTHER RIGHT Radiology Routine Chronic pain of both shoulders 1 Occurrences starting 09/27/2023 until 10/26/2024 [facility] Work Phone: Comment on above: 1 Occurrences starting 09/27/2023 until 10/26/2024 XR Shoulder - right 3 Views XR SHOULDER GENERAL 3V OR MORE AP/TRUE AP/OTHER RIGHT Radiology Routine Chronic pain of both shoulders 11/11/2023 1:47 PM EDT [facility] Immunizations Immunization Date Immunization Notes Care Provider Nick sun 12-25-2014 tetanus toxoid, redu nitin diphtheria toxoid, and acellular pertussis vaccine, adsorbed Dick Dodd MD Work Phone: [facility] Work Phone: 06-18-2014 influenza, seasonal, injectable Dick Dodd MD Work Phone: [facility] Work Phone: 07-18-[address] Homer Bradford Work Phone: [facility] 07-18-2011 influenza, seasonal, injectable, preservative free Homer Bradford MD Work Phone: [facility] 07-18-2011 pneumococcal polysaccharide vaccine, 23 valent Meagan Yusuf PA-C Work Phone: [facility] 07-18-[address] Esau Bradford Work Phone: [facility] Work Phone: 07-18-2011 pneumococcal vaccine , unspecified formulation [facility] Payers Date Payer Category Payer Self-pay [id number] 2017 Medicaid [employer] [id number] 2017-Present [phone] [address] [place] [address] Medicaid [id number] 2017 Medicaid [id number]. [id number] 2017 Unknown [id number] Unknown [id number] Unknown [id number] 2.16.840.1.734299.3.579.2.462 Unknown [id number] 2.16.840.1.813447.3.579.2.462 Unknown [id number] 2.16.840.1.732540.3.579.2.462 Unknown [id number] 2.16.840.1.065996.3.579.2.462 Unknown [id number] 2.16.840.1.995541.3.579.2.462 Unknown [id number] 2.16.840.1.052616.3.579.2.462 Unknown [id number] 2.16.840.1.888379.3.579.2.462 Unknown [id number] 2.840.1.927998.3.579.2.462 Unknown [id number] 2.840.1.199344.3.579.2.462 Unknown [id number] 2.840.1.145906.3.579.2.462 Unknown [id number] 2.840.1.880418.3.579.2.462 Unknown [id number] 2.16.840.1.665621.3.579.2.462 Unknown [id number] 2.16840.1.155822.3.579.2.462 Unknown [id number] 2.16840.1.863066.3.579.2.462 Unknown [id number] 2.840.1.962872.3.579.2.462 Unknown [id number] 2.16.840.1.125106.3.579.2.462 Unknown [id number] 2.16.840.1.822722.3.579.2.462 Unknown [id number] 2.16.840.1.963456.3.579.2.462 Unknown [id number] 2.16.840.1.276024.3.579.2.462 Unknown [id number] 2.840.1.527089.3.579.2.462 Unknown [id number] 2.16.840.1.202379.3.579.2.462 Unknown [id number] 2.16.840.1.937204.3.579.2.462 Unknown [id number] 2.16.840.1.419627.3.579.2.462 Unknown [id number] 2.16.840.1.267905.3.579.2.462 Unknown [id number] 2.16.840.1.308544.3.579.2.462 Unknown [id number] 2.16.840.1.142211.3.579.2.462 Unknown [id number] 2.16.840.1.246095.3.579.2.462 Unknown [id number] 2.16.840.1.474076.3.579.2.462 Unknown [id number] 2.16.840.1.467600.3.579.2.462 Unknown [id number] 2.16.840.1.536362.3.579.2.462 Unknown [id number] 2.16.840.1.751662.3.579.2.462 Unknown [id number] 2.16.840.1.960214.3.579.2.462 Unknown [id number] 2.16.840.1.350117.3.579.2.462 Unknown [id number] 2.16.840.1.075863.3.579.2.462 Unknown [id number] 2.16.840.1.567086.3.579.2.462 Social History Date Type Detail Facility Start: 11-26-2016 End: 03-22-2024 Tobacco smoking status NHIS Smokes tobacco daily [facility] Start: 10-17-2015 History of tobacco use Cigarette Smoker [facility] Start: 11-26-2016 End: 03-05-2025 Cigarettes smoked current (pack per day) - Reported 1.5 [facility] Start: 11-26-2016 End: 03-22-2024 Tobacco use and exposure Smokeless tobacco non-user [facility] Start: 10-14-2021 End: 03-21-2025 Alcohol intake Current non-drinker of alcohol (finding) [facility] Start: 1960 Sex Assigned At Not on file [facility] Start: 10-21-2020 End: 06-09-2022 Exposure to SARS-CoV-2 (event) Not sure [facility] Work Phone: Start: 09-28-2021 End: 11-18-2023 Tobacco smoking status NHIS Unknown if ever smoked [facility] Start: 07-01-2020 None [facility] Start: 07-01-2020 With Family [facility] Start: 09-05-2020 Cigarettes [facility] Start: 1960 Sex Assigned At Female W [facility] Work Phone: Start: 02-05-2020 End: 04-30-2025 Tobacco smoking status Heavy tobacco smoker (finding) [facility] Start: 01-12-2023 Tobacco Comment 1.5 to 2 packs/day [facility] Start: 01-12-2023 End: 03-05-2025 Tobacco use panel [facility] Start: 06-18-2012 Adult Depression Screening Assessment 0 [facility] Start: 09-21-2024 End: 11-04-2024 Sex Female (finding) [facility] NEGATED: Highlighted row [facility] Medical Equipment Procedure Code Equipment Code Equipment Original Text Equipment Identifier Dates [id number], [id number], [id number] Start: 07-01-2015 End: 09-27-2023 Comment on above: TEST BLOOD SUGAR(S) ONCE A DAY, Dx: E11.9 no insulin Use one needle per d ose per sliding scale Test blood sugar(s) 1 times daily. Dx: Type 2 DM - Controlled E11.9 Insulin: No LEAD KIT 33CM BLADDER STIM FDA Start: 08-26-2020 GENERATOR,BLADDE R STIM FDA Start: 09-09-2020 LEAD KIT 33CM BLADDER STIM FDA Start: 08-26-2020 GENERATOR,BLADDE R STIM FDA Start: 09-09-2020 LEAD KIT 33CM BLADDER STIM FDA Start: 08-26-2020 GENERATOR,BLADDE R STIM FDA Start: 09-09-2020 LEAD KIT 33CM BLADDER STIM FDA Start: 08-26-2020 GENERATOR,BLADDE R STIM FDA Start: 09-09-2020 LEAD KIT 33CM BLADDER STIM FDA Start: 08-26-2020 GENERATOR,BLADDE R STIM FDA Start: 09-09-2020 LEAD KIT 33CM BLADDER STIM FDA Start: 08-26-2020 GENERATOR,BLADDE R STIM FDA Start: 09-09-2020 LEAD KIT 33CM BLADDER STIM FDA Start: 08-26-2020 GENERATOR,BLADDE R STIM FDA Start: 09-09-2020 LEAD KIT 33CM BLADDER STIM FDA Start: 08-26-2020 GENERATOR,BLADDE R STIM FDA Start: 09-09-2020 LEAD KIT 33CM BLADDER STIM FDA Start: 08-26-2020 GENERATOR,BLADDE R STIM FDA Start: 09-09-2020 GENERATOR,BLADDE R STIM FDA Start: 09-09-2020 LEAD KIT 33CM BLADDER STIM FDA Start: 08-26-2020 GENERATOR,BLADDE R STIM FDA Start: 09-09-2020 LEAD KIT 33CM BLADDER STIM FDA Start: 08-26-2020 FDA Start: 09-09-2020 FDA Start: 08-26-2020 FDA Start: 09-09-2020 FDA Start: 08-26-2020 FDA Start: 09-09-2020 FDA Start: 08-26-2020 FDA Start: 09-09-2020 FDA Start: 08-26-2020 FDA Start: 09-09-2020 FDA Start: 08-26-2020 FDA Start: 09-09-2020 FDA Start: 08-26-2020 GENERATOR,BLADDE R STIM FDA Start: 09-09-2020 LEAD KIT 33CM BLADDER STIM FDA Start: 08-26-2020 GENERATOR,BLADDE R STIM FDA Start: 09-09-2020 LEAD KIT 33CM BLADDER STIM FDA Start: 08-26-2020 GENERATOR,BLADDE R STIM FDA Start: 09-09-2020 LEAD KIT 33CM BLADDER STIM FDA Start: 08-26-2020 Goals Date Patient Goal Desired Activity /State Functional Status Date Assessment Result Facility 01-10-2025 Functional status Chair [facility] Work Phone: 11-07-2024 Functional status Chair;Bathroom Privileg e [facility] Work Phone: 09-21-2024 Functional status Ambulates [facility] Work Phone: 12-21-2021 Functional Status Independent Matt Gutierrez [place] 09-07-2021 Functional status Patient Activity Chair [facility] Work Phone: 09-07-2021 Functional status With Assist of 2 [facility] Work Phone: 12-28-2014 Are you deaf, or do you have serious difficulty hearing No 12/28/2014 12:48 PM EDTequila Mcgill LPN No [facility] 12-28-2014 Are you blind, or do you have serious difficulty seeing, even when wearing glasses No 12/28/2014 12:48 PM Tequila Lloyd LPN No [facility] 12-28-2014 Do you have serious difficulty walking or climbing stairs Yes 12/28/2014 12:48 PM Tequila Lloyd LPN Yes [facility] 12-28-2014 Do you have difficul ty dressing or bathing No 12/28/2014 12:48 PM Tequila Lloyd LPN No [facility] 12-28-2014 Because of a physica l, mental, or emotional condition, do you have difficulty doing errands alone such as visiting a physician's office or shopping No 12/28/2014 12:48 PM Tequila Lloyd LPN No [facility] Mental Status Date Assessment Result Facility 04-30-2025 Cognitive function Level Of Cons ciousness Awake [facility] Work Phone: 01-11-2025 Cognitive function Voice/Name [facility] Work Phone: 01-08-2025 Cognitive function Touch/Shaking [facility] Work Phone: 11-07-2024 Cognitive function Voice/Name [facility] Work Phone: 11-04-2024 Cognitive function Level Of Cons ciousness Awake;Alert;Appropriate;Fol lows Commands [facility] Work Phone: 09-21-2024 Cognitive function Voice/Name [facility] Work Phone: 11-24-2023 Cognitive function Voice/Name [facility] Work Phone: 03-28-2023 Cognitive function Voice/Name [facility] Work Phone: 12-21-2021 Mental Status Orientation Oriented x 4 [facility] 09-07-2021 Cognitive function Voice/Name [facility] Work Phone: 12-28-2014 Because of a physica l, mental, or emotional condition, do you have serious difficulty concentrating, remembering, or making decisions No 12/28/2014 12:48 PM EDT Tequila Jarrell LPN No [facility] Clinical Notes 10-27-2016 to 05-01-2025 Note Date & Type Note Facility 05-01-2025 Note HNO ID: [id number] Author: JOSE JARRELL MA Service: ? Author Type: Supervisor Matrix Type: Progress Notes Filed: 05/01/2025 08:20 Note Text: Scan on 04/30/2025 9:35 PM by Provider, External, PA-C: [facility] ED [facility] 04-30-2025 Discharge summary [facility] 04-30-2025 Radiology Diagnostic study note [facility] Imaging Services [address] [place], [place] [id number] Chest PA and Lateral MR#: [id number] Acct: [id number] Name: PERNELL RODRIGUEZ [place] Rep #: [id number] : 1960 F 65 From: Nolberto Mcmanus MD PCP: Dr. Homer Bradford MD Status: REG ER Study:Chest PA and Lateral Date of Exam: 04/30/25 Exam# [id number] Ordering Dr: Lianne Pinto MD PROCEDURE: CHEST PA AND LATERAL 04/30/2025 REASON FOR EXAM: CP, SOB, COUGH, COPD TECHNIQUE: Procedure Code: RADCXR Modality: DX Procedure: CHEST PA AND LATERAL COMPARISON: 01/08/2025 FINDINGS: Lungs/Pleura: Small right pleural effusion/atelectasis. Underlying consolidation not excluded. No sizable pleural effusion on the left. No pneumothorax. Heart/Mediastinum: Within normal limits. Aortic arch calcification. Bones/Soft tissues: Mild degenerative changes of the spine. Right humeral head anchor screw. RAD/Chest PA and Lateral IMPRESSION: Small right pleural effusion/atelectasis. Underlying consolidation not excluded. Reading Location: [id number] CC: Dr. rOtiz Pinto MD; Dr. Homer Bradford MD ~ Train Announcer: Signed [facility] 04-30-2025 Discharge summary Note Date/Time April 30, 2025 9:19pm [facility] Medical Records Department [address] [place] [id number] Emergency Department Summary 04/30/25 MR#: [id number] Acct: [id number] Name: PERNELL RODRIGUEZ Rep #:[id number] : 1960 65 From: Ortiz Pinto MD PCP: Dr. Homer Bradford MD Status:REG ER Location: ED HPI History of Present Illness Chief Complaint: Chest Pain Informant: patient and EMS Narrative Narrative: Patient is a 65-year-old female with a history of COPD, asthma, and prior MIs, presenting to the ED with chest pain, dyspnea, and cough. - Reports chest pain, dyspnea, and cough for 2.5 weeks. - Chest pain began today, approximately 30 minutes before EMS arrival; describedas lower left-sided pain, exacerbated by breathing. - Pain onset followed a severe coughing episode, which also induced nausea. - Denies known fevers or lower extremity swelling. - Evaluated at an urgent care clinic yesterday, diagnosed with pneumonia based on lung auscultation, and prescribed doxycycline. - Took doxycycline today, which induced nausea. - Has a history of multiple MIs and a prior pulmonary embolism; currently on aspirin 81 mg daily. - Diagnosed with both COPD and asthma; uses a nebulizer but reports limited use due to group home restrictions. - Has a maintenance inhaler with a red top but lacks a rescue inhaler. - Reports increased wheezing and frequent coughing. - Currently residing in a homeless group home. [facility] Medical History Urinary tract infection Overactive bladder Decubitus ulcer of buttock, stage 1 Encounter for smoking cessation counseling History of COPD History of echocardiogram Wears glasses Anxiety Depression Post-menopausal History of renal disease High cholesterol Back pain TIA (transient ischemic attack) Gastric reflux Smoker Shortness of breath on exertion History of pain when walking History of edema Cardiology follow-up encounter History of heart attack Chest pain History of left heart catheterization (LHC) (~12/30/20) CKD (chronic kidney disease) stage 3, GFR 30-59 ml/min Lung nodule COPD (chronic obstructive pulmonary disease) Paroxysmal atrial fibrillation Elevated liver enzymes Acute respiratory failure with hypoxia Stroke IBS (irritable bowel syndrome) Hyperlipidemia Heart disease Migraines Frequent headaches Gastrointestinal problem Diabetes History of back problems Asthma Arthritis Home Medications ?Medication ?Instructions ?Recorded ?Last Taken ?Type apixaban 5 mg tablet (Eliquis) 5 mg PO Q12 #60 tabs Unknown Rx quetiapine 100 mg tablet 200 mg (2 x 100 mg) PO BID # 120 11/07/24 Unknown Rx Held on 01/11/25. tabs Instructions: Hold while taking Levaquin only for tomorrow trazodone 100 mg tablet 200 mg (2 x 100 mg) PO QHS # 60 tabs 11/07/24 Unknown Rx Held on 01/11/25. Instructions: Hold while taking Levaquin tomorrow. lorazepam 0.5 mg tablet 0.5 mg PO Q12H PRN anxiety 0 11/14/24 Unknown History lovastatin 40 mg tablet 20 mg PO QHS 11/14/24 Unknow n History omeprazole 40 mg capsule,delayed 40 mg PO DAILY Unknown History release aspirin 81 mg capsule 81 mg PO DAILY 01/08/25 Unkn own History furosemide 20 mg tablet 20 mg PO BID 01/08/25 Unknow n History levofloxacin 500 mg tablet 500 mg PO DAILY 1 day #1 TA B 01/11/25 Unknown Rx mupirocin 2 % topical ointment 1 applic topical TID 07 /15/25 Unknown History nitrofurantoin 1 cap PO BID 01/29/25 Unknow n History monohydrate/macrocrystals 100 mg capsule quetiapine 200 mg tablet,extended PO 01/29/25 Unknown History release 24 hr spironolactone 25 mg tablet 25 mg PO DAILY 01/29/25 Un known History vibegron 75 mg tablet (Gemtesa) 75 mg PO DAILY 5 Unknown History citalopram 10 mg tablet 10 mg PO DAILY 01/31/25 Unkn own History ipratropium 0.5 mg-albuterol 3 mg 3 ml continuous nebu lization ONCE 01/31/25 Unknown Clinic (2.5 mg base)/3 mL nebulization shortness of breath #3 mL soln ipratropium 0.5 mg-albuterol 3 mg 3 ml inhalation Q20M PRN shortness 01/31/25 Unknown Rx (2.5 mg base)/3 mL nebulization of breath 1 month #90 mL soln nitroglycerin 0.4 mg sublingual 0.4 mg sublingual ELZA Y 01/31/25 Unknown History tablet Gemtesa 75 mg tablet (vibegron) 75 mg PO QDAY #90 tabs 02/27/25 Unknown Rx methenamine hippurate 1 gram tablet 1 g PO BID #180 ta bs 02/27/25 Unknown Rx albuterol sulfate 90 mcg/actuation 2 puff inhalation Q 6H PRN 04/24/25 Unknown Rx aerosol inhaler shortness of breath or wheez ing #8.5 grams albuterol sulfate 90 mcg/actuation 1 - 2 puff inhalati on Q4H PRN PRN 04/30/25 Unknown Rx aerosol inhaler (Ventolin HFA) Wheezing ##1 prednisone 20 mg tablet 20 mg PO DAILY 7 days #7 tab s 04/30/25 Unknown Rx Allergy/AdvReac Type Severity Reaction Status Date / Time Penicillins Allergy Intermediate Hives Verified 04/30/25 17:47 carbamazepine (From Tegretol) AdvReac Intermediate Nausea Verified 04/30/25 17:47 benztropine AdvReac Unknown Verified 04/30/25 17:47 diazepam (From Valium) AdvReac Other Verified 04/30/25 17:47 Sulfa (Sulfonamide AdvReac Nausea Verified 04/30/25 17:47 Antibiotics) thioridazine AdvReac Nausea Verified 04/30/25 17:47 thioridazine HCl (From AdvReac Other Verified 04/30/25 17:47 Mellaril) Family History Grandmother Cancer stomach Father Cancer lung Sister Breast cancer Surgical History Hx of surgical procedure History of carpal tunnel surgery History of elbow surgery H/O shoulder surgery H/O hand surgery H/O dilation and curettage Hx of cholecystectomy History of tonsillectomy Social History (Updated 04/30/25 @ 18:[address] Ortiz Pinto MD) housing: homeless Smoking Status: Heavy Smoker (>10/day) alcohol intake: never substance use type: does not use caffeine: Yes what type of physical activity do you participate in: walking seatbelt use: always do you feel safe at home: Yes ROS ROS ED Constitutional Constitutional ED: Denies chills or fever(s) Eyes Eyes: Denies change in vision or diplopia ENT ENT ED: Denies rhinorrhea or sore throat Cardiovascular Cardiovascular: Reports as per HPI and chest pain; Denies leg edema or palpitations Respiratory/Chest Respiratory/Chest: Reports cough, dyspnea, dyspnea on exertion and wheezing Gastrointestinal Gastrointestinal: Reports nausea; Denies abdominal pain, diarrhea or vomiting Genitourinary Genitourinary ED: Denies dysuria or hematuria Musculoskeletal Musculoskeletal: Denies back pain or neck pain Integumentary Denies abscess or rash Neurologic Neurologic: Denies headache(s), paresthesias or weakness Psychiatric Psychiatric: Denies anxiety or suicidal thoughts EXAM Physical Exam Const Vital Signs: 04/30/25 17:48 04/30/25 17:49 04/30/25 17:51 Temperature 98.3 F Temperature Source Oral Pulse Rate 83 Respiratory Rate 18 Respiratory Effort Short of Breath Respiratory Pattern Blood Pressure 109/65 Blood Pressure Mean 79 Pulse Ox 91 95 Oxygen Delivery Method Room Air Nasal Cannula Oxygen Flow Rate (L/min) 2 04/30/25 18:06 04/30/25 18:07 04/30/25 18:16 Temperature Temperature Source Pulse Rate 81 84 Respiratory Rate 16 18 Respiratory Effort Respiratory Pattern Normal Blood Pressure 109/64 Blood Pressure Mean 79 Pulse Ox 96 Oxygen Delivery Method Nasal Cannula Nasal Cannula Oxygen Flow Rate (L/min) 2 04/30/25 18:44 04/30/25 19:14 04/30/25 20:00 Temperature 97.7 F L Temperature Source Oral Pulse Rate 89 84 71 Respiratory Rate 22 H 20 H 22 H Respiratory Effort Respiratory Pattern Blood Pressure 121/75 H 95/59 L 112/57 L Blood Pressure Mean 90 71 75 Pulse Ox 94 94 95 Oxygen Delivery Method Nasal Cannula Nasal Cannula Nasal Cannula Oxygen Flow Rate (L/min) 2 2 04/30/25 21:00 Temperature Temperature Source Pulse Rate 66 Respiratory Rate 12 Respiratory Effort Respiratory Pattern Blood Pressure 106/47 L Blood Pressure Mean 66 Pulse Ox 97 Oxygen Delivery Method Nasal Cannula Oxygen Flow Rate (L/min) Positive well nourished, well developed and obese General Appearance ED: well developed and NAD Nutritional Appearance: obese HEENT Reports moist mucous membranes normocephalic and atraumatic Eyes PERRL and EOMs intact bilaterally Neck full ROM, no lymphadenopathy, supple and no JVD Chest Wall Chest Narrative: Mild left lower rib cage/chest wall tenderness without crepitance or subcutaneous emphysema Resp normal respiratory effort Auscultation: wheezes expiratory wheezes and throughout (Without rales or rhonchi) Cardio regular rate, regular rhythm and no murmurs GI non-tender and non-distended Auscultation: normoactive bowel sounds Palpation: soft Back/Spine no CVA tenderness General Back: other FROM Extremity normal to inspection General Extremety ED: Negative for edema, pulses abnormal or tenderness General Extremity: Negative for edema or pulses abnormal Neuro oriented x3, CN's II-XII intact bilaterally and no sensory deficits noted Sensorium / Orientation: awake and alert Motor Exam: strength 5/5 throughout Psych Mood & Affect: anxious Skin no rashes or lesions noted and no wounds Heart Score History: Slightly/Non-Suspicious ECG: Normal Age: >45 - <65 years Risk Factors: 1 or 2 Risk Factors Troponin: </= Normal Limit Score: 2 MDM MDM MDM Narrative Medical decision making narrative: Assessment: The patient is a 65-year-old female with PMH of COPD, chronic renal insufficiency, and significant smoking history presenting for acute left lower anterior chest pain and shortness of breath. Prior studies reviewed today include a normal EF 65% echocardiogram from 09/12/2024 and a 12/30/2020 coronaryangiogram without obstructive CAD, which places her at low risk for acute coronary syndrome. Initial troponin 18 with 2-hour delta 16 and a normal EKG further reduce concern for ACS, correlating with his low HEART score of 2. Clinical picture is most consistent with viral URI?triggered COPD exacerbation and resultant musculoskeletal chest wall strain from forceful coughing; pneumonia is unlikely as chest X-ray shows nonspecific basilar findings and on exam she has wheezing but otherwise clear lungs. Plan: - Administered nebulizer bronchodilator treatment in ED with symptomatic improvement - Gave empiric IV/PO steroids for COPD exacerbation - Administered ondansetron for doxycycline-related nausea - Continue current doxycycline course started yesterday - Prescribed oral prednisone on discharge - Reassured patient; discussed low cardiac risk and home management of COPD flare Diagnostics: - EKG interpreted: normal sinus rhythm, no ischemic changes. Independently interpreted by meOrtiz. - Labs: Troponin I 18 ng/L; 2-hour delta 16 ng/L. - Chest X-ray: clear lungs, no infiltrate or consolidation. - Prior echocardiogram 09/12/2024 reviewed: EF 65%, no wall-motion abnormalities, trivial MR. - Prior coronary angiogram 12/30/2020 reviewed: no obstructive coronary disease. Reevaluations: - Patient reports improved breathing and reduced chest pain after nebulizer and steroids; remains hemodynamically stable. History & Record Review Additional record(s) reviewed:: Prior outpatient record Lab Data Attestation: I reviewed the patient's lab results. Labs: Laboratory Results - last 24 hr 04/30/25 04/30/25 18:00 20:00 WBC 8.7 RBC 5.19 Hgb 15.9 H Hct 49.5 H MCV 95.4 MCH 30.6 MCHC 32.1 RDW Std Deviation 50.4 H RDW Coeff of Robert 14.4 Plt Count 275 MPV 10.3 Immature Gran % (Auto) 0.100 Neut % (Auto) 55.4 Lymph % (Auto) 31.2 Price % (Auto) 8.0 Eos % (Auto) 5.1 H Baso % (Auto) 0.2 Absolute Neuts (auto) 4.8 Absolute Lymphs (auto) 2.70 Nucleated RBC % 0 Sodium 140 Potassium 3.6 Chloride 100 Carbon Dioxide 26.2 Anion Gap 14 BUN 18 Creatinine 1.69 H Estim Creat Clear Calc 39.90 L Est GFR (MDRD) Non-Af 34 L BUN/Creatinine Ratio 10.6 Glucose 103 H Calcium 9.6 Troponin T High Sens 18 H D Troponin T Hi Sens 2 Hr 16 H Radiography Diagnostic Testing: Clinical Impression(s) from Imaging Studies Chest X-Ray 04/30/25 18:20 IMPRESSION: Small right pleural effusion/atelectasis. Underlying consolidation not excluded. Reading Location: [id number] Rhythm Strip Rhythm Strip: Sinus Rhythm Rate: 83 Ectopy: None EKG Initial EKG: Attestation: I personally reviewed and interpreted this EKG as follows: Interpretation: Sinus Rhythm and No Acute Injury Pattern Comments: Nml axis & intervals; nml EKG Discharge Plan Triage Chief Complaint: Chest Pain ED Provider: Ortiz iPnto Dx/Rx/DC Orders Clinical Impression: Acute exacerbation of chronic obstructive pulmonary disease (COPD), Viral upperrespiratory infection, Strain of chest wall, CKD (chronic kidney disease) stage 3, GFR 30-59 ml/min, Anticoagulated on Eliquis Instructions: ED COPD Flare Prescriptions: New prednisone 20 mg tablet 20 mg PO DAILY 7 Days Qty: 7 0RF albuterol sulfate [Ventolin HFA] 90 mcg/actuation HFA aerosol inhaler 1 - 2 puff inhalation Q4H PRN PRN (Reason: Wheezing) Qty: 1 0RF No Action ipratropium-albuterol 0.5 mg-3 mg(2.5 mg base)/3 mL solution for nebulization 3 ml continuous nebulization ONCE Qty: 3 0RF nitroglycerin 0.4 mg tablet, sublingual 0.4 mg sublingual DAILY citalopram 10 mg tablet 10 mg PO DAILY ipratropium-albuterol 0.5 mg-3 mg(2.5 mg base)/3 mL solution for nebulization 3 ml inhalation Q20M PRN (Reason: shortness of breath) 30 Days Qty: 90 0RF Rx Instructions: for 3 doses methenamine hippurate 1 gram tablet 1 g PO BID Qty: 180 3RF Gemtesa 75 mg tablet 75 mg PO QDAY Qty: 90 3RF spironolactone 25 mg tablet 25 mg PO DAILY mupirocin 2 % ointment 1 applic topical TID nitrofurantoin monohyd/m-cryst 100 mg capsule 1 cap PO BID quetiapine 200 mg tablet extended release 24 hr PO Gemtesa 75 mg tablet 75 mg PO DAILY Eliquis 5 mg Tablet 5 mg PO Q12 Qty: 60 0RF quetiapine 100 mg Tablet 200 mg PO BID Qty: 120 0RF trazodone 100 mg Tablet 200 mg PO QHS Qty: 60 0RF lovastatin 40 mg tablet 20 mg PO QHS omeprazole 40 mg capsule,delayed release(DR/EC) 40 mg PO DAILY lorazepam 0.5 mg tablet 0.5 mg PO Q12H PRN (Reason: anxiety) aspirin 81 mg capsule 81 mg PO DAILY furosemide 20 mg tablet 20 mg PO BID levofloxacin 500 mg tablet 500 mg PO DAILY 1 Days Qty: 1 0RF albuterol sulfate 90 mcg/actuation HFA aerosol inhaler 2 puff inhalation Q6H PRN (Reason: shortness of breath or wheezing) Qty: 8.5 0RF Primary Care Provider: Homer Bradford Referrals: Homer Bradford MD [Primary Care Provider, Family Practice] - 1 Week if not improving Activity Restrictions/Additional Instructions: - Continue taking the full course of doxycycline exactly as prescribed, if able. - Start the prescribed prednisone tomorrow 05/01 to help reduce airway inflammation. - Use your nebulizer at home whenever you feel short of breath. Alternatively we prescribed you a rescue inhaler that you could also use if you are having trouble with access to your nebulizer. Print Language: Persian Disposition Disposition: Home, Self Care What to do if you have Problems For any increased pain, shortness of breath, bleeding, nausea or vomiting, chestpain, or any unexpected problems, contact your Primary Care Provider. Call [facility] ([phone]) or report to the closest Emergency Room. Call 911 if necessary. 04/30/252118 <Electronically signed by Ortiz Pinto MD> Cosigner Signature (if applicable): CC: Dr. Homer Bradford MD ~ Signed [facility] Work Phone: [phone] 376-689609-18-2025 NoteHNO ID: [id number] Author: ORTIZ MASSEY MD Service: ? Author Type: Physician Type: Progress Notes Filed: 04/05/2025 11:29 Note Text: Ortiz Massey MD Department of Orthopaedics Orth[facility] [address] [facility] [address] Dept: [phone] Dept April 04, 2025 CHIEF COMPLAINT: New and Pain of the Left Shoulder (Referred by Dr Bradford) Patient here for left shoulder pain. Patient denies any pain. Patient states she had a cortisone injection 2 years ago and did not help. Was told she would need surgery for that surgery. States it made it hurt worse. States her pain is getting worse and is unable to use her left arm. Patient has using a pain patch and aspercreme for the pain. Patient states the heating pad works as well. LI Rodriguez is a 65-year-old female with a history of right rotator cuff repair, presenting with left shoulder pain and limited range of motion. Pernell reports chronic left shoulder pain and significant restriction in range of motion, which has progressively worsened over the past year. She is unable to reach overhead or behind her back and experiences pain radiating from the shoulder to the back of the neck. She has been using pain patches prescribed by Dr. Reynolds, applying them 24 hours on and 24 hours off, with minimal relief. She previously received a cortisone injection from Dr. Godwin last year, which exacerbated her pain and caused emesis. She also attempted physical therapy with [facility] last year but discontinued due to increased soreness, lack of transportation, and eviction. Pernell was reportedly told she had a torn rotator cuff approximately 6 months ago, but no imaging was performed to confirm this diagnosis. She has a history of right rotator cuff repair in 2003 and bilateral carpal tunnel release. She also has a history of diabetes, which precludes the use of prednisone, and is unable to take anti-inflammatories due to renal issues. She is a current smoker, which may impact healing and surgical outcomes. ASSESSMENT: M75.02 Adhesive capsulitis of left shoulder (primary encounter diagnosis) M67.912 Rotator cuff disorder, left F17.210 Nicotine dependence, cigarettes, uncomplicated E11.9 Type 2 diabetes mellitus without complication, without long-term current use of insulin ([facility]) 1. Adhesive capsulitis of left shoulder (M75.02) 2. Rotator cuff disorder, left (M67.912) Severe adhesive capsulitis of the left shoulder with significant restriction in range of motion and pain, persisting for over a year. Prior corticosteroid injection provided no relief and worsened symptoms. Differential includes possible rotator cuff tear, but diagnosis cannot be confirmed without MRI or ultrasound due to limited mobility. - Ordered MRI of the left shoulder to evaluate for rotator cuff tear and further assess adhesive capsulitis; explained that [employer] insurance may require additional physical therapy sessions before approving MRI. - Advised patient to attempt a few more physical therapy sessions to meet insurance requirements for MRI approval. - Discussed that surgery is not currently an option due to medical comorbidities and smoking status. - Educated patient on the importance of physical therapy for improving shoulder mobility and the potential for improvement with therapy. - Discussed possible in-office procedure for frozen shoulder (hydrodilatation) if MRI is approved and confirms diagnosis. - Advised patient to obtain a new X-ray of the left shoulder when available to assess for any significant changes since last year. 3. Nicotine dependence, cigarettes, uncomplicated (F17.210) Ongoing nicotine dependence; current smoking status negatively impacts healing and surgical candidacy. - Advised patient on the detrimental effects of smoking on healing and surgical outcomes. 4. Type 2 diabetes mellitus without complication, without long-term current use of insulin (HCC) (E11.9) Type 2 diabetes mellitus; corticosteroids contraindicated due to diabetes. - Discussed contraindication of corticosteroids due to diabetes. Will continue to monitor patient for Adhesive capsulitis of left shoulder (primary encounter diagnosis) Rotator cuff disorder, left Nicotine dependence, cigarettes, uncomplicated Type 2 diabetes mellitus without complication, without long-term current use of insulin (hcc), patient to schedule visit as per follow up discussed. OBJECTIVE: Ms. Pernell Rodriguez is a pleasant 65 year old in no apparent distress. Gen:LMP 02/22/2006 nl development, obese, no deformities ENT: Normocephalic, normal hearing, moist mucosa CV: Pulses:Radial= 2+ and symmetric, capillary refill < 2 secs, no peripheral edema/varicosities Skin: no rash, bruising or lesions. Good turgor. Psych: cooperative and appropriate, alert and oriented x 3, good mood and affect. Musculoskeletal: - Musculoskeletal: - Lef (more content not included)...[facility]09-11-2025 Telephone encounter Note* Telephone Encounter - Homer Bradford MD - 03/28/2025 2:57 PM EDT The following approved medication requests have been transmitted electronically. Requested Prescriptions Signed Prescriptions Disp Refills lidocaine (LIDODERM) 5 % 10 patch 0 Sig: Apply 1 patch as directed once daily. REMOVE AFTER 12 HOURS. Authorizing Provider: HOMER BRADFORD MD [facility]09-11-2025 Miscellaneous Notes* Telephone Encounter - Homer Bradford MD - 03/28/2025 2:57 PM EDT The following approved medication requests have been transmitted electronically. Requested Prescriptions Signed Prescriptions Disp Refills lidocaine (LIDODERM) 5 % 10 patch 0 Sig: Apply 1 patch as directed once daily. REMOVE AFTER 12 HOURS. Authorizing Provider: OHMER BRADFORD MD * Telephone Encounter - Erwin Harvey RN - 03/28/2025 2:15 PM EDT Patient phoned and informed pt doctor would like to have the name and phone number phone number of a shipping lead person at the [facility] so that we may contact them. Pt looked forit and states she can't find it, but will call back with that information and give to nurse. Pt asking if pcp can send her an Rx for lidocaine patch to [facility]. Reports she needs an Rx in order for insurance to cover it. States her shoulder hurts and she is not scheduled with ortho until 04/04/25. * Telephone Encounter - Jose Jarrell MA - 03/28/2025 9:42 AM EDT Called and left message on patients voicemail to return call to the office and ask to speak with a FM triage nurse. When pt returns call please obtain information below. Once information obtained, can we please calland notify them we need the information PCP is asking for, thanks. Jose Jarrell MA * Telephone Encounter - Homer Bradford MD - 03/28/2025 8:18 AM EDT See if Pernell can give us the name and number of a shipping lead person at the [facility]. Then let them know know they need to fax a letter with what they want and a signed release of medical information by Pernell or else it's a HIPA violation. * Telephone Encounter - Erwin Harvey RN - 03/27/2025 2:19 PM EDT Pt reports she picked up the letter in Medical Records and now the [facility] wants a letter from pcp stating all of patient's diagnoses and the names of all the doctors who treat her. Pt would like pcp office to fax this letter to [facility]. Pt will call back with fax number. [facility] Telephone encounter Note * Telephone Encounter - Erwin Harvey RN - 03/28/2025 2:15 PM EDT Patient phoned and informed pt doctor would like to have the name and phone number phone number of a shipping lead person at the [facility] so that we may contact them. Pt looked forit and states she can't find it, but will call back with that information and give to nurse. Pt asking if pcp can send her an Rx for lidocaine patch to [facility]. Reports she needs an Rx in order for insurance to cover it. States her shoulder hurts and she is not scheduled with ortho until 04/04/25. [facility]09-11-2025 Telephone encounter Note* Telephone Encounter - Jose Jarrell MA - 03/28/2025 9:42 AM EDT Called and left message on patients voicemail to return call to the office and ask to speak with a FM triage nurse. When pt returns call please obtain information below. Once information obtained, can we please calland notify them we need the information PCP is asking for, thanks. Jose Jarrell MA [facility]09-11-2025 Telephone encounter Note* Telephone Encounter - Homer Bradford MD - 03/28/2025 8:18 AM EDT See if Pernell can give us the name and number of a shipping lead person at the [facility]. Then let them know know they need to fax a letter with what they want and a signed release of medical information by Pernell or else it's a HIPA violation. [facility]09-10-2025 Telephone encounter Note* Telephone Encounter - Erwin Harvey RN - 03/27/2025 2:19 PM EDT Pt reports she picked up the letter in Medical Records and now the [facility] wants a letter from pcp stating all of patient's diagnoses and the names of all the doctors who treat her. Pt would like pcp office to fax this letter to [facility]. Pt will call back with fax number. [facility]09-09-2025 Telephone encounter Note* Telephone Encounter - Umm York RN - 03/26/2025 1:37 PM EDT The patient has been identified by name and date of : Yes Caregiver verified no other encounters exist for this prescription request: Yes Caregiver confirmed with patient/requestor that no other refills are due, in the near future, with this provider at this time: Yes The last office visit in the department: 02/21/2025 Does the patient have a future office visit with this provider/department: Yes 05/24/2025 Requested Prescriptions Pending Prescriptions Disp Refills spironolactone (ALDACTONE) 25 mg tablet 30 tablet 3 Sig: Take 1 tablet by mouth once daily. To get her to her appt with cardio furosemide (LASIX) 20 mg tablet 60 tablet 3 Sig: Take 1 tablet by mouth two times a day. To get her to her appt with cardio Umm York RN March 26, 2025 1:38 PM [facility]09-09-2025 Miscellaneous Notes* Telephone Encounter - Umm York RN - 03/26/2025 1:37 PM EDT The patient has been identified by name and date of : Yes Caregiver verified no other encounters exist for this prescription request: Yes Caregiver confirmed with patient/requestor that no other refills are due, in the near future, with this provider at this time: Yes The last office visit in the department: 02/21/2025 Does the patient have a future office visit with this provider/department: Yes 05/24/2025 Requested Prescriptions Pending Prescriptions Disp Refills spironolactone (ALDACTONE) 25 mg tablet 30 tablet 3 Sig: Take 1 tablet by mouth once daily. To get her to her appt with cardio furosemide (LASIX) 20 mg tablet 60 tablet 3 Sig: Take 1 tablet by mouth two times a day. To get her to her appt with cardio Umm York RN March 26, 2025 1:38 PM documented [facility] Telephone encounter Note * Telephone Encounter - Jose Jarrell MA - 03/25/2025 4:18 PM EDT Call to pt and notified her letter is ready for pick pulling machine tender at [facility]. Pt will be her tomorrow to pick pulling machine tender. Jose Jarrell MA [facility]09-08-2025 Miscellaneous Notes* Telephone Encounter - Jose Jarrell MA - 03/25/2025 4:18 PM EDT Call to pt and notified her letter is ready for pick pulling machine tender at [facility]. Pt will be her tomorrow to pick pulling machine tender. Jose Jarrell MA * Telephone Encounter - Homer Bradford MD - 03/25/2025 4:10 PM EDT Let patient know letter ready for pick pulling machine tender. * Telephone Encounter - Mary Ann Rodriguez LPN - 03/25/2025 10:14 AM EDT Patient calling back said assisted living is called [facility]. * Telephone Encounter - Mary Ann Rodriguez LPN - 03/25/2025 9:25 AM EDT Patient calling asking for a letter from PCP saying he agrees would be good idea for [facility] Patient [place] [address] [facility] area, did not know the name. Please call patient when ready for pick pulling machine tender. Please advise [facility] Telephone encounter Note * Telephone Encounter - Homer Bradford MD - 03/25/2025 4:10 PM EDT Let patient know letter ready for pick pulling machine tender. [facility] Telephone encounter Note* Telephone Encounter - Mary Ann Rodriguez LPN - 03/25/2025 10:14 AM EDT Patient calling back said assisted living is called [facility]. [facility]09-08-[facility] Telephone encounter Note* Telephone Encounter - Mary Ann Rodriguez LPN - 03/25/2025 9:25 AM EDT Patient calling asking for a letter from PCP saying he agrees would be good idea for her [facility]. Patient said located [address] [facility] area, did not know the name. Please call patient when ready for pick pulling machine tender. Please advise [facility]09-04-[facility]25 NoteHNO ID: [id number] Author: ALIZE WILCOX OD Service: ? Author Type: Patient Safety Officer Type: Progress Notes Filed: 03/21/2025 14:56 Note Text: 1. Type 2 diabetes mellitus without retinopathy (HCC) (Primary) HbA1c reviewed Educated patient to continue care and current treatment regimen with primary care doctor and/or installation and repair technician to maintain optimum levels as they are important to avoid ocular complications Encouraged patient to call the office immediately with any changes to vision or visual concerns 2. Nuclear sclerosis of both eyes Mild- monitor 3. Regular astigmatism of both eyes 4. Presbyopia Finalized spec rx 5. Meibomian gland dysfunction (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 eyes Recommended warm compresses and baby shampoo or lid wipes daily Follow-up in 1 year for RICHARD I have confirmed and edited as necessary the relevant HPI, ophthalmic history, ROS, and the neuro exam findings as obtained by others. I have seen and examined Pernell Rodriguez. I have discussed the case and the management of this patient's care with the Resident/Fellow, if applicable. I also have reviewed and agree with the assessment and plan as stated above and agree with all of its relevant components. Alize Wilcox OD March 21, 2025 2:54 [facility]09-04-2025 History of Present illness Narrative* Alize Wilcox, OD - 03/21/2025 2:54 PM EDT 1. Type 2 diabetes mellitus without retinopathy (HCC) (Primary) HbA1c reviewed Educated patient to continue care and current treatment regimen with primary care doctor and/or installation and repair technician to maintain optimum levels as they are important to avoid ocular complications Encouraged patient to call the office immediately with any changes to vision or visual concerns 2. Nuclear sclerosis of both eyes Mild- monitor 3. Regular astigmatism of both eyes 4. Presbyopia Finalized spec rx 5. Meibomian gland dysfunction (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 eyes Recommended warm compresses and baby shampoo or lid wipes daily Follow-up in 1 year for RICHARD I have confirmed and edited as necessary the relevant HPI, ophthalmic history, ROS, and the neuro exam findings as obtained by others. I have seen and examined Pernell Rodriguez. I have discussed the case and the management of this patient's care with the Resident/Fellow, if applicable. I also have reviewed and agree with the assessment and plan as stated above and agree withall of its relevant components. Alize Wilcox, [place] March 21, 2025 2:54 PM documented in this encounterMer[facility] Telephone encounter Note * Telephone Encounter - Zoila Sage MSW - 03/19/2025 9:56 AM EDT Aaron received message from patient asking about name of worker from [employer] that was helpingpatient with housing assistance. Aaron called patient back and left message with Elsie Geren name and noted that she is the Senior Imaging Center Manager for [employer]. Aaron also left number for [employer] Chaitanya ph. [phone]. [facility]09-02-[facility] Miscellaneous Notes* Telephone Encounter - Zoila Sage MSW - 03/19/2025 9:56 AM EDT Aaron received message from patient asking about name of worker from [employer] that was helpingpatient with housing assistance. Sw called patient back and left message with Elsie Green name and noted that she is the Senior Imaging Center Manager for [employer]. Sw also left number for [employer] Chaitanya ph. [phone]. documented in this encounterMer[facility]08-27-2025 Telephone encounter Note * Telephone Encounter - Zoila Sage MSW - 03/13/2025 10:01 AM EDT Sw left patient message to return Sw call to check in with patient regarding housing assistance needs. [facility] Miscellaneous Notes* Telephone Encounter - Zoila Sage MSW - 03/13/2025 10:01 AM EDT Sw left patient message to return Sw call to check in with patient regarding housing assistance needs. * Telephone Encounter - Zoila Sage MSW - 03/06/2025 10:31 AM EDT Patient spoke with Sw and told her that she has not yet called [employer]. Patient states that she will call them now and see what type of help they can provide through Medicaid Waiver for housing support. * Telephone Encounter - Zoila Sage MSW - 03/05/2025 3:41 PM EDT Patient and Sw spoke regarding [employer] and patient is going to give them a call to see what type of housing resource help they may offer. Sw will check back in with patient tomorrow and see what [employer] had to say to patient. documented in this encounterMer[facility]08-20-2025 Telephone encounter Note * Telephone Encounter - Zoila Sage MSW - 03/06/2025 10:31 AM EDT Patient spoke with Aaron and told her that she has not yet called [employer]. Patient states that she will call them now and see what type of help they can provide through Medicaid Waiver for housing support. [facility]08-[facility] Telephone encounter Note* Telephone Encounter - Zoila Sage MSW - 03/05/2025 3:41 PM EDT Patient and Sw spoke regarding [employer] and patient is going to give them a call to see what type of housing resource help they may offer. Sw will check back in with patient tomorrow and see what [employer] had to say to patient. [facility]08-19-[facility] Miscellaneous Notes* Telephone Encounter - Zoila Sage MSW - 03/05/2025 12:00 PM EDT Aaron spoke with Jimy Zimmerman, Senior Outreach. Elsie reports that she will call patient this afternoon to discuss housing needs. * Telephone Encounter - Zoila Sage MSW - 03/04/2025 12:41 PM EDT Patient called Aaron and said that the lady she is currently living with wants her to move out this weekend. Sw asked if patient and Jimy Zimmerman, had been working on housing with her and patient said that she tried to get to [employer] [employer], but couldn't find her walker. Patient asked if Sw for have Elsie give her a call again. Sw called and left Jimy Zimmerman a message asking that she call Sw back to discuss. documented in this encounterMer[facility]08-19-2025 Telephone encounter Note * Telephone Encounter - Zoila Sage MSW - 03/05/2025 12:00 PM EDT Sw spoke with Jimy Zimmerman, Senior Outreach. Elsie reports that she will call patient this afternoon to discuss housing needs. [facility]-18-[facility] Telephone encounter Note* Telephone Encounter - Zoila Sage MSW - 03/04/2025 12:41 PM EDT Patient called Sw and said that the lady she is currently living with wants her to move out this weekend. Sw asked if patient and Jimy Zimmerman, had been working on housing with her and patient said that she tried to get to [employer], but couldn't find her walker. Patient asked if Sw for have Elsie give her a call again. Sw called and left Jimy Zimmerman a message asking that she call Sw back to discuss. [facility] Telephone encounter Note* Telephone Encounter - Homer Bradford MD - 03/02/2025 1:03 PM EDT The following approved medication requests have been transmitted electronically. Requested Prescriptions Signed Prescriptions Disp Refills furosemide (LASIX) 20 mg tablet 60 tablet 0 Sig: Take 1 tablet by mouth two times a day. To get her to her appt with cardio Authorizing Provider: HOMER BRADFORD spironolactone (ALDACTONE) 25 mg tablet 30 tablet 0 Sig: Take 1 tablet by mouth once daily. To get her to her appt with cardio Authorizing Provider: HOMER BRADFORD MD [facility]08-16-[facility] Miscellaneous Notes* Telephone Encounter - Homer Bradford MD - 03/02/2025 1:03 PM EDT The following approved medication requests have been transmitted electronically. Requested Prescriptions Signed Prescriptions Disp Refills furosemide (LASIX) 20 mg tablet 60 tablet 0 Sig: Take 1 tablet by mouth two times a day. To get her to her appt with cardio Authorizing Provider: HOMER BRADFORD spironolactone (ALDACTONE) 25 mg tablet 30 tablet 0 Sig: Take 1 tablet by mouth once daily. To get her to her appt with cardio Authorizing Provider: HOMER BRADFORD MD * Telephone Encounter - Shanti Monreal RN - 03/01/2025 3:30 PM EDT The patient has been identified by name and date of : Yes Caregiver verified no other encounters exist for this prescription request: Yes Caregiver confirmed with patient/requestor that no other refills are due, in the near future, with this provider at this time: Yes The last office visit in the department: 02/21/2025 Does the patient have a future office visit with this provider/department: 05/24/2025 Requested Prescriptions Pending Prescriptions Disp Refills furosemide (LASIX) 20 mg tablet 60 tablet Sig: Take 1 tablet by mouth two times a day. To get her to her appt with cardio spironolactone (ALDACTONE) 25 mg tablet 30 tablet Sig: Take 1 tablet by mouth once daily. To get her to her appt with cardio Shanti Monreal RN March 01, 2025 3:36 PM documented in this encounterMer[facility]08-15-2025 Telephone encounter Note * Telephone Encounter - Shanti Monreal RN - 03/01/2025 3:30 PM EDT The patient has been identified by name and date of : Yes Caregiver verified no other encounters exist for this prescription request: Yes Caregiver confirmed with patient/requestor that no other refills are due, in the near future, with this provider at this time: Yes The last office visit in the department: 02/21/2025 Does the patient have a future office visit with this provider/department: 05/24/2025 Requested Prescriptions Pending Prescriptions Disp Refills furosemide (LASIX) 20 mg tablet 60 tablet Sig: Take 1 tablet by mouth two times a day. To get her to her appt with cardio spironolactone (ALDACTONE) 25 mg tablet 30 tablet Sig: Take 1 tablet by mouth once daily. To get her to her appt with cardio Shanti Monreal RN March 01, 2025 3:36 PM [facility]08-07-[facility]25 NoteHNO ID: [id number] Author: HOMER BRADFORD MD Service: ? Author Type: Physician Type: Progress Notes Filed: 02/21/2025 20:17 Note Text: Chief Complaint Patient presents with: Follow Up: Mentions an anal gland odor LESION, SKIN: Has sore on buttocks. Mentioned at last OV 01/25/25 Pain (Shoulder Pain): Left shoulder pain HPI Pernell Rodriguez is a 65 year old female who presents here today for a 2 month follow up. Patient with very extensive complex medical Hx as reviewed on problem list. Her mental health issues and being homeless do affect her ability for care and being compliant. Pt following up from previous office. Since last visit pt has been seen twice for a Hospital f/u, urinary frequency, and pressure injury sacral area. Pernell Rodriguez is a 65-year-old female with a history of homelessness, presenting for follow-up on multiple chronic conditions and acute concerns. Pernell reports ongoing issues with a sore on her buttocks, which has increased in size. She is under the care of a cycle specialist, who removed the scab, but she missed a recent appointment due to transportation issues. She also reports a history of a sore on the front of her leg, which was deemed perfect by her cycle specialist. She denies recent fevers or chills. She has a history of a injured rotator cuff in her shoulder. She received a corticosteroid injection and attended one physical therapy session but was unable to continue due to transportation issues. She requests a sling to support her arm. She reports episodes of foot swelling and redness. She denies any lumps or swelling in her neck. She has a history of low blood pressure, managed by Dr. Calderón, a neurologist, who prescribed Florinef. She missed a recent appointment with Dr. Calderón and needs to reschedule. She denies wheezing, dyspnea, hemoptysis, chest pain, or palpitations. She reports three episodes of diarrhea and emesis in the past month, with the last episode occurring last week. She has since modified her diet to include yogurt and dora barrett, which she believes has helped. She denies dysuria or hematuria but has a history of frequent UTIs and needs to contact her bladder specialist, Dr. Melgoza, whose office was closed for renovations. She reports occasional symptoms of hypoglycemia, including shakiness, jitteriness, nausea, and diaphoresis. She denies frequent cephalalgia, syncope, or seizures. She notes a recent issue with her eye, describing a sensation of something in the corner, which she managed with a cold washcloth. She is currently smoking approximately once daily and has a history of quitting for about a week but resumed due to stress. She has a nebulizer at home and has an upcoming appointment with her instrument repairer, Dr. Christopher, on the . She is also trying to get more exercise and uses a roller walker for mobility. 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 She is currently staying with a friend and sleeps in a chair due to limited space. She is looking for a two-bedroom apartment on one floor. She denies any current contacts for emergencies or support. Past medical history, appointments, medications, allergies reviewed. Previous Medical History PAST MEDICAL HISTORY Diagnosis Date ASHD (arteriosclerotic heart disease) 10/25/[address] Goins Bilateral leg edema 04/25/2015 Bipolar affective disorder (HCC) 04/25/[address] Colindres Chest pain 02/14/[address] Jacob in [facility]. Had a normal cardiac CTA in 2009 with no calcium. Chronic back pain greater than 3 months duration 04/02/2015 Chronic insomnia 03/12/2020 Ilya Calderón ([facility]) on melatonin. Chronic obstructive pulmonary disease (HCC) 04/25/2015 Chronic pain 01/14/2014 Constipation 02/12/2014 [place] or callus 11/16/2015 Current use of proton pump inhibitor 10/11/2017 CVA (cerebral infarction) 01/14/2014 Diabetic eye exam ([facility]) 01/14/[address] Sanchez last done 03/02/2019 Diabetic foot ([facility]) 01/14/[address] Martins Extrapyramidal reaction 01/14/2014 Gastroesophageal reflux disease without esophagitis 04/25/2015 History of CVA (cerebrovascular accident) 04/25/[address] Ilya Calderón ([facility]) Hives 01/14/2014 Hypotension 01/14/2014 Sees Ilya Calderón ([facility]) and has her on fludrocortisone Incontinence of feces 07/08/2017 Irritable bowel syndrome with both constipation and diarrhea 04/28/2017 Low back pain 01/14/2014 Low vitamin B12 level 07/16/2022 Lumbosacral neuritis 04/16/2014 Major depressive disorder, recurrent episode, moderate ([facility]) 04/25/2015 On disability Migraine without aura and without status migrainosus, not intractable 04/28/[address] Calderón Mixed hyperlipidemia 01/14/2014 Mixed incontinence urge and stress (male)(female) 07/25/2018 Morbid obesity due to excess calories ([facility]) 10/27/2016 Muscle weakness (generalize (more content not included)...[facility]07-17-2025 History and physical note Author Vijay Love [facility] Note Date/Time January 31, 2025 12:1 3pm [facility] [address] [place] [address] H&P Exam - Wound Care 01/31/25 1152 MR#: [id number] Acct: [id number] Name: PHILLIPPERNELL JO Rep #:[id number] 2 : 1960 65 From: Vijay Arthur PCP: Dr. Homer Bradford MD Status:REG RCR Location: History of Present Illness Date of Service: 01/29/25 Chief Complaint: Right buttock ulceration History of Wound: This is a 65-year-old female with multiple pre-existing medical conditions, who presented with a small ulceration on her right buttock. It has reportedly been present for approximately 3 weeks. The patient has a history of type 2 diabetes mellitus, chronic kidney disease, morbid obesity, atherosclerotic heart disease, cerebrovascular accident, COPD, hyperlipidemia, and bipolar disorder. She is also known to be a smoker, and smokes 2 packs of cigarettes per day for 50 years. [facility] Medical History Decubitus ulcer of buttock, stage 1 Encounter for smoking cessation counseling History of COPD Urinary tract infection History of echocardiogram Wears glasses Anxiety Depression Post-menopausal History of renal disease High cholesterol Back pain TIA (transient ischemic attack) Gastric reflux Smoker Shortness of breath on exertion History of pain when walking History of edema Cardiology follow-up encounter History of heart attack Chest pain History of left heart catheterization (LHC) (~12/30/20) CKD (chronic kidney disease) stage 3, GFR 30-59 ml/min Lung nodule COPD (chronic obstructive pulmonary disease) Paroxysmal atrial fibrillation Elevated liver enzymes Acute respiratory failure with hypoxia Stroke IBS (irritable bowel syndrome) Hyperlipidemia Heart disease Migraines Frequent headaches Gastrointestinal problem Diabetes History of back problems Asthma Arthritis Home Medications ?Medication ?Instructions ?Recorded ?Last Taken ?Type apixaban 5 mg tablet (Eliquis) 5 mg PO Q12 #60 tabs Unknown Rx citalopram 10 mg tablet 10 mg PO DAILY #30 tabs 10/17 10/09 Unknown Rx quetiapine 100 mg tablet 200 mg (2 x 100 mg) PO BID # 120 11/07/24 Unknown Rx Held on 01/11/25. tabs Instructions: Hold while taking Levaquin only for tomorrow trazodone 100 mg tablet 200 mg (2 x 100 mg) PO QHS # 60 tabs 11/07/24 Unknown Rx Held on 01/11/25. Instructions: Hold while taking Levaquin tomorrow. lorazepam 0.5 mg tablet 0.5 mg PO Q12H PRN anxiety 0 11/14/24 Unknown History lovastatin 40 mg tablet 20 mg PO QHS 11/14/24 Unknow n History omeprazole 40 mg capsule,delayed 40 mg PO DAILY Unknown History release aspirin 81 mg capsule 81 mg PO DAILY 01/08/25 Unkn own History furosemide 20 mg tablet 20 mg PO BID 01/08/25 Unknow n History albuterol sulfate 90 mcg/actuation 2 puff inhalation Q 6H PRN 01/11/25 Unknown Rx aerosol inhaler shortness of breath or wheez ing #8.5 grams dextromethorphan-guaifenesin ER 60 1 tab PO Q12H 7 day s #14 tabs 01/11/25 Unknown Rx mg-1,200 mg tab,extend release,12hr (Mucinex DM) ipratropium 0.5 mg-albuterol 3 mg 3 ml inhalation Q20M PRN shortness 01/11/25 Unknown Rx (2.5 mg base)/3 mL nebulization of breath 1 month #90 mL soln levofloxacin 500 mg tablet 500 mg PO DAILY 1 day #1 TA B 01/11/25 Unknown Rx midodrine 10 mg tablet 10 mg PO TIDCM 30 days #90 t abs 01/11/25 Unknown Rx fesoterodine 4 mg tablet,extended 4 mg PO DAILY Unknown History release 24 hr mupirocin 2 % topical ointment 1 applic topical TID Unknown History nitrofurantoin 1 cap PO BID 01/29/25 Unknow n History monohydrate/macrocrystals 100 mg capsule quetiapine 200 mg tablet,extended PO 01/29/25 Unknown History release 24 hr spironolactone 25 mg tablet 25 mg PO DAILY 01/29/25 Un known History vibegron 75 mg tablet (Gemtesa) 75 mg PO DAILY 5 Unknown History Allergy/AdvReac Type Severity Reaction Status Date / Time Penicillins Allergy Intermediate Hives Verified 01/29/25 10:27 carbamazepine (From Tegretol) AdvReac Intermediate Nausea Verified 01/29/25 10:27 benztropine AdvReac Unknown Verified 01/29/25 10:27 diazepam (From Valium) AdvReac Other Verified 01/29/25 10:27 Sulfa (Sulfonamide AdvReac Nausea Verified 01/29/25 10:27 Antibiotics) thioridazine AdvReac Nausea Verified 01/29/25 10:27 thioridazine HCl (From AdvReac Other Verified 01/29/25 10:27 Mellaril) Family History Grandmother Cancer stomach Father Cancer lung Sister Breast cancer Surgical History Hx of surgical procedure History of carpal tunnel surgery History of elbow surgery H/O shoulder surgery H/O hand surgery H/O dilation and curettage Hx of cholecystectomy History of tonsillectomy Social History household members: other details: Living in apt with friends, now moving out without home at discharge. housing: homeless Smoking Status: Heavy Smoker (>10/day) alcohol intake: never substance use type: does not use caffeine: Yes what type of physical activity do you participate in: walking seatbelt use: always do you feel safe at home: Yes Vital Signs Vital Signs Vital Signs: Weight Weight: 246 lb Body Mass Index (BMI) 44.9 Physical Exam Const alert, oriented x3, no apparent distress and well nourished Constitutional Narrative: The patient is morbidly obese. Her BMI is 45.0. General Appearance: cooperative, comfortable and well developed Orientation / Consciousness: awake, oriented to person, oriented to place and oriented to time Exam Limitations: no limitations HEENT normocephalic and head/scalp atraumatic Head and Scalp: normal to inspection, normocephalic and atraumatic Face and Sinus: normal facial exam Nose: external nose normal External Ear: external ears normal Eyes EOMs intact bilaterally General Eye: normal appearance of both eyes Neck full ROM Resp normal respiratory effort, normal air movement, no retractions and no use of accessory muscles Effort and Inspection: able to speak in complete sentences Extremity no calf tenderness Skin Wound Narrative: A very superficial ulceration is noted on the right upper buttock. There is no sign of infection or cellulitis. The ulceration is smaller in size. Dimensionsare documented elsewhere. The ulceration consists of a clustered area of superficial eschar, which is very firmly attached, and does not disengage even with an attempt to unroof using a sterile curette. Neuro oriented x3, CN's II-XII intact bilaterally, moves all extremities and no focal motor deficits Sensorium / Orientation: awake, alert, oriented to person, oriented to place andoriented to time Psych Appearance: grossly normal and appropriate Attitude: calm Activity / Motor Behavior: appropriate eye contact Speech: normal speech Mood & Affect: euthymic mood Thought Process: normal thought process Thought Content: normal thought content Attention / Concentration: attention grossly intact Debridement Note Debridement Note Debridement Free Text: Technically, debridement was not performed. Initial attempt was made to unroof the clustered eschar over the small, superficial ulceration. However, the eschar was somewhat superficial, and the decision was made to forego a formal debridement, but rather to temporize, even expectation that the eschar may slough over the next 10 to 14 days. No debridement was completed: No debridement was completed today Post-Debridement Measurements and Additional Note: Post-Debridement Measurements/Treatment - Nurse 1 - General Ulcer Assessment Start: 01/29/25 10:15 Freq: Status: Active Protocol: GABRIELLA Activity Type Activity Date Activity User E-sign Co-sign Detail Recorded Client Recorded Date Recorded By Document 01/29/25 10:17 [email or web address] [id number] 01/29/25 10:25 01/29/25 10:17 - Today's Visit Information Type of service Initial Visit Arrival Mode Ambulatory Patient Identification Verified (Name & Yes ) Height and Weight Height 5 ft 2 in Weight 246 lb Weight in Pounds 246.0 lbs Body Mass Index (BMI) 44.9 BMI Classification Obese Vital Signs Temperature (97.8 F-99.1 F) 96.6 F L Temperature Source Temporal Pulse Rate (60-100) 89 Pulse Location Monitor Respiratory Rate (12-18) 16 Respiratory rate source Observation Blood Pressure (90/60-120/80) 110/65 Blood Pressure Mean 80 Source Monitor Position Sitting Blood Pressure Location Right Arm History Since Last Visit- (Skip if this is Patient's initial visit) Left Footwear Regular Shoe Right Footwear Regular Shoe Pain Scale: 0-10 Numeric Is Patient Pain Free? Yes - Nurse 1 - General Ulcer Measurement Start: 01/29/25 10:15 Freq: Status: Active Protocol: Activity Type Activity Date Activity User E-sign Co-sign Detail Recorded Client Recorded Date Recorded By Document 01/29/25 10:17 [email or web address] [id number] 01/29/25 10:25 01/29/25 10:17 Wound Center Nurse 1 #1 rt buttock -Current Size (cm) - Length 1 -Current Size (cm) - Width 1 -Current Size (cm) - Depth 0.1 -Total Square Cm 1 -Date of Last Picture (Recall this 01/29/25 field) -Exudate Amt None Present -Texture (Chelsea-wound Skin Appearance) Assessed -Moisture (Chelsea-wound Skin Appearance) Assessed -Color (Chelsea-wound Skin Appearance) Assessed -Temperature (Chelsea-wound Skin No Abnormality Appearance) (Pt Warm) -Tenderness on Palpation (Chelsea-wound No Skin Appearance) -Ulcer Cleansing Soap and Water -Foul Odor after Cleansing No -Anesthetic Used 5% Lidocaine Gel -Wound Comment(s) scabbed - Nurse 2 - General Ulcer CM Notes Start: 01/29/25 10:15 Freq: Status: Active Protocol: Activity Type Activity Date Activity User E-sign Co-sign Detail Recorded Client Recorded Date Recorded By Document 01/29/25 10:45 [email or web address] [id number] 01/29/25 10:48 DS 01/29/25 10:45 Wound Center Nurse 2 -Time 10:45 -Correct Patient Yes -Correct Side, Site, Position Yes -Procedure Performed No -Post Debridement (cm) - Length 2.0 -Post Debridement (cm) - Width 0.3 -Post Debridement (cm) - Depth 0.1 -Total Square (Post) (cm) 0.60 -Area of Debridement (cm) - Length 2.0 -Area of Debridement (cm) - Width 0.3 -Total Square (Area) (cm) 0.60 -Tunneling No -Undermining/Tunneling No -Circular Undermining No -Wound/Ulcer Outcome Not Healed -Foul Odor after Cleansing No -Bioengineered Tissue No Pain Scale: 0-10 Numeric Is Patient Pain Free? Yes - Nurse 3 - General Ulcer D/C NN Start: 01/29/25 10:15 Freq: Status: Active Protocol: Activity Type Activity Date Activity User E-sign Co-sign Detail Recorded Client Recorded Date Recorded By Document 01/29/25 11:02 MELLISA [id number] 01/29/25 11:02 MELLISA 01/29/25 11:02 Wound Care Center Nurse 3 #1 rt buttock -Ulcer Cleansing Rinsed/ Irrigated with Saline -Foul Odor after Cleansing No -Primary Dressing Applied C Hydrogel -Primary Dressing Covered/Secured with Dry Gauze, Secured with Tape -Hydrogel 1 Pain Scale: 0-10 Numeric Is Patient Pain Free? Yes WC - Visit Discharge Discharge Condition Stable Ambulatory Status Ambulatory Transportation Private Auto Medication Reconcilliation completed & Yes provided to patient/care provider Clinical Summary of Care Provided Yes Charges/Coding Visit Charges Office Visits / Consults: 02805 OV L4 New 45min Assessment/Plan Assessment/Plan (1) Decubitus ulcer of buttock, stage 1: CODE(S): L89.301 - Pressure ulcer of unspecified buttock, stage 1 QUALIFIERS: Laterality: right Qualified Code(s): L89.311 - Pressure ulcer of right buttock, stage 1 (2) DM (diabetes mellitus), type 2: CODE(S): E11.9 - Type 2 diabetes mellitus without complications (3) 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 mellitus: CODE(S): E10.22 - Type 1 diabetes mellitus with diabetic chronic kidney disease; N18.30 - Chronic kidney disease, stage 3 unspecified (4) Asthma-COPD overlap syndrome: CODE(S): J44.9 - Chronic obstructive pulmonary disease, unspecified (5) Nicotine addiction: CODE(S): F17.200 - Nicotine dependence, unspecified, uncomplicated (6) Smoking greater than 40 pack years: CODE(S): F17.210 - Nicotine dependence, cigarettes, uncomplicated (7) Encounter for smoking cessation counseling: CODE(S): Z71.6 - Tobacco abuse counseling (8) Urinary incontinence: CODE(S): R32 - Unspecified urinary incontinence QUALIFIERS: Urinary Incontinence type: continuous leakage Qualified Code(s): N39.45 - Continuous leakage (9) PVD (peripheral vascular disease): CODE(S): I73.9 - Peripheral vascular disease, unspecified (10) HLD (hyperlipidemia): CODE(S): E78.5 - Hyperlipidemia, unspecified (11) Paroxysmal atrial fibrillation: CODE(S): I48.0 - Paroxysmal atrial fibrillation (12) COPD (chronic obstructive pulmonary disease): CODE(S): J44.9 - Chronic obstructive pulmonary disease, unspecified QUALIFIERS: COPD type: unspecified COPD Qualified Code(s): J44.9 - Chronic obstructive pulmonary disease, unspecified (13) CKD (chronic kidney disease) stage 3, GFR 30-59 ml/min: CODE(S): N18.30 - Chronic kidney disease, stage 3 unspecified (14) Tardive dyskinesia: CODE(S): G24.01 - Drug induced subacute dyskinesia (15) Asthmatic bronchitis , chronic: CODE(S): J44.9 - Chronic obstructive pulmonary disease, unspecified; J45.909 - Unspecified asthma, uncomplicated (16) Obesity, morbid, BMI 40.0-49.9: CODE(S): E66.01 - Morbid (severe) obesity due to excess calories (17) Bipolar disorder: CODE(S): F31.9 - Bipolar disorder, unspecified QUALIFIERS: Active/Remission status: remission status unspecified Qualified Code(s): F31.9 - Bipolar disorder, unspecified PLAN: Plan This is a morbidly obese, diabetic 65-year-old female who presented with a small, superficial ulceration of the right upper buttock. The ulceration appears to have been present for approximately 3 weeks. An initial attempt at debridement demonstrated the eschar to be firmly attached, but resistant to elevation from the underlying ulcer. Therefore, the eschar was left in place, anticipating that it may spontaneously slough over the next 10 to 14 days. The patient has been instructed to implement offloading measures. These measures have been discussed in detail. Patient has been counseled to discontinue her smoking habit. She has been encouraged to optimize her nutritional intake. We are to implement the use of collagen hydrogel topically to the ulceration on a daily basis, covered with gauze. The patient is to return in 2 weeks for reevaluation. Total time: 48 minutes 01/31/25 1213 <Electronically signed by Vijay Love MD> Cosigner Signature (if applicable): CC: ~ Signed [facility] Work Phone: [phone] Progress note Author Taylor Julian [facility] Note Date/Time January 31, 2025 1:25 pm [facility] of [address] [place] [address] OFFICE VISIT Date of Service: 01/31/25 MR#: [id number] Acct: [id number] Name: PERNELL RODRIGUEZ CHEKO Rep #: [id number] : 1960 Provider: GAY Julian Age/Sex: 65/F Location: [facility].PM[facility] Status: Signed Assessment and Plan Assessment and Plan (1) Dyspnea: Status: Chronic Qualifiers: Dyspnea type: dyspnea on exertion Qualified Code(s): R06.09 - Other forms of dyspnea Plan: I did we will perform a pulmonary function test and a 6-minute walk test. The patient is hesitant to perform any testing at this time. She is in between homes. She states that if I get a home that has gas heat I will be able to useoxygen anyway. She is currently residing with a friend but using multiple social insurance specialist to find housing. She was evicted from her home in July and has been homeless and moving about since. In the meantime, I will keep her on nebulized ipratropium bromide with albuterol. She was provided with a nebulizerupon hospital discharge. It was set up with a mouthpiece. The patient prefers to use a mask. I was able to find a mask to provide her in the office today. The nebulizer was set up and she received a DuoNeb here today. I refilled an albuterol rescue inhaler. The patient states that for the most part she is ableto control her symptoms with albuterol as needed and DuoNebs. Follow-up in the office in 3 months to evaluate if we are able to perform testing. She has been encouraged to contact our office with any new or worsening symptoms in the meantime. Orders: Orders Aerosol treatment (first) Today J44.9 - Chronic obstructive pulmonary disease, unspecified Medications: New ipratropium-albuterol 0.5 mg-3 mg(2.5 mg base)/3 mL 3 mL continuous nebulization ONCE 3 mL 0RF shortness of breath J44.9 - Chronic obstructive pulmonary disease, unspecified Refilled ipratropium-albuterol 0.5 mg-3 mg(2.5 mg base)/3 mL for 3 doses 3 mL inhalation Q20M 1 month PRN 90 mL 0RF shortness of breath albuterol sulfate 90 mcg/actuation 2 puffs inhalation Q6H PRN 8.5 grams 0RF shortness of breath or wheezing Plan Details Additional Comments: This note was generated with [employer] software. It may contain incorrectwords, spelling, and punctuation that were not noted in checking the note beforesigning. Follow Up: 3 Months HPI Hospital FU Chief Complaint: Hospital follow-up HPI Comments Details: This patient presents to the office today for hospital follow-up. She is ambulatory and on room air. She was hospitalized at [facility] from January 08 through January 11, 2025 for sepsis, encephalopathy and urinary tract infection. She had presented to the emergency department by squad in atrial flutter with heart rate of 154. She was found to be septic from urinary tract infection. She was treated with IV Levaquin encephalopathy improved within 24 to 48 hours. She responded well to IV fluids. She has known debility with a poor social situation due to homelessness. She requires 2 L/min of supplemental oxygen. She most recently was using DuoNebs routinely. However when she was evicted in July she lost her nebulizer machine. On her recent hospital stay she was provided with a new nebulizer but she feels it is too complicated. She is also frustrated because it only has a mouthpiece and did not come with a facemask. She continues to smoke 1-1/2 packs/day of cigarettes. She is not currently on supplemental oxygen. She does have shortness of breath that is worse with exertion. She denies any cough, sputum production or hemoptysis. She has not had any wheezing, chest tightness, chest pain or palpitations. She denies any fever, chills or body aches. 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 Assembler Required: No DME Vendor: N/a Accompanied by: Self Is patient in pain?: No Allergies Penicillins Allergy (Intermediate, Verified 01/29/25 10:27) Hives carbamazepine (From Tegretol) Adverse Reaction (Intermediate, Verified 01/29/25 10:27) Nausea benztropine Adverse Reaction (Verified 01/29/25 10:27) Unknown diazepam (From Valium) Adverse Reaction (Verified 01/29/25 10:27) Other Sulfa (Sulfonamide Antibiotics) Adverse Reaction (Verified 01/29/25 10:27) Nausea thioridazine Adverse Reaction (Verified 01/29/25 10:27) Nausea thioridazine HCl (From Mellaril) Adverse Reaction (Verified 01/29/25 10:27) Other Medications ?Medication ?Instructions ?Recorded ?Confirmed ?Type apixaban 5 mg tablet (Eliquis) 5 mg PO Q12 #60 tabs 01/31/25 Rx quetiapine 100 mg tablet 200 mg (2 x 100 mg) PO BID # 120 11/07/24 01/31/25 Rx Held on 01/11/25. tabs Instructions: Hold while taking Levaquin only for tomorrow trazodone 100 mg tablet 200 mg (2 x 100 mg) PO QHS # 60 tabs 11/07/24 01/31/25 Rx Held on 01/11/25. Instructions: Hold while taking Levaquin tomorrow. lorazepam 0.5 mg tablet 0.5 mg PO Q12H PRN anxiety 0 11/14/24 01/31/25 History lovastatin 40 mg tablet 20 mg PO QHS 11/14/24 History omeprazole 40 mg capsule,delayed 40 mg PO DAILY 01/31/25 History release aspirin 81 mg capsule 81 mg PO DAILY 01/08/2501/15 History furosemide 20 mg tablet 20 mg PO BID 01/08/25 History levofloxacin 500 mg tablet 500 mg PO DAILY 1 day #1 TA B 01/11/25 01/31/25 Rx mupirocin 2 % topical ointment 1 applic topical TID 01/31/25 History nitrofurantoin 1 cap PO BID 01/29/25 History monohydrate/macrocrystals 100 mg capsule quetiapine 200 mg tablet,extended PO 01/29/25 01/31/25 History release 24 hr spironolactone 25 mg tablet 25 mg PO DAILY 01/29/25 History vibegron 75 mg tablet (Gemtesa) 75 mg PO DAILY 5 01/31/25 History albuterol sulfate 90 mcg/actuation 2 puff inhalation Q 6H PRN 01/31/25 01/31/25 Rx aerosol inhaler shortness of breath or wheez ing #8.5 grams citalopram 10 mg tablet 10 mg PO DAILY 01/31/25 His tory ipratropium 0.5 mg-albuterol 3 mg 3 ml inhalation Q20M PRN shortness 01/31/25 01/31/25 Rx (2.5 mg base)/3 mL nebulization of breath 1 month #90 mL soln nitroglycerin 0.4 mg sublingual 0.4 mg sublingual ELZA Y 01/31/25 01/31/25 History tablet Have you fallen in the past year?: Yes PFSH Medical History (Reviewed 01/31/25 @ 13:00 by Taylor Julian CATEGORY DEVELOPMENT MANAGER, CATEGORY DEVELOPMENT MANAGER-C) Decubitus ulcer of buttock, stage 1 Encounter for smoking cessation counseling History of COPD Urinary tract infection History of echocardiogram Wears glasses Anxiety Depression Post-menopausal History of renal disease High cholesterol Back pain TIA (transient ischemic attack) Gastric reflux Smoker Shortness of breath on exertion History of pain when walking History of edema Cardiology follow-up encounter History of heart attack Chest pain History of left heart catheterization (LHC) (~12/30/20) CKD (chronic kidney disease) stage 3, GFR 30-59 ml/min Lung nodule COPD (chronic obstructive pulmonary disease) Paroxysmal atrial fibrillation Elevated liver enzymes Acute respiratory failure with hypoxia Stroke IBS (irritable bowel syndrome) Hyperlipidemia Heart disease Migraines Frequent headaches Gastrointestinal problem Diabetes History of back problems Asthma Arthritis Surgical History (Reviewed 01/31/25 @ 13:00 by Taylor Julian CATEGORY DEVELOPMENT MANAGER, CATEGORY DEVELOPMENT MANAGER-C) Hx of surgical procedure History of carpal tunnel surgery History of elbow surgery H/O shoulder surgery H/O hand surgery H/O dilation and curettage Hx of cholecystectomy History of tonsillectomy Family History (Reviewed 01/31/25 @ 13:00 by Taylor Julian CATEGORY DEVELOPMENT MANAGER, CATEGORY DEVELOPMENT MANAGER-C) Grandmother Cancer stomach Father Cancer lung Sister Breast cancer Social History (Reviewed 01/31/25 @ 13:00 by Taylor Julian CATEGORY DEVELOPMENT MANAGER, CATEGORY DEVELOPMENT MANAGER-C) household members: other details: Living in apt with friends, now moving out without home at discharge. housing: homeless Smoking Status: Heavy Smoker (>10/day) alcohol intake: never substance use type: does not use caffeine: Yes what type of physical activity do you participate in: walking seatbelt use: always do you feel safe at home: Yes Review of Systems Resp Respiratory: Yes as per HPI Exam Const Constitutional: Positive conversant, cooperative, in no acute respiratory distress, well developed, well nourished, smells of smoke and obese Head Head: Yes normocephalic, Yes atraumatic and No cyanosis of lips/distal nose Eyes Eye: Positive clear conjunctiva; Negative nystagmus Ears Ear: Positive hard of hearing and external ears normal Nose Nose: Yes external nose normal Mouth Mouth: Positive oral mucosae normal and edentulous Neck Neck: Positive normal visual inspection, full ROM and trachea midline Chest Wall Chest: Positive normal inspection of the chest and symmetric chest movement; Negative increased A/P diameter Resp lung sounds: Positive clear to auscultation, diminished lung sounds, wheezes, normal expiratory time and normal respiratory effort; Negative rhonchi, rales or use of accessory muscles Cardio Cardiac: Positive regular rate, regular rhythm, S1 normal and S2 normal; Negative murmur GI GI: Positive obese Genitourinary: Positive deferred Musc Musculoskeletal: Positive steady gait and ROM normal; Negative kyphosis or scoliosis Skin Pulmonary Skin Exam: Positive intact; Negative lesion, rash or ulcers Extremities Extremities: Yes capillary refill normal, No clubbing, No cyanosis and No edema Neuro Neurologic: Yes no focal neuro deficits, Yes conversant, Yes cooperative, Yes normal cognition, Yes normal coordination, Yes normal concentration and Yes understands questions Psych Appearance: Positive eye contact Mood: Positive irritable mood Affect: Positive anxious affect Coding Level of Care Code Off vis,est,level 3 Diagnoses Dyspnea on exertion R06.09 Dyspnea type: dyspnea on exertion Clinical Quality Measures Falls Risk Screening/Assistive Devices Have you fallen in the past year?: Yes 01/31/25 1325 <Electronically signed by Taylor hassan NP CATEGORY DEVELOPMENT MANAGER-C> Date _ Taylor SHETHC Cosigner Signature: Date (if applicable) CC: Dr. Homer Bradford MD ~ [facility] Work Phone: [phone]) [phone] Telephone encounter Note* Telephone Encounter - Aspen Bell LPN - 01/30/2025 12:56 PM EDT Pt notified rx's refilled to get her to her Cardiology appointment and then needs to get refills from [facility]. Pt verbalizes understanding. Aspen Bell LPN [facility]07-16-2025 Miscellaneous Notes* Telephone Encounter - Aspen Bell LPN - 01/30/2025 12:56 PM EDT Pt notified rx's refilled to get her to her Cardiology appointment and then needs to get refills from [facility]. Pt verbalizes understanding. Aspen Bell LPN * Telephone Encounter - Meagan Yusuf PA-C - 01/30/2025 12:25 PM EDT The following approved medication requests have been transmitted electronically. Requested Prescriptions Signed Prescriptions Disp Refills furosemide (LASIX) 20 mg tablet 60 tablet 0 Sig: Take 1 tablet by mouth two times a day. To get her to her appt with cardio Authorizing Provider: MEAGAN YUSUF spironolactone (ALDACTONE) 25 mg tablet 30 tablet 0 Sig: Take 1 tablet by mouth once daily. To get her to her appt with cardio Authorizing Provider: MEAGAN YUSUF PA-C * Telephone Encounter - Aspen Bell LPN - 01/30/2025 12:02 PM EDT Spoke with pt. States she has one scheduled in Feb. Believes it's the 3rd or 7th. Advised pt would contact her to let her know if refills have been sent in for her. 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 * Telephone Encounter - Priyanka Chavez RN - 2025 3:32 PM EDT The patient has been identified by name and date of : Yes Caregiver verified no other encounters exist for this prescription request: Yes Caregiver confirmed with patient/requestor that no other refills are due, in the near future, with this provider at this time: Yes The last office visit in the department: 01/25/2025 Does the patient have a future office visit with this provider/department: Yes 02/21/2025 Requested Prescriptions Pending Prescriptions Disp Refills furosemide (LASIX) 20 mg tablet 60 tablet Sig: Take 1 tablet by mouth two times a day. To get her to her appt with cardio spironolactone (ALDACTONE) 25 mg tablet 30 tablet Sig: Take 1 tablet by mouth once daily. To get her to her appt with cardio Priyanka Chavez RN [facility] Telephone encounter Note * Telephone Encounter - Meagan Yusuf PA-C - 01/30/2025 12:25 PM EDT The following approved medication requests have been transmitted electronically. Requested Prescriptions Signed Prescriptions Disp Refills furosemide (LASIX) 20 mg tablet 60 tablet 0 Sig: Take 1 tablet by mouth two times a day. To get her to her appt with cardio Authorizing Provider: MEAGAN YUSUF spironolactone (ALDACTONE) 25 mg tablet 30 tablet 0 Sig: Take 1 tablet by mouth once daily. To get her to her appt with cardio Authorizing Provider: MEAGAN YUSUF PA-C [facility]07-16-2025 Telephone encounter Note* Telephone Encounter - Aspen Bell LPN - 01/30/2025 12:02 PM EDT Spoke with pt. States she has one scheduled in Feb. Believes it's the 3rd or 7th. Advised pt would contact her to let her know if refills have been sent in for her. 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 [facility]07-15-2025 Telephone encounter Note* Telephone Encounter - Priyanka Chavez RN - 2025 3:32 PM EDT The patient has been identified by name and date of : Yes Caregiver verified no other encounters exist for this prescription request: Yes Caregiver confirmed with patient/requestor that no other refills are due, in the near future, with this provider at this time: Yes The last office visit in the department: 01/25/2025 Does the patient have a future office visit with this provider/department: Yes 02/21/2025 Requested Prescriptions Pending Prescriptions Disp Refills furosemide (LASIX) 20 mg tablet 60 tablet Sig: Take 1 tablet by mouth two times a day. To get her to her appt with cardio spironolactone (ALDACTONE) 25 mg tablet 30 tablet Sig: Take 1 tablet by mouth once daily. To get her to her appt with cardio Priyanka Chavez RN [facility]07-15-2025 Telephone encounter Note* Telephone Encounter - Aspen Bell LPN - 2025 3:07 PM EDT Pt notified of same with verbalized understanding. Aspen Bell LPN [facility]07-15-2025 Miscellaneous Notes* Telephone Encounter - Aspen Bell LPN - 2025 3:07 PM EDT Pt notified of same with verbalized understanding. Aspen Bell LPN * Telephone Encounter - Meagan Yusuf PA-C - 01/28/2025 11:09 AM EDT Noted. She should schedule once able unless she wants to see someone else. * Telephone Encounter - Umm York RN - 01/28/2025 9:47 AM EDT Patient notified of results and provider's instructions. Patient verbalizes understanding. Patient has been trying to get a hold of Dr. Alba's office. They are not scheduling until 02/15 due to office remodel. Umm York RN * Telephone Encounter - Aspen Bell LPN - 01/28/2025 9:42 AM EDT Attempted to contact pt. No answer and vm is not set up. Will need to keep trying to contact pt. Also sent pt a [facility] message to contact office. Aspen Bell LPN * Telephone Encounter - Meagan Yusuf PA-C - 01/28/2025 8:56 AM EDT Urine culture is negative. She needs to see urology. This is a consult Dr. Bradford placed in December for Dr. Alba. Did she get scheduled? Meagan Yusuf PA-C documented [facility] Evaluation note* Diagnosis Onset Date Resolution Status Admit Date Decubitus ulcer of buttock, stage 1 acute 2025 9:56am Encounter for smoking cessation counseling acute 2025 9:56am Paroxysmal atrial fibrillation acute 2025 9:56am Smoking greater than 40 pack years acute 2025 9:56am Asthma-COPD overlap syndrome chronic 2025 9:56am Asthmatic bronchitis , chronic chronic 2025 9:56am Bipolar disorder chronic January 9:56am CKD (chronic kidney disease) stage 3, GFR 30-59 ml/min chronic January 152024 9:56am 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 mellitus chronic January 29 9:56am COPD (chronic obstructive pulmonary disease) chronic January 29 9:56am DM (diabetes mellitus), type 2 chronic 2025 9:56am HLD (hyperlipidemia) chronic 2025 9:56am Nicotine addiction chronic January 152024 9:56am Obesity, morbid, BMI 40.0-49.9 chronic 2025 9:56am Tardive dyskinesia chronic January 152024 9:56am Urinary incontinence chronic 2025 9:56am PVD (peripheral vascular disease) suspected 2025 9:56am Dyspnea chronic January 31 12:32pm Urge incontinence acute February 27, 2025 1:59pm Urinary tract infection noneactive A ugust 2024 1:59pm Overactive bladder acute March 11, 2025 11:16am Urge incontinence acute March 11, 2025 11:16am Urinary tract infection acute A ugust 2024 11:16am [facility] Work Phone: [phone] 128-317907-14-2025 Telephone encounter Note* Telephone Encounter - Meagan Yusuf PA-C - 01/28/2025 11:09 AM EDT Noted. She should schedule once able unless she wants to see someone else. [facility]07-14-2025 Telephone encounter Note* Telephone Encounter - Umm York RN - 01/28/2025 9:47 AM EDT Patient notified of results and provider's instructions. Patient verbalizes understanding. Patient has been trying to get a hold of Dr. Alba's office. They are not scheduling until 02/15 due to office remodel. Umm York RN [facility]07-14-2025 Telephone encounter Note* Telephone Encounter - Aspen Bell LPN - 01/28/2025 9:42 AM EDT Attempted to contact pt. No answer and vm is not set up. Will need to keep trying to contact pt. Also sent pt a MC message to contact office. Aspen Bell LPN [facility]07-14-2025 Telephone encounter Note* Telephone Encounter - Meagan Yusuf PA-C - 01/28/2025 8:56 AM EDT Urine culture is negative. She needs to see urology. This is a consult Dr. Bradford placed in December for Dr. Alba. Did she get scheduled? Meagan Yusuf PA-C [facility]07-11-2025 NoteHNO ID: [id number] Author: MEAGAN YUSUF PA-C Service: ? Author Type: Physician Cooling Machine Operator Type: Progress Notes Filed: 01/25/2025 11:00 Note Text: Chief Complaint No chief complaint on file. HPI Pernell Rodriguez is a 64 year old female who presents here today for Urinary frequency. Urinary Frequency: - Increased urinary frequency for the past few days. - Denies hematuria. - Lower abdominal pain present. - Previous episode of similar symptoms; urine showed a small amount of blood. Buttocks Sore: - Pernell noticed a sore on the buttocks about a week ago. - Unable to see the sore but can feel it; located in the middle of the buttocks. - No cream or ointment applied. Allergies: - Pernell is allergic to penicillins and sulfa drugs. Past medical history, appointments, medications, allergies reviewed. Previous Medical History PAST MEDICAL HISTORY Diagnosis Date ASHD (arteriosclerotic heart disease) 10/25/[address] Goins Bilateral leg edema 04/25/2015 Bipolar affective disorder (HCC) 04/25/[address] Colindres Chest pain 02/14/[address] Jacob in [facility]. Had a normal cardiac CTA in 2009 with no calcium. Chronic back pain greater than 3 months duration 04/02/2015 Chronic insomnia 03/12/2020 Ilya Calderón ([facility]) on melatonin. Chronic obstructive pulmonary disease (HCC) 04/25/2015 Chronic pain 01/14/2014 Constipation 02/12/2014 [place] or callus 11/16/2015 Current use of proton pump inhibitor 10/11/2017 CVA (cerebral infarction) 01/14/2014 Diabetic eye exam (HCC) 01/14/[address] Sanchez last done 03/02/2019 Diabetic foot ([facility]) 01/14/[address] Martins Extrapyramidal reaction 01/14/2014 Gastroesophageal reflux disease without esophagitis 04/25/2015 History of CVA (cerebrovascular accident) 04/25/[address] Ilya Calderón ([facility]) Hives 01/14/2014 Hypotension 01/14/2014 Sees Ilya Calderón ([facility]) and has her on fludrocortisone Incontinence of feces 07/08/2017 Irritable bowel syndrome with both constipation and diarrhea 04/28/2017 Low back pain 01/14/2014 Low vitamin B12 level 07/16/2022 Lumbosacral neuritis 04/16/2014 Major depressive disorder, recurrent episode, moderate ([facility]) 04/25/2015 On disability Migraine without aura and without status migrainosus, not intractable 04/28/[address] Calderón Mixed hyperlipidemia 01/14/2014 Mixed incontinence urge and stress (male)(female) 07/25/2018 Morbid obesity due to excess calories (HCC) 10/27/2016 Muscle weakness (generalized) 07/25/2018 Myofascial pain 04/16/2014 Nodule of left lung 12/17/2015 CT 09/2018 still stable, no further CT's needed. Seen on CT of abd/pelv 11/2015. 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 Physical deconditioning 04/02/2015 PMH - PAST MEDICAL HISTORY OF ovarian cysts PMH - PAST MEDICAL HISTORY OF bladder tipped, has incontience PMH - PAST MEDICAL HISTORY OF irregular heart beat Smoker 11/20/2020 Started age 15 at 1.5 PPD Stage 3b chronic kidney disease (HCC) 11/24/2020 Tardive dyskinesia 03/12/2020 Ilya Calderón ([facility]) Type 2 diabetes mellitus with stage 3b chronic kidney disease (HCC) 04/25/2015 Type 2 diabetes mellitus without complication (HCC) 04/25/2015 Urinary incontinence 07/08/2017 Well adult exam 10/27/2016 last done: 06/09/2022 Previous Surgical History PAST SURGICAL HISTORY Procedure Laterality Date *STRESS TEST PC 05/06/2016 WNL 2D ECHO (EXEP) 01/14/2014 EF=65% Trival [place], TI, PI, LA enlarged. CARPAL TUNNEL Bilateral 08/28 and 09/25 COLONOSCOPY FLX DX W/COLLJ SPEC WHEN PFRMD 2011 [facility] Colonoscopy, no polyps repeat 10 yrs CRYOCAUTERY OF CERVIX or twice DILATION AND CURETTAGE DXAND/THER NONOBSTETRIC Dilation AND curettage ESOPHAGOGASTRODUODENOSCOPY TRANSORAL DIAGNOSTIC EGD LIG/TRNSXJ FLP TUBE ABDL/VAG APPR UNI/BI Tubal ligation PAST SURGICAL HISTORY OF 07/2015 had left medial elbow sugery but can't explain for what. PAST SURGICAL HISTORY OF Right 2012 repair rotator cuff and bone spurs PAST SURGICAL HISTORY OF 09/09/2020 bladder interstim for overactive bladder per Dr. Alba PAST SURGICAL HISTORY OF cholecystectomy PT ED UROLOGY 08/2020 IP[facility] Family History FAMILY HISTORY Problem Relation Age of Onset Hypertension Mother Diabetes Mother other (hysterectomy) Mother fibroids other (hysterectomy) Maternal Grandmother fibroids Heart Son irregular heart beat Cancer Paternal Aunt No Ocular Disease No Family History Patient Allergies ALLERGIES Allergen Reactions Penicillins Hives Tetanus, Diphtheria* Swelling local reaction Aspirin Unknown Benztropine Unknown Diazepam Unknown Imodium [Loperamide] Other: See Comments Chest pain Mellaril [Thioridaz* GI Upset Pneumova (more content not included)...[facility]07-11-2025 History of Present illness Narrative* Meagan Yusuf PA-C - 01/25/2025 10:28 AM EDT Chief Complaint No chief complaint on file. HPI Pernell Rodriguez is a 64 year old female who presents here today for Urinary frequency. Urinary Frequency: - Increased urinary frequency for the past few days. - Denies hematuria. - Lower abdominal pain present. - Previous episode of similar symptoms; urine showed a small amount of blood. Buttocks Sore: - Pernell noticed a sore on the buttocks about a week ago. - Unable to see the sore but can feel it; located in the middle of the buttocks. - No cream or ointment applied. Allergies: - Pernell is allergic to penicillins and sulfa drugs. Past medical history, appointments, medications, allergies reviewed. Previous Medical History PAST MEDICAL HISTORY Diagnosis Date ASHD (arteriosclerotic heart disease) 10/25/[address] Goins Bilateral leg edema 04/25/2015 Bipolar affective disorder (HCC) 04/25/[address] Colindres Chest pain 02/14/[address] Jacob in [facility]. Had a normal cardiac CTA in 2009 with no calcium. Chronic back pain greater than 3 months duration 04/02/2015 Chronic insomnia 03/12/2020 Ilya Calderón ([facility]) on melatonin. Chronic obstructive pulmonary disease (HCC) 04/25/2015 Chronic pain 01/14/2014 Constipation 02/12/2014 [place] or callus 11/16/2015 Current use of proton pump inhibitor 10/11/2017 CVA (cerebral infarction) 01/14/2014 Diabetic eye exam (HCC) 01/14/[address] Sanchez last done 03/02/2019 Diabetic foot (HCC) 01/14/[address] Martins Extrapyramidal reaction 01/14/2014 Gastroesophageal reflux disease without esophagitis 04/25/2015 History of CVA (cerebrovascular accident) 04/25/[address] Ilya Calderón ([facility]) Hives 01/14/2014 Hypotension 01/14/2014 Sees Ilya Calderón ([facility]) and has her on fludrocortisone Incontinence of feces 07/08/2017 Irritable bowel syndrome with both constipation and diarrhea 04/28/2017 Low back pain 01/14/2014 Low vitamin B12 level 07/16/2022 Lumbosacral neuritis 04/16/2014 Major depressive disorder, recurrent episode, moderate ([facility]) 04/25/2015 On disability Migraine without aura and without status migrainosus, not intractable 04/28/[address] Calderón Mixed hyperlipidemia 01/14/2014 Mixed incontinence urge and stress (male)(female) 07/25/2018 Morbid obesity due to excess calories ([facility]) 10/27/2016 Muscle weakness (generalized) 07/25/2018 Myofascial pain 04/16/2014 Nodule of left lung 12/17/2015 CT 09/2018 still stable, no further CT's needed. Seen on CT of abd/pelv 11/2015. 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 Physical deconditioning 04/02/2015 PMH - PAST MEDICAL HISTORY OF ovarian cysts PMH - PAST MEDICAL HISTORY OF bladder tipped, has incontience PMH - PAST MEDICAL HISTORY OF irregular heart beat Smoker 11/20/2020 Started age 15 at 1.5 PPD Stage 3b chronic kidney disease (HCC) 11/24/2020 Tardive dyskinesia 03/12/2020 Ilya Calderón ([facility]) Type 2 diabetes mellitus with stage 3b chronic kidney disease (HCC) 04/25/2015 Type 2 diabetes mellitus without complication ([facility]) 04/25/2015 Urinary incontinence 07/08/2017 Well adult exam 10/27/2016 last done: 06/09/2022 Previous Surgical History PAST SURGICAL HISTORY Procedure Laterality Date *STRESS TEST PC 05/06/2016 WNL 2D ECHO (EXEP) 01/14/2014 EF=65% Trival [place], TI, PI, LA enlarged. CARPAL TUNNEL Bilateral 08/28 and 09/25 COLONOSCOPY FLX DX W/COLLJ SPEC WHEN PFRMD 2011 [facility] Colonoscopy, no polyps repeat 10 yrs CRYOCAUTERY OF CERVIX or twice DILATION & CURETTAGE DX&/THER NONOBSTETRIC Dilation & curettage ESOPHAGOGASTRODUODENOSCOPY TRANSORAL DIAGNOSTIC EGD LIG/TRNSXJ FLP TUBE ABDL/VAG APPR UNI/BI Tubal ligation PAST SURGICAL HISTORY OF 07/2015 had left medial elbow sugery but can't explain for what. PAST SURGICAL HISTORY OF Right 2011 repair rotator cuff and bone spurs PAST SURGICAL HISTORY OF 09/09/2020 bladder interstim for overactive bladder per Dr. Alba PAST SURGICAL HISTORY OF cholecystectomy PT ED UROLOGY 08/2020 IPG Family History FAMILY HISTORY Problem Relation Age of Onset Hypertension Mother Diabetes Mother other (hysterectomy) Mother fibroids other (hysterectomy) Maternal Grandmother fibroids Heart Son irregular heart beat Cancer Paternal Aunt No Ocular Disease No Family History Patient Allergies ALLERGIES Allergen Reactions Penicillins Hives Tetanus, Diphtheria* Swelling local reaction Aspirin Unknown Benztropine Unknown Diazepam Unknown Imodium [Loperamide] Other: See Comments Chest pain Mellaril [Thioridaz* GI Upset Pneumovax 23 [Pneum* Intolerance Sulfa (Sulfonamide * GI Upset Causes vomiting and rash Tegretol [Carbamaze* GI Upset Current Medications Current Outpatient Medications on File Prior to Visit Medication Sig midodrine (PROAMATINE) 10 mg tablet Take 10 mg by mouth three times a day. lovastatin 40 mg tablet TAKE 1 TABLET BY MOUTH DAILY AT BEDTIME. FOR CHOLESTEROL. LORazepam (ATIVAN) 0.5 mg Take by mouth two times a day as needed. fesoterodine (TOVIAZ) 4 mg Tb24 extended release tablet Take 4 mg by mouth once daily. spironolactone (ALDACTONE) 25 mg tablet Take 1 tablet by mouth once daily. To get her to her appt with cardio furosemide (LASIX) 20 mg tablet Take 1 tablet by mouth two times a day. To get her to her appt withcardio nitroglycerin sublingual (NITROQUICK) 0.4 mg SL tablet Dissolve 1 tablet under the tongue every 5 minutes as needed for chest pain. MEDICAL SUPPLY Adult Size Pull On XXL/Bariatric needs 6 a day, Dx: N39.46, R15.9 and M62.81 omeprazole (PRILOSEC) 40 mg capsule Take 1 capsule by mouth once daily. hyoscyamine SR (LEVBID) 0.375 mg 12 hr tablet Take 1 tablet by mouth two times a day. MEDICAL SUPPLY Please replace pull up every 1.5-2 hrs while awake and 1-3 times a night to reduce risk of skin break down and secondary infections. #240 a month Dx: N39.46 and R15.9 traZODone (DESYREL) 100 mg tablet 1 tablet daily at bedtime. Per psych: Dr. Alvarez, not on as of 11/16/2023 QUEtiapine ER (SEROQUEL XR) 200 mg 24 hr tablet Take 1 tablet by mouth two times a day. Per psych, Dr. Negrete, not on as of 11/16/2023 citalopram hydrobromide (CELEXA) 10 mg tablet Take 1 tablet by mouth once daily. Per psych, Dr. Negrete, albuterol HFA (VENTOLIN HFA) 90 mcg/actuation inhaler INHALE 2 PUFFS INSTRUCTED EVERY FOUR HOURSAS NEEDED. Dr. Christopher: Pulm apixaban (ELIQUIS) 5 mg tab(s) Take 1 tablet by mouth twice daily. Per Cardio, Fish COMPOUNDED PRESCRIPTION Adult diapers size XL Change diaper up to seven times a day. # 210 diapers With 5 refills Dx: R32 and R15.9 No current facility-administered medications on file prior to visit. Social History Social History Tobacco Use Smoking status: Every Day Current packs/day: 2.00 Average packs/day: 2.0 packs/day for 50.0 years (100.0 ttl pk-yrs) Types: Cigarettes Smokeless tobacco: Never Tobacco comments: 1.5 to 2 packs/day Vaping Use Vaping status: Never Used Substance Use Topics Alcohol use: No Drug use: No Review of Symptoms REVIEW OF SYSTEMS SEE HPI EXAM: BP 110/70 (BP Site: Right Arm, BP Position: Sitting, BP Cuff Size: Large Adult) Pulse 85 Temp 36.8 C (98.2 F) Resp 18 Wt 112 kg (247 lb) LMP 02/22/2006 SpO2 93% BMI 44.04 kg/m GENERAL: NAD, alert and oriented. SKIN: Scab noted on buttocks with surrounding erythema, tenderness upon palpation. No other rash orskin lesions. Abdomen: obese Abdomen. BS wnl. Health Maintenance List Anxiety Screening Never done Shingrix Vaccine(1 of 2) Never done Pneumococcal Vaccine: 50+(2 of 2 - PCV) due on 07/18/2012 RSV Vaccine(1 - Risk 60-74 years 1-dose series) Never done Cervical Cancer Screening due on 05/22/2023 Dilated Retinal Exam due on 01/05/2024 Covid-19 Vaccine(2023- season) Never done Urine Albumin:Creatinine Ratio due on 09/26/2024 Mammogram Screening due on 12/21/2024 Colorectal Cancer Screening due on 03/18/2025 Diabetic Foot Exam due on 03/22/2025 HbA1C due on 06/19/2025 LDL Cholesterol due on 12/18/2025 Serum Creatinine due on 01/17/2026 Hemoglobin/Hematocrit due on 01/17/2026 Annual PCP Team Chronic Disease Visit due on 01/25/2026 Hepatitis C Screening Completed HIV Screening Completed DTaP,Tdap,Td Vaccine Discontinued Lung Cancer Screening Discontinued Influenza Vaccine Discontinued Data reviewed Latest Ref Rng 01/25/2025 GLUCOSE UA (POCT) Negative mg/dL Negative BILIRUBIN UA (POCT) Negative Negative KETONE UA (POCT) Negative mg/dL Negative SPECIFIC GRAVITY UA (POCT) 1.005 - 1.030 1.020 HEMOGLOBIN/BLOOD UA (POCT) Negative Trace-intact ! PH UA (POCT) 4.5 - 8.0 6.0 PROTEIN UA (POCT) Negative mg/dL Negative UROBILINOGEN UA (POCT) Normal E.U./dL 0.2 NITRITE UA (POCT) Negative Negative LEUKOCYTES UA (POCT) Negative Negative COLOR UA (POCT) Yellow CLARITY UA (POCT) Clear Legend: ! Abnormal Assessment and Plan 1. Urinary frequency (R35.0) 2. Dysuria (R30.0) - Urinalysis shows microscopic hematuria; urine culture pending. - Differential diagnoses include UTI and interstitial cystitis. - Initiated antibiotic therapy; prescription sent to [facility]. - Will reassess based on urine culture results. 3. Pressure injury of sacral region, stage 2 (HCC) (L89.152) - Exam reveals a crusted lesion with surrounding erythema and tenderness. - Initiated topical antibiotic ointment; prescription sent to [facility]. - Monitor for signs of infection and promote healing. Meagan Yusuf PA-C Recording using [employer] software for draft documentation of the visit was discussed with the patient/authorized school admissions representative; all questions welcomed and answered. Patient/authorized school admissions representative agreed to proceed [facility] Tele[facility] encounter Note * Telephone Encounter - Aspen Bell LPN - 01/25/2025 10:07 AM EDT Pt notified of message at ov 01/25/25. Aspen Bell LPN [facility]07-11-2025 Miscellaneous Notes* Telephone Encounter - Aspen Bell LPN - 01/25/2025 10:07 AM EDT Pt notified of message at ov 01/25/25. Aspen Bell LPN * Telephone Encounter - Aspen Bell LPN - 01/22/2025 1:46 PM EDT Attempted to contact pt. No answer and vm has not been set up. was logged into on 12/18/24. Sent pt a msg to contact office. Aspen Bell LPN * Telephone Encounter - Caterina Salazar RN - 01/21/2025 7:56 PM EDT Called Pt and no answer. Pt did not have voicemail set up. Will need to call back. Caterina Salazar, RN * Telephone Encounter - Homer Bradford MD - 01/21/2025 4:40 PM EDT This script was given 12/18/2024 with one refill which would get her till early February. Patient was informed this was a one time script till she got in to see Cardio and needs to do so. She should see if the [facility] [employer] can help with this. * Telephone Encounter - Hannah Delgadillo - 01/21/2025 11:48 AM EDT Prescription Refill Information The patient has been identified by name and date of : Yes Caregiver verified no other encounters exist for this prescription request: Yes Caregiver confirmed with patient/requestor that no other refills are due, in the near future, with this provider at this time: Yes The last office visit in the department: 01/17/2025 Does the patient have a future office visit with this provider/department: Yes Requested Prescriptions Pending Prescriptions Disp Refills furosemide (LASIX) 20 mg tablet 60 tablet 1 Sig: Take 1 tablet by mouth two times a day. To get her to her appt with cardio Hannah Bravo January 21, 2025 11:48 AM documented in [facility] Telephone encounter Note * Telephone Encounter - Aspen Bell LPN - 01/22/2025 1:46 PM EDT Attempted to contact pt. No answer and vm has not been set up. MC was logged into on 12/18/24. Sent pt a MC msg to contact office. Aspen Bell LPN [place] [address]-08-2025 NotePatient Outreach (FAMPWS) PERNELL RODRIGUEZ ([id number]) 1960 F Date Time Provider Department 01/22/25 HOMER BRADFORD FAMPWS During your visit today, we recorded the following information about you: Allergies As of Date: 01/22/2025 Noted Allergy Reaction PENICILLINS 03/30/2006 4 - Hives TETANUS, DIPHTHERIA TOX ABSORB AD*12/28/2014 7 - Swelling Comments: local reaction ASPIRIN 01/04/2023 16 - Unknown BENZTROPINE 02/12/2014 16 - Unknown DIAZEPAM 02/12/2014 16 - Unknown IMODIUM (LOPERAMIDE) 05/23/2018 14 - Other: See Comments Comments: Chest pain MELLARIL (THIORIDAZINE) 02/12/2014 8 - GI Upset PNEUMOVAX 23 (PNEUMOCOCCAL 23-SHARLA*12/25/2014 5 - Intolerance SULFA (SULFONAMIDE ANTIBIOTICS) 11/24/2015 8 - GI Upset Comments: Causes vomiting and rash TEGRETOL (CARBAMAZEPINE) 02/12/2014 8 - GI Upset Date Reviewed: 01/17/2025 Reviewed by: Aspen Bell LPN - Fully Assessed Visit Diagnosis:Encounter for screening mammogram for breast cancer [Z12.31] Order(s):[facility] SCREENING W YOHANNES [[id number]] Order #: [id number] FUTURE Prescriptions as of 02/22/2025 - aspirin, enteric coated (ASPIRIN, ENTERIC COATED) 81 mg EC tablet Take 81 mg by mouth once daily. - ipratropium-albuterol (DUONEB) 0.5 mg-3 mg(2.5 mg base)/3 mL nebu 3 mL every 6 hours as needed for wheezing/shortness of breath. - vibegron (GEMTESA) 75 mg tablet Take 75 mg by mouth once daily. - omeprazole (PRILOSEC) 40 mg capsule Take 1 capsule by mouth once daily. - furosemide (LASIX) 20 mg tablet Take 1 tablet by mouth two times a day. To get her to her appt with cardio - spironolactone (ALDACTONE) 25 mg tablet Take 1 tablet by mouth once daily. To get her to her appt with cardio - mupirocin (BACTROBAN) 2 % ointment Apply 2 FTUs to affected area three times a day x7 days - midodrine (PROAMATINE) 10 mg tablet Take 10 mg by mouth three times a day. - lovastatin 40 mg tablet TAKE 1 TABLET BY MOUTH DAILY AT BEDTIME. FOR CHOLESTEROL. - LORazepam (ATIVAN) 0.5 mg Take by mouth two times a day as needed. - fesoterodine (TOVIAZ) 4 mg Tb24 extended release tablet Take 4 mg by mouth once daily. - nitroglycerin sublingual (NITROQUICK) 0.4 mg SL tablet Dissolve 1 tablet under the tongue every 5 minutes as needed for chest pain. - MEDICAL SUPPLY Adult Size Pull On XXL/Bariatric needs 6 a day, Dx: N39.46, R15.9 and M62.81 - hyoscyamine SR (LEVBID) 0.375 mg 12 hr tablet Take 1 tablet by mouth two times a day. - MEDICAL SUPPLY Please replace pull up every 1.5-2 hrs while awake and 1-3 times a night to reduce risk of skin break down and secondary infections. #240 a month Dx: N39.46 and R15.9 - traZODone (DESYREL) 100 mg tablet 1 tablet daily at bedtime. Per psych: Dr. Alvarez, not on as of 11/16/2023 - QUEtiapine ER (SEROQUEL XR) 200 mg 24 hr tablet Take 1 tablet by mouth two times a day. Per psych, Dr. Negrete, not on as of 11/16/2023 - citalopram hydrobromide (CELEXA) 10 mg tablet Take 1 tablet by mouth once daily. Per psych, Dr. Negrete, - albuterol HFA (VENTOLIN HFA) 90 mcg/actuation inhaler INHALE 2 PUFFS INSTRUCTED EVERY FOUR HOURS NEEDED[address]. Christopher: Pulm - apixaban (ELIQUIS) 5 mg tab(s) Take 1 tablet by mouth twice daily. Per Cardio, Fish - COMPOUNDED PRESCRIPTION Adult diapers size XL Change diaper up to seven times a day. # 210 diapers With 5 refills Dx: R32 and R15.9 Problem List As Of Date 01/22/2025 Noted Resolved Hives [L50.9] 01/14/2014 Extrapyramidal reaction [G25.9] 01/14/2014 Hypotension [I95.9] 01/14/2014 Diabetic eye exam (HCC) [Z01.00, E11.9] 01/14/2014 Chronic pain [G89.29] 01/14/2014 Diabetic foot (HCC) [E11.8] 01/14/2014 Low back pain [M54.50] 01/14/2014 Mixed hyperlipidemia [E78.2] 01/14/2014 Chest pain [R07.9] 02/14/2014 Lumbosacral neuritis [M54.17] 04/16/2014 Myofascial pain [M79.18] 04/16/2014 Hypokalemia [E87.6] 07/23/2014 ASHD (arteriosclerotic heart disease) [I25.10] 10/25/2014 Physical deconditioning [R53.81] 04/02/2015 Chronic back pain greater than 3 months duratio*04/02/2015 Type 2 diabetes mellitus with stage 3b chronic *04/25/2015 Gastroesophageal reflux disease without esophag*04/25/2015 Chronic obstructive pulmonary disease (HCC) [J4*04/25/2015 History of CVA (cerebrovascular accident) [Z86.*04/25/2015 Bilateral leg edema [R60.0] 04/25/2015 Bipolar affective disorder (HCC) [F31.9] 04/25/2015 Major depressive disorder, recurrent episode, m*04/25/2015 [place] or callus [L84] 11/16/2015 Nodule of left lung [R91.1] 12/17/2015 Well adult exam [Z00.00] 10/27/2016 Colon cancer screening [Z12.11] 10/27/2016 Migraine without aura and without status migrai*04/28/2017 Irritable bowel syndrome with both constipation*04/28/2017 Urinary incontinence [R32] 07/08/2017 11/28/2021 Incontinence of feces [R15.9] 07/08/2017 Encounter for gynecological examination without*05/23/2018 Mu (more content not included)...[facility] Telephone encounter Note* Telephone Encounter - Caterina Salazar, OMARI - 01/21/2025 7:56 PM EDT Called Pt and no answer. Pt did not have voicemail set up. Will need to call back. Caterina Salazar, RN [facility]07-07-2025 Telephone encounter Note* Telephone Encounter - Homer Bradford MD - 01/21/2025 4:40 PM EDT This script was given 12/18/2024 with one refill which would get her till early February. Patient was informed this was a one time script till she got in to see Cardio and needs to do so. She should see if the [facility] can help with this. [facility] Telephone encounter Note* Telephone Encounter - Mary Ann Rodriguez LPN - 01/21/2025 2:11 PM EDT Patient returned call and went over results, notes from Meagan MAY with understanding. [facility]07-07-[facility] Miscellaneous Notes* Telephone Encounter - Mary Ann Rodriguez LPN - 01/21/2025 2:11 PM EDT Patient returned call and went over results, notes from Meagan MAY with understanding. * Telephone Encounter - Jose Jarrell MA - 01/21/2025 11:46 AM EDT Attempted to reach pt but was unable to LM due to VM not being setup yet. Will try calling again later. Jose Jarrell MA * Telephone Encounter - Meagan Yusuf PA-C - 01/21/2025 11:16 AM EDT Let patient know that her labs are okay/stable. Meagan Yusuf PA-C documented [facility] Telephone encounter Note * Telephone Encounter - Hannah Delgadillo - 01/21/2025 11:48 AM EDT Prescription Refill Information The patient has been identified by name and date of : Yes Caregiver verified no other encounters exist for this prescription request: Yes Caregiver confirmed with patient/requestor that no other refills are due, in the near future, with this provider at this time: Yes The last office visit in the department: 01/17/2025 Does the patient have a future office visit with this provider/department: Yes Requested Prescriptions Pending Prescriptions Disp Refills furosemide (LASIX) 20 mg tablet 60 tablet 1 Sig: Take 1 tablet by mouth two times a day. To get her to her appt with cardio Hannah Bravo January 21, 2025 11:48 AM [facility] Work Phone: 1(878) 988-386807-07-2025 Telephone encounter Note* Telephone Encounter - Jose Jarrell MA - 01/21/2025 11:46 AM EDT Attempted to reach pt but was unable to LM due to VM not being setup yet. Will try calling again later. Jose Jarrell MA [facility]07-07-[facility]25 Telephone encounter Note* Telephone Encounter - Meagan Yusuf PA-C - 01/21/2025 11:16 AM EDT Let patient know that her labs are okay/stable. Meagan Yusuf PA-C [facility]07-03-2025 NoteHNO ID: [id number] Author: MEAGAN YUSUF PA-C Service: ? 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 Heat Stroke: - Hospitalized from January 08 to January 11 after passing out while walking to the bank; patient states she was diagnosed with heat stroke. - Reports a previous incident where she experienced chest pain and a blood clot that popped and caused a late stroke. - CT brain was negative. - Urine and blood cultures were negative, but Pernell met criteria for sepsis and was treated with antibiotics. - A1c was 6% during hospitalization. - Has been working on getting her speciality appts scheduled. Homelessness: - Homeless since July; staying with a friend but will move to [facility] around the or . 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 Wound on Left Leg: - Pernell has a wound on the back of the left leg; unaware of its presence until recently. - Ultrasound performed on both legs due to significant swelling. - No appointments scheduled with the wound center. Renal Injury: - Experienced a kidney injury during hospitalization, which improved with fluids. - Has seen Dr. St before but has no current appointment scheduled. - Needs blood tests done before seeing Dr. St. Psychiatric Care: - Psychiatrist is Dr. negrete; has an appointment in February. Cardiology: - Has been trying to get in touch with supervisor electronics assembly Deann Goins NP, but has had difficulty reaching her office. Past medical history, appointments, medications, allergies reviewed. Previous Medical History PAST MEDICAL HISTORY Diagnosis Date ASHD (arteriosclerotic heart disease) 10/25/[address] Goins Bilateral leg edema 04/25/2015 Bipolar affective disorder (HCC) 04/25/[address] Colindres Chest pain 02/14/[address] Jacob in [facility]. Had a normal cardiac CTA in 2009 with no calcium. Chronic back pain greater than 3 months duration 04/02/2015 Chronic insomnia 03/12/2020 Ilya Calderón ([facility]) on melatonin. Chronic obstructive pulmonary disease (HCC) 04/25/2015 Chronic pain 01/14/2014 Constipation 02/12/2014 [place] or callus 11/16/2015 Current use of proton pump inhibitor 10/11/2017 CVA (cerebral infarction) 01/14/2014 Diabetic eye exam ([facility]) 01/14/[address] Sanchez last done 03/02/2019 Diabetic foot ([facility]) 01/14/[address] Martins Extrapyramidal reaction 01/14/2014 Gastroesophageal reflux disease without esophagitis 04/25/2015 History of CVA (cerebrovascular accident) 04/25/[address] Ilya Calderón ([facility]) Hives 01/14/2014 Hypotension 01/14/2014 Sees Ilya Calderón ([facility]) and has her on fludrocortisone Incontinence of feces 07/08/2017 Irritable bowel syndrome with both constipation and diarrhea 04/28/2017 Low back pain 01/14/2014 Low vitamin B12 level 07/16/2022 Lumbosacral neuritis 04/16/2014 Major depressive disorder, recurrent episode, moderate ([facility]) 04/25/2015 On disability Migraine without aura and without status migrainosus, not intractable 04/28/[address] Calderón Mixed hyperlipidemia 01/14/2014 Mixed incontinence urge and stress (male)(female) 07/25/2018 Morbid obesity due to excess calories ([facility]) 10/27/2016 Muscle weakness (generalized) 07/25/2018 Myofascial pain 04/16/2014 Nodule of left lung 12/17/2015 CT 09/2018 still stable, no further CT's needed. Seen on CT of abd/pelv 11/2015. 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 Physical deconditioning 04/02/2015 PMH - PAST MEDICAL HISTORY OF ovarian cysts PMH - PAST MEDICAL HISTORY OF bladder tipped, has incontience PMH - PAST MEDICAL HISTORY OF irregular heart beat Smoker 11/20/2020 Started age 15 at 1.5 PPD Stage 3b chronic kidney disease (HCC) 11/24/2020 Tardive dyskinesia 03/12/2020 Ilya Calderón ([facility]) Type 2 diabetes mellitus with stage 3b chronic kidney disease (HCC) 04/25/2015 Type 2 diabetes mellitus without complication (HCC) 04/25/2015 Urinary incontinence 07/08/2017 Well adult exam 10/27/2016 last done: 06/09/2022 Previous Surgical History PAST SURGICAL HISTORY Procedure Laterality Date *STRESS TEST PC 05/06/2016 WNL 2D ECHO (EXEP) 01/14/2014 EF=65% Trival [place], TI, PI, LA enlarged. CARPAL TUNNEL Bilateral 08/28 and 09/25 COLONOSCOPY FLX DX W/COLLJ SPEC WHEN PFRMD 2011 haroariana baron Colonoscopy, no polyps repeat 10 yrs CRYOCAUTERY OF CERVIX or twice DILATION AND CURETTA (more content not included)...[facility] 01-17-2025 History of Present illness Narrative* Meagan Yusuf PA-C - 01/17/2025 11:26 AM EDT Chief Complaint Patient presents with: Hospital F/U HPI Pernell Rodriguez is a 64 year old female who presents here today for Hospital Discharge Follow up.. Heat Stroke: - Hospitalized from January 08 to January 11 after passing out while walking to the bank; patient states she was diagnosed with heat stroke. - Reports a previous incident where she experienced chest pain and a blood clot that popped and caused a late stroke. - CT brain was negative. - Urine and blood cultures were negative, but Pernell met criteria for sepsis and was treated with antibiotics. - A1c was 6% during hospitalization. - Has been working on getting her speciality appts scheduled. Homelessness: - Homeless since July; staying with a friend but will move to [facility] [employer] around the or . 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 Wound on Left Leg: - Pernell has a wound on the back of the left leg; unaware of its presence until recently. - Ultrasound performed on both legs due to significant swelling. - No appointments scheduled with the wound center. Renal Injury: - Experienced a kidney injury during hospitalization, which improved with fluids. - Has seen Dr. St before but has no current appointment scheduled. - Needs blood tests done before seeing Dr. St. Psychiatric Care: - Psychiatrist is Dr. negrete; has an appointment in February. Cardiology: - Has been trying to get in touch with supervisor electronics assembly Deann Goins NP, but has had difficulty reaching her office. Past medical history, appointments, medications, allergies reviewed. Previous Medical History PAST MEDICAL HISTORY Diagnosis Date ASHD (arteriosclerotic heart disease) 10/25/[address] Goins Bilateral leg edema 04/25/2015 Bipolar affective disorder (HCC) 04/25/[address] Colindres Chest pain 02/14/[address] Jacob in [facility]. Had a normal cardiac CTA in 2009 with no calcium. Chronic back pain greater than 3 months duration 04/02/2015 Chronic insomnia 03/12/2020 Ilya Calderón ([facility]) on melatonin. Chronic obstructive pulmonary disease (HCC) 04/25/2015 Chronic pain 01/14/2014 Constipation 02/12/2014 [place] or callus 11/16/2015 Current use of proton pump inhibitor 10/11/2017 CVA (cerebral infarction) 01/14/2014 Diabetic eye exam (HCC) 01/14/[address] Sanchez last done 03/02/2019 Diabetic foot ([facility]) 01/14/[address] Martins Extrapyramidal reaction 01/14/2014 Gastroesophageal reflux disease without esophagitis 04/25/2015 History of CVA (cerebrovascular accident) 04/25/[address] Ilya Calderón ([facility]) Hives 01/14/2014 Hypotension 01/14/2014 Sees Ilya Calderón ([facility]) and has her on fludrocortisone Incontinence of feces 07/08/2017 Irritable bowel syndrome with both constipation and diarrhea 04/28/2017 Low back pain 01/14/2014 Low vitamin B12 level 07/16/2022 Lumbosacral neuritis 04/16/2014 Major depressive disorder, recurrent episode, moderate (HCC) 04/25/2015 On disability Migraine without aura and without status migrainosus, not intractable 04/28/[address] Calderón Mixed hyperlipidemia 01/14/2014 Mixed incontinence urge and stress (male)(female) 07/25/2018 Morbid obesity due to excess calories (HCC) 10/27/2016 Muscle weakness (generalized) 07/25/2018 Myofascial pain 04/16/2014 Nodule of left lung 12/17/2015 CT 09/2018 still stable, no further CT's needed. Seen on CT of abd/pelv 11/2015. 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 Physical deconditioning 04/02/2015 PMH - PAST MEDICAL HISTORY OF ovarian cysts PMH - PAST MEDICAL HISTORY OF bladder tipped, has incontience PMH - PAST MEDICAL HISTORY OF irregular heart beat Smoker 11/20/2020 Started age 15 at 1.5 PPD Stage 3b chronic kidney disease (HCC) 11/24/2020 Tardive dyskinesia 03/12/2020 Ilya Calderón ([facility]) Type 2 diabetes mellitus with stage 3b chronic kidney disease (HCC) 04/25/2015 Type 2 diabetes mellitus without complication (HCC) 04/25/2015 Urinary incontinence 07/08/2017 Well adult exam 10/27/2016 last done: 06/09/2022 Previous Surgical History PAST SURGICAL HISTORY Procedure Laterality Date *STRESS TEST PC 05/06/2016 WNL 2D ECHO (EXEP) 01/14/2014 EF=65% Trival [place], TI, PI, LA enlarged. CARPAL TUNNEL Bilateral 08/28 and 09/25 COLONOSCOPY FLX DX W/COLLJ SPEC WHEN PFRMD 2011 haroariana baron Colonoscopy, no polyps repeat 10 yrs CRYOCAUTERY OF CERVIX or twice DILATION & CURETTAGE DX&/THER NONOBSTETRIC Dilation & curettage ESOPHAGOGASTRODUODENOSCOPY TRANSORAL DIAGNOSTIC EGD LIG/TRNSXJ FLP TUBE ABDL/VAG APPR UNI/BI Tubal ligation PAST SURGICAL HISTORY OF 07/2015 had left medial elbow sugery but can't explain for what. PAST SURGICAL HISTORY OF Right 2012 repair rotator cuff and bone spurs PAST SURGICAL HISTORY OF 09/09/2020 bladder interstim for overactive bladder per Dr. Alba PAST SURGICAL HISTORY OF cholecystectomy PT ED UROLOGY 08/2020 IPG Family History FAMILY HISTORY Problem Relation Age of Onset Hypertension Mother Diabetes Mother other (hysterectomy) Mother fibroids other (hysterectomy) Maternal Grandmother fibroids Heart Son irregular heart beat Cancer Paternal Aunt No Ocular Disease No Family History Patient Allergies ALLERGIES Allergen Reactions Penicillins Hives Tetanus, Diphtheria* Swelling local reaction Aspirin Unknown Benztropine Unknown Diazepam Unknown Imodium [Loperamide] Other: See Comments Chest pain Mellaril [Thioridaz* GI Upset Pneumovax 23 [Pneum* Intolerance Sulfa (Sulfonamide * GI Upset Causes vomiting and rash Tegretol [Carbamaze* GI Upset Current Medications Current Outpatient Medications on File Prior to Visit Medication Sig midodrine (PROAMATINE) 10 mg tablet Take 10 mg by mouth three times a day. LORazepam (ATIVAN) 0.5 mg Take by mouth two times a day as needed. traZODone (DESYREL) 100 mg tablet 1 tablet daily at bedtime. Per psych: Dr. Alvarez, not on as of 11/16/2023 citalopram hydrobromide (CELEXA) 10 mg tablet Take 1 tablet by mouth once daily. Per psych, Dr. Negrete, lovastatin 40 mg tablet TAKE 1 TABLET BY MOUTH DAILY AT BEDTIME. FOR CHOLESTEROL. fesoterodine (TOVIAZ) 4 mg Tb24 extended release tablet Take 4 mg by mouth once daily. spironolactone (ALDACTONE) 25 mg tablet Take 1 tablet by mouth once daily. To get her to her appt with cardio furosemide (LASIX) 20 mg tablet Take 1 tablet by mouth two times a day. To get her to her appt withcardio nitroglycerin sublingual (NITROQUICK) 0.4 mg SL tablet Dissolve 1 tablet under the tongue every 5 minutes as needed for chest pain. MEDICAL SUPPLY Adult Size Pull On XXL/Bariatric needs 6 a day, Dx: N39.46, R15.9 and M62.81 omeprazole (PRILOSEC) 40 mg capsule Take 1 capsule by mouth once daily. hyoscyamine SR (LEVBID) 0.375 mg 12 hr tablet Take 1 tablet by mouth two times a day. MEDICAL SUPPLY Please replace pull up every 1.5-2 hrs while awake and 1-3 times a night to reduce risk of skin break down and secondary infections. #240 a month Dx: N39.46 and R15.9 ipratropium-albuterol (DUONEB) 0.5 mg-3 mg(2.5 mg base)/3 mL nebu Inhale 3 mL as instructed every 3hours as needed for wheezing/shortness of breath. For SOB related to ACUTE RESPIRATORY FAILURE WITHHYPOXIA (J96.01) while awake, Dr. Dallin Christopher: Pulm. not on as of 11/16/2023 (Patient not taking: Reported on 12/18/2024) rimegepant (NURTEC ODT) 75 mg disintegrating tablet Take 1 tablet by mouth once daily as needed. Per Neuro, not on as of 11/16/2023 (Patient not taking: Reported on 12/18/2024) cyanocobalamin (VITAMIN B-12) 500 mcg tablet Take 1 tablet by mouth once daily. not on as of 11/16/2023 (Patient not taking: Reported on 12/18/2024) amantadine HCl (SYMMETREL) 100 mg capsule Take 1 capsule by mouth two times a day. Per Neuro, Dr. Calderón, not on as of 11/16/2023 (Patient not taking: Reported on 12/18/2024) fludrocortisone (FLORINEF) 0.1 mg tablet Take 1 tablet by mouth once daily. Per Neuro, Dr. Calderón, not on as of 11/16/2023 (Patient not taking: Reported on 12/18/2024) QUEtiapine ER (SEROQUEL XR) 200 mg 24 hr tablet Take 1 tablet by mouth two times a day. Per psych, Dr. Negrete, not on as of 11/16/2023 albuterol HFA (VENTOLIN HFA) 90 mcg/actuation inhaler INHALE 2 PUFFS INSTRUCTED EVERY FOUR HOURSAS NEEDED. Dr. Christopher: Pulm melatonin (MELATIN ORAL) Take by mouth as directed. (Patient not taking: Reported on 12/18/2024) apixaban (ELIQUIS) 5 mg tab(s) Take 1 tablet by mouth twice daily. Per Cardio, Fish COMPOUNDED PRESCRIPTION Adult diapers size XL Change diaper up to seven times a day. # 210 diapers With 5 refills Dx: R32 and R15.9 omega-3 fatty acids 1,000 mg cap Take 2 capsules by mouth once daily. (Patient not taking: Reportedon 12/18/2024) No current facility-administered medications on file prior to visit. Social History Social History Tobacco Use Smoking status: Every Day Current packs/day: 2.00 Average packs/day: 2.0 packs/day for 50.0 years (100.0 ttl pk-yrs) Types: Cigarettes Smokeless tobacco: Never Tobacco comments: 1.5 to 2 packs/day Vaping Use Vaping status: Never Used Substance Use Topics Alcohol use: No Drug use: No Review of Symptoms REVIEW OF SYSTEMS SEE HPI EXAM: BP 120/68 (BP Site: Right Arm, BP Position: Sitting, BP Cuff Size: Large Adult) Pulse 79 Temp 37.5 C (99.5 F) Resp 18 Wt 111.6 kg (246 lb) LMP 02/22/2006 SpO2 93% BMI 43.86 kg/m General Appearance: Well appearing, alert, in no acute distress, well-hydrated, well nourished. Lungs: Lungs clear to auscultation. No wheezing, rhonchi, rales.. Heart: RRR without murmur, gallop, or rubs. No ectopy. Extremities: blistered wound noted on left lower lateral leg with tenderness. No significant erythema. No drainage. . Health Maintenance List Anxiety Screening Never done Shingrix Vaccine(1 of 2) Never done Pneumococcal Vaccine: 50+(2 of 2 - PCV) due on 07/18/2012 RSV Vaccine(1 - Risk 60-74 years 1-dose series) Never done Cervical Cancer Screening due on 05/22/2023 Dilated Retinal Exam due on 01/05/2024 Covid-19 Vaccine( season) Never done Urine Albumin:Creatinine Ratio due on 09/26/2024 Mammogram Screening due on 12/21/2024 Colorectal Cancer Screening due on 03/18/2025 Diabetic Foot Exam due on 03/22/2025 HbA1C due on 06/19/2025 LDL Cholesterol due on 12/18/2025 Serum Creatinine due on 12/18/2025 Hemoglobin/Hematocrit due on 12/18/2025 Annual PCP Team Chronic Disease Visit due on 01/17/2026 Hepatitis C Screening Completed HIV Screening Completed DTaP,Tdap,Td Vaccine Discontinued Lung Cancer Screening Discontinued Influenza Vaccine Discontinued Data reviewed See hpi Assessment and Plan 1. Sepsis, due to unspecified organism, unspecified whether acute organ dysfunction present (HCC) (A41.9) - Recent hospitalization from January 08 to January 11 for sepsis; urine and blood cultures were negative. - Treated with antibiotics during hospitalization; completed antibiotic course. - CT brain was negative. 2. ASHD (arteriosclerotic heart disease) (I25.10) - Follow-up with supervisor electronics assembly Dr. Goins is pending; patient has been unable to reach the office. - Provided patient with the supervisor electronics assembly's office phone number. 3. Chronic obstructive pulmonary disease, unspecified COPD type (HCC) (J44.9) - Discussed issues with current nebulizer setup; patient prefers a nebulizer with a mask. - Will coordinate with respiratory therapy to provide appropriate nebulizer equipment. 4. Wound of left lower extremity, subsequent encounter (S84.342D) - Noted wound on the left lower extremity; patient reports soreness. - Ultrasound of both legs performed during hospitalization due to significant swelling. - Referred to wound management for further evaluation and treatment. 5. Type 2 diabetes mellitus with stage 3b chronic kidney disease, without long- term current use of insulin (HCC) (E11.22) 6. Stage 3b chronic kidney disease (HCC) (N18.32) - Recent hospitalization included acute kidney injury, which improved with fluid management. - A1c is 6%. - Ordered lab work to monitor kidney function and ensure continued improvement. - Follow-up with edge runner Dr. Diaz is pending; patient to complete blood tests prior to the appointment. 7. Paroxysmal atrial fibrillation (HCC) (I48.0) - No specific details discussed during the visit. 8. Mixed hyperlipidemia (E78.2) - No specific details discussed during the visit. Meagan Yusuf PA-C I spent a total of 33 minutes on the date of the service which included preparing to see the patient, [id number] patient care, completing clinical documentation, obtaining and/or reviewing separately obtained history, performing a medically appropriate examination, counseling and educating the pat ient/family/caregiver, ordering medications, tests, or procedures, and communicating results to thepatient/family/caregiver. Recording using Zapa software for draft documentation of the visit was discussed with the patient/authorized school admissions representative; all questions welcomed and answered. Patient/authorized school admissions representative agreed to proceed documented [facility]06[facility] Telephone encounter Note * Telephone Encounter - Jose Jarrell MA - 01/11/2025 3:53 PM EDT Provider signed and faxed back to number below. Jose Jarrell MA [facility]06-27-2025 Miscellaneous Notes* Telephone Encounter - Jose Jarrell MA - 01/11/2025 3:53 PM EDT Provider signed and faxed back to number below. Jose Jarrell MA * Telephone Encounter - Jose Jarrell MA - 01/11/2025 3:46 PM EDT Type of form: Medical Necessity - received from Home Care Delivery Form received via fax When form is completed, Fax form to [phone] Form has been forwarded to Physician Desk: Dr. Sanchez Jarrell MA documented in this encounterMer[facility]06-27-2025 Telephone encounter Note * Telephone Encounter - Jose Jarrell MA - 01/11/2025 3:46 PM EDT Type of form: Medical Necessity - received from Home Care Delivery Form received via fax When form is completed, Fax form to [phone] Form has been forwarded to Physician Desk: Dr. Sanchez Jarrell MA [facility]06-27-2025 Discharge summary Author Peter Herbert [facility] Note Date/Time January 11, 2025 12:0 5pm [facility] Medical Records Department [address] [place] [address] Instructions for Home/Discharge Instructions 01/11/25 1016 MR#: [id number] Acct: [id number] Name: PERNELL RODRIGUEZ Rep #:[id number] : 1960 64 From: Peter Arthur PCP: Dr. Homer Bradford MD Status:ADM IN Discharge Instructions DC O2, CPAP, BIPAP needs Home O2 Discharge instructions: No Follow Up Care Test Results: Test results from this visit will be discussed in further detail at your follow- up appointment, if applicable. Discharge Plan Admission Admit Date/Time: 01/08/25 19:23 Attending Provider: Peter Herbert Primary Care Provider: Homer Bradford Consulting Providers: Lauren Vela; Luis Antonio Navarro Discharge Orders/Prescriptions Prescriptions: New midodrine 10 mg tablet 10 mg PO TIDCM 30 Days Qty: 90 0RF levofloxacin 500 mg tablet 500 mg PO DAILY 1 Days Qty: 1 0RF dextromethorphan-guaifenesin [Mucinex DM] 60-1,200 mg tablet extended release 12 hr 1 tab PO Q12H 7 Days Qty: 14 0RF Continued albuterol sulfate 90 mcg/actuation HFA aerosol inhaler 2 puff inhalation Q6H PRN (Reason: shortness of breath or wheezing) Qty: 6.7 0RF citalopram 10 mg Tablet 10 mg PO DAILY Qty: 30 0RF Eliquis 5 mg Tablet 5 mg PO Q12 Qty: 60 0RF lovastatin 40 mg tablet 20 mg PO QHS omeprazole 40 mg capsule,delayed release(DR/EC) 40 mg PO DAILY lorazepam 0.5 mg tablet 0.5 mg PO Q12H PRN (Reason: anxiety) aspirin 81 mg capsule 81 mg PO DAILY furosemide 20 mg tablet 20 mg PO BID ipratropium-albuterol 0.5 mg-3 mg(2.5 mg base)/3 mL solution for nebulization 3 ml inhalation Q20M PRN (Reason: shortness of breath) 30 Days Qty: 90 0RF Rx Instructions: for 3 doses Held quetiapine 100 mg Tablet 200 mg PO BID Qty: 120 0RF Hold Instructions: Hold while taking Levaquin only for tomorrow trazodone 100 mg Tablet 200 mg PO QHS Qty: 60 0RF Hold Instructions: Hold while taking Levaquin tomorrow. Referrals / Follow Up: Homer Bradford MD [Primary Care Provider] - 01/17/25 11:40 am Jovana Chino MD [Non-Staff] - 02/26/25 12:00 pm ([facility]([phone]) will pick you up at 11-11:30, and will pick you up from [facility] at1pm after the appt.) Dallin Christopher DO [Med Staff - Active Staff] - Within 2 Weeks Disposition Disposition (needs filled in before D/C Order can be placed): Home, Self Care 01/11/25 1205<Electronically signed by Peter Herbert MD>Peter Herbert MD CC: Dr. Luis Antonio Navarro DO; Dr. Lauren Vela MD; Dr. Homer Bradford MD~ Signed [facility] Work Phone: 1(427) 842-660706-27-2025 [facility]06-26-2025 Progress note Author [facility] Note Date/Time January 10, 2025 8:31 am [facility] Medical Records Department [address] [place] [address] Progress Note - Hospitalist 01/10/25 0731 MR#: [id number] Acct: [id number] Name: PHILLIPPERNELL CHEKO Rep #:[id number] : 1960 64 From: Peter Arthur PCP: Dr. Homer Bradford MD Status:ADM IN Location: ICU ICU09-1 Reason for Visit Reason for Visit: Diagnoses Sepsis, unspecified organism (01/08/25) Urinary tract infection, site not specified (01/08/25) Objective Data Objective Data Vital Signs: Vital Signs Temp Pulse Resp BP Pulse Ox O2 Del Method O2 Flow Rate 97.6 F L 79 17 111/79 95 Room Air 2 01/10/25 06:00 01/10/25 07:14 01/10/25 07:14 01/10/25 06:00 01/10/25 07:14 01/10/25 07:14 01/09/25 17:00 Oxygen Flow Rate (L/min) 2 Oxygen Delivery Method Room Air Weight: 249 lb Body Mass Index (BMI) 45.8 Intake & Output: Intake and Output for Last 24 Hours 01/08/25 01/09/25 01/10/25 23:59 23:59 23:59 Intake Total 3806.44 / 3809.27 3109.18 / 3109.18 0 / 0 Output Total 2625 / 2625 Balance 3806.44 / 3009.27 484.18 / 484.18 0 / 0 Lab / Micro Data 01/10/25 05:30 01/10/25 05:30 Labs: Laboratory Results - last 24 hr 01/09/25 08:25: POC Glucose 110 H 01/09/25 12:13: POC Glucose 115 H 01/09/25 16:22: POC Glucose 96 01/09/25 20:59: POC Glucose 96 01/10/25 05:30: WBC 9.3, RBC 3.98 L, Hgb 12.3, Hct 37.8, MCV 95.0, MCH 30.9, MCHC 32.5, RDW Std Deviation 48.2 H, RDW Coeff of Robert 13.7, Plt Count 216, MPV 10.4, Sodium 144, Potassium 3.5, Chloride 112 H, Carbon Dioxide 19.9 L, Anion Gap 12, BUN 12, Creatinine 1.25 H, Estim Creat Clear Calc 55.62, Est GFR (MDRD) Non-Af 49 L, BUN/Creatinine Ratio 9.7 L, Glucose 92, Calcium 8.9 01/10/25 06:49: POC Glucose 90 Radiography Diagnostic Testing: Radiology Impression Renal Ultrasound 01/09/25 08:18 IMPRESSION: Small nonobstructive bilateral intrarenal calculi. Reading Location: [id number] Physical Exam Narrative Seen and examined. Patient was admitted with confusion and suspicion for sepsis due to UTI. History of recurrent UTI. This time she denies new burning micturition or acuteLUTS. States she has mild abrasion of the bellybutton due to diaper Physical exam General: Alert, Oriented x3, Cooperative. BMI 45.5 kg/m? HEENT: Atraumatic, PERRLA, EOMI, Normocephalic. Oral: No Gingival or Mucosal Lesions/ Ulcerations Neck: Supple, No JVD, Negative Carotid Bruits Chest wall/Lungs: Air entry diminished in bilateral lung bases. No crepitation/rhonchi Cardiovascular: Regular rate and rhythm, Normal S1,S2, No M/G/R Abdomen: Bowel Sounds Present, Soft, Non Tender, Non-Distended : Urine output 2625 mL no renal angle tenderness. No suprapubic tenderness. Extremities: No edema, Capillary Refill Less than 3 Seconds Skin: Small superficial left leg wound. Left leg more swollen than right, chronic as per Musculoskeletal: No Tenderness to Palpation of Joints or Extremities. ROM mild restriction at his Neurological: Cranial nerves II-XII grossly intact, DTR 2+/4. No acute focal neurological deficit. Psych/Mental Status: Flat affect Assessment & Plan Assessment/Plan (1) Sepsis: PLAN: Plan Patient is a 64-year-old female who presented to [facility] ED on 01/08/2025 with altered mentation. 1. Sepsis suspected secondary to UTI ? Legal Officer following. Met sepsis criteria on admit with tachycardia, tachypnea, hypotension, lactic acidosis, encephalopathy and renal insufficiency with suspected urinary source. Hypotension was fluid responsive, did not require pressors on admit. UA with 100 leukocyte esterase, negative nitrates, 25-50 WBCs, 2+ bacteria. Renal ultrasound with small nonobstructing stones, otherwise normal. Chest x-ray unremarkable. Urine culture and blood cultures pending. Notably urine culture in October grew Klebsiella sensitive to everythingbut ampicillin. Continue treatment with IV Levaquin. Continue to monitor closely. 01/10: Blood and urine cultures are pending. Previous urine culture on 11/12 was negative. Laboratory Results 01/09/25 08:25: POC Glucose 110 H 01/09/25 12:13: POC Glucose 115 H 01/09/25 16:22: POC Glucose 96 01/09/25 20:59: POC Glucose 96 01/10/25 05:30: WBC 9.3, RBC 3.98 L, Hgb 12.3, Hct 37.8, MCV 95.0, MCH 30.9, MCHC 32.5, RDW Std Deviation 48.2 H, RDW Coeff of Robert 13.7, Plt Count 216, MPV 10.4, Sodium 144, Potassium 3.5, Chloride 112 H, Carbon Dioxide 19.9 L, Anion Gap 12, BUN 12, Creatinine 1.25 H, Estim Creat Clear Calc 55.62, Est GFR (MDRD) Non-Af 49 L, BUN/Creatinine Ratio 9.7 L, Glucose 92, Calcium 8.9 01/10/25 06:49: POC Glucose 90 2. Acute metabolic encephalopathy, improving ? Suspected secondary to sepsis as above. CT brain negative on admit. Much improved on hospital day 2, fatigued but alert and oriented x 3. Continue treatment as above. Avoid sedating medications as able. 01/10: Metabolic encephalopathy resolved. 3. STEVEN on CKD stage IIIb, resolved ? Creatinine 1.8 on admit, baseline around 1.3. Resolved back to baseline on hospital day 2 after IV fluid resuscitation. 01/10: BUN/creatinine 12/1.25. AG 12. Bicarb 20. Creatinine back on the baseline. STEVEN resolved 4. Acute on chronic debility, poor social situation with homelessness ? PT/OT/case management consulted. Patient has reportedly been staying with a friend in [place] recently and has been applying for housing. Appreciate therapy and case management assistance. 5. COPD/asthma with acute hypoxia ? Patient requiring 2 L nasal cannula on admit to maintain appropriate oxygen saturations. Chest x-ray on admit unremarkable. Suspect patient may be close to her baseline. Continue home inhalers and wean supplemental oxygen as able. Chronic medical conditions: ? Class III obesity: BMI 45 on admit. Complicates hospital course, care and prognosis. ? Paroxysmal A-fib, hypertension, hyperlipidemia: Continue home Eliquis, aspirinand statin. Holding home Lasix for now given sepsis as above. ? Type 2 diabetes mellitus: A1c 6.0% on admit. Not on home indication. Will treat with sliding scale insulin with meals while inpatient, adjust as needed. ? Tobacco abuse: NRT available per patient request. Discussed cessation on discharge. ? Anxiety/depression/bipolar disorder: Continue home citalopram, Seroquel, Ativan twice daily as needed and trazodone at night as needed. ? GERD: Continue home PPI. DVT prophylaxis: Not indicated, on Eliquis CODE STATUS: Full code, verified Charges/Coding Visit Charges Inpatient E&M: 70945 Subs Hosp L2 01/10/25 0827 <Electronically signed by Peter Herbert MD> Cosigner Signature (if applicable): CC: ~ Signed ADDENDUM by Dr. Peter Herbert MD on 01/10/25 at 0831 Addendum Small wound in the left leg. Venous duplex ordered. Wound nurse consulted 01/10/25 08<Electronically signed by Peter Herbert MD> Cosigner Signature (if applicable): cc: ~* Signed [facility] Work Phone: 1(320) 458-640606-26-2025 Progress note Author Dallin Christopher [facility] Note Date/Time January 10, 2025 8:16 am [facility] Medical Records Department [address] [place] [address] Progress Note - Legal Officer 01/10/25808 MR#: [id number] Acct: [id number] Name: PERNELL RODRIGUEZ CHEKO Rep #:[id number] : 1960 64 From: Dallin Christopher DO PCP: Dr. Homer Bradford MD Status:ADM IN Location: ICU ICU09-1 Assessment & Plan Assessment/Plan (1) Sepsis: PLAN: Plan RECOMMENDATIONS: 1. Continue antimicrobials, pending finalized culture results. 2. Continue scheduled bronchodilators. 3. Supplemental oxygen, if needed, to maintain saturations at or above 90%. 4. Continue Eliquis per home regimen. 5. Encourage incentive spirometer use and mobilize patient as tolerated. 6. Will sign off at this time from a critical care perspective. Please call with any additional questions. IMPRESSIONS: 1. Sepsis Clinical concern for underlying urinary tract source of infection. Although thepatient was initially hypotensive, she did respond to IV fluid resuscitation without the need for vasopressor support. Recommend continuing antimicrobials, pending finalized culture results. The patient is otherwise clinically stable. 2. Metabolic encephalopathy Resolved. Likely related to presenting sepsis. The patient is mentating appropriately. No further workup is indicated. 3. History of COPD/chronic tobacco dependency/history of homelessness/paroxysmal atrial fibrillation/diabetes mellitus Complicates care, management, recovery and prognosis. Continue aerosol treatments as ordered. Encourage incentive spirometer use and mobilize patient as tolerated. This note was generated with Dragon dictation software. It may contain incorrectwords, spelling, and punctuation that were not noted in checking the note beforesigning. Subjective Subjective The patient was seen and examined at the bedside this morning. Events from the last 24 hours have been reviewed. The patient is currently afebrile, hemodynamically stable and maintaining appropriate oxygen saturations on room air. White blood cell count is normal. Hemoglobin and platelet count are stable. Creatinine has improved to 1.25. Objective Data Objective Data The patient's most recent lab work, culture data and imaging studies have all been personally reviewed. Blood and urine cultures are pending. Vital Signs: Vital Signs Temp Pulse Resp BP Pulse Ox O2 Del Method O2 Flow Rate 97.6 F L 79 17 111/79 95 Room Air 2 01/10/25 06:00 01/10/25 07:14 01/10/25 07:14 01/10/25 06:00 01/10/25 07:14 01/10/25 07:14 01/09/25 17:00 Oxygen Flow Rate (L/min) 2 Oxygen Delivery Method Room Air Weight: 249 lb Body Mass Index (BMI) 45.8 Intake & Output: Intake and Output for Last 24 Hours 01/08/25 01/09/25 01/10/25 23:59 23:59 23:59 Intake Total 3806.44 / 3809.27 3109.18 / 3109.18 0 / 0 Output Total 2625 / 2625 Balance 3806.44 / 3009.27 484.18 / 484.18 0 / 0 Lab / Micro Data Attestation: I reviewed the patient's lab results. 01/10/25 05:30 01/10/25 05:30 Labs: Laboratory Results - last 24 hr 01/09/25 08:25: POC Glucose 110 H 01/09/25 12:13: POC Glucose 115 H 01/09/25 16:22: POC Glucose 96 01/09/25 20:59: POC Glucose 96 01/10/25 05:30: WBC 9.3, RBC 3.98 L, Hgb 12.3, Hct 37.8, MCV 95.0, MCH 30.9, MCHC 32.5, RDW Std Deviation 48.2 H, RDW Coeff of Robert 13.7, Plt Count 216, MPV 10.4, Sodium 144, Potassium 3.5, Chloride 112 H, Carbon Dioxide 19.9 L, Anion Gap 12, BUN 12, Creatinine 1.25 H, Estim Creat Clear Calc 55.62, Est GFR (MDRD) Non-Af 49 L, BUN/Creatinine Ratio 9.7 L, Glucose 92, Calcium 8.9 01/10/25 06:49: POC Glucose 90 Radiography Diagnostic Testing: Radiology Impression Renal Ultrasound 01/09/25 08:18 IMPRESSION: Small nonobstructive bilateral intrarenal calculi. Reading Location: [facility] Physical Exam Const alert, oriented x3 and no apparent distress Constitutional Narrative: Sitting in bedside recliner receiving aerosol treatment. General Appearance: cooperative HEENT normocephalic, head/scalp atraumatic and moist oral mucous membranes Eyes PERRL, EOMs intact bilaterally and conjunctivae normal Neck supple General: trachea midline Chest inspection of chest normal Resp normal respiratory effort Auscultation: diminished lung sounds; Negative for rales, rhonchi or wheezes Cardio regular rate and regular rhythm GI normal to inspection, nondistended, normoactive bowel sounds Extremity no clubbing, cyanosis or edema Skin no rashes or lesions noted Neuro CN's II-XII intact bilaterally, moves all extremities and no focal motor deficits Psych cooperative and affect normal Charges/Coding Visit Charges Inpatient E&M: 92937 Subs Hosp L2 01/10/25 0816 <Electronically signed by Dallin Christopher DO> Cosigner Signature (if applicable): CC: ~ Signed [facility] Work Phone: 1(746) 734-816806-25-2025 Progress note Author Luis Antonio Navarro [facility] Note Date/Time January 09, 2025 5:22 pm [facility] Medical Records Department [address] [address] Progress Note - Hospitalist 01/09/25 1209 MR#: [id number] Acct: [id number] Name: PERNELL RODRIGUEZ CHEKO Rep #:[id number] : 1960 64 From: Luis Antonio covarrubias DO PCP: Dr. Homer Bradford MD Status:ADM IN Location: ICU ICU09- Reason for Visit Reason for Visit: Diagnoses Sepsis, unspecified organism (01/08/25) Urinary tract infection, site not specified (01/08/25) Subjective Subjective Saw patient at bedside this morning. Patient was fatigued appearing but was alert and oriented x 3 and answering questions with short appropriate responses. She denied any acute pain or discomfort currently. Was able to tell me that she was feeling well a few days ago but progressively felt more weak and tired over the past day or so. She denies any UTI symptoms at this point. No other acute concerns currently. Objective Data Objective Data Vital Signs: Vital Signs Temp Pulse Resp BP Pulse Ox O2 Del Method O2 Flow Rate 98.5 F 83 13 99/55 L 94 Nasal Cannula 2 01/09/25 11:00 01/09/25 11:00 01/09/25 11:00 01/09/25 11:00 01/09/25 11:00 01/09/25 11:00 01/09/25 11:00 Oxygen Flow Rate (L/min) 2 Oxygen Delivery Method Nasal Cannula Weight: 113.6 kg Body Mass Index (BMI) 45.8 Intake & Output: Intake and Output for Last 24 Hours 01/07/25 01/08/25 01/09/25 23:59 23:59 23:59 Intake Total 3806.44 / 3809.27 1959.18 / 1959.18 Output Total 1800 / 1800 Balance 3806.44 / 3009.27 159.18 / 159.18 Lab / Micro Data 01/09/25 04:25 01/09/25 Unknown Labs: Laboratory Results - last 24 hr 01/08/25 16:41: WBC 9.8, RBC 4.42, Hgb 13.5, Hct 41.1, MCV 93.0, MCH 30.5, MCHC 32.8, RDW Std Deviation 46.9 H, RDW Coeff of Robert 13.7, Plt Count 245, MPV 10.5, Immature Gran % (Auto) 0.100, Neut % (Auto) 76.0 H, Lymph % (Auto) 15.8 L, Price % (Auto) 6.6, Eos % (Auto) 1.3, Baso % (Auto) 0.2, Absolute Neuts (auto) 7.4, Absolute Lymphs (auto) 1.55, Nucleated RBC % 0, PT 14.3, INR 1.1, APTT 27.1, Sodium 140, Potassium 3.4, Chloride 105, Carbon Dioxide 18.9 L, Anion Gap 16 H, BUN 17, Creatinine 1.82 H, Estim Creat Clear Calc 38.69 L, Est GFR (MDRD) Non-Af31 L, BUN/Creatinine Ratio 9.2 L, Glucose 138 H, Lactic Acid 3.9 H*, Calcium 8.7, Total Bilirubin 0.39, AST 18, ALT 8, Alkaline Phosphatase 77, Total Protein6.4, Albumin 3.7, Globulin 2.7, Albumin/Globulin Ratio 1.4, Lipase 22, Urine Color Yellow, Urine Clarity Sl. Cloudy, Urine pH 6.0, Ur Specific Boutte 1.020,Urine Protein 30 H, Urine Glucose (UA) Normal, Urine Ketones Negative, Urine Occult Blood 25 H, Urine Nitrite Negative, Urine Bilirubin 1 H, Urine Urobilinogen 1 H, Ur Leukocyte Esterase 100 H, Urine RBC 0-5 SEEN, Urine WBC 25-50 SEEN, Ur Squamous Epith Cells 5-10 SEEN, Ur Transition Epith Cell 0-5 SEEN, Urine Bacteria 2+, Urine Mucus 0 SEEN, Urine Opiates Screen NEGATIVE, U Buprenorphine Qual NEGATIVE, Ur Oxycodone Screen NEGATIVE, Urine Methadone Screen NEGATIVE, Urine Fentanyl Screen NEGATIVE, Ur Barbiturates Screen NEGATIVE, Ur Phencyclidine Scrn NEGATIVE, Ur Amphetamines Screen NEGATIVE, U Benzodiazepines Scrn PRESUMPTIVE POSITIVE, Urine Cocaine Screen NEGATIVE, U Cannabinoids Screen NEGATIVE, Ethyl Alcohol < 10.1 01/08/25 21:20: Lactic Acid < 1.0 01/08/25 23:40: POC Glucose 108 H 01/09/25 04:25: WBC 10.6, RBC 4.21, Hgb 12.9, Hct 39.9, MCV 94.8, MCH 30.6, MCHC32.3, RDW Std Deviation 48.2 H, RDW Coeff of Robert 13.9, Plt Count 223, MPV 10.3, Immature Gran % (Auto) 0.200, Neut % (Auto) 63.5, Lymph % (Auto) 25.4, Price % (Auto) 9.5, Eos % (Auto) 1.2, Baso % (Auto) 0.2, Absolute Neuts (auto) 6.7, Absolute Lymphs (auto) 2.69, Nucleated RBC % 0, Hemoglobin A1c 6.0 H 01/09/25 08:25: POC Glucose 110 H 01/09/25 : Sodium 146 H, Potassium 3.6, Chloride 114 H, Carbon Dioxide 19.4 L, Anion Gap 13, BUN 13, Creatinine 1.36 H, Estim Creat Clear Calc 51.12, Est GFR (MDRD) Non-Af 44 L, BUN/Creatinine Ratio 9.3 L, Glucose 101 H, Calcium 8.2, Total Bilirubin 0.41, AST 32, ALT 9, Alkaline Phosphatase 69, Total Protein 5.8 L, Albumin 3.2 L, Globulin 2.5, Albumin/Globulin Ratio 1.3 ABG Data ABG results: ABG 01/08/25 16:58 Specimen Type ART Sample Site R BRACHIAL pH 7.46 H Bicarbonate Actual 21.1 L Total CO2 22 Base Excess -3 L O2 Saturation 91 L ABG pCO2 29.6 L ABG pO2 55 L Liter Flow 3.0 Radiography Diagnostic Testing: Radiology Impression Brain CT 01/08/25 16:50 IMPRESSION: Slightly limited exam, without evidence of an acute intracranial abnormality. Senescent changes. Reading Location: [facility] Chest X-Ray 01/08/25 17:00 IMPRESSION: Slightly limited exam, without definite evidence of an acute cardiopulmonary abnormality. Reading Location: [id number] Physical Exam Const alert, oriented x3 and no apparent distress Constitutional Narrative: Upper middle-aged female, class III obesity, fatigued appearing but alert and oriented x 3, laying back comfortably in bed, answering questions appropriately. General Appearance: cooperative and comfortable HEENT normocephalic, head/scalp atraumatic, hearing grossly normal bilaterally, nasal mucous membranes and turbinates normal and moist oral mucous membranes Eyes PERRL, EOMs intact bilaterally and conjunctivae normal Neck full ROM Chest inspection of chest normal Resp normal respiratory effort, normal air movement, no use of accessory muscles and clear to auscultation bilaterally Cardio regular rate, regular rhythm, no murmurs and peripheral pulses 2+ throughout GI normal to inspection, nondistended, normoactive bowel sounds, soft to palpation,non-tender and non-distended Back/Spine normal ROM Extremity normal to inspection, full ROM and no pedal edema Skin no rashes or lesions noted Psych mental status grossly normal Assessment & Plan Assessment/Plan (1) Sepsis: PLAN: Plan Patient is a 64-year-old female who presented to [facility] ED on 01/08/2025 with altered mentation. 1. Sepsis suspected secondary to UTI ? Legal Officer following. Met sepsis criteria on admit with tachycardia, tachypnea, hypotension, lactic acidosis, encephalopathy and renal insufficiency with suspected urinary source. Hypotension was fluid responsive, did not require pressors on admit. UA with 100 leukocyte esterase, negative nitrates, 25-50 WBCs, 2+ bacteria. Renal ultrasound with small nonobstructing stones, otherwise normal. Chest x-ray unremarkable. Urine culture and blood cultures pending. Notably urine culture in October grew Klebsiella sensitive to everythingbut ampicillin. Continue treatment with IV Levaquin. Continue to monitor closely. 2. Acute metabolic encephalopathy, improving ? Suspected secondary to sepsis as above. CT brain negative on admit. Much improved on hospital day 2, fatigued but alert and oriented x 3. Continue treatment as above. Avoid sedating medications as able. 3. Mild creatinine elevation in setting of CKD stage IIIb, resolved ? Creatinine 1.8 on admit, baseline around 1.3. Resolved back to baseline on hospital day 2 after IV fluid resuscitation. 4. Acute on chronic debility, poor social situation with homelessness ? PT/OT/case management consulted. Patient has reportedly been staying with a friend in [place] recently and has been applying for housing. Appreciate therapy and case management assistance. 5. COPD/asthma with acute hypoxia ? Patient requiring 2 L nasal cannula on admit to maintain appropriate oxygen saturations. Chest x-ray on admit unremarkable. Suspect patient may be close to her baseline. Continue home inhalers and wean supplemental oxygen as able. Chronic medical conditions: ? Class III obesity: BMI 45 on admit. Complicates hospital course, care and prognosis. ? Paroxysmal A-fib, hypertension, hyperlipidemia: Continue home Eliquis, aspirinand statin. Holding home Lasix for now given sepsis as above. ? Type 2 diabetes mellitus: A1c 6.0% on admit. Not on home indication. Will treat with sliding scale insulin with meals while inpatient, adjust as needed. ? Tobacco abuse: NRT available per patient request. Discussed cessation on discharge. ? Anxiety/depression/bipolar disorder: Continue home citalopram, Seroquel, Ativan twice daily as needed and trazodone at night as needed. ? GERD: Continue home PPI. DVT prophylaxis: Not indicated, on Eliquis CODE STATUS: Full code, verified Expected disposition: TBD Total clinical time spent by myself addressing the patient's medical issues, reviewing all the data, and collaborating with patient's care team: 35 minutes. Charges/Coding Visit Charges Inpatient E&M: 17621 Subs Hosp L2 01/09/25 1722 <Electronically signed by Luis Antonio Navarro DO> Cosigner Signature (if applicable): CC: ~ Signed [facility] Work Phone: [phone]) 109-752806-25-2025 Radiology Diagnostic study [facility]06-25-2025 NoteHNO ID: [id number] Author: JOSE JARRELL MA Service: ? Author Type: Supervisor Matrix Type: Progress Notes Filed: 01/09/2025 07:33 Note Text: Pt admitted into [facility]. Scan on 01/08/2025 7:49 PM by Gita Curtis PA-C: [facility] Scan on 01/08/2025 11:49 PM by Gita Curtis PA-C: Hospitalist [facility] Scan on 01/09/2025 2:19 AM by Gita Curtis PA-C: Legal Officer [facility]06-25-2025 History of Present illness Narrative* Jose Jarrell MA - 01/09/2025 7:32 AM EDT Pt admitted into [facility]. Scan on 01/08/2025 7:49 PM by Gita Curtis PA-C: [facility] Scan on 01/08/2025 11:49 PM by Gita Curtis PA-C: Hospitalist [facility] Scan on 01/09/2025 2:19 AM by Gita Curtis PA-C: Legal Officer [facility] Consult note Author Jovani Wynn [facility] Note Date/Time January 09, 2025 1:55 am [facility] Medical Records Department [address] [place] [address] Consultation - Legal Officer 01/09/25 0141 MR#: [id number] Acct: [id number] Name: PERNELL RODRIGUEZ Rep #:[id number] : 1960 64 From: Jovani Wynn MD PCP: Dr. Homer Bradford MD Status:ADM IN Location: ICU ICU09-1 HPI Consult Data Date of Consult: 01/09/25 HPI Narrative Reason for Consultation: Sepsis and shock HPI Narrative: PERNELL RODRIGUEZ, is a 64 F who presents as brought in by responders after having been found confused at homeless group home. Patient is a poor participant in HPI and is slurring her speech and falling asleep to the point where she is unintelligble for HPI. Collateral info is thus obtained from review of the EMR and speaking with onsite staff. UA showing UTI. She is on 6mcg/min of norepinephrine drip. She recieved 30cc/kg IVF bolus, but has dumped about 600mL urine into Sorto bag. She is on 2Lm NC O2. [facility] Medical History Urinary tract infection History of echocardiogram Wears glasses Anxiety Depression Post-menopausal History of renal disease High cholesterol Back pain TIA (transient ischemic attack) Gastric reflux Smoker Shortness of breath on exertion History of pain when walking History of edema Cardiology follow-up encounter History of heart attack Chest pain History of left heart catheterization (LHC) (~12/30/20) CKD (chronic kidney disease) stage 3, GFR 30-59 ml/min Lung nodule COPD (chronic obstructive pulmonary disease) Paroxysmal atrial fibrillation Elevated liver enzymes Acute respiratory failure with hypoxia Stroke IBS (irritable bowel syndrome) Hyperlipidemia Heart disease Migraines Frequent headaches Gastrointestinal problem Diabetes History of back problems Asthma Arthritis Home Medications ?Medication ?Instructions ?Recorded ?Last Taken ?Type albuterol sulfate 90 mcg/actuation 2 puff inhalation Q 6H PRN 11/07/24 Unknown Rx aerosol inhaler shortness of breath or wheez ing #6.7 grams apixaban 5 mg tablet (Eliquis) 5 mg PO Q12 #60 tabs Unknown Rx citalopram 10 mg tablet 10 mg PO DAILY #30 tabs 10/17 10/09 Unknown Rx quetiapine 100 mg tablet 200 mg (2 x 100 mg) PO BID # 120 11/07/24 Unknown Rx tabs trazodone 100 mg tablet 200 mg (2 x 100 mg) PO QHS # 60 tabs 11/07/24 Unknown Rx lorazepam 0.5 mg tablet 0.5 mg PO Q12H PRN anxiety 0 11/14/24 Unknown History lovastatin 40 mg tablet 20 mg PO QHS 11/14/24 Unknow n History omeprazole 40 mg capsule,delayed 40 mg PO DAILY Unknown History release aspirin 81 mg capsule 81 mg PO DAILY 01/08/25 Unkn own History furosemide 20 mg tablet 20 mg PO BID 01/08/25 Unknow n History ipratropium 0.5 mg-albuterol 3 mg 3 ml inhalation Q20M PRN shortness 01/08/25 Unknown History (2.5 mg base)/3 mL nebulization of breath soln Allergy/AdvReac Type Severity Reaction Status Date / Time Penicillins Allergy Intermediate Hives Verified 01/08/25 16:28 carbamazepine (From Tegretol) AdvReac Intermediate Nausea Verified 01/08/25 16:28 benztropine AdvReac Unknown Verified 01/08/25 16:28 diazepam (From Valium) AdvReac Other Verified 01/08/25 16:28 Sulfa (Sulfonamide AdvReac Nausea Verified 01/08/25 16:28 Antibiotics) thioridazine AdvReac Nausea Verified 01/08/25 16:28 thioridazine HCl (From AdvReac Other Verified 01/08/25 16:28 Mellaril) Family History Grandmother Cancer stomach Father Cancer lung Sister Breast cancer Surgical History Hx of surgical procedure History of carpal tunnel surgery History of elbow surgery H/O shoulder surgery H/O hand surgery H/O dilation and curettage Hx of cholecystectomy History of tonsillectomy Social History household members: other details: Living in apt with friends, now moving out without home at discharge. housing: homeless Smoking Status: Heavy Smoker (>10/day) alcohol intake: never substance use type: does not use caffeine: Yes what type of physical activity do you participate in: walking seatbelt use: always do you feel safe at home: Yes ROS ROS Narrative Could not obtain 12 ore more systems 2/2 encephalopathy Review of Systems ROS Unobtainable: due to mental status; Denies due to endotracheal tube Objective Data Objective Data Vital Signs: Vital Signs Last response 3 Temperature 36.4 C L 01/09/25 00:00 Temperature Source Core 01/09/25 00:00 Pulse Rate 78 01/09/25 01:00 Respiratory Rate 14 01/09/25 01:00 Blood Pressure 108/52 L 01/09/25 01:00 Blood Pressure Mean 70 01/09/25 01:00 Blood Pressure Source Monitor 01/09/25 01:00 Blood Pressure Position Semi-Fowlers 01/08/25 23:00 Blood Pressure Location Right Arm 01/08/25 23:00 Pulse Ox 94 01/09/25 01:00 Oxygen Delivery Method Nasal Cannula 01/09/25 01:00 Oxygen Flow Rate (L/min) 2 01/09/25 01:00 I&O: I&O Last 24 Hours 3 01/08/25 01/08/25 01/09/25 11:59 23:59 11:59 Intake Total 3806.44 / 3809.27 14.14 / 14.14 Balance 3806.44 / 3809.27 14.14 / 14.14 I&O: Total Stay 3 01/08/25 16:27 thru 01/09/25 01:00 Intake Total 3820.58 Balance 3820.58 Current Meds Ordered / Administered: Current meds ordered / Administered 3 Generic Name Dose Route Start Last Admin Trade Name Freq PRN Reason Stop Dose Admin Acetaminophen 650 mg 01/08/25 20:32 01/08/25 21:44 Acetaminophen 325 Mg Tablet PO 650 mg Q4H PRN PRN Administration Fever, pain 1-10/10 Al Hydroxide/Mg Hydroxide 30 ml 01/08/25 20:32 Mag Hydrox/Al Hydrox/Simeth 30 Ml Udc PO Q6H PRN PRN Gastric Burning Albuterol Sulfate 2.5 mg 01/08/25 20:32 Albuterol 2.5 Mg/3 Ml Vial.Neb. INHALATION Q2H PRN PRN Dyspnea, wheezing Albuterol/Ipratropium 3 ml 01/08/25 20:32 Ipratropium/Albuterol Sulfate 3 Ml Ampul.Neb INHALATION Q6HWA.RT MARIA DEL CARMEN Apixaban 5 mg 01/08/25 22:00 01/08/25 21:44 Apixaban 5 Mg Tablet PO 5 mg Q12 MARIA DEL CARMEN Administration Aspirin 81 mg 01/09/25 08:00 Aspirin 81 Mg Tab.Chew PO BREAKFAST MARIA DEL CARMEN Atorvastatin Calcium 5 mg 01/08/25 22:00 01/08/25 21:51 Atorvastatin Calcium 10 Mg Tablet PO 5 mg QHS MARIA DEL CARMEN Administration Calamine/Phenol 1 applic 01/08/25 22:00 01/08/25 21:45 Menthol/Lanolin/Calamine/Znox 113 Gm Tube TOPICAL 1 applic 4X/DAY MARIA DEL CARMEN Administration Protocol Citalopram Hydrobromide 10 mg 01/09/25 10:00 Citalopram 10 Mg Tablet PO DAILY MARIA DEL CARMEN Glucagon 1 mg 01/08/25 23:19 Glucagon 1 Mg/Ml Syringe IM X1 PRN Hypoglycemia Protocol Guaifenesin 10 ml 01/08/25 20:32 Guaifenesin 10 Ml Udc (200mg/10ml) PO Q4H PRN PRN COUGH Sodium Chloride 1,000 mls @ 100 mls/hr 01/08/25 20:32 01/08/25 21:51 IV 01/09/25 11:31 100 mls/hr .Q10H MARIA DEL CARMEN Administration Norepinephrine Bitartrate 8 mg 250 mls @ 9.375 mls/hr 01/08/25 22:55 01/09/2501:00 / Sodium Chloride CONT INF 6 mcg/min .[id number] MARIA DEL CARMEN 11.3 mls/hr Titration Protocol 5 MCG/MIN Sodium Chloride 250 mls @ 15 mls/hr 01/08/25 23:16 IV .[id number] PRN Saline Flush Sodium Chloride 250 mls @ 15 mls/hr 01/08/25 23:16 IV .[id number] PRN Additional IVPB Infusion Dextrose 250 mls @ 0 mls/hr 01/08/25 23:19 Dextrose 10%-Water IV .Q0M PRN HYPOGLYCEMIA Protocol As Directed Lactated Ringer's 1,000 mls @ 500 mls/hr 01/09/25 00:45 01/09/25 01:15 IV 01/09/25 02:44 500 mls/hr .Q2H [facility] Administration Insulin Human Lispro 0 unit 01/09/25 07:00 Insulin Lispro 100 Unit/Ml Insuln.Pen SC ACHS [facility] Protocol Levofloxacin 750 mg 01/10/25 22:00 Levofloxacin 750 Mg Tablet PO Q48@2200 [facility] Melatonin 3 mg 01/08/25 20:32 Melatonin 3 Mg Tablet PO QHS PRN PRN INSOMNIA Midodrine 10 mg 01/09/25 08:00 Midodrine Hcl 5 Mg Tablet PO 01/12/25 23:59 TIDCM [facility] Ondansetron HCl 4 mg 01/08/25 20:32 Ondansetron 4 Mg/2 Ml Vial IV Q8H PRN PRN NAUSEA/VOMITING Pantoprazole Sodium 40 mg 01/09/25 10:00 Pantoprazole Sodium 40 Mg Tablet PO DAILY [facility] Prochlorperazine Edisylate 5 mg 01/08/25 20:32 Prochlorperazine 10 Mg/2 Ml Vial IV Q4H PRN PRN Breakthrough Nausea/Vomiting Quetiapine Fumarate 200 mg 01/08/25 22:00 01/08/25 21:51 Quetiapine 100 Mg Tablet PO 200 mg BID [facility] Administration Protocol Senna/Docusate Sodium 2 tablet 01/08/25 20:32 Senna/Docusate Sodium 1 Tablet PO BID PRN PRN Constipation Sodium Chloride 10 - 40 ml 01/08/25 23:16 0.9% Saline Lock 10 Ml Syringe IV UD PRN SALINE FLUSH Physical Exam Const General Appearance: lethargic, ill appearing and frail Orientation / Consciousness: obtunded HEENT normocephalic and head/scalp atraumatic Eyes PERRL and no scleral icterus Neck no JVD Resp no use of accessory muscles Auscultation: clear to auscultation bilaterally Cardio regular rate and regular rhythm GI soft to palpation and non-tender no CVA tenderness Extremity no clubbing, cyanosis or edema Skin no rashes or lesions noted Psych Appearance: unkempt Lab / Micro Data Attestation: I reviewed the patient's lab results. 01/08/25 16:41 01/08/25 16:41 Labs: Laboratory Results - last 24 hr 01/08/25 16:41: WBC 9.8, RBC 4.42, Hgb 13.5, Hct 41.1, MCV 93.0, MCH 30.5, MCHC 32.8, RDW Std Deviation 46.9 H, RDW Coeff of Robert 13.7, Plt Count 245, MPV 10.5, Immature Gran % (Auto) 0.100, Neut % (Auto) 76.0 H, Lymph % (Auto) 15.8 L, Price % (Auto) 6.6, Eos % (Auto) 1.3, Baso % (Auto) 0.2, Absolute Neuts (auto) 7.4, Absolute Lymphs (auto) 1.55, Nucleated RBC % 0, PT 14.3, INR 1.1, APTT 27.1, Sodium 140, Potassium 3.4, Chloride 105, Carbon Dioxide 18.9 L, Anion Gap 16 H, BUN 17, Creatinine 1.82 H, Estim Creat Clear Calc 38.69 L, Est GFR (MDRD) Non-Af31 L, BUN/Creatinine Ratio 9.2 L, Glucose 138 H, Lactic Acid 3.9 H*, Calcium 8.7, Total Bilirubin 0.39, AST 18, ALT 8, Alkaline Phosphatase 77, Total Protein6.4, Albumin 3.7, Globulin 2.7, Albumin/Globulin Ratio 1.4, Lipase 22, Urine Color Yellow, Urine Clarity Sl. Cloudy, Urine pH 6.0, Ur Specific Boutte 1.020,Urine Protein 30 H, Urine Glucose (UA) Normal, Urine Ketones Negative, Urine Occult Blood 25 H, Urine Nitrite Negative, Urine Bilirubin 1 H, Urine Urobilinogen 1 H, Ur Leukocyte Esterase 100 H, Urine RBC 0-5 SEEN, Urine WBC 25-50 SEEN, Ur Squamous Epith Cells 5-10 SEEN, Ur Transition Epith Cell 0-5 SEEN, Urine Bacteria 2+, Urine Mucus 0 SEEN, Urine Opiates Screen NEGATIVE, U Buprenorphine Qual NEGATIVE, Ur Oxycodone Screen NEGATIVE, Urine Methadone Screen NEGATIVE, Urine Fentanyl Screen NEGATIVE, Ur Barbiturates Screen NEGATIVE, Ur Phencyclidine Scrn NEGATIVE, Ur Amphetamines Screen NEGATIVE, U Benzodiazepines Scrn PRESUMPTIVE POSITIVE, Urine Cocaine Screen NEGATIVE, U Cannabinoids Screen NEGATIVE, Ethyl Alcohol < 10.1 01/08/25 21:20: Lactic Acid < 1.0 01/08/25 23:40: POC Glucose 108 H ABG Data ABG results: ABG 01/08/25 16:58 Specimen Type ART Sample Site R BRACHIAL pH 7.46 H Bicarbonate Actual 21.1 L Total CO2 22 Base Excess -3 L O2 Saturation 91 L ABG pCO2 29.6 L ABG pO2 55 L Liter Flow 3.0 Imaging Radiology Impression Brain CT 01/08/25 16:50 IMPRESSION: Slightly limited exam, without evidence of an acute intracranial abnormality. Senescent changes. Reading Location: [facility] Chest X-Ray 01/08/25 17:00 IMPRESSION: Slightly limited exam, without definite evidence of an acute cardiopulmonary abnormality. Reading Location: [facility] CXR reviewed Assessment and Plan . Assessment and plan: ICU Problem List: septic shock acute metabolic encephalopathy morbid obesity obstructive uropathy Plan: maintain Sorto titraet norepinephrine to MAP 65 torr repeat LA better, but due to diuresis, will add aother 1L IVF bolus over 2 hours meropenem or cefepime for UTI empirically given h/o UTI PO midodrine 10mg q8h can add on hydrocortsone 50mg IV q8h if adrenal insufficiency suspected, but would hold off untl 2nd pressor needed Jovani Wynn MD P[facility] 65 minTime: The entirety of this encounter was done via Telemedicine 01/09/25 0155 <Electronically signed by Jovani Wynn MD> Cosigner Signature (if applicable): CC: Dr. Homer Bradford MD~ Signed [facility] Work Phone: [phone] History and physical note Author Lauren Vela [facility] Note Date/Time January 08, 2025 11:2 8pm [facility] Medical Records Department [address] [place] [address] H&P Exam - Hospitalist 01/08/251913 MR#: [id number] Acct: [id number] Name: PERNELL RODRIGUEZ CHEKO Rep #:[id number] : 1960 64 From: Lauren Vela MD PCP: Dr. Homer Bardford MD Status:ADM IN Location: ICU ICU09- HPI - General General Date of Admission: 01/08/25 Date of Service: 01/08/25 Chief Complaint: Confusion HPI Narrative The patient is a 64 y/o F w/ PMHx: Morbidly obese, HTN, HLD, CKD stage III unclear subtype, Hx TIA, Anxiety and Depression/bipolar disorder, PAF, GERD, Tobacco use, Chronic COPD/asthma who presents to the [facility] ED on 01/08/25 with history of altered mental status found at the [facility] where she has been living secondary to homeless status noted to be confused, tachycardic, hypoxic and febrile upon EMS evaluation with possibly generalized abdominal discomfort but uncertain as patient was a poor historian upon initial ED evaluation prompting EMS to bring her to the hospital for evaluation. Workup in the ED included T103.3, heart rate 144, BP 129/55, respiratory rate 18, 90% on 3 L nasal cannula with most recent repeat vitals T99.2, heart rate 103, BP 104/76, respiratory rate 15, 95% on 3 L nasal cannula, CBC with WBC 9.8, human 13.5, platelet 245 without marked shift, unremarkable coags, ABG with pH 7.46, bicarb 21.1, O2 saturation 91%, pCO2 29.6, PO255 on 3 L, CMP with carbon oxide 18.9, anion gap 16, BUN/creatinine 17/1.82, GFR 31, glucose 138, initial lactic acid 3.9 with repeat less than 1 following ED initiated 30 cc/kg IV fluid bolus, unremarkable hepatic profile, urine noted to be cloudy, specific roughly 1.20, urine protein 30, occult blood 25, negative nitrite, leukocyte Estrace 100 with urine RBCs 25-50, 2+ urine bacteria, urine culture pending per ED, UDS with presumptive positive benzodiazepines, ethyl alcohol level less than 10.1, CT brain with no acute intracranial finding, chest x-ray with no acute cardiopulmonary findings, EKG with sinus tachycardia with no acute evidence of ischemia. In the ED patient ministered 30 cc/kg IV fluids, Levaquin 750 mg IV x1 given allergy history. [facility] Medical History Urinary tract infection History of echocardiogram Wears glasses Anxiety Depression Post-menopausal History of renal disease High cholesterol Back pain TIA (transient ischemic attack) Gastric reflux Smoker Shortness of breath on exertion History of pain when walking History of edema Cardiology follow-up encounter History of heart attack Chest pain History of left heart catheterization (LHC) (~12/30/20) CKD (chronic kidney disease) stage 3, GFR 30-59 ml/min Lung nodule COPD (chronic obstructive pulmonary disease) Paroxysmal atrial fibrillation Elevated liver enzymes Acute respiratory failure with hypoxia Stroke IBS (irritable bowel syndrome) Hyperlipidemia Heart disease Migraines Frequent headaches Gastrointestinal problem Diabetes History of back problems Asthma Arthritis Home Medications ?Medication ?Instructions ?Recorded ?Last Taken ?Type albuterol sulfate 90 mcg/actuation 2 puff inhalation Q 6H PRN 11/07/24 Unknown Rx aerosol inhaler shortness of breath or wheez ing #6.7 grams apixaban 5 mg tablet (Eliquis) 5 mg PO Q12 #60 tabs Unknown Rx citalopram 10 mg tablet 10 mg PO DAILY #30 tabs 10/17 10/09 Unknown Rx quetiapine 100 mg tablet 200 mg (2 x 100 mg) PO BID # 120 11/07/24 Unknown Rx tabs trazodone 100 mg tablet 200 mg (2 x 100 mg) PO QHS # 60 tabs 11/07/24 Unknown Rx lorazepam 0.5 mg tablet 0.5 mg PO Q12H PRN anxiety 0 11/14/24 Unknown History lovastatin 40 mg tablet 20 mg PO QHS 11/14/24 Unknow n History omeprazole 40 mg capsule,delayed 40 mg PO DAILY Unknown History release aspirin 81 mg capsule 81 mg PO DAILY 01/08/25 Unkn own History furosemide 20 mg tablet 20 mg PO BID 01/08/25 Unknow n History ipratropium 0.5 mg-albuterol 3 mg 3 ml inhalation Q20M PRN shortness 01/08/25 Unknown History (2.5 mg base)/3 mL nebulization of breath soln Allergy/AdvReac Type Severity Reaction Status Date / Time Penicillins Allergy Intermediate Hives Verified 01/08/25 16:28 carbamazepine (From Tegretol) AdvReac Intermediate Nausea Verified 01/08/25 16:28 benztropine AdvReac Unknown Verified 01/08/25 16:28 diazepam (From Valium) AdvReac Other Verified 01/08/25 16:28 Sulfa (Sulfonamide AdvReac Nausea Verified 01/08/25 16:28 Antibiotics) thioridazine AdvReac Nausea Verified 01/08/25 16:28 thioridazine HCl (From AdvReac Other Verified 01/08/25 16:28 Mellaril) Family History Grandmother Cancer stomach Father Cancer lung Sister Breast cancer Surgical History Hx of surgical procedure History of carpal tunnel surgery History of elbow surgery H/O shoulder surgery H/O hand surgery H/O dilation and curettage Hx of cholecystectomy History of tonsillectomy Social History household members: other details: Living in apt with friends, now moving out without home at discharge. housing: homeless Smoking Status: Heavy Smoker (>10/day) alcohol intake: never substance use type: does not use caffeine: Yes what type of physical activity do you participate in: walking seatbelt use: always do you feel safe at home: Yes ROS ROS Narrative Admission Review of Systems: CONSTITUTIONAL: No weight loss, + fever, chills, weakness or fatigue. HEENT: Eyes: No visual loss, blurred vision, double vision or yellow sclerae. Ears, Nose, Throat: No hearing loss, sneezing, congestion, runny nose or sore throat. SKIN: No rash or itching, lesions, wounds except for + occasional stage ecchymoses, abrasions. CARDIOVASCULAR: + Palpitations. No chest pain, chest pressure or chest discomfort, edema, orthopnea, syncopal events. RESPIRATORY: + Chronic dyspnea, worse with exertion, occasional wheezing. No recent productive cough, hemoptysis. GASTROINTESTINAL: No anorexia, nausea, vomiting or diarrhea, abdominal pain, melena, BRBPR. GENITOURINARY: + Dysuria, increased urinary frequency. No urgency or retention. NEUROLOGICAL: + Transient confusion. No headache, dizziness, syncope, paralysis, ataxia, numbness or tingling in the extremities, focal weakness, change in bowel or bladder control, seizure. MUSCULOSKELETAL: + muscle, back pain, joint pain or stiffness. HEMATOLOGIC: No anemia, bleeding or bruising. LYMPHATICS: No enlarged nodes. No history of splenectomy. PSYCHIATRIC: + History of anxiety and depression/bipolar disorder. ENDOCRINOLOGIC: No reports of sweating, cold or heat intolerance. No polyuria orpolydipsia. ALLERGIES: + History of asthma. Vital Signs Vital Signs Vital Signs: 01/08/25 16:29 01/08/25 16:34 01/08/25 17:00 Temperature 103.3 F H 103.3 F H Temperature Source Axillary Oral Pulse Rate 144 H 142 H Respiratory Rate 18 20 H Blood Pressure 129/55 H 129/55 H Blood Pressure Mean 79 79 Pulse Ox 90 92 Oxygen Delivery Method Nasal Cannula Nasal Cannula Nasal Cannula Oxygen Flow Rate (L/min) 3 3 3 01/08/25 17:02 01/08/25 17:32 01/08/25 18:00 Temperature 102.1 F H 100.5 F H 99.2 F H Temperature Source Core Oral Core Pulse Rate 114 H 105 H 103 H Respiratory Rate 19 H 15 15 Blood Pressure 95/81 H 100/65 104/76 Blood Pressure Mean 85 76 85 Pulse Ox 94 93 95 Oxygen Delivery Method Nasal Cannula Nasal Cannula Nasal Cannula Oxygen Flow Rate (L/min) 3 3 3 01/08/25 18:30 Temperature 98.7 F Temperature Source Core Pulse Rate 96 Respiratory Rate 12 Blood Pressure 126/86 H Blood Pressure Mean 99 Pulse Ox 100 Oxygen Delivery Method Nasal Cannula Oxygen Flow Rate (L/min) 3 Weight Weight: 255 lb 11.779 oz Body Mass Index (BMI) 46.7 Physical Exam Narrative Physical Examination: General: Patient with improved mental status, alert, awake, oriented to self, place and some recent events, currently no acute distress but fatigued. Skin: Normal color, normal turgor, no icterus, no cyanosis except for occasionalstage ecchymoses, abrasions. HEENT: AT/NC, EOMI, PERRLA, dry MM, no carotid bruits or JVD noted. Lungs: Mildly diminished, greater bases, occasional end expiratory wheeze, no evidence of any distress, no rales or rhonchi. Heart: Mildly tachycardic with regular rhythm; no gallop, rub audible. Abdomen: Soft, morbidly obese, mild tenderness to palpation of the suprapubic region otherwise abdomen NTTP, mildly hyperactive BS, difficult to discern distention HSM given habitus Extremities: No cyanosis, no clubbing, mild ankle to distal candelaria not markedly pitting edema. Neurological: Patient awake, alert, oriented as noted, clinically improved, cognitive function suspect nearing baseline intact, pupils equally reactive to light and accommodation, cranial nerves gross normal, moving all 4 extremities, no focal deficits, strength moderately to severely global decreased. Psychiatric: Affect appears flat, fatigued, no acute evidence of depressive or anxiety feelings but does have underlying history. Results Lab / Micro Data 01/08/25 16:41 01/08/25 16:41 Labs: Laboratory Results - last 24 hr 01/08/25 16:41: WBC 9.8, RBC 4.42, Hgb 13.5, Hct 41.1, MCV 93.0, MCH 30.5, MCHC 32.8, RDW Std Deviation 46.9 H, RDW Coeff of Robert 13.7, Plt Count 245, MPV 10.5, Immature Gran % (Auto) 0.100, Neut % (Auto) 76.0 H, Lymph % (Auto) 15.8 L, Price % (Auto) 6.6, Eos % (Auto) 1.3, Baso % (Auto) 0.2, Absolute Neuts (auto) 7.4, Absolute Lymphs (auto) 1.55, Nucleated RBC % 0, PT 14.3, INR 1.1, APTT 27.1, Sodium 140, Potassium 3.4, Chloride 105, Carbon Dioxide 18.9 L, Anion Gap 16 H, BUN 17, Creatinine 1.82 H, Estim Creat Clear Calc 38.69 L, Est GFR (MDRD) Non-Af31 L, BUN/Creatinine Ratio 9.2 L, Glucose 138 H, Lactic Acid 3.9 H*, Calcium 8.7, Total Bilirubin 0.39, AST 18, ALT 8, Alkaline Phosphatase 77, Total Protein6.4, Albumin 3.7, Globulin 2.7, Albumin/Globulin Ratio 1.4, Lipase 22, Urine Color Yellow, Urine Clarity Sl. Cloudy, Urine pH 6.0, Ur Specific Boutte 1.020,Urine Protein 30 H, Urine Glucose (UA) Normal, Urine Ketones Negative, Urine Occult Blood 25 H, Urine Nitrite Negative, Urine Bilirubin 1 H, Urine Urobilinogen 1 H, Ur Leukocyte Esterase 100 H, Urine RBC 0-5 SEEN, Urine WBC 25-50 SEEN, Ur Squamous Epith Cells 5-10 SEEN, Ur Transition Epith Cell 0-5 SEEN, Urine Bacteria 2+, Urine Mucus 0 SEEN, Urine Opiates Screen NEGATIVE, U Buprenorphine Qual NEGATIVE, Ur Oxycodone Screen NEGATIVE, Urine Methadone Screen NEGATIVE, Urine Fentanyl Screen NEGATIVE, Ur Barbiturates Screen NEGATIVE, Ur Phencyclidine Scrn NEGATIVE, Ur Amphetamines Screen NEGATIVE, U Benzodiazepines Scrn PRESUMPTIVE POSITIVE, Urine Cocaine Screen NEGATIVE, U Cannabinoids Screen NEGATIVE, Ethyl Alcohol < 10.1 ABG Data ABG results: ABG 01/08/25 16:58 Specimen Type ART Sample Site R BRACHIAL pH 7.46 H Bicarbonate Actual 21.1 L Total CO2 22 Base Excess -3 L O2 Saturation 91 L ABG pCO2 29.6 L ABG pO2 55 L Liter Flow 3.0 Imaging Radiology Impression Brain CT 01/08/25 16:50 IMPRESSION: Slightly limited exam, without evidence of an acute intracranial abnormality. Senescent changes. Reading Location: [id number] Chest X-Ray 01/08/25 17:00 IMPRESSION: Slightly limited exam, without definite evidence of an acute cardiopulmonary abnormality. Reading Location: [id number] Assessment & Plan Assessment/Plan (1) Sepsis: (2) Complicated urinary tract infection: PLAN: Plan The patient is a 64 y/o F w/ PMHx: Morbidly obese, HTN, HLD, CKD stage III unclear subtype, Hx TIA, Anxiety and Depression/bipolar disorder, PAF, GERD, Tobacco use, Chronic COPD/asthma who presents to the [facility] ED on 01/08/25 with history of altered mental status found at the [facility] where she has been living secondary to homeless status noted to be confused, tachycardic, hypoxic and febrile upon EMS evaluation with possibly generalized abdominal discomfort but uncertain as patient was a poor historian upon initial ED evaluation prompting EMS to bring her to the hospital for evaluation. #1. Acute Sepsis secondary to Acute Encephalopathy secondary to Acute Complicated Urinary Tract Infection (hypoxia, tachycardia, tachypnea, encephalopathy, significant lactic acidosis, renal insufficiency) complicated byacute hypoxia suspected secondary to primary acute infectious presentation with underlying COPD concurrently as noted: Will admit to the ICU, UA upon ED evaluation remarkable, pending UCx, will continue aggressive IV fluids with 30 cc per Cloderm IV fluid bolus ongoing per ED, will maintain on IV Levaquin givenallergy history with last noted urine culture result that was positive with Klebsiella sensitive to Levaquin at that time, 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 Bld cx x 2 obtained inthe ED. #2. Acute renal insufficiency/increased creatinine on CKD stage III, unclear subtype: Admission BUN/: 17/1.82, GFR 31, baseline creatinine primarily 1.3-1.4,will continue to hydrate with 30 cc/kg IV fluid bolus initiated per ED and repeat CMP in AM. #3. Chronic COPD/asthma with as noted above acute hypoxia: Will maintain on oxygen with wean as tolerated to room air as noted above, likely secondary to acute septic presentation, will maintain onATC duonebs, PRN albuterol, HOB, IS parameters. #4. PAF: Not on rate or rhythm agent, will continue patient home Eliquis regimen. #5. Diabetes mellitus type II: Noted chart history, not on regimen per current list, hemoglobin A1c requested, maintain on ADA diet, accu checks w/ ISS. #6. Hypertension: Temporarily holding Lasix given low BP in the ED with septic presentation, add back once clinically appropriate. #7. Hyperlipidemia: Will continue patient on statin therapy. #8. Tobacco Abuse: Encouraged cessation, inpatient consultation per RT, NR if desired. #9. Anxiety and depression/bipolar disorder: Will continue patient home citalopram regimen. Temporarily holding high dose Seroquel and lorazepam given encephalopathy in the ED. #10. History TIA: Will continue Eliquis, statin therapy, temporally holding hypertensive regimen as noted. #11. GERD: Will continue patient on PPI. #12. Homelessness: Complicates presentation, patient without group home at discharge aside from possibly [facility] however the depending on what patient needs this may be limited, high risk for nonadherence to treatment with subsequent increased risk for complications of readmission given homelessness status. Case management consulted. #13. Morbid Obesity: Weight loss and lifestyle changes encouraged. #14. DVT prophylaxis: Continue home Eliquis regimen. #15. CODE status: Patient does not have healthcare power of attorney general or living will in place and is uncertain of who she would name at this point. Discussed CODE status at length including difference between FULL code, DNR-CCA and DNR-CCstatus. Following discussions about the differences in these status, requested Full Code status. Advanced Care Planning Face to Face Time: 16 minutes. Charges/Coding Visit Charges Inpatient E&M: 90372 Init Hosp L3 Procedures Hospitalists Procedures: 47484 Advncd Care Plan 30 Min 01/08/25 2328 <Electronically signed by Lauren Vela MD> Cosigner Signature (if applicable): CC: Dr. Lauren Vela MD; Dr. Homer Bradford MD~ Signed [facility] Work Phone: [phone]) 766-741806-24-2025 Discharge summary Author Issa Chapin [facility] Note Date/Time January 08, 2025 7:37 pm [facility] Medical Records Department [address] [place] [address] Emergency Department Summary 01/08/25 MR#: [id number] Acct: [id number] Name: PERNELL RODRIGUEZ Rep #:[id number] : 1960 64 From: Issa Chapin MD PCP: Dr. Homer Bradford MD Status:ADM IN Location: ICU ICU09-1 HPI History of Present Illness Chief Complaint: Alt LOC Detail of Chief Complaint: Altered mental status, found down [place] Informant: EMS Onset/Context/Timing Onset: - (Patient with altered mental status. Lives at the [facility]) Quality: Altered mental status, tachycardia, febrile and hypoxic Mechanism/Context: Yes other Current Severity: Severe Maximum Severity: Severe Worsened by: Poor p.o. intake, environmental exposure on Lexapro Associated Symptoms Associated Symptoms: abdominal pain Narrative Narrative: Patient is a 64-year-old woman. She has history of stage III kidney disease dueto type 1 diabetes, COPD with overlap with asthma, peripheral vascular disease, hyperlipidemia, bipolar affective disorder, BMI 46.8, tardive dyskinesia, nicotine addiction and history of paroxysmal atrial fibrillation. EKG that was transmitted from [employer] revealed a rate of 154 which raise concern for possible ability of atrial for flutter. EKG in the department shows a narrow complex tachycardia that I believe is sinus mechanism. QT is prolonged. There is nonseptic changes noted as well. [facility] Medical History Urinary tract infection History of echocardiogram Wears glasses Anxiety Depression Post-menopausal History of renal disease High cholesterol Back pain TIA (transient ischemic attack) Gastric reflux Smoker Shortness of breath on exertion History of pain when walking History of edema Cardiology follow-up encounter History of heart attack Chest pain History of left heart catheterization (LHC) (~12/30/20) CKD (chronic kidney disease) stage 3, GFR 30-59 ml/min Lung nodule COPD (chronic obstructive pulmonary disease) Paroxysmal atrial fibrillation Elevated liver enzymes Acute respiratory failure with hypoxia Stroke IBS (irritable bowel syndrome) Hyperlipidemia Heart disease Migraines Frequent headaches Gastrointestinal problem Diabetes History of back problems Asthma Arthritis Home Medications ?Medication ?Instructions ?Recorded ?Last Taken ?Type albuterol sulfate 90 mcg/actuation 2 puff inhalation Q 6H PRN 11/07/24 Unknown Rx aerosol inhaler shortness of breath or wheez ing #6.7 grams apixaban 5 mg tablet (Eliquis) 5 mg PO Q12 #60 tabs Unknown Rx citalopram 10 mg tablet 10 mg PO DAILY #30 tabs 10/17 10/09 Unknown Rx quetiapine 100 mg tablet 200 mg (2 x 100 mg) PO BID # 120 11/07/24 Unknown Rx tabs trazodone 100 mg tablet 200 mg (2 x 100 mg) PO QHS # 60 tabs 11/07/24 Unknown Rx lorazepam 0.5 mg tablet 0.5 mg PO Q12H PRN anxiety 0 11/14/24 Unknown History lovastatin 40 mg tablet 20 mg PO QHS 11/14/24 Unknow n History omeprazole 40 mg capsule,delayed 40 mg PO DAILY Unknown History release aspirin 81 mg capsule 81 mg PO DAILY 01/08/25 Unkn own History furosemide 20 mg tablet 20 mg PO BID 01/08/25 Unknow n History ipratropium 0.5 mg-albuterol 3 mg 3 ml inhalation Q20M PRN shortness 01/08/25 Unknown History (2.5 mg base)/3 mL nebulization of breath soln Allergy/AdvReac Type Severity Reaction Status Date / Time Penicillins Allergy Intermediate Hives Verified 01/08/25 16:28 carbamazepine (From Tegretol) AdvReac Intermediate Nausea Verified 01/08/25 16:28 benztropine AdvReac Unknown Verified 01/08/25 16:28 diazepam (From Valium) AdvReac Other Verified 01/08/25 16:28 Sulfa (Sulfonamide AdvReac Nausea Verified 01/08/25 16:28 Antibiotics) thioridazine AdvReac Nausea Verified 01/08/25 16:28 thioridazine HCl (From AdvReac Other Verified 01/08/25 16:28 Mellaril) Family History Grandmother Cancer stomach Father Cancer lung Sister Breast cancer Surgical History Hx of surgical procedure History of carpal tunnel surgery History of elbow surgery H/O shoulder surgery H/O hand surgery H/O dilation and curettage Hx of cholecystectomy History of tonsillectomy Social History household members: other details: Living in apt with friends, now moving out without home at discharge. housing: homeless Smoking Status: Heavy Smoker (>10/day) alcohol intake: never substance use type: does not use caffeine: Yes what type of physical activity do you participate in: walking seatbelt use: always do you feel safe at home: Yes ROS ROS ED Review of Systems ROS Unobtainable: due to mental status EXAM Physical Exam Const Vital Signs: 01/08/25 16:29 01/08/25 16:34 01/08/25 17:00 Temperature 103.3 F H 103.3 F H Temperature Source Axillary Oral Pulse Rate 144 H 142 H Respiratory Rate 18 20 H Blood Pressure 129/55 H 129/55 H Blood Pressure Mean 79 79 Pulse Ox 90 92 Oxygen Delivery Method Nasal Cannula Nasal Cannula Nasal Cannula Oxygen Flow Rate (L/min) 3 3 3 01/08/25 17:02 01/08/25 17:32 01/08/25 18:00 Temperature 102.1 F H 100.5 F H 99.2 F H Temperature Source Core Oral Core Pulse Rate 114 H 105 H 103 H Respiratory Rate 19 H 15 15 Blood Pressure 95/81 H 100/65 104/76 Blood Pressure Mean 85 76 85 Pulse Ox 94 93 95 Oxygen Delivery Method Nasal Cannula Nasal Cannula Nasal Cannula Oxygen Flow Rate (L/min) 3 3 3 01/08/25 18:30 01/08/25 19:00 01/08/25 19:30 Temperature 98.7 F 98.5 F 98.4 F Temperature Source Core Core Core Pulse Rate 96 95 94 Respiratory Rate 12 16 18 Blood Pressure 126/86 H 131/82 H 108/56 L Blood Pressure Mean 99 98 73 Pulse Ox 100 100 100 Oxygen Delivery Method Nasal Cannula Nasal Cannula Nasal Cannula Oxygen Flow Rate (L/min) 3 3 3 01/08/25 19:30 Temperature 98.4 F Temperature Source Pulse Rate 93 Respiratory Rate 18 Blood Pressure 108/56 L Blood Pressure Mean 73 Pulse Ox 100 Oxygen Delivery Method Oxygen Flow Rate (L/min) Positive well nourished, well developed and obese Constitutional Narrative: Patient sunburn. Altered mental status. Clinically dehydrated. General Appearance ED: well developed; Negative for pallor Nutritional Appearance: obese HEENT HEENT Narrative: Mucosa is dry. normocephalic and atraumatic; Negative for cyanosis of lips/distal nose Eyes PERRL and EOMs intact bilaterally General Eye ED: Negative for pale conjunctiva or scleral icterus Neck full ROM, no lymphadenopathy and supple Chest Wall Chest Narrative: Unremarkable. From the bra line up patient is sunburned. Resp Resp Narrative: Diminished breath sounds bilaterally with bibasilar rales. Cardio regular rhythm, S1 normal heart sound, S2 normal heart sound and no murmurs Rate: tachycardic GI non-tender, non-distended and no masses Inspection: Negative for abdominal distention Palpation: soft Extremity Extremity Narrative: There is no clubbing or cyanosis. Capillary fill is normal. Do not appreciate PT pulse either side. Neuro No oriented x3, CN's II-XII intact bilaterally and no sensory deficits noted Neuro Narrative: Patient is not awake. She is very slow to respond. She does not know her age. She does not know the month. She does know the year. Sensorium / Orientation: oriented to person, oriented to place and confused; Negative for alert Psych Negative for mental status grossly normal Skin General Skin Exam: Negative for jaundice or pallor Lesions: no lesions Rashes: no rashes Sepsis Attestation Sepsis Alert: Yes Date exam was performed: 01/08/25 Time exam was performed: 18:16 (Made aware of alert however no obvious source and there is other potential causes for her presentation.) Possible Source of Sepsis: Genitourinary Sepsis Organ Dysfunction Criteria Present: Lactic Acid > 2 mmol/L and New/Unexplained change in mental status Supportive Findings: Suspect this is due to environmental exposure unless her urine is indicative of infection. Time of this entry 1815. Fluid Resuscitation Fluid resuscitation indicated?: Yes Fluid Resuscitation ordered: 30 ml/kg fluid bolus ordered Amount of fluid ordered: 3,350 MDM MDM MDM Narrative Medical decision making narrative: Fact the patient was found down on Eliquis need to evaluate for intracranial bleed, need to evaluate for infectious and metabolic cause. There is also concern for heatstroke. Cooling blanket was applied. Patient had ice in her axillas and groin. History & Record Review Additional record(s) reviewed:: Prior outpatient record (22 page correspondence from outside facility was reviewed. Patient was admitted for failure to thrive and multiple other medical problems. Most recent med list was given to her primary care nurse. Will compare today's lab results to lab [facility] Prior ED visit and Prior labs Lab Data Attestation: I reviewed the patient's lab results. Lab results narrative: Comprehensive metabolic panel is remarkable for a BUN of 17 and a creatinine of 1.82. Baseline creatinine is 1.3. CBC is unremarkable. Coags are normal. Toxscreen is presumptive positive for benzos. Macro urine is positive for bilirubin, urobilinogen, leukoesterase, blood and negative for nitrites. Urine is slightly cloudy with a Cerva gravity of 1.02. Labs: Laboratory Results - last 24 hr 01/08/25 16:41 WBC 9.8 RBC 4.42 Hgb 13.5 Hct 41.1 MCV 93.0 MCH 30.5 MCHC 32.8 RDW Std Deviation 46.9 H RDW Coeff of Robert 13.7 Plt Count 245 MPV 10.5 Immature Gran % (Auto) 0.100 Neut % (Auto) 76.0 H Lymph % (Auto) 15.8 L Price % (Auto) 6.6 Eos % (Auto) 1.3 Baso % (Auto) 0.2 Absolute Neuts (auto) 7.4 Absolute Lymphs (auto) 1.55 Nucleated RBC % 0 PT 14.3 INR 1.1 APTT 27.1 Sodium 140 Potassium 3.4 Chloride 105 Carbon Dioxide 18.9 L Anion Gap 16 H BUN 17 Creatinine 1.82 H Estim Creat Clear Calc 38.69 L Est GFR (MDRD) Non-Af 31 L BUN/Creatinine Ratio 9.2 L Glucose 138 H Lactic Acid 3.9 H* Calcium 8.7 Total Bilirubin 0.39 AST 18 ALT 8 Alkaline Phosphatase 77 Total Protein 6.4 Albumin 3.7 Globulin 2.7 Albumin/Globulin Ratio 1.4 Lipase 22 Urine Color Yellow Urine Clarity Sl. Cloudy Urine pH 6.0 Ur Specific Boutte 1.020 Urine Protein 30 H Urine Glucose (UA) Normal Urine Ketones Negative Urine Occult Blood 25 H Urine Nitrite Negative Urine Bilirubin 1 H Urine Urobilinogen 1 H Ur Leukocyte Esterase 100 H Urine RBC 0-5 SEEN Urine WBC 25-50 SEEN Ur Squamous Epith Cells 5-10 SEEN Ur Transition Epith Cell 0-5 SEEN Urine Bacteria 2+ Urine Mucus 0 SEEN Urine Opiates Screen NEGATIVE U Buprenorphine Qual NEGATIVE Ur Oxycodone Screen NEGATIVE Urine Methadone Screen NEGATIVE Urine Fentanyl Screen NEGATIVE Ur Barbiturates Screen NEGATIVE Ur Phencyclidine Scrn NEGATIVE Ur Amphetamines Screen NEGATIVE U Benzodiazepines Scrn PRESUMPTIVE POSITIVE Urine Cocaine Screen NEGATIVE U Cannabinoids Screen NEGATIVE Ethyl Alcohol < 10.1 ABG Data Attestation: I personally reviewed and interpreted this ABG as follows: Interpretation: ABG reveals an increased AA gradient. Patient's oxygen was increased to 4.5 L. pH is elevated slightly. Bicarb is slightly low. CO2 is elevated. This is a mixed acid-base picture. ABG results: ABG 01/08/25 16:58 Specimen Type ART Sample Site R BRACHIAL pH 7.46 H Bicarbonate Actual 21.1 L Total CO2 22 Base Excess -3 L O2 Saturation 91 L ABG pCO2 29.6 L ABG pO2 55 L Liter Flow 3.0 Radiography Chest X-Ray - ED: 1 View and Read by ED Physician (Patient is rotated. No obvious infiltrate or effusion. No mention of pneumothorax. Cardiac silhouetteis normal. Difficult to assess size. Osseous structures appear unremarkable. There is no evidence of pneumothorax. Independent review interpreted by me at 1719.) Diagnostic Testing: Clinical Impression(s) from Imaging Studies Brain CT 01/08/25 16:50 IMPRESSION: Slightly limited exam, without evidence of an acute intracranial abnormality. Senescent changes. Reading Location: [id number] Chest X-Ray 01/08/25 17:00 IMPRESSION: Slightly limited exam, without definite evidence of an acute cardiopulmonary abnormality. Reading Location: [id number] CT of the head was reviewed by me at 1700. There is no evidence of subdural hematoma, epidural hematoma, parenchymal contusion or subarachnoid hemorrhage. There is no fluid in the sinuses. There is no extracranial hematoma noted. EKG Initial EKG: Attestation: I personally reviewed and interpreted this EKG as follows: Interpretation: Sinus Tachycardia Management Discussion w/another healthcare provider: Hospitalist (Spoke to Dr. Vela. Due to the patient's complex that he and altered mental status and sepsis will admitto ICU) Treatment and Re-Evaluation Narrative: Since patient does not have a white count she was not started on antibiotics. If urine micro is suggestive of an infection we will treat with appropriate antibiotics. She has hives to penicillin and nausea to sulfa. Patient's heart rate has improved with IV fluids. She has had a drop in her blood pressure. Systolic and mean arterial are above 90 and 65 respectively. Uncertain why she is hypoxic. She may have aspirated. Since patient's heart rate and temperature improved with therapy suspect this isdue to environmental exposure with heat index of approximately 100. UA results were available and reviewed at 1849. UA is consistent with infection. Since patient has elevated lactate will obtain blood cultures x 2 and sent urine culture. Will obtain cultures prior to administration of levofloxacin. Discharge Plan Triage Chief Complaint: Alt LOC ED Provider: Issa Chapin Dx/Rx/DC Orders Clinical Impression: Acute alteration in mental status, HLD (hyperlipidemia), DM (diabetes mellitus), type 2, Acute dehydration, Acidosis, lactic, Elevated temperature, Sinus tachycardia seen on manager cardiac cath, [id number] kidney injury, Acutehypoxemic respiratory failure, History of COPD, Complicated urinary tract infection, Sepsis Primary Care Provider: Homer Bradford What to do if you have Problems For any increased pain, shortness of breath, bleeding, nausea or vomiting, chestpain, or any unexpected problems, contact your Primary Care Provider. Call [facility] ([phone]) or report to the closest Emergency Room. Call 911 if necessary. 01/08/251936 <Electronically signed by Issa Chapin MD> Cosigner Signature (if applicable): CC: Dr. Homer Bradford MD ~ Signed [facility] Work Phone: 1(278) 465-426406-24-2025 Evaluation note* Diagnosis Onset Date Resolution Status Admit Date Acidosis, lactic acute December 7:23pm Acute alteration in mental status acute January 08, 2025 7:23pm Acute dehydration acute January 082024 7:23pm Elevated temperature acute January 08, 2025 7:23pm Sinus tachycardia seen on manager cardiac cath acute January 08, 2025 7:23pm [id number] kidney injury chronic January 08, 2025 7:23pm DM (diabetes mellitus), type 2 chronic January 08, 2025 7:23pm HLD (hyperlipidemia) chronic January 08, 2025 7:23pm Acute hypoxemic respiratory failure resolved January 08, 2025 7:23pm Sepsis resolved January 08 7:23pm History of COPD inactive December 7:23pm Complicated urinary tract infection deleted January 08, 2025 7:23pm Decubitus ulcer of buttock, stage 1 acute 2025 9:56am Encounter for smoking cessation counseling acute 2025 9:56am Paroxysmal atrial fibrillation acute 2025 9:56am Smoking greater than 40 pack years acute 2025 9:56am Asthma-COPD overlap syndrome chronic 2025 9:56am Asthmatic bronchitis , chronic chronic 2025 9:56am Bipolar disorder chronic January 9:56am CKD (chronic kidney disease) stage 3, GFR 30-59 ml/min chronic January 152024 9:56am 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 mellitus chronic January 29 9:56am COPD (chronic obstructive pulmonary disease) chronic January 29 9:56am DM (diabetes mellitus), type 2 chronic 2025 9:56am HLD (hyperlipidemia) chronic 2025 9:56am Nicotine addiction chronic January 152024 9:56am Obesity, morbid, BMI 40.0-49.9 chronic 2025 9:56am Tardive dyskinesia chronic January 152024 9:56am Urinary incontinence chronic 2025 9:56am PVD (peripheral vascular disease) suspected 2025 9:56am Dyspnea chronic January 31 12:32pm Urge incontinence acute February 27, 2025 1:59pm Urinary tract infection noneactive A ugust 2024 1:59pm Overactive bladder acute March 11, 2025 11:16am Urge incontinence acute March 11, 2025 11:16am Urinary tract infection acute A ugust 2024 11:16am [facility] Work Phone: [phone]) 344-409906-24-2025 Radiology Diagnostic study [facility]06-24-2025 Radiology Diagnostic study [facility]06-24-2025 Discharge summary Author Issa Chapin [facility] Note Date/Time January 08, 2025 7:37 pm [facility] Medical Records Department [address] [place] [id number] Emergency Department Summary 01/08/25 MR#: [id number] Acct: [id number] Name: PERNELL RODRIGUEZ Rep #:[id number] : 1960 64 From: Issa Chapin MD PCP: Dr. Homer Bradford MD Status:ADM IN Location: ICU ICU09-1 HPI History of Present Illness Chief Complaint: Alt LOC Detail of Chief Complaint: [facility] Onset/Context/Timing Onset: - (Patient with altered mental status. Lives at the [facility]) Quality: Altered mental status, tachycardia, febrile and hypoxic Mechanism/Context: Yes other Current Severity: Severe Maximum Severity: Severe Worsened by: Poor p.o. intake, environmental exposure on Lexapro Associated Symptoms Associated Symptoms: abdominal pain Narrative Narrative: Patient is a 64-year-old woman. She has history of stage III kidney disease dueto type 1 diabetes, COPD with overlap with asthma, peripheral vascular disease, hyperlipidemia, bipolar affective disorder, BMI 46.8, tardive dyskinesia, nicotine addiction and history of paroxysmal atrial fibrillation. EKG that was transmitted from [employer] revealed a rate of 154 which raise concern for possible ability of atrial for flutter. EKG in the department shows a narrow complex tachycardia that I believe is sinus mechanism. QT is prolonged. There is nonseptic changes noted as well. [facility] Medical History Urinary tract infection History of echocardiogram Wears glasses Anxiety Depression Post-menopausal History of renal disease High cholesterol Back pain TIA (transient ischemic attack) Gastric reflux Smoker Shortness of breath on exertion History of pain when walking History of edema Cardiology follow-up encounter History of heart attack Chest pain History of left heart catheterization (LHC) (~12/30/20) CKD (chronic kidney disease) stage 3, GFR 30-59 ml/min Lung nodule COPD (chronic obstructive pulmonary disease) Paroxysmal atrial fibrillation Elevated liver enzymes Acute respiratory failure with hypoxia Stroke IBS (irritable bowel syndrome) Hyperlipidemia Heart disease Migraines Frequent headaches Gastrointestinal problem Diabetes History of back problems Asthma Arthritis Home Medications ?Medication ?Instructions ?Recorded ?Last Taken ?Type albuterol sulfate 90 mcg/actuation 2 puff inhalation Q 6H PRN 11/07/24 Unknown Rx aerosol inhaler shortness of breath or wheez ing #6.7 grams apixaban 5 mg tablet (Eliquis) 5 mg PO Q12 #60 tabs Unknown Rx citalopram 10 mg tablet 10 mg PO DAILY #30 tabs 10/17 10/09 Unknown Rx quetiapine 100 mg tablet 200 mg (2 x 100 mg) PO BID # 120 11/07/24 Unknown Rx tabs trazodone 100 mg tablet 200 mg (2 x 100 mg) PO QHS # 60 tabs 11/07/24 Unknown Rx lorazepam 0.5 mg tablet 0.5 mg PO Q12H PRN anxiety 0 11/14/24 Unknown History lovastatin 40 mg tablet 20 mg PO QHS 11/14/24 Unknow n History omeprazole 40 mg capsule,delayed 40 mg PO DAILY Unknown History release aspirin 81 mg capsule 81 mg PO DAILY 01/08/25 Unkn own History furosemide 20 mg tablet 20 mg PO BID 01/08/25 Unknow n History ipratropium 0.5 mg-albuterol 3 mg 3 ml inhalation Q20M PRN shortness 01/08/25 Unknown History (2.5 mg base)/3 mL nebulization of breath soln Allergy/AdvReac Type Severity Reaction Status Date / Time Penicillins Allergy Intermediate Hives Verified 01/08/25 16:28 carbamazepine (From Tegretol) AdvReac Intermediate Nausea Verified 01/08/25 16:28 benztropine AdvReac Unknown Verified 01/08/25 16:28 diazepam (From Valium) AdvReac Other Verified 01/08/25 16:28 Sulfa (Sulfonamide AdvReac Nausea Verified 01/08/25 16:28 Antibiotics) thioridazine AdvReac Nausea Verified 01/08/25 16:28 thioridazine HCl (From AdvReac Other Verified 01/08/25 16:28 Mellaril) Family History Grandmother Cancer stomach Father Cancer lung Sister Breast cancer Surgical History Hx of surgical procedure History of carpal tunnel surgery History of elbow surgery H/O shoulder surgery H/O hand surgery H/O dilation and curettage Hx of cholecystectomy History of tonsillectomy Social History household members: other details: Living in apt with friends, now moving out without home at discharge. housing: homeless Smoking Status: Heavy Smoker (>10/day) alcohol intake: never substance use type: does not use caffeine: Yes what type of physical activity do you participate in: walking seatbelt use: always do you feel safe at home: Yes ROS ROS ED Review of Systems ROS Unobtainable: due to mental status EXAM Physical Exam Const Vital Signs: 01/08/25 16:29 01/08/25 16:34 01/08/25 17:00 Temperature 103.3 F H 103.3 F H Temperature Source Axillary Oral Pulse Rate 144 H 142 H Respiratory Rate 18 20 H Blood Pressure 129/55 H 129/55 H Blood Pressure Mean 79 79 Pulse Ox 90 92 Oxygen Delivery Method Nasal Cannula Nasal Cannula Nasal Cannula Oxygen Flow Rate (L/min) 3 3 3 01/08/25 17:02 01/08/25 17:32 01/08/25 18:00 Temperature 102.1 F H 100.5 F H 99.2 F H Temperature Source Core Oral Core Pulse Rate 114 H 105 H 103 H Respiratory Rate 19 H 15 15 Blood Pressure 95/81 H 100/65 104/76 Blood Pressure Mean 85 76 85 Pulse Ox 94 93 95 Oxygen Delivery Method Nasal Cannula Nasal Cannula Nasal Cannula Oxygen Flow Rate (L/min) 3 3 3 01/08/25 18:30 01/08/25 19:00 01/08/25 19:30 Temperature 98.7 F 98.5 F 98.4 F Temperature Source Core Core Core Pulse Rate 96 95 94 Respiratory Rate 12 16 18 Blood Pressure 126/86 H 131/82 H 108/56 L Blood Pressure Mean 99 98 73 Pulse Ox 100 100 100 Oxygen Delivery Method Nasal Cannula Nasal Cannula Nasal Cannula Oxygen Flow Rate (L/min) 3 3 3 01/08/25 19:30 Temperature 98.4 F Temperature Source Pulse Rate 93 Respiratory Rate 18 Blood Pressure 108/56 L Blood Pressure Mean 73 Pulse Ox 100 Oxygen Delivery Method Oxygen Flow Rate (L/min) Positive well nourished, well developed and obese Constitutional Narrative: Patient sunburn. Altered mental status. Clinically dehydrated. General Appearance ED: well developed; Negative for pallor Nutritional Appearance: obese HEENT HEENT Narrative: Mucosa is dry. normocephalic and atraumatic; Negative for cyanosis of lips/distal nose Eyes PERRL and EOMs intact bilaterally General Eye ED: Negative for pale conjunctiva or scleral icterus Neck full ROM, no lymphadenopathy and supple Chest Wall Chest Narrative: Unremarkable. From the bra line up patient is sunburned. Resp Resp Narrative: Diminished breath sounds bilaterally with bibasilar rales. Cardio regular rhythm, S1 normal heart sound, S2 normal heart sound and no murmurs Rate: tachycardic GI non-tender, non-distended and no masses Inspection: Negative for abdominal distention Palpation: soft Extremity Extremity Narrative: There is no clubbing or cyanosis. Capillary fill is normal. Do not appreciate PT pulse either side. Neuro No oriented x3, CN's II-XII intact bilaterally and no sensory deficits noted Neuro Narrative: Patient is not awake. She is very slow to respond. She does not know her age. She does not know the month. She does know the year. Sensorium / Orientation: oriented to person, oriented to place and confused; Negative for alert Psych Negative for mental status grossly normal Skin General Skin Exam: Negative for jaundice or pallor Lesions: no lesions Rashes: no rashes Sepsis Attestation Sepsis Alert: Yes Date exam was performed: 01/08/25 Time exam was performed: 18:16 (Made aware of alert however no obvious source and there is other potential causes for her presentation.) Possible Source of Sepsis: Genitourinary Sepsis Organ Dysfunction Criteria Present: Lactic Acid > 2 mmol/L and New/Unexplained change in mental status Supportive Findings: Suspect this is due to environmental exposure unless her urine is indicative of infection. Time of this entry 1815. Fluid Resuscitation Fluid resuscitation indicated?: Yes Fluid Resuscitation ordered: 30 ml/kg fluid bolus ordered Amount of fluid ordered: 3,350 MDM MDM MDM Narrative Medical decision making narrative: Fact the patient was found down on Eliquis need to evaluate for intracranial bleed, need to evaluate for infectious and metabolic cause. There is also concern for heatstroke. Cooling blanket was applied. Patient had ice in her axillas and groin. History & Record Review Additional record(s) reviewed:: Prior outpatient record (22 page correspondence from outside facility was reviewed. Patient was admitted for failure to thrive and multiple other medical problems. Most recent med list was given to her primary care nurse. Will compare today's lab results to [facility] Prior ED visit and Prior labs Lab Data Attestation: I reviewed the patient's lab results. Lab results narrative: Comprehensive metabolic panel is remarkable for a BUN of 17 and a creatinine of 1.82. Baseline creatinine is 1.3. CBC is unremarkable. Coags are normal. Toxscreen is presumptive positive for benzos. Macro urine is positive for bilirubin, urobilinogen, leukoesterase, blood and negative for nitrites. Urine is slightly cloudy with a Cerva gravity of 1.02. Labs: Laboratory Results - last 24 hr 01/08/25 16:41 WBC 9.8 RBC 4.42 Hgb 13.5 Hct 41.1 MCV 93.0 MCH 30.5 MCHC 32.8 RDW Std Deviation 46.9 H RDW Coeff of Robert 13.7 Plt Count 245 MPV 10.5 Immature Gran % (Auto) 0.100 Neut % (Auto) 76.0 H Lymph % (Auto) 15.8 L Price % (Auto) 6.6 Eos % (Auto) 1.3 Baso % (Auto) 0.2 Absolute Neuts (auto) 7.4 Absolute Lymphs (auto) 1.55 Nucleated RBC % 0 PT 14.3 INR 1.1 APTT 27.1 Sodium 140 Potassium 3.4 Chloride 105 Carbon Dioxide 18.9 L Anion Gap 16 H BUN 17 Creatinine 1.82 H Estim Creat Clear Calc 38.69 L Est GFR (MDRD) Non-Af 31 L BUN/Creatinine Ratio 9.2 L Glucose 138 H Lactic Acid 3.9 H* Calcium 8.7 Total Bilirubin 0.39 AST 18 ALT 8 Alkaline Phosphatase 77 Total Protein 6.4 Albumin 3.7 Globulin 2.7 Albumin/Globulin Ratio 1.4 Lipase 22 Urine Color Yellow Urine Clarity Sl. Cloudy Urine pH 6.0 Ur Specific Boutte 1.020 Urine Protein 30 H Urine Glucose (UA) Normal Urine Ketones Negative Urine Occult Blood 25 H Urine Nitrite Negative Urine Bilirubin 1 H Urine Urobilinogen 1 H Ur Leukocyte Esterase 100 H Urine RBC 0-5 SEEN Urine WBC 25-50 SEEN Ur Squamous Epith Cells 5-10 SEEN Ur Transition Epith Cell 0-5 SEEN Urine Bacteria 2+ Urine Mucus 0 SEEN Urine Opiates Screen NEGATIVE U Buprenorphine Qual NEGATIVE Ur Oxycodone Screen NEGATIVE Urine Methadone Screen NEGATIVE Urine Fentanyl Screen NEGATIVE Ur Barbiturates Screen NEGATIVE Ur Phencyclidine Scrn NEGATIVE Ur Amphetamines Screen NEGATIVE U Benzodiazepines Scrn PRESUMPTIVE POSITIVE Urine Cocaine Screen NEGATIVE U Cannabinoids Screen NEGATIVE Ethyl Alcohol < 10.1 ABG Data Attestation: I personally reviewed and interpreted this ABG as follows: Interpretation: ABG reveals an increased AA gradient. Patient's oxygen was increased to 4.5 L. pH is elevated slightly. Bicarb is slightly low. CO2 is elevated. This is a mixed acid-base picture. ABG results: ABG 01/08/25 16:58 Specimen Type ART Sample Site R BRACHIAL pH 7.46 H Bicarbonate Actual 21.1 L Total CO2 22 Base Excess -3 L O2 Saturation 91 L ABG pCO2 29.6 L ABG pO2 55 L Liter Flow 3.0 Radiography Chest X-Ray - ED: 1 View and Read by ED Physician (Patient is rotated. No obvious infiltrate or effusion. No mention of pneumothorax. Cardiac silhouetteis normal. Difficult to assess size. Osseous structures appear unremarkable. There is no evidence of pneumothorax. Independent review interpreted by me at 1719.) Diagnostic Testing: Clinical Impression(s) from Imaging Studies Brain CT 01/08/25 16:50 IMPRESSION: Slightly limited exam, without evidence of an acute intracranial abnormality. Senescent changes. Reading Location: [id number] Chest X-Ray 01/08/25 17:00 IMPRESSION: Slightly limited exam, without definite evidence of an acute cardiopulmonary abnormality. Reading Location: [id number] CT of the head was reviewed by me at 1700. There is no evidence of subdural hematoma, epidural hematoma, parenchymal contusion or subarachnoid hemorrhage. There is no fluid in the sinuses. There is no extracranial hematoma noted. EKG Initial EKG: Attestation: I personally reviewed and interpreted this EKG as follows: Interpretation: Sinus Tachycardia Management Discussion w/another healthcare provider: Hospitalist (Spoke to Dr. Vela. Due to the patient's complex that he and altered mental status and sepsis will admitto ICU) Treatment and Re-Evaluation Narrative: Since patient does not have a white count she was not started on antibiotics. If urine micro is suggestive of an infection we will treat with appropriate antibiotics. She has hives to penicillin and nausea to sulfa. Patient's heart rate has improved with IV fluids. She has had a drop in her blood pressure. Systolic and mean arterial are above 90 and 65 respectively. Uncertain why she is hypoxic. She may have aspirated. Since patient's heart rate and temperature improved with therapy suspect this isdue to environmental exposure with heat index of approximately 100. UA results were available and reviewed at 1849. UA is consistent with infection. Since patient has elevated lactate will obtain blood cultures x 2 and sent urine culture. Will obtain cultures prior to administration of levofloxacin. Discharge Plan Triage Chief Complaint: Alt LOC ED Provider: Issa Chapin Dx/Rx/DC Orders Clinical Impression: Acute alteration in mental status, HLD (hyperlipidemia), DM (diabetes mellitus), type 2, Acute dehydration, Acidosis, lactic, Elevated temperature, Sinus tachycardia seen on manager cardiac cath, [id number] kidney injury, Acutehypoxemic respiratory failure, History of COPD, Complicated urinary tract infection, Sepsis Primary Care Provider: Homer Bradford What to do if you have Problems For any increased pain, shortness of breath, bleeding, nausea or vomiting, chestpain, or any unexpected problems, contact your Primary Care Provider. Call [facility] ([phone]) or report to the closest Emergency Room. Call 911 if necessary. 01/08/251936 <Electronically signed by Issa Chapin MD> Cosigner Signature (if applicable): CC: Dr. Homer Bradford MD ~ Signed [facility] Work Phone: [phone]) 649-361806-23-2025 Telephone encounter Note* Telephone Encounter - Mary Ann Rodriguez LPN - 01/07/2025 2:36 PM EDT The patient has been identified by name and date of : Yes, pharmacy Caregiver verified no other encounters exist for this prescription request: Yes Caregiver confirmed with patient/requestor that no other refills are due, in the near future, with this provider at this time: Yes The last office visit in the department: 12/18/2024 Does the patient have a future office visit with this provider/department: Yes 02/21/2025 Requested Prescriptions Pending Prescriptions Disp Refills lovastatin 40 mg tablet 90 tablet 1 Sig: TAKE 1 TABLET BY MOUTH DAILY AT BEDTIME. FOR CHOLESTEROL. Mary Ann Rodriguez LPN January 07, 2025 2:36 PM [facility]06-23-2025 Miscellaneous Notes* Telephone Encounter - Mary Ann Rodriguez LPN - 01/07/2025 2:36 PM EDT The patient has been identified by name and date of : Yes, pharmacy Caregiver verified no other encounters exist for this prescription request: Yes Caregiver confirmed with patient/requestor that no other refills are due, in the near future, with this provider at this time: Yes The last office visit in the department: 12/18/2024 Does the patient have a future office visit with this provider/department: Yes 02/21/2025 Requested Prescriptions Pending Prescriptions Disp Refills lovastatin 40 mg tablet 90 tablet 1 Sig: TAKE 1 TABLET BY MOUTH DAILY AT BEDTIME. FOR CHOLESTEROL. Mary Ann Rodriguez LPN January 07, 2025 2:36 PM [facility] Telephone encounter Note * Telephone Encounter - Jose Jarrell MA - 12/28/2024 11:53 AM EDT Attempted to reach pt, unable to reach and unable to LM. Letter being sent to pt to contact office regarding her recent lab results. Did not read [employer] message. Letter mailed to pt asking for a call back. Jose Jarrell MA [facility]06-13-2025 Miscellaneous Notes* Telephone Encounter - Jose Jarrell MA - 12/28/2024 11:53 AM EDT Attempted to reach pt, unable to reach and unable to LM. Letter being sent to pt to contact office regarding her recent lab results. Did not read [employer] message. Letter mailed to pt asking for a call back. Jose Jarrell MA * Telephone Encounter - Priyanka Chavez RN - 12/26/2024 8:35 AM EDT Attempted to contact patient. No answer and VM box is not set up. Please try contacting patient again. [employer] message with provider's response sent to patient as well. Priyanka Chavez RN * Telephone Encounter - Homer Bradford MD - 12/25/2024 5:31 PM EDT Let patient know A1c A1c was good at 5.9%. Her kidney functions are improved. Her lipid panel, electrolytes, B12, CBC and Mg were all ok. She needs to come in and complete her urine tests. * Telephone Encounter - Priyanka Chavez RN - 12/25/2024 2:12 PM EDT Patient requesting PCP to advise on recent lab results, when able. Priyanka Chavez RN documented in [facility] Telephone encounter Note * Telephone Encounter - Priyanka Chavez RN - 12/26/2024 8:35 AM EDT Attempted to contact patient. No answer and VM box is not set up. Please try contacting patient again. [employer] message with provider's response sent to patient as well. Priyanka Chavez RN [facility]06-10-2025 Telephone encounter Note* Telephone Encounter - Homer Bradford MD - 12/25/2024 5:31 PM EDT Let patient know A1c A1c was good at 5.9%. Her kidney functions are improved. Her lipid panel, electrolytes, B12, CBC and Mg were all ok. She needs to come in and complete her urine tests. [facility]-10-2025 Telephone encounter Note* Telephone Encounter - Priyanka Chavez RN - 12/25/2024 2:12 PM EDT Patient requesting PCP to advise on recent lab results, when able. Priyanka Chavez RN [facility]06-03-2025 History of Present illness Narrative* Homer Bradford MD - 12/18/2024 11:20 AM EDT Images from the original note were not included. Chief Complaint Patient presents with: Hospital Follow Up HPI Pernell Rodriguez is a 64 year old female who presents here today for Hospital Discharge Follow up.. Hospital 09/12/2024 through 09/21/2024 ER visit 11/04/2024 ER visit 11/12/2024 ER 11/14/2024: After each of these visits the Pernell was instructed to f/u with PCP and never did. The nodule in the right upper lobe was new compared to a known lung nodule on the left. Patient has not see cardio in the past 2-3 years, Pulmonary in the past 3-4 years. 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 Pernell is a 64-year-old female with a history of multiple chronic conditions, including cardiovascular and pulmonary issues, presenting for follow-up after several hospitalizations and a period of homelessness. She is accompanied by her caregiver, who is providing history on her behalf. Pernell has been living on the streets and has had multiple hospitalizations in the past few months. She was first admitted to [facility] on 09/12/2023, after returning from [place], for a blood clot and was discharged with a 30-day prescription for Eliquis. She has not followed up with her primary care physician or specialists since then and has been off Eliquis for 2-3 months. 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 She has been living with a friend temporarily but does not have a permanent place to live and is technically still homeless. 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 She has been experiencing anxiety and panic attacks and has beenrelying on her caregiver for support. She has not been taking her medications regularly and has been missing doctor's appointments. She has been experiencing swelling in her legs, coughing, and difficulty walking. She has also been experiencing lumps in her neck and collarbones. She has not been experiencing chest pain, heartburn, or discomfort when urinating. She has not been experiencing seizures or tremors. She has been experiencing pain in her shoulder and has not been able to do physical therapy exercises. She has been experiencing memory loss and difficulty remembering appointments. Shehas been experiencing skin irritation and breakdown due to incontinence and obesity. She has been experiencing difficulty tolerating heat and cold. She has not been experiencing symptoms of low bloodsugar or passing out. She has been experiencing difficulty breathing and has not been using a nebulizer. She has been experiencing difficulty sleeping and has been using a walker. She has been experiencing difficulty managing her finances and has been relying on her caregiver for support. She has been experiencing difficulty managing her medications and has been relying on her caregiver for support. She has been experiencing difficulty managing her appointments and has been relying on her caregiver for support. She has been experiencing difficulty managing her living situation and has been relying on her caregiver for support. She has been experiencing difficulty managing her health and hasbeen relying on her caregiver for support. Past medical history, appointments, medications, allergies reviewed. Previous Medical History PAST MEDICAL HISTORY Diagnosis Date ASHD (arteriosclerotic heart disease) 10/25/[address] Goins Bilateral leg edema 04/25/2015 Bipolar affective disorder (HCC) 04/25/[address] Colindres Chest pain 02/14/[address] Jacob in [facility]. Had a normal cardiac CTA in 2009 with no calcium. Chronic back pain greater than 3 months duration 04/02/2015 Chronic insomnia 03/12/2020 Ilya Calderón ([facility]) on melatonin. Chronic obstructive pulmonary disease (HCC) 04/25/2015 Chronic pain 01/14/2014 Constipation 02/12/2014 [place] or callus 11/16/2015 Current use of proton pump inhibitor 10/11/2017 CVA (cerebral infarction) 01/14/2014 Diabetic eye exam ([facility]) 01/14/[address] Sanchez last done 03/02/2019 Diabetic foot ([facility]) 01/14/[address] Martins Extrapyramidal reaction 01/14/2014 Gastroesophageal reflux disease without esophagitis 04/25/2015 History of CVA (cerebrovascular accident) 04/25/[address] Ilya Calderón ([facility]) Hives 01/14/2014 Hypotension 01/14/2014 Sees Ilya Calderón ([facility]) and has her on fludrocortisone Incontinence of feces 07/08/2017 Irritable bowel syndrome with both constipation and diarrhea 04/28/2017 Low back pain 01/14/2014 Low vitamin B12 level 07/16/2022 Lumbosacral neuritis 04/16/2014 Major depressive disorder, recurrent episode, moderate (HCC) 04/25/2015 On disability Migraine without aura and without status migrainosus, not intractable 04/28/[address] Calderón Mixed hyperlipidemia 01/14/2014 Mixed incontinence urge and stress (male)(female) 07/25/2018 Morbid obesity due to excess calories (HCC) 10/27/2016 Muscle weakness (generalized) 07/25/2018 Myofascial pain 04/16/2014 Nodule of left lung 12/17/2015 CT 09/2018 still stable, no further CT's needed. Seen on CT of abd/pelv 11/2015. 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 Physical deconditioning 04/02/2015 PMH - PAST MEDICAL HISTORY OF ovarian cysts PMH - PAST MEDICAL HISTORY OF bladder tipped, has incontience PMH - PAST MEDICAL HISTORY OF irregular heart beat Smoker 11/20/2020 Started age 15 at 1.5 PPD Stage 3b chronic kidney disease (HCC) 11/24/2020 Tardive dyskinesia 03/12/2020 Ilya Calderón ([facility]) Type 2 diabetes mellitus with stage 3b chronic kidney disease (HCC) 04/25/2015 Type 2 diabetes mellitus without complication (HCC) 04/25/2015 Urinary incontinence 07/08/2017 Well adult exam 10/27/2016 last done: 06/09/2022 Previous Surgical History PAST SURGICAL HISTORY Procedure Laterality Date *STRESS TEST PC 05/06/2016 WNL 2D ECHO (EXEP) 01/14/2014 EF=65% Trival [place], TI, PI, LA enlarged. CARPAL TUNNEL Bilateral 08/28 and 09/25 COLONOSCOPY FLX DX W/COLLJ SPEC WHEN PFRMD 2011 tahir baron Colonoscopy, no polyps repeat 10 yrs CRYOCAUTERY OF CERVIX or twice DILATION & CURETTAGE DX&/THER NONOBSTETRIC Dilation & curettage ESOPHAGOGASTRODUODENOSCOPY TRANSORAL DIAGNOSTIC EGD LIG/TRNSXJ FLP TUBE ABDL/VAG APPR UNI/BI Tubal ligation PAST SURGICAL HISTORY OF 07/2015 had left medial elbow sugery but can't explain for what. PAST SURGICAL HISTORY OF Right 2012 repair rotator cuff and bone spurs PAST SURGICAL HISTORY OF 09/09/2020 bladder interstim for overactive bladder per Dr. Alba PAST SURGICAL HISTORY OF cholecystectomy PT ED UROLOGY 08/2020 IPG Family History FAMILY HISTORY Problem Relation Age of Onset Hypertension Mother Diabetes Mother other (hysterectomy) Mother fibroids other (hysterectomy) Maternal Grandmother fibroids Heart Son irregular heart beat Cancer Paternal Aunt No Ocular Disease No Family History Patient Allergies ALLERGIES Allergen Reactions Penicillins Hives Tetanus, Diphtheria* Swelling local reaction Aspirin Unknown Benztropine Unknown Diazepam Unknown Imodium [Loperamide] Other: See Comments Chest pain Mellaril [Thioridaz* GI Upset Pneumovax 23 [Pneum* Intolerance Sulfa (Sulfonamide * GI Upset Causes vomiting and rash Tegretol [Carbamaze* GI Upset Current Medications Current Outpatient Medications on File Prior to Visit Medication Sig MEDICAL SUPPLY Adult Size Pull On XXL/Bariatric needs 6 a day, Dx: N39.46, R15.9 and M62.81 omeprazole (PRILOSEC) 40 mg capsule Take 1 capsule by mouth once daily. hyoscyamine SR (LEVBID) 0.375 mg 12 hr tablet Take 1 tablet by mouth two times a day. lovastatin 40 mg tablet TAKE 1 TABLET BY MOUTH DAILY AT BEDTIME. FOR CHOLESTEROL. MEDICAL SUPPLY Please replace pull up every 1.5-2 hrs while awake and 1-3 times a night to reduce risk of skin break down and secondary infections. #240 a month Dx: N39.46 and R15.9 traZODone (DESYREL) 100 mg tablet 1 tablet daily at bedtime. Per psych: Dr. Alvarez, not on as of 11/16/2023 ipratropium-albuterol (DUONEB) 0.5 mg-3 mg(2.5 mg base)/3 mL nebu Inhale 3 mL as instructed every 3hours as needed for wheezing/shortness of breath. For SOB related to ACUTE RESPIRATORY FAILURE WITHHYPOXIA (J96.01) while awake, Dr. Dallin Christopher: Pulm. not on as of 11/16/2023 rimegepant (NURTEC ODT) 75 mg disintegrating tablet Take 1 tablet by mouth once daily as needed. Per Neuro, not on as of 11/16/2023 cyanocobalamin (VITAMIN B-12) 500 mcg tablet Take 1 tablet by mouth once daily. not on as of 11/16/2023 amantadine HCl (SYMMETREL) 100 mg capsule Take 1 capsule by mouth two times a day. Per Neuro, Dr. Calderón, not on as of 11/16/2023 fludrocortisone (FLORINEF) 0.1 mg tablet Take 1 tablet by mouth once daily. Per Neuro, Dr. Calderón, not on as of 11/16/2023 QUEtiapine ER (SEROQUEL XR) 200 mg 24 hr tablet Take 1 tablet by mouth two times a day. Per psych, Dr. Negrete, not on as of 11/16/2023 citalopram hydrobromide (CELEXA) 10 mg tablet Take 1 tablet by mouth once daily. Per psych, Dr. Negrete, albuterol HFA (VENTOLIN HFA) 90 mcg/actuation inhaler INHALE 2 PUFFS INSTRUCTED EVERY FOUR HOURSAS NEEDED. Dr. Christopher: Pulm furosemide (LASIX) 20 mg tablet Take 1 tablet by mouth two times a day. Per Rajani Fish: cadio spironolactone (ALDACTONE) 25 mg tablet Take 1 tablet by mouth once daily. Per Rajani Fish: cardio melatonin (MELATIN ORAL) Take by mouth as directed. nitroglycerin sublingual (NITROQUICK) 0.4 mg SL tablet Dissolve 1 tablet under the tongue every 5 minutes as needed for chest pain. apixaban (ELIQUIS) 5 mg tab(s) Take 1 tablet by mouth twice daily. Per Cardio Fish COMPOUNDED PRESCRIPTION Adult diapers size XL Change diaper up to seven times a day. # 210 diapers With 5 refills Dx: R32 and R15.9 omega-3 fatty acids 1,000 mg cap Take 2 capsules by mouth once daily. No current facility-administered medications on file prior to visit. Social History Social History Tobacco Use Smoking status: Every Day Current packs/day: 2.00 Average packs/day: 2.0 packs/day for 50.0 years (100.0 ttl pk-yrs) Types: Cigarettes Smokeless tobacco: Never Tobacco comments: 1.5 to 2 packs/day Vaping Use Vaping status: Never Used Substance Use Topics Alcohol use: No Drug use: No Review of Symptoms REVIEW OF SYSTEMS GENERAL: No unintentional weight loss, malaise or fevers NECK: Negative for lumps, goiter, pain and significant neck swelling RESPIRATORY: Negative for, hemoptysis, wheezing, COPD, dyspnea or shortness of breath. Has a dry cough CARDIOVASCULAR: Negative for chest pain, hypertension, CHF or palpitations. + leg swelling GI: No nausea, vomiting, or diarrhea and No heartburn or reflux symptoms : No history of dysuria, only urinates a little at a time. Still having incontinence. Does have the new pull ups and her skin is no longer getting irritated. PSYCH: ENDOCRINE: Negative for cold or heat intolerance, symptoms of low BS's NEURO: No history of headaches, syncope, paralysis, seizures or tremors Muscle: has chronic pain in the left shoulder. SEE HPI EXAM: BP 104/70 Pulse 87 Resp 18 Wt 114.8 kg (253 lb) LMP 02/22/2006 SpO2 94% BMI 45.11 kg/m Last 5 Encounter Wt Readings: Date: Wt: 12/18/2024 114.8 kg (253 lb) 03/22/2024 121.6 kg (268 lb) 11/14/2023 121.6 kg (268 lb) 09/27/2023 120.7 kg (266 lb) 03/11/2023 122.5 kg (270 lb) General Appearance: Well appearing, alert, in no acute distress, well-hydrated, well nourished. andMorbidly obese. Neck: Supple, no adenopathy; thyroid symmetric, normal size, no bruits. Lungs: No rhonchi, rales. Mild end inspiratory wheezing. Heart: RRR without murmur, gallop, or rubs. No ectopy. Abdomen: Normal abdominal exam, Abdomen soft, non-tender. Bowel sounds normal. No masses, organomegaly. Extremities: No deformities, skin discoloration. Good capillary refill. Mld bilateral pitting edema.. Peripheral Pulses: Normal. Neurologic: Gait normal. Crainal nerves 2-2 grossly intact and sensation to light touch intact.. Health Maintenance List Anxiety Screening Never done Shingrix Vaccine(1 of 2) Never done Pneumococcal Vaccine: 50+(2 of 2 - PCV) due on 07/18/2012 RSV Vaccine(1 - Risk 60-74 years 1-dose series) Never done Cervical Cancer Screening due on 05/22/2023 Dilated Retinal Exam due on 01/05/2024 Covid-19 Vaccine(2023- season) Never done HbA1C due on 09/19/2024 Urine Albumin:Creatinine Ratio due on 09/26/2024 Mammogram Screening due on 12/21/2024 Colorectal Cancer Screening due on 03/18/2025 LDL Cholesterol due on 03/22/2025 Diabetic Foot Exam due on 03/22/2025 Serum Creatinine due on 03/22/2025 Annual PCP Team Chronic Disease Visit due on 12/18/2025 Hemoglobin/Hematocrit due on 12/18/2025 Hepatitis C Screening Completed HIV Screening Completed DTaP,Tdap,Td Vaccine Discontinued Lung Cancer Screening Discontinued Influenza Vaccine Discontinued Data reviewed Assessment and Plan 1. Type 2 diabetes mellitus with stage 3b chronic kidney disease, without long- term current use of insulin ([facility]) (E11.22) Stage 3b chronic kidney disease ([facility]) (N18.32) Patient has not been following up with specialists, including nephrology. No recent lab work available to assess current renal function. - Referral to nephrology (Dr. St) for management of CKD. - Monitor renal function with appropriate lab tests. - check CMP, Lipid, A1c, UA, Urine Micro albumin, CBC 2. Diabetic eye exam ([facility]) (Z01.00) No recent eye exam performed. - Referral to ophthalmology for diabetic eye exam. 3. Mixed hyperlipidemia (E78.2) Patient has not been following up with cardiology for management. - Referral to cardiology (Dr. Goins) for management. check CMP, Lipid, UA, 4. History of CVA (cerebrovascular accident) (Z86.73) Patient has a history of CVA and has not been on anticoagulation therapy (Eliquis) for 2-3 months. - will need Eliquis therapyReinitiated . - Referral to neurology (Dr. Calderón) for further management. 5. Chronic obstructive pulmonary disease, unspecified COPD type ([facility]) (J44.9) Nodule of left lung (R91.1) Patient has not been following up with pulmonology. Reports coughing but no sputum production. - Referral to pulmonology (Dr. Dallin Christopher) for management. 6. Chronic insomnia (F51.04) Ongoing issues with insomnia. Managed per Psych. - Discussed with patient the importance of regular follow-up with mental health services. 7. Migraine without aura and without status migrainosus, not intractable (G43.009) No recent follow-up or management. - Referral to neurology (Dr. Calderón) for management. 8. Tardive dyskinesia (G24.01) Previously managed with amantadine, but patient has not been taking medication or following up withneurology. - Referral to neurology (Dr. Calderón) for management. 9. Hypotension, unspecified hypotension type (I95.9) Previously managed with Florinef, but patient has not been taking medication or following up with neurology. - Referral to neurology (Dr. Calderón) for management. 10. Gastroesophageal reflux disease without esophagitis (K21.9) Patient denies current symptoms of heartburn. cont PPI check Mg and B12 11. ASHD (arteriosclerotic heart disease) (I25.10) Paroxysmal atrial fibrillation (HCC) (I48.0) Patient has not been following up with cardiology. Has not been on anticoagulation therapy (Eliquis) for 2-3 months. - Referral to cardiology (Dr. Goins) for management and Reinitiate Eliquis therapy. - check Lipid 12. Bilateral leg edema (R60.0) Edema likely secondary to heart failure and discontinuation of diuretics. - Refill furosemide and spironolactone temporarily. - Referral to cardiology (Dr. Goins) for management. 13. Bipolar affective disorder, remission status unspecified (HCC) (F31.9) Major depressive disorder, recurrent episode, moderate (HCC) (F33.1) Patient has been following up with mental health services with Dr. Negrete. 14. Low vitamin B12 l, evel (R79.89) No recent lab work available to assess current B12 levels. - Monitor B12 levels with appropriate lab tests. 15. Obesity, Class III, BMI 40-49.9 (morbid obesity) (E66.813) Contributing to skin breakdown and secondary infections. - Educated patient on the importance of weight management. 16. Smoker (F17.200) Patient continues to smoke. - Advised smoking cessation. 17. Mixed incontinence urge and stress (male)(female) (N39.46) Patient experiencing urinary incontinence. - Referral to urology (Dr. Melgoza) for management. - continued need for pull-ups 18. Medication management (Z79.899) Patient has not been taking prescribed medications regularly and has not been following up with specialists. - Refill furosemide and spironolactone temporarily. - Referral to appropriate specialists for management of chronic conditions and to restart her on the medications they had been mamaging. - Discussed the importance of medication adherence and regular follow-up with specialists. Requested Prescriptions Signed Prescriptions Disp Refills spironolactone (ALDACTONE) 25 mg tablet 30 tablet 1 Sig: Take 1 tablet by mouth once daily. To get her to her appt with cardio furosemide (LASIX) 20 mg tablet 60 tablet 1 Sig: Take 1 tablet by mouth two times a day. To get her to her appt with cardio nitroglycerin sublingual (NITROQUICK) 0.4 mg SL tablet 25 tablet 1 Sig: Dissolve 1 tablet under the tongue every 5 minutes as needed for chest pain. Did spent time with patient advising her that she has not been doing a good job with managing her chronic health issues due to her being homeless and therefore non-compliant with f/u. Explained to her it would be in her best interests to either move into a shelter facility or assisted living facility where she would have a place to live, get meals, attend to her hygiene, be able to get her meds and help manage her f/u with specialists. I informed her that if she continue down her current road that there ws a good change should would from this. Patient was still very resistant to any placement. I spent a total of 105 minutes on the date of the service which included preparing to see the patient, [id number]-[id number] patient care, completing clinical documentation, performing a medically appropriateexamination, counseling and educating the patient/family/caregiver and ordering medications, tests,or procedures. Recording using Zapa software for draft documentation of the visit was discussed with the patient/authorized school admissions representative; all questions welcomed and answered. Patient/authorized school admissions representative agreed to proceed documented in this encounterMer[facility] NoteHNO ID: [id number] Author: HOMER BRADFORD MD Service: ? Author Type: Physician Type: Progress Notes Filed: 12/18/2024 21:43 Note Text: Chief Complaint Patient presents with: Hospital Follow Up HPI Pernell Rodriguez is a 64 year old female who presents here today for Hospital Discharge Follow up.. Hospital 09/12/2024 through 09/21/2024 ER visit 11/04/2024 ER visit 11/12/2024 ER 11/14/2024: After each of these visits the Pernell was instructed to f/u with PCP and never did. The nodule in the right upper lobe was new compared to a known lung nodule on the left. Patient has not see cardio in the past 2-3 years, Pulmonary in the past 3-4 years. 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 Pernell is a 64-year-old female with a history of multiple chronic conditions, including cardiovascular and pulmonary issues, presenting for follow-up after several hospitalizations and a period of homelessness. She is accompanied by her caregiver, who is providing history on her behalf. Pernell has been living on the streets and has had multiple hospitalizations in the past few months. She was first admitted to [facility] on 09/12/2023, after returning from [place], for a blood clot and was discharged with a 30-day prescription for Eliquis. She has not followed up with her primary care physician or specialists since then and has been off Eliquis for 2-3 months. 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 She has been living with a friend temporarily but does not have a permanent place to live and is technically still homeless. 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 She has been experiencing anxiety and panic attacks and has been relying on her caregiver for support. She has not been taking her medications regularly and has been missing doctor's appointments. She has been experiencing swelling in her legs, coughing, and difficulty walking. She has also been experiencing lumps in her neck and collarbones. She has not been experiencing chest pain, heartburn, or discomfort when urinating. She has not been experiencing seizures or tremors. She has been experiencing pain in her shoulder and has not been able to do physical therapy exercises. She has been experiencing memory loss and difficulty remembering appointments. She has been experiencing skin irritation and breakdown due to incontinence and obesity. She has been experiencing difficulty tolerating heat and cold. She has not been experiencing symptoms of low blood sugar or passing out. She has been experiencing difficulty breathing and has not been using a nebulizer. She has been experiencing difficulty sleeping and has been using a walker. She has been experiencing difficulty managing her finances and has been relying on her caregiver for support. She has been experiencing difficulty managing her medications and has been relying on her caregiver for support. She has been experiencing difficulty managing her appointments and has been relying on her caregiver for support. She has been experiencing difficulty managing her living situation and has been relying on her caregiver for support. She has been experiencing difficulty managing her health and has been relying on her caregiver for support. Past medical history, appointments, medications, allergies reviewed. Previous Medical History PAST MEDICAL HISTORY Diagnosis Date ASHD (arteriosclerotic heart disease) 10/25/[address] Goins Bilateral leg edema 04/25/2015 Bipolar affective disorder (HCC) 04/25/[address] Colindres Chest pain 02/14/[address] Jacob in [facility]. Had a normal cardiac CTA in 2009 with no calcium. Chronic back pain greater than 3 months duration 04/02/2015 Chronic insomnia 03/12/2020 Ilya Calderón ([facility]) on melatonin. Chronic obstructive pulmonary disease (HCC) 04/25/2015 Chronic pain 01/14/2014 Constipation 02/12/2014 [place] or callus 11/16/2015 Current use of proton pump inhibitor 10/11/2017 CVA (cerebral infarction) 01/14/2014 Diabetic eye exam ([facility]) 01/14/[address] Sanchez last done 03/02/2019 Diabetic foot ([facility]) 01/14/[address] Martins Extrapyramidal reaction 01/14/2014 Gastroesophageal reflux disease without esophagitis 04/25/2015 History of CVA (cerebrovascular accident) 04/25/[address] Ilya Calderón ([facility]) Hives 01/14/2014 Hypotension 01/14/2014 Sees Ilya Calderón ([facility]) and has her on fludrocortisone Incontinence of feces 07/08/2017 Irritable bowel syndrome with both constipation and diarrhea 04/28/2017 Low back pain 01/14/2014 Low vitamin B12 level 07/16/2022 Lumbosacr (more content not included)...[facility]05-27-2025 Telephone encounter Note* Telephone Encounter - Brianne Graves RN - 12/11/2024 1:56 PM EDT Pt calling in to check on status of order. Let her know order was faxed this morning. Pt states shewill since order has been sent. [facility]05-27-2025 Miscellaneous Notes* Telephone Encounter - Brianne Graves RN - 12/11/2024 1:56 PM EDT Pt calling in to check on status of order. Let her know order was faxed this morning. Pt states shewill since order has been sent. * Telephone Encounter - Rajani Granger MA - 12/11/2024 11:32 AM EDT Attempted to contact patient to let her know order for pull ups has been faxed. Faxed order. Rajani Granger MA * Telephone Encounter - Homer Bradford MD - 12/11/2024 11:03 AM EDT Order ready to be faxed. * Telephone Encounter - Rajani Granger MA - 12/11/2024 9:44 AM EDT Spoke with patient today and she will be out soon. Please file order. Rajani Granger MA * Telephone Encounter - Shanti Monreal RN - 12/07/2024 4:12 PM EDT She is asking for the XXL. Shanti Monreal RN * Telephone Encounter - Homer Bradford MD - 12/07/2024 3:59 PM EDT So patient's past scripts have been for size XXL. Is she wanting just XL * Telephone Encounter - Shanti Monreal RN - 12/07/2024 2:43 PM EDT Pernell calls to report that she needs an order for incontinence supplies (2 XL pull ups) faxed to [facility] at [phone]. Patient reports that the full size briefs are bulky and causing too much skin irritation. Patient has an appointment on 12/11/2024 but reports she needs pull ups ordered today. Please review and advise, Shanti Monreal RN documented in this encounterMer[facility]05-27-2025 Telephone encounter Note * Telephone Encounter - Rajani Granger MA - 12/11/2024 11:32 AM EDT Attempted to contact patient to let her know order for pull ups has been faxed. Faxed order. Rajani Granger MA [facility]05-27-2025 Telephone encounter Note* Telephone Encounter - Homer Bradford MD - 12/11/2024 11:03 AM EDT Order ready to be faxed. [facility]05-27-[facility] Telephone encounter Note* Telephone Encounter - Rajani Granger MA - 12/11/2024 9:44 AM EDT Spoke with patient today and she will be out soon. Please file order. Rajani Granger MA [facility]05-23-2025 Telephone encounter Note* Telephone Encounter - Shanti Monreal RN - 12/07/2024 4:12 PM EDT She is asking for the XXL. Shanti Monreal RN [facility]05-23-2025 Telephone encounter Note* Telephone Encounter - Homer Brdaford MD - 12/07/2024 3:59 PM EDT So patient's past scripts have been for size XXL. Is she wanting just XL [facility]05-23-2025 Telephone encounter Note* Telephone Encounter - Shanti Monreal RN - 12/07/2024 2:43 PM EDT Pernell calls to report that she needs an order for incontinence supplies (2 XL pull ups) faxed to [facility] at [phone]. Patient reports that the full size briefs are bulky and causing too much skin irritation. Patient has an appointment on 12/11/2024 but reports she needs pull ups ordered today. Please review and advise, Shanti Monreal RN [facility]05-15-2025 NoteHNO ID: [id number] Author: RAJANI GRANGER MA Service: ? Author Type: Supervisor Matrix Type: Progress Notes Filed: 11/29/2024 09:36 Note Text: Scan on 11/14/2024 1:05 PM by Provider, External, PA-C: Consultation - Emergency Medicine Rajani Granger [facility]05-15-2025 History of Present illness Narrative* Rajani Granger MA - 11/29/2024 9:36 AM EDT Scan on 11/14/2024 1:05 PM by ProviderGita PA-C: Consultation - Emergency Medicine Rajani Granger MA documented in this encounterMercy [facility]04-29-2025 History of Present illness Narrative* Rajani rGanger MA - 11/13/2024 11:37 AM EDT Scan on 11/12/2024 5:37 AM by Gita Curtis PA-C: Consultation - Emergency Medicine We do not currently have a working number for the patient to schedule a hospital Follow up. Patientin hospital from 11/04 - 11/07. She is currently homeless. Rajani Granger MA documented in this encounterMercy [facility]04-29-2025 NoteHNO ID: [id number] Author: RAJANI GRANGER MA Service: ? Author Type: Supervisor Matrix Type: Progress Notes Filed: 11/13/2024 11:41 Note Text: Scan on 11/12/2024 5:37 AM by ProviderGita PA-C: Consultation - Emergency Medicine We do not currently have a working number for the patient to schedule a hospital Follow up. Patient in hospital from 11/04 - 11/07. She is currently homeless. Rajani Granger [facility]04-25-2025 NoteHNO ID: [id number] Author: CAROL ARMENTA MA Service: ? Author Type: Supervisor Matrix Type: Progress Notes Filed: 11/11/2024 16:13 Note Text: Pt discharged from [facility] Scan on 11/08/2024 8:56 AM by ProviderGita, PA-C: [facility]04-23-2025 [facility]04-21-2025 NoteHNO ID: [id number] Author: ASPEN BELL LPN Service: ? Author Type: LICENSED NURSE Type: Progress Notes Filed: 11/05/2024 08:17 Note Text: Scan on 11/04/2024 3:26 PM by ProviderGita PA-C: Consultation - Emergency Medicine Scan on 11/04/2024 3:10 PM by Gita Curtis [facility]Cl[facility] History of Present illness Narrative* Aspen Bell LPN - 11/05/2024 7:52 AM EDT Scan on 11/04/2024 3:26 PM by Gita Curtis PA-C: Consultation - Emergency Medicine Scan on 11/04/2024 3:10 PM by Gita Curtis PA-C documented in this encounterMercy [facility]04-20-2025 Evaluation note* Diagnosis Onset Date Resolution Status Admit Date Urinary tract infection inactive A pril 2024 2:30pm Acidosis, lactic acute December 7:23pm Acute alteration in mental status acute January 08, 2025 7:23pm Acute dehydration acute January 082024 7:23pm Elevated temperature acute January 08, 2025 7:23pm Sinus tachycardia seen on manager cardiac cath acute January 08, 2025 7:23pm Cqxxf-aa-[id number] kidney injury chron ic January 08, 2025 7:23pm DM (diabetes mellitus), type 2 chron ic January 08, 2025 7:23pm HLD (hyperlipidemia) chronic January 08, 2025 7:23pm Acute hypoxemic respiratory failure resolved January 08, 2025 7:23pm Sepsis resolved January 08 7:23pm History of COPD inactive December 7:23pm Complicated urinary tract infection deleted January 08, 2025 7:23pm Decubitus ulcer of buttock, stage 1 acute 2025 9:56am Encounter for smoking cessation counseling acute 2025 9:56am Paroxysmal atrial fibrillation acute 2025 9:56am Smoking greater than 40 pack years acute 2025 9:56am Asthma-COPD overlap syndrome chronic 2025 9:56am Asthmatic bronchitis , chronic chron ic 2025 9:56am Bipolar disorder chronic January 9:56am CKD (chronic kidney disease) stage 3, GFR 30-59 ml/min chronic January 152024 9:56am 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 mellitus chronic January 29 9:56am COPD (chronic obstructive pulmonary disease) chronic January 29 9:56am DM (diabetes mellitus), type 2 chron ic 2025 9:56am HLD (hyperlipidemia) chronic 2025 9:56am Nicotine addiction chronic January 152024 9:56am Obesity, morbid, BMI 40.0-49.9 chron ic 2025 9:56am Tardive dyskinesia chronic January 152024 9:56am Urinary incontinence chronic 2025 9:56am PVD (peripheral vascular disease) suspected 2025 9:56am Dyspnea chronic January 31 12:32pm [facility] Work Phone: 1(393) 545-766304-20-2025 Evaluation note* Diagnosis Onset Date Resolution Status Admit Date Urinary tract infection inactive A pril 2024 2:30pm Acidosis, lactic acute December 7:23pm Acute alteration in mental status acute January 08, 2025 7:23pm Acute dehydration acute January 082024 7:23pm Elevated temperature acute January 08, 2025 7:23pm Sinus tachycardia seen on manager cardiac cath acute January 08, 2025 7:23pm Dzvcd-fy-yfldhwk kidney injury chronic January 08, 2025 7:23pm DM (diabetes mellitus), type 2 chronic January 08, 2025 7:23pm HLD (hyperlipidemia) chronic January 08, 2025 7:23pm Acute hypoxemic respiratory failure resolved January 08, 2025 7:23pm Sepsis resolved January 08 7:23pm History of COPD inactive December 7:23pm Complicated urinary tract infection deleted January 08, 2025 7:23pm Decubitus ulcer of buttock, stage 1 acute 2025 9:56am Encounter for smoking cessation counseling acute 2025 9:56am Paroxysmal atrial fibrillation acute 2025 9:56am Smoking greater than 40 pack years acute 2025 9:56am Asthma-COPD overlap syndrome chronic 2025 9:56am Asthmatic bronchitis , chronic chronic 2025 9:56am Bipolar disorder chronic January 9:56am CKD (chronic kidney disease) stage 3, GFR 30-59 ml/min chronic January 152024 9:56am 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 mellitus chronic January 29 9:56am COPD (chronic obstructive pulmonary disease) chronic January 29 9:56am DM (diabetes mellitus), type 2 chronic 2025 9:56am HLD (hyperlipidemia) chronic 2025 9:56am Nicotine addiction chronic January 152024 9:56am Obesity, morbid, BMI 40.0-49.9 chronic 2025 9:56am Tardive dyskinesia chronic January 152024 9:56am Urinary incontinence chronic 2025 9:56am PVD (peripheral vascular disease) suspected 2025 9:56am Dyspnea chronic January 31 12:32pm Urge incontinence acute February 27, 2025 1:59pm Urinary tract infection noneactive A ugust 2024 1:59pm [facility] Work Phone: 1(323) 214-502604-20-2025 Discharge summary [facility] Medical Records Department [address] [place] [id number] Emergency Department Summary 11/04/24 MR#: [id number] Acct: [id number] Name: PERNELL RODRIGUEZ Rep #:[id number] : 1960 64 From: Rebecca MAY PCP: Dr. Homer Bradford MD Status:REG ER Location: ED HPI History of Present Illness Chief Complaint: Weakness Narrative Narrative: Patient presenting today due to failure to thrive. She is currently living withfriends who are moving out of the house they have been staying at today, she will not have any place to stay once they leave. She has been unable to take care of herself over the last several weeks as she cannot stand updue to weakness and pain in her legs. The people she is staying with have to help her stand up so that she can change her briefs, but she does not change them regularly and has not been changed sincelast night. She admits that she has not had a bath in about 2 weeks. She has a PMH of COPD, CKD, T2DM, bipolar disorder. [facility] Medical History History of echocardiogram Wears glasses Anxiety Depression Post-menopausal History of renal disease High cholesterol Back pain TIA (transient ischemic attack) Gastric reflux Smoker Shortness of breath on exertion History of pain when walking History of edema Cardiology follow-up encounter History of heart attack Chest pain History of left heart catheterization (LHC) (~12/30/20) CKD (chronic kidney disease) stage 3, GFR 30-59 ml/min Lung nodule COPD (chronic obstructive pulmonary disease) Paroxysmal atrial fibrillation Elevated liver enzymes Acute respiratory failure with hypoxia Stroke IBS (irritable bowel syndrome) Hyperlipidemia Heart disease Migraines Frequent headaches Gastrointestinal problem Diabetes History of back problems Asthma Arthritis Home Medications ?Medication ?Instructions ?Recorded ?Last Taken ?Type lovastatin 20 mg tablet 20 mg PO QDAY cholesterol 09/11/24 History ipratropium 0.5 mg-albuterol 3 mg 3 ml inhalation Q4HW A.RT PRN 09/07/21 09/08/24 Rx (2.5 mg base)/3 mL nebulization shortness of breath or wheezing #0 soln mL omega-3 fatty acids-fish oil 360 1 cap PO BID Joints 0 03/04/23 09/11/24 History mg-1,200 mg capsule (Fish Oil) omeprazole 40 mg capsule,delayed 40 mg PO DAILY Gerd 0 11/18/23 09/11/24 History release albuterol sulfate 90 mcg/actuation 1 puff inhalation Q 6H 30 days #8.5 09/21/24 Unknown Rx aerosol inhaler (Ventolin HFA) grams apixaban 5 mg tablet (Eliquis) 5 mg PO Q12H anticoagul ant 30 days 09/21/24 09/12/24 Rx #60 tabs aspirin 81 mg chewable tablet 81 mg PO BREAKFAST 30 da ys #30 tabs 09/21/24 Unknown Rx citalopram 10 mg tablet (Celexa) 10 mg PO DAILY depres lukas 30 days 09/21/24 09/11/24 Rx #30 tabs furosemide 20 mg tablet 20 mg PO BID Diuretic 30 day s #60 09/21/24 09/11/24 Rx tabs lorazepam 0.5 mg tablet (Ativan) 0.5 mg PO Q12H PRN An xiety 30 days 09/21/24 09/11/24 Rx #60 tabs quetiapine 200 mg tablet,extended 200 mg PO BID Bipola r 30 days #30 09/21/24 09/11/24 Rx release 24 hr tabs trazodone 100 mg tablet 200 mg (2 x 100 mg) PO QHS S leep 09/21/24 09/11/24 Rx 30 days #30 tabs Allergy/AdvReac Type Severity Reaction Status Date / Time Penicillins Allergy Intermediate Hives Verified 09/12/24 10:32 carbamazepine (From Tegretol) AdvReac Intermediate Nausea Verified 09/12/24 10:32 benztropine AdvReac Unknown Verified 09/12/24 10:32 diazepam (From Valium) AdvReac Other Verified 09/12/24 10:32 Sulfa (Sulfonamide AdvReac Nausea Verified 09/12/24 10:32 Antibiotics) thioridazine AdvReac Nausea Verified 09/12/24 10:32 thioridazine HCl (From AdvReac Other Verified 09/12/24 10:32 Mellaril) Family History Grandmother Cancer stomach Father Cancer lung Sister Breast cancer Surgical History Hx of surgical procedure History of carpal tunnel surgery History of elbow surgery H/O shoulder surgery H/O hand surgery H/O dilation and curettage Hx of cholecystectomy History of tonsillectomy Social History (Updated 11/04/24 @ 14:[address] Lauren Vela MD) household members: other details: Living in apt with friends, now moving out without home at discharge. housing: homeless Smoking Status: Heavy Smoker (>10/day) alcohol intake: never substance use type: does not use caffeine: Yes what type of physical activity do you participate in: walking seatbelt use: always do you feel safe at home: Yes ROS ROS ED Constitutional Constitutional ED: Denies chills or fever(s) Cardiovascular Cardiovascular: Denies chest pain Respiratory/Chest Respiratory/Chest: Denies dyspnea Gastrointestinal Gastrointestinal: Denies abdominal pain, nausea or vomiting Musculoskeletal Musculoskeletal: Reports arthralgias Integumentary Denies rash Neurologic Neurologic: Reports weakness EXAM Physical Exam Const Vital Signs: 11/04/24 12:30 11/04/24 14:30 11/04/24 14:54 Temperature 97.9 F 97.8 F Temperature Source Oral Pulse Rate 96 91 90 Respiratory Rate 20 H 16 16 Blood Pressure 89/57 L 95/78 95/78 Blood Pressure Mean 67 83 83 Pulse Ox 95 95 99 Oxygen Delivery Method Room Air Room Air 11/04/24 14:55 Temperature 97.8 F Temperature Source Oral Pulse Rate 93 Respiratory Rate 16 Blood Pressure 109/70 Blood Pressure Mean 83 Pulse Ox 96 Oxygen Delivery Method Room Air Positive well nourished, well developed and no apparent distress General Appearance ED: well developed HEENT Reports normocephalic, head/scalp atraumatic and dry mucous membranes Mouth ED: Yes dry mucous membranes Mouth: dry mucous membranes Eyes PERRL and EOMs intact bilaterally Neck full ROM and supple Chest Wall inspection of chest normal Resp normal respiratory effort and clear to auscultation bilaterally Cardio regular rate and regular rhythm GI soft to palpation, non-tender, non-distended and no masses Back/Spine normal ROM and normal to inspection Extremity normal to inspection and full ROM Neuro oriented x3, CN's II-XII intact bilaterally, moves all extremities, no focal motor deficits and no sensory deficits noted Sensorium / Orientation: awake and alert Psych mental status grossly normal and thought process normal Skin no rashes or lesions noted and no wounds Physical Exam Const Vital Signs: 11/04/24 12:30 11/04/24 14:30 11/04/24 14:54 Temperature 97.9 F 97.8 F Temperature Source Oral Pulse Rate 96 91 90 Respiratory Rate 20 H 16 16 Blood Pressure 89/57 L 95/78 95/78 Blood Pressure Mean 67 83 83 Pulse Ox 95 95 99 Oxygen Delivery Method Room Air Room Air 11/04/24 14:55 Temperature 97.8 F Temperature Source Oral Pulse Rate 93 Respiratory Rate 16 Blood Pressure 109/70 Blood Pressure Mean 83 Pulse Ox 96 Oxygen Delivery Method Room Air Sepsis Attestation Date exam was performed: 11/04/24 Time exam was performed: 13:49 Possible Source of Sepsis: Genitourinary Fluid Resuscitation Fluid resuscitation indicated?: Yes Fluid Resuscitation ordered: Lesser volume fluid bolus ordered Amount of fluid ordered: 1,000 Reason for lesser fluid bolus:: Renal Failure Sepsis Note Date exam was performed: 11/04/24 Time exam was performed: 14:17 Sepsis Attestation: Sepsis re-evaluation was performed Response to fluids: Fluid responsive hypotension (Patient responded to 1 L.) MDM MDM MDM Narrative Medical decision making narrative: Patient presenting today with failure to thrive. She smell strongly of urine and has not had a bathin over 2 weeks. She does appear dry and has been given IV fluids. Initially her blood pressure waslow at 89/57 but this did significantly improve after the IV fluids around 130 systolic. Labs were obtained, CBC unremarkable, BMP consistent with CKD with a creatinine of 1.48. UA is consistent witha UTI, urinary culture obtained and patient given IV Levaquin. Patient is not septic. Social work was consulted, she will be admitted for treatment of her UTI and probable placement to a SNF for rehab. I spoke with the hospitalist and patient admitted in stable condition. I have personally performed a face to face assessment of the patient and have reviewed the ASHLEE Note. I performed a substantive portion of the visit including all aspects of the following. My roth findings include: History is remarkable for inability to care for herself. Patient smells of urine. Squad stated she was lying on the floor unable to get up in her own urine uncertain whether there was feces as well. The person that tries to care for her is moving out of the house/unit she resides in. She has no onethat lives locally. Patient believes she can go home. There is a past medical history of COPD with bronchospasm, peripheral vascular disease, hyperlipidemia, BMI of 47.1, type 2 diabetes, tardive dyskinesia, stage III kidney disease. Sheis not a good informant. She lacks insight. She believes she can go home. When asked how she was going to go home she states she contact her daughter. She wants to go the [employer] [facility]. She believes her daughter will come by every so often to check on her. Exam is vitals are marked for hypotension with a pressure 89/57. HEENT is remarkable dry mucosa. She is a dentulous. Patient smells of urine. HEENT is unremarkable with the dry mucosa. Lungs are clear to auscultation. Heart is regular. Rate is normal. There is no murmur, gallop or rub. Abdomen is fl abbysoft nontender. She is not oriented. Cranials 2 through 12 are intact. Moves all extremities. There is no clonus or Babinski sign noted. Medical Decision Making clinically patient is dehydrated and hypotensive. 1 L of normal saline was ordered. Appropriate blood work was obtained to assess renal function, electrolytes, H&H and rule out infectious cause as well. Patient will require admission for failure to thrive and inability to care for self at the minimum. Other additions or changes: [None] Lab Data Attestation: I reviewed the patient's lab results. Labs: Laboratory Results - last 24 hr 11/04/24 11/04/24 13:00 13:10 WBC 9.9 RBC 4.62 Hgb 14.4 Hct 43.9 MCV 95.0 MCH 31.2 MCHC 32.8 RDW Std Deviation 46.8 H RDW Coeff of Robert 13.2 Plt Count 261 MPV 10.3 Immature Gran % (Auto) 0.200 Neut % (Auto) 70.2 H Lymph % (Auto) 19.2 Price % (Auto) 7.3 Eos % (Auto) 2.9 Baso % (Auto) 0.2 Absolute Neuts (auto) 6.9 Absolute Lymphs (auto) 1.90 Nucleated RBC % 0 Sodium 142 Potassium 3.7 Chloride 105 Carbon Dioxide 26.2 Anion Gap 11 BUN 13 Creatinine 1.48 H Estim Creat Clear Calc 47.80 L Est GFR (MDRD) Non-Af 40 L BUN/Creatinine Ratio 8.9 L Glucose 117 H Calcium 9.3 Phosphorus 4.0 Magnesium 1.9 Urine Color Yellow Urine Clarity Sl. Cloudy Urine pH 5.0 Ur Specific Boutte 1.020 Urine Protein 15 H Urine Glucose (UA) Normal Urine Ketones Negative Urine Occult Blood 50 H Urine Nitrite Positive H Urine Bilirubin Negative Urine Urobilinogen 1 H Ur Leukocyte Esterase 500 H Urine RBC 0 SEEN Urine WBC 25-50 SEEN Ur Squamous Epith Cells 0 SEEN Urine Bacteria 3+ Urine Mucus 0 SEEN MDM MDM Narrative Medical decision making narrative: I have personally performed a face to face assessment of the patient and have reviewed the ASHLEE Note. I performed a substantive portion of the visit including all aspects of the following. My roth findings include: History is remarkable for inability to care for herself. Patient smells of urine. Adriana stated she was lying on the floor unable to get up in her own urine uncertain whether there was feces as well. The person that tries to care for her is moving out of the house/unit she resides in. She has no onethat lives locally. Patient believes she can go home. There is a past medical history of COPD with bronchospasm, peripheral vascular disease, hyperlipidemia, BMI of 47.1, type 2 diabetes, tardive dyskinesia, stage III kidney disease. She is not a good informant. She lacks insight. She believes she can go home. When asked how she was going to go home she states she contact her daughter. She wants to go the [employer] [facility]. She believes her daughter will come by every so often to check on her. Exam is vitals are marked for hypotension with a pressure 89/57. HEENT is remarkable dry mucosa. She is a dentulous. Patient smells of urine. HEENT is unremarkable with the dry mucosa. Lungs are clear to auscultation. Heart is regular. Rate is normal. There is no murmur, gallop or rub. Abdomen is flabby soft nontender. She is not oriented. Cranials 2 through 12 are intact. Moves all extremities. There is no clonus or Babinski sign noted. Medical Decision Making clinically patient is dehydrated and hypotensive. 1 L of normal saline was ordered. Appropriate blood work was obtained to assess renal function, electrolytes, H&H and rule out infectious cause as well. Patient will require admission for failure to thrive and inability to care for self at the minimum. Other additions or changes: [None] Lab Data Labs: Laboratory Results - last 24 hr 11/04/24 11/04/24 13:00 13:10 WBC 9.9 RBC 4.62 Hgb 14.4 Hct 43.9 MCV 95.0 MCH 31.2 MCHC 32.8 RDW Std Deviation 46.8 H RDW Coeff of Robert 13.2 Plt Count 261 MPV 10.3 Immature Gran % (Auto) 0.200 Neut % (Auto) 70.2 H Lymph % (Auto) 19.2 Price % (Auto) 7.3 Eos % (Auto) 2.9 Baso % (Auto) 0.2 Absolute Neuts (auto) 6.9 Absolute Lymphs (auto) 1.90 Nucleated RBC % 0 Sodium 142 Potassium 3.7 Chloride 105 Carbon Dioxide 26.2 Anion Gap 11 BUN 13 Creatinine 1.48 H Estim Creat Clear Calc 47.80 L Est GFR (MDRD) Non-Af 40 L BUN/Creatinine Ratio 8.9 L Glucose 117 H Calcium 9.3 Phosphorus 4.0 Magnesium 1.9 Urine Color Yellow Urine Clarity Sl. Cloudy Urine pH 5.0 Ur Specific Boutte 1.020 Urine Protein 15 H Urine Glucose (UA) Normal Urine Ketones Negative Urine Occult Blood 50 H Urine Nitrite Positive H Urine Bilirubin Negative Urine Urobilinogen 1 H Ur Leukocyte Esterase 500 H Urine RBC 0 SEEN Urine WBC 25-50 SEEN Ur Squamous Epith Cells 0 SEEN Urine Bacteria 3+ Urine Mucus 0 SEEN Management Discussion w/another healthcare provider: Hospitalist (Patient discussed with Dr. Vela. She admitted patient.) Discharge Plan Dx/Rx/DC Orders Clinical Impression: Urinary tract infection, DM (diabetes mellitus), type 2, Obesity, morbid, BMI 40.0-49.9, Acute hypotension, Acute alteration in mental status, 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 mellitus, Acute hyperglycemia Disposition Disposition: Acute Care Hospital [facility] What to do if you have Problems For any increased pain, shortness of breath, bleeding, nausea or vomiting, chest pain, or any unexpected problems, contact your Primary Care Provider. Call [facility] ([phone]) or report to the closest Emergency Room. Call 911 if necessary. 11/04/24 1504 Cosigner Signature (if applicable): 11/04/24 1515 CC: Dr. Homer Bradford MD ~ Signed [facility]04-20-2025 History and physical note [facility] Medical Records Department [address] [place] [address] H&P Exam - Hospitalist 11/04/24 1429 MR#: [id number] Acct: [id number] Name: PERNELL RODRIGUEZ Rep #:[id number] : 1960 64 From: Lauren Vela MD PCP: Dr. Homre Bradford MD Status:REG ER Location: ED HPI - General General Date of Service: 11/04/24 Chief Complaint: Debility, weakness, adult FTT HPI Narrative The patient is a 64 y/o F w/ PMHx: Diabetes mellitus type II, COPD/Asthma, CKD stage III unclear subtype per GFR trending, PAF, HTN, HLD, Anxiety and Depression/bipolar disorder, Tobacco use, Morbid obesity, GERD who presents to the [facility] ED on 11/04/2024 with history of myriad of complaints noting that she is currently living with a friend who are moving out of the house thatthey have been staying at and she does not have a place to stay unable to care for herself noting significant weakness and debility over the last several weeks with difficulty walking because of her weakness with inability to even bathe with or maintain appropriate hygiene prompting eventual transition to the ED to assure evaluation and care. She does report increased urinary frequency, mild suprapubic discomfort and dysuria. She notes she has been incontinent but a big part of this she notes that she cannot really function to get to the restroom. Workup in the ED included T97.9, heart rate 96, BP 89/57, respiratory rate 20, 95% room air, CBC with WC 9.9, hemoglobin 14.4, platelets 261 without shift, BMP with BUN/creatinine 13/1.48, GFR 40, glucose 117, urinalysis with cloudy appearing urine, specific gravity mildly elevated 1.020, protein 15, occult blood 50, positive nitrate, leukocyte [id number] with urine WBCs 25-50 with 3+ urine bacteria, urine culture pending per ED, blood culture pending per ED. From review of cultures very remotely in 2017 patient had an E. coli greater [id number] culture which was pansensitive and in 2014 had a Klebsiella pneumonia greater than 100,000 that was resistant only to ampicillin otherwise pansensitive. In the ED patient administered 1 L norm alsaline as well as Levaquin 750 mg IV x 1. [facility] Medical History History of echocardiogram Wears glasses Anxiety Depression Post-menopausal History of renal disease High cholesterol Back pain TIA (transient ischemic attack) Gastric reflux Smoker Shortness of breath on exertion History of pain when walking History of edema Cardiology follow-up encounter History of heart attack Chest pain History of left heart catheterization (LHC) (~06/15/21) CKD (chronic kidney disease) stage 3, GFR 30-59 ml/min Lung nodule COPD (chronic obstructive pulmonary disease) Paroxysmal atrial fibrillation Elevated liver enzymes Acute respiratory failure with hypoxia Stroke IBS (irritable bowel syndrome) Hyperlipidemia Heart disease Migraines Frequent headaches Gastrointestinal problem Diabetes History of back problems Asthma Arthritis Home Medications ?Medication ?Instructions ?Recorded ?Last Taken ?Type lovastatin 20 mg tablet 20 mg PO QDAY cholesterol 09/11/24 History ipratropium 0.5 mg-albuterol 3 mg 3 ml inhalation Q4HW A.RT PRN 09/07/21 09/08/24 Rx (2.5 mg base)/3 mL nebulization shortness of breath or wheezing #0 soln mL omega-3 fatty acids-fish oil 360 1 cap PO BID Joints 0 03/04/23 09/11/24 History mg-1,200 mg capsule (Fish Oil) omeprazole 40 mg capsule,delayed 40 mg PO DAILY Gerd 0 11/18/23 09/11/24 History release albuterol sulfate 90 mcg/actuation 1 puff inhalation Q 6H 30 days #8.5 09/21/24 Unknown Rx aerosol inhaler (Ventolin HFA) grams apixaban 5 mg tablet (Eliquis) 5 mg PO Q12H anticoagul ant 30 days 09/21/24 09/12/24 Rx #60 tabs aspirin 81 mg chewable tablet 81 mg PO BREAKFAST 30 da ys #30 tabs 09/21/24 Unknown Rx citalopram 10 mg tablet (Celexa) 10 mg PO DAILY depres lukas 30 days 09/21/24 09/11/24 Rx #30 tabs furosemide 20 mg tablet 20 mg PO BID Diuretic 30 day s #60 09/21/24 09/11/24 Rx tabs lorazepam 0.5 mg tablet (Ativan) 0.5 mg PO Q12H PRN An xiety 30 days 09/21/24 09/11/24 Rx #60 tabs quetiapine 200 mg tablet,extended 200 mg PO BID Bipola r 30 days #30 09/21/24 09/11/24 Rx release 24 hr tabs trazodone 100 mg tablet 200 mg (2 x 100 mg) PO QHS S leep 09/21/24 09/11/24 Rx 30 days #30 tabs Allergy/AdvReac Type Severity Reaction Status Date / Time Penicillins Allergy Intermediate Hives Verified 09/12/24 10:32 carbamazepine (From Tegretol) AdvReac Intermediate Nausea Verified 09/12/24 10:32 benztropine AdvReac Unknown Verified 09/12/24 10:32 diazepam (From Valium) AdvReac Other Verified 09/12/24 10:32 Sulfa (Sulfonamide AdvReac Nausea Verified 09/12/24 10:32 Antibiotics) thioridazine AdvReac Nausea Verified 09/12/24 10:32 thioridazine HCl (From AdvReac Other Verified 09/12/24 10:32 Mellaril) Family History Grandmother Cancer stomach Father Cancer lung Sister Breast cancer Surgical History Hx of surgical procedure History of carpal tunnel surgery History of elbow surgery H/O shoulder surgery H/O hand surgery H/O dilation and curettage Hx of cholecystectomy History of tonsillectomy Social History (Updated 11/04/24 @ 14:[address] Lauren Vela MD) household members: other details: Living in apt with friends, now moving out without home at discharge. housing: homeless Smoking Status: Heavy Smoker (>10/day) alcohol intake: never substance use type: does not use caffeine: Yes what type of physical activity do you participate in: walking seatbelt use: always do you feel safe at home: Yes ROS ROS Narrative Admission Review of Systems: CONSTITUTIONAL: No weight loss, fever, chills, + weakness or fatigue. HEENT: Eyes: No visual loss, blurred vision, double vision or yellow sclerae. Ears, Nose, Throat: No hearing loss, sneezing, congestion, runny nose or sore throat. SKIN: No rash or itching, lesions except significant + intertrigo, very staged ecchymoses, abrasion. CARDIOVASCULAR: No chest pain, chest pressure or chest discomfort, palpitations,edema, orthopnea, syncopal events. RESPIRATORY: + Chronic dyspnea, occasional cough, occasional wheezing. No current marked productivesputum, hemoptysis. GASTROINTESTINAL: No anorexia, nausea, vomiting or diarrhea, abdominal pain, melena, BRBPR. GENITOURINARY: + Dysuria, frequency, incontinence, suprapubic discomfort. No retention. NEUROLOGICAL: + Diffuse debilitating weakness, unable to ambulate well. No headache, dizziness, syncope, paralysis, ataxia, numbness or tingling in the extremities, focal weakness, change in bowel orbladder control, seizure. MUSCULOSKELETAL: + muscle, back pain, joint pain or stiffness. HEMATOLOGIC: No anemia, bleeding or bruising. LYMPHATICS: No enlarged nodes. No history of splenectomy. PSYCHIATRIC: + History of anxiety and depression/bipolar disorder. ENDOCRINOLOGIC: No reports of sweating, cold or heat intolerance. No polyuria orpolydipsia. ALLERGIES: + History of asthma, hives, allergic rhinitis. Vital Signs Vital Signs Vital Signs: 11/04/24 12:30 Temperature 97.9 F Temperature Source Oral Pulse Rate 96 Respiratory Rate 20 H Blood Pressure 89/57 L Blood Pressure Mean 67 Pulse Ox 95 Oxygen Delivery Method Room Air Weight Weight: 257 lb 11.526 oz Body Mass Index (BMI) 47.1 Physical Exam Narrative Physical Examination: General: Awake, alert, oriented x 3 and cooperative, laying in ED bed, tearful with discussions about recent situations, homelessness status. Skin: Normal color, normal turgor, no icterus, no cyanosis except occasional stage ecchymoses, abrasion, notable intertrigo especially groin folds. HEENT: AT/NC, EOMI, PERRLA, moderately dry MM, mild thrush evident, no carotid bruits or JVD noted. Lungs: Diminished, greater bases, distant likely secondary to habitus, no evidence of distress, no rales, ronchi or wheezing. Heart: Regular rate and rhythm; no gallop, rub audible. Abdomen: Soft, morbidly obese, NTTP except mild discomfort with suprapubic palpation, distant BS, difficult to discern distention and HSM given habitus ND,normal BS, no HSM. Extremities: No cyanosis, no clubbing, no marked distal pitting edema. Neurological: Patient awake, alert, oriented as noted, cognitive function intact; pupils equally reactive to light and accommodation, cranial nerves grossnormal, moving all 4 extremities, strength severely globally decreased Psychiatric: Affect appears fatigued, tearful with discussions, does have underlying anxiety and depression/bipolar disorder. Results Lab / Micro Data 11/04/24 13:10 11/04/24 13:10 Labs: Laboratory Results - last 24 hr 11/04/24 13:00: Urine Color Yellow, Urine Clarity Sl. Cloudy, Urine pH 5.0, Ur Specific Boutte 1.020, Urine Protein 15 H, Urine Glucose (UA) Normal, Urine Ketones Negative, Urine Occult Blood 50 H, Urine Nitrite Positive H, Urine Bilirubin Negative, Urine Urobilinogen 1 H, Ur Leukocyte Esterase 500 H, Urine RBC 0 SEEN, Urine WBC 25-50 SEEN, Ur Squamous Epith Cells 0 SEEN, Urine Bacteria3+, UrineMucus 0 SEEN 11/04/24 13:10: WBC 9.9, RBC 4.62, Hgb 14.4, Hct 43.9, MCV 95.0, MCH 31.2, MCHC 32.8, RDW Std Deviation 46.8 H, RDW Coeff of Robert 13.2, Plt Count 261, MPV 10.3, Immature Gran % (Auto) 0.200, Neut % (Auto) 70.2 H, Lymph % (Auto) 19.2, Price % (Auto) 7.3, Eos % (Auto) 2.9, Baso % (Auto) 0.2, Absolute Neuts (auto) 6.9, Absolute Lymphs (auto) 1.90, Nucleated RBC % 0, Sodium 142, Potassium 3.7, [id number], Carbon Dioxide 26.2, Anion Gap 11, BUN 13, Creatinine 1.48 H, Estim Creat Clear Calc 47.80 L, Est GFR (MDRD) Non-Af 40 L, BUN/Creatinine Ratio 8.9 L, Glucose 117 H, Calcium 9.3 Assessment & Plan Assessment/Plan (1) Urinary tract infection: PLAN: Plan The patient is a 64 y/o F w/ PMHx: Diabetes mellitus type II, COPD/Asthma, CKD stage III unclear subtype per GFR trending, PAF, HTN, HLD, Anxiety and Depression/bipolar disorder, Tobacco use, Morbid obesity, GERD who presents to the [facility] ED on 11/04/2024 with history of myriad of complaints noting that she is currently living with a friend who are moving out of the house thatthey have been staying at and she does not have a place to stay unable to care for herself noting significant weakness and debility over the last several weeks with difficulty walking because of her weakness with inability to even bathe with or maintain appropriate hygiene prompting eventual transition to the ED to assure evaluation and care. #1. Acute Debility, Adult FTT secondary to Acute Complicated Urinary Tract Infection with high riskfor fall, inability to care for self, suspect skilled needs: Will admit to [facility] upon ED evaluation remarkable, pending UCx, will give additional IV fluid bolus and continue due to IVFs, monitor I/Os, continue IV Rocephin w/ transition as able pending sensitivities and speciation. Bld cx x2 obtained in the ED. PT/OT/case management consult for discharge planning with skilled facility needs at this time apparent. #2. Diabetes mellitus type II: Noted history, per current list does not appear to be on regimen, clarifying, hemoglobin A1c requested, maintain on in the interim ADA diet, accu checks w/ ISS. #3. Chronic COPD/asthma: Will temporally hold home inhalers in the interim placed on ATC budesonidetherapy, PRN albuterol, HOB, IS parameters. Will also start oral nystatin swish and swallow for suspected mild thrush on examination suspected likely secondary to usage of her inhalers without rinsing her mouth. #4. Chronic Kidney Disease Stage III, unclear subtype per GFR trend: Admission BUN/Cr 13/1.48, GFR 40, baseline renal function primarily 1.3-1.4, repeat BMP Sneha. #5. PAF: Per current list does not appear to be on rate or rhythm agent, will continue patient homeEliquis regimen #6. Hypertension: Given low BP upon presentation we will continue to hydrate, temporally hold Lasix, add back once clinically appropriate. PRN hydralazine. #7. Hyperlipidemia: Will continue patient on statin therapy. #8. Anxiety and depression/bipolar disorder: Will continue patient home trazodone, Seroquel, low-dose as needed lorazepam and Celexa regimen with hold for sedation as needed. #9. Tobacco Abuse: Encouraged cessation, inpatient consultation per RT, NR if desired. #10. Morbid Obesity: Weight loss and lifestyle changes encouraged. #11. GERD: Working patient on PPI. #12. Homelessness: Patient had previously been living in a trailer with her family and then transition to an apartment with friends but unfortunately they are moving out and she currently has no homeat discharge, high risk for nonadherence to treatment and subsequent increased risk for complications and readmission, not clinically appropriate for consideration for group home. #13. DVT prophylaxis: Will continue patient home Eliquis regimen. #14. CODE status: Patient does not have healthcare power of attorney general or living will in place but she specifically notes she would want her niece Felecia to beher medical decision-maker if necessary.She does have daughters but she does specifically state that she wants her niece to be the decision-maker if it was necessary not her children. Discussed CODE status at length including difference between FULL code, DNR-CCA and DNR-CC status. Following discussions about the differences in these status, requested Full Code status. [facility] Face to Face Time: 16 minutes. Charges/Coding Visit Charges Inpatient E&M: 24932 Init Hosp L3 Procedures Hospitalists Procedures: 52525 Advncd Care Plan 30 Min 11/04/24 1500 Cosigner Signature (if applicable): CC: Dr. Lauren Vela MD; Dr. Homer Bradford MD~ Signed [facility]04-20-2025 Discharge summary Author Rebecca De Santiago [facility] Note Date/Time November 04, 2024 3:1 5pm [facility] Medical Records Department [address] [place] [address] Emergency Department Summary 11/04/24 MR#: [id number] Acct: [id number] Name: PERNELL RODRIGUEZ Rep #:[id number] : 1960 64 From: Rebecca MAY PCP: Dr. Homer Bradford MD Status:REG ER Location: ED HPI <YADIRA Rajan - Last Filed: 11/04/24 15:04> History of Present Illness Chief Complaint: Weakness Narrative Narrative: Patient presenting today due to failure to thrive. She is currently living withfriends who are moving out of the house they have been staying at today, she will not have any place to stay once they leave. She has been unable to take care of herself over the last several weeks as she cannot stand up due to weakness and pain in her legs. The people she is staying with have to help her stand up so that she can change her briefs, but she does not change them regularly and has not been changed since last night. She admits that she has not had a bath in about 2 weeks. She has a PMH of COPD, CKD, T2DM, bipolar disorder. [facility] <YADIRA Rajan - Last Filed: 11/04/24 15:04> [facility] Medical History History of echocardiogram Wears glasses Anxiety Depression Post-menopausal History of renal disease High cholesterol Back pain TIA (transient ischemic attack) Gastric reflux Smoker Shortness of breath on exertion History of pain when walking History of edema Cardiology follow-up encounter History of heart attack Chest pain History of left heart catheterization (LHC) (~12/30/20) CKD (chronic kidney disease) stage 3, GFR 30-59 ml/min Lung nodule COPD (chronic obstructive pulmonary disease) Paroxysmal atrial fibrillation Elevated liver enzymes Acute respiratory failure with hypoxia Stroke IBS (irritable bowel syndrome) Hyperlipidemia Heart disease Migraines Frequent headaches Gastrointestinal problem Diabetes History of back problems Asthma Arthritis Home Medications ?Medication ?Instructions ?Recorded ?Last Taken ?Type lovastatin 20 mg tablet 20 mg PO QDAY cholesterol 09/11/24 History ipratropium 0.5 mg-albuterol 3 mg 3 ml inhalation Q4HW A.RT PRN 09/07/21 09/08/24 Rx (2.5 mg base)/3 mL nebulization shortness of breath or wheezing #0 soln mL omega-3 fatty acids-fish oil 360 1 cap PO BID Joints 0 03/04/23 09/11/24 History mg-1,200 mg capsule (Fish Oil) omeprazole 40 mg capsule,delayed 40 mg PO DAILY Gerd 0 11/18/23 09/11/24 History release albuterol sulfate 90 mcg/actuation 1 puff inhalation Q 6H 30 days #8.5 09/21/24 Unknown Rx aerosol inhaler (Ventolin HFA) grams apixaban 5 mg tablet (Eliquis) 5 mg PO Q12H anticoagul ant 30 days 09/21/24 09/12/24 Rx #60 tabs aspirin 81 mg chewable tablet 81 mg PO BREAKFAST 30 da ys #30 tabs 09/21/24 Unknown Rx citalopram 10 mg tablet (Celexa) 10 mg PO DAILY depres lukas 30 days 09/21/24 09/11/24 Rx #30 tabs furosemide 20 mg tablet 20 mg PO BID Diuretic 30 day s #60 09/21/24 09/11/24 Rx tabs lorazepam 0.5 mg tablet (Ativan) 0.5 mg PO Q12H PRN An xiety 30 days 09/21/24 09/11/24 Rx #60 tabs quetiapine 200 mg tablet,extended 200 mg PO BID Bipola r 30 days #30 09/21/24 09/11/24 Rx release 24 hr tabs trazodone 100 mg tablet 200 mg (2 x 100 mg) PO QHS S leep 09/21/24 09/11/24 Rx 30 days #30 tabs Allergy/AdvReac Type Severity Reaction Status Date / Time Penicillins Allergy Intermediate Hives Verified 09/12/24 10:32 carbamazepine (From Tegretol) AdvReac Intermediate Nausea Verified 09/12/24 10:32 benztropine AdvReac Unknown Verified 09/12/24 10:32 diazepam (From Valium) AdvReac Other Verified 09/12/24 10:32 Sulfa (Sulfonamide AdvReac Nausea Verified 09/12/24 10:32 Antibiotics) thioridazine AdvReac Nausea Verified 09/12/24 10:32 thioridazine HCl (From AdvReac Other Verified 09/12/24 10:32 Mellaril) Family History Grandmother Cancer stomach Father Cancer lung Sister Breast cancer Surgical History Hx of surgical procedure History of carpal tunnel surgery History of elbow surgery H/O shoulder surgery H/O hand surgery H/O dilation and curettage Hx of cholecystectomy History of tonsillectomy Social History (Updated 11/04/24 @ 14:[address] Lauren Vela MD) household members: other details: Living in apt with friends, now moving out without home at discharge. housing: homeless Smoking Status: Heavy Smoker (>10/day) alcohol intake: never substance use type: does not use caffeine: Yes what type of physical activity do you participate in: walking seatbelt use: always do you feel safe at home: Yes ROS <YADIRA Rajan - Last Filed: 11/04/24 15:04> ROS ED Constitutional Constitutional ED: Denies chills or fever(s) Cardiovascular Cardiovascular: Denies chest pain Respiratory/Chest Respiratory/Chest: Denies dyspnea Gastrointestinal Gastrointestinal: Denies abdominal pain, nausea or vomiting Musculoskeletal Musculoskeletal: Reports arthralgias Integumentary Denies rash Neurologic Neurologic: Reports weakness EXAM <YADIRA Rajan - Last Filed: 11/04/24 15:04> Physical Exam Const Vital Signs: 11/04/24 12:30 11/04/24 14:30 11/04/24 14:54 Temperature 97.9 F 97.8 F Temperature Source Oral Pulse Rate 96 91 90 Respiratory Rate 20 H 16 16 Blood Pressure 89/57 L 95/78 95/78 Blood Pressure Mean 67 83 83 Pulse Ox 95 95 99 Oxygen Delivery Method Room Air Room Air 11/04/24 14:55 Temperature 97.8 F Temperature Source Oral Pulse Rate 93 Respiratory Rate 16 Blood Pressure 109/70 Blood Pressure Mean 83 Pulse Ox 96 Oxygen Delivery Method Room Air Positive well nourished, well developed and no apparent distress General Appearance ED: well developed HEENT Reports normocephalic, head/scalp atraumatic and dry mucous membranes Mouth ED: Yes dry mucous membranes Mouth: dry mucous membranes Eyes PERRL and EOMs intact bilaterally Neck full ROM and supple Chest Wall inspection of chest normal Resp normal respiratory effort and clear to auscultation bilaterally Cardio regular rate and regular rhythm GI soft to palpation, non-tender, non-distended and no masses Back/Spine normal ROM and normal to inspection Extremity normal to inspection and full ROM Neuro oriented x3, CN's II-XII intact bilaterally, moves all extremities, no focal motor deficits and no sensory deficits noted Sensorium / Orientation: awake and alert Psych mental status grossly normal and thought process normal Skin no rashes or lesions noted and no wounds <Dr. Issa Chapin MD - Last Filed: 11/04/24 15:15> Physical Exam Const Vital Signs: 11/04/24 12:30 11/04/24 14:30 11/04/24 14:54 Temperature 97.9 F 97.8 F Temperature Source Oral Pulse Rate 96 91 90 Respiratory Rate 20 H 16 16 Blood Pressure 89/57 L 95/78 95/78 Blood Pressure Mean 67 83 83 Pulse Ox 95 95 99 Oxygen Delivery Method Room Air Room Air 11/04/24 14:55 Temperature 97.8 F Temperature Source Oral Pulse Rate 93 Respiratory Rate 16 Blood Pressure 109/70 Blood Pressure Mean 83 Pulse Ox 96 Oxygen Delivery Method Room Air Sepsis Attestation <Dr. Issa Chapin MD - Last Filed: 11/04/24 15:15> Date exam was performed: 11/04/24 Time exam was performed: 13:49 Possible Source of Sepsis: Genitourinary Fluid Resuscitation Fluid resuscitation indicated?: Yes Fluid Resuscitation ordered: Lesser volume fluid bolus ordered Amount of fluid ordered: 1,000 Reason for lesser fluid bolus:: Renal Failure Sepsis Note Date exam was performed: 11/04/24 Time exam was performed: 14:17 Sepsis Attestation: Sepsis re-evaluation was performed Response to fluids: Fluid responsive hypotension (Patient responded to 1 L.) MDM <YADIRA Rajan - Last Filed: 11/04/24 15:04> [facility] Narrative Medical decision making narrative: Patient presenting today with failure to thrive. She smell strongly of urine and has not had a bath in over 2 weeks. She does appear dry and has been given IV fluids. Initially her blood pressure was low at 89/57 but this did significantly improve after the IV fluids around 130 systolic. Labs were obtained, CBC unremarkable, BMP consistent with CKD with a creatinine of 1.48. UA is consistent with a UTI, urinary culture obtained and patient given IV Levaquin. Patient is not septic. Social work was consulted, she will be admitted for treatment of her UTI and probable placement to a SNF for rehab. I spoke with the hospitalist and patient admitted in stable condition. I have personally performed a face to face assessment of the patient and have reviewed the ASHLEE Note. I performed a substantive portion of the visit including all aspects of the following. My roth findings include: History is remarkable for inability to care for herself. Patient smells of urine. Squad stated she was lying on the floor unable to get up in her own urine uncertain whether there was feces as well. The person that tries to care for her is moving out of the house/unit she resides in. She has no one that lives locally. Patient believes she can go home. There is a past medical history of COPD with bronchospasm, peripheral vascular disease, hyperlipidemia, BMI of 47.1, type 2 diabetes, tardive dyskinesia, stage III kidney disease. Sheis not a good informant. She lacks insight. She believes she can go home. When asked how she was going to go home she states she contact her daughter. She wants to go the [employer] [facility]. She believes her daughter will come by every so often to check on her. Exam is vitals are marked for hypotension with a pressure 89/57. HEENT is remarkable dry mucosa. She is a dentulous. Patient smells of urine. HEENT is unremarkable with the dry mucosa. Lungs are clear to auscultation. Heart is regular. Rate is normal. There is no murmur, gallop or rub. Abdomen is flabbysoft nontender. She is not oriented. Cranials 2 through 12 are intact. Moves all extremities. There is no clonus or Babinski sign noted. Medical Decision Making clinically patient is dehydrated and hypotensive. 1 L of normal saline was ordered. Appropriate blood work was obtained to assess renal function, electrolytes, H&H and rule out infectious cause as well. Patient will require admission for failure to thrive and inability to care for self at the minimum. Other additions or changes: [None] Lab Data Attestation: I reviewed the patient's lab results. Labs: Laboratory Results - last 24 hr 11/04/24 11/04/24 13:00 13:10 WBC 9.9 RBC 4.62 Hgb 14.4 Hct 43.9 MCV 95.0 MCH 31.2 MCHC 32.8 RDW Std Deviation 46.8 H RDW Coeff of Robert 13.2 Plt Count 261 MPV 10.3 Immature Gran % (Auto) 0.200 Neut % (Auto) 70.2 H Lymph % (Auto) 19.2 Price % (Auto) 7.3 Eos % (Auto) 2.9 Baso % (Auto) 0.2 Absolute Neuts (auto) 6.9 Absolute Lymphs (auto) 1.90 Nucleated RBC % 0 Sodium 142 Potassium 3.7 Chloride 105 Carbon Dioxide 26.2 Anion Gap 11 BUN 13 Creatinine 1.48 H Estim Creat Clear Calc 47.80 L Est GFR (MDRD) Non-Af 40 L BUN/Creatinine Ratio 8.9 L Glucose 117 H Calcium 9.3 Phosphorus 4.0 Magnesium 1.9 Urine Color Yellow Urine Clarity Sl. Cloudy Urine pH 5.0 Ur Specific Boutte 1.020 Urine Protein 15 H Urine Glucose (UA) Normal Urine Ketones Negative Urine Occult Blood 50 H Urine Nitrite Positive H Urine Bilirubin Negative Urine Urobilinogen 1 H Ur Leukocyte Esterase 500 H Urine RBC 0 SEEN Urine WBC 25-50 SEEN Ur Squamous Epith Cells 0 SEEN Urine Bacteria 3+ Urine Mucus 0 SEEN <Dr. Issa Chapin MD - Last Filed: 11/04/24 15:15> [facility] MDM Narrative Medical decision making narrative: I have personally performed a face to face assessment of the patient and have reviewed the ASHLEE Note. I performed a substantive portion of the visit including all aspects of the following. My roth findings include: History is remarkable for inability to care for herself. Patient smells of urine. Adriana stated she was lying on the floor unable to get up in her own urine uncertain whether there was feces as well. The person that tries to care for her is moving out of the house/unit she resides in. She has no one that lives locally. Patient believes she can go home. There is a past medical history of COPD with bronchospasm, peripheral vascular disease, hyperlipidemia, BMI of 47.1, type 2 diabetes, tardive dyskinesia, stage III kidney disease. She is not a good informant. She lacks insight. She believes she can go home. When asked how she was going to go home she states she contact her daughter. She wants to go the [employer] [facility]. She believes her daughter will come by every so often to check on her. Exam is vitals are marked for hypotension with a pressure 89/57. HEENT is remarkable dry mucosa. She is a dentulous. Patient smells of urine. HEENT is unremarkable with the dry mucosa. Lungs are clear to auscultation. Heart is regular. Rate is normal. There is no murmur, gallop or rub. Abdomen is flabby soft nontender. She is not oriented. Cranials 2 through 12 are intact. Moves all extremities. There is no clonus or Babinski sign noted. Medical Decision Making clinically patient is dehydrated and hypotensive. 1 L of normal saline was ordered. Appropriate blood work was obtained to assess renal function, electrolytes, H&H and rule out infectious cause as well. Patient will require admission for failure to thrive and inability to care for self at the minimum. Other additions or changes: [None] Lab Data Labs: Laboratory Results - last 24 hr 11/04/24 11/04/24 13:00 13:10 WBC 9.9 RBC 4.62 Hgb 14.4 Hct 43.9 MCV 95.0 MCH 31.2 MCHC 32.8 RDW Std Deviation 46.8 H RDW Coeff of Robert 13.2 Plt Count 261 MPV 10.3 Immature Gran % (Auto) 0.200 Neut % (Auto) 70.2 H Lymph % (Auto) 19.2 Price % (Auto) 7.3 Eos % (Auto) 2.9 Baso % (Auto) 0.2 Absolute Neuts (auto) 6.9 Absolute Lymphs (auto) 1.90 Nucleated RBC % 0 Sodium 142 Potassium 3.7 Chloride 105 Carbon Dioxide 26.2 Anion Gap 11 BUN 13 Creatinine 1.48 H Estim Creat Clear Calc 47.80 L Est GFR (MDRD) Non-Af 40 L BUN/Creatinine Ratio 8.9 L Glucose 117 H Calcium 9.3 Phosphorus 4.0 Magnesium 1.9 Urine Color Yellow Urine Clarity Sl. Cloudy Urine pH 5.0 Ur Specific Boutte 1.020 Urine Protein 15 H Urine Glucose (UA) Normal Urine Ketones Negative Urine Occult Blood 50 H Urine Nitrite Positive H Urine Bilirubin Negative Urine Urobilinogen 1 H Ur Leukocyte Esterase 500 H Urine RBC 0 SEEN Urine WBC 25-50 SEEN Ur Squamous Epith Cells 0 SEEN Urine Bacteria 3+ Urine Mucus 0 SEEN Management Discussion w/another healthcare provider: Hospitalist (Patient discussed with Dr. Vela. She admitted patient.) Discharge Plan Dx/Rx/DC Orders Clinical Impression: Urinary tract infection, DM (diabetes mellitus), type 2, Obesity, morbid, BMI 40.0-49.9, Acute hypotension, Acute alteration in mental status, 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 mellitus, Acute hyperglycemia Disposition Disposition: Acute Care Hospital [facility] What to do if you have Problems For any increased pain, shortness of breath, bleeding, nausea or vomiting, chest pain, or any unexpected problems, contact your Primary Care Provider. Call [facility] ([phone]) or report to the closest Emergency Room. Call 911 if necessary. 11/04/24 1501 <Electronically signed by Rebecca MAY> Cosigner Signature (if applicable): 11/04/24 1514 <Electronically signed by Issa Chapin MD> CC: Dr. Homer Bradford MD ~ Signed [facility] Work Phone: 1(985) 164-448804-09-2025 NoteHNO ID: [id number] Author: HOMER BRADFORD MD Service: ? Author Type: Physician Type: Progress Notes Filed: 10/24/2024 20:17 Note Text: 12. Incontinence of feces, unspecified fecal incontinence type - ICD9: 787.60, ICD10: R15.9 - patient getting pull ups to help with management and reducing skin break down 13. Mixed incontinence urge and stress (male)(female) - ICD9: 788.33, ICD10: N39.46 - follows with urology for management. - patient getting pull ups to help with management and reducing skin break down Homer Bradford, [facility]03-07-2025 Discharge summary Author Marco Jones [facility] Note Date/Time September 21, 2024 2:20 pm [facility] Medical Records Department [address] [place] [id number] Discharge Summary 09/21/24 1228 MR#: [id number] Acct: [id number] Name: PERNELL RODRIGUEZ Rep #:[id number] : 1960 64 From: Marco Jones MD PCP: Dr. Homer Bradford MD Status:ADM IN Location: [place] [address]- Providers Date of Admission: 09/12/24 Date of Discharge: 09/21/24 Primary Care Physician: Dr. Homer Bradford MD Consultations 09/12/24 16:02 Consult: Tele-Neurology Routine Consulting Provider: [facility] Reason for Consult: Acute Ischemic Stroke/TIA EMERGENT Consult: No MD Notified: Yes Date Notified: 09/12/24 Time Notified: 16:21 Method of Notification: Answering Service Nursing Unit Staff Notify [facility] of Tele-Neurology Consult: Yes Reason For Visit: CVA, COVID Diagnosis Discharge Diagnosis (1) Stroke: Status: Acute Code(s): I63.9 - Cerebral infarction, unspecified Plan 1. TIA ? MRI is negative ? Echo is unremarkable ? Continue with Lipitor and Eliquis as well as aspirin 2. COVID ? Doing well on room air ? Received Decadron 12 09/21/2024 3. Essential HTN/HLD/paroxysmal A-fib ? Continue with Eliquis ? Continue with her home blood pressure medications ? Will monitor make adjustments as necessary ? Renal function is climbing so we will hold Lasix 4. GERD ? Stable ? Continue with PPI Medications at Discharge Home Medications lovastatin 20 mg tablet 20 mg PO QDAY cholesterol 06/22/17 ipratropium 0.5 mg-albuterol 3 mg (2.5 mg base)/3 mL nebulization soln 3 ml inhalation Q4HWA.RT PRN shortness of breath or wheezing #0 mL 09/07/21 omega-3 fatty acids-fish oil 360 mg-1,200 mg capsule (Fish Oil) 1 cap PO BID Joints 03/04/23 omeprazole 40 mg capsule,delayed release 40 mg PO DAILY Gerd 11/18/23 albuterol sulfate 90 mcg/actuation aerosol inhaler (Ventolin HFA) 1 puff inhalation Q6H 30 days #8.5 grams 09/21/24 apixaban 5 mg tablet (Eliquis) 5 mg PO Q12H anticoagulant 30 days #60 tabs 09/21/24 aspirin 81 mg chewable tablet 81 mg PO BREAKFAST 30 days #30 tabs 09/21/24 citalopram 10 mg tablet (Celexa) 10 mg PO DAILY depression 30 days #30 tabs 09/21/24 furosemide 20 mg tablet 20 mg PO BID Diuretic 30 days #60 tabs 09/21/24 lorazepam 0.5 mg tablet (Ativan) 0.5 mg PO Q12H PRN Anxiety 30 days #60 tabs 09/21/24 quetiapine 200 mg tablet,extended release 24 hr 200 mg PO BID Bipolar 30 days #30 tabs 09/21/24 trazodone 100 mg tablet 200 mg (2 x 100 mg) PO QHS Sleep 30 days #30 tabs 09/21/24 Hospital Course Operations None Procedures None Summary of Care Provided Minutes Spent on Discharge: 20 Hospital Course: 64-year-old female here for concerns regarding difficulty in speaking and evaluation for TIA. Stroke evaluation was negative, she was waiting for a bed as she is homeless. She is continue with home cardiovascular medication and is now being discharged to [facility]. Physical Exam Const alert, oriented x3 and no apparent distress General Appearance: cooperative and comfortable HEENT normocephalic Eyes PERRL Neck no lymphadenopathy Resp normal respiratory effort Cardio regular rate and regular rhythm GI normal to inspection, nondistended, normoactive bowel sounds Extremity normal to inspection Skin no rashes or lesions noted Neuro oriented x3, CN's II-XII intact bilaterally and moves all extremities Medical Records Data Homelessness:: Unsheltered Weight / BMI Weight Weight: 260 lb 12.909 oz Body Mass Index (BMI) 45.4 ABG / Lab / Microbiology Data 09/19/24 05:12 09/19/24 05:12 Laboratory: Laboratory Results - last 24 hr 09/20/24 17:22: POC Glucose 208 H 09/20/24 22:06: POC Glucose 216 H 09/21/24 05:48: POC Glucose 177 H 09/21/24 12:04: POC Glucose 175 H Microbiology: Microbiology 09/12/24 12:00 Blood Culture (Wb) - Right Hand Blood Culture - Final No growth in 5 days. 09/12/24 14:25 Blood Culture (Wb) - Anticubital Left Blood Culture - Final No growth in 5 days. 09/12/24 12:30 Urine, Catheterized Urine Culture - Final Culture exhibits no growth. 09/12/24 11:22 Mucosa - Nose SARS-CoV-2, Influenza & RSV (PCR) - Final SARS-CoV-2 (COVID 19) D/C Instructions Discharge Diet: No restrictions DC O2, CPAP, BIPAP Needs Home O2 Discharge instructions: No DC home with Oxygen: No Meaningful Use Info Meaningful Use Meaningful Use Diagnoses (Choose all that apply): None applicable Ischemic Stroke Statin Dosing Therapy Reference: STATIN DOSE THERAPY REFERENCE: * Patients > 75 years receive moderate or high dose statin therapy. * Patients 75 years or YOUNGER should receive HIGH intensity statin dose unless contraindicated. You will be required to document reason for non-treatment if statin daily dose does not meet guidelines. HIGH DOSE STATIN THERAPY DAILY Atorvastatin > than or = to 40 mg Rosuvastatin > than or = to 20 mg Amlodipine + Atorvastatin > than or = to 2.5/40 mg Ezetimibe + Simvastatin 10/80 mg Simvastatin 80mg Discharge Plan Admission Admit Date/Time: 09/12/24 14:50 Primary Reason for Your Visit: Dizziness Attending Provider: Marco Jones Primary Care Provider: Homer Bradford Consulting Providers: Jonathan Butcher; Kristen Simons; Leyda Celis; Hodan Chapa; Leah Hartman; Long Zamarripa; Faustina Bach; Tomás Willis; Stuart Balbuena; Kamar Redmond; Chioma Hsieh; Dennys Ryan; Lori Jacobs; Elisabeth Yung; Jovanny García; Frank Yusuf; Ariella Morrison; Sandor Zaldivar; Flores Pruitt; Martha Irene;Wilfredo Denton; Guevara Collins Discharge Orders/Prescriptions Prescriptions: New aspirin 81 mg Tablet,Chewable 81 mg PO BREAKFAST 30 Days Qty: 30 0RF Continued lovastatin 20 mg tablet 20 mg PO QDAY omega-3 fatty acids-fish oil [Fish Oil] 360-1,200 mg capsule 1 cap PO BID ipratropium-albuterol 0.5 mg-3 mg(2.5 mg base)/3 mL Solution For Nebulization 3 ml inhalation Q4HWA.RT PRN (Reason: shortness of breath or wheezing) Qty: 00RF citalopram [Celexa] 10 mg tablet 10 mg PO DAILY 30 Days Qty: 30 0RF lorazepam [Ativan] 0.5 mg tablet 0.5 mg PO Q12H PRN (Reason: Anxiety) 30 Days Qty: 60 0RF trazodone 100 mg tablet 200 mg PO QHS 30 Days Qty: 30 0RF furosemide 20 mg tablet 20 mg PO BID 30 Days Qty: 60 0RF albuterol sulfate [Ventolin HFA] 90 mcg/actuation HFA aerosol inhaler 1 puff INHALATION Q6H 30 Days Qty: 8.5 12RF quetiapine 200 mg tablet extended release 24 hr 200 mg PO BID 30 Days Qty: 30 0RF Patient Comments: [NO ORIGINAL SIG] Eliquis 5 mg tablet 5 mg PO Q12H 30 Days Qty: 60 0RF omeprazole 40 mg capsule,delayed release(DR/EC) 40 mg PO DAILY Discontinued hyoscyamine sulfate [Oscimin SR] 0.375 mg tablet extended release 12 hr 0.375 mg PO BID vitamin B complex [B Complex-Vitamin B12] Tablet 1 tab PO BID Referrals / Follow Up: Homer Bradford MD [Primary Care Provider] - Disposition Disposition (needs filled in before D/C Order can be placed): Home, Self Care 09/21/24 1420 <Electronically signed by Marco Jones MD> Cosigner Signature (if applicable): CC: Dr. Marco Jones MD; Dr. Homer Bradford MD~ Signed [facility] Work Phone: 1(922) 284-709903-07-2025 Discharge summary [facility] Medical Records Department [address] [place] [address] Discharge Summary 09/21/24 1228 MR#: [id number] Acct: [id number] Name: PERNELL RODRIGUEZ Rep #:[id number] : 1960 64 From: Marco Jones MD PCP: Dr. Homer Bradford MD Status:ADM IN Location: [id number] Providers Date of Admission: 09/12/24 Date of Discharge: 09/21/24 Primary Care Physician: Dr. Homer Bradford MD Consultations 09/12/24 16:02 Consult: Tele-Neurology Routine Consulting Provider: [facility] Reason for Consult: Acute Ischemic Stroke/TIA EMERGENT Consult: No MD Notified: Yes Date Notified: 09/12/24 Time Notified: 16:21 Method of Notification: Answering Service Nursing Unit Staff Notify [facility] of Tele-Neurology Consult: Yes Reason For Visit: CVA, COVID Diagnosis Discharge Diagnosis (1) Stroke: Status: Acute Code(s): I63.9 - Cerebral infarction, unspecified Plan 1. TIA ? MRI is negative ? Echo is unremarkable ? Continue with Lipitor and Eliquis as well as aspirin 2. COVID ? Doing well on room air ? Received Decadron 12 09/21/2024 3. Essential HTN/HLD/paroxysmal A-fib ? Continue with Eliquis ? Continue with her home blood pressure medications ? Will monitor make adjustments as necessary ? Renal function is climbing so we will hold Lasix 4. GERD ? Stable ? Continue with PPI Medications at Discharge Home Medications lovastatin 20 mg tablet 20 mg PO QDAY cholesterol 06/22/17 ipratropium 0.5 mg-albuterol 3 mg (2.5 mg base)/3 mL nebulization soln 3 ml inhalation Q4HWA.RT PRNshortness of breath or wheezing #0 mL 09/07/21 omega-3 fatty acids-fish oil 360 mg-1,200 mg capsule (Fish Oil) 1 cap PO BID Joints 03/04/23 omeprazole 40 mg capsule,delayed release 40 mg PO DAILY Gerd 11/18/23 albuterol sulfate 90 mcg/actuation aerosol inhaler (Ventolin HFA) 1 puff inhalation Q6H 30 days #8.5 grams 09/21/24 apixaban 5 mg tablet (Eliquis) 5 mg PO Q12H anticoagulant 30 days #60 tabs 09/21/24 aspirin 81 mg chewable tablet 81 mg PO BREAKFAST 30 days #30 tabs 09/21/24 citalopram 10 mg tablet (Celexa) 10 mg PO DAILY depression 30 days #30 tabs 09/21/24 furosemide 20 mg tablet 20 mg PO BID Diuretic 30 days #60 tabs 09/21/24 lorazepam 0.5 mg tablet (Ativan) 0.5 mg PO Q12H PRN Anxiety 30 days #60 tabs 09/21/24 quetiapine 200 mg tablet,extended release 24 hr 200 mg PO BID Bipolar 30 days #30 tabs 09/21/24 trazodone 100 mg tablet 200 mg (2 x 100 mg) PO QHS Sleep 30 days #30 tabs 09/21/24 Hospital Course Operations None Procedures None Summary of Care Provided Minutes Spent on Discharge: 20 Hospital Course: 64-year-old female here for concerns regarding difficulty in speaking and evaluation for TIA. Stroke evaluation was negative, she was waiting for a bed as she is homeless. She is continue with home cardiovascular medication and is now being discharged to hotel. Physical Exam Const alert, oriented x3 and no apparent distress General Appearance: cooperative and comfortable HEENT normocephalic Eyes PERRL Neck no lymphadenopathy Resp normal respiratory effort Cardio regular rate and regular rhythm GI normal to inspection, nondistended, normoactive bowel sounds Extremity normal to inspection Skin no rashes or lesions noted Neuro oriented x3, CN's II-XII intact bilaterally and moves all extremities Medical Records Data Homelessness:: Unsheltered Weight / BMI Weight Weight: 260 lb 12.909 oz Body Mass Index (BMI) 45.4 ABG / Lab / Microbiology Data 09/19/24 05:12 09/19/24 05:12 Laboratory: Laboratory Results - last 24 hr 09/20/24 17:22: POC Glucose 208 H 09/20/24 22:06: POC Glucose 216 H 09/21/24 05:48: POC Glucose 177 H 09/21/24 12:04: POC Glucose 175 H Microbiology: Microbiology 09/12/24 12:00 Blood Culture (Wb) - Right Hand Blood Culture - Final No growth in 5 days. 09/12/24 14:25 Blood Culture (Wb) - Anticubital Left Blood Culture - Final No growth in 5 days. 09/12/24 12:30 Urine, Catheterized Urine Culture - Final Culture exhibits no growth. 09/12/24 11:22 Mucosa - Nose SARS-CoV-2, Influenza & RSV (PCR) - Final SARS-CoV-2 (COVID 19) D/C Instructions Discharge Diet: No restrictions DC O2, CPAP, BIPAP Needs Home O2 Discharge instructions: No DC home with Oxygen: No Meaningful Use Info Meaningful Use Meaningful Use Diagnoses (Choose all that apply): None applicable Ischemic Stroke Statin Dosing Therapy Reference: STATIN DOSE THERAPY REFERENCE: * Patients > 75 years receive moderate or high dose statin therapy. * Patients 75 years or YOUNGER should receive HIGH intensity statin dose unless contraindicated. You will be required to document reason for non-treatment if statin daily dose does not meet guidelines. HIGH DOSE STATIN THERAPY DAILY Atorvastatin > than or = to 40 mg Rosuvastatin > than or = to 20 mg Amlodipine + Atorvastatin > than or = to 2.5/40 mg Ezetimibe + Simvastatin 10/80 mg Simvastatin 80mg Discharge Plan Admission Admit Date/Time: 09/12/24 14:50 Primary Reason for Your Visit: Dizziness Attending Provider: Marco Jones Primary Care Provider: Homer Bradford Consulting Providers: Jonathan Butcher; Kristen Simons; Leyda Celis; Hodan Chapa; Leah Hartman; Long Zamarripa; Faustina Bach; Tomás Willis; Stuart Balbuena; Kamar Redomnd; Chioma Hsieh; Dennys Ryan; Lori Jacobs; Elisabeth Yung; Jovanny García; Frank Yusuf; Ariella Morrison; Sandor Zaldivar; Flores Pruitt; Teto,Martha;Wilfredo Denton; Guevara Collins Discharge Orders/Prescriptions Prescriptions: New aspirin 81 mg Tablet,Chewable 81 mg PO BREAKFAST 30 Days Qty: 30 0RF Continued lovastatin 20 mg tablet 20 mg PO QDAY omega-3 fatty acids-fish oil [Fish Oil] 360-1,200 mg capsule 1 cap PO BID ipratropium-albuterol 0.5 mg-3 mg(2.5 mg base)/3 mL Solution For Nebulization 3 ml inhalation Q4HWA.RT PRN (Reason: shortness of breath or wheezing) Qty: 00RF citalopram [Celexa] 10 mg tablet 10 mg PO DAILY 30 Days Qty: 30 0RF lorazepam [Ativan] 0.5 mg tablet 0.5 mg PO Q12H PRN (Reason: Anxiety) 30 Days Qty: 60 0RF trazodone 100 mg tablet 200 mg PO QHS 30 Days Qty: 30 0RF furosemide 20 mg tablet 20 mg PO BID 30 Days Qty: 60 0RF albuterol sulfate [Ventolin HFA] 90 mcg/actuation HFA aerosol inhaler 1 puff INHALATION Q6H 30 Days Qty: 8.5 12RF quetiapine 200 mg tablet extended release 24 hr 200 mg PO BID 30 Days Qty: 30 0RF Patient Comments: [NO ORIGINAL SIG] Eliquis 5 mg tablet 5 mg PO Q12H 30 Days Qty: 60 0RF omeprazole 40 mg capsule,delayed release(DR/EC) 40 mg PO DAILY Discontinued hyoscyamine sulfate [Oscimin SR] 0.375 mg tablet extended release 12 hr 0.375 mg PO BID vitamin B complex [B Complex-Vitamin B12] Tablet 1 tab PO BID Referrals / Follow Up: Homer Bradford MD [Primary Care Provider] - Disposition Disposition (needs filled in before D/C Order can be placed): Home, Self Care 09/21/24 1420 Cosigner Signature (if applicable): CC: Dr. Marco Jones MD; Dr. Homer Bradford MD~ Signed [facility]03-07-20[facility] Progress note Author Marco Jones [facility] Note Date/Time September 20, 2024 11:5 8am [facility] Medical Records Department [address] [place] [address] Progress Note - Hospitalist 09/20/24 1155 MR#: [id number] Acct: [id number] Name: PERNELL RODRIGUEZ Rep #:[id number] 3 : 1960 64 From: Marco Jones MD PCP: Dr. Homer Bradford MD Status:ADM IN Location: [place] [address] Reason for Visit Reason for Visit: Diagnoses Cerebral infarction, unspecified (09/12/24) COVID-19 (09/12/24) Subjective Subjective Overall doing well, no active symptoms Would like to get discharged along with a ride to [place] to meet her brother if possible. Upon case management evaluation the brother declined taking care of her after discharge. Objective Data Objective Data Vital Signs: Vital Signs Temp Pulse Resp BP Pulse Ox O2 Del Method O2 Flow Rate 97.0 F L 63 18 101/44 L 92 Room Air 2 09/20/24 10:16 09/20/24 10:16 09/20/24 10:16 09/20/24 10:16 09/20/24 10:16 09/20/24 10:16 09/18/24 15:42 Oxygen Flow Rate (L/min) 2 Oxygen Delivery Method Room Air Weight: 260 lb 12.909 oz Body Mass Index (BMI) 45.4 Intake & Output: Intake and Output for Last 24 Hours 09/18/24 09/19/24 09/20/24 23:59 23:59 23:59 Intake Total 710 / 710 750 / 750 200 / 200 Output Total 600 / 600 600 / 600 Balance 710 / 710 150 / 150 -400 / -400 Lab / Micro Data Attestation: I reviewed the patient's lab results. 09/19/24 05:12 09/19/24 05:12 Labs: Laboratory Results - last 24 hr 09/19/24 11:48: POC Glucose 172 H 09/19/24 16:44: POC Glucose 142 H 09/19/24 23:11: POC Glucose 208 H 09/20/24 06:03: POC Glucose 119 H Micro: Microbiology 09/12/24 12:00 Blood Culture (Wb) - Right Hand Blood Culture - Final No growth in 5 days. 09/12/24 14:25 Blood Culture (Wb) - Anticubital Left Blood Culture - Final No growth in 5 days. 09/12/24 12:30 Urine, Catheterized Urine Culture - Final Culture exhibits no growth. 09/12/24 11:22 Mucosa - Nose SARS-CoV-2, Influenza & RSV (PCR) - Final SARS-CoV-2 (COVID 19) Social Homelessness:: Unsheltered Physical Exam Const alert and oriented x3 HEENT head/scalp atraumatic Eyes PERRL and EOMs intact bilaterally Neck no lymphadenopathy Cardio regular rate and regular rhythm GI normal to inspection, nondistended, normoactive bowel sounds Extremity normal to inspection and full ROM Neuro oriented x3 and CN's II-XII intact bilaterally Assessment & Plan Assessment/Plan (1) Stroke: PLAN: Plan 64-year-old female here for concerns regarding difficulty in speaking and evaluation for TIA. She is presently waiting bed placement to a homeless group home. 1. TIA ? MRI is negative ? Echo is unremarkable ? Continue with Lipitor and Eliquis as well as aspirin ? Appreciate neurology's assistance ? She has no deficits currently ? PT/OT evaluation 2. COVID ? Doing well on room air ?Continue Decadron till 09/22/2024 ? Given her homelessness attempting placement however they are hesitant secondary to her COVID diagnosis 3. Essential HTN/HLD/paroxysmal A-fib ? Continue with Eliquis ? Continue with her home blood pressure medications ? Will monitor make adjustments as necessary ? Renal function is climbing so we will hold Lasix 4. GERD ? Stable ? Continue with PPI Charges/Coding Visit Charges Inpatient E&M: 19795 Subs Hosp L1 09/20/24 1158 <Electronically signed by Marco Jones MD> Cosigner Signature (if applicable): CC: ~ Signed [facility] Work Phone: 1(591) 582-179103-06-2025 Progress note [facility] Medical Records Department [address] [place] [address] Progress Note - Hospitalist 09/20/24 1155 MR#: [id number] Acct: [id number] Name: PERNELL ORDRIGUEZ Rep #:[id number] 3 : 1960 64 From: Marco Jones MD PCP: Dr. Homer Bradford MD Status:ADM IN Location: [place] [id number] Reason for Visit Reason for Visit: Diagnoses Cerebral infarction, unspecified (09/12/24) COVID-19 (09/12/24) Subjective Subjective Overall doing well, no active symptoms Would like to get discharged along with a ride to [place] to meet her brother if possible. Uponcase management evaluation the brother declined taking care of her after discharge. Objective Data Objective Data Vital Signs: Vital Signs Temp Pulse Resp BP Pulse Ox O2 Del Method O2 Flow Rate 97.0 F L 63 18 101/44 L 92 Room Air 2 09/20/24 10:16 09/20/24 10:16 09/20/24 10:16 09/20/24 10:16 09/20/24 10:16 09/20/24 10:16 09/18/24 15:42 Oxygen Flow Rate (L/min) 2 Oxygen Delivery Method Room Air Weight: 260 lb 12.909 oz Body Mass Index (BMI) 45.4 Intake & Output: Intake and Output for Last 24 Hours 09/18/24 09/19/24 09/20/24 23:59 23:59 23:59 Intake Total 710 / 710 750 / 750 200 / 200 Output Total 600 / 600 600 / 600 Balance 710 / 710 150 / 150 -400 / -400 Lab / Micro Data Attestation: I reviewed the patient's lab results. 09/19/24 05:12 09/19/24 05:12 Labs: Laboratory Results - last 24 hr 09/19/24 11:48: POC Glucose 172 H 09/19/24 16:44: POC Glucose 142 H 09/19/24 23:11: POC Glucose 208 H 09/20/24 06:03: POC Glucose 119 H Micro: Microbiology 09/12/24 12:00 Blood Culture (Wb) - Right Hand Blood Culture - Final No growth in 5 days. 09/12/24 14:25 Blood Culture (Wb) - Anticubital Left Blood Culture - Final No growth in 5 days. 09/12/24 12:30 Urine, Catheterized Urine Culture - Final Culture exhibits no growth. 09/12/24 11:22 Mucosa - Nose SARS-CoV-2, Influenza & RSV (PCR) - Final SARS-CoV-2 (COVID 19) Social Homelessness:: Unsheltered Physical Exam Const alert and oriented x3 HEENT head/scalp atraumatic Eyes PERRL and EOMs intact bilaterally Neck no lymphadenopathy Cardio regular rate and regular rhythm GI normal to inspection, nondistended, normoactive bowel sounds Extremity normal to inspection and full ROM Neuro oriented x3 and CN's II-XII intact bilaterally Assessment & Plan Assessment/Plan (1) Stroke: PLAN: Plan 64-year-old female here for concerns regarding difficulty in speaking and evaluation for TIA. She is presently waiting bed placement to a homeless group home. 1. TIA ? MRI is negative ? Echo is unremarkable ? Continue with Lipitor and Eliquis as well as aspirin ? Appreciate neurology's assistance ? She has no deficits currently ? PT/OT evaluation 2. COVID ? Doing well on room air ?Continue Decadron till 09/22/2024 ? Given her homelessness attempting placement however they are hesitant secondary to her COVID diagnosis 3. Essential HTN/HLD/paroxysmal A-fib ? Continue with Eliquis ? Continue with her home blood pressure medications ? Will monitor make adjustments as necessary ? Renal function is climbing so we will hold Lasix 4. GERD ? Stable ? Continue with PPI Charges/Coding Visit Charges Inpatient E&M: 02695 Subs Hosp L1 09/20/24 1158 Cosigner Signature (if applicable): CC: ~ Signed [facility]03-05-2025 Progress note Author Marco Jones [facility] Note Date/Time September 19, 2024 1:16 pm [facility] Medical Records Department [address] [place] [id number] Progress Note - Hospitalist 09/19/24 1313 MR#: [id number] Acct: [id number] Name: PERNELL RODRIGUEZ [place] Rep #:[id number] 6 : 1960 64 From: Marco Jones MD PCP: Dr. Homer Bradford MD Status:ADM IN Location: [place] [address] Reason for Visit Reason for Visit: Diagnoses Cerebral infarction, unspecified (09/12/24) COVID-19 (09/12/24) Subjective Subjective Mild headaches, easily awaiting transfer to SNF Objective Data Objective Data Vital Signs: Vital Signs Temp Pulse Resp BP Pulse Ox O2 Del Method O2 Flow Rate 97.3 F L 66 18 108/60 93 Room Air 2 09/19/24 07:54 09/19/24 07:54 09/19/24 07:54 09/19/24 07:54 09/19/24 07:54 09/19/24 07:54 09/18/24 15:42 Oxygen Flow Rate (L/min) 2 Oxygen Delivery Method Room Air Weight: 260 lb 12.909 oz Body Mass Index (BMI) 45.4 Intake & Output: Intake and Output for Last 24 Hours 09/17/24 09/18/24 09/19/24 23:59 23:59 23:59 Intake Total 1800 / 2040 710 / 710 500 / 500 Output Total 1350 / 1350 600 / 600 Balance 450 / 690 710 / 710 -100 / -100 Lab / Micro Data 09/19/24 05:12 09/19/24 05:12 Labs: Laboratory Results - last 24 hr 09/18/24 16:30: POC Glucose 145 H 09/18/24 23:02: POC Glucose 185 H 09/19/24 05:12: WBC 18.1 H, RBC 4.55, Hgb 14.1, Hct 42.3, MCV 93.0, MCH 31.0, MCHC 33.3, RDW Std Deviation 44.3 H, RDW Coeff of Robert 13.0, Plt Count 302, MPV 10.1, Immature Gran % (Auto) 1.000 H, Neut % (Auto) 80.7 H, Lymph % (Auto) 11.7 L, Price % (Auto) 6.4, Eos % (Auto) 0.0, Baso % (Auto) 0.2, Absolute Neuts (auto)14.6 H, Absolute Lymphs (auto) 2.12, Nucleated RBC % 0, Sodium 136, Potassium 4.9, Chloride 102, Carbon Dioxide 23.5, Anion Gap 11, BUN 42 H, Creatinine 1.43 H, Estim Creat Clear Calc 50.72, Est GFR (MDRD) Non-Af 41 L, BUN/Creatinine Ratio 29.4 H, Glucose 128 H, Calcium 8.7 09/19/24 06:20: POC Glucose 127 H 09/19/24 11:48: POC Glucose 172 H Micro: Microbiology 09/12/24 12:00 Blood Culture (Wb) - Right Hand Blood Culture - Final No growth in 5 days. 09/12/24 14:25 Blood Culture (Wb) - Anticubital Left Blood Culture - Final No growth in 5 days. 09/12/24 12:30 Urine, Catheterized Urine Culture - Final Culture exhibits no growth. 09/12/24 11:22 Mucosa - Nose SARS-CoV-2, Influenza & RSV (PCR) - Final SARS-CoV-2 (COVID 19) Social Homelessness:: Unsheltered Physical Exam Const alert, oriented x3 and no apparent distress HEENT head/scalp atraumatic Mouth: oral and palatal mucosa normal Neck no lymphadenopathy Resp normal respiratory effort Cardio regular rate and regular rhythm GI normal to inspection, nondistended, normoactive bowel sounds Extremity normal to inspection Neuro oriented x3 and CN's II-XII intact bilaterally Psych affect normal Assessment & Plan Assessment/Plan (1) Stroke: PLAN: Plan 64-year-old female here for concerns regarding difficulty in speaking and evaluation for TIA. She is presently waiting bed placement 1. TIA ? MRI is negative ? Echo is unremarkable ? Continue with Lipitor and Eliquis as well as aspirin ? Appreciate neurology's assistance ? She has no deficits currently ? PT/OT 2. COVID ? intermittently requires oxygen though it is inconsistent ? Continue with Decadron ? Given her homelessness attempting placement however they are hesitant secondary to her COVID diagnosis 3. Essential HTN/HLD/paroxysmal A-fib ? Continue with Eliquis ? Continue with her home blood pressure medications ? Will monitor make adjustments as necessary ? Renal function is climbing so we will hold Lasix 4. GERD ? Stable ? Continue with PPI Homeless: New development. Patient just discharged from the psychiatric facility. Case management to assist. Anticipate the patient may require shelter facility when she is medically ready for discharge. Recent psychiatric hospitalization for roughly 20 days in [facility]. Continue with Seroquel and Ativan DVT: Eliquis Charges/Coding Visit Charges Inpatient E&M: 33001 Init Hosp L1 09/19/24 1316 <Electronically signed by Marco Jones MD> Cosigner Signature (if applicable): CC: ~ Signed [facility] Work Phone: 1(231) 882-451403-05-2025 Progress note [facility] Medical Records Department [address] [place] [address] Progress Note - Hospitalist 09/19/24 1313 MR#: [id number] Acct: [id number] Name: PERNELL RODRIGUEZ Rep #:[id number] 6 : 1960 64 From: Marco Jones MD PCP: Dr. Homer Bradford MD Status:ADM IN Location: [place] [address] Reason for Visit Reason for Visit: Diagnoses Cerebral infarction, unspecified (09/12/24) COVID-19 (09/12/24) Subjective Subjective Mild headaches, easily awaiting transfer to [facility] Objective Data Objective Data Vital Signs: Vital Signs Temp Pulse Resp BP Pulse Ox O2 Del Method O2 Flow Rate 97.3 F L 66 18 108/60 93 Room Air 2 09/19/24 07:54 09/19/24 07:54 09/19/24 07:54 09/19/24 07:54 09/19/24 07:54 09/19/24 07:54 09/18/24 15:42 Oxygen Flow Rate (L/min) 2 Oxygen Delivery Method Room Air Weight: 260 lb 12.909 oz Body Mass Index (BMI) 45.4 Intake & Output: Intake and Output for Last 24 Hours 09/17/24 09/18/24 09/19/24 23:59 23:59 23:59 Intake Total 1800 / 2040 710 / 710 500 / 500 Output Total 1350 / 1350 600 / 600 Balance 450 / 690 710 / 710 -100 / -100 Lab / Micro Data 09/19/24 05:12 09/19/24 05:12 Labs: Laboratory Results - last 24 hr 09/18/24 16:30: POC Glucose 145 H 09/18/24 23:02: POC Glucose 185 H 09/19/24 05:12: WBC 18.1 H, RBC 4.55, Hgb 14.1, Hct 42.3, MCV 93.0, MCH 31.0, MCHC 33.3, RDW Std Deviation 44.3 H, RDW Coeff of Robert 13.0, Plt Count 302, MPV 10.1, Immature Gran % (Auto) 1.000 H, Neut% (Auto) 80.7 H, Lymph % (Auto) 11.7 L, Price % (Auto) 6.4, Eos % (Auto) 0.0, Baso % (Auto) 0.2, Absolute Neuts (auto)14.6 H, Absolute Lymphs (auto) 2.12, Nucleated RBC % 0, Sodium 136, Potassium 4.9,Chloride 102, Carbon Dioxide 23.5, Anion Gap 11, BUN 42 H, Creatinine 1.43 H, Estim Creat Clear Calc 50.72, Est GFR (MDRD) Non-Af 41 L, BUN/Creatinine Ratio 29.4 H, Glucose 128 H, Calcium 8.7 09/19/24 06:20: POC Glucose 127 H 09/19/24 11:48: POC Glucose 172 H Micro: Microbiology 09/12/24 12:00 Blood Culture (Wb) - Right Hand Blood Culture - Final No growth in 5 days. 09/12/24 14:25 Blood Culture (Wb) - Anticubital Left Blood Culture - Final No growth in 5 days. 09/12/24 12:30 Urine, Catheterized Urine Culture - Final Culture exhibits no growth. 09/12/24 11:22 Mucosa - Nose SARS-CoV-2, Influenza & RSV (PCR) - Final SARS-CoV-2 (COVID 19) Social Homelessness:: Unsheltered Physical Exam Const alert, oriented x3 and no apparent distress HEENT head/scalp atraumatic Mouth: oral and palatal mucosa normal Neck no lymphadenopathy Resp normal respiratory effort Cardio regular rate and regular rhythm GI normal to inspection, nondistended, normoactive bowel sounds Extremity normal to inspection Neuro oriented x3 and CN's II-XII intact bilaterally Psych affect normal Assessment & Plan Assessment/Plan (1) Stroke: PLAN: Plan 64-year-old female here for concerns regarding difficulty in speaking and evaluation for TIA. She is presently waiting bed placement 1. TIA ? MRI is negative ? Echo is unremarkable ? Continue with Lipitor and Eliquis as well as aspirin ? Appreciate neurology's assistance ? She has no deficits currently ? PT/OT 2. COVID ? intermittently requires oxygen though it is inconsistent ? Continue with Decadron ? Given her homelessness attempting placement however they are hesitant secondary to her COVID diagnosis 3. Essential HTN/HLD/paroxysmal A-fib ? Continue with Eliquis ? Continue with her home blood pressure medications ? Will monitor make adjustments as necessary ? Renal function is climbing so we will hold Lasix 4. GERD ? Stable ? Continue with PPI Homeless: New development. Patient just discharged from the psychiatric facility. Case management to assist. Anticipate the patient may require shelter facility when she is medically ready for discharge. Recent psychiatric hospitalization for roughly 20 days in [facility]. Continue with Seroquel and Ativan DVT: Eliquis Charges/Coding Visit Charges Inpatient E&M: 60192 Init Hosp L1 09/19/24 1316 Cosigner Signature (if applicable): CC: ~ Signed [facility]03-04-2025 Progress note Author Guevara Collins [facility] Note Date/Time September 18, 2024 10:5 7am [facility] Medical Records Department [address] [place] [address] Progress Note - Hospitalist 09/18/24 1055 MR#: [id number] Acct: [id number] Name: PERNELL RODRIGUEZ Rep #:[id number] 1 : 1960 64 From: Guevara dyer MD PCP: Dr. Homer Bradford MD Status:ADM IN Location: [place] [address] Subjective Subjective No issues overnight, continue to await placement Objective Data Objective Data Vital Signs: Vital Signs Temp Pulse Resp BP Pulse Ox O2 Del Method O2 Flow Rate 97.2 F L 60 18 104/54 L 91 Nasal Cannula 2 09/18/24 08:05 09/18/24 08:05 09/18/24 08:05 09/18/24 08:05 09/18/24 08:05 09/18/24 08:05 09/18/24 08:25 Oxygen Flow Rate (L/min) 2 Oxygen Delivery Method Nasal Cannula Weight: 260 lb 12.909 oz Body Mass Index (BMI) 45.4 Intake & Output: Intake and Output for Last 24 Hours 09/17/24 09/18/24 09/19/24 03:59 03:59 03:59 Intake Total 1320 / 1320 1320 / 1320 120 / 120 Output Total 2200 / 2200 1350 / 1350 Balance -880 / -880 -30 / -30 120 / 120 Lab / Micro Data 09/17/24 05:46 09/18/24 06:28 Labs: Laboratory Results - last 24 hr 09/13/24 05:54: Sodium 140, Potassium 3.9, Chloride Direct 109 H, Carbon Wrjommx26.1 L, Anion Gap 10, BUN 14, Creatinine 1.3 H, Estim Creat Clear Calc 55.79, Est GFR (MDRD) Non-Af 48 L, BUN/Creatinine Ratio 11.3, Glucose 130 H, Calcium 8.4, Triglycerides 71, Cholesterol 94, LDL Cholesterol, Calc 33, VLDL Cholesterol 14, HDL Cholesterol 47, Cholesterol/HDL Ratio 2.00, TSH 0.483 09/17/24 05:46: WBC 12.8 H, RBC 4.53, Hgb 14.1, Hct 42.4, MCV 93.6, MCH 31.1, MCHC 33.3, RDW Std Deviation 45.1 H, RDW Coeff of Robert 13.0, Plt Count 291, MPV 10.6, Immature Gran % (Auto) 0.500, Neut % (Auto) 79.6 H, Lymph % (Auto) 13.2 L,Price % (Auto) 6.6, Eos % (Auto) 0.0, Baso % (Auto) 0.1, Absolute Neuts (auto) 10.2 H, Absolute Lymphs (auto) 1.69, Nucleated RBC % 0 09/17/24 11:34: POC Glucose 144 H 09/17/24 16:58: POC Glucose 238 H 09/17/24 21:38: POC Glucose 156 H 09/18/24 06:28: Sodium 139, Potassium 4.5, Chloride Direct 103, Carbon Dioxide 24.3, Anion Gap 12, BUN 43 H, Creatinine 1.39 H, Estim Creat Clear Calc 52.18, Est GFR (MDRD) Non-Af 43 L, BUN/Creatinine Ratio 30.9 H, Glucose 124 H, Calcium 8.9 09/18/24 06:30: POC Glucose 127 H Micro: Microbiology 09/12/24 12:00 Blood Culture (Wb) - Right Hand Blood Culture - Final No growth in 5 days. 09/12/24 14:25 Blood Culture (Wb) - Anticubital Left Blood Culture - Final No growth in 5 days. 09/12/24 12:30 Urine, Catheterized Urine Culture - Final Culture exhibits no growth. 09/12/24 11:22 Mucosa - Nose SARS-CoV-2, Influenza & RSV (PCR) - Final SARS-CoV-2 (COVID 19) Social Homelessness:: Unsheltered Physical Exam Narrative General: Alert, Oriented x3, Cooperative, No apparent distress HEENT: Atraumatic, PERRLA, EOMI, Normocephalic Oral: Moist Mucosa Neck: Supple, No JVD Lungs: Diminished, Normal air movement, No rhonchi, No wheeze, No rales Cardiovascular: Regular rate, Regular Rhythm, Normal S1, Normal S2, No murmurs Abdomen: Soft, Non Tender, Non-Distended, No Hepato-splenomegaly Extremities: No edema, Capillary Refill Less than 3 Seconds Skin: No rashes, No breakdown Musculoskeletal: No Tenderness to Palpation of Joints or Extremities Neurological: No focal neurological deficits, Motor Exam 5/5 strength throughout, Sensory exam intact to light touch and pain Psych/Mental Status: Normal affect, appropriate Assessment & Plan Assessment/Plan (1) Stroke: (2) COVID: PLAN: Plan 1. TIA ? MRI is negative ? Echo is unremarkable ? Continue with Lipitor and Eliquis as well as aspirin ? Appreciate neurology's assistance ? She has no deficits currently ? PT/OT 2. COVID ? intermittently requires oxygen though it is inconsistent ? Continue with Decadron ? Given her homelessness attempting placement however they are hesitant secondary to her COVID diagnosis 3. Essential HTN/HLD/paroxysmal A-fib ? Continue with Eliquis ? Continue with her home blood pressure medications ? Will monitor make adjustments as necessary ? Renal function is climbing so we will hold Lasix 4. GERD ? Stable ? Continue with PPI Homeless: New development. Patient just discharged from the psychiatric facility. Case management to assist. Anticipate the patient may require shelter facility when she is medically ready for discharge. Recent psychiatric hospitalization for roughly 20 days in [facility]. Continue with Seroquel and Ativan DVT: Eliquis Charges/Coding Visit Charges Inpatient E&M: 48541 Subs Hosp L1 09/18/24 1057 <Electronically signed by Guevara Collins MD> Cosigner Signature (if applicable): CC: ~ Signed [facility] Work Phone: 1(155) 813-975903-04-2025 Progress note [facility] Medical Records Department [address] [place] [address] Progress Note - Hospitalist 09/18/24 1055 MR#: [id number] Acct: [id number] Name: PERNELL RODRIGUEZ Rep #:[id number] : 1960 64 From: Guevara dyer MD PCP: Dr. Homer Bradford MD Status:ADM IN Location: [facility] [id number]- [id number] Subjective Subjective No issues overnight, continue to await placement Objective Data Objective Data Vital Signs: Vital Signs Temp Pulse Resp BP Pulse Ox O2 Del Method O2 Flow Rate 97.2 F L 60 18 104/54 L 91 Nasal Cannula 2 09/18/24 08:05 09/18/24 08:05 09/18/24 08:05 09/18/24 08:05 09/18/24 08:05 09/18/24 08:05 09/18/24 08:25 Oxygen Flow Rate (L/min) 2 Oxygen Delivery Method Nasal Cannula Weight: 260 lb 12.909 oz Body Mass Index (BMI) 45.4 Intake & Output: Intake and Output for Last 24 Hours 09/17/24 09/18/24 09/19/24 03:59 03:59 03:59 Intake Total 1320 / 1320 1320 / 1320 120 / 120 Output Total 2200 / 2200 1350 / 1350 Balance -880 / -880 -30 / -30 120 / 120 Lab / Micro Data 09/17/24 05:46 09/18/24 06:28 Labs: Laboratory Results - last 24 hr 09/13/24 05:54: Sodium 140, Potassium 3.9, Chloride Direct 109 H, Carbon Qghtmtg12.1 L, Anion Gap 10, BUN 14, Creatinine 1.3 H, Estim Creat Clear Calc 55.79, Est GFR (MDRD) Non-Af 48 L, BUN/Creatinine Ratio 11.3, Glucose 130 H, Calcium 8.4, Triglycerides 71, Cholesterol 94, LDL Cholesterol, Calc 33, VLDL Cholesterol 14, HDL Cholesterol 47, Cholesterol/HDL Ratio 2.00, TSH 0.483 09/17/24 05:46: WBC 12.8 H, RBC 4.53, Hgb 14.1, Hct 42.4, MCV 93.6, MCH 31.1, MCHC 33.3, RDW Std Deviation 45.1 H, RDW Coeff of Robert 13.0, Plt Count 291, MPV 10.6, Immature Gran % (Auto) 0.500, Neut %(Auto) 79.6 H, Lymph % (Auto) 13.2 L,Price % (Auto) 6.6, Eos % (Auto) 0.0, Baso % (Auto) 0.1, Absolute Neuts (auto) 10.2 H, Absolute Lymphs (auto) 1.69, Nucleated RBC % 0 09/17/24 11:34: POC Glucose 144 H 09/17/24 16:58: POC Glucose 238 H 09/17/24 21:38: POC Glucose 156 H 09/18/24 06:28: Sodium 139, Potassium 4.5, Chloride Direct 103, Carbon Dioxide 24.3, Anion Gap 12, BUN 43 H, Creatinine 1.39 H, Estim Creat Clear Calc 52.18, Est GFR (MDRD) Non-Af 43 L, BUN/Creatinine Ratio 30.9 H, Glucose 124 H, Calcium 8.9 09/18/24 06:30: POC Glucose 127 H Micro: Microbiology 09/12/24 12:00 Blood Culture (Wb) - Right Hand Blood Culture - Final No growth in 5 days. 09/12/24 14:25 Blood Culture (Wb) - Anticubital Left Blood Culture - Final No growth in 5 days. 09/12/24 12:30 Urine, Catheterized Urine Culture - Final Culture exhibits no growth. 09/12/24 11:22 Mucosa - Nose SARS-CoV-2, Influenza & RSV (PCR) - Final SARS-CoV-2 (COVID 19) Social Homelessness:: Unsheltered Physical Exam Narrative General: Alert, Oriented x3, Cooperative, No apparent distress HEENT: Atraumatic, PERRLA, EOMI, Normocephalic Oral: Moist Mucosa Neck: Supple, No JVD Lungs: Diminished, Normal air movement, No rhonchi, No wheeze, No rales Cardiovascular: Regular rate, Regular Rhythm, Normal S1, Normal S2, No murmurs Abdomen: Soft, Non Tender, Non-Distended, No Hepato-splenomegaly Extremities: No edema, Capillary Refill Less than 3 Seconds Skin: No rashes, No breakdown Musculoskeletal: No Tenderness to Palpation of Joints or Extremities Neurological: No focal neurological deficits, Motor Exam 5/5 strength throughout, Sensory exam intact to light touch and pain Psych/Mental Status: Normal affect, appropriate Assessment & Plan Assessment/Plan (1) Stroke: (2) COVID: PLAN: Plan 1. TIA ? MRI is negative ? Echo is unremarkable ? Continue with Lipitor and Eliquis as well as aspirin ? Appreciate neurology's assistance ? She has no deficits currently ? PT/OT 2. COVID ? intermittently requires oxygen though it is inconsistent ? Continue with Decadron ? Given her homelessness attempting placement however they are hesitant secondary to her COVID diagnosis 3. Essential HTN/HLD/paroxysmal A-fib ? Continue with Eliquis ? Continue with her home blood pressure medications ? Will monitor make adjustments as necessary ? Renal function is climbing so we will hold Lasix 4. GERD ? Stable ? Continue with PPI Homeless: New development. Patient just discharged from the psychiatric facility. Case management to assist. Anticipate the patient may require shelter facility when she is medically ready for discharge. Recent psychiatric hospitalization for roughly 20 days in [facility]. Continue with Seroquel and Ativan DVT: Eliquis Charges/Coding Visit Charges Inpatient E&M: 60152 Subs Hosp L1 09/18/24 1057 Cosigner Signature (if applicable): CC: ~ Signed [facility]03-03-2025 Progress note Author Guevara Collins [facility] Note Date/Time September 17, 2024 10:3 6am [facility] Medical Records Department [address] [place] [address] Progress Note - Hospitalist 09/17/24 1034 MR#: [id number] Acct: [id number] Name: PERNELL RODRIGUEZ [place] Rep #:[id number] : 1960 64 From: Guevara dyer MD PCP: Dr. Homer Bradford MD Status:ADM IN Location: [place] [address] Subjective Subjective No issues overnight, awaiting placement Objective Data Objective Data Vital Signs: Vital Signs Temp Pulse Resp BP Pulse Ox O2 Del Method O2 Flow Rate 96.8 F L 77 20 H 106/83 H 93 Room Air 3 09/17/24 08:53 09/17/24 08:53 09/17/24 08:53 09/17/24 08:53 09/17/24 08:53 09/17/24 08:55 09/14/24 20:30 Oxygen Flow Rate (L/min) 3 Oxygen Delivery Method Room Air Weight: 260 lb 12.909 oz Body Mass Index (BMI) 45.4 Intake & Output: Intake and Output for Last 24 Hours 09/16/24 09/17/24 09/18/24 03:59 03:59 03:59 Intake Total 825 / 825 1320 / 1320 0 / 0 Output Total 2200 / 2200 1350 / 1350 Balance 825 / 825 -880 / -880 -1350 / -1350 Lab / Micro Data 09/16/24 06:05 09/17/24 05:46 Labs: Laboratory Results - last 24 hr 09/16/24 12:10: POC Glucose 151 H 09/16/24 17:31: POC Glucose 196 H 09/16/24 20:53: POC Glucose 172 H 09/17/24 05:46: Sodium 138, Potassium 4.2, Chloride Direct 101, Carbon Dioxide 24.7, Anion Gap 13, BUN 43 H, Creatinine 1.41 H, Estim Creat Clear Calc 51.44, Est GFR (MDRD) Non-Af 42 L, BUN/Creatinine Ratio 30.4 H, Glucose 131 H, Calcium 8.8 09/17/24 06:29: POC Glucose 136 H Micro: Microbiology 09/12/24 12:30 Urine, Catheterized Urine Culture - Final Culture exhibits no growth. 09/12/24 14:25 Blood Culture (Wb) - Anticubital Left Blood Culture - Preliminary No growth in 48 hours. 09/12/24 12:00 Blood Culture (Wb) - Right Hand Blood Culture - Preliminary No growth in 48 hours. 09/12/24 11:22 Mucosa - Nose SARS-CoV-2, Influenza & RSV (PCR) - Final SARS-CoV-2 (COVID 19) Social Homelessness:: Unsheltered Physical Exam Narrative General: Alert, Oriented x3, Cooperative, No apparent distress HEENT: Atraumatic, PERRLA, EOMI, Normocephalic Oral: Moist Mucosa Neck: Supple, No JVD Lungs: Diminished, Normal air movement, No rhonchi, No wheeze, No rales Cardiovascular: Regular rate, Regular Rhythm, Normal S1, Normal S2, No murmurs Abdomen: Soft, Non Tender, Non-Distended, No Hepato-splenomegaly Extremities: No edema, Capillary Refill Less than 3 Seconds Skin: No rashes, No breakdown Musculoskeletal: No Tenderness to Palpation of Joints or Extremities Neurological: No focal neurological deficits, Motor Exam 5/5 strength throughout, Sensory exam intact to light touch and pain Psych/Mental Status: Normal affect, appropriate Assessment & Plan Assessment/Plan (1) Stroke: (2) COVID: PLAN: Plan 1. TIA ? MRI is negative ? Echo is unremarkable ? Continue with Lipitor and Eliquis as well as aspirin ? Appreciate neurology's assistance ? She has no deficits currently ? PT/OT 2. COVID ? Does not appear to be hypoxic at the moment ? Continue with Decadron ? Given her homelessness attempting placement however they are hesitant secondary to her COVID diagnosis 3. Essential HTN/HLD/paroxysmal A-fib ? Continue with Eliquis ? Continue with her home blood pressure medications ? Will monitor make adjustments as necessary ? Renal function is climbing so we will hold Lasix 4. GERD ? Stable ? Continue with PPI Homeless: New development. Patient just discharged from the psychiatric facility. Case management to assist. Anticipate the patient may require shelter facility when she is medically ready for discharge. Recent psychiatric hospitalization for roughly 20 days in [facility]. Continue with Seroquel and Ativan DVT: Eliquis Charges/Coding Visit Charges Inpatient E&M: 39478 Subs Hosp L2 09/17/24 1036 <Electronically signed by Guevara Collins MD> Cosigner Signature (if applicable): CC: ~ Signed [facility] Work Phone: 1(301) 700-589503-03-2025 Progress note [facility] Medical Records Department [address] [place] [address] Progress Note - Hospitalist 09/17/24 1034 MR#: [id number] Acct: [id number] Name: PERNELL RODRIGUEZ Rep #:[id number] : 1960 64 From: Guevara dyer MD PCP: Dr. Homer Bradford MD Status:ADM IN Location: [place] [address] Subjective Subjective No issues overnight, awaiting placement Objective Data Objective Data Vital Signs: Vital Signs Temp Pulse Resp BP Pulse Ox O2 Del Method O2 Flow Rate 96.8 F L 77 20 H 106/83 H 93 Room Air 3 09/17/24 08:53 09/17/24 08:53 09/17/24 08:53 09/17/24 08:53 09/17/24 08:53 09/17/24 08:55 09/14/24 20:30 Oxygen Flow Rate (L/min) 3 Oxygen Delivery Method Room Air Weight: 260 lb 12.909 oz Body Mass Index (BMI) 45.4 Intake & Output: Intake and Output for Last 24 Hours 09/16/24 09/17/24 09/18/24 03:59 03:59 03:59 Intake Total 825 / 825 1320 / 1320 0 / 0 Output Total 2200 / 2200 1350 / 1350 Balance 825 / 825 -880 / -880 -1350 / -1350 Lab / Micro Data 09/16/24 06:05 09/17/24 05:46 Labs: Laboratory Results - last 24 hr 09/16/24 12:10: POC Glucose 151 H 09/16/24 17:31: POC Glucose 196 H 09/16/24 20:53: POC Glucose 172 H 09/17/24 05:46: Sodium 138, Potassium 4.2, Chloride Direct 101, Carbon Dioxide 24.7, Anion Gap 13, BUN 43 H, Creatinine 1.41 H, Estim Creat Clear Calc 51.44, Est GFR (MDRD) Non-Af 42 L, BUN/Creatinine Ratio 30.4 H, Glucose 131 H, Calcium 8.8 09/17/24 06:29: POC Glucose 136 H Micro: Microbiology 09/12/24 12:30 Urine, Catheterized Urine Culture - Final Culture exhibits no growth. 09/12/24 14:25 Blood Culture (Wb) - Anticubital Left Blood Culture - Preliminary No growth in 48 hours. 09/12/24 12:00 Blood Culture (Wb) - Right Hand Blood Culture - Preliminary No growth in 48 hours. 09/12/24 11:22 Mucosa - Nose SARS-CoV-2, Influenza & RSV (PCR) - Final SARS-CoV-2 (COVID 19) Social Homelessness:: Unsheltered Physical Exam Narrative General: Alert, Oriented x3, Cooperative, No apparent distress HEENT: Atraumatic, PERRLA, EOMI, Normocephalic Oral: Moist Mucosa Neck: Supple, No JVD Lungs: Diminished, Normal air movement, No rhonchi, No wheeze, No rales Cardiovascular: Regular rate, Regular Rhythm, Normal S1, Normal S2, No murmurs Abdomen: Soft, Non Tender, Non-Distended, No Hepato-splenomegaly Extremities: No edema, Capillary Refill Less than 3 Seconds Skin: No rashes, No breakdown Musculoskeletal: No Tenderness to Palpation of Joints or Extremities Neurological: No focal neurological deficits, Motor Exam 5/5 strength throughout, Sensory exam intact to light touch and pain Psych/Mental Status: Normal affect, appropriate Assessment & Plan Assessment/Plan (1) Stroke: (2) COVID: PLAN: Plan 1. TIA ? MRI is negative ? Echo is unremarkable ? Continue with Lipitor and Eliquis as well as aspirin ? Appreciate neurology's assistance ? She has no deficits currently ? PT/OT 2. COVID ? Does not appear to be hypoxic at the moment ? Continue with Decadron ? Given her homelessness attempting placement however they are hesitant secondary to her COVID diagnosis 3. Essential HTN/HLD/paroxysmal A-fib ? Continue with Eliquis ? Continue with her home blood pressure medications ? Will monitor make adjustments as necessary ? Renal function is climbing so we will hold Lasix 4. GERD ? Stable ? Continue with PPI Homeless: New development. Patient just discharged from the psychiatric facility. Case management to assist. Anticipate the patient may require shelter facility when she is medically ready for discharge. Recent psychiatric hospitalization for roughly 20 days in [facility]. Continue with Seroquel and Ativan DVT: Eliquis Charges/Coding Visit Charges Inpatient E&M: 47502 Subs Hosp L2 09/17/24 1036 Cosigner Signature (if applicable): CC: ~ Signed [facility]03-03-2025 NoteHNO ID: [id number] Author: ASPEN BELL LPN Service: ? Author Type: LICENSED NURSE Type: Progress Notes Filed: 09/17/2024 08:01 Note Text: Scan on 09/14/2024 3:40 PM by ProviderGita PA-C: Consultation - Neurology [facility]03-03-2025 History of Present illness Narrative* Aspen Bell LPN - 09/17/2024 8:00 AM EST Scan on 09/14/2024 3:40 PM by Gita Curtis PA-C: [facility] Note Date/Time September 16, 2024 9:26 am [facility] Medical Records Department [address] [place] [address] Progress Note - Hospitalist 09/16/24924 MR#: [id number] Acct: [id number] Name: PERNELL RODRIGUEZ Rep #:[id number] : 1960 64 From: Guevara dyer MD PCP: Dr. Homer Bradford MD Status:ADM IN Location: [place] [address] Subjective Subjective No issues overnight, maintaining oxygen saturations on room air Objective Data Objective Data Vital Signs: Vital Signs Temp Pulse Resp BP Pulse Ox O2 Del Method O2 Flow Rate 97.1 F L 59 L 16 110/56 L 93 Room Air 3 09/16/24 01:02 09/16/24 08:18 09/16/24 08:18 09/16/24 01:02 09/16/24 08:18 09/16/24 08:18 09/14/24 20:30 Oxygen Flow Rate (L/min) 3 Oxygen Delivery Method Room Air Weight: 260 lb 12.909 oz Body Mass Index (BMI) 45.4 Intake & Output: Intake and Output for Last 24 Hours 09/15/24 09/16/24 09/17/24 03:59 03:59 03:59 Intake Total 150 / 150 825 / 825 600 / 600 Output Total 1250 / 1250 2200 / 2200 Balance -1100 / -1100 825 / 825 -1600 / -1600 Lab / Micro Data 09/16/24 06:05 09/16/24 06:05 Labs: Laboratory Results - last 24 hr 09/15/24 11:50: POC Glucose 118 H 09/15/24 17:12: POC Glucose 141 H 09/15/24 21:47: POC Glucose 143 H 09/16/24 06:05: WBC 8.9, RBC 4.43, Hgb 13.7, Hct 41.8, MCV 94.4, MCH 30.9, MCHC 32.8, RDW Std Deviation 45.6 H, RDW Coeff of Robert 13.1, Plt Count 263, MPV 10.4, Immature Gran % (Auto) 0.300, Neut % (Auto) 81.1 H, Lymph % (Auto) 11.4 L, Price % (Auto) 7.1, Eos % (Auto) 0.0, Baso % (Auto) 0.1, Absolute Neuts (auto) 7.2, Absolute Lymphs (auto) 1.02, Nucleated RBC % 0, Sodium 140, Potassium 4.3, Chloride Direct 104, Carbon Dioxide 25.6, Anion Gap 11, BUN 31 H, Creatinine 1.32 H, Estim Creat Clear Calc 54.94, Est GFR (MDRD) Non-Af 46 L, BUN/CreatinineRatio 23.4 H, Glucose 136 H, Calcium 9.2 09/16/24 06:29: POC Glucose 135 H Micro: Microbiology 09/12/24 12:30 Urine, Catheterized Urine Culture - Final Culture exhibits no growth. 09/12/24 14:25 Blood Culture (Wb) - Anticubital Left Blood Culture - Preliminary No growth in 48 hours. 09/12/24 12:00 Blood Culture (Wb) - Right Hand Blood Culture - Preliminary No growth in 48 hours. 09/12/24 11:22 Mucosa - Nose SARS-CoV-2, Influenza & RSV (PCR) - Final SARS-CoV-2 (COVID 19) Social Homelessness:: Unsheltered Physical Exam Narrative General: Alert, Oriented x3, Cooperative, No apparent distress HEENT: Atraumatic, PERRLA, EOMI, Normocephalic Oral: Moist Mucosa Neck: Supple, No JVD Lungs: Diminished, Normal air movement, No rhonchi, No wheeze, No rales Cardiovascular: Regular rate, Regular Rhythm, Normal S1, Normal S2, No murmurs Abdomen: Soft, Non Tender, Non-Distended, No Hepato-splenomegaly Extremities: No edema, Capillary Refill Less than 3 Seconds Skin: No rashes, No breakdown Musculoskeletal: No Tenderness to Palpation of Joints or Extremities Neurological: No focal neurological deficits, Motor Exam 5/5 strength throughout, Sensory exam intact to light touch and pain Psych/Mental Status: Normal affect, appropriate Assessment & Plan Assessment/Plan (1) Stroke: (2) COVID: PLAN: Plan 1. TIA ? MRI is negative ? Echo is unremarkable ? Continue with Lipitor and Eliquis as well as aspirin ? Appreciate neurology's assistance ? She has no deficits currently ? PT/OT 2. COVID ? Does not appear to be hypoxic at the moment ? Continue with Decadron ? Given her homelessness attempting placement however they are hesitant secondary to her COVID diagnosis 3. Essential HTN/HLD/paroxysmal A-fib ? Continue with Eliquis ? Continue with her home blood pressure medications ? Will monitor make adjustments as necessary ?Continue with Lasix and monitor renal function 4. GERD ? Stable ? Continue with PPI Homeless: New development. Patient just discharged from the psychiatric facility. Case management to assist. Anticipate the patient may require shelter facility when she is medically ready for discharge. Recent psychiatric hospitalization for roughly 20 days in [facility]. Continue with Seroquel and Ativan DVT: Eliquis Charges/Coding Visit Charges Inpatient E&M: 93979 Subs Hosp L2 09/16/24925 <Electronically signed by Guevara Collins MD> Cosigner Signature (if applicable): CC: ~ Signed [facility] Work Phone: 1(825) 783-155803-02-2025 Progress note Author Guevara Collins [facility] Note Date/Time September 16, 2024 9:24 am [facility] Medical Records Department [address] [place] [address] Progress Note - Hospitalist 09/16/24923 MR#: [id number] Acct: [id number] Name: PERNELL RODRIGUEZ [place] Rep #:[id number] : 1960 64 From: Guevara dyer MD PCP: Dr. Homer Bradford MD Status:ADM IN Location: [place] [address] Reason for Visit Reason for Visit: Diagnoses Cerebral infarction, unspecified (09/12/24) COVID-19 (09/12/24) Objective Data Objective Data Vital Signs: Vital Signs Temp Pulse Resp BP Pulse Ox O2 Del Method O2 Flow Rate 97.1 F L 59 L 16 110/56 L 93 Room Air 3 09/16/24 01:02 09/16/24 08:18 09/16/24 08:18 09/16/24 01:02 09/16/24 08:18 09/16/24 08:18 09/14/24 20:30 Oxygen Flow Rate (L/min) 3 Oxygen Delivery Method Room Air Weight: 260 lb 12.909 oz Body Mass Index (BMI) 45.4 Intake & Output: Intake and Output for Last 24 Hours 09/15/24 09/16/24 09/17/24 03:59 03:59 03:59 Intake Total 150 / 150 825 / 825 600 / 600 Output Total 1250 / 1250 2200 / 2200 Balance -1100 / -1100 825 / 825 -1600 / -1600 Lab / Micro Data 09/16/24 06:05 09/16/24 06:05 Labs: Laboratory Results - last 24 hr 09/15/24 11:50: POC Glucose 118 H 09/15/24 17:12: POC Glucose 141 H 09/15/24 21:47: POC Glucose 143 H 09/16/24 06:05: WBC 8.9, RBC 4.43, Hgb 13.7, Hct 41.8, MCV 94.4, MCH 30.9, MCHC 32.8, RDW Std Deviation 45.6 H, RDW Coeff of Robert 13.1, Plt Count 263, MPV 10.4, Immature Gran % (Auto) 0.300, Neut % (Auto) 81.1 H, Lymph % (Auto) 11.4 L, Price % (Auto) 7.1, Eos % (Auto) 0.0, Baso % (Auto) 0.1, Absolute Neuts (auto) 7.2, Absolute Lymphs (auto) 1.02, Nucleated RBC % 0, Sodium 140, Potassium 4.3, Chloride Direct 104, Carbon Dioxide 25.6, Anion Gap 11, BUN 31 H, Creatinine 1.32 H, Estim Creat Clear Calc 54.94, Est GFR (MDRD) Non-Af 46 L, BUN/CreatinineRatio 23.4 H, Glucose 136 H, Calcium 9.2 09/16/24 06:29: POC Glucose 135 H Micro: Microbiology 09/12/24 12:30 Urine, Catheterized Urine Culture - Final Culture exhibits no growth. 09/12/24 14:25 Blood Culture (Wb) - Anticubital Left Blood Culture - Preliminary No growth in 48 hours. 09/12/24 12:00 Blood Culture (Wb) - Right Hand Blood Culture - Preliminary No growth in 48 hours. 09/12/24 11:22 Mucosa - Nose SARS-CoV-2, Influenza & RSV (PCR) - Final SARS-CoV-2 (COVID 19) Social Homelessness:: Unsheltered 09/16/24923 <Electronically signed by Guevara Collins MD> Cosigner Signature (if applicable): CC: ~ Signed [facility] Work Phone: 1(691) 992-241203-02-2025 Progress note [facility] Medical Records Department [address] [place] [address] Progress Note - Hospitalist 09/16/24924 MR#: [id number] Acct: [id number] Name: PERNELL RODRIGUEZ Rep #:[id number] : 1960 64 From: Guevara dyer MD PCP: Dr. Homer Bradford MD Status:ADM IN Location: [place] [address] Subjective Subjective No issues overnight, maintaining oxygen saturations on room air Objective Data Objective Data Vital Signs: Vital Signs Temp Pulse Resp BP Pulse Ox O2 Del Method O2 Flow Rate 97.1 F L 59 L 16 110/56 L 93 Room Air 3 09/16/24 01:02 09/16/24 08:18 09/16/24 08:18 09/16/24 01:02 09/16/24 08:18 09/16/24 08:18 09/14/24 20:30 Oxygen Flow Rate (L/min) 3 Oxygen Delivery Method Room Air Weight: 260 lb 12.909 oz Body Mass Index (BMI) 45.4 Intake & Output: Intake and Output for Last 24 Hours 09/15/24 09/16/24 09/17/24 03:59 03:59 03:59 Intake Total 150 / 150 825 / 825 600 / 600 Output Total 1250 / 1250 2200 / 2200 Balance -1100 / -1100 825 / 825 -1600 / -1600 Lab / Micro Data 09/16/24 06:05 09/16/24 06:05 Labs: Laboratory Results - last 24 hr 09/15/24 11:50: POC Glucose 118 H 09/15/24 17:12: POC Glucose 141 H 09/15/24 21:47: POC Glucose 143 H 09/16/24 06:05: WBC 8.9, RBC 4.43, Hgb 13.7, Hct 41.8, MCV 94.4, MCH 30.9, MCHC 32.8, RDW Std Deviation 45.6 H, RDW Coeff of Robert 13.1, Plt Count 263, MPV 10.4, Immature Gran % (Auto) 0.300, Neut % (Auto) 81.1 H, Lymph % (Auto) 11.4 L, Price % (Auto) 7.1, Eos % (Auto) 0.0, Baso % (Auto) 0.1, AbsoluteNeuts (auto) 7.2, Absolute Lymphs (auto) 1.02, Nucleated RBC % 0, Sodium 140, Potassium 4.3, Chloride Direct 104, Carbon Dioxide 25.6, Anion Gap 11, BUN 31 H, Creatinine 1.32 H, Estim Creat Clear Calc 54.94, Est GFR (MDRD) Non-Af 46 L, BUN/CreatinineRatio 23.4 H, Glucose 136 H, Calcium 9.2 09/16/24 06:29: POC Glucose 135 H Micro: Microbiology 09/12/24 12:30 Urine, Catheterized Urine Culture - Final Culture exhibits no growth. 09/12/24 14:25 Blood Culture (Wb) - Anticubital Left Blood Culture - Preliminary No growth in 48 hours. 09/12/24 12:00 Blood Culture (Wb) - Right Hand Blood Culture - Preliminary No growth in 48 hours. 09/12/24 11:22 Mucosa - Nose SARS-CoV-2, Influenza & RSV (PCR) - Final SARS-CoV-2 (COVID 19) Social Homelessness:: Unsheltered Physical Exam Narrative General: Alert, Oriented x3, Cooperative, No apparent distress HEENT: Atraumatic, PERRLA, EOMI, Normocephalic Oral: Moist Mucosa Neck: Supple, No JVD Lungs: Diminished, Normal air movement, No rhonchi, No wheeze, No rales Cardiovascular: Regular rate, Regular Rhythm, Normal S1, Normal S2, No murmurs Abdomen: Soft, Non Tender, Non-Distended, No Hepato-splenomegaly Extremities: No edema, Capillary Refill Less than 3 Seconds Skin: No rashes, No breakdown Musculoskeletal: No Tenderness to Palpation of Joints or Extremities Neurological: No focal neurological deficits, Motor Exam 5/5 strength throughout, Sensory exam intact to light touch and pain Psych/Mental Status: Normal affect, appropriate Assessment & Plan Assessment/Plan (1) Stroke: (2) COVID: PLAN: Plan 1. TIA ? MRI is negative ? Echo is unremarkable ? Continue with Lipitor and Eliquis as well as aspirin ? Appreciate neurology's assistance ? She has no deficits currently ? PT/OT 2. COVID ? Does not appear to be hypoxic at the moment ? Continue with Decadron ? Given her homelessness attempting placement however they are hesitant secondary to her COVID diagnosis 3. Essential HTN/HLD/paroxysmal A-fib ? Continue with Eliquis ? Continue with her home blood pressure medications ? Will monitor make adjustments as necessary ?Continue with Lasix and monitor renal function 4. GERD ? Stable ? Continue with PPI Homeless: New development. Patient just discharged from the psychiatric facility. Case management to assist. Anticipate the patient may require shelter facility when she is medically ready for discharge. Recent psychiatric hospitalization for roughly 20 days in [facility]. Continue with Seroquel and Ativan DVT: Eliquis Charges/Coding Visit Charges Inpatient E&M: 17755 Subs Hosp L2 09/16/24 09 Cosigner Signature (if applicable): CC: ~ Signed [facility]03-02-2025 Progress note [facility] Medical Records Department [address] [place] [address] Progress Note - Hospitalist 09/16/24923 MR#: [id number] Acct: [id number] Name: PERNELL RODRIGUEZ Rep #:[id number] : 1960 64 From: Gueavra dyer MD PCP: Dr. Homer Bradford MD Status:ADM IN Location: [place] [address] Reason for Visit Reason for Visit: Diagnoses Cerebral infarction, unspecified (09/12/24) COVID-19 (09/12/24) Objective Data Objective Data Vital Signs: Vital Signs Temp Pulse Resp BP Pulse Ox O2 Del Method O2 Flow Rate 97.1 F L 59 L 16 110/56 L 93 Room Air 3 09/16/24 01:02 09/16/24 08:18 09/16/24 08:18 09/16/24 01:02 09/16/24 08:18 09/16/24 08:18 09/14/24 20:30 Oxygen Flow Rate (L/min) 3 Oxygen Delivery Method Room Air Weight: 260 lb 12.909 oz Body Mass Index (BMI) 45.4 Intake & Output: Intake and Output for Last 24 Hours 09/15/24 09/16/24 09/17/24 03:59 03:59 03:59 Intake Total 150 / 150 825 / 825 600 / 600 Output Total 1250 / 1250 2200 / 2200 Balance -1100 / -1100 825 / 825 -1600 / -1600 Lab / Micro Data 09/16/24 06:05 09/16/24 06:05 Labs: Laboratory Results - last 24 hr 09/15/24 11:50: POC Glucose 118 H 09/15/24 17:12: POC Glucose 141 H 09/15/24 21:47: POC Glucose 143 H 09/16/24 06:05: WBC 8.9, RBC 4.43, Hgb 13.7, Hct 41.8, MCV 94.4, MCH 30.9, MCHC 32.8, RDW Std Deviation 45.6 H, RDW Coeff of Robert 13.1, Plt Count 263, MPV 10.4, Immature Gran % (Auto) 0.300, Neut % (Auto) 81.1 H, Lymph % (Auto) 11.4 L, Price % (Auto) 7.1, Eos % (Auto) 0.0, Baso % (Auto) 0.1, AbsoluteNeuts (auto) 7.2, Absolute Lymphs (auto) 1.02, Nucleated RBC % 0, Sodium 140, Potassium 4.3, Chloride Direct 104, Carbon Dioxide 25.6, Anion Gap 11, BUN 31 H, Creatinine 1.32 H, Estim Creat Clear Calc 54.94, Est GFR (MDRD) Non-Af 46 L, BUN/CreatinineRatio 23.4 H, Glucose 136 H, Calcium 9.2 09/16/24 06:29: POC Glucose 135 H Micro: Microbiology 09/12/24 12:30 Urine, Catheterized Urine Culture - Final Culture exhibits no growth. 09/12/24 14:25 Blood Culture (Wb) - Anticubital Left Blood Culture - Preliminary No growth in 48 hours. 09/12/24 12:00 Blood Culture (Wb) - Right Hand Blood Culture - Preliminary No growth in 48 hours. 09/12/24 11:22 Mucosa - Nose SARS-CoV-2, Influenza & RSV (PCR) - Final SARS-CoV-2 (COVID 19) Social Homelessness:: Unsheltered 09/16/24 09 Cosigner Signature (if applicable): CC: ~ Signed [facility]03-01-2025 Progress note Author Guevara Collins [facility] Note Date/Time September 15, 2024 9:22 am [facility] Medical Records Department [address] [place] [address] Progress Note - Hospitalist 09/15/24920 MR#: [id number] Acct: [id number] Name: PERNELL RODRIGUEZ Rep #:[id number] : 1960 64 From: Guevara dyer MD PCP: Dr. Homer Bradford MD Status:ADM IN Location: [place] [address] Subjective Subjective Doing well, no issues overnight. She is feeling a little bit bloated and would like a stool softener Objective Data Objective Data Vital Signs: Vital Signs Temp Pulse Resp BP Pulse Ox O2 Del Method O2 Flow Rate 97.1 F L 86 18 119/49 L 94 Room Air 3 09/15/24 04:25 09/15/24 08:15 09/15/24 08:15 09/15/24 04:25 09/15/24 08:15 09/15/24 08:15 09/14/24 20:30 Oxygen Flow Rate (L/min) 3 Oxygen Delivery Method Room Air Weight: 260 lb 12.909 oz Body Mass Index (BMI) 45.4 Intake & Output: Intake and Output for Last 24 Hours 09/14/24 09/15/24 09/16/24 03:59 03:59 03:59 Intake Total 240 / 240 150 / 150 225 / 225 Output Total 700 / 700 1250 / 1250 Balance -460 / -460 -1100 / -1100 225 / 225 Lab / Micro Data 09/13/24 05:54 09/14/24 06:00 Labs: Laboratory Results - last 24 hr 09/14/24 11:39: POC Glucose 210 H 09/14/24 16:59: POC Glucose 185 H 09/14/24 22:53: POC Glucose 145 H 09/15/24 06:54: POC Glucose 117 H Micro: Microbiology 09/12/24 12:30 Urine, Catheterized Urine Culture - Final Culture exhibits no growth. 09/12/24 14:25 Blood Culture (Wb) - Anticubital Left Blood Culture - Preliminary No growth in 48 hours. 09/12/24 12:00 Blood Culture (Wb) - Right Hand Blood Culture - Preliminary No growth in 48 hours. 09/12/24 11:22 Mucosa - Nose SARS-CoV-2, Influenza & RSV (PCR) - Final SARS-CoV-2 (COVID 19) Social Homelessness:: Unsheltered Physical Exam Narrative General: Alert, Oriented x3, Cooperative, No apparent distress HEENT: Atraumatic, PERRLA, EOMI, Normocephalic Oral: Moist Mucosa Neck: Supple, No JVD Lungs: Diminished, Normal air movement, No rhonchi, No wheeze, No rales Cardiovascular: Regular rate, Regular Rhythm, Normal S1, Normal S2, No murmurs Abdomen: Soft, Non Tender, Non-Distended, No Hepato-splenomegaly Extremities: No edema, Capillary Refill Less than 3 Seconds Skin: No rashes, No breakdown Musculoskeletal: No Tenderness to Palpation of Joints or Extremities Neurological: No focal neurological deficits, Motor Exam 5/5 strength throughout, Sensory exam intact to light touch and pain Psych/Mental Status: Normal affect, appropriate Assessment & Plan Assessment/Plan (1) Stroke: (2) COVID: PLAN: Plan 1. TIA ? MRI is negative ? Echo is unremarkable ? Continue with Lipitor and Eliquis as well as aspirin ? Appreciate neurology's assistance ? She has no deficits currently ? PT/OT 2. COVID ? Does not appear to be hypoxic at the moment ? Continue with Decadron ? Given her homelessness attempting placement however they are hesitant secondary to her COVID diagnosis 3. Essential HTN/HLD/paroxysmal A-fib ? Continue with Eliquis ? Continue with her home blood pressure medications ? Will monitor make adjustments as necessary ? Can restart Lasix tomorrow as her kidney function is improving 4. GERD ? Stable ? Continue with PPI Homeless: New development. Patient just discharged from the psychiatric facility. Case management to assist. Anticipate the patient may require shelter facility when she is medically ready for discharge. Recent psychiatric hospitalization for roughly 20 days in [facility]. Continue with Seroquel and Ativan DVT: Eliquis Charges/Coding Visit Charges Inpatient E&M: 28107 Subs Hosp L2 09/15/24921 <Electronically signed by Guevara Collins MD> Cosigner Signature (if applicable): CC: ~ Signed [facility] Work Phone: 1(962) 226-118503-01-2025 Progress note [facility] Medical Records Department [address] [place] [address] Progress Note - Hospitalist 09/15/24920 MR#: [id number] Acct: [id number] Name: PERNELL RODRIGUEZ Rep #:[id number] : 1960 64 From: Guevara dyer MD PCP: Dr. Homer Bradford MD Status:ADM IN Location: [place] [address] Subjective Subjective Doing well, no issues overnight. She is feeling a little bit bloated and would like a stool softener Objective Data Objective Data Vital Signs: Vital Signs Temp Pulse Resp BP Pulse Ox O2 Del Method O2 Flow Rate 97.1 F L 86 18 119/49 L 94 Room Air 3 09/15/24 04:25 09/15/24 08:15 09/15/24 08:15 09/15/24 04:25 09/15/24 08:15 09/15/24 08:15 09/14/24 20:30 Oxygen Flow Rate (L/min) 3 Oxygen Delivery Method Room Air Weight: 260 lb 12.909 oz Body Mass Index (BMI) 45.4 Intake & Output: Intake and Output for Last 24 Hours 09/14/24 09/15/24 09/16/24 03:59 03:59 03:59 Intake Total 240 / 240 150 / 150 225 / 225 Output Total 700 / 700 1250 / 1250 Balance -460 / -460 -1100 / -1100 225 / 225 Lab / Micro Data 09/13/24 05:54 09/14/24 06:00 Labs: Laboratory Results - last 24 hr 09/14/24 11:39: POC Glucose 210 H 09/14/24 16:59: POC Glucose 185 H 09/14/24 22:53: POC Glucose 145 H 09/15/24 06:54: POC Glucose 117 H Micro: Microbiology 09/12/24 12:30 Urine, Catheterized Urine Culture - Final Culture exhibits no growth. 09/12/24 14:25 Blood Culture (Wb) - Anticubital Left Blood Culture - Preliminary No growth in 48 hours. 09/12/24 12:00 Blood Culture (Wb) - Right Hand Blood Culture - Preliminary No growth in 48 hours. 09/12/24 11:22 Mucosa - Nose SARS-CoV-2, Influenza & RSV (PCR) - Final SARS-CoV-2 (COVID 19) Social Homelessness:: Unsheltered Physical Exam Narrative General: Alert, Oriented x3, Cooperative, No apparent distress HEENT: Atraumatic, PERRLA, EOMI, Normocephalic Oral: Moist Mucosa Neck: Supple, No JVD Lungs: Diminished, Normal air movement, No rhonchi, No wheeze, No rales Cardiovascular: Regular rate, Regular Rhythm, Normal S1, Normal S2, No murmurs Abdomen: Soft, Non Tender, Non-Distended, No Hepato-splenomegaly Extremities: No edema, Capillary Refill Less than 3 Seconds Skin: No rashes, No breakdown Musculoskeletal: No Tenderness to Palpation of Joints or Extremities Neurological: No focal neurological deficits, Motor Exam 5/5 strength throughout, Sensory exam intact to light touch and pain Psych/Mental Status: Normal affect, appropriate Assessment & Plan Assessment/Plan (1) Stroke: (2) COVID: PLAN: Plan 1. TIA ? MRI is negative ? Echo is unremarkable ? Continue with Lipitor and Eliquis as well as aspirin ? Appreciate neurology's assistance ? She has no deficits currently ? PT/OT 2. COVID ? Does not appear to be hypoxic at the moment ? Continue with Decadron ? Given her homelessness attempting placement however they are hesitant secondary to her COVID diagnosis 3. Essential HTN/HLD/paroxysmal A-fib ? Continue with Eliquis ? Continue with her home blood pressure medications ? Will monitor make adjustments as necessary ? Can restart Lasix tomorrow as her kidney function is improving 4. GERD ? Stable ? Continue with PPI Homeless: New development. Patient just discharged from the psychiatric facility. Case management to assist. Anticipate the patient may require shelter facility when she is medically ready for discharge. Recent psychiatric hospitalization for roughly 20 days in [facility]. Continue with Seroquel and Ativan DVT: Eliquis Charges/Coding Visit Charges Inpatient E&M: 70888 Subs Hosp L2 09/15/24 0957 Cosigner Signature (if applicable): CC: ~ Signed [facility]02-28-2025 Progress note Author Guevara Collins [facility] Note Date/Time September 14, 2024 3:49pm [facility] Medical Records Department [address] [place] [id number] Progress Note - Hospitalist 09/14/24 1546 MR#: [id number] Acct: [id number] Name: PERNELL RODRIGUEZ Rep #:[id number] : 1960 64 From: Guevara dyer MD PCP: Dr. Homer Bradford MD Status:ADM IN Location: [place] [address] Subjective Subjective Doing well, no issues overnight. Maintaining her oxygen saturations on room air Objective Data Objective Data Vital Signs: Vital Signs Temp Pulse Resp BP Pulse Ox O2 Del Method O2 Flow Rate 96.4 F L 83 16 108/51 L 93 Room Air 2 09/14/24 15:20 09/14/24 15:20 09/14/24 15:20 09/14/24 15:20 09/14/24 15:20 09/14/24 15:20 09/13/24 10:11 Oxygen Flow Rate (L/min) 2 Oxygen Delivery Method Room Air Weight: 260 lb 12.909 oz Body Mass Index (BMI) 45.4 Intake & Output: Intake and Output for Last 24 Hours 09/13/24 09/14/24 09/15/24 03:59 03:59 03:59 Intake Total 2220 / 2220 240 / 240 150 / 150 Output Total 1850 / 1850 700 / 700 450 / 450 Balance 370 / 370 -460 / -460 -300 / -300 Lab / Micro Data 09/13/24 05:54 09/14/24 06:00 Labs: Laboratory Results - last 24 hr 09/13/24 17:01: POC Glucose 148 H 09/13/24 23:13: POC Glucose 129 H 09/14/24 06:00: Sodium 140, Potassium 4.1, Chloride Direct 108, Carbon Dioxide 21.7 L, Anion Gap 10, BUN 19, Creatinine 1.20, Estim Creat Clear Calc 60.44, EstGFR (MDRD) Non-Af 51 L, BUN/Creatinine Ratio 15.8, Glucose 132 H, Calcium 8.7 09/14/24 06:04: POC Glucose 130 H 09/14/24 11:39: POC Glucose 210 H Micro: Microbiology 09/12/24 12:30 Urine, Catheterized Urine Culture - Final Culture exhibits no growth. 09/12/24 14:25 Blood Culture (Wb) - Anticubital Left Blood Culture - Preliminary No growth in 48 hours. 09/12/24 12:00 Blood Culture (Wb) - Right Hand Blood Culture - Preliminary No growth in 48 hours. 09/12/24 11:22 Mucosa - Nose SARS-CoV-2, Influenza & RSV (PCR) - Final SARS-CoV-2 (COVID 19) Social Homelessness:: Unsheltered Physical Exam Narrative General: Alert, Oriented x3, Cooperative, No apparent distress HEENT: Atraumatic, PERRLA, EOMI, Normocephalic Oral: Moist Mucosa Neck: Supple, No JVD Lungs: Diminished, Normal air movement, No rhonchi, No wheeze, No rales Cardiovascular: Regular rate, Regular Rhythm, Normal S1, Normal S2, No murmurs Abdomen: Soft, Non Tender, Non-Distended, No Hepato-splenomegaly Extremities: No edema, Capillary Refill Less than 3 Seconds Skin: No rashes, No breakdown Musculoskeletal: No Tenderness to Palpation of Joints or Extremities Neurological: No focal neurological deficits, Motor Exam 5/5 strength throughout, Sensory exam intact to light touch and pain Psych/Mental Status: Normal affect, appropriate Assessment & Plan Assessment/Plan (1) Stroke: (2) COVID: PLAN: Plan 1. TIA ? MRI is negative ? Echo is unremarkable ? Continue with Lipitor and Eliquis as well as aspirin ? Appreciate neurology's assistance ? She has no deficits currently ? PT/OT 2. COVID ? Does not appear to be hypoxic at the moment ? Continue with Decadron ? Given her homelessness attempting placement however they are hesitant secondary to her COVID diagnosis 3. Essential HTN/HLD/paroxysmal A-fib ? Continue with Eliquis ? Continue with her home blood pressure medications ? Will monitor make adjustments as necessary ? Can restart Lasix tomorrow as her kidney function is improving 4. GERD ? Stable ? Continue with PPI Homeless: New development. Patient just discharged from the psychiatric facility. Case management to assist. Anticipate the patient may require shelter facility when she is medically ready for discharge. Recent psychiatric hospitalization for roughly 20 days in [facility]. Continue with Seroquel and Ativan DVT: Eliquis Charges/Coding Visit Charges Inpatient E&M: 69244 Subs Hosp L2 09/14/24 1549 <Electronically signed by Guevara Collins MD> Cosigner Signature (if applicable): CC: ~ Signed [facility] Work Phone: 1(247) 419-267602-28-2025 Consult note Author Long Zamarripa [facility] Note Date/Time September 14, 2024 3:22pm [facility] Medical Records Department [address] [place] [address] Consultation - Neurology 09/13/24 1413 MR#: [id number] Acct: [id number] Name: PERNELL RODRIGUEZ [place] Rep #:[id number] : 1960 64 From: Long Arthur PCP: Dr. Homer Bradford MD Status:ADM IN Location: [place] [address] Assessment and Plan: Neuro Assessment/Plan 64 y/o woman with h/o Afib on AC, recent admission to psych facility for concernfor blood clot p/w difficult speaking. In ER, noted to be COVID positive. CT Head - concern for left BG stroke. CTA - shows no LVO but shows lymphadenopathy.MRI brain- no acute stroke. LDL-84. A1c-5.4. FEP-HF-17-65%. Today, she reports feeling better with NIHSS-0. 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 I personally attended this patient and spent a total time of 50 minutes evaluating this patient including clinical assessment, review of chart, medical history imaging, and determining appropriate treatment and workup. HPI Consult Data Date of Consult: 09/13/24 HPI Narrative HPI Narrative: 64 y/o woman with h/o Afib on AC, recent admission to psych facility for concernfor blood clot p/w difficult speaking. In ER, noted to be COVID positive. CT Head - concern for left BG stroke. CTA - shows no LVO but shows lymphadenopathy.MRI brain- no acute stroke. LDL-84. A1c-5.4. FNP-FS-78-65%. Today, she reports feeling better with NIHSS-0. PFSH Medical History (Updated 09/12/24 @ 15:[address] Wilfredo Denton, DO) History of echocardiogram Wears glasses Anxiety Depression Post-menopausal History of renal disease High cholesterol Back pain TIA (transient ischemic attack) Gastric reflux Smoker Shortness of breath on exertion History of pain when walking History of edema Cardiology follow-up encounter History of heart attack Chest pain History of left heart catheterization (LHC) (~12/30/20) CKD (chronic kidney disease) stage 3, GFR 30-59 ml/min Lung nodule COPD (chronic obstructive pulmonary disease) Paroxysmal atrial fibrillation Elevated liver enzymes Acute respiratory failure with hypoxia Stroke IBS (irritable bowel syndrome) Hyperlipidemia Heart disease Migraines Frequent headaches Gastrointestinal problem Diabetes History of back problems Asthma Arthritis Home Medications ?Medication ?Instructions ?Recorded ?Last Taken ?Type hyoscyamine sulfate 0.375 mg 0.375 mg PO BID 06/22/17 09/08/20 History tablet,extended release,12 hr (Oscimin SR) lovastatin 20 mg tablet 20 mg PO QDAY cholesterol 09/11/24 History ipratropium 0.5 mg-albuterol 3 mg 3 ml inhalation Q4HW A.RT PRN 09/07/21 09/08/24 Rx (2.5 mg base)/3 mL nebulization shortness of breath or wheezing #0 soln mL lorazepam 0.5 mg tablet (Ativan) 0.5 mg PO Q12H PRN An xiety 09/28/21 09/11/24 History omega-3 fatty acids-fish oil 360 1 cap PO BID Joints 0 03/04/23 09/11/24 History mg-1,200 mg capsule (Fish Oil) vitamin B complex (B 1 tab PO BID General health 03/04/23 09/11/24 History Complex-Vitamin B12 tablet) albuterol sulfate 90 mcg/actuation 1 puff inhalation Q 6H #8.5 grams 05/13/23 Unknown Rx aerosol inhaler (Ventolin HFA) citalopram 10 mg tablet (Celexa) 10 mg PO DAILY depres lukas 11/18/23 09/11/24 History furosemide 20 mg tablet 20 mg PO BID Diuretic 09/11/24 History omeprazole 40 mg capsule,delayed 40 mg PO DAILY Gerd 0 11/18/23 09/11/24 History release trazodone 100 mg tablet 200 mg PO QHS Sleep 11/18/23 09/11/24 History apixaban 5 mg tablet (Eliquis) 5 mg PO Q12H anticoagul ant 09/12/24 09/12/24 History quetiapine 200 mg tablet,extended 200 mg PO BID Bipola r 09/12/24 09/11/24 History release 24 hr Allergy/AdvReac Type Severity Reaction Status Date / Time Penicillins Allergy Intermediate Hives Verified 09/12/24 10:32 carbamazepine (From Tegretol) AdvReac Intermediate Nausea Verified 09/12/24 10:32 benztropine AdvReac Unknown Verified 09/12/24 10:32 diazepam (From Valium) AdvReac Other Verified 09/12/24 10:32 Sulfa (Sulfonamide AdvReac Nausea Verified 09/12/24 10:32 Antibiotics) thioridazine AdvReac Nausea Verified 09/12/24 10:32 thioridazine HCl (From AdvReac Other Verified 09/12/24 10:32 Mellaril) Family History Grandmother Cancer stomach Father Cancer lung Sister Breast cancer Surgical History Hx of surgical procedure History of carpal tunnel surgery History of elbow surgery H/O shoulder surgery H/O hand surgery H/O dilation and curettage Hx of cholecystectomy History of tonsillectomy Social History household members: family housing: other details: Mobile home Smoking Status: Heavy Smoker (>10/day) alcohol intake: never substance use type: does not use caffeine: Yes what type of physical activity do you participate in: walking seatbelt use: always do you feel safe at home: Yes Vital Signs Vital Signs Vital Signs: 09/12/24 15:00 09/12/24 17:00 09/12/24 17:20 Temperature 99.4 F H 100.1 F H Temperature Source Oral Pulse Rate 101 H 101 H Pulse Strength Respiratory Rate 20 H 18 Respiratory Effort Respiratory Depth Respiratory Pattern Blood Pressure 93/56 L 107/53 L Blood Pressure Mean 68 71 Blood Pressure Source Monitor Blood Pressure Position Semi-Fowlers Blood Pressure Location Right Arm Pulse Ox 97 92 Oxygen Delivery Method Nasal Cannula Nasal Cannula Oxygen Flow Rate (L/min) 2 2 09/12/24 19:48 09/12/24 20:00 09/12/24 20:00 Temperature 96.6 F L Temperature Source Temporal Pulse Rate 93 Pulse Strength Normal (2+) Respiratory Rate 18 Respiratory Effort Respiratory Depth Respiratory Pattern Blood Pressure 112/50 L Blood Pressure Mean 70 Blood Pressure Source Monitor Blood Pressure Position Semi-Fowlers Blood Pressure Location Right Arm Pulse Ox 95 95 Oxygen Delivery Method Room Air Room Air Oxygen Flow Rate (L/min) 09/12/24 20:00 09/12/24 23:55 09/13/24 00:00 Temperature 97.2 F L 97.2 F L Temperature Source Temporal Temporal Pulse Rate 88 88 Pulse Strength Respiratory Rate 16 16 Respiratory Effort Normal Non-Labored Respiratory Depth Normal Respiratory Pattern Normal Blood Pressure 100/45 L 100/45 L Blood Pressure Mean 63 63 Blood Pressure Source Monitor Blood Pressure Position Semi-Fowlers Blood Pressure Location Right Arm Pulse Ox 92 92 Oxygen Delivery Method Room Air Room Air Room Air Oxygen Flow Rate (L/min) 09/13/24 04:00 09/13/24 04:00 09/13/24 07:17 Temperature 97.4 F L Temperature Source Oral Pulse Rate 82 65 Pulse Strength Respiratory Rate 18 16 Respiratory Effort Normal Non-Labored Respiratory Depth Normal Respiratory Pattern Normal Blood Pressure 101/49 L Blood Pressure Mean 66 Blood Pressure Source Monitor Blood Pressure Position Semi-Fowlers Blood Pressure Location Left Arm Pulse Ox 94 Oxygen Delivery Method Nasal Cannula Nasal Cannula Oxygen Flow Rate (L/min) 2 2 09/13/24 07:17 09/13/24 07:17 09/13/24 08:12 Temperature Temperature Source Pulse Rate Pulse Strength Respiratory Rate 16 Respiratory Effort Normal Normal Non-Labored Respiratory Depth Normal Normal Respiratory Pattern Normal Normal Blood Pressure Blood Pressure Mean Blood Pressure Source Blood Pressure Position Blood Pressure Location Pulse Ox 94 94 Oxygen Delivery Method Nasal Cannula Nasal Cannula Nasal Cannula Oxygen Flow Rate (L/min) 2 2 2 09/13/24 08:15 09/13/24 08:24 09/13/24 10:00 Temperature 96.8 F L Temperature Source Oral Pulse Rate 84 Pulse Strength Normal (2+) Respiratory Rate 18 Respiratory Effort Respiratory Depth Respiratory Pattern Blood Pressure 104/46 L Blood Pressure Mean 65 Blood Pressure Source Monitor Blood Pressure Position Semi-Fowlers Blood Pressure Location Left Forearm Pulse Ox 84 94 Oxygen Delivery Method Nasal Cannula Oxygen Flow Rate (L/min) 2 2 09/13/24 10:11 09/13/24 13:25 09/13/24 13:25 Temperature Temperature Source Pulse Rate 65 Pulse Strength Respiratory Rate 16 Respiratory Effort Respiratory Depth Respiratory Pattern Blood Pressure Blood Pressure Mean Blood Pressure Source Blood Pressure Position Blood Pressure Location Pulse Ox 94 93 Oxygen Delivery Method Room Air Oxygen Flow Rate (L/min) 2 Weight Weight: 118.3 kg Body Mass Index (BMI) 45.4 EEG Results Procedure Details EEG Procedure Details: PERNELL RODRIGUEZ is a 64 year old F with a past medical history of , who presents for evaluation of Electroencephalogram on DATE at TIME NIHSS NIHSS Nursing Documentation NIHSS Nursing Documentation: NIHSS: Ischemic Stroke/TIA Start: 09/12/24 16:02 Text: For ICU Patients: NIH sroke scale at Status: Complete presentation and every 2 hours or with change in RN caregiver Freq: [id number] Protocol: Activity Type Activity Date Activity User E-sign Co-sign Detail Recorded Client Recorded Date Recorded By Document 09/12/24 17:30 SHANIKA [id number] 09/12/24 17:32 SHANIKA 09/12/24 17:30 NIH Stroke Scale [NIHSS] A score of 0 is normal or asymptomatic . Total possible score is 42. Inpatient: RN or Physician to activate a stroke alert for onset of new stroke symptoms or with NIHSS increase >/= 3 points. Following change in neurological status, NIHSS will be performed per physician order or more frequently PRN. -1a. Level of Consciousness Alert; keenly responsive -1b. LOC Questions Answers BOTH questions correctly. -1c. LOC Commands Performs both tasks correctly . -2. Best Gaze Normal -3. Visual No visual loss -4. Facial Palsy Normal symmetrical movements -5a. Left Arm No drift; arm holds 90 (or 45 ) degrees for full 10 seconds -5b. Right Arm No drift; arm holds 90 (or 45 ) degrees for full 10 seconds -6a. Left Leg No drift; leg holds 30-degree position for full 5 seconds -6b. Right Leg No drift; leg holds 30-degree position for full 5 seconds -7. Limb Ataxia Absent -8. Sensory Normal; no sensory loss -9. Best Language No aphasia; normal -10. Dysarthria Normal -11. Extinction and Inattention No abnormality -Total 0 Query Text:A score of 0 is normal or asymptomatic. Total possible score is 42 . ED: Notify Physician for NIHSS increase by > / = 3 points. Inpatient: RN or Physician to activate a stroke alert for NIHSS increase of > / = 3 points. Coma Scale [Assess] -Eye Opening Spontaneous -Motor Obeys Commands -Verbal Oriented [Total] -Coma Scale Total 15 NIHSS: Ischemic Stroke/TIA Start: 09/12/24 16:02 Text: For PCU Patients: NIH and Neuro Check every 4 Status: Complete hours, PRN and with change in RN caregiver. Freq: [id number] Protocol: Activity Type Activity Date Activity User E-sign Co-sign Detail Recorded Client Recorded Date Recorded By Document 09/13/24 04:00 DOREEN [id number] 09/13/24 04:05 DOREEN 09/13/24 04:00 NIH Stroke Scale [NIHSS] A score of 0 is normal or asymptomatic . Total possible score is 42. Inpatient: RN or Physician to activate a stroke alert for onset of new stroke symptoms or with NIHSS increase >/= 3 points. Following change in neurological status, NIHSS will be performed per physician order or more frequently PRN. -1a. Level of Consciousness Alert; keenly responsive -1b. LOC Questions Answers BOTH questions correctly. -1c. LOC Commands Performs both tasks correctly . -2. Best Gaze Normal -3. Visual No visual loss -4. Facial Palsy Normal symmetrical movements -5a. Left Arm No drift; arm holds 90 (or 45 ) degrees for full 10 seconds -5b. Right Arm No drift; arm holds 90 (or 45 ) degrees for full 10 seconds -6a. Left Leg No drift; leg holds 30-degree position for full 5 seconds -6b. Right Leg No drift; leg holds 30-degree position for full 5 seconds -7. Limb Ataxia Absent -8. Sensory Normal; no sensory loss -9. Best Language No aphasia; normal -10. Dysarthria Normal -11. Extinction and Inattention No abnormality -Total 0 Query Text:A score of 0 is normal or asymptomatic. Total possible score is 42 . ED: Notify Physician for NIHSS increase by > / = 3 points. Inpatient: RN or Physician to activate a stroke alert for NIHSS increase of > / = 3 points. Coma Scale [Assess] -Eye Opening Spontaneous -Motor Obeys Commands -Verbal Oriented [Total] -Coma Scale Total 15 NIHSS 1a. Level of Consciousness: Alert; keenly responsive 1b. LOC Questions: Answers BOTH questions correctly. 1c. LOC Commands: Performs both tasks correctly. 2. Best Gaze: Normal 3. Visual: No visual loss 4. Facial Palsy: Normal symmetrical movements 5a. Left Arm: No drift; arm holds 90 (or 45) degrees for full 10 seconds 5b. Right Arm: No drift; arm holds 90 (or 45) degrees for full 10 seconds 6a. Left Leg: No drift; leg holds 30-degree position for full 5 seconds 6b. Right Leg: No drift; leg holds 30-degree position for full 5 seconds 7. Limb Ataxia: Absent 8. Sensory: Normal; no sensory loss 9. Best Language: No aphasia; normal 10. Dysarthria: Normal 11. Extinction and Inattention: No abnormality Total: 0 Physical Exam Narrative General: The patient appears nutritionally appropriate, well-groomed, and appears comfortable in no acute distress. Mental Status:? The patient?s mental status was normal including orientation.? Language was intact.? Cranial nerves:? Visual lloyd full, and extra-ocular motion was intact. Symmetric face. Motor: Normal strength in all extremities. Sensation: Intact to touch in all extremities.? Coordination:? Bilateral finger to nose was normal.? There was no dysmetria. Gait:? deferred. Lab / Micro Data 09/13/24 05:54 09/14/24 06:00 Labs: Laboratory Results - last 24 hr 09/12/24 19:55: POC Glucose 141 H 09/13/24 05:54: WBC 7.6, RBC 4.07 L, Hgb 12.9, Hct 39.3, MCV 96.6, MCH 31.7, MCHC 32.8, RDW Std Deviation 47.2 H, RDW Coeff of Robert 13.1, Plt Count 225, MPV 10.6, Immature Gran % (Auto) 0.500, Neut % (Auto) 79.9 H, Lymph % (Auto) 10.0 L, Price % (Auto) 9.5, Eos % (Auto) 0.0, Baso % (Auto) 0.1, Absolute Neuts (auto) 6.1, Absolute Lymphs (auto) 0.76 L, Nucleated RBC % 0, Sodium 140, Potassium 3.9, Chloride Direct 109 H, Carbon Dioxide 21.1 L, Anion Gap 10, BUN 14, Creatinine 1.3 H, Estim Creat Clear Calc 55.79, Est GFR (MDRD) Non-Af 48 L, BUN/Creatinine Ratio 11.3, Glucose 130 H, Hemoglobin A1c 6.0, Calcium 8.4, Triglycerides 71, Cholesterol 94, VLDL Cholesterol 14, HDL Cholesterol 47, Cholesterol/HDL Ratio 2.00, TSH 0.483 09/13/24 06:18: POC Glucose 128 H 09/13/24 11:28: POC Glucose 195 H Micro: Microbiology 09/12/24 11:22 Mucosa - Nose SARS-CoV-2, Influenza & RSV (PCR) - Final SARS-CoV-2 (COVID 19) Imaging Radiology Impression Head MRA 09/12/24 15:01 IMPRESSION: Diminutive caliber of the distal right vertebral artery may be congenital or developmental. Otherwise, negative MRA of the brain. Persistent origin of the right posterior cerebral artery. Reading Location: [facility] Neck MRA 09/12/24 15:01 IMPRESSION: Suboptimal examination due to artifact. There appears to be less than 50% stenosis of the carotid bulbs and proximal internal carotid arteries, although evaluation of the left carotid bulb and proximal left internal carotid artery is less than ideal. Follow-up contrast-enhanced CTA evaluation may be considered for more accurate evaluation of the carotid bulbs and proximal internal carotid arteries. Both vertebral arteries appear to be patent. Reading Location: [facility] Brain MRI 09/12/24 16:02 IMPRESSION: No acute intracranial abnormality. No evidence of acute infarction to correspond to the area of decreased attenuation in the left basal ganglia on same day noncontrast head CT. This may represent a prominent perivascular space. Patchy white matter hyperintensities in both cerebral hemispheres as above, which may be on the basis of chronic small-vessel ischemic disease. Mild paranasal sinus disease, as above. Partially empty sella. [facility] Active Medications Active Medications Active Medications: Current Medications Generic Name Dose Route Start Last Admin Trade Name Freq PRN Reason Stop Dose Admin Acetaminophen 650 mg 09/12/24 16:02 Acetaminophen 325 Mg Tablet PO Q6H PRN PRN Pain 1-10 Or Fever >100.7 Albuterol Sulfate 2.5 mg 09/12/24 16:30 09/13/24 13:24 Albuterol 2.5 Mg/3 Ml Vial.Neb. INHALATION 2.5 mg Q6H.RT MARIA DEL CARMEN Administration Albuterol/Ipratropium 3 ml 09/12/24 16:02 Ipratropium/Albuterol Sulfate 3 Ml Ampul.Neb INHALATION Q4HWA.RT PRN shortness of breath or wheezing Apixaban 5 mg 09/12/24 22:00 09/13/24 08:27 Apixaban 5 Mg Tablet PO 5 mg Q12 MARIA DEL CARMEN Administration Aspirin 81 mg 09/13/24 08:00 09/13/24 08:26 Aspirin 81 Mg Tab.Chew PO 81 mg BREAKFAST MARIA DEL CARMEN Administration Atorvastatin Calcium 5 mg 09/12/24 22:00 09/12/24 19:58 Atorvastatin Calcium 10 Mg Tablet PO 5 mg QHS MARIA DEL CAMREN Administration Citalopram Hydrobromide 10 mg 09/13/24 10:00 09/13/24 08:27 Citalopram 10 Mg Tablet PO 10 mg DAILY MARIA DEL CARMEN Administration Dexamethasone 6 mg 09/13/24 08:00 09/13/24 08:26 Dexamethasone 4 Mg Tablet PO 09/22/24 08:01 6 mg DAILY@0800 MARIA DEL CARMEN Administration Glucagon 1 mg 09/12/24 16:02 Glucagon 1 Mg/Ml Syringe IM X1 PRN Hypoglycemia Protocol Hydralazine HCl 5 mg 09/12/24 16:02 Hydralazine 20 Mg/Ml Vial IV 09/13/24 16:02 Q30M PRN maintain BP parameters with HR <60 Dextrose 250 mls @ 0 mls/hr 09/12/24 16:02 Dextrose 10%-Water IV .Q0M PRN HYPOGLYCEMIA Protocol As Directed Sodium Chloride 100 mls @ 15 mls/hr 09/12/24 16:07 IV .Q6H40M PRN SALINE FLUSH Insulin Human Lispro 0 unit 09/12/24 16:02 09/13/24 11:33 Insulin Lispro 100 Unit/Ml Insuln.Pen SC 2 u ACHS MARIA DEL CARMEN Administration Protocol Labetalol HCl 10 - 20 mg 09/12/24 16:02 Labetalol 20mg/4ml Syringe IV 09/13/24 16:02 Q10M PRN PRN maintain BP parameters with HR >/=60 Lorazepam 0.5 mg 09/12/24 16:02 09/12/24 20:05 Lorazepam 0.5 Mg Tablet PO 0.5 mg Q12H PRN Administration Anxiety Nystatin 1 applic 09/13/24 10:00 09/13/24 11:25 Nystatin Powder 15gm Bottle TOPICAL 1 applic BID MARIA DEL CARMEN Administration Protocol Ondansetron HCl 4 mg 09/12/24 16:02 Ondansetron 4 Mg/2 Ml Vial IV Q8H PRN PRN NAUSEA/VOMITING Pantoprazole Sodium 40 mg 09/13/24 10:00 09/13/24 08:27 Pantoprazole Sodium 40 Mg Tablet PO 40 mg DAILY MARIA DEL CARMEN Administration Quetiapine Fumarate 100 mg 09/12/24 18:00 09/13/24 11:25 Quetiapine 100 Mg Tablet PO 100 mg Q6 MARIA DEL CARMEN Administration Sodium Chloride 10 - 40 ml 09/12/24 16:07 09/12/24 19:59 0.9% Saline Lock 10 Ml Syringe IV 10 ml UD PRN Administration SALINE FLUSH Trazodone HCl 200 mg 09/12/24 22:00 09/12/24 19:58 Trazodone 100 Mg Tablet PO 200 mg QHS MARIA DEL CARMEN Administration 09/14/24 1522 <Electronically signed by Long Zamarripa MD> Cosigner Signature (if applicable): CC: Dr. Homer Bradford MD~ Signed [facility] Work Phone: 1(199) 875-741502-28-2025 Progress note [facility] Medical Records Department [address] [place] [address] Progress Note - Hospitalist 09/14/24 1546 MR#: [id number] Acct: [id number] Name: PERNELL RODRIGUEZ Rep #:[id number] : 1960 64 From: Guevara dyer MD PCP: Dr. Homer Bradford MD Status:ADM IN Location: [place] [address]- Subjective Subjective Doing well, no issues overnight. Maintaining her oxygen saturations on room air Objective Data Objective Data Vital Signs: Vital Signs Temp Pulse Resp BP Pulse Ox O2 Del Method O2 Flow Rate 96.4 F L 83 16 108/51 L 93 Room Air 2 09/14/24 15:20 09/14/24 15:20 09/14/24 15:20 09/14/24 15:20 09/14/24 15:20 09/14/24 15:20 09/13/24 10:11 Oxygen Flow Rate (L/min) 2 Oxygen Delivery Method Room Air Weight: 260 lb 12.909 oz Body Mass Index (BMI) 45.4 Intake & Output: Intake and Output for Last 24 Hours 09/13/24 09/14/24 09/15/24 03:59 03:59 03:59 Intake Total 2220 / 2220 240 / 240 150 / 150 Output Total 1850 / 1850 700 / 700 450 / 450 Balance 370 / 370 -460 / -460 -300 / -300 Lab / Micro Data 09/13/24 05:54 09/14/24 06:00 Labs: Laboratory Results - last 24 hr 09/13/24 17:01: POC Glucose 148 H 09/13/24 23:13: POC Glucose 129 H 09/14/24 06:00: Sodium 140, Potassium 4.1, Chloride Direct 108, Carbon Dioxide 21.7 L, Anion Gap 10, BUN 19, Creatinine 1.20, Estim Creat Clear Calc 60.44, EstGFR (MDRD) Non-Af 51 L, BUN/Creatinine Ratio 15.8, Glucose 132 H, Calcium 8.7 09/14/24 06:04: POC Glucose 130 H 09/14/24 11:39: POC Glucose 210 H Micro: Microbiology 09/12/24 12:30 Urine, Catheterized Urine Culture - Final Culture exhibits no growth. 09/12/24 14:25 Blood Culture (Wb) - Anticubital Left Blood Culture - Preliminary No growth in 48 hours. 09/12/24 12:00 Blood Culture (Wb) - Right Hand Blood Culture - Preliminary No growth in 48 hours. 09/12/24 11:22 Mucosa - Nose SARS-CoV-2, Influenza & RSV (PCR) - Final SARS-CoV-2 (COVID 19) Social Homelessness:: Unsheltered Physical Exam Narrative General: Alert, Oriented x3, Cooperative, No apparent distress HEENT: Atraumatic, PERRLA, EOMI, Normocephalic Oral: Moist Mucosa Neck: Supple, No JVD Lungs: Diminished, Normal air movement, No rhonchi, No wheeze, No rales Cardiovascular: Regular rate, Regular Rhythm, Normal S1, Normal S2, No murmurs Abdomen: Soft, Non Tender, Non-Distended, No Hepato-splenomegaly Extremities: No edema, Capillary Refill Less than 3 Seconds Skin: No rashes, No breakdown Musculoskeletal: No Tenderness to Palpation of Joints or Extremities Neurological: No focal neurological deficits, Motor Exam 5/5 strength throughout, Sensory exam intact to light touch and pain Psych/Mental Status: Normal affect, appropriate Assessment & Plan Assessment/Plan (1) Stroke: (2) COVID: PLAN: Plan 1. TIA ? MRI is negative ? Echo is unremarkable ? Continue with Lipitor and Eliquis as well as aspirin ? Appreciate neurology's assistance ? She has no deficits currently ? PT/OT 2. COVID ? Does not appear to be hypoxic at the moment ? Continue with Decadron ? Given her homelessness attempting placement however they are hesitant secondary to her COVID diagnosis 3. Essential HTN/HLD/paroxysmal A-fib ? Continue with Eliquis ? Continue with her home blood pressure medications ? Will monitor make adjustments as necessary ? Can restart Lasix tomorrow as her kidney function is improving 4. GERD ? Stable ? Continue with PPI Homeless: New development. Patient just discharged from the psychiatric facility. Case management to assist. Anticipate the patient may require shelter facility when she is medically ready for discharge. Recent psychiatric hospitalization for roughly 20 days in [facility]. Continue with Seroquel and Ativan DVT: Eliquis Charges/Coding Visit Charges Inpatient E&M: 98914 Subs Hosp L2 09/14/24 1545 Cosigner Signature (if applicable): CC: ~ Signed [facility]02-28-2025 Consult note [facility] Medical Records Department [address] [place] [address] Consultation - Neurology 09/13/24 1413 MR#: [id number] Acct: [id number] Name: PERNELL RODRIGUEZ Rep #:[id number] : 1960 64 From: Long Arthur PCP: Dr. Homer Bradford MD Status:ADM IN Location: [place] [address] Assessment and Plan: Neuro Assessment/Plan 64 y/o woman with h/o Afib on AC, recent admission to psych facility for concernfor blood clot p/w difficult speaking. In ER, noted to be COVID positive. CT Head - concern for left BG stroke. CTA - shows no LVO but shows lymphadenopathy.MRI brain- no acute stroke. LDL-84. A1c-5.4. ULN-SF-45-65%. Tod ay, she reports feeling better with NIHSS-0. 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 I personally attended this patient and spent a total time of 50 minutes evaluating this patient including clinical assessment, review of chart, medical history imaging, and determining appropriate treatment and workup. HPI Consult Data Date of Consult: 09/13/24 HPI Narrative HPI Narrative: 64 y/o woman with h/o Afib on AC, recent admission to psych facility for concernfor blood clot p/w difficult speaking. In ER, noted to be COVID positive. CT Head - concern for left BG stroke. CTA - shows no LVO but shows lymphadenopathy.MRI brain- no acute stroke. LDL-84. A1c-5.4. BUF-TQ-94-65%. Today, she reports feeling better with NIHSS-0. PFSH Medical History (Updated 09/12/24 @ 15:[address] Wilfredo Denton, DO) History of echocardiogram Wears glasses Anxiety Depression Post-menopausal History of renal disease High cholesterol Back pain TIA (transient ischemic attack) Gastric reflux Smoker Shortness of breath on exertion History of pain when walking History of edema Cardiology follow-up encounter History of heart attack Chest pain History of left heart catheterization (LHC) (~12/30/20) CKD (chronic kidney disease) stage 3, GFR 30-59 ml/min Lung nodule COPD (chronic obstructive pulmonary disease) Paroxysmal atrial fibrillation Elevated liver enzymes Acute respiratory failure with hypoxia Stroke IBS (irritable bowel syndrome) Hyperlipidemia Heart disease Migraines Frequent headaches Gastrointestinal problem Diabetes History of back problems Asthma Arthritis Home Medications ?Medication ?Instructions ?Recorded ?Last Taken ?Type hyoscyamine sulfate 0.375 mg 0.375 mg PO BID 06/22/17 09/08/20 History tablet,extended release,12 hr (Oscimin SR) lovastatin 20 mg tablet 20 mg PO QDAY cholesterol 09/11/24 History ipratropium 0.5 mg-albuterol 3 mg 3 ml inhalation Q4HW A.RT PRN 09/07/21 09/08/24 Rx (2.5 mg base)/3 mL nebulization shortness of breath or wheezing #0 soln mL lorazepam 0.5 mg tablet (Ativan) 0.5 mg PO Q12H PRN An xiety 09/28/21 09/11/24 History omega-3 fatty acids-fish oil 360 1 cap PO BID Joints 0 03/04/23 09/11/24 History mg-1,200 mg capsule (Fish Oil) vitamin B complex (B 1 tab PO BID General health 03/04/23 09/11/24 History Complex-Vitamin B12 tablet) albuterol sulfate 90 mcg/actuation 1 puff inhalation Q 6H #8.5 grams 05/13/23 Unknown Rx aerosol inhaler (Ventolin HFA) citalopram 10 mg tablet (Celexa) 10 mg PO DAILY depres lukas 11/18/23 09/11/24 History furosemide 20 mg tablet 20 mg PO BID Diuretic 09/11/24 History omeprazole 40 mg capsule,delayed 40 mg PO DAILY Gerd 0 11/18/23 09/11/24 History release trazodone 100 mg tablet 200 mg PO QHS Sleep 11/18/23 09/11/24 History apixaban 5 mg tablet (Eliquis) 5 mg PO Q12H anticoagul ant 09/12/24 09/12/24 History quetiapine 200 mg tablet,extended 200 mg PO BID Bipola r 09/12/24 09/11/24 History release 24 hr Allergy/AdvReac Type Severity Reaction Status Date / Time Penicillins Allergy Intermediate Hives Verified 09/12/24 10:32 carbamazepine (From Tegretol) AdvReac Intermediate Nausea Verified 09/12/24 10:32 benztropine AdvReac Unknown Verified 09/12/24 10:32 diazepam (From Valium) AdvReac Other Verified 09/12/24 10:32 Sulfa (Sulfonamide AdvReac Nausea Verified 09/12/24 10:32 Antibiotics) thioridazine AdvReac Nausea Verified 09/12/24 10:32 thioridazine HCl (From AdvReac Other Verified 09/12/24 10:32 Mellaril) Family History Grandmother Cancer stomach Father Cancer lung Sister Breast cancer Surgical History Hx of surgical procedure History of carpal tunnel surgery History of elbow surgery H/O shoulder surgery H/O hand surgery H/O dilation and curettage Hx of cholecystectomy History of tonsillectomy Social History household members: family housing: other details: Mobile home Smoking Status: Heavy Smoker (>10/day) alcohol intake: never substance use type: does not use caffeine: Yes what type of physical activity do you participate in: walking seatbelt use: always do you feel safe at home: Yes Vital Signs Vital Signs Vital Signs: 09/12/24 15:00 09/12/24 17:00 09/12/24 17:20 Temperature 99.4 F H 100.1 F H Temperature Source Oral Pulse Rate 101 H 101 H Pulse Strength Respiratory Rate 20 H 18 Respiratory Effort Respiratory Depth Respiratory Pattern Blood Pressure 93/56 L 107/53 L Blood Pressure Mean 68 71 Blood Pressure Source Monitor Blood Pressure Position Semi-Fowlers Blood Pressure Location Right Arm Pulse Ox 97 92 Oxygen Delivery Method Nasal Cannula Nasal Cannula Oxygen Flow Rate (L/min) 2 2 09/12/24 19:48 09/12/24 20:00 09/12/24 20:00 Temperature 96.6 F L Temperature Source Temporal Pulse Rate 93 Pulse Strength Normal (2+) Respiratory Rate 18 Respiratory Effort Respiratory Depth Respiratory Pattern Blood Pressure 112/50 L Blood Pressure Mean 70 Blood Pressure Source Monitor Blood Pressure Position Semi-Fowlers Blood Pressure Location Right Arm Pulse Ox 95 95 Oxygen Delivery Method Room Air Room Air Oxygen Flow Rate (L/min) 09/12/24 20:00 09/12/24 23:55 09/13/24 00:00 Temperature 97.2 F L 97.2 F L Temperature Source Temporal Temporal Pulse Rate 88 88 Pulse Strength Respiratory Rate 16 16 Respiratory Effort Normal Non-Labored Respiratory Depth Normal Respiratory Pattern Normal Blood Pressure 100/45 L 100/45 L Blood Pressure Mean 63 63 Blood Pressure Source Monitor Blood Pressure Position Semi-Fowlers Blood Pressure Location Right Arm Pulse Ox 92 92 Oxygen Delivery Method Room Air Room Air Room Air Oxygen Flow Rate (L/min) 09/13/24 04:00 09/13/24 04:00 09/13/24 07:17 Temperature 97.4 F L Temperature Source Oral Pulse Rate 82 65 Pulse Strength Respiratory Rate 18 16 Respiratory Effort Normal Non-Labored Respiratory Depth Normal Respiratory Pattern Normal Blood Pressure 101/49 L Blood Pressure Mean 66 Blood Pressure Source Monitor Blood Pressure Position Semi-Fowlers Blood Pressure Location Left Arm Pulse Ox 94 Oxygen Delivery Method Nasal Cannula Nasal Cannula Oxygen Flow Rate (L/min) 2 2 09/13/24 07:17 09/13/24 07:17 09/13/24 08:12 Temperature Temperature Source Pulse Rate Pulse Strength Respiratory Rate 16 Respiratory Effort Normal Normal Non-Labored Respiratory Depth Normal Normal Respiratory Pattern Normal Normal Blood Pressure Blood Pressure Mean Blood Pressure Source Blood Pressure Position Blood Pressure Location Pulse Ox 94 94 Oxygen Delivery Method Nasal Cannula Nasal Cannula Nasal Cannula Oxygen Flow Rate (L/min) 2 2 2 09/13/24 08:15 09/13/24 08:24 09/13/24 10:00 Temperature 96.8 F L Temperature Source Oral Pulse Rate 84 Pulse Strength Normal (2+) Respiratory Rate 18 Respiratory Effort Respiratory Depth Respiratory Pattern Blood Pressure 104/46 L Blood Pressure Mean 65 Blood Pressure Source Monitor Blood Pressure Position Semi-Fowlers Blood Pressure Location Left Forearm Pulse Ox 84 94 Oxygen Delivery Method Nasal Cannula Oxygen Flow Rate (L/min) 2 2 09/13/24 10:11 09/13/24 13:25 09/13/24 13:25 Temperature Temperature Source Pulse Rate 65 Pulse Strength Respiratory Rate 16 Respiratory Effort Respiratory Depth Respiratory Pattern Blood Pressure Blood Pressure Mean Blood Pressure Source Blood Pressure Position Blood Pressure Location Pulse Ox 94 93 Oxygen Delivery Method Room Air Oxygen Flow Rate (L/min) 2 Weight Weight: 118.3 kg Body Mass Index (BMI) 45.4 EEG Results Procedure Details EEG Procedure Details: PERNELL RODRIGUEZ is a 64 year old F with a past medical history of , who presents for evaluation of Electroencephalogram on DATE at TIME NIHSS NIHSS Nursing Documentation NIHSS Nursing Documentation: NIHSS: Ischemic Stroke/TIA Start: 09/12/24 16:02 Text: For ICU Patients: NIH sroke scale at Status: Complete presentation and every 2 hours or with change in RN caregiver Freq: [id number] Protocol: Activity Type Activity Date Activity User E-sign Co-sign Detail Recorded Client Recorded Date Recorded By Document 09/12/24 17:30 SHANIKA [id number] 09/12/24 17:32 SHANIKA 09/12/24 17:30 NIH Stroke Scale [NIHSS] A score of 0 is normal or asymptomatic . Total possible score is 42. Inpatient: RN or Physician to activate a stroke alert for onset of new stroke symptoms or with NIHSS increase >/= 3 points. Following change in neurological status, NIHSS will be performed per physician order or more frequently PRN. -1a. Level of Consciousness Alert; keenly responsive -1b. LOC Questions Answers BOTH questions correctly. -1c. LOC Commands Performs both tasks correctly . -2. Best Gaze Normal -3. Visual No visual loss -4. Facial Palsy Normal symmetrical movements -5a. Left Arm No drift; arm holds 90 (or 45 ) degrees for full 10 seconds -5b. Right Arm No drift; arm holds 90 (or 45 ) degrees for full 10 seconds -6a. Left Leg No drift; leg holds 30-degree position for full 5 seconds -6b. Right Leg No drift; leg holds 30-degree position for full 5 seconds -7. Limb Ataxia Absent -8. Sensory Normal; no sensory loss -9. Best Language No aphasia; normal -10. Dysarthria Normal -11. Extinction and Inattention No abnormality -Total 0 Query Text:A score of 0 is normal or asymptomatic. Total possible score is 42 . ED: Notify Physician for NIHSS increase by > / = 3 points. Inpatient: RN or Physician to activate a stroke alert for NIHSS increase of > / = 3 points. Coma Scale [Assess] -Eye Opening Spontaneous -Motor Obeys Commands -Verbal Oriented [Total] -Coma Scale Total 15 NIHSS: Ischemic Stroke/TIA Start: 09/12/24 16:02 Text: For PCU Patients: NIH and Neuro Check every 4 Status: Complete hours, PRN and with change in RN caregiver. Freq: [id number] Protocol: Activity Type Activity Date Activity User E-sign Co-sign Detail Recorded Client Recorded Date Recorded By Document 09/13/24 04:00 DOREEN [id number] 09/13/24 04:05 DOREEN 09/13/24 04:00 NIH Stroke Scale [NIHSS] A score of 0 is normal or asymptomatic . Total possible score is 42. Inpatient: RN or Physician to activate a stroke alert for onset of new stroke symptoms or with NIHSS increase >/= 3 points. Following change in neurological status, NIHSS will be performed per physician order or more frequently PRN. -1a. Level of Consciousness Alert; keenly responsive -1b. LOC Questions Answers BOTH questions correctly. -1c. LOC Commands Performs both tasks correctly . -2. Best Gaze Normal -3. Visual No visual loss -4. Facial Palsy Normal symmetrical movements -5a. Left Arm No drift; arm holds 90 (or 45 ) degrees for full 10 seconds -5b. Right Arm No drift; arm holds 90 (or 45 ) degrees for full 10 seconds -6a. Left Leg No drift; leg holds 30-degree position for full 5 seconds -6b. Right Leg No drift; leg holds 30-degree position for full 5 seconds -7. Limb Ataxia Absent -8. Sensory Normal; no sensory loss -9. Best Language No aphasia; normal -10. Dysarthria Normal -11. Extinction and Inattention No abnormality -Total 0 Query Text:A score of 0 is normal or asymptomatic. Total possible score is 42 . ED: Notify Physician for NIHSS increase by > / = 3 points. Inpatient: RN or Physician to activate a stroke alert for NIHSS increase of > / = 3 points. Coma Scale [Assess] -Eye Opening Spontaneous -Motor Obeys Commands -Verbal Oriented [Total] -Coma Scale Total 15 NIHSS 1a. Level of Consciousness: Alert; keenly responsive 1b. LOC Questions: Answers BOTH questions correctly. 1c. LOC Commands: Performs both tasks correctly. 2. Best Gaze: Normal 3. Visual: No visual loss 4. Facial Palsy: Normal symmetrical movements 5a. Left Arm: No drift; arm holds 90 (or 45) degrees for full 10 seconds 5b. Right Arm: No drift; arm holds 90 (or 45) degrees for full 10 seconds 6a. Left Leg: No drift; leg holds 30-degree position for full 5 seconds 6b. Right Leg: No drift; leg holds 30-degree position for full 5 seconds 7. Limb Ataxia: Absent 8. Sensory: Normal; no sensory loss 9. Best Language: No aphasia; normal 10. Dysarthria: Normal 11. Extinction and Inattention: No abnormality Total: 0 Physical Exam Narrative General: The patient appears nutritionally appropriate, well-groomed, and appears comfortable in noacute distress. Mental Status:? The patient?s mental status was normal including orientation.? Language was intact.? Cranial nerves:? Visual lloyd full, and extra-ocular motion was intact. Symmetricface. Motor: Normal strength in all extremities. Sensation: Intact to touch in all extremities.? Coordination:? Bilateral finger to nose was normal.? There was no dysmetria. Gait:? deferred. Lab / Micro Data 09/13/24 05:54 09/14/24 06:00 Labs: Laboratory Results - last 24 hr 09/12/24 19:55: POC Glucose 141 H 09/13/24 05:54: WBC 7.6, RBC 4.07 L, Hgb 12.9, Hct 39.3, MCV 96.6, MCH 31.7, MCHC 32.8, RDW Std Deviation 47.2 H, RDW Coeff of Robert 13.1, Plt Count 225, MPV 10.6, Immature Gran % (Auto) 0.500, Neut % (Auto) 79.9 H, Lymph % (Auto) 10.0 L, Price % (Auto) 9.5, Eos % (Auto) 0.0, Baso % (Auto) 0.1, Absolute Neuts (auto) 6.1, Absolute Lymphs (auto) 0.76 L, Nucleated RBC % 0, Sodium 140, Potassium 3.9, Chloride Direct 109 H, Carbon Dioxide 21.1 L, Anion Gap 10, BUN 14, Creatinine 1.3 H, Estim Creat Clear Calc 55.79, Est GFR (MDRD) Non-Af 48 L, BUN/Creatinine Ratio 11.3, Glucose 130 H, Hemoglobin A1c 6.0, Calcium 8.4, Triglycerides 71, Cholesterol 94, VLDL Cholesterol 14, HDL Cholesterol 47, Cholesterol/HDL Ratio 2.00, TSH 0.483 09/13/24 06:18: POC Glucose 128 H 09/13/24 11:28: POC Glucose 195 H Micro: Microbiology 09/12/24 11:22 Mucosa - Nose SARS-CoV-2, Influenza & RSV (PCR) - Final SARS-CoV-2 (COVID 19) Imaging Radiology Impression Head MRA 09/12/24 15:01 IMPRESSION: Diminutive caliber of the distal right vertebral artery may be congenital or developmental. Otherwise, negative MRA of the brain. Persistent origin of the right posterior cerebral artery. Reading [facility] Neck MRA 09/12/24 15:01 IMPRESSION: Suboptimal examination due to artifact. There appears to be less than 50% stenosis of the carotid bulbs and proximal internal carotid arteries, although evaluation of the left carotid bulb and proximal left internal carotid artery is less than ideal. Follow-up contrast-enhanced CTA evaluation may be considered for more accurate evaluation of the carotid bulbs and proximal internal carotid arteries. Both vertebral arteries appear to be patent. Reading Location[facility] Brain MRI 09/12/24 16:02 IMPRESSION: No acute intracranial abnormality. No evidence of acute infarction to correspond to the area of decreased attenuation in the left basal ganglia on same day noncontrast head CT. This may represent a prominent perivascular space. Patchy white matter hyperintensities in both cerebral hemispheres as above, which may be on the basis of chronic small-vessel ischemic disease. Mild paranasal sinus disease, as above. Partially empty sella. Reading Location: [facility] Active Medications Active Medications Active Medications: Current Medications Generic Name Dose Route Start Last Admin Trade Name Freq PRN Reason Stop Dose Admin Acetaminophen 650 mg 09/12/24 16:02 Acetaminophen 325 Mg Tablet PO Q6H PRN PRN Pain 1-10 Or Fever >100.7 Albuterol Sulfate 2.5 mg 09/12/24 16:30 09/13/24 13:24 Albuterol 2.5 Mg/3 Ml Vial.Neb. INHALATION 2.5 mg Q6H.RT MARIA DEL CARMEN Administration Albuterol/Ipratropium 3 ml 09/12/24 16:02 Ipratropium/Albuterol Sulfate 3 Ml Ampul.Neb INHALATION Q4HWA.RT PRN shortness of breath or wheezing Apixaban 5 mg 09/12/24 22:00 09/13/24 08:27 Apixaban 5 Mg Tablet PO 5 mg Q12 MARIA DEL CARMEN Administration Aspirin 81 mg 09/13/24 08:00 09/13/24 08:26 Aspirin 81 Mg Tab.Chew PO 81 mg BREAKFAST MARIA DEL CARMEN Administration Atorvastatin Calcium 5 mg 09/12/24 22:00 09/12/24 19:58 Atorvastatin Calcium 10 Mg Tablet PO 5 mg QHS MARIA DEL CARMEN Administration Citalopram Hydrobromide 10 mg 09/13/24 10:00 09/13/24 08:27 Citalopram 10 Mg Tablet PO 10 mg DAILY MARIA DEL CARMEN Administration Dexamethasone 6 mg 09/13/24 08:00 09/13/24 08:26 Dexamethasone 4 Mg Tablet PO 09/22/24 08:01 6 mg DAILY@0800 MARIA DEL CARMEN Administration Glucagon 1 mg 09/12/24 16:02 Glucagon 1 Mg/Ml Syringe IM X1 PRN Hypoglycemia Protocol Hydralazine HCl 5 mg 09/12/24 16:02 Hydralazine 20 Mg/Ml Vial IV 09/13/24 16:02 Q30M PRN maintain BP parameters with HR <60 Dextrose 250 mls @ 0 mls/hr 09/12/24 16:02 Dextrose 10%-Water IV .Q0M PRN HYPOGLYCEMIA Protocol As Directed Sodium Chloride 100 mls @ 15 mls/hr 09/12/24 16:07 IV .Q6H40M PRN SALINE FLUSH Insulin Human Lispro 0 unit 09/12/24 16:02 09/13/24 11:33 Insulin Lispro 100 Unit/Ml Insuln.Pen SC 2 u ACHS MARIA DEL CARMEN Administration Protocol Labetalol HCl 10 - 20 mg 09/12/24 16:02 Labetalol 20mg/4ml Syringe IV 09/13/24 16:02 Q10M PRN PRN maintain BP parameters with HR >/=60 Lorazepam 0.5 mg 09/12/24 16:02 09/12/24 20:05 Lorazepam 0.5 Mg Tablet PO 0.5 mg Q12H PRN Administration Anxiety Nystatin 1 applic 09/13/24 10:00 09/13/24 11:25 Nystatin Powder 15gm Bottle TOPICAL 1 applic BID MARIA DEL CARMEN Administration Protocol Ondansetron HCl 4 mg 09/12/24 16:02 Ondansetron 4 Mg/2 Ml Vial IV Q8H PRN PRN NAUSEA/VOMITING Pantoprazole Sodium 40 mg 09/13/24 10:00 09/13/24 08:27 Pantoprazole Sodium 40 Mg Tablet PO 40 mg DAILY MARIA DEL CARMEN Administration Quetiapine Fumarate 100 mg 09/12/24 18:00 09/13/24 11:25 Quetiapine 100 Mg Tablet PO 100 mg Q6 MARIA DEL CARMEN Administration Sodium Chloride 10 - 40 ml 09/12/24 16:07 09/12/24 19:59 0.9% Saline Lock 10 Ml Syringe IV 10 ml UD PRN Administration SALINE FLUSH Trazodone HCl 200 mg 09/12/24 22:00 09/12/24 19:58 Trazodone 100 Mg Tablet PO 200 mg QHS MARIA DEL CARMEN Administration 09/14/24 1522 Cosigner Signature (if applicable): CC: Dr. Homer Bradford MD~ Signed [facility]02-27-2025 Progress note Author Guevara Collins [facility] Note Date/Time September 13, 2024 5:23pm [facility] Medical Records Department [address] [place] [id number] Progress Note - Hospitalist 09/13/24 1718 MR#: [id number] Acct: [id number] Name: PERNELL RODRIGUEZ CHEKO Rep #:[id number] : 1960 64 From: Guevara dyer MD PCP: Dr. Homer Bradford MD Status:ADM IN Location: [place] [address] Subjective Subjective Doing well, no issues overnight. NIH is 0 Objective Data Objective Data Vital Signs: Vital Signs Temp Pulse Resp BP Pulse Ox O2 Del Method O2 Flow Rate 97.2 F L 71 16 104/44 L 94 Room Air 2 09/13/24 17:04 09/13/24 17:04 09/13/24 17:04 09/13/24 17:04 09/13/24 17:04 09/13/24 17:04 09/13/24 10:11 Oxygen Flow Rate (L/min) 2 Oxygen Delivery Method Room Air Weight: 260 lb 12.909 oz Body Mass Index (BMI) 45.4 Intake & Output: Intake and Output for Last 24 Hours 09/12/24 09/13/24 09/14/24 03:59 03:59 03:59 Intake Total 2220 / 2220 Output Total 1850 / 1850 700 / 700 Balance 370 / 370 -700 / -700 Lab / Micro Data 09/13/24 05:54 09/13/24 05:54 Labs: Laboratory Results - last 24 hr 09/12/24 19:55: POC Glucose 141 H 09/13/24 05:54: WBC 7.6, RBC 4.07 L, Hgb 12.9, Hct 39.3, MCV 96.6, MCH 31.7, MCHC 32.8, RDW Std Deviation 47.2 H, RDW Coeff of Robert 13.1, Plt Count 225, MPV 10.6, Immature Gran % (Auto) 0.500, Neut % (Auto) 79.9 H, Lymph % (Auto) 10.0 L,Price % (Auto) 9.5, Eos % (Auto) 0.0, Baso % (Auto) 0.1, Absolute Neuts (auto) 6.1, Absolute Lymphs (auto) 0.76 L, Nucleated RBC % 0, Sodium 140, Potassium 3.9, Chloride Direct 109 H, Carbon Dioxide 21.1 L, Anion Gap 10, BUN 14, Creatinine 1.3 H, Estim Creat Clear Calc 55.79, Est GFR (MDRD) Non-Af 48 L, BUN/Creatinine Ratio 11.3, Glucose 130 H, Hemoglobin A1c 6.0, Calcium 8.4, Triglycerides 71, Cholesterol 94, VLDL Cholesterol 14, HDL Cholesterol 47, Cholesterol/HDL Ratio 2.00, TSH 0.483 09/13/24 06:18: POC Glucose 128 H 09/13/24 11:28: POC Glucose 195 H Micro: Microbiology 09/12/24 11:22 Mucosa - Nose SARS-CoV-2, Influenza & RSV (PCR) - Final SARS-CoV-2 (COVID 19) Radiography Diagnostic Testing: Radiology Impression Head MRA 09/12/24 15:01 IMPRESSION: Diminutive caliber of the distal right vertebral artery may be congenital or developmental. Otherwise, negative MRA of the brain. Persistent origin of the right posterior cerebral artery. Reading Location: [facility] Neck MRA 09/12/24 15:01 IMPRESSION: Suboptimal examination due to artifact. There appears to be less than 50% stenosis of the carotid bulbs and proximal internal carotid arteries, although evaluation of the left carotid bulb and proximal leftinternal carotid artery is less than ideal. Follow-up contrast-enhanced CTA evaluation may be considered for more accurate evaluation of the carotid bulbs and proximal internal carotid arteries. Both vertebral arteries appear to be patent. Reading Location: [facility] Brain MRI 09/12/24 16:02 IMPRESSION: No acute intracranial abnormality. No evidence of acute infarction to correspond to the area of decreased attenuation in the left basal ganglia on same day noncontrast head CT. This may represent a prominent perivascular space. Patchy white matter hyperintensities in both cerebral hemispheres as above, which may be on the basis of chronic small-vessel ischemic disease. Mild paranasal sinus disease, as above. Partially empty sella. Reading Location: [facility] Echocardiogram 09/12/24 16:02 Interpretation Summary The estimated ejection fraction is 65 %. Trivial mitral valve insufficiency. Ordering Physician: Wilfredo Denton Referring Physician: HOMER BRADFORD Performed By: Munira Saldana RCS Physical Exam Narrative General: Alert, Oriented x3, Cooperative, No apparent distress HEENT: Atraumatic, PERRLA, EOMI, Normocephalic Oral: Moist Mucosa Neck: Supple, No JVD Lungs: Diminished, Normal air movement, No rhonchi, No wheeze, No rales Cardiovascular: Regular rate, Regular Rhythm, Normal S1, Normal S2, No murmurs Abdomen: Soft, Non Tender, Non-Distended, No Hepato-splenomegaly Extremities: No edema, Capillary Refill Less than 3 Seconds Skin: No rashes, No breakdown Musculoskeletal: No Tenderness to Palpation of Joints or Extremities Neurological: No focal neurological deficits, Motor Exam 5/5 strength throughout, Sensory exam intact to light touch and pain Psych/Mental Status: Flat Assessment & Plan Assessment/Plan (1) Stroke: (2) COVID: PLAN: Plan 1. TIA ? MRI is negative ? Echo is unremarkable ? Continue with Lipitor and Eliquis as well as aspirin ? Appreciate neurology's assistance ? She has no deficits currently 2. COVID ? Does not appear to be hypoxic at the moment ? She was 89% on room air with ambulation ? Continue with Decadron ? Given her homelessness attempting placement however they are hesitant secondary to her COVID diagnosis 3. Essential HTN/HLD/paroxysmal A-fib ? Continue with Eliquis ? Continue with her home blood pressure medications ? Will monitor make adjustments as necessary ? Can restart Lasix tomorrow as her kidney function is improving 4. GERD ? Stable ? Continue with PPI Homeless: New development. Patient just discharged from the psychiatric facility. Case management to assist. Anticipate the patient may require shelter facility when she is medically ready for discharge. Recent psychiatric hospitalization for roughly 20 days in [facility]. Continue with Seroquel and Ativan DVT: Eliquis Charges/Coding Visit Charges Inpatient E&M: 26137 Subs Hosp L2 09/13/24 1723 <Electronically signed by Guevara Collins MD> Cosigner Signature (if applicable): CC: ~ Signed [facility] Work Phone: [phone] Progress note [facility] Medical Records Department [address] [place] [id number] Progress Note - Hospitalist 09/13/24 1718 MR#: [id number] Acct: [id number] Name: PERNELL RODRIGUEZ Rep #:[id number] : 1960 64 From: Guevara dyer MD PCP: Dr. Homer Bradford MD Status:ADM IN Location: [place] [address]- Subjective Subjective Doing well, no issues overnight. NIH is 0 Objective Data Objective Data Vital Signs: Vital Signs Temp Pulse Resp BP Pulse Ox O2 Del Method O2 Flow Rate 97.2 F L 71 16 104/44 L 94 Room Air 2 09/13/24 17:04 09/13/24 17:04 09/13/24 17:04 09/13/24 17:04 09/13/24 17:04 09/13/24 17:04 09/13/24 10:11 Oxygen Flow Rate (L/min) 2 Oxygen Delivery Method Room Air Weight: 260 lb 12.909 oz Body Mass Index (BMI) 45.4 Intake & Output: Intake and Output for Last 24 Hours 09/12/24 09/13/24 09/14/24 03:59 03:59 03:59 Intake Total 2220 / 2220 Output Total 1850 / 1850 700 / 700 Balance 370 / 370 -700 / -700 Lab / Micro Data 09/13/24 05:54 09/13/24 05:54 Labs: Laboratory Results - last 24 hr 09/12/24 19:55: POC Glucose 141 H 09/13/24 05:54: WBC 7.6, RBC 4.07 L, Hgb 12.9, Hct 39.3, MCV 96.6, MCH 31.7, MCHC 32.8, RDW Std Deviation 47.2 H, RDW Coeff of Robert 13.1, Plt Count 225, MPV 10.6, Immature Gran % (Auto) 0.500, Neut % (Auto) 79.9 H, Lymph % (Auto) 10.0 L,Price % (Auto) 9.5, Eos % (Auto) 0.0, Baso % (Auto) 0.1, Absolute Neuts (auto) 6.1, Absolute Lymphs (auto) 0.76 L, Nucleated RBC % 0, Sodium 140, Potassium 3.9, Chloride Direct 109 H, Carbon Dioxide 21.1 L, Anion Gap 10, BUN 14, Creatinine 1.3 H, Estim Creat ClearCalc 55.79, Est GFR (MDRD) Non-Af 48 L, BUN/Creatinine Ratio 11.3, Glucose 130 H, Hemoglobin A1c 6.0, Calcium 8.4, Triglycerides 71, Cholesterol 94, VLDL Cholesterol 14, HDL Cholesterol 47, Cholesterol/HDL Ratio 2.00, TSH 0.483 09/13/24 06:18: POC Glucose 128 H 09/13/24 11:28: POC Glucose 195 H Micro: Microbiology 09/12/24 11:22 Mucosa - Nose SARS-CoV-2, Influenza & RSV (PCR) - Final SARS-CoV-2 (COVID 19) Radiography Diagnostic Testing: Radiology Impression Head MRA 09/12/24 15:01 IMPRESSION: Diminutive caliber of the distal right vertebral artery may be congenital or developmental. Otherwise, negative MRA of the brain. Persistent origin of the right posterior cerebral artery. Reading Location: [facility] Neck MRA 09/12/24 15:01 IMPRESSION: Suboptimal examination due to artifact. There appears to be less than 50% stenosis of the carotid bulbs and proximal internal carotid arteries, although evaluation of the left carotid bulb and proximal leftinternal carotid artery is less than ideal. Follow-up contrast-enhanced CTA evaluation may be considered for more accurate evaluation of the carotid bulbs and proximal internal carotid arteries. Both vertebral arteries appear to be patent. Reading Location: [facility] Brain MRI 09/12/24 16:02 IMPRESSION: No acute intracranial abnormality. No evidence of acute infarction to correspond to the area of decreased attenuation in the left basal ganglia on same day noncontrast head CT. This may represent a prominent perivascular space. Patchy white matter hyperintensities in both cerebral hemispheres as above, which may be on the basis of chronic small-vessel ischemic disease. Mild paranasal sinus disease, as above. Partially empty sella. Reading Location: [facility] Echocardiogram 09/12/24 16:02 Interpretation Summary The estimated ejection fraction is 65 %. Trivial mitral valve insufficiency. Ordering Physician: Wilfredo Denton Referring Physician: HOMER BRADFORD Performed By: Munira Saldana RCS Physical Exam Narrative General: Alert, Oriented x3, Cooperative, No apparent distress HEENT: Atraumatic, PERRLA, EOMI, Normocephalic Oral: Moist Mucosa Neck: Supple, No JVD Lungs: Diminished, Normal air movement, No rhonchi, No wheeze, No rales Cardiovascular: Regular rate, Regular Rhythm, Normal S1, Normal S2, No murmurs Abdomen: Soft, Non Tender, Non-Distended, No Hepato-splenomegaly Extremities: No edema, Capillary Refill Less than 3 Seconds Skin: No rashes, No breakdown Musculoskeletal: No Tenderness to Palpation of Joints or Extremities Neurological: No focal neurological deficits, Motor Exam 5/5 strength throughout, Sensory exam intact to light touch and pain Psych/Mental Status: Flat Assessment & Plan Assessment/Plan (1) Stroke: (2) COVID: PLAN: Plan 1. TIA ? MRI is negative ? Echo is unremarkable ? Continue with Lipitor and Eliquis as well as aspirin ? Appreciate neurology's assistance ? She has no deficits currently 2. COVID ? Does not appear to be hypoxic at the moment ? She was 89% on room air with ambulation ? Continue with Decadron ? Given her homelessness attempting placement however they are hesitant secondary to her COVID diagnosis 3. Essential HTN/HLD/paroxysmal A-fib ? Continue with Eliquis ? Continue with her home blood pressure medications ? Will monitor make adjustments as necessary ? Can restart Lasix tomorrow as her kidney function is improving 4. GERD ? Stable ? Continue with PPI Homeless: New development. Patient just discharged from the psychiatric facility. Case management to assist. Anticipate the patient may require shelter facility when she is medically ready for discharge. Recent psychiatric hospitalization for roughly 20 days in [facility]. Continue with Seroquel and Ativan DVT: Eliquis Charges/Coding Visit Charges Inpatient E&M: 27696 Subs Hosp L2 09/13/24 1723 Cosigner Signature (if applicable): CC: ~ Signed [facility]02-27-2025 NoteHNO ID: [id number] Author: ASPEN BELL LPN Service: ? Author Type: LICENSED NURSE Type: Progress Notes Filed: 09/13/2024 07:33 Note Text: Scan on 09/12/2024 3:24 PM by Provider, External, PA-C: Consultation - Emergency Medicine Scan on 09/12/2024 3:30 PM by Provider, [facility] History of Present illness Narrative* Aspen Bell LPN - 09/13/2024 7:32 AM EST Scan on 09/12/2024 3:24 PM by ProviderGita PA-C: Consultation - Emergency Medicine Scan on 09/12/2024 3:30 PM by ProviderGita PA-C [facility] History and physical note Author Wilfredo Denton [facility] Note Date/Time September 12, 2024 3:07pm [facility] Medical Records Department [address] [place] [address] H&P Exam - Hospitalist 09/12/24 1459 MR#: [id number] Acct: [id number] Name: PERNELL RODRIGUEZ Rep #:[id number] : 1960 64 From: Wilfredo Dentno DO PCP: Dr. Homer Bradford MD Status:REG ER Location: ED HPI - General General Date of Service: 09/12/24 Chief Complaint: difficulty speaking. HPI Narrative PERNELL RODRIGUEZ, is a 64 F who presents with difficulty speaking. Patient was recently admitted in a psychiatric facility in [facility] from the beginning of August to yesterday. The circumstances of that hospitalization are not known to the patient nor the family friend who is at bedside. He statesthat the patient was admitted there for concern for a blood clot but that likelydid michael and switch admitted to a psychiatric facility for unclear reasons. While she was there her medication was discontinued and then she was sent home. Patient has been weak and then today when going to breakfast she had difficulty speaking which was concerning and brought her to the emergency room. In the emergency room, patient was noted to have COVID-19 and she had a head CT That showed a left basal ganglier area diminished attenuation concerning for recent area of ischemic infarction. Also showing bilateral maxillary sinus inflammation. Patient is a rather poor historian so much of the history is obtained to the emergency room physician as well as the patient's friend at bedside. Patient is confabulates at bedside and goes off on tangents that are not germane to the questions. [facility] Medical History (Updated 09/12/24 @ 15:[address] Wilfredo Denton, DO) History of echocardiogram Wears glasses Anxiety Depression Post-menopausal History of renal disease High cholesterol Back pain TIA (transient ischemic attack) Gastric reflux Smoker Shortness of breath on exertion History of pain when walking History of edema Cardiology follow-up encounter History of heart attack Chest pain History of left heart catheterization (LHC) (~12/30/20) CKD (chronic kidney disease) stage 3, GFR 30-59 ml/min Lung nodule COPD (chronic obstructive pulmonary disease) Paroxysmal atrial fibrillation Elevated liver enzymes Acute respiratory failure with hypoxia Stroke IBS (irritable bowel syndrome) Hyperlipidemia Heart disease Migraines Frequent headaches Gastrointestinal problem Diabetes History of back problems Asthma Arthritis Home Medications ?Medication ?Instructions ?Recorded ?Last Taken ?Type hyoscyamine sulfate 0.375 mg 0.375 mg PO BID 06/22/17 09/08/20 History tablet,extended release,12 hr (Oscimin SR) lovastatin 20 mg tablet 20 mg PO QDAY 06/22/1709/08 History ipratropium 0.5 mg-albuterol 3 mg 3 ml inhalation Q4HW A.RT PRN 09/07/21 Unknown Rx (2.5 mg base)/3 mL nebulization shortness of breath or wheezing #0 soln mL lorazepam 0.5 mg tablet (Ativan) 0.5 mg PO Q12H PRN An xiety 09/28/21 Unknown History omega-3 fatty acids-fish oil 360 1 cap PO BID 03/04/23 Unknown History mg-1,200 mg capsule (Fish Oil) vitamin B complex (B 1 tab PO BID 03/04/23 Unknow n History Complex-Vitamin B12 tablet) albuterol sulfate 90 mcg/actuation 1 puff inhalation Q 6H #8.5 grams 05/13/23 Unknown Rx aerosol inhaler (Ventolin HFA) citalopram 10 mg tablet (Celexa) 10 mg PO DAILY Unknown History furosemide 20 mg tablet 20 mg PO BID 11/18/23 Unknow n History omeprazole 40 mg capsule,delayed 40 mg PO DAILY Unknown History release trazodone 100 mg tablet 200 mg PO QHS 11/18/23 Unkno wn History apixaban 5 mg tablet (Eliquis) 5 mg PO Q12H 09/12/24 U nknown History quetiapine 200 mg tablet,extended 200 mg PO BID Unknown History release 24 hr Allergy/AdvReac Type Severity Reaction Status Date / Time Penicillins Allergy Intermediate Hives Verified 09/12/24 10:32 carbamazepine (From Tegretol) AdvReac Intermediate Nausea Verified 09/12/24 10:32 benztropine AdvReac Unknown Verified 09/12/24 10:32 diazepam (From Valium) AdvReac Other Verified 09/12/24 10:32 Sulfa (Sulfonamide AdvReac Nausea Verified 09/12/24 10:32 Antibiotics) thioridazine AdvReac Nausea Verified 09/12/24 10:32 thioridazine HCl (From AdvReac Other Verified 09/12/24 10:32 Mellaril) Family History Grandmother Cancer stomach Father Cancer lung Sister Breast cancer Surgical History Hx of surgical procedure History of carpal tunnel surgery History of elbow surgery H/O shoulder surgery H/O hand surgery H/O dilation and curettage Hx of cholecystectomy History of tonsillectomy Social History household members: family housing: other details: Mobile home Smoking Status: Heavy Smoker (>10/day) alcohol intake: never substance use type: does not use caffeine: Yes what type of physical activity do you participate in: walking seatbelt use: always do you feel safe at home: Yes ROS ROS Narrative Feeling chilled, cough, shortness of breath. All review of systems were negative except as mentioned above in the history of present illness and the other review of systems. Vital Signs Vital Signs Vital Signs: 09/12/24 10:25 09/12/24 11:04 09/12/24 11:35 Temperature 36.7 C Temperature Source Temporal Pulse Rate 105 H 101 H Respiratory Rate 19 H 15 Blood Pressure 100/65 113/66 Blood Pressure Mean 76 81 Pulse Ox 92 90 Oxygen Delivery Method Room Air Room Air Room Air 09/12/24 13:00 Temperature Temperature Source Pulse Rate 102 H Respiratory Rate 20 H Blood Pressure 136/83 H Blood Pressure Mean 98 Pulse Ox 93 Oxygen Delivery Method Weight Weight: 124 kg Body Mass Index (BMI) 47.6 Physical Exam Const alert and no apparent distress HEENT normocephalic, head/scalp atraumatic and hearing grossly normal bilaterally Mouth: moist mucous membranes abnormal parched Eyes PERRL and EOMs intact bilaterally Neck no lymphadenopathy Neck Narrative: No thyromegaly Resp normal respiratory effort, no retractions, no use of accessory muscles and clearto auscultation bilaterally Cardio regular rate, regular rhythm, S1 normal heart sound and S2 normal heart sound GI normal to inspection, nondistended, normoactive bowel sounds, soft to palpation,non-tender, non-distended and hepatosplenomegaly Extremity normal to inspection and full ROM Skin Skin Narrative: No rashes or lesions Neuro oriented x3, CN's II-XII intact bilaterally, moves all extremities and no focal motor deficits Sensorium / Orientation: awake, alert, oriented to person, oriented to place andoriented to time Speech: speech normal Motor Exam: strength 5/5 throughout Psych Mood & Affect: anxious Results Lab / Micro Data Attestation: I reviewed the patient's lab results. 09/12/24 11:22 09/12/24 11:22 Labs: Laboratory Results - last 24 hr 09/12/24 11:22: WBC 9.0, RBC 4.46, Hgb 14.0, Hct 42.9, MCV 96.2, MCH 31.4, MCHC 32.6, RDW Std Deviation 47.2 H, RDW Coeff of Robert 13.2, Plt Count 231, MPV 10.4, Immature Gran % (Auto) 0.300, Neut % (Auto) 85.1 H, Lymph % (Auto) 5.9 L, Price %(Auto) 8.4, Eos % (Auto) 0.1, Baso % (Auto) 0.2, Absolute Neuts (auto) 7.7, Absolute Lymphs (auto) 0.53 L, Nucleated RBC % 0, PT 16.1 H, INR 1.3, APTT 30.9, Sodium 139, Potassium 3.6, Chloride Direct 103, Carbon Dioxide 24.2, Anion Gap 12, BUN 14, Creatinine 1.4 H, Estim Creat Clear Calc 53.30, Est GFR (MDRD) Non-Af 44 L, BUN/Creatinine Ratio 10.2, Glucose 117 H, Lactic Acid 1.6, Calcium 9.0,Total Bilirubin 0.69, AST 28, ALT 17, Alkaline Phosphatase 78, Troponin T High Sens 23 H, NT pro BNP II 130, Total Protein 6.5, Albumin 3.9, Globulin 2.6, Albumin/Globulin Ratio 1.5 09/12/24 12:30: Urine Color Yellow, Urine Clarity Clear, Urine pH 6.0, Ur Specific Boutte 1.010, Urine Protein Negative, Urine Glucose (UA) Normal, UrineKetones Negative, Urine Occult Blood 50 H, Urine Nitrite Negative, Urine Bilirubin Negative, Urine Urobilinogen Normal, Ur Leukocyte Esterase Negative, Urine RBC 0-5 SEEN, Urine WBC 0 SEEN, Ur Squamous Epith Cells 0 SEEN, Urine Bacteria 0 SEEN, Urine Mucus 0 SEEN 09/12/24 12:58: Delta Troponin T 4, Troponin T Hi Sens 2 Hr 19 H 09/12/24 13:30: Troponin T Hi Sens 4Hr 20 H Micro: Microbiology 09/12/24 11:22 Mucosa - Nose SARS-CoV-2, Influenza & RSV (PCR) - Final SARS-CoV-2 (COVID 19) Imaging Radiology Impression Chest X-Ray 09/12/24 11:01 IMPRESSION: No active cardiopulmonary disease. Reading Location: [facility] 09/12/24 11:40 IMPRESSION: 1. Left basal ganglia area of diminished attenuation concerning for recent areaof ischemic infarction. 2. Bilateral maxillary sinus inflammation. Reading Location: [facility] Assessment & Plan Assessment/Plan (1) Stroke: PLAN: Patient has a history of stroke but no prior imaging in our system. CAT scan showed recent basal ganglier infarct. Will start aspirin. Check an MRI of the brain, MRA of the head and neck. NIH is currently 0 and not a candidate for TNK. Additionally check an echo, physical, occupational and speech therapy evaluation. (2) COVID: PLAN: Unclear time of onset as patient is poor historian so we will take today is day 0. Patient received dexamethasone emergency room and will continue for 9more days. Patient appears dry and her creatinine is elevated though seems lower than her baseline. Will hold off on remdesivir at this time. PLAN: Plan Homeless: New development. Patient just discharged from the psychiatric facility. Case management to assist. Anticipate the patient may require shelter facility when she is medically ready for discharge. Recent psychiatric hospitalization for roughly 20 days in [facility]. Will request records if were able to get those to see what actually was going on. Patient has bipolar disorder. Chronic conditions * Obesity class III: Complicates care and recovery. * Diabetes mellitus type 2: Sign scale insulin. Check an A1c. * Paroxysmal atrial fibrillation: Continue with anticoagulation with apixaban VTE prophylaxis: Not indicated as patient is on apixaban CODE STATUS: Addressed with the patient. Patient should be full code. Disposition: To be determined. When patient is medically ready anticipate patient would likely require shelter facility. Charges/Coding Visit Charges Inpatient E&M: 91196 Init Hosp L3 09/12/24 1507 <Electronically signed by Wilfredo Denton DO> Cosigner Signature (if applicable): CC: Dr. Wilfredo Denton DO; Dr. Homer Bradford MD~ Signed [facility] Work Phone: [phone]) 911-610402-26-2025 Discharge summary Author Randy Cabrales [facility] Note Date/Time September 12, 2024 3:03pm [facility] Medical Records Department [address] [place] [address] Emergency Department Summary 09/12/24 MR#: [id number] Acct: [id number] Name: PERNELL RODRIGUEZ CHEKO Rep #:[id number] : 1960 64 From: Randy Cabrales MD PCP: Dr. Homer Bradford MD Status:REG ER Location: ED HPI History of Present Illness Chief Complaint: Chest Pain Narrative Narrative: 64-year-old female past medical history of psychiatric disorder/tar dive dyskinesia presents via EMS with multiple somatic complaints. She states that she was just released from a mental hospital in [place] yesterday. She lives here. She states over the last 3 weeks she has had intermittent fever. Additionally she states that she has had chest pain as well as left shoulder pain that is chronic for her. States her heart hurts and she has history of kidney disease. Her friend who is with her states that she came back to the area and all her primary care providers are here. She once again presents with multiple complaints. [facility] Medical History History of echocardiogram Wears glasses Anxiety Depression Post-menopausal History of renal disease High cholesterol Back pain TIA (transient ischemic attack) Gastric reflux Smoker Shortness of breath on exertion History of pain when walking History of edema Cardiology follow-up encounter History of heart attack Chest pain History of left heart catheterization (LHC) (~12/30/20) CKD (chronic kidney disease) stage 3, GFR 30-59 ml/min Lung nodule COPD (chronic obstructive pulmonary disease) Paroxysmal atrial fibrillation Elevated liver enzymes Acute respiratory failure with hypoxia Stroke IBS (irritable bowel syndrome) Hyperlipidemia Heart disease Migraines Frequent headaches Gastrointestinal problem Diabetes History of back problems Asthma Arthritis Home Medications ?Medication ?Instructions ?Recorded ?Last Taken ?Type hyoscyamine sulfate 0.375 mg 0.375 mg PO BID 06/22/17 09/08/20 History tablet,extended release,12 hr (Oscimin SR) lovastatin 20 mg tablet 20 mg PO QDAY 06/22/1709/08 History ipratropium 0.5 mg-albuterol 3 mg 3 ml inhalation Q4HW A.RT PRN 09/07/21 Unknown Rx (2.5 mg base)/3 mL nebulization shortness of breath or wheezing #0 soln mL lorazepam 0.5 mg tablet (Ativan) 0.5 mg PO Q12H PRN An xiety 09/28/21 Unknown History omega-3 fatty acids-fish oil 360 1 cap PO BID 03/04/23 Unknown History mg-1,200 mg capsule (Fish Oil) vitamin B complex (B 1 tab PO BID 03/04/23 Unknow n History Complex-Vitamin B12 tablet) albuterol sulfate 90 mcg/actuation 1 puff inhalation Q 6H #8.5 grams 05/13/23 Unknown Rx aerosol inhaler (Ventolin HFA) citalopram 10 mg tablet (Celexa) 10 mg PO DAILY Unknown History furosemide 20 mg tablet 20 mg PO BID 11/18/23 Unknow n History omeprazole 40 mg capsule,delayed 40 mg PO DAILY Unknown History release trazodone 100 mg tablet 200 mg PO QHS 11/18/23 Unkno wn History apixaban 5 mg tablet (Eliquis) 5 mg PO Q12H 09/12/24 U nknown History quetiapine 200 mg tablet,extended 200 mg PO BID Unknown History release 24 hr Allergy/AdvReac Type Severity Reaction Status Date / Time Penicillins Allergy Intermediate Hives Verified 09/12/24 10:32 carbamazepine (From Tegretol) AdvReac Intermediate Nausea Verified 09/12/24 10:32 benztropine AdvReac Unknown Verified 09/12/24 10:32 diazepam (From Valium) AdvReac Other Verified 09/12/24 10:32 Sulfa (Sulfonamide AdvReac Nausea Verified 09/12/24 10:32 Antibiotics) thioridazine AdvReac Nausea Verified 09/12/24 10:32 thioridazine HCl (From AdvReac Other Verified 09/12/24 10:32 Mellaril) Family History Grandmother Cancer stomach Father Cancer lung Sister Breast cancer Surgical History Hx of surgical procedure History of carpal tunnel surgery History of elbow surgery H/O shoulder surgery H/O hand surgery H/O dilation and curettage Hx of cholecystectomy History of tonsillectomy Social History household members: family housing: other details: Mobile home Smoking Status: Heavy Smoker (>10/day) alcohol intake: never substance use type: does not use caffeine: Yes what type of physical activity do you participate in: walking seatbelt use: always do you feel safe at home: Yes ROS ROS ED ROS Narrative Constitutional: Positive fever, no chills. HEENT: No sore throat. No neck pain. No loss of vision. No rhinorrhea. Cardiovascular: 3 weeks chest pain. No palpitations. Worsening pedal edema. Respiratory: No cough, no shortness of breath. Abdominal: No abdominal pain. No nausea. No vomiting. Genitourinary: No dysuria. No hematuria. Musculoskeletal: No myalgias. No arthralgias. Neurologic: No headaches. No dizziness. No lightheadedness. Skin: No rash. No change in color. Psychiatric: No depression. No anxiety. EXAM Physical Exam Narrative Exam Narrative: Afebrile. Vital signs noted. Slightly drowsy on examination. Cardiovascular examination reveals mild tachycardia. Lungs clear to auscultation bilaterally. Abdomen soft nontender without guarding or rebound. Trace pedal edema bilateral, equal and symmetric. Const Vital Signs: 09/12/24 10:25 09/12/24 11:04 09/12/24 11:35 Temperature 98.1 F Temperature Source Temporal Pulse Rate 105 H 101 H Respiratory Rate 19 H 15 Blood Pressure 100/65 113/66 Blood Pressure Mean 76 81 Pulse Ox 92 90 Oxygen Delivery Method Room Air Room Air Room Air 09/12/24 13:00 09/12/24 15:00 Temperature 99.4 F H Temperature Source Pulse Rate 102 H 101 H Respiratory Rate 20 H 20 H Blood Pressure 136/83 H 93/56 L Blood Pressure Mean 98 68 Pulse Ox 93 97 Oxygen Delivery Method MDM MDM MDM Narrative Medical decision making narrative: Differential diagnosis includes but not limited to COPD exacerbation versus exacerbation of her tardive dyskinesia versus ACS versus pneumonia versus pneumothorax. Comprehensive workup was pursued. EKG obtained and interpreted by myself independently as normal sinus rhythm at 93 bpm without ectopy or acuteST changes. No STEMI. I reviewed her laboratory work and she has a white countof 9.0 with hemoglobin 14.0, hematocrit 42.9, platelet count 231. INR 1.3 with a PTT 30.9. Her creatinine is elevated at 1.4 but when compared to prior labs has been as high as 1.8. She does have history of chronic kidney disease. Initial high-sensitivity troponin is 23 with repeat at 2 hours being 19. I findthis unacceptable delta troponin and feel that she has been ruled out with biomarkers for ACS. BNP is normal at 130 so I doubt CHF. Urinalysis obtained and is negative for ketones, negative for infection. I do not feel antibiotics are indicated. Her friend thought that maybe she had recent slurring of her speech. I obtained a CT of the brain and there is an area of concern in the left basal ganglia with low-attenuation concerning for recent stroke. I find this more of an incidental finding and do not feel that stroke team needed to beactivated and I do not feel she is a TNK candidate because there is no last known well time and it may be more subacute in nature. Given her borderline hypoxia at 92 to 93% on room air, and that she dipped down to 90% on room air, she was placed on nasal cannula oxygen and administered dexamethasone 6 mg intravenously. I do feel that she merits observation for possible ganglia stroke as well as the COVID and borderline. Patient was discussed with the hospitalist. She is in stable condition. History & Record Review Discussion w/independent historian: Patient and Friend Lab Data Attestation: I reviewed the patient's lab results. Labs: Laboratory Results - last 24 hr 09/12/24 09/12/24 09/12/24 11:22 12:30 12:58 WBC 9.0 RBC 4.46 Hgb 14.0 Hct 42.9 MCV 96.2 MCH 31.4 MCHC 32.6 RDW Std Deviation 47.2 H RDW Coeff of Robert 13.2 Plt Count 231 MPV 10.4 Immature Gran % (Auto) 0.300 Neut % (Auto) 85.1 H Lymph % (Auto) 5.9 L Price % (Auto) 8.4 Eos % (Auto) 0.1 Baso % (Auto) 0.2 Absolute Neuts (auto) 7.7 Absolute Lymphs (auto) 0.53 L Nucleated RBC % 0 PT 16.1 H INR 1.3 APTT 30.9 Sodium 139 Potassium 3.6 Chloride Direct 103 Carbon Dioxide 24.2 Anion Gap 12 BUN 14 Creatinine 1.4 H Estim Creat Clear Calc 53.30 Est GFR (MDRD) Non-Af 44 L BUN/Creatinine Ratio 10.2 Glucose 117 H Lactic Acid 1.6 Calcium 9.0 Total Bilirubin 0.69 AST 28 ALT 17 Alkaline Phosphatase 78 Troponin T High Sens 23 H Delta Troponin T 4 Troponin T Hi Sens 2 Hr 19 H Troponin T Hi Sens 4Hr NT pro BNP II 130 Total Protein 6.5 Albumin 3.9 Globulin 2.6 Albumin/Globulin Ratio 1.5 Urine Color Yellow Urine Clarity Clear Urine pH 6.0 Ur Specific Boutte 1.010 Urine Protein Negative Urine Glucose (UA) Normal Urine Ketones Negative Urine Occult Blood 50 H Urine Nitrite Negative Urine Bilirubin Negative Urine Urobilinogen Normal Ur Leukocyte Esterase Negative Urine RBC 0-5 SEEN Urine WBC 0 SEEN Ur Squamous Epith Cells 0 SEEN Urine Bacteria 0 SEEN Urine Mucus 0 SEEN 02/26/25 13:30 WBC RBC Hgb Hct MCV MCH MCHC RDW Std Deviation RDW Coeff of Robert Plt Count MPV Immature Gran % (Auto) Neut % (Auto) Lymph % (Auto) Price % (Auto) Eos % (Auto) Baso % (Auto) Absolute Neuts (auto) Absolute Lymphs (auto) Nucleated RBC % PT INR APTT Sodium Potassium Chloride Direct Carbon Dioxide Anion Gap BUN Creatinine Estim Creat Clear Calc Est GFR (MDRD) Non-Af BUN/Creatinine Ratio Glucose Lactic Acid Calcium Total Bilirubin AST ALT Alkaline Phosphatase Troponin T High Sens Delta Troponin T Troponin T Hi Sens 2 Hr Troponin T Hi Sens 4Hr 20 H NT pro BNP II Total Protein Albumin Globulin Albumin/Globulin Ratio Urine Color Urine Clarity Urine pH Ur Specific Boutte Urine Protein Urine Glucose (UA) Urine Ketones Urine Occult Blood Urine Nitrite Urine Bilirubin Urine Urobilinogen Ur Leukocyte Esterase Urine RBC Urine WBC Ur Squamous Epith Cells Urine Bacteria Urine Mucus Radiography Diagnostic Testing: Clinical Impression(s) from Imaging Studies Chest X-Ray 09/12/24 11:01 IMPRESSION: No active cardiopulmonary disease. Reading Location: [facility]- Brain CT 09/12/24 11:40 IMPRESSION: 1. Left basal ganglia area of diminished attenuation concerning for recent areaof ischemic infarction. 2. Bilateral maxillary sinus inflammation. Reading Location: [facility]- Management Discussion w/another healthcare provider: Hospitalist (Dr. Denton) Discharge Plan Dx/Rx/DC Orders Clinical Impression: COVID, Chest pain, COPD exacerbation, CKD (chronic kidney disease) stage 3, ISY13-10 ml/min Disposition Disposition: Acute Care Hospital [facility] What to do if you have Problems For any increased pain, shortness of breath, bleeding, nausea or vomiting, chestpain, or any unexpected problems, contact your Primary Care Provider. Call [facility] ([phone]) or report to the closest Emergency Room. Call 911 if necessary. 09/12/24 1503 <Electronically signed by Randy Cabrales MD> Cosigner Signature (if applicable): CC: Dr. Homer Bradford MD ~ Signed [facility] Work Phone: 1(440) 742-692802-26-2025 Evaluation note* Diagnosis Onset Date Resolution Status Admit Date Chest pain acute September 12, 2024 2:50pm COVID acute September 12, 2024 2:50pm Stroke acute September 12, 2024 2:50pm CKD (chronic kidney disease) stage 3, GFR 30-59 ml/min chronic Februa 2024 2:50pm COPD exacerbation chronic uar y 2024 2:50pm [facility] Work Phone: 1(441) 237-113002-26-2025 Evaluation note* Diagnosis Onset Date Resolution Status Admit Date CKD (chronic kidney disease) stage 3, GFR 30-59 ml/min chronic Februa 2024 2:50pm Chest pain resolved September 12, 2024 2:50pm COPD exacerbation resolved 2024 2:50pm COVID resolved September 12, 2024 2:50pm Stroke resolved September 12, 2024 2:50pm Urinary tract infection acute A pril 2024 2:30pm [facility] Work Phone: 1(506) 106-587202-26-2025 Evaluation note* Diagnosis Onset Date Resolution Status Admit Date CKD (chronic kidney disease) stage 3, GFR 30-59 ml/min chronic Februa 2024 2:50pm Chest pain resolved September 12, 2024 2:50pm COPD exacerbation resolved 2024 2:50pm COVID resolved September 12, 2024 2:50pm Stroke resolved September 12, 2024 2:50pm Urinary tract infection inactive A pril 2024 2:30pm Acidosis, lactic acute December 7:30pm Acute alteration in mental status acute January 08, 2025 7:30pm Acute dehydration acute January [id number] 7:30pm Acute hypoxemic respiratory failure acute January 08, 2025 7:30pm Complicated urinary tract infection acute January 08, 2025 7:30pm Elevated temperature acute January 08, 2025 7:30pm Sepsis acute January 08 7:30pm Sinus tachycardia seen on manager cardiac cath acute January 08, 2025 7:30pm [id number] kidney injury chronic January 08, 2025 7:30pm DM (diabetes mellitus), type 2 chronic January 08, 2025 7:30pm History of COPD chronic December 7:30pm HLD (hyperlipidemia) chronic January 08, 2025 7:30pm [facility] Work Phone: 1(580) 153-147802-26-2025 Evaluation note* Diagnosis Onset Date Resolution Status Admit Date CKD (chronic kidney disease) stage 3, GFR 30-59 ml/min chronic 2024 2:50pm Chest pain resolved September 12, 2024 2:50pm COPD exacerbation resolved 2024 2:50pm COVID resolved September 12, 2024 2:50pm Stroke resolved September 12, 2024 2:50pm Urinary tract infection inactive A pril 2024 2:30pm Acidosis, lactic acute December 7:23pm Acute alteration in mental status acute January 08, 2025 7:23pm Acute dehydration acute January 082024 7:23pm Acute hypoxemic respiratory failure acute January 08, 2025 7:23pm Complicated urinary tract infection acute January 08, 2025 7:23pm Elevated temperature acute January 08, 2025 7:23pm Sepsis acute January 08 7:23pm Sinus tachycardia seen on manager cardiac cath acute January 08, 2025 7:23pm [id number] kidney injury chronic January 08, 2025 7:23pm DM (diabetes mellitus), type 2 chronic January 08, 2025 7:23pm History of COPD chronic December 7:23pm HLD (hyperlipidemia) chronic January 08, 2025 7:23pm [facility] Work Phone: 1(573) 101-942802-26-2025 History and physical note [facility] Medical Records Department [address] [place] [id number] H&P Exam - Hospitalist 09/12/24 1459 MR#: [id number] Acct: [id number] Name: PERNELL RODRIGUEZ CHEKO Rep #:[id number] : 1960 64 From: Wilfredo Denton DO PCP: Dr. Hoemr Bradford MD Status:REG ER Location: ED HPI - General General Date of Service: 09/12/24 Chief Complaint: difficulty speaking. HPI Narrative PERNELL RODRIGUEZ, is a 64 F who presents with difficulty speaking. Patient was recently [facility] in a[facility] in [facility] from the beginning of August to yesterday. The circumstances of that hospitalization are not known to the patient nor the family friend who is at bedside. He statesthat the patient was admitted there for concern for a blood clot but that likelydid michael and switch admitted to a psychiatric facility for unclear reasons. While she was there her medication was discontinued and then she was sent home. Patient has been weak and then today when going to breakfast she had difficulty speaking which was concerning and brought her to the emergency room. In the emergency room, patient was noted to have COVID-19 and she had a head CT That showed a left basal ganglier area diminished attenuation concerning for recent area of ischemic infarction. Also showing bilateral maxillary sinus inflammation. Patient is a rather poor historian so much of the history is obtained to the emergency room physician as well as the patient's friend at bedside. Patientis confabulates at bedside and goes off on tangents that are not germane to the questions. [facility] Medical History (Updated 09/12/24 @ 15:[address] Wilfredo Denton, DO) History of echocardiogram Wears glasses Anxiety Depression Post-menopausal History of renal disease High cholesterol Back pain TIA (transient ischemic attack) Gastric reflux Smoker Shortness of breath on exertion History of pain when walking History of edema Cardiology follow-up encounter History of heart attack Chest pain History of left heart catheterization (LHC) (~12/30/20) CKD (chronic kidney disease) stage 3, GFR 30-59 ml/min Lung nodule COPD (chronic obstructive pulmonary disease) Paroxysmal atrial fibrillation Elevated liver enzymes Acute respiratory failure with hypoxia Stroke IBS (irritable bowel syndrome) Hyperlipidemia Heart disease Migraines Frequent headaches Gastrointestinal problem Diabetes History of back problems Asthma Arthritis Home Medications ?Medication ?Instructions ?Recorded ?Last Taken ?Type hyoscyamine sulfate 0.375 mg 0.375 mg PO BID 06/22/17 09/08/20 History tablet,extended release,12 hr (Oscimin SR) lovastatin 20 mg tablet 20 mg PO QDAY 06/22/1709/08 History ipratropium 0.5 mg-albuterol 3 mg 3 ml inhalation Q4HW A.RT PRN 09/07/21 Unknown Rx (2.5 mg base)/3 mL nebulization shortness of breath or wheezing #0 soln mL lorazepam 0.5 mg tablet (Ativan) 0.5 mg PO Q12H PRN An xiety 09/28/21 Unknown History omega-3 fatty acids-fish oil 360 1 cap PO BID 03/04/23 Unknown History mg-1,200 mg capsule (Fish Oil) vitamin B complex (B 1 tab PO BID 03/04/23 Unknow n History Complex-Vitamin B12 tablet) albuterol sulfate 90 mcg/actuation 1 puff inhalation Q 6H #8.5 grams 05/13/23 Unknown Rx aerosol inhaler (Ventolin HFA) citalopram 10 mg tablet (Celexa) 10 mg PO DAILY Unknown History furosemide 20 mg tablet 20 mg PO BID 11/18/23 Unknow n History omeprazole 40 mg capsule,delayed 40 mg PO DAILY Unknown History release trazodone 100 mg tablet 200 mg PO QHS 11/18/23 Unkno wn History apixaban 5 mg tablet (Eliquis) 5 mg PO Q12H 09/12/24 U nknown History quetiapine 200 mg tablet,extended 200 mg PO BID Unknown History release 24 hr Allergy/AdvReac Type Severity Reaction Status Date / Time Penicillins Allergy Intermediate Hives Verified 09/12/24 10:32 carbamazepine (From Tegretol) AdvReac Intermediate Nausea Verified 09/12/24 10:32 benztropine AdvReac Unknown Verified 09/12/24 10:32 diazepam (From Valium) AdvReac Other Verified 09/12/24 10:32 Sulfa (Sulfonamide AdvReac Nausea Verified 09/12/24 10:32 Antibiotics) thioridazine AdvReac Nausea Verified 09/12/24 10:32 thioridazine HCl (From AdvReac Other Verified 09/12/24 10:32 Mellaril) Family History Grandmother Cancer stomach Father Cancer lung Sister Breast cancer Surgical History Hx of surgical procedure History of carpal tunnel surgery History of elbow surgery H/O shoulder surgery H/O hand surgery H/O dilation and curettage Hx of cholecystectomy History of tonsillectomy Social History household members: family housing: other details: Mobile home Smoking Status: Heavy Smoker (>10/day) alcohol intake: never substance use type: does not use caffeine: Yes what type of physical activity do you participate in: walking seatbelt use: always do you feel safe at home: Yes ROS ROS Narrative Feeling chilled, cough, shortness of breath. All review of systems were negative except as mentioned above in the history of present illness and the other review of systems. Vital Signs Vital Signs Vital Signs: 09/12/24 10:25 09/12/24 11:04 09/12/24 11:35 Temperature 36.7 C Temperature Source Temporal Pulse Rate 105 H 101 H Respiratory Rate 19 H 15 Blood Pressure 100/65 113/66 Blood Pressure Mean 76 81 Pulse Ox 92 90 Oxygen Delivery Method Room Air Room Air Room Air 09/12/24 13:00 Temperature Temperature Source Pulse Rate 102 H Respiratory Rate 20 H Blood Pressure 136/83 H Blood Pressure Mean 98 Pulse Ox 93 Oxygen Delivery Method Weight Weight: 124 kg Body Mass Index (BMI) 47.6 Physical Exam Const alert and no apparent distress HEENT normocephalic, head/scalp atraumatic and hearing grossly normal bilaterally Mouth: moist mucous membranes abnormal parched Eyes PERRL and EOMs intact bilaterally Neck no lymphadenopathy Neck Narrative: No thyromegaly Resp normal respiratory effort, no retractions, no use of accessory muscles and clearto auscultation bilaterally Cardio regular rate, regular rhythm, S1 normal heart sound and S2 normal heart sound GI normal to inspection, nondistended, normoactive bowel sounds, soft to palpation,non-tender, non-distended and hepatosplenomegaly Extremity normal to inspection and full ROM Skin Skin Narrative: No rashes or lesions Neuro oriented x3, CN's II-XII intact bilaterally, moves all extremities and no focal motor deficits Sensorium / Orientation: awake, alert, oriented to person, oriented to place andoriented to time Speech: speech normal Motor Exam: strength 5/5 throughout Psych Mood & Affect: anxious Results Lab / Micro Data Attestation: I reviewed the patient's lab results. 09/12/24 11:22 09/12/24 11:22 Labs: Laboratory Results - last 24 hr 09/12/24 11:22: WBC 9.0, RBC 4.46, Hgb 14.0, Hct 42.9, MCV 96.2, MCH 31.4, MCHC 32.6, RDW Std Deviation 47.2 H, RDW Coeff of Robert 13.2, Plt Count 231, MPV 10.4, Immature Gran % (Auto) 0.300, Neut % (Auto) 85.1 H, Lymph % (Auto) 5.9 L, Price %(Auto) 8.4, Eos % (Auto) 0.1, Baso % (Auto) 0.2, Absolute Neuts (auto) 7.7, Absolute Lymphs (auto) 0.53 L, Nucleated RBC % 0, PT 16.1 H, INR 1.3, APTT 30.9, Sodium 139, Potassium 3.6, Chloride Direct 103, Carbon Dioxide 24.2, Anion Gap 12, BUN 14, Creatinine 1.4 H, Estim Creat Clear Calc 53.30, Est GFR (MDRD) Non- Af 44 L, BUN/Creatinine Ratio 10.2, Glucose 117 H, Lactic Acid 1.6, Calcium 9.0,Total Bilirubin 0.69, AST 28, ALT 17, Alkaline Phosphatase 78, Troponin T High Sens 23 H, NT pro BNP II 130, Total Protein 6.5, Albumin 3.9, Globulin 2.6, Albumin/Globulin Ratio 1.5 09/12/24 12:30: Urine Color Yellow, Urine Clarity Clear, Urine pH 6.0, Ur Specific Boutte 1.010, Urine Protein Negative, Urine Glucose (UA) Normal, UrineKetones Negative, Urine Occult Blood 50 H, Urine Nitrite Negative, Urine Bilirubin Negative, Urine Urobilinogen Normal, Ur Leukocyte Esterase Negative, Urine RBC 0-5 SEEN, Urine WBC 0 SEEN, Ur Squamous Epith Cells 0 SEEN, Urine Bacteria 0 SEEN, Urine Mucus 0 SEEN 09/12/24 12:58: Delta Troponin T 4, Troponin T Hi Sens 2 Hr 19 H 09/12/24 13:30: Troponin T Hi Sens 4Hr 20 H Micro: Microbiology 09/12/24 11:22 Mucosa - Nose SARS-CoV-2, Influenza & RSV (PCR) - Final SARS-CoV-2 (COVID 19) Imaging Radiology Impression Chest X-Ray 09/12/24 11:01 IMPRESSION: No active cardiopulmonary disease. Reading Location: [facility] 09/12/24 11:40 IMPRESSION: 1. Left basal ganglia area of diminished attenuation concerning for recent areaof ischemic infarction. 2. Bilateral maxillary sinus inflammation. Reading Location: [facility] Assessment & Plan Assessment/Plan (1) Stroke: PLAN: Patient has a history of stroke but no prior imaging in our system. CAT scan showed recent basal ganglier infarct. Will start aspirin. Check an MRI of the brain, MRA of the head and neck. NIH is currently 0 and nota candidate for TNK. Additionally check an echo, physical, occupational and speech therapy evaluation. (2) COVID: PLAN: Unclear time of onset as patient is poor historian so we will take today is day 0. Patient received dexamethasone emergency room and will continue for 9more days. Patient appears dry and her creatinine is elevated though seems lower than her baseline. Will hold off on remdesivir at this time. PLAN: Plan Homeless: New development. Patient just discharged from the psychiatric facility. Case management to assist. Anticipate the patient may require shelter facility when she is medically ready for discharge. Recent psychiatric hospitalization for roughly 20 days in [facility]. Will request records if were able to get those to see what actually was going on. Patient has bipolar disorder. Chronic conditions * Obesity class III: Complicates care and recovery. * Diabetes mellitus type 2: Sign scale insulin. Check an A1c. * Paroxysmal atrial fibrillation: Continue with anticoagulation with apixaban VTE prophylaxis: Not indicated as patient is on apixaban CODE STATUS: Addressed with the patient. Patient should be full code. Disposition: To be determined. When patient is medically ready anticipate patient would likely require shelter facility. Charges/Coding Visit Charges Inpatient E&M: 47802 Init Hosp L3 09/12/24 1509 Cosigner Signature (if applicable): CC: Dr. Wilfredo Denton DO; Dr. Homer Bradford MD~ Signed [facility]02-26-2025 Discharge summary [facility] Medical Records Department [address] [place] [address] Emergency Department Summary 09/12/24 MR#: [id number] Acct: [id number] Name: PERNELL RODRIGUEZ Rep #:[id number] : 1960 64 From: Randy Cabrales MD PCP: Dr. Homer Bradford MD Status:REG ER Location: ED HPI History of Present Illness Chief Complaint: Chest Pain Narrative Narrative: 64-year-old female past medical history of psychiatric disorder/tar dive dyskinesia presents via EMS with multiple somatic complaints. She states that she was just released from a mental hospital in [place] yesterday. She lives here. She states over the last 3 weeks she has had intermittent fever. Additionally she states that she has had chest pain as well as left shoulder pain that is chronic for her. States her heart hurts and she has history of kidney disease. Her friend who is with herstates that she came back to the area and all her primary care providers are here. She once again presents with multiple complaints. [facility] Medical History History of echocardiogram Wears glasses Anxiety Depression Post-menopausal History of renal disease High cholesterol Back pain TIA (transient ischemic attack) Gastric reflux Smoker Shortness of breath on exertion History of pain when walking History of edema Cardiology follow-up encounter History of heart attack Chest pain History of left heart catheterization (LHC) (~12/30/20) CKD (chronic kidney disease) stage 3, GFR 30-59 ml/min Lung nodule COPD (chronic obstructive pulmonary disease) Paroxysmal atrial fibrillation Elevated liver enzymes Acute respiratory failure with hypoxia Stroke IBS (irritable bowel syndrome) Hyperlipidemia Heart disease Migraines Frequent headaches Gastrointestinal problem Diabetes History of back problems Asthma Arthritis Home Medications ?Medication ?Instructions ?Recorded ?Last Taken ?Type hyoscyamine sulfate 0.375 mg 0.375 mg PO BID 06/22/17 09/08/20 History tablet,extended release,12 hr (Oscimin SR) lovastatin 20 mg tablet 20 mg PO QDAY 06/22/1709/08 History ipratropium 0.5 mg-albuterol 3 mg 3 ml inhalation Q4HW A.RT PRN 09/07/21 Unknown Rx (2.5 mg base)/3 mL nebulization shortness of breath or wheezing #0 soln mL lorazepam 0.5 mg tablet (Ativan) 0.5 mg PO Q12H PRN An xiety 09/28/21 Unknown History omega-3 fatty acids-fish oil 360 1 cap PO BID 03/04/23 Unknown History mg-1,200 mg capsule (Fish Oil) vitamin B complex (B 1 tab PO BID 03/04/23 Unknow n History Complex-Vitamin B12 tablet) albuterol sulfate 90 mcg/actuation 1 puff inhalation Q 6H #8.5 grams 05/13/23 Unknown Rx aerosol inhaler (Ventolin HFA) citalopram 10 mg tablet (Celexa) 10 mg PO DAILY Unknown History furosemide 20 mg tablet 20 mg PO BID 11/18/23 Unknow n History omeprazole 40 mg capsule,delayed 40 mg PO DAILY Unknown History release trazodone 100 mg tablet 200 mg PO QHS 11/18/23 Unkno wn History apixaban 5 mg tablet (Eliquis) 5 mg PO Q12H 09/12/24 U nknown History quetiapine 200 mg tablet,extended 200 mg PO BID Unknown History release 24 hr Allergy/AdvReac Type Severity Reaction Status Date / Time Penicillins Allergy Intermediate Hives Verified 09/12/24 10:32 carbamazepine (From Tegretol) AdvReac Intermediate Nausea Verified 09/12/24 10:32 benztropine AdvReac Unknown Verified 09/12/24 10:32 diazepam (From Valium) AdvReac Other Verified 09/12/24 10:32 Sulfa (Sulfonamide AdvReac Nausea Verified 09/12/24 10:32 Antibiotics) thioridazine AdvReac Nausea Verified 09/12/24 10:32 thioridazine HCl (From AdvReac Other Verified 09/12/24 10:32 Mellaril) Family History Grandmother Cancer stomach Father Cancer lung Sister Breast cancer Surgical History Hx of surgical procedure History of carpal tunnel surgery History of elbow surgery H/O shoulder surgery H/O hand surgery H/O dilation and curettage Hx of cholecystectomy History of tonsillectomy Social History household members: family housing: other details: Mobile home Smoking Status: Heavy Smoker (>10/day) alcohol intake: never substance use type: does not use caffeine: Yes what type of physical activity do you participate in: walking seatbelt use: always do you feel safe at home: Yes ROS ROS ED ROS Narrative Constitutional: Positive fever, no chills. HEENT: No sore throat. No neck pain. No loss of vision. No rhinorrhea. Cardiovascular: 3 weeks chest pain. No palpitations. Worsening pedal edema. Respiratory: No cough, no shortness of breath. Abdominal: No abdominal pain. No nausea. No vomiting. Genitourinary: No dysuria. No hematuria. Musculoskeletal: No myalgias. No arthralgias. Neurologic: No headaches. No dizziness. No lightheadedness. Skin: No rash. No change in color. Psychiatric: No depression. No anxiety. EXAM Physical Exam Narrative Exam Narrative: Afebrile. Vital signs noted. Slightly drowsy on examination. Cardiovascular examination reveals mild tachycardia. Lungs clear to auscultation bilaterally. Abdomen soft nontender without guarding or rebound. Trace pedal edema bilateral, equal and symmetric. Const Vital Signs: 09/12/24 10:25 09/12/24 11:04 09/12/24 11:35 Temperature 98.1 F Temperature Source Temporal Pulse Rate 105 H 101 H Respiratory Rate 19 H 15 Blood Pressure 100/65 113/66 Blood Pressure Mean 76 81 Pulse Ox 92 90 Oxygen Delivery Method Room Air Room Air Room Air 09/12/24 13:00 09/12/24 15:00 Temperature 99.4 F H Temperature Source Pulse Rate 102 H 101 H Respiratory Rate 20 H 20 H Blood Pressure 136/83 H 93/56 L Blood Pressure Mean 98 68 Pulse Ox 93 97 Oxygen Delivery Method MDM MDM MDM Narrative Medical decision making narrative: Differential diagnosis includes but not limited to COPD exacerbation versus exacerbation of her tardive dyskinesia versus ACS versus pneumonia versus pneumothorax. Comprehensive workup was pursued. EKG obtained and interpreted by myself independently as normal sinus rhythm at 93 bpm without ectopy or acuteST changes. No STEMI. I reviewed her laboratory work and she has a white countof 9.0 with hemoglobin 14.0, hematocrit 42.9, platelet count 231. INR 1.3 with a PTT 30.9. Her creatinine is elevated at 1.4 but when compared to prior labs has been as high as 1.8. She does have history of chronickidney disease. Initial high-sensitivity troponin is 23 with repeat at 2 hours being 19. I findthis unacceptable delta troponin and feel that she has been ruled out with biomarkers for ACS. BNP is normal at 130 so I doubt CHF. Urinalysis obtained and is negative for ketones, negative for infection.I do not feel antibiotics are indicated. Her friend thought that maybe she had recent slurring of her speech. I obtained a CT of the brain and there is an area of concern in the left basal ganglia with low-attenuation concerning for recent stroke. I find this more of an incidental finding and do not feel that stroke team needed to beactivated and I do not feel she is a TNK candidate because thereis no last known well time and it may be more subacute in nature. Given her borderline hypoxia at 92 to 93% on room air, and that she dipped down to 90% on room air,she was placed on nasal cannula oxygen and administered dexamethasone 6 mg intravenously. I do feelthat she merits observation for possible ganglia stroke as well as the COVID and borderline. Patient was discussed with the hospitalist. She is in stable condition. History & Record Review Discussion w/independent historian: Patient and Friend Lab Data Attestation: I reviewed the patient's lab results. Labs: Laboratory Results - last 24 hr 09/12/24 09/12/24 09/12/24 11:22 12:30 12:58 WBC 9.0 RBC 4.46 Hgb 14.0 Hct 42.9 MCV 96.2 MCH 31.4 MCHC 32.6 RDW Std Deviation 47.2 H RDW Coeff of Robert 13.2 Plt Count 231 MPV 10.4 Immature Gran % (Auto) 0.300 Neut % (Auto) 85.1 H Lymph % (Auto) 5.9 L Price % (Auto) 8.4 Eos % (Auto) 0.1 Baso % (Auto) 0.2 Absolute Neuts (auto) 7.7 Absolute Lymphs (auto) 0.53 L Nucleated RBC % 0 PT 16.1 H INR 1.3 APTT 30.9 Sodium 139 Potassium 3.6 Chloride Direct 103 Carbon Dioxide 24.2 Anion Gap 12 BUN 14 Creatinine 1.4 H Estim Creat Clear Calc 53.30 Est GFR (MDRD) Non-Af 44 L BUN/Creatinine Ratio 10.2 Glucose 117 H Lactic Acid 1.6 Calcium 9.0 Total Bilirubin 0.69 AST 28 ALT 17 Alkaline Phosphatase 78 Troponin T High Sens 23 H Delta Troponin T 4 Troponin T Hi Sens 2 Hr 19 H Troponin T Hi Sens 4Hr NT pro BNP II 130 Total Protein 6.5 Albumin 3.9 Globulin 2.6 Albumin/Globulin Ratio 1.5 Urine Color Yellow Urine Clarity Clear Urine pH 6.0 Ur Specific Boutte 1.010 Urine Protein Negative Urine Glucose (UA) Normal Urine Ketones Negative Urine Occult Blood 50 H Urine Nitrite Negative Urine Bilirubin Negative Urine Urobilinogen Normal Ur Leukocyte Esterase Negative Urine RBC 0-5 SEEN Urine WBC 0 SEEN Ur Squamous Epith Cells 0 SEEN Urine Bacteria 0 SEEN Urine Mucus 0 SEEN 09/12/24 13:30 WBC RBC Hgb Hct MCV MCH MCHC RDW Std Deviation RDW Coeff of Robert Plt Count MPV Immature Gran % (Auto) Neut % (Auto) Lymph % (Auto) Price % (Auto) Eos % (Auto) Baso % (Auto) Absolute Neuts (auto) Absolute Lymphs (auto) Nucleated RBC % PT INR APTT Sodium Potassium Chloride Direct Carbon Dioxide Anion Gap BUN Creatinine Estim Creat Clear Calc Est GFR (MDRD) Non-Af BUN/Creatinine Ratio Glucose Lactic Acid Calcium Total Bilirubin AST ALT Alkaline Phosphatase Troponin T High Sens Delta Troponin T Troponin T Hi Sens 2 Hr Troponin T Hi Sens 4Hr 20 H NT pro BNP II Total Protein Albumin Globulin Albumin/Globulin Ratio Urine Color Urine Clarity Urine pH Ur Specific Boutte Urine Protein Urine Glucose (UA) Urine Ketones Urine Occult Blood Urine Nitrite Urine Bilirubin Urine Urobilinogen Ur Leukocyte Esterase Urine RBC Urine WBC Ur Squamous Epith Cells Urine Bacteria Urine Mucus Radiography Diagnostic Testing: Clinical Impression(s) from Imaging Studies Chest X-Ray 09/12/24 11:01 IMPRESSION: No active cardiopulmonary disease. Reading Location: [facility] 09/12/24 11:40 IMPRESSION: 1. Left basal ganglia area of diminished attenuation concerning for recent areaof ischemic infarction. 2. Bilateral maxillary sinus inflammation. Reading Location: [facility] Management Discussion w/another healthcare provider: Hospitalist (Dr. Denton) Discharge Plan Dx/Rx/DC Orders Clinical Impression: COVID, Chest pain, COPD exacerbation, CKD (chronic kidney disease) stage 3, [id number] ml/min Disposition Disposition: Acute Care Hospital [facility] What to do if you have Problems For any increased pain, shortness of breath, bleeding, nausea or vomiting, chestpain, or any unexpected problems, contact your Primary Care Provider. Call [facility] ([phone]) or report tothe closest Emergency Room. Call 911 if necessary. 09/12/24 1503 Cosigner Signature (if applicable): CC: Dr. Homer Bradford MD ~ Signed [facility]02-26-2025 Radiology Diagnostic study note [facility] Imaging Services [address] [place] [address] Chest 1 View (Portable) MR#: [id number] Acct: [id number] Name: PERNELL RODRIGUEZ Rep #: [id number] : 1960 F 64 From: Carolyn Meza MD PCP: Dr. Homer Bradford MD Status: [facility] ER Study:Chest 1 View (Portable) Date of Exam: 09/12/24 Exam# [id number] Ordering Dr: Randy Cabrales MD PROCEDURE: CHEST 1 VIEW (PORTABLE) REASON FOR EXAM: Chest pain. Left shoulder pain. TECHNIQUE: Frontal view of the chest. COMPARISON: CT chest dated 05/11/2023 FINDINGS: Lungs: Lungs clear of pneumonia and congestion. Pleura: No pleural effusions, thickening, or pneumothorax. Heart: Normal in size and configuration. Mediastinum/Fide: Unremarkable. Great vessels: Unremarkable. Bones/soft tissues: Unremarkable. Cardiac monitoring leads overlie the chest wall. RAD/Chest 1 View (Portable) IMPRESSION: No active cardiopulmonary disease. Reading Location: [facility] CC: Dr. Randy Cabrales MD; Dr. Homer Bradford MD ~ Train Announcer: Signed [facility]02-26-2025 Radiology Diagnostic study note [facility] Imaging Services [address] [place] [address] Brain/Head without Contrast MR#: [id number] Acct: [id number] Name: PERNELL RODRIGUEZ Rep #: [id number] : 1960 F 64 From: Carolyn Meza MD PCP: Dr. Homer Bradford MD Status: REG ER Study:Brain/Head without Contrast Date of Exa m: 09/12/24 Exam# [id number] Ordering Dr: Randy Cabrales MD EXAM: CT BRAIN WITHOUT CONTRAST CLINICAL HISTORY: MENTAL STATUS CHANGE. EVALUATE FOR CVA. COMPARISON: NO RELEVANT PRIOR. TECHNIQUE: Contiguous axial scans of 3.75 mm slice thicknesses with sagittal and coronal reconstruction images. One or more dose reduction techniques were utilized (e.g., automated exposure control, adjustment of mA and/or kv according to patient size, use of iterative reconstruction technique). FINDINGS: Cerebrum: No intraparenchymal hemorrhage. A 0.9 cm area of decreased attenuation is demonstrated inthe left basal ganglia, axial image 19. No mass effect or midline shift. Yung-white matter differentiation is normal. Ventricles and cisterns: Appropriate size for patient's age. Extra-axial fluid: Unremarkable. Posterior fossa: Unremarkable cerebellum. Punctate calcification in the left cerebellar hemisphere,axial image 12. No abnormalities involving the brainstem. Paranasal sinuses: Mild mucoperiosteal thickening in the maxillary sinuses.. Vasculature: Unremarkable. Mastoid air cells: Normal. Calvarium: Unremarkable. Soft tissues: Unremarkable. CT/Brain/Head without Contrast IMPRESSION: 1. Left basal ganglia area of diminished attenuation concerning for recent areaof ischemic infarction. 2. Bilateral maxillary sinus inflammation. Reading Location: [facility] CC: Dr. Randy Cabrales MD; Dr. Homer Bradford MD ~ Train Announcer: Signed [facility]12-04-2024 Telephone encounter Note* Telephone Encounter - Homer Bradford MD - 06/20/2024 8:31 PM EST The following approved medication requests have been transmitted electronically. Requested Prescriptions Signed Prescriptions Disp Refills omeprazole (PRILOSEC) 40 mg capsule 90 capsule 1 Sig: Take 1 capsule by mouth once daily. Authorizing Provider: HOMER BRADFORD hyoscyamine SR (LEVBID) 0.375 mg 12 hr tablet 180 tablet 1 Sig: Take 1 tablet by mouth two times a day. Authorizing Provider: HOMER BRADFORD MD [facility]12-04-2024 Miscellaneous Notes* Telephone Encounter - Homer Bradford MD - 06/20/2024 8:31 PM EST The following approved medication requests have been transmitted electronically. Requested Prescriptions Signed Prescriptions Disp Refills omeprazole (PRILOSEC) 40 mg capsule 90 capsule 1 Sig: Take 1 capsule by mouth once daily. Authorizing Provider: HOMER BRADFORD hyoscyamine SR (LEVBID) 0.375 mg 12 hr tablet 180 tablet 1 Sig: Take 1 tablet by mouth two times a day. Authorizing Provider: HOMER BRADFORD MD * Telephone Encounter - Ana Cardoza LPN - 06/20/2024 2:55 PM EST The patient has been identified by name and date of : Yes Caregiver verified no other encounters exist for this prescription request: Yes Caregiver confirmed with patient/requestor that no other refills are due, in the near future, with this provider at this time: Yes The last office visit in the department: 03/22/2024 Does the patient have a future office visit with this provider/department: Yes 09/20/2024 Requested Prescriptions Pending Prescriptions Disp Refills omeprazole (PRILOSEC) 40 mg capsule 90 capsule 0 Sig: Take 1 capsule by mouth once daily. hyoscyamine SR (LEVBID) 0.375 mg 12 hr tablet 180 tablet 0 Sig: Take 1 tablet by mouth two times a day. Ana Cardoza LPN June 20, 2024 2:55 PM [facility] Telephone encounter Note * Telephone Encounter - Ana Cardoza LPN - 06/20/2024 2:55 PM EST The patient has been identified by name and date of : Yes Caregiver verified no other encounters exist for this prescription request: Yes Caregiver confirmed with patient/requestor that no other refills are due, in the near future, with this provider at this time: Yes The last office visit in the department: 03/22/2024 Does the patient have a future office visit with this provider/department: Yes 09/20/2024 Requested Prescriptions Pending Prescriptions Disp Refills omeprazole (PRILOSEC) 40 mg capsule 90 capsule 0 Sig: Take 1 capsule by mouth once daily. hyoscyamine SR (LEVBID) 0.375 mg 12 hr tablet 180 tablet 0 Sig: Take 1 tablet by mouth two times a day. Ana Cardoza LPN June 20, 2024 2:55 PM [facility]10-12-2024 Telephone encounter Note* Telephone Encounter - Homer Bradford MD - 04/28/2024 7:55 AM EDT The following approved medication requests have been transmitted electronically. Requested Prescriptions Signed Prescriptions Disp Refills lovastatin 40 mg tablet 90 tablet 1 Sig: TAKE 1 TABLET BY MOUTH DAILY AT BEDTIME. FOR CHOLESTEROL. Authorizing Provider: HOMER BRADFORD MD [facility]10-12-2024 Miscellaneous Notes* Telephone Encounter - Homer Bradford MD - 04/28/2024 7:55 AM EDT The following approved medication requests have been transmitted electronically. Requested Prescriptions Signed Prescriptions Disp Refills lovastatin 40 mg tablet 90 tablet 1 Sig: TAKE 1 TABLET BY MOUTH DAILY AT BEDTIME. FOR CHOLESTEROL. Authorizing Provider: HOMER BRADFORD MD * Telephone Encounter - Ana Lilia Rasheed LPN - 04/27/2024 3:40 PM EDT Prescription Refill Information The patient has been identified by name and date of : Yes Caregiver verified no other encounters exist for this prescription request: Yes Caregiver confirmed with patient/requestor that no other refills are due, in the near future, with this provider at this time: Yes The last office visit in the department: 03/22/24 Does the patient have a future office visit with this provider/department: Yes Requested Prescriptions Pending Prescriptions Disp Refills lovastatin 40 mg tablet 90 tablet 1 Sig: TAKE 1 TABLET BY MOUTH DAILY AT BEDTIME. FOR CHOLESTEROL. Ana Lilia Rasheed LPN April 27, 2024 3:40 PM documented in [facility] Telephone encounter Note * Telephone Encounter - Ana Lilia Rasheed LPN - 04/27/2024 3:40 PM EDT Prescription Refill Information The patient has been identified by name and date of : Yes Caregiver verified no other encounters exist for this prescription request: Yes Caregiver confirmed with patient/requestor that no other refills are due, in the near future, with this provider at this time: Yes The last office visit in the department: 03/22/24 Does the patient have a future office visit with this provider/department: Yes Requested Prescriptions Pending Prescriptions Disp Refills lovastatin 40 mg tablet 90 tablet 1 Sig: TAKE 1 TABLET BY MOUTH DAILY AT BEDTIME. FOR CHOLESTEROL. Ana Lilia Rasheed LPN April 27, 2024 3:40 PM [facility]09-12-2024 Telephone encounter Note* Telephone Encounter - Mary Ann Rodriguez LPN - 03/29/2024 10:57 AM EDT The patient has been identified by name and date of : Yes Pharmacy Caregiver verified no other encounters exist for this prescription request: Yes Caregiver confirmed with patient/requestor that no other refills are due, in the near future, with this provider at this time: Yes The last office visit in the department: 03/22/2024 Does the patient have a future office visit with this provider/department: Yes 09/20/2024 Requested Prescriptions Pending Prescriptions Disp Refills hyoscyamine SR (LEVBID) 0.375 mg 12 hr tablet 180 tablet 0 Sig: Take 1 tablet by mouth two times a day. omeprazole (PRILOSEC) 40 mg capsule 90 capsule 0 Sig: Take 1 capsule by mouth once daily. Mary Ann Rodriguez LPN March 29, 2024 10:57 AM [facility]09-12-2024 Miscellaneous Notes* Telephone Encounter - Mary Ann Rodriguez LPN - 03/29/2024 10:57 AM EDT The patient has been identified by name and date of : Yes Pharmacy Caregiver verified no other encounters exist for this prescription request: Yes Caregiver confirmed with patient/requestor that no other refills are due, in the near future, with this provider at this time: Yes The last office visit in the department: 03/22/2024 Does the patient have a future office visit with this provider/department: Yes 09/20/2024 Requested Prescriptions Pending Prescriptions Disp Refills hyoscyamine SR (LEVBID) 0.375 mg 12 hr tablet 180 tablet 0 Sig: Take 1 tablet by mouth two times a day. omeprazole (PRILOSEC) 40 mg capsule 90 capsule 0 Sig: Take 1 capsule by mouth once daily. Mary Ann Rodriguez LPN March 29, 2024 10:57 AM documented in [facility] encounter[facility] Telephone encounter Note * Telephone Encounter - Мария Hernandes LPN - 03/26/2024 3:09 PM EDT Pt notified of results and provider message. Мария Hernandes LPN [facility]09-09-2024 Miscellaneous Notes* Telephone Encounter - Мария Hernandes LPN - 03/26/2024 3:09 PM EDT Pt notified of results and provider message. Мария Hernandes LPN * Telephone Encounter - Carol Armenta MA - 03/26/2024 9:30 AM EDT Message left for pt to call back for results. Carol Armenta MA * Telephone Encounter - Aspen Bell LPN - 03/23/2024 1:44 PM EDT Left message for pt to contact office. Aspen Bell LPN * Telephone Encounter - Meagan Yusuf PA-C - 03/23/2024 11:03 AM EDT Covid/flu/rsv neg. Kidney function is stable. A1c has improved. Cholesterol stable. documented in this encounterMer[facility] History of Present illness Narrative* Aspen Bell LPN - 03/26/2024 2:37 PM EDT Scan on 03/26/2024 1:49 PM by ProviderGita PA-C: Consultation - Dermatology documented in this encounterMer[facility] Telephone encounter Note * Telephone Encounter - Carol Armenta MA - 03/26/2024 9:30 AM EDT Message left for pt to call back for results. Carol Armenta MA [facility]09-06-2024 Telephone encounter Note* Telephone Encounter - Aspen Bell LPN - 03/23/2024 1:44 PM EDT Left message for pt to contact office. Aspen Bell LPN [facility]09-06-2024 Telephone encounter Note* Telephone Encounter - Meagan Yusuf PA-C - 03/23/2024 11:03 AM EDT Covid/flu/rsv neg. Kidney function is stable. A1c has improved. Cholesterol stable. [facility]09-05-[facility] History of Present illness Narrative* Meagan Yusuf PA-C - 03/22/2024 1:05 PM EDT Chief Complaint Patient presents with: Medicare Wellness Exam Physical HPI Pernell Rodriguez is a 64 year old female who presents here today for physical. . Patient with complex hx as below. Patient is poor historian. Has had URI symptoms for months. States it seems to come and go. No fever. Requesting covid test. No exposure. Recently approved for disability due to COPD. Working with allergy drMarci Past medical history, appointments, medications, allergies reviewed. Previous Medical History PAST MEDICAL HISTORY 10/25/2014: ASHD (arteriosclerotic heart disease) Comment: Sees Dr. Goins 04/25/2015: Bilateral leg edema 04/25/2015: Bipolar affective disorder (HCC) Comment: Sees Dr. Colindres 02/14/2014: Chest pain Comment: Sees Dr. Jacob in [facility]. Had a normal cardiac CTA in 2009 with no calcium. 04/02/2015: Chronic back pain greater than 3 months duration 03/12/2020: Chronic insomnia Comment[facility] on mel[facility]. 04/25/2015: Chronic obstructive pulmonary disease (HCC) 01/14/2014: Chronic pain 02/12/2014: Constipation 11/16/2015: [place] or callus 10/11/2017: Current use of proton pump inhibitor 01/14/2014: CVA (cerebral infarction) 01/14/2014: Diabetic eye exam ([facility]) Comment: Sees Dr. Sanchez last done 03/02/2019 01/14/2014: Diabetic foot ([facility]) Comment: Sees Dr. Martins 01/14/2014: Extrapyramidal reaction 04/25/2015: Gastroesophageal reflux disease without esophagitis 04/25/2015: History of CVA (cerebrovascular accident) Comment: [facility] 01/14/2014: Hives 01/14/2014: Hypotension Comment: [facility] ([facility] and has her on fludrocortisone 07/08/2017: Incontinence of feces 04/28/2017: Irritable bowel syndrome with both constipation and diarrhea 01/14/2014: Low back pain 07/16/2022: Low vitamin B12 level 04/16/2014: Lumbosacral neuritis 04/25/2015: Major depressive disorder, recurrent episode, moderate ([facility]) Comment: On disability 04/28/2017: Migraine without aura and without status migrainosus, not intractable Comment: Seeing Dr. Calderón 01/14/2014: Mixed hyperlipidemia 07/25/2018: Mixed incontinence urge and stress (male)(female) 10/27/2016: Morbid obesity due to excess calories ([facility]) 07/25/2018: Muscle weakness (generalized) 04/16/2014: Myofascial pain 12/17/2015: Nodule of left lung Comment: CT 09/2018 still stable, no further CT's needed. Seen on CT of abd/pelv 11/2015. 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 04/02/2015: Physical deconditioning No date: PMH - PAST MEDICAL HISTORY OF Comment: ovarian cysts No date: PMH - PAST MEDICAL HISTORY OF Comment: bladder tipped, has incontience No date: PMH - PAST MEDICAL HISTORY OF Comment: irregular heart beat 11/20/2020: Smoker Comment: Started age 15 at 1.5 PPD 11/24/2020: Stage 3b chronic kidney disease (HCC) 03/12/2020: Tardive dyskinesia Comment: Ilya Calderón ([facility]) 04/25/2015: Type 2 diabetes mellitus with stage 3b chronic kidney disease (HCC) 04/25/2015: Type 2 diabetes mellitus without complication (HCC) 07/08/2017: Urinary incontinence 10/27/2016: Well adult exam Comment: last done: 06/09/2022 Previous Surgical History PAST SURGICAL HISTORY 05/06/2016: *STRESS TEST PC Comment: WNL 01/14/2014: 2D ECHO (EXEP) Comment: EF=65% Trival [place], TI, PI, LA enlarged. 08/28 and 09/25: CARPAL TUNNEL; Bilateral 2011 haro loraine: COLONOSCOPY FLX DX W/COLLJ SPEC WHEN PFRMD Comment: Colonoscopy, no polyps repeat 10 yrs No date: CRYOCAUTERY OF CERVIX Comment: or twice No date: DILATION & CURETTAGE DX&/THER NONOBSTETRIC Comment: Dilation & curettage : ESOPHAGOGASTRODUODENOSCOPY TRANSORAL DIAGNOSTIC Comment: EGD No date: LIG/TRNSXJ FLP TUBE ABDL/VAG APPR UNI/BI Comment: Tubal ligation 07/2015: PAST SURGICAL HISTORY OF Comment: had left medial elbow sugery but can't explain for what. 2012: PAST SURGICAL HISTORY OF; Right Comment: repair rotator cuff and bone spurs 09/09/2020: PAST SURGICAL HISTORY OF Comment: bladder interstim for overactive bladder per Dr. Alba No date: PAST SURGICAL HISTORY OF Comment: cholecystectomy 08/2020: PT ED UROLOGY Comment: IPG Family History FAMILY HISTORY Problem Relation Age of Onset Hypertension Mother Diabetes Mother other (hysterectomy) Mother fibroids other (hysterectomy) Maternal Grandmother fibroids Heart Son irregular heart beat Cancer Paternal Aunt No Ocular Disease No Family History Patient Allergies ALLERGIES Allergen Reactions Penicillins Hives Tetanus, Diphtheria* Swelling local reaction Aspirin Unknown Benztropine Unknown Diazepam Unknown Imodium [Loperamide] Other: See Comments Chest pain Mellaril [Thioridaz* GI Upset Pneumovax 23 [Pneum* Intolerance Sulfa (Sulfonamide * GI Upset Causes vomiting and rash Tegretol [Carbamaze* GI Upset Current Medications Current Outpatient Medications on File Prior to Visit Medication Sig MEDICAL SUPPLY Please replace pull up every 1.5-2 hrs while awake and 1-3 times a night to reduce risk of skin break down and secondary infections. #240 a month Dx: N39.46 and R15.9 hyoscyamine SR (LEVBID) 0.375 mg 12 hr tablet Take 1 tablet by mouth two times a day. omeprazole (PRILOSEC) 40 mg capsule Take 1 capsule by mouth once daily. LORazepam (ATIVAN) 0.5 mg Take 1 tablet by mouth two times a day as needed (anxiety) for up to 180 days. Per psych: Dr. Barone, not on as of 11/16/2023 traZODone (DESYREL) 100 mg tablet 1 tablet daily at bedtime. Per psych: Dr. Alvarez, not on as of 11/16/2023 cyanocobalamin (VITAMIN B-12) 500 mcg tablet Take 1 tablet by mouth once daily. not on as of 11/16/2023 QUEtiapine ER (SEROQUEL XR) 200 mg 24 hr tablet Take 1 tablet by mouth two times a day. Per psych, Dr. Negrete, not on as of 11/16/2023 citalopram hydrobromide (CELEXA) 10 mg tablet Take 1 tablet by mouth once daily. Per psych, Dr. Negrete, lovastatin 40 mg tablet TAKE 1 TABLET BY MOUTH DAILY AT BEDTIME. FOR CHOLESTEROL. albuterol HFA (VENTOLIN HFA) 90 mcg/actuation inhaler INHALE 2 PUFFS INSTRUCTED EVERY FOUR HOURSAS NEEDED. Dr. Christopher: Pulm furosemide (LASIX) 20 mg tablet Take 1 tablet by mouth two times a day. Per Rajani Fish: cadio spironolactone (ALDACTONE) 25 mg tablet Take 1 tablet by mouth once daily. Per Rajani Fish: cardio melatonin (MELATIN ORAL) Take by mouth as directed. nitroglycerin sublingual (NITROQUICK) 0.4 mg SL tablet Dissolve 1 tablet under the tongue every 5 minutes as needed for chest pain. apixaban (ELIQUIS) 5 mg tab(s) Take 1 tablet by mouth twice daily. Per Cardio, Fish COMPOUNDED PRESCRIPTION Adult diapers size XL Change diaper up to seven times a day. # 210 diapers With 5 refills Dx: R32 and R15.9 omega-3 fatty acids 1,000 mg cap Take 2 capsules by mouth once daily. ipratropium-albuterol (DUONEB) 0.5 mg-3 mg(2.5 mg base)/3 mL nebu Inhale 3 mL as instructed every 3hours as needed for wheezing/shortness of breath. For SOB related to ACUTE RESPIRATORY FAILURE WITHHYPOXIA (J96.01) while awake, Dr. Dallin Christopher: Pulm. not on as of 11/16/2023 rimegepant (NURTEC ODT) 75 mg disintegrating tablet Take 1 tablet by mouth once daily as needed. Per Neuro, not on as of 11/16/2023 amantadine HCl (SYMMETREL) 100 mg capsule Take 1 capsule by mouth two times a day. Per Neuro, Dr. Calderón, not on as of 11/16/2023 fludrocortisone (FLORINEF) 0.1 mg tablet Take 1 tablet by mouth once daily. Per Neuro, Dr. Calderón, not on as of 11/16/2023 No current facility-administered medications on file prior to visit. Social History Social History Tobacco Use Smoking status: Every Day Current packs/day: 2.00 Average packs/day: 2.0 packs/day for 50.0 years (100.0 ttl pk-yrs) Types: Cigarettes Smokeless tobacco: Never Tobacco comments: 1.5 to 2 packs/day Vaping Use Vaping status: Never Used Substance Use Topics Alcohol use: No Drug use: No Review of Symptoms REVIEW OF SYSTEMS GENERAL: No weight loss, malaise or fevers NECK: Negative for lumps, goiter, pain and significant neck swelling RESPIRATORY: Negative for cough, hemoptysis, wheezing, COPD, dyspnea or shortness of breath CARDIOVASCULAR: Negative for chest pain, leg swelling, hypertension, CHF or palpitations GI: No nausea, vomiting, or diarrhea NEURO: No history of headaches, syncope, paralysis, seizures or tremors EXAM: BP 122/72 (BP Site: Right Arm, BP Position: Sitting, BP Cuff Size: Large Adult) Pulse 90 Temp 36.4 C (97.5 F) Resp 20 Ht 159.5 cm (5' 2.8) Wt 121.6 kg (268 lb) LMP 02/22/2006 SpO2 93% BMI 47.78 kg/m General Appearance: Well appearing, alert, in no acute distress, well-hydrated, well nourished. andMorbidly obese. Eyes: Anicteric sclera. Pupils are equally round and reactive to light. Extraocular movements are intact. . Ears: External ears normal, canals clear. Oropharynx: Lips, mucosa, and tongue normal, teeth and gums normal, oropharynx normal. Neck: Supple, no adenopathy; thyroid symmetric, normal size, no bruits. Lungs: Lungs clear to auscultation. No wheezing, rhonchi, rales.. Heart: RRR without murmur, gallop, or rubs. No ectopy. Abdomen: Normal abdominal exam, Abdomen soft, non-tender. Bowel sounds normal. No masses, organomegaly. Extremities: No deformities, edema, skin discoloration, clubbing or cyanosis. Good capillary refill. . Peripheral Pulses: Normal. Neurologic: Gait normal. Reflexes normal and symmetric. Sensation grossly intact.. Feet:Shoes and socks removed, No deformities, ulcers, calluses, normal distal pulses, sensitive to 10 gm monofilament, vibratory perception normal, and nails notable for Crumbly, Deformed, Hypertrophic, or Yellowish Health Maintenance List Anxiety Screening Never done Shingrix Vaccine(1 of 2) Never done Colorectal Cancer Screening due on 09/27/2021 RSV Vaccine(1 - 1-dose 60+ series) Never done Cervical Cancer Screening due on 05/22/2023 Diabetic Foot Exam due on 06/09/2023 Dilated Retinal Exam due on 01/05/2024 Covid-19 Vaccine(2022- season) Never done HbA1C due on 03/29/2024 Urine Albumin:Creatinine Ratio due on 09/26/2024 LDL Cholesterol due on 09/26/2024 Serum Creatinine due on 09/26/2024 Hemoglobin/Hematocrit due on 09/26/2024 Mammogram Screening due on 12/21/2024 Annual PCP Team Chronic Disease Visit due on 03/22/2025 Hepatitis C Screening Completed HIV Screening Completed DTaP,Tdap,Td Vaccine Discontinued Alpha-1 Antitrypsin Deficiency Screening Discontinued Spirometry Discontinued Lung Cancer Screening Discontinued Influenza Vaccine Discontinued Pneumococcal Vaccine Discontinued Data reviewed N/a ASSESSMENT/PLAN: 1. Well adult exam - ICD9: V70.0, ICD10: Z00.00 (primary diagnosis) - Counseled on healthy diet and regular exercise 2. Stage 3b chronic kidney disease (HCC) - ICD9: 585.3, ICD10: N18.32 - eGFR: 35 Due for labs - COMPREHENSIVE METABOLIC PANEL 3. Type 2 diabetes mellitus with stage 3b chronic kidney disease, without long- term current use of insulin (HCC) - ICD9: 250.40, 585.3, ICD10: E11.22, N18.32 - Control undetermined, due for labs - Continue current medications - HEMOGLOBIN A1C - COMPREHENSIVE METABOLIC PANEL - CONSULT TO OPHTHALMOLOGY 4. Gastroesophageal reflux disease without esophagitis - ICD9: 530.81, ICD10: K21.9 stable 5. Chronic obstructive pulmonary disease, unspecified COPD type (HCC) - ICD9: 496, ICD10: J44.9 Cont with pulm 6. Paroxysmal atrial fibrillation (HCC) - ICD9: 427.31, ICD10: I48.0 Cont with cardio 7. Mixed hyperlipidemia - ICD9: 272.2, ICD10: E78.2 - LIPID PANEL, NONFASTING 8. Low vitamin B12 level - ICD9: 790.6, ICD10: R79.89 9. Obesity, Class III, BMI >= 40 - ICD9: 278.01, ICD10: E66.01 Stable - Behavioral intervention 10. Medication management - ICD9: V58.69, ICD10: Z79.899 11. Subacute cough - ICD9: 786.2, ICD10: R05.2 - COVID & INFLUENZA A/B & RSV PCR, ROUTINE Meagan Yusuf PA-C documented in [facility] encounterMer[facility] Telephone encounter Note * Telephone Encounter - Rajani Granger MA - 03/05/2024 10:23 AM EDT Faxed. Rajani Granger MA [facility]08-19-2024 Miscellaneous Notes* Telephone Encounter - Rajani Granger MA - 03/05/2024 10:23 AM EDT Faxed. Rajani Granger MA * Telephone Encounter - Homer Bradford MD - 03/02/2024 4:12 PM EDT Forms ready * Telephone Encounter - Rajani Granger MA - 03/02/2024 12:26 PM EDT Printed forms and O/V note given to provider. Rajani Granger MA * Telephone Encounter - Erwin Harvey RN - 03/02/2024 11:55 AM EDT Kelsy- [facility]- reports they never received the CMN for incontinent supplies back from pcp office. Reports they faxed it to pcp on 02-16-24, and 01-16-24, to [phone]. Asking if pcp office can fax it to fax # [phone] Noted there is a CMN form located in scanned documents on 01-24-24 but it is not filled out or signed. documented in this encounterMer[facility]08-[facility]24 Telephone encounter Note * Telephone Encounter - Homer Bradford MD - 03/02/2024 4:12 PM EDT Forms ready [facility]08-16-2024 Telephone encounter Note* Telephone Encounter - Rajani Granger MA - 03/02/2024 12:26 PM EDT Printed forms and O/V note given to provider. Rajani Granger MA [facility]08-16-2024 Telephone encounter Note* Telephone Encounter - Erwin Harvey RN - 03/02/2024 11:55 AM EDT [facility]els[facility]- [facility]- reports they never received the CMN for incontinent supplies back from pcp office. Reports they faxed it to pcp on 02-16-24, and 01-16-24, to [phone]. Asking if pcp office can fax it to fax # [phone] Noted there is a CMN form located in scanned documents on 01-24-24 but it is not filled out or signed. [facility] Telephone encounter Note* Telephone Encounter - Rajani Granger MA - 02/01/2024 11:21 AM EDT Re Faxed. Rajani Granger MA [facility]07-17-2024 Miscellaneous Notes* Telephone Encounter - Rajani Granger MA - 02/01/2024 11:21 AM EDT Re Faxed. Rajani Granger MA * Telephone Encounter - Ana Cardoza LPN - 02/01/2024 10:47 AM EDT Patricia with [facility] is calling to let you know they did not received the fax sent back to them on 01-18-24 and asking to have this ref-axed to alternate number [phone]. Ana Cardoza LPN documented in this encounterMer[facility]07-[facility]24 Telephone encounter Note * Telephone Encounter - Ana Cardoza LPN - 02/01/2024 10:47 AM EDT Patricia with [facility] is calling to let you know they did not received the fax sent back to them on 01-18-24 and asking to have this ref-axed to alternate number [phone]. Ana Cardoza LPN [facility]-16-2024 Telephone encounter Note* Telephone Encounter - Rajani Granger MA - 01/31/2024 10:14 AM EDT Faxed. Rajani Granger MA [facility] Miscellaneous Notes* Telephone Encounter - Rajani Granger MA - 01/31/2024 10:14 AM EDT Faxed. Rajani Granger MA * Telephone Encounter - Homer Bradford MD - 01/31/2024 8:04 AM EDT Script ready to be faxed to [phone] * Telephone Encounter - Maria Alejandra Braswell RN - 01/30/2024 5:23 PM EDT Patient calling for script for pull ups size 2X be sent to [facility]. Pended from previous order. Maria Alejandra Braswell RN documented in this encounterMer[facility]07-[facility]24 Telephone encounter Note * Telephone Encounter - Homer Bradford MD - 01/31/2024 8:04 AM EDT Script ready to be faxed to [phone] [facility] Telephone encounter Note* Telephone Encounter - Maria Alejandra Braswell RN - 01/30/2024 5:23 PM EDT Patient calling for script for pull ups size 2X be sent to [facility]. Pended from previous order. Maria Alejandra Braswell RN [facility]24 Telephone encounter Note* Telephone Encounter - Rajani Granger MA - 01/18/2024 5:04 PM EDT Received fax from [facility] requesting updated office note regarding the incontinence. Faxed most recent office note. Patient receives her incontinence supplies. Rajani Granger MA' [facility]07-03-2024 Miscellaneous Notes* Telephone Encounter - Rajani Granger MA - 01/18/2024 5:04 PM EDT Received fax from [facility] requesting updated office note regarding the incontinence. Faxed most recent office note. Patient receives her incontinence supplies. Rajani Granger MA' documented in this encounterMer[facility]06-19-2024 Telephone encounter Note * Telephone Encounter - Homer Bradford MD - 01/04/2024 4:50 PM EDT The following approved medication requests have been transmitted electronically. Requested Prescriptions Signed Prescriptions Disp Refills hyoscyamine SR (LEVBID) 0.375 mg 12 hr tablet 180 tablet 0 Sig: Take 1 tablet by mouth two times a day. Authorizing Provider: HOMER BRADFORD omeprazole (PRILOSEC) 40 mg capsule 90 capsule 0 Sig: Take 1 capsule by mouth once daily. Authorizing Provider: HOMER BRADFORD MD [facility]-19[facility]24 Miscellaneous Notes* Telephone Encounter - Homer Bradford MD - 01/04/2024 4:50 PM EDT The following approved medication requests have been transmitted electronically. Requested Prescriptions Signed Prescriptions Disp Refills hyoscyamine SR (LEVBID) 0.375 mg 12 hr tablet 180 tablet 0 Sig: Take 1 tablet by mouth two times a day. Authorizing Provider: HOMER BRADFORD omeprazole (PRILOSEC) 40 mg capsule 90 capsule 0 Sig: Take 1 capsule by mouth once daily. Authorizing Provider: HOMER BRADFORD MD * Telephone Encounter - Mary Ann Rodriguez LPN - 01/04/2024 3:28 PM EDT The patient has been identified by name and date of : Yes, Pharmacy calling for refill Caregiver verified no other encounters exist for this prescription request: Yes Caregiver confirmed with patient/requestor that no other refills are due, in the near future, with this provider at this time: Yes The last office visit in the department: 11/14/2023 Does the patient have a future office visit with this provider/department: Yes 03/22/2024 Requested Prescriptions Pending Prescriptions Disp Refills hyoscyamine SR (LEVBID) 0.375 mg 12 hr tablet 180 tablet 0 Sig: Take 1 tablet by mouth two times a day. omeprazole (PRILOSEC) 40 mg capsule 90 capsule 0 Sig: Take 1 capsule by mouth once daily. Mary Ann Rodriguez LPN January 04, 2024 3:29 PM documented in this encounterMer[facility]06-[facility]-2024 Telephone encounter Note * Telephone Encounter - Mary Ann Rodriguez LPN - 01/04/2024 3:28 PM EDT The patient has been identified by name and date of : Yes, Pharmacy calling for refill Caregiver verified no other encounters exist for this prescription request: Yes Caregiver confirmed with patient/requestor that no other refills are due, in the near future, with this provider at this time: Yes The last office visit in the department: 11/14/2023 Does the patient have a future office visit with this provider/department: Yes 03/22/2024 Requested Prescriptions Pending Prescriptions Disp Refills hyoscyamine SR (LEVBID) 0.375 mg 12 hr tablet 180 tablet 0 Sig: Take 1 tablet by mouth two times a day. omeprazole (PRILOSEC) 40 mg capsule 90 capsule 0 Sig: Take 1 capsule by mouth once daily. Mary Ann Rodriguez LPN January 04, 2024 3:29 PM [facility] Telephone encounter Note* Telephone Encounter - Shanti Monreal RN - 12/26/2023 12:23 PM EDT Patient calls and notified of results. Patient verbalizes understanding. Shanti Monreal RN [facility]06-10-2024 Miscellaneous Notes* Telephone Encounter - Shanti Monreal RN - 12/26/2023 12:23 PM EDT Patient calls and notified of results. Patient verbalizes understanding. Shanti Monreal RN * Telephone Encounter - Rajani Granger MA - 12/26/2023 10:16 AM EDT Left message for patient to contact office. Rajani Granger MA * Telephone Encounter - Hoemr Bradford MD - 12/24/2023 11:33 PM EDT Let patient know her mammogram was normal. documented in this encounterMer[facility]06-10-2024 Telephone encounter Note * Telephone Encounter - Rajani Granger MA - 12/26/2023 10:16 AM EDT Left message for patient to contact office. Rajani Granger MA [facility]06-[facility] Telephone encounter Note* Telephone Encounter - Homer Bradford MD - 12/24/2023 11:33 PM EDT Let patient know her mammogram was normal. [facility]06-07-2024 Note* Letter - Coordinator, Mammography - 12/23/2023 4:55 PM EDT December 26, 2023 PID: [id number] Pernell Rodriguez [address] [place] [address] Dear Ms. Rodriguez, We are pleased to inform you that the results of your recent breast imaging exam on 12/22/2023 are normal. However, because you and/or your physician described a possible abnormality you should consultyour physician or other health care provider for further evaluation if necessary. Early detection of cancer is very important. We also understand recommendations regarding breast cancer screening are controversial. Please discuss with your primary care provider which strategy is best for you and whether a mammogram is right for you. Your imaging studies and report will be kept on file at [facility] as part of your permanent medical record and are available for your continuing care. Thank you for allowing us to help in meeting your health care needs. Sincerely, Dr. Poole Interpreting Radiologist [facility] (Normal-Clinical Evaluation) [facility]06-07-2024 Miscellaneous Notes* Letter - Coordinator, Mammography - 12/23/2023 4:55 PM EDT December 26, 2023 PID: [id number] ePrnell Rodriguez [address] [place] [address] Dear Ms. Rodriguez, We are pleased to inform you that the results of your recent breast imaging exam on 12/22/2023 are normal. However, because you and/or your physician described a possible abnormality you should consultyour physician or other health care provider for further evaluation if necessary. Early detection of cancer is very important. We also understand recommendations regarding breast cancer screening are controversial. Please discuss with your primary care provider which strategy is best for you and whether a mammogram is right for you. Your imaging studies and report will be kept on file at [facility] as part of your permanent medical record and are available for your continuing care. Thank you for allowing us to help in meeting your health care needs. Sincerely, Dr. Poole Interpreting Radiologist [facility] (Normal-Clinical Evaluation) documented in this encounterMer[facility] History of Present illness Narrative* Irasema Gentile Mammo Tech - 12/22/2023 12:30 PM EDT Radiology Service Progress Note PATIENT NAME: Pernell Rodriguez DATE OF SERVICE: December 22, 2023 TIME: 12:53 PM PATIENT IDENTITY VERIFICATION COMPLETED USING TWO (2) IDENTIFIERS: Name and Date of confirmedby patient verbally. FALL SCREENING: Has the patient had 2 falls in the last year or 1 fall with injury or currently using an Ambulatory Assistive Device (Walker, Cane, Wheelchair, Crutches, etc.)? No PATIENT GENDER DATA: Female. status: : No status: NO. PATIENT RELEVANT IMPLANT DATA REVIEWED: Not Applicable PATIENT PRESENTS WITH AN IMPLANTABLE OR ATTACHED SHRIMPING BOAT CAPTAIN: No RADIOLOGY DEPARTMENT: Mammography PERIPHERAL IV DATA: Not applicable SIGNED BY: Emily Hernandez December 22, 2023 12:53 PM documented in this encounterMer[facility] History of Present illness Narrative* Antwan Cope, PT - 11/29/2023 5:05 PM EDT Program_ID:[id number] Access Code: [email or web address] URL: [email or web address] Date: 11-29-2023 Prepared By: Antwan Cope Program Notes Exercises - Supine Shoulder Flexion Extension AAROM with Dowel - 1 x daily - 6 x weekly - 4 sets - 10 reps * Antwan Cope PT - 11/29/2023 4:33 PM EDT Images from the original note were not included. Episode Visit Count: 1 Therapist That Will Accept/Oversee The Plan Of Care: Antwan Cope PT Start of Care Date: 11/29/23 Onset Date: 07/31/23 Plan of Care Certification Date: 11/29/23 Next Certification Due Date: 01/03/24 Patient Identified by Name and Date of : Yes REHABILITATION AND SPORTS THERAPY PHYSICAL THERAPY EVALUATION PLAN OF CARE: Assessment: Pernell Rodriguez presents with chief complaint of L shoulder pain that interferes with sleeping, lifting, reaching overhead . She presents with impairments in ADL's, independence in exercise, overall function, and strength. PROMIS (Patient-Reported Outcomes Measurement Information System) scores were reviewed and identified as a rehabilitation concern. Prognosis for therapy is Good due to: current objective clinical presentation, good overall health status . Pain with resisted ER, IR and scaption. She will benefit from skilled therapy services to meet the goals established for this plan of care as noted below. Goals for Episode of Care: created on 11/29/23 through 02/21/24 Pt will be able to lift a gallon of milk with the LUE in 12 weeks or less with 2/10 pain or less [place] in home exercise program. Perform reaching overhead without pain. Increased strength of LUE to 4+/5 or greater for ease of lifting, reaching, and pushing Patient Goals: Reduce pain Planned Interventions, Frequency, and Duration: Current Frequency: 1x/week Duration: 4 weeks Total Number of Visits Planned: 4 Planned Treatment Interventions: Therapeutic exercise (83380), Neuromuscular re- education (91833), Therapeutic activities (27018), Manual therapy (92992), Self- mcc management (60943), Patient/Family/Caregiver Education PLAN FOR NEXT VISIT: Supine wand flexion AAROM, RTC isometrics. Patient demonstrates good understanding of plan of care and treatment. The above goals and plan of care were discussed and agreed upon by patient/family. SUBJECTIVE: Shoulder pain. Did some lifting of someone she knows and this hurt the shoulder. The cortisone injection she recieved only lasted 24 hours. R RTC repair. The right shoulder is not bothering her. Patient Goals: Reduce pain Functional Limitations: sleeping, lifting, reaching overhead Prior Level of Function: Independent without limitations Intake Information: Prescription present Previous Treatment: None Pain: Pain Pain Level: 0 (9/10 when lifting overhead) Pain Location: Shoulder - Left Description: Sharp PROMIS Scales 11/29/2023 Higher is Better Phys Func - Score 32 (moderate dysfunction) Phys Func - Percentile 4 Self-Eff Symptom - Score 42 (Average) Self-Eff Symptom - Percentile 21 T-scores: mean of general population = 50. 5 points is clinically meaningfully difference Percentiles provide an indication of how the patient's score ranks in relation to the general population. Higher percentile rankings indicate better function/quality of life. 50th percentile is the average of the general population and indicates half of respondents had a worse score. OBJECTIVE MEASURES WITH LEVEL OF FUNCTION: Posture / Alignment Posture: Poor, Forward head, Rounded shoulders, Increased thoracic kyphosis UE AROM R UE AROM: WNL L UE AROM: WNL UE and Cervical Strength Strength Tested: Shoulder All L Shoulder Flexion: 3/5 L Shoulder Internal Rotation: 3+/5 L Shoulder External Rotation: 3+/5 Special Tests - Shoulder Shoulder Special Tests: Neer Neer: Right Positive Education: Education Learning Preferences: Demonstration, Explanation, Performance, Printed Materials Barriers: None Learning/educational needs: Home exercise program, Plan of Care Education Provided: Yes, see treatment interventions for education provided Education Provided To: Patient Education Mode/Type: Demonstration, Explanation/Discussion, Literature/Printed Materials, Performance Response to Education/Teach Back: States/Identifies, Return Demonstration TREATMENT: PT Treatment Interventions: Therapeutic Exercise Evaluation Therapeutic Exercise: 1: Discussed exam findings, purpose of the HEP and the HEP handout was provided to the pt. HEP discussed in detail with how to safely and properly perform each therapeutic exercise. 2: Supine wand AAROM flexion 2 x 10 3: Seated ER iso using wand x 10 holding 3 sec Skilled Intervention: Patient was educated in proper exercise technique and purpose for exercises. Provided written instruction for home exercise program to facilitate proper performance and compliance. Correct performance of therapeutic exercises was facilitated with verbal and visual cuing. Billing * Evaluation Low Complexity: 1 Unit Therapeutic Exercise Treatment Minutes: 23 Skilled Treatment Time Minutes (timed and untimed codes): 38 Total Session Time (minutes): 38 Session Start Time : 1634 Session Stop Time : 1712 Antwan Cope PT documented in this encounterMer[facility] History of Present illness Narrative* Hannah Kwon LPN - 11/25/2023 1:50 PM EDT Scan on 11/24/2023 11:52 AM by Gita Curtis PA-C: Miscellaneous Procedures Scan on 11/24/2023 11:49 AM by Gita Curtis PA-C: Discharge Summary Scan on 11/24/2023 10:36 AM by Gita Curtis PA-C: Chemistry Hannah Kwon LPN documented in this encounterMercy [facility] Procedure [facility]05-01-2024 Telephone encounter Note* Telephone Encounter - Rajani Granger MA - 11/16/2023 11:05 AM EDT Patient notified and voiced understanding. Patient wanted the Mammogram cancelled for today because of her shoulder pain.Rajani MA [facility]05-01-2024 Miscellaneous Notes* Telephone Encounter - Rajani Granger MA - 11/16/2023 11:05 AM EDT Patient notified and voiced understanding. Patient wanted the Mammogram cancelled for today because of her shoulder pain.Rajani MA * Telephone Encounter - Meagan Yusuf PA-C - 11/16/2023 10:29 AM EDT Xray of Left shoulder is normal. Still waiting for the read on R shoulder. Continue with Physical Therapy as instructed by Dr. Godwin. documented in this encounterMer[facility]05-[facility]24 Telephone encounter Note * Telephone Encounter - Meagan Yusuf PA-C - 11/16/2023 10:29 AM EDT Xray of Left shoulder is normal. Still waiting for the read on R shoulder. Continue with Physical Therapy as instructed by Dr. Godwin. [facility]04-30-2024 Telephone encounter Note* Telephone Encounter - Homer Bradford MD - 11/15/2023 4:02 PM EDT Noted. [facility]04-30-2024 Miscellaneous Notes* Telephone Encounter - Homer Bradford MD - 11/15/2023 4:02 PM EDT Noted. * Telephone Encounter - Rajani Granger MA - 11/15/2023 2:22 PM EDT Patient's friend dropped off update medication list. He indicated that Dr. lAba would be contacting the office regarding bladder leakage and patient would be having a procedure and waiting approval for patient to stop the elquis. Patient's elquis is managed by her Packer. Sent fax requesting an update O/V with the procedure they are wanting to do be sent to our office Also notified office that Cardiology manages her Elquis Rajani Granger MA documented in this encounterMer[facility]04-30-2024 Telephone encounter Note * Telephone Encounter - Rajani Granger MA - 11/15/2023 2:22 PM EDT Patient's friend dropped off update medication list. He indicated that Dr. Alba would be contacting the office regarding bladder leakage and patient would be having a procedure and waiting approval for patient to stop the elquis. Patient's elquis is managed by her Packer. Sent fax requesting an update O/V with the procedure they are wanting to do be sent to our office Also notified office that Cardiology manages her Elquis Rajani Granger MA [facility]04-29-2024 History of Present illness Narrative* Homer Bradford MD - 11/14/2023 2:17 PM EDT Chief Complaint Patient presents with: Follow Up HPI Pernell Rodriguez is a 63 year old female who presents here today for Above Complaints. and Chronic Medical Conditions.. Patient with complicated Hx of Hyperlipidemia copd, DM 2, GERD, CAD, Hx of CVA, Hypotension, IBS, CKD, migraines, urinary incontinence, major depression, bipolar disorder, Tardive dyskinesia, obesity, paroxysmal A. Fib, low B12, leg edema, as well as those reviewed and addressed below and in ROS. Patient continues to see , Cardio and Neurology for speciality care. [facility]. Patient' decreased lack of understanding due to her underlying mental health issues negatively affects her care as well as the understanding of the providers she she's and meds she is on. She has also had difficulty good help from her caregivers in the past. Patient was in the office back in September for routine but was also complaining of shoulder pains. Shedid complete her labs and was to f/u with me in a week and No Showed to that appt. Patient having issues wit her bladder stimulator and seeing Urology tomorrow but claims she has hadseveral appts canceled recently. The only Provider she has not gotten back in with is Neuro. She tried contacting Dr. Calderón and has not been able to make contact. Is willing to establish with a new provider. Seen Dr. Godwin last week and had an injection in the left shoulder and sending her to PHYSICAL THERAPY. Patient continues to see: Dr. Bettencourt; renal Dr. Negrete: psych Dr. Dallin Christopher: Lee Goins ASHLEE: cardio Dr. Abla: Urology Patient still has no idea what meds she is on and to be taking. Past medical history, appointments, medications, allergies reviewed. Previous Medical History PAST MEDICAL HISTORY Diagnosis Date ASHD (arteriosclerotic heart disease) 10/25/[address] Goins Bilateral leg edema 04/25/2015 Bipolar affective disorder (HCC) 04/25/[address] Colindres Chest pain 02/14/[address] Jacob in [facility]. Had a normal cardiac CTA in 2009 with no calcium. Chronic back pain greater than 3 months duration 04/02/2015 Chronic insomnia 03/12/2020 Ilya Calderón ([facility]) on melatonin. Chronic obstructive pulmonary disease (HCC) 04/25/2015 Chronic pain 01/14/2014 Constipation 02/12/2014 [place] or callus 11/16/2015 Current use of proton pump inhibitor 10/11/2017 CVA (cerebral infarction) 01/14/2014 Diabetic eye exam (HCC) 01/14/[address] Sanchez last done 03/02/2019 Diabetic foot (HCC) 01/14/[address] Martins Extrapyramidal reaction 01/14/2014 Gastroesophageal reflux disease without esophagitis 04/25/2015 History of CVA (cerebrovascular accident) 04/25/[address] Ilya Calderón ([facility]) Hives 01/14/2014 Hypotension 01/14/2014 Sees Ilya Calderón ([facility]) and has her on fludrocortisone Incontinence of feces 07/08/2017 Irritable bowel syndrome with both constipation and diarrhea 04/28/2017 Low back pain 01/14/2014 Low vitamin B12 level 07/16/2022 Lumbosacral neuritis 04/16/2014 Major depressive disorder, recurrent episode, moderate (HCC) 04/25/2015 On disability Migraine without aura and without status migrainosus, not intractable 04/28/[address] Calderón Mixed hyperlipidemia 01/14/2014 Mixed incontinence urge and stress (male)(female) 07/25/2018 Morbid obesity due to excess calories (HCC) 10/27/2016 Muscle weakness (generalized) 07/25/2018 Myofascial pain 04/16/2014 Nodule of left lung 12/17/2015 CT 09/2018 still stable, no further CT's needed. Seen on CT of abd/pelv 11/2015. CT 06/2016 showed stable left nodule, Stable 09/2016 repeat 10/2017: stable repeat 06/2018 Paroxysmal atrial fibrillation (HCC) 11/23/2021 Perforation of left tympanic membrane 05/21/2019 chronic Physical deconditioning 04/02/2015 PMH - PAST MEDICAL HISTORY OF ovarian cysts PMH - PAST MEDICAL HISTORY OF bladder tipped, has incontience PMH - PAST MEDICAL HISTORY OF irregular heart beat Smoker 11/20/2020 Started age 15 at 1.5 PPD Stage 3b chronic kidney disease (HCC) 11/24/2020 Tardive dyskinesia 03/12/2020 Ilya Calderón ([facility]) Type 2 diabetes mellitus without complication (HCC) 04/25/2015 Urinary incontinence 07/08/2017 Well adult exam 10/27/2016 last done: 06/09/2022 Previous Surgical History PAST SURGICAL HISTORY Procedure Laterality Date *STRESS TEST PC 05/06/2016 WNL 2D ECHO (EXEP) 01/14/2014 EF=65% Trival [place], TI, PI, LA enlarged. CARPAL TUNNEL Bilateral 08/28 and 09/25 COLONOSCOPY FLX DX W/COLLJ SPEC WHEN PFRMD 2011 tahir baron Colonoscopy, no polyps repeat 10 yrs CRYOCAUTERY OF CERVIX or twice DILATION & CURETTAGE DX&/THER NONOBSTETRIC Dilation & curettage ESOPHAGOGASTRODUODENOSCOPY TRANSORAL DIAGNOSTIC EGD LIG/TRNSXJ FLP TUBE ABDL/VAG APPR UNI/BI Tubal ligation PAST SURGICAL HISTORY OF 07/2015 had left medial elbow sugery but can't explain for what. PAST SURGICAL HISTORY OF Right 2012 repair rotator cuff and bone spurs PAST SURGICAL HISTORY OF 09/09/2020 bladder interstim for overactive bladder per Dr. Alba PAST SURGICAL HISTORY OF cholecystectomy PT ED UROLOGY 08/2020 IPG Family History FAMILY HISTORY Problem Relation Age of Onset Hypertension Mother Diabetes Mother other (hysterectomy) Mother fibroids other (hysterectomy) Maternal Grandmother fibroids Heart Son irregular heart beat Cancer Paternal Aunt No Ocular Disease No Family History Patient Allergies ALLERGIES Allergen Reactions Penicillins Hives Tetanus, Diphtheria* Swelling local reaction Aspirin Unknown Benztropine Unknown Diazepam Unknown Imodium [Loperamide] Other: See Comments Chest pain Mellaril [Thioridaz* GI Upset Pneumovax 23 [Pneum* Intolerance Sulfa (Sulfonamide * GI Upset Causes vomiting and rash Tegretol [Carbamaze* GI Upset Current Medications Current Outpatient Medications on File Prior to Visit Medication Sig melatonin (MELATIN ORAL) Take by mouth as directed. nitroglycerin sublingual (NITROQUICK) 0.4 mg SL tablet Dissolve 1 tablet under the tongue every 5 minutes as needed for chest pain. lovastatin (MEVACOR) 20 mg tablet TAKE 1 TABLET BY MOUTH DAILY AT BEDTIME. FOR CHOLESTEROL. albuterol HFA (VENTOLIN HFA) 90 mcg/actuation inhaler INHALE 2 PUFFS INSTRUCTED EVERY FOUR HOURSAS NEEDED cyanocobalamin (VITAMIN B-12) 500 mcg tablet Take 1 tablet by mouth once daily. MEDICAL SUPPLY Please replace pull up every 1.5-2 hrs while awake and 1-3 times a night to reduce risk of skin break down and secondary infections. #240 a month Dx: N39.46 and R15.9 traZODone (DESYREL) 100 mg tablet daily at bedtime. Docosahexanoic Acid-Eicosapent (FISH OIL) 120-180 mg capsule Take 2 g by mouth once daily. COMPOUNDED PRESCRIPTION Adult diapers size XL Change diaper up to seven times a day. # 210 diapers With 5 refills Dx: R32 and R15.9 omega-3 fatty acids 1,000 mg cap Take 2 capsules by mouth once daily. LORazepam (ATIVAN) 0.5 mg tab Take 1 tablet by mouth twice daily as needed (anxiety). furosemide (LASIX) 20 mg tablet Take 1 tablet by mouth two times a day. Per Rajani Goins (Patient not taking: Reported on 11/11/2023) spironolactone (ALDACTONE) 25 mg tablet Take 1 tablet by mouth once daily. Per Rajani Goins (Patient not taking: Reported on 11/11/2023) hyoscyamine SR (LEVBID) 0.375 mg 12 hr tablet Take 1 tablet by mouth two times a day. (Patient not taking: Reported on 11/11/2023) omeprazole (PRILOSEC) 40 mg capsule Take 1 capsule by mouth once daily. (Patient not taking: Reported on 11/11/2023) ipratropium-albuterol (DUONEB) 0.5 mg-3 mg(2.5 mg base)/3 mL nebu Inhale 3 mL as instructed every 3hours as needed for wheezing/shortness of breath. For SOB related to ACUTE RESPIRATORY FAILURE WITHHYPOXIA (J96.01) while awake rimegepant (NURTEC ODT) 75 mg disintegrating tablet Take 1 tablet by mouth once daily as needed. (Patient not taking: Reported on 09/27/2023) citalopram hydrobromide (CELEXA) 10 mg tablet Take 1 tablet by mouth once daily. Per psych, Dr. Negrete (Patient not taking: Reported on 11/14/2023) amantadine HCl (SYMMETREL) 100 mg capsule Take 1 capsule by mouth twice daily. Per NeuroDr. Calderón (Patient not taking: Reported on 09/27/2023) apixaban (ELIQUIS) 5 mg tab(s) Take 1 tablet by mouth twice daily. Per Cardio, Fish fludrocortisone (FLORINEF) 0.1 mg tablet Take 1 tablet by mouth once daily. Per NeuroDr. Calderón (Patient not taking: Reported on 09/27/2023) QUEtiapine ER (SEROQUEL XR) 200 mg 24 hr tablet Take 1 tablet by mouth twice daily. Per psych, Dr. Negrete (Patient not taking: Reported on 11/11/2023) No current facility-administered medications on file prior to visit. Social History Social History Tobacco Use Smoking status: Every Day Packs/day: 2.00 Years: 50.00 Additional pack years: 0.00 Total pack years: 100.00 Types: Cigarettes Smokeless tobacco: Never Tobacco comments: 1.5 to 2 packs/day Vaping Use Vaping Use: Never used Substance Use Topics Alcohol use: No Drug use: No Review of Symptoms REVIEW OF SYSTEMS GENERAL: No weight loss, malaise or fevers NECK: Negative for lumps, goiter, pain and significant neck swelling RESPIRATORY: Negative for cough, hemoptysis, increased wheezing, COPD, dyspnea or shortness of breath. CARDIOVASCULAR: Negative for chest pain, increased leg swelling, hypertension, CHF or palpitations GI: No nausea, vomiting, or diarrhea and No heartburn or reflux symptoms ENDOCRINE: Negative for symptoms of low BS's. Has not checked any blood sugars in the last 8 months. NEURO: No history of headaches, syncope, paralysis, seizures or tremors. Has her dyskinesia symptoms. EXAM: BP 104/64 (BP Site: Right Arm, BP Position: Sitting, BP Cuff Size: Regular Adult) Pulse 70 Resp16 Wt 121.6 kg (268 lb) LMP 02/22/2006 BMI 46.73 kg/m Last 10 Encounter Wt Readings: Date: Wt: 11/14/2023 121.6 kg (268 lb) 09/27/2023 120.7 kg (266 lb) 03/11/2023 122.5 kg (270 lb) 02/28/2023 122.5 kg (270 lb) 10/04/2022 123.4 kg (272 lb) 09/15/2022 124.6 kg (274 lb 12.8 oz) 07/15/2022 119.3 kg (263 lb) 06/09/2022 119.3 kg (263 lb) 11/27/2021 106.1 kg (233 lb 12.8 oz) 10/14/2021 108.7 kg (239 lb 9.6 oz) General Appearance: Well appearing, alert, in no acute distress, well-hydrated, well nourished. andMorbidly obese. Eyes: Anicteric sclera. Pupils are equally round and reactive to light. Extraocular movements are intact. . Neck: Supple, no adenopathy; thyroid symmetric, normal size, no bruits. Lungs: Lungs clear to auscultation. No wheezing, rhonchi, rales.. Heart: RRR without murmur, gallop, or rubs. No ectopy. Abdomen: Normal abdominal exam, Abdomen soft, non-tender. Bowel sounds normal. No masses, organomegaly. Extremities: No deformities,skin discoloration, Good capillary refill. Mild 1+ pitting edema in theleft lower extremity.. Peripheral Pulses: Normal. Neurologic: Gait normal. Sensation to light touch and crainal nerves 2-12 intact.. Health Maintenance List Shingrix Vaccine(1 of 2) Never done Colorectal Cancer Screening due on 09/27/2021 RSV Vaccine(1 - 1-dose 60+ series) Never done Mammogram Screening due on 06/24/2022 Covid-19 Vaccine(2022- season) Never done Pap Testing due on 05/22/2023 HPV Testing due on 05/22/2023 Diabetic Foot Exam due on 06/09/2023 Dilated Retinal Exam due on 01/05/2024 HbA1C due on 03/29/2024 Urine Albumin:Creatinine Ratio due on 09/26/2024 LDL Cholesterol due on 09/26/2024 Annual PCP Team Chronic Disease Visit due on 09/26/2024 Serum Creatinine due on 09/26/2024 Hemoglobin/Hematocrit due on 09/26/2024 Hepatitis C Screening Completed HIV Screening Completed DTaP,Tdap,Td Vaccine Discontinued Alpha-1 Antitrypsin Deficiency Screening Discontinued Spirometry Discontinued Lung Cancer Screening Discontinued Influenza Vaccine Discontinued Pneumococcal Vaccine Discontinued Data reviewed Latest Ref Rng 02/28/2023 05/16/2023 09/27/2023 WBC 3.70 - 11.00 k/uL 7.64 RBC 3.90 - 5.20 m/uL 4.77 Hemoglobin 11.5 - 15.5 g/dL 15.2 Hematocrit 36.0 - 46.0 % 46.7 (H) MCV 80.0 - 100.0 fL 97.9 MCH 26.0 - 34.0 pg 31.9 MCHC 30.5 - 36.0 g/dL 32.5 RDW-CV 11.5 - 15.0 % 13.1 Platelet Count 150 - 400 k/uL 276 MPV 9.0 - 12.7 fL 11.0 Neut% % 55.2 Abs Neut (ANC) 1.45 - 7.50 k/uL 4.22 Lymph% % 30.9 Abs Lymph 1.00 - 4.00 k/uL 2.36 Price% % 10.7 Abs Price <0.87 k/uL 0.82 Eosin% % 2.5 Abs Eosin <0.46 k/uL 0.19 Baso% % 0.4 Abs Baso <0.11 k/uL 0.03 Immature Gran % % 0.3 IMMATURE GRANS (ABS) <0.10 k/uL <0.03 NRBC /100 WBC 0.0 Absolute nRBC <0.01 k/uL <0.01 DTYPE Auto Color Yellow Yellow Clarity Clear Clear Glucose, Urine Negative Negative Bilirubin, Urine Negative Negative Ketones, Urine Negative Negative Specific Boutte, Ur 1.005 - 1.030 1.017 Hemoglobin/Blood,Ur Negative Negative pH, Urine <8.5 5.5 Protein, Urine Negative Negative Urobilinogen 0.2-1.0 EU/dL 1.0 EU/dL Nitrites Negative Negative Leukest Negative 1+ ! WBC, Urine 0-5 /HPF 11-20 /HPF ! RBC, Urine 0-2 /HPF 3-5 /HPF ! Bacteria uL Negative uL 2,677.7 (H) Epithelial Cells /HPF Few Hyaline Cast 0 /LPF 1-3 /LPF ! Calcium Oxalate Crystals None Seen /HPF Few ! Protein, Total 6.3 - 8.0 g/dL 6.8 6.8 Albumin 3.9 - 4.9 g/dL 3.9 4.0 Calcium 8.5 - 10.2 mg/dL 9.2 9.3 9.2 Bilirubin, Total 0.2 - 1.3 mg/dL 0.3 0.4 Alkaline Phosphatase 34 - 123 U/L 67 67 AST 13 - 35 U/L 23 25 ALT 7 - 38 U/L 17 19 Glucose 74 - 99 mg/dL 100 (H) 117 (H) 99 BUN 7 - 21 mg/dL 13 15 18 Creatinine 0.58 - 0.96 mg/dL 1.63 (H) 1.67 (H) 1.66 (H) Sodium 136 - 144 mmol/L 143 141 141 Potassium 3.7 - 5.1 mmol/L 4.4 3.6 (L) 4.1 Chloride 97 - 105 mmol/L 105 105 103 CO2 22 - 30 mmol/L 25 21 (L) 27 Anion Gap 9 - 18 mmol/L 13 15 11 eGFR >=60 mL/min/1.73m 36 (L) 35 (L) 35 (L) Total Cholesterol, Nonfasting <200 mg/dL 149 161 Triglycerides, Nonfasting <150 mg/dL 135 152 (H) HDL Cholesterol, Nonfasting >39 mg/dL 49 44 LDL Cholesterol, Nonfasting <100 mg/dL 73 87 Non HDL Cholesterol, Nonfasting <130 mg/dL 100 117 VLDL Cholesterol, Nonfasting <30 mg/dL 27 30 (H) Total Chol/HDL Ratio, Nonfasting <5.10 mg/dL 3.04 3.66 LDL/HDL Ratio, Nonfasting <2.54 mg/dL 1.49 1.98 Creatinine, Ur Random (UCRR) 20.0 - 300.0 mg/dL 165.2 Albumin, Urine Random mg/L <12.0 Albumin/Creat Ratio <30 mg/g <7 Hemoglobin A1C 4.3 - 5.6 % 5.9 (H) 6.2 (H) Estimated Average Glucose mg/dL 123 131 TSH 0.270 - 4.200 mIU/L 1.750 A/P ASSESSMENT/PLAN: 1. Type 2 diabetes mellitus with stage 3b chronic kidney disease, without long- term current use of insulin ([facility]) - ICD9: 250.40, 585.3, ICD10: E11.22, N18.32 (primary diagnosis) - Controlled - Continue current medications - Counseled on healthy diet and regular exercise - Discussed need for and benefit of weight loss. BMI 46.73 kg/(m^2) - controlled with diet. - eGFR: 35 Stable - Counseled on avoiding NSAIDs, adequate hydration - patient to cont management with Renal 2. Diabetic eye exam (HCC) - ICD9: V72.0, 250.00, ICD10: Z01.00, E11.9 - need updated report. 3. Mixed hyperlipidemia - ICD9: 272.2, ICD10: E78.2 - Uncontrolled - Increase lovastatin (Mevacor) to 40 mg a day - Counseled on healthy diet and regular exercise 4. Hypotension, unspecified hypotension type - ICD9: 458.9, ICD10: I95.9 - CONSULT TO NEUROLOGY: used to have her on Florinef 0.1 mg a day. 5. ASHD (arteriosclerotic heart disease) - ICD9: 414.00, ICD10: I25.10 - clinically stable and managed per Cardio 6. Paroxysmal atrial fibrillation (HCC) - ICD9: 427.31, ICD10: I48.0 - as per #5 7. Bilateral leg edema - ICD9: 782.3, ICD10: R60.0 - slight on exam on the left. Patient to check if still taking the lasix and Aldactone as per cardio and if not contact them. 8. Gastroesophageal reflux disease without esophagitis - ICD9: 530.81, ICD10: K21.9 - Continue treatment with Prilosec 40 mg every day. 9. History of CVA (cerebrovascular accident) - ICD9: V12.54, ICD10: Z86.73 - CONSULT TO NEUROLOGY 10. Chronic obstructive pulmonary disease, unspecified COPD type (HCC) - ICD9: 496, ICD10: J44.9 - clinically stable and managed per Pulm 11. Stage 3b chronic kidney disease (HCC) - ICD9: 585.3, ICD10: N18.32 - eGFR: 35 Stable - management per renal 12. Migraine without aura and without status migrainosus, not intractable - ICD9: 346.10, ICD10: G43.009 - CONSULT TO NEUROLOGY: used to be on rimegepant 75 mg a day 13. Bipolar affective disorder, remission status unspecified (HCC) - ICD9: 296.80, ICD10: F31.9 - stable and seeing Psych to manage her meds 14. Major depressive disorder, recurrent episode, moderate (HCC) - ICD9: 296.32, ICD10: F33.1 - as per #13 15. Extrapyramidal reaction - ICD9: 333.90, ICD10: G25.9 - CONSULT TO NEUROLOGY: had her on Amantadine 100 mg a day 16. Tardive dyskinesia - ICD9: 333.85, ICD10: G24.01 - CONSULT TO NEUROLOGY: as per #16 17. Chronic insomnia - ICD9: 780.52, ICD10: F51.04 - as per psych, on trazadone 18. Smoker - ICD9: 305.1, ICD10: F17.200 - Cessation encouraged. - Counseling was given focusing on the harmful effects of this addiction especially given the patient's medical condition(s) which will be worsened because of the chemicals in tobacco. 19. Low vitamin B12 level - ICD9: 790.6, ICD10: R79.89 - cont OTC replacement 20. Mixed incontinence urge and stress (male)(female) - ICD9: 788.33, ICD10: N39.46 - seeing Urology tomorrow. 21. Diabetic foot (HCC) - ICD9: 250.80, ICD10: E11.8 - needes to see Dr. Pool 22. Obesity, Class III, BMI >= 40 - ICD9: 278.01, ICD10: E66.01 Weight decreasing - Behavioral intervention 23. Encounter for screening mammogram for breast cancer - ICD9: V76.12, ICD10: Z12.31 Check - JACI SCREENING F/u 4 months extensive I spent a total of 56 minutes on the date of the service which included preparing to see the patient, [id number] patient care, completing clinical documentation, performing a medically appropriate examination, counseling and educating the patient/family/caregiver and ordering medications, tests, or procedures. Homer Bradford MD * Rajani Granger MA - 11/14/2023 1:54 PM EDT Duplicate entry documented in this encounterMer[facility]-26-[facility] History of Present illness Narrative* Jarod Godwin V, DO - 11/11/2023 2:23 PM EDTAssociated Order(s): Large Joint Arthro/Inj: L shoulder joint Post-Procedure Diagnose(s): Rotator cuff disorder, left Images from the original note were not included. SERVICE DATE: November 11, 2023 PCP: Homer Bradford MD Subjective Patient ID: Pernell is a 63 year old female. Chief Complaint: Patient presents with: bilateral shoulder pain REF: Jami Yusuf PAIN EVALUATION 11/11/2023 1351 Pain Level: 9 Pain Location: Other: See Comment bilateral shoulders Description: Dull Duration Amount of Time: 3 Duration Units: Months Frequency: Continuous Intervention/Comfort measure: Cold LI Pernell is a 63-year-old female who presents today for bilateral shoulder pain, left greater than right. States the pain started about 3 months ago without specific injury or mechanism. She has pain over the lateral shoulder that is worse when she tries to lift her arm or externally rotate. She denies any numbness or tingling in her arm or hand. She states she has some right shoulder pain but it is not as bad as the left side. She had a right rotator cuff repair 12 years ago. Review of Systems ACTIVE PROBLEM LIST Hives Extrapyramidal Reaction Hypotension Diabetic Eye Exam (Hcc) Chronic Pain Diabetic Foot (Hcc) Low Back Pain Mixed Hyperlipidemia Chest Pain Lumbosacral Neuritis Myofascial Pain Hypokalemia Ashd (Arteriosclerotic Heart Disease) Physical Deconditioning Chronic Back Pain Greater Than 3 Months Duration Type 2 Diabetes Mellitus Without Complication (Hcc) Gastroesophageal Reflux Disease Without Esophagitis Chronic Obstructive Pulmonary Disease (Hcc) History of Cva (Cerebrovascular Accident) Bilateral Leg Edema Bipolar Affective Disorder (Hcc) Major Depressive Disorder, Recurrent Episode, Moderate (Hcc) [place] Or Callus Nodule of Left Lung Morbid Obesity Due to Excess Calories (Hcc) Well Adult Exam Colon Cancer Screening Migraine Without Aura and Without Status Migrainosus, Not Intractable Irritable Bowel Syndrome With Both Constipation and Diarrhea Incontinence of Feces Encounter for Gynecological Examination Without Abnormal Finding Muscle Weakness (Generalized) Mixed Incontinence Urge and Stress (Male)(female) Perforation of Left Tympanic Membrane Tardive Dyskinesia Chronic Insomnia Medication Management Smoker Stage 3b Chronic Kidney Disease (Hcc) Left Hip Pain Trochanteric Bursitis of Left Hip Paroxysmal Atrial Fibrillation (Hcc) Leg Cramps Low Vitamin B12 Level Obesity, Class III, BMI >= 40 PAST MEDICAL HISTORY Diagnosis Date ASHD (arteriosclerotic heart disease) 10/25/[address] Goins Bilateral leg edema 04/25/2015 Bipolar affective disorder (HCC) 04/25/[address] Colindres Chest pain 02/14/[address] Jacob in [facility]. Had a normal cardiac CTA in 2009 with no calcium. Chronic back pain greater than 3 months duration 04/02/2015 Chronic insomnia 03/12/2020 Ilya Calderón ([facility]) on melatonin. Chronic obstructive pulmonary disease (HCC) 04/25/2015 Chronic pain 01/14/2014 Constipation 02/12/2014 [place] or callus 11/16/2015 Current use of proton pump inhibitor 10/11/2017 CVA (cerebral infarction) 01/14/2014 Diabetic eye exam (HCC) 01/14/[address] Sanchez last done 03/02/2019 Diabetic foot (HCC) 01/14/[address] Martins Extrapyramidal reaction 01/14/2014 Gastroesophageal reflux disease without esophagitis 04/25/2015 History of CVA (cerebrovascular accident) 04/25/[address] Ilya Calderón ([facility]) Hives 01/14/2014 Hypotension 01/14/2014 Sees Ilya Calderón ([facility]) and has her on fludrocortisone Incontinence of feces 07/08/2017 Irritable bowel syndrome with both constipation and diarrhea 04/28/2017 Low back pain 01/14/2014 Low vitamin B12 level 07/16/2022 Lumbosacral neuritis 04/16/2014 Major depressive disorder, recurrent episode, moderate ([facility]) 04/25/2015 On disability Migraine without aura and without status migrainosus, not intractable 04/28/[address] Calderón Mixed hyperlipidemia 01/14/2014 Mixed incontinence urge and stress (male)(female) 07/25/2018 Morbid obesity due to excess calories ([facility]) 10/27/2016 Muscle weakness (generalized) 07/25/2018 Myofascial pain 04/16/2014 Nodule of left lung 12/17/2015 CT 09/2018 still stable, no further CT's needed. Seen on CT of abd/pelv 11/2015. CT 06/2016 showed stable left nodule, Stable 09/2016 repeat 10/2017: stable repeat 06/2018 Paroxysmal atrial fibrillation (HCC) 11/23/2021 Perforation of left tympanic membrane 05/21/2019 chronic Physical deconditioning 04/02/2015 PMH - PAST MEDICAL HISTORY OF ovarian cysts PMH - PAST MEDICAL HISTORY OF bladder tipped, has incontience PMH - PAST MEDICAL HISTORY OF irregular heart beat Smoker 11/20/2020 Started age 15 at 1.5 PPD Stage 3b chronic kidney disease (HCC) 11/24/2020 Tardive dyskinesia 03/12/2020 Ilya Calderón ([facility]) Type 2 diabetes mellitus without complication ([facility]) 04/25/2015 Urinary incontinence 07/08/2017 Well adult exam 10/27/2016 last done: 06/09/2022 PAST SURGICAL HISTORY Procedure Laterality Date *STRESS TEST PC 05/06/2016 WNL 2D ECHO (EXEP) 01/14/2014 EF=65% Trival [place], TI, PI, LA enlarged. CARPAL TUNNEL Bilateral 08/28 and 09/25 COLONOSCOPY FLX DX W/COLLJ SPEC WHEN PFRMD 2011 haro loraine Colonoscopy, no polyps repeat 10 yrs CRYOCAUTERY OF CERVIX or twice DILATION & CURETTAGE DX&/THER NONOBSTETRIC Dilation & curettage ESOPHAGOGASTRODUODENOSCOPY TRANSORAL DIAGNOSTIC EGD LIG/TRNSXJ FLP TUBE ABDL/VAG APPR UNI/BI Tubal ligation PAST SURGICAL HISTORY OF 07/2015 had left medial elbow sugery but can't explain for what. PAST SURGICAL HISTORY OF Right 2011 repair rotator cuff and bone spurs PAST SURGICAL HISTORY OF 09/09/2020 bladder interstim for overactive bladder per Dr. Alba PAST SURGICAL HISTORY OF cholecystectomy PT ED UROLOGY 08/2020 IPG FAMILY HISTORY Problem Relation Age of Onset Hypertension Mother Diabetes Mother other (hysterectomy) Mother fibroids other (hysterectomy) Maternal Grandmother fibroids Heart Son irregular heart beat Cancer Paternal Aunt No Ocular Disease No Family History Social History Tobacco Use Smoking status: Every Day Packs/day: 2.00 Years: 50.00 Additional pack years: 0.00 Total pack years: 100.00 Types: Cigarettes Smokeless tobacco: Never Tobacco comments: 1.5 to 2 packs/day Vaping Use Vaping Use: Never used Substance Use Topics Alcohol use: No Drug use: No ALLERGIES Allergen Reactions Penicillins Hives Tetanus, Diphtheria* Swelling local reaction Aspirin Unknown Benztropine Unknown Diazepam Unknown Imodium [Loperamide] Other: See Comments Chest pain Mellaril [Thioridaz* GI Upset Pneumovax 23 [Pneum* Intolerance Sulfa (Sulfonamide * GI Upset Causes vomiting and rash Tegretol [Carbamaze* GI Upset MEDICATIONS: melatonin (MELATIN ORAL) Take by mouth as directed. lovastatin (MEVACOR) 20 mg tablet TAKE 1 TABLET BY MOUTH DAILY AT BEDTIME. FOR CHOLESTEROL. ipratropium-albuterol (DUONEB) 0.5 mg-3 mg(2.5 mg base)/3 mL nebu Inhale 3 mL as instructed every 3hours as needed for wheezing/shortness of breath. For SOB related to ACUTE RESPIRATORY FAILURE WITHHYPOXIA (J96.01) while awake albuterol HFA (VENTOLIN HFA) 90 mcg/actuation inhaler INHALE 2 PUFFS INSTRUCTED EVERY FOUR HOURSAS NEEDED cyanocobalamin (VITAMIN B-12) 500 mcg tablet Take 1 tablet by mouth once daily. traZODone (DESYREL) 100 mg tablet daily at bedtime. Docosahexanoic Acid-Eicosapent (FISH OIL) 120-180 mg capsule Take 2 g by mouth once daily. LORazepam (ATIVAN) 0.5 mg tab Take 1 tablet by mouth twice daily as needed (anxiety). nitroglycerin sublingual (NITROQUICK) 0.4 mg SL tablet Dissolve 1 tablet under the tongue every 5 minutes as needed for chest pain. furosemide (LASIX) 20 mg tablet Take 1 tablet by mouth two times a day. Per Rajani Goins (Patient not taking: Reported on 11/11/2023) spironolactone (ALDACTONE) 25 mg tablet Take 1 tablet by mouth once daily. Per Rajani Goins (Patient not taking: Reported on 11/11/2023) hyoscyamine SR (LEVBID) 0.375 mg 12 hr tablet Take 1 tablet by mouth two times a day. (Patient not taking: Reported on 11/11/2023) omeprazole (PRILOSEC) 40 mg capsule Take 1 capsule by mouth once daily. (Patient not taking: Reported on 11/11/2023) rimegepant (NURTEC ODT) 75 mg disintegrating tablet Take 1 tablet by mouth once daily as needed. (Patient not taking: Reported on 09/27/2023) MEDICAL SUPPLY Please replace pull up every 1.5-2 hrs while awake and 1-3 times a night to reduce risk of skin break down and secondary infections. #240 a month Dx: N39.46 and R15.9 citalopram hydrobromide (CELEXA) 10 mg tablet Take 1 tablet by mouth once daily. Per psych, Dr. Negrete (Patient taking differently: Take 10 mg by mouth once daily. Per psych, Dr. Negrete) amantadine HCl (SYMMETREL) 100 mg capsule Take 1 capsule by mouth twice daily. Per Neuro, Dr. Calderón (Patient not taking: Reported on 09/27/2023) apixaban (ELIQUIS) 5 mg tab(s) Take 1 tablet by mouth twice daily. Per Cardio, Fish fludrocortisone (FLORINEF) 0.1 mg tablet Take 1 tablet by mouth once daily. Per Neuro, Dr. Calderón (Patient not taking: Reported on 09/27/2023) QUEtiapine ER (SEROQUEL XR) 200 mg 24 hr tablet Take 1 tablet by mouth twice daily. Per psych, Dr. Negrete (Patient not taking: Reported on 11/11/2023) COMPOUNDED PRESCRIPTION Adult diapers size XL Change diaper up to seven times a day. # 210 diapers With 5 refills Dx: R32 and R15.9 omega-3 fatty acids 1,000 mg cap Take 2 capsules by mouth once daily. Allergies, medications, past surgical history, family history and past medical history were reviewed per this encounter. Objective Ortho Exam 63-year-old female in no acute distress. Evaluation of the right shoulder shows full range of motion with no restriction. Rotator cuff strength is 5 out of 5. Tenderness noted over the lateral shoulder with palpation. Evaluation of the left shoulder shows range of motion restriction with abduction at 100 degrees external rotation at 30 degrees upper arm test is positive for pain. Empty can test is positive for pain. [place] test is positive for pain. Assessment/Plan ASSESSMENT Diagnosis (M67.912) Rotator cuff disorder, left (primary encounter diagnosis) Plan: CONSULT TO PHYSICAL THERAPY (E66.01) Obesity, Class III, BMI >= 40 Office Visit on 11/11/23 CONSULT TO PHYSICAL THERAPY PLAN Options for treatment discussed. Patient has limited ability for NSAID use due to chronic kidney disease and other comorbid conditions. Recommend physical therapy to evaluate and treat bilateral shoulders for rotator cuff strengthening and range of motion We discussed corticosteroid injection to the left shoulder today. Her last A1c was 6.2. We discussed that it may cause a slight increase in her blood sugar for a few weeks after the injection. X-ray of bilateral shoulders obtained today Large Joint Arthro/Inj: L shoulder joint Informed Consent Consent Obtained: Verbal [place] Protocol A moment to CARE was completed. SIGN IN TIME OUT 11/11/2023 2:25 PM The procedure site was prepped in the usual sterile fashion. Site: L shoulder joint Medications: 6 mg betamethasone acetate-betamethasone sodium phosphate 6 mg/mL Anesthetics: 4 mL lidocaine (PF) 10 mg/mL (1 %); 4 mL BUPivacaine (PF) 0.5 % (5 mg/mL) Outcome: Post-injection instructions were reviewed with the patient and the patient voiced understanding of these instructions. FOLLOW-UP: No follow-ups on file. SIGNATURE: Jarod Godwin DO PATIENT NAME: Pernell Rodriguez DATE: November 11, 2023 TIME: 2:23 PM * Chelsie Miles MA - 11/11/2023 1:57 PM EDT AMB ROOMING INTAKE FLOWSHEET DATA Pain Pain Level: 9 Pain Location: Other: See Comment (bilateral shoulders) Description: Dull Duration Amount of Time: 3 Duration Units: Months Frequency: Continuous Intervention/Comfort measure: Cold documented in this encounterMer[facility]04-26-2024 History of Present illness Narrative* Thea Sen RT(R) - 11/11/2023 1:30 PM EDT Radiology Service Progress Note PATIENT NAME: Pernell Rodriguez DATE OF SERVICE: November 11, 2023 TIME: 1:31 PM PATIENT IDENTITY VERIFICATION COMPLETED USING TWO (2) IDENTIFIERS: Name and Date of confirmedby patient verbally. FALL SCREENING: Has the patient had 2 falls in the last year or 1 fall with injury or currently using an Ambulatory Assistive Device (Walker, Cane, Wheelchair, Crutches, etc.)? No PATIENT GENDER DATA: Female. status: : No status: NO. 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 Pt voices understanding. She states she can never get through and get an appointment with her neurologist. I told her I would try calling them again to set up appointment, Pt verbalized understanding. Reminded Pt of appointment with Dr Bradford on 10/05/23. Caterina Salazar RN * Telephone Encounter - Homer Bradford MD - 09/30/2023 8:56 AM EDT Let patient know based on her meds list from [place] she is not on the Amantadine for her tardive dyskinesia, Florinef for her low blood pressure and Nurtec ODT for her migraines. These were all being prescribed by her neurologist Dr. Calderón. We did reach out to his office and she has not been to see him since 09/2022. Needs to get back in to address these issues. documented in this encounterMer[facility]03-14-2024 Miscellaneous Notes* Telephone Encounter - Caterina Salazar RN - 09/29/2023 11:29 AM EDT Pt called and is notified of providers results and instructions. Pt voices understanding. Pt statesthe bladder stimulator in her R buttock isn't working and she needs to get it removed, she reports she is still urinating down her leg. I told her she would need to get a hold of Dr Alba's office about the bladder stimulator. Caterina Salazar RN * Telephone Encounter - Meagan Yusuf PA-C - 09/29/2023 11:17 AM EDT Noted. When she comes to see dr. Bradford, he will review. Meagan Yusuf PA-C * Telephone Encounter - Shanti Monreal RN - 09/29/2023 10:23 AM EDT Patient returns call and provider message reviewed. Patient reports lower back pain and urinary leakage/incontinence per her usual for the past several years but no frequency, urgency, burning, pain with urination, blood in urine, or fever. Shanti Monreal RN * Telephone Encounter - Rajani Granger MA - 09/28/2023 10:00 AM EDT Left message for patient to contact office. Rajani Granger MA * Telephone Encounter - Meagan Yusuf PA-C - 09/28/2023 8:14 AM EDT Labs will be discussed at visit next week. But see if any s/s of UTI Meagan Yusuf PA-C documented in this encounterMercy Health [facility]03-12-2024 Miscellaneous Notes* Addendum Note - Meagan Yusuf PA-C - 09/27/2023 2:33 PM EDTAddended by: MEAGAN BROWNE on: 09/27/2023 02:33 PM Modules accepted: Orders documented in this encounterMercy [facility]03-12-2024 History of Present illness Narrative* Meagan Yusuf PA-C - 09/27/2023 1:23 PM EDT Chief Complaint Patient presents with: Pain (Shoulder Pain): bilateral HPI Pernell Rodriguez is a 63 year old female who presents here today for Above Complaints.. Patient reports multiple concerns. Bilateral shoulder pain. Patient states she's been struggling with pain for 3-4 months. Seems to beworsening. Hx of R shoulder surgery in 2011. Denies n/t. States pain comes and goes on it's own. Doesn't seem to be worsened by specific movements. Patient states she notes her sides cave in but then come back out. States it depends on how she is sitting. Concerned with continued leg swelling. 4. Patient unsure of which meds she is taking with comparing to med list. 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 Since last visit she did see nephrology and pulmonology. Pulm did bx and results were negative. She is to follow up with nephrology in jun 2024. Patient reports she is in process of getting disability for her lung function. Past medical history, appointments, medications, allergies reviewed. Previous Medical History PAST MEDICAL HISTORY Diagnosis Date ASHD (arteriosclerotic heart disease) 10/25/[address] Goins Bilateral leg edema 04/25/2015 Bipolar affective disorder (HCC) 04/25/[address] Colindres Chest pain 02/14/[address] Jacob in [facility]. Had a normal cardiac CTA in 2009 with no calcium. Chronic back pain greater than 3 months duration 04/02/2015 Chronic insomnia 03/12/2020 Ilya Calderón ([facility]) on melatonin. Chronic obstructive pulmonary disease (HCC) 04/25/2015 Chronic pain 01/14/2014 Constipation 02/12/2014 [place] or callus 11/16/2015 Current use of proton pump inhibitor 10/11/2017 CVA (cerebral infarction) 01/14/2014 Diabetic eye exam (HCC) 01/14/[address] Sanchez last done 03/02/2019 Diabetic foot (HCC) 01/14/[address] Martins Extrapyramidal reaction 01/14/2014 Gastroesophageal reflux disease without esophagitis 04/25/2015 History of CVA (cerebrovascular accident) 04/25/[address] Ilya Calderón ([facility]) Hives 01/14/2014 Hypotension 01/14/2014 Sees Ilya Calderón ([facility]) and has her on fludrocortisone Incontinence of feces 07/08/2017 Irritable bowel syndrome with both constipation and diarrhea 04/28/2017 Low back pain 01/14/2014 Low vitamin B12 level 07/16/2022 Lumbosacral neuritis 04/16/2014 Major depressive disorder, recurrent episode, moderate (HCC) 04/25/2015 On disability Migraine without aura and without status migrainosus, not intractable 04/28/[address] Calderón Mixed hyperlipidemia 01/14/2014 Mixed incontinence urge and stress (male)(female) 07/25/2018 Morbid obesity due to excess calories (HCC) 10/27/2016 Muscle weakness (generalized) 07/25/2018 Myofascial pain 04/16/2014 Nodule of left lung 12/17/2015 CT 09/2018 still stable, no further CT's needed. Seen on CT of abd/pelv 11/2015. CT 06/2016 showed stable left nodule, Stable 09/2016 repeat 10/2017: stable repeat 06/2018 Paroxysmal atrial fibrillation (HCC) 11/23/2021 Perforation of left tympanic membrane 05/21/2019 chronic Physical deconditioning 04/02/2015 PMH - PAST MEDICAL HISTORY OF ovarian cysts PMH - PAST MEDICAL HISTORY OF bladder tipped, has incontience PMH - PAST MEDICAL HISTORY OF irregular heart beat Smoker 11/20/2020 Started age 15 at 1.5 PPD Stage 3b chronic kidney disease (HCC) 11/24/2020 Tardive dyskinesia 03/12/2020 Ilya Calder[facility] ([facility]) Type 2 diabetes mellitus without complication (HCC) 04/25/2015 Urinary incontinence 07/08/2017 Well adult exam 10/27/2016 last done: 06/09/2022 Previous Surgical History PAST SURGICAL HISTORY Procedure Laterality Date *STRESS TEST PC 05/06/2016 WNL 2D ECHO (EXEP) 01/14/2014 EF=65% Trival OH, TI, PI, LA enlarged. CARPAL TUNNEL Bilateral 08/28 and 09/25 COLONOSCOPY FLX DX W/COLLJ SPEC WHEN PFRMD 2011 tahir baron Colonoscopy, no polyps repeat 10 yrs CRYOCAUTERY OF CERVIX or twice DILATION & CURETTAGE DX&/THER NONOBSTETRIC Dilation & curettage ESOPHAGOGASTRODUODENOSCOPY TRANSORAL DIAGNOSTIC EGD LIG/TRNSXJ FLP TUBE ABDL/VAG APPR UNI/BI Tubal ligation PAST SURGICAL HISTORY OF 07/2015 had left medial elbow sugery but can't explain for what. PAST SURGICAL HISTORY OF Right 2012 repair rotator cuff and bone spurs PAST SURGICAL HISTORY OF 09/09/2020 bladder interstim for overactive bladder per Dr. Alba PAST SURGICAL HISTORY OF cholecystectomy PT ED UROLOGY 08/2020 IPG Family History FAMILY HISTORY Problem Relation Age of Onset Hypertension Mother Diabetes Mother other (hysterectomy) Mother fibroids other (hysterectomy) Maternal Grandmother fibroids Heart Son irregular heart beat Cancer Paternal Aunt No Ocular Disease No Family History Patient Allergies ALLERGIES Allergen Reactions Penicillins Hives Tetanus, Diphtheria* Swelling local reaction Aspirin Unknown Benztropine Unknown Diazepam Unknown Imodium [Loperamide] Other: See Comments Chest pain Mellaril [Thioridaz* GI Upset Pneumovax 23 [Pneum* Intolerance Sulfa (Sulfonamide * GI Upset Causes vomiting and rash Tegretol [Carbamaze* GI Upset Current Medications Current Outpatient Medications on File Prior to Visit Medication Sig hyoscyamine SR (LEVBID) 0.375 mg 12 hr tablet Take 1 tablet by mouth two times a day. omeprazole (PRILOSEC) 40 mg capsule Take 1 capsule by mouth once daily. lovastatin (MEVACOR) 20 mg tablet TAKE 1 TABLET BY MOUTH DAILY AT BEDTIME. FOR CHOLESTEROL. furosemide (LASIX) 20 mg tablet Take 1 tablet by mouth once daily. ipratropium-albuterol (DUONEB) 0.5 mg-3 mg(2.5 mg base)/3 mL nebu Inhale 3 mL as instructed every 3hours as needed for wheezing/shortness of breath. For SOB related to ACUTE RESPIRATORY FAILURE WITHHYPOXIA (J96.01) while awake albuterol HFA (VENTOLIN HFA) 90 mcg/actuation inhaler INHALE 2 PUFFS INSTRUCTED EVERY FOUR HOURSAS NEEDED cyanocobalamin (VITAMIN B-12) 500 mcg tablet Take 1 tablet by mouth once daily. MEDICAL SUPPLY Please replace pull up every 1.5-2 hrs while awake and 1-3 times a night to reduce risk of skin break down and secondary infections. #240 a month Dx: N39.46 and R15.9 citalopram hydrobromide (CELEXA) 10 mg tablet Take 1 tablet by mouth once daily. Per psych, Dr. Negrete (Patient taking differently: Take 10 mg by mouth once daily. Per psych, Dr. Negrete) apixaban (ELIQUIS) 5 mg tab(s) Take 1 tablet by mouth twice daily. Per Cardio, Fish QUEtiapine ER (SEROQUEL XR) 200 mg 24 hr tablet Take 1 tablet by mouth twice daily. Per psych, Dr. Negrete traZODone (DESYREL) 100 mg tablet daily at bedtime. nitroglycerin sublingual (NITROQUICK) 0.4 mg SL tablet Dissolve 1 tablet under the tongue every 5 minutes as needed for chest pain. Docosahexanoic Acid-Eicosapent (FISH OIL) 120-180 mg capsule Take 2 g by mouth once daily. COMPOUNDED PRESCRIPTION Adult diapers size XL Change diaper up to seven times a day. # 210 diapers With 5 refills Dx: R32 and R15.9 omega-3 fatty acids 1,000 mg cap Take 2 capsules by mouth once daily. LORazepam (ATIVAN) 0.5 mg tab Take 1 tablet by mouth twice daily as needed (anxiety). melatonin (MELATIN ORAL) Take by mouth as directed. spironolactone (ALDACTONE) 25 mg tablet Take 1 tablet by mouth once daily. Lancets lancets Test blood sugar(s) 1 times daily. Dx: Type 2 DM - Controlled E11.9 Insulin: No (Patient not taking: Reported on 03/11/2023) baclofen 10 mg tablet Take 1 tablet by mouth twice daily as needed (muscle spasms). For leg cramps (Patient not taking: Reported on 09/27/2023) rimegepant (NURTEC ODT) 75 mg disintegrating tablet Take 1 tablet by mouth once daily as needed. (Patient not taking: Reported on 09/27/2023) amantadine HCl (SYMMETREL) 100 mg capsule Take 1 capsule by mouth twice daily. Per Neuro, Dr. Calderón (Patient not taking: Reported on 09/27/2023) fludrocortisone (FLORINEF) 0.1 mg tablet Take 1 tablet by mouth once daily. Per Neuro, Dr. Calderón (Patient not taking: Reported on 09/27/2023) hydrocortisone (ANUSOL-HC) 2.5 % rectal cream by RECTAL route twice daily. (Patient not taking: Reported on 09/27/2023) No current facility-administered medications on file prior to visit. Social History Social History Tobacco Use Smoking status: Every Day Packs/day: 2.00 Years: 50.00 Additional pack years: 0.00 Total pack years: 100.00 Types: Cigarettes Smokeless tobacco: Never Tobacco comments: 1.5 to 2 packs/day Vaping Use Vaping Use: Never used Substance Use Topics Alcohol use: No Drug use: No Review of Symptoms REVIEW OF SYSTEMS See hpi EXAM: BP 102/70 (BP Site: Left Arm, BP Position: Sitting, BP Cuff Size: Regular Adult) Pulse 95 Temp 37 C (98.6 F) Resp 18 Ht 161.3 cm (5' 3.5) Wt 120.7 kg (266 lb) LMP 02/22/2006 BMI 46.38 kg/m General Appearance: Well appearing, alert, in no acute distress, well-hydrated, well nourished.. morbidly obese MSK: limited ROM of b/l shoulder. R shoulder: pain to palp throughout. Neg canales. Empty can test shows mild weakness. NVI L shoulder: pain to palp throughout. +canales, +empty can. Unable to do neers test due to pain. NVI. Legs: 1+ edema b/l. No erythema. Health Maintenance List Shingrix Vaccine(1 of 2) Never done Colorectal Cancer Screening due on 09/27/2021 RSV Vaccine(1 - 1-dose 60+ series) Never done Mammogram Screening due on 06/24/2022 Urine Albumin:Creatinine Ratio due on 12/05/2022 Covid-19 Vaccine(2022- season) Never done Pap Testing due on 05/22/2023 HPV Testing due on 05/22/2023 Diabetic Foot Exam due on 06/09/2023 HbA1C due on 08/31/2023 Hemoglobin/Hematocrit due on 11/03/2023 Dilated Retinal Exam due on 01/05/2024 LDL Cholesterol due on 02/29/2024 Annual PCP Team Chronic Disease Visit due on 02/29/2024 Serum Creatinine due on 05/16/2024 Hepatitis C Screening Completed HIV Screening Completed DTaP,Tdap,Td Vaccine Discontinued Alpha-1 Antitrypsin Deficiency Screening Discontinued Spirometry Discontinued Lung Cancer Screening Discontinued Influenza Vaccine Discontinued Pneumococcal Vaccine Discontinued Data reviewed ASSESSMENT/PLAN: 1. Chronic pain of both shoulders - ICD9: 719.41, 338.29, ICD10: M25.511, G89.29, M25.512 (primary diagnosis) - Check xray - Suggested Physical Therapy but patient is dependant on transportation and does not feel like she would be able to complete Physical Therapy. - Will set up with ortho to see if they think an injection would be beneficial. - XR SHOULDER GENERAL 3V OR MORE AP/TRUE AP/OTHER LEFT - XR SHOULDER GENERAL 3V OR MORE AP/TRUE AP/OTHER RIGHT - CONSULT TO ORTHOPAEDICS 2. Type 2 diabetes mellitus without complication, without long-term current use of insulin (HCC) - ICD9: 250.00, ICD10: E11.9 - HGB A1C - ALBUMIN/CREAT RATIO RND UR - URINALYSIS, WITH MICROSCOPIC - CBC + DIFF - COMP METABOLIC PANEL 3. Major depressive disorder, recurrent episode, moderate (HCC) - ICD9: 296.32, ICD10: F33.1 4. Gastroesophageal reflux disease without esophagitis - ICD9: 530.81, ICD10: K21.9 5. Mixed hyperlipidemia - ICD9: 272.2, ICD10: E78.2 - LIPID PANEL, NONFASTING Meagan Yusuf PA-C Set up follow up with PCP for extensive exam and med review. Will attempt to get list of meds from [place] to see who is prescribing what medications. I spent a total of 45 minutes on the date of the service which included preparing to see the patient, [id number] patient care, completing clinical documentation, obtaining and/or reviewing separately obtained history, performing a medically appropriate examination, counseling and educating the pat ient/family/caregiver, ordering medications, tests, or procedures, and communicating with other HCPs (not separately reported). documented in this encounterMer[facility]03-04-2024 Miscellaneous Notes* Telephone Encounter - Ana Cardoza LPN - 09/19/2023 8:25 AM EST Letter mailed to pt. Ana Cardoza LPN * Telephone Encounter - Ana Cardoza LPN - 09/17/2023 8:58 AM EST Left a message for pt to call the office and ask to speak to a nurse. Ana Cardoza LPN * Telephone Encounter - Aspen Bell LPN - 09/16/2023 12:42 PM EST Left message for pt to contact office. Aspen Bell LPN * Telephone Encounter - Homer Bradford MD - 09/15/2023 3:48 PM EST Let patient know I only sent in refills for a month. At her visit in February she was to make a f/u appt for a complete PE with me in 6 months which wouldof been Aug 2023 and appears she did not do this. Will need seen for PE before further refills provided. The following approved medication requests have been transmitted electronically. Requested Prescriptions Signed Prescriptions Disp Refills hyoscyamine SR (LEVBID) 0.375 mg 12 hr tablet 60 tablet 0 Sig: Take 1 tablet by mouth two times a day. Authorizing Provider: HOMER BRADFORD omeprazole (PRILOSEC) 40 mg capsule 30 capsule 0 Sig: Take 1 capsule by mouth once daily. Authorizing Provider: HOMER BRADFORD lovastatin (MEVACOR) 20 mg tablet 30 tablet 0 Sig: TAKE 1 TABLET BY MOUTH DAILY AT BEDTIME. FOR CHOLESTEROL. Authorizing Provider: HOMER BRADFORD MD * Telephone Encounter - Maria Alejandra Braswell RN - 09/15/2023 3:30 PM EST Patient has been identified by name and date of : Yes, Provider Date Time Pharmacy phones for refill(s): Requested Prescriptions Pending Prescriptions Disp Refills hyoscyamine SR (LEVBID) 0.375 mg 12 hr tablet 60 tablet 5 Sig: Take 1 tablet by mouth two times a day. omeprazole (PRILOSEC) 40 mg capsule 30 capsule 5 Sig: Take 1 capsule by mouth once daily. lovastatin (MEVACOR) 20 mg tablet 30 tablet 5 Sig: TAKE 1 TABLET BY MOUTH DAILY AT BEDTIME. FOR CHOLESTEROL. Date of last office visit in primary care: 02/28/2023 Date of next office visit in primary care: Visit date not found Please advise. Thank you. Maria Alejandra Braswell RN. documented in this encounterMer[facility]10-26-2023 History of Present illness Narrative* Aspen Bell LPN - 05/12/2023 12:40 PM EDT Scan on 05/11/2023 3:41 PM by Provider, ANTONI Pelayo: CT Scan documented in this encounterMer[facility]10-20-2023 Miscellaneous Notes* Telephone Encounter - Aspen Bell LPN - 05/06/2023 2:46 PM EDT Advised pt of same. States it's for her kidney DrMarci Advised her she will need to contact him for laborders. Pt verbalizes understanding. Aspen Bell LPN * Telephone Encounter - Homer Bradford MD - 05/06/2023 2:24 PM EDT If patient is requesting lab work if needed before she follows up with Dr. Alba her Urologist then she needs to call Dr. Tenorio's office. * Telephone Encounter - Elsie Adams - 05/06/2023 10:11 AM EDT Pt requesting labs before her urology appt. Please advise and call patient if labs have been ordered Thank you documented in this encounterMer[facility]10-13-2023 Miscellaneous Notes* Telephone Encounter - Homer Bradford MD - 04/29/2023 4:30 PM EDT The following approved medication requests have been transmitted electronically. Requested Prescriptions Signed Prescriptions Disp Refills furosemide (LASIX) 20 mg tablet 30 tablet 5 Sig: Take 1 tablet by mouth once daily. Authorizing Provider: HOMER BRADFORD MD * Telephone Encounter - Umm York RN - 04/29/2023 3:17 PM EDT Date of last office: 02/28/2023 Date of next office visit: 09/07/2023 Requested Prescriptions Pending Prescriptions Disp Refills furosemide (LASIX) 20 mg tablet 30 tablet 5 Sig: Take 1 tablet by mouth once daily. Date of Last Labs: 02/28/2023 Please advise. Thank you. Umm York RN. documented in this encounterMer[facility]09-15-2023 Miscellaneous Notes* Telephone Encounter - Homer Bradford MD - 04/01/2023 4:59 PM EDT The following approved medication requests have been transmitted electronically. Requested Prescriptions Signed Prescriptions Disp Refills lovastatin (MEVACOR) 20 mg tablet 30 tablet 5 Sig: TAKE 1 TABLET BY MOUTH DAILY AT BEDTIME. FOR CHOLESTEROL. Authorizing Provider: HOMER BRADFORD spironolactone (ALDACTONE) 25 mg tablet 30 tablet 5 Sig: Take 1 tablet by mouth once daily. Authorizing Provider: HOMER BRADFORD omeprazole (PRILOSEC) 40 mg capsule 30 capsule 5 Sig: Take 1 capsule by mouth once daily. Authorizing Provider: HOMER BRADFORD hyoscyamine SR (LEVBID) 0.375 mg 12 hr tablet 60 tablet 5 Sig: Take 1 tablet by mouth twice daily. Authorizing Provider: HOMER BRADFORD MD * Telephone Encounter - Umm York RN - 04/01/2023 4:21 PM EDT Last Office Visit: 02/28/2023 Future Office Visit: 09/07/2022 Requested Prescriptions Pending Prescriptions Disp Refills lovastatin (MEVACOR) 20 mg tablet 30 tablet 5 Sig: TAKE 1 TABLET BY MOUTH DAILY AT BEDTIME. FOR CHOLESTEROL. spironolactone (ALDACTONE) 25 mg tablet 30 tablet 5 Sig: Take 1 tablet by mouth once daily. omeprazole (PRILOSEC) 40 mg capsule 30 capsule 5 Sig: Take 1 capsule by mouth once daily. hyoscyamine SR (LEVBID) 0.375 mg 12 hr tablet 60 tablet 5 Sig: Take 1 tablet by mouth twice daily. Date of Last Labs: 02/28/2023 documented in this encounterMercy [facility]09-11-2023 History of Present illness Narrative* Carol Armenta Ma - 03/28/2023 2:16 PM EDT View External Labs - Hematology [ID [id number]] View External Procedures - Pulmonary [ID [id number]] View External Imaging - X-ray [ID [id number]] documented in this encounterMercy [facility]08-25-2023 Nurse Note* Viola Perez LPN - 03/11/2023 1:50 PM EDT REVIEW OF SYSTEMS: General: The patient denies fatigue, denies weight loss, NOTES weight gain, denies feeling hot, anddenies feelings of cold. Eyes: The patient NOTES glaucoma, denies eye injury/surgery, wears glasses or contacts. Ear/Nose/Throat: The patient NOTES allergies, denies hayfever, denies ear infections, and denies bloody noses. Cardiovascular: The patient denies chest pain, NOTES heart disease, denies high blood pressure,denies cardiac stent, denies prior heart attack, denies irregular heart beat, denies high cholesterol, denies poor circulation, denies heart failure, other cardiac issues, denies claudication, denies coldfeet, denies peripheral arterial stent. Respiratory: The patient denies tuberculosis, denies pneumonia, denies frequent cough, denies pulmonary embolism, NOTES shortness of breath, and denies coughing up blood. Gastrointestinal: The patient denies difficulty swallowing, NOTES acid reflux, denies ulcers, denies vomiting, denies jaundice/hepatitis, denies gallbladder problems, denies black or tarry stools, denies hemorrhoids, denies bleeding from rectum, denies diverticulitis, denies constipation, denies diarrhea, denies loss of stool control, and denies hernias. Kidney/Bladder: The patient denies kidney stones, denies urine infections, and denies bloody urine. Skin: The patient denies a history of skin cancer, denies bleeding/changing moles, and NOTES a history of skin rash. Neurologic: The patient denies a history of epilepsy/convulsions, NOTES headaches, denies head/spinal injuries, and denies stroke/TIA. Psychiatric: The patient NOTES psychiatric medications, NOTES depression, and NOTES voices, denies substance abuse. Endocrine: The patient denies thyroid disorders, NOTES diabetes, and denies hormonal problems. Hematologic: The patient NOTES a history of bruising, denies bleeding, and denies anemia, denies blood clots. Infections: The patient denies a history of measles and mumps, denies rheumatic fever, and denies sexually transmitted diseases. Musculoskeletal: The patient NOTES back pain/injury, denies back problems, denies sciatica, denies knee/foot trouble, denies arthritis, or denies gout. When was patient's last Mammogram screening? 06/24/2021 Last Colonoscopy: 09/2011 Viola Perez LPN documented in this encounterMercy [facility]08-25-2023 History of Present illness Narrative* Caterina Dejesus PA-C - 03/11/2023 1:49 PM EDT HISTORY AND PHYSICAL Pernell Rodriguez 1960 REFERRING PHYSICIAN: Meagan Yusuf PA-C CHIEF COMPLAINT: New Patient (Screening for colon cancer) HPI: The patient is a 63 year old female referred for endoscopy. Pernell notes no colon complaints. Patient denies any change in bowel habits, weight changes, blood in stools, black tarry stools or abdominal pain. Denies family history of colon issues. The patient notes no upper GI complaints. Pernell has undergone prior endoscopy. Last colonoscopy reported as [address] Baron, records not available for review. Patient does not recall polyps or other concerning findings at that time. Medical history significant for bladder implant device, ASHD, CVA, GERD, COPD, obesity, tardive dyskinesia, diabetes mellitus, hyperlipidemia. Patient follows with Dr. Bradford in primary care. Patient denies chest pain, shortness of breath or recent hospitalizations. Denies problems with sedation in the past. PAST MEDICAL HISTORY Diagnosis Date ASHD (arteriosclerotic heart disease) 10/25/[address] Goins Bilateral leg edema 04/25/2015 Bipolar affective disorder (HCC) 04/25/[address] Colindres Chest pain 02/14/[address] Jacob in [facility]. Had a normal cardiac CTA in 2009 with no calcium. Chronic back pain greater than 3 months duration 04/02/2015 Chronic insomnia 03/12/2020 Ilya Calderón ([facility]) on melatonin. Chronic obstructive pulmonary disease (HCC) 04/25/2015 Chronic pain 01/14/2014 Constipation 02/12/2014 [place] or callus 11/16/2015 Current use of proton pump inhibitor 10/11/2017 CVA (cerebral infarction) 01/14/2014 Diabetic eye exam (HCC) 01/14/[address] Sanchez last done 03/02/2019 Diabetic foot (HCC) 01/14/[address] Martins Extrapyramidal reaction 01/14/2014 Gastroesophageal reflux disease without esophagitis 04/25/2015 History of CVA (cerebrovascular accident) 04/25/[address] Ilya Calderón ([facility]) Hives 01/14/2014 Hypotension 01/14/2014 Sees Ilya Calderón ([facility]) and has her on fludrocortisone Incontinence of feces 07/08/2017 Irritable bowel syndrome with both constipation and diarrhea 04/28/2017 Low back pain 01/14/2014 Low vitamin B12 level 07/16/2022 Lumbosacral neuritis 04/16/2014 Major depressive disorder, recurrent episode, moderate (HCC) 04/25/2015 On disability Migraine without aura and without status migrainosus, not intractable 04/28/[address] Calderón Mixed hyperlipidemia 01/14/2014 Mixed incontinence urge and stress (male)(female) 07/25/2018 Morbid obesity due to excess calories (HCC) 10/27/2016 Muscle weakness (generalized) 07/25/2018 Myofascial pain 04/16/2014 Nodule of left lung 12/17/2015 CT 09/2018 still stable, no further CT's needed. Seen on CT of abd/pelv 11/2015. CT 06/2016 showed stable left nodule, Stable 09/2016 repeat 10/2017: stable repeat 06/2018 Paroxysmal atrial fibrillation (HCC) 11/23/2021 Perforation of left tympanic membrane 05/21/2019 chronic Physical deconditioning 04/02/2015 PMH - PAST MEDICAL HISTORY OF ovarian cysts PMH - PAST MEDICAL HISTORY OF bladder tipped, has incontience PMH - PAST MEDICAL HISTORY OF irregular heart beat Smoker 11/20/2020 Started age 15 at 1.5 PPD Stage 3b chronic kidney disease (HCC) 11/24/2020 Tardive dyskinesia 03/12/2020 Ilya Calderón ([facility]) Type 2 diabetes mellitus without complication (HCC) 04/25/2015 Urinary incontinence 07/08/2017 Well adult exam 10/27/2016 last done: 06/09/2022 PAST SURGICAL HISTORY Procedure Laterality Date *STRESS TEST PC 05/06/2016 WNL 2D ECHO (EXEP) 01/14/2014 EF=65% Trival OH, TI, PI, LA enlarged. CARPAL TUNNEL Bilateral 08/28 and 09/25 COLONOSCOPY FLX DX W/COLLJ SPEC WHEN PFRMD 2011 tahir baron Colonoscopy, no polyps repeat 10 yrs CRYOCAUTERY OF CERVIX or twice DILATION & CURETTAGE DX&/THER NONOBSTETRIC Dilation & curettage ESOPHAGOGASTRODUODENOSCOPY TRANSORAL DIAGNOSTIC EGD LIG/TRNSXJ FLP TUBE ABDL/VAG APPR UNI/BI Tubal ligation PAST SURGICAL HISTORY OF 07/2015 had left medial elbow sugery but can't explain for what. PAST SURGICAL HISTORY OF Right 2012 repair rotator cuff and bone spurs PAST SURGICAL HISTORY OF 09/09/2020 bladder interstim for overactive bladder per Dr. Alba PAST SURGICAL HISTORY OF cholecystectomy PT ED UROLOGY 08/2020 IPG Current Outpatient Medications Medication Sig ipratropium-albuterol (DUONEB) 0.5 mg-3 mg(2.5 mg base)/3 mL nebu Inhale 3 mL as instructed every 3hours as needed for wheezing/shortness of breath. For SOB related to ACUTE RESPIRATORY FAILURE WITHHYPOXIA (J96.01) while awake albuterol HFA (VENTOLIN HFA) 90 mcg/actuation inhaler INHALE 2 PUFFS INSTRUCTED EVERY FOUR HOURSAS NEEDED baclofen 10 mg tablet Take 1 tablet by mouth twice daily as needed (muscle spasms). For leg cramps furosemide (LASIX) 20 mg tablet Take 1 tablet by mouth once daily. hyoscyamine SR (LEVBID) 0.375 mg 12 hr tablet Take 1 tablet by mouth twice daily. omeprazole (PRILOSEC) 40 mg capsule Take 1 capsule by mouth once daily. spironolactone (ALDACTONE) 25 mg tablet Take 1 tablet by mouth once daily. lovastatin (MEVACOR) 20 mg tablet TAKE 1 TABLET BY MOUTH DAILY AT BEDTIME. FOR CHOLESTEROL. rimegepant (NURTEC ODT) 75 mg disintegrating tablet Take 1 tablet by mouth once daily as needed. cyanocobalamin (VITAMIN B-12) 500 mcg tablet Take 1 tablet by mouth once daily. MEDICAL SUPPLY Please replace pull up every 1.5-2 hrs while awake and 1-3 times a night to reduce risk of skin break down and secondary infections. #240 a month Dx: N39.46 and R15.9 citalopram hydrobromide (CELEXA) 10 mg tablet Take 1 tablet by mouth once daily. Per psych, Dr. Negrete (Patient taking differently: Take 10 mg by mouth once daily. Per psych, Dr. Negrete) amantadine HCl (SYMMETREL) 100 mg capsule Take 1 capsule by mouth twice daily. Per Neuro, Dr. Calderón apixaban (ELIQUIS) 5 mg tab(s) Take 1 tablet by mouth twice daily. Per Cardio, Fish fludrocortisone (FLORINEF) 0.1 mg tablet Take 1 tablet by mouth once daily. Per Neuro, Dr. Calderón QUEtiapine ER (SEROQUEL XR) 200 mg 24 hr tablet Take 1 tablet by mouth twice daily. Per psych, Dr. Negrete traZODone (DESYREL) 100 mg tablet daily at bedtime. nitroglycerin sublingual (NITROQUICK) 0.4 mg SL tablet Dissolve 1 tablet under the tongue every 5 minutes as needed for chest pain. Docosahexanoic Acid-Eicosapent (FISH OIL) 120-180 mg capsule Take 2 g by mouth once daily. hydrocortisone (ANUSOL-HC) 2.5 % rectal cream by RECTAL route twice daily. COMPOUNDED PRESCRIPTION Adult diapers size XL Change diaper up to seven times a day. # 210 diapers With 5 refills Dx: R32 and R15.9 omega-3 fatty acids 1,000 mg cap Take 2 capsules by mouth once daily. LORazepam (ATIVAN) 0.5 mg tab Take 1 tablet by mouth twice daily as needed (anxiety). Lancets lancets Test blood sugar(s) 1 times daily. Dx: Type 2 DM - Controlled E11.9 Insulin: No (Patient not taking: Reported on 03/11/2023) No current facility-administered medications for this visit. ALLERGIES: Penicillins; Tetanus, Diphtheria Tox Absorb Adult,Child Booster; Aspirin; Benztropine; Diazepam; Imodium [Loperamide]; Mellaril [Thioridazine]; Pneumovax 23 [Pneumococcal 23-Sharla Ps Vaccine]; Sulfa (Sulfonamide Antibiotics); and Tegretol [Carbamazepine] PERSONAL HISTORY: Social History Tobacco Use Smoking status: Every Day Packs/day: 2.00 Years: 50.00 Additional pack years: 0.00 Total pack years: 100.00 Types: Cigarettes Smokeless tobacco: Never Tobacco comments: 1.5 to 2 packs/day Vaping Use Vaping Use: Never used Substance Use Topics Alcohol use: No Drug use: No FAMILY HISTORY: FAMILY HISTORY Problem Relation Age of Onset Hypertension Mother Diabetes Mother other (hysterectomy) Mother fibroids other (hysterectomy) Maternal Grandmother fibroids Heart Son irregular heart beat Cancer Paternal Aunt No Ocular Disease No Family History REVIEW OF SYMPTOMS: The review of systems data was entered by the nurse and reviewed by me Nursing Notes: Chris ViolaKRISTAL 03/11/2023 2:01 PM Signed REVIEW OF SYSTEMS: General: The patient denies fatigue, denies weight loss, NOTES weight gain, denies feeling hot, anddenies feelings of cold. Eyes: The patient NOTES glaucoma, denies eye injury/surgery, wears glasses or contacts. Ear/Nose/Throat: The patient NOTES allergies, denies hayfever, denies ear infections, and denies bloody noses. Cardiovascular: The patient denies chest pain, NOTES heart disease, denies high blood pressure,denies cardiac stent, denies prior heart attack, denies irregular heart beat, denies high cholesterol, denies poor circulation, denies heart failure, other cardiac issues, denies claudication, denies coldfeet, denies peripheral arterial stent. Respiratory: The patient denies tuberculosis, denies pneumonia, denies frequent cough, denies pulmonary embolism, NOTES shortness of breath, and denies coughing up blood. Gastrointestinal: The patient denies difficulty swallowing, NOTES acid reflux, denies ulcers, denies vomiting, denies jaundice/hepatitis, denies gallbladder problems, denies black or tarry stools, denies hemorrhoids, denies bleeding from rectum, denies diverticulitis, denies constipation, denies diarrhea, denies loss of stool control, and denies hernias. Kidney/Bladder: The patient denies kidney stones, denies urine infections, and denies bloody urine. Skin: The patient denies a history of skin cancer, denies bleeding/changing moles, and NOTES a history of skin rash. Neurologic: The patient denies a history of epilepsy/convulsions, NOTES headaches, denies head/spinal injuries, and denies stroke/TIA. Psychiatric: The patient NOTES psychiatric medications, NOTES depression, and NOTES voices, denies substance abuse. Endocrine: The patient denies thyroid disorders, NOTES diabetes, and denies hormonal problems. Hematologic: The patient NOTES a history of bruising, denies bleeding, and denies anemia, denies blood clots. Infections: The patient denies a history of measles and mumps, denies rheumatic fever, and denies sexually transmitted diseases. Musculoskeletal: The patient NOTES back pain/injury, denies back problems, denies sciatica, denies knee/foot trouble, denies arthritis, or denies gout. When was patient's last Mammogram screening? 06/24/2021 Last Colonoscopy: 09/2011 Viola Perez LPN I have confirmed and edited as necessary, the PFSH and ROS obtained by others. Caterina Dejesus PA-C PHYSICAL EXAMINATION: General: The patient is 63 year old female, well nourished, well hydrated in no acute distress. Thepatient is oriented to time, place, and person. VITALS: Blood pressure 112/72, pulse 84, temperature 36.1 C (97 F), temperature source Temporal, resp. rate 22, height 161.3 cm (5' 3.5), weight 122.5 kg (270 lb), last menstrual period 02/22/2006, SpO2 95 %. Body mass index is 47.08 kg/m . HEENT: Normal cephalic, ataumatic, pupils are equally round, sclera are anicteric, mucous membranesare moist, oropharynx is clear. Neck has no masses, asymmetry or lymphadenopathy. Respiratory: Clear to auscultation and percussion. Normal respiratory excursion and pattern. Cardiac: Examination is regular rate and rhythm. Normal S1/S2 Abdominal exam: Soft, nontender, with no palpable masses. No hepatosplenomegaly. No palpable hernias. Extremities: no clubbing, cyanosis or edema. No adenopathy. LABORATORY VALUES: As Noted RADIOLOGIC STUDIES: As Noted Assessment IMPRESSION: encounter for screening colonoscopy PLAN: I have reviewed my findings with the surgeon. Will plan for lower endoscopy. We discussed therisks and benefits of the planned endoscopy. I have informed the patient that complications can occur including failure to complete the endoscopy and perforation. The patient had the opportunity to ask questions concerning the planned endoscopy. My staff has also explained the procedure to the patient in understandable terms and has given the patient printed material concerning the procedure. Thepatient freely consents to surgery. I plan to use Miralax bowel preparation Patient requesting to have procedure at [facility] under conscious sedation. States she is unable to get a ride to have procedure done anywhere other than [place]. Chart forwarded to surgeon for review. Diagnoses: (Z12.11) Screening for colon cancer Consultation requested by Meagan Yusuf PA-C for an opinion regarding screening colonoscopy. Myfinal recommendations will be communicated back to the requesting physician by way of shared Medical record or letter to requesting physician via US mail. Caterina Dejesus PA-C documented in this encounterMer[facility]08-25-2023 Miscellaneous Notes* Telephone Encounter - Meagan Yusuf PA-C - 03/11/2023 7:31 AM EDT Noted. Meagan Yusuf PA-C * Telephone Encounter - Maria Alejandra Braswell RN - 03/10/2023 6:33 PM EDT Spoke with patient. Given message from provider's office. Patient verbalizes understanding. She states she saw Dr. Christopher, Pulmonary @ [facility] and she says she is having a lung biopsy on 03/17. Maria Alejandra Braswell RN * Telephone Encounter - Rajani Granger MA - 03/08/2023 9:20 AM EDT Attempted to contact patient no answer and voicemail full. Mailed letter. ' Rajani Granger MA * Telephone Encounter - Rajani Granger MA - 03/07/2023 8:37 AM EDT Attempted to contact patient again; no answer; voicemail full. Sent my chart message. Rajani Granger MA * Telephone Encounter - Caterina Salazar, OMARI - 03/04/2023 11:25 AM EDT Called patient and no answer. Patients voicemail was full. Will need to call back later. Caterina Salazar, RN * Telephone Encounter - Meagan Yusuf PA-C - 03/04/2023 11:03 AM EDT Patient's a1c is 5.9%. she does NOT need that insulin that she has at home so tell her to get rid of it. Her glucose is really well controlled without it. Her kidney function is slightly decreased still. Make sure she keeps her follow up visits with Dr. Bettencourt. Cholesterol levels are normal. Thyroid level is normal. Also ask if she has been able to contact pulmonology office yet. Thanks. Meagan Yusuf PA-C documented in this encounterMercy [facility]08-14-2023 Miscellaneous Notes* Telephone Encounter - Aspen Bell LPN - 02/28/2023 2:43 PM EDT Pt advised Meagan at ov today that she has not heard back regarding results of CT scan done by Dr Castaneda's office. States she tried to contact them but has not heard anything. Spoke with Nya at Dr christopher's office. She advises that pt missed her Dec appointment. They have left messages for her. She finally returned call and did the CT that was ordered. Called back for results but they were not available yet. Nya advises that pt's need ov to review results that they do not do this over the phone. Advises that they left her a vm and she has not responded yet. They will try reaching her again. Aspen Bell LPN documented in this encounterMercy Health [facility]08-14-2023 Instructions* Patient Instructions* Meagan Yusuf PA-C - 02/28/2023 2:12 PM EDT Please try contacting you lung specialist about the testing you had. documented in this encounterMercy Health [facility]08-14-2023 History of Present illness Narrative* Meagan Yusuf PA-C - 02/28/2023 2:07 PM EDT Chief Complaint Patient presents with: Recheck HPI Pernell Rodriguez is a 63 year old female who presents here today for Chronic Medical Conditions.. Patient with hx of migraines, tardive dyskinesia, ASHD, hlp, a.fib, lung nodules. COPD, smoker, CKD, DM2 and those as below Patient somewhat noncompliant with care. Patient states she did CT scan for pulm and hasn't heard results yet. She states she has insulin in her fridge that no one has taught her how to do. I informed patient that we didn't want her on the insulin. She states she has been gaining weight and wants to know why She is seeing dr. Perera and dr. Calderón still. Last 6 Encounter Wt Readings: Date: Wt: 10/04/2022 123.4 kg (272 lb) 09/15/2022 124.6 kg (274 lb 12.8 oz) 07/15/2022 119.3 kg (263 lb) 06/09/2022 119.3 kg (263 lb) 11/27/2021 106.1 kg (233 lb 12.8 oz) 10/14/2021 108.7 kg (239 lb 9.6 oz) Past medical history, appointments, medications, allergies reviewed. Previous Medical History PAST MEDICAL HISTORY Diagnosis Date ASHD (arteriosclerotic heart disease) 10/25/[address] Goins Bilateral leg edema 04/25/2015 Bipolar affective disorder (HCC) 04/25/[address] Colindres Chest pain 02/14/[address] Jacob in [facility]. Had a normal cardiac CTA in 2009 with no calcium. Chronic back pain greater than 3 months duration 04/02/2015 Chronic insomnia 03/12/2020 Ilya Calderón ([facility]) on melatonin. Chronic obstructive pulmonary disease (HCC) 04/25/2015 Chronic pain 01/14/2014 Constipation 02/12/2014 [place] or callus 11/16/2015 Current use of proton pump inhibitor 10/11/2017 CVA (cerebral infarction) 01/14/2014 Diabetic eye exam (HCC) 01/14/[address] Sanchez last done 03/02/2019 Diabetic foot ([facility]) 01/14/[address] Martins Extrapyramidal reaction 01/14/2014 Gastroesophageal reflux disease without esophagitis 04/25/2015 History of CVA (cerebrovascular accident) 04/25/[address] Ilya Calderón ([facility]) Hives 01/14/2014 Hypotension 01/14/2014 Sees Ilya Calderón ([facility]) and has her on fludrocortisone Incontinence of feces 07/08/2017 Irritable bowel syndrome with both constipation and diarrhea 04/28/2017 Low back pain 01/14/2014 Low vitamin B12 level 07/16/2022 Lumbosacral neuritis 04/16/2014 Major depressive disorder, recurrent episode, moderate ([facility]) 04/25/2015 On disability Migraine without aura and without status migrainosus, not intractable 04/28/[address] Calderón Mixed hyperlipidemia 01/14/2014 Mixed incontinence urge and stress (male)(female) 07/25/2018 Morbid obesity due to excess calories ([facility]) 10/27/2016 Muscle weakness (generalized) 07/25/2018 Myofascial pain 04/16/2014 Nodule of left lung 12/17/2015 CT 09/2018 still stable, no further CT's needed. Seen on CT of abd/pelv 11/2015. CT 06/2016 showed stable left nodule, Stable 09/2016 repeat 10/2017: stable repeat 06/2018 Paroxysmal atrial fibrillation ([facility]) 11/23/2021 Perforation of left tympanic membrane 05/21/2019 chronic Physical deconditioning 04/02/2015 PMH - PAST MEDICAL HISTORY OF ovarian cysts PMH - PAST MEDICAL HISTORY OF bladder tipped, has incontience PMH - PAST MEDICAL HISTORY OF irregular heart beat Smoker 11/20/2020 Started age 15 at 1.5 PPD Stage 3b chronic kidney disease (HCC) 11/24/2020 Tardive dyskinesia 03/12/2020 Ilya Calderón ([facility]) Type 2 diabetes mellitus without complication ([facility]) 04/25/2015 Urinary incontinence 07/08/2017 Well adult exam 10/27/2016 last done: 06/09/2022 Previous Surgical History PAST SURGICAL HISTORY Procedure Laterality Date *STRESS TEST PC 05/06/2016 WNL 2D ECHO (EXEP) 01/14/2014 EF=65% Trival [place], TI, PI, LA enlarged. CARPAL TUNNEL Bilateral 08/28 and 09/25 COLONOSCOPY FLX DX W/COLLJ SPEC WHEN PFRMD 2011 haro josamson Colonoscopy, no polyps repeat 10 yrs CRYOCAUTERY OF CERVIX or twice DILATION & CURETTAGE DX&/THER NONOBSTETRIC Dilation & curettage ESOPHAGOGASTRODUODENOSCOPY TRANSORAL DIAGNOSTIC EGD LIG/TRNSXJ FLP TUBE ABDL/VAG APPR UNI/BI Tubal ligation PAST SURGICAL HISTORY OF 07/2015 had left medial elbow sugery but can't explain for what. PAST SURGICAL HISTORY OF Right 2011 repair rotator cuff and bone spurs PAST SURGICAL HISTORY OF 09/09/2020 bladder interstim for overactive bladder per Dr. Alba PAST SURGICAL HISTORY OF cholecystectomy PT ED UROLOGY 08/2020 IPG Family History FAMILY HISTORY Problem Relation Age of Onset Hypertension Mother Diabetes Mother other (hysterectomy) Mother fibroids other (hysterectomy) Maternal Grandmother fibroids Heart Son irregular heart beat Cancer Paternal Aunt No Ocular Disease No Family History Patient Allergies ALLERGIES Allergen Reactions Penicillins Hives Tetanus, Diphtheria* Swelling local reaction Aspirin Unknown Benztropine Unknown Diazepam Unknown Imodium [Loperamide] Other: See Comments Chest pain Mellaril [Thioridaz* GI Upset Pneumovax 23 [Pneum* Intolerance Sulfa (Sulfonamide * GI Upset Causes vomiting and rash Tegretol [Carbamaze* GI Upset Current Medications Current Outpatient Medications on File Prior to Visit Medication Sig omeprazole (PRILOSEC) 40 mg capsule Take 1 capsule by mouth once daily. spironolactone (ALDACTONE) 25 mg tablet Take 1 tablet by mouth once daily. lovastatin (MEVACOR) 20 mg tablet TAKE 1 TABLET BY MOUTH DAILY AT BEDTIME. FOR CHOLESTEROL. cyanocobalamin (VITAMIN B-12) 500 mcg tablet Take 1 tablet by mouth once daily. baclofen (LIORESAL) 10 mg tablet Take 1 tablet by mouth twice daily as needed (muscle spasms). For leg cramps MEDICAL SUPPLY Please replace pull up every 1.5-2 hrs while awake and 1-3 times a night to reduce risk of skin break down and secondary infections. #240 a month Dx: N39.46 and R15.9 blood sugar diagnostic (BLOOD GLUCOSE TEST) test strip Test blood sugar(s) 1 times daily. Dx: Type 2 DM - Controlled E11.9 Insulin: No Lancets lancets Test blood sugar(s) 1 times daily. Dx: Type 2 DM - Controlled E11.9 Insulin: No citalopram hydrobromide (CELEXA) 10 mg tablet Take 1 tablet by mouth once daily. Per psych, Dr. Negrete (Patient taking differently: Take 10 mg by mouth once daily. Per psych, Dr. Negrete) amantadine HCl (SYMMETREL) 100 mg capsule Take 1 capsule by mouth twice daily. Per NeuroDr. Calderón apixaban (ELIQUIS) 5 mg tab(s) Take 1 tablet by mouth twice daily. Per Cardio, Alexandr fludrocortisone (FLORINEF) 0.1 mg tablet Take 1 tablet by mouth once daily. Per NeuroDr. Calderón QUEtiapine ER (SEROQUEL XR) 200 mg 24 hr tablet Take 1 tablet by mouth twice daily. Per psych, Dr. Negrete traZODone (DESYREL) 100 mg tablet daily at bedtime. ipratropium-albuterol (DUONEB) 0.5 mg-3 mg(2.5 mg base)/3 mL nebu Inhale 3 mL as instructed every 3hours as needed for wheezing/shortness of breath. For SOB related to ACUTE RESPIRATORY FAILURE WITHHYPOXIA (J96.01) while awake nitroglycerin sublingual (NITROQUICK) 0.4 mg SL tablet Dissolve 1 tablet under the tongue every 5 minutes as needed for chest pain. Docosahexanoic Acid-Eicosapent (FISH OIL) 120-180 mg capsule Take 2 g by mouth once daily. hydrocortisone (ANUSOL-HC) 2.5 % rectal cream by RECTAL route twice daily. COMPOUNDED PRESCRIPTION Adult diapers size XL Change diaper up to seven times a day. # 210 diapers With 5 refills Dx: R32 and R15.9 omega-3 fatty acids 1,000 mg cap Take 2 capsules by mouth once daily. LORazepam (ATIVAN) 0.5 mg tab Take 1 tablet by mouth twice daily as needed (anxiety). furosemide (LASIX) 20 mg tablet Take 1 tablet by mouth once daily. hyoscyamine SR (LEVBID) 0.375 mg 12 hr tablet Take 1 tablet by mouth twice daily. rimegepant (NURTEC ODT) 75 mg disintegrating tablet Take 1 tablet by mouth once daily as needed. albuterol HFA (VENTOLIN HFA) 90 mcg/actuation inhaler INHALE 2 PUFFS INSTRUCTED EVERY FOUR HOURSAS NEEDED No current facility-administered medications on file prior to visit. Social History Social History Tobacco Use Smoking status: Every Day Packs/day: 2.00 Years: 50.00 Additional pack years: 0.00 Total pack years: 100.00 Types: Cigarettes Smokeless tobacco: Never Tobacco comments: 1.5 to 2 packs/day Vaping Use Vaping Use: Never used Substance Use Topics Alcohol use: No Drug use: No Review of Symptoms REVIEW OF SYSTEMS See hpi EXAM: BP 100/66 (BP Site: Left Arm, BP Position: Sitting, BP Cuff Size: Large Adult) Pulse 90 Temp 36.7 C (98.1 F) Resp 20 Wt 122.5 kg (270 lb) LMP 02/22/2006 SpO2 92% BMI 46.35 kg/m General Appearance: Well appearing, alert, in no acute distress, well-hydrated, well nourished., Morbidly obese, and Walker. Neck: Supple, no adenopathy; thyroid symmetric, normal size, no bruits. Lungs: Faint wheezes noted. Heart: RRR without murmur, gallop, or rubs. No ectopy. Extremities: No deformities, edema, skin discoloration, clubbing or cyanosis. Good capillary refill. . Peripheral Pulses: Normal. Health Maintenance List COLORECTAL CANCER SCREENING due on 09/27/2021 MAMMOGRAM due on 06/24/2022 HBA1C due on 01/13/2023 PAP TESTING due on 05/22/2023 HPV TESTING due on 05/22/2023 SHINGRIX VACCINE(1 of 2) due on 06/09/2023 COVID-19 VACCINE(1) due on 10/22/2023 DIABETIC FOOT EXAM due on 06/09/2023 LDL CHOLESTEROL due on 07/15/2023 ANNUAL PCP TEAM CHRONIC DISEASE VISIT due on 10/22/2023 SERUM CREATININE due on 11/03/2023 HEMOGLOBIN/HEMATOCRIT due on 11/03/2023 DILATED RETINAL EXAM due on 01/05/2024 HEPATITIS C SCREENING Completed HIV SCREENING Completed DTAP,TDAP,TD Discontinued ALPHA-1 ANTITRYPSIN DEFICIENCY SCREENING Discontinued SPIROMETRY Discontinued LUNG CANCER SCREENING Discontinued INFLUENZA Discontinued PNEUMOCOCCAL Discontinued Data reviewed ASSESSMENT/PLAN: 1. Mixed hyperlipidemia - ICD9: 272.2, ICD10: E78.2 (primary diagnosis) - Control undetermined, due for labs - Continue current medications - Counseled on healthy diet and regular exercise - LIPID PANEL, NONFASTING 2. Type 2 diabetes mellitus without complication, with long-term current use of insulin (HCC) - ICD9: 250.00, V58.67, ICD10: E11.9, Z79.4 - Control undetermined, due for labs No changes at this time. - HGB A1C - COMP METABOLIC PANEL 3. Chronic obstructive pulmonary disease, unspecified COPD type (HCC) - ICD9: 496, ICD10: J44.9 Patient to get ahold of pul We will contact them as well 4. Morbid obesity due to excess calories (HCC) - ICD9: 278.01, ICD10: E66.01 Weight increasing - Behavioral intervention - CONSULT TO WEIGHT MANAGEMENT NAVIGATION - TSH BLD 5. Stage 3b chronic kidney disease (HCC) - ICD9: 585.3, ICD10: N18.32 Await labs 6. Screening for colon cancer - ICD9: V76.51, ICD10: Z12.11 - CONSULT TO GENERAL SURGERY Meagan Yusuf PA-C documented in this encounterMercy [facility]08-01-2023 Miscellaneous Notes* Telephone Encounter - Ana Cardoza LPN - 02/15/2023 9:08 AM EDT Attempted to reach pt without success. A letter being mailed to pt letting her know a medication has been denied and to call the office for details. Ana Cardoza LPN * Telephone Encounter - Ana Cardoza LPN - 02/14/2023 10:26 AM EDT Left a message for pt to call the office and ask to speak to a nurse. Ana Cardoza LPN * Telephone Encounter - Aspen Bell LPN - 02/10/2023 12:26 PM EDT Left message for pt to contact office. Also sent pt a MC message to contact office. Aspen Bell LPN * Telephone Encounter - Ana Cardoza LPN - 02/03/2023 9:30 AM EDT 2nd attempt to reach pt by phone without success. Pt's mailbox is full. Try later. Ana RIVAS * Telephone Encounter - Ana Cardoza LPN - 02/01/2023 4:30 PM EDT Left a message for pt to call the office and ask to speak to a nurse. Ana Cardoza LPN * Telephone Encounter - Homer Bradford MD - 02/01/2023 4:14 PM EDT Let patient know refill for Baclofen was denied. She No showed to her last appt on 12/07/22 and willneed to be seen for a routine appt before refill provided. Advise her she has had 4 No Shows since 03/2022 and if we had been keeping up with sending her letters regarding this she would be terminated from the practice. * Telephone Encounter - Ana Cardoza LPN - 02/01/2023 3:13 PM EDT Patient has been identified by name and date of : Yes, Provider Dr. Bradford Date 02/01/23 Time 3:14 pm Pharmacy phones for refill(s): Requested Prescriptions Pending Prescriptions Disp Refills baclofen 10 mg tablet 60 tablet 5 Sig: Take 1 tablet by mouth twice daily as needed (muscle spasms). For leg cramps Date of last office visit in primary care: 10/21/22 Last 2 Encounter Wt Readings: Date: Wt: 10/04/2022 123.4 kg (272 lb) 09/15/2022 124.6 kg (274 lb 12.8 oz) Previous labs/tests for medication: Not applicable Thank you. Ana Cardoza LPN documented in this encounterMercy [facility]08-01-2023 History of Present illness Narrative* Aspen Bell LPN - 02/15/2023 8:48 AM EDT Scan on 02/15/2023 12:17 AM by Provider, ANTONI Pelayo: CT Scan documented in this encounterMercy Health [facility]07-20-2023 Miscellaneous Notes* Telephone Encounter - Kelsie Mercado - 02/03/2023 1:28 PM EDT Images from the original note were not included. Patent called requesting results. Dennys Pool to Pernell Rodriguez 02/02/23 4:06 PM Your circulation appears normal Dennys Pool DPM This [employer] message has not been read. Message above was read to patient. Kelsie Mercado MA documented in this encounterMercy Health [facility]06-28-2023 History of Present illness Narrative* Dennys Pool - 01/12/2023 1:52 PM EDT Last saw pcp: 10/21/22 Subjective: Patient presents to clinic c/o painful toenails. They state that the nails are especially painful with shoe gear and pressure. Patient states that nails 1-5 b/l are painful. Patient admits to being diabetic. No other pedal complaints at this time. Patient states no change in medications or medical history since last visit. Objective: Patient presents to clinic ambulating in diabetic shoes Vasc: DP and PT pulses are faintly palpable bilateral. CFT is less than 5 seconds bilateral. Skin temperature is warm to cool proximal to distal bilateral. There is minimal edema or varicosities noted. Neuro: Protective sensation is intact to the foot and toes when tested with the 5.07 SWM bilateral.Vibratory sensation is decreased at the hallux IPJ bilateral. The hallux is downgoing bilateral. Derm: Nails 1-5 b/l are painful, discolored-yellow, thick, crumbly, dystrophic and with subungal debris. Skin is dry and hair growth is decreased bilateral. There are callus to b/l hallux. no ulcerations, scars, verruca or other lesions noted. Ortho: Muscle strength is 5/5 for all pedal groups tested. Ankle joint DF is decreased with the knee extended with no pain or crepitus noted. 1st MPJ ROM is decreased bilateral. Assessment: (E11.49) Other diabetic neurological complication associated with type 2 diabetes mellitus (HCC) (primary encounter diagnosis) (B35.1) Onychomycosis (M79.675) Pain in toe of left foot (M79.674) Pain in toe of right foot (L85.9) Hyperkeratosis (R09.89) Diminished pulses in lower extremity Plan: Patient was seen and evaluated. Nails 1-5 bilateral were debrided in length and thickness. Callus reduced to b/l hallux with dremmel. Continue with lotion to feet daily. Continue with diabetic shoes Smoking cessation encouraged Pvr ordered. Patient was instructed on the continued importance of diabetic foot care along with proper diet andkeeping their blood sugar under control to prevent complications. Patient is to RTC in 3-4 months. Dennys Pool DPM * Kim Kiran LPN - 01/12/2023 1:33 PM EDT AMB ROOMING INTAKE FLOWSHEET DATA Pain Pain Level: 10 Pain Location: Toe Description: Sharp Duration Amount of Time: 1 Duration Units: Months Frequency: Intermittent Intervention/Comfort measure: Relaxation, Reposition Patient presents with: Left Foot - Established Patient, Diabetic Foot Care, Pain Right Foot - Established Patient, Diabetic Foot Care, Pain Kim Kiran LPN documented in this encounterMercy Health [facility]06-28-2023 Instructions* Patient Instructions* Dennys Pool - 01/12/2023 1:52 PM EDT Diabetes Foot Care Instructions When you have diabetes, proper foot care is very important. Poor foot care may lead to amputation of a foot or leg. As a person with diabetes, you are more vulnerable to foot problems, because diabetes can damage your nerves and reduce blood flow to your feet. Here are some diabetes foot care tips to follow: Wash and Dry Your Feet Daily Use mild soaps Use warm water Pat your skin dry; do not rub. Thoroughly dry your feet. After washing, use lotion on your feet to prevent cracking. Do not put lotion between your toes. Examine Your Feet Each Day Check the tops and bottoms of your feet. Have someone else look at your feet if you cannot see them. Check for dry, cracked skin. Look for blisters, cuts, scratches, or other sores. Check for redness, increased warmth, or tenderness when touching any area of your feet. Check for ingrown toenails, corns, and calluses. If you get a blister or sore from your shoes, do not pop it. Apply a bandage and wear a differentpair of shoes. Take Care of Your Toenails Cut toenails after bathing, when they are soft. Cut toenails straight across and smooth with a nail file. Avoid cutting into the corners of toes. Do not cut cuticles. If you have neuropathy (or decreased sensation in your feet) a popcorn attendant should always cut your toenails. Be Careful When Exercising Walk and exercise in comfortable shoes. Do not exercise when you have open sores on your feet. Protect Your Feet With Shoes and Socks Never go barefoot. Always protect your feet by wearing shoes or hard-soled slippers or footwear. Avoid shoes with high heels and pointed toes. Avoid shoes that expose your toes or heels (such as open-toed shoes or sandals). These types of shoes increase your risk for injury and potential infections. Try on new footwear with the type of socks you usually wear. Do not wear new shoes for more than an hour at a time. Change your socks daily. Look and feel inside your shoes before putting them on to make sure there are no foreign objects orrough areas. Avoid tight socks. Wear natural-fiber socks (cotton, wool, or a cotton-wool blend). Wear special shoes if your health care provider recommends them. Wear shoes/boots that will protect your feet from various weather conditions (cold, moisture, etc.). Make sure your shoes fit properly. If you have neuropathy (nerve damage), you may not notice that your shoes are too tight. Perform the footwear test described below. Footwear Test Use this simple test to see if your shoes fit correctly: Stand on a piece of paper. (Make sure you are standing and not sitting, because your foot changes shape when you stand.) Trace the outline of your foot. Trace the outline of your shoe. Compare the tracings: Is the shoe too narrow? Is your foot crammed into the shoe? The shoe should be at least 1/2 inch longer than your longest toe and as wide as your foot. Proper Shoe Choices The following types of shoes are best for people with diabetes Closed toes and heels Leather uppers without a seam inside At least 1/2 inch extra space at the end of your longest toe Inside of shoe should be soft with no rough areas Outer sole should be made of stiff material Shoes should be at least as wide as your feet Tips for Foot Care in Diabetes Don't wait to treat a minor foot problem if you have diabetes. Follow your health care provider's guidelines and first aid guidelines. Report foot injuries and infections to your health care provider immediately. Check water temperature with your elbow, not your foot. Do not use a heating pad on your feet. Do not cross your legs. Do not self-treat your corns, calluses, or other foot problems. Go to your health care provider or popcorn attendant to treat these conditions. documented in this [facility]20-[facility] Instructions* Patient Instructions* Alize Wilcox, OD - 01/04/2023 3:37 PM EDT Use erythromycin ointment as directed (twice daily x 1 week in right eye) Use warm compresses daily on both eyes Use diluted baby shampoo or Systane/Ocusoft lid wipes to clean eyelashes/eyelids daily documented in this encounterMer[facility]06-20-[facility]23 History of Present illness Narrative* Alize Wilcox, OD - 01/04/2023 3:34 PM EDT 1. Hordeolum externum of right lower eyelid 2. Meibomian gland dysfunction (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 eyes Recommended warm compresses and baby shampoo or lid wipes daily 3. Type 2 diabetes mellitus without retinopathy (HCC) Risk of diabetic changes and vision loss can be minimized by tight control of blood sugar, blood pressure, and cholesterol levels. Educated patient to continue care with primary care doctor and/or installation and repair technician to maintain optimum levels as they are important to avoid ocular complications. Encouraged patient to call the office immediately with any changes to vision or visual concerns. Advised to not wait until the next scheduled exam. 4. Nuclear sclerosis of both eyes Mild- monitor 5. Presbyopia Finalized spec rx Follow-up in 1 year or sooner as needed Alize Wilcox, OD January 04, 2023 3:34 PM documented in this encounterMer[facility]05-04-2023 Miscellaneous Notes* Telephone Encounter - Caterina Salazar RN - 11/18/2022 10:51 AM EDT Patient has been identified by name and date of : Yes, Provider Dr Bradford Date 11/18/22 Time 1052. Pharmacy phones for refill(s): Requested Prescriptions Pending Prescriptions Disp Refills furosemide (LASIX) 20 mg tablet 30 tablet 5 Sig: Take 1 tablet by mouth once daily. Date of last office visit in primary care: 10/21/22 Future visit: 12/07/22 Last 2 Encounter Wt Readings: Date: Wt: 10/04/2022 123.4 kg (272 lb) 09/15/2022 124.6 kg (274 lb 12.8 oz) Previous labs/tests for medication: Blood Pressure: BUN (mg/dL) Date Value 11/02/2022 21 05/29/2021 12 Sodium (mmol/L) Date Value 11/02/2022 143 05/29/2021 142 Last 1 Encounter BP Readings: Date: BP: 10/21/2022 124/76 Please advise. Thank you. Caterina Salazar RN documented in this encounterMer[facility]04-07-2023 Miscellaneous Notes* Telephone Encounter - Ana Cardoza LPN - 10/22/2022 10:10 AM EDT Pt calling for lab results. Okay to leave a message Ana Cardoza LPN documented in this [facility]04-06-2023 Instructions* Patient Instructions* Meagan Yusuf PA-C - 10/21/2022 12:34 PM EDT Take a Vitamin B complex (with atleast 30mg of B6) 3 times a day for nocturnal leg cramps. Discuss leg cramps with Dr. Calderón per Dr. Bradford. Aquaphor ointment for dryness (get store brand). documented in this encounterMer[facility]04-06-2023 History of Present illness Narrative* Meagan Yusuf PA-C - 10/21/2022 12:31 PM EDT Chief Complaint Patient presents with: Recheck LI Cottonbrendan Rodriguez is a 62 year old female who presents here today for Above Complaints.. Patient has been seen by PCP and myself for leg cramps. Initial labs were non diagnostic and we trial-ed baclofen. Initially she noted mild improvement that has since disappeared. She continues to have the cramps at rest, both during the day and at night. She was advised to discuss with neuro but she didn't realize this. Past medical history, appointments, medications, allergies reviewed. Previous Medical History PAST MEDICAL HISTORY Diagnosis Date ASHD (arteriosclerotic heart disease) 10/25/[address] Goins Bilateral leg edema 04/25/2015 Bipolar affective disorder (HCC) 04/25/[address] Colindres Chest pain 02/14/[address] Jacob in [facility]. Had a normal cardiac CTA in 2009 with no calcium. Chronic back pain greater than 3 months duration 04/02/2015 Chronic insomnia 03/12/2020 Ilya Calderón ([facility]) on melatonin. Chronic obstructive pulmonary disease ([facility]) 04/25/2015 Chronic pain 01/14/2014 Constipation 02/12/2014 [place] or callus 11/16/2015 Current use of proton pump inhibitor 10/11/2017 CVA (cerebral infarction) 01/14/2014 Diabetic eye exam ([facility]) 01/14/[address] Sanchez last done 03/02/2019 Diabetic foot ([facility]) 01/14/[address] Martins Extrapyramidal reaction 01/14/2014 Gastroesophageal reflux disease without esophagitis 04/25/2015 History of CVA (cerebrovascular accident) 04/25/[address] Ilya Calderón ([facility]) Hives 01/14/2014 Hypotension 01/14/2014 Sees Ilya Calderón ([facility]) and has her on fludrocortisone Incontinence of feces 07/08/2017 Irritable bowel syndrome with both constipation and diarrhea 04/28/2017 Low back pain 01/14/2014 Low vitamin B12 level 07/16/2022 Lumbosacral neuritis 04/16/2014 Major depressive disorder, recurrent episode, moderate ([facility]) 04/25/2015 On disability Migraine without aura and without status migrainosus, not intractable 04/28/[address] Calderón Mixed hyperlipidemia 01/14/2014 Mixed incontinence urge and stress (male)(female) 07/25/2018 Morbid obesity due to excess calories ([facility]) 10/27/2016 Muscle weakness (generalized) 07/25/2018 Myofascial pain 04/16/2014 Nodule of left lung 12/17/2015 CT 09/2018 still stable, no further CT's needed. Seen on CT of abd/pelv 11/2015. CT 06/2016 showed stable left nodule, Stable 09/2016 repeat 10/2017: stable repeat 06/2018 Paroxysmal atrial fibrillation (HCC) 11/23/2021 Perforation of left tympanic membrane 05/21/2019 chronic Physical deconditioning 04/02/2015 PMH - PAST MEDICAL HISTORY OF ovarian cysts PMH - PAST MEDICAL HISTORY OF bladder tipped, has incontience PMH - PAST MEDICAL HISTORY OF irregular heart beat Smoker 11/20/2020 Started age 15 at 1.5 PPD Stage 3b chronic kidney disease (HCC) 11/24/2020 Tardive dyskinesia 03/12/2020 Ilya Calderón ([facility]) Type 2 diabetes mellitus without complication (HCC) 04/25/2015 Urinary incontinence 07/08/2017 Well adult exam 10/27/2016 last done: 06/09/2022 Previous Surgical History PAST SURGICAL HISTORY Procedure Laterality Date *STRESS TEST PC 05/06/2016 WNL 2D ECHO (EXEP) 01/14/2014 EF=65% Trival OH, TI, PI, LA enlarged. CARPAL TUNNEL Bilateral 08/28 and 09/25 COLONOSCOPY FLX DX W/COLLJ SPEC WHEN PFRMD 2011 [facility] Colonoscopy, no polyps repeat 10 yrs CRYOCAUTERY OF CERVIX or twice DILATION & CURETTAGE DX&/THER NONOBSTETRIC Dilation & curettage ESOPHAGOGASTRODUODENOSCOPY TRANSORAL DIAGNOSTIC EGD LIG/TRNSXJ FLP TUBE ABDL/VAG APPR UNI/BI Tubal ligation PAST SURGICAL HISTORY OF 07/2015 had left medial elbow sugery but can't explain for what. PAST SURGICAL HISTORY OF Right 2011 repair rotator cuff and bone spurs PAST SURGICAL HISTORY OF 09/09/2020 bladder interstim for overactive bladder per Dr. Alba PAST SURGICAL HISTORY OF cholecystectomy PT ED UROLOGY 08/2020 IPG Family History FAMILY HISTORY Problem Relation Age of Onset Hypertension Mother Diabetes Mother other (hysterectomy) Mother fibroids other (hysterectomy) Maternal Grandmother fibroids Cancer Paternal Aunt Heart Son irregular heart beat Patient Allergies ALLERGIES Allergen Reactions Penicillins Hives Tetanus, Diphtheria* Swelling local reaction Benztropine Unknown Diazepam Unknown Imodium [Loperamide] Other: See Comments Chest pain Mellaril [Thioridaz* GI Upset Pneumovax 23 [Pneum* Intolerance Sulfa (Sulfonamide * GI Upset Causes vomiting and rash Tegretol [Carbamaze* GI Upset Current Medications Current Outpatient Medications on File Prior to Visit Medication Sig rimegepant (NURTEC ODT) 75 mg disintegrating tablet Take 1 tablet by mouth once daily as needed. cyanocobalamin (VITAMIN B-12) 500 mcg tablet Take 1 tablet by mouth once daily. baclofen (LIORESAL) 10 mg tablet Take 1 tablet by mouth twice daily as needed (muscle spasms). For leg cramps furosemide (LASIX) 20 mg tablet Take 1 tablet by mouth once daily. MEDICAL SUPPLY Please replace pull up every 1.5-2 hrs while awake and 1-3 times a night to reduce risk of skin break down and secondary infections. #240 a month Dx: N39.46 and R15.9 blood sugar diagnostic (BLOOD GLUCOSE TEST) test strip Test blood sugar(s) 1 times daily. Dx: Type 2 DM - Controlled E11.9 Insulin: No Lancets lancets Test blood sugar(s) 1 times daily. Dx: Type 2 DM - Controlled E11.9 Insulin: No citalopram hydrobromide (CELEXA) 10 mg tablet Take 1 tablet by mouth once daily. Per psychDr. Negrete (Patient taking differently: Take 10 mg by mouth once daily. Per psych, Dr. Negrete) amantadine HCl (SYMMETREL) 100 mg capsule Take 1 capsule by mouth twice daily. Per NeuroDr. Calderón apixaban (ELIQUIS) 5 mg tab(s) Take 1 tablet by mouth twice daily. Per Cardio, Fish fludrocortisone (FLORINEF) 0.1 mg tablet Take 1 tablet by mouth once daily. Per NeuroDr. Calderón QUEtiapine ER (SEROQUEL XR) 200 mg 24 hr tablet Take 1 tablet by mouth twice daily. Per psychDr. Negrete traZODone (DESYREL) 100 mg tablet daily at bedtime. ipratropium-albuterol (DUONEB) 0.5 mg-3 mg(2.5 mg base)/3 mL nebu Inhale 3 mL as instructed every 3hours as needed for wheezing/shortness of breath. For SOB related to ACUTE RESPIRATORY FAILURE WITHHYPOXIA (J96.01) while awake albuterol HFA (VENTOLIN HFA) 90 mcg/actuation inhaler INHALE 2 PUFFS INSTRUCTED EVERY FOUR HOURSAS NEEDED nitroglycerin sublingual (NITROQUICK) 0.4 mg SL tablet Dissolve 1 tablet under the tongue every 5 minutes as needed for chest pain. Docosahexanoic Acid-Eicosapent (FISH OIL) 120-180 mg capsule Take 2 g by mouth once daily. hydrocortisone (ANUSOL-HC) 2.5 % rectal cream by RECTAL route twice daily. COMPOUNDED PRESCRIPTION Adult diapers size XL Change diaper up to seven times a day. # 210 diapers With 5 refills Dx: R32 and R15.9 omega-3 fatty acids 1,000 mg cap Take 2 capsules by mouth once daily. LORazepam (ATIVAN) 0.5 mg tab Take 1 tablet by mouth twice daily as needed (anxiety). melatonin 10 mg cap Take 1 capsule by mouth daily at bedtime. Per Neuro, Dr. Calderón (Patient not taking: Reported on 10/21/2022) metoprolol tartrate, short acting, (LOPRESSOR) 25 mg tablet Take 1 tablet by mouth twice daily. Alexandr Pearson (Patient not taking: No sig reported) topiramate (TOPAMAX) 25 mg tablet Take 1 tablet by mouth twice daily. Per Neurology, Dr. Calderón (Patient not taking: No sig reported) mirabegron (MYRBETRIQ) 25 mg Tb24 Take 1 tablet by mouth once daily. Per Urology Dr. Alba (Patient not taking: Reported on 10/21/2022) insulin needles, DISPOSABLE, (PEN NEEDLE) 31 gauge x 5/16 Use one needle per dose per sliding scale bisacodyl (DULCOLAX, BISACODYL,) 10 mg supp 1 Suppository by RECTAL route once daily as needed for constipation. (Patient not taking: Reported on 10/21/2022) insulin lispro (HUMALOG KWIKPEN) 100 unit/mL Inject as per sliding scale: If 150 - 189 = 1 unit; 190 - 229 = 2 units; 230 -269 = 3 units; 270 - 309 = 4 units; 310 - 349 = 5 units; 350 - 399 = 6 units; 400 - 449 = 7 units > call Physician, subcutaneously three times a day for DM (Patient not taking: No sig reported) rizatriptan (MAXALT) 10 mg tablet Take 1 tablet by oral route every 2 hours no more than 2 in 24 hours (Patient not taking: Reported on 10/21/2022) sodium chloride 0.9 % soln Use 2 Sprays in the nose every 6 hours as needed. (Patient not taking: Reported on 10/21/2022) multivitamin (DAILY-JG) tablet Take 1 tablet by mouth every morning. (Patient not taking: No sig reported) No current facility-administered medications on file prior to visit. Social History Social History Tobacco Use Smoking status: Every Day Packs/day: 1.50 Years: 50.00 Pack years: 75.00 Types: Cigarettes Smokeless tobacco: Never Vaping Use Vaping Use: Never used Substance Use Topics Alcohol use: No Drug use: No Review of Symptoms REVIEW OF SYSTEMS See hpi EXAM: BP 124/76 (BP Site: Left Arm, BP Position: Sitting) Pulse 96 Temp 36.9 C (98.4 F) Resp 20 LMP 02/22/2006 General Appearance: Well appearing, alert, in no acute distress, well-hydrated, well nourished.. Health Maintenance List COLORECTAL CANCER SCREENING due on 09/27/2021 DILATED RETINAL EXAM due on 11/25/2021 MAMMOGRAM due on 06/24/2022 SHINGRIX VACCINE(1 of 2) due on 06/09/2023 COVID-19 VACCINE(1) due on 10/22/2023 URINE ALBUMIN:CREATININE RATIO due on 12/05/2022 HBA1C due on 01/13/2023 PAP TESTING due on 05/22/2023 HPV TESTING due on 05/22/2023 DIABETIC FOOT EXAM due on 06/09/2023 LDL CHOLESTEROL due on 07/15/2023 HEMOGLOBIN/HEMATOCRIT due on 07/15/2023 SERUM CREATININE due on 09/16/2023 ANNUAL PCP TEAM CHRONIC DISEASE VISIT due on 10/05/2023 HEPATITIS C SCREENING Completed HIV SCREENING Completed DTAP,TDAP,TD Discontinued ALPHA-1 ANTITRYPSIN DEFICIENCY SCREENING Discontinued SPIROMETRY Discontinued LUNG CANCER SCREENING Discontinued INFLUENZA Discontinued PNEUMOCOCCAL Discontinued Data reviewed ASSESSMENT/PLAN: 1. Leg cramps - ICD9: 729.82, ICD10: R25.2 Question if this could be RLS. Will have patient try vit b complex TID. However will reach out to neuro to see if they have specific recommendation or treatment options based on her other psych/neuro diagnosis and meds. Also discussed today with Dr. Bradford who agrees with plan Meagan Yusuf PA-C I spent a total of 30 minutes on the date of the service which included preparing to see the patient, [id number] patient care, completing clinical documentation, obtaining and/or reviewing separately obtained history, performing a medically appropriate examination, counseling and educating the pat ient/family/caregiver, communicating with other HCPs (not separately reported), and communicating results to the patient/family/caregiver. documented in this encounterMer[facility]04-06-2023 Miscellaneous Notes* Telephone Encounter - Ana Cardoza WALLCOVERING HANGER - 10/21/2022 11:46 AM EDT Patient has been identified by name and date of : Yes, Provider Dr. Bradford Date 10/21/22 Time 11:48 am Pharmacy phones for refill(s): Requested Prescriptions Pending Prescriptions Disp Refills hyoscyamine SR (LEVBID) 0.375 mg 12 hr tablet 60 tablet 5 Sig: Take 1 tablet by mouth twice daily. omeprazole (PRILOSEC) 40 mg capsule 30 capsule 5 Sig: Take 1 capsule by mouth once daily. spironolactone (ALDACTONE) 25 mg tablet 30 tablet 5 Sig: Take 1 tablet by mouth once daily. lovastatin (MEVACOR) 20 mg tablet 30 tablet 5 Sig: TAKE 1 TABLET BY MOUTH DAILY AT BEDTIME. FOR CHOLESTEROL. Date of last office visit in primary care: 10/21/22 next apt 12/07/22 Last 2 Encounter Wt Readings: Date: Wt: 10/04/2022 123.4 kg (272 lb) 09/15/2022 124.6 kg (274 lb 12.8 oz) Previous labs/tests for medication: Cholesterol: HDL Cholesterol (mg/dL) Date Value 11/01/2017 41 HDL Cholesterol, Nonfasting (mg/dL) Date Value 07/15/2022 40 05/29/2021 41 LDL Cholesterol (mg/dL) Date Value 11/01/2017 63 LDL Cholesterol, Nonfasting (mg/dL) Date Value 07/15/2022 89 05/29/2021 73 ALT (U/L) Date Value 09/15/2022 13 05/29/2021 11 Non HDL Cholesterol, Nonfasting (mg/dL) Date Value 07/15/2022 130 05/29/2021 93 Thank you. Ana Cardoza LPN documented in this encounterMer[facility]03-20-2023 History of Present illness Narrative* Azam Fam MD - 10/04/2022 6:20 PM EDT Chief Complaint Patient presents with: Rash HPI Pernell Rodriguez is a 62 year old female who presents here today for rash. Pt of Dr. Bradford who is here for rash. Rash to the scalp and face. Pt states that the rash is red, raised, small spots that started last night. Denies any pain but the rash is itchy. Left side of face and eyes are puffy. She was seen in ER 09/12 and treated with Prednisone, then was seen by Ladi Khan 09/15 and treated for Prednisone, Kenalog shot and Benadryl. Pt stated that the prednisone and benadryl helped. She denies any changes to her diet, her medications, soaps, etc. Pt states no one else in the home has the rash. Pt states she is unsure what is causing the rash, denies being ill prior to the rash starting. Past medical history, appointments, medications, allergies reviewed. Previous Medical History PAST MEDICAL HISTORY Diagnosis Date ASHD (arteriosclerotic heart disease) 10/25/[address] Goins Bilateral leg edema 04/25/2015 Bipolar affective disorder (HCC) 04/25/[address] Colindres Chest pain 02/14/[address] Jacob in [facility]. Had a normal cardiac CTA in 2009 with no calcium. Chronic back pain greater than 3 months duration 04/02/2015 Chronic insomnia 03/12/2020 Ilya Calderón ([facility]) on melatonin. Chronic obstructive pulmonary disease (HCC) 04/25/2015 Chronic pain 01/14/2014 Constipation 02/12/2014 [place] or callus 11/16/2015 Current use of proton pump inhibitor 10/11/2017 CVA (cerebral infarction) 01/14/2014 Diabetic eye exam ([facility]) 01/14/[address] Sanchez last done 03/02/2019 Diabetic foot ([facility]) 01/14/[address] Martins Extrapyramidal reaction 01/14/2014 Gastroesophageal reflux disease without esophagitis 04/25/2015 History of CVA (cerebrovascular accident) 04/25/[address] Ilya Calderón ([facility]) Hives 01/14/2014 Hypotension 01/14/2014 Sees Ilya Calderón ([facility]) and has her on fludrocortisone Incontinence of feces 07/08/2017 Irritable bowel syndrome with both constipation and diarrhea 04/28/2017 Low back pain 01/14/2014 Low vitamin B12 level 07/16/2022 Lumbosacral neuritis 04/16/2014 Major depressive disorder, recurrent episode, moderate ([facility]) 04/25/2015 On disability Migraine without aura and without status migrainosus, not intractable 04/28/[address] Calderón Mixed hyperlipidemia 01/14/2014 Mixed incontinence urge and stress (male)(female) 07/25/2018 Morbid obesity due to excess calories ([facility]) 10/27/2016 Muscle weakness (generalized) 07/25/2018 Myofascial pain 04/16/2014 Nodule of left lung 12/17/2015 CT 09/2018 still stable, no further CT's needed. Seen on CT of abd/pelv 11/2015. CT 06/2016 showed stable left nodule, Stable 09/2016 repeat 10/2017: stable repeat 06/2018 Paroxysmal atrial fibrillation (HCC) 11/23/2021 Perforation of left tympanic membrane 05/21/2019 chronic Physical deconditioning 04/02/2015 PMH - PAST MEDICAL HISTORY OF ovarian cysts PMH - PAST MEDICAL HISTORY OF bladder tipped, has incontience PMH - PAST MEDICAL HISTORY OF irregular heart beat Smoker 11/20/2020 Started age 15 at 1.5 PPD Stage 3b chronic kidney disease (HCC) 11/24/2020 Tardive dyskinesia 03/12/2020 Ilya Calderón ([facility]) Type 2 diabetes mellitus without complication ([facility]) 04/25/2015 Urinary incontinence 07/08/2017 Well adult exam 10/27/2016 last done: 06/09/2022 Previous Surgical History PAST SURGICAL HISTORY Procedure Laterality Date *STRESS TEST PC 05/06/2016 WNL 2D ECHO (EXEP) 01/14/2014 EF=65% Trival [place], TI, PI, LA enlarged. CARPAL TUNNEL Bilateral 08/28 and 09/25 COLONOSCOPY FLX DX W/COLLJ SPEC WHEN PFRMD 2011 [facility] Colonoscopy, no polyps repeat 10 yrs CRYOCAUTERY OF CERVIX or twice DILATION & CURETTAGE DX&/THER NONOBSTETRIC Dilation & curettage ESOPHAGOGASTRODUODENOSCOPY TRANSORAL DIAGNOSTIC EGD LIG/TRNSXJ FLP TUBE ABDL/VAG APPR UNI/BI Tubal ligation PAST SURGICAL HISTORY OF 07/2015 had left medial elbow sugery but can't explain for what. PAST SURGICAL HISTORY OF Right 2011 repair rotator cuff and bone spurs PAST SURGICAL HISTORY OF 09/09/2020 bladder interstim for overactive bladder per Dr. Alba PAST SURGICAL HISTORY OF cholecystectomy PT ED UROLOGY 08/2020 [facility] Family History FAMILY HISTORY Problem Relation Age of Onset Hypertension Mother Diabetes Mother other (hysterectomy) Mother fibroids other (hysterectomy) Maternal Grandmother fibroids Cancer Paternal Aunt Heart Son irregular heart beat Patient Allergies ALLERGIES Allergen Reactions Penicillins Hives Tetanus, Diphtheria* Swelling local reaction Benztropine Unknown Diazepam Unknown Imodium [Loperamide] Other: See Comments Chest pain Mellaril [Thioridaz* GI Upset Pneumovax 23 [Pneum* Intolerance Sulfa (Sulfonamide * GI Upset Causes vomiting and rash Tegretol [Carbamaze* GI Upset Current Medications Current Outpatient Medications on File Prior to Visit Medication Sig cyanocobalamin (VITAMIN B-12) 500 mcg tablet Take 1 tablet by mouth once daily. baclofen (LIORESAL) 10 mg tablet Take 1 tablet by mouth twice daily as needed (muscle spasms). For leg cramps furosemide (LASIX) 20 mg tablet Take 1 tablet by mouth once daily. MEDICAL SUPPLY Please replace pull up every 1.5-2 hrs while awake and 1-3 times a night to reduce risk of skin break down and secondary infections. #240 a month Dx: N39.46 and R15.9 lovastatin (MEVACOR) 20 mg tablet TAKE 1 TABLET BY MOUTH DAILY AT BEDTIME. FOR CHOLESTEROL. spironolactone (ALDACTONE) 25 mg tablet Take 1 tablet by mouth once daily. omeprazole (PRILOSEC) 40 mg capsule Take 1 capsule by mouth once daily. hyoscyamine SR (LEVBID) 0.375 mg 12 hr tablet Take 1 tablet by mouth twice daily. blood sugar diagnostic (BLOOD GLUCOSE TEST) test strip Test blood sugar(s) 1 times daily. Dx: Type 2 DM - Controlled E11.9 Insulin: No Lancets lancets Test blood sugar(s) 1 times daily. Dx: Type 2 DM - Controlled E11.9 Insulin: No citalopram hydrobromide (CELEXA) 10 mg tablet Take 1 tablet by mouth once daily. Per psych, Dr. Negrete (Patient taking differently: Take 10 mg by mouth once daily. Per psych, Dr. Negrete) amantadine HCl (SYMMETREL) 100 mg capsule Take 1 capsule by mouth twice daily. Per NeuroDr. Calderón apixaban (ELIQUIS) 5 mg tab(s) Take 1 tablet by mouth twice daily. Per Cardio, Alexandr fludrocortisone (FLORINEF) 0.1 mg tablet Take 1 tablet by mouth once daily. Per NeuroDr. Calderón melatonin 10 mg cap Take 1 capsule by mouth daily at bedtime. Per Neuro, Dr. Calderón metoprolol tartrate, short acting, (LOPRESSOR) 25 mg tablet Take 1 tablet by mouth twice daily. Alexandr Pearson (Patient not taking: No sig reported) QUEtiapine ER (SEROQUEL XR) 200 mg 24 hr tablet Take 1 tablet by mouth twice daily. Per psych, Dr. Negrete topiramate (TOPAMAX) 25 mg tablet Take 1 tablet by mouth twice daily. Per Neurology, Dr. Calderón (Patient not taking: No sig reported) mirabegron (MYRBETRIQ) 25 mg Tb24 Take 1 tablet by mouth once daily. Per Urology Dr. Alba traZODone (DESYREL) 100 mg tablet daily at bedtime. insulin needles, DISPOSABLE, (PEN NEEDLE) 31 gauge x 5/16 Use one needle per dose per sliding scale bisacodyl (DULCOLAX, BISACODYL,) 10 mg supp 1 Suppository by RECTAL route once daily as needed for constipation. ipratropium-albuterol (DUONEB) 0.5 mg-3 mg(2.5 mg base)/3 mL nebu Inhale 3 mL as instructed every 3hours as needed for wheezing/shortness of breath. For SOB related to ACUTE RESPIRATORY FAILURE WITHHYPOXIA (J96.01) while awake albuterol HFA (VENTOLIN HFA) 90 mcg/actuation inhaler INHALE 2 PUFFS INSTRUCTED EVERY FOUR HOURSAS NEEDED insulin lispro (HUMALOG KWIKPEN) 100 unit/mL Inject as per sliding scale: If 150 - 189 = 1 unit; 190 - 229 = 2 units; 230 -269 = 3 units; 270 - 309 = 4 units; 310 - 349 = 5 units; 350 - 399 = 6 units; 400 - 449 = 7 units > call Physician, subcutaneously three times a day for DM (Patient not taking: No sig reported) nitroglycerin sublingual (NITROQUICK) 0.4 mg SL tablet Dissolve 1 tablet under the tongue every 5 minutes as needed for chest pain. rizatriptan (MAXALT) 10 mg tablet Take 1 tablet by oral route every 2 hours no more than 2 in 24 hours sodium chloride 0.9 % soln Use 2 Sprays in the nose every 6 hours as needed. Docosahexanoic Acid-Eicosapent (FISH OIL) 120-180 mg capsule Take 2 g by mouth once daily. hydrocortisone (ANUSOL-HC) 2.5 % rectal cream by RECTAL route twice daily. multivitamin (DAILY-JG) tablet Take 1 tablet by mouth every morning. (Patient not taking: No sig reported) COMPOUNDED PRESCRIPTION Adult diapers size XL Change diaper up to seven times a day. # 210 diapers With 5 refills Dx: R32 and R15.9 omega-3 fatty acids 1,000 mg cap Take 2 capsules by mouth once daily. LORazepam (ATIVAN) 0.5 mg tab Take 1 tablet by mouth twice daily as needed (anxiety). No current facility-administered medications on file prior to visit. Social History Social History Tobacco Use Smoking status: Every Day Packs/day: 1.50 Years: 50.00 Pack years: 75.00 Types: Cigarettes Smokeless tobacco: Never Vaping Use Vaping Use: Never used Substance Use Topics Alcohol use: No Drug use: No EXAM: BP 124/78 Pulse 90 Resp 20 Wt 123.4 kg (272 lb) LMP 02/22/2006 BMI 46.69 kg/m General Appearance: Well appearing, alert, in no acute distress, well-hydrated, well nourished.Obese Skin: Allergic rash with swelling to forehead, scalp, left eye, elft side of face and left ear. Health Maintenance List COVID-19 VACCINE(1) Never done COLORECTAL CANCER SCREENING due on 09/27/2021 DILATED RETINAL EXAM due on 11/25/2021 MAMMOGRAM due on 06/24/2022 SHINGRIX VACCINE(1 of 2) due on 06/09/2023 URINE ALBUMIN:CREATININE RATIO due on 12/05/2022 HBA1C due on 01/13/2023 PAP TESTING due on 05/22/2023 HPV TESTING due on 05/22/2023 DIABETIC FOOT EXAM due on 06/09/2023 LDL CHOLESTEROL due on 07/15/2023 HEMOGLOBIN/HEMATOCRIT due on 07/15/2023 ANNUAL PCP TEAM CHRONIC DISEASE VISIT due on 09/16/2023 SERUM CREATININE due on 09/16/2023 HEPATITIS C SCREENING Completed HIV SCREENING Completed DTAP,TDAP,TD Discontinued ALPHA-1 ANTITRYPSIN DEFICIENCY SCREENING Discontinued SPIROMETRY Discontinued LUNG CANCER SCREENING Discontinued INFLUENZA Discontinued PNEUMOCOCCAL Discontinued Data reviewed None ASSESSMENT/PLAN: 1. Rash - ICD9: 782.1, ICD10: R21 Allergic Dermatitis Will place on longer prednisone taper, along with benedryl Start 15 day taper Prednisone Start Benadryl Follow up as needed or if not improving. I agree with the Chief Complaint, ROS, and Past Histories independently gathered by the clinical faculty support coordinator and the remaining scribed note accurately describes my personal service to the patient. Medical Decision Making: Problems: Low: Acute, uncomplicated illness or injury Risk: Moderate: Drug management Medical Decision Making Level: 3 - Low Azam Fam MD The documentation for this note was completed by Carol Armenta Ma acting as scribe for Azam Fam MD. October 04, 2022 6:20 PM. Carol Armetna Ma documented in this encounterMer[facility]03-20-2023 Miscellaneous Notes* Telephone Encounter - Azam Fam MD - 10/04/2022 5:24 PM EDT Noted Azam Fam MD * Telephone Encounter - Caterina Salazar RN - 10/04/2022 3:26 PM EDT Protocol recommends see provider in 4 hours. Pt scheduled with Dr Fam at 620 pm tonight. Care plan reviewed with patient. Patient voices understanding. Advised patient that if symptoms get worse to be evaluated in Urgent Care or ER. Reason for Disposition [1] Looks infected (spreading redness, pus) AND [2] diabetes mellitus or weak immune system (e.g., HIV positive, cancer chemo, splenectomy, organ transplant, chronic steroids) Answer Assessment - Initial Assessment Questions 1. APPEARANCE of RASH: Red raised. 2. LOCATION: Head, forehead, face, and ear. 3. NUMBER: whole bunch of small spots. 4. SIZE: Little tiny pencil dot size 5. ONSET: The rash started on her head and face last night 6. ITCHING: Reports itching 10/10. 7. PAIN: - NONE (0): no pain - MILD (1-3): doesn't interfere with normal activities - MODERATE (4-7): interferes with normal activities or awakens from sleep - SEVERE (8-10): excruciating pain, unable to do any normal activities 8/10 for pain constant itching. 8. OTHER SYMPTOMS: Face swelling and ear pain. 9. : Postmenopausal Protocols used: Rash or Redness - Duvkreont-SDHFD-MB documented in this encounterMercy Health [facility]03-18-2023 History of Present illness Narrative* Rajani Granger MA - 10/02/2022 9:14 AM EDT Scan on 09/29/2022 1:13 PM by External Provider: Consultation - Neurology Rajani Granger MA documented in this encounterMercy [facility]03-03-2023 History of Present illness Narrative* Rajani Granger MA - 09/17/2022 2:43 PM EST Scan on 09/12/2022 11:23 AM by External Provider: Consultation - Emergency Medicine Rajani Granger MA documented in this encounterMercy Health [facility]03-02-2023 Miscellaneous Notes* Telephone Encounter - Ladi Khan APRN.CNP - 09/16/2022 7:32 AM EST Orders placed. * Telephone Encounter - Ladi Khan APRN.CNP - 09/16/2022 7:31 AM EST ----- Message from Ha Cano sent at 09/15/2022 8:46 PM EST ----- Regarding: Request for Redraw Please place a new order for WSR, if clinically indicated. This notification serves to inform you that a test(s) have been canceled for reason(s) denoted on the result report within the Epic chart. Thank you. If any questions, please contact Laboratory Client Services. DO NOT REPLY TO THIS MESSAGE. documented in this encounterMercy Health [facility]01-19-2023 Instructions* Patient Instructions* Dennys Pool - 08/05/2022 11:32 AM EST Diabetes Foot Care Instructions When you have diabetes, proper foot care is very important. Poor foot care may lead to amputation of a foot or leg. As a person with diabetes, you are more vulnerable to foot problems, because diabetes can damage your nerves and reduce blood flow to your feet. Here are some diabetes foot care tips to follow: Wash and Dry Your Feet Daily Use mild soaps Use warm water Pat your skin dry; do not rub. Thoroughly dry your feet. After washing, use lotion on your feet to prevent cracking. Do not put lotion between your toes. Examine Your Feet Each Day Check the tops and bottoms of your feet. Have someone else look at your feet if you cannot see them. Check for dry, cracked skin. Look for blisters, cuts, scratches, or other sores. Check for redness, increased warmth, or tenderness when touching any area of your feet. Check for ingrown toenails, corns, and calluses. If you get a blister or sore from your shoes, do not pop it. Apply a bandage and wear a differentpair of shoes. Take Care of Your Toenails Cut toenails after bathing, when they are soft. Cut toenails straight across and smooth with a nail file. Avoid cutting into the corners of toes. Do not cut cuticles. If you have neuropathy (or decreased sensation in your feet) a popcorn attendant should always cut your toenails. Be Careful When Exercising Walk and exercise in comfortable shoes. Do not exercise when you have open sores on your feet. Protect Your Feet With Shoes and Socks Never go barefoot. Always protect your feet by wearing shoes or hard-soled slippers or footwear. Avoid shoes with high heels and pointed toes. Avoid shoes that expose your toes or heels (such as open-toed shoes or sandals). These types of shoes increase your risk for injury and potential infections. Try on new footwear with the type of socks you usually wear. Do not wear new shoes for more than an hour at a time. Change your socks daily. Look and feel inside your shoes before putting them on to make sure there are no foreign objects orrough areas. Avoid tight socks. Wear natural-fiber socks (cotton, wool, or a cotton-wool blend). Wear special shoes if your health care provider recommends them. Wear shoes/boots that will protect your feet from various weather conditions (cold, moisture, etc.). Make sure your shoes fit properly. If you have neuropathy (nerve damage), you may not notice that your shoes are too tight. Perform the footwear test described below. Footwear Test Use this simple test to see if your shoes fit correctly: Stand on a piece of paper. (Make sure you are standing and not sitting, because your foot changes shape when you stand.) Trace the outline of your foot. Trace the outline of your shoe. Compare the tracings: Is the shoe too narrow? Is your foot crammed into the shoe? The shoe should be at least 1/2 inch longer than your longest toe and as wide as your foot. Proper Shoe Choices The following types of shoes are best for people with diabetes Closed toes and heels Leather uppers without a seam inside At least 1/2 inch extra space at the end of your longest toe Inside of shoe should be soft with no rough areas Outer sole should be made of stiff material Shoes should be at least as wide as your feet Tips for Foot Care in Diabetes Don't wait to treat a minor foot problem if you have diabetes. Follow your health care provider's guidelines and first aid guidelines. Report foot injuries and infections to your health care provider immediately. Check water temperature with your elbow, not your foot. Do not use a heating pad on your feet. Do not cross your legs. Do not self-treat your corns, calluses, or other foot problems. Go to your health care provider or popcorn attendant to treat these conditions. documented in this encounterMercy [facility]01-19-2023 History of Present illness Narrative* Dennys Pool - 08/05/2022 11:22 AM EST Last saw Meagan Yusuf: 07/15/22 Subjective: Patient presents to clinic c/o painful toenails. They state that the nails are especially painful with shoe gear and pressure. Patient states that nails right hallux are painful. Patient states that she recently bumped her left 5th toenail and this has fallen off. She denies any redness, drainage or pain. Patient admits to being diabetic. No other pedal complaints at this time. Patient states no change in medications or medical history since last visit. Objective: Patient presents to clinic ambulating in diabetic shoes Vasc: DP and PT pulses are faintly palpable bilateral. CFT is less than 5 seconds bilateral. Skin temperature is warm to cool proximal to distal bilateral. There is mild edema or varicosities noted. Neuro: Protective sensation is intact to the foot and toes when tested with the 5.07 SWM bilateral.Vibratory sensation is absent at the hallux IPJ bilateral. The hallux is downgoing bilateral. Derm: Nails 1-5 b/l are painful, discolored-yellow, thick, crumbly, dystrophic and with subungal debris. Skin is dry, thin, pallor and hair growth is absent bilateral. There are callus to b/l hallux and right 5th metatarsal. No ulcerations, scars, verruca or other lesions noted. Ortho: Muscle strength is 5/5 for all pedal groups tested. Ankle joint DF is decreased with the knee extended with no pain or crepitus noted. 1st MPJ ROM is decreased bilateral. Assessment: (E11.49) Other diabetic neurological complication associated with type 2 diabetes mellitus (HCC) (primary encounter diagnosis) (B35.1) Onychomycosis (M79.675) Pain in toe of left foot (M79.674) Pain in toe of right foot (L85.9) Hyperkeratosis Plan: Patient was seen and evaluated. Nails 1-5 bilateral were debrided in length and thickness. Callus reduced with dremmel. Continue with diabetic shoe Contineu with lotion to feet daily Smoking cessation discussed Patient was instructed on the continued importance of diabetic foot care along with proper diet andkeeping their blood sugar under control to prevent complications. Patient is to RTC in 3-4 months. Dennys Pool DPM * Caterina Brown RN - 08/05/2022 11:07 AM EST Patient presents with: Left 5th Toe - Established Patient, Nail Check Right Great Toe - Established Patient, Nail Check Patient presents for Left 5th toe nail falling off about 2-3 weeks ago. No redness or swelling to toe. Right great toe nail cracked today. documented in this encounterMercy [facility]01-11-2023 Miscellaneous Notes* Telephone Encounter - JUDIE Goldstein - 07/28/2022 11:56 AM EST Community Transportation resource list mailed to patient home. * Telephone Encounter - JUDIE Goldstein - 07/23/2022 3:09 PM EST Sw received message that patient had called in to office and was having to cancel her upcoming eye appt due to no oil field caser to assist with ride to appts. Sw left message for patient that she would reach out to patient next week and discuss below oil field casergarde manager from [facility], and remind patient of [facility] ride services. * Telephone Encounter - JUDIE Goldstein - 07/23/2022 11:24 AM EST Sw left patient message to return Sw call. Sw following up with patient regarding below oil field casergarde manager. * Telephone Encounter - JUDIE Goldstein - 07/23/2022 9:27 AM EST Aaron spoke with Steven,[facility], in regards to patient interest in oil field caser. Steven notes that patient oil field caser was one the had left the agency. There is a wait list at this time forcase management services. Aaron noted that patient had expressed that she had benefited from oil field caser in the past. Was beneficial to patient regarding transportation and coordination of mental health and medical appts. Steven notes that she will make note of patient interest in being assigned a oil field caser, and will work with counseling services to make sure patient is on wait list. * Telephone Encounter - JUDIE Goldstein - 07/21/2022 9:54 AM EST Steven-[facility] Medical Records left Sw a message asking that Sw refax consent for release. Steven notes that release came through a little to dark and was hard to read. Aaron faxed release to [phone]. * Telephone Encounter - JUDIE Goldstein - 07/09/2022 8:56 AM EST [facility] called [facility] to check and see if they received consent for release that Aaron faxedon 07/07/22. Steven-Medical Records noted that she did not see it scanned to chart. 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 AARON notes she will be on vacation next week and will call to check on release when she is back in the office. Aaron interested in status of patient and having oil field caser. * Telephone Encounter - JUDIE Goldstein - 07/07/2022 12:37 PM EST Aaron received consent for release to be able to coordinate patient services with [facility]. Aaron will fax consent form to [facility] fax#[phone]. documented in this encounterMer[facility]01-10-2023 Miscellaneous Notes* Telephone Encounter - JUDIE Goldstein - 07/27/2022 2:59 PM EST See Aaron note 07/07/22. Aaron spoke to patient and let her know that Aaron has spoken with [facility] and noted that patient had expressed to this AARON interest in being assigned to a oil field caser, there is a wait list for case management. Aaron reviewed with patient using her insurance-[employer] for rides to medical appts. Aaron noted patient would need to call member services number on card to schedule ride. [facility]. Would like information about their ride services and [employer] ride program. Aaron noted that she would look into printing off ride information and mail to patient home. * Telephone Encounter - Caterina Salazar RN - 07/20/2022 4:13 PM EST Per Pts request mailed providers previous message with results to Pts house. * Telephone Encounter - Caterina Salazar RN - 07/20/2022 8:47 AM EST Pt called and is notified of providers results and instructions. Pt voices understanding. Pt statesher CM that schedules her appointments left and she has issues getting to her appointments. She states she signed a paper with Dr Bradford and out SW about getting a CM. Put Pt through to scheduling toset up appointment with Dr Pool to get her toe nails cut, she says her CM never took her the last time she was supposed to go. Caterina Salazar RN * Telephone Encounter - Homer Bradford MD - 07/16/2022 7:26 PM EST Let patient know her CBC, electrolytes, liver finctions and Magnesium were all ok. Her A1c is good at 6.1% and does not need to be re-started on any new diabetic meds. Kidney functions are stable. If she hasn't she needs to continue seeing her kidney provider, dr. Bettencourt. Her lipid panel showed Trigs elevated at 207 (goal less than 150 and last two times was 160 and 102) this is related to too much fat in the diet. Her HDL is low at 40 (goal>50) increased exercise will help. Her LDL is slightly higher then what it tends to be at 89 and typical in the low 70's with is better. This is also related to diet. Her B12 in on the low end of normal and would advise she start OTC B12 500 mcg one a day. None of her labs would explain the leg cramps and would advise she also discuss this with Dr. Calderón her Neurologist. * Telephone Encounter - Caterina Salazar RN - 07/16/2022 3:58 PM EST Pt called in asking for provider to look over lab results. Please call and advise. documented in this encounterMercy [facility]12-29-2022 History of Present illness Narrative* Meagan Yusuf PA-C - 07/15/2022 1:54 PM EST Chief Complaint Patient presents with: Recheck: Patient is here for follow up on legs cramps HPI Pernell Rodriguez is a 62 year old female who presents here today for Above Complaints.. Patient was seen for physical [facility] and had complaints of leg cramp. Patient reports her cramping has been going on for about 6 months. Worse in left leg. Right leg improved. She did labs today so not available at time of visit. Most of the time the cramping is worse at rest when she is sitting or laying down. Or in the middleof the night. Past medical history, appointments, medications, allergies reviewed. Previous Medical History PAST MEDICAL HISTORY Diagnosis Date ASHD (arteriosclerotic heart disease) 10/25/[address] Goins Bilateral leg edema 04/25/2015 Bipolar affective disorder (HCC) 04/25/[address] Colindres Chest pain 02/14/[address] Jacob in [facility]. Had a normal cardiac CTA in 2009 with no calcium. Chronic back pain greater than 3 months duration 04/02/2015 Chronic insomnia 03/12/2020 Ilya Calderón ([facility]) on melatonin. Chronic obstructive pulmonary disease (HCC) 04/25/2015 Chronic pain 01/14/2014 Constipation 02/12/2014 [place] or callus 11/16/2015 Current use of proton pump inhibitor 10/11/2017 CVA (cerebral infarction) 01/14/2014 Diabetic eye exam (HCC) 01/14/[address] Sanchez last done 03/02/2019 Diabetic foot (HCC) 01/14/[address] Martins Extrapyramidal reaction 01/14/2014 Gastroesophageal reflux disease without esophagitis 04/25/2015 History of CVA (cerebrovascular accident) 04/25/[address] Ilya Calderón ([facility]) Hives 01/14/2014 Hypotension 01/14/2014 Sees Ilya Calderón ([facility]) and has her on fludrocortisone Incontinence of feces 07/08/2017 Irritable bowel syndrome with both constipation and diarrhea 04/28/2017 Low back pain 01/14/2014 Lumbosacral neuritis 04/16/2014 Major depressive disorder, recurrent episode, moderate (HCC) 04/25/2015 On disability Migraine without aura and without status migrainosus, not intractable 04/28/[address] Calderón Mixed hyperlipidemia 01/14/2014 Mixed incontinence urge and stress (male)(female) 07/25/2018 Morbid obesity due to excess calories (HCC) 10/27/2016 Muscle weakness (generalized) 07/25/2018 Myofascial pain 04/16/2014 Nodule of left lung 12/17/2015 CT 09/2018 still stable, no further CT's needed. Seen on CT of abd/pelv 11/2015. CT 06/2016 showed stable left nodule, Stable 09/2016 repeat 10/2017: stable repeat 06/2018 Paroxysmal atrial fibrillation (HCC) 11/23/2021 Perforation of left tympanic membrane 05/21/2019 chronic Physical deconditioning 04/02/2015 PMH - PAST MEDICAL HISTORY OF ovarian cysts PMH - PAST MEDICAL HISTORY OF bladder tipped, has incontience PMH - PAST MEDICAL HISTORY OF irregular heart beat Smoker 11/20/2020 Started age 15 at 1.5 PPD Stage 3b chronic kidney disease (HCC) 11/24/2020 Tardive dyskinesia 03/12/2020 Ilya Calderón ([facility]) Type 2 diabetes mellitus without complication ([facility]) 04/25/2015 Urinary incontinence 07/08/2017 Well adult exam 10/27/2016 last done: 06/09/2022 Previous Surgical History PAST SURGICAL HISTORY Procedure Laterality Date *STRESS TEST PC 05/06/2016 WNL 2D ECHO (EXEP) 01/14/2014 EF=65% Trival [place], TI, PI, LA enlarged. CARPAL TUNNEL Bilateral 08/28 and 09/25 COLONOSCOPY FLX DX W/COLLJ SPEC WHEN PFRMD 2011 tahir baron Colonoscopy, no polyps repeat 10 yrs CRYOCAUTERY OF CERVIX or twice DILATION & CURETTAGE DX&/THER NONOBSTETRIC Dilation & curettage ESOPHAGOGASTRODUODENOSCOPY TRANSORAL DIAGNOSTIC EGD LIG/TRNSXJ FLP TUBE ABDL/VAG APPR UNI/BI Tubal ligation PAST SURGICAL HISTORY OF 07/2015 had left medial elbow sugery but can't explain for what. PAST SURGICAL HISTORY OF Right 2012 repair rotator cuff and bone spurs PAST SURGICAL HISTORY OF 09/09/2020 bladder interstim for overactive bladder per Dr. Alba PAST SURGICAL HISTORY OF cholecystectomy PT ED UROLOGY 08/2020 IPG Family History FAMILY HISTORY Problem Relation Age of Onset Hypertension Mother Diabetes Mother other (hysterectomy) Mother fibroids other (hysterectomy) Maternal Grandmother fibroids Cancer Paternal Aunt Heart Son irregular heart beat Patient Allergies ALLERGIES Allergen Reactions Penicillins Hives Tetanus, Diphtheria* Swelling local reaction Benztropine Unknown Diazepam Unknown Imodium [Loperamide] Other: See Comments Chest pain Mellaril [Thioridaz* GI Upset Pneumovax 23 [Pneum* Intolerance Sulfa (Sulfonamide * GI Upset Causes vomiting and rash Tegretol [Carbamaze* GI Upset Current Medications Current Outpatient Medications on File Prior to Visit Medication Sig furosemide (LASIX) 20 mg tablet Take 1 tablet by mouth once daily. lovastatin (MEVACOR) 20 mg tablet TAKE 1 TABLET BY MOUTH DAILY AT BEDTIME. FOR CHOLESTEROL. omeprazole (PRILOSEC) 40 mg capsule Take 1 capsule by mouth once daily. hyoscyamine SR (LEVBID) 0.375 mg 12 hr tablet Take 1 tablet by mouth twice daily. blood sugar diagnostic (BLOOD GLUCOSE TEST) test strip Test blood sugar(s) 1 times daily. Dx: Type 2 DM - Controlled E11.9 Insulin: No Lancets lancets Test blood sugar(s) 1 times daily. Dx: Type 2 DM - Controlled E11.9 Insulin: No citalopram hydrobromide (CELEXA) 10 mg tablet Take 1 tablet by mouth once daily. Per psychDr. Negrete (Patient taking differently: Take 10 mg by mouth once daily. Per psych, Dr. Negrete) apixaban (ELIQUIS) 5 mg tab(s) Take 1 tablet by mouth twice daily. Per Cardio, Fish melatonin 10 mg cap Take 1 capsule by mouth daily at bedtime. Per Neuro, Dr. Calderón traZODone (DESYREL) 100 mg tablet daily at bedtime. insulin needles, DISPOSABLE, (PEN NEEDLE) 31 gauge x 5/16 Use one needle per dose per sliding scale bisacodyl (DULCOLAX, BISACODYL,) 10 mg supp 1 Suppository by RECTAL route once daily as needed for constipation. ipratropium-albuterol (DUONEB) 0.5 mg-3 mg(2.5 mg base)/3 mL nebu Inhale 3 mL as instructed every 3hours as needed for wheezing/shortness of breath. For SOB related to ACUTE RESPIRATORY FAILURE WITHHYPOXIA (J96.01) while awake nitroglycerin sublingual (NITROQUICK) 0.4 mg SL tablet Dissolve 1 tablet under the tongue every 5 minutes as needed for chest pain. hydrocortisone (ANUSOL-HC) 2.5 % rectal cream by RECTAL route twice daily. COMPOUNDED PRESCRIPTION Adult diapers size XL Change diaper up to seven times a day. # 210 diapers With 5 refills Dx: R32 and R15.9 omega-3 fatty acids 1,000 mg cap Take 2 capsules by mouth once daily. LORazepam (ATIVAN) 0.5 mg tab Take 1 tablet by mouth twice daily as needed (anxiety). MEDICAL SUPPLY Please replace pull up every 1.5-2 hrs while awake and 1-3 times a night to reduce risk of skin break down and secondary infections. #240 a month Dx: N39.46 and R15.9 spironolactone (ALDACTONE) 25 mg tablet Take 1 tablet by mouth once daily. amantadine HCl (SYMMETREL) 100 mg capsule Take 1 capsule by mouth twice daily. Per Neuro, Dr. Calderón fludrocortisone (FLORINEF) 0.1 mg tablet Take 1 tablet by mouth once daily. Per Neuro, Dr. Calderón metoprolol tartrate, short acting, (LOPRESSOR) 25 mg tablet Take 1 tablet by mouth twice daily. Alexandr Pearson (Patient not taking: Reported on 11/27/2021 ) QUEtiapine ER (SEROQUEL XR) 200 mg 24 hr tablet Take 1 tablet by mouth twice daily. Per psych, Dr. Negrete (Patient not taking: Reported on 06/09/2022) topiramate (TOPAMAX) 25 mg tablet Take 1 tablet by mouth twice daily. Per Neurology, Dr. Calderón (Patient not taking: Reported on 11/27/2021 ) mirabegron (MYRBETRIQ) 25 mg Tb24 Take 1 tablet by mouth once daily. Per Urology Dr. Alba albuterol HFA (VENTOLIN HFA) 90 mcg/actuation inhaler INHALE 2 PUFFS INSTRUCTED EVERY FOUR HOURSAS NEEDED insulin lispro (HUMALOG KWIKPEN) 100 unit/mL Inject as per sliding scale: If 150 - 189 = 1 unit; 190 - 229 = 2 units; 230 -269 = 3 units; 270 - 309 = 4 units; 310 - 349 = 5 units; 350 - 399 = 6 units; 400 - 449 = 7 units > call Physician, subcutaneously three times a day for DM (Patient not taking: Reported on 11/27/2021 ) rizatriptan (MAXALT) 10 mg tablet Take 1 tablet by oral route every 2 hours no more than 2 in 24 hours sodium chloride 0.9 % soln Use 2 Sprays in the nose every 6 hours as needed. Docosahexanoic Acid-Eicosapent (FISH OIL) 120-180 mg capsule Take 2 g by mouth once daily. (Patientnot taking: Reported on 06/09/2022) multivitamin (DAILY-JG) tablet Take 1 tablet by mouth every morning. (Patient not taking: Reported on 06/09/2022) No current facility-administered medications on file prior to visit. Social History Social History Tobacco Use Smoking status: Every Day Packs/day: 1.50 Years: 50.00 Pack years: 75.00 Types: Cigarettes Smokeless tobacco: Never Vaping Use Vaping Use: Never used Substance Use Topics Alcohol use: No Drug use: No Review of Symptoms REVIEW OF SYSTEMS See hpi EXAM: BP 102/60 (BP Site: Right Leg, BP Position: Sitting, BP Cuff Size: Large Adult) Pulse 76 Resp 18 Wt 119.3 kg (263 lb) LMP 02/22/2006 BMI 45.14 kg/m General Appearance: Well appearing, alert, in no acute distress, well-hydrated, well nourished.. Extremities: No deformities, edema, skin discoloration, clubbing or cyanosis. Good capillary refill. . Health Maintenance List COVID-19 VACCINE(1) Never done COLORECTAL CANCER SCREENING due on 09/27/2021 DILATED RETINAL EXAM due on 11/25/2021 HEMOGLOBIN/HEMATOCRIT due on 12/08/2021 HBA1C due on 06/06/2022 MAMMOGRAM due on 06/24/2022 SHINGRIX VACCINE(1 of 2) due on 06/09/2023 LDL CHOLESTEROL due on 12/04/2022 URINE ALBUMIN:CREATININE RATIO due on 12/05/2022 SERUM CREATININE due on 12/15/2022 PAP TESTING due on 05/22/2023 HPV TESTING due on 05/22/2023 DIABETIC FOOT EXAM due on 06/09/2023 ANNUAL PCP TEAM CHRONIC DISEASE VISIT due on 06/09/2023 HEPATITIS C SCREENING Completed HIV SCREENING Completed DTAP,TDAP,TD Discontinued ALPHA-1 ANTITRYPSIN DEFICIENCY SCREENING Discontinued SPIROMETRY Discontinued LUNG CANCER SCREENING Discontinued INFLUENZA Discontinued PNEUMOCOCCAL Discontinued Data reviewed ASSESSMENT/PLAN: 1. Leg cramps - ICD9: 729.82, ICD10: R25.2 Await labs Will trial baclofen BID Follow up in 1 month. Meagan Yusuf PA-C documented in this encounterMer[facility]12-29-2022 Miscellaneous Notes* Telephone Encounter - Rajani Granger MA - 07/15/2022 1:04 PM EST Paperwork was completed twice 06/14/2022 and 06/15/2022 and faxed. Paperwork was in scanning. Refaxed. Rajani Granger MA * Telephone Encounter - Caterina Salazar RN - 07/15/2022 9:58 AM EST [facility] called and reports they had sent over a fax for incontinence supplies. Had herre-fax them to Meagan Yusuf CATEGORY DEVELOPMENT MANAGER at [phone]. Please fill out and send back. documented in this encounterMer[facility]12-02-2022 Miscellaneous Notes* Telephone Encounter - JUDIE Goldstein - 06/18/2022 11:11 AM EST Sw spoke with patient regarding oil field caser need. Patient reports that she used to have a oil field caser through [facility]. Patient notes that her oil field caser that she has had recently left the agency and now she does not have oil field caser. Sw notes that for this SW to be able to speak with [facility] in regards to oil field caser need, patient would have to sign consent form.Sw will mail out HIPPA/Consent form to share with [facility] regarding patient needs. Patient notes that oil field caser would always assist patient with rides or coordinating rides to healthcare appts. Patient also notes that she has a nurse coming out to see her on 06/24/22 from [facility] for a home assessment. Patient is going to ask the nurse for any assistance that could be provided to repairher back steps/add safety equipment to her home. Patient notes that she will ask [facility] oil field caser about transportation assistance as well. Patient notes that she will sign release form when she receives it and send it back to to help coordinate services with [facility]. * Telephone Encounter - JUDIE Goldstein - 06/17/2022 10:22 AM EST Sw left 2nd message to have call returned to discuss patient social service needs. Sw will try callagain tomorrow 06/18 at 11am. * Telephone Encounter - JUDIE Goldstein - 06/14/2022 8:59 AM EST Sw left message for patient to return call to discuss oil field caserlive study manager needs for help with appts. documented in this encounterMer[facility]11-28-2022 Miscellaneous Notes* Telephone Encounter - Homer Bradford MD - 06/14/2022 5:03 PM EST The following approved medication requests have been transmitted electronically. Requested Prescriptions Signed Prescriptions Disp Refills furosemide (LASIX) 20 mg tablet 30 tablet 5 Sig: Take 1 tablet by mouth once daily. Authorizing Provider: HOMER BRADFORD MD * Telephone Encounter - Shanti Monreal RN - 06/14/2022 4:40 PM EST Patient calls to request two medications from appointment on 06/09/2022 be sent in to [facility]. Reviewed OV notes with no medication changes or orders placed. Noted possibility of baclofen 10 mg twice a day if labs ok. Labs not completed. Patient reports she thinks furosemide was one of the ones that needed ordered. Per med list patient reported not taking. Pended for review. Patient said to let Dr. Bradford know and he would know what she is talking about. Shanti Monreal RN documented in this encounterMer[facility]11-23-2022 History of Present illness Narrative* Homer Bradford MD - 06/09/2022 2:40 PM EST Chief Complaint Patient presents with: Leg Cramps: Patient has been having legs cramps and swelling. HPI Pernell Rodriguez is a 62 year old female who presents here today for leg cramps. Patient says leg cramps have bene going on for about 5 months during the day and night. Nothing shedoes makes them worse or better. Since being on the lower dose of Lasix she has had increased leg swelling she thinks. C/o rash on the lateral part of her right thigh that is itchy at times. C/o of a similar issue on the left upper back. Does not use a moisturizer on a regular basis. C/o bruising on her right side of the abdomen. Patient was taken off of her metformin back in November do to worsening of her renal function. A1c at that time was 6%. Patient has to use up to 8 pull ups a day due to her urinary incontinence and fecal incontinence and needs her monthly supply increased from 180 to 240. Patient has been missing appointments due to not having a pediatric social worker working with her. Past medical history, appointments, medications, allergies reviewed. Previous Medical History PAST MEDICAL HISTORY Diagnosis Date ASHD (arteriosclerotic heart disease) 10/25/[address] Goins Bilateral leg edema 04/25/2015 Bipolar affective disorder (HCC) 04/25/[address] Colindres Chest pain 02/14/[address] Jacob in [facility]. Had a normal cardiac CTA in 2009 with no calcium. Chronic back pain greater than 3 months duration 04/02/2015 Chronic insomnia 03/12/2020 Ilya Calderón ([facility]) on melatonin. Chronic obstructive pulmonary disease (HCC) 04/25/2015 Chronic pain 01/14/2014 Constipation 02/12/2014 [place] or callus 11/16/2015 Current use of proton pump inhibitor 10/11/2017 CVA (cerebral infarction) 01/14/2014 Diabetic eye exam ([facility]) 01/14/[address] Sanchez last done 03/02/2019 Diabetic foot ([facility]) 01/14/[address] Martins Extrapyramidal reaction 01/14/2014 Gastroesophageal reflux disease without esophagitis 04/25/2015 History of CVA (cerebrovascular accident) 04/25/[address] Ilya Calderón ([facility]) Hives 01/14/2014 Hypotension 01/14/2014 Sees Ilya Calderón ([facility]) and has her on fludrocortisone Incontinence of feces 07/08/2017 Irritable bowel syndrome with both constipation and diarrhea 04/28/2017 Low back pain 01/14/2014 Lumbosacral neuritis 04/16/2014 Major depressive disorder, recurrent episode, moderate ([facility]) 04/25/2015 On disability Migraine without aura and without status migrainosus, not intractable 04/28/[address] Calderón Mixed hyperlipidemia 01/14/2014 Mixed incontinence urge and stress (male)(female) 07/25/2018 Morbid obesity due to excess calories ([facility]) 10/27/2016 Muscle weakness (generalized) 07/25/2018 Myofascial pain 04/16/2014 Nodule of left lung 12/17/2015 CT 09/2018 still stable, no further CT's needed. Seen on CT of abd/pelv 11/2015. CT 06/2016 showed stable left nodule, Stable 09/2016 repeat 10/2017: stable repeat 06/2018 Paroxysmal atrial fibrillation (HCC) 11/23/2021 Perforation of left tympanic membrane 05/21/2019 chronic Physical deconditioning 04/02/2015 PMH - PAST MEDICAL HISTORY OF ovarian cysts PMH - PAST MEDICAL HISTORY OF bladder tipped, has incontience PMH - PAST MEDICAL HISTORY OF irregular heart beat Smoker 11/20/2020 Started age 15 at 1.5 PPD Stage 3b chronic kidney disease (HCC) 11/24/2020 Tardive dyskinesia 03/12/2020 Ilya Calderón ([facility]) Type 2 diabetes mellitus without complication (HCC) 04/25/2015 Urinary incontinence 07/08/2017 Previous Surgical History PAST SURGICAL HISTORY Procedure Laterality Date *STRESS TEST PC 05/06/2016 WNL 2D ECHO (EXEP) 01/14/2014 EF=65% Trival [place], TI, PI, LA enlarged. CARPAL TUNNEL Bilateral 08/28 and 09/25 COLONOSCOPY FLX DX W/COLLJ SPEC WHEN PFRMD 2011 [facility] Colonoscopy, no polyps repeat 10 yrs CRYOCAUTERY OF CERVIX or twice DILATION & CURETTAGE DX&/THER NONOBSTETRIC Dilation & curettage ESOPHAGOGASTRODUODENOSCOPY TRANSORAL DIAGNOSTIC EGD LIG/TRNSXJ FLP TUBE ABDL/VAG APPR UNI/BI Tubal ligation PAST SURGICAL HISTORY OF 07/2015 had left medial elbow sugery but can't explain for what. PAST SURGICAL HISTORY OF Right 2012 repair rotator cuff and bone spurs PAST SURGICAL HISTORY OF 09/09/2020 bladder interstim for overactive bladder per Dr. Alba PAST SURGICAL HISTORY OF cholecystectomy PT ED UROLOGY 08/2020 [facility] Family History FAMILY HISTORY Problem Relation Age of Onset Hypertension Mother Diabetes Mother other (hysterectomy) Mother fibroids other (hysterectomy) Maternal Grandmother fibroids Cancer Paternal Aunt Heart Son irregular heart beat Patient Allergies ALLERGIES Allergen Reactions Penicillins Hives Tetanus, Diphtheria* Swelling local reaction Benztropine Unknown Diazepam Unknown Imodium [Loperamide] Other: See Comments Chest pain Mellaril [Thioridaz* GI Upset Pneumovax 23 [Pneum* Intolerance Sulfa (Sulfonamide * GI Upset Causes vomiting and rash Tegretol [Carbamaze* GI Upset Current Medications Current Outpatient Medications on File Prior to Visit Medication Sig lovastatin (MEVACOR) 20 mg tablet TAKE 1 TABLET BY MOUTH DAILY AT BEDTIME. FOR CHOLESTEROL. spironolactone (ALDACTONE) 25 mg tablet Take 1 tablet by mouth once daily. omeprazole (PRILOSEC) 40 mg capsule Take 1 capsule by mouth once daily. hyoscyamine SR (LEVBID) 0.375 mg 12 hr tablet Take 1 tablet by mouth twice daily. furosemide (LASIX) 20 mg tablet Take 1 tablet by mouth once daily. Per cardioAlexandr blood sugar diagnostic (BLOOD GLUCOSE TEST) test strip Test blood sugar(s) 1 times daily. Dx: Type 2 DM - Controlled E11.9 Insulin: No Lancets lancets Test blood sugar(s) 1 times daily. Dx: Type 2 DM - Controlled E11.9 Insulin: No citalopram hydrobromide (CELEXA) 10 mg tablet Take 1 tablet by mouth once daily. Per psych, Dr. Negrete amantadine HCl (SYMMETREL) 100 mg capsule Take 1 capsule by mouth twice daily. Per Neuro, Dr. Calderón apixaban (ELIQUIS) 5 mg tab(s) Take 1 tablet by mouth twice daily. Per CardioAlexandr fludrocortisone (FLORINEF) 0.1 mg tablet Take 1 tablet by mouth once daily. Per Neuro, Dr. Calderón melatonin 10 mg cap Take 1 capsule by mouth daily at bedtime. Per Neuro, Dr. Calderón metoprolol tartrate, short acting, (LOPRESSOR) 25 mg tablet Take 1 tablet by mouth twice daily. Alexandr Pearson (Patient not taking: Reported on 11/27/2021 ) QUEtiapine ER (SEROQUEL XR) 200 mg 24 hr tablet Take 1 tablet by mouth twice daily. Per psych, Dr. Negrete topiramate (TOPAMAX) 25 mg tablet Take 1 tablet by mouth twice daily. Per Neurology, Dr. Calderón (Patient not taking: Reported on 11/27/2021 ) mirabegron (MYRBETRIQ) 25 mg Tb24 Take 1 tablet by mouth once daily. Per Urology Dr. Alba traZODone (DESYREL) 100 mg tablet daily at bedtime. insulin needles, DISPOSABLE, (PEN NEEDLE) 31 gauge x 11/30 Use one needle per dose per sliding scale bisacodyl (DULCOLAX, BISACODYL,) 10 mg supp 1 Suppository by RECTAL route once daily as needed for constipation. ipratropium-albuterol (DUONEB) 0.5 mg-3 mg(2.5 mg base)/3 mL nebu Inhale 3 mL as instructed every 3hours as needed for wheezing/shortness of breath. For SOB related to ACUTE RESPIRATORY FAILURE WITHHYPOXIA (J96.01) while awake albuterol HFA (VENTOLIN HFA) 90 mcg/actuation inhaler INHALE 2 PUFFS INSTRUCTED EVERY FOUR HOURSAS NEEDED insulin lispro (HUMALOG KWIKPEN) 100 unit/mL Inject as per sliding scale: If 150 - 189 = 1 unit; 190 - 229 = 2 units; 230 -269 = 3 units; 270 - 309 = 4 units; 310 - 349 = 5 units; 350 - 399 = 6 units; 400 - 449 = 7 units > call Physician, subcutaneously three times a day for DM (Patient not taking: Reported on 11/27/2021 ) nitroglycerin sublingual (NITROQUICK) 0.4 mg SL tablet Dissolve 1 tablet under the tongue every 5 minutes as needed for chest pain. rizatriptan (MAXALT) 10 mg tablet Take 1 tablet by oral route every 2 hours no more than 2 in 24 hours sodium chloride 0.9 % soln Use 2 Sprays in the nose every 6 hours as needed. Docosahexanoic Acid-Eicosapent (FISH OIL) 120-180 mg capsule Take 2 g by mouth once daily. hydrocortisone (ANUSOL-HC) 2.5 % rectal cream by RECTAL route twice daily. multivitamin (DAILY-JG) tablet Take 1 tablet by mouth every morning. COMPOUNDED PRESCRIPTION Adult diapers size XL Change diaper up to seven times a day. # 210 diapers With 5 refills Dx: R32 and R15.9 omega-3 fatty acids 1,000 mg cap Take 2 capsules by mouth once daily. LORazepam (ATIVAN) 0.5 mg tab Take 1 tablet by mouth twice daily as needed (anxiety). No current facility-administered medications on file prior to visit. Social History Social History Tobacco Use Smoking status: Every Day Packs/day: 1.50 Years: 50.00 Pack years: 75.00 Types: Cigarettes Smokeless tobacco: Never Vaping Use Vaping Use: Never used Substance Use Topics Alcohol use: No Drug use: No Review of Symptoms REVIEW OF SYSTEMS GENERAL: No weight loss, malaise or fevers HEENT: Negative for frequent or significant headaches, No changes in hearing or vision, no nose bleeds or other nasal problems NECK: Negative for lumps, goiter, pain and significant neck swelling RESPIRATORY: Negative for cough, hemoptysis, wheezing, COPD, dyspnea or shortness of breath CARDIOVASCULAR: Negative for chest pain, leg swelling, hypertension, CHF or palpitations GI: No nausea, vomiting, or diarrhea and No heartburn or reflux symptoms. Has fecal incontinence. : Positive for incontinence seeing Urology MUSCULOSKELETAL: see HPI SKIN: see HPI PSYCH: seeing psych HEMATOLOGY/LYMPHOLOGY: See HPI ENDOCRINE: Negative for cold or heat intolerance, polyuria, polydipsia and goiter NEURO: No history of headaches, syncope, paralysis, seizures or tremors EXAM: BP 104/60 (BP Site: Left Arm, BP Position: Sitting, BP Cuff Size: Regular Adult) Pulse 72 Resp 18 Ht 162.6 cm (5' 4) Wt 119.3 kg (263 lb) LMP 02/22/2006 BMI 45.14 kg/m General Appearance: Well appearing, alert, in no acute distress, well-hydrated, well nourished. andMorbidly obese. Skin: Skin color, texture, turgor normal, no suspicious rashes or lesions, no skin sores on her torso, abdomen, under her skin folds or extremities. No Bruises. Head: Normocephalic, no masses, lesions, tenderness or abnormalities. Eyes: Anicteric sclera. Pupils are equally round and reactive to light. Extraocular movements are intact. . Ears: External ears, TM's normal, canals clear. Neck: Supple, no adenopathy; thyroid symmetric, normal size, no bruits. Lungs: Lungs clear to auscultation. No wheezing, rhonchi, rales.. Heart: RRR without murmur, gallop, or rubs. No ectopy. Abdomen: Normal abdominal exam, Abdomen soft, non-tender. Bowel sounds normal. No masses, organomegaly. Extremities: No deformities, edema, skin discoloration, clubbing or cyanosis. Good capillary refill. Reinforced to patient she does not have any edema just extra subcutaneous tissue (fat). Musculoskeletal: Muscular strength intact, No joint swelling, deformity, or tenderness. Peripheral Pulses: Normal. Neurologic: Gait normal. Reflexes normal and symmetric. Sensation to light touch and crainal [id number] intact.. Health Maintenance List COVID-19 VACCINE(1) Never done ALPHA-1 ANTITRYPSIN DEFICIENCY SCREENING Never done SHINGRIX VACCINE(1 of 2) Never done LUNG CANCER SCREENING due on 09/30/2019 COLORECTAL CANCER SCREENING due on 09/27/2021 DILATED RETINAL EXAM due on 11/25/2021 HEMOGLOBIN/HEMATOCRIT due on 12/08/2021 HBA1C due on 06/06/2022 DIABETIC FOOT EXAM due on 05/29/2022 MAMMOGRAM due on 06/24/2022 ANNUAL PCP TEAM CHRONIC DISEASE VISIT due on 11/27/2022 LDL CHOLESTEROL due on 12/04/2022 URINE ALBUMIN:CREATININE RATIO due on 12/05/2022 SERUM CREATININE due on 12/15/2022 PAP TESTING due on 05/22/2023 HPV TESTING due on 05/22/2023 HEPATITIS C SCREENING Completed HIV SCREENING Completed DTAP,TDAP,TD Discontinued SPIROMETRY Discontinued INFLUENZA Discontinued PNEUMOCOCCAL Discontinued Data reviewed Component Latest Ref Rng & Units 12/08/2020 12/04/2021 12/05/2021 02/04/2022 WBC 3.70 - 11.00 k/uL 8.61 RBC 3.90 - 5.20 m/uL 4.36 Hemoglobin 11.5 - 15.5 g/dL 13.6 Hematocrit 36.0 - 46.0 % 43.9 MCV 80.0 - 100.0 fL 100.7 (H) MCH 26.0 - 34.0 pG 31.2 MCHC 30.5 - 36.0 g/dL 31.0 RDW-CV 11.5 - 15.0 % 13.0 Platelet Count 150 - 400 k/uL 261 MPV 9.0 - 12.7 fL 11.0 Neut% % 56.7 Abs Neut (ANC) 1.45 - 7.50 k/uL 4.86 Lymph% % 31.0 Abs Lymph 1.00 - 4.00 k/uL 2.67 Price% % 9.2 Abs Price <0.87 k/uL 0.79 Eosin% % 2.8 Abs Eosin <0.46 k/uL 0.24 Baso% % 0.3 Abs Baso <0.11 k/uL 0.03 Nucleated Reds 0 /100 WBC 0.0 Absolute nRBC <0.01 k/uL <0.01 Diff Type Auto Diff Protein, Total 6.3 - 8.0 g/dL 7.1 Albumin 3.9 - 4.9 g/dL 4.3 Calcium 8.5 - 10.2 mg/dL 9.8 Bilirubin, Total 0.2 - 1.3 mg/dL 0.2 Alkaline Phosphatase 34 - 123 U/L 60 AST 13 - 35 U/L 18 ALT 7 - 38 U/L 12 Glucose 74 - 99 mg/dL 103 (H) BUN 7 - 21 mg/dL 32 (H) Creatinine 0.58 - 0.96 mg/dL 1.93 (H) Sodium 136 - 144 mmol/L 145 (H) Potassium 3.7 - 5.1 mmol/L 3.9 4.2 Chloride 97 - 105 mmol/L 106 (H) CO2 22 - 30 mmol/L 28 Anion Gap 9 - 18 mmol/L 11 eGFR >=60 mL/min/1.73m 30 (L) Total Cholesterol, Nonfasting <200 mg/dL 144 Triglycerides, Nonfasting <150 mg/dL 160 (H) HDL Cholesterol, Nonfasting >39 mg/dL 41 LDL Cholesterol, Nonfasting <100 mg/dL 71 Non HDL Cholesterol, Nonfasting <130 mg/dL 103 VLDL Cholesterol, Nonfasting <30 mg/dL 32 (H) Total Chol/HDL Ratio, Nonfasting <5.10 mg/dL 3.51 LDL/HDL Ratio, Nonfasting <2.54 mg/dL 1.73 Creatinine, Ur Random (UCRR) 20.0 - 300.0 mg/dL 119.4 Albumin, Urine Random mg/L <12.0 Albumin/Creat Ratio <30 mg/g <10 Hemoglobin A1C 4.3 - 5.6 % 6.0 (H) Estimated Average Glucose mg/dL 126 A/P ASSESSMENT/PLAN: 1. Well adult exam - ICD9: V70.0, ICD10: Z00.00 (primary diagnosis) - Counseled on healthy diet and regular exercise - Calcium intake with supplements or by diet of 1000 mg/day for under 50, 1200- 1500 mg/day for 50+ - Discussed need and benefit for weight loss. BMI 45.14 kg/(m^2) - Follow up for annual exam in one year - FECAL OCCULT BLOOD TEST 2. Type 2 diabetes mellitus without complication, with long-term current use of insulin (HCC) - ICD9: 250.00, V58.67, ICD10: E11.9, Z79.4 Will await labs to see if needs to be restarted on a oral diabetic agent. - Encouraged regular aerobic exercise and weight loss - BP goal of <130/80 - LDL goal of <100 - PRIMARY CARE SOCIAL WORK CONSULT Check - COMP METABOLIC PANEL - HGB A1C - LIPID PANEL, NONFASTING - CBC + DIFF 3. Diabetic eye exam (HCC) - ICD9: V72.0, 250.00, ICD10: Z01.00, E11.9 - At last appt I addressed this with the patient's pediatric social worker and was never accomplished. 4. Diabetic foot (HCC) - ICD9: 250.80, ICD10: E11.8 - seeing podiatry 5. Mixed hyperlipidemia - ICD9: 272.2, ICD10: E78.2 - to be determined upon return of lab results - Encouraged following a low fat, low cholesterol diet. - Discussed the benefits of regular aerobic exercise and weight loss. - Encouraged following a low carbohydrate, healthy oil intake diet. - Continue current therapy. Check - COMP METABOLIC PANEL - LIPID PANEL, NONFASTING 6. Gastroesophageal reflux disease without esophagitis - ICD9: 530.81, ICD10: K21.9 - Continue treatment with Prilosec 40 mg QD - MAGNESIUM BLD - VITAMIN B12 BLOOD 7. Hypotension, unspecified hypotension type - ICD9: 458.9, ICD10: I95.9 - stable today - management per neuro: Dr. Calderón [facility] - PRIMARY CARE SOCIAL WORK CONSULT 8. Migraine without aura and without status migrainosus, not intractable - ICD9: 346.10, ICD10: G43.009 - management per Neuro - PRIMARY CARE SOCIAL WORK CONSULT 9. Tardive dyskinesia - ICD9: 333.85, ICD10: G24.01 - management per Neuro - PRIMARY CARE SOCIAL WORK CONSULT 10. Chronic insomnia - ICD9: 780.52, ICD10: F51.04 - management per Neuro - PRIMARY CARE SOCIAL WORK CONSULT 11. Chronic obstructive pulmonary disease, unspecified COPD type (HCC) - ICD9: 496, ICD10: J44.9 Management per [facility] Pulm Dr. Christopher - PRIMARY CARE SOCIAL WORK CONSULT 12. ASHD (arteriosclerotic heart disease) - ICD9: 414.00, ICD10: I25.10 - management per Cardio: Fish CATEGORY DEVELOPMENT MANAGER - PRIMARY CARE SOCIAL WORK CONSULT - LIPID PANEL, NONFASTING 13. Paroxysmal atrial fibrillation (HCC) - ICD9: 427.31, ICD10: I48.0 - as per #12 - PRIMARY CARE SOCIAL WORK CONSULT 14. Bilateral leg edema - ICD9: 782.3, ICD10: R60.0 - none on exam. No changes needed. 15. Stage 3b chronic kidney disease (HCC) - ICD9: 585.3, ICD10: N18.32 - management per renal: Dr. Bettencourt - [facility] SOCIAL WORK CONSULT - CBC + DIFF 16. History of CVA (cerebrovascular accident) - ICD9: V12.54, ICD10: Z86.73 - no new issues or changes in Tx. 17. Mixed incontinence urge and stress (male)(female) - ICD9: 788.33, ICD10: N39.46 Management per Urology: Dr. Alba - [facility] SOCIAL WORK CONSULT - MEDICAL SUPPLY 18. Incontinence of feces, unspecified fecal incontinence type - ICD9: 787.60, ICD10: R15.9 - [facility] SOCIAL WORK CONSULT - MEDICAL SUPPLY 19. Smoker - ICD9: 305.1, ICD10: F17.200 - Cessation encouraged. - Counseling was given focusing on the harmful effects of this addiction especially given the patient's medical condition(s) which will be worsened because of the chemicals in tobacco. 20. Bipolar affective disorder, remission status unspecified (HCC) - ICD9: 296.80, ICD10: F31.9 - Management per Psych: Dr. Negrete - [facility] SOCIAL WORK CONSULT 21. Major depressive disorder, recurrent episode, moderate (HCC) - ICD9: 296.32, ICD10: F33.1 - as per #20 - [facility] SOCIAL WORK CONSULT 22. [place] or callus - ICD9: 700, ICD10: L84 - management per Podiatry: Dr Pool 23. Colon cancer screening - ICD9: V76.51, ICD10: Z12.11 Check - FECAL OCCULT BLOOD TEST 24. Medication management - ICD9: V58.69, ICD10: Z79.899 Check - MAGNESIUM BLD - VITAMIN B12 BLOOD - CBC + DIFF 25. Leg cramps - ICD9: 729.82, ICD10: R25.2 Check - MAGNESIUM BLD F/u in 2 weeks leg cramps if labs ok could consider baclofen 10 mg twice a day. F/u 6 months routine Homer Bradford MD documented in [facility] encounterMer[facility]22 Miscellaneous Notes* Telephone Encounter - Mary Ann Rodriguez LPN - 05/05/2022 1:44 PM EDT Patient has been identified by name and date of : Yes Pharmacy phones for refill(s): Requested Prescriptions Pending Prescriptions Disp Refills lovastatin (MEVACOR) 20 mg tablet 30 tablet 5 Sig: TAKE 1 TABLET BY MOUTH DAILY AT BEDTIME. FOR CHOLESTEROL. spironolactone (ALDACTONE) 25 mg tablet 30 tablet 5 Sig: Take 1 tablet by mouth once daily. omeprazole (PRILOSEC) 40 mg capsule 30 capsule 5 Sig: Take 1 capsule by mouth once daily. hyoscyamine SR (LEVBID) 0.375 mg 12 hr tablet 60 tablet 5 Sig: Take 1 tablet by mouth twice daily. Date of last office visit in primary care: 11/27/2021 , has appt 06/09/2022 Last 2 Encounter Wt Readings: Date: Wt: 11/27/2021 106.1 kg (233 lb 12.8 oz) 10/14/2021 108.7 kg (239 lb 9.6 oz) Previous labs/tests for medication: Cholesterol: HDL Cholesterol (mg/dL) Date Value 11/01/2017 41 HDL Cholesterol, Nonfasting (mg/dL) Date Value 12/04/2021 41 05/29/2021 41 LDL Cholesterol (mg/dL) Date Value 11/01/2017 63 LDL Cholesterol, Nonfasting (mg/dL) Date Value 12/04/2021 71 05/29/2021 73 ALT (U/L) Date Value 12/04/2021 12 05/29/2021 11 Non HDL Cholesterol, Nonfasting (mg/dL) Date Value 12/04/2021 103 05/29/2021 93 Please advise. Thank you. Mary Ann Rodriguez LPN documented in this encounterMer[facility]10-17-2022 Miscellaneous Notes* Telephone Encounter - Rajani Granger MA - 05/03/2022 5:49 PM EDT Faxed received and information faxed. Rajani Granger MA * Telephone Encounter - Mary Ann Rodriguez LPN - 04/29/2022 11:00 AM EDT [facility] calling again, gave notes from below. Faxing request again to office. * Telephone Encounter - Rajani Granger MA - 04/16/2022 2:39 PM EDT Have not received paperwork. Contacted and they are refaxing. Verified fax number. Rajani Granger MA * Telephone Encounter - Lizzy Gunn LPN - 04/16/2022 11:06 AM EDT Mariely from [facility] states that she faxed a medical release to us on 04/06. Asking if wereceived this request? She is going to refax the request. If we do not receive it please call her back at [phone]. documented in this encounterMercy Health [facility]08-01-2022 Miscellaneous Notes* Telephone Encounter - Homer Bradford MD - 02/15/2022 2:23 PM EDT The following approved medication requests have been transmitted electronically. Signed Prescriptions Disp Refills furosemide (LASIX) 20 mg tablet 30 tablet 3 Sig: Take 1 tablet by mouth once daily. Per Alexandr sauer: No Authorizing Provider: HOMER BRADFORD MD * Telephone Encounter - Rajani Granger MA - 02/15/2022 8:[address] Bradford we refilled her last prescription on 12/07/2021. Result note on 12/06/2021 indicates that we changed her medication. Rajani Granger MA * Telephone Encounter - Homer Bradford MD - 02/14/2022 2:32 PM EDT Please advise patient her furosamide comes from her supervisor electronics assembly CATEGORY DEVELOPMENT MANAGER. * Telephone Encounter - Mary Ann Rodriguez LPN - 02/12/2022 3:30 PM EDT Patient has been identified by name and date of : Yes Pharmacy phones for refill(s): Pending Prescriptions Disp Refills FUROSEMIDE 20 MG TABLET 30 tablet 1 Sig: Take 1 tablet by mouth once daily. Per Alexandr sauer PATY: No Date of last office visit in primary care: 11/27/2021, has appt 06/09/2022 Last 2 Encounter Wt Readings: Date: Wt: 11/27/2021 106.1 kg (233 lb 12.8 oz) 10/14/2021 108.7 kg (239 lb 9.6 oz) Previous labs/tests for medication: Blood Pressure: BUN (mg/dL) Date Value 12/15/2021 22 05/29/2021 12 Sodium (mmol/L) Date Value 12/15/2021 145 05/29/2021 142 Last 1 Encounter BP Readings: Date: BP: 11/27/2021 96/64 Please advise. Thank you. Mary Ann Rodriguez LPN documented in this encounterMercy [facility]07-29-2022 History of Present illness Narrative* Dennys Yrn - 02/12/2022 2:39 PM EDT Last saw DR. Bradford: 11/20/21 Subjective: Patient presents to clinic c/o painful toenails. They state that the nails are especially painful with shoe gear and pressure. Patient states that nails 1-5 b/l are painful. Patient admits to being diabetic. No other pedal complaints at this time. Patient states no change in medications or medical history since last visit. Objective: Vasc: DP and PT pulses are decreased bilateral. CFT is less than 5 seconds bilateral. Skin temperature is warm to cool proximal to distal bilateral. There is mild edema or varicosities noted. Neuro: Protective sensation is decreased to the foot and toes when tested with the 5.07 SWM bilateral. Vibratory sensation is absent at the hallux IPJ bilateral. The hallux is downgoing bilateral. Derm: Nails 1-5 b/l are painful, discolored-yellow, thick, crumbly, dystrophic and with subungal debris. Skin is of normal turgor, texture and hair growth is absent bilateral. There are no hyperkeratosis, ulcerations, scars, verruca or other lesions noted. Ortho: Muscle strength is 5/5 for all pedal groups tested. Ankle joint DF is decreased with the knee extended with no pain or crepitus noted. 1st MPJ ROM is decreased bilateral. Assessment: (B35.1) Onychomycosis (primary encounter diagnosis) (M79.675) Pain in toe of left foot (M79.674) Pain in toe of right foot (R09.89) Diminished pulses in lower extremity (E11.49) Other diabetic neurological complication associated with type 2 diabetes mellitus (HCC) Plan: Patient was seen and evaluated. Nails 1-5 bilateral were debrided in length and thickness. Patient was instructed on the continued importance of diabetic foot care along with proper diet and keeping their blood sugar under control to prevent complications. Patient is to RTC in 3-4 months. Dennys Pool DPM * Kim Kiran LPN - 02/12/2022 2:20 PM EDT AMB ROOMING INTAKE FLOWSHEET DATA Risk Screening Do you have concerns about personal safety or safety in the home?: No Patient presents with: Right Foot - Diabetic Foot Care, Established Patient Follow-Up Left Foot - Diabetic Foot Care, Established Patient Follow-Up Present with case manger. Kim Kiran LPN documented in this encounterMer[facility]07-29-2022 Instructions* Patient Instructions* Dennys Pool - 02/12/2022 2:39 PM EDT Thank you for choosing the [facility] for your acute care needs. [facility] treats minor infections, rashes and injuries. It is our mission for our patients to be healthy. A primary care relationship with the physician allows for continuity of care, counseling, and maintenance of preventive health care needs. [facility] does not replace the relationship or need for a primary care physician. For information about establishing with a primary care physician or booking an appointment, please call [phone] or speak with any Patient Restaurant Host/Hostess. Hours: Tuesday through Tuesday 7:30 am to 7:00 pm. Tuesday and Tuesday: 8:00 am to 2:30 pm. Diabetes Foot Care Instructions When you have diabetes, proper foot care is very important. Poor foot care may lead to amputation of a foot or leg. As a person with diabetes, you are more vulnerable to foot problems, because diabetes can damage your nerves and reduce blood flow to your feet. Here are some diabetes foot care tips to follow: Wash and Dry Your Feet Daily Use mild soaps Use warm water Pat your skin dry; do not rub. Thoroughly dry your feet. After washing, use lotion on your feet to prevent cracking. Do not put lotion between your toes. Examine Your Feet Each Day Check the tops and bottoms of your feet. Have someone else look at your feet if you cannot see them. Check for dry, cracked skin. Look for blisters, cuts, scratches, or other sores. Check for redness, increased warmth, or tenderness when touching any area of your feet. Check for ingrown toenails, corns, and calluses. If you get a blister or sore from your shoes, do not pop it. Apply a bandage and wear a differentpair of shoes. Take Care of Your Toenails Cut toenails after bathing, when they are soft. Cut toenails straight across and smooth with a nail file. Avoid cutting into the corners of toes. Do not cut cuticles. If you have neuropathy (or decreased sensation in your feet) a popcorn attendant should always cut your toenails. Be Careful When Exercising Walk and exercise in comfortable shoes. Do not exercise when you have open sores on your feet. Protect Your Feet With Shoes and Socks Never go barefoot. Always protect your feet by wearing shoes or hard-soled slippers or footwear. Avoid shoes with high heels and pointed toes. Avoid shoes that expose your toes or heels (such as open-toed shoes or sandals). These types of shoes increase your risk for injury and potential infections. Try on new footwear with the type of socks you usually wear. Do not wear new shoes for more than an hour at a time. Change your socks daily. Look and feel inside your shoes before putting them on to make sure there are no foreign objects orrough areas. Avoid tight socks. Wear natural-fiber socks (cotton, wool, or a cotton-wool blend). Wear special shoes if your health care provider recommends them. Wear shoes/boots that will protect your feet from various weather conditions (cold, moisture, etc.). Make sure your shoes fit properly. If you have neuropathy (nerve damage), you may not notice that your shoes are too tight. Perform the footwear test described below. Footwear Test Use this simple test to see if your shoes fit correctly: Stand on a piece of paper. (Make sure you are standing and not sitting, because your foot changes shape when you stand.) Trace the outline of your foot. Trace the outline of your shoe. Compare the tracings: Is the shoe too narrow? Is your foot crammed into the shoe? The shoe should be at least 1/2 inch longer than your longest toe and as wide as your foot. Proper Shoe Choices The following types of shoes are best for people with diabetes Closed toes and heels Leather uppers without a seam inside At least 1/2 inch extra space at the end of your longest toe Inside of shoe should be soft with no rough areas Outer sole should be made of stiff material Shoes should be at least as wide as your feet Tips for Foot Care in Diabetes Don't wait to treat a minor foot problem if you have diabetes. Follow your health care provider's guidelines and first aid guidelines. Report foot injuries and infections to your health care provider immediately. Check water temperature with your elbow, not your foot. Do not use a heating pad on your feet. Do not cross your legs. Do not self-treat your corns, calluses, or other foot problems. Go to your health care provider or popcorn attendant to treat these conditions. documented in this encounterMer[facility]07-22-2022 Miscellaneous Notes* Telephone Encounter - Aspen Bell LPN - 02/05/2022 10:50 AM EDT Pt notified of same. Aspen Bell LPN * Telephone Encounter - Meagan Yusuf PA-C - 02/05/2022 9:49 AM EDT Potassium is back in normal range now. Meagan Yusuf PA-C documented in this encounterMercy Health [facility]06-20-2022 Miscellaneous Notes* Telephone Encounter - Rodger Walters Ma - 01/04/2022 4:00 PM EDT Unable to reach letter mailed to patient. * Telephone Encounter - Aspen Bell LPN - 12/31/2021 1:56 PM EDT Left additional message for pt to contact office. * Telephone Encounter - Aspen Bell LPN - 12/29/2021 8:27 AM EDT Left vm for pt to contact office for results and Dr Bradford's instructions. Aspen Bell LPN * Telephone Encounter - Aspen Bell LPN - 12/25/2021 11:59 AM EDT Left additional message for pt to contact office. Aspen Bell LPN * Telephone Encounter - Rajani Granger MA - 12/21/2021 9:45 AM EDT Left additional message for patient to contact office. Also sent Kopjrahart message. Rajani Granger MA * Telephone Encounter - Rajani Granger MA - 12/18/2021 9:01 AM EDT Left additional message for patient to contact office. Rajani Granger MA * Telephone Encounter - Caterina Salazar RN - 12/17/2021 9:22 AM EDT Called and left a voicemail for the Patient to call back and ask for a nurse to receive the providers message. Caterina Salazar RN * Telephone Encounter - Homer Bradford MD - 12/16/2021 9:35 PM EDT Let patient know swallowing study shows a mild-mod oropharyngeal difficulty with swallowing. Recommendation is to work with speech therapy. Order placed for speech Therapy consult to do at [facility]. Please fax order and let patient know she will need to call to get set up. * Telephone Encounter - Jose Jarrell Ma - 12/16/2021 9:22 AM EDT Swallow study printed and placed on PCP tray to review and advise. Once PCP reviews and advises, call pt and notify her of labs results from PCP today. Jose Jarrell Ma * Telephone Encounter - Homer Bradford MD - 12/16/2021 9:17 AM EDT Can we get me a copy of the swallowing study? * Telephone Encounter - Shanti Monreal RN - 12/15/2021 2:53 PM EDT Blanca with [facility] calls to let provider know that outpatient swallow study completed and recommends patient follow up with a dental consult and out patient ST. Blanca reports that patient is asking what her next step is now that she is home and is asking aboutfurther therapy needs. Placed call to patient to verify needs. Per Blanca, patient is no longer homebound. Asked if patient was wanting out patient PT/OT and response was whatever Blanca thinks I need. Explained to patient Blanca was ST for swallow study. Patient denies any further request for outpatient PT/OT at this time. Shanti Monreal RN documented in this encounterMercy Health [facility]06-13-2022 Miscellaneous Notes* Telephone Encounter - Mary Ann Rodriguez LPN - 12/28/2021 4:19 PM EDT Patient returned call and went over results, notes from Meagan MAY with repeating several times until she understood. Aware rx to pharmacy. Patient said it takes [place] about 4 days to get rxto her. Advised to make sure she eats before she takes the potassium and reminder to do repeat lab work 10 to 14 days later when rx is finished. * Telephone Encounter - Aspen Bell LPN - 12/28/2021 8:53 AM EDT Left message for pt to contact office. Aspen Bell LPN * Telephone Encounter - Meagan Yusuf PA-C - 12/28/2021 8:26 AM EDT Let patient know that her potassium is even lower. Lets have her take some potassium supplementation for 1 week and recheck levels in 10-14 days. documented in this encounterMercy Health [facility]06-07-2022 Miscellaneous Notes* Telephone Encounter - Aspen Bell LPN - 12/22/2021 10:16 AM EDT Pt notified of same. Aspen Bell LPN * Telephone Encounter - Meagan Yusuf PA-C - 12/21/2021 2:43 PM EDT The potassium labs were canceled by the lab due to be hemolyzed. I was not notified by lab for thisso needs redone. Sorry. Meagan Yusuf PA-C * Telephone Encounter - Mary Ann Michael GIRALDO - 12/21/2021 2:11 PM EDT Patient calling asking for her repeat lab results, potassium. Please advise BASIC METABOLIC PNL Order: [id number] Status: Final result Visible to patient: Yes (not seen) Dx: Stage 3b chronic kidney disease (HCC) 0 Result Notes 1 Follow-up Encounter 1 Topic Component Ref Range & Units 6 d ago (12/15/21) 2 wk ago (12/04/21) 6 mo ago (05/29/21) 1 yr ago (11/20/20) 2 yr ago (01/05/19) 3 yr ago (12/08/18) 3 yr ago (05/23/18) Glucose 74 - 99 mg/dL 88 103 High CM 90 CM 93 CM 97 CM 130 High CM Comment: The [place] Diabetes Association (ADA) provides guidance for cutoff values for fasting glucose and random glucose. The ADA defines fasting as no caloric intake for at least 8 hours. Fastingplasma glucose results between 100 to 125 mg/dL indicate increased risk for diabetes (prediabetes). Fasting plasma glucose results greater than or equal to 126 mg/dL meet the criteria for diagnosis of diabetes. In the absence of unequivocal hyperglycemia, results should be confirmed by repeat testing. In a patient with classic symptoms of hyperglycemia or hyperglycemic crisis, random plasma glucose results greater than or equal to 200 mg/dL meet the criteria for diagnosis of diabetes. Reference: Standards of Medical Care in Diabetes 2016, [place] [employer] Association. Diabetes Care. 2016.39(Suppl 1). BUN 7 - 21 mg/dL 22 High 32 High 12 21 12 12 Creatinine 0.58 - 0.96 mg/dL 1.58 High 1.93 High 1.23 High 1.28 High 1.14 High 1.33 High Sodium 136 - 144 mmol/L 145 High 145 High 142 139 142 143 Potassium 3.7 - 5.1 mmol/L 3.6 Low 3.9 3.8 4.9 4.0 3.4 Low 3.5 Low Chloride 97 - 105 mmol/L 109 High 106 High 107 High 105 103 105 CO2 22 - 30 mmol/L 21 Low 28 26 27 28 23 Anion Gap 9 - 18 mmol/L 15 11 9 7 Low 11 15 Calcium, Total 8.5 - 10.2 mg/dL 10.0 9.8 9.2 9.8 9.3 9.1 Estimated Glomerular Filtration Rate >=60 mL/min/1.73m 38 Low 30 Low CM Comment: Estimated Glomerular Filtration Rate (eGFR) is calculated using the 2021 CKD-EPI creatinine equation. This equation utilizes serum creatinine, sex, and age as parameters. The creatinine assay has traceable calibration to isotope dilution-mass spectrometry. Refer to KDIGO guidelines for clinical interpretation. In patients with unstable renal function, e.g. those with acute kidney injury,the eGFR may not accurately reflect actual GFR. Resulting Agency [place] CCM documented in this encounterMercy Health [facility]06-06-2022 Hospital Discharge instructions Patient Education 12/21/2021 17:06:55 Drug Reaction, Other Reaction to Medicine (Other Type) You are having a reaction to a medicine you have taken. This may not be the same as an allergic reaction. It is an undesired, unfavorable reaction, or a side effect of a medicine. This can cause a variety of symptoms, including: Dizziness or headache Rash Flushing or hot sensation Nausea, vomiting, or stomach pain Diarrhea or constipation Trouble breathing High or low blood pressure A reaction can be an upset stomach from something like aspirin or ibuprofen, feeling faint after taking a blood pressure medicine, feeling anxious, and many other things. Symptoms of a medicine reaction can range from very mild to very severe. In most cases, the reaction goes away within 1 to 12 hours. But it will probably occur again if youtake this same medicine. Your healthcare provider will advise you whether to change how much, when,or how often you take this medicine. He or she may also advise you to discontinue this medicine or switch to another one. Home care Another medicine may be recommended to reduce your symptoms until the medicine s effect wears off. Follow your healthcare provider s advice. When the medicine s effect has worn off, there should be no further problem as long as you don't take the same medicine again. Ask your healthcare provider if you should also avoid similar medicines. Write down the informationso you will remember it. Make certain the medicine reaction is documented in your medical record. Follow-up care Follow up with your healthcare provider, or as advised if your symptoms are not better within 24 hours. When to seek medical advice Call your healthcare provider right away if any of these occur. New symptoms that concern you Worsening of your current symptoms, including rash or facial swelling Symptoms that are not relieved by the treatment advised Fever of 100.4 F (38 C) or higher, or as advised by your healthcare provider Call 911 Call 911 if any of these occur: Trouble breathing or swallowing, or wheezing Hoarse voice or trouble speaking Confusion Extreme drowsiness or trouble awakening Fainting or loss of consciousness Rapid heart rate or slow heart rate Very low or very high blood pressure Vomiting blood, or large amounts of blood in stool Seizure [id number] [employer]. [address] [place] [address], [place] [address]. All rights reserved. This information is not intended as a substitute for professional medical care. Always follow yourhealthcare professional's instructions. Follow Up Care 12/21/2021 15:38:28 With:JOVANA CHINO MD Address: [address] [place] [place] [address]- When:2-4 days With:HOMER BRADFORD MD Address: [address] [facility] [place] [id number]- When:2-4 days [facility] 06-01-2022 Miscellaneous Notes* Telephone Encounter - Erwin Harvey RN - 12/16/2021 11:41 AM EDT Patient returned call and given provider's message below with verbalized understanding. Faxed referral, lab results, ov notes to Dr. Bettencourt - fax # [phone]. Patient reports she will need to callher to arrange transportation for blood draw and to see Dr. Bettencourt. * Telephone Encounter - Jose Jarrell Ma - 12/16/2021 10:26 AM EDT Call pt when PCP reviews swallow study with additional lab results. See Result TE from today 12/16/21. Jose Jarrell Ma * Telephone Encounter - Homer Bradford MD - 12/16/2021 9:24 AM EDT Let patient know her kidney function is better on less lasix but still showing dysfunction. I want her to see Dr. Bettencourt [place] kidney specialist. Order placed. Her potassium was slightly low and want to repeat. Order placed. documented in this encounterMercy Health [facility]05-27-2022 Miscellaneous Notes* Telephone Encounter - Carlota Baez LPN - 12/11/2021 4:58 PM EDT printed order from [facility] completed and faxed to number given. * Telephone Encounter - Erwin Harvey RN - 12/11/2021 2:41 PM EDT Jessica- radiology [facility]- asking Dr. Dodd to please send new order for the MBSS with speech therapy. Please fax to [phone] * Telephone Encounter - Brianne Max LPN - 12/11/2021 2:33 PM EDT Updated information given to Radiology. Brianne Max LPN * Telephone Encounter - Dick Dodd MD - 12/11/2021 12:51 PM EDT Yes. MBSS with speech therapy. * Telephone Encounter - Caterina Salazar RN - 12/11/2021 12:37 PM EDT Jessica from [facility] Radiology called and asked if provider wanted to a barium swallow done which is done with ST. documented in this encounterMercy Health [facility]05-23-2022 Miscellaneous Notes* Telephone Encounter - Mary Ann Rodriguez LPN - 12/07/2021 11:19 AM EDT Patient returned call and went over results, notes from Dr Bradford with understanding. Repeated directions so patient could write down information. * Telephone Encounter - Aspen Bell LPN - 12/07/2021 11:13 AM EDT Left message for pt to contact office. Aspen Bell LPN * Telephone Encounter - Homer Bradford MD - 12/06/2021 7:41 PM EDT Let patient know lipid panel shows Trigs slightly elevated at 160 (goal<150),, HDL low at 41 (goal>50) and LDL is ok at 73. Advise work on decreased fat in diet and increased walking for exercise. A1c was ok. However his kidnies are showing worsening impairment. I want her to stop the Glucophage(metformin). With the fact that her kidnies are showing some decreased function I want her to decrease her lasix(furosimide) to just one 20 mg tablet a day. She sould also try to increase her water intake some. Need BMP rechecked in 2 weeks. Order placed. documented in this [facility] Miscellaneous Notes* Telephone Encounter - Rodger Walters Ma - 12/02/2021 1:45 PM EDT Pt notified via [employer]. * Telephone Encounter - Priyanka Chavez RN - 11/25/2021 1:54 PM EDT Attempted to contact patient a 2nd time to give provider's message below regarding refills. Left message for patient to call for update. Priyanka Chavez RN * Telephone Encounter - Aspen Bell LPN - 11/24/2021 11:56 AM EDT Left message for pt to contact office regarding refills. Aspen Bell LPN * Telephone Encounter - Homer Bradford MD - 11/23/2021 10:33 PM EDT Let patient know some of the meds she is requesting refills on I do not proscribe and she will needto contact her other providers for them. Neuro: Dr Calderón Topiramate (migraines) Melatonin (insomnia) Florinef (low Blood pressure) Amantadine dyskinesia) Psych: Dr Nisha Angeles (bipolar) Citalopram (depression) Cardio: Fish Metoprolol (HTN and A. Fib) Furosamide (edema) Eliquis (for her A. Fib) Urology: Dr. Anjali Black ( UTI's) meds below were filled by [facility] Aldactone Metformine Hyoscyamine Omeprazole Signed Prescriptions Disp Refills citalopram hydrobromide (CELEXA) 10 mg tablet Sig: Take 1 tablet by mouth once daily. Per psych, Dr. Nisha HEART: No Authorizing Provider: HOMER BRADFORD amantadine HCl (SYMMETREL) 100 mg capsule Sig: Take 1 capsule by mouth twice daily. Per NeuroDr. Stephane: No Authorizing Provider: HOMER BRADFORD apixaban (ELIQUIS) 5 mg tab(s) Sig: Take 1 tablet by mouth twice daily. Per CardioAlexandr: No Authorizing Provider: HOMER BRADFORD fludrocortisone (FLORINEF) 0.1 mg tablet Sig: Take 1 tablet by mouth once daily. Per NeuroDr. Stephane: No Authorizing Provider: HOMER BRADFORD furosemide (LASIX) 20 mg tablet Sig: Take 1 tablet by mouth twice daily. Per cardioAlexandr: No Authorizing Provider: HOMER BRADFORD hyoscyamine SR (LEVBID) 0.375 mg 12 hr tablet 60 tablet 5 Sig: Take 1 tablet by mouth twice daily. PATY: No Authorizing Provider: HOMER BRADFORD melatonin 10 mg cap Sig: Take 1 capsule by mouth daily at bedtime. Per NeuroDr. Stephane: No Authorizing Provider: HOMER BRADFORD metFORMIN (GLUCOPHAGE) 500 mg tablet 30 tablet 5 Sig: Take 1 tablet by mouth daily with breakfast. PATY: No Authorizing Provider: HOMER BRADFORD metoprolol tartrate, short acting, (LOPRESSOR) 25 mg tablet Sig: Take 1 tablet by mouth twice daily. Per Cardio, Alexandr PATY: No Authorizing Provider: HOMER BRADFORD omeprazole (PRILOSEC) 40 mg capsule 30 capsule 5 Sig: Take 1 capsule by mouth once daily. PATY: No Authorizing Provider: HOMER BRADFORD QUEtiapine ER (SEROQUEL XR) 200 mg 24 hr tablet Sig: Take 1 tablet by mouth twice daily. Per psych, Dr. Negrete PATY: No Authorizing Provider: HOMER BRADFORD spironolactone (ALDACTONE) 25 mg tablet 30 tablet 5 Sig: Take 1 tablet by mouth once daily. PATY: No Authorizing Provider: HOMER BRADFORD topiramate (TOPAMAX) 25 mg tablet Sig: Take 1 tablet by mouth twice daily. Per Neurology, Dr. Calderón PATY: No Authorizing Provider: HOMER BRADFORD lovastatin (MEVACOR) 20 mg tablet 30 tablet 5 Sig: TAKE 1 TABLET BY MOUTH DAILY AT BEDTIME. FOR CHOLESTEROL. PATY: No Authorizing Provider: HOMER BRADFORD mirabegron (MYRBETRIQ) 25 mg Tb24 30 tablet 1 Sig: Take 1 tablet by mouth once daily. Per Urology Dr. Anjali HEART: No Authorizing Provider: HOMER BRADFORD * Telephone Encounter - Priyanka Chavez RN - 11/20/2021 10:50 AM EDT Patient has been identified by name and date of : Yes Pharmacy phones for refill(s): Pending Prescriptions Disp Refills CITALOPRAM 10 MG TABLET 30 tablet Sig: Take 1 tablet by mouth once daily. PATY: No AMANTADINE HCL 100 MG CAPSULE 60 capsule Sig: Take 1 capsule by mouth twice daily. PATY: No APIXABAN 5 MG TABLET 60 tablet Sig: Take 1 tablet by mouth twice daily. PATY: No FLUDROCORTISONE 0.1 MG TABLET 30 tablet Sig: Take 1 tablet by mouth once daily. PATY: No FUROSEMIDE 20 MG TABLET 60 tablet Sig: Take 1 tablet by mouth twice daily. PATY: No HYOSCYAMINE ER 0.375 MG TABLET,EXTENDED RELEASE,12 HR 60 tablet Sig: Take 1 tablet by mouth twice daily. PATY: No MELATONIN 10 MG CAPSULE 30 capsule Sig: Take 1 capsule by mouth daily at bedtime. PATY: No METFORMIN 500 MG TABLET 30 tablet Sig: Take 1 tablet by mouth daily with breakfast. PATY: No METOPROLOL TARTRATE 25 MG TABLET 60 tablet Sig: Take 1 tablet by mouth twice daily. PATY: No MIRABEGRON ER 25 MG TABLET,EXTENDED RELEASE 24 HR 30 tablet Sig: Take 1 tablet by mouth once daily. PATY: No OMEPRAZOLE 40 MG CAPSULE,DELAYED RELEASE 30 capsule Sig: Take 1 capsule by mouth once daily. PATY: No QUETIAPINE ER 200 MG TABLET,EXTENDED RELEASE 24 HR 60 tablet Sig: Take 1 tablet by mouth twice daily. Per psych PATY: No SPIRONOLACTONE 25 MG TABLET 30 tablet Sig: Take 1 tablet by mouth once daily. PATY: No TOPIRAMATE 25 MG TABLET 60 tablet Sig: Take 1 tablet by mouth twice daily. PATY: No LOVASTATIN 20 MG TABLET 30 tablet Sig: TAKE 1 TABLET BY MOUTH DAILY AT BEDTIME. FOR CHOLESTEROL. PATY: No Date of last office visit in primary care: 10/14/21, NOV: 11/27/21 Last 2 Encounter Wt Readings: Date: Wt: 10/14/2021 108.7 kg (239 lb 9.6 oz) 07/21/2021 122 kg (269 lb) Previous labs/tests for medication: Diabetes: Hemoglobin A1C (%) Date Value 05/29/2021 6.0 11/20/2020 6.1 Cholesterol: HDL Cholesterol (mg/dL) Date Value 11/01/2017 41 HDL Cholesterol, Nonfasting (mg/dL) Date Value 05/29/2021 41 LDL Cholesterol (mg/dL) Date Value 11/01/2017 63 LDL Cholesterol, Nonfasting (mg/dL) Date Value 05/29/2021 73 ALT (U/L) Date Value 05/29/2021 11 Non HDL Cholesterol, Nonfasting (mg/dL) Date Value 05/29/2021 93 Blood Pressure: BUN (mg/dL) Date Value 05/29/2021 12 Sodium (mmol/L) Date Value 05/29/2021 142 Last 1 Encounter BP Readings: Date: BP: 10/14/2021 112/62 Blood Counts: WBC (k/uL) Date Value 12/08/2020 8.61 RBC (m/uL) Date Value 12/08/2020 4.36 Hematocrit (%) Date Value 12/08/2020 43.9 Hemoglobin (g/dL) Date Value 12/08/2020 13.6 Platelet Count (k/uL) Date Value 12/08/2020 261 Liver Function: ALT (U/L) Date Value 05/29/2021 11 AST (U/L) Date Value 05/29/2021 19 Potassium: No components found for: POT Please advise. Thank you. Priyanka Chavez RN documented in this [facility]05-13-[facility]22 History of Present illness Narrative* Homer Bradford MD - 11/27/2021 2:35 PM EDT Chief Complaint Patient presents with: 6 Month Exam HPI Pernell Rodriguez is a 61 year old female who presents here today for Above Complaints. and Chronic Medical Conditions.. Patient with Hx of copd, DM 2, GERD, CAD, Hx of CVA, IBS, urinary incontinence as well as those reviewed and addressed below and in ROS. Patient continues to see , Cardio and Neurology for speciality care. [facility]. Patient overall doing okay. Was just released from long-term after having pneumonia and not being able to walk. Working on getting back into her speciality providers. These were reviewed with her mattress spring encaser whowas with her during appt today. Past medical history, appointments, medications, allergies reviewed. Previous Medical History PAST MEDICAL HISTORY Diagnosis Date ASHD (arteriosclerotic heart disease) 10/25/[address] Goins Bilateral leg edema 04/25/2015 Bipolar affective disorder (HCC) 04/25/[address] Colindres Chest pain 02/14/[address] Jacob in [facility]. Had a normal cardiac CTA in 2009 with no calcium. Chronic back pain greater than 3 months duration 04/02/2015 Chronic insomnia 03/12/2020 Ilya Calderón ([facility]) on melatonin. Chronic obstructive pulmonary disease (HCC) 04/25/2015 Chronic pain 01/14/2014 Constipation 02/12/2014 [place] or callus 11/16/2015 Current use of proton pump inhibitor 10/11/2017 CVA (cerebral infarction) 01/14/2014 Diabetic eye exam (HCC) 01/14/[address] Sanchez last done 03/02/2019 Diabetic foot (HCC) 01/14/[address] Martins Extrapyramidal reaction 01/14/2014 Gastroesophageal reflux disease without esophagitis 04/25/2015 History of CVA (cerebrovascular accident) 04/25/[address] Ilya Calder[facility] ([facility]) Hives 01/14/2014 Hypotension 01/14/2014 Sees Ilya Calderón ([facility]) and has her on fludrocortisone Incontinence of feces 07/08/2017 Irritable bowel syndrome with both constipation and diarrhea 04/28/2017 Low back pain 01/14/2014 Lumbosacral neuritis 04/16/2014 Major depressive disorder, recurrent episode, moderate ([facility]) 04/25/2015 On disability Migraine without aura and without status migrainosus, not intractable 04/28/[address] Calderón Mixed hyperlipidemia 01/14/2014 Mixed incontinence urge and stress (male)(female) 07/25/2018 Morbid obesity due to excess calories ([facility]) 10/27/2016 Muscle weakness (generalized) 07/25/2018 Myofascial pain 04/16/2014 Nodule of left lung 12/17/2015 CT 09/2018 still stable, no further CT's needed. Seen on CT of abd/pelv 11/2015. CT 06/2016 showed stable left nodule, Stable 09/2016 repeat 10/2017: stable repeat 06/2018 Paroxysmal atrial fibrillation (HCC) 11/23/2021 Perforation of left tympanic membrane 05/21/2019 chronic Physical deconditioning 04/02/2015 PMH - PAST MEDICAL HISTORY OF ovarian cysts PMH - PAST MEDICAL HISTORY OF bladder tipped, has incontience PMH - PAST MEDICAL HISTORY OF irregular heart beat Smoker 11/20/2020 Started age 15 at 1.5 PPD Stage 3b chronic kidney disease (HCC) 11/24/2020 Tardive dyskinesia 03/12/2020 [facility] Type 2 diabetes mellitus without complication ([facility]) 04/25/2015 Urinary incontinence 07/08/2017 Previous Surgical History PAST SURGICAL HISTORY Procedure Laterality Date *STRESS TEST PC 05/06/2016 WNL 2D ECHO (EXEP) 01/14/2014 EF=65% Trival [place], TI, PI, LA enlarged. CARPAL TUNNEL Bilateral 08/28 and 09/25 COLONOSCOPY FLX DX W/COLLJ SPEC WHEN PFRMD 2011 [facility] Colonoscopy, no polyps repeat 10 yrs CRYOCAUTERY OF CERVIX or 1990s twice DILATION & CURETTAGE DX&/THER NONOBSTETRIC Dilation & curettage ESOPHAGOGASTRODUODENOSCOPY TRANSORAL DIAGNOSTIC EGD LIG/TRNSXJ FLP TUBE ABDL/VAG APPR UNI/BI Tubal ligation PAST SURGICAL HISTORY OF 07/2015 had left medial elbow sugery but can't explain for what. PAST SURGICAL HISTORY OF Right 2012 repair rotator cuff and bone spurs PAST SURGICAL HISTORY OF 09/09/2020 bladder interstim for overactive bladder per Dr. Alba PAST SURGICAL HISTORY OF cholecystectomy PT ED UROLOGY 08/2020 IPG Family History FAMILY HISTORY Problem Relation Age of Onset Hypertension Mother Diabetes Mother other (hysterectomy) Mother fibroids other (hysterectomy) Maternal Grandmother fibroids Cancer Paternal Aunt Heart Son irregular heart beat Patient Allergies ALLERGIES Allergen Reactions Penicillins Hives Tetanus, Diphtheria* Swelling local reaction Benztropine Unknown Diazepam Unknown Imodium [Loperamide] Other: See Comments Chest pain Mellaril [Thioridaz* GI Upset Pneumovax 23 [Pneum* Intolerance Sulfa (Sulfonamide * GI Upset Causes vomiting and rash Tegretol [Carbamaze* GI Upset Current Medications Current Outpatient Medications on File Prior to Visit Medication Sig citalopram hydrobromide (CELEXA) 10 mg tablet Take 1 tablet by mouth once daily. Per psych, Dr. Negrete amantadine HCl (SYMMETREL) 100 mg capsule Take 1 capsule by mouth twice daily. Per NeuroDr. Calderón apixaban (ELIQUIS) 5 mg tab(s) Take 1 tablet by mouth twice daily. Per Cardio, Fish fludrocortisone (FLORINEF) 0.1 mg tablet Take 1 tablet by mouth once daily. Per NeuroDr. Calderón furosemide (LASIX) 20 mg tablet Take 1 tablet by mouth twice daily. Per cardio, Fish hyoscyamine SR (LEVBID) 0.375 mg 12 hr tablet Take 1 tablet by mouth twice daily. melatonin 10 mg cap Take 1 capsule by mouth daily at bedtime. Per NeuroDr. Calderón metFORMIN (GLUCOPHAGE) 500 mg tablet Take 1 tablet by mouth daily with breakfast. omeprazole (PRILOSEC) 40 mg capsule Take 1 capsule by mouth once daily. QUEtiapine ER (SEROQUEL XR) 200 mg 24 hr tablet Take 1 tablet by mouth twice daily. Per psych, Dr. Negrete lovastatin (MEVACOR) 20 mg tablet TAKE 1 TABLET BY MOUTH DAILY AT BEDTIME. FOR CHOLESTEROL. mirabegron (MYRBETRIQ) 25 mg Tb24 Take 1 tablet by mouth once daily. Per Urology Dr. Alba traZODone (DESYREL) 100 mg tablet daily at bedtime. insulin needles, DISPOSABLE, (PEN NEEDLE) 31 gauge x 5/16 Use one needle per dose per sliding scale bisacodyl (DULCOLAX, BISACODYL,) 10 mg supp 1 Suppository by RECTAL route once daily as needed for constipation. ipratropium-albuterol (DUONEB) 0.5 mg-3 mg(2.5 mg base)/3 mL nebu Inhale 3 mL as instructed every 3hours as needed for wheezing/shortness of breath. For SOB related to ACUTE RESPIRATORY FAILURE WITHHYPOXIA (J96.01) while awake albuterol HFA (VENTOLIN HFA) 90 mcg/actuation inhaler INHALE 2 PUFFS INSTRUCTED EVERY FOUR HOURSAS NEEDED nitroglycerin sublingual (NITROQUICK) 0.4 mg SL tablet Dissolve 1 tablet under the tongue every 5 minutes as needed for chest pain. rizatriptan (MAXALT) 10 mg tablet Take 1 tablet by oral route every 2 hours no more than 2 in 24 hours sodium chloride 0.9 % soln Use 2 Sprays in the nose every 6 hours as needed. Docosahexanoic Acid-Eicosapent (FISH OIL) 120-180 mg capsule Take 2 g by mouth once daily. hydrocortisone (ANUSOL-HC) 2.5 % rectal cream by RECTAL route twice daily. multivitamin (DAILY-JG) tablet Take 1 tablet by mouth every morning. COMPOUNDED PRESCRIPTION Adult diapers size XL Change diaper up to seven times a day. # 210 diapers With 5 refills Dx: R32 and R15.9 omega-3 fatty acids 1,000 mg cap Take 2 capsules by mouth once daily. LORazepam (ATIVAN) 0.5 mg tab Take 1 tablet by mouth twice daily as needed (anxiety). metoprolol tartrate, short acting, (LOPRESSOR) 25 mg tablet Take 1 tablet by mouth twice daily. Alexandr Pearson (Patient not taking: Reported on 11/27/2021 ) spironolactone (ALDACTONE) 25 mg tablet Take 1 tablet by mouth once daily. topiramate (TOPAMAX) 25 mg tablet Take 1 tablet by mouth twice daily. Per Neurology, Dr. Calderón (Patient not taking: Reported on 11/27/2021 ) insulin lispro (HUMALOG KWIKPEN) 100 unit/mL Inject as per sliding scale: If 150 - 189 = 1 unit; 190 - 229 = 2 units; 230 -269 = 3 units; 270 - 309 = 4 units; 310 - 349 = 5 units; 350 - 399 = 6 units; 400 - 449 = 7 units > call Physician, subcutaneously three times a day for DM (Patient not taking: Reported on 11/27/2021 ) No current facility-administered medications on file prior to visit. Social History Social History Tobacco Use Smoking status: Current Every Day Smoker Packs/day: 1.50 Years: 50.00 Pack years: 75.00 Types: Cigarettes Smokeless tobacco: Never Used Vaping Use Vaping Use: Never used Substance Use Topics Alcohol use: No Drug use: No Review of Symptoms REVIEW OF SYSTEMS GENERAL: No, malaise or fevers. Has lost weight with the pneumonia. NECK: thinks there might be a swelling in her neck. RESPIRATORY: Negative for cough, hemoptysis. Feels her breathing has gotten worse since being home. CARDIOVASCULAR: Negative for chest pain, leg swelling, hypertension, CHF or palpitations GI: No nausea, vomiting, or diarrhea and No heartburn or reflux symptoms PSYCH: seeing psych ENDOCRINE: gets some symptoms of low BS's but does not have a meter to check NEURO: No history of headaches, syncope, paralysis, seizures or increased in her tremors EXAM: BP 96/64 Pulse 68 Temp 36.8 C (98.2 F) (Right Tympanic) Resp 20 Wt 106.1 kg (233 lb 12.8 oz) LMP 02/22/2006 BMI 41.42 kg/m Last 4 Encounter Wt Readings: Date: Wt: 11/27/2021 106.1 kg (233 lb 12.8 oz) 10/14/2021 108.7 kg (239 lb 9.6 oz) 07/21/2021 122 kg (269 lb) 05/29/2021 117.5 kg (259 lb) General Appearance: Well appearing, alert, in no acute distress, well-hydrated, well nourished. andMorbidly obese. Eyes: Anicteric sclera. Pupils are equally round and reactive to light. Extraocular movements are intact. . Neck: Supple, no adenopathy; thyroid symmetric, normal size, no bruits. Lungs: Lungs clear to auscultation. No wheezing, rhonchi, rales.. Heart: RRR without murmur, gallop, or rubs. No ectopy. Abdomen: Normal abdominal exam, Abdomen soft, non-tender. Bowel sounds normal. No masses, organomegaly. Extremities: No deformities, edema, skin discoloration. Musculoskeletal: Muscular strength intact. Peripheral Pulses: Normal. Neurologic: Gait; Assisted with walker. Sensation to light touch and crainal nerves 2-12 intact.. Health Maintenance List SHINGRIX VACCINE(1 of 2) Never done LUNG CANCER SCREENING due on 09/30/2019 COLORECTAL CANCER SCREENING due on 09/27/2021 HBA1C due on 11/26/2021 URINE ALBUMIN:CREATININE RATIO due on 11/25/2021 DILATED RETINAL EXAM due on 11/25/2021 COVID-19 VACCINE(1) due on 05/29/2022 HEMOGLOBIN/HEMATOCRIT due on 12/08/2021 LDL CHOLESTEROL due on 05/29/2022 DIABETIC FOOT EXAM due on 05/29/2022 SERUM CREATININE due on 05/29/2022 MAMMOGRAM due on 06/24/2022 ANNUAL PCP TEAM CHRONIC DISEASE VISIT due on 11/27/2022 PAP TESTING due on 05/22/2023 HPV TESTING due on 05/22/2023 HEPATITIS C SCREENING Completed HIV SCREENING Completed MENINGOCOCCAL CONJUGATE Aged Out DTAP,TDAP,TD Discontinued SPIROMETRY Discontinued ONE PNEUMOVAX PRIOR TO AGE 65 Discontinued INFLUENZA Discontinued Data reviewed Component Latest Ref Rng & Units 12/08/2020 05/29/2021 WBC 3.70 - 11.00 k/uL 8.61 RBC 3.90 - 5.20 m/uL 4.36 Hemoglobin 11.5 - 15.5 g/dL 13.6 Hematocrit 36.0 - 46.0 % 43.9 MCV 80.0 - 100.0 fL 100.7 (H) MCH 26.0 - 34.0 pG 31.2 MCHC 30.5 - 36.0 g/dL 31.0 RDW-CV 11.5 - 15.0 % 13.0 Platelet Count 150 - 400 k/uL 261 MPV 9.0 - 12.7 fL 11.0 Neut% % 56.7 Abs Neut (ANC) 1.45 - 7.50 k/uL 4.86 Lymph% % 31.0 Abs Lymph 1.00 - 4.00 k/uL 2.67 Price% % 9.2 Abs Price <0.87 k/uL 0.79 Eosin% % 2.8 Abs Eosin <0.46 k/uL 0.24 Baso% % 0.3 Abs Baso <0.11 k/uL 0.03 Nucleated Reds 0 /100 WBC 0.0 Absolute nRBC <0.01 k/uL <0.01 Diff Type Auto Diff Protein, Total 6.3 - 8.0 g/dL 6.4 Albumin 3.9 - 4.9 g/dL 3.8 (L) Calcium 8.5 - 10.2 mg/dL 9.2 Bilirubin, Total 0.2 - 1.3 mg/dL 0.3 Alkaline Phosphatase 34 - 123 U/L 63 AST 13 - 35 U/L 19 Glucose 74 - 99 mg/dL 90 BUN 7 - 21 mg/dL 12 Creatinine 0.58 - 0.96 mg/dL 1.23 (H) Sodium 136 - 144 mmol/L 142 Potassium 3.7 - 5.1 mmol/L 3.8 Chloride 97 - 105 mmol/L 107 (H) CO2 22 - 30 mmol/L 26 Anion Gap 9 - 18 mmol/L 9 ALT 7 - 38 U/L 11 eGFR- 54 eGFR-All Other Races . 45 Total Cholesterol, Nonfasting <200 mg/dL 134 Triglycerides, Nonfasting <150 mg/dL 102 HDL Cholesterol, Nonfasting >39 mg/dL 41 LDL Cholesterol, Nonfasting <100 mg/dL 73 Non HDL Cholesterol, Nonfasting <130 mg/dL 93 VLDL Cholesterol, Nonfasting <30 mg/dL 20 Total Chol/HDL Ratio, Nonfasting <5.10 mg/dL 3.27 LDL/HDL Ratio, Nonfasting <2.54 mg/dL 1.78 Hemoglobin A1C 4.3 - 5.6 % 6.0 (H) Estimated Average Glucose mg/dL 126 A/P ASSESSMENT/PLAN: 1. Type 2 diabetes mellitus without complication, with long-term current use of insulin ([facility]) - ICD9: 250.00, V58.67, ICD10: E11.9, Z79.4 (primary diagnosis) - Will await labs to see if any changes need. Will hold the short acting insulin for sliding scale since she was never on it before. - Continue current medications: Except hold the insulin. - Encouraged regular aerobic exercise and weight loss - BP goal of <130/80 - LDL goal of <100 Check - COMP METABOLIC PANEL - HGB A1C - LIPID PANEL, NONFASTING - ALBUMIN/CREAT RATIO RND UR 2. Diabetic eye exam (HCC) - ICD9: V72.0, 250.00, ICD10: Z01.00, E11.9 To get up to date 3. Mixed hyperlipidemia - ICD9: 272.2, ICD10: E78.2 - to be determined upon return of lab results - Encouraged following a low fat, low cholesterol diet. - Discussed the benefits of regular aerobic exercise and weight loss. - Encouraged following a low carbohydrate, healthy oil intake diet. - Continue current therapy. check - COMP METABOLIC PANEL - LIPID PANEL, NONFASTING 4. Gastroesophageal reflux disease without esophagitis - ICD9: 530.81, ICD10: K21.9 - Continue treatment with Prilosec 40 mg QD 5. Stage 3b chronic kidney disease (HCC) - ICD9: 585.3, ICD10: N18.32 Check - COMP METABOLIC PANEL 6. Bilateral leg edema - ICD9: 782.3, ICD10: R60.0 - None on exam and taking lasix. 7. Bipolar affective disorder, remission status unspecified (HCC) - ICD9: 296.80, ICD10: F31.9 - Management per psych 8. Major depressive disorder, recurrent episode, moderate (HCC) - ICD9: 296.32, ICD10: F33.1 - As per #7 9. Paroxysmal atrial fibrillation (HCC) - ICD9: 427.31, ICD10: I48.0 - Management per cardio 10. ASHD (arteriosclerotic heart disease) - ICD9: 414.00, ICD10: I25.10 - As per #9 11. Chronic obstructive pulmonary disease, unspecified COPD type (HCC) - ICD9: 496, ICD10: J44.9 - management per Pulm and needs to get back in with them 12. Migraine without aura and without status migrainosus, not intractable - ICD9: 346.10, ICD10: G43.009 - Management per Neuro 13. Hypotension, unspecified hypotension type - ICD9: 458.9, ICD10: I95.9 - As per #12 14. History of CVA (cerebrovascular accident) - ICD9: V12.54, ICD10: Z86.73 - As per #12 15. Chronic insomnia - ICD9: 780.52, ICD10: F51.04 - As per #12 16. Tardive dyskinesia - ICD9: 333.85, ICD10: G24.01 - As per #12 17. Morbid obesity due to excess calories (HCC) - ICD9: 278.01, ICD10: E66.01 Weight decreasing - Behavioral intervention 18. Smoker - ICD9: 305.1, ICD10: F17.200 - Cessation encouraged. - Counseling was given focusing on the harmful effects of this addiction especially given the patient's medical condition(s) which will be worsened because of the chemicals in tobacco. 19. Extrapyramidal reaction - ICD9: 333.90, ICD10: G25.9 Seeing Neuro 20. Mixed incontinence urge and stress (male)(female) - ICD9: 788.33, ICD10: N39.46 - Management per Urology. meds recently refilled. F/u 6 months complete PE Homer Bradford MD documented in [facility]22 Miscellaneous Notes* Telephone Encounter - Carlota Baez LPN - 11/19/2021 4:15 PM EDT FAXED PRINTED ORDER TO [facility] FOR THEM TO CALL PT TO ARRANGE. * Telephone Encounter - Priyanka Duvall Pss - 11/19/2021 1:51 PM EDT Nicolasa and patient was calling to arrange swallow evaluation that was ordered on 10/14/[address] Dodd. Patient does not wish to travel and would like this order sent to [facility] please.They also would like Nicolasa contacted to schedule this and her number has been added to the account. Could we please forward that information to [facility]. documented in this encounterMer[facility]04-05-2022 Miscellaneous Notes* Telephone Encounter - Amanda Correia Ma - 10/20/2021 1:55 PM EDT Left detailed message on nicolasa confidnetial Amanda Correia Ma * Telephone Encounter - Homer Bradford MD - 10/20/2021 12:22 PM EDT Script for glucose meter ready to be faxed to [employer]. Advise patient and mattress spring encaser Nicolasa that Pernell's respiratory disease is managed per her instrument repairer Dr. Wilfredo Christopher and need to contact him for the nebulizer order. * Telephone Encounter - Hannah Kwon LPN - 10/20/2021 11:25 AM EDT Pt was in [facility] for respiratory failure, was then sent to [facility] until 10/07/21. Pt on line as well as mattress spring encaser Nicolasa requesting an order for a nebulizer & a glucometer, pending. Pt will use [employer]. Hannah Kwon LPN documented in this encounterMer[facility]04-04-2022 Miscellaneous Notes* Telephone Encounter - Carlota Baez LPN - 10/19/2021 10:47 AM EDT When pt see Dr. Alcocer 10/14/21 he completed rx for grab bars and toilet seat. They were faxed to [employer]. rec'd fax from [employer] saying they do not provide these. Message left to pt with this info and requested return call to which DME company she would like them sent to now. documented in [facility] encounter[facility] Miscellaneous Notes* Telephone Encounter - Aspen Bell LPN - 10/16/2021 8:50 AM EDT Yanna advised of Dr Bradford's message and instructions. She verbalizes understanding. Aspen Bell LPN * Telephone Encounter - Homer Bradford MD - 10/15/2021 4:03 PM EDT Let pharmacist know we have no order in our system for 1% sodium chloride nasal spay and would advise patient to just get generic form of OTC [place] nasal spray. * Telephone Encounter - Umm York RN - 10/15/2021 1:38 PM EDT Yanna from [facility] calls and states that patient's insurance will not cover sodium chloride 0.9% solution. Yanna states that insurance will cover sodium chloride 1% solution 30 mL bottle. Yanna asking if provider wants to change prescription to this? Please review and advise, Umm York RN documented in this encounterMer[facility]03-31-[facility]22 Miscellaneous Notes* Telephone Encounter - Ana Cardoza LPN - 10/15/2021 11:40 AM EDT Yanna with [facility] calling to request for pen needles for pt. Patient has been identified by name and date of : Yes Patient phones for refill(s): Pending Prescriptions Disp Refills PEN NEEDLE, DIABETIC 31 GAUGE X 5/16 100 Each 11 Sig: Use one needle per dose per sliding scale Date of last office visit in primary care: 10/14/21 next apt 5/13/22 Last 2 Encounter Wt Readings: Date: Wt: 10/14/2021 108.7 kg (239 lb 9.6 oz) 07/21/2021 122 kg (269 lb) Previous labs/tests for medication: Diabetes: Hemoglobin A1C (%) Date Value 05/29/2021 6.0 11/20/2020 6.1 Please advise. Thank you. Ana Cardoza LPN documented in this encounterMer[facility]03-30-[facility]22 History of Present illness Narrative* Dick Dodd MD - 10/14/2021 4:37 PM EDT This note was created using blueKiwi. Subjective Pernell Rodriguez is a 61 year old female. PCP Homer Bradford MD. Patient presents with: Shelter Discharge Pernell was here with her tar worker. They need new prescriptions for her chronic medications sent [facility]. She was discharged from [facility] 10/07/21 with limited planning and no prescriptions. She was admitted 09/07/21 after admission at [facility] on 08/25 for bilateral pneumonia, respiratory failure with hypoxia, metabolic encephalopathy, STEVEN on CKD, atrial fibrillation, bipolar disorder, and diabetes mellitus. She was much better and off oxygen. She was on thickened liquids at the [facility] but since being back home, she was back on regular food. She saw pulmonary before her discharge from the [facility] and her respiratory status was assessed to have improved. She needed DME due to ongoing general weaknessand limited mobility in the home. No home health or home PT was ordered. 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 Review of Systems Constitutional: Positive for fatigue. Negative for chills and fever. HENT: Negative for congestion, sore throat and trouble swallowing. Respiratory: Positive for cough and shortness of breath. Negative for chest tightness. Cardiovascular: Negative for chest pain, palpitations and leg swelling. Gastrointestinal: Positive for diarrhea. Negative for abdominal pain, nausea and vomiting. Loose stools the past few days. Musculoskeletal: Positive for gait problem. Neurological: Negative for dizziness and headaches. ACTIVE PROBLEM LIST Hives Extrapyramidal Reaction Hypotension Diabetic Eye Exam (Hcc) Chronic Pain Diabetic Foot (Hcc) Low Back Pain Mixed Hyperlipidemia Chest Pain Lumbosacral Neuritis Myofascial Pain Hypokalemia Ashd (Arteriosclerotic Heart Disease) Physical Deconditioning Chronic Back Pain Greater Than 3 Months Duration Type 2 Diabetes Mellitus Without Complication (Hcc) Gastroesophageal Reflux Disease Without Esophagitis Chronic Obstructive Pulmonary Disease (Hcc) History of Cva (Cerebrovascular Accident) Bilateral Leg Edema Bipolar Affective Disorder (Hcc) Major Depressive Disorder, Recurrent Episode, Moderate (Hcc) [place] Or Callus Nodule of Left Lung Morbid Obesity Due to Excess Calories (Hcc) Colon Cancer Screening Migraine Without Aura and Without Status Migrainosus, Not Intractable Irritable Bowel Syndrome With Both Constipation and Diarrhea Urinary Incontinence Incontinence of Feces Current Use of Proton Pump Inhibitor Encounter for Gynecological Examination Without Abnormal Finding Muscle Weakness (Generalized) Mixed Incontinence Urge and Stress (Male)(female) Perforation of Left Tympanic Membrane Tardive Dyskinesia Chronic Insomnia Medication Management Smoker Stage 3b Chronic Kidney Disease (Hcc) Left Hip Pain Trochanteric Bursitis of Left Hip Social History Tobacco Use Smoking status: Current Every Day Smoker Packs/day: 1.50 Years: 50.00 Pack years: 75.00 Types: Cigarettes Smokeless tobacco: Never Used Vaping Use Vaping Use: Never used Substance Use Topics Alcohol use: No Drug use: No ALLERGIES Allergen Reactions Penicillins Hives Tetanus, Diphtheria* Swelling local reaction Benztropine Unknown Diazepam Unknown Imodium [Loperamide] Other: See Comments Chest pain Mellaril [Thioridaz* GI Upset Pneumovax 23 [Pneum* Intolerance Sulfa (Sulfonamide * GI Upset Causes vomiting and rash Tegretol [Carbamaze* GI Upset Current Outpatient Medications Medication Sig citalopram hydrobromide (CELEXA) 10 mg tablet Take 1 tablet by mouth once daily. amantadine HCl (SYMMETREL) 100 mg capsule Take 1 capsule by mouth twice daily. fludrocortisone (FLORINEF) 0.1 mg tablet Take 1 tablet by mouth once daily. hyoscyamine SR (LEVBID) 0.375 mg 12 hr tablet Take 1 tablet by mouth twice daily. ipratropium-albuterol (DUONEB) 0.5 mg-3 mg(2.5 mg base)/3 mL nebu Inhale 3 mL as instructed every 3hours as needed for wheezing/shortness of breath. For SOB related to ACUTE RESPIRATORY FAILURE WITHHYPOXIA (J96.01) while awake albuterol HFA (VENTOLIN HFA) 90 mcg/actuation inhaler INHALE 2 PUFFS INSTRUCTED EVERY FOUR HOURSAS NEEDED lovastatin (MEVACOR) 20 mg tablet TAKE 1 TABLET BY MOUTH DAILY AT BEDTIME. FOR CHOLESTEROL. melatonin 10 mg cap Take 1 capsule by mouth daily at bedtime. metFORMIN (GLUCOPHAGE) 500 mg tablet Take 1 tablet by mouth daily with breakfast. metoprolol tartrate, short acting, (LOPRESSOR) 25 mg tablet Take 1 tablet by mouth twice daily. omeprazole (PRILOSEC) 40 mg capsule Take 1 capsule by mouth once daily. rizatriptan (MAXALT) 10 mg tablet Take 1 tablet by oral route every 2 hours no more than 2 in 24 hours QUEtiapine ER (SEROQUEL XR) 200 mg 24 hr tablet Take 1 tablet by mouth twice daily. Per psych spironolactone (ALDACTONE) 25 mg tablet Take 1 tablet by mouth once daily. topiramate (TOPAMAX) 25 mg tablet Take 1 tablet by mouth twice daily. Docosahexanoic Acid-Eicosapent (FISH OIL) 120-180 mg capsule Take 2 g by mouth once daily. hydrocortisone (ANUSOL-HC) 2.5 % rectal cream by RECTAL route twice daily. multivitamin (DAILY-JG) tablet Take 1 tablet by mouth every morning. COMPOUNDED PRESCRIPTION Adult diapers size XL Change diaper up to seven times a day. # 210 diapers With 5 refills Dx: R32 and R15.9 omega-3 fatty acids 1,000 mg cap Take 2 capsules by mouth once daily. LORazepam (ATIVAN) 0.5 mg tab Take 1 tablet by mouth twice daily as needed (anxiety). apixaban (ELIQUIS) 5 mg tab(s) Take 1 tablet by mouth twice daily. bisacodyl (DULCOLAX, BISACODYL,) 10 mg supp 1 Suppository by RECTAL route once daily as needed for constipation. furosemide (LASIX) 20 mg tablet Take 1 tablet by mouth twice daily. insulin lispro (HUMALOG KWIKPEN) 100 unit/mL Inject as per sliding scale: If 150 - 189 = 1 unit; 190 - 229 = 2 units; 230 -269 = 3 units; 270 - 309 = 4 units; 310 - 349 = 5 units; 350 - 399 = 6 units; 400 - 449 = 7 units > call Physician, subcutaneously three times a day for DM mirabegron (MYRBETRIQ) 25 mg Tb24 Take 1 tablet by mouth once daily. nitroglycerin sublingual (NITROQUICK) 0.4 mg SL tablet Dissolve 1 tablet under the tongue every 5 minutes as needed for chest pain. sodium chloride 0.9 % soln Use 2 Sprays in the nose every 6 hours as needed. No current facility-administered medications for this visit. Objective BP 112/62 (BP Site: Left Arm, BP Position: Sitting, BP Cuff Size: Large Adult) Pulse 76 Temp 36.2 C (97.2 F) (Temporal Artery) Resp 18 Wt 108.7 kg (239 lb 9.6 oz) LMP 02/22/2006 SpO2 95% BMI 42.44 kg/m Physical Exam Constitutional: General: She is not in acute distress. Appearance: She is obese. HENT: Head: Normocephalic. Eyes: Conjunctiva/sclera: Conjunctivae normal. Cardiovascular: Rate and Rhythm: Normal rate and regular rhythm. Heart sounds: No murmur heard. No gallop. Pulmonary: Effort: No respiratory distress. Breath sounds: No wheezing or rales. Abdominal: Palpations: Abdomen is soft. Tenderness: There is no abdominal tenderness. Musculoskeletal: Right lower leg: No edema. Left lower leg: No edema. Neurological: General: No focal deficit present. Mental Status: She is alert. Motor: Weakness present. Gait: Gait abnormal. Comments: Unable to transfer, ambulatory with rollator. Psychiatric: Mood and Affect: Mood normal. Behavior: Behavior normal. Assessment and Plan 1. History of recent pneumonia - ICD9: V12.61, ICD10: Z87.01 (primary diagnosis) Resolved. 2. History of respiratory failure - ICD9: V12.69, ICD10: Z87.09 Off oxygen. 3. Physical deconditioning - ICD9: 799.3, ICD10: R53.81 - I'll suggest HH, PT, ASSOCIATE ACCOUNTANT be arranged by PCP. - EXTRA WIDE/HEAVY DUTY COMMODE CHAIR, - RAISED TOILET SEAT - TOILET RAIL, EACH 4. Muscle weakness (generalized) - ICD9: 728.87, ICD10: M62.81 - EXTRA WIDE/HEAVY DUTY COMMODE CHAIR, - RAISED TOILET SEAT - TOILET RAIL, EACH 5. Dysphagia, unspecified type - ICD9: 787.20, ICD10: R13.10 - SWALLOW EVALUATION 6. Type 2 diabetes mellitus without complication, with long-term current use of insulin (HCC) - ICD9: 250.00, V58.67, ICD10: E11.9, Z79.4 The patient is new to ri. 7. Gastroesophageal reflux disease without esophagitis - ICD9: 530.81, ICD10: K21.9 8. Chronic obstructive pulmonary disease, unspecified COPD type (HCC) - ICD9: 496, ICD10: J44.9 9. Irritable bowel syndrome with both constipation and diarrhea - ICD9: 564.1, ICD10: K58.2 Medication list from Jeffery Villatoro was reviewed. Discharge summary from [facility] and pulmonary follow up report were reviewed. During this patient visit I have spent approximately 30 minutes out of 40 in counseling regarding medications and coordinating care. Follow up with PCP November 27 as scheduled. Dick Dodd MD documented in this encounterMer[facility] History of Present illness Narrative* Karen Rodriguez, RT(R) - 11/20/2020 3:40 PM EDT Radiology Service Progress Note PATIENT NAME: Pernell Rodriguez DATE OF SERVICE: November 20, 2020 TIME: 4:06 PM PATIENT IDENTITY VERIFICATION COMPLETED USING TWO (2) IDENTIFIERS: Name and Date of confirmedby patient verbally. FALL SCREENING: Has the patient had 2 falls in the last year or 1 fall with injury or currently using an Ambulatory Assistive Device (Walker, Cane, Wheelchair, Crutches, etc.)? Yes, Patient High Riskfor Falls What interventions were put in place to prevent falls during this visit? Instructed Patient to Callfor Help if Needed, Offered Assistance with Transfers/Clothing and Increased Observations by Caregivers PATIENT GENDER DATA: Female. status: : No status: NO. PATIENT RELEVANT IMPLANT DATA REVIEWED: Yes RADIOLOGY DEPARTMENT: General X-ray: Exam(s) Completed: Pelvis X-Ray: Pelvis with Hip Left PERIPHERAL IV DATA: Not applicable SIGNED BY: RT Heide(R) November 20, 2020 4:06 PM documented in this encounterMer[facility]12-22-2017 History of Past illness Narrative* Problem Noted Date Resolved Date Urinary incontinence 07/08/2017 11/28/2021 Overview: Seeing Dr. Anjali Benjamin adult exam 10/27/2016 10/15/2021 Overview: last done: 05/29/2021 documented as of this encounter (statuses as of 11/29/2021) [facility] of Past illness Narrative* Problem Noted Date Resolved Date Urinary incontinence 07/08/2017 11/28/2021 Overview: Seeing Dr. Anjali Benjamin adult exam 10/27/2016 10/15/2021 Overview: last done: 05/29/2021 documented as of this encounter (statuses as of 12/02/2021) [facility] of Past illness Narrative* Problem Noted Date Resolved Date Urinary incontinence 07/08/2017 11/28/2021 Overview: Seeing Dr. Anjali Benjamin adult exam 10/27/2016 10/15/2021 Overview: last done: 05/29/2021 documented as of this encounter (statuses as of 12/07/2021) [facility] of Past illness Narrative* Problem Noted Date Resolved Date Urinary incontinence 07/08/2017 11/28/2021 Overview: Seeing Dr. Anjali Benjamin adult exam 10/27/2016 10/15/2021 Overview: last done: 05/29/2021 documented as of this encounter (statuses as of 12/11/2021) [facility] illness Narrative* Problem Noted Date Resolved Date Urinary incontinence 07/08/2017 11/28/2021 Overview: Seeing Dr. Anjali Benjamin adult exam 10/27/2016 10/15/2021 Overview: last done: 05/29/2021 documented as of this encounter (statuses as of 12/16/2021) [facility] of [facility] illness Narrative* Problem Noted Date Resolved Date Urinary incontinence 07/08/2017 11/28/2021 Overview: Seeing Dr. Anjali Benjamin adult exam 10/27/2016 10/15/2021 Overview: last done: 05/29/2021 documented as of this encounter (statuses as of 12/22/2021) [facility] illness Narrative* Problem Noted Date Resolved Date Urinary incontinence 07/08/2017 11/28/2021 Overview: Seeing Dr. Anjali Benjamin adult exam 10/27/2016 10/15/2021 Overview: last done: 05/29/2021 documented as of this encounter (statuses as of 12/28/2021) [facility] illness Narrative* Problem Noted Date Resolved Date Urinary incontinence 07/08/2017 11/28/2021 Overview: Seeing Dr. Anjali Benjamin adult exam 10/27/2016 10/15/2021 Overview: last done: 05/29/2021 documented as of this encounter (statuses as of 01/04/2022) [facility] illness Narrative* Problem Noted Date Resolved Date Urinary incontinence 07/08/2017 11/28/2021 Overview: Seeing Dr. Anjali Benjamin adult exam 10/27/2016 10/15/2021 Overview: last done: 05/29/2021 documented as of this encounter (statuses as of 02/05/2022) [facility] of [facility] illness Narrative* Problem Noted Date Resolved Date Urinary incontinence 07/08/2017 11/28/2021 Overview: Seeing Dr. Anjali Benjamin adult exam 10/27/2016 10/15/2021 Overview: last done: 05/29/2021 documented as of this encounter (statuses as of 02/13/2022) [facility] illness Narrative* Problem Noted Date Resolved Date Urinary incontinence 07/08/2017 11/28/2021 Overview: Seeing Dr. Anjali Benjamin adult exam 10/27/2016 10/15/2021 Overview: last done: 05/29/2021 documented as of this encounter (statuses as of 02/15/2022) [facility] Narrative* Problem Noted Date Resolved Date Urinary incontinence 07/08/2017 11/28/2021 Overview: Seeing Dr. Anjali Benjamin adult exam 10/27/2016 10/15/2021 Overview: last done: 05/29/2021 documented as of this encounter (statuses as of 05/03/2022) [facility] Narrative* Problem Noted Date Resolved Date Urinary incontinence 07/08/2017 11/28/2021 Overview: Seeing Dr. Anjali Benjamin adult exam 10/27/2016 10/15/2021 Overview: last done: 05/29/2021 documented as of this encounter (statuses as of 05/05/2022) [facility] Narrative* Problem Noted Date Resolved Date Urinary incontinence 07/08/2017 11/28/2021 Overview: Seeing Dr. Alba documented as of this encounter (statuses as of 06/13/2022) [address]22-2017 History of Past illness Narrative* Problem Noted Date Resolved Date Urinary incontinence 07/08/2017 11/28/2021 Overview: Seeing Dr. Alba documented as of this encounter (statuses as of 06/14/2022) [facility] Narrative* Problem Noted Date Resolved Date Urinary incontinence 07/08/2017 11/28/2021 Overview: Seeing Dr. Alba documented as of this encounter (statuses as of 06/23/2022) [facility] Narrative* Problem Noted Date Resolved Date Urinary incontinence 07/08/2017 11/28/2021 Overview: Seeing Dr. Alba documented as of this encounter (statuses as of 07/21/2022) [facility] Narrative* Problem Noted Date Resolved Date Urinary incontinence 07/08/2017 11/28/2021 Overview: Seeing Dr. Alba documented as of this encounter (statuses as of 07/21/2022) [facility] Narrative* Problem Noted Date Resolved Date Urinary incontinence 07/08/2017 11/28/2021 Overview: Seeing Dr. Alba documented as of this encounter (statuses as of 07/28/2022) [facility] Narrative* Problem Noted Date Resolved Date Urinary incontinence 07/08/2017 11/28/2021 Overview: Seeing Dr. Alba documented as of this encounter (statuses as of 08/02/2022) [facility] Narrative* Problem Noted Date Resolved Date Urinary incontinence 07/08/2017 11/28/2021 Overview: Seeing Dr. Alba documented as of this encounter (statuses as of 08/05/2022) [facility] Narrative* Problem Noted Date Resolved Date Urinary incontinence 07/08/2017 11/28/2021 Overview: Seeing Dr. Alba documented as of this encounter (statuses as of 08/16/2022) [facility] Narrative* Problem Noted Date Resolved Date Urinary incontinence 07/08/2017 11/28/2021 Overview: Seeing Dr. Alba documented as of this encounter (statuses as of 09/16/2022) [facility]arr[facility]* Problem Noted Date Resolved Date Urinary incontinence 07/08/2017 11/28/2021 Overview: Seeing Dr. Alba documented as of this encounter (statuses as of 09/17/2022) [facility]arrative* Problem Noted Date Resolved Date Urinary incontinence 07/08/2017 11/28/2021 Overview: Seeing Dr. Alba documented as of this encounter (statuses as of 10/03/2022) [facility]arr[facility]* Problem Noted Date Resolved Date Urinary incontinence 07/08/2017 11/28/2021 Overview: Seeing Dr. Alba documented as of this encounter (statuses as of 10/05/2022) [facility]arrative* Problem Noted Date Resolved Date Urinary incontinence 07/08/2017 11/28/2021 Overview: Seeing Dr. Alba documented as of this encounter (statuses as of 10/05/2022) [facility]arr[facility]* Problem Noted Date Resolved Date Urinary incontinence 07/08/2017 11/28/2021 Overview: Seeing Dr. Alba documented as of this encounter (statuses as of 10/21/2022) [facility]* Problem Noted Date Resolved Date Urinary incontinence 07/08/2017 11/28/2021 Overview: Seeing Dr. Alba documented as of this encounter (statuses as of 10/21/2022) [facility]* Problem Noted Date Resolved Date Urinary incontinence 07/08/2017 11/28/2021 Overview: Seeing Dr. Alba documented as of this encounter (statuses as of 10/22/2022) [facility]* Problem Noted Date Resolved Date Urinary incontinence 07/08/2017 11/28/2021 Overview: Seeing Dr. Alba documented as of this encounter (statuses as of 11/18/2022) [facility]* Problem Noted Date Resolved Date Urinary incontinence 07/08/2017 11/28/2021 Overview: Seeing Dr. Alba documented as of this encounter (statuses as of 01/05/2023) [facility]* Problem Noted Date Resolved Date Urinary incontinence 07/08/2017 11/28/2021 Overview: Seeing Dr. Alba documented as of this encounter (statuses as of 01/12/2023) [facility]arr[facility]* Problem Noted Date Diagnosed Date Resolved Date Urinary incontinence 07/08/2017 022 Overview: Seeing Dr. Alba documented as of this encounter (statuses as of 02/03/2023) [facility]* Problem Noted Date Diagnosed Date Resolved Date Urinary incontinence 07/08/2017 022 Overview: Seeing Dr. Alba documented as of this encounter (statuses as of 02/15/2023) [facility]* Problem Noted Date Diagnosed Date Resolved Date Urinary incontinence 07/08/2017 022 Overview: Seeing Dr. Alba documented as of this encounter (statuses as of 02/20/2023) [facility]* Problem Noted Date Diagnosed Date Resolved Date Urinary incontinence 07/08/2017 022 Overview: Seeing Dr. Alba documented as of this encounter (statuses as of 03/01/2023) [facility]* Problem Noted Date Diagnosed Date Resolved Date Urinary incontinence 07/08/2017 022 Overview: Seeing Dr. Alba documented as of this encounter (statuses as of 03/01/2023) [facility]* Problem Noted Date Diagnosed Date Resolved Date Urinary incontinence 07/08/2017 022 Overview: Seeing Dr. Alba documented as of this encounter (statuses as of 03/11/2023) [facility]* Problem Noted Date Diagnosed Date Resolved Date Urinary incontinence 07/08/2017 022 Overview: Seeing Dr. Alba documented as of this encounter (statuses as of 03/17/2023) [facility]* Problem Noted Date Diagnosed Date Resolved Date Urinary incontinence 07/08/2017 022 Overview: Seeing Dr. lAba documented as of this encounter (statuses as of 03/29/2023) [facility]* Problem Noted Date Diagnosed Date Resolved Date Urinary incontinence 07/08/2017 022 Overview: Seeing Dr. Alba documented as of this encounter (statuses as of 04/02/2023) [facility]* Problem Noted Date Diagnosed Date Resolved Date Urinary incontinence 07/08/2017 022 Overview: Seeing Dr. Alba documented as of this encounter (statuses as of 04/29/2023) [facility]* Problem Noted Date Diagnosed Date Resolved Date Urinary incontinence 07/08/2017 022 Overview: Seeing Dr. Alba documented as of this encounter (statuses as of 05/06/2023) [facility]* Problem Noted Date Diagnosed Date Resolved Date Urinary incontinence 07/08/2017 022 Overview: Seeing Dr. Alba documented as of this encounter (statuses as of 05/13/2023) [facility]* Problem Noted Date Diagnosed Date Resolved Date Urinary incontinence 07/08/2017 022 Overview: Seeing Dr. Alba documented as of this encounter (statuses as of 07/25/2023) [facility]* Problem Noted Date Diagnosed Date Resolved Date Urinary incontinence 07/08/2017 022 Overview: Seeing Dr. Alba documented as of this encounter (statuses as of 09/19/2023) [facility] N[facility]* Problem Noted Date Diagnosed Date Resolved Date Urinary incontinence 07/08/2017 022 Overview: Seeing Dr. lAba documented as of this encounter (statuses as of 09/28/2023) [facility]12-22-2017 History of Past illness Narrative* Problem Noted Date Diagnosed Date Resolved Date Urinary incontinence 07/08/2017 022 Overview: Seeing Dr. Alba documented as of this encounter (statuses as of 09/29/2023) [facility]12-22-2017 History of Past illness Narrative* Problem Noted Date Diagnosed Date Resolved Date Urinary incontinence 07/08/2017 022 Overview: Seeing Dr. Alba documented as of this encounter (statuses as of 09/30/2023) [address]12-2017 History of Past illness Narrative* Problem Noted Date Resolved Date Well adult exam 10/27/2016 10/15/2021 Overview: last done: 05/29/2021 documented as of this encounter (statuses as of 10/15/2021) [address]12-2017 History of Past illness Narrative* Problem Noted Date Resolved Date Well adult exam 10/27/2016 10/15/2021 Overview: last done: 05/29/2021 documented as of this encounter (statuses as of 10/15/2021) [address]12-2017 History of Past illness Narrative* Problem Noted Date Resolved Date Well adult exam 10/27/2016 10/15/2021 Overview: last done: 05/29/2021 documented as of this encounter (statuses as of 10/16/2021) [address]12-2017 History of Past illness Narrative* Problem Noted Date Resolved Date Well adult exam 10/27/2016 10/15/2021 Overview: last done: 05/29/2021 documented as of this encounter (statuses as of 10/20/2021) [address]12-2017 History of Past illness Narrative* Problem Noted Date Resolved Date Well adult exam 10/27/2016 10/15/2021 Overview: last done: 05/29/2021 documented as of this encounter (statuses as of 10/22/2021) [address]12-2017 History of Past illness Narrative* Problem Noted Date Resolved Date Well adult exam 10/27/2016 10/15/2021 Overview: last done: 05/29/2021 documented as of this encounter (statuses as of 11/19/2021) [facility] P[facility] September 12, 2022 11:17am Note Date/Time September 12, 2022 11:[address] [place] [address] Medical Records Department [address] [place] [address] Emergency Department Summary 09/12/22 MR#: [id number] Acct: [id number] Name: PERNELL RODRIGUEZ Rep #:[id number] : 1960 62 From: Ortiz Pinto MD PCP: Dr. Homer Bradford MD Status:PRE ER Location: ED HPI History of Present Illness Chief Complaint: Rash Informant: patient Narrative Narrative: Patient presenting with spontaneous onset of a splotchy red pruritic rash 2 or 3days. No obvious etiology. No changes in any of her medications recently, no changes in shampoos, soaps, or other topical agents. She states it has been coming and going on various parts of her body. She did have them on her legs and feet but right now she only has it left upper chest and breast and anterior neck. She states it feels like it haywood as well. She denies any systemic symptoms. [facility] Medical History Acute respiratory failure with hypoxia Arthritis Asthma CKD (chronic kidney disease) stage 3, GFR 30-59 ml/min COPD (chronic obstructive pulmonary disease) Diabetes Elevated liver enzymes Frequent headaches Gastrointestinal problem Heart disease History of back problems History of left heart catheterization (LHC) (~12/30/20) Hyperlipidemia IBS (irritable bowel syndrome) Lung nodule Migraines Paroxysmal atrial fibrillation Stroke Home Medications albuterol sulfate 90 mcg/actuation aerosol inhaler (Ventolin HFA) 1 puff inhalation Q6H 06/22/17 [History Last Taken 09/08/20] amantadine HCl 100 mg capsule 100 mg PO BID 06/22/17 [History Last Taken 09/08/20] fludrocortisone 0.1 mg tablet 0.1 mg PO QDAY 06/22/17 [History Last Taken 09/08/20] hyoscyamine sulfate 0.375 mg tablet,extended release,12 hr (Oscimin SR) 0.375 mgPO BID 06/22/17 [History Last Taken 09/08/20] lovastatin 20 mg tablet 20 mg PO QDAY 06/22/17 [History Last Taken 09/08/20] melatonin 10 mg capsule 10 mg PO HS PRN Sleep 06/22/17 [History Last Taken 09/08/20] metformin 500 mg tablet 500 mg PO DAILY 06/22/17 [History Last Taken 09/08/20] nitroglycerin 0.4 mg sublingual tablet 0.4 mg sublingual Q5M PRN CHEST PAIN 06/22/17 [History Last Taken 09/08/20] omeprazole 40 mg capsule,delayed release 40 mg PO QDAY 06/22/17 [History Last Taken 09/08/20] quetiapine 200 mg tablet (Seroquel) 200 mg PO BID 06/22/17 [History Last Taken 09/08/20] spironolactone 25 mg tablet 25 mg PO QDAY 06/22/17 [History Last Taken 09/08/20] mirabegron 50 mg tablet,extended release 24 hr 25 mg PO DAILY 08/19/20 [History Last Taken 09/08/20] citalopram 10 mg tablet (Celexa) 10 mg PO DAILY 08/25/21 [History Last Taken Unknown] topiramate 25 mg tablet (Topamax) 25 mg PO BID 08/25/21 [History Last Taken Unknown] apixaban 5 mg tablet (Eliquis) 5 mg PO BID #0 tabs 09/07/21 [Rx Last Taken Unknown] furosemide 20 mg tablet 20 mg PO BIDLX #0 tabs 09/07/21 [Rx Last Taken Unknown] insulin lispro 100 unit/mL subcutaneous pen (Humalog KwikPen (U-100) Insulin) See Protocol subcut ACHS #0 mL 09/07/21 [Rx Last Taken Unknown] ipratropium 0.5 mg-albuterol 3 mg (2.5 mg base)/3 mL nebulization soln 3 ml inhalation Q4HWA.RT PRN #0 mL 09/07/21 [Rx Last Taken Unknown] menthol 0.44 %-zinc oxide 20.6 % topical ointment (Calmoseptine) 1 applic topical BID #0 grams 09/07/21 [Rx Last Taken Unknown] metoprolol tartrate 25 mg tablet 25 mg PO BID #0 tabs 09/07/21 [Rx Last Taken Unknown] rizatriptan 10 mg tablet 10 mg PO DAILY PRN migraine headache #0 tabs 09/07/21 [Rx Last Taken Unknown] sodium chloride 0.65 % nasal spray aerosol (Deep Sea Nasal) 2 spray NASAL TID PRN PRN NASAL DRYNESS #0 mL 09/07/21 [Rx Last Taken Unknown] bisacodyl 10 mg rectal suppository (Dulcolax (bisacodyl)) [address] DAILY PRN 09/28/21 [History Last Taken Unknown] lorazepam 0.5 mg tablet (Ativan) 0.5 mg PO Q12H PRN Anxiety 09/28/21 [History Last Taken Unknown] budesonide-formoterol HFA 160 mcg-4.5 mcg/actuation aerosol inhaler (Symbicort) 2 puff inhalation BID #1 ea 02/25/22 [Rx Last Taken Unknown] prednisone 20 mg tablet 20 mg PO DAILY #5 TABLETS 09/12/22 [Rx Last Taken Unknown] Allergy/AdvReac Type Severity Reaction Status Date / Time Penicillins Allergy Intermediate Hives Verified 09/12/22 10:56 carbamazepine [From Tegretol] AdvReac Intermediate Nausea Verified 09/12/22 10:56 benztropine AdvReac Unknown Verified 09/12/22 10:56 diazepam [From Valium] AdvReac Other Verified 09/12/22 10:56 Sulfa (Sulfonamide AdvReac Nausea Verified 09/12/22 10:56 Antibiotics) thioridazine AdvReac Nausea Verified 09/12/22 10:56 thioridazine HCl AdvReac Other Verified 09/12/22 10:56 [From Mellaril] Family History (Reviewed 02/25/22 @ 13:59 by Taylor Julian CATEGORY DEVELOPMENT MANAGER, CATEGORY DEVELOPMENT MANAGER-C) Grandmother Cancer stomach Father Cancer lung Sister Breast cancer Surgical History (Reviewed 02/25/22 @ 13:59 by Taylor Julian CATEGORY DEVELOPMENT MANAGER, CATEGORY DEVELOPMENT MANAGER-C) H/O dilation and curettage H/O hand surgery H/O shoulder surgery History of carpal tunnel surgery History of elbow surgery History of tonsillectomy Hx of cholecystectomy Social History household members: family housing: other details: Mobile home Smoking Status: Current every day smoker tobacco type: cigarettes alcohol intake: never substance use type: does not use caffeine: Yes what type of physical activity do you participate in: walking seatbelt use: always do you feel safe at home: Yes ROS ROS ED Constitutional Constitutional ED: Denies chills or fever(s) Cardiovascular Cardiovascular: Denies chest pain, leg edema or palpitations Respiratory/Chest Respiratory/Chest: Denies dyspnea Musculoskeletal Musculoskeletal: Denies back pain or neck pain Integumentary Reports rash Neurologic Neurologic: Denies headache(s), paresthesias or weakness Allergic/Immunologic Allergic/Immunologic ED: Reports urticaria; Denies mouth swelling or tongue swelling EXAM Physical Exam Const Vital Signs: 09/12/22 10:53 09/12/22 11:07 Temperature 98.0 F Temperature Source Temporal Pulse Rate 107 H 98 Respiratory Rate 24 H Blood Pressure 123/56 H 126/60 H Blood Pressure Mean 78 82 Pulse Ox 100 99 Oxygen Delivery Method Room Air Positive well nourished, well developed and obese General Appearance ED: well developed and NAD Nutritional Appearance: obese Eyes PERRL and EOMs intact bilaterally Resp normal respiratory effort and clear to auscultation bilaterally Effort and Inspection: able to speak in complete sentences Extremity normal to inspection General Extremety ED: Negative for edema, pulses abnormal or tenderness General Extremity: Negative for edema or pulses abnormal Neuro oriented x3, CN's II-XII intact bilaterally and no sensory deficits noted Sensorium / Orientation: awake and alert Motor Exam: strength 5/5 throughout Psych mental status grossly normal Skin no wounds Skin Narrative: Coalescing urticarial left upper chest, more sparse as it progresses into the left anterior shoulder area. Blanches, raised, nontender. No petechia or bullae or other lesions. No other affected areas right now except for around the left breast. Also a patch anterior neck a little to the right, similar in appearance. MDM MDM MDM Narrative Medical decision making narrative: Etiology unknown but it appears to be urticaria and she does not have any systemic symptoms and does not appear toxic. Her vital signs are normal. She is a diabetic so instead of putting her on a full 40 mg daily I am giving her 40mg here now and then putting her on 20 mg for the next 5 days. Advised to watchher blood sugars and follow-up if she continues to have the rash or develops anysystemic symptoms such as dyspnea, throat swelling, edema which she has none of now. Discharge Plan Triage Chief Complaint: Rash ED Provider: Ortiz Pinto Dx/Rx/DC Orders Clinical Impression: Urticaria Instructions: ED Hives (Adult) Prescriptions: New prednisone 20 mg tablet 20 mg PO DAILY Qty: 5 0RF No Action amantadine HCl 100 mg capsule 100 mg PO BID fludrocortisone 0.1 mg tablet 0.1 mg PO QDAY lovastatin 20 mg tablet 20 mg PO QDAY melatonin 10 mg capsule 10 mg PO HS PRN (Reason: Sleep) metformin 500 mg tablet 500 mg PO DAILY nitroglycerin 0.4 mg tablet, sublingual 0.4 mg SUBLINGUAL Q5M PRN (Reason: CHEST PAIN) omeprazole 40 mg capsule,delayed release(DR/EC) 40 mg PO QDAY hyoscyamine sulfate [Oscimin SR] 0.375 mg tablet extended release 12 hr 0.375 mg PO BID quetiapine [Seroquel] 200 mg tablet 200 mg PO BID spironolactone 25 mg tablet 25 mg PO QDAY albuterol sulfate [Ventolin HFA] 90 mcg/actuation HFA aerosol inhaler 1 puff INHALATION Q6H lorazepam [Ativan] 0.5 mg tablet 0.5 mg PO Q12H PRN (Reason: Anxiety) bisacodyl [Dulcolax (bisacodyl)] 10 mg suppository [address] DAILY PRN budesonide-formoterol [Symbicort] 160-4.5 mcg/actuation HFA aerosol inhaler 2 puff inhalation BID Qty: 1 3RF Rx Instructions: administer with spacer, rinse mouth after each use mirabegron 50 MG tablet extended release 24 hr 25 mg PO DAILY citalopram [Celexa] 10 mg Tablet 10 mg PO DAILY topiramate [Topamax] 25 mg Tablet 25 mg PO BID sodium chloride [Deep Sea Nasal] 0.65 % Aerosol,Aurora 2 spray NASAL TID PRN PRN (Reason: NASAL DRYNESS) Qty: 0 0RF metoprolol tartrate 25 mg Tablet 25 mg PO BID Qty: 0 0RF menthol-zinc oxide [Calmoseptine] 0.44-20.6 % Ointment 1 applic topical BID Qty: 0 0RF Protocol: *Topical Application Instructions APPLICATION INSTRUCTIONS: coccyx ipratropium-albuterol 0.5 mg-3 mg(2.5 mg base)/3 mL Solution For Nebulization 3 ml inhalation Q4HWA.RT PRNQty: 0 0RF furosemide 20 mg Tablet 20 mg PO BIDLX Qty: 0 0RF insulin lispro [Humalog KwikPen Insulin] 100 unit/mL Insulin Pen See Protocol subcut ACHS Qty: 0 0RF Protocol: 3. Sliding Scale Insulin Med Dosing Condition: 150-189 mg/dl = 1 unit Condition: 190-229 mg/dl = 2 units Condition: 230-269 mg/dl = 3 units Condition: 270-309 mg/dl = 4 units Condition: 310-349 mg/dl = 5 units Condition: 350-399 mg/dl = 6 units Condition: 400-449 mg/dl = 7 units Condition: Greater than 449 call physician Protocol Text: - Use for Total Daily Dose of Insulin 37-55 units - Obsese, infected, or steroid patients MEDIUM DOSING ALGORITHIM Eliquis 5 mg Tablet 5 mg PO BID Qty: 0 0RF rizatriptan 10 mg Tablet 10 mg PO DAILY PRN (Reason: migraine headache) Qty: 0 0RF Primary Care Provider: Homer Bradford Referrals: Homer Bradford MD [Primary Care Provider] - 3-5 Days if not improving Activity Restrictions/Additional Instructions: Prednisone may make your blood sugars go up since you are a diabetic. Make sureyou check your blood sugars at least once daily, if they go over 400, come to the ER. You already received a dose of prednisone for today, so start the prescription tomorrow 09/13. Disposition Disposition: Home, Self Care What to do if you have Problems For any increased pain, shortness of breath, bleeding, nausea or vomiting, chestpain, or any unexpected problems, contact your Primary Care Provider. Call [facility] ([phone]) or report to the closest Emergency Room. Call 911 if necessary. 09/12/22 1117 <Electronically signed by Ortiz Pinto MD> Cosigner Signature (if applicable): CC: Dr. Homer Bradford MD ~ Signed [facility] Work Phone: Discharge summary Author Jennifer Alba [facility] November 24, 2023 11:45am Note Date/Time November 24, 2023 11:42a m [facility] Medical Records Department [address] [place] [address] Instructions for Home/Discharge Instructions 11/24/23 1141 MR#: [id number] Acct: [id number] Name: PERNELL RODRIGUEZ Rep #:[id number] : 1960 63 From: Jennifer Arthur PCP: Dr. Homer Bradford MD Status:REG [facility] Discharge Instructions Diet Discharge Diet: No restrictions Activity Discharge Activity: Return to Normal Activity and May Shower (on Tuesday) May resume sexual activity in: 1 week Dressing / Incision Call your doctor if your incision/area has: Continuous Slow Oozing, Sudden Increased Bleeding, Increased Pain/ Swelling, Increased Redness, Foul Smelling Discharge and Swelling at the incision site Call your doctor if you observe: Fever of 101 or Higher, Inability to urinate and Inability to have a bowel movement Follow Up Care Please Follow Up With: Jennifer Alba MD When: 3-4 weeks in the office. Test Results: Test results from this visit will be discussed in further detail at your follow- up appointment, if applicable. Discharge Plan Admission Attending Provider: Jennifer Alba Primary Care Provider: Homer Bradford Discharge Orders/Prescriptions Prescriptions: New oxycodone-acetaminophen [Percocet] 5-325 mg tablet 1 tab PO Q8H PRN (Reason: pain) 3 Days Qty: 10 0RF cephalexin [cephalexin] 500 mg capsule 500 mg PO Q12 3 Days Qty: 6 0RF Continued lovastatin 20 mg tablet 20 mg PO QDAY melatonin 10 mg capsule 10 mg PO HS PRN (Reason: Sleep) nitroglycerin 0.4 mg tablet, sublingual 0.4 mg SUBLINGUAL Q5M PRN (Reason: CHEST PAIN) hyoscyamine sulfate [Oscimin SR] 0.375 mg tablet extended release 12 hr 0.375 mg PO BID spironolactone 25 mg tablet 25 mg PO QDAY lorazepam [Ativan] 0.5 mg tablet 0.5 mg PO Q12H PRN (Reason: Anxiety) vitamin B complex [B Complex-Vitamin B12] Tablet 1 tab PO BID omega-3 fatty acids-fish oil [Fish Oil] 360-1,200 mg capsule 1 cap PO BID ipratropium-albuterol 0.5 mg-3 mg(2.5 mg base)/3 mL Solution For Nebulization 3 ml inhalation Q4HWA.RT PRN (Reason: shortness of breath or wheezing) Qty: 00RF rizatriptan 10 mg Tablet 10 mg PO DAILY PRN (Reason: migraine headache) Qty: 0 0RF Eliquis 5 mg tablet 5 mg PO BID Patient Comments: STOP 2 DAYS PRIOR TO OR citalopram [Celexa] 10 mg tablet 10 mg PO DAILY furosemide 20 mg tablet 20 mg PO BID omeprazole 40 mg capsule,delayed release(DR/EC) 40 mg PO DAILY trazodone 100 mg tablet 200 mg PO QHS albuterol sulfate [Ventolin HFA] 90 mcg/actuation HFA aerosol inhaler 1 puff INHALATION Q6H Qty: 8.5 12RF Referrals / Follow Up: Homer Bradford MD [Primary Care Provider] - Disposition Disposition (needs filled in before D/C Order can be placed): Home, Self Care 11/24/23 1145<Electronically signed by Jennifer Alba MD>Jennifer Alba MD CC: Dr. Homer Bradford MD ~ Signed [facility] Work Phone: Discharge summary Author Peter Herbert [facility] Note Date/Time January 11, 2025 12:0 7pm [facility] Medical Records Department [address] [place] [id number] Discharge Summary 01/11/25 1205 MR#: [id number] Acct: [id number] Name: PERNELL RODRIGUEZ Rep #:[id number] : 1960 64 From: Peter Arthur PCP: Dr. Homer Bradford MD Status:ADM [facility] Prov[facility] Date of Admission: 01/08/25 Date of Discharge: 01/11/25 Primary Care Physician: Dr. Homer Bradford MD Consultations 01/08/25 20:32 Consult: Legal Officer / Pulmonary Medicine Routine Consulting Provider: Intensivists/Pulmonary Med Reason for Consult: Sepsis, Encephalopathy, UTI EMERGENT Consult: No MD Notified: Yes Date Notified: 01/09/25 Time Notified: 08:00 Method of Notification: Verbal 01/10/25 08:29 Consult: Onc/Wound/heat treating operator Routine Comment: Reason for Consult:: Left lg worund, swelling/venous HTN Reason For Visit: SEPSIS UTI Diagnosis Discharge Diagnosis (1) Sepsis: Status: Acute Code(s): A41.9 - Sepsis, unspecified organism Plan Patient is a 64-year-old female who presented to [facility] ED on 01/08/2025 with altered mentation. 1. Sepsis suspected secondary to UTI ? Legal Officer following. Met sepsis criteria on admit with tachycardia, tachypnea, hypotension, lactic acidosis, encephalopathy and renal insufficiency with suspected urinary source. Hypotension was fluid responsive, did not require pressors on admit. UA with 100 leukocyte esterase, negative nitrates, 25-50 WBCs, 2+ bacteria. Renal ultrasound with small nonobstructing stones, otherwise normal. Chest x-ray unremarkable. Urine culture and blood cultures pending. Notably urine culture in October grew Klebsiella sensitive to everythingbut ampicillin. Continue treatment with IV Levaquin. Continue to monitor closely. 01/10: Blood and urine cultures are pending. Previous urine culture on 11/12 was negative. 01/11 her cultures are negative. Sepsis resolved. Since her infectious workup was negative, total of 5 days of antibiotic duration. 1 more tablet of Levaquin prescribed. Hold Seroquel and trazodone while taking Levaquin. Follow-up in pulmonary clinic. 2. Acute metabolic encephalopathy, improving ? Suspected secondary to sepsis as above. CT brain negative on admit. Much improved on hospital day 2, fatigued but alert and oriented x 3. Continue treatment as above. Avoid sedating medications as able. 01/10: Metabolic encephalopathy resolved. 3. STEVEN on CKD stage IIIb, resolved ? Creatinine 1.8 on admit, baseline around 1.3. Resolved back to baseline on hospital day 2 after IV fluid resuscitation. 01/10: BUN/creatinine 12/1.25. AG 12. Bicarb 20. Creatinine back on the baseline. STEVEN resolved 4. Acute on chronic debility, poor social situation with homelessness ? PT/OT/case management consulted. Patient has reportedly been staying with a friend in [place] recently and has been applying for housing. Appreciate therapy and case management assistance. 5. COPD/asthma with acute hypoxia ? Patient requiring 2 L nasal cannula on admit to maintain appropriate oxygen saturations. Chest x-ray on admit unremarkable. Suspect patient may be close to her baseline. Continue home inhalers and wean supplemental oxygen as able. 01/11: Prescription given for DuoNeb nebulization and Mucinex DM. Continue incentive spirometry and PEP for 1 week Chronic medical conditions: ? Class III obesity: BMI 45 on admit. Complicates hospital course, care and prognosis. ? Paroxysmal A-fib, hypertension, hyperlipidemia: Continue home Eliquis, aspirinand statin. Holding home Lasix for now given sepsis as above. ? Type 2 diabetes mellitus: A1c 6.0% on admit. Not on home indication. Will treat with sliding scale insulin with meals while inpatient, adjust as needed. ? Tobacco abuse: NRT available per patient request. Discussed cessation on discharge. ? Anxiety/depression/bipolar disorder: Continue home citalopram, Seroquel, Ativan twice daily as needed and trazodone at night as needed. ? GERD: Continue home PPI. DVT prophylaxis: Not indicated, on Eliquis CODE STATUS: Full code, verified Discharge medication reconciliation done. Discharge follow-up instructions completed. Discharge process discussed with the patient and all questions wereanswered to patient's satisfaction. Follow with PCP in 1 to 2 weeks Total time spent, exact 35 minutes on discharge meds reconciliation, examination, coordination of care with nurses and ancillary staff, review of imaging and blood test and discussion with the patient on follow-up instructions. Laboratory Results 01/09/25 08:25: POC Glucose 110 H 01/09/25 12:13: POC Glucose 115 H 01/09/25 16:22: POC Glucose 96 01/09/25 20:59: POC Glucose 96 01/10/25 05:30: WBC 9.3, RBC 3.98 L, Hgb 12.3, Hct 37.8, MCV 95.0, MCH 30.9, MCHC 32.5, RDW Std Deviation 48.2 H, RDW Coeff of Robert 13.7, Plt Count 216, MPV 10.4, Sodium 144, Potassium 3.5, Chloride 112 H, Carbon Dioxide 19.9 L, Anion Gap 12, BUN 12, Creatinine 1.25 H, Estim Creat Clear Calc 55.62, Est GFR (MDRD) Non-Af 49 L, BUN/Creatinine Ratio 9.7 L, Glucose 92, Calcium 8.9 01/10/25 06:49: POC Glucose 90 Medications at Discharge Home Medications albuterol sulfate 90 mcg/actuation aerosol inhaler 2 puff inhalation Q6H PRN shortness of breath or wheezing #6.7 grams 11/07/24 apixaban 5 mg tablet (Eliquis) 5 mg PO Q12 #60 tabs 11/07/24 citalopram 10 mg tablet 10 mg PO DAILY #30 tabs 11/07/24 quetiapine 100 mg tablet 200 mg (2 x 100 mg) PO BID #120 tabs 11/07/24 Held on 01/11/25. Instructions: Hold while taking Levaquin only for tomorrow trazodone 100 mg tablet 200 mg (2 x 100 mg) PO QHS #60 tabs 11/07/24 Held on 01/11/25. Instructions: Hold while taking Levaquin tomorrow. lorazepam 0.5 mg tablet 0.5 mg PO Q12H PRN anxiety 11/14/24 lovastatin 40 mg tablet 20 mg PO QHS 11/14/24 omeprazole 40 mg capsule,delayed release 40 mg PO DAILY 11/14/24 aspirin 81 mg capsule 81 mg PO DAILY 01/08/25 furosemide 20 mg tablet 20 mg PO BID 01/08/25 dextromethorphan-guaifenesin ER 60 mg-1,200 mg tab,extend release,12hr (Mucinex DM) 1 tab PO Q12H 7 days #14 tabs 01/11/25 ipratropium 0.5 mg-albuterol 3 mg (2.5 mg base)/3 mL nebulization soln 3 ml inhalation Q20M PRN shortness of breath 1 month #90 mL 01/11/25 levofloxacin 500 mg tablet 500 mg PO DAILY 1 day #1 TAB 01/11/25 midodrine 10 mg tablet 10 mg PO TIDCM 30 days #90 tabs 01/11/25 Physical Exam Narrative Seen and examined. Confusion has resolved Cultures are negative. UTI ruled out. This time she denies new burning micturition or acute LUTS. States she has mild abrasion of the bellybutton due to diaper Physical exam General: Alert, Oriented x3, Cooperative. BMI 45.5 kg/m? HEENT: Atraumatic, PERRLA, EOMI, Normocephalic. Oral: No Gingival or Mucosal Lesions/ Ulcerations Neck: Supple, No JVD, Negative Carotid Bruits Chest wall/Lungs: Air entry diminished in bilateral lung bases. No crepitation/rhonchi Cardiovascular: Regular rate and rhythm, Normal S1,S2, No M/G/R Abdomen: Bowel Sounds Present, Soft, Non Tender, Non-Distended : Good urine output. No renal angle tenderness. No suprapubic tenderness. Extremities: No edema, Capillary Refill Less than 3 Seconds Skin: Small superficial left leg wound. Left leg more swollen than right, chronic as per Musculoskeletal: No Tenderness to Palpation of Joints or Extremities. ROM mild restriction at his Neurological: Cranial nerves II-XII grossly intact, DTR 2+/4. No acute focal neurological deficit. Psych/Mental Status: Flat affect Weight / BMI Weight Weight: 253 lb 12.033 oz Body Mass Index (BMI) 46.7 ABG / Lab / Microbiology Data 01/10/25 05:30 01/10/25 05:30 Laboratory: Laboratory Results - last 24 hr 01/10/25 11:43: POC Glucose 108 H 01/10/25 16:32: POC Glucose 96 01/10/25 20:59: POC Glucose 107 H 01/11/25 06:11: POC Glucose 88 01/11/25 11:17: POC Glucose 121 H Microbiology: Microbiology 01/08/25 19:00 Blood Culture (Wb) - Right Wrist Blood Culture - Preliminary No growth in 48 hours. 01/08/25 19:00 Blood Culture (Wb) - Anticubital Left Blood Culture - Preliminary No growth in 48 hours. 01/08/25 21:20 Urine Catheter - Sorto Urine Culture - Final Culture exhibits no growth. Radiography Diagnostic Testing: Radiology Impression Venous Doppler Study 01/10/25 08:29 Interpretation Summary Deep veins of the bilateral lower extremities are patent and compressible segmentally. There is no evidence of bilateral lower extremity deep vein thrombosis. The bilateral great saphenous veins appearpatent and compressible segmentally. Ordering Physician: Peter Herbert Referring Physician: Homer Bradford Performed By: Sintia Tavarez, RDCS, RVT D/C Instructions DC O2, CPAP, BIPAP Needs Home O2 Discharge instructions: No Meaningful Use Info Meaningful Use Meaningful Use Diagnoses (Choose all that apply): None applicable Ischemic Stroke Statin Dosing Therapy Reference: STATIN DOSE THERAPY REFERENCE: * Patients > 75 years receive moderate or high dose statin therapy. * Patients 75 years or YOUNGER should receive HIGH intensity statin dose unless contraindicated. You will be required to document reason for non-treatment if statin daily dose does not meet guidelines. HIGH DOSE STATIN THERAPY DAILY Atorvastatin > than or = to 40 mg Rosuvastatin > than or = to 20 mg Amlodipine + Atorvastatin > than or = to 2.5/40 mg Ezetimibe + Simvastatin 10/80 mg Simvastatin 80mg Discharge Plan Admission Admit Date/Time: 01/08/25 19:23 Attending Provider: Peter Herbert Primary Care Provider: Homer Bradford Consulting Providers: Lauren Vela; Luis Antonio Navarro Discharge Orders/Prescriptions Prescriptions: New midodrine 10 mg tablet 10 mg PO TIDCM 30 Days Qty: 90 0RF levofloxacin 500 mg tablet 500 mg PO DAILY 1 Days Qty: 1 0RF dextromethorphan-guaifenesin [Mucinex DM] 60-1,200 mg tablet extended release 12 hr 1 tab PO Q12H 7 Days Qty: 14 0RF Continued albuterol sulfate 90 mcg/actuation HFA aerosol inhaler 2 puff inhalation Q6H PRN (Reason: shortness of breath or wheezing) Qty: 6.7 0RF citalopram 10 mg Tablet 10 mg PO DAILY Qty: 30 0RF Eliquis 5 mg Tablet 5 mg PO Q12 Qty: 60 0RF lovastatin 40 mg tablet 20 mg PO QHS omeprazole 40 mg capsule,delayed release(DR/EC) 40 mg PO DAILY lorazepam 0.5 mg tablet 0.5 mg PO Q12H PRN (Reason: anxiety) aspirin 81 mg capsule 81 mg PO DAILY furosemide 20 mg tablet 20 mg PO BID ipratropium-albuterol 0.5 mg-3 mg(2.5 mg base)/3 mL solution for nebulization 3 ml inhalation Q20M PRN (Reason: shortness of breath) 30 Days Qty: 90 0RF Rx Instructions: for 3 doses Held quetiapine 100 mg Tablet 200 mg PO BID Qty: 120 0RF Hold Instructions: Hold while taking Levaquin only for tomorrow trazodone 100 mg Tablet 200 mg PO QHS Qty: 60 0RF Hold Instructions: Hold while taking Levaquin tomorrow. Referrals / Follow Up: Dallin Christopher DO [Med Staff - Active Staff] - Within 2 Weeks Homer Bradford MD [Primary Care Provider] - 01/17/25 11:40 am Jovana Chino MD [Non-Staff] - 02/26/25 12:00 pm (Provide A Ride([phone]) will pick you up at 11-11:30, and will pick you up from [facility] at1pm after the appt.) Disposition Disposition (needs filled in before D/C Order can be placed): Home, Self Care Charges/Coding Visit Charges Inpatient E&M: 58215 Disch Hosp >30min 01/11/25 1207 <Electronically signed by Peter Herbert MD> Cosigner Signature (if applicable): CC: Dr. Homer Bradford MD; Dr. Peter Herbert MD~ Signed [facility] Work Phone: Evaluation + Plan note Future Appointments Appointment Date:06/21/2022 03:00:00 PM Scheduled Provider:RAJANI GOINS Location:[facility] Appointment Type:[facility] Evaluation note* Diagnosis History of recent pneumonia- Primary History of respiratory failure Personal history of other diseases of respiratory system Physical deconditioning Debility, unspecified Muscle weakness (generalized) Dysphagia, unspecified type Type 2 diabetes mellitus without complication, with long-term current use of insulin (HCC) Gastroesophageal reflux disease without esophagitis Esophageal reflux Chronic obstructive pulmonary disease, unspecified COPD type (HCC) Irritable bowel syndrome with both constipation and diarrhea [facility] Diagnosis Type 2 diabetes mellitus without complication, with long-term current use of insulin (HCC)- Primary Diabetic eye exam (HCC) Type II or unspecified type diabetes mellitus without mention of complication, not stated as uncontrolled Mixed hyperlipidemia Gastroesophageal reflux disease without esophagitis Esophageal reflux Stage 3b chronic kidney disease (HCC) Bilateral leg edema Edema Bipolar affective disorder, remission status unspecified (HCC) Major depressive disorder, recurrent episode, moderate (HCC) Major depressive disorder, recurrent episode, moderate Paroxysmal atrial fibrillation (HCC) Atrial fibrillation ASHD (arteriosclerotic heart disease) Coronary atherosclerosis of unspecified type of vessel, mentasta or graft Chronic obstructive pulmonary disease, unspecified COPD type (HCC) Migraine without aura and without status migrainosus, not intractable Migraine without aura, without mention of intractable migraine without mention of status migrainosus Hypotension, unspecified hypotension type History of CVA (cerebrovascular accident) Transient ischemic attack (TIA), and cerebral infarction without residual deficits Chronic insomnia Insomnia, unspecified Tardive dyskinesia Subacute dyskinesia due to drugs Morbid obesity due to excess calories (HCC) Smoker Tobacco use disorder Extrapyramidal reaction Unspecified extrapyramidal disease and abnormal movement disorder Mixed incontinence urge and stress (male)(female) [facility] Diagnosis Paroxysmal atrial fibrillation (HCC) Atrial fibrillation [facility] Diagnosis Stage 3b chronic kidney disease (HCC)- Primary [facility] Diagnosis Stage 3b chronic kidney disease (HCC)- Primary Hypokalemia Hypopotassemia [facility] Diagnosis Onset Date Resolution Status Acute on chronic renal insufficiency chronic Acidosis, lactic resolved Acute hypotension resolved Bilateral interstitial pneumonia resolved Dehydration, moderate resolv ed Hypokalemia resolved Sepsis resolved Septic shock resolved Bipolar disorder chronic COPD (chronic obstructive pulmonary disease) [facility] Work Phone: Evaluation note* Diagnosis Hypokalemia- Primary Hypopotassemia [facility] this [facility]* Diagnosis Hypokalemia- Primary Hypopotassemia [facility] Diagnosis Oropharyngeal dysphagia- Primary Dysphagia, oropharyngeal phase [facility]* Diagnosis Onychomycosis- Primary Dermatophytosis of nail Pain in toe of left foot Pain in limb Pain in toe of right foot Pain in limb Diminished pulses in lower extremity Other symptoms involving cardiovascular system Other diabetic neurological complication associated with type 2 diabetes mellitus (HCC) [facility]* Diagnosis Onset Date Resolution Status Nicotine dependence, cigarettes, uncomplicated acute COPD (chronic obstructive pulmonary disease) chronic Obesity, morbid, BMI 40.0-49.9 [facility] Work Phone: Evaluation note* Diagnosis Onset Date Resolution Status Nicotine dependence, cigarettes, uncomplicated acute COPD (chronic obstructive pulmonary disease) chronic Obesity, morbid, BMI 40.0-49.9 chronic Smoking greater than 40 pack years acute Asthma-COPD overlap syndrome chronic Bipolar disorder [facility] Work Phone: Evaluation note* Diagnosis Well adult exam- Primary Routine general medical examination at a [facility] care facility Type 2 diabetes mellitus without complication, with long-term current use of insulin ([facility]) Diabetic eye exam ([facility]) Type II or unspecified type diabetes mellitus without mention of complication, not stated as uncontrolled Diabetic foot ([facility]) Type II or unspecified type diabetes mellitus with other specified manifestations, not stated as uncontrolled Mixed hyperlipidemia Gastroesophageal reflux disease without esophagitis Esophageal reflux Hypotension, unspecified hypotension type Migraine without aura and without status migrainosus, not intractable Migraine without aura, without mention of intractable migraine without mention of status migrainosus Tardive dyskinesia Subacute dyskinesia due to drugs Chronic insomnia Insomnia, unspecified Chronic obstructive pulmonary disease, unspecified COPD type ([facility]) ASHD (arteriosclerotic heart disease) Coronary atherosclerosis of unspecified type of vessel, mentasta or graft Paroxysmal atrial fibrillation (HCC) Atrial fibrillation Bilateral leg edema Edema Stage 3b chronic kidney disease ([facility]) History of CVA (cerebrovascular accident) Transient ischemic attack (TIA), and cerebral infarction without residual deficits Mixed incontinence urge and stress (male)(female) Incontinence of feces, unspecified fecal incontinence type Smoker Tobacco use disorder Bipolar affective disorder, remission status unspecified (HCC) Major depressive disorder, recurrent episode, moderate (HCC) Major depressive disorder, recurrent episode, moderate [place] or callus Corns and callosities Colon cancer screening Special screening for malignant neoplasms, colon Medication management Encounter for long-term (current) use of other medications Leg cramps Cramp of limb [facility] Diagnosis Leg cramps- Primary Cramp of limb [facility]* Diagnosis Encounter for screening mammogram for breast cancer [facility]* Diagnosis Other diabetic neurological complication associated with type 2 diabetes mellitus (HCC)- Primary Onychomycosis Dermatophytosis of nail Pain in toe of left foot Pain in limb Pain in toe of right foot Pain in limb Hyperkeratosis Acquired keratoderma [facility] Diagnosis Low vitamin B12 level Other B-complex deficiencies [facility] noteNo assessment information [facility]WTr[facility] Work Phone: Evaluation note* Diagnosis Rash- Primary Rash and other nonspecific skin eruption [facility]* Diagnosis Migraine without aura and without status migrainosus, not intractable Migraine without aura, without mention of intractable migraine without mention of status migrainosus [facility]* Diagnosis Rash- Primary Rash and other nonspecific skin eruption Hives Urticaria, unspecified [facility]* Diagnosis Leg cramps- Primary Cramp of limb [facility]* Diagnosis Hordeolum externum of right lower eyelid- Primary Hordeolum externum Meibomian gland dysfunction (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 eyes Type 2 diabetes mellitus without retinopathy (HCC) Type II or unspecified type diabetes mellitus without mention of complication, not stated as uncontrolled Nuclear sclerosis of both eyes Presbyopia [facility]* Diagnosis Other diabetic neurological complication associated with type 2 diabetes mellitus (HCC)- Primary Onychomycosis Dermatophytosis of nail Pain in toe of left foot Pain in limb Pain in toe of right foot Pain in limb Hyperkeratosis Acquired keratoderma Diminished pulses in lower extremity Other symptoms involving cardiovascular system [facility]* Diagnosis Mixed hyperlipidemia- Primary Type 2 diabetes mellitus without complication, with long-term current use of insulin (HCC) Chronic obstructive pulmonary disease, unspecified COPD type (HCC) Morbid obesity due to excess calories (HCC) Stage 3b chronic kidney disease (HCC) Screening for colon cancer Special screening for malignant neoplasms, colon [facility]* Diagnosis Onset Date Resolution Status Lung nodule acute Dyspnea [facility] Work Phone: Evaluation note* Diagnosis Screening for colon cancer Special screening for malignant neoplasms, colon [facility]* Diagnosis Encounter for screening mammogram for breast cancer documented [facility] this [facility]* Diagnosis Chronic pain of both shoulders- Primary Pain in joint, shoulder region Type 2 diabetes mellitus without complication, without long-term current use of insulin (HCC) Major depressive disorder, recurrent episode, moderate (HCC) Major depressive disorder, recurrent episode, moderate Gastroesophageal reflux disease without esophagitis Esophageal reflux Mixed hyperlipidemia documented in this encounter [facility]* Diagnosis Rotator cuff disorder, left- Primary Obesity, Class III, BMI >= 40 Morbid obesity documented in this encounter [facility]* Diagnosis Chronic pain of both shoulders Pain in joint, shoulder region documented [facility] this [facility]* Diagnosis Type 2 diabetes mellitus with stage 3b chronic kidney disease, without long-term current use of insulin ([facility])- Primary Diabetic eye exam ([facility]) Type II or unspecified type diabetes mellitus without mention of complication, not stated as uncontrolled Mixed hyperlipidemia Hypotension, unspecified hypotension type ASHD (arteriosclerotic heart disease) Coronary atherosclerosis of unspecified type of vessel, mentasta or graft Paroxysmal atrial fibrillation ([facility]) Atrial fibrillation Bilateral leg edema Edema Gastroesophageal reflux disease without esophagitis Esophageal reflux History of CVA (cerebrovascular accident) Transient ischemic attack (TIA), and cerebral infarction without residual deficits Chronic obstructive pulmonary disease, unspecified COPD type (HCC) Stage 3b chronic kidney disease (HCC) Migraine without aura and without status migrainosus, not intractable Migraine without aura, without mention of intractable migraine without mention of status migrainosus Bipolar affective disorder, remission status unspecified (HCC) Major depressive disorder, recurrent episode, moderate (HCC) Major depressive disorder, recurrent episode, moderate Extrapyramidal reaction Unspecified extrapyramidal disease and abnormal movement disorder Tardive dyskinesia Subacute dyskinesia due to drugs Chronic insomnia Insomnia, unspecified Smoker Tobacco use disorder Low vitamin B12 level Other B-complex deficiencies Mixed incontinence urge and stress (male)(female) Diabetic foot ([facility]) Type II or unspecified type diabetes mellitus with other specified manifestations, not stated as uncontrolled Obesity, Class III, BMI >= 40 Morbid obesity Encounter for screening mammogram for breast cancer documented in this encounter [facility] note* Diagnosis Rotator cuff disorder, left documented in this encounter [facility] note* Diagnosis Encounter for screening mammogram for breast cancer documented in this encounter [facility] note* Diagnosis Mixed incontinence urge and stress (male)(female) Incontinence of feces, unspecified fecal incontinence type [facility]* Diagnosis Mixed incontinence urge and stress (male)(female)- Primary [facility]* Diagnosis Well adult exam- Primary Routine general medical examination at a health care facility Stage 3b chronic kidney disease (HCC) Type 2 diabetes mellitus with stage 3b chronic kidney disease, without long-term current use of insulin ([facility]) Gastroesophageal reflux disease without esophagitis Esophageal reflux Chronic obstructive pulmonary disease, unspecified COPD type ([facility]) Paroxysmal atrial fibrillation (HCC) Atrial fibrillation Mixed hyperlipidemia Low vitamin B12 level Other B-complex deficiencies Obesity, Class III, BMI >= 40 Morbid obesity Medication management Encounter for long-term (current) use of other medications Subacute cough Cough [facility]* Diagnosis Left hip pain Pain in joint, pelvic region and thigh [facility]* Diagnosis Mixed incontinence urge and stress (male)(female)- Primary Muscle weakness (generalized) Incontinence of feces, unspecified fecal incontinence type [facility] this [facility]* Diagnosis Type 2 diabetes mellitus with stage 3b chronic kidney disease, without long-term current use of insulin ([facility])- Primary Diabetic eye exam ([facility]) Type II or unspecified type diabetes mellitus without mention of complication, not stated as uncontrolled Mixed hyperlipidemia History of CVA (cerebrovascular accident) Transient ischemic attack (TIA), and cerebral infarction without residual deficits Chronic obstructive pulmonary disease, unspecified COPD type ([facility]) Nodule of left lung Solitary pulmonary nodule Chronic insomnia Insomnia, unspecified Migraine without aura and without status migrainosus, not intractable Migraine without aura, without mention of intractable migraine without mention of status migrainosus Tardive dyskinesia Subacute dyskinesia due to drugs Hypotension, unspecified hypotension type Gastroesophageal reflux disease without esophagitis Esophageal reflux ASHD (arteriosclerotic heart disease) Coronary atherosclerosis of unspecified type of vessel, mentasta or graft Paroxysmal atrial fibrillation (HCC) Atrial fibrillation Stage 3b chronic kidney disease ([facility]) Bilateral leg edema Edema Bipolar affective disorder, remission status unspecified ([facility]) Major depressive disorder, recurrent episode, moderate (HCC) Major depressive disorder, recurrent episode, moderate Low vitamin B12 level Other B-complex deficiencies Obesity, Class III, BMI >= 40 Morbid obesity Smoker Tobacco use disorder Mixed incontinence urge and stress (male)(female) Medication management Encounter for long-term (current) use of other medications [facility] Diagnosis Sepsis, due to unspecified organism, unspecified whether acute organ dysfunction present (HCC)- Primary ASHD (arteriosclerotic heart disease) Coronary atherosclerosis of unspecified type of vessel, mentasta or graft Chronic obstructive pulmonary disease, unspecified COPD type (HCC) Wound of left lower extremity, subsequent encounter Type 2 diabetes mellitus with stage 3b chronic kidney disease, without long-term current use of insulin (HCC) Paroxysmal atrial fibrillation (HCC) Atrial fibrillation Mixed hyperlipidemia Stage 3b chronic kidney disease (HCC) [facility] Urinary frequency- Primary Dysuria Pressure injury of sacral region, stage 2 (HCC) [facility] Diagnosis Left shoulder pain, unspecified chronicity- Primary [facility]* Diagnosis Type 2 diabetes mellitus without retinopathy (HCC)- Primary Type II or unspecified type diabetes mellitus without mention of complication, not stated as uncontrolled Nuclear sclerosis of both eyes Regular astigmatism of both eyes Regular astigmatism Presbyopia Meibomian gland dysfunction (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 eyes [facility] Author Lauren Vela [facility] Note Date/Time November 04, 2024 3:0 0pm [facility] Medical Records Department [address] [place] [address] H&P Exam - Hospitalist 11/04/24 1429 MR#: [id number] Acct: [id number] Name: PERNELL RODRIGUEZ Rep #:[id number] 3 : 1960 64 From: Lauren Vela MD PCP: Dr. Homer Bradford MD Status:REG ER Location: ED HPI - General General Date of Service: 11/04/24 Chief Complaint: Debility, weakness, adult FTT HPI Narrative The patient is a 64 y/o F w/ PMHx: Diabetes mellitus type II, COPD/Asthma, CKD stage III unclear subtype per GFR trending, PAF, HTN, HLD, Anxiety and Depression/bipolar disorder, Tobacco use, Morbid obesity, GERD who presents to the [facility] ED on 11/04/2024 with history of myriad of complaints noting that she is currently living with a friend who are moving out of the house that they have been staying at and she does not have a place to stay unable to care for herself noting significant weakness and debility over the last several weeks with difficulty walking because of her weakness with inability to even bathe with or maintain appropriate hygiene prompting eventual transition to the ED to assure evaluation and care. She does report increased urinary frequency, mild suprapubic discomfort and dysuria. She notes she has been incontinent but a big part of this she notes that she cannot really function to get to the restroom. Workup in the ED included T97.9, heart rate 96, BP 89/57, respiratory rate 20, 95% room air, CBC with WC 9.9, hemoglobin 14.4, platelets 261 without shift, BMP with BUN/creatinine 13/1.48, GFR 40, glucose 117, urinalysis with cloudy appearing urine, specific gravity mildly elevated 1.020, protein 15, occult blood 50, positive nitrate, leukocyte [id number] with urine WBCs 25-50 with 3+ urine bacteria, urine culture pending per ED, blood culture pending per ED. From review of cultures very remotely in 2018 patient had an E. coli greater than 100,000 culture which was pansensitive and in 2014 had a Klebsiella pneumonia greater than 100,000 that was resistant only to ampicillin otherwise pansensitive. In the ED patient administered 1 L normalsaline as well as Levaquin 750 mg IV x 1. PFSH Medical History History of echocardiogram Wears glasses Anxiety Depression Post-menopausal History of renal disease High cholesterol Back pain TIA (transient ischemic attack) Gastric reflux Smoker Shortness of breath on exertion History of pain when walking History of edema Cardiology follow-up encounter History of heart attack Chest pain History of left heart catheterization (LHC) (~12/30/20) CKD (chronic kidney disease) stage 3, GFR 30-59 ml/min Lung nodule COPD (chronic obstructive pulmonary disease) Paroxysmal atrial fibrillation Elevated liver enzymes Acute respiratory failure with hypoxia Stroke IBS (irritable bowel syndrome) Hyperlipidemia Heart disease Migraines Frequent headaches Gastrointestinal problem Diabetes History of back problems Asthma Arthritis Home Medications ?Medication ?Instructions ?Recorded ?Last Taken ?Type lovastatin 20 mg tablet 20 mg PO QDAY cholesterol 09/11/24 History ipratropium 0.5 mg-albuterol 3 mg 3 ml inhalation Q4HW A.RT PRN 09/07/21 09/08/24 Rx (2.5 mg base)/3 mL nebulization shortness of breath or wheezing #0 soln mL omega-3 fatty acids-fish oil 360 1 cap PO BID Joints 0 03/04/23 09/11/24 History mg-1,200 mg capsule (Fish Oil) omeprazole 40 mg capsule,delayed 40 mg PO DAILY Gerd 0 11/18/23 09/11/24 History release albuterol sulfate 90 mcg/actuation 1 puff inhalation Q 6H 30 days #8.5 09/21/24 Unknown Rx aerosol inhaler (Ventolin HFA) grams apixaban 5 mg tablet (Eliquis) 5 mg PO Q12H anticoagul ant 30 days 09/21/24 09/12/24 Rx #60 tabs aspirin 81 mg chewable tablet 81 mg PO BREAKFAST 30 da ys #30 tabs 09/21/24 Unknown Rx citalopram 10 mg tablet (Celexa) 10 mg PO DAILY depres lukas 30 days 09/21/24 09/11/24 Rx #30 tabs furosemide 20 mg tablet 20 mg PO BID Diuretic 30 day s #60 09/21/24 09/11/24 Rx tabs lorazepam 0.5 mg tablet (Ativan) 0.5 mg PO Q12H PRN An xiety 30 days 09/21/24 09/11/24 Rx #60 tabs quetiapine 200 mg tablet,extended 200 mg PO BID Bipola r 30 days #30 09/21/24 09/11/24 Rx release 24 hr tabs trazodone 100 mg tablet 200 mg (2 x 100 mg) PO QHS S leep 09/21/24 09/11/24 Rx 30 days #30 tabs Allergy/AdvReac Type Severity Reaction Status Date / Time Penicillins Allergy Intermediate Hives Verified 09/12/24 10:32 carbamazepine (From Tegretol) AdvReac Intermediate Nausea Verified 09/12/24 10:32 benztropine AdvReac Unknown Verified 09/12/24 10:32 diazepam (From Valium) AdvReac Other Verified 09/12/24 10:32 Sulfa (Sulfonamide AdvReac Nausea Verified 09/12/24 10:32 Antibiotics) thioridazine AdvReac Nausea Verified 09/12/24 10:32 thioridazine HCl (From AdvReac Other Verified 09/12/24 10:32 Mellaril) Family History Grandmother Cancer stomach Father Cancer lung Sister Breast cancer Surgical History Hx of surgical procedure History of carpal tunnel surgery History of elbow surgery H/O shoulder surgery H/O hand surgery H/O dilation and curettage Hx of cholecystectomy History of tonsillectomy Social History (Updated 11/04/24 @ 14:[address] Lauren Vela MD) household members: other details: Living in apt with friends, now moving out without home at discharge. housing: homeless Smoking Status: Heavy Smoker (>10/day) alcohol intake: never substance use type: does not use caffeine: Yes what type of physical activity do you participate in: walking seatbelt use: always do you feel safe at home: Yes ROS ROS Narrative Admission Review of Systems: CONSTITUTIONAL: No weight loss, fever, chills, + weakness or fatigue. HEENT: Eyes: No visual loss, blurred vision, double vision or yellow sclerae. Ears, Nose, Throat: No hearing loss, sneezing, congestion, runny nose or sore throat. SKIN: No rash or itching, lesions except significant + intertrigo, very staged ecchymoses, abrasion. CARDIOVASCULAR: No chest pain, chest pressure or chest discomfort, palpitations,edema, orthopnea, syncopal events. RESPIRATORY: + Chronic dyspnea, occasional cough, occasional wheezing. No current marked productive sputum, hemoptysis. GASTROINTESTINAL: No anorexia, nausea, vomiting or diarrhea, abdominal pain, melena, BRBPR. GENITOURINARY: + Dysuria, frequency, incontinence, suprapubic discomfort. No retention. NEUROLOGICAL: + Diffuse debilitating weakness, unable to ambulate well. No headache, dizziness, syncope, paralysis, ataxia, numbness or tingling in the extremities, focal weakness, change in bowel or bladder control, seizure. MUSCULOSKELETAL: + muscle, back pain, joint pain or stiffness. HEMATOLOGIC: No anemia, bleeding or bruising. LYMPHATICS: No enlarged nodes. No history of splenectomy. PSYCHIATRIC: + History of anxiety and depression/bipolar disorder. ENDOCRINOLOGIC: No reports of sweating, cold or heat intolerance. No polyuria orpolydipsia. ALLERGIES: + History of asthma, hives, allergic rhinitis. Vital Signs Vital Signs Vital Signs: 11/04/24 12:30 Temperature 97.9 F Temperature Source Oral Pulse Rate 96 Respiratory Rate 20 H Blood Pressure 89/57 L Blood Pressure Mean 67 Pulse Ox 95 Oxygen Delivery Method Room Air Weight Weight: 257 lb 11.526 oz Body Mass Index (BMI) 47.1 Physical Exam Narrative Physical Examination: General: Awake, alert, oriented x 3 and cooperative, laying in ED bed, tearful with discussions about recent situations, homelessness status. Skin: Normal color, normal turgor, no icterus, no cyanosis except occasional stage ecchymoses, abrasion, notable intertrigo especially groin folds. HEENT: AT/NC, EOMI, PERRLA, moderately dry MM, mild thrush evident, no carotid bruits or JVD noted. Lungs: Diminished, greater bases, distant likely secondary to habitus, no evidence of distress, no rales, ronchi or wheezing. Heart: Regular rate and rhythm; no gallop, rub audible. Abdomen: Soft, morbidly obese, NTTP except mild discomfort with suprapubic palpation, distant BS, difficult to discern distention and HSM given habitus ND,normal BS, no HSM. Extremities: No cyanosis, no clubbing, no marked distal pitting edema. Neurological: Patient awake, alert, oriented as noted, cognitive function intact; pupils equally reactive to light and accommodation, cranial nerves grossnormal, moving all 4 extremities, strength severely globally decreased Psychiatric: Affect appears fatigued, tearful with discussions, does have underlying anxiety and depression/bipolar disorder. Results Lab / Micro Data 11/04/24 13:10 11/04/24 13:10 Labs: Laboratory Results - last 24 hr 11/04/24 13:00: Urine Color Yellow, Urine Clarity Sl. Cloudy, Urine pH 5.0, Ur Specific Boutte 1.020, Urine Protein 15 H, Urine Glucose (UA) Normal, Urine Ketones Negative, Urine Occult Blood 50 H, Urine Nitrite Positive H, Urine Bilirubin Negative, Urine Urobilinogen 1 H, Ur Leukocyte Esterase 500 H, Urine RBC 0 SEEN, Urine WBC 25-50 SEEN, Ur Squamous Epith Cells 0 SEEN, Urine Bacteria3+, Urine Mucus 0 SEEN 11/04/24 13:10: WBC 9.9, RBC 4.62, Hgb 14.4, Hct 43.9, MCV 95.0, MCH 31.2, MCHC 32.8, RDW Std Deviation 46.8 H, RDW Coeff of Robert 13.2, Plt Count 261, MPV 10.3, Immature Gran % (Auto) 0.200, Neut % (Auto) 70.2 H, Lymph % (Auto) 19.2, Price % (Auto) 7.3, Eos % (Auto) 2.9, Baso % (Auto) 0.2, Absolute Neuts (auto) 6.9, Absolute Lymphs (auto) 1.90, Nucleated RBC % 0, Sodium 142, Potassium 3.7, Chloride 105, Carbon Dioxide 26.2, Anion Gap 11, BUN 13, Creatinine 1.48 H, Estim Creat Clear Calc 47.80 L, Est GFR (MDRD) Non-Af 40 L, BUN/Creatinine Ratio 8.9 L, Glucose 117 H, Calcium 9.3 Assessment & Plan Assessment/Plan (1) Urinary tract infection: PLAN: Plan The patient is a 64 y/o F w/ PMHx: Diabetes mellitus type II, COPD/Asthma, CKD stage III unclear subtype per GFR trending, PAF, HTN, HLD, Anxiety and Depression/bipolar disorder, Tobacco use, Morbid obesity, GERD who presents to the [facility] ED on 11/04/2024 with history of myriad of complaints noting that she is currently living with a friend who are moving out of the house that they have been staying at and she does not have a place to stay unable to care for herself noting significant weakness and debility over the last several weeks with difficulty walking because of her weakness with inability to even bathe with or maintain appropriate hygiene prompting eventual transition to the ED to assure evaluation and care. #1. Acute Debility, Adult FTT secondary to Acute Complicated Urinary Tract Infection with high risk for fall, inability to care for self, suspect skilled needs: Will admit to [facility] upon ED evaluation remarkable, pending UCx, will give additional IV fluid bolus and continue due to IVFs, monitor I/Os, continue IV Rocephin w/ transition as able pending sensitivities and speciation. Bld cx x2 obtained in the ED. PT/OT/case management consult for discharge planning with skilled facility needs at this time apparent. #2. Diabetes mellitus type II: Noted history, per current list does not appear to be on regimen, clarifying, hemoglobin A1c requested, maintain on in the interim ADA diet, accu checks w/ ISS. #3. Chronic COPD/asthma: Will temporally hold home inhalers in the interim placed on ATC budesonide therapy, PRN albuterol, HOB, IS parameters. Will also start oral nystatin swish and swallow for suspected mild thrush on examination suspected likely secondary to usage of her inhalers without rinsing her mouth. #4. Chronic Kidney Disease Stage III, unclear subtype per GFR trend: Admission BUN/Cr 13/1.48, GFR 40, baseline renal function primarily 1.3-1.4, repeat BMP Sneha. #5. PAF: Per current list does not appear to be on rate or rhythm agent, will continue patient home Eliquis regimen #6. Hypertension: Given low BP upon presentation we will continue to hydrate, temporally hold Lasix, add back once clinically appropriate. PRN hydralazine. #7. Hyperlipidemia: Will continue patient on statin therapy. #8. Anxiety and depression/bipolar disorder: Will continue patient home trazodone, Seroquel, low-dose as needed lorazepam and Celexa regimen with hold for sedation as needed. #9. Tobacco Abuse: Encouraged cessation, inpatient consultation per RT, NR if desired. #10. Morbid Obesity: Weight loss and lifestyle changes encouraged. #11. GERD: Working patient on PPI. #12. Homelessness: Patient had previously been living in a trailer with her family and then transition to an apartment with friends but unfortunately they are moving out and she currently has no home at discharge, high risk for nonadherence to treatment and subsequent increased risk for complications and readmission, not clinically appropriate for consideration for group home. #13. DVT prophylaxis: Will continue patient home Eliquis regimen. #14. CODE status: Patient does not have healthcare power of attorney general or living will in place but she specifically notes she would want her niece Felecia to beher medical decision-maker if necessary. She does have daughters but she does specifically state that she wants her niece to be the decision-maker if it was necessary not her children. Discussed CODE status at length including difference between FULL code, DNR-CCA and DNR-CC status. Following discussions about the differences in these status, requested Full Code status. Advanced CarePlanning Face to Face Time: 16 minutes. Charges/Coding Visit Charges Inpatient E&M: 77236 Init Hosp L3 Procedures Hospitalists Procedures: 34664 Advncd Care Plan 30 Min 11/04/24 1500 <Electronically signed by Lauren Vela MD> Cosigner Signature (if applicable): CC: Dr. Lauren Vela MD; Dr. Homer Bradford MD~ Signed [facility] Work Phone: Hospital course Narrative No data available for this section [facility] Hospital Discharge instructions Additional Instructions Prednisone may make your blood sugars go up since you are a diabetic. Make sure you check your blood sugars at least once daily, if they go over 400, come to the ER. You already received a dose of prednisone for today, so start the prescription tomorrow 09/13.[facility] Work Phone: Hospital Discharge instructions Additional Instructions Implant Used?: [facility] Work Phone: Hospital Discharge instructionsAdditional Instructions Date of Discharge: 01/11/25[facility] Work Phone: Hospital Discharge instructionsAdditional Instructions - Continue taking the full course of doxycycline exactly as prescribed, if able. - Start the prescribed prednisone tomorrow 05/01 to help reduce airway inflammation. - Use your nebulizer at home whenever you feel short of breath. Alternatively we prescribed you a rescue inhaler that you could also use if you are having trouble with access to your nebulizer.[facility] Work Phone: Progress note No data available for this section [facility] Reason for referral (narrative)* Diagnostic Procedure Only (Routine) - Pending Review Specialty Diagnoses / Procedures Referred By Contac t Referred To Contact BR IMAGING Diagnoses Encounter for screening mammogram for breast cancer Procedures JACI SCREENING SCREENING MAMMOGRAPHY BI 2-VIEW BREAST INC CAD Homer Bradford MD [address] [place] [address] [facility] [address] [place] [address] Referral ID Status Reason Start Date Expiration Date Visits Requested Visits Authorized [id number] Pending Review Auto-Generat ed Referral 07/28/2022 08/27/2023 1 1 [facility] for referral (narrative)* Outpatient Procedure (Routine) - Authorized Specialty Diagnoses / Procedures Referred By Contac t Referred To [facility] Diagnoses Diminished pulses in lower extremity Procedures PVR ANK PRESS BRUCE VAS LAB NON-INVAS PHYSIOLOGIC STD EXTREMITY ART 2 LEVEL Dennys Pool [address] [place] [address] [facility] [address] [place] [address] Referral ID Status Reason Start Date Expiration Date Visits Requested Visits Authorized [id number] Authorized Auto-Generat ed Referral 01/12/2023 01/12/2024 1 1 [facility] for referral (narrative)* Diagnostic Procedure Only (Routine) - Authorized Specialty Diagnoses / Procedures Referred By Ky t Referred To Contact [facility] IM[facility] Diagnoses Encounter for screening mammogram for breast cancer Procedures JACI SCREENING SCREENING MAMMOGRAPHY BI 2-VIEW BREAST INC CAD Homer Bradford MD [address] [place] [address] [facility] [address] [place] [address] Referral ID Status Reason Start Date Expiration Date Visits Requested Visits Authorized [id number] Authorized Auto-Generat ed Referral 07/20/2023 08/18/2024 1 1 [facility] for referral (narrative)No reason for referral information availableWTr[facility] Work Phone: Reason for visit Narrative* Diagnostic Procedure Only (Routine) - Closed Specialty Diagnoses / Procedures Referred By Ky t Referred To Contact XR IMAGING Diagnoses Chronic pain of both shoulders Procedures XR SHOULDER GENERAL 3V OR MORE AP/TRUE AP/OTHER RIGHT RADEX SHOULDER COMPLETE MINIMUM 2 VIEWS Meagan Yusuf PA-C [address] [place] [address] [place] [address] Referral ID Status Reason Start Date Expiration Date V isits Requested Visits Authorized [id number] Closed Auto-Generate d Referral 09/27/2023 10/26/2024 1 [facility] Diagnostic Procedure Only (Routine) - Closed Specialty Diagnoses / Procedures Referred By Contac t Referred To Contact [facility] Diagnoses Encounter for screening mammogram for breast cancer Procedures JACI SCREENING SCREENING MAMMOGRAPHY BI 2-VIEW BREAST INC CAD Homer Bradford MD [address] [place] [address] [facility] [address] [place] [address] Referral ID Status Reason Start Date Expiration Date V isits Requested Visits Authorized [id number] Closed Auto-Generate d Referral 11/14/2023 12/13/2024 1 1 [facility] Summary Purpose Family History No Family History Records Found Relationship Condition Age at Onset Recorded Date/T pierce grandmother Malignant neoplasm Unknown father Malignant neoplasm Unknown sister Malignant neoplasm of breast Unknown Advance Directives No Advanced Directives Records Found Advance Directive Response Recorded Date/ Time Advance Directives No January 14 4:13pm Living Will No August 25 7:42pm Power of Recruitment And Outreach Assistant No August 25, 2021 7:42pm Advance Directive Response Recorded Date/ Time Advance Directives No January 14 3:13pm Living Will No September 12, 2 023 11:06am Power of Recruitment And Outreach Assistant No September 12, 2022 11:06am Advance Directive Response Recorded Date/ Time Advance Directives No January 14 4:13pm Living Will No December 01, 2022 2 :34pm Power of Recruitment And Outreach Assistant No December 01, 2022 2:34pm Advance Directive Response Recorded Date/ Time Advance Directives No January 14 4:13pm Living Will No November 18, 2023 11 :36am Power of Recruitment And Outreach Assistant No November 18, 2023 11:36am Advance Directive Response Recorded Date/ Time Living Will No September 12, 2 025 4:06pm Power of Recruitment And Outreach Assistant No September 12, 2024 4:06pm Advance Directives No January 14 3:13pm Advance Directive Response Recorded Date/ Time Living Will No September 12, 025 5:06pm Do you have a Healthcare Power of Recruitment And Outreach Assistant? No September 12, 2024 5:06pm Living Will No November 04, 2024 12:39pm Do you have a Healthcare Power of Recruitment And Outreach Assistant? No November 04, 2024 12:39pm Advance Directives No January 14 4:13pm Advance Directive Response Recorded Date/ Time Living Will No September 12, 5:06pm Do you have a Healthcare Power of Recruitment And Outreach Assistant? No September 12, 2024 5:06pm Do you have a Healthcare Power of Recruitment And Outreach Assistant? No November 12, 2024 2:30am Living Will No November 04, 2024 4:45pm Do you have a Healthcare Power of Recruitment And Outreach Assistant? No November 04, 2024 4:45pm Do you have a Healthcare Power of Recruitment And Outreach Assistant? No November 14, 2024 6:51am Do you have a Healthcare Power of Recruitment And Outreach Assistant? No January 08, 2025 5:00pm Advance Directives No January 14 4:13pm Advance Directive Response Recorded Date/ Time Living Will No September 12 5:06pm Do you have a Healthcare Power of Recruitment And Outreach Assistant? No September 12, 2024 5:06pm Do you have a Healthcare Power of Recruitment And Outreach Assistant? No November 12, 2024 2:30am Living Will No November 04, 2024 4:45pm Do you have a Healthcare Power of Recruitment And Outreach Assistant? No November 04, 2024 4:45pm Do you have a Healthcare Power of Recruitment And Outreach Assistant? No November 14, 2024 6:51am Do you have a Healthcare Power of Recruitment And Outreach Assistant? No January 08, 2025 8:52pm Advance Directives No January 14 4:13pm Advance Directive Response Recorded Date/ Time Do you have a Healthcare Power of Recruitment And Outreach Assistant? No November 12, 2024 2:30am Living Will No November 04, 2024 4:45pm Do you have a Healthcare Power of Recruitment And Outreach Assistant? No November 04, 2024 4:45pm Do you have a Healthcare Power of Recruitment And Outreach Assistant? No November 14, 2024 6:51am Do you have a Healthcare Power of Recruitment And Outreach Assistant? No January 08, 2025 8:52pm Advance Directives No January 14 4:13pm Advance Directive Response Recorded Date/ Time Do you have a Healthcare Power of Recruitment And Outreach Assistant? No November 12, 2024 2:30am Living Will No November 04, 2024 4:45pm Do you have a Healthcare Power of Recruitment And Outreach Assistant? No November 04, 2024 4:45pm Do you have a Healthcare Power of Recruitment And Outreach Assistant? No November 14, 2024 6:51am Do you have a Healthcare Power of Recruitment And Outreach Assistant? No January 08, 2025 8:52pm Advance Directives No January 31 1:47pm Advance Directive Response Recorded Date/ Time Do you have a Healthcare Power of Recruitment And Outreach Assistant? No November 12, 2024 2:30am Do you have a Healthcare Power of Recruitment And Outreach Assistant? No November 14, 2024 6:51am Do you have a Healthcare Power of Recruitment And Outreach Assistant? No January 08, 2025 8:52pm Advance Directives No January 31 1:47pm Advance Directive Response Recorded Date/ Time Do you have a Healthcare Power of Recruitment And Outreach Assistant? No January 08, 2025 8:52pm Advance Directives No January 31 1:47pm Advance Directive Response Recorded Date/ Time Do you have a Healthcare Power of Recruitment And Outreach Assistant? No April 30, 2025 5:47pm Advance Directives No January 31 1:47pm Reason for Referral Specialty Diagnoses / Procedures Referred By Ky t Referred To Contact Nephrology Diagnoses Stage 3b chronic kidney disease (HCC) Procedures CONSULT TO NEPHROLOGY OFFICE/OUTPATIENT [facility] 60-74 MINUTES Homer Bradford MD [address] [place] [address] Referral ID Status Reason Start Date Expiration Date Visits Requested Visits Authorized [id number] Authorized PCP Requested Referral 12/16/2021 12/16/2022 1 1 Specialty Diagnoses / Procedures Referred By Ky ibrahim Referred To Contact Meagan Yusuf PA-C [address] [place] [address] Referral ID Status Reason Start Date Expiration Date Visits Re quested Visits Authorized [id number] Closed 1 1 Specialty Diagnoses / Procedures Referred By Contac t Referred To Contact General Surgery Diagnoses Screening for colon cancer Procedures CONSULT TO GENERAL SURGERY OFFICE/OUTPATIENT [facility] MDM 60-74 MINUTES Meagan Yusuf PA-C [address] [place] [address] Referral ID Status Reason Start Date Expiration Date Visits Requested Visits Authorized [id number] Authorized PCP Requested Referral 02/28/2023 02/28/2024 1 1 Specialty Diagnoses / Procedures Referred By Contac t Referred To Contact Orthopedics Diagnoses Chronic pain of both shoulders Procedures CONSULT TO ORTHOPAEDICS OFFICE/OUTPATIENT [facility] MDM 60 MINUTES Meagan Yusuf PA-C [address] [place] [address] Referral ID Status Reason Start Date Expiration Date Visits Requested Visits Authorized [id number] Authorized PCP Requested Referral 09/27/2023 09/26/2024 1 1 Specialty Diagnoses / Procedures Referred By Contac t Referred To Contact XR IMAGING Diagnoses Chronic pain of both shoulders Procedures XR SHOULDER GENERAL 3V OR MORE AP/TRUE AP/OTHER RIGHT RADEX SHOULDER COMPLETE MINIMUM 2 VIEWS Meagan Yusuf PA-C [address] [place] [address] [place] [address] Referral ID Status Reason Start Date Expiration Date Visits Requested Visits Authorized [id number] Pending Review Auto-Generat ed Referral 09/27/2023 10/26/2024 1 1 Specialty Diagnoses / Procedures Referred By Contac t Referred To Contact XR IMAGING Diagnoses Chronic pain of both shoulders Procedures XR SHOULDER GENERAL 3V OR MORE AP/TRUE AP/OTHER LEFT RADEX SHOULDER COMPLETE MINIMUM 2 VIEWS Meagan Yusuf PA-C [address] [place] [address] [place] [address] Referral ID Status Reason Start Date Expiration Date Visits Requested Visits Authorized [id number] Pending Review Auto-Generat ed Referral 09/27/2023 10/26/2024 1 1 Specialty Diagnoses / Procedures Referred By Contac t Referred To Contact [facility] Diagnoses Rotator cuff disorder, left Procedures CONSULT TO PHYSICAL THERAPY PHYSICAL THERAPY EVALUATION [facility] 45 MINS Jarod Godwin V, DO [address] [place] [address] [facility] [place] [address] [place] [address] Referral ID Status Reason Start Date Expiration Date Visits Requested Visits Authorized [id number] Authorized Auto-Generat ed Referral 07/18/2023 07/17/2024 1 1 Specialty Diagnoses / Procedures Referred By Contac t Referred To Contact Neurology Diagnoses Hypotension, unspecified hypotension type History of CVA (cerebrovascular accident) Migraine without aura and without status migrainosus, not intractable Extrapyramidal reaction Tardive dyskinesia Chronic insomnia Procedures CONSULT TO NEUROLOGY OFFICE/OUTPATIENT [facility] 60 MINUTES Homer Bradford MD [address] [place] [address] Referral ID Status Reason Start Date Expiration Date Visits Requested Visits Authorized [id number] Authorized PCP Requested Referral 11/14/2023 11/13/2024 1 1 Specialty Diagnoses / Procedures Referred By Contac t Referred To Contact [facility] Diagnoses Encounter for screening mammogram for breast cancer Procedures JACI SCREENING SCREENING MAMMOGRAPHY BI 2-VIEW BREAST INC CAD Homer Bradford MD [address] [place] [address] [facility] [address] [place] [id number] Referral ID Status Reason Start Date Expiration Date Visits Requested Visits Authorized [id number] Authorized Auto-Generat ed Referral 11/14/2023 12/13/2024 1 1 Specialty Diagnoses / Procedures Referred By Contac t Referred To Contact [facility] Diagnoses Rotator cuff disorder, left Procedures PT REHAB FOLLOW UP ORDER THERAPEUTIC EXERCISES RE, EA 15 MIN. Antwan Cope, PT [address] [place] [address] [facility] [facility] [address] [place] [id number] Referral ID Status Reason Start Date Expiration Date Visits Requested Visits Authorized [id number] Pending Review PCP Requested Referral Auto-Generate d Referral 11/29/2023 02/27/2024 1 1 Specialty Diagnoses / Procedures Referred By Ky t Referred To Contact Ophthalmology Diagnoses Type 2 diabetes mellitus with stage 3b chronic kidney disease, without long-term current use of insulin (HCC) Procedures CONSULT TO OPHTHALMOLOGY OFFICE/OUTPATIENT [facility] 60 MINUTES Meagan Yusuf PA-C [address] [place] [address] Referral ID Status Reason Start Date Expiration Date Visits Requested Visits Authorized [id number] Authorized PCP Requested Referral 03/22/2024 03/22/2025 1 1 Chief Complaint and Reason for Visit Chief Complaint RESP FAILURE, BL PNA RESP FAILURE, BL PNA RESP FAILURE, BL PNA RESP FAILURE, BL PNA RESP FAILURE, BL PNA RESP FAILURE, BL PNA RESP FAILURE, BL PNA RESP FAILURE, BL PNA RESP FAILURE, BL PNA RESP FAILURE, BL PNA RESP FAILURE, BL PNA RESP FAILURE, BL PNA RESP FAILURE, BL PNA RESP FAILURE, BL PNA RESP FAILURE, BL PNA RESP FAILURE, BL PNA RESP FAILURE, BL PNA RESP FAILURE, BL PNA RESP FAILURE, BL PNA RESP FAILURE, BL PNA RESP FAILURE, BL PNA RESP FAILURE, BL PNA RESP FAILURE, BL PNA RESP FAILURE, BL PNA RESP FAILURE, BL PNA RESP FAILURE, BL PNA RESP FAILURE, BL PNA RESP FAILURE, BL PNA RESP FAILURE, BL PNA Hospital FU DYSPHAGIA Reason for Visit Acute on chronic ninfa al insufficiency Acidosis, lactic Acute hypotension Bilateral interstitial pneumonia Dehydration, moderate Hypokalemia Sepsis Septic shock Bipolar disorder COPD (chronic obstructive pulmonary disease) Chief Complaint DYSPHAGIA 3 M FU CHRONIC OBSTRUCTIVE PULMONARY DISEASE Reason for Visit Nicotine dependence, cigarettes, uncomplicated COPD (chronic obstructive pulmonary disease) Obesity, morbid, BMI 40.0-49.9 Chief Complaint DYSPHAGIA 3 M FU CHRONIC OBSTRUCTIVE PULMONARY DISEASE CHRONIC OBSTRUCTIVE PULMONARY DISEASE CHRONIC OBSTRUCTIVE PULMONARY DISEASE J44.9 J44.9 6 wk FU Reason for Visit Nicotine dependence, cigarettes, uncomplicated COPD (chronic obstructive pulmonary disease) Obesity, morbid, BMI 40.0-49.9 Smoking greater than 40 pack years Asthma-COPD overlap syndrome Bipolar disorder Chief Complaint RASH Chief Complaint RASH NICOTINE DEP Chief Complaint RASH NICOTINE DEP Abnormal CT scan follow-up Reason for Visit Lung nodule Dyspnea Chief Complaint NICOTINE DEP Abnormal CT scan follow-up RUL MASS Solitary pulmonary nodule Reason for Visit Lung nodule Dyspnea Chief Complaint Removal, Interstim T herapy 1, Removal interstim ba Chief Complaint Admit Date CVA, COVID September 12, 2024 2:50pm chest pain September 12, 2024 2:59pm CVA, COVID September 13, 2024 5:18pm CVA, COVID September 14, 2024 3:46pm CVA, COVID September 15, 2024 9:21 am CVA, COVID September 16, 2024 9:24 am CVA, COVID September 17, 2024 10:3 4am CVA, COVID September 18, 2024 10:5 5am CVA, COVID September 19, 2024 1:13 pm CVA, COVID September 20, 2024 11:5 5am CVA, COVID September 21, 2024 12:2 8pm Reason for Visit Admit Date Chest pain September 12, 2024 2:50pm COVID September 12, 2024 2:50pm Stroke September 12, 2024 2:50pm CKD (chronic kidney disease) stage 3, GF R 30-59 ml/min September 12, 2024 2:50pm COPD exacerbation September 12, 2024 2:50pm Chief Complaint Admit Date CVA, COVID September 12, 2024 2:50pm chest pain September 12, 2024 2:59pm CVA, COVID September 13, 2024 5:18pm CVA, COVID September 14, 2024 3:46pm CVA, COVID September 15, 2024 9:21 am CVA, COVID September 16, 2024 9:24 am CVA, COVID September 17, 2024 10:3 4am CVA, COVID September 18, 2024 10:5 5am CVA, COVID September 19, 2024 1:13 pm CVA, COVID September 20, 2024 11:5 5am CVA, COVID September 21, 2024 12:2 8pm weakness November 04, 2024 2:2 9pm ADULT FTT, DEBILITY, UTI November 04 2:30pm Reason for Visit Admit Date CKD (chronic kidney disease) stage 3, GF R 30-59 ml/min September 12, 2024 2:50pm Chest pain September 12, 2024 2:50pm COPD exacerbation September 12, 2024 2:50pm COVID September 12, 2024 2:50pm Stroke September 12, 2024 2:50pm Urinary tract infection November 04, 2024 2:30pm Chief Complaint Admit Date CVA, COVID September 12, 2024 2:50pm chest pain September 12, 2024 2:59pm CVA, COVID September 13, 2024 5:18pm CVA, COVID September 14, 2024 3:46pm CVA, COVID September 15, 2024 9:21 am CVA, COVID September 16, 2024 9:24 am CVA, COVID September 17, 2024 10:3 4am CVA, COVID September 18, 2024 10:5 5am CVA, COVID September 19, 2024 1:13 pm CVA, COVID September 20, 2024 11:5 5am CVA, COVID September 21, 2024 12:2 8pm weakness November 04, 2024 2:2 9pm ADULT FTT, DEBILITY, UTI November 04 2:30pm ADULT FTT, DEBILITY, UTI November 05 5:41pm ADULT FTT, DEBILITY, UTI November 06 3:55pm ADULT FTT, DEBILITY, UTI November 07 4:48pm UNABLE TO VOID November 12, 2024 2:2 6am abd pain November 14, 2024 6:4 9am SEPSIS UTI January 08, 2025 7:30 pm Reason for Visit Admit Date CKD (chronic kidney disease) stage 3, GF R 30-59 ml/min September 12, 2024 2:50pm Chest pain September 12, 2024 2:50pm COPD exacerbation September 12, 2024 2:50pm COVID September 12, 2024 2:50pm Stroke September 12, 2024 2:50pm Urinary tract infection November 04, 2024 2:30pm Acidosis, lactic January 08, 2025 7:30 pm Acute alteration in mental status December 172024 7:30pm Acute dehydration January 08, 2025 7:30 pm Acute hypoxemic respiratory failure January 08, 2025 7:30pm Complicated urinary tract infection January 08, 2025 7:30pm Elevated temperature January 08, 2025 7:3 0pm Sepsis January 08, 2025 7:30 pm Sinus tachycardia seen on cardiac monito r January 08, 2025 7:30pm Jbduc-ek-[id number] kidney injury December 7:30pm DM (diabetes mellitus), type 2 December 7:30pm History of COPD January 08, 2025 7:30 pm HLD (hyperlipidemia) January 08, 2025 7:3 0pm Chief Complaint Admit Date CVA, COVID September 12, 2024 2:50pm CVA, COVID September 13, 2024 5:18pm CVA, COVID September 14, 2024 3:46pm CVA, COVID September 15, 2024 9:21 am CVA, COVID September 16, 2024 9:24 am CVA, COVID September 17, 2024 10:3 4am CVA, COVID September 18, 2024 10:5 5am CVA, COVID September 19, 2024 1:13 pm CVA, COVID September 20, 2024 11:5 5am CVA, COVID September 21, 2024 12:2 8pm weakness November 04, 2024 2:2 9pm ADULT FTT, DEBILITY, UTI November 04 2:30pm ADULT FTT, DEBILITY, UTI November 05 5:41pm ADULT FTT, DEBILITY, UTI November 06 3:55pm ADULT FTT, DEBILITY, UTI November 07 4:48pm UNABLE TO VOID November 12, 2024 2:2 6am abd pain November 14, 2024 6:4 9am SEPSIS UTI January 08, 2025 7:23 pm SEPSIS UTI January 09, 2025 12:0 9pm SEPSIS UTI January 10, 2025 7:31 am SEPSIS UTI January 10, 2025 8:09 am SEPSIS UTI January 11, 2025 12:0 5pm Reason for Visit Admit Date CKD (chronic kidney disease) stage 3, GF R 30-59 ml/min September 12, 2024 2:50pm Chest pain September 12, 2024 2:50pm COPD exacerbation September 12, 2024 2:50pm COVID September 12, 2024 2:50pm Stroke September 12, 2024 2:50pm Urinary tract infection November 04, 2024 2:30pm Acidosis, lactic January 08, 2025 7:23 pm Acute alteration in mental status December 172024 7:23pm Acute dehydration January 08, 2025 7:23 pm Acute hypoxemic respiratory failure January 08, 2025 7:23pm Complicated urinary tract infection January 08, 2025 7:23pm Elevated temperature January 08, 2025 7:2 3pm Sepsis January 08, 2025 7:23 pm Sinus tachycardia seen on cardiac monito r January 08, 2025 7:23pm Qbexf-mp-egdcpha kidney injury December 7:23pm DM (diabetes mellitus), type 2 December 7:23pm History of COPD January 08, 2025 7:23 pm HLD (hyperlipidemia) January 08, 2025 7:2 3pm Chief Complaint Admit Date weakness November 04, 2024 2:2 9pm ADULT FTT, DEBILITY, UTI November 04 2:30pm ADULT FTT, DEBILITY, UTI November 05 5:41pm ADULT FTT, DEBILITY, UTI November 06 3:55pm ADULT FTT, DEBILITY, UTI November 07 4:48pm UNABLE TO VOID November 12, 2024 2:2 6am abd pain November 14, 2024 6:4 9am SEPSIS UTI January 08, 2025 7:23 pm SEPSIS UTI January 09, 2025 12:0 9pm SEPSIS UTI January 10, 2025 7:31 am SEPSIS UTI January 10, 2025 8:09 am SEPSIS UTI January 11, 2025 12:0 5pm WOUND 2025 9:56 am WOUND January 31, 2025 11:5 2am Hospital FU January 31, 2025 12:3 2pm Reason for Visit Admit Date Urinary tract infection November 04, 2024 2:30pm Acidosis, lactic January 08, 2025 7:23 pm Acute alteration in mental status December 172024 7:23pm Acute dehydration January 08, 2025 7:23 pm Elevated temperature January 08, 2025 7:2 3pm Sinus tachycardia seen on cardiac monito r January 08, 2025 7:23pm Alath-ae-wdrlkky kidney injury December 7:23pm DM (diabetes mellitus), type 2 December 7:23pm HLD (hyperlipidemia) January 08, 2025 7:2 3pm Acute hypoxemic respiratory failure January 08, 2025 7:23pm Sepsis January 08, 2025 7:23 pm History of COPD January 08, 2025 7:23 pm Complicated urinary tract infection January 08, 2025 7:23pm Decubitus ulcer of buttock, stage 1 2025 9:56am Encounter for smoking cessation counseli mable 2025 9:56am Paroxysmal atrial fibrillation January 9:56am Smoking greater than 40 pack years 2025 9:56am Asthma-COPD overlap syndrome 2025 9:56am Asthmatic bronchitis , chronic January 9:56am Bipolar disorder 2025 9:56 am CKD (chronic kidney disease) stage 3, GF R 30-59 ml/min 2025 9:56am 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 rico schaeffer 2025 9:56am COPD (chronic obstructive pulmonary dise ase) 2025 9:56am DM (diabetes mellitus), type 2 January 9:56am HLD (hyperlipidemia) 2025 9:5 6am Nicotine addiction 2025 9:56 am Obesity, morbid, BMI 40.0-49.9 January 9:56am Tardive dyskinesia 2025 9:56 am Urinary incontinence 2025 9:5 6am PVD (peripheral vascular disease) January 152024 9:56am Dyspnea January 31, 2025 12:3 2pm Chief Complaint Admit Date weakness November 04, 2024 2:2 9pm ADULT FTT, DEBILITY, UTI November 04 2:30pm ADULT FTT, DEBILITY, UTI November 05 5:41pm ADULT FTT, DEBILITY, UTI November 06 3:55pm ADULT FTT, DEBILITY, UTI November 07 4:48pm UNABLE TO VOID November 12, 2024 2:2 6am abd pain November 14, 2024 6:4 9am SEPSIS UTI January 08, 2025 7:23 pm SEPSIS UTI January 09, 2025 12:0 9pm SEPSIS UTI January 10, 2025 7:31 am SEPSIS UTI January 10, 2025 8:09 am SEPSIS UTI January 11, 2025 12:0 5pm WOUND 2025 9:56 am WOUND 2025 11:5 2am Hospital FU January 31, 2025 12:3 2pm WOUND February 19, 2025 8:2 5am Urinary tract infection February 27 1:59pm Reason for Visit Admit Date Urinary tract infection November 04, 2024 2:30pm Acidosis, lactic January 08, 2025 7:23 pm Acute alteration in mental status December 172024 7:23pm Acute dehydration January 08, 2025 7:23 pm Elevated temperature January 08, 2025 7:2 3pm Sinus tachycardia seen on cardiac monito r January 08, 2025 7:23pm Gbqgw-jf-epmpkgy kidney injury December 7:23pm DM (diabetes mellitus), type 2 December 7:23pm HLD (hyperlipidemia) January 08, 2025 7:2 3pm Acute hypoxemic respiratory failure January 08, 2025 7:23pm Sepsis January 08, 2025 7:23 pm History of COPD January 08, 2025 7:23 pm Complicated urinary tract infection January 08, 2025 7:23pm Decubitus ulcer of buttock, stage 1 2025 9:56am Encounter for smoking cessation counselidania akins 2025 9:56am Paroxysmal atrial fibrillation January 9:56am Smoking greater than 40 pack years 2025 9:56am Asthma-COPD overlap syndrome 2025 9:56am Asthmatic bronchitis , chronic January 9:56am Bipolar disorder 2025 9:56 am CKD (chronic kidney disease) stage 3, GF R 30-59 ml/min 2025 9:56am 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 rico shaws 2025 9:56am COPD (chronic obstructive pulmonary dise ase) 2025 9:56am DM (diabetes mellitus), type 2 January 9:56am HLD (hyperlipidemia) 2025 9:5 6am Nicotine addiction 2025 9:56 am Obesity, morbid, BMI 40.0-49.9 January 9:56am Tardive dyskinesia 2025 9:56 am Urinary incontinence 2025 9:5 6am PVD (peripheral vascular disease) January 152024 9:56am Dyspnea January 31, 2025 12:3 2pm Urge incontinence February 27, 2025 1: 59pm Urinary tract infection February 27 1:59pm Chief Complaint Admit Date UNABLE TO VOID November 12, 2024 2:2 6am abd pain November 14, 2024 6:4 9am SEPSIS UTI January 08, 2025 7:23 pm SEPSIS UTI January 09, 2025 12:0 9pm SEPSIS UTI January 10, 2025 7:31 am SEPSIS UTI January 10, 2025 8:09 am SEPSIS UTI January 11, 2025 12:0 5pm WOUND 2025 9:56 am WOUND 2025 11:5 2am Hospital FU January 31, 2025 12:3 2pm WOUND February 19, 2025 8:2 5am Urinary tract infection February 27 1:59pm uti/open wound March 11, 2025 11 :16am Reason for Visit Admit Date Acidosis, lactic January 08, 2025 7:23 pm Acute alteration in mental status December 172024 7:23pm Acute dehydration January 08, 2025 7:23 pm Elevated temperature January 08, 2025 7:2 3pm Sinus tachycardia seen on cardiac monito r January 08, 2025 7:23pm Sfjkc-yf-lsszxxj kidney injury December 7:23pm DM (diabetes mellitus), type 2 December 7:23pm HLD (hyperlipidemia) January 08, 2025 7:2 3pm Acute hypoxemic respiratory failure January 08, 2025 7:23pm Sepsis January 08, 2025 7:23 pm History of COPD January 08, 2025 7:23 pm Complicated urinary tract infection January 08, 2025 7:23pm Decubitus ulcer of buttock, stage 1 2025 9:56am Encounter for smoking cessation counselidania akins 2025 9:56am Paroxysmal atrial fibrillation January 9:56am Smoking greater than 40 pack years 2025 9:56am Asthma-COPD overlap syndrome 2025 9:56am Asthmatic bronchitis , chronic January 9:56am Bipolar disorder 2025 9:56 am CKD (chronic kidney disease) stage 3, GF R 30-59 ml/min 2025 9:56am 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 melli tus 2025 9:56am COPD (chronic obstructive pulmonary dise ase) 2025 9:56am DM (diabetes mellitus), type 2 January 9:56am HLD (hyperlipidemia) 2025 9:5 6am Nicotine addiction 2025 9:56 am Obesity, morbid, BMI 40.0-49.9 January 9:56am Tardive dyskinesia 2025 9:56 am Urinary incontinence 2025 9:5 6am PVD (peripheral vascular disease) January 152024 9:56am Dyspnea January 31, 2025 12:3 2pm Urge incontinence February 27, 2025 1: 59pm Urinary tract infection February 27 1:59pm Overactive bladder March 11, 2025 11 :16am Urge incontinence March 11, 2025 11 :16am Urinary tract infection March 11 11:16am Chief Complaint Admit Date SEPSIS UTI January 08, 2025 7:23 pm SEPSIS UTI January 09, 2025 12:0 9pm SEPSIS UTI January 10, 2025 7:31 am SEPSIS UTI January 10, 2025 8:09 am SEPSIS UTI January 11, 2025 12:0 5pm WOUND 2025 9:56 am WOUND 2025 11:5 2am Hospital FU January 31, 2025 12:3 2pm WOUND February 19, 2025 8:2 5am Urinary tract infection February 27 1:59pm uti/open wound March 11, 2025 11 :16am Chief Complaint Admit Date SEPSIS UTI January 08, 2025 7:23 pm SEPSIS UTI January 09, 2025 12:0 9pm SEPSIS UTI January 10, 2025 7:31 am SEPSIS UTI January 10, 2025 8:09 am SEPSIS UTI January 11, 2025 12:0 5pm WOUND 2025 9:56 am WOUND 2025 11:5 2am Hospital FU January 31, 2025 12:3 2pm WOUND February 19, 2025 8:2 5am Urinary tract infection February 27 1:59pm uti/open wound March 11, 2025 11 :16am WOUND March 19, 2025 11:23am Chief Complaint Admit Date WOUND 2025 9:56 am WOUND 2025 11:5 2am Hospital FU January 31, 2025 12:3 2pm WOUND February 19, 2025 8:2 5am Urinary tract infection February 27 1:59pm uti/open wound March 11, 2025 11 :16am WOUND March 19, 2025 11:23am cp April 30, 2025 5 :46pm Reason for Visit Admit Date Decubitus ulcer of buttock, stage 1 2025 9:56am Encounter for smoking cessation counseli mable 2025 9:56am Paroxysmal atrial fibrillation January 9:56am Smoking greater than 40 pack years 2025 9:56am Asthma-COPD overlap syndrome 2025 9:56am Asthmatic bronchitis , chronic January 9:56am Bipolar disorder 2025 9:56 am CKD (chronic kidney disease) stage 3, GF R 30-59 ml/min 2025 9:56am 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 rico shaws 2025 9:56am COPD (chronic obstructive pulmonary dise ase) 2025 9:56am DM (diabetes mellitus), type 2 January 9:56am HLD (hyperlipidemia) 2025 9:5 6am Nicotine addiction 2025 9:56 am Obesity, morbid, BMI 40.0-49.9 January 9:56am Tardive dyskinesia 2025 9:56 am Urinary incontinence 2025 9:5 6am PVD (peripheral vascular disease) January 152024 9:56am Dyspnea January 31, 2025 12:3 2pm Urge incontinence February 27, 2025 1: 59pm Urinary tract infection February 27 1:59pm Overactive bladder March 11, 2025 11 :16am Urge incontinence March 11, 2025 11 :16am Urinary tract infection March 11 11:16am Medications Administered Section Active Administered Medications - up to 3 most recent administrations Medication Order MAR Action Action Date Dose Rate Site PHENYLephrine 2.5 % 1 Drop (AK-DILATE, YELENA-SYNEPHRINE) 1 Drop, BOTH EYES, DIRECTED, Starting on Tue01/04/23 at 1530, Until Tue01/05/23 at 0329, Administer for dilation PROTECT FROM LIGHT Given 01/04/2023 3:10 PM EDT 1 Drop proparacaine 0.5 % 1 Drop (ALCAINE) 1 Drop, BOTH EYES, DIRECTED, Starting on Tue01/04/23 at 1530, Until Tue01/05/23 at 032, Administer for pneumo tonometry, tonopen tonometry, or pachymetry. In the event of a proparacaine shortage, administer tetracaine 0.5% ophthalmic drops 1 drop in the left eye as directed for pneumo tonometry, tonopen tonometry, or pachymetry Given 01/04/2023 3:10 PM EDT 1 Drop tropicamide 1 % 1 Drop (MYDRIACYL) 1 Drop, BOTH EYES, DIRECTED, Starting on Tue01/04/23 at 1530, Until Tue01/05/23 at 0329, Administer for dilation Given 01/04/2023 3:10 PM EDT 1 Drop Additional Source Comments INFORMATION SOURCE (unrecogn ized section and content) DATE CREATED AUTHOR 01/06/2019 [facility] DATE CREATED AUTHOR AUTHOR'S ORGANIZ ATION 01/06/2022 [facility] (ID) DATE CREATED AUTHOR AUTHOR'S ORGANIZ ATION 05/02/2025 [facility] DATE CREATED AUTHOR AUTHOR'S ORGANIZ ATION 05/17/2025 [facility] Source Comments (unrecognize d section and content) In the event this informatio n is protected by the Federal Confidentiality of Alcohol and Drug Abuse Patient Records regulations: The Federal rules restrict any use of the information to criminally investigate or prosecute any alcohol or drug abuse patient.[facility] the event this information is protected by the Federal Confidentiality of Alcohol and Drug Abuse Patient Records regulations: The Federal rules restrict any use of the information to criminally investigate or prosecute any alcohol or drug abuse patient.[facility] Hospital[facility] the event this information is protected by the Federal Confidentiality of Alcohol and Drug Abuse Patient Records regulations: The Federal rules restrict any use of the information to criminally investigate or prosecute any alcohol or drug abuse patient.[facility] Hospital[facility] the event this information is protected by the Federal Confidentiality of Alcohol and Drug Abuse Patient Records regulations: The Federal rules restrict any use of the information to criminally investigate or prosecute any alcohol or drug abuse patient.[facility] HospitalIn the event this information is protected by the Federal Confidentiality of Alcohol and Drug Abuse Patient Records regulations: The Federal rules restrict any use of the information to criminally investigate or prosecute any alcohol or drug abuse patient.[facility] HospitalIn the event this information is protected by the Federal Confidentiality of Alcohol and Drug Abuse Patient Records regulations: The Federal rules restrict any use of the information to criminally investigate or prosecute any alcohol or drug abuse patient.[facility] HospitalIn the event this information is protected by the Federal Confidentiality of Alcohol and Drug Abuse Patient Records regulations: The Federal rules restrict any use of the information to criminally investigate or prosecute any alcohol or drug abuse patient.[facility] HospitalIn the event this information is protected by the Federal Confidentiality of Alcohol and Drug Abuse Patient Records regulations: The Federal rules restrict any use of the information to criminally investigate or prosecute any alcohol or drug abuse patient.[facility] Hospital[facility] the event this information is protected by the Federal Confidentiality of Alcohol and Drug Abuse Patient Records regulations: The Federal rules restrict any use of the information to criminally investigate or prosecute any alcohol or drug abuse patient.[facility] Hospital[facility] the event this information is protected by the Federal Confidentiality of Alcohol and Drug Abuse Patient Records regulations: The Federal rules restrict any use of the information to criminally investigate or prosecute any alcohol or drug abuse patient.[facility] Hospital[facility] the event this information is protected by the Federal Confidentiality of Alcohol and Drug Abuse Patient Records regulations: The Federal rules restrict any use of the information to criminally investigate or prosecute any alcohol or drug abuse patient.[facility] HospitalIn the event this information is protected by the Federal Confidentiality of Alcohol and Drug Abuse Patient Records regulations: The Federal rules restrict any use of the information to criminally investigate or prosecute any alcohol or drug abuse patient.[facility] HospitalIn the event this information is protected by the Federal Confidentiality of Alcohol and Drug Abuse Patient Records regulations: The Federal rules restrict any use of the information to criminally investigate or prosecute any alcohol or drug abuse patient.[facility] HospitalIn the event this information is protected by the Federal Confidentiality of Alcohol and Drug Abuse Patient Records regulations: The Federal rules restrict any use of the information to criminally investigate or prosecute any alcohol or drug abuse patient.[facility] HospitalIn the event this information is protected by the Federal Confidentiality of Alcohol and Drug Abuse Patient Records regulations: The Federal rules restrict any use of the information to criminally investigate or prosecute any alcohol or drug abuse patient.[facility] HospitalIn the event this information is protected by the Federal Confidentiality of Alcohol and Drug Abuse Patient Records regulations: The Federal rules restrict any use of the information to criminally investigate or prosecute any alcohol or drug abuse patient.[facility] HospitalIn the event this information is protected by the Federal Confidentiality of Alcohol and Drug Abuse Patient Records regulations: The Federal rules restrict any use of the information to criminally investigate or prosecute any alcohol or drug abuse patient.[facility] HospitalIn the event this information is protected by the Federal Confidentiality of Alcohol and Drug Abuse Patient Records regulations: The Federal rules restrict any use of the information to criminally investigate or prosecute any alcohol or drug abuse patient.[facility] HospitalIn the event this information is protected by the Federal Confidentiality of Alcohol and Drug Abuse Patient Records regulations: The Federal rules restrict any use of the information to criminally investigate or prosecute any alcohol or drug abuse patient.[facility] HospitalIn the event this information is protected by the Federal Confidentiality of Alcohol and Drug Abuse Patient Records regulations: The Federal rules restrict any use of the information to criminally investigate or prosecute any alcohol or drug abuse patient.[facility] HospitalIn the event this information is protected by the Federal Confidentiality of Alcohol and Drug Abuse Patient Records regulations: The Federal rules restrict any use of the information to criminally investigate or prosecute any alcohol or drug abuse patient.[facility] HospitalIn the event this information is protected by the Federal Confidentiality of Alcohol and Drug Abuse Patient Records regulations: The Federal rules restrict any use of the information to criminally investigate or prosecute any alcohol or drug abuse patient.[facility] HospitalIn the event this information is protected by the Federal Confidentiality of Alcohol and Drug Abuse Patient Records regulations: The Federal rules restrict any use of the information to criminally investigate or prosecute any alcohol or drug abuse patient.[facility]In the event this information is protected by the Federal Confidentiality of Alcohol and Drug Abuse Patient Records regulations: The Federal rules restrict any use of the information to criminally investigate or prosecute any alcohol or drug abuse patient.[facility] HospitalIn the event this information is protected by the Federal Confidentiality of Alcohol and Drug Abuse Patient Records regulations: The Federal rules restrict any use of the information to criminally investigate or prosecute any alcohol or drug abuse patient.[facility] HospitalIn the event this information is protected by the Federal Confidentiality of Alcohol and Drug Abuse Patient Records regulations: The Federal rules restrict any use of the information to criminally investigate or prosecute any alcohol or drug abuse patient.[facility] HospitalIn the event this information is protected by the Federal Confidentiality of Alcohol and Drug Abuse Patient Records regulations: The Federal rules restrict any use of the information to criminally investigate or prosecute any alcohol or drug abuse patient.[facility] HospitalIn the event this information is protected by the Federal Confidentiality of Alcohol and Drug Abuse Patient Records regulations: The Federal rules restrict any use of the information to criminally investigate or prosecute any alcohol or drug abuse patient.[facility] HospitalIn the event this information is protected by the Federal Confidentiality of Alcohol and Drug Abuse Patient Records regulations: The Federal rules restrict any use of the information to criminally investigate or prosecute any alcohol or drug abuse patient.[facility] HospitalIn the event this information is protected by the Federal Confidentiality of Alcohol and Drug Abuse Patient Records regulations: The Federal rules restrict any use of the information to criminally investigate or prosecute any alcohol or drug abuse patient.[facility] HospitalIn the event this information is protected by the Federal Confidentiality of Alcohol and Drug Abuse Patient Records regulations: The Federal rules restrict any use of the information to criminally investigate or prosecute any alcohol or drug abuse patient.[facility] HospitalIn the event this information is protected by the Federal Confidentiality of Alcohol and Drug Abuse Patient Records regulations: The Federal rules restrict any use of the information to criminally investigate or prosecute any alcohol or drug abuse patient.[facility] HospitalIn the event this information is protected by the Federal Confidentiality of Alcohol and Drug Abuse Patient Records regulations: The Federal rules restrict any use of the information to criminally investigate or prosecute any alcohol or drug abuse patient.[facility] HospitalIn the event this information is protected by the Federal Confidentiality of Alcohol and Drug Abuse Patient Records regulations: The Federal rules restrict any use of the information to criminally investigate or prosecute any alcohol or drug abuse patient.[facility] HospitalIn the event this information is protected by the Federal Confidentiality of Alcohol and Drug Abuse Patient Records regulations: The Federal rules restrict any use of the information to criminally investigate or prosecute any alcohol or drug abuse patient.[facility] HospitalIn the event this information is protected by the Federal Confidentiality of Alcohol and Drug Abuse Patient Records regulations: The Federal rules restrict any use of the information to criminally investigate or prosecute any alcohol or drug abuse patient.[facility] HospitalIn the event this information is protected by the Federal Confidentiality of Alcohol and Drug Abuse Patient Records regulations: The Federal rules restrict any use of the information to criminally investigate or prosecute any alcohol or drug abuse patient.[facility] HospitalIn the event this information is protected by the Federal Confidentiality of Alcohol and Drug Abuse Patient Records regulations: The Federal rules restrict any use of the information to criminally investigate or prosecute any alcohol or drug abuse patient.[facility] HospitalIn the event this information is protected by the Federal Confidentiality of Alcohol and Drug Abuse Patient Records regulations: The Federal rules restrict any use of the information to criminally investigate or prosecute any alcohol or drug abuse patient.[facility] HospitalIn the event this information is protected by the Federal Confidentiality of Alcohol and Drug Abuse Patient Records regulations: The Federal rules restrict any use of the information to criminally investigate or prosecute any alcohol or drug abuse patient.[facility] HospitalIn the event this information is protected by the Federal Confidentiality of Alcohol and Drug Abuse Patient Records regulations: The Federal rules restrict any use of the information to criminally investigate or prosecute any alcohol or drug abuse patient.[facility] HospitalIn the event this information is protected by the Federal Confidentiality of Alcohol and Drug Abuse Patient Records regulations: The Federal rules restrict any use of the information to criminally investigate or prosecute any alcohol or drug abuse patient.[facility] HospitalIn the event this information is protected by the Federal Confidentiality of Alcohol and Drug Abuse Patient Records regulations: The Federal rules restrict any use of the information to criminally investigate or prosecute any alcohol or drug abuse patient.[facility] HospitalIn the event this information is protected by the Federal Confidentiality of Alcohol and Drug Abuse Patient Records regulations: The Federal rules restrict any use of the information to criminally investigate or prosecute any alcohol or drug abuse patient.[facility] HospitalIn the event this information is protected by the Federal Confidentiality of Alcohol and Drug Abuse Patient Records regulations: The Federal rules restrict any use of the information to criminally investigate or prosecute any alcohol or drug abuse patient.[facility] HospitalIn the event this information is protected by the Federal Confidentiality of Alcohol and Drug Abuse Patient Records regulations: The Federal rules restrict any use of the information to criminally investigate or prosecute any alcohol or drug abuse patient.[facility] HospitalIn the event this information is protected by the Federal Confidentiality of Alcohol and Drug Abuse Patient Records regulations: The Federal rules restrict any use of the information to criminally investigate or prosecute any alcohol or drug abuse patient.[facility] HospitalIn the event this information is protected by the Federal Confidentiality of Alcohol and Drug Abuse Patient Records regulations: The Federal rules restrict any use of the information to criminally investigate or prosecute any alcohol or drug abuse patient.[facility] HospitalIn the event this information is protected by the Federal Confidentiality of Alcohol and Drug Abuse Patient Records regulations: The Federal rules restrict any use of the information to criminally investigate or prosecute any alcohol or drug abuse patient.[facility] HospitalIn the event this information is protected by the Federal Confidentiality of Alcohol and Drug Abuse Patient Records regulations: The Federal rules restrict any use of the information to criminally investigate or prosecute any alcohol or drug abuse patient.[facility] HospitalIn the event this information is protected by the Federal Confidentiality of Alcohol and Drug Abuse Patient Records regulations: The Federal rules restrict any use of the information to criminally investigate or prosecute any alcohol or drug abuse patient.[facility] HospitalIn the event this information is protected by the Federal Confidentiality of Alcohol and Drug Abuse Patient Records regulations: The Federal rules restrict any use of the information to criminally investigate or prosecute any alcohol or drug abuse patient.[facility] HospitalIn the event this information is protected by the Federal Confidentiality of Alcohol and Drug Abuse Patient Records regulations: The Federal rules restrict any use of the information to criminally investigate or prosecute any alcohol or drug abuse patient.[facility] HospitalIn the event this information is protected by the Federal Confidentiality of Alcohol and Drug Abuse Patient Records regulations: The Federal rules restrict any use of the information to criminally investigate or prosecute any alcohol or drug abuse patient.[facility] HospitalIn the event this information is protected by the Federal Confidentiality of Alcohol and Drug Abuse Patient Records regulations: The Federal rules restrict any use of the information to criminally investigate or prosecute any alcohol or drug abuse patient.[facility] HospitalIn the event this information is protected by the Federal Confidentiality of Alcohol and Drug Abuse Patient Records regulations: The Federal rules restrict any use of the information to criminally investigate or prosecute any alcohol or drug abuse patient.[facility] HospitalIn the event this information is protected by the Federal Confidentiality of Alcohol and Drug Abuse Patient Records regulations: The Federal rules restrict any use of the information to criminally investigate or prosecute any alcohol or drug abuse patient.[facility] HospitalIn the event this information is protected by the Federal Confidentiality of Alcohol and Drug Abuse Patient Records regulations: The Federal rules restrict any use of the information to criminally investigate or prosecute any alcohol or drug abuse patient.[facility] HospitalIn the event this information is protected by the Federal Confidentiality of Alcohol and Drug Abuse Patient Records regulations: The Federal rules restrict any use of the information to criminally investigate or prosecute any alcohol or drug abuse patient.[facility] HospitalIn the event this information is protected by the Federal Confidentiality of Alcohol and Drug Abuse Patient Records regulations: The Federal rules restrict any use of the information to criminally investigate or prosecute any alcohol or drug abuse patient.[facility] HospitalIn the event this information is protected by the Federal Confidentiality of Alcohol and Drug Abuse Patient Records regulations: The Federal rules restrict any use of the information to criminally investigate or prosecute any alcohol or drug abuse patient.[facility] HospitalIn the event this information is protected by the Federal Confidentiality of Alcohol and Drug Abuse Patient Records regulations: The Federal rules restrict any use of the information to criminally investigate or prosecute any alcohol or drug abuse patient.[facility] HospitalIn the event this information is protected by the Federal Confidentiality of Alcohol and Drug Abuse Patient Records regulations: The Federal rules restrict any use of the information to criminally investigate or prosecute any alcohol or drug abuse patient.[facility] HospitalIn the event this information is protected by the Federal Confidentiality of Alcohol and Drug Abuse Patient Records regulations: The Federal rules restrict any use of the information to criminally investigate or prosecute any alcohol or drug abuse patient.[facility] HospitalIn the event this information is protected by the Federal Confidentiality of Alcohol and Drug Abuse Patient Records regulations: The Federal rules restrict any use of the information to criminally investigate or prosecute any alcohol or drug abuse patient.[facility] HospitalIn the event this information is protected by the Federal Confidentiality of Alcohol and Drug Abuse Patient Records regulations: The Federal rules restrict any use of the information to criminally investigate or prosecute any alcohol or drug abuse patient.[facility] HospitalIn the event this information is protected by the Federal Confidentiality of Alcohol and Drug Abuse Patient Records regulations: The Federal rules restrict any use of the information to criminally investigate or prosecute any alcohol or drug abuse patient.[facility] HospitalIn the event this information is protected by the Federal Confidentiality of Alcohol and Drug Abuse Patient Records regulations: The Federal rules restrict any use of the information to criminally investigate or prosecute any alcohol or drug abuse patient.[facility] HospitalIn the event this information is protected by the Federal Confidentiality of Alcohol and Drug Abuse Patient Records regulations: The Federal rules restrict any use of the information to criminally investigate or prosecute any alcohol or drug abuse patient.[facility] HospitalIn the event this information is protected by the Federal Confidentiality of Alcohol and Drug Abuse Patient Records regulations: The Federal rules restrict any use of the information to criminally investigate or prosecute any alcohol or drug abuse patient.[facility] HospitalIn the event this information is protected by the Federal Confidentiality of Alcohol and Drug Abuse Patient Records regulations: The Federal rules restrict any use of the information to criminally investigate or prosecute any alcohol or drug abuse patient.[facility] HospitalIn the event this information is protected by the Federal Confidentiality of Alcohol and Drug Abuse Patient Records regulations: The Federal rules restrict any use of the information to criminally investigate or prosecute any alcohol or drug abuse patient.[facility] HospitalIn the event this information is protected by the Federal Confidentiality of Alcohol and Drug Abuse Patient Records regulations: The Federal rules restrict any use of the information to criminally investigate or prosecute any alcohol or drug abuse patient.[facility] HospitalIn the event this information is protected by the Federal Confidentiality of Alcohol and Drug Abuse Patient Records regulations: The Federal rules restrict any use of the information to criminally investigate or prosecute any alcohol or drug abuse patient.[facility] HospitalIn the event this information is protected by the Federal Confidentiality of Alcohol and Drug Abuse Patient Records regulations: The Federal rules restrict any use of the information to criminally investigate or prosecute any alcohol or drug abuse patient.[facility] HospitalIn the event this information is protected by the Federal Confidentiality of Alcohol and Drug Abuse Patient Records regulations: The Federal rules restrict any use of the information to criminally investigate or prosecute any alcohol or drug abuse patient.[facility] HospitalIn the event this information is protected by the Federal Confidentiality of Alcohol and Drug Abuse Patient Records regulations: The Federal rules restrict any use of the information to criminally investigate or prosecute any alcohol or drug abuse patient.[facility] HospitalIn the event this information is protected by the Federal Confidentiality of Alcohol and Drug Abuse Patient Records regulations: The Federal rules restrict any use of the information to criminally investigate or prosecute any alcohol or drug abuse patient.[facility] HospitalIn the event this information is protected by the Federal Confidentiality of Alcohol and Drug Abuse Patient Records regulations: The Federal rules restrict any use of the information to criminally investigate or prosecute any alcohol or drug abuse patient.[facility] HospitalIn the event this information is protected by the Federal Confidentiality of Alcohol and Drug Abuse Patient Records regulations: The Federal rules restrict any use of the information to criminally investigate or prosecute any alcohol or drug abuse patient.[facility] HospitalIn the event this information is protected by the Federal Confidentiality of Alcohol and Drug Abuse Patient Records regulations: The Federal rules restrict any use of the information to criminally investigate or prosecute any alcohol or drug abuse patient.[facility] HospitalIn the event this information is protected by the Federal Confidentiality of Alcohol and Drug Abuse Patient Records regulations: The Federal rules restrict any use of the information to criminally investigate or prosecute any alcohol or drug abuse patient.[facility] HospitalIn the event this information is protected by the Federal Confidentiality of Alcohol and Drug Abuse Patient Records regulations: The Federal rules restrict any use of the information to criminally investigate or prosecute any alcohol or drug abuse patient.[facility] HospitalIn the event this information is protected by the Federal Confidentiality of Alcohol and Drug Abuse Patient Records regulations: The Federal rules restrict any use of the information to criminally investigate or prosecute any alcohol or drug abuse patient.[facility] HospitalIn the event this information is protected by the Federal Confidentiality of Alcohol and Drug Abuse Patient Records regulations: The Federal rules restrict any use of the information to criminally investigate or prosecute any alcohol or drug abuse patient.[facility] HospitalIn the event this information is protected by the Federal Confidentiality of Alcohol and Drug Abuse Patient Records regulations: The Federal rules restrict any use of the information to criminally investigate or prosecute any alcohol or drug abuse patient.[facility] HospitalIn the event this information is protected by the Federal Confidentiality of Alcohol and Drug Abuse Patient Records regulations: The Federal rules restrict any use of the information to criminally investigate or prosecute any alcohol or drug abuse patient.[facility] HospitalIn the event this information is protected by the Federal Confidentiality of Alcohol and Drug Abuse Patient Records regulations: The Federal rules restrict any use of the information to criminally investigate or prosecute any alcohol or drug abuse patient.[facility] HospitalIn the event this information is protected by the Federal Confidentiality of Alcohol and Drug Abuse Patient Records regulations: The Federal rules restrict any use of the information to criminally investigate or prosecute any alcohol or drug abuse patient.[facility] HospitalIn the event this information is protected by the Federal Confidentiality of Alcohol and Drug Abuse Patient Records regulations: The Federal rules restrict any use of the information to criminally investigate or prosecute any alcohol or drug abuse patient.[facility] HospitalIn the event this information is protected by the Federal Confidentiality of Alcohol and Drug Abuse Patient Records regulations: The Federal rules restrict any use of the information to criminally investigate or prosecute any alcohol or drug abuse patient.[facility] HospitalIn the event this information is protected by the Federal Confidentiality of Alcohol and Drug Abuse Patient Records regulations: The Federal rules restrict any use of the information to criminally investigate or prosecute any alcohol or drug abuse patient.[facility] HospitalIn the event this information is protected by the Federal Confidentiality of Alcohol and Drug Abuse Patient Records regulations: The Federal rules restrict any use of the information to criminally investigate or prosecute any alcohol or drug abuse patient.[facility] HospitalIn the event this information is protected by the Federal Confidentiality of Alcohol and Drug Abuse Patient Records regulations: The Federal rules restrict any use of the information to criminally investigate or prosecute any alcohol or drug abuse patient.[facility] HospitalIn the event this information is protected by the Federal Confidentiality of Alcohol and Drug Abuse Patient Records regulations: The Federal rules restrict any use of the information to criminally investigate or prosecute any alcohol or drug abuse patient.[facility] HospitalIn the event this information is protected by the Federal Confidentiality of Alcohol and Drug Abuse Patient Records regulations: The Federal rules restrict any use of the information to criminally investigate or prosecute any alcohol or drug abuse patient.[facility] HospitalIn the event this information is protected by the Federal Confidentiality of Alcohol and Drug Abuse Patient Records regulations: The Federal rules restrict any use of the information to criminally investigate or prosecute any alcohol or drug abuse patient.[facility] HospitalIn the event this information is protected by the Federal Confidentiality of Alcohol and Drug Abuse Patient Records regulations: The Federal rules restrict any use of the information to criminally investigate or prosecute any alcohol or drug abuse patient.[facility] HospitalIn the event this information is protected by the Federal Confidentiality of Alcohol and Drug Abuse Patient Records regulations: The Federal rules restrict any use of the information to criminally investigate or prosecute any alcohol or drug abuse patient.[facility] HospitalIn the event this information is protected by the Federal Confidentiality of Alcohol and Drug Abuse Patient Records regulations: The Federal rules restrict any use of the information to criminally investigate or prosecute any alcohol or drug abuse patient.[facility]In the event this information is protected by the Federal Confidentiality of Alcohol and Drug Abuse Patient Records regulations: The Federal rules restrict any use of the information to criminally investigate or prosecute any alcohol or drug abuse patient.[facility] HospitalIn the event this information is protected by the Federal Confidentiality of Alcohol and Drug Abuse Patient Records regulations: The Federal rules restrict any use of the information to criminally investigate or prosecute any alcohol or drug abuse patient.[facility] HospitalIn the event this information is protected by the Federal Confidentiality of Alcohol and Drug Abuse Patient Records regulations: The Federal rules restrict any use of the information to criminally investigate or prosecute any alcohol or drug abuse patient.[facility] HospitalIn the event this information is protected by the Federal Confidentiality of Alcohol and Drug Abuse Patient Records regulations: The Federal rules restrict any use of the information to criminally investigate or prosecute any alcohol or drug abuse patient.[facility] HospitalIn the event this information is protected by the Federal Confidentiality of Alcohol and Drug Abuse Patient Records regulations: The Federal rules restrict any use of the information to criminally investigate or prosecute any alcohol or drug abuse patient.[facility] HospitalIn the event this information is protected by the Federal Confidentiality of Alcohol and Drug Abuse Patient Records regulations: The Federal rules restrict any use of the information to criminally investigate or prosecute any alcohol or drug abuse patient.[facility] Reason for Visit (unrecogniz ed section and content) Reason Comments Shelter Discharge Reason Onset Date Comments Refill Request 10/15/2021 Reason Comments Supplies Needed Reason Comments DME company and supplies. Reason Comments Orders Reason Comments 6 Month Exam Reason Onset Date Comments Refill Request 11/20/2021 Reason Comments Results Reason Comments Orders Question Reason Comments Results Reason Comments repeat lab results Reason Comments Patient Update Reason Comments Diabetic Foot Care Established Patient Follow-Up Reason Onset Date Comments Refill Request 02/12/2022 Reason Onset Date Comments Refill Request 05/05/2022 Reason Comments Leg Cramps Patient has been hav ing legs cramps and swelling. Reason Comments Medication Question Reason Comments Social Work Services Reason Comments Fax for Incontinence Supplies Reason Comments Recheck Patient is here for follow up on legs cramps Reason Comments Reason Comments Established Patient Nail Check Reason Comments ER F/U [facility] Reason Comments Consult Neurology Reason Comments Rash Reason Onset Date Comments Refill Request 10/21/2022 Reason Comments Recheck Reason Onset Date Comments Refill Request 11/18/2022 Reason Comments Stye / Hordeolum Evaluation Reason Comments Established Patient Diabetic Foot Care Pain Reason Onset Date Comments Refill Request 02/01/2023 Reason Comments Outside Imaging Reason Comments Recheck Reason Comments Pulmonology CT Scan Reason Comments New Patient Screening for colon cancer Specialty Diagnoses / Procedures Referred By Contac t Referred To Contact General Surgery Diagnoses Screening for colon cancer Procedures CONSULT TO GENERAL SURGERY OFFICE/OUTPATIENT NEW HIGH MDM 60-74 MINUTES Meagan Yusuf PA-C [address] [place] [address] Referral ID Status Reason Start Date Expiration Date V isits Requested Visits Authorized [id number] Closed PCP Requested Referral 02/28/2023 02/28/2024 1 1 Reason Comments ext document Reason Onset Date Comments Refill Request 04/01/2023 Reason Onset Date Comments Refill Request 04/29/2023 Reason Comments Patient Question Reason Onset Date Comments Refill Request 09/15/2023 Reason Comments Pain (Shoulder Pain) bilateral Reason Comments bilateral shoulder pain REF: Jami Yusuf Reason Comments Follow Up Reason Comments Ext / Labs, D/C report & Op report Reason Comments PT Eval Specialty Diagnoses / Procedures Referred By Contac t Referred To Contact [facility] Diagnoses Rotator cuff disorder, left Procedures CONSULT TO PHYSICAL THERAPY PHYSICAL THERAPY EVALUATION HIGH COMPLEX 45 MINS Jarod Godwin V, DO [address] [place] [address] [facility] [address] [place] [address] Referral ID Status Reason Start Date Expiration Date V isits Requested Visits Authorized [id number] Closed Auto-Generate d Referral 07/18/2023 07/17/2024 1 1 Reason Onset Date Comments Refill Request 01/04/2024 Reason Comments Orders HomeCare Delivered Reason Comments re-fax form Home Care Delivered Reason Comments CMN for incontinent supplies Reason Comments Medicare Wellness Exam Physical Reason Comments Outside Derm Reason Onset Date Comments Refill Request 03/29/2024 Reason Onset Date Comments Refill Request 04/27/2024 Reason Onset Date Comments Refill Request 06/20/2024 Reason Comments ER Discharge Summary H&P Reason Comments Outside Neurology Reason Comments ER F/U [facility] 11/12/2024 Reason Comments ER F/U [facility] ER Reason Comments Orders for incontinence sup plies Reason Comments Hospital Follow Up Reason Onset Date Comments Refill Request 01/07/2025 Reason Comments Received Outside Medical Records [facility] Adm ission records Reason Comments Forms CMN Reason Comments Hospital F/U Reason Onset Date Comments Results 01/21/2025 Reason Onset Date Comments Refill Request 01/21/2025 Reason Onset Date Comments Refill Request 2025 Reason Onset Date Comments Refill Request 03/01/2025 Reason Comments Diabetes Specialty Diagnoses / Procedures Referred By Contac t Referred To Contact [facility] Diagnoses Diabetic eye exam (HCC) Procedures OFFICE/OUTPATIENT [facility] 60 MINUTES Homer Bradford MD [address] [place] [address] Phone: tel: fax: [facility] [address] [place] [address] Referral ID Status Reason Start Date Expiration Date V isits Requested Visits Authorized [id number] Closed PCP Requested Referral 12/18/2024 12/18/2025 1 1 Reason Comments Letter Reason Onset Date Comments Refill Request 03/26/2025 Care Teams (unrecognized sec tion and content) Bottom Man Relationship Specialty Start Date End Date Homer Bradford MD [address] [place] [address] PCP - General Family Practice 01/14/14 Bottom Man Relationship Specialty Start Date End Date Homer Bradford MD [employer] [place] [address] PCP - General Family Practice 01/14/14 Bottom Man Relationship Specialty Start Date End Date Homer Bradford MD [employer] [place] [address] PCP - General Family Practice 01/14/14 Bottom Man Relationship Specialty Start Date End Date Homer Bradford MD [address] [place] [address] PCP - General Family Practice 01/14/14 Bottom Man Relationship Specialty Start Date End Date Homer Bradford MD [address] [place] [address] PCP - General Family Practice 01/14/14 Bottom Man Relationship Specialty Start Date End Date Homer Bradford MD [employer] [place] [address] PCP - General Family Practice 01/14/14 Bottom Man Relationship Specialty Start Date End Date Homer Bradford MD [address] [place] [address], [place] [address] PCP - General Family Practice 01/14/14 Bottom Man Relationship Specialty Start Date End Date Homer Bradford MD [address] [place] [address], [place] [address] PCP - General Family Practice 01/14/14 Bottom Man Relationship Specialty Start Date End Date Homer Bradford MD [address] [place] [address], [place] [address] PCP - General Family Practice 01/14/14 Bottom Man Relationship Specialty Start Date End Date Homer Bradford MD [address] [place] [address], [place] [address] PCP - General Family Practice 01/14/14 Bottom Man Relationship Specialty Start Date End Date Homer Bradford MD [address] [place] [address], [place] [address] PCP - General Family Practice 01/14/14 Bottom Man Relationship Specialty Start Date End Date Homer Bradford MD [address] [place] [address], [place] [address] PCP - General Family Practice 01/14/14 Bottom Man Relationship Specialty Start Date End Date Homer Bradford MD [address] [place] [address], [place] [address] PCP - General Family Practice 01/14/14 Bottom Man Relationship Specialty Start Date End Date Homer Bradford MD [address] [place] [address], [place] [address] PCP - General Family Practice 01/14/14 Bottom Man Relationship Specialty Start Date End Date Homer Bradford MD [address] [place] [address] PCP - General Family Medicine 01/14/14 Bottom Man Relationship Specialty Start Date End Date Homer rBadford MD [address] [facility] [place] [place] [address] PCP - General Family Medicine 01/14/14 Bottom Man Relationship Specialty Start Date End Date Homer Bradford MD [address] [place] [address] PCP - General Family Medicine 01/14/14 Bottom Man Relationship Specialty Start Date End Date Homer Bradford MD [employer] [place] [address] PCP - General Family Medicine 01/14/14 Bottom Man Relationship Specialty Start Date End Date Homer Bradford MD [address] [place] [address] PCP - General Family Medicine 01/14/14 Bottom Man Relationship Specialty Start Date End Date Homer Bradford MD [employer] [place] [address] PCP - General Family Medicine 01/14/14 Bottom Man Relationship Specialty Start Date End Date Homer Bradford MD [address] [facility] [place] [place] [address] PCP - General Family Medicine 01/14/14 Bottom Man Relationship Specialty Start Date End Date Homer Bradford MD [address] [facility] [place] [address] PCP - General Family Medicine 01/14/14 Team Status: Active Member Role Status Dates Dr. Homer Bradford MD Family Provider Active Dr. Homer Bradford MD Primary Care Provider Active Team Status: Active Member Role Status Dates Broderick Minor Primary Care Provider, Family Provide r Active Team Status: Inactive Member Role Status Dates Dr. Homer Bradford MD Primary Care Provider Active Dr. Ortiz Pinto MD Emergency Provider Active Bottom Man Relationship Specialty Start Date End Date Homer Bradford MD [address] [place] [address] PCP - General Family Medicine 01/14/14 Bottom Man Relationship Specialty Start Date End Date Homer Bradford MD [employer] [place] [address] PCP - General Family Medicine 01/14/14 Bottom Man Relationship Specialty Start Date End Date Homer Bradford MD [address] [place] [address] [place] [address] PCP - General Family Medicine 01/14/14 Bottom Man Relationship Specialty Start Date End Date Homer Bradford MD [address] [place] [address], [place] [address] PCP - General Family Medicine 01/14/14 Bottom Man Relationship Specialty Start Date End Date Homer Bradford MD [address] [place] [address], [place] [address] PCP - General Family Medicine 01/14/14 Bottom Man Relationship Specialty Start Date End Date Homer Bradford MD [address] [place] [address], [place] [address] PCP - General Family Medicine 01/14/14 Bottom Man Relationship Specialty Start Date End Date Homer Bradford MD [address] [place] [address], [place] [address] PCP - General Family Medicine 01/14/14 Bottom Man Relationship Specialty Start Date End Date Homer Bradford MD [address] [place] [address], [place] [address] PCP - General Family Medicine 01/14/14 Bottom Man Relationship Specialty Start Date End Date Homer Bradford MD [address] [place] [address] PCP - General Family Medicine 01/14/14 Bottom Man Relationship Specialty Start Date End Date Homer Bradford MD [address] [place] [address] PCP - General Family Medicine 01/14/14 Team Status: Inactive Member Role Status Dates Dr. Homer Bradford MD Primary Care Provider Active Taylor Julian CATEGORY DEVELOPMENT MANAGER, CATEGORY DEVELOPMENT MANAGER-C Attending Provider, Refervaishali g Provider Active Team Status: Inactive Member Role Status Dates Dr. Homer Bradford MD Primary Care Provider Active Dr. Frank Monroe MD Attending Provider, Emergency Provider Active Bottom Man Relationship Specialty Start Date End Date Homer Bradford MD [address] [place] [address] PCP - General Family Medicine 01/14/14 Bottom Man Relationship Specialty Start Date End Date Homer Bradford MD [address] [place] [address] PCP - General Family Medicine 01/14/14 Bottom Man Relationship Specialty Start Date End Date Homer Bradford MD [address] [place] [address] PCP - General Family Medicine 01/14/14 Team Status: Inactive Member Role Status Dates Dr. Homer Bradford MD Primary Care Provider, Referri ng Provider Active Taylor Julian CATEGORY DEVELOPMENT MANAGER, CATEGORY DEVELOPMENT MANAGER-C Attending Provider Active Bottom Man Relationship Specialty Start Date End Date Homer Bradford MD [address] [place] [address] PCP - General Family Medicine 01/14/14 Bottom Man Relationship Specialty Start Date End Date Homer Bradford MD [address] [place] [address] PCP - General Family Medicine 01/14/14 Bottom Man Relationship Specialty Start Date End Date Homer Bradford MD [address] [place] [address] PCP - General Family Medicine 01/14/14 Bottom Man Relationship Specialty Start Date End Date Homer Bradford MD [address] [place] [address] PCP - General Family Medicine 01/14/14 Bottom Man Relationship Specialty Start Date End Date Homer Bradford MD [address] [place] [address] PCP - General Family Medicine 01/14/14 Bottom Man Relationship Specialty Start Date End Date Homer Bradford MD [address] [place] [address] PCP - General Family Medicine 01/14/14 Bottom Man Relationship Specialty Start Date End Date Homer Bradford MD [address] [place] [address] PCP - General Family Medicine 01/14/14 Bottom Man Relationship Specialty Start Date End Date Homer Bradford MD [address] [place] [address] PCP - General Family Medicine 01/14/14 Bottom Man Relationship Specialty Start Date End Date Homer Bradford MD [address] [place] [address] PCP - General Family Medicine 01/14/14 Bottom Man Relationship Specialty Start Date End Date Homer Bradford MD [address] [place] [address] PCP - General Family Medicine 01/14/14 Bottom Man Relationship Specialty Start Date End Date Homer Bradford MD [address] [place] [address] PCP - General Family Medicine 01/14/14 Team Status: Inactive Member Role Status Dates Dr. Homer Bradford MD Primary Care Provider Active Dr. Jennifer Alba MD Attending Provider, Brie johnson Active Bottom Man Relationship Specialty Start Date End Date Homer Bradford MD [address] [place] [address] PCP - General Family Medicine 01/14/14 Bottom Man Relationship Specialty Start Date End Date Homer Bradford MD [address] [place] [address] PCP - General Family Medicine 01/14/14 Bottom Man Relationship Specialty Start Date End Date Homer Bradford MD [address] [place] [address] PCP - General Family Medicine 01/14/14 Bottom Man Relationship Specialty Start Date End Date Homer Bradford MD [address] [place] [address] PCP - General Family Medicine 01/14/14 Mone Dupont APRN.WAFFLE MACHINE OPERATOR [address] [place] [address] [employer] [facility] 06/23/24 Meagan Yusuf PA-C [address] [facility] [place] [id number] [facility] 06/23/24 Team Status: Active Member Role Status Dates Dr. Homer Bradford MD Primary Care Provider Active Team Status: Active Member Role Status Dates Broderick Minor Primary Care Provider Active St art: January 07, 2012 Broderick Suzaopkins Family Provider Active Start: 2011 Team Status: Inactive Member Role Status Dates Dr. Homer Bradford MD Primary Care Provider Active Start: September 12, 2024 End: September 21, 2024 Randy Cabrales MD Emergency Provider Active Star t: September 12, 2024 End: September 21, 2024 Dr. Wilfredo Denton DO Admit Provider Active Star t: September 12, 2024 End: September 21, 2024 Dr. Wilfredo Denton DO Other Provider Active Star t: September 12, 2024 End: September 21, 2024 Jonathan Butcher MD Other Provider Active Start: [facility] 2024 End: September 21, 2024 Dr. Kristen Simons MD Other Provider Active Start: September 12, 2024 End: September 21, 2024 Leyda Celis MD Other Provider Active Start : September 12, 2024 End: September 21, 2024 Dr. Hodan Chapa DO Other Provider Active St art: September 12, 2024 End: September 21, 2024 Dr. Leah Hartman MD Other Provider Active Start: September 12, 2024 End: September 21, 2024 Dr. Long Zamarripa MD Other Provider Active Sta rt: September 12, 2024 End: September 21, 2024 Dr. Faustina Bach MD Other Provider Active Start : September 12, 2024 End: September 21, 2024 Dr. Tomás Willis MD Other Provider Active Start: September 12, 2024 End: September 21, 2024 Dr. Stuart Balbuena MD Other Provider Active Start : September 12, 2024 End: September 21, 2024 Dr. Kamar Redmond MD Other Provider Active Sta rt: September 12, 2024 End: September 21, 2024 Chioma Hsieh MD Other Provider Active Start : September 12, 2024 End: September 21, 2024 Dr. Dennys Ryan MD Other Provider Active St art: September 12, 2024 End: September 21, 2024 Dr. Lori Jacobs MD Other Provider Active Start : September 12, 2024 End: September 21, 2024 Dr. Elisabeth Yung MD Other Provider Active Sta rt: September 12, 2024 End: September 21, 2024 Dr. Jovanny García MD Other Provider Active Start: September 12, 2024 End: September 21, 2024 Dr. Frank Yusuf MD Other Provider Active St art: September 12, 2024 End: September 21, 2024 Dr. Ariella Morrison MD Other Provider Active Star t: September 12, 2024 End: September 21, 2024 Dr. Sandor Zaldivar MD Other Provider Active St art: September 12, 2024 End: September 21, 2024 Dr. Flores Pruitt MD Other Provider Active Start: September 12, 2024 End: September 21, 2024 Martha Irene MD Other Provider Active Start: September 12, 2024 End: September 21, 2024 Dr. Marco Jones MD Attending Provider Active Start: September 12, 2024 End: September 21, 2024 Dr. Guevara Collins MD Other Provider Active Start: September 12, 2024 End: September 21, 2024 Team Status: Active Member Role Status Dates Dr. Homer Bradford MD Primary Care Provider Active Start: September 12, 2024 Randy Cabrales MD Emergency Provider Active Star t: September 12, 2024 Dr. Wilfredo Denton DO Attending Provider Active Start: September 12, 2024 Team Status: Active Member Role Status Dates Dr. Homer Bradford MD Primary Care Provider Active Start: September 13, 2024 Dr. Genoveva Garcia MD Attending Provider Activ e Start: September 13, 2024 Team Status: Active Member Role Status Dates Dr. Homer Bradford MD Primary Care Provider Active Start: September 13, 2024 Randy Cabrales MD Emergency Provider Active Star t: September 13, 2024 Dr. Wilfredo Denton DO Admit Provider Active Star t: September 13, 2024 Dr. Wilfredo Denton DO Other Provider Active Star t: September 13, 2024 Jonathan Butcher MD Other Provider Active Start: [facility] 2024 Dr. Kristen Simons MD Other Provider Active Start: September 13, 2024 Leyda Celis MD Other Provider Active Start : September 13, 2024 Dr. Hodan Chapa DO Other Provider Active St art: September 13, 2024 Dr. Leah Hartman MD Other Provider Active Start: September 13, 2024 Dr. Long Zamarripa MD Other Provider Active Sta rt: September 13, 2024 Dr. Faustina Bach MD Other Provider Active Start : September 13, 2024 Dr. Tomás Willis MD Other Provider Active Start: September 13, 2024 Dr. Stuart Balbuena MD Other Provider Active Start : September 13, 2024 Dr. Kamar Redmond MD Other Provider Active Sta rt: September 13, 2024 Chioma Hsieh MD Other Provider Active Start : September 13, 2024 Dr. Dennys Ryan MD Other Provider Active St art: September 13, 2024 Dr. Lori Jacobs MD Other Provider Active Start : September 13, 2024 Dr. Elisabeth Yung MD Other Provider Active Sta rt: September 13, 2024 Dr. Jovanny García MD Other Provider Active Start: September 13, 2024 Dr. Frank Yusuf MD Other Provider Active St art: September 13, 2024 Dr. Ariella Morrison MD Other Provider Active Star t: September 13, 2024 Dr. Sandor Zaldivar MD Other Provider Active St art: September 13, 2024 Dr. Flores Pruitt MD Other Provider Active Start: September 13, 2024 Martha Irene MD Other Provider Active Start: September 13, 2024 Dr. Guevara Collins MD Attending Provider Active Start: September 13, 2024 Dr. Guevara Collins MD Other Provider Active Start: September 13, 2024 Team Status: Active Member Role Status Dates Dr. Homer Bradford MD Primary Care Provider Active Start: September 14, 2024 Randy Cabrales MD Emergency Provider Active Star t: September 14, 2024 Dr. Wilfredo Denton DO Admit Provider Active Star t: September 14, 2024 Dr. Wilfredo Denton DO Other Provider Active Star t: September 14, 2024 Jonathan Butcher MD Other Provider Active Start: [facility] 2024 Dr. Kristen Simons MD Other Provider Active Start: September 14, 2024 Leyda Celis MD Other Provider Active Start : September 14, 2024 Dr. Hodan Chapa DO Other Provider Active St art: September 14, 2024 Dr. Leah Hartman MD Other Provider Active Start: September 14, 2024 Dr. Long Zamarripa MD Other Provider Active Sta rt: September 14, 2024 Dr. Faustina Bach MD Other Provider Active Start : September 14, 2024 Dr. Tomás Willis MD Other Provider Active Start: September 14, 2024 Dr. Stuart Balbuena MD Other Provider Active Start : September 14, 2024 Dr. Kamar Redmond MD Other Provider Active Sta rt: September 14, 2024 Chioma Hsieh MD Other Provider Active Start : September 14, 2024 Dr. Dennys Ryan MD Other Provider Active St art: September 14, 2024 Dr. Lori Jacobs MD Other Provider Active Start : September 14, 2024 Dr. Elisabeth Yung MD Other Provider Active Sta rt: September 14, 2024 Dr. Jovanny García MD Other Provider Active Start: September 14, 2024 Dr. Frank Yusuf MD Other Provider Active St art: September 14, 2024 Dr. Ariella Morrison MD Other Provider Active Star t: September 14, 2024 Dr. Sandor Zaldivar MD Other Provider Active St art: September 14, 2024 Dr. Flores Pruitt MD Other Provider Active Start: September 14, 2024 Martha Irene MD Other Provider Active Start: September 14, 2024 Dr. Guevara Collins MD Attending Provider Active Start: September 14, 2024 Dr. Guevara Collins MD Other Provider Active Start: September 14, 2024 Team Status: Active Member Role Status Dates Dr. Homer Bradford MD Primary Care Provider Active Start: September 15, 2024 Randy Cabrales MD Emergency Provider Active Star t: September 15, 2024 Dr. Wilfredo Denton DO Admit Provider Active Star t: September 15, 2024 Dr. Wilfredo Denton DO Other Provider Active Star t: September 15, 2024 Jonathan Butcher MD Other Provider Active Start: [facility] 2024 Dr. Kristen Simons MD Other Provider Active Start: September 15, 2024 Leyda Celis MD Other Provider Active Start : September 15, 2024 Dr. Hodan Chapa DO Other Provider Active St art: September 15, 2024 Dr. Leah Hartman MD Other Provider Active Start: September 15, 2024 Dr. Long Zamarripa MD Other Provider Active Sta rt: September 15, 2024 Dr. Faustina Bach MD Other Provider Active Start : September 15, 2024 Dr. Tomás Willis MD Other Provider Active Start: September 15, 2024 Dr. Stuart Balbuena MD Other Provider Active Start : September 15, 2024 Dr. Kamar Redmond MD Other Provider Active Sta rt: September 15, 2024 Chioma Hsieh MD Other Provider Active Start : September 15, 2024 Dr. Dennys Ryan MD Other Provider Active St art: September 15, 2024 Dr. Lori Jacobs MD Other Provider Active Start : September 15, 2024 Dr. Elisabeth Yung MD Other Provider Active Sta rt: September 15, 2024 Dr. Jovanny García MD Other Provider Active Start: September 15, 2024 Dr. Frank Yusuf MD Other Provider Active St art: September 15, 2024 Dr. Ariella Morrison MD Other Provider Active Star t: September 15, 2024 Dr. Sandor Zaldivar MD Other Provider Active St art: September 15, 2024 Dr. Flores Pruitt MD Other Provider Active Start: September 15, 2024 Martha Irene MD Other Provider Active Start: September 15, 2024 Dr. Guevara Collins MD Attending Provider Active Start: September 15, 2024 Dr. Guevara Collins MD Other Provider Active Start: September 15, 2024 Team Status: Active Member Role Status Dates Dr. Homer Bradford MD Primary Care Provider Active Start: September 16, 2024 Randy Cabrales MD Emergency Provider Active Star t: September 16, 2024 Dr. Wilfredo Denton DO Admit Provider Active Star t: September 16, 2024 Dr. Wilfredo Denton DO Other Provider Active Star t: September 16, 2024 Jonathan Butcher MD Other Provider Active Start: [facility] 2024 Dr. Kristen Simons MD Other Provider Active Start: September 16, 2024 Leyda Celis MD Other Provider Active Start : September 16, 2024 Dr. Hodan Chapa DO Other Provider Active St art: September 16, 2024 Dr. Leah Hartman MD Other Provider Active Start: September 16, 2024 Dr. Long Zamarripa MD Other Provider Active Sta rt: September 16, 2024 Dr. Faustina Bach MD Other Provider Active Start : September 16, 2024 Dr. Tomás Willis MD Other Provider Active Start: September 16, 2024 Dr. Stuart Balbuena MD Other Provider Active Start : September 16, 2024 Dr. Kamar Redmond MD Other Provider Active Sta rt: September 16, 2024 Chioma Hsieh MD Other Provider Active Start : September 16, 2024 Dr. Dennys Ryan MD Other Provider Active St art: September 16, 2024 Dr. Lori Jacobs MD Other Provider Active Start : September 16, 2024 Dr. Elisabeth Yung MD Other Provider Active Sta rt: September 16, 2024 Dr. Jovanny García MD Other Provider Active Start: September 16, 2024 Dr. Frank Yusuf MD Other Provider Active St art: September 16, 2024 Dr. Ariella Morrison MD Other Provider Active Star t: September 16, 2024 Dr. Sandor Zaldivar MD Other Provider Active St art: September 16, 2024 Dr. Flores Pruitt MD Other Provider Active Start: September 16, 2024 Martha Irene MD Other Provider Active Start: September 16, 2024 Dr. Guevara Collins MD Attending Provider Active Start: September 16, 2024 Dr. Guevara Collins MD Other Provider Active Start: September 16, 2024 Team Status: Active Member Role Status Dates Dr. Homer Bradford MD Primary Care Provider Active Start: September 17, 2024 Randy Cabrales MD Emergency Provider Active Star t: September 17, 2024 Dr. Wilfredo Denton DO Admit Provider Active Star t: September 17, 2024 Dr. Wilfredo Denton DO Other Provider Active Star t: September 17, 2024 Jonathan Butcher MD Other Provider Active Start: [facility] 2024 Dr. Kristen Simons MD Other Provider Active Start: September 17, 2024 Leyda Celis MD Other Provider Active Start : September 17, 2024 Dr. Hodan Chapa DO Other Provider Active St art: September 17, 2024 Dr. Leah Hartman MD Other Provider Active Start: September 17, 2024 Dr. Long Zamarripa MD Other Provider Active Sta rt: September 17, 2024 Dr. Faustina Bach MD Other Provider Active Start : September 17, 2024 Dr. Tomsá Willis MD Other Provider Active Start: September 17, 2024 Dr. Stuart Balbuena MD Other Provider Active Start : September 17, 2024 Dr. Kamar Redmond MD Other Provider Active Sta rt: September 17, 2024 Chioma Hsieh MD Other Provider Active Start : September 17, 2024 Dr. Dennys Ryan MD Other Provider Active St art: September 17, 2024 Dr. Lori Jacobs MD Other Provider Active Start : September 17, 2024 Dr. Elisabeth Yung MD Other Provider Active Sta rt: September 17, 2024 Dr. Jovanny García MD Other Provider Active Start: September 17, 2024 Dr. Frank Yusuf MD Other Provider Active St art: September 17, 2024 Dr. Ariella Morrison MD Other Provider Active Star t: September 17, 2024 Dr. Sandor Zaldivar MD Other Provider Active St art: September 17, 2024 Dr. Flores Pruitt MD Other Provider Active Start: September 17, 2024 Martha Irene MD Other Provider Active Start: September 17, 2024 Dr. Guevara Collins MD Attending Provider Active Start: September 17, 2024 Dr. Guevara Collins MD Other Provider Active Start: September 17, 2024 Team Status: Active Member Role Status Dates Dr. Homer Bradford MD Primary Care Provider Active Start: September 18, 2024 Randy Cabrales MD Emergency Provider Active Star t: September 18, 2024 Dr. Wilfredo Denton DO Admit Provider Active Star t: September 18, 2024 Dr. Wilfredo Denton DO Other Provider Active Star t: September 18, 2024 Jonathan Butcher MD Other Provider Active Start: [facility] [address]. Kristen Simons MD Other Provider Active Start: September 18, 2024 Leyda Celis MD Other Provider Active Start : September 18, 2024 Dr. Hodan Chapa DO Other Provider Active St art: September 18, 2024 Dr. Leah Hartman MD Other Provider Active Start: September 18, 2024 Dr. Long Zamarripa MD Other Provider Active Sta rt: September 18, 2024 Dr. Faustina Bach MD Other Provider Active Start : September 18, 2024 Dr. Tomás Willis MD Other Provider Active Start: September 18, 2024 Dr. Stuart aBlbuena MD Other Provider Active Start : September 18, 2024 Dr. Kamar Redmond MD Other Provider Active Sta rt: September 18, 2024 Chioma Hsieh MD Other Provider Active Start : September 18, 2024 Dr. Dennys Ryan MD Other Provider Active St art: September 18, 2024 Dr. Lori Jacobs MD Other Provider Active Start : September 18, 2024 Dr. Elisabeth Yung MD Other Provider Active Sta rt: September 18, 2024 Dr. Jovanny García MD Other Provider Active Start: September 18, 2024 Dr. Frank Yusuf MD Other Provider Active St art: September 18, 2024 Dr. Ariella Morrison MD Other Provider Active Star t: September 18, 2024 Dr. Sandor Zaldivar MD Other Provider Active St art: September 18, 2024 Dr. Flores Pruitt MD Other Provider Active Start: September 18, 2024 Martha Irene MD Other Provider Active Start: September 18, 2024 Dr. Guevara Collins MD Attending Provider Active Start: September 18, 2024 Dr. Guevara Collins MD Other Provider Active Start: September 18, 2024 Team Status: Active Member Role Status Dates Dr. Homer Bradford MD Primary Care Provider Active Start: September 19, 2024 Randy Cabrales MD Emergency Provider Active Star t: September 19, 2024 Dr. Wilfredo Denton DO Admit Provider Active Star t: September 19, 2024 Dr. Wilfredo Denton DO Other Provider Active Star t: September 19, 2024 Jonathan Butcher MD Other Provider Active Start: [facility] [address]. Kristen Simons MD Other Provider Active Start: September 19, 2024 Leyda Celis MD Other Provider Active Start : September 19, 2024 Dr. Hodan Chapa DO Other Provider Active St art: September 19, 2024 Dr. Leah Hartman MD Other Provider Active Start: September 19, 2024 Dr. Long Zamarripa MD Other Provider Active Sta rt: September 19, 2024 Dr. Faustina Bach MD Other Provider Active Start : September 19, 2024 Dr. Tomás Willis MD Other Provider Active Start: September 19, 2024 Dr. Stuart Balbuena MD Other Provider Active Start : September 19, 2024 Dr. Kamar Redmond MD Other Provider Active Sta rt: September 19, 2024 Chioma Hsieh MD Other Provider Active Start : September 19, 2024 Dr. Dennys Ryan MD Other Provider Active St art: September 19, 2024 Dr. Lori Jacobs MD Other Provider Active Start : September 19, 2024 Dr. Elisabeth Yung MD Other Provider Active Sta rt: September 19, 2024 Dr. Jovanny García MD Other Provider Active Start: September 19, 2024 Dr. Frank Yusuf MD Other Provider Active St art: September 19, 2024 Dr. Ariella Morrison MD Other Provider Active Star t: September 19, 2024 Dr. Sandor Zaldivar MD Other Provider Active St art: September 19, 2024 Dr. Flores Pruitt MD Other Provider Active Start: September 19, 2024 Martha Irene MD Other Provider Active Start: September 19, 2024 Dr. Marco Jones MD Attending Provider Active Start: September 19, 2024 Dr. Marco Jones MD Other Provider Active St art: September 19, 2024 Dr. Guevara Collins MD Other Provider Active Start: September 19, 2024 Team Status: Active Member Role Status Dates Dr. Homer Bradford MD Primary Care Provider Active Start: September 20, 2024 Randy Cabrales MD Emergency Provider Active Star t: September 20, 2024 Dr. Wilfredo Denton , Admit Provider Active Star t: September 20, 2024 Dr. Wilfredo Denton DO Other Provider Active Star t: September 20, 2024 Jonathan Butcher MD Other Provider Active Start: [facility] 2024 Dr. Kristen Simons MD Other Provider Active Start: September 20, 2024 Leyda Celis MD Other Provider Active Start : September 20, 2024 Dr. Hodan Chapa DO Other Provider Active St art: September 20, 2024 Dr. Leah Hartman MD Other Provider Active Start: September 20, 2024 Dr. Long Zamarripa MD Other Provider Active Sta rt: September 20, 2024 Dr. Faustina Bach MD Other Provider Active Start : September 20, 2024 Dr. Tomás Willis MD Other Provider Active Start: September 20, 2024 Dr. Stuart Balbuena MD Other Provider Active Start : September 20, 2024 Dr. Kamar Redmond MD Other Provider Active Sta rt: September 20, 2024 Chioma Hsieh MD Other Provider Active Start : September 20, 2024 Dr. Dennys Ryan MD Other Provider Active St art: September 20, 2024 Dr. Lroi Jacobs MD Other Provider Active Start : September 20, 2024 Dr. Elisabeth Yung MD Other Provider Active Sta rt: September 20, 2024 Dr. Jovanny García MD Other Provider Active Start: September 20, 2024 Dr. Frank Yusuf MD Other Provider Active St art: September 20, 2024 Dr. Ariella Morrison MD Other Provider Active Star t: September 20, 2024 Dr. Sandor Zaldivar MD Other Provider Active St art: September 20, 2024 Dr. Flores Pruitt MD Other Provider Active Start: September 20, 2024 Martha Irene MD Other Provider Active Start: September 20, 2024 Dr. Marco Jones MD Attending Provider Active Start: September 20, 2024 Dr. Marco Jones MD Other Provider Active St art: September 20, 2024 Dr. Guevara Collins MD Other Provider Active Start: September 20, 2024 Team Status: Active Member Role Status Dates Dr. Homer Bradford MD Primary Care Provider Active Start: September 21, 2024 Randy Cabrales MD Emergency Provider Active Star t: September 21, 2024 Dr. Wilfredo Denton DO Admit Provider Active Star t: September 21, 2024 Dr. Wilfredo Denton DO Other Provider Active Star t: September 21, 2024 Jonathan Butcher MD Other Provider Active Start: [facility] [address]24 Dr. Kristen Simons MD Other Provider Active Start: September 21, 2024 Leyda Celis MD Other Provider Active Start : September 21, 2024 Dr. Hodan Chapa DO Other Provider Active St art: September 21, 2024 Dr. Leah Hartman MD Other Provider Active Start: September 21, 2024 Dr. Long Zamarripa MD Other Provider Active Sta rt: September 21, 2024 Dr. Faustina Bach MD Other Provider Active Start : September 21, 2024 Dr. Tomás Willis MD Other Provider Active Start: September 21, 2024 Dr. Stuart Balbuena MD Other Provider Active Start : September 21, 2024 Dr. Kamar Redmond MD Other Provider Active Sta rt: September 21, 2024 Chioma Hsieh MD Other Provider Active Start : September 21, 2024 Dr. Dennys Ryan MD Other Provider Active St art: September 21, 2024 Dr. Lori Jacobs MD Other Provider Active Start : September 21, 2024 Dr. Elisabeth Yung MD Other Provider Active Sta rt: September 21, 2024 Dr. Jovanny García MD Other Provider Active Start: September 21, 2024 Dr. Frank Yusuf MD Other Provider Active St art: September 21, 2024 Dr. Ariella Morrison MD Other Provider Active Star t: September 21, 2024 Dr. Sandor Zaldivar MD Other Provider Active St art: September 21, 2024 Dr. Flores Pruitt MD Other Provider Active Start: September 21, 2024 Martha Irene MD Other Provider Active Start: September 21, 2024 Dr. Marco Jones MD Attending Provider Active Start: September 21, 2024 Dr. Marco Jones MD Other Provider Active St art: September 21, 2024 Dr. Guevara Collins MD Other Provider Active Start: September 21, 2024 Team Status: Active Member Role Status Dates Dr. Homer Bradford MD Primary Care Provider Active Start: November 04, 2024 Dr. Issa Chapin MD Emergency Provider Active Sta rt: November 04, 2024 Dr. Lauren Vela MD Attending Provider Active Start: November 04, 2024 Team Status: Active Member Role Status Dates Dr. Homer Bradford MD Primary Care Provider Active Start: November 04, 2024 Dr. Isas Chapin MD Emergency Provider Active Sta rt: November 04, 2024 Dr. Lauren Vela MD Admit Provider Active St art: November 04, 2024 Dr. Lauren Vela MD Attending Provider Active Start: November 04, 2024 Bottom Man Relationship Specialty Start Date End Date Homer Bradford MD [address] [place] [address] PCP - General Family Medicine 10/22/24 Mone Dupont, JACKIE.WAFFLE MACHINE OPERATOR [address] [place] [address] [id number] [facility] Family [facility] 06/23/24 Meagan Yusuf PA-C [address] [place] [address] [id number] [facility] Family Medicine 06/23/24 Bottom Man Relationship Specialty Start Date End Date Homer Bradford MD [address] [place], [place] 201391 PCP - General Family Medicine 10/22/24 Mone Dupont, JACKIE.WAFFLE MACHINE OPERATOR [address] [place] [address] [id number] [facility] 06/23/24 Meagan Yusuf PA-C [address] [place] [address] [employer] [facility] 06/23/24 Bottom Man Relationship Specialty Start Date End Date Homer Bradford MD [address] [place] [address] PCP - General Family Medicine 10/22/24 Meagan Yusuf PA-C [address] [place] [address] [employer] [facility] 06/23/24 Bottom Man Relationship Specialty Start Date End Date Homer Bradford MD [address] [place] [address] PCP - General Family Medicine 10/22/24 Mone Dupont, MOLD FILLER [employer].WAFFLE MACHINE OPERATOR [address] [place] [address] [facility] 12/17/24 Meagan Yusuf PA-C [address] [place] [address] [employer] [facility] 12/17/24 Bottom Man Relationship Specialty Start Date End Date Homer Bradford MD [address] [place] [address] PCP - General Family Medicine 10/22/24 Mone Dupont, JACKIE.WAFFLE MACHINE OPERATOR [address] [place] [address] [facility] 12/17/24 Meagan Yusuf PA-C [address] [place] [address] [employer] [facility] 12/17/24 Bottom Man Relationship Specialty Start Date End Date Homer Bradford MD [address] [place] [address] PCP - General Family Medicine 10/22/24 Mone Dupont, JACKIE.WAFFLE MACHINE OPERATOR [address] [place] [address] [employer] [facility] [facility] 12/17/24 Meagan Yusuf PA-C [address] [place] [address] [facility] Bottom Man Relationship Specialty Start Date End Date Homer Bradford MD [address] [place] [address] PCP - General Family Medicine 10/22/24 Mone Dupont APRN.WAFFLE MACHINE OPERATOR [address] [place] [address] [facility] Medicine 12/17/24 Meagan Yusuf PA-C [address] [place] [address] [facility] 12/17/24 Team Status: Inactive Member Role Status Dates Dr. Homer Bradford MD Primary Care Provider Active Start: November 04, 2024 End: November 07, 2024 Dr. Issa Chapin MD Emergency Provider Active Sta rt: November 04, 2024 End: November 07, 2024 Dr. Lauren Vela MD Admit Provider Active St art: November 04, 2024 End: November 07, 2024 Dr. Lauren Vela MD Other Provider Active St art: November 04, 2024 End: November 07, 2024 Dr. Azam Guillen DO Attending Provider Active Start: November 04, 2024 End: November 07, 2024 Team Status: Active Member Role Status Dates Dr. Homer Bradford MD Primary Care Provider Active Start: November 05, 2024 Dr. Issa Chapin MD Emergency Provider Active Sta rt: November 05, 2024 Dr. Lauren Vela MD Admit Provider Active St art: November 05, 2024 Dr. Lauren Vela MD Other Provider Active St art: November 05, 2024 Dr. Azam Guillen DO Attending Provider Active Start: November 05, 2024 Dr. Azam Guillen DO Other Provider Active S tart: November 05, 2024 Team Status: Active Member Role Status Dates Dr. Homer Bradford MD Primary Care Provider Active Start: November 06, 2024 Dr. Issa Chapin MD Emergency Provider Active Sta rt: November 06, 2024 Dr. Lauren Vela MD Admit Provider Active St art: November 06, 2024 Dr. Lauren Vela MD Other Provider Active St art: November 06, 2024 Dr. Azam Guillen DO Attending Provider Active Start: November 06, 2024 Dr. Azam Guillen DO Other Provider Active S tart: November 06, 2024 Team Status: Active Member Role Status Dates Dr. Homer Bradford MD Primary Care Provider Active Start: November 07, 2024 Dr. Issa Chapin MD Emergency Provider Active Sta rt: November 07, 2024 Dr. Lauren Vela MD Admit Provider Active St art: November 07, 2024 Dr. Lauren Vela MD Other Provider Active St art: November 07, 2024 Dr. Azam Guillen DO Attending Provider Active Start: November 07, 2024 Dr. Azam Guillen DO Other Provider Active S tart: November 07, 2024 Team Status: Inactive Member Role Status Dates Dr. Homer Bradford MD Primary Care Provider Active Start: November 12, 2024 End: November 12, 2024 Randy Cabrales MD Attending Provider Active Star t: November 12, 2024 End: November 12, 2024 Randy Cabrales MD Emergency Provider Active Star t: November 12, 2024 End: November 12, 2024 Team Status: Inactive Member Role Status Dates Dr. Homer Bradford MD Primary Care Provider Active Start: November 14, 2024 End: November 14, 2024 Dr. Wyatt Amos DO Attending Provider Activ e Start: November 14, 2024 End: November 14, 2024 Dr. Wyatt Amos DO Emergency Provider Activ e Start: November 14, 2024 End: November 14, 2024 Team Status: Active Member Role Status Dates Dr. Homer Bradford MD Primary Care Provider Active Start: January 08, 2025 Dr. Issa Chapin MD Emergency Provider Active Sta rt: January 08, 2025 Dr. Lauren Vela MD Admit Provider Active St art: January 08, 2025 Dr. Lauren Vela MD Attending Provider Active Start: January 08, 2025 Bottom Man Relationship Specialty Start Date End Date Homer Bradford MD [address] [place] [id number] PCP - General Family Medicine 10/22/24 Mone Dupont APRN.CNP [address] [place] [address] [id number] [facility] 12/17/24 Meagan Yusuf PA-C [address] [place], [place] [id number] [facility] 12/17/24 Team Status: Active Member Role/Relationship Status Dates Dr. Homer Bradford MD Primary Care Provider Active Team Status: Active Member Role/Relationship Status Dates Broderick Minor Primary Care Provider Active St art: January 07, 2012 Broderick Minor Family Provider Active Start: 2011 Team Status: Inactive Member Role/Relationship Status Dates Dr. Homer Bradford MD Primary Care Provider Active Start: September 12, 2024 End: September 21, 2024 Randy Cabrales MD Emergency Provider Active Star t: September 12, 2024 End: September 21, 2024 Dr. Wilfredo Denton DO Admit Provider Active Star t: September 12, 2024 End: September 21, 2024 Dr. Wilfredo Denton , Other Provider Active Star t: September 12, 2024 End: September 21, 2024 Jonathan Butcher MD Other Provider Active Start: [email or web address] End: September 21, 2024 Dr. Kristen Simons MD Other Provider Active Start: September 12, 2024 End: September 21, 2024 Leyda Celis MD Other Provider Active Start : September 12, 2024 End: September 21, 2024 Dr. Hodan Chapa , Other Provider Active St art: September 12, 2024 End: September 21, 2024 Dr. Leah Hartman MD Other Provider Active Start: September 12, 2024 End: September 21, 2024 Dr. Long Zamarripa MD Other Provider Active Sta rt: September 12, 2024 End: September 21, 2024 Dr. Faustina Bach MD Other Provider Active Start : September 12, 2024 End: September 21, 2024 Dr. Tomás Willis MD Other Provider Active Start: September 12, 2024 End: September 21, 2024 Dr. Stuart Balbuena MD Other Provider Active Start : September 12, 2024 End: September 21, 2024 Dr. Kamar Redmond MD Other Provider Active Sta rt: September 12, 2024 End: September 21, 2024 Chioma Hsieh MD Other Provider Active Start : September 12, 2024 End: September 21, 2024 Dr. Dennys Ryan MD Other Provider Active St art: September 12, 2024 End: September 21, 2024 Dr. Lori Jacobs MD Other Provider Active Start : September 12, 2024 End: September 21, 2024 Dr. Elisabeth Yung MD Other Provider Active Sta rt: September 12, 2024 End: September 21, 2024 Dr. Jovanny García MD Other Provider Active Start: September 12, 2024 End: September 21, 2024 Dr. Frank Yusuf MD Other Provider Active St art: September 12, 2024 End: September 21, 2024 Dr. Ariella Morrison MD Other Provider Active Star t: September 12, 2024 End: September 21, 2024 Dr. Sandor Zaldivar MD Other Provider Active St art: September 12, 2024 End: September 21, 2024 Dr. Flores Pruitt MD Other Provider Active Start: September 12, 2024 End: September 21, 2024 Martha Irene MD Other Provider Active Start: September 12, 2024 End: September 21, 2024 Dr. Marco Jones MD Attending Provider Active Start: September 12, 2024 End: September 21, 2024 Dr. Guevara Collins MD Other Provider Active Start: September 12, 2024 End: September 21, 2024 Team Status: Active Member Role/Relationship Status Dates Dr. Homer Bradford MD Primary Care Provider Active Start: September 13, 2024 Dr. Genoveva Garcia MD Attending Provider Activ e Start: September 13, 2024 Team Status: Active Member Role/Relationship Status Dates Dr. Homer Bradford MD Primary Care Provider Active Start: September 13, 2024 Randy Cabrales MD Emergency Provider Active Star t: September 13, 2024 Dr. Wilfredo Denton DO Admit Provider Active Star t: September 13, 2024 Dr. Wilfredo Denton DO Other Provider Active Star t: September 13, 2024 Jonathan Butcher MD Other Provider Active Start: 2024 Dr. Kristen Simons MD Other Provider Active Start: September 13, 2024 Leyda Celis MD Other Provider Active Start : September 13, 2024 Dr. Hodan Chapa DO Other Provider Active St art: September 13, 2024 Dr. Leah Hartman MD Other Provider Active Start: September 13, 2024 Dr. Long Zamarripa MD Other Provider Active Sta rt: September 13, 2024 Dr. Faustina Bach MD Other Provider Active Start : September 13, 2024 Dr. Tomás Willis MD Other Provider Active Start: September 13, 2024 Dr. Stuart Balbuena MD Other Provider Active Start : September 13, 2024 Dr. Kamar Redmond MD Other Provider Active Sta rt: September 13, 2024 Chioma Hsieh MD Other Provider Active Start : September 13, 2024 Dr. Dennys Ryan MD Other Provider Active St art: September 13, 2024 Dr. Lori Jacobs MD Other Provider Active Start : September 13, 2024 Dr. Elisabeth Yung MD Other Provider Active Sta rt: September 13, 2024 Dr. Jovanny García MD Other Provider Active Start: September 13, 2024 Dr. Frank Yusuf MD Other Provider Active St art: September 13, 2024 Dr. Ariella Morrison MD Other Provider Active Star t: September 13, 2024 Dr. Sandor Zaldivar MD Other Provider Active St art: September 13, 2024 Dr. Flores Pruitt MD Other Provider Active Start: September 13, 2024 Martha Irene MD Other Provider Active Start: September 13, 2024 Dr. Guevara Collins MD Attending Provider Active Start: September 13, 2024 Dr. Guevara Collins MD Other Provider Active Start: September 13, 2024 Team Status: Active Member Role/Relationship Status Dates Dr. Homer Bradford MD Primary Care Provider Active Start: September 14, 2024 Randy Cabrales MD Emergency Provider Active Star t: September 14, 2024 Dr. Wilfredo Denton DO Admit Provider Active Star t: September 14, 2024 Dr. Wilfredo Denton DO Other Provider Active Star t: September 14, 2024 Jonathan Butcher MD Other Provider Active Start: [facility]2024 Dr. Kristen Simons MD Other Provider Active Start: September 14, 2024 Leyda Celis MD Other Provider Active Start : September 14, 2024 Dr. Hodan Chapa DO Other Provider Active St art: September 14, 2024 Dr. Leah Hartman MD Other Provider Active Start: September 14, 2024 Dr. Long Zamarripa MD Other Provider Active Sta rt: September 14, 2024 Dr. Faustina Bach MD Other Provider Active Start : September 14, 2024 Dr. Tomás Willis MD Other Provider Active Start: September 14, 2024 Dr. Stuart Balbuena MD Other Provider Active Start : September 14, 2024 Dr. Kamar Redmond MD Other Provider Active Sta rt: September 14, 2024 Chioma Hsieh MD Other Provider Active Start : September 14, 2024 Dr. Dennys Ryan MD Other Provider Active St art: September 14, 2024 Dr. Lori Jacobs MD Other Provider Active Start : September 14, 2024 Dr. Elisabeth Yung MD Other Provider Active Sta rt: September 14, 2024 Dr. Jovanny García MD Other Provider Active Start: September 14, 2024 Dr. Frank Yusuf MD Other Provider Active St art: September 14, 2024 Dr. Ariella Morrison MD Other Provider Active Star t: September 14, 2024 Dr. Sandor Zaldivar MD Other Provider Active St art: September 14, 2024 Dr. Flores Pruitt MD Other Provider Active Start: September 14, 2024 Martha Irene MD Other Provider Active Start: September 14, 2024 Dr. Guevara Collins MD Attending Provider Active Start: September 14, 2024 Dr. Guevara Collins MD Other Provider Active Start: September 14, 2024 Team Status: Active Member Role/Relationship Status Dates Dr. Homer Bradford MD Primary Care Provider Active Start: September 15, 2024 Randy Cabrales MD Emergency Provider Active Star t: September 15, 2024 Dr. Wilfredo Denton DO Admit Provider Active Star t: September 15, 2024 Dr. Wilfredo Denton DO Other Provider Active Star t: September 15, 2024 Jonathan Butcher MD Other Provider Active Start: [facility] 2024 Dr. Kristen Simons MD Other Provider Active Start: September 15, 2024 Leyda Celis MD Other Provider Active Start : September 15, 2024 Dr. Hodan Chapa DO Other Provider Active St art: September 15, 2024 Dr. Leah Hartman MD Other Provider Active Start: September 15, 2024 Dr. Long Zamarripa MD Other Provider Active Sta rt: September 15, 2024 Dr. Faustina Bach MD Other Provider Active Start : September 15, 2024 Dr. Tomás Wlilis MD Other Provider Active Start: September 15, 2024 Dr. Stuart Balbuena MD Other Provider Active Start : September 15, 2024 Dr. Kamar Redmond MD Other Provider Active Sta rt: September 15, 2024 Chioma Hsieh MD Other Provider Active Start : September 15, 2024 Dr. Dennys Ryan MD Other Provider Active St art: September 15, 2024 Dr. Lori Jacobs MD Other Provider Active Start : September 15, 2024 Dr. Elisabeth Yung MD Other Provider Active Sta rt: September 15, 2024 Dr. Jovanny García MD Other Provider Active Start: September 15, 2024 Dr. Frank Yusuf MD Other Provider Active St art: September 15, 2024 Dr. Ariella Morrison MD Other Provider Active Star t: September 15, 2024 Dr. Sandor Zaldivar MD Other Provider Active St art: September 15, 2024 Dr. Flores Pruitt MD Other Provider Active Start: September 15, 2024 Martha Irene MD Other Provider Active Start: September 15, 2024 Dr. Guevara Collins MD Attending Provider Active Start: September 15, 2024 Dr. Guevara Collins MD Other Provider Active Start: September 15, 2024 Team Status: Active Member Role/Relationship Status Dates Dr. Homer Bradford MD Primary Care Provider Active Start: September 16, 2024 Randy Cabrales MD Emergency Provider Active Star t: September 16, 2024 Dr. Wilfredo Denton DO Admit Provider Active Star t: September 16, 2024 Dr. Wilfredo Denton DO Other Provider Active Star t: September 16, 2024 Jonathan Butcher MD Other Provider Active Start: [facility] 2024 Dr. Kristen Simons MD Other Provider Active Start: September 16, 2024 Leyda Celis MD Other Provider Active Start : September 16, 2024 Dr. Hodan Chapa DO Other Provider Active St art: September 16, 2024 Dr. Leah Hartman MD Other Provider Active Start: September 16, 2024 Dr. Long Zamarripa MD Other Provider Active Sta rt: September 16, 2024 Dr. Faustina Bach MD Other Provider Active Start : September 16, 2024 Dr. Tomás Willis MD Other Provider Active Start: September 16, 2024 Dr. Stuart Balbuena MD Other Provider Active Start : September 16, 2024 Dr. Kamar Redmond MD Other Provider Active Sta rt: September 16, 2024 Chioma Hsieh MD Other Provider Active Start : September 16, 2024 Dr. Dennys Ryan MD Other Provider Active St art: September 16, 2024 Dr. Lori Jacobs MD Other Provider Active Start : September 16, 2024 Dr. Elisabeth Yung MD Other Provider Active Sta rt: September 16, 2024 Dr. Jovanny García MD Other Provider Active Start: September 16, 2024 Dr. Frank Yusuf MD Other Provider Active St art: September 16, 2024 Dr. Ariella Morrison MD Other Provider Active Star t: September 16, 2024 Dr. Sandor Zaldivar MD Other Provider Active St art: September 16, 2024 Dr. Flores Pruitt MD Other Provider Active Start: September 16, 2024 Martha Irene MD Other Provider Active Start: September 16, 2024 Dr. Guevara Collins MD Attending Provider Active Start: September 16, 2024 Dr. Guevara Collins MD Other Provider Active Start: September 16, 2024 Team Status: Active Member Role/Relationship Status Dates Dr. Homer Bradford MD Primary Care Provider Active Start: September 17, 2024 Randy Cabrales MD Emergency Provider Active Star t: September 17, 2024 Dr. Wilfredo Denton DO Admit Provider Active Star t: September 17, 2024 Dr. Wilfredo Denton DO Other Provider Active Star t: September 17, 2024 Jonathan Butcher MD Other Provider Active Start: [facility] [address]24 [address]. Kristen Simons MD Other Provider Active Start: September 17, 2024 Leyda Celis MD Other Provider Active Start : September 17, 2024 Dr. Hodan Chapa DO Other Provider Active St art: September 17, 2024 Dr. Leah Hartman MD Other Provider Active Start: September 17, 2024 Dr. Long Zamarripa MD Other Provider Active Sta rt: September 17, 2024 Dr. Faustina Bach MD Other Provider Active Start : September 17, 2024 Dr. Tomás Willis MD Other Provider Active Start: September 17, 2024 Dr. Stuart Balbuena MD Other Provider Active Start : September 17, 2024 Dr. Kamar Redmond MD Other Provider Active Sta rt: September 17, 2024 Chioma Hsieh MD Other Provider Active Start : September 17, 2024 Dr. Dennys Ryan MD Other Provider Active St art: September 17, 2024 Dr. Lori Jacobs MD Other Provider Active Start : September 17, 2024 Dr. Elisabeth Yung MD Other Provider Active Sta rt: September 17, 2024 Dr. Jovanny García MD Other Provider Active Start: September 17, 2024 Dr. Frank Yusuf MD Other Provider Active St art: September 17, 2024 Dr. Ariella Morrison MD Other Provider Active Star t: September 17, 2024 Dr. Sandor Zaldivar MD Other Provider Active St art: September 17, 2024 Dr. Flores Pruitt MD Other Provider Active Start: September 17, 2024 Martha Irene MD Other Provider Active Start: September 17, 2024 Dr. Guevara Collins MD Attending Provider Active Start: September 17, 2024 Dr. Guevara Collins MD Other Provider Active Start: September 17, 2024 Team Status: Active Member Role/Relationship Status Dates Dr. Homer Bradford MD Primary Care Provider Active Start: September 18, 2024 Randy Cabrales MD Emergency Provider Active Star t: September 18, 2024 Dr. Wilfredo Denton DO Admit Provider Active Star t: September 18, 2024 Dr. Wilfredo Denton DO Other Provider Active Star t: September 18, 2024 Jontahan Butcher MD Other Provider Active Start: [facility] [address]24 Dr. Kristen Simons MD Other Provider Active Start: September 18, 2024 Leyda Celis MD Other Provider Active Start : September 18, 2024 Dr. Hodan Chapa DO Other Provider Active St art: September 18, 2024 Dr. Leah Hartman MD Other Provider Active Start: September 18, 2024 Dr. Long Zamarripa MD Other Provider Active Sta rt: September 18, 2024 Dr. Faustina Bach MD Other Provider Active Start : September 18, 2024 Dr. Tomás Willis MD Other Provider Active Start: September 18, 2024 Dr. Stuart Balbuena MD Other Provider Active Start : September 18, 2024 Dr. Kamar Redmond MD Other Provider Active Sta rt: September 18, 2024 Chioma Hsieh MD Other Provider Active Start : September 18, 2024 Dr. Dennys Ryan MD Other Provider Active St art: September 18, 2024 Dr. Lori Jacobs MD Other Provider Active Start : September 18, 2024 Dr. Elisabeth Yung MD Other Provider Active Sta rt: September 18, 2024 Dr. Jovanny García MD Other Provider Active Start: September 18, 2024 Dr. Frank Yusuf MD Other Provider Active St art: September 18, 2024 Dr. Ariella Morrison MD Other Provider Active Star t: September 18, 2024 Dr. Sandor Zaldivar MD Other Provider Active St art: September 18, 2024 Dr. Flores Pruitt MD Other Provider Active Start: September 18, 2024 Martha Irene MD Other Provider Active Start: September 18, 2024 Dr. Guevara Collins MD Attending Provider Active Start: September 18, 2024 Dr. Guevara Collins MD Other Provider Active Start: September 18, 2024 Team Status: Active Member Role/Relationship Status Dates Dr. Homer Bradford MD Primary Care Provider Active Start: September 19, 2024 Randy Cabrales MD Emergency Provider Active Star t: September 19, 2024 Dr. Wilfredo Denton DO Admit Provider Active Star t: September 19, 2024 Dr. Wilfredo Denton DO Other Provider Active Star t: September 19, 2024 Jonathan Butcher MD Other Provider Active Start: [facility] 2024 Dr. Kristen Simons MD Other Provider Active Start: September 19, 2024 Leyda Celis MD Other Provider Active Start : September 19, 2024 Dr. Hodan Chapa DO Other Provider Active St art: September 19, 2024 Dr. Leah Hartman MD Other Provider Active Start: September 19, 2024 Dr. Long Zamarripa MD Other Provider Active Sta rt: September 19, 2024 Dr. Faustina Bach MD Other Provider Active Start : September 19, 2024 Dr. Tomás Willis MD Other Provider Active Start: September 19, 2024 Dr. Stuart Balbuena MD Other Provider Active Start : September 19, 2024 Dr. Kamar Redmond MD Other Provider Active Sta rt: September 19, 2024 Chioma Hsieh MD Other Provider Active Start : September 19, 2024 Dr. Dennys Ryan MD Other Provider Active St art: September 19, 2024 Dr. Lori Jacobs MD Other Provider Active Start : September 19, 2024 Dr. Elisabeth Yung MD Other Provider Active Sta rt: September 19, 2024 Dr. Jovanny García MD Other Provider Active Start: September 19, 2024 Dr. Frank Yusuf MD Other Provider Active St art: September 19, 2024 Dr. Ariella Morrison MD Other Provider Active Star t: September 19, 2024 Dr. Sandor Zaldivar MD Other Provider Active St art: September 19, 2024 Dr. Flores Pruitt MD Other Provider Active Start: September 19, 2024 Martha Irene MD Other Provider Active Start: September 19, 2024 Dr. Marco Jones MD Attending Provider Active Start: September 19, 2024 Dr. Marco Jones MD Other Provider Active St art: September 19, 2024 Dr. Guevara Collins MD Other Provider Active Start: September 19, 2024 Team Status: Active Member Role/Relationship Status Dates Dr. Homer Bradford MD Primary Care Provider Active Start: September 20, 2024 Randy Cabrales MD Emergency Provider Active Star t: September 20, 2024 Dr. Wilfredo Denton DO Admit Provider Active Star t: September 20, 2024 Dr. Wilfredo Denton DO Other Provider Active Star t: September 20, 2024 Jonathan Butcher MD Other Provider Active Start: [facility] 2024 Dr. Kristen Simons MD Other Provider Active Start: September 20, 2024 Leyda Celis MD Other Provider Active Start : September 20, 2024 Dr. Hodan Chapa DO Other Provider Active St art: September 20, 2024 Dr. Leah Hartman MD Other Provider Active Start: September 20, 2024 Dr. Long Zamarripa MD Other Provider Active Sta rt: September 20, 2024 Dr. Faustina Bach MD Other Provider Active Start : September 20, 2024 Dr. Tomás Willis MD Other Provider Active Start: September 20, 2024 Dr. Stuart Balbuena MD Other Provider Active Start : September 20, 2024 Dr. Kamar Redmond MD Other Provider Active Sta rt: September 20, 2024 Chioma Hsieh MD Other Provider Active Start : September 20, 2024 Dr. Dennys Ryan MD Other Provider Active St art: September 20, 2024 Dr. Lori Jacobs MD Other Provider Active Start : September 20, 2024 Dr. Elisabeth Yung MD Other Provider Active Sta rt: September 20, 2024 Dr. Jovanny García MD Other Provider Active Start: September 20, 2024 Dr. Frank Yusuf MD Other Provider Active St art: September 20, 2024 Dr. Ariella Morrison MD Other Provider Active Star t: September 20, 2024 Dr. Sandor Zaldivar MD Other Provider Active St art: September 20, 2024 Dr. Flores Pruitt MD Other Provider Active Start: September 20, 2024 Martha Irene MD Other Provider Active Start: September 20, 2024 Dr. Marco Jones MD Attending Provider Active Start: September 20, 2024 Dr. Marco Jones MD Other Provider Active St art: September 20, 2024 Dr. Guevara Collins MD Other Provider Active Start: September 20, 2024 Team Status: Active Member Role/Relationship Status Dates Dr. Homer Bradford MD Primary Care Provider Active Start: September 21, 2024 Randy Cabrales MD Emergency Provider Active Star t: September 21, 2024 Dr. Wilfredo Denton DO Admit Provider Active Star t: September 21, 2024 Dr. Wilfredo Denton DO Other Provider Active Star t: September 21, 2024 Jonathan Butcher MD Other Provider Active Start: [facility] 2024 Dr. Kristen Simons MD Other Provider Active Start: September 21, 2024 Leyda Celis MD Other Provider Active Start : September 21, 2024 Dr. Hodan Chapa DO Other Provider Active St art: September 21, 2024 Dr. Leah Hartman MD Other Provider Active Start: September 21, 2024 Dr. Long Zamarripa MD Other Provider Active Sta rt: September 21, 2024 Dr. Faustina Bach MD Other Provider Active Start : September 21, 2024 Dr. Tomás Willis MD Other Provider Active Start: September 21, 2024 Dr. Stuart Balbuena MD Other Provider Active Start : September 21, 2024 Dr. Kamar Redmond MD Other Provider Active Sta rt: September 21, 2024 Chioma Hsieh MD Other Provider Active Start : September 21, 2024 Dr. Dennys Ryan MD Other Provider Active St art: September 21, 2024 Dr. Lori Jacobs MD Other Provider Active Start : September 21, 2024 Dr. Elisabeth Yung MD Other Provider Active Sta rt: September 21, 2024 Dr. Jovanny García MD Other Provider Active Start: September 21, 2024 Dr. Frank Yusuf MD Other Provider Active St art: September 21, 2024 Dr. Ariella Morrison MD Other Provider Active Star t: September 21, 2024 Dr. Sandor Zaldivar MD Other Provider Active St art: September 21, 2024 Dr. Flores Pruitt MD Other Provider Active Start: September 21, 2024 Martha Irene MD Other Provider Active Start: September 21, 2024 Dr. Marco Jones MD Attending Provider Active Start: September 21, 2024 Dr. Marco Jones MD Other Provider Active St art: September 21, 2024 Dr. Guevara Collins MD Other Provider Active Start: September 21, 2024 Team Status: Active Member Role/Relationship Status Dates Dr. Homer Bradford MD Primary Care Provider Active Start: November 04, 2024 Dr. Issa Chapin MD Emergency Provider Active Sta rt: November 04, 2024 Dr. Lauren Vela MD Attending Provider Active Start: November 04, 2024 Team Status: Inactive Member Role/Relationship Status Dates Dr. Homer Bradford MD Primary Care Provider Active Start: November 04, 2024 End: November 07, 2024 Dr. Issa Chapin MD Emergency Provider Active Sta rt: November 04, 2024 End: November 07, 2024 Dr. Lauren Vela MD Admit Provider Active St art: November 04, 2024 End: November 07, 2024 Dr. Lauren Vela MD Other Provider Active St art: November 04, 2024 End: November 07, 2024 Dr. Azam Guillen DO Attending Provider Active Start: November 04, 2024 End: November 07, 2024 Team Status: Active Member Role/Relationship Status Dates Dr. Homer Bradford MD Primary Care Provider Active Start: November 05, 2024 Dr. Issa Chapin MD Emergency Provider Active Sta rt: November 05, 2024 Dr. Lauren Vela MD Admit Provider Active St art: November 05, 2024 Dr. Lauren Vela MD Other Provider Active St art: November 05, 2024 Dr. Azam Guillen DO Attending Provider Active Start: November 05, 2024 Dr. Azam Guillen DO Other Provider Active S tart: November 05, 2024 Team Status: Active Member Role/Relationship Status Dates Dr. Homer Bradford MD Primary Care Provider Active Start: November 06, 2024 Dr. Issa Chapin MD Emergency Provider Active Sta rt: November 06, 2024 Dr. Lauren Vela MD Admit Provider Active St art: November 06, 2024 Dr. Lauren Vela MD Other Provider Active St art: November 06, 2024 Dr. Azam Guillen DO Attending Provider Active Start: November 06, 2024 Dr. Azam Guillen DO Other Provider Active S tart: November 06, 2024 Team Status: Active Member Role/Relationship Status Dates Dr. Homer Bradford MD Primary Care Provider Active Start: November 07, 2024 Dr. Issa Chapin MD Emergency Provider Active Sta rt: November 07, 2024 Dr. Lauren Vela MD Admit Provider Active St art: November 07, 2024 Dr. Lauren Vela MD Other Provider Active St art: November 07, 2024 Dr. Azam Guillen DO Attending Provider Active Start: November 07, 2024 Dr. Azam Guillen DO Other Provider Active S tart: November 07, 2024 Team Status: Inactive Member Role/Relationship Status Dates Dr. Homer Bradford MD Primary Care Provider Active Start: November 12, 2024 End: November 12, 2024 Randy Cabrales MD Attending Provider Active Star t: November 12, 2024 End: November 12, 2024 Randy Cabrales MD Emergency Provider Active Star t: November 12, 2024 End: November 12, 2024 Team Status: Inactive Member Role/Relationship Status Dates Dr. Homer Bradford MD Primary Care Provider Active Start: November 14, 2024 End: November 14, 2024 Dr. Wyatt Amos DO Attending Provider Activ e Start: November 14, 2024 End: November 14, 2024 Dr. Wyatt Amos DO Emergency Provider Activ e Start: November 14, 2024 End: November 14, 2024 Team Status: Inactive Member Role/Relationship Status Dates Dr. Homer Bradford MD Primary Care Provider Active Start: January 08, 2025 End: January 11, 2025 Dr. Issa Chapin MD Emergency Provider Active Sta rt: January 08, 2025 End: January 11, 2025 Dr. Lauren Vela MD Admit Provider Active St art: January 08, 2025 End: January 11, 2025 Dr. Lauren Vela MD Other Provider Active St art: January 08, 2025 End: January 11, 2025 Dr. Peter Herbert MD Attending Provider Active Start: January 08, 2025 End: January 11, 2025 Dr. Luis Antonio Navarro DO Other Provider Active Start: January 08, 2025 End: January 11, 2025 Team Status: Active Member Role/Relationship Status Dates Dr. Homer Bradford MD Primary Care Provider Active Start: January 09, 2025 Dr. Issa Chapin MD Emergency Provider Active Sta rt: January 09, 2025 Dr. Lauren Vela MD Admit Provider Active St art: January 09, 2025 Dr. Lauren Vela MD Other Provider Active St art: January 09, 2025 Dr. Luis Antonio Navarro DO Attending Provider Active Start: January 09, 2025 Dr. Luis Antonio Navarro DO Other Provider Active Start: January 09, 2025 Dr. Elijah Blake MD Other Provider Active Start: January 09, 2025 Dr. Colby Williamson MD Other Provider Active Start: January 09, 2025 Dr. Shahram Sarmiento MD Other Provider Active Star t: January 09, 2025 Dr. Dallin Christopher DO Other Provider Active Start : January 09, 2025 Dr. Matt Tran MD Other Provider Active Sta rt: January 09, 2025 Dr. Matt Rodrigues MD Other Provider Active St art: January 09, 2025 Dr. Leon Santos MD Other Provider Active S tart: January 09, 2025 Dr. Lalita Lozano MD Other Provider Active Start: January 09, 2025 Dr. Kyle Puri MD Other Provider Active Start : January 09, 2025 Dr. Lenny Lucia MD Other Provider Active Start: January 09, 2025 Dr. Jovani Wynn MD Other Provider Active Start : January 09, 2025 Dr. Radha Soliman MD Other Provider Active Star t: January 09, 2025 Dr. Oziel Keating MD Other Provider Active Sta rt: January 09, 2025 Dr. Mara Lamb MD Other Provider Active Sta rt: January 09, 2025 Dr. Valentino Woods MD Other Provider Active Star t: January 09, 2025 Dr. Estuardo Villegas MD Other Provider Active St art: January 09, 2025 Dr. Raul Han MD Other Provider Active Star t: January 09, 2025 Dr. Eleazar Barber DO Other Provider Active St art: January 09, 2025 Dr. Deepak Tellez MD Other Provider Active Start: January 09, 2025 Dr. Palma Walker MD Other Provider Active St art: January 09, 2025 Dr. Martin Bhatti DO Other Provider Active Start: January 09, 2025 Dr. Alejo Hill MD Other Provider Active Star t: January 09, 2025 Dr. Orlando Lee MD Other Provider Active Sta rt: January 09, 2025 Team Status: Active Member Role/Relationship Status Dates Dr. Homer Bradford MD Primary Care Provider Active Start: January 10, 2025 Dr. Issa Chapin MD Emergency Provider Active Sta rt: January 10, 2025 Dr. Lauren Vela MD Admit Provider Active St art: January 10, 2025 Dr. Lauren Vela MD Other Provider Active St art: January 10, 2025 Dr. Peter Herbert MD Attending Provider Active Start: January 10, 2025 Dr. Peter Herbert MD Other Provider Active Sta rt: January 10, 2025 Dr. Luis Antonio Navarro DO Other Provider Active Start: January 10, 2025 Team Status: Active Member Role/Relationship Status Dates Dr. Homer Bradford MD Primary Care Provider Active Start: January 10, 2025 Dr. Issa Chapin MD Emergency Provider Active Sta rt: January 10, 2025 Dr. Lauren Vela MD Admit Provider Active St art: January 10, 2025 Dr. Lauren Vela MD Other Provider Active St art: January 10, 2025 Dr. Peter Herbert MD Other Provider Active Sta rt: January 10, 2025 Dr. Luis Antonio Navarro DO Other Provider Active Start: January 10, 2025 Dr. Dallin Christopher DO Attending Provider Active S tart: January 10, 2025 Team Status: Active Member Role/Relationship Status Dates Dr. Homer Bradford MD Primary Care Provider Active Start: January 10, 2025 Dr. Wilfredo Shelby MD Attending Provider Active S tart: January 10, 2025 Team Status: Active Member Role/Relationship Status Dates Dr. Homer Bradford MD Primary Care Provider Active Start: January 11, 2025 Dr. Issa Chapin MD Emergency Provider Active Sta rt: January 11, 2025 Dr. Lauren Vela MD Admit Provider Active St art: January 11, 2025 Dr. Lauren Vela MD Other Provider Active St art: January 11, 2025 Dr. Peter Herbert MD Attending Provider Active Start: January 11, 2025 Dr. Peter Herbert MD Other Provider Active Sta rt: January 11, 2025 Dr. Luis Antonio Navarro DO Other Provider Active Start: January 11, 2025 Bottom Man Relationship Specialty Start Date End Date Homer Bradford MD [address] [place], [place] [id number] PCP - General Family Medicine 10/22/24 Mone Dupont APRN.CNP [address] [place] [address] [id number] [facility] Family Medicine 12/17/24 Meagan Yusuf PA-C [address] [place] [address] [id number] [facility] Family Medicine 12/17/24 Bottom Man Relationship Specialty Start Date End Date Homer Bradford MD [address] [place] [address] PCP - General Family Medicine 10/22/24 Mone Dupont, JACKIE.WAFFLE MACHINE OPERATOR [address] [place] [address] [employer] Family Medicine 12/17/24 Meagan Yusuf PA-C [address] [place] [address] [employer] Family Medicine 12/17/24 Bottom Man Relationship Specialty Start Date End Date Homer Bradford MD [address] [place] [address] PCP - General Family Medicine 10/22/24 Mone Dupont, MOLD [employer].WAFFLE MACHINE OPERATOR [address] [place] [address] [employer] Family Medicine 12/17/24 Meagan Yusuf PA-C [address] [place] [address] [employer] Family Medicine 12/17/24 Bottom Man Relationship Specialty Start Date End Date Homer Bradford MD [address] [place] [address] PCP - General Family Medicine 10/22/24 Mone Dupont, MOLD F[employer]ER [employer].WAFFLE MACHINE OPERATOR [address] [place] [address] [employer] Family Medicine 12/17/24 Meagan Yusuf PA-C [address] [place] [address] [employer] Family Medicine 12/17/24 Team Status: Active Member Role/Relationship Status Dates Dr. Homer Bradford MD Primary Care Provider Active Start: November 04, 2024 Dr. Issa Chapin MD Emergency Provider Active Sta rt: November 04, 2024 Dr. Lauren Vela MD Attending Provider Active Start: November 04, 2024 Team Status: Inactive Member Role/Relationship Status Dates Dr. Homer Bradford MD Primary Care Provider Active Start: November 04, 2024 End: November 07, 2024 Dr. Issa Chapin MD Emergency Provider Active Sta rt: November 04, 2024 End: November 07, 2024 Dr. Lauren Vela MD Admit Provider Active St art: November 04, 2024 End: November 07, 2024 Dr. Lauren Vela MD Other Provider Active St art: November 04, 2024 End: November 07, 2024 Dr. Azam Guillen DO Attending Provider Active Start: November 04, 2024 End: November 07, 2024 Team Status: Active Member Role/Relationship Status Dates Dr. Homer Bradford MD Primary Care Provider Active Start: November 05, 2024 Dr. Issa Chapin MD Emergency Provider Active Sta rt: November 05, 2024 Dr. Lauren Vela MD Admit Provider Active St art: November 05, 2024 Dr. Lauren Vela MD Other Provider Active St art: November 05, 2024 Dr. Azam Guillen DO Attending Provider Active Start: November 05, 2024 Dr. Azam Guillen DO Other Provider Active S tart: November 05, 2024 Team Status: Active Member Role/Relationship Status Dates Dr. Homer Bradford MD Primary Care Provider Active Start: November 06, 2024 Dr. Issa Chapin MD Emergency Provider Active Sta rt: November 06, 2024 Dr. Lauren Vela MD Admit Provider Active St art: November 06, 2024 Dr. Lauren Vela MD Other Provider Active St art: November 06, 2024 Dr. Azam Guillen DO Attending Provider Active Start: November 06, 2024 Dr. Azam Guillen DO Other Provider Active S tart: November 06, 2024 Team Status: Active Member Role/Relationship Status Dates Dr. Homer Bradford MD Primary Care Provider Active Start: November 07, 2024 Dr. Issa Chapin MD Emergency Provider Active Sta rt: November 07, 2024 Dr. Lauren Vela MD Admit Provider Active St art: November 07, 2024 Dr. Lauren Vela MD Other Provider Active St art: November 07, 2024 Dr. Azam Guillen DO Attending Provider Active Start: November 07, 2024 Dr. Azam Guillen DO Other Provider Active S tart: November 07, 2024 Team Status: Inactive Member Role/Relationship Status Dates Dr. Homer Bradford MD Primary Care Provider Active Start: November 12, 2024 End: November 12, 2024 Randy Cabrales MD Attending Provider Active Star t: November 12, 2024 End: November 12, 2024 Randy Cabrales MD Emergency Provider Active Star t: November 12, 2024 End: November 12, 2024 Team Status: Inactive Member Role/Relationship Status Dates Dr. Homer Bradford MD Primary Care Provider Active Start: November 14, 2024 End: November 14, 2024 Dr. Wyatt Amos DO Attending Provider Activ e Start: November 14, 2024 End: November 14, 2024 Dr. Wyatt Amos DO Emergency Provider Activ e Start: November 14, 2024 End: November 14, 2024 Team Status: Inactive Member Role/Relationship Status Dates Dr. Homer Bradford MD Primary Care Provider Active Start: January 08, 2025 End: January 11, 2025 Dr. Issa Chapin MD Emergency Provider Active Sta rt: January 08, 2025 End: January 11, 2025 Dr. Lauren Vela MD Admit Provider Active St art: January 08, 2025 End: January 11, 2025 Dr. Lauren Vela MD Other Provider Active St art: January 08, 2025 End: January 11, 2025 Dr. Peter Herbert MD Attending Provider Active Start: January 08, 2025 End: January 11, 2025 Dr. Luis Antonio Navarro DO Other Provider Active Start: January 08, 2025 End: January 11, 2025 Team Status: Active Member Role/Relationship Status Dates Dr. Homer Bradford MD Primary Care Provider Active Start: January 09, 2025 Dr. Issa Chapin MD Emergency Provider Active Sta rt: January 09, 2025 Dr. Lauren Vela MD Admit Provider Active St art: January 09, 2025 Dr. Lauren Vela MD Other Provider Active St art: January 09, 2025 Dr. Luis Antonio Navarro , DO Attending Provider Active Start: January 09, 2025 Dr. Luis Antonio Navarro , DO Other Provider Active Start: January 09, 2025 Dr. Elijah Blake MD Other Provider Active Start: January 09, 2025 Dr. Colby Williamson MD Other Provider Active Start: January 09, 2025 Dr. Shahram Sarmiento MD Other Provider Active Star t: January 09, 2025 Dr. Dallin Christopher , Other Provider Active Start : January 09, 2025 Dr. Matt Tran MD Other Provider Active Sta rt: January 09, 2025 Dr. Matt Rodrigues MD Other Provider Active St art: January 09, 2025 Dr. Leon Santos MD Other Provider Active S tart: January 09, 2025 Dr. Lalita Lozano MD Other Provider Active Start: January 09, 2025 Dr. Kyle Puri MD Other Provider Active Start : January 09, 2025 Dr. Lenny Lucia MD Other Provider Active Start: January 09, 2025 Dr. Jovani Wynn MD Other Provider Active Start : January 09, 2025 Dr. Radha Soliman MD Other Provider Active Star t: January 09, 2025 Dr. Oziel Keating MD Other Provider Active Sta rt: January 09, 2025 Dr. Mara Lamb MD Other Provider Active Sta rt: January 09, 2025 Dr. Valentino Woods MD Other Provider Active Star t: January 09, 2025 Dr. Estuardo Villegas MD Other Provider Active St art: January 09, 2025 Dr. Raul Han MD Other Provider Active Star t: January 09, 2025 Dr. Eleazar Barber , Other Provider Active St art: January 09, 2025 Dr. Deepak Tellez MD Other Provider Active Start: January 09, 2025 Dr. Palma Walker MD Other Provider Active St art: January 09, 2025 Dr. Martin Bhatti , Other Provider Active Start: January 09, 2025 Dr. Alejo Hill MD Other Provider Active Star t: January 09, 2025 Dr. Orlando Lee MD Other Provider Active Sta rt: January 09, 2025 Team Status: Active Member Role/Relationship Status Dates Dr. Homer Bradford MD Primary Care Provider Active Start: January 10, 2025 Dr. Issa Chapin MD Emergency Provider Active Sta rt: January 10, 2025 Dr. Lauren Vela MD Admit Provider Active St art: January 10, 2025 Dr. Lauren Vela MD Other Provider Active St art: January 10, 2025 Dr. Peter Herbert MD Attending Provider Active Start: January 10, 2025 Dr. Peter Herbert MD Other Provider Active Sta rt: January 10, 2025 Dr. Luis Antonio Navarro DO Other Provider Active Start: January 10, 2025 Team Status: Active Member Role/Relationship Status Dates Dr. Homer Bradford MD Primary Care Provider Active Start: January 10, 2025 Dr. Issa Chapin MD Emergency Provider Active Sta rt: January 10, 2025 Dr. Lauren Vela MD Admit Provider Active St art: January 10, 2025 Dr. Lauren Vela MD Other Provider Active St art: January 10, 2025 Dr. Peter Herbert MD Other Provider Active Sta rt: January 10, 2025 Dr. Luis Antonio Navarro DO Referring Provider Active Start: January 10, 2025 Dr. Luis Antonio Navarro DO Other Provider Active Start: January 10, 2025 Dr. Dallin Christopher DO Attending Provider Active S tart: January 10, 2025 Team Status: Active Member Role/Relationship Status Dates Dr. Homer Bradford MD Primary Care Provider Active Start: January 10, 2025 Dr. Wilfredo Shelyb MD Attending Provider Active S tart: January 10, 2025 Dr. Peter Herbert MD Referring Provider Active Start: January 10, 2025 Team Status: Active Member Role/Relationship Status Dates Dr. Homer Bradford MD Primary Care Provider Active Start: January 11, 2025 Dr. Issa Chapin MD Emergency Provider Active Sta rt: January 11, 2025 Dr. Lauren Vela MD Admit Provider Active St art: January 11, 2025 Dr. Lauren Vela MD Other Provider Active St art: January 11, 2025 Dr. Peter Herbert MD Attending Provider Active Start: January 11, 2025 Dr. Peter Herbert MD Other Provider Active Sta rt: January 11, 2025 Dr. Luis Antonio Navarro DO Other Provider Active Start: January 11, 2025 Team Status: Active Member Role/Relationship Status Dates Dr. Homer Bradford MD Primary Care Provider Active Start: 2025 Dr. Vijay Love MD Attending Provider Active Start: 2025 YADIRA Baumann Referring Provider Active Start: 2025 Team Status: Active Member Role/Relationship Status Dates Dr. Homer Bradford MD Primary Care Provider Active Start: January 31, 2025 Dr. Vijay Love MD Attending Provider Active Start: January 31, 2025 Dr. Vijay Love MD Other Provider Active Sta rt: January 31, 2025 YADIRA Baumann Referring Provider Active Start: January 31, 2025 Team Status: Inactive Member Role/Relationship Status Dates Dr. Homer Bradford MD Primary Care Provider Active Start: January 31, 2025 End: January 31, 2025 Dr. Homer Bradford MD Referring Provider Active Start: January 31, 2025 End: January 31, 2025 Taylor Julian NP, CATEGORY DEVELOPMENT MANAGER-C Attending Provider Active Start: January 31, 2025 End: January 31, 2025 Team Status: Inactive Member Role/Relationship Status Dates Dr. Homer Bradford MD Primary Care Provider Active Start: January 15, 2025 Dr. Jennifer Alba MD Attending Provider Active Start: January 15, 2025 Team Status: Inactive Member Role/Relationship Status Dates Dr. Homer Bradford MD Primary Care Provider Active Start: 2025 End: February 14, 2025 Dr. Vijay Love MD Attending Provider Active Start: 2025 End: February 14, 2025 YADIRA Baumann Referring Provider Active Start: 2025 End: February 14, 2025 Team Status: Active Member Role/Relationship Status Dates Dr. Homer Bradford MD Primary Care Provider Active Start: January 31, 2025 Dr. Vijay Love MD Attending Provider Active Start: January 31, 2025 Dr. Vijay Love MD Other Provider Active Sta rt: January 31, 2025 Meagan MAY PA Referring Provider Active Start: January 31, 2025 Team Status: Inactive Member Role/Relationship Status Dates Dr. Homer Bradford MD Primary Care Provider Active Start: January 31, 2025 End: January 31, 2025 Dr. Homer Bradford MD Referring Provider Active Start: January 31, 2025 End: January 31, 2025 Taylor Julian CATEGORY DEVELOPMENT MANAGER, CATEGORY DEVELOPMENT MANAGER-C Attending Provider Active Start: January 31, 2025 End: January 31, 2025 Team Status: Active Member Role/Relationship Status Dates Dr. Homer Bradford MD Primary Care Provider Active Start: 2025 Dr. Vijay Love MD Attending Provider Active Start: 2025 Dr. Vijay Love MD Other Provider Active Sta rt: 2025 Meagan MAY PA Referring Provider Active Start: 2025 Team Status: Active Member Role/Relationship Status Dates Dr. Homer Bradford MD Primary Care Provider Active Start: February 19, 2025 Dr. Vijay Love MD Attending Provider Active Start: February 19, 2025 Meagan MAY PA Referring Provider Active Start: February 19, 2025 Team Status: Inactive Member Role/Relationship Status Dates Dr. Homer Bradford MD Primary Care Provider Active Start: February 27, 2025 End: February 27, 2025 Dr. Homer Bradford MD Referring Provider Active Start: February 27, 2025 End: February 27, 2025 Dr. Jennifer Alba MD Attending Provider Active Start: February 27, 2025 End: February 27, 2025 Bottom Man Relationship Specialty Start Date End Date Homer Bradford MD [address] [place] [address] PCP - General Family Medicine 10/22/24 Mone Dupont APRN.CNP [address] [place] [id number] [employer] [facility] 12/17/24 Meagan Yusuf PA-C [address] [place] [address] [facility] 12/17/24 Team Status: Inactive Member Role/Relationship Status Dates Dr. Homer Bradford MD Primary Care Provider Active Start: November 12, 2024 End: November 12, 2024 Randy Cabrales MD Attending Provider Active Star t: November 12, 2024 End: November 12, 2024 Randy Cabrales MD Emergency Provider Active Star t: November 12, 2024 End: November 12, 2024 Team Status: Inactive Member Role/Relationship Status Dates Dr. Homer Bradford MD Primary Care Provider Active Start: November 14, 2024 End: November 14, 2024 Dr. Wyatt Amos DO Attending Provider Activ e Start: November 14, 2024 End: November 14, 2024 Dr. Wyatt Amos DO Emergency Provider Activ e Start: November 14, 2024 End: November 14, 2024 Team Status: Inactive Member Role/Relationship Status Dates Dr. Homer Bradford MD Primary Care Provider Active Start: January 08, 2025 End: January 11, 2025 Dr. Issa Chapin MD Emergency Provider Active Sta rt: January 08, 2025 End: January 11, 2025 Dr. Lauren Vela MD Admit Provider Active St art: January 08, 2025 End: January 11, 2025 Dr. Lauren Vela MD Other Provider Active St art: January 08, 2025 End: January 11, 2025 Dr. Peter Herbert MD Attending Provider Active Start: January 08, 2025 End: January 11, 2025 Dr. Luis Antonio Navarro DO Other Provider Active Start: January 08, 2025 End: January 11, 2025 Team Status: Active Member Role/Relationship Status Dates Dr. Homer Bradford MD Primary Care Provider Active Start: January 09, 2025 Dr. Issa Chapin MD Emergency Provider Active Sta rt: January 09, 2025 Dr. Lauren Vela MD Admit Provider Active St art: January 09, 2025 Dr. Lauren Vela MD Other Provider Active St art: January 09, 2025 Dr. Luis Antonio Navarro , Attending Provider Active Start: January 09, 2025 Dr. Luis Antonio Navarro , DO Other Provider Active Start: January 09, 2025 Dr. Elijah Blake MD Other Provider Active Start: January 09, 2025 Dr. Colby Williamson MD Other Provider Active Start: January 09, 2025 Dr. Shahram Sarmiento MD Other Provider Active Star t: January 09, 2025 Dr. Dallin Christopher , Other Provider Active Start : January 09, 2025 Dr. Matt Tran MD Other Provider Active Sta rt: January 09, 2025 Dr. Matt Rodrigues MD Other Provider Active St art: January 09, 2025 Dr. Leon Santos MD Other Provider Active S tart: January 09, 2025 Dr. Lalita Lozano MD Other Provider Active Start: January 09, 2025 Dr. Kyle Puri MD Other Provider Active Start : January 09, 2025 Dr. Lenny Lucia MD Other Provider Active Start: January 09, 2025 Dr. Jovani Wynn MD Other Provider Active Start : January 09, 2025 Dr. Radha Soliman MD Other Provider Active Star t: January 09, 2025 Dr. Oziel Keating MD Other Provider Active Sta rt: January 09, 2025 Dr. Mara Lamb MD Other Provider Active Sta rt: January 09, 2025 Dr. Valentino Woods MD Other Provider Active Star t: January 09, 2025 Dr. Estuardo Villegas MD Other Provider Active St art: January 09, 2025 Dr. Raul Han MD Other Provider Active Star t: January 09, 2025 Dr. Eleazar Barber , Other Provider Active St art: January 09, 2025 Dr. Deepak Tellez MD Other Provider Active Start: January 09, 2025 Dr. Palma Walker MD Other Provider Active St art: January 09, 2025 Dr. Martin Bhatti , Other Provider Active Start: January 09, 2025 Dr. Alejo Hill MD Other Provider Active Star t: January 09, 2025 Dr. Orlando Lee MD Other Provider Active Sta rt: January 09, 2025 Team Status: Active Member Role/Relationship Status Dates Dr. Homer Bradford MD Primary Care Provider Active Start: January 10, 2025 Dr. Issa Chapin MD Emergency Provider Active Sta rt: January 10, 2025 Dr. Lauren Vela MD Admit Provider Active St art: January 10, 2025 Dr. Lauren Vela MD Other Provider Active St art: January 10, 2025 Dr. Peter Herbert MD Attending Provider Active Start: January 10, 2025 Dr. Peter Herbert MD Other Provider Active Sta rt: January 10, 2025 Dr. Luis Antonio Navarro DO Other Provider Active Start: January 10, 2025 Team Status: Active Member Role/Relationship Status Dates Dr. Homer Bradford MD Primary Care Provider Active Start: January 10, 2025 Dr. Issa Chapin MD Emergency Provider Active Sta rt: January 10, 2025 Dr. Lauren Vela MD Admit Provider Active St art: January 10, 2025 Dr. Lauren Vela MD Other Provider Active St art: January 10, 2025 Dr. Peter Herbert MD Other Provider Active Sta rt: January 10, 2025 Dr. Luis Antonio Navarro DO Referring Provider Active Start: January 10, 2025 Dr. Luis Antonio Navarro DO Other Provider Active Start: January 10, 2025 Dr. Dallin Christopher DO Attending Provider Active S tart: January 10, 2025 Team Status: Active Member Role/Relationship Status Dates Dr. Homer Bradford MD Primary Care Provider Active Start: January 10, 2025 Dr. Wilfredo Shelby MD Attending Provider Active S tart: January 10, 2025 Dr. Peter Herbert MD Referring Provider Active Start: January 10, 2025 Team Status: Active Member Role/Relationship Status Dates Dr. Homer Bradford MD Primary Care Provider Active Start: January 11, 2025 Dr. Issa Chapin MD Emergency Provider Active Sta rt: January 11, 2025 Dr. Lauren Vela MD Admit Provider Active St art: January 11, 2025 Dr. Lauren Vela MD Other Provider Active St art: January 11, 2025 Dr. Peter Herbert MD Attending Provider Active Start: January 11, 2025 Dr. Peter Herbert MD Other Provider Active Sta rt: January 11, 2025 Dr. Luis Antonio Navarro DO Other Provider Active Start: January 11, 2025 Team Status: Inactive Member Role/Relationship Status Dates Dr. Homer Bradford MD Primary Care Provider Active Start: January 15, 2025 Dr. Jennifer Alba MD Attending Provider Active Start: January 15, 2025 Team Status: Inactive Member Role/Relationship Status Dates Dr. Homer Bradford MD Primary Care Provider Active Start: 2025 End: February 14, 2025 Dr. Vijay Love MD Attending Provider Active Start: 2025 End: February 14, 2025 YADIRA Baumann Referring Provider Active Start: 2025 End: February 14, 2025 Team Status: Active Member Role/Relationship Status Dates Dr. Homer Bradford MD Primary Care Provider Active Start: 2025 Dr. Vijay Love MD Attending Provider Active Start: 2025 Dr. Vijay Love MD Other Provider Active Sta rt: 2025 YADIRA Baumann Referring Provider Active Start: 2025 Team Status: Inactive Member Role/Relationship Status Dates Dr. Homer Bradford MD Primary Care Provider Active Start: January 31, 2025 End: January 31, 2025 Dr. Homer Bradford MD Referring Provider Active Start: January 31, 2025 End: January 31, 2025 Taylor Julian NP, CATEGORY DEVELOPMENT MANAGER-C Attending Provider Active Start: January 31, 2025 End: January 31, 2025 Team Status: Active Member Role/Relationship Status Dates Dr. Homer Bradford MD Primary Care Provider Active Start: February 19, 2025 Dr. Vijay Love MD Attending Provider Active Start: February 19, 2025 YADIRA Baumann Referring Provider Active Start: February 19, 2025 Team Status: Inactive Member Role/Relationship Status Dates Dr. Homer Bradford MD Primary Care Provider Active Start: February 27, 2025 End: February 27, 2025 Dr. Homer Bradford MD Referring Provider Active Start: February 27, 2025 End: February 27, 2025 Dr. Jennifer Alba MD Attending Provider Active Start: February 27, 2025 End: February 27, 2025 Team Status: Inactive Member Role/Relationship Status Dates Dr. Homer Bradford MD Primary Care Provider Active Start: March 11, 2025 End: March 11, 2025 Dr. Homer Bradford MD Referring Provider Active Start: March 11, 2025 End: March 11, 2025 Dr. Jennifer Alba MD Attending Provider Active Start: March 11, 2025 End: March 11, 2025 Bottom Man Relationship Specialty Start Date End Date Homer Bradford MD [address] [place] [address] PCP - General Family Medicine 10/22/24 Mone Dupont APRN.WAFFLE MACHINE OPERATOR [address] [place] [id number] [facility] 12/17/24 Meagan Yusuf PA-C [address] [place], [place] [id number] [facility] 12/17/24 Team Status: Inactive Member Role/Relationship Status Dates Dr. Homer Bradford MD Primary Care Provider Active Start: January 08, 2025 End: January 11, 2025 Dr. Issa Chapin MD Emergency Provider Active Sta rt: January 08, 2025 End: January 11, 2025 Dr. Lauren Vela MD Admit Provider Active St art: January 08, 2025 End: January 11, 2025 Dr. Lauren Vela MD Other Provider Active St art: January 08, 2025 End: January 11, 2025 Dr. Peter Herbert MD Attending Provider Active Start: January 08, 2025 End: January 11, 2025 Dr. Luis Antonio Navarro DO Other Provider Active Start: January 08, 2025 End: January 11, 2025 Team Status: Active Member Role/Relationship Status Dates Dr. Homer Bradford MD Primary Care Provider Active Start: January 09, 2025 Dr. Issa Chapin MD Emergency Provider Active Sta rt: January 09, 2025 Dr. Lauren Vela MD Admit Provider Active St art: January 09, 2025 Dr. Lauren Vela MD Other Provider Active St art: January 09, 2025 Dr. Luis Antonio Navarro , Attending Provider Active Start: January 09, 2025 Dr. Luis Antonio Navarro , DO Other Provider Active Start: January 09, 2025 Dr. Elijah Blake MD Other Provider Active Start: January 09, 2025 Dr. Colby Williamson MD Other Provider Active Start: January 09, 2025 Dr. Shahram Sarmiento MD Other Provider Active Star t: January 09, 2025 Dr. Dallin Christopher , Other Provider Active Start : January 09, 2025 Dr. Matt Tran MD Other Provider Active Sta rt: January 09, 2025 Dr. Matt Rodrigues MD Other Provider Active St art: January 09, 2025 Dr. Leon Santos MD Other Provider Active S tart: January 09, 2025 Dr. Lalita Lozano MD Other Provider Active Start: January 09, 2025 Dr. Kyle Puri MD Other Provider Active Start : January 09, 2025 Dr. Lenny Lucia MD Other Provider Active Start: January 09, 2025 Dr. Jovani Wynn MD Other Provider Active Start : January 09, 2025 Dr. Radha Soliman MD Other Provider Active Star t: January 09, 2025 Dr. Oziel Keating MD Other Provider Active Sta rt: January 09, 2025 Dr. Mara Lamb MD Other Provider Active Sta rt: January 09, 2025 Dr. Valentino Woods MD Other Provider Active Star t: January 09, 2025 Dr. Estuardo Villegas MD Other Provider Active St art: January 09, 2025 Dr. Raul Han MD Other Provider Active Star t: January 09, 2025 Dr. Eleazar Barber , Other Provider Active St art: January 09, 2025 Dr. Deepak Tellez MD Other Provider Active Start: January 09, 2025 Dr. Palma Walker MD Other Provider Active St art: January 09, 2025 Dr. Martin Bhatti DO Other Provider Active Start: January 09, 2025 Dr. Alejo Hill MD Other Provider Active Star t: January 09, 2025 Dr. Orlando Lee MD Other Provider Active Sta rt: January 09, 2025 Team Status: Active Member Role/Relationship Status Dates Dr. Homer Bradford MD Primary Care Provider Active Start: January 10, 2025 Dr. Issa Chapin MD Emergency Provider Active Sta rt: January 10, 2025 Dr. Lauren Vela MD Admit Provider Active St art: January 10, 2025 Dr. Lauren Vela MD Other Provider Active St art: January 10, 2025 Dr. Peter Herbert MD Attending Provider Active Start: January 10, 2025 Dr. Peter Herbert MD Other Provider Active Sta rt: January 10, 2025 Dr. Luis Antonio Navarro DO Other Provider Active Start: January 10, 2025 Team Status: Active Member Role/Relationship Status Dates Dr. Homer Bradford MD Primary Care Provider Active Start: January 10, 2025 Dr. Issa Chapin MD Emergency Provider Active Sta rt: January 10, 2025 Dr. Lauren Vela MD Admit Provider Active St art: January 10, 2025 Dr. Lauren Vela MD Other Provider Active St art: January 10, 2025 Dr. Peter Herbert MD Other Provider Active Sta rt: January 10, 2025 Dr. Luis Antonio Navarro DO Referring Provider Active Start: January 10, 2025 Dr. Luis Antonio Navarro DO Other Provider Active Start: January 10, 2025 Dr. Dallin Christopher DO Attending Provider Active S tart: January 10, 2025 Team Status: Active Member Role/Relationship Status Dates Dr. Homer Bradford MD Primary Care Provider Active Start: January 10, 2025 Dr. Wilfredo Shelby MD Attending Provider Active S tart: January 10, 2025 Dr. Peter Herbert MD Referring Provider Active Start: January 10, 2025 Team Status: Active Member Role/Relationship Status Dates Dr. Homer Bradford MD Primary Care Provider Active Start: January 11, 2025 Dr. Issa Chapin MD Emergency Provider Active Sta rt: January 11, 2025 Dr. Lauren Vela MD Admit Provider Active St art: January 11, 2025 Dr. Lauren Vela MD Other Provider Active St art: January 11, 2025 Dr. Peter Herbert MD Attending Provider Active Start: January 11, 2025 Dr. Peter Herbert MD Other Provider Active Sta rt: January 11, 2025 Dr. Luis Antonio Navarro DO Other Provider Active Start: January 11, 2025 Team Status: Inactive Member Role/Relationship Status Dates Dr. Homer Bradford MD Primary Care Provider Active Start: January 15, 2025 Dr. Jennifer Alba MD Attending Provider Active Start: January 15, 2025 Team Status: Inactive Member Role/Relationship Status Dates Dr. Homer Bradford MD Primary Care Provider Active Start: 2025 End: February 14, 2025 Dr. Vijay Love MD Attending Provider Active Start: 2025 End: February 14, 2025 YADIRA Baumann Referring Provider Active Start: 2025 End: February 14, 2025 Team Status: Active Member Role/Relationship Status Dates Dr. Homer Bradford MD Primary Care Provider Active Start: 2025 Dr. Vijay Love MD Attending Provider Active Start: 2025 Dr. Vijay Love MD Other Provider Active Sta rt: 2025 YADIRA Baumann Referring Provider Active Start: 2025 Team Status: Inactive Member Role/Relationship Status Dates Dr. Homer Bradford MD Primary Care Provider Active Start: January 31, 2025 End: January 31, 2025 Dr. Homer Bradford MD Referring Provider Active Start: January 31, 2025 End: January 31, 2025 Taylor Julian NP, CATEGORY DEVELOPMENT MANAGER-C Attending Provider Active Start: January 31, 2025 End: January 31, 2025 Team Status: Inactive Member Role/Relationship Status Dates Dr. Homer Bradford MD Primary Care Provider Active Start: February 19, 2025 End: March 17, 2025 Dr. Vijay Love MD Attending Provider Active Start: February 19, 2025 End: March 17, 2025 YADIRA Baumann Referring Provider Active Start: February 19, 2025 End: March 17, 2025 Team Status: Inactive Member Role/Relationship Status Dates Dr. Homer Bradford MD Primary Care Provider Active Start: February 27, 2025 End: February 27, 2025 Dr. Homer Bradford MD Referring Provider Active Start: February 27, 2025 End: February 27, 2025 Dr. Jennifer Alba MD Attending Provider Active Start: February 27, 2025 End: February 27, 2025 Team Status: Inactive Member Role/Relationship Status Dates Dr. Homer Bradford MD Primary Care Provider Active Start: March 11, 2025 End: March 11, 2025 Dr. Homer Bradford MD Referring Provider Active Start: March 11, 2025 End: March 11, 2025 Dr. Jennifer Alba MD Attending Provider Active Start: March 11, 2025 End: March 11, 2025 Bottom Man Relationship Specialty Start Date End Date Homer Bradford MD [address] [place] [id number] PCP - General Family Medicine 10/22/24 Mone Dupont, JACKIE.WAFFLE MACHINE OPERATOR [address] [place] [id number] [employer] [facility] 12/17/24 Meagan Yusuf PA-C [address] [place] [id number] [employer] [facility] 12/17/24 Bottom Man Relationship Specialty Start Date End Date Homer Bradford MD [address] [place] [id number] PCP - General Family Medicine 10/22/24 Mone Dupont, JACKIE.WAFFLE MACHINE OPERATOR [address] [place] [id number] [employer] [facility] 12/17/24 Meagan Yusuf PA-C [address] [place] [id number] [employer] [facility] 12/17/24 Team Status: Active Member Role/Relationship Status Dates Dr. Homer Bradford MD Primary care physician Active Team Status: Active Member Role/Relationship Status Dates Broderick Minor Primary care physician Active S tart: January 07, 2012 Team Status: Inactive Member Role/Relationship Status Dates Dr. Homer Bradford MD Primary care physician Active Start: January 08, 2025 End: January 11, 2025 Dr. Issa Chapin MD Emergency Department Physician Active Start: January 08, 2025 End: January 11, 2025 Dr. Lauren Vela MD Admitting physician Active Start: January 08, 2025 End: January 11, 2025 Dr. Lauren Vela MD Nurse Practitioner Active Start: January 08, 2025 End: January 11, 2025 Dr. Peter Herbert MD Attending physician Active Start: January 08, 2025 End: January 11, 2025 Dr. Luis Antonio Navarro DO Nurse Practitioner Active Start: January 08 End: January 11, 2025 Team Status: Active Member Role/Relationship Status Dates Dr. Homer Bradford MD Primary care physician Active Start: January 09, 2025 Dr. Issa Chapin MD Emergency Department Physician Active Start: January 09, 2025 Dr. Lauren Vela MD Admitting physician Active Start: January 09, 2025 Dr. Lauren Vela MD Nurse Practitioner Active Start: January 09, 2025 Dr. Luis Antonio Navarro DO Attending physician Activ e Start: January 09, 2025 Dr. Luis Antonio Navarro DO Nurse Practitioner Active Start: January 09, 2025 Dr. Elijah Blake MD Nurse Practitioner Active Start: January 09, 2025 Dr. Colby Williamson MD Nurse Practitioner Active Sta rt: January 09, 2025 Dr. Shahram Sarmiento MD Nurse Practitioner Active Start: January 09, 2025 Dr. Dallin Christopher DO Nurse Practitioner Active S tart: January 09, 2025 Dr. Matt Tran MD Nurse Practitioner Active Start: January 09, 2025 Dr. Matt Rodrigues MD Nurse Practitioner Active Start: January 09, 2025 Dr. Leon Santos MD Nurse Practitioner Active Start: January 09, 2025 Dr. Lalita Lozano MD Nurse Practitioner Active Start: January 09, 2025 Dr. Kyle Puri MD Nurse Practitioner Active S tart: January 09, 2025 Dr. Lenny Lucia MD Nurse Practitioner Active St art: January 09, 2025 Dr. Jovani Wynn MD Nurse Practitioner Active S tart: January 09, 2025 Dr. Radha Soliman MD Nurse Practitioner Active Start: January 09, 2025 Dr. Oziel Keating MD Nurse Practitioner Active Start: January 09, 2025 Dr. Mara Lamb MD Nurse Practitioner Active Start: January 09, 2025 Dr. Valentino Woods MD Nurse Practitioner Active Start: January 09, 2025 Dr. Estuardo Villegas MD Nurse Practitioner Active Start: January 09, 2025 Dr. Raul Han MD Nurse Practitioner Active Start: January 09, 2025 Dr. Eleazar Barber DO Nurse Practitioner Active Start: January 09, 2025 Dr. Deepak Tellez MD Nurse Practitioner Active St art: January 09, 2025 Dr. Palma Walker MD Nurse Practitioner Active Start: January 09, 2025 Dr. Martin Bhatti DO Nurse Practitioner Active Start: January 09, 2025 Dr. Alejo Hill MD Nurse Practitioner Active Start: January 09, 2025 Dr. Orlando Lee MD Nurse Practitioner Active Start: January 09, 2025 Team Status: Active Member Role/Relationship Status Dates Dr. Homer Bradford MD Primary care physician Active Start: January 10, 2025 Dr. Issa Chapin MD Emergency Department Physician Active Start: January 10, 2025 Dr. Lauren Vela MD Admitting physician Active Start: January 10, 2025 Dr. Lauren Vela MD Nurse Practitioner Active Start: January 10, 2025 Dr. Peter Herbert MD Attending physician Active Start: January 10, 2025 Dr. Peter Herbert MD Nurse Practitioner Active Start: January 10, 2025 Dr. Luis Antonio Navarro DO Nurse Practitioner Active Start: January 10 Team Status: Active Member Role/Relationship Status Dates Dr. Homer Bradford MD Primary care physician Active Start: January 10, 2025 Dr. Issa Chapin MD Emergency Department Physician Active Start: January 10, 2025 Dr. Lauren Vela MD Admitting physician Active Start: January 10, 2025 Dr. Lauren Vela MD Nurse Practitioner Active Start: January 10, 2025 Dr. Peter Herbert MD Nurse Practitioner Active Start: January 10, 2025 Dr. Luis Antonio Navarro DO Referring Provider Active Start: January 10 Dr. Luis Antonio Navarro DO Nurse Practitioner Active Start: January 10 Dr. Dallin Christopher DO Attending physician Active Start: January 10, 2025 Team Status: Active Member Role/Relationship Status Dates Dr. Homer Bradford MD Primary care physician Active Start: January 10, 2025 Dr. Wilfredo Sehlby MD Attending physician Active Start: January 10, 2025 Dr. Peter Herbert MD Referring Provider Active Start: January 10, 2025 Team Status: Active Member Role/Relationship Status Dates Dr. Homer Bradford MD Primary care physician Active Start: January 11, 2025 Dr. Issa Chapin MD Emergency Department Physician Active Start: January 11, 2025 Dr. Lauren Vela MD Admitting physician Active Start: January 11, 2025 Dr. Lauren Vela MD Nurse Practitioner Active Start: January 11, 2025 Dr. Peter Herbert MD Attending physician Active Start: January 11, 2025 Dr. Peter Herbert MD Nurse Practitioner Active Start: January 11, 2025 Dr. Luis Antonio Navarro DO Nurse Practitioner Active Start: January 11 Team Status: Inactive Member Role/Relationship Status Dates Dr. Homer Bradford MD Primary care physician Active Start: January 15, 2025 Dr. Jennifer Alba MD Attending physician Active Start: January 15, 2025 Team Status: Inactive Member Role/Relationship Status Dates Dr. Homer Bradford MD Primary care physician Active Start: 2025 End: February 14, 2025 Dr. Vijay Love MD Attending physician Active Start: 2025 End: February 14, 2025 YADIRA Baumann Referring Provider Active Start: 2025 End: February 14, 2025 Team Status: Active Member Role/Relationship Status Dates Dr. Homer Bradford MD Primary care physician Active Start: 2025 Dr. Vijay Love MD Attending physician Active Start: 2025 Dr. Vijay Love MD Nurse Practitioner Active Start: 2025 YADIRA Baumann Referring Provider Active Start: 2025 Team Status: Inactive Member Role/Relationship Status Dates Dr. Homer Bradford MD Primary care physician Active Start: January 31, 2025 End: January 31, 2025 Dr. Homer Bradford MD Referring Provider Active Start: January 31, 2025 End: January 31, 2025 Taylor Julian NP CATEGORY DEVELOPMENT MANAGER-C Attending physician Active Start: January 31, 2025 End: January 31, 2025 Team Status: Inactive Member Role/Relationship Status Dates Dr. Homer Bradford MD Primary care physician Active Start: February 19, 2025 End: March 17, 2025 Dr. Vijay Love MD Attending physician Active Start: February 19, 2025 End: March 17, 2025 YADIRA Baumann Referring Provider Active Start: February 19, 2025 End: March 17, 2025 Team Status: Inactive Member Role/Relationship Status Dates Dr. Homer Bradford MD Primary care physician Active Start: February 27, 2025 End: February 27, 2025 Dr. Homer Bradford MD Referring Provider Active Start: February 27, 2025 End: February 27, 2025 Dr. Jennifer Alba MD Attending physician Active Start: February 27, 2025 End: February 27, 2025 Team Status: Inactive Member Role/Relationship Status Dates Dr. Homer Bradford MD Primary care physician Active Start: March 11, 2025 End: March 11, 2025 Dr. Homer Bradford MD Referring Provider Active Start: March 11, 2025 End: March 11, 2025 Dr. Jennifer Alba MD Attending physician Active Start: March 11, 2025 End: March 11, 2025 Team Status: Inactive Member Role/Relationship Status Dates Dr. Homer Bradford MD Primary care physician Active Start: March 19, 2025 End: April 16, 2025 Dr. Vijay Love MD Attending physician Active Start: March 19, 2025 End: April 16, 2025 Meagan MAY PA Referring Provider Active Start: March 19, 2025 End: April 16, 2025 Team Status: Inactive Member Role/Relationship Status Dates Dr. Homer Bradford MD Primary care physician Active Start: January 15, 2025 Dr. Jennifer Alba MD Attending physician Active Start: January 15, 2025 Team Status: Inactive Member Role/Relationship Status Dates Dr. Homer Bradford MD Primary care physician Active Start: 2025 End: February 14, 2025 Dr. Vijay Love MD Attending physician Active Start: 2025 End: February 14, 2025 YADIRA Baumann Referring Provider Active Start: 2025 End: February 14, 2025 Team Status: Active Member Role/Relationship Status Dates Dr. Homer Bradford MD Primary care physician Active Start: 2025 Dr. Vijay Love MD Attending physician Active Start: 2025 Dr. Vijay Love MD Nurse Practitioner Active Start: 2025 YADIRA Baumann Referring Provider Active Start: 2025 Team Status: Inactive Member Role/Relationship Status Dates Dr. Homer Bradford MD Primary care physician Active Start: January 31, 2025 End: January 31, 2025 Dr. Homer Bradford MD Referring Provider Active Start: January 31, 2025 End: January 31, 2025 Taylor Julian CATEGORY DEVELOPMENT MANAGER, CATEGORY DEVELOPMENT MANAGER-C Attending physician Active Start: January 31, 2025 End: January 31, 2025 Team Status: Inactive Member Role/Relationship Status Dates Dr. Homer Bradford MD Primary care physician Active Start: February 19, 2025 End: March 17, 2025 Dr. Vijay Love MD Attending physician Active Start: February 19, 2025 End: March 17, 2025 YADIRA Baumann Referring Provider Active Start: February 19, 2025 End: March 17, 2025 Team Status: Inactive Member Role/Relationship Status Dates Dr. Homer Bradford MD Primary care physician Active Start: February 27, 2025 End: February 27, 2025 Dr. Homer Bradford MD Referring Provider Active Start: February 27, 2025 End: February 27, 2025 Dr. Jennifer Alba MD Attending physician Active Start: February 27, 2025 End: February 27, 2025 Team Status: Inactive Member Role/Relationship Status Dates Dr. Homer Bradford MD Primary care physician Active Start: March 11, 2025 End: March 11, 2025 Dr. Homer Bradford MD Referring Provider Active Start: March 11, 2025 End: March 11, 2025 Dr. Jennifer Alba MD Attending physician Active Start: March 11, 2025 End: March 11, 2025 Team Status: Inactive Member Role/Relationship Status Dates Dr. Homer Bradford MD Primary care physician Active Start: March 19, 2025 End: April 16, 2025 Dr. Vijay Love MD Attending physician Active Start: March 19, 2025 End: April 16, 2025 Meagan MAY, PA Referring Provider Active Start: March 19, 2025 End: April 16, 2025 Team Status: Inactive Member Role/Relationship Status Dates Dr. Homer Bradford MD Primary care physician Active Start: April 30, 2025 End: April 30, 2025 Dr. Ortiz Pinto MD Attending physician Active Start: April 30, 2025 End: April 30, 2025 Dr. Ortiz Pinto MD Emergency Depart ment Physician Active Start: April 30, 2025 End: April 30, 2025 Goals (unrecognized section and content) Goals may be documented in a n alternate section No data available for this sectionGoals may be documented in an alternate sectionGoals may be documented in an alternate sectionGoals may be documented in an alternate sectionGoals may be documented in an alternate sectionGoals may be documented in an alternate sectionGoals may be documented in an alternate sectionGoals may be documented in an alternate sectionGoals may be documented in an alternate section FOR RECORDS PERTAINING TO PATIENTS WHO ARE OR HAVE BEEN ENROLLED IN A CHEMICAL DEPENDENCY/SUBSTANCEABUSE PROGRAM, SOME INFORMATION MAY BE OMITTED. This clinical summary was aggregated from multiple sources. Caution should be exercised in using it in the provision of clinical care. This summary normalizes information from multiple sources, and as a consequence, information in this document may materially change the coding, format and clinical context of patient data. In addition, data may be omitted in some cases. CLINICAL DECISIONS SHOULD BE BASED ON THE PRIMARY CLINICAL RECORDS. [employer] provides no warranty or guarantee of the accuracy or completeness of information in this document.
[2025-05-25] VITALS (12 sets, daily range): BP systolic 90–131; BP diastolic 50–75; PULSE 78–99; RESP 17–24; TEMP 36.4–36.8; O2SAT 91–96; BMI 42.6; BMI 42.8
[2025-05-25] MEDS: Potassium Chloride Oral Tablet 20 MEQ 40 MEQ PO (01:09)
[2025-05-25] MEDS: 0.9% Saline Lock 10 ML Syringe IV ×3 (05:06→21:15)
[2025-05-25 07:20] LABS: Hematocrit 46.7 % (37-47); Hemoglobin 15.1 g/dL (12.0-15.0); Immature Granulocytes Count 0.010 X10^3/uL (0.0-0.0); Mean Corp Hgb Conc 32.3 g/dL (32-36); Mean Corpuscular Volume 94.7 fL (81-99); Mean Platelet Vol. 10.8 fl (6.2-12.0); NRBC Flagged by Analyzer 0 % (0-5); Platelet Count 227 K/mm3 (150-450); RBC Distribution Width CV 14.3 % (11.6-14.6); RBC Distribution Width SD 50.3 fl (35.1-43.9); Red Blood Count 4.93 M/mm3 (4.2-5.4); White Blood Count 6.9 K/mm3 (4.4-11.0)
[2025-05-25 07:58] LABS: AST(SGOT) 21 U/L (<=31); Alanine Aminotransfer ALT/SGPT 13 U/L (<=34); Albumin, Serum 3.6 g/dL (3.4-4.8); Alkaline Phosphatase 83 U/L (35-104); Anion Gap 10 (5-15); BUN 14 mg/dL (4-19); BUN/Creat Ratio 10.1 RATIO (10-20); Calcium,Total 9.0 mg/dL (7.6-11.0); Carbon Dioxide 25.7 mmol/L (21.0-32.0); Chloride 105 mmol/L (98-108); Estimated Creatinine Clearance 46.64 ml/min (50-250); Globulin 2.4 g/dL (2.2-4.2); Glucose 125 mg/dL (70-99); Magnesium 2.0 mg/dL (1.5-2.2); Potassium 3.9 mmol/L (3.3-5.1)
[2025-05-25] MEDS: Senna/Docusate Sodium 1 Tablet 2 TABLET PO (08:17)
[2025-05-25 08:27] LABS: Prothrombin Time (Protime)PT. 13.5 SECONDS (11.7-14.9)
[2025-05-25] MEDS: APIXABAN 5 MG TABLET PO (10:11)
--- NOTE | 2025-05-25 11:45 | CASEMGMT ---
Social Work Primary Care Doctor: Dr. Bradford Speciality doctors: Dr. Christopher-pulmonology, Dr. Contreras- psychiatry, Ch[place] Bermudez is making a referral for a reproductive surgeon, Insurance: [employer] Medicare with prescription benefits Pharmacy: Patient utilizes [facility]. Advanced directives: Patient is not interested in completing. LNOK:. Patient has 3 children but only talks with her son. Living Situation: Patient is residing at [facility]. Patient reported she called [facility] and informed them she is in the hospital. She reported they are going to hold her bed.She reported she does not want oxygen when she discharges. She reported she has a nebulizer but does not have medication for it.? ADL's/Prior level of functioning: patient uses a rollator. Transportation: Patient uses [facility]. Chica Bermudez pays for it. DME: rollator and nebulizer care home/home health history: [facility] kathleen previously. no HH Assessment: Patient is residing at [facility]. Patient reported she called [facility] and informed them she is in the hospital. She reported they are going to hold her bed.She reported she does not want oxygen when she discharges. She reported she has a nebulizer but does not have medication for it.?Patient uses [facility]. Chica Bermudez pays for it. Patient previously applied for section 8 housing. PLAN: Patient plans on returning to [facility]. Social Work to continue to follow. DIANA Rai
--- NOTE | 2025-05-25 11:58 | CASEMGMT ---
Social Work SW spoke with the patient. Patient receives food stamps. Patient reported she knows about food pantries in the area and [employer]. Patient reported she uses [facility] for transportation and Chica Bermudez pays for it. DIANA Rai
--- NOTE | 2025-05-25 13:54 | PN_ITS ---
Subjective Subjective Patient seen and examined with her nurse by her bedside. She had no active complaints. She felt her breathing had improved. She is coughing and the cough is productive. She denied any chest pain or palpitations, dizziness, nausea or vomiting or any other such symptoms. Review of systems otherwise negative. Objective Data Objective Data Vital Signs: Vital Signs Temp Pulse Resp BP Pulse Ox O2 Del Method O2 Flow Rate 98.3 F 78 20 H 98/54 L 91 Room Air 5 05/25/25 08:19 05/25/25 11:10 05/25/25 11:10 05/25/25 08:19 05/25/25 08:20 05/25/25 08:20 05/25/25 12:42 Oxygen Flow Rate (L/min) 5 Oxygen Delivery Method Room Air Weight: 233 lb 0.458 oz Body Mass Index (BMI) 42.8 Intake & Output: Intake and Output for Last 24 Hours 05/23/25 05/24/25 05/25/25 23:59 23:59 23:59 Intake Total 1000 / 1000 Balance 1000 / 1000 Lab / Micro Data 05/25/25 06:55 05/25/25 06:55 Labs: Laboratory Results - last 24 hr 05/24/25 14:33: WBC 7.5, RBC 4.98, Hgb 15.6 H, Hct 46.2, MCV 92.8, MCH 31.3, MCHC 33.8, RDW Std Deviation 47.8 H, RDW Coeff of Robert 14.0, Plt Count 238, MPV 11.3, Immature Gran % (Auto) 0.100, Neut % (Auto) 61.8, Lymph % (Auto) 25.8, Arthur % (Auto) 9.1, Eos % (Auto) 2.7, Baso % (Auto) 0.5, Absolute Neuts (auto) 4.6, Absolute Lymphs (auto) 1.94, Nucleated RBC % 0, PT 13.6, INR 1.0, APTT 27.4, D-Dimer Quant (PE/DVT) 1.43 H*, Sodium 141, Potassium 3.1 L, Chloride 104, Carbon Dioxide 25.4, Anion Gap 12, BUN 16, Creatinine 1.53 H, Estim Creat Clear Calc 43.53 L, Est GFR (MDRD) Non-Af 38 L, BUN/Creatinine Ratio 10.5, Glucose 104 H, Calcium 9.1, Troponin T High Sens 19 H, NT pro BNP II 86 05/24/25 15:43: Lactic Acid 1.1 05/24/25 17:02: Urine Color Yellow, Urine Clarity Clear, Urine pH 6.0, Ur Specific [place] 1.015, Urine Protein 15 H, Urine Glucose (UA) Normal, Urine Ketones Negative, Urine Occult Blood Negative, Urine Nitrite Negative, Urine Bilirubin Negative, Urine Urobilinogen Normal, Ur Leukocyte Esterase Negative, Urine RBC 0 SEEN, Urine WBC 0-5 SEEN, Ur Squamous Epith Cells 0-5 SEEN, Urine Bacteria 1+, Hyaline Casts 0-5 SEEN, Urine Mucus 0 SEEN 05/24/25 17:09: Troponin T Hi Sens 2 Hr 18 H 05/24/25 19:05: Troponin T Hi Sens 4Hr 19 H 05/25/25 06:55: WBC 6.9, RBC 4.93, Hgb 15.1 H, Hct 46.7, MCV 94.7, MCH 30.6, MCHC 32.3, RDW Std Deviation 50.3 H, RDW Coeff of Robert 14.3, Plt Count 227, MPV 10.8, Immature Gran % (Auto) 0.100, Neut % (Auto) 81.2 H, Lymph % (Auto) 12.4 L, Arthur % (Auto) 4.1, Eos % (Auto) 1.9, Baso % (Auto) 0.3, Absolute Neuts (auto) 5.6, Absolute Lymphs (auto) 0.86, Nucleated RBC % 0, PT 13.5, INR 1.0, Sodium 141, Potassium 3.9, Chloride 105, Carbon Dioxide 25.7, Anion Gap 10, BUN 14, C reatinine 1.41 H, Estim Creat Clear Calc 46.64 L, Est GFR (MDRD) Non-Af 42 L, BUN/Creatinine Ratio 10.1, Glucose 125 H, Calcium 9.0, Phosphorus 2.2 L, Magnesium 2.0, Total Bilirubin 0.48, AST 21, ALT 13, Alkaline Phosphatase 83, Total Protein 6.0, Albumin 3.6, Globulin 2.4, Albumin/Globulin Ratio 1.5, TSH 1.300 Micro: Microbiology 05/25/25 00:45 Mucosa - Nasopharyngeal Respiratory Panel (PCR) - Final 05/24/25 15:56 Mucosa - Nose SARS-CoV-2, Influenza & RSV (PCR) - Final Radiography Diagnostic Testing: Radiology Impression Chest X-Ray 05/24/25 15:23 IMPRESSION: Small-moderate right pleural effusion/atelectasis, no significant interval change. Reading Location: [facility] Chest CTA 05/24/25 17:15 IMPRESSION: 1. No evidence of pulmonary embolism. 2. Spiculated 1.6 x 1.3 cm right upper lobe pulmonary mass, likely previously biopsied. 3. Dilated main pulmonary artery compatible with pulmonary arterial hypertension. 4. Moderate right pleural effusion. Diffuse pulmonary vascular congestion. Reading Location: [facility] Physical Exam Const alert and oriented x3 Constitutional Narrative: frail, weak. HEENT normocephalic, head/scalp atraumatic, moist oral mucous membranes and oropharynx normal Eyes EOMs intact bilaterally Neck supple and no JVD General: trachea midline Lymph Lymphatic: no lymphedema noted Resp Resp Narrative: Mildly diminished breath sounds bibasilarly. Minimal crackles auscultated. On 5 L of oxygen by nasal cannula. Cardio regular rate, regular rhythm, S1 normal heart sound, S2 normal heart sound and no murmurs GI normal to inspection, nondistended, normoactive bowel sounds, soft to palpation, non-tender and non-distended Extremity normal capillary refill, no clubbing, cyanosis or edema and no calf tenderness General Extremity: no tenderness to palpation of joints or extremities Skin General Skin Exam: no breakdown Neuro no focal motor deficits and no sensory deficits noted Motor Exam: general weakness Psych thought process normal and cooperative Appearance: appropriate Assessment & Plan Assessment/Plan (1) Pleural effusion on right: (2) Hypoxia: (3) Acute exacerbation of COPD with asthma: PLAN: Plan #Acute hypoxic respiratory failure due to COPD exacerbation and right-sided pleural effusion * Patient on 5 L of oxygen. Has been down to 3 L of oxygen but at time of review was up to 5 L. Does not wear oxygen at home. * CTA chest on admission showed no evidence of PE and showed a spiculated 1.6 x 1.3 cm right upper lobe pulmonary mass which had been previously biopsied and dilated main pulmonary artery compatible with pulmonary arterial hypertension and moderate right pleural effusion with diffuse pulmonary vascular congestion. * Pathology results from March 28, 2023 did show a biopsy of the right upper lung mass which showed atypical cells but negative for malignancy. * Currently on IV Solu-Medrol 40 mg Q8. COVID, RSV and flu are negative. Respiratory panel was also negative. * Thoracentesis ordered and to be done on Tuesday. Currently on PO Levaquin. #Right-sided pleural effusion: As above #Elevated D-dimer: CTA of the chest was negative for any evidence of PE. Hypokalemia: Resolved #Right upper lobe pulmonary nodule: As above. Has been biopsied and this was done back in March 2023 and it showed no evidence of malignancy. Follow-up with pulmonology on outpatient basis #History of atrial flutter: On Eliquis. Will hold Eliquis for now she is due for thoracentesis on Tuesday. #History of recurrent UTI and overactive bladder: On Gemtesa #CKD stage IIIb: stable. Cr at baseline. #GERD: On PPI #History of TIA: On aspirin and Eliquis #Benign essential hypertension: #Hyperlipidemia: On statin #Depression and anxiety: On Seroquel and lorazepam as well as Celexa #Morbid obesity: BMI is 42.6. Complicates acute care, expected recovery and prognosis #Nicotine dependence: counseled to quit. Nicotine patch prn DVT porphylaxis; Hold eliquis as she is for thoracentesis on Tuesday. Place on heparin drip in the interim COde status: full code Charges/Coding Visit Charges Inpatient E&M: 43946 Subs Hosp L2
[2025-05-25 14:47] LABS: Hematocrit 46.1 % (37-47); Hemoglobin 15.0 g/dL (12.0-15.0); Immature Granulocytes Count 0.010 X10^3/uL (0.0-0.0); Mean Corp Hgb Conc 32.5 g/dL (32-36); Mean Corpuscular Volume 94.7 fL (81-99); Mean Platelet Vol. 10.9 fl (6.2-12.0); NRBC Flagged by Analyzer 0 % (0-5); POSITIVE DIFFERENTIAL YES; Platelet Count 235 K/mm3 (150-450); RBC Distribution Width CV 14.1 % (11.6-14.6); RBC Distribution Width SD 48.8 fl (35.1-43.9); Red Blood Count 4.87 M/mm3 (4.2-5.4); White Blood Count 6.9 K/mm3 (4.4-11.0)
[2025-05-25 15:07] LABS: Prothrombin Time (Protime)PT. 14.9 SECONDS (11.7-14.9)
[2025-05-25 15:08] LABS: Partial Thromboplast Time 28.2 Seconds (24.1-36.2)
[2025-05-25] MEDS: HEPARIN/D5w 25,000 UNITS 25,000 UNITS/250 ML IV.SOLN. 15.9 UNITS CONT INF (22:01)
--- NOTE | 2025-05-25 23:05 | NURSING ---
05/25/25 @ 2200: Heparin drip initiated per order. based on weight of 105.7 kg. baseline coagulation labs noted, PTT=28.2, INR-1.2, PT=14.9. Heparin drip currently infusing @ 1500 units/hr. PTT ordered for 6 hours or 0400.
[2025-05-26] VITALS (11 sets, daily range): BP systolic 93–115; BP diastolic 54–94; PULSE 89–104; RESP 16–22; TEMP 36.5–36.7; O2SAT 88–92; BMI 43.0
[2025-05-26 04:02] LABS: Hematocrit 44.0 % (37-47); Hemoglobin 14.6 g/dL (12.0-15.0); Immature Granulocytes Count 0.070 X10^3/uL (0.0-0.0); Mean Corp Hgb Conc 33.2 g/dL (32-36); Mean Corpuscular Volume 94.2 fL (81-99); Mean Platelet Vol. 10.9 fl (6.2-12.0); NRBC Flagged by Analyzer 0 % (0-5); POSITIVE DIFFERENTIAL YES; Platelet Count 230 K/mm3 (150-450); RBC Distribution Width CV 14.0 % (11.6-14.6); RBC Distribution Width SD 48.8 fl (35.1-43.9); Red Blood Count 4.67 M/mm3 (4.2-5.4); White Blood Count 13.4 K/mm3 (4.4-11.0)
[2025-05-26 04:36] LABS: Anion Gap 11 (5-15); BUN 24 mg/dL (4-19); BUN/Creat Ratio 15.8 RATIO (10-20); Calcium,Total 9.9 mg/dL (7.6-11.0); Carbon Dioxide 23.4 mmol/L (21.0-32.0); Chloride 103 mmol/L (98-108); Estimated Creatinine Clearance 42.98 ml/min (50-250); Glucose 209 mg/dL (70-99); Potassium 3.8 mmol/L (3.3-5.1)
[2025-05-26 05:02] LABS: Partial Thromboplast Time 219.1 Seconds (24.1-36.2)
[2025-05-26] MEDS: 0.9% Saline Lock 10 ML Syringe IV ×3 (05:13→20:32)
--- NOTE | 2025-05-26 06:51 | NURSING ---
0500: PTT RESULT OF 219 NOTED. HEPARIN DRIP STOPPED AT THIS TIME PER NOMOGRAM X 2 HOURS. WILL RESUME AT 0700 (-3 UNITS/HR OR 1200 UNITS)
--- NOTE | 2025-05-26 07:36 | NURSING ---
0700: Heparin drip resumed (-3). Infusing @ 12 units/hr. repeat PTT ordered for 1300
--- NOTE | 2025-05-26 10:34 | PCM.PROGNOTE ---
Subjective Subjective Patient seen and examined with her nurse by her bedside. She complained of coughing.. She denied any feeling short of breath. Review of systems is otherwise negative. She remains on 3L of oxygen. Her diuretics were held last night and this morning due to her BP is running low. Objective Data Objective Data Vital Signs: Vital Signs Temp Pulse Resp BP Pulse Ox O2 Del Method O2 Flow Rate 98.1 F 102 H 18 101/56 L 92 Nasal Cannula 3 05/26/25 09:10 05/26/25 09:10 05/26/25 09:10 05/26/25 09:10 05/26/25 09:10 05/26/25 09:10 05/26/25 09:10 Oxygen Flow Rate (L/min) 3 Oxygen Delivery Method Nasal Cannula Weight: 233 lb 14.567 oz Body Mass Index (BMI) 43.0 Intake & Output: Intake and Output for Last 24 Hours 05/24/25 05/25/25 05/26/25 23:59 23:59 23:59 Intake Total 1000 / 1000 111.83 / 111.83 Balance 1000 / 1000 111.83 / 111.83 Lab / Micro Data 05/26/25 03:38 05/26/25 03:38 Labs: Laboratory Results - last 24 hr 05/25/25 14:29: WBC 6.9, RBC 4.87, Hgb 15.0, Hct 46.1, MCV 94.7, MCH 30.8, MCHC 32.5, RDW Std Deviation 48.8 H, RDW Coeff of Robert 14.1, Plt Count 235, MPV 10.9, Immature Gran % (Auto) 0.100, Neut % (Auto) 92.6 H, Lymph % (Auto) 5.5 L, Ransom % (Auto) 1.7, Eos % (Auto) 0.0, Baso % (Auto) 0.1, Absolute Neuts (auto) 6.4, Absolute Lymphs (auto) 0.38 L, Nucleated RBC % 0, PT 14.9, INR 1.2, APTT 28.2 05/26/25 03:38: WBC 13.4 H, RBC 4.67, Hgb 14.6, Hct 44.0, MCV 94.2, MCH 31.3, MCHC 33.2, RDW Std Deviation 48.8 H, RDW Coeff of Robert 14.0, Plt Count 230, MPV 10.9, Immature Gran % (Auto) 0.500, Neut % (Auto) 93.1 H, Lymph % (Auto) 4.2 L, Ransom % (Auto) 2.1, Eos % (Auto) 0.0, Baso % (Auto) 0.1, Absolute Neuts (auto) 12.4 H, Absolute Lymphs (auto) 0.56 L, Nucleated RBC % 0, APTT 219.1 H*, Sodium 137, Potassium 3.8, Chloride 103, Carbon Dioxide 23.4, Anion Gap 11, BUN 24 H, Creatinine 1.53 H, Estim Creat Clear Calc 42.98 L, Est GFR (MDRD) Non-Af 38 L, BUN/Creatinine Ratio 15.8, Glucose 209 H, Calcium 9.9 Micro: Microbiology 05/25/25 00:45 Mucosa - Nasopharyngeal Respiratory Panel (PCR) - Final 05/24/25 15:56 Mucosa - Nose SARS-CoV-2, Influenza & RSV (PCR) - Final Physical Exam Const alert, oriented x3 and well nourished; Negative for average body habitus or healthy appearing Constitutional Narrative: frail, weak. General Appearance: cooperative HEENT normocephalic, head/scalp atraumatic, hearing grossly normal bilaterally, moist oral mucous membranes and oropharynx normal Eyes EOMs intact bilaterally and conjunctivae normal Eyes Narrative: No scleral icterus Neck supple and no JVD Neck Narrative: Neck is short and thick, trachea midline General: trachea midline Lymph Lymphatic: no lymphedema noted Resp No normal respiratory effort, no retractions, no use of accessory muscles and No clear to auscultation bilaterally Resp Narrative: Mildly diminished breath sounds bibasilarly. Minimal crackles auscultated. On 3 L of oxygen by nasal cannula. Cardio regular rate, regular rhythm, S1 normal heart sound, S2 normal heart sound and no murmurs GI normal to inspection, nondistended, normoactive bowel sounds, soft to palpation and non-tender GI Narrative: Protuberant abdomen Extremity normal capillary refill, no clubbing, cyanosis or edema and no calf tenderness Extremity Narrative: 2+ pedal and radial pulses General Extremity: no tenderness to palpation of joints or extremities Skin General Skin Exam: no breakdown Neuro oriented x3, moves all extremities, no focal motor deficits and no sensory deficits noted Speech: speech normal Motor Exam: general weakness Psych thought process normal, cooperative and affect normal Appearance: appropriate Assessment & Plan Assessment/Plan (1) Pleural effusion on right: (2) Hypoxia: (3) Acute exacerbation of COPD with asthma: PLAN: Plan #Acute hypoxic respiratory failure due to COPD exacerbation and right-sided pleural effusion Patient is down to 3 L of oxygen. Does not wear oxygen at home. CTA chest on admission showed no evidence of PE and showed a spiculated 1.6 x 1.3 cm right upper lobe pulmonary mass which had been previously biopsied and dilated main pulmonary artery compatible with pulmonary arterial hypertension and moderate right pleural effusion with diffuse pulmonary vascular congestion. Pathology results from March 28, 2023 did show a biopsy of the right upper lung mass which showed atypical cells but negative for malignancy. Currently on IV Solu-Medrol 40 mg Q8. COVID, RSV and flu are negative. Respiratory panel was also negative. Thoracentesis ordered and to be done on Tuesday. Currently on PO Levaquin. #Right-sided pleural effusion: As above #Elevated D-dimer: CTA of the chest was negative for any evidence of PE. Hypokalemia: Resolved #Right upper lobe pulmonary nodule: As above. Has been biopsied and this was done back in March 2023 and it showed no evidence of malignancy. Follow-up with pulmonology on outpatient basis #History of atrial flutter: On Eliquis. Will hold Eliquis for now she is due for thoracentesis on Tuesday. on heparin drip #History of recurrent UTI and overactive bladder: On Gemtesa #CKD stage IIIb: stable. Cr at baseline. #GERD: On PPI #History of TIA: On aspirin and Eliquis #Benign essential hypertension: #Hyperlipidemia: On statin #Depression and anxiety: On Seroquel and lorazepam as well as Celexa #Morbid obesity: BMI is 42.6. Complicates acute care, expected recovery and prognosis #Nicotine dependence: counseled to quit. Nicotine patch prn DVT porphylaxis; Hold eliquis as she is for thoracentesis on Tuesday. Place on heparin drip in the interim COde status: full code Charges/Coding Visit Charges Inpatient E&M: 74796 Subs Hosp L2
[2025-05-26 14:09] LABS: Partial Thromboplast Time 177.5 Seconds (24.1-36.2)
[2025-05-26] MEDS: HEPARIN/D5w 25,000 UNITS 25,000 UNITS/250 ML IV.SOLN. 9.5 UNITS CONT INF (21:35)
[2025-05-26 22:19] LABS: Partial Thromboplast Time 76.4 Seconds (24.1-36.2)
[2025-05-27] VITALS (17 sets, daily range): BP systolic 102–164; BP diastolic 55–73; PULSE 77–103; RESP 16–24; TEMP 36.4–36.7; O2SAT 84–97
--- NOTE | 2025-05-27 00:48 | NURSING ---
0000: HEPARIN INFUSION STOPPED AT THIS TIME PER ORDER. PT IS HAVING A THORACENTESIS ON TUESDAY. (PTT NOTED AT 76.4)
[2025-05-27 03:53] LABS: Hematocrit 47.2 % (37-47); Hemoglobin 15.3 g/dL (12.0-15.0); Immature Granulocytes Count 0.160 X10^3/uL (0.0-0.0); Mean Corp Hgb Conc 32.4 g/dL (32-36); Mean Corpuscular Volume 95.7 fL (81-99); Mean Platelet Vol. 10.8 fl (6.2-12.0); NRBC Flagged by Analyzer 0 % (0-5); POSITIVE DIFFERENTIAL YES; Platelet Count 251 K/mm3 (150-450); RBC Distribution Width CV 14.6 % (11.6-14.6); RBC Distribution Width SD 50.6 fl (35.1-43.9); Red Blood Count 4.93 M/mm3 (4.2-5.4); White Blood Count 22.7 K/mm3 (4.4-11.0)
[2025-05-27 03:57] LABS: Differential Indicated SCAN CRITERIA MET
[2025-05-27 04:26] LABS: Anion Gap 13 (5-15); BUN 31 mg/dL (4-19); BUN/Creat Ratio 20.8 RATIO (10-20); Calcium,Total 10.2 mg/dL (7.6-11.0); Carbon Dioxide 22.8 mmol/L (21.0-32.0); Chloride 103 mmol/L (98-108); Estimated Creatinine Clearance 44.83 ml/min (50-250); Glucose 140 mg/dL (70-99); LDH 206 U/L (84-246); Potassium 4.2 mmol/L (3.3-5.1)
[2025-05-27 05:12] LABS: Differential Comment SCANNED; Red Cell Morphology NORM C+C NORMAL (NORM C&C); Vacuolated Cells 1+
[2025-05-27] MEDS: 0.9% Saline Lock 10 ML Syringe IV ×2 (07:03→14:39)
--- NOTE | 2025-05-27 09:00 | FLU_PTH ---
PATIENT: PERNELL FISHER LOC: [facility] U#:[id number] AGE/SX: 65/F ROOM: TN312 RE05/24/[address]: Dr. Shani Pelaez MD : 1960 BED: 1 DIS: 05/28/2025 SPEC #: [id number] RECD: 05/27/25 09:46 STATUS: [facility] REQ #: [id number] VINICIO: 05/27/25 09:[address]: Shani Pelaez DEPT: CYTOLOGY RECD BY: Ronaldo Alvarez ENTERED: 05/27/25 10:48 SP TYPE: Fluid OTHR DR: MD Dr. Carol Mosqueda, DO Tissues: A - Pleural fluid, NOS Procedures: Special Stain Group II Surgery Specimen Level IV Cytospin Fluid HEADER OPERATION: Ultrasound guided thoracentesis - right PRE-OP DIAGNOSIS: Right pleural effusion TISSUE SUBMITTED: A- Thoracentesis fluid for cytology CYTOLOGY NORM Ayala Received is 90 ml of cloudy-dark red fluid labeled with the patient's name and and designated per the requisition as Thoracentesis fluid. Submitted for cytology and cell block preparation. Mr 05/27/2025 CPT: 80785,14234
[2025-05-27] MEDS: Lidocaine 2% (20 ml mdv) 20 ML Vial INFILT (09:01)
--- NOTE | 2025-05-27 09:14 | RAD_ITS ---
PROCEDURE: CHEST INSP/EXP 2 VIEW 05/27/2025 REASON FOR EXAM: POST THORA TECHNIQUE: Procedure Code: [id number] Modality: DX Procedure: CHEST INSP/EXP 2 VIEW COMPARISON: May 24, 2025 FINDINGS: Significant decrease in right pleural fluid volume following thoracentesis. Trace pleural fluid remains. Atelectasis is seen in the right middle lobe and right lower lobe. No pneumothorax on the right. Left lung is clear. Heart is normal size. Atherosclerotic plaque of the aortic knob. RAD/Chest Insp/Exp 2 View IMPRESSION: No pneumothorax. Decreased right pleural fluid volume. Reading Location: [id number]
--- NOTE | 2025-05-27 09:24 | US_ITS ---
PROCEDURE: THORACENTESIS W US 05/27/2025 REASON FOR EXAM: PL EFF TECHNIQUE: THORACENTESIS W US. The procedure as well as the benefits and possible complications including infection and bleeding as well as pneumothorax were explained to the patient. Informed consent was obtained. The posterior right hemithorax was prepped and draped in the usual sterile fashion. Following local anesthetic application and under direct sonographic guidance, a 5 Maltese catheter was placed into the right pleural cavity. 1400 mL of bloody fluid was aspirated. A sample was sent to the laboratory for analysis. The patient tolerated the procedure well. COMPARISON: Prior CT scan of the thorax dated May 24, 2025. FINDINGS: Successful right thoracentesis. US/Thoracentesis W US IMPRESSION: Successful right thoracentesis with removal of 1400 cc of bloody fluid. The patient tolerated the procedure well. Reading Location: [place] [id number]
[2025-05-27 09:54] LABS: Cytology, Body Fluid / CSF SEE PATHOLOGY REPORT
--- NOTE | 2025-05-27 09:58 | CASEMGMT ---
Addendum entered by Bren Hughes 05/27/25 15:11: SW again attempted to reach [facility] and left a voicemail regarding pt oxygen requirements. ANGI remains available to follow. BILL Roland Original Note: Social Work- Pt to be oxygen tested. SW called and left a voicemail for [facility] to inquire into if they accept residents with oxygen. ANGI remains available to follow. BILL Roland
--- NOTE | 2025-05-27 10:05 | CT_ITS ---
PROCEDURE: CHEST WITH CONTRAST 05/27/2025 REASON FOR EXAM: HYPOXIA POST THORACENTESIS TECHNIQUE: Procedure Code: CTCHW Modality: CT Procedure: CHEST WITH CONTRAST Coronal and Sagittal reconstruction series were provided. CONTRAST: Isovue 370 VOLUME: 100 mL One or more dose reduction techniques were used (e.g., Automated exposure control, adjustment of the mA and/or kV according to patient size, use of iterative reconstruction technique). RADIATION DOSE SUMMARY: CTDlvol: 33 mGy DLP: 673 mGycm COMPARISON: May 24, 2025 FINDINGS: Hardware: None Lymph nodes: Right lower paratracheal lymph node is 2.3 x 1.7 cm. Right hilar lymph node is 1.7 x 2.1 cm. Right interlobar pulmonary artery 1.4 x 0.9 cm. Heart and Vasculature: The heart is normal size. No significant pericardial effusion. Moderate atherosclerotic plaque aortic arch. Coronary artery atherosclerosis involving all 3 vessels is xloi-sy-vzziocim. Lungs and Airways: Upper lobe predominant centrilobular emphysema. Spiculated nodule right upper lobe on image 58 is 1.6 x 1.4 x 1.0 cm. The nodule is sitting upon the minor fissure. Some associated local architectural distortion, volume loss is present. Ground-glass opacity right middle lobe and right lower lobe compressive/scar subsegmental atelectasis right lung base. Pleura: Small volume pleural fluid right lung base. Upper Abdomen: Unremarkable Bones: Mild degenerative changes CT/Chest WITH Contrast IMPRESSION: 1. Spiculated nodule right upper lobe adjacent to the fissure with some local architectural distortion measuring up to 16 mm. Lymphadenopathy in the right lower paratracheal region (4R), right hilar (10 R) and right interlobar (11R). 2. Small volume pleural effusion and atelectasis with some scarring of the rig ht lung base. 3. Ground-glass opacity right middle lobe right lower lobe. Pneumonitis not e xcluded. 4. Coronary artery disease. Reading Location: [id number]
--- NOTE | 2025-05-27 10:51 | NURSING ---
-AFTER RETURING FROM THORACENTESIS, DR CHACON AND THIS NURSE WENT TO ROOM TO SEE PT. PT STATED SHE WAS FEELING BETTER. POX WAS FOUND TO BE 84% ON 4L. ACHIEVED POX 90% ON 8L HIFLO. RESPITORY THERAPY WAS NOTIFIED BY CHARGE NURSE FOR BREATHING TX AND DR CHACON NOTIFIED BY CHARGE. FURTHER ORDERS FOR CT OF CHEST AND CXR
--- NOTE | 2025-05-27 12:13 | NURSING ---
am meds given late d/t pt having a procedure this am and then additional tests after
--- NOTE | 2025-05-27 12:34 | PCM.PROGNOTE ---
Subjective Subjective Patient seen and examined with her nurse by her bedside. She had just come back from thoracentesis where she had removal of 1.4 L of fluid. Postthoracentesis chest x-ray did not show any evidence of pneumothorax. Patient had no active complaints but her oxygen requirement was noted to have gone up to 8 L of oxygen. Stat she CT chest was ordered which did not show any evidence of pneumothorax either. Pulmonology consulted. She denies any chest pain, wheezing, palpitations, nausea vomiting or any other such symptoms. Review of systems otherwise negative. Objective Data Objective Data Vital Signs: Vital Signs Temp Pulse Resp BP Pulse Ox O2 Del Method O2 Flow Rate 97.7 F L 103 H 20 H 104/71 93 High Flow 8 05/27/25 12:00 05/27/25 12:00 05/27/25 12:00 05/27/25 12:00 05/27/25 12:00 05/27/25 12:00 05/27/25 12:00 Oxygen Flow Rate (L/min) 8 Oxygen Delivery Method High Flow Weight: 233 lb 14.567 oz Body Mass Index (BMI) 43.0 Intake & Output: Intake and Output for Last 24 Hours 05/25/25 05/26/25 05/27/25 23:59 23:59 23:59 Intake Total 250.00 / 250.00 Output Total 1400 / 1400 Balance 250.00 / 250.00 -1400 / -1400 Lab / Micro Data 05/27/25 03:39 05/27/25 03:39 Labs: Laboratory Results - last 24 hr 05/26/25 13:25: APTT 177.5 H* 05/26/25 20:55: APTT 76.4 H 05/27/25 03:39: WBC 22.7 H, RBC 4.93, Hgb 15.3 H, Hct 47.2 H, MCV 95.7, MCH 31.0, MCHC 32.4, RDW Std Deviation 50.6 H, RDW Coeff of Robert 14.6, Plt Count 251, MPV 10.8, Immature Gran % (Auto) 0.700, Neut % (Auto) 93.6 H, Lymph % (Auto) 3.6 L, Marion % (Auto) 2.0, Eos % (Auto) 0.0, Baso % (Auto) 0.1, Absolute Neuts (auto) 21.3 H, Absolute Lymphs (auto) 0.81 L, Nucleated RBC % 0, Differential Comment SCANNED, Toxic Vacuolation 1+, Platelet Estimate ADEQUATE, RBC Morphology NORM C+C, Sodium 139, Potassium 4.2, Chloride 103, Carbon Dioxide 22.8, Anion Gap 13, BUN 31 H, Creatinine 1.47 H, Estim Creat Clear Calc 44.83 L, Est GFR (MDRD) Non-Af 40 L, BUN/Creatinine Ratio 20.8 H, Glucose 140 H, Calcium 10.2, Lactate Dehydrogenase 206 Micro: Microbiology 05/25/25 00:45 Mucosa - Nasopharyngeal Respiratory Panel (PCR) - Final 05/24/25 15:56 Mucosa - Nose SARS-CoV-2, Influenza & RSV (PCR) - Final Radiography Diagnostic Testing: Radiology Impression Chest X-Ray 05/27/25 09:14 IMPRESSION: No pneumothorax. Decreased right pleural fluid volume. Reading Location: [facility] Thoracentesis Ultrasound 05/27/25 09:24 IMPRESSION: Successful right thoracentesis with removal of 1400 cc of bloody fluid. The patient tolerated the procedure well. Reading Location: [id number] 05/27/25 10:05 IMPRESSION: 1. Spiculated nodule right upper lobe adjacent to the fissure with some local architectural distortion measuring up to 16 mm. Lymphadenopathy in the right lower paratracheal region (4R), right hilar (10 R) and right interlobar (11R). 2. Small volume pleural effusion and atelectasis with some scarring of the right lung base. 3. Ground-glass opacity right middle lobe right lower lobe. Pneumonitis not excluded. 4. Coronary artery disease. Reading Location: [facility] Physical Exam Const alert and oriented x3 Constitutional Narrative: frail, weak. Looks older than stated age General Appearance: cooperative HEENT normocephalic, head/scalp atraumatic, hearing grossly normal bilaterally, moist oral mucous membranes and oropharynx normal Eyes EOMs intact bilaterally and conjunctivae normal Eyes Narrative: No scleral icterus Neck supple and no JVD Neck Narrative: Neck is short and thick, trachea midline General: trachea midline Lymph Lymphatic: no lymphedema noted Resp no retractions and no use of accessory muscles Resp Narrative: Mildly diminished breath sounds bibasilarly. Minimal crackles auscultated. On 8 L of oxygen by nasal cannula. Auscultation: wheezes; Negative for rales or rhonchi Cardio regular rate, regular rhythm, S1 normal heart sound, S2 normal heart sound, no murmurs and no rub GI normal to inspection, nondistended, normoactive bowel sounds, soft to palpation, non-tender and non-distended GI Narrative: Protuberant abdomen Extremity normal capillary refill, no clubbing, cyanosis or edema and no calf tenderness Extremity Narrative: 2+ pedal and radial pulses General Extremity: no tenderness to palpation of joints or extremities Skin General Skin Exam: no breakdown Neuro oriented x3, moves all extremities, no focal motor deficits and no sensory deficits noted Speech: speech normal Motor Exam: general weakness Psych thought process normal, cooperative and affect normal Appearance: appropriate Assessment & Plan Assessment/Plan (1) Pleural effusion on right: (2) Hypoxia: (3) Acute exacerbation of COPD with asthma: PLAN: Plan #Acute hypoxic respiratory failure due to COPD exacerbation and right-sided pleural effusion Patient is down to 3 L of oxygen. Does not wear oxygen at home. CTA chest on admission showed no evidence of PE and showed a spiculated 1.6 x 1.3 cm right upper lobe pulmonary mass which had been previously biopsied and dilated main pulmonary artery compatible with pulmonary arterial hypertension and moderate right pleural effusion with diffuse pulmonary vascular congestion. Pathology results from March 28, 2023 did show a biopsy of the right upper lung mass which showed atypical cells but negative for malignancy. Currently on IV Solu-Medrol 40 mg Q8. COVID, RSV and flu are negative. Respiratory panel was also negative. Had a right-sided thoracentesis today with removal of 8 L of fluid.. Currently on PO Levaquin. Oxygen requirements went up to 8 L after the thoracentesis. Post thoracentesis chest x-ray did not show any evidence of pneumothorax. Stat CTA of the chest done showed no evidence of PE and also did not show any evidence of pneumothorax or pneumonia pulmonology consulted. Continue IV solumedrol and breathing treatment with bronchodilators. Completed a short course of PO levaquin. BNP was only 86 on 05/24/2025 will recheck BNP #Right-sided pleural effusion: As above. Status post right-sided thoracentesis with removal of 1.4 L of fluid today. #Elevated D-dimer: CTA of the chest was negative for any evidence of PE. Hypokalemia: Resolved #Right upper lobe pulmonary nodule: As above. Has been biopsied and this was done back in March 2023 and it showed no evidence of malignancy. Follow-up with pulmonology on outpatient basis #History of atrial flutter: On Eliquis. Will hold Eliquis for now she is due for thoracentesis on Tuesday. on heparin drip will DC heparin drip as she is at the thoracentesis. Resume Eliquis this evening. #History of recurrent UTI and overactive bladder: On Gemtesa #CKD stage IIIb: stable. Cr at baseline. #GERD: On PPI #History of TIA: On aspirin and Eliquis #Benign essential hypertension: #Hyperlipidemia: On statin #Depression and anxiety: On Seroquel and lorazepam as well as Celexa #Morbid obesity: BMI is 42.6. Complicates acute care, expected recovery and prognosis #Nicotine dependence: counseled to quit. Nicotine patch prn DVT popohylaxis:resume Eliquis this evening. COde status: full code Charges/Coding Visit Charges Inpatient E&M: 72204 Subs Hosp L3
--- NOTE | 2025-05-27 13:13 | EX.PCM.CONCC ---
Assessment & Plan Assessment/Plan (1) Pleural effusion on right: (2) Hypoxia: PLAN: Plan RECOMMENDATIONS: 1. Start scheduled bronchodilator therapy. 2. Continue empiric antibiotics and corticosteroids. 3. Agree with sending pleural fluid for cytology. 4. Start continuous pulse oximetry monitoring and titrate supplemental oxygen for saturations 88 to 92%. 5. Close outpatient pulmonary follow-up strongly recommended. IMPRESSIONS: 1. Shortness of breath and hypoxemia The patient was initially admitted to the hospital for treatment of an asthma/COPD overlap exacerbation, complicated by a moderate right-sided pleural effusion. Prior echocardiogram from August 2024 revealed intact, normal systolic function. BNP was normal. The patient does have an extensive tobacco abuse history and continues to smoke cigarettes daily. In addition, she has a known spiculated right upper lobe lung nodule which was previously biopsied. Although the pathology results in 2022 were negative for malignancy, notation was made of atypical cells being present. Therefore, it is certainly feasible that the upper lobe nodularity and right sided effusion could be malignant in nature. The patient is status postthoracentesis with bloody fluid aspirated from the pleural space. Pleural fluid studies are currently pending. Agree with sending pleural fluid for cytology. Although the patient had an increase in oxygen requirement postprocedure, there is no evidence of pneumothorax on CT scan. I am going to place an order for scheduled bronchodilators and continuous pulse oximetry, with a goal to wean her oxygen to maintain saturations 80 to 92%. In the interim, continue antibiotics and corticosteroids. 2. Pulmonary nodularity with pleural effusion and mediastinal adenopathy The patient has an extensive tobacco abuse history and has had questionable outpatient follow-up in our pulmonary medicine office. She did previously undergo a CT-guided lung biopsy in 2022 which was reportedly negative, but did indicate the presence of atypical cells. The patient would still be considered extremely high risk given her ongoing tobacco abuse. I agree with sending the pleural fluid for cytology to evaluate for malignant cells. Ultimately, the patient is going to need to be followed closely in the pulmonary medicine office after discharge. If pleural fluid cytology is negative, I would consider a follow-up PET scan on an outpatient basis, given the enlarged mediastinal nodes noted. 3. History of tobacco dependency/history of homelessness/paroxysmal atrial fibrillation/diabetes mellitus Complicates care, management, recovery and prognosis. Continue supportive measures as noted above. This note was generated with Dragon dictation software. It may contain incorrect words, spelling, and punctuation that were not noted in checking the note before signing. HPI Consult Data Date of Consult: 05/27/25 HPI Narrative Reason for Consultation: Hypoxemia HPI Narrative: The patient is a 65-year-old female, with a history as outlined below, who presented to the emergency department on May 24 with complaints of shortness of breath and cough. The patient has been followed intermittently in our pulmonary medicine office due to a history of asthma/COPD overlap, but has a significant no-show rate and issues with compliance. She reported that she currently resides in a local homeless jail and continues to smoke 1 pack of cigarettes per day. She has also been followed in the past due to a history of pulmonary nodularity, for which she underwent biopsy in 2022 which was reportedly negative. The patient did not show up to her last scheduled pulmonary office appointment in April 2025. She reported that she does not utilize supplemental oxygen at her baseline. On presentation to the emergency department, the patient was noted to be afebrile and hemodynamically stable. She was initially saturating 86% on room air. Laboratory evaluation revealed a normal white blood cell count. Chemistry profile was notable for a potassium of 3.1 and creatinine of 1.53. Lactate was within normal limits. BNP was unremarkable. CTA chest showed no evidence for pulmonary embolism, but did confirm a right upper lobe spiculated nodule along with a moderate right-sided pleural effusion. The patient was ultimately placed on p.o. Lasix, Levaquin and steroids. She was admitted to the hospital for further management. This morning, the patient underwent ultrasound-guided thoracentesis with 1.4 L of bloody fluid aspirated. Postprocedure, the patient apparently had an increase in supplemental oxygen requirement, for which she underwent CT chest, which showed no evidence for pneumothorax. Currently, the patient reported that her breathing quality has improved following thoracentesis. [facility] Medical History (Updated 05/25/25 @ 00:23 by Jannette Cardoso) Osteoporosis Kidney disease CKD stage 3b, GFR 30-44 ml/min Overactive bladder Decubitus ulcer of buttock, stage 1 Encounter for smoking cessation counseling History of COPD Urinary tract infection History of echocardiogram Wears glasses Anxiety Depression Post-menopausal History of renal disease High cholesterol Back pain TIA (transient ischemic attack) Gastric reflux Smoker Shortness of breath on exertion History of pain when walking History of edema Cardiology follow-up encounter History of heart attack Chest pain History of left heart catheterization (LHC) (~12/30/20) CKD (chronic kidney disease) stage 3, GFR 30-59 ml/min Lung nodule COPD (chronic obstructive pulmonary disease) Paroxysmal atrial fibrillation Elevated liver enzymes Acute respiratory failure with hypoxia Stroke IBS (irritable bowel syndrome) Hyperlipidemia Heart disease Migraines Frequent headaches Gastrointestinal problem Diabetes History of back problems Asthma Arthritis Home Medications ?Medication ?Instructions ?Recorded ?Last Taken ?Type apixaban 5 mg tablet (Eliquis) 5 mg PO Q12 #60 tabs 11/07/24 Unknown Rx quetiapine 100 mg tablet 200 mg (2 x 100 mg) PO BID #120 11/07/24 Unknown Rx Held on 01/11/25. tabs Instructions: Hold while taking Levaquin only for tomorrow lorazepam 0.5 mg tablet 0.5 mg PO Q12H PRN anxiety 11/14/24 Unknown History lovastatin 40 mg tablet 20 mg PO QHS 11/14/24 Unknown History omeprazole 40 mg capsule,delayed 40 mg PO DAILY 11/14/24 Unknown History release aspirin 81 mg capsule 81 mg PO DAILY 01/08/25 Unknown History furosemide 20 mg tablet 20 mg PO BID 01/08/25 Unknown History mupirocin 2 % topical ointment 1 applic topical TID 01/29/25 Unknown History nitrofurantoin 1 cap PO BID 01/29/25 Unknown History monohydrate/macrocrystals 100 mg capsule quetiapine 200 mg tablet,extended PO 01/29/25 Unknown History release 24 hr spironolactone 25 mg tablet 25 mg PO DAILY 01/29/25 Unknown History vibegron 75 mg tablet (Gemtesa) 75 mg PO DAILY 01/29/25 Unknown History citalopram 10 mg tablet 10 mg PO DAILY 01/31/25 Unknown History ipratropium 0.5 mg-albuterol 3 mg 3 ml continuous nebulization ONCE 01/31/25 Unknown Clinic (2.5 mg base)/3 mL nebulization shortness of breath #3 mL soln ipratropium 0.5 mg-albuterol 3 mg 3 ml inhalation Q20M PRN shortness 01/31/25 Unknown Rx (2.5 mg base)/3 mL nebulization of breath 1 month #90 mL soln nitroglycerin 0.4 mg sublingual 0.4 mg sublingual DAILY 01/31/25 Unknown History tablet Gemtesa 75 mg tablet (vibegron) 75 mg PO QDAY #90 tabs 02/27/25 Unknown Rx methenamine hippurate 1 gram tablet 1 g PO BID #180 tabs 02/27/25 Unknown Rx albuterol sulfate 90 mcg/actuation 2 puff inhalation Q6H PRN 04/24/25 Unknown Rx aerosol inhaler shortness of breath or wheezing #8.5 grams albuterol sulfate 90 mcg/actuation 1 - 2 puff inhalation Q4H PRN PRN 04/30/25 Unknown Rx aerosol inhaler (Ventolin HFA) Wheezing ##1 trazodone 100 mg tablet 100 mg PO QHS 05/24/25 Unknown History Held on 01/11/25. Instructions: Hold while taking Levaquin tomorrow. Allergy/AdvReac Type Severity Reaction Status Date / Time Penicillins Allergy Intermediate Hives Verified 05/24/25 14:05 carbamazepine (From Tegretol) AdvReac Intermediate Nausea Verified 05/24/25 14:05 benztropine AdvReac Unknown Verified 05/24/25 14:05 diazepam (From Valium) AdvReac Other Verified 05/24/25 14:05 Sulfa (Sulfonamide AdvReac Nausea Verified 05/24/25 14:05 Antibiotics) thioridazine AdvReac Nausea Verified 05/24/25 14:05 thioridazine HCl (From AdvReac Other Verified 05/24/25 14:05 Mellaril) Family History Grandmother Cancer stomach Father Cancer lung Sister Breast cancer Surgical History Hx of surgical procedure History of carpal tunnel surgery History of elbow surgery H/O shoulder surgery H/O hand surgery H/O dilation and curettage Hx of cholecystectomy History of tonsillectomy Social History housing: homeless Smoking Status: Heavy Smoker (>10/day) alcohol intake: never substance use type: does not use caffeine: Yes what type of physical activity do you participate in: walking seatbelt use: always do you feel safe at home: Yes ROS ROS Narrative 10 systems were reviewed with pertinent positives as noted in the HPI above. Physical Exam Const alert, oriented x3 and no apparent distress Constitutional Narrative: Sitting in bedside recliner. HEENT normocephalic and head/scalp atraumatic Eyes PERRL, EOMs intact bilaterally and conjunctivae normal Neck supple General: trachea midline Chest inspection of chest normal Resp normal respiratory effort Auscultation: rales and diminished lung sounds Cardio regular rate and regular rhythm GI normal to inspection, nondistended, normoactive bowel sounds Extremity no clubbing, cyanosis or edema Skin no rashes or lesions noted Neuro CN's II-XII intact bilaterally, moves all extremities and no focal motor deficits Psych cooperative and affect normal Lab / Micro Data 05/27/25 03:39 05/27/25 03:39 Labs: Laboratory Results - last 24 hr 05/26/25 13:25: APTT 177.5 H* 05/26/25 20:55: APTT 76.4 H 05/27/25 03:39: WBC 22.7 H, RBC 4.93, Hgb 15.3 H, Hct 47.2 H, MCV 95.7, MCH 31.0, MCHC 32.4, RDW Std Deviation 50.6 H, RDW Coeff of Robert 14.6, Plt Count 251, MPV 10.8, Immature Gran % (Auto) 0.700, Neut % (Auto) 93.6 H, Lymph % (Auto) 3.6 L, Isabella % (Auto) 2.0, Eos % (Auto) 0.0, Baso % (Auto) 0.1, Absolute Neuts (auto) 21.3 H, Absolute Lymphs (auto) 0.81 L, Nucleated RBC % 0, Differential Comment SCANNED, Toxic Vacuolation 1+, Platelet Estimate ADEQUATE, RBC Morphology NORM C+C, Sodium 139, Potassium 4.2, Chloride 103, Carbon Dioxide 22.8, Anion Gap 13, BUN 31 H, Creatinine 1.47 H, Estim Creat Clear Calc 44.83 L, Est GFR (MDRD) Non-Af 40 L, BUN/Creatinine Ratio 20.8 H, Glucose 140 H, Calcium 10.2, Lactate Dehydrogenase 206 Imaging Radiology Impression Chest X-Ray 05/27/25 09:14 IMPRESSION: No pneumothorax. Decreased right pleural fluid volume. Reading Location: [facility] Thoracentesis Ultrasound 05/27/25 09:24 IMPRESSION: Successful right thoracentesis with removal of 1400 cc of bloody fluid. The patient tolerated the procedure well. Reading Location: [facility] 05/27/25 10:05 IMPRESSION: 1. Spiculated nodule right upper lobe adjacent to the fissure with some local architectural distortion measuring up to 16 mm. Lymphadenopathy in the right lower paratracheal region (4R), right hilar (10 R) and right interlobar (11R). 2. Small volume pleural effusion and atelectasis with some scarring of the right lung base. 3. Ground-glass opacity right middle lobe right lower lobe. Pneumonitis not excluded. 4. Coronary artery disease. Reading Location: [facility] Charges/Coding Visit Charges Inpatient E&M: 26248 Init Hosp L3
[2025-05-27 13:24] LABS: Pro- Brain NATRIURETIC PEPTIDE 396 pg/mL (<=900)
--- NOTE | 2025-05-27 15:48 | CHAPLAIN ---
Type of Pastoral Visit _x__ Initial Visit ___ Follow-up Visit ___ On-call Visit ___ General Patient Visit ___ Spiritual Assessment ___ Family Conference ___ Bereavement ___ Rapid Response ___ Code Blue ___ Other (describe below) Pastoral Care Referral From _x__ Patient ___ Family ___ Nurse ___ Physician ___ Lead Auditor ___ Metalworking Specialist ___ Other (describe below) Sacrament/Intervention _x__ Active listening ___ Anointing ___ Hinduism ___ Bereavement ___ Communion ___ Kendy exploration ___ _x__ Life review _x__ Prayer ___ Reconciliation ___ Sacrament of Sick _x__ Supportive presence ___ Wedding ___ Other (describe below) Pastoral Comments patient remembers this direct support staff member and gives follow up on her last visit with support needed for a son in [place]; pt reports that support was effective and that she has a good relationship and is in contact with this son now; pt needs housing for future security and safety and mentions several agencies that are assisting her; pt acknowledges the challenges of being [facility] instead of a home; prayer is welcomed
--- NOTE | 2025-05-27 16:21 | CASEMGMT ---
Ernestina from [facility] called, Pt has a bed for 05/28/25. Pt can go with O2 if just needing it for the night. Pt is required to leave every morning from 8-10 and every afternoon from 4-6pm. Ernestina states it would be very difficult for Pt to be able to go to the bathroom and to meals every day if needing to have the concentrator plugged in at bedside - the bathroom is on the complete opposite end of the building and their are a lot of people to navigate in between the spaces. OMARI CM notified SWMarci Do works 11am-7pm and can be reached at her direct line [phone].
[2025-05-27] MEDS: APIXABAN 5 MG TABLET PO (22:00)
[2025-05-28] VITALS (8 sets, daily range): BP systolic 94–111; BP diastolic 57–61; PULSE 67–96; RESP 17–20; TEMP 36.3–36.8; O2SAT 91–96; BMI 43.0
[2025-05-28 06:51] LABS: Hematocrit 44.1 % (37-47); Hemoglobin 14.2 g/dL (12.0-15.0); Immature Granulocytes Count 0.110 X10^3/uL (0.0-0.0); Mean Corp Hgb Conc 32.2 g/dL (32-36); Mean Corpuscular Volume 95.0 fL (81-99); Mean Platelet Vol. 10.7 fl (6.2-12.0); NRBC Flagged by Analyzer 0 % (0-5); Platelet Count 254 K/mm3 (150-450); RBC Distribution Width CV 14.5 % (11.6-14.6); RBC Distribution Width SD 50.2 fl (35.1-43.9); Red Blood Count 4.64 M/mm3 (4.2-5.4); White Blood Count 17.2 K/mm3 (4.4-11.0)
[2025-05-28 07:12] LABS: Anion Gap 9 (5-15); BUN 37 mg/dL (4-19); BUN/Creat Ratio 24.1 RATIO (10-20); Calcium,Total 9.4 mg/dL (7.6-11.0); Carbon Dioxide 26.0 mmol/L (21.0-32.0); Chloride 105 mmol/L (98-108); Estimated Creatinine Clearance 42.50 ml/min (50-250); Glucose 168 mg/dL (70-99); Potassium 4.1 mmol/L (3.3-5.1)
[2025-05-28] MEDS: APIXABAN 5 MG TABLET PO (09:02)
--- NOTE | 2025-05-28 10:34 | PN.CC_ITS ---
Assessment & Plan Assessment/Plan (1) Pleural effusion on right: (2) Hypoxia: PLAN: Plan RECOMMENDATIONS: 1. Continue bronchodilator therapy. 2. Continue antibiotics to complete 7 days of therapy. 3. Transition to prednisone 40 mg daily with plans to complete a 5-day burst. 4. Encourage incentive spirometer use and mobilize patient as tolerated. 5. The patient should follow-up in the pulmonary medicine clinic within 2 weeks of discharge. Results of her pleural fluid cytology can be reviewed at that time. 6. Will sign off at this time. Please call with any additional questions. IMPRESSIONS: 1. Shortness of breath and hypoxemia The patient was initially admitted to the hospital for treatment of an asthma/COPD overlap exacerbation, complicated by a moderate right-sided pleural effusion. Prior echocardiogram from August 2024 revealed intact, normal systolic function. BNP was normal. The patient does have an extensive tobacco abuse history and continues to smoke cigarettes daily. In addition, she has a known spiculated right upper lobe lung nodule which was previously biopsied. Although the pathology results in 2022 were negative for malignancy, notation was made of atypical cells being present. Therefore, it is certainly feasible that the upper lobe nodularity and right sided effusion could be malignant in nature. The patient is status post thoracentesis with bloody fluid aspirated from the pleural space. Pleural fluid cultures and cytology are pending. The patient's respiratory status has improved following thoracentesis and she is maintaining appropriate oxygen saturations on room air. Recommend continuing antibiotics to complete 7 days of therapy along with prednisone 40 mg daily x 5 days. The patient should follow-up in the pulmonary medicine clinic within 2 weeks of discharge. 2. Pulmonary nodularity with pleural effusion and mediastinal adenopathy The patient has an extensive tobacco abuse history and has had questionable outpatient follow-up in our pulmonary medicine office. She did previously undergo a CT-guided lung biopsy in 2022 which was reportedly negative, but did indicate the presence of atypical cells. The patient would still be considered extremely high risk given her ongoing tobacco abuse. I agree with sending the pleural fluid for cytology to evaluate for malignant cells. Ultimately, the patient is going to need to be followed closely in the pulmonary medicine office after discharge. If pleural fluid cytology is negative, I would consider a follow-up PET scan on an outpatient basis, given the enlarged mediastinal nodes noted. 3. History of tobacco dependency/history of homelessness/paroxysmal atrial fibrillation/diabetes mellitus Complicates care, management, recovery and prognosis. Continue supportive measures as noted above. This note was generated with Honk dictation software. It may contain incorrect words, spelling, and punctuation that were not noted in checking the note before signing. Subjective Subjective The patient was seen and examined at the bedside this morning. Events from the last 24 hours have been reviewed. The patient is currently afebrile, hemodynamically stable and maintaining appropriate oxygen saturations on room air. White blood cell count has improved to 17,000. Creatinine is stable at 1.5. Objective Data Objective Data The patient's most recent lab work, culture data and imaging studies have all been personally reviewed. Pleural fluid cultures and cytology are pending. Vital Signs: Vital Signs Temp Pulse Resp BP Pulse Ox O2 Del Method O2 Flow Rate 97.4 F L 88 18 94/57 L 94 Room Air 3 05/28/25 08:54 05/28/25 08:54 05/28/25 08:54 05/28/25 08:54 05/28/25 08:54 05/28/25 08:54 05/28/25 07:48 Oxygen Flow Rate (L/min) 3 Oxygen Delivery Method Room Air Weight: 233 lb 11.04 oz Body Mass Index (BMI) 43.0 Intake & Output: Intake and Output for Last 24 Hours 05/26/25 05/27/25 05/28/25 23:59 23:59 23:59 Intake Total 250.00 / 250.00 950 / 950 Output Total 1400 / 1400 Balance 250.00 / 250.00 -1400 / -1000 950 / 950 Lab / Micro Data Attestation: I reviewed the patient's lab results. 05/28/25 06:28 05/28/25 06:28 Labs: Laboratory Results - last 24 hr 05/27/25 03:39: NT pro BNP II 396, Total Protein 6.7 05/28/25 06:28: WBC 17.2 H, RBC 4.64, Hgb 14.2, Hct 44.1, MCV 95.0, MCH 30.6, MCHC 32.2, RDW Std Deviation 50.2 H, RDW Coeff of Robert 14.5, Plt Count 254, MPV 10.7, Immature Gran % (Auto) 0.600, Neut % (Auto) 91.8 H, Lymph % (Auto) 4.2 L, Yancey % (Auto) 3.3, Eos % (Auto) 0.0, Baso % (Auto) 0.1, Absolute Neuts (auto) 15.8 H, Absolute Lymphs (auto) 0.72 L, Nucleated RBC % 0, Sodium 140, Potassium 4.1, Chloride 105, Carbon Dioxide 26.0, Anion Gap 9, BUN 37 H, Creatinine 1.55 H , Estim Creat Clear Calc 42.50 L, Est GFR (MDRD) Non-Af 37 L, BUN/Creatinine Ratio 24.1 H, Glucose 168 H, Calcium 9.4 Micro: Microbiology 05/27/25 04:00 Fluid - Thoracentesis Fluid Gram Stain - Final 05/25/25 00:45 Mucosa - Nasopharyngeal Respiratory Panel (PCR) - Final 05/24/25 15:56 Mucosa - Nose SARS-CoV-2, Influenza & RSV (PCR) - Final Radiography Diagnostic Testing: Radiology Impression Chest CT 05/27/25 10:05 IMPRESSION: 1. Spiculated nodule right upper lobe adjacent to the fissure with some local architectural distortion measuring up to 16 mm. Lymphadenopathy in the right lower paratracheal region (4R), right hilar (10 R) and right interlobar (11R). 2. Small volume pleural effusion and atelectasis with some scarring of the right lung base. 3. Ground-glass opacity right middle lobe right lower lobe. Pneumonitis not excluded. 4. Coronary artery disease. Reading Location: [facility] Physical Exam Const alert, oriented x3 and no apparent distress Constitutional Narrative: Sitting in bedside recliner. HEENT normocephalic and head/scalp atraumatic Eyes PERRL, EOMs intact bilaterally and conjunctivae normal Neck supple General: trachea midline Chest inspection of chest normal Resp normal respiratory effort Auscultation: rales and diminished lung sounds Cardio regular rate and regular rhythm GI normal to inspection, nondistended, normoactive bowel sounds Extremity no clubbing, cyanosis or edema Skin no rashes or lesions noted Neuro CN's II-XII intact bilaterally, moves all extremities and no focal motor deficits Psych cooperative and affect normal Charges/Coding Visit Charges Inpatient E&M: 27771 Subs Hosp L2
--- NOTE | 2025-05-28 10:40 | CASEMGMT ---
Social Work SW set up a hospital van for 2pm to take pt back to [facility]. SW notified pt's RN and physician. ELIANA KateS
--- NOTE | 2025-05-28 11:58 | DS.PCM_ITS ---
Providers Date of Admission: 05/24/25 Date of Discharge: 05/28/25 Primary Care Physician: Dr. Homer Bradford MD Consultations 05/27/25 12:32 Consult: Credentialing Coordinator / Pulmonary Medicine Routine Consulting Provider: Intensivists/Pulmonary Med Reason for Consult: acute hypoxic respiratory failure, pleural effusion EMERGENT Consult: No MD Notified: Yes Date Notified: 05/27/25 Time Notified: 12:32 Method of Notification: Text Reason For Visit: AECOPD/ R PLEURAL EFFUSION Diagnosis Discharge Diagnosis (1) Pleural effusion on right: Status: Acute Code(s): J90 - Pleural effusion, not elsewhere classified (2) Hypoxia: Status: Acute Code(s): R09.02 - Hypoxemia Plan #Acute hypoxic respiratory failure due to COPD exacerbation and right-sided pleural effusion * Patient is down to 3 L of oxygen. Does not wear oxygen at home. * CTA chest on admission showed no evidence of PE and showed a spiculated 1.6 x 1.3 cm right upper lobe pulmonary mass which had been previously biopsied and dilated main pulmonary artery compatible with pulmonary arterial hypertension and moderate right pleural effusion with diffuse pulmonary vascular congestion. * Pathology results from March 28, 2023 did show a biopsy of the right upper lung mass which showed atypical cells but negative for malignancy. * Currently on IV Solu-Medrol 40 mg Q8. COVID, RSV and flu are negative. Respiratory panel was also negative. * Had a right-sided thoracentesis today with removal of 8 L of fluid.. * Currently on PO Levaquin. * Oxygen requirements went up to 8 L after the thoracentesis. Post thoracentesis chest x-ray did not show any evidence of pneumothorax. Stat CTA of the chest done showed no evidence of PE and also did not show any evidence of pneumothorax or pneumonia * pulmonology consulted. Continue IV solumedrol and breathing treatment with bronchodilators. Completed a short course of PO levaquin. BNP was only 86 on 05/24/2025 * will recheck BNP #Right-sided pleural effusion: As above. Status post right-sided thoracentesis with removal of 1.4 L of fluid today. #Elevated D-dimer: CTA of the chest was negative for any evidence of PE. Hypokalemia: Resolved #Right upper lobe pulmonary nodule: As above. Has been biopsied and this was done back in March 2023 and it showed no evidence of malignancy. Follow-up with pulmonology on outpatient basis #History of atrial flutter: On Eliquis. Will hold Eliquis for now she is due for thoracentesis on Tuesday. on heparin drip will DC heparin drip as she is at the thoracentesis. Resume Eliquis this evening. #History of recurrent UTI and overactive bladder: On Gemtesa #CKD stage IIIb: stable. Cr at baseline. #GERD: On PPI #History of TIA: On aspirin and Eliquis #Benign essential hypertension: #Hyperlipidemia: On statin #Depression and anxiety: On Seroquel and lorazepam as well as Celexa #Morbid obesity: BMI is 42.6. Complicates acute care, expected recovery and prognosis #Nicotine dependence: counseled to quit. Nicotine patch prn DVT popohylaxis:resume Eliquis this evening. COde status: full code Medications at Discharge Home Medications apixaban 5 mg tablet (Eliquis) 5 mg PO Q12 #60 tabs 11/07/24 quetiapine 100 mg tablet 200 mg (2 x 100 mg) PO BID #120 tabs 11/07/24 lorazepam 0.5 mg tablet 0.5 mg PO Q12H PRN anxiety 11/14/24 lovastatin 40 mg tablet 20 mg PO QHS 11/14/24 omeprazole 40 mg capsule,delayed release 40 mg PO DAILY 11/14/24 aspirin 81 mg capsule 81 mg PO DAILY 01/08/25 mupirocin 2 % topical ointment 1 applic topical TID 01/29/25 quetiapine 200 mg tablet,extended release 24 hr PO 01/29/25 vibegron 75 mg tablet (Gemtesa) 75 mg PO DAILY 01/29/25 citalopram 10 mg tablet 10 mg PO DAILY 01/31/25 ipratropium 0.5 mg-albuterol 3 mg (2.5 mg base)/3 mL nebulization soln 3 ml continuous nebulization ONCE shortness of breath #3 mL 01/31/25 ipratropium 0.5 mg-albuterol 3 mg (2.5 mg base)/3 mL nebulization soln 3 ml inhalation Q20M PRN shortness of breath 1 month #90 mL 01/31/25 nitroglycerin 0.4 mg sublingual tablet 0.4 mg sublingual DAILY 01/31/25 Gemtesa 75 mg tablet (vibegron) 75 mg PO QDAY #90 tabs 02/27/25 methenamine hippurate 1 gram tablet 1 g PO BID #180 tabs 02/27/25 albuterol sulfate 90 mcg/actuation aerosol inhaler 2 puff inhalation Q6H PRN shortness of breath or wheezing #8.5 grams 04/24/25 albuterol sulfate 90 mcg/actuation aerosol inhaler (Ventolin HFA) 1 - 2 puff inhalation Q4H PRN PRN Wheezing ##1 04/30/25 trazodone 100 mg tablet 100 mg PO QHS 05/24/25 furosemide 20 mg tablet 20 mg PO DAILY #30 tabs 05/28/25 ipratropium 0.5 mg-albuterol 3 mg (2.5 mg base)/3 mL nebulization soln 3 ml inhalation Q4H PRN shortness of breath or wheezing #180 mL 05/28/25 levofloxacin 750 mg tablet 750 mg PO DAILY #4 tabs 05/28/25 prednisone 20 mg tablet 40 mg (2 x 20 mg) PO DAILY #10 tabs 05/28/25 Hospital Course Operations None Procedures Thoracentesis Summary of Care Provided Minutes Spent on Discharge: 43 Hospital Course: Patient is a 65-year-old female with past medical history as outlined was admitted through the ED on 05/28/2025 with a complaint of shortness of breath and wheezing. She did have a history of COPD and was to be following up with pulmonology but has not been very compliant. She does not wear oxygen at baseline. She had been having worsening shortness of breath for about 2 to 3 weeks prior to admission. She had been seen at an urgent care center several days prior to admission and placed on oral antibiotics which appeared to be doxycycline per external med fill review on admission. She says she took 1 dose of the antibiotic and had nausea and vomiting so she stopped taking it. She was also given a prednisone taper and completed that but her shortness of breath still persisted. She had a cough which was productive of greenish sputum. Patient still smoking and says she had tried to cut down and was on 8 cigarettes daily. On admission she was on 2 L of oxygen and CBC did not show any elevated white cell count. D-dimer was elevated at 1.43. Creatinine was 1.53. She did have underlying CKD stage III. Initial troponin was 19 with delta troponin of 18 and third troponin was 19 so essentially remained flat and was consistent with her previous troponins. proBNP was only 86 and urinalysis showed no evidence of infection. CT of the chest done showed moderate right pleural effusion and a spiculated mass in the right upper lobe which had been biopsied on March 28, 2023 and had shown atypical cells but no evidence of malignancy. She was therefore admitted to be managed for hypoxia due to COPD exacerbation and right-sided moderate pleural effusion. Thoracentesis was ordered and she had thoracentesis done on 05/27/2025 with removal of thousand 400 cc of bloody fluid. Of note she was also placed on IV Solu-Medrol during admission. She was also placed on p.o. Levaquin. She completed a short course of p.o. Levaquin during admission. After the thoracentesis patient's oxygen requirements went up to 8 L of oxygen. Pulmonology was consulted. Her oxygen requirement subsequently improved and she did much better. She was weaned down to room air. She was discharged on p.o. prednisone 40 mg daily and discharged on oral antibiotics to complete a 7-day course. She is follow-up with her primary care doctor and was referred to pulmonology on outpatient basis follow- up with them within 2 weeks. Patient was seen and examined prior to discharge. She had no active complaints. Review of systems otherwise negative. Labs and vitals reviewed. Medication reviewed and reconciled. Of note, her fluid Gram stain and culture as well as pathology were pending at time of discharge. Physical Exam Const alert and oriented x3 Constitutional Narrative: frail, weak. Looks older than stated age General Appearance: cooperative and comfortable HEENT normocephalic, head/scalp atraumatic, hearing grossly normal bilaterally, moist oral mucous membranes and oropharynx normal Eyes EOMs intact bilaterally and conjunctivae normal Eyes Narrative: No scleral icterus Neck supple and no JVD Neck Narrative: Neck is short and thick, trachea midline General: trachea midline Lymph Lymphatic: no lymphedema noted Resp normal respiratory effort, no retractions, no use of accessory muscles and clear to auscultation bilaterally Resp Narrative: on room air. Auscultation: wheezes; Negative for rales or rhonchi Cardio regular rate, regular rhythm, S1 normal heart sound, S2 normal heart sound and no murmurs GI normal to inspection, nondistended, normoactive bowel sounds, soft to palpation, non-tender and non-distended GI Narrative: Protuberant abdomen Extremity normal capillary refill, no clubbing, cyanosis or edema and no calf tenderness Extremity Narrative: 2+ pedal and radial pulses General Extremity: no tenderness to palpation of joints or extremities Skin no rashes or lesions noted General Skin Exam: no breakdown Neuro oriented x3, moves all extremities, no focal motor deficits and no sensory deficits noted Sensorium / Orientation: awake and alert Speech: speech normal Motor Exam: general weakness Psych thought process normal, cooperative and affect normal Appearance: appropriate Weight / BMI Weight Weight: 233 lb 11.04 oz Body Mass Index (BMI) 43.0 ABG / Lab / Microbiology Data 05/28/25 06:28 05/28/25 06:28 Laboratory: Laboratory Results - last 24 hr 05/28/25 06:28: WBC 17.2 H, RBC 4.64, Hgb 14.2, Hct 44.1, MCV 95.0, MCH 30.6, MCHC 32.2, RDW Std Deviation 50.2 H, RDW Coeff of Robert 14.5, Plt Count 254, MPV 10.7, Immature Gran % (Auto) 0.600, Neut % (Auto) 91.8 H, Lymph % (Auto) 4.2 L, [place] % (Auto) 3.3, Eos % (Auto) 0.0, Baso % (Auto) 0.1, Absolute Neuts (auto) 15.8 H, Absolute Lymphs (auto) 0.72 L, Nucleated RBC % 0, Sodium 140, Potassium 4.1, Chloride 105, Carbon Dioxide 26.0, Anion Gap 9, BUN 37 H, Creatinine 1.55 H , Estim Creat Clear Calc 42.50 L, Est GFR (MDRD) Non-Af 37 L, BUN/Creatinine Ratio 24.1 H, Glucose 168 H, Calcium 9.4 Microbiology: Microbiology 05/27/25 04:00 Fluid - Thoracentesis Fluid Gram Stain - Final 05/25/25 00:45 Mucosa - Nasopharyngeal Respiratory Panel (PCR) - Final 05/24/25 15:56 Mucosa - Nose SARS-CoV-2, Influenza & RSV (PCR) - Final D/C Instructions Discharge Activity: Return to Normal Activity Weight Bearing Status: Weight bearing as tolerated Call your doctor if you observe: Fever of 101 or Higher, Shortness of breath, Dizziness, Swelling in the ankles and Chest pain DC O2, CPAP, BIPAP Needs Home O2 Discharge instructions: No DC home with Oxygen: No Meaningful Use Info Meaningful Use Meaningful Use Diagnoses (Choose all that apply): None applicable Discharge Plan Admission Admit Date/Time: 05/24/25 22:23 Primary Reason for Your Visit: acute exacerbation of COPD, pleural effusion Attending Provider: Shani Pelaez Primary Care Provider: Homer Bradford Consulting Providers: Carol Pruitt Instructions Patient Instructions: Understanding Pleural Effusion Discharge Orders/Prescriptions Prescriptions: New ipratropium-albuterol 0.5 mg-3 mg(2.5 mg base)/3 mL solution for nebulization 3 ml inhalation Q4H PRN (Reason: shortness of breath or wheezing) Qty: 180 1RF prednisone 20 mg tablet 40 mg PO DAILY Qty: 10 0RF levofloxacin 750 mg tablet 750 mg PO DAILY Qty: 4 0RF Continued ipratropium-albuterol 0.5 mg-3 mg(2.5 mg base)/3 mL solution for nebulization 3 ml continuous nebulization ONCE Qty: 3 0RF nitroglycerin 0.4 mg tablet, sublingual 0.4 mg sublingual DAILY citalopram 10 mg tablet 10 mg PO DAILY ipratropium-albuterol 0.5 mg-3 mg(2.5 mg base)/3 mL solution for nebulization 3 ml inhalation Q20M PRN (Reason: shortness of breath) 30 Days Qty: 90 0RF Rx Instructions: for 3 doses methenamine hippurate 1 gram tablet 1 g PO BID Qty: 180 3RF Gemtesa 75 mg tablet 75 mg PO QDAY Qty: 90 3RF mupirocin 2 % ointment 1 applic topical TID quetiapine 200 mg tablet extended release 24 hr PO Gemtesa 75 mg tablet 75 mg PO DAILY albuterol sulfate [Ventolin HFA] 90 mcg/actuation HFA aerosol inhaler 1 - 2 puff inhalation Q4H PRN PRN (Reason: Wheezing) Qty: 1 0RF trazodone 100 mg Tablet 100 mg PO QHS Eliquis 5 mg Tablet 5 mg PO Q12 Qty: 60 0RF quetiapine 100 mg Tablet 200 mg PO BID Qty: 120 0RF lovastatin 40 mg tablet 20 mg PO QHS omeprazole 40 mg capsule,delayed release(DR/EC) 40 mg PO DAILY lorazepam 0.5 mg tablet 0.5 mg PO Q12H PRN (Reason: anxiety) aspirin 81 mg capsule 81 mg PO DAILY albuterol sulfate 90 mcg/actuation HFA aerosol inhaler 2 puff inhalation Q6H PRN (Reason: shortness of breath or wheezing) Qty: 8.5 0RF Changed furosemide 20 mg tablet 20 mg PO DAILY Qty: 30 2RF Discontinued spironolactone 25 mg tablet 25 mg PO DAILY nitrofurantoin monohyd/m-cryst 100 mg capsule 1 cap PO BID Referrals / Follow Up: Dallin Christopher DO [Med Staff - Active Staff, Pulmonary Medicine] - 06/17/25 12:45 pm Homer Bradford MD [Primary Care Provider, [facility]] - 06/10/25 1:00 pm Disposition Disposition (needs filled in before D/C Order can be placed): Home, Self Care Charges/Coding Visit Charges Inpatient E&M: 70426 Disch Hosp >30min
--- NOTE | 2025-05-28 12:34 | PHA.DC_ITS ---
Pharmacy [facility] Reconciliation Pharmacy Service has performed discharge medication reconciliation for this patient. The patient's discharge medication list was reviewed for discrepancies and discrepancies were resolved. Medications at Discharge Home Medications apixaban 5 mg tablet (Eliquis) 5 mg PO Q12 #60 tabs 11/07/24 quetiapine 100 mg tablet 200 mg (2 x 100 mg) PO BID #120 tabs 11/07/24 lorazepam 0.5 mg tablet 0.5 mg PO Q12H PRN anxiety 11/14/24 lovastatin 40 mg tablet 20 mg PO QHS 11/14/24 omeprazole 40 mg capsule,delayed release 40 mg PO DAILY 11/14/24 aspirin 81 mg capsule 81 mg PO DAILY 01/08/25 mupirocin 2 % topical ointment 1 applic topical TID 01/29/25 quetiapine 200 mg tablet,extended release 24 hr PO 01/29/25 vibegron 75 mg tablet (Gemtesa) 75 mg PO DAILY 01/29/25 citalopram 10 mg tablet 10 mg PO DAILY 01/31/25 ipratropium 0.5 mg-albuterol 3 mg (2.5 mg base)/3 mL nebulization soln 3 ml continuous nebulization ONCE shortness of breath #3 mL 01/31/25 ipratropium 0.5 mg-albuterol 3 mg (2.5 mg base)/3 mL nebulization soln 3 ml inhalation Q20M PRN shortness of breath 1 month #90 mL 01/31/25 nitroglycerin 0.4 mg sublingual tablet 0.4 mg sublingual DAILY 01/31/25 Gemtesa 75 mg tablet (vibegron) 75 mg PO QDAY #90 tabs 02/27/25 methenamine hippurate 1 gram tablet 1 g PO BID #180 tabs 02/27/25 albuterol sulfate 90 mcg/actuation aerosol inhaler 2 puff inhalation Q6H PRN shortness of breath or wheezing #8.5 grams 04/24/25 albuterol sulfate 90 mcg/actuation aerosol inhaler (Ventolin HFA) 1 - 2 puff inhalation Q4H PRN PRN Wheezing ##1 04/30/25 trazodone 100 mg tablet 100 mg PO QHS 05/24/25 furosemide 20 mg tablet 20 mg PO DAILY #30 tabs 05/28/25
--- NOTE | 2025-05-28 12:44 | CASEMGMT ---
OMARI DE SANTIAGO NOTE: Pt reports she does not have any nebulizer solution and would like Rx sent to [facility] retail pharmacy. She confirms she has a nebulizer. Message sent to Dr Pelaez re: same. Pt made aware of change in Lasix. She verifies she does have sufficient supply of Lasix. Walt CHRISTIAN RN CM
== END 2025-05-28 13:55 | disposition home or self-care (01) | DRG 140 ==
LOC: ED 15:52 → MS3 22:52
PROVIDERS: Internal Medicine Critical Care Medicine; Admitting Provider Internal Medicine; Emergency Provider Emergency Medicine; PCP Family Medicine; Visit Provider Student in an Organized Health Care Education/Training Program
DX: J44.1 Chronic obstructive pulmonary disease with (acute) exacerbation (principal); J96.01 Acute respiratory failure with hypoxia; Z68.41 Body mass index [BMI] 40.0-44.9, adult; N18.32 Chronic kidney disease, stage 3b; E11.22 Type 2 diabetes mellitus with diabetic chronic kidney disease; I12.9 Hypertensive chronic kidney disease with stage 1 through stage 4 chronic kidney disease, or unspecified chronic kidney disease; F32.A Depression, unspecified; J45.909 Unspecified asthma, uncomplicated; J90 Pleural effusion, not elsewhere classified; E87.6 Hypokalemia; E66.01 Morbid (severe) obesity due to excess calories; K21.9 Gastro-esophageal reflux disease without esophagitis; F17.210 Nicotine dependence, cigarettes, uncomplicated; E78.5 Hyperlipidemia, unspecified; J98.11 Atelectasis; I25.10 Atherosclerotic heart disease of native coronary artery without angina pectoris; N32.81 Overactive bladder; R79.89 Other specified abnormal findings of blood chemistry; Z79.82 Long term (current) use of aspirin; Z79.01 Long term (current) use of anticoagulants; N39.41 Urge incontinence; R59.0 Localized enlarged lymph nodes; Z87.440 Personal history of urinary (tract) infections; Z86.73 Personal history of transient ischemic attack (TIA), and cerebral infarction without residual deficits; R91.1 Solitary pulmonary nodule; Z90.49 Acquired absence of other specified parts of digestive tract
CPT/HCPCS: 32555; 36415; 71046; 71260; 71275; 80048; 80053; 81001; 83605; 83615; 83735; 83880; 84100; 84155; 84443; 84484; 85025; 85379; 85610; 85730; 87070; 87075; 87205; 87631; 87633; 88108; 88305; 88313; 93005; 94640; 94668; 94762; 97110; 97162; 97165; 97530; 97535; 99252; 99285; 99406; Q9967; A4216; G0463; J1938

== ENCOUNTER 2025-06-30 13:07 | Inpatient (IN) | payer MEDICAID, SELFPAY ==
[2025-06-30] VITALS (12 sets, daily range): BP systolic 100–155; BP diastolic 54–121; PULSE 91–115; RESP 20–32; TEMP 36.6–36.8; O2SAT 91–97; BMI 42.4; BMI 40.7
--- NOTE | 2025-06-30 13:24 | CT_ITS ---
PROCEDURE: CTA CHEST W/WO CONTRAST 06/30/2025 REASON FOR EXAM: HYPOXIA TECHNIQUE: Procedure Code: [id number] Modality: CT Procedure: CTA CHEST W/WO CONTRAST Multiplanar Sagittal and Coronal images were obtained. 3D post processing was performed CONTRAST: Isovue 370 VOLUME: 76 mL One or more dose reduction techniques were used (e.g., Automated exposure control, adjustment of the mA and/or kV according to patient size, use of iterative reconstruction technique). RADIATION DOSE SUMMARY: CTDlvol: 25 mGy DLP: 397 mGycm COMPARISON: May 24, 2025, May 27, 2025 # of known CTs in the past 12 months: 5 # of known Cardiac Nuclear Medicine Studies in the past 12 months: 0 FINDINGS: Thoracic Aorta: No evidence of aortic rupture or dissection. Moderate atherosclerotic plaque. Heart: Heart is normal size. No pericardial effusion. Pulmonary Vessels: The timing and quality of the contrast bolus is diagnostic. There is no evidence of acute or chronic pulmonary embolus. Hardware: None Lymph nodes: Right lower paratracheal lymph node is 2.3 x 1.4 x 2.3 cm. Right hilar lymph node obscured by pleural fluid. Lungs and Airways: Respiratory motion artifact.. Left lung is clear. Compressive atelectasis right middle lobe and right lower lobe. Ground-glass opacity and subsegmental atelectasis in portions of the right upper lobe. Pleura: Iqytirhk-[id number] right pleural effusion. No pleural effusion on the left. No pneumothorax on either side. Upper Abdomen: Unremarkable Bones: Mild disc space narrowing, marginal endplate spurring. CT/CTA Chest W/WO Contrast IMPRESSION: 1. Compressive atelectasis right middle lobe right lower lobe from moderate-to -large pleural effusion; interval increase in size of pleural effusion.. Some ground-glass opacity is seen in the right upper lob e. A pneumonitis not excluded in the right upper lobe. Likely reactive right lower paratracheal lymph node. 2. Left lung is clear. Reading Location: [id number]
--- NOTE | 2025-06-30 13:25 | EKG12_ITS ---
Test Reason : SOB Blood Pressure : */* mmHG Vent. Rate : 108 BPM Atrial Rate : 108 BPM P-R Int : 166 ms QRS Dur : 84 ms QT Int : 354 ms P-R-T Axes : 52 -36 40 degrees QTcB Int : 474 ms Sinus tachycardia Left axis deviation Nonspecific ST and T wave abnormality Abnormal ECG Confirmed by JOSEPH GUSTAFSON, CHEL ([id number]), editor continuity and script JIGNA TERRAZAS ([id number]) on 07/02/2025 1:17:30 PM Referred By: Confirmed By: CHEL RUIZ MD
--- NOTE | 2025-06-30 13:26 | ED.VIS.DYS ---
HPI History of Present Illness Chief Complaint: Shortness of Breath Narrative Narrative: Patient is a 65-year-old female presenting to the emergency department for shortness of breath. Patient has a past medical history of COPD, asthma, CA, pulmonary embolism on Eliquis, active nicotine abuse. Patient was diagnosed with pneumonia reportedly a few weeks ago however patient is an extremely poor historian. On chart review from her ED visit on 04/30 it looks like she was diagnosed by physical exam at an urgent care. Was prescribed doxycycline at that time. She states that 3 weeks ago she was told by her primary care doctor that she still had pneumonia and was placed on antibiotics and steroids. States that since then her shortness of breath has worsened. She is also endorsing left-sided chest pain. She does not normally wear oxygen. She states she has been using her nebulizers at home with some mild relief in her symptoms. Endorses a dry cough. Denies fever, chills, diaphoresis, nausea, vomiting, abdominal pain. Denies any lower extremity edema. [facility] Medical History Pleural effusion on right Elevated troponin Elevated d-dimer Erythrocytosis Pleural effusion, right Osteoporosis Kidney disease CKD stage 3b, GFR 30-44 ml/min Overactive bladder Decubitus ulcer of buttock, stage 1 Encounter for smoking cessation counseling History of COPD Urinary tract infection History of echocardiogram Wears glasses Anxiety Depression Post-menopausal History of renal disease High cholesterol Back pain TIA (transient ischemic attack) Gastric reflux Smoker Shortness of breath on exertion History of pain when walking History of edema Cardiology follow-up encounter History of heart attack Chest pain History of left heart catheterization (LHC) (~12/30/20) CKD (chronic kidney disease) stage 3, GFR 30-59 ml/min Lung nodule COPD (chronic obstructive pulmonary disease) Paroxysmal atrial fibrillation Elevated liver enzymes Acute respiratory failure with hypoxia Stroke IBS (irritable bowel syndrome) Hyperlipidemia Heart disease Migraines Frequent headaches Gastrointestinal problem Diabetes History of back problems Asthma Arthritis Home Medications ?Medication ?Instructions ?Recorded ?Last Taken ?Type apixaban 5 mg tablet (Eliquis) 5 mg PO Q12 #60 tabs 11/07/24 Unknown Rx quetiapine 100 mg tablet 200 mg (2 x 100 mg) PO BID #120 11/07/24 Unknown Rx tabs lorazepam 0.5 mg tablet 0.5 mg PO Q12H PRN anxiety 11/14/24 Unknown History lovastatin 40 mg tablet 20 mg PO QHS 11/14/24 Unknown History omeprazole 40 mg capsule,delayed 40 mg PO DAILY 11/14/24 Unknown History release aspirin 81 mg capsule 81 mg PO DAILY 01/08/25 Unknown History mupirocin 2 % topical ointment 1 applic topical TID 01/29/25 Unknown History quetiapine 200 mg tablet,extended 200 mg PO DAILY 01/29/25 Unknown History release 24 hr vibegron 75 mg tablet (Gemtesa) 75 mg PO DAILY 01/29/25 Unknown History citalopram 10 mg tablet 10 mg PO DAILY 01/31/25 Unknown History ipratropium 0.5 mg-albuterol 3 mg 3 ml continuous nebulization ONCE 01/31/25 Unknown Clinic (2.5 mg base)/3 mL nebulization shortness of breath #3 mL soln ipratropium 0.5 mg-albuterol 3 mg 3 ml inhalation Q20M PRN shortness 01/31/25 Unknown Rx (2.5 mg base)/3 mL nebulization of breath 1 month #90 mL soln nitroglycerin 0.4 mg sublingual 0.4 mg sublingual DAILY 01/31/25 Unknown History tablet Gemtesa 75 mg tablet (vibegron) 75 mg PO QDAY #90 tabs 02/27/25 Unknown Rx methenamine hippurate 1 gram tablet 1 g PO BID #180 tabs 02/27/25 Unknown Rx albuterol sulfate 90 mcg/actuation 2 puff inhalation Q6H PRN 04/24/25 Unknown Rx aerosol inhaler shortness of breath or wheezing #8.5 grams albuterol sulfate 90 mcg/actuation 1 - 2 puff inhalation Q4H PRN PRN 04/30/25 Unknown Rx aerosol inhaler (Ventolin HFA) Wheezing ##1 trazodone 100 mg tablet 100 mg PO QHS 05/24/25 Unknown History furosemide 20 mg tablet 20 mg PO DAILY #30 tabs 05/28/25 Unknown Rx ipratropium 0.5 mg-albuterol 3 mg 3 ml inhalation Q4H PRN shortness 05/28/25 Unknown Rx (2.5 mg base)/3 mL nebulization of breath or wheezing #180 mL soln levofloxacin 750 mg tablet 750 mg PO DAILY #4 tabs 05/28/25 Unknown Rx prednisone 20 mg tablet 40 mg (2 x 20 mg) PO DAILY #10 tabs 05/28/25 Unknown Rx Allergy/AdvReac Type Severity Reaction Status Date / Time Penicillins Allergy Intermediate Hives Verified 06/30/25 13:07 carbamazepine (From Tegretol) AdvReac Intermediate Nausea Verified 06/30/25 13:07 benztropine AdvReac Unknown Verified 06/30/25 13:07 diazepam (From Valium) AdvReac Other Verified 06/30/25 13:07 Sulfa (Sulfonamide AdvReac Nausea Verified 06/30/25 13:07 Antibiotics) thioridazine AdvReac Nausea Verified 06/30/25 13:07 thioridazine HCl (From AdvReac Other Verified 06/30/25 13:07 M[place]) Family History Grandmother Cancer stomach Father Cancer lung Sister Breast cancer Surgical History Hx of surgical procedure History of carpal tunnel surgery History of elbow surgery H/O shoulder surgery H/O hand surgery H/O dilation and curettage Hx of cholecystectomy History of tonsillectomy Social History housing: homeless Smoking Status: Heavy Smoker (>10/day) alcohol intake: never substance use type: does not use caffeine: Yes what type of physical activity do you participate in: walking seatbelt use: always do you feel safe at home: Yes ROS ROS ED ROS Narrative See HPI EXAM Physical Exam Narrative Exam Narrative: Vital signs: Reviewed General: Alert and oriented x 3. No acute distress. Chronically ill-appearing. HEENT: Head is normocephalic and atraumatic, sinuses nontender, pupils equal round and reactive. Nares are patent. Oropharynx and throat exams normal. Neck: Supple without lymphadenopathy nontender Cardiovascular: Tachycardic rate and regular rhythm, no murmurs. No rubs or gallops. Normal S1 and S2 Respiratory: Decreased lung sounds on the right lower and right upper. No wheezing heard on end expiration in left upper and left lower. On 3 L nasal cannula, baseline on RA. Abdominal: Soft and nontender. Normal bowel sounds. No guarding or rebound. Nonsurgical abdomen Extremities: No lower extremity edema. No tenderness. No bruising. Normal range of motion. Normal sensation. Skin: No rash or redness. The rest of the physical exam is unremarkable Const Vital Signs: 06/30/25 13:07 06/30/25 13:20 06/30/25 13:21 Temperature 97.9 F 97.9 F Temperature Source Temporal Oral Pulse Rate 105 H 115 H Respiratory Rate 26 H 28 H Respiratory Effort Short of Breath Respiratory Depth Normal Respiratory Pattern Tachypnea Blood Pressure 155/121 H 115/66 Blood Pressure Mean 132 82 Pulse Ox 94 94 Oxygen Delivery Method Room Air Nasal Cannula Nasal Cannula Oxygen Flow Rate (L/min) 3 3 06/30/25 13:25 06/30/25 13:36 06/30/25 14:07 Temperature Temperature Source Pulse Rate 107 H 94 Respiratory Rate 20 H 32 H Respiratory Effort Respiratory Depth Respiratory Pattern Normal Blood Pressure 133/94 H Blood Pressure Mean 107 Pulse Ox 97 Oxygen Delivery Method Nasal Cannula Room Air Oxygen Flow Rate (L/min) 3 3 06/30/25 14:07 06/30/25 14:21 06/30/25 15:00 Temperature 97.8 F 98.3 F Temperature Source Oral Oral Pulse Rate 100 103 H 98 Respiratory Rate 30 H 26 H Respiratory Effort Respiratory Depth Respiratory Pattern Blood Pressure 114/93 H 114/93 H 114/76 Blood Pressure Mean 100 100 88 Pulse Ox 96 95 92 Oxygen Delivery Method Nasal Cannula Nasal Cannula Oxygen Flow Rate (L/min) 3 1 MDM MDM MDM Narrative Medical decision making narrative: Patient is a 65-year-old female presenting to the emergency department for dyspnea and chest pain. She has been seen here twice in the past 2 months for the same complaint. Patient was seen and examined. She is tachycardic, tachypneic and hypoxic in the 80s on arrival on room air, placed on nasal cannula. Resting in bed comfortably, no acute distress. Given 2 duoneb breathing treatments and 125 mg IV Solu-Medrol given patients wheezing. Differential includes but is not limited to: Pneumonia, sepsis, pleural effusion, COPD exacerbation, ACS, PE, URI EKG shows sinus tachycardia at [address] and T wave abnormalities. Does not meet STEMI criteria. No dysrhythmia. Looks very similar to prior EKG on May 24, 2025. VBG with no respiratory acidosis, pH of 7.390, pco2 41.1. CBC with mild leukocytosis of 14.0 however the patient was on steroids and may contribute to this. Lactic elevated at 2.9. Does meet sepsis criteria, blood cultures obtained. Fluid bolus started. Rocephin and azithromycin given for likely resp source of symptoms. Hemoglobin is 16.4. BMP with hypokalemia 2.7, oral repletion given. Elevated creatinine however this is around her baseline. BNP within normal limits. Troponin elevated at 27, baseline in the low 20s. CTA chest shows compressive atelectasis right middle lobe right lower lobe from [id number] pleural effusion; interval increase in size of pleural effusion.. Some ground-glass opacity is seen in the right upper lobe. A pneumonitis not excluded in the right upper lobe. Likely reactive right lower paratracheal lymph node. Left lung is clear. Patient reevaluated and still tachypneic and requiring O2. She does have better lung sounds after the DuoNeb breathing treatment. Will require admission for new oxygen requirement. Unable to complete a thoracentesis given the patient is on Eliquis and her last dose was this morning. I think the pleural effusion is definitely significantly contributing to her hypoxia requiring oxygen. Admitted to hospitalist, Dr. Guillen. Clinical impression Hypoxia Pneumonia Pleural effusion Elevated lactate Hypokalemia History & Record Review Discussion w/independent historian: Patient Additional record(s) reviewed:: Prior inpatient record and Prior ED visit Lab Data Attestation: I reviewed the patient's lab results. Labs: Laboratory Results - last 24 hr 06/30/25 13:36 WBC 14.0 H RBC 5.28 Hgb 16.4 H Hct 50.6 H MCV 95.8 MCH 31.1 MCHC 32.4 RDW Std Deviation 51.8 H RDW Coeff of Robert 14.6 Plt Count 266 MPV 11.1 Immature Gran % (Auto) 0.200 Neut % (Auto) 82.3 H Lymph % (Auto) 8.3 L [place] % (Auto) 7.9 Eos % (Auto) 0.9 Baso % (Auto) 0.4 Absolute Neuts (auto) 11.5 H Absolute Lymphs (auto) 1.16 Nucleated RBC % 0 Sodium 141 Potassium 2.7 L* Chloride 101 Carbon Dioxide 23.5 Anion Gap 16 H BUN 11 Creatinine 1.36 H Est GFR (MDRD) Non-Af 44 L BUN/Creatinine Ratio 7.9 L Glucose 108 H Lactic Acid 2.9 H* Calcium 9.4 Troponin T High Sens 27 H D NT pro BNP II 148 ABG Data ABG results: ABG 06/30/25 13:42 Specimen Type TYRON Sample Site Not entered VBG pH 7.39 VBG pO2 23 L VBG HCO3 25 VBG Total CO2 26 VBG O2 Sat (Calc) 39 L VBG Base Excess 0 POC Mix VBG pCO2 Pt Tmp 41.1 O2 Delivery Device Not entered Radiography Diagnostic Testing: Clinical Impression(s) from Imaging Studies Chest CTA 06/30/25 13:24 IMPRESSION: 1. Compressive atelectasis right middle lobe right lower lobe from [id number] pleural effusion; interval increase in size of pleural effusion.. Some ground-glass opacity is seen in the right upper lobe. A pneumonitis not excluded in the right upper lobe. Likely reactive right lower paratracheal lymph node. 2. Left lung is clear. Reading Location: [id number] Discharge Plan Triage Chief Complaint: Shortness of Breath ED Provider: Farnaz Scales Dx/Rx/DC Orders Prescriptions: No Action ipratropium-albuterol 0.5 mg-3 mg(2.5 mg base)/3 mL solution for nebulization 3 ml continuous nebulization ONCE Qty: 3 0RF nitroglycerin 0.4 mg tablet, sublingual 0.4 mg sublingual DAILY citalopram 10 mg tablet 10 mg PO DAILY ipratropium-albuterol 0.5 mg-3 mg(2.5 mg base)/3 mL solution for nebulization 3 ml inhalation Q20M PRN (Reason: shortness of breath) 30 Days Qty: 90 0RF Rx Instructions: for 3 doses methenamine hippurate 1 gram tablet 1 g PO BID Qty: 180 3RF Gemtesa 75 mg tablet 75 mg PO QDAY Qty: 90 3RF mupirocin 2 % ointment 1 applic topical TID quetiapine 200 mg tablet extended release 24 hr 200 mg PO DAILY Gemtesa 75 mg tablet 75 mg PO DAILY albuterol sulfate [Ventolin HFA] 90 mcg/actuation HFA aerosol inhaler 1 - 2 puff inhalation Q4H PRN PRN (Reason: Wheezing) Qty: 1 0RF trazodone 100 mg Tablet 100 mg PO QHS furosemide 20 mg tablet 20 mg PO DAILY Qty: 30 2RF ipratropium-albuterol 0.5 mg-3 mg(2.5 mg base)/3 mL solution for nebulization 3 ml inhalation Q4H PRN (Reason: shortness of breath or wheezing) Qty: 180 1RF prednisone 20 mg tablet 40 mg PO DAILY Qty: 10 0RF levofloxacin 750 mg tablet 750 mg PO DAILY Qty: 4 0RF Eliquis 5 mg Tablet 5 mg PO Q12 Qty: 60 0RF quetiapine 100 mg Tablet 200 mg PO BID Qty: 120 0RF lovastatin 40 mg tablet 20 mg PO QHS omeprazole 40 mg capsule,delayed release(DR/EC) 40 mg PO DAILY lorazepam 0.5 mg tablet 0.5 mg PO Q12H PRN (Reason: anxiety) aspirin 81 mg capsule 81 mg PO DAILY albuterol sulfate 90 mcg/actuation HFA aerosol inhaler 2 puff inhalation Q6H PRN (Reason: shortness of breath or wheezing) Qty: 8.5 0RF Primary Care Provider: Homer Bradford Referrals: Homer Bradford MD [Primary Care Provider, Family Practice] Print Language: Maltese
[2025-06-30 13:47] LABS: SITE Not entered; VBG BASE EXCESS 0 mmol/L (-1.0-3.5); VBG PO2 23 mmHg (25-40); VBG SO2 39 % (50-70); VBG TCO2 26 mmol/L (23-33)
[2025-06-30 13:52] LABS: Hematocrit 50.6 % (37-47); Hemoglobin 16.4 g/dL (12.0-15.0); Immature Granulocytes Count 0.030 X10^3/uL (0.0-0.0); Mean Corp Hgb Conc 32.4 g/dL (32-36); Mean Corpuscular Volume 95.8 fL (81-99); Mean Platelet Vol. 11.1 fl (6.2-12.0); NRBC Flagged by Analyzer 0 % (0-5); Platelet Count 266 K/mm3 (150-450); RBC Distribution Width CV 14.6 % (11.6-14.6); RBC Distribution Width SD 51.8 fl (35.1-43.9); Red Blood Count 5.28 M/mm3 (4.2-5.4); White Blood Count 14.0 K/mm3 (4.4-11.0)
--- OUTSIDE RECORDS SUMMARY | 2025-06-30 13:56 | XMS RPT_ITS | CCD ---
Author Organization [facility] Inform ion Partnership [facility] Care Team Providers Care Channel Lip Stiffener Insoles Name Role Phone Dorothy Fletcher MD Unavailable [...] Dr. Homer Bradford Referring Provider Eliel DILL, CHILDREN'S LUNCHROOM SUPERVISOR-C Taylor Attending Provider HOMER BRADFORD MD Primary Care Physician Dr. Homer Bradford Primary Care Provider Dr. Dallin Christopher Attending Provider Dr. Dallin Christopher Referring Provider Dr. Dallin Christopher Other Provider Dr. Shahram Sarmiento Attending Provider Dr. Homer Bradford Referring Provider Eliel DILL, CHILDREN'S LUNCHROOM SUPERVISOR-C Taylor Attending Provider Homer Bradford MD Primary Care Provider Homer Bradford MD Primary Care Provider Dr. Homer Bradford Primary Care Provider Dr. Homer Bradford Referring Provider Eliel DILL, CHILDREN'S LUNCHROOM SUPERVISOR-C Taylor Attending Provider Homer Bradford MD Primary Care Provider Homer Bradford MD Primary Care Provider Kiah MEJIA.RDA, Mone Unavailable Meagan Yusuf PA-C Unavailable Broderick Minor Primary Care Provider [phone] Dr. Homer Bradford MD Primary Care Provider Randy Cabrales MD Emergency Provider [phone] Wilfredo Denton DO Admit Provider Dr. Wilfredo Denton DO Other Provider Jonahtan Butcher MD Other Provider Unavailable Ronak GUSTAFSON, [...] Dr. Tanner Other Provider Unavailable Teto GUSTAFSON, Marhta Other Provider Unavailable Robert GUSTAFSON, Dr. Lara [...] Reynaldo GUSTAFSON, Dr. Sandoval Other Provider Aga GUSTAFSNO, Dr. Barber Other Provider Raquel GUSTAFSON, Dr. [...] Tomas Attending Provider Karina GUSTAFSON, Dr. Guevara Mcglil Attending Provider Robert GUSTAFSON, Dr. Lara Other Provider Unavailab Dr. Issa Engel MD Emergency Provider Dane GUSTAFSON, Dr. Lauren L Attending Provider Dane GUSTAFSON, Dr. Lauren Barajas Admit Provider Sanchez GUSTAFSON, Homer Trujillo Primary Care Provider [phone] Kiah MEJIA.RDA, Mone Unavailable Paramjit CORRALES, Meagan Unavailable Broderick [...] Provider Minnie GUSTAFSON, Dr. Lynn Other Provider [phone] Marilou GUSTAFSON, Dr. Alves Other Provider Isreal GUSTAFSON, Dr. Weems Other Provider Alba GUSTAFSON, Dr. England Other Provider [phone] Dr. Stuart Balbuena MD Other Provider [...] Marc GUSTAFSON, Dr. Matt Candelario Other Provider [phone] Lilia GUSTAFSON, Dr. Gutierrez Other Provider [phone] Tom GUSTAFSON, Dr. Quintero Other Provider Blake GUSTAFSON, Dr. Celis Other Provider Khushi GUSTAFSON, Dr. Wright Other Provider [phone] Khari GUSTAFSON, Dr. Galvez Other Provider [phone] Kingsley GUSTAFSON, Dr. Hahn Other Provider Jourdan GUSTAFSON, Dr. Garcia Other Provider [phone] Rishabh GUSTAFSON, Dr. Ludwig Other Provider [facility] jayashree Lamb MD, Dr. Terry Other Provider Chuck GUSTAFSON, Dr. Avelar Other Provider Bakari GUSTAFSON, Dr. Marte Other Provider Guille GUSTAFSON, Dr. Carter Other Provider [phone] Elisabeth NOVAK, Dr. Bush Other Provider [phone] Rosalinda GUSTAFSON, Dr. Sotelo Other Provider Aaron GUSTAFSON, Dr. Waldrop Other Provider Magy NOVAK, Dr. Salazar Other Provider Sergio GUSTAFSON, Dr. Dhillon Other Provider Jesus GUSTAFSON, Dr. Perry Other Provider Keon GUSTAFSON, Dr. Green Other Provider Dr. Dallin Christopher DO Attending Provider [phone] Afsaneh GUSTAFSON, Dr. Villalobos Attending Provider Sanchez GUSTAFSON, Dr. Coronel Primary Care Provider Samra GUSTAFSON, Randy Emergency Provider Dr. Luis Antonio Navarro DO Referring Provider Keon GUSTAFSON, Dr. Green Referring Provider Kate GUSTAFSON, Dr. Vijay Trujillo Attending Provider Meagan Heredia Referring Provider Kate GUSTAFSON, Dr. Vijay Trujillo Other Provider Sanchez GUSTAFSON, Dr. Coronel Referring Provider Eliel CHILDREN'S LUNCHROOM SUPERVISOR-C, Taylor Attending Provider Anjali GUSTAFSON, Dr. Rodriguez Attending Provider Anjali GUSTAFSON, Dr. Rodriguez Attending Provider Kate GUSTAFSON, Dr. Vijay Trujillo Other Provider Sanchez GUSTAFSON, Dr. Coronel Primary Care Provider Tavares GUSTAFSON, Dr. Parsons Emergency Provider Dane GUSTAFSON, Dr. Lauren Barajas Admit Provider Dane GUSTAFSON, Dr. Lauren Barajas Other Provider Sanchez GUSTAFSON, Dr. Coronel Primary [...] Marc GUSTAFSON, Dr. Matt Candelario Other Provider [phone] Lilia GUSTAFSON, Dr. Gutierrez Other Provider [phone] Tom GUSTAFSON, Dr. Quintero Other Provider Blake GUSTAFSON, Dr. Celis Other Provider Khushi GUSTAFSON, Dr. Wright Other Provider Khari GUSTAFSON, Dr. Galvez Other Provider [phone] Queta Wynn MD, Dr. Hahn Other Provider Jourdan GUSTAFSON, Dr. Garcia Other Provider Rishabh GUSTAFSON, Dr. Ludwig Other Provider Unavailricha Lamb MD, Dr. Terry Other Provider Chuck GUSTAFSON, Dr. Avelar Other Provider [phone] Bakari GUSTAFSON, Dr. Marte Other Provider Guille GUSTAFSON, Dr. Carter Other Provider Elisabeth NOVAK, Dr. Bush Other Provider Rosalinda GUSTAFSON, Dr. Sotelo Other Provider Aaron GUSTAFSON, Dr. Waldrop Other Provider [phone] Magy NOVAK, Dr. Salazar Other Provider Sergio GUSTAFSON, Dr. Dhillon Other Provider Jesus GUSTAFSON, Dr. Perry Other Provider Keon GUSTAFSON, Dr. Green Other Provider [phone] Dr. Luis Antonio Navarro DO Referring Provider Ashwin NOVAK, Dr. Zamarripa Attending Provider Afsaneh GUSTAFSON, Dr. Villalobos Attending Provider Keon GUSTAFSON, Dr. Green Referring Provider Anjali GUSTAFSON, Dr. Rodriguez Attending Provider Kate GUSTAFSON, Dr. Vijay Trujillo Attending Provider Meagan Heredia Referring Provider Dr. Vijay Love MD Other Provider Sanchez GUSTAFSON, Dr. Coronel Referring Provider Taylor Regan Attending Provider Broderick Minor Primary Care Physician Sanchez GUSTAFSON, Dr. Coronel Primary Care Physician Dr. Issa Chaipn MD Emergency Department Physician Dane GUSTAFSON, Dr. Lauren Barajas Admitting Physician Dane GUSTAFSON, Dr. Lauren Barajas Nurse Practitioner Keon GUSTAFSON, Dr. Green Attending Physician Ramon NOVAK, Dr. Salmon Nurse Practitioner Ramon NOVAK, Dr. Salmon Attending Physician Lou GUSTAFSON, Dr. Nava Nurse Practitioner [phone] Teri GUSTAFSON, Dr. Bowman Nurse Practitioner [phone] Torsten GUSTAFSON, Dr. Omalley Nurse Practitioner [phone] Ashwin NOVAK, Dr. Zamarripa Nurse Practitioner Marc GUSTAFSON, Dr. Matt Candelario Nurse Practitioner [phone] Lilia GUSTAFSON, Dr. Gutierrez Nurse Practitioner Tom GUSTAFSON, Dr. Quintero Nurse Practitioner [phone] Blake GUSTAFSON, Dr. Celis Nurse Practitioner Khushi GUSTAFSON, Dr. Wright Nurse Practitioner [phone] Khari GUSTAFSON, Dr. Galvez Nurse Practitioner [phone] Kingsley GUSTAFSON, Dr. Hahn Nurse Practitioner [phone] Jourdan GUSTAFSON, Dr. Garcia Nurse Practitioner [phone] [address]ish[address]h G[address]ON, Dr. Ludwig Nurse Practitioner [facility] Zainab GUSTAFSON, Dr. Terry Nurse Practitioner [phone] Chuck GUSTAFSON, Dr. Avelar Nurse Practitioner [phone] Bakari GUSTAFSON, Dr. Marte Nurse Practitioner Guille GUSTAFSON, Dr. Carter Nurse Practitioner [phone] Elisabeth NOVAK, Dr. Bush Nurse Practitioner Rosalinda GUSTAFSON, Dr. Sotelo Nurse Practitioner [phone] Aaron GUSTAFSON, Dr. Waldrop Nurse Practitioner Magy NOVAK, Dr. Salazar Nurse Practitioner [phone] Sergio GUSTAFSON, Dr. Dhillon Nurse Practitioner [phone] Jesus GUSTAFSON, Dr. Perry Nurse Practitioner Keon GUSTAFSON, Dr. Green Nurse Practitioner Ashwin NOVAK, Dr. Zamarripa Attending Physician Afsaneh GUSTAFSON, Dr. Villalobos Attending Physician Anjali GUSTAFSON, Dr. Rodriguez Attending Physician Kate GUSTAFSON, Dr. Vijay Trujillo Attending Physician Kate GUSTAFSON, Dr. Vijay Trujillo Nurse Practitioner Eliel CHILDREN'S LUNCHROOM SUPERVISOR-C, Taylor Attending Physician Sanchez GUSTAFSON, Dr. Coronel Primary Care Physician Blair GUSTAFSON, Dr. Alcantar Attending Physician Blair GUSTAFSON, Dr. Alcantar Emergency Department Phys ician Meagan Heredia Referring Unavailable Vijay Love Attending Unavailable Sanchez, Homer Primary Care Unavailable Sanchez, Homer Primary Care Unavailable Randy Cabrales Attending Unavailable Wyatt Amos Attending Unavailabl e Sanchez, Homer Primary Care Unavailable Edmond Carol Admitting Unavailable Carol Pruitt Consulting Unavailable Sanchez, Homer Primary Care Unavailable Shani Pelaez Attending Unavailable Peter Herbert Attending Unavailable White, Lauren L Consulting Unavailable White, Lauren L Admitting Unavailable Sanchez, Homer Primary Care Unavailable Luis Antonio Navarro Consulting Unavailable Sanchez, Homer Primary Care Unavailable Meagan Heredia Referring Unavailable Vijay Love Attending Unavailable Meagan Heredia Referring Unavailable Vijay Love Attending Unavailable Sanchez, Homer Primary Care Unavailable Sanchez, Homer Primary Care Unavailable Azam Guillen Attending Unavailable White, Lauren L Consulting Unavailable White, Lauren L Admitting Unavailable Sanchez, Homer Primary Care Unavailable Azam Guillen Attending Unavailable White, Lauren L Consulting Unavailable White, Lauren L Admitting Unavailable Tereletsky Azam Consulting Unavailable Wilfredo Denton Attending Unavailable Sanchez, Homer Primary Care Unavailable Eliel DILL, Taylor Attending Unavailable Sanchez, Homer Referring Unavailable Sanchez, Homer Primary Care Unavailable Jonathan Butcher Consulting Unavailable Wilfredo Denton Admitting Unavailable Guevara Collins Attending Unavailable Sanchez, Homer Primary Care Unavailable Adeli, Amir Consulting Unavailable Hinduja, Leyda Consulting Unavailable Eduard, Hodan Consulting Unavailable Zha, Leah Consulting Unavailable Marilou, Long Consulting Unavailable Isreal, Faustina Consulting Unavailable Bittar, Tomás Consulting Unavailable Stuart Balbuena Consulting Unavailable Kamar Redmond Consulting Unavailable Chioma Hsieh Consulting Unavailable Dennys Ryan Consulting Unavailable Lori Jacobs Consulting Unavailable Elisabeth Yung Consulting Unavailable Raquel, sandhya Yanick Consulting UnavailFrank Bradley Consulting Unavailable Ariella Morrison Consulting Unavailable Sandor Zaldivar Consulting Unavailable Flores Pruitt Consulting Unavailable Martha Irene Consulting Unavailable Wilfredo Denton Consulting Unavailable Guevara Collins Consulting Unavailable Peter Herbert Referring Unavailable Sanchez, Homer Primary Care Unavailable Wilfredo Shelby Attending Unavailable Marco Jones Attending Unavailable Marco Jones Consulting Unavailable Shani Pelaez Attending Unavailable Carol Pruitt Consulting Unavailable Carol Pruitt Admitting Unavailable Sanchez, Homer Primary Care Unavailable Latanya, Shani Erika Consulting Unavailable Meagan Heredia Referring Unavailable Vijay Love Attending Unavailable Sanchez, Homer Primary Care Unavailable Sanchez, Homer Referring Unavailable Sanchez, Homer Primary Care Unavailable Jennifer Alba Attending Unavailable Carol Pruitt Attending Unavailable Sanchez, Homer Primary Care Unavailable Sanchez, Homer Referring Unavailable Sanchez, Homer Primary Care Unavailable Eliel CHILDREN'S LUNCHROOM SUPERVISOR, Taylor Attending Unavailable Sanchez, Homer Primary Care Unavailable Genoveva Garcia Attending UnavailJonathan Headley Consulting Unavailable Sanchez, Homer Primary Care Unavailable Marco Jones Attending Unavailable Corrie Wilfredo Admitting Unavailable Adeli, Amir Consulting Unavailable Hinduja, Leyda Consulting Unavailable Eduard, Hodan Consulting Unavailable Zha, Leah Consulting Unavailable Marilou, Long Consulting Unavailable Isreal, Faustina Consulting Unavailable Bittar, Tomás Consulting Unavailable Stuart Balbuena Consulting Unavailable Kamar Redmond Consulting Unavailable Chioma Hsieh Consulting Unavailable Dennys Ryan Consulting Unavailable Reynaldo, Lori Consulting Unavailable Ridha, Mohamed Consulting Unavailable Zaghlouleh, Mhd Yanick Consulting Unavailabl e Yusuf, Peter Consulting Unavailable Ariella Morrison Consulting Unavailable Sandor Zaldivar Consulting Unavailable Flores Pruitt Consulting Unavailable Martha Irene Consulting Unavailable Wilfredo Denton Consulting Unavailable Guevara Collins Consulting Unavailable Homer Bradford Primary Care Unavailable Ortiz Pinto Attending Unavailable WhiteLauren Consulting Unavailable WhiteLauren L Attending Unavailable White Lauren L Admitting Unavailable Homer Bradford Primary Care Unavailable Homer Bradford Primary Care Unavailable Lauren Vela Attending Unavailable Peter Herbert Attending Unavailable Luis Antonio Navarro Consulting Unavailable Peter Herbert Consulting Unavailable Dallin Christopher Attending Unavailable Oziel Keating Consulting Unavailable Alejo Hill Consulting Unavailable Shahram Sarmiento Consulting Unavailable Leon Santos Consulting Unavailable Dallin Christopher Consulting Unavailable Wili Degroot Consulting UnavailAndi Lopez Consulting Unav Kyle Urrutia Consulting Unavailable Eleazar Barber Consulting Unavailable Azam Biswas Consulting Unavailable Citlali Tinsley Consulting Unavailable Kwan, Paredes Consulting Unavailable Guille, Raul Consulting Unavailable Martin Bhatti Consulting Unavailable Radha Soliman Consulting Unavailable Elijah Blake Consulting Unavailable Valentino Woods Consulting Unavailable Deepak Tellez Consulting Unavailable Palma Walker Consulting Unavailable Lalita Lozano Consulting UnavailOrlando Alberto Consulting Unavailable Radha Abarca Consulting Unavailable Jael Kennedy Consulting Unavailable Estuardo Villegas Consulting Unavailable Mitzi Talbot Consulting UnavailMara Belcher Consulting Unavailable Matt Rodrigues Consulting Unavailable Bao Dc Consulting Unavailable Colby Williamson Consulting Unavailable Garrick Almaraz Consulting Unavailable Matt Tran Consulting Unavailable Lenny Lucia Consulting Unavailable Bea Sanches Consulting Unavailable Chung Diallo Consulting UnavailGuevara Kramer Consulting Unavailable Jet Talavera Consulting Unavailable Elisabeth Sky Consulting Unavailable Mukesh Cope Consulting Unavailable Jasper Au Consulting Unavailable Reggie Byers Consulting Unavailable Jovani Wynn Consulting Unavailable Carlota Sierra Consulting Unavailable Dallin Christopher Attending Unavailable Luis Antonio Navarro Referring Unavailable Luis Antonio Navarro Attending Unavailable Elijah Blake Consulting Unavailable Colby Williamson Consulting Unavailable Shahram Sarmiento Consulting Unavailable Dallin Christopher Consulting Unavailable Matt Tran Consulting Unavailable Matt Rodrigues Consulting Unavailable Leon Santos Consulting Unavailable Lalita Lozano Consulting UnavailKyle Cuevas Consulting Unavailable Lenny Lucia Consulting Unavailable Jovani Wynn Consulting Unavailable Radha Soliman Consulting Unavailable AlOziel woods Consulting Unavailable Lamb, Mara Consulting Unavailable Chuck, Valentino Consulting Unavailable IrEstuardo baugh Consulting Unavailable Guille, Raul Consulting Unavailable Dhehermelinda Eleazar Consulting Unavailable Deepak Tellez Consulting Unavailable Palma Walker Consulting Unavailable Martin Bhatti Consulting Unavailable Alejo Hill Consulting Unavailable Orlando Lee Consulting Unavailable Jennifer Alba Attending Unavailable Homer Bradford Referring Unavailable Homer Bradford Primary Care Unavailable ALIZE WILCOX Attending Unavailable HOMER BRADFORD Referring Unavailable HOMER BRADFORD A Primary Care Unavailable ORTIZ MASSEY Attending Unavailable HOMER BRADFORD Referring Unavailable HOMER BRADFORD A Primary Care Unavailable HOMER BRADFORD Attending Unavailable HOMER BRADFORD A Primary Care Unavailable HOMER BRADFORD Attending Unavailable HOMER BRADFORD A Primary Care Unavailable HOMER BRADFORD A Referring Unavailable CAROL BRADFORDREY A Primary Care Unavailable MEAGAN YUSUF Attending Unavailable HOMER BRADFORD Primary Care Unavailable MEAGAN YUSUF Referring Unavailable HOMER BRADFORD Primary Care Unavailable MEAGAN YUSUF Attending Unavailable HOMER BRADFORD Primary Care Unavailable HOMER BRADFORD Attending Unavailable SANCHEZ HOMER A Primary Care Unavailable Allergies Allergy Classification Reported Allergen(s) Allergy Type Date of Onset Reaction(s) Facility Anti-Epileptic Agents (1 source) carBAMazepine Drug Allergy 02-13-20 14 [facility] Anticholinergics (1 source) Benztropine Drug Allergy 02-13-20 14 Unknown [facility] Aspirin (1 source) Aspirin Drug Allergy 01-05-20 23 Unknown [facility] Work Phone: Benzodiazepines (1 source) diazePAM Drug Allergy 02-13-20 14 Unknown [facility] Opioid Agonists (1 source) Loperamide Drug Allergy 05-23-20 18 Other: See Comments [facility] Penicillins (antibiotic) (1 source) Penicillins Drug Allergy 03-30-20 06 Hives [facility] Streptococcus pneumoniae type 1 capsular polysaccharide antigen [...] polysaccharide antigen Drug Allergy 12-26-19 15 Intolerance [facility] Sulfonamides (antibiotic) (1 source) Sulfonamides (Antibiotic) Drug Allergy 11-24-19 16 [facility] Thioridazine (1 source) Th[facility]idazine Drug All[facility] 02-13-20 [facility] Benztropine; Translations: [BENZTROPINE] Drug Allergy 02-13-20 14 Unknown [facility] Work Phone: (20 sources) carBAMazepine; Translations: [CARBAMAZEPINE] Drug Allergy 02-13-20 14 GI Upset [facility] Work Phone: (20 sources) diazePAM; Translations: [DIAZEPAM] Drug Allergy 02-13-20 14 Unknown [facility] Work Phone: (20 sources) Loperamide; Translations: [loperamide] Drug Allergy 05-23-20 18 Other: See Comments [facility] Work Phone: (20 sources) Penicillins; Translations: [penicillins] Drug Allergy 03-30-20 06 Hives [facility] Work Phone: (20 sources) Streptococcus pneumoniae type [...] PS VACCINE] Drug Allergy 12-26-19 15 Intolerance [facility] Work Phone: (20 sources) Sulfonamides (Antibiotic); Translations: [sulfa drugs] Drug Intolerance 11-24-19 [facility] (20 sources) Thioridazine; Translations: [THIORIDAZINE] Drug Allergy 02-13-20 14 [facility]: (20 sources) Tetanus, Diphtheria Tox Absorb Adult,Child Booster; Translations: [TETANUS, DIPHTHERIA TOX ABSORB ADULT,CHILD BOOSTER] Drug Allergy 12-29-19 15 Swelling [facility] Work Phone: (20 sources) Thioridazine; Translations: [thioridazine HCl] Drug Allergy 08-25-19 22 Other [facility] (20 sources) Aspirin; Translations: [aspirin] Drug Allergy 01-05-20 23 [facility] Comment on above: Rash if aspirin is n ot coated (20 sources) Penicillins Drug Allergy 03-30-20 06 [facility] Work Phone: (17 sources) Penicillins Allergy to substance 09-12-19 23 [facility] (17 sources) Sulfonamides (Antibiotic) Propensity to adverse reactions 09-12-19 23 Nausea [facility] (20 sources) Penicillins Drug Allergy 03-30-20 [facility] (1 source) Benztropine Drug Allergy 05-24-20 25 [facility] (1 source) carBAMazepine Drug Allergy 05-24-20 25 [facility] (1 source) diazePAM Drug Allergy 05-24-20 25 [facility] (1 source) Penicillins Drug allergy (disorder) 05-24-20 25 [facility] (1 source) Sulfonamides (Antibiotic) Drug allergy (disorder) 05-24-20 25 [facility] (1 source) Thioridazine Drug Allergy 05-24-20 25 [facility] Medications Current Medications Medication Drug Class(es) Dates Sig (Normalized) Sig (Original) [id number] 200 actuat albuterol 0.09 mg/actuat metered dose [...] EVERY FOUR HOURS NEEDED. Dr. Christopher: Pulm 1 Each 3 11/14/2023 Active Start: 06-22-2017 [...] tablet by spencer th twice daily. Take by mouth twice daily. Take 1 tablet by spencer th twice daily. Per Cardio, Fish aspirin 81 mg oral tablet (20 sources) Platelet Aggregation Inhibitor, Nonsteroidal Anti-inflammatory Drug Start: 01-08-2025 take 1 capsule by mouth once daily Start: 01-08-2025 Start: 09-21-2024 End: 11-04-2024 take 1 tablet by mouth at breakfast Aspirin 81 mg Tablet,Chewable Discontinued 81 mg PO WITH BREAKFAST 30 30 0 September 21, 2024 1:00am November 04, 2024 [...] 1 tablet by spencer th once daily. benoxinate hydrochloride 4 mg/ml / [...] Status: Ordered COMPOUNDED PRESCRIPTION (20 sources) Start: COMPOUNDED PRESCRIPTION Indications: Urinary incontinence, unspecified type [...] capsule (3 sources) Histamine-1 Receptor Antagonist Start: End: take 1-2 capsules by mouth every four [...] (3 sources) Antiarrhythmic, Amide Local Anesthetic Start: 09-11-2 025 apply 1 dose transdermal route once [...] bedtime, # 30 tab(s), 5 Refill(s), Pharmacy: [place] [id number], 160, cm, 12/09/21 15:05:00 EDT, Height, kg, [...] above: Take 1 tablet by spencer twice daily as needed (anxiety). lovastatin 40 [...] month Dx: N39.46 and R15.9 240 Each 01/31/2024 Active Start: 06-09-2022 End: 01-30-2024 MEDICAL SUPPLY Indications: Mixed incontinence urge and stress (male)(female) , Incontinence of feces, unspecified fecal incontinence type Please replace pull up every 1.5-2 hrs while awake and 1-3 times a night to reduce risk of skin break down and secondary infections. #240 a month Dx: N39.46 and R15.9 240 Each 06/09/2022 01/30/2024 Discontinued Start: 06-09-2022 MEDICAL SUPPLY Indications: Mixed incontinence urge and stress (male)(female) , Incontinence of feces, unspecified fecal incontinence type Please replace pull up every 1.5-2 hrs while awake and 1-3 times a night to reduce risk of skin break down and secondary infections. #240 a month Dx: N39.46 and R15.9 240 Each 06/09/2022 Active Comment on above: Please replace [...] 0.4 mg tablet, sublingual (1 source) Start: 5 take 1 tablet under the tongue once daily Nitroglycerin 0.4 mg tablet, sublingual Active 0.4 mg SL DAILY January 31, 2025 12:00am omeprazole 40 mg delayed release oral capsule (20 sources) Proton Pump Inhibitor Start: 04-30-202 5 take 1 capsule by mouth once daily Start: 08-13-2015 End: 11-07-2024 take 1 capsule by mouth once daily Omeprazole 40 mg capsule,delayed release(DR/EC) Discontinued 40 mg PO DAILY November 18, 2023 12:00am November 07, 2024 4:43pm Gerd Comment on above: Take 1 capsule by [facility] once daily. phenylephrine hydrochloride 25 mg/ml ophthalmic [...] Comment on above: Take 1 tablet by [facility] once daily for 7 days. predniSONE 20 [...] tablet Discontinued 20 mg PO DAILY 5 0 September 12, 2022 1:00am March 04, 2023 11:23am Start: 09-07-2021 End: 09-28-2021 Prednisone 10 mg tablet Disc ontinued 10 mg PO DAILY September 07, 2021 1:00am September [...] 5:24pm Start: 11-07-2024 take 2 tablets by [facility] twice daily Start: 09-12-2024 End: 11-07-2024 take [...] Per psych Take 1 tablet by spencer twice daily. Per psych, Dr. Negrete tropicamide [...] mg tablet Active 75 mg PO daily 90 3 February 27, 2025 12:00am Start: 02-27-2025 Start: 2025 take 1 tablet by spencer once daily Start: 2025 take 1 tablet [...] Start: 11-07-2024 End: 01-08-2025 Start: 11-04-2024 End: 04-23-2025 take 1 tablet by mouth once daily [...] for shortness of breath or wheezing 0 0 September 07, 2021 1:00am November 07, [...] Comment on above: Take 1 capsule by [facility] twice daily. Take 1 capsule by [facility] once daily. Take 1 capsule by [facility] twice daily. Per NeuroDr. Calderón atorvastatin 10 mg oral tablet (9 [...] Comment on above: Take 1 tablet by [facility] twice daily as needed (muscle spasms). For [...] METER) monitoring kit (1 source) Start: 06-12-20 14 End: 05-29-20 Blood-Glucose Meter (FREESTYLE LITE METER) monitoring kit Indications: DM type 2 (diabetes mellitus, type 2) (HCC) Freestyle LITE Meter Kit - 1 Each [...] NMA INHALATION TWICE A DAY 1 February 24, 2022 11:00pm March 04, 2023 [...] Start: 02-25-2022 take 1 puff(s) by mo uth twice daily Budesonide-Formoterol (Symbicort) 160-4.5 mcg/actuation HFA aerosol inhaler Active 2 PUFF INHALATION TWICE A DAY February 24, 2022 11:00pm administer with spacer, rinse mouth after each use Start: 02-25-2022 take 1 puff(s) by mo uth twice daily Budesonide-Formoterol (Symbicort) 160-4.5 mcg/actuation HFA [...] HFA aerosol inhaler Discontinued 2 INH INHALATION Q12H June 22, 2017 1:00am May [...] Take 1 tablet by spencer once daily. Take 10 mg by mouth once daily. Take 1 tablet by spencer once daily. Per psych, Dr. Negrete 12 hr dextromethorphan hydrobromide 60 mg / guaiFENesin 1200 mg extended release oral tablet (8 sources) Uncompetitive Y-hoafsn-P-aspartat e Receptor Antagonist, Sigma-1 Agonist Start: 01-11-2025 [...] capsule (15 sources) Start: 03-04-2023 End: 11-07-2024 [place]-3 Fatty Acids-Fish Oil (Fish Oil) 360-1,200 mg capsule Discontinued 1 NMA PO TWICE A DAY March 04, 2023 12:00am November 07, 2024 4:43pm Joints Start: 03-04-2023 End: 11-07-2024 Start: 03-04-2023 take 1 capsule by mouth once d aily [place]-3 Fatty Acids-Fish Oil (Fish Oil) 360-1,200 mg capsule Active 1 CAP PO DAILY March 04, 2023 12:00am docusate sodium 50 mg / sennosides, [facility] 8.6 mg oral tablet (9 sources) Start: [...] unknown (3 sources) No information available. nystatin [id number] unt/ml topical cream (1 source) Polyene Antifungal [...] January 08, 2025 5:23pm polyethylene glycol 3350 58544 mg powder for oral solution (20 sources) [...] Chloride ([place] Na nadya) 0.65 % Aerosol,[place] Discontinued 2 NMA NASAL 3 TIMES DAILY NEEDED as needed for NASAL DRYNESS 0 0 September 07, 2021 1:00am March 04, 2023 11:23am Start: 09-07-2021 End: 03-04-2023 Sodium Chloride ([place] Na nadya) 0.65 % Aerosol,[place] Discontinued 2 SPRAY NASAL 3 TIMES DAILY [...] sources) Anticholinergic Start: 01-14-2014 End: 06-22-2017 Tiotropium [place] 1 PUFF inhaler Discontinued 1 NMA INHALATION DAILY January 14, 2014 12:00am June 22, 2017 2:44pm Start: 01-14-2014 End: 06-22-2017 Start: 01-14-2014 End: 06-22-2017 take 1 puff(s) by inhalation once daily Tiotropium [place] Discontinued 1 PUFF INHALATION DAILY January 14, [...] Acute and unspecified renal failure (17 sources) Ndoyo-av-flkcjlr renal failure; Translations: [Acute kidney failure, unspecified] [...] disease (3 sources) Chronic kidney disease; Translations: [Chronic kidney disease, stage 3 unspecified] Onset: 2 Chronic obstructive pulmonary disease and [...] Coronary arteriosclerosis; Translations: [Atherosclerotic heart disease of [place] coronary artery without angina pectoris] Onset: 5 [...] (20 sources) Patient encounter status; Translations: [Other mcfp (current) drug therapy] Onset: 7 11-20-2020 Episodic Other aftercare (1 source) 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; 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] 05-08-2025 Episodic Other [...] Constipation; Translations: [Constipation, unspecified] 11-22-2024 Episodic Other hematologic conditions (2 sources) Secondary polycythemia; Translations: [Secondary polycythemia] Onset: 5 Episodic Other hereditary and degenerative nervous system conditions (20 sources) Extrapyramidal disease; Translations: [Extrapyramidal and movement disorder, unspecified] Onset: 4 01-14-2014 Chronic Other hereditary and degenerative nervous system conditions (1 source) Movement disorder; Translations: [Extrapyramidal and movement disorder, unspecified] Onset: 2 Chronic Other hereditary and degenerative nervous system conditions (20 sources) Tardive dyskinesia; Translations: [Drug induced subacute dyskinesia] Onset: 0 03-12-2020 Episodic Other lower respiratory disease (20 sources) [...] of the respiratory system] 01-08-2025 Episodic Other lower respiratory disease (3 sources) Hypoxemia; Translations: [Hypoxemia] Onset: 5 Episodic Other lower respiratory disease (1 source) Shortness of breath; Translations: [Shortness of breath] Onset: 5 Episodic Other nervous system disorders (20 sources) [...] vascular disease, unspecified] Onset: 5 2025 Chronic Pleurisy; pneumothorax; pulmonary collapse (2 sources) Pleural effusion, not elsewhere classified; Translations: [Pleural effusion, not elsewhere classified] Onset: 5 Episodic Pneumonia (except that caused by tuberculosis or sexually transmitted disease) (1 source) Pneumonia, unspecified organism; Translations: [Pneumonia of right lower lobe due to infectious organism] Onset: 5 Episodic Prolapse of female genital organs (3 sources) [...] Comment on above: Ordered and due in J mukesh 2022 1 PPD FOR 47 YRS Syncope [...] Unclassified (2 sources) Appt will be with [employer] SUPERVISOR, Taylor Julian. Unclassified (1 source) Provide A Ride([phone]) will pick you up at 11-11:30, and [...] (19 sources) Drug therapy finding; Translations: [Other mcfp (current) drug therapy] Onset: 10-11-2017 10-11-2017 Episodic Other aftercare (1 source) Other mcfp (current) drug therapy; Translations: [Medication management] Onset: [...] of feces] Onset: 07-08-2017 07-08-2017 Episodic Other hereditary and degenerative nervous system conditions (3 sources) Drug induced subacute dyskinesia; Translations: [Drug induced subacute dyskinesia] Onset: 03-12-2020 Episodic Other lower respiratory disease (3 sources) [...] conditions (not mental disorders or infectious disease) (3 sources) Other specified abnormal findings of blood chemistry; Translations: [Other specified abnormal findings of blood chemistry] Onset: 07-16-2022 Episodic Other skin disorders (20 [...] Non obstructive CAD per cardiac cath @ [facility] 12/30/20 Residual codes; unclassified (1 source) Localized [...] Test Name Value Interpretation Reference Range Facility Basic Metabolic Profile (BMP )on 06-02-2025 BUN Normal 4-19 [facility] Comment on above: Result Comment: Canc elled via OM: Order cancelled - Patient discharged Performed By: #### L 500.2500, L100.0100 ####[facility] [address] [place], [address] BUN/CRE Normal 10-20 [facility] Comment on above: Result Comment: Canc elled via OM: Order cancelled - Patient discharged Performed By: #### L 500.2500, L100.0100 ####[facility] [address] [place], [address] Calcium Normal 7.6-11.0 [facility] Comment on above: Result Comment: Canc elled via OM: Order cancelled - Patient discharged Performed By: #### L 500.2500, L100.0100 ####[facility] [address] [place], [address] CL Normal 98-108 [facility] Comment on above: Result Comment: Canc elled via OM: Order cancelled - Patient discharged Performed By: #### L 500.2500, L100.0100 ####[facility] [address] [place], [address] CO2 Normal 21.0-32.0 [facility] Comment on above: Result Comment: Canc elled via OM: Order cancelled - Patient discharged Performed By: #### L 500.2500, L100.0100 ####[facility] [address] [place], [address] CREAT,SERUM Normal 0.70-1.20 [facility] Comment on above: Result Comment: Canc elled via OM: Order cancelled - Patient discharged Performed By: #### L 500.2500, L100.0100 ####[facility] [address] [place], [address] eGFR Normal >60 [facility] Comment on above: Result Comment: Canc elled via OM: Order cancelled - Patient discharged Performed By: #### L 500.2500, L100.0100 ####[facility] [address] [place], [address] GAP Normal 5-15 [facility] Comment on above: Result Comment: Canc elled via OM: Order cancelled - Patient discharged Performed By: #### L 500.2500, L100.0100 ####[facility] [address] [place], [address] GLU Normal 70-99 [facility] Comment on above: Result Comment: Canc elled via OM: Order cancelled - Patient discharged Performed By: #### L 500.2500, L100.0100 ####[facility] [address] [place], [address] Potassium Normal 3.3-5.1 [facility] Comment on above: Result Comment: Canc elled via OM: Order cancelled - Patient discharged Performed By: #### L 500.2500, L100.0100 ####[facility] [address] [place], [address] Basic Metabolic Profile (BMP) Normal 133-145 [facility] Comment on above: Result Comment: Canc elled via OM: Order cancelled - Patient discharged Performed By: #### L 500.2500, L100.0100 ####[facility] [address] [place], [address] CBC W/Diff, Automatedon 11-1 Absolute Neut Normal 2.0-7.7 [facility] Comment on above: Result Comment: Canc elled via OM: Order cancelled - Patient discharged Performed By: #### L 500.2500, L100.0100 ####[facility] [address] [place], [address] HCT Normal 37-47 [facility] Comment on above: Result Comment: Canc elled via OM: Order cancelled - Patient discharged Performed By: #### L 500.2500, L100.0100 ####[facility] [address] [place], [address] HGB Normal 12.0-15.0 [facility] Comment on above: Result Comment: Canc elled via OM: Order cancelled - Patient discharged Performed By: #### L 500.2500, L100.0100 ####[facility] [address] [place], [address] MCH Normal 27.0-32.0 [facility] Comment on above: Result Comment: Canc elled via OM: Order cancelled - Patient discharged Performed By: #### L 500.2500, L100.0100 ####[facility] [address] [place], [address] MCHC Normal 32-36 [facility] Comment on above: Result Comment: Canc elled via OM: Order cancelled - Patient discharged Performed By: #### L 500.2500, L100.0100 ####[facility] [address] [place], [address] MCV Normal 81-99 [facility] Comment on above: Result Comment: Canc elled via OM: Order cancelled - Patient discharged Performed By: #### L 500.2500, L100.0100 ####[facility] [address] [place], [address] NEUT% Normal 47-70 [facility] Comment on above: Result Comment: Canc elled via OM: Order cancelled - Patient discharged Performed By: #### L 500.2500, L100.0100 ####[facility] [address] [place], [address] PLT Normal 150-450 [facility] Comment on above: Result Comment: Canc elled via OM: Order cancelled - Patient discharged Performed By: #### L 500.2500, L100.0100 ####[facility] [address] [place], [address] RBC Normal 4.2-5.4 [facility] Comment on above: Result Comment: Canc elled via OM: Order cancelled - Patient discharged Performed By: #### L 500.2500, L100.0100 ####[facility] [address] [place], [address] RDW CV Normal 11.6-14.6 [facility] Comment on above: Result Comment: Canc elled via OM: Order cancelled - Patient discharged Performed By: #### L 500.2500, L100.0100 ####[facility] [address] [place], [address] RDW SD Normal 35.1-43.9 [facility] Comment on above: Result Comment: Canc elled via OM: Order cancelled - Patient discharged Performed By: #### L 500.2500, L100.0100 ####[facility] [address] [place], [address] WBC Normal 4.4-11.0 [facility] Comment on above: Result Comment: Canc elled via OM: Order cancelled - Patient discharged Performed By: #### L 500.2500, L100.0100 ####[facility] [address] [place], [address] Basic Metabolic Profile (BMP )on 06-01-2025 BUN Normal 4-19 [facility] Comment on above: Result Comment: Canc elled via OM: Order cancelled - Patient discharged Performed By: #### L 100.0100, L500.2500 ####[facility] [address] [place], [address] BUN/CRE Normal 10-20 [facility] Comment on above: Result Comment: Canc elled via OM: Order cancelled - Patient discharged Performed By: #### L 100.0100, L500.2500 ####[facility] [address] [place], [address] Calcium Normal 7.6-11.0 [facility] Comment on above: Result Comment: Canc elled via OM: Order cancelled - Patient discharged Performed By: #### L 100.0100, L500.2500 ####[facility] [address] [place], [address] CL Normal 98-108 [facility] Comment on above: Result Comment: Canc elled via OM: Order cancelled - Patient discharged Performed By: #### L 100.0100, L500.2500 ####[facility] [address] [place], [address] CO2 Normal 21.0-32.0 [facility] Comment on above: Result Comment: Canc elled via OM: Order cancelled - Patient discharged Performed By: #### L 100.0100, L500.2500 ####[facility] [address] [place], [address] CREAT,SERUM Normal 0.70-1.20 [facility] Comment on above: Result Comment: Canc elled via OM: Order cancelled - Patient discharged Performed By: #### L 100.0100, L500.2500 ####[facility] [address] [place], [address] eGFR Normal >60 [facility] Comment on above: Result Comment: Canc elled via OM: Order cancelled - Patient discharged Performed By: #### L 100.0100, L500.2500 ####[facility] [address] [place], [address] GAP Normal 5-15 [facility] Comment on above: Result Comment: Canc elled via OM: Order cancelled - Patient discharged Performed By: #### L 100.0100, L500.2500 ####[facility] [address] [place], [address] GLU Normal 70-99 [facility] Comment on above: Result Comment: Canc elled via OM: Order cancelled - Patient discharged Performed By: #### L 100.0100, L500.2500 ####[facility] [address] [place], [address] Potassium Normal 3.3-5.1 [facility] Comment on above: Result Comment: Canc elled via OM: Order cancelled - Patient discharged Performed By: #### L 100.0100, L500.2500 ####[facility] [address] [place], [address] Basic Metabolic Profile (BMP) Normal 133-145 [facility] Comment on above: Result Comment: Canc elled via OM: Order cancelled - Patient discharged Performed By: #### L 100.0100, L500.2500 ####[facility] [address] [place], [address] CBC W/Diff, Automatedon 11-1 Absolute Neut Normal 2.0-7.7 [facility] Comment on above: Result Comment: Canc elled via OM: Order cancelled - Patient discharged Performed By: #### L 100.0100, L500.2500 ####[facility] [address] [place], [address] HCT Normal 37-47 [facility] Comment on above: Result Comment: Canc elled via OM: Order cancelled - Patient discharged Performed By: #### L 100.0100, L500.2500 ####[facility] [address] [place], [address] HGB Normal 12.0-15.0 [facility] Comment on above: Result Comment: Canc elled via OM: Order cancelled - Patient discharged Performed By: #### L 100.0100, L500.2500 ####[facility] [address] [place], [address] MCH Normal 27.0-32.0 [facility] Comment on above: Result Comment: Canc elled via OM: Order cancelled - Patient discharged Performed By: #### L 100.0100, L500.2500 ####[facility] [address] [place], [address] MCHC Normal 32-36 [facility] Comment on above: Result Comment: Canc elled via OM: Order cancelled - Patient discharged Performed By: #### L 100.0100, L500.2500 ####[facility] [address] [place], [address] MCV Normal 81-99 [facility] Comment on above: Result Comment: Canc elled via OM: Order cancelled - Patient discharged Performed By: #### L 100.0100, L500.2500 ####[facility] [address] [place], [address] NEUT% Normal 47-70 [facility] Comment on above: Result Comment: Canc elled via OM: Order cancelled - Patient discharged Performed By: #### L 100.0100, L500.2500 ####[facility] [address] [place], [address] PLT Normal 150-450 [facility] Comment on above: Result Comment: Canc elled via OM: Order cancelled - Patient discharged Performed By: #### L 100.0100, L500.2500 ####[facility] [address] [place], [address] RBC Normal 4.2-5.4 [facility] Comment on above: Result Comment: Canc elled via OM: Order cancelled - Patient discharged Performed By: #### L 100.0100, L500.2500 ####[facility] [address] [place], [address] RDW CV Normal 11.6-14.6 [facility] Comment on above: Result Comment: Canc elled via OM: Order cancelled - Patient discharged Performed By: #### L 100.0100, L500.2500 ####[facility] [address] [place], [address] RDW SD Normal 35.1-43.9 [facility] Comment on above: Result Comment: Canc elled via OM: Order cancelled - Patient discharged Performed By: #### L 100.0100, L500.2500 ####[facility] [address] [place], [address] WBC Normal 4.4-11.0 [facility] Comment on above: Result Comment: Canc elled via OM: Order cancelled - Patient discharged Performed By: #### L 100.0100, L500.2500 ####[facility] [address] [place], [address] Basic Metabolic Profile (BMP )on 05-31-2025 BUN Normal 4-19 [facility] Comment on above: Result Comment: Canc elled via OM: Order cancelled - Patient discharged Performed By: #### L 100.0100, L500.2500 ####[facility] [address] [place], [address] BUN/CRE Normal 10-20 [facility] Comment on above: Result Comment: Canc elled via OM: Order cancelled - Patient discharged Performed By: #### L 100.0100, L500.2500 ####[facility] [address] [place], [address] Calcium Normal 7.6-11.0 [facility] Comment on above: Result Comment: Canc elled via OM: Order cancelled - Patient discharged Performed By: #### L 100.0100, L500.2500 ####[facility] [address] [place], [address] CL Normal 98-108 [facility] Comment on above: Result Comment: Canc elled via OM: Order cancelled - Patient discharged Performed By: #### L 100.0100, L500.2500 ####[facility] [address] [place], [address] CO2 Normal 21.0-32.0 [facility] Comment on above: Result Comment: Canc elled via OM: Order cancelled - Patient discharged Performed By: #### L 100.0100, L500.2500 ####[facility] [address] [place], [address] CREAT,SERUM Normal 0.70-1.20 [facility] Comment on above: Result Comment: Canc elled via OM: Order cancelled - Patient discharged Performed By: #### L 100.0100, L500.2500 ####[facility] [address] [place], [address] eGFR Normal >60 [facility] Comment on above: Result Comment: Canc elled via OM: Order cancelled - Patient discharged Performed By: #### L 100.0100, L500.2500 ####[facility] [address] [place], [address] GAP Normal 5-15 [facility] Comment on above: Result Comment: Canc elled via OM: Order cancelled - Patient discharged Performed By: #### L 100.0100, L500.2500 ####[facility] [address] [place], [address] GLU Normal 70-99 [facility] Comment on above: Result Comment: Canc elled via OM: Order cancelled - Patient discharged Performed By: #### L 100.0100, L500.2500 ####[facility] [address] [place], [address] Potassium Normal 3.3-5.1 [facility] Comment on above: Result Comment: Canc elled via OM: Order cancelled - Patient discharged Performed By: #### L 100.0100, L500.2500 ####[facility] [address] [place], [address] Basic Metabolic Profile (BMP) Normal 133-145 [facility] Comment on above: Result Comment: Canc elled via OM: Order cancelled - Patient discharged Performed By: #### L 100.0100, L500.2500 ####[facility] [address] [place], [address] CBC W/Diff, Automatedon 11- Absolute Neut Normal 2.0-7.7 [facility] Comment on above: Result Comment: Canc elled via OM: Order cancelled - Patient discharged Performed By: #### L 100.0100, L500.2500 ####[facility] [address] [place], [address] HCT Normal 37-47 [facility] Comment on above: Result Comment: Canc elled via OM: Order cancelled - Patient discharged Performed By: #### L 100.0100, L500.2500 ####[facility] [address] [place], [address] HGB Normal 12.0-15.0 [facility] Comment on above: Result Comment: Canc elled via OM: Order cancelled - Patient discharged Performed By: #### L 100.0100, L500.2500 ####[facility] [address] [place], [address] MCH Normal 27.0-32.0 [facility] Comment on above: Result Comment: Canc elled via OM: Order cancelled - Patient discharged Performed By: #### L 100.0100, L500.2500 ####[facility] [address] [place], [address] MCHC Normal 32-36 [facility] Comment on above: Result Comment: Canc elled via OM: Order cancelled - Patient discharged Performed By: #### L 100.0100, L500.2500 ####[facility] [address] [place], [address] MCV Normal 81-99 [facility] Comment on above: Result Comment: Canc elled via OM: Order cancelled - Patient discharged Performed By: #### L 100.0100, L500.2500 ####[facility] [address] [place], [address] NEUT% Normal 47-70 [facility] Comment on above: Result Comment: Canc elled via OM: Order cancelled - Patient discharged Performed By: #### L 100.0100, L500.2500 ####[facility] [address] [place], [address] PLT Normal 150-450 [facility] Comment on above: Result Comment: Canc elled via OM: Order cancelled - Patient discharged Performed By: #### L 100.0100, L500.2500 ####[facility] [address] [place], [address] RBC Normal 4.2-5.4 [facility] Comment on above: Result Comment: Canc elled via OM: Order cancelled - Patient discharged Performed By: #### L 100.0100, L500.2500 ####[facility] [address] [place], [address] RDW CV Normal 11.6-14.6 [facility] Comment on above: Result Comment: Canc elled via OM: Order cancelled - Patient discharged Performed By: #### L 100.0100, L500.2500 ####[facility] [address] [place], [address] RDW SD Normal 35.1-43.9 [facility] Comment on above: Result Comment: Canc elled via OM: Order cancelled - Patient discharged Performed By: #### L 100.0100, L500.2500 ####[facility] [address] [place], [address] WBC Normal 4.4-11.0 [facility] Comment on above: Result Comment: Canc elled via OM: Order cancelled - Patient discharged Performed By: #### L 100.0100, L500.2500 ####[facility] [address] [place], [address] Basic Metabolic Profile (BMP )on 05-30-2025 BUN Normal 4-19 [facility] Comment on above: Result Comment: Canc elled via OM: Order cancelled - Patient discharged Performed By: #### L 500.2500, L100.0100 ####[facility] [address] [place], [address] BUN/CRE Normal 10-20 [facility] Comment on above: Result Comment: Canc elled via OM: Order cancelled - Patient discharged Performed By: #### L 500.2500, L100.0100 ####[facility] [address] [place], [address] Calcium Normal 7.6-11.0 [facility] Comment on above: Result Comment: Canc elled via OM: Order cancelled - Patient discharged Performed By: #### L 500.2500, L100.0100 ####[facility] [address] [place], [address] CL Normal 98-108 [facility] Comment on above: Result Comment: Canc elled via OM: Order cancelled - Patient discharged Performed By: #### L 500.2500, L100.0100 ####[facility] [address] [place], [address] CO2 Normal 21.0-32.0 [facility] Comment on above: Result Comment: Canc elled via OM: Order cancelled - Patient discharged Performed By: #### L 500.2500, L100.0100 ####[facility] [address] [place], [address] CREAT,SERUM Normal 0.70-1.20 [facility] Comment on above: Result Comment: Canc elled via OM: Order cancelled - Patient discharged Performed By: #### L 500.2500, L100.0100 ####[facility] [address] [place], [address] eGFR Normal >60 [facility] Comment on above: Result Comment: Canc elled via OM: Order cancelled - Patient discharged Performed By: #### L 500.2500, L100.0100 ####[facility] [address] [place], [address] GAP Normal 5-15 [facility] Comment on above: Result Comment: Canc elled via OM: Order cancelled - Patient discharged Performed By: #### L 500.2500, L100.0100 ####[facility] [address] [place], [address] GLU Normal 70-99 [facility] Comment on above: Result Comment: Canc elled via OM: Order cancelled - Patient discharged Performed By: #### L 500.2500, L100.0100 ####[facility] [address] [place], [address] Potassium Normal 3.3-5.1 [facility] Comment on above: Result Comment: Canc elled via OM: Order cancelled - Patient discharged Performed By: #### L 500.2500, L100.0100 ####[facility] [address] [place], [address] Basic Metabolic Profile (BMP) Normal 133-145 [facility] Comment on above: Result Comment: Canc elled via OM: Order cancelled - Patient discharged Performed By: #### L 500.2500, L100.0100 ####[facility] [address] [place], [address] CBC W/Diff, Automatedon 11-1 Absolute Neut Normal 2.0-7.7 [facility] Comment on above: Result Comment: Canc elled via OM: Order cancelled - Patient discharged Performed By: #### L 500.2500, L100.0100 ####[facility] [address] [place], [address] HCT Normal 37-47 [facility] Comment on above: Result Comment: Canc elled via OM: Order cancelled - Patient discharged Performed By: #### L 500.2500, L100.0100 ####[facility] [address] [place], [address] HGB Normal 12.0-15.0 [facility] Comment on above: Result Comment: Canc elled via OM: Order cancelled - Patient discharged Performed By: #### L 500.2500, L100.0100 ####[facility] [address] [place], [address] MCH Normal 27.0-32.0 [facility] Comment on above: Result Comment: Canc elled via OM: Order cancelled - Patient discharged Performed By: #### L 500.2500, L100.0100 ####[facility] [address] [place], [address] MCHC Normal 32-36 [facility] Comment on above: Result Comment: Canc elled via OM: Order cancelled - Patient discharged Performed By: #### L 500.2500, L100.0100 ####[facility] [address] [place], [address] MCV Normal 81-99 [facility] Comment on above: Result Comment: Canc elled via OM: Order cancelled - Patient discharged Performed By: #### L 500.2500, L100.0100 ####[facility] [address] [place], [address] NEUT% Normal 47-70 [facility] Comment on above: Result Comment: Canc elled via OM: Order cancelled - Patient discharged Performed By: #### L 500.2500, L100.0100 ####[facility] [address] [place], [address] PLT Normal 150-450 [facility] Comment on above: Result Comment: Canc elled via OM: Order cancelled - Patient discharged Performed By: #### L 500.2500, L100.0100 ####[facility] [address] [place], [address] RBC Normal 4.2-5.4 [facility] Comment on above: Result Comment: Canc elled via OM: Order cancelled - Patient discharged Performed By: #### L 500.2500, L100.0100 ####[facility] [address] [place], [address] RDW CV Normal 11.6-14.6 [facility] Comment on above: Result Comment: Canc elled via OM: Order cancelled - Patient discharged Performed By: #### L 500.2500, L100.0100 ####[facility] [address] [place], [address] RDW SD Normal 35.1-43.9 [facility] Comment on above: Result Comment: Canc elled via OM: Order cancelled - Patient discharged Performed By: #### L 500.2500, L100.0100 ####[facility] [address] [place], [address] WBC Normal 4.4-11.0 [facility] Comment on above: Result Comment: Canc elled via OM: Order cancelled - Patient discharged Performed By: #### L 500.2500, L100.0100 ####[facility] [address] [place], [address] Basic Metabolic Profile (BMP )on 05-29-2025 BUN Normal 4-19 [facility] Comment on above: Result Comment: Canc elled via OM: Order cancelled - Patient discharged Performed By: #### L 100.0100, L500.2500 ####[facility] [address] [place], [address] BUN/CRE Normal 10-20 [facility] Comment on above: Result Comment: Canc elled via OM: Order cancelled - Patient discharged Performed By: #### L 100.0100, L500.2500 ####[facility] [address] [place], [address] Calcium Normal 7.6-11.0 [facility] Comment on above: Result Comment: Canc elled via OM: Order cancelled - Patient discharged Performed By: #### L 100.0100, L500.2500 ####[facility] [address] [place], [address] CL Normal 98-108 [facility] Comment on above: Result Comment: Canc elled via OM: Order cancelled - Patient discharged Performed By: #### L 100.0100, L500.2500 ####[facility] [address] [place], [address] CO2 Normal 21.0-32.0 [facility] Comment on above: Result Comment: Canc elled via OM: Order cancelled - Patient discharged Performed By: #### L 100.0100, L500.2500 ####[facility] [address] [place], [address] CREAT,SERUM Normal 0.70-1.20 [facility] Comment on above: Result Comment: Canc elled via OM: Order cancelled - Patient discharged Performed By: #### L 100.0100, L500.2500 ####[facility] [address] [place], [address] eGFR Normal >60 [facility] Comment on above: Result Comment: Canc elled via OM: Order cancelled - Patient discharged Performed By: #### L 100.0100, L500.2500 ####[facility] [address] [place], [address] GAP Normal 5-15 [facility] Comment on above: Result Comment: Canc elled via OM: Order cancelled - Patient discharged Performed By: #### L 100.0100, L500.2500 ####[facility] [address] [place], [address] GLU Normal 70-99 [facility] Comment on above: Result Comment: Canc elled via OM: Order cancelled - Patient discharged Performed By: #### L 100.0100, L500.2500 ####[facility] [address] [place], [address] Potassium Normal 3.3-5.1 [facility] Comment on above: Result Comment: Canc elled via OM: Order cancelled - Patient discharged Performed By: #### L 100.0100, L500.2500 ####[facility] [address] [place], [address] Basic Metabolic Profile (BMP) Normal 133-145 [facility] Comment on above: Result Comment: Canc elled via OM: Order cancelled - Patient discharged Performed By: #### L 100.0100, L500.2500 ####[facility] [address] [place], [address] CBC W/Diff, Automatedon 11-1 Absolute Neut Normal 2.0-7.7 [facility] Comment on above: Result Comment: Canc elled via OM: Order cancelled - Patient discharged Performed By: #### L 100.0100, L500.2500 ####[facility] [address] [place], [address] HCT Normal 37-47 [facility] Comment on above: Result Comment: Canc elled via OM: Order cancelled - Patient discharged Performed By: #### L 100.0100, L500.2500 ####[facility] [address] [place], [address] HGB Normal 12.0-15.0 [facility] Comment on above: Result Comment: Canc elled via OM: Order cancelled - Patient discharged Performed By: #### L 100.0100, L500.2500 ####[facility] [address] [place], [address] MCH Normal 27.0-32.0 [facility] Comment on above: Result Comment: Canc elled via OM: Order cancelled - Patient discharged Performed By: #### L 100.0100, L500.2500 ####[facility] [address] [place], [address] MCHC Normal 32-36 [facility] Comment on above: Result Comment: Canc elled via OM: Order cancelled - Patient discharged Performed By: #### L 100.0100, L500.2500 ####[facility] [address] [place], [address] MCV Normal 81-99 [facility] Comment on above: Result Comment: Canc elled via OM: Order cancelled - Patient discharged Performed By: #### L 100.0100, L500.2500 ####[facility] [address] [place], [address] NEUT% Normal 47-70 [facility] Comment on above: Result Comment: Canc elled via OM: Order cancelled - Patient discharged Performed By: #### L 100.0100, L500.2500 ####[facility] [address] [place], [address] PLT Normal 150-450 [facility] Comment on above: Result Comment: Canc elled via OM: Order cancelled - Patient discharged Performed By: #### L 100.0100, L500.2500 ####[facility] [address] [place], [address] RBC Normal 4.2-5.4 [facility] Comment on above: Result Comment: Canc elled via OM: Order cancelled - Patient discharged Performed By: #### L 100.0100, L500.2500 ####[facility] [address] [place], [address] RDW CV Normal 11.6-14.6 [facility] Comment on above: Result Comment: Canc elled via OM: Order cancelled - Patient discharged Performed By: #### L 100.0100, L500.2500 ####[facility] [address] [place], [address] RDW SD Normal 35.1-43.9 [facility] Comment on above: Result Comment: Canc elled via OM: Order cancelled - Patient discharged Performed By: #### L 100.0100, L500.2500 ####[facility] [address] [place], [address] WBC Normal 4.4-11.0 [facility] Comment on above: Result Comment: Canc elled via OM: Order cancelled - Patient discharged Performed By: #### L 100.0100, L500.2500 ####[facility] [address] [place], [address] Culture, Anaerobic Any Sourc mik 05-29-2025 CUAN No growth in 48 hours. Normal [facility] Comment on above: Performed By: #### M 100.4001, M100.2900, M100.2000 ####[facility] [address] [place], [address] Basic Metabolic Profile (BMP )on 05-28-2025 BUN/CRE 24.1 RATIO High 10-20 [facility] Comment on above: Performed By: #### L 100.0100, L500.2500 ####[facility] [address] [place], [address] Calcium [Mass/Vol] 9.4 mg/dL Normal 7.6-11.0 [facility] Comment on above: Performed By: #### L 100.0100, L500.2500 ####[facility] [address] [place], [address] Chloride [Moles/Vol] 105 mmol/L Normal 98-108 [facility] Comment on above: Performed By: #### L 100.0100, L500.2500 ####[facility] [address] [place], [address] CO2 [Moles/Vol] 26.0 mmol/L Normal 21.0-32.0 [facility] Comment on above: Performed By: #### L 100.0100, L500.2500 ####[facility] [address] [place], [address] Creatinine [Mass/Vol] 1.55 mg/dL High 0.70-1.20 [facility] Comment on above: Performed By: #### L 100.0100, L500.2500 ####[facility] [address] [place], [address] ECRCL 42.50 ml/min Low 50-250 [facility] Comment on above: Performed By: #### L 100.0100, L500.2500 ####[facility] [address] [place], [address] GAP 9 Normal 5-15 [facility] Comment on above: Performed By: #### L 100.0100, L500.2500 ####[facility] [address] [place], [address] GFR/1.73 sq M.predicted among non-blacks MDRD (S/P/Bld) [Vol rate/Area] 37 mL/min/{1.73_m2} Low >60 [facility] Comment on above: Result Comment: mL/m in/1.73m2 CKD-EPI Creatinine Equation (2020) Performed By: #### L 100.0100, L500.2500 ####[facility] [address] [place], [address] Glucose [Mass/Vol] 168 mg/dL High 70-99 [facility] Comment on above: Performed By: #### L 100.0100, L500.2500 ####[facility] [address] [place], [address] Potassium [Moles/Vol] 4.1 mmol/L Normal 3.3-5.1 [facility] Comment on above: Performed By: #### L 100.0100, L500.2500 ####[facility] [address] [place], [address] Sodium [Moles/Vol] 140 mmol/L Normal 133-145 [facility] Comment on above: Performed By: #### L 100.0100, L500.2500 ####[facility] [address] [place], [address] Urea nitrogen [Mass/Vol] 37 mg/dL High 4-19 [facility] Comment on above: Performed By: #### L 100.0100, L500.2500 ####[facility] [address] [place], [address] Body Fluid Culton 05-28-2025 BFC UNK UNK No growth-Final to follow Normal [facility] Comment on above: Performed By: #### M 100.4001, M100.2900, M100.2000 ####[facility] [address] [place], [address] CBC W/Diff, Automatedon 05-18 Absolute Lymph 0.72 X10 3/uL Low 0.83-4.51 [facility] Comment on above: Performed By: #### L 100.0100, L500.2500 ####[facility] [address] [place], [address] Absolute Neut 15.8 X10 3/uL High 2.0-7.7 [facility] Comment on above: Performed By: #### L 100.0100, L500.2500 ####[facility] [address] [place], [address] Basophils/100 WBC (Bld) 0.1 % Normal 0-[address] [facility] Comment on above: Performed By: #### L 100.0100, L500.2500 ####[facility] [address] [place], [address] Eosinophils/100 WBC (Bld) 0.0 % Normal 0-5 [facility] Comment on above: Performed By: #### L 100.0100, L500.2500 ####[facility] [address] [place], [address] Erythrocyte distribution width (RBC) [Ratio] 14.5 % Normal 11.6-14.6 [facility] Comment on above: Performed By: #### L 100.0100, L500.2500 ####[facility] [address] [place], [address] Hematocrit (Bld) [Volume fraction] 44.1 % Normal 37-47 [facility] Comment on above: Performed By: #### L 100.0100, L500.2500 ####[facility] [address] [place], [address] Hemoglobin (Bld) [Mass/Vol] 14.2 g/dL Normal 12.0-15.0 [facility] Comment on above: Performed By: #### L 100.0100, L500.2500 ####[facility] [address] [place], [address] IG% 0.600 Normal 0.0-0.9 [facility] Comment on above: Result Comment: IG% - Immature Granulocytes (promyelocytes, myelocytes andmetamyelocytes) > 1% indicates that a LEFT SHIFT is Present. Performed By: #### L 100.0100, L500.2500 ####[facility] [address] [place], [address] Lymphocytes/100 WBC (Bld) 4.2 % Low 19-41 [facility] Comment on above: Performed By: #### L 100.0100, L500.2500 ####[facility] [address] [place], [address] MCH (RBC) [Entitic mass] 30.6 pg Normal 27.0-32.0 [facility] Comment on above: Performed By: #### L 100.0100, L500.2500 ####[facility] [address] [place], [address] MCHC (RBC) [Mass/Vol] 32.2 g/dL Normal 32-36 [facility] Comment on above: Performed By: #### L 100.0100, L500.2500 ####[facility] [address] [place], [address] MCV (RBC) [Entitic vol] 95.0 fL Normal 81-99 [facility] Comment on above: Performed By: #### L 100.0100, L500.2500 ####[facility] [address] [place], [address] Monocytes/100 WBC (Bld) 3.3 % Normal 0-[address] [facility] Comment on above: Performed By: #### L 100.0100, L500.2500 ####[facility] [address] [place], [address] Neutrophils/100 WBC (Bld) 91.8 % High 47-70 [facility] Comment on above: Performed By: #### L 100.0100, L500.2500 ####[facility] [address] [place], [address] Nucleated RBC (Bld) [#/Vol] 0 10*3/uL Normal 0-5 [facility] Comment on above: Performed By: #### L 100.0100, L500.2500 ####[facility] [address] [place], [address] Platelet mean volume (Bld) [Entitic vol] 10.7 fL Normal 6.2-12.0 [facility] Comment on above: Performed By: #### L 100.0100, L500.2500 ####[facility] [address] [place], [address] Platelets (Bld) [#/Vol] 254 10*3/uL Normal 150-450 [facility] Comment on above: Performed By: #### L 100.0100, L500.2500 ####[facility] [address] [place], [address] RBC (Bld) [#/Vol] 4.64 10*6/uL Normal 4.2-5.4 [facility] Comment on above: Performed By: #### L 100.0100, L500.2500 ####[facility] [address] [place], [address] RDW SD 50.2 fl High 35.1-43.9 [facility] Comment on above: Performed By: #### L 100.0100, L500.2500 ####[facility] [address] [place], [address] WBC (Bld) [#/Vol] 17.2 10*3/uL High 4.4-11.0 [facility] Comment on above: Performed By: #### L 100.0100, L500.2500 ####[facility] [address] [place], [address] Discharge Instructionon 05-18 Discharge Instruction Normal [facility] Basic Metabolic Profile (BMP )on 05-27-2025 BUN/CRE 20.8 RATIO High 10-20 [facility] Comment on above: Performed By: #### L 504.2610, L500.2500 ####[facility] [address] [place], [address] Calcium [Mass/Vol] 10.2 mg/dL Normal 7.6-11.0 [facility] Comment on above: Performed By: #### L 504.2610, L500.2500 ####[facility] [address] [place], [address] Chloride [Moles/Vol] 103 mmol/L Normal 98-108 [facility] Comment on above: Performed By: #### L 504.2610, L500.2500 ####[facility] [address] [place], [address] CO2 [Moles/Vol] 22.8 mmol/L Normal 21.0-32.0 [facility] Comment on above: Performed By: #### L 504.2610, L500.2500 ####[facility] [address] [place], [address] Creatinine [Mass/Vol] 1.47 mg/dL High 0.70-1.20 [facility] Comment on above: Performed By: #### L 504.2610, L500.2500 ####[facility] [address] [place], [address] ECRCL 44.83 ml/min Low 50-250 [facility] Comment on above: Performed By: #### L 504.2610, L500.2500 ####[facility] [address] [place], [address] GAP 13 Normal 5-15 [facility] Comment on above: Performed By: #### L 504.2610, L500.2500 ####[facility] [address] [place], [address] GFR/1.73 sq M.predicted among non-blacks MDRD (S/P/Bld) [Vol rate/Area] 40 mL/min/{1.73_m2} Low >60 [facility] Comment on above: Result Comment: mL/m in/1.73m2 CKD-EPI Creatinine Equation (2020) Performed By: #### L 504.2610, L500.2500 ####[facility] [address] [place], [address] Glucose [Mass/Vol] 140 mg/dL High 70-99 [facility] Comment on above: Performed By: #### L 504.2610, L500.2500 ####[facility] [address] [place], [address] Potassium [Moles/Vol] 4.2 mmol/L Normal 3.3-5.1 [facility] Comment on above: Performed By: #### L 504.2610, L500.2500 ####[facility] [address] [place], [address] Sodium [Moles/Vol] 139 mmol/L Normal 133-145 [facility] Comment on above: Performed By: #### L 504.2610, L500.2500 ####[facility] [address] [place], [address] Urea nitrogen [Mass/Vol] 31 mg/dL High 4-19 [facility] Comment on above: Performed By: #### L 504.2610, L500.2500 ####[facility] [address] [place], [address] CBC W/Diff, Automatedon 11-1 PLT EST ADEQUATE Normal ADEQ [facility] Comment on above: Performed By: #### L 100.0100 ####[facility] [address] [place], [address] RED CELL MORPH NORM C+C Normal NORM C C [facility] Comment on above: Performed By: #### L 100.0100 ####[facility] [address] [place], [address] SMEAR COMMENT SCANNED Normal [facility] Comment on above: Performed By: #### L 100.0100 ####[facility] [address] [place], [address] VACUOLATE CELLS 1+ Normal [facility] Comment on above: Performed By: #### L 100.0100 ####[facility] [address] 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 Culture performed on centrifuged specimen Gram Stain No organisms seen 4+ Red Blood Cells 1+ White Blood Cells Normal [facility] Comment on above: Performed By: #### M 100.4001, M100.2900, M100.2000 ####[facility] [address] [place], [address] LDHon 05-27-2025 LDH 206 U/L Normal 84-246 [facility] Comment on above: Performed By: #### L 504.2610, L500.2500 ####[facility] [address] [place], [address] Pro- Brain NATRIURETIC PEPTI Radha 05-27-2025 Natriuretic peptide B (Bld) [Mass/Vol] 396 pg/mL Normal <=900 [facility] Comment on above: Result Comment: Hear t Failure Unlikely: < 300 pg/mLHeart Failure Likely< 50 Years: > 450 pg/mL50-75 Years: > 900 pg/mL>75 Years: > 1800 pg/mL Performed By: #### L 503.7505 ####[facility] [address] [place], [address] Protein, Totalon 05-27-2025 T PROT 6.7 g/dL Normal 5.9-8.4 [facility] Comment on above: Order Comment: OK TO ADD TO MORNING LABS PER IRIS SALCIDO Performed By: #### L 001.0705 ####[facility] [address] [place], [address] Thoracentesis W USon 025 Thoracentesis W US Normal [facility] Basic Metabolic Profile (BMP )on 05-26-2025 BUN/CRE 15.8 RATIO Normal 10-20 [facility] Comment on above: Performed By: #### L 500.2500, L100.0100 ####[facility] [address] [place], [address] Calcium [Mass/Vol] 9.9 mg/dL Normal 7.6-11.0 [facility] Comment on above: Performed By: #### L 500.2500, L100.0100 ####[facility] [address] [place], [address] Chloride [Moles/Vol] 103 mmol/L Normal 98-108 [facility] Comment on above: Performed By: #### L 500.2500, L100.0100 ####[facility] [address] [place], [address] CO2 [Moles/Vol] 23.4 mmol/L Normal 21.0-32.0 [facility] Comment on above: Performed By: #### L 500.2500, L100.0100 ####[facility] [address] [place], [address] Creatinine [Mass/Vol] 1.53 mg/dL High 0.70-1.20 [facility] [facility] Comment on above: Performed By: #### L 500.2500, L100.0100 ####[facility] [address] [place], [address] ECRCL 42.98 ml/min Low 50-250 [facility] Comment on above: Performed By: #### L 500.2500, L100.0100 ####[facility] [address] [place], [address] GAP 11 Normal 5-15 [facility] Comment on above: Performed By: #### L 500.2500, L100.0100 ####[facility] [address] [place], [address] GFR/1.73 sq M.predicted among non-blacks MDRD (S/P/Bld) [Vol rate/Area] 38 mL/min/{1.73_m2} Low >60 [facility] Comment on above: Result Comment: mL/m in/1.73m2 CKD-EPI Creatinine Equation (2020) Performed By: #### L 500.2500, L100.0100 ####[facility] [address] [place], [address] Glucose [Mass/Vol] 209 mg/dL High 70-99 [facility] Comment on above: Performed By: #### L 500.2500, L100.0100 ####[facility] [address] [place], [address] Potassium [Moles/Vol] 3.8 mmol/L Normal 3.3-5.1 [facility] Comment on above: Performed By: #### L 500.2500, L100.0100 ####[facility] [address] [place], [address] Sodium [Moles/Vol] 137 mmol/L Normal 133-145 [facility] Comment on above: Performed By: #### L 500.2500, L100.0100 ####[facility] [address] [place], [address] Urea nitrogen [Mass/Vol] 24 mg/dL High 4-19 [facility] Comment on above: Performed By: #### L 500.2500, L100.0100 ####[facility] [address] [place], [address] CBC W/Diff, Automatedon 11-0 Absolute Neut Normal 2.0-7.7 [facility] Comment on above: Result Comment: DUPL ICATE ORDER, ANOTHER ONE ORDERED FOR 0555. Performed By: #### L 100.0100 ####[facility] [address] [place], [address] HCT Normal 37-47 [facility] Comment on above: Result Comment: DUPL ICATE ORDER, ANOTHER ONE ORDERED FOR 0555. Performed By: #### L 100.0100 ####[facility] [address] [place], [address] HGB Normal 12.0-15.0 [facility] Comment on above: Result Comment: DUPL ICATE ORDER, ANOTHER ONE ORDERED FOR 0555. Performed By: #### L 100.0100 ####[facility] [address] [place], [address] MCH Normal 27.0-32.0 [facility] Comment on above: Result Comment: DUPL ICATE ORDER, ANOTHER ONE ORDERED FOR 0555. Performed By: #### L 100.0100 ####[facility] [address] [place], [address] MCHC Normal 32-36 [facility] Comment on above: Result Comment: DUPL ICATE ORDER, ANOTHER ONE ORDERED FOR 0555. Performed By: #### L 100.0100 ####[facility] [address] [place], [address] MCV Normal 81-99 [facility] Comment on above: Result Comment: DUPL ICATE ORDER, ANOTHER ONE ORDERED FOR 0555. Performed By: #### L 100.0100 ####[facility] [address] [place], [address] NEUT% Normal 47-70 [facility] Comment on above: Result Comment: DUPL ICATE ORDER, ANOTHER ONE ORDERED FOR 0555. Performed By: #### L 100.0100 ####[facility] [address] [place], [address] PLT Normal 150-450 [facility] Comment on above: Result Comment: DUPL ICATE ORDER, ANOTHER ONE ORDERED FOR 0555. Performed By: #### L 100.0100 ####[facility] [address] [place], [address] RBC Normal 4.2-5.4 [facility] Comment on above: Result Comment: DUPL ICATE ORDER, ANOTHER ONE ORDERED FOR 0555. Performed By: #### L 100.0100 ####[facility] [address] [place], [address] RDW CV Normal 11.6-14.6 [facility] Comment on above: Result Comment: DUPL ICATE ORDER, ANOTHER ONE ORDERED FOR 0555. Performed By: #### L 100.0100 ####[facility] [address] [place], [address] RDW SD Normal 35.1-43.9 [facility] Comment on above: Result Comment: DUPL ICATE ORDER, ANOTHER ONE ORDERED FOR 0555. Performed By: #### L 100.0100 ####[facility] [address] [place], [address] WBC Normal 4.4-11.0 [facility] Comment on above: Result Comment: DUPL ICATE ORDER, ANOTHER ONE ORDERED FOR 0555. Performed By: #### L 100.0100 ####[facility] [address] [place], [address] Absolute Lymph 0.56 X10 3/uL Low 0.83-4.51 [facility] Comment on above: Performed By: #### L 500.2500, L100.0100 ####[facility] [address] [place], [address] Absolute Neut 12.4 X10 3/uL High 2.0-7.7 [facility] Comment on above: Performed By: #### L 500.2500, L100.0100 ####[facility] [address] [place], [address] Basophils/100 WBC (Bld) 0.1 % Normal 0-[address] [facility] Comment on above: Performed By: #### L 500.2500, L100.0100 ####[facility] [address] [place], [address] Eosinophils/100 WBC (Bld) 0.0 % Normal 0-5 [facility] Comment on above: Performed By: #### L 500.2500, L100.0100 ####[facility] [address] [place], [address] Erythrocyte distribution width (RBC) [Ratio] 14.0 % Normal 11.6-14.6 [facility] Comment on above: Performed By: #### L 500.2500, L100.0100 ####[facility] [address] [place], [address] Hematocrit (Bld) [Volume fraction] 44.0 % Normal 37-47 [facility] Comment on above: Performed By: #### L 500.2500, L100.0100 ####[facility] [address] [place], [address] Hemoglobin (Bld) [Mass/Vol] 14.6 g/dL Normal 12.0-15.0 [facility] Comment on above: Performed By: #### L 500.2500, L100.0100 ####[facility] [address] [place], [address] IG% 0.500 Normal 0.0-0.9 [facility] Comment on above: Result Comment: IG% - Immature Granulocytes (promyelocytes, myelocytes andmetamyelocytes) > 1% indicates that a LEFT SHIFT is Present. Performed By: #### L 500.2500, L100.0100 ####[facility] [address] [place], [address] Lymphocytes/100 WBC (Bld) 4.2 % Low 19-41 [facility] Comment on above: Performed By: #### L 500.2500, L100.0100 ####[facility] [address] [place], [address] MCH (RBC) [Entitic mass] 31.3 pg Normal 27.0-32.0 [facility] Comment on above: Performed By: #### L 500.2500, L100.0100 ####[facility] [address] [place], [address] MCHC (RBC) [Mass/Vol] 33.2 g/dL Normal 32-36 [facility] Comment on above: Performed By: #### L 500.2500, L100.0100 ####[facility] [address] [place], [address] MCV (RBC) [Entitic vol] 94.2 fL Normal 81-[address] [facility] Comment on above: Performed By: #### L 500.2500, L100.0100 ####[facility] [address] [place], [address] Monocytes/100 WBC (Bld) 2.1 % Normal 0-[address] [facility] Comment on above: Performed By: #### L 500.2500, L100.0100 ####[facility] [address] [place], [address] Neutrophils/100 WBC (Bld) 93.1 % High 47-70 [facility] Comment on above: Performed By: #### L 500.2500, L100.0100 ####[facility] [address] [place], [address] Nucleated RBC (Bld) [#/Vol] 0 10*3/uL Normal 0-5 [facility] Comment on above: Performed By: #### L 500.2500, L100.0100 ####[facility] [address] [place], [address] Platelet mean volume (Bld) [Entitic vol] 10.9 fL Normal 6.2-12.0 [facility] Comment on above: Performed By: #### L 500.2500, L100.0100 ####[facility] [address] [place], [address] Platelets (Bld) [#/Vol] 230 10*3/uL Normal 150-450 [facility] Comment on above: Performed By: #### L 500.2500, L100.0100 ####[facility] [address] [place], [address] RBC (Bld) [#/Vol] 4.67 10*6/uL Normal 4.2-5.4 [facility] Comment on above: Performed By: #### L 500.2500, L100.0100 ####[facility] [address] [place], [address] RDW SD 48.8 fl High 35.1-43.9 [facility] Comment on above: Performed By: #### L 500.2500, L100.0100 ####[facility] [address] [place], [address] WBC (Bld) [#/Vol] 13.4 10*3/uL High 4.4-11.0 [facility] Comment on above: Performed By: #### L 500.2500, L100.0100 ####[facility] [address] [place], [address] Partial Thromboplast Timeon 05-26-2025 aPTT Coag (Bld) [Time] 76.4 s High 24.1-36.2 [facility] Comment on above: Performed By: #### L 300.4310 ####[facility] [address] [place], [address] aPTT Coag (Bld) [Time] 177.5 s Invalid Interpretation Code 24.1-36.2 [facility] Comment on above: Result Comment: CRIT ICAL VALUE CALLED TO ROSA MARIA SIMPSON05/26/25 1408 Stuart Vela.RESULTS READ BACK BY SAME. Performed By: #### L 300.4310 ####[facility] [address] [place], [address] aPTT Coag (Bld) [Time] 219.1 s Invalid Interpretation Code 24.1-36.2 [facility] Comment on above: Result Comment: CRIT ICAL VALUE CALLED TO UVNWYYKH79/09/25 0501 Herbie Haywood.RESULTS READ BACK BY SAME. Performed By: #### L 300.4310 ####[facility] [address] [place], [address] CBC W/Diff, Automatedon 11 Absolute Lymph 0.38 X10 3/uL Low 0.83-4.51 [facility] Comment on above: Order Comment: Comme nts: If not done in prior 24 hours Performed By: #### L 300.4310, L300.3900, L100.0100 ####[facility] [address] [place], [address] Absolute Neut 6.4 X10 3/uL Normal 2.0-7.7 [facility] Comment on above: Order Comment: Comme nts: If not done in prior 24 hours Performed By: #### L 300.4310, L300.3900, L100.0100 ####[facility] [address] [place], [address] Basophils/100 WBC (Bld) 0.1 % Normal 0-[address] [facility] Comment on above: Order Comment: Comme nts: If not done in prior 24 hours Performed By: #### L 300.4310, L300.3900, L100.0100 ####[facility] [address] [place], [address] Eosinophils/100 WBC (Bld) 0.0 % Normal 0-5 [facility] Comment on above: Order Comment: Comme nts: If not done in prior 24 hours Performed By: #### L 300.4310, L300.3900, L100.0100 ####[facility] [address] [place], [address] Erythrocyte distribution width (RBC) [Ratio] 14.1 % Normal 11.6-14.6 [facility] Comment on above: Order Comment: Comme nts: If not done in prior 24 hours Performed By: #### L 300.4310, L300.3900, L100.0100 ####[facility] [address] [place], [address] Hematocrit (Bld) [Volume fraction] 46.1 % Normal 37-47 [facility] Comment on above: Order Comment: Comme nts: If not done in prior 24 hours Performed By: #### L 300.4310, L300.3900, L100.0100 ####[facility] [address] [place], [address] Hemoglobin (Bld) [Mass/Vol] 15.0 g/dL Normal 12.0-15.0 [facility] Comment on above: Order Comment: Comme nts: If not done in prior 24 hours Performed By: #### L 300.4310, L300.3900, L100.0100 ####[facility] [address] [place], [address] IG% 0.100 Normal 0.0-0.9 [facility] Comment on above: Order Comment: Comme nts: If not done in prior 24 hours Result Comment: IG% - Immature Granulocytes (promyelocytes, myelocytes andmetamyelocytes) > 1% indicates that a LEFT SHIFT is Present. Performed By: #### L 300.4310, L300.3900, L100.0100 ####[facility] [address] [place], [address] Lymphocytes/100 WBC (Bld) 5.5 % Low 19-41 [facility] Comment on above: Order Comment: Comme nts: If not done in prior 24 hours Performed By: #### L 300.4310, L300.3900, L100.0100 ####[facility] [address] [place], [address] MCH (RBC) [Entitic mass] 30.8 pg Normal 27.0-32.0 [facility] Comment on above: Order Comment: Comme nts: If not done in prior 24 hours Performed By: #### L 300.4310, L300.3900, L100.0100 ####[facility] [address] [place], [address] MCHC (RBC) [Mass/Vol] 32.5 g/dL Normal 32-36 [facility] Comment on above: Order Comment: Comme nts: If not done in prior 24 hours Performed By: #### L 300.4310, L300.3900, L100.0100 ####[facility] [address] [place], [address] MCV (RBC) [Entitic vol] 94.7 fL Normal 81-[address] [facility] Comment on above: Order Comment: Comme nts: If not done in prior 24 hours Performed By: #### L 300.4310, L300.3900, L100.0100 ####[facility] [address] [place], [address] Monocytes/100 WBC (Bld) 1.7 % Normal 0-[address] [facility] Comment on above: Order Comment: Comme nts: If not done in prior 24 hours Performed By: #### L 300.4310, L300.3900, L100.0100 ####[facility] [address] [place], [address] Neutrophils/100 WBC (Bld) 92.6 % High 47-70 [facility] Comment on above: Order Comment: Comme nts: If not done in prior 24 hours Performed By: #### L 300.4310, L300.3900, L100.0100 ####[facility] [address] [place], [address] Nucleated RBC (Bld) [#/Vol] 0 10*3/uL Normal 0-5 [facility] Comment on above: Order Comment: Comme nts: If not done in prior 24 hours Performed By: #### L 300.4310, L300.3900, L100.0100 ####[facility] [address] [place], [address] Platelet mean volume (Bld) [Entitic vol] 10.9 fL Normal 6.2-12.0 [facility] Comment on above: Order Comment: Comme nts: If not done in prior 24 hours Performed By: #### L 300.4310, L300.3900, L100.0100 ####[facility] [address] [place], [address] Platelets (Bld) [#/Vol] 235 10*3/uL Normal 150-450 [facility] Comment on above: Order Comment: Comme nts: If not done in prior 24 hours Performed By: #### L 300.4310, L300.3900, L100.0100 ####[facility] [address] [place], [address] RBC (Bld) [#/Vol] 4.87 10*6/uL Normal 4.2-5.4 [facility] Comment on above: Order Comment: Comme nts: If not done in prior 24 hours Performed By: #### L 300.4310, L300.3900, L100.0100 ####[facility] [address] [place], [address] RDW SD 48.8 fl High 35.1-43.9 [facility] Comment on above: Order Comment: Comme nts: If not done in prior 24 hours Performed By: #### L 300.4310, L300.3900, L100.0100 ####[facility] [address] [place], [address] WBC (Bld) [#/Vol] 6.9 10*3/uL Normal 4.4-11.0 [facility] Comment on above: Order Comment: Comme nts: If not done in prior 24 hours Performed By: #### L 300.4310, L300.3900, L100.0100 ####[facility] [address] [place], [address] Absolute Lymph 0.86 X10 3/uL Normal 0.83-4.51 [facility] Comment on above: Performed By: #### L 501.5200, L500.4050, L501.2300, L100.0100, L501.9520, L300.3900 ####[facility] [address] [place], [address] Absolute Neut 5.6 X10 3/uL Normal 2.0-7.7 [facility] Comment on above: Performed By: #### L 501.5200, L500.4050, L501.2300, L100.0100, L501.9520, L300.3900 ####[facility] [address] [place], [address] Basophils/100 WBC (Bld) 0.3 % Normal 0-[address] [facility] Comment on above: Performed By: #### L 501.5200, L500.4050, L501.2300, L100.0100, L501.9520, L300.3900 ####[facility] [address] [place], [address] Eosinophils/100 WBC (Bld) 1.9 % Normal 0-5 [facility] Comment on above: Performed By: #### L 501.5200, L500.4050, L501.2300, L100.0100, L501.9520, L300.3900 ####[facility] [address] [place], [address] Erythrocyte distribution width (RBC) [Ratio] 14.3 % Normal 11.6-14.6 [facility] Comment on above: Performed By: #### L 501.5200, L500.4050, L501.2300, L100.0100, L501.9520, L300.3900 ####[facility] [address] [place], [address] Hematocrit (Bld) [Volume fraction] 46.7 % Normal 37-47 [facility] Comment on above: Performed By: #### L 501.5200, L500.4050, L501.2300, L100.0100, L501.9520, L300.3900 ####[facility] [address] [place], [address] Hemoglobin (Bld) [Mass/Vol] 15.1 g/dL High 12.0-15.0 [facility] Comment on above: Performed By: #### L 501.5200, L500.4050, L501.2300, L100.0100, L501.9520, L300.3900 ####[facility] [address] [place], [address] IG% 0.100 Normal 0.0-0.9 [facility] Comment on above: Result Comment: IG% - Immature Granulocytes (promyelocytes, myelocytes andmetamyelocytes) > 1% indicates that a LEFT SHIFT is Present. Performed By: #### L 501.5200, L500.4050, L501.2300, L100.0100, L501.9520, L300.3900 ####[facility] [address] [place], [address] Lymphocytes/100 WBC (Bld) 12.4 % Low 19-41 [facility] Comment on above: Performed By: #### L 501.5200, L500.4050, L501.2300, L100.0100, L501.9520, L300.3900 ####[facility] [address] [place], [address] MCH (RBC) [Entitic mass] 30.6 pg Normal 27.0-32.0 [facility] Comment on above: Performed By: #### L 501.5200, L500.4050, L501.2300, L100.0100, L501.9520, L300.3900 ####[facility] [address] [place], [address] MCHC (RBC) [Mass/Vol] 32.3 g/dL Normal 32-36 [facility] Comment on above: Performed By: #### L 501.5200, L500.4050, L501.2300, L100.0100, L501.9520, L300.3900 ####[facility] [address] [place], [address] MCV (RBC) [Entitic vol] 94.7 fL Normal 81-[address] [facility] Comment on above: Performed By: #### L 501.5200, L500.4050, L501.2300, L100.0100, L501.9520, L300.3900 ####[facility] [address] [place], [address] Monocytes/100 WBC (Bld) 4.1 % Normal 0-[address] [facility] Comment on above: Performed By: #### L 501.5200, L500.4050, L501.2300, L100.0100, L501.9520, L300.3900 ####[facility] [address] [place], [address] Neutrophils/100 WBC (Bld) 81.2 % High 47-70 [facility] Comment on above: Performed By: #### L 501.5200, L500.4050, L501.2300, L100.0100, L501.9520, L300.3900 ####[facility] [address] [place], [address] Nucleated RBC (Bld) [#/Vol] 0 10*3/uL Normal 0-5 [facility] Comment on above: Performed By: #### L 501.5200, L500.4050, L501.2300, L100.0100, L501.9520, L300.3900 ####[facility] [address] [place], [address] Platelet mean volume (Bld) [Entitic vol] 10.8 fL Normal 6.2-12.0 [facility] Comment on above: Performed By: #### L 501.5200, L500.4050, L501.2300, L100.0100, L501.9520, L300.3900 ####[facility] [address] [place], [address] Platelets (Bld) [#/Vol] 227 10*3/uL Normal 150-450 [facility] Comment on above: Performed By: #### L 501.5200, L500.4050, L501.2300, L100.0100, L501.9520, L300.3900 ####[facility] [address] [place], [address] RBC (Bld) [#/Vol] 4.93 10*6/uL Normal 4.2-5.4 [facility] Comment on above: Performed By: #### L 501.5200, L500.4050, L501.2300, L100.0100, L501.9520, L300.3900 ####[facility] [address] [place], [address] RDW SD 50.3 fl High 35.1-43.9 [facility] Comment on above: Performed By: #### L 501.5200, L500.4050, L501.2300, L100.0100, L501.9520, L300.3900 ####[facility] [address] [place], [address] WBC (Bld) [#/Vol] 6.9 10*3/uL Normal 4.4-11.0 [facility] Comment on above: Performed By: #### L 501.5200, L500.4050, L501.2300, L100.0100, L501.9520, L300.3900 ####[facility] [address] [place], [address] Comprehensive Metabolic Prof ilon 05-25-2025 Albumin [Mass/Vol] 3.6 g/dL Normal 3.4-4.8 [facility] Comment on above: Performed By: #### L 501.5200, L500.4050, L501.2300, L100.0100, L501.9520, L300.3900 ####[facility] [address] [place], [address] Albumin/Globulin [Mass ratio] 1.5 {ratio} Normal 0.9-2.4 [facility] Comment on above: Performed By: #### L 501.5200, L500.4050, L501.2300, L100.0100, L501.9520, L300.3900 ####[facility] [address] [place], [address] ALK PHOS 83 U/L Normal 35-104 [facility] Comment on above: Performed By: #### L 501.5200, L500.4050, L501.2300, L100.0100, L501.9520, L300.3900 ####[facility] [address] [place], [address] ALT [Catalytic activity/Vol] 13 U/L Normal <=34 [facility] Comment on above: Performed By: #### L 501.5200, L500.4050, L501.2300, L100.0100, L501.9520, L300.3900 ####[facility] [address] [place], [address] AST [Catalytic activity/Vol] 21 U/L Normal <=31 [facility] Comment on above: Performed By: #### L 501.5200, L500.4050, L501.2300, L100.0100, L501.9520, L300.3900 ####[facility] [address] [place], [address] Bilirubin [Mass/Vol] 0.48 mg/dL Normal 0.00-1.30 [facility] Comment on above: Performed By: #### L 501.5200, L500.4050, L501.2300, L100.0100, L501.9520, L300.3900 ####[facility] [address] [place], [address] BUN/CRE 10.1 RATIO Normal 10-20 [facility] Comment on above: Performed By: #### L 501.5200, L500.4050, L501.2300, L100.0100, L501.9520, L300.3900 ####[facility] [address] [place], [address] Calcium [Mass/Vol] 9.0 mg/dL Normal 7.6-11.0 [facility] Comment on above: Performed By: #### L 501.5200, L500.4050, L501.2300, L100.0100, L501.9520, L300.3900 ####[facility] [address] [place], [address] Chloride [Moles/Vol] 105 mmol/L Normal 98-108 [facility] Comment on above: Performed By: #### L 501.5200, L500.4050, L501.2300, L100.0100, L501.9520, L300.3900 ####[facility] [address] [place], [address] CO2 [Moles/Vol] 25.7 mmol/L Normal 21.0-32.0 [facility] Comment on above: Performed By: #### L 501.5200, L500.4050, L501.2300, L100.0100, L501.9520, L300.3900 ####[facility] [address] [place], [address] Creatinine [Mass/Vol] 1.41 mg/dL High 0.70-1.20 [facility] Comment on above: Performed By: #### L 501.5200, L500.4050, L501.2300, L100.0100, L501.9520, L300.3900 ####[facility] [address] [place], [address] ECRCL 46.64 ml/min Low 50-250 [facility] Comment on above: Performed By: #### L 501.5200, L500.4050, L501.2300, L100.0100, L501.9520, L300.3900 ####[facility] [address] [place], [address] GAP 10 Normal 5-15 [facility] Comment on above: Performed By: #### L 501.5200, L500.4050, L501.2300, L100.0100, L501.9520, L300.3900 ####[facility] [address] [place], [address] GFR/1.73 sq M.predicted among non-blacks MDRD (S/P/Bld) [Vol rate/Area] 42 mL/min/{1.73_m2} Low >60 [facility] Comment on above: Result Comment: mL/m in/1.73m2 CKD-EPI Creatinine Equation (2020) Performed By: #### L 501.5200, L500.4050, L501.2300, L100.0100, L501.9520, L300.3900 ####[facility] [facility] [address] [place], [address] Globulin (S) [Mass/Vol] 2.4 g/dL Normal 2.2-4.2 [facility] Comment on above: Performed By: #### L 501.5200, L500.4050, L501.2300, L100.0100, L501.9520, L300.3900 ####[facility] [address] [place], [address] Glucose [Mass/Vol] 125 mg/dL High 70-99 [facility] Comment on above: Performed By: #### L 501.5200, L500.4050, L501.2300, L100.0100, L501.9520, L300.3900 ####[facility] [address] [place], [address] Potassium [Moles/Vol] 3.9 mmol/L Normal 3.3-5.1 [facility] Comment on above: Performed By: #### L 501.5200, L500.4050, L501.2300, L100.0100, L501.9520, L300.3900 ####[facility] [address] [place], [address] Sodium [Moles/Vol] 141 mmol/L Normal 133-145 [facility] Comment on above: Performed By: #### L 501.5200, L500.4050, L501.2300, L100.0100, L501.9520, L300.3900 ####[facility] [address] [place], [address] T PROT 6.0 g/dL Normal 5.9-8.4 [facility] Comment on above: Performed By: #### L 501.5200, L500.4050, L501.2300, L100.0100, L501.9520, L300.3900 ####[facility] [address] [place], [address] Urea nitrogen [Mass/Vol] 14 mg/dL Normal 4-19 [facility] Comment on above: Performed By: #### L 501.5200, L500.4050, L501.2300, L100.0100, L501.9520, L300.3900 ####[facility] [address] [place], [address] Magnesiumon 05-25-2025 Magnesium [Mass/Vol] 2.0 mg/dL Normal 1.5-2.2 [facility] Comment on above: Performed By: #### L 501.5200, L500.4050, L501.2300, L100.0100, L501.9520, L300.3900 ####[facility] [address] [place], [address] Partial Thromboplast Timeon 05-25-2025 aPTT Coag (Bld) [Time] 28.2 s Normal 24.1-36.2 [facility] Comment on above: Order Comment: Comme nts: If not done in prior 24 hours Performed By: #### L 300.4310, L300.3900, L100.0100 ####[facility] [address] [place], [address] Phosphoruson 05-25-2025 Phosphate [Mass/Vol] 2.2 mg/dL Low 2.7-4.5 [facility] Comment on above: Performed By: #### L 501.5200, L500.4050, L501.2300, L100.0100, L501.9520, L300.3900 ####[facility] [address] [place], [address] Prothrombin Time w/INRon INR Coag (PPP) [Relative time] 1.2 {INR} Normal [facility] Comment on above: Order Comment: Comme nts: If not done in prior 24 hours Performed By: #### L 300.4310, L300.3900, L100.0100 ####[facility] [address] [place], [address] PT Coag (PPP) [Time] 14.9 s Normal 11.7-14.9 [facility] Comment on above: Order Comment: Comme nts: If not done in prior 24 hours Performed By: #### L 300.4310, L300.3900, L100.0100 ####[facility] [address] [place], [address] INR Coag (PPP) [Relative time] 1.0 {INR} Normal [facility] Comment on above: Performed By: #### L 501.5200, L500.4050, L501.2300, L100.0100, L501.9520, L300.3900 ####[facility] [address] [place], [address] PT Coag (PPP) [Time] 13.5 s Normal 11.7-14.9 [facility] Comment on above: Performed By: #### L 501.5200, L500.4050, L501.2300, L100.0100, L501.9520, L300.3900 ####[facility] [address] [place], [address] RESPIRATORY PANEL MOLECULARo n 05-25-2025 RP PANEL Normal [facility] Comment on above: Performed By: #### M 100.638 ####[facility] [address] [place], [address] Thyroid Stim Hormone (TSH)on 05-25-2025 TSH 1.300 uIU/mL Normal 0.300-4.200 [facility] Comment on above: Performed By: #### L 501.5200, L500.4050, L501.2300, L100.0100, L501.9520, L300.3900 ####[facility] [address] [place], [address] 12 Lead EKGon 05-24-2025 12 Lead EKG Normal [facility] Basic Metabolic Profile (BMP )on 05-24-2025 BUN/CRE 10.5 RATIO Normal 10-20 [facility] Comment on above: Performed By: #### L 300.3900, L300.4310, L503.7505, L300.8000, L500.2500, L503.6005, L100.0100 ####[facility] [address] [place], [address] Calcium [Mass/Vol] 9.1 mg/dL Normal 7.6-11.0 [facility] Comment on above: Performed By: #### L 300.3900, L300.4310, L503.7505, L300.8000, L500.2500, L503.6005, L100.0100 ####[facility] [address] [place], [address] Chloride [Moles/Vol] 104 mmol/L Normal 98-108 [facility] Comment on above: Performed By: #### L 300.3900, L300.4310, L503.7505, L300.8000, L500.2500, L503.6005, L100.0100 ####[facility] [address] [place], [place], [phone] CO2 [Moles/Vol] 25.4 mmol/L Normal 21.0-32.0 [facility] Comment on above: Performed By: #### L 300.3900, L300.4310, L503.7505, L300.8000, L500.2500, L503.6005, L100.0100 ####[facility] [address] [place], [place], [phone] Creatinine [Mass/Vol] 1.53 mg/dL High 0.70-1.20 [facility] Comment on above: Performed By: #### L 300.3900, L300.4310, L503.7505, L300.8000, L500.2500, L503.6005, L100.0100 ####[facility] [address] [place], [place], [phone] ECRCL 43.53 ml/min Low 50-250 [facility] Comment on above: Performed By: #### L 300.3900, L300.4310, L503.7505, L300.8000, L500.2500, L503.6005, L100.0100 ####[facility] [address] [place], [address] GAP 12 Normal 5-15 [facility] Comment on above: Performed By: #### L 300.3900, L300.4310, L503.7505, L300.8000, L500.2500, L503.6005, L100.0100 ####[facility] [address] [place], [place], [phone]) GFR/1.73 sq M.predicted among non-blacks MDRD (S/P/Bld) [Vol rate/Area] 38 mL/min/{1.73_m2} Low >60 [facility] Comment on above: Result Comment: mL/m in/1.73m2 CKD-EPI Creatinine Equation (2020) Performed By: #### L 300.3900, L300.4310, L503.7505, L300.8000, L500.2500, L503.6005, L100.0100 ####[facility] [address] [place], [address] Glucose [Mass/Vol] 104 mg/dL High 70-99 [facility] Comment on above: Performed By: #### L 300.3900, L300.4310, L503.7505, L300.8000, L500.2500, L503.6005, L100.0100 ####[facility] [address] [place], [address] Potassium [Moles/Vol] 3.1 mmol/L Low 3.3-5.1 [facility] Comment on above: Performed By: #### L 300.3900, L300.4310, L503.7505, L300.8000, L500.2500, L503.6005, L100.0100 ####[facility] [address] [place], [address] Sodium [Moles/Vol] 141 mmol/L Normal 133-145 [facility] Comment on above: Performed By: #### L 300.3900, L300.4310, L503.7505, L300.8000, L500.2500, L503.6005, L100.0100 ####[facility] [address] [place], [address] Urea nitrogen [Mass/Vol] 16 mg/dL Normal 4-19 [facility] Comment on above: Performed By: #### L 300.3900, L300.4310, L503.7505, L300.8000, L500.2500, L503.6005, L100.0100 ####[facility] [address] [place], [address] CBC W/Diff, Automatedon 11-0 7-2025 Absolute Lymph 1.94 X10 3/uL Normal 0.83-4.51 [facility] Comment on above: Performed By: #### L 300.3900, L300.4310, L503.7505, L300.8000, L500.2500, L503.6005, L100.0100 ####[facility] [address] [place], [address] Absolute Neut 4.6 X10 3/uL Normal 2.0-7.7 [facility] Comment on above: Performed By: #### L 300.3900, L300.4310, L503.7505, L300.8000, L500.2500, L503.6005, L100.0100 ####[facility] [address] [place], [address] Basophils/100 WBC (Bld) 0.5 % Normal 0-[address] [facility] Comment on above: Performed By: #### L 300.3900, L300.4310, L503.7505, L300.8000, L500.2500, L503.6005, L100.0100 ####[facility] [address] [place], [address] Eosinophils/100 WBC (Bld) 2.7 % Normal 0-5 [facility] Comment on above: Performed By: #### L 300.3900, L300.4310, L503.7505, L300.8000, L500.2500, L503.6005, L100.0100 ####[facility] [address] [place], [address] Erythrocyte distribution width (RBC) [Ratio] 14.0 % Normal 11.6-14.6 [facility] Comment on above: Performed By: #### L 300.3900, L300.4310, L503.7505, L300.8000, L500.2500, L503.6005, L100.0100 ####[facility] [address] [place], [address] Hematocrit (Bld) [Volume fraction] 46.2 % Normal 37-47 [facility] Comment on above: Performed By: #### L 300.3900, L300.4310, L503.7505, L300.8000, L500.2500, L503.6005, L100.0100 ####[facility] [address] [place], [address] Hemoglobin (Bld) [Mass/Vol] 15.6 g/dL High 12.0-15.0 [facility] Comment on above: Performed By: #### L 300.3900, L300.4310, L503.7505, L300.8000, L500.2500, L503.6005, L100.0100 ####[facility] [address] [place], [address] IG% 0.100 Normal 0.0-0.9 [facility] Comment on above: Result Comment: IG% - Immature Granulocytes (promyelocytes, myelocytes andmetamyelocytes) > 1% indicates that a LEFT SHIFT is Present. Performed By: #### L 300.3900, L300.4310, L503.7505, L300.8000, L500.2500, L503.6005, L100.0100 ####[facility] [address] [place], [address] Lymphocytes/100 WBC (Bld) 25.8 % Normal 19-41 [facility] Comment on above: Performed By: #### L 300.3900, L300.4310, L503.7505, L300.8000, L500.2500, L503.6005, L100.0100 ####[facility] [address] [place], [address] MCH (RBC) [Entitic mass] 31.3 pg Normal 27.0-32.0 [facility] Comment on above: Performed By: #### L 300.3900, L300.4310, L503.7505, L300.8000, L500.2500, L503.6005, L100.0100 ####[facility] [address] [place], [address] MCHC (RBC) [Mass/Vol] 33.8 g/dL Normal 32-36 [facility] Comment on above: Performed By: #### L 300.3900, L300.4310, L503.7505, L300.8000, L500.2500, L503.6005, L100.0100 ####[facility] [address] [place], [address] MCV (RBC) [Entitic vol] 92.8 fL Normal 81-99 [facility] Comment on above: Performed By: #### L 300.3900, L300.4310, L503.7505, L300.8000, L500.2500, L503.6005, L100.0100 ####[facility] [address] [place], [address] Monocytes/100 WBC (Bld) 9.1 % Normal 0-10 [facility] Comment on above: Performed By: #### L 300.3900, L300.4310, L503.7505, L300.8000, L500.2500, L503.6005, L100.0100 ####[facility] [address] [place], [address] Neutrophils/100 WBC (Bld) 61.8 % Normal 47-70 [facility] Comment on above: Performed By: #### L 300.3900, L300.4310, L503.7505, L300.8000, L500.2500, L503.6005, L100.0100 ####[facility] [address] [place], [address] Nucleated RBC (Bld) [#/Vol] 0 10*3/uL Normal 0-5 [facility] Comment on above: Performed By: #### L 300.3900, L300.4310, L503.7505, L300.8000, L500.2500, L503.6005, L100.0100 ####[facility] [address] [place], [address] Platelet mean volume (Bld) [Entitic vol] 11.3 fL Normal 6.2-12.0 [facility] Comment on above: Performed By: #### L 300.3900, L300.4310, L503.7505, L300.8000, L500.2500, L503.6005, L100.0100 ####[facility] [address] [place], [address] Platelets (Bld) [#/Vol] 238 10*3/uL Normal 150-450 [facility] Comment on above: Performed By: #### L 300.3900, L300.4310, L503.7505, L300.8000, L500.2500, L503.6005, L100.0100 ####[facility] [address] [place], [address] RBC (Bld) [#/Vol] 4.98 10*6/uL Normal 4.2-5.4 [facility] Comment on above: Performed By: #### L 300.3900, L300.4310, L503.7505, L300.8000, L500.2500, L503.6005, L100.0100 ####[facility] [address] [place], [address] RDW SD 47.8 fl High 35.1-43.9 [facility] Comment on above: Performed By: #### L 300.3900, L300.4310, L503.7505, L300.8000, L500.2500, L503.6005, L100.0100 ####[facility] [address] [place], [place], [id number] WBC (Bld) [#/Vol] 7.5 10*3/uL Normal 4.4-11.0 [facility] Comment on above: Performed By: #### L 300.3900, L300.4310, L503.7505, L300.8000, L500.2500, L503.6005, L100.0100 ####[facility] [address] [place], [place], [address] CNOVon 05-24-2025 CNOV Office Visit (FAMPWS ) PERNELL RODRIGUEZ ([id number]) 1960 F Date Time Provider Department 05/24/25 1:20 PM [facility] During your visit today, we recorded the following information about you: Temperature Pulse Respiration Blood pressure 98 degrees 94/minute 20/minute 104/68 Weight Height 106.7 kg 1.613 m Homer Bradford MD 05/24/2025 4:36 PM Signed Chief Complaint Patient presents with: Well Adult HPI Pernell Pepe Michael is a 65 year old female who presents here today for a Physical. Patient with complex past medical hx as well as those reviewed and addressed below in ROS. Currently resides in [facility]eless skilled nursing. Patient in office today and states that she's very sick. Was seen in Urgent Care and dx with pneumonia and given an abx. States she took 1 pill and made her sick. She then went into the ED and they said she has a respiratory infection and prescribed her Prednisone, which did help her but she's now out. Her illness is becoming much worse. She asked her [employer] for refills of her Nebulizer solution, but was advised she would not receive any refills until she was seen in the office. She is experiencing cough with phlegm production, chest pain due to coughing and illness, sob, and wheezing. Pernell Rodriguez is a 65-year-old female presenting with persistent cough, green sputum production, chest pain, dyspnea, wheezing, and chills following a recent respiratory infection. Approximately 3 weeks ago, Pernell was diagnosed with pneumonia at an urgent care clinic near [facility] and was prescribed a blue antibiotic, possibly doxycycline. She took one dose, which caused nausea and vomiting, and she did not complete the course. She was subsequently evaluated at [place] [facility], where pneumonia was ruled out and she was diagnosed with a respiratory infection. She was prescribed prednisone 20 mg daily for 7 days, which she completed, but reports it did not help. she was advised to complete the doxy ut she did not take any more. the chest x-ray in ER read by rdiology showed right sided plural effusion/atalectasis but a consolidation could not be ruled out. Pernell continues to experience cough with green sputum, chest pain, dyspnea, wheezing, and chills. She reports two episodes of emesis since the initial doxycycline dose. She has not checked her temperature and is unsure about fevers. She denies hemoptysis. She uses a nebulizer twice daily, occasionally three times daily, but has difficulty obtaining replacement tubing. She reports challenges with medication adherence due to skilled nursing rules requiring her to be outside from 8:00-10:00 and 16:00-18:00, sometimes before she can take her morning medications. She expresses frustration with being outside in cold and rainy weather. Past medical history, appointments, medications, allergies reviewed. Previous Medical History PAST MEDICAL HISTORY Diagnosis Date ASHD (arteriosclerotic heart disease) 10/25/[address] Goins Bilateral leg edema 04/25/2015 Bipolar affective disorder (HCC) 04/25/[address] Colindres Chest pain 02/14/[address] Jacob in [facility]. Had a normal cardiac CTA in 2009 with no calcium. Chronic back pain greater than 3 months duration 04/02/2015 Chronic insomnia 03/12/2020 Ilya Calderón ([facility]) on melatonin. Chronic obstructive pulmonary disease (HCC) 04/25/2015 Chronic pain 01/14/2014 Constipation 02/12/2014 [place] or callus 11/16/2015 Current use of proton [...] 04/16/2014 Major depressive disorder, recurrent episode, moderate ([facility]) 04/25/2015 On disability Migraine without aura and without status migrainosus, not intractable 04/28/[address] Calderón Mixed hyperlipidemia 01/14/2014 Mixed incontinence urge and stress (male)(female) 07/25/2018 Morbid obesity due to excess calories ([facility]) 10/27/2016 Muscle weakness (generalized) 07/25/2018 Myofascial pain 04/16/2014 Nodule of left lung 12/17/2015 CT 09/2018 still stable, no further CT's needed. Seen on CT of abd/pelv 11/2015. CT 06/2016 showed stable left nodule, Stable 09/2016 repeat 10/2017: stable repeat 06/2018 Obesity, Class III, BMI >= 40 11/11/2023 Paroxysmal atrial fibrillation (HCC) 11/23/2021 Perforation of lef (more content not included)... Normal [facility] CTA Chest W/WO Contraston CTA Chest W/WO Contrast Normal [facility] Chest PA and Lateralon 05-24 Chest PA and Lateral Normal [facility] D-Dimer Quantitative (DVT/PE )on 05-24-2025 D-DIMER QUANT 1.43 FEU/ug/m Invalid Interpretation Code 0.27-0.49 [facility] Comment on above: Result Comment: D-Di lorene ELEVATED (>0.49): Additional studies and clinicalassessments are indicated to conclude diagnosis of:Deep Vein Thrombosis (DVT) or Pulmonary Embolism (PE)CRITICAL VALUE CALLED TO JAEL CABRERA05/24/25 1642 Olivia Butler.RESULTS READ BACK BY SAME. Performed By: #### L 300.3900, L300.4310, L503.7505, L300.8000, L500.2500, L503.6005, L100.0100 ####[facility] [address] [place], [address] Emergency Department Summary on 05-24-2025 Emergency Department Summary Normal [facility] H AND P Exam - Hospitaliston 05-24-2025 H&P Exam - Hospitalist Normal [facility] L501.4021on 05-24-2025 Trop T High Sen 19 ng/L High <=14 [facility] Comment on above: Performed By: #### L 501.4021 ####[facility] [address] [place], [address] Lactic Acidon 05-24-2025 Lactate [Moles/Vol] 1.1 mmol/L Normal 0.0-2.0 [facility] Comment on above: Order Comment: Y Performed By: #### L 300.3900, L300.4310, L503.7505, L300.8000, L500.2500, L503.6005, L100.0100 ####[facility] [address] [place], [address] M100.678on 05-24-2025 M100.678 Pending SARS-CoV-2 (COVID 19) Negative INFLUENZA A Negative INFLUENZA B Negative RSV PCR Negative Normal [facility] Comment on above: Performed By: #### M 100.678 ####[facility] [address] [place], [place], [id number] Partial Thromboplast Timeon 05-24-2025 aPTT Coag (Bld) [Time] 27.4 s Normal 24.1-36.2 [facility] Comment on above: Performed By: #### L 300.3900, L300.4310, L503.7505, L300.8000, L500.2500, L503.6005, L100.0100 ####[facility] [address] [place], [place], [id number] Pro- Brain NATRIURETIC PEPTI Radha 05-24-2025 Natriuretic peptide B (Bld) [Mass/Vol] 86 pg/mL Normal <=900 [facility] Comment on above: Result Comment: Hear t Failure Unlikely: < 300 pg/mLHeart Failure Likely< 50 Years: > 450 pg/mL50-75 Years: > 900 pg/mL>75 Years: > 1800 pg/mL Performed By: #### L 300.3900, L300.4310, L503.7505, L300.8000, L500.2500, L503.6005, L100.0100 ####[facility] [address] [place], [place], [id number] Prothrombin Time w/INRon INR Coag (PPP) [Relative time] 1.0 {INR} Normal [facility] Comment on above: Performed By: #### L 300.3900, L300.4310, L503.7505, L300.8000, L500.2500, L503.6005, L100.0100 ####[facility] [address] [place], [address] PT Coag (PPP) [Time] 13.6 s Normal 11.7-14.9 [facility] Comment on above: Performed By: #### L 300.3900, L300.4310, L503.7505, L300.8000, L500.2500, L503.6005, L100.0100 ####[facility] [address] [place], [address] Troponin T HS 2 HRon 025 Trop T High Sen 18 ng/L High <=14 [facility] Comment on above: Performed By: #### L 499.0042 ####[facility] [address] [place], [address] Troponin T HS 4 HRon 025 Trop T High Sen 19 ng/L High <=14 [facility] Comment on above: Performed By: #### L 499.0043 ####[facility] [address] [place], [address] Urinalysis, Completeon 05-24 BACTERIA 1+ /hpf Normal None Seen [facility] Comment on above: Order Comment: CLEAN CATCH Performed By: #### L 400.0001 ####[facility] [address] [place], [address] CAST,HYALINE 0-5 SEEN Normal 0-5 [facility] Comment on above: Order Comment: CLEAN CATCH Performed By: #### L 400.0001 ####[facility] [address] [place], [address] EPI,SQUAMOUS 0-5 SEEN Normal 5-10 [facility] Comment on above: Order Comment: CLEAN CATCH Performed By: #### L 400.0001 ####[facility] [address] [place], [address] WBC 0-5 SEEN Normal 0-5 [facility] Comment on above: Order Comment: CLEAN CATCH Performed By: #### L 400.0001 ####[facility] [address] [place], [address] Mucus Ql (Urine sed) 0 SEEN Normal [facility] Comment on above: Order Comment: CLEAN CATCH Performed By: #### L 400.0001 ####[facility] [address] [place], [address] RBC 0 SEEN Normal 0-5 [facility] Comment on above: Order Comment: CLEAN CATCH Performed By: #### L 400.0001 ####[facility] [address] [place], [place], [id number] 12 Lead EKGon 04-30-2025 12 Lead EKG Normal [facility] Absolute lymphocyte countOrd ered By: Ortiz Pinto on 04-30-2025 Lymphocytes Auto (Unsp spec) [#/Vol] 2.70 10*3/uL 0.83-4.51 [facility] Absolute neutrophil countOrd ered By: Ortiz Pinto on 04-30-2025 Neutrophils (Bld) [#/Vol] 4.8 10*3/uL 2.0-7.7 [facility] Anion gap in Serum or Plasma Ordered By: Ortiz Pinto on 04-30-2025 Anion gap [Moles/Vol] 14 mmol/L 11-29 [facility] Automated blood erythrocyte countOrdered By: Ortiz Pinto on 04-30-2025 RBC (Bld) [#/Vol] 5.19 10*6/uL Normal 4.2-5.4 [facility] Comment on above: Performed By: #### L 100.0100, L500.2500, L501.4021 ####[facility] [address] [place], [address] Automated blood hematocrit ( percentage)Ordered By: Ortiz Pinto on 04-30-2025 Hematocrit (Bld) [Volume fraction] 49.5 % High 37-47 [facility] Comment on above: Performed By: #### L 100.0100, L500.2500, L501.4021 ####[facility] [address] [place], [address] Automated lymphocyte count a s percentage of total leukocytesOrdered By: Ortiz Pinto on 04-30-2025 Lymphocytes/100 WBC Auto (Unsp spec) 31.2 % 19- [facility] BUN/creatinine ratioOrdered By: Ortiz Pinto on 04-30-2025 Urea nitrogen/Creatinine [Mass ratio] 10.6 mg/mg 10- [facility] Basic Metabolic Profile (BMP )on 04-30-2025 BUN/CRE 10.6 RATIO Normal 10-20 [facility] Comment on above: Performed By: #### L 100.0100, L500.2500, L501.4021 ####[facility] [address] [place], [address] ECRCL 39.90 ml/min Low 50-250 [facility] Comment on above: Performed By: #### L 100.0100, L500.2500, L501.4021 ####[facility] [address] [place], [address] GAP 14 Normal 5-15 [facility] Comment on above: Performed By: #### L 100.0100, L500.2500, L501.4021 ####[facility] [address] [place], [address] Potassium [Moles/Vol] 3.6 mmol/L Normal 3.3-5.1 [facility] Comment on above: Performed By: #### L 100.0100, L500.2500, L501.4021 ####[facility] [address] [place], [address] Basophil percentageOrdered B y: Ortiz Pinto on 04-30-2025 Basophils/100 WBC (Bld) 0.2 % Normal 0-[address] [facility] Comment on above: Performed By: #### L 100.0100, L500.2500, L501.4021 ####[facility] [address] [place], [address] CBC W/Diff, Automatedon 04-17 Absolute Lymph 2.70 X10 3/uL Normal 0.83-4.51 [facility] Comment on above: Performed By: #### L 100.0100, L500.2500, L501.4021 ####[facility] [address] [place], [address] Absolute Neut 4.8 X10 3/uL Normal 2.0-7.7 [facility] Comment on above: Performed By: #### L 100.0100, L500.2500, L501.4021 ####[facility] [address] [place], [address] IG% 0.100 Normal 0.0-0.9 [facility] Comment on above: Result Comment: IG% - Immature Granulocytes (promyelocytes, myelocytes andmetamyelocytes) > 1% indicates that a LEFT SHIFT is Present. Performed By: #### L 100.0100, L500.2500, L501.4021 ####[facility] [address] [place], [address] Lymphocytes/100 WBC (Bld) 31.2 % Normal 19-41 [facility] Comment on above: Performed By: #### L 100.0100, L500.2500, L501.4021 ####[facility] [address] [place], [address] Nucleated RBC (Bld) [#/Vol] 0 10*3/uL Normal 0-5 [facility] Comment on above: Performed By: #### L 100.0100, L500.2500, L501.4021 ####[facility] [address] [place], [address] RDW SD 50.4 fl High 35.1-43.9 [facility] Comment on above: Performed By: #### L 100.0100, L500.2500, L501.4021 ####[facility] [address] [place], [address] Carbon dioxide, total [Moles /volume] in Central venous bloodOrdered By: Ortiz Pinto on 04-30-2025 CO2 [Moles/Vol] 26.2 mmol/L Normal 21.0-32.0 [facility] Comment on above: Performed By: #### L 100.0100, L500.2500, L501.4021 ####[facility] [address] [place], [address] Chest PA and Lateralon 04-30 Chest PA and Lateral Normal [facility] Chloride assayOrdered By: Rudy Pinto on 04-30-2025 Chloride [Moles/Vol] 100 mmol/L Normal 98-108 [facility] Comment on above: Performed By: #### L 100.0100, L500.2500, L501.4021 ####[facility] [address] [place], [address] Electrocardiogram reportOrde red By: Az Engle on 04-30-2025 EKG study [facility] [address] [place] [address] 12 Lead EKG 04/30/25 1812 MR#: [id number] Acct: [id number] Name: PERNELL RODRIGUEZ CHEKO Rep #:[id number] : 1960 65 From: Az Engle [...] Normal ECG Confirmed by JOSEPH GUSTAFSON, [place] ([id number]), online content editor FLORES BOUCHER ([id number]) on 0:54:59 AM Referred By: JW Confirmed By: AZ ENGLE MD 05/01/25 1052 Date _ Az Engle MD CC: Dr. Ortiz Pinto MD; Dr. Homer Bradford MD ~ Signed [facility] Other Emergency Department Summary on 04-30-2025 Emergency Department Summary Normal [facility] Eosinophil percentageOrdered By: Ortiz Pinto on 04-30-2025 Eosinophils/100 WBC (Bld) 5.1 % High 0-5 [facility] Comment on above: Performed By: #### L 100.0100, L500.2500, L501.4021 ####[facility] [address] [place], [address] Erythrocyte distribution wid th ratioOrdered By: Ortiz Pinto on 04-30-2025 Erythrocyte distribution width (RBC) [Ratio] 14.4 % Normal 11.6-14.6 [facility] Comment on above: Performed By: #### L 100.0100, L500.2500, L501.4021 ####[facility] [address] [place], [address] Erythrocyte distribution wid th standard deviationOrdered By: Ortiz Pinto on 04-30-2025 Erythrocyte distribution width (RBC) [Ratio] 50.4 fl High 35.1-43.9 [facility] Glomerular filtration rate ( GFR) estimation/1.73 sq m using serum, plasma, or whole bOrdered By: Ortiz Pinto on 04-30-2025 GFR/1.73 sq M.predicted among non-blacks MDRD (S/P/Bld) [Vol rate/Area] 34 mL/min/{1.73_m2} Low >60 [facility] Comment on above: mL/min/1.73m2 CKD-EP I Creatinine Equation (2020) Result Comment: mL/m in/1.73m2 CKD-EPI Creatinine Equation (2020) Performed By: #### L 100.0100, L500.2500, L501.4021 ####[facility] [address] [place], [address] Hemoglobin measurementOrdere d By: Ortiz Pinto on 04-30-2025 Hemoglobin (Bld) [Mass/Vol] 15.9 g/dL High 12.0-15.0 [facility] Comment on above: Performed By: #### L 100.0100, L500.2500, L501.4021 ####[facility] [address] [place], [address] Immature granulocytes/100 WB C Auto (Bld)Ordered By: Ortiz Pinto on 04-30-2025 Immature granulocytes/100 WBC (Bld) 0.100 % 0.0-0.9 [facility] Comment on above: IG% - Immature Granu locytes (promyelocytes, myelocytes and metamyelocytes) > 1% indicates that a LEFT SHIFT is Present. Influenza virus A and B and SARS-CoV-2 (COVID-19) and Respiratory syncytial virus RNAOrdered By: Ortiz Pinto on 04-30-2025 SARS-CoV-2 (COVID-19) RNA GERARDO+probe Ql (Unsp spec) [facility] L501.4021on 04-30-2025 Trop T High Sen 18 ng/L High <=14 [facility] Comment on above: Performed By: #### L 100.0100, L500.2500, L501.4021 ####[facility] [address] [place], [address] M100.678on 04-30-2025 M100.678 SARS-CoV-2 (COVID 19 ) Negative INFLUENZA A Negative INFLUENZA B Negative RSV PCR Negative Normal [facility] Comment on above: Performed By: #### M 100.678 ####[facility] [address] [place], [address] MCV (mean corpuscular volume ) determinationOrdered By: Ortiz Pinto on 04-30-2025 MCV (RBC) [Entitic vol] 95.4 fL Normal 81-[address] [facility] Comment on above: Performed By: #### L 100.0100, L500.2500, L501.4021 ####[facility] [address] [place], [address] Mean corpuscular hemoglobin (MCH) determinationOrdered By: Ortiz Pinto on 04-30-2025 MCH (RBC) [Entitic mass] 30.6 pg Normal 27.0-32.0 [facility] Comment on above: Performed By: #### L 100.0100, L500.2500, L501.4021 ####[facility] [address] [place], [address] Mean corpuscular hemoglobin concentration (MCHC) determinationOrdered By: Ortiz Pinto on 04-30-2025 MCHC (RBC) [Mass/Vol] 32.1 g/dL Normal 32-36 [facility] Comment on above: Performed By: #### L 100.0100, L500.2500, L501.4021 ####[facility] [address] [place], [address] Mean platelet volume determi nationOrdered By: Ortiz Pinto on 04-30-2025 Platelet mean volume (Bld) [Entitic vol] 10.3 fL Normal 6.2-12.0 [facility] Comment on above: Performed By: #### L 100.0100, L500.2500, L501.4021 ####[facility] [address] [place], [address] Monocyte percentageOrdered B y: Ortiz Pinto on 04-30-2025 Monocytes/100 WBC (Bld) 8.0 % Normal 0-[address] [facility] Comment on above: Performed By: #### L 100.0100, L500.2500, L501.4021 ####[facility] [address] [place], [address] Neutrophil percentageOrdered By: Ortiz Pinto on 04-30-2025 Neutrophils/100 WBC (Bld) 55.4 % Normal 47-70 [facility] Comment on above: Performed By: #### L 100.0100, L500.2500, L501.4021 ####[facility] [address] [place], [address] Nucleated red blood cell per centageOrdered By: Ortiz Pinto on 04-30-2025 Nucleated RBC/100 WBC (Bld) [Ratio] 0 % 0-5 [facility] Platelet countOrdered By: Rudy calderonscooter Blair on 04-30-2025 Platelets (Bld) [#/Vol] 275 10*3/uL Normal 150-450 [facility] Comment on above: Performed By: #### L 100.0100, L500.2500, L501.4021 ####[facility] [address] [place], [address] Potassium measurement (mass/ volume)Ordered By: Ortiz Pinto on 04-30-2025 Potassium (Unsp spec) [Mass/Vol] 3.6 mmol/L 3.3-5.1 [facility] Serum creatinine measurement (mass/volume)Ordered By: Ortiz Pinto on 04-30-2025 Creatinine [Mass/Vol] 1.69 mg/dL High 0.70-1.20 [facility] Comment on above: Performed By: #### L 100.0100, L500.2500, L501.4021 ####[facility] [address] [place], [address] Serum glucose measurement (m ass/volume)Ordered By: Ortiz Pinto on 04-30-2025 Glucose [Mass/Vol] 103 mg/dL High 70-99 [facility] Comment on above: Performed By: #### L 100.0100, L500.2500, L501.4021 ####[facility] [address] [place], [address] Serum or plasma calcium dane urement (mass/volume)Ordered By: Ortiz Pinto on 04-30-2025 Calcium [Mass/Vol] 9.6 mg/dL Normal 7.6-11.0 [facility] Comment on above: Performed By: #### L 100.0100, L500.2500, L501.4021 ####[facility] [address] [place], [address] Serum or plasma urea nitroge n measurement (mass/volume)Ordered By: Ortiz Pinto on 04-30-2025 Urea nitrogen [Mass/Vol] 18 mg/dL Normal 4-19 [facility] Comment on above: Performed By: #### L 100.0100, L500.2500, L501.4021 ####[facility] [address] [place], [address] Sodium levelOrdered By: Carlos Pinto on 04-30-2025 Sodium [Moles/Vol] 140 mmol/L Normal 133-145 [facility] Comment on above: Performed By: #### L 100.0100, L500.2500, L501.4021 ####[facility] [address] [place], [address] Troponin T HS 2 HRon 025 Trop T High Sen 16 ng/L High <=14 [facility] Comment on above: Performed By: #### L 499.0042 ####[facility] [address] [place], [address] Troponin T HS 4 HRon 025 Trop T High Sen Normal <=14 [facility] Comment on above: Result Comment: Canc elled via OM: Order cancelled - Patient discharged Performed By: #### L 499.0043 ####[facility] [address] [place], [address] Troponin T.cardiac [Mass/vol ume] in Serum or Plasma by High sensitivity methodOrdered By: Ortiz Pinto on 04-30-2025 Troponin T.cardiac High sensitivity method [Mass/Vol] 16 ng/L High <14 [facility] Troponin T.cardiac High sensitivity method [Mass/Vol] 18 ng/L High <14 [facility] Comment on above: Delta: 23 on 5-1122 White blood cell (WBC) count Ordered By: Ortiz Pinto on 04-30-2025 WBC (Bld) [#/Vol] 8.7 10*3/uL Normal 4.4-11.0 [facility] Comment on above: Performed By: #### L 100.0100, L500.2500, L501.4021 ####[facility] [address] [place], [address] CNOVon 04-04-2025 CNOV Office Visit (ORTHWS ) PERNELL RODRIGUEZ ([id number]) 1960 F Date Time Provider Department 04/04/25 11:20 AM ORTIZ MASSEY During your visit today, we recorded the following information about you: Ortiz Massey MD 04/05/2025 11:29 AM Signed Ortiz Massey MD Department of Orthopaedics Orthopaedics [address] [facility] [address] Dept: [phone] Dept April 04, 2025 CHIEF COMPLAINT: New [...] states the heating pad works as well. HPI Pernell Rodriguez is a 65-year-old female with [...] complication, without long-term current use of insulin ([facility]) 1. Adhesive capsulitis of left [...] and further assess adhesive capsulitis; explained that [employer] insurance may require additional physical therapy sessions [...] complication, without long-term current use of insulin ([facility]), patient to schedule visit as per follow up discussed. OBJECTIVE: Ms. Pernell Rodriguez is a pleasant 65 year old in no apparent distress. Gen:LMP 02/22/2006 nl development, obese, no deformities ENT: Normocephalic, normal hearing, moist mucosa CV: Pulses:Radial= 2+ and symmetric, capillary refill < 2 secs, no peripheral edema/v (more content not included)... Normal [facility] PERNELL RODRIGUEZ ([id number]) 1960 F Date Time Provider Department 03/27/25 [facility] During your visit today, we recorded the following information about you: Erwin Harvey RN 03/27/2025 2:22 PM Signed Pt reports she picked up the letter in Medical Records and now the [facility] wants a letter from pcp stating all of patient's diagnoses and the names of all the doctors who treat her. Pt would like pcp office to fax this letter to [facility]. Pt will call back with fax number. Homer Bradford MD 03/28/2025 8:21 AM Signed See if Pernell can give us the name and number of a cashier and salesperson at the [facility]. Then let them know know [...] and phone number phone number of a cashier and salesperson at the [email or web address] so that we may contact them. Pt looked for it and states she can't find it, but will call back with that information and give to nurse. Pt asking if pcp can send her an Rx for lidocaine patch to [facility]. Reports she needs an Rx in [...] tablet b (more content not included)... [facility] C[facility] Telephone (FAMPWS) PERNELL RODRIGUEZ ([id number]) 1960 F Date Time Provider Department 03/25/25 [facility] During your visit today, we recorded the following information about you: Mary Ann Rodriguez LPN 03/25/2025 9:28 AM Signed Patient calling asking for a letter from PCP saying he agrees would be good idea for her to go into Assisted Living per [facility]. Patient said located on [address] the [facility] area, did not know the name. Please call patient when ready for supervisor picking crew. Please advise Mary Ann Rodriguez LPN 03/25/2025 10:15 AM Signed Patient calling back said assisted living is called [facility]. Homer Bradford MD 03/25/2025 4:10 PM Signed Let patient know letter ready for supervisor picking crew. Jose Jarrell MA 03/25/2025 4:18 PM Signed Call to pt and notified her letter is ready for supervisor picking crew at [facility]. Pt will be her tomorrow to supervisor picking crew. Jose Jarrell MA Allergies As of Date: [...] accident) [Z86.*04/25/2015 (more content not included)... Normal [facility] CNPNon 03-19-2025 CNPN Telephone (TAWANAWST) PERNELL RODRIGUEZ ([id number]) 1960 F Date Time Provider Department 03/19/25 ZOILA SAGE During your visit today, we recorded the following information about you: Zoila Sage, JUDIE 03/19/2025 9:59 AM Signed Sw received message from patient asking about name of worker from [employer] that was helping patient with housing assistance. Sw called patient back and left message with Elsie Green name and noted that she is the Senior Fishing Captain for [employer] Aaron also left number for [employer] Chaitanya ph. [phone]. Allergies As of Date: 03/19/2025 Noted Allergy [...] 04/25/2015 Major depressive disorder, recurrent episode, m*04/25/2015 [place] or callus [L84] 11/16/2015 Nodule of left lung [R91.1] 12/17/2015 Well adult exam [Z00.00] 10/27/2016 Colon cancer screening [Z12.11] 10/27/2016 Migraine without aura and without status m (more content not included)... Normal [facility] Laboratory - Chemistry and C hemistry - challengeOrdered By: Jennifer Alba on 03-11-2025 Bilirubin Ql (U) Negative [facility] Glucose Ql (U) Negative [facility] Ketones Ql (U) Negative [facility] pH (U) 6 [pH] [facility] Specific gravity (U) [Rel density] 1.015 [facility] Urobilinogen (U) [Mass/Vol] Negative [facility] Laboratory - Hematology and Cell countsOrdered By: Jennifer Alba on 03-11-2025 Hemoglobin Ql (U) Negative [facility] Laboratory - UrinalysisOrder ed By: Jennifer Alba on 03-11-2025 Nitrite Ql (U) Negative [facility] Protein Ql (U) Negative [facility] MR/BMS.BUSon 03-11-2025 MR/BMS.BUS Normal [facility] No Panel InformationOrdered By: Jennifer Alba on 03-11-2025 Urine Leukocytes Negatve [facility] Urine Non-Hemolyzed Blood Negative [facility] CNPNon 03-05-2025 CNPN Telephone (NICHOLAS) PERNELL RODRIGUEZ ([id number]) 1960 F Date Time Provider Department 03/05/25 ZOILA SAGE During your visit today, we recorded the following information about you: Zoila Sage MSW 03/05/2025 3:42 PM Signed Patient and Sw spoke regarding [employer] and patient is going to give them a call to see what type of housing resource help they may offer. Sw will check back in with patient tomorrow and see what [employer] had to say to patient. Zoila Sage MSW 03/06/2025 10:33 AM Signed Patient spoke with Sw and told her that she has not yet called [employer]. Patient states that she will call them now and see what type of help they can provide through Medicaid Waiver for housing support. Itzelsridharkyle Zoila, JUDIE 03/13/2025 10:01 AM Signed left patient message to return call to check in with patient regarding [...] edema [ (more content not included)... Normal [facility] CNPNon 03-04-2025 CNPN Telephone (NICHOLAS) PERNELL RODRIGUEZ ([id number]) 1960 F Date Time Provider Department 03/04/25 ZOILA SAGE During your visit today, we recorded the following information about you: Zoila Sage, JUDIE 03/04/2025 12:51 PM Signed Patient called Aaron and said that the lady she is currently living with wants her to move out this weekend. Aaron asked if patient and Jimy Zimmerman, had been working on housing with her and patient said that she tried to get to [employer] but couldn't find her walker. Patient asked if Aaron for have Elsie give her a call again. Aaron called and left Jimy Zimmerman a message asking that she call Aaron back to discuss. Zoila Sage, PUBLIC RELATIONS COUNSELOR 03/05/2025 12:00 PM Signed Sw spoke with Elsie, [employer]. Elsei reports that she will call patient this [...] Bipolar affe (more content not included)... Normal [facility] - Chemistry and C hemistry - challengeOrdered By: Jennifer Alba on 02-27-2025 Bilirubin Ql (U) Negative [facility] Glucose Ql (U) Negative [facility] Ketones Ql (U) Negative [facility] pH (U) 5 [pH] [facility] Specific gravity (U) [Rel density] 1.010 [facility] Urobilinogen (U) [Mass/Vol] 2 mg/dL [facility] Laboratory - Hematology and Cell countsOrdered By: Jennifer Alba on 02-27-2025 Hemoglobin Ql (U) Negative [facility] Laboratory - UrinalysisOrder ed By: Jennifer Alba on 02-27-2025 Nitrite Ql (U) Negative [facility] Protein Ql (U) Negative [facility] MR/BMS.CONCETTAon 02-27-2025 MR/BMS.CONCETTA Normal [facility] No Panel InformationOrdered By: Jennifer Alba on 02-27-2025 Urine Leukocytes Positive [facility] Urine Non-Hemolyzed Blood Negative [facility] Negative [facility] 2 mg/dL [facility] 1.010 [facility] 5 [facility] Positive [facility] CNOVon 02-21-2025 CN Office Visit (FAMPWS ) PERNELL RODRIGUEZ ([id number]) 1960 F Date Time Provider Department 02/21/25 1:00 PM [facility] During your visit today, we recorded the [...] She is under the care of a hazardous material specialist, who removed the scab, but she missed a recent appointment due to transportation issues. She also reports a history of a sore on the front of her leg, which was deemed perfect by her hazardous material specialist. She denies recent fevers or chills. [...] and has an upcoming appointment with her ship officer, Dr. Christopher, on the . She is also trying to get more exercise and uses a roller walker for mobility. She is actively seeking housing and is in contact with the [employer], although she reports difficulties with the new counseling case manager. She is currently staying with a [...] Chest pain 02/14/[address] Jacob in [facility]. Had a normal cardiac CTA in 2009 with no calcium. Chronic back pain greater than 3 months duration 04/02/2015 Chronic insomnia 03/12/2020 Ilya Calderón ([facility]) on melatonin. Chronic obstructive pulmonary disease (HCC) 04/25/2015 Chronic pain 01/14/2014 Constipation 02/12/2014 [place] or callus 11/16/2015 Current use of proton [...] Migraine wit (more content not included)... [facility] C[facility]N Telephone ([place]) PERNELL RODRIGUEZ ([id number]) 1960 F Date Time Provider Department 02/21/25 ZOILA SAGE During your visit today, we recorded the following information about you: Zoila Sage MSW 02/21/2025 4:32 PM Signed Patient is currently staying with a lady at [address] [facility]. Patient notes that she has stayed therelonger then she should. Patient looking for a 2 bedroom apt. Patient reports that she will not go back to [facility]. Patient reports that she checked with [employer], but they do not have an open bed. Patient reports that she also had to pay $10.00 for taxi cab to get to doctor appt today. Sw asked patient if she knew about [employer] transit and their new curb to curb service. Patient reports that she is not aware of the new transportation program. Sw asked patient if she would like Sw to reach out to Jimy Zimmerman, [employer] to help with housing and transportation needs. Patient notes that would be helpful. [facility] also has the housing and support services program that used to be at [address]. Zoila Sage, PUBLIC RELATIONS COUNSELOR 02/21/2025 4:32 PM Signed Aaron called and [...] 04/16/2014 Hyp (more content not included)... Normal [facility] Pulmonary Visit Reporton Pulmonary Visit Report Normal [facility] History AND Physic lesley 01-31-2025 Wound Ctr History & Physical Normal [facility] Bacteria Ur Culton Bacteria identified Cx Nom (U) ORGANISM ID: 1 50,000-<100,000 CFU/ml Normal urogenital maik Normal [facility] Comment on above: Performed By: #### 6 30-4 ####[facility] LABCLIA [id number] [address] [facility] CNOVon 01-25-2025 CNOV Office Visit (FAMPWS ) PERNELL RODRIGUEZ ([id number]) 1960 F Date Time Provider Department 01/25/25 11:40 AM MEAGAN YUSUF FAMPWS During your visit today, we recorded the following information about you: Temperature Pulse Respiration Blood pressure 98.2 degrees 85/minute 18/minute 110/70 Weight 112 kg Meagan Yusuf PA-C 01/25/2025 11:00 AM Signed Chief [...] Chest pain 02/14/[address] Jacob in [facility]. Had a normal cardiac CTA in 2009 with no calcium. Chronic back pain greater than 3 months duration 04/02/2015 Chronic insomnia 03/12/2020 Ilya Calderón ([facility]) on melatonin. Chronic obstructive pulmonary disease ([facility]) 04/25/2015 Chronic pain 01/14/2014 Constipation 02/12/2014 [place] or callus 11/16/2015 Current use of proton pump inhibitor 10/11/2017 CVA (cerebral infarction) 01/14/2014 Diabetic eye exam ([facility]) 01/14/[address] Sanchez last done 03/02/2019 Diabetic foot ([facility]) 01/14/[address] Martins Extrapyramidal [...] 04/16/2014 Major depressive disorder, recurrent episode, moderate ([facility]) 04/25/2015 On disability Migraine without [...] WNL 2D ECHO (EXEP) 01/14/2014 EF=65% Trival [place], TI, PI, LA enlarged. CARPAL TUNNEL Bilateral 08/28 and 09/25 COLONOSCOPY FLX DX W/COLLJ SPEC WHEN PFRMD 2011 [facility] children Colonoscopy, no polyps repeat 10 yrs CRYOCAUTERY [...] Disease No (more content not included)... Normal [facility] UA DIP, URINE (POC)on 2024 BILIRUBIN UA (POCT) Negative Negative [facility] CLARITY UA (POCT) [facility] COLOR UA (POCT) Yellow [facility] GLUCOSE UA (POCT) Negative Negative mg/dL [facility] Hemoglobin Ql (U) Trace-intact Abnormal Negative [facility] Interpretation and review of laboratory results Abnormal [facility] KETONE UA (POCT) Negative Negative mg/dL [facility] LEUKOCYTES UA (POCT) Negative Negative [facility] NITRITE UA (POCT) Negative Negative [facility] PH UA (POCT) 6 4.5 - 8.0 [facility] Protein Ql (U) Negative Negative mg/dL [facility] SPECIFIC GRAVITY UA (POCT) 1.02 1.005 - 1.030 [facility] UROBILINOGEN UA (POCT) 0.2 Yolanda l E.U./dL [facility] Location:[address], [place], [place], [address] [place] [address] POINT OF CARE [facility] Basic metabolic 2000 panelon 01-17-2025 Anion gap [Moles/Vol] 14 mmol/L Normal 8-15 [facility] Comment on above: Order Comment: Speci men Type: BLOOD SPECIMENOrdering Facility: [facility] Address: [address] [place] [address] Performed By: #### 2 4321-2 ####[facility] LABCLIA [id number] [place] [address] [place] Calcium [Mass/Vol] 9.8 mg/dL Normal 8.5-10.2 [facility] Comment on above: Order Comment: Speci men Type: BLOOD SPECIMENOrdering Facility: [facility] Address: [address] [place] [address] Performed By: #### 2 4321-2 ####[facility] LABCLIA [id number] [place] [id number] [place] Chloride [Moles/Vol] 100 mmol/L Normal 98-107 [facility] Comment on above: Order Comment: Speci men Type: BLOOD SPECIMENOrdering Facility: [facility] Address: [address] [place] [address] Performed By: #### 2 4321-2 ####[facility] LABIA [id number] [place] [address] [place] CO2 [Moles/Vol] 26 mmol/L Normal 22-30 [facility] Comment on above: Order Comment: Speci men Type: BLOOD SPECIMENOrdering Facility: [facility] Address: [address] [place] [address] Performed By: #### 2 4321-2 ####[facility] LABCLIA [id number] [place] [address] [place] Creatinine [Mass/Vol] 1.54 mg/dL High 0.58-0.96 [facility] Comment on above: Order Comment: Speci men Type: BLOOD SPECIMENOrdering Facility: [facility] Address: [address] [place] [address] Performed By: #### 2 4321-2 ####[facility] LABIA [id number] [address] OF [place] Creatinine and Glomerular filtration rate.predicted panel (S/P/Bld) 38 mL/min/1.73m??? Low >=60 [facility] Comment on above: Order Comment: Speci men Type: BLOOD SPECIMENOrdering Facility: [facility] Address: [address] [place] [address] Result Comment: Maurilio mated Glomerular Filtration Rate [...] accurately reflect actual GFR. Performed By: #### 2 4321-2 ####[facility] LABCLIA [id number] [address] [address] [place] Glucose [Mass/Vol] 75 mg/dL Normal 74-99 [facility] Comment on above: Order Comment: Speci men Type: BLOOD SPECIMENOrdering Facility: [facility] Address: [address] [place] [address] Result Comment: The [place] [employer] (ADA) provides guidance for cutoff [...] Standards of Medical Care in Diabetes 2016, [place] [employer]. Diabetes Care. 2016.39(Suppl 1). Performed By: #### 2 4321-2 ####[facility] LABCLIA [id number] [address] [address] [place] Potassium [Moles/Vol] 3.9 mmol/L Normal 3.7-5.1 [facility] Comment on above: Order Comment: Speci men Type: BLOOD SPECIMENOrdering Facility: [facility] Address: [address] [place] [id number] Performed By: #### 2 4321-2 ####[facility] LABCLIA [id number] [facility] [address] [address] [place] Sodium [Moles/Vol] 140 mmol/L Normal 136-144 [facility] Comment on above: Order Comment: Speci men Type: BLOOD SPECIMENOrdering Facility: [facility] Address: [address] [place] [address] Performed By: #### 2 4321-2 ####[facility] LABCLIA [id number] [address] STATES OF [place] Urea nitrogen [Mass/Vol] 17 mg/dL Normal 7-21 [facility] Comment on above: Order Comment: Speci men Type: BLOOD SPECIMENOrdering Facility: [facility] Address: [address] [place] [address] Performed By: #### 2 4321-2 ####[facility] LABCLIA [id number] [place] [address] [place] CBC W Auto Differential pane l (Bld)on 01-17-2025 Basophils (Bld) [#/Vol] 0.05 10*3/uL [facility] Basophils/100 WBC (Bld) 0.5 % [facility] Differential cell count method Nom (Bld) Auto [facility] Eosinophils (Bld) [#/Vol] 0.22 10*3/uL [facility] Eosinophils/100 WBC (Bld) 2.3 % [facility] Erythrocyte distribution width (RBC) [Ratio] 13.9 % 11.5 - 15.0 % [facility] Hematocrit (Bld) [Volume fraction] 45.2 % 36.0 - 46.0 % [facility] Hemoglobin (Bld) [Mass/Vol] 14.5 g/dL 11.5 - 15.5 g/dL [facility] Immature granulocytes (Bld) [#/Vol] 0.03 10*3/uL [facility] Immature granulocytes/100 WBC (Bld) 0.3 % [facility] Interpretation and review of laboratory results Abnormal [facility] Lymphocytes (Bld) [#/Vol] 2.28 10*3/uL [facility] Lymphocytes/100 WBC (Bld) 23.8 % [facility] MCH (RBC) [Entitic mass] 30.7 pg 26. 0 - 34.0 pg [facility] MCHC (RBC) [Mass/Vol] 32.1 g/dL 30.5 - 36.0 g/dL [facility] MCV (RBC) [Entitic vol] 95.6 fL 80.0 - 100.0 fL [facility] Monocytes (Bld) [#/Vol] 0.87 10*3/uL High NINF [facility] Monocytes/100 WBC (Bld) 9.1 % [facility] Neutrophils (Bld) [#/Vol] 6.11 10*3/uL [facility] Neutrophils/100 WBC (Bld) 64 % [facility] Nucleated RBC (Bld) [#/Vol] NINF [facility] Nucleated RBC/100 WBC (Bld) [Ratio] 0 % /100 WBC [facility] Platelet mean volume (Bld) [Entitic vol] 11.1 fL 9.0 - 12.7 fL [facility] Platelets (Bld) [#/Vol] 277 10*3/uL [facility] RBC (Bld) [#/Vol] 4.73 10*6/uL 3.90 - 5.2 0 m/uL [facility] WBC (Bld) [#/Vol] 9.56 10*3/uL [facility] Basophils (Bld) [#/Vol] 0.05 10*3/uL Normal <0.11 [facility] Comment on above: Order Comment: Speci men Type: BLOOD SPECIMENOrdering Facility: [facility] Address: [address] [place] [address] Performed By: #### 5 7021-8 ####[facility] LABIA [id number] [place] [address] [place] Basophils/100 WBC (Bld) 0.5 % Normal [facility] Comment on above: Order Comment: Speci men Type: BLOOD SPECIMENOrdering Facility: [facility] Address: [address] [place] [address] Performed By: #### 5 7021-8 ####[facility] LABIA [id number] [place] [address] [place] Differential cell count method Nom (Bld) Auto Normal [facility] Comment on above: Order Comment: Speci men Type: BLOOD SPECIMENOrdering Facility: [facility] Address: [address] [place] [address] Performed By: #### 5 7021-8 ####[facility] LABCLIA [id number] [address], [place] [address] [place] Eosinophils (Bld) [#/Vol] 0.22 10*3/uL Normal <0.46 [facility] Comment on above: Order Comment: Speci men Type: BLOOD SPECIMENOrdering Facility: [facility] Address: [address] [place] [address] Performed By: #### 5 7021-8 ####[facility] LABCLIA [id number] [address], [place] [address] [place] Eosinophils/100 WBC (Bld) 2.3 % Normal [facility] Comment on above: Order Comment: Speci men Type: BLOOD SPECIMENOrdering Facility: [facility] Address: [address] [place] [address] Performed By: #### 5 7021-8 ####[facility] LABCLIA [id number] [address], [place] [address] [place] Erythrocyte distribution width (RBC) [Ratio] 13.9 % Normal 11.5-15.0 [facility] Comment on above: Order Comment: Speci men Type: BLOOD SPECIMENOrdering Facility: [facility] Address: [address] [place] [address] Performed By: #### 5 7021-8 ####[facility] LABCLIA [id number] [facility] [address], [facility] [place] Hematocrit (Bld) [Volume fraction] 45.2 % Normal 36.0-46.0 [facility] Comment on above: Order Comment: Speci men Type: BLOOD SPECIMENOrdering Facility: [facility] Address: [address] [place] [address] Performed By: #### 5 7021-8 ####[facility] LABCLIA [id number] [place] [address] [place] Hemoglobin (Bld) [Mass/Vol] 14.5 g/dL Normal 11.5-15.5 [facility] Comment on above: Order Comment: Speci men Type: BLOOD SPECIMENOrdering Facility: [facility] Address: [address] [place] [address] Performed By: #### 5 7021-8 ####[facility] LABCLIA [id number] [place] [address] [place] Immature granulocytes (Bld) [#/Vol] 0.03 10*3/uL Normal <0.10 [facility] Comment on above: Order Comment: Speci men Type: BLOOD SPECIMENOrdering Facility: [facility] Address: [address] [place] [address] Performed By: #### 5 7021-8 ####[facility] LABCLIA [id number] [place] [address] [place] Immature granulocytes/100 WBC (Bld) 0.3 % Normal [facility] Comment on above: Order Comment: Speci men Type: BLOOD SPECIMENOrdering Facility: [facility] Address: [address] [place] [address] Performed By: #### 5 7021-8 ####[facility] LABCLIA [id number] [place] [address] [place] Lymphocytes (Bld) [#/Vol] 2.28 10*3/uL Normal 1.00-4.00 [facility] Comment on above: Order Comment: Speci men Type: BLOOD SPECIMENOrdering Facility: [facility] Address: [address] [place] [address] Performed By: #### 5 7021-8 ####[facility] LABCLIA [id number] [place] [address] [place] Lymphocytes/100 WBC (Bld) 23.8 % Normal [facility] Comment on above: Order Comment: Speci men Type: BLOOD SPECIMENOrdering Facility: [facility] Address: [address] [place] [address] Performed By: #### 5 7021-8 ####[facility] LABCLIA [id number] [place] [address] [place] MCH (RBC) [Entitic mass] 30.7 pg Normal 26.0-34.0 [facility] Comment on above: Order Comment: Speci men Type: BLOOD SPECIMENOrdering Facility: [facility] Address: [address] [place] [address] Performed By: #### 5 7021-8 ####[facility] LABCLIA [id number] [place] [address] [place] MCHC (RBC) [Mass/Vol] 32.1 g/dL Normal 30.5-36.0 [facility] Comment on above: Order Comment: Speci men Type: BLOOD SPECIMENOrdering Facility: [facility] Address: [address] [place] [address] Performed By: #### 5 7021-8 ####[facility] LABCLIA [id number] [place] [address] [place] MCV (RBC) [Entitic vol] 95.6 fL Normal 80.0-100.0 C [facility] Comment on above: Order Comment: Speci men Type: BLOOD SPECIMENOrdering Facility: [facility] Address: [address] [place] [address] Performed By: #### 5 7021-8 ####[facility] LABCLIA [id number] [place] [address] [place] Monocytes (Bld) [#/Vol] 0.87 10*3/uL High <0.87 [facility] Comment on above: Order Comment: Speci men Type: BLOOD SPECIMENOrdering Facility: [facility] Address: [address] [place] [address] Performed By: #### 5 7021-8 ####[facility] LABCLIA [id number] [place] [address] [place] Monocytes/100 WBC (Bld) 9.1 % Normal [facility] Comment on above: Order Comment: Speci men Type: BLOOD SPECIMENOrdering Facility: [facility] Address: [address] [place] [address] Performed By: #### 5 7021-8 ####[facility] LABCLIA [id number] [place] [address] [place] Neutrophils (Bld) [#/Vol] 6.11 10*3/uL Normal 1.45-7.50 [facility] Comment on above: Order Comment: Speci men Type: BLOOD SPECIMENOrdering Facility: [facility] Address: [address] [place] [address] Performed By: #### 5 7021-8 ####[facility] LABCLIA [id number] [place] [address] [place] Neutrophils/100 WBC (Bld) 64.0 % Normal [facility] Comment on above: Order Comment: Speci men Type: BLOOD SPECIMENOrdering Facility: [facility] Address: [address] [place] [address] Performed By: #### 5 7021-8 ####[facility] LABCLIA [id number] [place] [address] [place] Nucleated RBC (Bld) [#/Vol] 10*3/uL Normal <0.01 [facility] Comment on above: Order Comment: Speci men Type: BLOOD SPECIMENOrdering Facility: [facility] Address: [address] [place] [address] Performed By: #### 5 7021-8 ####[facility] LABCLIA [id number] [place] [address] [place] Nucleated RBC/100 WBC (Bld) [Ratio] 0.0 /100 WBC Normal [facility] Comment on above: Order Comment: Speci men Type: BLOOD SPECIMENOrdering Facility: [facility] Address: [address] [place] [address] Performed By: #### 5 7021-8 ####[facility] LABCLIA [id number] [address] [address] [place] Platelet mean volume (Bld) [Entitic vol] 11.1 fL Normal 9.0-12.7 [facility] Comment on above: Order Comment: Speci men Type: BLOOD SPECIMENOrdering Facility: [facility] Address: [address] [place] [address] Performed By: #### 5 7021-8 ####[facility] LABIA [id number] [place] [address] [place] Platelets (Bld) [#/Vol] 277 10*3/uL Normal 150-400 [facility] Comment on above: Order Comment: Speci men Type: BLOOD SPECIMENOrdering Facility: [facility] Address: [address] [place] [address] Performed By: #### 5 7021-8 ####[facility] LABIA [id number] [place] [address] [place] RBC (Bld) [#/Vol] 4.73 10*6/uL Normal 3.90-5.20 [facility] Comment on above: Order Comment: Speci men Type: BLOOD SPECIMENOrdering Facility: [facility] Address: [address] [place] [address] Performed By: #### 5 7021-8 ####[facility] LABIA [id number] [address] [address] [place] WBC (Bld) [#/Vol] 9.56 10*3/uL Normal 3.70-11.00 [facility] Comment on above: Order Comment: Speci men Type: BLOOD SPECIMENOrdering Facility: [facility] Address: [address] [place] [address] Performed By: #### 5 7021-8 ####[facility] DAVID [id number] [address] [id number] [facility] CNOVon 01-17-2025 CNOV Office Visit (FAMPWS ) PERNELL RODRIGUEZ ([id number]) 1960 F Date Time Provider Department 01/17/25 11:40 AM MEAGAN YUSUFWS During your visit today, we recorded the following information about you: Temperature Pulse Respiration Blood pressure 99.5 degrees 79/minute 18/minute 120/68 Weight 111.6 kg Meagan Yusuf PA-C 01/17/2025 12:02 PM Signed Chief Complaint Patient presents with: Hospital F/U [facility] Pernell Rodriguez is a 64 year old [...] with a friend but will move to [employer] around the or . - Lost manager case through [facility]; no current manager case. 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 Past medical history, appointments, medications, allergies reviewed. Previous Medical History PAST MEDICAL HISTORY Diagnosis Date ASHD (arteriosclerotic heart disease) 10/25/[address] Goins Bilateral leg edema 04/25/2015 Bipolar affective disorder (HCC) 04/25/[address] Colindres Chest pain 02/14/[address] Jacob in [facility]. Had a normal cardiac CTA in 2009 with no calcium. Chronic back pain greater than 3 months duration 04/02/2015 Chronic insomnia 03/12/2020 Ilya Calderón ([facility]) on melatonin. Chronic obstructive pulmonary disease ([facility]) 04/25/2015 Chronic pain 01/14/2014 Constipation 02/12/2014 [place] or callus 11/16/2015 Current use of proton pump inhibitor 10/11/2017 CVA (cerebral infarction) 01/14/2014 Diabetic eye exam ([facility]) 01/14/[address] Sanchez last done 03/02/2019 Diabetic foot ([facility]) 01/14/[address] Martins Extrapyramidal [...] 04/16/2014 Major depressive disorder, recurrent episode, moderate ([facility]) 04/25/2015 On disability Migraine without aura and without status migrainosus, not intractable 04/28/[address] Calderón Mixed hyperlipidemia 01/14/2014 Mixed incontinence urge and stress (male)(female) 07/25/2018 Morbid obesity due to excess calories ([facility]) 10/27/2016 Muscle weakness (generalized) 07/25/2018 [...] 1.5 PPD Stage 3b chronic kidney disease ([facility]) 11/24/2020 Tardive dyskinesia 03/12/2020 Ilya Calderón ([facility]) Type 2 diabetes mellitus with stage 3b chronic kidney disease ([facility]) 04/25/2015 Type 2 diabetes mellitus without complication ([facility]) 04/25/2015 Urinary incontinence 07/08/2017 Well adult exam 10/27/2016 last done: 06/09/2022 Previous Surgical History PAST SURGICAL HISTORY Procedure Laterality Date *STRESS TEST PC (more content not included)... Normal [facility] Culture, Blood (WB)on 2024 CUB Blood cultures x2, from two different sites No growth in 5 days. Normal [facility] Comment on above: Performed By: #### M 200.1000 ####[facility] [address] [place], [place], [address] Bedside Glucoseon 01-11-2025 FINGERSTICK GLU 121 mg/dL High 74-106 [facility] Comment on above: Result Comment: BJ GEMENT OF PATIENT CARE PER NURSING PROTOCOL Performed By: #### L 501.080 ####[facility] [address] [place], [address] FINGERSTICK GLU 88 mg/dL Normal 74-106 [facility] Comment on above: Result Comment: BJ GEMENT OF PATIENT CARE PER NURSING PROTOCOL Performed By: #### L 501.080 ####[facility] [address] [place], [address] [facility] 01-11-2025 [facility] PERNELL RODRIGUEZ ([id number]) 1960 F IPA Date Time Provider Department 01/11/25 [facility] During your visit today, we recorded the following information about you: Jose Jarrell MA 01/11/2025 3:49 PM Signed Type of form: Medical Necessity - received from Home Care Delivery Form received via fax When form is completed, Fax form to [phone] Form has been forwarded to Physician Desk: [...] - Fully Assessed Reason for Visit: Forms [333] Cmt: CMN Prescriptions as of 01/11/2025 - [...] Chronic ob (more content not included)... Normal [facility] Discharge Instructionon 12-17 Discharge Instruction Normal [facility] Gl[facility] at [facility] deOrdered By: Peter Herbert on 01-11-2025 Glucose [Mass/Vol] 121 mg/dL High 74-106 [facility] Comment on above: MANAGEMENT OF PATIEN T CARE PER NURSING PROTOCOL Anion gap in Serum or Plasma Ordered By: Luis Antonio Navarro on 01-10-2025 Anion gap [Moles/Vol] 12 mmol/L 5- [facility] BUN/creatinine ratioOrdered By: Luis Antonio Navarro on 01-10-2025 Urea nitrogen/Creatinine [Mass ratio] 9.7 mg/mg Low - [facility] Basic Metabolic Profile (BMP )on 01-10-2025 BUN/CRE 9.7 RATIO Low - [facility] Comment on above: Performed By: #### L 500.2500, L100.0500 ####[facility] [address] [place], [address] Calcium [Mass/Vol] 8.9 mg/dL Normal 7.6-11.0 [facility] Comment on above: Performed By: #### L 500.2500, L100.0500 ####[facility] [address] [place], [address] Chloride [Moles/Vol] 112 mmol/L High 98-108 [facility] Comment on above: Performed By: #### L 500.2500, L100.0500 ####[facility] [address] [place], [address] CO2 [Moles/Vol] 19.9 mmol/L Low 21.0-32.0 [facility] Comment on above: Performed By: #### L 500.2500, L100.0500 ####[facility] [address] [place], [address] Creatinine [Mass/Vol] 1.25 mg/dL High 0.70-1.20 [facility] Comment on above: Performed By: #### L 500.2500, L100.0500 ####[facility] [address] [place], [address] ECRCL 55.62 ml/min Normal 50-250 [facility] Comment on above: Performed By: #### L 500.2500, L100.0500 ####[facility] [address] [place], [address] GAP 12 Normal 5-15 [facility] Comment on above: Performed By: #### L 500.2500, L100.0500 ####[facility] [address] [place], [address] GFR/1.73 sq M.predicted among non-blacks MDRD (S/P/Bld) [Vol rate/Area] 49 mL/min/{1.73_m2} Low >60 [facility] Comment on above: Result Comment: mL/m in/1.73m2 CKD-EPI Creatinine Equation (2020) Performed By: #### L 500.2500, L100.0500 ####[facility] [address] [place], [address] Glucose [Mass/Vol] 92 mg/dL Normal 70-99 [facility] Comment on above: Performed By: #### L 500.2500, L100.0500 ####[facility] [address] [place], [address] Potassium [Moles/Vol] 3.5 mmol/L Normal 3.3-5.1 [facility] Comment on above: Performed By: #### L 500.2500, L100.0500 ####[facility] [address] [place], [address] Sodium [Moles/Vol] 144 mmol/L Normal 133-145 [facility] Comment on above: Performed By: #### L 500.2500, L100.0500 ####[facility] [address] [place], [address] Urea nitrogen [Mass/Vol] 12 mg/dL Normal 4-19 [facility] Comment on above: Performed By: #### L 500.2500, L100.0500 ####[facility] [address] [place], [address] Bedside Glucoseon 01-10-2025 FINGERSTICK GLU 107 mg/dL High 74-106 [facility] Comment on above: Result Comment: BJ GEMENT OF PATIENT CARE PER NURSING PROTOCOL Performed By: #### L 501.080 ####[facility] [address] [place], [address] FINGERSTICK GLU 96 mg/dL Normal 74-106 [facility] Comment on above: Result Comment: BJ GEMENT OF PATIENT CARE PER NURSING PROTOCOL Performed By: #### L 501.080 ####[facility] [address] [place], [address] FINGERSTICK GLU 108 mg/dL High 74-106 [facility] Comment on above: Result Comment: BJ GEMENT OF PATIENT CARE PER NURSING PROTOCOL Performed By: #### L 501.080 ####[facility] [address] [place], [address] FINGERSTICK GLU 90 mg/dL Normal 74-106 [facility] Comment on above: Result Comment: BJ GEMENT OF PATIENT CARE PER NURSING PROTOCOL Performed By: #### L 501.080 ####[facility] [address] [place], [address] CBC-Complete Blood Cnt No Di ffon 01-10-2025 Erythrocyte distribution width (RBC) [Ratio] 13.7 % Normal 11.6-14.6 [facility] Comment on above: Performed By: #### L 500.2500, L100.0500 ####[facility] [address] [place], [address] Hematocrit (Bld) [Volume fraction] 37.8 % Normal 37-47 [facility] Comment on above: Performed By: #### L 500.2500, L100.0500 ####[facility] [address] [place], [address] Hemoglobin (Bld) [Mass/Vol] 12.3 g/dL Normal 12.0-15.0 [facility] Comment on above: Performed By: #### L 500.2500, L100.0500 ####[facility] [address] [place], [address] MCH (RBC) [Entitic mass] 30.9 pg Normal 27.0-32.0 [facility] Comment on above: Performed By: #### L 500.2500, L100.0500 ####[facility] [address] [place], [address] MCHC (RBC) [Mass/Vol] 32.5 g/dL Normal 32-36 [facility] Comment on above: Performed By: #### L 500.2500, L100.0500 ####[facility] [address] [place], [address] MCV (RBC) [Entitic vol] 95.0 fL Normal 81-99 [facility] Comment on above: Performed By: #### L 500.2500, L100.0500 ####[facility] [address] [place], [address] Platelet mean volume (Bld) [Entitic vol] 10.4 fL Normal 6.2-12.0 [facility] Comment on above: Performed By: #### L 500.2500, L100.0500 ####[facility] [address] [place], [address] Platelets (Bld) [#/Vol] 216 10*3/uL Normal 150-450 [facility] Comment on above: Performed By: #### L 500.2500, L100.0500 ####[facility] [address] [place], [address] RBC (Bld) [#/Vol] 3.98 10*6/uL Low 4.2-5.4 [facility] Comment on above: Performed By: #### L 500.2500, L100.0500 ####[facility] [address] [place], [address] RDW SD 48.2 fl High 35.1-43.9 [facility] Comment on above: Performed By: #### L 500.2500, L100.0500 ####[facility] [address] [place], [address] WBC (Bld) [#/Vol] 9.3 10*3/uL Normal 4.4-11.0 [facility] Comment on above: Performed By: #### L 500.2500, L100.0500 ####[facility] [address] [place], [address] Carbon dioxide, total [Moles /volume] in Central venous bloodOrdered By: Luis Antonio Navarro on 01-10-2025 CO2 [Moles/Vol] 19.9 mmol/L Low 21.0-32.0 [facility] Chloride assayOrdered By: Garry Navarro on 01-10-2025 Chloride [Moles/Vol] 112 mmol/L High 98-108 [facility] Erythrocyte distribution wid th ratioOrdered By: Luis Antonio Navarro on 01-10-2025 Erythrocyte distribution width (RBC) [Ratio] 13.7 % 11.6-14.6 [facility] Erythrocyte distribution wid th standard deviationOrdered By: Luis Antonio Navarro on 01-10-2025 Erythrocyte distribution width (RBC) [Ratio] 48.2 fl High 35.1-43.9 [facility] Glomerular filtration rate ( GFR) estimation/1.73 sq m using serum, plasma, or whole bOrdered By: Luis Antonio Navarro on 01-10-2025 GFR/1.73 sq M.predicted among non-blacks MDRD (S/P/Bld) [Vol rate/Area] 49 mL/min/{1.73_m2} Low >60 [facility] Comment on above: mL/min/1.73m2 CKD-EP I Creatinine Equation (2020) Hematocrit Auto (Bld) [Volum e fraction]Ordered By: Luis Antonio Navarro on 01-10-2025 Hematocrit (Bld) [Volume fraction] 37.8 % 37-47 [facility] Hemoglobin measurementOrdere d By: Luis Antonio Navarro on 01-10-2025 Hemoglobin (Bld) [Mass/Vol] 12.3 g/dL 12.0-15.0 [facility] MCV (mean corpuscular volume ) determinationOrdered By: Luis Antonio Navarro on 01-10-2025 MCV (RBC) [Entitic vol] 95.0 fL 81-[address] [facility] Mean corpuscular hemoglobin (MCH) determinationOrdered By: Luis Antonio Navarro on 01-10-2025 MCH (RBC) [Entitic mass] 30.9 pg 27.0-32.0 [facility] Mean corpuscular hemoglobin concentration (MCHC) determinationOrdered By: Luis Antonio Navarro on 01-10-2025 MCHC (RBC) [Mass/Vol] 32.5 g/dL 32-36 [facility] Mean platelet volume determi nationOrdered By: Luis Antonio Navarro on 01-10-2025 Platelet mean volume (Bld) [Entitic vol] 10.4 fL 6.2-12.0 [facility] Platelet countOrdered By: Garry Navarro on 01-10-2025 Platelets (Bld) [#/Vol] 216 10*3/uL 150-450 [facility] Potassium measurement (mass/ volume)Ordered By: Luis Antonio Navarro on 01-10-2025 Potassium (Unsp spec) [Mass/Vol] 3.5 mmol/L 3.3-5.1 [facility] RBC Auto (Bld) [#/Vol]Ordere d By: Luis Antonio Navarro on 01-10-2025 RBC (Bld) [#/Vol] 3.98 10*6/uL Low 4.2-5.4 [facility] Serum creatinine measurement (mass/volume)Ordered By: Luis Antonio Navarro on 01-10-2025 Creatinine [Mass/Vol] 1.25 mg/dL High 0.70-1.20 [facility] Serum glucose measurement (m ass/volume)Ordered By: Luis Antonio Navarro on 01-10-2025 Glucose [Mass/Vol] 92 mg/dL 70-99 [facility] Serum or plasma calcium dane urement (mass/volume)Ordered By: Luis Antonio Navarro on 01-10-2025 Calcium [Mass/Vol] 8.9 mg/dL 7.6-11.0 [facility] Serum or plasma urea nitroge n measurement (mass/volume)Ordered By: Luis Antonio Navarro on 01-10-2025 Urea nitrogen [Mass/Vol] 12 mg/dL 4-19 [facility] Sodium levelOrdered By: Randy Navarro on 01-10-2025 Sodium [Moles/Vol] 144 mmol/L 133-145 [facility] Venous Duplex US - Bruce Extre mon 01-10-2025 Venous Duplex US - Bruce Extrem Normal [facility] Venous duplex ultrasound rep ortOrdered By: Wilfredo Shelby on 01-10-2025 US Vein [facility] Work Phone: White blood cell (WBC) count Ordered By: Luis Antonio Navarro on 01-10-2025 WBC (Bld) [#/Vol] 9.3 10*3/uL 4.4-11.0 [facility] Absolute lymphocyte countOrd ered By: Lauren Dane on 01-09-2025 Lymphocytes Auto (Unsp spec) [#/Vol] 2.69 10*3/uL 0.83-4.51 [facility] Absolute neutrophil countOrd ered By: on 01-09-2025 Neutrophils (Bld) [#/Vol] 6.7 10*3/uL 2.0-7.7 [facility] Automated lymphocyte count a s percentage of total leukocytesOrdered By: White on 01-09-2025 Lymphocytes/100 WBC Auto (Unsp spec) 25.4 % 19-41 [facility] Basophil percentageOrdered B y: Lauren Vela on 01-09-2025 Basophils/100 WBC (Bld) 0.2 % 0-[address] [facility] Bedside Glucoseon 01-09-2025 FINGERSTICK GLU 96 mg/dL Normal 74-106 [facility] Comment on above: Result Comment: BJ GEMENT OF PATIENT CARE PER NURSING PROTOCOL Performed By: #### L 501.080 ####[facility] [address] [place], [address] FINGERSTICK GLU 115 mg/dL High 74-106 [facility] Comment on above: Result Comment: BJ GEMENT OF PATIENT CARE PER NURSING PROTOCOL Performed By: #### L 501.080 ####[facility] [address] [place], [address] FINGERSTICK GLU 96 mg/dL Normal 74-106 [facility] Comment on above: Result Comment: BJ GEMENT OF PATIENT CARE PER NURSING PROTOCOL Performed By: #### L 501.080 ####[facility] [address] [place], [address] FINGERSTICK GLU 110 mg/dL High 74-106 [facility] Comment on above: Result Comment: BJ GEMENT OF PATIENT CARE PER NURSING PROTOCOL Performed By: #### L 501.080 ####[facility] [address] [place], [address] FINGERSTICK GLU 108 mg/dL High 74-106 [facility] Comment on above: Result Comment: BJ GEMENT OF PATIENT CARE PER NURSING PROTOCOL Performed By: #### L 501.080 ####[facility] [address] [place], [address] Bilirubin, totalOrdered By: Lauren Vela on 01-09-2025 Bilirubin [Mass/Vol] 0.41 mg/dL 0.00-1.30 [facility] CBC W/Diff, Automatedon 12-17 Absolute Lymph 2.69 X10 3/uL Normal 0.83-4.51 [facility] Comment on above: Performed By: #### L 501.9985, L500.4050, L100.0100 ####[facility] [address] [place], [address] Absolute Neut 6.7 X10 3/uL Normal 2.0-7.7 [facility] Comment on above: Performed By: #### L 501.9985, L500.4050, L100.0100 ####[facility] [address] [place], [address] Basophils/100 WBC (Bld) 0.2 % Normal 0-[address] [facility] Comment on above: Performed By: #### L 501.9985, L500.4050, L100.0100 ####[facility] [address] [place], [address] Eosinophils/100 WBC (Bld) 1.2 % Normal 0-5 [facility] Comment on above: Performed By: #### L 501.9985, L500.4050, L100.0100 ####[facility] [address] [place], [address] Erythrocyte distribution width (RBC) [Ratio] 13.9 % Normal 11.6-14.6 [facility] Comment on above: Performed By: #### L 501.9985, L500.4050, L100.0100 ####[facility] [address] [place], [address] Hematocrit (Bld) [Volume fraction] 39.9 % Normal 37-47 [facility] Comment on above: Performed By: #### L 501.9985, L500.4050, L100.0100 ####[facility] [address] [place], [address] Hemoglobin (Bld) [Mass/Vol] 12.9 g/dL Normal 12.0-15.0 [facility] Comment on above: Performed By: #### L 501.9985, L500.4050, L100.0100 ####[facility] [address] [place], [address] IG% 0.200 Normal 0.0-0.9 [facility] Comment on above: Result Comment: IG% - Immature Granulocytes (promyelocytes, myelocytes andmetamyelocytes) > 1% indicates that a LEFT SHIFT is Present. Performed By: #### L 501.9985, L500.4050, L100.0100 ####[facility] [address] [place], [address] Lymphocytes/100 WBC (Bld) 25.4 % Normal 19-41 [facility] Comment on above: Performed By: #### L 501.9985, L500.4050, L100.0100 ####[facility] [address] [place], [address] MCH (RBC) [Entitic mass] 30.6 pg Normal 27.0-32.0 [facility] Comment on above: Performed By: #### L 501.9985, L500.4050, L100.0100 ####[facility] [address] [place], [address] MCHC (RBC) [Mass/Vol] 32.3 g/dL Normal 32-36 [facility] Comment on above: Performed By: #### L 501.9985, L500.4050, L100.0100 ####[facility] [address] [place], [address] MCV (RBC) [Entitic vol] 94.8 fL Normal 81-[address] [facility] Comment on above: Performed By: #### L 501.9985, L500.4050, L100.0100 ####[facility] [address] [place], [address] Monocytes/100 WBC (Bld) 9.5 % Normal 0-[address] [facility] Comment on above: Performed By: #### L 501.9985, L500.4050, L100.0100 ####[facility] [address] [place], [address] Neutrophils/100 WBC (Bld) 63.5 % Normal 47-70 [facility] Comment on above: Performed By: #### L 501.9985, L500.4050, L100.0100 ####[facility] [address] [place], [address] Nucleated RBC (Bld) [#/Vol] 0 10*3/uL Normal 0-5 [facility] Comment on above: Performed By: #### L 501.9985, L500.4050, L100.0100 ####[facility] [address] [place], [address] Platelet mean volume (Bld) [Entitic vol] 10.3 fL Normal 6.2-12.0 [facility] Comment on above: Performed By: #### L 501.9985, L500.4050, L100.0100 ####[facility] [address] [place], [address] Platelets (Bld) [#/Vol] 223 10*3/uL Normal 150-450 [facility] Comment on above: Performed By: #### L 501.9985, L500.4050, L100.0100 ####[facility] [address] [place], [address] RBC (Bld) [#/Vol] 4.21 10*6/uL Normal 4.2-5.4 [facility] Comment on above: Performed By: #### L 501.9985, L500.4050, L100.0100 ####[facility] [address] [place], [address] RDW SD 48.2 fl High 35.1-43.9 [facility] Comment on above: Performed By: #### L 501.9985, L500.4050, L100.0100 ####[facility] [address] [place], [address] WBC (Bld) [#/Vol] 10.6 10*3/uL Normal 4.4-11.0 [facility] Comment on above: Performed By: #### L 501.9985, L500.4050, L100.0100 ####[facility] [address] [place], [address] Comprehensive Metabolic Prof ilon 01-09-2025 Albumin [Mass/Vol] 3.2 g/dL Low 3.4-4.8 [facility] Comment on above: Performed By: #### L 501.9985, L500.4050, L100.0100 ####[facility] [address] [place], [address] Albumin/Globulin [Mass ratio] 1.3 {ratio} Normal 0.9-2.4 [facility] Comment on above: Performed By: #### L 501.9985, L500.4050, L100.0100 ####[facility] [address] [place], [address] ALK PHOS 69 U/L Normal 35-104 [facility] Comment on above: Performed By: #### L 501.9985, L500.4050, L100.0100 ####[facility] [address] [place], [address] ALT [Catalytic activity/Vol] 9 U/L Normal <=34 [facility] Comment on above: Performed By: #### L 501.9985, L500.4050, L100.0100 ####[facility] [address] [place], [address] AST [Catalytic activity/Vol] 32 U/L Normal <=31 [facility] Comment on above: Performed By: #### L 501.9985, L500.4050, L100.0100 ####[facility] [address] [place], [address] Bilirubin [Mass/Vol] 0.41 mg/dL Normal 0.00-1.30 [facility] Comment on above: Performed By: #### L 501.9985, L500.4050, L100.0100 ####[facility] [address] [place], [address] BUN/CRE 9.3 RATIO Low 10-20 [facility] Comment on above: Performed By: #### L 501.9985, L500.4050, L100.0100 ####[facility] [address] [place], [address] Calcium [Mass/Vol] 8.2 mg/dL Normal 7.6-11.0 [facility] Comment on above: Performed By: #### L 501.9985, L500.4050, L100.0100 ####[facility] [address] [place], [address] Chloride [Moles/Vol] 114 mmol/L High 98-108 [facility] Comment on above: Performed By: #### L 501.9985, L500.4050, L100.0100 ####[facility] [address] [place], [address] CO2 [Moles/Vol] 19.4 mmol/L Low 21.0-32.0 [facility] Comment on above: Performed By: #### L 501.9985, L500.4050, L100.0100 ####[facility] [address] [place], [address] Creatinine [Mass/Vol] 1.36 mg/dL High 0.70-1.20 [facility] Comment on above: Performed By: #### L 501.9985, L500.4050, L100.0100 ####[facility] [address] [place], [address] ECRCL 51.12 ml/min Normal 50-250 [facility] Comment on above: Performed By: #### L 501.9985, L500.4050, L100.0100 ####[facility] [address] [place], [address] GAP 13 Normal 5-15 [facility] Comment on above: Performed By: #### L 501.9985, L500.4050, L100.0100 ####[facility] [address] [place], [address] GFR/1.73 sq M.predicted among non-blacks MDRD (S/P/Bld) [Vol rate/Area] 44 mL/min/{1.73_m2} Low >60 [facility] Comment on above: Result Comment: mL/m in/1.73m2 CKD-EPI Creatinine Equation (2020) Performed By: #### L 501.9985, L500.4050, L100.0100 ####[facility] [address] [place], [address] Globulin (S) [Mass/Vol] 2.5 g/dL Normal 2.2-4.2 [facility] Comment on above: Performed By: #### L 501.9985, L500.4050, L100.0100 ####[facility] [address] [place], [address] Glucose [Mass/Vol] 101 mg/dL High 70-99 [facility] Comment on above: Performed By: #### L 501.9985, L500.4050, L100.0100 ####[facility] [address] [place], [address] Potassium [Moles/Vol] 3.6 mmol/L Normal 3.3-5.1 [facility] Comment on above: Performed By: #### L 501.9985, L500.4050, L100.0100 ####[facility] [address] [place], [address] Sodium [Moles/Vol] 146 mmol/L High 133-145 [facility] Comment on above: Performed By: #### L 501.9985, L500.4050, L100.0100 ####[facility] [address] [place], [address] T PROT 5.8 g/dL Low 5.9-8.4 [facility] Comment on above: Performed By: #### L 501.9985, L500.4050, L100.0100 ####[facility] [address] [place], [address] Urea nitrogen [Mass/Vol] 13 mg/dL Normal 4-19 [facility] Comment on above: Performed By: #### L 501.9985, L500.4050, L100.0100 ####[facility] [address] 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 Performed By: #### L 501.9985, L500.4050, L100.0100 ####[facility] [address] [place], [address] Hemoglobin A1c percentageOrd ered By: Lauren Vela on 01-09-2025 HbA1c (Bld) [Mass fraction] 6.0 % High <5.7 [facility] Comment on above: Normal < 5.7 % Predi abetic 5.7 - 6.4 % Diabetic >or= 6.5 % Please note range changes. Immature granulocytes/100 WB C Auto (Bld)Ordered By: Lauren Dane on 01-09-2025 Immature granulocytes/100 WBC (Bld) 0.200 % 0.0-0.9 [facility] Comment on above: IG% - Immature Granu locytes (promyelocytes, myelocytes and metamyelocytes) > 1% indicates that a LEFT SHIFT is Present. Kidney and Bladderon 025 Kidney and Bladder Normal [facility] Laboratory - Chemistry and C hemistry - challengeOrdered By: Lauren Vela on 01-09-2025 AST [Catalytic activity/Vol] 32 U/L <32 [facility] Monocyte percentageOrdered B y: Dane on 01-09-2025 Monocytes/100 WBC (Bld) 9.5 % 0-[address] [facility] Neutrophil percentageOrdered By: on 01-09-2025 Neutrophils/100 WBC (Bld) 63.5 % 47-70 [facility] No Panel InformationOrdered By: Lauren Dane on 01-09-2025 32 U/L <32 [facility] Nucleated red blood cell per centageOrdered By: Lauren Dane on 01-09-2025 Nucleated RBC/100 WBC (Bld) [Ratio] 0 % 0-5 [facility] Serum globulin measurementOr dered By: Lauren Dane on 01-09-2025 Globulin (S) [Mass/Vol] 2.5 g/dL 2.2-4.[address] [facility] Serum or plasma alanine obregon otransferase (ALT) measurementOrdered By: Dane on 01-09-2025 ALT [Catalytic activity/Vol] 9 U/L <35 [facility] Serum or plasma albumin dane urement (mass/volume)Ordered By: Lauren Vela on 01-09-2025 Albumin [Mass/Vol] 3.2 g/dL Low 3.4-4.8 [facility] Serum or plasma albumin/glob ulin mass ratioOrdered By: [facility] on 01-09-2025 Albumin/Globulin [Mass ratio] 1.3 {ratio} 0.9-2.4 [facility] Serum or plasma alkaline ruddy sphatase measurementOrdered By: [facility] on 01-09-2025 ALP [Catalytic activity/Vol] 69 U/L 35-104 [facility] Total proteinOrdered By: Aut n White on 01-09-2025 Protein [Mass/Vol] 5.8 g/dL Low 5.9-8.4 [facility] Urine Cultureon 01-09-2025 URC Culture exhibits no growth. Normal [facility] Comment on above: Performed By: #### M 100.2200 ####[facility] [address] [place], [place], [address] 12 Lead EKGon 01-08-2025 12 Lead EKG Normal [facility] Absolute lymphocyte countOrd ered By: Issa Chapin on 01-08-2025 Lymphocytes Auto (Unsp spec) [#/Vol] 1.55 10*3/uL 0.83-4.51 [facility] Activated partial thrombopla stin time (aPTT) in platelet poor plasma by coagulation aOrdered By: Issa Chapin on 01-08-2025 aPTT Coag (PPP) [Time] 27.1 s 24.1-36.2 [facility] Alcohol, Blood (Medical)-Ser [facility] 01-08-2025 SERUM ETOH < 10.1 Normal <=10.0 [facility] Comment on above: Result Comment: This test is for medical purposes only. The legaldefinition of intoxication varies according to local law. Performed By: #### L 505.5000, L501.9100, L300.3900, L300.4310, L500.4050, L100.0100, L503.6005, L501.2450 ####[facility] [address] [place], [place], [address] Amphetamine detection with 1 000 ng/mL as cutoffOrdered By: Issa Chapin on 01-08-2025 Amphetamines Screen method >1000 ng/mL Ql (U) Negative < 200 ng/mL [facility] Anion gap in Serum or Plasma Ordered By: Issa Chapin on 01-08-2025 Anion gap [Moles/Vol] 16 mmol/L High 5-15 [facility] Automated lymphocyte count a s percentage of total leukocytesOrdered By: Issa Chapin on 01-08-2025 Lymphocytes/100 WBC Auto (Unsp spec) 15.8 % Low 19-41 [facility] BUN/creatinine ratioOrdered By: Issa Chapin on 01-08-2025 Urea nitrogen/Creatinine [Mass ratio] 9.2 mg/mg Low 10-20 [facility] Basophil percentageOrdered B y: Issa Chapin on 01-08-2025 Basophils/100 WBC (Bld) 0.2 % 0-[address] [facility] Bilirubin Test strip Ql (U)O rdered By: Issa Chapin on 01-08-2025 Bilirubin Ql (U) 1 mg/dL High Negative [facility] Comment on above: COLOR OF URINE MAY A FFECT DIPSTICK RESULTS. Bilirubin, totalOrdered By: Issa Chapin on 01-08-2025 Bilirubin [Mass/Vol] 0.39 mg/dL 0.00-1.30 [facility] Blood Gases by KAISER HAYWARDon 025 Base excess Calc (Bld) [Moles/Vol] -3 mmol/L Low -2 to +2 [facility] Comment on above: Order Comment: Resul ts manually entered by Amber and verified by [facility]01/08/25 at 1747 Performed By: #### L 9000.0800 ####[facility] [address] [place], [place], [id number] Blood Gas Type ART Normal [facility] Comment on above: Order Comment: Resul ts manually entered by Amber and verified by [facility]01/08/25 at 1747 Performed By: #### L 9000.0800 ####[facility] [address] [place], [place], [id number] CO2 [Moles/Vol] 22 mmol/L Normal [facility] Comment on above: Order Comment: Resul ts manually entered by Amber and verified by [facility]01/08/25 at 1747 Performed By: #### L 9000.0800 ####[facility] [address] [place], [address] HCO3 (Bld) [Moles/Vol] 21.1 mmol/L Low 22-[address] [facility] Comment on above: Order Comment: Resul ts manually entered by Amber and verified by [facility]01/08/25 at 1747 Performed By: #### L 9000.0800 ####[facility] [address] [place], [address] LPM 3.0 Normal [facility] Comment on above: Order Comment: Resul ts manually entered by Amber and verified by [facility]01/08/25 at 1747 Performed By: #### L 9000.0800 ####[facility] [address] [place], [address] pCO2 29.6 mmHg Low 35-45 [facility] Comment on above: Order Comment: Resul ts manually entered by Amber and verified by [facility]01/08/25 at 1747 Performed By: #### L 9000.0800 ####[facility] [address] [place], [address] pH (Bld) 7.46 [pH] High 7.35-7.45 [facility] Comment on above: Order Comment: Resul ts manually entered by Amber and verified by [facility]01/08/25 at 1747 Performed By: #### L 9000.0800 ####[facility] [address] [place], [address] PO2 55 mmHG Low 75-100 [facility] Comment on above: Order Comment: Resul ts manually entered by Amber and verified by [facility]01/08/25 at 1747 Performed By: #### L 9000.0800 ####[facility] [address] [place], [address] SITE R BRACHIAL Normal [facility] Comment on above: Order Comment: Resul ts manually entered by Amber [facility] at 1747 Performed By: #### L 9000.0800 ####[facility] [address] [place], [address] SO2 91 Low 95-99 [facility] Comment on above: Order Comment: Resul ts manually entered by Amber and verified by [facility]01/08/25 at 1747 Performed By: #### L 9000.0800 ####[facility] [address] [place], [address] Blood base excess determinat ionOrdered By: Issa Chapin on 01-08-2025 Base excess Calc (BldV) [Moles/Vol] -3 mmol/L Low -2-2 [facility] Blood bicarbonate measuremen tOrdered By: Issa Chapin on 01-08-2025 HCO3 (Bld) [Moles/Vol] 21.1 mmol/L Low 22-[address] [facility] Blood cultureOrdered By: Issa Chapin on 01-08-2025 Bacteria identified Cx Nom (Bld) No growth in 5 days. [facility] Brain/Head without Contrasto n 01-08-2025 Brain/Head without Contrast Normal [facility] CBC W/Diff, Automatedon 12-17 Absolute Lymph 1.55 X10 3/uL Normal 0.83-4.51 [facility] Comment on above: Performed By: #### L 505.5000, L501.9100, L300.3900, L300.4310, L500.4050, L100.0100, L503.6005, L501.2450 ####[facility] [address] [place], [address] Absolute Neut 7.4 X10 3/uL Normal 2.0-7.7 [facility] Comment on above: Performed By: #### L 505.5000, L501.9100, L300.3900, L300.4310, L500.4050, L100.0100, L503.6005, L501.2450 ####[facility] [address] [place], [address] Basophils/100 WBC (Bld) 0.2 % Normal 0-[address] [facility] Comment on above: Performed By: #### L 505.5000, L501.9100, L300.3900, L300.4310, L500.4050, L100.0100, L503.6005, L501.2450 ####[facility] [address] [place], [address] Eosinophils/100 WBC (Bld) 1.3 % Normal 0-5 [facility] Comment on above: Performed By: #### L 505.5000, L501.9100, L300.3900, L300.4310, L500.4050, L100.0100, L503.6005, L501.2450 ####[facility] [address] [place], [address] Erythrocyte distribution width (RBC) [Ratio] 13.7 % Normal 11.6-14.6 [facility] Comment on above: Performed By: #### L 505.5000, L501.9100, L300.3900, L300.4310, L500.4050, L100.0100, L503.6005, L501.2450 ####[facility] [address] [place], [address] Hematocrit (Bld) [Volume fraction] 41.1 % Normal 37-47 [facility] Comment on above: Performed By: #### L 505.5000, L501.9100, L300.3900, L300.4310, L500.4050, L100.0100, L503.6005, L501.2450 ####[facility] [address] [place], [address] Hemoglobin (Bld) [Mass/Vol] 13.5 g/dL Normal 12.0-15.0 [facility] Comment on above: Performed By: #### L 505.5000, L501.9100, L300.3900, L300.4310, L500.4050, L100.0100, L503.6005, L501.2450 ####[facility] [address] [place], [address] IG% 0.100 Normal 0.0-0.9 [facility] Comment on above: Result Comment: IG% - Immature Granulocytes (promyelocytes, myelocytes andmetamyelocytes) > 1% indicates that a LEFT SHIFT is Present. Performed By: #### L 505.5000, L501.9100, L300.3900, L300.4310, L500.4050, L100.0100, L503.6005, L501.2450 ####[facility] [address] [place], [address] Lymphocytes/100 WBC (Bld) 15.8 % Low 19-41 [facility] Comment on above: Performed By: #### L 505.5000, L501.9100, L300.3900, L300.4310, L500.4050, L100.0100, L503.6005, L501.2450 ####[facility] [address] [place], [address] MCH (RBC) [Entitic mass] 30.5 pg Normal 27.0-32.0 [facility] Comment on above: Performed By: #### L 505.5000, L501.9100, L300.3900, L300.4310, L500.4050, L100.0100, L503.6005, L501.2450 ####[facility] [address] [place], [address] MCHC (RBC) [Mass/Vol] 32.8 g/dL Normal 32-36 [facility] Comment on above: Performed By: #### L 505.5000, L501.9100, L300.3900, L300.4310, L500.4050, L100.0100, L503.6005, L501.2450 ####[facility] [address] [place], [address] MCV (RBC) [Entitic vol] 93.0 fL Normal 81-[address] [facility] Comment on above: Performed By: #### L 505.5000, L501.9100, L300.3900, L300.4310, L500.4050, L100.0100, L503.6005, L501.2450 ####[facility] [address] [place], [address] Monocytes/100 WBC (Bld) 6.6 % Normal 0-10 [facility] Comment on above: Performed By: #### L 505.5000, L501.9100, L300.3900, L300.4310, L500.4050, L100.0100, L503.6005, L501.2450 ####[facility] [address] [place], [address] Neutrophils/100 WBC (Bld) 76.0 % High 47-70 [facility] Comment on above: Performed By: #### L 505.5000, L501.9100, L300.3900, L300.4310, L500.4050, L100.0100, L503.6005, L501.2450 ####[facility] [address] [place], [address] Nucleated RBC (Bld) [#/Vol] 0 10*3/uL Normal 0-5 [facility] Comment on above: Performed By: #### L 505.5000, L501.9100, L300.3900, L300.4310, L500.4050, L100.0100, L503.6005, L501.2450 ####[facility] [address] [place], [address] Platelet mean volume (Bld) [Entitic vol] 10.5 fL Normal 6.2-12.0 [facility] Comment on above: Performed By: #### L 505.5000, L501.9100, L300.3900, L300.4310, L500.4050, L100.0100, L503.6005, L501.2450 ####[facility] [address] [place], [address] Platelets (Bld) [#/Vol] 245 10*3/uL Normal 150-450 [facility] Comment on above: Performed By: #### L 505.5000, L501.9100, L300.3900, L300.4310, L500.4050, L100.0100, L503.6005, L501.2450 ####[facility] [address] [place], [address] RBC (Bld) [#/Vol] 4.42 10*6/uL Normal 4.2-5.4 [facility] Comment on above: Performed By: #### L 505.5000, L501.9100, L300.3900, L300.4310, L500.4050, L100.0100, L503.6005, L501.2450 ####[facility] [address] [place], [address] RDW SD 46.9 fl High 35.1-43.9 [facility] Comment on above: Performed By: #### L 505.5000, L501.9100, L300.3900, L300.4310, L500.4050, L100.0100, L503.6005, L501.2450 ####[facility] [address] [place], [address] WBC (Bld) [#/Vol] 9.8 10*3/uL Normal 4.4-11.0 [facility] Comment on above: Performed By: #### L 505.5000, L501.9100, L300.3900, L300.4310, L500.4050, L100.0100, L503.6005, L501.2450 ####[facility] [address] [place], [place], [id number] Carbon dioxide, total [Moles /volume] in Central venous bloodOrdered By: Issa Chapin on 01-08-2025 CO2 [Moles/Vol] 18.9 mmol/L Low 21.0-32.0 [facility] Chest 1 View (Portable)on Chest 1 View (Portable) Normal [facility] Chloride assayOrdered By: Sagar Chapin on 01-08-2025 Chloride [Moles/Vol] 105 mmol/L 98-108 [facility] Comprehensive Metabolic Prof ilon 01-08-2025 Albumin [Mass/Vol] 3.7 g/dL Normal 3.4-4.8 [facility] Comment on above: Performed By: #### L 505.5000, L501.9100, L300.3900, L300.4310, L500.4050, L100.0100, L503.6005, L501.2450 ####[facility] [address] [place], [address] Albumin/Globulin [Mass ratio] 1.4 {ratio} Normal 0.9-2.4 [facility] Comment on above: Performed By: #### L 505.5000, L501.9100, L300.3900, L300.4310, L500.4050, L100.0100, L503.6005, L501.2450 ####[facility] [address] [place], [place], [phone] ALK PHOS 77 U/L Normal 35-104 [facility] Comment on above: Performed By: #### L 505.5000, L501.9100, L300.3900, L300.4310, L500.4050, L100.0100, L503.6005, L501.2450 ####[facility] [address] [place], [address] ALT [Catalytic activity/Vol] 8 U/L Normal <=34 [facility] Comment on above: Performed By: #### L 505.5000, L501.9100, L300.3900, L300.4310, L500.4050, L100.0100, L503.6005, L501.2450 ####[facility] [address] [place], [address] AST [Catalytic activity/Vol] 18 U/L Normal <=31 [facility] Comment on above: Performed By: #### L 505.5000, L501.9100, L300.3900, L300.4310, L500.4050, L100.0100, L503.6005, L501.2450 ####[facility] [address] [place], [address] Bilirubin [Mass/Vol] 0.39 mg/dL Normal 0.00-1.30 [facility] Comment on above: Performed By: #### L 505.5000, L501.9100, L300.3900, L300.4310, L500.4050, L100.0100, L503.6005, L501.2450 ####[facility] [address] [place], [address] BUN/CRE 9.2 RATIO Low 10-20 [facility] Comment on above: Performed By: #### L 505.5000, L501.9100, L300.3900, L300.4310, L500.4050, L100.0100, L503.6005, L501.2450 ####[facility] [address] [place], [address] Calcium [Mass/Vol] 8.7 mg/dL Normal 7.6-11.0 [facility] Comment on above: Performed By: #### L 505.5000, L501.9100, L300.3900, L300.4310, L500.4050, L100.0100, L503.6005, L501.2450 ####[facility] [address] [place], [address] Chloride [Moles/Vol] 105 mmol/L Normal 98-108 [facility] Comment on above: Performed By: #### L 505.5000, L501.9100, L300.3900, L300.4310, L500.4050, L100.0100, L503.6005, L501.2450 ####[facility] [address] [place], [address] CO2 [Moles/Vol] 18.9 mmol/L Low 21.0-32.0 [facility] Comment on above: Performed By: #### L 505.5000, L501.9100, L300.3900, L300.4310, L500.4050, L100.0100, L503.6005, L501.2450 ####[facility] [address] [place], [address] Creatinine [Mass/Vol] 1.82 mg/dL High 0.70-1.20 [facility] Comment on above: Performed By: #### L 505.5000, L501.9100, L300.3900, L300.4310, L500.4050, L100.0100, L503.6005, L501.2450 ####[facility] [address] [place], [address] ECRCL 38.69 ml/min Low 50-250 [facility] Comment on above: Performed By: #### L 505.5000, L501.9100, L300.3900, L300.4310, L500.4050, L100.0100, L503.6005, L501.2450 ####[facility] [address] [place], [address] GAP 16 High 5-15 [facility] Comment on above: Performed By: #### L 505.5000, L501.9100, L300.3900, L300.4310, L500.4050, L100.0100, L503.6005, L501.2450 ####[facility] [address] [place], [address] GFR/1.73 sq M.predicted among non-blacks MDRD (S/P/Bld) [Vol rate/Area] 31 mL/min/{1.73_m2} Low >60 [facility] Comment on above: Result Comment: mL/m in/1.73m2 CKD-EPI Creatinine Equation (2020) Performed By: #### L 505.5000, L501.9100, L300.3900, L300.4310, L500.4050, L100.0100, L503.6005, L501.2450 ####[facility] [address] [place], [address] Globulin (S) [Mass/Vol] 2.7 g/dL Normal 2.2-4.2 [facility] Comment on above: Performed By: #### L 505.5000, L501.9100, L300.3900, L300.4310, L500.4050, L100.0100, L503.6005, L501.2450 ####[facility] [address] [place], [address] Glucose [Mass/Vol] 138 mg/dL High 70-99 [facility] Comment on above: Performed By: #### L 505.5000, L501.9100, L300.3900, L300.4310, L500.4050, L100.0100, L503.6005, L501.2450 ####[facility] [address] [place], [place], [id number] Potassium [Moles/Vol] 3.4 mmol/L Normal 3.3-5.1 [facility] Comment on above: Performed By: #### L 505.5000, L501.9100, L300.3900, L300.4310, L500.4050, L100.0100, L503.6005, L501.2450 ####[facility] [address] [place], [address] Sodium [Moles/Vol] 140 mmol/L Normal 133-145 [facility] Comment on above: Performed By: #### L 505.5000, L501.9100, L300.3900, L300.4310, L500.4050, L100.0100, L503.6005, L501.2450 ####[facility] [address] [place], [place], [id number] T PROT 6.4 g/dL Normal 5.9-8.4 [facility] Comment on above: Performed By: #### L 505.5000, L501.9100, L300.3900, L300.4310, L500.4050, L100.0100, L503.6005, L501.2450 ####[facility] [address] [place], [place], [phone] Urea nitrogen [Mass/Vol] 17 mg/dL Normal 4-19 [facility] Comment on above: Performed By: #### L 505.5000, L501.9100, L300.3900, L300.4310, L500.4050, L100.0100, L503.6005, L501.2450 ####[facility] [address] [place], [place], [phone] Emergency Department Summary on 01-08-2025 Emergency Department Summary Normal [facility] Eosinophil percentageOrdered By: Issa Chapin on 01-08-2025 Eosinophils/100 WBC (Bld) 1.3 % 0-5 [facility] Erythrocyte distribution wid th ratioOrdered By: [facility] on 01-08-2025 Erythrocyte distribution width (RBC) [Ratio] 13.7 % 11.6-14.6 [facility] Erythrocyte distribution wid th standard deviationOrdered By: Issa Chapin on 01-08-2025 Erythrocyte distribution width (RBC) [Ratio] 46.9 fl High 35.1-43.9 [facility] Glomerular filtration rate ( GFR) estimation/1.73 sq m using serum, plasma, or whole bOrdered By: Issa Chapin on 01-08-2025 GFR/1.73 sq M.predicted among non-blacks MDRD (S/P/Bld) [Vol rate/Area] 31 mL/min/{1.73_m2} Low >60 [facility] H AND P Exam - Hospitaliston 01-08-2025 H&P Exam - Hospitalist Normal [facility] Hematocrit Auto (Bld) [Volum e fraction]Ordered By: [facility] on 01-08-2025 Hematocrit (Bld) [Volume fraction] 41.1 % 37-47 [facility] Hemoglobin measurementOrdere d By: [facility] on 01-08-2025 Hemoglobin (Bld) [Mass/Vol] 13.5 g/dL 12.0-15.0 [facility] Immature granulocytes/100 WB C Auto (Bld)Ordered By: Issa Chapin on 01-08-2025 Immature granulocytes/100 WBC (Bld) 0.100 % 0.0-0.9 [facility] International normalized rat io (INR) calculationOrdered By: [facility] on 01-08-2025 INR Coag (Bld) [Relative time] 1.1 {INR} [facility] Ketones Test strip Ql (U)Ord ered By: [facility] on 01-08-2025 Ketones Ql (U) Negative Negative [facility] Lactic Acidon 01-08-2025 Lactate [Moles/Vol] mmol/L Normal 0.0-2.0 [facility] Comment on above: Performed By: #### L 503.6007 ####[facility] [address] [place], [place], [id number] Lactate [Moles/Vol] 3.9 mmol/L Invalid Interpretation Code 0.0-2.0 [facility] Comment on above: Order Comment: Y Result Comment: Crit ical Result(s) Called ZOILA at: 1759 by:NIKOLAY??Results read back by same. Performed By: #### L 505.5000, L501.9100, L300.3900, L300.4310, L500.4050, L100.0100, L503.6005, L501.2450 ####[facility] [address] [place], [place], [id number] Lactic acid measurementOrder ed By: Issa Chapin on 01-08-2025 Lactate [Moles/Vol] mmol/L 0.0-2.0 [facility] Lipaseon 01-08-2025 Lipase [Catalytic activity/Vol] 22 U/L Normal - [facility] Comment on above: Result Comment: Mahin yoon note:LIPASE revised reference range effective 22.New Lipase methodology. Expected to produce lower valuesthan the previous assay method.NEW Reference Range: 13 - 75 U/L Performed By: #### L 505.5000, L501.9100, L300.3900, L300.4310, L500.4050, L100.0100, L503.6005, L501.2450 ####[facility] [address] [place], [place], [address] Lipase measurementOrdered By : Issa Chapin on 01-08-2025 Lipase [Catalytic activity/Vol] 22 U/L - [facility] Comment on above: Please note:LIPASE r evised reference range effective 22. New Lipase methodology. Expected to produce lower values than the previous assay method. NEW Reference Range: 13 - 75 U/L MCV (mean corpuscular volume ) determinationOrdered By: Issa Chapin on 01-08-2025 MCV (RBC) [Entitic vol] 93.0 fL 81-[address] [facility] Mean corpuscular hemoglobin (MCH) determinationOrdered By: Issa Chapin on 01-08-2025 MCH (RBC) [Entitic mass] 30.5 pg 27.0-32.0 [facility] Measurement, pHOrdered By: Rony Raineso on 01-08-2025 pH (Unsp spec) 7.46 [pH] High 7.35-7.45 [facility] Microscopic analysis of urin e for red blood cells (RBC)Ordered By: Issa Chapin on 01-08-2025 Microscopic analysis of urine for red blood cells (RBC) 0-5 SEEN /hpf 0-5 [facility] Monocyte percentageOrdered B y: Issa Chapin on 01-08-2025 Monocytes/100 WBC (Bld) 6.6 % 0-10 [facility] Mucus LM Ql (Urine sed)Order ed By: Issa Chapin on 01-08-2025 Mucus Ql (Urine sed) 0 SEEN /hpf [facility] Neutrophil percentageOrdered By: Issa Chapin on 01-08-2025 Neutrophils/100 WBC (Bld) 76.0 % High 47-70 [facility] Nitrite Test strip Ql (U)Ord ered By: Issa Chapin on 01-08-2025 Nitrite Ql (U) Negative Negative [facility] No Panel InformationOrdered By: Issa Chapin on 01-08-2025 Blood Gas Liter Flow 3.0 [facility] Blood Gas Sample Site R [facility] Blood Gas Specimen Type ART [facility] ART [facility] R [facility] 3.0 [facility] Urine Buprenorphine Qualitative Negative < 200 ng/mL [facility] Urine Oxycodone Screen Negative < 100 ng/mL [facility] 18 U/L <32 [facility] Negative < 200 ng/mL [facility] Partial Thromboplast Timeon 01-08-2025 aPTT Coag (Bld) [Time] 27.1 s Normal 24.1-36.2 [facility] Comment on above: Performed By: #### L 505.5000, L501.9100, L300.3900, L300.4310, L500.4050, L100.0100, L503.6005, L501.2450 ####[facility] [address] [place], [place], [id number] Platelet countOrdered By: Sagar kirit Chapin on 01-08-2025 Platelets (Bld) [#/Vol] 245 10*3/uL 150-450 [facility] Potassium measurement (mass/ volume)Ordered By: Issa Chapin on 01-08-2025 Potassium (Unsp spec) [Mass/Vol] 3.4 mmol/L 3.3-5.1 [facility] Protein Test strip Ql (U)Ord ered By: Issa Chapin on 01-08-2025 Protein Ql (U) 30 mg/dl High Negative [facility] Prothrombin Time w/INRon INR Coag (PPP) [Relative time] 1.1 {INR} Normal [facility] Comment on above: Performed By: #### L 505.5000, L501.9100, L300.3900, L300.4310, L500.4050, L100.0100, L503.6005, L501.2450 ####[facility] [address] [place], [place], [id number] PT Coag (PPP) [Time] 14.3 s Normal 11.7-14.9 [facility] Comment on above: Performed By: #### L 505.5000, L501.9100, L300.3900, L300.4310, L500.4050, L100.0100, L503.6005, L501.2450 ####[facility] [address] [place], [place], [id number] Prothrombin timeOrdered By: Issa Chapin on 01-08-2025 PT Coag (PPP) [Time] 14.3 s 11.7-14.9 [facility] Quantitative urine opiates m easurementOrdered By: Issa Chapin on 01-08-2025 Opiates Ql (U) Negative < 300 ng/mL [facility] RBC Auto (Bld) [#/Vol]Ordere d By: Issa Chapin on 01-08-2025 RBC (Bld) [#/Vol] 4.42 10*6/uL 4.2-5.4 [facility] Screening urine fentanyl tito surementOrdered By: Issa Chapin on 01-08-2025 fentaNYL Screen Ql (U) Negative [facility] Serum creatinine measurement (mass/volume)Ordered By: Issa Chapin on 01-08-2025 Creatinine [Mass/Vol] 1.82 mg/dL High 0.70-1.20 [facility] Serum globulin measurementOr dered By: Issa Chapin on 01-08-2025 Globulin (S) [Mass/Vol] 2.7 g/dL 2.2-4.[address] [facility] Serum glucose measurement (m ass/volume)Ordered By: Issa Chapin on 01-08-2025 Glucose [Mass/Vol] 138 mg/dL High 70-99 [facility] Serum or plasma alanine obregon otransferase (ALT) measurementOrdered By: Issakirit Chapin on 01-08-2025 ALT [Catalytic activity/Vol] 8 U/L <35 [facility] Serum or plasma albumin dane urement (mass/volume)Ordered By: Issa Chapin on 01-08-2025 Albumin [Mass/Vol] 3.7 g/dL 3.4-4.8 [facility] Serum or plasma albumin/glob ulin mass ratioOrdered By: Issakirit Chapin on 01-08-2025 Albumin/Globulin [Mass ratio] 1.4 {ratio} 0.9-2.4 [facility] Serum or plasma alkaline ruddy sphatase measurementOrdered By: Issakirit Chapin on 01-08-2025 ALP [Catalytic activity/Vol] 77 U/L 35-104 [facility] Serum or plasma calcium dane urement (mass/volume)Ordered By: Issakirit Chapin on 01-08-2025 Calcium [Mass/Vol] 8.7 mg/dL 7.6-11.0 [facility] Serum or plasma ethanol dane urement (mass/volume)Ordered By: Issakirit Chapin on 01-08-2025 Ethanol [Mass/Vol] mg/dL <10.1 [facility] Comment on above: This test is for med ical purposes only. The legal definition of intoxication varies according to local law. Serum or plasma urea nitroge n measurement (mass/volume)Ordered By: Issa Chapin on 01-08-2025 Urea nitrogen [Mass/Vol] 17 mg/dL 4-19 [facility] Sodium levelOrdered By: Issa Chapin on 01-08-2025 Sodium [Moles/Vol] 140 mmol/L 133-145 [facility] Squamous epithelial cells de tection in urine sediment by light microscopyOrdered By: Issa Chapin on 01-08-2025 Epithelial cells.squamous LM Ql (Urine sed) 5-10 SEEN /hpf 5-10 [facility] Total carbon dioxide measure mentOrdered By: Issa Chapin on 01-08-2025 CO2 [Moles/Vol] 22 mmol/L [facility] Total proteinOrdered By: Issa Chapin on 01-08-2025 Protein [Mass/Vol] 6.4 g/dL 5.9-8.4 [facility] Transitional cells detection in urine sediment by light microscopyOrdered By: Issa Chapin on 01-08-2025 Transitional cells LM Ql (Urine sed) 0-5 SEEN /hpf 0-5 [facility] Urinalysis, Completeon 01-08 RBC 0-5 SEEN Normal 0-5 [facility] Comment on above: Order Comment: JASON TER SPECIMEN Performed By: #### L 400.0001 ####[facility] [address] [place], [place], [phone] BACTERIA 2+ /hpf Normal None Seen [facility] Comment on above: Order Comment: JASON TER SPECIMEN Performed By: #### L 400.0001 ####[facility] [address] [place], [place], [phone] EPI,TRANSITION 0-5 SEEN Normal 0-5 [facility] Comment on above: Order Comment: JASON TER SPECIMEN Performed By: #### L 400.0001 ####[facility] [address] [place], [place], [phone] EPI,SQUAMOUS 5-10 SEEN Normal 5-10 [facility] Comment on above: Order Comment: JASON TER SPECIMEN Performed By: #### L 400.0001 ####[facility] [address] [place], [address] WBC 25-50 SEEN Normal 0-5 [facility] Comment on above: Order Comment: JASON TER SPECIMEN Performed By: #### L 400.0001 ####[facility] [address] [place], [address] Mucus Ql (Urine sed) 0 SEEN Normal [facility] Comment on above: Order Comment: JASON TER SPECIMEN Performed By: #### L 400.0001 ####[facility] [address] [place], [address] Urine Drug Screen ([facility]IST[facility])on 01-08-2025 AMPHETAMINES Negative Normal <1000 ng/mL [facility] Comment on above: Performed By: #### L 505.5000, L501.9100, L300.3900, L300.4310, L500.4050, L100.0100, L503.6005, L501.2450 ####[facility] [address] [place], [place], [id number]) BARBITIURATES Negative Normal < 200 ng/mL [facility] Comment on above: Performed By: #### L 505.5000, L501.9100, L300.3900, L300.4310, L500.4050, L100.0100, L503.6005, L501.2450 ####[facility] [address] [place], [address] BENZODIAZIPINE Positive Normal < 200 ng/mL [facility] Comment on above: Result Comment: If c onfirmation testing is needed, a separate order will berequired to send out testing to the reference laboratory. Performed By: #### L 505.5000, L501.9100, L300.3900, L300.4310, L500.4050, L100.0100, L503.6005, L501.2450 ####[facility] [address] [place], [address] BUP Ur Drug Scr Negative Normal < 200 ng/mL [facility] Comment on above: Performed By: #### L 505.5000, L501.9100, L300.3900, L300.4310, L500.4050, L100.0100, L503.6005, L501.2450 ####[facility] [address] [place], [place], [id number] COCAINE Negative Normal < 300 ng/mL [facility] Comment on above: Performed By: #### L 505.5000, L501.9100, L300.3900, L300.4310, L500.4050, L100.0100, L503.6005, L501.2450 ####[facility] [address] [place], [address] Fentanyl Negative Normal [facility] Comment on above: Performed By: #### L 505.5000, L501.9100, L300.3900, L300.4310, L500.4050, L100.0100, L503.6005, L501.2450 ####[facility] [address] [place], [address] METHADONE Negative Normal < 300 ng/mL [facility] Comment on above: Performed By: #### L 505.5000, L501.9100, L300.3900, L300.4310, L500.4050, L100.0100, L503.6005, L501.2450 ####[facility] [address] [place], [address] OPIATES Negative Normal < 300 ng/mL [facility] Comment on above: Performed By: #### L 505.5000, L501.9100, L300.3900, L300.4310, L500.4050, L100.0100, L503.6005, L501.2450 ####[facility] [address] [place], [address] OXYCODONE Negative Normal < 100 ng/mL [facility] Comment on above: Performed By: #### L 505.5000, L501.9100, L300.3900, L300.4310, L500.4050, L100.0100, L503.6005, L501.2450 ####[facility] [address] [place], [place], [id number] PCP Negative Normal < 25 ng/mL [facility] Comment on above: Performed By: #### L 505.5000, L501.9100, L300.3900, L300.4310, L500.4050, L100.0100, L503.6005, L501.2450 ####[facility] [address] [place], [place], [id number] THC Negative Normal < 50 ng/mL [facility] Comment on above: Performed By: #### L 505.5000, L501.9100, L300.3900, L300.4310, L500.4050, L100.0100, L503.6005, L501.2450 ####[facility] [address] [place], [place], [id number] Urine benzodiazepine levelOr dered By: Issa Chapin on 01-08-2025 Benzodiazepines Ql (U) Positive < 200 ng/mL [facility] Comment on above: If confirmation test ing is needed, a separate order will be required to send out testing to the reference laboratory. Urine clarityOrdered By: Issa Chapin on 01-08-2025 Clarity (U) Sl. Cloudy Clear [facility] Urine cocaine levelOrdered B y: Issa Chapin on 01-08-2025 Cocaine Ql (U) Negative < 300 ng/mL [facility] Urine color determinationOrd ered By: Issa Chapin on 01-08-2025 Color (U) Yellow Yellow [facility] Urine cultureOrdered By: Issa Chapin on 01-08-2025 Bacteria identified Cx Nom (U) Culture exhibits no growth. [facility] Urine agrha-3-moyhnzievtlwys abinol (THC) measurementOrdered By: Issa Chapin on 01-08-2025 Cannabinoids Screen Ql (U) Negative < 50 ng/mL [facility] Urine glucose detectionOrder ed By: Issa Chapin on 01-08-2025 Glucose Ql (U) Normal mg/dl Normal [facility] Urine leukocyte esterase det ection by dipstickOrdered By: Issa Chapin on 01-08-2025 Leukocyte esterase Test strip Ql (U) 100 /ul High Negative [facility] Urine pHOrdered By: Issa beth on 01-08-2025 pH (U) 6.0 [pH] 5.0 - 8.0 [facility] Urine phencyclidine (PCP) de tectionOrdered By: Issa Chapin on 01-08-2025 Phencyclidine Ql (U) Negative < 25 ng/mL [facility] Urine sediment bacteria coun t by microscopy (number/high power field)Ordered By: Issa Chapin on 01-08-2025 Bacteria LM.HPF (Urine sed) [#/Area] 2 /[HPF] None Seen [facility] Urine specific gravity measu rementOrdered By: Issa Chapin on 01-08-2025 Specific gravity (U) [Rel density] 1.020 1.002-1.030 [facility] Urine urobilinogen measureme ntOrdered By: Issa Cahpin on 01-08-2025 Urobilinogen Ql (U) 1 mg/dl High Normal [facility] White blood cell (WBC) count Ordered By: Issa Chapin on 01-08-2025 WBC (Bld) [#/Vol] 9.8 10*3/uL 4.4-11.0 [facility] White blood cell countOrdere d By: Issa Chapin on 01-08-2025 White blood cell count 25-50 SEEN /hpf 0-5 [facility] CNPNon 12-25-2024 CNPN Telephone ([facility]) PERNELL RODRIGUEZ ([id number]) 1960 F IPA Date Time Provider Department 12/25/24 HOMER BRADFORD During your visit today, we [...] set up. Please try contacting patient again. [employer] message with provider's response sent to patient as well. OMARI Molina Rilee, MA 12/28/2024 11:57 AM Signed Attempted to reach pt, unable to reach and unable to LM. Letter being sent to pt to contact office regarding her recent lab results. Did not read [employer] message. Letter mailed to pt asking for [...] (HCC) [Z01.0 (more content not included)... Normal [facility] CBC W Auto Differential pane l (Bld)on 12-18-2024 Basophils (Bld) [#/Vol] 0.03 10*3/uL [facility] Basophils/100 WBC (Bld) 0.4 % C [facility] Differential cell count method Nom (Bld) Auto [facility] Eosinophils (Bld) [#/Vol] 0.24 10*3/uL [facility] Eosinophils/100 WBC (Bld) 3.1 % [facility] Erythrocyte distribution width (RBC) [Ratio] 13.8 % 11.5 - 15.0 % [facility] Hematocrit (Bld) [Volume fraction] 44.6 % 36.0 - 46.0 % [facility] Hemoglobin (Bld) [Mass/Vol] 13.8 g/dL 11.5 - 15.5 g/dL [facility] Immature granulocytes (Bld) [#/Vol] [facility] Immature granulocytes/100 WBC (Bld) 0.1 % [facility] Lymphocytes (Bld) [#/Vol] 2.33 10*3/uL [facility] Lymphocytes/100 WBC (Bld) 29.7 % [facility] MCH (RBC) [Entitic mass] 30.1 pg 26. 0 - 34.0 pg [facility] MCHC (RBC) [Mass/Vol] 30.9 g/dL 30.5 - 36.0 g/dL [facility] MCV (RBC) [Entitic vol] 97.4 fL 80.0 - 100.0 fL [facility] Monocytes (Bld) [#/Vol] 0.61 10*3/uL [facility] Monocytes/100 WBC (Bld) 7.8 % [facility] Neutrophils (Bld) [#/Vol] 4.62 10*3/uL [facility] Neutrophils/100 WBC (Bld) 58.9 % [facility] Nucleated RBC (Bld) [#/Vol] [facility] Nucleated RBC/100 WBC (Bld) [Ratio] 0 % /100 WBC [facility] Platelet mean volume (Bld) [Entitic vol] 10.9 fL 9.0 - 12.7 fL [facility] Platelets (Bld) [#/Vol] 281 10*3/uL [facility] RBC (Bld) [#/Vol] 4.58 10*6/uL 3.90 - 5.2 0 m/uL [facility] WBC (Bld) [#/Vol] 7.84 10*3/uL [facility] Basophils (Bld) [#/Vol] 0.03 10*3/uL Normal <0.11 [facility] Comment on above: Order Comment: Speci men Type: BLOOD SPECIMENOrdering Facility: [facility] Address: [address] [place] [address] Performed By: #### 5 7021-8 ####[facility] LABCLIA [id number] [place] [address] [place] Basophils/100 WBC (Bld) 0.4 % Normal [facility] Comment on above: Order Comment: Speci men Type: BLOOD SPECIMENOrdering Facility: [facility] Address: [address] [place] [address] Performed By: #### 5 7021-8 ####[facility] LABCLIA [id number] [place] [address] [place] Differential cell count method Nom (Bld) Auto Normal [facility] Comment on above: Order Comment: Speci men Type: BLOOD SPECIMENOrdering Facility: [facility] Address: [address] [place] [address] Performed By: #### 5 7021-8 ####[facility] LABCLIA [id number] [address] [place] Eosinophils (Bld) [#/Vol] 0.24 10*3/uL Normal <0.46 [facility] Comment on above: Order Comment: Speci men Type: BLOOD SPECIMENOrdering Facility: [facility] Address: [address] [place] [address] Performed By: #### 5 7021-8 ####[facility] LABCLIA [id number] [address] [place] Eosinophils/100 WBC (Bld) 3.1 % Normal [facility] Comment on above: Order Comment: Speci men Type: BLOOD SPECIMENOrdering Facility: [facility] Address: [address] [place] [address] Performed By: #### 5 7021-8 ####[facility] LABCLIA [id number] [place] [address] [place] Erythrocyte distribution width (RBC) [Ratio] 13.8 % Normal 11.5-15.0 [facility] Comment on above: Order Comment: Speci men Type: BLOOD SPECIMENOrdering Facility: [facility] Address: [address] [place] [address] Performed By: #### 5 7021-8 ####[facility] LABCLIA [id number] [place] [address] [place] Hematocrit (Bld) [Volume fraction] 44.6 % Normal 36.0-46.0 [facility] Comment on above: Order Comment: Speci men Type: BLOOD SPECIMENOrdering Facility: [facility] Address: [address] [place] [address] Performed By: #### 5 7021-8 ####[facility] LABIA [id number] [place] [address] [place] Hemoglobin (Bld) [Mass/Vol] 13.8 g/dL Normal 11.5-15.5 [facility] Comment on above: Order Comment: Speci men Type: BLOOD SPECIMENOrdering Facility: [facility] Address: [address] [place] [address] Performed By: #### 5 7021-8 ####[facility] LABIA [id number] [place] [address] [place] Immature granulocytes (Bld) [#/Vol] 10*3/uL Normal <0.10 [facility] Comment on above: Order Comment: Speci men Type: BLOOD SPECIMENOrdering Facility: [facility] Address: [address] [place] [address] Performed By: #### 5 7021-8 ####[facility] LABIA [id number] [place] [address] [place] Immature granulocytes/100 WBC (Bld) 0.1 % Normal [facility] Comment on above: Order Comment: Speci men Type: BLOOD SPECIMENOrdering Facility: [facility] Address: [address] [place] [address] Performed By: #### 5 7021-8 ####[facility] LABCLIA [id number] [place] [address] [place] Lymphocytes (Bld) [#/Vol] 2.33 10*3/uL Normal 1.00-4.00 [facility] Comment on above: Order Comment: Speci men Type: BLOOD SPECIMENOrdering Facility: [facility] Address: [address] [place] [address] Performed By: #### 5 7021-8 ####[facility] LABCLIA [id number] [place] [address] [place] Lymphocytes/100 WBC (Bld) 29.7 % Normal [facility] Comment on above: Order Comment: Speci men Type: BLOOD SPECIMENOrdering Facility: [facility] Address: [address] [place] [address] Performed By: #### 5 7021-8 ####[facility] LABCLIA [id number] [place] [address] [place] MCH (RBC) [Entitic mass] 30.1 pg Normal 26.0-34.0 [facility] Comment on above: Order Comment: Speci men Type: BLOOD SPECIMENOrdering Facility: [facility] Address: [address] [place] [address] Performed By: #### 5 7021-8 ####[facility] LABCLIA [id number] [place] [address] [place] MCHC (RBC) [Mass/Vol] 30.9 g/dL Normal 30.5-36.0 [facility] Comment on above: Order Comment: Speci men Type: BLOOD SPECIMENOrdering Facility: [facility] Address: [address] [place] [address] Performed By: #### 5 7021-8 ####[facility] LABCLIA [id number] [address] [address] [place] MCV (RBC) [Entitic vol] 97.4 fL Normal 80.0-100.0 C [facility] Comment on above: Order Comment: Speci men Type: BLOOD SPECIMENOrdering Facility: [facility] Address: [address] [place] [address] Performed By: #### 5 7021-8 ####[facility] LABCLIA [id number] [place] [address] [place] Monocytes (Bld) [#/Vol] 0.61 10*3/uL Normal <0.87 [facility] Comment on above: Order Comment: Speci men Type: BLOOD SPECIMENOrdering Facility: [facility] Address: [address] [place] [address] Performed By: #### 5 7021-8 ####[facility] LABCLIA [id number] [place] [address] [place] Monocytes/100 WBC (Bld) 7.8 % Normal [facility] Comment on above: Order Comment: Speci men Type: BLOOD SPECIMENOrdering Facility: [facility] Address: [address] [place] [address] Performed By: #### 5 7021-8 ####[facility] LABCLIA [id number] [place] [address] [place] Neutrophils (Bld) [#/Vol] 4.62 10*3/uL Normal 1.45-7.50 [facility] Comment on above: Order Comment: Speci men Type: BLOOD SPECIMENOrdering Facility: [facility] Address: [address] [place] [address] Performed By: #### 5 7021-8 ####[facility] LABCLIA [id number] [place] [address] [place] Neutrophils/100 WBC (Bld) 58.9 % Normal [facility] Comment on above: Order Comment: Speci men Type: BLOOD SPECIMENOrdering Facility: [facility] Address: [address] [place] [address] Performed By: #### 5 7021-8 ####[facility] LABCLIA [id number] [place] [address] [place] Nucleated RBC (Bld) [#/Vol] 10*3/uL Normal <0.01 [facility] Comment on above: Order Comment: Speci men Type: BLOOD SPECIMENOrdering Facility: [facility] Address: [address] [place] [address] Performed By: #### 5 7021-8 ####[facility] LABCLIA [id number] [place] [address] [place] Nucleated RBC/100 WBC (Bld) [Ratio] 0.0 /100 WBC Normal [facility] Comment on above: Order Comment: Speci men Type: BLOOD SPECIMENOrdering Facility: [facility] Address: [address] [place] [address] Performed By: #### 5 7021-8 ####[facility] LABIA [id number] [place] [address] [place] Platelet mean volume (Bld) [Entitic vol] 10.9 fL Normal 9.0-12.7 [facility] Comment on above: Order Comment: Speci men Type: BLOOD SPECIMENOrdering Facility: [facility] Address: [address] [place] [address] Performed By: #### 5 7021-8 ####[facility] LABCLIA [id number] [place] [id number] [place] Platelets (Bld) [#/Vol] 281 10*3/uL Normal 150-400 [facility] Comment on above: Order Comment: Speci men Type: BLOOD SPECIMENOrdering Facility: [facility] Address: [address] [place] [address] Performed By: #### 5 7021-8 ####[facility] LABCLIA [id number] [place] [address] [place] RBC (Bld) [#/Vol] 4.58 10*6/uL Normal 3.90-5.20 [facility] Comment on above: Order Comment: Speci men Type: BLOOD SPECIMENOrdering Facility: [facility] Address: [address] [place] [address] Performed By: #### 5 7021-8 ####[facility] LABCLIA [id number] [place] [address] [place] WBC (Bld) [#/Vol] 7.84 10*3/uL Normal 3.70-11.00 [facility] Comment on above: Order Comment: Speci men Type: BLOOD SPECIMENOrdering Facility: [facility] Address: [address] [place] [address] Performed By: #### 5 7021-8 ####[facility] LABCLIA [id number] [address] [place] CNOVon 12-18-2024 CNOV Office Visit ([facility]AMPWS ) PERNELL RODRIGUEZ ([id number]) 1960 F Date Time Provider Department 12/18/24 11:20 AM HOMER BRADFORD FAMPWS During your visit today, [...] several years or 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 Some of this is due to the fact she lost her manager case through the [facility] services who [...] few months. She was first admitted to [facility] on 09/12/2023, after returning from [place], for a blood clot and was discharged with a 30-day prescription for Eliquis. She has not followed up with her primary care physician or specialists since then and has been off Eliquis for 2-3 months. She has not seen her hair or beauty salon assistant, ship officer, or neurologist in the last 6 months. She has been living with a friend temporarily but does not have a permanent place to live and is technically still homeless. She has been advised to move into a intermediate facility but has refused due to negative [...] Chest pain 02/14/[address] Jacob in [facility]. Had a normal cardiac CTA in 2009 with no calcium. Chronic back pain greater than 3 months duration 04/02/2015 Chronic insomnia 03/12/2020 Ilya Calderón ([facility]) on melatonin. Chronic obstructive pulmonary disease (HCC) 04/25/2015 Chronic pain 01/14/2014 Constipation 02/12/2014 [place] or callus 11/16/2015 Current use of proton pump inhibitor 10/11/2017 CVA (cerebral infarction) 01/14/2014 Diabetic eye exam ([facility]) 01/14/[address] Sanchez last done 03/02/2019 Diabetic foot ([facility]) 01/14/[address] Martins Extrapyramidal reaction 01/14/2014 Gastroesophageal reflux disease without esophagitis 04/25/2015 History of CVA (cerebrovascular accident) 04/25/[address] Ilya Calderón ([facility]) Hives (more content not included)... Normal [facility] Comprehensive metabolic 2000 panelon 12-18-2024 Albumin [Mass/Vol] 3.8 g/dL Low 3.9-4.9 [facility] Comment on above: Order Comment: Speci men Type: BLOOD SPECIMENOrdering Facility: [facility] Address: [address] [place] [address] [place] [address] Performed By: #### L [facility], [address]-1, , 2132-03 ####[facility] LABCLIA [id number] [address] [address] [place] ALP [Catalytic activity/Vol] 79 U/L Normal 34-123 [facility] Comment on above: Order Comment: Speci men Type: BLOOD SPECIMENOrdering Facility: [facility] Address: [address] [place] [address] Performed By: #### L IPNF, , , 2132-03 ####[facility] LABCLIA [id number] [address] [address] [place] ALT [Catalytic activity/Vol] 10 U/L Normal 7-38 [facility] Comment on above: Order Comment: Speci men Type: BLOOD SPECIMENOrdering Facility: [facility] Address: [address] [place] [address] Performed By: #### L IPNF, , , 2132-03 ####[facility] LABCLIA [id number] [address] [address] [place] Anion gap [Moles/Vol] 7 mmol/L Low 8-15 [facility] Comment on above: Order Comment: Speci men Type: BLOOD SPECIMENOrdering Facility: [facility] Address: [address] [place] [address] Performed By: #### L IPNF, , , 2132-03 ####[facility] LABCLIA [id number] [address] [address] [place] AST [Catalytic activity/Vol] 16 U/L Normal 13-35 [facility] Comment on above: Order Comment: Speci men Type: BLOOD SPECIMENOrdering Facility: [facility] Address: [address] [place] [address] Performed By: #### L IPNF, , , 2132-03 ####[facility] LABCLIA [id number] [address] [address] [place] Bilirubin [Mass/Vol] 0.3 mg/dL Normal 0.2-1.3 [facility] Comment on above: Order Comment: Speci men Type: BLOOD SPECIMENOrdering Facility: [facility] Address: [address] [place] [address] Performed By: #### L IPNF, , , 2132-03 ####[facility] LABCLIA [id number] [address] [address] [place] Calcium [Mass/Vol] 9.5 mg/dL Normal 8.5-10.2 [facility] Comment on above: Order Comment: Speci men Type: BLOOD SPECIMENOrdering Facility: [facility] Address: [address] [place] [address] Performed By: #### L IPNF, , , 2132-03 ####[facility] LABCLIA [id number] [place] [address] [place] Chloride [Moles/Vol] 110 mmol/L High 98-107 [facility] Comment on above: Order Comment: Speci men Type: BLOOD SPECIMENOrdering Facility: [facility] Address: [address] [place] [address] Performed By: #### L IPNF, , , 2132-03 ####[facility] LABCLIA [id number] [address] [address] [place] CO2 [Moles/Vol] 26 mmol/L Normal 22-30 [facility] Comment on above: Order Comment: Speci men Type: BLOOD SPECIMENOrdering Facility: [facility] Address: [address] [place], [place] [address] Performed By: #### L IPNF, , , 2132-03 ####[facility] LABCLIA [id number] [place] [id number] [place] Creatinine [Mass/Vol] 1.21 mg/dL High 0.58-0.96 [facility] Comment on above: Order Comment: César carrera Type: BLOOD SPECIMENOrdering Facility: [facility] Address: [address] [place] [address] Performed By: #### L IPNF, , , 2132-03 ####[facility] LABIA [id number] [place] [address] [place] Creatinine and Glomerular filtration rate.predicted panel (S/P/Bld) 51 mL/min/1.73m??? Low >=60 [facility] Comment on above: Order Comment: César carrera Type: BLOOD SPECIMENOrdering Facility: [facility] Address: [address] [place] [address] Result Comment: Maurilio mated Glomerular Filtration Rate [...] accurately reflect actual GFR. Performed By: #### L IPNF, , , 2132-03 ####[facility] LABIA [id number] [place] [id number] [place] Glucose [Mass/Vol] 94 mg/dL Normal 74-99 [facility] Comment on above: Order Comment: César carrera Type: BLOOD SPECIMENOrdering Facility: [facility] Address: [address] [place] [address] Result Comment: The [place] [employer] (ADA) provides guidance for cutoff [...] Standards of Medical Care in Diabetes 2016, [place] [employer]. Diabetes Care. 2016.39(Suppl 1). Performed By: #### L IPNF, , , 2132-03 ####[facility] LABCLIA [id number] [place] [address] [place] Potassium [Moles/Vol] 4.4 mmol/L Normal 3.7-5.1 [facility] Comment on above: Order Comment: Speci men Type: BLOOD SPECIMENOrdering Facility: [facility] Address: [address] [place] [address] Performed By: #### L IPNF, , , 2132-03 ####[facility] LABIA [id number] [place] [address] [place] Protein [Mass/Vol] 6.3 g/dL Normal 6.3-8.0 [facility] Comment on above: Order Comment: Savannai deandre Type: BLOOD SPECIMENOrdering Facility: [facility] Address: [address] [place] [address] Performed By: #### L IPNF, , , 2132-03 ####[facility] LABIA [id number] [place] [address] [place] Sodium [Moles/Vol] 143 mmol/L Normal 136-144 [facility] Comment on above: Order Comment: Speci men Type: BLOOD SPECIMENOrdering Facility: [facility] Address: [address] [place] [address] Performed By: #### L IPNF, , , 2132-03 ####[facility] LABCLIA [id number] [place] [address] [place] Urea nitrogen [Mass/Vol] 16 mg/dL Normal 7-21 [facility] Comment on above: Order Comment: César carrera Type: BLOOD SPECIMENOrdering Facility: [facility] Address: [address] [place] [address] Performed By: #### L IPNF, 07878-5, 95644-3, 2131-9 ####[facility] LABCLIA [id number] [place] [address] [place] HbA1c (Bld)on 12-18-2024 Average glucose Estimated from glycated hemoglobin (Bld) [Mass/Vol] 123 mg/dL [facility] Comment on above: eAG: (Estimated aver age glucose) is a calculated value from HgbA1c and is ambulatory services representative of the average blood glucose level in the last 2-3 month period. HbA1c (Bld) [Mass fraction] 5.9 % High 4.3 - 5.6 % [facility] Comment on above: [place] Diabetes As sociation guidelines indicate that patients with HgbA1c in the range 5.7-6.4% are at increased risk for development of diabetes, and intervention by lifestyle modification may be beneficial. HgbA1c greater or equal to 6.5% is considered diagnostic of diabetes. Interpretation and review of laboratory results Abnormal [facility] Average glucose Estimated from glycated hemoglobin (Bld) [Mass/Vol] 123 mg/dL Normal [facility] Comment on above: Order Comment: César carrera Type: BLOOD SPECIMENOrdering Facility: [facility] Address: [address] [place] [address] Result Comment: eAG: (Estimated average glucose) is a calculated value from HgbA1c and is ambulatory services representative of the average blood glucose level in the last 2-3 month period. Performed By: #### 5 5454-3 ####[facility] LABCLIA [id number] [place] [address] [place] HbA1c (Bld) [Mass fraction] 5.9 % High 4.3-5.6 [facility] Comment on above: Order Comment: César carrera Type: BLOOD SPECIMENOrdering Facility: [facility] Address: [address] [place] [address] Result Comment: [place] Diabetes Association guidelines indicate that patients with HgbA1c in the range 5.7-6.4% are at increased risk for development of diabetes, and intervention by lifestyle modification may be beneficial. HgbA1c greater or equal to 6.5% is considered diagnostic of diabetes. Performed By: #### 5 5454-3 ####[facility] LABCLIA [id number] [place] [address] [place] LIPID PANEL, NONFASTINGon Cholesterol [Mass/Vol] 129 mg/dL Normal <200 [facility] Comment on above: Order Comment: Speci men Type: BLOOD SPECIMENOrdering Facility: [facility] Address: [address] [place] [address] Result Comment: <200 mg/dL, Desirable 200-239 mg/dL, Borderline high >239 mg/dL, High Performed By: #### L IPNF, 24008-7, , 2132-03 ####[facility] LABCLIA [id number] [place] [address] [place] HDL CHOLESTEROL, NF 41 mg/dL Normal >39 [facility] Comment on above: Order Comment: Savannai deandre Type: BLOOD SPECIMENOrdering Facility: [facility] Address: [address] [place] [address] Result Comment: 40-5 9 mg/dL, Acceptable >59 mg/dL, High: Negative risk factor for coronary heart disease <40 mg/dL, Low: Positive risk factor for coronary heart disease Performed By: #### L IPNF, 44860-7, , 2132-03 ####[facility] LABCLIA [id number] [place] [address] [place] LDL CHOLESTEROL CALCULATED, NF 67 mg/dL Normal <100 [facility] Comment on above: Order Comment: Speci men Type: BLOOD SPECIMENOrdering Facility: [facility] Address: [address] [place] [address] Result Comment: <100 mg/dL, Optimal 100-129 mg/dL, Near optimal/above optimal 130-159 mg/dL, Borderline high 160-189 mg/dL, High >189 mg/dL, Very high Secondary prevention optimal LDL Cholesterol levels are recommended to be <70 mg/dL LDL cholesterol is calculated using the Raya-NIH equation. Performed By: #### L SAMANTHA, , , 2132-03 ####[facility] LABCLIA [id number] [place] [address] [place] LDL/HDL RATIO, NF 1.63 mg/dL Normal <2.54 [facility] Comment on above: Order Comment: César carrera Type: BLOOD SPECIMENOrdering Facility: [facility] Address: [address] [place] [address] Result Comment: Refe rence: 1. National Cholesterol Education Program ATP III Guideline At-A-Glance Quick Desk Reference: National Heart, Lung, and Blood Ryan. National Institutes of Health. 2001: NIH Publication No. 01-3305. 2. An International Atherosclerosis Society position paper: global recommendations for the management of dyslipidemia: executive summary, Atherosclerosis. 2014: 232(2):410-413. Performed By: #### L SAMANTHA, , , 2132-03 ####[facility] LABCLIA [id number] [place] [address] [place] NON HDL CHOL, NF 88 mg/dL Normal <130 [facility] Comment on above: Order Comment: César carrera Type: BLOOD SPECIMENOrdering Facility: [facility] Address: [address] [place] [address] Result Comment: <130 mg/dL, Optimal 130-159 mg/dL, Near optimal/above optimal 160-189 mg/dL, Borderline high 190-219 mg/dL, High >219 mg/dL, Very high Secondary prevention optimal non HDL Cholesterol levels are recommended to be <100 mg/dL Performed By: #### L SAMANTHA, , , 2132-03 ####[facility] LABCLIA [id number] [address] [address] [place] T CHOL/HDL RATIO NF 3.15 mg/dL Normal <5.10 [facility] Comment on above: Order Comment: Speci men Type: BLOOD SPECIMENOrdering Facility: [facility] Address: [address] [place] [address] Performed By: #### L IPNF, , , 2132-03 ####[facility] LABCLIA [id number] [address] [address] [place] TRIGLYCERIDES, NF 113 mg/dL Normal <150 [facility] Comment on above: Order Comment: Speci men Type: BLOOD SPECIMENOrdering Facility: [facility] Address: [address] [place] [address] Result Comment: <150 mg/dL, Normal 150-199 mg/dL, Borderline high 200-499 mg/dL, High >499 mg/dL, Very high Performed By: #### L IPNF, , , 2132-03 ####[facility] LABCLIA [id number] [place] [address] [place] VLDL CHOLESTEROL, NF 17 mg/dL Normal <30 [facility] Comment on above: Order Comment: Speci men Type: BLOOD SPECIMENOrdering Facility: [facility] Address: [address] [place] [address] Performed By: #### L IPNF, , , 2132-03 ####[facility] LABCLIA [id number] [place] [id number] [place] Magnesium SerPl-mCncon 12-18 Magnesium [Mass/Vol] 2.1 mg/dL Normal 1.7-2.3 [facility] Comment on above: Order Comment: Speci men Type: BLOOD SPECIMENOrdering Facility: [facility] Address: [address] [place] [address] Performed By: #### L IPNF, 57474-8, , 2132-03 ####[facility] LABCLIA [id number] [place] [id number] [place] Vit B12 SerPl-ncon 12-18-2 025 Cobalamin (Vitamin B12) [Mass/Vol] 428 pg/mL Normal 232-1245 [facility] Comment on above: Order Comment: Speci men Type: BLOOD SPECIMENOrdering Facility: [facility] Address: [address] [place] [id number] Performed By: #### L IPNF, , , 2132-03 ####[facility] LABCLIA [id number] [place] [id number] [facility] CNPNatalie 12-07-2024 CNPN Telephone (FAMPWS) PERNELL RODRIGUEZ ([id number]) 1960 F Date Time Provider Department 12/07/[facility] During your visit today, we recorded the following information about you: Shanti Monreal RN 12/07/2024 2:50 PM Signed Pernell calls to report that she needs an order for incontinence supplies (2 XL pull ups) faxed to [facility] at [phone]. Patient reports that the full size briefs [...] be out soon. Please file order. TAMRA Aldrich Jeffrey A, MD 12/11/2024 11:06 AM Signed [...] - COMPO (more content not included)... Normal [facility] Abdomen/Pelvis W IV Cont ONL Yon 11-14-2024 Abdomen/Pelvis W IV Cont ONLY Normal [facility] Absolute lymphocyte countOrd ered By: Wyatt Amos on 11-14-2024 Lymphocytes Auto (Unsp spec) [#/Vol] 1.83 10*3/uL 0.83-4.51 [facility] Anion gap in Serum or Plasma Ordered By: Wyatt Amos on 11-14-2024 Anion gap [Moles/Vol] 12 mmol/L 5-15 [facility] Anisocytosis LM Ql (Bld)Orde red By: Wyatt Amos on 11-14-2024 Anisocytosis Ql (Bld) [employer] [facility] Automated lymphocyte count a s percentage of total leukocytesOrdered By: Wyatt Amos on 11-14-2024 Lymphocytes/100 WBC Auto (Unsp spec) 20.8 % 19-41 [facility] BUN/creatinine ratioOrdered By: Wyatt Amos on 11-14-2024 Urea nitrogen/Creatinine [Mass ratio] 12.9 mg/mg 10-20 [facility] Band neutrophils %Ordered By : Wyatt Amos on 11-14-2024 Band neutrophils % [employer] [facility] Basophil percentageOrdered B y: Wyatt Amos on 11-14-2024 Basophils/100 WBC (Bld) 0.3 % 0-[address] [facility] Basophils/100 WBC Manual cnt (Unsp spec)Ordered By: Wyatt Amos on 11-14-2024 Basophils/100 WBC (Unsp spec) [employer] [facility] Bilirubin Test strip Ql (U)O rdered By: Wyatt Amos on 11-14-2024 Bilirubin Ql (U) Negative Negative [facility] Bilirubin, totalOrdered By: Wyatt Amos on 11-14-2024 Bilirubin [Mass/Vol] 0.41 mg/dL 0.00-1.30 [facility] Bite cells detectionOrdered By: Wyatt Amos on 11-14-2024 Bite cells LM Ql (Bld) [employer] [facility] Blood Debra rods detection by light microscopyOrdered By: Wyatt Amos on 11-14-2024 Debra rods LM Ql (Bld) [employer] [facility] Blood acanthocytes detection by light microscopyOrdered By: Wyatt Amos on 11-14-2024 Acanthocytes LM Ql (Bld) [facility] Blood basophilic stippling d etection by light microscopyOrdered By: Wyatt Amos on 11-14-2024 Basophilic stippling LM Ql (Bld) [employer] [facility] Blood maksim cells detection b y light microscopyOrdered By: Wyatt Amos on 11-14-2024 Whittier cells LM Ql (Bld) [employer] [facility] Blood dohle body detection b y light microscopyOrdered By: Wyatt Amos on 11-14-2024 Dohle body LM Ql (Bld) [employer] [facility] Blood leukocytes count corre cted for nucleated erythrocytes (number/volume)Ordered By: Wyatt Amos on 11-14-2024 WBC corrected for nucl RBC (Bld) [#/Vol] [employer] [facility] Blood manual differential co mment interpretation (narrative result)Ordered By: Wyatt Amso on 11-14-2024 Manual differential comment Jacobo (Bld) [Interp] [employer] [facility] Blood platelet morphology de termination (nominal result)Ordered By: Wyatt Amos on 11-14-2024 Platelet morphology finding Nom (Bld) [employer] [facility] Blood polychromasia detectio n by light microscopyOrdered By: Wyatt Mariscal on 11-14-2024 Polychromasia LM Ql (Bld) [employer] [facility] Blood rouleaux detection by light microscopyOrdered By: Wyatt Amos on 11-14-2024 Rouleaux LM Ql (Bld) [employer] [facility] Blood schistocyte detection by light microscopyOrdered By: Wyatt Amos on 11-14-2024 Schistocytes LM Ql (Bld) [employer] [facility] Blood spherocyte detection b y light microscopyOrdered By: Wyatt Amos on 11-14-2024 Spherocytes LM Ql (Bld) [employer] [facility] Blood vacuolated neutrophils detection by light microscopyOrdered By: Wyatt Amos on 11-14-2024 Neutrophils.vacuolated LM Ql (Bld) [employer] [facility] CBC W/Diff, Automatedon 10-18 Absolute Lymph 1.83 X10 3/uL Normal 0.83-4.51 [facility] Comment on above: Result Comment: DIFF INCORRECT Performed By: #### L 501.2450, L100.0100, L500.4050 ####[facility] [address] [place], [address] Absolute Neut 6.0 X10 3/uL Normal 2.0-7.7 [facility] Comment on above: Result Comment: DIFF INCORRECT Performed By: #### L 501.2450, L100.0100, L500.4050 ####[facility] [address] [place], [address] Basophils/100 WBC (Bld) 0.3 % Normal 0-[address] [facility] Comment on above: Result Comment: DIFF INCORRECT Performed By: #### L 501.2450, L100.0100, L500.4050 ####[facility] [address] [place], [address] Eosinophils/100 WBC (Bld) 2.5 % Normal 0-5 [facility] Comment on above: Result Comment: DIFF INCORRECT Performed By: #### L 501.2450, L100.0100, L500.4050 ####[facility] [address] [place], [address] Erythrocyte distribution width (RBC) [Ratio] 13.8 % Normal 11.6-14.6 [facility] Comment on above: Result Comment: DIFF INCORRECT Performed By: #### L 501.2450, L100.0100, L500.4050 ####[facility] [address] [place], [address] Hematocrit (Bld) [Volume fraction] 43.3 % Normal 37-47 [facility] Comment on above: Result Comment: DIFF INCORRECT Performed By: #### L 501.2450, L100.0100, L500.4050 ####[facility] [address] [place], [address] Hemoglobin (Bld) [Mass/Vol] 14.1 g/dL Normal 12.0-15.0 [facility] Comment on above: Result Comment: DIFF INCORRECT Performed By: #### L 501.2450, L100.0100, L500.4050 ####[facility] [address] [place], [address] IG% 0.200 Normal 0.0-0.9 [facility] Comment on above: Result Comment: IG% - Immature Granulocytes (promyelocytes, myelocytes andmetamyelocytes) > 1% indicates that a LEFT SHIFT is Present. Performed By: #### L 501.2450, L100.0100, L500.4050 ####[facility] [address] [place], [address] Lymphocytes/100 WBC (Bld) 20.8 % Normal 19-41 [facility] Comment on above: Result Comment: DIFF INCORRECT Performed By: #### L 501.2450, L100.0100, L500.4050 ####[facility] [address] [place], [address] MCH (RBC) [Entitic mass] 30.9 pg Normal 27.0-32.0 [facility] Comment on above: Result Comment: DIFF INCORRECT Performed By: #### L 501.2450, L100.0100, L500.4050 ####[facility] [address] [place], [address] MCHC (RBC) [Mass/Vol] 32.6 g/dL Normal 32-36 [facility] Comment on above: Result Comment: DIFF INCORRECT Performed By: #### L 501.2450, L100.0100, L500.4050 ####[facility] [address] [place], [address] MCV (RBC) [Entitic vol] 95.0 fL Normal 81-99 [facility] Comment on above: Result Comment: DIFF INCORRECT Performed By: #### L 501.2450, L100.0100, L500.4050 ####[facility] [address] [place], [address] Monocytes/100 WBC (Bld) 7.6 % Normal 0-10 [facility] Comment on above: Result Comment: DIFF INCORRECT Performed By: #### L 501.2450, L100.0100, L500.4050 ####[facility] [address] [place], [address] Neutrophils/100 WBC (Bld) 68.6 % Normal 47-70 [facility] Comment on above: Result Comment: DIFF INCORRECT Performed By: #### L 501.2450, L100.0100, L500.4050 ####[facility] [address] [place], [address] Nucleated RBC (Bld) [#/Vol] 0 10*3/uL Normal 0-5 [facility] Comment on above: Result Comment: DIFF INCORRECT Performed By: #### L 501.2450, L100.0100, L500.4050 ####[facility] [address] [place], [address] Platelet mean volume (Bld) [Entitic vol] 10.5 fL Normal 6.2-12.0 [facility] Comment on above: Result Comment: DIFF INCORRECT Performed By: #### L 501.2450, L100.0100, L500.4050 ####[facility] [address] [place], [address] Platelets (Bld) [#/Vol] 325 10*3/uL Normal 150-450 [facility] Comment on above: Result Comment: DIFF INCORRECT Performed By: #### L 501.2450, L100.0100, L500.4050 ####[facility] [address] [place], [address] RBC (Bld) [#/Vol] 4.56 10*6/uL Normal 4.2-5.4 [facility] Comment on above: Result Comment: DIFF INCORRECT Performed By: #### L 501.2450, L100.0100, L500.4050 ####[facility] [address] [place], [address] RDW SD 47.9 fl High 35.1-43.9 [facility] Comment on above: Result Comment: DIFF INCORRECT Performed By: #### L 501.2450, L100.0100, L500.4050 ####[facility] [address] [place], [address] WBC (Bld) [#/Vol] 8.8 10*3/uL Normal 4.4-11.0 [facility] Comment on above: Result Comment: DIFF INCORRECT Performed By: #### L 501.2450, L100.0100, L500.4050 ####[facility] [address] [place], [address] Carbon dioxide, total [Moles /volume] in Central venous bloodOrdered By: Wyatt Amos on 11-14-2024 CO2 [Moles/Vol] 22.5 mmol/L 21.0-32.0 [facility] Chloride assayOrdered By: Keshav Amos on 11-14-2024 Chloride [Moles/Vol] 105 mmol/L 98-108 [facility] Comprehensive Metabolic Prof ilon 11-14-2024 Albumin [Mass/Vol] 4.2 g/dL Normal 3.4-4.8 [facility] Comment on above: Performed By: #### L 501.2450, L100.0100, L500.4050 ####[facility] [address] [place], [address] Albumin/Globulin [Mass ratio] 1.3 {ratio} Normal 0.9-2.4 [facility] Comment on above: Performed By: #### L 501.2450, L100.0100, L500.4050 ####[facility] [address] [place], [address] ALK PHOS 79 U/L Normal 35-104 [facility] Comment on above: Performed By: #### L 501.2450, L100.0100, L500.4050 ####[facility] [address] [place], [address] ALT [Catalytic activity/Vol] 19 U/L Normal <=34 [facility] Comment on above: Performed By: #### L 501.2450, L100.0100, L500.4050 ####[facility] [address] [place], [address] AST [Catalytic activity/Vol] 27 U/L Normal <=31 [facility] Comment on above: Performed By: #### L 501.2450, L100.0100, L500.4050 ####[facility] [address] [place], [address] Bilirubin [Mass/Vol] 0.41 mg/dL Normal 0.00-1.30 [facility] Comment on above: Performed By: #### L 501.2450, L100.0100, L500.4050 ####[facility] [address] [place], [address] BUN/CRE 12.9 RATIO Normal 10-20 [facility] Comment on above: Performed By: #### L 501.2450, L100.0100, L500.4050 ####[facility] [address] [place], [address] Calcium [Mass/Vol] 9.7 mg/dL Normal 7.6-11.0 [facility] Comment on above: Performed By: #### L 501.2450, L100.0100, L500.4050 ####[facility] [address] [place], [address] Chloride [Moles/Vol] 105 mmol/L Normal 98-108 [facility] Comment on above: Performed By: #### L 501.2450, L100.0100, L500.4050 ####[facility] [address] [place], [address] CO2 [Moles/Vol] 22.5 mmol/L Normal 21.0-32.0 [facility] Comment on above: Performed By: #### L 501.2450, L100.0100, L500.4050 ####[facility] [address] [place], [address] Creatinine [Mass/Vol] 1.31 mg/dL High 0.70-1.20 [facility] Comment on above: Performed By: #### L 501.2450, L100.0100, L500.4050 ####[facility] [address] [place], [address] ECRCL 55.91 ml/min Normal 50-250 [facility] Comment on above: Performed By: #### L 501.2450, L100.0100, L500.4050 ####[facility] [address] [place], [address] GAP 12 Normal 5-15 [facility] Comment on above: Performed By: #### L 501.2450, L100.0100, L500.4050 ####[facility] [address] [place], [address] GFR/1.73 sq M.predicted among non-blacks MDRD (S/P/Bld) [Vol rate/Area] 46 mL/min/{1.73_m2} Low >60 [facility] Comment on above: Result Comment: mL/m in/1.73m2 CKD-EPI Creatinine Equation (2020) Performed By: #### L 501.2450, L100.0100, L500.4050 ####[facility] [address] [place], [address] Globulin (S) [Mass/Vol] 3.2 g/dL Normal 2.2-4.2 [facility] Comment on above: Performed By: #### L 501.2450, L100.0100, L500.4050 ####[facility] [address] [place], [address] Glucose [Mass/Vol] 117 mg/dL High 70-99 [facility] Comment on above: Performed By: #### L 501.2450, L100.0100, L500.4050 ####[facility] [address] [place], [address] Potassium [Moles/Vol] 4.2 mmol/L Normal 3.3-5.1 [facility] Comment on above: Performed By: #### L 501.2450, L100.0100, L500.4050 ####[facility] [address] [place], [address] Sodium [Moles/Vol] 140 mmol/L Normal 133-145 [facility] Comment on above: Performed By: #### L 501.2450, L100.0100, L500.4050 ####[facility] [address] [place], [address] T PROT 7.4 g/dL Normal 5.9-8.4 [facility] Comment on above: Performed By: #### L 501.2450, L100.0100, L500.4050 ####[facility] [address] [place], [address] Urea nitrogen [Mass/Vol] 17 mg/dL Normal 4-19 [facility] Comment on above: Performed By: #### L 501.2450, L100.0100, L500.4050 ####[facility] [address] [place], [address] Emergency Department Summary on 11-14-2024 Emergency Department Summary Normal [facility] Eosinophil percentageOrdered By: Wyatt Amos on 11-14-2024 Eosinophils/100 WBC (Bld) 2.5 % 0-5 [facility] Erythrocyte [place] bod y detectionOrdered By: Wyatt Amos on 11-14-2024 [place] bodies LM Ql (Bld) [employer] [facility] Erythrocyte distribution wid th ratioOrdered By: Wyatt Amos on 11-14-2024 Erythrocyte distribution width (RBC) [Ratio] 13.8 % 11.6-14.6 [facility] Erythrocyte distribution wid th standard deviationOrdered By: Wyatt Mariscal on 11-14-2024 Erythrocyte distribution width (RBC) [Ratio] 47.9 fl High 35.1-43.9 [facility] Erythrocyte sickle cell dete ctionOrdered By: Wyatt Amos on 11-14-2024 Sickle cells LM Ql (Bld) [employer] [facility] Glomerular filtration rate ( GFR) estimation/1.73 sq m using serum, plasma, or whole bOrdered By: Wyatt Amos on 11-14-2024 GFR/1.73 sq M.predicted among non-blacks MDRD (S/P/Bld) [Vol rate/Area] 46 mL/min/{1.73_m2} Low >60 [facility] Hematocrit Auto (Bld) [Volum e fraction]Ordered By: Wyatt Amos on 11-14-2024 Hematocrit (Bld) [Volume fraction] 43.3 % 37-47 [facility] Hemoglobin measurementOrdere d By: Wyatt Amos on 11-14-2024 Hemoglobin (Bld) [Mass/Vol] 14.1 g/dL 12.0-15.0 [facility] Hypochromia LM Ql (Bld)Order ed By: Wyattlacie Amos on 11-14-2024 Hypochromia Ql (Bld) [employer] [facility] Immature granulocytes/100 WB C Auto (Bld)Ordered By: Wyattlacie mAos on 11-14-2024 Immature granulocytes/100 WBC (Bld) 0.200 % 0.0-0.9 [facility] Ketones Test strip Ql (U)Ord ered By: Wyatt Amos on 11-14-2024 Ketones Ql (U) Negative Negative [facility] Lipaseon 11-14-2024 Lipase [Catalytic activity/Vol] 24 U/L Normal 13-75 [facility] Comment on above: Result Comment: Mahin yoon note:LIPASE revised reference range effective 22.New Lipase methodology. Expected to produce lower valuesthan the previous assay method.NEW Reference Range: 13 - 75 U/L Performed By: #### L 501.2450, L100.0100, L500.4050 ####[facility] [address] [place], [address] MCV (mean corpuscular volume ) determinationOrdered By: Wyatt Amos on 11-14-2024 MCV (RBC) [Entitic vol] 95.0 fL 81-[address] [facility] Macrocytes detectionOrdered By: Wyatt Amos on 11-14-2024 Macrocytes Ql (Bld) [employer] [facility] Mean corpuscular hemoglobin (MCH) determinationOrdered By: Wyatt Amos on 11-14-2024 MCH (RBC) [Entitic mass] 30.9 pg 27.0-32.0 [facility] Monocyte percentageOrdered B y: Wyatt Amos on 11-14-2024 Monocytes/100 WBC (Bld) 7.6 % 0-[address] [facility] Mucus LM Ql (Urine sed)Order ed By: Wyatt Amos on 11-14-2024 Mucus Ql (Urine sed) 0 SEEN /hpf [facility] Neutrophil percentageOrdered By: Wyatt Amos on 11-14-2024 Neutrophils/100 WBC (Bld) 68.6 % 47-70 [facility] Nitrite Test strip Ql (U)Ord ered By: Wyatt Amos on 11-14-2024 Nitrite Ql (U) Negative Negative [facility] No Panel InformationOrdered By: Wyatt Amos on 11-14-2024 27 U/L <32 [facility] Nucleated red blood cell cou ntOrdered By: Wyatt Amos on 11-14-2024 Nucleated red blood cell count [employer] [facility] Pathologist review of result s (narrative result)Ordered By: Wyatt Amos on 11-14-2024 Pathologist review Jacobo (Unsp spec) [Interp] [employer] [facility] Platelet countOrdered By: Keshav Amos on 11-14-2024 Platelets (Bld) [#/Vol] 325 10*3/uL 150-450 [facility] Platelet estimateOrdered By: Wyatt Amos on 11-14-2024 Platelets LM Ql (Bld) [employer] [facility] Potassium measurement (mass/ volume)Ordered By: Wyatt Amos on 11-14-2024 Potassium (Unsp spec) [Mass/Vol] 4.2 mmol/L 3.3-5.1 [facility] Protein Test strip Ql (U)Ord ered By: Wyatt Amos on 11-14-2024 Protein Ql (U) TNP [facility] Protein, Urine (Random)on Protein (U) [Mass/Vol] 6.9 mg/dL Normal 0.0-12.0 [facility] Comment on above: Performed By: #### L 400.0001, L501.1930 ####[facility] [address] [place], [address] RBC Auto (Bld) [#/Vol]Ordere d By: Wyatt Amos on 11-14-2024 RBC (Bld) [#/Vol] 4.56 10*6/uL 4.2-5.4 [facility] Red blood cell stomatocyte d etectionOrdered By: Wyatt Amos on 11-14-2024 Stomatocytes LM Ql (Bld) [employer] [facility] Serum creatinine measurement (mass/volume)Ordered By: Wyatt Amos on 11-14-2024 Creatinine [Mass/Vol] 1.31 mg/dL High 0.70-1.20 [facility] Serum globulin measurementOr dered By: Wyatt Amos on 11-14-2024 Globulin (S) [Mass/Vol] 3.2 g/dL 2.2-4.[address] [facility] Serum glucose measurement (m ass/volume)Ordered By: Wyatt Amos on 11-14-2024 Glucose [Mass/Vol] 117 mg/dL High 70-99 [facility] Serum or plasma alanine obregon otransferase (ALT) measurementOrdered By: Wyatt Amos on 11-14-2024 ALT [Catalytic activity/Vol] 19 U/L <35 [facility] Serum or plasma albumin dane urement (mass/volume)Ordered By: Wyatt Mariscal on 11-14-2024 Albumin [Mass/Vol] 4.2 g/dL 3.4-4.8 [facility] Serum or plasma albumin/glob ulin mass ratioOrdered By: Wyatt Amos on 11-14-2024 Albumin/Globulin [Mass ratio] 1.3 {ratio} 0.9-2.4 [facility] Serum or plasma alkaline ruddy sphatase measurementOrdered By: Wyatt Amos on 11-14-2024 ALP [Catalytic activity/Vol] 79 U/L 35-104 [facility] Serum or plasma calcium dane urement (mass/volume)Ordered By: Wyatt Mariscal on 11-14-2024 Calcium [Mass/Vol] 9.7 mg/dL 7.6-11.0 [facility] Serum or plasma urea nitroge n measurement (mass/volume)Ordered By: Wyatt Amos on 11-14-2024 Urea nitrogen [Mass/Vol] 17 mg/dL 4-19 [facility] Sodium levelOrdered By: Nathanael Amos on 11-14-2024 Sodium [Moles/Vol] 140 mmol/L 133-145 [facility] Squamous epithelial cells de tection in urine sediment by light microscopyOrdered By: Wyatt Amos on 11-14-2024 Epithelial cells.squamous LM Ql (Urine sed) 0-5 SEEN /hpf 5-10 [facility] Teardrop cell detectionOrder ed By: Wyatt Amos on 11-14-2024 Dacrocytes LM Ql (Bld) [employer] [facility] Total cell countOrdered By: Wyatt Amos on 11-14-2024 Cells counted Molgen (Bld/Tiss) [#] [employer] [facility] Total proteinOrdered By: Arron Amos on 11-14-2024 Protein [Mass/Vol] 7.4 g/dL 5.9-8.4 [facility] Toxic leukocyte granulation detectionOrdered By: Wyatt Amos on 11-14-2024 Toxic granules LM Ql (Bld) [employer] [facility] Urinalysis, Completeon 11-14 EPI,SQUAMOUS 0-5 SEEN Normal 5-10 [facility] Comment on above: Order Comment: BRUCE CTOR TO SPECIFY Performed By: #### L 400.0001, L5.0 ####[facility] [address] [place], [address] BACTERIA 0 SEEN Normal None Seen [facility] Comment on above: Order Comment: BRUCE CTOR TO SPECIFY Performed By: #### L 400.0001, L501.0 ####[facility] [address] [place], [address] Mucus Ql (Urine sed) 0 SEEN Normal [facility] Comment on above: Order Comment: BRUCE CTOR TO SPECIFY Performed By: #### L 400.0001, L5.1929 ####[facility] [address] [place], [address] RBC 0 SEEN Normal 0-5 [facility] Comment on above: Order Comment: BRUCE CTOR TO SPECIFY Performed By: #### L 400.0001, L50 ####[facility] [address] [place], [address] WBC 0 SEEN Normal 0-5 [facility] Comment on above: Order Comment: BRUCE CTOR TO SPECIFY Performed By: #### L 400.0001, L5 ####[facility] [address] [place], [address] Urine clarityOrdered By: Arron Amos on 11-14-2024 Clarity (U) Clear Clear [facility] Urine color determinationOrd ered By: Wyatt Amos on 11-14-2024 Color (U) Yellow Yellow [facility] Urine glucose detectionOrder ed By: Wyatt Amos on 11-14-2024 Glucose Ql (U) Normal mg/dl Normal [facility] Urine leukocyte esterase det ection by dipstickOrdered By: Wyatt Amos on 11-14-2024 Leukocyte esterase Test strip Ql (U) Negative Negative [facility] Urine pHOrdered By: Wyatt Posada on 11-14-2024 pH (U) 6.0 [pH] 5.0 - 8.0 [facility] Urine protein measurement (m ass/volume)Ordered By: Wyatt Amos on 11-14-2024 Protein (U) [Mass/Vol] 6.9 mg/dL 0.0-12.0 [facility] Urine sediment bacteria coun t by microscopy (number/high power field)Ordered By: Wyatt Amos on 11-14-2024 Bacteria LM.HPF (Urine sed) [#/Area] 0 /[HPF] None Seen [facility] Urine specific gravity measu rementOrdered By: Wyatt Amos on 11-14-2024 Specific gravity (U) [Rel density] 1.015 1.002-1.030 [facility] Urine urobilinogen measureme ntOrdered By: Wyatt Amos on 11-14-2024 Urobilinogen Ql (U) Normal mg/dl Normal [facility] White blood cell (WBC) count Ordered By: Wyatt Amos on 11-14-2024 WBC (Bld) [#/Vol] 8.8 10*3/uL 4.4-11.0 [facility] White blood cell countOrdere d By: Wyatt Amos on 11-14-2024 White blood cell count 0 SEEN /hpf 0-[address] [facility] Whole blood erythrocyte morp hology identificationOrdered By: Wyatt Mariscal on 11-14-2024 RBC morphology finding Nom (Bld) [employer] [facility] Whole blood hypersegmented n eutrophils detection by light microscopyOrdered By: Wyatt Amos on 11-14-2024 Neutrophils.hypersegment ed LM Ql (Bld) [employer] [facility] Whole blood ovalocyte detect ion by light microscopyOrdered By: Wyatt chetan Mariscal on 11-14-2024 Ovalocytes LM Ql (Bld) [employer] [facility] Whole blood smudge cell dete ction by light microscopyOrdered By: [facility] Mar[facility] on 11-14-2024 Smudge cells LM Ql (Bld) [employer] [facility] Whole blood target cell dete ction by light microscopyOrdered By: [facility] Mariscal on 11-14-2024 Target cells LM Ql (Bld) [employer] [facility] Urine Cultureon 11-13-2024 URC Culture exhibits no growth. Normal [facility] Comment on above: Performed By: #### M 100.2200, L400.0001 ####[facility] [address] [place], [place], [id number] Absolute lymphocyte countOrd ered By: Randy Cabrales on 11-12-2024 Lymphocytes Auto (Unsp spec) [#/Vol] 2.81 10*3/uL 0.83-4.51 [facility] Anion gap in Serum or Plasma Ordered By: Randy Cabrales on 11-12-2024 Anion gap [Moles/Vol] 11 mmol/L 5-15 [facility] Automated lymphocyte count a s percentage of total leukocytesOrdered By: Randy Cabrales on 11-12-2024 Lymphocytes/100 WBC Auto (Unsp spec) 24.2 % 19-41 [facility] BUN/creatinine ratioOrdered By: Randy Cabrales on 11-12-2024 Urea nitrogen/Creatinine [Mass ratio] 12.8 mg/mg 10- [facility] Basic Metabolic Profile (BMP )on 11-12-2024 BUN/CRE 12.8 RATIO Normal - [facility] Comment on above: Performed By: #### L 500.2500, L100.0100 ####[facility] [address] [place], [place], [id number] Calcium [Mass/Vol] 9.4 mg/dL Normal 7.6-11.0 [facility] Comment on above: Performed By: #### L 500.2500, L100.0100 ####[facility] [address] [place], [address] Chloride [Moles/Vol] 105 mmol/L Normal 98-108 [facility] Comment on above: Performed By: #### L 500.2500, L100.0100 ####[facility] [address] [place], [address] CO2 [Moles/Vol] 23.7 mmol/L Normal 21.0-32.0 [facility] Comment on above: Performed By: #### L 500.2500, L100.0100 ####[facility] [address] [place], [address] Creatinine [Mass/Vol] 1.26 mg/dL High 0.70-1.20 [facility] Comment on above: Performed By: #### L 500.2500, L100.0100 ####[facility] [address] [place], [address] ECRCL 56.64 ml/min Normal 50-250 [facility] Comment on above: Performed By: #### L 500.2500, L100.0100 ####[facility] [address] [place], [address] GAP 11 Normal 5-15 [facility] Comment on above: Performed By: #### L 500.2500, L100.0100 ####[facility] [address] [place], [address] GFR/1.73 sq M.predicted among non-blacks MDRD (S/P/Bld) [Vol rate/Area] 48 mL/min/{1.73_m2} Low >60 [facility] Comment on above: Result Comment: mL/m in/1.73m2 CKD-EPI Creatinine Equation (2020) Performed By: #### L 500.2500, L100.0100 ####[facility] [address] [place], [address] Glucose [Mass/Vol] 136 mg/dL High 70-99 [facility] Comment on above: Performed By: #### L 500.2500, L100.0100 ####[facility] [address] [place], [address] Potassium [Moles/Vol] 3.8 mmol/L Normal 3.3-5.1 [facility] Comment on above: Performed By: #### L 500.2500, L100.0100 ####[facility] [address] [place], [address] Sodium [Moles/Vol] 140 mmol/L Normal 133-145 [facility] Comment on above: Performed By: #### L 500.2500, L100.0100 ####[facility] [address] [place], [address] Urea nitrogen [Mass/Vol] 16 mg/dL Normal 4-19 [facility] Comment on above: Performed By: #### L 500.2500, L100.0100 ####[facility] [address] [place], [address] Basophil percentageOrdered B y: Randy Cabrales on 11-12-2024 Basophils/100 WBC (Bld) 0.4 % 0-[address] [facility] Bilirubin Test strip Ql (U)O rdered By: Randy Cabrales on 11-12-2024 Bilirubin Ql (U) Negative Negative [facility] CBC W/Diff, Automatedon 04-2 Absolute Lymph 2.81 X10 3/uL Normal 0.83-4.51 [facility] Comment on above: Performed By: #### L 500.2500, L100.0100 ####[facility] [address] [place], [address] Absolute Neut 7.5 X10 3/uL Normal 2.0-7.7 [facility] Comment on above: Performed By: #### L 500.2500, L100.0100 ####[facility] [address] [place], [address] Basophils/100 WBC (Bld) 0.4 % Normal 0-[address] [facility] Comment on above: Performed By: #### L 500.2500, L100.0100 ####[facility] [address] [place], [address] Eosinophils/100 WBC (Bld) 2.8 % Normal 0-5 [facility] Comment on above: Performed By: #### L 500.2500, L100.0100 ####[facility] [address] [place], [address] Erythrocyte distribution width (RBC) [Ratio] 13.4 % Normal 11.6-14.6 [facility] Comment on above: Performed By: #### L 500.2500, L100.0100 ####[facility] [address] [place], [address] Hematocrit (Bld) [Volume fraction] 42.0 % Normal 37-47 [facility] Comment on above: Performed By: #### L 500.2500, L100.0100 ####[facility] [address] [place], [address] Hemoglobin (Bld) [Mass/Vol] 13.6 g/dL Normal 12.0-15.0 [facility] Comment on above: Performed By: #### L 500.2500, L100.0100 ####[facility] [address] [place], [address] IG% 0.300 Normal 0.0-0.9 [facility] Comment on above: Result Comment: IG% - Immature Granulocytes (promyelocytes, myelocytes andmetamyelocytes) > 1% indicates that a LEFT SHIFT is Present. Performed By: #### L 500.2500, L100.0100 ####[facility] [address] [place], [address] Lymphocytes/100 WBC (Bld) 24.2 % Normal 19-41 [facility] Comment on above: Performed By: #### L 500.2500, L100.0100 ####[facility] [address] [place], [address] MCH (RBC) [Entitic mass] 30.7 pg Normal 27.0-32.0 [facility] Comment on above: Performed By: #### L 500.2500, L100.0100 ####[facility] [address] [place], [address] MCHC (RBC) [Mass/Vol] 32.4 g/dL Normal 32-36 [facility] Comment on above: Performed By: #### L 500.2500, L100.0100 ####[facility] [address] [place], [address] MCV (RBC) [Entitic vol] 94.8 fL Normal 81-99 [facility] Comment on above: Performed By: #### L 500.2500, L100.0100 ####[facility] [address] [place], [address] Monocytes/100 WBC (Bld) 7.9 % Normal 0-10 [facility] Comment on above: Performed By: #### L 500.2500, L100.0100 ####[facility] [address] [place], [address] Neutrophils/100 WBC (Bld) 64.4 % Normal 47-70 [facility] Comment on above: Performed By: #### L 500.2500, L100.0100 ####[facility] [address] [place], [address] Nucleated RBC (Bld) [#/Vol] 0 10*3/uL Normal 0-5 [facility] Comment on above: Performed By: #### L 500.2500, L100.0100 ####[facility] [address] [place], [address] Platelet mean volume (Bld) [Entitic vol] 10.2 fL Normal 6.2-12.0 [facility] Comment on above: Performed By: #### L 500.2500, L100.0100 ####[facility] [address] [place], [address] Platelets (Bld) [#/Vol] 325 10*3/uL Normal 150-450 [facility] Comment on above: Performed By: #### L 500.2500, L100.0100 ####[facility] [address] [place], [address] RBC (Bld) [#/Vol] 4.43 10*6/uL Normal 4.2-5.4 [facility] Comment on above: Performed By: #### L 500.2500, L100.0100 ####[facility] [address] [place], [address] RDW SD 47.3 fl High 35.1-43.9 [facility] Comment on above: Performed By: #### L 500.2500, L100.0100 ####[facility] [address] [place], [address] WBC (Bld) [#/Vol] 11.6 10*3/uL High 4.4-11.0 [facility] Comment on above: Performed By: #### L 500.2500, L100.0100 ####[facility] [address] [place], [address] Carbon dioxide, total [Moles /volume] in Central venous bloodOrdered By: Randy Cabrales on 11-12-2024 CO2 [Moles/Vol] 23.7 mmol/L 21.0-32.0 [facility] Chloride assayOrdered By: Garry Cabrales on 11-12-2024 Chloride [Moles/Vol] 105 mmol/L 98-108 [facility] Emergency Department Summary on 11-12-2024 Emergency Department Summary Normal [facility] Eosinophil percentageOrdered By: Randy Cabrales on 11-12-2024 Eosinophils/100 WBC (Bld) 2.8 % 0-5 [facility] Erythrocyte distribution wid th ratioOrdered By: Randy Cabrales on 11-12-2024 Erythrocyte distribution width (RBC) [Ratio] 13.4 % 11.6-14.6 [facility] Erythrocyte distribution wid th standard deviationOrdered By: Randy Cabrales on 11-12-2024 Erythrocyte distribution width (RBC) [Ratio] 47.3 fl High 35.1-43.9 [facility] Glomerular filtration rate ( GFR) estimation/1.73 sq m using serum, plasma, or whole bOrdered By: Randy Cabrales on 11-12-2024 GFR/1.73 sq M.predicted among non-blacks MDRD (S/P/Bld) [Vol rate/Area] 48 mL/min/{1.73_m2} Low >60 [facility] Hematocrit Auto (Bld) [Volum e fraction]Ordered By: Randy Cabrales on 11-12-2024 Hematocrit (Bld) [Volume fraction] 42.0 % 37-47 [facility] Hemoglobin measurementOrdere d By: Randy Cabrales on 11-12-2024 Hemoglobin (Bld) [Mass/Vol] 13.6 g/dL 12.0-15.0 [facility] Immature granulocytes/100 WB C Auto (Bld)Ordered By: Randy Cabrales on 11-12-2024 Immature granulocytes/100 WBC (Bld) 0.300 % 0.0-0.9 [facility] Ketones Test strip Ql (U)Ord ered By: Randy Cabrales on 11-12-2024 Ketones Ql (U) Negative Negative [facility] MCV (mean corpuscular volume ) determinationOrdered By: Randy Cabrales on 11-12-2024 MCV (RBC) [Entitic vol] 94.8 fL 81-[address] [facility] Mean corpuscular hemoglobin (MCH) determinationOrdered By: Randy Cabrales on 11-12-2024 MCH (RBC) [Entitic mass] 30.7 pg 27.0-32.0 [facility] Monocyte percentageOrdered B y: Randy Cabrales on 11-12-2024 Monocytes/100 WBC (Bld) 7.9 % 0-[address] [facility] Mucus LM Ql (Urine sed)Order ed By: Randy Cabrales on 11-12-2024 Mucus Ql (Urine sed) 0 SEEN /hpf [facility] Neutrophil percentageOrdered By: aRndy Cabrales on 11-12-2024 Neutrophils/100 WBC (Bld) 64.4 % 47-70 [facility] Nitrite Test strip Ql (U)Ord ered By: Randy Cabrales on 11-12-2024 Nitrite Ql (U) Negative Negative [facility] Platelet countOrdered By: Garry Cabrales on 11-12-2024 Platelets (Bld) [#/Vol] 325 10*3/uL 150-450 [facility] Potassium measurement (mass/ volume)Ordered By: Randy Cabrales on 11-12-2024 Potassium (Unsp spec) [Mass/Vol] 3.8 mmol/L 3.3-5.1 [facility] Protein Test strip Ql (U)Ord ered By: Randy Cabrales on 11-12-2024 Protein Ql (U) 30 mg/dl High Negative [facility] RBC Auto (Bld) [#/Vol]Ordere d By: Randy Cabrales on 11-12-2024 RBC (Bld) [#/Vol] 4.43 10*6/uL 4.2-5.4 [facility] Serum creatinine measurement (mass/volume)Ordered By: Randy Cabrales on 11-12-2024 Creatinine [Mass/Vol] 1.26 mg/dL High 0.70-1.20 [facility] Serum glucose measurement (m ass/volume)Ordered By: Randy Cabrales on 11-12-2024 Glucose [Mass/Vol] 136 mg/dL High 70-99 [facility] Serum or plasma calcium dane urement (mass/volume)Ordered By: Randy Cabrales on 11-12-2024 Calcium [Mass/Vol] 9.4 mg/dL 7.6-11.0 [facility] Serum or plasma urea nitroge n measurement (mass/volume)Ordered By: Randy Cabrales on 11-12-2024 Urea nitrogen [Mass/Vol] 16 mg/dL 4-19 [facility] Sodium levelOrdered By: Randy Cabrales on 11-12-2024 Sodium [Moles/Vol] 140 mmol/L 133-145 [facility] Squamous epithelial cells de tection in urine sediment by light microscopyOrdered By: Randy Cabrales on 11-12-2024 Epithelial cells.squamous LM Ql (Urine sed) 0 SEEN /hpf 5-10 [facility] Urinalysis, Completeon 11-12 BACTERIA 0 SEEN Normal None Seen [facility] Comment on above: Order Comment: BRUCE CTOR TO SPECIFY Performed By: #### M 100.2200, L400.0001 ####[facility] [address] [place], [address] EPI,SQUAMOUS 0 SEEN Normal 5- [facility] Comment on above: Order Comment: BRUCE CTOR TO SPECIFY Performed By: #### M 100.2200, L400.0001 ####[facility] [address] [place], [address] Mucus Ql (Urine sed) 0 SEEN Normal [facility] Comment on above: Order Comment: BRUCE CTOR TO SPECIFY Performed By: #### M 100.2200, L400.0001 ####[facility] [address] [place], [address] RBC 0 SEEN Normal 0-5 [facility] Comment on above: Order Comment: BRUCE CTOR TO SPECIFY Performed By: #### M 100.2200, L400.0001 ####[facility] [address] [place], [address] WBC 0 SEEN Normal 0-5 [facility] Comment on above: Order Comment: BRUCE CTOR TO SPECIFY Performed By: #### M 100.2200, L400.0001 ####[facility] [address] [place], [address] Urine clarityOrdered By: Barrett Cabrales on 11-12-2024 Clarity (U) Clear Clear [facility] Urine color determinationOrd ered By: Randy Cabrales on 11-12-2024 Color (U) Yellow Yellow [facility] Urine cultureOrdered By: Barrett Cabrales on 11-12-2024 Bacteria identified Cx Nom (U) Culture exhibits no growth. [facility] Urine glucose detectionOrder ed By: Randy Cabrales on 11-12-2024 Glucose Ql (U) Normal mg/dl Normal [facility] Urine leukocyte esterase det ection by dipstickOrdered By: Randy Cabrales on 11-12-2024 Leukocyte esterase Test strip Ql (U) Negative Negative [facility] Urine pHOrdered By: Randy gale on 11-12-2024 pH (U) 5.0 [pH] 5.0 - 8.0 [facility] Urine sediment bacteria coun t by microscopy (number/high power field)Ordered By: Randy Cabrales on 11-12-2024 Bacteria LM.HPF (Urine sed) [#/Area] 0 /[HPF] None Seen [facility] Urine specific gravity measu rementOrdered By: Randy Cabrales on 11-12-2024 Specific gravity (U) [Rel density] 1.020 1.002-1.030 [facility] Urine urobilinogen measureme ntOrdered By: Randy Cabrales on 11-12-2024 Urobilinogen Ql (U) Normal mg/dl Normal [facility] White blood cell (WBC) count Ordered By: Randy Cabrales on 11-12-2024 WBC (Bld) [#/Vol] 11.6 10*3/uL High 4.4-11.0 [facility] White blood cell countOrdere d By: Randy Cabrales on 11-12-2024 White blood cell count 0 SEEN /hpf 0-[address] [facility] Culture, Blood (WB)on 2024 CUB Blood cultures x2, from two different sites No growth in 5 days. Normal [facility] Comment on above: Performed By: #### M 200.1000 ####[facility] [address] [place], [address] Bedside Glucoseon 11-07-2024 FINGERSTICK GLU 118 mg/dL High 74-106 [facility] Comment on above: Result Comment: BJ GEMENT OF PATIENT CARE PER NURSING PROTOCOL Performed By: #### L 501.080 ####[facility] [address] [place], [address] FINGERSTICK GLU 117 mg/dL High 74-106 [facility] Comment on above: Result Comment: BJ GEMENT OF PATIENT CARE PER NURSING PROTOCOL Performed By: #### L 501.080 ####[facility] [address] [facility] [address] FINGERSTICK GLU 100 mg/dL Normal -106 [facility] Comment on above: Result Comment: BJ GEMENT OF PATIENT CARE PER NURSING PROTOCOL Performed By: #### L 501.080 ####[facility] [address] [facility] [address] Discharge Instructionon 10-17 Discharge Instruction Normal [facility] Glucose measurement at [facility] deOrdered By: Azam Guillen on 11-07-2024 Glucose [Mass/Vol] 118 mg/dL High 74-106 [facility] Bedside Glucoseon 11-06-2024 FINGERSTICK GLU 99 mg/dL Normal -106 [facility] Comment on above: Result Comment: BJ GEMENT OF PATIENT CARE PER NURSING PROTOCOL Performed By: #### L 501.080 ####[facility] [address] [facility] [address] FINGERSTICK GLU 110 mg/dL High 74-106 [facility] Comment on above: Result Comment: BJ GEMENT OF PATIENT CARE PER NURSING PROTOCOL Performed By: #### L 501.080 ####[facility] [address] [place], [address] FINGERSTICK GLU 124 mg/dL High 74-106 [facility] Comment on above: Result Comment: BJ GEMENT OF PATIENT CARE PER NURSING PROTOCOL Performed By: #### L 501.080 ####[facility] [address] [place], [address] FINGERSTICK GLU 104 mg/dL Normal 74-106 [facility] Comment on above: Result Comment: BJ GEMENT OF PATIENT CARE PER NURSING PROTOCOL Performed By: #### L 501.080 ####[facility] [address] [place], [address] Urine Cultureon 11-06-2024 URC Normal [facility] Comment on above: Performed By: #### M 100.2200 ####[facility] [address] [place], [address] Absolute lymphocyte countOrd ered By: Lauren Vela on 11-05-2024 Lymphocytes Auto (Unsp spec) [#/Vol] 2.47 10*3/uL 0.83-4.51 [facility] Anion gap in Serum or Plasma Ordered By: Lauren Dane on 11-05-2024 Anion gap [Moles/Vol] 12 mmol/L 5-15 [facility] Automated lymphocyte count a s percentage of total leukocytesOrdered By: [facility] Dane on 11-05-2024 Lymphocytes/100 WBC Auto (Unsp spec) 31.5 % 19-41 [facility] BUN/creatinine ratioOrdered By: [facility] Dane on 11-05-2024 Urea nitrogen/Creatinine [Mass ratio] 10.6 mg/mg 10-20 [facility] Basophil percentageOrdered B y: Lauren Dane on 11-05-2024 Basophils/100 WBC (Bld) 0.3 % 0-1 [facility] Bedside Glucoseon 11-05-2024 FINGERSTICK GLU 101 mg/dL Normal 74-106 [facility] Comment on above: Result Comment: BJ GEMENT OF PATIENT CARE PER NURSING PROTOCOL Performed By: #### L 501.080 ####[facility] [address] [place], [address] FINGERSTICK GLU 111 mg/dL High 74-106 [facility] Comment on above: Result Comment: BJ GEMENT OF PATIENT CARE PER NURSING PROTOCOL Performed By: #### L 501.080 ####[facility] [address] [place], [address] FINGERSTICK GLU 120 mg/dL High 74-106 [facility] Comment on above: Result Comment: BJ GEMENT OF PATIENT CARE PER NURSING PROTOCOL Performed By: #### L 501.080 ####[facility] [address] [place], [address] FINGERSTICK GLU 103 mg/dL Normal 74-106 [facility] Comment on above: Result Comment: BJ GEMENT OF PATIENT CARE PER NURSING PROTOCOL Performed By: #### L 501.080 ####[facility] [address] [place], [address] Bilirubin, totalOrdered By: Lauren Vela on 11-05-2024 Bilirubin [Mass/Vol] 0.73 mg/dL 0.00-1.30 [facility] CBC W/Diff, Automatedon 10-17 Absolute Lymph 2.47 X10 3/uL Normal 0.83-4.51 [facility] Comment on above: Performed By: #### L 501.9985, L100.0100, L500.4050 ####[facility] [address] [place], [address] Absolute Neut 4.3 X10 3/uL Normal 2.0-7.7 [facility] Comment on above: Performed By: #### L 501.9985, L100.0100, L500.4050 ####[facility] [address] [place], [address] Basophils/100 WBC (Bld) 0.3 % Normal 0-[address] [facility] Comment on above: Performed By: #### L 501.9985, L100.0100, L500.4050 ####[facility] [address] [place], [address] Eosinophils/100 WBC (Bld) 4.9 % Normal 0-5 [facility] Comment on above: Performed By: #### L 501.9985, L100.0100, L500.4050 ####[facility] [address] [place], [address] Erythrocyte distribution width (RBC) [Ratio] 13.3 % Normal 11.6-14.6 [facility] Comment on above: Performed By: #### L 501.9985, L100.0100, L500.4050 ####[facility] [address] [place], [address] Hematocrit (Bld) [Volume fraction] 38.7 % Normal 37-47 [facility] Comment on above: Performed By: #### L 501.9985, L100.0100, L500.4050 ####[facility] [address] [place], [address] Hemoglobin (Bld) [Mass/Vol] 12.4 g/dL Normal 12.0-15.0 [facility] Comment on above: Performed By: #### L 501.9985, L100.0100, L500.4050 ####[facility] [address] [place], [address] IG% 0.300 Normal 0.0-0.9 [facility] Comment on above: Result Comment: IG% - Immature Granulocytes (promyelocytes, myelocytes andmetamyelocytes) > 1% indicates that a LEFT SHIFT is Present. Performed By: #### L 501.9985, L100.0100, L500.4050 ####[facility] [address] [place], [address] Lymphocytes/100 WBC (Bld) 31.5 % Normal 19-41 [facility] Comment on above: Performed By: #### L 501.9985, L100.0100, L500.4050 ####[facility] [address] [place], [address] MCH (RBC) [Entitic mass] 30.7 pg Normal 27.0-32.0 [facility] Comment on above: Performed By: #### L 501.9985, L100.0100, L500.4050 ####[facility] [address] [place], [address] MCHC (RBC) [Mass/Vol] 32.0 g/dL Normal 32-36 [facility] Comment on above: Performed By: #### L 501.9985, L100.0100, L500.4050 ####[facility] [address] [place], [address] MCV (RBC) [Entitic vol] 95.8 fL Normal 81-99 [facility] Comment on above: Performed By: #### L 501.9985, L100.0100, L500.4050 ####[facility] [address] [place], [address] Monocytes/100 WBC (Bld) 8.8 % Normal 0-10 [facility] Comment on above: Performed By: #### L 501.9985, L100.0100, L500.4050 ####[facility] [address] [place], [address] Neutrophils/100 WBC (Bld) 54.2 % Normal 47-70 [facility] Comment on above: Performed By: #### L 501.9985, L100.0100, L500.4050 ####[facility] [address] [place], [address] Nucleated RBC (Bld) [#/Vol] 0 10*3/uL Normal 0-5 [facility] Comment on above: Performed By: #### L 501.9985, L100.0100, L500.4050 ####[facility] [address] [place], [address] Platelet mean volume (Bld) [Entitic vol] 10.8 fL Normal 6.2-12.0 [facility] Comment on above: Performed By: #### L 501.9985, L100.0100, L500.4050 ####[facility] [address] [place], [address] Platelets (Bld) [#/Vol] 243 10*3/uL Normal 150-450 [facility] Comment on above: Performed By: #### L 501.9985, L100.0100, L500.4050 ####[facility] [address] [place], [address] RBC (Bld) [#/Vol] 4.04 10*6/uL Low 4.2-5.4 [facility] Comment on above: Performed By: #### L 501.9985, L100.0100, L500.4050 ####[facility] [address] [place], [address] RDW SD 47.1 fl High 35.1-43.9 [facility] Comment on above: Performed By: #### L 501.9985, L100.0100, L500.4050 ####[facility] [address] [place], [address] WBC (Bld) [#/Vol] 7.8 10*3/uL Normal 4.4-11.0 [facility] Comment on above: Performed By: #### L 501.9985, L100.0100, L500.4050 ####[facility] [address] [place], [address] Carbon dioxide, total [Moles /volume] in Central venous bloodOrdered By: Lauren Vela on 11-05-2024 CO2 [Moles/Vol] 21.1 mmol/L 21.0-32.0 [facility] Chloride assayOrdered By: Nano Vela on 11-05-2024 Chloride [Moles/Vol] 107 mmol/L 98-108 [facility] Comprehensive Metabolic Prof ilon 11-05-2024 Albumin [Mass/Vol] 3.3 g/dL Low 3.4-4.8 [facility] Comment on above: Performed By: #### L 501.9985, L100.0100, L500.4050 ####[facility] [address] [place], [address] Albumin/Globulin [Mass ratio] 1.2 {ratio} Normal 0.9-2.4 [facility] Comment on above: Performed By: #### L 501.9985, L100.0100, L500.4050 ####[facility] [address] [place], [address] ALK PHOS 65 U/L Normal 35-104 [facility] Comment on above: Performed By: #### L 501.9985, L100.0100, L500.4050 ####[facility] [address] [place], [address] ALT [Catalytic activity/Vol] 12 U/L Normal <=34 [facility] Comment on above: Performed By: #### L 501.9985, L100.0100, L500.4050 ####[facility] [address] [place], [address] AST [Catalytic activity/Vol] 19 U/L Normal <=31 [facility] Comment on above: Performed By: #### L 501.9985, L100.0100, L500.4050 ####[facility] [address] [place], [address] Bilirubin [Mass/Vol] 0.73 mg/dL Normal 0.00-1.30 [facility] Comment on above: Performed By: #### L 501.9985, L100.0100, L500.4050 ####[facility] [address] [place], [address] BUN/CRE 10.6 RATIO Normal 10-20 [facility] Comment on above: Performed By: #### L 501.9985, L100.0100, L500.4050 ####[facility] [address] [place], [address] Calcium [Mass/Vol] 8.7 mg/dL Normal 7.6-11.0 [facility] Comment on above: Performed By: #### L 501.9985, L100.0100, L500.4050 ####[facility] [address] [place], [address] Chloride [Moles/Vol] 107 mmol/L Normal 98-108 [facility] Comment on above: Performed By: #### L 501.9985, L100.0100, L500.4050 ####[facility] [address] [place], [address] CO2 [Moles/Vol] 21.1 mmol/L Normal 21.0-32.0 [facility] Comment on above: Performed By: #### L 501.9985, L100.0100, L500.4050 ####[facility] [address] [place], [address] Creatinine [Mass/Vol] 1.37 mg/dL High 0.70-1.20 [facility] Comment on above: Performed By: #### L 501.9985, L100.0100, L500.4050 ####[facility] [address] [place], [address] ECRCL 50.91 ml/min Normal 50-250 [facility] Comment on above: Performed By: #### L 501.9985, L100.0100, L500.4050 ####[facility] [address] [place], [address] GAP 12 Normal 5-15 [facility] Comment on above: Performed By: #### L 501.9985, L100.0100, L500.4050 ####[facility] [address] [place], [address] GFR/1.73 sq M.predicted among non-blacks MDRD (S/P/Bld) [Vol rate/Area] 44 mL/min/{1.73_m2} Low >60 [facility] Comment on above: Result Comment: mL/m in/1.73m2 CKD-EPI Creatinine Equation (2020) Performed By: #### L 501.9985, L100.0100, L500.4050 ####[facility] [address] [place], [address] Globulin (S) [Mass/Vol] 2.7 g/dL Normal 2.2-4.2 [facility] Comment on above: Performed By: #### L 501.9985, L100.0100, L500.4050 ####[facility] [address] [place], [address] Glucose [Mass/Vol] 96 mg/dL Normal 70-99 [facility] Comment on above: Performed By: #### L 501.9985, L100.0100, L500.4050 ####[facility] [address] [place], [address] Potassium [Moles/Vol] 3.4 mmol/L Normal 3.3-5.1 [facility] Comment on above: Performed By: #### L 501.9985, L100.0100, L500.4050 ####[facility] [address] [place], [address] Sodium [Moles/Vol] 140 mmol/L Normal 133-145 [facility] Comment on above: Performed By: #### L 501.9985, L100.0100, L500.4050 ####[facility] [address] [place], [address] T PROT 6.0 g/dL Normal 5.9-8.4 [facility] Comment on above: Performed By: #### L 501.9985, L100.0100, L500.4050 ####[facility] [address] [place], [place], [address] Urea nitrogen [Mass/Vol] 15 mg/dL Normal 4-19 [facility] Comment on above: Performed By: #### L 501.9985, L100.0100, L500.4050 ####[facility] [address] [place], [address] Eosinophil percentageOrdered By: [facility] Dane on 11-05-2024 Eosinophils/100 WBC (Bld) 4.9 % 0-5 [facility] Erythrocyte distribution wid th ratioOrdered By: [facility] Dane on 11-05-2024 Erythrocyte distribution width (RBC) [Ratio] 13.3 % 11.6-14.6 [facility] Erythrocyte distribution wid th standard deviationOrdered By: [facility] Dane on 11-05-2024 Erythrocyte distribution width (RBC) [Ratio] 47.1 fl High 35.1-43.9 [facility] Glomerular filtration rate ( GFR) estimation/1.73 sq m using serum, plasma, or whole bOrdered By: [facility] Dane on 11-05-2024 GFR/1.73 sq M.predicted among non-blacks MDRD (S/P/Bld) [Vol rate/Area] 44 mL/min/{1.73_m2} Low >60 [facility] Hematocrit Auto (Bld) [Volum e fraction]Ordered By: Lauren Vela on 11-05-2024 Hematocrit (Bld) [Volume fraction] 38.7 % 37-47 [facility] Hemoglobin A1con 11-05-2024 HbA1c (Bld) [Mass fraction] 6.0 % High <=5.6 [facility] Comment on above: Result Comment: Norm al < 5.7 % Prediabetic 5.7 - 6.4 % Diabetic >or= 6.5 % Please note range changes. Performed By: #### L 501.9985, L100.0100, L500.4050 ####[facility] [address] [place], [address] Hemoglobin A1c percentageOrd ered By: Lauren Vela on 11-05-2024 HbA1c (Bld) [Mass fraction] 6.0 % High <5.7 [facility] Hemoglobin measurementOrdere d By: Lauren Vela on 11-05-2024 Hemoglobin (Bld) [Mass/Vol] 12.4 g/dL 12.0-15.0 [facility] Immature granulocytes/100 WB C Auto (Bld)Ordered By: Lauren Vela on 11-05-2024 Immature granulocytes/100 WBC (Bld) 0.300 % 0.0-0.9 [facility] MCV (mean corpuscular volume ) determinationOrdered By: Lauren Vela on 11-05-2024 MCV (RBC) [Entitic vol] 95.8 fL 81-[address] [facility] Mean corpuscular hemoglobin (MCH) determinationOrdered By: Lauren Dane on 11-05-2024 MCH (RBC) [Entitic mass] 30.7 pg 27.0-32.0 [facility] Monocyte percentageOrdered B y: Lauren Dane on 11-05-2024 Monocytes/100 WBC (Bld) 8.8 % 0-[address] [facility] Neutrophil percentageOrdered By: Dane on 11-05-2024 Neutrophils/100 WBC (Bld) 54.2 % 47-70 [facility] No Panel InformationOrdered By: Lauren Vela on 11-05-2024 19 U/L <32 [facility] Platelet countOrdered By: Nano Vela on 11-05-2024 Platelets (Bld) [#/Vol] 243 10*3/uL 150-450 [facility] Potassium measurement (mass/ volume)Ordered By: Lauren Vela on 11-05-2024 Potassium (Unsp spec) [Mass/Vol] 3.4 mmol/L 3.3-5.1 [facility] RBC Auto (Bld) [#/Vol]Ordere d By: Lauren Vela on 11-05-2024 RBC (Bld) [#/Vol] 4.04 10*6/uL Low 4.2-5.4 [facility] Serum creatinine measurement (mass/volume)Ordered By: Lauren Vela on 11-05-2024 Creatinine [Mass/Vol] 1.37 mg/dL High 0.70-1.20 [facility] Serum globulin measurementOr dered By: Laruen Vela on 11-05-2024 Globulin (S) [Mass/Vol] 2.7 g/dL 2.2-4.2 [facility] Serum glucose measurement (m ass/volume)Ordered By: Lauren Vela on 11-05-2024 Glucose [Mass/Vol] 96 mg/dL 70-99 [facility] Serum or plasma alanine obregon otransferase (ALT) measurementOrdered By: Lauren Vela on 11-05-2024 ALT [Catalytic activity/Vol] 12 U/L <35 [facility] Serum or plasma albumin dane urement (mass/volume)Ordered By: Lauren Vela on 11-05-2024 Albumin [Mass/Vol] 3.3 g/dL Low 3.4-4.8 [facility] Serum or plasma albumin/glob ulin mass ratioOrdered By: Lauren Vela on 11-05-2024 Albumin/Globulin [Mass ratio] 1.2 {ratio} 0.9-2.4 [facility] Serum or plasma alkaline ruddy sphatase measurementOrdered By: Lauren Vela on 11-05-2024 ALP [Catalytic activity/Vol] 65 U/L 35-104 [facility] Serum or plasma calcium dane urement (mass/volume)Ordered By: Lauren Vela on 11-05-2024 Calcium [Mass/Vol] 8.7 mg/dL 7.6-11.0 [facility] Serum or plasma urea nitroge n measurement (mass/volume)Ordered By: Lauren Vela on 11-05-2024 Urea nitrogen [Mass/Vol] 15 mg/dL 4-19 [facility] Sodium levelOrdered By: Margau mn Dane on 11-05-2024 Sodium [Moles/Vol] 140 mmol/L 133-145 [facility] Total proteinOrdered By: Marga umn Dane on 11-05-2024 Protein [Mass/Vol] 6.0 g/dL 5.9-8.4 [facility] White blood cell (WBC) count Ordered By: Lauren Vela on 11-05-2024 WBC (Bld) [#/Vol] 7.8 10*3/uL 4.4-11.0 [facility] Absolute neutrophil countOrd ered By: Rebecca De Santiago on 11-04-2024 Neutrophils (Bld) [#/Vol] 6.9 10*3/uL 2.0-7.7 [facility] Anion gap in Serum or Plasma Ordered By: Rebecca De Santiago on 11-04-2024 Anion gap [Moles/Vol] 11 mmol/L 5-15 [facility] BUN/creatinine ratioOrdered By: Rebecca De Santiago on 11-04-2024 Urea nitrogen/Creatinine [Mass ratio] 8.9 mg/mg Low - [facility] Basic Metabolic Profile (BMP )on 11-04-2024 BUN/CRE 8.9 RATIO Low 05-06 [facility] Comment on above: Performed By: #### L 500.2500, L100.0100 ####[facility] [address] [place], [address] Calcium [Mass/Vol] 9.3 mg/dL Normal 7.6-11.0 [facility] Comment on above: Performed By: #### L 500.2500, L100.0100 ####[facility] [address] [place], [address] Chloride [Moles/Vol] 105 mmol/L Normal 98-108 [facility] Comment on above: Performed By: #### L 500.2500, L100.0100 ####[facility] [address] [place], [address] CO2 [Moles/Vol] 26.2 mmol/L Normal 21.0-32.0 [facility] Comment on above: Performed By: #### L 500.2500, L100.0100 ####[facility] [address] [place], [address] Creatinine [Mass/Vol] 1.48 mg/dL High 0.70-1.20 [facility] Comment on above: Performed By: #### L 500.2500, L100.0100 ####[facility] [address] [place], [address] ECRCL 47.80 ml/min Low 50-250 [facility] Comment on above: Performed By: #### L 500.2500, L100.0100 ####[facility] [address] [place], [address] GAP 11 Normal 5-15 [facility] Comment on above: Performed By: #### L 500.2500, L100.0100 ####[facility] [address] [place], [address] GFR/1.73 sq M.predicted among non-blacks MDRD (S/P/Bld) [Vol rate/Area] 40 mL/min/{1.73_m2} Low >60 [facility] Comment on above: Result Comment: mL/m in/1.73m2 CKD-EPI Creatinine Equation (2020) Performed By: #### L 500.2500, L100.0100 ####[facility] [address] [place], [address] Glucose [Mass/Vol] 117 mg/dL High 70-99 [facility] Comment on above: Performed By: #### L 500.2500, L100.0100 ####[facility] [address] [place], [address] Potassium [Moles/Vol] 3.7 mmol/L Normal 3.3-5.1 [facility] Comment on above: Performed By: #### L 500.2500, L100.0100 ####[facility] [address] [place], [address] Sodium [Moles/Vol] 142 mmol/L Normal 133-145 [facility] Comment on above: Performed By: #### L 500.2500, L100.0100 ####[facility] [address] [place], [address] Urea nitrogen [Mass/Vol] 13 mg/dL Normal 4-19 [facility] Comment on above: Performed By: #### L 500.2500, L100.0100 ####[facility] [address] [place], [address] Basophil percentageOrdered B y: Rebecca De Santiago on 11-04-2024 Basophils/100 WBC (Bld) 0.2 % 0-[address] [facility] Bedside Glucoseon 11-04-2024 FINGERSTICK GLU 114 mg/dL High 74-106 [facility] Comment on above: Result Comment: BJ GEMENT OF PATIENT CARE PER NURSING PROTOCOL Performed By: #### L 501.080 ####[facility] [address] [place], [address] FINGERSTICK GLU 94 mg/dL Normal 74-106 [facility] Comment on above: Result Comment: BJ GEMENT OF PATIENT CARE PER NURSING PROTOCOL Performed By: #### L 501.080 ####[facility] [address] [place], [address] Bilirubin Test strip Ql (U)O rdered By: Rebecca De Santiago on 11-04-2024 Bilirubin Ql (U) Negative Negative [facility] Blood cultureOrdered By: Issa Chapin on 11-04-2024 Bacteria identified Cx Nom (Bld) No growth in 5 days. [facility] Bacteria identified Cx Nom (Bld) No growth in 5 days. [facility] CBC W/Diff, Automatedon - Absolute Lymph 1.90 X10 3/uL Normal 0.83-4.51 [facility] Comment on above: Performed By: #### L 500.2500, L100.0100 ####[facility] [address] [place], [address] Absolute Neut 6.9 X10 3/uL Normal 2.0-7.7 [facility] Comment on above: Performed By: #### L 500.2500, L100.0100 ####[facility] [address] [place], [address] Basophils/100 WBC (Bld) 0.2 % Normal 0-[address] [facility] Comment on above: Performed By: #### L 500.2500, L100.0100 ####[facility] [address] [place], [address] Eosinophils/100 WBC (Bld) 2.9 % Normal 0-5 [facility] Comment on above: Performed By: #### L 500.2500, L100.0100 ####[facility] [address] [place], [address] Erythrocyte distribution width (RBC) [Ratio] 13.2 % Normal 11.6-14.6 [facility] Comment on above: Performed By: #### L 500.2500, L100.0100 ####[facility] [address] [place], [address] Hematocrit (Bld) [Volume fraction] 43.9 % Normal 37-47 [facility] Comment on above: Performed By: #### L 500.2500, L100.0100 ####[facility] [address] [place], [address] Hemoglobin (Bld) [Mass/Vol] 14.4 g/dL Normal 12.0-15.0 [facility] Comment on above: Performed By: #### L 500.2500, L100.0100 ####[facility] [address] [place], [address] IG% 0.200 Normal 0.0-0.9 [facility] Comment on above: Result Comment: IG% - Immature Granulocytes (promyelocytes, myelocytes andmetamyelocytes) > 1% indicates that a LEFT SHIFT is Present. Performed By: #### L 500.2500, L100.0100 ####[facility] [address] [place], [address] Lymphocytes/100 WBC (Bld) 19.2 % Normal 19-41 [facility] Comment on above: Performed By: #### L 500.2500, L100.0100 ####[facility] [address] [place], [address] MCH (RBC) [Entitic mass] 31.2 pg Normal 27.0-32.0 [facility] Comment on above: Performed By: #### L 500.2500, L100.0100 ####[facility] [address] [place], [address] MCHC (RBC) [Mass/Vol] 32.8 g/dL Normal 32-36 [facility] Comment on above: Performed By: #### L 500.2500, L100.0100 ####[facility] [address] [place], [address] MCV (RBC) [Entitic vol] 95.0 fL Normal 81-99 [facility] Comment on above: Performed By: #### L 500.2500, L100.0100 ####[facility] [address] [place], [address] Monocytes/100 WBC (Bld) 7.3 % Normal 0-10 [facility] Comment on above: Performed By: #### L 500.2500, L100.0100 ####[facility] [address] [place], [address] Neutrophils/100 WBC (Bld) 70.2 % High 47-70 [facility] Comment on above: Performed By: #### L 500.2500, L100.0100 ####[facility] [address] [place], [address] Nucleated RBC (Bld) [#/Vol] 0 10*3/uL Normal 0-5 [facility] Comment on above: Performed By: #### L 500.2500, L100.0100 ####[facility] [address] [place], [address] Platelet mean volume (Bld) [Entitic vol] 10.3 fL Normal 6.2-12.0 [facility] Comment on above: Performed By: #### L 500.2500, L100.0100 ####[facility] [address] [place], [address] Platelets (Bld) [#/Vol] 261 10*3/uL Normal 150-450 [facility] Comment on above: Performed By: #### L 500.2500, L100.0100 ####[facility] [address] [place], [address] RBC (Bld) [#/Vol] 4.62 10*6/uL Normal 4.2-5.4 [facility] Comment on above: Performed By: #### L 500.2500, L100.0100 ####[facility] [address] [place], [address] RDW SD 46.8 fl High 35.1-43.9 [facility] Comment on above: Performed By: #### L 500.2500, L100.0100 ####[facility] [address] [place], [address] WBC (Bld) [#/Vol] 9.9 10*3/uL Normal 4.4-11.0 [facility] Comment on above: Performed By: #### L 500.2500, L100.0100 ####[facility] [address] [place], [address] Carbon dioxide, total [Moles /volume] in Central venous bloodOrdered By: Rebecca De Santiago on 11-04-2024 CO2 [Moles/Vol] 26.2 mmol/L 21.0-32.0 [facility] Chloride assayOrdered By: Latisha De Santiago on 11-04-2024 Chloride [Moles/Vol] 105 mmol/L 98-108 [facility] Emergency Department Summary on 11-04-2024 Emergency Department Summary Normal [facility] Eosinophil percentageOrdered By: Rebecca De Santiago on 11-04-2024 Eosinophils/100 WBC (Bld) 2.9 % 0-5 [facility] Epithelial cells.squamous LM Ql (Urine sed)Ordered By: Rebecca De Santiago on 11-04-2024 Epithelial cells.squamous LM.HPF (Urine sed) [#/Area] 0 /[HPF] 5-10 [facility] Erythrocyte distribution wid th (RBC) [Ratio]Ordered By: Rebecca De Santiago on 11-04-2024 Erythrocyte distribution width (RBC) [Entitic vol] 46.8 fL High 35.1-43.9 [facility] Erythrocyte distribution wid th ratioOrdered By: Rebecca De Santiago on 11-04-2024 Erythrocyte distribution width (RBC) [Ratio] 13.2 % 11.6-14.6 [facility] Estimation of creatinine julee aranceOrdered By: Rebecca De Santiago on 11-04-2024 Estimated Creatinine Clearance Calc 47.80 ml/min Low 50-250 [facility] GFR/1.73 sq M.predicted yu g non-blacks MDRD (S/P/Bld) [Vol rate/Area]Ordered By: Rebecca De Santiago on 11-04-2024 Estimated GFR (MDRD) Non-Af Amer 40 Low >60 [facility] Comment on above: mL/min/1.73m2 CKD-EP I Creatinine Equation (2020) Glucose Ql (U)Ordered By: Latisha De Santiago on 11-04-2024 Urine Glucose (UA) Normal mg/dl Normal [facility] H AND P Exam - Hospitaliston 11-04-2024 H&P Exam - Hospitalist Normal [facility] Hematocrit Auto (Bld) [Volum e fraction]Ordered By: Rebecca De Santiago on 11-04-2024 Hematocrit (Bld) [Volume fraction] 43.9 % 37-47 [facility] Hemoglobin measurementOrdere d By: Rebecca De Santiago on 11-04-2024 Hemoglobin (Bld) [Mass/Vol] 14.4 g/dL 12.0-15.0 [facility] Immature granulocytes/100 WB C Auto (Bld)Ordered By: Rebecca De Santiago on 11-04-2024 Immature granulocytes/100 WBC (Bld) 0.200 % 0.0-0.9 [facility] Comment on above: IG% - Immature Granu locytes (promyelocytes, myelocytes and metamyelocytes) > 1% indicates that a LEFT SHIFT is Present. Ketones Test strip Ql (U)Ord ered By: Rebecca De Santiago on 11-04-2024 Ketones Ql (U) Negative Negative [facility] Lymphocytes Auto (Unsp spec) [#/Vol]Ordered By: Rebecca De Santiago on 11-04-2024 Lymphocytes (Bld) [#/Vol] 1.90 10*3/uL 0.83-4.51 [facility] Lymphocytes/100 WBC Auto (Un sp spec)Ordered By: Rebecca De Santiago on 11-04-2024 Lymphocytes/100 WBC (Bld) 19.2 % 19-41 [facility] MCV (mean corpuscular volume ) determinationOrdered By: Rebecca De Santiago on 11-04-2024 MCV (RBC) [Entitic vol] 95.0 fL 81-[address] [facility] Magnesiumon 11-04-2024 Magnesium [Mass/Vol] 1.9 mg/dL Normal 1.5-2.2 [facility] Comment on above: Order Comment: Comme nts: May add to ED labsComments: may add to ED labs Performed By: #### L 501.2300, L501.5200 ####[facility] [address] [place], [address] Magnesium (Unsp spec) [Mass/ Vol]Ordered By: Lauren Vela on 11-04-2024 Magnesium [Mass/Vol] 1.9 mg/dL 1.5-2.2 [facility] Magnesium measurement (mass/ volume)Ordered By: Lauren Vela on 11-04-2024 Magnesium (Unsp spec) [Mass/Vol] 1.9 mg/dL 1.5-2.2 [facility] Mean corpuscular hemoglobin (MCH) determinationOrdered By: Rebecca De Santiago on 11-04-2024 MCH (RBC) [Entitic mass] 31.2 pg 27.0-32.0 [facility] Mean corpuscular hemoglobin concentration (MCHC) determinationOrdered By: Rebecca De Santiago on 11-04-2024 MCHC (RBC) [Mass/Vol] 32.8 g/dL 32-36 [facility] Mean platelet volume determi nationOrdered By: Rebecca De Santiago on 11-04-2024 Platelet mean volume (Bld) [Entitic vol] 10.3 fL 6.2-12.0 [facility] Microscopic analysis of urin e for red blood cells (RBC)Ordered By: Rebecca De Santiago on 11-04-2024 Urine RBC 0 SEEN /hpf 0-5 [facility] Monocyte percentageOrdered B y: Rebecca De Santiago on 11-04-2024 Monocytes/100 WBC (Bld) 7.3 % 0-[address] [facility] Mucus LM Ql (Urine sed)Order ed By: Rebecca De Santiago on 11-04-2024 Mucus Ql (Urine sed) 0 SEEN /hpf [facility] Neutrophil percentageOrdered By: Rebecca De Santiago on 11-04-2024 Neutrophils/100 WBC (Bld) 70.2 % High 47-70 [facility] Nitrite Test strip Ql (U)Ord ered By: Rebecca De Santiago on 11-04-2024 Nitrite Ql (U) Positive High Negative [facility] Nucleated red blood cell per centageOrdered By: Rebecca De Santiago on 11-04-2024 Nucleated RBC/100 WBC (Bld) [Ratio] 0 % 0-5 [facility] Phosphoruson 11-04-2024 Phosphate [Mass/Vol] 4.0 mg/dL Normal 2.7-4.5 [facility] Comment on above: Order Comment: Comme nts: May add to ED labsComments: may add to ED labs Performed By: #### L 501.2300, L501.5200 ####[facility] [address] [place], [place], [id number] Platelet countOrdered By: Latisha De Santiago on 11-04-2024 Platelets (Bld) [#/Vol] 261 10*3/uL 150-450 [facility] Potassium (Unsp spec) [Mass/ Vol]Ordered By: Rebecca De Santiago on 11-04-2024 Potassium [Moles/Vol] 3.7 mmol/L 3.3-5.1 [facility] Protein Test strip Ql (U)Ord ered By: Rebecca De Santiago on 11-04-2024 Protein Ql (U) 15 mg/dl High Negative [facility] RBC Auto (Bld) [#/Vol]Ordere d By: Rebecca De Santiago on 11-04-2024 RBC (Bld) [#/Vol] 4.62 10*6/uL 4.2-5.4 [facility] Serum creatinine measurement (mass/volume)Ordered By: Rebecca De Santiago on 11-04-2024 Creatinine [Mass/Vol] 1.48 mg/dL High 0.70-1.20 [facility] Serum glucose measurement (m ass/volume)Ordered By: Rebecca De Santiago on 11-04-2024 Glucose [Mass/Vol] 117 mg/dL High 70-99 [facility] Serum or plasma calcium dane urement (mass/volume)Ordered By: Rebecca De Santiago on 11-04-2024 Calcium [Mass/Vol] 9.3 mg/dL 7.6-11.0 [facility] Serum or plasma urea nitroge n measurement (mass/volume)Ordered By: Rebecca De Santiago on 11-04-2024 Urea nitrogen [Mass/Vol] 13 mg/dL 4-19 [facility] Serum phosphorus measurement Ordered By: Lauren Vela on 11-04-2024 Phosphorus Level 4.0 mg/dL 2.7-4.5 [facility] Sodium levelOrdered By: Sergio De Santiago on 11-04-2024 Sodium [Moles/Vol] 142 mmol/L 133-145 [facility] Squamous epithelial cells de tection in urine sediment by light microscopyOrdered By: Rebecca De Santiago on 11-04-2024 Epithelial cells.squamous LM Ql (Urine sed) 0 SEEN /hpf 5-10 [facility] Urinalysis, Completeon 11-04 BACTERIA 3+ /hpf Normal None Seen [facility] Comment on above: Order Comment: JASON TER SPECIMEN Performed By: #### L 400.0001 ####[facility] [address] [place], [address] WBC 25-50 SEEN Normal 0-5 [facility] Comment on above: Order Comment: JASON TER SPECIMEN Performed By: #### L 400.0001 ####[facility] [address] [place], [address] EPI,SQUAMOUS 0 SEEN Normal 5-10 [facility] Comment on above: Order Comment: JASON TER SPECIMEN Performed By: #### L 400.0001 ####[facility] [address] [place], [address] Mucus Ql (Urine sed) 0 SEEN Normal [facility] Comment on above: Order Comment: JASON TER SPECIMEN Performed By: #### L 400.0001 ####[facility] [address] [place], [address] RBC 0 SEEN Normal 0-5 [facility] Comment on above: Order Comment: JASON TER SPECIMEN Performed By: #### L 400.0001 ####[facility] [address] [place], [address] Urine blood detectionOrdered By: Rebecca De Santiago on 11-04-2024 Urine Occult Blood 50 /ul High Negative [facility] Urine clarityOrdered By: Chinmay De Santiago on 11-04-2024 Clarity (U) Sl. Cloudy Clear [facility] Urine color determinationOrd ered By: Rebecca De Santiago on 11-04-2024 Color (U) Yellow Yellow [facility] Urine cultureOrdered By: Issa Chapin on 11-04-2024 Bacteria identified Cx Nom (U) Klebsiella pneumoniae sp pneum Abnormal [facility] Urine glucose detectionOrder ed By: Rebecca De Santiago on 11-04-2024 Glucose Ql (U) Normal mg/dl Normal [facility] Urine leukocyte esterase det ection by dipstickOrdered By: Rebecca De Santiago on 11-04-2024 Leukocyte esterase Test strip Ql (U) 500 /ul High Negative [facility] Urine pHOrdered By: Jayleen De Santiago on 11-04-2024 pH (U) 5.0 [pH] 5.0 - 8.0 [facility] Urine sediment bacteria coun t by microscopy (number/high power field)Ordered By: Rebecca De Santiago on 11-04-2024 Bacteria LM.HPF (Urine sed) [#/Area] 3 /[HPF] None Seen [facility] Urine specific gravity measu rementOrdered By: Rebecca De Santiago on 11-04-2024 Specific gravity (U) [Rel density] 1.020 1.002-1.030 [facility] Urine urobilinogen measureme ntOrdered By: Rebecca De Santiago on 11-04-2024 Urobilinogen Ql (U) 1 mg/dl High Normal [facility] Urobilinogen Ql (U)Ordered B y: Rebecca De Santiago on 11-04-2024 Urobilinogen (U) [Mass/Vol] 1 mg/dL High Normal [facility] White blood cell (WBC) count Ordered By: Rebecca De Santiago on 11-04-2024 WBC (Bld) [#/Vol] 9.9 10*3/uL 4.4-11.0 [facility] White blood cell countOrdere d By: Rebecca De Santiago on 11-04-2024 Urine WBC 25-50 SEEN /hpf 0-5 [facility] White blood cell count 25-50 SEEN /hpf 0-5 [facility] Bedside Glucoseon 09-21-2024 FINGERSTICK GLU 175 mg/dL High 74-106 [facility] Comment on above: Result Comment: BJ GEMENT OF PATIENT CARE PER NURSING PROTOCOL Performed By: #### L 501.080 ####[facility] [address] [place], [place], [id number] FINGERSTICK GLU 177 mg/dL High 74-106 [facility] Comment on above: Result Comment: BJ GEMENT OF PATIENT CARE PER NURSING PROTOCOL Performed By: #### L 501.080 ####[facility] [address] [place], [place], [id number] [facility] deOrdered By: Marco Jones on 09-21-2024 Bedside Glucose (Misc Panel) 175 mg/dL High 74-106 [facility] Comment on above: MANAGEMENT OF PATIEN T CARE PER NURSING PROTOCOL Glucose [Mass/Vol] 175 mg/dL High 74-106 [facility] Bedside Glucoseon 09-20-2024 FINGERSTICK GLU 216 mg/dL High -106 [facility] Comment on above: Result Comment: BJ GEMENT OF PATIENT CARE PER NURSING PROTOCOL Performed By: #### L 501.080 ####[facility] [address] [facility] [address] FINGERSTICK GLU 208 mg/dL High [address] [place] [address] Comment on above: Result Comment: BJ GEMENT OF PATIENT CARE PER NURSING PROTOCOL Performed By: #### L 501.080 ####[facility] [address] [place], [address] FINGERSTICK GLU 160 mg/dL [address] [facility] Comment on above: Result Comment: BJ GEMENT OF PATIENT CARE PER NURSING PROTOCOL Performed By: #### L 501.080 ####[facility] [address] [place], [address] FINGERSTICK GLU 119 mg/dL [address] [facility] Comment on above: Result Comment: BJ GEMENT OF PATIENT CARE PER NURSING PROTOCOL Performed By: #### L 501.080 ####[facility] [address] [place], [address] Absolute lymphocyte countOrd ered By: Guevara Collins on 09-19-2024 Lymphocytes Auto (Unsp spec) [#/Vol] 2.12 10*3/uL 0.83-4.51 [facility] Absolute neutrophil countOrd ered By: Guevara Collins on 09-19-2024 Neutrophils (Bld) [#/Vol] 14.6 10*3/uL High 2.0-7.7 [facility] Anion gap in Serum or Plasma Ordered By: Guevara oCllins on 09-19-2024 Anion gap [Moles/Vol] 11 mmol/L 5-15 [facility] Automated lymphocyte count a s percentage of total leukocytesOrdered By: Guevara Collins on 09-19-2024 Lymphocytes/100 WBC Auto (Unsp spec) 11.7 % Low 19-41 [facility] BUN/creatinine ratioOrdered By: Guevara Colilns on 09-19-2024 Urea nitrogen/Creatinine [Mass ratio] 29.4 mg/mg High 10- [facility] Basic Metabolic Profile (BMP )on 09-19-2024 BUN/CRE 29.4 RATIO High 10- [facility] Comment on above: Performed By: #### L 500.2500, L100.0100 ####[facility] [address] [place], [address] Calcium [Mass/Vol] 8.7 mg/dL Normal 7.6-11.0 [facility] Comment on above: Performed By: #### L 500.2500, L100.0100 ####[facility] [address] [place], [address] Chloride [Moles/Vol] 102 mmol/L Normal 98-108 [facility] Comment on above: Performed By: #### L 500.2500, L100.0100 ####[facility] [address] [place], [address] CO2 [Moles/Vol] 23.5 mmol/L Normal 21.0-32.0 [facility] Comment on above: Performed By: #### L 500.2500, L100.0100 ####[facility] [address] [place], [address] Creatinine [Mass/Vol] 1.43 mg/dL High 0.70-1.20 [facility] Comment on above: Performed By: #### L 500.2500, L100.0100 ####[facility] [address] [place], [address] ECRCL 50.72 ml/min Normal 50-250 [facility] Comment on above: Performed By: #### L 500.2500, L100.0100 ####[facility] [address] [place], [address] GAP 11 Normal 5-15 [facility] Comment on above: Performed By: #### L 500.2500, L100.0100 ####[facility] [address] [place], [address] GFR/1.73 sq M.predicted among non-blacks MDRD (S/P/Bld) [Vol rate/Area] 41 mL/min/{1.73_m2} Low >60 [facility] Comment on above: Result Comment: mL/m in/1.73m2 CKD-EPI Creatinine Equation (2020) Performed By: #### L 500.2500, L100.0100 ####[facility] [address] [place], [address] Glucose [Mass/Vol] 128 mg/dL High 70-99 [facility] Comment on above: Performed By: #### L 500.2500, L100.0100 ####[facility] [address] [place], [address] Potassium [Moles/Vol] 4.9 mmol/L Normal 3.3-5.1 [facility] Comment on above: Result Comment: Hemo lysis present, Results??could be affected.?? Performed By: #### L 500.2500, L100.0100 ####[facility] [address] [place], [address] Sodium [Moles/Vol] 136 mmol/L Normal 133-145 [facility] Comment on above: Performed By: #### L 500.2500, L100.0100 ####[facility] [address] [place], [address] Urea nitrogen [Mass/Vol] 42 mg/dL High 4-19 [facility] Comment on above: Performed By: #### L 500.2500, L100.0100 ####[facility] [address] [place], [address] Basophil percentageOrdered B y: Guevara Collins on 09-19-2024 Basophils/100 WBC (Bld) 0.2 % 0-[address] [facility] Bedside Glucoseon 09-19-2024 FINGERSTICK GLU 208 mg/dL High 74-106 [facility] Comment on above: Result Comment: BJ GEMENT OF PATIENT CARE PER NURSING PROTOCOL Performed By: #### L 501.080 ####[facility] [address] [place], [address] FINGERSTICK GLU 142 mg/dL High 74-106 [facility] Comment on above: Result Comment: BJ GEMENT OF PATIENT CARE PER NURSING PROTOCOL Performed By: #### L 501.080 ####[facility] [address] [place], [address] FINGERSTICK GLU 172 mg/dL High 74-106 [facility] Comment on above: Result Comment: BJ GEMENT OF PATIENT CARE PER NURSING PROTOCOL Performed By: #### L 501.080 ####[facility] [address] [place], [address] FINGERSTICK GLU 127 mg/dL High 74-106 [facility] Comment on above: Result Comment: BJ GEMENT OF PATIENT CARE PER NURSING PROTOCOL Performed By: #### L 501.080 ####[facility] [address] [place], [address] CBC W/Diff, Automatedon Absolute Lymph 2.12 X10 3/uL Normal 0.83-4.51 [facility] Comment on above: Performed By: #### L 500.2500, L100.0100 ####[facility] [address] [place], [address] Absolute Neut 14.6 X10 3/uL High 2.0-7.7 [facility] Comment on above: Performed By: #### L 500.2500, L100.0100 ####[facility] [address] [place], [address] Basophils/100 WBC (Bld) 0.2 % Normal 0-[address] [facility] Comment on above: Performed By: #### L 500.2500, L100.0100 ####[facility] [address] [place], [address] Eosinophils/100 WBC (Bld) 0.0 % Normal 0-5 [facility] Comment on above: Performed By: #### L 500.2500, L100.0100 ####[facility] [address] [place], [address] Erythrocyte distribution width (RBC) [Ratio] 13.0 % Normal 11.6-14.6 [facility] Comment on above: Performed By: #### L 500.2500, L100.0100 ####[facility] [address] [place], [address] Hematocrit (Bld) [Volume fraction] 42.3 % Normal 37-47 [facility] Comment on above: Performed By: #### L 500.2500, L100.0100 ####[facility] [address] [place], [address] Hemoglobin (Bld) [Mass/Vol] 14.1 g/dL Normal 12.0-15.0 [facility] Comment on above: Performed By: #### L 500.2500, L100.0100 ####[facility] [address] [place], [address] IG% 1.000 High 0.0-0.9 [facility] Comment on above: Result Comment: IG% - Immature Granulocytes (promyelocytes, myelocytes andmetamyelocytes) > 1% indicates that a LEFT SHIFT is Present. Performed By: #### L 500.2500, L100.0100 ####[facility] [address] [place], [address] Lymphocytes/100 WBC (Bld) 11.7 % Low 19-41 [facility] Comment on above: Performed By: #### L 500.2500, L100.0100 ####[facility] [address] [place], [address] MCH (RBC) [Entitic mass] 31.0 pg Normal 27.0-32.0 [facility] Comment on above: Performed By: #### L 500.2500, L100.0100 ####[facility] [address] [place], [address] MCHC (RBC) [Mass/Vol] 33.3 g/dL Normal 32-36 [facility] Comment on above: Performed By: #### L 500.2500, L100.0100 ####[facility] [address] [place], [address] MCV (RBC) [Entitic vol] 93.0 fL Normal 81-99 [facility] Comment on above: Performed By: #### L 500.2500, L100.0100 ####[facility] [address] [place], [address] Monocytes/100 WBC (Bld) 6.4 % Normal 0-10 [facility] Comment on above: Performed By: #### L 500.2500, L100.0100 ####[facility] [address] [place], [address] Neutrophils/100 WBC (Bld) 80.7 % High 47-70 [facility] Comment on above: Performed By: #### L 500.2500, L100.0100 ####[facility] [address] [place], [address] Nucleated RBC (Bld) [#/Vol] 0 10*3/uL Normal 0-5 [facility] Comment on above: Performed By: #### L 500.2500, L100.0100 ####[facility] [address] [place], [address] Platelet mean volume (Bld) [Entitic vol] 10.1 fL Normal 6.2-12.0 [facility] Comment on above: Performed By: #### L 500.2500, L100.0100 ####[facility] [address] [place], [address] Platelets (Bld) [#/Vol] 302 10*3/uL Normal 150-450 [facility] Comment on above: Performed By: #### L 500.2500, L100.0100 ####[facility] [address] [place], [address] RBC (Bld) [#/Vol] 4.55 10*6/uL Normal 4.2-5.4 [facility] Comment on above: Performed By: #### L 500.2500, L100.0100 ####[facility] [address] [place], [address] RDW SD 44.3 fl High 35.1-43.9 [facility] Comment on above: Performed By: #### L 500.2500, L100.0100 ####[facility] [address] [place], [address] WBC (Bld) [#/Vol] 18.1 10*3/uL High 4.4-11.0 [facility] Comment on above: Performed By: #### L 500.2500, L100.0100 ####[facility] [address] [place], [address] Carbon dioxide, total [Moles /volume] in Central venous bloodOrdered By: Guevara Collins on 09-19-2024 CO2 [Moles/Vol] 23.5 mmol/L 21.0-32.0 [facility] Chloride assayOrdered By: Latisha Collins on 09-19-2024 Chloride [Moles/Vol] 102 mmol/L 98-108 [facility] Eosinophil percentageOrdered By: Guevara Collins on 09-19-2024 Eosinophils/100 WBC (Bld) 0.0 % 0-5 [facility] Erythrocyte distribution wid th ratioOrdered By: Guevara Collins on 09-19-2024 Erythrocyte distribution width (RBC) [Ratio] 13.0 % 11.6-14.6 [facility] Erythrocyte distribution wid th standard deviationOrdered By: Guevara Collins on 09-19-2024 Erythrocyte distribution width (RBC) [Entitic vol] 44.3 fL High 35.1-43.9 [facility] Erythrocyte distribution width (RBC) [Ratio] 44.3 fl High 35.1-43.9 [facility] Estimation of creatinine julee aranceOrdered By: Guevara Collins on 09-19-2024 Estimated Creatinine Clearance Calc 50.72 ml/min 50-250 [facility] GFR/1.73 sq M.predicted yu g non-blacks MDRD (S/P/Bld) [Vol rate/Area]Ordered By: Guevara Collins on 09-19-2024 Estimated GFR (MDRD) Non-Af Amer 41 Low >60 [facility] Comment on above: mL/min/1.73m2 CKD-EP I Creatinine Equation (2020) Glomerular filtration rate ( GFR) estimation/1.73 sq m using serum, plasma, or whole bOrdered By: Guevara Collins on 09-19-2024 GFR/1.73 sq M.predicted among non-blacks MDRD (S/P/Bld) [Vol rate/Area] 41 mL/min/{1.73_m2} Low >60 [facility] Hematocrit Auto (Bld) [Volum e fraction]Ordered By: Guevara Collins on 09-19-2024 Hematocrit (Bld) [Volume fraction] 42.3 % 37-47 [facility] Hemoglobin measurementOrdere d By: Guevara Collins on 09-19-2024 Hemoglobin (Bld) [Mass/Vol] 14.1 g/dL 12.0-15.0 [facility] Immature granulocytes/100 WB C Auto (Bld)Ordered By: Guevara Collins on 09-19-2024 Immature granulocytes/100 WBC (Bld) 1.000 % High 0.0-0.9 [facility] Comment on above: IG% - Immature Granu locytes (promyelocytes, myelocytes and metamyelocytes) > 1% indicates that a LEFT SHIFT is Present. Lymphocytes Auto (Unsp spec) [#/Vol]Ordered By: Guevara Collins on 09-19-2024 Lymphocytes (Bld) [#/Vol] 2.12 10*3/uL 0.83-4.51 [facility] Lymphocytes/100 WBC Auto (Un sp spec)Ordered By: Guevara Collins on 09-19-2024 Lymphocytes/100 WBC (Bld) 11.7 % Low 19-41 [facility] MCV (mean corpuscular volume ) determinationOrdered By: Guevara Collins on 09-19-2024 MCV (RBC) [Entitic vol] 93.0 fL 81-[address] [facility] Mean corpuscular hemoglobin (MCH) determinationOrdered By: Guevara Collins on 09-19-2024 MCH (RBC) [Entitic mass] 31.0 pg 27.0-32.0 [facility] Mean corpuscular hemoglobin concentration (MCHC) determinationOrdered By: Guevara Collins on 09-19-2024 MCHC (RBC) [Mass/Vol] 33.3 g/dL 32-36 [facility] Mean platelet volume determi nationOrdered By: Guevara Collins on 09-19-2024 Platelet mean volume (Bld) [Entitic vol] 10.1 fL 6.2-12.0 [facility] Monocyte percentageOrdered B y: Guevara Collins on 09-19-2024 Monocytes/100 WBC (Bld) 6.4 % 0-[address] [facility] Neutrophil percentageOrdered By: Guevara Collins on 09-19-2024 Neutrophils/100 WBC (Bld) 80.7 % High 47-70 [facility] Nucleated red blood cell per centageOrdered By: Guevara Collins on 09-19-2024 Nucleated RBC/100 WBC (Bld) [Ratio] 0 % 0-5 [facility] Platelet countOrdered By: Latisha Collins on 09-19-2024 Platelets (Bld) [#/Vol] 302 10*3/uL 150-450 [facility] Potassium (Unsp spec) [Mass/ Vol]Ordered By: Guevara Collins on 09-19-2024 Potassium [Moles/Vol] 4.9 mmol/L 3.3-5.1 [facility] Comment on above: Hemolysis present, R esults could be affected. Potassium measurement (mass/ volume)Ordered By: Guevara Collins on 09-19-2024 Potassium (Unsp spec) [Mass/Vol] 4.9 mmol/L 3.3-5.1 [facility] RBC Auto (Bld) [#/Vol]Ordere d By: Guevara Collins on 09-19-2024 RBC (Bld) [#/Vol] 4.55 10*6/uL 4.2-5.4 [facility] Serum creatinine measurement (mass/volume)Ordered By: Guevara Collins on 09-19-2024 Creatinine [Mass/Vol] 1.43 mg/dL High 0.70-1.20 [facility] Serum glucose measurement (m ass/volume)Ordered By: Guevara Collins on 09-19-2024 Glucose [Mass/Vol] 128 mg/dL High 70-99 [facility] Serum or plasma calcium dane urement (mass/volume)Ordered By: Guevara Collins on 09-19-2024 Calcium [Mass/Vol] 8.7 mg/dL 7.6-11.0 [facility] Serum or plasma urea nitroge n measurement (mass/volume)Ordered By: Guevara Collins on 09-19-2024 Urea nitrogen [Mass/Vol] 42 mg/dL High 4-19 [facility] Sodium levelOrdered By: Krishna Collins on 09-19-2024 Sodium [Moles/Vol] 136 mmol/L 133-145 [facility] White blood cell (WBC) count Ordered By: Guevara Collins on 09-19-2024 WBC (Bld) [#/Vol] 18.1 10*3/uL High 4.4-11.0 [facility] Basic Metabolic Profile (BMP )on 09-18-2024 Anion gap [Moles/Vol] 12 mmol/L Normal 5-15 [facility] Comment on above: Performed By: #### L 500.2500 ####[facility] [address] [place], [address] BUN/CRE 30.9 RATIO High 10-20 [facility] Comment on above: Performed By: #### L 500.2500 ####[facility] [address] [place], [address] Calcium [Mass/Vol] 8.9 mg/dL Normal 7.6-11.0 [facility] Comment on above: Performed By: #### L 500.2500 ####[facility] [address] [place], [address] Chloride [Moles/Vol] 103 mmol/L Normal 96-108 [facility] Comment on above: Performed By: #### L 500.2500 ####[facility] [address] [place], [address] CO2 [Moles/Vol] 24.3 mmol/L Normal 22.0-29.0 [facility] Comment on above: Performed By: #### L 500.2500 ####[facility] [address] [place], [address] Creatinine [Mass/Vol] 1.39 mg/dL High 0.70-1.20 [facility] Comment on above: Performed By: #### L 500.2500 ####[facility] [address] [place], [address] ECRCL 52.18 ml/min Normal 50-250 [facility] Comment on above: Performed By: #### L 500.2500 ####[facility] [address] [place], [address] GFR/1.73 sq M.predicted among non-blacks MDRD (S/P/Bld) [Vol rate/Area] 43 mL/min/{1.73_m2} Low >60 [facility] Comment on above: Result Comment: mL/m in/1.73m2 CKD-EPI Creatinine Equation (2020) Performed By: #### L 500.2500 ####[facility] [address] [place], [address] Glucose [Mass/Vol] 124 mg/dL High 70-99 [facility] Comment on above: Performed By: #### L 500.2500 ####[facility] [address] [place], [address] Potassium [Moles/Vol] 4.5 mmol/L Normal 3.3-5.1 [facility] Comment on above: Performed By: #### L 500.2500 ####[facility] [address] [place], [address] Sodium [Moles/Vol] 139 mmol/L Normal 133-145 [facility] Comment on above: Performed By: #### L 500.2500 ####[facility] [address] [place], [address] Urea nitrogen [Mass/Vol] 43 mg/dL High 4-19 [facility] Comment on above: Performed By: #### L 500.2500 ####[facility] [address] [place], [address] Bedside Glucoseon 09-18-2024 FINGERSTICK GLU 185 mg/dL High 74-106 [facility] Comment on above: Result Comment: BJ ZENY OF PATIENT CARE PER NURSING PROTOCOL Performed By: #### L 501.080 ####[facility] [address] [place], [address] FINGERSTICK GLU 145 mg/dL High 74-106 [facility] Comment on above: Result Comment: BJ GEMENT OF PATIENT CARE PER NURSING PROTOCOL Performed By: #### L 501.080 ####[facility] [address] [place], [address] FINGERSTICK GLU 165 mg/dL High 74-106 [facility] Comment on above: Result Comment: Dext jose 50 GivenDr Orders FollowedSnack GivenMANAGEMENT OF PATIENT CARE PER NURSING PROTOCOL Performed By: #### L 501.080 ####[facility] [address] [place], [address] FINGERSTICK GLU 127 mg/dL High 74-106 [facility] Comment on above: Result Comment: BJ GEMENT OF PATIENT CARE PER NURSING PROTOCOL Performed By: #### L 501.080 ####[facility] [address] [place], [address] Chloride measurementOrdered By: Guevara Collins on 09-18-2024 Chloride [Moles/Vol] 103 mmol/L 96-108 [facility] Basic Metabolic Profile (BMP )on 09-17-2024 Anion gap [Moles/Vol] 13 mmol/L Normal 5-15 [facility] Comment on above: Performed By: #### L 500.2500 ####[facility] [address] [place], [address] BUN/CRE 30.4 RATIO High 10-20 [facility] Comment on above: Performed By: #### L 500.2500 ####[facility] [address] [place], [address] Calcium [Mass/Vol] 8.8 mg/dL Normal 7.6-11.0 [facility] Comment on above: Performed By: #### L 500.2500 ####[facility] [address] [place], [address] Chloride [Moles/Vol] 101 mmol/L Normal 96-108 [facility] Comment on above: Performed By: #### L 500.2500 ####[facility] [address] [place], [address] CO2 [Moles/Vol] 24.7 mmol/L Normal 22.0-29.0 [facility] Comment on above: Performed By: #### L 500.2500 ####[facility] [address] [place], [address] Creatinine [Mass/Vol] 1.41 mg/dL High 0.70-1.20 [facility] Comment on above: Performed By: #### L 500.2500 ####[facility] [address] [place], [address] ECRCL 51.44 ml/min Normal 50-250 [facility] Comment on above: Performed By: #### L 500.2500 ####[facility] [address] [place], [address] GFR/1.73 sq M.predicted among non-blacks MDRD (S/P/Bld) [Vol rate/Area] 42 mL/min/{1.73_m2} Low >60 [facility] Comment on above: Result Comment: mL/m in/1.73m2 CKD-EPI Creatinine Equation (2020) Performed By: #### L 500.2500 ####[facility] [address] [place], [address] Glucose [Mass/Vol] 131 mg/dL High 70-99 [facility] Comment on above: Performed By: #### L 500.2500 ####[facility] [address] [place], [address] Potassium [Moles/Vol] 4.2 mmol/L Normal 3.3-5.1 [facility] Comment on above: Result Comment: Hemo lysis present, Results??could be affected.?? Performed By: #### L 500.2500 ####[facility] [address] [place], [address] Sodium [Moles/Vol] 138 mmol/L Normal 133-145 [facility] Comment on above: Performed By: #### L 500.2500 ####[facility] [address] [place], [address] Urea nitrogen [Mass/Vol] 43 mg/dL High 4-19 [facility] Comment on above: Performed By: #### L 500.2500 ####[facility] [address] [place], [address] Bedside Glucoseon - FINGERSTICK GLU 156 mg/dL High 74-106 [facility] Comment on above: Result Comment: BJ GEMENT OF PATIENT CARE PER NURSING PROTOCOL Performed By: #### L 501.080 ####[facility] [address] [place], [address] FINGERSTICK GLU 238 mg/dL High 74-106 [facility] Comment on above: Result Comment: BJ GEMENT OF PATIENT CARE PER NURSING PROTOCOL Performed By: #### L 501.080 ####[facility] [address] [place], [address] FINGERSTICK GLU 144 mg/dL High 74-106 [facility] Comment on above: Result Comment: BJ GEMENT OF PATIENT CARE PER NURSING PROTOCOL Performed By: #### L 501.080 ####[facility] [address] [place], [address] FINGERSTICK GLU 136 mg/dL High 74-106 [facility] Comment on above: Result Comment: BJ GEMENT OF PATIENT CARE PER NURSING PROTOCOL Performed By: #### L 501.080 ####[facility] [address] [place], [address] CBC W/Diff, Automatedon 03-0 3-2025 Absolute Lymph 1.69 X10 3/uL Normal 0.83-4.51 [facility] Comment on above: Performed By: #### L 100.0100 ####[facility] [address] [place], [address] Absolute Neut 10.2 X10 3/uL High 2.0-7.7 [facility] Comment on above: Performed By: #### L 100.0100 ####[facility] [address] [place], [address] Basophils/100 WBC (Bld) 0.1 % Normal 0-[address] [facility] Comment on above: Performed By: #### L 100.0100 ####[facility] [address] [place], [address] Eosinophils/100 WBC (Bld) 0.0 % Normal 0-5 [facility] Comment on above: Performed By: #### L 100.0100 ####[facility] [address] [place], [address] Erythrocyte distribution width (RBC) [Ratio] 13.0 % Normal 11.6-14.6 [facility] Comment on above: Performed By: #### L 100.0100 ####[facility] [address] [place], [address] Hematocrit (Bld) [Volume fraction] 42.4 % Normal 37-47 [facility] Comment on above: Performed By: #### L 100.0100 ####[facility] [address] [place], [address] Hemoglobin (Bld) [Mass/Vol] 14.1 g/dL Normal 12.0-15.0 [facility] Comment on above: Performed By: #### L 100.0100 ####[facility] [address] [place], [address] IG% 0.500 Normal 0.0-0.9 [facility] Comment on above: Result Comment: IG% - Immature Granulocytes (promyelocytes, myelocytes andmetamyelocytes) > 1% indicates that a LEFT SHIFT is Present. Performed By: #### L 100.0100 ####[facility] [address] [place], [address] Lymphocytes/100 WBC (Bld) 13.2 % Low 19-41 [facility] Comment on above: Performed By: #### L 100.0100 ####[facility] [address] [place], [address] MCH (RBC) [Entitic mass] 31.1 pg Normal 27.0-32.0 [facility] Comment on above: Performed By: #### L 100.0100 ####[facility] [address] [place], [address] MCHC (RBC) [Mass/Vol] 33.3 g/dL Normal 32-36 [facility] Comment on above: Performed By: #### L 100.0100 ####[facility] [address] [place], [address] MCV (RBC) [Entitic vol] 93.6 fL Normal 81-[address] [facility] Comment on above: Performed By: #### L 100.0100 ####[facility] [address] [place], [address] Monocytes/100 WBC (Bld) 6.6 % Normal 0-[address] [facility] Comment on above: Performed By: #### L 100.0100 ####[facility] [address] [place], [address] Neutrophils/100 WBC (Bld) 79.6 % High 47-70 [facility] Comment on above: Performed By: #### L 100.0100 ####[facility] [address] [place], [address] Nucleated RBC (Bld) [#/Vol] 0 10*3/uL Normal 0-5 [facility] Comment on above: Performed By: #### L 100.0100 ####[facility] [address] [place], [address] Platelet mean volume (Bld) [Entitic vol] 10.6 fL Normal 6.2-12.0 [facility] Comment on above: Performed By: #### L 100.0100 ####[facility] [address] [place], [address] Platelets (Bld) [#/Vol] 291 10*3/uL Normal 150-450 [facility] Comment on above: Performed By: #### L 100.0100 ####[facility] [address] [place], [address] RBC (Bld) [#/Vol] 4.53 10*6/uL Normal 4.2-5.4 [facility] Comment on above: Performed By: #### L 100.0100 ####[facility] [address] [place], [address] RDW SD 45.1 fl High 35.1-43.9 [facility] Comment on above: Performed By: #### L 100.0100 ####[facility] [address] [place], [address] WBC (Bld) [#/Vol] 12.8 10*3/uL High 4.4-11.0 [facility] Comment on above: Performed By: #### L 100.0100 ####[facility] [address] [place], [address] Culture, Blood (WB)on 2024 CUB Blood cultures x2, from two different sites No growth in 5 days. Normal [facility] Comment on above: Performed By: #### M 200.1000, L300.3900, L500.4050, L503.6005, L300.4310, L100.0100 ####[facility] [address] [place], [address] Basic Metabolic Profile (BMP )on 09-16-2024 Anion gap [Moles/Vol] 11 mmol/L Normal 5-15 [facility] Comment on above: Performed By: #### L 100.0100, L500.2500 ####[facility] [address] [place], [address] BUN/CRE 23.4 RATIO High 10-20 [facility] Comment on above: Performed By: #### L 100.0100, L500.2500 ####[facility] [address] [place], [address] Calcium [Mass/Vol] 9.2 mg/dL Normal 7.6-11.0 [facility] Comment on above: Performed By: #### L 100.0100, L500.2500 ####[facility] [address] [place], [address] Chloride [Moles/Vol] 104 mmol/L Normal 96-108 [facility] Comment on above: Performed By: #### L 100.0100, L500.2500 ####[facility] [address] [place], [address] CO2 [Moles/Vol] 25.6 mmol/L Normal 22.0-29.0 [facility] Comment on above: Performed By: #### L 100.0100, L500.2500 ####[facility] [address] [place], [address] Creatinine [Mass/Vol] 1.32 mg/dL High 0.70-1.20 [facility] Comment on above: Performed By: #### L 100.0100, L500.2500 ####[facility] [address] [place], [address] ECRCL 54.94 ml/min Normal 50-250 [facility] Comment on above: Performed By: #### L 100.0100, L500.2500 ####[facility] [address] [place], [address] GFR/1.73 sq M.predicted among non-blacks MDRD (S/P/Bld) [Vol rate/Area] 46 mL/min/{1.73_m2} Low >60 [facility] Comment on above: Result Comment: mL/m in/1.73m2 CKD-EPI Creatinine Equation (2020) Performed By: #### L 100.0100, L500.2500 ####[facility] [address] [place], [address] Glucose [Mass/Vol] 136 mg/dL High 70-99 [facility] Comment on above: Performed By: #### L 100.0100, L500.2500 ####[facility] [address] [place], [address] Potassium [Moles/Vol] 4.3 mmol/L Normal 3.3-5.1 [facility] Comment on above: Performed By: #### L 100.0100, L500.2500 ####[facility] [address] [place], [address] Sodium [Moles/Vol] 140 mmol/L Normal 133-145 [facility] Comment on above: Performed By: #### L 100.0100, L500.2500 ####[facility] [address] [place], [address] Urea nitrogen [Mass/Vol] 31 mg/dL High 4-19 [facility] Comment on above: Performed By: #### L 100.0100, L500.2500 ####[facility] [address] [place], [address] Bedside Glucoseon 09-16-2024 FINGERSTICK GLU 172 mg/dL High 74-106 [facility] Comment on above: Result Comment: BJ GEMENT OF PATIENT CARE PER NURSING PROTOCOL Performed By: #### L 501.080 ####[facility] [address] [place], [address] FINGERSTICK GLU 196 mg/dL High 74-106 [facility] Comment on above: Result Comment: BJ GEMENT OF PATIENT CARE PER NURSING PROTOCOL Performed By: #### L 501.080 ####[facility] [address] [place], [address] FINGERSTICK GLU 151 mg/dL High 74-106 [facility] Comment on above: Result Comment: BJ GEMENT OF PATIENT CARE PER NURSING PROTOCOL Performed By: #### L 501.080 ####[facility] [address] [place], [address] FINGERSTICK GLU 135 mg/dL High 74-106 [facility] Comment on above: Result Comment: BJ GEMENT OF PATIENT CARE PER NURSING PROTOCOL Performed By: #### L 501.080 ####[facility] [address] [place], [address] CBC W/Diff, Automatedon 03-0 2-2025 Absolute Lymph 1.02 X10 3/uL Normal 0.83-4.51 [facility] Comment on above: Performed By: #### L 100.0100, L500.2500 ####[facility] [address] [place], [address] Absolute Neut 7.2 X10 3/uL Normal 2.0-7.7 [facility] Comment on above: Performed By: #### L 100.0100, L500.2500 ####[facility] [address] [place], [address] Basophils/100 WBC (Bld) 0.1 % Normal 0-[address] [facility] Comment on above: Performed By: #### L 100.0100, L500.2500 ####[facility] [address] [place], [address] Eosinophils/100 WBC (Bld) 0.0 % Normal 0-5 [facility] Comment on above: Performed By: #### L 100.0100, L500.2500 ####[facility] [address] [place], [address] Erythrocyte distribution width (RBC) [Ratio] 13.1 % Normal 11.6-14.6 [facility] Comment on above: Performed By: #### L 100.0100, L500.2500 ####[facility] [address] [place], [address] Hematocrit (Bld) [Volume fraction] 41.8 % Normal 37-47 [facility] Comment on above: Performed By: #### L 100.0100, L500.2500 ####[facility] [address] [place], [address] Hemoglobin (Bld) [Mass/Vol] 13.7 g/dL Normal 12.0-15.0 [facility] Comment on above: Performed By: #### L 100.0100, L500.2500 ####[facility] [address] [place], [address] IG% 0.300 Normal 0.0-0.9 [facility] Comment on above: Result Comment: IG% - Immature Granulocytes (promyelocytes, myelocytes andmetamyelocytes) > 1% indicates that a LEFT SHIFT is Present. Performed By: #### L 100.0100, L500.2500 ####[facility] [address] [place], [address] Lymphocytes/100 WBC (Bld) 11.4 % Low 19-41 [facility] Comment on above: Performed By: #### L 100.0100, L500.2500 ####[facility] [address] [place], [address] MCH (RBC) [Entitic mass] 30.9 pg Normal 27.0-32.0 [facility] Comment on above: Performed By: #### L 100.0100, L500.2500 ####[facility] [address] [place], [address] MCHC (RBC) [Mass/Vol] 32.8 g/dL Normal 32-36 [facility] Comment on above: Performed By: #### L 100.0100, L500.2500 ####[facility] [address] [place], [address] MCV (RBC) [Entitic vol] 94.4 fL Normal 81-99 [facility] Comment on above: Performed By: #### L 100.0100, L500.2500 ####[facility] [address] [place], [address] Monocytes/100 WBC (Bld) 7.1 % Normal 0-10 [facility] Comment on above: Performed By: #### L 100.0100, L500.2500 ####[facility] [address] [place], [address] Neutrophils/100 WBC (Bld) 81.1 % High 47-70 [facility] Comment on above: Performed By: #### L 100.0100, L500.2500 ####[facility] [address] [place], [address] Nucleated RBC (Bld) [#/Vol] 0 10*3/uL Normal 0-5 [facility] Comment on above: Performed By: #### L 100.0100, L500.2500 ####[facility] [address] [place], [address] Platelet mean volume (Bld) [Entitic vol] 10.4 fL Normal 6.2-12.0 [facility] Comment on above: Performed By: #### L 100.0100, L500.2500 ####[facility] [address] [place], [address] Platelets (Bld) [#/Vol] 263 10*3/uL Normal 150-450 [facility] Comment on above: Performed By: #### L 100.0100, L500.2500 ####[facility] [address] [place], [address] RBC (Bld) [#/Vol] 4.43 10*6/uL Normal 4.2-5.4 [facility] Comment on above: Performed By: #### L 100.0100, L500.2500 ####[facility] [address] [place], [address] RDW SD 45.6 fl High 35.1-43.9 [facility] Comment on above: Performed By: #### L 100.0100, L500.2500 ####[facility] [address] [place], [address] WBC (Bld) [#/Vol] 8.9 10*3/uL Normal 4.4-11.0 [facility] Comment on above: Performed By: #### L 100.0100, L500.2500 ####[facility] [address] [place], [address] Bedside Glucoseon 09-15-2024 FINGERSTICK GLU 143 mg/dL High 74-106 [facility] Comment on above: Result Comment: BJ GEMENT OF PATIENT CARE PER NURSING PROTOCOL Performed By: #### L 501.080 ####[facility] [address] [place], [address] FINGERSTICK GLU 141 mg/dL High 74-106 [facility] Comment on above: Result Comment: BJ GEMENT OF PATIENT CARE PER NURSING PROTOCOL Performed By: #### L 501.080 ####[facility] [address] [place], [address] FINGERSTICK GLU 118 mg/dL High 74-106 [facility] Comment on above: Result Comment: BJ GEMENT OF PATIENT CARE PER NURSING PROTOCOL Performed By: #### L 501.080 ####[facility] [address] [place], [address] FINGERSTICK GLU 117 mg/dL High 74-106 [facility] Comment on above: Result Comment: BJ GEMENT OF PATIENT CARE PER NURSING PROTOCOL Performed By: #### L 501.080 ####[facility] [address] [place], [address] FINGERSTICK GLU 145 mg/dL High 74-106 [facility] Comment on above: Result Comment: BJ GEMENT OF PATIENT CARE PER NURSING PROTOCOL Performed By: #### L 501.080 ####[facility] [address] [place], [address] Basic Metabolic Profile (BMP )on 09-14-2024 Anion gap [Moles/Vol] 10 mmol/L Normal 5-15 [facility] Comment on above: Performed By: #### L 500.2500 ####[facility] [address] [place], [address] BUN/CRE 15.8 RATIO Normal 10-20 [facility] Comment on above: Performed By: #### L 500.2500 ####[facility] [address] [place], [address] Calcium [Mass/Vol] 8.7 mg/dL Normal 7.6-11.0 [facility] Comment on above: Performed By: #### L 500.2500 ####[facility] [address] [place], [address] Chloride [Moles/Vol] 108 mmol/L Normal 96-108 [facility] Comment on above: Performed By: #### L 500.2500 ####[facility] [address] [place], [address] CO2 [Moles/Vol] 21.7 mmol/L Low 22.0-29.0 [facility] Comment on above: Performed By: #### L 500.2500 ####[facility] [address] [place], [address] Creatinine [Mass/Vol] 1.20 mg/dL Normal 0.70-1.20 [facility] Comment on above: Performed By: #### L 500.2500 ####[facility] [address] [place], [address] ECRCL 60.44 ml/min Normal [facility] Comment on above: Performed By: #### L 500.2500 ####[facility] [address] [place], [address] GFR/1.73 sq M.predicted among non-blacks MDRD (S/P/Bld) [Vol rate/Area] 51 mL/min/{1.73_m2} Low >60 [facility] Comment on above: Result Comment: mL/m in/1.73m2 CKD-EPI Creatinine Equation (2020) Performed By: #### L 500.2500 ####[facility] [address] [place], [address] Glucose [Mass/Vol] 132 mg/dL High 70-99 [facility] Comment on above: Performed By: #### L 500.2500 ####[facility] [address] [place], [address] Potassium [Moles/Vol] 4.1 mmol/L Normal 3.3-5.1 [facility] Comment on above: Performed By: #### L 500.2500 ####[facility] [address] [place], [address] Sodium [Moles/Vol] 140 mmol/L Normal 133-145 [facility] Comment on above: Performed By: #### L 500.2500 ####[facility] [address] [place], [address] Urea nitrogen [Mass/Vol] 19 mg/dL Normal 4-19 [facility] Comment on above: Performed By: #### L 500.2500 ####[facility] [address] [place], [address] Bedside Glucoseon 09-14-2024 FINGERSTICK GLU 185 mg/dL High 74-106 [facility] Comment on above: Result Comment: BJ GEMENT OF PATIENT CARE PER NURSING PROTOCOL Performed By: #### L 501.080 ####[facility] [address] [place], [address] FINGERSTICK GLU 210 mg/dL High 74-106 [facility] Comment on above: Result Comment: BJ GEMENT OF PATIENT CARE PER NURSING PROTOCOL Performed By: #### L 501.080 ####[facility] [address] [place], [address] FINGERSTICK GLU 130 mg/dL High 74-106 [facility] Comment on above: Result Comment: BJ GEMENT OF PATIENT CARE PER NURSING PROTOCOL Performed By: #### L 501.080 ####[facility] [address] [place], [address] Basic Metabolic Profile (BMP )on 09-13-2024 Anion gap [Moles/Vol] 10 mmol/L Normal 5-15 [facility] Comment on above: Order Comment: Comme nts: NPO at [place] prior to lipid panel Performed By: #### L 501.9520, L100.0100, L501.9985, L500.2500, L500.4100 ####[facility] [address] [place], [address] BUN/CRE 11.3 RATIO Normal 10-20 [facility] Comment on above: Order Comment: Comme nts: NPO at [place] prior to lipid panel Performed By: #### L 501.9520, L100.0100, L501.9985, L500.2500, L500.4100 ####[facility] [address] [place], [address] Calcium [Mass/Vol] 8.4 mg/dL Normal 7.6-11.0 [facility] Comment on above: Order Comment: Comme nts: NPO at [place] prior to lipid panel Performed By: #### L 501.9520, L100.0100, L501.9985, L500.2500, L500.4100 ####[facility] [address] [place], [address] Chloride [Moles/Vol] 109 mmol/L High 96-108 [facility] Comment on above: Order Comment: Comme nts: NPO at [place] prior to lipid panel Performed By: #### L 501.9520, L100.0100, L501.9985, L500.2500, L500.4100 ####[facility] [address] [place], [address] CO2 [Moles/Vol] 21.1 mmol/L Low 22.0-29.0 [facility] Comment on above: Order Comment: Comme nts: NPO at [place] prior to lipid panel Performed By: #### L 501.9520, L100.0100, L501.9985, L500.2500, L500.4100 ####[facility] [address] [place], [address] Creatinine [Mass/Vol] 1.3 mg/dL High 0.6-1.0 [facility] Comment on above: Order Comment: Comme nts: NPO at [place] prior to lipid panel Performed By: #### L 501.9520, L100.0100, L501.9985, L500.2500, L500.4100 ####[facility] [address] [place], [address] ECRCL 55.79 ml/min Normal [facility] Comment on above: Order Comment: Comme nts: NPO at [place] prior to lipid panel Performed By: #### L 501.9520, L100.0100, L501.9985, L500.2500, L500.4100 ####[facility] [address] [place], [address] GFR/1.73 sq M.predicted among non-blacks MDRD (S/P/Bld) [Vol rate/Area] 48 mL/min/{1.73_m2} Low >60 [facility] Comment on above: Order Comment: Comme nts: NPO at [place] prior to lipid panel Result Comment: mL/m in/1.73m2 CKD-EPI Creatinine Equation (2020) Performed By: #### L 501.9520, L100.0100, L501.9985, L500.2500, L500.4100 ####[facility] [address] [place], [address] Glucose [Mass/Vol] 130 mg/dL High 70-99 [facility] Comment on above: Order Comment: Comme nts: NPO at [place] prior to lipid panel Performed By: #### L 501.9520, L100.0100, L501.9985, L500.2500, L500.4100 ####[facility] [address] [place], [address] Potassium [Moles/Vol] 3.9 mmol/L Normal 3.3-5.1 [facility] Comment on above: Order Comment: Comme nts: NPO at [place] prior to lipid panel Performed By: #### L 501.9520, L100.0100, L501.9985, L500.2500, L500.4100 ####[facility] [address] [place], [address] Sodium [Moles/Vol] 140 mmol/L Normal 133-145 [facility] Comment on above: Order Comment: Comme nts: NPO at [place] prior to lipid panel Performed By: #### L 501.9520, L100.0100, L501.9985, L500.2500, L500.4100 ####[facility] [address] [place], [address] Urea nitrogen [Mass/Vol] 14 mg/dL Normal 4-19 [facility] Comment on above: Order Comment: Comme nts: NPO at [place] prior to lipid panel Performed By: #### L 501.9520, L100.0100, L501.9985, L500.2500, L500.4100 ####[facility] [address] [place], [address] Bedside Glucoseon 09-13-2024 FINGERSTICK GLU 129 mg/dL High 74-106 [facility] Comment on above: Result Comment: BJ GEMENT OF PATIENT CARE PER NURSING PROTOCOL Performed By: #### L 501.080 ####[facility] [address] [place], [address] FINGERSTICK GLU 148 mg/dL High -106 [facility] Comment on above: Result Comment: BJ GEMENT OF PATIENT CARE PER NURSING PROTOCOL Performed By: #### L 501.080 ####[facility] [address] [place], [address] FINGERSTICK GLU 195 mg/dL High 74-106 [facility] Comment on above: Result Comment: BJ GEMENT OF PATIENT CARE PER NURSING PROTOCOL Performed By: #### L 501.080 ####[facility] [address] [place], [address] FINGERSTICK GLU 128 mg/dL High 74-106 [facility] Comment on above: Result Comment: BJ GEMENT OF PATIENT CARE PER NURSING PROTOCOL Performed By: #### L 501.080 ####[facility] [address] [place], [address] CBC W/Diff, Automatedon - Absolute Lymph 0.76 X10 3/uL Low 0.83-4.51 [facility] Comment on above: Performed By: #### L 501.9520, L100.0100, L501.9985, L500.2500, L500.4100 ####[facility] [address] [place], [address] Absolute Neut 6.1 X10 3/uL Normal 2.0-7.7 [facility] Comment on above: Performed By: #### L 501.9520, L100.0100, L501.9985, L500.2500, L500.4100 ####[facility] [address] [place], [address] Basophils/100 WBC (Bld) 0.1 % Normal 0-[address] [facility] Comment on above: Performed By: #### L 501.9520, L100.0100, L501.9985, L500.2500, L500.4100 ####[facility] [address] [place], [address] Eosinophils/100 WBC (Bld) 0.0 % Normal 0-5 [facility] Comment on above: Performed By: #### L 501.9520, L100.0100, L501.9985, L500.2500, L500.4100 ####[facility] [address] [place], [address] Erythrocyte distribution width (RBC) [Ratio] 13.1 % Normal 11.6-14.6 [facility] Comment on above: Performed By: #### L 501.9520, L100.0100, L501.9985, L500.2500, L500.4100 ####[facility] [address] [place], [address] Hematocrit (Bld) [Volume fraction] 39.3 % Normal 37-47 [facility] Comment on above: Performed By: #### L 501.9520, L100.0100, L501.9985, L500.2500, L500.4100 ####[facility] [address] [place], [address] Hemoglobin (Bld) [Mass/Vol] 12.9 g/dL Normal 12.0-15.0 [facility] Comment on above: Performed By: #### L 501.9520, L100.0100, L501.9985, L500.2500, L500.4100 ####[facility] [address] [place], [address] IG% 0.500 Normal 0.0-0.9 [facility] Comment on above: Result Comment: IG% - Immature Granulocytes (promyelocytes, myelocytes andmetamyelocytes) > 1% indicates that a LEFT SHIFT is Present. Performed By: #### L 501.9520, L100.0100, L501.9985, L500.2500, L500.4100 ####[facility] [address] [place], [address] Lymphocytes/100 WBC (Bld) 10.0 % Low 19-41 [facility] Comment on above: Performed By: #### L 501.9520, L100.0100, L501.9985, L500.2500, L500.4100 ####[facility] [address] [place], [address] MCH (RBC) [Entitic mass] 31.7 pg Normal 27.0-32.0 [facility] Comment on above: Performed By: #### L 501.9520, L100.0100, L501.9985, L500.2500, L500.4100 ####[facility] [address] [place], [address] MCHC (RBC) [Mass/Vol] 32.8 g/dL Normal 32-36 [facility] Comment on above: Performed By: #### L 501.9520, L100.0100, L501.9985, L500.2500, L500.4100 ####[facility] [address] [place], [address] MCV (RBC) [Entitic vol] 96.6 fL Normal 81-[address] [facility] Comment on above: Performed By: #### L 501.9520, L100.0100, L501.9985, L500.2500, L500.4100 ####[facility] [address] [place], [address] Monocytes/100 WBC (Bld) 9.5 % Normal 0-[address] [facility] Comment on above: Performed By: #### L 501.9520, L100.0100, L501.9985, L500.2500, L500.4100 ####[facility] [address] [place], [address] Neutrophils/100 WBC (Bld) 79.9 % High 47-70 [facility] Comment on above: Performed By: #### L 501.9520, L100.0100, L501.9985, L500.2500, L500.4100 ####[facility] [address] [place], [address] Nucleated RBC (Bld) [#/Vol] 0 10*3/uL Normal 0-5 [facility] Comment on above: Performed By: #### L 501.9520, L100.0100, L501.9985, L500.2500, L500.4100 ####[facility] [address] [place], [address] Platelet mean volume (Bld) [Entitic vol] 10.6 fL Normal 6.2-12.0 [facility] Comment on above: Performed By: #### L 501.9520, L100.0100, L501.9985, L500.2500, L500.4100 ####[facility] [address] [place], [address] Platelets (Bld) [#/Vol] 225 10*3/uL Normal 150-450 [facility] Comment on above: Performed By: #### L 501.9520, L100.0100, L501.9985, L500.2500, L500.4100 ####[facility] [address] [place], [address] RBC (Bld) [#/Vol] 4.07 10*6/uL Low 4.2-5.4 [facility] Comment on above: Performed By: #### L 501.9520, L100.0100, L501.9985, L500.2500, L500.4100 ####[facility] [address] [place], [address] RDW SD 47.2 fl High 35.1-43.9 [facility] Comment on above: Performed By: #### L 501.9520, L100.0100, L501.9985, L500.2500, L500.4100 ####[facility] [address] [place], [address] WBC (Bld) [#/Vol] 7.6 10*3/uL Normal 4.4-11.0 [facility] Comment on above: Performed By: #### L 501.9520, L100.0100, L501.9985, L500.2500, L500.4100 ####[facility] [address] [place], [address] Calculated very low density lipoprotein (VLDL) cholesterol measurementOrdered By: Wilfredo Denton on 09-13-2024 Calculated very low density lipoprotein (VLDL) cholesterol measurement 14 mg/dL -40 [facility] VLDL Cholesterol 14 mg/dL -40 [facility] Echocardiogram study reportO rdered By: Genoveva Garcia on 09-13-2024 Study report [facility] [address] [place] [address] Echo Complete 09/13/24 1506 MR#: [id number] Acct: [id number] Name: PERNELL RODRIGUEZ Rep #:[id number] : 1960 64 From: Genoveva reaves MD Attending Dr: Dr. Guevara Collins MD Status: ADM IN Ordering Dr: Wilfredo Denton DO Date: Location: [facility] Sex: F C Admitted: 09/12/24 Reason [...] Dictated: 09/13/24 1506 Date Transcribed: 09/13/24 1542 Supervisor Composing Room: Signed [facility] Work Phone: Electrocardiogram reportOrde red By: Kam Turk on 09-13-2024 EKG study [facility] [address] [place] [address] 12 Lead EKG 09/12/24 1113 MR#: [id number] Acct: [id number] Name: PERNELL RODRIGUEZ Rep #:[id number] : 1960 64 From: Kam chan MD Attending Dr: Dr. Guevara Collins MD Status: ADM IN Ordering Dr: Randy Cabrales MD Date: Location: [facility] Sex: F C Admitted: 09/12/24 Test Reason : Blood Pressure : */* mmHG Vent. Rate : 93 BPM Atrial Rate : 93 BPM P-R Int : 162 ms QRS Dur : 88 ms QT Int : 360 ms P-R-T Axes : 57 0 61 degrees QTcB Int : 447 ms Normal sinus rhythm Normal ECG Confirmed by Kam Turk ([id number]), online content editor FLORES BOUCHER ([id number]) on 09/13/2024 9:33:48 AM Referred By: TA/TB Confirmed By: Kam Turk 09/13/24 0933 Date _ Kam Turk MD CC: Dr. Randy Cabrales MD; Dr. Homer Bradford MD; Dr. Guevara Collins MD ~ Signed [facility] Other Hemoglobin A1con 09-13-2024 HbA1c (Bld) [Mass fraction] 6.0 % Normal <=5.6 [facility] Comment on above: Performed By: #### L 501.9514, L100.0100, L501.6409, L500.2500, L500.6730 ####[facility] [address] [place], [address] Hemoglobin A1c percentageOrd ered By: Wilfredo Denton on 09-13-2024 HbA1c (Bld) [Mass fraction] 6.0 % >5.7 [facility] LDL calc ser/plasOrdered By: Wilfredo Denton on 09-13-2024 Cholesterol in LDL [Mass/Vol] 33 mg/dL [facility] LDL Cholesterol, Calculated 33 mg/dL [facility] Comment on above: Jkrdbcmfzl=523-491 m g/dL & Higher Wojq=584 mg/dL or greater Lipid Profileon 09-13-2024 CHOL:HDL 2.00 Normal [facility] Comment on above: Order Comment: Comme nts: NPO at [place] prior to lipid panel Performed By: #### L 501.9520, L100.0100, L501.9985, L500.2500, L500.4100 ####[facility] [address] [place], [address] Cholesterol [Mass/Vol] 94 mg/dL Normal <=200 [facility] Comment on above: Order Comment: Comme nts: NPO at [place] prior to lipid panel Result Comment: Chol esterol level, Desirable <200 mg/dLBorderline high cholesterol 200-239 mg/dLHigh cholesterol >=240 mg/dLRecommendations of the NCEP Adult Treatment Panel for thefollowing risk-cutoff thresholds for the [place] Americanpopulation. Performed By: #### L 501.9520, L100.0100, L501.9985, L500.2500, L500.4100 ####[facility] [address] [place], [address] Cholesterol in HDL [Mass/Vol] 47 mg/dL Normal [facility] Comment on above: Order Comment: Comme nts: NPO at [place] prior to lipid panel Result Comment: Licha onal Cholesterol Education Program (NCEP) guidelines:<40 mg/dL: Low HDL-cholesterol (major risk factor for CHD)>= 60 mg/dL: High HDL-cholesterol (negative risk factor forCHD)HDL-cholesterol is affected by a number of factors, e.g.smoking, exercise, hormones, sex and age. Performed By: #### L 501.9520, L100.0100, L501.9985, L500.2500, L500.4100 ####[facility] [address] [place], [address] Cholesterol in LDL [Mass/Vol] 33 mg/dL Normal [facility] Comment on above: Order Comment: Comme nts: NPO at [place] prior to lipid panel Result Comment: Bord elfnhf=377-564 mg/dL Higher Cnnh=332 mg/dL or greater Performed By: #### L 501.9520, L100.0100, L501.9985, L500.2500, L500.4100 ####[facility] [address] [place], [address] Cholesterol in VLDL [Mass/Vol] 14 mg/dL Normal 5-40 [facility] Comment on above: Order Comment: Comme nts: NPO at [place] prior to lipid panel Performed By: #### L 501.9520, L100.0100, L501.9985, L500.2500, L500.4100 ####[facility] [address] [place], [address] Triglyceride [Mass/Vol] 71 mg/dL Normal [facility] Comment on above: Order Comment: Comme nts: NPO at [place] prior to lipid panel Result Comment: The drugs N-Acetylcysteine and Metamizole may falselydepress this assay.Normal range: <150 mg/dLBorderline High: 150-199 mg/dLHigh: 200-499 mg/dLVery High: >500 mg/dL Performed By: #### L 501.9520, L100.0100, L501.9985, L500.2500, L500.4100 ####[facility] [address] [place], [address] MR/CON.PCM.NEon 09-13-2024 MR/CON.PCM.NE Normal [facility] Screening total cholesterol/ high density lipoprotein (HDL) cholesterol ratioOrdered By: Wilfredo Denton on 09-13-2024 Cholesterol.total/Choles terol in HDL [Mass ratio] 2.00 {ratio} [facility] Serum or plasma cholesterol in HDL measurement (mass/volume)Ordered By: Wilfredo Denton on 09-13-2024 Cholesterol in HDL [Mass/Vol] 47 mg/dL >40 [facility] Comment on above: National Cholesterol Education Program (NCEP) guidelines:<40 mg/dL: Low HDL-cholesterol (major risk factor for CHD)>= 60 mg/dL: High HDL-cholesterol (negative risk factor for CHD)HDL-cholesterol is affected by a number of factors, e.g. smoking, exercise, hormones, sex and age. Serum or plasma cholesterol measurement (mass/volume)Ordered By: Wilfredo Denton on 09-13-2024 Cholesterol [Mass/Vol] 94 mg/dL <201 [facility] Comment on above: Cholesterol level, D esirable <200 mg/dLBorderline high cholesterol 200-239 mg/dLHigh cholesterol >=240 mg/dLRecommendations of the NCEP Adult Treatment Panel for the following risk-cutoff thresholds for the [place] population. TSH DL <= 0.005 mIU/L QnOrde red By: Wilfredo Denton on 09-13-2024 Thyroid Stimulating Hormone (TSH) 0.483 uIU/mL 0.300-4.200 [facility] TSH Qn 0.483 uIU/mL 0.300-4.200 [facility] Thyroid Stim Hormone (TSH)on 09-13-2024 TSH 0.483 uIU/mL Normal 0.300-4.200 [facility] Comment on above: Order Comment: Comme nts: NPO at [place] prior to lipid panel Performed By: #### L 501.9520, L100.0100, L501.9985, L500.2500, L500.4100 ####[facility] [address] [place], [place], [address] Triglycerides measurementOrd ered By: Wilfredo Denton on 09-13-2024 Triglyceride [Mass/Vol] 71 mg/dL <[address] [facility] Comment on above: The drugs N-Acetylcy steine and Metamizole may falsely depress this assay. Normal range: <150 mg/dLBorderline High: 150-199 mg/dLHigh: 200-499 mg/dLVery High: >500 mg/dL Urine Cultureon 09-13-2024 URC Culture exhibits no growth. Normal [facility] Comment on above: Performed By: #### M 100.2200, M100.678, L400.0001 ####[facility] [address] [place], [place], [address] 12 Lead EKGon 09-12-2024 12 Lead EKG Normal [facility] Activated partial thrombopla stin time (aPTT) in platelet poor plasma by coagulation aOrdered By: Randy Cabrales on 09-12-2024 aPTT Coag (PPP) [Time] 30.9 s 24.1-36.2 [facility] Bedside Glucoseon 09-12-2024 FINGERSTICK GLU 141 mg/dL High 74-106 [facility] Comment on above: Result Comment: BJ MOURA OF PATIENT CARE PER NURSING PROTOCOL Performed By: #### L 501.080 ####[facility] [address] [place], [place], [address] Bilirubin Test strip Ql (U)O rdered By: Randy Cabrales on 09-12-2024 Bilirubin Ql (U) Negative Negative [facility] Bilirubin, totalOrdered By: Randy Cabrales on 09-12-2024 Bilirubin [Mass/Vol] 0.69 mg/dL 0.00-1.30 [facility] Blood cultureOrdered By: Barrett Cabrales on 09-12-2024 Bacteria identified Cx Nom (Bld) No growth in 5 days. [facility] Bacteria identified Cx Nom (Bld) No growth in 5 days. [facility] Brain without Contraston Brain without Contrast Normal [facility] Brain/Head without Contrasto n 09-12-2024 Brain/Head without Contrast Normal [facility] CBC W/Diff, Automatedon 08-19 Absolute Lymph 0.53 X10 3/uL Low 0.83-4.51 [facility] Comment on above: Performed By: #### M 200.1000, L300.3900, L500.4050, L503.6005, L300.4310, L100.0100 ####[facility] [address] [place], [address] Absolute Neut 7.7 X10 3/uL Normal 2.0-7.7 [facility] Comment on above: Performed By: #### M 200.1000, L300.3900, L500.4050, L503.6005, L300.4310, L100.0100 ####[facility] [address] [place], [address] Basophils/100 WBC (Bld) 0.2 % Normal 0-[address] [facility] Comment on above: Performed By: #### M 200.1000, L300.3900, L500.4050, L503.6005, L300.4310, L100.0100 ####[facility] [address] [place], [address] Eosinophils/100 WBC (Bld) 0.1 % Normal 0-5 [facility] Comment on above: Performed By: #### M 200.1000, L300.3900, L500.4050, L503.6005, L300.4310, L100.0100 ####[facility] [address] [place], [address] Erythrocyte distribution width (RBC) [Ratio] 13.2 % Normal 11.6-14.6 [facility] Comment on above: Performed By: #### M 200.1000, L300.3900, L500.4050, L503.6005, L300.4310, L100.0100 ####[facility] [address] [place], [address] Hematocrit (Bld) [Volume fraction] 42.9 % Normal 37-47 [facility] Comment on above: Performed By: #### M 200.1000, L300.3900, L500.4050, L503.6005, L300.4310, L100.0100 ####[facility] [address] [place], [address] Hemoglobin (Bld) [Mass/Vol] 14.0 g/dL Normal 12.0-15.0 [facility] Comment on above: Performed By: #### M 200.1000, L300.3900, L500.4050, L503.6005, L300.4310, L100.0100 ####[facility] [address] [place], [address] IG% 0.300 Normal 0.0-0.9 [facility] Comment on above: Result Comment: IG% - Immature Granulocytes (promyelocytes, myelocytes andmetamyelocytes) > 1% indicates that a LEFT SHIFT is Present. Performed By: #### M 200.1000, L300.3900, L500.4050, L503.6005, L300.4310, L100.0100 ####[facility] [address] [place], [address] Lymphocytes/100 WBC (Bld) 5.9 % Low 19-41 [facility] Comment on above: Performed By: #### M 200.1000, L300.3900, L500.4050, L503.6005, L300.4310, L100.0100 ####[facility] [address] [place], [place], [address] MCH (RBC) [Entitic mass] 31.4 pg Normal 27.0-32.0 [facility] Comment on above: Performed By: #### M 200.1000, L300.3900, L500.4050, L503.6005, L300.4310, L100.0100 ####[facility] [address] [place], [address] MCHC (RBC) [Mass/Vol] 32.6 g/dL Normal 32-36 [facility] Comment on above: Performed By: #### M 200.1000, L300.3900, L500.4050, L503.6005, L300.4310, L100.0100 ####[facility] [address] [place], [address] MCV (RBC) [Entitic vol] 96.2 fL Normal 81-99 [facility] Comment on above: Performed By: #### M 200.1000, L300.3900, L500.4050, L503.6005, L300.4310, L100.0100 ####[facility] [address] [place], [address] Monocytes/100 WBC (Bld) 8.4 % Normal 0-10 [facility] Comment on above: Performed By: #### M 200.1000, L300.3900, L500.4050, L503.6005, L300.4310, L100.0100 ####[facility] [address] [place], [address] Neutrophils/100 WBC (Bld) 85.1 % High 47-70 [facility] Comment on above: Performed By: #### M 200.1000, L300.3900, L500.4050, L503.6005, L300.4310, L100.0100 ####[facility] [address] [place], [address] Nucleated RBC (Bld) [#/Vol] 0 10*3/uL Normal 0-5 [facility] Comment on above: Performed By: #### M 200.1000, L300.3900, L500.4050, L503.6005, L300.4310, L100.0100 ####[facility] [address] [place], [address] Platelet mean volume (Bld) [Entitic vol] 10.4 fL Normal 6.2-12.0 [facility] Comment on above: Performed By: #### M 200.1000, L300.3900, L500.4050, L503.6005, L300.4310, L100.0100 ####[facility] [address] [place], [address] Platelets (Bld) [#/Vol] 231 10*3/uL Normal 150-450 [facility] Comment on above: Performed By: #### M 200.1000, L300.3900, L500.4050, L503.6005, L300.4310, L100.0100 ####[facility] [address] [place], [address] RBC (Bld) [#/Vol] 4.46 10*6/uL Normal 4.2-5.4 [facility] Comment on above: Performed By: #### M 200.1000, L300.3900, L500.4050, L503.6005, L300.4310, L100.0100 ####[facility] [address] [place], [address] RDW SD 47.2 fl High 35.1-43.9 [facility] Comment on above: Performed By: #### M 200.1000, L300.3900, L500.4050, L503.6005, L300.4310, L100.0100 ####[facility] [address] [place], [address] WBC (Bld) [#/Vol] 9.0 10*3/uL Normal 4.4-11.0 [facility] Comment on above: Performed By: #### M 200.1000, L300.3900, L500.4050, L503.6005, L300.4310, L100.0100 ####[facility] [address] [place], [address] Chest 1 View (Portable)on Chest 1 View (Portable) Normal [facility] Comprehensive Metabolic Prof ilon 09-12-2024 Albumin [Mass/Vol] 3.9 g/dL Normal 3.4-4.8 [facility] Comment on above: Performed By: #### M 200.1000, L300.3900, L500.4050, L503.6005, L300.4310, L100.0100 ####[facility] [address] [place], [address] Albumin/Globulin [Mass ratio] 1.5 {ratio} Normal 0.9-2.4 [facility] Comment on above: Performed By: #### M 200.1000, L300.3900, L500.4050, L503.6005, L300.4310, L100.0100 ####[facility] [address] [place], [address] ALK PHOS 78 U/L Normal 35-104 [facility] Comment on above: Performed By: #### M 200.1000, L300.3900, L500.4050, L503.6005, L300.4310, L100.0100 ####[facility] [address] [place], [address] ALT [Catalytic activity/Vol] 17 U/L Normal <=34 [facility] Comment on above: Performed By: #### M 200.1000, L300.3900, L500.4050, L503.6005, L300.4310, L100.0100 ####[facility] [address] [place], [address] Anion gap [Moles/Vol] 12 mmol/L Normal 5-15 [facility] Comment on above: Performed By: #### M 200.1000, L300.3900, L500.4050, L503.6005, L300.4310, L100.0100 ####[facility] [address] [place], [address] AST [Catalytic activity/Vol] 28 U/L Normal <=31 [facility] Comment on above: Performed By: #### M 200.1000, L300.3900, L500.4050, L503.6005, L300.4310, L100.0100 ####[facility] [address] [place], [address] Bilirubin [Mass/Vol] 0.69 mg/dL Normal 0.00-1.30 [facility] Comment on above: Performed By: #### M 200.1000, L300.3900, L500.4050, L503.6005, L300.4310, L100.0100 ####[facility] [address] [place], [address] BUN/CRE 10.2 RATIO Normal 10-20 [facility] Comment on above: Performed By: #### M 200.1000, L300.3900, L500.4050, L503.6005, L300.4310, L100.0100 ####[facility] [address] [place], [address] Calcium [Mass/Vol] 9.0 mg/dL Normal 7.6-11.0 [facility] Comment on above: Performed By: #### M 200.1000, L300.3900, L500.4050, L503.6005, L300.4310, L100.0100 ####[facility] [address] [place], [address] Chloride [Moles/Vol] 103 mmol/L Normal 96-108 [facility] Comment on above: Performed By: #### M 200.1000, L300.3900, L500.4050, L503.6005, L300.4310, L100.0100 ####[facility] [address] [place], [address] CO2 [Moles/Vol] 24.2 mmol/L Normal 22.0-29.0 [facility] Comment on above: Performed By: #### M 200.1000, L300.3900, L500.4050, L503.6005, L300.4310, L100.0100 ####[facility] [address] [place], [address] Creatinine [Mass/Vol] 1.4 mg/dL High 0.6-1.0 [facility] Comment on above: Performed By: #### M 200.1000, L300.3900, L500.4050, L503.6005, L300.4310, L100.0100 ####[facility] [address] [place], [address] ECRCL 53.30 ml/min Normal [facility] Comment on above: Performed By: #### M 200.1000, L300.3900, L500.4050, L503.6005, L300.4310, L100.0100 ####[facility] [address] [place], [address] GFR/1.73 sq M.predicted among non-blacks MDRD (S/P/Bld) [Vol rate/Area] 44 mL/min/{1.73_m2} Low >60 [facility] Comment on above: Result Comment: mL/m in/1.73m2 CKD-EPI Creatinine Equation (2020) Performed By: #### M 200.1000, L300.3900, L500.4050, L503.6005, L300.4310, L100.0100 ####[facility] [address] [place], [address] Globulin (S) [Mass/Vol] 2.6 g/dL Normal 2.2-4.2 [facility] Comment on above: Performed By: #### M 200.1000, L300.3900, L500.4050, L503.6005, L300.4310, L100.0100 ####[facility] [address] [place], [address] Glucose [Mass/Vol] 117 mg/dL High 70-99 [facility] Comment on above: Performed By: #### M 200.1000, L300.3900, L500.4050, L503.6005, L300.4310, L100.0100 ####[facility] [address] [place], [address] Potassium [Moles/Vol] 3.6 mmol/L Normal 3.3-5.1 [facility] Comment on above: Performed By: #### M 200.1000, L300.3900, L500.4050, L503.6005, L300.4310, L100.0100 ####[facility] [address] [place], [address] Sodium [Moles/Vol] 139 mmol/L Normal 133-145 [facility] Comment on above: Performed By: #### M 200.1000, L300.3900, L500.4050, L503.6005, L300.4310, L100.0100 ####[facility] [address] [place], [address] T PROT 6.5 g/dL Normal 5.9-8.4 [facility] Comment on above: Performed By: #### M 200.1000, L300.3900, L500.4050, L503.6005, L300.4310, L100.0100 ####[facility] [address] [place], [address] Urea nitrogen [Mass/Vol] 14 mg/dL Normal 4-19 [facility] Comment on above: Performed By: #### M 200.1000, L300.3900, L500.4050, L503.6005, L300.4310, L100.0100 ####[facility] [address] [place], [address] Echo Completeon 09-12-2024 Echo Complete Normal [facility] Emergency Department Summary on 09-12-2024 Emergency Department Summary Normal [facility] Epithelial cells.squamous LM Ql (Urine sed)Ordered By: Randy Cabrales on 09-12-2024 Epithelial cells.squamous LM.HPF (Urine sed) [#/Area] 0 /[HPF] 5-10 [facility] Glucose Ql (U)Ordered By: Garry Cabrales on 09-12-2024 Urine Glucose (UA) Normal mg/dl Normal [facility] H AND P Exam - Hospitaliston 09-12-2024 H&P Exam - Hospitalist Normal [facility] Influenza virus A and B and SARS-CoV-2 (COVID-19) and Respiratory syncytial virus RNAOrdered By: Randy Cabrales on 09-12-2024 SARS-CoV-2 (COVID-19) RNA GERARDO+probe Ql (Unsp spec) SARS-CoV-2 (COVID 19) Abnormal [facility] SARS-CoV-2 (COVID-19) RNA GERARDO+probe Ql (Unsp spec) SARS-CoV-2 (COVID 19) Abnormal [facility] International normalized rat io (INR) calculationOrdered By: Randy Cabrales on 09-12-2024 INR Coag (Bld) [Relative time] 1.3 {INR} [facility] Ketones Test strip Ql (U)Ord ered By: Randy Cabrales on 09-12-2024 Ketones Ql (U) Negative Negative [facility] L499.0042on 09-12-2024 Trop T Delta 4 Normal [facility] Comment on above: Result Comment: If c linical suspicion for ACS is high, suggest getting athird troponin. Otherwise, stress test or CTCA. Performed By: #### L 499.0042 ####[facility] [address] [place], [address] Trop T High Sen 19 ng/L High <=14 [facility] Comment on above: Performed By: #### L 499.0042 ####[facility] [address] [place], [address] L499.0043on 09-12-2024 Trop T Delta 3 Normal [facility] Comment on above: Result Comment: Down stream testing and, if negative, consider otheretiologies for elevated troponin. Performed By: #### L 499.0043 ####[facility] [address] [place], [address] Trop T High Sen 20 ng/L High <=14 [facility] Comment on above: Performed By: #### L 499.0043 ####[facility] [address] [place], [address] L501.4021on 09-12-2024 Trop T High Sen 23 ng/L High <=14 [facility] Comment on above: Performed By: #### L 501.4021 ####[facility] [address] [place], [address] L503.7505on 09-12-2024 Natriuretic peptide B (Bld) [Mass/Vol] 130 pg/mL Normal <=900 [facility] Comment on above: Result Comment: Hear t Failure Unlikely: < 300 pg/mLHeart Failure Likely< 50 Years: > 450 pg/mL50-75 Years: > 900 pg/mL>75 Years: > 1800 pg/mL HF Unlikely: <300 pg/mL HF Likely: <50 years: >450 pg/mL 50 - 75 years: >900 pg/mL >75 years: >1800 pg/mL Performed By: #### L 503.7505 ####[facility] [address] [place], [place], [address] Laboratory - Chemistry and C hemistry - challengeOrdered By: Randy Cabrales on 09-12-2024 AST [Catalytic activity/Vol] 28 U/L <32 [facility] Natriuretic peptide B (Bld) [Mass/Vol] 130 pg/mL <900 [facility] Comment on above: Heart Failure Unlike ly: < 300 pg/mLHeart Failure Likely< 50 Years: > 450 pg/mL50-75 Years: > 900 pg/mL>75 Years: > 1800 pg/mL HF Unlikely: <300 pg/mL HF Likely: <50 years: >450 pg/mL 50 - 75 years: >900 pg/mL >75 years: >1800 pg/mL Lactic Acidon 09-12-2024 Lactate [Moles/Vol] 1.6 mmol/L Normal 0.0-2.0 [facility] Comment on above: Order Comment: Y Performed By: #### M 200.1000, L300.3900, L500.4050, L503.6005, L300.4310, L100.0100 ####[facility] [address] [place], [address] Lactic acid measurementOrder ed By: Randy Cabrales on 09-12-2024 Lactate [Moles/Vol] 1.6 mmol/L 0.0-2.0 [facility] M100.678on 09-12-2024 M100.678 Normal [facility] Comment on above: Performed By: #### M 100.2200, M100.678, L400.0001 ####[facility] [address] [place], [place], [address] MRA Head ONLY without Contra ston 09-12-2024 MRA Head ONLY without Contrast Normal [facility] MRA Neck without Contraston 09-12-2024 MRA Neck without Contrast Normal [facility] Magnetic resonance imaging r eportOrdered By: Elijah Rodriguez on 09-12-2024 Study report [facility] [address] [place], [place] [address] Brain without Contrast MR#: [id number] Acct: [id number] Name: PERNELL RODRIGUEZ #: [id number] : 1960 F 64 From: Thuy Rodriguez DO PCP: Dr. Homer Bradford MD Status: ADM IN Study:Brain without Contrast Date of Exam: 09/12/24 Exam# [id number] Ordering Dr: Wilfredo Denton DO PROCEDURE: Noncontrast [...] as above. Partially empty sella. [facility]: Dr. Wilfredo Denton DO; Dr. Homer Bradford MD ~ Supervisor Composing Room: Signed [facility] Study report [facility] [address] [place] [address] MRA Neck without Contrast MR#: [id number] Acct: [id number] Name: PERNELL RODRIGUEZ Rep #: [id number] : 1960 F 64 From: Thuy Rodriguez DO PCP: Dr. Homer Bradford MD Status: ADM IN Study:MRA Neck without Contrast Date of Exam: 09/12/24 Exam# [id number] Ordering Dr: Wilfredo Denton DO PROCEDURE: Noncontrast MRA of the neck. REASON FOR EXAM: Stroke. Abnormal head CT TECHNIQUE: Axial 2D [id number] noncontrast MRA images of the neck were [...] arteries appear to be patent. Reading Location: [facility] CC: Dr. Wilfredo Denton DO; Dr. Homer Bradford MD ~ Supervisor Composing Room: Signed [facility] Study report [facility] [address] [place] [id number] MRA Head ONLY without Contrast MR#: [id number] Acct: [id number] Name: PERNELL RODRIGUEZ [place] Rep #: [id number] 2 : 1960 F 64 From: Thuy Rodriguez DO PCP: Dr. Homer Bradford MD Status: ADM IN Study:MRA Head ONLY without Contrast Date of Exam: 09/12/24 Exam# [id number] Ordering Dr: Wilfredo Denton DO PROCEDURE: Noncontrast [...] artery. Reading Location: [facility] CC: Dr. Wilfredo Denton, ; Dr. Homer Bradford MD ~ Supervisor Composing Room: Signed [facility] Microscopic analysis of urin e for red blood cells (RBC)Ordered By: Randy Cabrales on 09-12-2024 Urine RBC 0-5 SEEN /hpf 0-5 [facility] Mucus LM Ql (Urine sed)Order ed By: Randy Cabrales on 09-12-2024 Mucus Ql (Urine sed) 0 SEEN /hpf [facility] Nitrite Test strip Ql (U)Ord ered By: Randy Cabrales on 09-12-2024 Nitrite Ql (U) Negative Negative [facility] No Panel InformationOrdered By: Randy Cabrales on 09-12-2024 Delta Troponin T 4 [facility] Comment on above: If clinical suspicio n for ACS is high, suggest getting a third troponin. Otherwise, stress test or CTCA. 4 [facility] Troponin T High Sensitivity 23 ng/L High <14 [facility] 23 ng/L High <14 [facility] 28 U/L <32 [facility] 130 pg/mL <900 [facility] Partial Thromboplast Timeon 09-12-2024 aPTT Coag (Bld) [Time] 30.9 s Normal 24.1-36.2 [facility] Comment on above: Performed By: #### M 200.1000, L300.3900, L500.4050, L503.6005, L300.4310, L100.0100 ####[facility] [address] [place], [address] Protein Test strip Ql (U)Ord ered By: Randy Cabrales on 09-12-2024 Protein Ql (U) Negative Negative [facility] Prothrombin Time w/INRon INR Coag (PPP) [Relative time] 1.3 {INR} Normal [facility] Comment on above: Performed By: #### M 200.1000, L300.3900, L500.4050, L503.6005, L300.4310, L100.0100 ####[facility] [address] [place], [address] PT Coag (PPP) [Time] 16.1 s High 11.7-14.9 [facility] Comment on above: Performed By: #### M 200.1000, L300.3900, L500.4050, L503.6005, L300.4310, L100.0100 ####[facility] [address] [place], [address] Prothrombin timeOrdered By: Randy Cabrales on 09-12-2024 PT Coag (PPP) [Time] 16.1 s High 11.7-14.9 [facility] Serum globulin measurementOr dered By: Randy Cabrales on 09-12-2024 Globulin (S) [Mass/Vol] 2.6 g/dL 2.2-4.[address] [facility] Serum or plasma alanine obregon otransferase (ALT) measurementOrdered By: Randy Cabrales on 09-12-2024 ALT [Catalytic activity/Vol] 17 U/L <35 [facility] Serum or plasma albumin dane urement (mass/volume)Ordered By: Randy Cabrales on 09-12-2024 Albumin [Mass/Vol] 3.9 g/dL 3.4-4.8 [facility] Serum or plasma albumin/glob ulin mass ratioOrdered By: Randy Cabrales on 09-12-2024 Albumin/Globulin [Mass ratio] 1.5 {ratio} 0.9-2.4 [facility] Serum or plasma alkaline ruddy sphatase measurementOrdered By: Randy Cabrales on 09-12-2024 ALP [Catalytic activity/Vol] 78 U/L 35-104 [facility] Squamous epithelial cells de tection in urine sediment by light microscopyOrdered By: Randy Cabrales on 09-12-2024 Epithelial cells.squamous LM Ql (Urine sed) 0 SEEN /hpf 5-10 [facility] Total proteinOrdered By: Barrett Cabrales on 09-12-2024 Protein [Mass/Vol] 6.5 g/dL 5.9-8.4 [facility] Troponin T.cardiac High sens itivity method [Mass/Vol]Ordered By: Randy Cabrales on 09-12-2024 Troponin T High Sensitivity 4 Hour 20 ng/L High <14 [facility] Troponin T High Sensitivity 2 Hour 19 ng/L High <14 [facility] Troponin T.cardiac [Mass/vol ume] in Serum or Plasma by High sensitivity methodOrdered By: Randy Cabrales on 09-12-2024 Troponin T.cardiac High sensitivity method [Mass/Vol] 20 ng/L High <14 [facility] Troponin T.cardiac High sensitivity method [Mass/Vol] 19 ng/L High <14 [facility] Urinalysis, Completeon 09-12 RBC 0-5 SEEN Normal 0-5 [facility] Comment on above: Order Comment: BRUCE CTOR TO SPECIFY Performed By: #### M 100.2200, M100.678, L400.0001 ####[facility] [address] [place], [address] BACTERIA 0 SEEN Normal None Seen [facility] Comment on above: Order Comment: BRUCE CTOR TO SPECIFY Performed By: #### M 100.2200, M100.678, L400.0001 ####[facility] [address] [place], [address] EPI,SQUAMOUS 0 SEEN Normal 5-10 [facility] Comment on above: Order Comment: BRUCE CTOR TO SPECIFY Performed By: #### M 100.2200, M100.678, L400.0001 ####[facility] [address] [place], [address] Mucus Ql (Urine sed) 0 SEEN Normal [facility] Comment on above: Order Comment: COLLE CTOR TO SPECIFY Performed By: #### M 100.2200, M100.678, L400.0001 ####[facility] [address] [place], [address] WBC 0 SEEN Normal 0-5 [facility] Comment on above: Order Comment: COLLE CTOR TO SPECIFY Performed By: #### M 100.2200, M100.678, L400.0001 ####[facility] [address] [place], [address] Urine blood detectionOrdered By: Randy Cabrales on 09-12-2024 Urine Occult Blood 50 /ul High Negative [facility] Urine clarityOrdered By: Barrett Cabrales on 09-12-2024 Clarity (U) Clear Clear [facility] Urine color determinationOrd ered By: Randy Cabrales on 09-12-2024 Color (U) Yellow Yellow [facility] Urine cultureOrdered By: Barrett Cabrales on 09-12-2024 Bacteria identified Cx Nom (U) Culture exhibits no growth. [facility] Bacteria identified Cx Nom (U) Culture exhibits no growth. [facility] Urine glucose detectionOrder ed By: Randy Cabrales on 09-12-2024 Glucose Ql (U) Normal mg/dl Normal [facility] Urine leukocyte esterase det ection by dipstickOrdered By: Randy Cabrales on 09-12-2024 Leukocyte esterase Test strip Ql (U) Negative Negative [facility] Urine pHOrdered By: Randy gale on 09-12-2024 pH (U) 6.0 [pH] 5.0 - 8.0 [facility] Urine sediment bacteria coun t by microscopy (number/high power field)Ordered By: Randy Cabrales on 09-12-2024 Bacteria LM.HPF (Urine sed) [#/Area] 0 /[HPF] None Seen [facility] Urine specific gravity measu rementOrdered By: Randy Cabrales on 09-12-2024 Specific gravity (U) [Rel density] 1.010 1.002-1.030 [facility] Urine urobilinogen measureme ntOrdered By: Randy Cabrales on 09-12-2024 Urobilinogen Ql (U) Normal mg/dl Normal [facility] Urobilinogen Ql (U)Ordered B y: Randy Cabrales on 09-12-2024 Urine Urobilinogen Normal mg/dl Normal [facility] White blood cell countOrdere d By: Randy Cabrales on 09-12-2024 Urine WBC 0 SEEN /hpf 0-5 [facility] White blood cell count 0 SEEN /hpf 0-[address] [facility] aPTT Coag (PPP) [Time]Ordere d By: Randy Cabrales on 09-12-2024 aPTT Coag (Bld) [Time] 30.9 s 24.1-36.2 [facility] Thin prep Papanicolaou smear with manual screeningOrdered By: Jennifer Alba on 11-24-2023 Thin prep Papanicolaou smear with manual screening 104 mg/dL 74-106 [facility] Comment on above: MANAGEMENT OF PATIEN T CARE PER NURSING PROTOCOL Basophil percentageOrdered B y: Jennifer Alba on 11-15-2023 Chloride [Moles/Vol] 107 mmol/L 98-107 [facility] Glucose [Mass/Vol] 108 mg/dL 74-106 [facility] Comment on above: Fasting Glucose resu lt from 100 to 125 mg/dL suggests IMPAIRED HOMEOSTASIS per A.D.A. criteria. Hemoglobin (Bld) [Mass/Vol] 15.9 g/dL 12.0-15.0 [facility] Potassium [Moles/Vol] 4.0 mmol/L 3.5-5.1 [facility] Comment on above: Slight Hemolysis, Re sult may be falsely increased. Sodium [Moles/Vol] 140 mmol/L 136-145 [facility] WBC (Bld) [#/Vol] 10.6 10*3/uL 4.4-11.0 [facility] Determination of erythrocyte mean corpuscular volume (MCV)Ordered By: Jennifer Alba on 11-15-2023 MCV (RBC) [Entitic vol] 97.6 fL 81-[address] [facility] Erythrocyte distribution wid th ratioOrdered By: Jennifer Alba on 11-15-2023 Erythrocyte distribution width (RBC) [Ratio] 13.0 % 11.6-14.6 [facility] Erythrocyte distribution wid th standard deviationOrdered By: Jennifer Alba on 11-15-2023 Erythrocyte distribution width (RBC) [Entitic vol] 46.0 fL 35.1-43.9 [facility] Hematocrit Auto (Bld) [Volum e fraction]Ordered By: Jennifer Alba on 11-15-2023 Hematocrit (Bld) [Volume fraction] 48.2 % 37-47 [facility] Laboratory - Chemistry and C hemistry - challengeOrdered By: Jennifer Alba on 11-15-2023 CO2 [Moles/Vol] 27.0 mmol/L 21.0-32.0 [facility] Urea nitrogen/Creatinine [Mass ratio] 14.4 mg/mg 10-20 [facility] Laboratory - Hematology and Cell countsOrdered By: Jennifer Alab on 11-15-2023 MCH (RBC) [Entitic mass] 32.2 pg 27.0-32.0 [facility] MCHC (RBC) [Mass/Vol] 33.0 g/dL 32-36 [facility] Platelet mean volume (Bld) [Entitic vol] 10.9 fL 6.2-12.0 [facility] Platelets (Bld) [#/Vol] 264 10*3/uL 150-450 [facility] No Panel InformationOrdered By: Jennifer Alba on 11-15-2023 Estimated GFR (MDRD) Amer 37 mL/min >60 [facility] Comment on above: GFR Calc Estimated GFR (MDRD) Non-Af Amer 30 mL/min >60 [facility] Comment on above: Non- GFR Calc RBC Auto (Bld) [#/Vol]Ordere d By: Jennifer Alba on 11-15-2023 RBC (Bld) [#/Vol] 4.94 10*6/uL 4.2-5.4 [facility] Serum or plasma calcium dane urement (mass/volume)Ordered By: Jennifer Alba on 11-15-2023 Calcium [Mass/Vol] 9.1 mg/dL 8.5-10.1 [facility] Serum or plasma creatinine m easurement (mass/volume)Ordered By: Jennifer Alba on 11-15-2023 Creatinine [Mass/Vol] 1.81 mg/dL 0.55-1.02 [facility] Comment on above: The validity of the calculated GFR & GFRAA in patients over 70 years has not been determined. Clinical correlation is essential. Serum or plasma urea nitroge n measurement (mass/volume)Ordered By: Jennifer Alba on 11-15-2023 Urea nitrogen [Mass/Vol] 26 mg/dL 7-18 [facility] Thin prep Papanicolaou smear with manual screeningOrdered By: Jennifer Alba on 11-15-2023 Thin prep Papanicolaou smear with manual screening 6 5-15 [facility] Large Joint Arthro/Inj: L sh alfred jointon 11-11-2023 Jarod Godwin V, DO 11/11/2023 2:28 PM Large Joint Arthro/Inj: L shoulder joint Informed Consent Consent Obtained: Verbal [place] Protocol A moment to CARE was completed. [...] the patient voiced understanding of these instructions. [facility] ALBUMIN/CREAT RATIO RND URon 09-27-2023 Albumin DL <= 20 mg/L (U) [Mass/Vol] [facility] Albumin/Creatinine (U) [Mass ratio] <30 mg/g [facility] Creatinine (U) [Mass/Vol] 165.2 mg/dL 20.0 - 300.0 mg/dL [facility] CBC W Auto Differential pane l (Bld)on 09-27-2023 Basophils (Bld) [#/Vol] 0.03 10*3/uL <0.11 k/uL [facility] Basophils/100 WBC (Bld) 0.4 % [facility] Differential cell count method Nom (Bld) Auto [facility] Eosinophils (Bld) [#/Vol] 0.19 10*3/uL <0.46 k/uL [facility] Eosinophils/100 WBC (Bld) 2.5 % [facility] Erythrocyte distribution width (RBC) [Ratio] 13.1 % 11.5 - 15.0 % [facility] Hematocrit (Bld) [Volume fraction] 46.7 % High 36.0 - 46.0 % [facility] Hemoglobin (Bld) [Mass/Vol] 15.2 g/dL 11.5 - 15.5 g/dL [facility] Immature granulocytes (Bld) [#/Vol] <0.10 k/uL [facility] Immature granulocytes/100 WBC (Bld) 0.3 % [facility] Lymphocytes (Bld) [#/Vol] 2.36 10*3/uL 1.00 - 4.00 k/uL [facility] Lymphocytes/100 WBC (Bld) 30.9 % [facility] MCH (RBC) [Entitic mass] 31.9 pg 26. 0 - 34.0 pg [facility] MCHC (RBC) [Mass/Vol] 32.5 g/dL 30.5 - 36.0 g/dL [facility] MCV (RBC) [Entitic vol] 97.9 fL 80.0 - 100.0 fL [facility] Monocytes (Bld) [#/Vol] 0.82 10*3/uL <0.87 k/uL [facility] Monocytes/100 WBC (Bld) 10.7 % [facility] Neutrophils (Bld) [#/Vol] 4.22 10*3/uL 1.45 - 7.50 k/uL [facility] Neutrophils/100 WBC (Bld) 55.2 % [facility] Nucleated RBC (Bld) [#/Vol] <0.01 k/uL [facility] Nucleated RBC/100 WBC (Bld) [Ratio] 0.0 /100 WBC [facility] Platelet mean volume (Bld) [Entitic vol] 11.0 fL 9.0 - 12.7 fL [facility] Platelets (Bld) [#/Vol] 276 10*3/uL 150 - 400 k/uL [facility] RBC (Bld) [#/Vol] 4.77 10*6/uL 3.90 - 5.2 0 m/uL [facility] WBC (Bld) [#/Vol] 7.64 10*3/uL 3.70 - 11.00 k/uL [facility] Comprehensive metabolic 2000 panelon 09-27-2023 Albumin [Mass/Vol] 4.0 g/dL 3.9 - 4.9 g/dL [facility] ALP [Catalytic activity/Vol] 67 U/L 34 - 123 U/L [facility] ALT [Catalytic activity/Vol] 19 U/L 7 - 38 U/L [facility] Anion gap [Moles/Vol] 11 mmol/L 9 - 18 mmol/L [facility] AST [Catalytic activity/Vol] 25 U/L 13 - 35 U/L [facility] Bilirubin [Mass/Vol] 0.4 mg/dL 0.2 - 1 .3 mg/dL [facility] Calcium [Mass/Vol] 9.2 mg/dL 8.5 - 10. 2 mg/dL [facility] Chloride [Moles/Vol] 103 mmol/L 97 - 10 5 mmol/L [facility] CO2 [Moles/Vol] 27 mmol/L 22 - 30 mmol/L [facility] Creatinine [Mass/Vol] 1.66 mg/dL High 0.58 - 0.96 mg/dL [facility] Estimated Glomerular Filtration Rate 35 mL/min/1.73m Low >=60 mL/min/1.73 m [facility] Glucose [Mass/Vol] 99 mg/dL 74 - 99 mg/dL [facility] Potassium [Moles/Vol] 4.1 mmol/L 3.7 - 5.1 mmol/L [facility] Protein [Mass/Vol] 6.8 g/dL 6.3 - 8.0 g/dL [facility] Sodium [Moles/Vol] 141 mmol/L 136 - 144 mmol/L [facility] Urea nitrogen [Mass/Vol] 18 mg/dL 7 - 21 mg/dL [facility] LIPID PANEL, NONFASTINGon Cholesterol [Mass/Vol] 161 mg/dL <200 mg/dL [facility] HDL Cholesterol, Nonfasting 44 mg/dL >39 mg/dL [facility] LDL Cholesterol, Nonfasting 87 mg/dL <100 mg/dL [facility] LDL/HDL Ratio, Nonfasting 1.98 mg/dL <2.54 mg/dL [facility] Non HDL Cholesterol, Nonfasting 117 mg/dL <130 mg/dL [facility] Total Chol/HDL Ratio, Nonfasting 3.66 mg/dL <5.10 mg/dL [facility] Triglycerides, Nonfasting 152 mg/dL High <150 mg/dL [facility] VLDL Cholesterol, Nonfasting 30 mg/dL High <30 mg/dL [facility] Urinalysis complete panel (U )on 09-27-2023 Bacteria uL 2677.7 uL High Negative uL [facility] Bilirubin Ql (U) Negative Negative [facility] Calcium Oxalate Crystals Few Abnormal Non e Seen /HPF [facility] Clarity (Unsp spec) Clear Clear [facility] Color (U) Yellow Yellow [facility] Epithelial cells LM.HPF (Urine sed) [#/Area] Few [facility] Glucose Test strip (U) [Mass/Vol] Negative Negative [facility] Hemoglobin Ql (U) Negative Negative [facility] Hyaline casts (Urine sed) [#/Area] 1-3 /LPF Abnormal 0 /LPF [facility] Ketones Ql (U) Negative Negative [facility] Leukocyte esterase Test strip Ql (U) 1+ Abnormal Negative [facility] Nitrite Ql (U) Negative Negative [facility] pH (U) 5.5 [pH] <8.5 [facility] Protein (U) [Mass/Vol] Negative Negative [facility] RBC LM.HPF (Urine sed) [#/Area] 3-5 /HPF Abnormal 0-2 /HPF [facility] Specific gravity (U) [Rel density] 1.017 1.005 - 1.030 [facility] Urobilinogen Ql (U) 1.0 EU/dL 0.2-1.0 EU/dL [facility] WBC LM.HPF (Urine sed) [#/Area] 11-20 /HPF Abnormal 0-5 /HPF [facility] Absolute lymphocyte countOrd ered By: Marvel Pierce on 03-28-2023 Lymphocytes Auto (Unsp spec) [#/Vol] 3.15 10*3/uL 0.83-4.51 [facility] Basophil percentageOrdered B y: Marvel Pierce on 03-28-2023 Basophils/100 WBC (Bld) 0.4 % 0-[address] [facility] Eosinophils/100 WBC (Bld) 2.5 % 0-5 [facility] Neutrophils (Bld) [#/Vol] 5.6 10*3/uL 2.0-7.7 [facility] Neutrophils/100 WBC (Bld) 56.0 % 47-70 [facility] WBC (Bld) [#/Vol] 9.9 10*3/uL 4.4-11.0 [facility] Blood erythrocytes count (nu mber/volume)Ordered By: Marvel Pierce on 03-28-2023 RBC (Bld) [#/Vol] 4.49 10*6/uL 4.2-5.4 [facility] Blood hemoglobin measurement (mass/volume)Ordered By: Marvel Pierce on 03-28-2023 Hemoglobin (Bld) [Mass/Vol] 14.4 g/dL 12.0-15.0 [facility] Blood lymphocytes/100 leukoc ytesOrdered By: Marvel Pierce on 03-28-2023 Lymphocytes/100 WBC (Bld) 31.7 % 19-41 [facility] Blood monocytes/100 leukocyt esOrdered By: Marvel Pierce on 03-28-2023 Monocytes/100 WBC (Bld) 9.2 % 0-[address] [facility] Blood platelet mean volumeOr dered By: Marvel Pierce on 03-28-2023 Platelet mean volume (Bld) [Entitic vol] 10.3 fL 6.2-12.0 [facility] Determination of erythrocyte mean corpuscular volume (MCV)Ordered By: Marvel Pierce on 03-28-2023 MCV (RBC) [Entitic vol] 100.2 fL 81-[address] [facility] Hematocrit Auto (Bld) [Volum e fraction]Ordered By: Marvel Pierce on 03-28-2023 Hematocrit (Bld) [Volume fraction] 45.0 % 37-47 [facility] INR in Blood by Coagulation assayOrdered By: Marvel Pierce on 03-28-2023 INR Coag (Bld) [Relative time] 1.0 {INR} [facility] Laboratory - CoagulationOrde red By: Marvel Pierce on 03-28-2023 aPTT Coag (Bld) [Time] 27.9 s 24.1-36.2 [facility] PT Coag (PPP) [Time] 12.8 s 11.7-14.9 [facility] Laboratory - Hematology and Cell countsOrdered By: Marvel Pierce on 03-28-2023 Erythrocyte distribution width (RBC) [Entitic vol] 49.8 fL 35.1-43.9 [facility] Erythrocyte distribution width (RBC) [Ratio] 13.4 % 11.6-14.6 [facility] Immature granulocytes/100 WBC (Bld) 0.200 % 0.0-0.9 [facility] Comment on above: IG% - Immature Granu locytes (promyelocytes, myelocytes and metamyelocytes) > 1% indicates that a LEFT SHIFT is Present. MCH (RBC) [Entitic mass] 32.1 pg 27.0-32.0 [facility] Nucleated RBC/100 WBC (Bld) [Ratio] 0 % 0-5 [facility] MCHC Auto (RBC) [Mass/Vol]Or dered By: Marvel Pierce on 03-28-2023 MCHC (RBC) [Mass/Vol] 32.0 g/dL 32-36 [facility] Platelets bldOrdered By: Ye Pierce on 03-28-2023 Platelets (Bld) [#/Vol] 269 10*3/uL 150-450 [facility] INR in Blood by Coagulation assayOrdered By: Taylor Julian on 03-04-2023 INR Coag (Bld) [Relative time] 1.0 {INR} [facility] Laboratory - CoagulationOrde red By: Taylor Julian on 03-04-2023 aPTT Coag (Bld) [Time] 28.9 s 24.1-36.2 [facility] PT Coag (PPP) [Time] 13.5 s 11.7-14.9 [facility] Platelets bldOrdered By: Jesus Julian on 03-04-2023 Platelets (Bld) [#/Vol] 230 10*3/uL 150-450 [facility] HbA1c (Bld)on 02-28-2023 Average glucose Estimated from glycated hemoglobin (Bld) [Mass/Vol] 123 mg/dL [facility] HbA1c (Bld) [Mass fraction] 5.9 % High 4.3 - 5.6 % [facility] .Auto Diffon 12-21-2021 Basophil, Absolute 0.0 10 3/mcL Normal 0.0-0.2 [facility] ([place]) Comment on above: Performed By: #### Elda TALAVERA, BMP #### [address] [address] Basophils/100 WBC (Bld) 0.3 % Normal 0.0-2.5 [facility] ([place]) Comment on above: Performed By: #### Elda TALAVERA, BMP #### [address] [address] Eosinophil, Absolute 0.1 10 3/mcL Normal 0.0-0.4 [facility] ([place]) Comment on above: Performed By: #### Elda TALAVERA, BMP #### [address] [address] Eosinophils/100 WBC (Bld) 0.6 % Normal 0.0-7.0 [facility] ([place]) Comment on above: Performed By: #### Elda TALAVERA, BMP #### [address] [address] Lymphocyte, Absolute 2.8 10 3/mcL Normal 0.8-3.9 [facility] ([place]) Comment on above: Performed By: #### Elda TALAVERA, BMP #### [address] [address] Lymphocytes/100 WBC (Bld) 20.6 % Normal 10.0-50.0 [facility] ([place]) Comment on above: Performed By: #### Elda TALAVERA, BMP #### [address] [address] Monocyte, Absolute 1.5 10 3/mcL High 0.2-1.0 [facility] ([place]) Comment on above: Performed By: #### Elda TALAVERA, BMP #### [address] [place], [place] [address] Monocytes/100 WBC (Bld) 11.4 % Normal 1.7-13.0 [facility] ([place]) Comment on above: Performed By: #### G , BMP #### [id number] [place], [place] [address] Neutrophils/100 WBC (Bld) 67.1 % Normal 37.0-80.0 [facility] ([place]) Comment on above: Performed By: #### Elad TALAVERA, BMP #### [facility] [address] [address] .GFRon 12-21-2021 GFR Non- 25 ml/min/1.73sqm Normal [facility] ([place]) Comment on above: Result Comment: GFR [...] Performed By: #### G , BMP #### [address] [address] GFR 30 ml/min/1.73sqm Normal [facility] ([place]) Comment on above: Result Comment: GFR [...] Performed By: #### Elda TALAVERA, BMP #### [address] [address] .MDWon 12-21-2021 Monocyte Distribution Width 15.87 Normal 0.00-20.00 [facility] ([place]) Comment on above: Result Comment: For ED adult patients suspected of sepsis, MDW<=20.0 does not rule out sepsis or risk of sepsis Performed By: #### Elda TALAVERA, BMP #### [address] [address] .NEUABSon 12-21-2021 Neutrophil, Absolute 9.0 10 3/mcL High 2.9-6.2 [facility] ([place]) Comment on above: Performed By: #### Elda TALAVERA, BMP #### [address] [address] BMPon 12-21-2021 BUN/Creatinine Ratio 9 ratio Normal 7-27 [facility] ([place]) Comment on above: Performed By: #### Elda TALAVERA, BMP #### [address] [address] Calcium [Mass/Vol] 10.3 mg/dL High 8.4-10.2 [facility] ([place]) Comment on above: Performed By: #### Elda TALAVERA, BMP #### [address] [address] Chloride [Moles/Vol] 108 mmol/L High 98-107 [facility] ([place]) Comment on above: Performed By: #### lEda TALAVERA, BMP #### [address] [address] CO2 [Moles/Vol] 21 mmol/L Low 22-29 [facility] ([place]) Comment on above: Performed By: #### Elda TALAVERA, BMP #### [address] [address] Creatinine [Mass/Vol] 2.07 mg/dL High 0.55-1.02 [facility] ([place]) Comment on above: Performed By: #### G FR, BMP #### [address] [address] Electrolyte Balance 16.0 mEq/L High 4.0-15.0 [facility] ([place]) Comment on above: Performed By: #### G FR, BMP #### [address] [address] Glucose [Mass/Vol] 118 mg/dL High 70-105 [facility] ([place]) Comment on above: Performed By: #### G FR, BMP #### [address] [address] Potassium [Moles/Vol] 3.4 mmol/L Low 3.5-5.1 [facility] ([place]) Comment on above: Performed By: #### G FR, BMP #### [address] [address] Sodium [Moles/Vol] 145 mmol/L Normal 136-145 [facility] ([place]) Comment on above: Performed By: #### G FR, BMP #### [address] [address] Urea nitrogen [Mass/Vol] 19 mg/dL High 7-18 [facility] ([place]) Comment on above: Performed By: #### G FR, BMP #### [address] [address] CBCon 12-21-2021 Erythrocyte distribution width (RBC) [Ratio] 13.2 % Normal 11.5-14.5 [facility] ([place]) Comment on above: Performed By: #### G FR, BMP #### [address] [address] Hematocrit (Bld) [Volume fraction] 43.7 % Normal 37.0-47.0 [facility] ([place] Comment on above: Performed By: #### G FR, BMP #### [address] [address] Hgb 14.4 G/dL Normal 12.0-16.0 [facility] ([place] Comment on above: Performed By: #### G FR, BMP #### [address] [address] MCH (RBC) [Entitic mass] 31.5 pg High 27.0-31.2 [facility] ([place] Comment on above: Performed By: #### G FR, BMP #### [address] [address] MCHC 32.9 G/dL Low 33.0-37.0 [facility] ([place] Comment on above: Performed By: #### G FR, BMP #### [address] [address] MCV (RBC) [Entitic vol] 95.8 fL High 80.0-94.0 A [facility] ([place]) Comment on above: Performed By: #### Elda TALAVERA, BMP #### [address] [address] Platelet 272 10 3/mcL Normal 130-400 [facility] ([place]) Comment on above: Performed By: #### G , BMP #### [address] [address] Platelet mean volume (Bld) [Entitic vol] 9.0 fL Normal 7.4-10.4 [facility] ([place] Comment on above: Performed By: #### G FR, BMP #### [address] [address] RBC 4.56 10 6/mcL Normal 4.20-5.40 [facility] ([place] Comment on above: Performed By: #### G FR, BMP #### [address] [address] WBC 13.5 10 3/mcL High 4.6-10.8 [facility] ([place] Comment on above: Performed By: #### G FR, BMP #### Matt [address] [address] LABORATORYOrdered By: Dior Marshall on 12-21-2021 Basophil, [...] Chloride [Moles/Vol] 106 mmol/L 98-[address] [facility] Work Phone: Glucose [Mass/Vol] 77 mg/dL 74-[address] [facility] Work Phone: Potassium [Moles/Vol] 3.8 mmol/L 3.5-5.[address] [facility] Work Phone: Sodium [Moles/Vol] 140 mmol/L 136-145 [facility] Work Phone: Glucose Glucometer (BldC) [M ass/Vol]on 09-07-2021 Glucose [Mass/Vol] 111 mg/dL 70-110 [facility] Work Phone: Comment on above: MANAGEMENT OF PATIEN T CARE PER NURSING PROTOCOL Laboratory - Chemistry and C hemistry - challengeon 09-07-2021 CO2 [Moles/Vol] 31.0 mmol/L 21.0-32.0 [facility] Work Phone: Urea nitrogen/Creatinine [Mass ratio] 35.1 mg/mg 10-20 [facility] Work Phone: No Panel Informationon 09-07 SARS-CoV-2 Antigen (Rapid) [facility] Work Phone: Estimated Creatinine Clearance Calc 56.94 ml/min [facility] Work Phone: Estimated GFR (MDRD) Amer 84 mL/min >60 [facility] Work Phone: Comment on above: GFR Calc Estimated GFR (MDRD) Non-Af Amer 69 mL/min >60 [facility] Work Phone: Comment on above: Non- GFR Calc Serum or plasma calcium dane urement (mass/volume)on 09-07-2021 Calcium [Mass/Vol] 8.5 mg/dL 8.5-10.1 [facility] Work Phone: Serum or plasma creatinine m easurement (mass/volume)on 09-07-2021 Creatinine [Mass/Vol] 0.88 mg/dL 0.55-1.02 [facility] Work Phone: Comment on above: The validity of the calculated GFR & GFRAA in patients over 70 years has not been determined. Clinical correlation is essential. Serum or plasma urea nitroge n measurement (mass/volume)on 09-07-2021 Urea nitrogen [Mass/Vol] 31 mg/dL 7-18 [facility] Work Phone: Thin prep Papanicolaou smear with manual screeningon 09-07-2021 Thin prep Papanicolaou smear with manual screening 3 5-15 [facility] Work Phone: Absolute lymphocyte counton 09-03-2021 Lymphocytes Auto (Unsp spec) [#/Vol] 0.78 10*3/uL 0.83-4.51 [facility] Work Phone: Basophil percentageon 2021 Basophils/100 WBC (Bld) 0.1 % 0-[address] [facility] Work Phone: [phone] Eosinophils/100 WBC (Bld) 0.0 % 0-5 [facility] Work Phone: Neutrophils (Bld) [#/Vol] 8.2 10*3/uL 2.0-7.7 [facility] Work Phone: Neutrophils/100 WBC (Bld) 87.3 % 47-70 [facility] Work Phone: WBC (Bld) [#/Vol] 9.4 10*3/uL 4.4-11.0 [facility] Work Phone: Blood erythrocytes count (nu mber/volume)on 09-03-2021 RBC (Bld) [#/Vol] 4.19 10*6/uL 4.2-5.4 [facility] Work Phone: Blood hemoglobin measurement (mass/volume)on 09-03-2021 Hemoglobin (Bld) [Mass/Vol] 13.0 g/dL 12.0-15.0 [facility] Work Phone: Blood lymphocytes/100 leukoc yteson 09-03-2021 Lymphocytes/100 WBC (Bld) 8.3 % 19-41 [facility] Work Phone: Blood monocytes/100 leukocyt eson 09-03-2021 Monocytes/100 WBC (Bld) 3.2 % 0-[address] [facility] Work Phone: Blood platelet mean volumeon 09-03-2021 Platelet mean volume (Bld) [Entitic vol] 11.1 fL 6.2-12.0 [facility] Work Phone: Determination of erythrocyte mean corpuscular volume (MCV)on 09-03-2021 MCV (RBC) [Entitic vol] 95.2 fL 81-[address] [facility] Work Phone: Hematocrit Auto (Bld) [Volum e fraction]on 09-03-2021 Hematocrit (Bld) [Volume fraction] 39.9 % 37-47 [facility] Work Phone: Laboratory - Hematology and Cell countson 09-03-2021 Erythrocyte distribution width (RBC) [Entitic vol] 47.5 fL 35.1-43.9 [facility] Work Phone: Erythrocyte distribution width (RBC) [Ratio] 13.4 % 11.6-14.6 [facility] Work Phone: Immature granulocytes/100 WBC (Bld) 1.100 % 0.0-0.9 [facility] Work Phone: Comment on above: IG% - Immature Granu locytes (promyelocytes, myelocytes and metamyelocytes) > 1% indicates that a LEFT SHIFT is Present. MCH (RBC) [Entitic mass] 31.0 pg 27.0-32.0 [facility] Work Phone: Nucleated RBC/100 WBC (Bld) [Ratio] 0 % 0-5 [facility] Work Phone: MCHC Auto (RBC) [Mass/Vol]on 09-03-2021 MCHC (RBC) [Mass/Vol] 32.6 g/dL 32-36 [facility]: Platelets bldon 09-03-2021 Platelets (Bld) [#/Vol] 317 10*3/uL 150-450 [facility] Work Phone: Blood manual differential co mment interpretation (narrative result)on 09-01-2021 Manual differential comment Jacobo (Bld) [Interp] SCANNED [facility] Work Phone: No Panel Informationon 09-01 Atypical Lymphocytes RARE % [facility] Work Phone: Basophil percentageon 2021 Bilirubin [Mass/Vol] 0.60 mg/dL 0.20-1.00 [facility] Work Phone: Comment on above: For patients on eltr ombopag therapy, use of Dimension [place] TBIL is not recommended. Protein [Mass/Vol] 5.9 g/dL 6.4-8.2 [facility] Work Phone: Laboratory - Chemistry and C hemistry - challengeon 08-31-2021 ALP [Catalytic activity/Vol] 90 U/L 45-117 [facility] Work Phone: ALT [Catalytic activity/Vol] 64 U/L 13-56 [facility] Work Phone: Globulin (S) [Mass/Vol] 3.8 g/dL 2.2-4.2 [facility] Work Phone: Serum or plasma albumin dane urement (mass/volume)on 08-31-2021 Albumin [Mass/Vol] 2.1 g/dL 3.2-5.0 [facility] Work Phone: Serum or plasma albumin/glob ulin mass ratioon 08-31-2021 Albumin/Globulin [Mass ratio] 0.6 {ratio} 0.9-2.4 [facility] Work Phone: Thin prep Papanicolaou smear with manual screeningon 08-31-2021 Thin prep Papanicolaou smear with manual screening 65 U/L 15-37 [facility] Work Phone: No Panel Informationon 08-26 SARS-CoV-2 IgM Antibody Negative Negative [facility] Work Phone: Comment on above: This sample does not contain detectable SARS-CoV-2 IgMantibodies. This negative result does not rule out SARS-CoV-2 infection. Correlation with epidemiologic risk factorsand other clinical and laboratory findings is recommended.Serologic results should not be used as the sole basis todiagnose or exclude recent SARS-CoV-2 infection.This assay detects antibodies against SARS-CoV-2 spikeprotein including the receptor binding domain (RBD).Performed at: [address] [id number] Director: Chris Guy PhD, Phone: [phone] D-Dimer Quantitative (PE/DVT) 12.66 FEU/ug/m 0.27-0.49 [facility] Work Phone: Comment on above: CRITICAL VALUE VERIF IED. CALLED TO VIVI [id number] Annie Saleh.RESULTS READ BACK BY SAME . D-Dimer ELEVATED (>0.49): Additional studies and clinicalassessments are indicated to conclude diagnosis of:Deep Vein Thrombosis (DVT) or Pulmonary Embolism (PE) Serum or plasma severe acute respiratory syndrome coronavirus 2 (SARS-CoV-2) IgG antion 08-26-2021 SARS-CoV-2 (COVID-19) IgG IA Ql 0.88 INDEX 0.00-0.99 [facility] Work Phone: Comment on above: It [...] 1.0 Positive > or = 1.0Method: SIEMENS AtellDelfmems IM SARS SEMI-QUANT IGG ABS * This [...] due to past or present infection with [id number] coronovirus strains, such as coronavirus HKU1, NL63, OC43, or 229E. Basophil percentageon 2021 Basophil percentage 0-5 SEEN /hpf [facility] Work Phone: Lactate [Moles/Vol] 1.3 mmol/L 0.4-2.0 [facility] Work [facility]: Bilirubin Test strip Ql (U)o n 08-25-2021 Bilirubin Ql (U) Negative Negative [facility] Work Phone: Blood platelet adequacy dete ction by light microscopyon 08-25-2021 Platelets LM Ql (Bld) ADEQUATE ADEQ [facility] Work Phone: Culture, urineon 08-25-2021 Bacteria identified Cx Nom (U) Culture exhibits no growth. [facility] Work Phone: HCO3 (BldA) [Moles/Vol]on HCO3 (Bld) [Moles/Vol] 29 mmol/L 22-26 [facility] Work Phone: INR in Blood by Coagulation assayon 08-25-2021 INR Coag (Bld) [Relative time] 1.1 {INR} [facility] Work Phone: Ketones Test strip Ql (U)on 08-25-2021 Ketones Ql (U) Negative Negative [facility] Work Phone: Laboratory - Chemistry and C hemistry - challengeon 08-25-2021 Magnesium [Mass/Vol] 2.2 mg/dL [facility] Work Phone: Comment on above: Performed at: [facility] [address] [id number] Director: Chris Guy PhD, Phone: [phone] Natriuretic peptide B (Bld) [Mass/Vol] 124.5 pg/mL 0-100 [facility] Work Phone: CO2 [Moles/Vol] 31 mmol/L 23-33 [facility] Work Phone: Laboratory - Coagulationon 0 08-25-2021 aPTT Coag (Bld) [Time] 29.2 s 24.1-36.[address] [facility] Work Phone: PT Coag (PPP) [Time] 14.0 s 11.7-14.9 [facility] Work Phone: Laboratory - Hematology and Cell countson 08-25-2021 Anisocytosis Ql (Bld) RARE [facility] Work Phone: Laboratory - Microbiology an d Antimicrobial susceptibilityon 08-25-2021 SARS-CoV-2 (COVID-19) RNA GERARDO+probe Ql (Unsp spec) Not detected Not Detect [facility] Work Phone: Comment on above: Normal Reference Ran ge: Not DetectedMethod:(RT-PCR) real-time reverse transcriptase PCRLuminex DWAYNE Instrument*The Food and Drug Administration (FDA) has issued an Emergency Use Authorization (EAU) for the [employer] SARS-CoV-2 Assay for the rapid detection of [...] No growth in 5 days. [facility] Work Phone: Macrocytes detectionon 08-25 Macrocytes Ql (Bld) RARE [facility] Work Phone: Mucus LM Ql (Urine sed)on Mucus Ql (Urine sed) 0 SEEN /hpf [facility] Work Phone: Nitrite Test strip Ql (U)on 08-25-2021 Nitrite Ql (U) Positive Negative [facility] Work Phone: No Panel Informationon 08-25 Methicillin-Resist S.aureus DNA PCR Negative Negative [facility] Work Phone: Bed Mix Venous Bld PCO2 at Pat Temp 45.0 mmHg 41-51 [facility] Work Phone: Blood Gas Liter Flow 8.0 /min [facility] Work Phone: Blood Gas Specimen Type TYRON [facility] Work Phone: Oxygen Delivery Device Cannula [facility] Work Phone: Venous Blood Base Excess 5 mmol/L -1.0-3.5 [facility] Work Phone: Ovalocyte detectionon 2021 Ovalocytes LM Ql (Bld) RARE Wo [facility] Work Phone: PO2 venouson 08-25-2021 Oxygen (BldV) [Partial pressure] 26 mm[Hg] 25-40 [facility] Work Phone: Protein Test strip Ql (U)on 08-25-2021 Protein Ql (U) 15 mg/dl Negative [facility] Work Phone: RBC morphologyon 08-25-2021 RBC morphology finding Nom (Bld) N CHROM NORMAL NORM C&C [facility] Work Phone: Serum procalcitonin measurem enton 08-25-2021 Procalcitonin [Mass/Vol] 0.15 ng/mL 0.00-0.09 [facility] Work Phone: Comment on above: A [...] (Urine sed) 0 SEEN /hpf [facility] Work Phone: Urine blood detectionon RBC Ql (U) 10 /ul Negative [facility] Work Phone: RBC Ql (U) 0 SEEN /hpf [facility] Work Phone: Urine clarityon 08-25-2021 Clarity (U) Clear Clear [facility] Work Phone: Urine color determinationon 08-25-2021 Color (U) Yellow Yellow [facility] Work Phone: Urine glucose detectionon Glucose Ql (U) Normal mg/dl Normal [facility] Work Phone: Urine leukocyte esterase det ection by dipstickon 08-25-2021 Leukocyte esterase Test strip Ql (U) Negative Negative [facility] Work Phone: Urine pHon 08-25-2021 pH (U) 6.0 [pH] [facility] Work Phone: Urine sediment bacteria coun t by microscopy (number/high power field)on 08-25-2021 Bacteria LM.HPF (Urine sed) [#/Area] 3 /[HPF] None Seen [facility] Work Phone: Urine specific gravity measu rementon 08-25-2021 Specific gravity (U) [Rel density] 1.010 [facility] Work Phone: Urobilinogen Auto test strip Ql (U)on 08-25-2021 Urobilinogen Ql (U) 1 mg/dl Normal [facility] Work Phone: Vital signson 08-25-2021 Oxygen saturation in Blood 49 % 50-70 [facility] Work Phone: pH measurementon 08-25-2021 pH (Unsp spec) 7.42 [pH] 7.32-7.42 [facility] Work Phone: .GFRon 02-11-2021 GFR 43 ml/min/1.73sqm Normal [facility] ([place]) Comment on above: Result Comment: GFR [...] Performed By: #### B MP, GFR #### [place] [address] GFR Non- 35 ml/min/1.73sqm Normal [facility] ([place]) Comment on above: Result Comment: GFR Population [...] Performed By: #### B MP, GFR #### [address] [address] BMPon 02-11-2021 BUN/Creatinine Ratio 13 ratio Normal 7-27 [facility] ([place]) Comment on above: Performed By: #### B MP, GFR #### [address] [address] Calcium [Mass/Vol] 9.6 mg/dL Normal 8.4-10.2 [facility] ([place]) Comment on above: Performed By: #### B MP, GFR #### [address] [address] Chloride [Moles/Vol] 106 mmol/L Normal 98-107 [facility] ([place]) Comment on above: Performed By: #### B MP, GFR #### [address] [address] CO2 [Moles/Vol] 30 mmol/L High 22-29 [facility] ([place]) Comment on above: Performed By: #### B MP, GFR #### [address] [address] Creatinine [Mass/Vol] 1.51 mg/dL High 0.55-1.02 [facility] ([place]) Comment on above: Performed By: #### B MP, GFR #### [address] [address] Electrolyte Balance 6.0 mEq/L Normal [facility] ([place]) Comment on above: Performed By: #### B MP, GFR #### [address] [address] Glucose [Mass/Vol] 99 mg/dL Normal 70-105 [facility] ([place]) Comment on above: Performed By: #### B MP, GFR #### [address] [address] Potassium [Moles/Vol] 5.8 mmol/L High 3.5-5.1 [facility] ([place]) Comment on above: Performed By: #### B MP, GFR #### [place] [id number] Sodium [Moles/Vol] 142 mmol/L Normal 136-145 [facility] ([place]) Comment on above: Performed By: #### B MP, GFR #### [facility] [address] [place] [address] Urea nitrogen [Mass/Vol] 19 mg/dL High 7-18 [facility] ([place]) Comment on above: Performed By: #### B MP, GFR #### [facility] [address] [place] [address] XR Pelvis and Hip - left AP and Lateral frogon 11-20-2020 IMPRESSION: 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 Correlation with patient history and additional evaluation with bone scan may be helpful. Supervisor Composing Room: [facility] Transcribe Date/Time: Nov 20 2020 5:57P Dictated by : ALTAGRACIA WEIR MD This examination was interpreted and the report reviewed and electronically signed by: ALTAGRACIA WEIR MD on Nov 20 2020 6:01PM [facility] DIVISION OF RADIOLOGY * * *Final [...] since having a bladder stimulater placed in [facility]. TECHNIQUE: Images: XR HIP 3V PELV+ AP/LAT [...] joints are intact. DIVISION OF RADIOLOGY Provider, [facility] Marisela [facility] - 11/20/2020 * * *Final Report* * [...] since having a bladder stimulater placed in [facility]. TECHNIQUE: Images: XR HIP 3V PELV+ AP/LAT [...] evaluation with bone scan may be helpful. Supervisor Composing Room[facility] Transcribe Date/Time: Nov 20 2020 5:57P Dictated by : ALTAGRACIA WEIR MD This examination was interpreted and the report reviewed and electronically signed by: ALTAGRACIA WEIR MD on Nov 20 2020 6:01PM [facility] Radiology Study observation (narrative) [facility] XR Pelvis and Hip - left AP and Lateral frogOrdered By: [facility] Provider on 11-20-2020 [facility] BUNon 01-06-2019 Urea nitrogen mass conc 13 mg/dL Normal 7-21 [facility] Comment on above: Performed By: #### B SAYRA, CRET1 #### [facility] Routine Lab [address] [place] [address] Creatinineon 01-06-2019 Creatinine mass conc 1.06 mg/dL High 0.58-0.96 [facility] Comment on above: Performed By: #### B SAYRA, CRET1 #### [facility]ine Lab [address] [place], [place] [address] Creatinine mass conc mg/dL Normal [facility] Comment on above: Performed By: #### B SAYRA, CRET1 #### [facility] [address] [place], [place] [address] Creatinine mass conc 54 . Normal [facility] Comment on above: Performed By: #### B UN, CRET1 #### [facility]ine [facility] [address] [place], [place] [address] Office Visit: est annualon 1 Fall risk assessment No Invalid Interpretation Code [facility] Tobacco smoking status NHIS Never Invalid Interpretation Code [facility] Tobacco use CPHS Current every day smoker Invalid Interpretation Code [facility] Office Visit: est annualon 0 10-17-2015 Breast Mammogram screening Normal Bilateral Invalid Interpretation Code [facility] Office Visit: est annualon 0 07-18-2014 General categories [Interpretation] of Cervical or vaginal smear or scraping by Cyto stain Normal Invalid Interpretation Code [facility] Vital Signs Date Time Vital Sign Value Performing Clinician Facility 04-30-2025 21:26-0400 Body temperature 97.2 [degF] Broderick Mily Work Phone: [facility] 04-30-2025 21:26-0400 Diastolic blood pressure 61 mm[Hg] Broderick Mily Work Phone: [facility] 04-30-2025 21:26-0400 Heart rate 95 /min Broderick Suazopkins Work Phone: [facility] 04-30-2025 21:26-0400 Respiratory rate 30 /min Broderick Arteagakins Work Phone: [facility] 04-30-2025 21:26-0400 SaO2% (BldA) [Mass fraction] 91 % Broderick Arteagakins Work Phone: [facility] 04-30-2025 21:26-0400 Systolic blood pressure 108 mm[Hg] Broderick Mily Work Phone: [facility] 04-30-2025 19:14-0400 Inhaled oxygen flow rate 2 L/min Broderick Arteagakins Work Phone: [facility] 04-30-2025 17:49-0400 Body height 157.48 cm Broderick Mily Work Phone: [facility] 04-30-2025 17:49-0400 Body mass index (BMI) [Ratio] 44.4 kg/m2 Broderick Minor Work Phone: [facility] 04-30-2025 17:49-0400 Body weight 110.3 kg Broderick Minor Work Phone: [facility] 03-11-2025 11:21-0400 Body height 157.48 cm Broderick Suazopkins Work Phone: [facility] 03-11-2025 11:21-0400 Body mass index (BMI) [Ratio] 44.8 kg/m2 Broderick Suazopkins Work Phone: [facility] 03-11-2025 11:21-0400 Body weight 111.13 kg Broderick Minor Work Phone: [facility] 03-11-2025 11:21-0400 Diastolic blood pressure 76 mm[Hg] Broderick Suazopkins Work Phone: [facility] 03-11-2025 11:21-0400 Heart rate 104 /min Broderick Suazopkins Work Phone: [facility] 03-11-2025 11:21-0400 Systolic blood pressure 107 mm[Hg] Broderick Suazopkins Work Phone: [facility] 02-27-2025 14:51-0400 Body height 157.48 cm Broderick Minor Work Phone: [facility] 02-27-2025 14:51-0400 Body mass index (BMI) [Ratio] 44.8 kg/m2 Broderick Suazopkins Work Phone: [facility] 02-27-2025 14:51-0400 Body weight 111.13 kg Broderick Mily Work Phone: [facility] 02-27-2025 14:51-0400 Diastolic blood pressure 85 mm[Hg] Broderick Suazopkins Work Phone: [facility] 02-27-2025 14:51-0400 Heart rate 85 /min Broderick Suazopkins Work Phone: [facility] 02-27-2025 14:51-0400 Systolic blood pressure 114 mm[Hg] Broderick Suazopkins Work Phone: [facility] 01-31-2025 10:00-0400 Body height 157.48 cm Broderick Suazopkins Work Phone: [facility] 01-31-2025 10:00-0400 Body mass index (BMI) [Ratio] 44.8 kg/m2 Broderick Suazopkins Work Phone: [facility] 01-31-2025 10:00-0400 Body temperature 97.4 [degF] Broderick Mily Work Phone: [facility] 01-31-2025 10:00-0400 Body weight 111.13 kg Broderick Chaves Work Phone: [facility] 01-31-2025 10:00-0400 Diastolic blood pressure 76 mm[Hg] Broderick Mily Work Phone: [facility] 01-31-2025 10:00-0400 Heart rate 88 /min Broderick Suazopkins Work Phone: [facility] 01-31-2025 10:00-0400 Respiratory rate 18 /min Broderick Suazopkins Work Phone: [facility] 01-31-2025 10:00-0400 SaO2% (BldA) [Mass fraction] 93 % Broderick Chaves Work Phone: [facility] 01-31-2025 10:00-0400 Systolic blood pressure 115 mm[Hg] Broderick Arteagakins Work Phone: [facility] 2025 10:17-0400 Body mass index (BMI) [Ratio] 44.9 kg/m2 Broderick Suazopkins Work Phone: [facility] 2025 10:17-0400 Body temperature 96.6 [degF] Broderick Mily Work Phone: [facility] 2025 10:17-0400 Body weight 111.58 kg Broderick Minor Work Phone: [facility] 2025 10:17-0400 Diastolic blood pressure 65 mm[Hg] Broderick Minor Work Phone: [facility] 2025 10:17-0400 Heart rate 89 /min Broderick Minor Work Phone: [facility] 2025 10:17-0400 Respiratory rate 16 /min Broedrick Minor Work Phone: [facility] 2025 10:17-0400 Systolic blood pressure 110 mm[Hg] Broderick Minor Work Phone: [facility] 01-25-2025 10:11-0400 Body mass index (BMI) [Ratio] 44.04 kg/m2 Meagan Yusuf PA-C Work Phone: [facility] 01-25-2025 10:11-0400 Body temperature 98.2 [degF] Meagan Yusuf PA-C Work Phone: [facility] 01-25-2025 10:11-0400 Body weight 112.04 kg Meagan Yusuf PA-C Work Phone: [facility] 01-25-2025 10:11-0400 Diastolic blood pressure 70 mm[Hg] Meagan Yusuf PA-C Work Phone: [facility] 01-25-2025 10:11-0400 Heart rate 85 /min Meagan Yusuf PA-C Work Phone: [facility] 01-25-2025 10:11-0400 Respiratory rate 18 /min Meagan Yusuf PA-C Work Phone: [facility] 01-25-2025 10:11-0400 SaO2% (BldA) [Mass fraction] 93 % Meagan Yusuf PA-C Work Phone: [facility] 01-25-2025 10:11-0400 Systolic blood pressure 110 mm[Hg] Meagan Yusuf PA-C Work Phone: [facility] 01-17-2025 11:18-0400 Body mass index (BMI) [Ratio] 43.86 kg/m2 Meagan Yusuf PA-C Work Phone: [facility] 01-17-2025 11:18-0400 Body temperature 99.5 [degF] Meagan Yusuf PA-C Work Phone: [facility] 01-17-2025 11:18-0400 Body weight 111.58 kg Meagan Yusuf PA-C Work Phone: [facility] 01-17-2025 11:18-0400 Diastolic blood pressure 68 mm[Hg] Meagan Yusuf PA-C Work Phone: [facility] 01-17-2025 11:18-0400 Heart rate 79 /min Meagan Yusuf PA-C Work Phone: [facility] 01-17-2025 11:18-0400 Respiratory rate 18 /min Meagan Yusuf PA-C Work Phone: [facility] 01-17-2025 11:18-0400 SaO2% (BldA) [Mass fraction] 93 % Meagan Yusuf PA-C Work Phone: [facility] 01-17-2025 11:18-0400 Systolic blood pressure 120 mm[Hg] Meagan Yusuf PA-C Work Phone: [facility] 01-11-2025 11:56-0400 Body temperature 97.4 [degF] Broderick Minor Work Phone: [facility] 01-11-2025 11:56-0400 Diastolic blood pressure 66 mm[Hg] Broderick Minor Work Phone: [facility] 01-11-2025 11:56-0400 Heart rate 73 /min Broderick Minor Work Phone: [facility] 01-11-2025 11:56-0400 Respiratory rate 16 /min Broderick Minor Work Phone: [facility] 01-11-2025 11:56-0400 SaO2% (BldA) [Mass fraction] 95 % Broderick Suazopkins Work Phone: [facility] 01-11-2025 11:56-0400 Systolic blood pressure 113 mm[Hg] Broderick Mily Work Phone: [facility] 01-11-2025 05:48-0400 Body mass index (BMI) [Ratio] 46.7 kg/m2 Broderick Suazopkins Work Phone: [facility] 01-11-2025 05:48-0400 Body weight 115.1 kg Broderick Suazopkins Work Phone: [facility] 01-09-2025 17:00-0400 Inhaled oxygen flow rate 2 L/min Broderick Chaves Work Phone: [facility] 01-09-2025 11:12-0400 Body height 157.48 cm Broderick Arteagakins Work Phone: [facility] 01-08-2025 20:00-0400 Body temperature 98.2 [degF] Broderick Chaves Work Phone: [facility] 01-08-2025 20:00-0400 Diastolic blood pressure 72 mm[Hg] Broderick Arteagakins Work Phone: [facility] 01-08-2025 20:00-0400 Heart rate 87 /min Broderick Arteagakins Work Phone: [facility] 01-08-2025 20:00-0400 Inhaled oxygen flow rate 2 L/min Broderick Mily Work Phone: [facility] 01-08-2025 20:00-0400 Respiratory rate 18 /min Broderick Suazopkins Work Phone: [facility] 01-08-2025 20:00-0400 SaO2% (BldA) [Mass fraction] 100 % Broderick Minor Work Phone: [facility] 01-08-2025 20:00-0400 Systolic blood pressure 114 mm[Hg] Broderick Suazopkins Work Phone: [facility] 01-08-2025 16:29-0400 Body height 157.48 cm Broderick Suazopkins Work Phone: [facility] 01-08-2025 16:29-0400 Body mass index (BMI) [Ratio] 46.7 kg/m2 Broderick Suazopkins Work Phone: [facility] 01-08-2025 16:29-0400 Body weight 116 kg Broderick Suazopkins Work Phone: [facility] 12-18-2024 11:52-0400 Body mass index (BMI) [Ratio] 45.11 kg/m2 Homer Bradford MD Work Phone: [facility] 12-18-2024 11:52-0400 Body weight 114.76 kg Homer Bradford MD Work Phone: [facility] 12-18-2024 11:52-0400 Diastolic blood pressure 70 mm[Hg] Homer Bradford MD Work Phone: [facility] 12-18-2024 11:52-0400 Heart rate 87 /min Homer Bradford MD Work Phone: [facility] 12-18-2024 11:52-0400 Respiratory rate 18 /min Homer Bradford MD Work Phone: [facility] 12-18-2024 11:52-0400 SaO2% (BldA) [Mass fraction] 94 % Homer Bradford MD Work Phone: [facility] 12-18-2024 11:52-0400 Systolic blood pressure 104 mm[Hg] Homer Bradford MD Work Phone: [facility] 11-14-2024 13:09-0400 Body temperature 98.7 [degF] Broderick Minor Work Phone: [facility] 11-14-2024 13:09-0400 Diastolic blood pressure 64 mm[Hg] Broderick Minor Work Phone: [facility] 11-14-2024 13:09-0400 Heart rate 87 /min Broderick Minor Work Phone: [facility] 11-14-2024 13:09-0400 Respiratory rate 16 /min Broderick Minor Work Phone: [facility] 11-14-2024 13:09-0400 SaO2% (BldA) [Mass fraction] 97 % Broderick Minor Work Phone: [facility] 11-14-2024 13:09-0400 Systolic blood pressure 105 mm[Hg] Broderick Minor Work Phone: [facility] 11-14-2024 06:51-0400 Body mass index (BMI) [Ratio] 49.8 kg/m2 Broderick Minor Work Phone: [facility] 11-14-2024 06:51-0400 Body weight 123.7 kg Broderick Suazopkins Work Phone: [facility] 11-12-2024 03:53-0400 Diastolic blood pressure 68 mm[Hg] Broderick Minor Work Phone: [facility] 11-12-2024 03:53-0400 Heart rate 90 /min Broderick Minor Work Phone: [facility] 11-12-2024 03:53-0400 Respiratory rate 18 /min Broderick Minor Work Phone: [facility] 11-12-2024 03:53-0400 SaO2% (BldA) [Mass fraction] 94 % Broderick Minor Work Phone: [facility] 11-12-2024 03:53-0400 Systolic blood pressure 96 mm[Hg] Broderick Mily Work Phone: [facility] 11-12-2024 03:51-0400 Body temperature 97.7 [degF] Broderick Mily Work Phone: [facility] 11-12-2024 02:26-0400 Body mass index (BMI) [Ratio] 47.8 kg/m2 Broderick Suazopkins Work Phone: [facility] 11-12-2024 02:26-0400 Body weight 118.6 kg Broderick Suazopkins Work Phone: [facility] 11-07-2024 11:15-0400 Body temperature 98.2 [degF] Broderick Chaves Work Phone: [facility] 11-07-2024 11:15-0400 Diastolic blood pressure 47 mm[Hg] Broderick Chaves Work Phone: [facility] 11-07-2024 11:15-0400 Heart rate 80 /min Broderick Suazopkins Work Phone: [facility] 11-07-2024 11:15-0400 Respiratory rate 16 /min Broderick Mily Work Phone: [facility] 11-07-2024 11:15-0400 SaO2% (BldA) [Mass fraction] 94 % Broderick Chaves Work Phone: [facility] 11-07-2024 11:15-0400 Systolic blood pressure 111 mm[Hg] Broderick Mily Work Phone: [facility] 11-07-2024 06:00-0400 Body mass index (BMI) [Ratio] 48.4 kg/m2 Broderick Chaves Work Phone: [facility] 11-07-2024 06:00-0400 Body weight 119.3 kg Broderick Chaves Work Phone: [facility] 11-04-2024 14:55-0400 Body temperature 97.8 [degF] Broderick Chaves Work Phone: [facility] 11-04-2024 14:55-0400 Diastolic blood pressure 70 mm[Hg] Broderikc Arteagakins Work Phone: [facility] 11-04-2024 14:55-0400 Heart rate 93 /min Broderick Minor Work Phone: [facility] 11-04-2024 14:55-0400 Respiratory rate 16 /min Broderick Minor Work Phone: [facility] 11-04-2024 14:55-0400 SaO2% (BldA) [Mass fraction] 96 % Broderick Minor Work Phone: [facility] 11-04-2024 14:55-0400 Systolic blood pressure 109 mm[Hg] Broderick Minor Work Phone: [facility] 11-04-2024 12:30-0400 Body height 157.48 cm Broderick Minor Work Phone: [facility] 11-04-2024 12:30-0400 Body mass index (BMI) [Ratio] 47.1 kg/m2 Broderick Minor Work Phone: [facility] 11-04-2024 12:30-0400 Body weight 116.9 kg Broderick Minor Work Phone: [facility] 09-21-2024 15:16-0500 Body mass index (BMI) [Ratio] 45.4 kg/m2 Broderick Minor Work Phone: [facility] 09-21-2024 15:12-0500 Body temperature 98 [degF] Broderick Minor Work Phone: [facility] 09-21-2024 15:12-0500 Diastolic blood pressure 56 mm[Hg] rBoderick Minor Work Phone: [facility] 09-21-2024 15:12-0500 Heart rate 84 /min Broderick Minor Work Phone: [facility] 09-21-2024 15:12-0500 Respiratory rate 17 /min Broderick Suazopkins Work Phone: [facility] 09-21-2024 15:12-0500 SaO2% (BldA) [Mass fraction] 92 % Broderick Minor Work Phone: [facility] 09-21-2024 15:12-0500 Systolic blood pressure 125 mm[Hg] Broderick Chaves Work Phone: [facility] 09-18-2024 15:49-0500 Body height 161.29 cm Broderick Minor Work Phone: [facility] 09-18-2024 15:49-0500 Body weight 118.3 kg Broderick Minor Work Phone: [facility] 09-18-2024 15:42-0500 Inhaled oxygen flow rate 2 L/min Broderick Minor Work Phone: [facility] 03-22-2024 12:58-0400 Body height 159.5 cm Meagan Yusuf PA-C Work Phone: [facility] 03-22-2024 12:58-0400 Body mass index (BMI) [Ratio] 47.78 kg/m2 Meagan Yusuf PA-C Work Phone: [facility] 03-22-2024 12:58-0400 Body temperature 97.5 [degF] Meagan Yusuf PA-C Work Phone: [facility] 03-22-2024 12:58-0400 Body weight 121.56 kg Meagan Yusuf PA-C Work Phone: [facility] 03-22-2024 12:58-0400 Diastolic blood pressure 72 mm[Hg] Meagan Yusuf PA-C Work Phone: [facility] 03-22-2024 12:58-0400 Heart rate 90 /min Meagan Yusuf PA-C Work Phone: [facility] 03-22-2024 12:58-0400 Respiratory rate 20 /min Meagan Yusuf PA-C Work Phone: [facility] 03-22-2024 12:58-0400 SaO2% (BldA) [Mass fraction] 93 % Meagan Yusuf PA-C Work Phone: [facility] 03-22-2024 12:58-0400 Systolic blood pressure 122 mm[Hg] Meagan Yusuf PA-C Work Phone: [facility] 11-24-2023 11:52-0400 Body temperature 98 [degF] [facility] 11-24-2023 11:52-0400 Diastolic blood pressure 53 mm[Hg] [facility] 11-24-2023 11:52-0400 Heart rate 80 /min [facility] 11-24-2023 11:52-0400 Respiratory rate 16 /min [facility] 11-24-2023 11:52-0400 SaO2% (BldA) [Mass fraction] 93 % [facility] 11-24-2023 11:52-0400 Systolic blood pressure 101 mm[Hg] [facility] 11-24-2023 09:25-0400 Body height 161.29 cm [facility] 11-24-2023 09:25-0400 Body mass index (BMI) [Ratio] 46.5 kg/m2 [facility] 11-24-2023 09:25-0400 Body weight 121 kg [facility] 11-14-2023 14:03-0400 Body mass index (BMI) [Ratio] 46.73 kg/m2 Homer Bradford MD Work Phone: [facility] 11-14-2023 14:03-0400 Body weight 121.56 kg Homer Bradford MD Work Phone: [facility] 11-14-2023 14:03-0400 Diastolic blood pressure 64 mm[Hg] Homer Bradford MD Work Phone: [facility] 11-14-2023 14:03-0400 Heart rate 70 /min Homer Bradford MD Work Phone: [facility] 11-14-2023 14:03-0400 Respiratory rate 16 /min Homer Bradford MD Work Phone: [facility] 11-14-2023 14:03-0400 Systolic blood pressure 104 mm[Hg] Homer Bradford MD Work Phone: [facility] 09-27-2023 13:16-0400 Body height 161.3 cm Meagan Yusuf PA-C Work Phone: [facility] 09-27-2023 13:16-0400 Body temperature 98.6 [degF] Meagan Yusuf PA-C Work Phone: [facility] 09-27-2023 13:16-0400 Body weight 120.66 kg Meagansterling Yusuf PA-C Work Phone: [facility] 09-27-2023 13:16-0400 Diastolic blood pressure 70 mm[Hg] Meagan Yusuf PA-C Work Phone: [facility] 09-27-2023 13:16-0400 Heart rate 95 /min Meagan Yusuf PA-C Work Phone: [facility] 09-27-2023 13:16-0400 Respiratory rate 18 /min Meagan Yusuf PA-C Work Phone: [facility] 09-27-2023 13:16-0400 Systolic blood pressure 102 mm[Hg] Meagan Yusuf PA-C Work Phone: [facility] 03-28-2023 13:07-0400 Diastolic blood pressure 57 mm[Hg] Dr. Homer Bradford Work Phone: [facility] 03-28-2023 13:07-0400 Heart rate 86 /min Dr. Homer Bradford Work Phone: [facility] 03-28-2023 13:07-0400 Respiratory rate 15 /min Dr. Homer Bradford Work Phone: [facility] 03-28-2023 13:07-0400 SaO2% (BldA) [Mass fraction] 98 % Dr. Homer Bradford Work Phone: [facility] 03-28-2023 13:07-0400 Systolic blood pressure 112 mm[Hg] Dr. Homer Bradford Work Phone: [facility] 03-28-2023 10:30-0400 Inhaled oxygen flow rate 2 L/min Dr. Homer Bradford Work Phone: [facility] 03-28-2023 10:10-0400 Body height 161.[address] Homer Bradford Work Phone: [facility] 03-28-2023 10:10-0400 Body mass index (BMI) [Ratio] 47 kg/m2 Dr. Homer Bradford Work Phone: [facility] 03-28-2023 10:10-0400 Body temperature 98.1 [degF] Dr. Homer Bradford Work Phone: [facility] 03-28-2023 10:10-0400 Body weight 122.[address] Homer Bradford Work Phone: [facility] 03-11-2023 13:45-0400 Body height 161.3 cm Caterina Dry Ridge PA-C Work Phone: [facility] 03-11-2023 13:45-0400 Body temperature 97 [degF] Caterina Dry Ridge PA-C Work Phone: [facility] 03-11-2023 13:45-0400 Body weight 122.47 kg Caterina [place] PA-C Work Phone: [facility] 03-11-2023 13:45-0400 Diastolic blood pressure 72 mm[Hg] Caterina Dry [place] PA-C Work Phone: [facility] 03-11-2023 13:45-0400 Heart rate 84 /min Caterina Anjelica PA-C Work Phone: [facility] 03-11-2023 13:45-0400 Respiratory rate 22 /min Caterina [place] PA-C Work Phone: [facility] 03-11-2023 13:45-0400 SaO2% (BldA) [Mass fraction] 95 % Caterina Anjelica PA-C Work Phone: [facility] 03-11-2023 13:45-0400 Systolic blood pressure 112 mm[Hg] Caterina Anjelica PA-C Work Phone: [facility] 03-04-2023 09:06-0400 Body height 160.[address] Homer Bradford Work Phone: [facility] 03-04-2023 09:06-0400 Body mass index (BMI) [Ratio] 47.5 kg/m2 Dr. Homer Bradford Work Phone: [facility] 03-04-2023 09:06-0400 Body temperature 97.2 [degF] Dr. Homer Bradford Work Phone: [facility] 03-04-2023 09:06-0400 Body weight 121.[address] Homer Bradford Work Phone: [facility] 03-04-2023 09:06-0400 Diastolic blood pressure 69 mm[Hg] Dr. Homer Bradford Work Phone: [facility] 03-04-2023 09:06-0400 Heart rate 92 /min Dr. Homer Bradford Work Phone: [facility] 03-04-2023 09:06-0400 Respiratory rate 22 /min Dr. Homer Bradford Work Phone: [facility] 03-04-2023 09:06-0400 SaO2% (BldA) [Mass fraction] 97 % Dr. Homer Bradford Work Phone: [facility] 03-04-2023 09:06-0400 Systolic blood pressure 103 mm[Hg] Dr. Homer Bradford Work Phone: [facility] 02-28-2023 13:58-0400 Body temperature 98.1 [degF] Meagan MAY-C Work Phone: [facility] 02-28-2023 13:58-0400 Body weight 122.47 kg Meagan MAY-C Work Phone: [facility] 02-28-2023 13:58-0400 Diastolic blood pressure 66 mm[Hg] Meagan MAY-C Work Phone: [facility] 02-28-2023 13:58-0400 Heart rate 90 /min Meagan MAY-C Work Phone: [facility] 02-28-2023 13:58-0400 Respiratory rate 20 /min Meagan Yusuf PA-C Work Phone: [facility] 02-28-2023 13:58-0400 SaO2% (BldA) [Mass fraction] 92 % Meagan Yusuf PA-C Work Phone: [facility] 02-28-2023 13:58-0400 Systolic blood pressure 100 mm[Hg] Meagan Yusuf PA-C Work Phone: [facility] 12-01-2022 15:41-0400 Heart rate 112 /min [facility] 12-01-2022 15:41-0400 Respiratory rate 18 /min [facility] 12-01-2022 15:41-0400 SaO2% (BldA) [Mass fraction] 96 % [facility] 12-01-2022 14:27-0400 Body height 160.02 cm [facility] 12-01-2022 14:27-0400 Body mass index (BMI) [Ratio] 49.6 kg/m2 [facility] 12-01-2022 14:27-0400 Body temperature 98.2 [degF] [facility] 12-01-2022 14:27-0400 Body weight 127 kg [facility] 12-01-2022 14:27-0400 Diastolic blood pressure 84 mm[Hg] [facility] 12-01-2022 14:27-0400 Systolic blood pressure 129 mm[Hg] [facility] 10-21-2022 12:24-0400 Body temperature 98.4 [degF] Meagan Yusuf PA-C Work Phone: [facility] 10-21-2022 12:24-0400 Diastolic blood pressure 76 mm[Hg] Meagan Yusuf PA-C Work Phone: [facility] 10-21-2022 12:24-0400 Heart rate 96 /min Meagan Yusuf PA-C Work Phone: [facility] 10-21-2022 12:24-0400 Respiratory rate 20 /min Meagan Yusuf PA-C Work Phone: [facility] 10-21-2022 12:24-0400 Systolic blood pressure 124 mm[Hg] Meagan Yusuf PA-C Work Phone: [facility] 10-04-2022 18:18-0400 Body weight 123.38 kg Azam Fam MD Work Phone: [facility] 10-04-2022 18:18-0400 Diastolic blood pressure 78 mm[Hg] Azam Fam MD Work Phone: [facility] 10-04-2022 18:18-0400 Heart rate 90 /min Azam Fam MD Work Phone: [facility] 10-04-2022 18:18-0400 Respiratory rate 20 /min Azam Fam MD Work Phone: [facility] 10-04-2022 18:18-0400 Systolic blood pressure 124 mm[Hg] Azam Fam MD Work Phone: [facility] 09-12-2022 11:07-0500 Diastolic blood pressure 60 mm[Hg] [facility] 09-12-2022 11:07-0500 Heart rate 98 /min [facility] 09-12-2022 11:07-0500 SaO2% (BldA) [Mass fraction] 99 % [facility] 09-12-2022 11:07-0500 Systolic blood pressure 126 mm[Hg] [facility] 09-12-2022 10:53-0500 Body height 157.48 cm [facility] 09-12-2022 10:53-0500 Body mass index (BMI) [Ratio] 50.3 kg/m2 [facility] 09-12-2022 10:53-0500 Body temperature 98 [degF] [facility] 09-12-2022 10:53-0500 Body weight 124.73 kg [facility] 09-12-2022 10:53-0500 Respiratory rate 24 /min [facility] 07-15-2022 13:48-0500 Body weight 119.3 kg Meagan Yusuf PA-C Work Phone: [facility] 07-15-2022 13:48-0500 Diastolic blood pressure 60 mm[Hg] Meagan Yusuf PA-C Work Phone: [facility] 07-15-2022 13:48-0500 Heart rate 76 /min Meagan Yusuf PA-C Work Phone: [facility] 07-15-2022 13:48-0500 Respiratory rate 18 /min Meagan Yusuf PA-C Work Phone: [facility] 07-15-2022 13:48-0500 Systolic blood pressure 102 mm[Hg] Meagan Yusuf PA-C Work Phone: [facility] 06-09-2022 15:03-0500 Body height 162.6 cm Homer Bradford MD Work Phone: [facility] 06-09-2022 15:03-0500 Body weight 119.3 kg Homer Bradford MD Work Phone: [facility] 06-09-2022 15:03-0500 Diastolic blood pressure 60 mm[Hg] Homer Bradford MD Work Phone: [facility] 06-09-2022 15:03-0500 Heart rate 72 /min Homer Bradford MD Work Phone: [facility] 06-09-2022 15:03-0500 Respiratory rate 18 /min Homer Bradford MD Work Phone: [facility] 06-09-2022 15:03-0500 Systolic blood pressure 104 mm[Hg] Homer Bradford MD Work Phone: [facility] 02-25-2022 09:48-0400 Body height 160.[address] Homer Bradford Work Phone: [facility] Work Phone: 02-25-2022 09:48-0400 Body mass index (BMI) [Ratio] 43.5 kg/m2 Dr. Homer Bradford Work Phone: [facility] Work Phone: 02-25-2022 09:48-0400 Body temperature 97.2 [degF] Dr. Homer Bradford Work Phone: [facility] Work Phone: 02-25-2022 09:48-0400 Body weight 111.[address] Homer Bradford Work Phone: [facility] Work Phone: 02-25-2022 09:48-0400 Diastolic blood pressure 56 mm[Hg] Dr. Homer Bradford Work Phone: [facility] Work Phone: 02-25-2022 09:48-0400 Heart rate 79 /min Dr. Homer Bradford Work Phone: [facility] Work Phone: 02-25-2022 09:48-0400 Respiratory rate 19 /min Dr. Homer Bradford Work Phone: [facility] Work Phone: 02-25-2022 09:48-0400 SaO2% (BldA) [Mass fraction] 96 % Dr. Homer Bradford Work Phone: [facility] Work Phone: 02-25-2022 09:48-0400 Systolic blood pressure 92 mm[Hg] Dr. Homer Bradford Work Phone: [facility] Work Phone: 02-23-2022 14:24-0400 Body weight 102.[address] Homer Bradford Work Phone: [facility] Work Phone: 02-23-2022 14:24-0400 Heart rate 77 /min Dr. Homer Bradford Work Phone: [facility] Work Phone: 02-23-2022 14:24-0400 SaO2% (BldA) [Mass fraction] 95 % Dr. Homer Bradford Work Phone: [facility] Work Phone: 01-05-2022 06:21-0400 Body height 160.[address] Homer Bradford Work Phone: [facility] Work Phone: 01-05-2022 06:21-0400 Body mass index (BMI) [Ratio] 41.1 kg/m2 Dr. Homer Bradford Work Phone: [facility] Work Phone: 01-05-2022 06:21-0400 Body temperature 98.2 [degF] Dr. Homer Bradofrd Work Phone: [facility] Work Phone: 01-05-2022 06:21-0400 Body weight 105.[address] Homer Bradford Work Phone: [facility] Work Phone: 01-05-2022 06:21-0400 Diastolic blood pressure 56 mm[Hg] Dr. Homer Bradford Work Phone: [facility] Work Phone: 01-05-2022 06:21-0400 Heart rate 75 /min Dr. Homer Bradford Work Phone: [facility] Work Phone: 01-05-2022 06:21-0400 Respiratory rate 18 /min Dr. Homer Bradford Work Phone: [facility] Work Phone: 01-05-2022 06:21-0400 SaO2% (BldA) [Mass fraction] 92 % Dr. Homer Bradford Work Phone: [facility] Work Phone: 01-05-2022 06:21-0400 Systolic blood pressure 107 mm[Hg] Dr. Homer Bradford Work Phone: [facility] Work Phone: 12-21-2021 15:57-0400 Body height 167.7 cm ROMEO SIERRA MD [facility] 12-21-2021 15:57-0400 Body temperature 98.6 [degF] ROMEO SIERRA MD [facility] 12-21-2021 15:57-0400 Body weight 104.5 kg ROMEO SIERRA MD [facility] 12-21-2021 15:57-0400 Diastolic blood pressure 66 mm[Hg] ROMEO SIERRA MD [facility] 12-21-2021 15:57-0400 Heart rate 116 /min ROMEO SIERRA MD [facility] 12-21-2021 15:57-0400 Respiratory rate 24 /min ROMEO SIERRA MD [facility] 12-21-2021 15:57-0400 Systolic blood pressure 137 mm[Hg] ROMEO SIERRA MD [facility] 11-27-2021 14:13-0400 Body temperature 98.2 [degF] Homer Bradford MD Work Phone: [facility] 11-27-2021 14:13-0400 Body weight 106.05 kg Homer Bradford MD Work Phone: [facility] 11-27-2021 14:13-0400 Diastolic blood pressure 64 mm[Hg] Homer Bradford MD Work Phone: [facility] 11-27-2021 14:13-0400 Heart rate 68 /min Homer Bradford MD Work Phone: [facility] 11-27-2021 14:13-0400 Respiratory rate 20 /min Homer Bradford MD Work Phone: [facility] 11-27-2021 14:13-0400 Systolic blood pressure 96 mm[Hg] Homer Bradford MD Work Phone: [facility] 10-14-2021 16:24-0400 Body temperature 97.2 [degF] Dick Dodd MD Work Phone: [facility] 10-14-2021 16:24-0400 Body weight 108.68 kg Dick Dodd MD Work Phone: [facility] 10-14-2021 16:24-0400 Diastolic blood pressure 62 mm[Hg] Dick Dodd MD Work Phone: [facility] 10-14-2021 16:24-0400 Heart rate 76 /min Dick Dodd MD Work Phone: [facility] 10-14-2021 16:24-0400 Respiratory rate 18 /min Dick Dodd MD Work Phone: [facility] 10-14-2021 16:24-0400 SaO2% (BldA) [Mass fraction] 95 % Dick Ddod MD Work Phone: [facility] 10-14-2021 16:24-0400 Systolic blood pressure 112 mm[Hg] Dick Dodd MD Work Phone: [facility] 09-28-2021 10:03-0400 Body height 160.[address] Homer Bradford Work Phone: [facility] Work Phone: 09-28-2021 10:03-0400 Body mass index (BMI) [Ratio] 42.5 kg/m2 Dr. Homer Bradford Work Phone: [facility] Work Phone: 09-28-2021 10:03-0400 Body temperature 98.6 [degF] Dr. Homer Bradford Work Phone: [facility] Work Phone: 09-28-2021 10:03-0400 Body weight 108.[address] Homer Bradford Work Phone: [facility] Work Phone: 09-28-2021 10:03-0400 Diastolic blood pressure 76 mm[Hg] Dr. Homer Bradford Work Phone: [facility] Work Phone: 09-28-2021 10:03-0400 Heart rate 82 /min Dr. Homer Bradford Work Phone: [facility] Work Phone: 09-28-2021 10:03-0400 Respiratory rate 19 /min Dr. Homer Bradford Work Phone: [facility] Work Phone: 09-28-2021 10:03-0400 SaO2% (BldA) [Mass fraction] 94 % Dr. Homer Bradford Work Phone: [facility] Work Phone: 09-28-2021 10:03-0400 Systolic blood pressure 117 mm[Hg] Dr. Homer Bradford Work Phone: [facility] Work Phone: 09-07-2021 10:31-0500 Body temperature 97.8 [degF] Dr. Homer Bradford Work Phone: [facility] Work Phone: 09-07-2021 10:31-0500 Diastolic blood pressure 67 mm[Hg] Dr. Homer Bradford Work Phone: [facility] Work Phone: 09-07-2021 10:31-0500 Heart rate 69 /min Dr. Homer Bradford Work Phone: [facility] Work Phone: 09-07-2021 10:31-0500 Respiratory rate 17 /min Dr. Homer Bradford Work Phone: [facility] Work Phone: 09-07-2021 10:31-0500 SaO2% (BldA) [Mass fraction] 94 % Dr. Homer Bradford Work Phone: [facility] Work Phone: 09-07-2021 10:31-0500 Systolic blood pressure 89 mm[Hg] Dr. Homer Bradford Work Phone: [facility] Work Phone: 09-07-2021 04:04-0500 Body weight 109.[address] Homer Bradford Work Phone: [facility] Work Phone: 08-29-2021 09:33-0500 Inhaled oxygen concentration 45 % Dr. Homer Bradford Work Phone: [facility] Work Phone: 08-25-2021 19:16-0500 Body mass index (BMI) [Ratio] 43.7 kg/m2 Dr. Homer Bradford Work Phone: [facility] Work Phone: 04-26-2017 14:20-0400 BMI (Body Mass Index) 42.62 kg/m2 Dorothy Fletcher MD [facility] 04-26-2017 14:20-0400 Body Temperature 97.4 [degF] Dorothy Fletcher MD [facility] 04-26-2017 14:20-0400 Body Temperature 97.39 [degF] Dorothy Fletcher MD [facility] 04-26-2017 14:20-0400 BP Diastolic 81 mm[Hg] Dorothy Fletcher MD [facility] 04-26-2017 14:20-0400 BP Systolic 123 mm[Hg] oDrothy Fletcher MD [facility] 04-26-2017 14:20-0400 Height 160.02 cm Dorothy Fletcher MD [facility] 04-26-2017 14:20-0400 Pulse (Heart Rate) 58 /min Dorothy Fletcher MD [facility] 04-26-2017 14:20-0400 Respiratory Rate 16 /min Dorothy Fletcher MD [facility] 04-26-2017 14:20-0400 Weight 109.14 kg Dorothy Fletcher MD [facility] 04-26-2017 14:0400 Weight 109.13 kg Dorothy Fletcher MD [facility] Encounters Encounter Date Encounter Type Care Provider Facility Start: 05-24-2025 End: 05-28-2025 Evaluation and management of inpatient Carol Pruitt Facility:[facility] Start: 05-24-2025 ambulatory Shani Pelaez [facility] Start: 05-24-2025 End: 05-24-2025 ambulatory HOMER BRADFORD Facility:[facility] Start: 05-06-2025 ambulatory Homer Bradford Facility :[facility] Start: 04-30-2025 End: 04-30-2025 Emergency department patient visit Dr. Ortiz Pinto MD -Emergency Department Work Phone: Start: 04-27-2025 ambulatory Homer Sanchez Facility :[facility] Start: 04-04-2025 End: 04-04-2025 ambulatory ORTIZ MASSEY Facility:[facility] Start: 03-27-2025 End: 03-28-2025 Telephone encounter Homer Bradford MD Work Phone: [facility] Comment on above: Letter Start: 03-26-2025 End: 03-26-2025 Refill Homer Bradford MD Work Phone: [facility] [place] Comment on above: Refill Request Start: 03-25-2025 End: 03-25-2025 Telephone encounter Homer Bradford MD Work Phone: [facility] [place] Comment on above: Letter Start: 03-21-2025 End: 03-21-2025 Patient encounter procedure Alize Wilcox OD Work Phone: Ophthalmology Comment on above: Type 2 diabetes elroy itus without retinopathy (HCC) (Primary Dx); Nuclear sclerosis of both eyes; Regular astigmatism of both eyes; Presbyopia; Meibomian gland dysfunction (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 eyes Start: 03-21-2025 End: 03-21-2025 ambulatory ALIZE Michel JERI Facility:[facility] Start: 03-19-2025 End: 03-19-2025 Telephone encounter Zoila Sage MSW Navigation Start: 03-19-2025 End: 04-16-[address] Vijay Love MD -[facility] Work Phone: Start: 03-19-2025 End: 04-16-2025 ambulatory Broderick Suazopkins Work Phone: -[facility] Start: 03-14-2025 End: 03-14-2025 Orders Only Ortiz Massey MD Work Phone: Orthopaedics Comment on above: Left shoulder pain, unspecified chronicity (Primary Dx) Start: 03-11-2025 End: 03-11-[address] Jennifer Alba MD -[facility] Work Phone: Start: 03-11-2025 End: 03-11-2025 Dr. Jennifer Alba MD -[facility] Work Phone: Start: 03-11-2025 End: 03-11-2025 ambulatory Broderick Suazopkins Work Phone: -[facility] Start: 03-05-2025 End: 03-15-2025 Telephone encounter Zoila Sage MSW Navigation Start: 03-04-2025 End: 03-05-2025 Telephone encounter Zoila Sage PUBLIC RELATIONS COUNSELOR Navigation Start: 03-01-2025 End: 03-02-2025 Refill Homer Bradford MD Work Phone: [facility] Comment on above: Refill Request Start: 02-27-2025 End: 02-27-[address] Jennifer Alba MD -[facility] Work Phone: Start: 02-27-2025 End: 02-27-2025 Dr. Jennifer Alba MD -[facility] Work Phone: Start: 02-27-2025 End: 02-27-2025 ambulatory Broderick Suazopkins Work Phone: -[facility] Start: 02-21-2025 Encounter for genera l adult medical examination without abnormal findings HOMER BRADFORD [facility] Start: 02-21-2025 Patient encounter status Jatinder Bradford MD Work Phone: [facility] Start: 02-21-2025 End: 02-21-2025 ambulatory HOMER BRADFORD Facility:[facility] Start: 02-19-2025 End: 03-17-[address] Vijay Love MD -Wound Healing [facility] ter Work Phone: Start: 02-19-2025 Dr. Vijay Love MD -[facility] Work Phone: Start: 02-19-2025 End: 03-17-2025 ambulatory Broderick Suazopkins Work Phone: -[facility] Start: 01-31-2025 End: 01-31-2025 Patient encounter procedure Taylor RASHID -[facility] Work Phone: Start: 01-31-2025 End: 01-31-2025 ambulatory Broderick Suazopkins Work Phone: -[facility] Start: 01-31-2025 End: 01-31-2025 Taylor RASHID -[facility] Work Phone: Start: 2025 Non-patient / Non-visit Dr. Vijay Love MD -[facility] Start: 2025 Dr. Vijay Love MD -[facility] Start: 2025 End: 02-14-[address] Vijay Love MD -[facility] Work Phone: Start: 2025 End: 02-14-2025 Dr. Vijay Love MD -[facility] Work Phone: Start: 2025 End: 02-14-2025 Refill Homer Bradford MD Work Phone: [facility] [place] Comment on above: Refill Request Start: 01-28-2025 End: 2025 Follow-up encounter Meagan MAY-C Work Phone: [facility] [place] Start: 01-25-2025 End: 01-25-2025 Office outpatient visit 15 minutes Meagan Yusuf PA-C Work Phone: [facility] [place] Comment on above: Urinary frequency (P rimary Dx); Dysuria; Pressure injury of sacral region, stage 2 (HCC) Start: 01-25-2025 End: 01-25-2025 [facility] MEAGAN YUSUF Facility:[facility] Start: 01-21-2025 End: 01-25-2025 Follow-up encounter Meagan MAY-C Work Phone: [facility] [place] Comment on above: Results Refill Request Start: 01-17-2025 End: 01-17-2025 ambulatory MEAGAN YUSUF Facility:[facility] Start: 01-17-2025 End: 01-17-2025 Office outpatient visit 25 minutes Meagan MAY-C Work Phone: [facility] Comment on above: Sepsis, due to unspe [...] (HCC) Start: 01-17-2025 End: 01-17-2025 ambulatory MEAGAN YUSUF Facility:[facility] Start: 01-15-2025 Non-patient / Non-visit Dr. Jennifer bermudez MD -[facility] Work Phone: Start: 01-15-2025 Dr. Jennifer Alba MD -[facility] Work Phone: Start: 01-11-2025 End: 01-11-2025 Telephone encounter Homer Bradford MD Work Phone: [facility] Comment on above: Forms (CMN) Start: 01-11-2025 Non-patient / Non-visit Dr. Peter Herbert MD -[place] [facility] Work Phone: Start: 01-11-2025 Dr. Peter Herbert MD -[facility] Work Phone: Start: 01-10-2025 ambulatory Peter Keon Facility: [facility] Start: 01-10-2025 Non-patient / Non-visit Dr. Wilfredo vallejo MD -[facility] Start: 01-10-2025 Dr. Wilfredo Shelby MD -[facility] Start: 01-10-2025 Non-patient / Non-visit Dr. Dallin camargo [facility] Start: 01-10-2025 Dr. Dallin Christopher [facility] Start: 01-09-2025 End: 01-09-2025 Chart abstracting Homer Bradford MD Work Phone: [facility] Comment on above: Received Outside Med ical Records ([facility] Admission records) Start: 01-09-2025 Non-patient / Non-visit Dr. Guevara [facility] Work Phone: Start: 01-09-2025 Dr. Luis Antonio Navarro [facility] Work Phone: Start: 01-08-2025 ambulatory Lauren Vela Facility :[facility] Start: 01-08-2025 End: 01-11-2025 Evaluation and management of inpatient Broderick Minor Work Phone: [facility] Work Phone: Start: 01-08-2025 End: 01-11-2025 Dr. Lauren Vela MD -Intensive Care Un it Work Phone: Start: 01-07-2025 End: 01-07-2025 Refill Homer Bradford MD Work Phone: [facility] [place] Comment on above: Refill Request Start: 12-26-2024 End: 12-26-2024 ambulatory Homer Bradford MD Work Phone: [facility] [place] Comment on above: A Message from Dr. Lianne murguia Start: 12-26-2024 End: 12-26-2024 E-mail encounter from caregiver Homer Bradford MD Work Phone: [facility] [place] Start: 12-25-2024 End: 01-04-2025 Telephone encounter Homer Bradford MD Work Phone: [facility] [place] Comment on above: Results Start: 12-18-2024 End: 12-18-2024 [facility] HOMER BRADFORD Facility:[facility] Start: 12-18-2024 End: 12-18-2024 Ophthalmic examination and evaluation Homer Bradford MD Work Phone: [facility] Start: 12-18-2024 End: 12-18-2024 Patient encounter procedure Homer Bradford MD Work Phone: [facility] [place] Comment on above: Type 2 diabetes elroy itus with stage 3b chronic kidney disease, without long-term current use of insulin ([facility]) (Primary Dx); Diabetic eye exam ([facility]); Mixed hyperlipidemia; History of CVA (cerebrovascular accident); Chronic obstructive pulmonary disease, unspecified COPD type ([facility]); Nodule of left lung; Chronic insomnia; Migraine without aura and without status migrainosus, not intractable; Tardive dyskinesia; Hypotension, unspecified hypotension type; Gastroesophageal reflux disease without esophagitis; ASHD (arteriosclerotic heart disease); Paroxysmal atrial fibrillation ([facility]); Stage 3b chronic kidney disease ([facility]); Bilateral leg edema; Bipolar affective disorder, remission status unspecified ([facility]); Major depressive disorder, recurrent episode, moderate ([facility]); Low vitamin B12 level; Obesity, Class III, BMI >= 40; Smoker; Mixed incontinence urge and stress (male)(female); Medication management Start: 12-18-2024 End: 12-18-2024 ambulatory HOMER BRADFORD Facility:[facility] Start: 12-07-2024 End: 12-11-2024 Telephone encounter Homer Bradford MD Work Phone: [facility] Comment on above: Orders (for incontin ence supplies) Start: 11-29-2024 End: 11-29-2024 Chart abstracting Rajani Granger MA [facility] Comment on above: ER F/U ([facility] ER ) Start: 11-14-2024 End: 11-14-2024 Dr. Wyatt Amos DO -Emergency Department Work Phone: Start: 11-14-2024 End: 11-14-2024 [facility] Start: 11-13-2024 End: 11-13-2024 Chart abstracting Rajani Granger MA [facility] Comment on above: ER F/U ([facility] 11/13/19) Start: 11-12-2024 End: 11-12-2024 Dr. Randy Cabrales MD -Emergency [facility] Work Phone: Start: 11-12-2024 End: 11-12-2024 Emergency department patient visit Homer Bradford Facility:[facility] Start: 11-07-2024 Dr. Azam kevin [facility] Work Phone: Start: 11-06-2024 Dr. Azam kevin [facility] Work Phone: Start: 11-05-2024 Dr. Azam kevin [facility] Work Phone: Start: 11-05-2024 End: 11-05-2024 Chart abstracting Homer Bradford MD Work Phone: [facility] Comment on above: ER Discharge Summary (H&P/) Start: 11-04-2024 End: 11-07-2024 Evaluation and management of inpatient Dr. Lauren Vela MD -Medical Surgical 3 Work Phone: Start: 11-04-2024 ambulatory Homer Bradford [place] Start: 11-04-2024 Non-patient / Non-visit Dr. Lauren Vela MD [facility] Work Phone: Start: 11-04-2024 End: 11-07-2024 Dr. Azam Guillen [facility] Surgical 3 Work Phone: Start: 09-21-2024 Non-patient / Non-visit Dr. Marco Jones MD [facility] Work Phone: Start: 09-21-2024 Dr. Marco Jones MD [facility] Work Phone: Start: 09-20-2024 Non-patient / Non-visit Dr. Marco Jones MD [facility] Work Phone: Start: 09-20-2024 Dr. Marco Jones MD [facility] Work Phone: Start: 09-19-2024 Non-patient / Non-visit Dr. Marco Jones MD [facility] Work Phone: Start: 09-19-2024 Dr. Marco Jones MD [facility] Work Phone: Start: 09-18-2024 Non-patient / Non-visit Dr. Latisha Collins MD [facility] Work Phone: Start: 09-18-2024 Dr. Guevara Collins MD [facility] Work Phone: Start: 09-17-2024 End: 09-17-2024 Chart abstracting Homer Bradford MD Work Phone: [facility] Comment on above: Outside Neurology Start: 09-17-2024 Non-patient / Non-visit Dr. Latisha Collins MD [facility] Work Phone: Start: 09-17-2024 Dr. Guevara Collins MD [facility] Work Phone: Start: 09-16-2024 Non-patient / Non-visit Dr. Latisha Collins MD [facility] Work Phone: Start: 09-16-2024 Dr. Guevara Collins MD [facility] Work Phone: Start: 09-15-2024 Non-patient / Non-visit Dr. Latisha Collins MD [facility] Work Phone: Start: 09-15-2024 Dr. Guevara Collins MD [facility] Work Phone: Start: 09-14-2024 Non-patient / Non-visit Dr. Latisha Collins MD [facility] Work Phone: Start: 09-14-2024 Dr. Guevara Collins MD -[facility] Work Phone: Start: 09-13-2024 Non-patient / Non-visit Dr. Latisha Collins MD [facility] Work Phone: Start: 09-13-2024 Dr. Guevara Collins MD [facility] Work Phone: Start: 09-13-2024 ambulatory Homer Bradford Facility :[facility] Start: 09-13-2024 Non-patient / Non-visit Dr. Osiris Garcia MD -[facility] Start: 09-13-2024 Dr. Genoveva Garcia MD [facility] Start: 09-13-2024 End: 09-13-2024 Chart abstracting Homer Bradford MD Work Phone: [facility] Comment on above: ER Discharge Summary (H&P) Start: 09-12-2024 Non-patient / Non-visit Dr. Wilfredo rendon [facility] Work Phone: Start: 09-12-2024 ambulatory Wilfredo Denton Facility:[facility] Start: 09-12-2024 End: 09-21-2024 Evaluation and management of inpatient Dr. Marco Jones MD -[facility] Work Phone: Start: 09-12-2024 End: 09-21-2024 Dr. Marco Jones MD -[facility] Work Phone: Start: 06-20-2024 End: 06-20-2024 Refill Homer Bradford MD Work Phone: [facility] [place] Comment on above: Refill Request Start: 04-27-2024 End: 04-28-2024 Refill Homer Bradford MD Work Phone: [facility] [place] Comment on above: Refill Request Start: 03-29-2024 End: 03-29-2024 Refill Homer Bradford MD Work Phone: [facility] [place] Comment on above: Refill Request Start: 03-26-2024 End: 03-26-2024 Chart abstracting Homer Bradford MD Work Phone: [facility] [place] Comment on above: Outside Derm Start: 03-23-2024 End: 03-26-2024 Telephone encounter Meagan Yusuf PA-C Work Phone: [facility] [place] Comment on above: Results Start: 03-22-2024 End: 03-22-2024 Patient encounter procedure Meagan Yusuf PA-C Work Phone: [facility] [place] Comment on above: Well adult exam (Lara [...] encounter status Meagan Yusuf PA-C Work Phone: [facility] Work Phone: Start: 03-02-2024 End: 03-05-2024 Telephone encounter Homer Bradford MD Work Phone: [facility] [place] Comment on above: CMN for incontinent supplies Start: 02-01-2024 Telephone encounter Homer Bradford MD Work Phone: [facility] Comment on above: re-fax form Home Car e Delivered Start: 01-30-2024 Telephone encounter Homer Bradford MD Work Phone: [facility] Comment on above: Orders Start: 01-18-2024 Telephone encounter Rajani Granger MA [facility] Comment on above: Orders (HomeCare Del ivered ) Start: 01-04-2024 Refill Homer helms MD Work Phone: [facility] Comment on above: Refill Request Start: 12-24-2023 Telephone encounter Homer Bradford MD Work Phone: [facility] Comment on above: Results Start: 12-23-2023 Documentation procedure Mammog marcelo Coordinator [facility] Start: 12-23-2023 Letter encounter Mammography Coordinator [facility] Start: 12-22-2023 End: 12-22-2023 Subsequent hospital visit by physician Screen Mammo [facility] Comment on above: Encounter for screen ing mammogram for breast cancer [Z12.31] Start: 11-29-2023 End: 11-29-2023 OT/PT/Speech Visit Antwan Cope PT Work Phone: [facility] Comment on above: Rotator cuff disorde r, left Start: 11-25-2023 Chart abstracting Homer epps MD Work Phone: [facility] Comment on above: Ext / Labs, D/C repo rt & Op report Start: 11-24-2023 End: 11-24-2023 Admission to same day surgery center [facility] Start: 11-24-2023 End: 11-24-2023 ambulatory [facility] Work Phone: Start: 11-17-2023 ambulatory Homer helms MD Work Phone: [facility] Start: 11-16-2023 Telephone encounter Meagan mitchell PA-C Work Phone: [facility] Comment on above: Results Start: 11-15-2023 End: 11-15-2023 ambulatory [facility] Work Phone: Start: 11-15-2023 End: 11-15-2023 Patient encounter procedure [facility] [place] Work Phone: Start: 11-15-2023 Telephone encounter Rajani Granger MA [facility] Comment on above: Patient Update Start: 11-14-2023 End: 11-14-2023 Ophthalmic examination and evaluation Homer Bradford MD Work Phone: [facility] Start: 11-14-2023 End: 11-14-2023 Patient encounter procedure Homer Brafdord MD Work Phone: [facility] [place] Comment on above: Type 2 diabetes elroy itus with stage 3b chronic kidney disease, without long-term current use of insulin ([facility]) (Primary Dx); Diabetic eye exam ([facility]); Mixed hyperlipidemia; Hypotension, unspecified hypotension type; ASHD (arteriosclerotic heart disease); Paroxysmal atrial fibrillation ([facility]); Bilateral leg edema; Gastroesophageal reflux disease without esophagitis; History of CVA (cerebrovascular accident); Chronic obstructive pulmonary disease, unspecified COPD type ([facility]); Stage 3b chronic kidney disease ([facility]); Migraine without aura and without status migrainosus, not intractable; Bipolar affective disorder, remission status unspecified ([facility]); Major depressive disorder, recurrent episode, moderate ([facility]); Extrapyramidal reaction; Tardive dyskinesia; Chronic insomnia; Smoker; Low vitamin B12 level; Mixed incontinence urge and stress (male)(female); Diabetic foot ([facility]); Obesity, Class III, BMI >= 40; Encounter for screening mammogram for breast cancer Start: 11-11-2023 End: 11-11-2023 Patient encounter procedure Jarod Godwin DO Work Phone: [facility] [place] Comment on above: Rotator cuff disorde r, left (Primary Dx); Obesity, Class III, BMI >= 40 Start: 11-11-2023 End: 11-11-2023 Subsequent hospital visit by physician N[facility] Work Phone: Radiology Comment on above: Chronic pain of both shoulders [M25.511, G89.29, M25.512] Start: 09-30-2023 Telephone encounter Homer Bradford MD Work Phone: [facility] Comment on above: Patient Update Start: 09-28-2023 Telephone encounter Meagan mitchell PA-C Work Phone: [facility] Comment on above: Results Start: 09-27-2023 End: 09-27-2023 Patient encounter procedure Me[facility]usuf [facility]-C [facility] Comment on above: Chronic pain of both shoulders (Primary Dx); Type 2 diabetes mellitus without complication, without long-term current use of insulin (HCC); Major depressive disorder, recurrent episode, moderate (HCC); Gastroesophageal reflux disease without esophagitis; Mixed hyperlipidemia Start: 09-15-2023 Refill Homer helms MD Work Phone: [facility] Comment on above: Refill Request Start: 07-20-2023 ambulatory Homer helms MD Work Phone: [facility] [place] Start: 05-12-2023 Chart abstracting Homer epps MD Work Phone: [facility] Comment on above: Outside Imaging Start: 05-11-2023 End: 05-11-[address] Homer Bradford Work Phone: [facility] Work Phone: Start: 05-11-2023 End: 05-11-[address] Homer Bradford Work Phone: [facility] Work Phone: Start: 05-06-2023 Telephone encounter Homer Bradford MD Work Phone: [facility] Comment on above: Patient Question Start: 04-29-2023 Refill Homer helms MD Work Phone: [facility] Comment on above: Refill Request Start: 04-01-2023 Refill Homer helms MD Work Phone: [facility] Comment on above: Refill Request Start: 03-28-2023 Chart abstracting Homer epps MD Work Phone: [facility] Comment on above: ext document Start: 03-28-2023 End: 03-28-[address] Homer Bradford Work Phone: [facility]-Cat Scan, [facility] Work Phone: Start: 03-11-2023 End: 03-11-2023 Patient encounter procedure Caterina Dejesus PA-C Work Phone: General Surgery Comment on above: Screening for colon cancer Start: 03-04-2023 Telephone encounter Meagan mitchell PA-C Work Phone: [facility] Comment on above: Results Start: 03-04-2023 End: 03-04-[address] Homer Bradford Work Phone: [facility] Work Phone: Start: 03-04-2023 End: 03-04-[address] Homer Bradford Work Phone: [facility]-P[facility] Medicine [facility] Work Phone: Start: 02-28-2023 Telephone encounter Meagan mitchell PA-C Work Phone: [facility] Comment on above: Pulmonology CT Scan Start: 02-28-2023 End: 02-28-2023 Patient encounter procedure Meagan Yusuf PA-C Work Phone: [facility] Comment on above: Mixed hyperlipidemia (Primary Dx); Type 2 diabetes mellitus without complication, with long-term current use of insulin (HCC); Chronic obstructive pulmonary disease, unspecified COPD type (HCC); Morbid obesity due to excess calories (HCC); Stage 3b chronic kidney disease (HCC); Screening for colon cancer Start: 02-15-2023 Chart abstracting Homer epps MD Work Phone: [facility] Comment on above: Outside Imaging Start: 02-14-2023 End: 02-14-2023 ambulatory [facility] Work Phone: Start: 02-14-2023 End: 02-14-2023 Patient encounter procedure [facility], [facility] Work Phone: Start: 02-03-2023 Telephone encounter Dennys Knapp Work Phone: Podiatry Comment on above: Results Start: 02-01-2023 Refill Homer helms MD Work Phone: [facility] Comment on above: Refill Request [...] 12-01-2022 Emergency department patient visit [facility] Work Phone: Start: 11-18-2022 Refill Homer helms MD Work Phone: [facility] Comment on above: Refill Request Start: 10-22-2022 Telephone encounter Homer Bradford MD Work Phone: [facility] Comment on above: Results Start: 10-21-2022 End: 10-21-2022 Refill Homer Bradford MD Work Phone: [facility] Comment on above: Refill Request Leg cramps (Primary Dx) Start: 10-04-2022 End: 10-04-2022 Patient encounter procedure Azam Fam MD Work Phone: [facility] Comment on above: Rash (Primary Dx); Hives Start: 10-04-2022 ambulatory Homer helms MD Work Phone: [facility] Comment on above: Rash Start: 10-02-2022 Chart abstracting Homer epps MD Work Phone: [facility] Comment on above: Consult (Neurology / ) Start: 09-17-2022 Chart abstracting Homer epps MD Work Phone: [facility] Comment on above: ER F/U ([facility] ) Start: 09-16-2022 Telephone encounter Ladi barcenas LIBRARY DIRECTOR.RDA Work Phone: [facility] Comment on above: Orders Start: 09-12-2022 End: 09-12-2022 [facility] Start: 08-05-2022 End: 08-05-2022 Patient encounter procedure Dennys Pool Work Phone: Podiatry Comment on above: Other diabetic neuro logical complication associated with type 2 diabetes mellitus (HCC) (Primary Dx); Onychomycosis; Pain in toe of left foot; Pain in toe of right foot; Hyperkeratosis Start: 07-28-2022 ambulatory Homer helms MD Work Phone: [facility] [place] Start: 07-16-2022 Telephone encounter Homer Bradford MD Work Phone: [facility] Comment on above: Results Start: 07-15-2022 Telephone encounter Homer Bradford MD Work Phone: [facility] Comment on above: Fax for Incontinence Supplies Start: 07-15-2022 End: 07-20-2022 Patient encounter procedure Meagan Yusuf PA-C Work Phone: [facility] Comment on above: Leg cramps (Primary Dx) Start: 07-07-2022 Telephone encounter Zoila Almodovar Comment on above: Transportation Start: 06-14-2022 Telephone encounter Homer Bradford MD [facility] Comment on above: Medication Question Social Work Services Start: 06-09-2022 End: 06-09-2022 Ophthalmic examination and evaluation Homer Bradford MD Work Phone: [facility] [place] Start: 06-09-2022 End: 06-09-2022 Patient encounter procedure Homer Bradford MD Work Phone: [facility] Comment on above: Well adult exam (Lara radhika Dx); Type 2 diabetes mellitus without complication, with long-term current use of insulin (HCC); Diabetic eye exam ([facility]); Diabetic foot ([facility]); Mixed hyperlipidemia; Gastroesophageal reflux disease without esophagitis; Hypotension, unspecified hypotension type; Migraine without aura and without status migrainosus, not intractable; Tardive dyskinesia; Chronic insomnia; Chronic obstructive pulmonary disease, unspecified COPD type ([facility]); ASHD (arteriosclerotic heart disease); Paroxysmal atrial fibrillation ([facility]); Bilateral leg edema; Stage 3b chronic kidney disease ([facility]); History of CVA (cerebrovascular accident); Mixed incontinence urge and stress (male)(female); Incontinence of feces, unspecified fecal incontinence type; Smoker; Bipolar affective disorder, remission status unspecified ([facility]); Major depressive disorder, recurrent episode, moderate ([facility]); [place] or callus; Colon cancer screening; Medication management; Leg cramps Start: 06-09-2022 End: 06-09-2022 Patient encounter status Homer Bradford MD Work Phone: [facility] [place] Start: 05-05-2022 Refill Homer helms MD [facility] Comment on above: Refill Request Start: 04-16-2022 Telephone encounter Homer Bradford [facility] Comment on above: Orders Start: 02-25-2022 End: 02-25-[address] Homer Bradford [facility] Start: 02-24-2022 Non-patient / Non-visit Dr. Edison Bradford Work Phone: [facility] Start: 02-23-2022 End: 02-23-[address] Homer Bradford Work Phone: [facility]-Pulmonary Services/Neurology Start: 02-17-2022 Non-patient / Non-visit Dr. Edison Bradford Work Phone: [facility] Start: 02-17-2022 End: 02-17-[address] Homer Bradford Work Phone: [facility]/Neurology Start: 02-12-2022 End: 02-12-2022 Patient encounter procedure Dennys Pool Work Phone: Podiatry Comment on above: Onychomycosis (Prima ry Dx); Pain in toe of left foot; Pain in toe of right foot; Diminished pulses in lower extremity; Other diabetic neurological complication associated with type 2 diabetes mellitus (HCC) Refill Request Start: 02-11-2022 End: 02-11-[address] Homer Bradford Work Phone: [facility] Start: 02-05-2022 Telephone encounter Meagan mitchell PA-C Work Phone: [facility] [place] Comment on above: Results Start: 01-05-2022 End: 01-05-[address] Homer Bradford [facility] Start: 12-28-2021 Telephone encounter Meagan mitchell PA-C Work Phone: [facility] [place] Comment on above: Results Start: 12-21-2021 End: 12-21-2021 Emergency department patient visit ROMEO SIERRA MD [facility] Start: 12-21-2021 Telephone encounter Meagan mitchell PA-C Work Phone: [facility] Comment on above: repeat lab results Start: 12-16-2021 Telephone encounter Homer Bradford MD Work Phone: [facility] Comment on above: Results Start: 12-15-2021 Telephone encounter Homer Bradford MD Work Phone: [facility] Comment on above: Patient Update Start: 12-15-2021 End: 12-15-[address] Homer Bradford [facility] Start: 12-11-2021 Telephone encounter Homer Bradford MD Work Phone: [facility] Comment on above: Orders Question Start: 12-06-2021 Telephone encounter Homer Bradford MD Work Phone: [facility] Comment on above: Results Start: 11-27-2021 End: 11-27-2021 Ophthalmic examination and evaluation Homer Bradford MD Work Phone: [facility] Start: 11-27-2021 End: 11-27-2021 Patient encounter procedure Homer Bradford MD Work Phone: [facility] Comment on above: Type 2 diabetes elroy itus without complication, with long-term current use of insulin ([facility]) (Primary Dx); Diabetic eye exam ([facility]); Mixed hyperlipidemia; Gastroesophageal reflux disease without esophagitis; Stage 3b chronic kidney disease ([facility]); Bilateral leg edema; Bipolar affective disorder, remission status unspecified ([facility]); Major depressive disorder, recurrent episode, moderate ([facility]); Paroxysmal atrial fibrillation ([facility]); ASHD (arteriosclerotic heart disease); Chronic obstructive pulmonary disease, unspecified COPD type ([facility]); Migraine without aura and without status migrainosus, not intractable; Hypotension, unspecified hypotension type; History of CVA (cerebrovascular accident); Chronic insomnia; Tardive dyskinesia; Morbid obesity due to excess calories ([facility]); Smoker; Extrapyramidal reaction; Mixed incontinence urge and stress (male)(female) Start: 11-20-2021 Refill Homer helms MD Work Phone: [facility] Comment on above: Refill Request Start: 11-19-2021 Telephone encounter Homer Bradford MD Work Phone: [facility] Comment on above: Orders Start: 10-20-2021 Telephone encounter Homer Bradford MD Work Phone: [facility] Comment on above: Supplies Needed Start: 10-19-2021 Telephone encounter Homer Bradford MD Work Phone: [facility] [place] Comment on above: DME company and supp lies. Start: 10-15-2021 Refill Homer helms MD Work Phone: [facility] Comment on above: Refill Request Start: 10-14-2021 End: 10-14-2021 Patient encounter procedure Dick Dodd MD Work Phone: Internal [facility] Comment on above: History of recent pn eum[place] (Primary Dx); History of respiratory failure; Physical deconditioning; Muscle weakness (generalized); Dysphagia, unspecified type; Type 2 diabetes mellitus without complication, with long-term current use of insulin (HCC); Gastroesophageal reflux disease without esophagitis; Chronic obstructive pulmonary disease, unspecified COPD type ([facility]); Irritable bowel syndrome with both constipation and diarrhea Start: 09-28-2021 End: 09-28-[address] Homer Bradford [facility] Start: 09-07-2021 Non-patient / Non-visit Dr. Edison Bradford Work Phone: [facility] Start: 09-06-2021 Non-patient / Non-visit Dr. Edison Bradford Work Phone: [facility] Start: 09-06-2021 Non-patient / Non-visit Dr. Edison Bradford Work Phone: [facility] Start: 09-05-2021 Non-patient / Non-visit Dr. Edison Bradford Work Phone: [facility] Start: 09-05-2021 Non-patient / [facility] Start: 09-04-2021 Non-patient / Non-visit Dr. Edison Bradford Work Phone: [facility] Start: 09-04-2021 Non-patient / Non-[facility]. [facility] Start: 09-03-2021 Non-patient / Non-visit Dr. Edison Bradford Work Phone: [facility] Start: 09-03-2021 Non-patient / Non-visit Dr. Edison Bradford Work Phone: [facility] Start: 09-02-2021 Non-patient / Non-visit Dr. Edison Bradford Work Phone: [facility] Start: 09-01-2021 Non-patient / Non-visit Dr. Edison Bradford Work Phone: [facility] Start: 08-31-2021 Non-patient / Non-visit Dr. Edison Bradford Work Phone: [facility] Start: 08-31-2021 Non-patient / Non-[facility]. [facility] Start: 08-30-2021 Non-patient / Non-visit Dr. Edison Bradford Work Phone: [facility] Start: 08-29-2021 Non-patient / Non-visit Dr. Edison Bradford Work Phone: [facility] Start: 08-28-2021 Non-patient / Non-visit Dr. Edison Bradford Work Phone: [facility] Start: 08-27-2021 Non-patient / Non-visit Dr. Edison Bradford Work Phone: [facility] Start: 08-27-2021 Non-patient / Non-visit Dr. Edison Bradford Work Phone: [facility] Start: 08-27-2021 Non-patient / Non-visit Dr. Edison Bradford Work Phone: [facility] Start: 08-26-2021 Non-patient / Non-visit Dr. Edison Bradford Work Phone: [facility] Start: 08-26-2021 Non-patient / Non-visit Dr. Edison Bradford Work Phone: [facility] Start: 08-25-2021 Non-patient / Non-visit Dr. Edison Bradford Work Phone: [facility] Start: 08-25-2021 End: 09-07-2021 Evaluation and management of inpatient Dr. Homer Bradford Work Phone: [facility] Start: 11-20-2020 End: 11-20-2020 Subsequent hospital visit by physician [facility] Work Phone: Radiology Comment on above: Left hip pain [M25.5 52] Start: 03-12-2019 Ophthalmic examinati on and evaluation HOMER BRADFORD [facility] Work Phone: Start: 11-16-2018 Patient encounter status Concetta Dodd MD Work Phone: [facility] Work Phone: Start: 01-07-2012 Evaluation and management of inpatient Dr. Homer Bradford Work Phone: [facility]- Start: 01-07-2012 Broderick hawkins Work Phone: [...] mc rscp w/mnl difrntl wbc count Broderick Mionr Work Phone: Start: 01-09-2025 Nucleated red blood cell count procedure Broderick Minor Work Phone: Start: 01-08-2025 Assay of lactate Toño arthur Mily Work Phone: Start: 01-08-2025 Plain chest X-ray [...] Phone: Start: 01-08-2025 Methadone measurement, urine Broderick Mnior Work Phone: Start: 01-08-2025 Nucleated red blood [...] Phone: Start: 09-12-2024 Plain chest X-ray Maritza Minor Work Phone: Start: 11-24-2023 Implantation of sacr al nerve stimulator Start: 11-11-2023 Arthrocentesis aspir &/inj major jt/bursa w/o us Jarod Tato NOVAK Work Phone: Start: 05-11-2023 CT of chest without contrast Dr. Homer Bradford Work Phone: Start: 03-28-2023 Plain chest X-ray Dr. Pepe Bradford Work Phone: Start: 03-28-2023 Plain chest X-ray Dr. Pepe Bradford Work Phone: Start: 03-28-2023 Biopsy/Inj or Needle Placement Dr. Homer Bradford Work Phone: Start: 02-14-2023 CT of chest Start: 02-11-[address] Art Bradford Work Phone: Start: 12-15-2021 Videoswallouise Davies Work Phone: Start: 09-07-2021 SARS-CoV-2 Antigen (Rapid) [...] Minor Work Phone: History of tonsillectomy Chauncey Minor Work Phone: Plan of Treatment Date Care Activity Detail Author Start: 03-25-2026 End: 03-25-2026 Patient encounter procedure 03/25/2026 1:00 PM EDT Office Visit [facility] Op[facility]mology [address] [place], [place] [id number] Alize Wilcox, OD [address] [place] [address] Diagnostics, [facility] [place] [phone] (Work) 1 YR F/U for diabetic eye exam. Ophthalmology Comment on above: 1 YR F/U for diabetic eye exam. Start: 03-21-2026 Glaucoma screening Dilated Retinal Exam [facility] Start: 02-21-2026 Annual PCP Team Chronic Disease Visit Annual PCP Team Chronic Disease Visit [facility] Start: 01-25-2026 Annual PCP Team Chronic Disease Visit Annual PCP Team Chronic Disease Visit [facility] Start: 01-17-2026 Annual PCP Team Chronic Disease Visit Annual PCP Team Chronic Disease Visit [facility] Start: 01-17-2026 Complete blood count Hemoglobin/Hematocrit [facility] Start: 01-17-2026 Creatinine measurement Serum Creatinine [facility] Start: 12-18-2025 Annual PCP Team Chronic Disease Visit Annual PCP Team Chronic Disease Visit [facility] Start: 12-18-2025 Complete blood count Hemoglobin/Hematocrit [facility] Start: 12-18-2025 Creatinine measurement Serum Creatinine [facility] Start: 12-18-2025 Hepatitis B surface antibody level LDL Cholesterol [facility] Start: 06-19-2025 Hemoglobin A1c measurement HbA1C [facility] Start: 05-24-2025 End: 05-24-2025 Patient encounter procedure 05/24/2025 12:20 PM EST Office Visit [facility] [address] [place] [address] Meagan Yusuf PA-C [address] [place] [address] 3 month follow up [facility] [place] Comment on above: 3 month follow up Start: 04-30-2025 [facility] Start: 04-30-2025 [facility] Start: 04-04-2025 End: 04-04-2025 Patient encounter procedure 04/04/2025 11:20 AM EDT Office Visit Orthopaedics [address] [place] [address] Ortiz Massey MD [address] [place] [address] Rotator cuff disorder, left [M67.912] Orthopaedics Comment on above: Rotator cuff disorder, left [M67.912] Start: 04-03-2025 End: 04-03-2025 Patient encounter procedure 04/03/2025 3:00 PM EDT Appointment Mammogram [address] [place] [address] Dx: Encounter for screening mammogram for breast cancer [Z12.31] Mammogram Comment on above: Dx: Encounter for screening mammogram fo r breast cancer [Z12.31] Start: 03-22-2025 Annual PCP Team Chronic Disease Visit Annual PCP Team Chronic Disease Visit [facility] Start: 03-22-2025 Creatinine measurement Serum Creatinine [facility] Start: 03-22-2025 Diabetic foot examination Diabetic Foot Exam [facility] Start: 03-22-2025 Hepatitis B surface antibody level LDL Cholesterol [facility] Start: 03-21-2025 End: 03-21-2025 Patient encounter procedure 03/21/2025 1:30 PM EDT Office Visit [facility]mology [address] [address] Alize Wilcox, OD [address] [place] [address] Diagnostics, Eye Tech And [address] [place] [address] Dx: Diabetic eye exam (HCC) [Z01.00, E11.9] Ophthalmology Comment on above: Dx: Diabetic eye exam (HCC) [Z01.00, E11 .9] Start: 03-18-2025 Screening for malignant neoplasm of colon Colorectal Cancer Screening [facility] Comment on above: Postponed from 2007 (Declined at t his time) Start: 03-11-2025 US scan of bladder [facility] Start: 03-04-2025 End: 03-04-2025 Patient encounter procedure 03/04/2025 1:15 PM EDT Office Visit [facility] [address] [place] [address] Alize Wilcox, OD [address] [place] [address] Diagnostics, [facility] Tech [facility] [address] [place] [id number] Dx: Diabetic eye exam (HCC) [Z01.00, E11.9] Ophthalmology Comment on above: Dx: Diabetic eye exam (HCC) [Z01.00, E11 .9] Start: 02-21-2025 End: 02-21-2025 Patient encounter procedure 02/21/2025 1:00 PM EDT Office Visit [facility] [address] [place] [address] Homer Bradford MD [address] [place] [address] 2 month follow up 4 complexity [facility] Comment on above: 2 month follow up 4 complexity Start: 01-31-2025 [facility] Start: 01-25-2025 End: 04-26-2025 Bacteria identified in Urine by Culture [facility] Work Phone: Comment on above: Expected: 01/25/2025, Expires: Start: 01-25-2025 End: 01-25-2025 Patient encounter procedure 01/25/2025 11:40 AM EDT Office Visit [facility] [address] [place], [place] [address] Meagan Yusuf PA-C [address] [place] [address] rescheduled from 01/22 [facility] Comment on above: rescheduled from 01/22 Start: 01-17-2025 End: 04-18-2025 Basic metabolic 2000 panel - Serum or Plasma [facility] Work Phone: Comment on above: Expected: 01/17/2025, Expires: Start: 01-17-2025 End: 01-17-2025 Patient encounter procedure 01/17/2025 11:40 AM EDT Office Visit [facility] [address] [place], [place] [id number] Meagan Yusuf PA-C [address] [place] [address] [facility] Medsurg for Sepsis and UTI [facility] [place] Comment on above: [facility] Medsurg for Sepsis and UTI Start: 01-11-2025 Patient discharge [facility] Start: 01-10-2025 Consultation for treatment [facility] Start: 01-10-2025 Physiotherapy of chest [facility] Start: 01-09-2025 [facility] Start: 01-08-2025 Care regimes management [facility] Start: 01-08-2025 Notification of physician [facility] Start: 01-08-2025 Following clinical pathway protocol [facility] Start: 01-08-2025 Aspiration precautions [facility] Start: 01-08-2025 Assessment of risk of venous thromboembolism [facility] Start: 01-08-2025 Fall prevention [facility] Start: 01-08-2025 Insertion of catheter into peripheral vein [facility] Start: 01-08-2025 Introduction of urinary catheter [facility] Start: 01-08-2025 Measuring intake and output [facility] Start: 01-08-2025 Oxygen therapy [facility] Start: 01-08-2025 Providing care according to standard [facility] Start: 01-08-2025 Provision of activity privileges [facility] Start: 01-08-2025 Referral for physical therapy [facility] Start: 01-08-2025 Referral to occupational therapist [facility] Start: 01-08-2025 Referral to service [facility] Start: 01-08-2025 Tobacco use cessation education [facility] Start: 01-08-2025 Vital signs measurements [facility] Start: 01-08-2025 Admission procedure [facility] Start: 01-08-2025 Hospital admission, emergency, from emergency room, medical nature [facility] Start: 01-08-2025 End: 01-08-2025 [facility] Start: 01-08-2025 Blood culture [facility] Start: 01-08-2025 Consultation [facility] Start: 01-08-2025 Inhalation therapy procedure [facility] Start: 01-08-2025 Patient referral to dietitian [facility] Start: 12-21-2024 Screening for malignant neoplasm of breast Mammogram Screening [facility] Start: 12-18-2024 End: 03-19-2025 Cobalamin (Vitamin B12) [Mass/volume] in Serum or Plasma [facility] Work Phone: Comment on above: Expected: 12/18/2024, Expires: Start: 12-18-2024 End: 03-19-2025 Comprehensive metabolic 2000 panel - Serum or Plasma [facility] Comment on above: Expected: 12/18/2024, Expires: Start: 12-18-2024 End: 03-19-2025 LIPID PANEL, NONFASTING [facility] Comment on above: Expected: 12/18/2024, Expires: Start: 12-18-2024 End: 03-19-2025 Magnesium [Mass/volume] in Serum or Plasma [facility] Comment on above: Expected: 12/18/2024, Expires: Start: 12-18-2024 End: 03-19-2025 Microalbumin/Creatinine [Mass Ratio] in Urine ALBUMIN/CREATININE RATIO, URINE Lab Routine Type 2 diabetes mellitus with stage 3b chronic kidney disease, without long-term current use of insulin (HCC) Expected: 12/18/2024, Expires: 03/19/2025 [facility] Comment on above: Expected: 12/18/2024, Expires: Start: 12-18-2024 End: 03-19-2025 Urinalysis complete panel - Urine URINALYSIS, WITH MICROSCOPIC Lab Routine Type 2 diabetes mellitus with stage 3b chronic kidney disease, without long-term current use of insulin (HCC) Mixed hyperlipidemia Stage 3b chronic kidney disease (HCC) Expected: 12/18/2024, Expires: 03/19/2025 [facility] Comment on above: Expected: 12/18/2024, Expires: Start: 12-18-2024 End: 12-18-2024 Patient encounter procedure 12/18/2024 11:20 AM EDT Office Visit [facility] [place] [address] [place] [address] Homer Bradford MD [address] [place] [address] hospital follow up [facility] Comment on above: hospital follow up Start: 11-14-2024 End: 11-14-2024 [facility] Start: 11-14-2024 Consultation [facility] Start: 11-13-2024 Annual PCP Team Chronic Disease Visit Annual PCP Team Chronic Disease Visit [facility] Start: 11-12-2024 Insj non-ndwellg bladder catheter [facility] Start: 11-12-2024 [facility] Start: 11-12-2024 Consultation [facility] Start: 11-07-2024 End: 11-07-2024 Patient encounter procedure 11/07/2024 7:00 PM EDT Office Visit [facility] [address] [place] [address] Homer Bradford MD [address] [place] [address] [facility] follow up PE? had COVID [facility] Comment on above: [facility] follow up PE? had COVID Start: 11-07-2024 Patient discharge [facility] Start: 11-07-2024 [facility] Start: 11-05-2024 [facility] Start: 11-04-2024 End: 11-04-2024 Following clinical pathway protocol [facility] Start: 11-04-2024 Assessment of risk of venous thromboembolism [facility] Start: 11-04-2024 Care regimes management [facility] Start: 11-04-2024 Fall prevention [facility] Start: 11-04-2024 Inhalation therapy procedure [facility] Start: 11-04-2024 Insertion of catheter into peripheral vein [facility] Start: 11-04-2024 Introduction of urinary catheter [facility] Start: 11-04-2024 Measuring intake and output [facility] Start: 11-04-2024 Notification of physician [facility] Start: 11-04-2024 Providing care according to standard [facility] Start: 11-04-2024 Provision of activity privileges [facility] Start: 11-04-2024 Referral to occupational therapist [facility] Start: 11-04-2024 Referral to service [facility] Start: 11-04-2024 Tobacco use cessation education [facility] Start: 11-04-2024 End: 11-04-2024 [facility] Start: 11-04-2024 Verification routine [facility] Start: 11-04-2024 End: 11-04-2024 [facility] Start: 11-04-2024 Admission procedure [facility] Start: 11-04-2024 Hospital admission, emergency, from emergency room, medical nature [facility] Start: 11-04-2024 Bacteria identified in Blood by Culture Blood Culture [facility] Start: 11-04-2024 Bacteria identified in Urine by Culture Urine Culture [facility] Start: 11-04-2024 Consultation [facility] Start: 09-26-2024 Annual PCP Team Chronic Disease Visit Annual PCP Team Chronic Disease Visit [facility] Start: 09-26-2024 Complete blood count Hemoglobin/Hematocrit [facility] Start: 09-26-2024 Creatinine measurement Serum Creatinine [facility] Start: 09-26-2024 Hepatitis B screening Urine Albumin:Creatinine Ratio [facility] Start: 09-26-2024 Hepatitis B surface antibody level LDL Cholesterol [facility] Start: 09-21-2024 Patient discharge [facility] Start: 09-20-2024 Care planning and problem solving actions [facility] Start: 09-20-2024 End: 09-20-2024 Patient encounter procedure 09/20/2024 10:20 AM EST Office Visit Family [facility] [place] [address] [place] [address] Homer Bradford MD [address] [place] [address] 6 month f/u [facility] Comment on above: 6 month f/u Start: 09-19-2024 Hemoglobin A1c measurement HbA1C [facility] Start: 09-16-2024 [facility] Start: 09-13-2024 [facility] Start: 09-13-2024 Inhalation therapy procedure [facility] Start: 09-12-2024 Following clinical pathway protocol [facility] Start: 09-12-2024 Transfusion of blood product [facility] Start: 09-12-2024 Aspiration precautions [facility] Start: 09-12-2024 Assessment of risk of venous thromboembolism [facility] Start: 09-12-2024 Cardiac monitoring [facility] Start: 09-12-2024 Care regimes management [facility] Start: 09-12-2024 Catheterization of vein [facility] Start: 09-12-2024 Consultation [facility] Start: 09-12-2024 Elevation of head of bed [facility] Start: 09-12-2024 Exercises [facility] Start: 09-12-2024 Insertion of catheter into peripheral vein [facility] Start: 09-12-2024 Measuring intake and output [facility] Start: 09-12-2024 Notification of physician [facility] Start: 09-12-2024 Oxygen therapy [facility] Start: 09-12-2024 Patient referral to dietitian [facility] Start: 09-12-2024 Providing care according to standard [facility] Start: 09-12-2024 Provision of activity privileges [facility] Start: 09-12-2024 Referral to occupational therapist [facility] Start: 09-12-2024 Referral to service [facility] Start: 09-12-2024 Speech therapy assessment [facility] Start: 09-12-2024 Telemedicine consultation with patient [facility] Start: 09-12-2024 Tobacco use cessation education [facility] Start: 09-12-2024 End: 09-12-2024 [facility] Start: 09-12-2024 Vital signs measurements [facility] Start: 09-12-2024 Verification routine [facility] Start: 09-12-2024 Admission procedure [facility] Start: 09-12-2024 [facility] Start: 09-12-2024 [facility] Start: 09-12-2024 Consultation [facility] Start: 07-05-2024 End: 07-05-2024 Patient encounter procedure 07/05/2024 1:00 PM EST Office Visit [facility] [address] [place] [address] Alize Wilcox, OD [address] [place] [address] Type 2 diabetes mellitus with stage 3b chronic kidney disease, without long-term... Ophthalmology Comment on above: Type 2 diabetes mellitus with stage 3b c hronic kidney disease, without long-term... Start: 06-05-2024 End: 06-05-2024 Patient encounter procedure 06/05/2024 2:30 PM EST Office Visit [facility] [address] [place] [address] Alize Wilcox, OD [address] [place] [address] Type 2 diabetes mellitus with stage 3b chronic kidney disease, without long-term... Ophthalmology Comment on above: Type 2 diabetes mellitus with stage 3b c hronic kidney disease, without long-term... Start: 05-16-2024 Creatinine measurement Serum Creatinine [facility] Start: 04-06-2024 End: 04-06-2024 ambulatory 04/06/2024 1:30 PM EDT OT/PT/Speech Visit [facility] [address] [place] [address] Antwan Cope, PT [address] [id number] rt shoulder [facility] Comment on above: rt shoulder Start: 03-30-2024 End: 03-30-2024 Patient encounter procedure 03/30/2024 1:00 PM EDT Office Visit Podiatry [address] [place] [address] Dennys Pool [address] [place] [address] Diab Foor F/u Podiatry Comment on above: Diab Foor F/u Start: 03-29-2024 Hemoglobin A1c measurement HbA1C [facility] Start: 03-22-2024 End: 06-21-2024 Comprehensive metabolic 2000 panel - Serum or Plasma [facility] Comment on above: Expected: 03/22/2024, Expires: Start: 03-22-2024 End: 06-21-2024 Hemoglobin A1c in Blood [facility] Work Phone: Comment on above: Expected: 03/22/2024, Expires: Start: 03-22-2024 End: 06-21-2024 LIPID PANEL, NONFASTING [facility] Comment on above: Expected: 03/22/2024, Expires: Start: 03-22-2024 End: 03-22-2024 Patient encounter procedure 03/22/2024 12:40 PM EDT Office Visit [facility] [address] [facility] [place] [id number] Meagan Yusuf PA-C [address] [facility] [place] [id number] medicare wellness [facility] Comment on above: medicare wellness Start: 03-18-2024 Covid-19 Vaccine ( season) Covid-19 Vaccine ( season) [facility] Start: 03-18-2024 Covid-19 Vaccine ( season) Covid-19 Vaccine ( season) [facility] Start: 03-16-2024 End: 03-16-2024 Patient encounter procedure 03/16/2024 1:40 PM EDT Office Visit Family [facility] [address] [facility] [place] [address] Homer Bradford MD [address] [facility] [place], [place] [id number] medicare wellness [facility] Comment on above: medicare wellness Start: 03-15-2024 End: 03-15-2024 ambulatory 03/15/2024 2:00 PM EDT OT/PT/Speech Visit [facility] [address] [place] [phone] Antwan Cope, PT [address] [facility] [place] [address] rt shoulder [facility] Comment on above: rt shoulder Start: 02-29-2024 ANNUAL PCP TEAM CHRONIC DISEASE VISIT ANNUAL PCP TEAM CHRONIC DISEASE VISIT [facility] Start: 02-29-2024 Hepatitis B surface antibody level LDL CHOLESTEROL [facility] Start: 02-29-2024 SERUM CREATININE SERUM CREATININE [facility] Start: 01-09-2024 End: 01-09-2024 OT/PT/Speech Visit 01/09/2024 2:00 PM EDT OT/PT/Speech Visit [facility] [address] [place] [address] Antwan Cope, PT [address] [place] [address] Rotator cuff disorder, left [M67.912] [facility] Comment on above: Rotator cuff disorder, left [M67.912] Start: 01-05-2024 Glaucoma screening Dilated Retinal Exam [facility] Start: 01-05-2024 Hepatitis C antibody, confirmatory test DILATED RETINAL EXAM [facility] Start: 12-16-2023 End: 12-16-2023 Patient encounter procedure Podiatry Comment on above: Chronic pain of both shoulders [M25.511, G89.29, M25.512] Nail care Start: 11-29-2023 End: 11-29-2023 OT/PT/Speech Visit 11/29/2023 4:30 PM EDT OT/PT/Speech Visit [facility] [address] [place] [address] Antwan Cope, PT [address] [facility] [place] [address] Rotator cuff disorder, left [M67.912] [facility] Comment on above: Rotator cuff disorder, left [M67.912] Start: 11-24-2023 Patient discharge [facility] Start: 11-16-2023 End: 11-16-2023 Patient encounter procedure 11/16/2023 1:50 PM EDT Appointment Mammogram [address] [place] [address] Encounter for screening mammogram for breast cancer [Z12.31 Mammogram Comment on above: Encounter for screening mammogram for br east cancer [Z12.31 Start: 11-14-2023 End: 11-14-2023 Patient encounter procedure 11/14/2023 2:00 PM EDT Office Visit [facility] [address] [place], [place] [id number] Homer Bradford MD [address] [place], [place] [phone] Lab results [facility] Comment on above: Lab results Start: 11-03-2023 Complete blood count Hemoglobin/Hematocrit [facility] Start: 11-03-2023 HEMOGLOBIN/HEMATOCRIT HEMOGLOBIN/HEMATOCRIT [facility] Start: 11-03-2023 SERUM CREATININE SERUM CREATININE [facility] Start: 10-22-2023 ANNUAL PCP TEAM CHRONIC DISEASE VISIT ANNUAL PCP TEAM CHRONIC DISEASE VISIT [facility] Start: 10-22-2023 COVID-19 VACCINE (#1) COVID-19 VACCINE (#1) [facility] Comment on above: Postponed from 1962 (Declined at t his time) Start: 10-05-2023 ANNUAL PCP TEAM CHRONIC DISEASE VISIT ANNUAL PCP TEAM CHRONIC DISEASE VISIT [facility] Start: 09-27-2023 End: 12-27-2023 Hemoglobin A1c in Blood [facility] Work Phone: Comment on above: Expected: 09/27/2023, Expires: Start: 09-16-2023 ANNUAL PCP TEAM CHRONIC DISEASE VISIT ANNUAL PCP TEAM CHRONIC DISEASE VISIT [facility] Start: 09-16-2023 SERUM CREATININE SERUM CREATININE [facility] Start: 08-31-2023 Hemoglobin A1c measurement HbA1C [facility] Start: 08-31-2023 Hemoglobin A1c/Hemoglobin.total in Blood HBA1C [facility] Start: 07-15-2023 ANNUAL PCP TEAM CHRONIC DISEASE VISIT ANNUAL PCP TEAM CHRONIC DISEASE VISIT [facility] Start: 07-15-2023 HEMOGLOBIN/HEMATOCRIT HEMOGLOBIN/HEMATOCRIT [facility] Start: 07-15-2023 Hepatitis B surface antibody level LDL CHOLESTEROL [facility] Start: 07-15-2023 SERUM CREATININE SERUM CREATININE [facility] Start: 06-09-2023 3 comp foot exam completed DIABETIC FOOT EXAM [facility] Start: 06-09-2023 ANNUAL PCP TEAM CHRONIC DISEASE VISIT ANNUAL PCP TEAM CHRONIC DISEASE VISIT [facility] Start: 06-09-2023 Diabetic foot examination Diabetic Foot Exam [facility] Start: 06-09-2023 SHINGRIX VACCINE (1 of 2) SHINGRIX VACCINE (1 of 2) [facility] Comment on above: Postponed from 01/30/2012 (Insurance Cov erage) Start: 05-22-2023 HPV TESTING HPV TESTING [facility] Start: 05-22-2023 PAP TESTING PAP TESTING [facility] Start: 05-22-2023 Screening for malignant neoplasm of cervix [facility] Start: 05-11-2023 CORE NDL BX LNG/MED PERQ CORE NDL BX LNG/MED PERQ [facility] Start: 03-28-2023 Following clinical pathway protocol [facility] Start: 03-28-2023 Catheterization of vein [facility] Start: 03-28-2023 Oxygen therapy [facility] Start: 03-28-2023 Patient discharge [facility] Start: 03-28-2023 Vital signs measurements [facility] Start: 03-18-2023 Covid-19 Vaccine ( season) Covid-19 Vaccine () [facility] Start: 02-28-2023 End: 04-30-2023 Comprehensive metabolic 2000 panel - Serum or Plasma [facility] Work Phone: Comment on above: Expected: 02/28/2023, Expires: 3 Start: 02-28-2023 End: 04-30-2023 LIPID PANEL, NONFASTING [facility] Work Phone: Comment on above: Expected: 02/28/2023, Expires: 3 Start: 02-28-2023 End: 04-30-2023 Thyrotropin [Units/volume] in Serum or Plasma [facility] Work Phone: Comment on above: Expected: 02/28/2023, Expires: 3 Start: 01-13-2023 Hemoglobin A1c/Hemoglobin.total in Blood HBA1C [facility] Start: 12-15-2022 SERUM CREATININE SERUM CREATININE [facility] Start: 12-05-2022 Hepatitis B screening URINE ALBUMIN:CREATININE RATIO [facility] Start: 12-04-2022 Hepatitis B surface antibody level LDL CHOLESTEROL [facility] Start: 12-04-2022 SERUM CREATININE SERUM CREATININE [facility] Start: 11-27-2022 ANNUAL PCP TEAM CHRONIC DISEASE VISIT ANNUAL PCP TEAM CHRONIC DISEASE VISIT [facility] Start: 10-14-2022 ANNUAL PCP TEAM CHRONIC DISEASE VISIT ANNUAL PCP TEAM CHRONIC DISEASE VISIT [facility] Start: 09-16-2022 End: 11-16-2022 Erythrocyte sedimentation rate SED RATE WESTERGREN Lab Routine Rash Expected: 09/16/2022, Expires: 11/16/2022 [facility] Work Phone: Comment on above: Expected: 09/16/2022, Expires: Start: 06-24-2022 Mammography [facility] Start: 06-24-2022 Screening for malignant neoplasm of breast Mammogram Screening [facility] Start: 06-09-2022 End: 08-09-2022 CBC W Auto Differential panel - Blood CBC + DIFF Lab Routine Stage 3b chronic kidney disease (HCC) Type 2 diabetes mellitus without complication, with long-term current use of insulin (HCC) Medication management Expected: 06/09/2022, Expires: 08/09/2022 [facility] Work Phone: Comment on above: Expected: 06/09/2022, Expires: 3 Start: 06-09-2022 End: 08-09-2022 Cobalamin (Vitamin B12) [Mass/volume] in Serum or Plasma VITAMIN B12 BLOOD Lab Routine Gastroesophageal reflux disease without esophagitis Medication management Expected: 06/09/2022, Expires: 08/09/2022 [facility] Work Phone: Comment on above: Expected: 06/09/2022, Expires: 3 Start: 06-09-2022 End: 08-09-2022 Comprehensive metabolic 2000 panel - Serum or Plasma COMP METABOLIC PANEL Lab Routine Type 2 diabetes mellitus without complication, with long-term current use of insulin (HCC) Mixed hyperlipidemia Expected: 06/09/2022, Expires: 08/09/2022 [facility] Work Phone: Comment on above: Expected: 06/09/2022, Expires: 3 Start: 06-09-2022 End: 08-09-2022 Hemoglobin A1c in Blood HGB A1C Lab Routine Type 2 diabetes mellitus without complication, with long-term current use of insulin (HCC) Expected: 06/09/2022, Expires: 08/09/2022 [facility] Work Phone: Comment on above: Expected: 06/09/2022, Expires: 3 Start: 06-09-2022 End: 08-09-2022 LIPID PANEL, NONFASTING LIPID PANEL, NONFASTING Lab Routine Type 2 diabetes mellitus without complication, with long-term current use of insulin (HCC) Mixed hyperlipidemia ASHD (arteriosclerotic heart disease) Expected: 06/09/2022, Expires: 08/09/2022 [facility] Work Phone: Comment on above: Expected: 06/09/2022, Expires: 3 Start: 06-09-2022 End: 08-09-2022 Magnesium [Mass/volume] in Serum or Plasma MAGNESIUM BLD Lab Routine Gastroesophageal reflux disease without esophagitis Medication management Leg cramps Expected: 06/09/2022, Expires: 08/09/2022 [facility] Work Phone: Comment on above: Expected: 06/09/2022, Expires: 3 Start: 06-06-2022 Hemoglobin A1c/Hemoglobin.total in Blood HBA1C [facility] Start: 05-29-2022 3 comp foot exam completed DIABETIC FOOT EXAM [facility] Start: 05-29-2022 COVID-19 VACCINE (#1) COVID-19 VACCINE (#1) [facility] Comment on above: Postponed from 1967 (Declined at t his time) Postponed from 08/01 (Declined at this time) Start: 05-29-2022 COVID-19 VACCINE (1) COVID-19 VACCINE (1) [facility] Comment on above: Postponed from 1967 (Declined at t his time) Start: 05-29-2022 Hepatitis B surface antibody level LDL CHOLESTEROL [facility] Start: 05-29-2022 SERUM CREATININE SERUM CREATININE [facility] Start: 2022 Hepatitis B Vaccine (1 of 3 - Risk 3-dose series) Hepatitis B Vaccine (1 of 3 - Risk 3-dose series) [facility] Start: 2022 RSV Vaccine (1 - 1-dose 60+ series) RSV Vaccine (1 - 1-dose 60+ series) [facility] Start: 2022 RSV Vaccine (1 - Risk 60-74 years 1-dose series) RSV Vaccine (1 - Risk 60-74 years 1-dose series) [facility] Start: 01-07-2022 End: 03-09-2022 POTASSIUM BLD POTASSIUM BLD Lab Routine Hypokalemia Expected: 01/07/2022, Expires: 03/09/2022 [facility] Work Phone: Comment on above: Expected: 01/07/2022, Expires: 2 Start: 12-21-2021 End: 02-20-2022 POTASSIUM BLD POTASSIUM BLD Lab Routine Hypokalemia Expected: 12/21/2021, Expires: 02/20/2022 [facility] Work Phone: Comment on above: Expected: 12/21/2021, Expires: 2 Start: 12-16-2021 End: 02-15-2022 POTASSIUM BLD POTASSIUM BLD Lab Routine Hypokalemia Expected: 12/16/2021, Expires: 02/15/2022 [facility] Work Phone: Comment on above: Expected: 12/16/2021, Expires: 2 Start: 12-08-2021 HEMOGLOBIN/HEMATOCRIT HEMOGLOBIN/HEMATOCRIT [facility] Start: 12-06-2021 End: 02-05-2022 Basic metabolic 2000 panel - Serum or Plasma BASIC METABOLIC PNL Lab Routine Stage 3b chronic kidney disease (HCC) Expected: 12/06/2021, Expires: 02/05/2022 [facility] Work Phone: Comment on above: Expected: 12/06/2021, Expires: 2 Start: 11-27-2021 End: 01-27-2022 ALBUMIN/CREAT RATIO RND UR ALBUMIN/CREAT RATIO RND UR Lab Routine Type 2 diabetes mellitus without complication, with long-term current use of insulin (HCC) Expected: 11/27/2021, Expires: 01/27/2022 [facility] Work Phone: Comment on above: Expected: 11/27/2021, Expires: 2 Start: 11-27-2021 End: 01-27-2022 Comprehensive metabolic 2000 panel - Serum or Plasma COMP METABOLIC PANEL Lab Routine Type 2 diabetes mellitus without complication, with long-term current use of insulin (HCC) Mixed hyperlipidemia Stage 3b chronic kidney disease (HCC) Expected: 11/27/2021, Expires: 01/27/2022 [facility] Work Phone: Comment on above: Expected: 11/27/2021, Expires: 2 Start: 11-27-2021 End: 01-27-2022 Hemoglobin A1c/Hemoglobin.total in Blood HGB A1C Lab Routine Type 2 diabetes mellitus without complication, with long-term current use of insulin (HCC) Expected: 11/27/2021, Expires: 01/27/2022 [facility] Work Phone: Comment on above: Expected: 11/27/2021, Expires: 2 Start: 11-27-2021 End: 01-27-2022 LIPID PANEL, NONFASTING LIPID PANEL, NONFASTING Lab Routine Type 2 diabetes mellitus without complication, with long-term current use of insulin (HCC) Mixed hyperlipidemia Expected: 11/27/2021, Expires: 01/27/2022 [facility] Work Phone: Comment on above: Expected: 11/27/2021, Expires: 2 Start: 11-26-2021 Hemoglobin A1c/Hemoglobin.total in Blood HBA1C [facility] Start: 11-25-2021 Hepatitis B screening URINE ALBUMIN:CREATININE RATIO [facility] Start: 11-25-2021 Hepatitis C antibody, confirmatory test DILATED RETINAL EXAM [facility] Start: 11-20-2021 SHINGRIX VACCINE (1 of 2) SHINGRIX VACCINE (1 of 2) [facility] Comment on above: Postponed from 01/30/2012 (Insurance Cov erage) Start: 09-27-2021 Colonoscopy COLONOSCOPY [facility] Start: 09-27-2021 COLORECTAL CANCER SCREENING COLORECTAL CANCER SCREENING [facility] Start: 09-27-2021 Screening for malignant neoplasm of colon [facility] Start: 09-30-2019 Influenza vaccination LUNG CANCER SCREENING [facility] Start: 05-05-2017 End: 05-05-2017 Mammogram, screening Mammogram, Screening, both breasts [facility] Start: 04-26-2017 End: 04-26-2017 Endometrial bx w/wo endocervix bx w/o dilat spx Endometrial Biopsy [facility] Start: 04-26-2017 End: 04-26-2017 Pathology Pathology [facility] Start: 04-26-2017 End: 04-26-2017 Us pelvic nonobstetric real-time image complete US Pelvis [facility] Start: 04-26-2017 End: 04-26-2017 Us transvaginal US Transvaginal [facility] Start: 07-18-2012 Pneumococcal Vaccine: 50+ (2 of 2 - PCV) Pneumococcal Vaccine: 50+ (2 of 2 - PCV) [facility] Start: 01-30-2012 SHINGRIX VACCINE (1 of 2) SHINGRIX VACCINE (1 of 2) [facility] Start: 2007 COLOGUARD (FIT-DNA) COLOGUARD (FIT-DNA) [facility] Start: [address] COLONOGRAPHY [facility] Start: 2007 FECAL OCCULT BLOOD FECAL OCCULT BLOOD [facility] Start: 2007 Screening for malignant neoplasm of colon [facility] Start: 2007 SIGMOIDOSCOPY SIGMOIDOSCOPY [facility] Start: 01-30-1992 Zoledronic acid therapy ALPHA-1 ANTITRYPSIN DEFICIENCY SCREENING [facility] Start: 1981 HEPATITIS B (1 of 3 - Risk 3-dose series) HEPATITIS B (1 of 3 - Risk 3-dose series) [facility] Start: 01-30-1980 Anxiety Screening Anxiety Screening [facility] Start: 1960 COVID-19 VACCINE (#1) COVID-19 VACCINE (#1) [facility] COVID & INFLUENZA A/ B & RSV PCR, ROUTINE COVID & INFLUENZA A/B & RSV PCR, ROUTINE Microbiology Routine Subacute cough 03/22/2024 1:[address] [facility] [address] Chest [facility] Work Phone: Exercise tolerance test [facility] Work Phone: Hemoglobin.gastroint maurilio nal.lower [Presence] in Stool by Immunoassay FECAL OCCULT BLOOD TEST Lab Routine Well adult exam Colon cancer screening Ordered: 06/09/2022 [facility] Work Phone: Comment on above: Ordered: 06/09/2022 End: 08-27-2023 JACI SCREENING JACI SCREENING Radiology Routine Encounter for screening mammogram for breast cancer 1 Occurrences starting 07/28/2022 until 08/27/2023 [facility] Work Phone: Comment on above: 1 Occurrences starting 07/28/2022 until 08/27/2023 End: 08-18-2024 JACI SCREENING JACI SCREENING Radiology Routine Encounter for screening mammogram for breast cancer 1 Occurrences starting 07/20/2023 until 08/18/2024 [facility] Work Phone: Comment on above: 1 Occurrences starting 07/20/2023 until 08/18/2024 Measurement of respiratory function [facility] Work Phone: End: 12-13-2024 MG Breast Screening JACI SCREENING Radiology Routine Encounter for screening mammogram for breast cancer 1 Occurrences starting 11/14/2023 until 12/13/2024 [facility] Work Phone: Comment on above: 1 Occurrences starting 11/14/2023 until 12/13/2024 MG Breast Screening JACI SCREENIN G Radiology Routine Encounter for screening mammogram for breast cancer 12/22/2023 12:53 PM EDT [facility] Work Phone: Patient Education [facility] Work Phone: Patient referral [facility] Work Phone: End: 01-13-2024 PVR ANK PRESS [facility]K [facility] Vascular Lab Routine Diminished pulses in lower extremity 1 Occurrences starting 01/12/2023 until 01/13/2024 [facility] Work Phone: Comment on above: 1 Occurrences starting 01/12/2023 until 01/13/2024 SWALLOW EVALUATION SWALLOW EVALU ATION Procedures Routine Dysphagia, unspecified type Ordered: 10/14/2021 [facility] Work Phone: Comment on above: Ordered: 10/14/2021 Urine culture [facility] Urine culture [facility] End: 10-26-2024 XR Shoulder - left 3 Views XR SHOULDER GENERAL 3V OR MORE AP/TRUE AP/OTHER LEFT Radiology Routine Chronic pain of both shoulders 1 Occurrences starting 09/27/2023 until 10/26/2024 [facility] Work Phone: Comment on above: 1 Occurrences starting 09/27/2023 until 10/26/2024 XR Shoulder - left 3 Views XR SHOULDER GENERAL 3V OR MORE AP/TRUE AP/OTHER LEFT Radiology Routine Chronic pain of both shoulders 11/11/2023 1:47 PM EDT [facility] Work Phone: End: 04-13-2026 XR Shoulder - left 3 Views XR SHOULDER GENERAL 3V OR MORE AP/TRUE AP/OTHER LEFT Radiology Routine Left shoulder pain, unspecified chronicity 1 Occurrences starting 03/14/2025 until 04/13/2026 [facility] Work Phone: Comment on above: 1 Occurrences starting 03/14/2025 until 04/13/2026 End: 10-26-2024 XR Shoulder - right 3 Views XR SHOULDER GENERAL 3V OR MORE AP/TRUE AP/OTHER RIGHT Radiology Routine Chronic pain of both shoulders 1 Occurrences starting 09/27/2023 until 10/26/2024 [facility] Work Phone: Comment on above: 1 Occurrences starting 09/27/2023 until 10/26/2024 XR Shoulder - right 3 Views XR SHOULDER GENERAL 3V OR MORE AP/TRUE AP/OTHER RIGHT Radiology Routine Chronic pain of both shoulders 11/11/2023 1:47 PM EDT [facility] Immunizations Immunization Date Immunization Notes Care Provider Nick corinne 12-25-2014 tetanus toxoid, redu nitin diphtheria toxoid, and acellular pertussis vaccine, adsorbed Dick Dodd MD Work Phone: [facility] Work Phone: 06-18-2014 influenza, seasonal, injectable Dick Dodd MD Work Phone: [facility] Work Phone: 07-18-[address] Homer Bradford Work Phone: [facility] 07-18-2011 influenza, seasonal, injectable, preservative free Homer Bradford MD Work Phone: [facility] 07-18-2011 pneumococcal polysaccharide vaccine, 23 valent Meagan Yusuf PA-C Work Phone: [facility] 07-18-[address] Esau Bradford Work Phone: [facility] Work Phone: 07-18-2011 pneumococcal vaccine , unspecified formulation [facility] Payers Date Payer Category Payer Self-pay [id number] 2017 Medicaid [facility] MEDICAID [id number] 2017-Present [phone] [address] [place] [address] Medicaid [id number] 2017 Medicaid [id number] 2017 [facility] [id number] Unknown [id number] Unknown [id number] 2.16.840.1.102617.3.579.2.462 Unknown [id number] 2.16.840.1.119368.3.579.2.462 Unknown [id number] 2.16.840.1.672234.3.579.2.462 Unknown [id number] 2.16.840.1.107481.3.579.2.462 Unknown [id number] 2.16.840.1.006799.3.579.2.462 Unknown [id number] 2.16.840.1.148247.3.579.2.462 Unknown [id number] 2.16840.1.567604.3.579.2.462 Unknown [id number] 2.16.840.1.579248.3.579.2.462 Unknown [id number] 2.16.840.1.996714.3.579.2.462 Unknown [id number] 2.16.840.1.065122.3.579.2.462 Unknown [id number] 2.16.840.1.029351.3.579.2.462 Unknown [id number] 2.16.840.1.138337.3.579.2.462 Unknown [id number] 2.16.840.1.431937.3.579.2.462 Unknown [id number] 2.16.840.1.098047.3.579.2.462 Unknown [id number] 2.16.840.1.598983.3.579.2.462 Unknown [id number] 2.16.840.1.446064.3.579.2.462 Unknown [id number] 2.16.840.1.679792.3.579.2.462 Unknown [id number] 2.16.840.1.165588.3.579.2.462 Unknown [id number] 2.16.840.1.015109.3.579.2.462 Unknown [id number] 2.16.840.1.116017.3.579.2.462 Unknown [id number] 2.16.840.1.806307.3.579.2.462 Unknown [id number] 2.16.840.1.712919.3.579.2.462 Unknown [id number] 2.16.840.1.448645.3.579.2.462 Unknown [id number] 2.16.840.1.098812.3.579.2.462 Unknown [id number] 2.16.840.1.624681.3.579.2.462 Unknown [id number] 2.16.840.1.676285.3.579.2.462 Unknown [id number] 2.16.840.1.163639.3.579.2.462 Unknown [id number] 2.16.840.1.692836.3.579.2.462 Unknown [id number] 2.16.840.1.674540.3.579.2.462 Unknown [id number] 2.16.840.1.082390.3.579.2.462 Unknown [id number] 2.16.840.1.032878.3.579.2.462 Unknown [id number] 2.16.840.1.902716.3.579.2.462 Unknown [id number] 2.16.840.1.935113.3.579.2.462 Unknown [id number] 2.16.840.1.750997.3.579.2.462 Unknown [id number] 2.16.840.1.296354.3.579.2.462 Unknown [id number] 2.16.840.1.656165.3.579.2.462 Unknown [id number] 2.16.840.1.943539.3.579.2.462 Unknown [id number] 2.16.840.1.646810.3.579.2.462 Unknown [id number] 2.16.840.1.272811.3.579.2.462 Unknown [id number] 2.16.840.1.634301.3.579.2.462 Unknown [id number] 2.16.840.1.492147.3.579.2.462 Unknown [id number] 2.16.840.1.194132.3.579.2.462 Unknown [id number] 2.16.840.1.564513.3.579.2.462 Social History Date Type Detail Facility Start: 11-26-2016 End: 03-22-2024 Tobacco smoking status [facility] Smokes tobacco daily [facility] Start: 10-17-2015 History of tobacco use Cigarette Smoker [facility] Start: 11-26-2016 End: 03-05-2025 Cigarettes smoked current (pack per day) - Reported 1.5 [facility] Start: 11-26-2016 End: 03-22-2024 Tobacco use and exposure Smokeless tobacco non-user [facility] Start: 10-14-2021 End: 03-21-2025 Alcohol intake Current non-drinker of alcohol (finding) [facility] Start: 1960 Sex Assigned At Not on file [facility] Start: 10-21-2020 End: 06-09-2022 Exposure to SARS-CoV-2 (event) Not sure [facility] Work Phone: Start: 09-28-2021 End: 11-18-2023 Tobacco smoking status [facility] Unknown if ever smoked [facility] Start: 07-01-2020 None [facility] Start: 07-01-2020 With Family [facility] Start: 09-05-2020 Cigarettes [facility] Start: 1960 Sex Assigned At Female [facility] Work Phone: Start: 02-05-2020 End: 04-30-2025 Tobacco smoking status Heavy tobacco smoker (finding) [facility] Mattpaulino Ely Start: 01-12-2023 Tobacco Comment 1.5 to 2 packs/day [facility] Start: 01-12-2023 End: 03-05-2025 Tobacco use panel [facility] Start: 06-18-2012 Adult Depression Screening Assessment 0 [facility] Start: 09-21-2024 End: 11-04-2024 Sex Female (finding) [facility] NEGATED: Highlighted row [facility] Medical Equipment Procedure Code Equipment Code Equipment Original Text Equipment Identifier Dates [id number], [id number], [id number] Start: 07-01-2015 End: 09-27-2023 Comment on above: [...] Assessment Result Facility 01-10-2025 Functional status Chair [facility] Work Phone: 11-07-2024 Functional status Chair;Bathroom Privileg e [facility] Work Phone: 09-21-2024 Functional status Ambulates [facility] Work Phone: 12-21-2021 Functional Status Independent Matt Jin coryasif [facility] 09-07-2021 Functional status Patient Activity Chair [facility] Work Phone: 09-07-2021 Functional status With Assist of 2 [facility] Work Phone: 12-28-2014 Are you deaf, or do you have serious difficulty hearing No 12/28/2014 12:48 PM Tequila Lloyd LPN No [facility] 12-28-2014 Are you blind, or do you have serious difficulty seeing, even when wearing glasses No 12/28/2014 12:48 PM Tequila Lloyd LPN No [facility] 12-28-2014 Do you have serious difficulty walking or climbing stairs Yes 12/28/2014 12:48 PM EDTequila Mcgill LPN Yes [facility] 12-28-2014 Do you have difficul ty dressing or bathing No 12/28/2014 12:48 PM EDTequila Mcgill LPN No [facility] 12-28-2014 Because of a physica l, mental, or emotional condition, do you have difficulty doing errands alone such as visiting a physician's office or shopping No 12/28/2014 12:48 PM EDTequila Mcgill LPN No [facility] Mental Status Date Assessment Result Facility 04-30-2025 Cognitive function Level Of Cons ciousness Awake [facility] Work Phone: 01-11-2025 Cognitive function Voice/Name [facility] Work Phone: 01-08-2025 Cognitive function Touch/Shaking [facility] Work Phone: 11-07-2024 Cognitive function Voice/Name [facility] Work Phone: 11-04-2024 Cognitive function Level Of Cons ciousness Awake;Alert;Appropriate;Fol lows Commands [facility] Work Phone: 09-21-2024 Cognitive function Voice/Name [facility] Work Phone: 11-24-2023 Cognitive function Voice/Name [facility] Work Phone: 03-28-2023 Cognitive function Voice/Name [facility] Work Phone: 12-21-2021 Mental Status Orientation Oriented x 4 [facility] 09-07-2021 Cognitive function Voice/Name [facility] Work Phone: 12-28-2014 Because of a physica l, mental, or emotional condition, do you have serious difficulty concentrating, remembering, or making decisions No 12/28/2014 12:48 PM EDT Tequila Jarrell LPN No [facility] Clinical Notes 10-27-2016 to 05-28-2025 Note Date & Type Note Facility 05-28-2025 Note [facility] 05-27-2025 Note HNO ID: [id number] Author: CAROL ARMENTA MA Service: ? Author Type: It Systems Administrator Type: Progress Notes Filed: 05/27/2025 14:28 Note Text: Scan on 05/27/2025 1:37 PM by ProviderGita PAMontyC: Miscellaneous Clinical Documents [facility] 05-27-2025 Note HNO ID: [id number] Author: JOSE JARRELL MA Service: ? Author Type: It Systems Administrator Type: Progress Notes Filed: 05/29/2025 09:12 Note Text: Scan on 05/25/2025 12:10 AM by ProviderGita PA-C: [facility] ED Scan on 05/24/2025 11:02 PM by ProviderGita PAMontyC: [facility], Hospitalist Scan on 05/28/2025 5:10 PM by ProviderGita PA-C: [facility] Discharge summary [facility] 05-24-2025 Note HNO ID: [id number] Author: HOMER BRADFORD MD Service: ? Author Type: Physician Type: Progress Notes Filed: 05/24/2025 16:36 Note Text: Chief Complaint Patient presents with: Well Adult HPI Pernell Rodriguez is a 65 year old female who presents here today for a Physical. Patient with complex past medical hx as well as those reviewed and addressed below in ROS. Currently resides in Homeless skilled nursing. Patient in office today and states that she's very sick. Was seen in Urgent Care and dx with pneumonia and given an abx. States she took 1 pill and made her sick. She then went into the ED and they said she has a respiratory infection and prescribed her Prednisone, which did help her but she's now out. Her illness is becoming much worse. She asked her [employer] Architect for refills of her Nebulizer solution, but was advised she would not receive any refills until she was seen in the office. She is experiencing cough with phlegm production, chest pain due to coughing and illness, sob, and wheezing. Pernell Rodriguez is a 65-year-old female presenting with persistent cough, green sputum production, chest pain, dyspnea, wheezing, and chills following a recent respiratory infection. Approximately 3 weeks ago, Pernell was diagnosed with pneumonia at an urgent care clinic near [facility] and was prescribed a blue antibiotic, possibly doxycycline. She took one dose, which caused nausea and vomiting, and she did not complete the course. She was subsequently evaluated at [facility], where pneumonia was ruled out and she was diagnosed with a respiratory infection. She was prescribed prednisone 20 mg daily for 7 days, which she completed, but reports it did not help. she was advised to complete the doxy ut she did not take any more. the chest x-ray in ER read by rdiology showed right sided plural effusion/atalectasis but a consolidation could not be ruled out. Pernell continues to experience cough with green sputum, chest pain, dyspnea, wheezing, and chills. She reports two episodes of emesis since the initial doxycycline dose. She has not checked her temperature and is unsure about fevers. She denies hemoptysis. She uses a nebulizer twice daily, occasionally three times daily, but has difficulty obtaining replacement tubing. She reports challenges with medication adherence due to skilled nursing rules requiring her to be outside from 8:00-10:00 and 16:00-18:00, sometimes before she can take her morning medications. She expresses frustration with being outside in cold and rainy weather. Past medical history, appointments, medications, allergies reviewed. Previous Medical History PAST MEDICAL HISTORY Diagnosis Date ASHD (arteriosclerotic heart disease) 10/25/[address] Goins Bilateral leg edema 04/25/2015 Bipolar affective disorder (HCC) 04/25/[address] Colindres Chest pain 02/14/[address] Jacob in [facility]. Had a normal cardiac CTA in 2009 with no calcium. Chronic back pain greater than 3 months duration 04/02/2015 Chronic insomnia 03/12/2020 Ilya Calderón ([facility]) on melatonin. Chronic obstructive pulmonary disease (HCC) 04/25/2015 Chronic pain 01/14/2014 Constipation 02/12/2014 [place] or callus 11/16/2015 Current use of proton [...] 04/16/2014 Major depressive disorder, recurrent episode, moderate ([facility]) 04/25/2015 On disability Migraine without aura and without status migrainosus, not intractable 04/28/[address] Calderón Mixed hyperlipidemia 01/14/2014 Mixed incontinence urge and stress (male)(female) 07/25/2018 Morbid obesity due to excess calories ([facility]) 10/27/2016 Muscle weakness (generalized) 07/25/2018 [...] at 1.5 PPD Stage 3b chronic kidney disea (more content not included)... [facility] 05-01-2025 Note HNO ID: [id number] Author: JOSE JARRELL MA Service: ? Author Type: It Systems Administrator Type: Progress Notes Filed: 05/01/2025 08:20 Note Text: Scan on 04/30/2025 9:35 PM by Provider, External, PA-C: [facility] ED [facility] 04-30-2025 Discharge summary [facility] 04-30-2025 Radiology Diagnostic study note [facility] Imaging Services [address] [place] [address] Chest PA and Lateral MR#: [id number] Acct: [id number] Name: PERNELL RODRIGUEZ CHEKO Rep #: [id number] : 1960 F 65 From: Nolberto Mcmanus MD PCP: Dr. Homer Bradford MD Status: REG ER Study:Chest PA and Lateral Date of Exam: 04/30/25 Exam# [id number] Ordering Dr: Lianne Pinto MD PROCEDURE: CHEST [...] effusion/atelectasis. Underlying consolidation not excluded. Reading Location: [id number] CC: Dr. Ortiz Pinto MD; Dr. Homer Bradford MD ~ Supervisor Composing Room: Signed [facility] 04-30-2025 Discharge summary Note Date/Time April 30, 2025 9:19pm [facility] Medical Records Department [address] [place] [address] Emergency Department Summary 04/30/25 MR#: [id number] Acct: [id number] Name: PERNELL RODRIGUEZ CHEKO Rep #:[id number] : 1960 65 From: Ortiz Pinto [...] nebulizer but reports limited use due to skilled nursing restrictions. - Has a maintenance inhaler with a red top but lacks a rescue inhaler. - Reports increased wheezing and frequent coughing. - Currently residing in a homeless skilled nursing. [facility] Medical History Urinary tract infection Overactive bladder [...] rhythm, no ischemic changes. Independently interpreted by Ortiz fleming. - Labs: Troponin I 18 ng/L; 2-hour [...] % (Auto) 55.4 Lymph % (Auto) 31.2 [place] % (Auto) 8.0 Eos % (Auto) 5.1 [...] effusion/atelectasis. Underlying consolidation not excluded. Reading Location: [facility] Rhythm Strip Rhythm Strip: Sinus Rhythm Rate: 83 Ectopy: None EKG Initial EKG: Attestation: I personally reviewed and interpreted this EKG as follows: Interpretation: Sinus Rhythm and No Acute Injury Pattern Comments: Nml axis & intervals; nml EKG Discharge Plan Triage Chief Complaint: Chest Pain ED Provider: Ortiz Pinto Dx/Rx/DC Orders Clinical Impression: Acute exacerbation of [...] with access to your nebulizer. Print Language: Macedonian Disposition Disposition: Home, Self Care What to do if you have Problems For any increased pain, shortness of breath, bleeding, nausea or vomiting, chestpain, or any unexpected problems, contact your Primary Care Provider. Call [facility] ([phone]) or report to the closest Emergency Room. Call 911 if necessary. 04/30/252118 <Electronically signed by Ortiz Pinto MD> Cosigner Signature (if applicable): CC: Dr. Homer Bradford MD ~ Signed [facility] Work Phone: 1(396) 634-825809-18-2025 NoteHNO ID: [id number] Author: ORTIZ MASSEY MD Service: ? Author Type: Physician Type: Progress Notes Filed: 04/05/2025 11:29 Note Text: Ortiz Massey MD Department of Orthopaedics Orthopaedics [address] [facility] [address] Dept: [phone] Dept April 04, 2025 CHIEF COMPLAINT: New [...] states the heating pad works as well. HPI Pernell Rodriguez is a 65-year-old female with [...] complication, without long-term current use of insulin ([facility]) 1. Adhesive capsulitis of left [...] and further assess adhesive capsulitis; explained that [employer] insurance may require additional physical therapy sessions [...] - Musculoskeletal: - Lef (more content not included)...[facility]09-11-2025 Telephone encounter Note* Telephone Encounter - Homer Bradford MD - 03/28/2025 2:57 PM EDT The following approved medication requests have been transmitted electronically. Requested Prescriptions Signed Prescriptions Disp Refills lidocaine (LIDODERM) 5 % 10 patch 0 Sig: Apply 1 patch as directed once daily. REMOVE AFTER 12 HOURS. Authorizing Provider: HOMER BRADFORD MD [facility]09-11-2025 Miscellaneous Notes* Telephone Encounter - Homer Bradford MD - 03/28/2025 2:57 PM EDT The following approved medication requests have been transmitted electronically. Requested Prescriptions Signed Prescriptions Disp Refills lidocaine (LIDODERM) 5 % 10 patch 0 Sig: Apply 1 patch as directed once daily. REMOVE AFTER 12 HOURS. Authorizing Provider: HOMER BRADFORD MD * Telephone Encounter - Erwin Harvey RN - 03/28/2025 2:15 PM EDT Patient phoned and informed pt doctor would like to have the name and phone number phone number of a cashier and salesperson at the [email or web address] so that we may contact them. Pt looked forit and states she can't find it, but will call back with that information and give to nurse. Pt asking if pcp can send her an Rx for lidocaine patch to [facility]. Reports she needs an Rx in [...] us the name and number of a cashier and salesperson at the [facility]. Then let them know know they need to fax a letter with what they want and a signed release of medical information by Pernell or else it's a HIPA violation. * Telephone Encounter - Erwin Harvey RN - 03/27/2025 2:19 PM EDT Pt reports she picked up the letter in Medical Records and now the [facility] wants a letter from pcp stating all of patient's diagnoses and the names of all the doctors who treat her. Pt would like pcp office to fax this letter to [facility]. Pt will call back with fax number. documented in this encounterTrihealth09-11-2025 Telephone encounter Note * Telephone Encounter - Erwin Harvey RN - 03/28/2025 2:15 PM EDT Patient phoned and informed pt doctor would like to have the name and phone number phone number of a cashier and salesperson at the [facility] so that we may contact them. Pt looked forit and states she can't find it, but will call back with that information and give to nurse. Pt asking if pcp can send her an Rx for lidocaine patch to [facility]. Reports she needs an Rx in order for insurance to cover it. States her shoulder hurts and she is not scheduled with ortho until 04/04/25. [facility]09-11-2025 Telephone encounter Note* Telephone Encounter - Jose [...] is asking for, thanks. Jose Jarrell MA [facility]09-11-2025 Telephone encounter Note* Telephone Encounter - Homer Bradford MD - 03/28/2025 8:18 AM EDT See if Pernell can give us the name and number of a cashier and salesperson at the [facility]. Then let them know know they need to fax a letter with what they want and a signed release of medical information by Pernell or else it's a HIPA violation. [facility]09-10-2025 Telephone encounter Note* Telephone Encounter - Erwin Harvey RN - 03/27/2025 2:19 PM EDT Pt reports she picked up the letter in Medical Records and now the [facility] wants a letter from pcp stating all of patient's diagnoses and the names of all the doctors who treat her. Pt would like pcp office to fax this letter to [facility]. Pt will call back with fax number. [facility]09-09-2025 Telephone encounter Note* Telephone Encounter - Umm [...] York RN March 26, 2025 1:38 PM [facility]09-09-2025 Miscellaneous Notes* Telephone Encounter - Umm York [...] 26, 2025 1:38 PM documented in this encounterTrihealth09-08-2025 Telephone encounter Note * Telephone Encounter - Jose Jarrell MA - 03/25/2025 4:18 PM EDT Call to pt and notified her letter is ready for supervisor picking crew at [facility]. Pt will be her tomorrow to supervisor picking crew. Jose Jarrell MA [facility]09-08-2025 Miscellaneous Notes* Telephone Encounter - Jose Jarrell MA - 03/25/2025 4:18 PM EDT Call to pt and notified her letter is ready for supervisor picking crew at [facility]. Pt will be her tomorrow to supervisor picking crew. Jose Jarrell MA * Telephone Encounter - Homer Bradford MD - 03/25/2025 4:10 PM EDT Let patient know letter ready for supervisor picking crew. * Telephone Encounter - Mary Ann Rodriguez LPN - 03/25/2025 10:14 AM EDT Patient calling back said assisted living is called [facility]. * Telephone Encounter - Mary Ann Rodriguez LPN - 03/25/2025 9:25 AM EDT Patient calling asking for a letter from PCP saying [facility] Patient said [place] [address] [facility] area, did not know the name. Please call patient when ready for supervisor picking crew. Please advise documented in this encounterTrihealth09-08-2025 Telephone encounter Note * Telephone Encounter - Homer Bradford MD - 03/25/2025 4:10 PM EDT Let patient know letter ready for supervisor picking crew. [facility]09-08-2025 Telephone encounter Note* Telephone Encounter - Mary Ann Rodriguez LPN - 03/25/2025 10:14 AM EDT Patient calling back said assisted living is called [facility]. [facility]09-08-2025 Telephone encounter Note* Telephone Encounter - Mary Ann Rodriguez LPN - 03/25/2025 9:25 AM EDT Patient calling asking for a letter from PCP saying he agrees would be good idea for [facility]. Patient said [address] [facility] area, did not know the name. Please call patient when ready for supervisor picking crew. Please advise [facility]09-04-2025 NoteHNO ID: [id number] Author: ALIZE WILCOX OD Service: ? Author Type: Instructional Paraprofessional Type: Progress Notes Filed: 03/21/2025 14:56 Note Text: 1. Type 2 diabetes mellitus without retinopathy (HCC) (Primary) HbA1c reviewed Educated patient to continue care and current treatment regimen with primary care doctor and/or gas operations superintendent to maintain optimum levels as they are [...] with all of its relevant components. Alize Wilcox, OD March 21, 2025 2:54 PMCTriHealth [facility]09-04-[facility] History of Present illness Narrative* Alize Wilcox, OD - 03/21/2025 2:54 PM EDT 1. Type 2 diabetes mellitus without retinopathy (HCC) (Primary) HbA1c reviewed Educated patient to continue care and current treatment regimen with primary care doctor and/or gas operations superintendent to maintain optimum levels as they are [...] 21, 2025 2:54 PM documented in this encounterTrihealth09-02-2025 Telephone encounter Note * Telephone Encounter - oZila Sage MSW - 03/19/2025 9:56 AM EDT Aaron received message from patient asking about name of worker from [employer] that was helpingpatient with housing assistance. Sw called patient back and left message with Elsie Green name and noted that she is the Senior Fishing Captain for [facility]. Sw also left number for [facility] ph. [phone]. [facility]09-02-2025 Miscellaneous Notes* Telephone Encounter - Zoila Sage MSW - 03/19/2025 9:56 AM EDT Aaron received message from patient asking about name of worker from [facility] [employer] that was helpingpatient with housing assistance. Sw called patient back and left message with Elsie Green name and noted that she is the Senior Fishing Captain for [facility]. Sw also left number for [facility] ph. [phone]. documented in this encounterTrihealth08-27-2025 Telephone encounter Note * Telephone Encounter - Zoila Sage MSW - 03/13/2025 10:01 AM EDT Aaron left patient message to return call to check in with patient regarding housing assistance needs. [facility]08-27-2025 Miscellaneous Notes* Telephone Encounter - Zoila Sage MSW - 03/13/2025 10:01 AM EDT Aaron left patient message to return call to check in with patient regarding [...] to say to patient. documented in this encounterTrihealth08-20-2025 Telephone encounter Note * Telephone Encounter - Zoila Sage MSW - 03/06/2025 10:31 AM EDT Patient spoke with Aaron and told her that she has not yet called [employer]. Patient states that she will call them now and see what type of help they can provide through Medicaid Waiver for housing support. [facility]08-19-2025 Telephone encounter Note* Telephone Encounter - Zoila Sage MSW - 03/05/2025 3:41 PM EDT Patient and Sw spoke regarding [employer] and patient is going to give them a call to see what type of housing resource help they may offer. Sw will check back in with patient tomorrow and see what [employer] had to say to patient. [facility]08-19-2025 Miscellaneous Notes* Telephone Encounter - Zoila Sage [...] said that she tried to get to [employer], but couldn't find her walker. Patient asked if Sw for have Elsie give her a call again. Sw called and left Jimy Zimmerman a message asking that she call Sw back to discuss. documented in this encounterTrihealth08-19-2025 Telephone encounter Note * Telephone Encounter - Zoila Sage MSW - 03/05/2025 12:00 PM EDT Aaron spoke with Jimy Zimmerman, Senior Outreach. Elsie reports that she will call patient this afternoon to discuss housing needs. [facility]08-18-2025 Telephone encounter Note* Telephone Encounter - Zoila Sage MSW - 03/04/2025 12:41 PM EDT Patient called Aaron and said that the lady she is currently living with wants her to move out this weekend. Sw asked if patient and Jimy Zimmerman, had been working on housing with her and patient said that she tried to get to [employer], but couldn't find her walker. Patient asked if Sw for have Elsie give her a call again. Sw called and left Jimy Zimmerman a message asking that she call Sw back to discuss. [facility]08-16-2025 Telephone encounter Note* Telephone Encounter - Homer [...] with cardio Authorizing Provider: HOMER BRADFORD MD [facility]08-16-2025 Miscellaneous Notes* Telephone Encounter - Homer Bradford [...] 01, 2025 3:36 PM documented in this encounterTrihealth08-15-2025 Telephone encounter Note * Telephone Encounter - [...] Monreal RN March 01, 2025 3:36 PM [facility]08-07-2025 NoteHNO ID: [id number] Author: HOMER BRADFORD MD Service: ? Author [...] She is under the care of a hazardous material specialist, who removed the scab, but she missed a recent appointment due to transportation issues. She also reports a history of a sore on the front of her leg, which was deemed perfect by her hazardous material specialist. She denies recent fevers or chills. [...] and has an upcoming appointment with her ship officer, Dr. Christopher, on the . She is also trying to get more exercise and uses a roller walker for mobility. She is actively seeking housing and is in contact with the [employer], although she reports difficulties with the new counseling case manager. She is currently staying with a [...] Chest pain 02/14/[address] Jacob in [facility]. Had a normal cardiac CTA in 2009 with no calcium. Chronic back pain greater than 3 months duration 04/02/2015 Chronic insomnia 03/12/2020 Ilya Calderón ([facility]) on melatonin. Chronic obstructive pulmonary disease ([facility]) 04/25/2015 Chronic pain 01/14/2014 Constipation 02/12/2014 [place] or callus 11/16/2015 Current use of proton pump inhibitor 10/11/2017 CVA (cerebral infarction) 01/14/2014 Diabetic eye exam ([facility]) 01/14/[address] Sanchez last done 03/02/2019 Diabetic foot ([facility]) 01/14/[address] Martins Extrapyramidal [...] 04/16/2014 Major depressive disorder, recurrent episode, moderate ([facility]) 04/25/2015 On disability Migraine without aura and without status migrainosus, not intractable 04/28/[address] Calderón Mixed hyperlipidemia 01/14/2014 Mixed incontinence urge and stress (male)(female) 07/25/2018 Morbid obesity due to excess calories ([facility]) 10/27/2016 Muscle weakness (generalize (more content not included)...[facility]07-17-2025 History and physical note Author Vijay Love [facility] Note Date/Time January 31, 2025 12:1 3pm [facility] [address] [place] [address] H&P Exam - Wound Care 01/31/25 1152 MR#: [id number] Acct: [id number] Name: PERNELL RODRIGUEZ Rep #:[id number] : 1960 65 From: Vijay Arthur [...] of cigarettes per day for 50 years. [facility] Medical History Decubitus ulcer of buttock, stage [...] Recorded Date Recorded By Document 01/29/25 10:17 [id number] 01/29/25 10:25 01/29/25 10:17 - Today's Visit [...] Is Patient Pain Free? Yes WC - Nurse 1 - General Ulcer Measurement Start: 01/29/25 10:15 Freq: Status: Active Protocol: Activity Type Activity Date Activity User E-sign Co-sign Detail Recorded Client Recorded Date Recorded By Document 01/29/25 10:17 KW [id number] 01/29/25 10:25 KW 01/29/25 10:17 Wound Center Nurse 1 #1 [...] Used 5% Lidocaine Gel -Wound Comment(s) scabbed WC - Nurse 2 - General Ulcer CM Notes Start: 01/29/25 10:15 Freq: Status: Active Protocol: Activity Type Activity Date Activity User E-sign Co-sign Detail Recorded Client Recorded Date Recorded By Document 01/29/25 10:45 DS [id number] 01/29/25 10:48 DS 01/29/25 10:45 Wound Center [...] Is Patient Pain Free? Yes WC - Nurse 3 - General Ulcer D/C NN Start: 01/29/25 10:15 Freq: Status: Active Protocol: Activity Type Activity Date Activity User E-sign Co-sign Detail Recorded Client Recorded Date Recorded By Document 01/29/25 11:02 MELLISA [id number] 01/29/25 11:02 MELLISA 01/29/25 11:02 Wound Care [...] Charges/Coding Visit Charges Office Visits / Consults: [id number] OV L4 New 45min Assessment/Plan Assessment/Plan (1) [...] (if applicable): CC: ~ Signed [facility] Work Phone: 1(513) 820-219407-17-2025 Progress note Author Taylor Julian [facility] Note Date/Time January 31, 2025 1:25 pm [facility] [place] [address] [place] [address] OFFICE VISIT Date of Service: 01/31/25 MR#: [id number] Acct: [id number] Name: PERNELL RODRIGUEZ Rep #: [id number] : 1960 Provider: GAY Julian Age/Sex: 65/F [place] [facility] Status: Signed Assessment and Plan Assessment and [...] with a friend but using multiple social studies department chair to find housing. She was evicted from [...] Additional Comments: This note was generated with [employer] dictation software. It may contain incorrectwords, spelling, [...] had presented to the emergency department by adriana in atrial flutter with heart rate of [...] Reasons: Hospital FU Chief Complaint: est annual Lead Cargo Mover Required: No DME Vendor: N/a Accompanied by: [...] (Reviewed 01/31/25 @ 13:00 by Taylor Julian CHILDREN'S LUNCHROOM SUPERVISOR, CHILDREN'S LUNCHROOM SUPERVISOR-C) Decubitus ulcer of buttock, stage 1 Encounter [...] (Reviewed 01/31/25 @ 13:00 by Taylor Julian CHILDREN'S LUNCHROOM SUPERVISOR, CHILDREN'S LUNCHROOM SUPERVISOR-C) Hx of surgical procedure History of carpal tunnel surgery History of elbow surgery H/O shoulder surgery H/O hand surgery H/O dilation and curettage Hx of cholecystectomy History of tonsillectomy Family History (Reviewed 01/31/25 @ 13:00 by Taylor Julian CHILDREN'S LUNCHROOM SUPERVISOR, CHILDREN'S LUNCHROOM SUPERVISOR-C) Grandmother Cancer stomach Father Cancer lung Sister Breast cancer Social History (Reviewed 01/31/25 @ 13:00 by Taylor Julian CHILDREN'S LUNCHROOM SUPERVISOR, CHILDREN'S LUNCHROOM SUPERVISOR-C) household members: other details: Living in apt [...] 1325 <Electronically signed by Taylor hassan NP CHILDREN'S LUNCHROOM SUPERVISOR-C> Date _ Taylor Julian NP CHILDREN'S LUNCHROOM SUPERVISOR-C Cosigner Signature: Date (if applicable) CC: Dr. Homer Bradford MD ~ [employer] Work Phone: 1(879) 223-709407-16-2025 Telephone encounter Note* Telephone Encounter - Aspen Bell LPN - 01/30/2025 12:56 PM EDT Pt notified rx's refilled to get her to her Cardiology appointment and then needs to get refills from [facility]. Pt verbalizes understanding. Aspen Bell LPN [facility]07-16-2025 Miscellaneous Notes* Telephone Encounter - Aspen Bell LPN - 01/30/2025 12:56 PM EDT Pt notified rx's refilled to get her to her Cardiology appointment and then needs to get refills from [facility]. Pt verbalizes understanding. Aspen Bell LPN * [...] EDT Does she have appt with her hair or beauty salon assistant scheduled yet. * Telephone Encounter - Priyanka [...] cardio Priyanka Chavez RN documented in this encounterTrihealth07-16-2025 Telephone encounter Note * Telephone Encounter - [...] with cardio Authorizing Provider: MEAGAN YUSUF PA-C [facility]07-16-2025 Telephone encounter Note* Telephone Encounter - Aspen Bell LPN - 01/30/2025 12:02 PM EDT Spoke with pt. States she has one scheduled in Feb. Believes it's the 3rd or 7th. Advised pt would contact her to let her know if refills have been sent in for her. Aspen Bell LPN [facility]07-16-2025 Telephone encounter Note* Telephone Encounter - Meagan Yusuf PA-C - 01/30/2025 8:13 AM EDT Does she have appt with her hair or beauty salon assistant scheduled yet. [facility]07-15-2025 Telephone encounter Note* Telephone Encounter - Priyanka [...] her appt with cardio Priyanka Chavez RN [facility]07-15-2025 Telephone encounter Note* Telephone Encounter - Aspen Bell LPN - 2025 3:07 PM EDT Pt notified of same with verbalized understanding. Aspen Bell LPN [facility]07-15-2025 Miscellaneous Notes* Telephone Encounter - Aspen Bell [...] scheduled? Meagan Yusuf PA-C documented in this encounterTrihealth07-15-2025 Evaluation note* Diagnosis Onset Date Resolution Status [...] acute A ugust 2024 11:16am [facility] Work Phone: 1(357) 563-411007-14-2025 Telephone encounter Note* Telephone Encounter - Meagan Yusuf PA-C - 01/28/2025 11:09 AM EDT Noted. She should schedule once able unless she wants to see someone else. [facility]07-14-2025 Telephone encounter Note* Telephone Encounter - Umm York RN - 01/28/2025 9:47 AM EDT Patient notified of results and provider's instructions. Patient verbalizes understanding. Patient has been trying to get a hold of Dr. Alba's office. They are not scheduling until 02/15 due to office remodel. Umm York RN [facility]07-14-2025 Telephone encounter Note* Telephone Encounter - Aspen Bell LPN - 01/28/2025 9:42 AM EDT Attempted to contact pt. No answer and vm is not set up. Will need to keep trying to contact pt. Also sent pt a MC message to contact office. Aspen Bell LPN [facility]07-14-2025 Telephone encounter Note* Telephone Encounter - Meagan Yusuf PA-C - 01/28/2025 8:56 AM EDT Urine culture is negative. She needs to see urology. This is a consult Dr. Bradford placed in December for Dr. Alba. Did she get scheduled? Meagan Yusuf PA-C [facility]07-11-2025 NoteHNO ID: [id number] Author: MEAGAN YUSUF PA-C Service: ? Author Type: Physician Nutrition Therapist Type: Progress Notes Filed: 01/25/2025 11:00 Note Text: Chief Complaint No chief complaint on file. LI Rodriguez is a 64 year old female [...] Chest pain 02/14/[address] Jacob in [facility]. Had a normal cardiac CTA in 2009 with no calcium. Chronic back pain greater than 3 months duration 04/02/2015 Chronic insomnia 03/12/2020 Ilya Calderón ([facility]) on melatonin. Chronic obstructive pulmonary disease (HCC) 04/25/2015 Chronic pain 01/14/2014 Constipation 02/12/2014 [place] or callus 11/16/2015 Current use of proton pump inhibitor 10/11/2017 CVA (cerebral infarction) 01/14/2014 Diabetic eye exam (HCC) 01/14/[address] Sanchez last done 03/02/2019 Diabetic foot ([facility]) 01/14/[address] Martins Extrapyramidal [...] 04/16/2014 Major depressive disorder, recurrent episode, moderate ([facility]) 04/25/2015 On disability Migraine without aura and without status migrainosus, not intractable 04/28/[address] Calderón Mixed hyperlipidemia 01/14/2014 Mixed incontinence urge and stress (male)(female) 07/25/2018 Morbid obesity due to excess calories ([facility]) 10/27/2016 Muscle weakness (generalized) 07/25/2018 [...] 04/25/2015 Type 2 diabetes mellitus without complication ([facility]) 04/25/2015 Urinary incontinence 07/08/2017 Well adult exam 10/27/2016 last done: 06/09/2022 Previous Surgical History PAST SURGICAL HISTORY Procedure Laterality Date *STRESS TEST PC 05/06/2016 WNL 2D ECHO (EXEP) 01/14/2014 EF=65% Trival NH, TI, PI, LA enlarged. CARPAL TUNNEL Bilateral [...] [Thioridaz* GI Upset Pneumova (more content not included)...[facility]07-11-2025 History of Present illness Narrative* Meagan Yusuf [...] Chest pain 02/14/[address] Jacob in [facility]. Had a normal cardiac CTA in 2009 with no calcium. Chronic back pain greater than 3 months duration 04/02/2015 Chronic insomnia 03/12/2020 Ilya Calderón ([facility]) on melatonin. Chronic obstructive pulmonary disease (HCC) 04/25/2015 Chronic pain 01/14/2014 Constipation 02/12/2014 [place] or callus 11/16/2015 Current use of proton pump inhibitor 10/11/2017 CVA (cerebral infarction) 01/14/2014 Diabetic eye exam ([facility]) 01/14/[address] Sanchez last done 03/02/2019 Diabetic foot ([facility]) 01/14/[address] Martins Extrapyramidal [...] 04/16/2014 Major depressive disorder, recurrent episode, moderate ([facility]) 04/25/2015 On disability Migraine without aura and without status migrainosus, not intractable 04/28/[address] Calderón Mixed hyperlipidemia 01/14/2014 Mixed incontinence urge and stress (male)(female) 07/25/2018 Morbid obesity due to excess calories ([facility]) 10/27/2016 Muscle weakness (generalized) 07/25/2018 [...] WNL 2D ECHO (EXEP) 01/14/2014 EF=65% Trival NH, TI, PI, LA enlarged. CARPAL TUNNEL Bilateral 08/28 and 09/25 COLONOSCOPY FLX DX W/COLLJ SPEC WHEN PFRMD 2011 [facility] Colonoscopy, no polyps repeat 10 yrs CRYOCAUTERY [...] - Initiated antibiotic therapy; prescription sent to [facility]. - Will reassess based on urine culture results. 3. Pressure injury of sacral region, stage 2 (HCC) (L89.152) - Exam reveals a crusted lesion with surrounding erythema and tenderness. - Initiated topical antibiotic ointment; prescription sent to [facility]. - Monitor for signs of infection and promote healing. Meagan Yusuf PA-C Recording using [employer] software for draft documentation of the visit was discussed with the patient/authorized ambulatory services representative; all questions welcomed and answered. Patient/authorized ambulatory services representative agreed to proceed documented in this encounterTrihealth07-11-2025 Telephone encounter Note * Telephone Encounter - Aspen Bell LPN - 01/25/2025 10:07 AM EDT Pt notified of message at ov 01/25/25. Aspen Bell LPN [facility]07-11-2025 Miscellaneous Notes* Telephone Encounter - Aspen Bell [...] up. Will need to call back. Caterina aSlazar RN * Telephone Encounter - Homer Bradford MD - 01/21/2025 4:40 PM EDT This script was given 12/18/2024 with one refill which would get her till early February. Patient was informed this was a one time script till she got in to see Cardio and needs to do so. [facility] [employer] can help with this. * Telephone Encounter [...] 21, 2025 11:48 AM documented in this encounterTrihealth07-08-2025 Telephone encounter Note * Telephone Encounter - Aspen Bell LPN - 01/22/2025 1:46 PM EDT Attempted to contact pt. No answer and vm has not been set up. MC was logged into on 12/18/24. Sent pt a MC msg to contact office. Aspen Bell LPN [facility]07-08-2025 NotePatient Outreach (FAMPWS) PERNELL RODRIGUEZ ([id number]) 1960 F Date Time Provider Department 01/22/25 [...] for screening mammogram for breast cancer [Z12.31] Order(s):JACI SCREENING W YOHANNES [[id number]] Order #: [id number] FUTURE Prescriptions as of 02/22/2025 - aspirin, [...] 04/25/2015 Major depressive disorder, recurrent episode, m*04/25/2015 [place] or callus [L84] 11/16/2015 Nodule of left lung [R91.1] 12/17/2015 Well adult exam [Z00.00] 10/27/2016 Colon cancer screening [Z12.11] 10/27/2016 Migraine without aura and without status migrai*04/28/2017 Irritable bowel syndrome with both constipation*04/28/2017 Urinary incontinence [R32] 07/08/2017 11/28/2021 Incontinence of feces [R15.9] 07/08/2017 Encounter for gynecological examination without*05/23/2018 Mu (more content not included)...[facility]07-07-2025 Telephone encounter Note* Telephone Encounter - Caterina Salazar RN - 01/21/2025 7:56 PM EDT Called Pt and no answer. Pt did not have voicemail set up. Will need to call back. Caterina Salazar RN [facility]07-07-2025 Telephone encounter Note* Telephone Encounter - Homer Bradford MD - 01/21/2025 4:40 PM EDT This script was given 12/18/2024 with one refill which would get her till early February. Patient was informed this was a one time script till she got in to see Cardio and needs to do so. She should see if the [employer] can help with this. [facility]07-07-2025 Telephone encounter Note* Telephone Encounter - Mary Ann Rodriguez LPN - 01/21/2025 2:11 PM EDT Patient returned call and went over results, notes from Meagan MAY with understanding. [facility]07-07-2025 Miscellaneous Notes* Telephone Encounter - Mary Ann [...] okay/stable. Meagan Yusuf PA-C documented in this encounterTrihealth07-07-2025 Telephone encounter Note * Telephone Encounter - [...] Hannah Bravo January 21, 2025 11:48 AM [facility] Work Phone: [phone]) 251-324507-07-2025 Telephone encounter Note* Telephone Encounter - Jose Jarrell MA - 01/21/2025 11:46 AM EDT Attempted to reach pt but was unable to LM due to VM not being setup yet. Will try calling again later. Jose Jarrell MA [facility]07-07-2025 Telephone encounter Note* Telephone Encounter - Meagan Yusuf PA-C - 01/21/2025 11:16 AM EDT Let patient know that her labs are okay/stable. Meagan Yusuf PA-C [facility]07-03-2025 NoteHNO ID: [id number] Author: MEAGAN YUSUF PA-C Service: ? Author Type: Physician Nutrition Therapist Type: Progress Notes Filed: 01/17/2025 12:02 Note [...] with a friend but will move to [employer] around the or . - Lost manager case through [facility]; no current manager case. 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 Past medical history, appointments, medications, allergies reviewed. Previous Medical History PAST MEDICAL HISTORY Diagnosis Date ASHD (arteriosclerotic heart disease) 10/25/[address] Goins Bilateral leg edema 04/25/2015 Bipolar affective disorder (HCC) 04/25/[address] Colindres Chest pain 02/14/[address] Jacob in [facility]. Had a normal cardiac CTA in 2009 with no calcium. Chronic back pain greater than 3 months duration 04/02/2015 Chronic insomnia 03/12/2020 Ilya Calderón ([facility]) on melatonin. Chronic obstructive pulmonary disease (HCC) 04/25/2015 Chronic pain 01/14/2014 Constipation 02/12/2014 [place] or callus 11/16/2015 Current use of proton pump inhibitor 10/11/2017 CVA (cerebral infarction) 01/14/2014 Diabetic eye exam ([facility]) 01/14/[address] Sanchez last done 03/02/2019 Diabetic foot ([facility]) 01/14/[address] Martins Extrapyramidal [...] WNL 2D ECHO (EXEP) 01/14/2014 EF=65% Trival NH, TI, PI, LA enlarged. CARPAL TUNNEL Bilateral 08/28 and 09/25 COLONOSCOPY FLX DX W/COLLJ SPEC WHEN PFRMD 2011 [facility] Colonoscopy, no polyps repeat 10 yrs CRYOCAUTERY OF CERVIX or twice DILATION AND CURETTA (more content not included)...[facility] 01-17-2025 History of Present illness Narrative* Meagan Yusuf PA-C - 01/17/2025 11:26 AM EDT Chief Complaint Patient presents with: Hospital F/U [facility] Pernell Rodriguez is a 64 year old [...] with a friend but will move to [employer] around the or . - Lost manager case through [facility]; no current manager case. 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 Past medical history, appointments, medications, allergies reviewed. Previous Medical History PAST MEDICAL HISTORY Diagnosis Date ASHD (arteriosclerotic heart disease) 10/25/[address] Goins Bilateral leg edema 04/25/2015 Bipolar affective disorder (HCC) 04/25/[address] Colindres Chest pain 02/14/[address] Jacob in [facility]. Had a normal cardiac CTA in 2009 with no calcium. Chronic back pain greater than 3 months duration 04/02/2015 Chronic insomnia 03/12/2020 Ilya Calderón ([facility]) on melatonin. Chronic obstructive pulmonary disease (HCC) 04/25/2015 Chronic pain 01/14/2014 Constipation 02/12/2014 [place] or callus 11/16/2015 Current use of proton [...] 04/16/2014 Major depressive disorder, recurrent episode, moderate ([facility]) 04/25/2015 On disability Migraine without aura and without status migrainosus, not intractable 04/28/[address] Calderón Mixed hyperlipidemia 01/14/2014 Mixed incontinence urge and stress (male)(female) 07/25/2018 Morbid obesity due to excess calories ([facility]) 10/27/2016 Muscle weakness (generalized) 07/25/2018 [...] WNL 2D ECHO (EXEP) 01/14/2014 EF=65% Trival NH, TI, PI, LA enlarged. CARPAL TUNNEL Bilateral [...] Retinal Exam due on 01/05/2024 Covid-19 Vaccine( - 2023- season) Never done Urine Albumin:Creatinine Ratio due [...] (arteriosclerotic heart disease) (I25.10) - Follow-up with hair or beauty salon assistant Dr. Goins is pending; patient has been unable to reach the office. - Provided patient with the hair or beauty salon assistant's office phone number. 3. Chronic obstructive pulmonary disease, unspecified COPD type (HCC) (J44.9) - Discussed issues with current nebulizer setup; patient prefers a nebulizer with a mask. - Will coordinate with respiratory therapy to provide appropriate nebulizer equipment. 4. Wound of left lower extremity, subsequent encounter (S85.234M) - Noted wound on the left lower [...] and ensure continued improvement. - Follow-up with queen producer Dr. Diaz is pending; patient to complete blood tests prior to the appointment. 7. Paroxysmal atrial fibrillation (HCC) (I48.0) - No specific details discussed during the visit. 8. Mixed hyperlipidemia (E78.2) - No specific details discussed during the visit. Meagan Yusuf PA-C I spent a total of 33 minutes on the date of the service which included preparing to see the patient, [id number] patient care, completing clinical documentation, obtaining and/or reviewing separately obtained history, performing a medically appropriate examination, counseling and educating the pat ient/family/caregiver, ordering medications, tests, or procedures, and communicating results to thepatient/family/caregiver. Recording using [employer] software for draft documentation of the visit was discussed with the patient/authorized ambulatory services representative; all questions welcomed and answered. Patient/authorized ambulatory services representative agreed to proceed documented in this encounterTrihealth06-27-2025 Telephone encounter Note * Telephone Encounter - Jose Jarrell MA - 01/11/2025 3:53 PM EDT Provider signed and faxed back to number below. Jose Jarrell MA [facility]06-27-2025 Miscellaneous Notes* Telephone Encounter - Jose Jarrell MA - 01/11/2025 3:53 PM EDT Provider signed and faxed back to number below. Jose Jarrell MA * Telephone Encounter - Jose Jarrell MA - 01/11/2025 3:46 PM EDT Type of form: Medical Necessity - received from Home Care Delivery Form received via fax When form is completed, Fax form to [phone] Form has been forwarded to Physician Desk: Dr. Sanchez Jarrell MA documented in this encounterTrihealth06-27-2025 Telephone encounter Note * Telephone Encounter - Jose Jarrell MA - 01/11/2025 3:46 PM EDT Type of form: Medical Necessity - received from Home Care Delivery Form received via fax When form is completed, Fax form to [phone] Form has been forwarded to Physician Desk: Dr. Sanchez Jarrell MA [facility]06-27-2025 Discharge summary Author Peter Herbert [facility] Note Date/Time January 11, 2025 12:0 5pm [facility] Medical Records Department [address] [place] [address] Instructions for Home/Discharge Instructions 01/11/25 1016 MR#: [id number] Acct: [id number] Name: PERNELL RODRIGUEZ CHEKO Rep #:[id number] : 1960 64 From: Peter Arthur [...] [Non-Staff] - 02/26/25 12:00 pm (Provide A Ride([phone]) will pick you up at 11-11:30, and [...] Dr. Homer Bradford MD~ Signed [facility] Work Phone: 1(952) 546-565906-27-2025 [facility]06-26-2025 Progress note Author Peter Herbert [facility] Note Date/Time January 10, 2025 8:31 am [facility] Medical Records Department [address] [facility] [address] Progress Note - Hospitalist 01/10/25 0731 MR#: [id number] Acct: [id number] Name: PERNELL RODRIGUEZ Rep #:[id number] : 1960 64 From: Peter Arthur [...] Small nonobstructive bilateral intrarenal calculi. Reading Location: [facility] Physical Exam Narrative Seen and examined. Patient [...] 64-year-old female who presented to [facility] ED on 01/08/2025 with altered mentation. 1. Sepsis suspected secondary to UTI ? Chrome Worker following. Met sepsis criteria on admit with [...] reportedly been staying with a friend in [place] recently and has been applying for housing. [...] code, verified Charges/Coding Visit Charges Inpatient E&M: 72270 Subs Hosp L2 01/10/25 08 <Electronically signed by Peter Herbert MD> Cosigner Signature (if applicable): CC: ~ Signed ADDENDUM by Dr. Peter Herbert MD on 01/10/25 at 0831 Addendum Small wound in the left leg. Venous duplex ordered. Wound nurse consulted 01/10/25830<Electronically signed by Peter Herbert MD> Cosigner Signature (if applicable): cc: ~* Signed [facility] Work Phone: 1(145) 619-563206-26-2025 Progress note Author Dallin Christopher [facility] Note Date/Time January 10, 2025 8:16 am [facility] Medical Records Department [address] [place] [address] Progress Note - Chrome Worker 01/10/25 0809 MR#: [id number] Acct: [id number] Name: PERNELL RODRIGUEZ CHEKO Rep #:[id number] : 1960 64 From: Dallin Christopher [...] as tolerated. This note was generated with [employer] dictation software. It may contain incorrectwords, spelling, [...] Small nonobstructive bilateral intrarenal calculi. Reading Location: [facility] Physical Exam Const alert, oriented x3 [...] affect normal Charges/Coding Visit Charges Inpatient E&M: 72127 Subs Hosp L2 01/10/25 0816 <Electronically signed by Dallin Christopher DO> Cosigner Signature (if applicable): CC: ~ Signed [facility] Work Phone: 1(470) 710-241606-25-2025 Progress note Author Luis Antonio Navarro [facility] Note Date/Time January 09, 2025 5:22 pm [facility] Medical Records Department [address] [place] [address] Progress Note - Hospitalist 01/09/25 1209 MR#: [id number] Acct: [id number] Name: PERNELL RODRIGUEZ Rep #:[id number] : 1960 64 From: Luis Antonio [...] 94 Nasal Cannula 2 01/09/25 11:00 01/09/25 11:01/09/25 11:00 01/09/25 11:00 01/09/25 11:00 01/09/25 11:00 [...] 76.0 H, Lymph % (Auto) 15.8 L, [place] % (Auto) 6.6, Eos % (Auto) 1.3, [...] Sl. Cloudy, Urine pH 6.0, Ur Specific [place] 1.020,Urine Protein 30 H, Urine Glucose (UA) [...] % (Auto) 63.5, Lymph % (Auto) 25.4, [place] % (Auto) 9.5, Eos % (Auto) 1.2, [...] acute intracranial abnormality. Senescent changes. Reading Location: [facility] Chest X-Ray 01/08/25 17:00 IMPRESSION: Slightly limited exam, without definite evidence of an acute cardiopulmonary abnormality. Reading Location: [facility] Physical Exam Const alert, oriented x3 [...] 64-year-old female who presented to [facility] ED on 01/08/2025 with altered mentation. 1. Sepsis suspected secondary to UTI ? Chrome Worker following. Met sepsis criteria on admit with [...] reportedly been staying with a friend in [place] recently and has been applying for housing. [...] 35 minutes. Charges/Coding Visit Charges Inpatient E&M: 44995 Subs Hosp L2 01/09/25 1722 <Electronically signed by Luis Antonio Navarro DO> Cosigner Signature (if applicable): CC: ~ Signed [facility] Work Phone: 1(235) 742-142406-25-2025 Radiology Diagnostic study [facility]06-25-2025 NoteHNO ID: [id number] Author: JOSE JARRELL MA Service: ? Author Type: It Systems Administrator Type: Progress Notes Filed: 01/09/2025 07:33 Note Text: Pt admitted into [facility]. Scan on 01/08/2025 7:49 PM by ProviderGita PA-C: [facility] Scan on 01/08/2025 11:49 PM by ProviderGita PA-C: Hospitalist [facility] Scan on 01/09/2025 2:19 AM by ProviderGita PA-C: Chrome Worker [facility]06-25-2025 History of Present illness Narrative* Jose Jarrell MA - 01/09/2025 7:32 AM EDT Pt admitted into [facility]. Scan on 01/08/2025 7:49 PM by ProviderGita PA-C: [facility] Scan on 01/08/2025 11:49 PM by ProviderGita PA-C: Hospitalist [facility] Scan on 01/09/2025 2:19 AM by ProviderGita PA-C: Chrome Worker [facility] documented in this encounterTrihealth06-25-2025 Consult note Author Jovani Wynn [facility] Note Date/Time January 09, 2025 1:55 am [facility] Medical Records Department [address] [place] [id number] Consultation - Chrome Worker 01/09/25 0141 MR#: [id number] Acct: [id number] Name: PERNELL RODRIGUEZ Rep #:[id number] : 1960 64 From: Jovani Wynn MD PCP: Dr. Homer Bradford MD Status:ADM IN Location: ICU ICU09-1 HPI Consult Data Date of Consult: 01/09/25 HPI Narrative Reason for Consultation: Sepsis and shock HPI Narrative: PERNELL RODRIGUEZ, is a 64 F who presents as brought in by responders after having been found confused at homeless skilled nursing. Patient is a poor participant in HPI [...] bag. She is on 2Lm [place] O2. [facility] Medical History Urinary tract infection History of [...] mg Q4H PRN PRN Administration Fever, pain 1-1010 Al Hydroxide/Mg Hydroxide 30 ml 01/08/25 20:32 Mag Hydrox/Al Hydrox/Simeth 30 Ml Udc PO Q6H PRN PRN Gastric Burning Albuterol Sulfate 2.5 mg 01/08/25 20:32 Albuterol 2.5 Mg/3 Ml Vial.Neb. INHALATION Q2H PRN PRN Dyspnea, wheezing Albuterol/Ipratropium 3 ml 01/08/25 20:32 Ipratropium/Albuterol Sulfate 3 Ml Ampul.Neb INHALATION Q6HWA.RT ITZEL Apixaban 5 mg 01/08/25 22:00 01/08/25 21:44 Apixaban 5 Mg Tablet PO 5 mg Q12 ITZEL Administration Aspirin 81 mg 01/09/25 08:00 Aspirin 81 Mg Tab.Chew PO BREAKFAST ITZEL Atorvastatin Calcium 5 mg 01/08/25 22:00 01/08/25 21:51 Atorvastatin Calcium 10 Mg Tablet PO 5 mg QHS ITZEL Administration Calamine/Phenol 1 applic 01/08/25 22:00 01/08/25 21:45 Menthol/Lanolin/Calamine/Znox 113 Gm Tube TOPICAL 1 applic 4X/DAY ITZEL Administration Protocol Citalopram Hydrobromide 10 mg 01/09/25 10:00 Citalopram 10 Mg Tablet PO DAILY ITZEL Glucagon 1 mg 01/08/25 23:19 Glucagon 1 Mg/Ml Syringe IM X1 PRN Hypoglycemia Protocol Guaifenesin 10 ml 01/08/25 20:32 Guaifenesin 10 Ml Udc (200mg/10ml) PO Q4H PRN PRN COUGH Sodium Chloride 1,000 mls @ 100 mls/hr 01/08/25 20:32 01/08/25 21:51 IV 01/09/25 11:31 100 mls/hr .Q10H ITZEL Administration Norepinephrine Bitartrate 8 mg 250 mls @ 9.375 mls/hr 01/08/25 22:55 01/09/2501:00 / Sodium Chloride CONT INF 6 mcg/min .P80Z48A ITZEL 11.3 mls/hr Titration Protocol 5 MCG/MIN Sodium Chloride 250 mls @ 15 mls/hr 01/08/25 23:16 IV .R47H15M PRN Saline Flush Sodium Chloride 250 mls @ 15 mls/hr 01/08/25 23:16 IV .D89W04O PRN Additional IVPB Infusion Dextrose 250 mls @ 0 mls/hr 01/08/25 23:19 Dextrose 10%-Water IV .Q0M PRN HYPOGLYCEMIA Protocol As Directed Lactated Ringer's 1,000 mls @ 500 mls/hr 01/09/25 00:45 01/09/25 01:15 IV 01/09/25 02:44 500 mls/hr .Q2H ITZEL Administration Insulin Human Lispro 0 unit 01/09/25 07:00 Insulin Lispro 100 Unit/Ml Insuln.Pen SC ACHS [facility] Protocol Levofloxacin 750 mg 01/10/25 22:00 Levofloxacin 750 Mg Tablet PO Q48@2200 [facility] Melatonin 3 mg 01/08/25 20:32 Melatonin 3 Mg Tablet PO QHS PRN PRN INSOMNIA Midodrine 10 mg 01/09/25 08:00 Midodrine Hcl 5 Mg Tablet PO 01/12/25 23:59 TIDCM [facility] Ondansetron HCl 4 mg 01/08/25 20:32 Ondansetron 4 Mg/2 Ml Vial IV Q8H PRN PRN NAUSEA/VOMITING Pantoprazole Sodium 40 mg 01/09/25 10:00 Pantoprazole Sodium 40 Mg Tablet PO DAILY [facility] Prochlorperazine Edisylate 5 mg 01/08/25 20:32 Prochlorperazine 10 Mg/2 Ml Vial IV Q4H PRN PRN Breakthrough Nausea/Vomiting Quetiapine Fumarate 200 mg 01/08/25 22:00 01/08/25 21:51 Quetiapine 100 Mg Tablet PO 200 mg BID [facility] Administration Protocol Senna/Docusate Sodium 2 tablet [...] 76.0 H, Lymph % (Auto) 15.8 L, [place] % (Auto) 6.6, Eos % (Auto) 1.3, [...] Sl. Cloudy, Urine pH 6.0, Ur Specific [place] 1.020,Urine Protein 30 H, Urine Glucose (UA) [...] untl 2nd pressor needed Jovani Wynn MD [facility] Critical Care 65 minTime: The entirety of this encounter was done via Telemedicine 01/09/25 0155 <Electronically signed by Jovani Wynn MD> Cosigner Signature (if applicable): CC: Dr. Homer Bradford MD~ Signed [facility] Work Phone: 1(830) 211-593606-25-2025 History and physical note Author Lauren Vela [facility] Note Date/Time January 08, 2025 11:2 8pm [facility] Medical Records Department [address] [place] [address] H&P Exam - Hospitalist 01/08/251913 MR#: [id number] Acct: [id number] Name: PERNELL RODRIGUEZ Rep #:[id number] : 1960 64 From: Lauren Vela MD PCP: Dr. Homer Bradford MD Status:ADM IN Location: ICU ICU09-1 HPI - General General Date of Admission: [...] of altered mental status found at the [facility] where she has been living secondary [...] 750 mg IV x1 given allergy history. [facility] Medical History Urinary tract infection History of [...] 76.0 H, Lymph % (Auto) 15.8 L, [place] % (Auto) 6.6, Eos % (Auto) 1.3, [...] Sl. Cloudy, Urine pH 6.0, Ur Specific [place] 1.020,Urine Protein 30 H, Urine Glucose (UA) [...] acute intracranial abnormality. Senescent changes. Reading Location: [id number] Chest X-Ray 01/08/25 17:00 IMPRESSION: Slightly limited exam, without definite evidence of an acute cardiopulmonary abnormality. Reading Location: [id number] Assessment & Plan Assessment/Plan (1) Sepsis: (2) Complicated urinary tract infection: PLAN: Plan The patient is a 64 y/o F w/ PMHx: Morbidly obese, HTN, HLD, CKD stage III unclear subtype, Hx TIA, Anxiety and Depression/bipolar disorder, PAF, GERD, Tobacco use, Chronic COPD/asthma who presents to the [facility] ED on 01/08/25 with history of altered mental status found at the [facility] where she has been living secondary [...] to Levaquin at that time, will consult production operations engineer per protocol, will monitor I/Os, lactic acidosis [...] PPI. #12. Homelessness: Complicates presentation, patient without skilled nursing at discharge aside from possibly [facility] [...] Patient does not have healthcare power of deputy prosecuting attorney or living will in place and is uncertain of who she would name at this point. Discussed CODE status at length including difference between FULL code, DNR-CCA and DNR-CCstatus. Following discussions about the differences in these status, requested Full Code status. Advanced Care Planning Face to Face Time: 16 minutes. Charges/Coding Visit Charges Inpatient E&M: 44619 Init Hosp L3 Procedures Hospitalists Procedures: 64962 Advncd Care Plan 30 Min 01/08/258 <Electronically signed by Lauren Vela MD> Cosigner Signature (if applicable): CC: Dr. Lauren Vela MD; Dr. Homer Bradford MD~ Signed [facility] Work Phone: 1([phone]) 200-391106-24-2025 Discharge summary Author Issa Chapin [facility] Note Date/Time January 08, 2025 7:37 pm [facility] Medical Records Department [address] [place] [address] Emergency Department Summary 01/08/25 MR#: [id number] Acct: [id number] Name: PERNELL RODRIGUEZ CHEKO Rep #:[id number] : 1960 64 From: Issa Chapin MD PCP: Dr. Homer Bradford MD Status:ADM IN Location: ICU ICU09-1 HPI History of Present Illness Chief Complaint: Alt LOC Detail of Chief Complaint: Altered mental status, [place] Informant: EMS Onset/Context/Timing Onset: - (Patient with altered mental status. Lives at the [facility]) Quality: Altered mental status, tachycardia, febrile and [...] atrial fibrillation. EKG that was transmitted from [place] revealed a rate of 154 which raise concern for possible ability of atrial for flutter. EKG in the department shows a narrow complex tachycardia that I believe is sinus mechanism. QT is prolonged. There is nonseptic changes noted as well. [facility] Medical History Urinary tract infection History [...] today's lab results to lab results from [facility] Prior ED visit and Prior [...] 76.0 H Lymph % (Auto) 15.8 L [place] % (Auto) 6.6 Eos % (Auto) 1.3 [...] Sl. Cloudy Urine pH 6.0 Ur Specific [place] 1.020 Urine Protein 30 H Urine Glucose [...] acute intracranial abnormality. Senescent changes. Reading Location: [id number] Chest X-Ray 01/08/25 17:00 IMPRESSION: Slightly limited exam, without definite evidence of an acute cardiopulmonary abnormality. Reading Location: [id number] CT of the head was reviewed by [...] lactic, Elevated temperature, Sinus tachycardia seen on traffic monitor specialist, Acifc-tk-eaxapvk kidney injury, Acutehypoxemic respiratory failure, History of COPD, Complicated urinary tract infection, Sepsis Primary Care Provider: Homer Bradford What to do if you have Problems For any increased pain, shortness of breath, bleeding, nausea or vomiting, chestpain, or any unexpected problems, contact your Primary Care Provider. Call [facility] ([phone]) or report to the closest Emergency Room. Call 911 if necessary. 01/08/251936 <Electronically signed by Issa Chapin MD> Cosigner Signature (if applicable): CC: Dr. Homer Bradford MD ~ Signed [facility] Work Phone: 1(469) 835-890106-24-2025 Evaluation note* Diagnosis Onset Date Resolution Status Admit Date Acidosis, lactic acute December 7:23pm Acute alteration in mental status acute January 08, 2025 7:23pm Acute dehydration acute January 082024 7:23pm Elevated temperature acute January 08, 2025 7:23pm Sinus tachycardia seen on traffic monitor specialist acute January 08, 2025 7:23pm Tvsfy-ke-zebvzlg kidney injury chronic January 08, 2025 7:23pm [...] tract infection acute A ugust 2024 11:16am [facility] Work Phone: 1(277) 922-537106-24-2025 Radiology Diagnostic study [facility]06-24-2025 Radiology Diagnostic study [facility]06-24-2025 Discharge summary Author Issa Chapin [facility] Note Date/Time January 08, 2025 7:37 pm [facility] Medical Records Department [address] [place] [address] Emergency Department Summary 01/08/25 MR#: [id number] Acct: [id number] Name: MICHAELPERNELL CHEKO Rep #:[id number] : 1960 64 From: Issa Chapin MD PCP: Dr. Homer Bradford MD Status:ADM IN Location: ICU ICU09-1 HPI History of Present Illness Chief Complaint: Alt LOC Detail of Chief Complaint: Altered [place], [place] Informant: EMS Onset/Context/Timing Onset: - (Patient with altered mental status. Lives at the [facility]) Quality: Altered mental status, tachycardia, febrile [...] atrial fibrillation. EKG that was transmitted from [place] revealed a rate of 154 which raise concern for possible ability of atrial for flutter. EKG in the department shows a narrow complex tachycardia that I believe is sinus mechanism. QT is prolonged. There is nonseptic changes noted as well. [facility] Medical History Urinary tract infection History [...] today's lab results to lab results from [facility] Prior ED visit and Prior [...] 76.0 H Lymph % (Auto) 15.8 L [place] % (Auto) 6.6 Eos % (Auto) 1.3 [...] Sl. Cloudy Urine pH 6.0 Ur Specific [place] 1.020 Urine Protein 30 H Urine Glucose [...] evidence of pneumothorax. Independent review interpreted by vt at 1719.) Diagnostic Testing: Clinical Impression(s) from Imaging Studies Brain CT 01/08/25 16:50 IMPRESSION: Slightly limited exam, without evidence of an acute intracranial abnormality. Senescent changes. Reading Location: [id number] Chest X-Ray 01/08/25 17:00 IMPRESSION: Slightly limited exam, without definite evidence of an acute cardiopulmonary abnormality. Reading Location: [id number] CT of the head was reviewed by [...] lactic, Elevated temperature, Sinus tachycardia seen on traffic monitor specialist, Alwwn-bp-yzqfqtk kidney injury, Acutehypoxemic respiratory failure, History of COPD, Complicated urinary tract infection, Sepsis Primary Care Provider: Homer Bradford What to do if you have Problems For any increased pain, shortness of breath, bleeding, nausea or vomiting, chestpain, or any unexpected problems, contact your Primary Care Provider. Call [facility] ([phone]) or report to the closest Emergency Room. Call 911 if necessary. 01/08/251936 <Electronically signed by Issa Chapin MD> Cosigner Signature (if applicable): CC: Dr. Homer Bradford MD ~ Signed [facility] Work Phone: 1(146) 201-229106-23-2025 Telephone encounter Note* Telephone Encounter - Mary [...] Rodriguez LPN January 07, 2025 2:36 PM [facility]06-23-2025 Miscellaneous Notes* Telephone Encounter - Mary Ann [...] BY MOUTH DAILY AT BEDTIME. FOR CHOLESTEROL. MaryA nn Rodriguez LPN January 07, 2025 2:36 PM documented in this encounterTrihealth06-13-2025 Telephone encounter Note * Telephone Encounter - Jose Jarrell MA - 12/28/2024 11:53 AM EDT Attempted to reach pt, unable to reach and unable to LM. Letter being sent to pt to contact office regarding her recent lab results. Did not read [employer] message. Letter mailed to pt asking for a call back. Jose Jarrell MA [facility]06-13-2025 Miscellaneous Notes* Telephone Encounter - Jose Jarrell MA - 12/28/2024 11:53 AM EDT Attempted to reach pt, unable to reach and unable to LM. Letter being sent to pt to contact office regarding her recent lab results. Did not read [employer] message. Letter mailed to pt asking for a call back. Jose Jarrell MA * Telephone Encounter - Priyanka Chavez RN - 12/26/2024 8:35 AM EDT Attempted to contact patient. No answer and VM box is not set up. Please try contacting patient again. MyChart message with provider's response sent to patient [...] able. Priyanka Chavez RN documented in this encounterTrihealth06-11-2025 Telephone encounter Note * Telephone Encounter - Priyanka Chavez RN - 12/26/2024 8:35 AM EDT Attempted to contact patient. No answer and VM box is not set up. Please try contacting patient again. [employer] message with provider's response sent to patient as well. Priyanka Chavez RN [facility]06-10-2025 Telephone encounter Note* Telephone Encounter - Homer Bradford MD - 12/25/2024 5:31 PM EDT Let patient know A1c A1c was good at 5.9%. Her kidney functions are improved. Her lipid panel, electrolytes, B12, CBC and Mg were all ok. She needs to come in and complete her urine tests. [facility]06-10-2025 Telephone encounter Note* Telephone Encounter - Priyanka Chavez RN - 12/25/2024 2:12 PM EDT Patient requesting PCP to advise on recent lab results, when able. Priyanka Chavez RN [facility]06-03-2025 History of Present illness Narrative* Homer Bradford [...] several years or 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 Some of this is due to the fact she lost her manager case through the [facility] services who [...] few months. She was first admitted to [facility] on 09/12/2023, after returning from [place], for a blood clot and was discharged with a 30-day prescription for Eliquis. She has not followed up with her primary care physician or specialists since then and has been off Eliquis for 2-3 months. She hasnot seen her hair or beauty salon assistant, ship officer, or neurologist in the last 6 months. She has been living with a friend temporarily but does not have a permanent place to live and is technically still homeless. She has been advised to move into a intermediate facility but has refused due to negative [...] Chest pain 02/14/[address] Jacob in [facility]. Had a normal cardiac CTA in 2009 with no calcium. Chronic back pain greater than 3 months duration 04/02/2015 Chronic insomnia 03/12/2020 Ilya Calderón ([facility]) on melatonin. Chronic obstructive pulmonary disease (HCC) 04/25/2015 Chronic pain 01/14/2014 Constipation 02/12/2014 [place] or callus 11/16/2015 Current use of proton [...] 04/16/2014 Major depressive disorder, recurrent episode, moderate ([facility]) 04/25/2015 On disability Migraine without aura and without status migrainosus, not intractable 04/28/[address] Calderón Mixed hyperlipidemia 01/14/2014 Mixed incontinence urge and stress (male)(female) 07/25/2018 Morbid obesity due to excess calories ([facility]) 10/27/2016 Muscle weakness (generalized) 07/25/2018 [...] 04/25/2015 Type 2 diabetes mellitus without complication ([facility]) 04/25/2015 Urinary incontinence 07/08/2017 Well adult exam 10/27/2016 last done: 06/09/2022 Previous Surgical History PAST SURGICAL HISTORY Procedure Laterality Date *STRESS TEST PC 05/06/2016 WNL 2D ECHO (EXEP) 01/14/2014 EF=65% Trival NH, TI, PI, LA enlarged. CARPAL TUNNEL Bilateral 08/28 and 09/25 COLONOSCOPY FLX DX W/COLLJ SPEC WHEN PFRMD 2011 [facility] Colonoscopy, no polyps repeat 10 yrs CRYOCAUTERY [...] on 01/05/2024 Covid-19 Vaccine( season) Never done HbA1C due on 09/19/2024 [...] term current use of insulin (HCC) (E11.22) Stage 3b chronic kidney disease (HCC) (N18.32) Patient has not been following up with specialists, including nephrology. No recent lab work available to assess current renal function. - Referral to nephrology (Dr. St) for management of CKD. - Monitor renal function with appropriate lab tests. - check CMP, Lipid, A1c, UA, Urine Micro albumin, CBC 2. Diabetic eye exam ([facility]) (Z01.00) No recent eye exam [...] pulmonary disease, unspecified COPD type (HCC) (J44.9) Nodule of left lung (R91.1) Patient [...] with Dr. Negrete. 14. Low vitamin B12 kelly barajas (R79.89) No recent lab work available to [...] best interests to either move into a intermediate facility or assisted living facility where she [...] which included preparing to see the patient, tjnr-eu-nvwy patient care, completing clinical documentation, performing a medically appropriateexamination, counseling and educating the patient/family/caregiver and ordering medications, tests,or procedures. Recording using [employer] software for draft documentation of the visit was discussed with the patient/authorized ambulatory services representative; all questions welcomed and answered. Patient/authorized ambulatory services representative agreed to proceed documented in this encounterTrihealth06-03-2025 NoteHNO ID: [id number] Author: HOMER BRADFORD MD Service: ? Author [...] several years or 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 Some of this is due to the fact she lost her manager case through the [facility] services who [...] few months. She was first admitted to [facility] on 09/12/2023, after returning from [place], for a blood clot and was discharged with a 30-day prescription for Eliquis. She has not followed up with her primary care physician or specialists since then and has been off Eliquis for 2-3 months. She has not seen her hair or beauty salon assistant, ship officer, or neurologist in the last 6 months. She has been living with a friend temporarily but does not have a permanent place to live and is technically still homeless. She has been advised to move into a intermediate facility but has refused due to negative [...] Chest pain 02/14/[address] Jacob in [facility]. Had a normal cardiac CTA in 2009 with no calcium. Chronic back pain greater than 3 months duration 04/02/2015 Chronic insomnia 03/12/2020 Ilya Calderón ([facility]) on melatonin. Chronic obstructive pulmonary disease (HCC) 04/25/2015 Chronic pain 01/14/2014 Constipation 02/12/2014 [place] or callus 11/16/2015 Current use of proton [...] B12 level 07/16/2022 Lumbosacr (more content not included)...[facility]05-27-2025 Telephone encounter Note* Telephone Encounter - Brianne Graves RN - 12/11/2024 1:56 PM EDT Pt calling in to check on status of order. Let her know order was faxed this morning. Pt states shewill since order has been sent. [facility]05-27-2025 Miscellaneous Notes* Telephone Encounter - Brianne Graves [...] ups) faxed to [facility] at [phone]. Patient reports that the full size briefs are bulky and causing too much skin irritation. Patient has an appointment on 12/11/2024 but reports she needs pull ups ordered today. Please review and advise, Shanti Monreal RN documented in this encounterTrihealth05-27-2025 Telephone encounter Note * Telephone Encounter - Rajani Granger MA - 12/11/2024 11:32 AM EDT Attempted to contact patient to let her know order for pull ups has been faxed. Faxed order. Rajani Granger MA [facility]05-27-2025 Telephone encounter Note* Telephone Encounter - Homer Bradford MD - 12/11/2024 11:03 AM EDT Order ready to be faxed. [facility]05-27-2025 Telephone encounter Note* Telephone Encounter - Rajani Granger MA - 12/11/2024 9:44 AM EDT Spoke with patient today and she will be out soon. Please file order. Rajani Granger MA [facility]05-23-2025 Telephone encounter Note* Telephone Encounter - Shanti Monreal RN - 12/07/2024 4:12 PM EDT She is asking for the XXL. Shanti Monreal, RN [facility]05-23-2025 Telephone encounter Note* Telephone Encounter - Homer Bradford MD - 12/07/2024 3:59 PM EDT So patient's past scripts have been for size XXL. Is she wanting just XL [facility]05-23-2025 Telephone encounter Note* Telephone Encounter - Shanti Monreal RN - 12/07/2024 2:43 PM EDT Pernell calls to report that she needs an order for incontinence supplies (2 XL pull ups) faxed to [facility] at [phone]. Patient reports that the full size briefs are bulky and causing too much skin irritation. Patient has an appointment on 12/11/2024 but reports she needs pull ups ordered today. Please review and advise, Shanit Monreal RN [facility]05-15-2025 NoteHNO ID: [id number] Author: RAJANI GRANGER MA Service: ? Author Type: It Systems Administrator Type: Progress Notes Filed: 11/29/2024 09:36 Note Text: Scan on 11/14/2024 1:05 PM by ProviderGita PA-C: Consultation - Emergency Medicine Rajani Granger [facility]05-15-2025 History of Present illness Narrative* Rajani Granger MA - 11/29/2024 9:36 AM EDT Scan on 11/14/2024 1:05 PM by ProviderGita PA-C: Consultation - Emergency Medicine Rajani Granger MA documented in this encounterTrihealth04-29-2025 History of Present illness Narrative* Rajani Granger MA - 11/13/2024 11:37 AM EDT Scan on 11/12/2024 5:37 AM by ProviderGita PA-C: Consultation - Emergency Medicine We do not currently have a working number for the patient to schedule a hospital Follow up. Patientin hospital from 11/04 - 11/07. She is currently homeless. Rajani Granger MA documented in this encounterTrihealth04-29-2025 NoteHNO ID: [id number] Author: RAJANI GRANGER MA Service: ? Author Type: It Systems Administrator Type: Progress Notes Filed: 11/13/2024 11:41 Note Text: Scan on 11/12/2024 5:37 AM by Gita Curtis PA-C: Consultation - Emergency Medicine We do not currently have a working number for the patient to schedule a hospital Follow up. Patient in hospital from 11/04 - 11/07. She is currently homeless. Rajanisterling Granger, [facility]04-25-2025 NoteHNO ID: [id number] Author: CAROL ARMENTA MA Service: ? Author Type: It Systems Administrator Type: Progress Notes Filed: 11/11/2024 16:13 Note Text: Pt discharged from [facility] Scan on 11/08/2024 8:56 AM by Gita Curtis PA-C: [facility]04-23-2025 [facility]04-21-2025 NoteHNO ID: [id number] Author: ASPEN BELL LPN Service: ? Author Type: LICENSED NURSE Type: Progress Notes Filed: 11/05/2024 08:17 Note Text: Scan on 11/04/2024 3:26 PM by Gita Curtis PA-C: Consultation - Emergency Medicine Scan on 11/04/2024 3:10 PM [facility] History of Present illness Narrative* Aspen Bell LPN - 11/05/2024 7:52 AM EDT Scan on 11/04/2024 3:26 PM by Gita Curtis PA-C: Consultation - Emergency Medicine Scan on 11/04/2024 3:10 PM by Gita Curtis PA-C documented in this encounterTrihealth04-20-2025 Evaluation note* Diagnosis Onset Date Resolution Status Admit Date Urinary tract infection inactive A pril 2024 2:30pm Acidosis, lactic acute December 7:23pm Acute alteration in mental status acute January 08, 2025 7:23pm Acute dehydration acute January 082024 7:23pm Elevated temperature acute January 08, 2025 7:23pm Sinus tachycardia seen on traffic monitor specialist acute January 08, 2025 7:23pm Rhcmo-ju-yiqtgqw kidney injury chron ic January 08, 2025 [...] 2025 9:56am Dyspnea chronic January 31 12:32pm [facility] Work Phone: 1(892) 378-810204-20-2025 Evaluation note* Diagnosis Onset Date Resolution Status Admit Date Urinary tract infection inactive A pril 2024 2:30pm Acidosis, lactic acute December 7:23pm Acute alteration in mental status acute January 08, 2025 7:23pm Acute dehydration acute January 082024 7:23pm Elevated temperature acute January 08, 2025 7:23pm Sinus tachycardia seen on traffic monitor specialist acute January 08, 2025 7:23pm Rqutm-jy-uofzcog kidney injury chronic January 08, 2025 7:23pm [...] tract infection noneactive A ugust 2024 1:59pm [facility] Work Phone: 1(300) 186-723304-20-2025 Discharge summary [facility] Medical Records Department [address] [place] [address] Emergency Department Summary 11/04/24 MR#: [id number] Acct: [id number] Name: PERNELL RODRIGUEZ Rep #:[id number] : 1960 64 From: Rebecca MAY [...] PMH of COPD, CKD, T2DM, bipolar disorder. [facility] Medical History History of echocardiogram Wears [...] her daughter. She wants to go the [employer] [place]. She believes her daughter will come by [...] (Auto) 70.2 H Lymph % (Auto) 19.2 [place] % (Auto) 7.3 Eos % (Auto) 2.9 [...] Sl. Cloudy Urine pH 5.0 Ur Specific [place] 1.020 Urine Protein 15 H Urine Glucose [...] her daughter. She wants to go the [employer] [place]. She believes her daughter will come by [...] (Auto) 70.2 H Lymph % (Auto) 19.2 [place] % (Auto) 7.3 Eos % (Auto) 2.9 [...] Sl. Cloudy Urine pH 5.0 Ur Specific [place] 1.020 Urine Protein 15 H Urine Glucose [...] mellitus, Acute hyperglycemia Disposition Disposition: Acute Care [facility] What to do if you have Problems For any increased pain, shortness of breath, bleeding, nausea or vomiting, chest pain, or any unexpected problems, contact your Primary Care Provider. Call [facility] ([phone]) or report to the closest Emergency Room. Call 911 if necessary. 11/04/24 1504 Cosigner Signature (if applicable): 11/04/24 1515 CC: Dr. Homer Bradford MD ~ Signed [facility]04-20-2025 History and physical note [facility] Medical Records Department [address] [place] [address] H&P Exam - Hospitalist 11/04/24 1429 MR#: [id number] Acct: [id number] Name: PERNELL RODRIGUEZ Rep #:[id number] : 1960 64 From: Lauren Vela [...] GERD who presents to the [facility] ED on 11/04/2024 with history of [...] 15, occult blood 50, positive nitrate, leukocyte [id number] with urine WBCs 25-50 with 3+ urine bacteria, urine culture pending per ED, blood culture pending per ED. From review of cultures very remotely in 2018 patient had an E. coli greater rmgh625,000 culture which was pansensitive and in 2014 [...] Sl. Cloudy, Urine pH 5.0, Ur Specific [place] 1.020, Urine Protein 15 H, Urine Glucose [...] (Auto) 70.2 H, Lymph % (Auto) 19.2, [place] % (Auto) 7.3, Eos % (Auto) 2.9, Baso % (Auto) 0.2, Absolute Neuts (auto) 6.9, Absolute Lymphs (auto) 1.90, Nucleated RBC % 0, Sodium 142, Potassium 3.7, Uhtzenzw158, Carbon Dioxide 26.2, Anion Gap 11, BUN [...] GERD who presents to the [facility] ED on 11/04/2024 with history of [...] readmission, not clinically appropriate for consideration for skilled nursing. #13. DVT prophylaxis: Will continue patient home Eliquis regimen. #14. CODE status: Patient does not have healthcare power of deputy prosecuting attorney or living will in place but she [...] 16 minutes. Charges/Coding Visit Charges Inpatient E&M: 29723 Init Hosp L3 Procedures Hospitalists Procedures: 97158 Advncd Care Plan 30 Min 11/04/24 1500 Cosigner Signature (if applicable): CC: Dr. Lauren Vela MD; Dr. Homer Bradford MD~ Signed [facility]04-20-2025 Discharge summary Author Rebecca De Santiago [facility] Note Date/Time November 04, 2024 3:1 5pm [facility] Medical Records Department [address] [place] [address] Emergency Department Summary 11/04/24 MR#: [id number] Acct: [id number] Name: PERNELL RODRIGUEZ Rep #:[id number] : 1960 64 From: Rebecca MAY [...] PMH of COPD, CKD, T2DM, bipolar disorder. [facility] <YADIRA Rajan - Last Filed: 11/04/24 15:04> [facility] Medical History History of echocardiogram Wears [...] responsive hypotension (Patient responded to 1 L.) [facility] <YADIRA Rajan - Last Filed: 11/04/24 15:04> [facility] Narrative Medical decision making narrative: Patient [...] her daughter. She wants to go the [employer] [place]. She believes her daughter will come by [...] (Auto) 70.2 H Lymph % (Auto) 19.2 [place] % (Auto) 7.3 Eos % (Auto) 2.9 [...] Sl. Cloudy Urine pH 5.0 Ur Specific [place] 1.020 Urine Protein 15 H Urine Glucose (UA) Normal Urine Ketones Negative Urine Occult Blood 50 H Urine Nitrite Positive H Urine Bilirubin Negative Urine Urobilinogen 1 H Ur Leukocyte Esterase 500 H Urine RBC 0 SEEN Urine WBC 25-50 SEEN Ur Squamous Epith Cells 0 SEEN Urine Bacteria 3+ Urine Mucus 0 SEEN <Dr. Issa Chapin MD - Last Filed: 11/04/24 15:15> [facility] MDM Narrative Medical decision making narrative: I [...] her daughter. She wants to go the [employer] [place]. She believes her daughter will come by [...] (Auto) 70.2 H Lymph % (Auto) 19.2 [place] % (Auto) 7.3 Eos % (Auto) 2.9 [...] Sl. Cloudy Urine pH 5.0 Ur Specific [place] 1.020 Urine Protein 15 H Urine Glucose [...] your Primary Care Provider. Call [facility] ([phone]) or report to the closest Emergency Room. Call 911 if necessary. 11/04/24 1504 <Electronically signed by Rebecca MAY> Cosigner Signature (if applicable): 11/04/24 1515 <Electronically signed by Issa Chapin MD> CC: Dr. Homer Bradford MD ~ Signed [facility] Work Phone: 1(180) 785-179004-09-2025 NoteHNO ID: [id number] Author: HOMER BRADFORD MD Service: ? Author [...] and reducing skin break down Homer Bradford, [facility]03-07-2025 Discharge summary Author Marco Jones [facility] Note Date/Time September 21, 2024 2:20 pm [facility] Medical Records Department [address] [place] [address] Discharge Summary 09/21/24 1228 MR#: [id number] Acct: [id number] Name: PERNELL RODRIGUEZ Rep #:[id number] : 1960 64 From: Marco Jones MD PCP: Dr. Homer Bradford MD Status:ADM IN [facility] Prov[facility] Date of Admission: 09/12/24 Date [...] medication and is now being discharged to [facility]. Physical Exam Const alert, oriented x3 [...] Dennys Ryan; Lori Jacobs; Elisabeth Yung; Jovanny García Yanick; Frank Yusuf; Ariella Morrison; Sandor Zaldivar; Flores Pruitt; Martha Irene;Wilrfedo Denton; Guevara Collins Discharge Orders/Prescriptions Prescriptions: New [...] Dr. Homer Bradford MD~ Signed [facility] Work Phone: 1(262) 902-286703-07-2025 Discharge summary [facility] Medical Records Department [address] [place] [address] Discharge Summary 09/21/24 1228 MR#: [id number] Acct: [id number] Name: PERNELL RODRIGUEZ Rep #:[id number] 7 : 1960 64 From: Marco Jones MD PCP: Dr. Homer Bradford MD Status:ADM IN Location: [place] [id number]- [id number] Providers Date of Admission: 09/12/24 Date of Discharge: 09/21/24 Primary Care Physician: Dr. Homer Bradford MD Consultations 09/12/24 16:02 Consult: Tele-Neurology Routine Consulting Provider: [facility] Reason for Consult: Acute Ischemic Stroke/TIA EMERGENT Consult: Francoise GUSTAFSON Notified: Yes Date Notified: 09/12/24 Time Notified: [...] Dennys Ryan; Lori Jacobs; Elisabeth Yung; Jovanny García Yanick; Frank Yusuf; Ariella Morrison; Sandor Zaldivar; Flores [...] Dr. Homer Bradford MD~ Signed [facility]03-07-2025 [facility] Progress note [facility] Note Date/Time September 20, 2024 11:5 8am [facility] Medical Records Department [address] [facility] [place] [address] Progress Note - Hospitalist 09/20/24 1155 MR#: [id number] Acct: [id number] Name: MICHAELPERNELL CHEKO Rep #:[id number] 3 : 1960 64 From: Marco Jones MD PCP: Dr. Homer Bradford MD Status:ADM IN Location: [place] [address] Reason for Visit Reason for Visit: Diagnoses Cerebral infarction, unspecified (09/12/24) COVID-19 (09/12/24) Subjective Subjective Overall doing well, no active symptoms Would like to get discharged along with a ride to [employer] to meet her brother if possible. Upon [...] presently waiting bed placement to a homeless skilled nursing. 1. TIA ? MRI is negative ? [...] with PPI Charges/Coding Visit Charges Inpatient E&M: 57791 Subs Hosp L1 09/20/24 1158 <Electronically signed by Marco Jones MD> Cosigner Signature (if applicable): CC: ~ Signed [facility] Work Phone: 1(899) 151-129703-06-2025 Progress note [facility] Medical Records Department [address] [place] [address] Progress Note - Hospitalist 09/20/24 1155 MR#: [id number] Acct: [id number] Name: PERNELL RODRIGUEZ Rep #:[id number] 3 : 1960 64 From: Marco Jones MD PCP: Dr. Homer Bradford MD Status:ADM IN Location: [place] [id number]- 1 Reason for Visit Reason for Visit: Diagnoses Cerebral infarction, unspecified (09/12/24) COVID-19 (09/12/24) Subjective Subjective Overall doing well, no active symptoms Would like to get discharged along with a ride to [place] to meet her brother if possible. Uponcase [...] presently waiting bed placement to a homeless skilled nursing. 1. TIA ? MRI is negative ? [...] with PPI Charges/Coding Visit Charges Inpatient E&M: 34046 Subs Hosp L1 09/20/24 1158 Cosigner Signature (if applicable): CC: ~ Signed [facility]03-05-2025 Progress note Author Marco Jones [facility] Note Date/Time September 19, 2024 1:16 pm [facility] Medical Records Department [address] [place] [address] Progress Note - Hospitalist 09/19/24 1313 MR#: [id number] Acct: [id number] Name: PERNELL RODRIGUEZ Rep #:[id number] 6 : 1960 64 From: Marco Jones MD PCP: Dr. Homer Bradford MD Status:ADM IN Location: [place] [address] Reason for Visit Reason for Visit: Diagnoses Cerebral infarction, unspecified (09/12/24) COVID-19 (09/12/24) Subjective Subjective Mild headaches, easily awaiting transfer to [facility] Objective Data Objective Data Vital Signs: Vital [...] 80.7 H, Lymph % (Auto) 11.7 L, [place] % (Auto) 6.4, Eos % (Auto) 0.0, [...] to assist. Anticipate the patient may require intermediate facility when she is medically ready for discharge. Recent psychiatric hospitalization for roughly 20 days in [facility]. Continue with Seroquel and Ativan DVT: Eliquis Charges/Coding Visit Charges Inpatient E&M: 46742 Init Hosp L1 09/19/24 1316 <Electronically signed by Marco Jones MD> Cosigner Signature (if applicable): CC: ~ Signed [facility] Work Phone: 1(965) 276-359803-05-2025 Progress note [facility] Medical Records Department [address] [place] [address] Progress Note - Hospitalist 09/19/24 1313 MR#: [id number] Acct: [id number] Name: PERNELL RODRIGUEZ Rep #:[id number] 6 : 1960 64 From: Marco Jones MD PCP: Dr. Homer Bradford MD Status:ADM IN Location: [place] [address] Reason for Visit Reason for Visit: Diagnoses [...] 80.7 H, Lymph % (Auto) 11.7 L, [place] % (Auto) 6.4, Eos % (Auto) 0.0, [...] to assist. Anticipate the patient may require intermediate facility when she is medically ready for discharge. Recent psychiatric hospitalization for roughly 20 days in [facility]. Continue with Seroquel and Ativan DVT: Eliquis Charges/Coding Visit Charges Inpatient E&M: 80788 Init Hosp L1 09/19/24 1316 Cosigner Signature (if applicable): CC: ~ Signed [facility]03-04-2025 Progress note Author Guevara Collins [facility] Note Date/Time September 18, 2024 10:5 7am [facility] Medical Records Department [address] [place] [address] Progress Note - Hospitalist 09/18/24 1055 MR#: [id number] Acct: [id number] Name: PERNELL RODRIGUEZ Rep #:[id number] 1 : 1960 64 From: Guevara dyer MD PCP: Dr. Homer Bradford MD Status:ADM IN Location: [place] [address] Subjective Subjective No issues overnight, continue to [...] Potassium 3.9, Chloride Direct 109 H, Carbon Lbjuwhg39.1 L, Anion Gap 10, BUN 14, Creatinine [...] (Auto) 79.6 H, Lymph % (Auto) 13.2 L,[place] % (Auto) 6.6, Eos % (Auto) 0.0, [...] to assist. Anticipate the patient may require intermediate facility when she is medically ready for discharge. Recent psychiatric hospitalization for roughly 20 days in [facility]. Continue with Seroquel and Ativan DVT: Eliquis Charges/Coding Visit Charges Inpatient E&M: 97632 Subs Hosp L1 09/18/24 1057 <Electronically signed by Guevara Collins MD> Cosigner Signature (if applicable): CC: ~ Signed [facility] Work Phone: 1(514) 325-976303-04-2025 Progress note [facility] Medical Records Department [address] [place] [address] Progress Note - Hospitalist 09/18/24 1055 MR#: [id number] Acct: [id number] Name: PERNELL RODRIGUEZ Rep #:[id number] 1 : 1960 64 From: Guevara dyer MD PCP: Dr. Homer Bradford MD Status:ADM IN Location: [place] [address] Subjective Subjective No issues overnight, continue to [...] Potassium 3.9, Chloride Direct 109 H, Carbon Yloldhe77.1 L, Anion Gap 10, BUN 14, Creatinine [...] %(Auto) 79.6 H, Lymph % (Auto) 13.2 L,[place] % (Auto) 6.6, Eos % (Auto) 0.0, [...] to assist. Anticipate the patient may require intermediate facility when she is medically ready for discharge. Recent psychiatric hospitalization for roughly 20 days in [facility]. Continue with Seroquel and Ativan DVT: Eliquis Charges/Coding Visit Charges Inpatient E&M: 59726 Subs Hosp L1 09/18/24 1057 Cosigner Signature (if applicable): CC: ~ Signed [facility]03-03-2025 Progress note Author Guevara Collins [facility] Note Date/Time September 17, 2024 10:3 6am [facility] Medical Records Department [address] [place] [address] Progress Note - Hospitalist 09/17/24 1034 MR#: [id number] Acct: [id number] Name: PERNELL RODRIGUEZ Rep #:[id number] 3 : 1960 64 From: Guevara dyer MD PCP: Dr. Homer Bradford MD Status:[facility] Subjective Subjective No issues overnight, awaiting placement [...] to assist. Anticipate the patient may require intermediate facility when she is medically ready for discharge. Recent psychiatric hospitalization for roughly 20 days in [facility]. Continue with Seroquel and Ativan DVT: Eliquis Charges/Coding Visit Charges Inpatient E&M: 79653 Subs Hosp L2 09/17/24 1036 <Electronically signed by Guevara Collins MD> Cosigner Signature (if applicable): CC: ~ Signed [facility] Work Phone: 1(158) 486-373703-03-2025 Progress note [facility] Medical Records Department [address] [place] [address] Progress Note - Hospitalist 09/17/24 1034 MR#: [id number] Acct: [id number] Name: PERNELL RODRIGUEZ Rep #:[id number] 3 : 1960 64 From: Guevara dyer MD PCP: Dr. Homer Bradford MD Status:ADM IN Location: [place] [address] Subjective Subjective No issues overnight, awaiting placement [...] to assist. Anticipate the patient may require intermediate facility when she is medically ready for discharge. Recent psychiatric hospitalization for roughly 20 days in [facility]. Continue with Seroquel and Ativan DVT: Eliquis Charges/Coding Visit Charges Inpatient E&M: 76951 Subs Hosp L2 09/17/24 1036 Cosigner Signature (if applicable): CC: ~ Signed [facility]03-03-2025 NoteHNO ID: [id number] Author: ASPEN BELL LPN Service: ? Author Type: LICENSED NURSE Type: Progress Notes Filed: 09/17/2024 08:01 Note Text: Scan on 09/14/2024 3:40 PM by ProviderGita PA-C: Consultation - Neurology [facility]03-03-2025 History of Present illness Narrative* Aspen Bell LPN - 09/17/2024 8:00 AM EST Scan on 09/14/2024 3:40 PM by Provider, ANTONI Pelayo: Consultation - [facility] Progress note Author Guevara Colilns [facility] Note Date/Time September 16, 2024 9:26 am [facility] Medical Records Department [address] [place] [address] Progress Note - Hospitalist 09/16/24924 MR#: [id number] Acct: [id number] Name: PERNELL RODRIGUEZ CHEKO Rep #:[id number] 9 : 1960 64 From: Guevara dyer MD PCP: Dr. Homer Bradford MD Status:ADM IN Location: [place] [address] Subjective Subjective No issues overnight, maintaining oxygen [...] 81.1 H, Lymph % (Auto) 11.4 L, [place] % (Auto) 7.1, Eos % (Auto) 0.0, [...] to assist. Anticipate the patient may require intermediate facility when she is medically ready for discharge. Recent psychiatric hospitalization for roughly 20 days in [facility]. Continue with Seroquel and Ativan DVT: Eliquis Charges/Coding Visit Charges Inpatient E&M: 72267 Subs Hosp L2 09/16/24925 <Electronically signed by Guevara Collins MD> Cosigner Signature (if applicable): CC: ~ Signed [facility] Work Phone: 1(765) 565-133003-02-2025 Progress note Author Guevara Collins [facility] Note Date/Time September 16, 2024 9:24 am [facility] Medical Records Department [address] [place] [address] Progress Note - Hospitalist 09/16/24923 MR#: [id number] Acct: [id number] Name: PERNELL RODRIGUEZ Rep #:[id number] 8 : 1960 64 From: Guevara dyer MD PCP: Dr. Homer Bradford MD Status:ADM IN Location: [place] [address] 1 Reason for Visit Reason for Visit: [...] 81.1 H, Lymph % (Auto) 11.4 L, [place] % (Auto) 7.1, Eos % (Auto) 0.0, [...] (if applicable): CC: ~ Signed [facility] Work Phone: 1(840) 271-319403-02-2025 Progress note [facility] Medical Records Department [address] [place] [address] Progress Note - Hospitalist 09/16/24924 MR#: [id number] Acct: [id number] Name: PERNELL RODRIGUEZ Rep #:[id number] 9 : 1960 64 From: Guevara dyer MD PCP: Dr. Homer Bradford MD Status:ADM IN Location: [place] [address] Subjective Subjective No issues overnight, maintaining oxygen [...] 81.1 H, Lymph % (Auto) 11.4 L, [place] % (Auto) 7.1, Eos % (Auto) 0.0, [...] to assist. Anticipate the patient may require intermediate facility when she is medically ready for discharge. Recent psychiatric hospitalization for roughly 20 days in [facility]. Continue with Seroquel and Ativan DVT: Eliquis Charges/Coding Visit Charges Inpatient E&M: 58843 Subs Hosp L2 09/16/24 0926 Cosigner Signature (if applicable): CC: ~ Signed [facility]03-02-2025 Progress note [facility] Medical Records Department [address] [place] [address] Progress Note - Hospitalist 09/16/24923 MR#: [id number] Acct: [id number] Name: PERNELL RODRIGUEZ Rep #:[id number] 8 : 1960 64 From: Guevara dyer MD PCP: Dr. Homer Bradford MD Status:ADM IN Location: [place] [address] Reason for Visit Reason for Visit: Diagnoses [...] 81.1 H, Lymph % (Auto) 11.4 L, [place] % (Auto) 7.1, Eos % (Auto) 0.0, [...] (if applicable): CC: ~ Signed [facility]03-01-2025 Progress note Author Guevara Collins [facility] Note Date/Time September 15, 2024 9:22 am [facility] Medical Records Department [address] [place] [address] Progress Note - Hospitalist 09/15/24920 MR#: [id number] Acct: [id number] Name: PERNELL RODRIGUEZ Rep #:[id number] 5 : 1960 64 From: Guevara dyer MD PCP: Dr. Homer Bradford MD Status:ADM IN Location: [place] [address] Subjective Subjective Doing well, no issues overnight. [...] to assist. Anticipate the patient may require intermediate facility when she is medically ready for discharge. Recent psychiatric hospitalization for roughly 20 days in [facility]. Continue with Seroquel and Ativan DVT: Eliquis Charges/Coding Visit Charges Inpatient E&M: 77930 Subs Hosp L2 09/15/24921 <Electronically signed by Guevara Collins MD> Cosigner Signature (if applicable): CC: ~ Signed [facility] Work Phone: 1(639) 847-458003-01-2025 Progress note [facility] Medical Records Department [address] [place] [address] Progress Note - Hospitalist 09/15/24 09 MR#: [id number] Acct: [id number] Name: PERNELL RODRIGUEZ Rep #:[id number] 5 : 1960 64 From: Guevara dyer MD PCP: Dr. Homer Bradford MD Status:ADM IN Location: [place] [address] Subjective Subjective Doing well, no issues overnight. [...] to assist. Anticipate the patient may require intermediate facility when she is medically ready for discharge. Recent psychiatric hospitalization for roughly 20 days in [facility]. Continue with Seroquel and Ativan DVT: Eliquis Charges/Coding Visit Charges Inpatient E&M: 77208 Subs Hosp L2 09/15/24 0922 Cosigner Signature (if applicable): CC: ~ Signed [facility]02-28-2025 Progress note Author Guevara Collins [facility] Note Date/Time September 14, 2024 3:49pm [facility] Medical Records Department [address] [place] [address] Progress Note - Hospitalist 09/14/24 1546 MR#: [id number] Acct: [id number] Name: PERNELL RODRIGUEZ CHEKO Rep #:[id number] 1 : 1960 64 From: Guevara dyer MD PCP: Dr. Homer Bradford MD Status:ADM IN Location: [place] [address] Subjective Subjective Doing well, no issues overnight. [...] to assist. Anticipate the patient may require intermediate facility when she is medically ready for discharge. Recent psychiatric hospitalization for roughly 20 days in [facility]. Continue with Seroquel and Ativan DVT: Eliquis Charges/Coding Visit Charges Inpatient E&M: 73691 Subs Hosp L2 09/14/24 1548 <Electronically signed by Guevara Collins MD> Cosigner Signature (if applicable): CC: ~ Signed [facility] Work Phone: 1(637) 133-845002-28-2025 Consult note Author Long Marilou [facility] Note Date/Time September 14, 2024 3:22pm [facility] Medical Records Department [address] [place] [address] Consultation - Neurology 09/13/24 1413 MR#: [id number] Acct: [id number] Name: PERNELL RODRIGUEZ CHEKO Rep #:[id number] 6 : 1960 64 From: Long Arthur PCP: Dr. Homer Bradford MD Status:ADM IN Location: [place] [id number]- 1 Assessment and Plan: Neuro Assessment/Plan 64 y/o woman with h/o Afib on AC, recent admission to psych facility for concernfor blood clot p/w difficult speaking. In ER, noted to be COVID positive. CT Head - concern for left BG stroke. CTA - shows no LVO but shows lymphadenopathy.MRI brain- no acute stroke. LDL-84. A1c-5.4. DHA-ZW-71-65%. Today, she reports feeling better with NIHSS-0. 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 I personally [...] lymphadenopathy.MRI brain- no acute stroke. LDL-84. A1c-5.4. IOH-ML-90-65%. Today, she reports feeling better with NIHSS-0. [...] or with change in RN caregiver Freq: [id number] Protocol: Activity Type Activity Date Activity User E-sign Co-sign Detail Recorded Client Recorded Date Recorded By Document 09/12/24 17:30 SHANIKA [id number] 09/12/24 17:32 SHANIKA 09/12/24 17:30 NIH Stroke [...] and with change in RN caregiver. Freq: [id number] Protocol: Activity Type Activity Date Activity User E-sign Co-sign Detail Recorded Client Recorded Date Recorded By Document 09/13/24 04:00 DOREEN [id number] 09/13/24 04:05 DOREEN 09/13/24 04:00 NIH Stroke [...] 79.9 H, Lymph % (Auto) 10.0 L, [place] % (Auto) 9.5, Eos % (Auto) 0.0, [...] the right posterior cerebral artery. [facility] Neck MRA 09/12/24 15:01 IMPRESSION: Suboptimal examination [...] arteries appear to be patent. Reading Location: [facility] Brain MRI 09/12/24 16:02 IMPRESSION: No [...] as above. Partially empty sella. Reading Location: [facility] Active Medications Active Medications Active Medications: Current Medications Generic Name Dose Route Start Last Admin Trade Name Freq PRN Reason Stop Dose Admin Acetaminophen 650 mg 09/12/24 16:02 Acetaminophen 325 Mg Tablet PO Q6H PRN PRN Pain 1-10 Or Fever >100.7 Albuterol Sulfate 2.5 mg 09/12/24 16:30 09/13/24 13:24 Albuterol 2.5 Mg/3 Ml Vial.Neb. INHALATION 2.5 mg Q6H.RT ITZEL Administration Albuterol/Ipratropium 3 ml 09/12/24 16:02 Ipratropium/Albuterol Sulfate 3 Ml Ampul.Neb INHALATION Q4HWA.RT PRN shortness of breath or wheezing Apixaban 5 mg 09/12/24 22:00 09/13/24 08:27 Apixaban 5 Mg Tablet PO 5 mg Q12 ITZEL Administration Aspirin 81 mg 09/13/24 08:00 09/13/24 08:26 Aspirin 81 Mg Tab.Chew PO 81 mg BREAKFAST ITZEL Administration Atorvastatin Calcium 5 mg 09/12/24 22:00 09/12/24 19:58 Atorvastatin Calcium 10 Mg Tablet PO 5 mg QHS ITZEL Administration Citalopram Hydrobromide 10 mg 09/13/24 10:00 09/13/24 08:27 Citalopram 10 Mg Tablet PO 10 mg DAILY ITZEL Administration Dexamethasone 6 mg 09/13/24 08:00 09/13/24 08:26 Dexamethasone 4 Mg Tablet PO 09/22/24 08:01 6 mg DAILY@0800 ITZEL Administration Glucagon 1 mg 09/12/24 16:02 Glucagon [...] 100 Unit/Ml Insuln.Pen SC 2 u ACHS ITZEL Administration Protocol Labetalol HCl 10 - 20 mg 09/12/24 16:02 Labetalol 20mg/4ml Syringe IV 09/13/24 16:02 Q10M PRN PRN maintain BP parameters with HR >/=60 Lorazepam 0.5 mg 09/12/24 16:02 09/12/24 20:05 Lorazepam 0.5 Mg Tablet PO 0.5 mg Q12H PRN Administration Anxiety Nystatin 1 applic 09/13/24 10:00 09/13/24 11:25 Nystatin Powder 15gm Bottle TOPICAL 1 applic BID ITZEL Administration Protocol Ondansetron HCl 4 mg 09/12/24 16:02 Ondansetron 4 Mg/2 Ml Vial IV Q8H PRN PRN NAUSEA/VOMITING Pantoprazole Sodium 40 mg 09/13/24 10:00 09/13/24 08:27 Pantoprazole Sodium 40 Mg Tablet PO 40 mg DAILY ITZEL Administration Quetiapine Fumarate 100 mg 09/12/24 18:00 09/13/24 11:25 Quetiapine 100 Mg Tablet PO 100 mg Q6 ITZEL Administration Sodium Chloride 10 - 40 ml 09/12/24 16:07 09/12/24 19:59 0.9% Saline Lock 10 Ml Syringe IV 10 ml UD PRN Administration SALINE FLUSH Trazodone HCl 200 mg 09/12/24 22:00 09/12/24 19:58 Trazodone 100 Mg Tablet PO 200 mg QHS ITZEL Administration 09/14/24 1522 <Electronically signed by Long Zamarripa MD> Cosigner Signature (if applicable): CC: Dr. Homer Bradford MD~ Signed [facility] Work Phone: 1(304) 515-857002-28-2025 Progress note [facility] Medical Records Department [address] [place] [address] Progress Note - Hospitalist 09/14/24 1546 MR#: [id number] Acct: [id number] Name: PERNELL RODRIGUEZ Rep #:[id number] 1 : 1960 64 From: Guevara dyer MD PCP: Dr. Homer Bradford MD Status:ADM IN Location: [place] [address] Subjective Subjective Doing well, no issues overnight. [...] to assist. Anticipate the patient may require intermediate facility when she is medically ready for discharge. Recent psychiatric hospitalization for roughly 20 days in [facility]. Continue with Seroquel and Ativan DVT: Eliquis Charges/Coding Visit Charges Inpatient E&M: 11255 Subs Hosp L2 09/14/24 1540 Cosigner Signature (if applicable): CC: ~ Signed [facility]02-28-2025 Consult note [facility] Medical Records Department [address] [place] [address] Consultation - Neurology 09/13/24 1413 MR#: [id number] Acct: [id number] Name: PERNELL RODRIGUEZ Rep #:[id number] 6 : 1960 64 From: Long Arthur PCP: Dr. Homer Bradford MD Status:ADM IN Location: [place] [address] Assessment and Plan: Neuro Assessment/Plan 64 y/o woman with h/o Afib on AC, recent admission to psych facility for concernfor blood clot p/w difficult speaking. In ER, noted to be COVID positive. CT Head - concern for left BG stroke. CTA - shows no LVO but shows lymphadenopathy.MRI brain- no acute stroke. LDL-84. A1c-5.4. WHA-UR-00-65%. Tod ay, she reports feeling better with NIHSS-0. 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 I personally [...] lymphadenopathy.MRI brain- no acute stroke. LDL-84. A1c-5.4. XSO-IN-30-65%. Today, she reports feeling better with NIHSS-0. [...] or with change in RN caregiver Freq: [id number] Protocol: Activity Type Activity Date Activity User E-sign Co-sign Detail Recorded Client Recorded Date Recorded By Document 09/12/24 17:30 SHANIKA [id number] 09/12/24 17:32 SHANIKA 09/12/24 17:30 NIH Stroke [...] and with change in RN caregiver. Freq: [id number] Protocol: Activity Type Activity Date Activity User E-sign Co-sign Detail Recorded Client Recorded Date Recorded By Document 09/13/24 04:00 DOREEN [id number] 09/13/24 04:05 DOREEN 09/13/24 04:00 NIH Stroke [...] 79.9 H, Lymph % (Auto) 10.0 L, [place] % (Auto) 9.5, Eos % (Auto) 0.0, [...] the right posterior cerebral artery. Reading Location: [facility] Neck MRA 09/12/24 15:01 IMPRESSION: Suboptimal [...] arteries appear to be patent. Reading Location: [facility] Brain MRI 09/12/24 16:02 IMPRESSION: No [...] as above. Partially empty sella. [facility] Active Medications Active Medications Active Medications: Current Medications Generic Name Dose Route Start Last Admin Trade Name Freq PRN Reason Stop Dose Admin Acetaminophen 650 mg 09/12/24 16:02 Acetaminophen 325 Mg Tablet PO Q6H PRN PRN Pain 1-10 Or Fever >100.7 Albuterol Sulfate 2.5 mg 09/12/24 16:30 09/13/24 13:24 Albuterol 2.5 Mg/3 Ml Vial.Neb. INHALATION 2.5 mg Q6H.RT ITZEL Administration Albuterol/Ipratropium 3 ml 09/12/24 16:02 Ipratropium/Albuterol Sulfate 3 Ml Ampul.Neb INHALATION Q4HWA.RT PRN shortness of breath or wheezing Apixaban 5 mg 09/12/24 22:00 09/13/24 08:27 Apixaban 5 Mg Tablet PO 5 mg Q12 ITZEL Administration Aspirin 81 mg 09/13/24 08:00 09/13/24 08:26 Aspirin 81 Mg Tab.Chew PO 81 mg BREAKFAST ITZEL Administration Atorvastatin Calcium 5 mg 09/12/24 22:00 09/12/24 19:58 Atorvastatin Calcium 10 Mg Tablet PO 5 mg QHS ITZEL Administration Citalopram Hydrobromide 10 mg 09/13/24 10:00 09/13/24 08:27 Citalopram 10 Mg Tablet PO 10 mg DAILY ITZEL Administration Dexamethasone 6 mg 09/13/24 08:00 09/13/24 08:26 Dexamethasone 4 Mg Tablet PO 09/22/24 08:01 6 mg DAILY@0800 ITZEL Administration Glucagon 1 mg 09/12/24 16:02 Glucagon [...] 100 Unit/Ml Insuln.Pen SC 2 u ACHS ITZEL Administration Protocol Labetalol HCl 10 - 20 mg 09/12/24 16:02 Labetalol 20mg/4ml Syringe IV 09/13/24 16:02 Q10M PRN PRN maintain BP parameters with HR >/=60 Lorazepam 0.5 mg 09/12/24 16:02 09/12/24 20:05 Lorazepam 0.5 Mg Tablet PO 0.5 mg Q12H PRN Administration Anxiety Nystatin 1 applic 09/13/24 10:00 09/13/24 11:25 Nystatin Powder 15gm Bottle TOPICAL 1 applic BID ITZEL Administration Protocol Ondansetron HCl 4 mg 09/12/24 16:02 Ondansetron 4 Mg/2 Ml Vial IV Q8H PRN PRN NAUSEA/VOMITING Pantoprazole Sodium 40 mg 09/13/24 10:00 09/13/24 08:27 Pantoprazole Sodium 40 Mg Tablet PO 40 mg DAILY ITZEL Administration Quetiapine Fumarate 100 mg 09/12/24 18:00 09/13/24 11:25 Quetiapine 100 Mg Tablet PO 100 mg Q6 ITZEL Administration Sodium Chloride 10 - 40 ml 09/12/24 16:07 09/12/24 19:59 0.9% Saline Lock 10 Ml Syringe IV 10 ml UD PRN Administration SALINE FLUSH Trazodone HCl 200 mg 09/12/24 22:00 09/12/24 19:58 Trazodone 100 Mg Tablet PO 200 mg QHS ITZEL Administration 09/14/24 1522 Cosigner Signature (if applicable): CC: Dr. Homer Bradford MD~ Signed [facility]02-27-2025 Progress note Author Guevara Collins [facility] Note Date/Time September 13, 2024 5:23pm [facility] Medical Records Department [facility] [address] Progress Note - Hospitalist 09/13/248 MR#: [id number] Acct: [id number] Name: PERNELL RODRIGUEZ CHEKO Rep #:[id number] : 1960 64 From: Guevara dyer MD PCP: Dr. Homer Bradford MD Status:ADM IN Location: [place] [address]- Subjective Subjective Doing well, no issues overnight. [...] (Auto) 79.9 H, Lymph % (Auto) 10.0 L,[place] % (Auto) 9.5, Eos % (Auto) 0.0, [...] right posterior cerebral artery. Reading Location: [facility] Neck MRA 09/12/24 15:01 IMPRESSION: Suboptimal examination [...] arteries appear to be patent. Reading Location: [facility] Brain MRI 09/12/24 16:02 IMPRESSION: No acute [...] as above. Partially empty sella. Reading Location: [facility] Echocardiogram 09/12/24 16:02 Interpretation Summary The estimated [...] to assist. Anticipate the patient may require intermediate facility when she is medically ready for discharge. Recent psychiatric hospitalization for roughly 20 days in [facility]. Continue with Seroquel and Ativan DVT: Eliquis Charges/Coding Visit Charges Inpatient E&M: 76664 Subs Hosp L2 09/13/24 4813 <Electronically signed by Guevara Collins MD> Cosigner Signature (if applicable): CC: ~ Signed [facility] Work Phone: 1(364) 758-124402-27-2025 Progress note [facility] Medical Records Department [address] [place] [address] Progress Note - Hospitalist 09/13/24 1718 MR#: [id number] Acct: [id number] Name: PERNELL RODRIGUEZ Rep #:[id number] : 1960 64 From: Guevara dyer MD PCP: Dr. Homer Bradford MD Status:ADM IN Location: [place] [address] Subjective Subjective Doing well, no issues overnight. [...] (Auto) 79.9 H, Lymph % (Auto) 10.0 L,[place] % (Auto) 9.5, Eos % (Auto) 0.0, [...] the right posterior cerebral artery. Reading Location: [facility] Neck MRA 09/12/24 15:01 IMPRESSION: Suboptimal [...] arteries appear to be patent. [facility] 09/12/24 16:02 IMPRESSION: No acute [...] as above. Partially empty sella. Reading Location: [facility] Echocardiogram 09/12/24 16:02 Interpretation Summary The estimated [...] to assist. Anticipate the patient may require intermediate facility when she is medically ready for discharge. Recent psychiatric hospitalization for roughly 20 days in [facility]. Continue with Seroquel and Ativan DVT: Eliquis Charges/Coding Visit Charges Inpatient E&M: 29176 Subs Hosp L2 09/13/24 1723 Cosigner Signature (if applicable): CC: ~ Signed [facility]02-27-2025 NoteHNO ID: [id number] Author: ASPEN BELL LPN Service: ? Author Type: LICENSED NURSE Type: Progress Notes Filed: 09/13/2024 07:33 Note Text: Scan on 09/12/2024 3:24 PM by Gita Curtis PA-C: Consultation - Emergency Medicine Scan on 09/12/2024 3:30 PM by Gita Curtis PA-[facility] 09-13-2024 History of Present illness Narrative* Aspen Bell LPN - 09/13/2024 7:32 AM EST Scan on 09/12/2024 3:24 PM by Gita Curtis PA-C: Consultation - Emergency Medicine Scan on 09/12/2024 3:30 PM by Gita Curtis PA-C documented in this encounterTrihealth02-26-2025 History and physical note Author Wilfredo Denton [facility] Note Date/Time September 12, 2024 3:07pm [facility] Medical Records Department [address] [place] [address] H&P Exam - Hospitalist 09/12/24 1459 MR#: [id number] Acct: [id number] Name: PERNELL RODRIGUEZ #:[id number] : 1960 64 From: Wilfredo Denton DO PCP: Dr. Homer Bradford MD Status:REG ER Location: ED HPI - General General Date of Service: 09/12/24 Chief Complaint: difficulty speaking. HPI Narrative PERNELL RODRIGUEZ, is a 64 F who presents with difficulty speaking. Patient was recently admitted in a psychiatric facility in [facility] from the beginning of August to [...] that are not germane to the questions. [facility] Medical History (Updated 09/12/24 @ 15:[address] Wilfredo Denton, ) History of echocardiogram Wears glasses Anxiety Depression [...] 85.1 H, Lymph % (Auto) 5.9 L, [place] %(Auto) 8.4, Eos % (Auto) 0.1, Baso [...] Clarity Clear, Urine pH 6.0, Ur Specific [place] 1.010, Urine Protein Negative, Urine Glucose (UA) [...] IMPRESSION: No active cardiopulmonary disease. Reading Location: [facility] 09/12/24 11:40 IMPRESSION: 1. Left basal ganglia area of diminished attenuation concerning for recent areaof ischemic infarction. 2. Bilateral maxillary sinus inflammation. Reading Location: [facility] Assessment & Plan Assessment/Plan (1) Stroke: [...] to assist. Anticipate the patient may require intermediate facility when she is medically ready for discharge. Recent psychiatric hospitalization for roughly 20 days in [facility]. Will request records if were able [...] medically ready anticipate patient would likely require intermediate facility. Charges/Coding Visit Charges Inpatient E&M: 31424 Init Hosp L3 09/12/24 1507 <Electronically signed by Wilfredo Denton DO> Cosigner Signature (if applicable): CC: Dr. Wilfredo Denton DO; Dr. Homer Bradford MD~ Signed [facility] Work Phone: 1(589) 529-309702-26-2025 Discharge summary Author Randy Cabrales [facility] Note Date/Time September 12, 2024 3:03pm [facility] Medical Records Department [address] [place] [address] Emergency Department Summary 09/12/24 MR#: [id number] Acct: [id number] Name: PERNELL RODRIGUEZ Rep #:[id number] : 1960 64 From: Randy Cabrales [...] She once again presents with multiple complaints. [facility] Medical History History of echocardiogram Wears [...] 85.1 H Lymph % (Auto) 5.9 L [place] % (Auto) 8.4 Eos % (Auto) 0.1 [...] Clarity Clear Urine pH 6.0 Ur Specific [place] 1.010 Urine Protein Negative Urine Glucose (UA) [...] (Auto) Neut % (Auto) Lymph % (Auto) [place] % (Auto) Eos % (Auto) Baso % [...] Color Urine Clarity Urine pH Ur Specific [place] Urine Protein Urine Glucose (UA) Urine Ketones Urine Occult Blood Urine Nitrite Urine Bilirubin Urine Urobilinogen Ur Leukocyte Esterase Urine RBC Urine WBC Ur Squamous Epith Cells Urine Bacteria Urine Mucus Radiography Diagnostic Testing: Clinical Impression(s) from Imaging Studies Chest X-Ray 09/12/24 11:01 IMPRESSION: No active cardiopulmonary disease. Reading Location: [facility] 09/12/24 11:40 IMPRESSION: 1. Left basal ganglia area of diminished attenuation concerning for recent areaof ischemic infarction. 2. Bilateral maxillary sinus inflammation. Reading Location: [facility] Management Discussion w/another healthcare provider: Hospitalist (Dr. Denton) Discharge Plan Dx/Rx/DC Orders Clinical Impression: COVID, Chest pain, COPD exacerbation, CKD (chronic kidney disease) stage 3, ABT60-83 ml/min Disposition Disposition: [facility] What to do if you have Problems For any increased pain, shortness of breath, bleeding, nausea or vomiting, chestpain, or any unexpected problems, contact your Primary Care Provider. Call [facility] ([phone]) or report to the closest Emergency Room. Call 911 if necessary. 09/12/24 1503 <Electronically signed by Randy Cabrales MD> Cosigner Signature (if applicable): CC: Dr. Homer Bradford MD ~ Signed [facility] Work Phone: 1(710) 761-429102-26-2025 Evaluation note* Diagnosis Onset Date Resolution Status Admit Date Chest pain acute September 12, 2024 2:50pm COVID acute September 12, 2024 2:50pm Stroke acute September 12, 2024 2:50pm CKD (chronic kidney disease) stage 3, GFR 30-59 ml/min chronic Februa 2024 2:50pm COPD exacerbation chronic uar y 2024 2:50pm [facility] Work Phone: [phone]) 746-488702-26-2025 Evaluation note* Diagnosis Onset Date Resolution Status Admit Date CKD (chronic kidney disease) stage 3, GFR 30-59 ml/min chronic Februa ry 2024 2:50pm Chest pain resolved September 12, 2024 2:50pm COPD exacerbation resolved y 2024 2:50pm COVID resolved September 12, 2024 2:50pm Stroke resolved September 12, 2024 2:50pm Urinary tract infection acute A pril 2024 2:30pm [facility] Work Phone: [phone]) 947-711302-26-2025 Evaluation note* Diagnosis Onset Date Resolution Status Admit Date CKD (chronic kidney disease) stage 3, GFR 30-59 ml/min chronic Februa ry 2024 2:50pm Chest pain resolved September 12, [...] January 08 7:30pm Sinus tachycardia seen on traffic monitor specialist acute January 08, 2025 7:30pm Uzmia-ep-aianaek kidney injury chronic January 08, 2025 7:30pm DM (diabetes mellitus), type 2 chronic January 08, 2025 7:30pm History of COPD chronic December 7:30pm HLD (hyperlipidemia) chronic January 08, 2025 7:30pm [facility] Work Phone: 1(423) 812-926702-26-2025 Evaluation note* Diagnosis Onset Date Resolution Status [...] January 08 7:23pm Sinus tachycardia seen on traffic monitor specialist acute January 08, 2025 7:23pm Ooflf-um-wqfdzyo kidney injury chronic Rosalina 24th, 2025 7:23pm DM (diabetes mellitus), type 2 chronic January 08, 2025 7:23pm History of COPD chronic December 7:23pm HLD (hyperlipidemia) chronic January 08, 2025 7:23pm [facility] Work Phone: 1(408) 842-112602-26-2025 History and physical note [facility] Medical Records Department [address] [place] [address] H&P Exam - Hospitalist 09/12/24 1459 MR#: [id number] Acct: [id number] Name: PERNELL RODRIGUEZ Rep #:[id number] : 1960 64 From: Wilfredo Denton DO PCP: Dr. Homer Bradford MD Status:REG ER Location: ED HPI - General General Date of Service: 09/12/24 Chief Complaint: difficulty speaking. HPI Narrative PERNELL RODRIGUEZ, is a 64 F who presents with difficulty speaking. Patient was recently admitted in apsychiatric facility in [facility] from the beginning of August to [...] that are not germane to the questions. [facility] Medical History (Updated 09/12/24 @ 15:[address] Wilfredo Denton DO) History of echocardiogram Wears glasses Anxiety [...] 85.1 H, Lymph % (Auto) 5.9 L, [place] %(Auto) 8.4, Eos % (Auto) 0.1, Baso [...] Clarity Clear, Urine pH 6.0, Ur Specific [place] 1.010, Urine Protein Negative, Urine Glucose (UA) [...] IMPRESSION: No active cardiopulmonary disease. Reading Location: [facility] 09/12/24 11:40 IMPRESSION: 1. Left basal ganglia area of diminished attenuation concerning for recent areaof ischemic infarction. 2. Bilateral maxillary sinus inflammation. Reading Location: [facility] Assessment & Plan Assessment/Plan (1) Stroke: [...] to assist. Anticipate the patient may require intermediate facility when she is medically ready for discharge. Recent psychiatric hospitalization for roughly 20 days in [facility]. Will request records if were able [...] medically ready anticipate patient would likely require intermediate facility. Charges/Coding Visit Charges Inpatient E&M: 14214 Init Hosp L3 09/12/24 1507 Cosigner Signature (if applicable): CC: Dr. Wilfredo Denton DO; Dr. Homer Bradford MD~ Signed [facility]02-26-2025 Discharge summary [facility] Medical Records Department [address] [place] [address] Emergency Department Summary 09/12/24 MR#: [id number] Acct: [id number] Name: PERNELL RODRIGUEZ Rep #:[id number] : 1960 64 From: Randy Cabrales [...] She once again presents with multiple complaints. [facility] Medical History History of echocardiogram Wears [...] Labs: Laboratory Results - last 24 hr 02/09/12/24 09/12/24 11:22 12:30 12:58 WBC 9.0 RBC 4.46 Hgb 14.0 Hct 42.9 MCV 96.2 MCH 31.4 MCHC 32.6 RDW Std Deviation 47.2 H RDW Coeff of Robert 13.2 Plt Count 231 MPV 10.4 Immature Gran % (Auto) 0.300 Neut % (Auto) 85.1 H Lymph % (Auto) 5.9 L [place] % (Auto) 8.4 Eos % (Auto) 0.1 [...] Clarity Clear Urine pH 6.0 Ur Specific [place] 1.010 Urine Protein Negative Urine Glucose (UA) [...] (Auto) Neut % (Auto) Lymph % (Auto) [place] % (Auto) Eos % (Auto) Baso % [...] Color Urine Clarity Urine pH Ur Specific [place] Urine Protein Urine Glucose (UA) Urine Ketones Urine Occult Blood Urine Nitrite Urine Bilirubin Urine Urobilinogen Ur Leukocyte Esterase Urine RBC Urine WBC Ur Squamous Epith Cells Urine Bacteria Urine Mucus Radiography Diagnostic Testing: Clinical Impression(s) from Imaging Studies Chest X-Ray 09/12/24 11:01 IMPRESSION: No active cardiopulmonary disease. Reading Location: [facility] 09/12/24 11:40 IMPRESSION: 1. Left basal ganglia area of diminished attenuation concerning for recent areaof ischemic infarction. 2. Bilateral maxillary sinus inflammation. Reading Location: [facility] Management Discussion w/another healthcare provider: Hospitalist (Dr. Denton) Discharge Plan Dx/Rx/DC Orders Clinical Impression: COVID, Chest pain, COPD exacerbation, CKD (chronic kidney disease) stage 3, JLO09-23 ml/min Disposition Disposition: Acute [facility] Hospital [facility] What to do if you have Problems For any increased pain, shortness of breath, bleeding, nausea or vomiting, chestpain, or any unexpected problems, contact your Primary Care Provider. Call [facility] ([phone]) or report tothe closest Emergency Room. Call 911 if necessary. 09/12/24 1503 Cosigner Signature (if applicable): CC: Dr. Homer Bradford MD ~ Signed [facility]02-26-2025 Radiology Diagnostic study note [facility] Imaging Services [address] [place] [address] Chest 1 View (Portable) MR#: [id number] Acct: [id number] Name: PERNELL RODRIGUEZ Rep #: [id number] : 1960 F 64 From: Carolyn Meza MD PCP: Dr. Homer Bradford MD Status: [facility] ER Study:Chest 1 View (Portable) Date of Exam: 09/12/24 Exam# [id number] Ordering Dr: Randy Cabrales MD PROCEDURE: CHEST [...] IMPRESSION: No active cardiopulmonary disease. Reading Location: [facility] CC: Dr. Randy Cabrales MD; Dr. Homer Bradford MD ~ Supervisor Composing Room: Signed [facility]02-26-2025 Radiology Diagnostic study note [facility] Imaging Services [address] [place] [address] Brain/Head without Contrast MR#: [id number] Acct: [id number] Name: PERNELL RODRIGUEZ Rep #: [id number] : 1960 F 64 From: Carolyn Meza MD PCP: Dr. Homer Bradford MD Status: REG ER Study:Brain/Head without Contrast Date of Exa m: 09/12/24 Exam# [id number] Ordering Dr: Randy Cabrales MD EXAM: CT [...] 2. Bilateral maxillary sinus inflammation. Reading Location: [place] [address] CC: Dr. Randy Cabrales MD; Dr. Homer Bradford MD ~ Supervisor Composing Room: Signed [facility]12-04-2024 Telephone encounter Note* Telephone Encounter - [...] a day. Authorizing Provider: HOMER BRADFORD MD [facility]12-04-2024 Miscellaneous Notes* Telephone Encounter - Homer Bradford [...] 20, 2024 2:55 PM documented in this encounterTrihealth12-04-2024 Telephone encounter Note * Telephone Encounter - [...] Cardoza LPN June 20, 2024 2:55 PM [facility]10-12-2024 Telephone encounter Note* Telephone Encounter - Homer Bradford MD - 04/28/2024 7:55 AM EDT The following approved medication requests have been transmitted electronically. Requested Prescriptions Signed Prescriptions Disp Refills lovastatin 40 mg tablet 90 tablet 1 Sig: TAKE 1 TABLET BY MOUTH DAILY AT BEDTIME. FOR CHOLESTEROL. Authorizing Provider: HOMER BRADFORD MD [facility]10-12-2024 Miscellaneous Notes* Telephone Encounter - Homer Bradford [...] 27, 2024 3:40 PM documented in this encounterTrihealth10-11-2024 Telephone encounter Note * Telephone Encounter - [...] Rasheed LPN April 27, 2024 3:40 PM [facility]09-12-2024 Telephone encounter Note* Telephone Encounter - Mary [...] Rodriguez LPN March 29, 2024 10:57 AM [facility]09-12-2024 Miscellaneous Notes* Telephone Encounter - Mary Ann [...] 29, 2024 10:57 AM documented in this encounterTrihealth09-09-2024 Telephone encounter Note * Telephone Encounter - Мария Hernandes LPN - 03/26/2024 3:09 PM EDT Pt notified of results and provider message. Мария Hernandes LPN [facility]09-09-2024 Miscellaneous Notes* Telephone Encounter - Мария Hernandes [...] has improved. Cholesterol stable. documented in this encounterTrihealth09-09-2024 History of Present illness Narrative* Aspen Bell LPN - 03/26/2024 2:37 PM EDT Scan on 03/26/2024 1:49 PM by Provider, ANTONI Pelayo: Consultation - Dermatology documented in this encounterTrihealth09-09-2024 Telephone encounter Note * Telephone Encounter - Carol Armenta MA - 03/26/2024 9:30 AM EDT Message left for pt to call back for results. Carol Armenta MA [facility]09-06-2024 Telephone encounter Note* Telephone Encounter - Aspen Bell LPN - 03/23/2024 1:44 PM EDT Left message for pt to contact office. Aspen Bell LPN [facility]09-06-2024 Telephone encounter Note* Telephone Encounter - Meagan Yusuf PA-C - 03/23/2024 11:03 AM EDT Covid/flu/rsv neg. Kidney function is stable. A1c has improved. Cholesterol stable. [facility]09-05-2024 History of Present illness Narrative* Meagan Yusuf [...] Chest pain Comment: Sees Dr. Jacob in [facility]. Had a normal cardiac CTA in 2009 with no calcium. 04/02/2015: Chronic back pain greater than 3 months duration 03/12/2020: Chronic insomnia Comment: Ilya Calderón ([facility]) on melatonin. 04/25/2015: Chronic obstructive pulmonary disease (HCC) 01/14/2014: Chronic pain 02/12/2014: Constipation 11/16/2015: [place] or callus 10/11/2017: Current use of proton pump inhibitor 01/14/2014: CVA (cerebral infarction) 01/14/2014: Diabetic eye exam ([facility]) Comment: Seebryan Sanchez last done 03/02/2019 01/14/2014: Diabetic foot ([facility]) Comment: Seebryan Martins 01/14/2014: Extrapyramidal reaction 04/25/2015: Gastroesophageal reflux disease without esophagitis 04/25/2015: History of CVA (cerebrovascular accident) Comment: Sees Dr. Ilya Calderón ([facility]) 01/14/2014: Hives 01/14/2014: Hypotension Comment: Seebryan Calderón ([facility]) and has her on fludrocortisone 07/08/2017: Incontinence of feces 04/28/2017: Irritable bowel syndrome with both constipation and diarrhea 01/14/2014: Low back pain 07/16/2022: Low vitamin B12 level 04/16/2014: Lumbosacral neuritis 04/25/2015: Major depressive disorder, recurrent episode, moderate ([facility]) Comment: On disability 04/28/2017: Migraine without aura and without status migrainosus, not intractable Comment: Seeing Dr. Calderón 01/14/2014: Mixed hyperlipidemia 07/25/2018: Mixed incontinence urge and stress (male)(female) 10/27/2016: Morbid obesity due to excess calories (HCC) 07/25/2018: Muscle weakness (generalized) 04/16/2014: Myofascial pain [...] 01/14/2014: 2D ECHO ([facility]) Comment: EF=65% Trival NH, TI, PI, LA enlarged. 08/28 and 09/25: [...] ROUTINE Meagan Yusuf PA-C documented in this encounterTrihealth08-19-2024 Telephone encounter Note * Telephone Encounter - Rajani Granger MA - 03/05/2024 10:23 AM EDT Faxed. Rajani Granger MA [facility]08-19-2024 Miscellaneous Notes* Telephone Encounter - Rajani Granger [...] to pcp on 02-16-24, and 01-16-24, to [phone]. Asking if pcp office can fax it to fax # [phone] Noted there is a CMN form located in scanned documents on 01-24-24 but it is not filled out or signed. documented in this encounterTrihealth08-16-2024 Telephone encounter Note * Telephone Encounter - Homer Bradford MD - 03/02/2024 4:12 PM EDT Forms ready [facility]08-16-2024 Telephone encounter Note* Telephone Encounter - Rajani Granger MA - 03/02/2024 12:26 PM EDT Printed forms and O/V note given to provider. Rajani Granger MA [facility]08-16-2024 Telephone encounter Note* Telephone Encounter - Erwin Harvey RN - 03/02/2024 11:55 AM EDT Kelsy- [facility]- reports they never received the CMN for incontinent supplies back from pcp office. Reports they faxed it to pcp on 02-16-24, and 01-16-24, to [phone]. Asking if pcp office can fax it to fax # [phone] Noted there is a CMN form located in scanned documents on 01-24-24 but it is not filled out or signed. [facility]07-17-2024 Telephone encounter Note* Telephone Encounter - Rajani Granger MA - 02/01/2024 11:21 AM EDT Re Faxed. Rajani Granger MA [facility]07-17-2024 Miscellaneous Notes* Telephone Encounter - Rajani Granger MA - 02/01/2024 11:21 AM EDT Re Faxed. Rajani Granger MA * Telephone Encounter - Ana Cardoza LPN - 02/01/2024 10:47 AM EDT Patricia with [facility] is calling to let you know they did not received the fax sent back to them on 01-18-24 and asking to have this ref-axed to alternate number [phone]. Ana Cardoza LPN documented in this encounterTrihealth07-17-2024 Telephone encounter Note * Telephone Encounter - Ana Cardoza LPN - 02/01/2024 10:47 AM EDT Patricia with [facility] is calling to let you know they did not received the fax sent back to them on 01-18-24 and asking to have this ref-axed to alternate number [phone]. Ana Cardoza LPN [facility]07-16-2024 Telephone encounter Note* Telephone Encounter - Rajani Granger MA - 01/31/2024 10:14 AM EDT Faxed. Rajani Granger MA [facility]07-16-2024 Miscellaneous Notes* Telephone Encounter - Rajani Granger MA - 01/31/2024 10:14 AM EDT Faxed. Rajani Granger MA * Telephone Encounter - Homer Bradford MD - 01/31/2024 8:04 AM EDT Script ready to be faxed to [phone] * Telephone Encounter - Maria Alejandra Braswell RN - 01/30/2024 5:23 PM EDT Patient calling for script for pull ups size 2X be sent to [facility]. Pended from previous order. Maria Alejandra Braswell RN documented in this encounterTrihealth07-16-2024 Telephone encounter Note * Telephone Encounter - Homer Bradford MD - 01/31/2024 8:04 AM EDT Script ready to be faxed to [phone] [facility]07-15-2024 Telephone encounter Note* Telephone Encounter - Maria Alejandra Braswell RN - 01/30/2024 5:23 PM EDT Patient calling for script for pull ups size 2X be sent to [facility]. Pended from previous order. Maria Alejandra Braswell RN [facility]07-03-2024 Telephone encounter Note* Telephone Encounter - Rajani Granger MA - 01/18/2024 5:04 PM EDT Received fax from [facility] requesting updated office note regarding the incontinence. Faxed most recent office note. Patient receives her incontinence supplies. Rajani Granger MA' [place] [address]-03-2024 Miscellaneous Notes* Telephone Encounter - Rajani Granger MA - 01/18/2024 5:04 PM EDT Received fax from [facility] requesting updated office note regarding the incontinence. Faxed most recent office note. Patient receives her incontinence supplies. Rajani Granger MA' documented in this encounterTrihealth06-19-2024 Telephone encounter Note * Telephone Encounter - [...] once daily. Authorizing Provider: HOMER BRADFORD MD [facility] Miscellaneous Notes* Telephone Encounter - Homer Bradford [...] 04, 2024 3:29 PM documented in this encounterTrihealth06-19-2024 Telephone encounter Note * Telephone Encounter - [...] Rodriguez LPN January 04, 2024 3:29 PM [facility]06-10-2024 Telephone encounter Note* Telephone Encounter - Shanti Monreal RN - 12/26/2023 12:23 PM EDT Patient calls and notified of results. Patient verbalizes understanding. Shanti Monreal RN [facility]06-10-2024 Miscellaneous Notes* Telephone Encounter - Shanti Monreal [...] her mammogram was normal. documented in this encounterTrihealth06-10-2024 Telephone encounter Note * Telephone Encounter - Rajani Granger MA - 12/26/2023 10:16 AM EDT Left message for patient to contact office. Rajani Granger MA [facility]06-08-2024 Telephone encounter Note* Telephone Encounter - Homer Bradford MD - 12/24/2023 11:33 PM EDT Let patient know her mammogram was normal. [facility]06-07-[facility]24 Note* Letter - Coordinator, Mammography - 12/23/2023 4:55 PM EDT December 26, 2023 PID: [id number] Pernell PepeMarci Rodriguez [address] [place] [address] Dear Ms. Rodriguez, We are pleased to [...] report will be kept on file at [facility] as part of your permanent medical record and are available for your continuing care. Thank you for allowing us to help in meeting your health care needs. Sincerely, Dr. Poole Interpreting Radiologist [facility] (Normal-Clinical Evaluation) [facility]06-07-2024 Miscellaneous Notes* Letter - Coordinator, Mammography - 12/23/2023 4:55 PM EDT December 26, 2023 PID: [id number] Pernell Jaja Rodriguez [address] [place] [address] Dear Ms. Rodriguez, We are pleased to [...] report will be kept on file at [facility] as part of your permanent medical record and are available for your continuing care. Thank you for allowing us to help in meeting your health care needs. Sincerely, Dr. Poole Interpreting Radiologist [facility] (Normal-Clinical Evaluation) documented in this encounterTrihealth06-06-2024 History of Present illness Narrative* Irasema Gentile [...] PATIENT PRESENTS WITH AN IMPLANTABLE OR ATTACHED TIMING INSPECTOR: No RADIOLOGY DEPARTMENT: Mammography PERIPHERAL IV DATA: Not applicable SIGNED BY: Emily Hernandez December 22, 2023 12:53 PM documented in this encounterTrihealth05-14-2024 History of Present illness Narrative* Antwan Cope PT - 11/29/2023 5:05 PM EDT Program_ID:[id number] Access Code: [email or web address] URL: [email or web address] Date: 11-29-2023 Prepared By: Antwan Cope Program [...] or less with 2/10 pain or less [place] in home exercise program. Perform reaching overhead without pain. Increased strength of LUE to 4+/5 or greater for ease of lifting, reaching, and pushing Patient Goals: Reduce pain Planned Interventions, Frequency, and Duration: Current Frequency: 1x/week Duration: 4 weeks Total Number of Visits Planned: 4 Planned Treatment Interventions: Therapeutic exercise (76230), Neuromuscular re- education (52046), Therapeutic activities (48402), Manual therapy (32178), Self- [place] [facility] management (33255), Patient/Family/Caregiver Education PLAN FOR NEXT VISIT: Supine [...] Time : 1634 Session Stop Time : 171 Antwan Cope PT documented in this encounterTrihealth05-10-2024 History of Present illness Narrative* Hannah Kwon LPN - 11/25/2023 1:50 PM EDT Scan on 11/24/2023 11:52 AM by Provider, External, PA-C: Miscellaneous Procedures Scan on 11/24/2023 11:49 AM by Gtia Curtis PA-C: Discharge Summary Scan on 11/24/2023 10:36 AM by Gita Curtis PA-C: Jay Kwon LPN documented in this encounterTrihealth05-09-2024 Procedure [facility]05-01[facility]2024 Telephone encounter Note* Telephone Encounter - Rajani Granger MA - 11/16/2023 11:05 AM EDT Patient notified and voiced understanding. Patient wanted the Mammogram cancelled for today because of her shoulder pain., Rajani Granger MA [facility]05-01-2024 Miscellaneous Notes* Telephone Encounter - Rajani Granger MA - 11/16/2023 11:05 AM EDT Patient notified and voiced understanding. Patient wanted the Mammogram cancelled for today because of her shoulder pain., Rajani Granger MA * Telephone Encounter - Meagan Yusuf PA-C - 11/16/2023 10:29 AM EDT Xray of Left shoulder is normal. Still waiting for the read on R shoulder. Continue with Physical Therapy as instructed by Dr. Godwin. documented in this encounterTrihealth05-01-2024 Telephone encounter Note * Telephone Encounter - Meagan Yusuf PA-C - 11/16/2023 10:29 AM EDT Xray of Left shoulder is normal. Still waiting for the read on R shoulder. Continue with Physical Therapy as instructed by Dr. Godwin. [facility]04-30-[facility] Telephone encounter Note* Telephone Encounter - Homer Bradford MD - 11/15/2023 4:02 PM EDT Noted. [facility]04-30-[facility] Miscellaneous Notes* Telephone Encounter - Homer Bradford [...] elquis. Patient's elquis is managed by her Lab Head. Sent fax requesting an update O/V with the procedure they are wanting to do be sent to our office Also notified office that Cardiology manages her Elquis Rajani Granger MA documented in this encounterTrihealth04-30-2024 Telephone encounter Note * Telephone Encounter - Rajani Granger MA - 11/15/2023 2:22 PM EDT Patient's friend dropped off update medication list. He indicated that Dr. Alba would be contacting the office regarding bladder leakage and patient would be having a procedure and waiting approval for patient to stop the elquis. Patient's elquis is managed by her Lab Head. Sent fax requesting an update O/V with the procedure they are wanting to do be sent to our office Also notified office that Cardiology manages her Elquis Rajani Granger MA [facility]04-29-2024 History of Present illness Narrative* Homer Bradford [...] Dallin Christopher: Lee Goins ASHLEE: cardio Dr. Alba: Urology Patient still has no idea what meds she is on and to be taking. Past medical history, appointments, medications, allergies reviewed. Previous Medical History PAST MEDICAL HISTORY Diagnosis Date ASHD (arteriosclerotic heart disease) 10/25/[address] Goins Bilateral leg edema 04/25/2015 Bipolar affective disorder (HCC) 04/25/[address] Colindres Chest pain 02/14/[address] Jacob in [facility]. Had a normal cardiac CTA in 2009 with no calcium. Chronic back pain greater than 3 months duration 04/02/2015 Chronic insomnia 03/12/2020 Ilya Calderón ([facility]) on melatonin. Chronic obstructive pulmonary disease (HCC) 04/25/2015 Chronic pain 01/14/2014 Constipation 02/12/2014 [place] or callus 11/16/2015 Current use of proton pump inhibitor 10/11/2017 CVA (cerebral infarction) 01/14/2014 Diabetic eye exam ([facility]) 01/14/[address] Sanchez last done 03/02/2019 Diabetic foot ([facility]) 01/14/[address] Martins Extrapyramidal [...] 04/16/2014 Major depressive disorder, recurrent episode, moderate ([facility]) 04/25/2015 On disability Migraine without aura and without status migrainosus, not intractable 04/28/[address] Calderón Mixed hyperlipidemia 01/14/2014 Mixed incontinence urge and stress (male)(female) 07/25/2018 Morbid obesity due to excess calories ([facility]) 10/27/2016 Muscle weakness (generalized) 07/25/2018 [...] WNL 2D ECHO (EXEP) 01/14/2014 EF=65% Trival NH, TI, PI, LA enlarged. CARPAL TUNNEL Bilateral 08/28 and 09/25 COLONOSCOPY FLX DX W/COLLJ SPEC WHEN PFRMD 2011 [facility] Colonoscopy, no polyps repeat 10 yrs CRYOCAUTERY [...] mouth two times a day. Per Rajani Fish (Patient not taking: Reported on 11/11/2023) spironolactone (ALDACTONE) 25 mg tablet Take 1 tablet by mouth once daily. Per Rajani Fish (Patient not taking: Reported on 11/11/2023) hyoscyamine [...] Abs Lymph 1.00 - 4.00 k/uL 2.36 [place]% % 10.7 Abs [place] <0.87 k/uL 0.82 Eosin% % 2.5 Abs Eosin <0.46 k/uL 0.19 Baso% % 0.4 Abs Baso <0.11 k/uL 0.03 Immature Gran % % 0.3 IMMATURE GRANS (ABS) <0.10 k/uL <0.03 NRBC /100 WBC 0.0 Absolute nRBC <0.01 k/uL <0.01 DTYPE Auto Color Yellow Yellow Clarity Clear Clear Glucose, Urine Negative Negative Bilirubin, Urine Negative Negative Ketones, Urine Negative Negative Specific [place], Ur 1.005 - 1.030 1.017 Hemoglobin/Blood,Ur Negative [...] 13. Bipolar affective disorder, remission status unspecified ([facility]) - ICD9: 296.80, ICD10: F31.9 - stable [...] which included preparing to see the patient, [id number] patient care, completing clinical documentation, performing a medically appropriate examination, counseling and educating the patient/family/caregiver and ordering medications, tests, or procedures. Homer Bradford MD * Rajani Granger MA - 11/14/2023 1:54 PM EDT Duplicate entry documented in this encounterTrihealth04-26-2024 History of Present illness Narrative* Jarod Godwin [...] Units: Months Frequency: Continuous Intervention/Comfort measure: Cold HPI Pernell is a 63-year-old female who presents [...] Major Depressive Disorder, Recurrent Episode, Moderate (Hcc) [place] Or Callus Nodule of Left Lung Morbid [...] Bursitis of Left Hip Paroxysmal Atrial Fibrillation ([facility]) Leg Cramps Low Vitamin B12 Level Obesity, Class III, BMI >= 40 PAST MEDICAL HISTORY Diagnosis Date ASHD (arteriosclerotic heart disease) 10/25/[address] Goins Bilateral leg edema 04/25/2015 Bipolar affective disorder ([facility]) 04/25/[address] Colinders Chest pain 02/14/[address] Jacob in [facility]. Had a normal cardiac CTA in 2009 with no calcium. Chronic back pain greater than 3 months duration 04/02/2015 Chronic insomnia 03/12/2020 Ilya Calderón ([facility]) on melatonin. Chronic obstructive pulmonary disease ([facility]) 04/25/2015 Chronic pain 01/14/2014 Constipation 02/12/2014 [place] or callus 11/16/2015 Current use of proton pump inhibitor 10/11/2017 CVA (cerebral infarction) 01/14/2014 Diabetic eye exam ([facility]) 01/14/[address] Sanchez last done 03/02/2019 Diabetic foot ([facility]) 01/14/[address] Martins Extrapyramidal [...] 04/16/2014 Major depressive disorder, recurrent episode, moderate ([facility]) 04/25/2015 On disability Migraine without aura and without status migrainosus, not intractable 04/28/[address] Calderón Mixed hyperlipidemia 01/14/2014 Mixed incontinence urge and stress (male)(female) 07/25/2018 Morbid obesity due to excess calories ([facility]) 10/27/2016 Muscle weakness (generalized) 07/25/2018 [...] WNL 2D ECHO (EXEP) 01/14/2014 EF=65% Trival NH, TI, PI, LA enlarged. CARPAL TUNNEL Bilateral 08/28 and 09/25 COLONOSCOPY FLX DX W/COLLJ SPEC WHEN PFRMD 2011 [facility] Colonoscopy, no polyps repeat 10 yrs CRYOCAUTERY [...] mouth two times a day. Per Rajani Fish (Patient not taking: Reported on 11/11/2023) spironolactone (ALDACTONE) 25 mg tablet Take 1 tablet by mouth once daily. Per Rajani Fish (Patient not taking: Reported on 11/11/2023) hyoscyamine [...] shoulder joint Informed Consent Consent Obtained: Verbal [place] Protocol A moment to CARE was completed. [...] Continuous Intervention/Comfort measure: Cold documented in this encounterTrihealth04-26-2024 History of Present illness Narrative* Thea Sen [...] PATIENT PRESENTS WITH AN IMPLANTABLE OR ATTACHED TIMING INSPECTOR: No RADIOLOGY DEPARTMENT: General X-ray: Exam(s) Completed: Upper Extremity X- Ray(s): Shoulder, AP / TRUE AP bilateral Scapular Y view PERIPHERAL IV DATA: Not applicable SIGNED BY: RT Juana(R) November 11, 2023 1:31 PM documented in this encounterTrihealth03-15-2024 Miscellaneous Notes* Telephone Encounter - Caterina Salazar [...] know based on her meds list from [facility] she is not on the Amantadine for her tardive dyskinesia, Florinef for her low blood pressure and Nurtec ODT for her migraines. These were all being prescribed by her neurologist Dr. Calderón. We did reach out to his office and she has not been to see him since 09/2022. Needs to get back in to address these issues. 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 [...] Chest pain 02/14/[address] Jacob in [facility]. Had a normal cardiac CTA in 2009 with no calcium. Chronic back pain greater than 3 months duration 04/02/2015 Chronic insomnia 03/12/2020 Ilya Calderón ([facility]) on melatonin. Chronic obstructive pulmonary disease (HCC) 04/25/2015 Chronic pain 01/14/2014 Constipation 02/12/2014 [place] or callus 11/16/2015 Current use of proton pump inhibitor 10/11/2017 CVA (cerebral infarction) 01/14/2014 Diabetic eye exam ([facility]) 01/14/[address] Sanchez last done 03/02/2019 Diabetic foot ([facility]) 01/14/[address] Martins Extrapyramidal [...] 04/16/2014 Major depressive disorder, recurrent episode, moderate ([facility]) 04/25/2015 On disability Migraine without aura and without status migrainosus, not intractable 04/28/[address] Calderón Mixed hyperlipidemia 01/14/2014 Mixed incontinence urge and stress (male)(female) 07/25/2018 Morbid obesity due to excess calories ([facility]) 10/27/2016 Muscle weakness (generalized) 07/25/2018 [...] WNL 2D ECHO (EXEP) 01/14/2014 EF=65% Trival NH, TI, PI, LA enlarged. CARPAL TUNNEL Bilateral 08/28 and 09/25 COLONOSCOPY FLX DX W/COLLJ SPEC WHEN PFRMD 2011 [facility] Colonoscopy, no polyps repeat 10 yrs CRYOCAUTERY [...] Urine Albumin:Creatinine Ratio due on 12/05/2022 Covid-19 Vaccine( season) Never done Pap Testing due on [...] attempt to get list of meds from [facility] to see who is prescribing what medications. I spent a total of 45 minutes on the date of the service which included preparing to see the patient, [id number] patient care, completing clinical documentation, obtaining and/or reviewing separately obtained history, performing a medically appropriate examination, counseling and educating the pat ient/family/caregiver, ordering medications, tests, or procedures, and communicating with other HCPs (not separately reported). documented in this encounterTrihealth03-04-2024 Miscellaneous Notes* Telephone Encounter - Ana Cardoza [...] Bell LPN * Telephone Encounter - Homer Bradofrd MD - 09/15/2023 3:48 PM EST Let [...] Maria Alejandra Braswell RN. documented in this encounterTrihealth10-26-2023 History of Present illness Narrative* Aspen Bell LPN - 05/12/2023 12:40 PM EDT Scan on 05/11/2023 3:41 PM by Provider, ANTONI Pelayo: CT Scan documented in this encounterTrihealth10-20-2023 Miscellaneous Notes* Telephone Encounter - Aspen Bell LPN - 05/06/2023 2:46 PM EDT Advised pt of same. States it's for her kidney Dr. Advised her she will need to contact [...] been ordered Thank you documented in this encounterTrihealth10-13-2023 Miscellaneous Notes* Telephone Encounter - Homer Bradford [...] you. Umm York RN. documented in this encounterTrihealth09-15-2023 Miscellaneous Notes* Telephone Encounter - Homer Bradford [...] of Last Labs: 02/28/2023 documented in this encounterTrihealth09-11-2023 History of Present illness Narrative* Carol Armenta Ma - 03/28/2023 2:16 PM EDT View External Labs - Hematology [ID [id number]] View External Procedures - Pulmonary [ID [id number]] View External Imaging - X-ray [ID [id number]] documented in this encounterTrihealth08-25-2023 Nurse Note* Viola Perez LPN - 03/11/2023 [...] 09/2011 Viola Perez LPN documented in this encounterTrihealth08-25-2023 History of Present illness Narrative* Caterina Dejesus [...] Chest pain 02/14/[address] Jacob in [facility]. Had a normal cardiac CTA in 2009 with no calcium. Chronic back pain greater than 3 months duration 04/02/2015 Chronic insomnia 03/12/2020 Ilya Calderón ([facility]) on melatonin. Chronic obstructive pulmonary disease (HCC) 04/25/2015 Chronic pain 01/14/2014 Constipation 02/12/2014 [place] or callus 11/16/2015 Current use of proton pump inhibitor 10/11/2017 CVA (cerebral infarction) 01/14/2014 Diabetic eye exam ([facility]) 01/14/[address] Sanchez last done 03/02/2019 Diabetic foot ([facility]) 01/14/[address] Martins Extrapyramidal [...] 04/16/2014 Major depressive disorder, recurrent episode, moderate ([facility]) 04/25/2015 On disability Migraine without aura and without status migrainosus, not intractable 04/28/[address] Calderón Mixed hyperlipidemia 01/14/2014 Mixed incontinence urge and stress (male)(female) 07/25/2018 Morbid obesity due to excess calories ([facility]) 10/27/2016 Muscle weakness (generalized) 07/25/2018 [...] WNL 2D ECHO (EXEP) 01/14/2014 EF=65% Trival NH, TI, PI, LA enlarged. CARPAL TUNNEL Bilateral 08/28 and 09/25 COLONOSCOPY FLX DX W/COLLJ SPEC WHEN PFRMD 2011 [facility] Colonoscopy, no polyps repeat 10 yrs CRYOCAUTERY [...] entered by the nurse and reviewed by vt Nursing Notes: Viola Perez LPN 03/11/2023 2:01 PM Signed REVIEW OF SYSTEMS: [...] preparation Patient requesting to have procedure at [facility] under conscious sedation. States she is unable to get a ride to have procedure done anywhere other than [place]. Chart forwarded to surgeon for review. Diagnoses: (Z12.11) Screening for colon cancer Consultation requested by Meagan Yusuf PA-C for an opinion regarding screening colonoscopy. Myfinal recommendations will be communicated back to the requesting physician by way of shared Medical record or letter to requesting physician via US mail. Caterina Dejesus PA-C documented in this encounterTrihealth08-25-2023 Miscellaneous Notes* Telephone Encounter - Meagan Yusuf [...] Telephone Encounter - Caterina Salazar RN - 03/04/2023 11:25 AM EDT Called patient and no answer. Patients voicemail was full. Will need to call back later. Caterina Salazar RN * Telephone Encounter - [...] Thanks. Meagan Yusuf PA-C documented in this encounterTrihealth08-14-2023 Miscellaneous Notes* Telephone Encounter - Aspen Bell LPN - 02/28/2023 2:43 PM EDT Pt advised Meagan at today that she has not heard back [...] again. Aspen Bell LPN documented in this encounterTrihealth08-14-2023 Instructions* Patient Instructions* Meagan Yusuf PA-C - 02/28/2023 2:12 PM EDT Please try contacting you lung specialist about the testing you had. documented in this encounterTrihealth08-14-2023 History of Present illness Narrative* Meagan Yusuf PA-C - 02/28/2023 2:07 PM EDT Chief Complaint Patient presents with: Recheck HPI Perenll Rodriguez is a 63 year old female [...] She is seeing dr. Perera and dr. Stephane jorge. Last 6 Encounter Wt Readings: Date: Wt: [...] Chest pain 02/14/[address] Jacob in [facility]. Had a normal cardiac CTA in 2009 with no calcium. Chronic back pain greater than 3 months duration 04/02/2015 Chronic insomnia 03/12/2020 Ilya Calderón ([facility]) on melatonin. Chronic obstructive pulmonary disease (HCC) 04/25/2015 Chronic pain 01/14/2014 Constipation 02/12/2014 [place] or callus 11/16/2015 Current use of proton pump inhibitor 10/11/2017 CVA (cerebral infarction) 01/14/2014 Diabetic eye exam ([facility]) 01/14/[address] Sanchez last done 03/02/2019 Diabetic foot ([facility]) 01/14/[address] Martins Extrapyramidal [...] 04/16/2014 Major depressive disorder, recurrent episode, moderate ([facility]) 04/25/2015 On disability Migraine without aura and without status migrainosus, not intractable 04/28/[address] Calderón Mixed hyperlipidemia 01/14/2014 Mixed incontinence urge and stress (male)(female) 07/25/2018 Morbid obesity due to excess calories ([facility]) 10/27/2016 Muscle weakness (generalized) 07/25/2018 [...] WNL 2D ECHO (EXEP) 01/14/2014 EF=65% Trival NH, TI, PI, LA enlarged. CARPAL TUNNEL Bilateral 08/28 and 09/25 COLONOSCOPY FLX DX W/COLLJ SPEC WHEN PFRMD 2011 [facility] Colonoscopy, no polyps repeat 10 yrs CRYOCAUTERY [...] ICD10: J44.9 Patient to get ahold of pulm We will contact them as well 4. [...] SURGERY Meagan Yusuf PA-C documented in this encounterTrihealth08-01-2023 Miscellaneous Notes* Telephone Encounter - Ana Cardoza [...] Pt's mailbox is full. Try later. Ana Cardoza LPM * Telephone Encounter - Ana Cardoza LPN - 02/01/2023 4:30 PM EDT Left a message for pt to call the office and ask to speak to a nurse. nAa Cardoza LPN * Telephone Encounter - Homer [...] you. Ana Cardoza LPN documented in this encounterTrihealth08-01-2023 History of Present illness Narrative* Aspen Bell LPN - 02/15/2023 8:48 AM EDT Scan on 02/15/2023 12:17 AM by Provider, ANTONI Pelayo: CT Scan documented in this encounterTrihealth07-20-2023 Miscellaneous Notes* Telephone Encounter - Kelsie Mercado - 02/03/2023 1:28 PM EDT Images from the original note were not included. Patent called requesting results. Dennys Pool to Pernell Rodriguez 02/02/23 4:06 PM Your circulation appears normal Dennys Pool DPM This [employer] message has not been read. Message above was read to patient. Kelsie Mercado MA documented in this encounterTrihealth06-28-2023 History of Present illness Narrative* Dennys Pool [...] Pain Kim Kiran LPN documented in this encounterTrihealth06-28-2023 Instructions* Patient Instructions* Dennys Pool - 01/12/2023 [...] (or decreased sensation in your feet) a manager document control should always cut your toenails. Be Careful [...] Go to your health care provider or manager document control to treat these conditions. documented in this encounterTrihealth06-20-2023 Instructions* Patient Instructions* Alize Wilcox OD - 01/04/2023 3:37 PM EDT Use erythromycin ointment as directed (twice daily x 1 week in right eye) Use warm compresses daily on both eyes Use diluted baby shampoo or Systane/Ocusoft lid wipes to clean eyelashes/eyelids daily documented in this encounterTrihealth06-20-2023 History of Present illness Narrative* Alize Wilcox OD - 01/04/2023 3:34 PM EDT 1. [...] continue care with primary care doctor and/or gas operations superintendent to maintain optimum levels as they are [...] 04, 2023 3:34 PM documented in this encounterTrihealth05-04-2023 Miscellaneous Notes* Telephone Encounter - Caterina Salazar [...] you. Caterina Salazar RN documented in this encounterTrihealth04-07-2023 Miscellaneous Notes* Telephone Encounter - Ana Cardoza LPN - 10/22/2022 10:10 AM EDT Pt calling for lab results. Okay to leave a message Ana Cardoza LPN documented in this encounterTrihealth04-06-2023 Instructions* Patient Instructions* Meagan Yusuf PA-C - 10/21/2022 12:34 PM EDT Take a Vitamin B complex (with atleast 30mg of B6) 3 times a day for nocturnal leg cramps. Discuss leg cramps with Dr. Calderón per Dr. Bradford. Aquaphor ointment for dryness (get store brand). documented in this encounterTrihealth04-06-2023 History of Present illness Narrative* Meagan Yusuf PA-C - 10/21/2022 12:31 PM EDT Chief Complaint Patient presents with: Recheck HPI Pernell Rodriguez is a 62 year [...] Chest pain 02/14/[address] Jacob in [facility]. Had a normal cardiac CTA in 2009 with no calcium. Chronic back pain greater than 3 months duration 04/02/2015 Chronic insomnia 03/12/2020 Ilya Calderón ([facility]) on melatonin. Chronic obstructive pulmonary disease (HCC) 04/25/2015 Chronic pain 01/14/2014 Constipation 02/12/2014 [place] or callus 11/16/2015 Current use of proton pump inhibitor 10/11/2017 CVA (cerebral infarction) 01/14/2014 Diabetic eye exam ([facility]) 01/14/[address] Sanchez last done 03/02/2019 Diabetic foot ([facility]) 01/14/[address] Martins Extrapyramidal [...] WNL 2D ECHO (EXEP) 01/14/2014 EF=65% Trival NH, TI, PI, LA enlarged. CARPAL TUNNEL Bilateral [...] which included preparing to see the patient, [id number] patient care, completing clinical documentation, obtaining and/or reviewing separately obtained history, performing a medically appropriate examination, counseling and educating the pat ient/family/caregiver, communicating with other HCPs (not separately reported), and communicating results to the patient/family/caregiver. documented in this encounterTrihealth04-06-2023 Miscellaneous Notes* Telephone Encounter - Anaameya Cardoza LPN - 10/21/2022 11:46 AM EDT Patient has [...] you. Ana Cardoza LPN documented in this encounterTrihealth03-20-2023 History of Present illness Narrative* Azam Fam [...] Chest pain 02/14/[address] Jacob in [facility]. Had a normal cardiac CTA in 2009 with no calcium. Chronic back pain greater than 3 months duration 04/02/2015 Chronic insomnia 03/12/2020 Ilya Calderón ([facility]) on melatonin. Chronic obstructive pulmonary disease ([facility]) 04/25/2015 Chronic pain 01/14/2014 Constipation 02/12/2014 [place] or callus 11/16/2015 Current use of proton pump inhibitor 10/11/2017 CVA (cerebral infarction) 01/14/2014 Diabetic eye exam ([facility]) 01/14/[address] Sanchez last done 03/02/2019 Diabetic foot ([facility]) 01/14/[address] Martins Extrapyramidal [...] 04/16/2014 Major depressive disorder, recurrent episode, moderate ([facility]) 04/25/2015 On disability Migraine without aura and without status migrainosus, not intractable 04/28/[address] Calderón Mixed hyperlipidemia 01/14/2014 Mixed incontinence urge and stress (male)(female) 07/25/2018 Morbid obesity due to excess calories ([facility]) 10/27/2016 Muscle weakness (generalized) 07/25/2018 [...] WNL 2D ECHO (EXEP) 01/14/2014 EF=65% Trival NH, TI, PI, LA enlarged. CARPAL TUNNEL Bilateral 08/28 and 09/25 COLONOSCOPY FLX DX W/COLLJ SPEC WHEN PFRMD 2011 [facility] Colonoscopy, no polyps repeat 10 yrs CRYOCAUTERY [...] 1 capsule by mouth twice daily. Per Dr. Stephane Whipple apixaban (ELIQUIS) 5 mg tab(s) Take 1 tablet by mouth twice daily. Per CardioAlexandr fludrocortisone (FLORINEF) 0.1 mg tablet Take 1 tablet by mouth once daily. Per Dr. Stephane Whipple melatonin 10 mg cap Take 1 capsule by mouth daily at bedtime. Per Dr. Stephane Whipple metoprolol tartrate, short acting, (LOPRESSOR) 25 mg [...] Past Histories independently gathered by the clinical senior technical support analyst and the remaining scribed note accurately describes my personal service to the patient. Medical Decision Making: Problems: Low: Acute, uncomplicated illness or injury Risk: Moderate: Drug management Medical Decision Making Level: 3 - Low Azam Fam MD The documentation for this note was completed by Carol Armenta Ma acting as scribe for Azam Fam MD. October 04, 2022 6:20 PM. Carol Armenta Ma documented in this encounterTrihealth03-20-2023 Miscellaneous Notes* Telephone Encounter - Azam Fam [...] face last night 6. ITCHING: Reports itching 04/26. 7. PAIN: - NONE (0): no pain - MILD (1-3): doesn't interfere with normal activities - MODERATE (4-7): interferes with normal activities or awakens from sleep - SEVERE (8-10): excruciating pain, unable to do any normal activities 8/10 for pain constant itching. 8. OTHER SYMPTOMS: Face swelling and ear pain. 9. : Postmenopausal Protocols used: Rash or Redness - [id number] documented in this encounterTrihealth03-18-2023 History of Present illness Narrative* Rajani Granger MA - 10/02/2022 9:14 AM EDT Scan on 09/29/2022 1:13 PM by External Provider: Consultation - Neurology Rajani Granger MA documented in this encounterTrihealth03-03-2023 History of Present illness Narrative* Rajani Granger MA - 09/17/2022 2:43 PM EST Scan on 09/12/2022 11:23 AM by External Provider: Consultation - Emergency Medicine Rajani Granger MA documented in this encounterTrihealth03-02-2023 Miscellaneous Notes* Telephone Encounter - Ladi Khan [...] REPLY TO THIS MESSAGE. documented in this [facility]01-19-2023 Instructions* Patient Instructions* Dennys Pool - [...] (or decreased sensation in your feet) a manager document control should always cut your toenails. Be Careful [...] Go to your health care provider or manager document control to treat these conditions. documented in this encounterTrihealth01-19-2023 History of Present illness Narrative* Dennys Pool [...] toe nail cracked today. documented in this encounterTrihealth01-11-2023 Miscellaneous Notes* Telephone Encounter - JUDIE Goldstein - 07/28/2022 11:56 AM EST [facility] Transportation resource list mailed to patient home. * Telephone Encounter - JUDIE Goldstein - 07/23/2022 3:09 PM EST Sw received message that patient had called in to office and was having to cancel her upcoming eye appt due to no manager case to assist with ride to appts. Aaron left message for patient that she would reach out to patient next week and discuss below manager casesocial science manager from [facility], and remind patient of [facility] member ride services. * Telephone Encounter - JUDIE Goldstein - 07/23/2022 11:24 AM EST Aaron left patient message to return Sw call. Aaron following up with patient regarding below manager casesocial science manager. * Telephone Encounter - JUDIE Goldstein - 07/23/2022 9:27 AM EST Aaron spoke with Steven,[facility], in regards to patient interest in manager case. Steven notes that patient manager case was one the had left the agency. There is a wait list at this time forcase management services. Aaron noted that patient had expressed that she had benefited from manager case in the past. Was beneficial to patient regarding transportation and coordination of mental health and medical appts. Steven notes that she will make note of patient interest in being assigned a manager case, and will work with counseling services to make sure patient is on wait list. * Telephone Encounter - JUDIE Goldstein - 07/21/2022 9:54 AM EST Steven-[facility] Medical Records left Aaron a message asking that Sw refax consent for release. Steven notes that release came through a little to dark and was hard to read. Aaron faxed release to [phone]. * Telephone Encounter - JUDIE Goldstein - 07/09/2022 8:56 AM EST Aaron called [facility] to check and see if they received consent for release that Aaron faxedon 07/07/22. Steven-Medical Records noted that she did not see it scanned to chart. 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 AARON notes she will be on vacation next week and will call to check on release when she is back in the office. Aaron interested in status of patient and having manager case. * Telephone Encounter - JUDIE Goldstein - 07/07/2022 12:37 PM EST Aaron received consent for release to be able to coordinate patient services with [facility]. Aaron will fax consent form to [facility] fax#[phone]. documented in this encounterTrihealth01-10-2023 Miscellaneous Notes* Telephone Encounter - JUDIE Goldstein - 07/27/2022 2:59 PM EST See Sw note 07/07/22. Sw spoke to patient and let her know that Sw has spoken with [facility] and noted that patient had expressed to this SW interest in being assigned to a manager case, there is a wait list for case management. Aaron reviewed with patient using her insurance-[employer] for rides to medical appts. Sw noted patient would need to call member services number on card to schedule ride. Patient states that she is newto [employer]. Would like information about their ride services and [employer] ride program. Sw noted that she would look into printing [...] Please call and advise. documented in this encounterTrihealth12-29-2022 History of Present illness Narrative* Meagan Yusuf PA-C - 07/15/2022 1:54 PM EST Chief Complaint Patient presents with: Recheck: Patient is here for follow up on legs cramps HPI Pernell Rodriguez is a 62 year old female who presents here today for Above Complaints.. [facility] and had complaints of leg cramp. Patient [...] Chest pain 02/14/[address] Jacob in [facility]. Had a normal cardiac CTA in 2009 with no calcium. Chronic back pain greater than 3 months duration 04/02/2015 Chronic insomnia 03/12/2020 Ilya Calderón ([facility]) on melatonin. Chronic obstructive pulmonary disease ([facility]) 04/25/2015 Chronic pain 01/14/2014 Constipation 02/12/2014 [place] or callus 11/16/2015 Current use of proton pump inhibitor 10/11/2017 CVA (cerebral infarction) 01/14/2014 Diabetic eye exam ([facility]) 01/14/[address] Sanchez last done 03/02/2019 Diabetic foot ([facility]) 01/14/[address] Martins Extrapyramidal [...] 04/16/2014 Major depressive disorder, recurrent episode, moderate ([facility]) 04/25/2015 On disability Migraine without aura and without status migrainosus, not intractable 04/28/[address] Calderón Mixed hyperlipidemia 01/14/2014 Mixed incontinence urge and stress (male)(female) 07/25/2018 Morbid obesity due to excess calories ([facility]) 10/27/2016 Muscle weakness (generalized) 07/25/2018 [...] WNL 2D ECHO (EXEP) 01/14/2014 EF=65% Trival NH, TI, PI, LA enlarged. CARPAL TUNNEL Bilateral 08/28 and 09/25 COLONOSCOPY FLX DX W/COLLJ SPEC WHEN PFRMD 2011 [facility] Colonoscopy, no polyps repeat 10 yrs CRYOCAUTERY [...] month. Meagan Yusuf PA-C documented in this encounterTrihealth12-29-2022 Miscellaneous Notes* Telephone Encounter - Rajani Granger MA - 07/15/2022 1:04 PM EST Paperwork was completed twice 06/14/2022 and 06/15/2022 and faxed. Paperwork was in scanning. Refaxed. Rajani Granger MA * Telephone Encounter - Caterina Salazar RN - 07/15/2022 9:58 AM EST [facility] [employer] called and reports they had sent over a fax for incontinence supplies. Had herre-fax them to Meagan Yusuf NP at [phone]. Please fill out and send back. documented in this encounterTrihealth12-02-2022 Miscellaneous Notes* Telephone Encounter - JUDIE Goldstein - 06/18/2022 11:11 AM EST Sw spoke with patient regarding manager case need. Patient reports that she used to have a manager case through [facility]. Patient notes that her manager case that she has had recently left the agency and now she does not have manager case. Sw notes that for this SW to be able to speak with [facility] in regards to manager case need, patient would have to sign consent form.Sw will mail out HIPPA/Consent form to share with [facility] regarding patient needs. Patient notes that manager case would always assist patient with rides or coordinating rides to healthcare appts. Patient also notes that she has a nurse coming out to see her on 06/24/22 from [facility] for a home assessment. Patient is going to ask the nurse for any assistance that could be provided to repairher back steps/add safety equipment to her home. Patient notes that she will ask [facility] manager case about transportation assistance as well. Patient notes that she will sign release form when she receives it and send it back to to help coordinate services with [facility]. * Telephone Encounter - JUDIE Goldstein - 06/17/2022 10:22 AM EST Sw left 2nd message to have call returned to discuss patient social service needs. Aaron will try callagain tomorrow 06/18 at 11am. * Telephone Encounter - JUDIE Goldstein - 06/14/2022 8:59 AM EST Sw left message for patient to return SW call to discuss manager caseafloat cryptologic manager needs for help with appts. documented in this encounterTrihealth11-28-2022 Miscellaneous Notes* Telephone Encounter - Homer Bradford [...] appointment on 06/09/2022 be sent in to [facility]. Reviewed OV notes with no medication [...] about. Shanti Monreal RN documented in this encounterTrihealth11-23-2022 History of Present illness Narrative* Homer Bradford MD - 06/09/2022 2:40 PM EST Chief Complaint Patient presents with: Leg Cramps: Patient has been having legs cramps and swelling. LI Rodriguez is a 62 year old female [...] missing appointments due to not having a social work associate working with her. Past medical history, appointments, medications, allergies reviewed. Previous Medical History PAST MEDICAL HISTORY Diagnosis Date ASHD (arteriosclerotic heart disease) 10/25/[address] Goins Bilateral leg edema 04/25/2015 Bipolar affective disorder (HCC) 04/25/[address] Colindres Chest pain 02/14/[address] Jacob in [facility]. Had a normal cardiac CTA in 2009 with no calcium. Chronic back pain greater than 3 months duration 04/02/2015 Chronic insomnia 03/12/2020 Ilya Calderón ([facility]) on melatonin. Chronic obstructive pulmonary disease (HCC) 04/25/2015 Chronic pain 01/14/2014 Constipation 02/12/2014 [place] or callus 11/16/2015 Current use of proton pump inhibitor 10/11/2017 CVA (cerebral infarction) 01/14/2014 Diabetic eye exam ([facility]) 01/14/[address] Sanchez last done 03/02/2019 Diabetic foot ([facility]) 01/14/[address] Martins Extrapyramidal [...] 04/16/2014 Major depressive disorder, recurrent episode, moderate ([facility]) 04/25/2015 On disability Migraine without [...] WNL 2D ECHO (EXEP) 01/14/2014 EF=65% Trival NH, TI, PI, LA enlarged. CARPAL TUNNEL Bilateral 08/28 and 09/25 COLONOSCOPY FLX DX W/COLLJ SPEC WHEN [facility]FRMD 2011 [facility] Colonoscopy, no polyps repeat 10 yrs CRYOCAUTERY [...] tablet by mouth once daily. Per Alexandr sorto blood sugar diagnostic (BLOOD GLUCOSE TEST) test strip Test blood sugar(s) 1 times daily. Dx: Type 2 DM - Controlled E11.9 Insulin: No Lancets lancets Test blood sugar(s) 1 times daily. Dx: Type 2 DM - Controlled E11.9 Insulin: No citalopram hydrobromide (CELEXA) 10 mg tablet Take 1 tablet by mouth once daily. Per psychDr. Negrete amantadine HCl (SYMMETREL) 100 mg capsule Take 1 capsule by mouth twice daily. Per NeuroDr. Calderón apixaban (ELIQUIS) 5 mg tab(s) Take 1 tablet by mouth twice daily. Per CardioAlexandr fludrocortisone (FLORINEF) 0.1 mg tablet Take 1 tablet by mouth once daily. Per NeuroDr. Calderón melatonin 10 mg cap Take 1 capsule by mouth daily at bedtime. Per NeuroDr. Calderón metoprolol tartrate, short acting, (LOPRESSOR) 25 [...] symmetric. Sensation to light touch and crainal [id number] intact.. Health Maintenance List COVID-19 VACCINE(1) Never [...] Abs Lymph 1.00 - 4.00 k/uL 2.67 [place]% % 9.2 Abs [place] <0.87 k/uL 0.79 [place]% % 2.8 Abs [...] appt I addressed this with the patient's social work associate and was never accomplished. 4. Diabetic foot [...] stable today - management per neuro: Dr. Stephane Ruiz - PRIMARY CARE SOCIAL WORK CONSULT 8. [...] ICD10: I25.10 - management per Cardio: Fish [employer] SUPERVISOR - PRIMARY CARE SOCIAL WORK CONSULT - [...] - management per renal: Dr. Bettencourt - [facility] SOCIAL WORK CONSULT - CBC + DIFF 16. History of CVA (cerebrovascular accident) - ICD9: V12.54, ICD10: Z86.73 - no new issues or changes in Tx. 17. Mixed incontinence urge and stress (male)(female) - ICD9: 788.33, ICD10: N39.46 Management per Urology: Dr. Alba - [facility] SOCIAL WORK CONSULT - MEDICAL SUPPLY 18. [...] - PRIMARY CARE SOCIAL WORK CONSULT 22. [place] or callus - ICD9: 700, ICD10: L84 [...] routine Homer Bradford MD documented in this encounterTrihealth10-19-2022 Miscellaneous Notes* Telephone Encounter - Mary Ann Rodriguez KRISTAL - 05/05/2022 1:44 PM EDT Patient has [...] Mary Ann Rodriguez LPN documented in this encounterTrihealth10-17-2022 Miscellaneous Notes* Telephone Encounter - Rajani Granger [...] receive it please call her back at [phone]. documented in this encounterTrihealth08-01-2022 Miscellaneous Notes* Telephone Encounter - Homer Bradford MD - 02/15/2022 2:23 PM EDT The following approved medication requests have been transmitted electronically. Signed Prescriptions Disp Refills furosemide (LASIX) 20 mg tablet 30 tablet 3 Sig: Take 1 tablet by mouth once daily. Per Alexandr sorto: No Authorizing Provider: HOMER BRADFORD MD * Telephone Encounter - Rajani Granger MA - 02/15/2022 8:[address] Bradford we refilled her last prescription on 12/07/2021. Result note on 12/06/2021 indicates that we changed her medication. 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 * Telephone Encounter - Mary Ann Rodriguez LPN - 02/12/2022 3:30 PM EDT Patient has been identified by name and date of : Yes Pharmacy phones for refill(s): Pending Prescriptions Disp Refills FUROSEMIDE 20 MG TABLET 30 tablet 1 Sig: Take 1 tablet by mouth once daily. Per Alexandr sorto: No Date of last office visit in [...] Mary Ann Rodriguez LPN documented in this encounterTrihealth07-29-2022 History of Present illness Narrative* Dennys Pool - 02/12/2022 2:39 PM EDT Last saw [...] manger. Kim Kiran LPN documented in this encounterTrihealth07-29-2022 Instructions* Patient Instructions* Dennys Pool - 02/12/2022 2:39 PM EDT Thank you for choosing the [facility] for your acute care needs. [...] physician or booking an appointment, please call [phone] or speak with any Patient Call Specialist. Hours: Tuesday through Tuesday 7:30 am to [...] (or decreased sensation in your feet) a manager document control should always cut your toenails. Be Careful [...] Go to your health care provider or manager document control to treat these conditions. documented in this encounterTrihealth07-22-2022 Miscellaneous Notes* Telephone Encounter - Aspen Bell LPN - 02/05/2022 10:50 AM EDT Pt notified of same. Aspen Bell LPN * Telephone Encounter - Meagan Yusuf PA-C - 02/05/2022 9:49 AM EDT Potassium is back in normal range now. Meagan Yusuf PA-C documented in this encounterTrihealth06-20-2022 Miscellaneous Notes* Telephone Encounter - Rodger Walters [...] Aspen Bell LPN * Telephone Encounter - Asepn Bell LPN - 12/25/2021 11:59 AM EDT Left additional message for pt to contact office. Aspen Bell LPN * Telephone Encounter - Rajani Granger MA - 12/21/2021 9:45 AM EDT Left additional message for patient to contact office. Also sent mychart message. Rajani Granger MA * Telephone Encounter [...] RN - 12/15/2021 2:53 PM EDT Blanca PRIETOwith [facility] calls to let provider [...] time. Shanti Monreal RN documented in this encounterTrihealth06-13-2022 Miscellaneous Notes* Telephone Encounter - Mary Ann Rodriugez LPN - 12/28/2021 4:19 PM EDT Patient returned call and went over results, notes from Meagan MAY with repeating several times until she understood. Aware rx to pharmacy. Patient said it takes [facility] about 4 days to get rxto her. [...] levels in 10-14 days. documented in this encounterTrihealth06-07-2022 Miscellaneous Notes* Telephone Encounter - Aspen Bell LPN - 12/22/2021 10:16 AM EDT Pt notified of same. Aspen Bell LPN * Telephone Encounter - Meagan Yusuf PA-C - 12/21/2021 2:43 PM EDT The potassium labs were canceled by the lab due to be hemolyzed. I was not notified by lab for thisso needs redone. Cinthyary. Meagan Yusuf PA-C * Telephone Encounter - Mary Ann Rodriguez LPN - 12/21/2021 2:11 PM EDT Patient calling asking for her repeat lab results, potassium. Please advise BASIC METABOLIC PNL Order: [id number] Status: Final result Visible to patient: Yes [...] 97 CM 130 High CM Comment: The [place] [employer] (ADA) provides guidance for cutoff [...] Standards of Medical Care in Diabetes 2016, [place] [employer]. Diabetes Care. 2016.39(Suppl 1). BUN [...] not accurately reflect actual GFR. Resulting Agency CCM [facility] CCM documented in this encounterTrihealth06-06-2022 Hospital Discharge instructions Patient Education 12/21/2021 17:06:55 [...] large amounts of blood in stool Seizure [id number] [employer]. [address] [place] [address]. All rights reserved. This information is not intended as a substitute for professional medical care. Always follow yourhealthcare professional's instructions. Follow Up Care 12/21/2021 15:38:28 With:JOVANA CHINO MD Address: [address] [place] [address]- When:2-4 days With:HOMER BRADFORD MD Address: [address] [place] [address]- When:2-4 days [facility] 06-01-2022 Miscellaneous Notes* Telephone Encounter - Erwin Harvey RN - 12/16/2021 11:41 AM EDT Patient returned call and given provider's message below with verbalized understanding. Faxed referral, lab results, ov notes to Dr. Bettencourt - fax # [phone]. Patient reports she will need to callher [...] want her to see Dr. Bettencourt in [place] a kidney specialist. Order placed. Her potassium was slightly low and want to repeat. Order placed. documented in this encounterTrihealth05-27-2022 Miscellaneous Notes* Telephone Encounter - Carlota Baez LPN - 12/11/2021 4:58 PM EDT printed order from [facility] completed and faxed to number given. * Telephone Encounter - Erwin Harvey RN - 12/11/2021 2:41 PM EDT Jessica- radiology [facility]- asking Dr. Dodd to please send new order for the MBSS with speech therapy. Please fax to [phone] * Telephone Encounter - Brianne Max LPN [...] is done with ST. documented in this encounterTrihealth05-23-2022 Miscellaneous Notes* Telephone Encounter - Mary Ann Rodriguez LPN - 12/07/2021 11:19 AM EDT Patient returned call and went over results, notes from Dr rBadford with understanding. Repeated directions so patient could [...] 2 weeks. Order placed. documented in this encounterTrihealth05-18-2022 Miscellaneous Notes* Telephone Encounter - Rodger Walters Ma - 12/02/2021 1:45 PM EDT Pt notified via [employer]. * Telephone Encounter - Priyanka Chavez RN [...] Dr Nisha Angeles (bipolar) Citalopram (depression) Cardio: Alexandr Metoprolol (HTN and A. Fib) Furosamide (edema) Eliquis (for her A. Fib) Urology: Dr. Anjali Black ( UTI's) meds below were filled by [facility] Aldactone Metformine Hyoscyamine Omeprazole Signed Prescriptions Disp Refills citalopram hydrobromide (CELEXA) 10 mg tablet Sig: Take 1 tablet by mouth once daily. Per psych, Dr. Nisha NEWMAN: No Authorizing Provider: HOMER BRADFORD amantadine HCl (SYMMETREL) 100 mg capsule Sig: Take 1 capsule by mouth twice daily. Per NeuroDr. Stephane: No Authorizing Provider: HOMER BRADFORD apixaban (ELIQUIS) 5 mg tab(s) Sig: Take 1 tablet by mouth twice daily. Per CardioAlexandr: No Authorizing Provider: HOMER BRADFORD fludrocortisone (FLORINEF) 0.1 mg tablet Sig: Take 1 tablet by mouth once daily. Per Neuro, Dr. Stephane PATY: No Authorizing Provider: HOMER BRADFORD furosemide (LASIX) [...] 1 tablet by mouth twice daily. Per Alexandr Sorto PATY: No Authorizing Provider: HOMER BRADFORD omeprazole (PRILOSEC) 40 mg capsule 30 capsule 5 Sig: Take 1 capsule by mouth once daily. PATY: No Authorizing Provider: HOMER BRADFORD QUEtiapine ER (SEROQUEL XR) 200 mg 24 hr tablet Sig: Take 1 tablet by mouth twice daily. Per psych, Dr. Nisha NEWMAN: No Authorizing Provider: HOMER BRADFORD spironolactone (ALDACTONE) 25 mg tablet 30 tablet 5 Sig: Take 1 tablet by mouth once daily. PATY: No Authorizing Provider: HOMER BRADFORD topiramate (TOPAMAX) 25 mg tablet Sig: Take 1 tablet by mouth twice daily. Per Neurology, Dr. Stephane NEWMAN: No Authorizing Provider: HOMER BRADFORD lovastatin (MEVACOR) 20 mg tablet 30 tablet 5 Sig: TAKE 1 TABLET BY MOUTH DAILY AT BEDTIME. FOR CHOLESTEROL. PATY: No Authorizing Provider: HOMER BRADFORD mirabegron (MYRBETRIQ) 25 mg Tb24 30 tablet 1 Sig: Take 1 tablet by mouth once daily. Per Urology Dr. Anjali NEWMAN: No Authorizing Provider: HOMER BRADFORD * Telephone [...] you. Priyanka Chavez RN documented in this encounterTrihealth05-13-2022 History of Present illness Narrative* Homer Bradford [...] overall doing okay. [facility] and not being able to walk. Working on getting back into her speciality providers. These were reviewed with her director of casework department whowas with her during appt today. Past medical history, appointments, medications, allergies reviewed. Previous Medical History PAST MEDICAL HISTORY Diagnosis Date ASHD (arteriosclerotic heart disease) 10/25/[address] Goins Bilateral leg edema 04/25/2015 Bipolar affective disorder (HCC) 04/25/[address] Colindres Chest pain 02/14/[address] Jacob in [facility]. Had a normal cardiac CTA in 2009 with no calcium. Chronic back pain greater than 3 months duration 04/02/2015 Chronic insomnia 03/12/2020 Ilya Calderón ([facility]) on melatonin. Chronic obstructive pulmonary disease (HCC) 04/25/2015 Chronic pain 01/14/2014 Constipation 02/12/2014 [place] or callus 11/16/2015 Current use of proton pump inhibitor 10/11/2017 CVA (cerebral infarction) 01/14/2014 Diabetic eye exam ([facility]) 01/14/[address] Sanchez last done 03/02/2019 Diabetic foot ([facility]) 01/14/[address] Martins Extrapyramidal [...] 04/16/2014 Major depressive disorder, recurrent episode, moderate ([facility]) 04/25/2015 On disability Migraine without aura and without status migrainosus, not intractable 04/28/[address] Calderón Mixed hyperlipidemia 01/14/2014 Mixed incontinence urge and stress (male)(female) 07/25/2018 Morbid obesity due to excess calories ([facility]) 10/27/2016 Muscle weakness (generalized) 07/25/2018 [...] WNL 2D ECHO (EXEP) 01/14/2014 EF=65% Trival NH, TI, PI, LA enlarged. CARPAL TUNNEL Bilateral [...] mouth once daily. Per Neuro, Dr. Calderón furosemide (LASIX) 20 mg tablet Take 1 tablet by mouth twice daily. Per cardio, Fish hyoscyamine SR (LEVBID) 0.375 mg 12 hr tablet Take 1 tablet by mouth twice daily. melatonin 10 mg cap Take 1 capsule by mouth daily at bedtime. Per Neuro, Dr. Calderón metFORMIN (GLUCOPHAGE) 500 mg tablet Take [...] Take 1 tablet by mouth twice daily. Michel, Alexandr (Patient not taking: Reported on 11/27/2021 ) [...] Abs Lymph 1.00 - 4.00 k/uL 2.67 [place]% % 9.2 Abs [place] <0.87 k/uL 0.79 Eosin% % 2.8 Abs [...] complication, with long-term current use of insulin ([facility]) - ICD9: 250.00, V58.67, ICD10: [...] PE Homer Bradford MD documented in this encounterTrihealth05-05-2022 Miscellaneous Notes* Telephone Encounter - Carlota Baez [...] and would like this order sent to [facility] please.They also would like Nicolasa contacted to schedule this and her number has been added to the account. Could we please forward that information to [facility]. documented in this encounterTrihealth04-05-2022 Miscellaneous Notes* Telephone Encounter - Amanda Correia Ma - 10/20/2021 1:55 PM EDT Left detailed message on nicolasa confidnetial Amanda Correia Ma * Telephone Encounter - Homer Bradford MD - 10/20/2021 12:22 PM EDT Script for glucose meter ready to be faxed to [facility]. Advise patient and director of casework department Nicolasa that Pernell's respiratory disease is managed per her ship officer Dr. Wilfredo Christopher and need to contact him for the nebulizer order. * Telephone Encounter - Hannah Kwon LPN - 10/20/2021 11:25 AM EDT Pt was in [facility] for respiratory failure, was then sent to [facility] [place] until 10/07/21. Pt on line as well as director of casework department Nicolasa requesting an order for a nebulizer & a glucometer, pending. Pt will use [employer]. Hannah Kwon LPN documented in this encounterTrihealth04-04-2022 Miscellaneous Notes* Telephone Encounter - Carlota Baez LPN - 10/19/2021 10:47 AM EDT When pt see Dr. Alcocer 10/14/21 he completed rx for grab bars and toilet seat. They were faxed to [facility]. rec'd fax from [employer] saying they do not provide these. Message left to pt with this info and requested return call to which [employer] company she would like them sent to now. documented in this encounterTrihealth04-01-2022 Miscellaneous Notes* Telephone Encounter - Aspen Bell [...] to just get generic form of OTC [place] nasal spray. * Telephone Encounter - Umm York RN - 10/15/2021 1:38 PM EDT Yanna from [facility] calls and states that patient's insurance will not cover sodium chloride 0.9% solution. Yanna states that insurance will cover sodium chloride 1% solution 30 mL bottle. Yanna asking if provider wants to change prescription to this? Please review and advise, Umm York, RN documented in this encounterTrihealth03-31-2022 Miscellaneous Notes* Telephone Encounter - Ana Cardoza LPN - 10/15/2021 11:40 AM EDT Yanna with [facility] calling to request for pen needles for pt. Patient has been identified by name and date of : Yes Patient phones for refill(s): Pending Prescriptions Disp Refills PEN NEEDLE, DIABETIC 31 GAUGE X 5/16 100 Each 11 Sig: Use one needle per dose per sliding scale Date of last office visit in primary care: 10/14/21 next apt 11/27/21 Last 2 Encounter Wt Readings: Date: Wt: 10/14/2021 108.7 kg (239 lb 9.6 oz) 07/21/2021 122 kg (269 lb) Previous labs/tests for medication: Diabetes: Hemoglobin A1C (%) Date Value 05/29/2021 6.0 11/20/2020 6.1 Please advise. Thank you. Ana Cardoza LPN documented in this encounterTrihealth03-30-2022 History of Present illness Narrative* Dick Dodd MD - 10/14/2021 4:37 PM EDT This note was created using [employer]. Subjective Pernell Rodriguez is a 61 year old female. PCP Homer Bradford MD. 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 [facility]/21 with limited planning and no prescriptions. She was admitted 09/07/21 after admission at [facility] on 08/25 for bilateral pneumonia, respiratory failure with hypoxia, metabolic encephalopathy, STEVEN on CKD, atrial fibrillation, bipolar disorder, and diabetes mellitus. She was much better and off oxygen. She was on thickened liquids at the [facility] but since being back home, she was back on regular food. She saw pulmonary before her [place] from the [place] and her respiratory status was assessed to have improved. She needed DME due to ongoing general weaknessand limited mobility in the home. No home health or home PT was ordered. 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 Review of Systems Constitutional: Positive for fatigue. [...] Major Depressive Disorder, Recurrent Episode, Moderate (Hcc) [place] Or Callus Nodule of Left Lung Morbid [...] ICD10: R53.81 - I'll suggest HH, PT, CERTIFIED NUTRITIONIST be arranged by PCP. - EXTRA WIDE/HEAVY [...] E11.9, Z79.4 The patient is new to vt. 7. Gastroesophageal reflux disease without esophagitis - [...] scheduled. Dick Dodd MD documented in this encounterTrihealth05-06-2021 History of Present illness Narrative* Karen Rodriguez, [...] 20, 2020 4:06 PM documented in this encounterTrihealth12-22-2017 History of Past illness Narrative* Problem Noted Date Resolved Date Urinary incontinence 07/08/2017 11/28/2021 Overview: Seeing Dr. Anjali Benjamin adult exam 10/27/2016 10/15/2021 Overview: last done: 05/29/2021 documented as of this encounter (statuses as of 11/29/2021) [facility] History of Past illness Narrative* Problem Noted Date Resolved Date Urinary incontinence 07/08/2017 11/28/2021 Overview: Seeing Dr. Anjali Benjamin adult exam 10/27/2016 10/15/2021 Overview: last done: 05/29/2021 documented as of this encounter (statuses as of 12/02/2021) [facility] History of Past illness Narrative* Problem Noted Date Resolved Date Urinary incontinence 07/08/2017 11/28/2021 Overview: Seeing Dr. Anjali Benjamin adult exam 10/27/2016 10/15/2021 Overview: last done: 05/29/2021 documented as of this encounter (statuses as of 12/07/2021) [facility] History of Past illness Narrative* Problem Noted Date Resolved Date Urinary incontinence 07/08/2017 11/28/2021 Overview: Seeing Dr. Anjali Benjamin adult exam 10/27/2016 10/15/2021 Overview: last done: 05/29/2021 documented as of this encounter (statuses as of 12/11/2021) [facility] History of Past illness Narrative* Problem Noted Date Resolved Date Urinary incontinence 07/08/2017 11/28/2021 Overview: Seeing Dr. Anjali Benjamin adult exam 10/27/2016 10/15/2021 Overview: last done: 05/29/2021 documented as of this encounter (statuses as of 12/16/2021) [facility] History of Past illness Narrative* Problem Noted Date Resolved Date Urinary incontinence 07/08/2017 11/28/2021 Overview: Seeing Dr. Anjali Benjamin adult exam 10/27/2016 10/15/2021 Overview: last done: 05/29/2021 documented as of this encounter (statuses as of 12/22/2021) [facility] History of Past illness Narrative* Problem Noted Date Resolved Date Urinary incontinence 07/08/2017 11/28/2021 Overview: Seeing Dr. Anjali Benjamin adult exam 10/27/2016 10/15/2021 Overview: last done: 05/29/2021 documented as of this encounter (statuses as of 12/28/2021) [facility] History of Past illness Narrative* Problem Noted Date Resolved Date Urinary incontinence 07/08/2017 11/28/2021 Overview: Seeing Dr. Anjali Benjamin adult exam 10/27/2016 10/15/2021 Overview: last done: 05/29/2021 documented as of this encounter (statuses as of 01/04/2022) [facility] of Past illness Narrative* Problem Noted Date Resolved Date Urinary incontinence 07/08/2017 11/28/2021 Overview: Seeing Dr. Anjali Benjamin adult exam 10/27/2016 10/15/2021 Overview: last done: 05/29/2021 documented as of this encounter (statuses as of 02/05/2022) [facility] History of Past illness Narrative* Problem Noted Date Resolved Date Urinary incontinence 07/08/2017 11/28/2021 Overview: Seeing Dr. Anjali Benjamin adult exam 10/27/2016 10/15/2021 Overview: last done: 05/29/2021 documented as of this encounter (statuses as of 02/13/2022) [facility] of Past illness Narrative* Problem Noted Date Resolved Date Urinary incontinence 07/08/2017 11/28/2021 Overview: Seeing Dr. Anjali Benjamin adult exam 10/27/2016 10/15/2021 Overview: last done: 05/29/2021 documented as of this encounter (statuses as of 02/15/2022) [facility] of Past illness Narrative* Problem Noted Date Resolved Date Urinary incontinence 07/08/2017 11/28/2021 Overview: Seeing Dr. Anjali Benjamin adult exam 10/27/2016 10/15/2021 Overview: last done: 05/29/2021 documented as of this encounter (statuses as of 05/03/2022) [facility] of Past illness Narrative* Problem Noted Date Resolved Date Urinary incontinence 07/08/2017 11/28/2021 Overview: Seeing Dr. Alba Well adult exam 10/27/2016 10/15/2021 Overview: last done: 05/29/2021 documented as of this encounter (statuses as of 05/05/2022) [facility] of Past illness Narrative* Problem Noted Date Resolved Date Urinary incontinence 07/08/2017 11/28/2021 Overview: Seeing Dr. Alba documented as of this encounter (statuses as of 06/13/2022) [facility] of Past illness Narrative* Problem Noted Date Resolved Date Urinary incontinence 07/08/2017 11/28/2021 Overview: Seeing Dr. Alba documented as of this encounter (statuses as of 06/14/2022) [facility] of Past illness Narrative* Problem Noted Date Resolved Date Urinary incontinence 07/08/2017 11/28/2021 Overview: Seeing Dr. Alba documented as of this encounter (statuses as of 06/23/2022) [facility] of Past illness Narrative* Problem Noted Date Resolved Date Urinary incontinence 07/08/2017 11/28/2021 Overview: Seeing Dr. Alba documented as of this encounter (statuses as of 07/21/2022) [facility] of Past illness Narrative* Problem Noted Date Resolved Date Urinary incontinence 07/08/2017 11/28/2021 Overview: Seeing Dr. Alba documented as of this encounter (statuses as of 07/21/2022) [facility] of Past illness Narrative* Problem Noted Date Resolved Date Urinary incontinence 07/08/2017 11/28/2021 Overview: Seeing Dr. Alba documented as of this encounter (statuses as of 07/28/2022) [facility] of Past illness Narrative* Problem Noted Date Resolved Date Urinary incontinence 07/08/2017 11/28/2021 Overview: Seeing Dr. Alba documented as of this encounter (statuses as of 08/02/2022) [facility] of Past illness Narrative* Problem Noted Date Resolved Date Urinary incontinence 07/08/2017 11/28/2021 Overview: Seeing Dr. Alba documented as of this encounter (statuses as of 08/05/2022) [facility] of Past illness Narrative* Problem Noted Date Resolved Date Urinary incontinence 07/08/2017 11/28/2021 Overview: Seeing Dr. Alba documented as of this encounter (statuses as of 08/16/2022) [facility] of Past illness Narrative* Problem Noted Date Resolved Date Urinary incontinence 07/08/2017 11/28/2021 Overview: Seeing Dr. Alba documented as of this encounter (statuses as of 09/16/2022) [facility] of Past illness Narrative* Problem Noted Date Resolved Date Urinary incontinence 07/08/2017 11/28/2021 Overview: Seeing Dr. Alba documented as of this encounter (statuses as of 09/17/2022) [facility] of Past illness Narrative* Problem Noted Date Resolved Date Urinary incontinence 07/08/2017 11/28/2021 Overview: Seeing Dr. Alba documented as of this encounter (statuses as of 10/03/2022) [facility] of Past illness Narrative* Problem Noted Date Resolved Date Urinary incontinence 07/08/2017 11/28/2021 Overview: Seeing Dr. Alba documented as of this encounter (statuses as of 10/05/2022) [facility] of Past illness Narrative* Problem Noted Date Resolved Date Urinary incontinence 07/08/2017 11/28/2021 Overview: Seeing Dr. Alba documented as of this encounter (statuses as of 10/05/2022) [facility] of Past illness Narrative* Problem Noted Date Resolved Date Urinary incontinence 07/08/2017 11/28/2021 Overview: Seeing Dr. Alba documented as of this encounter (statuses as of 10/21/2022) [facility] of Past illness Narrative* Problem Noted Date Resolved Date Urinary incontinence 07/08/2017 11/28/2021 Overview: Seeing Dr. Alba documented as of this encounter (statuses as of 10/21/2022) [facility] of Past illness Narrative* Problem Noted Date Resolved Date Urinary incontinence 07/08/2017 11/28/2021 Overview: Seeing Dr. Alba documented as of this encounter (statuses as of 10/22/2022) [facility] of Past illness Narrative* Problem Noted Date Resolved Date Urinary incontinence 07/08/2017 11/28/2021 Overview: Seeing Dr. Alba documented as of this encounter (statuses as of 11/18/2022) [facility] of Past illness Narrative* Problem Noted Date Resolved Date Urinary incontinence 07/08/2017 11/28/2021 Overview: Seeing Dr. Alba documented as of this encounter (statuses as of 01/05/2023) [facility] of Past illness Narrative* Problem Noted Date Resolved Date Urinary incontinence 07/08/2017 11/28/2021 Overview: Seeing Dr. Alba documented as of this encounter (statuses as of 01/12/2023) [facility] of Past [facility] Narrative* Problem Noted Date Diagnosed Date Resolved Date Urinary incontinence 07/08/2017 Overview: Seeing Dr. Alba documented as of this encounter (statuses as of 02/03/2023) [facility] of Past illness Narrative* Problem Noted Date Diagnosed Date Resolved Date Urinary incontinence 07/08/2017 Overview: Seeing Dr. Alba documented as of this encounter (statuses as of 02/15/2023) [facility] of Past illness Narrative* Problem Noted Date Diagnosed Date Resolved Date Urinary incontinence 07/08/2017 Overview: Seeing Dr. Alba documented as of this encounter (statuses as of 02/20/2023) [facility] of Past illness Narrative* Problem Noted Date Diagnosed Date Resolved Date Urinary incontinence 07/08/2017 Overview: Seeing Dr. Alba documented as of this encounter (statuses as of 03/01/2023) [facility] of Past illness Narrative* Problem Noted Date Diagnosed Date Resolved Date Urinary incontinence 07/08/2017 022 Overview: Seeing Dr. Alba documented as of this encounter (statuses as of 03/01/2023) [facility] Past [facility] Narrative* Problem Noted Date Diagnosed Date Resolved Date Urinary incontinence 07/08/2017 Overview: Seeing Dr. Alba documented as of this encounter (statuses as of 03/11/2023) [facility] of Past [facility] Narrative* Problem Noted Date Diagnosed Date Resolved Date Urinary incontinence 07/08/2017 022 Overview: Seeing Dr. Alba documented as of this encounter (statuses as of 03/17/2023) [facility] of Past illness Narrative* Problem Noted Date Diagnosed Date Resolved Date Urinary incontinence 07/08/2017 Overview: Seeing Dr. Alba documented as of this encounter (statuses as of 03/29/2023) [facility] of Past illness Narrative* Problem Noted Date Diagnosed Date Resolved Date Urinary incontinence 07/08/2017 Overview: Seeing Dr. Alba documented as of this encounter (statuses as of 04/02/2023) [facility] of Past illness Narrative* Problem Noted Date Diagnosed Date Resolved Date Urinary incontinence 07/08/2017 Overview: Seeing Dr. Alba documented as of this encounter (statuses as of 04/29/2023) [facility] of Past illness Narrative* Problem Noted Date Diagnosed Date Resolved Date Urinary incontinence 07/08/2017 Overview: Seeing Dr. Alba documented as of this encounter (statuses as of 05/06/2023) [facility] of Past illness Narrative* Problem Noted Date Diagnosed Date Resolved Date Urinary incontinence 07/08/2017 Overview: Seeing Dr. Alba documented as of this encounter (statuses as of 05/13/2023) [facility] of Past illness Narrative* Problem Noted Date Diagnosed Date Resolved Date Urinary incontinence 07/08/2017 022 Overview: Seeing Dr. Alba documented as of this encounter (statuses as of 07/25/2023) [facility] of Past illness Narrative* Problem Noted Date Diagnosed Date Resolved Date Urinary incontinence 07/08/2017 Overview: Seeing Dr. Alba documented as of this encounter (statuses as of 09/19/2023) [facility] of Past illness Narrative* Problem Noted Date Diagnosed Date Resolved Date Urinary incontinence 07/08/2017 Overview: Seeing Dr. Alba documented as of this encounter (statuses as of 09/28/2023) [facility] of Past illness Narrative* Problem Noted Date Diagnosed Date Resolved Date Urinary incontinence 07/08/2017 022 Overview: Seeing Dr. Alba documented as of this encounter (statuses as of 09/29/2023) [facility] of Past illness Narrative* Problem Noted Date Diagnosed Date Resolved Date Urinary incontinence 07/08/2017 Overview: Seeing Dr. Alba documented as of this encounter (statuses as of 09/30/2023) [facility] of Past illness Narrative* Problem Noted Date Resolved Date Well adult exam 10/27/2016 10/15/2021 Overview: last done: 05/29/2021 documented as of this encounter (statuses as of 10/15/2021) [facility] of Past illness Narrative* Problem Noted Date Resolved Date Well adult exam 10/27/2016 10/15/2021 Overview: last done: 05/29/2021 documented as of this encounter (statuses as of 10/15/2021) [facility] of Past illness Narrative* Problem Noted Date Resolved Date Well adult exam 10/27/2016 10/15/2021 Overview: last done: 05/29/2021 documented as of this encounter (statuses as of 10/16/2021) [facility] of Past illness Narrative* Problem Noted Date Resolved Date Well adult exam 10/27/2016 10/15/2021 Overview: last done: 05/29/2021 documented as of this encounter (statuses as of 10/20/2021) [address]12-2017 History of Past illness Narrative* Problem Noted Date Resolved Date Well adult exam 10/27/2016 10/15/2021 Overview: last done: 05/29/2021 documented as of this encounter (statuses as of 10/22/2021) [facility] of Past [facility] Narrative* Problem Noted Date Resolved Date Well adult exam 10/27/2016 10/15/2021 Overview: last done: 05/29/2021 documented as of this encounter (statuses as of 11/19/2021) [facility] Author Dr. Pinto [facility] September 12, 2022 11:17am Note Date/Time September 12, 2022 11:16am [facility] Medical Records Department [address] [place] [address] Emergency Department Summary 09/12/22 MR#: [id number] Acct: [id number] Name: PERNELL RODRIGUEZ CHEKO Rep #:[id number] : 1960 62 From: Ortiz Pinto [...] as well. She denies any systemic symptoms. [facility] Medical History Acute respiratory failure with hypoxia [...] mg rectal suppository (Dulcolax (bisacodyl)) 10 mg AK DAILY PRN 09/28/21 [History Last Taken Unknown] [...] History (Reviewed 02/25/22 @ 13:59 by Taylor Julain CHILDREN'S LUNCHROOM SUPERVISOR, CHILDREN'S LUNCHROOM SUPERVISOR-C) Grandmother Cancer stomach Father Cancer lung Sister Breast cancer Surgical History (Reviewed 02/25/22 @ 13:59 by Taylor Julian CHILDREN'S LUNCHROOM SUPERVISOR, CHILDREN'S LUNCHROOM SUPERVISOR-C) H/O dilation and curettage H/O hand surgery [...] [Dulcolax (bisacodyl)] 10 mg suppository 10 mg AK DAILY PRN budesonide-formoterol [Symbicort] 160-4.5 mcg/actuation HFA aerosol inhaler 2 puff inhalation BID Qty: 1 3RF Rx Instructions: administer with spacer, rinse mouth after each use mirabegron 50 MG tablet extended release 24 hr 25 mg PO DAILY citalopram [Celexa] 10 mg Tablet 10 mg PO DAILY topiramate [Topamax] 25 mg Tablet 25 mg PO BID sodium chloride [Deep Sea Nasal] 0.65 % Aerosol,[place] 2 spray NASAL TID PRN PRN (Reason: [...] your Primary Care Provider. Call [facility] ([phone]) or report to the closest Emergency Room. Call 911 if necessary. 09/12/22 1117 <Electronically signed by Ortiz Pinto MD> Cosigner Signature (if applicable): CC: Dr. Homer Bradford MD ~ Signed [facility] Work Phone: Discharge summary Author Jennifer Alba [facility] November 24, 2023 11:45am Note Date/Time November 24, 2023 11:42a m [facility] Medical Records Department [address] [place] [address] Instructions for Home/Discharge Instructions 11/24/23 1141 MR#: [id number] Acct: [id number] Name: PERNELL RODRIGUEZ Rep #:[id number] : 1960 63 From: Jennifer Arthur PCP: Dr. Homer Bradford MD Status[place] [facility] [place]charge Instructions Diet Discharge Diet: No restrictions [...] Homer Bradford MD ~ Signed [facility] Work Phone: Discharge summary Author Peter Herbert [facility] Note Date/Time January 11, 2025 12:0 7pm [facility] Medical Records Department [address] [place] [address] Discharge Summary 01/11/25 1205 MR#: [id number] Acct: [id number] Name: PERNELL RODRIGUEZ Rep #:[id number] : 1960 64 From: Peter Arthur PCP: Dr. Homer Bradford MD Status:ADM IN Location: [facility] [id number] Providers Date of Admission: 01/08/25 Date of Discharge: 01/11/25 Primary Care Physician: Dr. Homer Bradford MD Consultations 01/08/25 20:32 Consult: Chrome Worker / Pulmonary Medicine Routine Consulting Provider: Intensivists/Pulmonary Med Reason for Consult: Sepsis, Encephalopathy, UTI EMERGENT Consult: No MD Notified: Yes Date Notified: 01/09/25 Time Notified: 08:00 Method of Notification: Verbal 01/10/25 08:29 Consult: Onc/Wound/toilet attendant Routine Comment: Reason for Consult:: Left lg worund, swelling/venous HTN Reason For Visit: SEPSIS UTI Diagnosis Discharge Diagnosis (1) Sepsis: Status: Acute Code(s): A41.9 - Sepsis, unspecified organism Plan Patient is a 64-year-old female who presented to [facility] ED on 01/08/2025 with altered mentation. 1. Sepsis suspected secondary to UTI ? Chrome Worker following. Met sepsis criteria on admit with [...] reportedly been staying with a friend in [place] recently and has been applying for housing. [...] Physician: Homer Bradford Performed By: Sintia Tavarez, TESSA, RVT D/C Instructions DC O2, CPAP, BIPAP [...] [Non-Staff] - 02/26/25 12:00 pm (Provide A Ride([phone]) will pick you up at 11-11:30, and will pick you up from [facility] at1pm after the appt.) Disposition Disposition (needs filled in before D/C Order can be placed): Home, Self Care Charges/Coding Visit Charges Inpatient E&M: 16120 Disch Hosp >30min 01/11/25 1207 <Electronically signed by Peter Herbert MD> Cosigner Signature (if applicable): CC: Dr. Homer Bradford MD; Dr. Peter Herbert MD~ Signed [facility] Work Phone: Evaluation + Plan note Future Appointments Appointment Date:06/21/2022 03:00:00 PM Scheduled Provider:RAJANI GOINS [facility] Diagnosis History of recent pneumonia- [...] constipation and diarrhea [facility]* Diagnosis Type 2 diabetes mellitus without complication, with long-term current use of insulin (HCC)- Primary Diabetic eye exam ([facility]) Type II or unspecified type [...] Coronary atherosclerosis of unspecified type of vessel, [place] or graft Chronic obstructive pulmonary disease, unspecified [...] and stress (male)(female) [facility]* Diagnosis Paroxysmal atrial fibrillation (HCC) Atrial fibrillation [facility]* Diagnosis Stage 3b chronic kidney disease (HCC)- Primary [facility]* Diagnosis Stage 3b chronic kidney disease (HCC)- Primary Hypokalemia Hypopotassemia [facility]* Diagnosis Onset Date Resolution Status Acute on chronic renal insufficiency chronic Acidosis, lactic resolved Acute hypotension resolved Bilateral interstitial pneumonia resolved Dehydration, moderate resolv ed Hypokalemia resolved Sepsis resolved Septic shock resolved Bipolar disorder chronic COPD (chronic obstructive pulmonary disease) [facility] Work Phone: Evaluation note* Diagnosis Hypokalemia- Primary Hypopotassemia [facility]* Diagnosis Hypokalemia- Primary Hypopotassemia [facility] Diagnosis Oropharyngeal dysphagia- Primary Dysphagia, oropharyngeal phase documented in this [facility]* Diagnosis Onychomycosis- Primary Dermatophytosis of nail Pain in toe of left foot Pain in limb Pain in toe of right foot Pain in limb Diminished pulses in lower extremity Other symptoms involving cardiovascular system Other diabetic neurological complication associated with type 2 diabetes mellitus ([facility]) [facility]* Diagnosis Onset Date Resolution Status Nicotine dependence, cigarettes, uncomplicated acute COPD (chronic obstructive pulmonary disease) chronic Obesity, morbid, BMI 40.0-49.9 [facility] Work Phone: Evaluation note* Diagnosis Onset Date Resolution Status Nicotine dependence, cigarettes, uncomplicated acute COPD (chronic obstructive pulmonary disease) chronic Obesity, morbid, BMI 40.0-49.9 chronic Smoking greater than 40 pack years acute Asthma-COPD overlap syndrome chronic Bipolar disorder [facility] Work Phone: Evaluation note* Diagnosis Well adult exam- Primary Routine general medical examination at a health care facility Type 2 diabetes mellitus without complication, with long-term current use of insulin ([facility]) Diabetic eye exam ([facility]) Type II or unspecified type diabetes mellitus without mention of complication, not stated as uncontrolled Diabetic foot ([facility]) Type II or unspecified type [...] obstructive pulmonary disease, unspecified COPD type (HCC) ASHD (arteriosclerotic heart disease) Coronary atherosclerosis of unspecified type of vessel, [place] or graft Paroxysmal atrial fibrillation (HCC) Atrial fibrillation Bilateral leg edema Edema Stage 3b chronic kidney disease ([facility]) History of CVA (cerebrovascular accident) Transient ischemic attack (TIA), and cerebral infarction without residual deficits Mixed incontinence urge and stress (male)(female) Incontinence of feces, unspecified fecal incontinence type Smoker Tobacco use disorder Bipolar affective disorder, remission status unspecified (HCC) Major depressive disorder, recurrent episode, moderate (HCC) Major depressive disorder, recurrent episode, moderate [place] or callus Corns and callosities Colon cancer screening Special screening for malignant neoplasms, colon Medication management Encounter for long-term (current) use of other medications Leg cramps Cramp of limb [facility]* Diagnosis Leg cramps- Primary Cramp of limb [facility]* Diagnosis Encounter for screening mammogram for breast cancer [facility]* Diagnosis Other diabetic neurological complication associated with type 2 diabetes mellitus (HCC)- Primary Onychomycosis Dermatophytosis of nail Pain in toe of left foot Pain in limb Pain in toe of right foot Pain in limb Hyperkeratosis Acquired keratoderma [facility]* Diagnosis Low vitamin B12 level Other B-complex deficiencies [facility] noteNo assessment information [facility]WSt. [facility] Work Phone: Evaluation note* Diagnosis Rash- Primary Rash and other nonspecific skin eruption [facility]* Diagnosis Migraine without aura and without status migrainosus, not intractable Migraine without aura, without mention of intractable migraine without mention of status migrainosus [facility]* Diagnosis Rash- Primary Rash and other nonspecific skin eruption Hives Urticaria, unspecified [facility]* Diagnosis Leg cramps- Primary Cramp of limb [facility]* Diagnosis Hordeolum externum of right lower eyelid- Primary Hordeolum externum Meibomian gland dysfunction (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 eyes Type 2 diabetes mellitus without retinopathy (HCC) Type II or unspecified type diabetes mellitus without mention of complication, not stated as uncontrolled Nuclear sclerosis of both eyes Presbyopia [facility]* Diagnosis Other diabetic neurological complication associated with type 2 diabetes mellitus (HCC)- Primary Onychomycosis Dermatophytosis of nail Pain in toe of left foot Pain in limb Pain in toe of right foot Pain in limb Hyperkeratosis Acquired keratoderma Diminished pulses in lower extremity Other symptoms involving cardiovascular system documented in this [facility]* Diagnosis Mixed hyperlipidemia- Primary Type 2 diabetes mellitus without complication, with long-term current use of insulin (HCC) Chronic obstructive pulmonary disease, unspecified COPD type (HCC) Morbid obesity due to excess calories (HCC) Stage 3b chronic kidney disease (HCC) Screening for colon cancer Special screening for malignant neoplasms, colon documented in this encounter [facility]* Diagnosis Onset Date Resolution Status Lung nodule acute Dyspnea chronic [facility] Work Phone: Evaluation note* Diagnosis Screening for colon cancer Special screening for malignant neoplasms, colon documented in this encounter [facility]* Diagnosis Encounter for screening mammogram for breast cancer documented in this encounter [facility]* Diagnosis Chronic pain of both shoulders- Primary Pain in joint, shoulder region Type 2 diabetes mellitus without complication, without long-term current use of insulin (HCC) Major depressive disorder, recurrent episode, moderate (HCC) Major depressive disorder, recurrent episode, moderate Gastroesophageal reflux disease without esophagitis Esophageal reflux Mixed hyperlipidemia documented in this encounter [facility]* Diagnosis Rotator cuff disorder, left- Primary Obesity, Class III, BMI >= 40 Morbid obesity documented in this encounter [facility]* Diagnosis Chronic pain of both shoulders Pain in joint, shoulder region documented in this encounter [facility] note* Diagnosis Type 2 diabetes mellitus with stage 3b chronic kidney disease, without long-term current use of insulin ([facility])- Primary Diabetic eye exam ([facility]) Type II or unspecified type diabetes mellitus without mention of complication, not stated as uncontrolled Mixed hyperlipidemia Hypotension, unspecified hypotension type ASHD (arteriosclerotic heart disease) Coronary atherosclerosis of unspecified type of vessel, [place] or graft Paroxysmal atrial fibrillation (HCC) Atrial fibrillation Bilateral leg edema Edema Gastroesophageal [...] incontinence urge and stress (male)(female) Diabetic foot (HCC) Type II or unspecified type diabetes mellitus with other specified manifestations, not stated as uncontrolled Obesity, Class III, BMI >= 40 Morbid obesity Encounter for screening mammogram for breast cancer documented in this encounter [facility]* Diagnosis Rotator cuff disorder, left documented in this encounter [facility]* Diagnosis Encounter for screening mammogram for breast cancer documented in this [facility]* Diagnosis Mixed incontinence urge and stress (male)(female) Incontinence of feces, unspecified fecal incontinence type documented in this [facility]* Diagnosis Mixed incontinence urge and stress (male)(female)- Primary documented in this [facility]* Diagnosis Well adult exam- Primary Routine general medical examination at a [facility] facility Stage 3b chronic kidney disease (HCC) Type 2 diabetes mellitus with stage 3b chronic kidney disease, without long-term current use of insulin ([facility]) Gastroesophageal reflux disease without esophagitis Esophageal reflux Chronic obstructive pulmonary disease, unspecified COPD type ([facility]) Paroxysmal atrial fibrillation (HCC) Atrial fibrillation Mixed hyperlipidemia Low vitamin B12 level Other B-complex deficiencies Obesity, Class III, BMI >= 40 Morbid obesity Medication management Encounter for long-term (current) use of other medications Subacute cough Cough documented in this encounter [facility]* Diagnosis Left hip pain Pain in joint, pelvic region and thigh documented in this encounter [facility]* Diagnosis Mixed incontinence urge and stress (male)(female)- Primary Muscle weakness (generalized) Incontinence of feces, unspecified fecal incontinence type documented in this encounter [facility]* Diagnosis Type 2 diabetes mellitus with stage 3b chronic kidney disease, without long-term current use of insulin ([facility])- Primary Diabetic eye exam ([facility]) Type II or unspecified type diabetes mellitus without mention of complication, not stated as uncontrolled Mixed hyperlipidemia History of CVA (cerebrovascular accident) Transient ischemic attack (TIA), and cerebral infarction without residual deficits Chronic obstructive pulmonary disease, unspecified COPD type ([facility]) Nodule of left lung Solitary [...] Coronary atherosclerosis of unspecified type of vessel, [place] or graft Paroxysmal atrial fibrillation (HCC) Atrial fibrillation Stage 3b chronic kidney disease (HCC) Bilateral [...] of other medications [facility]* Diagnosis Sepsis, due to unspecified organism, unspecified whether acute organ dysfunction present (HCC)- Primary ASHD (arteriosclerotic heart disease) Coronary atherosclerosis of unspecified type of vessel, [place] or graft Chronic obstructive pulmonary disease, unspecified COPD type (HCC) Wound of left lower extremity, subsequent encounter Type 2 diabetes mellitus with stage 3b chronic kidney disease, without long-term current use of insulin (HCC) Paroxysmal atrial fibrillation (HCC) Atrial fibrillation Mixed hyperlipidemia Stage 3b chronic kidney disease (HCC) [facility] Urinary frequency- Primary Dysuria Pressure injury of sacral region, stage 2 (HCC) [facility]* Diagnosis Left shoulder pain, unspecified chronicity- Primary [facility]* Diagnosis Type 2 diabetes mellitus without retinopathy (HCC)- Primary Type II or unspecified type diabetes mellitus without mention of complication, not stated as uncontrolled Nuclear sclerosis of both eyes Regular astigmatism of both eyes Regular astigmatism Presbyopia Meibomian gland dysfunction (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 eyes [facility] Lauren Vela [facility] Note Date/Time November 04, 2024 3:0 0pm [facility] Medical Records Department [address] [place] [address] H&P Exam - Hospitalist 11/04/24 1429 MR#: [id number] Acct: [id number] Name: PERNELL RODRIGUEZ Rep #:[id number] 3 : 1960 64 From: Lauren Vela [...] GERD who presents to the [facility] ED on 11/04/2024 with history of [...] 15, occult blood 50, positive nitrate, leukocyte [id number] with urine WBCs 25-50 with 3+ urine [...] [facility] History of echocardiogram Wears glasses [...] Sl. Cloudy, Urine pH 5.0, Ur Specific [place] 1.020, Urine Protein 15 H, Urine Glucose [...] (Auto) 70.2 H, Lymph % (Auto) 19.2, [place] % (Auto) 7.3, Eos % (Auto) 2.9, [...] GERD who presents to the [facility] ED on 11/04/2024 with history of [...] readmission, not clinically appropriate for consideration for skilled nursing. #13. DVT prophylaxis: Will continue patient home Eliquis regimen. #14. CODE status: Patient does not have healthcare power of deputy prosecuting attorney or living will in place but she [...] 16 minutes. Charges/Coding Visit Charges Inpatient E&M: 14061 Init Hosp L3 Procedures Hospitalists Procedures: 62816 Advncd Care Plan 30 Min 11/04/24 1500 <Electronically signed by Lauren Vela MD> Cosigner Signature (if applicable): CC: Dr. Lauren Vela MD; Dr. Homer Bradford MD~ Signed [facility] Work Phone: Hospital course Narrative No data available for this section [facility] Hospital Discharge instructions Additional Instructions Prednisone may make your blood sugars go up since you are a diabetic. Make sure you check your blood sugars at least once daily, if they go over 400, come to the ER. You already received a dose of prednisone for today, so start the prescription tomorrow 09/13.[facility] Work Phone: Hospital Discharge instructions Additional Instructions Implant Used?: [facility] Work Phone: Hospital Discharge instructionsAdditional Instructions Date of Discharge: 01/11/25[facility] Work Phone: Hospital Discharge instructionsAdditional Instructions [...] trouble with access to your nebulizer.[facility] Work Phone: Progress note No data available for this section [facility] Reason for referral (narrative)* Diagnostic Procedure Only (Routine) - Pending Review Specialty Diagnoses / Procedures Referred By Contac t Referred To Contact [facility] Diagnoses Encounter for screening mammogram for breast cancer Procedures JACI SCREENING SCREENING MAMMOGRAPHY BI 2-VIEW BREAST INC CAD Homer Bradford MD [address] [place] [address] [facility] [address] [place] [address] Referral ID Status Reason Start Date Expiration Date Visits Requested Visits Authorized [id number] Pending Review Auto-Generat ed Referral 07/28/2022 08/27/2023 1 1 [facility] for referral (narrative)* Outpatient Procedure (Routine) - Authorized Specialty Diagnoses / Procedures [facility] Diagnoses Diminished pulses in lower extremity Procedures PVR ANK PRESS BRUCE V[facility] NON-INVAS PHYSIOLOGIC STD EXTREMITY ART 2 LEVEL Dennys Pool [address] [place] [address] [facility] [address] [place] [address] Referral ID Status Reason Start Date Expiration Date Visits Requested Visits Authorized [id number] Authorized Auto-Generat ed Referral 01/12/2023 01/12/2024 1 1 [facility] for referral (narrative)* Diagnostic Procedure Only (Routine) - Authorized Specialty Diagnoses / Procedures Referred By Contac t Referred To Contact [facility] Diagnoses Encounter for screening mammogram for breast cancer Procedures JACI SCREENING SCREENING MAMMOGRAPHY BI 2-VIEW BREAST INC CAD Homer Bradford MD [address] [place] [address] [facility] [address] [address] Referral ID Status Reason Start Date Expiration Date Visits Requested Visits Authorized [id number] Authorized Auto-Generat ed Referral 07/20/2023 08/18/2024 1 1 [facility] for referral (narrative)No reason for referral information availableWSt. Elizabeth [facility] Work Phone: Reason for visit Narrative* Diagnostic Procedure Only (Routine) - Closed Specialty Diagnoses / Procedures Referred By Contac t Referred To Contact XR IMAGING Diagnoses Chronic pain of both shoulders Procedures XR SHOULDER GENERAL 3V OR MORE AP/TRUE AP/OTHER RIGHT RADEX SHOULDER COMPLETE MINIMUM 2 VIEWS Meagan Yusuf PA-C [address] [place] [address] [place] [address] Referral ID Status Reason Start Date Expiration Date V isits Requested Visits Authorized [id number] Closed Auto-Generate d Referral 09/27/2023 10/26/2024 1 1 [facility] for visit Narrative* Diagnostic Procedure Only (Routine) - Closed Specialty Diagnoses / Procedures Referred By Contac t Referred To Contact [facility] Diagnoses Encounter for screening mammogram for breast cancer Procedures JACI SCREENING SCREENING MAMMOGRAPHY BI 2-VIEW BREAST INC CAD Homer Bradford MD [address] [place] [address] [facility] [address] [place] [address] Referral ID Status Reason Start Date Expiration Date V isits Requested Visits Authorized [id number] Closed Auto-Generate d Referral 11/14/2023 12/13/2024 1 1 [facility] Summary Purpose Family History No Family History Records Found Relationship Condition Age at Onset Recorded Date/T pierce grandmother Malignant neoplasm Unknown father Malignant neoplasm Unknown sister Malignant neoplasm of breast Unknown Advance Directives No Advanced Directives Records Found Advance Directive Response Recorded Date/ Time Advance Directives No January 14 14 4:13pm Living Will No August 25 7:42pm Power of Food Stand Manager No August 25, 2021 7:42pm Advance Directive Response Recorded Date/ Time Advance Directives No January 14 14 3:13pm Living Will No September 12 023 11:06am Power of Food Stand Manager No September 12, 2022 11:06am Advance Directive Response Recorded Date/ Time Advance Directives No January 14 14 4:13pm Living Will No December 01, 2022 2 :34pm Power of Food Stand Manager No December 01, 2022 2:34pm Advance Directive Response Recorded Date/ Time Advance Directives No January 14 14 4:13pm Living Will No November 18, 2023 11 :36am Power of Food Stand Manager No November 18, 2023 11:36am Advance Directive Response Recorded Date/ Time Living Will No September 12 025 4:06pm Power of Food Stand Manager No September 12, 2024 4:06pm Advance Directives No January 14 3:13pm Advance Directive Response Recorded Date/ Time Living Will No September 12 2 025 5:06pm Do you have a Healthcare Power of Food Stand Manager? No September 12, 2024 5:06pm Living Will No November 04, 2024 12:39pm Do you have a Healthcare Power of Food Stand Manager? No November 04, 2024 12:39pm Advance Directives No January 14 4:13pm Advance Directive Response Recorded Date/ Time Living Will No September 12, 025 5:06pm Do you have a Healthcare Power of Food Stand Manager? No September 12, 2024 5:06pm Do you have a Healthcare Power of Food Stand Manager? No November 12, 2024 2:30am Living Will No November 04, 2024 4:45pm Do you have a Healthcare Power of Food Stand Manager? No November 04, 2024 4:45pm Do you have a Healthcare Power of Food Stand Manager? No November 14, 2024 6:51am Do you have a Healthcare Power of Food Stand Manager? No January 08, 2025 5:00pm Advance Directives No January 14 14 4:13pm Advance Directive Response Recorded Date/ Time Living Will No September 12 025 5:06pm Do you have a Healthcare Power of Food Stand Manager? No September 12, 2024 5:06pm Do you have a Healthcare Power of Food Stand Manager? No November 12, 2024 2:30am Living Will No November 04, 2024 4:45pm Do you have a Healthcare Power of Food Stand Manager? No November 04, 2024 4:45pm Do you have a Healthcare Power of Food Stand Manager? No November 14, 2024 6:51am Do you have a Healthcare Power of Food Stand Manager? No January 08, 2025 8:52pm Advance Directives No January 14 4:13pm Advance Directive Response Recorded Date/ Time Do you have a Healthcare Power of Food Stand Manager? No November 12, 2024 2:30am Living Will No November 04, 2024 4:45pm Do you have a Healthcare Power of Food Stand Manager? No November 04, 2024 4:45pm Do you have a Healthcare Power of Food Stand Manager? No November 14, 2024 6:51am Do you have a Healthcare Power of Food Stand Manager? No January 08, 2025 8:52pm Advance Directives No January 14 4:13pm Advance Directive Response Recorded Date/ Time Do you have a Healthcare Power of Food Stand Manager? No November 12, 2024 2:30am Living Will No November 04, 2024 4:45pm Do you have a Healthcare Power of Food Stand Manager? No November 04, 2024 4:45pm Do you have a Healthcare Power of Food Stand Manager? No November 14, 2024 6:51am Do you have a Healthcare Power of Food Stand Manager? No January 08, 2025 8:52pm Advance Directives No January 31 1:47pm Advance Directive Response Recorded Date/ Time Do you have a Healthcare Power of Food Stand Manager? No November 12, 2024 2:30am Do you have a Healthcare Power of Food Stand Manager? No November 14, 2024 6:51am Do you have a Healthcare Power of Food Stand Manager? No January 08, 2025 8:52pm Advance Directives No January 31 1:47pm Advance Directive Response Recorded Date/ Time Do you have a Healthcare Power of Food Stand Manager? No January 08, 2025 8:52pm Advance Directives No January 31 1:47pm Advance Directive Response Recorded Date/ Time Do you have a Healthcare Power of Food Stand Manager? No April 30, 2025 5:47pm Advance Directives No January 31 1:47pm Reason for Referral Specialty Diagnoses / Procedures Referred By Contac t Referred To Contact Nephrology Diagnoses Stage 3b chronic kidney disease (HCC) Procedures CONSULT TO NEPHROLOGY OFFICE/OUTPATIENT [facility] 60-74 MINUTES Homer Bradford MD [address] [place] [address] Referral ID Status Reason Start Date Expiration Date Visits Requested Visits Authorized [id number] Authorized PCP Requested Referral 12/16/2021 12/16/2022 1 1 Specialty Diagnoses / Procedures Referred By Contac t Referred To Contact Meagan Yusuf PA-C [address] [place] [address] Referral ID Status Reason Start Date Expiration Date Visits Re quested Visits Authorized [id number] Closed 1 1 Specialty Diagnoses / Procedures Referred By Contac t Referred To Contact General Surgery Diagnoses Screening for colon cancer Procedures CONSULT TO GENERAL SURGERY OFFICE/OUTPATIENT [facility] 60-74 MINUTES Meagan Yusuf PA-C [address] [place] [address] Referral ID Status Reason Start Date Expiration Date Visits Requested Visits Authorized [id number] Authorized PCP Requested Referral 02/28/2023 02/28/2024 1 1 Specialty Diagnoses / Procedures Referred By Contac t Referred To Contact Orthopedics Diagnoses Chronic pain of both shoulders Procedures CONSULT TO ORTHOPAEDICS OFFICE/OUTPATIENT [facility] 60 MINUTES Meagan Yusuf PA-C [address] [place] [address] Referral ID Status Reason Start Date Expiration Date Visits Requested Visits Authorized [id number] Authorized PCP Requested Referral 09/27/2023 09/26/2024 1 1 Specialty Diagnoses / Procedures Referred By Contac t Referred To Contact XR IMAGING Diagnoses Chronic pain of both shoulders Procedures XR SHOULDER GENERAL 3V OR MORE AP/TRUE AP/OTHER RIGHT RADEX SHOULDER COMPLETE MINIMUM 2 VIEWS Meagan Yusuf PA-C [address] [place] [address] [place] [address] Referral ID Status Reason Start Date Expiration Date Visits Requested Visits Authorized [id number] Pending Review Auto-Generat ed Referral 09/27/2023 10/26/2024 1 1 Specialty Diagnoses / Procedures Referred By Contac t Referred To Contact XR IMAGING Diagnoses Chronic pain of both shoulders Procedures XR SHOULDER GENERAL 3V OR MORE AP/TRUE AP/OTHER LEFT RADEX SHOULDER COMPLETE MINIMUM 2 VIEWS Meagan Yusuf PA-C [address] [place] [address] [place] [address] Referral ID Status Reason Start Date Expiration Date Visits Requested Visits Authorized [id number] Pending Review Auto-Generat ed Referral 09/27/2023 10/26/2024 1 1 Specialty Diagnoses / Procedures Referred By Contac t Referred To Contact [facility] Diagnoses Rotator cuff disorder, left Procedures CONSULT TO PHYSICAL THERAPY PHYSICAL THERAPY EVALUATION [facility] 45 MINS Jarod Godwin V, DO [address] [place] [address] [facility] [address] [place] [address] Referral ID Status Reason Start Date Expiration Date Visits Requested Visits Authorized [id number] Authorized Auto-Generat ed Referral 07/18/2023 07/17/2024 1 1 Specialty Diagnoses / Procedures Referred By Contac t Referred To Contact Neurology Diagnoses Hypotension, unspecified hypotension type History of CVA (cerebrovascular accident) Migraine without aura and without status migrainosus, not intractable Extrapyramidal reaction Tardive dyskinesia Chronic insomnia Procedures CONSULT TO NEUROLOGY OFFICE/OUTPATIENT [facility] 60 MINUTES Homer Bradford MD [address] [place] [address] Referral ID Status Reason Start Date Expiration Date Visits Requested Visits Authorized [id number] Authorized PCP Requested Referral 11/14/2023 11/13/2024 1 1 Specialty Diagnoses / Procedures Referred By Contac t Referred To Contact [facility] Diagnoses Encounter for screening mammogram for breast cancer Procedures JACI SCREENING SCREENING MAMMOGRAPHY BI 2-VIEW BREAST INC CAD Homer Bradford MD [address] [place] [address] [facility] [address] [place] [address] Referral ID Status Reason Start Date Expiration Date Visits Requested Visits Authorized [id number] Authorized Auto-Generat ed Referral 11/14/2023 12/13/2024 1 1 Specialty Diagnoses / Procedures Referred By Contac t Referred To Contact [facility] Diagnoses Rotator cuff disorder, left Procedures PT REHAB FOLLOW UP ORDER THERAPEUTIC EXERCISES RE, EA 15 MIN. Antwan Cope, PT [address] [place] [address] [facility] [address] [place] [address] Referral ID Status Reason Start Date Expiration Date Visits Requested Visits Authorized [id number] Pending Review PCP Requested Referral Auto-Generate d Referral 11/29/2023 02/27/2024 1 1 Specialty Diagnoses / Procedures Referred By Contac t Referred To Contact Ophthalmology Diagnoses Type 2 diabetes mellitus with stage 3b chronic kidney disease, without long-term current use of insulin (HCC) Procedures CONSULT TO OPHTHALMOLOGY OFFICE/OUTPATIENT [facility] 60 MINUTES Meagan Yusuf PA-C [address] [place] [address] Referral ID Status Reason Start Date Expiration Date Visits Requested Visits Authorized [id number] Authorized PCP Requested Referral 03/22/2024 03/22/2025 1 [...] cardiac monito r January 08, 2025 7:30pm Chiah-os-pbyxhsi kidney injury December 7:30pm DM (diabetes mellitus), [...] cardiac monito r January 08, 2025 7:23pm Ikxff-we-gyvqqqu kidney injury December 7:23pm DM (diabetes mellitus), [...] cardiac monito r January 08, 2025 7:23pm Balam-pu-mncevhi kidney injury December 7:23pm DM (diabetes mellitus), [...] stage 3 due to type 1 diabetes elroyi valerias 2025 9:56am COPD (chronic obstructive pulmonary dise [...] cardiac monito r January 08, 2025 7:23pm Rzpaz-lk-gtzbcyc kidney injury December 7:23pm DM (diabetes mellitus), [...] stage 3 due to type 1 diabetes elroyi tus 2025 9:56am COPD (chronic obstructive pulmonary [...] cardiac monito r January 08, 2025 7:23pm Yomzb-ym-gaxrssw kidney injury December 7:23pm DM (diabetes mellitus), [...] WOUND 2025 9:56 am WOUND 2025 11:5 [facility] January 31, 2025 12:3 2pm WOUND February [...] 3 due to type 1 diabetes melli 2025 9:56am COPD (chronic obstructive pulmonary dise [...] 1530, Until Tue01/05/23 at 032, Administer for dilation PROTECT FROM LIGHT Given [...] section and content) DATE CREATED AUTHOR 01/06/2019 [facility] DATE CREATED AUTHOR AUTHOR'S ORGANIZ ATION 01/06/2022 [facility] ([place]) DATE CREATED AUTHOR AUTHOR'S ORGANIZ ATION 05/30/2025 [facility] DATE CREATED AUTHOR AUTHOR'S ORGANIZ ATION 05/30/2025 [facility] Source Comments (unrecognize d section and content) In the event this informatio n is protected by the Federal Confidentiality of Alcohol and Drug Abuse Patient Records regulations: The Federal rules restrict any use of the information to criminally investigate or prosecute any alcohol or drug abuse patient.TrihealthIn the event this information is protected by the Federal Confidentiality of Alcohol and Drug Abuse Patient Records regulations: The Federal rules restrict any use of the information to criminally investigate or prosecute any alcohol or drug abuse patient.TrihealthIn the event this information is protected by the Federal Confidentiality of Alcohol and Drug Abuse Patient Records regulations: The Federal rules restrict any use of the information to criminally investigate or prosecute any alcohol or drug abuse patient.TrihealthIn the event this information is protected by the Federal Confidentiality of Alcohol and Drug Abuse Patient Records regulations: The Federal rules restrict any use of the information to criminally investigate or prosecute any alcohol or drug abuse patient.TrihealthIn the event this information is protected by the Federal Confidentiality of Alcohol and Drug Abuse Patient Records regulations: The Federal rules restrict any use of the information to criminally investigate or prosecute any alcohol or drug abuse patient.TrihealthIn the event this information is protected by the Federal Confidentiality of Alcohol and Drug Abuse Patient Records regulations: The Federal rules restrict any use of the information to criminally investigate or prosecute any alcohol or drug abuse patient.TrihealthIn the event this information is protected by the Federal Confidentiality of Alcohol and Drug Abuse Patient Records regulations: The Federal rules restrict any use of the information to criminally investigate or prosecute any alcohol or drug abuse patient.TrihealthIn the event this information is protected by the Federal Confidentiality of Alcohol and Drug Abuse Patient Records regulations: The Federal rules restrict any use of the information to criminally investigate or prosecute any alcohol or drug abuse patient.TrihealthIn the event this information is protected by the Federal Confidentiality of Alcohol and Drug Abuse Patient Records regulations: The Federal rules restrict any use of the information to criminally investigate or prosecute any alcohol or drug abuse patient.TrihealthIn the event this information is protected by the Federal Confidentiality of Alcohol and Drug Abuse Patient Records regulations: The Federal rules restrict any use of the information to criminally investigate or prosecute any alcohol or drug abuse patient.TrihealthIn the event this information is protected by the Federal Confidentiality of Alcohol and Drug Abuse Patient Records regulations: The Federal rules restrict any use of the information to criminally investigate or prosecute any alcohol or drug abuse patient.TrihealthIn the event this information is protected by the Federal Confidentiality of Alcohol and Drug Abuse Patient Records regulations: The Federal rules restrict any use of the information to criminally investigate or prosecute any alcohol or drug abuse patient.TrihealthIn the event this information is protected by the Federal Confidentiality of Alcohol and Drug Abuse Patient Records regulations: The Federal rules restrict any use of the information to criminally investigate or prosecute any alcohol or drug abuse patient.TrihealthIn the event this information is protected by the Federal Confidentiality of Alcohol and Drug Abuse Patient Records regulations: The Federal rules restrict any use of the information to criminally investigate or prosecute any alcohol or drug abuse patient.TrihealthIn the event this information is protected by the Federal Confidentiality of Alcohol and Drug Abuse Patient Records regulations: The Federal rules restrict any use of the information to criminally investigate or prosecute any alcohol or drug abuse patient.TrihealthIn the event this information is protected by the Federal Confidentiality of Alcohol and Drug Abuse Patient Records regulations: The Federal rules restrict any use of the information to criminally investigate or prosecute any alcohol or drug abuse patient.TrihealthIn the event this information is protected by the Federal Confidentiality of Alcohol and Drug Abuse Patient Records regulations: The Federal rules restrict any use of the information to criminally investigate or prosecute any alcohol or drug abuse patient.TrihealthIn the event this information is protected by the Federal Confidentiality of Alcohol and Drug Abuse Patient Records regulations: The Federal rules restrict any use of the information to criminally investigate or prosecute any alcohol or drug abuse patient.TrihealthIn the event this information is protected by the Federal Confidentiality of Alcohol and Drug Abuse Patient Records regulations: The Federal rules restrict any use of the information to criminally investigate or prosecute any alcohol or drug abuse patient.TrihealthIn the event this information is protected by the Federal Confidentiality of Alcohol and Drug Abuse Patient Records regulations: The Federal rules restrict any use of the information to criminally investigate or prosecute any alcohol or drug abuse patient.TrihealthIn the event this information is protected by the Federal Confidentiality of Alcohol and Drug Abuse Patient Records regulations: The Federal rules restrict any use of the information to criminally investigate or prosecute any alcohol or drug abuse patient.TrihealthIn the event this information is protected by the Federal Confidentiality of Alcohol and Drug Abuse Patient Records regulations: The Federal rules restrict any use of the information to criminally investigate or prosecute any alcohol or drug abuse patient.TrihealthIn the event this information is protected by the Federal Confidentiality of Alcohol and Drug Abuse Patient Records regulations: The Federal rules restrict any use of the information to criminally investigate or prosecute any alcohol or drug abuse patient.TrihealthIn the event this information is protected by the Federal Confidentiality of Alcohol and Drug Abuse Patient Records regulations: The Federal rules restrict any use of the information to criminally investigate or prosecute any alcohol or drug abuse patient.TrihealthIn the event this information is protected by the Federal Confidentiality of Alcohol and Drug Abuse Patient Records regulations: The Federal rules restrict any use of the information to criminally investigate or prosecute any alcohol or drug abuse patient.TrihealthIn the event this information is protected by the Federal Confidentiality of Alcohol and Drug Abuse Patient Records regulations: The Federal rules restrict any use of the information to criminally investigate or prosecute any alcohol or drug abuse patient.TrihealthIn the event this information is protected by the Federal Confidentiality of Alcohol and Drug Abuse Patient Records regulations: The Federal rules restrict any use of the information to criminally investigate or prosecute any alcohol or drug abuse patient.TrihealthIn the event this information is protected by the Federal Confidentiality of Alcohol and Drug Abuse Patient Records regulations: The Federal rules restrict any use of the information to criminally investigate or prosecute any alcohol or drug abuse patient.TrihealthIn the event this information is protected by the Federal Confidentiality of Alcohol and Drug Abuse Patient Records regulations: The Federal rules restrict any use of the information to criminally investigate or prosecute any alcohol or drug abuse patient.TrihealthIn the event this information is protected by the Federal Confidentiality of Alcohol and Drug Abuse Patient Records regulations: The Federal rules restrict any use of the information to criminally investigate or prosecute any alcohol or drug abuse patient.TrihealthIn the event this information is protected by the Federal Confidentiality of Alcohol and Drug Abuse Patient Records regulations: The Federal rules restrict any use of the information to criminally investigate or prosecute any alcohol or drug abuse patient.TrihealthIn the event this information is protected by the Federal Confidentiality of Alcohol and Drug Abuse Patient Records regulations: The Federal rules restrict any use of the information to criminally investigate or prosecute any alcohol or drug abuse patient.TrihealthIn the event this information is protected by the Federal Confidentiality of Alcohol and Drug Abuse Patient Records regulations: The Federal rules restrict any use of the information to criminally investigate or prosecute any alcohol or drug abuse patient.TrihealthIn the event this information is protected by the Federal Confidentiality of Alcohol and Drug Abuse Patient Records regulations: The Federal rules restrict any use of the information to criminally investigate or prosecute any alcohol or drug abuse patient.TrihealthIn the event this information is protected by the Federal Confidentiality of Alcohol and Drug Abuse Patient Records regulations: The Federal rules restrict any use of the information to criminally investigate or prosecute any alcohol or drug abuse patient.[facility]healthIn the event this information is protected by the Federal Confidentiality of Alcohol and Drug Abuse Patient Records regulations: The Federal rules restrict any use of the information to criminally investigate or prosecute any alcohol or drug abuse patient.TrihealthIn the event this information is protected by the Federal Confidentiality of Alcohol and Drug Abuse Patient Records regulations: The Federal rules restrict any use of the information to criminally investigate or prosecute any alcohol or drug abuse patient.[facility]healthIn the event this information is protected by the Federal Confidentiality of Alcohol and Drug Abuse Patient Records regulations: The Federal rules restrict any use of the information to criminally investigate or prosecute any alcohol or drug abuse patient.TrihealthIn the event this information is protected by the Federal Confidentiality of Alcohol and Drug Abuse Patient Records regulations: The Federal rules restrict any use of the information to criminally investigate or prosecute any alcohol or drug abuse patient.TrihealthIn the event this information is protected by the Federal Confidentiality of Alcohol and Drug Abuse Patient Records regulations: The Federal rules restrict any use of the information to criminally investigate or prosecute any alcohol or drug abuse patient.TrihealthIn the event this information is protected by the Federal Confidentiality of Alcohol and Drug Abuse Patient Records regulations: The Federal rules restrict any use of the information to criminally investigate or prosecute any alcohol or drug abuse patient.TrihealthIn the event this information is protected by the Federal Confidentiality of Alcohol and Drug Abuse Patient Records regulations: The Federal rules restrict any use of the information to criminally investigate or prosecute any alcohol or drug abuse patient.TrihealthIn the event this information is protected by the Federal Confidentiality of Alcohol and Drug Abuse Patient Records regulations: The Federal rules restrict any use of the information to criminally investigate or prosecute any alcohol or drug abuse patient.TrihealthIn the event this information is protected by the Federal Confidentiality of Alcohol and Drug Abuse Patient Records regulations: The Federal rules restrict any use of the information to criminally investigate or prosecute any alcohol or drug abuse patient.TrihealthIn the event this information is protected by the Federal Confidentiality of Alcohol and Drug Abuse Patient Records regulations: The Federal rules restrict any use of the information to criminally investigate or prosecute any alcohol or drug abuse patient.TrihealthIn the event this information is protected by the Federal Confidentiality of Alcohol and Drug Abuse Patient Records regulations: The Federal rules restrict any use of the information to criminally investigate or prosecute any alcohol or drug abuse patient.TrihealthIn the event this information is protected by the Federal Confidentiality of Alcohol and Drug Abuse Patient Records regulations: The Federal rules restrict any use of the information to criminally investigate or prosecute any alcohol or drug abuse patient.TrihealthIn the event this information is protected by the Federal Confidentiality of Alcohol and Drug Abuse Patient Records regulations: The Federal rules restrict any use of the information to criminally investigate or prosecute any alcohol or drug abuse patient.TrihealthIn the event this information is protected by the Federal Confidentiality of Alcohol and Drug Abuse Patient Records regulations: The Federal rules restrict any use of the information to criminally investigate or prosecute any alcohol or drug abuse patient.TrihealthIn the event this information is protected by the Federal Confidentiality of Alcohol and Drug Abuse Patient Records regulations: The Federal rules restrict any use of the information to criminally investigate or prosecute any alcohol or drug abuse patient.TrihealthIn the event this information is protected by the Federal Confidentiality of Alcohol and Drug Abuse Patient Records regulations: The Federal rules restrict any use of the information to criminally investigate or prosecute any alcohol or drug abuse patient.[facility]healthIn the event this information is protected by the Federal Confidentiality of Alcohol and Drug Abuse Patient Records regulations: The Federal rules restrict any use of the information to criminally investigate or prosecute any alcohol or drug abuse patient.TrihealthIn the event this information is protected by the Federal Confidentiality of Alcohol and Drug Abuse Patient Records regulations: The Federal rules restrict any use of the information to criminally investigate or prosecute any alcohol or drug abuse patient.TrihealthIn the event this information is protected by the Federal Confidentiality of Alcohol and Drug Abuse Patient Records regulations: The Federal rules restrict any use of the information to criminally investigate or prosecute any alcohol or drug abuse patient.TrihealthIn the event this information is protected by the Federal Confidentiality of Alcohol and Drug Abuse Patient Records regulations: The Federal rules restrict any use of the information to criminally investigate or prosecute any alcohol or drug abuse patient.TrihealthIn the event this information is protected by the Federal Confidentiality of Alcohol and Drug Abuse Patient Records regulations: The Federal rules restrict any use of the information to criminally investigate or prosecute any alcohol or drug abuse patient.TrihealthIn the event this information is protected by the Federal Confidentiality of Alcohol and Drug Abuse Patient Records regulations: The Federal rules restrict any use of the information to criminally investigate or prosecute any alcohol or drug abuse patient.TrihealthIn the event this information is protected by the Federal Confidentiality of Alcohol and Drug Abuse Patient Records regulations: The Federal rules restrict any use of the information to criminally investigate or prosecute any alcohol or drug abuse patient.TrihealthIn the event this information is protected by the Federal Confidentiality of Alcohol and Drug Abuse Patient Records regulations: The Federal rules restrict any use of the information to criminally investigate or prosecute any alcohol or drug abuse patient.[facility]healthIn the event this information is protected by the Federal Confidentiality of Alcohol and Drug Abuse Patient Records regulations: The Federal rules restrict any use of the information to criminally investigate or prosecute any alcohol or drug abuse patient.TrihealthIn the event this information is protected by the Federal Confidentiality of Alcohol and Drug Abuse Patient Records regulations: The Federal rules restrict any use of the information to criminally investigate or prosecute any alcohol or drug abuse patient.TrihealthIn the event this information is protected by the Federal Confidentiality of Alcohol and Drug Abuse Patient Records regulations: The Federal rules restrict any use of the information to criminally investigate or prosecute any alcohol or drug abuse patient.TrihealthIn the event this information is protected by the Federal Confidentiality of Alcohol and Drug Abuse Patient Records regulations: The Federal rules restrict any use of the information to criminally investigate or prosecute any alcohol or drug abuse patient.TrihealthIn the event this information is protected by the Federal Confidentiality of Alcohol and Drug Abuse Patient Records regulations: The Federal rules restrict any use of the information to criminally investigate or prosecute any alcohol or drug abuse patient.TrihealthIn the event this information is protected by the Federal Confidentiality of Alcohol and Drug Abuse Patient Records regulations: The Federal rules restrict any use of the information to criminally investigate or prosecute any alcohol or drug abuse patient.TrihealthIn the event this information is protected by the Federal Confidentiality of Alcohol and Drug Abuse Patient Records regulations: The Federal rules restrict any use of the information to criminally investigate or prosecute any alcohol or drug abuse patient.TrihealthIn the event this information is protected by the Federal Confidentiality of Alcohol and Drug Abuse Patient Records regulations: The Federal rules restrict any use of the information to criminally investigate or prosecute any alcohol or drug abuse patient.TrihealthIn the event this information is protected by the Federal Confidentiality of Alcohol and Drug Abuse Patient Records regulations: The Federal rules restrict any use of the information to criminally investigate or prosecute any alcohol or drug abuse patient.TrihealthIn the event this information is protected by the Federal Confidentiality of Alcohol and Drug Abuse Patient Records regulations: The Federal rules restrict any use of the information to criminally investigate or prosecute any alcohol or drug abuse patient.TrihealthIn the event this information is protected by the Federal Confidentiality of Alcohol and Drug Abuse Patient Records regulations: The Federal rules restrict any use of the information to criminally investigate or prosecute any alcohol or drug abuse patient.TrihealthIn the event this information is protected by the Federal Confidentiality of Alcohol and Drug Abuse Patient Records regulations: The Federal rules restrict any use of the information to criminally investigate or prosecute any alcohol or drug abuse patient.TrihealthIn the event this information is protected by the Federal Confidentiality of Alcohol and Drug Abuse Patient Records regulations: The Federal rules restrict any use of the information to criminally investigate or prosecute any alcohol or drug abuse patient.TrihealthIn the event this information is protected by the Federal Confidentiality of Alcohol and Drug Abuse Patient Records regulations: The Federal rules restrict any use of the information to criminally investigate or prosecute any alcohol or drug abuse patient.TrihealthIn the event this information is protected by the Federal Confidentiality of Alcohol and Drug Abuse Patient Records regulations: The Federal rules restrict any use of the information to criminally investigate or prosecute any alcohol or drug abuse patient.TrihealthIn the event this information is protected by the Federal Confidentiality of Alcohol and Drug Abuse Patient Records regulations: The Federal rules restrict any use of the information to criminally investigate or prosecute any alcohol or drug abuse patient.TrihealthIn the event this information is protected by the Federal Confidentiality of Alcohol and Drug Abuse Patient Records regulations: The Federal rules restrict any use of the information to criminally investigate or prosecute any alcohol or drug abuse patient.TrihealthIn the event this information is protected by the Federal Confidentiality of Alcohol and Drug Abuse Patient Records regulations: The Federal rules restrict any use of the information to criminally investigate or prosecute any alcohol or drug abuse patient.TrihealthIn the event this information is protected by the Federal Confidentiality of Alcohol and Drug Abuse Patient Records regulations: The Federal rules restrict any use of the information to criminally investigate or prosecute any alcohol or drug abuse patient.TrihealthIn the event this information is protected by the Federal Confidentiality of Alcohol and Drug Abuse Patient Records regulations: The Federal rules restrict any use of the information to criminally investigate or prosecute any alcohol or drug abuse patient.TrihealthIn the event this information is protected by the Federal Confidentiality of Alcohol and Drug Abuse Patient Records regulations: The Federal rules restrict any use of the information to criminally investigate or prosecute any alcohol or drug abuse patient.TrihealthIn the event this information is protected by the Federal Confidentiality of Alcohol and Drug Abuse Patient Records regulations: The Federal rules restrict any use of the information to criminally investigate or prosecute any alcohol or drug abuse patient.TrihealthIn the event this information is protected by the Federal Confidentiality of Alcohol and Drug Abuse Patient Records regulations: The Federal rules restrict any use of the information to criminally investigate or prosecute any alcohol or drug abuse patient.TrihealthIn the event this information is protected by the Federal Confidentiality of Alcohol and Drug Abuse Patient Records regulations: The Federal rules restrict any use of the information to criminally investigate or prosecute any alcohol or drug abuse patient.TrihealthIn the event this information is protected by the Federal Confidentiality of Alcohol and Drug Abuse Patient Records regulations: The Federal rules restrict any use of the information to criminally investigate or prosecute any alcohol or drug abuse patient.TrihealthIn the event this information is protected by the Federal Confidentiality of Alcohol and Drug Abuse Patient Records regulations: The Federal rules restrict any use of the information to criminally investigate or prosecute any alcohol or drug abuse patient.TrihealthIn the event this information is protected by the Federal Confidentiality of Alcohol and Drug Abuse Patient Records regulations: The Federal rules restrict any use of the information to criminally investigate or prosecute any alcohol or drug abuse patient.TrihealthIn the event this information is protected by the Federal Confidentiality of Alcohol and Drug Abuse Patient Records regulations: The Federal rules restrict any use of the information to criminally investigate or prosecute any alcohol or drug abuse patient.TrihealthIn the event this information is protected by the Federal Confidentiality of Alcohol and Drug Abuse Patient Records regulations: The Federal rules restrict any use of the information to criminally investigate or prosecute any alcohol or drug abuse patient.TrihealthIn the event this information is protected by the Federal Confidentiality of Alcohol and Drug Abuse Patient Records regulations: The Federal rules restrict any use of the information to criminally investigate or prosecute any alcohol or drug abuse patient.TrihealthIn the event this information is protected by the Federal Confidentiality of Alcohol and Drug Abuse Patient Records regulations: The Federal rules restrict any use of the information to criminally investigate or prosecute any alcohol or drug abuse patient.TrihealthIn the event this information is protected by the Federal Confidentiality of Alcohol and Drug Abuse Patient Records regulations: The Federal rules restrict any use of the information to criminally investigate or prosecute any alcohol or drug abuse patient.TrihealthIn the event this information is protected by the Federal Confidentiality of Alcohol and Drug Abuse Patient Records regulations: The Federal rules restrict any use of the information to criminally investigate or prosecute any alcohol or drug abuse patient.TrihealthIn the event this information is protected by the Federal Confidentiality of Alcohol and Drug Abuse Patient Records regulations: The Federal rules restrict any use of the information to criminally investigate or prosecute any alcohol or drug abuse patient.TrihealthIn the event this information is protected by the Federal Confidentiality of Alcohol and Drug Abuse Patient Records regulations: The Federal rules restrict any use of the information to criminally investigate or prosecute any alcohol or drug abuse patient.TrihealthIn the event this information is protected by the Federal Confidentiality of Alcohol and Drug Abuse Patient Records regulations: The Federal rules restrict any use of the information to criminally investigate or prosecute any alcohol or drug abuse patient.TrihealthIn the event this information is protected by the Federal Confidentiality of Alcohol and Drug Abuse Patient Records regulations: The Federal rules restrict any use of the information to criminally investigate or prosecute any alcohol or drug abuse patient.TrihealthIn the event this information is protected by the Federal Confidentiality of Alcohol and Drug Abuse Patient Records regulations: The Federal rules restrict any use of the information to criminally investigate or prosecute any alcohol or drug abuse patient.TrihealthIn the event this information is protected by the Federal Confidentiality of Alcohol and Drug Abuse Patient Records regulations: The Federal rules restrict any use of the information to criminally investigate or prosecute any alcohol or drug abuse patient.TrihealthIn the event this information is protected by the Federal Confidentiality of Alcohol and Drug Abuse Patient Records regulations: The Federal rules restrict any use of the information to criminally investigate or prosecute any alcohol or drug abuse patient.TrihealthIn the event this information is protected by the Federal Confidentiality of Alcohol and Drug Abuse Patient Records regulations: The Federal rules restrict any use of the information to criminally investigate or prosecute any alcohol or drug abuse patient.TrihealthIn the event this information is protected by the Federal Confidentiality of Alcohol and Drug Abuse Patient Records regulations: The Federal rules restrict any use of the information to criminally investigate or prosecute any alcohol or drug abuse patient.TrihealthIn the event this information is protected by the Federal Confidentiality of Alcohol and Drug Abuse Patient Records regulations: The Federal rules restrict any use of the information to criminally investigate or prosecute any alcohol or drug abuse patient.TrihealthIn the event this information is protected by the Federal Confidentiality of Alcohol and Drug Abuse Patient Records regulations: The Federal rules restrict any use of the information to criminally investigate or prosecute any alcohol or drug abuse patient.TrihealthIn the event this information is protected by the Federal Confidentiality of Alcohol and Drug Abuse Patient Records regulations: The Federal rules restrict any use of the information to criminally investigate or prosecute any alcohol or drug abuse patient.TrihealthIn the event this information is protected by the Federal Confidentiality of Alcohol and Drug Abuse Patient Records regulations: The Federal rules restrict any use of the information to criminally investigate or prosecute any alcohol or drug abuse patient.TrihealthIn the event this information is protected by the Federal Confidentiality of Alcohol and Drug Abuse Patient Records regulations: The Federal rules restrict any use of the information to criminally investigate or prosecute any alcohol or drug abuse patient.[facility] Reason for Visit (unrecogniz ed section and content) Reason Comments [facility]fp Discharge Reason Onset Date Comments Refill Request [...] HIGH MDM 60-74 MINUTES Meagan Yusuf PA-C [address] [place] [address] Referral ID Status Reason Start Date Expiration Date V isits Requested Visits Authorized [id number] Closed PCP Requested Referral 02/28/2023 02/28/2024 1 [...] COMPLEX 45 MINS Jarod Godwin V, DO [address] [place] [address] [facility] [address] [place] [address] Referral ID Status Reason Start Date Expiration Date V isits Requested Visits Authorized [id number] Closed Auto-Generate d Referral 07/18/2023 07/17/2024 1 [...] Diagnoses Diabetic eye exam (HCC) Procedures OFFICE/OUTPATIENT [facility] 60 MINUTES Homer Bradford MD [address] [place] [address] Phone: tel: fax: [facility] [address] [place] [address] Referral ID Status Reason Start Date Expiration Date V isits Requested Visits Authorized [id number] Closed PCP Requested Referral 12/18/2024 12/18/2025 1 1 Reason Comments Letter Reason Onset Date Comments Refill Request 03/26/2025 Care Teams (unrecognized sec tion and content) [facility] [employer] Stiffener Insoles Relationship Specialty Start Date End Date Homer Bradford MD [address] [place], [place] [address] PCP - General Family Practice 01/14/14 Channel Lip Stiffener Insoles Relationship Specialty Start Date End Date Homer Bradford MD [address] [place] [address] PCP - General Family Practice 01/14/14 Channel Lip Stiffener Insoles Relationship Specialty Start Date End Date Homer Bradford MD [address] [place] [address] [place] [address] PCP - General Family Practice 01/14/14 Channel Lip Stiffener Insoles Relationship Specialty Start Date End Date Homer Bradford MD [address] [place] [address] [place] [address] PCP - General Family Practice 01/14/14 Channel Lip Stiffener Insoles Relationship Specialty Start Date End Date Homer Bradford MD [address] [place] [address] PCP - General Family Practice 01/14/14 Channel Lip Stiffener Insoles Relationship Specialty Start Date End Date Homer Bradford MD [address] [place] [address] PCP - General Family Practice 01/14/14 Channel Lip Stiffener Insoles Relationship Specialty Start Date End Date Homer Bradford MD [address] [place] [address] [place] [address] PCP - General Family Practice 01/14/14 Channel Lip Stiffener Insoles Relationship Specialty Start Date End Date Homer Bradford MD [address] [place] [address] [place] [address] PCP - General Family Practice 01/14/14 Channel Lip Stiffener Insoles Relationship Specialty Start Date End Date Homer Bradford MD [address] [place] [address] [place] [address] PCP - General Family Practice 01/14/14 Channel Lip Stiffener Insoles Relationship Specialty Start Date End Date Homer Bradford MD [address] [place] [address] [place] [address] PCP - General Family Practice 01/14/14 Channel Lip Stiffener Insoles Relationship Specialty Start Date End Date Homer Bradford MD [address] [facility] [address] PCP - General Family Practice 01/14/14 Channel Lip Stiffener Insoles Relationship Specialty Start Date End Date Homer Bradford MD [facility] [place] [address] PCP - General Family Practice 01/14/14 Channel Lip Stiffener Insoles Relationship Specialty Start Date End Date Homer Bradford MD [facility] [place] [address] PCP - General Family Practice 01/14/14 Channel Lip Stiffener Insoles Relationship Specialty Start Date End Date Homer Bradford MD [address] [place] [address], [place] [address] PCP - General Family Practice 01/14/14 Channel Lip Stiffener Insoles Relationship Specialty Start Date End Date Homer Bradford MD [address] [place] [address] PCP - General Family Medicine 01/14/14 Channel Lip Stiffener Insoles Relationship Specialty Start Date End Date Homer Bradford MD [address] [place] [address] [place] [address] PCP - General Family Medicine 01/14/14 Channel Lip Stiffener Insoles Relationship Specialty Start Date End Date Homer Bradford MD [facility] [place] [address] PCP - General Family Medicine 01/14/14 Channel Lip Stiffener Insoles Relationship Specialty Start Date End Date Homer Bradford MD [facility] [place] [address] PCP - General Family Medicine 01/14/14 Channel Lip Stiffener Insoles Relationship Specialty Start Date End Date Homer Bradford MD [address] [place] [address] [place] [address] PCP - General Family Medicine 01/14/14 Channel Lip Stiffener Insoles Relationship Specialty Start Date End Date Homer Bradford MD [address] [facility] [address] PCP - General Family Medicine 01/14/14 Channel Lip Stiffener Insoles Relationship Specialty Start Date End Date Homer Bradford MD [address] [facility] [place] [address] PCP - General Family Medicine 01/14/14 Channel Lip Stiffener Insoles Relationship Specialty Start Date End Date Homer Bradford MD [address] [facility] [place] [address] PCP - General Family Medicine 01/14/14 Team [...] Dr. Ortiz Pinto MD Emergency Provider Active [employer] Stiffener Insoles Relationship Specialty Start Date End Date Homer Bradford MD [address] [facility] [place] [address] PCP - General Family Medicine 01/14/14 Channel Lip Stiffener Insoles Relationship Specialty Start Date End Date Homer Bradford MD [address] [facility] [place] [address] PCP - General Family Medicine 01/14/14 Channel Lip Stiffener Insoles Relationship Specialty Start Date End Date Homer Bradford MD [address] [facility] [place] [address] PCP - General Family Medicine 01/14/14 Channel Lip Stiffener Insoles Relationship Specialty Start Date End Date Homer Bradford MD [address] [facility] [place] [address] PCP - General Family Medicine 01/14/14 Channel Lip Stiffener Insoles Relationship Specialty Start Date End Date Homer Bradford MD [address] [place] [address] PCP - General Family Medicine 01/14/14 Channel Lip Stiffener Insoles Relationship Specialty Start Date End Date Homer Bradford MD [address] [place] [address] PCP - General Family Medicine 01/14/14 Channel Lip Stiffener Insoles Relationship Specialty Start Date End Date Homer Bradford MD [address] [place] [address] PCP - General Family Medicine 01/14/14 Channel Lip Stiffener Insoles Relationship Specialty Start Date End Date Homer Bradford MD [address] [place] [address] PCP - General Family Medicine 01/14/14 Channel Lip Stiffener Insoles Relationship Specialty Start Date End Date Homer Bradford MD [address] [place] [address] PCP - General Family Medicine 01/14/14 Channel Lip Stiffener Insoles Relationship Specialty Start Date End Date Homer Bradford MD [address] [place] [address] PCP - General Family Medicine 01/14/14 Team Status: Inactive Member Role Status Dates Dr. Homer Bradford MD Primary Care Provider Active Taylor Julian [employer]PER[employer]OR, [employer] SUPERVISOR-C Attending Provider, Refervaishali michel Provider Active Team Status: Inactive Member Role Status Dates Dr. Homer Bradford MD Primary Care Provider Active Dr. Frank Monroe MD Attending Provider, Emergency Provider Active [employer]oles Relationship Specialty Start Date End Date Homer Bradford MD [address] [place] [address] PCP - General Family Medicine 01/14/14 Channel Lip Stiffener Insoles Relationship Specialty Start Date End Date Homer Bradford MD [address] [place] [address] PCP - General Family Medicine 01/14/14 Channel Lip Stiffener Insoles Relationship Specialty Start Date End Date Homer Bradford MD [address] [place] [address] PCP - General Family Medicine 01/14/14 Team Status: Inactive Member Role Status Dates Dr. Homer Bradford MD Primary Care Provider, Referri Provider Active Taylor Julian [employer] SUPERVISOR, [employer] SUPERVISOR-C Attending Provider Active [employer] St[employer]ener Insoles Relationship Specialty Start Date End Date Homer Bradford MD [address] [place] [address] PCP - General Family Medicine 01/14/14 Channel Lip Stiffener Insoles Relationship Specialty Start Date End Date Homer Bradford MD [address] [place] [address] PCP - General Family Medicine 01/14/14 Channel Lip Stiffener Insoles Relationship Specialty Start Date End Date Homer Bradford MD [address] [place] [address] PCP - General Family Medicine 01/14/14 Channel Lip Stiffener Insoles Relationship Specialty Start Date End Date Homer Bradford MD [address] [place] [address] PCP - General Family Medicine 01/14/14 Channel Lip Stiffener Insoles Relationship Specialty Start Date End Date Homer Bradford MD [address] [place] [address] PCP - General Family Medicine 01/14/14 Channel Lip Stiffener Insoles Relationship Specialty Start Date End Date Homer Bradford MD [address] [place] [address] PCP - General Family Medicine 01/14/14 Channel Lip Stiffener Insoles Relationship Specialty Start Date End Date Homer Bradford MD [address] [place] [address] PCP - General Family Medicine 01/14/14 Channel Lip Stiffener Insoles Relationship Specialty Start Date End Date Homer Bradford MD [address] [place] [address] PCP - General Family Medicine 01/14/14 Channel Lip Stiffener Insoles Relationship Specialty Start Date End Date Homer Bradford MD [address] [place] [address] PCP - General Family Medicine 01/14/14 Channel Lip Stiffener Insoles Relationship Specialty Start Date End Date Homer Bradford MD [address] [place] [address] PCP - General Family Medicine 01/14/14 Channel Lip Stiffener Insoles Relationship Specialty Start Date End Date Homer Bradford MD [address] [place] [address] PCP - General Family Medicine 01/14/14 Team Status: Inactive Member Role Status Dates Dr. Homer Bradford MD Primary Care Provider Active Dr. Jennifer Alba MD Attending Provider, Brie johnson Active [employer] Stiffener Insoles Relationship Specialty Start Date End Date Homer Bradford MD [address] [place] [address] PCP - General Family Medicine 01/14/14 Channel Lip Stiffener Insoles Relationship Specialty Start Date End Date Homer Bradford MD [address] [place] [address] PCP - General Family Medicine 01/14/14 Channel Lip Stiffener Insoles Relationship Specialty Start Date End Date Homer Bradford MD [address] [place], [place] [address] PCP - General Family Medicine 01/14/14 Channel Lip Stiffener Insoles Relationship Specialty Start Date End Date Homer Bradford MD [address] [place], [place] [id number] PCP - General Family Medicine 01/14/14 Mone Dupont APRN.RDA [address] [place], [place] [id number] [facility] 06/23/24 Meagan Yusuf PA-C [address] [place], [place] [id number] [facility] Team Status: Active Member Role Status Dates Dr. Homer Bradford MD Primary Care Provider Active Team Status: Active Member Role Status Dates Broderick Minor Primary Care Provider Active St art: January 07, 2012 Broderick Minor Family Provider Active Start: J 2011 Team Status: Inactive Member Role Status [...] Other Provider Active Start: Madyson faulkner 2024 End: September 21, 2024 Dr. Kristen [...] Butcher MD Other Provider Active Start[facility] Dr. Krsiten Simons MD Other Provider Active Start: September [...] Jonathan Butcher MD Other Provider Active Start: [facility] 2024 Dr. Kristen Simons MD Other Provider [...] Jonathan Butcher MD Other Provider Active Start: [facility] [address]24 Dr. Kristen Simons MD Other Provider [...] Jonathan Butcher MD Other Provider Active Start: [facility] [address]24 Dr. Kristen Simons MD Other Provider [...] Jonathan Butcher MD Other Provider Active Start: [facility] [address] Dr. Kristen Simons MD Other Provider [...] Jonathan Butcher MD Other Provider Active Start: [facility] [address] Dr. Kristen Simons MD Other Provider [...] Jonathan Butcher MD Other Provider Active Start: [facility] [address] Dr. Kristen Simons MD Other Provider [...] Jonathan Butcher MD Other Provider Active Start: [facility] [address] Dr. Kristen Simons MD Other Provider [...] Jonathan Butcher MD Other Provider Active Start: [facility] [address] Dr. Kristen Simons MD Other Provider Active Start: September 21, 2024 Leyda Celis MD Other Provider Active Start : September 21, 2024 Dr. Hodan Chapa DO Other Provider Active St art: September 21, 2024 Dr. Leah Hartman MD Other Provider Active Start: September 21, 2024 Dr. Long Zmaarripa MD Other Provider Active Sta rt: September [...] Attending Provider Active Start: November 04, 2024 [employer] Stiffener Insoles Relationship Specialty Start Date End Date Homer Bradford MD [address] [place], [place] [id number] PCP - General Family Medicine 10/22/24 Mone Dupnot APRN.RDA [address] [place] [address] [facility] 06/23/24 Meagan Yusuf PA-C [address] [place] [address] [facility] 06/23/24 [employer]oles Relationship Specialty Start Date End Date Homer Bradford MD [address] [place] [address] PCP - General Family Medicine 10/22/24 Mone Dupont APRN.RDA [facility] [place] [address] [facility] 06/23/24 Meagan Yusuf PA-C [address] [place] [address] [facility] 06/23/24 [employer]iff[employer] Insoles Relationship Specialty Start Date End Date Homer Bradford MD [address] [place] [address] PCP - General Family Medicine 10/22/24 Meagan Yusuf PA-C [address] [place] [address] [facility] [employer]oles Relationship Specialty Start Date End Date Homer Bradford MD [address] [place] [address] PCP - General Family Medicine 10/22/24 Mone Dupont APRN.RDA [facility] [place] [address] [facility] 12/17/24 Meagan Yusuf PA-C [address] [place] [address] [facility] 12/17/24 [employer]oles Relationship Specialty Start Date End Date Homer Bradford MD [address] [place] [address] PCP - General Family Medicine 10/22/24 Mone Dupont APRN.RDA [address] [place] [address] [facility] 12/17/24 Meagan Yusuf PA-C [address] [place] [address] [facility] 12/17/24 [employer]oles Relationship Specialty Start Date End Date Homer Bradford MD [address] [place] [address] PCP - General Family Medicine 10/22/24 Mone Dupont APRN.RDA [facility] [place] [address] [facility] 12/17/24 Meagan Yusuf PA-C [address] [place] [address] [facility] 12/17/24 [employer] Insoles Relationship Specialty Start Date End Date Homer Bradford MD [address] [place] [address] PCP - General Family Medicine 10/22/24 Mone Dupont, LIBRARY DIRECTOR.RDA [address] [place] [address] [facility] 12/17/24 Meagan Yusuf PA-C [address] [place] [address] [facility] 12/17/24 Team Status: Inactive Member Role Status [...] art: November 07, 2024 Dr. Azam Guillen , Attending Provider Active Start: November 07, 2024 Dr. Azam Guillen , Other Provider Active S tart: November 07, 2024 Team Status: Inactive Member Role Status Dates Dr. Homer Bradford MD Primary Care Provider Active Start: November 12, 2024 End: November 12, 2024 Randy aCbrales MD Attending Provider Active Star t: November 12, 2024 End: November 12, 2024 Randy Cabrales MD Emergency Provider Active Star t: November 12, 2024 End: November 12, 2024 Team Status: Inactive Member Role Status Dates Dr. Homer Bradford MD Primary Care Provider Active Start: November 14, 2024 End: November 14, 2024 Dr. Wytat Amos DO Attending Provider Activ e Start: [...] Attending Provider Active Start: January 08, 2025 [employer] Relationship Specialty Start Date End Date Homer Bradford MD [address] [place] [address] PCP - General Family Medicine 10/22/24 Mone Dupont APRN.CNP [address] [place] [address] [facility] 12/17/24 Meagan Yusuf PA-C [address] [place] [address], [place] [address] [facility] 12/17/24 Team Status: Active Member [...] Jonathan Butcher MD Other Provider Active Start: [facility]2024 End: September 21, 2024 Dr. Kristen Simons [...] Provider Active Start: September 14, 2024 Dr. Sutart Balbuena MD Other Provider Active Start : [...] Jonathan Butcher MD Other Provider Active Start: [facility] 2024 Dr. Kristen Simons MD Other Provider [...] Jonathan Butcher MD Other Provider Active Start: [facility] 2024 Dr. Kristen Simons MD Other Provider [...] Jonathan Butcher MD Other Provider Active Start: [facility] 2024 Dr. Kristen Simons MD Other Provider [...] Jonathan Butcher MD Other Provider Active Start: [facility] [address] Dr. Kristen Simons MD Other Provider [...] Jonathan Butcher MD Other Provider Active Start: [facility] 2024 Dr. Kristen Simons MD Other Provider [...] Jonathan Butcher MD Other Provider Active Start: [facility] 2024 Dr. Kristen Simons MD Other Provider [...] t: September 21, 2024 Dr. Wilfredo Denton , Admit Provider Active Star t: September 21, 2024 Dr. Wilfredo Denton DO Other Provider Active Star t: September 21, 2024 Jonathan Butcher MD Other Provider Active Start: [facility] 2024 Dr. Kristen Simons MD Other Provider [...] January 11, 2025 Dr. Luis Antonio Navarro , Other Provider Active Start: January 08, 2025 [...] Active Start: January 09, 2025 Dr. Elijah Blaek MD Other Provider Active Start: January 09, [...] Other Provider Active Start: January 11, 2025 [employer]oles Relationship Specialty Start Date End Date Homer Bradford MD [address] [place] [address] PCP - General Family Medicine 10/22/24 Mone Dupont APRN.RDA [address] [place] [address] [facility] 12/17/24 Meagan Yusuf PA-C [address] [place] [address] [facility] 12/17/24 [employer] Insoles Relationship Specialty Start Date End Date Homer Bradford MD [address] [place] [address] PCP - General Family Medicine 10/22/24 Mone Dupont, JACKIE.RDA [address] [place] [address] [facility] 12/17/24 Meagan Yusuf PA-C [address] [place] [address] [facility] 12/17/24 [employer] St[employer] Insoles Relationship Specialty Start Date End Date Homer Bradford MD [address] [place] [address] PCP - General Family Medicine 10/22/24 Mone Dupont APRN.RDA [address] [place] [address] [facility] 12/17/24 Meagan Yusuf PA-C [address] [place] [address] [facility] 12/17/24 [employer] St[employer] Insoles Relationship Specialty Start Date End Date Homer Bradford MD [address] [place] [address] PCP - General Family Medicine 10/22/24 Mone Dupont APRN.RDA [address] [place] [address] [facility] 12/17/24 Meagan Yusuf PA-C [address] [place] [id number] [facility] 12/17/24 Team Status: Active Member Role/Relationship Status [...] End: January 31, 2025 Taylor Julian NP, [employer] SUPERVISOR-C Attending Provider Active Start: January 31, 2025 End: January 31, 2025 Team Status: Inactive Member Role/Relationship Status Dates Dr. Homer Bradford MD Primary Care Provider Active Start: January 15, 2025 Dr. Jennifer Alba MD Attending Provider Active Start: January 15, 2025 Team Status: Inactive Member Role/Relationship Status Dates Dr. Homer Bradofrd MD Primary Care Provider Active Start: 2025 [...] End: January 31, 2025 Taylor Julian NP, [employer] SUPERVISOR-C Attending Provider Active Start: January 31, 2025 [...] February 27, 2025 End: February 27, 2025 [employer]oles Relationship Specialty Start Date End Date Homer Bradford MD [address] [place] [address] PCP - General Family Medicine 10/22/24 Mone Dupont APRN.RDA [address] [place] [id number] [facility] 12/17/24 Meagan Yusuf PA-C [address] [place] [phone] [facility] 12/17/24 Team Status: Inactive Member Role/Relationship Status [...] 2025 End: January 31, 2025 Taylor Julian [employer] SUPERVISOR, [employer] SUPERVISOR-C Attending Provider Active Start: January 31, 2025 [...] March 11, 2025 End: March 11, 2025 Channel [employer] Stiffener Insoles Relationship Specialty Start Date End Date Homer Bradford MD [address] [place] [id number] PCP - General Family Medicine 10/22/24 Mone Dupont APRN.CNP [address] [place] [address] [phone] [facility] 12/17/24 Meagan Yusuf PA-C [address] [place] [address] [phone] [facility] 12/17/24 Team Status: Inactive Member Role/Relationship Status [...] 2025 End: January 31, 2025 Taylor Julian [employer] SUPERVISOR, [employer] SUPERVISOR-C Attending Provider Active Start: January 31, 2025 [...] March 11, 2025 End: March 11, 2025 Channel [employer] Stiffener Insoles Relationship Specialty Start Date End Date Homer Bradford MD [address] [place], [place] [id number] PCP - General Family Medicine 10/22/24 Mone Dupont, JACKIE.CHIRAG [address] [place], [place] [id number] [facility] 12/17/24 Meagan Yusuf PA-C [address] [place] [address] [phone] [facility] 12/17/24 [employer] Stiffener Insoles Relationship Specialty Start Date End Date Homer Bradford MD [address] [place], [place] [id number] PCP - General Family Medicine 10/22/24 Mone Dupont APRN.CHIRAG [address] [place], [place] [address] [facility] 12/17/24 Meagan Yusuf PA-C [address] [place] [address] [facility] 12/17/24 Team Status: Active Member Role/Relationship Status [...] Start: January 09, 2025 Dr. Dallin Christopher , Nurse Practitioner Active S tart: January 09, 2025 Dr. Matt Tran MD Nurse Practitioner Active Start: January 09, 2025 Dr. Matt Rodrigeus MD Nurse Practitioner Active Start: January 09, [...] 10, 2025 Dr. Wilfredo Shelby MD Attending physician Active Start: January 10, [...] 2025 End: January 31, 2025 Taylor Julian [employer] SUPERVISOR, [employer] SUPERVISOR-C Attending physician Active Start: January 31, 2025 [...] March 19, 2025 End: April 16, 2025 YADIRA Baumann Referring Provider Active Start: March 19, 2025 [...] 2025 End: January 31, 2025 Taylor Julian [employer] SUPERVISOR, [employer] SUPERVISOR-C Attending physician Active Start: January 31, 2025 [...] 2025 Dr. Ortiz Pinto MD Emergency Depart [facility] Physician Active Start: April 30, 2025 End: [...] BE BASED ON THE PRIMARY CLINICAL RECORDS. [employer] [facility]. provides no warranty or guarantee of the accuracy or completeness of information in this document.
[2025-06-30 14:13] LABS: Pro- Brain NATRIURETIC PEPTIDE 148 pg/mL (<=900); Troponin T High Sensitivity 27 ng/L (<=14)
[2025-06-30 14:15] LABS: Anion Gap 16 (5-15); BUN 11 mg/dL (4-19); BUN/Creat Ratio 7.9 RATIO (10-20); Calcium,Total 9.4 mg/dL (7.6-11.0); Carbon Dioxide 23.5 mmol/L (21.0-32.0); Chloride 101 mmol/L (98-108); Glucose 108 mg/dL (70-99); Potassium 2.7 mmol/L (3.3-5.1)
[2025-06-30] MEDS: Azithromycin 500 MG in 0.9% Normal Saline (250mL Bag) 250 ML 250 MG IV (14:15)
[2025-06-30] MEDS: 0.9% Normal Saline (1000mL) 1,000 ML 1000 ML IV (14:23)
[2025-06-30] MEDS: Potassium Chloride Oral Tablet 20 MEQ 60 MEQ PO (14:54)
[2025-06-30 16:03] LABS: Troponin T High Sens 2 HR 27 ng/L (<=14)
--- OUTSIDE RECORDS SUMMARY | 2025-06-30 16:05 | XMS RPT_ITS | CCD ---
Author Organization [facility] Inform ion Partnership [facility] [place] [facility] Care Team Providers Care Foot Tender Name Role Phone oDrothy Fletcher MD Unavailable [phone] Homer Bradford MD [...] Dr. Homer Bradford Referring Provider Eliel DILL, PAPER STRIPPER-C Taylor Attending Provider HOMER BRADFORD MD Primary Care Physician Dr. Homer Bradford Primary Care Provider Dr. Dallin Christopher Attending Provider Dr. Dallin Christopher Referring Provider Dr. Dallin Christopher Other Provider Dr. Shahram Sarmiento Attending Provider Dr. Homer Bradford Referring Provider Eliel DILL, PAPER STRIPPER-C Taylor Attending Provider Homer Bradford MD Primary Care Provider Homer Bradford MD Primary Care Provider Dr. Homer Bradford Primary Care Provider Dr. Homer Bradford Referring Provider Eliel DILL, PAPER STRIPPER-C Taylor Attending Provider Homer Bradford MD Primary Care Provider Homer Bradford MD Primary Care Provider Kiah MEJIA.SAFETY COMPLIANCE SPECIALIST, Mone Unavailable Meagan Yusuf PA-C Unavailable Brodreick Minor Primary Care Provider [phone] Dr. Homer Bradford MD Primary Care Provider Randy Cabrales MD Emergency Provider [phone] Wilfredo Denton DO Admit Provider Dr. Wilfredo Denton DO Other Provider Jonathan Butcher MD Other Provider Unavailable Ronak GUSTAFSON, Dr. Peterson Other Provider Leyda Celis MD Other Provider Unavailable Dr. Hodan Chapa DO Other Provider [phone] Dr. Leah Hartman MD Other Provider Marilou GUSTAFSON, Dr. Alves Other Provider Isreal GUSTAFSON, Dr. Wemes Other Provider Alba GUSTAFSON, Dr. England Other [...] Sanchez GUSTAFSON, Homer Trujillo Primary Care Provider Kiah MEJIA.SAFETY COMPLIANCE SPECIALIST, Mone Unavailable Paramjit CORRALES, Meagan Unavailable Broderick [...] Provider Minnie GUSTAFSON, Dr. Lynn Other Provider [phone] Marilou GUSTAFSON, Dr. Alves Other Provider Isreal GUSTAFSON, Dr. Weems Other Provider Alba GUSTAFSON, Dr. England Other Provider [phone] Dr. Stuart Balbuena MD Other Provider [...] Provider Lilia GUSTAFSON, Dr. Gutierrez Other Provider [phone] Tom GUSTAFSON, Dr. Quintero Other Provider Blake GUSTAFSON, Dr. Celis Other Provider [phone] Khushi GUSTAFSON, Dr. Wright Other Provider [phone] Khari GUSTAFSON, Dr. Galvez Other Provider [phone] Kingsley GUSTAFSON, Dr. Hahn Other Provider Jourdan GUSTAFSON, Dr. Garcia Other Provider Rishabh GUSTAFSON, Dr. Ludwig Other Provider [facility]ay[facility]ree Lamb MD, Dr. Terry Other Provider [phone] Chuck GUSTAFSON, Dr. Avelar Other Provider Bakari GUSTAFSON, Dr. Marte Other Provider [phone] Guille GUSTAFSON, Dr. Carter Other Provider [phone] Elisabeth NOVAK, Dr. Bush Other Provider Rosalinda GUSTAFSON, Dr. Sotelo Other Provider [phone] Aaron GUSTAFSON, Dr. Waldrop Other Provider Magy [...] Sanchez GUSTAFSON, Dr. Coronel Referring Provider Eliel PAPER STRIPPER-C, Taylor Attending Provider Anjali GUSTAFSON, Dr. Rodriguez [...] Provider Tom GUSTAFSON, Dr. Quintero Other Provider Blake GUSTAFSON, Dr. Celis Other Provider Khushi GUSTAFSON, Dr. Wright Other Provider Khari GUSTAFSON, Dr. Galvez Other Provider [phone] Queta Wynn MD, Dr. Hahn Other Provider Jourdan GUSTAFSON, Dr. Garcia Other Provider Rishabh GUSTAFSON, Dr. Ludwig Other Provider Unavailricha Lamb MD, Dr. Terry Other Provider Chuck GUSTAFSON, Dr. Avelar Other Provider Bakari GUSTAFSON, Dr. Marte Other Provider Guille GUSTAFSON, Dr. Carter Other Provider Elisabeth NOVAK, Dr. Bush Other Provider Rosalinda GUSTAFSON, Dr. Sotelo Other Provider Aaron GUSTAFSON, Dr. Waldrop Other Provider [phone] Magy NOVAK, Dr. Salazar Other Provider Sergio [...] Dr. Coronel Primary Care Physician Dr. Issa Chapin MD Emergency Department Physician Dane GUSTAFSON, Dr. Lauren Barajas Admitting Physician Dane GUSTAFSON, Dr. Lauren Barajas Nurse Practitioner Keon GUSTAFSON, Dr. Green Attending Physician Ramon NOVAK, Dr. Salmon Nurse Practitioner Ramon NOVAK, Dr. Salmon Attending Physician Lou GUSTAFSON, Dr. Nava Nurse Practitioner [phone] Teri GUSTAFSON, Dr. Bowman Nurse Practitioner [phone] Torsten GUSTAFSON, Dr. Omalley Nurse Practitioner [phone] Ashwin NOVAK, Dr. Zamarripa Nurse Practitioner Marc GUSTAFSON, Dr. Matt Candelario Nurse Practitioner [phone] Lilia GUSTAFSON, Dr. Gutierrez Nurse Practitioner Tom GUSTAFSON, Dr. Quintero Nurse Practitioner [phone] Blake GUSTAFSON, Dr. Celis Nurse Practitioner Khushi GUSTAFSON, Dr. Wright Nurse Practitioner [phone] Khari GUSTAFSON, Dr. Galvez Nurse Practitioner [phone] Kingsley GUSTAFSON, Dr. Hahn Nurse Practitioner [phone] Jourdan GUSTAFSON, Dr. Garcia Nurse Practitioner [phone] Rishabh GUSTAFSON, Dr. Ludwig Nurse Practitioner [facility] Zainab GUSTAFSON, Dr. Terry Nurse Practitioner [phone] Chuck GUSTAFSON, Dr. Avelar Nurse Practitioner [phone] Bakari GUSTAFSON, Dr. Marte Nurse Practitioner Guille GUSTAFSON, Dr. Carter Nurse Practitioner [phone] Elisabeth NOVAK, Dr. Bush Nurse Practitioner Rosalinda GUSTAFSON, Dr. Sotelo Nurse Practitioner [phone] Aaron GUSTAFSON, Dr. Waldrop Nurse Practitioner Magy NOVAK, Dr. Salazar Nurse Practitioner [phone] Sergio GUSTAFSON, Dr. Dhillon Nurse Practitioner Jesus GUSTAFSON, Dr. Perry Nurse Practitioner Keon GUSTAFSON, Dr. Green Nurse Practitioner Ashwin NOVAK, Dr. Zamarripa Attending Physician Afsaneh GUSTAFSON, Dr. Villalobos Attending Physician Anjali GUSTAFSON, Dr. Rodriguez Attending Physician Kate GUSTAFSON, Dr. Vijay Trujillo Attending Physician Kate GUSTAFSON, Dr. Vijay Trujillo Nurse Practitioner Eliel PAPER STRIPPER-C, Taylor Attending Physician [phone] Sanchez GUSTAFSON, Dr. Coronel Primary Care Physician Blair GUSTAFSON, Dr. Alcantar Attending Physician Blair GUSTAFSON, Dr. Alcantar Emergency Department Phys ician Meagan Heredia Referring Unavailable Vijay oLve Attending Unavailable Sanchez, Homer Primary Care Unavailable [...] Unavailable Sanchez, Homer Primary Care Unavailable Eliel PAPER STRIPPER, Taylor Attending Unavailable Sanchez, Homer Primary Care [...] [employer] Unavailable Mukesh Cope Consulting Unavailable Jsaper Au Consulting Unavailable Reggie Byers Consulting Unavailable [...] carBAMazepine Drug Allergy 02-13-20 14 GI Upset [facility] Anticholinergics (1 source) Benztropine Drug Allergy 02-13-20 14 Unknown [facility] Aspirin (1 source) Aspirin Drug Allergy 01-05-20 23 Unknown [facility] Work Phone: Benzodiazepines (1 source) diazePAM Drug Allergy 02-13-20 14 Unknown [facility] Opioid Agonists (1 source) Loperamide Drug Allergy 05-23-20 18 Other: See Comments [facility] Penicillins (antibiotic) (1 source) Penicillins Drug Allergy 03-30-20 06 Hives [facility] Streptococcus pneumoniae type 1 capsular polysaccharide antigen [...] polysaccharide antigen Drug Allergy 12-26-19 15 Intolerance [facility] Sulfonamides (antibiotic) (1 source) Sulfonamides (Antibiotic) Drug Allergy 11-24-19 16 GI Upset [facility] Thioridazine (1 source) [facility]idazine [facility] Benztropine; Translations: [BENZTROPINE] Drug Allergy 02-13-20 14 Unknown [facility] Work Phone: (20 sources) carBAMazepine; Translations: [CARBAMAZEPINE] Drug Allergy 02-13-20 14 GI Upset [facility] Work Phone: (20 sources) diazePAM; Translations: [DIAZEPAM] Drug Allergy 02-13-20 14 Unknown [facility] Work Phone: (20 sources) Loperamide; Translations: [loperamide] Drug Allergy 05-23-20 18 Other: See Comments [facility] Work Phone: (20 sources) Penicillins; Translations: [penicillins] Drug Allergy 03-30-20 06 Hives [facility] Work Phone: (20 sources) Streptococcus pneumoniae type [...] PS VACCINE] Drug Allergy 12-26-19 15 Intolerance [facility] Work Phone: (20 sources) Sulfonamides (Antibiotic); Translations: [sulfa drugs] Drug Intolerance 11-24-19 [facility] ([facility] sources) Thioridazine; Translations: [THIORIDAZINE] Drug Allergy 02-13-20 [facility]: (20 sources) Tetanus, Diphtheria Tox Absorb Adult,Child Booster; Translations: [TETANUS, DIPHTHERIA TOX ABSORB ADULT,CHILD BOOSTER] Drug Allergy 12-29-19 15 Swelling [facility] Work Phone: (20 sources) Thioridazine; Translations: [thioridazine HCl] Drug Allergy 08-25-19 22 Other [facility] (20 sources) Aspirin; Translations: [aspirin] Drug Allergy 01-05-20 23 [facility] Comment on above: Rash if aspirin is n ot coated (20 sources) Penicillins Drug Allergy 03-30-20 06 [facility] Work Phone: (17 sources) Penicillins Allergy to substance 09-12-19 23 [facility] (17 sources) Sulfonamides (Antibiotic) Propensity to adverse reactions 09-12-19 23 Nausea [facility] (20 sources) Penicillins Drug Allergy 03-30-20 [facility] (1 source) Benztropine Drug Allergy 05-24-20 25 [facility] Repository (1 source) carBAMazepine Drug Allergy 05-24-20 25 [facility] Repository (1 source) diazePAM Drug Allergy 05-24-20 25 [facility] Repository (1 source) Penicillins Drug allergy (disorder) 05-24-20 25 [facility] (1 source) Sulfonamides (Antibiotic) Drug allergy (disorder) 05-24-20 25 [facility] (1 source) Thioridazine Drug Allergy 05-24-20 25 [facility] Repository Medications Current Medications Medication Drug Class(es) Dates Sig (Normalized) Sig (Original) [id number] 200 actuat albuterol 0.09 mg/actuat metered dose [...] bedtime, # 30 tab(s), 5 Refill(s), Pharmacy: [place] [id number], 160, cm, 12/09/21 15:05:00 EDT, Height, kg, [...] Comment on above: Take [address] [facility] once daily. phenylephrine hydrochloride 25 mg/ml ophthalmic [...] Comment on above: Take 1 tablet by [facility] once daily for 7 days. predniSONE [...] 5:24pm Start: 11-07-2024 take [address] [facility] twice daily Start: 09-12-2024 End: 11-07-2024 take [...] Comment on above: Take [address] [facility] twice daily. Take [address] [facility] once daily. Take [address] [facility] twice daily. Per NeuroDr. Calderón atorvastatin 10 [...] Comment on above: Take 1 tablet by [facility] twice daily as needed (muscle spasms). [...] extended release oral tablet (8 sources) Uncompetitive B-bzmxjt-P-aspartat e Receptor Antagonist, Sigma-1 Agonist Start: 01-11-2025 [...] capsule (15 sources) Start: 03-04-2023 End: 11-07-2024 [place]-3 Fatty Acids-Fish Oil (Fish Oil) 360-1,200 mg capsule Discontinued 1 NMA PO TWICE A DAY March 04, 2023 12:00am November 07, 2024 4:43pm Joints Start: 03-04-2023 End: 11-07-2024 Start: 03-04-2023 take 1 capsule by mouth once d aily [place]-3 Fatty Acids-Fish Oil (Fish Oil) 360-1,200 mg capsule Active 1 CAP PO DAILY March 04, 2023 12:00am docusate sodium 50 mg / sennosides, mcfp 8.6 mg oral tablet (9 sources) Start: [...] unknown (3 sources) No information available. nystatin [id number] unt/ml topical cream (1 source) Polyene Antifungal [...] January 08, 2025 5:23pm polyethylene glycol 3350 42440 mg powder for oral solution (20 sources) [...] Chloride ([place]) 0.65 % Aerosol,[place] Discontinued 2 NMA NASAL 3 TIMES DAILY NEEDED as needed for NASAL DRYNESS 0 0 September 07, 2021 1:00am March 04, 2023 11:23am Start: 09-07-2021 End: 03-04-2023 Sodium Chloride ([place]) 0.65 % Aerosol,[place] Discontinued 2 SPRAY NASAL 3 TIMES DAILY [...] sources) Anticholinergic Start: 01-14-2014 End: 06-22-2017 Tiotropium [place] 1 PUFF inhaler Discontinued 1 NMA INHALATION DAILY January 14, 2014 12:00am June 22, 2017 2:44pm Start: 01-14-2014 End: 06-22-2017 Start: 01-14-2014 End: 06-22-2017 take 1 puff(s) by inhalation once daily Tiotropium [place] Discontinued 1 PUFF INHALATION DAILY January 14, [...] Acute and unspecified renal failure (17 sources) Zwfqd-ol-pfhquxg renal failure; Translations: [Acute kidney failure, unspecified] [...] Coronary arteriosclerosis; Translations: [Atherosclerotic heart disease of [place] coronary artery without angina pectoris] Onset: 5 [...] Other aftercare (1 source) 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 Unclassified (1 source) Provide A Ride([phone]) will pick you up at 11-11:30, and [...] Non obstructive CAD per cardiac cath @ [facility] 12/30/20 Residual codes; unclassified (1 source) Localized [...] Profile (BMP )on 06-02-2025 BUN Normal 4-19 [facility] Comment on above: Result Comment: Canc elled via OM: Order cancelled - Patient discharged Performed By: #### L 500.2500, L100.0100 ####[facility] [address] [place], [address] BUN/CRE Normal 10-20 [facility] Comment on above: Result Comment: Canc elled via OM: Order cancelled - Patient discharged Performed By: #### L 500.2500, L100.0100 ####[facility] [address] [place], [address] Calcium Normal 7.6-11.0 [facility] Comment on above: Result Comment: Canc elled via OM: Order cancelled - Patient discharged Performed By: #### L 500.2500, L100.0100 ####[facility] [address] [place], [address] CL Normal 98-108 [facility] Comment on above: Result Comment: Canc elled via OM: Order cancelled - Patient discharged Performed By: #### L 500.2500, L100.0100 ####[facility] [address] [place], [address] CO2 Normal 21.0-32.0 [facility] Comment on above: Result Comment: Canc elled via OM: Order cancelled - Patient discharged Performed By: #### L 500.2500, L100.0100 ####[facility] [address] [place], [address] CREAT,SERUM Normal 0.70-1.20 [facility] Comment on above: Result Comment: Canc elled via OM: Order cancelled - Patient discharged Performed By: #### L 500.2500, L100.0100 ####[facility] [address] [place], [address] eGFR Normal >60 [facility] Comment on above: Result Comment: Canc elled via OM: Order cancelled - Patient discharged Performed By: #### L 500.2500, L100.0100 ####[facility] [address] [place], [address] GAP Normal 5-15 [facility] Comment on above: Result Comment: Canc elled via OM: Order cancelled - Patient discharged Performed By: #### L 500.2500, L100.0100 ####[facility] [address] [place], [address] GLU Normal 70-99 [facility] Comment on above: Result Comment: Canc elled via OM: Order cancelled - Patient discharged Performed By: #### L 500.2500, L100.0100 ####[facility] [address] [place], [address] Potassium Normal 3.3-5.1 [facility] Comment on above: Result Comment: Canc elled via OM: Order cancelled - Patient discharged Performed By: #### L 500.2500, L100.0100 ####[facility] [address] [place], [address] Basic Metabolic Profile (BMP) Normal 133-145 [facility] Comment on above: Result Comment: Canc elled via OM: Order cancelled - Patient discharged Performed By: #### L 500.2500, L100.0100 ####[facility] [address] [place], [address] CBC W/Diff, Automatedon 11-1 Absolute Neut Normal 2.0-7.7 [facility] Comment on above: Result Comment: Canc elled via OM: Order cancelled - Patient discharged Performed By: #### L 500.2500, L100.0100 ####[facility] [address] [place], [address] HCT Normal 37-47 [facility] Comment on above: Result Comment: Canc elled via OM: Order cancelled - Patient discharged Performed By: #### L 500.2500, L100.0100 ####[facility] [address] [place], [address] HGB Normal 12.0-15.0 [facility] Comment on above: Result Comment: Canc elled via OM: Order cancelled - Patient discharged Performed By: #### L 500.2500, L100.0100 ####[facility] [address] [place], [address] MCH Normal 27.0-32.0 [facility] Comment on above: Result Comment: Canc elled via OM: Order cancelled - Patient discharged Performed By: #### L 500.2500, L100.0100 ####[facility] [address] [place], [address] MCHC Normal 32-36 [facility] Comment on above: Result Comment: Canc elled via OM: Order cancelled - Patient discharged Performed By: #### L 500.2500, L100.0100 ####[facility] [address] [place], [address] MCV Normal 81-99 [facility] Comment on above: Result Comment: Canc elled via OM: Order cancelled - Patient discharged Performed By: #### L 500.2500, L100.0100 ####[facility] [address] [place], [address] NEUT% Normal 47-70 [facility] Comment on above: Result Comment: Canc elled via OM: Order cancelled - Patient discharged Performed By: #### L 500.2500, L100.0100 ####[facility] [address] [place], [address] PLT Normal 150-450 [facility] Comment on above: Result Comment: Canc elled via OM: Order cancelled - Patient discharged Performed By: #### L 500.2500, L100.0100 ####[facility] [address] [place], [address] RBC Normal 4.2-5.4 [facility] Comment on above: Result Comment: Canc elled via OM: Order cancelled - Patient discharged Performed By: #### L 500.2500, L100.0100 ####[facility] [address] [place], [address] RDW CV Normal 11.6-14.6 [facility] Comment on above: Result Comment: Canc elled via OM: Order cancelled - Patient discharged Performed By: #### L 500.2500, L100.0100 ####[facility] [address] [place], [address] RDW SD Normal 35.1-43.9 [facility] Comment on above: Result Comment: Canc elled via OM: Order cancelled - Patient discharged Performed By: #### L 500.2500, L100.0100 ####[facility] [address] [place], [address] WBC Normal 4.4-11.0 [facility] Comment on above: Result Comment: Canc elled via OM: Order cancelled - Patient discharged Performed By: #### L 500.2500, L100.0100 ####[facility] [address] [place], [address] Basic Metabolic Profile (BMP )on 06-01-2025 BUN Normal 4-19 [facility] Comment on above: Result Comment: Canc elled via OM: Order cancelled - Patient discharged Performed By: #### L 100.0100, L500.2500 ####[facility] [address] [place], [address] BUN/CRE Normal 10-20 [facility] Comment on above: Result Comment: Canc elled via OM: Order cancelled - Patient discharged Performed By: #### L 100.0100, L500.2500 ####[facility] [address] [place], [address] Calcium Normal 7.6-11.0 [facility] Comment on above: Result Comment: Canc elled via OM: Order cancelled - Patient discharged Performed By: #### L 100.0100, L500.2500 ####[facility] [address] [place], [address] CL Normal 98-108 [facility] Comment on above: Result Comment: Canc elled via OM: Order cancelled - Patient discharged Performed By: #### L 100.0100, L500.2500 ####[facility] [address] [place], [address] CO2 Normal 21.0-32.0 [facility] Comment on above: Result Comment: Canc elled via OM: Order cancelled - Patient discharged Performed By: #### L 100.0100, L500.2500 ####[facility] [address] [place], [address] CREAT,SERUM Normal 0.70-1.20 [facility] Comment on above: Result Comment: Canc elled via OM: Order cancelled - Patient discharged Performed By: #### L 100.0100, L500.2500 ####[facility] [address] [place], [address] eGFR Normal >60 [facility] Comment on above: Result Comment: Canc elled via OM: Order cancelled - Patient discharged Performed By: #### L 100.0100, L500.2500 ####[facility] [address] [place], [address] GAP Normal 5-15 [facility] Comment on above: Result Comment: Canc elled via OM: Order cancelled - Patient discharged Performed By: #### L 100.0100, L500.2500 ####[facility] [address] [place], [address] GLU Normal 70-99 [facility] Comment on above: Result Comment: Canc elled via OM: Order cancelled - Patient discharged Performed By: #### L 100.0100, L500.2500 ####[facility] [address] [place], [address] Potassium Normal 3.3-5.1 [facility] Comment on above: Result Comment: Canc elled via OM: Order cancelled - Patient discharged Performed By: #### L 100.0100, L500.2500 ####[facility] [address] [place], [address] Basic Metabolic Profile (BMP) Normal 133-145 [facility] Comment on above: Result Comment: Canc elled via OM: Order cancelled - Patient discharged Performed By: #### L 100.0100, L500.2500 ####[facility] [address] [place], [address] CBC W/Diff, Automatedon 11-1 Absolute Neut Normal 2.0-7.7 [facility] Comment on above: Result Comment: Canc elled via OM: Order cancelled - Patient discharged Performed By: #### L 100.0100, L500.2500 ####[facility] [address] [place], [address] HCT Normal 37-47 [facility] Comment on above: Result Comment: Canc elled via OM: Order cancelled - Patient discharged Performed By: #### L 100.0100, L500.2500 ####[facility] [address] [place], [address] HGB Normal 12.0-15.0 [facility] Comment on above: Result Comment: Canc elled via OM: Order cancelled - Patient discharged Performed By: #### L 100.0100, L500.2500 ####[facility] [address] [place], [address] MCH Normal 27.0-32.0 [facility] Comment on above: Result Comment: Canc elled via OM: Order cancelled - Patient discharged Performed By: #### L 100.0100, L500.2500 ####[facility] [address] [place], [address] MCHC Normal 32-36 [facility] Comment on above: Result Comment: Canc elled via OM: Order cancelled - Patient discharged Performed By: #### L 100.0100, L500.2500 ####[facility] [address] [place], [address] MCV Normal 81-99 [facility] Comment on above: Result Comment: Canc elled via OM: Order cancelled - Patient discharged Performed By: #### L 100.0100, L500.2500 ####[facility] [address] [place], [address] NEUT% Normal 47-70 [facility] Comment on above: Result Comment: Canc elled via OM: Order cancelled - Patient discharged Performed By: #### L 100.0100, L500.2500 ####[facility] [address] [place], [address] PLT Normal 150-450 [facility] Comment on above: Result Comment: Canc elled via OM: Order cancelled - Patient discharged Performed By: #### L 100.0100, L500.2500 ####[facility] [address] [place], [address] RBC Normal 4.2-5.4 [facility] Comment on above: Result Comment: Canc elled via OM: Order cancelled - Patient discharged Performed By: #### L 100.0100, L500.2500 ####[facility] [address] [place], [address] RDW CV Normal 11.6-14.6 [facility] Comment on above: Result Comment: Canc elled via OM: Order cancelled - Patient discharged Performed By: #### L 100.0100, L500.2500 ####[facility] [address] [place], [address] RDW SD Normal 35.1-43.9 [facility] Comment on above: Result Comment: Canc elled via OM: Order cancelled - Patient discharged Performed By: #### L 100.0100, L500.2500 ####[facility] [address] [place], [address] WBC Normal 4.4-11.0 [facility] Comment on above: Result Comment: Canc elled via OM: Order cancelled - Patient discharged Performed By: #### L 100.0100, L500.2500 ####[facility] [address] [place], [address] Basic Metabolic Profile (BMP )on 05-31-2025 BUN Normal 4-19 [facility] Comment on above: Result Comment: Canc elled via OM: Order cancelled - Patient discharged Performed By: #### L 100.0100, L500.2500 ####[facility] [address] [place], [address] BUN/CRE Normal 10-20 [facility] Comment on above: Result Comment: Canc elled via OM: Order cancelled - Patient discharged Performed By: #### L 100.0100, L500.2500 ####[facility] [address] [place], [address] Calcium Normal 7.6-11.0 [facility] Comment on above: Result Comment: Canc elled via OM: Order cancelled - Patient discharged Performed By: #### L 100.0100, L500.2500 ####[facility] [address] [place], [address] CL Normal 98-108 [facility] Comment on above: Result Comment: Canc elled via OM: Order cancelled - Patient discharged Performed By: #### L 100.0100, L500.2500 ####[facility] [address] [place], [address] CO2 Normal 21.0-32.0 [facility] Comment on above: Result Comment: Canc elled via OM: Order cancelled - Patient discharged Performed By: #### L 100.0100, L500.2500 ####[facility] [address] [place], [address] CREAT,SERUM Normal 0.70-1.20 [facility] Comment on above: Result Comment: Canc elled via OM: Order cancelled - Patient discharged Performed By: #### L 100.0100, L500.2500 ####[facility] [address] [place], [address] eGFR Normal >60 [facility] Comment on above: Result Comment: Canc elled via OM: Order cancelled - Patient discharged Performed By: #### L 100.0100, L500.2500 ####[facility] [address] [place], [address] GAP Normal 5-15 [facility] Comment on above: Result Comment: Canc elled via OM: Order cancelled - Patient discharged Performed By: #### L 100.0100, L500.2500 ####[facility] [address] [place], [address] GLU Normal 70-99 [facility] Comment on above: Result Comment: Canc elled via OM: Order cancelled - Patient discharged Performed By: #### L 100.0100, L500.2500 ####[facility] [address] [place], [address] Potassium Normal 3.3-5.1 [facility] Comment on above: Result Comment: Canc elled via OM: Order cancelled - Patient discharged Performed By: #### L 100.0100, L500.2500 ####[facility] [address] [place], [address] Basic Metabolic Profile (BMP) Normal 133-145 [facility] Comment on above: Result Comment: Canc elled via OM: Order cancelled - Patient discharged Performed By: #### L 100.0100, L500.2500 ####[facility] [address] [place], [address] CBC W/Diff, Automatedon 11- Absolute Neut Normal 2.0-7.7 [facility] Comment on above: Result Comment: Canc elled via OM: Order cancelled - Patient discharged Performed By: #### L 100.0100, L500.2500 ####[facility] [address] [place], [address] HCT Normal 37-47 [facility] Comment on above: Result Comment: Canc elled via OM: Order cancelled - Patient discharged Performed By: #### L 100.0100, L500.2500 ####[facility] [address] [place], [address] HGB Normal 12.0-15.0 [facility] Comment on above: Result Comment: Canc elled via OM: Order cancelled - Patient discharged Performed By: #### L 100.0100, L500.2500 ####[facility] [address] [place], [address] MCH Normal 27.0-32.0 [facility] Comment on above: Result Comment: Canc elled via OM: Order cancelled - Patient discharged Performed By: #### L 100.0100, L500.2500 ####[facility] [address] [place], [address] MCHC Normal 32-36 [facility] Comment on above: Result Comment: Canc elled via OM: Order cancelled - Patient discharged Performed By: #### L 100.0100, L500.2500 ####[facility] [address] [place], [address] MCV Normal 81-99 [facility] Comment on above: Result Comment: Canc elled via OM: Order cancelled - Patient discharged Performed By: #### L 100.0100, L500.2500 ####[facility] [address] [place], [address] NEUT% Normal 47-70 [facility] Comment on above: Result Comment: Canc elled via OM: Order cancelled - Patient discharged Performed By: #### L 100.0100, L500.2500 ####[facility] [address] [place], [address] PLT Normal 150-450 [facility] Comment on above: Result Comment: Canc elled via OM: Order cancelled - Patient discharged Performed By: #### L 100.0100, L500.2500 ####[facility] [address] [place], [address] RBC Normal 4.2-5.4 [facility] Comment on above: Result Comment: Canc elled via OM: Order cancelled - Patient discharged Performed By: #### L 100.0100, L500.2500 ####[facility] [address] [place], [address] RDW CV Normal 11.6-14.6 [facility] Comment on above: Result Comment: Canc elled via OM: Order cancelled - Patient discharged Performed By: #### L 100.0100, L500.2500 ####[facility] [address] [place], [address] RDW SD Normal 35.1-43.9 [facility] Comment on above: Result Comment: Canc elled via OM: Order cancelled - Patient discharged Performed By: #### L 100.0100, L500.2500 ####[facility] [address] [place], [address] WBC Normal 4.4-11.0 [facility] Comment on above: Result Comment: Canc elled via OM: Order cancelled - Patient discharged Performed By: #### L 100.0100, L500.2500 ####[facility] [address] [place], [address] Basic Metabolic Profile (BMP )on 05-30-2025 BUN Normal 4-19 [facility] Comment on above: Result Comment: Canc elled via OM: Order cancelled - Patient discharged Performed By: #### L 500.2500, L100.0100 ####[facility] [address] [place], [address] BUN/CRE Normal 10-20 [facility] Comment on above: Result Comment: Canc elled via OM: Order cancelled - Patient discharged Performed By: #### L 500.2500, L100.0100 ####[facility] [address] [place], [address] Calcium Normal 7.6-11.0 [facility] Comment on above: Result Comment: Canc elled via OM: Order cancelled - Patient discharged Performed By: #### L 500.2500, L100.0100 ####[facility] [address] [place], [address] CL Normal 98-108 [facility] Comment on above: Result Comment: Canc elled via OM: Order cancelled - Patient discharged Performed By: #### L 500.2500, L100.0100 ####[facility] [address] [place], [address] CO2 Normal 21.0-32.0 [facility] Comment on above: Result Comment: Canc elled via OM: Order cancelled - Patient discharged Performed By: #### L 500.2500, L100.0100 ####[facility] [address] [place], [address] CREAT,SERUM Normal 0.70-1.20 [facility] Comment on above: Result Comment: Canc elled via OM: Order cancelled - Patient discharged Performed By: #### L 500.2500, L100.0100 ####[facility] [address] [place], [address] eGFR Normal >60 [facility] Comment on above: Result Comment: Canc elled via OM: Order cancelled - Patient discharged Performed By: #### L 500.2500, L100.0100 ####[facility] [address] [place], [address] GAP Normal 5-15 [facility] Comment on above: Result Comment: Canc elled via OM: Order cancelled - Patient discharged Performed By: #### L 500.2500, L100.0100 ####[facility] [address] [place], [address] GLU Normal 70-99 [facility] Comment on above: Result Comment: Canc elled via OM: Order cancelled - Patient discharged Performed By: #### L 500.2500, L100.0100 ####[facility] [address] [place], [address] Potassium Normal 3.3-5.1 [facility] Comment on above: Result Comment: Canc elled via OM: Order cancelled - Patient discharged Performed By: #### L 500.2500, L100.0100 ####[facility] [address] [place], [address] Basic Metabolic Profile (BMP) Normal 133-145 [facility] Comment on above: Result Comment: Canc elled via OM: Order cancelled - Patient discharged Performed By: #### L 500.2500, L100.0100 ####[facility] [address] [place], [address] CBC W/Diff, Automatedon 11-1 Absolute Neut Normal 2.0-7.7 [facility] Comment on above: Result Comment: Canc elled via OM: Order cancelled - Patient discharged Performed By: #### L 500.2500, L100.0100 ####[facility] [address] [place], [address] HCT Normal 37-47 [facility] Comment on above: Result Comment: Canc elled via OM: Order cancelled - Patient discharged Performed By: #### L 500.2500, L100.0100 ####[facility] [address] [place], [address] HGB Normal 12.0-15.0 [facility] Comment on above: Result Comment: Canc elled via OM: Order cancelled - Patient discharged Performed By: #### L 500.2500, L100.0100 ####[facility] [address] [place], [address] MCH Normal 27.0-32.0 [facility] Comment on above: Result Comment: Canc elled via OM: Order cancelled - Patient discharged Performed By: #### L 500.2500, L100.0100 ####[facility] [address] [place], [address] MCHC Normal 32-36 [facility] Comment on above: Result Comment: Canc elled via OM: Order cancelled - Patient discharged Performed By: #### L 500.2500, L100.0100 ####[facility] [address] [place], [address] MCV Normal 81-99 [facility] Comment on above: Result Comment: Canc elled via OM: Order cancelled - Patient discharged Performed By: #### L 500.2500, L100.0100 ####[facility] [address] [place], [address] NEUT% Normal 47-70 [facility] Comment on above: Result Comment: Canc elled via OM: Order cancelled - Patient discharged Performed By: #### L 500.2500, L100.0100 ####[facility] [address] [place], [address] PLT Normal 150-450 [facility] Comment on above: Result Comment: Canc elled via OM: Order cancelled - Patient discharged Performed By: #### L 500.2500, L100.0100 ####[facility] [address] [place], [address] RBC Normal 4.2-5.4 [facility] Comment on above: Result Comment: Canc elled via OM: Order cancelled - Patient discharged Performed By: #### L 500.2500, L100.0100 ####[facility] [address] [place], [address] RDW CV Normal 11.6-14.6 [facility] Comment on above: Result Comment: Canc elled via OM: Order cancelled - Patient discharged Performed By: #### L 500.2500, L100.0100 ####[facility] [address] [place], [address] RDW SD Normal 35.1-43.9 [facility] Comment on above: Result Comment: Canc elled via OM: Order cancelled - Patient discharged Performed By: #### L 500.2500, L100.0100 ####[facility] [address] [place], [address] WBC Normal 4.4-11.0 [facility] Comment on above: Result Comment: Canc elled via OM: Order cancelled - Patient discharged Performed By: #### L 500.2500, L100.0100 ####[facility] [address] [place], [address] Basic Metabolic Profile (BMP )on 05-29-2025 BUN Normal 4-19 [facility] Comment on above: Result Comment: Canc elled via OM: Order cancelled - Patient discharged Performed By: #### L 100.0100, L500.2500 ####[facility] [address] [place], [address] BUN/CRE Normal 10-20 [facility] Comment on above: Result Comment: Canc elled via OM: Order cancelled - Patient discharged Performed By: #### L 100.0100, L500.2500 ####[facility] [address] [place], [address] Calcium Normal 7.6-11.0 [facility] Comment on above: Result Comment: Canc elled via OM: Order cancelled - Patient discharged Performed By: #### L 100.0100, L500.2500 ####[facility] [address] [place], [address] CL Normal 98-108 [facility] Comment on above: Result Comment: Canc elled via OM: Order cancelled - Patient discharged Performed By: #### L 100.0100, L500.2500 ####[facility] [address] [place], [address] CO2 Normal 21.0-32.0 [facility] Comment on above: Result Comment: Canc elled via OM: Order cancelled - Patient discharged Performed By: #### L 100.0100, L500.2500 ####[facility] [address] [place], [address] CREAT,SERUM Normal 0.70-1.20 [facility] Comment on above: Result Comment: Canc elled via OM: Order cancelled - Patient discharged Performed By: #### L 100.0100, L500.2500 ####[facility] [address] [place], [address] eGFR Normal >60 [facility] Comment on above: Result Comment: Canc elled via OM: Order cancelled - Patient discharged Performed By: #### L 100.0100, L500.2500 ####[facility] [address] [place], [address] GAP Normal 5-15 [facility] Comment on above: Result Comment: Canc elled via OM: Order cancelled - Patient discharged Performed By: #### L 100.0100, L500.2500 ####[facility] [address] [place], [address] GLU Normal 70-99 [facility] Comment on above: Result Comment: Canc elled via OM: Order cancelled - Patient discharged Performed By: #### L 100.0100, L500.2500 ####[facility] [address] [place], [address] Potassium Normal 3.3-5.1 [facility] Comment on above: Result Comment: Canc elled via OM: Order cancelled - Patient discharged Performed By: #### L 100.0100, L500.2500 ####[facility] [address] [place], [address] Basic Metabolic Profile (BMP) Normal 133-145 [facility] Comment on above: Result Comment: Canc elled via OM: Order cancelled - Patient discharged Performed By: #### L 100.0100, L500.2500 ####[facility] [address] [place], [address] CBC W/Diff, Automatedon 11-1 Absolute Neut Normal 2.0-7.7 [facility] Comment on above: Result Comment: Canc elled via OM: Order cancelled - Patient discharged Performed By: #### L 100.0100, L500.2500 ####[facility] [address] [place], [address] HCT Normal 37-47 [facility] Comment on above: Result Comment: Canc elled via OM: Order cancelled - Patient discharged Performed By: #### L 100.0100, L500.2500 ####[facility] [address] [place], [address] HGB Normal 12.0-15.0 [facility] Comment on above: Result Comment: Canc elled via OM: Order cancelled - Patient discharged Performed By: #### L 100.0100, L500.2500 ####[facility] [address] [place], [address] MCH Normal 27.0-32.0 [facility] Comment on above: Result Comment: Canc elled via OM: Order cancelled - Patient discharged Performed By: #### L 100.0100, L500.2500 ####[facility] [address] [place], [address] MCHC Normal 32-36 [facility] Comment on above: Result Comment: Canc elled via OM: Order cancelled - Patient discharged Performed By: #### L 100.0100, L500.2500 ####[facility] [address] [place], [address] MCV Normal 81-99 [facility] Comment on above: Result Comment: Canc elled via OM: Order cancelled - Patient discharged Performed By: #### L 100.0100, L500.2500 ####[facility] [address] [place], [address] NEUT% Normal 47-70 [facility] Comment on above: Result Comment: Canc elled via OM: Order cancelled - Patient discharged Performed By: #### L 100.0100, L500.2500 ####[facility] [address] [place], [address] PLT Normal 150-450 [facility] Comment on above: Result Comment: Canc elled via OM: Order cancelled - Patient discharged Performed By: #### L 100.0100, L500.2500 ####[facility] [address] [place], [address] RBC Normal 4.2-5.4 [facility] Comment on above: Result Comment: Canc elled via OM: Order cancelled - Patient discharged Performed By: #### L 100.0100, L500.2500 ####[facility] [address] [place], [address] RDW CV Normal 11.6-14.6 [facility] Comment on above: Result Comment: Canc elled via OM: Order cancelled - Patient discharged Performed By: #### L 100.0100, L500.2500 ####[facility] [address] [place], [address] RDW SD Normal 35.1-43.9 [facility] Comment on above: Result Comment: Canc elled via OM: Order cancelled - Patient discharged Performed By: #### L 100.0100, L500.2500 ####[facility] [address] [place], [address] WBC Normal 4.4-11.0 [facility] Comment on above: Result Comment: Canc elled via OM: Order cancelled - Patient discharged Performed By: #### L 100.0100, L500.2500 ####[facility] [address] [place], [address] Culture, Anaerobic Any Sourc mik 05-29-2025 CUAN No growth in 48 hours. Normal [facility] Comment on above: Performed By: #### M 100.4001, M100.2900, M100.2000 ####[facility] [address] [place], [address] Basic Metabolic Profile (BMP )on 05-28-2025 BUN/CRE 24.1 RATIO High 10-20 [facility] Comment on above: Performed By: #### L 100.0100, L500.2500 ####[facility] [address] [place], [address] Calcium [Mass/Vol] 9.4 mg/dL Normal 7.6-11.0 [facility] Comment on above: Performed By: #### L 100.0100, L500.2500 ####[facility] [address] [place], [address] Chloride [Moles/Vol] 105 mmol/L Normal 98-108 [facility] Comment on above: Performed By: #### L 100.0100, L500.2500 ####[facility] [address] [place], [address] CO2 [Moles/Vol] 26.0 mmol/L Normal 21.0-32.0 [facility] Comment on above: Performed By: #### L 100.0100, L500.2500 ####[facility] [address] [place], [address] Creatinine [Mass/Vol] 1.55 mg/dL High 0.70-1.20 [facility] Comment on above: Performed By: #### L 100.0100, L500.2500 ####[facility] [address] [place], [address] ECRCL 42.50 ml/min Low 50-250 [facility] Comment on above: Performed By: #### L 100.0100, L500.2500 ####[facility] [address] [place], [address] GAP 9 Normal 5-15 [facility] Comment on above: Performed By: #### L 100.0100, L500.2500 ####[facility] [address] [place], [address] GFR/1.73 sq M.predicted among non-blacks MDRD (S/P/Bld) [Vol rate/Area] 37 mL/min/{1.73_m2} Low >60 [facility] Comment on above: Result Comment: mL/m in/1.73m2 CKD-EPI Creatinine Equation (2020) Performed By: #### L 100.0100, L500.2500 ####[facility] [address] [place], [address] Glucose [Mass/Vol] 168 mg/dL High 70-99 [facility] Comment on above: Performed By: #### L 100.0100, L500.2500 ####[facility] [address] [place], [address] Potassium [Moles/Vol] 4.1 mmol/L Normal 3.3-5.1 [facility] Comment on above: Performed By: #### L 100.0100, L500.2500 ####[facility] [address] [place], [address] Sodium [Moles/Vol] 140 mmol/L Normal 133-145 [facility] Comment on above: Performed By: #### L 100.0100, L500.2500 ####[facility] [address] [place], [address] Urea nitrogen [Mass/Vol] 37 mg/dL High 4-19 [facility] Comment on above: Performed By: #### L 100.0100, L500.2500 ####[facility] [address] [place], [address] Body Fluid Culton 05-28-2025 BFC UNK UNK No growth-Final to follow Normal [facility] Comment on above: Performed By: #### M 100.4001, M100.2900, M100.2000 ####[facility] [address] [place], [address] CBC W/Diff, Automatedon 05-18 Absolute Lymph 0.72 X10 3/uL Low 0.83-4.51 [facility] Comment on above: Performed By: #### L 100.0100, L500.2500 ####[facility] [address] [place], [address] Absolute Neut 15.8 X10 3/uL High 2.0-7.7 [facility] Comment on above: Performed By: #### L 100.0100, L500.2500 ####[facility] [address] [place], [address] Basophils/100 WBC (Bld) 0.1 % Normal 0-1 [facility] Comment on above: Performed By: #### L 100.0100, L500.2500 ####[facility] [address] [place], [address] Eosinophils/100 WBC (Bld) 0.0 % Normal 0-5 [facility] Comment on above: Performed By: #### L 100.0100, L500.2500 ####[facility] [address] [place], [address] Erythrocyte distribution width (RBC) [Ratio] 14.5 % Normal 11.6-14.6 [facility] Comment on above: Performed By: #### L 100.0100, L500.2500 ####[facility] [address] [place], [address] Hematocrit (Bld) [Volume fraction] 44.1 % Normal 37-47 [facility] Comment on above: Performed By: #### L 100.0100, L500.2500 ####[facility] [address] [place], [address] Hemoglobin (Bld) [Mass/Vol] 14.2 g/dL Normal 12.0-15.0 [facility] Comment on above: Performed By: #### L 100.0100, L500.2500 ####[facility] [address] [place], [address] IG% 0.600 Normal 0.0-0.9 [facility] Comment on above: Result Comment: IG% - Immature Granulocytes (promyelocytes, myelocytes andmetamyelocytes) > 1% indicates that a LEFT SHIFT is Present. Performed By: #### L 100.0100, L500.2500 ####[facility] [address] [place], [address] Lymphocytes/100 WBC (Bld) 4.2 % Low 19-41 [facility] Comment on above: Performed By: #### L 100.0100, L500.2500 ####[facility] [address] [place], [address] MCH (RBC) [Entitic mass] 30.6 pg Normal 27.0-32.0 [facility] Comment on above: Performed By: #### L 100.0100, L500.2500 ####[facility] [address] [place], [address] MCHC (RBC) [Mass/Vol] 32.2 g/dL Normal 32-36 [facility] Comment on above: Performed By: #### L 100.0100, L500.2500 ####[facility] [address] [place], [address] MCV (RBC) [Entitic vol] 95.0 fL Normal 81-99 [facility] Comment on above: Performed By: #### L 100.0100, L500.2500 ####[facility] [address] [place], [address] Monocytes/100 WBC (Bld) 3.3 % Normal 0-10 [facility] Comment on above: Performed By: #### L 100.0100, L500.2500 ####[facility] [address] [place], [address] Neutrophils/100 WBC (Bld) 91.8 % High 47-70 [facility] Comment on above: Performed By: #### L 100.0100, L500.2500 ####[facility] [address] [place], [address] Nucleated RBC (Bld) [#/Vol] 0 10*3/uL Normal 0-5 [facility] Comment on above: Performed By: #### L 100.0100, L500.2500 ####[facility] [address] [place], [address] Platelet mean volume (Bld) [Entitic vol] 10.7 fL Normal 6.2-12.0 [facility] Comment on above: Performed By: #### L 100.0100, L500.2500 ####[facility] [address] [place], [address] Platelets (Bld) [#/Vol] 254 10*3/uL Normal 150-450 [facility] Comment on above: Performed By: #### L 100.0100, L500.2500 ####[facility] [address] [place], [address] RBC (Bld) [#/Vol] 4.64 10*6/uL Normal 4.2-5.4 [facility] Comment on above: Performed By: #### L 100.0100, L500.2500 ####[facility] [address] [place], [address] RDW SD 50.2 fl High 35.1-43.9 [facility] Comment on above: Performed By: #### L 100.0100, L500.2500 ####[facility] [address] [place], [address] WBC (Bld) [#/Vol] 17.2 10*3/uL High 4.4-11.0 [facility] Comment on above: Performed By: #### L 100.0100, L500.2500 ####[facility] [address] [place], [address] Discharge Instructionon 05-18 Discharge Instruction Normal [facility] Basic Metabolic Profile (BMP )on 05-27-2025 BUN/CRE 20.8 RATIO High 10-20 [facility] Comment on above: Performed By: #### L 504.2610, L500.2500 ####[facility] [address] [place], [address] Calcium [Mass/Vol] 10.2 mg/dL Normal 7.6-11.0 [facility] Comment on above: Performed By: #### L 504.2610, L500.2500 ####[facility] [address] [place], [address] Chloride [Moles/Vol] 103 mmol/L Normal 98-108 [facility] Comment on above: Performed By: #### L 504.2610, L500.2500 ####[facility] [address] [place], [address] CO2 [Moles/Vol] 22.8 mmol/L Normal 21.0-32.0 [facility] Comment on above: Performed By: #### L 504.2610, L500.2500 ####[facility] [address] [place], [address] Creatinine [Mass/Vol] 1.47 mg/dL High 0.70-1.20 [facility] Comment on above: Performed By: #### L 504.2610, L500.2500 ####[facility] [address] [place], [address] ECRCL 44.83 ml/min Low 50-250 [facility] Comment on above: Performed By: #### L 504.2610, L500.2500 ####[facility] [address] [place], [address] GAP 13 Normal 5-15 [facility] Comment on above: Performed By: #### L 504.2610, L500.2500 ####[facility] [address] [place], [address] GFR/1.73 sq M.predicted among non-blacks MDRD (S/P/Bld) [Vol rate/Area] 40 mL/min/{1.73_m2} Low >60 [facility] Comment on above: Result Comment: mL/m in/1.73m2 CKD-EPI Creatinine Equation (2020) Performed By: #### L 504.2610, L500.2500 ####[facility] [address] [place], [address] Glucose [Mass/Vol] 140 mg/dL High 70-99 [facility] Comment on above: Performed By: #### L 504.2610, L500.2500 ####[facility] [address] [place], [address] Potassium [Moles/Vol] 4.2 mmol/L Normal 3.3-5.1 [facility] Comment on above: Performed By: #### L 504.2610, L500.2500 ####[facility] [address] [place], [address] Sodium [Moles/Vol] 139 mmol/L Normal 133-145 [facility] Comment on above: Performed By: #### L 504.2610, L500.2500 ####[facility] [address] [place], [address] Urea nitrogen [Mass/Vol] 31 mg/dL High 4-19 [facility] Comment on above: Performed By: #### L 504.2610, L500.2500 ####[facility] [address] [place], [address] CBC W/Diff, Automatedon 11-1 PLT EST ADEQUATE Normal ADEQ [facility] Comment on above: Performed By: #### L 100.0100 ####[facility] [address] [place], [address] RED CELL MORPH NORM C+C Normal NORM C C [facility] Comment on above: Performed By: #### L 100.0100 ####[facility] [address] [place], [address] SMEAR COMMENT SCANNED Normal [facility] Comment on above: Performed By: #### L 100.0100 ####[facility] [address] [place], [address] VACUOLATE CELLS 1+ Normal [facility] Comment on above: Performed By: #### L 100.0100 ####[facility] [address] [place], [address] Chest Insp/Exp 2 Viewon 05-18 Chest Insp/Exp 2 View Normal [facility] Chest WITH Contraston 2024 Chest WITH Contrast Normal [facility] Consultation - Intensiviston 05-27-2025 Consultation - Commercial Designer Normal [facility] Gram Stainon 05-27-2025 GS Centrifuged Specimen ? Culture performed on centrifuged specimen Gram Stain No organisms seen 4+ Red Blood Cells 1+ White Blood Cells Normal [facility] Comment on above: Performed By: #### M 100.4001, M100.2900, M100.2000 ####[facility] [address] [place], [address] LDHon 05-27-2025 LDH 206 U/L Normal 84-246 [facility] Comment on above: Performed By: #### L 504.2610, L500.2500 ####[facility] [address] [place], [address] Pro- Brain NATRIURETIC PEPTI Radha 05-27-2025 Natriuretic peptide B (Bld) [Mass/Vol] 396 pg/mL Normal <=900 [facility] Comment on above: Result Comment: Hear t Failure Unlikely: < 300 pg/mLHeart Failure Likely< 50 Years: > 450 pg/mL50-75 Years: > 900 pg/mL>75 Years: > 1800 pg/mL Performed By: #### L 503.7505 ####[facility] [address] [place], [address] Protein, Totalon 05-27-2025 T PROT 6.7 g/dL Normal 5.9-8.4 [facility] Comment on above: Order Comment: OK TO ADD TO MORNING LABS PER IRIS SALCIDO Performed By: #### L 001.0705 ####[facility] [address] [place], [address] Thoracentesis W USon 025 Thoracentesis W US Normal [facility] Basic Metabolic Profile (BMP )on 05-26-2025 BUN/CRE 15.8 RATIO Normal 10-20 [facility] Comment on above: Performed By: #### L 500.2500, L100.0100 ####[facility] [address] [place], [address] Calcium [Mass/Vol] 9.9 mg/dL Normal 7.6-11.0 [facility] Comment on above: Performed By: #### L 500.2500, L100.0100 ####[facility] [address] [place], [address] Chloride [Moles/Vol] 103 mmol/L Normal 98-108 [facility] Comment on above: Performed By: #### L 500.2500, L100.0100 ####[facility] [address] [place], [address] CO2 [Moles/Vol] 23.4 mmol/L Normal 21.0-32.0 [facility] Comment on above: Performed By: #### L 500.2500, L100.0100 ####[facility] [address] [place], [address] Creatinine [Mass/Vol] 1.53 mg/dL High 0.70-1.20 [facility] Comment on above: Performed By: #### L 500.2500, L100.0100 ####[facility] [address] [place], [address] ECRCL 42.98 ml/min Low 50-250 [facility] Comment on above: Performed By: #### L 500.2500, L100.0100 ####[facility] [address] [place], [address] GAP 11 Normal 5-15 [facility] Comment on above: Performed By: #### L 500.2500, L100.0100 ####[facility] [address] [place], [address] GFR/1.73 sq M.predicted among non-blacks MDRD (S/P/Bld) [Vol rate/Area] 38 mL/min/{1.73_m2} Low >60 [facility] Comment on above: Result Comment: mL/m in/1.73m2 CKD-EPI Creatinine Equation (2020) Performed By: #### L 500.2500, L100.0100 ####[facility] [address] [place], [address] Glucose [Mass/Vol] 209 mg/dL High 70-99 [facility] Comment on above: Performed By: #### L 500.2500, L100.0100 ####[facility] [address] [place], [address] Potassium [Moles/Vol] 3.8 mmol/L Normal 3.3-5.1 [facility] Comment on above: Performed By: #### L 500.2500, L100.0100 ####[facility] [address] [place], [address] Sodium [Moles/Vol] 137 mmol/L Normal 133-145 [facility] Comment on above: Performed By: #### L 500.2500, L100.0100 ####[facility] [address] [place], [address] Urea nitrogen [Mass/Vol] 24 mg/dL High 4-19 [facility] Comment on above: Performed By: #### L 500.2500, L100.0100 ####[facility] [address] [place], [address] CBC W/Diff, Automatedon 11-0 Absolute Neut Normal 2.0-7.7 [facility] Comment on above: Result Comment: DUPL ICATE ORDER, ANOTHER ONE ORDERED FOR 0555. Performed By: #### L 100.0100 ####[facility] [address] [place], [address] HCT Normal 37-47 [facility] Comment on above: Result Comment: DUPL ICATE ORDER, ANOTHER ONE ORDERED FOR 0555. Performed By: #### L 100.0100 ####[facility] [address] [place], [address] HGB Normal 12.0-15.0 [facility] Comment on above: Result Comment: DUPL ICATE ORDER, ANOTHER ONE ORDERED FOR 0555. Performed By: #### L 100.0100 ####[facility] [address] [place], [address] MCH Normal 27.0-32.0 [facility] Comment on above: Result Comment: DUPL ICATE ORDER, ANOTHER ONE ORDERED FOR 0555. Performed By: #### L 100.0100 ####[facility] [address] [place], [address] MCHC Normal 32-36 [facility] Comment on above: Result Comment: DUPL ICATE ORDER, ANOTHER ONE ORDERED FOR 0555. Performed By: #### L 100.0100 ####[facility] [address] [place], [address] MCV Normal 81-99 [facility] Comment on above: Result Comment: DUPL ICATE ORDER, ANOTHER ONE ORDERED FOR 0555. Performed By: #### L 100.0100 ####[facility] [address] [place], [address] NEUT% Normal 47-70 [facility] Comment on above: Result Comment: DUPL ICATE ORDER, ANOTHER ONE ORDERED FOR 0555. Performed By: #### L 100.0100 ####[facility] [address] [place], [address] PLT Normal 150-450 [facility] Comment on above: Result Comment: DUPL ICATE ORDER, ANOTHER ONE ORDERED FOR 0555. Performed By: #### L 100.0100 ####[facility] [address] [place], [address] RBC Normal 4.2-5.4 [facility] Comment on above: Result Comment: DUPL ICATE ORDER, ANOTHER ONE ORDERED FOR 0555. Performed By: #### L 100.0100 ####[facility] [address] [place], [address] RDW CV Normal 11.6-14.6 [facility] Comment on above: Result Comment: DUPL ICATE ORDER, ANOTHER ONE ORDERED FOR 0555. Performed By: #### L 100.0100 ####[facility] [address] [place], [address] RDW SD Normal 35.1-43.9 [facility] Comment on above: Result Comment: DUPL ICATE ORDER, ANOTHER ONE ORDERED FOR 0555. Performed By: #### L 100.0100 ####[facility] [address] [place], [address] WBC Normal 4.4-11.0 [facility] Comment on above: Result Comment: DUPL ICATE ORDER, ANOTHER ONE ORDERED FOR 0555. Performed By: #### L 100.0100 ####[facility] [address] [place], [address] Absolute Lymph 0.56 X10 3/uL Low 0.83-4.51 [facility] Comment on above: Performed By: #### L 500.2500, L100.0100 ####[facility] [address] [place], [address] Absolute Neut 12.4 X10 3/uL High 2.0-7.7 [facility] Comment on above: Performed By: #### L 500.2500, L100.0100 ####[facility] [address] [place], [address] Basophils/100 WBC (Bld) 0.1 % Normal 0-1 [facility] Comment on above: Performed By: #### L 500.2500, L100.0100 ####[facility] [address] [place], [address] Eosinophils/100 WBC (Bld) 0.0 % Normal 0-5 [facility] Comment on above: Performed By: #### L 500.2500, L100.0100 ####[facility] [address] [place], [address] Erythrocyte distribution width (RBC) [Ratio] 14.0 % Normal 11.6-14.6 [facility] Comment on above: Performed By: #### L 500.2500, L100.0100 ####[facility] [address] [place], [address] Hematocrit (Bld) [Volume fraction] 44.0 % Normal 37-47 [facility] Comment on above: Performed By: #### L 500.2500, L100.0100 ####[facility] [address] [place], [address] Hemoglobin (Bld) [Mass/Vol] 14.6 g/dL Normal 12.0-15.0 [facility] Comment on above: Performed By: #### L 500.2500, L100.0100 ####[facility] [address] [place], [address] IG% 0.500 Normal 0.0-0.9 [facility] Comment on above: Result Comment: IG% - Immature Granulocytes (promyelocytes, myelocytes andmetamyelocytes) > 1% indicates that a LEFT SHIFT is Present. Performed By: #### L 500.2500, L100.0100 ####[facility] [address] [place], [address] Lymphocytes/100 WBC (Bld) 4.2 % Low 19-41 [facility] Comment on above: Performed By: #### L 500.2500, L100.0100 ####[facility] [address] [place], [address] MCH (RBC) [Entitic mass] 31.3 pg Normal 27.0-32.0 [facility] Comment on above: Performed By: #### L 500.2500, L100.0100 ####[facility] [address] [place], [address] MCHC (RBC) [Mass/Vol] 33.2 g/dL Normal 32-36 [facility] Comment on above: Performed By: #### L 500.2500, L100.0100 ####[facility] [address] [place], [address] MCV (RBC) [Entitic vol] 94.2 fL Normal 81-99 [facility] Comment on above: Performed By: #### L 500.2500, L100.0100 ####[facility] [address] [place], [address] Monocytes/100 WBC (Bld) 2.1 % Normal 0-10 [facility] Comment on above: Performed By: #### L 500.2500, L100.0100 ####[facility] [address] [place], [address] Neutrophils/100 WBC (Bld) 93.1 % High 47-70 [facility] Comment on above: Performed By: #### L 500.2500, L100.0100 ####[facility] [address] [place], [address] Nucleated RBC (Bld) [#/Vol] 0 10*3/uL Normal 0-5 [facility] Comment on above: Performed By: #### L 500.2500, L100.0100 ####[facility] [address] [place], [address] Platelet mean volume (Bld) [Entitic vol] 10.9 fL Normal 6.2-12.0 [facility] Comment on above: Performed By: #### L 500.2500, L100.0100 ####[facility] [address] [place], [address] Platelets (Bld) [#/Vol] 230 10*3/uL Normal 150-450 [facility] Comment on above: Performed By: #### L 500.2500, L100.0100 ####[facility] [address] [place], [address] RBC (Bld) [#/Vol] 4.67 10*6/uL Normal 4.2-5.4 [facility] Comment on above: Performed By: #### L 500.2500, L100.0100 ####[facility] [address] [place], [address] RDW SD 48.8 fl High 35.1-43.9 [facility] Comment on above: Performed By: #### L 500.2500, L100.0100 ####[facility] [address] [place], [address] WBC (Bld) [#/Vol] 13.4 10*3/uL High 4.4-11.0 [facility] Comment on above: Performed By: #### L 500.2500, L100.0100 ####[facility] [address] [place], [address] Partial Thromboplast Timeon 05-26-2025 aPTT Coag (Bld) [Time] 76.4 s High 24.1-36.2 [facility] Comment on above: Performed By: #### L 300.4310 ####[facility] [address] [place], [address] aPTT Coag (Bld) [Time] 177.5 s Invalid Interpretation Code 24.1-36.2 [facility] Comment on above: Result Comment: CRIT ICAL VALUE CALLED TO ROSA MARIA SIMPSON05/26/25 1408 Stuart Vela.RESULTS READ BACK BY SAME. Performed By: #### L 300.4310 ####[facility] [address] [place], [address] aPTT Coag (Bld) [Time] 219.1 s Invalid Interpretation Code 24.1-36.2 [facility] Comment on above: Result Comment: CRIT ICAL VALUE CALLED TO XHYXMOPR70/09/25 0501 Herbie Haywood.RESULTS READ BACK BY SAME. Performed By: #### L 300.4310 ####[facility] [address] [place], [address] CBC W/Diff, Automatedon 11 Absolute Lymph 0.38 X10 3/uL Low 0.83-4.51 [facility] Comment on above: Order Comment: Comme nts: If not done in prior 24 hours Performed By: #### L 300.4310, L300.3900, L100.0100 ####[facility] [address] [place], [address] Absolute Neut 6.4 X10 3/uL Normal 2.0-7.7 [facility] Comment on above: Order Comment: Comme nts: If not done in prior 24 hours Performed By: #### L 300.4310, L300.3900, L100.0100 ####[facility] [address] [place], [address] Basophils/100 WBC (Bld) 0.1 % Normal 0-1 [facility] Comment on above: Order Comment: Comme nts: If not done in prior 24 hours Performed By: #### L 300.4310, L300.3900, L100.0100 ####[facility] [address] [place], [address] Eosinophils/100 WBC (Bld) 0.0 % Normal 0-5 [facility] Comment on above: Order Comment: Comme nts: If not done in prior 24 hours Performed By: #### L 300.4310, L300.3900, L100.0100 ####[facility] [address] [place], [address] Erythrocyte distribution width (RBC) [Ratio] 14.1 % Normal 11.6-14.6 [facility] Comment on above: Order Comment: Comme nts: If not done in prior 24 hours Performed By: #### L 300.4310, L300.3900, L100.0100 ####[facility] [address] [place], [address] Hematocrit (Bld) [Volume fraction] 46.1 % Normal 37-47 [facility] Comment on above: Order Comment: Comme nts: If not done in prior 24 hours Performed By: #### L 300.4310, L300.3900, L100.0100 ####[facility] [address] [place], [address] Hemoglobin (Bld) [Mass/Vol] 15.0 g/dL Normal 12.0-15.0 [facility] Comment on above: Order Comment: Comme nts: If not done in prior 24 hours Performed By: #### L 300.4310, L300.3900, L100.0100 ####[facility] [address] [place], [address] IG% 0.100 Normal 0.0-0.9 [facility] Comment on above: Order Comment: Comme nts: If not done in prior 24 hours Result Comment: IG% - Immature Granulocytes (promyelocytes, myelocytes andmetamyelocytes) > 1% indicates that a LEFT SHIFT is Present. Performed By: #### L 300.4310, L300.3900, L100.0100 ####[facility] [address] [place], [address] Lymphocytes/100 WBC (Bld) 5.5 % Low 19-41 [facility] Comment on above: Order Comment: Comme nts: If not done in prior 24 hours Performed By: #### L 300.4310, L300.3900, L100.0100 ####[facility] [address] [place], [address] MCH (RBC) [Entitic mass] 30.8 pg Normal 27.0-32.0 [facility] Comment on above: Order Comment: Comme nts: If not done in prior 24 hours Performed By: #### L 300.4310, L300.3900, L100.0100 ####[facility] [address] [place], [address] MCHC (RBC) [Mass/Vol] 32.5 g/dL Normal 32-36 [facility] Comment on above: Order Comment: Comme nts: If not done in prior 24 hours Performed By: #### L 300.4310, L300.3900, L100.0100 ####[facility] [address] [place], [address] MCV (RBC) [Entitic vol] 94.7 fL Normal 81-99 [facility] Comment on above: Order Comment: Comme nts: If not done in prior 24 hours Performed By: #### L 300.4310, L300.3900, L100.0100 ####[facility] [address] [place], [address] Monocytes/100 WBC (Bld) 1.7 % Normal 0-10 [facility] Comment on above: Order Comment: Comme nts: If not done in prior 24 hours Performed By: #### L 300.4310, L300.3900, L100.0100 ####[facility] [address] [place], [address] Neutrophils/100 WBC (Bld) 92.6 % High 47-70 [facility] Comment on above: Order Comment: Comme nts: If not done in prior 24 hours Performed By: #### L 300.4310, L300.3900, L100.0100 ####[facility] [address] [place], [address] Nucleated RBC (Bld) [#/Vol] 0 10*3/uL Normal 0-5 [facility] Comment on above: Order Comment: Comme nts: If not done in prior 24 hours Performed By: #### L 300.4310, L300.3900, L100.0100 ####[facility] [address] [place], [address] Platelet mean volume (Bld) [Entitic vol] 10.9 fL Normal 6.2-12.0 [facility] Comment on above: Order Comment: Comme nts: If not done in prior 24 hours Performed By: #### L 300.4310, L300.3900, L100.0100 ####[facility] [address] [place], [address] Platelets (Bld) [#/Vol] 235 10*3/uL Normal 150-450 [facility] Comment on above: Order Comment: Comme nts: If not done in prior 24 hours Performed By: #### L 300.4310, L300.3900, L100.0100 ####[facility] [address] [place], [address] RBC (Bld) [#/Vol] 4.87 10*6/uL Normal 4.2-5.4 [facility] Comment on above: Order Comment: Comme nts: If not done in prior 24 hours Performed By: #### L 300.4310, L300.3900, L100.0100 ####[facility] [address] [place], [address] RDW SD 48.8 fl High 35.1-43.9 [facility] Comment on above: Order Comment: Comme nts: If not done in prior 24 hours Performed By: #### L 300.4310, L300.3900, L100.0100 ####[facility] [address] [place], [address] WBC (Bld) [#/Vol] 6.9 10*3/uL Normal 4.4-11.0 [facility] Comment on above: Order Comment: Comme nts: If not done in prior 24 hours Performed By: #### L 300.4310, L300.3900, L100.0100 ####[facility] [address] [place], [address] Absolute Lymph 0.86 X10 3/uL Normal 0.83-4.51 [facility] Comment on above: Performed By: #### L 501.5200, L500.4050, L501.2300, L100.0100, L501.9520, L300.3900 ####[facility] [address] [place], [address] Absolute Neut 5.6 X10 3/uL Normal 2.0-7.7 [facility] Comment on above: Performed By: #### L 501.5200, L500.4050, L501.2300, L100.0100, L501.9520, L300.3900 ####[facility] [address] [place], [address] Basophils/100 WBC (Bld) 0.3 % Normal 0-1 [facility] Comment on above: Performed By: #### L 501.5200, L500.4050, L501.2300, L100.0100, L501.9520, L300.3900 ####[facility] [address] [place], [address] Eosinophils/100 WBC (Bld) 1.9 % Normal 0-5 [facility] Comment on above: Performed By: #### L 501.5200, L500.4050, L501.2300, L100.0100, L501.9520, L300.3900 ####[facility] [address] [place], [address] Erythrocyte distribution width (RBC) [Ratio] 14.3 % Normal 11.6-14.6 [facility] Comment on above: Performed By: #### L 501.5200, L500.4050, L501.2300, L100.0100, L501.9520, L300.3900 ####[facility] [address] [place], [address] Hematocrit (Bld) [Volume fraction] 46.7 % Normal 37-47 [facility] Comment on above: Performed By: #### L 501.5200, L500.4050, L501.2300, L100.0100, L501.9520, L300.3900 ####[facility] [address] [place], [address] Hemoglobin (Bld) [Mass/Vol] 15.1 g/dL High 12.0-15.0 [facility] Comment on above: Performed By: #### L 501.5200, L500.4050, L501.2300, L100.0100, L501.9520, L300.3900 ####[facility] [address] [place], [address] IG% 0.100 Normal 0.0-0.9 [facility] Comment on above: Result Comment: IG% - Immature Granulocytes (promyelocytes, myelocytes andmetamyelocytes) > 1% indicates that a LEFT SHIFT is Present. Performed By: #### L 501.5200, L500.4050, L501.2300, L100.0100, L501.9520, L300.3900 ####[facility] [address] [place], [address] Lymphocytes/100 WBC (Bld) 12.4 % Low 19-41 [facility] Comment on above: Performed By: #### L 501.5200, L500.4050, L501.2300, L100.0100, L501.9520, L300.3900 ####[facility] [address] [place], [address] MCH (RBC) [Entitic mass] 30.6 pg Normal 27.0-32.0 [facility] Comment on above: Performed By: #### L 501.5200, L500.4050, L501.2300, L100.0100, L501.9520, L300.3900 ####[facility] [address] [place], [address] MCHC (RBC) [Mass/Vol] 32.3 g/dL Normal 32-36 [facility] Comment on above: Performed By: #### L 501.5200, L500.4050, L501.2300, L100.0100, L501.9520, L300.3900 ####[facility] [address] [place], [address] MCV (RBC) [Entitic vol] 94.7 fL Normal 81-99 [facility] Comment on above: Performed By: #### L 501.5200, L500.4050, L501.2300, L100.0100, L501.9520, L300.3900 ####[facility] [address] [place], [address] Monocytes/100 WBC (Bld) 4.1 % Normal 0-10 [facility] Comment on above: Performed By: #### L 501.5200, L500.4050, L501.2300, L100.0100, L501.9520, L300.3900 ####[facility] [address] [place], [address] Neutrophils/100 WBC (Bld) 81.2 % High 47-70 [facility] Comment on above: Performed By: #### L 501.5200, L500.4050, L501.2300, L100.0100, L501.9520, L300.3900 ####[facility] [address] [place], [address] Nucleated RBC (Bld) [#/Vol] 0 10*3/uL Normal 0-5 [facility] Comment on above: Performed By: #### L 501.5200, L500.4050, L501.2300, L100.0100, L501.9520, L300.3900 ####[facility] [address] [place], [address] Platelet mean volume (Bld) [Entitic vol] 10.8 fL Normal 6.2-12.0 [facility] Comment on above: Performed By: #### L 501.5200, L500.4050, L501.2300, L100.0100, L501.9520, L300.3900 ####[facility] [address] [place], [address] Platelets (Bld) [#/Vol] 227 10*3/uL Normal 150-450 [facility] Comment on above: Performed By: #### L 501.5200, L500.4050, L501.2300, L100.0100, L501.9520, L300.3900 ####[facility] [address] [place], [address] RBC (Bld) [#/Vol] 4.93 10*6/uL Normal 4.2-5.4 [facility] Comment on above: Performed By: #### L 501.5200, L500.4050, L501.2300, L100.0100, L501.9520, L300.3900 ####[facility] [address] [place], [address] RDW SD 50.3 fl High 35.1-43.9 [facility] Comment on above: Performed By: #### L 501.5200, L500.4050, L501.2300, L100.0100, L501.9520, L300.3900 ####[facility] [address] [place], [address] WBC (Bld) [#/Vol] 6.9 10*3/uL Normal 4.4-11.0 [facility] Comment on above: Performed By: #### L 501.5200, L500.4050, L501.2300, L100.0100, L501.9520, L300.3900 ####[facility] [address] [place], [address] Comprehensive Metabolic Prof ilon 05-25-2025 Albumin [Mass/Vol] 3.6 g/dL Normal 3.4-4.8 [facility] Comment on above: Performed By: #### L 501.5200, L500.4050, L501.2300, L100.0100, L501.9520, L300.3900 ####[facility] [address] [place], [address] Albumin/Globulin [Mass ratio] 1.5 {ratio} Normal 0.9-2.4 [facility] Comment on above: Performed By: #### L 501.5200, L500.4050, L501.2300, L100.0100, L501.9520, L300.3900 ####[facility] [address] [place], [address] ALK PHOS 83 U/L Normal 35-104 [facility] Comment on above: Performed By: #### L 501.5200, L500.4050, L501.2300, L100.0100, L501.9520, L300.3900 ####[facility] [address] [place], [address] ALT [Catalytic activity/Vol] 13 U/L Normal <=34 [facility] Comment on above: Performed By: #### L 501.5200, L500.4050, L501.2300, L100.0100, L501.9520, L300.3900 ####[facility] [address] [place], [address] AST [Catalytic activity/Vol] 21 U/L Normal <=31 [facility] Comment on above: Performed By: #### L 501.5200, L500.4050, L501.2300, L100.0100, L501.9520, L300.3900 ####[facility] [address] [place], [address] Bilirubin [Mass/Vol] 0.48 mg/dL Normal 0.00-1.30 [facility] Comment on above: Performed By: #### L 501.5200, L500.4050, L501.2300, L100.0100, L501.9520, L300.3900 ####[facility] [address] [place], [address] BUN/CRE 10.1 RATIO Normal 10-20 [facility] Comment on above: Performed By: #### L 501.5200, L500.4050, L501.2300, L100.0100, L501.9520, L300.3900 ####[facility] [address] [place], [address] Calcium [Mass/Vol] 9.0 mg/dL Normal 7.6-11.0 [facility] Comment on above: Performed By: #### L 501.5200, L500.4050, L501.2300, L100.0100, L501.9520, L300.3900 ####[facility] [address] [place], [address] Chloride [Moles/Vol] 105 mmol/L Normal 98-108 [facility] Comment on above: Performed By: #### L 501.5200, L500.4050, L501.2300, L100.0100, L501.9520, L300.3900 ####[facility] [address] [place], [address] CO2 [Moles/Vol] 25.7 mmol/L Normal 21.0-32.0 [facility] Comment on above: Performed By: #### L 501.5200, L500.4050, L501.2300, L100.0100, L501.9520, L300.3900 ####[facility] [address] [place], [address] Creatinine [Mass/Vol] 1.41 mg/dL High 0.70-1.20 [facility] Comment on above: Performed By: #### L 501.5200, L500.4050, L501.2300, L100.0100, L501.9520, L300.3900 ####[facility] [address] [place], [address] ECRCL 46.64 ml/min Low 50-250 [facility] Comment on above: Performed By: #### L 501.5200, L500.4050, L501.2300, L100.0100, L501.9520, L300.3900 ####[facility] [address] [place], [address] GAP 10 Normal 5-15 [facility] Comment on above: Performed By: #### L 501.5200, L500.4050, L501.2300, L100.0100, L501.9520, L300.3900 ####[facility] [address] [place], [address] GFR/1.73 sq M.predicted among non-blacks MDRD (S/P/Bld) [Vol rate/Area] 42 mL/min/{1.73_m2} Low >60 [facility] Comment on above: Result Comment: mL/m in/1.73m2 CKD-EPI Creatinine Equation (2020) Performed By: #### L 501.5200, L500.4050, L501.2300, L100.0100, L501.9520, L300.3900 ####[facility] [address] [place], [address] Globulin (S) [Mass/Vol] 2.4 g/dL Normal 2.2-4.2 [facility] Comment on above: Performed By: #### L 501.5200, L500.4050, L501.2300, L100.0100, L501.9520, L300.3900 ####[facility] [address] [place], [address] Glucose [Mass/Vol] 125 mg/dL High 70-99 [facility] Comment on above: Performed By: #### L 501.5200, L500.4050, L501.2300, L100.0100, L501.9520, L300.3900 ####[facility] [address] [place], [address] Potassium [Moles/Vol] 3.9 mmol/L Normal 3.3-5.1 [facility] Comment on above: Performed By: #### L 501.5200, L500.4050, L501.2300, L100.0100, L501.9520, L300.3900 ####[facility] [address] [place], [address] Sodium [Moles/Vol] 141 mmol/L Normal 133-145 [facility] Comment on above: Performed By: #### L 501.5200, L500.4050, L501.2300, L100.0100, L501.9520, L300.3900 ####[facility] [address] [place], [address] T PROT 6.0 g/dL Normal 5.9-8.4 [facility] Comment on above: Performed By: #### L 501.5200, L500.4050, L501.2300, L100.0100, L501.9520, L300.3900 ####[facility] [address] [place], [address] Urea nitrogen [Mass/Vol] 14 mg/dL Normal 4-19 [facility] Comment on above: Performed By: #### L 501.5200, L500.4050, L501.2300, L100.0100, L501.9520, L300.3900 ####[facility] [address] [place], [address] Magnesiumon 05-25-2025 Magnesium [Mass/Vol] 2.0 mg/dL Normal 1.5-2.2 [facility] Comment on above: Performed By: #### L 501.5200, L500.4050, L501.2300, L100.0100, L501.9520, L300.3900 ####[facility] [address] [place], [address] Partial Thromboplast Timeon 05-25-2025 aPTT Coag (Bld) [Time] 28.2 s Normal 24.1-36.2 [facility] Comment on above: Order Comment: Comme nts: If not done in prior 24 hours Performed By: #### L 300.4310, L300.3900, L100.0100 ####[facility] [address] [place], [address] Phosphoruson 05-25-2025 Phosphate [Mass/Vol] 2.2 mg/dL Low 2.7-4.5 [facility] Comment on above: Performed By: #### L 501.5200, L500.4050, L501.2300, L100.0100, L501.9520, L300.3900 ####[facility] [address] [place], [address] Prothrombin Time w/INRon INR Coag (PPP) [Relative time] 1.2 {INR} Normal [facility] Comment on above: Order Comment: Comme nts: If not done in prior 24 hours Performed By: #### L 300.4310, L300.3900, L100.0100 ####[facility] [address] [place], [address] PT Coag (PPP) [Time] 14.9 s Normal 11.7-14.9 [facility] Comment on above: Order Comment: Comme nts: If not done in prior 24 hours Performed By: #### L 300.4310, L300.3900, L100.0100 ####[facility] [address] [place], [address] INR Coag (PPP) [Relative time] 1.0 {INR} Normal [facility] Comment on above: Performed By: #### L 501.5200, L500.4050, L501.2300, L100.0100, L501.9520, L300.3900 ####[facility] [address] [place], [address] PT Coag (PPP) [Time] 13.5 s Normal 11.7-14.9 [facility] Comment on above: Performed By: #### L 501.5200, L500.4050, L501.2300, L100.0100, L501.9520, L300.3900 ####[facility] [address] [place], [address] RESPIRATORY PANEL MOLECULARo n 05-25-2025 RP PANEL Normal [facility] Comment on above: Performed By: #### M 100.638 ####[facility] [address] [place], [address] Thyroid Stim Hormone (TSH)on 05-25-2025 TSH 1.300 uIU/mL Normal 0.300-4.200 [facility] Comment on above: Performed By: #### L 501.5200, L500.4050, L501.2300, L100.0100, L501.9520, L300.3900 ####[facility] [address] [place], [address] 12 Lead EKGon 05-24-2025 12 Lead EKG Normal [facility] Basic Metabolic Profile (BMP )on 05-24-2025 BUN/CRE 10.5 RATIO Normal 10-20 [facility] Comment on above: Performed By: #### L 300.3900, L300.4310, L503.7505, L300.8000, L500.2500, L503.6005, L100.0100 ####[facility] [address] [place], [address] Calcium [Mass/Vol] 9.1 mg/dL Normal 7.6-11.0 [facility] Comment on above: Performed By: #### L 300.3900, L300.4310, L503.7505, L300.8000, L500.2500, L503.6005, L100.0100 ####[facility] [address] [place], [address] Chloride [Moles/Vol] 104 mmol/L Normal 98-108 [facility] Comment on above: Performed By: #### L 300.3900, L300.4310, L503.7505, L300.8000, L500.2500, L503.6005, L100.0100 ####[facility] [address] [place], [place], [phone] CO2 [Moles/Vol] 25.4 mmol/L Normal 21.0-32.0 [facility] Comment on above: Performed By: #### L 300.3900, L300.4310, L503.7505, L300.8000, L500.2500, L503.6005, L100.0100 ####[facility] [address] [place], [place], [phone] Creatinine [Mass/Vol] 1.53 mg/dL High 0.70-1.20 [facility] Comment on above: Performed By: #### L 300.3900, L300.4310, L503.7505, L300.8000, L500.2500, L503.6005, L100.0100 ####[facility] [address] [place], [place], [phone] ECRCL 43.53 ml/min Low 50-250 [facility] Comment on above: Performed By: #### L 300.3900, L300.4310, L503.7505, L300.8000, L500.2500, L503.6005, L100.0100 ####[facility] [address] [place], [address] GAP 12 Normal 5-15 [facility] Comment on above: Performed By: #### L 300.3900, L300.4310, L503.7505, L300.8000, L500.2500, L503.6005, L100.0100 ####[facility] [address] [place], [place], [phone] GFR/1.73 sq M.predicted among non-blacks MDRD (S/P/Bld) [Vol rate/Area] 38 mL/min/{1.73_m2} Low >60 [facility] Comment on above: Result Comment: mL/m in/1.73m2 CKD-EPI Creatinine Equation (2020) Performed By: #### L 300.3900, L300.4310, L503.7505, L300.8000, L500.2500, L503.6005, L100.0100 ####[facility] [address] [place], [address] Glucose [Mass/Vol] 104 mg/dL High 70-99 [facility] Comment on above: Performed By: #### L 300.3900, L300.4310, L503.7505, L300.8000, L500.2500, L503.6005, L100.0100 ####[facility] [address] [place], [address] Potassium [Moles/Vol] 3.1 mmol/L Low 3.3-5.1 [facility] Comment on above: Performed By: #### L 300.3900, L300.4310, L503.7505, L300.8000, L500.2500, L503.6005, L100.0100 ####[facility] [address] [place], [address] Sodium [Moles/Vol] 141 mmol/L Normal 133-145 [facility] Comment on above: Performed By: #### L 300.3900, L300.4310, L503.7505, L300.8000, L500.2500, L503.6005, L100.0100 ####[facility] [address] [place], [address] Urea nitrogen [Mass/Vol] 16 mg/dL Normal 4-19 [facility] Comment on above: Performed By: #### L 300.3900, L300.4310, L503.7505, L300.8000, L500.2500, L503.6005, L100.0100 ####[facility] [address] [place], [address] CBC W/Diff, Automatedon 11-0 7-2025 Absolute Lymph 1.94 X10 3/uL Normal 0.83-4.51 [facility] Comment on above: Performed By: #### L 300.3900, L300.4310, L503.7505, L300.8000, L500.2500, L503.6005, L100.0100 ####[facility] [address] [place], [address] Absolute Neut 4.6 X10 3/uL Normal 2.0-7.7 [facility] Comment on above: Performed By: #### L 300.3900, L300.4310, L503.7505, L300.8000, L500.2500, L503.6005, L100.0100 ####[facility] [address] [place], [address] Basophils/100 WBC (Bld) 0.5 % Normal 0-1 [facility] Comment on above: Performed By: #### L 300.3900, L300.4310, L503.7505, L300.8000, L500.2500, L503.6005, L100.0100 ####[facility] [address] [place], [address] Eosinophils/100 WBC (Bld) 2.7 % Normal 0-5 [facility] Comment on above: Performed By: #### L 300.3900, L300.4310, L503.7505, L300.8000, L500.2500, L503.6005, L100.0100 ####[facility] [address] [place], [address] Erythrocyte distribution width (RBC) [Ratio] 14.0 % Normal 11.6-14.6 [facility] Comment on above: Performed By: #### L 300.3900, L300.4310, L503.7505, L300.8000, L500.2500, L503.6005, L100.0100 ####[facility] [address] [place], [address] Hematocrit (Bld) [Volume fraction] 46.2 % Normal 37-47 [facility] Comment on above: Performed By: #### L 300.3900, L300.4310, L503.7505, L300.8000, L500.2500, L503.6005, L100.0100 ####[facility] [address] [place], [address] Hemoglobin (Bld) [Mass/Vol] 15.6 g/dL High 12.0-15.0 [facility] Comment on above: Performed By: #### L 300.3900, L300.4310, L503.7505, L300.8000, L500.2500, L503.6005, L100.0100 ####[facility] [address] [place], [address] IG% 0.100 Normal 0.0-0.9 [facility] Comment on above: Result Comment: IG% - Immature Granulocytes (promyelocytes, myelocytes andmetamyelocytes) > 1% indicates that a LEFT SHIFT is Present. Performed By: #### L 300.3900, L300.4310, L503.7505, L300.8000, L500.2500, L503.6005, L100.0100 ####[facility] [address] [place], [address] Lymphocytes/100 WBC (Bld) 25.8 % Normal 19-41 [facility] Comment on above: Performed By: #### L 300.3900, L300.4310, L503.7505, L300.8000, L500.2500, L503.6005, L100.0100 ####[facility] [address] [place], [address] MCH (RBC) [Entitic mass] 31.3 pg Normal 27.0-32.0 [facility] Comment on above: Performed By: #### L 300.3900, L300.4310, L503.7505, L300.8000, L500.2500, L503.6005, L100.0100 ####[facility] [address] [place], [address] MCHC (RBC) [Mass/Vol] 33.8 g/dL Normal 32-36 [facility] Comment on above: Performed By: #### L 300.3900, L300.4310, L503.7505, L300.8000, L500.2500, L503.6005, L100.0100 ####[facility] [address] [place], [address] MCV (RBC) [Entitic vol] 92.8 fL Normal 81-99 [facility] Comment on above: Performed By: #### L 300.3900, L300.4310, L503.7505, L300.8000, L500.2500, L503.6005, L100.0100 ####[facility] [id number] [place], [address] Monocytes/100 WBC (Bld) 9.1 % Normal 0-10 [facility] Comment on above: Performed By: #### L 300.3900, L300.4310, L503.7505, L300.8000, L500.2500, L503.6005, L100.0100 ####[facility] [address] [place], [address] Neutrophils/100 WBC (Bld) 61.8 % Normal 47-70 [facility] Comment on above: Performed By: #### L 300.3900, L300.4310, L503.7505, L300.8000, L500.2500, L503.6005, L100.0100 ####[facility] [address] [place], [address] Nucleated RBC (Bld) [#/Vol] 0 10*3/uL Normal 0-5 [facility] Comment on above: Performed By: #### L 300.3900, L300.4310, L503.7505, L300.8000, L500.2500, L503.6005, L100.0100 ####[facility] [address] [place], [address] Platelet mean volume (Bld) [Entitic vol] 11.3 fL Normal 6.2-12.0 [facility] Comment on above: Performed By: #### L 300.3900, L300.4310, L503.7505, L300.8000, L500.2500, L503.6005, L100.0100 ####[facility] [address] [place], [address] Platelets (Bld) [#/Vol] 238 10*3/uL Normal 150-450 [facility] Comment on above: Performed By: #### L 300.3900, L300.4310, L503.7505, L300.8000, L500.2500, L503.6005, L100.0100 ####[facility] [address] [place], [address] RBC (Bld) [#/Vol] 4.98 10*6/uL Normal 4.2-5.4 [facility] Comment on above: Performed By: #### L 300.3900, L300.4310, L503.7505, L300.8000, L500.2500, L503.6005, L100.0100 ####[facility] [address] [place], [address] RDW SD 47.8 fl High 35.1-43.9 [facility] Comment on above: Performed By: #### L 300.3900, L300.4310, L503.7505, L300.8000, L500.2500, L503.6005, L100.0100 ####[facility] [address] [place], [place], [id number] WBC (Bld) [#/Vol] 7.5 10*3/uL Normal 4.4-11.0 [facility] Comment on above: Performed By: #### L 300.3900, L300.4310, L503.7505, L300.8000, L500.2500, L503.6005, L100.0100 ####[facility] [address] [place], [place], [address] CNOVon 05-24-2025 CNOV Office Visit (FAMPWS ) PERNELL RODRIGUEZ ([id number]) 1960 F Date Time Provider Department 05/24/25 1:20 PM [facility] During your visit today, we recorded the [...] below in ROS. Currently resides in Homeless longterm. Patient in office today and states that [...] is becoming much worse. She asked her Plater Helper for refills of her Nebulizer solution, but [...] pneumonia at an urgent care clinic near [facility] and was prescribed a blue antibiotic, possibly doxycycline. She took one dose, which caused nausea and vomiting, and she did not complete the course. She was subsequently evaluated at [place] [facility], where pneumonia was ruled out and [...] reports challenges with medication adherence due to longterm rules requiring her to be outside from [...] Chest pain 02/14/[address] Jacob in [facility]. Had a normal cardiac CTA in 2009 with no calcium. Chronic back pain greater than 3 months duration 04/02/2015 Chronic insomnia 03/12/2020 Ilya Calderón ([facility]) on melatonin. 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 Calderón Mixed hyperlipidemia 01/14/2014 Mixed incontinence urge and stress (male)(female) 07/25/2018 Morbid obesity due to excess calories ([facility]) 10/27/2016 Muscle weakness (generalized) 07/25/2018 Myofascial pain 04/16/2014 Nodule of left lung 12/17/2015 CT 09/2018 still stable, no further CT's needed. Seen on CT of abd/pelv 11/2015. CT 06/2016 showed stable left nodule, Stable 09/2016 repeat 10/2017: stable repeat 06/2018 Obesity, Class III, BMI >= 40 11/11/2023 Paroxysmal atrial fibrillation (HCC) 11/23/2021 Perforation of lef (more content not included)... Normal [facility] CTA Chest W/WO Contraston CTA Chest W/WO Contrast Normal [facility] Chest PA and Lateralon 05-24 Chest PA and Lateral Normal [facility] D-Dimer Quantitative (DVT/PE )on 05-24-2025 D-DIMER QUANT 1.43 FEU/ug/m Invalid Interpretation Code 0.27-0.49 [facility] Comment on above: Result Comment: D-Di lorene ELEVATED (>0.49): Additional studies and clinicalassessments are indicated to conclude diagnosis of:Deep Vein Thrombosis (DVT) or Pulmonary Embolism (PE)CRITICAL VALUE CALLED TO JAEL CABRERA05/24/25 1642 Olivia Butler.RESULTS READ BACK BY SAME. Performed By: #### L 300.3900, L300.4310, L503.7505, L300.8000, L500.2500, L503.6005, L100.0100 ####[facility] [address] [place], [address] Emergency Department Summary on 05-24-2025 Emergency Department Summary Normal [facility] H AND P Exam - Hospitaliston 05-24-2025 H&P Exam - Hospitalist Normal [facility] L501.4021on 05-24-2025 Trop T High Sen 19 ng/L High <=14 [facility] Comment on above: Performed By: #### L 501.4021 ####[facility] [address] [place], [address] Lactic Acidon 05-24-2025 Lactate [Moles/Vol] 1.1 mmol/L Normal 0.0-2.0 [facility] Comment on above: Order Comment: Y Performed By: #### L 300.3900, L300.4310, L503.7505, L300.8000, L500.2500, L503.6005, L100.0100 ####[facility] [address] [place], [address] M100.678on 05-24-2025 M100.678 Pending SARS-CoV-2 (COVID 19) Negative INFLUENZA A Negative INFLUENZA B Negative RSV PCR Negative Normal [facility] Comment on above: Performed By: #### M 100.678 ####[facility] [address] [place], [place], [phone] Partial Thromboplast Timeon 05-24-2025 aPTT Coag (Bld) [Time] 27.4 s Normal 24.1-36.2 [facility] Comment on above: Performed By: #### L 300.3900, L300.4310, L503.7505, L300.8000, L500.2500, L503.6005, L100.0100 ####[facility] [address] [place], [place], [id number] Pro- Brain NATRIURETIC PEPTI Radha 05-24-2025 Natriuretic peptide B (Bld) [Mass/Vol] 86 pg/mL Normal <=900 [facility] Comment on above: Result Comment: Hear t Failure Unlikely: < 300 pg/mLHeart Failure Likely< 50 Years: > 450 pg/mL50-75 Years: > 900 pg/mL>75 Years: > 1800 pg/mL Performed By: #### L 300.3900, L300.4310, L503.7505, L300.8000, L500.2500, L503.6005, L100.0100 ####[facility] [address] [place], [place], [phone] Prothrombin Time w/INRon INR Coag (PPP) [Relative time] 1.0 {INR} Normal [facility] Comment on above: Performed By: #### L 300.3900, L300.4310, L503.7505, L300.8000, L500.2500, L503.6005, L100.0100 ####[facility] [address] [place], [address] PT Coag (PPP) [Time] 13.6 s Normal 11.7-14.9 [facility] Comment on above: Performed By: #### L 300.3900, L300.4310, L503.7505, L300.8000, L500.2500, L503.6005, L100.0100 ####[facility] [address] [place], [address] Troponin T HS 2 HRon 025 Trop T High Sen 18 ng/L High <=14 [facility] Comment on above: Performed By: #### L 499.0042 ####[facility] [address] [place], [address] Troponin T HS 4 HRon 025 Trop T High Sen 19 ng/L High <=14 [facility] Comment on above: Performed By: #### L 499.0043 ####[facility] [address] [place], [address] Urinalysis, Completeon 05-24 BACTERIA 1+ /hpf Normal None Seen [facility] Comment on above: Order Comment: CLEAN CATCH Performed By: #### L 400.0001 ####[facility] [address] [place], [address] CAST,HYALINE 0-5 SEEN Normal 0-5 [facility] Comment on above: Order Comment: CLEAN CATCH Performed By: #### L 400.0001 ####[facility] [address] [place], [address] EPI,SQUAMOUS 0-5 SEEN Normal 5-10 [facility] Comment on above: Order Comment: CLEAN CATCH Performed By: #### L 400.0001 ####[facility] [address] [place], [address] WBC 0-5 SEEN Normal 0-5 [facility] Comment on above: Order Comment: CLEAN CATCH Performed By: #### L 400.0001 ####[facility] [address] [place], [address] Mucus Ql (Urine sed) 0 SEEN Normal [facility] Comment on above: Order Comment: CLEAN CATCH Performed By: #### L 400.0001 ####[facility] [address] [place], [address] RBC 0 SEEN Normal 0-5 [facility] Comment on above: Order Comment: CLEAN CATCH Performed By: #### L 400.0001 ####[facility] [address] [place], [place], [id number] 12 Lead EKGon 04-30-2025 12 Lead EKG Normal [facility] Absolute lymphocyte countOrd ered By: Ortiz Pinto on 04-30-2025 Lymphocytes Auto (Unsp spec) [#/Vol] 2.70 10*3/uL 0.83-4.51 [facility] Absolute neutrophil countOrd ered By: Ortiz Pinto on 04-30-2025 Neutrophils (Bld) [#/Vol] 4.8 10*3/uL 2.0-7.7 [facility] Anion gap in Serum or Plasma Ordered By: Ortiz Pinto on 04-30-2025 Anion gap [Moles/Vol] 14 mmol/L 11-29 [facility] Automated blood erythrocyte countOrdered By: Ortiz Pinto on 04-30-2025 RBC (Bld) [#/Vol] 5.19 10*6/uL Normal 4.2-5.4 [facility] Comment on above: Performed By: #### L 100.0100, L500.2500, L501.4021 ####[facility] [address] [place], [address] Automated blood hematocrit ( percentage)Ordered By: Ortiz Pinto on 04-30-2025 Hematocrit (Bld) [Volume fraction] 49.5 % High 37-47 [facility] Comment on above: Performed By: #### L 100.0100, L500.2500, L501.4021 ####[facility] [address] [place], [address] Automated lymphocyte count a s percentage of total leukocytesOrdered By: Ortiz Pinto on 04-30-2025 Lymphocytes/100 WBC Auto (Unsp spec) 31.2 % 19- [facility] BUN/creatinine ratioOrdered By: Ortiz Pinto on 04-30-2025 Urea nitrogen/Creatinine [Mass ratio] 10.6 mg/mg 10- [facility] Basic Metabolic Profile (BMP )on 04-30-2025 BUN/CRE 10.6 RATIO Normal 10-20 [facility] Comment on above: Performed By: #### L 100.0100, L500.2500, L501.4021 ####[facility] [address] [place], [address] ECRCL 39.90 ml/min Low 50-250 [facility] Comment on above: Performed By: #### L 100.0100, L500.2500, L501.4021 ####[facility] [address] [place], [address] GAP 14 Normal 5-15 [facility] Comment on above: Performed By: #### L 100.0100, L500.2500, L501.4021 ####[facility] [address] [place], [address] Potassium [Moles/Vol] 3.6 mmol/L Normal 3.3-5.1 [facility] Comment on above: Performed By: #### L 100.0100, L500.2500, L501.4021 ####[facility] [address] [place], [address] Basophil percentageOrdered B y: Ortiz Pinto on 04-30-2025 Basophils/100 WBC (Bld) 0.2 % Normal 0-1 [facility] Comment on above: Performed By: #### L 100.0100, L500.2500, L501.4021 ####[facility] [address] [place], [address] CBC W/Diff, Automatedon 04-17 Absolute Lymph 2.70 X10 3/uL Normal 0.83-4.51 [facility] Comment on above: Performed By: #### L 100.0100, L500.2500, L501.4021 ####[facility] [address] [place], [address] Absolute Neut 4.8 X10 3/uL Normal 2.0-7.7 [facility] Comment on above: Performed By: #### L 100.0100, L500.2500, L501.4021 ####[facility] [address] [place], [address] IG% 0.100 Normal 0.0-0.9 [facility] Comment on above: Result Comment: IG% - Immature Granulocytes (promyelocytes, myelocytes andmetamyelocytes) > 1% indicates that a LEFT SHIFT is Present. Performed By: #### L 100.0100, L500.2500, L501.4021 ####[facility] [address] [place], [address] Lymphocytes/100 WBC (Bld) 31.2 % Normal 19-41 [facility] Comment on above: Performed By: #### L 100.0100, L500.2500, L501.4021 ####[facility] [address] [place], [address] Nucleated RBC (Bld) [#/Vol] 0 10*3/uL Normal 0-5 [facility] Comment on above: Performed By: #### L 100.0100, L500.2500, L501.4021 ####[facility] [address] [place], [address] RDW SD 50.4 fl High 35.1-43.9 [facility] Comment on above: Performed By: #### L 100.0100, L500.2500, L501.4021 ####[facility] [address] [place], [address] Carbon dioxide, total [Moles /volume] in Central venous bloodOrdered By: Ortiz Pinto on 04-30-2025 CO2 [Moles/Vol] 26.2 mmol/L Normal 21.0-32.0 [facility] Comment on above: Performed By: #### L 100.0100, L500.2500, L501.4021 ####[facility] [address] [place], [address] Chest PA and Lateralon 04-30 Chest PA and Lateral Normal [facility] Chloride assayOrdered By: Rudy Pinto on 04-30-2025 Chloride [Moles/Vol] 100 mmol/L Normal 98-108 [facility] Comment on above: Performed By: #### L 100.0100, L500.2500, L501.4021 ####[facility] [address] [place], [address] Electrocardiogram reportOrde red By: Az Engle on 04-30-2025 EKG study [facility] [address] [place] [address] 12 Lead EKG 04/30/25 1812 MR#: [id number] Acct: [id number] Name: PERNELL RODRIGUEZ [place] Rep #:[id number] : 1960 65 From: Az Engle [...] Normal ECG Confirmed by JOSEPH GUSTAFSON, [place] ([id number]), legal editor FLORES BOUCHER ([id number]) on 0:54:59 AM Referred By: JW Confirmed By: AZ ENGLE MD 05/01/25 1051 Date _ Az Engle MD CC: Dr. Ortiz Pinto MD; Dr. Homer Bradford MD ~ Signed [facility] Other Emergency Department Summary on 04-30-2025 Emergency Department Summary Normal [facility] Eosinophil percentageOrdered By: Ortiz Pinto on 04-30-2025 Eosinophils/100 WBC (Bld) 5.1 % High 0-5 [facility] Comment on above: Performed By: #### L 100.0100, L500.2500, L501.4021 ####[facility] [address] [place], [address] Erythrocyte distribution wid th ratioOrdered By: Ortiz Pinto on 04-30-2025 Erythrocyte distribution width (RBC) [Ratio] 14.4 % Normal 11.6-14.6 [facility] Comment on above: Performed By: #### L 100.0100, L500.2500, L501.4021 ####[facility] [address] [place], [address] Erythrocyte distribution wid th standard deviationOrdered By: Ortiz Pinto on 04-30-2025 Erythrocyte distribution width (RBC) [Ratio] 50.4 fl High 35.1-43.9 [facility] Glomerular filtration rate ( GFR) estimation/1.73 sq m using serum, plasma, or whole bOrdered By: Ortiz Pinto on 04-30-2025 GFR/1.73 sq M.predicted among non-blacks MDRD (S/P/Bld) [Vol rate/Area] 34 mL/min/{1.73_m2} Low >60 [facility] Comment on above: mL/min/1.73m2 CKD-EP I Creatinine Equation (2020) Result Comment: mL/m in/1.73m2 CKD-EPI Creatinine Equation (2020) Performed By: #### L 100.0100, L500.2500, L501.4021 ####[facility] [address] [place], [address] Hemoglobin measurementOrdere d By: Ortiz Pinto on 04-30-2025 Hemoglobin (Bld) [Mass/Vol] 15.9 g/dL High 12.0-15.0 [facility] Comment on above: Performed By: #### L 100.0100, L500.2500, L501.4021 ####[facility] [address] [place], [address] Immature granulocytes/100 WB C Auto (Bld)Ordered By: Ortiz Pinto on 04-30-2025 Immature granulocytes/100 WBC (Bld) 0.100 % 0.0-0.9 [facility] Comment on above: IG% - Immature Granu locytes (promyelocytes, myelocytes and metamyelocytes) > 1% indicates that a LEFT SHIFT is Present. Influenza virus A and B and SARS-CoV-2 (COVID-19) and Respiratory syncytial virus RNAOrdered By: Ortiz Pinto on 04-30-2025 SARS-CoV-2 (COVID-19) RNA GERARDO+probe Ql (Unsp spec) [facility] L501.4021on 04-30-2025 Trop T High Sen 18 ng/L High <=14 [facility] Comment on above: Performed By: #### L 100.0100, L500.2500, L501.4021 ####[facility] [address] [place], [address] M100.678on 04-30-2025 M100.678 SARS-CoV-2 (COVID 19 ) Negative INFLUENZA A Negative INFLUENZA B Negative RSV PCR Negative Normal [facility] Comment on above: Performed By: #### M 100.678 ####[facility] [address] [place], [address] MCV (mean corpuscular volume ) determinationOrdered By: Ortiz Pinto on 04-30-2025 MCV (RBC) [Entitic vol] 95.4 fL Normal 81-99 [facility] Comment on above: Performed By: #### L 100.0100, L500.2500, L501.4021 ####[facility] [address] [place], [address] Mean corpuscular hemoglobin (MCH) determinationOrdered By: Ortiz Pinto on 04-30-2025 MCH (RBC) [Entitic mass] 30.6 pg Normal 27.0-32.0 [facility] Comment on above: Performed By: #### L 100.0100, L500.2500, L501.4021 ####[facility] [address] [place], [address] Mean corpuscular hemoglobin concentration (MCHC) determinationOrdered By: Ortiz Pinto on 04-30-2025 MCHC (RBC) [Mass/Vol] 32.1 g/dL Normal 32-36 [facility] Comment on above: Performed By: #### L 100.0100, L500.2500, L501.4021 ####[facility] [address] [place], [address] Mean platelet volume determi nationOrdered By: Ortiz Pinto on 04-30-2025 Platelet mean volume (Bld) [Entitic vol] 10.3 fL Normal 6.2-12.0 [facility] Comment on above: Performed By: #### L 100.0100, L500.2500, L501.4021 ####[facility] [address] [place], [address] Monocyte percentageOrdered B y: Ortiz Pinto on 04-30-2025 Monocytes/100 WBC (Bld) 8.0 % Normal 0-10 [facility] Comment on above: Performed By: #### L 100.0100, L500.2500, L501.4021 ####[facility] [address] [place], [address] Neutrophil percentageOrdered By: Ortiz Pinto on 04-30-2025 Neutrophils/100 WBC (Bld) 55.4 % Normal 47-70 [facility] Comment on above: Performed By: #### L 100.0100, L500.2500, L501.4021 ####[facility] [address] [place], [address] Nucleated red blood cell per centageOrdered By: Ortiz Pinto on 04-30-2025 Nucleated RBC/100 WBC (Bld) [Ratio] 0 % 0-5 [facility] Platelet countOrdered By: Rudy calderonscooter Blair on 04-30-2025 Platelets (Bld) [#/Vol] 275 10*3/uL Normal 150-450 [facility] Comment on above: Performed By: #### L 100.0100, L500.2500, L501.4021 ####[facility] [address] [place], [address] Potassium measurement (mass/ volume)Ordered By: Ortiz Pinto on 04-30-2025 Potassium (Unsp spec) [Mass/Vol] 3.6 mmol/L 3.3-5.1 [facility] Serum creatinine measurement (mass/volume)Ordered By: Ortiz Pinto on 04-30-2025 Creatinine [Mass/Vol] 1.69 mg/dL High 0.70-1.20 [facility] Comment on above: Performed By: #### L 100.0100, L500.2500, L501.4021 ####[facility] [address] [place], [address] Serum glucose measurement (m ass/volume)Ordered By: Ortiz Pinto on 04-30-2025 Glucose [Mass/Vol] 103 mg/dL High 70-99 [facility] Comment on above: Performed By: #### L 100.0100, L500.2500, L501.4021 ####[facility] [address] [place], [address] Serum or plasma calcium dane urement (mass/volume)Ordered By: Ortiz Pinto on 04-30-2025 Calcium [Mass/Vol] 9.6 mg/dL Normal 7.6-11.0 [facility] Comment on above: Performed By: #### L 100.0100, L500.2500, L501.4021 ####[facility] [address] [place], [address] Serum or plasma urea nitroge n measurement (mass/volume)Ordered By: Ortiz Pinto on 04-30-2025 Urea nitrogen [Mass/Vol] 18 mg/dL Normal 4-19 [facility] Comment on above: Performed By: #### L 100.0100, L500.2500, L501.4021 ####[facility] [address] [place], [address] Sodium levelOrdered By: Carlos Pinto on 04-30-2025 Sodium [Moles/Vol] 140 mmol/L Normal 133-145 [facility] Comment on above: Performed By: #### L 100.0100, L500.2500, L501.4021 ####[facility] [address] [place], [address] Troponin T HS 2 HRon 025 Trop T High Sen 16 ng/L High <=14 [facility] Comment on above: Performed By: #### L 499.0042 ####[facility] [address] [place], [address] Troponin T HS 4 HRon 025 Trop T High Sen Normal <=14 [facility] Comment on above: Result Comment: Canc elled via OM: Order cancelled - Patient discharged Performed By: #### L 499.0043 ####[facility] [address] [place], [address] Troponin T.cardiac [Mass/vol ume] in Serum or Plasma by High sensitivity methodOrdered By: Ortiz Pinto on 04-30-2025 Troponin T.cardiac High sensitivity method [Mass/Vol] 16 ng/L High <14 [facility] Troponin T.cardiac High sensitivity method [Mass/Vol] 18 ng/L High <14 [facility] Comment on above: Delta: 23 on 5-1122 White blood cell (WBC) count Ordered By: Ortiz Pinto on 04-30-2025 WBC (Bld) [#/Vol] 8.7 10*3/uL Normal 4.4-11.0 [facility] Comment on above: Performed By: #### L 100.0100, L500.2500, L501.4021 ####[facility] [address] [place], [address] CNOVon 04-04-2025 CNOV Office Visit (ORTHWS ) PERNELL RODRIGUEZ ([id number]) 1960 F Date Time Provider Department 04/04/25 11:20 AM ORTIZ MASSEY During your visit today, we recorded the following information about you: Ortiz Massey MD 04/05/2025 11:29 AM Signed Ortiz Massey MD Department of Orthopaedics Orthopaedics [address] [facility] [address] Dept: [phone] Dept April 04, 2025 CHIEF COMPLAINT: New [...] complication, without long-term current use of insulin ([facility]) 1. Adhesive capsulitis of left [...] and further assess adhesive capsulitis; explained that [employer] insurance may require additional physical therapy sessions [...] complication, without long-term current use of insulin ([facility]), patient to schedule visit as per follow up discussed. OBJECTIVE: Ms. Pernell Rodriguez is a pleasant 65 year old in no apparent distress. Gen:LMP 02/22/2006 nl development, obese, no deformities ENT: Normocephalic, normal hearing, moist mucosa CV: Pulses:Radial= 2+ and symmetric, capillary refill < 2 secs, no peripheral edema/v (more content not included)... Normal [facility] PERNELL RODRIGUEZ ([id number]) 1960 F Date Time Provider Department 03/27/[facility] During your visit today, we recorded the following information about you: Erwin Harvey RN 03/27/2025 2:22 PM Signed Pt reports she picked up the letter in Medical Records and now the [facility] wants a letter from pcp stating all of patient's diagnoses and the names of all the doctors who treat her. Pt would like pcp office to fax this letter to [facility]. Pt will call back with fax number. Homer Bradford MD 03/28/2025 8:21 AM Signed See if Pernell can give us the name and number of a contact center agent at the [facility]. Then let them know know they need [...] and phone number phone number of a contact center agent at the [facility] so that we may contact them. Pt looked for it and states she can't find it, but will call back with that information and give to nurse. Pt asking if pcp can send her an Rx for lidocaine patch to [facility]. Reports she needs an Rx in [...] tablet b (more content not included)... [facility] 03-25-2025 CNPN Telephone (FAMPWS) PERNELL RODRIGUEZ ([id number]) 1960 F Date Time Provider Department 03/25/[facility] During your visit today, we recorded the following information about you: Mary Ann Rodriguez LPN 03/25/2025 9:28 AM Signed Patient calling asking for a letter from PCP saying he agrees would be good idea for her to go into [facility]isted Living [facility]. Patient [place] [address] [facility] area, did not know the name. Please call patient when ready for bead picker. Please advise Mary Ann Rodriguez LPN 03/25/2025 10:15 AM Signed Patient calling back said assisted living is called [facility]. Homer Bradford MD 03/25/2025 4:10 PM Signed Let patient know letter ready for bead picker. Jose Jarrell MA 03/25/2025 4:18 PM Signed Call to pt and notified her letter is ready for bead picker at [facility]. Pt will be her tomorrow to bead picker. Jose Jarrell MA Allergies As of Date: [...] accident) [Z86.*04/25/2015 (more content not included)... [facility] CNPNon 03-19-2025 CNPN Telephone (TAWANAWST) PERNELL RODRIGUEZ ([id number]) 1960 F Date Time Provider Department 03/19/25 ZOILA SAEG During your visit today, we recorded the following information about you: Zoila Sage, JUDIE 03/19/2025 9:59 AM Signed Sw received message from patient asking about name of worker from [employer] that was helping patient with housing assistance. 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 Aaron also left number for [employer] Chaitanya ph. [phone]. Allergies As of Date: 03/19/2025 Noted Allergy [...] 04/25/2015 Major depressive disorder, recurrent episode, m*04/25/2015 Dyer or callus [L84] 11/16/2015 Nodule of left lung [R91.1] 12/17/2015 Well adult exam [Z00.00] 10/27/2016 Colon cancer screening [Z12.11] 10/27/2016 Migraine without aura and without status m (more content not included)... [facility] Laboratory - Chemistry and C hemistry - challengeOrdered By: Jennifer Alba on 03-11-2025 Bilirubin Ql (U) Negative [facility] Glucose Ql (U) Negative [facility] Ketones Ql (U) Negative [facility] pH (U) 6 [pH] [facility] Specific gravity (U) [Rel density] 1.015 [facility] Urobilinogen (U) [Mass/Vol] Negative [facility] Laboratory - Hematology and Cell countsOrdered By: Jennifer Alba on 03-11-2025 Hemoglobin Ql (U) Negative [facility] Laboratory - UrinalysisOrder ed By: Jennifer Alba on 03-11-2025 Nitrite Ql (U) Negative [facility] Protein Ql (U) Negative [facility] MR/BMS.BUSon 03-11-2025 MR/BMS.BUS Normal [facility] No Panel InformationOrdered By: Jennifer Alba on 03-11-2025 Urine Leukocytes Negatve [facility] Urine Non-Hemolyzed Blood Negative [facility] CNPNon 03-05-2025 CNPN Telephone (NICHOLAS) PERNELL RODRIGUEZ ([id number]) 1960 F Date Time Provider Department 03/05/25 [...] edema [ (more content not included)... Normal [facility] CNPNon 03-04-2025 CNPN Telephone (NICHOLAS) PERNELL RODRIGUEZ ([id number]) 1960 F Date Time Provider Department 03/04/25 [...] said that she tried to get to [employer], but couldn't find her walker. Patient asked if Aaron for have Elsie give her a call again. Aaron called and left Jimy Zimmerman a message asking that she call Aaron back to discuss. Zoila Sage, AQUACULTURE FARM MANAGER 03/05/2025 12:00 PM Signed Sw spoke with Elsie, [employer], Senior Outreach. Elsie reports that she will [...] Bipolar affe (more content not included)... Normal [facility] - Chemistry and C hemistry - challengeOrdered By: Jennifer Alba on 02-27-2025 Bilirubin Ql (U) Negative [facility] Glucose Ql (U) Negative [facility] Ketones Ql (U) Negative [facility] pH (U) 5 [pH] [facility] Specific gravity (U) [Rel density] 1.010 [facility] Urobilinogen (U) [Mass/Vol] 2 mg/dL [facility] Laboratory - Hematology and Cell countsOrdered By: Jennifer Alba on 02-27-2025 Hemoglobin Ql (U) Negative [facility] Laboratory - UrinalysisOrder ed By: Jennifer Alba on 02-27-2025 Nitrite Ql (U) Negative [facility] Protein Ql (U) Negative [facility] MR/BMS.CONCETTAon 02-27-2025 MR/BMS.CONCETTA Normal [facility] No Panel InformationOrdered By: Jennifer Alba on 02-27-2025 Urine Leukocytes Positive [facility] Urine Non-Hemolyzed Blood Negative [facility] Negative [facility] 2 mg/dL [facility] 1.010 [facility] 5 [facility] Positive [facility] CNOVon 02-21-2025 CN Office Visit (FAMPWS ) PERNELL RODRIUGEZ ([id number]) 1960 F Date Time Provider Department 02/21/25 1:00 PM [facility] During your visit today, we recorded [...] She is under the care of a programming specialist, who removed the scab, but she missed a recent appointment due to transportation issues. She also reports a history of a sore on the front of her leg, which was deemed perfect by her programming specialist. She denies recent fevers or chills. [...] and has an upcoming appointment with her vocational rehabilitation specialist, Dr. Christopher, on the . She is also trying to get more exercise and uses a roller walker for mobility. She is actively seeking housing and is in contact with the [employer], although she reports difficulties with the new software development project manager. She is currently staying with a [...] Chest pain 02/14/[address] Jacob in [facility]. Had a normal cardiac CTA in 2009 with no calcium. Chronic back pain greater than 3 months duration 04/02/2015 Chronic insomnia 03/12/2020 Ilya Calderón ([facility]) on melatonin. Chronic obstructive pulmonary disease (HCC) 04/25/2015 Chronic pain 01/14/2014 Constipation 02/12/2014 Dyer or callus 11/16/2015 Current use of proton [...] Migraine wit (more content not included)... [facility]N Telephone (TAWANAWST) PERNELL RODRIGUEZ ([id number]) 1960 F Date Time Provider Department 02/21/25 ZOILA SAGE During your visit today, we recorded the following information about you: Zoila Sage MSW 02/21/2025 4:32 PM Signed Patient is currently staying with a lady at [address] [facility]. Patient notes that she has stayed therelonger then she should. Patient looking for a 2 bedroom apt. Patient reports that she will not go back to [employer]. Patient reports that she checked with [employer], but they do not have an open bed. Patient reports that she also had to pay $10.00 for taxi cab to get to doctor appt today. Sw asked patient if she knew about [employer] and their new curb to curb service. Patient reports that she is not aware of the new transportation program. Sw asked patient if she would like Sw to reach out to Jimy Zimmerman, Senior Outreach to help with housing and transportation needs. Patient notes that would be helpful. [facility] also has the housing and support services program that used to be at [address]. Zoila Sage, AQUACULTURE FARM MANAGER 02/21/2025 4:32 PM Signed Aaron called and [...] 04/16/2014 Hyp (more content not included)... Normal [facility] Pulmonary Visit Reporton Pulmonary Visit Report Normal [facility] History AND Physic lesley 01-31-2025 Wound Ctr History & Physical Normal [facility] Bacteria Ur Culton Bacteria identified Cx Nom (U) ORGANISM ID: 1 50,000-<100,000 CFU/ml Normal urogenital maik Normal [facility] Comment on above: Performed By: #### 6 30-4 ####[facility] LABCLIA [id number] [address] [place] OF [facility] CNOVon 01-25-2025 CNOV Office Visit (FAMPWS ) PERNELL RODRIGUEZ ([id number]) 1960 F Date Time Provider Department 01/25/25 [...] Chest pain 02/14/[address] Jacob in [facility]. Had a normal cardiac CTA in 2009 with no calcium. Chronic back pain greater than 3 months duration 04/02/2015 Chronic insomnia 03/12/2020 Ilya Calderón ([facility]) on melatonin. Chronic obstructive pulmonary disease ([facility]) 04/25/2015 Chronic pain 01/14/2014 Constipation 02/12/2014 Dyer or callus 11/16/2015 Current use of proton pump inhibitor 10/11/2017 CVA (cerebral infarction) 01/14/2014 Diabetic eye exam ([facility]) 01/14/[address] Sanchez last done 03/02/2019 Diabetic foot ([facility]) 01/14/[address] Martins Extrapyramidal [...] 04/16/2014 Major depressive disorder, recurrent episode, moderate ([facility]) 04/25/2015 On disability Migraine without [...] WNL 2D ECHO (EXEP) 01/14/2014 EF=65% Trival NV, TI, PI, LA enlarged. CARPAL TUNNEL Bilateral 08/28 and 09/25 COLONOSCOPY FLX DX W/COLLJ SPEC WHEN PFRMD 2011 [facility] Colonoscopy, no polyps repeat 10 yrs [...] Disease No (more content not included)... Normal [facility] UA DIP, URINE (POC)on 2024 BILIRUBIN UA (POCT) Negative Negative [facility] CLARITY UA (POCT) Clear [facility] COLOR UA (POCT) Yellow [facility] GLUCOSE UA (POCT) Negative Negative mg/dL [facility] Hemoglobin Ql (U) Trace-intact Abnormal Negative [facility] Interpretation and review of laboratory results Abnormal [facility] KETONE UA (POCT) Negative Negative mg/dL [facility] LEUKOCYTES UA (POCT) Negative Negative [facility] NITRITE UA (POCT) Negative Negative [facility] PH UA (POCT) 6 4.5 - 8.0 [facility] Protein Ql (U) Negative Negative mg/dL [facility] SPECIFIC GRAVITY UA (POCT) 1.02 1.005 - 1.030 [facility] UROBILINOGEN UA (POCT) 0.2 Yolanda l E.U./dL [facility] Location:[address], [place], [place], [address] [place] [address] POINT OF CARE [facility] Basic metabolic 2000 panelon 01-17-2025 Anion gap [Moles/Vol] 14 mmol/L Normal 8-15 [facility] Comment on above: Order Comment: Speci men Type: BLOOD SPECIMENOrdering Facility: [facility] Address: [address] [place] [address] Performed By: #### 2 4321-2 ####[facility] LABCLIA [id number] [place] [address] [place] Calcium [Mass/Vol] 9.8 mg/dL Normal 8.5-10.2 [facility] Comment on above: Order Comment: Speci men Type: BLOOD SPECIMENOrdering Facility: [facility] Address: [address] [place] [address] Performed By: #### 2 4321-2 ####[facility] LABCLIA [id number] [place] [id number] [place] Chloride [Moles/Vol] 100 mmol/L Normal 98-107 [facility] Comment on above: Order Comment: Speci men Type: BLOOD SPECIMENOrdering Facility: [facility] Address: [address] [place] [address] Performed By: #### 2 4321-2 ####[facility] LABIA [id number] [place] [address] [place] CO2 [Moles/Vol] 26 mmol/L Normal 22-30 [facility] Comment on above: Order Comment: Speci men Type: BLOOD SPECIMENOrdering Facility: [facility] Address: [address] [place] [address] Performed By: #### 2 4321-2 ####[facility] LABCLIA [id number] [place] [address] [place] Creatinine [Mass/Vol] 1.54 mg/dL High 0.58-0.96 [facility] Comment on above: Order Comment: Speci men Type: BLOOD SPECIMENOrdering Facility: [facility] Address: [address] [place] [address] Performed By: #### 2 4321-2 ####[facility] LABIA [id number] [address] OF [place] Creatinine and Glomerular filtration rate.predicted panel (S/P/Bld) 38 mL/min/1.73m??? Low >=60 [facility] Comment on above: Order Comment: Speci men Type: BLOOD SPECIMENOrdering Facility: [facility] Address: [address] [place] [address] Result Comment: Maurilio mated Glomerular Filtration Rate [...] actual GFR. Performed By: #### 2 4321-2 ####[facility] LABCLIA [id number] [address] [address] [place] Glucose [Mass/Vol] 75 mg/dL Normal 74-99 [facility] Comment on above: Order Comment: Speci men Type: BLOOD SPECIMENOrdering Facility: [facility] Address: [address] [place] [address] Result Comment: The [employer] Diabetes Association (ADA) provides guidance for cutoff [...] Standards of Medical Care in Diabetes 2016, British Diabetes Association. Diabetes Care. 2016.39(Suppl 1). Performed By: #### 2 4321-2 ####[facility] LABCLIA [id number] [address] [address] [place] Potassium [Moles/Vol] 3.9 mmol/L Normal 3.7-5.1 [facility] Comment on above: Order Comment: Speci men Type: BLOOD SPECIMENOrdering Facility: [facility] Address: [address] [place] [id number] Performed By: #### 2 4321-2 ####[facility] LABCLIA [id number] [facility] [address] [address] [place] Sodium [Moles/Vol] 140 mmol/L Normal 136-144 [facility] Comment on above: Order Comment: Speci men Type: BLOOD SPECIMENOrdering Facility: [facility] Address: [address] [place] [address] Performed By: #### 2 4321-2 ####[facility] LABCLIA [id number] [address] [place] Urea nitrogen [Mass/Vol] 17 mg/dL Normal 7-21 [facility] Comment on above: Order Comment: Speci men Type: BLOOD SPECIMENOrdering Facility: [facility] Address: [address] [place] [address] Performed By: #### 2 4321-2 ####[facility] LABCLIA [id number] [place] [address] [place] CBC W Auto Differential pane l (Bld)on 01-17-2025 Basophils (Bld) [#/Vol] 0.05 10*3/uL [facility] Basophils/100 WBC (Bld) 0.5 % [facility] Differential cell count method Nom (Bld) Auto [facility] Eosinophils (Bld) [#/Vol] 0.22 10*3/uL [facility] Eosinophils/100 WBC (Bld) 2.3 % [facility] Erythrocyte distribution width (RBC) [Ratio] 13.9 % 11.5 - 15.0 % [facility] Hematocrit (Bld) [Volume fraction] 45.2 % 36.0 - 46.0 % [facility] Hemoglobin (Bld) [Mass/Vol] 14.5 g/dL 11.5 - 15.5 g/dL [facility] Immature granulocytes (Bld) [#/Vol] 0.03 10*3/uL [facility] Immature granulocytes/100 WBC (Bld) 0.3 % [facility] Interpretation and review of laboratory results Abnormal [facility] Lymphocytes (Bld) [#/Vol] 2.28 10*3/uL [facility] Lymphocytes/100 WBC (Bld) 23.8 % [facility] MCH (RBC) [Entitic mass] 30.7 pg 26. 0 - 34.0 pg [facility] MCHC (RBC) [Mass/Vol] 32.1 g/dL 30.5 - 36.0 g/dL [facility] MCV (RBC) [Entitic vol] 95.6 fL 80.0 - 100.0 fL [facility] Monocytes (Bld) [#/Vol] 0.87 10*3/uL High NINF [facility] Monocytes/100 WBC (Bld) 9.1 % C [facility] Neutrophils (Bld) [#/Vol] 6.11 10*3/uL [facility] Neutrophils/100 WBC (Bld) 64 % [facility] Nucleated RBC (Bld) [#/Vol] NINF [facility] Nucleated RBC/100 WBC (Bld) [Ratio] 0 % /100 WBC [facility] Platelet mean volume (Bld) [Entitic vol] 11.1 fL 9.0 - 12.7 fL [facility] Platelets (Bld) [#/Vol] 277 10*3/uL [facility] RBC (Bld) [#/Vol] 4.73 10*6/uL 3.90 - 5.2 0 m/uL [facility] WBC (Bld) [#/Vol] 9.56 10*3/uL [facility] Basophils (Bld) [#/Vol] 0.05 10*3/uL Normal <0.11 [facility] Comment on above: Order Comment: Speci men Type: BLOOD SPECIMENOrdering Facility: [facility] Address: [address] [place] [address] Performed By: #### 5 7021-8 ####[facility] LABIA [id number] [place] [address] [place] Basophils/100 WBC (Bld) 0.5 % Normal [facility] Comment on above: Order Comment: Speci men Type: BLOOD SPECIMENOrdering Facility: [facility] Address: [address] [place] [address] Performed By: #### 5 7021-8 ####[facility] LABIA [id number] [place] [address] [place] Differential cell count method Nom (Bld) Auto Normal [facility] Comment on above: Order Comment: Speci men Type: BLOOD SPECIMENOrdering Facility: [facility] Address: [address] [place] [address] Performed By: #### 5 7021-8 ####[facility] LABCLIA [id number] [address], [place] [address] [place] Eosinophils (Bld) [#/Vol] 0.22 10*3/uL Normal <0.46 [facility] Comment on above: Order Comment: Speci men Type: BLOOD SPECIMENOrdering Facility: [facility] Address: [address] [place] [address] Performed By: #### 5 7021-8 ####[facility] LABCLIA [id number] [address], [place] [address] [place] Eosinophils/100 WBC (Bld) 2.3 % Normal [facility] Comment on above: Order Comment: Speci men Type: BLOOD SPECIMENOrdering Facility: [facility] Address: [address] [place] [address] Performed By: #### 5 7021-8 ####[facility] LABCLIA [id number] [address], [place] [address] [place] Erythrocyte distribution width (RBC) [Ratio] 13.9 % Normal 11.5-15.0 [facility] Comment on above: Order Comment: Speci men Type: BLOOD SPECIMENOrdering Facility: [facility] Address: [address] [place] [address] Performed By: #### 5 7021-8 ####[facility] LABCLIA [id number] [facility] [address], [facility] [place] Hematocrit (Bld) [Volume fraction] 45.2 % Normal 36.0-46.0 [facility] Comment on above: Order Comment: Speci men Type: BLOOD SPECIMENOrdering Facility: [facility] Address: [address] [place] [address] Performed By: #### 5 7021-8 ####[facility] LABCLIA [id number] [place] [place] [address] [place] Hemoglobin (Bld) [Mass/Vol] 14.5 g/dL Normal 11.5-15.5 [facility] Comment on above: Order Comment: Speci men Type: BLOOD SPECIMENOrdering Facility: [facility] Address: [address] [place] [address] Performed By: #### 5 7021-8 ####[facility] LABCLIA [id number] [place] [address] [place] Immature granulocytes (Bld) [#/Vol] 0.03 10*3/uL Normal <0.10 [facility] Comment on above: Order Comment: Speci men Type: BLOOD SPECIMENOrdering Facility: [facility] Address: [address] [place] [address] Performed By: #### 5 7021-8 ####[facility] LABCLIA [id number] [place] [address] [place] Immature granulocytes/100 WBC (Bld) 0.3 % Normal [facility] Comment on above: Order Comment: Speci men Type: BLOOD SPECIMENOrdering Facility: [facility] Address: [address] [place] [address] Performed By: #### 5 7021-8 ####[facility] LABCLIA [id number] [place] [address] [place] Lymphocytes (Bld) [#/Vol] 2.28 10*3/uL Normal 1.00-4.00 [facility] Comment on above: Order Comment: Speci men Type: BLOOD SPECIMENOrdering Facility: [facility] Address: [address] [place] [address] Performed By: #### 5 7021-8 ####[facility] LABCLIA [id number] [place] [address] [place] Lymphocytes/100 WBC (Bld) 23.8 % Normal [facility] Comment on above: Order Comment: Speci men Type: BLOOD SPECIMENOrdering Facility: [facility] Address: [address] [place] [address] Performed By: #### 5 7021-8 ####[facility] LABCLIA [id number] [place] [address] [place] MCH (RBC) [Entitic mass] 30.7 pg Normal 26.0-34.0 [facility] Comment on above: Order Comment: Speci men Type: BLOOD SPECIMENOrdering Facility: [facility] Address: [address] [place] [address] Performed By: #### 5 7021-8 ####[facility] LABCLIA [id number] [place] [address] [place] MCHC (RBC) [Mass/Vol] 32.1 g/dL Normal 30.5-36.0 [facility] Comment on above: Order Comment: Speci men Type: BLOOD SPECIMENOrdering Facility: [facility] Address: [address] [place] [address] Performed By: #### 5 7021-8 ####[facility] LABCLIA [id number] [place] [address] [place] MCV (RBC) [Entitic vol] 95.6 fL Normal 80.0-100.0 [facility] Comment on above: Order Comment: Speci men Type: BLOOD SPECIMENOrdering Facility: [facility] Address: [address] [place] [address] Performed By: #### 5 7021-8 ####[facility] LABCLIA [id number] [place] [address] [place] Monocytes (Bld) [#/Vol] 0.87 10*3/uL High <0.87 [facility] Comment on above: Order Comment: Speci men Type: BLOOD SPECIMENOrdering Facility: [facility] Address: [address] [place] [address] Performed By: #### 5 7021-8 ####[facility] LABCLIA [id number] [place] [address] [place] Monocytes/100 WBC (Bld) 9.1 % Normal [facility] Comment on above: Order Comment: Speci men Type: BLOOD SPECIMENOrdering Facility: [facility] Address: [address] [place] [address] Performed By: #### 5 7021-8 ####[facility] LABCLIA [id number] [place] [address] [place] Neutrophils (Bld) [#/Vol] 6.11 10*3/uL Normal 1.45-7.50 [facility] Comment on above: Order Comment: Speci men Type: BLOOD SPECIMENOrdering Facility: [facility] Address: [address] [place] [address] Performed By: #### 5 7021-8 ####[facility] LABCLIA [id number] [place] [address] [place] Neutrophils/100 WBC (Bld) 64.0 % Normal [facility] Comment on above: Order Comment: Speci men Type: BLOOD SPECIMENOrdering Facility: [facility] Address: [address] [place] [address] Performed By: #### 5 7021-8 ####[facility] LABCLIA [id number] [place] [address] [place] Nucleated RBC (Bld) [#/Vol] 10*3/uL Normal <0.01 [facility] Comment on above: Order Comment: Speci men Type: BLOOD SPECIMENOrdering Facility: [facility] Address: [address] [place] [address] Performed By: #### 5 7021-8 ####[facility] LABCLIA [id number] [place] [address] [place] Nucleated RBC/100 WBC (Bld) [Ratio] 0.0 /100 WBC Normal [facility] Comment on above: Order Comment: Speci men Type: BLOOD SPECIMENOrdering Facility: [facility] Address: [address] [place] [address] Performed By: #### 5 7021-8 ####[facility] LABCLIA [id number] [address] [address] [place] Platelet mean volume (Bld) [Entitic vol] 11.1 fL Normal 9.0-12.7 [facility] Comment on above: Order Comment: Speci men Type: BLOOD SPECIMENOrdering Facility: [facility] Address: [address] [place] [address] Performed By: #### 5 7021-8 ####[facility] LABIA [id number] [place] [address] [place] Platelets (Bld) [#/Vol] 277 10*3/uL Normal 150-400 [facility] Comment on above: Order Comment: Speci men Type: BLOOD SPECIMENOrdering Facility: [facility] Address: [address] [place] [address] Performed By: #### 5 7021-8 ####[facility] [id number] [place] [address] [place] RBC (Bld) [#/Vol] 4.73 10*6/uL Normal 3.90-5.20 [facility] Comment on above: Order Comment: Speci men Type: BLOOD SPECIMENOrdering Facility: [facility] Address: [address] [place] [address] Performed By: #### 5 7021-8 ####[facility] [id number] [address] [address] [place] WBC (Bld) [#/Vol] 9.56 10*3/uL Normal 3.70-11.00 [facility] Comment on above: Order Comment: Speci men Type: BLOOD SPECIMENOrdering Facility: [facility] Address: [address] [place] [address] Performed By: #### 5 7021-8 ####[facility] DAVID [id number] [place] [id number] [facility] CNOVon 01-17-2025 CNOV Office Visit (FAMPWS ) PERNELL RODRIGUEZ ([id number]) 1960 F Date Time Provider Department 01/17/25 11:40 AM MEAGAN YUSUFWS During your visit today, we recorded the following information about you: Temperature Pulse Respiration Blood pressure 99.5 degrees 79/minute 18/minute 120/68 Weight 111.6 kg Meagan Yusuf PA-C 01/17/2025 12:02 PM Signed Chief Complaint Patient presents with: Hospital F/U [facility] Pernell Rodriguez is a 64 [...] with a friend but will move to [employer] around the or . - Lost test case developer through [facility]; no current test case developer. 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 Past medical history, appointments, medications, allergies reviewed. Previous Medical History PAST MEDICAL HISTORY Diagnosis Date ASHD (arteriosclerotic heart disease) 10/25/[address] Goins Bilateral leg edema 04/25/2015 Bipolar affective disorder (HCC) 04/25/[address] Colindres Chest pain 02/14/[address] Jacob in [facility]. Had a normal cardiac CTA in 2009 with no calcium. Chronic back pain greater than 3 months duration 04/02/2015 Chronic insomnia 03/12/2020 Ilya Calderón ([facility]) on melatonin. Chronic obstructive pulmonary disease ([facility]) 04/25/2015 Chronic pain 01/14/2014 Constipation 02/12/2014 Dyer or callus 11/16/2015 Current use of proton pump inhibitor 10/11/2017 CVA (cerebral infarction) 01/14/2014 Diabetic eye exam ([facility]) 01/14/[address] Sanchez last done 03/02/2019 Diabetic foot ([facility]) 01/14/[address] Martins Extrapyramidal [...] 04/16/2014 Major depressive disorder, recurrent episode, moderate ([facility]) 04/25/2015 On disability Migraine without aura and without status migrainosus, not intractable 04/28/[address] Calderón Mixed hyperlipidemia 01/14/2014 Mixed incontinence urge and stress (male)(female) 07/25/2018 Morbid obesity due to excess calories ([facility]) 10/27/2016 Muscle weakness (generalized) 07/25/2018 [...] 1.5 PPD Stage 3b chronic kidney disease ([facility]) 11/24/2020 Tardive dyskinesia 03/12/2020 Ilya Calderón ([facility]) Type 2 diabetes mellitus with stage 3b chronic kidney disease ([facility]) 04/25/2015 Type 2 diabetes mellitus without complication ([facility]) 04/25/2015 Urinary incontinence 07/08/2017 Well adult exam 10/27/2016 last done: 06/09/2022 Previous Surgical History PAST SURGICAL HISTORY Procedure Laterality Date *STRESS TEST PC (more content not included)... Normal [facility] Culture, Blood (WB)on 2024 CUB Blood cultures x2, from two different sites No growth in 5 days. Normal [facility] Comment on above: Performed By: #### M 200.1000 ####[facility] [address] [place], [place], [address] Bedside Glucoseon 01-11-2025 FINGERSTICK GLU 121 mg/dL High 74-106 [facility] Comment on above: Result Comment: BJ GEMENT OF PATIENT CARE PER NURSING PROTOCOL Performed By: #### L 501.080 ####[facility] [address] [place], [address] FINGERSTICK GLU 88 mg/dL Normal 74-106 [facility] Comment on above: Result Comment: BJ GEMENT OF PATIENT CARE PER NURSING PROTOCOL Performed By: #### L 501.080 ####[facility] [address] [place], [address] [facility] 01-11-2025 [facility] PERNELL RODRIGUEZ ([id number]) 1960 F IPA Date Time Provider Department 01/11/25 [facility] During your visit today, we recorded the following information about you: Jose Jarrell MA 01/11/2025 3:49 PM Signed Type of form: Medical Necessity - received from [facility] Delivery Form received via fax When form is completed, Fax form to [phone] Form has been forwarded to Physician Desk: [...] - Fully Assessed Reason for Visit: Forms [343] Cmt: CMN Prescriptions as of 01/11/2025 - [...] Chronic ob (more content not included)... Normal [facility] Discharge Instructionon 12-17 Discharge Instruction Normal [facility] Glucose measurement at [facility] deOrdered By: Peter Herbert on 01-11-2025 Glucose [Mass/Vol] 121 mg/dL High 74-106 [facility] Comment on above: MANAGEMENT OF PATIEN T CARE PER NURSING PROTOCOL Anion gap in Serum or Plasma Ordered By: Luis Antonio Navarro on 01-10-2025 Anion gap [Moles/Vol] 12 mmol/L 5- [facility] BUN/creatinine ratioOrdered By: Luis Antonio Navarro on 01-10-2025 Urea nitrogen/Creatinine [Mass ratio] 9.7 mg/mg Low - [facility] Basic Metabolic Profile (BMP )on 01-10-2025 BUN/CRE 9.7 RATIO Low - [facility] Comment on above: Performed By: #### L 500.2500, L100.0500 ####[facility] [address] [place], [address] Calcium [Mass/Vol] 8.9 mg/dL Normal 7.6-11.0 [facility] Comment on above: Performed By: #### L 500.2500, L100.0500 ####[facility] [address] [place], [address] Chloride [Moles/Vol] 112 mmol/L High 98-108 [facility] Comment on above: Performed By: #### L 500.2500, L100.0500 ####[facility] [address] [place], [address] CO2 [Moles/Vol] 19.9 mmol/L Low 21.0-32.0 [facility] Comment on above: Performed By: #### L 500.2500, L100.0500 ####[facility] [address] [place], [address] Creatinine [Mass/Vol] 1.25 mg/dL High 0.70-1.20 [facility] Comment on above: Performed By: #### L 500.2500, L100.0500 ####[facility] [address] [place], [address] ECRCL 55.62 ml/min Normal 50-250 [facility] Comment on above: Performed By: #### L 500.2500, L100.0500 ####[facility] [address] [place], [address] GAP 12 Normal 5-15 [facility] Comment on above: Performed By: #### L 500.2500, L100.0500 ####[facility] [address] [place], [address] GFR/1.73 sq M.predicted among non-blacks MDRD (S/P/Bld) [Vol rate/Area] 49 mL/min/{1.73_m2} Low >60 [facility] Comment on above: Result Comment: mL/m in/1.73m2 CKD-EPI Creatinine Equation (2020) Performed By: #### L 500.2500, L100.0500 ####[facility] [address] [place], [address] Glucose [Mass/Vol] 92 mg/dL Normal 70-99 [facility] Comment on above: Performed By: #### L 500.2500, L100.0500 ####[facility] [address] [place], [address] Potassium [Moles/Vol] 3.5 mmol/L Normal 3.3-5.1 [facility] Comment on above: Performed By: #### L 500.2500, L100.0500 ####[facility] [address] [place], [address] Sodium [Moles/Vol] 144 mmol/L Normal 133-145 [facility] Comment on above: Performed By: #### L 500.2500, L100.0500 ####[facility] [address] [place], [address] Urea nitrogen [Mass/Vol] 12 mg/dL Normal 4-19 [facility] Comment on above: Performed By: #### L 500.2500, L100.0500 ####[facility] [address] [place], [address] Bedside Glucoseon 01-10-2025 FINGERSTICK GLU 107 mg/dL High 74-106 [facility] Comment on above: Result Comment: BJ GEMENT OF PATIENT CARE PER NURSING PROTOCOL Performed By: #### L 501.080 ####[facility] [address] [place], [address] FINGERSTICK GLU 96 mg/dL Normal 74-106 [facility] Comment on above: Result Comment: BJ GEMENT OF PATIENT CARE PER NURSING PROTOCOL Performed By: #### L 501.080 ####[facility] [address] [place], [address] FINGERSTICK GLU 108 mg/dL High 74-106 [facility] Comment on above: Result Comment: BJ GEMENT OF PATIENT CARE PER NURSING PROTOCOL Performed By: #### L 501.080 ####[facility] [address] [place], [address] FINGERSTICK GLU 90 mg/dL Normal 74-106 [facility] Comment on above: Result Comment: BJ GEMENT OF PATIENT CARE PER NURSING PROTOCOL Performed By: #### L 501.080 ####[facility] [address] [place], [address] CBC-Complete Blood Cnt No Di ffon 01-10-2025 Erythrocyte distribution width (RBC) [Ratio] 13.7 % Normal 11.6-14.6 [facility] Comment on above: Performed By: #### L 500.2500, L100.0500 ####[facility] [address] [place], [address] Hematocrit (Bld) [Volume fraction] 37.8 % Normal 37-47 [facility] Comment on above: Performed By: #### L 500.2500, L100.0500 ####[facility] [address] [place], [address] Hemoglobin (Bld) [Mass/Vol] 12.3 g/dL Normal 12.0-15.0 [facility] Comment on above: Performed By: #### L 500.2500, L100.0500 ####[facility] [address] [place], [address] MCH (RBC) [Entitic mass] 30.9 pg Normal 27.0-32.0 [facility] Comment on above: Performed By: #### L 500.2500, L100.0500 ####[facility] [address] [place], [address] MCHC (RBC) [Mass/Vol] 32.5 g/dL Normal 32-36 [facility] Comment on above: Performed By: #### L 500.2500, L100.0500 ####[facility] [address] [place], [address] MCV (RBC) [Entitic vol] 95.0 fL Normal 81-99 [facility] Comment on above: Performed By: #### L 500.2500, L100.0500 ####[facility] [address] [place], [address] Platelet mean volume (Bld) [Entitic vol] 10.4 fL Normal 6.2-12.0 [facility] Comment on above: Performed By: #### L 500.2500, L100.0500 ####[facility] [address] [place], [address] Platelets (Bld) [#/Vol] 216 10*3/uL Normal 150-450 [facility] Comment on above: Performed By: #### L 500.2500, L100.0500 ####[facility] [address] [place], [address] RBC (Bld) [#/Vol] 3.98 10*6/uL Low 4.2-5.4 [facility] Comment on above: Performed By: #### L 500.2500, L100.0500 ####[facility] [address] [place], [address] RDW SD 48.2 fl High 35.1-43.9 [facility] Comment on above: Performed By: #### L 500.2500, L100.0500 ####[facility] [address] [place], [address] WBC (Bld) [#/Vol] 9.3 10*3/uL Normal 4.4-11.0 [facility] Comment on above: Performed By: #### L 500.2500, L100.0500 ####[facility] [address] [place], [address] Carbon dioxide, total [Moles /volume] in Central venous bloodOrdered By: Luis Antonio Navarro on 01-10-2025 CO2 [Moles/Vol] 19.9 mmol/L Low 21.0-32.0 [facility] Chloride assayOrdered By: Garry Navarro on 01-10-2025 Chloride [Moles/Vol] 112 mmol/L High 98-108 [facility] Erythrocyte distribution wid th ratioOrdered By: Luis Antonio Navarro on 01-10-2025 Erythrocyte distribution width (RBC) [Ratio] 13.7 % 11.6-14.6 [facility] Erythrocyte distribution wid th standard deviationOrdered By: Luis Antonio Navarro on 01-10-2025 Erythrocyte distribution width (RBC) [Ratio] 48.2 fl High 35.1-43.9 [facility] Glomerular filtration rate ( GFR) estimation/1.73 sq m using serum, plasma, or whole bOrdered By: Luis Antonio Navarro on 01-10-2025 GFR/1.73 sq M.predicted among non-blacks MDRD (S/P/Bld) [Vol rate/Area] 49 mL/min/{1.73_m2} Low >60 [facility] Comment on above: mL/min/1.73m2 CKD-EP I Creatinine Equation (2020) Hematocrit Auto (Bld) [Volum e fraction]Ordered By: Luis Antonio Navarro on 01-10-2025 Hematocrit (Bld) [Volume fraction] 37.8 % 37-47 [facility] Hemoglobin measurementOrdere d By: Luis Antonio Navarro on 01-10-2025 Hemoglobin (Bld) [Mass/Vol] 12.3 g/dL 12.0-15.0 [facility] MCV (mean corpuscular volume ) determinationOrdered By: Luis Antonio Navarro on 01-10-2025 MCV (RBC) [Entitic vol] 95.0 fL 81-99 [facility] Mean corpuscular hemoglobin (MCH) determinationOrdered By: Luis Antonio Navarro on 01-10-2025 MCH (RBC) [Entitic mass] 30.9 pg 27.0-32.0 [facility] Mean corpuscular hemoglobin concentration (MCHC) determinationOrdered By: Luis Antonio Navarro on 01-10-2025 MCHC (RBC) [Mass/Vol] 32.5 g/dL 32-36 [facility] Mean platelet volume determi nationOrdered By: Luis Antonio Navarro on 01-10-2025 Platelet mean volume (Bld) [Entitic vol] 10.4 fL 6.2-12.0 [facility] Platelet countOrdered By: Garry Navarro on 01-10-2025 Platelets (Bld) [#/Vol] 216 10*3/uL 150-450 [facility] Potassium measurement (mass/ volume)Ordered By: Luis Antonio Navarro on 01-10-2025 Potassium (Unsp spec) [Mass/Vol] 3.5 mmol/L 3.3-5.1 [facility] RBC Auto (Bld) [#/Vol]Ordere d By: Luis Antonio Navarro on 01-10-2025 RBC (Bld) [#/Vol] 3.98 10*6/uL Low 4.2-5.4 [facility] Serum creatinine measurement (mass/volume)Ordered By: Luis Antonio Navarro on 01-10-2025 Creatinine [Mass/Vol] 1.25 mg/dL High 0.70-1.20 [facility] Serum glucose measurement (m ass/volume)Ordered By: Luis Antonio Navarro on 01-10-2025 Glucose [Mass/Vol] 92 mg/dL 70-99 [facility] Serum or plasma calcium dane urement (mass/volume)Ordered By: Luis Antonio Navarro on 01-10-2025 Calcium [Mass/Vol] 8.9 mg/dL 7.6-11.0 [facility] Serum or plasma urea nitroge n measurement (mass/volume)Ordered By: Luis Antonio Navarro on 01-10-2025 Urea nitrogen [Mass/Vol] 12 mg/dL 4-19 [facility] Sodium levelOrdered By: Randy Navarro on 01-10-2025 Sodium [Moles/Vol] 144 mmol/L 133-145 [facility] Venous Duplex US - Bruce Extre mon 01-10-2025 Venous Duplex US - Bruce Extrem Normal [facility] Venous duplex ultrasound rep ortOrdered By: Wilfredo Shelby on 01-10-2025 US Vein [facility] Work Phone: White blood cell (WBC) count Ordered By: Luis Antonio Navarro on 01-10-2025 WBC (Bld) [#/Vol] 9.3 10*3/uL 4.4-11.0 [facility] Absolute lymphocyte countOrd ered By: Lauren Dane on 01-09-2025 Lymphocytes Auto (Unsp spec) [#/Vol] 2.69 10*3/uL 0.83-4.51 [facility] Absolute neutrophil countOrd ered By: on 01-09-2025 Neutrophils (Bld) [#/Vol] 6.7 10*3/uL 2.0-7.7 [facility] Automated lymphocyte count a s percentage of total leukocytesOrdered By: White on 01-09-2025 Lymphocytes/100 WBC Auto (Unsp spec) 25.4 % 19-41 [facility] Basophil percentageOrdered B y: Lauren Vela on 01-09-2025 Basophils/100 WBC (Bld) 0.2 % 0-1 [facility] Bedside Glucoseon 01-09-2025 FINGERSTICK GLU 96 mg/dL Normal 74-106 [facility] Comment on above: Result Comment: BJ GEMENT OF PATIENT CARE PER NURSING PROTOCOL Performed By: #### L 501.080 ####[facility] [address] [place], [address] FINGERSTICK GLU 115 mg/dL High 74-106 [facility] Comment on above: Result Comment: BJ GEMENT OF PATIENT CARE PER NURSING PROTOCOL Performed By: #### L 501.080 ####[facility] [address] [place], [address] FINGERSTICK GLU 96 mg/dL Normal 74-106 [facility] Comment on above: Result Comment: BJ GEMENT OF PATIENT CARE PER NURSING PROTOCOL Performed By: #### L 501.080 ####[facility] [address] [place], [address] FINGERSTICK GLU 110 mg/dL High 74-106 [facility] Comment on above: Result Comment: BJ GEMENT OF PATIENT CARE PER NURSING PROTOCOL Performed By: #### L 501.080 ####[facility] [address] [place], [address] FINGERSTICK GLU 108 mg/dL High 74-106 [facility] Comment on above: Result Comment: BJ GEMENT OF PATIENT CARE PER NURSING PROTOCOL Performed By: #### L 501.080 ####[facility] [address] [place], [address] Bilirubin, totalOrdered By: Lauren Vela on 01-09-2025 Bilirubin [Mass/Vol] 0.41 mg/dL 0.00-1.30 [facility] CBC W/Diff, Automatedon 12-17 Absolute Lymph 2.69 X10 3/uL Normal 0.83-4.51 [facility] Comment on above: Performed By: #### L 501.9985, L500.4050, L100.0100 ####[facility] [address] [place], [address] Absolute Neut 6.7 X10 3/uL Normal 2.0-7.7 [facility] Comment on above: Performed By: #### L 501.9985, L500.4050, L100.0100 ####[facility] [address] [place], [address] Basophils/100 WBC (Bld) 0.2 % Normal 0-1 [facility] Comment on above: Performed By: #### L 501.9985, L500.4050, L100.0100 ####[facility] [address] [place], [address] Eosinophils/100 WBC (Bld) 1.2 % Normal 0-5 [facility] Comment on above: Performed By: #### L 501.9985, L500.4050, L100.0100 ####[facility] [address] [place], [address] Erythrocyte distribution width (RBC) [Ratio] 13.9 % Normal 11.6-14.6 [facility] Comment on above: Performed By: #### L 501.9985, L500.4050, L100.0100 ####[facility] [address] [place], [address] Hematocrit (Bld) [Volume fraction] 39.9 % Normal 37-47 [facility] Comment on above: Performed By: #### L 501.9985, L500.4050, L100.0100 ####[facility] [address] [place], [address] Hemoglobin (Bld) [Mass/Vol] 12.9 g/dL Normal 12.0-15.0 [facility] Comment on above: Performed By: #### L 501.9985, L500.4050, L100.0100 ####[facility] [address] [place], [address] IG% 0.200 Normal 0.0-0.9 [facility] Comment on above: Result Comment: IG% - Immature Granulocytes (promyelocytes, myelocytes andmetamyelocytes) > 1% indicates that a LEFT SHIFT is Present. Performed By: #### L 501.9985, L500.4050, L100.0100 ####[facility] [address] [place], [address] Lymphocytes/100 WBC (Bld) 25.4 % Normal 19-41 [facility] Comment on above: Performed By: #### L 501.9985, L500.4050, L100.0100 ####[facility] [address] [place], [address] MCH (RBC) [Entitic mass] 30.6 pg Normal 27.0-32.0 [facility] Comment on above: Performed By: #### L 501.9985, L500.4050, L100.0100 ####[facility] [address] [place], [address] MCHC (RBC) [Mass/Vol] 32.3 g/dL Normal 32-36 [facility] Comment on above: Performed By: #### L 501.9985, L500.4050, L100.0100 ####[facility] [address] [place], [address] MCV (RBC) [Entitic vol] 94.8 fL Normal 81-99 [facility] Comment on above: Performed By: #### L 501.9985, L500.4050, L100.0100 ####[facility] [address] [place], [address] Monocytes/100 WBC (Bld) 9.5 % Normal 0-10 [facility] Comment on above: Performed By: #### L 501.9985, L500.4050, L100.0100 ####[facility] [address] [place], [address] Neutrophils/100 WBC (Bld) 63.5 % Normal 47-70 [facility] Comment on above: Performed By: #### L 501.9985, L500.4050, L100.0100 ####[facility] [address] [place], [address] Nucleated RBC (Bld) [#/Vol] 0 10*3/uL Normal 0-5 [facility] Comment on above: Performed By: #### L 501.9985, L500.4050, L100.0100 ####[facility] [address] [place], [address] Platelet mean volume (Bld) [Entitic vol] 10.3 fL Normal 6.2-12.0 [facility] Comment on above: Performed By: #### L 501.9985, L500.4050, L100.0100 ####[facility] [address] [place], [address] Platelets (Bld) [#/Vol] 223 10*3/uL Normal 150-450 [facility] Comment on above: Performed By: #### L 501.9985, L500.4050, L100.0100 ####[facility] [address] [place], [address] RBC (Bld) [#/Vol] 4.21 10*6/uL Normal 4.2-5.4 [facility] Comment on above: Performed By: #### L 501.9985, L500.4050, L100.0100 ####[facility] [address] [place], [address] RDW SD 48.2 fl High 35.1-43.9 [facility] Comment on above: Performed By: #### L 501.9985, L500.4050, L100.0100 ####[facility] [address] [place], [address] WBC (Bld) [#/Vol] 10.6 10*3/uL Normal 4.4-11.0 [facility] Comment on above: Performed By: #### L 501.9985, L500.4050, L100.0100 ####[facility] [address] [place], [address] Comprehensive Metabolic Prof ilon 01-09-2025 Albumin [Mass/Vol] 3.2 g/dL Low 3.4-4.8 [facility] Comment on above: Performed By: #### L 501.9985, L500.4050, L100.0100 ####[facility] [address] [place], [address] Albumin/Globulin [Mass ratio] 1.3 {ratio} Normal 0.9-2.4 [facility] Comment on above: Performed By: #### L 501.9985, L500.4050, L100.0100 ####[facility] [address] [place], [address] ALK PHOS 69 U/L Normal 35-104 [facility] Comment on above: Performed By: #### L 501.9985, L500.4050, L100.0100 ####[facility] [address] [place], [address] ALT [Catalytic activity/Vol] 9 U/L Normal <=34 [facility] Comment on above: Performed By: #### L 501.9985, L500.4050, L100.0100 ####[facility] [address] [place], [address] AST [Catalytic activity/Vol] 32 U/L Normal <=31 [facility] Comment on above: Performed By: #### L 501.9985, L500.4050, L100.0100 ####[facility] [address] [place], [address] Bilirubin [Mass/Vol] 0.41 mg/dL Normal 0.00-1.30 [facility] Comment on above: Performed By: #### L 501.9985, L500.4050, L100.0100 ####[facility] [address] [place], [address] BUN/CRE 9.3 RATIO Low 10-20 [facility] Comment on above: Performed By: #### L 501.9985, L500.4050, L100.0100 ####[facility] [address] [place], [address] Calcium [Mass/Vol] 8.2 mg/dL Normal 7.6-11.0 [facility] Comment on above: Performed By: #### L 501.9985, L500.4050, L100.0100 ####[facility] [address] [place], [address] Chloride [Moles/Vol] 114 mmol/L High 98-108 [facility] Comment on above: Performed By: #### L 501.9985, L500.4050, L100.0100 ####[facility] [address] [place], [address] CO2 [Moles/Vol] 19.4 mmol/L Low 21.0-32.0 [facility] Comment on above: Performed By: #### L 501.9985, L500.4050, L100.0100 ####[facility] [address] [place], [address] Creatinine [Mass/Vol] 1.36 mg/dL High 0.70-1.20 [facility] Comment on above: Performed By: #### L 501.9985, L500.4050, L100.0100 ####[facility] [address] [place], [address] ECRCL 51.12 ml/min Normal 50-250 [facility] Comment on above: Performed By: #### L 501.9985, L500.4050, L100.0100 ####[facility] [address] [place], [address] GAP 13 Normal 5-15 [facility] Comment on above: Performed By: #### L 501.9985, L500.4050, L100.0100 ####[facility] [address] [place], [address] GFR/1.73 sq M.predicted among non-blacks MDRD (S/P/Bld) [Vol rate/Area] 44 mL/min/{1.73_m2} Low >60 [facility] Comment on above: Result Comment: mL/m in/1.73m2 CKD-EPI Creatinine Equation (2020) Performed By: #### L 501.9985, L500.4050, L100.0100 ####[facility] [address] [place], [address] Globulin (S) [Mass/Vol] 2.5 g/dL Normal 2.2-4.2 [facility] Comment on above: Performed By: #### L 501.9985, L500.4050, L100.0100 ####[facility] [address] [place], [address] Glucose [Mass/Vol] 101 mg/dL High 70-99 [facility] Comment on above: Performed By: #### L 501.9985, L500.4050, L100.0100 ####[facility] [address] [place], [address] Potassium [Moles/Vol] 3.6 mmol/L Normal 3.3-5.1 [facility] Comment on above: Performed By: #### L 501.9985, L500.4050, L100.0100 ####[facility] [address] [place], [address] Sodium [Moles/Vol] 146 mmol/L High 133-145 [facility] Comment on above: Performed By: #### L 501.9985, L500.4050, L100.0100 ####[facility] [address] [place], [address] T PROT 5.8 g/dL Low 5.9-8.4 [facility] Comment on above: Performed By: #### L 501.9985, L500.4050, L100.0100 ####[facility] [address] [place], [address] Urea nitrogen [Mass/Vol] 13 mg/dL Normal 4-19 [facility] Comment on above: Performed By: #### L 501.9985, L500.4050, L100.0100 ####[facility] [address] [place], [address] Consultation - Intensiviston 01-09-2025 Consultation - Commercial Designer Normal [facility] Electrocardiogram reportOrde red By: Az Engle on 01-09-2025 EKG study [facility] Other Eosinophil percentageOrdered By: Lauren Vela on 01-09-2025 Eosinophils/100 WBC (Bld) 1.2 % 0-5 [facility] Hemoglobin A1con 01-09-2025 HbA1c (Bld) [Mass fraction] 6.0 % High <=5.6 [facility] Comment on above: Result Comment: Norm al < 5.7 % Prediabetic 5.7 - 6.4 % Diabetic >or= 6.5 % Please note range changes. Performed By: #### L 501.9985, L500.4050, L100.0100 ####[facility] [address] [place], [address] Hemoglobin A1c percentageOrd ered By: Lauren Vela on 01-09-2025 HbA1c (Bld) [Mass fraction] 6.0 % High <5.7 [facility] Comment on above: Normal < 5.7 % Predi abetic 5.7 - 6.4 % Diabetic >or= 6.5 % Please note range changes. Immature granulocytes/100 WB C Auto (Bld)Ordered By: Lauren Dane on 01-09-2025 Immature granulocytes/100 WBC (Bld) 0.200 % 0.0-0.9 [facility] Comment on above: IG% - Immature Granu locytes (promyelocytes, myelocytes and metamyelocytes) > 1% indicates that a LEFT SHIFT is Present. Kidney and Bladderon 025 Kidney and Bladder Normal [facility] Laboratory - Chemistry and C hemistry - challengeOrdered By: Lauren Vela on 01-09-2025 AST [Catalytic activity/Vol] 32 U/L <32 [facility] Monocyte percentageOrdered B y: Dane on 01-09-2025 Monocytes/100 WBC (Bld) 9.5 % 0-10 [facility] Neutrophil percentageOrdered By: on 01-09-2025 Neutrophils/100 WBC (Bld) 63.5 % 47-70 [facility] No Panel InformationOrdered By: Lauren Dane on 01-09-2025 32 U/L <32 [facility] Nucleated red blood cell per centageOrdered By: Lauren Dane on 01-09-2025 Nucleated RBC/100 WBC (Bld) [Ratio] 0 % 0-5 [facility] Serum globulin measurementOr dered By: Lauren Dane on 01-09-2025 Globulin (S) [Mass/Vol] 2.5 g/dL 2.2-4.2 [facility] Serum or plasma alanine obregon otransferase (ALT) measurementOrdered By: Dane on 01-09-2025 ALT [Catalytic activity/Vol] 9 U/L <35 [facility] Serum or plasma albumin dane urement (mass/volume)Ordered By: Lauren Vela on 01-09-2025 Albumin [Mass/Vol] 3.2 g/dL Low 3.4-4.8 [facility] Serum or plasma albumin/glob ulin mass ratioOrdered By: [facility] on 01-09-2025 Albumin/Globulin [Mass ratio] 1.3 {ratio} 0.9-2.4 [facility] Serum or plasma alkaline ruddy sphatase measurementOrdered By: [facility] on 01-09-2025 ALP [Catalytic activity/Vol] 69 U/L 35-104 [facility] Total proteinOrdered By: Aut n White on 01-09-2025 Protein [Mass/Vol] 5.8 g/dL Low 5.9-8.4 [facility] Urine Cultureon 01-09-2025 URC Culture exhibits no growth. Normal [facility] Comment on above: Performed By: #### M 100.2200 ####[facility] [address] [place], [place], [id number] 12 Lead EKGon 01-08-2025 12 Lead EKG Normal [facility] Absolute lymphocyte countOrd ered By: Issa Chapin on 01-08-2025 Lymphocytes Auto (Unsp spec) [#/Vol] 1.55 10*3/uL 0.83-4.51 [facility] Activated partial thrombopla stin time (aPTT) in platelet poor plasma by coagulation aOrdered By: Issa Chapin on 01-08-2025 aPTT Coag (PPP) [Time] 27.1 s 24.1-36.2 [facility] Alcohol, Blood (Medical)-Ser formerly [facility] 01-08-2025 SERUM ETOH < 10.1 Normal <=10.0 [facility] Comment on above: Result Comment: This test is for medical purposes only. The legaldefinition of intoxication varies according to local law. Performed By: #### L 505.5000, L501.9100, L300.3900, L300.4310, L500.4050, L100.0100, L503.6005, L501.2450 ####[facility] [address] [place], [place], [address] Amphetamine detection with 1 000 ng/mL as cutoffOrdered By: Issa Chapin on 01-08-2025 Amphetamines Screen method >1000 ng/mL Ql (U) Negative < 200 ng/mL [facility] Anion gap in Serum or Plasma Ordered By: Issa Chapin on 01-08-2025 Anion gap [Moles/Vol] 16 mmol/L High 5-15 [facility] Automated lymphocyte count a s percentage of total leukocytesOrdered By: Issa Chapin on 01-08-2025 Lymphocytes/100 WBC Auto (Unsp spec) 15.8 % Low 19-41 [facility] BUN/creatinine ratioOrdered By: Issa Chapin on 01-08-2025 Urea nitrogen/Creatinine [Mass ratio] 9.2 mg/mg Low 10-20 [facility] Basophil percentageOrdered B y: Issa Chapin on 01-08-2025 Basophils/100 WBC (Bld) 0.2 % 0-1 [facility] Bilirubin Test strip Ql (U)O rdered By: Issa Chapin on 01-08-2025 Bilirubin Ql (U) 1 mg/dL High Negative [facility] Comment on above: COLOR OF URINE MAY A FFECT DIPSTICK RESULTS. Bilirubin, totalOrdered By: Issa Chapin on 01-08-2025 Bilirubin [Mass/Vol] 0.39 mg/dL 0.00-1.30 [facility] Blood Gases by [facility] Base excess Calc (Bld) [Moles/Vol] -3 mmol/L Low -2 to +2 [facility] Comment on above: Order Comment: Resul ts manually entered by Amber and verified by [facility]01/08/25 at 1747 Performed By: #### L 9000.0800 ####[facility] [address] [place], [place], [id number] Blood Gas Type ART Normal [facility] Comment on above: Order Comment: Resul ts manually entered by mAber and verified by [facility]01/08/25 at 1747 Performed By: #### L 9000.0800 ####[facility] [address] [place], [place], [id number] CO2 [Moles/Vol] 22 mmol/L Normal [facility] Comment on above: Order Comment: Resul ts manually entered by Amber and verified by [facility]01/08/25 at 1747 Performed By: #### L 9000.0800 ####[facility] [address] [place], [address] HCO3 (Bld) [Moles/Vol] 21.1 mmol/L Low 22-26 [facility] Comment on above: Order Comment: Resul ts manually entered by Amber and verified by [facility]01/08/25 at 1747 Performed By: #### L 9000.0800 ####[facility] [address] [place], [address] LPM 3.0 Normal [facility] Comment on above: Order Comment: Resul ts manually entered by Amber and verified by [facility]01/08/25 at 1747 Performed By: #### L 9000.0800 ####[facility] [address] [place], [address] pCO2 29.6 mmHg Low 35-45 [facility] Comment on above: Order Comment: Resul ts manually entered by Amber and verified by [facility]01/08/25 at 1747 Performed By: #### L 9000.0800 ####[facility] [address] [place], [address] pH (Bld) 7.46 [pH] High 7.35-7.45 [facility] Comment on above: Order Comment: Resul ts manually entered by Amber and verified by [facility]01/08/25 at 1747 Performed By: #### L 9000.0800 ####[facility] [address] [place], [address] PO2 55 mmHG Low 75-100 [facility] Comment on above: Order Comment: Resul ts manually entered by Amber and verified by [facility]01/08/25 at 1747 Performed By: #### L 9000.0800 ####[facility] [address] [place], [address] SITE R BRACHIAL Normal [facility] Comment on above: Order Comment: Resul ts manually entered by Amber and [facility]01/08/25 at 1747 Performed By: #### L 9000.0800 ####[facility] [address] [place], [address] SO2 91 Low 95-99 [facility] Comment on above: Order Comment: Resul ts manually entered by Amber and verified by [facility]01/08/25 at 1747 Performed By: #### L 9000.0800 ####[facility] [address] [place], [address] Blood base excess determinat ionOrdered By: Issa Chapin on 01-08-2025 Base excess Calc (BldV) [Moles/Vol] -3 mmol/L Low -2-2 [facility] Blood bicarbonate measuremen tOrdered By: Issa Chapin on 01-08-2025 HCO3 (Bld) [Moles/Vol] 21.1 mmol/L Low 22-26 [facility] Blood cultureOrdered By: Issa Chapin on 01-08-2025 Bacteria identified Cx Nom (Bld) No growth in 5 days. [facility] Brain/Head without Contrasto n 01-08-2025 Brain/Head without Contrast Normal [facility] CBC W/Diff, Automatedon 12-17 Absolute Lymph 1.55 X10 3/uL Normal 0.83-4.51 [facility] Comment on above: Performed By: #### L 505.5000, L501.9100, L300.3900, L300.4310, L500.4050, L100.0100, L503.6005, L501.2450 ####[facility] [address] [place], [address] Absolute Neut 7.4 X10 3/uL Normal 2.0-7.7 [facility] Comment on above: Performed By: #### L 505.5000, L501.9100, L300.3900, L300.4310, L500.4050, L100.0100, L503.6005, L501.2450 ####[facility] [address] [place], [address] Basophils/100 WBC (Bld) 0.2 % Normal 0-1 [facility] Comment on above: Performed By: #### L 505.5000, L501.9100, L300.3900, L300.4310, L500.4050, L100.0100, L503.6005, L501.2450 ####[facility] [address] [place], [address] Eosinophils/100 WBC (Bld) 1.3 % Normal 0-5 [facility] Comment on above: Performed By: #### L 505.5000, L501.9100, L300.3900, L300.4310, L500.4050, L100.0100, L503.6005, L501.2450 ####[facility] [address] [place], [address] Erythrocyte distribution width (RBC) [Ratio] 13.7 % Normal 11.6-14.6 [facility] Comment on above: Performed By: #### L 505.5000, L501.9100, L300.3900, L300.4310, L500.4050, L100.0100, L503.6005, L501.2450 ####[facility] [address] [place], [address] Hematocrit (Bld) [Volume fraction] 41.1 % Normal 37-47 [facility] Comment on above: Performed By: #### L 505.5000, L501.9100, L300.3900, L300.4310, L500.4050, L100.0100, L503.6005, L501.2450 ####[facility] [address] [place], [address] Hemoglobin (Bld) [Mass/Vol] 13.5 g/dL Normal 12.0-15.0 [facility] Comment on above: Performed By: #### L 505.5000, L501.9100, L300.3900, L300.4310, L500.4050, L100.0100, L503.6005, L501.2450 ####[facility] [address] [place], [address] IG% 0.100 Normal 0.0-0.9 [facility] Comment on above: Result Comment: IG% - Immature Granulocytes (promyelocytes, myelocytes andmetamyelocytes) > 1% indicates that a LEFT SHIFT is Present. Performed By: #### L 505.5000, L501.9100, L300.3900, L300.4310, L500.4050, L100.0100, L503.6005, L501.2450 ####[facility] [address] [place], [address] Lymphocytes/100 WBC (Bld) 15.8 % Low 19-41 [facility] Comment on above: Performed By: #### L 505.5000, L501.9100, L300.3900, L300.4310, L500.4050, L100.0100, L503.6005, L501.2450 ####[facility] [address] [place], [address] MCH (RBC) [Entitic mass] 30.5 pg Normal 27.0-32.0 [facility] Comment on above: Performed By: #### L 505.5000, L501.9100, L300.3900, L300.4310, L500.4050, L100.0100, L503.6005, L501.2450 ####[facility] [address] [place], [address] MCHC (RBC) [Mass/Vol] 32.8 g/dL Normal 32-36 [facility] Comment on above: Performed By: #### L 505.5000, L501.9100, L300.3900, L300.4310, L500.4050, L100.0100, L503.6005, L501.2450 ####[facility] [address] [place], [address] MCV (RBC) [Entitic vol] 93.0 fL Normal 81-99 [facility] Comment on above: Performed By: #### L 505.5000, L501.9100, L300.3900, L300.4310, L500.4050, L100.0100, L503.6005, L501.2450 ####[facility] [address] [place], [address] Monocytes/100 WBC (Bld) 6.6 % Normal 0-10 [facility] Comment on above: Performed By: #### L 505.5000, L501.9100, L300.3900, L300.4310, L500.4050, L100.0100, L503.6005, L501.2450 ####[facility] [address] [place], [address] Neutrophils/100 WBC (Bld) 76.0 % High 47-70 [facility] Comment on above: Performed By: #### L 505.5000, L501.9100, L300.3900, L300.4310, L500.4050, L100.0100, L503.6005, L501.2450 ####[facility] [address] [place], [address] Nucleated RBC (Bld) [#/Vol] 0 10*3/uL Normal 0-5 [facility] Comment on above: Performed By: #### L 505.5000, L501.9100, L300.3900, L300.4310, L500.4050, L100.0100, L503.6005, L501.2450 ####[facility] [address] [place], [address] Platelet mean volume (Bld) [Entitic vol] 10.5 fL Normal 6.2-12.0 [facility] Comment on above: Performed By: #### L 505.5000, L501.9100, L300.3900, L300.4310, L500.4050, L100.0100, L503.6005, L501.2450 ####[facility] [address] [place], [address] Platelets (Bld) [#/Vol] 245 10*3/uL Normal 150-450 [facility] Comment on above: Performed By: #### L 505.5000, L501.9100, L300.3900, L300.4310, L500.4050, L100.0100, L503.6005, L501.2450 ####[facility] [address] [place], [address] RBC (Bld) [#/Vol] 4.42 10*6/uL Normal 4.2-5.4 [facility] Comment on above: Performed By: #### L 505.5000, L501.9100, L300.3900, L300.4310, L500.4050, L100.0100, L503.6005, L501.2450 ####[facility] [address] [place], [address] RDW SD 46.9 fl High 35.1-43.9 [facility] Comment on above: Performed By: #### L 505.5000, L501.9100, L300.3900, L300.4310, L500.4050, L100.0100, L503.6005, L501.2450 ####[facility] [address] [place], [address] WBC (Bld) [#/Vol] 9.8 10*3/uL Normal 4.4-11.0 [facility] Comment on above: Performed By: #### L 505.5000, L501.9100, L300.3900, L300.4310, L500.4050, L100.0100, L503.6005, L501.2450 ####[facility] [address] [place], [place], [id number] Carbon dioxide, total [Moles /volume] in Central venous bloodOrdered By: Issa Chapin on 01-08-2025 CO2 [Moles/Vol] 18.9 mmol/L Low 21.0-32.0 [facility] Chest 1 View (Portable)on Chest 1 View (Portable) Normal [facility] Chloride assayOrdered By: Sagar Chapin on 01-08-2025 Chloride [Moles/Vol] 105 mmol/L 98-108 [facility] Comprehensive Metabolic Prof ilon 01-08-2025 Albumin [Mass/Vol] 3.7 g/dL Normal 3.4-4.8 [facility] Comment on above: Performed By: #### L 505.5000, L501.9100, L300.3900, L300.4310, L500.4050, L100.0100, L503.6005, L501.2450 ####[facility] [address] [place], [address] Albumin/Globulin [Mass ratio] 1.4 {ratio} Normal 0.9-2.4 [facility] Comment on above: Performed By: #### L 505.5000, L501.9100, L300.3900, L300.4310, L500.4050, L100.0100, L503.6005, L501.2450 ####[facility] [address] [place], [place], [phone] ALK PHOS 77 U/L Normal 35-104 [facility] Comment on above: Performed By: #### L 505.5000, L501.9100, L300.3900, L300.4310, L500.4050, L100.0100, L503.6005, L501.2450 ####[facility] [address] [place], [address] ALT [Catalytic activity/Vol] 8 U/L Normal <=34 [facility] Comment on above: Performed By: #### L 505.5000, L501.9100, L300.3900, L300.4310, L500.4050, L100.0100, L503.6005, L501.2450 ####[facility] [address] [place], [address] AST [Catalytic activity/Vol] 18 U/L Normal <=31 [facility] Comment on above: Performed By: #### L 505.5000, L501.9100, L300.3900, L300.4310, L500.4050, L100.0100, L503.6005, L501.2450 ####[facility] [address] [place], [address] Bilirubin [Mass/Vol] 0.39 mg/dL Normal 0.00-1.30 [facility] Comment on above: Performed By: #### L 505.5000, L501.9100, L300.3900, L300.4310, L500.4050, L100.0100, L503.6005, L501.2450 ####[facility] [address] [place], [address] BUN/CRE 9.2 RATIO Low 10-20 [facility] Comment on above: Performed By: #### L 505.5000, L501.9100, L300.3900, L300.4310, L500.4050, L100.0100, L503.6005, L501.2450 ####[facility] [address] [place], [address] Calcium [Mass/Vol] 8.7 mg/dL Normal 7.6-11.0 [facility] Comment on above: Performed By: #### L 505.5000, L501.9100, L300.3900, L300.4310, L500.4050, L100.0100, L503.6005, L501.2450 ####[facility] [address] [place], [address] Chloride [Moles/Vol] 105 mmol/L Normal 98-108 [facility] Comment on above: Performed By: #### L 505.5000, L501.9100, L300.3900, L300.4310, L500.4050, L100.0100, L503.6005, L501.2450 ####[facility] [address] [place], [address] CO2 [Moles/Vol] 18.9 mmol/L Low 21.0-32.0 [facility] Comment on above: Performed By: #### L 505.5000, L501.9100, L300.3900, L300.4310, L500.4050, L100.0100, L503.6005, L501.2450 ####[facility] [address] [place], [address] Creatinine [Mass/Vol] 1.82 mg/dL High 0.70-1.20 [facility] Comment on above: Performed By: #### L 505.5000, L501.9100, L300.3900, L300.4310, L500.4050, L100.0100, L503.6005, L501.2450 ####[facility] [address] [place], [address] ECRCL 38.69 ml/min Low 50-250 [facility] Comment on above: Performed By: #### L 505.5000, L501.9100, L300.3900, L300.4310, L500.4050, L100.0100, L503.6005, L501.2450 ####[facility] [address] [place], [address] GAP 16 High 5-15 [facility] Comment on above: Performed By: #### L 505.5000, L501.9100, L300.3900, L300.4310, L500.4050, L100.0100, L503.6005, L501.2450 ####[facility] [address] [place], [address] GFR/1.73 sq M.predicted among non-blacks MDRD (S/P/Bld) [Vol rate/Area] 31 mL/min/{1.73_m2} Low >60 [facility] Comment on above: Result Comment: mL/m in/1.73m2 CKD-EPI Creatinine Equation (2020) Performed By: #### L 505.5000, L501.9100, L300.3900, L300.4310, L500.4050, L100.0100, L503.6005, L501.2450 ####[facility] [address] [place], [address] Globulin (S) [Mass/Vol] 2.7 g/dL Normal 2.2-4.2 [facility] Comment on above: Performed By: #### L 505.5000, L501.9100, L300.3900, L300.4310, L500.4050, L100.0100, L503.6005, L501.2450 ####[facility] [address] [place], [address] Glucose [Mass/Vol] 138 mg/dL High 70-99 [facility] Comment on above: Performed By: #### L 505.5000, L501.9100, L300.3900, L300.4310, L500.4050, L100.0100, L503.6005, L501.2450 ####[facility] [address] [place], [place], [id number] Potassium [Moles/Vol] 3.4 mmol/L Normal 3.3-5.1 [facility] Comment on above: Performed By: #### L 505.5000, L501.9100, L300.3900, L300.4310, L500.4050, L100.0100, L503.6005, L501.2450 ####[facility] [address] [place], [address] Sodium [Moles/Vol] 140 mmol/L Normal 133-145 [facility] Comment on above: Performed By: #### L 505.5000, L501.9100, L300.3900, L300.4310, L500.4050, L100.0100, L503.6005, L501.2450 ####[facility] [address] [place], [place], [id number] T PROT 6.4 g/dL Normal 5.9-8.4 [facility] Comment on above: Performed By: #### L 505.5000, L501.9100, L300.3900, L300.4310, L500.4050, L100.0100, L503.6005, L501.2450 ####[facility] [address] [place], [place], [phone] Urea nitrogen [Mass/Vol] 17 mg/dL Normal 4-19 [facility] Comment on above: Performed By: #### L 505.5000, L501.9100, L300.3900, L300.4310, L500.4050, L100.0100, L503.6005, L501.2450 ####[facility] [address] [place], [place], [phone] Emergency Department Summary on 01-08-2025 Emergency Department Summary Normal [facility] Eosinophil percentageOrdered By: Issa Chapin on 01-08-2025 Eosinophils/100 WBC (Bld) 1.3 % 0-5 [facility] Erythrocyte distribution wid th ratioOrdered By: [facility] on 01-08-2025 Erythrocyte distribution width (RBC) [Ratio] 13.7 % 11.6-14.6 [facility] Erythrocyte distribution wid th standard deviationOrdered By: Issa Chapin on 01-08-2025 Erythrocyte distribution width (RBC) [Ratio] 46.9 fl High 35.1-43.9 [facility] Glomerular filtration rate ( GFR) estimation/1.73 sq m using serum, plasma, or whole bOrdered By: Issa Chapin on 01-08-2025 GFR/1.73 sq M.predicted among non-blacks MDRD (S/P/Bld) [Vol rate/Area] 31 mL/min/{1.73_m2} Low >60 [facility] H AND P Exam - Hospitaliston 01-08-2025 H&P Exam - Hospitalist Normal [facility] Hematocrit Auto (Bld) [Volum e fraction]Ordered By: [facility] on 01-08-2025 Hematocrit (Bld) [Volume fraction] 41.1 % 37-47 [facility] Hemoglobin measurementOrdere d By: [facility] on 01-08-2025 Hemoglobin (Bld) [Mass/Vol] 13.5 g/dL 12.0-15.0 [facility] Immature granulocytes/100 WB C Auto (Bld)Ordered By: Issa Chapin on 01-08-2025 Immature granulocytes/100 WBC (Bld) 0.100 % 0.0-0.9 [facility] International normalized rat io (INR) calculationOrdered By: [facility] on 01-08-2025 INR Coag (Bld) [Relative time] 1.1 {INR} [facility] Ketones Test strip Ql (U)Ord ered By: [facility] on 01-08-2025 Ketones Ql (U) Negative Negative [facility] Lactic Acidon 01-08-2025 Lactate [Moles/Vol] mmol/L Normal 0.0-2.0 [facility] Comment on above: Performed By: #### L 503.6001 ####[facility] [address] [place], [place], [phone] Lactate [Moles/Vol] 3.9 mmol/L Invalid Interpretation Code 0.0-2.0 [facility] Comment on above: Order Comment: Y Result Comment: Crit ical Result(s) Called ZOILA at: 1759 by:NIKOLAY??Results read back by same. Performed By: #### L 505.5000, L501.9100, L300.3900, L300.4310, L500.4050, L100.0100, L503.6005, L501.2450 ####[facility] [address] [place], [place], [phone] Lactic acid measurementOrder ed By: Issa Chapin on 01-08-2025 Lactate [Moles/Vol] mmol/L 0.0-2.0 [facility] Lipaseon 01-08-2025 Lipase [Catalytic activity/Vol] 22 U/L Normal - [facility] Comment on above: Result Comment: Mahin yoon note:LIPASE revised reference range effective 22.New Lipase methodology. Expected to produce lower valuesthan the previous assay method.NEW Reference Range: 13 - 75 U/L Performed By: #### L 505.5000, L501.9100, L300.3900, L300.4310, L500.4050, L100.0100, L503.6005, L501.2450 ####[facility] [address] [place], [place], [phone] Lipase measurementOrdered By : Issa Chapin on 01-08-2025 Lipase [Catalytic activity/Vol] 22 U/L - [facility] Comment on above: Please note:LIPASE r evised reference range effective 22. New Lipase methodology. Expected to produce lower values than the previous assay method. NEW Reference Range: 13 - 75 U/L MCV (mean corpuscular volume ) determinationOrdered By: Issa Chapin on 01-08-2025 MCV (RBC) [Entitic vol] 93.0 fL 81-99 [facility] Mean corpuscular hemoglobin (MCH) determinationOrdered By: Issa Chapin on 01-08-2025 MCH (RBC) [Entitic mass] 30.5 pg 27.0-32.0 [facility] Measurement, pHOrdered By: Rony Raineso on 01-08-2025 pH (Unsp spec) 7.46 [pH] High 7.35-7.45 [facility] Microscopic analysis of urin e for red blood cells (RBC)Ordered By: Issa Chapin on 01-08-2025 Microscopic analysis of urine for red blood cells (RBC) 0-5 SEEN /hpf 0-5 [facility] Monocyte percentageOrdered B y: Issa Chapin on 01-08-2025 Monocytes/100 WBC (Bld) 6.6 % 0-10 [facility] Mucus LM Ql (Urine sed)Order ed By: Issa Chapin on 01-08-2025 Mucus Ql (Urine sed) 0 SEEN /hpf [facility] Neutrophil percentageOrdered By: Issa Chapin on 01-08-2025 Neutrophils/100 WBC (Bld) 76.0 % High 47-70 [facility] Nitrite Test strip Ql (U)Ord ered By: Issa Chapin on 01-08-2025 Nitrite Ql (U) Negative Negative [facility] No Panel InformationOrdered By: Issa Chapin on 01-08-2025 Blood Gas Liter Flow 3.0 [facility] Blood Gas Sample Site R [facility] Blood Gas Specimen Type ART [facility] ART [facility] R [facility] 3.0 [facility] Urine Buprenorphine Qualitative Negative < 200 ng/mL [facility] Urine Oxycodone Screen Negative < 100 ng/mL [facility] 18 U/L <32 [facility] Negative < 200 ng/mL [facility] Partial Thromboplast Timeon 01-08-2025 aPTT Coag (Bld) [Time] 27.1 s Normal 24.1-36.2 [facility] Comment on above: Performed By: #### L 505.5000, L501.9100, L300.3900, L300.4310, L500.4050, L100.0100, L503.6005, L501.2450 ####[facility] [address] [place], [place], [phone] Platelet countOrdered By: Sagar kirit Chapin on 01-08-2025 Platelets (Bld) [#/Vol] 245 10*3/uL 150-450 [facility] Potassium measurement (mass/ volume)Ordered By: Issa Chapin on 01-08-2025 Potassium (Unsp spec) [Mass/Vol] 3.4 mmol/L 3.3-5.1 [facility] Protein Test strip Ql (U)Ord ered By: Issa Chapin on 01-08-2025 Protein Ql (U) 30 mg/dl High Negative [facility] Prothrombin Time w/INRon INR Coag (PPP) [Relative time] 1.1 {INR} Normal [facility] Comment on above: Performed By: #### L 505.5000, L501.9100, L300.3900, L300.4310, L500.4050, L100.0100, L503.6005, L501.2450 ####[facility] [address] [place], [place], [phone] PT Coag (PPP) [Time] 14.3 s Normal 11.7-14.9 [facility] Comment on above: Performed By: #### L 505.5000, L501.9100, L300.3900, L300.4310, L500.4050, L100.0100, L503.6005, L501.2450 ####[facility] [address] [place], [place], [phone] Prothrombin timeOrdered By: Issa Chapin on 01-08-2025 PT Coag (PPP) [Time] 14.3 s 11.7-14.9 [facility] Quantitative urine opiates m easurementOrdered By: Issa Chapin on 01-08-2025 Opiates Ql (U) Negative < 300 ng/mL [facility] RBC Auto (Bld) [#/Vol]Ordere d By: Issa Chapin on 01-08-2025 RBC (Bld) [#/Vol] 4.42 10*6/uL 4.2-5.4 [facility] Screening urine fentanyl tito surementOrdered By: Issa Chapin on 01-08-2025 fentaNYL Screen Ql (U) Negative [facility] Serum creatinine measurement (mass/volume)Ordered By: Issa Chapin on 01-08-2025 Creatinine [Mass/Vol] 1.82 mg/dL High 0.70-1.20 [facility] Serum globulin measurementOr dered By: Issa Chapin on 01-08-2025 Globulin (S) [Mass/Vol] 2.7 g/dL 2.2-4.2 [facility] Serum glucose measurement (m ass/volume)Ordered By: Issa Chapin on 01-08-2025 Glucose [Mass/Vol] 138 mg/dL High 70-99 [facility] Serum or plasma alanine obregon otransferase (ALT) measurementOrdered By: Issakirit Chapin on 01-08-2025 ALT [Catalytic activity/Vol] 8 U/L <35 [facility] Serum or plasma albumin dane urement (mass/volume)Ordered By: Issa Chapin on 01-08-2025 Albumin [Mass/Vol] 3.7 g/dL 3.4-4.8 [facility] Serum or plasma albumin/glob ulin mass ratioOrdered By: Issakirit Chapin on 01-08-2025 Albumin/Globulin [Mass ratio] 1.4 {ratio} 0.9-2.4 [facility] Serum or plasma alkaline ruddy sphatase measurementOrdered By: Issakirit Chapin on 01-08-2025 ALP [Catalytic activity/Vol] 77 U/L 35-104 [facility] Serum or plasma calcium dane urement (mass/volume)Ordered By: Issakirit Chapin on 01-08-2025 Calcium [Mass/Vol] 8.7 mg/dL 7.6-11.0 [facility] Serum or plasma ethanol dane urement (mass/volume)Ordered By: Issakirit Chapin on 01-08-2025 Ethanol [Mass/Vol] mg/dL <10.1 [facility] Comment on above: This test is for med ical purposes only. The legal definition of intoxication varies according to local law. Serum or plasma urea nitroge n measurement (mass/volume)Ordered By: Issa Chapin on 01-08-2025 Urea nitrogen [Mass/Vol] 17 mg/dL 4-19 [facility] Sodium levelOrdered By: Issa Chapin on 01-08-2025 Sodium [Moles/Vol] 140 mmol/L 133-145 [facility] Squamous epithelial cells de tection in urine sediment by light microscopyOrdered By: Issa Chapin on 01-08-2025 Epithelial cells.squamous LM Ql (Urine sed) 5-10 SEEN /hpf 5-10 [facility] Total carbon dioxide measure mentOrdered By: Issa Chapin on 01-08-2025 CO2 [Moles/Vol] 22 mmol/L [facility] Total proteinOrdered By: Issa Chapin on 01-08-2025 Protein [Mass/Vol] 6.4 g/dL 5.9-8.4 [facility] Transitional cells detection in urine sediment by light microscopyOrdered By: Issa Chapin on 01-08-2025 Transitional cells LM Ql (Urine sed) 0-5 SEEN /hpf 0-5 [facility] Urinalysis, Completeon 01-08 RBC 0-5 SEEN Normal 0-5 [facility] Comment on above: Order Comment: JASON TER SPECIMEN Performed By: #### L 400.0001 ####[facility] [address] [place], [place], [phone] BACTERIA 2+ /hpf Normal None Seen [facility] Comment on above: Order Comment: JASON TER SPECIMEN Performed By: #### L 400.0001 ####[facility] [address] [place], [place], [phone] EPI,TRANSITION 0-5 SEEN Normal 0-5 [facility] Comment on above: Order Comment: JASON TER SPECIMEN Performed By: #### L 400.0001 ####[facility] [address] [place], [place], [phone] EPI,SQUAMOUS 5-10 SEEN Normal 5-10 [facility] Comment on above: Order Comment: JASON TER SPECIMEN Performed By: #### L 400.0001 ####[facility] [address] [place], [address] WBC 25-50 SEEN Normal 0-5 [facility] Comment on above: Order Comment: JASON TER SPECIMEN Performed By: #### L 400.0001 ####[facility] [address] [place], [address] Mucus Ql (Urine sed) 0 SEEN Normal [facility] Comment on above: Order Comment: JASON TER SPECIMEN Performed By: #### L 400.0001 ####[facility] [address] [place], [address] Urine Drug Screen (VISTA)on 01-08-2025 AMPHETAMINES Negative Normal <1000 ng/mL [facility] Comment on above: Performed By: #### L 505.5000, L501.9100, L300.3900, L300.4310, L500.4050, L100.0100, L503.6005, L501.2450 ####[facility] [address] [place], [place], [phone](946) BARBITIURATES Negative Normal < 200 ng/mL [facility] Comment on above: Performed By: #### L 505.5000, L501.9100, L300.3900, L300.4310, L500.4050, L100.0100, L503.6005, L501.2450 ####[facility] [address] [place], [address] BENZODIAZIPINE Positive Normal < 200 ng/mL [facility] Comment on above: Result Comment: If c onfirmation testing is needed, a separate order will berequired to send out testing to the reference laboratory. Performed By: #### L 505.5000, L501.9100, L300.3900, L300.4310, L500.4050, L100.0100, L503.6005, L501.2450 ####[facility] [address] [place], [address] BUP Ur Drug Scr Negative Normal < 200 ng/mL [facility] Comment on above: Performed By: #### L 505.5000, L501.9100, L300.3900, L300.4310, L500.4050, L100.0100, L503.6005, L501.2450 ####[facility] [address] [place], [place], [phone] COCAINE Negative Normal < 300 ng/mL [facility] Comment on above: Performed By: #### L 505.5000, L501.9100, L300.3900, L300.4310, L500.4050, L100.0100, L503.6005, L501.2450 ####[facility] [address] [place], [address] Fentanyl Negative Normal [facility] Comment on above: Performed By: #### L 505.5000, L501.9100, L300.3900, L300.4310, L500.4050, L100.0100, L503.6005, L501.2450 ####[facility] [address] [place], [address] METHADONE Negative Normal < 300 ng/mL [facility] Comment on above: Performed By: #### L 505.5000, L501.9100, L300.3900, L300.4310, L500.4050, L100.0100, L503.6005, L501.2450 ####[facility] [address] [place], [address] OPIATES Negative Normal < 300 ng/mL [facility] Comment on above: Performed By: #### L 505.5000, L501.9100, L300.3900, L300.4310, L500.4050, L100.0100, L503.6005, L501.2450 ####[facility] [address] [place], [address] OXYCODONE Negative Normal < 100 ng/mL [facility] Comment on above: Performed By: #### L 505.5000, L501.9100, L300.3900, L300.4310, L500.4050, L100.0100, L503.6005, L501.2450 ####[facility] [address] [place], [place], [phone] PCP Negative Normal < 25 ng/mL [facility] Comment on above: Performed By: #### L 505.5000, L501.9100, L300.3900, L300.4310, L500.4050, L100.0100, L503.6005, L501.2450 ####[facility] [address] [place], [place], [phone] THC Negative Normal < 50 ng/mL [facility] Comment on above: Performed By: #### L 505.5000, L501.9100, L300.3900, L300.4310, L500.4050, L100.0100, L503.6005, L501.2450 ####[facility] [address] [place], [place], [phone] Urine benzodiazepine levelOr dered By: Issa Chapin on 01-08-2025 Benzodiazepines Ql (U) Positive < 200 ng/mL [facility] Comment on above: If confirmation test ing is needed, a separate order will be required to send out testing to the reference laboratory. Urine clarityOrdered By: Issa Chapin on 01-08-2025 Clarity (U) Sl. Cloudy Clear [facility] Urine cocaine levelOrdered B y: Issa Chapin on 01-08-2025 Cocaine Ql (U) Negative < 300 ng/mL [facility] Urine color determinationOrd ered By: Issa Chapin on 01-08-2025 Color (U) Yellow Yellow [facility] Urine cultureOrdered By: Issa Chapin on 01-08-2025 Bacteria identified Cx Nom (U) Culture exhibits no growth. [facility] Urine ruwht-6-kngxuposoxssos abinol (THC) measurementOrdered By: Issa Chapin on 01-08-2025 Cannabinoids Screen Ql (U) Negative < 50 ng/mL [facility] Urine glucose detectionOrder ed By: Issa Chapin on 01-08-2025 Glucose Ql (U) Normal mg/dl Normal [facility] Urine leukocyte esterase det ection by dipstickOrdered By: Issa Chaipn on 01-08-2025 Leukocyte esterase Test strip Ql (U) 100 /ul High Negative [facility] Urine pHOrdered By: Issa beth on 01-08-2025 pH (U) 6.0 [pH] 5.0 - 8.0 [facility] Urine phencyclidine (PCP) de tectionOrdered By: Issa Chapin on 01-08-2025 Phencyclidine Ql (U) Negative < 25 ng/mL [facility] Urine sediment bacteria coun t by microscopy (number/high power field)Ordered By: Issa Chapin on 01-08-2025 Bacteria LM.HPF (Urine sed) [#/Area] 2 /[HPF] None Seen [facility] Urine specific gravity measu rementOrdered By: Issa Chapin on 01-08-2025 Specific gravity (U) [Rel density] 1.020 1.002-1.030 [facility] Urine urobilinogen measureme ntOrdered By: Issa Chapin on 01-08-2025 Urobilinogen Ql (U) 1 mg/dl High Normal [facility] White blood cell (WBC) count Ordered By: Issa Chapin on 01-08-2025 WBC (Bld) [#/Vol] 9.8 10*3/uL 4.4-11.0 [facility] White blood cell countOrdere d By: Issa Chapin on 01-08-2025 White blood cell count 25-50 SEEN /hpf 0-5 [facility] CNPNon 12-25-2024 CNPN Telephone ([facility]) PERNELL RODRIGUEZ ([id number]) 1960 F IPA Date Time Provider Department [...] set up. Please try contacting patient again. T[employer] message with provider's response sent to patient as well. OMARI Molina Rilee, MA 12/28/2024 11:57 AM Signed Attempted to reach pt, unable to reach and unable to LM. Letter being sent to pt to contact office regarding her recent lab results. Did not read [employer] message. Letter mailed to pt asking for [...] (HCC) [Z01.0 (more content not included)... Normal [facility] CBC W Auto Differential pane l (Bld)on 12-18-2024 Basophils (Bld) [#/Vol] 0.03 10*3/uL [facility] Basophils/100 WBC (Bld) 0.4 % C [facility] Differential cell count method Nom (Bld) Auto [facility] Eosinophils (Bld) [#/Vol] 0.24 10*3/uL [facility] Eosinophils/100 WBC (Bld) 3.1 % [facility] Erythrocyte distribution width (RBC) [Ratio] 13.8 % 11.5 - 15.0 % [facility] Hematocrit (Bld) [Volume fraction] 44.6 % 36.0 - 46.0 % [facility] Hemoglobin (Bld) [Mass/Vol] 13.8 g/dL 11.5 - 15.5 g/dL [facility] Immature granulocytes (Bld) [#/Vol] [facility] Immature granulocytes/100 WBC (Bld) 0.1 % [facility] Lymphocytes (Bld) [#/Vol] 2.33 10*3/uL [facility] Lymphocytes/100 WBC (Bld) 29.7 % [facility] MCH (RBC) [Entitic mass] 30.1 pg 26. 0 - 34.0 pg [facility] MCHC (RBC) [Mass/Vol] 30.9 g/dL 30.5 - 36.0 g/dL [facility] MCV (RBC) [Entitic vol] 97.4 fL 80.0 - 100.0 fL [facility] Monocytes (Bld) [#/Vol] 0.61 10*3/uL [facility] Monocytes/100 WBC (Bld) 7.8 % [facility] Neutrophils (Bld) [#/Vol] 4.62 10*3/uL [facility] Neutrophils/100 WBC (Bld) 58.9 % [facility] Nucleated RBC (Bld) [#/Vol] [facility] Nucleated RBC/100 WBC (Bld) [Ratio] 0 % /100 WBC [facility] Platelet mean volume (Bld) [Entitic vol] 10.9 fL 9.0 - 12.7 fL [facility] Platelets (Bld) [#/Vol] 281 10*3/uL [facility] RBC (Bld) [#/Vol] 4.58 10*6/uL 3.90 - 5.2 0 m/uL [facility] WBC (Bld) [#/Vol] 7.84 10*3/uL [facility] Basophils (Bld) [#/Vol] 0.03 10*3/uL Normal <0.11 [facility] Comment on above: Order Comment: Speci men Type: BLOOD SPECIMENOrdering Facility: [facility] Address: [address] [place] [address] Performed By: #### 5 7021-8 ####[facility] LABCLIA [id number] [place] [address] [place] Basophils/100 WBC (Bld) 0.4 % Normal [facility] Comment on above: Order Comment: Speci men Type: BLOOD SPECIMENOrdering Facility: [facility] Address: [address] [place] [address] Performed By: #### 5 7021-8 ####[facility] LABCLIA [id number] [place] [address] [place] Differential cell count method Nom (Bld) Auto Normal [facility] Comment on above: Order Comment: Speci men Type: BLOOD SPECIMENOrdering Facility: [facility] Address: [address] [place] [address] Performed By: #### 5 7021-8 ####[facility] LABCLIA [id number] [address] [place] Eosinophils (Bld) [#/Vol] 0.24 10*3/uL Normal <0.46 [facility] Comment on above: Order Comment: Speci men Type: BLOOD SPECIMENOrdering Facility: [facility] Address: [address] [place] [address] Performed By: #### 5 7021-8 ####[facility] LABCLIA [id number] [address] [place] Eosinophils/100 WBC (Bld) 3.1 % Normal [facility] Comment on above: Order Comment: Speci men Type: BLOOD SPECIMENOrdering Facility: [facility] Address: [address] [place] [address] Performed By: #### 5 7021-8 ####[facility] LABCLIA [id number] [place] [address] [place] Erythrocyte distribution width (RBC) [Ratio] 13.8 % Normal 11.5-15.0 [facility] Comment on above: Order Comment: Speci men Type: BLOOD SPECIMENOrdering Facility: [facility] Address: [address] [place] [address] Performed By: #### 5 7021-8 ####[facility] LABCLIA [id number] [place] [address] [place] Hematocrit (Bld) [Volume fraction] 44.6 % Normal 36.0-46.0 [facility] Comment on above: Order Comment: Speci men Type: BLOOD SPECIMENOrdering Facility: [facility] Address: [address] [place] [address] Performed By: #### 5 7021-8 ####[facility] LABIA [id number] [place] [address] [place] Hemoglobin (Bld) [Mass/Vol] 13.8 g/dL Normal 11.5-15.5 [facility] Comment on above: Order Comment: Speci men Type: BLOOD SPECIMENOrdering Facility: [facility] Address: [address] [place] [address] Performed By: #### 5 7021-8 ####[facility] LABIA [id number] [place] [address] [place] Immature granulocytes (Bld) [#/Vol] 10*3/uL Normal <0.10 [facility] Comment on above: Order Comment: Speci men Type: BLOOD SPECIMENOrdering Facility: [facility] Address: [address] [place] [address] Performed By: #### 5 7021-8 ####[facility] LABIA [id number] [place] [address] [place] Immature granulocytes/100 WBC (Bld) 0.1 % Normal [facility] Comment on above: Order Comment: Speci men Type: BLOOD SPECIMENOrdering Facility: [facility] Address: [address] [place] [address] Performed By: #### 5 7021-8 ####[facility] LABCLIA [id number] [place] [address] [place] Lymphocytes (Bld) [#/Vol] 2.33 10*3/uL Normal 1.00-4.00 [facility] Comment on above: Order Comment: Speci men Type: BLOOD SPECIMENOrdering Facility: [facility] Address: [address] [place] [address] Performed By: #### 5 7021-8 ####[facility] LABCLIA [id number] [place] [address] [place] Lymphocytes/100 WBC (Bld) 29.7 % Normal [facility] Comment on above: Order Comment: Speci men Type: BLOOD SPECIMENOrdering Facility: [facility] [facility] Address: [address] [place] [address] Performed By: #### 5 7021-8 ####[facility] LABCLIA [id number] [place] [address] [place] MCH (RBC) [Entitic mass] 30.1 pg Normal 26.0-34.0 [facility] Comment on above: Order Comment: Speci men Type: BLOOD SPECIMENOrdering Facility: [facility] Address: [address] [place] [address] Performed By: #### 5 7021-8 ####[facility] LABCLIA [id number] [place] [address] [place] MCHC (RBC) [Mass/Vol] 30.9 g/dL Normal 30.5-36.0 [facility] Comment on above: Order Comment: Speci men Type: BLOOD SPECIMENOrdering Facility: [facility] Address: [address] [place] [address] Performed By: #### 5 7021-8 ####[facility] LABCLIA [id number] [address] [address] [place] MCV (RBC) [Entitic vol] 97.4 fL Normal 80.0-100.0 [facility] Comment on above: Order Comment: Speci men Type: BLOOD SPECIMENOrdering Facility: [facility] Address: [address] [place] [address] Performed By: #### 5 7021-8 ####[facility] LABCLIA [id number] [place] [address] [place] Monocytes (Bld) [#/Vol] 0.61 10*3/uL Normal <0.87 [facility] Comment on above: Order Comment: Speci men Type: BLOOD SPECIMENOrdering Facility: [facility] Address: [address] [place] [address] Performed By: #### 5 7021-8 ####[facility] LABCLIA [id number] [place] [address] [place] Monocytes/100 WBC (Bld) 7.8 % Normal [facility] Comment on above: Order Comment: Speci men Type: BLOOD SPECIMENOrdering Facility: [facility] Address: [address] [place] [address] Performed By: #### 5 7021-8 ####[facility] LABCLIA [id number] [place] [address] [place] Neutrophils (Bld) [#/Vol] 4.62 10*3/uL Normal 1.45-7.50 [facility] Comment on above: Order Comment: Speci men Type: BLOOD SPECIMENOrdering Facility: [facility] Address: [address] [place] [address] Performed By: #### 5 7021-8 ####[facility] LABCLIA [id number] [place] [address] [place] Neutrophils/100 WBC (Bld) 58.9 % Normal [facility] Comment on above: Order Comment: Speci men Type: BLOOD SPECIMENOrdering Facility: [facility] Address: [address] [place] [address] Performed By: #### 5 7021-8 ####[facility] LABCLIA [id number] [place] [address] [place] Nucleated RBC (Bld) [#/Vol] 10*3/uL Normal <0.01 [facility] Comment on above: Order Comment: Speci men Type: BLOOD SPECIMENOrdering Facility: [facility] Address: [address] [place] [address] Performed By: #### 5 7021-8 ####[facility] LABCLIA [id number] [place] [address] [place] Nucleated RBC/100 WBC (Bld) [Ratio] 0.0 /100 WBC Normal [facility] Comment on above: Order Comment: Speci men Type: BLOOD SPECIMENOrdering Facility: [facility] Address: [address] [place] [address] Performed By: #### 5 7021-8 ####[facility] LABIA [id number] [place] [address] [place] Platelet mean volume (Bld) [Entitic vol] 10.9 fL Normal 9.0-12.7 [facility] Comment on above: Order Comment: Speci men Type: BLOOD SPECIMENOrdering Facility: [facility] Address: [address] [place] [address] Performed By: #### 5 7021-8 ####[facility] LABCLIA [id number] [place] [id number] [place] Platelets (Bld) [#/Vol] 281 10*3/uL Normal 150-400 [facility] Comment on above: Order Comment: Speci men Type: BLOOD SPECIMENOrdering Facility: [facility] Address: [address] [place] [address] Performed By: #### 5 7021-8 ####[facility] LABCLIA [id number] [place] [address] [place] RBC (Bld) [#/Vol] 4.58 10*6/uL Normal 3.90-5.20 [facility] Comment on above: Order Comment: Speci men Type: BLOOD SPECIMENOrdering Facility: [facility] Address: [address] [place] [address] Performed By: #### 5 7021-8 ####[facility] LABCLIA [id number] [place] [address] [place] WBC (Bld) [#/Vol] 7.84 10*3/uL Normal 3.70-11.00 [facility] Comment on above: Order Comment: Speci men Type: BLOOD SPECIMENOrdering Facility: [facility] Address: [address] [place] [address] Performed By: #### 5 7021-8 ####[facility] LABCLIA [id number] [address] [place] CNOVon 12-18-2024 CNOV Office Visit (FAMPWS ) PERNELL RODRIGUEZ ([id number]) 1960 F Date Time Provider Department 12/18/24 [...] several years or f/u with Urology or [employer]. Some of this is due to the fact she lost her test case developer through the [facility] services who help her manage these. Pernell [...] few months. She was first admitted to [facility] on 09/12/2023, after returning from [place], for a blood clot and was discharged with a 30-day prescription for Eliquis. She has not followed up with her primary care physician or specialists since then and has been off Eliquis for 2-3 months. She has not seen her operations expert, vocational rehabilitation specialist, or neurologist in the last 6 months. She has been living with a friend temporarily but does not have a permanent place to live and is technically still homeless. She has been advised to move into a assisted facility but has refused due to negative [...] Chest pain 02/14/[address] Jacob in [facility]. Had a normal cardiac CTA in 2009 with no calcium. Chronic back pain greater than 3 months duration 04/02/2015 Chronic insomnia 03/12/2020 Ilya Calderón ([facility]) on melatonin. Chronic obstructive pulmonary disease (HCC) 04/25/2015 Chronic pain 01/14/2014 Constipation 02/12/2014 Dyer or callus 11/16/2015 Current use of proton pump inhibitor 10/11/2017 CVA (cerebral infarction) 01/14/2014 Diabetic eye exam ([facility]) 01/14/[address] Sanchez last done 03/02/2019 Diabetic foot ([facility]) 01/14/[address] Martins Extrapyramidal reaction 01/14/2014 Gastroesophageal reflux disease without esophagitis 04/25/2015 History of CVA (cerebrovascular accident) 04/25/[address] Ilya Calderón ([facility]) Hives (more content not included)... Normal [facility] Comprehensive metabolic 2000 panelon 12-18-2024 Albumin [Mass/Vol] 3.8 g/dL Low 3.9-4.9 [facility] Comment on above: Order Comment: Speci men Type: BLOOD SPECIMENOrdering Facility: [facility] Address: [address] [place] [address] [place] [address] Performed By: #### L [facility], [address]-6, , 2132-03 ####[facility] LABCLIA [id number] [address] [address] [place] ALP [Catalytic activity/Vol] 79 U/L Normal 34-123 [facility] Comment on above: Order Comment: Speci men Type: BLOOD SPECIMENOrdering Facility: [facility] Address: [address] [place] [address] Performed By: #### L IPNF, , , 2132-03 ####[facility] LABCLIA [id number] [address] [address] [place] ALT [Catalytic activity/Vol] 10 U/L Normal 7-38 [facility] Comment on above: Order Comment: Speci men Type: BLOOD SPECIMENOrdering Facility: [facility] Address: [address] [place] [address] Performed By: #### L IPNF, , , 2132-03 ####[facility] LABCLIA [id number] [address] [address] [place] Anion gap [Moles/Vol] 7 mmol/L Low 8-15 [facility] Comment on above: Order Comment: Speci men Type: BLOOD SPECIMENOrdering Facility: [facility] Address: [address] [place] [address] Performed By: #### L IPNF, , , 2132-03 ####[facility] LABCLIA [id number] [address] [address] [place] AST [Catalytic activity/Vol] 16 U/L Normal 13-35 [facility] Comment on above: Order Comment: Speci men Type: BLOOD SPECIMENOrdering Facility: [facility] Address: [address] [place] [address] Performed By: #### L IPNF, , , 2132-03 ####[facility] LABCLIA [id number] [address] [address] [place] Bilirubin [Mass/Vol] 0.3 mg/dL Normal 0.2-1.3 [facility] Comment on above: Order Comment: Speci men Type: BLOOD SPECIMENOrdering Facility: [facility] Address: [address] [place] [address] Performed By: #### L IPNF, , , 2132-03 ####[facility] LABCLIA [id number] [address] [address] [place] Calcium [Mass/Vol] 9.5 mg/dL Normal 8.5-10.2 [facility] Comment on above: Order Comment: Speci men Type: BLOOD SPECIMENOrdering Facility: [facility] Address: [address] [place] [address] Performed By: #### L IPNF, , , 2132-03 ####[facility] LABCLIA [id number] [place] [address] [place] Chloride [Moles/Vol] 110 mmol/L High 98-107 [facility] Comment on above: Order Comment: Speci men Type: BLOOD SPECIMENOrdering Facility: [facility] Address: [address] [place] [address] Performed By: #### L IPNF, , , 2132-03 ####[facility] LABCLIA [id number] [address] [address] [place] CO2 [Moles/Vol] 26 mmol/L Normal 22-30 [facility] Comment on above: Order Comment: Speci men Type: BLOOD SPECIMENOrdering Facility: [facility] Address: [address] [place], [place] [address] Performed By: #### L IPNF, , , 2132-03 ####[facility] LABCLIA [id number] [place] [address] [place] Creatinine [Mass/Vol] 1.21 mg/dL High 0.58-0.96 [facility] Comment on above: Order Comment: César carrera Type: BLOOD SPECIMENOrdering Facility: [facility] Address: [address] [place] [address] Performed By: #### L IPNF, , , 2132-03 ####[facility] LABIA [id number] [place] [address] [place] Creatinine and Glomerular filtration rate.predicted panel (S/P/Bld) 51 mL/min/1.73m??? Low >=60 [facility] Comment on above: Order Comment: César carrera Type: BLOOD SPECIMENOrdering Facility: [facility] Address: [address] [place] [address] Result Comment: Maurilio mated Glomerular Filtration Rate [...] By: #### L IPNF, , , 2132-03 ####[facility] LABIA [id number] [place] [address] [place] Glucose [Mass/Vol] 94 mg/dL Normal 74-99 [facility] Comment on above: Order Comment: César carrera Type: BLOOD SPECIMENOrdering Facility: [facility] Address: [address] [place] [address] Result Comment: The British Diabetes Association (ADA) provides guidance for cutoff [...] Standards of Medical Care in Diabetes 2016, British Diabetes Association. Diabetes Care. 2016.39(Suppl 1). Performed By: #### L IPNF, , , 2132-03 ####[facility] LABCLIA [id number] [place] [address] [place] Potassium [Moles/Vol] 4.4 mmol/L Normal 3.7-5.1 [facility] Comment on above: Order Comment: Speci men Type: BLOOD SPECIMENOrdering Facility: [facility] Address: [address] [place] [address] Performed By: #### L IPNF, , , 2132-03 ####[facility] LABIA [id number] [place] [address] [place] Protein [Mass/Vol] 6.3 g/dL Normal 6.3-8.0 [facility] Comment on above: Order Comment: Savannai deandre Type: BLOOD SPECIMENOrdering Facility: [facility] Address: [address] [place] [address] Performed By: #### L IPNF, , , 2132-03 ####[facility] LABIA [id number] [place] [address] [place] Sodium [Moles/Vol] 143 mmol/L Normal 136-144 [facility] Comment on above: Order Comment: Speci men Type: BLOOD SPECIMENOrdering Facility: [facility] Address: [address] [place] [address] Performed By: #### L IPNF, , , 2132-03 ####[facility] LABCLIA [id number] [place] [address] [place] Urea nitrogen [Mass/Vol] 16 mg/dL Normal 7-21 [facility] Comment on above: Order Comment: César carrera Type: BLOOD SPECIMENOrdering Facility: [facility] Address: [address] [place] [address] Performed By: #### L IPNF, [address]-6, 96351-7, 2131-9 ####[facility] LABCLIA [id number] [place] [address] [place] HbA1c (Bld)on 12-18-2024 Average glucose Estimated from glycated hemoglobin (Bld) [Mass/Vol] 123 mg/dL [facility] Comment on above: eAG: (Estimated aver age glucose) is a calculated value from HgbA1c and is healthcare sales representative of the average blood glucose level in the last 2-3 month period. HbA1c (Bld) [Mass fraction] 5.9 % High 4.3 - 5.6 % [facility] Comment on above: British Diabetes As sociation guidelines indicate that patients with HgbA1c in the range 5.7-6.4% are at increased risk for development of diabetes, and intervention by lifestyle modification may be beneficial. HgbA1c greater or equal to 6.5% is considered diagnostic of diabetes. Interpretation and review of laboratory results Abnormal [facility] Average glucose Estimated from glycated hemoglobin (Bld) [Mass/Vol] 123 mg/dL Normal [facility] Comment on above: Order Comment: César carrera Type: BLOOD SPECIMENOrdering Facility: [facility] Address: [address] [place] [address] Result Comment: eAG: (Estimated average glucose) is a calculated value from HgbA1c and is healthcare sales representative of the average blood glucose level in the last 2-3 month period. Performed By: #### 5 5454-3 ####[facility] LABCLIA [id number] [place] [address] [place] HbA1c (Bld) [Mass fraction] 5.9 % High 4.3-5.6 [facility] Comment on above: Order Comment: César carrera Type: BLOOD SPECIMENOrdering Facility: [facility] Address: [address] [place] [address] Result Comment: Amer ican Diabetes Association guidelines indicate that patients with HgbA1c in the range 5.7-6.4% are at increased risk for development of diabetes, and intervention by lifestyle modification may be beneficial. HgbA1c greater or equal to 6.5% is considered diagnostic of diabetes. Performed By: #### 5 5454-3 ####[facility] LABCLIA [id number] [place] [address] [place] LIPID PANEL, NONFASTINGon Cholesterol [Mass/Vol] 129 mg/dL Normal <200 [facility] Comment on above: Order Comment: Speci men Type: BLOOD SPECIMENOrdering Facility: [facility] Address: [address] [place] [address] Result Comment: <200 mg/dL, Desirable 200-239 mg/dL, Borderline high >239 mg/dL, High Performed By: #### L IPNF, 79[address]-1, , 2132-03 ####[facility] LABCLIA [id number] [place] [address] [place] HDL CHOLESTEROL, NF 41 mg/dL Normal >39 [facility] Comment on above: Order Comment: Savannai deandre Type: BLOOD SPECIMENOrdering Facility: [facility] Address: [address] [place] [address] Result Comment: 40-5 9 mg/dL, Acceptable >59 mg/dL, High: Negative risk factor for coronary heart disease <40 mg/dL, Low: Positive risk factor for coronary heart disease Performed By: #### L IPNF, [address]-0, , 2132-03 ####[facility] LABCLIA [id number] [place] [address] [place] LDL CHOLESTEROL CALCULATED, NF 67 mg/dL Normal <100 [facility] Comment on above: Order Comment: Speci men Type: BLOOD SPECIMENOrdering Facility: [facility] Address: [address] [place] [address] Result Comment: <100 mg/dL, Optimal 100-129 mg/dL, Near optimal/above optimal 130-159 mg/dL, Borderline high 160-189 mg/dL, High >189 mg/dL, Very high Secondary prevention optimal LDL Cholesterol levels are recommended to be <70 mg/dL LDL cholesterol is calculated using the Raya-NIH equation. Performed By: #### L SAMANTHA, , , 2132-03 ####[facility] LABCLIA [id number] [place] [address] [place] LDL/HDL RATIO, NF 1.63 mg/dL Normal <2.54 [facility] Comment on above: Order Comment: César carrera Type: BLOOD SPECIMENOrdering Facility: [facility] Address: [address] [place] [address] Result Comment: Refe rence: 1. National Cholesterol Education Program ATP III Guideline At-A-Glance Quick Desk Reference: National Heart, Lung, and Blood Hawks. National Institutes of Health. 2001: NIH Publication No. 01-3305. 2. An International Atherosclerosis Society position paper: global recommendations for the management of dyslipidemia: executive summary, Atherosclerosis. 2014: 232(2):410-413. Performed By: #### L SAMANTHA, , , 2132-03 ####[facility] LABCLIA [id number] [place] [address] [place] NON HDL CHOL, NF 88 mg/dL Normal <130 [facility] Comment on above: Order Comment: César carrera Type: BLOOD SPECIMENOrdering Facility: [facility] Address: [address] [place] [address] Result Comment: <130 mg/dL, Optimal 130-159 mg/dL, Near optimal/above optimal 160-189 mg/dL, Borderline high 190-219 mg/dL, High >219 mg/dL, Very high Secondary prevention optimal non HDL Cholesterol levels are recommended to be <100 mg/dL Performed By: #### L SAMANTHA, , , 2132-03 ####[facility] LABCLIA [id number] [address] [address] [place] T CHOL/HDL RATIO NF 3.15 mg/dL Normal <5.10 [facility] Comment on above: Order Comment: Speci men Type: BLOOD SPECIMENOrdering Facility: [facility] Address: [address] [place] [address] Performed By: #### L IPNF, , , 2132-03 ####[facility] LABCLIA [id number] [address] [address] [place] TRIGLYCERIDES, NF 113 mg/dL Normal <150 [facility] Comment on above: Order Comment: Speci men Type: BLOOD SPECIMENOrdering Facility: [facility] Address: [address] [place] [address] Result Comment: <150 mg/dL, Normal 150-199 mg/dL, Borderline high 200-499 mg/dL, High >499 mg/dL, Very high Performed By: #### L IPNF, , , 2132-03 ####[facility] LABCLIA [id number] [place] [address] [place] VLDL CHOLESTEROL, NF 17 mg/dL Normal <30 [facility] Comment on above: Order Comment: Speci men Type: BLOOD SPECIMENOrdering Facility: [facility] Address: [address] [place] [address] Performed By: #### L IPNF, , , 2132-03 ####[facility] LABCLIA [id number] [place] [id number] [place] Magnesium SerPl-mCncon 12-18 Magnesium [Mass/Vol] 2.1 mg/dL Normal 1.7-2.3 [facility] Comment on above: Order Comment: Speci men Type: BLOOD SPECIMENOrdering Facility: [facility] Address: [address] [place] [address] Performed By: #### L IPNF, 24360-3, , 2132-03 ####[facility] LABCLIA [id number] [place] [id number] [place] Vit B12 SerPl-ncon 12-18-2 025 Cobalamin (Vitamin B12) [Mass/Vol] 428 pg/mL Normal 232-1245 [facility] Comment on above: Order Comment: Speci men Type: BLOOD SPECIMENOrdering Facility: [facility] Address: [address] [place] [id number] Performed By: #### L IPNF, , , 2132-03 ####[facility] LABCLIA [id number] [place] [id number] [facility] CNPNatalie 12-07-2024 CNPN Telephone (FAMPWS) PERNELL RODRIGUEZ ([id number]) 1960 F Date Time Provider Department 12/07[facility] During your visit today, we recorded the following information about you: Shanti Monreal RN 12/07/2024 2:50 PM Signed Pernell calls to report that she needs an order for incontinence supplies (2 XL pull ups) faxed to [facility] at [phone]. Patient reports that the full size briefs [...] - COMPO (more content not included)... Normal [facility] Abdomen/Pelvis W IV Cont ONL Yon 11-14-2024 Abdomen/Pelvis W IV Cont ONLY Normal [facility] Absolute lymphocyte countOrd ered By: Wyatt Amos on 11-14-2024 Lymphocytes Auto (Unsp spec) [#/Vol] 1.83 10*3/uL 0.83-4.51 [facility] Anion gap in Serum or Plasma Ordered By: Wyatt Amos on 11-14-2024 Anion gap [Moles/Vol] 12 mmol/L 5-15 [facility] Anisocytosis LM Ql (Bld)Orde red By: Wyatt Amos on 11-14-2024 Anisocytosis Ql (Bld) PAPER STRIPPER [facility] Automated lymphocyte count a s percentage of total leukocytesOrdered By: Wyatt Amos on 11-14-2024 Lymphocytes/100 WBC Auto (Unsp spec) 20.8 % 19-41 [facility] BUN/creatinine ratioOrdered By: Wyatt Amos on 11-14-2024 Urea nitrogen/Creatinine [Mass ratio] 12.9 mg/mg 10-20 [facility] Band neutrophils %Ordered By : Wyatt Amos on 11-14-2024 Band neutrophils % PAPER STRIPPER [facility] Basophil percentageOrdered B y: Wyatt Amos on 11-14-2024 Basophils/100 WBC (Bld) 0.3 % 0-1 [facility] Basophils/100 WBC Manual cnt (Unsp spec)Ordered By: Wyatt Amos on 11-14-2024 Basophils/100 WBC (Unsp spec) PAPER STRIPPER [facility] Bilirubin Test strip Ql (U)O rdered By: Wyatt Amos on 11-14-2024 Bilirubin Ql (U) Negative Negative [facility] Bilirubin, totalOrdered By: Wyatt Amos on 11-14-2024 Bilirubin [Mass/Vol] 0.41 mg/dL 0.00-1.30 [facility] Bite cells detectionOrdered By: Wyatt Amos on 11-14-2024 Bite cells LM Ql (Bld) PAPER STRIPPER [facility] Blood Debra rods detection by light microscopyOrdered By: Wyatt Amos on 11-14-2024 Debra rods LM Ql (Bld) PAPER STRIPPER [facility] Blood acanthocytes detection by light microscopyOrdered By: Wyatt Amos on 11-14-2024 Acanthocytes LM Ql (Bld) [facility] Blood basophilic stippling d etection by light microscopyOrdered By: Wyatt Amos on 11-14-2024 Basophilic stippling LM Ql (Bld) PAPER STRIPPER [facility] Blood maksim cells detection b y light microscopyOrdered By: Wyatt Amos on 11-14-2024 [place] cells LM Ql (Bld) PAPER STRIPPER [facility] Blood dohle body detection b y light microscopyOrdered By: Wyatt Amos on 11-14-2024 Dohle body LM Ql (Bld) [facility] [employer] Blood leukocytes count corre cted for nucleated erythrocytes (number/volume)Ordered By: Wyatt Amos on 11-14-2024 WBC corrected for nucl RBC (Bld) [#/Vol] PAPER STRIPPER [facility] Blood manual differential co mment interpretation (narrative result)Ordered By: Wyatt Amos on 11-14-2024 Manual differential comment Jacobo (Bld) [Interp] PAPER STRIPPER [facility] Blood platelet morphology de termination (nominal result)Ordered By: Wyatt Amos on 11-14-2024 Platelet morphology finding Nom (Bld) PAPER STRIPPER [facility] Blood polychromasia detectio n by light microscopyOrdered By: Wyatt Mariscal on 11-14-2024 Polychromasia LM Ql (Bld) PAPER STRIPPER [facility] Blood rouleaux detection by light microscopyOrdered By: Wyatt Amos on 11-14-2024 Rouleaux LM Ql (Bld) PAPER STRIPPER [facility] Blood schistocyte detection by light microscopyOrdered By: Wyatt Amos on 11-14-2024 Schistocytes LM Ql (Bld) PAPER STRIPPER [facility] Blood spherocyte detection b y light microscopyOrdered By: Wyatt Amos on 11-14-2024 Spherocytes LM Ql (Bld) PAPER STRIPPER [facility] Blood vacuolated neutrophils detection by light microscopyOrdered By: Wyatt Amos on 11-14-2024 Neutrophils.vacuolated LM Ql (Bld) PAPER STRIPPER [facility] CBC W/Diff, Automatedon 10-18 Absolute Lymph 1.83 X10 3/uL Normal 0.83-4.51 [facility] Comment on above: Result Comment: DIFF INCORRECT Performed By: #### L 501.2450, L100.0100, L500.4050 ####[facility] [address] [place], [address] Absolute Neut 6.0 X10 3/uL Normal 2.0-7.7 [facility] Comment on above: Result Comment: DIFF INCORRECT Performed By: #### L 501.2450, L100.0100, L500.4050 ####[facility] [address] [place], [address] Basophils/100 WBC (Bld) 0.3 % Normal 0-1 [facility] Comment on above: Result Comment: DIFF INCORRECT Performed By: #### L 501.2450, L100.0100, L500.4050 ####[facility] [address] [place], [address] Eosinophils/100 WBC (Bld) 2.5 % Normal 0-5 [facility] Comment on above: Result Comment: DIFF INCORRECT Performed By: #### L 501.2450, L100.0100, L500.4050 ####[facility] [address] [place], [address] Erythrocyte distribution width (RBC) [Ratio] 13.8 % Normal 11.6-14.6 [facility] Comment on above: Result Comment: DIFF INCORRECT Performed By: #### L 501.2450, L100.0100, L500.4050 ####[facility] [address] [place], [address] Hematocrit (Bld) [Volume fraction] 43.3 % Normal 37-47 [facility] Comment on above: Result Comment: DIFF INCORRECT Performed By: #### L 501.2450, L100.0100, L500.4050 ####[facility] [address] [place], [address] Hemoglobin (Bld) [Mass/Vol] 14.1 g/dL Normal 12.0-15.0 [facility] Comment on above: Result Comment: DIFF INCORRECT Performed By: #### L 501.2450, L100.0100, L500.4050 ####[facility] [address] [place], [address] IG% 0.200 Normal 0.0-0.9 [facility] Comment on above: Result Comment: IG% - Immature Granulocytes (promyelocytes, myelocytes andmetamyelocytes) > 1% indicates that a LEFT SHIFT is Present. Performed By: #### L 501.2450, L100.0100, L500.4050 ####[facility] [address] [place], [address] Lymphocytes/100 WBC (Bld) 20.8 % Normal 19-41 [facility] Comment on above: Result Comment: DIFF INCORRECT Performed By: #### L 501.2450, L100.0100, L500.4050 ####[facility] [address] [place], [address] MCH (RBC) [Entitic mass] 30.9 pg Normal 27.0-32.0 [facility] Comment on above: Result Comment: DIFF INCORRECT Performed By: #### L 501.2450, L100.0100, L500.4050 ####[facility] [address] [place], [address] MCHC (RBC) [Mass/Vol] 32.6 g/dL Normal 32-36 [facility] Comment on above: Result Comment: DIFF INCORRECT Performed By: #### L 501.2450, L100.0100, L500.4050 ####[facility] [address] [place], [address] MCV (RBC) [Entitic vol] 95.0 fL Normal 81-99 [facility] Comment on above: Result Comment: DIFF INCORRECT Performed By: #### L 501.2450, L100.0100, L500.4050 ####[facility] [address] [place], [address] Monocytes/100 WBC (Bld) 7.6 % Normal 0-10 [facility] Comment on above: Result Comment: DIFF INCORRECT Performed By: #### L 501.2450, L100.0100, L500.4050 ####[facility] [address] [place], [address] Neutrophils/100 WBC (Bld) 68.6 % Normal 47-70 [facility] Comment on above: Result Comment: DIFF INCORRECT Performed By: #### L 501.2450, L100.0100, L500.4050 ####[facility] [address] [place], [address] Nucleated RBC (Bld) [#/Vol] 0 10*3/uL Normal 0-5 [facility] Comment on above: Result Comment: DIFF INCORRECT Performed By: #### L 501.2450, L100.0100, L500.4050 ####[facility] [address] [place], [address] Platelet mean volume (Bld) [Entitic vol] 10.5 fL Normal 6.2-12.0 [facility] Comment on above: Result Comment: DIFF INCORRECT Performed By: #### L 501.2450, L100.0100, L500.4050 ####[facility] [address] [place], [address] Platelets (Bld) [#/Vol] 325 10*3/uL Normal 150-450 [facility] Comment on above: Result Comment: DIFF INCORRECT Performed By: #### L 501.2450, L100.0100, L500.4050 ####[facility] [address] [place], [address] RBC (Bld) [#/Vol] 4.56 10*6/uL Normal 4.2-5.4 [facility] Comment on above: Result Comment: DIFF INCORRECT Performed By: #### L 501.2450, L100.0100, L500.4050 ####[facility] [address] [place], [address] RDW SD 47.9 fl High 35.1-43.9 [facility] Comment on above: Result Comment: DIFF INCORRECT Performed By: #### L 501.2450, L100.0100, L500.4050 ####[facility] [address] [place], [address] WBC (Bld) [#/Vol] 8.8 10*3/uL Normal 4.4-11.0 [facility] Comment on above: Result Comment: DIFF INCORRECT Performed By: #### L 501.2450, L100.0100, L500.4050 ####[facility] [address] [place], [address] Carbon dioxide, total [Moles /volume] in Central venous bloodOrdered By: Wyatt Amos on 11-14-2024 CO2 [Moles/Vol] 22.5 mmol/L 21.0-32.0 [facility] Chloride assayOrdered By: Keshav Amos on 11-14-2024 Chloride [Moles/Vol] 105 mmol/L 98-108 [facility] Comprehensive Metabolic Prof ilon 11-14-2024 Albumin [Mass/Vol] 4.2 g/dL Normal 3.4-4.8 [facility] Comment on above: Performed By: #### L 501.2450, L100.0100, L500.4050 ####[facility] [address] [place], [address] Albumin/Globulin [Mass ratio] 1.3 {ratio} Normal 0.9-2.4 [facility] Comment on above: Performed By: #### L 501.2450, L100.0100, L500.4050 ####[facility] [address] [place], [address] ALK PHOS 79 U/L Normal 35-104 [facility] Comment on above: Performed By: #### L 501.2450, L100.0100, L500.4050 ####[facility] [address] [place], [address] ALT [Catalytic activity/Vol] 19 U/L Normal <=34 [facility] Comment on above: Performed By: #### L 501.2450, L100.0100, L500.4050 ####[facility] [address] [place], [address] AST [Catalytic activity/Vol] 27 U/L Normal <=31 [facility] Comment on above: Performed By: #### L 501.2450, L100.0100, L500.4050 ####[facility] [address] [place], [address] Bilirubin [Mass/Vol] 0.41 mg/dL Normal 0.00-1.30 [facility] Comment on above: Performed By: #### L 501.2450, L100.0100, L500.4050 ####[facility] [address] [place], [address] BUN/CRE 12.9 RATIO Normal 10-20 [facility] Comment on above: Performed By: #### L 501.2450, L100.0100, L500.4050 ####[facility] [address] [place], [address] Calcium [Mass/Vol] 9.7 mg/dL Normal 7.6-11.0 [facility] Comment on above: Performed By: #### L 501.2450, L100.0100, L500.4050 ####[facility] [address] [place], [address] Chloride [Moles/Vol] 105 mmol/L Normal 98-108 [facility] Comment on above: Performed By: #### L 501.2450, L100.0100, L500.4050 ####[facility] [address] [place], [address] CO2 [Moles/Vol] 22.5 mmol/L Normal 21.0-32.0 [facility] Comment on above: Performed By: #### L 501.2450, L100.0100, L500.4050 ####[facility] [address] [place], [address] Creatinine [Mass/Vol] 1.31 mg/dL High 0.70-1.20 [facility] Comment on above: Performed By: #### L 501.2450, L100.0100, L500.4050 ####[facility] [address] [place], [address] ECRCL 55.91 ml/min Normal 50-250 [facility] Comment on above: Performed By: #### L 501.2450, L100.0100, L500.4050 ####[facility] [address] [place], [address] GAP 12 Normal 5-15 [facility] Comment on above: Performed By: #### L 501.2450, L100.0100, L500.4050 ####[facility] [address] [place], [address] GFR/1.73 sq M.predicted among non-blacks MDRD (S/P/Bld) [Vol rate/Area] 46 mL/min/{1.73_m2} Low >60 [facility] Comment on above: Result Comment: mL/m in/1.73m2 CKD-EPI Creatinine Equation (2020) Performed By: #### L 501.2450, L100.0100, L500.4050 ####[facility] [address] [place], [address] Globulin (S) [Mass/Vol] 3.2 g/dL Normal 2.2-4.2 [facility] Comment on above: Performed By: #### L 501.2450, L100.0100, L500.4050 ####[facility] [address] [place], [address] Glucose [Mass/Vol] 117 mg/dL High 70-99 [facility] Comment on above: Performed By: #### L 501.2450, L100.0100, L500.4050 ####[facility] [address] [place], [address] Potassium [Moles/Vol] 4.2 mmol/L Normal 3.3-5.1 [facility] Comment on above: Performed By: #### L 501.2450, L100.0100, L500.4050 ####[facility] [address] [place], [address] Sodium [Moles/Vol] 140 mmol/L Normal 133-145 [facility] Comment on above: Performed By: #### L 501.2450, L100.0100, L500.4050 ####[facility] [address] [place], [address] T PROT 7.4 g/dL Normal 5.9-8.4 [facility] Comment on above: Performed By: #### L 501.2450, L100.0100, L500.4050 ####[facility] [address] [place], [address] Urea nitrogen [Mass/Vol] 17 mg/dL Normal 4-19 [facility] Comment on above: Performed By: #### L 501.2450, L100.0100, L500.4050 ####[facility] [address] [place], [address] Emergency Department Summary on 11-14-2024 Emergency Department Summary Normal [facility] Eosinophil percentageOrdered By: Wyatt Amos on 11-14-2024 Eosinophils/100 WBC (Bld) 2.5 % 0-5 [facility] Erythrocyte Lam-Tribune bod y detectionOrdered By: Wyatt Amos on 11-14-2024 Lam-[employer] bodies LM Ql (Bld) PAPER STRIPPER [facility] Erythrocyte distribution wid th ratioOrdered By: Wyatt Amos on 11-14-2024 Erythrocyte distribution width (RBC) [Ratio] 13.8 % 11.6-14.6 [facility] Erythrocyte distribution wid th standard deviationOrdered By: Wyatt Mariscal on 11-14-2024 Erythrocyte distribution width (RBC) [Ratio] 47.9 fl High 35.1-43.9 [facility] Erythrocyte sickle cell dete ctionOrdered By: Wyatt Amos on 11-14-2024 Sickle cells LM Ql (Bld) PAPER STRIPPER [facility] Glomerular filtration rate ( GFR) estimation/1.73 sq m using serum, plasma, or whole bOrdered By: Wyatt Amos on 11-14-2024 GFR/1.73 sq M.predicted among non-blacks MDRD (S/P/Bld) [Vol rate/Area] 46 mL/min/{1.73_m2} Low >60 [facility] Hematocrit Auto (Bld) [Volum e fraction]Ordered By: Wyatt Amos on 11-14-2024 Hematocrit (Bld) [Volume fraction] 43.3 % 37-47 [facility] Hemoglobin measurementOrdere d By: Wyatt Amos on 11-14-2024 Hemoglobin (Bld) [Mass/Vol] 14.1 g/dL 12.0-15.0 [facility] Hypochromia LM Ql (Bld)Order ed By: Wyattlacie Amos on 11-14-2024 Hypochromia Ql (Bld) PAPER STRIPPER [facility] Immature granulocytes/100 WB C Auto (Bld)Ordered By: Wyattlacie Amos on 11-14-2024 Immature granulocytes/100 WBC (Bld) 0.200 % 0.0-0.9 [facility] Ketones Test strip Ql (U)Ord ered By: Wyatt Amos on 11-14-2024 Ketones Ql (U) Negative Negative [facility] Lipaseon 11-14-2024 Lipase [Catalytic activity/Vol] 24 U/L Normal 13-75 [facility] Comment on above: Result Comment: Mahin yoon note:LIPASE revised reference range effective 22.New Lipase methodology. Expected to produce lower valuesthan the previous assay method.NEW Reference Range: 13 - 75 U/L Performed By: #### L 501.2450, L100.0100, L500.4050 ####[facility] [address] [place], [address] MCV (mean corpuscular volume ) determinationOrdered By: Wyatt Amos on 11-14-2024 MCV (RBC) [Entitic vol] 95.0 fL 81-99 [facility] Macrocytes detectionOrdered By: Wyatt Amos on 11-14-2024 Macrocytes Ql (Bld) PAPER STRIPPER [facility] Mean corpuscular hemoglobin (MCH) determinationOrdered By: Wyatt Amos on 11-14-2024 MCH (RBC) [Entitic mass] 30.9 pg 27.0-32.0 [facility] Monocyte percentageOrdered B y: Wyatt Amos on 11-14-2024 Monocytes/100 WBC (Bld) 7.6 % 0-10 [facility] Mucus LM Ql (Urine sed)Order ed By: Wyatt Amos on 11-14-2024 Mucus Ql (Urine sed) 0 SEEN /hpf [facility] Neutrophil percentageOrdered By: Wyatt Amos on 11-14-2024 Neutrophils/100 WBC (Bld) 68.6 % 47-70 [facility] Nitrite Test strip Ql (U)Ord ered By: Wyatt Amos on 11-14-2024 Nitrite Ql (U) Negative Negative [facility] No Panel InformationOrdered By: Wyatt Amos on 11-14-2024 27 U/L <32 [facility] Nucleated red blood cell cou ntOrdered By: Wyatt Amos on 11-14-2024 Nucleated red blood cell count PAPER STRIPPER [facility] Pathologist review of result s (narrative result)Ordered By: Wyatt Amos on 11-14-2024 Pathologist review Jacobo (Unsp spec) [Interp] PAPER STRIPPER [facility] Platelet countOrdered By: Keshav Amos on 11-14-2024 Platelets (Bld) [#/Vol] 325 10*3/uL 150-450 [facility] Platelet estimateOrdered By: Wyatt Amos on 11-14-2024 Platelets LM Ql (Bld) PAPER STRIPPER [facility] Potassium measurement (mass/ volume)Ordered By: Wyatt Amos on 11-14-2024 Potassium (Unsp spec) [Mass/Vol] 4.2 mmol/L 3.3-5.1 [facility] Protein Test strip Ql (U)Ord ered By: Wyatt Amos on 11-14-2024 Protein Ql (U) TNP [facility] Protein, Urine (Random)on Protein (U) [Mass/Vol] 6.9 mg/dL Normal 0.0-12.0 [facility] Comment on above: Performed By: #### L 400.0001, L501.1930 ####[facility] [address] [place], [address] RBC Auto (Bld) [#/Vol]Ordere d By: Wyatt Amos on 11-14-2024 RBC (Bld) [#/Vol] 4.56 10*6/uL 4.2-5.4 [facility] Red blood cell stomatocyte d etectionOrdered By: Wyatt Amos on 11-14-2024 Stomatocytes LM Ql (Bld) PAPER STRIPPER [facility] Serum creatinine measurement (mass/volume)Ordered By: Wyatt Amos on 11-14-2024 Creatinine [Mass/Vol] 1.31 mg/dL High 0.70-1.20 [facility] Serum globulin measurementOr dered By: Wyatt Amos on 11-14-2024 Globulin (S) [Mass/Vol] 3.2 g/dL 2.2-4.2 [facility] Serum glucose measurement (m ass/volume)Ordered By: Wyatt Amos on 11-14-2024 Glucose [Mass/Vol] 117 mg/dL High 70-99 [facility] Serum or plasma alanine obregon otransferase (ALT) measurementOrdered By: Wyatt Amos on 11-14-2024 ALT [Catalytic activity/Vol] 19 U/L <35 [facility] Serum or plasma albumin dane urement (mass/volume)Ordered By: Wyatt Mariscal on 11-14-2024 Albumin [Mass/Vol] 4.2 g/dL 3.4-4.8 [facility] Serum or plasma albumin/glob ulin mass ratioOrdered By: Wyatt Amos on 11-14-2024 Albumin/Globulin [Mass ratio] 1.3 {ratio} 0.9-2.4 [facility] Serum or plasma alkaline ruddy sphatase measurementOrdered By: Wyatt Amos on 11-14-2024 ALP [Catalytic activity/Vol] 79 U/L 35-104 [facility] Serum or plasma calcium dane urement (mass/volume)Ordered By: Wyatt Mariscal on 11-14-2024 Calcium [Mass/Vol] 9.7 mg/dL 7.6-11.0 [facility] Serum or plasma urea nitroge n measurement (mass/volume)Ordered By: Wyatt Amos on 11-14-2024 Urea nitrogen [Mass/Vol] 17 mg/dL 4-19 [facility] Sodium levelOrdered By: Nathanael Amos on 11-14-2024 Sodium [Moles/Vol] 140 mmol/L 133-145 [facility] Squamous epithelial cells de tection in urine sediment by light microscopyOrdered By: Wyatt Amos on 11-14-2024 Epithelial cells.squamous LM Ql (Urine sed) 0-5 SEEN /hpf 5-10 [facility] Teardrop cell detectionOrder ed By: Wyatt Amos on 11-14-2024 Dacrocytes LM Ql (Bld) PAPER STRIPPER [facility] Total cell countOrdered By: Wyatt Amos on 11-14-2024 Cells counted Molgen (Bld/Tiss) [#] PAPER STRIPPER [facility] Total proteinOrdered By: Arron Amos on 11-14-2024 Protein [Mass/Vol] 7.4 g/dL 5.9-8.4 [facility] Toxic leukocyte granulation detectionOrdered By: Wyatt Amos on 11-14-2024 Toxic granules LM Ql (Bld) PAPER STRIPPER [facility] Urinalysis, Completeon 11-14 EPI,SQUAMOUS 0-5 SEEN Normal 5-10 [facility] Comment on above: Order Comment: BRUCE CTOR TO SPECIFY Performed By: #### L 400.0001, L5.0 ####[facility] [address] [place], [address] BACTERIA 0 SEEN Normal None Seen [facility] Comment on above: Order Comment: BRUCE CTOR TO SPECIFY Performed By: #### L 400.0001, L501.0 ####[facility] [address] [place], [address] Mucus Ql (Urine sed) 0 SEEN Normal [facility] Comment on above: Order Comment: BRUCE CTOR TO SPECIFY Performed By: #### L 400.0001, L5.1929 ####[facility] [address] [place], [address] RBC 0 SEEN Normal 0-5 [facility] Comment on above: Order Comment: BRUCE CTOR TO SPECIFY Performed By: #### L 400.0001, L50 ####[facility] [address] [place], [address] WBC 0 SEEN Normal 0-5 [facility] Comment on above: Order Comment: BRUCE CTOR TO SPECIFY Performed By: #### L 400.0001, L5 ####[facility] [address] [place], [address] Urine clarityOrdered By: Arron Amos on 11-14-2024 Clarity (U) Clear Clear [facility] Urine color determinationOrd ered By: Wyatt Amos on 11-14-2024 Color (U) Yellow Yellow [facility] Urine glucose detectionOrder ed By: Wyatt Amos on 11-14-2024 Glucose Ql (U) Normal mg/dl Normal [facility] Urine leukocyte esterase det ection by dipstickOrdered By: Wyatt Amos on 11-14-2024 Leukocyte esterase Test strip Ql (U) Negative Negative [facility] Urine pHOrdered By: Wyatt Posada on 11-14-2024 pH (U) 6.0 [pH] 5.0 - 8.0 [facility] Urine protein measurement (m ass/volume)Ordered By: Wyatt Amos on 11-14-2024 Protein (U) [Mass/Vol] 6.9 mg/dL 0.0-12.0 [facility] Urine sediment bacteria coun t by microscopy (number/high power field)Ordered By: Wyatt Amos on 11-14-2024 Bacteria LM.HPF (Urine sed) [#/Area] 0 /[HPF] None Seen [facility] Urine specific gravity measu rementOrdered By: Wyatt Amos on 11-14-2024 Specific gravity (U) [Rel density] 1.015 1.002-1.030 [facility] Urine urobilinogen measureme ntOrdered By: Wyatt Amos on 11-14-2024 Urobilinogen Ql (U) Normal mg/dl Normal [facility] White blood cell (WBC) count Ordered By: Wyatt Amos on 11-14-2024 WBC (Bld) [#/Vol] 8.8 10*3/uL 4.4-11.0 [facility] White blood cell countOrdere d By: Wyatt Amos on 11-14-2024 White blood cell count 0 SEEN /hpf 0-5 [facility] Whole blood erythrocyte morp hology identificationOrdered By: Wyatt Mariscal on 11-14-2024 RBC morphology finding Nom (Bld) PAPER STRIPPER [facility] Whole blood hypersegmented n eutrophils detection by light microscopyOrdered By: Wyatt Amos on 11-14-2024 Neutrophils.hypersegment ed LM Ql (Bld) PAPER STRIPPER [facility] Whole blood ovalocyte detect ion by light microscopyOrdered By: Wyatt chetan Mariscal on 11-14-2024 Ovalocytes LM Ql (Bld) PAPER STRIPPER [facility] Whole blood smudge cell dete ction by light microscopyOrdered By: [facility] on 11-14-2024 Smudge cells LM Ql (Bld) PAPER STRIPPER [facility] Whole blood target cell dete ction by light microscopyOrdered By: [facility] Mariscal on 11-14-2024 Target cells LM Ql (Bld) PAPER STRIPPER [facility] Urine Cultureon 11-13-2024 URC Culture exhibits no growth. Normal [facility] Comment on above: Performed By: #### M 100.2200, L400.0001 ####[facility] [address] [place], [place], [id number] Absolute lymphocyte countOrd ered By: Randy Cabrales on 11-12-2024 Lymphocytes Auto (Unsp spec) [#/Vol] 2.81 10*3/uL 0.83-4.51 [facility] Anion gap in Serum or Plasma Ordered By: Randy Cabrales on 11-12-2024 Anion gap [Moles/Vol] 11 mmol/L 5-15 [facility] Automated lymphocyte count a s percentage of total leukocytesOrdered By: Randy Cabrales on 11-12-2024 Lymphocytes/100 WBC Auto (Unsp spec) 24.2 % 19-41 [facility] BUN/creatinine ratioOrdered By: Randy Cabrales on 11-12-2024 Urea nitrogen/Creatinine [Mass ratio] 12.8 mg/mg 10- [facility] Basic Metabolic Profile (BMP )on 11-12-2024 BUN/CRE 12.8 RATIO Normal - [facility] Comment on above: Performed By: #### L 500.2500, L100.0100 ####[facility] [address] [place], [place], [id number] Calcium [Mass/Vol] 9.4 mg/dL Normal 7.6-11.0 [facility] Comment on above: Performed By: #### L 500.2500, L100.0100 ####[facility] [address] [place], [address] Chloride [Moles/Vol] 105 mmol/L Normal 98-108 [facility] Comment on above: Performed By: #### L 500.2500, L100.0100 ####[facility] [address] [place], [address] CO2 [Moles/Vol] 23.7 mmol/L Normal 21.0-32.0 [facility] Comment on above: Performed By: #### L 500.2500, L100.0100 ####[facility] [address] [place], [address] Creatinine [Mass/Vol] 1.26 mg/dL High 0.70-1.20 [facility] Comment on above: Performed By: #### L 500.2500, L100.0100 ####[facility] [address] [place], [address] ECRCL 56.64 ml/min Normal 50-250 [facility] Comment on above: Performed By: #### L 500.2500, L100.0100 ####[facility] [address] [place], [address] GAP 11 Normal 5-15 [facility] Comment on above: Performed By: #### L 500.2500, L100.0100 ####[facility] [address] [place], [address] GFR/1.73 sq M.predicted among non-blacks MDRD (S/P/Bld) [Vol rate/Area] 48 mL/min/{1.73_m2} Low >60 [facility] Comment on above: Result Comment: mL/m in/1.73m2 CKD-EPI Creatinine Equation (2020) Performed By: #### L 500.2500, L100.0100 ####[facility] [address] [place], [address] Glucose [Mass/Vol] 136 mg/dL High 70-99 [facility] Comment on above: Performed By: #### L 500.2500, L100.0100 ####[facility] [address] [place], [address] Potassium [Moles/Vol] 3.8 mmol/L Normal 3.3-5.1 [facility] Comment on above: Performed By: #### L 500.2500, L100.0100 ####[facility] [address] [place], [address] Sodium [Moles/Vol] 140 mmol/L Normal 133-145 [facility] Comment on above: Performed By: #### L 500.2500, L100.0100 ####[facility] [address] [place], [address] Urea nitrogen [Mass/Vol] 16 mg/dL Normal 4-19 [facility] Comment on above: Performed By: #### L 500.2500, L100.0100 ####[facility] [address] [place], [address] Basophil percentageOrdered B y: Randy Cabrales on 11-12-2024 Basophils/100 WBC (Bld) 0.4 % 0-1 [facility] Bilirubin Test strip Ql (U)O rdered By: Randy Cabrales on 11-12-2024 Bilirubin Ql (U) Negative Negative [facility] CBC W/Diff, Automatedon 04-2 Absolute Lymph 2.81 X10 3/uL Normal 0.83-4.51 [facility] Comment on above: Performed By: #### L 500.2500, L100.0100 ####[facility] [address] [place], [address] Absolute Neut 7.5 X10 3/uL Normal 2.0-7.7 [facility] Comment on above: Performed By: #### L 500.2500, L100.0100 ####[facility] [address] [place], [address] Basophils/100 WBC (Bld) 0.4 % Normal 0-1 [facility] Comment on above: Performed By: #### L 500.2500, L100.0100 ####[facility] [address] [place], [address] Eosinophils/100 WBC (Bld) 2.8 % Normal 0-5 [facility] Comment on above: Performed By: #### L 500.2500, L100.0100 ####[facility] [address] [place], [address] Erythrocyte distribution width (RBC) [Ratio] 13.4 % Normal 11.6-14.6 [facility] Comment on above: Performed By: #### L 500.2500, L100.0100 ####[facility] [address] [place], [address] Hematocrit (Bld) [Volume fraction] 42.0 % Normal 37-47 [facility] Comment on above: Performed By: #### L 500.2500, L100.0100 ####[facility] [address] [place], [address] Hemoglobin (Bld) [Mass/Vol] 13.6 g/dL Normal 12.0-15.0 [facility] Comment on above: Performed By: #### L 500.2500, L100.0100 ####[facility] [address] [place], [address] IG% 0.300 Normal 0.0-0.9 [facility] Comment on above: Result Comment: IG% - Immature Granulocytes (promyelocytes, myelocytes andmetamyelocytes) > 1% indicates that a LEFT SHIFT is Present. Performed By: #### L 500.2500, L100.0100 ####[facility] [address] [place], [address] Lymphocytes/100 WBC (Bld) 24.2 % Normal 19-41 [facility] Comment on above: Performed By: #### L 500.2500, L100.0100 ####[facility] [address] [place], [address] MCH (RBC) [Entitic mass] 30.7 pg Normal 27.0-32.0 [facility] Comment on above: Performed By: #### L 500.2500, L100.0100 ####[facility] [address] [place], [address] MCHC (RBC) [Mass/Vol] 32.4 g/dL Normal 32-36 [facility] Comment on above: Performed By: #### L 500.2500, L100.0100 ####[facility] [address] [place], [address] MCV (RBC) [Entitic vol] 94.8 fL Normal 81-99 [facility] Comment on above: Performed By: #### L 500.2500, L100.0100 ####[facility] [address] [place], [address] Monocytes/100 WBC (Bld) 7.9 % Normal 0-10 [facility] Comment on above: Performed By: #### L 500.2500, L100.0100 ####[facility] [address] [place], [address] Neutrophils/100 WBC (Bld) 64.4 % Normal 47-70 [facility] Comment on above: Performed By: #### L 500.2500, L100.0100 ####[facility] [address] [place], [address] Nucleated RBC (Bld) [#/Vol] 0 10*3/uL Normal 0-5 [facility] Comment on above: Performed By: #### L 500.2500, L100.0100 ####[facility] [address] [place], [address] Platelet mean volume (Bld) [Entitic vol] 10.2 fL Normal 6.2-12.0 [facility] Comment on above: Performed By: #### L 500.2500, L100.0100 ####[facility] [address] [place], [address] Platelets (Bld) [#/Vol] 325 10*3/uL Normal 150-450 [facility] Comment on above: Performed By: #### L 500.2500, L100.0100 ####[facility] [address] [place], [address] RBC (Bld) [#/Vol] 4.43 10*6/uL Normal 4.2-5.4 [facility] Comment on above: Performed By: #### L 500.2500, L100.0100 ####[facility] [address] [place], [address] RDW SD 47.3 fl High 35.1-43.9 [facility] Comment on above: Performed By: #### L 500.2500, L100.0100 ####[facility] [address] [place], [address] WBC (Bld) [#/Vol] 11.6 10*3/uL High 4.4-11.0 [facility] Comment on above: Performed By: #### L 500.2500, L100.0100 ####[facility] [address] [place], [address] Carbon dioxide, total [Moles /volume] in Central venous bloodOrdered By: Randy Cabrales on 11-12-2024 CO2 [Moles/Vol] 23.7 mmol/L 21.0-32.0 [facility] Chloride assayOrdered By: Garry Cabrales on 11-12-2024 Chloride [Moles/Vol] 105 mmol/L 98-108 [facility] Emergency Department Summary on 11-12-2024 Emergency Department Summary Normal [facility] Eosinophil percentageOrdered By: Randy Cabrales on 11-12-2024 Eosinophils/100 WBC (Bld) 2.8 % 0-5 [facility] Erythrocyte distribution wid th ratioOrdered By: Randy Cabrales on 11-12-2024 Erythrocyte distribution width (RBC) [Ratio] 13.4 % 11.6-14.6 [facility] Erythrocyte distribution wid th standard deviationOrdered By: Randy Cabrales on 11-12-2024 Erythrocyte distribution width (RBC) [Ratio] 47.3 fl High 35.1-43.9 [facility] Glomerular filtration rate ( GFR) estimation/1.73 sq m using serum, plasma, or whole bOrdered By: Randy Cabrales on 11-12-2024 GFR/1.73 sq M.predicted among non-blacks MDRD (S/P/Bld) [Vol rate/Area] 48 mL/min/{1.73_m2} Low >60 [facility] Hematocrit Auto (Bld) [Volum e fraction]Ordered By: Randy Cabrales on 11-12-2024 Hematocrit (Bld) [Volume fraction] 42.0 % 37-47 [facility] Hemoglobin measurementOrdere d By: Randy Cabrales on 11-12-2024 Hemoglobin (Bld) [Mass/Vol] 13.6 g/dL 12.0-15.0 [facility] Immature granulocytes/100 WB C Auto (Bld)Ordered By: Randy Cabrales on 11-12-2024 Immature granulocytes/100 WBC (Bld) 0.300 % 0.0-0.9 [facility] Ketones Test strip Ql (U)Ord ered By: Randy Cabrales on 11-12-2024 Ketones Ql (U) Negative Negative [facility] MCV (mean corpuscular volume ) determinationOrdered By: Randy Cabrales on 11-12-2024 MCV (RBC) [Entitic vol] 94.8 fL 81-99 [facility] Mean corpuscular hemoglobin (MCH) determinationOrdered By: Randy Cabrales on 11-12-2024 MCH (RBC) [Entitic mass] 30.7 pg 27.0-32.0 [facility] Monocyte percentageOrdered B y: Randy Cabrales on 11-12-2024 Monocytes/100 WBC (Bld) 7.9 % 0-10 [facility] Mucus LM Ql (Urine sed)Order ed By: Randy Cabrales on 11-12-2024 Mucus Ql (Urine sed) 0 SEEN /hpf [facility] Neutrophil percentageOrdered By: Randy Cabrales on 11-12-2024 Neutrophils/100 WBC (Bld) 64.4 % 47-70 [facility] Nitrite Test strip Ql (U)Ord ered By: Randy Cabrales on 11-12-2024 Nitrite Ql (U) Negative Negative [facility] Platelet countOrdered By: Garry Cabrales on 11-12-2024 Platelets (Bld) [#/Vol] 325 10*3/uL 150-450 [facility] Potassium measurement (mass/ volume)Ordered By: Randy Cabrales on 11-12-2024 Potassium (Unsp spec) [Mass/Vol] 3.8 mmol/L 3.3-5.1 [facility] Protein Test strip Ql (U)Ord ered By: Randy Cabrales on 11-12-2024 Protein Ql (U) 30 mg/dl High Negative [facility] RBC Auto (Bld) [#/Vol]Ordere d By: Randy Cabrales on 11-12-2024 RBC (Bld) [#/Vol] 4.43 10*6/uL 4.2-5.4 [facility] Serum creatinine measurement (mass/volume)Ordered By: Randy Cabrales on 11-12-2024 Creatinine [Mass/Vol] 1.26 mg/dL High 0.70-1.20 [facility] Serum glucose measurement (m ass/volume)Ordered By: Randy Cabrales on 11-12-2024 Glucose [Mass/Vol] 136 mg/dL High 70-99 [facility] Serum or plasma calcium dane urement (mass/volume)Ordered By: Randy Cabrales on 11-12-2024 Calcium [Mass/Vol] 9.4 mg/dL 7.6-11.0 [facility] Serum or plasma urea nitroge n measurement (mass/volume)Ordered By: Randy Cabrales on 11-12-2024 Urea nitrogen [Mass/Vol] 16 mg/dL 4-19 [facility] Sodium levelOrdered By: Randy Cabrales on 11-12-2024 Sodium [Moles/Vol] 140 mmol/L 133-145 [facility] Squamous epithelial cells de tection in urine sediment by light microscopyOrdered By: Randy Cabrales on 11-12-2024 Epithelial cells.squamous LM Ql (Urine sed) 0 SEEN /hpf 5-10 [facility] Urinalysis, Completeon 11-12 BACTERIA 0 SEEN Normal None Seen [facility] Comment on above: Order Comment: BRUCE CTOR TO SPECIFY Performed By: #### M 100.2200, L400.0001 ####[facility] [address] [place], [address] EPI,SQUAMOUS 0 SEEN Normal 5- [facility] Comment on above: Order Comment: BRUCE CTOR TO SPECIFY Performed By: #### M 100.2200, L400.0001 ####[facility] [address] [place], [address] Mucus Ql (Urine sed) 0 SEEN Normal [facility] Comment on above: Order Comment: BRUCE CTOR TO SPECIFY Performed By: #### M 100.2200, L400.0001 ####[facility] [address] [place], [address] RBC 0 SEEN Normal 0-5 [facility] Comment on above: Order Comment: BRUCE CTOR TO SPECIFY Performed By: #### M 100.2200, L400.0001 ####[facility] [address] [place], [address] WBC 0 SEEN Normal 0-5 [facility] Comment on above: Order Comment: BRUCE CTOR TO SPECIFY Performed By: #### M 100.2200, L400.0001 ####[facility] [address] [place], [address] Urine clarityOrdered By: Barrett Cabrales on 11-12-2024 Clarity (U) Clear Clear [facility] Urine color determinationOrd ered By: Randy Cabrales on 11-12-2024 Color (U) Yellow Yellow [facility] Urine cultureOrdered By: Barrett Cabrales on 11-12-2024 Bacteria identified Cx Nom (U) Culture exhibits no growth. [facility] Urine glucose detectionOrder ed By: Randy Cabrales on 11-12-2024 Glucose Ql (U) Normal mg/dl Normal [facility] Urine leukocyte esterase det ection by dipstickOrdered By: Randy Cabrales on 11-12-2024 Leukocyte esterase Test strip Ql (U) Negative Negative [facility] Urine pHOrdered By: Randy gale on 11-12-2024 pH (U) 5.0 [pH] 5.0 - 8.0 [facility] Urine sediment bacteria coun t by microscopy (number/high power field)Ordered By: Randy Cabrales on 11-12-2024 Bacteria LM.HPF (Urine sed) [#/Area] 0 /[HPF] None Seen [facility] Urine specific gravity measu rementOrdered By: Randy Cabrales on 11-12-2024 Specific gravity (U) [Rel density] 1.020 1.002-1.030 [facility] Urine urobilinogen measureme ntOrdered By: Randy Cabrales on 11-12-2024 Urobilinogen Ql (U) Normal mg/dl Normal [facility] White blood cell (WBC) count Ordered By: Randy Cabrales on 11-12-2024 WBC (Bld) [#/Vol] 11.6 10*3/uL High 4.4-11.0 [facility] White blood cell countOrdere d By: Randy Cabrales on 11-12-2024 White blood cell count 0 SEEN /hpf 0-5 [facility] Culture, Blood (WB)on 2024 CUB Blood cultures x2, from two different sites No growth in 5 days. Normal [facility] Comment on above: Performed By: #### M 200.1000 ####[facility] [address] [place], [address] Bedside Glucoseon 11-07-2024 FINGERSTICK GLU 118 mg/dL High 74-106 [facility] Comment on above: Result Comment: BJ GEMENT OF PATIENT CARE PER NURSING PROTOCOL Performed By: #### L 501.080 ####[facility] [address] [place], [address] FINGERSTICK GLU 117 mg/dL High 74-106 [facility] Comment on above: Result Comment: BJ GEMENT OF PATIENT CARE PER NURSING PROTOCOL Performed By: #### L 501.080 ####[facility] [address] [facility] [address] FINGERSTICK GLU 100 mg/dL Normal -106 [facility] Comment on above: Result Comment: BJ GEMENT OF PATIENT CARE PER NURSING PROTOCOL Performed By: #### L 501.080 ####[facility] [address] [facility] [address] Discharge Instructionon 10-17 Discharge Instruction Normal [facility] Glucose measurement at [facility] deOrdered By: Azam Guillen on 11-07-2024 Glucose [Mass/Vol] 118 mg/dL High 74-106 [facility] Bedside Glucoseon 11-06-2024 FINGERSTICK GLU 99 mg/dL Normal -106 [facility] Comment on above: Result Comment: BJ GEMENT OF PATIENT CARE PER NURSING PROTOCOL Performed By: #### L 501.080 ####[facility] [address] [facility] [address] FINGERSTICK GLU 110 mg/dL High 74-106 [facility] Comment on above: Result Comment: BJ GEMENT OF PATIENT CARE PER NURSING PROTOCOL Performed By: #### L 501.080 ####[facility] [address] [place], [address] FINGERSTICK GLU 124 mg/dL High 74-106 [facility] Comment on above: Result Comment: BJ GEMENT OF PATIENT CARE PER NURSING PROTOCOL Performed By: #### L 501.080 ####[facility] [address] [place], [address] FINGERSTICK GLU 104 mg/dL Normal 74-106 [facility] Comment on above: Result Comment: BJ GEMENT OF PATIENT CARE PER NURSING PROTOCOL Performed By: #### L 501.080 ####[facility] [address] [place], [address] Urine Cultureon 11-06-2024 URC Normal [facility] Comment on above: Performed By: #### M 100.2200 ####[facility] [address] [place], [address] Absolute lymphocyte countOrd ered By: Lauren Vela on 11-05-2024 Lymphocytes Auto (Unsp spec) [#/Vol] 2.47 10*3/uL 0.83-4.51 [facility] Anion gap in Serum or Plasma Ordered By: Lauren Dane on 11-05-2024 Anion gap [Moles/Vol] 12 mmol/L 5-15 [facility] Automated lymphocyte count a s percentage of total leukocytesOrdered By: [facility] Dane on 11-05-2024 Lymphocytes/100 WBC Auto (Unsp spec) 31.5 % 19-41 [facility] BUN/creatinine ratioOrdered By: [facility] Dane on 11-05-2024 Urea nitrogen/Creatinine [Mass ratio] 10.6 mg/mg 10-20 [facility] Basophil percentageOrdered B y: Lauren Dane on 11-05-2024 Basophils/100 WBC (Bld) 0.3 % 0-1 [facility] Bedside Glucoseon 11-05-2024 FINGERSTICK GLU 101 mg/dL Normal 74-106 [facility] Comment on above: Result Comment: BJ GEMENT OF PATIENT CARE PER NURSING PROTOCOL Performed By: #### L 501.080 ####[facility] [address] [place], [address] FINGERSTICK GLU 111 mg/dL High 74-106 [facility] Comment on above: Result Comment: BJ GEMENT OF PATIENT CARE PER NURSING PROTOCOL Performed By: #### L 501.080 ####[facility] [address] [place], [address] FINGERSTICK GLU 120 mg/dL High 74-106 [facility] Comment on above: Result Comment: BJ GEMENT OF PATIENT CARE PER NURSING PROTOCOL Performed By: #### L 501.080 ####[facility] [address] [place], [address] FINGERSTICK GLU 103 mg/dL Normal 74-106 [facility] Comment on above: Result Comment: BJ GEMENT OF PATIENT CARE PER NURSING PROTOCOL Performed By: #### L 501.080 ####[facility] [address] [place], [address] Bilirubin, totalOrdered By: Lauren Vela on 11-05-2024 Bilirubin [Mass/Vol] 0.73 mg/dL 0.00-1.30 [facility] CBC W/Diff, Automatedon 10-17 Absolute Lymph 2.47 X10 3/uL Normal 0.83-4.51 [facility] Comment on above: Performed By: #### L 501.9985, L100.0100, L500.4050 ####[facility] [address] [place], [address] Absolute Neut 4.3 X10 3/uL Normal 2.0-7.7 [facility] Comment on above: Performed By: #### L 501.9985, L100.0100, L500.4050 ####[facility] [address] [place], [address] Basophils/100 WBC (Bld) 0.3 % Normal 0-1 [facility] Comment on above: Performed By: #### L 501.9985, L100.0100, L500.4050 ####[facility] [address] [place], [address] Eosinophils/100 WBC (Bld) 4.9 % Normal 0-5 [facility] Comment on above: Performed By: #### L 501.9985, L100.0100, L500.4050 ####[facility] [address] [place], [address] Erythrocyte distribution width (RBC) [Ratio] 13.3 % Normal 11.6-14.6 [facility] Comment on above: Performed By: #### L 501.9985, L100.0100, L500.4050 ####[facility] [address] [place], [address] Hematocrit (Bld) [Volume fraction] 38.7 % Normal 37-47 [facility] Comment on above: Performed By: #### L 501.9985, L100.0100, L500.4050 ####[facility] [address] [place], [address] Hemoglobin (Bld) [Mass/Vol] 12.4 g/dL Normal 12.0-15.0 [facility] Comment on above: Performed By: #### L 501.9985, L100.0100, L500.4050 ####[facility] [address] [place], [address] IG% 0.300 Normal 0.0-0.9 [facility] Comment on above: Result Comment: IG% - Immature Granulocytes (promyelocytes, myelocytes andmetamyelocytes) > 1% indicates that a LEFT SHIFT is Present. Performed By: #### L 501.9985, L100.0100, L500.4050 ####[facility] [address] [place], [address] Lymphocytes/100 WBC (Bld) 31.5 % Normal 19-41 [facility] Comment on above: Performed By: #### L 501.9985, L100.0100, L500.4050 ####[facility] [address] [place], [address] MCH (RBC) [Entitic mass] 30.7 pg Normal 27.0-32.0 [facility] Comment on above: Performed By: #### L 501.9985, L100.0100, L500.4050 ####[facility] [address] [place], [address] MCHC (RBC) [Mass/Vol] 32.0 g/dL Normal 32-36 [facility] Comment on above: Performed By: #### L 501.9985, L100.0100, L500.4050 ####[facility] [address] [place], [address] MCV (RBC) [Entitic vol] 95.8 fL Normal 81-99 [facility] Comment on above: Performed By: #### L 501.9985, L100.0100, L500.4050 ####[facility] [address] [place], [address] Monocytes/100 WBC (Bld) 8.8 % Normal 0-10 [facility] Comment on above: Performed By: #### L 501.9985, L100.0100, L500.4050 ####[facility] [address] [place], [address] Neutrophils/100 WBC (Bld) 54.2 % Normal 47-70 [facility] Comment on above: Performed By: #### L 501.9985, L100.0100, L500.4050 ####[facility] [address] [place], [address] Nucleated RBC (Bld) [#/Vol] 0 10*3/uL Normal 0-5 [facility] Comment on above: Performed By: #### L 501.9985, L100.0100, L500.4050 ####[facility] [address] [place], [address] Platelet mean volume (Bld) [Entitic vol] 10.8 fL Normal 6.2-12.0 [facility] Comment on above: Performed By: #### L 501.9985, L100.0100, L500.4050 ####[facility] [address] [place], [address] Platelets (Bld) [#/Vol] 243 10*3/uL Normal 150-450 [facility] Comment on above: Performed By: #### L 501.9985, L100.0100, L500.4050 ####[facility] [address] [place], [address] RBC (Bld) [#/Vol] 4.04 10*6/uL Low 4.2-5.4 [facility] Comment on above: Performed By: #### L 501.9985, L100.0100, L500.4050 ####[facility] [address] [place], [address] RDW SD 47.1 fl High 35.1-43.9 [facility] Comment on above: Performed By: #### L 501.9985, L100.0100, L500.4050 ####[facility] [address] [place], [address] WBC (Bld) [#/Vol] 7.8 10*3/uL Normal 4.4-11.0 [facility] Comment on above: Performed By: #### L 501.9985, L100.0100, L500.4050 ####[facility] [address] [place], [address] Carbon dioxide, total [Moles /volume] in Central venous bloodOrdered By: Lauren Vela on 11-05-2024 CO2 [Moles/Vol] 21.1 mmol/L 21.0-32.0 [facility] Chloride assayOrdered By: Nano Vela on 11-05-2024 Chloride [Moles/Vol] 107 mmol/L 98-108 [facility] Comprehensive Metabolic Prof ilon 11-05-2024 Albumin [Mass/Vol] 3.3 g/dL Low 3.4-4.8 [facility] Comment on above: Performed By: #### L 501.9985, L100.0100, L500.4050 ####[facility] [address] [place], [address] Albumin/Globulin [Mass ratio] 1.2 {ratio} Normal 0.9-2.4 [facility] Comment on above: Performed By: #### L 501.9985, L100.0100, L500.4050 ####[facility] [address] [place], [address] ALK PHOS 65 U/L Normal 35-104 [facility] Comment on above: Performed By: #### L 501.9985, L100.0100, L500.4050 ####[facility] [address] [place], [address] ALT [Catalytic activity/Vol] 12 U/L Normal <=34 [facility] Comment on above: Performed By: #### L 501.9985, L100.0100, L500.4050 ####[facility] [address] [place], [address] AST [Catalytic activity/Vol] 19 U/L Normal <=31 [facility] Comment on above: Performed By: #### L 501.9985, L100.0100, L500.4050 ####[facility] [address] [place], [address] Bilirubin [Mass/Vol] 0.73 mg/dL Normal 0.00-1.30 [facility] Comment on above: Performed By: #### L 501.9985, L100.0100, L500.4050 ####[facility] [address] [place], [address] BUN/CRE 10.6 RATIO Normal 10-20 [facility] Comment on above: Performed By: #### L 501.9985, L100.0100, L500.4050 ####[facility] [address] [place], [address] Calcium [Mass/Vol] 8.7 mg/dL Normal 7.6-11.0 [facility] Comment on above: Performed By: #### L 501.9985, L100.0100, L500.4050 ####[facility] [address] [place], [address] Chloride [Moles/Vol] 107 mmol/L Normal 98-108 [facility] Comment on above: Performed By: #### L 501.9985, L100.0100, L500.4050 ####[facility] [address] [place], [address] CO2 [Moles/Vol] 21.1 mmol/L Normal 21.0-32.0 [facility] Comment on above: Performed By: #### L 501.9985, L100.0100, L500.4050 ####[facility] [address] [place], [address] Creatinine [Mass/Vol] 1.37 mg/dL High 0.70-1.20 [facility] Comment on above: Performed By: #### L 501.9985, L100.0100, L500.4050 ####[facility] [address] [place], [address] ECRCL 50.91 ml/min Normal 50-250 [facility] Comment on above: Performed By: #### L 501.9985, L100.0100, L500.4050 ####[facility] [address] [place], [address] GAP 12 Normal 5-15 [facility] Comment on above: Performed By: #### L 501.9985, L100.0100, L500.4050 ####[facility] [address] [place], [address] GFR/1.73 sq M.predicted among non-blacks MDRD (S/P/Bld) [Vol rate/Area] 44 mL/min/{1.73_m2} Low >60 [facility] Comment on above: Result Comment: mL/m in/1.73m2 CKD-EPI Creatinine Equation (2020) Performed By: #### L 501.9985, L100.0100, L500.4050 ####[facility] [address] [place], [address] Globulin (S) [Mass/Vol] 2.7 g/dL Normal 2.2-4.2 [facility] Comment on above: Performed By: #### L 501.9985, L100.0100, L500.4050 ####[facility] [address] [place], [address] Glucose [Mass/Vol] 96 mg/dL Normal 70-99 [facility] Comment on above: Performed By: #### L 501.9985, L100.0100, L500.4050 ####[facility] [address] [place], [address] Potassium [Moles/Vol] 3.4 mmol/L Normal 3.3-5.1 [facility] Comment on above: Performed By: #### L 501.9985, L100.0100, L500.4050 ####[facility] [address] [place], [address] Sodium [Moles/Vol] 140 mmol/L Normal 133-145 [facility] Comment on above: Performed By: #### L 501.9985, L100.0100, L500.4050 ####[facility] [address] [place], [address] T PROT 6.0 g/dL Normal 5.9-8.4 [facility] Comment on above: Performed By: #### L 501.9985, L100.0100, L500.4050 ####[facility] [address] [place], [place], [id number] Urea nitrogen [Mass/Vol] 15 mg/dL Normal 4-19 [facility] Comment on above: Performed By: #### L 501.9985, L100.0100, L500.4050 ####[facility] [address] [place], [address] Eosinophil percentageOrdered By: [facility] Dane on 11-05-2024 Eosinophils/100 WBC (Bld) 4.9 % 0-5 [facility] Erythrocyte distribution wid th ratioOrdered By: [facility] Dane on 11-05-2024 Erythrocyte distribution width (RBC) [Ratio] 13.3 % 11.6-14.6 [facility] Erythrocyte distribution wid th standard deviationOrdered By: [facility] Dane on 11-05-2024 Erythrocyte distribution width (RBC) [Ratio] 47.1 fl High 35.1-43.9 [facility] Glomerular filtration rate ( GFR) estimation/1.73 sq m using serum, plasma, or whole bOrdered By: [facility] Dane on 11-05-2024 GFR/1.73 sq M.predicted among non-blacks MDRD (S/P/Bld) [Vol rate/Area] 44 mL/min/{1.73_m2} Low >60 [facility] Hematocrit Auto (Bld) [Volum e fraction]Ordered By: Lauren Vela on 11-05-2024 Hematocrit (Bld) [Volume fraction] 38.7 % 37-47 [facility] Hemoglobin A1con 11-05-2024 HbA1c (Bld) [Mass fraction] 6.0 % High <=5.6 [facility] Comment on above: Result Comment: Norm al < 5.7 % Prediabetic 5.7 - 6.4 % Diabetic >or= 6.5 % Please note range changes. Performed By: #### L 501.9985, L100.0100, L500.4050 ####[facility] [address] [place], [address] Hemoglobin A1c percentageOrd ered By: Lauren Vela on 11-05-2024 HbA1c (Bld) [Mass fraction] 6.0 % High <5.7 [facility] Hemoglobin measurementOrdere d By: Lauren Vela on 11-05-2024 Hemoglobin (Bld) [Mass/Vol] 12.4 g/dL 12.0-15.0 [facility] Immature granulocytes/100 WB C Auto (Bld)Ordered By: Lauren Vela on 11-05-2024 Immature granulocytes/100 WBC (Bld) 0.300 % 0.0-0.9 [facility] MCV (mean corpuscular volume ) determinationOrdered By: Lauren Vela on 11-05-2024 MCV (RBC) [Entitic vol] 95.8 fL 81-99 [facility] Mean corpuscular hemoglobin (MCH) determinationOrdered By: Lauren Dane on 11-05-2024 MCH (RBC) [Entitic mass] 30.7 pg 27.0-32.0 [facility] Monocyte percentageOrdered B y: Lauren Dane on 11-05-2024 Monocytes/100 WBC (Bld) 8.8 % 0-10 [facility] Neutrophil percentageOrdered By: Dane on 11-05-2024 Neutrophils/100 WBC (Bld) 54.2 % 47-70 [facility] No Panel InformationOrdered By: Lauren Vela on 11-05-2024 19 U/L <32 [facility] Platelet countOrdered By: Nano Vela on 11-05-2024 Platelets (Bld) [#/Vol] 243 10*3/uL 150-450 [facility] Potassium measurement (mass/ volume)Ordered By: Lauren Vela on 11-05-2024 Potassium (Unsp spec) [Mass/Vol] 3.4 mmol/L 3.3-5.1 [facility] RBC Auto (Bld) [#/Vol]Ordere d By: Lauren Vela on 11-05-2024 RBC (Bld) [#/Vol] 4.04 10*6/uL Low 4.2-5.4 [facility] Serum creatinine measurement (mass/volume)Ordered By: Lauren Vela on 11-05-2024 Creatinine [Mass/Vol] 1.37 mg/dL High 0.70-1.20 [facility] Serum globulin measurementOr dered By: Lauren Vela on 11-05-2024 Globulin (S) [Mass/Vol] 2.7 g/dL 2.2-4.2 [facility] Serum glucose measurement (m ass/volume)Ordered By: Lauren Vela on 11-05-2024 Glucose [Mass/Vol] 96 mg/dL 70-99 [facility] Serum or plasma alanine obregon otransferase (ALT) measurementOrdered By: Lauren Vela on 11-05-2024 ALT [Catalytic activity/Vol] 12 U/L <35 [facility] Serum or plasma albumin dane urement (mass/volume)Ordered By: Lauren Vela on 11-05-2024 Albumin [Mass/Vol] 3.3 g/dL Low 3.4-4.8 [facility] Serum or plasma albumin/glob ulin mass ratioOrdered By: Lauren Vela on 11-05-2024 Albumin/Globulin [Mass ratio] 1.2 {ratio} 0.9-2.4 [facility] Serum or plasma alkaline ruddy sphatase measurementOrdered By: Lauren Vela on 11-05-2024 ALP [Catalytic activity/Vol] 65 U/L 35-104 [facility] Serum or plasma calcium dane urement (mass/volume)Ordered By: Lauren Vela on 11-05-2024 Calcium [Mass/Vol] 8.7 mg/dL 7.6-11.0 [facility] Serum or plasma urea nitroge n measurement (mass/volume)Ordered By: Lauren Vela on 11-05-2024 Urea nitrogen [Mass/Vol] 15 mg/dL 4-19 [facility] Sodium levelOrdered By: Margau mn Dane on 11-05-2024 Sodium [Moles/Vol] 140 mmol/L 133-145 [facility] Total proteinOrdered By: Marga umn Dane on 11-05-2024 Protein [Mass/Vol] 6.0 g/dL 5.9-8.4 [facility] White blood cell (WBC) count Ordered By: Lauren Vela on 11-05-2024 WBC (Bld) [#/Vol] 7.8 10*3/uL 4.4-11.0 [facility] Absolute neutrophil countOrd ered By: Rebecca De Santiago on 11-04-2024 Neutrophils (Bld) [#/Vol] 6.9 10*3/uL 2.0-7.7 [facility] Anion gap in Serum or Plasma Ordered By: Rebecca De Santiago on 11-04-2024 Anion gap [Moles/Vol] 11 mmol/L 5-15 [facility] BUN/creatinine ratioOrdered By: Rebecca De Santiago on 11-04-2024 Urea nitrogen/Creatinine [Mass ratio] 8.9 mg/mg Low - [facility] Basic Metabolic Profile (BMP )on 11-04-2024 BUN/CRE 8.9 RATIO Low 05-06 [facility] Comment on above: Performed By: #### L 500.2500, L100.0100 ####[facility] [address] [place], [address] Calcium [Mass/Vol] 9.3 mg/dL Normal 7.6-11.0 [facility] Comment on above: Performed By: #### L 500.2500, L100.0100 ####[facility] [address] [place], [address] Chloride [Moles/Vol] 105 mmol/L Normal 98-108 [facility] Comment on above: Performed By: #### L 500.2500, L100.0100 ####[facility] [address] [place], [address] CO2 [Moles/Vol] 26.2 mmol/L Normal 21.0-32.0 [facility] Comment on above: Performed By: #### L 500.2500, L100.0100 ####[facility] [address] [place], [address] Creatinine [Mass/Vol] 1.48 mg/dL High 0.70-1.20 [facility] Comment on above: Performed By: #### L 500.2500, L100.0100 ####[facility] [address] [place], [address] ECRCL 47.80 ml/min Low 50-250 [facility] Comment on above: Performed By: #### L 500.2500, L100.0100 ####[facility] [address] [place], [address] GAP 11 Normal 5-15 [facility] Comment on above: Performed By: #### L 500.2500, L100.0100 ####[facility] [address] [place], [address] GFR/1.73 sq M.predicted among non-blacks MDRD (S/P/Bld) [Vol rate/Area] 40 mL/min/{1.73_m2} Low >60 [facility] Comment on above: Result Comment: mL/m in/1.73m2 CKD-EPI Creatinine Equation (2020) Performed By: #### L 500.2500, L100.0100 ####[facility] [address] [place], [address] Glucose [Mass/Vol] 117 mg/dL High 70-99 [facility] Comment on above: Performed By: #### L 500.2500, L100.0100 ####[facility] [address] [place], [address] Potassium [Moles/Vol] 3.7 mmol/L Normal 3.3-5.1 [facility] Comment on above: Performed By: #### L 500.2500, L100.0100 ####[facility] [address] [place], [address] Sodium [Moles/Vol] 142 mmol/L Normal 133-145 [facility] Comment on above: Performed By: #### L 500.2500, L100.0100 ####[facility] [address] [place], [address] Urea nitrogen [Mass/Vol] 13 mg/dL Normal 4-19 [facility] Comment on above: Performed By: #### L 500.2500, L100.0100 ####[facility] [address] [place], [address] Basophil percentageOrdered B y: Rebecca De Santiago on 11-04-2024 Basophils/100 WBC (Bld) 0.2 % 0-1 [facility] Bedside Glucoseon 11-04-2024 FINGERSTICK GLU 114 mg/dL High 74-106 [facility] Comment on above: Result Comment: BJ GEMENT OF PATIENT CARE PER NURSING PROTOCOL Performed By: #### L 501.080 ####[facility] [address] [place], [address] FINGERSTICK GLU 94 mg/dL Normal 74-106 [facility] Comment on above: Result Comment: BJ GEMENT OF PATIENT CARE PER NURSING PROTOCOL Performed By: #### L 501.080 ####[facility] [address] [place], [address] Bilirubin Test strip Ql (U)O rdered By: Rebecca De Santiago on 11-04-2024 Bilirubin Ql (U) Negative Negative [facility] Blood cultureOrdered By: Issa Chapin on 11-04-2024 Bacteria identified Cx Nom (Bld) No growth in 5 days. [facility] Bacteria identified Cx Nom (Bld) No growth in 5 days. [facility] CBC W/Diff, Automatedon - Absolute Lymph 1.90 X10 3/uL Normal 0.83-4.51 [facility] Comment on above: Performed By: #### L 500.2500, L100.0100 ####[facility] [address] [place], [address] Absolute Neut 6.9 X10 3/uL Normal 2.0-7.7 [facility] Comment on above: Performed By: #### L 500.2500, L100.0100 ####[facility] [address] [place], [address] Basophils/100 WBC (Bld) 0.2 % Normal 0-1 [facility] Comment on above: Performed By: #### L 500.2500, L100.0100 ####[facility] [address] [place], [address] Eosinophils/100 WBC (Bld) 2.9 % Normal 0-5 [facility] Comment on above: Performed By: #### L 500.2500, L100.0100 ####[facility] [address] [place], [address] Erythrocyte distribution width (RBC) [Ratio] 13.2 % Normal 11.6-14.6 [facility] Comment on above: Performed By: #### L 500.2500, L100.0100 ####[facility] [address] [place], [address] Hematocrit (Bld) [Volume fraction] 43.9 % Normal 37-47 [facility] Comment on above: Performed By: #### L 500.2500, L100.0100 ####[facility] [address] [place], [address] Hemoglobin (Bld) [Mass/Vol] 14.4 g/dL Normal 12.0-15.0 [facility] Comment on above: Performed By: #### L 500.2500, L100.0100 ####[facility] [address] [place], [address] IG% 0.200 Normal 0.0-0.9 [facility] Comment on above: Result Comment: IG% - Immature Granulocytes (promyelocytes, myelocytes andmetamyelocytes) > 1% indicates that a LEFT SHIFT is Present. Performed By: #### L 500.2500, L100.0100 ####[facility] [address] [place], [address] Lymphocytes/100 WBC (Bld) 19.2 % Normal 19-41 [facility] Comment on above: Performed By: #### L 500.2500, L100.0100 ####[facility] [address] [place], [address] MCH (RBC) [Entitic mass] 31.2 pg Normal 27.0-32.0 [facility] Comment on above: Performed By: #### L 500.2500, L100.0100 ####[facility] [address] [place], [address] MCHC (RBC) [Mass/Vol] 32.8 g/dL Normal 32-36 [facility] Comment on above: Performed By: #### L 500.2500, L100.0100 ####[facility] [address] [place], [address] MCV (RBC) [Entitic vol] 95.0 fL Normal 81-99 [facility] Comment on above: Performed By: #### L 500.2500, L100.0100 ####[facility] [address] [place], [address] Monocytes/100 WBC (Bld) 7.3 % Normal 0-10 [facility] Comment on above: Performed By: #### L 500.2500, L100.0100 ####[facility] [address] [place], [address] Neutrophils/100 WBC (Bld) 70.2 % High 47-70 [facility] Comment on above: Performed By: #### L 500.2500, L100.0100 ####[facility] [address] [place], [address] Nucleated RBC (Bld) [#/Vol] 0 10*3/uL Normal 0-5 [facility] Comment on above: Performed By: #### L 500.2500, L100.0100 ####[facility] [address] [place], [address] Platelet mean volume (Bld) [Entitic vol] 10.3 fL Normal 6.2-12.0 [facility] Comment on above: Performed By: #### L 500.2500, L100.0100 ####[facility] [address] [place], [address] Platelets (Bld) [#/Vol] 261 10*3/uL Normal 150-450 [facility] Comment on above: Performed By: #### L 500.2500, L100.0100 ####[facility] [address] [place], [address] RBC (Bld) [#/Vol] 4.62 10*6/uL Normal 4.2-5.4 [facility] Comment on above: Performed By: #### L 500.2500, L100.0100 ####[facility] [address] [place], [address] RDW SD 46.8 fl High 35.1-43.9 [facility] Comment on above: Performed By: #### L 500.2500, L100.0100 ####[facility] [address] [place], [address] WBC (Bld) [#/Vol] 9.9 10*3/uL Normal 4.4-11.0 [facility] Comment on above: Performed By: #### L 500.2500, L100.0100 ####[facility] [address] [place], [address] Carbon dioxide, total [Moles /volume] in Central venous bloodOrdered By: Rebecca De Santiago on 11-04-2024 CO2 [Moles/Vol] 26.2 mmol/L 21.0-32.0 [facility] Chloride assayOrdered By: Latisha De Santiago on 11-04-2024 Chloride [Moles/Vol] 105 mmol/L 98-108 [facility] Emergency Department Summary on 11-04-2024 Emergency Department Summary Normal [facility] Eosinophil percentageOrdered By: Rebecca De Santiago on 11-04-2024 Eosinophils/100 WBC (Bld) 2.9 % 0-5 [facility] Epithelial cells.squamous LM Ql (Urine sed)Ordered By: Rebecca De Santiago on 11-04-2024 Epithelial cells.squamous LM.HPF (Urine sed) [#/Area] 0 /[HPF] 5-10 [facility] Erythrocyte distribution wid th (RBC) [Ratio]Ordered By: Rebecca De Santiago on 11-04-2024 Erythrocyte distribution width (RBC) [Entitic vol] 46.8 fL High 35.1-43.9 [facility] Erythrocyte distribution wid th ratioOrdered By: Rebecca De Santiago on 11-04-2024 Erythrocyte distribution width (RBC) [Ratio] 13.2 % 11.6-14.6 [facility] Estimation of creatinine julee aranceOrdered By: Rebecca De Santiago on 11-04-2024 Estimated Creatinine Clearance Calc 47.80 ml/min Low 50-250 [facility] GFR/1.73 sq M.predicted yu g non-blacks MDRD (S/P/Bld) [Vol rate/Area]Ordered By: Rebecca De Santiago on 11-04-2024 Estimated GFR (MDRD) Non-Af Amer 40 Low >60 [facility] Comment on above: mL/min/1.73m2 CKD-EP I Creatinine Equation (2020) Glucose Ql (U)Ordered By: Latisha De Santiago on 11-04-2024 Urine Glucose (UA) Normal mg/dl Normal [facility] H AND P Exam - Hospitaliston 11-04-2024 H&P Exam - Hospitalist Normal [facility] Hematocrit Auto (Bld) [Volum e fraction]Ordered By: Rebecca De Santiago on 11-04-2024 Hematocrit (Bld) [Volume fraction] 43.9 % 37-47 [facility] Hemoglobin measurementOrdere d By: Rebecca De Santiago on 11-04-2024 Hemoglobin (Bld) [Mass/Vol] 14.4 g/dL 12.0-15.0 [facility] Immature granulocytes/100 WB C Auto (Bld)Ordered By: Rebecca De Santiago on 11-04-2024 Immature granulocytes/100 WBC (Bld) 0.200 % 0.0-0.9 [facility] Comment on above: IG% - Immature Granu locytes (promyelocytes, myelocytes and metamyelocytes) > 1% indicates that a LEFT SHIFT is Present. Ketones Test strip Ql (U)Ord ered By: Rebecca De Santiago on 11-04-2024 Ketones Ql (U) Negative Negative [facility] Lymphocytes Auto (Unsp spec) [#/Vol]Ordered By: Rebecca De Santiago on 11-04-2024 Lymphocytes (Bld) [#/Vol] 1.90 10*3/uL 0.83-4.51 [facility] Lymphocytes/100 WBC Auto (Un sp spec)Ordered By: Rebecca De Santiago on 11-04-2024 Lymphocytes/100 WBC (Bld) 19.2 % 19-41 [facility] MCV (mean corpuscular volume ) determinationOrdered By: Rebecca De Santiago on 11-04-2024 MCV (RBC) [Entitic vol] 95.0 fL 81-99 [facility] Magnesiumon 11-04-2024 Magnesium [Mass/Vol] 1.9 mg/dL Normal 1.5-2.2 [facility] Comment on above: Order Comment: Comme nts: May add to ED labsComments: may add to ED labs Performed By: #### L 501.2300, L501.5200 ####[facility] [address] [place], [address] Magnesium (Unsp spec) [Mass/ Vol]Ordered By: Lauren Vela on 11-04-2024 Magnesium [Mass/Vol] 1.9 mg/dL 1.5-2.2 [facility] Magnesium measurement (mass/ volume)Ordered By: Lauren Vela on 11-04-2024 Magnesium (Unsp spec) [Mass/Vol] 1.9 mg/dL 1.5-2.2 [facility] Mean corpuscular hemoglobin (MCH) determinationOrdered By: Rebecca De Santiago on 11-04-2024 MCH (RBC) [Entitic mass] 31.2 pg 27.0-32.0 [facility] Mean corpuscular hemoglobin concentration (MCHC) determinationOrdered By: Rebecca De Santiago on 11-04-2024 MCHC (RBC) [Mass/Vol] 32.8 g/dL 32-36 [facility] Mean platelet volume determi nationOrdered By: Rebecca De Santiago on 11-04-2024 Platelet mean volume (Bld) [Entitic vol] 10.3 fL 6.2-12.0 [facility] Microscopic analysis of urin e for red blood cells (RBC)Ordered By: Rebecca De Santiago on 11-04-2024 Urine RBC 0 SEEN /hpf 0-5 [facility] Monocyte percentageOrdered B y: Rebecca De Santiago on 11-04-2024 Monocytes/100 WBC (Bld) 7.3 % 0-10 [facility] Mucus LM Ql (Urine sed)Order ed By: Rebecca De Santiago on 11-04-2024 Mucus Ql (Urine sed) 0 SEEN /hpf [facility] Neutrophil percentageOrdered By: Rebecca De Santiago on 11-04-2024 Neutrophils/100 WBC (Bld) 70.2 % High 47-70 [facility] Nitrite Test strip Ql (U)Ord ered By: Rebecca De Santiago on 11-04-2024 Nitrite Ql (U) Positive High Negative [facility] Nucleated red blood cell per centageOrdered By: Rebecca De Santiago on 11-04-2024 Nucleated RBC/100 WBC (Bld) [Ratio] 0 % 0-5 [facility] Phosphoruson 11-04-2024 Phosphate [Mass/Vol] 4.0 mg/dL Normal 2.7-4.5 [facility] Comment on above: Order Comment: Comme nts: May add to ED labsComments: may add to ED labs Performed By: #### L 501.2300, L501.5200 ####[facility] [address] [place], [place], [id number] Platelet countOrdered By: Latisha De Santiago on 11-04-2024 Platelets (Bld) [#/Vol] 261 10*3/uL 150-450 [facility] Potassium (Unsp spec) [Mass/ Vol]Ordered By: Rebecca De Santiago on 11-04-2024 Potassium [Moles/Vol] 3.7 mmol/L 3.3-5.1 [facility] Protein Test strip Ql (U)Ord ered By: Rebecca De Santiago on 11-04-2024 Protein Ql (U) 15 mg/dl High Negative [facility] RBC Auto (Bld) [#/Vol]Ordere d By: Rebecca De Santiago on 11-04-2024 RBC (Bld) [#/Vol] 4.62 10*6/uL 4.2-5.4 [facility] Serum creatinine measurement (mass/volume)Ordered By: Rebecca De Santiago on 11-04-2024 Creatinine [Mass/Vol] 1.48 mg/dL High 0.70-1.20 [facility] Serum glucose measurement (m ass/volume)Ordered By: Rebecca De Santiago on 11-04-2024 Glucose [Mass/Vol] 117 mg/dL High 70-99 [facility] Serum or plasma calcium dane urement (mass/volume)Ordered By: Rebecca De Santiago on 11-04-2024 Calcium [Mass/Vol] 9.3 mg/dL 7.6-11.0 [facility] Serum or plasma urea nitroge n measurement (mass/volume)Ordered By: Rebecca De Santiago on 11-04-2024 Urea nitrogen [Mass/Vol] 13 mg/dL 4-19 [facility] Serum phosphorus measurement Ordered By: Lauren Vela on 11-04-2024 Phosphorus Level 4.0 mg/dL 2.7-4.5 [facility] Sodium levelOrdered By: Sergio De Santiago on 11-04-2024 Sodium [Moles/Vol] 142 mmol/L 133-145 [facility] Squamous epithelial cells de tection in urine sediment by light microscopyOrdered By: Rebecca De Santiago on 11-04-2024 Epithelial cells.squamous LM Ql (Urine sed) 0 SEEN /hpf 5-10 [facility] Urinalysis, Completeon 11-04 BACTERIA 3+ /hpf Normal None Seen [facility] Comment on above: Order Comment: JASON TER SPECIMEN Performed By: #### L 400.0001 ####[facility] [address] [place], [address] WBC 25-50 SEEN Normal 0-5 [facility] Comment on above: Order Comment: JASON TER SPECIMEN Performed By: #### L 400.0001 ####[facility] [address] [place], [address] EPI,SQUAMOUS 0 SEEN Normal 5-10 [facility] Comment on above: Order Comment: JASON TER SPECIMEN Performed By: #### L 400.0001 ####[facility] [address] [place], [address] Mucus Ql (Urine sed) 0 SEEN Normal [facility] Comment on above: Order Comment: JASON TER SPECIMEN Performed By: #### L 400.0001 ####[facility] [address] [place], [address] RBC 0 SEEN Normal 0-5 [facility] Comment on above: Order Comment: JASON TER SPECIMEN Performed By: #### L 400.0001 ####[facility] [address] [place], [address] Urine blood detectionOrdered By: Rebecca De Santiago on 11-04-2024 Urine Occult Blood 50 /ul High Negative [facility] Urine clarityOrdered By: Chinmay De Santiago on 11-04-2024 Clarity (U) Sl. Cloudy Clear [facility] Urine color determinationOrd ered By: Rebecca De Santiago on 11-04-2024 Color (U) Yellow Yellow [facility] Urine cultureOrdered By: Issa Chapin on 11-04-2024 Bacteria identified Cx Nom (U) Klebsiella pneumoniae sp pneum Abnormal [facility] Urine glucose detectionOrder ed By: Rebecca De Santiago on 11-04-2024 Glucose Ql (U) Normal mg/dl Normal [facility] Urine leukocyte esterase det ection by dipstickOrdered By: Rebecca De Santiago on 11-04-2024 Leukocyte esterase Test strip Ql (U) 500 /ul High Negative [facility] Urine pHOrdered By: Jayleen De Santiago on 11-04-2024 pH (U) 5.0 [pH] 5.0 - 8.0 [facility] Urine sediment bacteria coun t by microscopy (number/high power field)Ordered By: Rebecca De Santiago on 11-04-2024 Bacteria LM.HPF (Urine sed) [#/Area] 3 /[HPF] None Seen [facility] Urine specific gravity measu rementOrdered By: Rebecca De Santiago on 11-04-2024 Specific gravity (U) [Rel density] 1.020 1.002-1.030 [facility] Urine urobilinogen measureme ntOrdered By: Rebecca De Santiago on 11-04-2024 Urobilinogen Ql (U) 1 mg/dl High Normal [facility] Urobilinogen Ql (U)Ordered B y: Rebecca De Santiago on 11-04-2024 Urobilinogen (U) [Mass/Vol] 1 mg/dL High Normal [facility] White blood cell (WBC) count Ordered By: Rebecca De Santiago on 11-04-2024 WBC (Bld) [#/Vol] 9.9 10*3/uL 4.4-11.0 [facility] White blood cell countOrdere d By: Rebecca De Santiago on 11-04-2024 Urine WBC 25-50 SEEN /hpf 0-5 [facility] White blood cell count 25-50 SEEN /hpf 0-5 [facility] Bedside Glucoseon 09-21-2024 FINGERSTICK GLU 175 mg/dL High 74-106 [facility] Comment on above: Result Comment: BJ GEMENT OF PATIENT CARE PER NURSING PROTOCOL Performed By: #### L 501.080 ####[facility] [address] [place], [place], [address] FINGERSTICK GLU 177 mg/dL High 74-106 [facility] Comment on above: Result Comment: BJ GEMENT OF PATIENT CARE PER NURSING PROTOCOL Performed By: #### L 501.080 ####[facility] [address] [place], [place], [id number] [facility] deOrdered By: Marco Jones on 09-21-2024 Bedside Glucose (Misc Panel) 175 mg/dL High 74-106 [facility] Comment on above: MANAGEMENT OF PATIEN T CARE PER NURSING PROTOCOL Glucose [Mass/Vol] 175 mg/dL High 74-106 [facility] Bedside Glucoseon 09-20-2024 FINGERSTICK GLU 216 mg/dL High -106 [facility] Comment on above: Result Comment: BJ GEMENT OF PATIENT CARE PER NURSING PROTOCOL Performed By: #### L 501.080 ####[facility] [address] [facility] [address] FINGERSTICK GLU 208 mg/dL High [address] [place] [address] Comment on above: Result Comment: BJ GEMENT OF PATIENT CARE PER NURSING PROTOCOL Performed By: #### L 501.080 ####[facility] [address] [place], [address] FINGERSTICK GLU 160 mg/dL [address] [facility] Comment on above: Result Comment: BJ GEMENT OF PATIENT CARE PER NURSING PROTOCOL Performed By: #### L 501.080 ####[facility] [address] [place], [address] FINGERSTICK GLU 119 mg/dL [address] [facility] Comment on above: Result Comment: BJ GEMENT OF PATIENT CARE PER NURSING PROTOCOL Performed By: #### L 501.080 ####[facility] [address] [place], [address] Absolute lymphocyte countOrd ered By: Guevara Collins on 09-19-2024 Lymphocytes Auto (Unsp spec) [#/Vol] 2.12 10*3/uL 0.83-4.51 [facility] Absolute neutrophil countOrd ered By: Guevara Collins on 09-19-2024 Neutrophils (Bld) [#/Vol] 14.6 10*3/uL High 2.0-7.7 [facility] Anion gap in Serum or Plasma Ordered By: Guevara Collins on 09-19-2024 Anion gap [Moles/Vol] 11 mmol/L 5-15 [facility] Automated lymphocyte count a s percentage of total leukocytesOrdered By: Guevara Collins on 09-19-2024 Lymphocytes/100 WBC Auto (Unsp spec) 11.7 % Low 19-41 [facility] BUN/creatinine ratioOrdered By: Guevara Collins on 09-19-2024 Urea nitrogen/Creatinine [Mass ratio] 29.4 mg/mg High 10- [facility] Basic Metabolic Profile (BMP )on 09-19-2024 BUN/CRE 29.4 RATIO High 10- [facility] Comment on above: Performed By: #### L 500.2500, L100.0100 ####[facility] [address] [place], [address] Calcium [Mass/Vol] 8.7 mg/dL Normal 7.6-11.0 [facility] Comment on above: Performed By: #### L 500.2500, L100.0100 ####[facility] [address] [place], [address] Chloride [Moles/Vol] 102 mmol/L Normal 98-108 [facility] Comment on above: Performed By: #### L 500.2500, L100.0100 ####[facility] [address] [place], [address] CO2 [Moles/Vol] 23.5 mmol/L Normal 21.0-32.0 [facility] Comment on above: Performed By: #### L 500.2500, L100.0100 ####[facility] [address] [place], [address] Creatinine [Mass/Vol] 1.43 mg/dL High 0.70-1.20 [facility] Comment on above: Performed By: #### L 500.2500, L100.0100 ####[facility] [address] [place], [address] ECRCL 50.72 ml/min Normal 50-250 [facility] Comment on above: Performed By: #### L 500.2500, L100.0100 ####[facility] [address] [place], [address] GAP 11 Normal 5-15 [facility] Comment on above: Performed By: #### L 500.2500, L100.0100 ####[facility] [address] [place], [address] GFR/1.73 sq M.predicted among non-blacks MDRD (S/P/Bld) [Vol rate/Area] 41 mL/min/{1.73_m2} Low >60 [facility] Comment on above: Result Comment: mL/m in/1.73m2 CKD-EPI Creatinine Equation (2020) Performed By: #### L 500.2500, L100.0100 ####[facility] [address] [place], [address] Glucose [Mass/Vol] 128 mg/dL High 70-99 [facility] Comment on above: Performed By: #### L 500.2500, L100.0100 ####[facility] [address] [place], [address] Potassium [Moles/Vol] 4.9 mmol/L Normal 3.3-5.1 [facility] Comment on above: Result Comment: Hemo lysis present, Results??could be affected.?? Performed By: #### L 500.2500, L100.0100 ####[facility] [address] [place], [address] Sodium [Moles/Vol] 136 mmol/L Normal 133-145 [facility] Comment on above: Performed By: #### L 500.2500, L100.0100 ####[facility] [address] [place], [address] Urea nitrogen [Mass/Vol] 42 mg/dL High 4-19 [facility] Comment on above: Performed By: #### L 500.2500, L100.0100 ####[facility] [address] [place], [address] Basophil percentageOrdered B y: Guevara Collins on 09-19-2024 Basophils/100 WBC (Bld) 0.2 % 0-1 [facility] Bedside Glucoseon 09-19-2024 FINGERSTICK GLU 208 mg/dL High 74-106 [facility] Comment on above: Result Comment: BJ GEMENT OF PATIENT CARE PER NURSING PROTOCOL Performed By: #### L 501.080 ####[facility] [address] [place], [address] FINGERSTICK GLU 142 mg/dL High 74-106 [facility] Comment on above: Result Comment: BJ GEMENT OF PATIENT CARE PER NURSING PROTOCOL Performed By: #### L 501.080 ####[facility] [address] [place], [address] FINGERSTICK GLU 172 mg/dL High 74-106 [facility] Comment on above: Result Comment: BJ GEMENT OF PATIENT CARE PER NURSING PROTOCOL Performed By: #### L 501.080 ####[facility] [address] [place], [address] FINGERSTICK GLU 127 mg/dL High 74-106 [facility] Comment on above: Result Comment: BJ GEMENT OF PATIENT CARE PER NURSING PROTOCOL Performed By: #### L 501.080 ####[facility] [address] [place], [address] CBC W/Diff, Automatedon Absolute Lymph 2.12 X10 3/uL Normal 0.83-4.51 [facility] Comment on above: Performed By: #### L 500.2500, L100.0100 ####[facility] [address] [place], [address] Absolute Neut 14.6 X10 3/uL High 2.0-7.7 [facility] Comment on above: Performed By: #### L 500.2500, L100.0100 ####[facility] [address] [place], [address] Basophils/100 WBC (Bld) 0.2 % Normal 0-1 [facility] Comment on above: Performed By: #### L 500.2500, L100.0100 ####[facility] [address] [place], [address] Eosinophils/100 WBC (Bld) 0.0 % Normal 0-5 [facility] Comment on above: Performed By: #### L 500.2500, L100.0100 ####[facility] [address] [place], [address] Erythrocyte distribution width (RBC) [Ratio] 13.0 % Normal 11.6-14.6 [facility] Comment on above: Performed By: #### L 500.2500, L100.0100 ####[facility] [address] [place], [address] Hematocrit (Bld) [Volume fraction] 42.3 % Normal 37-47 [facility] Comment on above: Performed By: #### L 500.2500, L100.0100 ####[facility] [address] [place], [address] Hemoglobin (Bld) [Mass/Vol] 14.1 g/dL Normal 12.0-15.0 [facility] Comment on above: Performed By: #### L 500.2500, L100.0100 ####[facility] [address] [place], [address] IG% 1.000 High 0.0-0.9 [facility] Comment on above: Result Comment: IG% - Immature Granulocytes (promyelocytes, myelocytes andmetamyelocytes) > 1% indicates that a LEFT SHIFT is Present. Performed By: #### L 500.2500, L100.0100 ####[facility] [address] [place], [address] Lymphocytes/100 WBC (Bld) 11.7 % Low 19-41 [facility] Comment on above: Performed By: #### L 500.2500, L100.0100 ####[facility] [address] [place], [address] MCH (RBC) [Entitic mass] 31.0 pg Normal 27.0-32.0 [facility] Comment on above: Performed By: #### L 500.2500, L100.0100 ####[facility] [address] [place], [address] MCHC (RBC) [Mass/Vol] 33.3 g/dL Normal 32-36 [facility] Comment on above: Performed By: #### L 500.2500, L100.0100 ####[facility] [address] [place], [address] MCV (RBC) [Entitic vol] 93.0 fL Normal 81-99 [facility] Comment on above: Performed By: #### L 500.2500, L100.0100 ####[facility] [address] [place], [address] Monocytes/100 WBC (Bld) 6.4 % Normal 0-10 [facility] Comment on above: Performed By: #### L 500.2500, L100.0100 ####[facility] [address] [place], [address] Neutrophils/100 WBC (Bld) 80.7 % High 47-70 [facility] Comment on above: Performed By: #### L 500.2500, L100.0100 ####[facility] [address] [place], [address] Nucleated RBC (Bld) [#/Vol] 0 10*3/uL Normal 0-5 [facility] Comment on above: Performed By: #### L 500.2500, L100.0100 ####[facility] [address] [place], [address] Platelet mean volume (Bld) [Entitic vol] 10.1 fL Normal 6.2-12.0 [facility] Comment on above: Performed By: #### L 500.2500, L100.0100 ####[facility] [address] [place], [address] Platelets (Bld) [#/Vol] 302 10*3/uL Normal 150-450 [facility] Comment on above: Performed By: #### L 500.2500, L100.0100 ####[facility] [address] [place], [address] RBC (Bld) [#/Vol] 4.55 10*6/uL Normal 4.2-5.4 [facility] Comment on above: Performed By: #### L 500.2500, L100.0100 ####[facility] [address] [place], [address] RDW SD 44.3 fl High 35.1-43.9 [facility] Comment on above: Performed By: #### L 500.2500, L100.0100 ####[facility] [address] [place], [address] WBC (Bld) [#/Vol] 18.1 10*3/uL High 4.4-11.0 [facility] Comment on above: Performed By: #### L 500.2500, L100.0100 ####[facility] [address] [place], [address] Carbon dioxide, total [Moles /volume] in Central venous bloodOrdered By: Guevara Collins on 09-19-2024 CO2 [Moles/Vol] 23.5 mmol/L 21.0-32.0 [facility] Chloride assayOrdered By: Latisha Collins on 09-19-2024 Chloride [Moles/Vol] 102 mmol/L 98-108 [facility] Eosinophil percentageOrdered By: Guevara Collins on 09-19-2024 Eosinophils/100 WBC (Bld) 0.0 % 0-5 [facility] Erythrocyte distribution wid th ratioOrdered By: Guevara Collins on 09-19-2024 Erythrocyte distribution width (RBC) [Ratio] 13.0 % 11.6-14.6 [facility] Erythrocyte distribution wid th standard deviationOrdered By: Guevara Collins on 09-19-2024 Erythrocyte distribution width (RBC) [Entitic vol] 44.3 fL High 35.1-43.9 [facility] Erythrocyte distribution width (RBC) [Ratio] 44.3 fl High 35.1-43.9 [facility] Estimation of creatinine julee aranceOrdered By: Guevara Collins on 09-19-2024 Estimated Creatinine Clearance Calc 50.72 ml/min 50-250 [facility] GFR/1.73 sq M.predicted yu g non-blacks MDRD (S/P/Bld) [Vol rate/Area]Ordered By: Guevara Collins on 09-19-2024 Estimated GFR (MDRD) Non-Af Amer 41 Low >60 [facility] Comment on above: mL/min/1.73m2 CKD-EP I Creatinine Equation (2020) Glomerular filtration rate ( GFR) estimation/1.73 sq m using serum, plasma, or whole bOrdered By: Guevara Collins on 09-19-2024 GFR/1.73 sq M.predicted among non-blacks MDRD (S/P/Bld) [Vol rate/Area] 41 mL/min/{1.73_m2} Low >60 [facility] Hematocrit Auto (Bld) [Volum e fraction]Ordered By: Guevara Collins on 09-19-2024 Hematocrit (Bld) [Volume fraction] 42.3 % 37-47 [facility] Hemoglobin measurementOrdere d By: Guevara Collins on 09-19-2024 Hemoglobin (Bld) [Mass/Vol] 14.1 g/dL 12.0-15.0 [facility] Immature granulocytes/100 WB C Auto (Bld)Ordered By: Guevara Collins on 09-19-2024 Immature granulocytes/100 WBC (Bld) 1.000 % High 0.0-0.9 [facility] Comment on above: IG% - Immature Granu locytes (promyelocytes, myelocytes and metamyelocytes) > 1% indicates that a LEFT SHIFT is Present. Lymphocytes Auto (Unsp spec) [#/Vol]Ordered By: Guevara Collins on 09-19-2024 Lymphocytes (Bld) [#/Vol] 2.12 10*3/uL 0.83-4.51 [facility] Lymphocytes/100 WBC Auto (Un sp spec)Ordered By: Guevara Collins on 09-19-2024 Lymphocytes/100 WBC (Bld) 11.7 % Low 19-41 [facility] MCV (mean corpuscular volume ) determinationOrdered By: Guevara Collins on 09-19-2024 MCV (RBC) [Entitic vol] 93.0 fL 81-99 [facility] Mean corpuscular hemoglobin (MCH) determinationOrdered By: Guevara Collins on 09-19-2024 MCH (RBC) [Entitic mass] 31.0 pg 27.0-32.0 [facility] Mean corpuscular hemoglobin concentration (MCHC) determinationOrdered By: Guevara Collins on 09-19-2024 MCHC (RBC) [Mass/Vol] 33.3 g/dL 32-36 [facility] Mean platelet volume determi nationOrdered By: Guevara Collins on 09-19-2024 Platelet mean volume (Bld) [Entitic vol] 10.1 fL 6.2-12.0 [facility] Monocyte percentageOrdered B y: Guevara Collins on 09-19-2024 Monocytes/100 WBC (Bld) 6.4 % 0-10 [facility] Neutrophil percentageOrdered By: Guevara Collins on 09-19-2024 Neutrophils/100 WBC (Bld) 80.7 % High 47-70 [facility] Nucleated red blood cell per centageOrdered By: Guevara Collins on 09-19-2024 Nucleated RBC/100 WBC (Bld) [Ratio] 0 % 0-5 [facility] Platelet countOrdered By: Latisha Collins on 09-19-2024 Platelets (Bld) [#/Vol] 302 10*3/uL 150-450 [facility] Potassium (Unsp spec) [Mass/ Vol]Ordered By: Guevara Collins on 09-19-2024 Potassium [Moles/Vol] 4.9 mmol/L 3.3-5.1 [facility] Comment on above: Hemolysis present, R esults could be affected. Potassium measurement (mass/ volume)Ordered By: Guevara Collins on 09-19-2024 Potassium (Unsp spec) [Mass/Vol] 4.9 mmol/L 3.3-5.1 [facility] RBC Auto (Bld) [#/Vol]Ordere d By: Guevara Collins on 09-19-2024 RBC (Bld) [#/Vol] 4.55 10*6/uL 4.2-5.4 [facility] Serum creatinine measurement (mass/volume)Ordered By: Guevara Collins on 09-19-2024 Creatinine [Mass/Vol] 1.43 mg/dL High 0.70-1.20 [facility] Serum glucose measurement (m ass/volume)Ordered By: Guevara Collins on 09-19-2024 Glucose [Mass/Vol] 128 mg/dL High 70-99 [facility] Serum or plasma calcium dane urement (mass/volume)Ordered By: Guevara Collins on 09-19-2024 Calcium [Mass/Vol] 8.7 mg/dL 7.6-11.0 [facility] Serum or plasma urea nitroge n measurement (mass/volume)Ordered By: Guevara Collins on 09-19-2024 Urea nitrogen [Mass/Vol] 42 mg/dL High 4-19 [facility] Sodium levelOrdered By: Krishna Collisn on 09-19-2024 Sodium [Moles/Vol] 136 mmol/L 133-145 [facility] White blood cell (WBC) count Ordered By: Guevara Collins on 09-19-2024 WBC (Bld) [#/Vol] 18.1 10*3/uL High 4.4-11.0 [facility] Basic Metabolic Profile (BMP )on 09-18-2024 Anion gap [Moles/Vol] 12 mmol/L Normal 5-15 [facility] Comment on above: Performed By: #### L 500.2500 ####[facility] [address] [place], [address] BUN/CRE 30.9 RATIO High 10-20 [facility] Comment on above: Performed By: #### L 500.2500 ####[facility] [address] [place], [address] Calcium [Mass/Vol] 8.9 mg/dL Normal 7.6-11.0 [facility] Comment on above: Performed By: #### L 500.2500 ####[facility] [address] [place], [address] Chloride [Moles/Vol] 103 mmol/L Normal 96-108 [facility] Comment on above: Performed By: #### L 500.2500 ####[facility] [address] [place], [address] CO2 [Moles/Vol] 24.3 mmol/L Normal 22.0-29.0 [facility] Comment on above: Performed By: #### L 500.2500 ####[facility] [address] [place], [address] Creatinine [Mass/Vol] 1.39 mg/dL High 0.70-1.20 [facility] Comment on above: Performed By: #### L 500.2500 ####[facility] [address] [place], [address] ECRCL 52.18 ml/min Normal 50-250 [facility] Comment on above: Performed By: #### L 500.2500 ####[facility] [address] [place], [address] GFR/1.73 sq M.predicted among non-blacks MDRD (S/P/Bld) [Vol rate/Area] 43 mL/min/{1.73_m2} Low >60 [facility] Comment on above: Result Comment: mL/m in/1.73m2 CKD-EPI Creatinine Equation (2020) Performed By: #### L 500.2500 ####[facility] [address] [place], [address] Glucose [Mass/Vol] 124 mg/dL High 70-99 [facility] Comment on above: Performed By: #### L 500.2500 ####[facility] [address] [place], [address] Potassium [Moles/Vol] 4.5 mmol/L Normal 3.3-5.1 [facility] Comment on above: Performed By: #### L 500.2500 ####[facility] [address] [place], [address] Sodium [Moles/Vol] 139 mmol/L Normal 133-145 [facility] Comment on above: Performed By: #### L 500.2500 ####[facility] [address] [place], [address] Urea nitrogen [Mass/Vol] 43 mg/dL High 4-19 [facility] Comment on above: Performed By: #### L 500.2500 ####[facility] [address] [place], [address] Bedside Glucoseon 09-18-2024 FINGERSTICK GLU 185 mg/dL High 74-106 [facility] Comment on above: Result Comment: BJ ZENY OF PATIENT CARE PER NURSING PROTOCOL Performed By: #### L 501.080 ####[facility] [address] [place], [address] FINGERSTICK GLU 145 mg/dL High 74-106 [facility] Comment on above: Result Comment: BJ GEMENT OF PATIENT CARE PER NURSING PROTOCOL Performed By: #### L 501.080 ####[facility] [address] [place], [address] FINGERSTICK GLU 165 mg/dL High 74-106 [facility] Comment on above: Result Comment: Dext jose 50 GivenDr Orders FollowedSnack GivenMANAGEMENT OF PATIENT CARE PER NURSING PROTOCOL Performed By: #### L 501.080 ####[facility] [address] [place], [address] FINGERSTICK GLU 127 mg/dL High 74-106 [facility] Comment on above: Result Comment: BJ GEMENT OF PATIENT CARE PER NURSING PROTOCOL Performed By: #### L 501.080 ####[facility] [address] [place], [address] Chloride measurementOrdered By: Guevara Collins on 09-18-2024 Chloride [Moles/Vol] 103 mmol/L 96-108 [facility] Basic Metabolic Profile (BMP )on 09-17-2024 Anion gap [Moles/Vol] 13 mmol/L Normal 5-15 [facility] Comment on above: Performed By: #### L 500.2500 ####[facility] [address] [place], [address] BUN/CRE 30.4 RATIO High 10-20 [facility] Comment on above: Performed By: #### L 500.2500 ####[facility] [address] [place], [address] Calcium [Mass/Vol] 8.8 mg/dL Normal 7.6-11.0 [facility] Comment on above: Performed By: #### L 500.2500 ####[facility] [address] [place], [address] Chloride [Moles/Vol] 101 mmol/L Normal 96-108 [facility] Comment on above: Performed By: #### L 500.2500 ####[facility] [address] [place], [address] CO2 [Moles/Vol] 24.7 mmol/L Normal 22.0-29.0 [facility] Comment on above: Performed By: #### L 500.2500 ####[facility] [address] [place], [address] Creatinine [Mass/Vol] 1.41 mg/dL High 0.70-1.20 [facility] Comment on above: Performed By: #### L 500.2500 ####[facility] [address] [place], [address] ECRCL 51.44 ml/min Normal 50-250 [facility] Comment on above: Performed By: #### L 500.2500 ####[facility] [address] [place], [address] GFR/1.73 sq M.predicted among non-blacks MDRD (S/P/Bld) [Vol rate/Area] 42 mL/min/{1.73_m2} Low >60 [facility] Comment on above: Result Comment: mL/m in/1.73m2 CKD-EPI Creatinine Equation (2020) Performed By: #### L 500.2500 ####[facility] [address] [place], [address] Glucose [Mass/Vol] 131 mg/dL High 70-99 [facility] Comment on above: Performed By: #### L 500.2500 ####[facility] [address] [place], [address] Potassium [Moles/Vol] 4.2 mmol/L Normal 3.3-5.1 [facility] Comment on above: Result Comment: Hemo lysis present, Results??could be affected.?? Performed By: #### L 500.2500 ####[facility] [address] [place], [address] Sodium [Moles/Vol] 138 mmol/L Normal 133-145 [facility] Comment on above: Performed By: #### L 500.2500 ####[facility] [address] [place], [address] Urea nitrogen [Mass/Vol] 43 mg/dL High 4-19 [facility] Comment on above: Performed By: #### L 500.2500 ####[facility] [address] [place], [address] Bedside Glucoseon - FINGERSTICK GLU 156 mg/dL High 74-106 [facility] Comment on above: Result Comment: BJ GEMENT OF PATIENT CARE PER NURSING PROTOCOL Performed By: #### L 501.080 ####[facility] [address] [place], [address] FINGERSTICK GLU 238 mg/dL High 74-106 [facility] Comment on above: Result Comment: BJ GEMENT OF PATIENT CARE PER NURSING PROTOCOL Performed By: #### L 501.080 ####[facility] [address] [place], [address] FINGERSTICK GLU 144 mg/dL High 74-106 [facility] Comment on above: Result Comment: BJ GEMENT OF PATIENT CARE PER NURSING PROTOCOL Performed By: #### L 501.080 ####[facility] [address] [place], [address] FINGERSTICK GLU 136 mg/dL High 74-106 [facility] Comment on above: Result Comment: BJ GEMENT OF PATIENT CARE PER NURSING PROTOCOL Performed By: #### L 501.080 ####[facility] [address] [place], [address] CBC W/Diff, Automatedon 03-0 3-2025 Absolute Lymph 1.69 X10 3/uL Normal 0.83-4.51 [facility] Comment on above: Performed By: #### L 100.0100 ####[facility] [address] [place], [address] Absolute Neut 10.2 X10 3/uL High 2.0-7.7 [facility] Comment on above: Performed By: #### L 100.0100 ####[facility] [address] [place], [address] Basophils/100 WBC (Bld) 0.1 % Normal 0-1 [facility] Comment on above: Performed By: #### L 100.0100 ####[facility] [address] [place], [address] Eosinophils/100 WBC (Bld) 0.0 % Normal 0-5 [facility] Comment on above: Performed By: #### L 100.0100 ####[facility] [address] [place], [address] Erythrocyte distribution width (RBC) [Ratio] 13.0 % Normal 11.6-14.6 [facility] Comment on above: Performed By: #### L 100.0100 ####[facility] [address] [place], [address] Hematocrit (Bld) [Volume fraction] 42.4 % Normal 37-47 [facility] Comment on above: Performed By: #### L 100.0100 ####[facility] [address] [place], [address] Hemoglobin (Bld) [Mass/Vol] 14.1 g/dL Normal 12.0-15.0 [facility] Comment on above: Performed By: #### L 100.0100 ####[facility] [address] [place], [address] IG% 0.500 Normal 0.0-0.9 [facility] Comment on above: Result Comment: IG% - Immature Granulocytes (promyelocytes, myelocytes andmetamyelocytes) > 1% indicates that a LEFT SHIFT is Present. Performed By: #### L 100.0100 ####[facility] [address] [place], [address] Lymphocytes/100 WBC (Bld) 13.2 % Low 19-41 [facility] Comment on above: Performed By: #### L 100.0100 ####[facility] [address] [place], [address] MCH (RBC) [Entitic mass] 31.1 pg Normal 27.0-32.0 [facility] Comment on above: Performed By: #### L 100.0100 ####[facility] [address] [place], [address] MCHC (RBC) [Mass/Vol] 33.3 g/dL Normal 32-36 [facility] Comment on above: Performed By: #### L 100.0100 ####[facility] [address] [place], [address] MCV (RBC) [Entitic vol] 93.6 fL Normal 81-99 [facility] Comment on above: Performed By: #### L 100.0100 ####[facility] [address] [place], [address] Monocytes/100 WBC (Bld) 6.6 % Normal 0-10 [facility] Comment on above: Performed By: #### L 100.0100 ####[facility] [address] [place], [address] Neutrophils/100 WBC (Bld) 79.6 % High 47-70 [facility] Comment on above: Performed By: #### L 100.0100 ####[facility] [address] [place], [address] Nucleated RBC (Bld) [#/Vol] 0 10*3/uL Normal 0-5 [facility] Comment on above: Performed By: #### L 100.0100 ####[facility] [address] [place], [address] Platelet mean volume (Bld) [Entitic vol] 10.6 fL Normal 6.2-12.0 [facility] Comment on above: Performed By: #### L 100.0100 ####[facility] [address] [place], [address] Platelets (Bld) [#/Vol] 291 10*3/uL Normal 150-450 [facility] Comment on above: Performed By: #### L 100.0100 ####[facility] [address] [place], [address] RBC (Bld) [#/Vol] 4.53 10*6/uL Normal 4.2-5.4 [facility] Comment on above: Performed By: #### L 100.0100 ####[facility] [address] [place], [address] RDW SD 45.1 fl High 35.1-43.9 [facility] Comment on above: Performed By: #### L 100.0100 ####[facility] [address] [place], [address] WBC (Bld) [#/Vol] 12.8 10*3/uL High 4.4-11.0 [facility] Comment on above: Performed By: #### L 100.0100 ####[facility] [address] [place], [address] Culture, Blood (WB)on 2024 CUB Blood cultures x2, from two different sites No growth in 5 days. Normal [facility] Comment on above: Performed By: #### M 200.1000, L300.3900, L500.4050, L503.6005, L300.4310, L100.0100 ####[facility] [address] [place], [address] Basic Metabolic Profile (BMP )on 09-16-2024 Anion gap [Moles/Vol] 11 mmol/L Normal 5-15 [facility] Comment on above: Performed By: #### L 100.0100, L500.2500 ####[facility] [address] [place], [address] BUN/CRE 23.4 RATIO High 10-20 [facility] Comment on above: Performed By: #### L 100.0100, L500.2500 ####[facility] [address] [place], [address] Calcium [Mass/Vol] 9.2 mg/dL Normal 7.6-11.0 [facility] Comment on above: Performed By: #### L 100.0100, L500.2500 ####[facility] [address] [place], [address] Chloride [Moles/Vol] 104 mmol/L Normal 96-108 [facility] Comment on above: Performed By: #### L 100.0100, L500.2500 ####[facility] [address] [place], [address] CO2 [Moles/Vol] 25.6 mmol/L Normal 22.0-29.0 [facility] Comment on above: Performed By: #### L 100.0100, L500.2500 ####[facility] [address] [place], [address] Creatinine [Mass/Vol] 1.32 mg/dL High 0.70-1.20 [facility] Comment on above: Performed By: #### L 100.0100, L500.2500 ####[facility] [address] [place], [address] ECRCL 54.94 ml/min Normal 50-250 [facility] Comment on above: Performed By: #### L 100.0100, L500.2500 ####[facility] [address] [place], [address] GFR/1.73 sq M.predicted among non-blacks MDRD (S/P/Bld) [Vol rate/Area] 46 mL/min/{1.73_m2} Low >60 [facility] Comment on above: Result Comment: mL/m in/1.73m2 CKD-EPI Creatinine Equation (2020) Performed By: #### L 100.0100, L500.2500 ####[facility] [address] [place], [address] Glucose [Mass/Vol] 136 mg/dL High 70-99 [facility] Comment on above: Performed By: #### L 100.0100, L500.2500 ####[facility] [address] [place], [address] Potassium [Moles/Vol] 4.3 mmol/L Normal 3.3-5.1 [facility] Comment on above: Performed By: #### L 100.0100, L500.2500 ####[facility] [address] [place], [address] Sodium [Moles/Vol] 140 mmol/L Normal 133-145 [facility] Comment on above: Performed By: #### L 100.0100, L500.2500 ####[facility] [address] [place], [address] Urea nitrogen [Mass/Vol] 31 mg/dL High 4-19 [facility] Comment on above: Performed By: #### L 100.0100, L500.2500 ####[facility] [address] [place], [address] Bedside Glucoseon 09-16-2024 FINGERSTICK GLU 172 mg/dL High 74-106 [facility] Comment on above: Result Comment: BJ GEMENT OF PATIENT CARE PER NURSING PROTOCOL Performed By: #### L 501.080 ####[facility] [address] [place], [address] FINGERSTICK GLU 196 mg/dL High 74-106 [facility] Comment on above: Result Comment: BJ GEMENT OF PATIENT CARE PER NURSING PROTOCOL Performed By: #### L 501.080 ####[facility] [address] [place], [address] FINGERSTICK GLU 151 mg/dL High 74-106 [facility] Comment on above: Result Comment: BJ GEMENT OF PATIENT CARE PER NURSING PROTOCOL Performed By: #### L 501.080 ####[facility] [address] [place], [address] FINGERSTICK GLU 135 mg/dL High 74-106 [facility] Comment on above: Result Comment: BJ GEMENT OF PATIENT CARE PER NURSING PROTOCOL Performed By: #### L 501.080 ####[facility] [address] [place], [address] CBC W/Diff, Automatedon 03-0 2-2025 Absolute Lymph 1.02 X10 3/uL Normal 0.83-4.51 [facility] Comment on above: Performed By: #### L 100.0100, L500.2500 ####[facility] [address] [place], [address] Absolute Neut 7.2 X10 3/uL Normal 2.0-7.7 [facility] Comment on above: Performed By: #### L 100.0100, L500.2500 ####[facility] [address] [place], [address] Basophils/100 WBC (Bld) 0.1 % Normal 0-1 [facility] Comment on above: Performed By: #### L 100.0100, L500.2500 ####[facility] [address] [place], [address] Eosinophils/100 WBC (Bld) 0.0 % Normal 0-5 [facility] Comment on above: Performed By: #### L 100.0100, L500.2500 ####[facility] [address] [place], [address] Erythrocyte distribution width (RBC) [Ratio] 13.1 % Normal 11.6-14.6 [facility] Comment on above: Performed By: #### L 100.0100, L500.2500 ####[facility] [address] [place], [address] Hematocrit (Bld) [Volume fraction] 41.8 % Normal 37-47 [facility] Comment on above: Performed By: #### L 100.0100, L500.2500 ####[facility] [address] [place], [address] Hemoglobin (Bld) [Mass/Vol] 13.7 g/dL Normal 12.0-15.0 [facility] Comment on above: Performed By: #### L 100.0100, L500.2500 ####[facility] [address] [place], [address] IG% 0.300 Normal 0.0-0.9 [facility] Comment on above: Result Comment: IG% - Immature Granulocytes (promyelocytes, myelocytes andmetamyelocytes) > 1% indicates that a LEFT SHIFT is Present. Performed By: #### L 100.0100, L500.2500 ####[facility] [address] [place], [address] Lymphocytes/100 WBC (Bld) 11.4 % Low 19-41 [facility] Comment on above: Performed By: #### L 100.0100, L500.2500 ####[facility] [address] [place], [address] MCH (RBC) [Entitic mass] 30.9 pg Normal 27.0-32.0 [facility] Comment on above: Performed By: #### L 100.0100, L500.2500 ####[facility] [address] [place], [address] MCHC (RBC) [Mass/Vol] 32.8 g/dL Normal 32-36 [facility] Comment on above: Performed By: #### L 100.0100, L500.2500 ####[facility] [address] [place], [address] MCV (RBC) [Entitic vol] 94.4 fL Normal 81-99 [facility] Comment on above: Performed By: #### L 100.0100, L500.2500 ####[facility] [address] [place], [address] Monocytes/100 WBC (Bld) 7.1 % Normal 0-10 [facility] Comment on above: Performed By: #### L 100.0100, L500.2500 ####[facility] [address] [place], [address] Neutrophils/100 WBC (Bld) 81.1 % High 47-70 [facility] Comment on above: Performed By: #### L 100.0100, L500.2500 ####[facility] [address] [place], [address] Nucleated RBC (Bld) [#/Vol] 0 10*3/uL Normal 0-5 [facility] Comment on above: Performed By: #### L 100.0100, L500.2500 ####[facility] [address] [place], [address] Platelet mean volume (Bld) [Entitic vol] 10.4 fL Normal 6.2-12.0 [facility] Comment on above: Performed By: #### L 100.0100, L500.2500 ####[facility] [address] [place], [address] Platelets (Bld) [#/Vol] 263 10*3/uL Normal 150-450 [facility] Comment on above: Performed By: #### L 100.0100, L500.2500 ####[facility] [address] [place], [address] RBC (Bld) [#/Vol] 4.43 10*6/uL Normal 4.2-5.4 [facility] Comment on above: Performed By: #### L 100.0100, L500.2500 ####[facility] [address] [place], [address] RDW SD 45.6 fl High 35.1-43.9 [facility] Comment on above: Performed By: #### L 100.0100, L500.2500 ####[facility] [address] [place], [address] WBC (Bld) [#/Vol] 8.9 10*3/uL Normal 4.4-11.0 [facility] Comment on above: Performed By: #### L 100.0100, L500.2500 ####[facility] [address] [place], [address] Bedside Glucoseon 09-15-2024 FINGERSTICK GLU 143 mg/dL High 74-106 [facility] Comment on above: Result Comment: BJ GEMENT OF PATIENT CARE PER NURSING PROTOCOL Performed By: #### L 501.080 ####[facility] [address] [place], [address] FINGERSTICK GLU 141 mg/dL High 74-106 [facility] Comment on above: Result Comment: BJ GEMENT OF PATIENT CARE PER NURSING PROTOCOL Performed By: #### L 501.080 ####[facility] [address] [place], [address] FINGERSTICK GLU 118 mg/dL High 74-106 [facility] Comment on above: Result Comment: BJ GEMENT OF PATIENT CARE PER NURSING PROTOCOL Performed By: #### L 501.080 ####[facility] [address] [place], [address] FINGERSTICK GLU 117 mg/dL High 74-106 [facility] Comment on above: Result Comment: BJ GEMENT OF PATIENT CARE PER NURSING PROTOCOL Performed By: #### L 501.080 ####[facility] [address] [place], [address] FINGERSTICK GLU 145 mg/dL High 74-106 [facility] Comment on above: Result Comment: BJ GEMENT OF PATIENT CARE PER NURSING PROTOCOL Performed By: #### L 501.080 ####[facility] [address] [place], [address] Basic Metabolic Profile (BMP )on 09-14-2024 Anion gap [Moles/Vol] 10 mmol/L Normal 5-15 [facility] Comment on above: Performed By: #### L 500.2500 ####[facility] [address] [place], [address] BUN/CRE 15.8 RATIO Normal 10-20 [facility] Comment on above: Performed By: #### L 500.2500 ####[facility] [address] [place], [address] Calcium [Mass/Vol] 8.7 mg/dL Normal 7.6-11.0 [facility] Comment on above: Performed By: #### L 500.2500 ####[facility] [address] [place], [address] Chloride [Moles/Vol] 108 mmol/L Normal 96-108 [facility] Comment on above: Performed By: #### L 500.2500 ####[facility] [address] [place], [address] CO2 [Moles/Vol] 21.7 mmol/L Low 22.0-29.0 [facility] Comment on above: Performed By: #### L 500.2500 ####[facility] [address] [place], [address] Creatinine [Mass/Vol] 1.20 mg/dL Normal 0.70-1.20 [facility] Comment on above: Performed By: #### L 500.2500 ####[facility] [address] [place], [address] ECRCL 60.44 ml/min Normal [facility] Comment on above: Performed By: #### L 500.2500 ####[facility] [address] [place], [address] GFR/1.73 sq M.predicted among non-blacks MDRD (S/P/Bld) [Vol rate/Area] 51 mL/min/{1.73_m2} Low >60 [facility] Comment on above: Result Comment: mL/m in/1.73m2 CKD-EPI Creatinine Equation (2020) Performed By: #### L 500.2500 ####[facility] [address] [place], [address] Glucose [Mass/Vol] 132 mg/dL High 70-99 [facility] Comment on above: Performed By: #### L 500.2500 ####[facility] [address] [place], [address] Potassium [Moles/Vol] 4.1 mmol/L Normal 3.3-5.1 [facility] Comment on above: Performed By: #### L 500.2500 ####[facility] [address] [place], [address] Sodium [Moles/Vol] 140 mmol/L Normal 133-145 [facility] Comment on above: Performed By: #### L 500.2500 ####[facility] [address] [place], [address] Urea nitrogen [Mass/Vol] 19 mg/dL Normal 4-19 [facility] Comment on above: Performed By: #### L 500.2500 ####[facility] [address] [place], [address] Bedside Glucoseon 09-14-2024 FINGERSTICK GLU 185 mg/dL High 74-106 [facility] Comment on above: Result Comment: BJ GEMENT OF PATIENT CARE PER NURSING PROTOCOL Performed By: #### L 501.080 ####[facility] [address] [place], [address] FINGERSTICK GLU 210 mg/dL High 74-106 [facility] Comment on above: Result Comment: BJ GEMENT OF PATIENT CARE PER NURSING PROTOCOL Performed By: #### L 501.080 ####[facility] [address] [place], [address] FINGERSTICK GLU 130 mg/dL High 74-106 [facility] Comment on above: Result Comment: BJ GEMENT OF PATIENT CARE PER NURSING PROTOCOL Performed By: #### L 501.080 ####[facility] [address] [place], [address] Basic Metabolic Profile (BMP )on 09-13-2024 Anion gap [Moles/Vol] 10 mmol/L Normal 5-15 [facility] Comment on above: Order Comment: Comme nts: NPO at [place] prior to lipid panel Performed By: #### L 501.9520, L100.0100, L501.9985, L500.2500, L500.4100 ####[facility] [address] [place], [address] BUN/CRE 11.3 RATIO Normal 10-20 [facility] Comment on above: Order Comment: Comme nts: NPO at [place] prior to lipid panel Performed By: #### L 501.9520, L100.0100, L501.9985, L500.2500, L500.4100 ####[facility] [address] [place], [address] Calcium [Mass/Vol] 8.4 mg/dL Normal 7.6-11.0 [facility] Comment on above: Order Comment: Comme nts: NPO at [place] prior to lipid panel Performed By: #### L 501.9520, L100.0100, L501.9985, L500.2500, L500.4100 ####[facility] [address] [place], [address] Chloride [Moles/Vol] 109 mmol/L High 96-108 [facility] Comment on above: Order Comment: Comme nts: NPO at [place] prior to lipid panel Performed By: #### L 501.9520, L100.0100, L501.9985, L500.2500, L500.4100 ####[facility] [address] [place], [address] CO2 [Moles/Vol] 21.1 mmol/L Low 22.0-29.0 [facility] Comment on above: Order Comment: Comme nts: NPO at [place] prior to lipid panel Performed By: #### L 501.9520, L100.0100, L501.9985, L500.2500, L500.4100 ####[facility] [address] [place], [address] Creatinine [Mass/Vol] 1.3 mg/dL High 0.6-1.0 [facility] Comment on above: Order Comment: Comme nts: NPO at [place] prior to lipid panel Performed By: #### L 501.9520, L100.0100, L501.9985, L500.2500, L500.4100 ####[facility] [address] [place], [address] ECRCL 55.79 ml/min Normal [facility] Comment on above: Order Comment: Comme nts: NPO at [place] prior to lipid panel Performed By: #### L 501.9520, L100.0100, L501.9985, L500.2500, L500.4100 ####[facility] [address] [place], [address] GFR/1.73 sq M.predicted among non-blacks MDRD (S/P/Bld) [Vol rate/Area] 48 mL/min/{1.73_m2} Low >60 [facility] Comment on above: Order Comment: Comme nts: NPO at [place] prior to lipid panel Result Comment: mL/m in/1.73m2 CKD-EPI Creatinine Equation (2020) Performed By: #### L 501.9520, L100.0100, L501.9985, L500.2500, L500.4100 ####[facility] [address] [place], [address] Glucose [Mass/Vol] 130 mg/dL High 70-99 [facility] Comment on above: Order Comment: Comme nts: NPO at [place] prior to lipid panel Performed By: #### L 501.9520, L100.0100, L501.9985, L500.2500, L500.4100 ####[facility] [address] [place], [address] Potassium [Moles/Vol] 3.9 mmol/L Normal 3.3-5.1 [facility] Comment on above: Order Comment: Comme nts: NPO at [place] prior to lipid panel Performed By: #### L 501.9520, L100.0100, L501.9985, L500.2500, L500.4100 ####[facility] [address] [place], [address] Sodium [Moles/Vol] 140 mmol/L Normal 133-145 [facility] Comment on above: Order Comment: Comme nts: NPO at [place] prior to lipid panel Performed By: #### L 501.9520, L100.0100, L501.9985, L500.2500, L500.4100 ####[facility] [address] [place], [address] Urea nitrogen [Mass/Vol] 14 mg/dL Normal 4-19 [facility] Comment on above: Order Comment: Comme nts: NPO at [place] prior to lipid panel Performed By: #### L 501.9520, L100.0100, L501.9985, L500.2500, L500.4100 ####[facility] [address] [place], [address] Bedside Glucoseon 09-13-2024 FINGERSTICK GLU 129 mg/dL High 74-106 [facility] Comment on above: Result Comment: BJ GEMENT OF PATIENT CARE PER NURSING PROTOCOL Performed By: #### L 501.080 ####[facility] [address] [place], [address] FINGERSTICK GLU 148 mg/dL High -106 [facility] Comment on above: Result Comment: BJ GEMENT OF PATIENT CARE PER NURSING PROTOCOL Performed By: #### L 501.080 ####[facility] [address] [place], [address] FINGERSTICK GLU 195 mg/dL High 74-106 [facility] Comment on above: Result Comment: BJ GEMENT OF PATIENT CARE PER NURSING PROTOCOL Performed By: #### L 501.080 ####[facility] [address] [place], [address] FINGERSTICK GLU 128 mg/dL High 74-106 [facility] Comment on above: Result Comment: JB GEMENT OF PATIENT CARE PER NURSING PROTOCOL Performed By: #### L 501.080 ####[facility] [address] [place], [address] CBC W/Diff, Automatedon - Absolute Lymph 0.76 X10 3/uL Low 0.83-4.51 [facility] Comment on above: Performed By: #### L 501.9520, L100.0100, L501.9985, L500.2500, L500.4100 ####[facility] [address] [place], [address] Absolute Neut 6.1 X10 3/uL Normal 2.0-7.7 [facility] Comment on above: Performed By: #### L 501.9520, L100.0100, L501.9985, L500.2500, L500.4100 ####[facility] [address] [place], [address] Basophils/100 WBC (Bld) 0.1 % Normal 0-1 [facility] Comment on above: Performed By: #### L 501.9520, L100.0100, L501.9985, L500.2500, L500.4100 ####[facility] [address] [place], [address] Eosinophils/100 WBC (Bld) 0.0 % Normal 0-5 [facility] Comment on above: Performed By: #### L 501.9520, L100.0100, L501.9985, L500.2500, L500.4100 ####[facility] [address] [place], [address] Erythrocyte distribution width (RBC) [Ratio] 13.1 % Normal 11.6-14.6 [facility] Comment on above: Performed By: #### L 501.9520, L100.0100, L501.9985, L500.2500, L500.4100 ####[facility] [address] [place], [address] Hematocrit (Bld) [Volume fraction] 39.3 % Normal 37-47 [facility] Comment on above: Performed By: #### L 501.9520, L100.0100, L501.9985, L500.2500, L500.4100 ####[facility] [address] [place], [address] Hemoglobin (Bld) [Mass/Vol] 12.9 g/dL Normal 12.0-15.0 [facility] Comment on above: Performed By: #### L 501.9520, L100.0100, L501.9985, L500.2500, L500.4100 ####[facility] [address] [place], [address] IG% 0.500 Normal 0.0-0.9 [facility] Comment on above: Result Comment: IG% - Immature Granulocytes (promyelocytes, myelocytes andmetamyelocytes) > 1% indicates that a LEFT SHIFT is Present. Performed By: #### L 501.9520, L100.0100, L501.9985, L500.2500, L500.4100 ####[facility] [address] [place], [address] Lymphocytes/100 WBC (Bld) 10.0 % Low 19-41 [facility] Comment on above: Performed By: #### L 501.9520, L100.0100, L501.9985, L500.2500, L500.4100 ####[facility] [address] [place], [address] MCH (RBC) [Entitic mass] 31.7 pg Normal 27.0-32.0 [facility] Comment on above: Performed By: #### L 501.9520, L100.0100, L501.9985, L500.2500, L500.4100 ####[facility] [address] [place], [address] MCHC (RBC) [Mass/Vol] 32.8 g/dL Normal 32-36 [facility] Comment on above: Performed By: #### L 501.9520, L100.0100, L501.9985, L500.2500, L500.4100 ####[facility] [address] [place], [address] MCV (RBC) [Entitic vol] 96.6 fL Normal 81-99 [facility] Comment on above: Performed By: #### L 501.9520, L100.0100, L501.9985, L500.2500, L500.4100 ####[facility] [address] [place], [address] Monocytes/100 WBC (Bld) 9.5 % Normal 0-10 [facility] Comment on above: Performed By: #### L 501.9520, L100.0100, L501.9985, L500.2500, L500.4100 ####[facility] [address] [place], [address] Neutrophils/100 WBC (Bld) 79.9 % High 47-70 [facility] Comment on above: Performed By: #### L 501.9520, L100.0100, L501.9985, L500.2500, L500.4100 ####[facility] [address] [place], [address] Nucleated RBC (Bld) [#/Vol] 0 10*3/uL Normal 0-5 [facility] Comment on above: Performed By: #### L 501.9520, L100.0100, L501.9985, L500.2500, L500.4100 ####[facility] [address] [place], [address] Platelet mean volume (Bld) [Entitic vol] 10.6 fL Normal 6.2-12.0 [facility] Comment on above: Performed By: #### L 501.9520, L100.0100, L501.9985, L500.2500, L500.4100 ####[facility] [address] [place], [address] Platelets (Bld) [#/Vol] 225 10*3/uL Normal 150-450 [facility] Comment on above: Performed By: #### L 501.9520, L100.0100, L501.9985, L500.2500, L500.4100 ####[facility] [address] [place], [address] RBC (Bld) [#/Vol] 4.07 10*6/uL Low 4.2-5.4 [facility] Comment on above: Performed By: #### L 501.9520, L100.0100, L501.9985, L500.2500, L500.4100 ####[facility] [address] [place], [address] RDW SD 47.2 fl High 35.1-43.9 [facility] Comment on above: Performed By: #### L 501.9520, L100.0100, L501.9985, L500.2500, L500.4100 ####[facility] [address] [place], [address] WBC (Bld) [#/Vol] 7.6 10*3/uL Normal 4.4-11.0 [facility] Comment on above: Performed By: #### L 501.9520, L100.0100, L501.9985, L500.2500, L500.4100 ####[facility] [address] [place], [address] Calculated very low density lipoprotein (VLDL) cholesterol measurementOrdered By: Wilfredo Denton on 09-13-2024 Calculated very low density lipoprotein (VLDL) cholesterol measurement 14 mg/dL -40 [facility] VLDL Cholesterol 14 mg/dL -40 [facility] Echocardiogram study reportO rdered By: Genoveva Garcia on 09-13-2024 Study report [facility] [address] [place] [address] Echo Complete 09/13/24 1506 MR#: [id number] Acct: [id number] Name: PERNELL RODRIGUEZ Rep #:[id number] : 1960 64 From: Genoveva reaves MD Attending Dr: Dr. Guevara Collins MD Status: ADM IN Ordering Dr: Wilfredo Denton DO Date: Location: [facility] Sex: F C Admitted: 09/12/24 Reason [...] Dictated: 09/13/24 1506 Date Transcribed: 09/13/24 1542 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: Signed [facility] Work Phone: Electrocardiogram reportOrde red By: Kam Turk on 09-13-2024 EKG study [facility] [address] [place] [address] 12 Lead EKG 09/12/24 1113 MR#: [id number] Acct: [id number] Name: EPRNELL RODRIGUEZ Rep #:[id number] : 1960 64 From: Kam chan MD Attending Dr: Dr. Guevara Collins MD Status: ADM IN Ordering Dr: Randy Cabrales MD Date: Location: [facility] Sex: F C Admitted: 09/12/24 Test Reason : Blood Pressure : */* mmHG Vent. Rate : 93 BPM Atrial Rate : 93 BPM P-R Int : 162 ms QRS Dur : 88 ms QT Int : 360 ms P-R-T Axes : 57 0 61 degrees QTcB Int : 447 ms Normal sinus rhythm Normal ECG Confirmed by Kam Turk ([id number]), legal editor FLORES BOUCHER ([id number]) on 09/13/2024 9:33:48 AM Referred By: TA/TB Confirmed By: Kam Turk 09/13/24 0933 Date _ Kam Turk MD CC: Dr. Randy Cabrales MD; Dr. Homer Bradford MD; Dr. Guevara Collins MD ~ Signed [facility] Other Hemoglobin A1con 09-13-2024 HbA1c (Bld) [Mass fraction] 6.0 % Normal <=5.6 [facility] Comment on above: Performed By: #### L 501.9593, L100.0100, L501.2444, L500.2500, L500.7050 ####[facility] [address] [place], [address] Hemoglobin A1c percentageOrd ered By: Wilfredo Denton on 09-13-2024 HbA1c (Bld) [Mass fraction] 6.0 % >5.7 [facility] LDL calc ser/plasOrdered By: Wilfredo Denton on 09-13-2024 Cholesterol in LDL [Mass/Vol] 33 mg/dL [facility] LDL Cholesterol, Calculated 33 mg/dL [facility] Comment on above: Bcyvlqilpj=911-040 m g/dL & Higher Gknu=786 mg/dL or greater Lipid Profileon 09-13-2024 CHOL:HDL 2.00 Normal [facility] Comment on above: Order Comment: Comme nts: [place] at [place] prior to lipid panel Performed By: #### L 501.9520, L100.0100, L501.9985, L500.2500, L500.4100 ####[facility] [address] [place], [address] Cholesterol [Mass/Vol] 94 mg/dL Normal <=200 [facility] Comment on above: Order Comment: Comme nts: [place]PO at [place] prior to lipid panel Result Comment: Chol esterol level, Desirable <200 mg/dLBorderline high cholesterol 200-239 mg/dLHigh cholesterol >=240 mg/dLRecommendations of the NCEP Adult Treatment Panel for thefollowing risk-cutoff thresholds for the [place] Americanpopulation. Performed By: #### L 501.9520, L100.0100, L501.9985, L500.2500, L500.4100 ####[facility] [address] [place], [address] Cholesterol in HDL [Mass/Vol] 47 mg/dL Normal [facility] Comment on above: Order Comment: Comme nts: [place]PO at [place] prior to lipid panel Result Comment: Licha onal Cholesterol Education Program (NCEP) guidelines:<40 mg/dL: Low HDL-cholesterol (major risk factor for CHD)>= 60 mg/dL: High HDL-cholesterol (negative risk factor forCHD)HDL-cholesterol is affected by a number of factors, e.g.smoking, exercise, hormones, sex and age. Performed By: #### L 501.9520, L100.0100, L501.9985, L500.2500, L500.4100 ####[facility] [address] [place], [address] Cholesterol in LDL [Mass/Vol] 33 mg/dL Normal [facility] Comment on above: Order Comment: Comme nts: NPO at [place] prior to lipid panel Result Comment: Bord gqlvjc=869-394 mg/dL Higher Peav=371 mg/dL or greater Performed By: #### L 501.9520, L100.0100, L501.9985, L500.2500, L500.4100 ####[facility] [address] [place], [address] Cholesterol in VLDL [Mass/Vol] 14 mg/dL Normal 5-40 [facility] Comment on above: Order Comment: Comme nts: NPO at [place] prior to lipid panel Performed By: #### L 501.9520, L100.0100, L501.9985, L500.2500, L500.4100 ####[facility] [address] [place], [address] Triglyceride [Mass/Vol] 71 mg/dL Normal [facility] Comment on above: Order Comment: Comme nts: NPO at [place] prior to lipid panel Result Comment: The drugs N-Acetylcysteine and Metamizole may falselydepress this assay.Normal range: <150 mg/dLBorderline High: 150-199 mg/dLHigh: 200-499 mg/dLVery High: >500 mg/dL Performed By: #### L 501.9520, L100.0100, L501.9985, L500.2500, L500.4100 ####[facility] [address] [place], [address] MR/CON.PCM.NEon 09-13-2024 MR/CON.PCM.NE Normal [facility] Screening total cholesterol/ high density lipoprotein (HDL) cholesterol ratioOrdered By: Wilfredo Denton on 09-13-2024 Cholesterol.total/Choles terol in HDL [Mass ratio] 2.00 {ratio} [facility] Serum or plasma cholesterol in HDL measurement (mass/volume)Ordered By: Wilfredo Denton on 09-13-2024 Cholesterol in HDL [Mass/Vol] 47 mg/dL >40 [facility] Comment on above: National Cholesterol Education Program (NCEP) guidelines:<40 mg/dL: Low HDL-cholesterol (major risk factor for CHD)>= 60 mg/dL: High HDL-cholesterol (negative risk factor for CHD)HDL-cholesterol is affected by a number of factors, e.g. smoking, exercise, hormones, sex and age. Serum or plasma cholesterol measurement (mass/volume)Ordered By: Wilfredo Denton on 09-13-2024 Cholesterol [Mass/Vol] 94 mg/dL <201 [facility] Comment on above: Cholesterol level, D esirable <200 mg/dLBorderline high cholesterol 200-239 mg/dLHigh cholesterol >=240 mg/dLRecommendations of the NCEP Adult Treatment Panel for the following risk-cutoff thresholds for the [place] population. TSH DL <= 0.005 mIU/L QnOrde red By: Wilfredo Denton on 09-13-2024 Thyroid Stimulating Hormone (TSH) 0.483 uIU/mL 0.300-4.200 [facility] TSH Qn 0.483 uIU/mL 0.300-4.200 [facility] Thyroid Stim Hormone (TSH)on 09-13-2024 TSH 0.483 uIU/mL Normal 0.300-4.200 [facility] Comment on above: Order Comment: Comme nts: NPO at [place] prior to lipid panel Performed By: #### L 501.9520, L100.0100, L501.9985, L500.2500, L500.4100 ####[facility] [address] [place], [place], [address] Triglycerides measurementOrd ered By: Wilfredo Denton on 09-13-2024 Triglyceride [Mass/Vol] 71 mg/dL <199 [facility] Comment on above: The drugs N-Acetylcy steine and Metamizole may falsely depress this assay. Normal range: <150 mg/dLBorderline High: 150-199 mg/dLHigh: 200-499 mg/dLVery High: >500 mg/dL Urine Cultureon 09-13-2024 URC Culture exhibits no growth. Normal [facility] Comment on above: Performed By: #### M 100.2200, M100.678, L400.0001 ####[facility] [address] [place], [place], [address] 12 Lead EKGon 09-12-2024 12 Lead EKG Normal [facility] Activated partial thrombopla stin time (aPTT) in platelet poor plasma by coagulation aOrdered By: Randy Cabrales on 09-12-2024 aPTT Coag (PPP) [Time] 30.9 s 24.1-36.2 [facility] Bedside Glucoseon 09-12-2024 FINGERSTICK GLU 141 mg/dL High 74-106 [facility] Comment on above: Result Comment: BJ MOURA OF PATIENT CARE PER NURSING PROTOCOL Performed By: #### L 501.080 ####[facility] [address] [place], [place], [address] Bilirubin Test strip Ql (U)O rdered By: Randy Cabrales on 09-12-2024 Bilirubin Ql (U) Negative Negative [facility] Bilirubin, totalOrdered By: Randy Cabrales on 09-12-2024 Bilirubin [Mass/Vol] 0.69 mg/dL 0.00-1.30 [facility] Blood cultureOrdered By: Barrett Cabrales on 09-12-2024 Bacteria identified Cx Nom (Bld) No growth in 5 days. [facility] Bacteria identified Cx Nom (Bld) No growth in 5 days. [facility] Brain without Contraston Brain without Contrast Normal [facility] Brain/Head without Contrasto n 09-12-2024 Brain/Head without Contrast Normal [facility] CBC W/Diff, Automatedon 08-19 Absolute Lymph 0.53 X10 3/uL Low 0.83-4.51 [facility] Comment on above: Performed By: #### M 200.1000, L300.3900, L500.4050, L503.6005, L300.4310, L100.0100 ####[facility] [address] [place], [address] Absolute Neut 7.7 X10 3/uL Normal 2.0-7.7 [facility] Comment on above: Performed By: #### M 200.1000, L300.3900, L500.4050, L503.6005, L300.4310, L100.0100 ####[facility] [address] [place], [address] Basophils/100 WBC (Bld) 0.2 % Normal 0-1 [facility] Comment on above: Performed By: #### M 200.1000, L300.3900, L500.4050, L503.6005, L300.4310, L100.0100 ####[facility] [address] [place], [address] Eosinophils/100 WBC (Bld) 0.1 % Normal 0-5 [facility] Comment on above: Performed By: #### M 200.1000, L300.3900, L500.4050, L503.6005, L300.4310, L100.0100 ####[facility] [address] [place], [address] Erythrocyte distribution width (RBC) [Ratio] 13.2 % Normal 11.6-14.6 [facility] Comment on above: Performed By: #### M 200.1000, L300.3900, L500.4050, L503.6005, L300.4310, L100.0100 ####[facility] [address] [place], [address] Hematocrit (Bld) [Volume fraction] 42.9 % Normal 37-47 [facility] Comment on above: Performed By: #### M 200.1000, L300.3900, L500.4050, L503.6005, L300.4310, L100.0100 ####[facility] [address] [place], [address] Hemoglobin (Bld) [Mass/Vol] 14.0 g/dL Normal 12.0-15.0 [facility] Comment on above: Performed By: #### M 200.1000, L300.3900, L500.4050, L503.6005, L300.4310, L100.0100 ####[facility] [address] [place], [address] IG% 0.300 Normal 0.0-0.9 [facility] Comment on above: Result Comment: IG% - Immature Granulocytes (promyelocytes, myelocytes andmetamyelocytes) > 1% indicates that a LEFT SHIFT is Present. Performed By: #### M 200.1000, L300.3900, L500.4050, L503.6005, L300.4310, L100.0100 ####[facility] [address] [place], [address] Lymphocytes/100 WBC (Bld) 5.9 % Low 19-41 [facility] Comment on above: Performed By: #### M 200.1000, L300.3900, L500.4050, L503.6005, L300.4310, L100.0100 ####[facility] [address] [place], [address] MCH (RBC) [Entitic mass] 31.4 pg Normal 27.0-32.0 [facility] Comment on above: Performed By: #### M 200.1000, L300.3900, L500.4050, L503.6005, L300.4310, L100.0100 ####[facility] [address] [place], [address] MCHC (RBC) [Mass/Vol] 32.6 g/dL Normal 32-36 [facility] Comment on above: Performed By: #### M 200.1000, L300.3900, L500.4050, L503.6005, L300.4310, L100.0100 ####[facility] [address] [place], [address] MCV (RBC) [Entitic vol] 96.2 fL Normal 81-99 [facility] Comment on above: Performed By: #### M 200.1000, L300.3900, L500.4050, L503.6005, L300.4310, L100.0100 ####[facility] [address] [place], [address] Monocytes/100 WBC (Bld) 8.4 % Normal 0-10 [facility] Comment on above: Performed By: #### M 200.1000, L300.3900, L500.4050, L503.6005, L300.4310, L100.0100 ####[facility] [address] [place], [address] Neutrophils/100 WBC (Bld) 85.1 % High 47-70 [facility] Comment on above: Performed By: #### M 200.1000, L300.3900, L500.4050, L503.6005, L300.4310, L100.0100 ####[facility] [address] [place], [address] Nucleated RBC (Bld) [#/Vol] 0 10*3/uL Normal 0-5 [facility] Comment on above: Performed By: #### M 200.1000, L300.3900, L500.4050, L503.6005, L300.4310, L100.0100 ####[facility] [address] [place], [address] Platelet mean volume (Bld) [Entitic vol] 10.4 fL Normal 6.2-12.0 [facility] Comment on above: Performed By: #### M 200.1000, L300.3900, L500.4050, L503.6005, L300.4310, L100.0100 ####[facility] [address] [place], [address] Platelets (Bld) [#/Vol] 231 10*3/uL Normal 150-450 [facility] Comment on above: Performed By: #### M 200.1000, L300.3900, L500.4050, L503.6005, L300.4310, L100.0100 ####[facility] [address] [place], [address] RBC (Bld) [#/Vol] 4.46 10*6/uL Normal 4.2-5.4 [facility] Comment on above: Performed By: #### M 200.1000, L300.3900, L500.4050, L503.6005, L300.4310, L100.0100 ####[facility] [address] [place], [address] RDW SD 47.2 fl High 35.1-43.9 [facility] Comment on above: Performed By: #### M 200.1000, L300.3900, L500.4050, L503.6005, L300.4310, L100.0100 ####[facility] [address] [place], [address] WBC (Bld) [#/Vol] 9.0 10*3/uL Normal 4.4-11.0 [facility] Comment on above: Performed By: #### M 200.1000, L300.3900, L500.4050, L503.6005, L300.4310, L100.0100 ####[facility] [address] [place], [address] Chest 1 View (Portable)on Chest 1 View (Portable) Normal [facility] Comprehensive Metabolic Prof ilon 09-12-2024 Albumin [Mass/Vol] 3.9 g/dL Normal 3.4-4.8 [facility] Comment on above: Performed By: #### M 200.1000, L300.3900, L500.4050, L503.6005, L300.4310, L100.0100 ####[facility] [address] [place], [address] Albumin/Globulin [Mass ratio] 1.5 {ratio} Normal 0.9-2.4 [facility] Comment on above: Performed By: #### M 200.1000, L300.3900, L500.4050, L503.6005, L300.4310, L100.0100 ####[facility] [address] [place], [address] ALK PHOS 78 U/L Normal 35-104 [facility] Comment on above: Performed By: #### M 200.1000, L300.3900, L500.4050, L503.6005, L300.4310, L100.0100 ####[facility] [address] [place], [address] ALT [Catalytic activity/Vol] 17 U/L Normal <=34 [facility] Comment on above: Performed By: #### M 200.1000, L300.3900, L500.4050, L503.6005, L300.4310, L100.0100 ####[facility] [address] [place], [address] Anion gap [Moles/Vol] 12 mmol/L Normal 5-15 [facility] Comment on above: Performed By: #### M 200.1000, L300.3900, L500.4050, L503.6005, L300.4310, L100.0100 ####[facility] [address] [place], [address] AST [Catalytic activity/Vol] 28 U/L Normal <=31 [facility] Comment on above: Performed By: #### M 200.1000, L300.3900, L500.4050, L503.6005, L300.4310, L100.0100 ####[facility] [address] [place], [address] Bilirubin [Mass/Vol] 0.69 mg/dL Normal 0.00-1.30 [facility] Comment on above: Performed By: #### M 200.1000, L300.3900, L500.4050, L503.6005, L300.4310, L100.0100 ####[facility] [address] [place], [address] BUN/CRE 10.2 RATIO Normal 10-20 [facility] Comment on above: Performed By: #### M 200.1000, L300.3900, L500.4050, L503.6005, L300.4310, L100.0100 ####[facility] [address] [place], [address] Calcium [Mass/Vol] 9.0 mg/dL Normal 7.6-11.0 [facility] Comment on above: Performed By: #### M 200.1000, L300.3900, L500.4050, L503.6005, L300.4310, L100.0100 ####[facility] [address] [place], [address] Chloride [Moles/Vol] 103 mmol/L Normal 96-108 [facility] Comment on above: Performed By: #### M 200.1000, L300.3900, L500.4050, L503.6005, L300.4310, L100.0100 ####[facility] [address] [place], [address] CO2 [Moles/Vol] 24.2 mmol/L Normal 22.0-29.0 [facility] Comment on above: Performed By: #### M 200.1000, L300.3900, L500.4050, L503.6005, L300.4310, L100.0100 ####[facility] [address] [place], [address] Creatinine [Mass/Vol] 1.4 mg/dL High 0.6-1.0 [facility] Comment on above: Performed By: #### M 200.1000, L300.3900, L500.4050, L503.6005, L300.4310, L100.0100 ####[facility] [address] [place], [address] ECRCL 53.30 ml/min Normal [facility] Comment on above: Performed By: #### M 200.1000, L300.3900, L500.4050, L503.6005, L300.4310, L100.0100 ####[facility] [address] [place], [address] GFR/1.73 sq M.predicted among non-blacks MDRD (S/P/Bld) [Vol rate/Area] 44 mL/min/{1.73_m2} Low >60 [facility] Comment on above: Result Comment: mL/m in/1.73m2 CKD-EPI Creatinine Equation (2020) Performed By: #### M 200.1000, L300.3900, L500.4050, L503.6005, L300.4310, L100.0100 ####[facility] [address] [place], [address] Globulin (S) [Mass/Vol] 2.6 g/dL Normal 2.2-4.2 [facility] Comment on above: Performed By: #### M 200.1000, L300.3900, L500.4050, L503.6005, L300.4310, L100.0100 ####[facility] [address] [place], [address] Glucose [Mass/Vol] 117 mg/dL High 70-99 [facility] Comment on above: Performed By: #### M 200.1000, L300.3900, L500.4050, L503.6005, L300.4310, L100.0100 ####[facility] [address] [place], [address] Potassium [Moles/Vol] 3.6 mmol/L Normal 3.3-5.1 [facility] Comment on above: Performed By: #### M 200.1000, L300.3900, L500.4050, L503.6005, L300.4310, L100.0100 ####[facility] [address] [place], [address] Sodium [Moles/Vol] 139 mmol/L Normal 133-145 [facility] Comment on above: Performed By: #### M 200.1000, L300.3900, L500.4050, L503.6005, L300.4310, L100.0100 ####[facility] [address] [place], [address] T PROT 6.5 g/dL Normal 5.9-8.4 [facility] Comment on above: Performed By: #### M 200.1000, L300.3900, L500.4050, L503.6005, L300.4310, L100.0100 ####[facility] [address] [place], [address] Urea nitrogen [Mass/Vol] 14 mg/dL Normal 4-19 [facility] Comment on above: Performed By: #### M 200.1000, L300.3900, L500.4050, L503.6005, L300.4310, L100.0100 ####[facility] [address] [place], [address] Echo Completeon 09-12-2024 Echo Complete Normal [facility] Emergency Department Summary on 09-12-2024 Emergency Department Summary Normal [facility] Epithelial cells.squamous LM Ql (Urine sed)Ordered By: Randy Cabrales on 09-12-2024 Epithelial cells.squamous LM.HPF (Urine sed) [#/Area] 0 /[HPF] 5-10 [facility] Glucose Ql (U)Ordered By: Garry Cabrales on 09-12-2024 Urine Glucose (UA) Normal mg/dl Normal [facility] H AND P Exam - Hospitaliston 09-12-2024 H&P Exam - Hospitalist Normal [facility] Influenza virus A and B and SARS-CoV-2 (COVID-19) and Respiratory syncytial virus RNAOrdered By: Randy Cabrales on 09-12-2024 SARS-CoV-2 (COVID-19) RNA GERARDO+probe Ql (Unsp spec) SARS-CoV-2 (COVID 19) Abnormal [facility] SARS-CoV-2 (COVID-19) RNA GERARDO+probe Ql (Unsp spec) SARS-CoV-2 (COVID 19) Abnormal [facility] International normalized rat io (INR) calculationOrdered By: Randy Cabrales on 09-12-2024 INR Coag (Bld) [Relative time] 1.3 {INR} [facility] Ketones Test strip Ql (U)Ord ered By: Randy Cabrales on 09-12-2024 Ketones Ql (U) Negative Negative [facility] L499.0042on 09-12-2024 Trop T Delta 4 Normal [facility] Comment on above: Result Comment: If c linical suspicion for ACS is high, suggest getting athird troponin. Otherwise, stress test or CTCA. Performed By: #### L 499.0042 ####[facility] [address] [place], [address] Trop T High Sen 19 ng/L High <=14 [facility] Comment on above: Performed By: #### L 499.0042 ####[facility] [address] [place], [address] L499.0043on 09-12-2024 Trop T Delta 3 Normal [facility] Comment on above: Result Comment: Down stream testing and, if negative, consider otheretiologies for elevated troponin. Performed By: #### L 499.0043 ####[facility] [address] [place], [address] Trop T High Sen 20 ng/L High <=14 [facility] Comment on above: Performed By: #### L 499.0043 ####[facility] [address] [place], [address] L501.4021on 09-12-2024 Trop T High Sen 23 ng/L High <=14 [facility] Comment on above: Performed By: #### L 501.4021 ####[facility] [address] [place], [address] L503.7505on 09-12-2024 Natriuretic peptide B (Bld) [Mass/Vol] 130 pg/mL Normal <=900 [facility] Comment on above: Result Comment: Hear t Failure Unlikely: < 300 pg/mLHeart Failure Likely< 50 Years: > 450 pg/mL50-75 Years: > 900 pg/mL>75 Years: > 1800 pg/mL HF Unlikely: <300 pg/mL HF Likely: <50 years: >450 pg/mL 50 - 75 years: >900 pg/mL >75 years: >1800 pg/mL Performed By: #### L 503.7505 ####[facility] [address] [place], [place], [address] Laboratory - Chemistry and C hemistry - challengeOrdered By: Randy Cabrales on 09-12-2024 AST [Catalytic activity/Vol] 28 U/L <32 [facility] Natriuretic peptide B (Bld) [Mass/Vol] 130 pg/mL <900 [facility] Comment on above: Heart Failure Unlike ly: < 300 pg/mLHeart Failure Likely< 50 Years: > 450 pg/mL50-75 Years: > 900 pg/mL>75 Years: > 1800 pg/mL HF Unlikely: <300 pg/mL HF Likely: <50 years: >450 pg/mL 50 - 75 years: >900 pg/mL >75 years: >1800 pg/mL Lactic Acidon 09-12-2024 Lactate [Moles/Vol] 1.6 mmol/L Normal 0.0-2.0 [facility] Comment on above: Order Comment: Y Performed By: #### M 200.1000, L300.3900, L500.4050, L503.6005, L300.4310, L100.0100 ####[facility] [address] [place], [address] Lactic acid measurementOrder ed By: Randy Cabrales on 09-12-2024 Lactate [Moles/Vol] 1.6 mmol/L 0.0-2.0 [facility] M100.678on 09-12-2024 M100.678 Normal [facility] Comment on above: Performed By: #### M 100.2200, M100.678, L400.0001 ####[facility] [address] [place], [place], [address] MRA Head ONLY without Contra ston 09-12-2024 MRA Head ONLY without Contrast Normal [facility] MRA Neck without Contraston 09-12-2024 MRA Neck without Contrast Normal [facility] Magnetic resonance imaging r eportOrdered By: Elijah Rodriguez on 09-12-2024 Study report [facility] Imaging Services [address] [place], [place] [id number] Brain without Contrast MR#: [id number] Acct: [id number] Name: PERNELL RODRIGUEZ #: [id number] : 1960 F 64 From: Thuy Rodriguez DO PCP: Dr. Homer Bradford MD Status: ADM IN Study:Brain without Contrast Date of Exam: 09/12/24 Exam# [id number] Ordering Dr: Wilfredo Denton DO PROCEDURE: Noncontrast [...] as above. Partially empty sella. [facility]: Dr. Wilfredo Denton DO; Dr. Homer Bradford MD ~ 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: Signed [facility] Study report [facility] Imaging Services [address] [place] [id number] MRA Neck without Contrast MR#: [id number] Acct: [id number] Name: PERNELL RODRIGUEZ Rep #: [id number] : 1960 F 64 From: Thuy Rodriguez DO PCP: Dr. Homer Bradford MD Status: ADM IN Study:MRA Neck without Contrast Date of Exam: 09/12/24 Exam# [id number] Ordering Dr: Wilfredo Denton DO PROCEDURE: Noncontrast MRA of the neck. REASON FOR EXAM: Stroke. Abnormal head CT TECHNIQUE: Axial 2D [id number] noncontrast MRA images of the neck were [...] Denton DO; Dr. Homer Bradford MD ~ 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: Signed [facility] Study report [facility] Imaging Services [address] [place] [id number] MRA Head ONLY without Contrast MR#: [id number] Acct: [id number] Name: PERNELL RODRIGUEZ [place] Rep #: [id number] 2 : 1960 F 64 From: Thuy Rodriguez DO PCP: Dr. Hmoer Bradford MD Status: ADM IN Study:MRA Head ONLY without Contrast Date of Exam: 09/12/24 Exam# [id number] Ordering Dr: Wilfredo Denton DO PROCEDURE: Noncontrast [...] Denton, ; Dr. Homer Bradford MD ~ 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: Signed [facility] Microscopic analysis of urin e for red blood cells (RBC)Ordered By: Randy Cabrales on 09-12-2024 Urine RBC 0-5 SEEN /hpf 0-5 [facility] Mucus LM Ql (Urine sed)Order ed By: Randy Cabrales on 09-12-2024 Mucus Ql (Urine sed) 0 SEEN /hpf [facility] Nitrite Test strip Ql (U)Ord ered By: Randy Cabrales on 09-12-2024 Nitrite Ql (U) Negative Negative [facility] No Panel InformationOrdered By: Randy Cabrales on 09-12-2024 Delta Troponin T 4 [facility] Comment on above: If clinical suspicio n for ACS is high, suggest getting a third troponin. Otherwise, stress test or CTCA. 4 [facility] Troponin T High Sensitivity 23 ng/L High <14 [facility] 23 ng/L High <14 [facility] 28 U/L <32 [facility] 130 pg/mL <900 [facility] Partial Thromboplast Timeon 09-12-2024 aPTT Coag (Bld) [Time] 30.9 s Normal 24.1-36.2 [facility] Comment on above: Performed By: #### M 200.1000, L300.3900, L500.4050, L503.6005, L300.4310, L100.0100 ####[facility] [address] [place], [address] Protein Test strip Ql (U)Ord ered By: Randy Cabrales on 09-12-2024 Protein Ql (U) Negative Negative [facility] Prothrombin Time w/INRon INR Coag (PPP) [Relative time] 1.3 {INR} Normal [facility] Comment on above: Performed By: #### M 200.1000, L300.3900, L500.4050, L503.6005, L300.4310, L100.0100 ####[facility] [address] [place], [address] PT Coag (PPP) [Time] 16.1 s High 11.7-14.9 [facility] Comment on above: Performed By: #### M 200.1000, L300.3900, L500.4050, L503.6005, L300.4310, L100.0100 ####[facility] [address] [place], [address] Prothrombin timeOrdered By: Randy Cabrales on 09-12-2024 PT Coag (PPP) [Time] 16.1 s High 11.7-14.9 [facility] Serum globulin measurementOr dered By: Randy Cabrales on 09-12-2024 Globulin (S) [Mass/Vol] 2.6 g/dL 2.2-4.2 [facility] Serum or plasma alanine obregon otransferase (ALT) measurementOrdered By: Randy Cabrales on 09-12-2024 ALT [Catalytic activity/Vol] 17 U/L <35 [facility] Serum or plasma albumin dane urement (mass/volume)Ordered By: Randy Cabrales on 09-12-2024 Albumin [Mass/Vol] 3.9 g/dL 3.4-4.8 [facility] Serum or plasma albumin/glob ulin mass ratioOrdered By: Randy Cabrales on 09-12-2024 Albumin/Globulin [Mass ratio] 1.5 {ratio} 0.9-2.4 [facility] Serum or plasma alkaline ruddy sphatase measurementOrdered By: Randy Cabrales on 09-12-2024 ALP [Catalytic activity/Vol] 78 U/L 35-104 [facility] Squamous epithelial cells de tection in urine sediment by light microscopyOrdered By: Randy Cabrales on 09-12-2024 Epithelial cells.squamous LM Ql (Urine sed) 0 SEEN /hpf 5-10 [facility] Total proteinOrdered By: Barrett Cabrales on 09-12-2024 Protein [Mass/Vol] 6.5 g/dL 5.9-8.4 [facility] Troponin T.cardiac High sens itivity method [Mass/Vol]Ordered By: Randy Cabrales on 09-12-2024 Troponin T High Sensitivity 4 Hour 20 ng/L High <14 [facility] Troponin T High Sensitivity 2 Hour 19 ng/L High <14 [facility] Troponin T.cardiac [Mass/vol ume] in Serum or Plasma by High sensitivity methodOrdered By: Randy Cabrales on 09-12-2024 Troponin T.cardiac High sensitivity method [Mass/Vol] 20 ng/L High <14 [facility] Troponin T.cardiac High sensitivity method [Mass/Vol] 19 ng/L High <14 [facility] Urinalysis, Completeon 09-12 RBC 0-5 SEEN Normal 0-5 [facility] Comment on above: Order Comment: BRUCE CTOR TO SPECIFY Performed By: #### M 100.2200, M100.678, L400.0001 ####[facility] [address] [place], [address] BACTERIA 0 SEEN Normal None Seen [facility] Comment on above: Order Comment: BRUCE CTOR TO SPECIFY Performed By: #### M 100.2200, M100.678, L400.0001 ####[facility] [address] [place], [address] EPI,SQUAMOUS 0 SEEN Normal 5-10 [facility] Comment on above: Order Comment: BRUCE CTOR TO SPECIFY Performed By: #### M 100.2200, M100.678, L400.0001 ####[facility] [address] [place], [address] Mucus Ql (Urine sed) 0 SEEN Normal [facility] Comment on above: Order Comment: COLLE CTOR TO SPECIFY Performed By: #### M 100.2200, M100.678, L400.0001 ####[facility] [address] [place], [address] WBC 0 SEEN Normal 0-5 [facility] Comment on above: Order Comment: COLLE CTOR TO SPECIFY Performed By: #### M 100.2200, M100.678, L400.0001 ####[facility] [address] [place], [address] Urine blood detectionOrdered By: Randy Cabrales on 09-12-2024 Urine Occult Blood 50 /ul High Negative [facility] Urine clarityOrdered By: Barrett Cabrales on 09-12-2024 Clarity (U) Clear Clear [facility] Urine color determinationOrd ered By: Randy Cabrales on 09-12-2024 Color (U) Yellow Yellow [facility] Urine cultureOrdered By: Barrett Cabrales on 09-12-2024 Bacteria identified Cx Nom (U) Culture exhibits no growth. [facility] Bacteria identified Cx Nom (U) Culture exhibits no growth. [facility] Urine glucose detectionOrder ed By: Randy Cabrales on 09-12-2024 Glucose Ql (U) Normal mg/dl Normal [facility] Urine leukocyte esterase det ection by dipstickOrdered By: Randy Cabrales on 09-12-2024 Leukocyte esterase Test strip Ql (U) Negative Negative [facility] Urine pHOrdered By: Randy gale on 09-12-2024 pH (U) 6.0 [pH] 5.0 - 8.0 [facility] Urine sediment bacteria coun t by microscopy (number/high power field)Ordered By: Randy Cabrales on 09-12-2024 Bacteria LM.HPF (Urine sed) [#/Area] 0 /[HPF] None Seen [facility] Urine specific gravity measu rementOrdered By: Randy Cabrales on 09-12-2024 Specific gravity (U) [Rel density] 1.010 1.002-1.030 [facility] Urine urobilinogen measureme ntOrdered By: Randy Cabrales on 09-12-2024 Urobilinogen Ql (U) Normal mg/dl Normal [facility] Urobilinogen Ql (U)Ordered B y: Randy Cabrales on 09-12-2024 Urine Urobilinogen Normal mg/dl Normal [facility] White blood cell countOrdere d By: Randy Cabrales on 09-12-2024 Urine WBC 0 SEEN /hpf 0-5 [facility] White blood cell count 0 SEEN /hpf 0-5 [facility] aPTT Coag (PPP) [Time]Ordere d By: Randy Cabrales on 09-12-2024 aPTT Coag (Bld) [Time] 30.9 s 24.1-36.2 [facility] Thin prep Papanicolaou smear with manual screeningOrdered By: Jennifer Alba on 11-24-2023 Thin prep Papanicolaou smear with manual screening 104 mg/dL 74-106 [facility] Comment on above: MANAGEMENT OF PATIEN T CARE PER NURSING PROTOCOL Basophil percentageOrdered B y: Jennifer Alba on 11-15-2023 Chloride [Moles/Vol] 107 mmol/L 98-107 [facility] Glucose [Mass/Vol] 108 mg/dL 74-106 [facility] Comment on above: Fasting Glucose resu lt from 100 to 125 mg/dL suggests IMPAIRED HOMEOSTASIS per A.D.A. criteria. Hemoglobin (Bld) [Mass/Vol] 15.9 g/dL 12.0-15.0 [facility] Potassium [Moles/Vol] 4.0 mmol/L 3.5-5.1 [facility] Comment on above: Slight Hemolysis, Re sult may be falsely increased. Sodium [Moles/Vol] 140 mmol/L 136-145 [facility] WBC (Bld) [#/Vol] 10.6 10*3/uL 4.4-11.0 [facility] Determination of erythrocyte mean corpuscular volume (MCV)Ordered By: Jennifer Alba on 11-15-2023 MCV (RBC) [Entitic vol] 97.6 fL 81-99 [facility] Erythrocyte distribution wid th ratioOrdered By: Jennifer Alba on 11-15-2023 Erythrocyte distribution width (RBC) [Ratio] 13.0 % 11.6-14.6 [facility] Erythrocyte distribution wid th standard deviationOrdered By: Jennifer Alba on 11-15-2023 Erythrocyte distribution width (RBC) [Entitic vol] 46.0 fL 35.1-43.9 [facility] Hematocrit Auto (Bld) [Volum e fraction]Ordered By: Jennifer Alba on 11-15-2023 Hematocrit (Bld) [Volume fraction] 48.2 % 37-47 [facility] Laboratory - Chemistry and C hemistry - challengeOrdered By: Jennifer Alba on 11-15-2023 CO2 [Moles/Vol] 27.0 mmol/L 21.0-32.0 [facility] Urea nitrogen/Creatinine [Mass ratio] 14.4 mg/mg 10-20 [facility] Laboratory - Hematology and Cell countsOrdered By: Jennifer Alba on 11-15-2023 MCH (RBC) [Entitic mass] 32.2 pg 27.0-32.0 [facility] MCHC (RBC) [Mass/Vol] 33.0 g/dL 32-36 [facility] Platelet mean volume (Bld) [Entitic vol] 10.9 fL 6.2-12.0 [facility] Platelets (Bld) [#/Vol] 264 10*3/uL 150-450 [facility] No Panel InformationOrdered By: Jennifer Alba on 11-15-2023 Estimated GFR (MDRD) Amer 37 mL/min >60 [facility] Comment on above: GFR Calc Estimated GFR (MDRD) Non-Af Amer 30 mL/min >60 [facility] Comment on above: Non- GFR Calc RBC Auto (Bld) [#/Vol]Ordere d By: Jennifer Alba on 11-15-2023 RBC (Bld) [#/Vol] 4.94 10*6/uL 4.2-5.4 [facility] Serum or plasma calcium dane urement (mass/volume)Ordered By: Jennifer Alba on 11-15-2023 Calcium [Mass/Vol] 9.1 mg/dL 8.5-10.1 [facility] Serum or plasma creatinine m easurement (mass/volume)Ordered By: Jennifer Alba on 11-15-2023 Creatinine [Mass/Vol] 1.81 mg/dL 0.55-1.02 [facility] Comment on above: The validity of the calculated GFR & GFRAA in patients over 70 years has not been determined. Clinical correlation is essential. Serum or plasma urea nitroge n measurement (mass/volume)Ordered By: Jennifer Alba on 11-15-2023 Urea nitrogen [Mass/Vol] 26 mg/dL 7-18 [facility] Thin prep Papanicolaou smear with manual screeningOrdered By: Jennifer Alba on 11-15-2023 Thin prep Papanicolaou smear with manual screening 6 5-15 [facility] Large Joint Arthro/Inj: L sh alfred jointon 11-11-2023 Jarod Godwin V, DO 11/11/2023 2:28 PM Large Joint Arthro/Inj: L shoulder joint Informed Consent Consent Obtained: Verbal [place] Protocol A moment to CARE was completed. [...] the patient voiced understanding of these instructions. [facility] ALBUMIN/CREAT RATIO RND URon 09-27-2023 Albumin DL <= 20 mg/L (U) [Mass/Vol] [facility] Albumin/Creatinine (U) [Mass ratio] <30 mg/g [facility] Creatinine (U) [Mass/Vol] 165.2 mg/dL 20.0 - 300.0 mg/dL [facility] CBC W Auto Differential pane l (Bld)on 09-27-2023 Basophils (Bld) [#/Vol] 0.03 10*3/uL <0.11 k/uL [facility] Basophils/100 WBC (Bld) 0.4 % C [facility] Differential cell count method Nom (Bld) Auto [facility] Eosinophils (Bld) [#/Vol] 0.19 10*3/uL <0.46 k/uL [facility] Eosinophils/100 WBC (Bld) 2.5 % [facility] Erythrocyte distribution width (RBC) [Ratio] 13.1 % 11.5 - 15.0 % [facility] Hematocrit (Bld) [Volume fraction] 46.7 % High 36.0 - 46.0 % [facility] Hemoglobin (Bld) [Mass/Vol] 15.2 g/dL 11.5 - 15.5 g/dL [facility] Immature granulocytes (Bld) [#/Vol] <0.10 k/uL [facility] Immature granulocytes/100 WBC (Bld) 0.3 % [facility] Lymphocytes (Bld) [#/Vol] 2.36 10*3/uL 1.00 - 4.00 k/uL [facility] Lymphocytes/100 WBC (Bld) 30.9 % [facility] MCH (RBC) [Entitic mass] 31.9 pg 26. 0 - 34.0 pg [facility] MCHC (RBC) [Mass/Vol] 32.5 g/dL 30.5 - 36.0 g/dL [facility] MCV (RBC) [Entitic vol] 97.9 fL 80.0 - 100.0 fL [facility] Monocytes (Bld) [#/Vol] 0.82 10*3/uL <0.87 k/uL [facility] Monocytes/100 WBC (Bld) 10.7 % C [facility] Neutrophils (Bld) [#/Vol] 4.22 10*3/uL 1.45 - 7.50 k/uL [facility] Neutrophils/100 WBC (Bld) 55.2 % [facility] Nucleated RBC (Bld) [#/Vol] <0.01 k/uL [facility] Nucleated RBC/100 WBC (Bld) [Ratio] 0.0 /100 WBC [facility] Platelet mean volume (Bld) [Entitic vol] 11.0 fL 9.0 - 12.7 fL [facility] Platelets (Bld) [#/Vol] 276 10*3/uL 150 - 400 k/uL [facility] RBC (Bld) [#/Vol] 4.77 10*6/uL 3.90 - 5.2 0 m/uL [facility] WBC (Bld) [#/Vol] 7.64 10*3/uL 3.70 - 11.00 k/uL [facility] Comprehensive metabolic 2000 panelon 09-27-2023 Albumin [Mass/Vol] 4.0 g/dL 3.9 - 4.9 g/dL [facility] ALP [Catalytic activity/Vol] 67 U/L 34 - 123 U/L [facility] ALT [Catalytic activity/Vol] 19 U/L 7 - 38 U/L [facility] Anion gap [Moles/Vol] 11 mmol/L 9 - 18 mmol/L [facility] AST [Catalytic activity/Vol] 25 U/L 13 - 35 U/L [facility] Bilirubin [Mass/Vol] 0.4 mg/dL 0.2 - 1 .3 mg/dL [facility] Calcium [Mass/Vol] 9.2 mg/dL 8.5 - 10. 2 mg/dL [facility] Chloride [Moles/Vol] 103 mmol/L 97 - 10 5 mmol/L [facility] CO2 [Moles/Vol] 27 mmol/L 22 - 30 mmol/L [facility] Creatinine [Mass/Vol] 1.66 mg/dL High 0.58 - 0.96 mg/dL [facility] Estimated Glomerular Filtration Rate 35 mL/min/1.73m Low >=60 mL/min/1.73 m [facility] Glucose [Mass/Vol] 99 mg/dL 74 - 99 mg/dL [facility] Potassium [Moles/Vol] 4.1 mmol/L 3.7 - 5.1 mmol/L [facility] Protein [Mass/Vol] 6.8 g/dL 6.3 - 8.0 g/dL [facility] Sodium [Moles/Vol] 141 mmol/L 136 - 144 mmol/L [facility] Urea nitrogen [Mass/Vol] 18 mg/dL 7 - 21 mg/dL [facility] LIPID PANEL, NONFASTINGon Cholesterol [Mass/Vol] 161 mg/dL <200 mg/dL [facility] HDL Cholesterol, Nonfasting 44 mg/dL >39 mg/dL [facility] LDL Cholesterol, Nonfasting 87 mg/dL <100 mg/dL [facility] LDL/HDL Ratio, Nonfasting 1.98 mg/dL <2.54 mg/dL [facility] Non HDL Cholesterol, Nonfasting 117 mg/dL <130 mg/dL [facility] Total Chol/HDL Ratio, Nonfasting 3.66 mg/dL <5.10 mg/dL [facility] Triglycerides, Nonfasting 152 mg/dL High <150 mg/dL [facility] VLDL Cholesterol, Nonfasting 30 mg/dL High <30 mg/dL [facility] Urinalysis complete panel (U )on 09-27-2023 Bacteria uL 2677.7 uL High Negative uL [facility] Bilirubin Ql (U) Negative Negative [facility] Calcium Oxalate Crystals Few Abnormal Non e Seen /HPF [facility] Clarity (Unsp spec) Clear Clear [facility] Color (U) Yellow Yellow [facility] Epithelial cells LM.HPF (Urine sed) [#/Area] Few [facility] Glucose Test strip (U) [Mass/Vol] Negative Negative [facility] Hemoglobin Ql (U) Negative Negative [facility] Hyaline casts (Urine sed) [#/Area] 1-3 /LPF Abnormal 0 /LPF [facility] Ketones Ql (U) Negative Negative [facility] Leukocyte esterase Test strip Ql (U) 1+ Abnormal Negative [facility] Nitrite Ql (U) Negative Negative [facility] pH (U) 5.5 [pH] <8.5 [facility] Protein (U) [Mass/Vol] Negative Negative [facility] RBC LM.HPF (Urine sed) [#/Area] 3-5 /HPF Abnormal 0-2 /HPF [facility] Specific gravity (U) [Rel density] 1.017 1.005 - 1.030 [facility] Urobilinogen Ql (U) 1.0 EU/dL 0.2-1.0 EU/dL [facility] WBC LM.HPF (Urine sed) [#/Area] 11-20 /HPF Abnormal 0-5 /HPF [facility] Absolute lymphocyte countOrd ered By: Marvel Pierce on 03-28-2023 Lymphocytes Auto (Unsp spec) [#/Vol] 3.15 10*3/uL 0.83-4.51 [facility] Basophil percentageOrdered B y: Marvel Pierce on 03-28-2023 Basophils/100 WBC (Bld) 0.4 % 0-1 [facility] Eosinophils/100 WBC (Bld) 2.5 % 0-5 [facility] Neutrophils (Bld) [#/Vol] 5.6 10*3/uL 2.0-7.7 [facility] Neutrophils/100 WBC (Bld) 56.0 % 47-70 [facility] WBC (Bld) [#/Vol] 9.9 10*3/uL 4.4-11.0 [facility] Blood erythrocytes count (nu mber/volume)Ordered By: Marvel Pierce on 03-28-2023 RBC (Bld) [#/Vol] 4.49 10*6/uL 4.2-5.4 [facility] Blood hemoglobin measurement (mass/volume)Ordered By: Marvel Pierce on 03-28-2023 Hemoglobin (Bld) [Mass/Vol] 14.4 g/dL 12.0-15.0 [facility] Blood lymphocytes/100 leukoc ytesOrdered By: Marvel Pierce on 03-28-2023 Lymphocytes/100 WBC (Bld) 31.7 % 19-41 [facility] Blood monocytes/100 leukocyt esOrdered By: Marvel Pierce on 03-28-2023 Monocytes/100 WBC (Bld) 9.2 % 0-10 [facility] Blood platelet mean volumeOr dered By: Marvel Pierce on 03-28-2023 Platelet mean volume (Bld) [Entitic vol] 10.3 fL 6.2-12.0 [facility] Determination of erythrocyte mean corpuscular volume (MCV)Ordered By: Marvel Pierce on 03-28-2023 MCV (RBC) [Entitic vol] 100.2 fL 81-99 [facility] Hematocrit Auto (Bld) [Volum e fraction]Ordered By: Marvel Pierce on 03-28-2023 Hematocrit (Bld) [Volume fraction] 45.0 % 37-47 [facility] INR in Blood by Coagulation assayOrdered By: Marvel Pierce on 03-28-2023 INR Coag (Bld) [Relative time] 1.0 {INR} [facility] Laboratory - CoagulationOrde red By: Marvel Pierce on 03-28-2023 aPTT Coag (Bld) [Time] 27.9 s 24.1-36.2 [facility] PT Coag (PPP) [Time] 12.8 s 11.7-14.9 [facility] Laboratory - Hematology and Cell countsOrdered By: Marvel Pierce on 03-28-2023 Erythrocyte distribution width (RBC) [Entitic vol] 49.8 fL 35.1-43.9 [facility] Erythrocyte distribution width (RBC) [Ratio] 13.4 % 11.6-14.6 [facility] Immature granulocytes/100 WBC (Bld) 0.200 % 0.0-0.9 [facility] Comment on above: IG% - Immature Granu locytes (promyelocytes, myelocytes and metamyelocytes) > 1% indicates that a LEFT SHIFT is Present. MCH (RBC) [Entitic mass] 32.1 pg 27.0-32.0 [facility] Nucleated RBC/100 WBC (Bld) [Ratio] 0 % 0-5 [facility] MCHC Auto (RBC) [Mass/Vol]Or dered By: Marvel Pierce on 03-28-2023 MCHC (RBC) [Mass/Vol] 32.0 g/dL 32-36 [facility] Platelets bldOrdered By: Ye Pierce on 03-28-2023 Platelets (Bld) [#/Vol] 269 10*3/uL 150-450 [facility] INR in Blood by Coagulation assayOrdered By: Taylor Julian on 03-04-2023 INR Coag (Bld) [Relative time] 1.0 {INR} [facility] Laboratory - CoagulationOrde red By: Taylor Julian on 03-04-2023 aPTT Coag (Bld) [Time] 28.9 s 24.1-36.2 [facility] PT Coag (PPP) [Time] 13.5 s 11.7-14.9 [facility] Platelets bldOrdered By: Jesus Julian on 03-04-2023 Platelets (Bld) [#/Vol] 230 10*3/uL 150-450 [facility] HbA1c (Bld)on 02-28-2023 Average glucose Estimated from glycated hemoglobin (Bld) [Mass/Vol] 123 mg/dL [facility] HbA1c (Bld) [Mass fraction] 5.9 % High 4.3 - 5.6 % [facility] .Auto Diffon 12-21-2021 Basophil, Absolute 0.0 10 3/mcL Normal 0.0-0.2 [facility] ([place]) Comment on above: Performed By: #### Elda TALAVERA, BMP #### [address] [address] Basophils/100 WBC (Bld) 0.3 % Normal 0.0-2.5 [facility] ([place]) Comment on above: Performed By: #### Elda TALAVERA, BMP #### [address] [address] Eosinophil, Absolute 0.1 10 3/mcL Normal 0.0-0.4 [facility] ([place]) Comment on above: Performed By: #### Elda TALAVERA, BMP #### [address] [address] Eosinophils/100 WBC (Bld) 0.6 % Normal 0.0-7.0 [facility] ([place]) Comment on above: Performed By: #### Elda TALAVERA, BMP #### [address] [address] Lymphocyte, Absolute 2.8 10 3/mcL Normal 0.8-3.9 [facility] ([place]) Comment on above: Performed By: #### Elda TALAVERA, BMP #### [address] [address] Lymphocytes/100 WBC (Bld) 20.6 % Normal 10.0-50.0 [facility] ([place]) Comment on above: Performed By: #### Elda TALAVERA, BMP #### [address] [address] Monocyte, Absolute 1.5 10 3/mcL High 0.2-1.0 [facility] ([place]) Comment on above: Performed By: #### Elda TALAVERA, BMP #### [address] [place], [place] [address] Monocytes/100 WBC (Bld) 11.4 % Normal 1.7-13.0 [facility] ([place]) Comment on above: Performed By: #### G , BMP #### [id number] [place], [place] [address] Neutrophils/100 WBC (Bld) 67.1 % Normal 37.0-80.0 [facility] ([place]) Comment on above: Performed By: #### Elda TALAVERA, BMP #### Matt [address] [address] .GFRon 12-21-2021 GFR Non- 25 ml/min/1.73sqm Normal [facility] ([place]) Comment on above: Result Comment: GFR [...] Performed By: #### G , BMP #### [address] [address] GFR 30 ml/min/1.73sqm Normal [facility] ([place]) Comment on above: Result Comment: GFR [...] Performed By: #### Elda TALAVERA, BMP #### [address] [address] .MDWon 12-21-2021 Monocyte Distribution Width 15.87 Normal 0.00-20.00 [facility] ([place]) Comment on above: Result Comment: For ED adult patients suspected of sepsis, MDW<=20.0 does not rule out sepsis or risk of sepsis Performed By: #### Elda TALAVERA, BMP #### [address] [address] .NEUABSon 12-21-2021 Neutrophil, Absolute 9.0 10 3/mcL High 2.9-6.2 [facility] ([place]) Comment on above: Performed By: #### Elda TALAVERA, BMP #### [address] [address] BMPon 12-21-2021 BUN/Creatinine Ratio 9 ratio Normal 7-27 [facility] ([place]) Comment on above: Performed By: #### Elda TALAVERA, BMP #### [address] [address] Calcium [Mass/Vol] 10.3 mg/dL High 8.4-10.2 [facility] ([place]) Comment on above: Performed By: #### Elda TALAVERA, BMP #### [address] [address] Chloride [Moles/Vol] 108 mmol/L High 98-107 [facility] ([place]) Comment on above: Performed By: #### Elda TALAVERA, BMP #### [address] [address] CO2 [Moles/Vol] 21 mmol/L Low 22-29 [facility] ([place]) Comment on above: Performed By: #### Elda TALAVERA, BMP #### [address] [address] Creatinine [Mass/Vol] 2.07 mg/dL High 0.55-1.02 [facility] ([place]) Comment on above: Performed By: #### G FR, BMP #### [address] [address] Electrolyte Balance 16.0 mEq/L High 4.0-15.0 [facility] ([place]) Comment on above: Performed By: #### G FR, BMP #### [address] [address] Glucose [Mass/Vol] 118 mg/dL High 70-105 [facility] ([place]) Comment on above: Performed By: #### G FR, BMP #### [address] [address] Potassium [Moles/Vol] 3.4 mmol/L Low 3.5-5.1 [facility] ([place]) Comment on above: Performed By: #### G FR, BMP #### [address] [address] Sodium [Moles/Vol] 145 mmol/L Normal 136-145 [facility] ([place]) Comment on above: Performed By: #### G FR, BMP #### [address] [address] Urea nitrogen [Mass/Vol] 19 mg/dL High 7-18 [facility] ([place]) Comment on above: Performed By: #### G FR, BMP #### [address] [address] CBCon 12-21-2021 Erythrocyte distribution width (RBC) [Ratio] 13.2 % Normal 11.5-14.5 [facility] ([place]) Comment on above: Performed By: #### G FR, BMP #### [address] [address] Hematocrit (Bld) [Volume fraction] 43.7 % Normal 37.0-47.0 [facility] ([place]) Comment on above: Performed By: #### G FR, BMP #### [address] [address] Hgb 14.4 G/dL Normal 12.0-16.0 [facility] ([place]) Comment on above: Performed By: #### G FR, BMP #### [address] [address] MCH (RBC) [Entitic mass] 31.5 pg High 27.0-31.2 [facility] ([place]) Comment on above: Performed By: #### G FR, BMP #### [address] [address] MCHC 32.9 G/dL Low 33.0-37.0 [facility] ([place]) Comment on above: Performed By: #### G FR, BMP #### [address] [address] MCV (RBC) [Entitic vol] 95.8 fL High 80.0-94.0 [facility] ([place]) Comment on above: Performed By: #### Elda TALAVERA, BMP #### [address] [address] Platelet 272 10 3/mcL Normal 130-400 [facility] ([place]) Comment on above: Performed By: #### G , BMP #### [address] [address] Platelet mean volume (Bld) [Entitic vol] 9.0 fL Normal 7.4-10.4 [facility] ([place]) Comment on above: Performed By: #### G FR, BMP #### [address] [address] RBC 4.56 10 6/mcL Normal 4.20-5.40 [facility] ([place]) Comment on above: Performed By: #### G FR, BMP #### [address] [address] WBC 13.5 10 3/mcL High 4.6-10.8 [facility] ([place]) Comment on above: Performed By: #### G FR, BMP #### Matt [address] [address] LABORATORYOrdered By: Dior Marshall on 12-21-2021 Basophil, [...] Chloride [Moles/Vol] 106 mmol/L 98-[address] [facility] [facility] Work Phone: Glucose [Mass/Vol] 77 mg/dL 74-106 [facility] Work Phone: Potassium [Moles/Vol] 3.8 mmol/L 3.5-5.1 [facility] Work Phone: Sodium [Moles/Vol] 140 mmol/L 136-145 [facility] Work Phone: Glucose Glucometer (BldC) [M ass/Vol]on 09-07-2021 Glucose [Mass/Vol] 111 mg/dL 70-110 [facility] Work Phone: Comment on above: MANAGEMENT OF PATIEN T CARE PER NURSING PROTOCOL Laboratory - Chemistry and C hemistry - challengeon 09-07-2021 CO2 [Moles/Vol] 31.0 mmol/L 21.0-32.0 [facility] Work Phone: Urea nitrogen/Creatinine [Mass ratio] 35.1 mg/mg 10-20 [facility] Work Phone: No Panel Informationon 09-07 SARS-CoV-2 Antigen (Rapid) [facility] Work Phone: Estimated Creatinine Clearance Calc 56.94 ml/min [facility] Work Phone: Estimated GFR (MDRD) Amer 84 mL/min >60 [facility] Work Phone: Comment on above: GFR Calc Estimated GFR (MDRD) Non-Af Amer 69 mL/min >60 [facility] Work Phone: Comment on above: Non- GFR Calc Serum or plasma calcium dane urement (mass/volume)on 09-07-2021 Calcium [Mass/Vol] 8.5 mg/dL 8.5-10.1 [facility] Work Phone: Serum or plasma creatinine m easurement (mass/volume)on 09-07-2021 Creatinine [Mass/Vol] 0.88 mg/dL 0.55-1.02 [facility] Work Phone: Comment on above: The validity of the calculated GFR & GFRAA in patients over 70 years has not been determined. Clinical correlation is essential. Serum or plasma urea nitroge n measurement (mass/volume)on 09-07-2021 Urea nitrogen [Mass/Vol] 31 mg/dL 7-18 [facility] Work Phone: Thin prep Papanicolaou smear with manual screeningon 09-07-2021 Thin prep Papanicolaou smear with manual screening 3 5-15 [facility] Work Phone: Absolute lymphocyte counton 09-03-2021 Lymphocytes Auto (Unsp spec) [#/Vol] 0.78 10*3/uL 0.83-4.51 [facility] Work Phone: Basophil percentageon 2021 Basophils/100 WBC (Bld) 0.1 % 0-1 [facility] Work Phone: Eosinophils/100 WBC (Bld) 0.0 % 0-5 [facility] Work Phone: [phone] Neutrophils (Bld) [#/Vol] 8.2 10*3/uL 2.0-7.7 [facility] Work Phone: Neutrophils/100 WBC (Bld) 87.3 % 47-70 [facility] Work Phone: WBC (Bld) [#/Vol] 9.4 10*3/uL 4.4-11.0 [facility] Work Phone: Blood erythrocytes count (nu mber/volume)on 09-03-2021 RBC (Bld) [#/Vol] 4.19 10*6/uL 4.2-5.4 [facility] Work Phone: Blood hemoglobin measurement (mass/volume)on 09-03-2021 Hemoglobin (Bld) [Mass/Vol] 13.0 g/dL 12.0-15.0 [facility] Work Phone: Blood lymphocytes/100 leukoc yteson 09-03-2021 Lymphocytes/100 WBC (Bld) 8.3 % 19-41 [facility] Work Phone: Blood monocytes/100 leukocyt eson 09-03-2021 Monocytes/100 WBC (Bld) 3.2 % 0-10 [facility] Work Phone: Blood platelet mean volumeon 09-03-2021 Platelet mean volume (Bld) [Entitic vol] 11.1 fL 6.2-12.0 [facility] Work Phone: Determination of erythrocyte mean corpuscular volume (MCV)on 09-03-2021 MCV (RBC) [Entitic vol] 95.2 fL 81-99 [facility] Work Phone: Hematocrit Auto (Bld) [Volum e fraction]on 09-03-2021 Hematocrit (Bld) [Volume fraction] 39.9 % 37-47 [facility] Work Phone: Laboratory - Hematology and Cell countson 09-03-2021 Erythrocyte distribution width (RBC) [Entitic vol] 47.5 fL 35.1-43.9 [facility] Work Phone: Erythrocyte distribution width (RBC) [Ratio] 13.4 % 11.6-14.6 [facility] Work Phone: Immature granulocytes/100 WBC (Bld) 1.100 % 0.0-0.9 [facility] Work Phone: Comment on above: IG% - Immature Granu locytes (promyelocytes, myelocytes and metamyelocytes) > 1% indicates that a LEFT SHIFT is Present. MCH (RBC) [Entitic mass] 31.0 pg 27.0-32.0 [facility] Work Phone: Nucleated RBC/100 WBC (Bld) [Ratio] 0 % 0-5 [facility] Work Phone: MCHC Auto (RBC) [Mass/Vol]on 09-03-2021 MCHC (RBC) [Mass/Vol] 32.6 g/dL 32-36 [facility] Work Phone: Platelets bldon 09-03-2021 Platelets (Bld) [#/Vol] 317 10*3/uL 150-450 [facility] Work Phone: Blood manual differential co mment interpretation (narrative result)on 09-01-2021 Manual differential comment Jacobo (Bld) [Interp] SCANNED [facility] Work Phone: No Panel Informationon 09-01 Atypical Lymphocytes RARE % [facility] Work Phone: Basophil percentageon 2021 Bilirubin [Mass/Vol] 0.60 mg/dL 0.20-1.00 [facility] Work Phone: Comment on above: For patients on eltr ombopag therapy, use of Dimension [place] TBIL is not recommended. Protein [Mass/Vol] 5.9 g/dL 6.4-8.2 [facility] Work Phone: Laboratory - Chemistry and C hemistry - challengeon 08-31-2021 ALP [Catalytic activity/Vol] 90 U/L 45-117 [facility] Work Phone: ALT [Catalytic activity/Vol] 64 U/L 13-56 [facility] Work Phone: Globulin (S) [Mass/Vol] 3.8 g/dL 2.2-4.2 [facility] Work Phone: Serum or plasma albumin dane urement (mass/volume)on 08-31-2021 Albumin [Mass/Vol] 2.1 g/dL 3.2-5.0 [facility] Work Phone: Serum or plasma albumin/glob ulin mass ratioon 08-31-2021 Albumin/Globulin [Mass ratio] 0.6 {ratio} 0.9-2.4 [facility] Work Phone: Thin prep Papanicolaou smear with manual screeningon 08-31-2021 Thin prep Papanicolaou smear with manual screening 65 U/L 15-37 [facility] Work Phone: No Panel Informationon 08-26 SARS-CoV-2 IgM Antibody Negative Negative [facility] Work Phone: Comment on above: This sample does not contain detectable SARS-CoV-2 IgMantibodies. This negative result does not rule out SARS-CoV-2 infection. Correlation with epidemiologic risk factorsand other clinical and laboratory findings is recommended.Serologic results should not be used as the sole basis todiagnose or exclude recent SARS-CoV-2 infection.This assay detects antibodies against SARS-CoV-2 spikeprotein including the receptor binding domain (RBD).Performed at: [address] [id number] Director: Chris Guy PhD, Phone: [phone] D-Dimer Quantitative (PE/DVT) 12.66 FEU/ug/m 0.27-0.49 [facility] Work Phone: Comment on above: CRITICAL VALUE VERIF IED. CALLED TO VIVI [id number] Annie Saleh.RESULTS READ BACK BY SAME . D-Dimer ELEVATED (>0.49): Additional studies and clinicalassessments are indicated to conclude diagnosis of:Deep Vein Thrombosis (DVT) or Pulmonary Embolism (PE) Serum or plasma severe acute respiratory syndrome coronavirus 2 (SARS-CoV-2) IgG antion 08-26-2021 SARS-CoV-2 (COVID-19) IgG IA Ql 0.88 INDEX 0.00-0.99 [facility] Work Phone: Comment on above: It is [...] 1.0 Positive > or = 1.0Method: SIEMENS [employer] IM SARS SEMI-QUANT IGG ABS * This [...] due to past or present infection with [id number] coronovirus strains, such as coronavirus HKU1, NL63, OC43, or 229E. Basophil percentageon 2021 Basophil percentage 0-5 SEEN /hpf [facility] Work Phone: Lactate [Moles/Vol] 1.3 mmol/L 0.4-2.0 [facility] Work Phone: Bilirubin Test strip Ql (U)o n 08-25-2021 Bilirubin Ql (U) Negative Negative [facility] Work Phone: Blood platelet adequacy dete ction by light microscopyon 08-25-2021 Platelets LM Ql (Bld) ADEQUATE ADEQ [facility] Work Phone: Culture, urineon 08-25-2021 Bacteria identified Cx Nom (U) Culture exhibits no growth. [facility] Work Phone: HCO3 (BldA) [Moles/Vol]on HCO3 (Bld) [Moles/Vol] 29 mmol/L 22-26 [facility] Work Phone: INR in Blood by Coagulation assayon 08-25-2021 INR Coag (Bld) [Relative time] 1.1 {INR} [facility] Work Phone: Ketones Test strip Ql (U)on 08-25-2021 Ketones Ql (U) Negative Negative [facility] Work Phone: Laboratory - Chemistry and C hemistry - challengeon 08-25-2021 Magnesium [Mass/Vol] 2.2 mg/dL [facility] Work Phone: Comment on above: Performed at: [facility] Karl [address] [id number] Director: Chris Guy PhD, Phone: [phone] Natriuretic peptide B (Bld) [Mass/Vol] 124.5 pg/mL 0-100 [facility] Work Phone: CO2 [Moles/Vol] 31 mmol/L 23-33 [facility] Work Phone: Laboratory - Coagulationon 0 08-25-2021 aPTT Coag (Bld) [Time] 29.2 s 24.1-36.2 [facility] Work Phone: PT Coag (PPP) [Time] 14.0 s 11.7-14.9 [facility] Work Phone: Laboratory - Hematology and Cell countson 08-25-2021 Anisocytosis Ql (Bld) RARE [facility] Work Phone: Laboratory - Microbiology an d Antimicrobial susceptibilityon 08-25-2021 SARS-CoV-2 (COVID-19) RNA GERARDO+probe Ql (Unsp spec) Not detected Not Detect [facility] Work Phone: Comment on above: Normal Reference Ran ge: Not DetectedMethod:(RT-PCR) real-time reverse transcriptase PCRLuminex DWAYNE Instrument*The Food and Drug Administration (FDA) has issued an Emergency Use Authorization (EAU) for the [employer] SARS-CoV-2 Assay for the rapid detection of [...] Nom (Bld) No growth in 5 days. [facility] Work Phone: Macrocytes detectionon 08-25 Macrocytes Ql (Bld) RARE [facility] Work Phone: Mucus LM Ql (Urine sed)on Mucus Ql (Urine sed) 0 SEEN /hpf [facility] Work Phone: Nitrite Test strip Ql (U)on 08-25-2021 Nitrite Ql (U) Positive Negative [facility] Work Phone: No Panel Informationon 08-25 Methicillin-Resist S.aureus DNA PCR Negative Negative [facility] Work Phone: Bed Mix Venous Bld PCO2 at Pat Temp 45.0 mmHg 41-51 [facility] Work Phone: Blood Gas Liter Flow 8.0 /min [facility] Work Phone: Blood Gas Specimen Type TYRON [facility] Work Phone: Oxygen Delivery Device Cannula [facility] Work Phone: Venous Blood Base Excess 5 mmol/L -1.0-3.5 [facility] Work Phone: Ovalocyte detectionon 2021 Ovalocytes LM Ql (Bld) RARE [facility] Work Phone: PO2 venouson 08-25-2021 Oxygen (BldV) [Partial pressure] 26 mm[Hg] 25-40 [facility] Work Phone: Protein Test strip Ql (U)on 08-25-2021 Protein Ql (U) 15 mg/dl Negative [facility] Work Phone: RBC morphologyon 08-25-2021 RBC morphology finding Nom (Bld) N CHROM NORMAL NORM C&C [facility] Work Phone: Serum procalcitonin measurem enton 08-25-2021 Procalcitonin [Mass/Vol] 0.15 ng/mL 0.00-0.09 [facility] Work Phone: Comment on above: A procalcitonin [...] LM Ql (Urine sed) 0 SEEN /hpf [facility] Work Phone: Urine blood detectionon RBC Ql (U) 10 /ul Negative [facility] Work Phone: RBC Ql (U) 0 SEEN /hpf [facility] Work Phone: Urine clarityon 08-25-2021 Clarity (U) Clear Clear [facility] Work Phone: Urine color determinationon 08-25-2021 Color (U) Yellow Yellow [facility] Work Phone: Urine glucose detectionon Glucose Ql (U) Normal mg/dl Normal [facility] Work Phone: Urine leukocyte esterase det ection by dipstickon 08-25-2021 Leukocyte esterase Test strip Ql (U) Negative Negative [facility] Work Phone: Urine pHon 08-25-2021 pH (U) 6.0 [pH] [facility] Work Phone: Urine sediment bacteria coun t by microscopy (number/high power field)on 08-25-2021 Bacteria LM.HPF (Urine sed) [#/Area] 3 /[HPF] None Seen [facility] Work Phone: Urine specific gravity measu rementon 08-25-2021 Specific gravity (U) [Rel density] 1.010 [facility] Work Phone: Urobilinogen Auto test strip Ql (U)on 08-25-2021 Urobilinogen Ql (U) 1 mg/dl Normal [facility] Work Phone: Vital signson 08-25-2021 Oxygen saturation in Blood 49 % 50-70 [facility] Work Phone: pH measurementon 08-25-2021 pH (Unsp spec) 7.42 [pH] 7.32-7.42 [facility] Work Phone: .GFRon 02-11-2021 GFR 43 ml/min/1.73sqm Normal [facility] ([place]) Comment on above: Result Comment: GFR [...] Performed By: #### B MP, GFR #### [place] [address] GFR Non- 35 ml/min/1.73sqm Normal [facility] ([place]) Comment on above: Result Comment: GFR Population [...] Performed By: #### B MP, GFR #### [address] [address] BMPon 02-11-2021 BUN/Creatinine Ratio 13 ratio Normal 7-27 [facility] ([place]) Comment on above: Performed By: #### B MP, GFR #### [address] [address] Calcium [Mass/Vol] 9.6 mg/dL Normal 8.4-10.2 [facility] ([place]) Comment on above: Performed By: #### B MP, GFR #### [address] [address] Chloride [Moles/Vol] 106 mmol/L Normal 98-107 [facility] ([place]) Comment on above: Performed By: #### B MP, GFR #### [address] [address] CO2 [Moles/Vol] 30 mmol/L High 22-29 [facility] ([place]) Comment on above: Performed By: #### B MP, GFR #### [address] [address] Creatinine [Mass/Vol] 1.51 mg/dL High 0.55-1.02 [facility] ([place]) Comment on above: Performed By: #### B MP, GFR #### [address] [address] Electrolyte Balance 6.0 mEq/L Normal [facility] ([place]) Comment on above: Performed By: #### B MP, GFR #### [address] [address] Glucose [Mass/Vol] 99 mg/dL Normal 70-105 [facility] ([place]) Comment on above: Performed By: #### B MP, GFR #### [address] [address] Potassium [Moles/Vol] 5.8 mmol/L High 3.5-5.1 [facility] ([place]) Comment on above: Performed By: #### B MP, GFR #### [place] [id number] Sodium [Moles/Vol] 142 mmol/L Normal 136-145 [facility] ([place]) Comment on above: Performed By: #### B MP, GFR #### [facility] [address] [place] [address] Urea nitrogen [Mass/Vol] 19 mg/dL High 7-18 [facility] ([place]) Comment on above: Performed By: #### B MP, GFR #### [facility] [address] [place] [address] XR Pelvis and Hip - left AP and Lateral frogon 11-20-2020 IMPRESSION: 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 Correlation with patient history and additional evaluation with bone scan may be helpful. 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 TECHNIQUE: Images: XR HIP 3V PELV+ AP/LAT [...] joints are intact. DIVISION OF RADIOLOGY Provider, [facility] Marisela [facility] - 11/20/2020 * * *Final Report* * [...] since having a bladder stimulater placed in [facility]. TECHNIQUE: Images: XR HIP 3V PELV+ AP/LAT [...] evaluation with bone scan may be helpful. 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: [facility] Transcribe Date/Time: Nov 20 2020 5:57P Dictated by : ALTAGRACIA WEIR MD This examination was interpreted and the report reviewed and electronically signed by: ALTAGRACIA WEIR MD on Nov 20 2020 6:01PM [facility] Radiology Study observation (narrative) [facility] XR Pelvis and Hip - left AP and Lateral frogOrdered By: [facility] Provider on 11-20-2020 [facility] BUNon 01-06-2019 Urea nitrogen mass conc 13 mg/dL Normal 7-21 [facility] Comment on above: Performed By: #### B SAYRA, CRET1 #### [facility] Routine Lab [address] [place] [address] Creatinineon 01-06-2019 Creatinine mass conc 1.06 mg/dL High 0.58-0.96 [facility] Comment on above: Performed By: #### B SAYRA, CRET1 #### [facility] Routine Lab [address] [place], [place] [address] Creatinine mass conc mg/dL Normal [facility] Comment on above: Performed By: #### B SAYRA, CRET1 #### [facility] Routine Lab [address] [place], [place] [address] Creatinine mass conc 54 . Normal [facility] Comment on above: Performed By: #### B UN, CRET1 #### [facility] Routine Lab [address] [place], [place] [address] Office Visit: est annualon 1 Fall risk assessment No Invalid Interpretation Code [facility] Tobacco smoking status NHIS Never Invalid Interpretation Code [facility] Tobacco use CPHS Current every day smoker Invalid Interpretation Code [facility] Office Visit: est annualon 0 10-17-2015 Breast Mammogram screening Normal Bilateral Invalid Interpretation Code [facility] Office Visit: est annualon 0 07-18-2014 General categories [Interpretation] of Cervical or vaginal smear or scraping by Cyto stain Normal Invalid Interpretation Code [facility] Vital Signs Date Time Vital Sign Value Performing Clinician Facility 04-30-2025 21:26-0400 Body temperature 97.2 [degF] Broderick Mily Work Phone: [facility] 04-30-2025 21:26-0400 Diastolic blood pressure 61 mm[Hg] Broderick Mily Work Phone: [facility] 04-30-2025 21:26-0400 Heart rate 95 /min Broderick Suazopkins Work Phone: [facility] 04-30-2025 21:26-0400 Respiratory rate 30 /min Broderick Arteagakins Work Phone: [facility] 04-30-2025 21:26-0400 SaO2% (BldA) [Mass fraction] 91 % Broderick Aretagakins Work Phone: [facility] 04-30-2025 21:26-0400 Systolic blood pressure 108 mm[Hg] Broderick Mily Work Phone: [facility] 04-30-2025 19:14-0400 Inhaled oxygen flow rate 2 L/min Broderick Arteagakins Work Phone: [facility] 04-30-2025 17:49-0400 Body height 157.48 cm Broderick Mily Work Phone: [facility] 04-30-2025 17:49-0400 Body mass index (BMI) [Ratio] 44.4 kg/m2 Broderick Minor Work Phone: [facility] 04-30-2025 17:49-0400 Body weight 110.3 kg Broderick Minor Work Phone: [facility] 03-11-2025 11:21-0400 Body height 157.48 cm Broderick Suazopkins Work Phone: [facility] 03-11-2025 11:21-0400 Body mass index (BMI) [Ratio] 44.8 kg/m2 Broderick Suazopkins Work Phone: [facility] 03-11-2025 11:21-0400 Body weight 111.13 kg Broderick Minor Work Phone: [facility] 03-11-2025 11:21-0400 Diastolic blood pressure 76 mm[Hg] Broderick Suazopkins Work Phone: [facility] 03-11-2025 11:21-0400 Heart rate 104 /min Broderick Suazopkins Work Phone: [facility] 03-11-2025 11:21-0400 Systolic blood pressure 107 mm[Hg] Broderick Suazopkins Work Phone: [facility] 02-27-2025 14:51-0400 Body height 157.48 cm Broderick Minor Work Phone: [facility] 02-27-2025 14:51-0400 Body mass index (BMI) [Ratio] 44.8 kg/m2 Broderick Suazopkins Work Phone: [facility] 02-27-2025 14:51-0400 Body weight 111.13 kg Broderick Mily Work Phone: [facility] 02-27-2025 14:51-0400 Diastolic blood pressure 85 mm[Hg] Broderick Suazopkins Work Phone: [facility] 02-27-2025 14:51-0400 Heart rate 85 /min Broderick Suazopkins Work Phone: [facility] 02-27-2025 14:51-0400 Systolic blood pressure 114 mm[Hg] Broderick Suazopkins Work Phone: [facility] 01-31-2025 10:00-0400 Body height 157.48 cm Broderick Suazopkins Work Phone: [facility] 01-31-2025 10:00-0400 Body mass index (BMI) [Ratio] 44.8 kg/m2 Broderick Suazopkins Work Phone: [facility] 01-31-2025 10:00-0400 Body temperature 97.4 [degF] Broderick Mily Work Phone: [facility] 01-31-2025 10:00-0400 Body weight 111.13 kg Broderick [place] Work Phone: [facility] 01-31-2025 10:00-0400 Diastolic blood pressure 76 mm[Hg] Broderick Mily Work Phone: [facility] 01-31-2025 10:00-0400 Heart rate 88 /min Broderick Suazopkins Work Phone: [facility] 01-31-2025 10:00-0400 Respiratory rate 18 /min Broderick Suazopkins Work Phone: [facility] 01-31-2025 10:00-0400 SaO2% (BldA) [Mass fraction] 93 % Broderick [place] Work Phone: [facility] 01-31-2025 10:00-0400 Systolic blood pressure 115 mm[Hg] Broderick Arteagakins Work Phone: [facility] 2025 10:17-0400 Body mass index (BMI) [Ratio] 44.9 kg/m2 Broderick Suazopkins Work Phone: [facility] 2025 10:17-0400 Body temperature 96.6 [degF] Broderick Mily Work Phone: [facility] 2025 10:17-0400 Body weight 111.58 kg Broderick Minor Work Phone: [facility] 2025 10:17-0400 Diastolic blood pressure 65 mm[Hg] Broderick Minor Work Phone: [facility] 2025 10:17-0400 Heart rate 89 /min Broderick Minor Work Phone: [facility] 2025 10:17-0400 Respiratory rate 16 /min Broderick Minor Work Phone: [facility] 2025 10:17-0400 Systolic blood pressure 110 mm[Hg] Broderick Minor Work Phone: [facility] 01-25-2025 10:11-0400 Body mass index (BMI) [Ratio] 44.04 kg/m2 Meagan Yusuf PA-C Work Phone: [facility] 01-25-2025 10:11-0400 Body temperature 98.2 [degF] Meagan Yusuf PA-C Work Phone: [facility] 01-25-2025 10:11-0400 Body weight 112.04 kg Meagan Yusuf PA-C Work Phone: [facility] 01-25-2025 10:11-0400 Diastolic blood pressure 70 mm[Hg] Meagan Yusuf PA-C Work Phone: [facility] 01-25-2025 10:11-0400 Heart rate 85 /min Meagan Yusuf PA-C Work Phone: [facility] 01-25-2025 10:11-0400 Respiratory rate 18 /min Meagan Yusuf PA-C Work Phone: [facility] 01-25-2025 10:11-0400 SaO2% (BldA) [Mass fraction] 93 % Meagan Yusuf PA-C Work Phone: [facility] 01-25-2025 10:11-0400 Systolic blood pressure 110 mm[Hg] Meagan Yusuf PA-C Work Phone: [facility] 01-17-2025 11:18-0400 Body mass index (BMI) [Ratio] 43.86 kg/m2 Meagan Yusuf PA-C Work Phone: [facility] 01-17-2025 11:18-0400 Body temperature 99.5 [degF] Meagan Yusuf PA-C Work Phone: [facility] 01-17-2025 11:18-0400 Body weight 111.58 kg Meagan Yusuf PA-C Work Phone: [facility] 01-17-2025 11:18-0400 Diastolic blood pressure 68 mm[Hg] Meagan Yusuf PA-C Work Phone: [facility] 01-17-2025 11:18-0400 Heart rate 79 /min Meagan Yusuf PA-C Work Phone: [facility] 01-17-2025 11:18-0400 Respiratory rate 18 /min Meagan Yusuf PA-C Work Phone: [facility] 01-17-2025 11:18-0400 SaO2% (BldA) [Mass fraction] 93 % Meagan Yusuf PA-C Work Phone: [facility] 01-17-2025 11:18-0400 Systolic blood pressure 120 mm[Hg] Meagan Yusuf PA-C Work Phone: [facility] 01-11-2025 11:56-0400 Body temperature 97.4 [degF] Broderick Minor Work Phone: [facility] 01-11-2025 11:56-0400 Diastolic blood pressure 66 mm[Hg] Broderick Minor Work Phone: [facility] 01-11-2025 11:56-0400 Heart rate 73 /min Broderick Minor Work Phone: [facility] 01-11-2025 11:56-0400 Respiratory rate 16 /min Broderick Minor Work Phone: [facility] 01-11-2025 11:56-0400 SaO2% (BldA) [Mass fraction] 95 % Broderick Suazopkins Work Phone: [facility] 01-11-2025 11:56-0400 Systolic blood pressure 113 mm[Hg] Broderick Mily Work Phone: [facility] 01-11-2025 05:48-0400 Body mass index (BMI) [Ratio] 46.7 kg/m2 Broderick Suazopkins Work Phone: [facility] 01-11-2025 05:48-0400 Body weight 115.1 kg Broderick Suazopkins Work Phone: [facility] 01-09-2025 17:00-0400 Inhaled oxygen flow rate 2 L/min Broderick [place] Work Phone: [facility] 01-09-2025 11:12-0400 Body height 157.48 cm Broderick Arteagakins Work Phone: [facility] 01-08-2025 20:00-0400 Body temperature 98.2 [degF] Broderick [place] Work Phone: [facility] 01-08-2025 20:00-0400 Diastolic blood pressure 72 mm[Hg] Broderick Arteagakins Work Phone: [facility] 01-08-2025 20:00-0400 Heart rate 87 /min Broderick Arteagakins Work Phone: [facility] 01-08-2025 20:00-0400 Inhaled oxygen flow rate 2 L/min Broderick Mily Work Phone: [facility] 01-08-2025 20:00-0400 Respiratory rate 18 /min Broderick Suazopkins Work Phone: [facility] 01-08-2025 20:00-0400 SaO2% (BldA) [Mass fraction] 100 % Broderick Minor Work Phone: [facility] 01-08-2025 20:00-0400 Systolic blood pressure 114 mm[Hg] Broderick Suazopkins Work Phone: [facility] 01-08-2025 16:29-0400 Body height 157.48 cm Broderick Suazopkins Work Phone: [facility] 01-08-2025 16:29-0400 Body mass index (BMI) [Ratio] 46.7 kg/m2 Broderick Suazopkins Work Phone: [facility] 01-08-2025 16:29-0400 Body weight 116 kg Broderick Suazopkins Work Phone: [facility] 12-18-2024 11:52-0400 Body mass index (BMI) [Ratio] 45.11 kg/m2 Homer Bradford MD Work Phone: [facility] 12-18-2024 11:52-0400 Body weight 114.76 kg Homer Bradford MD Work Phone: [facility] 12-18-2024 11:52-0400 Diastolic blood pressure 70 mm[Hg] Homer Bradford MD Work Phone: [facility] 12-18-2024 11:52-0400 Heart rate 87 /min Homer Bradford MD Work Phone: [facility] 12-18-2024 11:52-0400 Respiratory rate 18 /min Homer Bradford MD Work Phone: [facility] 12-18-2024 11:52-0400 SaO2% (BldA) [Mass fraction] 94 % Homer Bradford MD Work Phone: [facility] 12-18-2024 11:52-0400 Systolic blood pressure 104 mm[Hg] Homer Bradford MD Work Phone: [facility] 11-14-2024 13:09-0400 Body temperature 98.7 [degF] Broderick Minor Work Phone: [facility] 11-14-2024 13:09-0400 Diastolic blood pressure 64 mm[Hg] Broderick Minor Work Phone: [facility] 11-14-2024 13:09-0400 Heart rate 87 /min Broderick Minor Work Phone: [facility] 11-14-2024 13:09-0400 Respiratory rate 16 /min Broderick Minor Work Phone: [facility] 11-14-2024 13:09-0400 SaO2% (BldA) [Mass fraction] 97 % Broderick Minor Work Phone: [facility] 11-14-2024 13:09-0400 Systolic blood pressure 105 mm[Hg] Broderick Minor Work Phone: [facility] 11-14-2024 06:51-0400 Body mass index (BMI) [Ratio] 49.8 kg/m2 Broderick Minor Work Phone: [facility] 11-14-2024 06:51-0400 Body weight 123.7 kg Broderick Suazopkins Work Phone: [facility] 11-12-2024 03:53-0400 Diastolic blood pressure 68 mm[Hg] Broderick Minor Work Phone: [facility] 11-12-2024 03:53-0400 Heart rate 90 /min Broderick Minor Work Phone: [facility] 11-12-2024 03:53-0400 Respiratory rate 18 /min Broderick Minor Work Phone: [facility] 11-12-2024 03:53-0400 SaO2% (BldA) [Mass fraction] 94 % Broderick Minor Work Phone: [facility] 11-12-2024 03:53-0400 Systolic blood pressure 96 mm[Hg] Broderick Mily Work Phone: [facility] 11-12-2024 03:51-0400 Body temperature 97.7 [degF] Broderick Mily Work Phone: [facility] 11-12-2024 02:26-0400 Body mass index (BMI) [Ratio] 47.8 kg/m2 Broderick Suazopkins Work Phone: [facility] 11-12-2024 02:26-0400 Body weight 118.6 kg Broderick Suazopkins Work Phone: [facility] 11-07-2024 11:15-0400 Body temperature 98.2 [degF] Broderick [place] Work Phone: [facility] 11-07-2024 11:15-0400 Diastolic blood pressure 47 mm[Hg] Broderick [place] Work Phone: [facility] 11-07-2024 11:15-0400 Heart rate 80 /min Broderick Suazopkins Work Phone: [facility] 11-07-2024 11:15-0400 Respiratory rate 16 /min Broderick Mily Work Phone: [facility] 11-07-2024 11:15-0400 SaO2% (BldA) [Mass fraction] 94 % Broderick [place] Work Phone: [facility] 11-07-2024 11:15-0400 Systolic blood pressure 111 mm[Hg] Broderick Mily Work Phone: [facility] 11-07-2024 06:00-0400 Body mass index (BMI) [Ratio] 48.4 kg/m2 Broderick [place] Work Phone: [facility] 11-07-2024 06:00-0400 Body weight 119.3 kg Broderick [place] Work Phone: [facility] 11-04-2024 14:55-0400 Body temperature 97.8 [degF] Broderick [place] Work Phone: [facility] 11-04-2024 14:55-0400 Diastolic blood pressure 70 mm[Hg] Broderick Arteagakins Work Phone: [facility] 11-04-2024 14:55-0400 Heart rate 93 /min Broderick Minor Work Phone: [facility] 11-04-2024 14:55-0400 Respiratory rate 16 /min Broderick Minor Work Phone: [facility] 11-04-2024 14:55-0400 SaO2% (BldA) [Mass fraction] 96 % Broderick Minor Work Phone: [facility] 11-04-2024 14:55-0400 Systolic blood pressure 109 mm[Hg] Broderick Minor Work Phone: [facility] 11-04-2024 12:30-0400 Body height 157.48 cm Broderick Minor Work Phone: [facility] 11-04-2024 12:30-0400 Body mass index (BMI) [Ratio] 47.1 kg/m2 Broderick Minor Work Phone: [facility] 11-04-2024 12:30-0400 Body weight 116.9 kg Broderick Minor Work Phone: [facility] 09-21-2024 15:16-0500 Body mass index (BMI) [Ratio] 45.4 kg/m2 Broderick Minor Work Phone: [facility] 09-21-2024 15:12-0500 Body temperature 98 [degF] Broderick Minor Work Phone: [facility] 09-21-2024 15:12-0500 Diastolic blood pressure 56 mm[Hg] Broderick Minor Work Phone: [facility] 09-21-2024 15:12-0500 Heart rate 84 /min Broderick Minor Work Phone: [facility] 09-21-2024 15:12-0500 Respiratory rate 17 /min Broderick Suazopkins Work Phone: [facility] 09-21-2024 15:12-0500 SaO2% (BldA) [Mass fraction] 92 % Broderick Minor Work Phone: [facility] 09-21-2024 15:12-0500 Systolic blood pressure 125 mm[Hg] Broderick [place] Work Phone: [facility] 09-18-2024 15:49-0500 Body height 161.29 cm Broderick Minor Work Phone: [facility] 09-18-2024 15:49-0500 Body weight 118.3 kg Broderick Minor Work Phone: [facility] 09-18-2024 15:42-0500 Inhaled oxygen flow rate 2 L/min Broderick Minor Work Phone: [facility] 03-22-2024 12:58-0400 Body height 159.5 cm Meagan Yusuf PA-C Work Phone: [facility] 03-22-2024 12:58-0400 Body mass index (BMI) [Ratio] 47.78 kg/m2 Meagan Yusuf PA-C Work Phone: [facility] 03-22-2024 12:58-0400 Body temperature 97.5 [degF] Meagan Yusuf PA-C Work Phone: [facility] 03-22-2024 12:58-0400 Body weight 121.56 kg Meagan Yusuf PA-C Work Phone: [facility] 03-22-2024 12:58-0400 Diastolic blood pressure 72 mm[Hg] Meagan Yusuf PA-C Work Phone: [facility] 03-22-2024 12:58-0400 Heart rate 90 /min Meagan Yusuf PA-C Work Phone: [facility] 03-22-2024 12:58-0400 Respiratory rate 20 /min Meagan Yusuf PA-C Work Phone: [facility] 03-22-2024 12:58-0400 SaO2% (BldA) [Mass fraction] 93 % Meagan Yusuf PA-C Work Phone: [facility] 03-22-2024 12:58-0400 Systolic blood pressure 122 mm[Hg] Meagan Yusuf PA-C Work Phone: [facility] 11-24-2023 11:52-0400 Body temperature 98 [degF] [facility] 11-24-2023 11:52-0400 Diastolic blood pressure 53 mm[Hg] [facility] 11-24-2023 11:52-0400 Heart rate 80 /min [facility] 11-24-2023 11:52-0400 Respiratory rate 16 /min [facility] 11-24-2023 11:52-0400 SaO2% (BldA) [Mass fraction] 93 % [facility] 11-24-2023 11:52-0400 Systolic blood pressure 101 mm[Hg] [facility] 11-24-2023 09:25-0400 Body height 161.29 cm [facility] 11-24-2023 09:25-0400 Body mass index (BMI) [Ratio] 46.5 kg/m2 [facility] 11-24-2023 09:25-0400 Body weight 121 kg [facility] 11-14-2023 14:03-0400 Body mass index (BMI) [Ratio] 46.73 kg/m2 Homer Bradford MD Work Phone: [facility] 11-14-2023 14:03-0400 Body weight 121.56 kg Homer Bradford MD Work Phone: [facility] 11-14-2023 14:03-0400 Diastolic blood pressure 64 mm[Hg] Homer Bradford MD Work Phone: [facility] 11-14-2023 14:03-0400 Heart rate 70 /min Homer Bradford MD Work Phone: [facility] 11-14-2023 14:03-0400 Respiratory rate 16 /min Homer Bradford MD Work Phone: [facility] 11-14-2023 14:03-0400 Systolic blood pressure 104 mm[Hg] Homer Bradford MD Work Phone: [facility] 09-27-2023 13:16-0400 Body height 161.3 cm Meagan Yusuf PA-C Work Phone: [facility] 09-27-2023 13:16-0400 Body temperature 98.6 [degF] Meagan Yusuf PA-C Work Phone: [facility] 09-27-2023 13:16-0400 Body weight 120.66 kg Meagansterling Yusuf PA-C Work Phone: [facility] 09-27-2023 13:16-0400 Diastolic blood pressure 70 mm[Hg] Meagan Yusuf PA-C Work Phone: [facility] 09-27-2023 13:16-0400 Heart rate 95 /min Meagan Yusuf PA-C Work Phone: [facility] 09-27-2023 13:16-0400 Respiratory rate 18 /min Meagan Yusuf PA-C Work Phone: [facility] 09-27-2023 13:16-0400 Systolic blood pressure 102 mm[Hg] Meagan Yusuf PA-C Work Phone: [facility] 03-28-2023 13:07-0400 Diastolic blood pressure 57 mm[Hg] Dr. Homer Bradford Work Phone: [facility] 03-28-2023 13:07-0400 Heart rate 86 /min Dr. Homer Bradford Work Phone: [facility] 03-28-2023 13:07-0400 Respiratory rate 15 /min Dr. Homer Bradford Work Phone: [facility] 03-28-2023 13:07-0400 SaO2% (BldA) [Mass fraction] 98 % Dr. Homer Bradford Work Phone: [facility] 03-28-2023 13:07-0400 Systolic blood pressure 112 mm[Hg] Dr. Homer Bradford Work Phone: [facility] 03-28-2023 10:30-0400 Inhaled oxygen flow rate 2 L/min Dr. Homer Bradford Work Phone: [facility] 03-28-2023 10:10-0400 Body height 161.[address] Homer Bradford Work Phone: [facility] 03-28-2023 10:10-0400 Body mass index (BMI) [Ratio] 47 kg/m2 Dr. Homer Bradford Work Phone: [facility] 03-28-2023 10:10-0400 Body temperature 98.1 [degF] Dr. Homer Bradford Work Phone: [facility] 03-28-2023 10:10-0400 Body weight 122.[address] Homer Bradford Work Phone: [facility] 03-11-2023 13:45-0400 Body height 161.3 cm Caterina Thompson PA-C Work Phone: [facility] 03-11-2023 13:45-0400 Body temperature 97 [degF] Caterina Thompson PA-C Work Phone: [facility] 03-11-2023 13:45-0400 Body weight 122.47 kg Caterina Thompson PA-C Work Phone: [facility] 03-11-2023 13:45-0400 Diastolic blood pressure 72 mm[Hg] Caterina Thompson PA-C Work Phone: [facility] 03-11-2023 13:45-0400 Heart rate 84 /min Caterina Anjelica PA-C Work Phone: [facility] 03-11-2023 13:45-0400 Respiratory rate 22 /min Caterina Thompson PA-C Work Phone: [facility] 03-11-2023 13:45-0400 SaO2% (BldA) [Mass fraction] 95 % Caterina Anjelica PA-C Work Phone: [facility] 03-11-2023 13:45-0400 Systolic blood pressure 112 mm[Hg] Caterina Anjelica PA-C Work Phone: [facility] 03-04-2023 09:06-0400 Body height 160.[address] Homer Bradford Work Phone: [facility] 03-04-2023 09:06-0400 Body mass index (BMI) [Ratio] 47.5 kg/m2 Dr. Homer Bradford Work Phone: [facility] 03-04-2023 09:06-0400 Body temperature 97.2 [degF] Dr. Homer Bradford Work Phone: [facility] 03-04-2023 09:06-0400 Body weight 121.[address] Homer Bradford Work Phone: [facility] 03-04-2023 09:06-0400 Diastolic blood pressure 69 mm[Hg] Dr. Homer Bradford Work Phone: [facility] 03-04-2023 09:06-0400 Heart rate 92 /min Dr. Homer Bradford Work Phone: [facility] 03-04-2023 09:06-0400 Respiratory rate 22 /min Dr. Homer Bradford Work Phone: [facility] 03-04-2023 09:06-0400 SaO2% (BldA) [Mass fraction] 97 % Dr. Homer Bradford Work Phone: [facility] 03-04-2023 09:06-0400 Systolic blood pressure 103 mm[Hg] Dr. Homer Bradford Work Phone: [facility] 02-28-2023 13:58-0400 Body temperature 98.1 [degF] Meagan MAY-C Work Phone: [facility] 02-28-2023 13:58-0400 Body weight 122.47 kg Meagan MAY-C Work Phone: [facility] 02-28-2023 13:58-0400 Diastolic blood pressure 66 mm[Hg] Meagan MAY-C Work Phone: [facility] 02-28-2023 13:58-0400 Heart rate 90 /min Meagan MAY-C Work Phone: [facility] 02-28-2023 13:58-0400 Respiratory rate 20 /min Meagan Yusuf PA-C Work Phone: [facility] 02-28-2023 13:58-0400 SaO2% (BldA) [Mass fraction] 92 % Meagan Yusuf PA-C Work Phone: [facility] 02-28-2023 13:58-0400 Systolic blood pressure 100 mm[Hg] Meagan Yusuf PA-C Work Phone: [facility] 12-01-2022 15:41-0400 Heart rate 112 /min [facility] 12-01-2022 15:41-0400 Respiratory rate 18 /min [facility] 12-01-2022 15:41-0400 SaO2% (BldA) [Mass fraction] 96 % [facility] 12-01-2022 14:27-0400 Body height 160.02 cm [facility] 12-01-2022 14:27-0400 Body mass index (BMI) [Ratio] 49.6 kg/m2 [facility] 12-01-2022 14:27-0400 Body temperature 98.2 [degF] [facility] 12-01-2022 14:27-0400 Body weight 127 kg [facility] 12-01-2022 14:27-0400 Diastolic blood pressure 84 mm[Hg] [facility] 12-01-2022 14:27-0400 Systolic blood pressure 129 mm[Hg] [facility] 10-21-2022 12:24-0400 Body temperature 98.4 [degF] Meagan Yusuf PA-C Work Phone: [facility] 10-21-2022 12:24-0400 Diastolic blood pressure 76 mm[Hg] Meagan Yusuf PA-C Work Phone: [facility] 10-21-2022 12:24-0400 Heart rate 96 /min Meagan Yusuf PA-C Work Phone: [facility] 10-21-2022 12:24-0400 Respiratory rate 20 /min Meagan Yusuf PA-C Work Phone: [facility] 10-21-2022 12:24-0400 Systolic blood pressure 124 mm[Hg] Meagan Yusuf PA-C Work Phone: [facility] 10-04-2022 18:18-0400 Body weight 123.38 kg Azam Fam MD Work Phone: [facility] 10-04-2022 18:18-0400 Diastolic blood pressure 78 mm[Hg] Azam Fam MD Work Phone: [facility] 10-04-2022 18:18-0400 Heart rate 90 /min Azam Fam MD Work Phone: [facility] 10-04-2022 18:18-0400 Respiratory rate 20 /min Azam Fam MD Work Phone: [facility] 10-04-2022 18:18-0400 Systolic blood pressure 124 mm[Hg] Azam Fam MD Work Phone: [facility] 09-12-2022 11:07-0500 Diastolic blood pressure 60 mm[Hg] [facility] 09-12-2022 11:07-0500 Heart rate 98 /min [facility] 09-12-2022 11:07-0500 SaO2% (BldA) [Mass fraction] 99 % [facility] 09-12-2022 11:07-0500 Systolic blood pressure 126 mm[Hg] [facility] 09-12-2022 10:53-0500 Body height 157.48 cm [facility] 09-12-2022 10:53-0500 Body mass index (BMI) [Ratio] 50.3 kg/m2 [facility] 09-12-2022 10:53-0500 Body temperature 98 [degF] [facility] 09-12-2022 10:53-0500 Body weight 124.73 kg [facility] 09-12-2022 10:53-0500 Respiratory rate 24 /min [facility] 07-15-2022 13:48-0500 Body weight 119.3 kg Meagan Yusuf PA-C Work Phone: [facility] 07-15-2022 13:48-0500 Diastolic blood pressure 60 mm[Hg] Meagan Yusuf PA-C Work Phone: [facility] 07-15-2022 13:48-0500 Heart rate 76 /min Meagan Yusuf PA-C Work Phone: [facility] 07-15-2022 13:48-0500 Respiratory rate 18 /min Meagan Yusuf PA-C Work Phone: [facility] 07-15-2022 13:48-0500 Systolic blood pressure 102 mm[Hg] Meagan Yusuf PA-C Work Phone: [facility] 06-09-2022 15:03-0500 Body height 162.6 cm Homer Bradford MD Work Phone: [facility] 06-09-2022 15:03-0500 Body weight 119.3 kg Homer Bradford MD Work Phone: [facility] 06-09-2022 15:03-0500 Diastolic blood pressure 60 mm[Hg] Homer Bradford MD Work Phone: [facility] 06-09-2022 15:03-0500 Heart rate 72 /min Homer Bradford MD Work Phone: [facility] 06-09-2022 15:03-0500 Respiratory rate 18 /min Homer Bradford MD Work Phone: [facility] 06-09-2022 15:03-0500 Systolic blood pressure 104 mm[Hg] Homer Bradford MD Work Phone: [facility] 02-25-2022 09:48-0400 Body height 160.[address] Homer Bradford Work Phone: [facility] Work Phone: 02-25-2022 09:48-0400 Body mass index (BMI) [Ratio] 43.5 kg/m2 Dr. Homer Bradford Work Phone: [facility] Work Phone: 02-25-2022 09:48-0400 Body temperature 97.2 [degF] Dr. Homer Bradford Work Phone: [facility] Work Phone: 02-25-2022 09:48-0400 Body weight 111.[address] Homer Bradford Work Phone: [facility] Work Phone: 02-25-2022 09:48-0400 Diastolic blood pressure 56 mm[Hg] Dr. Homer Bradford Work Phone: [facility] Work Phone: 02-25-2022 09:48-0400 Heart rate 79 /min Dr. Homer Bradford Work Phone: [facility] Work Phone: 02-25-2022 09:48-0400 Respiratory rate 19 /min Dr. Homer Bradford Work Phone: [facility] Work Phone: 02-25-2022 09:48-0400 SaO2% (BldA) [Mass fraction] 96 % Dr. Homer Bradford Work Phone: [facility] Work Phone: 02-25-2022 09:48-0400 Systolic blood pressure 92 mm[Hg] Dr. Homer Bradford Work Phone: [facility] Work Phone: 02-23-2022 14:24-0400 Body weight 102.[address] Homer Bradford Work Phone: [facility] Work Phone: 02-23-2022 14:24-0400 Heart rate 77 /min Dr. Homer Bradford Work Phone: [facility] Work Phone: 02-23-2022 14:24-0400 SaO2% (BldA) [Mass fraction] 95 % Dr. Homer Bradford Work Phone: [facility] Work Phone: 01-05-2022 06:21-0400 Body height 160.[address] Homer Bradford Work Phone: [facility] Work Phone: 01-05-2022 06:21-0400 Body mass index (BMI) [Ratio] 41.1 kg/m2 Dr. Homer Bradford Work Phone: [facility] Work Phone: 01-05-2022 06:21-0400 Body temperature 98.2 [degF] Dr. Homer Bradford Work Phone: [facility] Work Phone: 01-05-2022 06:21-0400 Body weight 105.[address] Homer Bradford Work Phone: [facility] Work Phone: 01-05-2022 06:21-0400 Diastolic blood pressure 56 mm[Hg] Dr. Homer Bradford Work Phone: [facility] Work Phone: 01-05-2022 06:21-0400 Heart rate 75 /min Dr. Homer Bradford Work Phone: [facility] Work Phone: 01-05-2022 06:21-0400 Respiratory rate 18 /min Dr. Homer Bradford Work Phone: [facility] Work Phone: 01-05-2022 06:21-0400 SaO2% (BldA) [Mass fraction] 92 % Dr. Homer Bradford Work Phone: [facility] Work Phone: 01-05-2022 06:21-0400 Systolic blood pressure 107 mm[Hg] Dr. Homer Bradford Work Phone: [facility] Work Phone: 12-21-2021 15:57-0400 Body height 167.7 cm ROMEO SIERRA MD [facility] 12-21-2021 15:57-0400 Body temperature 98.6 [degF] ROMEO SIERRA MD [facility] 12-21-2021 15:57-0400 Body weight 104.5 kg ROMEO SIERRA MD [facility] 12-21-2021 15:57-0400 Diastolic blood pressure 66 mm[Hg] ROMEO SIERRA MD [facility] 12-21-2021 15:57-0400 Heart rate 116 /min ROMEO SIERRA MD [facility] 12-21-2021 15:57-0400 Respiratory rate 24 /min ROMEO SIERRA MD [facility] 12-21-2021 15:57-0400 Systolic blood pressure 137 mm[Hg] ROMEO SIERRA MD [facility] 11-27-2021 14:13-0400 Body temperature 98.2 [degF] Homer Bradford MD Work Phone: [facility] 11-27-2021 14:13-0400 Body weight 106.05 kg Homer Bradford MD Work Phone: [facility] 11-27-2021 14:13-0400 Diastolic blood pressure 64 mm[Hg] Homer Bradford MD Work Phone: [facility] 11-27-2021 14:13-0400 Heart rate 68 /min Homer Bradford MD Work Phone: [facility] 11-27-2021 14:13-0400 Respiratory rate 20 /min Homer Bradford MD Work Phone: [facility] 11-27-2021 14:13-0400 Systolic blood pressure 96 mm[Hg] Homer Bradford MD Work Phone: [facility] 10-14-2021 16:24-0400 Body temperature 97.2 [degF] Dick Dodd MD Work Phone: [facility] 10-14-2021 16:24-0400 Body weight 108.68 kg Dick Dodd MD Work Phone: [facility] 10-14-2021 16:24-0400 Diastolic blood pressure 62 mm[Hg] Dick Dodd MD Work Phone: [facility] 10-14-2021 16:24-0400 Heart rate 76 /min Dick Dodd MD Work Phone: [facility] 10-14-2021 16:24-0400 Respiratory rate 18 /min Dick Dodd MD Work Phone: [facility] 10-14-2021 16:24-0400 SaO2% (BldA) [Mass fraction] 95 % Dick Dodd MD Work Phone: [facility] 10-14-2021 16:24-0400 Systolic blood pressure 112 mm[Hg] Dick oDdd MD Work Phone: [facility] 09-28-2021 10:03-0400 Body height 160.[address] Homer Bradford Work Phone: [facility] Work Phone: 09-28-2021 10:03-0400 Body mass index (BMI) [Ratio] 42.5 kg/m2 Dr. Homer Bradford Work Phone: [facility] Work Phone: 09-28-2021 10:03-0400 Body temperature 98.6 [degF] Dr. Homer Bradford Work Phone: [facility] Work Phone: 09-28-2021 10:03-0400 Body weight 108.[address] Homer Bradford Work Phone: [facility] Work Phone: 09-28-2021 10:03-0400 Diastolic blood pressure 76 mm[Hg] Dr. Homer Bradford Work Phone: [facility] Work Phone: 09-28-2021 10:03-0400 Heart rate 82 /min Dr. Homer Bradford Work Phone: [facility] Work Phone: 09-28-2021 10:03-0400 Respiratory rate 19 /min Dr. Homer Bradford Work Phone: [facility] Work Phone: 09-28-2021 10:03-0400 SaO2% (BldA) [Mass fraction] 94 % Dr. Homer Bradford Work Phone: [facility] Work Phone: 09-28-2021 10:03-0400 Systolic blood pressure 117 mm[Hg] Dr. Homer Bradford Work Phone: [facility] Work Phone: 09-07-2021 10:31-0500 Body temperature 97.8 [degF] Dr. Homer Bradford Work Phone: [facility] Work Phone: 09-07-2021 10:31-0500 Diastolic blood pressure 67 mm[Hg] Dr. Homer Bradford Work Phone: [facility] Work Phone: 09-07-2021 10:31-0500 Heart rate 69 /min Dr. Homer Bradford Work Phone: [facility] Work Phone: 09-07-2021 10:31-0500 Respiratory rate 17 /min Dr. Homer Bradford Work Phone: [facility] Work Phone: 09-07-2021 10:31-0500 SaO2% (BldA) [Mass fraction] 94 % Dr. Homer Bradford Work Phone: [facility] Work Phone: 09-07-2021 10:31-0500 Systolic blood pressure 89 mm[Hg] Dr. Homer Bradford Work Phone: [facility] Work Phone: 09-07-2021 04:04-0500 Body weight 109.[address] Homer Bradford Work Phone: [facility] Work Phone: 08-29-2021 09:33-0500 Inhaled oxygen concentration 45 % Dr. Homer Bradford Work Phone: [facility] Work Phone: 08-25-2021 19:16-0500 Body mass index (BMI) [Ratio] 43.7 kg/m2 Dr. Homer Bradford Work Phone: [facility] Work Phone: 04-26-2017 14:20-0400 BMI (Body Mass Index) 42.62 kg/m2 Dorothy Fletcher MD [facility] 04-26-2017 14:20-0400 Body Temperature 97.4 [degF] Dorothy Fletcher MD [facility] 04-26-2017 14:20-0400 Body Temperature 97.39 [degF] Dorothy Fletcher MD [facility] 04-26-2017 14:20-0400 BP Diastolic 81 mm[Hg] Dorothy Fletcher MD [facility] 04-26-2017 14:20-0400 BP Systolic 123 mm[Hg] Dorothy Fletcher MD [facility] 04-26-2017 14:20-0400 Height 160.02 cm Dorothy Fletcher MD [facility] 04-26-2017 14:20-0400 Pulse (Heart Rate) 58 /min Dorothy Fletcher MD [facility] 04-26-2017 14:20-0400 Respiratory Rate 16 /min Dorothy Fletcher MD [facility] 04-26-2017 14:20-0400 Weight 109.14 kg Dorothy Fletcher MD [facility] 04-26-2017 14:0400 Weight 109.13 kg Dorothy Fletcher MD [facility] Encounters Encounter Date Encounter Type Care Provider Facility Start: 05-24-2025 End: 05-28-2025 Evaluation and management of inpatient Carol Pruitt Facility:[facility] Start: 05-24-2025 ambulatory Shani Pelaez [facility] Start: 05-24-2025 End: 05-24-2025 ambulatory HOMER BRADFORD Facility:[facility] Start: 05-06-2025 ambulatory Homer Bradford Facility :[facility] Start: 04-30-2025 End: 04-30-2025 Emergency department patient visit Dr. Ortiz Pinto MD -Emergency Department Work Phone: Start: 04-27-2025 ambulatory Homer Sanchez Facility :[facility] Start: 04-04-2025 End: 04-04-2025 ambulatory ORTIZ MASSEY Facility:[facility] Start: 03-27-2025 End: 03-28-2025 Telephone encounter Homer Bradford MD Work Phone: [facility] Comment on above: Letter Start: [...] 03-21-2025 End: 03-21-2025 ambulatory ALIZE Michel JERI Facility:[facility] Start: 03-19-2025 End: 03-19-2025 Telephone encounter Zoila Sage MSW Navigation Start: 03-19-2025 End: 04-16-[address] Vijay Love MD -[facility] Work Phone: Start: 03-19-2025 End: 04-16-2025 ambulatory Broderick Suazopkins Work Phone: -[facility] Start: 03-14-2025 End: 03-14-2025 Orders Only Ortiz Massey MD Work Phone: Orthopaedics Comment on above: Left shoulder pain, unspecified chronicity (Primary Dx) Start: 03-11-2025 End: 03-11-[address] Jennifer Alba MD -[facility] Work Phone: Start: 03-11-2025 End: 03-11-2025 Dr. Jennifer Alba MD -[facility] Work Phone: Start: 03-11-2025 End: 03-11-2025 ambulatory Broderick Suazopkins Work Phone: -[facility] Start: 03-05-2025 End: 03-15-2025 Telephone encounter Zoila Sage MSW Navigation Start: 03-04-2025 End: 03-05-2025 Telephone encounter Zoila Sage [employer] Navigation Start: 03-01-2025 End: 03-02-2025 Refill Homer Bradford MD Work Phone: [facility] Comment on above: Refill Request Start: 02-27-2025 End: 02-27-[address] Jennifer Alba MD -[facility] Work Phone: Start: 02-27-2025 End: 02-27-2025 Dr. Jennifer Alba MD -[facility] Work Phone: Start: 02-27-2025 End: 02-27-2025 ambulatory Broderick Suazopkins Work Phone: -[facility] Start: 02-21-2025 Encounter for genera l adult medical examination without abnormal findings HOMER BRADFORD [facility] Start: 02-21-2025 Patient encounter status Jatinder Bradford MD Work Phone: [facility] Start: 02-21-2025 End: 02-21-2025 ambulatory HOMER BRADFORD Facility:[facility] Start: 02-19-2025 End: 03-17-[address] Vijay Love MD -[facility] Work Phone: Start: 02-19-2025 Dr. Vijay Love MD -[facility] Work Phone: Start: 02-19-2025 End: 03-17-2025 ambulatory Broderick Suazopkins Work Phone: -[facility] Start: 01-31-2025 End: 01-31-2025 Patient encounter procedure Taylor RASHID -[facility] Work Phone: Start: 01-31-2025 End: 01-31-2025 ambulatory Broderick Suazopkins Work Phone: -[facility] Start: 01-31-2025 End: 01-31-2025 Taylor RASHID -[facility] Work Phone: Start: 2025 Non-patient / Non-visit Dr[facility] Vijay Love [facility] Start: 2025 Dr. Vijay Love MD -[facility] Start: 2025 End: 02-14-[address] Vijay Love MD -[facility] Work Phone: Start: 2025 End: 02-14-2025 Dr. Vijay Love MD -[facility] Work Phone: Start: 2025 End: 02-14-2025 Refill Homer Bradford MD Work Phone: [facility] Comment on above: Refill Request Start: 01-28-2025 End: 2025 Follow-up encounter Meagan MAY-C Work Phone: [facility] Start: 01-25-2025 End: 01-25-2025 Office outpatient visit 15 minutes Meagan Yusuf PA-C Work Phone: [facility] Comment on above: Urinary frequency (P rimary Dx); Dysuria; Pressure injury of sacral region, stage 2 (HCC) Start: 01-25-2025 End: 01-25-2025 [facility] MEAGAN YUSUF Facility:[facility] Start: 01-21-2025 End: 01-25-2025 Follow-up encounter Meagan MAY-C Work Phone: [facility] Comment on above: Results Refill Request Start: 01-17-2025 End: 01-17-2025 ambulatory MEAGAN YSUUF Facility:[facility] Start: 01-17-2025 End: 01-17-2025 Office outpatient visit 25 minutes Meagan MAY-C Work Phone: [facility] Comment on above: Sepsis, due to unspe [...] Start: 01-17-2025 End: 01-17-2025 ambulatory MEAGAN YUSUF Facility:[facility] Start: 01-15-2025 Non-patient / Non-visit Dr. Jennifer bermudez MD -[facility] Work Phone: Start: 01-15-2025 Dr. Jennifer Alba MD -[facility] Work Phone: Start: 01-11-2025 End: 01-11-2025 Telephone encounter Homer Bradford MD Work Phone: [facility] Comment on above: Forms (CMN) Start: 01-11-2025 Non-patient / Non-visit Dr. Peter Herbert MD -[facility] Work Phone: Start: 01-11-2025 Dr. Peter Herbert MD -[facility] Work Phone: Start: 01-10-2025 ambulatory Peter Keon Facility: [facility] Start: 01-10-2025 Non-patient / Non-visit Dr. Wilfredo vallejo MD -[facility] Start: 01-10-2025 Dr. Wilfredo Shelby MD -[facility] Start: 01-10-2025 Non-patient / Non-visit Dr. Dallin camargo DO [facility] Start: 01-10-2025 Dr. Dallin Christopher [facility] Start: 01-09-2025 End: 01-09-2025 Chart abstracting Homer Bradford MD Work Phone: [facility] Comment on above: Received Outside Med ical Records ([facility] Admission records) Start: 01-09-2025 Non-patient / Non-visit Dr. Guevara [facility] Work Phone: Start: 01-09-2025 Dr. Luis Antonio Navarro [facility] Work Phone: Start: 01-08-2025 ambulatory Lauren Vela Facility :[facility] Start: 01-08-2025 End: 01-11-2025 Evaluation and management of inpatient Broderick Minor Work Phone: [facility] Work Phone: Start: 01-08-2025 End: 01-11-2025 Dr. Lauren Vela MD -Intensive Care Un it Work Phone: Start: 01-07-2025 End: 01-07-2025 Refill Homer Bradford MD Work Phone: [facility] Comment on above: Refill Request Start: 12-26-2024 End: 12-26-2024 ambulatory Homer Bradfrod MD Work Phone: [facility] Comment on above: A Message from Dr. Lianne murguia Start: 12-26-2024 End: 12-26-2024 E-mail encounter from caregiver Homer Bradford MD Work Phone: [facility] Start: 12-25-2024 End: 01-04-2025 Telephone encounter Homer Bradford MD Work Phone: [facility] Comment on above: Results Start: 12-18-2024 End: 12-18-2024 [facility] HOMER BRADFORD Facility:[facility] Start: 12-18-2024 End: 12-18-2024 Ophthalmic examination and evaluation Homer Bradford MD Work Phone: [facility] Start: 12-18-2024 End: 12-18-2024 Patient encounter procedure Homer Bradford MD Work Phone: [facility] Comment on above: Type 2 diabetes elroy itus with stage 3b chronic kidney disease, without long-term current use of insulin ([facility]) (Primary Dx); Diabetic eye exam ([facility]); Mixed hyperlipidemia; History of CVA (cerebrovascular accident); Chronic obstructive pulmonary disease, unspecified COPD type ([facility]); Nodule of left lung; Chronic insomnia; Migraine without aura and without status migrainosus, not intractable; Tardive dyskinesia; Hypotension, unspecified hypotension type; Gastroesophageal reflux disease without esophagitis; ASHD (arteriosclerotic heart disease); Paroxysmal atrial fibrillation ([facility]); Stage 3b chronic kidney disease ([facility]); Bilateral leg edema; Bipolar affective disorder, remission status unspecified ([facility]); Major depressive disorder, recurrent episode, moderate ([facility]); Low vitamin B12 level; Obesity, Class III, BMI >= 40; Smoker; Mixed incontinence urge and stress (male)(female); Medication management Start: 12-18-2024 End: 12-18-2024 ambulatory HOMER BRADFORD Facility:[facility] Start: 12-07-2024 End: 12-11-2024 Telephone encounter Homer Bradford MD Work Phone: [facility] Comment on above: Orders (for incontin ence supplies) Start: 11-29-2024 End: 11-29-2024 Chart abstracting Rajani Granger MA [facility] Comment on above: ER F/U ([facility] ER ) Start: 11-14-2024 End: 11-14-2024 Dr. Wyatt Amos DO -Emergency Department Work Phone: Start: 11-14-2024 End: 11-14-2024 [facility] Start: 11-13-2024 End: 11-13-2024 Chart abstracting Rajani Granger MA [facility] Comment on above: ER F/U ([facility] 11/13/19) Start: 11-12-2024 End: 11-12-2024 Dr. Randy Cabrales MD -Emergency [facility] t Work Phone: Start: 11-12-2024 End: 11-12-2024 Emergency department patient visit Homer Bradford Facility:[facility] Start: 11-07-2024 Dr. Azam kevin [facility] Work Phone: Start: 11-06-[address] [facility] Work Phone: Start: 11-05-[address] [facility] Work Phone: Start: 11-05-2024 End: 11-05-2024 Chart abstracting Homer Bradford MD Work Phone: [facility] Comment on above: ER Discharge Summary (H&P/) Start: 11-04-2024 End: 11-07-2024 Evaluation and management of inpatient Dr. Lauren Vela MD -Medical Surgical 3 Work Phone: Start: 11-04-2024 ambulatory Homer Bradford Facility [facility] Start: 11-04-2024 Non-patient / Non-visit Dr. Lauren Vela MD [facility] Work Phone: Start: 11-04-2024 End: 11-07-2024 Dr. Azam Guillen [facility] Surgical 3 Work Phone: Start: 09-21-2024 Non-patient / Non-visit Dr. Marco Jones MD [facility] Work Phone: Start: 09-21-2024 Dr. Marco Jones MD [facility] Work Phone: Start: 09-20-2024 Non-patient / Non-visit Dr. Marco Jones MD [facility] Work Phone: Start: 09-20-2024 Dr. Marco Jones MD [facility] Work Phone: Start: 09-19-2024 Non-patient / Non-visit Dr. Marco Jones MD [facility] Work Phone: Start: 09-19-2024 Dr. Marco Jones MD [facility] Work Phone: Start: 09-18-2024 Non-patient / Non-visit Dr. Latisha Collins MD [facility] Work Phone: Start: 09-18-2024 Dr. Guevara Collins MD [facility] Work Phone: Start: 09-17-2024 End: 09-17-2024 Chart abstracting Homer Bradford MD Work Phone: [facility] Comment on above: Outside Neurology Start: 09-17-2024 Non-patient / Non-visit Dr. Latisha Collins MD [facility] Work Phone: Start: 09-17-2024 Dr. Guevara Collins MD [facility] Work Phone: Start: 09-16-2024 Non-patient / Non-visit Dr. Latisha Collins MD [facility] Work Phone: Start: 09-16-2024 Dr. Guevara Collins MD [facility] Work Phone: Start: 09-15-2024 Non-patient / Non-visit Dr. Latisha Collins MD [facility] Work Phone: Start: 09-15-2024 Dr. Guevara Collins MD [facility] Work Phone: Start: 09-14-2024 Non-patient / Non-visit Dr. Latisha Collins MD [facility] Work Phone: Start: 09-14-2024 Dr. Guevara Collins MD -[facility] Work Phone: Start: 09-13-2024 Non-patient / Non-visit Dr. Latisha Collins MD [facility] Work Phone: Start: 09-13-2024 Dr. Guevara Collins MD [facility] Work Phone: Start: 09-13-2024 ambulatory Homer Bradford Facility :[facility] Start: 09-13-2024 Non-patient / Non-visit Dr. Osiris Garcia MD -[facility] Start: 09-13-2024 Dr. Genoveva Garcia MD [facility] Start: 09-13-2024 End: 09-13-2024 Chart abstracting Homer Bradford MD Work Phone: [facility] Comment on above: ER Discharge Summary (H&P) Start: 09-12-2024 Non-patient / Non-visit Dr. Wilfredo rendon [facility] Work Phone: Start: [...] Meagan Yusuf PA-C Work Phone: [facility] [place] Comment on above: Well adult exam (Lara [...] encounter status Meagan Yusuf PA-C Work Phone: [facility] Work Phone: Start: 03-02-2024 End: 03-05-2024 Telephone encounter Homer Bradford MD Work Phone: [facility] [place] Comment on above: CMN for incontinent supplies Start: 02-01-2024 Telephone encounter Homer Bradford MD Work Phone: [facility] Comment on above: re-fax form Home [facility] Delivered Start: 01-30-2024 Telephone encounter Homer Bradford MD Work Phone: [facility] Comment on above: Orders Start: 01-18-2024 Telephone encounter Rajani Granger MA [facility] Comment on above: Orders ([facility] Del ivered ) Start: 01-04-2024 Refill Homer helms MD Work Phone: [facility] Comment on above: Refill Request Start: 12-24-2023 Telephone encounter Homer Bradford MD Work Phone: [facility] Comment on above: Results Start: 12-23-2023 Documentation procedure Mammog marcelo Coordinator [facility] Department Start: 12-23-2023 Letter encounter Mammography Coordinator [facility] Department Start: 12-22-2023 End: 12-22-2023 Subsequent hospital visit by physician Screen Mammo [facility] Comment on above: Encounter for screen ing mammogram for breast cancer [Z12.31] Start: 11-29-2023 End: 11-29-2023 OT/PT/Speech Visit Antwan Cope PT Work Phone: [facility] Comment on above: Rotator cuff disorde r, left Start: 11-25-2023 Chart abstracting Homer epps MD Work Phone: [facility] Comment on above: Ext / Labs, D/C repo rt & Op report Start: 11-24-2023 End: 11-24-2023 Admission to same day surgery center [facility] Start: 11-24-2023 End: 11-24-2023 ambulatory [facility] Work Phone: Start: 11-17-2023 ambulatory Homer helms MD Work Phone: [facility] Start: 11-16-2023 Telephone encounter Meagan mitchell PA-C Work Phone: [facility] Comment on above: Results Start: 11-15-2023 End: 11-15-2023 ambulatory [facility] Work Phone: Start: 11-15-2023 End: 11-15-2023 Patient encounter procedure [facility] [place] Work Phone: Start: 11-15-2023 Telephone encounter Rajani Granger MA [facility] Comment on above: Patient Update Start: 11-14-2023 End: 11-14-2023 Ophthalmic examination and evaluation Homer Bradford MD Work Phone: [facility] Start: 11-14-2023 End: 11-14-2023 Patient encounter procedure Homer Bradford MD Work Phone: [facility] [place] Comment on above: Type 2 diabetes elroy itus with stage 3b chronic kidney disease, without long-term current use of insulin ([facility]) (Primary Dx); Diabetic eye exam ([facility]); Mixed hyperlipidemia; Hypotension, unspecified hypotension type; ASHD (arteriosclerotic heart disease); Paroxysmal atrial fibrillation ([facility]); Bilateral leg edema; Gastroesophageal reflux disease without esophagitis; History of CVA (cerebrovascular accident); Chronic obstructive pulmonary disease, unspecified COPD type ([facility]); Stage 3b chronic kidney disease ([facility]); Migraine without aura and without status migrainosus, not intractable; Bipolar affective disorder, remission status unspecified ([facility]); Major depressive disorder, recurrent episode, moderate ([facility]); Extrapyramidal reaction; Tardive dyskinesia; Chronic insomnia; Smoker; Low vitamin B12 level; Mixed incontinence urge and stress (male)(female); Diabetic foot ([facility]); Obesity, Class III, BMI >= 40; Encounter for screening mammogram for breast cancer Start: 11-11-2023 End: 11-11-2023 Patient encounter procedure Jarod Godwin DO Work Phone: [facility] [place] Comment on above: Rotator cuff disorde r, left (Primary Dx); Obesity, Class III, BMI >= 40 Start: 11-11-2023 End: 11-11-2023 Subsequent hospital visit by physician Nieves [facility] Work Phone: Radiology Comment on above: Chronic pain of both shoulders [M25.511, G89.29, M25.512] Start: 09-30-2023 Telephone encounter Homer Bradford MD Work Phone: [facility] Comment on above: Patient Update Start: 09-28-2023 Telephone encounter Meagan mitchell PA-C Work Phone: [facility] Comment on above: Results Start: 09-27-2023 End: 09-27-2023 Patient encounter procedure Me[facility]usuf [facility]C [facility] Comment on above: Chronic pain of both shoulders (Primary Dx); Type 2 diabetes mellitus without complication, without long-term current use of insulin (HCC); Major depressive disorder, recurrent episode, moderate (HCC); Gastroesophageal reflux disease without esophagitis; Mixed hyperlipidemia Start: 09-15-2023 Refill Homer helms MD Work Phone: [facility] Comment on above: Refill Request Start: 07-20-2023 ambulatory Homer helms MD Work Phone: [facility] [place] Start: 05-12-2023 Chart abstracting Homer epps MD Work Phone: [facility] Comment on above: Outside Imaging Start: 05-11-2023 End: 05-11-[address] Homer Bradford Work Phone: [facility] Work Phone: Start: 05-11-2023 End: 05-11-[address] Homer Bradford Work Phone: [facility] Work Phone: Start: 05-06-2023 Telephone encounter Homer Bradford MD Work Phone: [facility] Comment on above: Patient Question Start: 04-29-2023 Refill Homer helms MD Work Phone: [facility] Comment on above: Refill Request Start: 04-01-2023 Refill Homer helms MD Work Phone: [facility] Comment on above: Refill Request Start: 03-28-2023 Chart abstracting Homer epps MD Work Phone: [facility] Comment on above: ext document Start: 03-28-2023 End: 03-28-[address] Homer Bradford Work Phone: [facility]-Cat Scan, [facility] Work Phone: Start: 03-11-2023 End: 03-11-2023 Patient encounter procedure Caterina Dejesus PA-C Work Phone: General Surgery Comment on above: Screening for colon cancer Start: 03-04-2023 Telephone encounter Meagan mitchell PA-C Work Phone: [facility] Comment on above: Results Start: 03-04-2023 End: 03-04-[address] Homer Bradford Work Phone: [facility] Work Phone: Start: 03-04-2023 End: 03-04-[address] Homer Bradford Work Phone: [facility] Work Phone: Start: 02-28-2023 Telephone encounter Meagan mitchell PA-C Work Phone: [facility] Comment on above: Pulmonology CT Scan Start: 02-28-2023 End: 02-28-2023 Patient encounter procedure Meagan Yusuf PA-C Work Phone: [facility] Comment on above: Mixed hyperlipidemia (Primary Dx); Type 2 diabetes mellitus without complication, with long-term current use of insulin (HCC); Chronic obstructive pulmonary disease, unspecified COPD type (HCC); Morbid obesity due to excess calories (HCC); Stage 3b chronic kidney disease (HCC); Screening for colon cancer Start: 02-15-2023 Chart abstracting Homer epps MD Work Phone: [facility] Comment on above: Outside Imaging Start: 02-14-2023 End: 02-14-2023 ambulatory [facility] Work Phone: Start: 02-14-2023 End: 02-14-2023 Patient encounter procedure [facility]-Cat Scan, [facility] Work Phone: Start: 02-03-2023 Telephone encounter Dennys Knapp Work Phone: Podiatry Comment on above: Results Start: 02-01-2023 Refill Homer helms MD Work Phone: [facility] Comment on above: Refill Request Start: 01-12-2023 [...] 12-01-2022 End: 12-01-2022 Emergency department patient visit [facility]-Emergency Department Work Phone: Start: 11-18-2022 Refill Homer helms MD Work Phone: [facility] Comment on above: Refill Request Start: 10-22-2022 Telephone encounter Homer Bradford MD Work Phone: [facility] Comment on above: Results Start: 10-21-2022 End: 10-21-2022 Refill Homer Bradford MD Work Phone: [facility] Comment on above: Refill Request Leg cramps (Primary Dx) Start: 10-04-2022 End: 10-04-2022 Patient encounter procedure Azam Fam MD Work Phone: [facility] Comment on above: Rash (Primary Dx); Hives Start: 10-04-2022 ambulatory Homer helms MD Work Phone: [facility] Comment on above: Rash Start: 10-02-2022 Chart abstracting Homer epps MD Work Phone: [facility] Comment on above: Consult (Neurology / ) Start: 09-17-2022 Chart abstracting Homer epps MD Work Phone: [facility] Comment on above: ER F/U ([facility] ) Start: 09-16-2022 Telephone encounter Ladi barcenas THROUGH OPERATOR.SAFETY COMPLIANCE SPECIALIST Work Phone: [facility] Comment on above: Orders Start: 09-12-2022 End: 09-12-2022 [facility] Start: 08-05-2022 End: 08-05-2022 Patient encounter procedure Dennys Pool Work Phone: Podiatry Comment on above: Other diabetic neuro logical complication associated with type 2 diabetes mellitus (HCC) (Primary Dx); Onychomycosis; Pain in toe of left foot; Pain in toe of right foot; Hyperkeratosis Start: 07-28-2022 ambulatory Homer helms MD Work Phone: [facility] Start: 07-16-2022 Telephone encounter Homer Bradford MD Work Phone: [facility] Comment on above: Results Start: 07-15-2022 Telephone encounter Homer Bradford MD Work Phone: [facility] Comment on above: Fax for Incontinence Supplies Start: 07-15-2022 End: 07-20-2022 Patient encounter procedure Meagan Yusuf PA-C Work Phone: [facility] Comment on above: Leg cramps (Primary Dx) Start: 07-07-2022 Telephone encounter Zoila Almodovar Comment on above: Transportation Start: 06-14-2022 Telephone encounter Homer Bradford MD [facility] Comment on above: Medication Question Social Work Services Start: 06-09-2022 End: 06-09-2022 Ophthalmic examination and evaluation Homer Bradford MD Work Phone: [facility] [place] Start: 06-09-2022 End: 06-09-2022 Patient encounter procedure Homer Bradford MD Work Phone: [facility] Comment on above: Well adult exam (Lara radhika Dx); Type 2 diabetes mellitus without complication, with long-term current use of insulin (HCC); Diabetic eye exam ([facility]); Diabetic foot ([facility]); Mixed hyperlipidemia; Gastroesophageal reflux disease without esophagitis; Hypotension, unspecified hypotension type; Migraine without aura and without status migrainosus, not intractable; Tardive dyskinesia; Chronic insomnia; Chronic obstructive pulmonary disease, unspecified COPD type ([facility]); ASHD (arteriosclerotic heart disease); Paroxysmal atrial fibrillation ([facility]); Bilateral leg edema; Stage 3b chronic kidney disease ([facility]); History of CVA (cerebrovascular accident); Mixed incontinence urge and stress (male)(female); Incontinence of feces, unspecified fecal incontinence type; Smoker; Bipolar affective disorder, remission status unspecified ([facility]); Major depressive disorder, recurrent episode, moderate ([facility]); 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 Homer Bradford [facility] Start: 02-24-2022 Non-patient / Non-visit Dr. Edison Bradford Work Phone: [facility] Start: 02-23-2022 End: 02-23-[address] Homer Bradford Work Phone: [facility]-Pulmonary Services/Neurology Start: 02-17-2022 Non-patient / Non-visit Dr. Edison Bradford Work Phone: [facility] Start: 02-17-2022 End: 02-17-[address] Homer Bradford Work Phone: [facility]-Pulmonary Services/Neurology Start: 02-12-2022 End: 02-12-2022 Patient encounter [...] Bradford Work Phone: [facility] Start: 02-05-2022 Telephone encounter Meagan mitchell PA-C Work Phone: [facility] [place] Comment on above: Results Start: 01-05-2022 End: 01-05-[address] Homer Bradford [facility] Start: 12-28-2021 Telephone encounter Meagan mitchell PA-C Work Phone: [facility] [place] Comment on above: Results Start: 12-21-2021 End: 12-21-2021 Emergency department patient visit ROMEO SIERRA MD [facility] Start: 12-21-2021 Telephone encounter Meagan mitchell PA-C Work Phone: [facility] Comment on above: repeat lab results Start: 12-16-2021 Telephone encounter Homer Bradford MD Work Phone: [facility] Comment on above: Results Start: 12-15-2021 Telephone encounter Homer Bradford MD Work Phone: [facility] Comment on above: Patient Update Start: 12-15-2021 End: 12-15-[address] Homer Bradford [facility] Start: 12-11-2021 Telephone encounter Homer Bradford MD Work Phone: [facility] Comment on above: Orders Question Start: 12-06-2021 Telephone encounter Homer Bradford MD Work Phone: [facility] Comment on above: Results Start: 11-27-2021 End: 11-27-2021 Ophthalmic examination and evaluation Homer Bradford MD Work Phone: [facility] Start: 11-27-2021 End: 11-27-2021 Patient encounter procedure Homer Bradford MD Work Phone: [facility] Comment on above: Type 2 diabetes elroy itus without complication, with long-term current use of insulin ([facility]) (Primary Dx); Diabetic eye exam ([facility]); Mixed hyperlipidemia; Gastroesophageal reflux disease without esophagitis; Stage 3b chronic kidney disease ([facility]); Bilateral leg edema; Bipolar affective disorder, remission status unspecified ([facility]); Major depressive disorder, recurrent episode, moderate ([facility]); Paroxysmal atrial fibrillation ([facility]); ASHD (arteriosclerotic heart disease); Chronic obstructive pulmonary disease, unspecified COPD type ([facility]); Migraine without aura and without status migrainosus, not intractable; Hypotension, unspecified hypotension type; History of CVA (cerebrovascular accident); Chronic insomnia; Tardive dyskinesia; Morbid obesity due to excess calories ([facility]); Smoker; Extrapyramidal reaction; Mixed incontinence urge and stress (male)(female) Start: 11-20-2021 Refill Homer helms MD Work Phone: [facility] Comment on above: Refill Request Start: 11-19-2021 Telephone encounter Homer Bradford MD Work Phone: [facility] Comment on above: Orders Start: 10-20-2021 Telephone encounter Homer Bradford MD Work Phone: [facility] Comment on above: Supplies Needed Start: 10-19-2021 Telephone encounter Homer Bradford MD Work Phone: [facility] [place] Comment on above: DME company and supp lies. Start: 10-15-2021 Refill Homer helms MD Work Phone: [facility] Comment on above: Refill Request Start: 10-14-2021 End: 10-14-2021 Patient encounter procedure Dick Dodd MD Work Phone: Internal [facility] Comment on above: History of recent pn eumonia (Primary Dx); History of respiratory failure; Physical deconditioning; Muscle weakness (generalized); Dysphagia, unspecified type; Type 2 diabetes mellitus without complication, with long-term current use of insulin (HCC); Gastroesophageal reflux disease without esophagitis; Chronic obstructive pulmonary disease, unspecified COPD type ([facility]); Irritable bowel syndrome with both constipation and diarrhea Start: 09-28-2021 End: 09-28-[address] Homer Bradford [facility] Start: 09-07-2021 Non-patient / Non-visit Dr. Edison Bradford Work Phone: [facility] In[facility] Phys[facility] Start: 09-06-2021 Non-patient / Non-visit Dr. Edison Bradford Work Phone: [facility] Start: 09-06-2021 Non-patient / Non-visit Dr. Edison Bradford Work Phone: [facility] Start: 09-05-2021 Non-patient / Non-visit Dr. Edison Bradford Work Phone: [facility] Start: 09-05-2021 Non-patient / [facility] Start: 09-04-2021 Non-patient / Non-visit Dr. Edison Bradford Work Phone: [facility] Start: 09-04-2021 Non-patient / Non-[facility]. [facility] Start: 09-03-2021 Non-patient / Non-visit Dr. Edison Bradford Work Phone: [facility] Start: 09-03-2021 Non-patient / Non-visit Dr. Edison Bradford Work Phone: [facility] Start: 09-02-2021 Non-patient / Non-visit Dr. Edison Bradford Work Phone: [facility] Start: 09-01-2021 Non-patient / Non-visit Dr. Edison Bradford Work Phone: [facility] Start: 08-31-2021 Non-patient / Non-visit Dr. Edison Bradford Work Phone: [facility] Start: 08-31-2021 Non-patient / Non-[facility]. Edison Bradford [facility] Start: 08-30-2021 Non-patient / Non-visit Dr. Edison Bradford Work Phone: [facility] Start: 08-29-2021 Non-patient / Non-visit Dr. Edison Bradford Work Phone: [facility] Start: 08-28-2021 Non-patient / Non-visit Dr. Edison Bradford Work Phone: [facility] Start: 08-27-2021 Non-patient / Non-visit Dr. Edison Bradford Work Phone: [facility] Start: 08-27-2021 Non-patient / Non-visit Dr. Edison Bradford Work Phone: [facility] Start: 08-27-2021 Non-patient / Non-visit Dr. Edison Bradford Work Phone: [facility] Start: 08-26-2021 Non-patient / Non-visit Dr. Edison Bradford Work Phone: [facility] Start: 08-26-2021 Non-patient / Non-visit Dr. Edison Bradford Work Phone: [facility] Start: 08-25-2021 Non-patient / Non-visit Dr. Edison Bradford Work Phone: [facility] Start: 08-25-2021 End: 09-07-2021 Evaluation and management of inpatient Dr. Homer Bradford Work Phone: [facility] Start: 11-20-2020 End: 11-20-2020 Subsequent hospital visit by physician [facility] Work Phone: Radiology Comment on above: Left hip pain [M25.5 52] Start: 03-12-2019 Ophthalmic examinati on and evaluation HOMER BRADFORD [facility] Work Phone: Start: 11-16-2018 Patient encounter status Concetta Dodd MD Work Phone: [facility] Work Phone: Start: 01-07-2012 Evaluation and management of inpatient Dr. Homer Bradford Work Phone: [facility]- Start: 01-07-2012 Broderick hawkins Work Phone: - [...] Visit [facility] Ophthalmology [address] [place], [place] [id number] Alize Wilcox, OD [address] [place] [address] Diagnostics, Eye Tech And [facility] [place] [phone] (Work) 1 YR F/U for diabetic eye exam. Ophthalmology Comment on above: 1 YR F/U for diabetic eye exam. Start: 03-21-2026 Glaucoma screening Dilated Retinal Exam [facility] Start: 02-21-2026 Annual PCP Team Chronic Disease Visit Annual PCP Team Chronic Disease Visit [facility] Start: 01-25-2026 Annual PCP Team Chronic Disease Visit Annual PCP Team Chronic Disease Visit [facility] Start: 01-17-2026 Annual PCP Team Chronic Disease Visit Annual PCP Team Chronic Disease Visit [facility] Start: 01-17-2026 Complete blood count Hemoglobin/Hematocrit [facility] Start: 01-17-2026 Creatinine measurement Serum Creatinine [facility] Start: 12-18-2025 Annual PCP Team Chronic Disease Visit Annual PCP Team Chronic Disease Visit [facility] Start: 12-18-2025 Complete blood count Hemoglobin/Hematocrit [facility] Start: 12-18-2025 Creatinine measurement Serum Creatinine [facility] Start: 12-18-2025 Hepatitis B surface antibody level LDL Cholesterol [facility] Start: 06-19-2025 Hemoglobin A1c measurement HbA1C [facility] Start: 05-24-2025 End: 05-24-2025 Patient encounter procedure 05/24/2025 12:20 PM EST Office Visit [facility] [address] [place] [address] Meagan Yusuf PA-C [address] [place] [address] 3 month follow up [facility] [place] Comment on above: 3 month follow up Start: 04-30-2025 [facility] Start: 04-30-2025 [facility] Start: 04-04-2025 End: 04-04-2025 Patient encounter procedure 04/04/2025 11:20 AM EDT Office Visit Orthopaedics [address] [place] [address] Ortiz Massey MD [address] [place] [address] Rotator cuff disorder, left [M67.912] Orthopaedics Comment on above: Rotator cuff disorder, left [M67.912] Start: 04-03-2025 End: 04-03-2025 Patient encounter procedure 04/03/2025 3:00 PM EDT Appointment Mammogram [address] [place] [address] Dx: Encounter for screening mammogram for breast cancer [Z12.31] Mammogram Comment on above: Dx: Encounter for screening mammogram fo r breast cancer [Z12.31] Start: 03-22-2025 Annual PCP Team Chronic Disease Visit Annual PCP Team Chronic Disease Visit [facility] Start: 03-22-2025 Creatinine measurement Serum Creatinine [facility] Start: 03-22-2025 Diabetic foot examination Diabetic Foot Exam [facility] Start: 03-22-2025 Hepatitis B surface antibody level LDL Cholesterol [facility] Start: 03-21-2025 End: 03-21-2025 Patient encounter procedure 03/21/2025 1:30 PM EDT Office Visit [facility] Ophthalmology [address] [address] Alize Wilcox, OD [address] [place] [address] Diagnostics, Eye Tech And [address] [place] [address] Dx: Diabetic eye exam (HCC) [Z01.00, E11.9] Ophthalmology Comment on above: Dx: Diabetic eye exam (HCC) [Z01.00, E11 .9] Start: 03-18-2025 Screening for malignant neoplasm of colon Colorectal Cancer Screening [facility] Comment on above: Postponed from 2007 (Declined at t his time) Start: 03-11-2025 US scan of bladder [facility] Start: 03-04-2025 End: 03-04-2025 Patient encounter procedure 03/04/2025 1:15 PM EDT Office Visit [facility] Op[facility]mology [address] [place] [address] Alize Wilcox, OD [address] [place] [address] Diagnostics, Eye Tech And [address] [place] [id number] Dx: Diabetic eye exam (HCC) [Z01.00, E11.9] Ophthalmology Comment on above: Dx: Diabetic eye exam (HCC) [Z01.00, E11 .9] Start: 02-21-2025 End: 02-21-2025 Patient encounter procedure 02/21/2025 1:00 PM EDT Office Visit [facility] [address] [place] [address] Homer Bradford MD [address] [place] [address] 2 month follow up 4 complexity [facility] Comment on above: 2 month follow up 4 complexity Start: 01-31-2025 [facility] Start: 01-25-2025 End: 04-26-2025 Bacteria identified in Urine by Culture [facility] Work Phone: Comment on above: Expected: 01/25/2025, Expires: Start: 01-25-2025 End: 01-25-2025 Patient encounter procedure 01/25/2025 11:40 AM EDT Office Visit [facility] [address] [place], [place] [id number] Meagan Yusuf PA-C [address] [place] [address] rescheduled from 01/22 [facility] Comment on above: rescheduled from 01/22 Start: 01-17-2025 End: 04-18-2025 Basic metabolic 2000 panel - Serum or Plasma [facility] Work Phone: Comment on above: Expected: 01/17/2025, Expires: Start: 01-17-2025 End: 01-17-2025 Patient encounter procedure 01/17/2025 11:40 AM EDT Office Visit [facility] [address] [place], [place] [address] Meagan Yusuf PA-C [address] [place] [address] [facility] Medsurg for Sepsis and UTI [facility] [place] Comment on above: [facility] Medsurg for Sepsis and UTI Start: 01-11-2025 Patient discharge [facility] Start: 01-10-2025 Consultation for treatment [facility] Start: 01-10-2025 Physiotherapy of chest [facility] Start: 01-09-2025 [facility] Start: 01-08-2025 Care regimes management [facility] Start: 01-08-2025 Notification of physician [facility] Start: 01-08-2025 Following clinical pathway protocol [facility] Start: 01-08-2025 Aspiration precautions [facility] Start: 01-08-2025 Assessment of risk of venous thromboembolism [facility] Start: 01-08-2025 Fall prevention [facility] Start: 01-08-2025 Insertion of catheter into peripheral vein [facility] Start: 01-08-2025 Introduction of urinary catheter [facility] Start: 01-08-2025 Measuring intake and output [facility] Start: 01-08-2025 Oxygen therapy [facility] Start: 01-08-2025 Providing care according to standard [facility] Start: 01-08-2025 Provision of activity privileges [facility] Start: 01-08-2025 Referral for physical therapy [facility] Start: 01-08-2025 Referral to occupational therapist [facility] Start: 01-08-2025 Referral to service [facility] Start: 01-08-2025 Tobacco use cessation education [facility] Start: 01-08-2025 Vital signs measurements [facility] Start: 01-08-2025 Admission procedure [facility] Start: 01-08-2025 Hospital admission, emergency, from emergency room, medical nature [facility] Start: 01-08-2025 End: 01-08-2025 [facility] Start: 01-08-2025 Blood culture [facility] Start: 01-08-2025 Consultation [facility] Start: 01-08-2025 Inhalation therapy procedure [facility] Start: 01-08-2025 Patient referral to dietitian [facility] Start: 12-21-2024 Screening for malignant neoplasm of breast Mammogram Screening [facility] Start: 12-18-2024 End: 03-19-2025 Cobalamin (Vitamin B12) [Mass/volume] in Serum or Plasma [facility] Work Phone: Comment on above: Expected: 12/18/2024, Expires: Start: 12-18-2024 End: 03-19-2025 Comprehensive metabolic 2000 panel - Serum or Plasma [facility] Comment on above: Expected: 12/18/2024, Expires: Start: 12-18-2024 End: 03-19-2025 LIPID PANEL, NONFASTING [facility] Comment on above: Expected: 12/18/2024, Expires: Start: 12-18-2024 End: 03-19-2025 Magnesium [Mass/volume] in Serum or Plasma [facility] Comment on above: Expected: 12/18/2024, Expires: Start: 12-18-2024 End: 03-19-2025 Microalbumin/Creatinine [Mass Ratio] in Urine ALBUMIN/CREATININE RATIO, URINE Lab Routine Type 2 diabetes mellitus with stage 3b chronic kidney disease, without long-term current use of insulin (HCC) Expected: 12/18/2024, Expires: 03/19/2025 [facility] Comment on above: Expected: 12/18/2024, Expires: Start: 12-18-2024 End: 03-19-2025 Urinalysis complete panel - Urine URINALYSIS, WITH MICROSCOPIC Lab Routine Type 2 diabetes mellitus with stage 3b chronic kidney disease, without long-term current use of insulin (HCC) Mixed hyperlipidemia Stage 3b chronic kidney disease (HCC) Expected: 12/18/2024, Expires: 03/19/2025 [facility] Comment on above: Expected: 12/18/2024, Expires: Start: 12-18-2024 End: 12-18-2024 Patient encounter procedure 12/18/2024 11:20 AM EDT Office Visit [facility] [place] [address] [place] [address] Homer Bradford MD [address] [place] [address] hospital follow up [facility] Comment on above: hospital follow up Start: 11-14-2024 End: 11-14-2024 [facility] Start: 11-14-2024 Consultation [facility] Start: 11-13-2024 Annual PCP Team Chronic Disease Visit Annual PCP Team Chronic Disease Visit [facility] Start: 11-12-2024 Insj non-ndwellg bladder catheter [facility] Start: 11-12-2024 [facility] Start: 11-12-2024 Consultation [facility] Start: 11-07-2024 End: 11-07-2024 Patient encounter procedure 11/07/2024 7:00 PM EDT Office Visit [facility] [address] [place] [address] Homer Bradford MD [address] [place] [address] [facility] follow up PE? had COVID [facility] Comment on above: [facility] follow up PE? had COVID Start: 11-07-2024 Patient discharge [facility] Start: 11-07-2024 [facility] Start: 11-05-2024 [facility] Start: 11-04-2024 End: 11-04-2024 Following clinical pathway protocol [facility] Start: 11-04-2024 Assessment of risk of venous thromboembolism [facility] Start: 11-04-2024 Care regimes management [facility] Start: 11-04-2024 Fall prevention [facility] Start: 11-04-2024 Inhalation therapy procedure [facility] Start: 11-04-2024 Insertion of catheter into peripheral vein [facility] Start: 11-04-2024 Introduction of urinary catheter [facility] Start: 11-04-2024 Measuring intake and output [facility] Start: 11-04-2024 Notification of physician [facility] Start: 11-04-2024 Providing care according to standard [facility] Start: 11-04-2024 Provision of activity privileges [facility] Start: 11-04-2024 Referral to occupational therapist [facility] Start: 11-04-2024 Referral to service [facility] Start: 11-04-2024 Tobacco use cessation education [facility] Start: 11-04-2024 End: 11-04-2024 [facility] Start: 11-04-2024 Verification routine [facility] Start: 11-04-2024 End: 11-04-2024 [facility] Start: 11-04-2024 Admission procedure [facility] Start: 11-04-2024 Hospital admission, emergency, from emergency room, medical nature [facility] Start: 11-04-2024 Bacteria identified in Blood by Culture Blood Culture [facility] Start: 11-04-2024 Bacteria identified in Urine by Culture Urine Culture [facility] Start: 11-04-2024 Consultation [facility] Start: 09-26-2024 Annual PCP Team Chronic Disease Visit Annual PCP Team Chronic Disease Visit [facility] Start: 09-26-2024 Complete blood count Hemoglobin/Hematocrit [facility] Start: 09-26-2024 Creatinine measurement Serum Creatinine [facility] Start: 09-26-2024 Hepatitis B screening Urine Albumin:Creatinine Ratio [facility] Start: 09-26-2024 Hepatitis B surface antibody level LDL Cholesterol [facility] Start: 09-21-2024 Patient discharge [facility] Start: 09-20-2024 Care planning and problem solving actions [facility] Start: 09-20-2024 End: 09-20-2024 Patient encounter procedure 09/20/2024 10:20 AM EST Office Visit Family [facility] [address] [place] [address] Homer Bradford MD [address] [place] [address] 6 month f/u [facility] Comment on above: 6 month f/u Start: 09-19-2024 Hemoglobin A1c measurement HbA1C [facility] Start: 09-16-2024 [facility] Start: 09-13-2024 [facility] Start: 09-13-2024 Inhalation therapy procedure [facility] Start: 09-12-2024 Following clinical pathway protocol [facility] Start: 09-12-2024 Transfusion of blood product [facility] Start: 09-12-2024 Aspiration precautions [facility] Start: 09-12-2024 Assessment of risk of venous thromboembolism [facility] Start: 09-12-2024 Cardiac monitoring [facility] Start: 09-12-2024 Care regimes management [facility] Start: 09-12-2024 Catheterization of vein [facility] Start: 09-12-2024 Consultation [facility] Start: 09-12-2024 Elevation of head of bed [facility] Start: 09-12-2024 Exercises [facility] Start: 09-12-2024 Insertion of catheter into peripheral vein [facility] Start: 09-12-2024 Measuring intake and output [facility] Start: 09-12-2024 Notification of physician [facility] Start: 09-12-2024 Oxygen therapy [facility] Start: 09-12-2024 Patient referral to dietitian [facility] Start: 09-12-2024 Providing care according to standard [facility] Start: 09-12-2024 Provision of activity privileges [facility] Start: 09-12-2024 Referral to occupational therapist [facility] Start: 09-12-2024 Referral to service [facility] Start: 09-12-2024 Speech therapy assessment [facility] Start: 09-12-2024 Telemedicine consultation with patient [facility] Start: 09-12-2024 Tobacco use cessation education [facility] Start: 09-12-2024 End: 09-12-2024 [facility] Start: 09-12-2024 Vital signs measurements [facility] Start: 09-12-2024 Verification routine [facility] Start: 09-12-2024 Admission procedure [facility] Start: 09-12-2024 [facility] Start: 09-12-2024 [facility] Start: 09-12-2024 Consultation [facility] Start: 07-05-2024 End: 07-05-2024 Patient encounter procedure 07/05/2024 1:00 PM EST Office Visit [facility] [address] [place] [address] Alize Wilcox, OD [address] [place] [address] Type 2 diabetes mellitus with stage 3b chronic kidney disease, without long-term... Ophthalmology Comment on above: Type 2 diabetes mellitus with stage 3b c hronic kidney disease, without long-term... Start: 06-05-2024 End: 06-05-2024 Patient encounter procedure 06/05/2024 2:30 PM EST Office Visit [facility] [address] [place] [address] Alize Wilcox, OD [address] [place] [address] Type 2 diabetes mellitus with stage 3b chronic kidney disease, without long-term... Ophthalmology Comment on above: Type 2 diabetes mellitus with stage 3b c hronic kidney disease, without long-term... Start: 05-16-2024 Creatinine measurement Serum Creatinine [facility] Start: 04-06-2024 End: 04-06-2024 ambulatory 04/06/2024 1:30 PM EDT OT/PT/Speech Visit [facility] Physical Therapy [address] [place] [address] Antwan Cope, PT [address] [place] [id number] rt shoulder [facility] Comment on above: rt shoulder Start: 03-30-2024 End: 03-30-2024 Patient encounter procedure 03/30/2024 1:00 PM EDT Office Visit Podiatry [address] [place] [address] Dennys Pool [address] [place] [address] Diab Foor F/u Podiatry Comment on above: Diab Foor F/u Start: 03-29-2024 Hemoglobin A1c measurement HbA1C [facility] Start: 03-22-2024 End: 06-21-2024 Comprehensive metabolic 2000 panel - Serum or Plasma [facility] Comment on above: Expected: 03/22/2024, Expires: Start: 03-22-2024 End: 06-21-2024 Hemoglobin A1c in Blood [facility] Work Phone: Comment on above: Expected: 03/22/2024, Expires: Start: 03-22-2024 End: 06-21-2024 LIPID PANEL, NONFASTING [facility] Comment on above: Expected: 03/22/2024, Expires: Start: 03-22-2024 End: 03-22-2024 Patient encounter procedure 03/22/2024 12:40 PM EDT Office Visit [facility] [address] [facility] [place] [id number] Meagan Yusuf PA-C [address] [facility] [place] [id number] medicare wellness [facility] Comment on above: medicare wellness Start: 03-18-2024 Covid-19 Vaccine ( season) Covid-19 Vaccine ( season) [facility] Start: 03-18-2024 Covid-19 Vaccine ( season) Covid-19 Vaccine ( season) [facility] Start: 03-16-2024 End: 03-16-2024 Patient encounter procedure 03/16/2024 1:40 PM EDT Office Visit [facility] [place] [address] [facility] [place] [address] Homer Bradford MD [address] [facility] [place], [place] [id number] medicare wellness [facility] [place] Comment on above: medicare wellness Start: 03-15-2024 End: 03-15-2024 ambulatory 03/15/2024 2:00 PM EDT OT/PT/Speech Visit [facility] Physical Therapy [address] [place] [id number] Antwan Cope, PT [address] [facility] [place] [address] rt shoulder [facility] Physical Therapy Comment on above: rt shoulder Start: 02-29-2024 ANNUAL PCP TEAM CHRONIC DISEASE VISIT ANNUAL PCP TEAM CHRONIC DISEASE VISIT [facility] Start: 02-29-2024 Hepatitis B surface antibody level LDL CHOLESTEROL [facility] Start: 02-29-2024 SERUM CREATININE SERUM CREATININE [facility] Start: 01-09-2024 End: 01-09-2024 OT/PT/Speech Visit 01/09/2024 2:00 PM EDT OT/PT/Speech Visit [facility] Physical Therapy [address] [place] [address] Antwan Cope, PT [address] [place] [address] Rotator cuff disorder, left [M67.912] [facility] Physical Therapy Comment on above: Rotator cuff disorder, left [M67.912] Start: 01-05-2024 Glaucoma screening Dilated Retinal Exam [facility] Start: 01-05-2024 Hepatitis C antibody, confirmatory test DILATED RETINAL EXAM [facility] Start: 12-16-2023 End: 12-16-2023 Patient encounter procedure Podiatry Comment on above: Chronic pain of both shoulders [M25.511, G89.29, M25.512] Nail care Start: 11-29-2023 End: 11-29-2023 OT/PT/Speech Visit 11/29/2023 4:30 PM EDT OT/PT/Speech Visit [facility] Physical Therapy [address] [place] [address] Antwan Cope, PT [address] [facility] [place] [address] Rotator cuff disorder, left [M67.912] [facility] Physical Therapy Comment on above: Rotator cuff disorder, left [M67.912] Start: 11-24-2023 Patient discharge [facility] Start: 11-16-2023 End: 11-16-2023 Patient encounter procedure 11/16/2023 1:50 PM EDT Appointment Mammogram [address] [place] [address] Encounter for screening mammogram for breast cancer [Z12.31 Mammogram Comment on above: Encounter for screening mammogram for br east cancer [Z12.31 Start: 11-14-2023 End: 11-14-2023 Patient encounter procedure 11/14/2023 2:00 PM EDT Office Visit [facility] [place] [address] [place], [place] [phone] Homer Bradford MD [address] [place], [place] [phone] Lab results [facility] Comment on above: Lab results Start: 11-03-2023 Complete blood count Hemoglobin/Hematocrit [facility] Start: 11-03-2023 HEMOGLOBIN/HEMATOCRIT HEMOGLOBIN/HEMATOCRIT [facility] Start: 11-03-2023 SERUM CREATININE SERUM CREATININE [facility] Start: 10-22-2023 ANNUAL PCP TEAM CHRONIC DISEASE VISIT ANNUAL PCP TEAM CHRONIC DISEASE VISIT [facility] Start: 10-22-2023 COVID-19 VACCINE (#1) COVID-19 VACCINE (#1) [facility] Comment on above: Postponed from 1962 (Declined at t his time) Start: 10-05-2023 ANNUAL PCP TEAM CHRONIC DISEASE VISIT ANNUAL PCP TEAM CHRONIC DISEASE VISIT [facility] Start: 09-27-2023 End: 12-27-2023 Hemoglobin A1c in Blood [facility] Work Phone: Comment on above: Expected: 09/27/2023, Expires: Start: 09-16-2023 ANNUAL PCP TEAM CHRONIC DISEASE VISIT ANNUAL PCP TEAM CHRONIC DISEASE VISIT [facility] Start: 09-16-2023 SERUM CREATININE SERUM CREATININE [facility] Start: 08-31-2023 Hemoglobin A1c measurement HbA1C [facility] Start: 08-31-2023 Hemoglobin A1c/Hemoglobin.total in Blood HBA1C [facility] Start: 07-15-2023 ANNUAL PCP TEAM CHRONIC DISEASE VISIT ANNUAL PCP TEAM CHRONIC DISEASE VISIT [facility] Start: 07-15-2023 HEMOGLOBIN/HEMATOCRIT HEMOGLOBIN/HEMATOCRIT [facility] Start: 07-15-2023 Hepatitis B surface antibody level LDL CHOLESTEROL [facility] Start: 07-15-2023 SERUM CREATININE SERUM CREATININE [facility] Start: 06-09-2023 3 comp foot exam completed DIABETIC FOOT EXAM [facility] Start: 06-09-2023 ANNUAL PCP TEAM CHRONIC DISEASE VISIT ANNUAL PCP TEAM CHRONIC DISEASE VISIT [facility] Start: 06-09-2023 Diabetic foot examination Diabetic Foot Exam [facility] Start: 06-09-2023 SHINGRIX VACCINE (1 of 2) SHINGRIX VACCINE (1 of 2) [facility] Comment on above: Postponed from 01/30/2012 (Insurance Cov erage) Start: 05-22-2023 HPV TESTING HPV TESTING [facility] Start: 05-22-2023 PAP TESTING PAP TESTING [facility] Start: 05-22-2023 Screening for malignant neoplasm of cervix [facility] Start: 05-11-2023 CORE NDL BX LNG/MED PERQ CORE NDL BX LNG/MED PERQ [facility] Start: 03-28-2023 Following clinical pathway protocol [facility] Start: 03-28-2023 Catheterization of vein [facility] Start: 03-28-2023 Oxygen therapy [facility] Start: 03-28-2023 Patient discharge [facility] Start: 03-28-2023 Vital signs measurements [facility] Start: 03-18-2023 Covid-19 Vaccine ( season) Covid-19 Vaccine () [facility] Start: 02-28-2023 End: 04-30-2023 Comprehensive metabolic 2000 panel - Serum or Plasma [facility] [facility] Comment on above: Expected: 02/28/2023, Expires: 3 Start: 02-28-2023 End: 04-30-2023 LIPID PANEL, NONFASTING [facility] Work Phone: Comment on above: Expected: 02/28/2023, Expires: 3 Start: 02-28-2023 End: 04-30-2023 Thyrotropin [Units/volume] in Serum or Plasma [facility] Work Phone: Comment on above: Expected: 02/28/2023, Expires: 3 Start: 01-13-2023 Hemoglobin A1c/Hemoglobin.total in Blood HBA1C [facility] Start: 12-15-2022 SERUM CREATININE SERUM CREATININE [facility] Start: 12-05-2022 Hepatitis B screening URINE ALBUMIN:CREATININE RATIO [facility] Start: 12-04-2022 Hepatitis B surface antibody level LDL CHOLESTEROL [facility] Start: 12-04-2022 SERUM CREATININE SERUM CREATININE [facility] Start: 11-27-2022 ANNUAL PCP TEAM CHRONIC DISEASE VISIT ANNUAL PCP TEAM CHRONIC DISEASE VISIT [facility] Start: 10-14-2022 ANNUAL PCP TEAM CHRONIC DISEASE VISIT ANNUAL PCP TEAM CHRONIC DISEASE VISIT [facility] Start: 09-16-2022 End: 11-16-2022 Erythrocyte sedimentation rate SED RATE WESTERGREN Lab Routine Rash Expected: 09/16/2022, Expires: 11/16/2022 [facility] Work Phone: Comment on above: Expected: 09/16/2022, Expires: Start: 06-24-2022 Mammography [facility] Start: 06-24-2022 Screening for malignant neoplasm of breast Mammogram Screening [facility] Start: 06-09-2022 End: 08-09-2022 CBC W Auto Differential panel - Blood CBC + DIFF Lab Routine Stage 3b chronic kidney disease (HCC) Type 2 diabetes mellitus without complication, with long-term current use of insulin (HCC) Medication management Expected: 06/09/2022, Expires: 08/09/2022 [facility] Work Phone: Comment on above: Expected: 06/09/2022, Expires: 3 Start: 06-09-2022 End: 08-09-2022 Cobalamin (Vitamin B12) [Mass/volume] in Serum or Plasma VITAMIN B12 BLOOD Lab Routine Gastroesophageal reflux disease without esophagitis Medication management Expected: 06/09/2022, Expires: 08/09/2022 [facility] Work Phone: Comment on above: Expected: 06/09/2022, Expires: 3 Start: 06-09-2022 End: 08-09-2022 Comprehensive metabolic 2000 panel - Serum or Plasma COMP METABOLIC PANEL Lab Routine Type 2 diabetes mellitus without complication, with long-term current use of insulin (HCC) Mixed hyperlipidemia Expected: 06/09/2022, Expires: 08/09/2022 [facility] Work Phone: Comment on above: Expected: 06/09/2022, Expires: 3 Start: 06-09-2022 End: 08-09-2022 Hemoglobin A1c in Blood HGB A1C Lab Routine Type 2 diabetes mellitus without complication, with long-term current use of insulin (HCC) Expected: 06/09/2022, Expires: 08/09/2022 [facility] Work Phone: Comment on above: Expected: 06/09/2022, Expires: 3 Start: 06-09-2022 End: 08-09-2022 LIPID PANEL, NONFASTING LIPID PANEL, NONFASTING Lab Routine Type 2 diabetes mellitus without complication, with long-term current use of insulin (HCC) Mixed hyperlipidemia ASHD (arteriosclerotic heart disease) Expected: 06/09/2022, Expires: 08/09/2022 [facility] Work Phone: Comment on above: Expected: 06/09/2022, Expires: 3 Start: 06-09-2022 End: 08-09-2022 Magnesium [Mass/volume] in Serum or Plasma MAGNESIUM BLD Lab Routine Gastroesophageal reflux disease without esophagitis Medication management Leg cramps Expected: 06/09/2022, Expires: 08/09/2022 [facility] Work Phone: Comment on above: Expected: 06/09/2022, Expires: 3 Start: 06-06-2022 Hemoglobin A1c/Hemoglobin.total in Blood HBA1C [facility] Start: 05-29-2022 3 comp foot exam completed DIABETIC FOOT EXAM [facility] Start: 05-29-2022 COVID-19 VACCINE (#1) COVID-19 VACCINE (#1) [facility] Comment on above: Postponed from 1967 (Declined at t his time) Postponed from 08/01 (Declined at this time) Start: 05-29-2022 COVID-19 VACCINE (1) COVID-19 VACCINE (1) [facility] Comment on above: Postponed from 1967 (Declined at t his time) Start: 05-29-2022 Hepatitis B surface antibody level LDL CHOLESTEROL [facility] Start: 05-29-2022 SERUM CREATININE SERUM CREATININE [facility] Start: 2022 Hepatitis B Vaccine (1 of 3 - Risk 3-dose series) Hepatitis B Vaccine (1 of 3 - Risk 3-dose series) [facility] Start: 2022 RSV Vaccine (1 - 1-dose 60+ series) RSV Vaccine (1 - 1-dose 60+ series) [facility] Start: 2022 RSV Vaccine (1 - Risk 60-74 years 1-dose series) RSV Vaccine (1 - Risk 60-74 years 1-dose series) [facility] Start: 01-07-2022 End: 03-09-2022 POTASSIUM BLD POTASSIUM BLD Lab Routine Hypokalemia Expected: 01/07/2022, Expires: 03/09/2022 [facility] Work Phone: Comment on above: Expected: 01/07/2022, Expires: 2 Start: 12-21-2021 End: 02-20-2022 POTASSIUM BLD POTASSIUM BLD Lab Routine Hypokalemia Expected: 12/21/2021, Expires: 02/20/2022 [facility] Work Phone: Comment on above: Expected: 12/21/2021, Expires: 2 Start: 12-16-2021 End: 02-15-2022 POTASSIUM BLD POTASSIUM BLD Lab Routine Hypokalemia Expected: 12/16/2021, Expires: 02/15/2022 [facility] Work Phone: Comment on above: Expected: 12/16/2021, Expires: 2 Start: 12-08-2021 HEMOGLOBIN/HEMATOCRIT HEMOGLOBIN/HEMATOCRIT [facility] Start: 12-06-2021 End: 02-05-2022 Basic metabolic 2000 panel - Serum or Plasma BASIC METABOLIC PNL Lab Routine Stage 3b chronic kidney disease (HCC) Expected: 12/06/2021, Expires: 02/05/2022 [facility] Work Phone: Comment on above: Expected: 12/06/2021, Expires: 2 Start: 11-27-2021 End: 01-27-2022 ALBUMIN/CREAT RATIO RND UR ALBUMIN/CREAT RATIO RND UR Lab Routine Type 2 diabetes mellitus without complication, with long-term current use of insulin (HCC) Expected: 11/27/2021, Expires: 01/27/2022 [facility] Work Phone: Comment on above: Expected: 11/27/2021, Expires: 2 Start: 11-27-2021 End: 01-27-2022 Comprehensive metabolic 2000 panel - Serum or Plasma COMP METABOLIC PANEL Lab Routine Type 2 diabetes mellitus without complication, with long-term current use of insulin (HCC) Mixed hyperlipidemia Stage 3b chronic kidney disease (HCC) Expected: 11/27/2021, Expires: 01/27/2022 [facility] Work Phone: Comment on above: Expected: 11/27/2021, Expires: 2 Start: 11-27-2021 End: 01-27-2022 Hemoglobin A1c/Hemoglobin.total in Blood HGB A1C Lab Routine Type 2 diabetes mellitus without complication, with long-term current use of insulin (HCC) Expected: 11/27/2021, Expires: 01/27/2022 [facility] Work Phone: Comment on above: Expected: 11/27/2021, Expires: 2 Start: 11-27-2021 End: 01-27-2022 LIPID PANEL, NONFASTING LIPID PANEL, NONFASTING Lab Routine Type 2 diabetes mellitus without complication, with long-term current use of insulin (HCC) Mixed hyperlipidemia Expected: 11/27/2021, Expires: 01/27/2022 [facility] Work Phone: Comment on above: Expected: 11/27/2021, Expires: 2 Start: 11-26-2021 Hemoglobin A1c/Hemoglobin.total in Blood HBA1C [facility] Start: 11-25-2021 Hepatitis B screening URINE ALBUMIN:CREATININE RATIO [facility] Start: 11-25-2021 Hepatitis C antibody, confirmatory test DILATED RETINAL EXAM [facility] Start: 11-20-2021 SHINGRIX VACCINE (1 of 2) SHINGRIX VACCINE (1 of 2) [facility] Comment on above: Postponed from 01/30/2012 (Insurance Cov erage) Start: 09-27-2021 Colonoscopy COLONOSCOPY [facility] Start: 09-27-2021 COLORECTAL CANCER SCREENING COLORECTAL CANCER SCREENING [facility] Start: 09-27-2021 Screening for malignant neoplasm of colon [facility] Start: 09-30-2019 Influenza vaccination LUNG CANCER SCREENING [facility] Start: 05-05-2017 End: 05-05-2017 Mammogram, screening Mammogram, Screening, both breasts [facility] Start: 04-26-2017 End: 04-26-2017 Endometrial bx w/wo endocervix bx w/o dilat spx Endometrial Biopsy [facility] Start: 04-26-2017 End: 04-26-2017 Pathology Pathology [facility] Start: 04-26-2017 End: 04-26-2017 Us pelvic nonobstetric real-time image complete US Pelvis [facility] Start: 04-26-2017 End: 04-26-2017 Us transvaginal US Transvaginal [facility] Start: 07-18-2012 Pneumococcal Vaccine: 50+ (2 of 2 - PCV) Pneumococcal Vaccine: 50+ (2 of 2 - PCV) [facility] Start: 01-30-2012 SHINGRIX VACCINE (1 of 2) SHINGRIX VACCINE (1 of 2) [facility] Start: 2007 COLOGUARD (FIT-DNA) COLOGUARD (FIT-DNA) [facility] Start: [address] COLONOGRAPHY [facility] Start: 2007 FECAL OCCULT BLOOD FECAL OCCULT BLOOD [facility] Start: 2007 Screening for malignant neoplasm of colon [facility] Start: 2007 SIGMOIDOSCOPY SIGMOIDOSCOPY [facility] Start: 01-30-1992 Zoledronic acid therapy ALPHA-1 ANTITRYPSIN DEFICIENCY SCREENING [facility] Start: 1981 HEPATITIS B (1 of 3 - Risk 3-dose series) HEPATITIS B (1 of 3 - Risk 3-dose series) [facility] Start: 01-30-1980 Anxiety Screening Anxiety Screening [facility] Start: 1962 COVID-19 VACCINE (#1) COVID-19 VACCINE (#1) [facility] COVID & INFLUENZA A/ B & RSV PCR, ROUTINE COVID & INFLUENZA A/B & RSV PCR, ROUTINE Microbiology Routine Subacute cough 03/22/2024 1:38 PM EDT [facility] CT Chest [facility] Work Phone: Exercise tolerance test [facility] Work Phone: Hemoglobin.gastroint maurilio nal.lower [Presence] in Stool by Immunoassay FECAL OCCULT BLOOD TEST Lab Routine Well adult exam Colon cancer screening Ordered: 06/09/2022 [facility] Work Phone: Comment on above: Ordered: 06/09/2022 End: 08-27-2023 JACI SCREENING JACI SCREENING Radiology Routine Encounter for screening mammogram for breast cancer 1 Occurrences starting 07/28/2022 until 08/27/2023 [facility] Work Phone: Comment on above: 1 Occurrences starting 07/28/2022 until 08/27/2023 End: 08-18-2024 JACI SCREENING JACI SCREENING Radiology Routine Encounter for screening mammogram for breast cancer 1 Occurrences starting 07/20/2023 until 08/18/2024 [facility] Work Phone: Comment on above: 1 Occurrences starting 07/20/2023 until 08/18/2024 Measurement of respiratory function [facility] Work Phone: End: 12-13-2024 MG Breast Screening JACI SCREENING Radiology Routine Encounter for screening mammogram for breast cancer 1 Occurrences starting 11/14/2023 until 12/13/2024 [facility] Work Phone: Comment on above: 1 Occurrences starting 11/14/2023 until 12/13/2024 MG Breast Screening JACI SCREENIN G Radiology Routine Encounter for screening mammogram for breast cancer 12/22/2023 12:53 PM EDT [facility] Work Phone: Patient Education [facility] Work Phone: Patient referral [facility] Work Phone: End: 01-13-2024 [facility] Vascular Lab Routine Diminished pulses in lower extremity 1 Occurrences starting 01/12/2023 until 01/13/2024 [facility] Work Phone: Comment on above: 1 Occurrences starting 01/12/2023 until 01/13/2024 SWALLOW EVALUATION SWALLOW EVALU ATION Procedures Routine Dysphagia, unspecified type Ordered: 10/14/2021 [facility] Work Phone: Comment on above: Ordered: 10/14/2021 Urine culture [facility] Urine culture [facility] End: 10-26-2024 XR Shoulder - left 3 Views XR SHOULDER GENERAL 3V OR MORE AP/TRUE AP/OTHER LEFT Radiology Routine Chronic pain of both shoulders 1 Occurrences starting 09/27/2023 until 10/26/2024 [facility] Work Phone: Comment on above: 1 Occurrences starting 09/27/2023 until 10/26/2024 XR Shoulder - left 3 Views XR SHOULDER GENERAL 3V OR MORE AP/TRUE AP/OTHER LEFT Radiology Routine Chronic pain of both shoulders 11/11/2023 1:47 PM EDT [facility] Work Phone: End: 04-13-2026 XR Shoulder - left 3 Views XR SHOULDER GENERAL 3V OR MORE AP/TRUE AP/OTHER LEFT Radiology Routine Left shoulder pain, unspecified chronicity 1 Occurrences starting 03/14/2025 until 04/13/2026 [facility] Work Phone: Comment on above: 1 Occurrences starting 03/14/2025 until 04/13/2026 End: 10-26-2024 XR Shoulder - right 3 Views XR SHOULDER GENERAL 3V OR MORE AP/TRUE AP/OTHER RIGHT Radiology Routine Chronic pain of both shoulders 1 Occurrences starting 09/27/2023 until 10/26/2024 [facility] Work Phone: Comment on above: 1 Occurrences starting 09/27/2023 until 10/26/2024 XR Shoulder - right 3 Views XR SHOULDER GENERAL 3V OR MORE AP/TRUE AP/OTHER RIGHT Radiology Routine Chronic pain of both shoulders 11/11/2023 1:47 PM EDT [facility] Immunizations Immunization Date Immunization Notes Care Provider Nick corinne 12-25-2014 tetanus toxoid, redu nitin diphtheria toxoid, and acellular pertussis vaccine, adsorbed Dick Dodd MD Work Phone: [facility] Work Phone: 06-18-2014 influenza, seasonal, injectable Dick Dodd MD Work Phone: [facility] Work Phone: 07-18-[address] Homer Bradford Work Phone: [facility] 07-18-2011 influenza, seasonal, injectable, preservative free Homer Bradford MD Work Phone: [facility] 07-18-2011 pneumococcal polysaccharide vaccine, 23 valent Meagan Yusuf PA-C Work Phone: [facility] 07-18-[address] Esau Bradford Work Phone: [facility] Work Phone: 07-18-2011 pneumococcal vaccine , unspecified formulation [facility] Payers Date Payer Category Payer Self-pay [id number] 2017 [facility] MEDICAID [id number] 2017-Present [phone] [address] [place] [address] Medicaid [id number] 2017 Medicaid [id number] 2017 [facility] [id number] Unknown [id number] 2.16.840.1.736834.3.579.2.462 Unknown [id number] 2.16.840.1.888733.3.579.2.462 Unknown [id number] 2.16.840.1.652099.3.579.2.462 Unknown [id number] 2.16.840.1.592559.3.579.2.462 Unknown [id number] 2.16.840.1.766553.3.579.2.462 Unknown [id number] 2.16.840.1.499963.3.579.2.462 Unknown [id number] 2.16840.1.706616.3.579.2.462 Unknown [id number] 2.16.840.1.544459.3.579.2.462 Unknown [id number] 2.16.840.1.335133.3.579.2.462 Unknown [id number] 2.16.840.1.607975.3.579.2.462 Unknown [id number] 2.16.840.1.979029.3.579.2.462 Unknown [id number] 2.16.840.1.734340.3.579.2.462 Unknown [id number] 2.16.840.1.333629.3.579.2.462 Unknown [id number] 2.16.840.1.937538.3.579.2.462 Unknown [id number] 2.16.840.1.047602.3.579.2.462 Unknown [id number] 2.16.840.1.784228.3.579.2.462 Unknown [id number] 2.16.840.1.258398.3.579.2.462 Unknown [id number] 2.16.840.1.440728.3.579.2.462 Unknown [id number] 2.16.840.1.376950.3.579.2.462 Unknown [id number] 2.16.840.1.758555.3.579.2.462 Unknown [id number] 2.16.840.1.761421.3.579.2.462 Unknown [id number] 2.16.840.1.201337.3.579.2.462 Unknown [id number] 2.16.840.1.498810.3.579.2.462 Unknown [id number] 2.16.840.1.541468.3.579.2.462 Unknown [id number] 2.16.840.1.598343.3.579.2.462 Unknown [id number] 2.16.840.1.783640.3.579.2.462 Unknown [id number] 2.16.840.1.129356.3.579.2.462 Unknown [id number] 2.16.840.1.956261.3.579.2.462 Unknown [id number] 2.16.840.1.312581.3.579.2.462 Unknown [id number] 2.16.840.1.380704.3.579.2.462 Unknown [id number] 2.16.840.1.711679.3.579.2.462 Unknown [id number] 2.16.840.1.474366.3.579.2.462 Unknown [id number] 2.16.840.1.557681.3.579.2.462 Unknown [id number] 2.16.840.1.364158.3.579.2.462 Unknown [id number] 2.16.840.1.082792.3.579.2.462 Unknown [id number] 2.16.840.1.431446.3.579.2.462 Unknown [id number] 2.16.840.1.634503.3.579.2.462 Unknown [id number] 2.16.840.1.324662.3.579.2.462 Unknown [id number] 2.16.840.1.701660.3.579.2.462 Unknown [id number] 2.16.840.1.668616.3.579.2.462 Unknown [id number] 2.16.840.1.332238.3.579.2.462 Unknown [id number] 2.16.840.1.687852.3.579.2.462 Unknown [id number] 2.16.840.1.536150.3.579.2.462 Social History Date Type Detail Facility Start: 11-26-2016 End: 03-22-2024 Tobacco smoking status NMIS Smokes tobacco daily [facility] Start: 10-17-2015 History of tobacco use Cigarette Smoker [facility] Start: 11-26-2016 End: 03-05-2025 Cigarettes smoked current (pack per day) - Reported 1.5 [facility] Start: 11-26-2016 End: 03-22-2024 Tobacco use and exposure Smokeless tobacco non-user [facility] Start: 10-14-2021 End: 03-21-2025 Alcohol intake Current non-drinker of alcohol (finding) [facility] Start: 1960 Sex Assigned At Not on file [facility] Start: 10-21-2020 End: 06-09-2022 Exposure to SARS-CoV-2 (event) Not sure [facility] Work Phone: Start: 09-28-2021 End: 11-18-2023 Tobacco smoking status NMIS Unknown if ever smoked [facility] Start: 07-01-2020 None [facility] Start: 07-01-2020 With Family [facility] Start: 09-05-2020 Cigarettes [facility] Start: 1960 Sex Assigned At Female W [facility] Work Phone: Start: 02-05-2020 End: 04-30-2025 Tobacco smoking status Heavy tobacco smoker (finding) [facility] Mattpaulino Ely Start: 01-12-2023 Tobacco Comment 1.5 to 2 packs/day [facility] Start: 01-12-2023 End: 03-05-2025 Tobacco use panel [facility] Start: 06-18-2012 Adult Depression Screening Assessment 0 [facility] Start: 09-21-2024 End: 11-04-2024 Sex Female (finding) [facility] NEGATED: Highlighted row [facility] Medical Equipment Procedure Code Equipment Code Equipment Original Text Equipment Identifier Dates [id number], [id number], [id number] Start: 07-01-2015 End: 09-27-2023 Comment on above: [...] Assessment Result Facility 01-10-2025 Functional status Chair [facility] Work Phone: 11-07-2024 Functional status Chair;Bathroom Privileg e [facility] Work Phone: 09-21-2024 Functional status Ambulates [facility] Work Phone: 12-21-2021 Functional Status Independent Matt Jin coryasif [facility] [place] 09-07-2021 Functional status Patient Activity Chair [facility] Work Phone: 09-07-2021 Functional status With Assist of 2 [facility] Work Phone: 12-28-2014 Are you deaf, or do you have serious difficulty hearing No 12/28/2014 12:48 PM Tequila Lloyd LPN No [facility] 12-28-2014 Are you blind, or do you have serious difficulty seeing, even when wearing glasses No 12/28/2014 12:48 PM Tequila Lloyd LPN No [facility] 12-28-2014 Do you have serious difficulty walking or climbing stairs Yes 12/28/2014 12:48 PM EDTequila Mcgill LPN Yes [facility] 12-28-2014 Do you have difficul ty dressing or bathing No 12/28/2014 12:48 PM EDTequila Mcgill LPN No [facility] 12-28-2014 Because of a physica l, mental, or emotional condition, do you have difficulty doing errands alone such as visiting a physician's office or shopping No 12/28/2014 12:48 PM EDTqeuila Mcgill LPN No [facility] Mental Status Date Assessment Result Facility 04-30-2025 Cognitive function Level Of Cons ciousness Awake [facility] Work Phone: 01-11-2025 Cognitive function Voice/Name [facility] Work Phone: 01-08-2025 Cognitive function Touch/Shaking [facility] Work Phone: 11-07-2024 Cognitive function Voice/Name [facility] Work Phone: 11-04-2024 Cognitive function Level Of Cons ciousness Awake;Alert;Appropriate;Fol lows Commands [facility] Work Phone: 09-21-2024 Cognitive function Voice/Name [facility] Work Phone: 11-24-2023 Cognitive function Voice/Name [facility] Work Phone: 03-28-2023 Cognitive function Voice/Name [facility] Work Phone: 12-21-2021 Mental Status Orientation Oriented x 4 [facility] 09-07-2021 Cognitive function Voice/Name [facility] Work Phone: 12-28-2014 Because of a physica l, mental, or emotional condition, do you have serious difficulty concentrating, remembering, or making decisions No 12/28/2014 12:48 PM EDT Tequila Jarrell LPN No [facility] Clinical Notes 10-27-2016 to 05-28-2025 Note Date & Type Note Facility 05-28-2025 Note [facility] 05-27-2025 Note HNO ID: [id number] Author: CAROL ARMENTA MA Service: ? Author Type: Tool And Die Maker/Designer Type: Progress Notes Filed: 05/27/2025 14:28 Note Text: Scan on 05/27/2025 1:37 PM by ProviderGita PAMontyC: Miscellaneous Clinical Documents [facility] 05-27-2025 Note HNO ID: [id number] Author: JOSE JARRELL MA Service: ? Author Type: Tool And Die Maker/Designer Type: Progress Notes Filed: 05/29/2025 09:12 Note Text: Scan on 05/25/2025 12:10 AM by ProviderGita PA-C: [facility] ED Scan on 05/24/2025 11:02 PM by ProviderGita PAMontyC: [facility], Hospitalist Scan on 05/28/2025 5:10 PM by ProviderGita PA-C: [facility] Discharge summary [facility] 05-24-2025 Note HNO ID: [id number] Author: HOMER BRADFORD MD Service: ? Author Type: Physician Type: Progress Notes Filed: 05/24/2025 16:36 Note Text: Chief Complaint Patient presents with: Well Adult HPI Pernell Rodriguez is a 65 year old female who presents here today for a Physical. Patient with complex past medical hx as well as those reviewed and addressed below in ROS. Currently resides in Homeless longterm. Patient in office today and states that [...] is becoming much worse. She asked her Plater Helper for refills of her Nebulizer solution, but [...] pneumonia at an urgent care clinic near [facility] and was prescribed a blue antibiotic, possibly doxycycline. She took one dose, which caused nausea and vomiting, and she did not complete the course. She was subsequently evaluated at [facility], where pneumonia was ruled out and [...] reports challenges with medication adherence due to longterm rules requiring her to be outside from [...] Chest pain 02/14/[address] Jacob in [facility]. Had a normal cardiac CTA in 2009 with no calcium. Chronic back pain greater than 3 months duration 04/02/2015 Chronic insomnia 03/12/2020 Ilya Calderón ([facility]) on melatonin. 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 Calderón Mixed hyperlipidemia 01/14/2014 Mixed incontinence urge and stress (male)(female) 07/25/2018 Morbid obesity due to excess calories ([facility]) 10/27/2016 Muscle weakness (generalized) 07/25/2018 [...] chronic kidney disea (more content not included)... [facility] [facility] 05[facility] Note HNO ID: [id number] Author: JOSE JARRELL MA Service: ? Author Type: Tool And Die Maker/Designer Type: Progress Notes Filed: 05/01/2025 08:20 Note Text: Scan on 04/30/2025 9:35 PM by Provider, External, PA-C: [facility] ED [facility] 04-30-2025 Discharge summary [facility] 04-30-2025 Radiology Diagnostic study note [facility] Imaging Services [address] [place] [address] Chest PA and Lateral MR#: [id number] Acct: [id number] Name: PERNELL RODRIGUEZ CHEKO Rep #: [id number] : 1960 F 65 From: Nolberto Mcmanus MD PCP: Dr. Homer Bradford MD Status: REG ER Study:Chest PA and Lateral Date of Exam: 04/30/25 Exam# [id number] Ordering Dr: Lianne Pinto MD PROCEDURE: CHEST [...] effusion/atelectasis. Underlying consolidation not excluded. Reading Location: [id number] CC: Dr. Ortiz Pinto MD; Dr. Homer Bradford MD ~ 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: Signed [facility] 04-30-2025 Discharge summary Note Date/Time April 30, 2025 9:19pm [facility] Medical Records Department [address] [place] [address] Emergency Department Summary 04/30/25 MR#: [id number] Acct: [id number] Name: PERNELL RODRIGUEZ CHEKO Rep #:[id number] : 1960 65 From: Ortiz Pinto [...] nebulizer but reports limited use due to longterm restrictions. - Has a maintenance inhaler with a red top but lacks a rescue inhaler. - Reports increased wheezing and frequent coughing. - Currently residing in a homeless longterm. [facility] Medical History Urinary tract infection Overactive [...] Std Deviation 50.4 H RDW Coeff of Orbert 14.4 Plt Count 275 MPV 10.3 Immature Gran % (Auto) 0.100 Neut % (Auto) 55.4 Lymph % (Auto) 31.2 [place] % (Auto) 8.0 Eos % (Auto) 5.1 [...] effusion/atelectasis. Underlying consolidation not excluded. Reading Location: [facility] [place] Rhythm Strip Rhythm Strip: Sinus Rhythm Rate: [...] with access to your nebulizer. Print Language: French Disposition Disposition: Home, Self Care What to do if you have Problems For any increased pain, shortness of breath, bleeding, nausea or vomiting, chestpain, or any unexpected problems, contact your Primary Care Provider. Call [facility] ([phone]) or report to the closest Emergency Room. Call 911 if necessary. 04/30/252118 <Electronically signed by Ortiz Pinto MD> Cosigner Signature (if applicable): CC: Dr. Homer Bradford MD ~ Signed [facility] Work Phone: 1(918) 437-422209-18-2025 NoteHNO ID: [id number] Author: ORTIZ MASSEY MD Service: ? Author Type: Physician Type: Progress Notes Filed: 04/05/2025 11:29 Note Text: Ortiz Massey MD Department of Orthopaedics Orthopaedics [address] [facility] [address] Dept: [phone] Dept April 04, 2025 CHIEF COMPLAINT: New [...] complication, without long-term current use of insulin ([facility]) 1. Adhesive capsulitis of left [...] and further assess adhesive capsulitis; explained that [employer] insurance may require additional physical therapy sessions [...] - Musculoskeletal: - Lef (more content not included)...[facility]09-11-2025 Telephone encounter Note* Telephone Encounter - Homer Bradford MD - 03/28/2025 2:57 PM EDT The following approved medication requests have been transmitted electronically. Requested Prescriptions Signed Prescriptions Disp Refills lidocaine (LIDODERM) 5 % 10 patch 0 Sig: Apply 1 patch as directed once daily. REMOVE AFTER 12 HOURS. Authorizing Provider: HOMER BRADFORD MD [facility]09-11-2025 Miscellaneous Notes* Telephone Encounter - Homer Bradford [...] and phone number phone number of a contact center agent at the [facility] so that we may contact them. Pt looked forit and states she can't find it, but will call back with that information and give to nurse. Pt asking if pcp can send her an Rx for lidocaine patch to [facility]. Reports she needs an Rx in [...] us the name and number of a contact center agent at the [facility]. Then let them know know they need to fax a letter with what they want and a signed release of medical information by Pernell or else it's a HIPA violation. * Telephone Encounter - Erwin Harvey RN - 03/27/2025 2:19 PM EDT Pt reports she picked up the letter in Medical Records and now the [facility] wants a letter from pcp stating all of patient's diagnoses and the names of all the doctors who treat her. Pt would like pcp office to fax this letter to [facility]. Pt will call back with fax number. documented in this encounterReg[facility]09-11-2025 Telephone encounter Note * Telephone Encounter - Erwin Harvey RN - 03/28/2025 2:15 PM EDT Patient phoned and informed pt doctor would like to have the name and phone number phone number of a contact center agent at the [facility] so that we may contact them. Pt looked forit and states she can't find it, but will call back with that information and give to nurse. Pt asking if pcp can send her an Rx for lidocaine patch to [facility]. Reports she needs an Rx in order for insurance to cover it. States her shoulder hurts and she is not scheduled with ortho until 04/04/25. [facility]09-11-2025 Telephone encounter Note* Telephone Encounter - Jose [...] is asking for, thanks. Jose Jarrell MA [facility]09-11-2025 Telephone encounter Note* Telephone Encounter - Homer Bradford MD - 03/28/2025 8:18 AM EDT See if Pernell can give us the name and number of a contact center agent at the [facility]. Then let them know know they need to fax a letter with what they want and a signed release of medical information by Pernell or else it's a HIPA violation. [facility]09-10-2025 Telephone encounter Note* Telephone Encounter - Erwin Harvey RN - 03/27/2025 2:19 PM EDT Pt reports she picked up the letter in Medical Records and now the [facility] wants a letter from pcp stating all of patient's diagnoses and the names of all the doctors who treat her. Pt would like pcp office to fax this letter to [facility]. Pt will call back with fax number. [facility]09-09-2025 Telephone encounter Note* Telephone Encounter - Umm [...] York RN March 26, 2025 1:38 PM [facility]09-09-2025 Miscellaneous Notes* Telephone Encounter - Umm York [...] 26, 2025 1:38 PM documented in this encounterRegency Hospital [facility]09-08-2025 Telephone encounter Note * Telephone Encounter - Jose Jarrell MA - 03/25/2025 4:18 PM EDT Call to pt and notified her letter is ready for bead picker at [facility]. Pt will be her tomorrow to bead picker. Jose Jarrell MA [facility]09-08-2025 Miscellaneous Notes* Telephone Encounter - Jose Jarrell MA - 03/25/2025 4:18 PM EDT Call to pt and notified her letter is ready for bead picker at [facility]. Pt will be her tomorrow to bead picker. Jose Jarrell MA * Telephone Encounter - Homer Bradford MD - 03/25/2025 4:10 PM EDT Let patient know letter ready for bead picker. * Telephone Encounter - Mary Ann Rodriguez LPN - 03/25/2025 10:14 AM EDT Patient calling back said assisted living is called [facility]. * Telephone Encounter - Mary Ann Rodriguez LPN - 03/25/2025 9:25 AM EDT Patient calling asking for a letter from PCP saying [facility] Patient [place] [address] [facility] area, did not know the name. Please call patient when ready for bead picker. Please advise documented in this encounterRegency Hospital [facility]09-08-2025 Telephone encounter Note * Telephone Encounter - Homer Bradford MD - 03/25/2025 4:10 PM EDT Let patient know letter ready for bead picker. [facility]09-08-2025 Telephone encounter Note* Telephone Encounter - Mary Ann Rodriguez LPN - 03/25/2025 10:14 AM EDT Patient calling back said assisted living is called [facility]. [facility]09-08-2025 Telephone encounter Note* Telephone Encounter - Mary Ann Rodriguez LPN - 03/25/2025 9:25 AM EDT Patient calling asking for a letter from PCP saying he agrees would be good idea for [facility]. Patient said [place] [address] [facility] area, did not know the name. Please call patient when ready for bead picker. Please advise [facility]09-04-2025 NoteHNO ID: [id number] Author: ALIZE WILCOX OD Service: ? Author Type: Assembler Watch Train Type: Progress Notes Filed: 03/21/2025 14:56 Note Text: 1. Type 2 diabetes mellitus without retinopathy (HCC) (Primary) HbA1c reviewed Educated patient to continue care and current treatment regimen with primary care doctor and/or security officers and guards to maintain optimum levels as they are [...] Alize Wilcox, OD March 21, 2025 2:[facility] History of Present illness Narrative* Alize Wilcox, OD - 03/21/2025 2:54 PM EDT 1. Type 2 diabetes mellitus without retinopathy (HCC) (Primary) HbA1c reviewed Educated patient to continue care and current treatment regimen with primary care doctor and/or security officers and guards to maintain optimum levels as they are [...] 21, 2025 2:54 PM documented in this encounterRegency Hospital [facility]09-02-2025 Telephone encounter Note * Telephone Encounter - Zoila Sage MSW - 03/19/2025 9:56 AM EDT Aaron received message from patient asking about name of worker from [employer] that was helpingpatient with housing assistance. Sw called patient back and left message with Elsie Green name and noted that she is the Senior Harness Cutter for [facility]. Sw also left number for [facility] ph. [phone]. [facility]09-02-2025 Miscellaneous Notes* Telephone Encounter - Zoila Sage MSW - 03/19/2025 9:56 AM EDT Aaron received message from patient asking about name of worker from [facility] [employer] that was helpingpatient with housing assistance. Sw called patient back and left message with Elsie Green name and noted that she is the Senior Harness Cutter for [facility]. Sw also left number for [facility] ph. [phone]. documented in this encounterRegency Hospital [facility]08-27-2025 Telephone encounter Note * Telephone Encounter - Zoila Sage MSW - 03/13/2025 10:01 AM EDT Aaron left patient message to return call to check in with patient regarding housing assistance needs. [facility]08-27-2025 Miscellaneous Notes* Telephone Encounter - Zoila Sage [...] to say to patient. documented in this encounterRegency Hospital [facility]08-20-2025 Telephone encounter Note * Telephone Encounter - Zoila Sage MSW - 03/06/2025 10:31 AM EDT Patient spoke with Aaron and told her that she has not yet called [employer]. Patient states that she will call them now and see what type of help they can provide through Medicaid Waiver for housing support. [facility]08-19-2025 Telephone encounter Note* Telephone Encounter - Zoila Sage MSW - 03/05/2025 3:41 PM EDT Patient and Sw spoke regarding [employer] and patient is going to give them a call to see what type of housing resource help they may offer. Sw will check back in with patient tomorrow and see what [employer] had to say to patient. [facility]08-19-2025 Miscellaneous Notes* Telephone Encounter - Zoila Sage [...] Sw back to discuss. documented in this encounterRegency Hospital [facility]08-19-2025 Telephone encounter Note * Telephone Encounter - Zoila Sage MSW - 03/05/2025 12:00 PM EDT Aaron spoke with Jimy Zimmerman, Senior Outreach. Elsie reports that she will call patient this afternoon to discuss housing needs. [facility]08-18-2025 Telephone encounter Note* Telephone Encounter - Zoila [...] that she call Sw back to discuss. [facility]08-16-2025 Telephone encounter Note* Telephone Encounter - Homer [...] with cardio Authorizing Provider: HOMER BRADFORD MD [facility]08-16-2025 Miscellaneous Notes* Telephone Encounter - Homer Bradford [...] 01, 2025 3:36 PM documented in this encounterRegency Hospital [facility] West08-15-2025 Telephone encounter Note * Telephone Encounter - [...] Monreal RN March 01, 2025 3:36 PM [facility]08-07-2025 NoteHNO ID: [id number] Author: HOMER BRADFORD MD Service: ? Author [...] She is under the care of a programming specialist, who removed the scab, but she missed a recent appointment due to transportation issues. She also reports a history of a sore on the front of her leg, which was deemed perfect by her programming specialist. She denies recent fevers or chills. [...] and has an upcoming appointment with her vocational rehabilitation specialist, Dr. Christopher, on the . She is also trying to get more exercise and uses a roller walker for mobility. She is actively seeking housing and is in contact with the Foodist, although she reports difficulties with the new software development project manager. She is currently staying with a [...] Chest pain 02/14/[address] Jacob in [facility]. Had a normal cardiac CTA in 2009 with no calcium. Chronic back pain greater than 3 months duration 04/02/2015 Chronic insomnia 03/12/2020 Ilya Calderón ([facility]) on melatonin. Chronic obstructive pulmonary disease ([facility]) 04/25/2015 Chronic pain 01/14/2014 Constipation 02/12/2014 Dyer or callus 11/16/2015 Current use of proton pump inhibitor 10/11/2017 CVA (cerebral infarction) 01/14/2014 Diabetic eye exam ([facility]) 01/14/[address] Sanchez last done 03/02/2019 Diabetic foot ([facility]) 01/14/[address] Martins Extrapyramidal [...] 04/16/2014 Major depressive disorder, recurrent episode, moderate ([facility]) 04/25/2015 On disability Migraine without aura and without status migrainosus, not intractable 04/28/[address] Calderón Mixed hyperlipidemia 01/14/2014 Mixed incontinence urge and stress (male)(female) 07/25/2018 Morbid obesity due to excess calories ([facility]) 10/27/2016 Muscle weakness (generalize (more content not included)...[facility]07-17-2025 History and physical note Author Vijay Love [facility] Note Date/Time January 31, 2025 12:1 3pm [facility] [address] [place] [address] H&P Exam - Wound Care 01/31/25 1152 MR#: [id number] Acct: [id number] Name: PERNELL RODRIGUEZ Rep #:[id number] : 1960 65 From: Vijay Arthur [...] of cigarettes per day for 50 years. [facility] Medical History Decubitus ulcer of buttock, stage [...] Recorded Date Recorded By Document 01/29/25 10:17 [id number] 01/29/25 10:25 01/29/25 10:17 - Today's Visit [...] Date Recorded By Document 01/29/25 10:17 KW [id number] 01/29/25 10:25 KW 01/29/25 10:17 Wound Center [...] Date Recorded By Document 01/29/25 10:45 DS [id number] 01/29/25 10:48 DS 01/29/25 10:45 Wound Center [...] Date Recorded By Document 01/29/25 11:02 MELLISA [id number] 01/29/25 11:02 MELLISA 01/29/25 11:02 Wound Care [...] Charges/Coding Visit Charges Office Visits / Consults: 10728 OV L4 New 45min Assessment/Plan Assessment/Plan (1) [...] Cosigner Signature (if applicable): CC: ~ Signed [facility] Work Phone: 1(210) 432-315007-17-2025 Progress note Author Taylor [facility] Services Note Date/Time January 31, 2025 1:25 pm [facility] [address] [place] [address] OFFICE VISIT Date of Service: 01/31/25 MR#: [id number] Acct: [id number] Name: PERNELL RODRIGUEZ Rep #: [id number] : 1960 Provider: GYA Julian Age/Sex: 65/F [facility] Status: Signed Assessment and Plan Assessment [...] with a friend but using multiple social services specialist to find housing. She was evicted [...] Additional Comments: This note was generated with [employer] dictation software. It may contain incorrectwords, spelling, and punctuation that were not noted in checking the note beforesigning. Follow Up: 3 Months HPI Hospital FU Chief Complaint: Hospital follow-up HPI Comments Details: This patient presents to the office today for hospital follow-up. She is ambulatory and on room air. She was hospitalized at [facility] from January 08 through January 11, 2025 [...] Reasons: Hospital FU Chief Complaint: est annual Fire Systems Inspector Required: No DME Vendor: N/a Accompanied by: [...] the past year?: Yes PFSH Medical History Decubitus ulcer of buttock, stage [...] of back problems Asthma Arthritis Surgical History Hx of surgical procedure History of carpal tunnel surgery History of elbow surgery H/O shoulder surgery H/O hand surgery H/O dilation and curettage Hx of cholecystectomy History of tonsillectomy Family History Grandmother Cancer stomach Father Cancer lung Sister Breast cancer Social History household members: other details: Living [...] 1325 <Electronically signed by Taylor hassan NP PAPER STRIPPER-C> Date _ Taylor Julian NP PAPER STRIPPER-C Cosigner Signature: Date (if applicable) CC: Dr. Homer Bradford MD ~ [employer] Work Phone: 1(614) 614-587707-16-2025 Telephone encounter Note* Telephone Encounter - Aspen Bell LPN - 01/30/2025 12:56 PM EDT Pt notified rx's refilled to get her to her Cardiology appointment and then needs to get refills from Software Engineering Specialist. Pt verbalizes understanding. Aspen Bell LPN [facility]07-16-2025 Miscellaneous Notes* Telephone Encounter - Aspen Bell LPN - 01/30/2025 12:56 PM EDT Pt notified rx's refilled to get her to her Cardiology appointment and then needs to get refills from Software Engineering Specialist. Pt verbalizes understanding. Aspen Bell LPN * [...] EDT Does she have appt with her operations expert scheduled yet. * Telephone Encounter - Priyanka [...] cardio Priyanka Chavez RN documented in this encounterRegency Hospital [facility] West07-16-2025 Telephone encounter Note * Telephone Encounter - [...] with cardio Authorizing Provider: MEAGAN YUSUF PA-C [facility]07-16-2025 Telephone encounter Note* Telephone Encounter - Aspen Bell LPN - 01/30/2025 12:02 PM EDT Spoke with pt. States she has one scheduled in Feb. Believes it's the 3rd or 7th. Advised pt would contact her to let her know if refills have been sent in for her. Aspen Bell LPN [facility]07-16-2025 Telephone encounter Note* Telephone Encounter - Meagan Yusuf PA-C - 01/30/2025 8:13 AM EDT Does she have appt with her operations expert scheduled yet. [facility]07-15-2025 Telephone encounter Note* Telephone Encounter - Priyanka [...] her appt with cardio Priyanka Chavez RN [facility]07-15-2025 Telephone encounter Note* Telephone Encounter - Aspen Bell LPN - 2025 3:07 PM EDT Pt notified of same with verbalized understanding. Aspen Bell LPN [facility]07-15-2025 Miscellaneous Notes* Telephone Encounter - Aspen Bell [...] scheduled? Meagan Yusuf PA-C documented in this encounterRegency Hospital [facility] West07-15-2025 Evaluation note* Diagnosis Onset Date Resolution Status [...] tract infection acute A ugust 2024 11:16am [facility] Work Phone: [phone]) 699-144307-14-2025 Telephone encounter Note* Telephone Encounter - Meagan Yusuf PA-C - 01/28/2025 11:09 AM EDT Noted. She should schedule once able unless she wants to see someone else. [facility]07-14-2025 Telephone encounter Note* Telephone Encounter - Umm York RN - 01/28/2025 9:47 AM EDT Patient notified of results and provider's instructions. Patient verbalizes understanding. Patient has been trying to get a hold of Dr. Alba's office. They are not scheduling until 02/15 due to office remodel. Umm York RN [facility]07-14-2025 Telephone encounter Note* Telephone Encounter - Aspen Bell LPN - 01/28/2025 9:42 AM EDT Attempted to contact pt. No answer and vm is not set up. Will need to keep trying to contact pt. Also sent pt a MC message to contact office. Aspen Bell LPN [facility]07-14-2025 Telephone encounter Note* Telephone Encounter - Meagan Yusuf PA-C - 01/28/2025 8:56 AM EDT Urine culture is negative. She needs to see urology. This is a consult Dr. Bradford placed in December for Dr. Alba. Did she get scheduled? Meagan Yusuf PA-C [facility]07-11-2025 NoteHNO ID: [id number] Author: MEAGAN YUSUF PA-C Service: ? Author Type: Physician Small Products Assembler Type: Progress Notes Filed: 01/25/2025 11:00 Note [...] Chest pain 02/14/[address] Jacob in [facility]. Had a normal cardiac CTA in 2009 with no calcium. Chronic back pain greater than 3 months duration 04/02/2015 Chronic insomnia 03/12/2020 Ilya Calderón ([facility]) on melatonin. Chronic obstructive pulmonary disease (HCC) 04/25/2015 Chronic pain 01/14/2014 Constipation 02/12/2014 Dyer or callus 11/16/2015 Current use of proton pump inhibitor 10/11/2017 CVA (cerebral infarction) 01/14/2014 Diabetic eye exam (HCC) 01/14/[address] Sanchez last done 03/02/2019 Diabetic foot ([facility]) 01/14/[address] Martins Extrapyramidal [...] 04/16/2014 Major depressive disorder, recurrent episode, moderate ([facility]) 04/25/2015 On disability Migraine without aura and without status migrainosus, not intractable 04/28/[address] Calderón Mixed hyperlipidemia 01/14/2014 Mixed incontinence urge and stress (male)(female) 07/25/2018 Morbid obesity due to excess calories ([facility]) 10/27/2016 Muscle weakness (generalized) 07/25/2018 [...] 04/25/2015 Type 2 diabetes mellitus without complication ([facility]) 04/25/2015 Urinary incontinence 07/08/2017 Well adult exam 10/27/2016 last done: 06/09/2022 Previous Surgical History PAST SURGICAL HISTORY Procedure Laterality Date *STRESS TEST PC 05/06/2016 WNL 2D ECHO (EXEP) 01/14/2014 EF=65% Trival NV, TI, PI, LA enlarged. CARPAL TUNNEL Bilateral [...] [Thioridaz* GI Upset Pneumova (more content not included)...[facility]07-11-2025 History of Present illness Narrative* Meagan [...] Chest pain 02/14/[address] Jacob in [facility]. Had a normal cardiac CTA in 2009 with no calcium. Chronic back pain greater than 3 months duration 04/02/2015 Chronic insomnia 03/12/2020 Ilya Calderón ([facility]) on melatonin. Chronic obstructive pulmonary disease (HCC) 04/25/2015 Chronic pain 01/14/2014 Constipation 02/12/2014 Dyer or callus 11/16/2015 Current use of proton pump inhibitor 10/11/2017 CVA (cerebral infarction) 01/14/2014 Diabetic eye exam ([facility]) 01/14/[address] Sanchez last done 03/02/2019 Diabetic foot ([facility]) 01/14/[address] Martins Extrapyramidal [...] 04/16/2014 Major depressive disorder, recurrent episode, moderate ([facility]) 04/25/2015 On disability Migraine without aura and without status migrainosus, not intractable 04/28/[address] Calderón Mixed hyperlipidemia 01/14/2014 Mixed incontinence urge and stress (male)(female) 07/25/2018 Morbid obesity due to excess calories ([facility]) 10/27/2016 Muscle weakness (generalized) 07/25/2018 [...] WNL 2D ECHO (EXEP) 01/14/2014 EF=65% Trival NV, TI, PI, LA enlarged. CARPAL TUNNEL Bilateral 08/28 and 09/25 COLONOSCOPY FLX DX W/COLLJ SPEC WHEN PFRMD 2011 [facility] Colonoscopy, no polyps repeat 10 yrs [...] - Initiated antibiotic therapy; prescription sent to [facility]. - Will reassess based on urine culture results. 3. Pressure injury of sacral region, stage 2 (HCC) (L89.152) - Exam reveals a crusted lesion with surrounding erythema and tenderness. - Initiated topical antibiotic ointment; prescription sent to [facility]. - Monitor for signs of infection and promote healing. Meagan Yusuf PA-C Recording using Transaction[employer] software for draft documentation of the visit was discussed with the patient/authorized healthcare sales representative; all questions welcomed and answered. Patient/authorized healthcare sales representative agreed to proceed documented in this encounterReg[facility] Telephone encounter Note * Telephone Encounter - Aspen Bell LPN - 01/25/2025 10:07 AM EDT Pt notified of message at ov 01/25/25. Aspen Bell LPN [facility]07-11-2025 Miscellaneous Notes* Telephone Encounter - Aspen Bell [...] need to call back. Caterina Salazar RN * Telephone Encounter - Homer Bradford MD - 01/21/2025 4:40 PM EDT This script was given 12/18/2024 with one refill which would get her till early February. Patient was informed this was a one time script till she got in to see Cardio and needs to do so. [facility] should [facility] [employer] can help with this. * Telephone Encounter [...] 21, 2025 11:48 AM documented in this encounterRegency Hospital [facility]07-08-2025 Telephone encounter Note * Telephone Encounter - Aspen Bell LPN - 01/22/2025 1:46 PM EDT Attempted to contact pt. No answer and vm has not been set up. MC was logged into on 12/18/24. Sent pt a MC msg to contact office. Aspen Bell LPN [facility]07-08-2025 NotePatient Outreach (FAMPWS) PERNELL RODRIGUEZ ([id number]) 1960 F Date Time Provider Department 01/22/25 [...] breast cancer [Z12.31] Order(s):JACI SCREENING W YOHANNES [[id number]] Order #: [id number] FUTURE Prescriptions as of 02/22/2025 - aspirin, [...] 04/25/2015 Major depressive disorder, recurrent episode, m*04/25/2015 Dyer or callus [L84] 11/16/2015 Nodule of left lung [R91.1] 12/17/2015 Well adult exam [Z00.00] 10/27/2016 Colon cancer screening [Z12.11] 10/27/2016 Migraine without aura and without status migrai*04/28/2017 Irritable bowel syndrome with both constipation*04/28/2017 Urinary incontinence [R32] 07/08/2017 11/28/2021 Incontinence of feces [R15.9] 07/08/2017 Encounter for gynecological examination without*05/23/2018 Mu (more content not included)...[facility]07-07-2025 Telephone encounter Note* Telephone Encounter - Caterina Salazar RN - 01/21/2025 7:56 PM EDT Called Pt and no answer. Pt did not have voicemail set up. Will need to call back. Caterina Salazar RN [facility]07-07-2025 Telephone encounter Note* Telephone Encounter - Homer Bradford MD - 01/21/2025 4:40 PM EDT This script was given 12/18/2024 with one refill which would get her till early February. Patient was informed this was a one time script till she got in to see Cardio and needs to do so. She should see if the [employer] can help with this. [facility]07-07-2025 Telephone encounter Note* Telephone Encounter - Mayr Ann Rodriguez LPN - 01/21/2025 2:11 PM EDT Patient returned call and went over results, notes from Meagan MAY with understanding. [facility]07-07-2025 Miscellaneous Notes* Telephone Encounter - Mary Ann [...] okay/stable. Meagan Yusuf PA-C documented in this encounterRegency Hospital [facility]07-07-2025 Telephone encounter Note * Telephone Encounter - [...] Hannah Bravo January 21, 2025 11:48 AM [facility] Work Phone: [phone]) 191-427007-07-2025 Telephone encounter Note* Telephone Encounter - Jose Jarrell MA - 01/21/2025 11:46 AM EDT Attempted to reach pt but was unable to LM due to VM not being setup yet. Will try calling again later. Jose Jarrell MA [facility]07-07-2025 Telephone encounter Note* Telephone Encounter - Meagan Yusuf PA-C - 01/21/2025 11:16 AM EDT Let patient know that her labs are okay/stable. Meagan Yusuf PA-C [facility]07-03-2025 NoteHNO ID: [id number] Author: MEAGAN YUSUF PA-C Service: ? Author Type: Physician Small Products Assembler Type: Progress Notes Filed: 01/17/2025 12:02 Note [...] with a friend but will move to [employer] around the or . - Lost test case developer through [facility]; no current test case developer. 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 Past medical history, appointments, medications, allergies reviewed. Previous Medical History PAST MEDICAL HISTORY Diagnosis Date ASHD (arteriosclerotic heart disease) 10/25/[address] Goins Bilateral leg edema 04/25/2015 Bipolar affective disorder (HCC) 04/25/[address] Colindres Chest pain 02/14/[address] Jacob in [facility]. Had a normal cardiac CTA in 2009 with no calcium. Chronic back pain greater than 3 months duration 04/02/2015 Chronic insomnia 03/12/2020 Ilya Calderón ([facility]) on melatonin. Chronic obstructive pulmonary disease (HCC) 04/25/2015 Chronic pain 01/14/2014 Constipation 02/12/2014 Dyer or callus 11/16/2015 Current use of proton pump inhibitor 10/11/2017 CVA (cerebral infarction) 01/14/2014 Diabetic eye exam ([facility]) 01/14/[address] Sanchez last done 03/02/2019 Diabetic foot ([facility]) 01/14/[address] Martins Extrapyramidal [...] WNL 2D ECHO (EXEP) 01/14/2014 EF=65% Trival NV, TI, PI, LA enlarged. CARPAL TUNNEL Bilateral 08/28 and 09/25 COLONOSCOPY FLX DX W/COLLJ SPEC WHEN PFRMD 2011 [facility] Colonoscopy, no polyps repeat 10 yrs CRYOCAUTERY OF CERVIX or twice DILATION AND CURETTA (more content not included)...[facility] 01-17-2025 History of Present illness Narrative* Meagan Yusuf PA-C - 01/17/2025 11:26 AM EDT Chief Complaint Patient presents with: Hospital F/U [facility] Pernell Rodriguez is a 64 [...] with a friend but will move to [employer] around the or . - Lost test case developer through [facility]; no current test case developer. 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 Past medical history, appointments, medications, allergies reviewed. Previous Medical History PAST MEDICAL HISTORY Diagnosis Date ASHD (arteriosclerotic heart disease) 10/25/[address] Goins Bilateral leg edema 04/25/2015 Bipolar affective disorder (HCC) 04/25/[address] Colindres Chest pain 02/14/[address] Jacob in [facility]. Had a normal cardiac CTA in 2009 with no calcium. Chronic back pain greater than 3 months duration 04/02/2015 Chronic insomnia 03/12/2020 Ilya Calderón ([facility]) on melatonin. 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 Calderón Mixed hyperlipidemia 01/14/2014 Mixed incontinence urge and stress (male)(female) 07/25/2018 Morbid obesity due to excess calories ([facility]) 10/27/2016 Muscle weakness (generalized) 07/25/2018 [...] WNL 2D ECHO (EXEP) 01/14/2014 EF=65% Trival NV, TI, PI, LA enlarged. CARPAL TUNNEL Bilateral [...] (arteriosclerotic heart disease) (I25.10) - Follow-up with operations expert Dr. Goins is pending; patient has been unable to reach the office. - Provided patient with the operations expert's office phone number. 3. Chronic obstructive pulmonary disease, unspecified COPD type (HCC) (J44.9) - Discussed issues with current nebulizer setup; patient prefers a nebulizer with a mask. - Will coordinate with respiratory therapy to provide appropriate nebulizer equipment. 4. Wound of left lower extremity, subsequent encounter (S86.607Q) - Noted wound on the left lower [...] and ensure continued improvement. - Follow-up with road advisor Dr. Diaz is pending; patient to complete blood tests prior to the appointment. 7. Paroxysmal atrial fibrillation (HCC) (I48.0) - No specific details discussed during the visit. 8. Mixed hyperlipidemia (E78.2) - No specific details discussed during the visit. Meagan Yusuf PA-C I spent a total of 33 minutes on the date of the service which included preparing to see the patient, [id number] patient care, completing clinical documentation, obtaining and/or reviewing separately obtained history, performing a medically appropriate examination, counseling and educating the pat ient/family/caregiver, ordering medications, tests, or procedures, and communicating results to thepatient/family/caregiver. Recording using TransactionTree software for draft documentation of the visit was discussed with the patient/authorized healthcare sales representative; all questions welcomed and answered. Patient/authorized healthcare sales representative agreed to proceed documented in this encounterReg[facility]06-27-2025 Telephone encounter Note * Telephone Encounter - Jose Jarrell MA - 01/11/2025 3:53 PM EDT Provider signed and faxed back to number below. Jose Jarrell MA [facility]06-27-2025 Miscellaneous Notes* Telephone Encounter - Jose Jarrell MA - 01/11/2025 3:53 PM EDT Provider signed and faxed back to number below. Jose Jarrell MA * Telephone Encounter - Jose Jarrell MA - 01/11/2025 3:46 PM EDT Type of form: Medical Necessity - received from Home [facility] Delivery Form received via fax When form is completed, Fax form to [phone] Form has been forwarded to Physician Desk: Dr. Sanchez Jarrell MA documented in this encounterRegency [facility]06-27-2025 Telephone encounter Note * Telephone Encounter - Jose Jarrell MA - 01/11/2025 3:46 PM EDT Type of form: Medical Necessity - received from Home Care Delivery Form received via fax When form is completed, Fax form to [phone] Form has been forwarded to Physician Desk: Dr. Sanchez Jarrell MA [facility]06-27-2025 Discharge summary Author Peter Herbert [facility] Note Date/Time January 11, 2025 12:0 5pm [facility] Medical Records Department [address] [place] [address] Instructions for Home/Discharge Instructions 01/11/25 1016 MR#: [id number] Acct: [id number] Name: PERNELL RODRIGUEZ CHEKO Rep #:[id number] : 1960 64 From: Peter Arthur [...] [Non-Staff] - 02/26/25 12:00 pm (Provide A Ride([phone]) will pick you up at 11-11:30, and [...] Vela MD; Dr. Homer Bradford MD~ Signed [facility] Work Phone: 1(691) 518-404106-27-2025 [facility]06-26-2025 Progress note Author Peter Herbert [facility] Note Date/Time January 10, 2025 8:31 am [facility] Medical Records Department [address] [place] [address] Progress Note - Hospitalist 01/10/25 0731 MR#: [id number] Acct: [id number] Name: PERNELL RODRIGUEZ Rep #:[id number] : 1960 64 From: Peter Arthur [...] Small nonobstructive bilateral intrarenal calculi. Reading Location: [facility] Physical Exam Narrative Seen and examined. Patient [...] is a 64-year-old female who [facility] ED on 01/08/2025 with altered mentation. 1. Sepsis suspected secondary to UTI ? Commercial Designer following. Met sepsis criteria on admit with [...] reportedly been staying with a friend in [place] recently and has been applying for housing. [...] code, verified Charges/Coding Visit Charges Inpatient E&M: 32212 Subs Hosp L2 01/10/25 08 <Electronically signed by Peter Herbert MD> Cosigner Signature (if applicable): CC: ~ Signed ADDENDUM by Dr. Peter Herbert MD on 01/10/25 at 0831 Addendum Small wound in the left leg. Venous duplex ordered. Wound nurse consulted 01/10/25830<Electronically signed by Peter Herbert MD> Cosigner Signature (if applicable): cc: ~* Signed [facility] Work Phone: 1(311) 425-897506-26-2025 Progress note Author Dallin Christopher [facility] Note Date/Time January 10, 2025 8:16 am [facility] Medical Records Department [address] [place] [address] Progress Note - Commercial Designer 01/10/25 0809 MR#: [id number] Acct: [id number] Name: PERNELL RODRIGUEZ CHEKO Rep #:[id number] : 1960 64 From: Dallin Christopher [...] as tolerated. This note was generated with [employer] dictation software. It may contain incorrectwords, spelling, [...] Small nonobstructive bilateral intrarenal calculi. Reading Location: [facility] Physical Exam Const alert, oriented x3 and [...] affect normal Charges/Coding Visit Charges Inpatient E&M: 23684 Subs Hosp L2 01/10/25 0816 <Electronically signed by Dallin Christopher DO> Cosigner Signature (if applicable): CC: ~ Signed [facility] Work Phone: 1(982) 470-194806-25-2025 Progress note Author Luis Antonio Navarro [facility] Note Date/Time January 09, 2025 5:22 pm [facility] Medical Records Department [address] [place] [address] Progress Note - Hospitalist 01/09/25 1209 MR#: [id number] Acct: [id number] Name: PERNELL RODRIGUEZ Rep #:[id number] : 1960 64 From: Luis Antonio [...] 76.0 H, Lymph % (Auto) 15.8 L, [place] % (Auto) 6.6, Eos % (Auto) 1.3, [...] Sl. Cloudy, Urine pH 6.0, Ur Specific [place] 1.020,Urine Protein 30 H, Urine Glucose (UA) [...] % (Auto) 63.5, Lymph % (Auto) 25.4, [place] % (Auto) 9.5, Eos % (Auto) 1.2, [...] acute intracranial abnormality. Senescent changes. Reading Location: [facility] Chest X-Ray 01/08/25 17:00 IMPRESSION: Slightly limited exam, without definite evidence of an acute cardiopulmonary abnormality. Reading Location: [facility] Physical Exam Const alert, oriented x3 [...] is a 64-year-old female who presented to [facility] ED on 01/08/2025 with altered mentation. 1. Sepsis suspected secondary to UTI ? Commercial Designer following. Met sepsis criteria on admit with [...] reportedly been staying with a friend in [place] recently and has been applying for housing. [...] 35 minutes. Charges/Coding Visit Charges Inpatient E&M: 12860 Subs Hosp L2 01/09/25 1722 <Electronically signed by Luis Antonio Navarro DO> Cosigner Signature (if applicable): CC: ~ Signed [facility] Work Phone: 1(556) 471-343206-25-2025 Radiology Diagnostic study [facility]06-25-2025 NoteHNO ID: [id number] Author: JOSE JARRELL MA Service: ? Author Type: Tool And Die Maker/Designer Type: Progress Notes Filed: 01/09/2025 07:33 Note Text: Pt admitted into [facility]. Scan on 01/08/2025 7:49 PM by ProviderGita PA-C: [facility] Scan on 01/08/2025 11:49 PM by ProviderGita PA-C: Hospitalist [facility] Scan on 01/09/2025 2:19 AM by ProviderGita PA-C: Commercial Designer [facility]06-25-2025 History of Present illness Narrative* Jose Jarrell MA - 01/09/2025 7:32 AM EDT Pt admitted into [facility]. Scan on 01/08/2025 7:49 PM by ProviderGita PA-C: [facility] Scan on 01/08/2025 11:49 PM by ProviderGita PA-C: Hospitalist [facility] Scan on 01/09/2025 2:19 AM by ProviderGita PA-C: Commercial Designer [facility] documented in this encounterRegency [facility]06-25-2025 Consult note Author Jovani Wynn [facility] Note Date/Time January 09, 2025 1:55 am [facility] Medical Records Department [address] [place] [id number] Consultation - Commercial Designer 01/09/25 0141 MR#: [id number] Acct: [id number] Name: PERNELL RODRIGUEZ Rep #:[id number] : 1960 64 From: Jovani Wynn MD PCP: Dr. Homer Bradford MD Status:ADM IN Location: ICU ICU09-1 HPI Consult Data Date of Consult: 01/09/25 HPI Narrative Reason for Consultation: Sepsis and shock HPI Narrative: PERNELL RODRIGUEZ, is a 64 F who presents as brought in by responders after having been found confused at homeless longterm. Patient is a poor participant in HPI [...] bag. She is on 2Lm NC O2. [facility] Medical History Urinary tract infection History of [...] / Sodium Chloride CONT INF 6 mcg/min .A74D92I ITZEL 11.3 mls/hr Titration Protocol 5 MCG/MIN Sodium Chloride 250 mls @ 15 mls/hr 01/08/25 23:16 IV .J21Q69T PRN Saline Flush Sodium Chloride 250 mls @ 15 mls/hr 01/08/25 23:16 IV .P38Z75F PRN Additional IVPB Infusion Dextrose 250 mls @ 0 mls/hr 01/08/25 23:19 Dextrose 10%-Water IV .Q0M PRN HYPOGLYCEMIA Protocol As Directed Lactated Ringer's 1,000 mls @ 500 mls/hr 01/09/25 00:45 01/09/25 01:15 IV 01/09/25 02:44 500 mls/hr .Q2H ITZEL Administration Insulin Human Lispro 0 unit 01/09/25 07:00 Insulin Lispro 100 Unit/Ml Insuln.Pen SC ACHS [facility] Protocol Levofloxacin 750 mg 01/10/25 22:00 Levofloxacin 750 Mg Tablet PO Q48@2200 [facility] Melatonin 3 mg 01/08/25 20:32 Melatonin 3 Mg Tablet PO QHS PRN PRN INSOMNIA Midodrine 10 mg 01/09/25 08:00 Midodrine Hcl 5 Mg Tablet PO 01/12/25 23:59 TIDCM [facility] Ondansetron HCl 4 mg 01/08/25 20:32 Ondansetron 4 Mg/2 Ml Vial IV Q8H PRN PRN NAUSEA/VOMITING Pantoprazole Sodium 40 mg 01/09/25 10:00 Pantoprazole Sodium 40 Mg Tablet PO DAILY [facility] Prochlorperazine Edisylate 5 mg 01/08/25 20:32 Prochlorperazine 10 Mg/2 Ml Vial IV Q4H PRN PRN Breakthrough Nausea/Vomiting Quetiapine Fumarate 200 mg 01/08/25 22:00 01/08/25 21:51 Quetiapine 100 Mg Tablet PO 200 mg BID [facility] Administration Protocol Senna/Docusate Sodium 2 tablet 01/08/25 [...] 76.0 H, Lymph % (Auto) 15.8 L, [place] % (Auto) 6.6, Eos % (Auto) 1.3, [...] Sl. Cloudy, Urine pH 6.0, Ur Specific [place] 1.020,Urine Protein 30 H, Urine Glucose (UA) [...] applicable): CC: Dr. Homer Bradford MD~ Signed [facility] Work Phone: 1(695) 109-653906-25-2025 History and physical note Author Lauren Vela [facility] Note Date/Time January 08, 2025 11:2 8pm [facility] Medical Records Department [address] [place] [address] H&P Exam - Hospitalist 01/08/251913 MR#: [id number] Acct: [id number] Name: PERNELL RODRIGUEZ Rep #:[id number] : 1960 64 From: Lauren Vela [...] use, Chronic COPD/asthma who presents to the [facility] ED on 01/08/25 with history of altered mental status found at the [facility] where she has been living [...] 750 mg IV x1 given allergy history. [facility] Medical History Urinary tract infection History of [...] 76.0 H, Lymph % (Auto) 15.8 L, [place] % (Auto) 6.6, Eos % (Auto) 1.3, [...] Sl. Cloudy, Urine pH 6.0, Ur Specific [place] 1.020,Urine Protein 30 H, Urine Glucose (UA) [...] acute intracranial abnormality. Senescent changes. Reading Location: [id number] Chest X-Ray 01/08/25 17:00 IMPRESSION: Slightly limited exam, without definite evidence of an acute cardiopulmonary abnormality. Reading Location: [id number] Assessment & Plan Assessment/Plan (1) Sepsis: (2) Complicated urinary tract infection: PLAN: Plan The patient is a 64 y/o F w/ PMHx: Morbidly obese, HTN, HLD, CKD stage III unclear subtype, Hx TIA, Anxiety and Depression/bipolar disorder, PAF, GERD, Tobacco use, Chronic COPD/asthma who presents to the [facility] ED on 01/08/25 with history of altered mental status found at the [facility] where she has been living [...] to Levaquin at that time, will consult blow molder per protocol, will monitor I/Os, lactic acidosis [...] PPI. #12. Homelessness: Complicates presentation, patient without longterm at discharge aside from possibly [employer] [...] Patient does not have healthcare power of family law attorney or living will in place and is uncertain of who she would name at this point. Discussed CODE status at length including difference between FULL code, DNR-CCA and DNR-CCstatus. Following discussions about the differences in these status, requested Full Code status. Advanced Care Planning Face to Face Time: 16 minutes. Charges/Coding Visit Charges Inpatient E&M: 20169 Init Hosp L3 Procedures Hospitalists Procedures: 09466 Advncd Care Plan 30 Min 01/08/258 <Electronically signed by Lauren Vela MD> Cosigner Signature (if applicable): CC: Dr. Lauren Vela MD; Dr. Homer Bradford MD~ Signed [facility] Work Phone: 1(298) 779-977106-24-2025 Discharge summary Author Issa Chapin [facility] Note Date/Time January 08, 2025 7:37 pm [facility] Medical Records Department [address] [place] [address] Emergency Department Summary 01/08/25 MR#: [id number] Acct: [id number] Name: PERNELL RODRIGUEZ CHEKO Rep #:[id number] : 1960 64 From: Issa Chapin MD PCP: Dr. Homer Bradford MD Status:ADM IN Location: ICU ICU09-1 HPI History of Present Illness Chief Complaint: Alt LOC Detail of Chief Complaint: Altered mental status, found [place] Informant: EMS Onset/Context/Timing Onset: - (Patient with altered mental status. Lives at the [facility]) Quality: Altered mental status, tachycardia, febrile and [...] atrial fibrillation. EKG that was transmitted from [employer] revealed a rate of 154 which raise concern for possible ability of atrial for flutter. EKG in the department shows a narrow complex tachycardia that I believe is sinus mechanism. QT is prolonged. There is nonseptic changes noted as well. [facility] Medical History Urinary tract infection History [...] today's lab results to lab results from [facility] Prior ED visit and Prior labs [...] 76.0 H Lymph % (Auto) 15.8 L [place] % (Auto) 6.6 Eos % (Auto) 1.3 [...] Sl. Cloudy Urine pH 6.0 Ur Specific [place] 1.020 Urine Protein 30 H Urine Glucose [...] acute intracranial abnormality. Senescent changes. Reading Location: [id number] Chest X-Ray 01/08/25 17:00 IMPRESSION: Slightly limited exam, without definite evidence of an acute cardiopulmonary abnormality. Reading Location: [id number] CT of the head was reviewed by [...] lactic, Elevated temperature, Sinus tachycardia seen on residential monitor, Tjayr-wh-hzpihya kidney injury, Acutehypoxemic respiratory failure, History of COPD, Complicated urinary tract infection, Sepsis Primary Care Provider: Homer Bradford What to do if you have Problems For any increased pain, shortness of breath, bleeding, nausea or vomiting, chestpain, or any unexpected problems, contact your Primary Care Provider. Call [facility] ([phone]) or report to the closest Emergency Room. Call 911 if necessary. 01/08/251936 <Electronically signed by Issa Chapin MD> Cosigner Signature (if applicable): CC: Dr. Homer Bradford MD ~ Signed [facility] Work Phone: 1(420) 495-816806-24-2025 Evaluation note* Diagnosis Onset Date Resolution Status Admit Date Acidosis, lactic acute December 7:23pm Acute alteration in mental status acute January 08, 2025 7:23pm Acute dehydration acute January 082024 7:23pm Elevated temperature acute January 08, 2025 7:23pm Sinus tachycardia seen on residential monitor acute January 08, 2025 7:23pm Fppoq-hs-hnikcny kidney injury chronic January 08, 2025 7:23pm [...] tract infection acute A ugust 2024 11:16am [place] [facility] Work Phone: 1(835) 683-660806-24-2025 Radiology Diagnostic study [facility]06-24-2025 Radiology Diagnostic study [facility]06-24-2025 Discharge summary Author Issa Chapin [facility] Note Date/Time January 08, 2025 7:37 pm [facility] Medical Records Department [address] [place] [address] Emergency Department Summary 01/08/25 MR#: [id number] Acct: [id number] Name: MICHAELPERNELL CHEKO Rep #:[id number] 3 : 1960 64 From: Issa Chapin MD PCP: Dr. Homer Bradford MD Status:ADM IN Location: ICU ICU09-1 HPI History of Present Illness Chief Complaint: Alt LOC Detail of Chief Complaint: Altered mental status, found down [place] Informant: EMS Onset/Context/Timing Onset: - (Patient with altered mental status. Lives at the [facility]) Quality: Altered mental status, tachycardia, [...] atrial fibrillation. EKG that was transmitted from [employer] revealed a rate of 154 which raise concern for possible ability of atrial for flutter. EKG in the department shows a narrow complex tachycardia that I believe is sinus mechanism. QT is prolonged. There is nonseptic changes noted as well. [facility] Medical History Urinary tract infection History [...] today's lab results to lab results from [facility] Prior ED visit and Prior labs [...] 76.0 H Lymph % (Auto) 15.8 L [place] % (Auto) 6.6 Eos % (Auto) 1.3 [...] Sl. Cloudy Urine pH 6.0 Ur Specific [place] 1.020 Urine Protein 30 H Urine Glucose [...] evidence of pneumothorax. Independent review interpreted by az at 1719.) Diagnostic Testing: Clinical Impression(s) from Imaging Studies Brain CT 01/08/25 16:50 IMPRESSION: Slightly limited exam, without evidence of an acute intracranial abnormality. Senescent changes. Reading Location: [id number] Chest X-Ray 01/08/25 17:00 IMPRESSION: Slightly limited exam, without definite evidence of an acute cardiopulmonary abnormality. Reading Location: [id number] CT of the head was reviewed by [...] lactic, Elevated temperature, Sinus tachycardia seen on residential monitor, Mytpl-ne-uocdgpw kidney injury, Acutehypoxemic respiratory failure, History of COPD, Complicated urinary tract infection, Sepsis Primary Care Provider: Homer Bradford What to do if you have Problems For any increased pain, shortness of breath, bleeding, nausea or vomiting, chestpain, or any unexpected problems, contact your Primary Care Provider. Call [facility] ([phone]) or report to the closest Emergency Room. Call 911 if necessary. 01/08/251936 <Electronically signed by Issa Chapin MD> Cosigner Signature (if applicable): CC: Dr. Homer Bradford MD ~ Signed [facility] Work Phone: 1([phone]) 456-226906-23-2025 Telephone encounter Note* Telephone Encounter - Mary [...] Rodriguez LPN January 07, 2025 2:36 PM [facility]06-23-2025 Miscellaneous Notes* Telephone Encounter - Mary Ann [...] 07, 2025 2:36 PM documented in this encounterRegency Hospital [facility]06-13-2025 Telephone encounter Note * Telephone Encounter - Jose Jarrell MA - 12/28/2024 11:53 AM EDT Attempted to reach pt, unable to reach and unable to LM. Letter being sent to pt to contact office regarding her recent lab results. Did not read [employer] message. Letter mailed to pt asking for a call back. Jose Jarrell MA [facility]06-13-2025 Miscellaneous Notes* Telephone Encounter - Jose Jarrell MA - 12/28/2024 11:53 AM EDT Attempted to reach pt, unable to reach and unable to LM. Letter being sent to pt to contact office regarding her recent lab results. Did not read [employer] message. Letter mailed to pt asking for [...] able. Priyanka Chavez RN documented in this encounterRegency Hospital [facility]06-11-2025 Telephone encounter Note * Telephone Encounter - Priyanka Chavez RN - 12/26/2024 8:35 AM EDT Attempted to contact patient. No answer and VM box is not set up. Please try contacting patient again. [employer] message with provider's response sent to patient as well. Priyanka Chavez RN [facility]06-10-2025 Telephone encounter Note* Telephone Encounter - Homer Bradford MD - 12/25/2024 5:31 PM EDT Let patient know A1c A1c was good at 5.9%. Her kidney functions are improved. Her lipid panel, electrolytes, B12, CBC and Mg were all ok. She needs to come in and complete her urine tests. [facility]06-10-2025 Telephone encounter Note* Telephone Encounter - Priyanka Chavez RN - 12/25/2024 2:12 PM EDT Patient requesting PCP to advise on recent lab results, when able. Priyanka Chavez RN [facility]06-03-2025 History of Present illness Narrative* Homer Bradford [...] several years or f/u with Urology or [employer]. Some of this is due to the fact she lost her test case developer through the [facility] services who help her manage these. Pernell [...] few months. She was first admitted to [facility] on 09/12/2023, after returning from [place], for a blood clot and was discharged with a 30-day prescription for Eliquis. She has not followed up with her primary care physician or specialists since then and has been off Eliquis for 2-3 months. She hasnot seen her operations expert, vocational rehabilitation specialist, or neurologist in the last 6 months. She has been living with a friend temporarily but does not have a permanent place to live and is technically still homeless. She has been advised to move into a assisted facility but has refused due to negative [...] ASHD (arteriosclerotic heart disease) 10/25/[address] oGins Bilateral leg edema 04/25/2015 Bipolar affective disorder (HCC) 04/25/[address] Colindres Chest pain 02/14/[address] Jacob in [facility]. Had a normal cardiac CTA in 2009 with no calcium. Chronic back pain greater than 3 months duration 04/02/2015 Chronic insomnia 03/12/2020 Ilya Calderón ([facility]) on melatonin. 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 Calderón Mixed hyperlipidemia 01/14/2014 Mixed incontinence urge and stress (male)(female) 07/25/2018 Morbid obesity due to excess calories ([facility]) 10/27/2016 Muscle weakness (generalized) 07/25/2018 [...] 04/25/2015 Type 2 diabetes mellitus without complication ([facility]) 04/25/2015 Urinary incontinence 07/08/2017 Well adult exam 10/27/2016 last done: 06/09/2022 Previous Surgical History PAST SURGICAL HISTORY Procedure Laterality Date *STRESS TEST PC 05/06/2016 WNL 2D ECHO (EXEP) 01/14/2014 EF=65% Trival NV, TI, PI, LA enlarged. CARPAL TUNNEL Bilateral 08/28 and 09/25 COLONOSCOPY FLX DX W/COLLJ SPEC WHEN PFRMD 2011 [facility] Colonoscopy, no polyps repeat 10 yrs [...] Micro albumin, CBC 2. Diabetic eye exam ([facility]) (Z01.00) No recent eye exam [...] best interests to either move into a assisted facility or assisted living facility where she [...] which included preparing to see the patient, eahj-bq-ggyb patient care, completing clinical documentation, performing a medically appropriateexamination, counseling and educating the patient/family/caregiver and ordering medications, tests,or procedures. Recording using [employer] software for draft documentation of the visit was discussed with the patient/authorized healthcare sales representative; all questions welcomed and answered. Patient/authorized healthcare sales representative agreed to proceed documented in this encounterRegency Hospital [facility]06-03-2025 NoteHNO ID: [id number] Author: HOMER BRADFORD MD Service: ? Author [...] several years or f/u with Urology or [employer] IN[employer]. Some of this is due to the fact she lost her test case developer through the [facility] services who help her manage these. Pernell [...] few months. She was first admitted to [facility] on 09/12/2023, after returning from [place], for a blood clot and was discharged with a 30-day prescription for Eliquis. She has not followed up with her primary care physician or specialists since then and has been off Eliquis for 2-3 months. She has not seen her operations expert, vocational rehabilitation specialist, or neurologist in the last 6 months. She has been living with a friend temporarily but does not have a permanent place to live and is technically still homeless. She has been advised to move into a assisted facility but has refused due to negative [...] Chest pain 02/14/[address] Jacob in [facility]. Had a normal cardiac CTA in 2009 with no calcium. Chronic back pain greater than 3 months duration 04/02/2015 Chronic insomnia 03/12/2020 Ilya Calderón ([facility]) on melatonin. Chronic obstructive pulmonary disease (HCC) 04/25/2015 Chronic pain 01/14/2014 Constipation 02/12/2014 Dyer or callus 11/16/2015 Current use of proton [...] B12 level 07/16/2022 Lumbosacr (more content not included)...[facility]05-27-2025 Telephone encounter Note* Telephone Encounter - Brianne Graves RN - 12/11/2024 1:56 PM EDT Pt calling in to check on status of order. Let her know order was faxed this morning. Pt states shewill since order has been sent. [facility]05-27-2025 Miscellaneous Notes* Telephone Encounter - Brianne Graves [...] ups) faxed to [facility] at [phone]. Patient reports that the full size briefs are bulky and causing too much skin irritation. Patient has an appointment on 12/11/2024 but reports she needs pull ups ordered today. Please review and advise, Shanti Monreal RN documented in this encounterRegency Hospital [facility]05-27-2025 Telephone encounter Note * Telephone Encounter - Rajani Granger MA - 12/11/2024 11:32 AM EDT Attempted to contact patient to let her know order for pull ups has been faxed. Faxed order. Rajani Granger MA [facility]05-27-2025 Telephone encounter Note* Telephone Encounter - Homer Bradford MD - 12/11/2024 11:03 AM EDT Order ready to be faxed. [facility]05-27-2025 Telephone encounter Note* Telephone Encounter - Rajani Granger MA - 12/11/2024 9:44 AM EDT Spoke with patient today and she will be out soon. Please file order. Rajani Granger MA [facility]05-23-2025 Telephone encounter Note* Telephone Encounter - Shanti Monreal RN - 12/07/2024 4:12 PM EDT She is asking for the XXL. Shanti Monreal, RN [facility]05-23-2025 Telephone encounter Note* Telephone Encounter - Homer Bradford MD - 12/07/2024 3:59 PM EDT So patient's past scripts have been for size XXL. Is she wanting just XL [facility]05-23-2025 Telephone encounter Note* Telephone Encounter - Shanti Monreal RN - 12/07/2024 2:43 PM EDT Pernell calls to report that she needs an order for incontinence supplies (2 XL pull ups) faxed to [facility] at [phone]. Patient reports that the full size briefs are bulky and causing too much skin irritation. Patient has an appointment on 12/11/2024 but reports she needs pull ups ordered today. Please review and advise, Shanti Monreal RN [facility]05-15-2025 NoteHNO ID: [id number] Author: RAJANI GRANGER MA Service: ? Author Type: Tool And Die Maker/Designer Type: Progress Notes Filed: 11/29/2024 09:36 Note Text: Scan on 11/14/2024 1:05 PM by ProviderGita PA-C: Consultation - Emergency Medicine Rajani Granger [facility]05-15-2025 History of Present illness Narrative* Rajani Granger MA - 11/29/2024 9:36 AM EDT Scan on 11/14/2024 1:05 PM by ProviderGita PA-C: Consultation - Emergency Medicine Rajani Granger MA documented in this encounterRegency Hospital [facility]04-29-2025 History of Present illness Narrative* Rajani Granger MA - 11/13/2024 11:37 AM EDT Scan on 11/12/2024 5:37 AM by ProviderGita PA-C: Consultation - Emergency Medicine We do not currently have a working number for the patient to schedule a hospital Follow up. Patientin hospital from 11/04 - 11/07. She is currently homeless. Rajani Granger MA documented in this encounterRegency Hospital [facility]04-29-2025 NoteHNO ID: [id number] Author: RAJANI GRANGER MA Service: ? Author Type: Tool And Die Maker/Designer Type: Progress Notes Filed: 11/13/2024 11:41 Note Text: Scan on 11/12/2024 5:37 AM by Gita Curtis PA-C: Consultation - Emergency Medicine We do not currently have a working number for the patient to schedule a hospital Follow up. Patient in hospital from 11/04 - 11/07. She is currently homeless. Rajanisterling Granger, [facility]04-25-2025 NoteHNO ID: [id number] Author: CAROL ARMENTA MA Service: ? Author Type: Tool And Die Maker/Designer Type: Progress Notes Filed: 11/11/2024 16:13 Note Text: Pt discharged from [facility] Scan on 11/08/2024 8:56 AM by Gita Curtis PA-C: [facility]04-23-2025 [facility]04-21-2025 NoteHNO ID: [id number] Author: ASPEN BELL LPN Service: ? Author Type: LICENSED NURSE Type: Progress Notes Filed: 11/05/2024 08:17 Note Text: Scan on 11/04/2024 3:26 PM by Gita Curtis PA-C: Consultation - Emergency Medicine Scan on 11/04/2024 3:10 PM by [facility] History of Present illness Narrative* Aspen Bell LPN - 11/05/2024 7:52 AM EDT Scan on 11/04/2024 3:26 PM by Gita Curtis PA-C: Consultation - Emergency Medicine Scan on 11/04/2024 3:10 PM by Gita Curtis PA-C documented in this encounterRegency Hospital [facility]04-20-2025 Evaluation note* Diagnosis Onset Date Resolution Status Admit Date Urinary tract infection inactive A pril 2024 2:30pm Acidosis, lactic acute December 7:23pm Acute alteration in mental status acute January 08, 2025 7:23pm Acute dehydration acute January 082024 7:23pm Elevated temperature acute January 08, 2025 7:23pm Sinus tachycardia seen on residential monitor acute January 08, 2025 7:23pm Smqfj-wm-joeuutn kidney injury chron ic January 08, 2025 [...] 2025 9:56am Dyspnea chronic January 31 12:32pm [facility] Work Phone: 1(158) 316-991804-20-2025 Evaluation note* Diagnosis Onset Date Resolution Status Admit Date Urinary tract infection inactive A pril 2024 2:30pm Acidosis, lactic acute December 7:23pm Acute alteration in mental status acute January 08, 2025 7:23pm Acute dehydration acute January 082024 7:23pm Elevated temperature acute January 08, 2025 7:23pm Sinus tachycardia seen on residential monitor acute January 08, 2025 7:23pm Hnnlq-fs-zyqqacn kidney injury chronic January 08, 2025 7:23pm [...] tract infection noneactive A ugust 2024 1:59pm [facility] Work Phone: 1(798) 151-506004-20-2025 Discharge summary [facility] Medical Records Department [address] [place] [address] Emergency Department Summary 11/04/24 MR#: [id number] Acct: [id number] Name: PERNELL RODRIGUEZ Rep #:[id number] 0 : 1960 64 From: Rebecca MAY [...] PMH of COPD, CKD, T2DM, bipolar disorder. [facility] Medical History History of echocardiogram Wears [...] her daughter. She wants to go the [employer] [place]. She believes her daughter will come by [...] (Auto) 70.2 H Lymph % (Auto) 19.2 [place] % (Auto) 7.3 Eos % (Auto) 2.9 [...] Sl. Cloudy Urine pH 5.0 Ur Specific [place] 1.020 Urine Protein 15 H Urine Glucose [...] her daughter. She wants to go the [employer] [place]. She believes her daughter will come by [...] (Auto) 70.2 H Lymph % (Auto) 19.2 [place] % (Auto) 7.3 Eos % (Auto) 2.9 [...] Sl. Cloudy Urine pH 5.0 Ur Specific [place] 1.020 Urine Protein 15 H Urine Glucose [...] mellitus, Acute hyperglycemia Disposition Disposition: Acute Care [facility] What to do if you have Problems For any increased pain, shortness of breath, bleeding, nausea or vomiting, chest pain, or any unexpected problems, contact your Primary Care Provider. Call [facility] ([phone]) or report to the closest Emergency Room. Call 911 if necessary. 11/04/24 1504 Cosigner Signature (if applicable): 11/04/24 1515 CC: Dr. Homer Bradford MD ~ Signed [facility]04-20-2025 History and physical note [facility] Medical Records Department [address] [place] [address] H&P Exam - Hospitalist 11/04/24 1429 MR#: [id number] Acct: [id number] Name: PERNELL RODRIGUEZ Rep #:[id number] 3 : 1960 64 From: Lauren Vela [...] Morbid obesity, GERD who presents to the [facility] ED on 11/04/2024 with history of myriad [...] 15, occult blood 50, positive nitrate, leukocyte [id number] with urine WBCs 25-50 with 3+ urine bacteria, urine culture pending per ED, blood culture pending per ED. From review of cultures very remotely in 2018 patient had an E. coli greater [id number] culture which was pansensitive and in 2014 [...] Sl. Cloudy, Urine pH 5.0, Ur Specific [place] 1.020, Urine Protein 15 H, Urine Glucose [...] (Auto) 70.2 H, Lymph % (Auto) 19.2, [place] % (Auto) 7.3, Eos % (Auto) 2.9, Baso % (Auto) 0.2, Absolute Neuts (auto) 6.9, Absolute Lymphs (auto) 1.90, Nucleated RBC % 0, Sodium 142, Potassium 3.7, Wvkqjqtx652, Carbon Dioxide 26.2, Anion Gap 11, BUN [...] Morbid obesity, GERD who presents to the [facility] ED on 11/04/2024 with history of myriad [...] readmission, not clinically appropriate for consideration for longterm. #13. DVT prophylaxis: Will continue patient home Eliquis regimen. #14. CODE status: Patient does not have healthcare power of family law attorney or living will in place but [...] 16 minutes. Charges/Coding Visit Charges Inpatient E&M: 35462 Init Hosp L3 Procedures Hospitalists Procedures: 12550 Advncd Care Plan 30 Min 11/04/24 1500 Cosigner Signature (if applicable): CC: Dr. Lauren Vela MD; Dr. Homer Bradford MD~ Signed [facility]04-20-2025 Discharge summary Author Rebecca De Santiago [facility] Note Date/Time November 04, 2024 3:1 5pm [facility] Medical Records Department [address] [place] [address] Emergency Department Summary 11/04/24 MR#: [id number] Acct: [id number] Name: PERNELL RODRIGUEZ Rep #:[id number] : 1960 64 From: Rebecca MAY [...] responsive hypotension (Patient responded to 1 L.) [facility] <YADIRA Rajan - Last Filed: 11/04/24 15:04> [facility] Narrative Medical decision making narrative: Patient presenting [...] her daughter. She wants to go the [facility] [place]. She believes her daughter will come by [...] (Auto) 70.2 H Lymph % (Auto) 19.2 [place] % (Auto) 7.3 Eos % (Auto) 2.9 [...] Sl. Cloudy Urine pH 5.0 Ur Specific [place] 1.020 Urine Protein 15 H Urine Glucose (UA) Normal Urine Ketones Negative Urine Occult Blood 50 H Urine Nitrite Positive H Urine Bilirubin Negative Urine Urobilinogen 1 H Ur Leukocyte Esterase 500 H Urine RBC 0 SEEN Urine WBC 25-50 SEEN Ur Squamous Epith Cells 0 SEEN Urine Bacteria 3+ Urine Mucus 0 SEEN <Dr. Issa Chapin MD - Last Filed: 11/04/24 15:15> [facility] MDM Narrative Medical decision making narrative: [...] her daughter. She wants to go the [employer] [place]. She believes her daughter will come by [...] (Auto) 70.2 H Lymph % (Auto) 19.2 [place] % (Auto) 7.3 Eos % (Auto) 2.9 [...] Sl. Cloudy Urine pH 5.0 Ur Specific [place] 1.020 Urine Protein 15 H Urine Glucose [...] Acute hyperglycemia Disposition Disposition: Acute Care [facility] What to do if you have Problems For any increased pain, shortness of breath, bleeding, nausea or vomiting, chest pain, or any unexpected problems, contact your Primary Care Provider. Call [facility] ([phone]) or report to the closest Emergency Room. Call 911 if necessary. 11/04/24 1504 <Electronically signed by Rebecca MAY> Cosigner Signature (if applicable): 11/04/24 1515 <Electronically signed by Issa Chapin MD> CC: Dr. Homer Bradford MD ~ Signed [facility] Work Phone: 1(803) 173-458904-09-2025 NoteHNO ID: [id number] Author: HOMER BRADFORD MD Service: ? Author [...] and reducing skin break down Homer Bradford, [facility]03-07-2025 Discharge summary Author Marco Jones [facility] Note Date/Time September 21, 2024 2:20 pm [facility] Medical Records Department [address] [place] [address] Discharge Summary 09/21/24 1228 MR#: [id number] Acct: [id number] Name: PERNELL RODRIGUEZ Rep #:[id number] : 1960 64 From: Marco Jones MD PCP: Dr. Homer Bradford MD Status:ADM [facility] Prov[facility] Date of Admission: 09/12/24 [...] Jones MD; Dr. Homer Bradford MD~ Signed [facility] Work Phone: 1(747) 296-506803-07-2025 Discharge summary [facility] Medical Records Department [address] [place] [address] Discharge Summary 09/21/24 1228 MR#: [id number] Acct: [id number] Name: PERNELL RODRIGUEZ Rep #:[id number] : 1960 64 From: Marco Jones MD PCP: Dr. Homer Bradford MD Status:ADM IN Location: [place] [id number]- [id number] Providers Date of Admission: 09/12/24 Date [...] Jones MD; Dr. Homer Bradford MD~ Signed [facility]03-07-2025 [facility] Progress note Author [facility] Note Date/Time September 20, 2024 11:5 8am [facility] Medical Records Department [address] [facility] [place] [address] Progress Note - Hospitalist 09/20/24 1155 MR#: [id number] Acct: [id number] Name: MICHAELPERNELL CHEKO Rep #:[id number] : 1960 64 From: Marco Jones MD PCP: Dr. Homer Bradford MD Status:ADM IN Location: [place] [address] Reason for Visit Reason for Visit: Diagnoses Cerebral infarction, unspecified (09/12/24) COVID-19 (09/12/24) Subjective Subjective Overall doing well, no active symptoms Would like to get discharged along with a ride to [employer] to meet her brother if possible. Upon [...] presently waiting bed placement to a homeless longterm. 1. TIA ? MRI is negative ? [...] with PPI Charges/Coding Visit Charges Inpatient E&M: 95603 Subs Hosp L1 09/20/24 1158 <Electronically signed by Marco Jones MD> Cosigner Signature (if applicable): CC: ~ Signed [facility] Work Phone: 1(630) 533-718703-06-2025 Progress note [facility] Medical Records Department [address] [place] [address] Progress Note - Hospitalist 09/20/24 1155 MR#: [id number] Acct: [id number] Name: PERNELL RODRIGUEZ Rep #:[id number] : 1960 64 From: Marco Jones MD PCP: Dr. Homer Bradford MD Status:ADM IN Location: [place] [id number]- 1 Reason for Visit Reason for Visit: Diagnoses Cerebral infarction, unspecified (09/12/24) COVID-19 (09/12/24) Subjective Subjective Overall doing well, no active symptoms Would like to get discharged along with a ride to [employer] to meet her brother if possible. Uponcase [...] presently waiting bed placement to a homeless longterm. 1. TIA ? MRI is negative ? [...] with PPI Charges/Coding Visit Charges Inpatient E&M: 18335 Subs Hosp L1 09/20/24 1158 Cosigner Signature (if applicable): CC: ~ Signed [facility]03-05-2025 Progress note Author Marco Jones [facility] Note Date/Time September 19, 2024 1:16 pm [facility] Medical Records Department [address] [place] [address] Progress Note - Hospitalist 09/19/24 1313 MR#: [id number] Acct: [id number] Name: PERNELL RODRIGUEZ Rep #:[id number] : 1960 64 From: Marco Jones MD PCP: Dr. Homer Bradford MD Status:ADM IN Location: [place] [address] Reason for Visit Reason for Visit: Diagnoses Cerebral infarction, unspecified (09/12/24) COVID-19 (09/12/24) Subjective Subjective Mild headaches, easily awaiting transfer to [facility] Objective Data Objective Data Vital Signs: [...] 80.7 H, Lymph % (Auto) 11.7 L, Q[place]man % (Auto) 6.4, Eos % (Auto) 0.0, [...] to assist. Anticipate the patient may require assisted facility when she is medically ready for discharge. Recent psychiatric hospitalization for roughly 20 days in [facility]. Continue with Seroquel and Ativan DVT: Eliquis Charges/Coding Visit Charges Inpatient E&M: 61652 Init Hosp L1 09/19/24 1316 <Electronically signed by Marco Jones MD> Cosigner Signature (if applicable): CC: ~ Signed [facility] Work Phone: 1(730) 508-740203-05-2025 Progress note [facility] Medical Records Department [address] [place] [address] Progress Note - Hospitalist 09/19/24 1313 MR#: [id number] Acct: [id number] Name: PERNELL RODRIGUEZ Rep #:[id number] 6 : 1960 64 From: Marco Jones MD PCP: Dr. Homer Bradford MD Status:ADM IN Location: [place] [address] Reason for Visit Reason for Visit: Diagnoses [...] 80.7 H, Lymph % (Auto) 11.7 L, [place]man % (Auto) 6.4, Eos % (Auto) 0.0, [...] to assist. Anticipate the patient may require assisted facility when she is medically ready for discharge. Recent psychiatric hospitalization for roughly 20 days in [facility]. Continue with Seroquel and Ativan DVT: Eliquis Charges/Coding Visit Charges Inpatient E&M: 19445 Init Hosp L1 09/19/24 1316 Cosigner Signature (if applicable): CC: ~ Signed [facility]03-04-2025 Progress note Author Guevara Collins [facility] Note Date/Time September 18, 2024 10:5 7am [facility] Medical Records Department [address] [place] [address] Progress Note - Hospitalist 09/18/24 1055 MR#: [id number] Acct: [id number] Name: PERNELL RODRIGUEZ Rep #:[id number] 1 : 1960 64 From: Guevara dyer MD PCP: Dr. Homer Bradford MD Status:ADM IN Location: [place] [address] Subjective Subjective No issues overnight, continue to [...] Potassium 3.9, Chloride Direct 109 H, Carbon Hxnlwbv10.1 L, Anion Gap 10, BUN 14, Creatinine [...] (Auto) 79.6 H, Lymph % (Auto) 13.2 L,Quitman % (Auto) 6.6, Eos % (Auto) 0.0, [...] to assist. Anticipate the patient may require assisted facility when she is medically ready for discharge. Recent psychiatric hospitalization for roughly 20 days in [facility]. Continue with Seroquel and Ativan DVT: Eliquis Charges/Coding Visit Charges Inpatient E&M: 99553 Subs Hosp L1 09/18/24 1057 <Electronically signed by Guevara Collins MD> Cosigner Signature (if applicable): CC: ~ Signed [facility] Work Phone: 1(600) 396-165503-04-2025 Progress note [facility] Medical Records Department [address] [place] [address] Progress Note - Hospitalist 09/18/24 1055 MR#: [id number] Acct: [id number] Name: PERNELL RODRIGUEZ Rep #:[id number] 1 : 1960 64 From: Guevara dyer MD PCP: Dr. Homer Bradford MD Status:ADM IN Location: [place] [address] Subjective Subjective No issues overnight, continue to [...] Potassium 3.9, Chloride Direct 109 H, Carbon Gosivwi17.1 L, Anion Gap 10, BUN 14, Creatinine [...] %(Auto) 79.6 H, Lymph % (Auto) 13.2 L,Quitman % (Auto) 6.6, Eos % (Auto) 0.0, [...] to assist. Anticipate the patient may require assisted facility when she is medically ready for discharge. Recent psychiatric hospitalization for roughly 20 days in [facility]. Continue with Seroquel and Ativan DVT: Eliquis Charges/Coding Visit Charges Inpatient E&M: 75457 Subs Hosp L1 09/18/24 1057 Cosigner Signature (if applicable): CC: ~ Signed [facility]03-03-2025 Progress note Author Guevara Collins [facility] Note Date/Time September 17, 2024 10:3 6am [facility] Medical Records Department [address] [place] [address] Progress Note - Hospitalist 09/17/24 1034 MR#: [id number] Acct: [id number] Name: PERNELL RODRIGUEZ Rep #:[id number] 3 : 1960 64 From: Guevara dyer MD PCP: Dr. Homer Bradford MD Status:[facility] Subjective Subjective No issues overnight, [...] to assist. Anticipate the patient may require assisted facility when she is medically ready for discharge. Recent psychiatric hospitalization for roughly 20 days in [facility]. Continue with Seroquel and Ativan DVT: Eliquis Charges/Coding Visit Charges Inpatient E&M: 13568 Subs Hosp L2 09/17/24 1036 <Electronically signed by Guevara Collins MD> Cosigner Signature (if applicable): CC: ~ Signed [facility] Work Phone: 1(659) 308-901803-03-2025 Progress note [facility] Medical Records Department [address] [place] [address] Progress Note - Hospitalist 09/17/24 1034 MR#: [id number] Acct: [id number] Name: PERNELL RODRIGUEZ Rep #:[id number] 3 : 1960 64 From: Guevara dyer MD PCP: Dr. Homer Bradford MD Status:ADM IN Location: [place] [address] Subjective Subjective No issues overnight, awaiting placement [...] to assist. Anticipate the patient may require assisted facility when she is medically ready for discharge. Recent psychiatric hospitalization for roughly 20 days in [facility]. Continue with Seroquel and Ativan DVT: Eliquis Charges/Coding Visit Charges Inpatient E&M: 93055 Subs Hosp L2 09/17/24 1036 Cosigner Signature (if applicable): CC: ~ Signed [facility]03-03-2025 NoteHNO ID: [id number] Author: ASPEN BELL LPN Service: ? Author Type: LICENSED NURSE Type: Progress Notes Filed: 09/17/2024 08:01 Note Text: Scan on 09/14/2024 3:40 PM by ProviderGita PA-C: Consultation - Neurology [facility]03-03-2025 History of Present illness Narrative* Aspen Bell LPN - 09/17/2024 8:00 AM EST Scan on 09/14/2024 3:40 PM by Provider, ANTONI Pelayo: Consultation - [facility] Progress note Author Guevara Collins [facility] Note Date/Time September 16, 2024 9:26 am [facility] Medical Records Department [address] [place] [address] Progress Note - Hospitalist 09/16/24924 MR#: [id number] Acct: [id number] Name: PERNELL RODRIGUEZ CHEKO Rep #:[id number] 9 : 1960 64 From: Guevara dyer MD PCP: Dr. Homer Bradford MD Status:ADM IN Location: [place] [address] Subjective Subjective No issues overnight, maintaining oxygen [...] 81.1 H, Lymph % (Auto) 11.4 L, Q[place]man % (Auto) 7.1, Eos % (Auto) 0.0, [...] to assist. Anticipate the patient may require assisted facility when she is medically ready for discharge. Recent psychiatric hospitalization for roughly 20 days in [facility]. Continue with Seroquel and Ativan DVT: Eliquis Charges/Coding Visit Charges Inpatient E&M: 86758 Subs Hosp L2 09/16/24925 <Electronically signed by Guevara Collins MD> Cosigner Signature (if applicable): CC: ~ Signed [facility] Work Phone: 1(915) 296-128603-02-2025 Progress note Author Guevara Collins [facility] Note Date/Time September 16, 2024 9:24 am [facility] Medical Records Department [address] [place] [address] Progress Note - Hospitalist 09/16/24923 MR#: [id number] Acct: [id number] Name: PERNELL RODRIGUEZ Rep #:[id number] 8 : 1960 64 From: Guevara dyer MD PCP: Dr. Homer Bradford MD Status:ADM IN Location: [place] [address] 1 Reason for Visit Reason for Visit: [...] 81.1 H, Lymph % (Auto) 11.4 L, [place]man % (Auto) 7.1, Eos % (Auto) 0.0, [...] Cosigner Signature (if applicable): CC: ~ Signed [facility] Work Phone: 1(168) 898-244703-02-2025 Progress note [facility] Medical Records Department [address] [place] [address] Progress Note - Hospitalist 09/16/24924 MR#: [id number] Acct: [id number] Name: PERNELL RODRIGUEZ Rep #:[id number] 9 : 1960 64 From: Guevara dyer MD PCP: Dr. Homer Bradford MD Status:ADM IN Location: [place] [address] Subjective Subjective No issues overnight, maintaining oxygen [...] 81.1 H, Lymph % (Auto) 11.4 L, [place] % (Auto) 7.1, Eos % (Auto) 0.0, [...] to assist. Anticipate the patient may require assisted facility when she is medically ready for discharge. Recent psychiatric hospitalization for roughly 20 days in [facility]. Continue with Seroquel and Ativan DVT: Eliquis Charges/Coding Visit Charges Inpatient E&M: 69073 Subs Hosp L2 09/16/24 0926 Cosigner Signature (if applicable): CC: ~ Signed [facility]03-02-2025 Progress note [facility] Medical Records Department [address] [place] [address] Progress Note - Hospitalist 09/16/24923 MR#: [id number] Acct: [id number] Name: PERNELL RODRIGUEZ Rep #:[id number] 8 : 1960 64 From: Guevara dyer MD PCP: Dr. Homer Bradford MD Status:ADM IN Location: [place] [address] Reason for Visit Reason for Visit: Diagnoses [...] 81.1 H, Lymph % (Auto) 11.4 L, [place] % (Auto) 7.1, Eos % (Auto) 0.0, [...] Cosigner Signature (if applicable): CC: ~ Signed [facility]03-01-2025 Progress note Author Guevara Collins [facility] Note Date/Time September 15, 2024 9:22 am [facility] Medical Records Department [address] [place] [address] Progress Note - Hospitalist 09/15/24920 MR#: [id number] Acct: [id number] Name: PERNELL RODRIGUEZ Rep #:[id number] 5 : 1960 64 From: Guevara dyer MD PCP: Dr. Homer Bradford MD Status:ADM IN Location: [place] [address] Subjective Subjective Doing well, no issues overnight. [...] to assist. Anticipate the patient may require assisted facility when she is medically ready for discharge. Recent psychiatric hospitalization for roughly 20 days in [facility]. Continue with Seroquel and Ativan DVT: Eliquis Charges/Coding Visit Charges Inpatient E&M: 37983 Subs Hosp L2 09/15/24921 <Electronically signed by Guevara Collins MD> Cosigner Signature (if applicable): CC: ~ Signed [facility] Work Phone: [phone]) 662-447503-01-2025 Progress note [facility] Medical Records Department [address] [place] [address] Progress Note - Hospitalist 09/15/24 09 MR#: [id number] Acct: [id number] Name: PERNELL RODRIGUEZ Rep #:[id number] 5 : 1960 64 From: Guevara dyer MD PCP: Dr. Homer Bradford MD Status:ADM IN Location: [place] [address] Subjective Subjective Doing well, no issues overnight. [...] to assist. Anticipate the patient may require assisted facility when she is medically ready for discharge. Recent psychiatric hospitalization for roughly 20 days in [facility]. Continue with Seroquel and Ativan DVT: Eliquis Charges/Coding Visit Charges Inpatient E&M: 82164 Subs Hosp L2 09/15/24 0922 Cosigner Signature (if applicable): CC: ~ Signed [facility]02-28-2025 Progress note Author Guevara Collins [facility] Note Date/Time September 14, 2024 3:49pm [facility] Medical Records Department [address] [place] [address] Progress Note - Hospitalist 09/14/24 1546 MR#: [id number] Acct: [id number] Name: PERNELL RODRIGUEZ [place] Rep #:[id number] 1 : 1960 64 From: Guevara dyer MD PCP: Dr. Homer Bradford MD Status:ADM IN Location: [place] [address] Subjective Subjective Doing well, no issues overnight. [...] to assist. Anticipate the patient may require assisted facility when she is medically ready for discharge. Recent psychiatric hospitalization for roughly 20 days in [facility]. Continue with Seroquel and Ativan DVT: Eliquis Charges/Coding Visit Charges Inpatient E&M: 53356 Subs Hosp L2 09/14/24 1548 <Electronically signed by Guevara Collins MD> Cosigner Signature (if applicable): CC: ~ Signed [facility] Work Phone: [phone] 378-111002-28-2025 Consult note Author Long Marilou [facility] Note Date/Time September 14, 2024 3:22pm [facility] Medical Records Department [address] [place] [address] Consultation - Neurology 09/13/24 1413 MR#: [id number] Acct: [id number] Name: PERNELL RODRIGUEZ [place] Rep #:[id number] 6 : 1960 64 From: Long Arthur PCP: Dr. Homer Bradford MD Status:ADM IN Location: [place] [id number]- 1 Assessment and Plan: Neuro Assessment/Plan 64 y/o woman with h/o Afib on AC, recent admission to psych facility for concernfor blood clot p/w difficult speaking. In ER, noted to be COVID positive. CT Head - concern for left BG stroke. CTA - shows no LVO but shows lymphadenopathy.MRI brain- no acute stroke. LDL-84. A1c-5.4. FBS-OD-80-65%. Today, she reports feeling better with NIHSS-0. 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 I personally [...] lymphadenopathy.MRI brain- no acute stroke. LDL-84. A1c-5.4. YYM-UF-00-65%. Today, she reports feeling better with NIHSS-0. [...] or with change in RN caregiver Freq: [id number] Protocol: Activity Type Activity Date Activity User E-sign Co-sign Detail Recorded Client Recorded Date Recorded By Document 09/12/24 17:30 SHANIKA [id number] 09/12/24 17:32 SHANIKA 09/12/24 17:30 NIH Stroke [...] and with change in RN caregiver. Freq: [id number] Protocol: Activity Type Activity Date Activity User E-sign Co-sign Detail Recorded Client Recorded Date Recorded By Document 09/13/24 04:00 DOREEN [id number] 09/13/24 04:05 DOREEN 09/13/24 04:00 NIH Stroke [...] 79.9 H, Lymph % (Auto) 10.0 L, [place]man % (Auto) 9.5, Eos % (Auto) 0.0, [...] the right posterior cerebral artery. [facility] Neck MRA 09/12/24 15:01 IMPRESSION: Suboptimal [...] arteries appear to be patent. Reading Location: [facility] Brain MRI 09/12/24 16:02 IMPRESSION: No [...] as above. Partially empty sella. Reading Location: [facility] Active Medications Active Medications Active Medications: [...] applicable): CC: Dr. Homer Bradford MD~ Signed [facility] Work Phone: [phone]) 687-976702-28-2025 Progress note [facility] Medical Records Department [address] [place] [address] Progress Note - Hospitalist 09/14/24 1546 MR#: [id number] Acct: [id number] Name: PERNELL RODRIGUEZ Rep #:[id number] 1 : 1960 64 From: Guevara dyer MD PCP: Dr. Homer Bradford MD Status:ADM IN Location: [place] [address] Subjective Subjective Doing well, no issues overnight. [...] to assist. Anticipate the patient may require assisted facility when she is medically ready for discharge. Recent psychiatric hospitalization for roughly 20 days in [facility]. Continue with Seroquel and Ativan DVT: Eliquis Charges/Coding Visit Charges Inpatient E&M: 14694 Subs Hosp L2 09/14/24 1544 Cosigner Signature (if applicable): CC: ~ Signed [facility]02-28-2025 Consult note [facility] Medical Records Department [address] [place] [address] Consultation - Neurology 09/13/24 1413 MR#: [id number] Acct: [id number] Name: PERNELL RODRIGUEZ Rep #:[id number] 6 : 1960 64 From: Long Arthur PCP: Dr. Homer Bradford MD Status:ADM IN Location: [place] [address] Assessment and Plan: Neuro Assessment/Plan 64 y/o woman with h/o Afib on AC, recent admission to psych facility for concernfor blood clot p/w difficult speaking. In ER, noted to be COVID positive. CT Head - concern for left BG stroke. CTA - shows no LVO but shows lymphadenopathy.MRI brain- no acute stroke. LDL-84. A1c-5.4. ELZ-KW-78-65%. Tod ay, she reports feeling better with NIHSS-0. 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 I personally [...] lymphadenopathy.MRI brain- no acute stroke. LDL-84. A1c-5.4. MES-WJ-72-65%. Today, she reports feeling better with NIHSS-0. [...] or with change in RN caregiver Freq: [id number] Protocol: Activity Type Activity Date Activity User E-sign Co-sign Detail Recorded Client Recorded Date Recorded By Document 09/12/24 17:30 SHANIKA [id number] 09/12/24 17:32 SHNAIKA 09/12/24 17:30 NIH Stroke Scale [NIHSS] A [...] and with change in RN caregiver. Freq: [id number] Protocol: Activity Type Activity Date Activity User E-sign Co-sign Detail Recorded Client Recorded Date Recorded By Document 09/13/24 04:00 DOREEN [id number] 09/13/24 04:05 DOREEN 09/13/24 04:00 NIH Stroke [...] 79.9 H, Lymph % (Auto) 10.0 L, [place] % (Auto) 9.5, Eos % (Auto) 0.0, [...] the right posterior cerebral artery. Reading Location: [facility] Neck MRA 09/12/24 15:01 IMPRESSION: Suboptimal [...] arteries appear to be patent. Reading Location: [facility] Brain MRI 09/12/24 16:02 IMPRESSION: No [...] as above. Partially empty sella. [facility] Active Medications Active Medications Active Medications: [...] applicable): CC: Dr. Homer Bradford MD~ Signed [facility]02-27-2025 Progress note Author Guevara Collins [facility] Note Date/Time September 13, 2024 5:23pm [facility] Medical Records Department [facility] [place] [address] Progress Note - Hospitalist 09/13/248 MR#: [id number] Acct: [id number] Name: PERNELL RODRIGUEZ [place]KO Rep #:[id number] 4 : 1960 64 From: Guevara dyer MD PCP: Dr. Homer Bradford MD Status:ADM IN Location: [place] [address]- Subjective Subjective Doing well, no issues overnight. [...] (Auto) 79.9 H, Lymph % (Auto) 10.0 L,Quitman % (Auto) 9.5, Eos % (Auto) 0.0, [...] to assist. Anticipate the patient may require assisted facility when she is medically ready for discharge. Recent psychiatric hospitalization for roughly 20 days in [facility]. Continue with Seroquel and Ativan DVT: Eliquis Charges/Coding Visit Charges Inpatient E&M: 82140 Subs Hosp L2 09/13/24 4133 <Electronically signed by Guevara Collins MD> Cosigner Signature (if applicable): CC: ~ Signed [facility] Work Phone: 1([phone]) 559-343702-27-2025 Progress note [facility] Medical Records Department [address] [place] [address] Progress Note - Hospitalist 09/13/24 1718 MR#: [id number] Acct: [id number] Name: PERNELL RODRIGUEZ Rep #:[id number] 4 : 1960 64 From: Guevara dyer MD PCP: Dr. Homer Bradford MD Status:ADM IN Location: [place] [address] Subjective Subjective Doing well, no issues overnight. [...] (Auto) 79.9 H, Lymph % (Auto) 10.0 L,Q[place]man % (Auto) 9.5, Eos % (Auto) 0.0, [...] the right posterior cerebral artery. Reading Location: [facility] Neck MRA 09/12/24 15:01 IMPRESSION: Suboptimal [...] arteries appear to be patent. [facility] Brain MRI 09/12/24 16:02 IMPRESSION: No acute [...] to assist. Anticipate the patient may require assisted facility when she is medically ready for discharge. Recent psychiatric hospitalization for roughly 20 days in [facility]. Continue with Seroquel and Ativan DVT: Eliquis Charges/Coding Visit Charges Inpatient E&M: 05705 Subs Hosp L2 09/13/24 1723 Cosigner Signature (if applicable): CC: ~ Signed [facility]02-27-2025 NoteHNO ID: [id number] Author: ASPEN BELL LPN Service: ? Author Type: LICENSED NURSE Type: Progress Notes Filed: 09/13/2024 07:33 Note Text: Scan on 09/12/2024 3:24 PM by Gita Curtis PA-C: Consultation - Emergency Medicine Scan on 09/12/2024 3:30 PM by Gita Curtis PA-[facility] 09-13-2024 History of Present illness Narrative* Aspen Bell LPN - 09/13/2024 7:32 AM EST Scan on 09/12/2024 3:24 PM by Gita Curtis PA-C: Consultation - Emergency Medicine Scan on 09/12/2024 3:30 PM by Gita Curtis PA-C [facility] History and physical note Author Wilfredo Denton [facility] Note Date/Time September 12, 2024 3:07pm [facility] Medical Records Department [address] [place] [address] H&P Exam - Hospitalist 09/12/24 1459 MR#: [id number] Acct: [id number] Name: PERNELL RODRIGUEZ #:[id number] 0 : 1960 64 From: Wilfredo Denton DO PCP: Dr. Homer Bradford MD Status:REG ER Location: ED HPI - General General Date of Service: 09/12/24 Chief Complaint: difficulty speaking. HPI Narrative PERNELL RODRIGUEZ, is a 64 F who presents with difficulty speaking. Patient was recently admitted in a psychiatric facility in [facility] from the beginning of August to yesterday. [...] that are not germane to the questions. [facility] Medical History (Updated 09/12/24 @ 15:04 by [...] 85.1 H, Lymph % (Auto) 5.9 L, [place]man %(Auto) 8.4, Eos % (Auto) 0.1, Baso [...] Clarity Clear, Urine pH 6.0, Ur Specific [place] 1.010, Urine Protein Negative, Urine Glucose (UA) [...] IMPRESSION: No active cardiopulmonary disease. Reading Location: [facility] 09/12/24 11:40 IMPRESSION: 1. Left basal ganglia area of diminished attenuation concerning for recent areaof ischemic infarction. 2. Bilateral maxillary sinus inflammation. Reading Location: [facility] Assessment & Plan Assessment/Plan (1) Stroke: PLAN: [...] to assist. Anticipate the patient may require assisted facility when she is medically ready for discharge. Recent psychiatric hospitalization for roughly 20 days in [facility]. Will request records if were able to [...] medically ready anticipate patient would likely require assisted facility. Charges/Coding Visit Charges Inpatient E&M: 08923 Init Hosp L3 09/12/24 1507 <Electronically signed by Wilfredo Denton DO> Cosigner Signature (if applicable): CC: Dr. Wilfredo Denton DO; Dr. Homer Bradford MD~ Signed [facility] Work Phone: 1(163) 268-893002-26-2025 Discharge summary Author Randy Cabrales [facility] Note Date/Time September 12, 2024 3:03pm [facility] Medical Records Department [address] [place] [address] Emergency Department Summary 09/12/24 MR#: [id number] Acct: [id number] Name: PERNELL RODRIGUEZ Rep #:[id number] 2 : 1960 64 From: Randy Cabrales MD PCP: Dr. Homer Bradford MD Status:REG ER Location: ED HPI History of Present Illness Chief Complaint: Chest Pain Narrative Narrative: 64-year-old female past medical history of psychiatric disorder/tar dive dyskinesia presents via EMS with multiple somatic complaints. She states that she was just released from a mental hospital in [place] yesterday. She lives here. She states over [...] She once again presents with multiple complaints. [facility] Medical History History of echocardiogram Wears [...] 85.1 H Lymph % (Auto) 5.9 L [place] % (Auto) 8.4 Eos % (Auto) 0.1 [...] Clarity Clear Urine pH 6.0 Ur Specific [place] 1.010 Urine Protein Negative Urine Glucose (UA) [...] (Auto) Neut % (Auto) Lymph % (Auto) [place] % (Auto) Eos % (Auto) Baso % [...] Color Urine Clarity Urine pH Ur Specific [place] Urine Protein Urine Glucose (UA) Urine Ketones Urine Occult Blood Urine Nitrite Urine Bilirubin Urine Urobilinogen Ur Leukocyte Esterase Urine RBC Urine WBC Ur Squamous Epith Cells Urine Bacteria Urine Mucus Radiography Diagnostic Testing: Clinical Impression(s) from Imaging Studies Chest X-Ray 09/12/24 11:01 IMPRESSION: No active cardiopulmonary disease. Reading Location: [facility] 09/12/24 11:40 IMPRESSION: 1. Left basal ganglia area of diminished attenuation concerning for recent areaof ischemic infarction. 2. Bilateral maxillary sinus inflammation. Reading Location: [facility] Management Discussion w/another healthcare provider: Hospitalist (Dr. Denton) Discharge Plan Dx/Rx/DC Orders Clinical Impression: COVID, Chest pain, COPD exacerbation, CKD (chronic kidney disease) stage 3, TCW93-74 ml/min Disposition Disposition: [facility] What to do if you have Problems For any increased pain, shortness of breath, bleeding, nausea or vomiting, chestpain, or any unexpected problems, contact your Primary Care Provider. Call [facility] ([phone]) or report to the closest Emergency Room. Call 911 if necessary. 09/12/24 1503 <Electronically signed by Randy Cabrales MD> Cosigner Signature (if applicable): CC: Dr. Homer Bradford MD ~ Signed [facility] Work Phone: 1(897) 391-716002-26-2025 Evaluation note* Diagnosis Onset Date Resolution Status Admit Date Chest pain acute September 12, 2024 2:50pm COVID acute September 12, 2024 2:50pm Stroke acute September 12, 2024 2:50pm CKD (chronic kidney disease) stage 3, GFR 30-59 ml/min chronic Februa 2024 2:50pm COPD exacerbation chronic uar y 2024 2:50pm [facility] Work Phone: 1(175) 487-959102-26-2025 Evaluation note* Diagnosis Onset Date Resolution Status Admit Date CKD (chronic kidney disease) stage 3, GFR 30-59 ml/min chronic Februa ry 2024 2:50pm Chest pain resolved September 12, 2024 2:50pm COPD exacerbation resolved y 2024 2:50pm COVID resolved September 12, 2024 2:50pm Stroke resolved September 12, 2024 2:50pm Urinary tract infection acute A pril 2024 2:30pm [facility] Work Phone: 1(974) 154-617802-26-2025 Evaluation note* Diagnosis Onset Date Resolution Status [...] January 08 7:30pm Sinus tachycardia seen on residential monitor acute January 08, 2025 7:30pm Baegm-cv-gchzkft kidney injury chronic January 08, 2025 7:30pm DM (diabetes mellitus), type 2 chronic January 08, 2025 7:30pm History of COPD chronic December 7:30pm HLD (hyperlipidemia) chronic January 08, 2025 7:30pm [facility] Work Phone: 1(845) 101-186602-26-2025 Evaluation note* Diagnosis Onset Date Resolution Status [...] January 08 7:23pm Sinus tachycardia seen on residential monitor acute January 08, 2025 7:23pm Pfdti-dt-idydxxg kidney injury chronic Rosalina 24th, 2025 7:23pm DM (diabetes mellitus), type 2 chronic January 08, 2025 7:23pm History of COPD chronic December 7:23pm HLD (hyperlipidemia) chronic January 08, 2025 7:23pm [facility] Work Phone: 1(953) 609-251502-26-2025 History and physical note [facility] Medical Records Department [address] [place] [address] H&P Exam - Hospitalist 09/12/24 1459 MR#: [id number] Acct: [id number] Name: PERNELL RODRIGUEZ Rep #:[id number] : 1960 64 From: Wilfredo Denton DO PCP: Dr. Homer Bradford MD Status:REG ER Location: ED HPI - General General Date of Service: 09/12/24 Chief Complaint: difficulty speaking. HPI Narrative PERNELL RODRIGUEZ, is a 64 F who presents with difficulty speaking. Patient was recently admitted in apsychiatric facility in [facility] from the beginning of August to yesterday. [...] that are not germane to the questions. [facility] Medical History (Updated 09/12/24 @ 15:04 by [...] 85.1 H, Lymph % (Auto) 5.9 L, Q[place] %(Auto) 8.4, Eos % (Auto) 0.1, Baso [...] Clarity Clear, Urine pH 6.0, Ur Specific [place] 1.010, Urine Protein Negative, Urine Glucose (UA) [...] IMPRESSION: No active cardiopulmonary disease. Reading Location: [facility] 09/12/24 11:40 IMPRESSION: 1. Left basal ganglia area of diminished attenuation concerning for recent areaof ischemic infarction. 2. Bilateral maxillary sinus inflammation. Reading Location: [facility] Assessment & Plan Assessment/Plan (1) Stroke: PLAN: [...] to assist. Anticipate the patient may require assisted facility when she is medically ready for discharge. Recent psychiatric hospitalization for roughly 20 days in [facility]. Will request records if were able to [...] medically ready anticipate patient would likely require assisted facility. Charges/Coding Visit Charges Inpatient E&M: 22116 Init Hosp L3 09/12/24 1507 Cosigner Signature (if applicable): CC: Dr. Wilfredo Denton DO; Dr. Homer Bradford MD~ Signed [facility]02-26-2025 [facility]charge [facility] Medical Records Department [address] [place] [address] Emergency Department Summary 09/12/24 MR#: [id number] Acct: [id number] Name: PERNELL RODRIGUEZ Rep #:[id number] : 1960 64 From: Randy Cabrales MD PCP: Dr. Homer Bradford MD Status:REG ER Location: ED HPI History of Present Illness Chief Complaint: Chest Pain Narrative Narrative: 64-year-old female past medical history of psychiatric disorder/tar dive dyskinesia presents via EMS with multiple somatic complaints. She states that she was just released from a mental hospital in [place] yesterday. She lives here. She states over [...] She once again presents with multiple complaints. [facility] Medical History History of echocardiogram Wears [...] 85.1 H Lymph % (Auto) 5.9 L Q[place] % (Auto) 8.4 Eos % (Auto) 0.1 [...] Clarity Clear Urine pH 6.0 Ur Specific [place] 1.010 Urine Protein Negative Urine Glucose (UA) [...] (Auto) Neut % (Auto) Lymph % (Auto) [place] % (Auto) Eos % (Auto) Baso % [...] Color Urine Clarity Urine pH Ur Specific [place] Urine Protein Urine Glucose (UA) Urine Ketones Urine Occult Blood Urine Nitrite Urine Bilirubin Urine Urobilinogen Ur Leukocyte Esterase Urine RBC Urine WBC Ur Squamous Epith Cells Urine Bacteria Urine Mucus Radiography Diagnostic Testing: Clinical Impression(s) from Imaging Studies Chest X-Ray 09/12/24 11:01 IMPRESSION: No active cardiopulmonary disease. Reading Location: [facility] 09/12/24 11:40 IMPRESSION: 1. Left basal ganglia area of diminished attenuation concerning for recent areaof ischemic infarction. 2. Bilateral maxillary sinus inflammation. Reading Location: [facility] Management Discussion w/another healthcare provider: Hospitalist (Dr. Denton) Discharge Plan Dx/Rx/DC Orders Clinical Impression: COVID, Chest pain, COPD exacerbation, CKD (chronic kidney disease) stage 3, BPA14-64 ml/min Disposition Disposition: Acute Care [facility] What to do if you have Problems For any increased pain, shortness of breath, bleeding, nausea or vomiting, chestpain, or any unexpected problems, contact your Primary Care Provider. Call [facility] ([phone]) or report tothe closest Emergency Room. Call 911 if necessary. 09/12/24 1503 Cosigner Signature (if applicable): CC: Dr. Homer Bradford MD ~ Signed [facility]02-26-2025 Radiology Diagnostic study note [facility] Imaging Services [address] [place] [address] Chest 1 View (Portable) MR#: [id number] Acct: [id number] Name: PERNELL RODRIGUEZ Rep #: [id number] : 1960 F 64 From: Carolyn Meza MD PCP: Dr. Homer Bradford MD Status: [facility] ER Study:Chest 1 View (Portable) Date of Exam: 09/12/24 Exam# [id number] Ordering Dr: Randy Cabrales MD PROCEDURE: CHEST [...] IMPRESSION: No active cardiopulmonary disease. Reading Location: [facility]-1 CC: Dr. Randy Cabrales MD; Dr. Homer Bradford MD ~ 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: Signed [facility]02-26-2025 Radiology Diagnostic study note [facility] Imaging Services [address] [place] [address] Brain/Head without Contrast MR#: [id number] Acct: [id number] Name: PERNELL RODRIGUEZ Rep #: [id number] : 1960 F 64 From: Carolyn Meza MD PCP: Dr. Homer Bradford MD Status: REG ER Study:Brain/Head without Contrast Date of Exa m: 09/12/24 Exam# [id number] Ordering Dr: Randy Cabrales MD EXAM: CT [...] 2. Bilateral maxillary sinus inflammation. Reading Location: [place] [address] CC: Dr. Randy Cabrales MD; Dr. Homer Bradford MD ~ 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: Signed [facility]12-04-2024 Telephone encounter Note* Telephone Encounter - Homer [...] a day. Authorizing Provider: HOMER BRADFORD MD [facility]12-04-2024 Miscellaneous Notes* Telephone Encounter - Homer Bradford [...] 20, 2024 2:55 PM documented in this encounterRegency [facility]12-04-2024 Telephone encounter Note * Telephone Encounter - [...] Cardoza LPN June 20, 2024 2:55 PM [facility]10-12-2024 Telephone encounter Note* Telephone Encounter - Homer Bradford MD - 04/28/2024 7:55 AM EDT The following approved medication requests have been transmitted electronically. Requested Prescriptions Signed Prescriptions Disp Refills lovastatin 40 mg tablet 90 tablet 1 Sig: TAKE 1 TABLET BY MOUTH DAILY AT BEDTIME. FOR CHOLESTEROL. Authorizing Provider: HOMER BRADFORD MD [facility]10-12-2024 Miscellaneous Notes* Telephone Encounter - Homer Bradford [...] 27, 2024 3:40 PM documented in this encounterRegency Hospital [facility]10-11-2024 Telephone encounter Note * Telephone Encounter - [...] Rasheed LPN April 27, 2024 3:40 PM [facility]09-12-2024 Telephone encounter Note* Telephone Encounter - Mary [...] Rodriguez LPN March 29, 2024 10:57 AM [facility]09-12-2024 Miscellaneous Notes* Telephone Encounter - Mary Ann [...] 29, 2024 10:57 AM documented in this encounterRegency Hospital [facility]09-09-2024 Telephone encounter Note * Telephone Encounter - Мария Hernandes LPN - 03/26/2024 3:09 PM EDT Pt notified of results and provider message. Мария Hernandes LPN [facility]09-09-2024 Miscellaneous Notes* Telephone Encounter - Мария Hernandes [...] has improved. Cholesterol stable. documented in this encounterRegency Hospital [facility]09-09-2024 History of Present illness Narrative* Aspen Bell LPN - 03/26/2024 2:37 PM EDT Scan on 03/26/2024 1:49 PM by Provider, ANTONI Pelayo: Consultation - Dermatology documented in this encounterRegency Hospital [facility]09-09-2024 Telephone encounter Note * Telephone Encounter - Carol Armenta MA - 03/26/2024 9:30 AM EDT Message left for pt to call back for results. Carol Armenta MA [facility]09-06-2024 Telephone encounter Note* Telephone Encounter - Aspen Bell LPN - 03/23/2024 1:44 PM EDT Left message for pt to contact office. Aspen Bell LPN [facility]09-06-2024 Telephone encounter Note* Telephone Encounter - Meagan Yusuf PA-C - 03/23/2024 11:03 AM EDT Covid/flu/rsv neg. Kidney function is stable. A1c has improved. Cholesterol stable. [facility]09-05-2024 History of Present illness Narrative* Meagan Yusuf [...] Chest pain Comment: Sees Dr. Jacob in [facility]. Had a normal cardiac CTA in 2009 with no calcium. 04/02/2015: Chronic back pain greater than 3 months duration 03/12/2020: Chronic insomnia Comment: Ilya Calderón ([facility]) on melatonin. 04/25/2015: Chronic obstructive pulmonary disease (HCC) 01/14/2014: Chronic pain 02/12/2014: Constipation 11/16/2015: Dyer or callus 10/11/2017: Current use of proton pump inhibitor 01/14/2014: CVA (cerebral infarction) 01/14/2014: Diabetic eye exam ([facility]) Comment: Seebryan Sanchez last done 03/02/2019 01/14/2014: Diabetic foot ([facility]) Comment: Seebryan Martins 01/14/2014: Extrapyramidal [...] 04/25/2015: Major depressive disorder, recurrent episode, moderate ([facility]) Comment: On disability 04/28/2017: Migraine [...] 01/14/2014: 2D ECHO (EXEP) Comment: EF=65% Trival NV, TI, PI, LA enlarged. 08/28 and 09/25: [...] ROUTINE Meagan Yusuf PA-C documented in this encounterRegency Hospital [facility]08-19-2024 Telephone encounter Note * Telephone Encounter - Rajani Granger MA - 03/05/2024 10:23 AM EDT Faxed. Rajani Granger MA [facility]08-19-2024 Miscellaneous Notes* Telephone Encounter - Rajani Granger [...] to pcp on 02-16-24, and 01-16-24, to [phone]. Asking if pcp office can fax it to fax # [phone] Noted there is a CMN form located in scanned documents on 01-24-24 but it is not filled out or signed. documented in this encounterRegency Hospital [facility]08-16-2024 Telephone encounter Note * Telephone Encounter - Homer Bradford MD - 03/02/2024 4:12 PM EDT Forms ready [facility]08-16-2024 Telephone encounter Note* Telephone Encounter - Rajani Granger MA - 03/02/2024 12:26 PM EDT Printed forms and O/V note given to provider. Rajani Granger MA [facility]08-16-2024 Telephone encounter Note* Telephone Encounter - Erwin Harvey RN - 03/02/2024 11:55 AM EDT Kelsy- [facility]- reports they never received the CMN for incontinent supplies back from pcp office. Reports they faxed it to pcp on 02-16-24, and 01-16-24, to [phone]. Asking if pcp office can fax it to fax # [phone] Noted there is a CMN form located in scanned documents on 01-24-24 but it is not filled out or signed. [facility]07-17-2024 Telephone encounter Note* Telephone Encounter - Rajani Granger MA - 02/01/2024 11:21 AM EDT Re Faxed. Rajani Granger MA [facility]07-17-2024 Miscellaneous Notes* Telephone Encounter - Rajani Granger MA - 02/01/2024 11:21 AM EDT Re Faxed. Rajani Granger MA * Telephone Encounter - Ana Cardoza LPN - 02/01/2024 10:47 AM EDT Patricia with [facility] is calling to let you know they did not received the fax sent back to them on 01-18-24 and asking to have this ref-axed to alternate number [phone]. Ana Cardoza LPN documented in this encounterRegency Hospital [facility]07-17-2024 Telephone encounter Note * Telephone Encounter - Ana Cardoza LPN - 02/01/2024 10:47 AM EDT Patricia with [facility] is calling to let you know they did not received the fax sent back to them on 01-18-24 and asking to have this ref-axed to alternate number [phone]. Ana Cardoza LPN [facility]07-16-2024 Telephone encounter Note* Telephone Encounter - Rajani Granger MA - 01/31/2024 10:14 AM EDT Faxed. Rajani Granger MA [facility]07-16-2024 Miscellaneous Notes* Telephone Encounter - Rajani Granger MA - 01/31/2024 10:14 AM EDT Faxed. Rajani Granger MA * Telephone Encounter - Homer Bradford MD - 01/31/2024 8:04 AM EDT Script ready to be faxed to [phone] * Telephone Encounter - Maria Alejandra Braswell RN - 01/30/2024 5:23 PM EDT Patient calling for script for pull ups size 2X be sent to [facility]. Pended from previous order. Maria Alejandra Braswell RN documented in this encounterRegency Hospital [facility]07-16-2024 Telephone encounter Note * Telephone Encounter - Homer Bradford MD - 01/31/2024 8:04 AM EDT Script ready to be faxed to [phone] [facility]07-15-2024 Telephone encounter Note* Telephone Encounter - Maria Alejandra Braswell RN - 01/30/2024 5:23 PM EDT Patient calling for script for pull ups size 2X be sent to [facility]. Pended from previous order. Maria Alejandra Braswell RN [facility]07-03-2024 Telephone encounter Note* Telephone Encounter - Rajani Granger MA - 01/18/2024 5:04 PM EDT Received fax from [facility] requesting updated office note regarding the incontinence. Faxed most recent office note. Patient receives her incontinence supplies. Rajani Granger MA' [place] [address]-03-2024 Miscellaneous Notes* Telephone Encounter - Rajani Granger MA - 01/18/2024 5:04 PM EDT Received fax from [facility] requesting updated office note regarding the incontinence. Faxed most recent office note. Patient receives her incontinence supplies. Rajani Granger MA' documented in this encounterRegency Hospital [facility]06-19-2024 Telephone encounter Note * Telephone Encounter - [...] once daily. Authorizing Provider: HOMER BRADFORD MD [facility]06-19-2024 Miscellaneous Notes* Telephone Encounter - Homer Bradford [...] 04, 2024 3:29 PM documented in this encounterRegency Hospital [facility] West06-19-2024 Telephone encounter Note * Telephone Encounter - [...] Rodriguez LPN January 04, 2024 3:29 PM [facility]06-10-2024 Telephone encounter Note* Telephone Encounter - Shanti Monreal RN - 12/26/2023 12:23 PM EDT Patient calls and notified of results. Patient verbalizes understanding. Shanti Monreal RN [facility]06-10-2024 Miscellaneous Notes* Telephone Encounter - Shanti Monreal [...] her mammogram was normal. documented in this encounterRegency Hospital [facility] West06-10-2024 Telephone encounter Note * Telephone Encounter - Rajani Granger MA - 12/26/2023 10:16 AM EDT Left message for patient to contact office. Rajani Granger MA [facility]06-08-2024 Telephone encounter Note* Telephone Encounter - Homer Bradford MD - 12/24/2023 11:33 PM EDT Let patient know her mammogram was normal. [facility]06-07-2024 Note* Letter - Coordinator, Mammography - 12/23/2023 4:55 PM EDT December 26, 2023 PID: [id number] Pernell PepeMarci Rodriguez [address] [place] [address] Dear Ms. Rodriguez, We are pleased to [...] report will be kept on file at [facility] as part of your permanent medical record and are available for your continuing care. Thank you for allowing us to help in meeting your health care needs. Sincerely, Dr. Poole Interpreting Radiologist [facility] (Normal-Clinical Evaluation) [facility]06-07-2024 Miscellaneous Notes* Letter - Coordinator, Mammography - 12/23/2023 4:55 PM EDT December 26, 2023 PID: [id number] Pernell Jaja Rodriguez [address] [place] [address] Dear Ms. Rodriguez, We are pleased to [...] report will be kept on file at [facility] as part of your permanent medical record and are available for your continuing care. Thank you for allowing us to help in meeting your health care needs. Sincerely, Dr. Poole Interpreting Radiologist [facility] (Normal-Clinical Evaluation) documented in this encounterRegency Hospital [facility]06-06-2024 History of Present illness Narrative* Irasema Gentile [...] PATIENT PRESENTS WITH AN IMPLANTABLE OR ATTACHED PARENTING SKILLS INSTRUCTOR: No RADIOLOGY DEPARTMENT: Mammography PERIPHERAL IV DATA: Not applicable SIGNED BY: Emily Hernandez December 22, 2023 12:53 PM documented in this encounterRegency Hospital [facility]05-14-2024 History of Present illness Narrative* Antwan Cope PT - 11/29/2023 5:05 PM EDT Program_ID:[id number] Access Code: [email or web address] URL: [email or web address] Date: 11-29-2023 Prepared By: Antwan Cope Program [...] or less with 2/10 pain or less [place] in home exercise program. Perform reaching overhead without pain. Increased strength of LUE to 4+/5 or greater for ease of lifting, reaching, and pushing Patient Goals: Reduce pain Planned Interventions, Frequency, and Duration: Current Frequency: 1x/week Duration: 4 weeks Total Number of Visits Planned: 4 Planned Treatment Interventions: Therapeutic exercise (80317), Neuromuscular re- education (89180), Therapeutic activities (44731), Manual therapy (95723), Self- alf management (71971), Patient/Family/Caregiver Education PLAN FOR NEXT VISIT: Supine [...] 171 Antwan Cope PT documented in this encounterRegency Hospital [facility]05-10-2024 History of Present illness Narrative* Hannah Kwon LPN - 11/25/2023 1:50 PM EDT Scan on 11/24/2023 11:52 AM by Provider, External, PA-C: Miscellaneous Procedures Scan on 11/24/2023 11:49 AM by Gita Curtis PA-C: Discharge Summary Scan on 11/24/2023 10:36 AM by Gita Curtis PA-C: Jay Kwon LPN documented in this encounterRegency Hospital [facility]05-09-2024 Procedure [facility]05-01-2024 Telephone encounter Note* Telephone Encounter - Rajani Granger MA - 11/16/2023 11:05 AM EDT Patient notified and voiced understanding. Patient wanted the Mammogram cancelled for today because of her shoulder pain., Rajani Granger MA [facility]05-01-2024 Miscellaneous Notes* Telephone Encounter - Rajani Granger [...] instructed by Dr. Godwin. documented in this encounterRegency Hospital [facility] West05-01-2024 Telephone encounter Note * Telephone Encounter - Meagan Yusuf PA-C - 11/16/2023 10:29 AM EDT Xray of Left shoulder is normal. Still waiting for the read on R shoulder. Continue with Physical Therapy as instructed by Dr. Godwin. [facility]04-30-2024 Telephone encounter Note* Telephone Encounter - Homer Bradford MD - 11/15/2023 4:02 PM EDT Noted. [facility]04-30-2024 Miscellaneous Notes* Telephone Encounter - Homer Bradford [...] elquis. Patient's elquis is managed by her Software Engineering Specialist. Sent fax requesting an update O/V with the procedure they are wanting to do be sent to our office Also notified office that Cardiology manages her Elquis Rajani Granger MA documented in this encounterRegency Hospital [facility] West04-30-2024 Telephone encounter Note * Telephone Encounter - Rajani Granger MA - 11/15/2023 2:22 PM EDT Patient's friend dropped off update medication list. He indicated that Dr. Alba would be contacting the office regarding bladder leakage and patient would be having a procedure and waiting approval for patient to stop the elquis. Patient's elquis is managed by her Software Engineering Specialist. Sent fax requesting an update O/V with the procedure they are wanting to do be sent to our office Also notified office that Cardiology manages her Elquis Rajani Granger MA [facility]04-29-2024 History of Present illness Narrative* Homer Bradford [...] Chest pain 02/14/[address] Jacob in [facility]. Had a normal cardiac CTA in 2009 with no calcium. Chronic back pain greater than 3 months duration 04/02/2015 Chronic insomnia 03/12/2020 Ilya Calderón ([facility]) on melatonin. Chronic obstructive pulmonary disease (HCC) 04/25/2015 Chronic pain 01/14/2014 Constipation 02/12/2014 Dyer or callus 11/16/2015 Current use of proton pump inhibitor 10/11/2017 CVA (cerebral infarction) 01/14/2014 Diabetic eye exam ([facility]) 01/14/[address] Sanchez last done 03/02/2019 Diabetic foot ([facility]) 01/14/[address] Martins Extrapyramidal [...] 04/16/2014 Major depressive disorder, recurrent episode, moderate ([facility]) 04/25/2015 On disability Migraine without aura and without status migrainosus, not intractable 04/28/[address] Calderón Mixed hyperlipidemia 01/14/2014 Mixed incontinence urge and stress (male)(female) 07/25/2018 Morbid obesity due to excess calories ([facility]) 10/27/2016 Muscle weakness (generalized) 07/25/2018 [...] WNL 2D ECHO (EXEP) 01/14/2014 EF=65% Trival NV, TI, PI, LA enlarged. CARPAL TUNNEL Bilateral 08/28 and 09/25 COLONOSCOPY FLX DX W/COLLJ SPEC WHEN [facility]MD [facility] Colonoscopy, no polyps repeat 10 yrs [...] Abs Lymph 1.00 - 4.00 k/uL 2.36 Quitman% % 10.7 Abs [place]man <0.87 k/uL 0.82 Eosin% % 2.5 Abs Eosin <0.46 k/uL 0.19 Baso% % 0.4 Abs Baso <0.11 k/uL 0.03 Immature Gran % % 0.3 IMMATURE GRANS (ABS) <0.10 k/uL <0.03 NRBC /100 WBC 0.0 Absolute nRBC <0.01 k/uL <0.01 DTYPE Auto Color Yellow Yellow Clarity Clear Clear Glucose, Urine Negative Negative Bilirubin, Urine Negative Negative Ketones, Urine Negative Negative Specific [place], Ur 1.005 - 1.030 1.017 Hemoglobin/Blood,Ur Negative [...] 13. Bipolar affective disorder, remission status unspecified ([facility]) - ICD9: 296.80, ICD10: F31.9 [...] which included preparing to see the patient, mwih-uf-hbti patient care, completing clinical documentation, performing a medically appropriate examination, counseling and educating the patient/family/caregiver and ordering medications, tests, or procedures. Homer Bradford MD * Rajani Granger MA - 11/14/2023 1:54 PM EDT Duplicate entry documented in this encounterRegency Hospital [facility]04-26-2024 History of Present illness Narrative* Jarod Godwin V, DO - 11/11/2023 2:23 PM EDTAssociated Order(s): Large Joint Arthro/Inj: L shoulder joint Post-Procedure Diagnose(s): Rotator cuff disorder, left Images from the original note were not included. SERVICE DATE: November 11, 2023 PCP: Homer Brdaford MD Subjective Patient ID: Pernell is a [...] Major Depressive Disorder, Recurrent Episode, Moderate (Hcc) Dyer Or Callus Nodule of Left Lung Morbid [...] of Left Hip Paroxysmal Atrial Fibrillation ([facility]) Leg Cramps Low Vitamin B12 Level Obesity, Class III, BMI >= 40 PAST MEDICAL HISTORY Diagnosis Date ASHD (arteriosclerotic heart disease) 10/25/[address] Goins Bilateral leg edema 04/25/2015 Bipolar affective disorder ([facility]) 04/25/[address] Colindres Chest pain 02/14/[address] Jacob in [facility]. Had a normal cardiac CTA in 2009 with no calcium. Chronic back pain greater than 3 months duration 04/02/2015 Chronic insomnia 03/12/2020 Ilya Calderón ([facility]) on melatonin. Chronic obstructive pulmonary disease ([facility]) 04/25/2015 Chronic pain 01/14/2014 Constipation 02/12/2014 Dyer or callus 11/16/2015 Current use of proton pump inhibitor 10/11/2017 CVA (cerebral infarction) 01/14/2014 Diabetic eye exam ([facility]) 01/14/[address] Sanchez last done 03/02/2019 Diabetic foot ([facility]) 01/14/[address] Martins Extrapyramidal [...] 04/16/2014 Major depressive disorder, recurrent episode, moderate ([facility]) 04/25/2015 On disability Migraine without aura and without status migrainosus, not intractable 04/28/[address] Calderón Mixed hyperlipidemia 01/14/2014 Mixed incontinence urge and stress (male)(female) 07/25/2018 Morbid obesity due to excess calories ([facility]) 10/27/2016 Muscle weakness (generalized) 07/25/2018 [...] WNL 2D ECHO (EXEP) 01/14/2014 EF=65% Trival NV, TI, PI, LA enlarged. CARPAL TUNNEL Bilateral 08/28 and 09/25 COLONOSCOPY FLX DX W/COLLJ SPEC WHEN PFRMD 2011 [facility] Colonoscopy, no polyps repeat 10 yrs [...] shoulder joint Informed Consent Consent Obtained: Verbal August[place] Protocol A moment to CARE was completed. [...] Continuous Intervention/Comfort measure: Cold documented in this encounterRegency [facility]04-26-2024 History of Present illness Narrative* Thea Sen [...] PATIENT PRESENTS WITH AN IMPLANTABLE OR ATTACHED PARENTING SKILLS INSTRUCTOR: No RADIOLOGY DEPARTMENT: General X-ray: Exam(s) Completed: Upper Extremity X- Ray(s): Shoulder, AP / TRUE AP bilateral Scapular Y view PERIPHERAL IV DATA: Not applicable SIGNED BY: RT Juana(R) November 11, 2023 1:31 PM documented in this encounterRegency Hospital [facility] West03-15-2024 Miscellaneous Notes* Telephone Encounter - Caterina aSlazar RN - 09/30/2023 10:05 AM EDT Pt [...] know based on her meds list from [place] she is not on the Amantadine for her tardive dyskinesia, Florinef for her low blood pressure and Nurtec ODT for her migraines. These were all being prescribed by her neurologist Dr. Calderón. We did reach out to his office and she has not been to see him since 09/2022. Needs to get back in to address these issues. documented in this encounterRegency Hospital [facility]03-14-2024 Miscellaneous Notes* Telephone Encounter - Caterina Salazar [...] UTI Meagan Yusuf PA-C documented in this encounterRegency Hospital [facility] West03-12-2024 Miscellaneous Notes* Addendum Note - Meagan Yusuf PA-C - 09/27/2023 2:33 PM EDTAddended by: MEAGAN BROWNE on: 09/27/2023 02:33 PM Modules accepted: Orders documented in this encounterRegency Hospital [facility]03-12-2024 History of Present illness Narrative* Meagan Yusuf [...] taking spironolactone, however per scanned documents, her operations expert sent this in with 3 refillsin July. [...] Chest pain 02/14/[address] Jacob in [facility]. Had a normal cardiac CTA in 2009 with no calcium. Chronic back pain greater than 3 months duration 04/02/2015 Chronic insomnia 03/12/2020 Ilya Calderón ([facility]) on melatonin. Chronic obstructive pulmonary disease (HCC) 04/25/2015 Chronic pain 01/14/2014 Constipation 02/12/2014 Dyer or callus 11/16/2015 Current use of proton pump inhibitor 10/11/2017 CVA (cerebral infarction) 01/14/2014 Diabetic eye exam ([facility]) 01/14/[address] Sanchez last done 03/02/2019 Diabetic foot ([facility]) 01/14/[address] Martins Extrapyramidal [...] 04/16/2014 Major depressive disorder, recurrent episode, moderate ([facility]) 04/25/2015 On disability Migraine without aura and without status migrainosus, not intractable 04/28/[address] Calderón Mixed hyperlipidemia 01/14/2014 Mixed incontinence urge and stress (male)(female) 07/25/2018 Morbid obesity due to excess calories ([facility]) 10/27/2016 Muscle weakness (generalized) 07/25/2018 [...] WNL 2D ECHO (EXEP) 01/14/2014 EF=65% Trival NV, TI, PI, LA enlarged. CARPAL TUNNEL Bilateral 08/28 and 09/25 COLONOSCOPY FLX DX W/COLLJ SPEC WHEN [facility] Colonoscopy, no polyps repeat 10 yrs [...] attempt to get list of meds from [place] to see who is prescribing what medications. I spent a total of 45 minutes on the date of the service which included preparing to see the patient, [id number] patient care, completing clinical documentation, obtaining and/or reviewing separately obtained history, performing a medically appropriate examination, counseling and educating the pat ient/family/caregiver, ordering medications, tests, or procedures, and communicating with other HCPs (not separately reported). documented in this encounterRegency Hospital [facility]03-04-2024 Miscellaneous Notes* Telephone Encounter - Ana Cardoza [...] Maria Alejandra Braswell RN. documented in this encounterRegency Hospital [facility] West10-26-2023 History of Present illness Narrative* Aspen Bell LPN - 05/12/2023 12:40 PM EDT Scan on 05/11/2023 3:41 PM by Provider, ANTONI Pelayo: CT Scan documented in this encounterRegency Hospital [facility] West10-20-2023 Miscellaneous Notes* Telephone Encounter - Aspen Bell [...] been ordered Thank you documented in this encounterRegency Hospital [facility]10-13-2023 Miscellaneous Notes* Telephone Encounter - Homer Bradford [...] you. Umm York RN. documented in this encounterRegency Hospital [facility]09-15-2023 Miscellaneous Notes* Telephone Encounter - Homer Bradford [...] of Last Labs: 02/28/2023 documented in this encounterRegency Hospital [facility] West09-11-2023 History of Present illness Narrative* Carol Armenta Ma - 03/28/2023 2:16 PM EDT View External Labs - Hematology [ID [id number]] View External Procedures - Pulmonary [ID [id number]] View External Imaging - X-ray [ID [id number]] documented in this encounterRegency Hospital [facility] West08-25-2023 Nurse Note* Viola Perez LPN - 03/11/2023 [...] 09/2011 Viola Perez LPN documented in this encounterRegency Hospital [facility]08-25-2023 History of Present illness Narrative* Caterina Dejesus [...] Chest pain 02/14/[address] Jacob in [facility]. Had a normal cardiac CTA in 2009 with no calcium. Chronic back pain greater than 3 months duration 04/02/2015 Chronic insomnia 03/12/2020 Ilya Calderón ([facility]) on melatonin. Chronic obstructive pulmonary disease (HCC) 04/25/2015 Chronic pain 01/14/2014 Constipation 02/12/2014 Dyer or callus 11/16/2015 Current use of proton pump inhibitor 10/11/2017 CVA (cerebral infarction) 01/14/2014 Diabetic eye exam ([facility]) 01/14/[address] Sanchez last done 03/02/2019 Diabetic foot ([facility]) 01/14/[address] Martins Extrapyramidal [...] 04/16/2014 Major depressive disorder, recurrent episode, moderate ([facility]) 04/25/2015 On disability Migraine without aura and without status migrainosus, not intractable 04/28/[address] Calderón Mixed hyperlipidemia 01/14/2014 Mixed incontinence urge and stress (male)(female) 07/25/2018 Morbid obesity due to excess calories ([facility]) 10/27/2016 Muscle weakness (generalized) 07/25/2018 [...] WNL 2D ECHO (EXEP) 01/14/2014 EF=65% Trival NV, TI, PI, LA enlarged. CARPAL TUNNEL Bilateral 08/28 and 09/25 COLONOSCOPY FLX DX W/COLLJ SPEC WHEN PFRMD 2011 [facility] Colonoscopy, no polyps repeat 10 yrs [...] entered by the nurse and reviewed by az Nursing Notes: Viola Perez LPN 03/11/2023 2:01 [...] preparation Patient requesting to have procedure at [facility] under conscious sedation. States she is unable to get a ride to have procedure done anywhere other than [place]. Chart forwarded to surgeon for review. Diagnoses: (Z12.11) Screening for colon cancer Consultation requested by Meagan Yusuf PA-C for an opinion regarding screening colonoscopy. Myfinal recommendations will be communicated back to the requesting physician by way of shared Medical record or letter to requesting physician via US mail. Caterina Dejesus PA-C documented in this encounterRegency Hospital [facility]08-25-2023 Miscellaneous Notes* Telephone Encounter - Meagan Yusuf PA-C - 03/11/2023 7:31 AM EDT Noted. Meagan Yusuf PA-C * Telephone Encounter - Maria Alejandra Braswell RN - 03/10/2023 6:33 PM EDT Spoke with patient. Given message from provider's office. Patient verbalizes understanding. She states she saw Dr. Christopher, Pulmonary @ [facility] and she says she is having a [...] Thanks. Meagan Yusuf PA-C documented in this encounterRegency Hospital [facility]08-14-2023 Miscellaneous Notes* Telephone Encounter - Aspen Bell [...] again. Aspen Bell LPN documented in this encounterRegency Hospital [facility] West08-14-2023 Instructions* Patient Instructions* Meagan Yusuf PA-C - 02/28/2023 2:12 PM EDT Please try contacting you lung specialist about the testing you had. documented in this encounterRegency Hospital [facility] West08-14-2023 History of Present illness Narrative* Meagan Yusuf [...] Chest pain 02/14/[address] Jacob in [facility]. Had a normal cardiac CTA in 2009 with no calcium. Chronic back pain greater than 3 months duration 04/02/2015 Chronic insomnia 03/12/2020 Ilya Calderón ([facility]) on melatonin. Chronic obstructive pulmonary disease (HCC) 04/25/2015 Chronic pain 01/14/2014 Constipation 02/12/2014 Dyer or callus 11/16/2015 Current use of proton pump inhibitor 10/11/2017 CVA (cerebral infarction) 01/14/2014 Diabetic eye exam ([facility]) 01/14/[address] Sanchez last done 03/02/2019 Diabetic foot ([facility]) 01/14/[address] Martins Extrapyramidal [...] 04/16/2014 Major depressive disorder, recurrent episode, moderate ([facility]) 04/25/2015 On disability Migraine without aura and without status migrainosus, not intractable 04/28/[address] Calderón Mixed hyperlipidemia 01/14/2014 Mixed incontinence urge and stress (male)(female) 07/25/2018 Morbid obesity due to excess calories ([facility]) 10/27/2016 Muscle weakness (generalized) 07/25/2018 [...] WNL 2D ECHO (EXEP) 01/14/2014 EF=65% Trival NV, TI, PI, LA enlarged. CARPAL TUNNEL Bilateral 08/28 and 09/25 COLONOSCOPY FLX DX W/COLLJ SPEC WHEN [facility]MD [facility] Colonoscopy, no polyps repeat 10 yrs [...] SURGERY Meagan Yusuf PA-C documented in this encounterRegency Hospital [facility]08-01-2023 Miscellaneous Notes* Telephone Encounter - Ana Cardoza [...] you. Ana Cardoza LPN documented in this encounterRegency Hospital [facility] West08-01-2023 History of Present illness Narrative* Aspen Bell LPN - 02/15/2023 8:48 AM EDT Scan on 02/15/2023 12:17 AM by Provider, ANTONI Pelayo: CT Scan documented in this encounterRegency Hospital [facility] West07-20-2023 Miscellaneous Notes* Telephone Encounter - Kelsie Mercado - 02/03/2023 1:28 PM EDT Images from the original note were not included. Patent called requesting results. Dennys Pool to Pernell Rodriguez 02/02/23 4:06 PM Your circulation appears normal Dennys Pool DPM This [employer] message has not been read. Message above was read to patient. Kelsie Mercado MA documented in this encounterRegency Hospital [facility] West06-28-2023 History of Present illness Narrative* Dennys Pool [...] Pain Kim Kiran LPN documented in this encounterRegency Hospital [facility] West06-28-2023 Instructions* Patient Instructions* Dennys Pool - 01/12/2023 [...] (or decreased sensation in your feet) a infusion nurse should always cut your toenails. Be Careful [...] Go to your health care provider or infusion nurse to treat these conditions. documented in this encounterRegency Hospital [facility] West06-20-2023 Instructions* Patient Instructions* Alize Wilcox OD - 01/04/2023 3:37 PM EDT Use erythromycin ointment as directed (twice daily x 1 week in right eye) Use warm compresses daily on both eyes Use diluted baby shampoo or Systane/Ocusoft lid wipes to clean eyelashes/eyelids daily documented in this encounterRegency Hospital [facility] West06-20-2023 History of Present illness Narrative* Alize Wilcox [...] continue care with primary care doctor and/or security officers and guards to maintain optimum levels as they are [...] 04, 2023 3:34 PM documented in this encounterRegency Hospital [facility]05-04-2023 Miscellaneous Notes* Telephone Encounter - Caterina Salazar [...] you. Caterina Salazar RN documented in this encounterRegency Hospital [facility]04-07-2023 Miscellaneous Notes* Telephone Encounter - Ana Cardoza LPN - 10/22/2022 10:10 AM EDT Pt calling for lab results. Okay to leave a message Ana Cardoza LPN documented in this encounterRegency Hospital [facility] West04-06-2023 Instructions* Patient Instructions* Meagan Yusuf PA-C - 10/21/2022 12:34 PM EDT Take a Vitamin B complex (with atleast 30mg of B6) 3 times a day for nocturnal leg cramps. Discuss leg cramps with Dr. Calderón per Dr. Bradford. Aquaphor ointment for dryness (get store brand). documented in this encounterRegency Hospital [facility] West04-06-2023 History of Present illness Narrative* Meagan Yusuf [...] Chest pain 02/14/[address] Jacob in [facility]. Had a normal cardiac CTA in 2009 with no calcium. Chronic back pain greater than 3 months duration 04/02/2015 Chronic insomnia 03/12/2020 Ilya Calderón ([facility]) on melatonin. Chronic obstructive pulmonary disease (HCC) 04/25/2015 Chronic pain 01/14/2014 Constipation 02/12/2014 Dyer or callus 11/16/2015 Current use of proton pump inhibitor 10/11/2017 CVA (cerebral infarction) 01/14/2014 Diabetic eye exam ([facility]) 01/14/[address] Sanchez last done 03/02/2019 Diabetic foot ([facility]) 01/14/[address] Martins Extrapyramidal [...] disease (HCC) 11/24/2020 Tardive dyskinesia 03/12/2020 Ilya Caldernó ([facility]) Type 2 diabetes mellitus without complication (HCC) 04/25/2015 Urinary incontinence 07/08/2017 Well adult exam 10/27/2016 last done: 06/09/2022 Previous Surgical History PAST SURGICAL HISTORY Procedure Laterality Date *STRESS TEST PC 05/06/2016 WNL 2D ECHO (EXEP) 01/14/2014 EF=65% Trival NV, TI, PI, LA enlarged. CARPAL TUNNEL Bilateral [...] which included preparing to see the patient, [id number] patient care, completing clinical documentation, obtaining and/or reviewing separately obtained history, performing a medically appropriate examination, counseling and educating the pat ient/family/caregiver, communicating with other HCPs (not separately reported), and communicating results to the patient/family/caregiver. documented in this encounterRegency Hospital [facility]04-06-2023 Miscellaneous Notes* Telephone Encounter - Anaameya Cardoza [...] you. Ana Cardoza LPN documented in this encounterRegency Hospital [facility]03-20-2023 History of Present illness Narrative* Azam Fam [...] Chest pain 02/14/[address] Jacob in [facility]. Had a normal cardiac CTA in 2009 with no calcium. Chronic back pain greater than 3 months duration 04/02/2015 Chronic insomnia 03/12/2020 Ilya Calderón ([facility]) on melatonin. Chronic obstructive pulmonary disease ([facility]) 04/25/2015 Chronic pain 01/14/2014 Constipation 02/12/2014 Dyer or callus 11/16/2015 Current use of proton pump inhibitor 10/11/2017 CVA (cerebral infarction) 01/14/2014 Diabetic eye exam ([facility]) 01/14/[address] Sanchez last done 03/02/2019 Diabetic foot ([facility]) 01/14/[address] Martins Extrapyramidal [...] 04/16/2014 Major depressive disorder, recurrent episode, moderate ([facility]) 04/25/2015 On disability Migraine without aura and without status migrainosus, not intractable 04/28/[address] Calderón Mixed hyperlipidemia 01/14/2014 Mixed incontinence urge and stress (male)(female) 07/25/2018 Morbid obesity due to excess calories ([facility]) 10/27/2016 Muscle weakness (generalized) 07/25/2018 [...] WNL 2D ECHO (EXEP) 01/14/2014 EF=65% Trival NV, TI, PI, LA enlarged. CARPAL TUNNEL Bilateral 08/28 and 09/25 COLONOSCOPY FLX DX W/COLLJ SPEC WHEN PFRMD 2011 [facility] Colonoscopy, no polyps repeat 10 yrs [...] Past Histories independently gathered by the clinical technical support representative and the remaining scribed note accurately describes [...] PM. Carol Armenta Ma documented in this encounterRegency Hospital [facility]03-20-2023 Miscellaneous Notes* Telephone Encounter - Azam Fam [...] Postmenopausal Protocols used: Rash or Redness - [id number] documented in this encounterRegency Hospital [facility] West03-18-2023 History of Present illness Narrative* Rajani Granger MA - 10/02/2022 9:14 AM EDT Scan on 09/29/2022 1:13 PM by External Provider: Consultation - Neurology Rajani Granger MA documented in this encounterRegency Hospital [facility] West03-03-2023 History of Present illness Narrative* Rajani Granger MA - 09/17/2022 2:43 PM EST Scan on 09/12/2022 11:23 AM by External Provider: Consultation - Emergency Medicine Rajani Granger MA documented in this encounterRegency Hospital [facility]03-02-2023 Miscellaneous Notes* Telephone Encounter - Ladi Khan [...] REPLY TO THIS MESSAGE. documented in this [facility]01-19-2023 Instructions* Patient Instructions* Dennys Pool - [...] (or decreased sensation in your feet) a infusion nurse should always cut your toenails. Be Careful [...] Go to your health care provider or infusion nurse to treat these conditions. documented in this encounterRegency Hospital [facility] West01-19-2023 History of Present illness Narrative* Dennys Pool [...] toe nail cracked today. documented in this encounterRegency Hospital [facility] West01-11-2023 Miscellaneous Notes* Telephone Encounter - JUDIE Goldstein - 07/28/2022 11:56 AM EST [facility] Transportation resource list mailed to patient home. * Telephone Encounter - JUDIE Goldstein - 07/23/2022 3:09 PM EST Sw received message that patient had called in to office and was having to cancel her upcoming eye appt due to no test case developer to assist with ride to appts. Aaron left message for patient that she would reach out to patient next week and discuss below test case developerdigital strategist senior manager from [facility], and remind [facility]. * Telephone Encounter - JUDIE Goldstein - 07/23/2022 11:24 AM EST Aaron left patient message to return Sw call. Aaron following up with patient regarding below test case developerdigital strategist senior manager. * Telephone Encounter - JUDIE Goldstein - 07/23/2022 9:27 AM EST Aaron spoke with Steven,[facility], in regards to patient interest in test case developer. Steven notes that patient test case developer was one the had left the agency. There is a wait list at this time forcase management services. Aaron noted that patient had expressed that she had benefited from test case developer in the past. Was beneficial to patient regarding transportation and coordination of mental health and medical appts. Steven notes that she will make note of patient interest in being assigned a test case developer, and will work with counseling services to make sure patient is on wait list. * Telephone Encounter - JUDIE Goldstein - 07/21/2022 9:54 AM EST Steven-[facility] left Aaron a message asking that Sw refax consent for release. Steven notes that release came through a little to dark and was hard to read. Aaron faxed release to [phone]. * Telephone Encounter - JUDIE Goldstein - 07/09/2022 8:56 AM EST Aaron called [facility] to check and see if they received consent for release that Aaron faxedon 07/07/22. Steven-Medical Records noted that she did not see it scanned to chart. 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 AARON notes she will be on vacation next week and will call to check on release when she is back in the office. Aaron interested in status of patient and having test case developer. * Telephone Encounter - JUDIE Goldstein - 07/07/2022 12:37 PM EST Aaron received consent for release to be able to coordinate patient services with [facility]. Aaron will fax consent form to [facility] fax#[phone]. documented in this encounterRegency Hospital [facility]01-10-2023 Miscellaneous Notes* Telephone Encounter - JUDIE Goldstein - 07/27/2022 2:59 PM EST See Sw note 07/07/22. Sw spoke to patient and let her know that Sw has spoken with [facility] and noted that patient had expressed to this SW interest in being assigned to a test case developer, there is a wait list for case management. Aaron reviewed with patient using her insurance-[employer] for rides to medical appts. Sw noted [...] Please call and advise. documented in this encounterRegency Hospital [facility] West12-29-2022 History of Present illness Narrative* Meagan Yusuf PA-C - 07/15/2022 1:54 PM EST Chief Complaint Patient presents with: Recheck: Patient is here for follow up on legs cramps HPI Pernell Rodriguez is a 62 year old female who presents here today for Above Complaints.. Patient was seen for physical back in [facility] and had complaints of leg cramp. Patient [...] Chest pain 02/14/[address] Jacob in [facility]. Had a normal cardiac CTA in 2009 with no calcium. Chronic back pain greater than 3 months duration 04/02/2015 Chronic insomnia 03/12/2020 Ilya Calderón ([facility]) on melatonin. Chronic obstructive pulmonary disease (HCC) 04/25/2015 Chronic pain 01/14/2014 Constipation 02/12/2014 Dyer or callus 11/16/2015 Current use of proton pump inhibitor 10/11/2017 CVA (cerebral infarction) 01/14/2014 Diabetic eye exam ([facility]) 01/14/[address] Sanchez last done 03/02/2019 Diabetic foot ([facility]) 01/14/[address] Martins Extrapyramidal [...] 04/16/2014 Major depressive disorder, recurrent episode, moderate ([facility]) 04/25/2015 On disability Migraine without aura and without status migrainosus, not intractable 04/28/[address] Calderón Mixed hyperlipidemia 01/14/2014 Mixed incontinence urge and stress (male)(female) 07/25/2018 Morbid obesity due to excess calories ([facility]) 10/27/2016 Muscle weakness (generalized) 07/25/2018 [...] WNL 2D ECHO (EXEP) 01/14/2014 EF=65% Trival NV, TI, PI, LA enlarged. CARPAL TUNNEL Bilateral 08/28 and 09/25 COLONOSCOPY FLX DX W/COLLJ SPEC WHEN PFRMD 2011 [facility] Colonoscopy, no polyps repeat 10 yrs [...] month. Meagan Yusuf PA-C documented in this encounterRegency Hospital [facility] West12-29-2022 Miscellaneous Notes* Telephone Encounter - Rjaani Granger MA - 07/15/2022 1:04 PM EST Paperwork was completed twice 06/14/2022 and 06/15/2022 and faxed. Paperwork was in scanning. Refaxed. Rajani Granger MA * Telephone Encounter - Caterina Salazar RN - 07/15/2022 9:58 AM EST [employer] called and reports they had sent over a fax for incontinence supplies. Had herre-fax them to Megaan Yusuf NP at [phone]. Please fill out and send back. documented in this encounterRegency Hospital [facility]12-02-2022 Miscellaneous Notes* Telephone Encounter - JUDIE Goldstein - 06/18/2022 11:11 AM EST Sw spoke with patient regarding test case developer need. Patient reports that she used to have a test case developer through [facility]. Patient notes that her test case developer that she has had recently left the agency and now she does not have test case developer. Sw notes that for this SW to be able to speak with [facility] in regards to test case developer need, patient would have to sign consent form.Sw will mail out HIPPA/Consent form to share with [facility] regarding patient needs. Patient notes that test case developer would always assist patient with rides or coordinating rides to healthcare appts. Patient also notes that she has a nurse coming out to see her on 06/24/22 from [facility] for a home assessment. Patient is going to ask the nurse for any assistance that could be provided to repairher back steps/add safety equipment to her home. Patient notes that she will ask [facility] test case developer about transportation assistance as well. Patient notes [...] patient to return SW call to discuss test case developerclient delivery manager needs for help with appts. documented in this encounterRegency Hospital [facility]11-28-2022 Miscellaneous Notes* Telephone Encounter - Homer Bradford [...] appointment on 06/09/2022 be sent in to [facility]. Reviewed OV notes with no medication [...] about. Shanti Monreal RN documented in this encounterRegency Hospital [facility] West11-23-2022 History of Present illness Narrative* Homer Bradford [...] appointments due to not having a social services aide working with her. Past medical history, appointments, medications, allergies reviewed. Previous Medical History PAST MEDICAL HISTORY Diagnosis Date ASHD (arteriosclerotic heart disease) 10/25/[address] Goins Bilateral leg edema 04/25/2015 Bipolar affective disorder (HCC) 04/25/[address] Colindres Chest pain 02/14/[address] Jacob in [facility]. Had a normal cardiac CTA in 2009 with no calcium. Chronic back pain greater than 3 months duration 04/02/2015 Chronic insomnia 03/12/2020 Ilya Calderón ([facility]) on melatonin. Chronic obstructive pulmonary disease (HCC) 04/25/2015 Chronic pain 01/14/2014 Constipation 02/12/2014 Dyer or callus 11/16/2015 Current use of proton pump inhibitor 10/11/2017 CVA (cerebral infarction) 01/14/2014 Diabetic eye exam ([facility]) 01/14/[address] Sanchez last done 03/02/2019 Diabetic foot ([facility]) 01/14/[address] Martins Extrapyramidal [...] 04/16/2014 Major depressive disorder, recurrent episode, moderate ([facility]) 04/25/2015 On disability Migraine without [...] WNL 2D ECHO (EXEP) 01/14/2014 EF=65% Trival NV, TI, PI, LA enlarged. CARPAL TUNNEL Bilateral 08/28 and 09/25 COLONOSCOPY FLX DX W/COLLJ SPEC WHEN PFRMD 2011 [facility] Colonoscopy, no polyps repeat 10 yrs [...] symmetric. Sensation to light touch and crainal [id number] intact.. Health Maintenance List COVID-19 VACCINE(1) Never [...] Abs Lymph 1.00 - 4.00 k/uL 2.67 Quitman% % 9.2 Abs Quitman <0.87 k/uL 0.79 Eosin% % 2.8 Abs [...] I addressed this with the patient's social services aide and was never accomplished. 4. Diabetic foot [...] - ICD9: 496, ICD10: J44.[address] [facility] Pulm Dr. Christopher - PRIMARY CARE SOCIAL WORK CONSULT 12. ASHD (arteriosclerotic heart disease) - ICD9: 414.00, ICD10: I25.10 - management per Cardio: Fish PAPER STRIPPER - PRIMARY CARE SOCIAL WORK CONSULT - [...] - management per renal: Dr. Bettencourt - [facility] SOCIAL WORK CONSULT - CBC + DIFF 16. History of CVA (cerebrovascular accident) - ICD9: V12.54, ICD10: Z86.73 - no new issues or changes in Tx. 17. Mixed incontinence urge and stress (male)(female) - ICD9: 788.33, ICD10: N39.46 Management per Urology: Dr. Alba - [facility] SOCIAL WORK CONSULT - MEDICAL SUPPLY [...] - PRIMARY CARE SOCIAL WORK CONSULT 22. Dyer or callus - ICD9: 700, ICD10: L84 [...] routine Homer Bradford MD documented in this encounterRegency Hospital [facility]10-19-2022 Miscellaneous Notes* Telephone Encounter - Mary Ann [...] Mary Ann Rodriguez LPN documented in this encounterRegency Hospital [facility]10-17-2022 Miscellaneous Notes* Telephone Encounter - Rajani Granger [...] receive it please call her back at [phone]. documented in this encounterRegency Hospital [facility] West08-01-2022 Miscellaneous Notes* Telephone Encounter - Homer Bradford [...] advise patient her furosamide comes from her operations expert PAPER STRIPPER. * Telephone Encounter - Mary Ann Rodriguez [...] Mary Ann Rodriguez LPN documented in this encounterRegency Hospital [facility] West07-29-2022 History of Present illness Narrative* Dennys Pool [...] manger. Kim Kiran LPN documented in this encounterRegency Hospital [facility] West07-29-2022 Instructions* Patient Instructions* Dennys Pool - 02/12/2022 2:39 PM EDT Thank you for choosing the [facility] for your acute care needs. [...] physician or booking an appointment, please call [phone] or speak with any Patient Electricity Trader. Hours: Tuesday through Tuesday 7:30 am to [...] (or decreased sensation in your feet) a infusion nurse should always cut your toenails. Be Careful [...] Go to your health care provider or infusion nurse to treat these conditions. documented in this encounterRegency Hospital [facility] West07-22-2022 Miscellaneous Notes* Telephone Encounter - Aspen Bell LPN - 02/05/2022 10:50 AM EDT Pt notified of same. Apsen Bell LPN * Telephone Encounter - Meagan Yusuf PA-C - 02/05/2022 9:49 AM EDT Potassium is back in normal range now. Meagan Yusuf PA-C documented in this encounterRegency Hospital [facility] West06-20-2022 Miscellaneous Notes* Telephone Encounter - Rodger Walters [...] - 12/15/2021 2:53 PM EDT Blanca PRIETOwith [facility] calls to let provider know that outpatient [...] time. Shanti Monreal RN documented in this encounterRegency Hospital [facility] West06-13-2022 Miscellaneous Notes* Telephone Encounter - Mary Ann Rodriguez LPN - 12/28/2021 4:19 PM EDT Patient returned call and went over results, notes from Meagan MAY with repeating several times until she understood. Aware rx to pharmacy. Patient said it takes [facility] about 4 days to get rxto her. [...] levels in 10-14 days. documented in this encounterRegency Hospital Cleveland West06-07-2022 Miscellaneous Notes* Telephone Encounter - Aspen Bell [...] potassium. Please advise BASIC METABOLIC PNL Order: [id number] Status: Final result Visible to patient: Yes [...] 97 CM 130 High CM Comment: The British Diabetes Association (ADA) provides guidance for cutoff [...] Standards of Medical Care in Diabetes 2016, British Diabetes Association. Diabetes Care. 2016.39(Suppl 1). BUN [...] accurately reflect actual GFR. Resulting Agency CCM [facility] CCM documented in this encounterRegency Hospital Cleveland West06-06-2022 Hospital Discharge instructions Patient Education 12/21/2021 17:06:55 [...] large amounts of blood in stool Seizure [id number] [employer]. [address] [place] [address]. All rights reserved. This information is not intended as a substitute for professional medical care. Always follow yourhealthcare professional's instructions. Follow Up Care 12/21/2021 15:38:28 With:JOVANA CHINO MD Address: [address] [place] [address]- When:2-4 days With:HOMER BRADFORD MD Address: [address] [place] [address]- When:2-4 days [facility] 06-01-2022 Miscellaneous Notes* Telephone Encounter - Erwin Harvey RN - 12/16/2021 11:41 AM EDT Patient returned call and given provider's message below with verbalized understanding. Faxed referral, lab results, ov notes to Dr. Bettencourt - fax # [phone]. Patient reports she will need to callher [...] to repeat. Order placed. documented in this encounterRegency Hospital [facility] West05-27-2022 Miscellaneous Notes* Telephone Encounter - Carlota Baez LPN - 12/11/2021 4:58 PM EDT printed order from [facility] completed and faxed to number given. * Telephone Encounter - Erwin Harvey RN - 12/11/2021 2:41 PM EDT Jessica- radiology [facility]- asking Dr. Dodd to please send new order for the MBSS with speech therapy. Please fax to [phone] * Telephone Encounter - Brianne Max LPN - 12/11/2021 2:33 PM EDT Updated information given to Radiology. Brianne Max LPN * Telephone Encounter - Dick Dodd MD - 12/11/2021 12:51 PM EDT Yes. MBSS with speech therapy. * Telephone Encounter - Caterina Salazar RN - 12/11/2021 12:37 PM EDT Jessica from [facility] Radiology called and asked if provider wanted to a barium swallow done which is done with ST. documented in this encounterRegency Hospital [facility] West05-23-2022 Miscellaneous Notes* Telephone Encounter - Mary Ann [...] 2 weeks. Order placed. documented in this encounterRegency Hospital [facility] West05-18-2022 Miscellaneous Notes* Telephone Encounter - Rodger Walters Ma - 12/02/2021 1:45 PM EDT Pt notified via [employer]. * Telephone Encounter - Priyanka Chavez RN [...] ( UTI's) meds below were [place] by [place] [facility] Aldactone Metformine Hyoscyamine Omeprazole Signed Prescriptions [...] you. Priyanka Chavez RN documented in this encounterRegency Hospital [facility] West05-13-2022 History of Present illness Narrative* Homer Bradford [...] overall doing okay. Was just released from [facility] after having pneumonia and not being able to walk. Working on getting back into her speciality providers. These were reviewed with her case management rn whowas with her during appt today. Past medical history, appointments, medications, allergies reviewed. Previous Medical History PAST MEDICAL HISTORY Diagnosis Date ASHD (arteriosclerotic heart disease) 10/25/[address] Goins Bilateral leg edema 04/25/2015 Bipolar affective disorder (HCC) 04/25/[address] Colindres Chest pain 02/14/[address] Jacob in [facility]. Had a normal cardiac CTA in 2009 with no calcium. Chronic back pain greater than 3 months duration 04/02/2015 Chronic insomnia 03/12/2020 Ilya Calderón ([facility]) on melatonin. Chronic obstructive pulmonary disease (HCC) 04/25/2015 Chronic pain 01/14/2014 Constipation 02/12/2014 Dyer or callus 11/16/2015 Current use of proton pump inhibitor 10/11/2017 CVA (cerebral infarction) 01/14/2014 Diabetic eye exam ([facility]) 01/14/[address] Sanchez last done 03/02/2019 Diabetic foot ([facility]) 01/14/[address] Martins Extrapyramidal [...] 04/16/2014 Major depressive disorder, recurrent episode, moderate ([facility]) 04/25/2015 On disability Migraine without aura and without status migrainosus, not intractable 04/28/[address] Calderón Mixed hyperlipidemia 01/14/2014 Mixed incontinence urge and stress (male)(female) 07/25/2018 Morbid obesity due to excess calories ([facility]) 10/27/2016 Muscle weakness (generalized) 07/25/2018 [...] WNL 2D ECHO (EXEP) 01/14/2014 EF=65% Trival NV, TI, PI, LA enlarged. CARPAL TUNNEL Bilateral [...] Abs Lymph 1.00 - 4.00 k/uL 2.67 Quitman% % 9.2 Abs Quitman <0.87 k/uL 0.79 Eosin% % 2.8 Abs [...] complication, with long-term current use of insulin ([facility]) - ICD9: 250.00, V58.67, ICD10: [...] PE Homer Bradford MD documented in this encounterRegency Hospital [facility] West05-05-2022 Miscellaneous Notes* Telephone Encounter - Carlota Baez LPN - 11/19/2021 4:15 PM EDT FAXED PRINTED ORDER TO [facility] FOR THEM TO CALL PT TO ARRANGE. * Telephone Encounter - Priyanka Duvall Pss - 11/19/2021 1:51 PM EDT Nicolasa and patient was calling to arrange swallow evaluation that was ordered on 10/14/[address] Dodd. Patient does not wish to travel and would like this order sent to [facility] please.They also would like Nicolasa contacted to schedule this and her number has been added to the account. Could we please forward that information to [facility]. documented in this encounterRegency Hospital [facility] West04-05-2022 Miscellaneous Notes* Telephone Encounter - Amanda Correia Ma - 10/20/2021 1:55 PM EDT Left detailed message on nicolasa confidnetial Amadna Correia Ma * Telephone Encounter - Homer Bradford MD - 10/20/2021 12:22 PM EDT Script for glucose meter ready to be faxed to [employer]. Advise patient and case management rn Nicolasa that Pernell's respiratory disease is managed per her vocational rehabilitation specialist Dr. Wilfredo Christopher and need to contact him for the nebulizer order. * Telephone Encounter - Hannah Kwon LPN - 10/20/2021 11:25 AM EDT Pt was in [facility] for respiratory failure, was then sent to [facility] [place] until 10/07/21. Pt on line as well as case management rn Nicolasa requesting an order for a nebulizer & a glucometer, pending. Pt will use [employer]. Hannah Kwon LPN documented in this encounterRegency Hospital [facility] West04-04-2022 Miscellaneous Notes* Telephone Encounter - Carlota Baez LPN - 10/19/2021 10:47 AM EDT When pt see Dr. Alcocer 10/14/21 he completed rx for grab bars and toilet seat. They were faxed to [facility]. rec'd fax from [employer] saying they do not provide these. Message left to pt with this info and requested return call to which [employer] company she would like them sent to now. documented in this encounterRegency Hospital [facility] West04-01-2022 Miscellaneous Notes* Telephone Encounter - Aspen Bell [...] to just get generic form of OTC [place] nasal spray. * Telephone Encounter - Umm York RN - 10/15/2021 1:38 PM EDT Yanna from [facility] calls and states that patient's insurance will not cover sodium chloride 0.9% solution. Yanna states that insurance will cover sodium chloride 1% solution 30 mL bottle. Yanna asking if provider wants to change prescription to this? Please review and advise, Umm York, RN documented in this encounterRegency Hospital Cleveland West03-31-2022 Miscellaneous Notes* Telephone Encounter - Ana Cardoza LPN - 10/15/2021 11:40 AM EDT Yanna with [facility] calling to request for pen needles [...] you. Ana Cardoza LPN documented in this encounterRegency Hospital [facility] West03-30-2022 History of Present illness Narrative* Dick Dodd MD - 10/14/2021 4:37 PM EDT This note was created using [employer]. Subjective Pernell Rodriguez is a 61 year old female. PCP Homer Bradford MD. 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 [facility] with limited planning and no prescriptions. She was admitted 09/07/[address] [facility] on 08/25 for bilateral pneumonia, respiratory failure with hypoxia, metabolic encephalopathy, STEVEN on CKD, atrial fibrillation, bipolar disorder, and diabetes mellitus. She was much better and off oxygen. She was on thickened liquids at the [facility] but since being back home, she was back on regular food. She saw pulmonary before her discharge from the [place] and her respiratory status was assessed to have improved. She needed DME due to ongoing general weaknessand limited mobility in the home. No home health or home PT was ordered. 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 Review of Systems Constitutional: Positive for fatigue. [...] Major Depressive Disorder, Recurrent Episode, Moderate (Hcc) Dyer Or Callus Nodule of Left Lung Morbid [...] ICD10: R53.81 - I'll suggest HH, PT, SPECIAL EDUCATION SCIENCE TEACHER be arranged by PCP. - EXTRA WIDE/HEAVY [...] E11.9, Z79.4 The [place] to [place]. 7. Gastroesophageal reflux disease without esophagitis - ICD9: 530.81, ICD10: K21.9 8. Chronic obstructive pulmonary disease, unspecified COPD type (HCC) - ICD9: 496, ICD10: J44.9 9. Irritable bowel syndrome with both constipation and diarrhea - ICD9: 564.1, ICD10: K58.2 Medication list from [facility] was reviewed. Discharge summary from [facility] and pulmonary follow up report were reviewed. During this patient visit I have spent approximately 30 minutes out of 40 in counseling regarding medications and coordinating care. Follow up with PCP November 27 as scheduled. Dick Dodd MD documented in this encounterRegency Hospital [facility] West05-06-2021 History of Present illness Narrative* Karen Rodriguez, [...] 20, 2020 4:06 PM documented in this encounterRegency Hospital [facility] West12-22-2017 History of Past illness Narrative* Problem Noted Date Resolved Date Urinary incontinence 07/08/2017 11/28/2021 Overview: Seeing Dr. Anjali Benjamin adult exam 10/27/2016 10/15/2021 Overview: last done: 05/29/2021 documented as of this encounter (statuses as of 11/29/2021) [facility]12-22-2017 History of Past illness Narrative* Problem Noted Date Resolved Date Urinary incontinence 07/08/2017 11/28/2021 Overview: Seeing Dr. Anjali Benjamin adult exam 10/27/2016 10/15/2021 Overview: last done: 05/29/2021 documented as of this encounter (statuses as of 12/02/2021) [facility] History of Past illness Narrative* Problem Noted Date Resolved Date Urinary incontinence 07/08/2017 11/28/2021 Overview: Seeing Dr. Anjali Benjamin adult exam 10/27/2016 10/15/2021 Overview: last done: 05/29/2021 documented as of this encounter (statuses as of 12/07/2021) [facility] History of Past illness Narrative* Problem Noted Date Resolved Date Urinary incontinence 07/08/2017 11/28/2021 Overview: Seeing Dr. Anjali Benjamin adult exam 10/27/2016 10/15/2021 Overview: last done: 05/29/2021 documented as of this encounter (statuses as of 12/11/2021) [facility] History of Past illness Narrative* Problem Noted Date Resolved Date Urinary incontinence 07/08/2017 11/28/2021 Overview: Seeing Dr. Anjali Benjamin adult exam 10/27/2016 10/15/2021 Overview: last done: 05/29/2021 documented as of this encounter (statuses as of 12/16/2021) [facility] History of Past illness Narrative* Problem Noted Date Resolved Date Urinary incontinence 07/08/2017 11/28/2021 Overview: Seeing Dr. Anjali Benjamin adult exam 10/27/2016 10/15/2021 Overview: last done: 05/29/2021 documented as of this encounter (statuses as of 12/22/2021) [facility] History of Past illness Narrative* Problem Noted Date Resolved Date Urinary incontinence 07/08/2017 11/28/2021 Overview: Seeing Dr. Anjali Benjamin adult exam 10/27/2016 10/15/2021 Overview: last done: 05/29/2021 documented as of this encounter (statuses as of 12/28/2021) [facility] History of Past illness Narrative* Problem Noted Date Resolved Date Urinary incontinence 07/08/2017 11/28/2021 Overview: Seeing Dr. Anjali Benjamin adult exam 10/27/2016 10/15/2021 Overview: last done: 05/29/2021 documented as of this encounter (statuses as of 01/04/2022) [facility] History of Past illness Narrative* Problem Noted Date Resolved Date Urinary incontinence 07/08/2017 11/28/2021 Overview: Seeing Dr. Anjali Benjamin adult exam 10/27/2016 10/15/2021 Overview: last done: 05/29/2021 documented as of this encounter (statuses as of 02/05/2022) [facility] History of Past illness Narrative* Problem Noted Date Resolved Date Urinary incontinence 07/08/2017 11/28/2021 Overview: Seeing Dr. Anjali Benjamin adult exam 10/27/2016 10/15/2021 Overview: last done: 05/29/2021 documented as of this encounter (statuses as of 02/13/2022) [facility] History of Past illness Narrative* Problem Noted Date Resolved Date Urinary incontinence 07/08/2017 11/28/2021 Overview: Seeing Dr. Anjali Benjamin adult exam 10/27/2016 10/15/2021 Overview: last done: 05/29/2021 documented as of this encounter (statuses as of 02/15/2022) [facility] History of Past illness Narrative* Problem Noted Date Resolved Date Urinary incontinence 07/08/2017 11/28/2021 Overview: Seeing Dr. Anjali Benjamin adult exam 10/27/2016 10/15/2021 Overview: last done: 05/29/2021 documented as of this encounter (statuses as of 05/03/2022) [facility] History of Past illness Narrative* Problem Noted Date Resolved Date Urinary incontinence 07/08/2017 11/28/2021 Overview: Seeing Dr. Alba Well adult exam 10/27/2016 10/15/2021 Overview: last done: 05/29/2021 documented as of this encounter (statuses as of 05/05/2022) [facility] History of Past illness Narrative* Problem Noted Date Resolved Date Urinary incontinence 07/08/2017 11/28/2021 Overview: Seeing Dr. Alba documented as of this encounter (statuses as of 06/13/2022) [facility] History of Past illness Narrative* Problem Noted Date Resolved Date Urinary incontinence 07/08/2017 11/28/2021 Overview: Seeing Dr. Alba documented as of this encounter (statuses as of 06/14/2022) [facility] of Past illness Narrative* Problem Noted Date Resolved Date Urinary incontinence 07/08/2017 11/28/2021 Overview: Seeing Dr. Alba documented as of this encounter (statuses as of 06/23/2022) [facility] of Past illness Narrative* Problem Noted Date Resolved Date Urinary incontinence 07/08/2017 11/28/2021 Overview: Seeing Dr. Alba documented as of this encounter (statuses as of 07/21/2022) [facility] of Past illness Narrative* Problem Noted Date Resolved Date Urinary incontinence 07/08/2017 11/28/2021 Overview: Seeing Dr. Alba documented as of this encounter (statuses as of 07/21/2022) [facility] of Past illness Narrative* Problem Noted Date Resolved Date Urinary incontinence 07/08/2017 11/28/2021 Overview: Seeing Dr. Alba documented as of this encounter (statuses as of 07/28/2022) [facility] of Past illness Narrative* Problem Noted Date Resolved Date Urinary incontinence 07/08/2017 11/28/2021 Overview: Seeing Dr. Alba documented as of this encounter (statuses as of 08/02/2022) [facility] of Past illness Narrative* Problem Noted Date Resolved Date Urinary incontinence 07/08/2017 11/28/2021 Overview: Seeing Dr. Alba documented as of this encounter (statuses as of 08/05/2022) [facility] of Past illness Narrative* Problem Noted Date Resolved Date Urinary incontinence 07/08/2017 11/28/2021 Overview: Seeing Dr. Alba documented as of this encounter (statuses as of 08/16/2022) [facility] of Past illness Narrative* Problem Noted Date Resolved Date Urinary incontinence 07/08/2017 11/28/2021 Overview: Seeing Dr. Alba documented as of this encounter (statuses as of 09/16/2022) [facility] of Past illness Narrative* Problem Noted Date Resolved Date Urinary incontinence 07/08/2017 11/28/2021 Overview: Seeing Dr. Alba documented as of this encounter (statuses as of 09/17/2022) [facility] of Past illness Narrative* Problem Noted Date Resolved Date Urinary incontinence 07/08/2017 11/28/2021 Overview: Seeing Dr. Alba documented as of this encounter (statuses as of 10/03/2022) [facility] of Past illness Narrative* Problem Noted Date Resolved Date Urinary incontinence 07/08/2017 11/28/2021 Overview: Seeing Dr. Alba documented as of this encounter (statuses as of 10/05/2022) [facility]12-22-2017 History of Past illness Narrative* Problem Noted Date Resolved Date Urinary incontinence 07/08/2017 11/28/2021 Overview: Seeing Dr. Alba documented as of this encounter (statuses as of 10/05/2022) [facility]12-22-2017 History of Past illness Narrative* Problem Noted Date Resolved Date Urinary incontinence 07/08/2017 11/28/2021 Overview: Seeing Dr. Alba documented as of this encounter (statuses as of 10/21/2022) [facility]12-22-2017 History of Past illness Narrative* Problem Noted Date Resolved Date Urinary incontinence 07/08/2017 11/28/2021 Overview: Seeing Dr. Alba documented as of this encounter (statuses as of 10/21/2022) [facility]12-22-2017 History of Past illness Narrative* Problem Noted Date Resolved Date Urinary incontinence 07/08/2017 11/28/2021 Overview: Seeing Dr. Alba documented as of this encounter (statuses as of 10/22/2022) [facility]-22-2017 History of Past illness Narrative* Problem Noted Date Resolved Date Urinary incontinence 07/08/2017 11/28/2021 Overview: Seeing Dr. Alba documented as of this encounter (statuses as of 11/18/2022) [facility]-22-2017 History of Past illness Narrative* Problem Noted Date Resolved Date Urinary incontinence 07/08/2017 11/28/2021 Overview: Seeing Dr. Alba documented as of this encounter (statuses as of 01/05/2023) [facility]-22-2017 History of Past illness Narrative* Problem Noted Date Resolved Date Urinary incontinence 07/08/2017 11/28/2021 Overview: Seeing Dr. Alba documented as of this encounter (statuses as of 01/12/2023) [facility]-22-2017 History of Past illness Narrative* Problem Noted Date Diagnosed Date Resolved Date Urinary incontinence 07/08/2017 Overview: Seeing Dr. Alba documented as of this encounter (statuses as of 02/03/2023) [facility]-22-2017 History of Past illness Narrative* Problem Noted Date Diagnosed Date Resolved Date Urinary incontinence 07/08/2017 Overview: Seeing Dr. Alba documented as of this encounter (statuses as of 02/15/2023) [facility]12-22-2017 History of Past illness Narrative* Problem Noted Date Diagnosed Date Resolved Date Urinary incontinence 07/08/2017 Overview: Seeing Dr. Alba documented as of this encounter (statuses as of 02/20/2023) [facility]12-22-2017 History of Past illness Narrative* Problem Noted Date Diagnosed Date Resolved Date Urinary incontinence 07/08/2017 Overview: Seeing Dr. Alba documented as of this encounter (statuses as of 03/01/2023) [facility]-22[facility]2017 History of Past illness Narrative* Problem Noted Date Diagnosed Date Resolved Date Urinary incontinence 07/08/2017 022 Overview: Seeing Dr. Alba documented as of this encounter (statuses as of 03/01/2023) [facility]-22-2017 History of Past illness Narrative* Problem Noted Date Diagnosed Date Resolved Date Urinary incontinence 07/08/2017 Overview: Seeing Dr. Alba documented as of this encounter (statuses as of 03/11/2023) [facility]-22-2017 History of Past illness Narrative* Problem Noted Date Diagnosed Date Resolved Date Urinary incontinence 07/08/2017 022 Overview: Seeing Dr. Alba documented as of this encounter (statuses as of 03/17/2023) [facility]12-22-2017 History of Past illness Narrative* Problem Noted Date Diagnosed Date Resolved Date Urinary incontinence 07/08/2017 Overview: Seeing Dr. Alba documented as of this encounter (statuses as of 03/29/2023) [facility]-22-2017 History of Past illness Narrative* Problem Noted Date Diagnosed Date Resolved Date Urinary incontinence 07/08/2017 Overview: Seeing Dr. Alba documented as of this encounter (statuses as of 04/02/2023) [facility]12-22-2017 History of Past illness Narrative* Problem Noted Date Diagnosed Date Resolved Date Urinary incontinence 07/08/2017 Overview: Seeing Dr. Alba documented as of this encounter (statuses as of 04/29/2023) [facility]-22-2017 History of Past illness Narrative* Problem Noted Date Diagnosed Date Resolved Date Urinary incontinence 07/08/2017 Overview: Seeing Dr. Alba documented as of this encounter (statuses as of 05/06/2023) [facility]-22-2017 History of Past illness Narrative* Problem Noted Date Diagnosed Date Resolved Date Urinary incontinence 07/08/2017 Overview: Seeing Dr. Alba documented as of this encounter (statuses as of 05/13/2023) [facility]12-22-2017 History of Past illness Narrative* Problem Noted Date Diagnosed Date Resolved Date Urinary incontinence 07/08/2017 022 Overview: Seeing Dr. Alba documented as of this encounter (statuses as of 07/25/2023) [facility]12-22-2017 History of Past illness Narrative* Problem Noted Date Diagnosed Date Resolved Date Urinary incontinence 07/08/2017 Overview: Seeing Dr. Alba documented as of this encounter (statuses as of 09/19/2023) [facility]12-22-2017 History of Past illness Narrative* Problem Noted Date Diagnosed Date Resolved Date Urinary incontinence 07/08/2017 Overview: Seeing Dr. Alba documented as of this encounter (statuses as of 09/28/2023) [facility]-22-2017 History of Past illness Narrative* Problem Noted Date Diagnosed Date Resolved Date Urinary incontinence 07/08/2017 022 Overview: Seeing Dr. Alba documented as of this encounter (statuses as of 09/29/2023) [facility]-22[facility]2017 History of Past illness Narrative* Problem Noted Date Diagnosed Date Resolved Date Urinary incontinence 07/08/2017 Overview: Seeing Dr. Alba documented as of this encounter (statuses as of 09/30/2023) [facility]04-12-2017 History of Past illness Narrative* Problem Noted Date Resolved Date Well adult exam 10/27/2016 10/15/2021 Overview: last done: 05/29/2021 documented as of this encounter (statuses as of 10/15/2021) [facility]12[facility]2017 History of Past illness Narrative* Problem Noted Date Resolved Date Well adult exam 10/27/2016 10/15/2021 Overview: last done: 05/29/2021 documented as of this encounter (statuses as of 10/15/2021) [facility]2017 History of Past illness Narrative* Problem Noted Date Resolved Date Well adult exam 10/27/2016 10/15/2021 Overview: last done: 05/29/2021 documented as of this encounter (statuses as of 10/16/2021) [facility]-12[facility]2017 History of Past illness Narrative* Problem Noted Date Resolved Date Well adult exam 10/27/2016 10/15/2021 Overview: last done: 05/29/2021 documented as of this encounter (statuses as of 10/20/2021) [address]12-2017 History of Past illness Narrative* Problem Noted Date Resolved Date Well adult exam 10/27/2016 10/15/2021 Overview: last done: 05/29/2021 documented as of this encounter (statuses as of 10/22/2021) [facility]2017 History of Past illness Narrative* Problem Noted Date Resolved Date Well adult exam 10/27/2016 10/15/2021 Overview: last done: 05/29/2021 documented as of this encounter (statuses as of 11/19/2021) [facility]into [facility] September 12, 2022 11:17am Note Date/Time September 12, 2022 11:16am [facility] Medical Records Department [address] [place] [address] Emergency Department Summary 09/12/22 MR#: [id number] Acct: [id number] Name: PERNELL RODRIGUEZ CHEKO Rep #:[id number] : 1960 62 From: Ortzi Pinto MD PCP: Dr. Homer Bradford MD [...] as well. She denies any systemic symptoms. [facility] Medical History Acute respiratory failure with [...] mg rectal suppository (Dulcolax (bisacodyl)) 10 mg MS DAILY PRN 09/28/21 [History Last Taken Unknown] [...] Verified 09/12/22 10:56 [From [place]] Family History Grandmother Cancer stomach Father Cancer lung Sister Breast cancer Surgical History H/O dilation and curettage H/O hand surgery [...] [Dulcolax (bisacodyl)] 10 mg suppository 10 mg MS DAILY PRN budesonide-formoterol [Symbicort] 160-4.5 mcg/actuation HFA aerosol inhaler 2 puff inhalation BID Qty: 1 3RF Rx Instructions: administer with spacer, rinse mouth after each use mirabegron 50 MG tablet extended release 24 hr 25 mg PO DAILY citalopram [Celexa] 10 mg Tablet 10 mg PO DAILY topiramate [Topamax] 25 mg Tablet 25 mg PO BID sodium chloride [Deep Sea Nasal] 0.65 % Aerosol,[place] 2 spray NASAL TID PRN PRN (Reason: [...] your Primary Care Provider. Call [facility] ([phone]) or report to the closest Emergency Room. Call 911 if necessary. 09/12/22 1117 <Electronically signed by Ortiz Pinto MD> Cosigner Signature (if applicable): CC: Dr. Homer Bradford MD ~ Signed [facility] Work Phone: Discharge summary Author Jennifer Alba [facility] November 24, 2023 11:45am Note Date/Time November 24, 2023 11:42a m [facility] Medical Records Department [address] [place] [address] Instructions for Home/Discharge Instructions 11/24/23 1141 MR#: [id number] Acct: [id number] Name: PERNELL RODRIGUEZ Rep #:[id number] : 1960 63 From: Jennifer Arthur PCP: Dr. Homer Bradford MD Status[place] [place] Discharge Instructions Diet Discharge Diet: No restrictions [...] CC: Dr. Homer Bradford MD ~ Signed [facility] Work Phone: Discharge summary Author Peter Herbert [facility] Note Date/Time January 11, 2025 12:0 7pm [facility] Medical Records Department [address] [place] [address] Discharge Summary 01/11/25 1205 MR#: [id number] Acct: [id number] Name: PERNELL RODRIGUEZ Rep #:[id number] : 1960 64 From: Peter Arthur PCP: Dr. Homer Bradford MD Status:ADM IN [place] [facility] [id number] Providers Date of Admission: 01/08/25 Date of Discharge: 01/11/25 Primary Care Physician: Dr. Homer Bradford MD Consultations 01/08/25 20:32 Consult: Commercial Designer / Pulmonary Medicine Routine Consulting Provider: Intensivists/Pulmonary Med Reason for Consult: Sepsis, Encephalopathy, UTI EMERGENT Consult: No MD Notified: Yes Date Notified: 01/09/25 Time Notified: 08:00 Method of Notification: Verbal 01/10/25 08:29 Consult: Onc/Wound/healthcare analyst Routine Comment: Reason for Consult:: Left lg worund, swelling/venous HTN Reason For Visit: SEPSIS UTI Diagnosis Discharge Diagnosis (1) Sepsis: Status: Acute Code(s): A41.9 - Sepsis, unspecified organism Plan Patient is a 64-year-old female who presented to [facility] ED on 01/08/2025 with altered mentation. 1. Sepsis suspected secondary to UTI ? Commercial Designer following. Met sepsis criteria on admit with [...] reportedly been staying with a friend in [place] recently and has been applying for housing. [...] Provider: Homer Bradford Consulting Providers: Lauren Vela; LuisA ntonio Navarro Discharge Orders/Prescriptions Prescriptions: New midodrine 10 [...] [Non-Staff] - 02/26/25 12:00 pm (Provide A Ride([phone]) will pick you up at 11-11:30, and will pick you up from [facility] at1pm after the appt.) Disposition Disposition (needs filled in before D/C Order can be placed): Home, Self Care Charges/Coding Visit Charges Inpatient E&M: 08405 Disch Hosp >30min 01/11/25 1207 <Electronically signed by Peter Herbert MD> Cosigner Signature (if applicable): CC: Dr. Homer Bradford MD; Dr. Peter Herbert MD~ Signed [facility] Work Phone: Evaluation + Plan note Future Appointments Appointment Date:06/21/2022 03:00:00 PM Scheduled Provider:RAJANI GOINS Location[facility]* Diagnosis History of [...] constipation and diarrhea [facility] Diagnosis Type 2 diabetes mellitus without complication, with long-term current use of insulin (HCC)- Primary Diabetic eye exam ([facility]) Type II or unspecified type [...] Coronary atherosclerosis of unspecified type of vessel, [place] or graft Chronic obstructive pulmonary disease, unspecified [...] and stress (male)(female) [facility] Diagnosis Paroxysmal atrial fibrillation (HCC) Atrial fibrillation [facility] Diagnosis Stage 3b chronic kidney disease (HCC)- Primary [facility]* Diagnosis Stage 3b chronic kidney disease (HCC)- Primary Hypokalemia Hypopotassemia [facility]* Diagnosis Onset Date Resolution Status Acute on chronic renal insufficiency chronic Acidosis, lactic resolved Acute hypotension resolved Bilateral interstitial pneumonia resolved Dehydration, moderate resolv ed Hypokalemia resolved Sepsis resolved Septic shock resolved Bipolar disorder chronic COPD (chronic obstructive pulmonary disease) [facility] Work Phone: Evaluation note* Diagnosis Hypokalemia- Primary Hypopotassemia [facility]* Diagnosis Hypokalemia- Primary Hypopotassemia [facility] Diagnosis Oropharyngeal dysphagia- Primary Dysphagia, oropharyngeal phase [facility]* Diagnosis Onychomycosis- Primary Dermatophytosis of nail Pain in toe of left foot Pain in limb Pain in toe of right foot Pain in limb Diminished pulses in lower extremity Other symptoms involving cardiovascular system Other diabetic neurological complication associated with type 2 diabetes mellitus ([facility]) [facility]* Diagnosis Onset Date Resolution Status Nicotine dependence, cigarettes, uncomplicated acute COPD (chronic obstructive pulmonary disease) chronic Obesity, morbid, BMI 40.0-49.9 [facility] Work Phone: Evaluation note* Diagnosis Onset Date Resolution Status Nicotine dependence, cigarettes, uncomplicated acute COPD (chronic obstructive pulmonary disease) chronic Obesity, morbid, BMI 40.0-49.9 chronic Smoking greater than 40 pack years acute Asthma-COPD overlap syndrome chronic Bipolar disorder [facility] Work Phone: Evaluation note* Diagnosis Well adult exam- Primary Routine general medical examination at a health care facility Type 2 diabetes mellitus without complication, with long-term current use of insulin ([facility]) Diabetic eye exam ([facility]) Type II or unspecified type diabetes mellitus without mention of complication, not stated as uncontrolled Diabetic foot ([facility]) Type II or unspecified type [...] Coronary atherosclerosis of unspecified type of vessel, [place] or graft Paroxysmal atrial fibrillation (HCC) Atrial fibrillation Bilateral leg edema Edema Stage 3b chronic kidney disease ([facility]) History of CVA (cerebrovascular accident) Transient ischemic attack (TIA), and cerebral infarction without residual deficits Mixed incontinence urge and stress (male)(female) Incontinence of feces, unspecified fecal incontinence type Smoker Tobacco use disorder Bipolar affective disorder, remission status unspecified (HCC) Major depressive disorder, recurrent episode, moderate (HCC) Major depressive disorder, recurrent episode, moderate [place] or callus Corns and callosities Colon cancer screening Special screening for malignant neoplasms, colon Medication management Encounter for long-term (current) use of other medications Leg cramps Cramp of limb [facility] Diagnosis Leg cramps- Primary Cramp of limb [facility] Diagnosis Encounter for screening mammogram for breast cancer [facility] Diagnosis Other diabetic neurological complication associated with type 2 diabetes mellitus (HCC)- Primary Onychomycosis Dermatophytosis of nail Pain in toe of left foot Pain in limb Pain in toe of right foot Pain in limb Hyperkeratosis Acquired keratoderma [facility] Diagnosis Low vitamin B12 level Other B-complex deficiencies [facility] noteNo assessment information availableWSelect [facility] Work Phone: Evaluation note* Diagnosis Rash- Primary Rash and other nonspecific skin eruption [facility]* Diagnosis Migraine without aura and without status migrainosus, not intractable Migraine without aura, without mention of intractable migraine without mention of status migrainosus [facility]* Diagnosis Rash- Primary Rash and other nonspecific skin eruption Hives Urticaria, unspecified [facility]* Diagnosis Leg cramps- Primary Cramp of limb [facility] Diagnosis Hordeolum externum of right lower eyelid- Primary Hordeolum externum Meibomian gland dysfunction (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 eyes Type 2 diabetes mellitus without retinopathy (HCC) Type II or unspecified type diabetes mellitus without mention of complication, not stated as uncontrolled Nuclear sclerosis of both eyes Presbyopia [facility] Diagnosis Other diabetic neurological complication associated with type 2 diabetes mellitus (HCC)- Primary Onychomycosis Dermatophytosis of nail Pain in toe of left foot Pain in limb Pain in toe of right foot Pain in limb Hyperkeratosis Acquired keratoderma Diminished pulses in lower extremity Other symptoms involving cardiovascular system [facility]* Diagnosis Mixed hyperlipidemia- Primary Type 2 diabetes mellitus without complication, with long-term current use of insulin (HCC) Chronic obstructive pulmonary disease, unspecified COPD type (HCC) Morbid obesity due to excess calories (HCC) Stage 3b chronic kidney disease (HCC) Screening for colon cancer Special screening for malignant neoplasms, colon [facility]* Diagnosis Onset Date Resolution Status Lung nodule acute Dyspnea chronic [facility] Work Phone: Evaluation note* Diagnosis Screening for colon cancer Special screening for malignant neoplasms, colon [facility]* Diagnosis Encounter for screening mammogram for breast cancer documented in this encounter [facility] note* Diagnosis Chronic pain of both shoulders- Primary Pain in joint, shoulder region Type 2 diabetes mellitus without complication, without long-term current use of insulin (HCC) Major depressive disorder, recurrent episode, moderate (HCC) Major depressive disorder, recurrent episode, moderate Gastroesophageal reflux disease without esophagitis Esophageal reflux Mixed hyperlipidemia [facility]* Diagnosis Rotator cuff disorder, left- Primary Obesity, Class III, BMI >= 40 Morbid obesity [facility]* Diagnosis Chronic pain of both shoulders Pain in joint, shoulder region documented in this encounter [facility] note* Diagnosis Type 2 diabetes mellitus with stage 3b chronic kidney disease, without long-term current use of insulin ([facility])- Primary Diabetic eye exam ([facility]) Type II or unspecified type diabetes mellitus without mention of complication, not stated as uncontrolled Mixed hyperlipidemia Hypotension, unspecified hypotension type ASHD (arteriosclerotic heart disease) Coronary atherosclerosis of unspecified type of vessel, [place] or graft Paroxysmal atrial fibrillation (HCC) Atrial [...] for breast cancer [facility]* Diagnosis Rotator cuff disorder, left [facility]* Diagnosis Encounter for screening mammogram for breast cancer [facility]* Diagnosis Mixed incontinence urge and stress (male)(female) Incontinence of feces, unspecified fecal incontinence type [facility]* Diagnosis Mixed incontinence urge and stress (male)(female)- Primary [facility]* Diagnosis Well adult exam- Primary Routine general medical examination at a [facility] Stage 3b chronic kidney disease (HCC) Type 2 diabetes mellitus with stage 3b chronic kidney disease, without long-term current use of insulin ([facility]) Gastroesophageal reflux disease without esophagitis Esophageal reflux Chronic obstructive pulmonary disease, unspecified COPD type ([facility]) Paroxysmal atrial fibrillation (HCC) Atrial fibrillation Mixed hyperlipidemia Low vitamin B12 level Other B-complex deficiencies Obesity, Class III, BMI >= 40 Morbid obesity Medication management Encounter for long-term (current) use of other medications Subacute cough Cough [facility]* Diagnosis Left hip pain Pain in joint, pelvic region and thigh [facility]* Diagnosis Mixed incontinence urge and stress (male)(female)- Primary Muscle weakness (generalized) Incontinence of feces, unspecified fecal incontinence type [facility]* Diagnosis Type 2 diabetes mellitus with stage 3b chronic kidney disease, without long-term current use of insulin ([facility])- Primary Diabetic eye exam ([facility]) Type II or unspecified type diabetes mellitus without mention of complication, not stated as uncontrolled Mixed hyperlipidemia History of CVA (cerebrovascular accident) Transient ischemic attack (TIA), and cerebral infarction without residual deficits Chronic obstructive pulmonary disease, unspecified COPD type ([facility]) Nodule of left lung Solitary [...] Coronary atherosclerosis of unspecified type of vessel, [place] or graft Paroxysmal atrial fibrillation (HCC) Atrial [...] of other medications [facility] Diagnosis Sepsis, due to unspecified organism, unspecified whether acute organ dysfunction present (HCC)- Primary ASHD (arteriosclerotic heart disease) Coronary atherosclerosis of unspecified type of vessel, [place] or graft Chronic obstructive pulmonary disease, unspecified COPD type (HCC) Wound of left lower extremity, subsequent encounter Type 2 diabetes mellitus with stage 3b chronic kidney disease, without long-term current use of insulin (HCC) Paroxysmal atrial fibrillation (HCC) Atrial fibrillation Mixed hyperlipidemia Stage 3b chronic kidney disease (HCC) [facility] Urinary frequency- Primary Dysuria Pressure injury of sacral region, stage 2 (HCC) [facility] Diagnosis Left shoulder pain, unspecified chronicity- Primary [facility] Diagnosis Type 2 diabetes mellitus without retinopathy (HCC)- Primary Type II or unspecified type diabetes mellitus without mention of complication, not stated as uncontrolled Nuclear sclerosis of both eyes Regular astigmatism of both eyes Regular astigmatism Presbyopia Meibomian gland dysfunction (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 eyes [facility] Lauren Vela [facility] Note Date/Time November 04, 2024 3:0 0pm [facility] Medical Records Department [address] [place] [address] H&P Exam - Hospitalist 11/04/24 1429 MR#: [id number] Acct: [id number] Name: PERNELL RODRIGUEZ Rep #:[id number] 3 : 1960 64 From: Lauren Vela [...] Morbid obesity, GERD who presents to the [facility] ED on 11/04/2024 with history of myriad [...] 15, occult blood 50, positive nitrate, leukocyte [id number] with urine WBCs 25-50 with 3+ urine [...] as Lev[facility] 750 [facility] History of echocardiogram Wears [...] Sl. Cloudy, Urine pH 5.0, Ur Specific [place] 1.020, Urine Protein 15 H, Urine Glucose [...] (Auto) 70.2 H, Lymph % (Auto) 19.2, [place] % (Auto) 7.3, Eos % (Auto) 2.9, [...] Morbid obesity, GERD who presents to the [facility] ED on 11/04/2024 with history of myriad [...] readmission, not clinically appropriate for consideration for longterm. #13. DVT prophylaxis: Will continue patient home Eliquis regimen. #14. CODE status: Patient does not have healthcare power of family law attorney or living will in place but [...] 16 minutes. Charges/Coding Visit Charges Inpatient E&M: 10315 Init Hosp L3 Procedures Hospitalists Procedures: 95078 Advncd Care Plan 30 Min 11/04/24 1500 <Electronically signed by Lauren Vela MD> Cosigner Signature (if applicable): CC: Dr. Lauren Vela MD; Dr. Homer Bradford MD~ Signed [facility] Work Phone: Hospital course Narrative No data available for this section [facility] Hospital Discharge instructions Additional Instructions Prednisone may make your blood sugars go up since you are a diabetic. Make sure you check your blood sugars at least once daily, if they go over 400, come to the ER. You already received a dose of prednisone for today, so start the prescription tomorrow 09/13.[facility] Work Phone: Hospital Discharge instructions Additional Instructions Implant Used?: [facility] Work Phone: Hospital Discharge instructionsAdditional Instructions Date of Discharge: 01/11/25[facility] Work Phone: Hospital Discharge instructionsAdditional Instructions - [...] are having trouble with access to your nebulizer.[facility] Work Phone: Progress note No data available for this section [facility] Reason for referral (narrative)* Diagnostic Procedure Only (Routine) - Pending Review Specialty Diagnoses / Procedures Referred By Contac t Referred To Contact BR IMAGING Diagnoses Encounter for screening mammogram for breast cancer Procedures JACI SCREENING SCREENING MAMMOGRAPHY BI 2-VIEW BREAST INC CAD Homer Bradford MD [address] [place] [address] [facility] [address] [place] [address] Referral ID Status Reason Start Date Expiration Date Visits Requested Visits Authorized [id number] Pending Review Auto-Generat ed Referral 07/28/2022 08/27/2023 1 1 [facility] for referral (narrative)* Outpatient Procedure (Routine) - Authorized Specialty Diagnoses / Procedures [facility] To Contact [facility] Diagnoses Diminished pulses in lower extremity Procedures PVR ANK PRESS [facility] NON-INVAS PHYSIOLOGIC STD EXTREMITY ART 2 LEVEL Dennys Pool [address] [place] [address] [facility] [address] [place] [address] Referral ID Status Reason Start Date Expiration Date Visits Requested Visits Authorized [id number] Authorized Auto-Generat ed Referral 01/12/2023 01/12/2024 1 1 [facility] for referral (narrative)* Diagnostic Procedure Only (Routine) - Authorized Specialty Diagnoses / Procedures Referred By Contac t Referred To Contact BR IMAGING Diagnoses Encounter for screening mammogram for breast cancer Procedures JACI SCREENING SCREENING MAMMOGRAPHY BI 2-VIEW BREAST INC CAD Homer Bradford MD [address] [place] [address] [facility] [id number] [place] [address] Referral ID Status Reason Start Date Expiration Date Visits Requested Visits Authorized [id number] Authorized Auto-Generat ed Referral 07/20/2023 08/18/2024 1 1 [facility] for referral (narrative)No reason for referral information availableWSelect [facility] Work Phone: Reason for visit Narrative* Diagnostic Procedure Only (Routine) - Closed Specialty Diagnoses / Procedures Referred By Contac t Referred To Contact XR IMAGING Diagnoses Chronic pain of both shoulders Procedures XR SHOULDER GENERAL 3V OR MORE AP/TRUE AP/OTHER RIGHT RADEX SHOULDER COMPLETE MINIMUM 2 VIEWS Meagan Yusuf PA-C [address] [place] [address] [place] [address] Referral ID Status Reason Start Date Expiration Date V isits Requested Visits Authorized [id number] Closed Auto-Generate d Referral 09/27/2023 10/26/2024 1 1 [facility] for visit Narrative* Diagnostic Procedure Only (Routine) - Closed Specialty Diagnoses / Procedures Referred By Contac t Referred To Contact BR IMAGING Diagnoses Encounter for screening mammogram for breast cancer Procedures JACI SCREENING SCREENING MAMMOGRAPHY BI 2-VIEW BREAST INC CAD Homer Bradford MD [address] [place] [address] [facility] [address] [place] [address] Referral ID Status Reason Start Date Expiration Date V isits Requested Visits Authorized [id number] Closed Auto-Generate d Referral 11/14/2023 12/13/2024 1 1 [facility] Summary Purpose Family History No Family History Records Found Relationship Condition Age at Onset Recorded Date/T pierce grandmother Malignant neoplasm Unknown father Malignant neoplasm Unknown sister Malignant neoplasm of breast Unknown Advance Directives No Advanced Directives Records Found Advance Directive Response Recorded Date/ Time Advance Directives No January 14 14 4:13pm Living Will No August 25 7:42pm Power of Furniture Removalist No August 25, 2021 7:42pm Advance Directive Response Recorded Date/ Time Advance Directives No January 14 14 3:13pm Living Will No September 12 023 11:06am Power of Furniture Removalist No September 12, 2022 11:06am Advance Directive Response Recorded Date/ Time Advance Directives No January 14 14 4:13pm Living Will No December 01, 2022 2 :34pm Power of Furniture Removalist No December 01, 2022 2:34pm Advance Directive Response Recorded Date/ Time Advance Directives No January 14 14 4:13pm Living Will No November 18, 2023 11 :36am Power of Furniture Removalist No November 18, 2023 11:36am Advance Directive Response Recorded Date/ Time Living Will No September 12 025 4:06pm Power of Furniture Removalist No September 12, 2024 4:06pm Advance Directives No January 14 3:13pm Advance Directive Response Recorded Date/ Time Living Will No September 12 2 025 5:06pm Do you have a Healthcare Power of Furniture Removalist? No September 12, 2024 5:06pm Living Will No November 04, 2024 12:39pm Do you have a Healthcare Power of Furniture Removalist? No November 04, 2024 12:39pm Advance Directives No January 14 4:13pm Advance Directive Response Recorded Date/ Time Living Will No September 12, 025 5:06pm Do you have a Healthcare Power of Furniture Removalist? No September 12, 2024 5:06pm Do you have a Healthcare Power of Furniture Removalist? No November 12, 2024 2:30am Living Will No November 04, 2024 4:45pm Do you have a Healthcare Power of Furniture Removalist? No November 04, 2024 4:45pm Do you have a Healthcare Power of Furniture Removalist? No November 14, 2024 6:51am Do you have a Healthcare Power of Furniture Removalist? No January 08, 2025 5:00pm Advance Directives No January 14 14 4:13pm Advance Directive Response Recorded Date/ Time Living Will No September 12 025 5:06pm Do you have a Healthcare Power of Furniture Removalist? No September 12, 2024 5:06pm Do you have a Healthcare Power of Furniture Removalist? No November 12, 2024 2:30am Living Will No November 04, 2024 4:45pm Do you have a Healthcare Power of Furniture Removalist? No November 04, 2024 4:45pm Do you have a Healthcare Power of Furniture Removalist? No November 14, 2024 6:51am Do you have a Healthcare Power of Furniture Removalist? No January 08, 2025 8:52pm Advance Directives No January 14 4:13pm Advance Directive Response Recorded Date/ Time Do you have a Healthcare Power of Furniture Removalist? No November 12, 2024 2:30am Living Will No November 04, 2024 4:45pm Do you have a Healthcare Power of Furniture Removalist? No November 04, 2024 4:45pm Do you have a Healthcare Power of Furniture Removalist? No November 14, 2024 6:51am Do you have a Healthcare Power of Furniture Removalist? No January 08, 2025 8:52pm Advance Directives No January 14 4:13pm Advance Directive Response Recorded Date/ Time Do you have a Healthcare Power of Furniture Removalist? No November 12, 2024 2:30am Living Will No November 04, 2024 4:45pm Do you have a Healthcare Power of Furniture Removalist? No November 04, 2024 4:45pm Do you have a Healthcare Power of Furniture Removalist? No November 14, 2024 6:51am Do you have a Healthcare Power of Furniture Removalist? No January 08, 2025 8:52pm Advance Directives No January 31 1:47pm Advance Directive Response Recorded Date/ Time Do you have a Healthcare Power of Furniture Removalist? No November 12, 2024 2:30am Do you have a Healthcare Power of Furniture Removalist? No November 14, 2024 6:51am Do you have a Healthcare Power of Furniture Removalist? No January 08, 2025 8:52pm Advance Directives No January 31 1:47pm Advance Directive Response Recorded Date/ Time Do you have a Healthcare Power of Furniture Removalist? No January 08, 2025 8:52pm Advance Directives No January 31 1:47pm Advance Directive Response Recorded Date/ Time Do you have a Healthcare Power of Furniture Removalist? No April 30, 2025 5:47pm Advance Directives No January 31 1:47pm Reason for Referral Specialty Diagnoses / Procedures Referred By Contac t Referred To Contact Nephrology Diagnoses Stage 3b chronic kidney disease (HCC) Procedures CONSULT TO NEPHROLOGY OFFICE/OUTPATIENT [facility] 60-74 MINUTES Homer Bradford MD [address] [place] [address] Referral ID Status Reason Start Date Expiration Date Visits Requested Visits Authorized [id number] Authorized PCP Requested Referral 12/16/2021 12/16/2022 1 1 Specialty Diagnoses / Procedures Referred By Contac t Referred To Contact Meagan Yusuf PA-C [address] [place] [address] Referral ID Status Reason Start Date Expiration Date Visits Re quested Visits Authorized [id number] Closed 1 1 Specialty Diagnoses / Procedures Referred By Contac t Referred To Contact General Surgery Diagnoses Screening for colon cancer Procedures CONSULT TO GENERAL SURGERY OFFICE/OUTPATIENT [facility] 60-74 MINUTES Meagan Yusuf PA-C [address] [place] [address] Referral ID Status Reason Start Date Expiration Date Visits Requested Visits Authorized [id number] Authorized PCP Requested Referral 02/28/2023 02/28/2024 1 1 Specialty Diagnoses / Procedures Referred By Contac t Referred To Contact Orthopedics Diagnoses Chronic pain of both shoulders Procedures CONSULT TO ORTHOPAEDICS OFFICE/OUTPATIENT [facility] 60 MINUTES Meagan Yusuf PA-C [address] [place] [address] Referral ID Status Reason Start Date Expiration Date Visits Requested Visits Authorized [id number] Authorized PCP Requested Referral 09/27/2023 09/26/2024 1 1 Specialty Diagnoses / Procedures Referred By Contac t Referred To Contact XR IMAGING Diagnoses Chronic pain of both shoulders Procedures XR SHOULDER GENERAL 3V OR MORE AP/TRUE AP/OTHER RIGHT RADEX SHOULDER COMPLETE MINIMUM 2 VIEWS Meagan Yusuf PA-C [address] [place] [address] [place] [address] Referral ID Status Reason Start Date Expiration Date Visits Requested Visits Authorized [id number] Pending Review Auto-Generat ed Referral 09/27/2023 10/26/2024 1 1 Specialty Diagnoses / Procedures Referred By Contac t Referred To Contact XR IMAGING Diagnoses Chronic pain of both shoulders Procedures XR SHOULDER GENERAL 3V OR MORE AP/TRUE AP/OTHER LEFT RADEX SHOULDER COMPLETE MINIMUM 2 VIEWS Meagan Yusuf PA-C [address] [place] [address] [place] [address] Referral ID Status Reason Start Date Expiration Date Visits Requested Visits Authorized [id number] Pending Review Auto-Generat ed Referral 09/27/2023 10/26/2024 1 1 Specialty Diagnoses / Procedures Referred By Contac t Referred To Contact [facility] Diagnoses Rotator cuff disorder, left Procedures CONSULT TO PHYSICAL THERAPY PHYSICAL THERAPY EVALUATION [facility] 45 MINS Jarod Godwin V, DO [address] [place] [address] [facility] [address] [place] [address] Referral ID Status Reason Start Date Expiration Date Visits Requested Visits Authorized [id number] Authorized Auto-Generat ed Referral 07/18/2023 07/17/2024 1 1 Specialty Diagnoses / Procedures Referred By Contac t Referred To Contact Neurology Diagnoses Hypotension, unspecified hypotension type History of CVA (cerebrovascular accident) Migraine without aura and without status migrainosus, not intractable Extrapyramidal reaction Tardive dyskinesia Chronic insomnia Procedures CONSULT TO NEUROLOGY OFFICE/OUTPATIENT [facility] 60 MINUTES Homer Bradford MD [address] [place] [address] Referral ID Status Reason Start Date Expiration Date Visits Requested Visits Authorized [id number] Authorized PCP Requested Referral 11/14/2023 11/13/2024 1 1 Specialty Diagnoses / Procedures Referred By Contac t Referred To Contact BR IMAG[facility] Diagnoses Encounter for screening mammogram for breast cancer Procedures JACI SCREENING SCREENING MAMMOGRAPHY BI 2-VIEW BREAST INC CAD Homer Bradford MD [address] [place] [address] [facility] [address] [place] [address] Referral ID Status Reason Start Date Expiration Date Visits Requested Visits Authorized [id number] Authorized Auto-Generat ed Referral 11/14/2023 12/13/2024 1 1 Specialty Diagnoses / Procedures Referred By Contac t Referred To Contact [facility] Diagnoses Rotator cuff disorder, left Procedures PT REHAB FOLLOW UP ORDER THERAPEUTIC EXERCISES RE, EA 15 MIN. Antwan Cope, PT [address] [place] [address] [facility] [address] [place] [address] Referral ID Status Reason Start Date Expiration Date Visits Requested Visits Authorized [id number] Pending Review PCP Requested Referral Auto-Generate d Referral 11/29/2023 02/27/2024 1 1 Specialty Diagnoses / Procedures Referred By Contac t Referred To Contact Ophthalmology Diagnoses Type 2 diabetes mellitus with stage 3b chronic kidney disease, without long-term current use of insulin (HCC) Procedures CONSULT TO OPHTHALMOLOGY OFFICE/OUTPATIENT [facility] 60 MINUTES Meagan Yusuf PA-C [address] [place] [address] Referral ID Status Reason Start Date Expiration Date Visits Requested Visits Authorized [id number] Authorized PCP Requested Referral 03/22/2024 03/22/2025 1 [...] cardiac monito r January 08, 2025 7:30pm Eqvkk-mk-tsumfbj kidney injury December 7:30pm DM (diabetes mellitus), [...] cardiac monito r January 08, 2025 7:23pm Tlosj-ft-ltspsxy kidney injury December 7:23pm DM (diabetes mellitus), [...] cardiac monito r January 08, 2025 7:23pm Htxpc-ed-oqtulfp kidney injury December 7:23pm DM (diabetes mellitus), [...] cardiac monito r January 08, 2025 7:23pm Tlbol-td-ayrzmvc kidney injury December 7:23pm DM (diabetes mellitus), [...] cardiac monito r January 08, 2025 7:23pm Lofqv-ee-hvbvpkf kidney injury December 7:23pm DM (diabetes mellitus), [...] section and content) DATE CREATED AUTHOR 01/06/2019 [facility] DATE CREATED AUTHOR AUTHOR'S ORGANIZ ATION 01/06/2022 [facility] ([place]) DATE CREATED AUTHOR AUTHOR'S ORGANIZ ATION 05/30/2025 [facility] DATE CREATED AUTHOR AUTHOR'S ORGANIZ ATION 05/30/2025 [facility] Source Comments (unrecognize d section and content) In the event this informatio n is protected by the Federal Confidentiality of Alcohol and Drug Abuse Patient Records regulations: The Federal rules restrict any use of the information to criminally investigate or prosecute any alcohol or drug abuse patient.[facility] the event this information is protected by the Federal Confidentiality of Alcohol and Drug Abuse Patient Records regulations: The Federal rules restrict any use of the information to criminally investigate or prosecute any alcohol or drug abuse patient.[facility] the event this information is protected by the Federal Confidentiality of Alcohol and Drug Abuse Patient Records regulations: The Federal rules restrict any use of the information to criminally investigate or prosecute any alcohol or drug abuse patient.[facility] the event this information is protected by the Federal Confidentiality of Alcohol and Drug Abuse Patient Records regulations: The Federal rules restrict any use of the information to criminally investigate or prosecute any alcohol or drug abuse patient.[facility] the event this information is protected by the Federal Confidentiality of Alcohol and Drug Abuse Patient Records regulations: The Federal rules restrict any use of the information to criminally investigate or prosecute any alcohol or drug abuse patient.[facility] the event this information is protected by the Federal Confidentiality of Alcohol and Drug Abuse Patient Records regulations: The Federal rules restrict any use of the information to criminally investigate or prosecute any alcohol or drug abuse patient.[facility] the event this information is protected by the Federal Confidentiality of Alcohol and Drug Abuse Patient Records regulations: The Federal rules restrict any use of the information to criminally investigate or prosecute any alcohol or drug abuse patient.[facility] the event this information is protected by the Federal Confidentiality of Alcohol and Drug Abuse Patient Records regulations: The Federal rules restrict any use of the information to criminally investigate or prosecute any alcohol or drug abuse patient.[facility] the event this information is protected by the Federal Confidentiality of Alcohol and Drug Abuse Patient Records regulations: The Federal rules restrict any use of the information to criminally investigate or prosecute any alcohol or drug abuse patient.[facility] the event this information is protected by the Federal Confidentiality of Alcohol and Drug Abuse Patient Records regulations: The Federal rules restrict any use of the information to criminally investigate or prosecute any alcohol or drug abuse patient.[facility] the event this information is protected by the Federal Confidentiality of Alcohol and Drug Abuse Patient Records regulations: The Federal rules restrict any use of the information to criminally investigate or prosecute any alcohol or drug abuse patient.[facility] the event this information is protected by the Federal Confidentiality of Alcohol and Drug Abuse Patient Records regulations: The Federal rules restrict any use of the information to criminally investigate or prosecute any alcohol or drug abuse patient.[facility] the event this information is protected by the Federal Confidentiality of Alcohol and Drug Abuse Patient Records regulations: The Federal rules restrict any use of the information to criminally investigate or prosecute any alcohol or drug abuse patient.[facility] the event this information is protected by the Federal Confidentiality of Alcohol and Drug Abuse Patient Records regulations: The Federal rules restrict any use of the information to criminally investigate or prosecute any alcohol or drug abuse patient.[facility] the event this information is protected by the Federal Confidentiality of Alcohol and Drug Abuse Patient Records regulations: The Federal rules restrict any use of the information to criminally investigate or prosecute any alcohol or drug abuse patient.[facility] the event this information is protected by the Federal Confidentiality of Alcohol and Drug Abuse Patient Records regulations: The Federal rules restrict any use of the information to criminally investigate or prosecute any alcohol or drug abuse patient.[facility] the event this information is protected by the Federal Confidentiality of Alcohol and Drug Abuse Patient Records regulations: The Federal rules restrict any use of the information to criminally investigate or prosecute any alcohol or drug abuse patient.[facility] the event this information is protected by the Federal Confidentiality of Alcohol and Drug Abuse Patient Records regulations: The Federal rules restrict any use of the information to criminally investigate or prosecute any alcohol or drug abuse patient.[facility] the event this information is protected by the Federal Confidentiality of Alcohol and Drug Abuse Patient Records regulations: The Federal rules restrict any use of the information to criminally investigate or prosecute any alcohol or drug abuse patient.[facility] the event this information is protected by the Federal Confidentiality of Alcohol and Drug Abuse Patient Records regulations: The Federal rules restrict any use of the information to criminally investigate or prosecute any alcohol or drug abuse patient.[facility] the event this information is protected by the Federal Confidentiality of Alcohol and Drug Abuse Patient Records regulations: The Federal rules restrict any use of the information to criminally investigate or prosecute any alcohol or drug abuse patient.[facility] the event this information is protected by the Federal Confidentiality of Alcohol and Drug Abuse Patient Records regulations: The Federal rules restrict any use of the information to criminally investigate or prosecute any alcohol or drug abuse patient.[facility] the event this information is protected by the Federal Confidentiality of Alcohol and Drug Abuse Patient Records regulations: The Federal rules restrict any use of the information to criminally investigate or prosecute any alcohol or drug abuse patient.[facility] WestIn the event this information is protected by the Federal Confidentiality of Alcohol and Drug Abuse Patient Records regulations: The Federal rules restrict any use of the information to criminally investigate or prosecute any alcohol or drug abuse patient.[facility] WestIn the event this information is protected by the Federal Confidentiality of Alcohol and Drug Abuse Patient Records regulations: The Federal rules restrict any use of the information to criminally investigate or prosecute any alcohol or drug abuse patient.[facility] WestIn the event this information is protected by the Federal Confidentiality of Alcohol and Drug Abuse Patient Records regulations: The Federal rules restrict any use of the information to criminally investigate or prosecute any alcohol or drug abuse patient.[facility] WestIn the event this information is protected by the Federal Confidentiality of Alcohol and Drug Abuse Patient Records regulations: The Federal rules restrict any use of the information to criminally investigate or prosecute any alcohol or drug abuse patient.[facility] WestIn the event this information is protected by the Federal Confidentiality of Alcohol and Drug Abuse Patient Records regulations: The Federal rules restrict any use of the information to criminally investigate or prosecute any alcohol or drug abuse patient.[facility] WestIn the event this information is protected by the Federal Confidentiality of Alcohol and Drug Abuse Patient Records regulations: The Federal rules restrict any use of the information to criminally investigate or prosecute any alcohol or drug abuse patient.[facility] WestIn the event this information is protected by the Federal Confidentiality of Alcohol and Drug Abuse Patient Records regulations: The Federal rules restrict any use of the information to criminally investigate or prosecute any alcohol or drug abuse patient.[facility] WestIn the event this information is protected by the Federal Confidentiality of Alcohol and Drug Abuse Patient Records regulations: The Federal rules restrict any use of the information to criminally investigate or prosecute any alcohol or drug abuse patient.[facility] WestIn the event this information is protected by the Federal Confidentiality of Alcohol and Drug Abuse Patient Records regulations: The Federal rules restrict any use of the information to criminally investigate or prosecute any alcohol or drug abuse patient.[facility] WestIn the event this information is protected by the Federal Confidentiality of Alcohol and Drug Abuse Patient Records regulations: The Federal rules restrict any use of the information to criminally investigate or prosecute any alcohol or drug abuse patient.[facility] WestIn the event this information is protected by the Federal Confidentiality of Alcohol and Drug Abuse Patient Records regulations: The Federal rules restrict any use of the information to criminally investigate or prosecute any alcohol or drug abuse patient.[facility] WestIn the event this information is protected by the Federal Confidentiality of Alcohol and Drug Abuse Patient Records regulations: The Federal rules restrict any use of the information to criminally investigate or prosecute any alcohol or drug abuse patient.[facility] WestIn the event this information is protected by the Federal Confidentiality of Alcohol and Drug Abuse Patient Records regulations: The Federal rules restrict any use of the information to criminally investigate or prosecute any alcohol or drug abuse patient.[facility] WestIn the event this information is protected by the Federal Confidentiality of Alcohol and Drug Abuse Patient Records regulations: The Federal rules restrict any use of the information to criminally investigate or prosecute any alcohol or drug abuse patient.[facility] WestIn the event this information is protected by the Federal Confidentiality of Alcohol and Drug Abuse Patient Records regulations: The Federal rules restrict any use of the information to criminally investigate or prosecute any alcohol or drug abuse patient.[facility] WestIn the event this information is protected by the Federal Confidentiality of Alcohol and Drug Abuse Patient Records regulations: The Federal rules restrict any use of the information to criminally investigate or prosecute any alcohol or drug abuse patient.[facility] WestIn the event this information is protected by the Federal Confidentiality of Alcohol and Drug Abuse Patient Records regulations: The Federal rules restrict any use of the information to criminally investigate or prosecute any alcohol or drug abuse patient.[facility] WestIn the event this information is protected by the Federal Confidentiality of Alcohol and Drug Abuse Patient Records regulations: The Federal rules restrict any use of the information to criminally investigate or prosecute any alcohol or drug abuse patient.[facility] WestIn the event this information is protected by the Federal Confidentiality of Alcohol and Drug Abuse Patient Records regulations: The Federal rules restrict any use of the information to criminally investigate or prosecute any alcohol or drug abuse patient.[facility]In the event this information is protected by the Federal Confidentiality of Alcohol and Drug Abuse Patient Records regulations: The Federal rules restrict any use of the information to criminally investigate or prosecute any alcohol or drug abuse patient.[facility] WestIn the event this information is protected by the Federal Confidentiality of Alcohol and Drug Abuse Patient Records regulations: The Federal rules restrict any use of the information to criminally investigate or prosecute any alcohol or drug abuse patient.[facility] WestIn the event this information is protected by the Federal Confidentiality of Alcohol and Drug Abuse Patient Records regulations: The Federal rules restrict any use of the information to criminally investigate or prosecute any alcohol or drug abuse patient.[facility] WestIn the event this information is protected by the Federal Confidentiality of Alcohol and Drug Abuse Patient Records regulations: The Federal rules restrict any use of the information to criminally investigate or prosecute any alcohol or drug abuse patient.[facility] WestIn the event this information is protected by the Federal Confidentiality of Alcohol and Drug Abuse Patient Records regulations: The Federal rules restrict any use of the information to criminally investigate or prosecute any alcohol or drug abuse patient.[facility] WestIn the event this information is protected by the Federal Confidentiality of Alcohol and Drug Abuse Patient Records regulations: The Federal rules restrict any use of the information to criminally investigate or prosecute any alcohol or drug abuse patient.[facility] WestIn the event this information is protected by the Federal Confidentiality of Alcohol and Drug Abuse Patient Records regulations: The Federal rules restrict any use of the information to criminally investigate or prosecute any alcohol or drug abuse patient.[facility] WestIn the event this information is protected by the Federal Confidentiality of Alcohol and Drug Abuse Patient Records regulations: The Federal rules restrict any use of the information to criminally investigate or prosecute any alcohol or drug abuse patient.[facility] WestIn the event this information is protected by the Federal Confidentiality of Alcohol and Drug Abuse Patient Records regulations: The Federal rules restrict any use of the information to criminally investigate or prosecute any alcohol or drug abuse patient.[facility] WestIn the event this information is protected by the Federal Confidentiality of Alcohol and Drug Abuse Patient Records regulations: The Federal rules restrict any use of the information to criminally investigate or prosecute any alcohol or drug abuse patient.[facility] WestIn the event this information is protected by the Federal Confidentiality of Alcohol and Drug Abuse Patient Records regulations: The Federal rules restrict any use of the information to criminally investigate or prosecute any alcohol or drug abuse patient.[facility] WestIn the event this information is protected by the Federal Confidentiality of Alcohol and Drug Abuse Patient Records regulations: The Federal rules restrict any use of the information to criminally investigate or prosecute any alcohol or drug abuse patient.[facility] WestIn the event this information is protected by the Federal Confidentiality of Alcohol and Drug Abuse Patient Records regulations: The Federal rules restrict any use of the information to criminally investigate or prosecute any alcohol or drug abuse patient.[facility]In the event this information is protected by the Federal Confidentiality of Alcohol and Drug Abuse Patient Records regulations: The Federal rules restrict any use of the information to criminally investigate or prosecute any alcohol or drug abuse patient.[facility] WestIn the event this information is protected by the Federal Confidentiality of Alcohol and Drug Abuse Patient Records regulations: The Federal rules restrict any use of the information to criminally investigate or prosecute any alcohol or drug abuse patient.[facility] WestIn the event this information is protected by the Federal Confidentiality of Alcohol and Drug Abuse Patient Records regulations: The Federal rules restrict any use of the information to criminally investigate or prosecute any alcohol or drug abuse patient.[facility]In the event this information is protected by the Federal Confidentiality of Alcohol and Drug Abuse Patient Records regulations: The Federal rules restrict any use of the information to criminally investigate or prosecute any alcohol or drug abuse patient.[facility] WestIn the event this information is protected by the Federal Confidentiality of Alcohol and Drug Abuse Patient Records regulations: The Federal rules restrict any use of the information to criminally investigate or prosecute any alcohol or drug abuse patient.[facility] WestIn the event this information is protected by the Federal Confidentiality of Alcohol and Drug Abuse Patient Records regulations: The Federal rules restrict any use of the information to criminally investigate or prosecute any alcohol or drug abuse patient.[facility] WestIn the event this information is protected by the Federal Confidentiality of Alcohol and Drug Abuse Patient Records regulations: The Federal rules restrict any use of the information to criminally investigate or prosecute any alcohol or drug abuse patient.[facility] WestIn the event this information is protected by the Federal Confidentiality of Alcohol and Drug Abuse Patient Records regulations: The Federal rules restrict any use of the information to criminally investigate or prosecute any alcohol or drug abuse patient.[facility] WestIn the event this information is protected by the Federal Confidentiality of Alcohol and Drug Abuse Patient Records regulations: The Federal rules restrict any use of the information to criminally investigate or prosecute any alcohol or drug abuse patient.[facility] WestIn the event this information is protected by the Federal Confidentiality of Alcohol and Drug Abuse Patient Records regulations: The Federal rules restrict any use of the information to criminally investigate or prosecute any alcohol or drug abuse patient.[facility] WestIn the event this information is protected by the Federal Confidentiality of Alcohol and Drug Abuse Patient Records regulations: The Federal rules restrict any use of the information to criminally investigate or prosecute any alcohol or drug abuse patient.[facility] WestIn the event this information is protected by the Federal Confidentiality of Alcohol and Drug Abuse Patient Records regulations: The Federal rules restrict any use of the information to criminally investigate or prosecute any alcohol or drug abuse patient.[facility] WestIn the event this information is protected by the Federal Confidentiality of Alcohol and Drug Abuse Patient Records regulations: The Federal rules restrict any use of the information to criminally investigate or prosecute any alcohol or drug abuse patient.[facility] WestIn the event this information is protected by the Federal Confidentiality of Alcohol and Drug Abuse Patient Records regulations: The Federal rules restrict any use of the information to criminally investigate or prosecute any alcohol or drug abuse patient.[facility] WestIn the event this information is protected by the Federal Confidentiality of Alcohol and Drug Abuse Patient Records regulations: The Federal rules restrict any use of the information to criminally investigate or prosecute any alcohol or drug abuse patient.[facility] WestIn the event this information is protected by the Federal Confidentiality of Alcohol and Drug Abuse Patient Records regulations: The Federal rules restrict any use of the information to criminally investigate or prosecute any alcohol or drug abuse patient.[facility] WestIn the event this information is protected by the Federal Confidentiality of Alcohol and Drug Abuse Patient Records regulations: The Federal rules restrict any use of the information to criminally investigate or prosecute any alcohol or drug abuse patient.[facility] WestIn the event this information is protected by the Federal Confidentiality of Alcohol and Drug Abuse Patient Records regulations: The Federal rules restrict any use of the information to criminally investigate or prosecute any alcohol or drug abuse patient.[facility] WestIn the event this information is protected by the Federal Confidentiality of Alcohol and Drug Abuse Patient Records regulations: The Federal rules restrict any use of the information to criminally investigate or prosecute any alcohol or drug abuse patient.[facility] WestIn the event this information is protected by the Federal Confidentiality of Alcohol and Drug Abuse Patient Records regulations: The Federal rules restrict any use of the information to criminally investigate or prosecute any alcohol or drug abuse patient.[facility] WestIn the event this information is protected by the Federal Confidentiality of Alcohol and Drug Abuse Patient Records regulations: The Federal rules restrict any use of the information to criminally investigate or prosecute any alcohol or drug abuse patient.[facility] WestIn the event this information is protected by the Federal Confidentiality of Alcohol and Drug Abuse Patient Records regulations: The Federal rules restrict any use of the information to criminally investigate or prosecute any alcohol or drug abuse patient.[facility]In the event this information is protected by the Federal Confidentiality of Alcohol and Drug Abuse Patient Records regulations: The Federal rules restrict any use of the information to criminally investigate or prosecute any alcohol or drug abuse patient.[facility]In the event this information is protected by the Federal Confidentiality of Alcohol and Drug Abuse Patient Records regulations: The Federal rules restrict any use of the information to criminally investigate or prosecute any alcohol or drug abuse patient.[facility] WestIn the event this information is protected by the Federal Confidentiality of Alcohol and Drug Abuse Patient Records regulations: The Federal rules restrict any use of the information to criminally investigate or prosecute any alcohol or drug abuse patient.[facility] WestIn the event this information is protected by the Federal Confidentiality of Alcohol and Drug Abuse Patient Records regulations: The Federal rules restrict any use of the information to criminally investigate or prosecute any alcohol or drug abuse patient.[facility] WestIn the event this information is protected by the Federal Confidentiality of Alcohol and Drug Abuse Patient Records regulations: The Federal rules restrict any use of the information to criminally investigate or prosecute any alcohol or drug abuse patient.[facility] WestIn the event this information is protected by the Federal Confidentiality of Alcohol and Drug Abuse Patient Records regulations: The Federal rules restrict any use of the information to criminally investigate or prosecute any alcohol or drug abuse patient.[facility] WestIn the event this information is protected by the Federal Confidentiality of Alcohol and Drug Abuse Patient Records regulations: The Federal rules restrict any use of the information to criminally investigate or prosecute any alcohol or drug abuse patient.[facility] WestIn the event this information is protected by the Federal Confidentiality of Alcohol and Drug Abuse Patient Records regulations: The Federal rules restrict any use of the information to criminally investigate or prosecute any alcohol or drug abuse patient.[facility] WestIn the event this information is protected by the Federal Confidentiality of Alcohol and Drug Abuse Patient Records regulations: The Federal rules restrict any use of the information to criminally investigate or prosecute any alcohol or drug abuse patient.[facility]In the event this information is protected by the Federal Confidentiality of Alcohol and Drug Abuse Patient Records regulations: The Federal rules restrict any use of the information to criminally investigate or prosecute any alcohol or drug abuse patient.[facility] WestIn the event this information is protected by the Federal Confidentiality of Alcohol and Drug Abuse Patient Records regulations: The Federal rules restrict any use of the information to criminally investigate or prosecute any alcohol or drug abuse patient.[facility] WestIn the event this information is protected by the Federal Confidentiality of Alcohol and Drug Abuse Patient Records regulations: The Federal rules restrict any use of the information to criminally investigate or prosecute any alcohol or drug abuse patient.[facility]In the event this information is protected by the Federal Confidentiality of Alcohol and Drug Abuse Patient Records regulations: The Federal rules restrict any use of the information to criminally investigate or prosecute any alcohol or drug abuse patient.[facility] WestIn the event this information is protected by the Federal Confidentiality of Alcohol and Drug Abuse Patient Records regulations: The Federal rules restrict any use of the information to criminally investigate or prosecute any alcohol or drug abuse patient.[facility]In the event this information is protected by the Federal Confidentiality of Alcohol and Drug Abuse Patient Records regulations: The Federal rules restrict any use of the information to criminally investigate or prosecute any alcohol or drug abuse patient.[facility] WestIn the event this information is protected by the Federal Confidentiality of Alcohol and Drug Abuse Patient Records regulations: The Federal rules restrict any use of the information to criminally investigate or prosecute any alcohol or drug abuse patient.[facility]In the event this information is protected by the Federal Confidentiality of Alcohol and Drug Abuse Patient Records regulations: The Federal rules restrict any use of the information to criminally investigate or prosecute any alcohol or drug abuse patient.[facility] WestIn the event this information is protected by the Federal Confidentiality of Alcohol and Drug Abuse Patient Records regulations: The Federal rules restrict any use of the information to criminally investigate or prosecute any alcohol or drug abuse patient.[facility] WestIn the event this information is protected by the Federal Confidentiality of Alcohol and Drug Abuse Patient Records regulations: The Federal rules restrict any use of the information to criminally investigate or prosecute any alcohol or drug abuse patient.[facility] WestIn the event this information is protected by the Federal Confidentiality of Alcohol and Drug Abuse Patient Records regulations: The Federal rules restrict any use of the information to criminally investigate or prosecute any alcohol or drug abuse patient.[facility] WestIn the event this information is protected by the Federal Confidentiality of Alcohol and Drug Abuse Patient Records regulations: The Federal rules restrict any use of the information to criminally investigate or prosecute any alcohol or drug abuse patient.[facility] WestIn the event this information is protected by the Federal Confidentiality of Alcohol and Drug Abuse Patient Records regulations: The Federal rules restrict any use of the information to criminally investigate or prosecute any alcohol or drug abuse patient.[facility] WestIn the event this information is protected by the Federal Confidentiality of Alcohol and Drug Abuse Patient Records regulations: The Federal rules restrict any use of the information to criminally investigate or prosecute any alcohol or drug abuse patient.[facility] WestIn the event this information is protected by the Federal Confidentiality of Alcohol and Drug Abuse Patient Records regulations: The Federal rules restrict any use of the information to criminally investigate or prosecute any alcohol or drug abuse patient.[facility] WestIn the event this information is protected by the Federal Confidentiality of Alcohol and Drug Abuse Patient Records regulations: The Federal rules restrict any use of the information to criminally investigate or prosecute any alcohol or drug abuse patient.[facility] WestIn the event this information is protected by the Federal Confidentiality of Alcohol and Drug Abuse Patient Records regulations: The Federal rules restrict any use of the information to criminally investigate or prosecute any alcohol or drug abuse patient.[facility] WestIn the event this information is protected by the Federal Confidentiality of Alcohol and Drug Abuse Patient Records regulations: The Federal rules restrict any use of the information to criminally investigate or prosecute any alcohol or drug abuse patient.[facility] WestIn the event this information is protected by the Federal Confidentiality of Alcohol and Drug Abuse Patient Records regulations: The Federal rules restrict any use of the information to criminally investigate or prosecute any alcohol or drug abuse patient.[facility] WestIn the event this information is protected by the Federal Confidentiality of Alcohol and Drug Abuse Patient Records regulations: The Federal rules restrict any use of the information to criminally investigate or prosecute any alcohol or drug abuse patient.[facility] [place] Reason for Visit (unrecogniz ed section and content) Reason Comments [facility] Discharge Reason Onset Date Comments Refill Request [...] Patient Nail Check Reason Comments ER F/U [facility] Reason Comments Consult Neurology Reason Comments Rash [...] HIGH MDM 60-74 MINUTES Meagan Yusuf PA-C [address] [place] [address] Referral ID Status Reason Start Date Expiration Date V isits Requested Visits Authorized [id number] Closed PCP Requested Referral 02/28/2023 02/28/2024 1 [...] 45 MINS Jarod Godwin V, DO [address] [place] [address] [facility] [address] [place] [address] Referral ID Status Reason Start Date Expiration Date V isits Requested Visits Authorized [id number] Closed Auto-Generate d Referral 07/18/2023 07/17/2024 1 [...] Comments Outside Neurology Reason Comments ER F/U [facility] 11/12/2024 Reason Comments ER F/U [facility] ER Reason Comments Orders for incontinence sup plies Reason Comments Hospital Follow Up Reason Onset Date Comments Refill Request 01/07/2025 Reason Comments Received Outside Medical Records [facility] Adm ission records Reason Comments Forms CMN [...] REHABILITATION 60 MINUTES Homer Bradford MD [address] [place] [address] Phone: tel: fax: [facility] [address] [place] [address] Referral ID Status Reason Start Date Expiration Date V isits Requested Visits Authorized [id number] Closed PCP Requested Referral 12/18/2024 12/18/2025 1 1 Reason Comments Letter Reason Onset Date Comments Refill Request 03/26/2025 Care Teams (unrecognized sec tion and content) Foot Tender Relationship Specialty Start Date End Date Homer Bradford MD [address] [place], [place] [address] PCP - General Family Practice 01/14/14 Foot Tender Relationship Specialty Start Date End Date Homer Bradford MD [address] [place] [address] PCP - General Family Practice 01/14/14 Foot Tender Relationship Specialty Start Date End Date Homer Bradford MD [address] [place] [address] [place] [address] PCP - General Family Practice 01/14/14 Foot Tender Relationship Specialty Start Date End Date Homer Bradford MD [address] [place] [address] [place] [address] PCP - General Family Practice 01/14/14 Foot Tender Relationship Specialty Start Date End Date Homer Bradford MD [address] [place] [address] PCP - General Family Practice 01/14/14 Foot Tender Relationship Specialty Start Date End Date Homer Bradford MD [address] [place] [address] PCP - General Family Practice 01/14/14 Foot Tender Relationship Specialty Start Date End Date Homer Bradford MD [address] [place] [address] [place] [address] PCP - General Family Practice 01/14/14 Foot Tender Relationship Specialty Start Date End Date Homer Bradford MD [address] [place] [address] [place] [address] PCP - General Family Practice 01/14/14 Foot Tender Relationship Specialty Start Date End Date Homer Bradford MD [address] [place] [address] [place] [address] PCP - General Family Practice 01/14/14 Foot Tender Relationship Specialty Start Date End Date Homer Bradford MD [address] [place] [address] [place] [address] PCP - General Family Practice 01/14/14 Foot Tender Relationship Specialty Start Date End Date Homer Bradford MD [address] [facility] [place] [address] PCP - General Family Practice 01/14/14 Foot Tender Relationship Specialty Start Date End Date Homer Bradford MD [facility] [place] [address] PCP - General Family Practice 01/14/14 Foot Tender Relationship Specialty Start Date End Date Homer Bradford MD [facility] [place] [address] PCP - General Family Practice 01/14/14 Foot Tender Relationship Specialty Start Date End Date Homer Bradford MD [address] [place] [address], [place] [address] PCP - General Family Practice 01/14/14 Foot Tender Relationship Specialty Start Date End Date Homer Bradford MD [address] [place] [address] PCP - General Family Medicine 01/14/14 Foot Tender Relationship Specialty Start Date End Date Homer Bradford MD [address] [place] [address] [place] [address] PCP - General Family Medicine 01/14/14 Foot Tender Relationship Specialty Start Date End Date Homer Bradford MD [facility] [place] [address] PCP - General Family Medicine 01/14/14 Foot Tender Relationship Specialty Start Date End Date Homer Bradford MD [facility] [place] [address] PCP - General Family Medicine 01/14/14 Foot Tender Relationship Specialty Start Date End Date Homer Bradford MD [address] [place] [address] [place] [address] PCP - General Family Medicine 01/14/14 Foot Tender Relationship Specialty Start Date End Date Homer Bradford MD [address] [facility] [place] [address] PCP - General Family Medicine 01/14/14 Foot Tender Relationship Specialty Start Date End Date Homer Bradford MD [address] [facility] [place] [address] PCP - General Family Medicine 01/14/14 Foot Tender Relationship Specialty Start Date End Date Homer Bradford MD [address] [facility] [place] [address] PCP - General Family Medicine 01/14/14 Team [...] Dr. Ortiz Pinto MD Emergency Provider Active Foot Tender Relationship Specialty Start Date End Date Homer Bradford MD [address] [facility] [place] [address] PCP - General Family Medicine 01/14/14 Foot Tender Relationship Specialty Start Date End Date Homer Bradford MD [address] [facility] [place] [address] PCP - General Family Medicine 01/14/14 Foot Tender Relationship Specialty Start Date End Date Homer Bradford MD [address] [facility] [place] [address] PCP - General Family Medicine 01/14/14 Foot Tender Relationship Specialty Start Date End Date Homer Bradford MD [address] [facility] [place] [address] PCP - General Family Medicine 01/14/14 Foot Tender Relationship Specialty Start Date End Date Homer Bradford MD [address] [place] [address] PCP - General Family Medicine 01/14/14 Foot Tender Relationship Specialty Start Date End Date Homer Bradford MD [address] [place] [address] PCP - General Family Medicine 01/14/14 Foot Tender Relationship Specialty Start Date End Date Homer Bradford MD [address] [place] [address] PCP - General Family Medicine 01/14/14 Foot Tender Relationship Specialty Start Date End Date Homer Bradford MD [address] [place] [address] PCP - General Family Medicine 01/14/14 Foot Tender Relationship Specialty Start Date End Date Homer Bradford MD [address] [place] [address] PCP - General Family Medicine 01/14/14 Foot Tender Relationship Specialty Start Date End Date Homer Bradford MD [address] [place] [address] PCP - General Family Medicine 01/14/14 Team Status: Inactive Member Role Status Dates Dr. Homer Bradford MD Primary Care Provider Active Taylor Julian PAPER STRIPPER, PAPER STRIPPER-C Attending Provider, Refervaishali michel Provider Active Team Status: Inactive Member Role Status Dates Dr. Homer Bradford MD Primary Care Provider Active Dr. Frank Monroe MD Attending Provider, Emergency Provider Active Foot Tender Relationship Specialty Start Date End Date Homer Bradford MD [address] [place] [address] PCP - General Family Medicine 01/14/14 Foot Tender Relationship Specialty Start Date End Date Homer Bradford MD [address] [place] [address] PCP - General Family Medicine 01/14/14 Foot Tender Relationship Specialty Start Date End Date Homer Bradford MD [address] [place] [address] PCP - General Family Medicine 01/14/14 Team Status: Inactive Member Role Status Dates Dr. Homer Bradford MD Primary Care Provider, Referri Provider Active Taylor Julian PAPER STRIPPER, PAPER STRIPPER-C Attending Provider Active Foot Tender Relationship Specialty Start Date End Date Homer Bradford MD [address] [place] [address] PCP - General Family Medicine 01/14/14 Foot Tender Relationship Specialty Start Date End Date Homer Bradford MD [address] [place] [address] PCP - General Family Medicine 01/14/14 Foot Tender Relationship Specialty Start Date End Date Homer Bradford MD [address] [place] [address] PCP - General Family Medicine 01/14/14 Foot Tender Relationship Specialty Start Date End Date Homer Bradford MD [address] [place] [address] PCP - General Family Medicine 01/14/14 Foot Tender Relationship Specialty Start Date End Date Homer Bradford MD [address] [place] [address] PCP - General Family Medicine 01/14/14 Foot Tender Relationship Specialty Start Date End Date Homer Bradford MD [address] [place] [address] PCP - General Family Medicine 01/14/14 Foot Tender Relationship Specialty Start Date End Date Homer Bradford MD [address] [place] [address] PCP - General Family Medicine 01/14/14 Foot Tender Relationship Specialty Start Date End Date Homer Bradford MD [address] [place] [address] PCP - General Family Medicine 01/14/14 Foot Tender Relationship Specialty Start Date End Date Homer Bradford MD [address] [place] [address] PCP - General Family Medicine 01/14/14 Foot Tender Relationship Specialty Start Date End Date Homer Bradford MD [address] [place] [address] PCP - General Family Medicine 01/14/14 Foot Tender Relationship Specialty Start Date End Date Homer Bradford MD [address] [place] [address] PCP - General Family Medicine 01/14/14 Team Status: Inactive Member Role Status Dates Dr. Homer Bradford MD Primary Care Provider Active Dr. Jennifer Alba MD Attending Provider, Brie johnson Active Foot Tender Relationship Specialty Start Date End Date Homer Bradford MD [address] [place] [address] PCP - General Family Medicine 01/14/14 Foot Tender Relationship Specialty Start Date End Date Homer Bradford MD [address] [place] [address] PCP - General Family Medicine 01/14/14 Foot Tender Relationship Specialty Start Date End Date Homer Bradford MD [address] [place], [place] [address] PCP - General Family Medicine 01/14/14 Foot Tender Relationship Specialty Start Date End Date Homer Bradford MD [address] [place], [place] [address] PCP - General Family Medicine 01/14/14 Mone Dupont APRN.SAFETY COMPLIANCE SPECIALIST [address] [place], [place] [id number] [employer] [employer] 06/23/24 Meagan Yusuf PA-C [address] [place], [place] [id number] [facility] Team Status: Active Member Role [...] 2024 End: September 21, 2024 Dr. Stuart Balbuean MD Other Provider Active Start : September [...] Butcher MD Other Provider Active Start: [facility] 2024 Dr. Kristen Simons MD Other Provider [...] Jonathan Butcher MD Other Provider Active Start: [facility] 2024 Dr. Kristen Simons MD Other [...] Jonathan Butcher MD Other Provider Active Start: [facility] 2024 Dr. Kristen Simons MD Other Provider [...] Jonathan Butcher MD Other Provider Active Start: [facility] 2024 Dr. Kristen Simons MD Other Provider [...] Jonathan Butcher MD Other Provider Active Start: [facility] 2024 Dr. Kristen Simons MD Other Provider [...] Jonathan Butcher MD Other Provider Active Start: [facility] 2024 Dr. Kristen Simons MD Other Provider [...] Jonathan Butcher MD Other Provider Active Start: [facility] 2024 Dr. Kristen Simons MD Other Provider [...] Jonathan Butcher MD Other Provider Active Start: [facility] [address]24 Dr. Kristen Simons MD Other Provider [...] Jonathan Butcher MD Other Provider Active Start: [facility] [address]24 Dr. Kristen Simons MD Other Provider [...] Attending Provider Active Start: November 04, 2024 Foot Tender Relationship Specialty Start Date End Date Homer Bradford MD [address] [place], [place] [id number] PCP - General Family Medicine 10/22/24 Mone Dupont APRN.SAFETY COMPLIANCE SPECIALIST [address] [place] [address] [facility] 06/23/24 Meagan Yusuf PA-C [address] [place] [address] [facility] 06/23/24 Foot Tender Relationship Specialty Start Date End Date Homer Bradford MD [address] [place] [address] PCP - General Family Medicine 10/22/24 Mone Dupont APRN.SAFETY COMPLIANCE SPECIALIST [facility] [place] [address] [facility] 06/23/24 Meagan Yusuf PA-C [address] [place] [address] [facility] 06/23/24 Foot Tender Relationship Specialty Start Date End Date Homer Bradford MD [address] [place] [address] PCP - General Family Medicine 10/22/24 Meagan Yusuf PA-C [address] [place] [address] [facility] Foot Tender Relationship Specialty Start Date End Date Homer Bradford MD [address] [place] [address] PCP - General Family Medicine 10/22/24 Mone Dupont APRN.SAFETY COMPLIANCE SPECIALIST [facility] [place] [address] [facility] 12/17/24 Meagan Yusuf PA-C [address] [place] [address] [facility] 12/17/24 Foot Tender Relationship Specialty Start Date End Date Homer Bradford MD [address] [place] [address] PCP - General Family Medicine 10/22/24 Mone Dupont APRN.SAFETY COMPLIANCE SPECIALIST [address] [place] [address] [facility] 12/17/24 Meagan Yusuf PA-C [address] [place] [address] [facility] 12/17/24 Foot Tender Relationship Specialty Start Date End Date Homer Bradford MD [address] [place] [address] PCP - General Family Medicine 10/22/24 Mone uDpont APRN.SAFETY COMPLIANCE SPECIALIST [facility] [place] [address] [facility] 12/17/24 Meagan Yusuf PA-C [address] [place] [address] [facility] 12/17/24 Foot Tender Relationship Specialty Start Date End Date Homer Bradford MD [address] [place] [address] PCP - General Family Medicine 10/22/24 Mone Dupont, THROUGH OPERATOR.SAFETY COMPLIANCE SPECIALIST [address] [place] [address] [facility] 12/17/24 Meagan Yusuf PA-C [address] [place] [address] [facility] 12/17/24 Team Status: Inactive Member Role Status [...] Attending Provider Active Start: January 08, 2025 Foot Tender Relationship Specialty Start Date End Date Homer Bradford MD [address] [place] [address] PCP - General Family Medicine 10/22/24 Mone Dupont APRN.CNP [address] [place] [address] [facility] 12/17/24 Meagan Yusuf PA-C [address] [place] [address], [place] [address] [facility] 12/17/24 Team Status: Active Member [...] Jonathan Butcher MD Other Provider Active Start: [facility]2024 End: September 21, 2024 Dr. Kristen Simons [...] 2024 End: September 21, 2024 Dr. Frank Yusfu MD Other Provider Active St art: September [...] Jonathan Butcher MD Other Provider Active Start: [facility] 2024 Dr. Kristen Simons MD Other Provider [...] Jonathan Butcher MD Other Provider Active Start: [facility] 2024 Dr. Kristen Simons MD Other Provider [...] Jonathan Butcher MD Other Provider Active Start: [facility] [address]24 Dr. Kristen Simons MD Other Provider [...] Jonathan Butcher MD Other Provider Active Start: [facility] [address] Dr. Kristen Simons MD Other Provider [...] Jonathan Butcher MD Other Provider Active Start: [facility] 2024 Dr. Kristen Simons MD Other Provider [...] Active Start : September 19, 2024 Dr. Eilsabeth Yung MD Other Provider Active Sta rt: [...] Jonathan Butcher MD Other Provider Active Start: [facility] 2024 Dr. Kristen Simons MD Other Provider [...] Jonathan Butcher MD Other Provider Active Start: [facility] [address]24 Dr. Kristen Simons MD Other Provider [...] Provider Active Start: September 21, 2024 Martha Ireen MD Other Provider Active Start: September 21, [...] Other Provider Active Start: January 11, 2025 Foot Tender Relationship Specialty Start Date End Date Homer Bradford MD [address] [place] [address] PCP - General Family Medicine 10/22/24 Mone Dupont APRN.SAFETY COMPLIANCE SPECIALIST [address] [place] [address] [facility] 12/17/24 Meagan Yusuf PA-C [address] [place] [address] [facility] 12/17/24 Foot Tender Relationship Specialty Start Date End Date Homer Bradford MD [address] [place] [address] PCP - General Family Medicine 10/22/24 Mone Dupont, JACKIE.SAFETY COMPLIANCE SPECIALIST [address] [place] [address] [facility] 12/17/24 Meagan Yusuf PA-C [address] [place] [address] [facility] 12/17/24 Foot Tender Relationship Specialty Start Date End Date Homer Bradford MD [address] [place] [address] PCP - General Family Medicine 10/22/24 Mone Dupont APRN.SAFETY COMPLIANCE SPECIALIST [address] [place] [address] [facility] 12/17/24 Meagan Yusuf PA-C [address] [place] [address] [facility] 12/17/24 Foot Tender Relationship Specialty Start Date End Date Homer Bradford MD [address] [place] [address] PCP - General Family Medicine 10/22/24 Mone Dupont APRN.SAFETY COMPLIANCE SPECIALIST [address] [place] [address] [facility] 12/17/24 Meagan Yusuf PA-C [address] [place] [address] [facility] 12/17/24 Team Status: Active Member Role/Relationship Status [...] End: January 31, 2025 Taylor Julian NP, PAPER STRIPPER-C Attending Provider Active Start: January 31, 2025 [...] End: January 31, 2025 Taylor Julian NP, PAPER STRIPPER-C Attending Provider Active Start: January 31, 2025 [...] February 27, 2025 End: February 27, 2025 Foot Tender Relationship Specialty Start Date End Date Homer Bradford MD [address] [place] [address] PCP - General Family Medicine 10/22/24 Mone Dupont APRN.SAFETY COMPLIANCE SPECIALIST [address] [place] [id number] [facility] 12/17/24 Meagan Yusuf PA-C [address] [place] [phone] [facility] 12/17/24 Team Status: Inactive Member Role/Relationship Status [...] 2025 End: January 31, 2025 Taylor Julian PAPER STRIPPER, PAPER STRIPPER-C Attending Provider Active Start: January 31, 2025 [...] March 11, 2025 End: March 11, 2025 Foot Tender Relationship Specialty Start Date End Date Homer Bradford MD [address] [place] [id number] PCP - General Family Medicine 10/22/24 Mone Dupont APRN.CNP [address] [place] [phone] [facility] 12/17/24 Meagan Yusuf PA-C [address] [place] [phone] [facility] 12/17/24 Team Status: Inactive Member Role/Relationship Status [...] Active St art: January 10, 2025 Dr. Petre Herbert MD Other Provider Active Sta rt: [...] 2025 End: January 31, 2025 Dr. Homer Brafdord MD Referring Provider Active Start: January 31, 2025 End: January 31, 2025 Taylor Julian PAPER STRIPPER, PAPER STRIPPER-C Attending Provider Active Start: January 31, 2025 [...] March 11, 2025 End: March 11, 2025 Foot Tender Relationship Specialty Start Date End Date Homer Bradford MD [address] [place], [place] [id number] PCP - General Family Medicine 10/22/24 Mone Dupont, JACKIE.CHIRAG [address] [place], [place] [phone] [facility] 12/17/24 Meagan Yusuf PA-C [address] [place] [phone] [facility] 12/17/24 Foot Tender Relationship Specialty Start Date End Date Homer Bradford MD [address] [place], [place] [phone] PCP - General Family Medicine 10/22/24 Mone Dupont APRN.CHIRAG [address] [place], [place] [address] [facility] 12/17/24 Meagan Yusuf PA-C [address] [place] [address] [facility] 12/17/24 Team Status: Active Member Role/Relationship Status [...] 2025 End: January 31, 2025 Taylor Julian PAPER STRIPPER, PAPER STRIPPER-C Attending physician Active Start: January 31, 2025 [...] 2025 End: January 31, 2025 Taylor Julian PAPER STRIPPER, PAPER STRIPPER-C Attending physician Active Start: January 31, 2025 [...] 2025 Dr. Ortiz Pinto MD [facility] Phys[facility] Active Start: April 30, 2025 [...] BE BASED ON THE PRIMARY CLINICAL RECORDS. [facility]. provides no warranty or guarantee of the accuracy or completeness of information in this document.
--- NOTE | 2025-06-30 16:31 | US_ITS ---
PROCEDURE: THORACENTESIS W US 07/01/2025 REASON FOR EXAM: RIGHT PLEURAL EFFUSION TECHNIQUE: THORACENTESIS W US, right. COMPARISON: CT examination of 06/30/2025. FINDINGS: Following informed consent, an using standard sterile technique, an ultrasound- guided right thoracentesis was performed via a posterior approach. 2% lidocaine local anesthesia was followed by placement of a 5 Citizen [place] Yueh catheter into the right pleural fluid collection. Approximately 1300 mL blood-tinged fluid was then successfully removed. No complication was encountered, and the patient left the department in good condition without significant complaint. US/Thoracentesis W US IMPRESSION: Successful ultrasound-guided right therapeutic thoracentesis. Reading Location: [place] [address]
--- NOTE | 2025-06-30 17:42 | CT_ITS ---
PROCEDURE: CTA ABD/PELVIS W/WO CONTRAST 06/30/2025 REASON FOR EXAM: LUNG CANCER Lung cancer. TECHNIQUE: Procedure Code: [id number] Modality: CT Procedure: CTA ABD/PELVIS W/WO CONTRAST Multiplanar Sagittal and Coronal images were obtained. Two-dimensional and three-dimensional reconstructions were obtained. CONTRAST: Isovue 370. VOLUME: 100 mL One or more dose reduction techniques were used (e.g., Automated exposure control, adjustment of the mA and/or kV according to patient size, use of iterative reconstruction technique). RADIATION DOSE SUMMARY: CTDlvol: 90 mGy DLP: 2845 mGycm COMPARISON: Earlier today's CT. FINDINGS: Lung bases: Large right-sided pleural effusion with compressive atelectasis of portions of the imaged right middle lobe and right lower lobe with mediastinal shift towards the left. Scratch ABDOMEN Liver: Negative. Biliary system: Negative. Negative for intrahepatic or extrahepatic ductal dilatation. Gallbladder: Negative. Negative for cholecystitis. Spleen: Negative. Pancreas: Negative. Adrenals: Negative. Kidneys: Bilateral renal atrophy consistent with renal disease. Residual contrast noted from earlier today's CT consistent with renal failure. Negative. Negative for kidney stones, cysts or masses. Bowel: Increased stool throughout the colon. Occasional diverticula. Negative for small or large-bowel obstruction. Appendix: Negative Vasculature: Additional thin slice images were obtained through the abdominal aorta its branches. Mesenteric vessels negative. Vascular disease of the renal arteries and branches. No active bleeding. Negative for atherosclerotic vascular calcifications of the abdominal aorta and its branches. Peritoneum / Retroperitoneum: No free fluid. Negative. PELVIS Lymph nodes: Negative for inguinal or iliac adenopathy. Bladder: Negative. Reproductive Organs: Uterus negative. Bones and Soft Tissues: Moderate degenerative changes of the mid to lower lumbar spine. Negative for fracture. CT/CTA Abd/Pelvis W/WO Contrast IMPRESSION: Negative CTA of the abdomen and pelvis. Large right-sided pleural fluid. Reading Location: [id number]
[2025-06-30 17:47] LABS: Reflex Lactate? Y
[2025-06-30] MEDS: Potassium Chloride Oral Tablet 20 MEQ PO (17:48)
[2025-06-30] MEDS: KCL 20MEQ in 0.9% NS 20 MEQ/1,000 ML IV.SOLN. 75 MEQ IV (17:49)
[2025-06-30 17:54] LABS: Troponin T High Sens 4 HR 22 ng/L (<=14)
--- NOTE | 2025-06-30 18:05 | HP.PCM.HOS_ITS ---
HPI - General General Date of Admission: 06/30/25 Date of Service: 06/30/25 Chief Complaint: Shortness of breath, concern for pneumonia HPI Narrative PERNELL FISHER, is a 65 F who presents to the emergency room at [facility] with complaints of shortness of breath and concern for pneumonia. She had been hospitalized approximately a month ago and placed on antibiotics at that time and corticosteroids. Review of the patient's medical record shows that she underwent a thoracentesis in May, the fluid resulted in showing adenocarcinoma-I went over this with the patient and she did not know that she had cancer-no one informed her. She states she had an appointment with pulmonary medicine for follow-up but it was canceled by the office, she also said she saw her PCP but he did not mention anything about lung cancer and placed her on antibiotic for possible pneumonia. Workup in the emergency room included a CT of the chest which showed a large right pleural effusion, compressive atelectasis of the right lower lobe was noted, there was some indication there might be a right upper lobe infiltrate. Patient's white blood cell count was 14, hemoglobin was 16.4, chemistry profile was abnormal for a potassium of 2.7, creatinine was 1.36, and lactic acid was 2.9. Patient's first 2 troponins were 27 and 27. Patient's COVID, influenza, and RSV panel was negative. Patient will be admitted to [place] [id number] for hypoxia with malignant right pleural effusion, due to her Eliquis usage she may not undergo thoracentesis until Tuesday of this week, patient is not sure why she takes Eliquis. It appears from her medical record that she has paroxysmal atrial fibrillation. [facility] Medical History Pleural effusion on right Elevated troponin Elevated d-dimer Erythrocytosis Pleural effusion, right Osteoporosis Kidney disease CKD stage 3b, GFR 30-44 ml/min Overactive bladder Decubitus ulcer of buttock, stage 1 Encounter for smoking cessation counseling History of COPD Urinary tract infection History of echocardiogram Wears glasses Anxiety Depression Post-menopausal History of renal disease High cholesterol Back pain TIA (transient ischemic attack) Gastric reflux Smoker Shortness of breath on exertion History of pain when walking History of edema Cardiology follow-up encounter History of heart attack Chest pain History of left heart catheterization (LHC) (~12/30/20) CKD (chronic kidney disease) stage 3, GFR 30-59 ml/min Lung nodule COPD (chronic obstructive pulmonary disease) Paroxysmal atrial fibrillation Elevated liver enzymes Acute respiratory failure with hypoxia Stroke IBS (irritable bowel syndrome) Hyperlipidemia Heart disease Migraines Frequent headaches Gastrointestinal problem Diabetes History of back problems Asthma Arthritis Home Medications ?Medication ?Instructions ?Recorded ?Last Taken ?Type apixaban 5 mg tablet (Eliquis) 5 mg PO Q12 #60 tabs Unknown Rx quetiapine 100 mg tablet 200 mg (2 x 100 mg) PO BID # 120 11/07/24 Unknown Rx tabs lorazepam 0.5 mg tablet 0.5 mg PO Q12H PRN anxiety 0 11/14/24 Unknown History lovastatin 40 mg tablet 20 mg PO QHS 11/14/24 Unknow n History omeprazole 40 mg capsule,delayed 40 mg PO DAILY Unknown History release aspirin 81 mg capsule 81 mg PO DAILY 01/08/25 Unkn own History mupirocin 2 % topical ointment 1 applic topical TID Unknown History quetiapine 200 mg tablet,extended 200 mg PO DAILY 01/15 12/09 Unknown History release 24 hr vibegron 75 mg tablet (Gemtesa) 75 mg PO DAILY 5 Unknown History citalopram 10 mg tablet 10 mg PO DAILY 01/31/25 Unkn own History ipratropium 0.5 mg-albuterol 3 mg 3 ml continuous nebu lization ONCE 01/31/25 Unknown Clinic (2.5 mg base)/3 mL nebulization shortness of breath #3 mL soln ipratropium 0.5 mg-albuterol 3 mg 3 ml inhalation Q20M PRN shortness 01/31/25 Unknown Rx (2.5 mg base)/3 mL nebulization of breath 1 month #90 mL soln nitroglycerin 0.4 mg sublingual 0.4 mg sublingual ELZA Y 01/31/25 Unknown History tablet Gemtesa 75 mg tablet (vibegron) 75 mg PO QDAY #90 tabs 02/27/25 Unknown Rx methenamine hippurate 1 gram tablet 1 g PO BID #180 ta bs 02/27/25 Unknown Rx albuterol sulfate 90 mcg/actuation 2 puff inhalation Q 6H PRN 04/24/25 Unknown Rx aerosol inhaler shortness of breath or wheez ing #8.5 grams albuterol sulfate 90 mcg/actuation 1 - 2 puff inhalati on Q4H PRN PRN 04/30/25 Unknown Rx aerosol inhaler (Ventolin HFA) Wheezing ##1 trazodone 100 mg tablet 100 mg PO QHS 05/24/25 Unkno wn History furosemide 20 mg tablet 20 mg PO DAILY #30 tabs 05/18 08/11 Unknown Rx ipratropium 0.5 mg-albuterol 3 mg 3 ml inhalation Q4H PRN shortness 05/28/25 Unknown Rx (2.5 mg base)/3 mL nebulization of breath or wheezing #180 mL soln levofloxacin 750 mg tablet 750 mg PO DAILY #4 tabs 06/11 Unknown Rx prednisone 20 mg tablet 40 mg (2 x 20 mg) PO DAILY # 10 tabs 05/28/25 Unknown Rx Allergy/AdvReac Type Severity Reaction Status Date / Time Penicillins Allergy Intermediate Hives Verified 06/30/25 13:07 carbamazepine (From Tegretol) AdvReac Intermediate Nausea Verified 06/30/25 13:07 benztropine AdvReac Unknown Verified 06/30/25 13:07 diazepam (From Valium) AdvReac Other Verified 06/30/25 13:07 Sulfa (Sulfonamide AdvReac Nausea Verified 06/30/25 13:07 Antibiotics) thioridazine AdvReac Nausea Verified 06/30/25 13:07 thioridazine HCl (From AdvReac Other Verified 06/30/25 13:07 Mellaril) Family History Grandmother Cancer stomach Father Cancer lung Sister Breast cancer Surgical History Hx of surgical procedure History of carpal tunnel surgery History of elbow surgery H/O shoulder surgery H/O hand surgery H/O dilation and curettage Hx of cholecystectomy History of tonsillectomy Social History housing: homeless Smoking Status: Heavy Smoker (>10/day) alcohol intake: never substance use type: does not use caffeine: Yes what type of physical activity do you participate in: walking seatbelt use: always do you feel safe at home: Yes ROS Constitutional Constitutional: Denies anorexia, change in weight, chills, fatigue, fever(s), malaise, night sweats or weakness Eyes Eyes: Denies blurry vision, change in vision, discharge from eye(s) or eye pain Cardiovascular Cardiovascular: Reports dyspnea on exertion; Denies chest pain, claudication, edema or palpitations Respiratory/Chest Respiratory/Chest: Reports cough, shortness of breath at rest and shortness of breath with exertion; Denies hemoptysis Gastrointestinal Gastrointestinal: Denies abdominal pain, constipation, diarrhea, hematemesis, hematochezia, melena, nausea or vomiting Genitourinary Genitourinary: Denies dysuria, hematuria, urinary frequency, urinary hesitancy, urinary incontinence or urinary urgency Musculoskeletal Musculoskeletal: Denies back pain, joint pain, joint stiffness, joint swelling, myalgias or neck pain Neurologic Neurologic: Denies abnormal gait, abnormal speech, dizziness, focal weakness, headache(s), loss of vision, numbness, other visual disturbances, paresthesias, syncope or tingling Psychiatric Psychiatric: Reports other Details: Bipolar disorder ; Denies anxiety, cognitive impairment, depression, irritability, mood swings or suicidal ideation Endocrine Endocrinology: Denies change in body appearance, cold intolerance, excessive sweating, heat intolerance, polydipsia or polyuria Hematologic/Lymphatic Hematologic/Lymphatic: Denies none, anemia, easy bleeding, easy bruising or lymphadenopathy Allergic/Immunologic Allergic/Immunologic: Denies rhinitis, urticaria, eczemia or asthma Vital Signs Vital Signs Vital Signs: 06/30/25 13:07 06/30/25 13:20 06/30/25 13:21 Temperature 97.9 F 97.9 F Temperature Source Temporal Oral Pulse Rate 105 H 115 H Respiratory Rate 26 H 28 H Respiratory Effort Short of Breath Respiratory Depth Normal Respiratory Pattern Tachypnea Blood Pressure 155/121 H 115/66 Blood Pressure Mean 132 82 Blood Pressure Source Blood Pressure Position Blood Pressure Location Pulse Ox 94 94 Oxygen Delivery Method Room Air Nasal Cannula Nasal Cannula Oxygen Flow Rate (L/min) 3 3 06/30/25 13:25 06/30/25 13:36 06/30/25 14:07 Temperature Temperature Source Pulse Rate 107 H 94 Respiratory Rate 20 H 32 H Respiratory Effort Respiratory Depth Respiratory Pattern Normal Blood Pressure 133/94 H Blood Pressure Mean 107 Blood Pressure Source Blood Pressure Position Blood Pressure Location Pulse Ox 97 Oxygen Delivery Method Nasal Cannula Room Air Oxygen Flow Rate (L/min) 3 3 06/30/25 14:07 06/30/25 14:21 06/30/25 15:00 Temperature 97.8 F 98.3 F Temperature Source Oral Oral Pulse Rate 100 103 H 98 Respiratory Rate 30 H 26 H Respiratory Effort Respiratory Depth Respiratory Pattern Blood Pressure 114/93 H 114/93 H 114/76 Blood Pressure Mean 100 100 88 Blood Pressure Source Blood Pressure Position Blood Pressure Location Pulse Ox 96 95 92 Oxygen Delivery Method Nasal Cannula Nasal Cannula Oxygen Flow Rate (L/min) 3 1 06/30/25 16:00 06/30/25 16:02 06/30/25 17:03 Temperature 98.1 F 98.1 F 98.0 F Temperature Source Oral Oral Pulse Rate 91 91 92 Respiratory Rate 21 H 21 H 21 H Respiratory Effort Respiratory Depth Respiratory Pattern Blood Pressure 119/87 H 119/87 H 105/69 Blood Pressure Mean 97 97 81 Blood Pressure Source Monitor Blood Pressure Position Semi-Fowlers Blood Pressure Location Right Arm Pulse Ox 95 95 91 Oxygen Delivery Method Nasal Cannula Nasal Cannula Oxygen Flow Rate (L/min) 1 1 Weight Weight: 104.326 kg Body Mass Index (BMI) 40.7 Physical Exam Const alert, oriented x3 and no apparent distress Constitutional Narrative: Patient has class III obesity General Appearance: cooperative, well kempt and well developed Orientation / Consciousness: awake, oriented to person, oriented to place and oriented to time HEENT normocephalic, head/scalp atraumatic, hearing grossly normal bilaterally and moist oral mucous membranes Eyes PERRL, EOMs intact bilaterally and conjunctivae normal Neck supple, no JVD, thyroid normal and no carotid bruits General: trachea midline Resp normal respiratory effort, no retractions and no use of accessory muscles Resp Narrative: Breast diminished over the right lung field Auscultation: Negative for rales, rhonchi or wheezes Cardio regular rate, regular rhythm, S1 normal heart sound, S2 normal heart sound, no murmurs, no rub and no gallops GI normal to inspection, nondistended, normoactive bowel sounds, soft to palpation, non-tender and non-distended Extremity no clubbing, cyanosis or edema Skin no rashes or lesions noted General Skin Exam: no breakdown Neuro oriented x3, CN's II-XII intact bilaterally, moves all extremities, no focal motor deficits and no sensory deficits noted Sensorium / Orientation: awake and alert Speech: speech normal Psych Psych Narrative: Patient is a poor informant Results Lab / Micro Data 06/30/25 13:36 06/30/25 13:36 Labs: Laboratory Results - last 24 hr 06/30/25 13:36: WBC 14.0 H, RBC 5.28, Hgb 16.4 H, Hct 50.6 H, MCV 95.8, MCH 31.1, MCHC 32.4, RDW Std Deviation 51.8 H, RDW Coeff of Robert 14.6, Plt Count 266, MPV 11.1, Immature Gran % (Auto) 0.200, Neut % (Auto) 82.3 H, Lymph % (Auto) 8.3 L, [place] % (Auto) 7.9, Eos % (Auto) 0.9, Baso % (Auto) 0.4, Absolute Neuts (auto) 11.5 H, Absolute Lymphs (auto) 1.16, Nucleated RBC % 0, Sodium 141, Potassium 2.7 L*, Chloride 101, Carbon Dioxide 23.5, Anion Gap 16 H, BUN 11, Creatinine 1.36 H, Est GFR (MDRD) Non-Af 44 L, BUN/Creatinine Ratio 7.9 L, Glucose 108 H, L actic Acid 2.9 H*, Calcium 9.4, Troponin T High Sens 27 H D, NT pro BNP II 148 06/30/25 15:28: Troponin T Hi Sens 2 Hr 27 H 06/30/25 17:26: Troponin T Hi Sens 4Hr 22 H Micro: Microbiology 06/30/25 13:58 Mucosa - Nose SARS-CoV-2, Influenza & RSV (PCR) - Final ABG Data ABG results: ABG 06/30/25 13:42 Specimen Type TYRON Sample Site Not entered VBG pH 7.39 VBG pO2 23 L VBG HCO3 25 VBG Total CO2 26 VBG O2 Sat (Calc) 39 L VBG Base Excess 0 POC Mix VBG pCO2 Pt Tmp 41.1 O2 Delivery Device Not entered Imaging Radiology Impression Chest CTA 06/30/25 13:24 IMPRESSION: 1. Compressive atelectasis right middle lobe right lower lobe from [id number] pleural effusion; interval increase in size of pleural effusion.. Some ground-glass opacity is seen in the right upper lobe. A pneumonitis not excluded in the right upper lobe. Likely reactive right lower paratracheal lymph node. 2. Left lung is clear. Reading Location: [id number] Assessment & Plan Assessment/Plan (1) Malignant pleural effusion: PLAN: Plan 1. Hypoxia secondary to right malignant pleural effusion from adenocarcinoma- patient will be admitted to [facility] 3, she may be able to undergo thoracentesis tomorrow, if not tomorrow Tuesday, I talked informally with Dr. Calvo today because the patient is a [facility] patient, he requested a CT of the abdomen and pelvis to be obtained. Patient has a poor support network-she currently lives in a homeless senior care. #2 hypokalemia-patient will be given potassium supplementation orally and in her IV fluid, BMP will be repeated tomorrow #3 leukocytosis-possibly from corticosteroid usage, it is hard to determine when she last took the corticosteroids, she does not currently fit a pneumonia at this time although if she runs a temperature that would be a possibility. #4 class III obesity-complicates care, management, recovery, and prognosis #5 chronic depression/bipolar disorder-patient is on citalopram and Seroquel #6 chronic obstructive pulmonary disease-I will place the patient on DuoNeb aerosols, she is still smoking approximately half a pack of cigarettes a day. #7 hyperlipidemia-patient is on lovastatin #8 stage IIIb chronic kidney disease-complicates care, management, recovery, and prognosis #9 paroxysmal [id number]-[id number] is not on any rate control medications, her Eliquis will be held Total clinical time spent by myself addressing the patient's medical issues, reviewing all of her data, and collaborating with patient's care team: 55 minutes Charges/Coding Visit Charges Inpatient E&M: 67953 Init Hosp L2
[2025-07-01] VITALS (9 sets, daily range): BP systolic 96–142; BP diastolic 50–73; PULSE 93–106; RESP 16–24; TEMP 36.2–36.8; O2SAT 91–96
[2025-07-01 06:39] LABS: Hematocrit 49.8 % (37-47); Hemoglobin 16.1 g/dL (12.0-15.0); Immature Granulocytes Count 0.080 X10^3/uL (0.0-0.0); Mean Corp Hgb Conc 32.3 g/dL (32-36); Mean Corpuscular Volume 96.1 fL (81-99); Mean Platelet Vol. 11.6 fl (6.2-12.0); NRBC Flagged by Analyzer 0.1 % (0-5); Platelet Count 247 K/mm3 (150-450); RBC Distribution Width CV 14.6 % (11.6-14.6); RBC Distribution Width SD 52.7 fl (35.1-43.9); Red Blood Count 5.18 M/mm3 (4.2-5.4); White Blood Count 13.4 K/mm3 (4.4-11.0)
[2025-07-01 07:01] LABS: Anion Gap 13 (5-15); BUN 12 mg/dL (4-19); BUN/Creat Ratio 9.8 RATIO (10-20); Calcium,Total 9.7 mg/dL (7.6-11.0); Carbon Dioxide 23.5 mmol/L (21.0-32.0); Chloride 108 mmol/L (98-108); Estimated Creatinine Clearance 53.64 ml/min (50-250); Glucose 136 mg/dL (70-99); Potassium 3.2 mmol/L (3.3-5.1)
[2025-07-01] MEDS: Potassium Chloride Oral Tablet 20 MEQ 40 MEQ PO (08:52)
[2025-07-01 09:15] LABS: Partial Thromboplast Time 28.0 Seconds (24.1-36.2); Prothrombin Time (Protime)PT. 13.2 SECONDS (11.7-14.9)
--- NOTE | 2025-07-01 11:10 | PN_ITS ---
Subjective Subjective Patient seen and examined with her nurse by her bedside. She denies any shortness of breath or coughing, chest pain, palpitations, dizziness, nausea, vomiting or any other symptoms. Review of systems is otherwise negative. SHe is due for thoracentesis today. She is on 3L of oxygen. Objective Data Objective Data Vital Signs: Vital Signs Temp Pulse Resp BP Pulse Ox O2 Del Method O2 Flow Rate 97.8 F 98 18 96/50 L 91 Nasal Cannula 3 07/01/25 08:35 07/01/25 08:35 07/01/25 08:35 07/01/25 08:35 07/01/25 08:35 07/01/25 08:43 07/01/25 08:43 Oxygen Flow Rate (L/min) 3 Oxygen Delivery Method Nasal Cannula Weight: 230 lb Body Mass Index (BMI) 40.7 Intake & Output: Intake and Output for Last 24 Hours 06/29/25 06/30/25 07/01/25 23:59 23:59 23:59 Intake Total 1450 / 1450 480 / 480 Balance 1450 / 1450 480 / 480 Lab / Micro Data 07/01/25 05:50 07/01/25 05:50 Labs: Laboratory Results - last 24 hr 06/30/25 13:36: WBC 14.0 H, RBC 5.28, Hgb 16.4 H, Hct 50.6 H, MCV 95.8, MCH 31.1, MCHC 32.4, RDW Std Deviation 51.8 H, RDW Coeff of Robert 14.6, Plt Count 266, MPV 11.1, Immature Gran % (Auto) 0.200, Neut % (Auto) 82.3 H, Lymph % (Auto) 8.3 L, [place] % (Auto) 7.9, Eos % (Auto) 0.9, Baso % (Auto) 0.4, Absolute Neuts (auto) 11.5 H, Absolute Lymphs (auto) 1.16, Nucleated RBC % 0, Sodium 141, Potassium 2.7 L*, Chloride 101, Carbon Dioxide 23.5, Anion Gap 16 H, BUN 11, Creatinine 1.36 H, Est GFR (MDRD) Non-Af 44 L, BUN/Creatinine Ratio 7.9 L, Glucose 108 H, L actic Acid 2.9 H*, Calcium 9.4, Troponin T High Sens 27 H D, NT pro BNP II 148 06/30/25 15:28: Troponin T Hi Sens 2 Hr 27 H 06/30/25 17:26: Troponin T Hi Sens 4Hr 22 H 06/30/25 18:27: Lactic Acid 1.5 07/01/25 05:50: WBC 13.4 H, RBC 5.18, Hgb 16.1 H, Hct 49.8 H, MCV 96.1, MCH 31.1, MCHC 32.3, RDW Std Deviation 52.7 H, RDW Coeff of Robert 14.6, Plt Count 247, MPV 11.6, Immature Gran % (Auto) 0.600, Neut % (Auto) 91.6 H, Lymph % (Auto) 5.4 L, [place] % (Auto) 2.3, Eos % (Auto) 0.0, Baso % (Auto) 0.1, Absolute Neuts (auto) 12.3 H, Absolute Lymphs (auto) 0.72 L, Nucleated RBC % 0.1, Sodium 144, P otassium 3.2 L, Chloride 108, Carbon Dioxide 23.5, Anion Gap 13, BUN 12, C reatinine 1.24 H, Estim Creat Clear Calc 53.64, Est GFR (MDRD) Non-Af 49 L, B UN/Creatinine Ratio 9.8 L, Glucose 136 H, Calcium 9.7 07/01/25 08:50: PT 13.2, INR 1.0, APTT 28.0 Micro: Microbiology 06/30/25 13:58 Mucosa - Nose SARS-CoV-2, Influenza & RSV (PCR) - Final ABG Data ABG results: ABG 06/30/25 13:42 Specimen Type TYRON Sample Site Not entered VBG pH 7.39 VBG pO2 23 L VBG HCO3 25 VBG Total CO2 26 VBG O2 Sat (Calc) 39 L VBG Base Excess 0 POC Mix VBG pCO2 Pt Tmp 41.1 O2 Delivery Device Not entered Radiography Diagnostic Testing: Radiology Impression Chest CTA 06/30/25 13:24 IMPRESSION: 1. Compressive atelectasis right middle lobe right lower lobe from [id number] pleural effusion; interval increase in size of pleural effusion.. Some ground-glass opacity is seen in the right upper lobe. A pneumonitis not excluded in the right upper lobe. Likely reactive right lower paratracheal lymph node. 2. Left lung is clear. Reading Location: [id number] Abdomen/Pelvis CTA 06/30/25 17:42 IMPRESSION: Negative CTA of the abdomen and pelvis. Large right-sided pleural fluid. Reading Location: [id number] Physical Exam Const alert, oriented x3 and no apparent distress Constitutional Narrative: frail, weak General Appearance: cooperative HEENT normocephalic, head/scalp atraumatic, moist oral mucous membranes and oropharynx normal Eyes EOMs intact bilaterally Neck supple and no JVD Lymph Lymphatic: no lymphedema noted Resp Resp Narrative: Markedly diminished breath sounds in the right lung lloyd. No wheezes or crackles. On 3 L of oxygen. Cardio regular rate, regular rhythm, S1 normal heart sound, S2 normal heart sound and no murmurs GI normal to inspection, nondistended, normoactive bowel sounds, soft to palpation and non-tender Extremity normal capillary refill, no clubbing, cyanosis or edema and no calf tenderness General Extremity: no tenderness to palpation of joints or extremities Skin General Skin Exam: no breakdown Neuro no focal motor deficits Motor Exam: general weakness Psych thought process normal and cooperative Appearance: appropriate Assessment & Plan Assessment/Plan (1) Malignant pleural effusion: (2) Ksunc-vd-owptmxn kidney injury: PLAN: Plan #Malignant right pleural effusion * Patient was admitted with a complaint of shortness of breath. Found to have a large right pleural effusion. * She was admitted in May 2025 for similar complaints. She had thoracentesis done and was discharged on 05/28/2025. Pulmonology was on consult during the admission. She had had a lung nodule which was biopsied in 2022 and did not show any evidence of cancer. Pulmonology was therefore concerned about possible malignancy. At the time of her discharge her fluid cytology was pending. * Cytology results came in on 06/10/2025. Patient was due to follow-up with pulmonology but states that it was canceled. 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 * Admitting doctor did speak to Dr. Calvo of the lung clinic oncology he requested a CT of the abdomen and pelvis which was negative for any evidence of malignancy. * on IV ceftriaxone and azithromycin * I discussed with Dr Chandler and he stated that [facility] will be able to get patient in to hte clinic very quickly after discharge. * #Hypokalemia: Resolved #Chronic depression and bipolar disorder: On citalopram and Seroquel #COPD: Not in exacerbation. Breathing treatments with bronchodilators. #Hyperlipidemia: On statin #CKD stage IIIb: Creatinine at baseline. #Paroxysmal A-fib: Not on any rate limiting medications. Currently rate and rhythm controlled. Eliquis on hold. DVT prophylaxis: On Eliquis which is currently on hold. Charges/Coding Visit Charges Inpatient E&M: 51655 Subs Hosp L2
[2025-07-01] MEDS: KCL 20MEQ in 0.9% NS 20 MEQ/1,000 ML IV.SOLN. 75 MEQ IV (11:43)
[2025-07-01] MEDS: Lidocaine 2% (20 ml mdv) 20 ML Vial INFILT (12:27)
--- NOTE | 2025-07-01 16:00 | CASEMGMT ---
SW Assessment: Face to Face with pt for initial transition planning/care coordination assessment. SW introduced self and role at [facility], pt voices understanding and consents to assessment. Pt answers all questions appropriately at this time. Care providers, pharmacy, and demographics verified/updated. Admitting Dx: Hypoxia, R pleural effusion PCP: Sanchez Specialists: Ashwin (pulmonology), Nisha (psychiatry), Cardiology- never saw Preferred Pharmacy: [facility] Insurance: [employer] Prescription Benefit: yes LNOK: friend, Marimar Living Arrangements: Pt lives at [facility]. Transportation: Pt uses [employer] through [employer], reports trying to use [employer], but reports that they are unreliable. DME: [employer] HHC/SNF:[facility] Pt states no concerns with going to [facility] at time of dc. SW encouraged the importance of follow-up with dr berry with new cancer diagnosis. SW educated on transportation services and discussed potential SNF d/c in order to provide reliable transportation and care. Pt did not agree or disagree. SW to follow up on plan of care following oncology. Pt was unaware what an oncologist was; SW provided education. Pt reports that she does not eat well at [facility] due to the spices in the food and the sweetness of the food. Pt reports she receives food stamps and has utilized pantries. Pt reports that she has medication for her nebulizer. Pt does not have trazadone or lorazepam and has not for a month due to not having reliable transportation to get to Dr Cameron. SW again reviewed [employer] (pt will not ride the van due to anxiety), [facility] (pt reports they are always an hour late), [employer] and [employer] (pt reports she has used up her rides). Pt reports that Ernestina at [facility] and Kate, case filler at [employer], are actively working on securing housing in [place] for pt. SW to follow up if pt d/c to community. Pt states no further concerns/needs. SW to follow. Advised pt to ask SW if any further questions/concerns/needs arise, voices understanding. Plan: undetermined at this time BILL Roland
[2025-07-02] VITALS (11 sets, daily range): BP systolic 103–134; BP diastolic 62–70; PULSE 72–102; RESP 16–22; TEMP 36.4–37; O2SAT 86–98
[2025-07-02] MEDS: KCL 20MEQ in 0.9% NS 20 MEQ/1,000 ML IV.SOLN. 75 MEQ IV (04:57)
[2025-07-02 05:10] LABS: Hematocrit 43.6 % (37-47); Hemoglobin 13.7 g/dL (12.0-15.0); Immature Granulocytes Count 0.070 X10^3/uL (0.0-0.0); Mean Corp Hgb Conc 31.4 g/dL (32-36); Mean Corpuscular Volume 98.0 fL (81-99); Mean Platelet Vol. 11.3 fl (6.2-12.0); NRBC Flagged by Analyzer 0 % (0-5); Platelet Count 235 K/mm3 (150-450); RBC Distribution Width CV 15.1 % (11.6-14.6); RBC Distribution Width SD 54.7 fl (35.1-43.9); Red Blood Count 4.45 M/mm3 (4.2-5.4); White Blood Count 15.5 K/mm3 (4.4-11.0)
[2025-07-02 05:43] LABS: Anion Gap 12 (5-15); BUN 14 mg/dL (4-19); BUN/Creat Ratio 11.5 RATIO (10-20); Calcium,Total 8.7 mg/dL (7.6-11.0); Carbon Dioxide 20.6 mmol/L (21.0-32.0); Chloride 110 mmol/L (98-108); Estimated Creatinine Clearance 54.84 ml/min (50-250); Glucose 115 mg/dL (70-99); Potassium 4.0 mmol/L (3.3-5.1)
[2025-07-02] MEDS: Albuterol 2.5 MG/3 ML VIAL.NEB. INHALATION (11:03)
--- NOTE | 2025-07-02 13:07 | CASEMGMT ---
Addendum entered by Elizabeth Qiu 07/02/25 13:56: Received notification that pt may not be able to go back to [facility] with oxygen. TC to Jessika at [facility], cancelled oxygen referral at this time. Original Note: Pt requires oxygen upon dc. OMARI CM into pt room, provided pt with a list of local in network DME companies, pt states she has no preference. Discussed if pt has to leave [facility] at certain times, [facility] may be the best option as she can have a portable concentrator fairly quickly. She is agreeable to this. She states she does not need to leave [facility] unless it is above 45 degrees. Pt is aware that [facility] will bring her a portable tank for transport home. TC to [facility] to confirm they are able to deliver portable tank prior to 3pm when pt has transport set up. Spoke with Jessika and she states this is possible. She states they are currently out of portable concentrators but pt will be on a list for one. She states they get them weekly. Updated pt on this. Pt is aware to notify [facility] once home and the concentrator will be delivered. Pt denies any further homegoing needs. Referral sent to [facility] via [facility] at this time.
--- NOTE | 2025-07-02 13:40 | CASEMGMT ---
Addendum entered by Crystal Gutierrez 07/02/25 16:44: Social Work SW also did leave a message earlier for the nurse w/psychiatry to see if they would fill pt's scripts in the interim between now and when her appt is. SW let pt know. REJI Kate Addendum entered by Crystal Gutierrez 07/02/25 14:41: Social Work SW updated the demographics w/pt's new phone number. SW called [facility] back and updated her number, called Dr. Peñaloza also and updated her number. SW had set up transportation w/the hospital van, cancelled this. Pt will likely need transport via w/c van. SW let physician know that the prison is not sure if they can take pt back on oxygen or not, and the people to make the decision are not there, so her d/c needs deferred to tomorrow, and we will also look into SNF as an option for pt. SW met w/pt. Pt was trying to pay her phone bill, however she was told she has to go into the store to fix it and get the phone up and running again. SW explained to pt that the prison is not giving a clear answer to SW on whether or not she can return on oxygen. SW explained we may need to consider SNF. Pt states she will not go to SNF. SW inquired why, pt states when she was in [facility] she had nightmares, it was loud, sounded like a chain gang walking down the [place]. SW explained we can consider other options, she does not have to go to [facility]. Pt states she will go to the streets before going to a SNF. SW gently explained to pt we will not be discharging her to the streets on oxygen. SW explained will be bringing in a SNF list for her, and will have SW Larwill follow up tomorrow. SW explained that if the prison cannot take her that there are not really any other options. Pt continues to state she will not go. SW will continue to follow, will bring her the SNF list later today and will follow up tomorrow w/[facility] and w/pt regarding discharge plan. REJI Kate Original Note: Social Work Pt is to be d/c back to the prison today. Pt needs an appt w/Dr. Gudino, Dr. Peñaloza, and may need home oxygen as well. SW set up appt w/Dr. Gudino, set up transportation to and from the appt w/[facility] [employer], appt is 07/15 at 2pm. SW attempted to set up an appt w/Dr. Peñaloza, they will need to call back. ANGI called the prison to see if pt can return on oxygen, as per Ruma, pt can return on O2. SW spoke w/pt, found out we have the wrong phone number for her, and her phone is not working. This will need corrected and pt needs to get her phone back on. SW put her on the phone w/[employer] to get the phone running. Roseanne then called back from the prison and said pt cannot return with a concentrator. ANGI further explained and then Roseanne thought she may be able to, but is not sure if they have the storage room for the tanks. ANGI asked to speak w/Ernestina, the prison manager interface. She is out sick. ANGI asked to speak w/whomever is in charge today, that is Tavo and he left for the day. ANGI explained we will postpone her discharge until tomorrow as it seems that nobody who is currently at the prison can actually make the decision about home O2, as ANGI has been given 3 different answers in the last hour. SW will follow up tomorrow w/the prison, SW updated Dr. Pelaez. SW will continue to follow, will need to also correct pt's phone number. REJI Kate
--- NOTE | 2025-07-02 14:21 | PN_ITS ---
Subjective Subjective Patient seen and examined with her nurse by her bedside. She had no active complaints. She had the thoracentesis yesterday with removal of 1.3L of fluid. Review of systems is otherwise negative. She is on 2L of oxygen by nasal canula. Objective Data Objective Data Vital Signs: Vital Signs Temp Pulse Resp BP Pulse Ox O2 Del Method O2 Flow Rate 98.3 F 90 18 134/65 H 98 Nasal Cannula 3 07/02/25 11:14 07/02/25 12:54 07/02/25 12:54 07/02/25 11:14 07/02/25 11:14 07/02/25 11:14 07/02/25 11:14 Oxygen Flow Rate (L/min) 3 Oxygen Delivery Method Nasal Cannula Weight: 230 lb Body Mass Index (BMI) 40.7 Intake & Output: Intake and Output for Last 24 Hours 06/30/25 07/01/25 07/02/25 23:59 23:59 23:59 Intake Total 1450 / 1450 1730 / 1730 2382.5 / 2382.5 Output Total 1700 / 1700 Balance 1450 / 1450 2382.5 / 2382.5 Lab / Micro Data 07/02/25 04:44 07/02/25 04:44 Labs: Laboratory Results - last 24 hr 07/02/25 04:44: WBC 15.5 H, RBC 4.45, Hgb 13.7, Hct 43.6, MCV 98.0, MCH 30.8, M CHC 31.4 L, RDW Std Deviation 54.7 H, RDW Coeff of Robert 15.1 H, Plt Count 235, MPV 11.3, Immature Gran % (Auto) 0.500, Neut % (Auto) 77.5 H, Lymph % (Auto) 14.7 L, [place] % (Auto) 6.9, Eos % (Auto) 0.2, Baso % (Auto) 0.2, Absolute Neuts (auto) 12.0 H, Absolute Lymphs (auto) 2.28, Nucleated RBC % 0, Sodium 142, Potassium 4.0, Chloride 110 H, Carbon Dioxide 20.6 L, Anion Gap 12, BUN 14, Creatinine 1.19, Estim Creat Clear Calc 54.84, Est GFR (MDRD) Non-Af 51 L, BUN/Creatinine Ratio 11.5, Glucose 115 H, Calcium 8.7 Micro: Microbiology 06/30/25 13:58 Mucosa - Nose SARS-CoV-2, Influenza & RSV (PCR) - Final Social Homelessness:: Sheltered Physical Exam Const alert, oriented x3 and no apparent distress Constitutional Narrative: frail, weak Orientation / Consciousness: awake and oriented to time HEENT normocephalic, head/scalp atraumatic, hearing grossly normal bilaterally, moist oral mucous membranes and oropharynx normal Eyes PERRL, EOMs intact bilaterally and conjunctivae normal Neck supple, no JVD and thyroid normal General: trachea midline Lymph Lymphatic: no lymphedema noted Resp normal respiratory effort, no retractions and no use of accessory muscles Resp Narrative: moderately diminished breath sounds bibasally, no wheezes or crackles. On 3L of oxygen by nasal canula. On 3 L of oxygen. Auscultation: Negative for rales, rhonchi or wheezes Cardio regular rate, regular rhythm, S1 normal heart sound, S2 normal heart sound, no murmurs, no rub and no gallops GI normal to inspection, nondistended, normoactive bowel sounds, soft to palpation, non-tender and non-distended Extremity normal capillary refill, no clubbing, cyanosis or edema and no calf tenderness General Extremity: no tenderness to palpation of joints or extremities Skin no rashes or lesions noted General Skin Exam: no breakdown Neuro oriented x3, CN's II-XII intact bilaterally, moves all extremities, no focal motor deficits and no sensory deficits noted Sensorium / Orientation: awake and alert Speech: speech normal Motor Exam: general weakness Psych thought process normal and cooperative Appearance: appropriate Assessment & Plan Assessment/Plan (1) Malignant pleural effusion: (2) Obgbr-tw-yfxeodc kidney injury: PLAN: Plan #Malignant right pleural effusion * Patient was admitted with a complaint of shortness of breath. Found to have a large right pleural effusion. * She was admitted in May 2025 for similar complaints. She had thoracentesis done and was discharged on 05/28/2025. Pulmonology was on consult during the admission. She had had a lung nodule which was biopsied in 2022 and did not show any evidence of cancer. Pulmonology was therefore concerned about possible malignancy. At the time of her discharge her fluid cytology was pending. * Cytology results came in on 06/10/2025. Patient was due to follow-up with pulmonology but states that it was canceled. 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 * Admitting doctor did speak to Dr. Calvo of the lung clinic oncology he requested a CT of the abdomen and pelvis which was negative for any evidence of malignancy. * on IV ceftriaxone and azithromycin * I discussed with Dr Chandler and he stated that [facility] will be able to get patient in to hte clinic very quickly after discharge. * had thoracentesis with removal of 1.3L of blood tinged fluid on the right side. * #Hypokalemia: Resolved #Chronic depression and bipolar disorder: On citalopram and Seroquel #COPD: Not in exacerbation. Breathing treatments with bronchodilators. #Hyperlipidemia: On statin #CKD stage IIIb: Creatinine at baseline. #Paroxysmal A-fib: Not on any rate limiting medications. Currently rate and rhythm controlled. Eliquis on hold. DVT prophylaxis: On Eliquis which is currently on hold. Will resume eliquis. Disposition; * patient was to be discharged today to go back to her homeless longterm. * However she requires oxygen and other homeless OTC they cannot take her with oxygen. * Case management working on placement at the SNF. Charges/Coding Visit Charges Inpatient E&M: 85185 Subs Hosp L2
[2025-07-02] MEDS: 0.9% Saline Lock 10 ML Syringe IV ×2 (18:46→20:04)
[2025-07-02] MEDS: Lidocaine 2% Viscous15 ML UDC 15 ML PO (22:38)
[2025-07-03] VITALS (9 sets, daily range): BP systolic 124–135; BP diastolic 55–77; PULSE 79–102; RESP 16–24; TEMP 36.6–36.9; O2SAT 89–94
[2025-07-03] MEDS: 0.9% Saline Lock 10 ML Syringe IV ×3 (02:44→21:47)
[2025-07-03 07:18] LABS: Hematocrit 44.5 % (37-47); Hemoglobin 14.7 g/dL (12.0-15.0); Immature Granulocytes Count 0.030 X10^3/uL (0.0-0.0); Mean Corp Hgb Conc 33.0 g/dL (32-36); Mean Corpuscular Volume 94.1 fL (81-99); Mean Platelet Vol. 11.0 fl (6.2-12.0); NRBC Flagged by Analyzer 0 % (0-5); Platelet Count 219 K/mm3 (150-450); RBC Distribution Width CV 14.6 % (11.6-14.6); RBC Distribution Width SD 51.1 fl (35.1-43.9); Red Blood Count 4.73 M/mm3 (4.2-5.4); White Blood Count 8.8 K/mm3 (4.4-11.0)
[2025-07-03 07:55] LABS: Anion Gap 10 (5-15); BUN 11 mg/dL (4-19); BUN/Creat Ratio 9.9 RATIO (10-20); Calcium,Total 8.9 mg/dL (7.6-11.0); Carbon Dioxide 25.5 mmol/L (21.0-32.0); Chloride 106 mmol/L (98-108); Estimated Creatinine Clearance 59.87 ml/min (50-250); Glucose 129 mg/dL (70-99); Potassium 4.0 mmol/L (3.3-5.1)
--- NOTE | 2025-07-03 13:01 | PN_ITS ---
Subjective Subjective Patient seen and examined today. She had no active complaints. She could not be DC'd back to the custodial because they do not take oxygen. Case management now attempting to place patient. Review of systems otherwise negative. She remains on 4 L of oxygen. Objective Data Objective Data Vital Signs: Vital Signs Temp Pulse Resp BP Pulse Ox O2 Del Method O2 Flow Rate 97.8 F 89 16 135/74 H 94 Nasal Cannula 4 07/03/25 06:43 07/03/25 06:43 07/03/25 06:43 07/03/25 06:43 07/03/25 06:43 07/03/25 09:11 07/03/25 09:11 Oxygen Flow Rate (L/min) 4 Oxygen Delivery Method Nasal Cannula Weight: 230 lb Body Mass Index (BMI) 40.7 Intake & Output: Intake and Output for Last 24 Hours 07/01/25 07/02/25 07/03/25 23:59 23:59 23:59 Intake Total 1730 / 1730 3582.5 / 3582.5 Output Total 1700 / 1700 Balance 3582.5 / 3582.5 Lab / Micro Data 07/03/25 06:55 07/03/25 06:55 Labs: Laboratory Results - last 24 hr 07/03/25 06:55: WBC 8.8, RBC 4.73, Hgb 14.7, Hct 44.5, MCV 94.1, MCH 31.1, MCHC 33.0 D, RDW Std Deviation 51.1 H, RDW Coeff of Robert 14.6, Plt Count 219, MPV 11.0, Immature Gran % (Auto) 0.300, Neut % (Auto) 81.6 H, Lymph % (Auto) 10.7 L, [place] % (Auto) 7.2, Eos % (Auto) 0.1, Baso % (Auto) 0.1, Absolute Neuts (auto) 7.2, Absolute Lymphs (auto) 0.94, Nucleated RBC % 0, Sodium 142, Potassium 4.0, Chloride 106, Carbon Dioxide 25.5, Anion Gap 10, BUN 11, Creatinine 1.09, Estim Creat Clear Calc 59.87, Est GFR (MDRD) Non-Af 57 L, BUN/Creatinine Ratio 9.9 L, Glucose 129 H, Calcium 8.9 Micro: Microbiology 06/30/25 13:36 Blood Culture (Wb) - Anticubital Right Blood Culture - Preliminary No growth in 48 hours. 06/30/25 13:55 Blood Culture (Wb) - Anticubital Right Blood Culture - Preliminary No growth in 48 hours. 06/30/25 13:58 Mucosa - Nose SARS-CoV-2, Influenza & RSV (PCR) - Final Social Homelessness:: Sheltered Physical Exam Const alert, oriented x3 and no apparent distress Constitutional Narrative: frail, weak General Appearance: cooperative Orientation / Consciousness: awake HEENT normocephalic, head/scalp atraumatic, hearing grossly normal bilaterally, moist oral mucous membranes and oropharynx normal Eyes EOMs intact bilaterally and conjunctivae normal Neck supple, no JVD, thyroid normal and no carotid bruits General: trachea midline Lymph Lymphatic: no lymphedema noted Resp Resp Narrative: moderately diminished breath sounds bibasally, no wheezes or crackles. On 3L of oxygen by nasal canula. On 4 L of oxygen. Auscultation: Negative for rales, rhonchi or wheezes Cardio regular rate, regular rhythm, S1 normal heart sound, S2 normal heart sound and no murmurs GI normal to inspection, nondistended, normoactive bowel sounds, soft to palpation, non-tender and non-distended Extremity normal capillary refill, no clubbing, cyanosis or edema and no calf tenderness General Extremity: no tenderness to palpation of joints or extremities Skin no rashes or lesions noted General Skin Exam: no breakdown Neuro oriented x3, CN's II-XII intact bilaterally, moves all extremities, no focal motor deficits and no sensory deficits noted Sensorium / Orientation: awake and alert Speech: speech normal Motor Exam: general weakness Psych thought process normal and cooperative Appearance: appropriate Assessment & Plan Assessment/Plan (1) Malignant pleural effusion: (2) Oiiyp-lm-eqpuzkt kidney injury: PLAN: Plan #Malignant right pleural effusion * Patient was admitted with a complaint of shortness of breath. Found to have a large right pleural effusion. * She was admitted in May 2025 for similar complaints. She had thoracentesis done and was discharged on 05/28/2025. Pulmonology was on consult during the admission. She had had a lung nodule which was biopsied in 2022 and did not show any evidence of cancer. Pulmonology was therefore concerned about possible malignancy. At the time of her discharge her fluid cytology was pending. * Cytology results came in on 06/10/2025. Patient was due to follow-up with pulmonology but states that it was canceled. 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 * Admitting doctor did speak to Dr. Calvo of the lung clinic oncology he requested a CT of the abdomen and pelvis which was negative for any evidence of malignancy. * on IV ceftriaxone and azithromycin * I discussed with Dr Chandler and he stated that [facility] will be able to get patient in to hte clinic very quickly after discharge. * had thoracentesis with removal of 1.3L of blood tinged fluid on the right side. * titrate oxygen to maintain sats >90% * #Hypokalemia: Resolved #Chronic depression and bipolar disorder: On citalopram and Seroquel #COPD: Not in exacerbation. Breathing treatments with bronchodilators. #Hyperlipidemia: On statin #CKD stage IIIb: Creatinine at baseline. #Paroxysmal A-fib: Not on any rate limiting medications. Currently rate and rhythm controlled. Eliquis on hold. DVT prophylaxis: On Eliquis which is currently on hold. Will resume eliquis. Disposition; * patient was to be discharged today to go back to her homeless custodial. * However she requires oxygen and other homeless OTC they cannot take her with oxygen. * Case management working on placement at the SNF. Charges/Coding Visit Charges Inpatient E&M: 83852 Subs Hosp L2
--- NOTE | 2025-07-03 13:34 | CASEMGMT ---
Addendum entered by Bren Hughes 07/03/25 13:51: ANGI called Ernestina at [facility] and left a voicemail to collaborate on discharge plans and provide updates. BILL Roland Original Note: Social Work- ANGI received a call from Dr Kay office that they need documentation pertaining to cancer diagnosis faxed prior to being able to schedule. ANGI faxed over requested documentation. Darin, from office, called scheduled for 07/10 at 1:20PM. ANGI met with pt to notify of appt and to follow up on bedside nurse report that pt would like [facility] referral. Pt confirms that she would like [facility] referral for d/c. ANGI updated DCA and hospitalist. ANGI remains available to follow. Appointments: Eliza- oncology- 07/10 at 1:20 Nisha- psychology- 07/15 at 2:00 BILL Roland
[2025-07-04] VITALS (9 sets, daily range): BP systolic 127–146; BP diastolic 66–89; PULSE 87–97; RESP 15–20; TEMP 36.3–36.8; O2SAT 90–94
[2025-07-04] MEDS: 0.9% Saline Lock 10 ML Syringe IV (00:59)
[2025-07-04 05:55] LABS: Hematocrit 46.9 % (37-47); Hemoglobin 15.3 g/dL (12.0-15.0); Immature Granulocytes Count 0.030 X10^3/uL (0.0-0.0); Mean Corp Hgb Conc 32.6 g/dL (32-36); Mean Corpuscular Volume 94.2 fL (81-99); Mean Platelet Vol. 11.0 fl (6.2-12.0); NRBC Flagged by Analyzer 0 % (0-5); Platelet Count 224 K/mm3 (150-450); RBC Distribution Width CV 14.3 % (11.6-14.6); RBC Distribution Width SD 49.4 fl (35.1-43.9); Red Blood Count 4.98 M/mm3 (4.2-5.4); White Blood Count 11.9 K/mm3 (4.4-11.0)
[2025-07-04 06:46] LABS: Anion Gap 13 (5-15); BUN 11 mg/dL (4-19); BUN/Creat Ratio 10.4 RATIO (10-20); Calcium,Total 9.3 mg/dL (7.6-11.0); Carbon Dioxide 25.4 mmol/L (21.0-32.0); Chloride 102 mmol/L (98-108); Estimated Creatinine Clearance 61.57 ml/min (50-250); Glucose 116 mg/dL (70-99); Potassium 4.1 mmol/L (3.3-5.1)
--- NOTE | 2025-07-04 08:17 | EKG12_ITS ---
Test Reason : CP Blood Pressure : */* mmHG Vent. Rate : 87 BPM Atrial Rate : * BPM P-R Int : * ms QRS Dur : 88 ms QT Int : 374 ms P-R-T Axes : * -4 35 degrees QTcB Int : 450 ms Normal sinus rhythm with PAC Nonspecific ST abnormality Abnormal ECG When compared with ECG of 30-Jun-2025 13:26, Junctional rhythm has replaced Sinus rhythm QRS axis Shifted right Nonspecific T wave abnormality no longer evident in Anterior leads Confirmed by Kam Turk ([id number]), publication editor JIGNA TERRAZAS ([id number]) on 07/05/2025 9:45:12 AM Referred By: LAURA Confirmed By: Kam Turk
[2025-07-04 09:26] LABS: Troponin T High Sensitivity 22 ng/L (<=14)
[2025-07-04 11:16] LABS: Troponin T High Sens 2 HR 22 ng/L (<=14)
[2025-07-04 14:16] LABS: Troponin T High Sens 4 HR 20 ng/L (<=14)
--- NOTE | 2025-07-04 16:00 | PN_ITS ---
Subjective Subjective Patient seen and examined with her nurse by her bedside. She was complaining of some retrosternal chest pain. However EKG showed no acute ST changes and troponins were negative. She does have a history of GERD and reflux and this was thought to be causing her symptoms. Review of systems otherwise negative. She is awaiting placement. Objective Data Objective Data Vital Signs: Vital Signs Temp Pulse Resp BP Pulse Ox O2 Del Method O2 Flow Rate 98.0 F 89 16 138/75 H 93 Nasal Cannula 2 07/04/25 14:20 07/04/25 14:20 07/04/25 14:20 07/04/25 14:20 07/04/25 15:09 07/04/25 14:35 07/04/25 15:09 Oxygen Flow Rate (L/min) 2 Oxygen Delivery Method Nasal Cannula Weight: 230 lb Body Mass Index (BMI) 40.7 Intake & Output: Intake and Output for Last 24 Hours 07/02/25 07/03/25 07/04/25 23:59 23:59 23:59 Intake Total 3582.5 / 3582.5 400 / 400 Output Total 1700 / 1700 Balance 3582.5 / 3582.5 -1300 / -1300 Lab / Micro Data 07/04/25 05:26 07/04/25 05:26 Labs: Laboratory Results - last 24 hr 07/04/25 05:26: WBC 11.9 H, RBC 4.98, Hgb 15.3 H, Hct 46.9, MCV 94.2, MCH 30.7, MCHC 32.6, RDW Std Deviation 49.4 H, RDW Coeff of Robert 14.3, Plt Count 224, MPV 11.0, Immature Gran % (Auto) 0.300, Neut % (Auto) 81.1 H, Lymph % (Auto) 10.1 L, [place] % (Auto) 8.2, Eos % (Auto) 0.1, Baso % (Auto) 0.2, Absolute Neuts (auto) 9.7 H, Absolute Lymphs (auto) 1.20, Nucleated RBC % 0, Sodium 140, Potassium 4.1, Chloride 102, Carbon Dioxide 25.4, Anion Gap 13, BUN 11, Creatinine 1.06, Estim Creat Clear Calc 61.57, Est GFR (MDRD) Non-Af 59 L, BUN/Creatinine Ratio 10.4, Glucose 116 H, Calcium 9.3 07/04/25 08:41: Troponin T High Sens 22 H D 07/04/25 10:33: Troponin T Hi Sens 2 Hr 22 H 07/04/25 13:05: Troponin T Hi Sens 4Hr 20 H Micro: Microbiology 06/30/25 13:36 Blood Culture (Wb) - Anticubital Right Blood Culture - Preliminary No growth in 48 hours. 06/30/25 13:55 Blood Culture (Wb) - Anticubital Right Blood Culture - Preliminary No growth in 48 hours. 06/30/25 13:58 Mucosa - Nose SARS-CoV-2, Influenza & RSV (PCR) - Final Social Homelessness:: Sheltered Physical Exam Const alert, oriented x3 and no apparent distress Constitutional Narrative: frail, weak General Appearance: cooperative, well kempt and well developed Orientation / Consciousness: awake HEENT normocephalic, head/scalp atraumatic, hearing grossly normal bilaterally, moist oral mucous membranes and oropharynx normal Eyes PERRL, EOMs intact bilaterally and conjunctivae normal Neck supple, no JVD, thyroid normal and no carotid bruits General: trachea midline Lymph Lymphatic: no lymphedema noted Resp normal respiratory effort, no retractions and no use of accessory muscles Resp Narrative: moderately diminished breath sounds bibasally, no wheezes or crackles. On 2 L of oxygen. Auscultation: Negative for rales, rhonchi or wheezes Cardio regular rate, regular rhythm, S1 normal heart sound, S2 normal heart sound and no murmurs GI normal to inspection, nondistended, normoactive bowel sounds, soft to palpation, non-tender and non-distended Extremity normal capillary refill, no clubbing, cyanosis or edema and no calf tenderness General Extremity: no tenderness to palpation of joints or extremities Skin no rashes or lesions noted General Skin Exam: no breakdown Neuro oriented x3, CN's II-XII intact bilaterally, moves all extremities, no focal motor deficits and no sensory deficits noted Sensorium / Orientation: awake and alert Speech: speech normal Motor Exam: general weakness Psych thought process normal and cooperative Appearance: appropriate Assessment & Plan Assessment/Plan (1) Malignant pleural effusion: (2) Oobws-gk-difizzh kidney injury: PLAN: Plan #Malignant right pleural effusion * Patient was admitted with a complaint of shortness of breath. Found to have a large right pleural effusion. * She was admitted in May 2025 for similar complaints. She had thoracentesis done and was discharged on 05/28/2025. Pulmonology was on consult during the admission. She had had a lung nodule which was biopsied in 2022 and did not show any evidence of cancer. Pulmonology was therefore concerned about possible malignancy. At the time of her discharge her fluid cytology was pending. * Cytology results came in on 06/10/2025. Patient was due to follow-up with pulmonology but states that it was canceled. 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 * Admitting doctor did speak to Dr. Calvo of the [facility] clinic oncology he requested a CT of the abdomen and pelvis which was negative for any evidence of malignancy. * on IV ceftriaxone and azithromycin * I discussed with Dr Chandler and he stated that [facility] will be able to get patient in to hte clinic very quickly after discharge. * had thoracentesis with removal of 1.3L of blood tinged fluid on the right side. * titrate oxygen to maintain sats >90% * #Hypokalemia: Resolved #Chronic depression and bipolar disorder: On citalopram and Seroquel #COPD: Not in exacerbation. Breathing treatments with bronchodilators. #Hyperlipidemia: On statin #CKD stage IIIb: Creatinine at baseline. #Paroxysmal A-fib: Not on any rate limiting medications. Currently rate and rhythm controlled. Eliquis on hold. DVT prophylaxis: On Eliquis which is currently on hold. Will resume eliquis. Disposition; * patient was to be discharged today to go back to her homeless [facility]. * However she requires oxygen and other homeless OTC they cannot take her with oxygen. * Case management working on placement at the SNF. * Still awaiting placement. Charges/Coding Visit Charges Inpatient E&M: 86251 Subs Hosp L2
[2025-07-05] VITALS (8 sets, daily range): BP systolic 117–129; BP diastolic 71–74; PULSE 84–101; RESP 15–20; TEMP 36.1–36.7; O2SAT 92–94
[2025-07-05 06:12] LABS: Hematocrit 47.7 % (37-47); Hemoglobin 15.5 g/dL (12.0-15.0); Immature Granulocytes Count 0.040 X10^3/uL (0.0-0.0); Mean Corp Hgb Conc 32.5 g/dL (32-36); Mean Corpuscular Volume 94.3 fL (81-99); Mean Platelet Vol. 11.1 fl (6.2-12.0); NRBC Flagged by Analyzer 0 % (0-5); Platelet Count 226 K/mm3 (150-450); RBC Distribution Width CV 14.1 % (11.6-14.6); RBC Distribution Width SD 49.2 fl (35.1-43.9); Red Blood Count 5.06 M/mm3 (4.2-5.4); White Blood Count 12.5 K/mm3 (4.4-11.0)
[2025-07-05 07:01] LABS: Anion Gap 13 (5-15); BUN 13 mg/dL (4-19); BUN/Creat Ratio 12.0 RATIO (10-20); Calcium,Total 9.2 mg/dL (7.6-11.0); Carbon Dioxide 25.5 mmol/L (21.0-32.0); Chloride 98 mmol/L (98-108); Estimated Creatinine Clearance 62.75 ml/min (50-250); Glucose 91 mg/dL (70-99); Potassium 3.6 mmol/L (3.3-5.1)
--- NOTE | 2025-07-05 08:24 | PCM.CONS.P ---
COUNT INCLUDES THE [facility] Medical History Pleural effusion on right Elevated troponin Elevated d-dimer Erythrocytosis Pleural effusion, right Osteoporosis Kidney disease CKD stage 3b, GFR 30-44 ml/min Overactive bladder Decubitus ulcer of buttock, stage 1 Encounter for smoking cessation counseling History of COPD Urinary tract infection History of echocardiogram Wears glasses Anxiety Depression Post-menopausal History of renal disease High cholesterol Back pain TIA (transient ischemic attack) Gastric reflux Smoker Shortness of breath on exertion History of pain when walking History of edema Cardiology follow-up encounter History of heart attack Chest pain History of left heart catheterization (LHC) (~12/30/20) CKD (chronic kidney disease) stage 3, GFR 30-59 ml/min Lung nodule COPD (chronic obstructive pulmonary disease) Paroxysmal atrial fibrillation Elevated liver enzymes Acute respiratory failure with hypoxia Stroke IBS (irritable bowel syndrome) Hyperlipidemia Heart disease Migraines Frequent headaches Gastrointestinal problem Diabetes History of back problems Asthma Arthritis Home Medications ?Medication ?Instructions ?Recorded ?Last Taken ?Type apixaban 5 mg tablet (Eliquis) 5 mg PO Q12 #60 tabs 11/07/24 Unknown Rx quetiapine 100 mg tablet 200 mg (2 x 100 mg) PO BID #120 11/07/24 Unknown Rx tabs lorazepam 0.5 mg tablet 0.5 mg PO Q12H PRN anxiety 11/14/24 Unknown History lovastatin 40 mg tablet 20 mg PO QHS 11/14/24 Unknown History omeprazole 40 mg capsule,delayed 40 mg PO DAILY 11/14/24 Unknown History release aspirin 81 mg capsule 81 mg PO DAILY 01/08/25 Unknown History mupirocin 2 % topical ointment 1 applic topical TID 01/29/25 Unknown History quetiapine 200 mg tablet,extended 200 mg PO DAILY 01/29/25 Unknown History release 24 hr vibegron 75 mg tablet (Gemtesa) 75 mg PO DAILY 01/29/25 Unknown History citalopram 10 mg tablet 10 mg PO DAILY 01/31/25 Unknown History ipratropium 0.5 mg-albuterol 3 mg 3 ml continuous nebulization ONCE 01/31/25 Unknown Clinic (2.5 mg base)/3 mL nebulization shortness of breath #3 mL soln ipratropium 0.5 mg-albuterol 3 mg 3 ml inhalation Q20M PRN shortness 01/31/25 Unknown Rx (2.5 mg base)/3 mL nebulization of breath 1 month #90 mL soln nitroglycerin 0.4 mg sublingual 0.4 mg sublingual DAILY 01/31/25 Unknown History tablet Gemtesa 75 mg tablet (vibegron) 75 mg PO QDAY #90 tabs 02/27/25 Unknown Rx methenamine hippurate 1 gram tablet 1 g PO BID #180 tabs 02/27/25 Unknown Rx albuterol sulfate 90 mcg/actuation 2 puff inhalation Q6H PRN 04/24/25 Unknown Rx aerosol inhaler shortness of breath or wheezing #8.5 grams albuterol sulfate 90 mcg/actuation 1 - 2 puff inhalation Q4H PRN PRN 04/30/25 Unknown Rx aerosol inhaler (Ventolin HFA) Wheezing ##1 trazodone 100 mg tablet 100 mg PO QHS 05/24/25 Unknown History furosemide 20 mg tablet 20 mg PO DAILY #30 tabs 05/28/25 Unknown Rx ipratropium 0.5 mg-albuterol 3 mg 3 ml inhalation Q4H PRN shortness 05/28/25 Unknown Rx (2.5 mg base)/3 mL nebulization of breath or wheezing #180 mL soln levofloxacin 750 mg tablet 750 mg PO DAILY #4 tabs 05/28/25 Unknown Rx prednisone 20 mg tablet 40 mg (2 x 20 mg) PO DAILY #10 tabs 05/28/25 Unknown Rx Allergy/AdvReac Type Severity Reaction Status Date / Time Penicillins Allergy Intermediate Hives Verified 06/30/25 13:07 carbamazepine (From Tegretol) AdvReac Intermediate Nausea Verified 06/30/25 13:07 benztropine AdvReac Unknown Verified 06/30/25 13:07 diazepam (From Valium) AdvReac Other Verified 06/30/25 13:07 Sulfa (Sulfonamide AdvReac Nausea Verified 06/30/25 13:07 Antibiotics) thioridazine AdvReac Nausea Verified 06/30/25 13:07 thioridazine HCl (From AdvReac Other Verified 06/30/25 13:07 Mellaril) Family History Grandmother Cancer stomach Father Cancer lung Sister Breast cancer Surgical History Hx of surgical procedure History of carpal tunnel surgery History of elbow surgery H/O shoulder surgery H/O hand surgery H/O dilation and curettage Hx of cholecystectomy History of tonsillectomy Social History housing: homeless Smoking Status: Heavy Smoker (>10/day) alcohol intake: never substance use type: does not use caffeine: Yes what type of physical activity do you participate in: walking seatbelt use: always do you feel safe at home: Yes Homelessness:: Unsheltered ROS Constitutional Constitutional: Reports night sweats Eyes Eyes: Reports systems reviewed and no addt'l complaints, except as documented ENT HEENT: Reports other Details: missing teeth Cardiovascular Cardiovascular: Reports dyspnea Respiratory/Chest Respiratory/Chest: Reports dyspnea, dyspnea on exertion, shortness of breath at rest, shortness of breath with exertion and wheezing Gastrointestinal Gastrointestinal: Reports systems reviewed and no addt'l complaints, except as documented Genitourinary Genitourinary: Reports systems reviewed and no addt'l complaints, except as documented Musculoskeletal Musculoskeletal: Reports systems reviewed and no addt'l complaints, except as documented Integumentary Integumentary: Reports systems reviewed and no addt'l complaints, except as documented Neurologic Neurologic: Reports systems reviewed and no addt'l complaints, except as documented Psychiatric Psychiatric: Reports systems reviewed and no addt'l complaints, except as documented Endocrine Endocrinology: Reports systems reviewed and no addt'l complaints, except as documented Hematologic/Lymphatic Hematologic/Lymphatic: Reports anemia and easy bruising Allergic/Immunologic Allergic/Immunologic: Reports as per HPI Physical Exam Const alert and oriented x3 General Appearance: cooperative HEENT normocephalic Eyes PERRL Neck General: trachea midline Lymph Lymphatic Narrative: enlarged medial steinal nodes per radiological study Resp Auscultation: wheezes and diminished lung sounds Cardio Rate: tachycardic GI soft to palpation and non-tender Extremity normal capillary refill Skin no rashes or lesions noted Neuro no sensory deficits noted Speech: speech normal and speech abnormal Details: Positive for other (speech is slightly garbled related to dentation ) Gait (Neuro): normal gait Psych Appearance: appropriate Charges/Coding Palliative Care Palliative Care: 53797 New Pt Consult 80+ min HPI Current admission Current Code Status: DNRCC Associated Diagnosis: adenocarcinoma Consult Data Date of Consult: 07/05/25 Location of consult: [place] Reason for referral: goals and code status Referral source: Dr. Pelaez Palliative care diagnosis (Summary list): adenocarcinoma Palliative care services/treatment (Accepted, as consult): accepted Case discussed with referring provider: Dr. Pelaez HPI Narrative HPI Narrative: PAIN ASSESSMENT Location: [ chest ] Quality: [ sharp] Severity/Quantity: [8/10 ] Timing/Frequency: [ constant ] Context: [medial ] Factors that make it better/worse: [ meds help ] Associated signs & symptoms: [ adenocarcinoma ] Prior to meeting with the pt at bedside, I reviewed labs, radiological studies and pathology reports as well as documentation. I then met with Pernell at bedside. I introducedmyself and palliative care, in which she voluntarily accepted our services. I explained to Pernell that I was consulted to discuss goals of care and code status. Pernell is aao x 3. She states that she does not want to persue treatment for her cancer. She stated that she watched her go through treatment for his cancer and he suffered. She does not want that for herself. She had good understanding about what that would mean to her and I explained comfort care and hospice. She does want to go to [facility] with hospice care. I also discussed her current code status. She is agreeable to DNRCC in the setting of transitioning to hospice. I updated ANGI/JONNATHAN and Dr. Jarrett. Dr. Jarrett did request that I place comfort care orders. Orders have been placed and code status changed. Warm handoff placed to [facility] hosp[facility], per pt request of agencies. All questions were answered. She has been having 8/10 chest discomfort. Medication orders have been placed. I did clarify with the pt her allergy to Valium. She stated that she get nauseate and vomits and not a true allergy. Hospitalist: PERNELL FISHER, is a 65 F who presents to the emergency room at [facility] with complaints of shortness of breath and concern for pneumonia. She had been hospitalized approximately a month ago and placed on antibiotics at that time and corticosteroids. Review of the patient's medical record shows that she underwent a thoracentesis in May, the fluid resulted in showing adenocarcinoma-I went over this with the patient and she did not know that she had cancer-no one informed her. She states she had an appointment with pulmonary medicine for follow-up but it was canceled by the office, she also said she saw her PCP but he did not mention anything about lung cancer and placed her on antibiotic for possible pneumonia. Workup in the emergency room included a CT of the chest which showed a large right pleural effusion, compressive atelectasis of the right lower lobe was noted, there was some indication there might be a right upper lobe infiltrate. Patient's white blood cell count was 14, hemoglobin was 16.4, chemistry profile was abnormal for a potassium of 2.7, creatinine was 1.36, and lactic acid was 2.9. Patient's first 2 troponins were 27 and 27. Patient's COVID, influenza, and RSV panel was negative. Patient will be admitted to [place] [address] for hypoxia with malignant right pleural effusion, due to her Eliquis usage she may not undergo thoracentesis until Tuesday of this week, patient is not sure why she takes Eliquis. It appears from her medical record that she has paroxysmal atrial fibrillation. She Palliative Assessment Advanced Directive - Current Admission Advance Directive: Advance Directive ON ADMISSION - REFERENCE Do you have a Healthcare No 06/30/25 16:57 Living Will? Do you have a Healthcare Power No 06/30/25 16:57 of [employer]? 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 Her son is in fci currently. She has a niece that she does talk to, Uma. 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 Dyspnea symptoms: Severe Constipation symptoms: None Nausea symptoms: Mild Vomiting symptoms: None Depression symptoms: None Anorexia symptoms: None Diarrhea symptoms: None Fatigue symptoms: Moderate Weakness symptoms: Mild Confusion symptoms: None Objective Data Objective Data Vital Signs: Vital Signs Temp Pulse Resp BP Pulse Ox O2 Del Method O2 Flow Rate 97.0 F L 96 16 129/72 H 94 Nasal Cannula 2 07/05/25 08:03 07/05/25 08:03 07/05/25 08:03 07/05/25 08:03 07/05/25 08:03 07/05/25 08:03 07/05/25 08:03 Oxygen Flow Rate (L/min) 2 Oxygen Delivery Method Nasal Cannula Weight: 230 lb Body Mass Index (BMI) 40.7 Intake & Output: Intake and Output for Last 24 Hours 07/03/25 07/04/25 07/05/25 23:59 23:59 23:59 Intake Total 600 / 600 Output Total 1700 / 1700 Balance -1100 / -1100 Lab / Micro Data Attestation: I reviewed the patient's lab results. Lab results narrative: encouraged oral intake 07/05/25 05:28 07/05/25 05:28 Labs: Laboratory Results - last 24 hr 07/04/25 08:41: Troponin T High Sens 22 H D 07/04/25 10:33: Troponin T Hi Sens 2 Hr 22 H 07/04/25 13:05: Troponin T Hi Sens 4Hr 20 H 07/05/25 05:28: WBC 12.5 H, RBC 5.06, Hgb 15.5 H, Hct 47.7 H, MCV 94.3, MCH 30.6, MCHC 32.5, RDW Std Deviation 49.2 H, RDW Coeff of Robert 14.1, Plt Count 226, MPV 11.1, Immature Gran % (Auto) 0.300, Neut % (Auto) 78.1 H, Lymph % (Auto) 11.6 L, [place] % (Auto) 9.6, Eos % (Auto) 0.2, Baso % (Auto) 0.2, Absolute Neuts (auto) 9.7 H, Absolute Lymphs (auto) 1.45, Nucleated RBC % 0, Sodium 137, Potassium 3.6, Chloride 98, Carbon Dioxide 25.5, Anion Gap 13, BUN 13, Creatinine 1.04, Estim Creat Clear Calc 62.75, Est GFR (MDRD) Non-Af 60, BUN/Creatinine Ratio 12.0, Glucose 91, Calcium 9.2 Micro: Microbiology 06/30/25 13:36 Blood Culture (Wb) - Anticubital Right Blood Culture - Preliminary No growth in 48 hours. 06/30/25 13:55 Blood Culture (Wb) - Anticubital Right Blood Culture - Preliminary No growth in 48 hours. 06/30/25 13:58 Mucosa - Nose SARS-CoV-2, Influenza & RSV (PCR) - Final Social Homelessness:: Unsheltered Impressions & Recommendations Patient & Family Issues discussed with the patient and family: no family Patient goal: comfort focused care Family goal: none Ethical & Legal Ethical and legal: no POA legally Impressions Impressions: pt does not want aggressive treatment Recommentation Palliative recommendations: hospice Encouter Achieved as a result of this Palliative Care Encounter: [[id number], [id number] ] minutes were spent in total for this visit which consisted, primarily of counseling and education dealing with the complex and emotionally intense issues of symptom management and palliative care in the setting of serious and potentially life-threatening illness. Review of documentation, labs and radiological studies. ?Patient/family had the opportunity to ask questions Plan (1) Malignant pleural effusion: (2) Acute dehydration: (3) 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 mellitus: (4) Goals of care, counseling/discussion: (5) Palliative care encounter: PLAN: Plan *meeting with pt about goals of care *pt has elected hospice at [facility] *warm handoff to [facility] *updated SW/CM/RN and physician *comfort care orders placed *confirmed DNRCC with pt
--- NOTE | 2025-07-05 08:28 | CASEMGMT ---
Discharge Planning Referral sent via [facility] to [facility] with request to submit for precert if able to accept. Hannah Whiting DC Planning Asst.
--- NOTE | 2025-07-05 10:46 | CASEMGMT ---
Addendum entered by Bren Hughes 07/05/25 13:09: ANGI spoke with Ginger from hospice. Ginger reports that they called pt friend then pt prior to calling SW. Ginger reports that they scheduled a meeting tomorrow at 13:30. SW updated SWCC and hospitalist. SW remains available to follow. BILL Roland Addendum entered by Bren Hughes 07/05/25 12:47: SW called hospice to follow up. Hospice reports referral is out for scheduling. SW verified to call hospital to schedule. BILL Roland Original Note: Social Work- ANGI collaborated with palliative NEIGHBORHOOD PLANNER and hospitalist. Pt requesting [facility] hosp[facility]. ANGI completed referral. Pt requesting hospice call hospital to schedule assessment. TOMÁS updated on hospice referral. BILL Roland
--- NOTE | 2025-07-05 14:56 | PN_ITS ---
Subjective Subjective Patient seen and examined with her nurse by her bedside. She has no active complaints. Review of systems otherwise negative. She has not opted to go to the correction with hospice. She is awaiting hospice evaluation. Objective Data Objective Data Vital Signs: Vital Signs Temp Pulse Resp BP Pulse Ox O2 Del Method O2 Flow Rate 97.0 F L 96 16 129/72 H 94 Nasal Cannula 2 07/05/25 08:03 07/05/25 08:03 07/05/25 08:03 07/05/25 08:03 07/05/25 08:35 07/05/25 08:35 07/05/25 08:35 Oxygen Flow Rate (L/min) 2 Oxygen Delivery Method Nasal Cannula Weight: 230 lb Body Mass Index (BMI) 40.7 Intake & Output: Intake and Output for Last 24 Hours 07/03/25 07/04/25 07/05/25 23:59 23:59 23:59 Intake Total 600 / 600 200 / 200 Output Total 1700 / 1700 Balance -1100 / -1100 200 / 200 Lab / Micro Data 07/05/25 05:28 07/05/25 05:28 Labs: Laboratory Results - last 24 hr 07/05/25 05:28: WBC 12.5 H, RBC 5.06, Hgb 15.5 H, Hct 47.7 H, MCV 94.3, MCH 30.6, MCHC 32.5, RDW Std Deviation 49.2 H, RDW Coeff of Robert 14.1, Plt Count 226, MPV 11.1, Immature Gran % (Auto) 0.300, Neut % (Auto) 78.1 H, Lymph % (Auto) 11.6 L, [place] % (Auto) 9.6, Eos % (Auto) 0.2, Baso % (Auto) 0.2, Absolute Neuts (auto) 9.7 H, Absolute Lymphs (auto) 1.45, Nucleated RBC % 0, Sodium 137, Potassium 3.6, Chloride 98, Carbon Dioxide 25.5, Anion Gap 13, BUN 13, Creatinine 1.04, Estim Creat Clear Calc 62.75, Est GFR (MDRD) Non-Af 60, BUN/Creatinine Ratio 12.0, Glucose 91, Calcium 9.2 Micro: Microbiology 06/30/25 13:36 Blood Culture (Wb) - Anticubital Right Blood Culture - Final No growth in 5 days. 12/14/25 13:55 Blood Culture (Wb) - Anticubital Right Blood Culture - Final No growth in 5 days. 06/30/25 13:58 Mucosa - Nose SARS-CoV-2, Influenza & RSV (PCR) - Final Social Homelessness:: Unsheltered Physical Exam Const alert, oriented x3 and no apparent distress Constitutional Narrative: frail, weak General Appearance: cooperative, well kempt and well developed Orientation / Consciousness: awake, oriented to person, oriented to place and oriented to time HEENT normocephalic, head/scalp atraumatic, hearing grossly normal bilaterally, moist oral mucous membranes and oropharynx normal Eyes PERRL, EOMs intact bilaterally and conjunctivae normal Neck supple, no JVD, thyroid normal and no carotid bruits General: trachea midline Lymph Lymphatic: no lymphedema noted Resp Resp Narrative: moderately diminished breath sounds bibasally, no wheezes or crackles. On 2 L of oxygen. Auscultation: Negative for rales, rhonchi or wheezes Cardio regular rate, regular rhythm, S1 normal heart sound, S2 normal heart sound and no murmurs GI normal to inspection, nondistended, normoactive bowel sounds, soft to palpation, non-tender and non-distended Extremity normal capillary refill, no clubbing, cyanosis or edema and no calf tenderness General Extremity: no tenderness to palpation of joints or extremities Skin no rashes or lesions noted General Skin Exam: no breakdown Neuro oriented x3, moves all extremities and no focal motor deficits Sensorium / Orientation: awake and alert Speech: speech normal Motor Exam: general weakness Psych thought process normal and cooperative Appearance: appropriate Assessment & Plan Assessment/Plan (1) Malignant pleural effusion: (2) Icham-xe-mhyonww kidney injury: PLAN: Plan #Malignant right pleural effusion * Patient was admitted with a complaint of shortness of breath. Found to have a large right pleural effusion. * She was admitted in May 2025 for similar complaints. She had thoracentesis done and was discharged on 05/28/2025. Pulmonology was on consult during the admission. She had had a lung nodule which was biopsied in 2022 and did not show any evidence of cancer. Pulmonology was therefore concerned about possible malignancy. At the time of her discharge her fluid cytology was pending. * Cytology results came in on 06/10/2025. Patient was due to follow-up with pulmonology but states that it was canceled. 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 * Admitting doctor did speak to Dr. Calvo of the lung clinic oncology he requested a CT of the abdomen and pelvis which was negative for any evidence of malignancy. * on IV ceftriaxone and azithromycin * I discussed with Dr Chandler and he stated that [facility] will be able to get patient in to hte clinic very quickly after discharge. * had thoracentesis with removal of 1.3L of blood tinged fluid on the right side. * titrate oxygen to maintain sats >90% * #Hypokalemia: Resolved #Chronic depression and bipolar disorder: On citalopram and Seroquel #COPD: Not in exacerbation. Breathing treatments with bronchodilators. #Hyperlipidemia: On statin #CKD stage IIIb: Creatinine at baseline. #Paroxysmal A-fib: Not on any rate limiting medications. Currently rate and rhythm controlled. Eliquis on hold. DVT prophylaxis: On Eliquis which is currently on hold. Will resume eliquis. Disposition; * patient was to be discharged today to go back to her homeless alf. * However she requires oxygen and other homeless OTC they cannot take her with oxygen. * Case management working on placement at the SNF. * Still awaiting placement. She has now opted to go to SNF with hospice. Awaiting hospice evaluation. Charges/Coding Visit Charges Inpatient E&M: 63468 Subs Hosp L2
--- NOTE | 2025-07-05 15:29 | CASEMGMT ---
Social Work- SW coordinated with SWCC. SWCC accepted referral. SWCC will admit when pt has signed with hospice. [facility] updated on 13:30 meeting tomorrow. SW to follow. BILL Roland
[2025-07-05] MEDS: MorphINE SOLN 10 MG/0.5 ML PO.SYRINGE 5 MG SL/PO (20:11)
[2025-07-06 06:38] LABS: Hematocrit 47.2 % (37-47); Hemoglobin 15.3 g/dL (12.0-15.0); Immature Granulocytes Count 0.020 X10^3/uL (0.0-0.0); Mean Corp Hgb Conc 32.4 g/dL (32-36); Mean Corpuscular Volume 94.0 fL (81-99); Mean Platelet Vol. 11.0 fl (6.2-12.0); NRBC Flagged by Analyzer 0 % (0-5); Platelet Count 208 K/mm3 (150-450); RBC Distribution Width CV 13.8 % (11.6-14.6); RBC Distribution Width SD 48.3 fl (35.1-43.9); Red Blood Count 5.02 M/mm3 (4.2-5.4); White Blood Count 10.1 K/mm3 (4.4-11.0)
[2025-07-06 06:59] LABS: Anion Gap 11 (5-15); BUN 15 mg/dL (4-19); BUN/Creat Ratio 14.7 RATIO (10-20); Calcium,Total 9.0 mg/dL (7.6-11.0); Carbon Dioxide 28.9 mmol/L (21.0-32.0); Chloride 99 mmol/L (98-108); Estimated Creatinine Clearance 63.36 ml/min (50-250); Glucose 93 mg/dL (70-99); Potassium 3.4 mmol/L (3.3-5.1)
[2025-07-06 08:57] VITALS: BP 116/76; PULSE 99; RESP 16; TEMP 36.6; O2SAT 92
[2025-07-06 09:04] VITALS: O2SAT 91
--- NOTE | 2025-07-06 15:42 | TREXTCAR_ITS ---
Diet Diet Order/Speech Therapy: INPATIENT Hospital Diet / Speech Therapy Order(s) 07/01/25 12:58 Diet: Carbohydrate Controlled Dietary Modifications:: Cardiac / Heart Healthy Routine Orders/Code Status Enema Type: Fleetz Enema Frequency: Daily PRN Suppository Frequency: Daily PRN DC O2, CPAP, BIPAP needs Home O2 Discharge instructions: Yes Type of respiratory needs?: Oxygen Oxygen frequency: Continuous Continuous oxygen liters per minute: 2 Therapies Weight Bearing: Weight bearing as tolerated Physical Therapy: Eval and Treat Occupational Therapy: Eval and Treat Problem/Diagnosis (1) Malignant pleural effusion: Status: Acute Code(s): J91.0 - Malignant pleural effusion (2) Ondjc-dr-mjahjvk kidney injury: Status: Chronic Code(s): N17.9 - Acute kidney failure, unspecified; N18.9 - Chronic kidney disease, unspecified Plan #Malignant right pleural effusion * Patient was admitted with a complaint of shortness of breath. Found to have a large right pleural effusion. * She was admitted in May 2025 for similar complaints. She had thoracentesis done and was discharged on 05/28/2025. Pulmonology was on consult during the admission. She had had a lung nodule which was biopsied in 2022 and did not show any evidence of cancer. Pulmonology was therefore concerned about possible malignancy. At the time of her discharge her fluid cytology was pending. * Cytology results came in on 06/10/2025. Patient was due to follow-up with pulmonology but states that it was canceled. 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 * Admitting doctor did speak to Dr. Calvo of the [facility] onc[facility] he requested a CT of the abdomen and pelvis which was negative for any evidence of malignancy. * on IV ceftriaxone and azithromycin * I discussed with Dr Chandler and he stated that [facility] will be able to get patient in to e clinic very quickly after discharge. * had thoracentesis with removal of 1.3L of blood tinged fluid on the right side. * titrate oxygen to maintain sats >90% * #Hypokalemia: Resolved #Chronic depression and bipolar disorder: On citalopram and Seroquel #COPD: Not in exacerbation. Breathing treatments with bronchodilators. #Hyperlipidemia: On statin #CKD stage IIIb: Creatinine at baseline. #Paroxysmal A-fib: Not on any rate limiting medications. Currently rate and rhythm controlled. Eliquis on hold. DVT prophylaxis: On Eliquis which is currently on hold. Will resume eliquis. Disposition; * patient was to be discharged today to go back [facility]. * However she requires oxygen and other homeless OTC they cannot take her with oxygen. * Case management working on placement at the SNF. * Still awaiting placement. She has now opted to go to SNF with hospice. Awaiting hospice evaluation. Allergies/Procedures Done in Hospital Allergies Penicillins Allergy (Intermediate, Verified 06/30/25 13:07) Hives carbamazepine (From Tegretol) Adverse Reaction (Intermediate, Verified 06/30/25 13:07) Nausea benztropine Adverse Reaction (Verified 06/30/25 13:07) Unknown diazepam (From Valium) Adverse Reaction (Verified 06/30/25 13:07) Other Sulfa (Sulfonamide Antibiotics) Adverse Reaction (Verified 06/30/25 13:07) Nausea thioridazine Adverse Reaction (Verified 06/30/25 13:07) Nausea thioridazine HCl (From Mellaril) Adverse Reaction (Verified 06/30/25 13:07) Other Procedures: Thoracentesis Type of Care/Length of Stay Estimated LOS: Convalescent Care Less Than 30 days Type of Care Needed: Skilled (residential with hospice) Rehab Potential: Poor Prognosis: Poor Additional Orders/Day of Discharge Day of Discharge: 07/06/25 Dietary and Speech Recommendations Dietitian Recommendations/Changes: Will change diet to CHO Controlled/Cardiac d/t pmhx Continue to follow and monitor for changes in pt nutritional status and make additional rec/ provide diet education as indicated Discharge Plan Admission Admit Date/Time: 06/30/25 15:59 Primary Reason for Your Visit: recurrent malignant pleural effusion Attending Provider: Shani Pelaez Primary Care Provider: Homer Bradford Consulting Providers: Azam Guillen; Ayaka Chicas; Matt Tobar; Tameka Drummond; Kelsie Park; Jaci Corbin; Kika Bermudez BUILDINGS AND GROUNDS COORDINATOR; Brionna Leiva Instructions Patient Instructions: RAD RN Thoracentesis Dc Discharge Orders/Prescriptions Prescriptions: Continued ipratropium-albuterol 0.5 mg-3 mg(2.5 mg base)/3 mL solution for nebulization 3 ml continuous nebulization ONCE Qty: 3 0RF nitroglycerin 0.4 mg tablet, sublingual 0.4 mg sublingual DAILY citalopram 10 mg tablet 10 mg PO DAILY ipratropium-albuterol 0.5 mg-3 mg(2.5 mg base)/3 mL solution for nebulization 3 ml inhalation Q20M PRN (Reason: shortness of breath) 30 Days Qty: 90 0RF Rx Instructions: for 3 doses methenamine hippurate 1 gram tablet 1 g PO BID Qty: 180 3RF Gemtesa 75 mg tablet 75 mg PO QDAY Qty: 90 3RF mupirocin 2 % ointment 1 applic topical TID quetiapine 200 mg tablet extended release 24 hr 200 mg PO DAILY Gemtesa 75 mg tablet 75 mg PO DAILY albuterol sulfate [Ventolin HFA] 90 mcg/actuation HFA aerosol inhaler 1 - 2 puff inhalation Q4H PRN PRN (Reason: Wheezing) Qty: 1 0RF trazodone 100 mg Tablet 100 mg PO QHS furosemide 20 mg tablet 20 mg PO DAILY Qty: 30 2RF ipratropium-albuterol 0.5 mg-3 mg(2.5 mg base)/3 mL solution for nebulization 3 ml inhalation Q4H PRN (Reason: shortness of breath or wheezing) Qty: 180 1RF Eliquis 5 mg Tablet 5 mg PO Q12 Qty: 60 0RF quetiapine 100 mg Tablet 200 mg PO BID Qty: 120 0RF lovastatin 40 mg tablet 20 mg PO QHS omeprazole 40 mg capsule,delayed release(DR/EC) 40 mg PO DAILY lorazepam 0.5 mg tablet 0.5 mg PO Q12H PRN (Reason: anxiety) aspirin 81 mg capsule 81 mg PO DAILY albuterol sulfate 90 mcg/actuation HFA aerosol inhaler 2 puff inhalation Q6H PRN (Reason: shortness of breath or wheezing) Qty: 8.5 0RF Discontinued prednisone 20 mg tablet 40 mg PO DAILY Qty: 10 0RF levofloxacin 750 mg tablet 750 mg PO DAILY Qty: 4 0RF Referrals / Follow Up: [facility] [Other, Hematology & Oncology] Referral Note: They are to call you with an appt time. Homer Bradford MD [Primary Care Provider, Family Practice] - Within 1 Week Jovana Contreras MD [Non-Staff, Medical] - 07/15/25 2:00 pm Referral Note: Transportation set up to pick you up at 1pm to take you to appt and pick you up to return home at 3pm. If you need to reschedule, call [phone]. Disposition Disposition (needs filled in before D/C Order can be placed): [facility] Facility
--- NOTE | 2025-07-06 15:44 | PCM.DC.SUM ---
Providers Date of Admission: 06/30/25 Date of Discharge: 07/06/25 Primary Care Physician: Dr. Homer Bradford MD Consultations 07/04/25 15:58 Consult: Inpatient Palliative Care Routine Consulting Provider: Ayaka Chicas Reason for Consult: recent cancer diagnosis, increased oxygen needs EMERGENT Consult: No MD Notified: Yes Date Notified: 07/04/25 Time Notified: 15:58 Method of Notification: Text 07/05/25 10:00 Consult: Hospice / Outpatient Palliative Care Routine Consulting Provider: [facility] Reason for Consult: Recent cancer diagnosis, increased oxygen needs, decline in health EMERGENT Consult: No MD Notified: Yes Date Notified: 07/05/25 Time Notified: 10:00 Method of Notification: Text Reason For Visit: HYPOXIA RIGHT PLEURAL EFFUSION Diagnosis Discharge Diagnosis (1) Malignant pleural effusion: Status: Acute Code(s): J91.0 - Malignant pleural effusion (2) Ggjsm-dc-gxafien kidney injury: Status: Chronic Code(s): N17.9 - Acute kidney failure, unspecified; N18.9 - Chronic kidney disease, unspecified Plan #Malignant right pleural effusion Patient was admitted with a complaint of shortness of breath. Found to have a large right pleural effusion. She was admitted in May 2025 for similar complaints. She had thoracentesis done and was discharged on 05/28/2025. Pulmonology was on consult during the admission. She had had a lung nodule which was biopsied in 2022 and did not show any evidence of cancer. Pulmonology was therefore concerned about possible malignancy. At the time of her discharge her fluid cytology was pending. Cytology results came in on 06/10/2025. Patient was due to follow-up with pulmonology but states that it was canceled. With this being a malignant pleural effusion she has likely has a stage IV lung adenocarcinoma. Admitting doctor did speak to Dr. Calvo of the [facility] oncology he requested a CT of the abdomen and pelvis which was negative for any evidence of malignancy. on IV ceftriaxone and azithromycin I discussed with Dr Chandler and he stated that [facility] will be able to get patient in to hte clinic very quickly after discharge. had thoracentesis with removal of 1.3L of blood tinged fluid on the right side. titrate oxygen to maintain sats >90% #Hypokalemia: Resolved #Chronic depression and bipolar disorder: On citalopram and Seroquel #COPD: Not in exacerbation. Breathing treatments with bronchodilators. #Hyperlipidemia: On statin #CKD stage IIIb: Creatinine at baseline. #Paroxysmal A-fib: Not on any rate limiting medications. Currently rate and rhythm controlled. Eliquis on hold. DVT prophylaxis: On Eliquis which is currently on hold. Will resume eliquis. Disposition; patient was to be discharged today to go back to her homeless intermediate. However she requires oxygen and other homeless OTC they cannot take her with oxygen. Case management working on placement at the SNF. Still awaiting placement. She has now opted to go to SNF with hospice. Awaiting hospice evaluation. Medications at Discharge Home Medications apixaban 5 mg tablet (Eliquis) 5 mg PO Q12 #60 tabs 11/07/24 quetiapine 100 mg tablet 200 mg (2 x 100 mg) PO BID #120 tabs 11/07/24 lorazepam 0.5 mg tablet 0.5 mg PO Q12H PRN anxiety 11/14/24 lovastatin 40 mg tablet 20 mg PO QHS 11/14/24 omeprazole 40 mg capsule,delayed release 40 mg PO DAILY 11/14/24 aspirin 81 mg capsule 81 mg PO DAILY 01/08/25 mupirocin 2 % topical ointment 1 applic topical TID 01/29/25 quetiapine 200 mg tablet,extended release 24 hr 200 mg PO DAILY 01/29/25 vibegron 75 mg tablet (Gemtesa) 75 mg PO DAILY 01/29/25 citalopram 10 mg tablet 10 mg PO DAILY 01/31/25 ipratropium 0.5 mg-albuterol 3 mg (2.5 mg base)/3 mL nebulization soln 3 ml continuous nebulization ONCE shortness of breath #3 mL 01/31/25 ipratropium 0.5 mg-albuterol 3 mg (2.5 mg base)/3 mL nebulization soln 3 ml inhalation Q20M PRN shortness of breath 1 month #90 mL 01/31/25 nitroglycerin 0.4 mg sublingual tablet 0.4 mg sublingual DAILY 01/31/25 Gemtesa 75 mg tablet (vibegron) 75 mg PO QDAY #90 tabs 02/27/25 methenamine hippurate 1 gram tablet 1 g PO BID #180 tabs 02/27/25 albuterol sulfate 90 mcg/actuation aerosol inhaler 2 puff inhalation Q6H PRN shortness of breath or wheezing #8.5 grams 04/24/25 albuterol sulfate 90 mcg/actuation aerosol inhaler (Ventolin HFA) 1 - 2 puff inhalation Q4H PRN PRN Wheezing ##1 04/30/25 trazodone 100 mg tablet 100 mg PO QHS 05/24/25 furosemide 20 mg tablet 20 mg PO DAILY #30 tabs 05/28/25 ipratropium 0.5 mg-albuterol 3 mg (2.5 mg base)/3 mL nebulization soln 3 ml inhalation Q4H PRN shortness of breath or wheezing #180 mL 05/28/25 Hospital Course Operations None Procedures Thoracentesis Summary of Care Provided Minutes Spent on Discharge: 45 Hospital Course: Patient is a 65-year-old female with a past medical history as outlined was admitted through the ED on 06/30/2025 with a complaint of shortness of breath and concern for pneumonia. She had been hospitalized about a month prior to this admission for pneumonia and placed on antibiotics and steroids. She had undergone a thoracentesis during that admission and cytology was pending at time of discharge. Pulmonology also reviewed patient during that admission. She was discharged on 05/28/2025 to follow-up with pulmonology on outpatient basis. She had had a lung nodule from 2022 which was biopsied then and did not show any evidence of cancer. During this admission pulmonology was worried about malignancy. Cytology results came back on 06/10/2025 which showed evidence of adenocarcinoma. Patient was due to follow-up with pulmonology but says that it was canceled. For this admission CT of the chest done on admission showed a right large pleural effusion with compressive atelectasis of the right lower lobe and concern for right upper lobe infiltrate. WBC was 14. Lactic acid was 2.9. Respiratory panel was negative. She was admitted and managed for hypoxia due to malignant right pleural effusion in the setting of stage IV adenocarcinoma. Her Eliquis was held and she had thoracentesis on the right done with removal of a [address] of the abdomen and pelvis showed no evidence of any metastatic spread. Patient was a patient of [facility] and so preferred to follow-up there. This hospitalist therefore discussed with Dr. Calvo of [facility] oncology who stated that they will be able to get the patient in very quickly after discharge. Palliative care was consulted and [facility]. [facility] on 07[facility]/2025 on 2 L of oxygen. She is follow-up with her primary care doctor and to follow-up with oncology on outpatient basis. Patient seen and examined prior to discharge. He had no complaints and had an uneventful night. Review of systems otherwise negative. Labs and vitals reviewed. Home medication reviewed and reconciled. Physical Exam Const alert, oriented x3 and no apparent distress Constitutional Narrative: frail, weak General Appearance: cooperative Orientation / Consciousness: awake and oriented to person HEENT normocephalic, head/scalp atraumatic, hearing grossly normal bilaterally, moist oral mucous membranes and oropharynx normal Mouth: oral and palatal mucosa normal Eyes EOMs intact bilaterally and conjunctivae normal Neck supple, no JVD, thyroid normal and no carotid bruits General: trachea midline Lymph Lymphatic: no lymphedema noted Resp Resp Narrative: moderately diminished breath sounds bibasally, no wheezes or crackles. On 2 L of oxygen. Auscultation: Negative for rales, rhonchi or wheezes Cardio regular rate, regular rhythm, S1 normal heart sound, S2 normal heart sound and no murmurs GI normal to inspection, nondistended, normoactive bowel sounds, soft to palpation, non-tender and non-distended Extremity normal to inspection, full ROM, normal capillary refill, no clubbing, cyanosis or edema and no calf tenderness General Extremity: no tenderness to palpation of joints or extremities Skin no rashes or lesions noted General Skin Exam: no breakdown Neuro oriented x3, CN's II-XII intact bilaterally, moves all extremities, no focal motor deficits and no sensory deficits noted Sensorium / Orientation: awake and alert Speech: speech normal Motor Exam: general weakness Psych thought process normal and cooperative Psych Narrative: P Appearance: appropriate Medical Records Data Homelessness:: Unsheltered Weight / BMI Weight Weight: 230 lb Body Mass Index (BMI) 40.7 ABG / Lab / Microbiology Data 07/06/25 06:17 07/06/25 06:17 Laboratory: Laboratory Results - last 24 hr 07/05/25 16:32: POC Glucose 94 07/06/25 06:17: WBC 10.1, RBC 5.02, Hgb 15.3 H, Hct 47.2 H, MCV 94.0, MCH 30.5, MCHC 32.4, RDW Std Deviation 48.3 H, RDW Coeff of Robert 13.8, Plt Count 208, MPV 11.0, Immature Gran % (Auto) 0.200, Neut % (Auto) 71.7 H, Lymph % (Auto) 15.6 L, Richardson % (Auto) 10.7 H, Eos % (Auto) 1.4, Baso % (Auto) 0.4, Absolute Neuts (auto) 7.2, Absolute Lymphs (auto) 1.57, Nucleated RBC % 0, Sodium 138, Potassium 3.4, Chloride 99, Carbon Dioxide 28.9, Anion Gap 11, BUN 15, Creatinine 1.03, Estim Creat Clear Calc 63.36, Est GFR (MDRD) Non-Af 61, BUN/Creatinine Ratio 14.7, Glucose 93, Calcium 9.0 Microbiology: Microbiology 06/30/25 13:36 Blood Culture (Wb) - Anticubital Right Blood Culture - Final No growth in 5 days. 06/30/25 13:55 Blood Culture (Wb) - Anticubital Right Blood Culture - Final No growth in 5 days. 06/30/25 13:58 Mucosa - Nose SARS-CoV-2, Influenza & RSV (PCR) - Final D/C Instructions Discharge Activity: Return to Normal Activity Weight Bearing Status: Weight bearing as tolerated Call your doctor if you observe: Fever of 101 or Higher, Shortness of breath, Dizziness, Swelling in the ankles and Chest pain DC O2, CPAP, BIPAP Needs Home O2 Discharge instructions: Yes Type of respiratory needs?: Oxygen Oxygen frequency: Continuous Continuous oxygen liters per minute: 2 DC home with Oxygen: Yes Home O2 MD Review: I have reviewed the oxygen testing, and the patient qualifies for home oxygen equipment and portability. The patient is mobile in the home and the community. Patient's Goals Of Care - F/U Goals Reviewed Goals of care reviewed with patient: Yes - No change Meaningful Use Info Meaningful Use Meaningful Use Diagnoses (Choose all that apply): None applicable Discharge Plan Admission Admit Date/Time: 12/14/25 15:59 Primary Reason for Your Visit: recurrent malignant pleural effusion Attending Provider: Shani Pelaez Primary Care Provider: Homer Bradford Consulting Providers: Azam Guillen; Ayaka Chicas; Matt Tobar; Tameka Drummond; Kelsie Park; Jaci Corbin; Kika Bermudez QA LEAD; Brionna Leiva Instructions Patient Instructions: RAD RN Thoracentesis Dc Discharge Orders/Prescriptions Prescriptions: Continued ipratropium-albuterol 0.5 mg-3 mg(2.5 mg base)/3 mL solution for nebulization 3 ml continuous nebulization ONCE Qty: 3 0RF nitroglycerin 0.4 mg tablet, sublingual 0.4 mg sublingual DAILY citalopram 10 mg tablet 10 mg PO DAILY ipratropium-albuterol 0.5 mg-3 mg(2.5 mg base)/3 mL solution for nebulization 3 ml inhalation Q20M PRN (Reason: shortness of breath) 30 Days Qty: 90 0RF Rx Instructions: for 3 doses methenamine hippurate 1 gram tablet 1 g PO BID Qty: 180 3RF Gemtesa 75 mg tablet 75 mg PO QDAY Qty: 90 3RF mupirocin 2 % ointment 1 applic topical TID quetiapine 200 mg tablet extended release 24 hr 200 mg PO DAILY Gemtesa 75 mg tablet 75 mg PO DAILY albuterol sulfate [Ventolin HFA] 90 mcg/actuation HFA aerosol inhaler 1 - 2 puff inhalation Q4H PRN PRN (Reason: Wheezing) Qty: 1 0RF trazodone 100 mg Tablet 100 mg PO QHS furosemide 20 mg tablet 20 mg PO DAILY Qty: 30 2RF ipratropium-albuterol 0.5 mg-3 mg(2.5 mg base)/3 mL solution for nebulization 3 ml inhalation Q4H PRN (Reason: shortness of breath or wheezing) Qty: 180 1RF Eliquis 5 mg Tablet 5 mg PO Q12 Qty: 60 0RF quetiapine 100 mg Tablet 200 mg PO BID Qty: 120 0RF lovastatin 40 mg tablet 20 mg PO QHS omeprazole 40 mg capsule,delayed release(DR/EC) 40 mg PO DAILY lorazepam 0.5 mg tablet 0.5 mg PO Q12H PRN (Reason: anxiety) aspirin 81 mg capsule 81 mg PO DAILY albuterol sulfate 90 mcg/actuation HFA aerosol inhaler 2 puff inhalation Q6H PRN (Reason: shortness of breath or wheezing) Qty: 8.5 0RF Discontinued prednisone 20 mg tablet 40 mg PO DAILY Qty: 10 0RF levofloxacin 750 mg tablet 750 mg PO DAILY Qty: 4 0RF Referrals / Follow Up: [facility] [Other, Hematology & Oncology] Referral Note: They are to call you with an appt time. Homer Bradford MD [Primary Care Provider, Family Practice] - Within 1 Week Jovana Contreras MD [Non-Staff, Medical] - 07/15/25 2:00 pm Referral Note: Transportation set up to pick you up at 1pm to take you to appt and pick you up to return home at 3pm. If you need to reschedule, call [phone]. Disposition Disposition (needs filled in before D/C Order can be placed): Residential Facility Charges/Coding Visit Charges Inpatient E&M: 93865 Disch Hosp >30min
--- NOTE | 2025-07-06 19:05 | PN_ITS ---
Subjective Subjective Patient seen and examined with her nurse by her bedside this morning. She still complained of some retrosternal chest pain which was thought to be due to reflux. Review of systems is otherwise negative. She was discharged to SNF with hospice earlier today, but I was subsequently informed that SNF can only take her tomorrow. Discharge therefore canceled. She remains on 2L of oxygen. Objective Data Objective Data Vital Signs: Vital Signs Temp Pulse Resp BP Pulse Ox O2 Del Method O2 Flow Rate 97.8 F 99 16 116/76 91 Nasal Cannula 2 07/06/25 08:57 07/06/25 08:57 07/06/25 08:57 07/06/25 08:57 07/06/25 09:04 07/06/25 09:04 07/06/25 09:04 Oxygen Flow Rate (L/min) 2 Oxygen Delivery Method Nasal Cannula Weight: 230 lb Body Mass Index (BMI) 40.7 Intake & Output: Intake and Output for Last 24 Hours 07/04/25 07/05/25 07/06/25 23:59 23:59 23:59 Intake Total 600 / 600 700 / 700 Output Total 1700 / 1700 0 / 0 Balance -1100 / -1100 700 / 700 Lab / Micro Data 07/06/25 06:17 07/06/25 06:17 Labs: Laboratory Results - last 24 hr 07/06/25 06:17: WBC 10.1, RBC 5.02, Hgb 15.3 H, Hct 47.2 H, MCV 94.0, MCH 30.5, MCHC 32.4, RDW Std Deviation 48.3 H, RDW Coeff of Robert 13.8, Plt Count 208, MPV 11.0, Immature Gran % (Auto) 0.200, Neut % (Auto) 71.7 H, Lymph % (Auto) 15.6 L, Ralls % (Auto) 10.7 H, Eos % (Auto) 1.4, Baso % (Auto) 0.4, Absolute Neuts (auto) 7.2, Absolute Lymphs (auto) 1.57, Nucleated RBC % 0, Sodium 138, Potassium 3.4, Chloride 99, Carbon Dioxide 28.9, Anion Gap 11, BUN 15, Creatinine 1.03, Estim Creat Clear Calc 63.36, Est GFR (MDRD) Non-Af 61, BUN/Creatinine Ratio 14.7, Glucose 93, Calcium 9.0 Micro: Microbiology 06/30/25 13:36 Blood Culture (Wb) - Anticubital Right Blood Culture - Final No growth in 5 days. 06/30/25 13:55 Blood Culture (Wb) - Anticubital Right Blood Culture - Final No growth in 5 days. 06/30/25 13:58 Mucosa - Nose SARS-CoV-2, Influenza & RSV (PCR) - Final Social Homelessness:: Unsheltered Physical Exam Const alert, oriented x3 and no apparent distress Constitutional Narrative: frail, weak General Appearance: cooperative, well kempt and well developed Orientation / Consciousness: awake HEENT normocephalic, head/scalp atraumatic, hearing grossly normal bilaterally, moist oral mucous membranes and oropharynx normal Eyes EOMs intact bilaterally and conjunctivae normal Neck supple, no JVD, thyroid normal and no carotid bruits General: trachea midline Lymph Lymphatic: no lymphedema noted Resp Resp Narrative: moderately diminished breath sounds bibasally, no wheezes or crackles. On 2 L of oxygen. Cardio regular rate, regular rhythm, S1 normal heart sound, S2 normal heart sound and no murmurs GI normal to inspection, nondistended, normoactive bowel sounds, soft to palpation, non-tender and non-distended Extremity normal to inspection, full ROM, normal capillary refill, no clubbing, cyanosis or edema and no calf tenderness General Extremity: no tenderness to palpation of joints or extremities Skin no rashes or lesions noted General Skin Exam: no breakdown Neuro oriented x3, moves all extremities, no focal motor deficits and no sensory deficits noted Sensorium / Orientation: awake and alert Speech: speech normal Motor Exam: general weakness Psych thought process normal and cooperative Appearance: appropriate Assessment & Plan Assessment/Plan (1) Malignant pleural effusion: (2) [id number] kidney injury: PLAN: Plan #Malignant right pleural effusion * Patient was admitted with a complaint of shortness of breath. Found to have a large right pleural effusion. * She was admitted in May 2025 for similar complaints. She had thoracentesis done and was discharged on 05/28/2025. Pulmonology was on consult during the admission. She had had a lung nodule which was biopsied in 2022 and did not show any evidence of cancer. Pulmonology was therefore concerned about possible malignancy. At the time of her discharge her fluid cytology was pending. * Cytology results came in on 06/10/2025. Patient was due to follow-up with pulmonology but states that it was canceled. 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 * Admitting doctor did speak to Dr. Calvo [facility] he requested a CT of the abdomen and pelvis which was negative for any evidence of malignancy. * on IV ceftriaxone and azithromycin * I discussed with Dr Chandler and he stated that [facility] will be able to get patient in to hte clinic very quickly after discharge. * had thoracentesis with removal of 1.3L of blood tinged fluid on the right side. * titrate oxygen to maintain sats >90% * #Hypokalemia: Resolved #Chronic depression and bipolar disorder: On citalopram and Seroquel #COPD: Not in exacerbation. Breathing treatments with bronchodilators. #Hyperlipidemia: On statin #CKD stage IIIb: Creatinine at baseline. #Paroxysmal A-fib: Not on any rate limiting medications. Currently rate and rhythm controlled. Eliquis resumed. DVT prophylaxis: On Eliquis. Will resume eliquis. Disposition; * patient was to be [facility] today [facility] * However she requires oxygen and other homeless OTC they cannot take her with oxygen. * Case management working on placement at the SNF. * accepted at SNF. She also met with hospice and has elected to go to SNF with hospice. * For DC tomorrow as SNF can take her tomorrow. * Charges/Coding Visit Charges Inpatient E&M: 68255 Subs Hosp L2
[2025-07-06 21:50] VITALS: BP 118/65; PULSE 95; RESP 18; TEMP 36.4; O2SAT 94
[2025-07-06] MEDS: MorphINE SOLN 10 MG/0.5 ML PO.SYRINGE 5 MG SL/PO (22:02)
[2025-07-07 05:29] LABS: Hematocrit 45.9 % (37-47); Hemoglobin 15.2 g/dL (12.0-15.0); Immature Granulocytes Count 0.030 X10^3/uL (0.0-0.0); Mean Corp Hgb Conc 33.1 g/dL (32-36); Mean Corpuscular Volume 92.9 fL (81-99); Mean Platelet Vol. 11.0 fl (6.2-12.0); NRBC Flagged by Analyzer 0 % (0-5); Platelet Count 212 K/mm3 (150-450); RBC Distribution Width CV 13.8 % (11.6-14.6); RBC Distribution Width SD 47.4 fl (35.1-43.9); Red Blood Count 4.94 M/mm3 (4.2-5.4); White Blood Count 9.5 K/mm3 (4.4-11.0)
[2025-07-07 05:46] LABS: Anion Gap 10 (5-15); BUN 17 mg/dL (4-19); BUN/Creat Ratio 13.9 RATIO (10-20); Calcium,Total 8.6 mg/dL (7.6-11.0); Carbon Dioxide 29.0 mmol/L (21.0-32.0); Chloride 97 mmol/L (98-108); Estimated Creatinine Clearance 53.49 ml/min (50-250); Glucose 151 mg/dL (70-99); Potassium 3.1 mmol/L (3.3-5.1)
[2025-07-07] MEDS: Potassium Chloride Oral Tablet 20 MEQ 40 MEQ PO (08:49)
[2025-07-07 09:13] VITALS: BP 101/64; PULSE 80; RESP 16; TEMP 36.6; O2SAT 98
--- NOTE | 2025-07-07 13:30 | DS.PCM_ITS ---
Providers Date of Admission: 06/30/25 Date of Discharge: 07/07/25 Primary Care Physician: Dr. Homer Bradford MD Consultations 07/04/25 15:58 Consult: Inpatient Palliative Care Routine Consulting Provider: Ayaka Chicas Reason for Consult: recent cancer diagnosis, increased oxygen needs EMERGENT Consult: No MD Notified: Yes Date Notified: 07/04/25 Time Notified: 15:58 Method of Notification: Text 07/05/25 10:00 Consult: Hospice / Outpatient Palliative Care Routine Consulting Provider: [facility] Reason for Consult: Recent cancer diagnosis, increased oxygen needs, decline in health EMERGENT Consult: No MD Notified: Yes Date Notified: 07/05/25 Time Notified: 10:00 Method of Notification: Text Reason For Visit: HYPOXIA RIGHT PLEURAL EFFUSION Diagnosis Discharge Diagnosis (1) Malignant pleural effusion: Status: Acute Code(s): J91.0 - Malignant pleural effusion (2) [id number] kidney injury: Status: Chronic Code(s): N17.9 - Acute kidney failure, unspecified; N18.9 - Chronic kidney disease, unspecified Plan #Malignant right pleural effusion * Patient was admitted with a complaint of shortness of breath. Found to have a large right pleural effusion. * She was admitted in May 2025 for similar complaints. She had thoracentesis done and was discharged on 05/28/2025. Pulmonology was on consult during the admission. She had had a lung nodule which was biopsied in 2022 and did not show any evidence of cancer. Pulmonology was therefore concerned about possible malignancy. At the time of her discharge her fluid cytology was pending. * Cytology results came in on 06/10/2025. Patient was due to follow-up with pulmonology but states that it was canceled. 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 * Admitting doctor did speak to Dr. Calvo of the [facility] he requested a CT of the abdomen and pelvis which was negative for any evidence of malignancy. * on IV ceftriaxone and azithromycin * I discussed with Dr Chandler and he stated that [facility] will be able to get patient in to e clinic very quickly after discharge. * had thoracentesis with removal of 1.3L of blood tinged fluid on the right side. * titrate oxygen to maintain sats >90% * #Hypokalemia: Resolved #Chronic depression and bipolar disorder: On citalopram and Seroquel #COPD: Not in exacerbation. Breathing treatments with bronchodilators. #Hyperlipidemia: On statin #CKD stage IIIb: Creatinine at baseline. #Paroxysmal A-fib: Not on any rate limiting medications. Currently rate and rhythm controlled. Eliquis resumed. DVT prophylaxis: On Eliquis. Will resume eliquis. Disposition; * patient was to be discharged today to go back to her homeless care home. * However she requires oxygen and other homeless OTC they cannot take her with oxygen. * Case management working on placement at the SNF. * accepted at SNF. She also met with hospice and has elected to go to SNF with hospice. * For DC tomorrow as SNF can take her tomorrow. * Medications at Discharge Home Medications apixaban 5 mg tablet (Eliquis) 5 mg PO Q12 #60 tabs 11/07/24 quetiapine 100 mg tablet 200 mg (2 x 100 mg) PO BID #120 tabs 11/07/24 lorazepam 0.5 mg tablet 0.5 mg PO Q12H PRN anxiety 11/14/24 lovastatin 40 mg tablet 20 mg PO QHS 11/14/24 omeprazole 40 mg capsule,delayed release 40 mg PO DAILY 11/14/24 aspirin 81 mg capsule 81 mg PO DAILY 01/08/25 mupirocin 2 % topical ointment 1 applic topical TID 01/29/25 quetiapine 200 mg tablet,extended release 24 hr 200 mg PO DAILY 01/29/25 vibegron 75 mg tablet (Gemtesa) 75 mg PO DAILY 01/29/25 citalopram 10 mg tablet 10 mg PO DAILY 01/31/25 ipratropium 0.5 mg-albuterol 3 mg (2.5 mg base)/3 mL nebulization soln 3 ml continuous nebulization ONCE shortness of breath #3 mL 01/31/25 ipratropium 0.5 mg-albuterol 3 mg (2.5 mg base)/3 mL nebulization soln 3 ml inhalation Q20M PRN shortness of breath 1 month #90 mL 01/31/25 nitroglycerin 0.4 mg sublingual tablet 0.4 mg sublingual DAILY 01/31/25 Gemtesa 75 mg tablet (vibegron) 75 mg PO QDAY #90 tabs 02/27/25 methenamine hippurate 1 gram tablet 1 g PO BID #180 tabs 02/27/25 albuterol sulfate 90 mcg/actuation aerosol inhaler 2 puff inhalation Q6H PRN shortness of breath or wheezing #8.5 grams 04/24/25 albuterol sulfate 90 mcg/actuation aerosol inhaler (Ventolin HFA) 1 - 2 puff inhalation Q4H PRN PRN Wheezing ##1 04/30/25 trazodone 100 mg tablet 100 mg PO QHS 05/24/25 furosemide 20 mg tablet 20 mg PO DAILY #30 tabs 05/28/25 ipratropium 0.5 mg-albuterol 3 mg (2.5 mg base)/3 mL nebulization soln 3 ml inhalation Q4H PRN shortness of breath or wheezing #180 mL 05/28/25 Hospital Course Operations None Procedures Thoracentesis Summary of Care Provided Minutes Spent on Discharge: 47 Hospital Course: Patient is a 65-year-old female with a past medical history as outlined was admitted through the ED on 06/30/2025 with a complaint of shortness of breath and concern for pneumonia. She had been hospitalized about a month prior to this admission for pneumonia and placed on antibiotics and steroids. She had undergone a thoracentesis during that admission and cytology was pending at time of discharge. Pulmonology also reviewed patient during that admission. She was discharged on 05/28/2025 to follow-up with pulmonology on outpatient basis. She had had a lung nodule from 2022 which was biopsied then and did not show any evidence of cancer. During this admission pulmonology was worried about malignancy. Cytology results came back on 06/10/2025 which showed evidence of adenocarcinoma. Patient was due to follow-up with pulmonology but says that it was canceled. For this admission CT of the chest done on admission showed a right large pleural effusion with compressive atelectasis of the right lower lobe and concern for right upper lobe infiltrate. WBC was 14. Lactic acid was 2.9. Respiratory panel was negative. She was admitted and managed for hypoxia due to malignant right pleural effusion in the setting of stage IV adenocarcinoma. Her Eliquis was held and she had thoracentesis on the right done with removal of a [address] of the abdomen and pelvis showed no evidence of any metastatic spread. Patient was a patient of [facility] and so preferred to follow-up there. This hospitalist therefore discussed with Dr. Calvo of [facility] oncology who stated that they will be able to get the patient in very quickly after discharge. Palliative care was consulted and [facility]. [facility] 07/07/2025 on 2 L of oxygen. She is follow-up with her primary care doctor and to follow-up with oncology on outpatient basis. Patient seen and examined prior to discharge. She had no complaints and had an uneventful night. Review of systems otherwise negative. Labs and vitals reviewed. Home medication reviewed and reconciled. Physical Exam Const alert, oriented x3 and no apparent distress Constitutional Narrative: frail, weak General Appearance: cooperative, well kempt and well developed Orientation / Consciousness: awake HEENT normocephalic, head/scalp atraumatic, hearing grossly normal bilaterally, moist oral mucous membranes and oropharynx normal Eyes PERRL and EOMs intact bilaterally Neck supple, no JVD and thyroid normal General: trachea midline Lymph Lymphatic: no lymphedema noted Resp Resp Narrative: moderately diminished breath sounds bibasally, no wheezes or crackles. On 2 L of oxygen. Cardio regular rate, regular rhythm, S1 normal heart sound, S2 normal heart sound and no murmurs GI normal to inspection, nondistended, normoactive bowel sounds, soft to palpation, non-tender and non-distended Extremity normal to inspection, full ROM, normal capillary refill, no clubbing, cyanosis or edema and no calf tenderness General Extremity: no tenderness to palpation of joints or extremities Skin no rashes or lesions noted General Skin Exam: no breakdown Neuro oriented x3, moves all extremities and no focal motor deficits Sensorium / Orientation: awake and alert Speech: speech normal Motor Exam: general weakness Psych thought process normal and cooperative Appearance: appropriate Medical Records Data Homelessness:: Unsheltered Weight / BMI Weight Weight: 230 lb Body Mass Index (BMI) 40.7 ABG / Lab / Microbiology Data 07/07/25 04:53 07/07/25 04:53 Laboratory: Laboratory Results - last 24 hr 07/07/25 04:53: WBC 9.5, RBC 4.94, Hgb 15.2 H, Hct 45.9, MCV 92.9, MCH 30.8, MCHC 33.1, RDW Std Deviation 47.4 H, RDW Coeff of Robert 13.8, Plt Count 212, MPV 11.0, Immature Gran % (Auto) 0.300, Neut % (Auto) 58.8, Lymph % (Auto) 25.7, M yesy % (Auto) 10.7 H, Eos % (Auto) 4.1, Baso % (Auto) 0.4, Absolute Neuts (auto) 5.6, Absolute Lymphs (auto) 2.44, Nucleated RBC % 0, Sodium 136, Potassium 3.1 L , Chloride 97 L, Carbon Dioxide 29.0, Anion Gap 10, BUN 17, Creatinine 1.22 H, Estim Creat Clear Calc 53.49, Est GFR (MDRD) Non-Af 50 L, BUN/Creatinine Ratio 13.9, Glucose 151 H, Calcium 8.6 Microbiology: Microbiology 06/30/25 13:36 Blood Culture (Wb) - Anticubital Right Blood Culture - Final No growth in 5 days. 06/30/25 13:55 Blood Culture (Wb) - Anticubital Right Blood Culture - Final No growth in 5 days. 06/30/25 13:58 Mucosa - Nose SARS-CoV-2, Influenza & RSV (PCR) - Final D/C Instructions Discharge Activity: Return to Normal Activity Weight Bearing Status: Weight bearing as tolerated Call your doctor if you observe: Fever of 101 or Higher, Shortness of breath, Dizziness, Swelling in the ankles and Chest pain DC O2, CPAP, BIPAP Needs Home O2 Discharge instructions: Yes Type of respiratory needs?: Oxygen Oxygen frequency: Continuous Continuous oxygen liters per minute: 2 DC home with Oxygen: Yes Home O2 MD Review: I have reviewed the oxygen testing, and the patient qualifies for home oxygen equipment and portability. The patient is mobile in the home and the community. Patient's Goals Of Care - F/U Goals Reviewed Goals of care reviewed with patient: Yes - No change Meaningful Use Info Meaningful Use Meaningful Use Diagnoses (Choose all that apply): None applicable Discharge Plan Admission Admit Date/Time: 06/30/25 15:59 Primary Reason for Your Visit: recurrent malignant pleural effusion Attending Provider: Shani Pelaez Primary Care Provider: Homer Bradford Consulting Providers: Azam Guillen; Ayaka Chicas; Matt Tobar; Tameka Drummond; Kelsie Park; Jaci Corbin; Kika Bermudez NP; Brionna Leiva Instructions Patient Instructions: DARRON RN Thoracentesis Dc Discharge Orders/Prescriptions Prescriptions: Continued ipratropium-albuterol 0.5 mg-3 mg(2.5 mg base)/3 mL solution for nebulization 3 ml continuous nebulization ONCE Qty: 3 0RF nitroglycerin 0.4 mg tablet, sublingual 0.4 mg sublingual DAILY citalopram 10 mg tablet 10 mg PO DAILY ipratropium-albuterol 0.5 mg-3 mg(2.5 mg base)/3 mL solution for nebulization 3 ml inhalation Q20M PRN (Reason: shortness of breath) 30 Days Qty: 90 0RF Rx Instructions: for 3 doses methenamine hippurate 1 gram tablet 1 g PO BID Qty: 180 3RF Gemtesa 75 mg tablet 75 mg PO QDAY Qty: 90 3RF mupirocin 2 % ointment 1 applic topical TID quetiapine 200 mg tablet extended release 24 hr 200 mg PO DAILY Gemtesa 75 mg tablet 75 mg PO DAILY albuterol sulfate [Ventolin HFA] 90 mcg/actuation HFA aerosol inhaler 1 - 2 puff inhalation Q4H PRN PRN (Reason: Wheezing) Qty: 1 0RF trazodone 100 mg Tablet 100 mg PO QHS furosemide 20 mg tablet 20 mg PO DAILY Qty: 30 2RF ipratropium-albuterol 0.5 mg-3 mg(2.5 mg base)/3 mL solution for nebulization 3 ml inhalation Q4H PRN (Reason: shortness of breath or wheezing) Qty: 180 1RF Eliquis 5 mg Tablet 5 mg PO Q12 Qty: 60 0RF quetiapine 100 mg Tablet 200 mg PO BID Qty: 120 0RF lovastatin 40 mg tablet 20 mg PO QHS omeprazole 40 mg capsule,delayed release(DR/EC) 40 mg PO DAILY lorazepam 0.5 mg tablet 0.5 mg PO Q12H PRN (Reason: anxiety) aspirin 81 mg capsule 81 mg PO DAILY albuterol sulfate 90 mcg/actuation HFA aerosol inhaler 2 puff inhalation Q6H PRN (Reason: shortness of breath or wheezing) Qty: 8.5 0RF Discontinued prednisone 20 mg tablet 40 mg PO DAILY Qty: 10 0RF levofloxacin 750 mg tablet 750 mg PO DAILY Qty: 4 0RF Referrals / Follow Up: [facility] [Other, Hematology & Oncology] Referral Note: They are to call you with an appt time. Homer Bradford MD [Primary Care Provider, Family Practice] - Within 1 Week Jovana Contreras MD [Non-Staff, Medical] - 07/15/25 2:00 pm Referral Note: Transportation set up to pick you up at 1pm to take you to appt and pick you up to return home at 3pm. If you need to reschedule, call [phone]. Disposition Disposition (needs filled in before D/C Order can be placed): [facility] Facility Charges/Coding Visit Charges Inpatient E&M: 33874 Disch Hosp >30min
== END 2025-07-07 10:23 | disposition skilled nursing facility (03) | DRG 136 ==
LOC: ED 13:33 → MS3 16:00
PROVIDERS: Radiology Nuclear Radiology; Admitting Provider Internal Medicine; Emergency Provider Student in an Organized Health Care Education/Training Program; PCP Family Medicine; Visit Provider Student in an Organized Health Care Education/Training Program
DX: C34.90 Malignant neoplasm of unspecified part of unspecified bronchus or lung (principal); Z59.01 Sheltered homelessness; E11.22 Type 2 diabetes mellitus with diabetic chronic kidney disease; E66.813 Obesity, class 3; D72.829 Elevated white blood cell count, unspecified; E78.00 Pure hypercholesterolemia, unspecified; J91.0 Malignant pleural effusion; Z51.5 Encounter for palliative care; N18.32 Chronic kidney disease, stage 3b; J44.9 Chronic obstructive pulmonary disease, unspecified; F31.9 Bipolar disorder, unspecified; I48.0 Paroxysmal atrial fibrillation; F17.210 Nicotine dependence, cigarettes, uncomplicated; I25.2 Old myocardial infarction; K21.9 Gastro-esophageal reflux disease without esophagitis; Z68.41 Body mass index [BMI] 40.0-44.9, adult; E87.6 Hypokalemia; F41.9 Anxiety disorder, unspecified; Z66 Do not resuscitate; Z79.82 Long term (current) use of aspirin; R09.02 Hypoxemia; Z79.01 Long term (current) use of anticoagulants; Z86.73 Personal history of transient ischemic attack (TIA), and cerebral infarction without residual deficits; Z79.899 Other long term (current) drug therapy; Z90.49 Acquired absence of other specified parts of digestive tract; R07.9 Chest pain, unspecified
CPT/HCPCS: 32555; 36415; 71275; 74174; 80048; 82803; 82962; 83605; 83880; 84484; 85025; 85610; 85730; 87040; 87631; 93005; 94640; 97162; 97166; 99252; 99285; 99406; Q9967; A4216; G0463; J2405